=== PATIENT | male | born 1950 | race Caucasian/White ===

== ENCOUNTER 2021-01-17 12:34 | Outpatient (CLI) | payer MEDICARE, SELFPAY ==
--- NOTE | ~2021-01-17 | XR_ITS ---
EXAMINATION: XR chest 2V DATE: 01/17/2021 15:21 INDICATION: Cough. Pneumonia. TECHNIQUE: Frontal and lateral views of the chest were obtained. COMPARISON: Chest 2 views 11/06/2018 FINDINGS: There is mild atelectasis in left lower lung zone. No pleural effusion or pneumothorax. The heart size is normal. There is a right internal jugular port with tip at superior cavoatrial junctio n. There are old healed bilateral rib fractures. IMPRESSION: 1. Mild atelectasis in left lower lung zone. Reviewed, dictated and finalized at location A.
[2021-01-17 13:47] LABS: SARS-CoV-2 RNA PCR Negative (Negative)
[2021-01-17 15:10] LABS: Basophils Absolute Auto 0.02 K/mm3 (0.00-0.10); Basophils Percent Auto 0.2 % (0.0-1.0); Eosinophils Absolute Auto 0.27 K/mm3 (0.02-0.50); Eosinophils Percent Auto 2.5 % (1.0-6.0); Hematocrit 44.2 % (37.0-46.0); Hemoglobin 14.1 g/dL (12.4-15.3); Immature Granulocyte Absolute 0.04 K/mm3 (0.00-0.00); Immature Granulocyte Percent A 0.4 % (0.0-0.0); Lymphocytes Absolute Auto 0.93 K/mm3 (1.10-4.50); Lymphocytes Percent Auto 8.6 % (18.0-42.0); Mean Corpuscular HGB Conc 31.9 g/dL (32.0-36.0); Mean Corpuscular Hemoglobin 31.2 pg (27.0-31.0); Mean Corpuscular Volume 97.8 fL (78.0-102.0); Mean Platelet Volume 8.8 fl (8.7-11.0); Monocytes Absolute Auto 0.67 K/mm3 (0.10-0.90); Monocytes Percent Auto 6.2 % (2.0-11.0); Neutrophils Absolute Auto 8.8 K/mm3 (1.7-7.2); Neutrophils Percent Auto 82.1 % (50.0-70.0); Platelet Count Result 145 K/mm3 (150-420); Red Blood Count 4.52 M/mm3 (4.70-6.10); Red Cell Distribution Width 13.5 % (11.6-14.4); White Blood Count 10.8 K/mm3 (4.8-10.8)
[2021-01-17 15:43] LABS: Alanine Aminotransferase 36 U/L (16-63); Albumin Level 3.9 g/dL (3.4-5.0); Alkaline Phosphatase 62 U/L (46-116); Anion Gap 11 mmol/L (8-16); Aspartate Amino Transferase 12 U/L (15-37); Bilirubin,Total 0.7 mg/dL (0.00-1.00); Blood Urea Nitrogen 29 mg/dL (7-18); Calcium 9.2 mg/dL (8.5-10.1); Carbon Dioxide 31 mmol/L (21-32); Chloride 102 mmol/L (98-108); Estimated Glomerular Filt Rate 43; Glucose 107 mg/dL (70-99); Osmolality Calculated 303 mOsm/kg (285-295); Potassium 3.8 mmol/L (3.5-5.1); Sodium 144 mmol/L (136-145); Total Protein 6.8 g/dL (6.4-8.2)
[2021-01-17 16:25] LABS: Prostate Specific Antigen 4.1 ng/mL (< OR = 4.0)
== END 2021-01-17 12:35 | disposition home or self-care (01) ==
LOC: CHSLAB 12:41 → CHSIMG 14:58
PROVIDERS: PCP Internal Medicine; Visit Provider Internal Medicine
DX: R05 Cough (principal); J06.9 Acute upper respiratory infection, unspecified; Z12.5 Encounter for screening for malignant neoplasm of prostate; Z20.822 Contact with and (suspected) exposure to COVID-19
CPT/HCPCS: 36415; 71046; 80053; 84153; 85025; 87081; 87880; C9803; G0103; U0003; U0005

== ENCOUNTER 2021-02-05 07:02 | Outpatient (CLI) | payer MEDICARE, SELFPAY ==
--- NOTE | ~2021-02-05 | XR_ITS ---
EXAMINATION: XR chest 2V DATE: 02/05/2021 07:26 INDICATION: Cough TECHNIQUE: PA and lateral views of the chest are obtained. COMPARISON: 01/17/2021 FINDINGS: The lungs are free of acute opacities. There is no pleural effusion or pneumothorax. The ca rdiomediastinal silhouette is normal. There is moderate thoracic spondylosis. A right internal jugula r Port-A-Cath ends with its tip at the superior cavoatrial junction. There are healed bilateral rib f ractures. IMPRESSION: 1. No acute cardiopulmonary abnormality. Reviewed, dictated and finalized at location A.
[2021-02-05 07:52] LABS: Anion Gap 6 mmol/L (8-16); Blood Urea Nitrogen 33 mg/dL (7-18); Calcium 9.2 mg/dL (8.5-10.1); Carbon Dioxide 32 mmol/L (21-32); Chloride 105 mmol/L (98-108); Estimated Glomerular Filt Rate 42; Glucose 113 mg/dL (70-99); Osmolality Calculated 304 mOsm/kg (285-295); Potassium 4.2 mmol/L (3.5-5.1); Sodium 143 mmol/L (136-145)
== END 2021-02-05 07:03 | disposition home or self-care (01) ==
LOC: CHSLAB 07:04
PROVIDERS: PCP Internal Medicine; Visit Provider Internal Medicine
DX: R05 Cough (principal); R79.89 Other specified abnormal findings of blood chemistry; J18.9 Pneumonia, unspecified organism; Z09 Encounter for follow-up examination after completed treatment for conditions other than malignant neoplasm
CPT/HCPCS: 36415; 71046; 80048

== ENCOUNTER 2021-07-30 07:12 | Emergency (ER) | payer MEDICARE, SELFPAY ==
--- NOTE | 2021-07-30 07:20 | ED.EYEPROB ---
HPI - Eye Problem General Chief complaint: Eye Problems Stated complaint: left eye infection Time Seen by Provider: 07/30/21 07:21 Source: patient and RN notes reviewed Mode of arrival: ambulatory Limitations: no limitations History of Present Illness chief complaint: eye redness Onset (ago): day(s) (2) Onset description: sudden Duration: constant and progressively worsening Location: left eye Eye Symptoms: burning, redness and discharge (watery) Place: home Severity: mild Associated symptoms: none Treatments Prior to Arrival: none Related Data Home Medications Medication Instructions Recorded Confirmed Adult Aspirin 325 mg PO DAILY 07/30/21 07/30/21 acyclovir 400 mg PO BID 07/30/21 07/30/21 famotidine 20 mg PO BID 07/30/21 07/30/21 hydrocodone-acetaminophen 10 - 325 mg PO Q6-8H PRN 07/30/21 07/30/21 losartan 50 mg PO DAILY 07/30/21 07/30/21 nebivolol [Bystolic] 10 mg PO DAILY 07/30/21 07/30/21 pomalidomide [Pomalyst] 1 mg PO DAILY 07/30/21 07/30/21 potassium chloride 10 meq PO DAILY 07/30/21 07/30/21 triamterene-hydrochlorothiazid 1 tablet PO DAILY 07/30/21 07/30/21 Allergies Allergy/AdvReac Type Severity Reaction Status Date / Time No Known Allergies Allergy Verified 07/30/21 07:24 Review of Systems Review of Systems: All systems reviewed & are unremarkable except as noted in HPI and below PMFSH Past Medical History Medical History (Updated 07/30/21 @ 07:38 by William Villalpando MD) Hypertension Multiple myeloma Surgical History Surgical History (Updated 07/30/21 @ 07:38 by William Villalpando MD) Previous back surgery Social History Social History (Updated 07/30/21 @ 07:38 by William Villalpando MD) Smoking status: Never smoker Alcohol intake: never Substance use: never Exam Const: General: healthy appearing, no acute distress and alert Nutritional Appearance: well nourished and obese centrally obese Orientation/consciousness: patient oriented x3 HENMT: Head: normal to inspection Ears: external ears normal Eyes: Eyelids: eyelids normal Conjunctivae: conjunctival abnormality left conjunctival injection diffuse and discharge other (watery clear) Sclera: scleral abnormality left scleral injection diffuse Neck: Neck: normal visual inspection Resp: Effort & Inspection: normal respiratory effort Auscultation: clear to auscultation bilaterally Cardio: Rate: regular rate Rhythm: regular rhythm GI: GI Palp: Yes Soft to palpation, No Tenderness to palpation present (GI) and No Guarding due to palpation present (GI) Auscultation: normal bowel sounds Back/Spine/Pelvis: Cervical Spine: cervical ROM normal Thoracic/Lumbar Spine: thoraco-lumbar ROM normal Skin: General skin exam: normal color Rashes: no rashes Neuro: General: patient oriented x3, moves all extremities and no focal motor deficits Speech: normal speech Gait exam (Neuro): Normal gait present Extrem: General: normal to inspection and no clubbing, cyanosis or edema Psych: Appearance: grossly normal and well kempt Mental Status: mental status grossly normal Affect: normal affect Attitude: cooperative Thought content: Yes Normal thought content present Course Vital Signs Vital signs: Vital Signs Temperature 35.8 C L 07/30/21 07:25 Pulse Rate 82 07/30/21 07:25 Respiratory Rate 16 07/30/21 07:25 Blood Pressure 166/87 H 07/30/21 07:25 Pulse Oximetry 98 07/30/21 07:25 Temperature 35.8 C L 07/30/21 07:34 Pulse Rate 82 07/30/21 07:34 Respiratory Rate 16 07/30/21 07:34 Blood Pressure 166/87 H 07/30/21 07:34 Pulse Oximetry 98 07/30/21 07:34 Discharge Plan Discharge Clinical Impression: Conjunctivitis Qualifiers: Conjunctivitis type: acute Acute conjunctivitis type: bacterial Laterality: left Qualified Code(s): H10.32 - Unspecified acute conjunctivitis, left eye Patient Disposition: Home, Self-Care Condition: Stable Instructions: Conjunctivitis (ED) Prescriptions: New
[2021-07-30 07:25] VITALS: BP 166/87; PULSE 82; RESP 16; TEMP 35.8; O2SAT 98
[2021-07-30 07:34] VITALS: BP 166/87; PULSE 82; RESP 16; TEMP 35.8; O2SAT 98
== END 2021-07-30 07:44 | disposition home or self-care (01) ==
PROVIDERS: Emergency Provider Emergency Medicine; PCP Internal Medicine
DX: H10.32 Unspecified acute conjunctivitis, left eye (principal)
CPT/HCPCS: 99283

== ENCOUNTER 2021-12-25 13:30 | Outpatient (CLI) | payer MEDICARE, SELFPAY | END 2021-12-25 13:31 | disposition home or self-care (01) | LOC: CHSLAB 13:34 | PROVIDERS: PCP Internal Medicine | DX: C90.00 Multiple myeloma not having achieved remission (principal) | CPT/HCPCS: 87324 ==

== ENCOUNTER 2022-04-26 09:44 | Outpatient (CLI) | payer MEDICARE, SELFPAY | END 2022-04-26 09:45 | disposition home or self-care (01) | LOC: CHSLAB 09:49 | PROVIDERS: PCP Internal Medicine; Visit Provider Internal Medicine | DX: J32.9 Chronic sinusitis, unspecified (principal); R05.3 Chronic cough | CPT/HCPCS: 87070; 87205 ==

== ENCOUNTER 2022-05-06 08:37 | Outpatient (CLI) | payer MEDICARE, SELFPAY ==
--- NOTE | ~2022-05-06 | CT_ITS ---
EXAMINATION: CT sinus wo con DATE: 05/06/2022 09:04 INDICATION: Congestion for 2 months. Greenish sputum. TECHNIQUE: Computed tomography (CT) of the paranasal sinuses was performed without contrast. Iterativ e reconstruction technique was employed. Exam dose: 311.14 mGy-cm total exam DLP. COMPARISON: 10/23/2013 CT abdomen FINDINGS: There is minimal leftward bowing of the very anterior portion of the nasal septum, minimal rightward bowing of the mid nasal septum and more prominent leftward deviation of the posterior aspec t of the nasal septum. Moderate soft tissue swelling of the nasal turbinates. The ostiomeatal units are completely opacified bilaterally. There is severe mucoperiosteal thickening of the frontal sinuses and maxillary sinuses, with minimal residual aeration of these structures. There is severe bilateral opacification of the ethmoid air an ls. Moderate mucoperiosteal thickening of the sphenoid sinuses. The mastoid air cells are normally developed and aerated bilaterally. Middle and inner ear apparatus appear unremarkable bilaterally. IMPRESSION: Complete opacification of the ostiomeatal units and severe mucoperiosteal thickening and near opacification of the frontal and maxillary sinuses, prominent patchy opacification of the ethmo id air cells Mild to moderate mucoperiosteal thickening of the sphenoid sinuses Reviewed, dictated and finalized at [facility]. Reviewed, dictated and finalized at location B. CLOSER IMPRESSION: Complete opacification of the ostiomeatal units and severe mucoper iosteal thickening and near opacification of the frontal and maxillary sinuses, prominent patchy opacification of the ethmoid air cells Mild to moderate mucoperiosteal thickening of the sphenoid sinuses
== END 2022-05-06 08:38 | disposition home or self-care (01) ==
PROVIDERS: PCP Internal Medicine; Visit Provider Internal Medicine
DX: J32.9 Chronic sinusitis, unspecified (principal)
CPT/HCPCS: 70486

== ENCOUNTER 2022-07-11 07:07 | Outpatient (CLI) | payer MEDICARE, SELFPAY ==
--- NOTE | ~2022-07-11 | CT_ITS ---
Clinical Indication: Multiple myeloma CT Scan of the Chest with Contrast: Technique: Contiguous sections were acquired throughout the chest after intravenous administration of 75 cc of Omnipaque 350. Dose reduction technique was used on this scan by utilizing automated exposu re control and iterative reconstruction technique. The dose-length product (DLP) was 587.86 mGy-cm. Findings: There is no evidence of any significant mediastinal, hilar or axillary lymphadenopathy. There is no f illing defect in the pulmonary arterial tree to suggest pulmonary embolus. There is no evidence of ao rtic dissection or aneurysm. There is no evidence of pleural or pericardial effusion. Questionable minimal tree-in-bud opacities at the left lung base. Right lung is clear.. Images through the upper abdomen reveal diffuse fatty infiltration of the liver. There are probable chronic, healed left rib fracture deformities. No lytic lesion evident. Impression: No lytic lesion noted on the current exam. Probable chronic, healed left rib fracture deformities. Questionable minimal tree-in-bud opacities left lung base. Correlate for small airways infection. Reviewed, dictated and finalized at [facility]. TABOUT CREW Impression: No lytic lesion noted on the current exam. Probable chronic, healed left rib fr acture deformities. Questionable minimal tree-in-bud opacities left lung base. Correlate for small airways infection.
[2022-07-11 07:35] LABS: Estimated Glomerular Filt Rate 52
== END 2022-07-11 07:08 | disposition home or self-care (01) ==
PROVIDERS: PCP Internal Medicine
DX: C90.00 Multiple myeloma not having achieved remission (principal); R91.8 Other nonspecific abnormal finding of lung field
CPT/HCPCS: 71260; Q9967

== ENCOUNTER 2023-07-05 11:59 | Emergency (ER) | payer MEDICARE, SELFPAY ==
--- NOTE | ~2023-07-05 | XR_ITS ---
XR forearm LT 2V 07/05/2023 13:04 INDICATION: Left arm pain after fall PROCEDURE: 2 views left forearm COMPARISON: No prior studies for comparison. FINDINGS: Fracture, dislocation or subluxation is not identified. The soft tissues appear within norm al limits. No foreign bodies are identified. IMPRESSION: 1: NO ACUTE BONE OR JOINT ABNORMALITY IDENTIFIED. Reviewed, dictated and finalized at location B. FACTURING ENGINEER ASSEMBLY
--- NOTE | ~2023-07-05 | CT_ITS ---
EXAMINATION: CT BRAIN W/O DATE: 07/05/2023 13:03 INDICATION: Status post fall. Lightheadedness. TECHNIQUE: Computed tomography (CT) of the head was performed without intravenous contrast. The dose- length product was 681.00 mGy-cm. Automated exposure control and iterative reconstruction technique w ere employed. COMPARISON: No prior studies for comparison. FINDINGS: Normal brain parenchymal volume for age. Normal waldron-white differentiation. No acute intrac ranial hemorrhage, infarction, mass or mass effect. No ventriculomegaly or midline shift. Midline sagittal images demonstrate a normal corpus callosum, c raniovertebral junction and sella turcica. Basilar cisterns are patent. There is mucosal thickening of the maxillary, frontal, ethmoid and sphenoid sinuses. Mastoids are pne umatized. IMPRESSION: 1. No acute intracranial abnormality. 2: Pansinusitis. Reviewed, dictated and finalized at location B. HETIC STAPLE EXTRUDER
--- NOTE | ~2023-07-05 | XR_ITS ---
XR hand LT 2V 07/05/2023 13:05 INDICATION: Left hand pain after fall PROCEDURE: 3 views left hand COMPARISON: No prior studies for comparison. FINDINGS: Fracture, dislocation or subluxation is not identified. The soft tissues appear within norm al limits. No foreign bodies are identified. IMPRESSION: 1: NO ACUTE BONE OR JOINT ABNORMALITY IDENTIFIED. Reviewed, dictated and finalized at location B. LIFT MECHANIC
--- NOTE | ~2023-07-05 | CT_ITS ---
EXAMINATION: CT cervical spine wo con DATE: 07/05/2023 13:04 INDICATION: Status post fall. TECHNIQUE: Computed tomography (CT) of the cervical spine was performed without intravenous contrast. The dose-length product was 443 mGy-cm. Automated exposure control and iterative reconstruction tech nique were employed. COMPARISON: None FINDINGS: No fracture, subluxation or dislocation. Craniovertebral junction is normal. Odontoid proce ss is normal. There is disc narrowing and endplate degenerative change at multiple levels most advanc ed at C5-6 and C6-7. No evidence for perched facet. Spinous processes are normal. There is mild multi level uncinate and facet hypertrophy. No paraspinal soft tissue abnormality. IMPRESSION: 1. No acute abnormality of the cervical spine. Reviewed, dictated and finalized at location B. ECTRIC PRESS OPERATOR
--- NOTE | ~2023-07-05 | CT_ITS ---
EXAMINATION: CT lumbar spine wo con DATE: 07/05/2023 13:05 INDICATION: Back pain. Status post fall. TECHNIQUE: Computed tomography (CT) of the was performed without intravenous contrast. The dose-lengt h product was 1201.11 mGy-cm. Automated exposure control and iterative reconstruction technique were employed. COMPARISON: None FINDINGS: There is levoscoliosis. There is disc narrowing at L3-4, L4-5 and L5-S1. Vertebral body hei ghts are maintained. There is multilevel facet hypertrophy. There is grade 1 spondylolisthesis at L4- 5 secondary to degenerative change. There is a left-sided pseudoarticulation at L5-S1. There is a com plex partially calcified mass of the left kidney, suspicious for malignancy. Recommend correlation wi th MRI abdomen. There is a large exophytic right renal cyst, partially visualized. IMPRESSION: 1. No acute abnormality of the abdomen. 2: Complex partially calcified 3 cm left renal mass, suspicious for malignancy. Recommend correlatio n with MRI without and with contrast. 3: Moderate lumbar spondylosis. Reviewed, dictated and finalized at location B. LE TENDER IMPRESSION: 1. No acute abnormality of the abdomen. 2: Complex partially calcified 3 cm left renal mass, suspicious for malignancy . Recommend correlation with MRI without and with contrast. 3: Moderate lumbar spondylosis.
[2023-07-05 12:02] VITALS: BP 159/90; PULSE 76; TEMP 36.8; O2SAT 96
--- NOTE | 2023-07-05 12:46 | ECG_ITS ---
Measurements Intervals Maurice Rate: 75 P: 242 MI: 151 QRS: -46 QRSD: 105 T: -79 QT: 379 QTc: 424 Interpretive Statements SINUS RHYTHM EARLY PRECORDIAL R/S TRANSITION INFERIOR INFARCT, AGE INDETERMINATE BASELINE ARTIFACT- I, II, III, AVR, AVL, AVF, V1 ABNORMAL ECG NO PREVIOUS ECG AVAILABLE FOR COMPARISON Electronically Signed On 07-07-2023 12:01:16 BREAKER OPERATOR by Porfirio Mendoza D.O.
[2023-07-05 13:18] LABS: Hematocrit 41.7 % (37.0-46.0); Hemoglobin 12.2 g/dL (12.4-15.3); Mean Corpuscular HGB Conc 29.3 g/dL (32.0-36.0); Mean Corpuscular Hemoglobin 25.3 pg (27.0-31.0); Mean Corpuscular Volume 86.3 fL (78.0-102.0); Mean Platelet Volume 8.8 fl (8.7-11.0); Platelet Count Result 219 K/mm3 (150-420); Red Blood Count 4.83 M/mm3 (4.70-6.10); Red Cell Distribution Width 17.9 % (11.6-14.4); White Blood Count 8.7 K/mm3 (4.8-10.8)
[2023-07-05 13:35] LABS: Alanine Aminotransferase 26 U/L (16-63); Albumin Level 3.5 g/dL (3.4-5.0); Alkaline Phosphatase 69 U/L (46-116); Anion Gap 7 mmol/L (8-16); Aspartate Amino Transferase 16 U/L (15-37); Bilirubin,Total 0.7 mg/dL (0.00-1.00); Blood Urea Nitrogen 27 mg/dL (7-18); Calcium 8.9 mg/dL (8.5-10.1); Carbon Dioxide 32 mmol/L (21-32); Chloride 103 mmol/L (98-108); Estimated CRCL calculation 59 ml/min; Estimated Glomerular Filt Rate 52; Glucose 112 mg/dL (70-99); Osmolality Calculated 300 mOsm/kg (285-295); Potassium 4.1 mmol/L (3.5-5.1); Sodium 142 mmol/L (136-145); Total Protein 6.5 g/dL (6.4-8.2)
--- NOTE | 2023-07-05 13:42 | ED.FALL ---
HPI - Fall General Chief Complaint: Fall Stated Complaint: fall Time Seen by Provider: 07/05/23 12:02 Source: patient and family Mode of arrival: ambulatory Limitations: no limitations History of Present Illness HPI Narrative: 72 yo M with PMHx of chronic sinusitis, HTN, chronic back pain, presents to ER after falling today. Said since his sinus surgery for persistent chronic sinus disease, he's been having increased coughing. Today was having a coughing fit, after which he became lightheaded and fell to the ground. May have blacked out for a few seconds. hit his head, left hand and left forearm while catching himself on the ground. In ER, he is alert, awake, giving clear history. He denied any headache, chest pain, or shortness of breath. Related Data Home Medications Medication Instructions Recorded Confirmed Adult Aspirin 325 mg PO DAILY 07/30/21 07/05/23 famotidine 20 mg PO BID 07/30/21 07/05/23 hydrocodone-acetaminophen 10 - 325 mg PO Q6-8H PRN Pain 07/30/21 07/05/23 losartan 50 mg PO DAILY 07/30/21 07/05/23 nebivolol 10 mg tablet (Bystolic) 10 mg PO DAILY 07/30/21 07/05/23 potassium chloride 10 mEq 10 meq PO DAILY 07/30/21 07/05/23 tablet,extended release allopurinol 300 mg tablet 300 mg PO DAILY 07/05/23 07/05/23 Allergies Allergy/AdvReac Type Severity Reaction Status Date / Time No Known Allergies Allergy Verified 07/05/23 12:54 Review of Systems Constitutional: Constitutional: Reports as per HPI and Reports no additional constitutional complaints Eyes: Eyes: Reports as per HPI and Reports no additional eye complaints ENT: Reports system reviewed and no additional complaints, except as documented and Reports as per HPI Cardiovascular: Cardiovascular: Reports as per HPI and Reports no additional cardiovascular complaints Respiratory: Respiratory: Reports as per HPI and Reports no additional respiratory complaints Gastrointestinal: Gastrointestinal: Reports as per HPI and Reports no additional gastrointestinal complaints Genitourinary: Genitourinary: Reports as per HPI Musculoskeletal: Musculoskeletal: Reports no additional musculoskeletal complaints and Reports as per HPI Integumentary/Breasts: Skin/Breast: Reports system reviewed and no additional complaints, except as docu and Reports as per HPI Neurologic: Reports system reviewed and no additional complaints, except as documented and Reports as per HPI Psychiatric: Psychiatric: Reports no additional psychiatric complaints and Reports as per HPI Endocrine: Endocrine: Reports no additional endocrine complaints and Reports as per HPI Hematologic/Lymphatic: Hematologic/Lymphatic: Reports no additional hematologic/lymphatic complaints and Reports as per HPI Allergic/Immunologic: Allergic/Immunologic: Reports no additional allergic/immunologic complaints and Reports as per HPI [facility] Past Medical History Medical History (Updated 07/05/23 @ 13:44 by Raji Estrada MD) Hypertension Multiple myeloma Surgical History Surgical History (System 09/04/22 @ 08:12 by Sveta Barrios) Previous back surgery Social History Social History (System 09/04/22 @ 08:12 by Sveta Barrios) Smoking status: Never smoker Alcohol intake: never Substance use: never Exam Const: General: cooperative, healthy appearing, comfortable, no acute distress, well developed, alert, awake, average body habitus and well nourished Nutritional Appearance: obese Orientation/consciousness: oriented to person, oriented to place and oriented to time Limitations: no limitations HENMT: Head: normal to inspection Ears: hearing grossly normal bilaterally, external ears normal and TM's normal bilaterally Face/Nose/Sinus: Normal external nose present, Normal nares present, No nasal polyps present, Normal nasal mucous membranes and turbinates present, Normal septum present, No nasal discharge present, normal facial exam, sinuses nontender and face symmetric Face and sinus: n
[2023-07-05 13:50] VITALS: BP 145/70; PULSE 79; RESP 16; TEMP 36.5; O2SAT 99
== END 2023-07-05 13:52 | disposition home or self-care (01) ==
PROVIDERS: Emergency Provider Emergency Medicine; PCP Internal Medicine
DX: R55 Syncope and collapse (principal); I10 Essential (primary) hypertension; Z79.82 Long term (current) use of aspirin; Z79.891 Long term (current) use of opiate analgesic; Z79.899 Other long term (current) drug therapy; W19.XXXA Unspecified fall, initial encounter
CPT/HCPCS: 36415; 70450; 72125; 72131; 73090; 73120; 80053; 85027; 93005; 99284

== ENCOUNTER 2023-08-06 08:10 | Emergency (ER) | payer MEDICARE, SELFPAY ==
[2023-08-06] VITALS (9 sets, daily range): BP systolic 113–141; BP diastolic 65–79; PULSE 83–105; RESP 16; TEMP 36.7–37.1; O2SAT 94–97
--- NOTE | ~2023-08-06 | XR_ITS ---
EXAMINATION: XR chest 1V portable DATE: 08/06/2023 09:08 INDICATION: Fever, chronic cough and multiple myeloma TECHNIQUE: frontal view of the chest was obtained. COMPARISON: Chest radiograph dated 02/05/2021 FINDINGS: Right internal jugular central venous port catheter with distal tip at the caudal superior vena cava. The lungs remain clear with no focal airspace opacities, pulmonary edema, pleural effusion or pneumo thorax. The cardiomediastinal silhouette is normal. A few bilateral old healed rib fractures. IMPRESSION: 1. No acute cardiopulmonary disease. Reviewed, dictated and finalized at location B. ERCIAL INTERNSHIP
--- NOTE | ~2023-08-06 | CT_ITS ---
EXAMINATION: CT brain wo con DATE: 08/06/2023 09:17 INDICATION: Altered mental status. TECHNIQUE: Computed tomography (CT) of the head was performed without intravenous contrast. The mA wa s adjusted according to patient size. Iterative reconstruction technique was employed. The dose-lengt h product was 605.33 mGy-cm. COMPARISON: Head CT 07/05/2023 FINDINGS: There is no intracranial hemorrhage, acute infarction, or abnormal intracranial mass lesion . The ventricles are normal in size. There is extensive mucosal thickening in the paranasal sinuses w ith thickening of the sinus carrasquillo, consistent with chronic sinusitis. There are changes of ethmoidect omies. There are likely changes of ocular lens replacement surgeries. The mastoid air cells are linda l. IMPRESSION: 1. Normal brain. 2. Chronic sinusitis. Reviewed, dictated and finalized at location A. EATION PROGRAM SPECIALIST
--- NOTE | 2023-08-06 08:42 | ED.AMS ---
HPI - Altered Mental Status General Chief Complaint: Altered Mental Status Stated Complaint: uti Time Seen by Provider: 08/06/23 08:25 Source: patient and family History of Present Illness HPI narrative: 72-year-old male with a history of chronic sinusitis status post sinus surgery, chronic low back pain status post back surgery, CKD, hypertension, prostatitis, multiple myeloma status post stem cell transplant and currently on a research truck got chemotherapy yesterday and presents to the ER with a 1 day history of -- dysuria with increased frequency of micturition -- fever with a T-max of 100.4? this morning -- altered mental status-- patient appears to be staring blankly but is oriented. No focal neuro deficits. MD complaint: altered mental status Onset (ago): day(s) ( Symptoms started yesterday.) Timing confirmed by: spouse Severity: mild Consistency of symptoms: constant Context: history of similar presentation ( History of similar presentation during a prior UTI.) and cancer Associated symptoms: cough and fever Related Data Home Medications Medication Instructions Recorded Confirmed famotidine 20 mg PO BID 07/30/21 08/06/23 hydrocodone-acetaminophen 10 - 325 mg PO Q6-8H PRN Pain 07/30/21 08/06/23 losartan 50 mg PO DAILY 07/30/21 08/06/23 nebivolol 10 mg tablet (Bystolic) 5 mg PO DAILY 07/30/21 08/06/23 potassium chloride 10 mEq 10 meq PO DAILY 07/30/21 08/06/23 tablet,extended release allopurinol 300 mg tablet 300 mg PO DAILY 07/05/23 08/06/23 acyclovir 400 mg tablet 400 mg PO BID 08/06/23 08/06/23 budesonide 0.5 mg/2 mL suspension 0.5 mg inhalation DAILY 08/06/23 08/06/23 for nebulization ferrous sulfate 325 mg (65 mg 325 mg PO BID 08/06/23 08/06/23 iron) tablet triamcinolone acetonide 0.5 % 1 applic topical BID 08/06/23 08/06/23 topical cream triamterene 37.5 1 tablet PO DAILY 08/06/23 08/06/23 mg-hydrochlorothiazide 25 mg tablet Allergies Allergy/AdvReac Type Severity Reaction Status Date / Time No Known Allergies Allergy Verified 08/06/23 08:20 Review of Systems Review of Systems: All systems reviewed & are unremarkable except as noted in HPI and below Constitutional: Constitutional: Reports as per HPI, Reports no additional constitutional complaints and Reports fever(s) Eyes: Eyes: Reports as per HPI and Reports no additional eye complaints ENT: Reports system reviewed and no additional complaints, except as documented and Reports as per HPI Comments: Chronic nasal congestion with postnasal drip. Cardiovascular: Cardiovascular: Reports as per HPI and Reports no additional cardiovascular complaints Respiratory: Respiratory: Reports as per HPI, Reports no additional respiratory complaints and Reports cough Gastrointestinal: Gastrointestinal: Reports as per HPI and Reports no additional gastrointestinal complaints Genitourinary: Genitourinary: Reports no additional male genitourinary complaints, Reports dysuria and Reports urinary frequency Musculoskeletal: Musculoskeletal: Reports no additional musculoskeletal complaints and Reports as per HPI Integumentary/Breasts: Skin/Breast: Reports system reviewed and no additional complaints, except as docu and Reports as per HPI Neurologic: Reports system reviewed and no additional complaints, except as documented, Reports as per HPI and Reports confusion Psychiatric: Psychiatric: Reports no additional psychiatric complaints and Reports as per HPI Endocrine: Endocrine: Reports no additional endocrine complaints and Reports as per HPI Hematologic/Lymphatic: Hematologic/Lymphatic: Reports no additional hematologic/lymphatic complaints and Reports as per HPI Allergic/Immunologic: Allergic/Immunologic: Reports no additional allergic/immunologic complaints and Reports as per HPI [facility] Past Medical History Medical History (Updated 08/06/23 @ 10:39 by Mandeep Cardona MD) Hypertension Multiple myeloma Sinusitis Surgical History S
[2023-08-06 08:58] LABS: Basophils Absolute Auto 0.03 K/mm3 (0.00-0.10); Basophils Percent Auto 0.3 % (0.0-1.0); Eosinophils Absolute Auto 0.02 K/mm3 (0.02-0.50); Eosinophils Percent Auto 0.2 % (1.0-6.0); Hematocrit 39.1 % (37.0-46.0); Hemoglobin 11.9 g/dL (12.4-15.3); Immature Granulocyte Absolute 0.06 K/mm3 (0.00-0.00); Immature Granulocyte Percent A 0.5 % (0.0-0.0); Lymphocytes Absolute Auto 0.44 K/mm3 (1.10-4.50); Lymphocytes Percent Auto 3.9 % (18.0-42.0); Mean Corpuscular HGB Conc 30.4 g/dL (32.0-36.0); Mean Corpuscular Hemoglobin 25.4 pg (27.0-31.0); Mean Corpuscular Volume 83.4 fL (78.0-102.0); Mean Platelet Volume 8.8 fl (8.7-11.0); Neutrophils Absolute Auto 9.8 K/mm3 (1.7-7.2); Neutrophils Percent Auto 87.1 % (50.0-70.0); Platelet Count Result 169 K/mm3 (150-420); Red Blood Count 4.69 M/mm3 (4.70-6.10); Red Cell Distribution Width 16.9 % (11.6-14.4); White Blood Count 11.2 K/mm3 (4.8-10.8)
[2023-08-06 09:10] LABS: Appearance Urine Slightly Cloudy (Clear); Bilirubin Urine Negative (Negative); Color Urine Light Yellow (Yellow); Glucose Urine UA Negative (Negative); Ketones Urine Negative (Negative); Leukocyte Esterase Ur 1+ LEU/UL (Negative); Nitrate Urine Negative (Negative); Protein Urine Trace (Negative); Specific Grav Ur 1.025 (1.010-1.020); Urobilinogen Urine 0.2 mg/dL (0.2-1.0); pH Urine 5.5 (5.0-8.0)
[2023-08-06 09:15] LABS: Add Urine Microscopic? YES; Bacteria Urine 3+ /hpf; Blood Urine Trace-lysed (Negative); RBC Urine 0-2 /hpf (0-2)
[2023-08-06 09:19] LABS: Lactic Acid Reflex 1.1 mmol/L (0.4-2.0)
[2023-08-06 09:23] LABS: Uric Acid 7.6 mg/dL (3.5-7.2)
[2023-08-06 09:24] LABS: Magnesium 1.8 mg/dL (1.8-2.4)
[2023-08-06 09:28] LABS: Alanine Aminotransferase 18 U/L (16-63); Albumin Level 3.2 g/dL (3.4-5.0); Alkaline Phosphatase 59 U/L (46-116); Anion Gap 10 mmol/L (8-16); Aspartate Amino Transferase 14 U/L (15-37); Bilirubin,Total 0.8 mg/dL (0.00-1.00); Blood Urea Nitrogen 21 mg/dL (7-18); Calcium 8.5 mg/dL (8.5-10.1); Carbon Dioxide 29 mmol/L (21-32); Chloride 103 mmol/L (98-108); Estimated CRCL calculation 59 ml/min; Estimated Glomerular Filt Rate 52; Glucose 139 mg/dL (70-99); Lipase 17 U/L (16-77); NT Pro B Type Natriuretic Pept 383 pg/mL (0-125); Osmolality Calculated 299 mOsm/kg (285-295); Potassium 3.2 mmol/L (3.5-5.1); Sodium 142 mmol/L (136-145); Total Protein 6.3 g/dL (6.4-8.2); Troponin I 35.2 ng/L (0.00-60.4)
[2023-08-06] MEDS: LIDOCAINE HCL 1% LOCAL INJ 10 ML VIAL 2 ML INFILTRATE (10:23)
[2023-08-06 10:24] LABS: Influenza A QL RT-PCR Negative (Negative); Influenza B QL RT-PCR Negative (Negative); RSV RNA, RT-PCR Negative (Negative); SARS-CoV-2 RNA PCR Negative (Negative)
[2023-08-06] MEDS: cefTRIAXone 1 GM VIAL IM (10:24)
[2023-08-06 12:11] LABS: Prostate Specific Antigen 23.5 ng/mL (< OR = 4.0)
--- NOTE | 2023-08-08 14:27 | PC.NURSE ---
urine culture reviewed, pt was admitted to floor and on abt. no action needed
== END 2023-08-06 10:47 | disposition home or self-care (01) ==
PROVIDERS: Emergency Provider Internal Medicine Critical Care Medicine; PCP Internal Medicine
DX: N30.00 Acute cystitis without hematuria (principal); M1A.20X0 Drug-induced chronic gout, unspecified site, without tophus (tophi); R41.0 Disorientation, unspecified; C90.00 Multiple myeloma not having achieved remission; I12.9 Hypertensive chronic kidney disease with stage 1 through stage 4 chronic kidney disease, or unspecified chronic kidney disease; N18.31 Chronic kidney disease, stage 3a; Z79.899 Other long term (current) drug therapy; Z79.891 Long term (current) use of opiate analgesic; Z20.822 Contact with and (suspected) exposure to COVID-19; Z79.60 Long term (current) use of unspecified immunomodulators and immunosuppressants
CPT/HCPCS: 36415; 70450; 71045; 80053; 81001; 83605; 83690; 83735; 83880; 84153; 84484; 84550; 85025; 87077; 87086; 87088; 87186; 87637; 96365; 96366; 96367; 96368; 96372; 99284; 99285; A9270; G0378; J0692; J0696; J3370

== ENCOUNTER 2023-08-06 16:03 | Inpatient (IN) | payer MEDICARE, SELFPAY ==
[2023-08-06 16:05] VITALS: BP 129/79; PULSE 94; RESP 16; TEMP 37.2; O2SAT 98
--- NOTE | 2023-08-06 16:16 | ED.MALEGU ---
HPI - Male Genitourinary General Chief complaint: Urogenital-Male Stated complaint: UTI/ admit Time Seen by Provider: 08/06/23 16:14 Source: patient and family Mode of arrival: wheelchair Limitations: no limitations History of Present Illness HPI Narrative: 72-year-old male with a history of hypertension, chronic sinusitis status post surgery, CKD with a baseline crit GFR of 59, chronic low back pain, prostatitis, multiple myeloma status post failed stem cell transplant, failed usual chemotherapy and currently on a research chemotherapeutic medication which he received yesterday presented to the ER this morning with recurrent coughing, altered mental status, dysuria with increased frequency of micturition and fever with a T-max of 100.4?. The patient had a CT of the head which do not show any acute findings. the patient had a chest x-ray which did not show any infiltrates or evidence of CHF. The patient was noted to have urinary tract infection with elevated white cell count, elevated uric acid level of 7.6 and CKD with a BUN/creatinine of 21/1.36. He tested negative for influenza / COVID/RSV. The patient received Rocephin IM x1 and was discharged home on Augmentin. Subsequently the patient went to his primary care physician who contacted his cancer specialist. In view of his immunocompromised state the patient is advised admission and treating with anti staph coverage and coverage for Pseudomonas. the patient has a prior history of prostatitis. He had a PSA level done at his doctor's office which was noted to be more than 20. The patient returns to the ER. He complains of -- dysuria with increased frequency of micturition -- no significant change in his mental status, he continues to be intermittently confused. no focal neuro deficits noted. -- hiccups -- no subsequent fever spikes after his initial spike early this morning of 100.4 MD Complaint: dysuria Onset (ago): day(s) ( Two days) Duration: intermittent Quality: burning Relieving factors: none Exacerbating factors: none Associated symptoms: Reports dysuria and fever Related Data Home Medications Medication Instructions Recorded Confirmed famotidine 20 mg PO BID 07/30/21 08/06/23 hydrocodone-acetaminophen 10 - 325 mg PO Q6-8H PRN Pain 07/30/21 08/06/23 losartan 50 mg PO DAILY 07/30/21 08/06/23 nebivolol 10 mg tablet (Bystolic) 5 mg PO DAILY 07/30/21 08/06/23 potassium chloride 10 mEq 10 meq PO DAILY 07/30/21 08/06/23 tablet,extended release allopurinol 300 mg tablet 300 mg PO DAILY 07/05/23 08/06/23 acyclovir 400 mg tablet 400 mg PO BID 08/06/23 08/06/23 budesonide 0.5 mg/2 mL suspension 0.5 mg inhalation DAILY 08/06/23 08/06/23 for nebulization ferrous sulfate 325 mg (65 mg 325 mg PO BID 08/06/23 08/06/23 iron) tablet triamcinolone acetonide 0.5 % 1 applic topical BID 08/06/23 08/06/23 topical cream triamterene 37.5 1 tablet PO DAILY 08/06/23 08/06/23 mg-hydrochlorothiazide 25 mg tablet Allergies Allergy/AdvReac Type Severity Reaction Status Date / Time No Known Allergies Allergy Verified 08/06/23 16:16 Review of Systems Constitutional: Constitutional: Reports as per HPI, Reports no additional constitutional complaints, Reports fever(s) and Reports weakness Eyes: Eyes: Reports as per HPI and Reports no additional eye complaints ENT: Reports system reviewed and no additional complaints, except as documented and Reports as per HPI Cardiovascular: Cardiovascular: Reports as per HPI and Reports no additional cardiovascular complaints Respiratory: Respiratory: Reports as per HPI and Reports no additional respiratory complaints Gastrointestinal: Gastrointestinal: Reports as per HPI and Reports no additional gastrointestinal complaints Genitourinary: Genitourinary: Reports dysuria and Reports urinary frequency Musculoskeletal: Musculoskeletal: Reports no additional musculoskeletal complaints, Reports as per HPI and Reports back pain Integu
--- NOTE | 2023-08-06 16:43 | PC.NURSE ---
pt's pmd, dr Henson called. blood cultures were drawn today in his office. dr henson states he will monitor those test results and follow pt care accordingly. states he will notify hospitalist if preliminary report comes back positive as well.
--- NOTE | 2023-08-06 17:05 | ADMGEN ---
This patient, Michele Valle Jr., was admitted to 2nd Floor Room 206-1. Patient/family oriented to hospital policies and general routines including ID bracelet, bed and alarms, visiting hours, pain management, procedures, bathroom and other care routines, personal items, smoking policy, room service/diet, and visiting hours. Information on how to activate the Rapid Response Team has been discussed. Patient/Family are encouraged to report perceived risks to care and to ask questions if they do not understand what they are told or what they should do.
[2023-08-06 17:35] VITALS: BMI 39.5
[2023-08-06] MEDS: ACYCLOVIR 200 MG CAPSULE 400 MG BY MOUTH (18:09)
[2023-08-06] MEDS: FAMOTIDINE 20 MG TABLET PO (18:09)
[2023-08-06] MEDS: FERROUS SULFATE 325 MG TABLET DR BY MOUTH (18:10)
[2023-08-06] MEDS: CEFEPIME 2 GM/NS 50 ML 2 GM/50 ML BAG IVPB ×2 (18:14→21:35)
[2023-08-06 20:00] VITALS: BP 127/59; PULSE 96; PULSE 97; RESP 20; TEMP 37; O2SAT 95
[2023-08-06] MEDS: VANCOMYCIN 1,500 MG/NS 500 ML 1,500 MG/500 ML BAG 250 MG IVPB (21:34)
[2023-08-06] MEDS: DIPHENOXYLATE/ATROPINE (*CRX) 2.5 MG TABLET 2 TABLET PO (21:36)
[2023-08-06] MEDS: BUDESONIDE RESPULE NEB 0.5 MG/2 ML AMP INHALATION (21:36)
[2023-08-07] VITALS (10 sets, daily range): BP systolic 103–157; BP diastolic 53–75; PULSE 75–100; RESP 16–20; TEMP 36.6–37.3; O2SAT 89–98
--- NOTE | 2023-08-07 02:15 | PC.NURSE ---
Pt's spO2 for pre-breathing treatment completed at 21:35 at 95% RA w/a respiration rate of 20. Lung sounds diminished bilaterally when auscultating the posterior, lower lobes. Pt has chronic, ineffective cough w/no sputum. 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 Teaching on taking a grimm, deeper breathing completed simultaneously.
--- NOTE | 2023-08-07 02:21 | PC.NURSE ---
Post nebulizing treatment; pt's spO2 at 96% RA w/a respiration rate of 19. Lung sounds continue to be diminished w/no significant improvement on aeration. Cough still persistent, cough subdued for 10 minutes then pt proceeded to cough again.
[2023-08-07 05:18] LABS: Basophils Absolute Auto 0.04 K/mm3 (0.00-0.10); Basophils Percent Auto 0.4 % (0.0-1.0); Eosinophils Absolute Auto 0.11 K/mm3 (0.02-0.50); Eosinophils Percent Auto 1.1 % (1.0-6.0); Hematocrit 36.6 % (37.0-46.0); Hemoglobin 11.1 g/dL (12.4-15.3); Immature Granulocyte Absolute 0.04 K/mm3 (0.00-0.00); Immature Granulocyte Percent A 0.4 % (0.0-0.0); Lymphocytes Absolute Auto 0.87 K/mm3 (1.10-4.50); Lymphocytes Percent Auto 8.9 % (18.0-42.0); Mean Corpuscular HGB Conc 30.3 g/dL (32.0-36.0); Mean Corpuscular Hemoglobin 25.7 pg (27.0-31.0); Mean Corpuscular Volume 84.7 fL (78.0-102.0); Mean Platelet Volume 8.5 fl (8.7-11.0); Monocytes Absolute Auto 1.04 K/mm3 (0.10-0.90); Monocytes Percent Auto 10.7 % (2.0-11.0); Neutrophils Absolute Auto 7.6 K/mm3 (1.7-7.2); Neutrophils Percent Auto 78.5 % (50.0-70.0); Platelet Count Result 142 K/mm3 (150-420); Red Blood Count 4.32 M/mm3 (4.70-6.10); White Blood Count 9.7 K/mm3 (4.8-10.8)
[2023-08-07 05:30] LABS: Anion Gap 6 mmol/L (8-16); Blood Urea Nitrogen 21 mg/dL (7-18); Calcium 8.2 mg/dL (8.5-10.1); Carbon Dioxide 33 mmol/L (21-32); Chloride 102 mmol/L (98-108); Estimated CRCL calculation 56 ml/min; Estimated Glomerular Filt Rate 49; Glucose 126 mg/dL (70-99); Osmolality Calculated 297 mOsm/kg (285-295); Potassium 3.3 mmol/L (3.5-5.1); Sodium 141 mmol/L (136-145)
[2023-08-07 05:40] LABS: Magnesium 1.8 mg/dL (1.8-2.4)
[2023-08-07] MEDS: BUDESONIDE RESPULE NEB 0.5 MG/2 ML AMP INHALATION ×2 (06:02→17:30)
[2023-08-07 06:07] LABS: Toxigenic C. Diff NEGATIVE (NEGATIVE)
--- NOTE | 2023-08-07 06:20 | PCRCNOTE ---
RT gave Pulmicort at 0605. Unable to chart on worklist due to Pre/Post not available. Sp02 89%/94%. HR 89/91. BS clear/diminished. Loose, NPC.
[2023-08-07] MEDS: CEFEPIME 2 GM/NS 50 ML 2 GM/50 ML BAG IVPB ×3 (06:34→22:58)
--- NOTE | 2023-08-07 07:43 | PM.IMHP ---
H&P: HPI History of Present Illness Date/Time: 08/07/23 07:43 Chief Complaint: urinary tract infection, altered mental status Narrative: This is a 72-year-old male patient with a history of multiple myeloma status post bone marrow transplant x2 that have failed currently receiving investigational chemotherapy at [facility] who is admitted to the hospital due to urinary tract infection with altered mental status. Patient reports that he had chemotherapy at [facility] on [address] and patient had urinary frequency urgency and incontinence as well as fatigue. The next morning patient was experiencing symptoms worsening so he to the emergency department where he was evaluated and found to have urinalysis consistent with a urinary tract infection. Received IV ceftriaxone x1 and was discharged with a prescription for Augmentin. He then left the ER and went to see his primary care provider who called oncology and oncology recommended the patient be admitted to the hospital for IV antibiotics to cover MRSA and Pseudomonas until cultures are back. Blood cultures were obtained as well as urine culture in process from original ER visit. Patient reports that he was feeling out of it yesterday and his reports that he was nonsensical at times and sometimes had hard time formulating his thoughts. Patient status seemed to improve overnight but he had hard time sleeping. This morning patient is awake and alert only occasionally stumbling on what to say but speaking with clear vocalization. No focal weakness or stroke symptoms. Patient is ambulatory with a steady gait with standby assist to the restroom. He he did have multiple episodes of diarrhea (known side effect of his chemo) that improved after Lomotil. C diff was negative. Patient is eating and drinking well he is no longer incontinent. Patient denies nausea vomiting abdominal pain shortness a breath or any other concerning symptoms. Review of Systems Review of Systems: All systems reviewed & are unremarkable except as noted in HPI and below [facility] Past Medical History Medical History (Updated 08/07/23 @ 14:29 by Cory Torres APRN) Hypertension Multiple myeloma Sinusitis Surgical History Surgical History H/O sinus surgery Previous back surgery Social History Social History Smoking status: Never smoker Alcohol intake: never Substance use: never Do You Feel Safe in your Home?: Yes Lack of Transportation: No Lack of Food: Never True Current Housing: I Have Housing Concerned About Future Housing: No Difficulty Paying Gas/Electric Bills: No Difficulty Paying for Meds: No Currently Unemployed: No Education: Master's Degree or Higher Difficulty w/ Childcare or Family Care: No Spiritual care concerns: No Meds Home Medications and Allergies Home Medications Medication Instructions Recorded Confirmed Type famotidine 20 mg PO BID 07/30/21 08/06/23 History hydrocodone-acetaminophen 10 - 325 mg PO Q6-8H PRN Pain 07/30/21 08/06/23 History losartan 25 mg PO DAILY 07/30/21 08/07/23 History nebivolol 10 mg tablet (Bystolic) 5 mg PO DAILY 07/30/21 08/06/23 History potassium chloride 10 mEq 10 meq PO DAILY 07/30/21 08/06/23 History tablet,extended release allopurinol 300 mg tablet 300 mg PO DAILY 07/05/23 08/06/23 History acyclovir 400 mg tablet 400 mg PO BID 08/06/23 08/06/23 History amoxicillin 875 mg-potassium 1 tablet PO Q12H #14 tabs 08/06/23 08/06/23 Rx clavulanate 125 mg tablet budesonide 0.5 mg/2 mL suspension 0.5 mg inhalation DAILY 08/06/23 08/06/23 History for nebulization ferrous sulfate 325 mg (65 mg 325 mg PO BID 08/06/23 08/06/23 History iron) tablet triamcinolone acetonide 0.5 % 1 applic topical BID 08/06/23 08/06/23 History topical cream triamterene 37.5 1 tablet PO DAILY 08/06/23 08/06/23 History
[2023-08-07] MEDS: ACYCLOVIR 200 MG CAPSULE 400 MG BY MOUTH ×2 (08:42→17:00)
[2023-08-07] MEDS: FAMOTIDINE 20 MG TABLET PO ×2 (08:42→17:01)
[2023-08-07] MEDS: allopurinoL 300 MG TABLET PO (08:42)
[2023-08-07] MEDS: POTASSIUM CHLORIDE 10 MEQ ER TABLET PO (08:42)
[2023-08-07] MEDS: TRIAMTERENE 37.5 MG/HCTZ 25 MG (MAXZIDE) TABLET 0.5 TAB PO (08:43)
[2023-08-07] MEDS: HEPARIN SODIUM 5,000 UNITS/ML VIAL 5000 UNITS SUB-Q (08:43)
[2023-08-07] MEDS: FERROUS SULFATE 325 MG TABLET DR BY MOUTH ×2 (08:43→17:01)
[2023-08-07] MEDS: KCL 20 MEQ/SW 100 ML 100 ML 50 MEQ IVPB (08:45)
[2023-08-07] MEDS: MAGNESIUM SULF 2 GM/WATER 50ML 2 GM/50 ML BAG IVPB (08:45)
[2023-08-07] MEDS: SODIUM CHLORIDE 0.9% IV 250 ML 50 ML IV CONT (08:46)
[2023-08-07] MEDS: POTASSIUM CHLORIDE 20 MEQ ER TABLET 40 MEQ PO (08:53)
--- NOTE | 2023-08-07 11:31 | PC.NURSE ---
Called Jose RESIDENT SERVICES SUPERVISOR to notify him of resulted urine culture from outside provider. No new orders received.
[2023-08-07] MEDS: VANCOMYCIN 1,500 MG/NS 500 ML 1,500 MG/500 ML BAG 250 MG IVPB (17:53)
[2023-08-07] MEDS: ENOXAPARIN 40 MG/0.4 ML SYRINGE SUB-Q (20:06)
[2023-08-07] MEDS: NEBIVOLOL HCL 5 MG TABLET PO (20:06)
--- NOTE | 2023-08-07 20:43 | PC.NURSE ---
Patient in bed resting. Call light and belongings within reach. Patient able to ambulate to/from bathroom. No c/o offered.
[2023-08-08] VITALS: BP 139/80; PULSE 96; RESP 16; TEMP 36.7; O2SAT 97
[2023-08-08 05:53] LABS: Basophils Absolute Auto 0.02 K/mm3 (0.00-0.10); Basophils Percent Auto 0.4 % (0.0-1.0); Eosinophils Absolute Auto 0.19 K/mm3 (0.02-0.50); Eosinophils Percent Auto 3.9 % (1.0-6.0); Hematocrit 35.3 % (37.0-46.0); Hemoglobin 10.5 g/dL (12.4-15.3); Immature Granulocyte Absolute 0.03 K/mm3 (0.00-0.00); Immature Granulocyte Percent A 0.6 % (0.0-0.0); Lymphocytes Absolute Auto 0.37 K/mm3 (1.10-4.50); Lymphocytes Percent Auto 7.5 % (18.0-42.0); Mean Corpuscular HGB Conc 29.7 g/dL (32.0-36.0); Mean Corpuscular Hemoglobin 25.2 pg (27.0-31.0); Mean Corpuscular Volume 84.9 fL (78.0-102.0); Mean Platelet Volume 8.8 fl (8.7-11.0); Monocytes Absolute Auto 0.63 K/mm3 (0.10-0.90); Monocytes Percent Auto 12.8 % (2.0-11.0); Neutrophils Absolute Auto 3.7 K/mm3 (1.7-7.2); Neutrophils Percent Auto 74.8 % (50.0-70.0); Platelet Count Result 137 K/mm3 (150-420); Red Blood Count 4.16 M/mm3 (4.70-6.10); Red Cell Distribution Width 16.8 % (11.6-14.4); White Blood Count 4.9 K/mm3 (4.8-10.8)
[2023-08-08 06:10] LABS: Alanine Aminotransferase 19 U/L (16-63); Albumin Level 2.5 g/dL (3.4-5.0); Alkaline Phosphatase 56 U/L (46-116); Anion Gap 4 mmol/L (8-16); Aspartate Amino Transferase 22 U/L (15-37); Bilirubin,Total 0.5 mg/dL (0.00-1.00); Blood Urea Nitrogen 23 mg/dL (7-18); Carbon Dioxide 32 mmol/L (21-32); Chloride 104 mmol/L (98-108); Estimated CRCL calculation 55 ml/min; Estimated Glomerular Filt Rate 48; Glucose 114 mg/dL (70-99); Magnesium 2.2 mg/dL (1.8-2.4); Osmolality Calculated 294 mOsm/kg (285-295); Potassium 3.8 mmol/L (3.5-5.1); Sodium 140 mmol/L (136-145); Total Protein 5.5 g/dL (6.4-8.2)
[2023-08-08] MEDS: CEFEPIME 2 GM/NS 50 ML 2 GM/50 ML BAG IVPB ×2 (06:34→13:22)
[2023-08-08] MEDS: BUDESONIDE RESPULE NEB 0.5 MG/2 ML AMP INHALATION (06:59)
[2023-08-08 07:01] VITALS: PULSE 73; RESP 18; O2SAT 93
[2023-08-08 07:12] VITALS: PULSE 73; RESP 18; O2SAT 93
[2023-08-08 08:00] VITALS: BP 124/67; PULSE 75; RESP 16; TEMP 36.4; O2SAT 97
[2023-08-08] MEDS: FAMOTIDINE 20 MG TABLET PO (09:17)
[2023-08-08] MEDS: allopurinoL 300 MG TABLET PO (09:17)
[2023-08-08] MEDS: POTASSIUM CHLORIDE 10 MEQ ER TABLET PO (09:17)
[2023-08-08] MEDS: ACYCLOVIR 200 MG CAPSULE 400 MG BY MOUTH (09:17)
[2023-08-08] MEDS: LOSARTAN POTASSIUM 25 MG TABLET PO (09:17)
[2023-08-08] MEDS: DIPHENOXYLATE/ATROPINE (*CRX) 2.5 MG TABLET 1 TABLET PO (09:18)
--- NOTE | 2023-08-08 14:50 | PC.NURSE ---
Discharge instructions reviewed with patient and his . All questions answered. Pt escorted via wheelchair and assisted into private vehicle.
--- NOTE | 2023-08-11 09:43 | PM.DS ---
DS: Admitting Diagnosis Discharge Date 08/08/23 Admitting Diagnosis Urinary tract infection, altered mental status, multiple myeloma, hypertension DS: Discharge Diagnosis Discharge Diagnosis (1) Urinary tract infection: Code(s): N39.0 - Urinary tract infection, site not specified Status: Acute (2) Altered mental status: Code(s): R41.82 - Altered mental status, unspecified Status: Resolved (3) Multiple myeloma: Code(s): C90.00 - Multiple myeloma not having achieved remission Status: Chronic (4) Hypertension: Code(s): I10 - Essential (primary) hypertension Status: Chronic DS: Summary Hospital Course Reason for hospitalization: Urinary tract infection with immunocompromised state and altered mental status Hospital Course: This is a 72-year-old male patient with history of multiple myeloma status post failed bone marrow transplant x2 currently on investigational chemotherapy at [facility]. Patient began experiencing urinary symptoms then lead to confusion and altered LOC. He initially came to the emergency department was treated with Rocephin and sent home. He followed up with primary care who contacted Oncology who wanted the patient admitted to the hospital for IV antibiotics with coverage for Pseudomonas and MRSA pending urine culture. The urine culture obtained at [facility] came back positive for E coli that was quite sensitive. The antibiotic was deescalated to Augmentin with extended treatment duration to encompass 14 total days of coverage due to complex UTI in the setting immunocompromise and prescription was sent to preferred pharmacy. Patient was ready for discharge had returned back to baseline mental status. Vital signs stable. Status at Discharge Cognitive/behavioral status at discharge: Awake alert oriented and pleasant Functional status at discharge: independent ambulation Overall status at discharge: patient is back to baseline Time Spent with Patient Time attestation: Total time spent providing and/or coordinating discharge services: 35 minutes Time spent: Greater than 30 minutes Exam Narrative: GENERAL: Well-appearing, well-nourished, and in no acute distress. HEAD: Normocephalic, atraumatic. ENT:? Mucous membranes moist. CHEST: Clear to auscultation.? No respiratory distress. HEART: Regular rate and rhythm. ? Normal peripheral pulses. ABDOMEN: Soft, nontender, nondistended. EXTREMITIES: Normal range of motion. No peripheral edema. SKIN: Warm dry normal color NEURO: Alert and oriented x3. PSYCH: Normal mood and affect Discharge Plan Discharge Attending physician on discharge: Vicente Parikh Consulting providers: Cory Torres Discharging Clinician: Cory Torres Anticipated Discharge Date/Time: 08/08/23 15:00 Patient Disposition: Home, Self-Care Activity: as tolerated Diet: heart healthy Discharge Instructions: Augmentin twice daily starting tonight Lomotil as needed for diarrhea Follow up with Primary Care Provider and Oncologist. We will continue to monitor blood cultures and call if you need to return or change medications. Patient Instructions: Antibiotic Form, Diphenoxylate/Atropine (By mouth), Urinary Tract Infection in Men (DC), Fall Prevention for Older Adults (DC), Altered Mental Status (GEN) Stand Alone Forms: General Discharge Information, Work/School Release IP Follow-up/Referrals: Jatin Gamble MD [Primary Care Provider] - Follow Up with Primary Dr (Patient will call to make follow up appointment. Dr. Gamble office will not allow the hospital to make appointment. ) Discharge Medications: New diphenoxylate-atropine 2.5-0.025 mg Tablet 1 tablet PO Q2H PRN (Reason: Diarrhea) Qty: 12 0RF Continued allopurinol 300 mg tablet 300 mg PO DAILY triamcinolone acetonide 0.5 % cream 1 applic TOPICAL BID acyclovir 400 mg Tablet 400 mg PO BID
--- NOTE | 2023-08-12 13:02 | PC.NURSE ---
Spoke with for dc call back, doing ok at home, no questions regarding dc instructions
== END 2023-08-08 14:53 | disposition home or self-care (01) | DRG 690 ==
LOC: CHSED 16:34 → CHS2ND 16:54
PROVIDERS: Nurse Practitioner; Admitting Provider Internal Medicine; Emergency Provider Internal Medicine Critical Care Medicine; PCP Internal Medicine; Visit Provider Internal Medicine
DX: N39.0 Urinary tract infection, site not specified (principal); C90.00 Multiple myeloma not having achieved remission; I10 Essential (primary) hypertension; J32.9 Chronic sinusitis, unspecified
CPT/HCPCS: 36415; 70450; 71045; 80048; 80053; 81001; 83605; 83690; 83735; 83880; 84153; 84484; 84550; 85025; 87077; 87086; 87088; 87186; 87493; 87637; 94640; 96365; 96366; 96367; 96368; 96372; 99284; 99285; A9270; G0378; J0692; J0696; J1644; J1650; J3370; J3475; J3480; J7050

== ENCOUNTER 2024-08-10 08:04 | Outpatient (CLI) | payer MEDICARE, SELFPAY ==
[2024-08-10 09:04] LABS: Alanine Aminotransferase 24 U/L (16-63); Albumin Level 3.8 g/dL (3.4-5.0); Alkaline Phosphatase 77 U/L (46-116); Anion Gap 8 mmol/L (4-12); Aspartate Amino Transferase 12 U/L (15-37); Bilirubin,Total 0.7 mg/dL (0.00-1.00); Blood Urea Nitrogen 57 mg/dL (7-18); Carbon Dioxide 31 mmol/L (21-32); Chloride 107 mmol/L (98-108); Estimated Glomerular Filt Rate 24; Glucose 103 mg/dL (70-99); Osmolality Calculated 317 mOsm/kg (285-295); Potassium 4.1 mmol/L (3.5-5.1); Sodium 146 mmol/L (136-145); Total Protein 5.9 g/dL (6.4-8.2)
[2024-08-10 10:31] LABS: Prostate Specific Antigen 8.7 ng/mL (< OR = 4.0)
== END 2024-08-10 08:05 | disposition home or self-care (01) ==
LOC: CHSLAB 08:07
PROVIDERS: PCP Internal Medicine
DX: R97.20 Elevated prostate specific antigen [PSA] (principal); Z12.5 Encounter for screening for malignant neoplasm of prostate
CPT/HCPCS: 36415; 80053; 84153; G0103

== ENCOUNTER 2024-08-20 07:12 | Outpatient (CLI) | payer MEDICARE, SELFPAY ==
--- OUTSIDE RECORDS SUMMARY | 2024-08-20 07:16 | XMS_ITS | Encounter Summary ---
Author Organization [facility] Address [address] [place] [address] Care Team Providers Care Vertical Roll Operator Name Role Phone Jatin Gamble MD Primary Care Provider Hermelindo Butler MD Unavailable Roberto Rojo MD Unavailable [phone] Jatin Gamble MD Unavailable [phone] Garry Dukes MD Unavailable Lyndsey Fagan NP Unavailable [phone] Erlin Servin MD Unavailable [phone] Julian Valdez MD Unavailable [phone] Encounter Details Date Type Department Care Team (Late st Contact Info) Description 11/22/2021 Documentation [facility] Case Management [address] [place] [address] Forrest Epstein, RN Social History Tobacco Use Types Packs/Day Years Used Date Smoking Tobacco: Never Smokeless Tobacco: Never Alcohol Use Standard Drinks/Week Comments No 0 (1 standard drink = 0.6 oz pur e alcohol) Sex and Gender Information Value Date Recorded Sex Assigned at Not on file 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 Gender Identity Not on file Sexual Orientation Not on file documented as of this encounter Plan of Treatment Not on file documented as of this encounter Visit Diagnoses Not on filedocumented in this encounter Additional Health Concerns Infection Onset Date Last Indicated Resolved Time COVID: Suspected 04/02/2022 04/02/2022 04/02/2022 10:20 AM CDT Rhino/Enterovirus 04/02/2022 04/02/2022 04/09/2022 3:05 AM CDT COVID: Suspected 12/16/2023 12/16/2023 12/16/2023 10:59 AM CDT Rhino/Enterovirus 12/16/2023 12/16/2023 12/23/2023 3:05 AM CDT documented as of this encounter Care Teams Vertical Roll Operator Relationship Specialty Start Date End Date Jatin Gamble MD [address] [place] [address] PCP - General 10/07/16 Hermelindo Butler MD [address] [place] [address] Medical Oncologist/Hematologrust Medical Oncology 12/02/17 Roberto Rojo MD [address] [place] [id number] Medical Oncologist/Hematologrust Hematology and Oncology 12/02/17 Jatin Gamble MD [address] [place] [address] Referring Physician Internal Medicine 12/02/17 Garry Dukes MD [address] [place], [place] [id number] Referring Physician Urology 12/02/17 05/27/23 Lyndsey Fagan NP [address] [place], [place] [id number] Nurse Practitioner Medical Oncology 08/03/20 Erlin Servin MD [address] [place] [address] Consulting Physician Otolaryngology 10/04/22 [place] [address] [place] [address] Consulting Physician Urology 05/28/23 documented as of this encounter
--- OUTSIDE RECORDS SUMMARY | 2024-08-20 07:16 | XMS_ITS | Encounter Summary ---
Author Organization [facility] Address [address] [place] [address] Phone Care Team Providers Care Master Fire Control Technician Name Role Phone Jatin Gamble MD Primary Care Provider [phone] Hermelindo Butler MD Unavailable Roberto Rojo MD Unavailable [phone] Jatin Gamble MD Unavailable [phone] Garry Dukes MD Unavailable [phone] Lyndsey Fagan NP Unavailable Erlin Servin MD Unavailable [phone] Julian Valdez MD Unavailable Encounter Details Date Type Department Care Team (Latest Contact Info) Description 10/16/2017 Orders Only [facility] CONVERSION Scanning, Provider Social History Tobacco Use Types Packs/Day Years Used Date Smoking Tobacco: Never Assessed Sex and Gender Information Value Date Recorded Sex Assigned at Not on file 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 Gender Identity Not on file Sexual Orientation Not on file documented as of this encounter Plan of Treatment Not on file documented as of this encounter Procedures Procedure Name Priority Date/Time Associated Diagnosis Comments PULMONARY FUNCTION TEST (PFT) 10/16/2017 9:19 AM CDT documented in this encounter Results * PULMONARY FUNCTION TEST (PFT) (10/16/2017 9:19 AM CDT) Anatomical Region Laterality Modality PFT us Provider Scanning PFT ORDERABLES Final Result documented in this encounter Visit Diagnoses Not on filedocumented in this encounter Additional Health Concerns Infection Onset Date Last Indicated Resolved Time COVID: Suspected 04/02/2022 04/02/2022 04/02/2022 10:20 AM CDT Rhino/Enterovirus 04/02/2022 04/02/2022 04/09/2022 3:05 AM CDT COVID: Suspected 12/16/2023 12/16/2023 12/16/2023 10:59 AM CDT Rhino/Enterovirus 12/16/2023 12/16/2023 12/23/2023 3:05 AM CDT documented as of this encounter Care Teams Master Fire Control Technician Relationship Specialty Start Date End Date Jatin Gamble MD [address] [place] [address] PCP - General 10/07/16 Hermelindo Butler MD [address] [place] [id number] [facility] 12/02/17 Roberto Rojo MD [address] [place] [address] [facility]cology 12/02/17 Jatin Gamble MD [address] [place] [address] Referring Physician Internal Medicine 12/02/17 Garry Dukes MD [address] [place], [place] [id number] Referring Physician Urology 12/02/17 05/27/23 Lyndsey Fagan NP [address] [place] [address] Nurse Practitioner Medical Oncology 08/03/20 Erlin Servin MD [address] [place] [address] Consulting Physician Otolaryngology 10/04/22 [place] [address] [place] [address] Consulting Physician Urology 05/28/23 documented as of this encounter
--- OUTSIDE RECORDS SUMMARY | 2024-08-20 07:16 | XMS_ITS ---
Author Organization [facility] Address [address] [place] [address] Care Team Providers Care Social Service Technician Name Role Phone Jatin Gamble MD Primary Care Provider Hermelindo Butler MD Unavailable Roberto Rojo MD Unavailable [phone] Jatin Gamble MD Unavailable [phone] Lyndsey Fagan NP Unavailable Erlin Servin MD Unavailable [phone] Julian Valdez MD Unavailable Active Problems Patient Care Coordination No te Formatting of this note is d ifferent from the original. BMT Inpatient Care Coordination Overview Diagnosis MM Floor 9800 Treatment Plan Clinical Trial [id number] [facility] Reason for Admission Study chemo C1D1 Transplant/IEC Planning BMT/IEC Plan HLA typing/IDMs Insurance Approvals/Issues Discharge Planning Anticipated Discharge Date 11/01 Patient Education Completed Issue to be Resolved Before Discharge Discharge Disposition Home Requests Sent to Case Management and/or Medical Assistants Post-Discharge Follow-Up Living Situation/Distance from [place], [place] (45 min) Caregiver Self, Lab/Transfusion Frequency 7CAM study labs weekly per VIS/treatment plan Phone: Fax: Venous Access & Care implanted vascular device Local Oncologist Contact Phone: Fax: Post-Discharge Office Visit (H30) [place] 11/06 Lab per study 11/12 Lab per study 11/20 Lab/ROV/RC Miscellaneous Notes: 10/29 C1D1 Tenebio. CRS over night, UA = UTI, UCx NGTD Problem Noted Date Diagnosed Date Iron deficiency anemia 08/05/2023 Obesity, morbid 07/17/2023 Hypogammaglobulinemia 12/25/2022 Chronic pansinusitis 05/22/2022 Assessment & Plan (04/02/2023 10:25 AM CDT): He continues to have problems with sinusitis. Today he has a mild amount of yellow discharge. There are polypoid changes within the ethmoid cavities on both sides in his maxillary ostia appear edematous also. I talked with him and his quite a bit about where to go from here. I would like to treat him with a steroid shot an antibiotic and also Pulmicort rinses again to see if we can reverse a lot of these polypoid changes. We can accomplish that I would probably recommend doing a follow-up CT scan to see if there are any isolated areas of obstruction. If there is these could probably be surgically addressed. He is not sure how much further he wants to go with this because he spends lot of time with doctor's appointments with his multiple myeloma and immunoglobulin deficiency and other things. I think it would be fine for him to take a break from all this if he wishes he indicated he would like to do so. I did encourage him to call if he has any significant problems or if he wanted to pursue my recommendations at a later date. He indicated he would do so. Assessment & Plan (01/19/2023 2:31 PM CDT): Endoscopically his sinuses do look better. There is a slight amount yellow discharge on each side but they are much more open. I wonder if the IVIG injections have been helping. That would make sense I explained. We will continue to watch. I would like to have him continue with the Pulmicort rinses. He did them for a short while. They may have helped. We are going to reorder that. I also would like to have him follow up in about 2 months. Assessment & Plan (12/05/2022 12:40 PM CDT): He still has some infection and there is polypoid changes within the ethmoid sinuses on both sides. A culture was taken on the right side. I am also going to have him start Pulmicort rinses. He is agreeable with that. When he get a culture back I will probably start him on an antibiotic at that time. I would like to see him back in about 6 weeks. Assessment & Plan (10/30/2022 8:16 AM CDT): He still has infection although it does look a little bit better. He does have some early polyp formation. I talked with him about this. I recommended a steroid shot with a course of Levaquin. I also want him to continue with his gentamicin nasal rinses. He is agreeable with that. He is going to follow-up in a month. Assessment & Plan (10/16/2022 8:47 AM CDT): He seems to be doing okay as far as healing is concerned. He still has purulent discharge in the sinus cavities. They are opened up however. I am suggesting that we start him on gentamicin rinse. We have never been able to culture anything so this is empiric therapy. He understands. He would like to go ahead and do that. I would like to have him follow up in 2 weeks. Assessment & Plan (08/20/2022 10:00 PM CDT): He continues to be symptomatic. A CT scan shows severe bilateral pansinusitis. I talked with him quite a bit about this. I think he would benefit from sinus surgery. I discussed the risk of sinus surgery including the risk of recurrent or persistent disease that may require further revision surgery. There is a risk of orbital injury and [employer] injury which could result in blindness or double vision or brain damage. These risks are quite low. Some risk of permanent anosmia. He indicated that he really needs to think about this. I told him there is really not a whole lot more that I can do. He will get back with me if he has any further questions or if he wants to proceed with this. Assessment & Plan (07/09/2022 7:42 PM HEAD OF SALES PROMOTION): I talked with him quite a bit about his persistent sinusitis. I think he really probably would benefit from endoscopic sinus surgery. He is not sure he wants to pursue that just yet. He would like to try another round of antibiotics and asked about maybe trying 500 mg of Ceftin. I think that that is reasonable but if he continues to have no relief I do not have anything further I can offer. I am ordering Ceftin 500 mg twice a day for 3 weeks. He understands that. The plan is for a follow-up in about 4-6 weeks. Assessment & Plan (05/26/2022 4:16 PM HEAD OF SALES PROMOTION): He does have pretty significant sinusitis and I talked with him and his about that. He is only had a Z-Octavio which I told him is not really like that helped much for a sinus infection. It would be helpful for bronchitis I explained. I think that he needs a more aggressive course of antibiotics and I am placing him on Ceftin for 3 weeks along with a steroid pack. I would like to have him follow up in about 6 weeks. If he continues to have problems he may need to consider surgery and I talked to him about that also. Chronic cough 05/22/2022 Assessment & Plan (04/02/2023 10:21 AM CDT): Unchanged. I really did not have any further recommendations. It could be coming from his sinusitis. Assessment & Plan (01/19/2023 2:34 PM CDT): This persists. I really do not have any new recommendations. Assessment & Plan (12/05/2022 12:41 PM CDT): He is already on Protonix twice a day and I recommended that he continue taking that. I do think that sinusitis is probably playing a large role in the cough as well. Assessment & Plan (10/16/2022 8:47 AM CDT): I am suggesting that we treat him presumptively for reflux again he would like to do that also. Protonix twice a day. Assessment & Plan (05/26/2022 4:17 PM HEAD OF SALES [employer]OTION): It is very possible that his cough could be due to sinusitis also. Hopefully that will continue to improve as we treat. He understands. Immunocompromised 11/13/2021 Multiple myeloma not having achieved remission 0 10/28/2021 Cancer Staging:Clinical stage from 10/16/2021:RISS Stage II(Qdtu-2-pcxxnamvepslx (mg/L): 3.7, Albumin (g/dL): 4.2, ISS: Stage II, High-risk cytogenetics: Absent, LDH: Normal) - Signed by Ginger Hooper MD PhD on 07/17/2023 Assessment & Plan (10/29/2021 6:59 AM CDT): History of relapsed/refractory multiple myeloma s/p multiple lines of therapy, 2 ASCTs (Melphalan autologous stem cell transplant 03/2014 and second autologous transplant 11/2017), was on daratumumab, pomalidomide, and dexamethasone for progressive disease, now refractory to treatment. His last dose of of daratumumab was 09/11/21 and his last dose of pomalidomide was 09/19/21. Bone marrow biopsy 10/16 reporting normocellular marrow with trilineage hematopoiesis and rare atypical plasma cells, consistent with low level involvement by previously diagnosed plasma cell neoplasm with flow cytometry showing minute kappa-restricted monotypic plasma cell population. PET scan revealed anatomic progression of bilateral solid renal lesions and numerous stable lytic lesions including multiple ribs, L mandible, and left iliac bone possibly representing sites of treated disease vs. mildly hyper metabolic active myeloma. - Patient indicated that he got a TTE on 10/19 at [place] however unclear why not currently in the system - May need to repeat TTE prior to treatment if results unavailable - Continue OI ppx with acyclovir 400mg BID - Begin trial [id number], a Bispecific Antibody Targeting BCMA treatment - Followed by Dr. Butler - BMT Oncology following; appreciate recommendations Assessment & Plan (10/28/2021 7:26 PM CDT): History of relapsed/refractory multiple myeloma s/p multiple lines of therapy, 2 ASCTs and now progressed on daratumumab and pomalidomide. His last dose of of daratumumab was 09/11/21 and his last dose of pomalidomide was 09/19/21. Bone marrow biopsy 10/16 reporting normocellular marrow with trilineage hematopoiesis and rare atypical plasma cells, consistent with low level involvement by previously diagnosed plasma cell neoplasm with flow cytometry showing minute kappa-restricted monotypic plasma cell population detected by flow cytometry. PET scan revealed anatomic progression of bilateral solid renal lesions and numerous stable lytic lesions including multiple ribs, L mandible, and left iliac bone possibly representing sites of treated disease vs. mildly hyper metabolic active myeloma. - Patient indicated that he got a TTE on 10/19 at [place] however unclear why not currently in the system - May need to repeat TTE prior to treatment if results unavailable - Continue OI ppx with acyclovir 400mg BID - Begin trial [id number], a Bispecific Antibody Targeting BCMA treatment - BMT Oncology following; appreciate recommendations Bilateral lower extremity edema 10/28/2021 Assessment & Plan (10/28/2021 7:39 PM CDT): Has a history of chronic bilateral lower extremity edema influenced by sodium intake. Wears compression stockings daily and is on a diuretic. - Holding home triameterene-hydrochlorothiazide daily (JOHN) - Compression stockings prn Assessment & Plan (10/28/2021 7:23 PM CDT): Has a history of chronic bilateral lower extremity edema influenced by sodium intake. Wears compression stockings daily and is on a diuretic. - Continue home triameterene-hydrochlorothiazide daily - Compression stockings prn JOHN (acute kidney injury) 10/28/2021 Assessment & Plan (10/28/2021 7:38 PM CDT): Presented with elevated creatinine of 1.7 above baseline of ~ 1.2-1.3. Likely secondary to poor PO intake/dehydration. - Will hold diuretic and ARB until creatinine improves back to baseline - IVF Multiple myeloma in relapse 06/13/2021 Cancer Staging:Clinical stage from 07/22/2017:Stage IIIA- Signed by Ginger Hooper MD PhD on 07/17/2023 GERD (gastroesophageal reflux disease) Assessment & Plan (10/28/2021 7:32 PM CDT): - Continue home pepcid BID Assessment & Plan (10/28/2021 7:19 PM CDT): - Continue home pepcid BID Assessment & Plan (05/31/2021 10:51 AM HEAD OF SALES [employer]OMOTION): Continue home pepcid, asx Renal mass 05/30/2021 Assessment & Plan (05/31/2021 10:51 AM HEAD OF SALES PROMOTION): Admitted for observation after L renal mass biopsy. No post-operative complications, remains pain free - monitored overnight, remains asymptomatic -Hgb stable ~13, no hematuria -discharge today-has Urology & Med-Onc follow up planned -post biopsy restrictions reviewed with the patient. 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 Expected pancytopenia secondary to chemotherapy--Transfuse per BMT protocol --HTN Stopped dilt 11/17 and continue losartan Continue diltiazem, losartan--on hold due to hypotension from sepsis 11/12 Resumed diltiazem and losartan 11/14 Hold HCTZ Lasix PRN --Chronic back pain prn oxy ---on hold 07/11 confusion--resumed now that confusion resolved --Acute confusion New onset, unknown etiology, steroids vs. 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,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 11/20-passing clots, bleeding around cath, will flush q4h, if no improvement, will likely need CBI 11/20-repeat BK virus pending --Platelet transfusion reaction with itching Workup sent 11/18--neg Premed with benadryl and tylenol prior to transfusions --JOHN Likely 2/2 urosepsis IVF, renal dose medications Resolved --Edema in left arm Pt stated left arm often gets edematous, chronic LUE doppler neg Resolving --Tachycardia Likely 2/2 urosepsis Added telemetry (11/12-11/14 ) See above for infection work up Resolved Assessment & Plan (11/22/2017 12:28 PM CDT): Admits for melphalan auto Day 0: 11/12/17-->delayed to 11/13/17 due to likely urosepsis oi ppx: acyclovir gi ppx: famotidine Neupogen to start day +7 until count recovery. Expected pancytopenia secondary to chemotherapy--Transfuse per BMT protocol --HTN Stopped dilt 11/17 and continue losartan Continue diltiazem, losartan--on hold due to hypotension from sepsis 11/12 Resumed diltiazem and losartan 11/14 Hold HCTZ Lasix PRN --Chronic back pain prn oxy ---on hold 2/2 confusion--resumed now that confusion resolved --Acute confusion New onset, unknown etiology, steroids vs. 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,000 copies 11/20-passing clots, bleeding around cath, will flush q4h, if no improvement, will likely need CBI 11/20-repeat BK virus pending --Platelet transfusion reaction with itching Workup sent 11/18--neg Premed with benadryl and tylenol prior to transfusions --JOHN Likely 2/2 urosepsis IVF, renal dose medications Resolved --Edema in left arm Pt stated left arm often gets edematous, chronic LUE doppler neg Resolving --Tachycardia Likely 2/2 urosepsis Added telemetry (11/12-11/14 ) See above for infection work up Resolved Hypertension 11/15/2013 Assessment & Plan (10/28/2021 7:39 PM CDT): On home triamterene-HCTZ daily, losartan 50mg daily, bystolic and clonidine prn (has not needed to use clonidine recently) - Continue bystolic and clonidine prn - Holding triamterene-HCTZ daily and losartan due to JOHN - Is on daily potassium supplementation Assessment & Plan (10/28/2021 7:30 PM CDT): - Continue triamterene-HCTZ daily, losartan 50mg daily, bystolic and clonidine prn (has not needed to use clonidine recently) - Is on daily potassium supplementation Assessment & Plan (05/31/2021 10:51 AM HEAD OF SALES PROMOTION): Stable on home losartan, nebivolol, triamterene-HCTZ 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/23/2013 Current Treatment and Therapy Plans - INPT/OUTPT - [facility] - MM - [id number] - Arm B - Dose Expansion Phase - TNB-383B Monotherapy* Plan Start Date:10/29/2021 Plan Provider:Hermelindo Butler MD Linked Problems Multiple myeloma in relapse (HCC) Treatment Medications Current Day (Day 1 , Cycle 47 - Planned for 08/24/2024) Next Day (Day 1, Cycle 48 - Planned for 09/14/2024) INV-[facility] (/TNB-383B.0001) Etentamig (TNB-383B/ABBV-383) IVPB in 50 mL (ANTI-LAG-3)INV-[facility] Etentamig (TNB-383B/ABBV-383) (/TNB-383B.0001)INV -[facility] sodium chloride 0.9 % INV-[facility] Etentamig (TNB-383B/ABBV-383) (/TNB-383B.0001) 40 mg, IV stabilizer solution for Etentamig (TNB-383B/ABBV-383) (IVSS) 20 mL in sodium chloride 0.9% 210 mL IVPBINV-[facility] sodium chloride 0.9 % flush IVPB 20 mL INV-[facility] Etentamig (TNB-383B/ABBV-383) (IVSS-FREE FORMULATION) (TNB-383B.2024) 40 mg in sodium chloride 0.9% 30 mL IVPBINV-[facility] sodium chloride 0.9 % flush IVPB 20 mL Alteplase (CATHFLO ACTIVASE) - orders for occluded catheters* Plan Start Date: 08/28/2021 Plan Provider:Harriett Juarez MD PhD Linked Problems Multiple myeloma, remission status unspecified (HCC)HypoglobulinemiaMultiple myeloma in relapse (HCC) Treatment Medications No medications scheduled. Hydration Therapy Plan* Plan Start Date:06/29/2019 Plan Provider:Hermelindo Butler MD Linked Problems Multiple myeloma, remission status unspecified (HCC) Treatment Medications No medications scheduled. Immune Globulin (GAMUNEX) - 10% (TORRES PREFERRED)* Plan Start Date:01/03/2023 Plan Provider:Hermelindo Butler MD Linked Problems HypogammaglobulinemiaMultipl e myeloma not having achieved remission (HCC) Treatment Medications No medications scheduled. iron dextran (INFED) infusion* Plan Start Date:08/29/2023 Plan Provider:Hermelindo Butler MD Linked Problems Other iron deficiency anemia Multiple myeloma not having achieved remission (HCC) Treatment Medications No medications scheduled. IV MAINTENANCE THERAPY PLAN* Plan Start Date:10/16/2021 Plan Provider:Мария Doll MD PhD Linked Problems Multiple myeloma in relapse (HCC) Treatment Medications No medications scheduled. Past Treatment and Therapy Plans BMT/ONC IP BLOOD PRODUCTS Plan Name Start Date Discontinue Date Treatment Medications Discontinue Reason Plan Provider BMT - ADULT BLOOD AND PLATELET ADMINISTRATION FOR INPATIENT 11/17/2017 03/03/2018 No medications scheduled. Patient Discharged Hermelindo Mtz MD Blood Products Plan Name Start Date Discontinue Date Treatment Medications Discontinue Reason Plan Provider ADULT PLATELET TRANSFUSION FOR OUTPATIENT 11/24/2017 12/25/2022 No medications scheduled. Therapy Complete Hermelindo Mtz MD Oncology Chemotherapy Treatment Plan Name Start Date Discontinue Date Treatment Medications Discontinue Reason Plan Provider Cycles Daratumumab SUBCUTANEOUS / Pomalidomide / Dexamethasone - 28 Day Cycles - Myeloma 2 10/01/2021 daratumumab-f ihj (DARZALEX FASPRO) (DARZALEX FASPRO)daratu mumab-fij (DARZALEZ FASPRO) (DARZELEX FASPRO)pomali domide (POMALYST) Progressive Disease Hermelindo Ambrocio MD 4 of 12 cycles started Daratumumab (STANDARD DOSE) 28 Day Cycles - Myeloma 8 07/25/2020 daratumumab (DARZALEX) IVPB Patient Preference Hermelindo Ambrocio MD 33 of 40 cycles started INPT - Melphalan - BMT 11/10/2017 02/17/2018 melphalan (EVOMELA) IVPB in 250 mL Therapy Complete Hermelindo Ambrocio MD 1 of 1 cycle completed Oncology Supportive Care Plan Name Start Date Discontinue Date Treatment Medications Discontinue Reason Plan Provider IMMUNE GLOBULIN (GAMUNEX-C/ANILA MAKED) OR (GAMMAGARD) 10% 04/14/2018 10/05/2019 No medications scheduled. Provider Discretion Hermelindo Lee MD Oncology Treatment (2) Plan Name Start Date Discontinue Date Treatment Medications Discontinue Reason Plan Provider Cycles Daratumumab SUBCUTANEOUS Monotherapy 28 Day Cycles - Myeloma 8 06/19/2021 daratumumab-fi hj (DARZALEX FASPRO) (DARZALEX FASPRO)daratum umab-fihj (DARZALEZ FASPRO) (DARZELEX FASPRO) Therapy Complete Hermelindo Mcgee MD 19 of 21 cycles started Specialty Infusion Treatment 2 Plan Name Start Date Discontinue Date Treatment Medications Discontinue Reason Plan Provider Alteplase (CATHFLO ACTIVASE) - orders for occluded catheters 11/14/2020 12/25/2022 No medications scheduled. Therapy Complete Sangita Harvey MD Lifetime Dose Tracking * Chemical Lifetime Dose Automatic Entry Manual Entr y Fluoro Time 0.1 minutes 0.1 minutes 0 minutes Air kerma at the reference point (Ka,r) 15 mGy 1 5 mGy 0 mGy DLP 2,467 mGycm 2,467 mGycm 0 mGycm Resolved Problems Problem Noted Date Diagnosed Date Resolved Date Transfusion reaction 11/23/2017 020 Assessment & Plan (11/23/2017 10:34 AM CDT): With platelets suspected, itching and SOB at end of transfusion, he was pretreated with IV Benadryl/Tylenol - Give Hydrocortisone, send transfusion reaction labs - Check CXR and give Lasix for suspected FOL, has peripheral edema
--- OUTSIDE RECORDS SUMMARY | 2024-08-20 07:16 | XMS_ITS | Continuity of Care Document ---
Author Organization [facility] Address [address] [facility] [address] [place] [address] Phone Care Team Providers Care It Program Engagement Director Name Role Phone Cesar Vora MD, FACS [...] ER 100 mg tablet,extended release - Active [place] 5 mg-325 mg tablet take 1 tablet [...] Copied on Encounter Office/outpa tient Visit, [facility], [address] [place] [address] [employer] [address], [place], [place], [id number], [place] tel:[phone] SEC [place] Eyelid infections (chief complaint) Episcleritis of left eyeOther vitreous opacities, bilateralOth er visual disturbances 2 Vielka Cesar. [address] [employer] [facility], [address], [place], [place], [address], [place]. tel:[phone] Specialist: Hermelindo Lopez MD, [address] [facility] [address], [place], [address]. tel:[phone] Provider: Vicky Ray OD, [address] [facility], [facility], [place], [address]. tel:[phone] [facility], [address], [place], [place], [address], [place] tel:[phone] SEC [place] Professional yag pc OS evaluation (chief complaint) Bilateral artificial lens implantOther secondary cataract, left eyeCyst of right eyelidPVD (posterior vitreous detachment), left eyeBilateral ocular hypertension Oct-1 8 Jose R Franco. [address] [facility], [address], [place], [place], [address], [place]. tel:[phone] Referring Provider: Michele Orellana OD A, [address] [place] [address] [facility] [place], [place], [address]. tel:[phone] [facility], [address] [place], [place] [address], [place], [place], [address], [place] tel:[phone] SEC Steven Sifuentes Yag PC Eval (chief complaint) No Information 7 [place] Cesar. [address] [place], [place] [address], [address], [place], [place], [address], [place]. tel:[phone] Referring Provider: Michele Orellana OD A, [address] [place] [address], [place], [address]. tel:[phone] [employer] [facility], [address] [employer] [address], [place], [place], [address], [place] tel:[phone] SEC [place] Coybienvenidorosalio No Information 7 Vielka Cesar. [facility] [employer], [address], [place], [place], [address], [place]. tel:[phone] [employer] [facility], [facility] [employer] [address], [place], [place], [address], [place] tel:[phone] [facility] No Information 5 Vielka Cesar. [facility] [employer], [address], [place], [place], [address], [place]. tel:[phone] Referring Provider: Michele Orellana OD A, [address] [place] [address], [place], [address]. tel:[phone] [employer] [facility], [address] [place] [address] [address], [place], [place], [address], [place] tel:[phone] SEC Steven N Bear No Information 5 Vielka Guerrero. [address] [employer] [facility], [address], [place], [place], [address], [place]. tel:[phone] Referring Provider: Michele Acevedo, [address] [facility], [facility] [place], [place], [address]. tel:[phone] [facility], [address] [place] [address] [address], [place], [place], [address], [place] tel:[phone] [facility] No Information 5 Vielka Guerrero. [facility] [place] [employer] [facility], [address], [place], [place], [address], [place]. tel:[phone] Referring Provider: Michele Acevedo, [address] [facility], [place], [address]. tel:[phone] [facility], [address] [place] [address] [address], [place], [place], [address], [place] tel:[phone] SEC Steven N Bear Cataract Evaluation (chief complaint) No Information 5 Vielka Guerrero. [address] [place] [address] [employer] [facility], [address], [place], [place], [address], [place]. tel:[phone] Referring Provider: Michele Acevedo, [address] [place], [address]. tel:[phone] Family History Family Member Type Diagnosis Age At Onset Mother Problem (finding) diabetes melli tus in first degree relative Mother Problem (finding) glaucoma Payers Payer name Insurance type Covered constitution party ID Authoriza tion(s) [place] [id number] [employer] Mdcr Supp CI [id number] Social History Type Description Quantity Date Captured [...]
--- OUTSIDE RECORDS SUMMARY | 2024-08-20 07:16 | XMS_ITS | Clinical Summary ---
Author Organization [facility] Address [address] [place] [address] Care Team Providers Care Rescue Instructor Name Role Phone Unavailable Primary Care Provider Unavailabl e Social History Tobacco Use Types Packs/Day Years Used Date Smoking Tobacco: Never Assessed Sex and Gender Information Value Date Recorded Sex Assigned at Not on file Legal Sex Male 10:44 PM CDT Gender Identity Not on file Sexual Orientation Not on file Plan of Treatment Health Maintenance Due Date Last Done Comments Colorectal Cancer Screening Colonoscopy (10 Years) 1950 Hepatitis C 1970 DTaP, Tdap and Td Vaccines ( 1 - Tdap) 12/12/1971 Zoster Vaccines (1 of 2) 2002 Pneumococcal Vaccine: 65+ Ye ars (1 of 1 - PCV) 2017 COVID-19 Vaccine ( - 2023-2 5 season) 2024 Influenza Adult (#1) 2024 RSV Immunization or 60+ Years (1 - 1-dose 75+ series) 12/12/2027 Meningococcal B Vaccine Aged Out No l onger eligible based on patient's age to complete this topic Meningococcal Vaccine Aged Out No edgard karime eligible based on patient's age to complete this topic RSV Immunizations Under 20 Months Aged Out No longer eligible based on patient's age to complete this topic
--- OUTSIDE RECORDS SUMMARY | 2024-08-20 07:17 | XMS_ITS | Clinical Summary ---
Author Organization [facility] Address [address] [place] [address] Care Team Providers Care Manager Integrated Name Role Phone Jatin Gamble MD Primary Care Provider Hermelindo Butler MD Unavailable Roberto Rojo MD Unavailable [phone] Jatin Gamble MD Unavailable [phone] Lyndsey Fagan NP Unavailable Erlin Servin MD Unavailable Julian Valdez MD Unavailable Allergies Active Allergy Reactions Criticality Noted Date Comments Immune Globulin(Hum),Capr( Igg) Hives,Flushing (skin) Medium 01/03/2023 See significant event note 01/03/23 Medications potassium chloride ER (KLOR-CON) 10 mEq CR tabletIndication s:hypokalemia prevention Take 1 tablet/capsule (10 mEq total) by mouth daily Takes with food 4 Active TRIAMTERENE-HYDR OCHLOROTHIAZIDE 37.5-25 mg per tabletIndication s:hypertension 1 tablet/capsule One tablet daily alternating with 1/2 tablet daily 9 Active HYDROcodone-acet aminophen (NORCO) 10-325 mg per tabletIndication s:Pain Take 0.5 tablets by mouth every 8 (eight) hours as needed for pain 120 tablet 1 Active losartan (COZAAR) 50 mg tablet Take 1 tablet (50 mg total) by mouth daily 2 Active triamcinolone (KENALOG) 0.5 % cream Apply topically 2 (two) times a day 15 g 3 Active famotidine (PEPCID) 20 mg tablet Take 1 tablet (20 mg total) by mouth 2 (two) times a day Active nebivoloL (BYSTOLIC) 5 mg tablet 3 Active budesonide (Pulmicort) 0.5 mg/2 mL nebulizer solutionIndicati ons:Chronic pansinusitis Mix one respule with 10 ml of normal saline for the right nostril and also with the left nostril using a bulb syringe 84 mL 3 Active sodium chloride 0.9% 0.9 % irrigationIndica tions:Chronic pansinusitis Use as directed with Pulmicort 1000 mL 3 Active allopurinoL (ZYLOPRIM) 100 mg tablet Take 1 tablet (100 mg total) by mouth daily 30 tablet 6 4 Active clobetasoL (TEMOVATE) 0.05 % creamIndications :Multiple myeloma in remission (HCC) Apply topically 2 (two) times a day 60 g 3 5 025 Active acyclovir (ZOVIRAX) 400 mg tabletIndication s:Multiple myeloma, remission status unspecified (HCC) Take 1 tablet (400 mg total) by mouth 2 (two) times a day 60 tablet 11 5 026 Active cefpodoxime (VANTIN) 200 mg tabletIndication s:Multiple myeloma in remission (HCC) Take 1 tablet (200 mg total) by mouth 2 (two) times a day for 7 days 14 tablet 5 025 Active Problems Patient Care Coordination No te Formatting of this note is d ifferent from the original. BMT Inpatient Care Coordination Overview Diagnosis MM Floor 9800 Treatment Plan Clinical Trial [id number] Tenebio Reason for Admission Study chemo C1D1 Transplant/IEC Planning BMT/IEC Plan HLA typing/IDMs Insurance Approvals/Issues Discharge Planning Anticipated Discharge Date 11/01 Patient Education Completed Issue to be Resolved Before Discharge Discharge Disposition Home Requests Sent to Case Management and/or Medical Assistants Post-Discharge Follow-Up Living Situation/Distance from [place], [place] (45 min) Caregiver Self, Lab/Transfusion Frequency 7CAM study labs weekly per VIS/treatment plan Phone: Fax: Venous Access & Care implanted vascular device Local Oncologist Contact Phone: Fax: Post-Discharge Office Visit (H30) KSG 11/06 Lab per study 11/12 Lab per [...] is a risk of orbital injury and NURSE GYNECOLOGY injury which could result in blindness or [...] this. Assessment & Plan (07/09/2022 7:42 PM COIN TELLER): I talked with him quite a bit [...] weeks. Assessment & Plan (05/26/2022 4:16 PM COIN TELLER): He does have pretty significant sinusitis and [...] day. Assessment & Plan (05/26/2022 4:17 PM COIN TELLER): It is very possible that his cough could be due to sinusitis also. Hopefully that will continue to improve as we treat. He understands. Immunocompromised 11/13/2021 Multiple myeloma not having achieved remission 0 10/28/2021 Cancer Staging:Clinical stage from 10/16/2021:RISS Stage II(Pmcy-0-unnnbkdwekvup (mg/L): 3.7, Albumin (g/dL): 4.2, ISS: Stage [...] he got a TTE on 10/19 at [place] however unclear why not currently in the system - May need to repeat TTE prior to treatment if results unavailable - Continue OI ppx with acyclovir 400mg BID - Begin trial [id number], a Bispecific Antibody Targeting BCMA treatment - [...] he got a TTE on 10/19 at [place] however unclear why not currently in the system - May need to repeat TTE prior to treatment if results unavailable - Continue OI ppx with acyclovir 400mg BID - Begin trial [id number], a Bispecific Antibody Targeting BCMA treatment - [...] BID Assessment & Plan (05/31/2021 10:51 AM COIN TELLER): Continue home pepcid, asx Renal mass 05/30/2021 Assessment & Plan (05/31/2021 10:51 AM COIN TELLER): Admitted for observation after L renal mass [...] 07/17/2023 Assessment & Plan (05/31/2021 10:52 AM COIN TELLER): Follows with oncology on daratumumab monotherapy -counts [...] blood in urine Follow up pathology from evnvxufwv-liq-wfuteviy high-grade papillary urothelial carcinoma (grade 2) --follow [...] blood in urine Follow up pathology from ybovxbbbi-dox-opjabekm high-grade papillary urothelial carcinoma (grade 2) --follow [...] supplementation Assessment & Plan (05/31/2021 10:51 AM COIN TELLER): Stable on home losartan, nebivolol, triamterene-HCTZ 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/23/2013 Resolved Problems Problem Noted Date Diagnosed Date Resolved Date Transfusion reaction 11/23/2017 020 Assessment & Plan (11/23/2017 10:34 AM CDT): With platelets suspected, itching and SOB at end of transfusion, he was pretreated with IV Benadryl/Tylenol - Give Hydrocortisone, send transfusion reaction labs - Check CXR and give Lasix for suspected FOL, has peripheral edema Encounters Date Type Department Care Team Description 08/10/2024 Orders Only [facility] Scanning, Provider 08/06/2024 1:45 PM COIN TELLER Clinical Support [facility] - Lab Collection [facility] [address] [place] [address] 08/06/2024 1:00 PM COIN TELLER - 08/06/2024 11:59 PM COIN TELLER Hospital Encounter [facility] Radiology [address] [place] [address] Multiple myeloma, remission status unspecified (HCC) Discharge Disposition: Discharge to home or self care 08/06/2024 8:00 AM COIN TELLER Infusion [facility] - Infusion [address] [facility] [address] [place] [address] Multiple myeloma not having achieved remission (HCC) (Primary Dx); Hypogammaglobulinem ia 08/06/2024 7:15 AM COIN TELLER Clinical Support [facility] - Lab Collection [address] [facility] [address] [place] [address] Multiple myeloma in relapse (HCC) (Primary Dx); Multiple myeloma, remission status unspecified (HCC); JOHN (acute kidney injury) 08/06/2024 Telephone [facility] Bone Marrow Transplant [facility] Floor [address] [place] [address] Lyndsey Fagan NP 08/06/2024 Orders Only [facility] Bone Marrow Transplant [address] [place] [phone] Lyndsey Fagan NP Multiple myeloma, remission status unspecified (HCC) (Primary Dx) 08/06/2024 Orders Only [facility] Bone Marrow Transplant [address] [place] [phone] Lyndsey Fagan NP JOHN (acute kidney injury) (Primary Dx) 08/06/2024 Orders Only [facility] Bone Marrow Transplant [address] [place] [phone] Hermelindo Hill MD Multiple myeloma, remission status unspecified (HCC) (Primary Dx) 08/03/2024 9:30 AM COIN TELLER Infusion [facility] - Infusion [address] [place] [id number] Multiple myeloma in relapse (HCC) (Primary Dx); Multiple myeloma in remission (HCC) 08/03/2024 8:30 AM COIN TELLER Office Visit [facility] Bone Marrow Transplant [address] [place] [phone] Hermelindo Hill MD Multiple myeloma, remission status unspecified (HCC) (Primary Dx); Multiple myeloma in remission (HCC); Multiple myeloma in relapse (HCC) 08/03/2024 7:30 AM COIN TELLER Clinical Support [facility] - Lab Collection [address] [place] [address] Multiple myeloma in remission (HCC); Multiple myeloma, remission status unspecified (HCC); Multiple myeloma in relapse (HCC) 08/03/2024 Orders Only [facility] Bone Marrow Transplant [address] [place] [phone] Hermelindo Hill MD 08/03/2024 Orders Only [facility] Bone Marrow Transplant [address] [place] [phone] Hermelindo Hill MD 08/03/2024 Orders Only [facility] Bone Marrow Transplant [address] [place] [phone] Hermelindo Hill MD 08/02/2024 Telephone [facility] Bone Marrow Transplant [address] [place] [phone] Lyndsey Fagan NP 07/30/2024 Telephone [facility] Bone Marrow Transplant [address] [place] [phone] Hermelindo Hill MD 07/27/2024 Telephone [facility] Bone Marrow Transplant [address] [place] [phone] Hermelindo Hill MD 07/26/2024 Orders Only [facility] Bone Marrow Transplant [address] [place] [phone] Hermelindo Hill MD 07/26/2024 Orders Only [facility] Bone Marrow Transplant [address] [place] [phone] Hermelindo Hill MD 07/26/2024 Telephone [facility] Bone Marrow Transplant [address] [place] [phone] Margaret Kay RMA Medical Question/Miscellane ous 07/13/2024 10:00 AM COIN TELLER Infusion [facility] - Infusion [address] [place] [address] [address] [place] [address] Multiple myeloma in relapse (HCC) (Primary Dx); Multiple myeloma in remission (HCC) 07/13/2024 9:00 AM COIN TELLER Office Visit [facility] Bone Marrow Transplant [address] [place] [phone] Hermelindo Hill MD Multiple myeloma, remission status unspecified (HCC) (Primary Dx); Multiple myeloma in remission (HCC); Hypogammaglobulinem ia 07/13/2024 8:00 AM COIN TELLER Clinical Support [facility] - Lab Collection [facility] [address] [address] Multiple myeloma in remission (HCC); Multiple myeloma in relapse (HCC); Multiple myeloma, remission status unspecified (HCC) 07/13/2024 Telephone [facility] Bone Marrow Transplant [address] [place] [phone] Fadumo Tobar RN 06/22/2024 8:30 AM COIN TELLER Infusion [facility] - Infusion [address] [place] [address] Multiple myeloma, remission status unspecified (HCC) (Primary Dx); Multiple myeloma in remission (HCC); Multiple myeloma in relapse (HCC) 06/22/2024 8:00 AM COIN TELLER Office Visit [facility] Bone Marrow Transplant [address] [place] [phone] Hermelindo Hill MD Multiple myeloma in relapse (HCC) (Primary Dx); Multiple myeloma, remission status unspecified (HCC); Hypogammaglobulinem ia; Obesity, morbid (HCC) 06/22/2024 7:00 AM COIN TELLER Clinical Support [facility] - Lab Collection [address] [place] [address] Multiple myeloma, remission status unspecified (HCC); Multiple myeloma in relapse (HCC) 06/22/2024 Orders Only [facility] Bone Marrow Transplant [address] [place] [phone] Hermelindo Hill MD 06/22/2024 Orders Only [facility] Bone Marrow Transplant [address] [place] [phone] Hermelindo Hill MD Multiple myeloma in remission (HCC) (Primary Dx); Multiple myeloma in relapse (HCC) 06/14/2024 Telephone [facility] Bone Marrow Transplant [address] [place] [phone] Margaret Kay RMA Reschedule from Last 3 Months Immunizations Immunization Administration Dates Next Due Influenza, Quadrivalent, Mena l Culture-based MDCK, Antibiotic Free, Intramuscular 03/08/2023 Influenza, Quadrivalent, Mena l Culture-based MDCK, Preservative Free, Antibiotic Free, Intramuscular 03/07/2024,02/26/2020 Influenza, Quadrivalent, Spl it, Preservative Free, Intramuscular 02/25/2021,02/28/2020,02/28/2019,02/20 Influenza, Trivalent, IM (MDV) 04/16/2015,2012 Influenza, Unspecified 03/08/2023,03/03/2018 Moderna SARS-CoV-2 Monovalen t Vaccination (12+ YRS) 06/13/2021,07/05/2020,06/07/2020 Pneumococcal Conjugate PCV 13 04/16/2015 Pneumococcal Polysaccharide PPV23 04/15/2021 RSV, Bivalent, Protein Subun it Rsvpref, Diluent (Abrysvo) 01/31/2024 Tdap 06/21/2023,12/09/2011 ZOSTER Recombinant 08/15/2018,05/30/2018, 018 Surgical History Surgery Date Site/Laterality Comments TUNNELED LINE PLACEMENT <5 YEARS 03/14/2014 N/A CENTRAL LINE PLACEMENT > 5 YEARS 10/29/2013 N/A CENTRAL LINE PLACEMENT > 5 YEARS 11/10/2017 N/A BACK SURGERY L4 L5 PORTACATH PLACEMENT 06/09/2017 - 06/08/2018 Right right upper chest port a cath CYSTOSCOPY with bladder bx x 2 yrs ago states pre cancerous lesions COLONOSCOPY approx 10 yrs ago CONTRAST INJECTION EVALUATION CENTRAL VENOUS ACCESS DEVICE 09/08/2023 N/A Medical History Medical History Date Comments Hypertension Multiple myeloma (HCC) GERD (gastroesophageal reflux disease) Sinusitis Lesion of bladder pre cancerous has office cystoscopy for f/u History of radiation therapy 2013 Personal history of chemotherapy has chemo every 21 days at [place] last tx 09/24/22 Cough patient states D r Gareth aware of productive sputum green to white to yellow states Family History Medical History Relation Name Comments Cancer Brother Cancer Father Diabetes Mother Hypertension Mother Cancer Sister Relation Name Status Comments Brother Father Mother Sister Social History Tobacco Use Types Packs/Day Years Used Date Smoking Tobacco: Never Smokeless Tobacco: Never Alcohol Use Standard Drinks/Week Comments No 0 (1 standard drink = 0.6 oz pur e alcohol) AUDIT-C Answer Date Recorded Q1: How often do you have a drink containing alcohol? Never 06/24/2023 Q2: How many drinks containi ng alcohol do you have on a typical day when you are drinking? Patient does not drink Q3: How often do you have si x or more drinks on one occasion? Never 06/24/2023 Personal Safety Answer Date Recorded Have you ever been in or are you currently in a harmful physical or emotional relationship or is someone making you feel afraid or unsafe? Denies 09/08/2023 Sex and Gender Information Value Date Recorded Sex Assigned at Not on file Legal Sex 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 COIN TELLER Gender Identity Not on file Sexual Orientation Not on file Obstetrics History Last Filed Vital Signs Vital Sign Reading Time Taken Comments Blood Pressure 157/83 08/06/2024 8:02 AM COIN TELLER Pulse 63 08/06/2024 8:02 AM COIN TELLER Temperature 37 C (98.6 F) 08/06/2024 8:02 AM COIN TELLER Respiratory Rate 18 08/06/2024 8:02 AM COIN TELLER Oxygen Saturation 99% 08/06/2024 8:02 AM COIN TELLER Inhaled Oxygen Concentration - - Weight 127.4 kg (280 lb 13.9 oz) 08/06/2024 8:02 AM COIN TELLER Height 175.3 cm (5' 9 ) 05/18/2024 8:28 AM COIN TELLER Body Mass Index 41.48 05/18/2024 8:28 AM COIN TELLER Plan of Treatment Health Maintenance Due Date Last Done Comments Colon Cancer Screening-Colonoscopy 1950 Depression Screening 1950 Hepatitis B Screening 1970 Well Visit 65+ 2017 Covid-19 Vaccine (4 - 2023-2 5 season) 2024 06/13/2021, 07/05/2020, 06/07/2020 Fall Risk Assessment 09/07/2024 09/08/2023 DTaP/Tdap/Td Vaccine (3 - Td or Tdap) 06/21/2033 06/21/2023, 12/09/2011 Zoster Vaccine Completed 08/15/2018, 05/10, 02/28/2018 Pneumococcal vaccine 65+ Completed 04/15/2021, 01/2015 Hepatitis C Screening Completed 10/16/2021 Influenza Vaccine Completed 03/07/2024, , 03/08/2023, Additional history exists Prostate Cancer Screening-PSA Discontinued , 09/23/2023, 09/02/2023, Additional history exists Medical Devices Implanted Type Area Oval Or Circular Glass Cutter Device Identifier Shelf Expiration Date Model / Serial / Lot Other - See Comments Other - see comments Right: Chest Wall Description:Upon arrival to IR, not accessed Procedures Procedure Name Priority Date/Time Associated Diagnosis Comments SCAN - LABS 08/10/2024 KIDNEY COMPLETE Schedule Routine, Read Routine (OP Routine) 08/06/2024 2:42 PM COIN TELLER Multiple myeloma, remission status unspecified (HCC) URINALYSIS, MICROSCOPIC ONLY Routine 08/06/2024 9:19 AM COIN TELLER JOHN (acute kidney injury) PROTEIN / CREATININE RATIO, URINE, RANDOM Routine 08/06/2024 9:19 AM COIN TELLER JOHN (acute kidney injury) URINALYSIS AND REFLEX TO MICROSCOPIC Routine 08/06/2024 9:19 AM COIN TELLER JOHN (acute kidney injury) EGFR Routine 08/06/2024 7:43 AM COIN TELLER Multiple myeloma, remission status unspecified (HCC) DIFFERENTIAL AUTO Routine 08/06/2024 7:4 3 AM COIN TELLER Multiple myeloma, remission status unspecified (HCC) LACTATE DEHYDROGENASE Routine 08/06/2024 7:43 AM COIN TELLER Multiple myeloma, remission status unspecified (HCC) CBC WITH AUTO DIFFERENTIAL Routine 08/06/2024 7:43 AM COIN TELLER Multiple myeloma, remission status unspecified (HCC) COMPREHENSIVE METABOLIC PANEL Routine 08/06/2024 7:43 AM COIN TELLER Multiple myeloma, remission status unspecified (HCC) LIPID PANEL Routine 08/06/2024 7:43 AM COIN TELLER Multiple myeloma, remission status unspecified (HCC) PSA DIAGNOSTIC Routine 08/06/2024 7:43 AM COIN TELLER Multiple myeloma, remission status unspecified (HCC) PROTIME-INR STAT 08/03/2024 9:21 AM COIN TELLER Multiple myeloma in relapse (HCC) APTT STAT 08/03/2024 9:21 AM COIN TELLER Multiple myeloma in relapse (HCC) MAGNESIUM STAT 08/03/2024 7:40 AM COIN TELLER Multiple myeloma in relapse (HCC) GAMMA GT STAT 08/03/2024 7:40 AM COIN TELLER Multiple myeloma in relapse (HCC) EGFR Routine 08/03/2024 7:40 AM COIN TELLER Multiple myeloma, remission status unspecified (HCC) DIFFERENTIAL AUTO Routine 08/03/2024 7:4 0 AM COIN TELLER Multiple myeloma, remission status unspecified (HCC) CBC WITH AUTO DIFFERENTIAL Routine 08/03/2024 7:40 AM COIN TELLER Multiple myeloma, remission status unspecified (HCC) COMPREHENSIVE METABOLIC PANEL Routine 08/03/2024 7:40 AM COIN TELLER Multiple myeloma, remission status unspecified (HCC) IGA Routine 08/03/2024 7:40 AM COIN TELLER Multiple myeloma, remission status unspecified (HCC) IGG Routine 08/03/2024 7:40 AM COIN TELLER Multiple myeloma, remission status unspecified (HCC) IGM Routine 08/03/2024 7:40 AM COIN TELLER Multiple myeloma, remission status unspecified (HCC) IMMUNOGLOBULIN FREE LIGHT CHAINS Routine 08/03/2024 7:40 AM COIN TELLER Multiple myeloma, remission status unspecified (HCC) LACTATE DEHYDROGENASE Routine 08/03/2024 7:40 AM COIN TELLER Multiple myeloma, remission status unspecified (HCC) PROTEIN ELECTROPHORESIS, WITH REFLEX, SERUM Routine 08/03/2024 7:40 AM COIN TELLER Multiple myeloma, remission status unspecified (HCC) IMMUNOTYPING Routine 08/03/2024 7:40 AM COIN TELLER Multiple myeloma, remission status unspecified (HCC) HEMOGLOBIN A1C Routine 08/03/2024 7:40 AM COIN TELLER Multiple myeloma, remission status unspecified (HCC) URINALYSIS, MICROSCOPIC ONLY Routine 08/03/2024 7:30 AM COIN TELLER Multiple myeloma, remission status unspecified (HCC) URINE CULTURE Routine 08/03/2024 7:30 AM COIN TELLER URINALYSIS AND REFLEX TO MICROSCOPIC AND CULTURE Routine 08/03/2024 7:30 AM COIN TELLER Multiple myeloma, remission status unspecified (HCC) EGFR STAT 07/13/2024 7:40 AM COIN TELLER Multiple myeloma in relapse (HCC) DIFFERENTIAL AUTO STAT 07/13/2024 7:4 0 AM COIN TELLER Multiple myeloma in relapse (HCC) IGA Routine 07/13/2024 7:40 AM COIN TELLER Multiple myeloma, remission status unspecified (HCC) IGG Routine 07/13/2024 7:40 AM COIN TELLER Multiple myeloma, remission status unspecified (HCC) IGM Routine 07/13/2024 7:40 AM COIN TELLER Multiple myeloma, remission status unspecified (HCC) IMMUNOGLOBULIN FREE LIGHT CHAINS Routine 07/13/2024 7:40 AM COIN TELLER Multiple myeloma, remission status unspecified (HCC) PROTEIN ELECTROPHORESIS, WITH REFLEX, SERUM Routine 07/13/2024 7:40 AM COIN TELLER Multiple myeloma, remission status unspecified (HCC) IMMUNOTYPING Routine 07/13/2024 7:40 AM COIN TELLER Multiple myeloma, remission status unspecified (HCC) LACTATE DEHYDROGENASE Routine 07/13/2024 7:40 AM COIN TELLER Multiple myeloma in relapse (HCC) GAMMA GT STAT 07/13/2024 7:40 AM COIN TELLER Multiple myeloma in relapse (HCC) MAGNESIUM STAT 07/13/2024 7:40 AM COIN TELLER Multiple myeloma in relapse (HCC) COMPREHENSIVE METABOLIC PANEL STAT 07/13/2024 7:40 AM COIN TELLER Multiple myeloma in relapse (HCC) CBC WITH AUTO DIFFERENTIAL STAT 07/13/2024 7:40 AM COIN TELLER Multiple myeloma in relapse (HCC) APTT STAT 07/13/2024 7:24 AM COIN TELLER Multiple myeloma in relapse (HCC) PROTIME-INR STAT 07/13/2024 7:24 AM COIN TELLER Multiple myeloma in relapse (HCC) IMMUNOTYPING Routine 06/22/2024 7:20 AM COIN TELLER Multiple myeloma, remission status unspecified (HCC) EGFR Routine 06/22/2024 7:20 AM COIN TELLER Multiple myeloma, remission status unspecified (HCC) DIFFERENTIAL AUTO Routine 06/22/2024 7:2 0 AM COIN TELLER Multiple myeloma, remission status unspecified (HCC) CBC WITH AUTO DIFFERENTIAL Routine 06/22/2024 7:20 AM COIN TELLER Multiple myeloma, remission status unspecified (HCC) COMPREHENSIVE METABOLIC PANEL Routine 06/22/2024 7:20 AM COIN TELLER Multiple myeloma, remission status unspecified (HCC) IGA Routine 06/22/2024 7:20 AM COIN TELLER Multiple myeloma, remission status unspecified (HCC) IGG Routine 06/22/2024 7:20 AM COIN TELLER Multiple myeloma, remission status unspecified (HCC) IGM Routine 06/22/2024 7:20 AM COIN TELLER Multiple myeloma, remission status unspecified (HCC) IMMUNOGLOBULIN FREE LIGHT CHAINS Routine 06/22/2024 7:20 AM COIN TELLER Multiple myeloma, remission status unspecified (HCC) LACTATE DEHYDROGENASE Routine 06/22/2024 7:20 AM COIN TELLER Multiple myeloma, remission status unspecified (HCC) PROTEIN ELECTROPHORESIS, WITH REFLEX, SERUM Routine 06/22/2024 7:20 AM COIN TELLER Multiple myeloma, remission status unspecified (HCC) MAGNESIUM STAT 06/22/2024 7:20 AM COIN TELLER Multiple myeloma in relapse (HCC) GAMMA GT STAT 06/22/2024 7:20 AM COIN TELLER Multiple myeloma in relapse (HCC) PROTIME-INR STAT 06/22/2024 7:20 AM COIN TELLER Multiple myeloma in relapse (HCC) APTT STAT 06/22/2024 7:20 AM COIN TELLER Multiple myeloma in relapse (HCC) HEPATITIS C ANTIBODY STAT 10/16/2021 9:50 AM CDT Multiple myeloma in relapse (HCC) from Last 3 Months or Most Recently Relevant to Health Maintenance Results * SCAN - LABS (08/10/2024) us Provider Scanning Final Result * US Kidney Complete (08/06/2024 2:42 PM COIN TELLER) Anatomical Region Laterality Modality Kidney N/A Ultrasound 08/06/2024 3:27 PM COIN TELLER Impressions 08/06/2024 3:27 PM COIN TELLER 1. Mild nephromegaly with mild to moderate hydronephrosis bilaterally. 2. Incomplete bladder emptying with post void bladder residual of 397 mL. Electronically signed by: Dylan Tinajero M.D. Narrative 08/06/2024 3:27 PM COIN TELLER EXAMINATION: COMPLETE RENAL SONOGRAM HISTORY: Rising creatinine. COMPARISON: PET/CT 10/19/2021. FINDINGS: Kidneys: The echogenicity of both kidneys is normal. The kidneys are increased in size. The right kidney measures 14.2 cm in length, and the left, 13.6 cm in length. There is mild to moderate hydronephrosis in both kidneys.. There are no renal calculi visualized. There are large bilateral renal cysts. Bladder: The patient voided twice prior to the examination and post void residual measured 397 mL. Procedure Note Dylan Tinajero MD - 08/06/2024 EXAMINATION: COMPLETE RENAL SONOGRAM HISTORY: Rising creatinine. COMPARISON: PET/CT 10/19/2021. FINDINGS: Kidneys: The echogenicity of both kidneys is normal. The kidneys are increased in size. The right kidney measures 14.2 cm in length, and the left, 13.6 cm in length. There is mild to moderate hydronephrosis in both kidneys.. There are no renal calculi visualized. There are large bilateral renal cysts. Bladder: The patient voided twice prior to the examination and post void residual measured 397 mL. IMPRESSION: 1. Mild nephromegaly with mild to moderate hydronephrosis bilaterally. 2. Incomplete bladder emptying with post void bladder residual of 397 mL. Electronically signed by: Dylan Tinajero M.D. Hermelindo Butler [place] [facility] [place]ED[place] Final Result * (ABNORMAL) Urinalysis reflex to microscopic (08/06/2024 9:19 AM COIN TELLER) Color, ur Straw Yellow Clarity, ur Clear Clear [facility] Specific gravity, ur 1.013 1.003 - 1.030 [facility] pH, urine 5.5 [facility] Comment: Interpretive Data U rine pH is affected by diet, medications, systemic acid-base disturbances, and renal tubular function. pH may affect urinary stone formation. For example, urine pH below 6.0 may help reduce the tendency for calcium phosphate stones and pH greater than 6.0 may reduce the tendency for uric acid stone formation. Source: [employer] Current Interpretive Data was last revised on 2017 Protein, ur ql Negative Negative [facility] Glucose, ur ql Negative Negative [facility] Ketones, ur Negative Negative [facility] Bilirubin, ur Negative Negative [facility] Blood, ur 3+(A) Negative [facility] Urobilinogen, ur <2.0 <2.0 mg/dL [facility] Nitrite, ur Negative Negative [facility] Leukocyte esterase, ur Trace(A) [facility] UA reflex comment Reflex to microscopic UA will be performed. [facility] Urine 08/06/2024 9:19 AM COIN TELLER 08/06/2024 9:19 AM COIN TELLER Lyndsey Fagan SPEAR FISHER LAB URINE ORDERABLES [place] l Result Performing Organization Address [facility] Co de Phone Number [facility] [place] [address] * Protein / creatinine ratio, urine, random (08/06/2024 9:19 AM COIN TELLER) Protein, ur, quant 7.9 mg/dL Comment: Interpretive Data No reference range established. Current interpretive data was last revised 2018. Creatinine Ur 77.4 mg/dL [facility] Comment: Interpretive Data No reference range established. Current interpretive data was last revised 2018. Protein/creatinin e ratio 102.1 0.0 - 180.0 mg/g CR [facility] Urine 08/06/2024 9:19 AM COIN TELLER 08/06/2024 9:41 AM COIN TELLER Lyndsey Fagan SPEAR FISHER LAB URINE ORDERABLES Angeles l Result Performing Organization Address [facility] Co de Phone Number [facility] Department [place] [address] * (ABNORMAL) Urinalysis, microscopic only (08/06/2024 9:19 AM COIN TELLER) WBC, ur 6-10(A) 0 - 5 /HPF RBC, ur 21-50(A) 0 - 2 /HPF [facility] Bacteria, ur Trace(A) [facility] Mucous, ur Present(A) [facility] Urine 08/06/2024 9:19 AM COIN TELLER 08/06/2024 9:19 AM COIN TELLER us Lyndsey Fagan NP LAB URINE ORDERABLES [place] l Result Performing Organization Address City/[facility] Co de Phone Number [facility] Department [place] [address] * (ABNORMAL) eGFR (08/06/2024 7:43 AM COIN TELLER) eGFR 31(L) >=60 mL/min/1. 73 m2 Comment: Interpretive Data Reference Interval Normal >/= 90 mL/min/1.73m2 Mildly decreased* 60 - 89 mL/min/1.73m2 Mildly to moderately decreased 45 - 59 mL/min/1.73m2 Moderately to severely decreased 30 - 44 mL/min/1.73m2 Severely decreased 15 - 29 mL/min/1.73m2 Kidney Failure < 15 mL/min/1.73m2 *Relative to young adult level Estimated glomerular filtration rate is determined by the 2020 CKD-EPI equation recommended by the National Kidney Foundation (A Unifying Approach to GFR Estimation: Recommendations of the NKF-ASK Task Force on Reassessing the Inclusion of Race in Diagnosing Kidney Disease, JASN 2020). The CKD-EPI equation should not be used for patients with unstable renal function and has not been validated in children and those over 70. Current interpretive data was last reviewed 2021. Blood 08/06/2024 7:43 AM COIN TELLER 08/06/2024 7:52 AM COIN TELLER us Hermelindo Butler MD LAB BLOOD ORDER ELANA Final Result Performing Organization Address [facility] Co de Phone Number [facility] Department [place] [address] * (ABNORMAL) Differential, auto (08/06/2024 7:43 AM COIN TELLER) Neutrophil abs 5.4 1.5 - 6.5 K/cumm Comment:Testing performed by : [facility], [address] [place] [phone] Lymphocyte abs 0.8 0.8 - 3.3 K/cumm [facility] Comment:Testing performed by : [facility], [address] [place] [phone] Monocyte abs 0.5 0.2 - 0.8 K/cumm [facility] Comment:Testing performed by : [facility], [address] [place] [address] Eosinophil abs 0.7(H) 0.0 - 0.5 K/cumm [facility] Comment:Testing performed by : [facility], [address] [place], [place] [phone] Basophil abs 0.0 0.0 - 0.1 K/cumm [facility] Comment:Testing performed by : [facility], [address] [place] [address] Neutrophil pct 72.4 % [facility] Comment: Interpretive Data Percent cell count reference ranges are not reported, since discordance with absolute values may lead to misinterpretation of CBC data. Current Interpretive Data was last revised on 2017. Testing performed by: [facility], [address] [place] [phone] Lymphocyte pct 10.4 % [facility] Comment: Interpretive Data Percent cell count reference ranges are not reported, since discordance with absolute values may lead to misinterpretation of CBC data. Current Interpretive Data was last revised on 2017. Testing performed by: [facility], [address] [place] [phone] Monocyte pct 7.3 % [facility] Comment: Interpretive Data Percent cell count reference ranges are not reported, since discordance with absolute values may lead to misinterpretation of CBC data. Current Interpretive Data was last revised on 2017. Testing performed by: [facility], [address] [place] [phone] Eosinophil pct 9.4 % [facility] Comment: Interpretive Data Percent cell count reference ranges are not reported, since discordance with absolute values may lead to misinterpretation of CBC data. Current Interpretive Data was last revised on 2017. Testing performed by: [facility], [address] [place] [phone] Basophil pct 0.5 % [facility] Comment: Interpretive Data Percent cell count reference ranges are not reported, since discordance with absolute values may lead to misinterpretation of CBC data. Current Interpretive Data was last revised on 2017. Testing performed by: [facility], [address] [place] [phone] Blood 08/06/2024 7:4 3 AM COIN TELLER 08/06/2024 7:51 AM COIN TELLER Hermelindo Butler MD LAB BLOOD ORDER ELANA Final Result [facility] Department [place] [address] * (ABNORMAL) CBC with auto differential (08/06/2024 7:43 AM COIN TELLER) WBC 7.5 3.8 - 9.9 K/cumm Comment:Testing performed by : [facility], [address] [place] [address] Hgb 13.7 13.0 - 17.5 g/dL MT [facility] Comment:Testing performed by : [facility], [address] [place] [address] Hct 40.6 38.9 - 50.3 % MT [facility] Comment:Testing performed by : [facility], [address] [place] [address] Plt 169 150 - 400 K/cumm MT [facility] Comment:Testing performed by : [facility], [address] [place] [address] MPV 7.5 6.8 - 10.4 fL [facility] Comment:Testing performed by : [facility], [address] [place] [address] RBC 4.37 4.30 - 5.80 M/cumm MT [facility] Comment:Testing performed by : [facility], [address] [place] [address] MCV 92.7 81.3 - 96.4 fL MT [facility] Comment:Testing performed by : [facility], [address] [place] [address] MCH 31.3 27.1 - 33.3 pg MT [facility] Comment:Testing performed by : [facility], [address] [place] [address] MCHC 33.8 32.3 - 35.7 g/dL MT [facility] Comment:Testing performed by : [facility], [address] [place] [address] RDW CV 16.5(H) 11.1 - 14.9 % MT [facility] Comment:Testing performed by : [facility], [address] [place] [address] NRBC abs 0.00 0.00 - 0.01 K/cumm MT [facility] Comment:Testing performed by : [facility], [address] [place] [address] Blood 08/06/2024 7:43 AM COIN TELLER 08/06/2024 7:51 AM COIN TELLER Hermelindo Butler MD LAB BLOOD ORDER ELANA Final Result [facility] Department [place] [address] * (ABNORMAL) PSA diagnostic (08/06/2024 7:43 AM COIN TELLER) PSA-Total 6.28(H) <=6.20 ng/mL Comment: Interpretive Data AGE SEX REFERENCE INTERVAL 0 minutes-150 years Female None 0 minutes-49 years Male None 50-59 years Male 0-3.90 60-69 years Male 0-5.40 70-79 years Male 0-6.20 80-150 years Male 0-6.20 The Scotty PSA Total assay procedure was used. Results from different manufacturers or methods may not be comparable. Serial testing should be performed using the same method. Current interpretive data last revised 21. Blood 08/06/2024 7:43 AM COIN TELLER 08/06/2024 7:52 AM COIN TELLER Hermelindo Butler MD LAB BLOOD ORDER ELANA Final Result Performing Organization Address City/[facility] Co de Phone Number [facility] Department [place] [address] * Lactate dehydrogenase (LD) (08/06/2024 7:43 AM COIN TELLER) Lactate dehydrogenase (LDH) 161 100 - 250 Units/L Blood 08/06/2024 7:43 AM COIN TELLER 08/06/2024 7:52 AM COIN TELLER Hermelindo Butler MD LAB BLOOD ORDER ELANA Final Result Performing Organization Address City/[facility] de Phone Number [facility] Department [place] [address] * (ABNORMAL) Lipid panel (08/06/2024 7:43 AM COIN TELLER) Cholesterol 128 30 - 199 mg/dL Comment: Interpretive Data Ages < or = 19 years Acceptable: <170 mg/dL Borderline high: 170-199 mg/dL High: >or= 200 mg/dL Ages > or = 20 years Desirable: <200 mg/dL Borderline high: 200-239 mg/dL High: >or= 240 mg/dL Literature References: 1. Expert Panel on Integrated Guidelines for Cardiovascular Health and Risk Reduction in Children and Adolescents. Pediatrics 2011;128:S213 2. NCEP Expert Panel. Circulation 2004;110:227 Current Interpretive Data was last revised on 2018. Triglycerides 149 <=149 mg/dL [facility] Comment: Interpretive Data Ages < or = 9 years Acceptable: <75 mg/dL Borderline high: 75-99 mg/dL High: >or= 100 mg/dL Ages 10 to 20 years Acceptable: <90 mg/dL Borderline high: 90-129 mg/dL High: >or= 130 mg/dL Ages > or = 20 years Desirable: <150 mg/dL Borderline high: 150-199 mg/dL High: 200-499 mg/dL Very high: >or= 499 mg/dL Literature References: 1. Expert Panel on Integrated Guidelines for Cardiovascular Health and Risk Reduction in Children and Adolescents. Pediatrics 2011;128:S213 2. NCEP Expert Panel. Circulation 2004;110:227 Current Interpretive Data was last revised on 2018. HDL 38(L) >=40 mg/dL MT [facility] Comment: Interpretive Data Ages < or = 19 years Acceptable: >45 mg/dL Borderline low: 40-45 mg/dL Low: <40 mg/dL Ages > or = 20 years Desirable: >or= 60 mg/dL Low: <40 mg/dL Literature References: 1. Expert Panel on Integrated Guidelines for Cardiovascular Health and Risk Reduction in Children and Adolescents. Pediatrics 2011;128:S213 2. NCEP Expert Panel. Circulation 2004;110:227 Current Interpretive Data was last revised on 2018. LDL, calculated 64 <=129 mg/dL MT [facility] Comment: Interpretive Data Ages < or = 19 years Acceptable: <110 mg/dL Borderline high: 110-129 mg/dL High: >or= 130 mg/dL Ages > or = 20 years Optimal: <100 mg/dL Near optimal: 100-129 mg/dL Borderline high: 130-159 mg/dL High: >160 mg/dL Calculated using the Luis LDL-C estimating equation. This equation was implemented on 2024. Prior to this date LDL-C was estimated using the Friedewald equation. Literature References: 1. Expert Panel on Integrated Guidelines for Cardiovascular Health and Risk Reduction in Children and Adolescents. Pediatrics 2011;128:S213 2. NCEP Expert Panel. Circulation 2004;110:227 3. Luis Cordon. NATALIIA Cardiol. 2020 October 07;5(5):540-548. doi: 10.1001/[email or web address] Current Interpretive Data was last revised on 2024. Non-HDL Cholesterol 90 mg/dL [facility] Comment: Interpretive Data Ages < or = 19 years Acceptable: <120 mg/dL Borderline high: 120-144 mg/dL High: >145 mg/dL Ages > or = 20 years When triglycerides are >200 mg/dL, Non-HDL cholesterol is a secondary target of therapy with treatment goals that are 30 mg/dL greater than the LDL cholesterol target. Literature References: 1. Expert Panel on Integrated Guidelines for Cardiovascular Health and Risk Reduction in Children and Adolescents. Pediatrics 2011;128:S213 2. NCEP Expert Panel. Circulation 2004;110:227 Current Interpretive Data was last revised on 2018. Chol/HDL ratio 3 [facility] Blood 08/06/2024 7:43 AM COIN TELLER 08/06/2024 7:52 AM COIN TELLER us Hermelindo Butler MD LAB BLOOD ORDER ELANA Final Result [facility] Department [place] [address] * (ABNORMAL) Comprehensive metabolic panel (08/06/2024 7:43 AM COIN TELLER) Sodium 145 135 - 145 mmol/L Potassium, pl 4.2 3.3 - 4.9 mmol/L [facility] Chloride 108 97 - 110 mmol/L [facility] CO2 30 22 - 32 mmol/L [facility] Anion gap 7 2 - 15 mmol/L [facility] BUN 51(H) 6 - 25 mg/dL [facility] Creatinine 2.21(H) 0.80 - 1.30 mg/dL [facility] Glucose 113 70 - 199 mg/dL [facility] Comment: Interpretive Data Fasting glucose >/= 126 mg/dl is diagnostic for diabetes. Fasting is defined as no caloric intake for at least 8 hours. Fasting glucose between 100 mg/dl to 125 mg/dl is diagnostic of prediabetes. In a patient with classic symptoms of hyperglycemia or hyperglycemic crisis, a random glucose >/= 200 mg/dl is diagnostic for diabetes. In the absence of unequivocal hyperglycemia, results should be confirmed by repeat testing. The classification and Diagnosis of Diabetes Diabetes Care 202; 46: S19-S40. Current interpretive data was last revised 2022. Calcium 9.2 8.5 - 10.3 mg/dL [facility] Bilirubin, total 0.5 0.1 - 1.2 mg/dL [facility] Protein, pl 6.2(L) 6.5 - 8.5 g/dL [facility] Albumin 4.1 3.5 - 5.0 g/dL [facility] Alk phos 61 40 - 130 Units/L [facility] ALT 15 7 - 55 Units/L [facility] AST 16 10 - 50 Units/L [facility] Blood 08/06/2024 7:43 AM COIN TELLER 08/06/2024 7:52 AM COIN TELLER Hermelindo Butler MD LAB BLOOD ORDER ELANA Final Result Performing Organization Address [facility] Co de Phone Number [facility] [place] [address] * aPTT (08/03/2024 9:21 AM COIN TELLER) aPTT 31 28 - 38 sec Comment: Interpretive Data Heparin therapeutic range: 66.0 - 100.0 seconds. Range based on correlation with therapeutic heparin activity range of 0.3 - 0.7 Units/mL. Current interpretive data was last revised on 2023. Blood 08/03/2024 9:21 AM COIN TELLER 08/03/2024 9:47 AM COIN TELLER Hermelindo Butler MD LAB BLOOD ORDER ELANA Final Result Performing Organization Address City/[facility]/ZIP Co de Phone Number [facility] [place] [address] * Protime-INR (08/03/2024 9:21 AM COIN TELLER) PT 11.5 9.7 - 13.0 sec INR 1.06 0.90 - 1.20 [facility] Comment: Interpretive data Oral anticoagulant therapeutic ranges: Venous thromboembolism prophylaxis or treatment: 2.0-3.0 CARDIOLOGY Standard range: 2.0-3.0 High-intensity range: 2.5-3.5 Refer to indication-specific guidelines for appropriate target ranges for prosthetic heart valve replacement. Current interpretive data was last revised on 2019. Blood 08/03/2024 9:21 AM COIN TELLER 08/03/2024 9:47 AM COIN TELLER Hermelindo Butler MD LAB BLOOD ORDER ELANA Final Result Performing Organization Address [facility] Co de Phone Number [facility] Department [place] [address] * Immunotyping, serum with interpretation (08/03/2024 7:40 AM COIN TELLER) Immunosubtraction Please see comment Comment: NO PARAPROTEIN DETECTED Reviewed and signed by Hermelindo Mcnulty MD 08/04/2024 Blood 08/03/2024 7:40 AM COIN TELLER 08/03/2024 8:24 AM COIN TELLER Hermelindo Butler MD LAB BLOOD ORDER ELANA Final Result Performing Organization Address [facility] Co de Phone Number [facility] Department [place] [address] * (ABNORMAL) eGFR (08/03/2024 7:40 AM COIN TELLER) eGFR 37(L) >=60 mL/min/1. 73 m2 Comment: Interpretive Data Reference Interval Normal >/= 90 mL/min/1.73m2 Mildly decreased* 60 - 89 mL/min/1.73m2 Mildly to moderately decreased 45 - 59 mL/min/1.73m2 Moderately to severely decreased 30 - 44 mL/min/1.73m2 Severely decreased 15 - 29 mL/min/1.73m2 Kidney Failure < 15 mL/min/1.73m2 *Relative to young adult level Estimated glomerular filtration rate is determined by the 2020 CKD-EPI equation recommended by the National Kidney Foundation (A Unifying Approach to GFR Estimation: Recommendations of the NKF-ASK Task Force on Reassessing the Inclusion of Race in Diagnosing Kidney Disease, JASN 2020). The CKD-EPI equation should not be used for patients with unstable renal function and has not been validated in children and those over 70. Current interpretive data was last reviewed 2021. Blood 08/03/2024 7:40 AM COIN TELLER 08/03/2024 7:49 AM COIN TELLER us Hermelindo Butler MD LAB BLOOD ORDER ELANA Final Result [place] [facility] Department [place] [address] * (ABNORMAL) Differential, auto (08/03/2024 7:40 AM COIN TELLER) Neutrophil abs 5.6 1.5 - 6.5 K/cumm Comment:Testing performed by : [facility], [address] [place] [phone] Lymphocyte abs 0.9 0.8 - 3.3 K/cumm [facility] Comment:Testing performed by : [facility], [address] [place] [phone] Monocyte abs 0.6 0.2 - 0.8 K/cumm [facility]ER[facility] Comment:Testing performed by : [facility], [address] [place] [phone] Eosinophil abs 0.8(H) 0.0 - 0.5 K/cumm [facility] Comment:Testing performed by : [facility], [address] [place] [phone] Basophil abs 0.0 0.0 - 0.1 K/cumm [facility]J Comment:Testing performed by : [facility], [address] [place] [phone] Neutrophil pct 70.4 % [facility]ER[facility] SU[facility] Comment: Interpretive Data Percent cell count reference ranges are not reported, since discordance with absolute values may lead to misinterpretation of CBC data. Current Interpretive Data was last revised on 2017. Testing performed by: [facility], [address] [place] [phone] Lymphocyte pct 11.2 % [facility] Comment: Interpretive Data Percent cell count reference ranges are not reported, since discordance with absolute values may lead to misinterpretation of CBC data. Current Interpretive Data was last revised on 2017. Testing performed by: [facility], [address] [place] [phone] Monocyte pct 7.7 % [facility] Comment: Interpretive Data Percent cell count reference ranges are not reported, since discordance with absolute values may lead to misinterpretation of CBC data. Current Interpretive Data was last revised on 2017. Testing performed by: [facility], [address] [place] [phone] Eosinophil pct 10.1 % MT [facility] Comment: Interpretive Data Percent cell count reference ranges are not reported, since discordance with absolute values may lead to misinterpretation of CBC data. Current Interpretive Data was last revised on 2017. Testing performed by: [facility], [address] [place] [phone] Basophil pct 0.6 % CER[facility]ANK [facility] Comment: Interpretive Data Percent cell count reference ranges are not reported, since discordance with absolute values may lead to misinterpretation of CBC data. Current Interpretive Data was last revised on 2017. Testing performed by: [facility], [address] [place] [phone] Blood 08/03/2024 7:40 AM COIN TELLER 08/03/2024 7:47 AM COIN TELLER us Hermelindo Butler MD LAB BLOOD ORDER ELANA Final Result MT [facility] Department [place] [address] * (ABNORMAL) Immunoglobulin free light chains (08/03/2024 7:40 AM COIN TELLER) [facility] [place]/Lambda ratio [facility] See Comment 0.26 - 1.65 Comment: Unable to calculate exact result. Interpretive Data The Binding Site FreeLite assay procedure was used. Results from different manufacturers or methods may not be comparable. Serial testing should be performed using the same methods and instrumentation. Current Interpretive Data was last revised on 2023. [place] free light chain [facility] <0.06(L) 0.33 - 1.94 mg/dL [facility] Comment: Interpretive Data The Binding Site FreeLite assay procedure was used. Results from different manufacturers or methods may not be comparable. Serial testing should be performed using the same methods and instrumentation. Current Interpretive Data was last revised on 2023. Lambda free light chain [facility] <0.13(L) 0.57 - 2.63 mg/dL [facility] Comment: Interpretive Data The Binding Site FreeLite assay procedure was used. Results from different manufacturers or methods may not be comparable. Serial testing should be performed using the same methods and instrumentation. Current Interpretive Data was last revised on 2023. Blood 08/03/2024 7:40 AM COIN TELLER 08/03/2024 8:24 AM COIN TELLER Hermelindo Butler MD LAB BLOOD ORDER ELANA Final Result [facility] Department [place] [address] * (ABNORMAL) CBC with auto differential (08/03/2024 7:40 AM COIN TELLER) [facility] WBC 7.9 3.8 - 9.9 K/cumm Comment:Testing performed by : [facility], [address] [place] [phone] Hgb 13.7 13.0 - 17.5 g/dL MT SUAREZ Comment:Testing performed by : [facility], [address] [place] [phone] Hct 41.5 38.9 - 50.3 % MT SURAEZ Comment:Testing performed by : [facility], [address] [place] [address] Plt 163 150 - 400 K/cumm CERFRANK BJ Comment:Testing performed by : [facility], [address] [place] [address] MPV 7.8 6.8 - 10.4 fL [facility]ER[facility]ANK BJ Comment:Testing performed by : [facility], [address] [place] [address] RBC 4.50 4.30 - 5.80 M/cumm [facility]ER[facility]ANK BJ Comment:Testing performed by : [facility], [address] [place] [address] MCV 92.1 81.3 - 96.4 fL [facility]ER[facility] BJ Comment:Testing performed by : [facility], [address] [place] [address] MCH 30.4 27.1 - 33.3 pg CERFRANK SUAREZ Comment:Testing performed by : [facility], [address] [place] [address] MCHC 33.0 32.3 - 35.7 g/dL [facility]ER[facility] BJ Comment:Testing performed by : [facility], [address] [place] [address] RDW CV 16.6(H) 11.1 - 14.9 % MT BJ Comment:Testing performed by : [facility], [address] [place] [address] NRBC abs 0.00 0.00 - 0.01 K/cumm MT BJ Comment:Testing performed by : [facility], [address] [place] [address] Blood 08/03/2024 7:40 AM COIN TELLER 08/03/2024 7:47 AM COIN TELLER us Hermelindo Butler MD LAB BLOOD ORDER ELANA Final Result MT SUAREZ [facility] Department [place] [address] * (ABNORMAL) Protein electrophoresis with reflex, serum with interpretation (08/03/2024 7:40 AM COIN TELLER) [facility] Protein, sr 5.7(L) 6.2 - 8.2 g/dL Albumin 3.8 3.2 - 5.0 g/dL [facility] Alpha-1 globulin 0.3 0.2 - 0.4 g/dL [facility] Alpha-2 globulin 0.6 0.5 - 1.0 g/dL [facility] Beta-1 globulin 0.4 0.3 - 0.6 g/dL [facility] Beta-2 globulin 0.3 0.2 - 0.6 g/dL [facility] Gamma globulin 0.2(L) 0.5 - 1.7 g/dL [facility] SPEP interp Please see comment [facility] Comment: No apparent monoclonal peak Decreased gamma globulins Electrophoretic pattern appears similar to previous sample 07/14/24 *See immunotyping for further information Reviewed and signed by Hermelindo Mcnulty MD 08/04/2024 Blood 08/03/2024 7:40 AM COIN TELLER 08/03/2024 8:24 AM COIN TELLER Hermelindo Butler MD LAB BLOOD ORDER ELANA Final Result Performing Organization Address City/[facility] Co de Phone Number [facility] [place] [address] * Magnesium (08/03/2024 7:40 AM COIN TELLER) [facility] Magnesium 2.2 1.4 - 2.5 mg/dL Blood 08/03/2024 7:40 AM COIN TELLER 08/03/2024 9:36 AM COIN TELLER Hermelindo Butler MD LAB BLOOD ORDER ELANA Final Result [facility] [place] [address] * Lactate dehydrogenase (LD) (08/03/2024 7:40 AM COIN TELLER) Pathologist [facility] Lactate dehydrogenase (LDH) 172 100 - 250 Units/L Blood 08/03/2024 7:40 AM COIN TELLER 08/03/2024 7:49 AM COIN TELLER Hermelindo Butler MD LAB BLOOD ORDER ELANA Final Result Performing Organization Address [facility] de Phone Number [facility] [place] [address] * (ABNORMAL) Hemoglobin A1c (08/03/2024 7:40 AM COIN TELLER) [facility] Hgb A1C 5.8(H) 4.0 - 5.6 % Estimated Average Glucose 120 mg/dL [facility] Comment: The ADA recommends reporting an estimated Average Glucose (eAG) with all Hemoglobin A1c results using the equation derived from a study of 507 normal and diabetic adults. Minority populations were underrepresented and children were not included. (Diabetes Care 2020; 43(S1): S66-S76). The eAG is not equivalent to a fasting glucose. Blood 08/03/2024 7:40 AM COIN TELLER 08/03/2024 7:49 AM COIN TELLER Lyndsey Fagan NP LAB BLOOD ORDERABLES Angeles l Result Performing Organization Address [facility] de Phone Number [facility] [place] [address] * Gamma GT (08/03/2024 7:40 AM COIN TELLER) [facility] GGT 23 10 - 50 Units/L Blood 08/03/2024 7:40 AM COIN TELLER 08/03/2024 9:36 AM COIN TELLER Hermelindo Butler MD LAB BLOOD ORDER ELANA Final Result Performing Organization Address [facility]/ZIP Co de Phone Number [facility] Department [place] [address] * (ABNORMAL) IgA (08/03/2024 7:40 AM COIN TELLER) Immunoglobulin A <50(L) 70 - 400 mg/dL Blood 08/03/2024 7:40 AM COIN TELLER 08/03/2024 8:09 AM COIN TELLER Hermelindo Butler MD LAB BLOOD ORDER ELANA Final Result Performing Organization Address [facility] [place] [address] * (ABNORMAL) IgM (08/03/2024 7:40 AM COIN TELLER) Immunoglobulin M <25(L) 40 - 230 mg/dL Blood 08/03/2024 7:40 AM COIN TELLER 08/03/2024 8:09 AM COIN TELLER Hermelindo Butler MD LAB BLOOD ORDER ELANA Final Result Performing Organization Address [facility] Co de Phone Number [facility] Department [place] [address] * (ABNORMAL) IgG (08/03/2024 7:40 AM COIN TELLER) Immunoglobulin G <300(L) 700 - 1,600 mg/dL Blood 08/03/2024 7:40 AM COIN TELLER 08/03/2024 8:09 AM COIN TELLER Hermelindo Butler MD LAB BLOOD ORDER ELANA Final Result Performing Organization Address City/[facility] Co de Phone Number [facility] [place] [address] * (ABNORMAL) Comprehensive metabolic panel (08/03/2024 7:40 AM COIN TELLER) Sodium 141 135 - 145 mmol/L Potassium, pl 4.0 3.3 - 4.9 mmol/L [facility] Chloride 104 97 - 110 mmol/L [facility] CO2 30 22 - 32 mmol/L [facility] Anion gap 7 2 - 15 mmol/L [facility] BUN 47(H) 6 - 25 mg/dL [facility] Creatinine 1.92(H) 0.80 - 1.30 mg/dL [facility] Glucose 116 70 - 199 mg/dL [facility] Comment: Interpretive Data Fasting glucose >/= 126 mg/dl is diagnostic for diabetes. Fasting is defined as no caloric intake for at least 8 hours. Fasting glucose between 100 mg/dl to 125 mg/dl is diagnostic of prediabetes. In a patient with classic symptoms of hyperglycemia or hyperglycemic crisis, a random glucose >/= 200 mg/dl is diagnostic for diabetes. In the absence of unequivocal hyperglycemia, results should be confirmed by repeat testing. The classification and Diagnosis of Diabetes Diabetes Care 2021; 46: S19-S40. Current interpretive data was last revised 2022. Calcium 9.2 8.5 - 10.3 mg/dL [facility] Bilirubin, total 0.7 0.1 - 1.2 mg/dL [facility] Protein, pl 6.2(L) 6.5 - 8.5 g/dL [facility] Albumin 3.9 3.5 - 5.0 g/dL [facility] Alk phos 63 40 - 130 Units/L [facility] ALT 15 7 - 55 Units/L [facility] AST 17 10 - 50 Units/L [facility] Blood 08/03/2024 7:40 AM COIN TELLER 08/03/2024 7:49 AM COIN TELLER Hermelindo Butler MD LAB BLOOD ORDER ELANA Final Result [facility] One [facility] Department [place] [address] * (ABNORMAL) Urinalysis reflex to microscopic and culture Urine, clean voided (08/03/2024 7:30 AM COIN TELLER) Color, ur Straw Yellow Clarity, ur Clear Clear [facility] Specific gravity, ur 1.012 1.003 - 1.030 [facility] pH, urine 5.5 [facility] Comment: Interpretive Data U rine pH is affected by diet, medications, systemic acid-base disturbances, and renal tubular function. pH may affect urinary stone formation. For example, urine pH below 6.0 may help reduce the tendency for calcium phosphate stones and pH greater than 6.0 may reduce the tendency for uric acid stone formation. Source: [facility] Current Interpretive Data was last revised on 2017 Protein, ur ql Negative Negative [facility] Glucose, ur ql Negative Negative [facility] Ketones, ur Negative Negative [facility] Bilirubin, ur Negative Negative [facility] Blood, ur 2+(A) Negative [facility] Urobilinogen, ur <2.0 <2.0 mg/dL [facility] Nitrite, ur Negative Negative [facility] Leukocyte esterase, ur Negative [facility] UA reflex comment Reflex to microscopic UA will be performed. [facility] Urine, clean voided 08/03/2024 7:30 AM COIN TELLER 08/03/2024 7:30 AM COIN TELLER Lyndsey Fagan NP LAB MICROBIOLOGY - GENERA L ORDERABLES Final Result [facility] One [facility] Department [place] [address] * (ABNORMAL) Urinalysis, microscopic only (08/03/2024 7:30 AM COIN TELLER) WBC, ur 6-10(A) 0 - 5 /HPF RBC, ur 11-20(A) 0 - 2 /HPF [facility] Epithelial cells, squamous, ur 1-5 0 - 5 /HPF [facility] Bacteria, ur Trace(A) [facility] Culture Reflex Comment Reflex conditions for urine culture (WBC >10) not met. [facility] Urine, clean voided 08/03/2024 7:30 AM COIN TELLER 08/03/2024 7:30 AM COIN TELLER Lyndsey Fagan NP LAB URINE ORDERABLES Angeles l Result Performing Organization Address [facility] Co de Phone Number [facility] Department [place] [address] * Urine culture Urine, clean voided (08/03/2024 7:30 AM COIN TELLER) Pathologist [facility] Report Final Report: No growth Urine, clean voided 08/03/2024 7:30 AM COIN TELLER 08/03/2024 9:59 AM COIN TELLER Narrative [facility] - 08/04/2024 11:14 AM COIN TELLER Testing performed by [facility] ([phone]) Hermelindo Butler MD LAB MICROBIOLOG Y - GENERAL ORDERABLES Final Result Performing Organization Address [facility] Co de Phone Number [facility] Department [place] [address] * Immunotyping, serum with interpretation (07/13/2024 7:40 AM COIN TELLER) Pathologist [facility] Immunosubtraction Please see comment Comment: NO PARAPROTEIN DETECTED Reviewed and signed by Rufino Huff MD, PhD 07/14/2024 Blood 07/13/2024 7:40 AM COIN TELLER 07/13/2024 8:42 AM COIN TELLER Hermelindo Butler MD LAB BLOOD ORDER ELANA Final Result Performing Organization Address [facility] [place] [address] * (ABNORMAL) eGFR (07/13/2024 7:40 AM COIN TELLER) Pathologist [facility] eGFR 57(L) >=60 mL/min/1. 73 m2 Comment: Interpretive Data Reference Interval Normal >/= 90 mL/min/1.73m2 Mildly decreased* 60 - 89 mL/min/1.73m2 Mildly to moderately decreased 45 - 59 mL/min/1.73m2 Moderately to severely decreased 30 - 44 mL/min/1.73m2 Severely decreased 15 - 29 mL/min/1.73m2 Kidney Failure < 15 mL/min/1.73m2 *Relative to young adult level Estimated glomerular filtration rate is determined by the 2020 CKD-EPI equation recommended by the National Kidney Foundation (A Unifying Approach to GFR Estimation: Recommendations of the NKF-ASK Task Force on Reassessing the Inclusion of Race in Diagnosing Kidney Disease, JASN 2020). The CKD-EPI equation should not be used for patients with unstable renal function and has not been validated in children and those over 70. Current interpretive data was last reviewed 2021. Blood 07/13/2024 7:40 AM COIN TELLER 07/13/2024 7:47 AM COIN TELLER Hermelindo Butler MD LAB BLOOD ORDER ELANA Final Result [facility] One [facility] Department [place] [address] * Differential, auto (07/13/2024 7:40 AM COIN TELLER) Neutrophil abs 5.4 1.5 - 6.5 K/cumm Comment:Testing performed by : [facility], [address] [place] [phone] Lymphocyte abs 0.9 0.8 - 3.3 K/cumm MT [facility] Comment:Testing performed by : [facility], [address] [place] [phone] Monocyte abs 0.5 0.2 - 0.8 K/cumm MT SUAREZ Comment:Testing performed by : [facility], [address] [place] [phone] Eosinophil abs 0.5 0.0 - 0.5 K/cumm MT SUAREZ Comment:Testing performed by : [facility], [address] [place] [phone] Basophil abs 0.0 0.0 - 0.1 K/cumm CERFRANK SUAREZ Comment:Testing performed by : [facility], [address] [place] [phone] Neutrophil pct 73.6 % [facility]ER[facility] BJ Comment: Interpretive Data Percent cell count reference ranges are not reported, since discordance with absolute values may lead to misinterpretation of CBC data. Current Interpretive Data was last revised on 2017. Testing performed by: [facility], [address] [place] [phone] Lymphocyte pct 12.0 % [facility]ER[facility] BJ Comment: Interpretive Data Percent cell count reference ranges are not reported, since discordance with absolute values may lead to misinterpretation of CBC data. Current Interpretive Data was last revised on 2017. Testing performed by: [facility], [address] [place] [phone] Monocyte pct 7.4 % [facility]ER[facility]ANK BJ Comment: Interpretive Data Percent cell count reference ranges are not reported, since discordance with absolute values may lead to misinterpretation of CBC data. Current Interpretive Data was last revised on 2017. Testing performed by: [facility], [address] [place] [phone] Eosinophil pct 6.5 % CERNER BJ Comment: Interpretive Data Percent cell count reference ranges are not reported, since discordance with absolute values may lead to misinterpretation of CBC data. Current Interpretive Data was last revised on 2017. Testing performed by: [facility], [address] [place] [phone] Basophil pct 0.5 % CERNER BJ Comment: Interpretive Data Percent cell count reference ranges are not reported, since discordance with absolute values may lead to misinterpretation of CBC data. Current Interpretive Data was last revised on 2017. Testing performed by: [facility], [address] [place] [phone] Blood 07/13/2024 7:40 AM COIN TELLER 07/13/2024 7:46 AM COIN TELLER Hermelindo Butler MD LAB BLOOD ORDER ELANA Final Result MT SUAREZ [facility] Department [place] [address] * (ABNORMAL) Immunoglobulin free light chains (07/13/2024 7:40 AM COIN TELLER) Pathologist [facility] [place]/Lambda ratio [facility] See Comment 0.26 - 1.65 Comment: Unable to calculate exact result. Interpretive Data The Binding Site FreeLite assay procedure was used. Results from different manufacturers or methods may not be comparable. Serial testing should be performed using the same methods and instrumentation. Current Interpretive Data was last revised on 2023. [place] free light chain [facility] <0.06(L) 0.33 - 1.94 mg/dL [facility] Comment: Interpretive Data The Binding Site FreeLite assay procedure was used. Results from different manufacturers or methods may not be comparable. Serial testing should be performed using the same methods and instrumentation. Current Interpretive Data was last revised on 2023. Lambda free light chain [facility] <0.13(L) 0.57 - 2.63 mg/dL [facility] Comment: Interpretive Data The Binding Site FreeLite assay procedure was used. Results from different manufacturers or methods may not be comparable. Serial testing should be performed using the same methods and instrumentation. Current Interpretive Data was last revised on 2023. Blood 07/13/2024 7:40 AM COIN TELLER 07/13/2024 8:42 AM COIN TELLER Hermelindo Butler MD LAB BLOOD ORDER ELANA Final Result MT SUAREZ Man[facility] Department [place] [address] * (ABNORMAL) CBC with auto differential (07/13/2024 7:40 AM COIN TELLER) Pathologist [facility] WBC 7.4 3.8 - 9.9 K/cumm Comment:Testing performed by : [facility], [address] [place] [address] Hgb 14.4 13.0 - 17.5 g/dL CERNER BJ Comment:Testing performed by : [facility], [address] [place] [address] Hct 44.1 38.9 - 50.3 % CERNER BJ Comment:Testing performed by : [facility], [address] [place] [address] Plt 174 150 - 400 K/cumm CERNER BJ Comment:Testing performed by : [facility], [address] [place] [address] MPV 7.5 6.8 - 10.4 fL CERNER BJ Comment:Testing performed by : [facility], [address] [place] [address] RBC 4.75 4.30 - 5.80 M/cumm CERNER BJ Comment:Testing performed by : [facility], [address] [place] [address] MCV 92.8 81.3 - 96.4 fL CERNER BJ Comment:Testing performed by : [facility], [address] [place] [address] MCH 30.2 27.1 - 33.3 pg CERNER BJ Comment:Testing performed by : [facility], [address] [place] [address] MCHC 32.6 32.3 - 35.7 g/dL CERNER BJ Comment:Testing performed by : [facility], [address] [place] [address] RDW CV 16.2(H) 11.1 - 14.9 % CERNER BJ Comment:Testing performed by : [facility], [address] [place] [address] NRBC abs 0.00 0.00 - 0.01 K/cumm CERNER BJ Comment:Testing performed by : [facility], [address] [place] [address] Blood 07/13/2024 7:40 AM COIN TELLER 07/13/2024 7:46 AM COIN TELLER Hermelindo Butler MD LAB BLOOD ORDER ELANA Final Result Performing Organization Address City/[facility] Co de Phone Number [facility] Department [place] [address] * (ABNORMAL) Protein electrophoresis with reflex, serum with interpretation (07/13/2024 7:40 AM COIN TELLER) Pathologist [facility] Protein, sr 5.7(L) 6.2 - 8.2 g/dL Albumin 3.7 3.2 - 5.0 g/dL [facility] Alpha-1 globulin 0.3 0.2 - 0.4 g/dL [facility] Alpha-2 globulin 0.6 0.5 - 1.0 g/dL [facility] Beta-1 globulin 0.4 0.3 - 0.6 g/dL [facility] Beta-2 globulin 0.3 0.2 - 0.6 g/dL [facility] Gamma globulin 0.3(L) 0.5 - 1.7 g/dL [facility] SPEP interp Please see comment [facility] Comment: No apparent monoclonal peak Decreased gamma globulins Electrophoretic pattern appears similar to previous sample 06/23/24 See immunotyping for further information Reviewed and signed by Rufino Huff MD, PhD 07/14/2024 Blood 07/13/2024 7:40 AM COIN TELLER 07/13/2024 8:42 AM COIN TELLER Hermelindo Butler MD LAB BLOOD ORDER ELANA Final Result Performing Organization Address [facility]/ZIP Co de Phone Number [facility] Department [place] [address] * Magnesium (07/13/2024 7:40 AM COIN TELLER) Pathologist [facility] Magnesium 2.2 1.4 - 2.5 mg/dL Blood 07/13/2024 7:40 AM COIN TELLER 07/13/2024 7:47 AM COIN TELLER us Hermelindo Butler MD LAB BLOOD ORDER ELANA Final Result Performing Organization Address [facility] de Phone Number [facility] [place] [address] * Lactate dehydrogenase (LD) (07/13/2024 7:40 AM COIN TELLER) Lactate dehydrogenase (LDH) 152 100 - 250 Units/L Blood 07/13/2024 7:40 AM COIN TELLER 07/13/2024 7:47 AM COIN TELLER us Hermelindo Butler MD LAB BLOOD ORDER ELANA Final Result Performing Organization Address [facility] Phone Number [facility] Department [place] [address] * Gamma GT (07/13/2024 7:40 AM COIN TELLER) GGT 27 10 - 50 Units/L Blood 07/13/2024 7:40 AM COIN TELLER 07/13/2024 7:47 AM COIN TELLER us Hermelindo Butler MD LAB BLOOD ORDER ELANA Final Result Performing Organization Address [facility] de Phone Number [facility] [place] [address] * (ABNORMAL) IgA (07/13/2024 7:40 AM COIN TELLER) Immunoglobulin A <50(L) 70 - 400 mg/dL Blood 07/13/2024 7:40 AM COIN TELLER 07/13/2024 7:59 AM COIN TELLER us Hermelindo Butler MD LAB BLOOD ORDER ELANA Final Result [facility] Department [place] [address] * (ABNORMAL) IgM (07/13/2024 7:40 AM COIN TELLER) [facility] Immunoglobulin M <25(L) 40 - 230 mg/dL Blood 07/13/2024 7:40 AM COIN TELLER 07/13/2024 7:59 AM COIN TELLER Hermelindo Butler MD LAB BLOOD ORDER ELANA Final Result Performing Organization Address [facility] Co de Phone Number [facility] Department [place] [address] * (ABNORMAL) IgG (07/13/2024 7:40 AM COIN TELLER) [facility] Immunoglobulin G <300(L) 700 - 1,600 mg/dL Blood 07/13/2024 7:40 AM COIN TELLER 07/13/2024 7:59 AM COIN TELLER Hermelindo Butler MD LAB BLOOD ORDER ELANA Final Result Performing Organization Address [facility] Co de Phone Number [facility] [place] [address] * (ABNORMAL) Comprehensive metabolic panel (07/13/2024 7:40 AM COIN TELLER) [facility] Sodium 144 135 - 145 mmol/L Potassium, pl 4.2 3.3 - 4.9 mmol/L [facility] Chloride 107 97 - 110 mmol/L [facility] CO2 33(H) 22 - 32 mmol/L [facility] Anion gap 4 2 - 15 mmol/L [facility] BUN 29(H) 6 - 25 mg/dL [facility] Creatinine 1.34(H) 0.80 - 1.30 mg/dL [facility] Glucose 125 70 - 199 mg/dL [facility] Comment: Interpretive Data Fasting glucose >/= 126 mg/dl is diagnostic for diabetes. Fasting is defined as no caloric intake for at least 8 hours. Fasting glucose between 100 mg/dl to 125 mg/dl is diagnostic of prediabetes. In a patient with classic symptoms of hyperglycemia or hyperglycemic crisis, a random glucose >/= 200 mg/dl is diagnostic for diabetes. In the absence of unequivocal hyperglycemia, results should be confirmed by repeat testing. The classification and Diagnosis of Diabetes Diabetes Care 2021; 46: S19-S40. Current interpretive data was last revised 2022. Calcium 9.4 8.5 - 10.3 mg/dL [facility] Bilirubin, total 0.7 0.1 - 1.2 mg/dL [facility] Protein, pl 6.2(L) 6.5 - 8.5 g/dL [facility] Albumin 4.1 3.5 - 5.0 g/dL [facility] Alk phos 65 40 - 130 Units/L [facility] ALT 18 7 - 55 Units/L [facility] AST 16 10 - 50 Units/L [facility] Blood 07/13/2024 7:40 AM COIN TELLER 07/13/2024 7:47 AM COIN TELLER Hermelindo Butler MD LAB BLOOD ORDER ELANA Final Result [facility] Department [place] [address] * aPTT (07/13/2024 7:24 AM COIN TELLER) aPTT 28 28 - 38 sec Comment: Interpretive Data Heparin therapeutic range: 66.0 - 100.0 seconds. Range based on correlation with therapeutic heparin activity range of 0.3 - 0.7 Units/mL. Current interpretive data was last revised on 2023. Blood 07/13/2024 7:24 AM COIN TELLER 07/13/2024 7:59 AM COIN TELLER Hermelindo Butler MD LAB BLOOD ORDER ELANA Final Result Performing Organization Address [facility] [place]/[facility] de Phone Number [facility] Department [place] [address] * Protime-INR (07/13/2024 7:24 AM COIN TELLER) [facility] PT 11.5 9.7 - 13.0 sec INR 1.06 0.90 - 1.20 [facility] Comment: Interpretive data Oral anticoagulant therapeutic ranges: Venous thromboembolism prophylaxis or treatment: 2.0-3.0 CARDIOLOGY Standard range: 2.0-3.0 High-intensity range: 2.5-3.5 Refer to indication-specific guidelines for appropriate target ranges for prosthetic heart valve replacement. Current interpretive data was last revised on 2019. Blood 07/13/2024 7:24 AM COIN TELLER 07/13/2024 7:59 AM COIN TELLER Hermelindo Butler MD LAB BLOOD ORDER ELANA Final Result Performing Organization Address [facility] de Phone Number [facility] Department [place] [place] [address] * Immunotyping, serum (06/22/2024 7:20 AM COIN TELLER) [facility] Immunosubtraction Please see comment Comment: NO PARAPROTEIN DETECTED Reviewed and signed by Fernando Nunez MD, PhD 06/23/2024 Blood 06/22/2024 7:20 AM COIN TELLER 06/22/2024 10:03 AM COIN TELLER Hermelindo Butler MD LAB BLOOD ORDER ELANA Final Result Performing Organization Address [facility] de Phone Number [facility] [place] [place] [address] * eGFR (06/22/2024 7:20 AM COIN TELLER) [facility] eGFR 66 >=60 mL/min/1. 73 m2 Comment: Interpretive Data Reference Interval Normal >/= 90 mL/min/1.73m2 Mildly decreased* 60 - 89 mL/min/1.73m2 Mildly to moderately decreased 45 - 59 mL/min/1.73m2 Moderately to severely decreased 30 - 44 mL/min/1.73m2 Severely decreased 15 - 29 mL/min/1.73m2 Kidney Failure < 15 mL/min/1.73m2 *Relative to young adult level Estimated glomerular filtration rate is determined by the 2020 CKD-EPI equation recommended by the National Kidney Foundation (A Unifying Approach to GFR Estimation: Recommendations of the NKF-ASK Task Force on Reassessing the Inclusion of Race in Diagnosing Kidney Disease, JASN 2020). The CKD-EPI equation should not be used for patients with unstable renal function and has not been validated in children and those over 70. Current interpretive data was last reviewed 2021. Blood 06/22/2024 7:20 AM COIN TELLER 06/22/2024 8:12 AM COIN TELLER Hermelindo Butler MD LAB BLOOD ORDER ELANA Final Result [facility] Department [place] [address] * Differential, auto (06/22/2024 7:20 AM COIN TELLER) Neutrophil abs 5.4 1.5 - 6.5 K/cumm Comment:Testing performed by : [facility], [address] [place] [phone] Lymphocyte abs 0.9 0.8 - 3.3 K/cumm [facility] Comment:Testing performed by : [facility], [address] [place] [phone] Monocyte abs 0.5 0.2 - 0.8 K/cumm [facility] Comment:Testing performed by : [facility], [address] [place] [phone] Eosinophil abs 0.2 0.0 - 0.5 K/cumm [facility] Comment:Testing performed by : [facility], [address] [place] [phone] Basophil abs 0.0 0.0 - 0.1 K/cumm [facility] Comment:Testing performed by : [facility], [address] [place] [phone] Neutrophil pct 75.7 % [facility] Comment: Interpretive Data Percent cell count reference ranges are not reported, since discordance with absolute values may lead to misinterpretation of CBC data. Current Interpretive Data was last revised on 2017. Testing performed by: [facility], [address] [place] [phone] Lymphocyte pct 13.1 % [facility] Comment: Interpretive Data Percent cell count reference ranges are not reported, since discordance with absolute values may lead to misinterpretation of CBC data. Current Interpretive Data was last revised on 2017. Testing performed by: [facility], [address] [place] [phone] Monocyte pct 7.1 % [facility] Comment: Interpretive Data Percent cell count reference ranges are not reported, since discordance with absolute values may lead to misinterpretation of CBC data. Current Interpretive Data was last revised on 2017. Testing performed by: [facility], [address] [place] [phone] Eosinophil pct 3.5 % [facility] Comment: Interpretive Data Percent cell count reference ranges are not reported, since discordance with absolute values may lead to misinterpretation of CBC data. Current Interpretive Data was last revised on 2017. Testing performed by: [facility], [address] [place] [phone] Basophil pct 0.6 % [facility] Comment: Interpretive Data Percent cell count reference ranges are not reported, since discordance with absolute values may lead to misinterpretation of CBC data. Current Interpretive Data was last revised on 2017. Testing performed by: [facility], [address] [place] [phone] Blood 06/22/2024 7:20 AM COIN TELLER 06/22/2024 8:08 AM COIN TELLER Hermelindo Butler MD LAB BLOOD ORDER ELANA Final Result [place] Aranda [facility] Department [place] [address] * (ABNORMAL) Immunoglobulin free light chains (06/22/2024 7:20 AM COIN TELLER) Pathologist [facility] [place]/Lambda ratio [facility] See Comment 0.26 - 1.65 Comment: Unable to calculate exact result. Interpretive Data The Binding Site FreeLite assay procedure was used. Results from different manufacturers or methods may not be comparable. Serial testing should be performed using the same methods and instrumentation. Current Interpretive Data was last revised on 2023. [place] free light chain [facility] <0.06(L) 0.33 - 1.94 mg/dL [facility] Comment: Interpretive Data The Binding Site FreeLite assay procedure was used. Results from different manufacturers or methods may not be comparable. Serial testing should be performed using the same methods and instrumentation. Current Interpretive Data was last revised on 2023. Lambda free light chain [facility] <0.13(L) 0.57 - 2.63 mg/dL [facility] Comment: Interpretive Data The Binding Site FreeLite assay procedure was used. Results from different manufacturers or methods may not be comparable. Serial testing should be performed using the same methods and instrumentation. Current Interpretive Data was last revised on 2023. Blood 06/22/2024 7:20 AM COIN TELLER 06/22/2024 9:53 AM COIN TELLER Hermelindo Butler MD LAB BLOOD ORDER ELANA Final Result [place] Ar[facility] Department [place] [address] * (ABNORMAL) CBC with auto differential (06/22/2024 7:20 AM COIN TELLER) Pathologist [facility] WBC 7.1 3.8 - 9.9 K/cumm Comment:Testing performed by : [facility], [address] [place] [address] Hgb 14.6 13.0 - 17.5 g/dL [facility] Comment:Testing performed by : [facility], [address] [place] [address] Hct 45.6 38.9 - 50.3 % [facility] Comment:Testing performed by : [facility], [address] [place] [address] Plt 196 150 - 400 K/cumm C[facility] Comment:Testing performed by : [facility], [address] [place] [address] MPV 8.3 6.8 - 10.4 fL C[facility] Comment:Testing performed by : [facility], [address] [place] [address] RBC 4.88 4.30 - 5.80 M/cumm C[facility] Comment:Testing performed by : [facility], [address] [place] [address] MCV 93.5 81.3 - 96.4 fL [facility] Comment:Testing performed by : [facility], [address] [place] [address] MCH 29.9 27.1 - 33.3 pg [facility] Comment:Testing performed by : [facility], [address] [place] [address] MCHC 31.9(L) 32.3 - 35.7 g/dL [facility] Comment:Testing performed by : [facility], [address] [place] [address] RDW CV 16.0(H) 11.1 - 14.9 % [facility] Comment:Testing performed by : [facility], [address] [place] [address] NRBC abs 0.20(H) 0.00 - 0.01 K/cumm [facility] Comment:Testing performed by : [facility], [address] [place] [address] Blood 06/22/2024 7:20 AM COIN TELLER 06/22/2024 8:08 AM COIN TELLER us Heremlindo Butler MD LAB BLOOD ORDER ELANA Final Result Performing Organization Address [facility] [place] [address] * aPTT (06/22/2024 7:20 AM COIN TELLER) aPTT 29 28 - 38 sec Comment: Interpretive Data Heparin therapeutic range: 66.0 - 100.0 seconds. Range based on correlation with therapeutic heparin activity range of 0.3 - 0.7 Units/mL. Current interpretive data was last revised on 2023. Blood 06/22/2024 7:20 AM COIN TELLER 06/22/2024 9:50 AM COIN TELLER Hermelindo Butler MD LAB BLOOD ORDER ELANA Final Result Performing Organization Address [facility] [place] [address] * Protime-INR (06/22/2024 7:20 AM COIN TELLER) PT 10.9 9.7 - 13.0 sec INR 1.01 0.90 - 1.20 [facility] Comment: Interpretive data Oral anticoagulant therapeutic ranges: Venous thromboembolism prophylaxis or treatment: 2.0-3.0 CARDIOLOGY Standard range: 2.0-3.0 High-intensity range: 2.5-3.5 Refer to indication-specific guidelines for appropriate target ranges for prosthetic heart valve replacement. Current interpretive data was last revised on 2019. Blood 06/22/2024 7:20 AM COIN TELLER 06/22/2024 9:50 AM COIN TELLER us Hermelindo Butler MD LAB BLOOD ORDER ELANA Final Result Performing Organization Address [facility] de Phone Number [facility] Department [place] [address] * (ABNORMAL) Protein electrophoresis with reflex, serum (06/22/2024 7:20 AM COIN TELLER) Protein, sr 5.9(L) 6.2 - 8.2 g/dL Albumin 3.7 3.2 - 5.0 g/dL [facility] Alpha-1 globulin 0.3 0.2 - 0.4 g/dL [facility] Alpha-2 globulin 0.7 0.5 - 1.0 g/dL [facility] Beta-1 globulin 0.5 0.3 - 0.6 g/dL [facility] Beta-2 globulin 0.3 0.2 - 0.6 g/dL [facility] Gamma globulin 0.4(L) 0.5 - 1.7 g/dL [facility] SPEP interp Please see comment [facility] Comment: No apparent monoclonal peak Decreased gamma globulins Electrophoretic pattern appears similar to previous sample 05-19-24 See immunotyping for further information Reviewed and signed by Fernando Nunez MD, PhD 06/23/2024 Immunotyping See Immunotyping Results [facility] Blood 06/22/2024 7:20 AM COIN TELLER 06/22/2024 9:55 AM COIN TELLER us Hermelindo Butler MD LAB BLOOD ORDER ELANA Final Result Performing Organization Address [facility] de Phone Number MT [facility] Department [place] [address] * Magnesium (06/22/2024 7:20 AM COIN TELLER) Pathologist [facility] Magnesium 2.2 1.4 - 2.5 mg/dL Blood 06/22/2024 7:20 AM COIN TELLER 06/22/2024 8:12 AM COIN TELLER Hermelindo Butler MD LAB BLOOD ORDER ELANA Final Result Performing Organization Address [facility] de Phone Number [facility] [place] [address] * Lactate dehydrogenase (LD) (06/22/2024 7:20 AM COIN TELLER) Lactate dehydrogenase (LDH) 157 100 - 250 Units/L Blood 06/22/2024 7:20 AM COIN TELLER 06/22/2024 8:12 AM COIN TELLER Hermelindo Butler MD LAB BLOOD ORDER ELANA Final Result Performing Organization Address [facility] de Phone Number [facility] [place] [address] * Gamma GT (06/22/2024 7:20 AM COIN TELLER) Pathologist [facility] GGT 30 10 - 50 Units/L Blood 06/22/2024 7:20 AM COIN TELLER 06/22/2024 8:12 AM COIN TELLER Hermelindo Butler MD LAB BLOOD ORDER ELANA Final Result Performing Organization Address [facility] de Phone Number [facility] Department [place] [employer] [place] [address] * (ABNORMAL) IgA (06/22/2024 7:20 AM COIN TELLER) Pathologist [facility] Immunoglobulin A <50(L) 70 - 400 mg/dL Blood 06/22/2024 7:20 AM COIN TELLER 06/22/2024 9:49 AM COIN TELLER Hermelindo Butler MD LAB BLOOD ORDER ELANA Final Result Performing Organization Address City/[facility] de Phone Number [facility] [place] [address] * (ABNORMAL) IgM (06/22/2024 7:20 AM COIN TELLER) [facility] Immunoglobulin M <25(L) 40 - 230 mg/dL Blood 06/22/2024 7:20 AM COIN TELLER 06/22/2024 9:49 AM COIN TELLER Hermelindo Butler MD LAB BLOOD ORDER ELANA Final Result Performing Organization Address City/[facility]/ZIP Co de Phone Number [facility] Department [place] [address] * (ABNORMAL) IgG (06/22/2024 7:20 AM COIN TELLER) [facility] Immunoglobulin G 423(L) 700 - 1,600 mg/dL Blood 06/22/2024 7:20 AM COIN TELLER 06/22/2024 9:49 AM COIN TELLER Hermelindo Butler MD LAB BLOOD ORDER ELANA Final Result Performing Organization Address City/[facility] de Phone Number [facility] Department [place] [address] * (ABNORMAL) Comprehensive metabolic panel (06/22/2024 7:20 AM COIN TELLER) [facility] Sodium 141 135 - 145 mmol/L Potassium, pl 4.1 3.3 - 4.9 mmol/L [facility] Chloride 104 97 - 110 mmol/L [facility] CO2 31 22 - 32 mmol/L [facility] Anion gap 6 2 - 15 mmol/L [facility] BUN 24 6 - 25 mg/dL [facility] Creatinine 1.18 0.80 - 1.30 mg/dL [facility] Glucose 111 70 - 199 mg/dL [facility] Comment: Interpretive Data Fasting glucose >/= 126 mg/dl is diagnostic for diabetes. Fasting is defined as no caloric intake for at least 8 hours. Fasting glucose between 100 mg/dl to 125 mg/dl is diagnostic of prediabetes. In a patient with classic symptoms of hyperglycemia or hyperglycemic crisis, a random glucose >/= 200 mg/dl is diagnostic for diabetes. In the absence of unequivocal hyperglycemia, results should be confirmed by repeat testing. The classification and Diagnosis of Diabetes Diabetes Care 202; 46: S19-S40. Current interpretive data was last revised 2022. Calcium 9.5 8.5 - 10.3 mg/dL [facility] Bilirubin, total 0.7 0.1 - 1.2 mg/dL [facility] Protein, pl 6.3(L) 6.5 - 8.5 g/dL [facility] Albumin 3.8 3.5 - 5.0 g/dL [facility] Alk phos 63 40 - 130 Units/L [facility] ALT 18 7 - 55 Units/L [facility] AST 20 10 - 50 Units/L [facility] Blood 06/22/2024 7:20 AM COIN TELLER 06/22/2024 8:12 AM COIN TELLER Hermelindo Butler MD LAB BLOOD ORDER ELANA Final Result Performing Organization Address [facility] de Phone Number [facility] Department [place] [address] * Hepatitis C antibody (10/16/2021 9:50 AM CDT) Pathologist [facility] Hep C Ab Nonreactive Nonreactive [facility] Comment:Antibodies to HCV no t detected. Does NOT exclude the possibility of recent exposure to HCV. Blood 10/16/2021 9:50 AM CDT 10/16/2021 11:22 AM CDT Hermelindo dupree MD LAB MICROBIOLOGY - GENERAL ORDERABLES Edited Result - Final Performing Organization Address [facility] de Phone Number [facility] Department [place] [employer] [place] [address] from Last 3 Months or Most Recently Relevant to Health Maintenance Insurance MEDICARE [employer] SENIOR SUPPLEMENT MEDICARE AET[employer] SENIOR SUPPLEMENT MEDICARE AET[employer] SENIOR SUPPLEMENT Advance Directives For more information, please contact: [phone] Documents on File Type Date Recorded 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 11/29/2017 11:05 AM FOX R OF SILO ERECTOR ADVANCE DIRECTIVE 11/12/2017 3:59 PM POWER OF SILO ERECTOR * Full Code (Latest Code Status on File) Date Activated Date Inactivated Comments 09/08/2023 8:42 AM 09/09/2023 4:45 AM * Full Code Date Activated Date Inactivated Comments 10/28/2021 5:30 PM 11/01/2021 3:39 PM * Full Code Date Activated Date Inactivated Comments 05/30/2021 2:28 PM 05/31/2021 2:39 PM * Full Code Date Activated Date Inactivated Comments 05/30/2021 9:21 AM 05/30/2021 1:44 PM * Full Code Date Activated Date Inactivated Comments 12/01/2017 12:02 AM 01/06/2018 2:58 PM Care Teams Manager Integrated Relationship Specialty Start Date End Date Jatin Gamble MD [address] [place] [address] PCP - General 10/07/16 Hermelindo Butler MD [address] [place] [address] Medical Oncologist/Hematologi Medical Oncology 12/02/17 Roberto Rojo MD [address] [place] [address] Medical Oncologist/Hematologunm [facility] Hematology and Oncology 12/02/17 Jatin Gamble MD [address] [place] [address] Referring Physician Internal Medicine 12/02/17 Lyndsey Fagan NP [address] [place] [address] Nurse Practitioner Medical Oncology 08/03/20 Erlin Servin MD [address] [place] [address] Consulting Physician Otolaryngology 10/04/22 [place] [address] [place] [address] Consulting Physician Urology 05/28/23
--- OUTSIDE RECORDS SUMMARY | 2024-08-20 07:17 | XMS_ITS | Referral Summary ---
Author Organization [facility] Address [address] [place] [address] Care Team Providers Care Master Machinist Name Role Phone Jatin Gamble MD Primary Care Provider [phone] Hermelindo Butler MD Unavailable Roberto Rojo MD Unavailable [phone] Jatin Gamble MD Unavailable [phone] Lyndsey Fagan NP Unavailable [phone] Erlin Servin MD Unavailable [phone] Julian Valdez MD Unavailable [phone] Encounters Date Type Department Care Team Description 08/10/2024 Orders Only [facility] ONCOLOGY Scanning, Provider 08/06/2024 Telephone [facility] Bone Marrow Transplant [address] [facility] [address] [place] [address] Lyndsey Fagan NP 08/06/2024 Orders Only [facility] Bone [facility]row Transplant [address] [facility] [address] [place] [address] Lyndsey Fagan NP Multiple myeloma, remission status unspecified (HCC) (Primary Dx) 08/06/2024 1:45 PM BARREL COATER Clinical Support [facility] - Lab Collection [address] [facility] [address] [place] [address] 08/06/2024 1:00 PM BARREL COATER - 08/06/2024 11:59 PM BARREL COATER Hospital Encounter [facility] 1 [place] [address] Multiple myeloma, remission status unspecified (HCC) Discharge Disposition: Discharge to home or self care 08/06/2024 Orders Only [facility] Bone Marrow Transplant [address] [facility] Floor 6 [place] [address] Lyndsey Fagan NP JOHN (acute kidney injury) (Primary Dx) 08/06/2024 Orders Only [facility] Bone [facility]row Transplant [address] [facility] Floor 6 [place] [address] Hermelindo Hill MD Multiple myeloma, remission status unspecified (HCC) (Primary Dx) 08/06/2024 7:15 AM BARREL COATER Clinical Support [facility] - Lab Collection [facility] [address] [place] [address] Multiple myeloma in relapse (HCC) (Primary Dx); Multiple myeloma, remission status unspecified (HCC); JOHN (acute kidney injury) 08/06/2024 8:00 AM BARREL COATER Infusion [facility] - Infusion [address] [place] [address] Multiple myeloma not having achieved remission (HCC) (Primary Dx); Hypogammaglobulinem ia 08/03/2024 Orders Only [facility] Bone Marrow Transplant [facility] [address] [address] Hermelindo Hill MD 08/03/2024 Orders Only [facility] Bone Marrow Transplant [address] [address] Hermelindo Hill MD 08/03/2024 Orders Only [facility] Bone Marrow Transplant [facility] [address] [address] Hermelindo Hill MD 08/03/2024 9:30 AM BARREL COATER Infusion [facility] - Infusion [address] Floor [address] [place] [address] Multiple myeloma in relapse (HCC) (Primary Dx); Multiple myeloma in remission (HCC) 08/03/2024 7:30 AM BARREL COATER Clinical Support [facility] - Lab Collection [address] [place] [address] 6 [place] [address] Multiple myeloma in remission (HCC); Multiple myeloma, remission status unspecified (HCC); Multiple myeloma in relapse (HCC) 08/03/2024 8:30 AM BARREL COATER Office Visit [facility] Bone Marrow Transplant [address] [place] [phone] Hermelindo Hill MD Multiple myeloma, remission status unspecified (HCC) (Primary Dx); Multiple myeloma in remission (HCC); Multiple myeloma in relapse (HCC) 08/02/2024 Telephone [facility] Bone Marrow Transplant [address] [place] [address] Lyndsey Fagan NP 07/30/2024 Telephone [facility] Bone Marrow Transplant [address] [place] [phone] Hermelindo Hill MD 07/27/2024 Telephone [facility] Bone Marrow Transplant [address] [place] [phone] Hermelindo Hill MD 07/26/2024 Orders Only [facility] Bone Marrow Transplant [address] [place] [phone] Hermelindo Hill MD 07/26/2024 Orders Only [facility] Bone Marrow Transplant [address] [place] [phone] Hermelindo Hill MD 07/26/2024 Telephone [facility] Bone Marrow Transplant [address] [place] [phone] Margaret Kay RMA Medical Question/Miscellane ous 07/13/2024 Telephone [facility] Bone Marrow Transplant [address] [place] [phone] Fadumo Tobar RN 07/13/2024 10:00 AM BARREL COATER Infusion [facility] - Infusion [address] [place] [address] Multiple myeloma in relapse (HCC) (Primary Dx); Multiple myeloma in remission (HCC) 07/13/2024 8:00 AM BARREL COATER Clinical Support [facility] - Lab Collection [address] Floor 6 [place] [address] Multiple myeloma in remission (HCC); Multiple myeloma in relapse (HCC); Multiple myeloma, remission status unspecified (HCC) 07/13/2024 9:00 AM BARREL COATER Office Visit [facility] Bone Marrow Transplant [facility] [facility] Floor [address] [place] [address] Hermelindo Hill MD Multiple myeloma, remission status unspecified (HCC) (Primary Dx); Multiple myeloma in remission (HCC); Hypogammaglobulinem ia 06/22/2024 Orders Only [facility] Bone Marrow Transplant [address] [facility] Floor 6 [place] [address] Hermelindo Hill MD 06/22/2024 Orders Only [facility] Bone Marrow Transplant [facility] Floor [address] [place] [address] Hermelindo Hill MD Multiple myeloma in remission (HCC) (Primary Dx); Multiple myeloma in relapse (HCC) 06/22/2024 8:30 AM BARREL COATER Infusion [facility] - Infusion [address] [place] [address] Multiple myeloma, remission status unspecified (HCC) (Primary Dx); Multiple myeloma in remission (HCC); Multiple myeloma in relapse (HCC) 06/22/2024 7:00 AM BARREL COATER Clinical Support [facility] - Lab Collection [address] [place] [address] Multiple myeloma, remission status unspecified (HCC); Multiple myeloma in relapse (HCC) 06/22/2024 8:00 AM BARREL COATER Office Visit [facility] Bone Marrow Transplant [facility] Floor [address] [place] [address] Hermelindo Hill MD Multiple myeloma in relapse (HCC) (Primary Dx); Multiple myeloma, remission status unspecified (HCC); Hypogammaglobulinem ia; Obesity, morbid (HCC) 06/14/2024 Telephone [facility] Bone Marrow Transplant [address] [address] Kay ShalondaNAHUN Samayoa Reschedule from Last 3 Months Allergies Active Allergy Reactions Criticality Noted Date [...] MM Floor 9800 Treatment Plan Clinical Trial [id number] Dougebelisha Reason for Admission Study chemo C1D1 Transplant/IEC Planning BMT/IEC Plan HLA typing/IDMs Insurance Approvals/Issues Discharge Planning Anticipated Discharge Date 11/01 Patient Education Completed Issue to be Resolved Before Discharge Discharge Disposition Home Requests Sent to Case Management and/or Medical Assistants Post-Discharge Follow-Up Living Situation/Distance from [place], [place] (45 min) Caregiver Self, Lab/Transfusion Frequency [...] is a risk of orbital injury and HYDRO PLANT SITE MANAGER injury which could result in blindness or [...] this. Assessment & Plan (07/09/2022 7:42 PM BARREL COATER): I talked with him quite a bit [...] weeks. Assessment & Plan (05/26/2022 4:16 PM BARREL COATER): He does have pretty significant sinusitis and [...] day. Assessment & Plan (05/26/2022 4:17 PM BARREL COATER): It is very possible that his cough could be due to sinusitis also. Hopefully that will continue to improve as we treat. He understands. Immunocompromised 11/13/2021 Multiple myeloma not having achieved remission 0 10/28/2021 Cancer Staging:Clinical stage from 10/16/2021:RISS Stage II(Zymj-0-zyoystqzqkepc (mg/L): 3.7, Albumin (g/dL): 4.2, ISS: Stage [...] he got a TTE on 10/19 at [facility] however unclear why not currently in the system - May need to repeat TTE prior to treatment if results unavailable - Continue OI ppx with acyclovir 400mg BID - Begin trial [id number], a Bispecific Antibody Targeting BCMA treatment - [...] he got a TTE on 10/19 at [facility] however unclear why not currently in the system - May need to repeat TTE prior to treatment if results unavailable - Continue OI ppx with acyclovir 400mg BID - Begin trial [id number], a Bispecific Antibody Targeting BCMA treatment - [...] BID Assessment & Plan (05/31/2021 10:51 AM BARREL COATER): Continue home pepcid, asx Renal mass 05/30/2021 Assessment & Plan (05/31/2021 10:51 AM BARREL COATER): Admitted for observation after L renal mass [...] 07/17/2023 Assessment & Plan (05/31/2021 10:52 AM BARREL COATER): Follows with oncology on daratumumab monotherapy -counts [...] blood in urine Follow up pathology from [id number] high-grade papillary urothelial carcinoma (grade 2) --follow [...] --Chronic back pain prn oxy ---on hold 22 confusion--resumed now that confusion resolved --Acute confusion [...] blood in urine Follow up pathology from [id number]-[id number]-zkvxwxtp high-grade papillary urothelial carcinoma (grade 2) --follow [...] supplementation Assessment & Plan (05/31/2021 10:51 AM BARREL COATER): Stable on home losartan, nebivolol, triamterene-HCTZ Secondary [...] Lasix for suspected FOL, has peripheral edema Immunizations Immunization Administration Dates Next Due Influenza, [...] 01/31/2024 Tdap 06/21/2023,12/09/2011 ZOSTER Recombinant 08/15/2018,05/30/2018, 018 Social History Tobacco Use Types Packs/Day Years [...] on file Legal Sex 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 BARREL COATER Gender Identity Not on file Sexual Orientation Not on file Last Filed Vital Signs Vital Sign Reading Time Taken Comments Blood Pressure 157/83 08/06/2024 8:02 AM BARREL COATER Pulse 63 08/06/2024 8:02 AM BARREL COATER Temperature 37 C (98.6 F) 08/06/2024 8:02 AM BARREL COATER Respiratory Rate 18 08/06/2024 8:02 AM BARREL COATER Oxygen Saturation 99% 08/06/2024 8:02 AM BARREL COATER Inhaled Oxygen Concentration - - Weight 127.4 kg (280 lb 13.9 oz) 08/06/2024 8:02 AM BARREL COATER Height 175.3 cm (5' 9 ) 05/18/2024 8:28 AM BARREL COATER Body Mass Index 41.48 05/18/2024 8:28 AM BARREL COATER Plan of Treatment Not on file Medical Devices Implanted Type Area Wardrobe Attendant Device Identifier Shelf Expiration Date Model / Serial / Lot Other - See Comments Other - see comments Right: Chest Wall Description:Upon arrival to IR, not accessed Procedures Procedure Name Priority Date/Time Associated Diagnosis Comments SCAN - LABS 08/10/2024 KIDNEY COMPLETE Schedule Routine, Read Routine (OP Routine) 08/06/2024 2:42 PM BARREL COATER Multiple myeloma, remission status unspecified (HCC) URINALYSIS, MICROSCOPIC ONLY Routine 08/06/2024 9:19 AM BARREL COATER JOHN (acute kidney injury) PROTEIN / CREATININE RATIO, URINE, RANDOM Routine 08/06/2024 9:19 AM BARREL COATER JOHN (acute kidney injury) URINALYSIS AND REFLEX TO MICROSCOPIC Routine 08/06/2024 9:19 AM BARREL COATER JOHN (acute kidney injury) EGFR Routine 08/06/2024 7:43 AM BARREL COATER Multiple myeloma, remission status unspecified (HCC) DIFFERENTIAL AUTO Routine 08/06/2024 7:4 3 AM BARREL COATER Multiple myeloma, remission status unspecified (HCC) LACTATE DEHYDROGENASE Routine 08/06/2024 7:43 AM BARREL COATER Multiple myeloma, remission status unspecified (HCC) CBC WITH AUTO DIFFERENTIAL Routine 08/06/2024 7:43 AM BARREL COATER Multiple myeloma, remission status unspecified (HCC) COMPREHENSIVE METABOLIC PANEL Routine 08/06/2024 7:43 AM BARREL COATER Multiple myeloma, remission status unspecified (HCC) LIPID PANEL Routine 08/06/2024 7:43 AM BARREL COATER Multiple myeloma, remission status unspecified (HCC) PSA DIAGNOSTIC Routine 08/06/2024 7:43 AM BARREL COATER Multiple myeloma, remission status unspecified (HCC) PROTIME-INR STAT 08/03/2024 9:21 AM BARREL COATER Multiple myeloma in relapse (HCC) APTT STAT 08/03/2024 9:21 AM BARREL COATER Multiple myeloma in relapse (HCC) MAGNESIUM STAT 08/03/2024 7:40 AM BARREL COATER Multiple myeloma in relapse (HCC) GAMMA GT STAT 08/03/2024 7:40 AM BARREL COATER Multiple myeloma in relapse (HCC) EGFR Routine 08/03/2024 7:40 AM BARREL COATER Multiple myeloma, remission status unspecified (HCC) DIFFERENTIAL AUTO Routine 08/03/2024 7:4 0 AM BARREL COATER Multiple myeloma, remission status unspecified (HCC) CBC WITH AUTO DIFFERENTIAL Routine 08/03/2024 7:40 AM BARREL COATER Multiple myeloma, remission status unspecified (HCC) COMPREHENSIVE METABOLIC PANEL Routine 08/03/2024 7:40 AM BARREL COATER Multiple myeloma, remission status unspecified (HCC) IGA Routine 08/03/2024 7:40 AM BARREL COATER Multiple myeloma, remission status unspecified (HCC) IGG Routine 08/03/2024 7:40 AM BARREL COATER Multiple myeloma, remission status unspecified (HCC) IGM Routine 08/03/2024 7:40 AM BARREL COATER Multiple myeloma, remission status unspecified (HCC) IMMUNOGLOBULIN FREE LIGHT CHAINS Routine 08/03/2024 7:40 AM BARREL COATER Multiple myeloma, remission status unspecified (HCC) LACTATE DEHYDROGENASE Routine 08/03/2024 7:40 AM BARREL COATER Multiple myeloma, remission status unspecified (HCC) PROTEIN ELECTROPHORESIS, WITH REFLEX, SERUM Routine 08/03/2024 7:40 AM BARREL COATER Multiple myeloma, remission status unspecified (HCC) IMMUNOTYPING Routine 08/03/2024 7:40 AM BARREL COATER Multiple myeloma, remission status unspecified (HCC) HEMOGLOBIN A1C Routine 08/03/2024 7:40 AM BARREL COATER Multiple myeloma, remission status unspecified (HCC) URINALYSIS, MICROSCOPIC ONLY Routine 08/03/2024 7:30 AM BARREL COATER Multiple myeloma, remission status unspecified (HCC) URINE CULTURE Routine 08/03/2024 7:30 AM BARREL COATER URINALYSIS AND REFLEX TO MICROSCOPIC AND CULTURE Routine 08/03/2024 7:30 AM BARREL COATER Multiple myeloma, remission status unspecified (HCC) EGFR STAT 07/13/2024 7:40 AM BARREL COATER Multiple myeloma in relapse (HCC) DIFFERENTIAL AUTO STAT 07/13/2024 7:4 0 AM BARREL COATER Multiple myeloma in relapse (HCC) IGA Routine 07/13/2024 7:40 AM BARREL COATER Multiple myeloma, remission status unspecified (HCC) IGG Routine 07/13/2024 7:40 AM BARREL COATER Multiple myeloma, remission status unspecified (HCC) IGM Routine 07/13/2024 7:40 AM BARREL COATER Multiple myeloma, remission status unspecified (HCC) IMMUNOGLOBULIN FREE LIGHT CHAINS Routine 07/13/2024 7:40 AM BARREL COATER Multiple myeloma, remission status unspecified (HCC) PROTEIN ELECTROPHORESIS, WITH REFLEX, SERUM Routine 07/13/2024 7:40 AM BARREL COATER Multiple myeloma, remission status unspecified (HCC) IMMUNOTYPING Routine 07/13/2024 7:40 AM BARREL COATER Multiple myeloma, remission status unspecified (HCC) LACTATE DEHYDROGENASE Routine 07/13/2024 7:40 AM BARREL COATER Multiple myeloma in relapse (HCC) GAMMA GT STAT 07/13/2024 7:40 AM BARREL COATER Multiple myeloma in relapse (HCC) MAGNESIUM STAT 07/13/2024 7:40 AM BARREL COATER Multiple myeloma in relapse (HCC) COMPREHENSIVE METABOLIC PANEL STAT 07/13/2024 7:40 AM BARREL COATER Multiple myeloma in relapse (HCC) CBC WITH AUTO DIFFERENTIAL STAT 07/13/2024 7:40 AM BARREL COATER Multiple myeloma in relapse (HCC) APTT STAT 07/13/2024 7:24 AM BARREL COATER Multiple myeloma in relapse (HCC) PROTIME-INR STAT 07/13/2024 7:24 AM BARREL COATER Multiple myeloma in relapse (HCC) IMMUNOTYPING Routine 06/22/2024 7:20 AM BARREL COATER Multiple myeloma, remission status unspecified (HCC) EGFR Routine 06/22/2024 7:20 AM BARREL COATER Multiple myeloma, remission status unspecified (HCC) DIFFERENTIAL AUTO Routine 06/22/2024 7:2 0 AM BARREL COATER Multiple myeloma, remission status unspecified (HCC) CBC WITH AUTO DIFFERENTIAL Routine 06/22/2024 7:20 AM BARREL COATER Multiple myeloma, remission status unspecified (HCC) COMPREHENSIVE METABOLIC PANEL Routine 06/22/2024 7:20 AM BARREL COATER Multiple myeloma, remission status unspecified (HCC) IGA Routine 06/22/2024 7:20 AM BARREL COATER Multiple myeloma, remission status unspecified (HCC) IGG Routine 06/22/2024 7:20 AM BARREL COATER Multiple myeloma, remission status unspecified (HCC) IGM Routine 06/22/2024 7:20 AM BARREL COATER Multiple myeloma, remission status unspecified (HCC) IMMUNOGLOBULIN FREE LIGHT CHAINS Routine 06/22/2024 7:20 AM BARREL COATER Multiple myeloma, remission status unspecified (HCC) LACTATE DEHYDROGENASE Routine 06/22/2024 7:20 AM BARREL COATER Multiple myeloma, remission status unspecified (HCC) PROTEIN ELECTROPHORESIS, WITH REFLEX, SERUM Routine 06/22/2024 7:20 AM BARREL COATER Multiple myeloma, remission status unspecified (HCC) MAGNESIUM STAT 06/22/2024 7:20 AM BARREL COATER Multiple myeloma in relapse (HCC) GAMMA GT STAT 06/22/2024 7:20 AM BARREL COATER Multiple myeloma in relapse (HCC) PROTIME-INR STAT 06/22/2024 7:20 AM BARREL COATER Multiple myeloma in relapse (HCC) APTT STAT 06/22/2024 7:20 AM BARREL COATER Multiple myeloma in relapse (HCC) HEPATITIS C ANTIBODY STAT 10/16/2021 9:50 AM CDT Multiple myeloma in relapse (HCC) from Last 3 Months or Most Recently Relevant to Health Maintenance Results * SCAN - LABS (08/10/2024) us Provider Scanning Final Result * US Kidney Complete (08/06/2024 2:42 PM BARREL COATER) Anatomical Region Laterality Modality Kidney N/A Ultrasound 08/06/2024 3:27 PM BARREL COATER Impressions 08/06/2024 3:27 PM BARREL COATER 1. Mild nephromegaly with mild to moderate hydronephrosis bilaterally. 2. Incomplete bladder emptying with post void bladder residual of 397 mL. Electronically signed by: Dylan Tinajero M.D. Narrative 08/06/2024 3:27 PM BARREL COATER EXAMINATION: COMPLETE RENAL SONOGRAM HISTORY: Rising creatinine. [...] by: Dylan Tinajero M.D. Hermelindo Butler MD [facility] PROCEDUR ES Final Result * (ABNORMAL) Urinalysis reflex to microscopic (08/06/2024 9:19 AM BARREL COATER) Color, ur Straw Yellow Clarity, ur Clear Clear [facility] Specific gravity, ur 1.013 1.003 - 1.030 [facility] pH, urine 5.5 [facility] Comment: Interpretive Data U rine pH is affected by diet, medications, systemic acid-base disturbances, and renal tubular function. pH may affect urinary stone formation. For example, urine pH below 6.0 may help reduce the tendency for calcium phosphate stones and pH greater than 6.0 may reduce the tendency for uric acid stone formation. Source: [facility] Current Interpretive Data was last revised on 2017 Protein, ur ql Negative Negative [facility] Glucose, ur ql Negative Negative [facility] Ketones, ur Negative Negative [facility] Bilirubin, ur Negative Negative [facility] Blood, ur 3+(A) Negative [facility] Urobilinogen, ur <2.0 <2.0 mg/dL [facility] Nitrite, ur Negative Negative [facility] Leukocyte esterase, ur Trace(A) [facility] UA reflex comment Reflex to microscopic UA will be performed. [facility] Urine 08/06/2024 9:19 AM BARREL COATER 08/06/2024 9:19 AM BARREL COATER Lyndsey Fagan LAB URINE ORDERABLES Angeles l Result Performing Organization Address [facility] de Phone Number [facility] [place] [address] * Protein / creatinine ratio, urine, random (08/06/2024 9:19 AM BARREL COATER) Protein, ur, quant 7.9 mg/dL Comment: Interpretive Data No reference range established. Current interpretive data was last revised 2018. Creatinine Ur 77.4 mg/dL [facility] Comment: Interpretive Data No reference range established. Current interpretive data was last revised 2018. Protein/creatinin e ratio 102.1 0.0 - 180.0 mg/g CR [facility] Urine 08/06/2024 9:19 AM BARREL COATER 08/06/2024 9:41 AM BARREL COATER Lyndsey Fagan NP LAB URINE ORDERABLES Angeles l Result Performing Organization Address [facility] de Phone Number [facility] [place] [address] * (ABNORMAL) Urinalysis, microscopic only (08/06/2024 9:19 AM BARREL COATER) WBC, ur 6-10(A) 0 - 5 /HPF RBC, ur 21-50(A) 0 - 2 /HPF [facility] Bacteria, ur Trace(A) [facility] Mucous, ur Present(A) [facility] Urine 08/06/2024 9:19 AM BARREL COATER 08/06/2024 9:19 AM BARREL COATER Lyndsey Fagan NP LAB URINE ORDERABLES Angeles l Result [facility] Department [place] [employer] [place] [address] * (ABNORMAL) eGFR (08/06/2024 7:43 AM BARREL COATER) Pathologist [facility] eGFR 31(L) >=60 mL/min/1. 73 m2 Comment: [...] last reviewed 2021. Blood 08/06/2024 7:43 AM BARREL COATER 08/06/2024 7:52 AM BARREL COATER us Hermelindo Butler MD LAB BLOOD ORDER ELANA Final Result Performing Organization Address City/[facility]/ZIP Co de Phone Number [facility] Department [place] [address] * (ABNORMAL) Differential, auto (08/06/2024 7:43 AM BARREL COATER) Neutrophil abs 5.4 1.5 - 6.5 K/cumm Comment:Testing performed by : [facility], [address] [place] [address] Lymphocyte abs 0.8 0.8 - 3.3 K/cumm [facility] Comment:Testing performed by : [facility], [address] [place] [address] Monocyte abs 0.5 0.2 - 0.8 K/cumm [facility] Comment:Testing performed by : [facility], [address] [place] [address] Eosinophil abs 0.7(H) 0.0 - 0.5 K/cumm [facility] Comment:Testing performed by : [facility], [address] [place] [address] Basophil abs 0.0 0.0 - 0.1 K/cumm [facility] Comment:Testing performed by : [facility], [address] [place] [phone] Neutrophil pct 72.4 % [facility] Comment: Interpretive Data Percent cell count reference ranges are not reported, since discordance with absolute values may lead to misinterpretation of CBC data. Current Interpretive Data was last revised on 2017. Testing performed by: [facility], [address] [place] [phone] Lymphocyte pct 10.4 % [facility] Comment: Interpretive Data Percent cell count reference ranges are not reported, since discordance with absolute values may lead to misinterpretation of CBC data. Current Interpretive Data was last revised on 2017. Testing performed by: [facility], [address] [place], [place] [phone] Monocyte pct 7.3 % [facility] Comment: Interpretive Data Percent cell count reference ranges are not reported, since discordance with absolute values may lead to misinterpretation of CBC data. Current Interpretive Data was last revised on 2017. Testing performed by: [facility], [address] [place] [phone] Eosinophil pct 9.4 % [facility] Comment: Interpretive Data Percent cell count reference ranges are not reported, since discordance with absolute values may lead to misinterpretation of CBC data. Current Interpretive Data was last revised on 2017. Testing performed by: [facility], [address] [place] [phone] Basophil pct 0.5 % [facility] Comment: Interpretive Data Percent cell count reference ranges are not reported, since discordance with absolute values may lead to misinterpretation of CBC data. Current Interpretive Data was last revised on 2017. Testing performed by: [facility], [address] [place] [address] Blood 08/06/2024 7:43 AM BARREL COATER 08/06/2024 7:51 AM BARREL COATER Hermelindo Butler MD LAB BLOOD ORDER ELANA Final Result [facility] Department of Laboratories [place], [place] [id number] * (ABNORMAL) CBC with auto differential (08/06/2024 7:43 AM BARREL COATER) WBC 7.5 3.8 - 9.9 K/cumm Comment:Testing performed by : [facility], [address] [place] [address] Hgb 13.7 13.0 - 17.5 g/dL MT [facility] Comment:Testing performed by : [facility], [address] [place] [address] Hct 40.6 38.9 - 50.3 % MT [facility]Z Comment:Testing performed by : [facility], [address] [place] [address] Plt 169 150 - 400 K/cumm MT [facility] Comment:Testing performed by : [facility], [address] [place] [phone] MPV 7.5 6.8 - 10.4 fL MT [facility] Comment:Testing performed by : [facility], [address] [place], [place] [id number] RBC 4.37 4.30 - 5.80 M/cumm MT [facility] Comment:Testing performed by : [facility], [address] [place], [place] [id number] MCV 92.7 81.3 - 96.4 fL MT [facility] Comment:Testing performed by : [facility], [address] [place], [place] [id number] MCH 31.3 27.1 - 33.3 pg MT [facility] Comment:Testing performed by : [facility], [address] [place], [place] [id number] MCHC 33.8 32.3 - 35.7 g/dL MT [facility] Comment:Testing performed by : [facility], [address] [place], [place] [id number] RDW CV 16.5(H) 11.1 - 14.9 % MT [facility] Comment:Testing performed by : [facility], [address] [place] [address] NRBC abs 0.00 0.00 - 0.01 K/cumm MT [facility] Comment:Testing performed by : [facility], [address] [place] [address] Blood 08/06/2024 7:43 AM BARREL COATER 08/06/2024 7:51 AM BARREL COATER us Hermelindo Butler MD LAB BLOOD ORDER ELANA Final Result [facility] Department [place] [address] * (ABNORMAL) PSA diagnostic (08/06/2024 7:43 AM BARREL COATER) PSA-Total 6.28(H) <=6.20 ng/mL Comment: Interpretive Data [...] last revised 21. Blood 08/06/2024 7:43 AM BARREL COATER 08/06/2024 7:52 AM BARREL COATER Hermleindo Butler MD LAB BLOOD ORDER ELANA Final Result Performing Organization Address [facility] Co de Phone Number [facility] Department [place] [address] * Lactate dehydrogenase (LD) (08/06/2024 7:43 AM BARREL COATER) Lactate dehydrogenase (LDH) 161 100 - 250 Units/L Blood 08/06/2024 7:43 AM BARREL COATER 08/06/2024 7:52 AM BARREL COATER Hermelindo Butler MD LAB BLOOD ORDER ELANA Final Result Performing Organization Address City/[facility] de Phone Number [facility] Department [place] [address] * (ABNORMAL) Lipid panel (08/06/2024 7:43 AM BARREL COATER) Cholesterol 128 30 - 199 mg/dL Comment: [...] revised on 2018. Triglycerides 149 <=149 mg/dL [facility] Comment: Interpretive Data [...] revised on 2018. HDL 38(L) >=40 mg/dL [facility] Comment: Interpretive Data [...] on 2018. LDL, calculated 64 <=129 mg/dL [facility] Comment: Interpretive Data [...] 2. NCEP Expert Panel. Circulation 2004;110:227 3. Lius Nielsen et al. NATALIIA Cardiol. 2019October 07;5(5):540548. doi: 10.1001/jamacardio.2020.0013 Current Interpretive Data was last [...] [facility] Blood 08/06/2024 7:43 AM BARREL COATER 08/06/2024 7:52 AM BARREL COATER Hermelindo Butler MD LAB BLOOD ORDER ELANA Final Result [facility] Department [place] [address] * (ABNORMAL) Comprehensive metabolic panel (08/06/2024 7:43 AM BARREL COATER) Sodium 145 135 - 145 mmol/L Potassium, [...] 2022. Calcium 9.2 8.5 - 10.3 mg/dL [facility] Bilirubin, total 0.5 0.1 - 1.2 mg/dL [facility] Protein, pl 6.2(L) 6.5 - 8.5 g/dL [facility] Albumin 4.1 3.5 - 5.0 g/dL [facility] Alk phos 61 40 - 130 Units/L [facility] ALT 15 7 - 55 Units/L [facility] AST 16 10 - 50 Units/L [facility] Blood 08/06/2024 7:43 AM BARREL COATER 08/06/2024 7:52 AM BARREL COATER Hermelindo Butler MD LAB BLOOD ORDER ELANA Final Result Performing Organization Address [facility] Co de Phone Number [facility] [place] [employer] [address] * aPTT (08/03/2024 9:21 AM BARREL COATER) aPTT 31 28 - 38 sec Comment: Interpretive Data Heparin therapeutic range: 66.0 - 100.0 seconds. Range based on correlation with therapeutic heparin activity range of 0.3 - 0.7 Units/mL. Current interpretive data was last revised on 2023. Blood 08/03/2024 9:21 AM BARREL COATER 08/03/2024 9:47 AM BARREL COATER Hermelindo Butler MD LAB BLOOD ORDER ELANA Final Result Performing Organization Address City/[facility] Co de Phone Number [facility] Department [place] [employer] [address] * Protime-INR (08/03/2024 9:21 AM BARREL COATER) Pathologist [facility] PT 11.5 9.7 - 13.0 sec INR 1.06 0.90 - 1.20 [facility] Comment: Interpretive data Oral anticoagulant therapeutic ranges: Venous thromboembolism prophylaxis or treatment: 2.0-3.0 CARDIOLOGY Standard range: 2.0-3.0 High-intensity range: 2.5-3.5 Refer to indication-specific guidelines for appropriate target ranges for prosthetic heart valve replacement. Current interpretive data was last revised on 2019. Blood 08/03/2024 9:21 AM BARREL COATER 08/03/2024 9:47 AM BARREL COATER Hermelindo Butler MD LAB BLOOD ORDER ELANA Final Result Performing Organization Address [facility] Co de Phone Number [facility] Department [place] [address] * Immunotyping, serum with interpretation (08/03/2024 7:40 AM BARREL COATER) Pathologist [facility] Immunosubtraction Please see comment Comment: NO PARAPROTEIN DETECTED Reviewed and signed by Hermelindo Mcnulty MD 08/04/2024 Blood 08/03/2024 7:40 AM BARREL COATER 08/03/2024 8:24 AM BARREL COATER Hermelindo Butler MD LAB BLOOD ORDER ELANA Final Result Performing Organization Address City/[facility] de Phone Number [facility] Department [place] [address] * (ABNORMAL) eGFR (08/03/2024 7:40 AM BARREL COATER) [facility] eGFR 37(L) >=60 mL/min/1. 73 m2 Comment: [...] last reviewed 2021. Blood 08/03/2024 7:40 AM BARREL COATER 08/03/2024 7:49 AM BARREL COATER Hermelindo Butler MD LAB BLOOD ORDER ELANA Final Result [facility] Department [place] [address] * (ABNORMAL) Differential, auto (08/03/2024 7:40 AM BARREL COATER) Neutrophil abs 5.6 1.5 - 6.5 K/cumm Comment:Testing performed by : [facility], [address] [place], [place] [id number] Lymphocyte abs 0.9 0.8 - 3.3 K/cumm [facility] Comment:Testing performed by : [facility], [address] [place], [place] [id number] Monocyte abs 0.6 0.2 - 0.8 K/cumm [facility] Comment:Testing performed by : [facility], [address] [place], [place] [id number] Eosinophil abs 0.8(H) 0.0 - 0.5 K/cumm [facility] Comment:Testing performed by : [facility], [address] [place] [phone] Basophil abs 0.0 0.0 - 0.1 K/cumm [facility] Comment:Testing performed by : [facility], [address] [place] [phone] Neutrophil pct 70.4 % [facility] Comment: Interpretive Data Percent cell count reference ranges are not reported, since discordance with absolute values may lead to misinterpretation of CBC data. Current Interpretive Data was last revised on 2017. Testing performed by: [facility], [address] [place] [phone] Lymphocyte pct 11.2 % [facility] Comment: Interpretive Data Percent cell count reference ranges are not reported, since discordance with absolute values may lead to misinterpretation of CBC data. Current Interpretive Data was last revised on 2017. Testing performed by: [facility], [address] [place] [phone] Monocyte pct 7.7 % [facility] Comment: Interpretive Data Percent cell count reference ranges are not reported, since discordance with absolute values may lead to misinterpretation of CBC data. Current Interpretive Data was last revised on 2017. Testing performed by: [facility], [address] [place] [phone] Eosinophil pct 10.1 % [facility] Comment: Interpretive Data Percent cell count reference ranges are not reported, since discordance with absolute values may lead to misinterpretation of CBC data. Current Interpretive Data was last revised on 2017. Testing performed by: [facility], [address] [place] [phone] Basophil pct 0.6 % [facility] Comment: Interpretive Data Percent cell count reference ranges are not reported, since discordance with absolute values may lead to misinterpretation of CBC data. Current Interpretive Data was last revised on 2017. Testing performed by: [facility], [address] [place] [phone] Blood 08/03/2024 7:40 AM BARREL COATER 08/03/2024 7:47 AM BARREL COATER Hermelindo Butler MD LAB BLOOD ORDER ELANA Final Result MT [facility] Department [place] [address] * (ABNORMAL) Immunoglobulin free light chains (08/03/2024 7:40 AM BARREL COATER) Pathologist [facility] [place]/Lambda ratio [facility] See Comment 0.26 - 1.65 Comment: Unable to calculate exact result. Interpretive Data The Binding Site FreeLite assay procedure was used. Results from different manufacturers or methods may not be comparable. Serial testing should be performed using the same methods and instrumentation. Current Interpretive Data was last revised on 2023. [place] free light chain [facility] <0.06(L) 0.33 - 1.94 mg/dL [facility] Comment: Interpretive Data The Binding Site [...] revised on 2023. Blood 08/03/2024 7:40 AM BARREL COATER 08/03/2024 8:24 AM BARREL COATER Hermelindo Butler MD LAB BLOOD ORDER ELANA Final Result [facility] Department [place] [address] * (ABNORMAL) CBC with auto differential (08/03/2024 7:40 AM BARREL COATER) [facility] WBC 7.9 3.8 - 9.9 K/cumm Comment:Testing performed by : [facility], [address] [place] [phone] Hgb 13.7 13.0 - 17.5 g/dL MT [facility] Comment:Testing performed by : [facility], [address] [place] [address] Hct 41.5 38.9 - 50.3 % [facility] Comment:Testing performed by : [facility], [address] [place], [place] [id number] Plt 163 150 - 400 K/cumm [facility] Comment:Testing performed by : [facility], [address] [place] [address] MPV 7.8 6.8 - 10.4 fL [facility] Comment:Testing performed by : [facility], [address] [place], [place] [id number] RBC 4.50 4.30 - 5.80 M/cumm [facility] Comment:Testing performed by : [facility], [address] [place], [place] [id number] MCV 92.1 81.3 - 96.4 fL [facility] Comment:Testing performed by : [facility], [address] [place], [place] [id number] MCH 30.4 27.1 - 33.3 pg [facility] Comment:Testing performed by : [facility], [address] [place] [address] MCHC 33.0 32.3 - 35.7 g/dL [facility] Comment:Testing performed by : [facility], [address] [place] [address] RDW CV 16.6(H) 11.1 - 14.9 % [facility] Comment:Testing performed by : [facility], [address] [place] [address] NRBC abs 0.00 0.00 - 0.01 K/cumm [facility] Comment:Testing performed by : [facility], [address] [place] [address] Blood 08/03/2024 7:40 AM BARREL COATER 08/03/2024 7:47 AM BARREL COATER Hermelindo Butler MD LAB BLOOD ORDER ELANA Final Result Performing Organization Address City/[facility]/ZIP Co de Phone Number [facility] Department [place] [address] * (ABNORMAL) Protein electrophoresis with reflex, serum with interpretation (08/03/2024 7:40 AM BARREL COATER) [facility] Protein, sr 5.7(L) 6.2 - 8.2 g/dL [...] Mcnulty MD 08/04/2024 Blood 08/03/2024 7:40 AM BARREL COATER 08/03/2024 8:24 AM BARREL COATER Hermelindo Butler MD LAB BLOOD ORDER ELANA Final Result [facility] Department [place] [address] * Magnesium (08/03/2024 7:40 AM BARREL COATER) [facility] Magnesium 2.2 1.4 - 2.5 mg/dL Blood 08/03/2024 7:40 AM BARREL COATER 08/03/2024 9:36 AM BARREL COATER Hermelindo Butler MD LAB BLOOD ORDER ELANA Final Result Performing Organization Address [facility] Co de Phone Number [facility] [place] [employer] [address] * Lactate dehydrogenase (LD) (08/03/2024 7:40 AM BARREL COATER) [facility] Lactate dehydrogenase (LDH) 172 100 - 250 Units/L Blood 08/03/2024 7:40 AM BARREL COATER 08/03/2024 7:49 AM BARREL COATER Hermelindo Butler MD LAB BLOOD ORDER ELANA Final Result Performing Organization Address [facility] [place] [address] * (ABNORMAL) Hemoglobin A1c (08/03/2024 7:40 AM BARREL COATER) [facility] Hgb A1C 5.8(H) 4.0 - 5.6 % [...] a fasting glucose. Blood 08/03/2024 7:40 AM BARREL COATER 08/03/2024 7:49 AM BARREL COATER Lyndsey Fagan NP LAB BLOOD ORDERABLES Angeles l Result Performing Organization Address [facility] Co de Phone Number [facility] [employer] [address] * Gamma GT (08/03/2024 7:40 AM BARREL COATER) [facility] GGT 23 10 - 50 Units/L Blood 08/03/2024 7:40 AM BARREL COATER 08/03/2024 9:36 AM BARREL COATER us Hermelindo Butler MD LAB BLOOD ORDER ELANA Final Result Performing Organization Address [facility] de Phone Number [facility] [place] [address] * (ABNORMAL) IgA (08/03/2024 7:40 AM BARREL COATER) Immunoglobulin A <50(L) 70 - 400 mg/dL Blood 08/03/2024 7:40 AM BARREL COATER 08/03/2024 8:09 AM BARREL COATER us Hermelindo Butler MD LAB BLOOD ORDER ELANA Final Result Performing Organization Address [facility] Phone Number [facility] [place] [address] * (ABNORMAL) IgM (08/03/2024 7:40 AM BARREL COATER) Immunoglobulin M <25(L) 40 - 230 mg/dL Blood 08/03/2024 7:40 AM BARREL COATER 08/03/2024 8:09 AM BARREL COATER us Hermelindo Butler MD LAB BLOOD ORDER ELANA Final Result Performing Organization Address [facility] de Phone Number [facility] Department [place] [address] * (ABNORMAL) IgG (08/03/2024 7:40 AM BARREL COATER) Immunoglobulin G <300(L) 700 - 1,600 mg/dL Blood 08/03/2024 7:40 AM BARREL COATER 08/03/2024 8:09 AM BARREL COATER us Hermelindo Butler MD LAB BLOOD ORDER ELANA Final Result Performing Organization Address City/[facility] de Phone Number MT [facility] Department [place] [address] * (ABNORMAL) Comprehensive metabolic panel (08/03/2024 7:40 AM BARREL COATER) Sodium 141 135 - 145 mmol/L Potassium, [...] [facility] Blood 08/03/2024 7:40 AM BARREL COATER 08/03/2024 7:49 AM BARREL COATER Hermelindo Butler MD LAB BLOOD ORDER ELANA Final Result [facility] [place] [address] * (ABNORMAL) Urinalysis reflex to microscopic and culture Urine, clean voided (08/03/2024 7:30 AM BARREL COATER) Color, ur Straw Yellow Clarity, ur Clear [...] tendency for uric acid stone formation. Source: [facility] Current Interpretive Data was last revised on [...] HOSPITAL Urine, clean voided 08/03/2024 7:30 AM BARREL COATER 08/03/2024 7:30 AM BARREL COATER Lyndsey Fagan LABOR [employer]BIT[employer] LAB MICROBIOLOGY - GENERA L ORDERABLES Final Result MT [facility] [place] [address] * (ABNORMAL) Urinalysis, microscopic only (08/03/2024 7:30 AM BARREL COATER) WBC, ur 6-10(A) 0 - 5 /HPF RBC, ur 11-20(A) 0 - 2 /HPF [facility] Epithelial cells, squamous, ur 1-5 0 - 5 /HPF [facility] Bacteria, ur Trace(A) [facility] Culture Reflex Comment Reflex conditions for urine culture (WBC >10) not met. [facility] Urine, clean voided 08/03/2024 7:30 AM BARREL COATER 08/03/2024 7:30 AM BARREL COATER Lyndsey Fagan NP LAB URINE ORDERABLES Angeles l Result Performing Organization Address [facility] Co de Phone Number [facility] [place] [address] * Urine culture Urine, clean voided (08/03/2024 7:30 AM BARREL COATER) Report Final Report: No growth Urine, clean voided 08/03/2024 7:30 AM BARREL COATER 08/03/2024 9:59 AM BARREL COATER Narrative [facility] - 08/04/2024 11:14 AM BARREL COATER Testing performed by [facility] ([phone]) Hermelindo Butler MD LAB MICROBIOLOG Y - GENERAL ORDERABLES Final Result Performing Organization Address [facility] Co de Phone Number [facility] Department [employer] [address] * Immunotyping, serum with interpretation (07/13/2024 7:40 AM BARREL COATER) Immunosubtraction Please see comment Comment: NO PARAPROTEIN DETECTED Reviewed and signed by Rufino Huff MD, PhD 07/14/2024 Blood 07/13/2024 7:40 AM BARREL COATER 07/13/2024 8:42 AM BARREL COATER Hermelindo Butler MD LAB BLOOD ORDER ELANA Final Result Performing Organization Address [facility] Co de Phone Number [facility] [place] [address] * (ABNORMAL) eGFR (07/13/2024 7:40 AM BARREL COATER) Pathologist [facility] eGFR 57(L) >=60 mL/min/1. 73 m2 Comment: [...] last reviewed 2021. Blood 07/13/2024 7:40 AM BARREL COATER 07/13/2024 7:47 AM BARREL COATER Hermelindo Butler MD LAB BLOOD ORDER ELANA Final Result [facility] [place] [address] * Differential, auto (07/13/2024 7:40 AM BARREL COATER) [facility] Neutrophil abs 5.4 1.5 - 6.5 K/cumm Comment:Testing performed by : [facility], [address] [place] [phone] Lymphocyte abs 0.9 0.8 - 3.3 K/cumm [facility] Comment:Testing performed by : [facility], [address] [place] [phone] Monocyte abs 0.5 0.2 - 0.8 K/cumm [facility] Comment:Testing performed by : [facility], [address] [place] [phone] Eosinophil abs 0.5 0.0 - 0.5 K/cumm [facility] Comment:Testing performed by : [facility], [address] [place] [phone] Basophil abs 0.0 0.0 - 0.1 K/cumm [facility] Comment:Testing performed by : [facility], [address] [place] [phone] Neutrophil pct 73.6 % [facility] Comment: Interpretive Data Percent cell count reference ranges are not reported, since discordance with absolute values may lead to misinterpretation of CBC data. Current Interpretive Data was last revised on 2017. Testing performed by: [facility], [address] [place] [phone] Lymphocyte pct 12.0 % [facility] Comment: Interpretive Data Percent cell count reference ranges are not reported, since discordance with absolute values may lead to misinterpretation of CBC data. Current Interpretive Data was last revised on 2017. Testing performed by: [facility], [address] [place] [phone] Monocyte pct 7.4 % [facility] Comment: Interpretive Data Percent cell count reference ranges are not reported, since discordance with absolute values may lead to misinterpretation of CBC data. Current Interpretive Data was last revised on 2017. Testing performed by: [facility], [address] [place] [phone] Eosinophil pct 6.5 % [facility] Comment: Interpretive Data Percent cell count reference ranges are not reported, since discordance with absolute values may lead to misinterpretation of CBC data. Current Interpretive Data was last revised on 2017. Testing performed by: [facility], [address] [place] [phone] Basophil pct 0.5 % [facility] Comment: Interpretive Data Percent cell count reference ranges are not reported, since discordance with absolute values may lead to misinterpretation of CBC data. Current Interpretive Data was last revised on 2017. Testing performed by: [facility], [facility] [place] [phone] Blood 07/13/2024 7:40 AM BARREL COATER 07/13/2024 7:46 AM BARREL COATER Hermelindo Butler MD LAB BLOOD ORDER ELANA Final Result [facility] [place] [address] * (ABNORMAL) Immunoglobulin free light chains (07/13/2024 7:40 AM BARREL COATER) [facility] Lodge/Lambda ratio [facility] See Comment 0.26 - 1.65 Comment: Unable to calculate exact result. Interpretive Data The Binding Site FreeLite assay procedure was used. Results from different manufacturers or methods may not be comparable. Serial testing should be performed using the same methods and instrumentation. Current Interpretive Data was last revised on 2023. [facility] free light chain [facility] <0.06(L) 0.33 - [...] revised on 2023. Blood 07/13/2024 7:40 AM BARREL COATER 07/13/2024 8:42 AM BARREL COATER Hermelindo Butler MD LAB BLOOD ORDER ELANA Final Result MT ERICK [facility] [place] [address] * (ABNORMAL) CBC with auto differential (07/13/2024 7:40 AM BARREL COATER) WBC 7.4 3.8 - 9.9 K/cumm Comment:Testing performed by : [facility], [address] [place] [address] Hgb 14.4 13.0 - 17.5 g/dL CERNER BJ Comment:Testing performed by : [facility], [address] [place] [address] Hct 44.1 38.9 - 50.3 % CERNER BJ Comment:Testing performed by : [facility], [address] [place] [address] Plt 174 150 - 400 K/cumm CERNER BJ Comment:Testing performed by : [facility], [address] [place] [address] MPV 7.5 6.8 - 10.4 fL CERNER BJ Comment:Testing performed by : [facility], [address] [place] [address] RBC 4.75 4.30 - 5.80 M/cumm CERNER BJ Comment:Testing performed by : [facility], [address] [place] [address] MCV 92.8 81.3 - 96.4 fL CERNER BJ Comment:Testing performed by : [facility], [address] [place] [address] MCH 30.2 27.1 - 33.3 pg CERNER BJ Comment:Testing performed by : [facility], [address] [place] [address] MCHC 32.6 32.3 - 35.7 g/dL CERNER BJ Comment:Testing performed by : [facility], [address] [place] [address] RDW CV 16.2(H) 11.1 - 14.9 % CERNER BJ Comment:Testing performed by : [facility], [address] [place] [phone] NRBC abs 0.00 0.00 - 0.01 K/cumm [facility] Comment:Testing performed by : [facility], [address] [place] [phone] Blood 07/13/2024 7:40 AM BARREL COATER 07/13/2024 7:46 AM BARREL COATER Hermelindo Butler MD LAB BLOOD ORDER ELANA Final Result Performing Organization Address City/[facility]/ZIP Co de Phone Number [facility] Department [place] [employer] [place] [address] * (ABNORMAL) Protein electrophoresis with reflex, serum with interpretation (07/13/2024 7:40 AM BARREL COATER) Pathologist [facility] Protein, sr 5.7(L) 6.2 - 8.2 g/dL [...] MD, PhD 07/14/2024 Blood 07/13/2024 7:40 AM BARREL COATER 07/13/2024 8:42 AM BARREL COATER Hermelindo Butler MD LAB BLOOD ORDER ELANA Final Result [facility] Department [place] [address] * Magnesium (07/13/2024 7:40 AM BARREL COATER) Pathologist [facility] Magnesium 2.2 1.4 - 2.5 mg/dL Blood 07/13/2024 7:40 AM BARREL COATER 07/13/2024 7:47 AM BARREL COATER Hermelindo Butler MD LAB BLOOD ORDER ELANA Final Result Performing Organization Address City/[facility] Co de Phone Number [facility] Department [place] [address] * Lactate dehydrogenase (LD) (07/13/2024 7:40 AM BARREL COATER) [facility] Lactate dehydrogenase (LDH) 152 100 - 250 Units/L Blood 07/13/2024 7:40 AM BARREL COATER 07/13/2024 7:47 AM BARREL COATER Hermelindo Butler MD LAB BLOOD ORDER ELANA Final Result Performing Organization Address [facility] de Phone Number [facility] Department [place] [employer] [address] * Gamma GT (07/13/2024 7:40 AM BARREL COATER) Pathologist [facility] GGT 27 10 - 50 Units/L Blood 07/13/2024 7:40 AM BARREL COATER 07/13/2024 7:47 AM BARREL COATER Hermelindo Butler MD LAB BLOOD ORDER ELANA Final Result Performing Organization Address City/[facility] de Phone Number [facility] [employer] [address] * (ABNORMAL) IgA (07/13/2024 7:40 AM BARREL COATER) Pathologist [facility] Immunoglobulin A <50(L) 70 - 400 mg/dL Blood 07/13/2024 7:40 AM BARREL COATER 07/13/2024 7:59 AM BARREL COATER Hermelindo Butler MD LAB BLOOD ORDER ELANA Final Result Performing Organization Address [facility] de Phone Number [facility] [place] [address] * (ABNORMAL) IgM (07/13/2024 7:40 AM BARREL COATER) [facility] Immunoglobulin M <25(L) 40 - 230 mg/dL Blood 07/13/2024 7:40 AM BARREL COATER 07/13/2024 7:59 AM BARREL COATER Hermelindo Butler MD LAB BLOOD ORDER ELANA Final Result Performing Organization Address [facility] de Phone Number [facility] Department [place] [address] * (ABNORMAL) IgG (07/13/2024 7:40 AM BARREL COATER) [facility] Immunoglobulin G <300(L) 700 - 1,600 mg/dL Blood 07/13/2024 7:40 AM BARREL COATER 07/13/2024 7:59 AM BARREL COATER Hermelindo Butler MD LAB BLOOD ORDER ELANA Final Result Performing Organization Address [facility] de Phone Number [facility] [place] [address] * (ABNORMAL) Comprehensive metabolic panel (07/13/2024 7:40 AM BARREL COATER) [facility] Sodium 144 135 - 145 mmol/L Potassium, [...] 2022. Calcium 9.4 8.5 - 10.3 mg/dL [facility] Bilirubin, total 0.7 0.1 - 1.2 mg/dL [facility] Protein, pl 6.2(L) 6.5 - 8.5 g/dL [facility] Albumin 4.1 3.5 - 5.0 g/dL [facility] Alk phos 65 40 - 130 Units/L [facility] ALT 18 7 - 55 Units/L [facility] AST 16 10 - 50 Units/L [facility] Blood 07/13/2024 7:40 AM BARREL COATER 07/13/2024 7:47 AM BARREL COATER Hermelindo Butler MD LAB BLOOD ORDER ELANA Final Result [facility] Department [place] [address] * aPTT (07/13/2024 7:24 AM BARREL COATER) [facility] Signature aPTT 28 28 - 38 sec Comment: Interpretive Data Heparin therapeutic range: 66.0 - 100.0 seconds. Range based on correlation with therapeutic heparin activity range of 0.3 - 0.7 Units/mL. Current interpretive data was last revised on 2023. Blood 07/13/2024 7:24 AM BARREL COATER 07/13/2024 7:59 AM BARREL COATER Hermelindo Butler MD LAB BLOOD ORDER ELANA Final Result Performing Organization Address City/State/[facility] Co de Phone Number [facility] Department [place] [address] * Protime-INR (07/13/2024 7:24 AM BARREL COATER) Pathologist [facility] PT 11.5 9.7 - 13.0 sec INR 1.06 0.90 - 1.20 [facility] Comment: Interpretive data Oral anticoagulant therapeutic ranges: Venous thromboembolism prophylaxis or treatment: 2.0-3.0 CARDIOLOGY Standard range: 2.0-3.0 High-intensity range: 2.5-3.5 Refer to indication-specific guidelines for appropriate target ranges for prosthetic heart valve replacement. Current interpretive data was last revised on 2019. Blood 07/13/2024 7:24 AM BARREL COATER 07/13/2024 7:59 AM BARREL COATER eHrmelindo Butler MD LAB BLOOD ORDER ELANA Final Result Performing Organization Address [facility] de Phone Number [facility] Department [place] [employer] [place] [address] * Immunotyping, serum (06/22/2024 7:20 AM BARREL COATER) Pathologist [facility] Immunosubtraction Please see comment Comment: NO PARAPROTEIN DETECTED Reviewed and signed by Fernando Nunez MD, PhD 06/23/2024 Blood 06/22/2024 7:20 AM BARREL COATER 06/22/2024 10:03 AM BARREL COATER Hermelindo Butler MD LAB BLOOD ORDER ELANA Final Result Performing Organization Address City/[facility] Co de Phone Number [facility] [place] [address] * eGFR (06/22/2024 7:20 AM BARREL COATER) Pathologist [facility] eGFR 66 >=60 mL/min/1. 73 m2 Comment: [...] last reviewed 2021. Blood 06/22/2024 7:20 AM BARREL COATER 06/22/2024 8:12 AM BARREL COATER Hermelindo Butler MD LAB BLOOD ORDER ELANA Final Result MT SUAREZ [facility] Department [place] [address] * Differential, auto (06/22/2024 7:20 AM BARREL COATER) [facility] Neutrophil abs 5.4 1.5 - 6.5 K/cumm Comment:Testing performed by : [facility], [address] [place] [phone] Lymphocyte abs 0.9 0.8 - 3.3 K/cumm MT [facility] Comment:Testing performed by : [facility], [address] [place] [phone] Monocyte abs 0.5 0.2 - 0.8 K/cumm MT [facility] Comment:Testing performed by : [facility], [address] [place] [phone] Eosinophil abs 0.2 0.0 - 0.5 K/cumm CERNER [facility] Comment:Testing performed by : [facility], [address] [place] [phone] Basophil abs 0.0 0.0 - 0.1 K/cumm CERNER [facility] Comment:Testing performed by : [facility], [address] [place] [phone] Neutrophil pct 75.7 % CERNER [facility] Comment: Interpretive Data Percent cell count reference ranges are not reported, since discordance with absolute values may lead to misinterpretation of CBC data. Current Interpretive Data was last revised on 2017. Testing performed by: [facility], [address] [place] [phone] Lymphocyte pct 13.1 % CERNER [facility] Comment: Interpretive Data Percent cell count reference ranges are not reported, since discordance with absolute values may lead to misinterpretation of CBC data. Current Interpretive Data was last revised on 2017. Testing performed by: [facility], [address] [place] [phone] Monocyte pct 7.1 % CERNER [facility] Comment: Interpretive Data Percent cell count reference ranges are not reported, since discordance with absolute values may lead to misinterpretation of CBC data. Current Interpretive Data was last revised on 2017. Testing performed by: [facility], [address] [place] [phone] Eosinophil pct 3.5 % CERNER [facility] Comment: Interpretive Data Percent cell count reference ranges are not reported, since discordance with absolute values may lead to misinterpretation of CBC data. Current Interpretive Data was last revised on 2017. Testing performed by: [facility], [address] [place] [phone] Basophil pct 0.6 % C[facility]ER [facility] Comment: Interpretive Data Percent cell count reference ranges are not reported, since discordance with absolute values may lead to misinterpretation of CBC data. Current Interpretive Data was last revised on 2017. Testing performed by: [facility], [address] [place] [phone] Blood 06/22/2024 7:20 AM BARREL COATER 06/22/2024 8:08 AM BARREL COATER Hermelindo Butler MD LAB BLOOD ORDER ELANA Final Result [facility] [place] [address] * (ABNORMAL) Immunoglobulin free light chains (06/22/2024 7:20 AM BARREL COATER) [facility]/Lambda ratio [facility] See Comment 0.26 - 1.65 Comment: Unable to calculate exact result. Interpretive Data The Binding Site FreeLite assay procedure was used. Results from different manufacturers or methods may not be comparable. Serial testing should be performed using the same methods and instrumentation. Current Interpretive Data was last revised on 2023. [place] [facility] free light chain [facility] <0.06(L) 0.33 - [...] revised on 2023. Blood 06/22/2024 7:20 AM BARREL COATER 06/22/2024 9:53 AM BARREL COATER Hermelindo Butler MD LAB BLOOD ORDER ELANA Final Result [facility] Department [place] [address] * (ABNORMAL) CBC with auto differential (06/22/2024 7:20 AM BARREL COATER) WBC 7.1 3.8 - 9.9 K/cumm Comment:Testing performed by : [facility], [address] [place] [address] Hgb 14.6 13.0 - 17.5 g/dL CERNER BJ Comment:Testing performed by : [facility], [address] [place] [address] Hct 45.6 38.9 - 50.3 % CERNER BJ Comment:Testing performed by : [facility], [address] [place] [address] Plt 196 150 - 400 K/cumm CERNER BJ Comment:Testing performed by : [facility], [address] [place] [address] MPV 8.3 6.8 - 10.4 fL CERNER BJ Comment:Testing performed by : [facility], [address] [place] [address] RBC 4.88 4.30 - 5.80 M/cumm CERNER BJ Comment:Testing performed by : [facility], [address] [place] [address] MCV 93.5 81.3 - 96.4 fL CERNER BJ Comment:Testing performed by : [facility], [address] [place] [address] MCH 29.9 27.1 - 33.3 pg CERNER BJ Comment:Testing performed by : [facility], [address] [place] [address] MCHC 31.9(L) 32.3 - 35.7 g/dL CERNER BJ Comment:Testing performed by : [facility], [address] [place] [address] RDW CV 16.0(H) 11.1 - 14.9 % CERNER BJ Comment:Testing performed by : [facility], [address] [place] [phone] NRBC abs 0.20(H) 0.00 - 0.01 K/cumm [facility] Comment:Testing performed by : [facility], [address] [place] [phone] Blood 06/22/2024 7:20 AM BARREL COATER 06/22/2024 8:08 AM BARREL COATER Hermelindo Butler MD LAB BLOOD ORDER ELANA Final Result Performing Organization Address [facility] de Phone Number [facility] [place] [address] * aPTT (06/22/2024 7:20 AM BARREL COATER) aPTT 29 28 - 38 sec Comment: Interpretive Data Heparin therapeutic range: 66.0 - 100.0 seconds. Range based on correlation with therapeutic heparin activity range of 0.3 - 0.7 Units/mL. Current interpretive data was last revised on 2023. Blood 06/22/2024 7:20 AM BARREL COATER 06/22/2024 9:50 AM BARREL COATER Hermelindo Butler MD LAB BLOOD ORDER ELANA Final Result Performing Organization Address [facility] de Phone Number [facility] [employer] [place] [address] * Protime-INR (06/22/2024 7:20 AM BARREL COATER) PT 10.9 9.7 - 13.0 sec INR 1.01 0.90 - 1.20 [facility] Comment: Interpretive data Oral anticoagulant therapeutic ranges: Venous thromboembolism prophylaxis or treatment: 2.0-3.0 CARDIOLOGY Standard range: 2.0-3.0 High-intensity range: 2.5-3.5 Refer to indication-specific guidelines for appropriate target ranges for prosthetic heart valve replacement. Current interpretive data was last revised on 2019. Blood 06/22/2024 7:20 AM BARREL COATER 06/22/2024 9:50 AM BARREL COATER Hermelindo Butler MD LAB BLOOD ORDER ELANA Final Result MT [facility] Department [place] [address] * (ABNORMAL) Protein electrophoresis with reflex, serum (06/22/2024 7:20 AM BARREL COATER) Pathologist [facility] Protein, sr 5.9(L) 6.2 - 8.2 g/dL [...] [facility] Blood 06/22/2024 7:20 AM BARREL COATER 06/22/2024 9:55 AM BARREL COATER Hermelindo Butler MD LAB BLOOD ORDER ELANA Final Result [facility] Department [place] [address] * Magnesium (06/22/2024 7:20 AM BARREL COATER) Pathologist [facility] Magnesium 2.2 1.4 - 2.5 mg/dL Blood 06/22/2024 7:20 AM BARREL COATER 06/22/2024 8:12 AM BARREL COATER us Hermelindo Butler MD LAB BLOOD ORDER ELANA Final Result Performing Organization Address [facility] de Phone Number [facility] [place] [address] * Lactate dehydrogenase (LD) (06/22/2024 7:20 AM BARREL COATER) Lactate dehydrogenase (LDH) 157 100 - 250 Units/L Blood 06/22/2024 7:20 AM BARREL COATER 06/22/2024 8:12 AM BARREL COATER us Hermelindo Butler MD LAB BLOOD ORDER ELANA Final Result Performing Organization Address [facility] de Phone Number [facility] [place] [address] * Gamma GT (06/22/2024 7:20 AM BARREL COATER) GGT 30 10 - 50 Units/L Blood 06/22/2024 7:20 AM BARREL COATER 06/22/2024 8:12 AM BARREL COATER us Hermelindo Butler MD LAB BLOOD ORDER ELANA Final Result Performing Organization Address [facility] [place] [address] * (ABNORMAL) IgA (06/22/2024 7:20 AM BARREL COATER) Immunoglobulin A <50(L) 70 - 400 mg/dL Blood 06/22/2024 7:20 AM BARREL COATER 06/22/2024 9:49 AM BARREL COATER us Hermelindo Butler MD LAB BLOOD ORDER ELANA Final Result [facility] Department [place] [address] * (ABNORMAL) IgM (06/22/2024 7:20 AM BARREL COATER) [facility] Immunoglobulin M <25(L) 40 - 230 mg/dL Blood 06/22/2024 7:20 AM BARREL COATER 06/22/2024 9:49 AM BARREL COATER Hermelindo Butler MD LAB BLOOD ORDER ELANA Final Result Performing Organization Address City/[facility] Co de Phone Number [facility] Department [place] [address] * (ABNORMAL) IgG (06/22/2024 7:20 AM BARREL COATER) [facility] Immunoglobulin G 423(L) 700 - 1,600 mg/dL Blood 06/22/2024 7:20 AM BARREL COATER 06/22/2024 9:49 AM BARREL COATER Hermelindo Butler MD LAB BLOOD ORDER ELANA Final Result Performing Organization Address City/[facility] Co de Phone Number [facility] Department [place] [address] * (ABNORMAL) Comprehensive metabolic panel (06/22/2024 7:20 AM BARREL COATER) [facility] Sodium 141 135 - 145 mmol/L Potassium, [...] 2022. Calcium 9.5 8.5 - 10.3 mg/dL [facility] Bilirubin, total 0.7 0.1 - 1.2 mg/dL [facility] Protein, pl 6.3(L) 6.5 - 8.5 g/dL [facility] Albumin 3.8 3.5 - 5.0 g/dL [facility] Alk phos 63 40 - 130 Units/L [facility] ALT 18 7 - 55 Units/L [facility] AST 20 10 - 50 Units/L [facility] Blood 06/22/2024 7:20 AM BARREL COATER 06/22/2024 8:12 AM BARREL COATER us Hermelindo Butler MD LAB BLOOD ORDER ELANA Final Result Performing Organization Address City/[facility]/ZIP Co de Phone Number [facility] Department [place] [employer] [place] [address] * Hepatitis C antibody (10/16/2021 9:50 AM CDT) Pathologist [facility] Hep C Ab Nonreactive Nonreactive [facility] Comment:Antibodies to HCV no t detected. Does NOT exclude the possibility of recent exposure to HCV. Blood 10/16/2021 9:50 AM CDT 10/16/2021 11:22 AM CDT Hermelindo dupree MD LAB MICROBIOLOGY - GENERAL ORDERABLES Edited Result - Final [facility] Department [place] [employer] [address] from Last 3 Months or Most Recently Relevant to Health Maintenance Insurance MEDICARE AET SENIOR SUPPLEMENT MEDICARE AETNA SENIOR SUPPLEMENT MEDICARE AET SENIOR SUPPLEMENT Advance Directives For more information, please contact: [phone] Documents on File Type Date Recorded Patient [employer] ADVANCE DIRECTIVE 11/29/2017 11:05 AM FOX R OF GARAGE MECHANIC ADVANCE DIRECTIVE 11/12/2017 3:59 PM POWER OF GARAGE MECHANIC * Full Code (Latest Code Status on [...] 12:02 AM 01/06/2018 2:58 PM Care Teams Master Machinist Relationship Specialty Start Date End Date Jatin Gamble MD [address] [place] [address] PCP - General 10/07/16 Hermelindo Butler MD [address] [place] [address] Medical Onc[facility] Oncology 12/02/17 Roberto Rojo MD [address] [id number] Medical Oncologist[facility]emat[facility] and Oncology 12/02/17 Jatin Gamble MD [address] [place] [address] Referring Physician Internal Medicine 12/02/17 Lyndsey Fagan NP [address] [id number] Nurse Practitioner Medical Oncology 08/03/20 Erlin Servin MD [address] [place] [address] Consulting Physician Otolaryngology 10/04/22 [place] [address] [place] [address] Consulting Physician Urology 05/28/23
--- OUTSIDE RECORDS SUMMARY | 2024-08-20 07:17 | XMS_ITS | Encounter Summary ---
Author Organization [facility] Healthcare Address [address] [place] [address] Care Team Providers Care Roll Cutter Name Role Phone Jatin Gamble MD Primary Care Provider Hermelindo Butler MD Unavailable Roberto Rojo MD Unavailable [phone] Jatin Gamble MD Unavailable Garry Dukes MD Unavailable [phone] Lyndsey Fagan NP Unavailable Erlin Servin MD Unavailable Julian Valdez MD Unavailable Encounter Details Date Type Department Care Team (Late st Contact Info) Description 04/29/2022 Community Orders [facility] EpicCare Link Jatin Gamble MD [address] [place] [address] Elevated prostate specific antigen (PSA) (Primary Dx) Social History Tobacco Use Types Packs/Day Years Used Date Smoking Tobacco: Never Smokeless Tobacco: Never Alcohol Use Standard Drinks/Week Comments No 0 (1 standard drink = 0.6 oz pur e alcohol) Sex and Gender Information Value Date Recorded Sex Assigned at Not on file Legal 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 Gender Identity Not on file Sexual Orientation Not on file documented as of this encounter Plan of Treatment Not on file documented as of this encounter Visit Diagnoses Diagnosis Elevated prostate specific antigen (PSA)- Primary documented in this encounter Additional Health Concerns Infection Onset Date Last Indicated Resolved Time COVID: Suspected 12/16/2023 12/16/2023 12/16/2023 10:59 AM CDT Rhino/Enterovirus 12/16/2023 12/16/2023 12/23/2023 3:05 AM CDT documented as of this encounter Care Teams Roll Cutter Relationship Specialty Start Date End Date Jatin Gamble MD [address] [place] [address] PCP - General 10/07/16 Hermelindo Butler MD [address] [place] [address] [facility] 12/02/17 Roberto Rojo MD [address] [place] [address] [facility]cology 12/02/17 Jatin Gamble MD [address] [place] [address] Referring Physician Internal Medicine 12/02/17 Garry Dukes MD [address] [place] [address] Referring Physician Urology 12/02/17 05/27/23 Lyndsey Fagan NP [address] [place] [address] Nurse Practitioner Medical Oncology 08/03/20 Erlin Servin MD [address] [place] [address] Consulting Physician Otolaryngology 10/04/22 [place] [address] [place] [address] Consulting Physician Urology 05/28/23 documented as of this encounter
[2024-08-20 08:16] LABS: Anion Gap 11 mmol/L (4-12); Blood Urea Nitrogen 56 mg/dL (7-18); Calcium 8.6 mg/dL (8.5-10.1); Carbon Dioxide 28 mmol/L (21-32); Chloride 109 mmol/L (98-108); Estimated Glomerular Filt Rate 21; Glucose 117 mg/dL (70-99); Osmolality Calculated 322 mOsm/kg (285-295); Potassium 3.7 mmol/L (3.5-5.1); Sodium 148 mmol/L (136-145)
== END 2024-08-20 07:13 | disposition home or self-care (01) ==
LOC: CHSLAB 07:13
PROVIDERS: PCP Internal Medicine; Visit Provider Internal Medicine
DX: E86.0 Dehydration (principal)
CPT/HCPCS: 36415; 80048

== ENCOUNTER 2024-08-23 07:10 | Outpatient (CLI) | payer MEDICARE, SELFPAY ==
--- OUTSIDE RECORDS SUMMARY | 2024-08-23 07:17 | XMS_ITS | Encounter Summary ---
Author Organization [facility] Healthcare Address [address] [place] [address] Care Team Providers Care Aquatic Physiotherapist Name Role Phone Jatin Gamble MD Primary Care Provider Hermelindo Butler MD Unavailable Roberto Rojo MD Unavailable [phone] Jatin Gamble MD Unavailable [phone] Garry Dukes MD Unavailable Lyndsey Fagan NP Unavailable [phone] Erlin Servin MD Unavailable [phone] Julian Valdez MD Unavailable Encounter Details Date Type Department Care Team (Late st Contact Info) Description 11/22/2021 Documentation [facility] Case Management [address] [place] [address] Forrest Epstein, RN Social History Tobacco Use Types Packs/Day Years Used Date Smoking Tobacco: Never Smokeless Tobacco: Never Alcohol Use Standard Drinks/Week Comments No 0 (1 standard drink = 0.6 oz pur e alcohol) Sex and Gender Information Value Date Recorded Sex Assigned at Not on file 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 Gender Identity Not on file Sexual Orientation [...] documented as of this encounter Care Teams Aquatic Physiotherapist Relationship Specialty Start Date End Date Jatin Gamble MD [address] [place] [address] PCP - General 10/07/16 Hermelindo Butler MD [address] [place] [address] [facility] 12/02/17 Roberto Rojo MD [address] [place] [id number] [facility] 12/02/17 Jatin Gamble MD [address] [place] [address] Referring Physician Internal Medicine 12/02/17 Garry Dukes MD [address] [place], [place] [id number] Referring Physician Urology 12/02/17 05/27/23 Lyndsey Fagan NP [address] [place], [place] [id number] Nurse Practitioner Medical Oncology 08/03/20 Erlin Servin MD [address] [place] [address] Consulting Physician Otolaryngology 10/04/22 [place] [address] [place] [address] Consulting Physician Urology 05/28/23 documented as of this encounter
--- OUTSIDE RECORDS SUMMARY | 2024-08-23 07:17 | XMS_ITS | Encounter Summary ---
Author Organization [facility] Address [address] [place] [address] Phone Care Team Providers Care Professional Poker Player Name Role Phone Jatin Gamble MD Primary Care Provider [phone] Hermelindo Butler MD Unavailable Roberto Rojo MD Unavailable Jatin Gamble MD Unavailable Garry Dukes MD Unavailable [phone] Lyndsey Fagan NP Unavailable [phone] Erlin Servin MD Unavailable Julian Valdez MD Unavailable Encounter Details Date Type Department Care Team (Latest Contact Info) Description 10/16/2017 Orders Only [facility] CONVERSION Scanning, Provider Social History Tobacco Use Types Packs/Day Years Used Date Smoking Tobacco: Never Assessed Sex and Gender Information Value Date Recorded Sex Assigned at Not on file 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 Gender Identity Not on file Sexual Orientation [...] documented as of this encounter Care Teams Professional Poker Player Relationship Specialty Start Date End Date Jatin Gamble MD [address] [place] [address] PCP - General 10/07/16 Hermelindo Butler MD [address] [place] [place] [address] [facility] 12/02/17 Roberto Rojo MD [address] [place] [address] [facility] 12/02/17 Jatin Gamble MD [address] [place] [address] Referring Physician Internal Medicine 12/02/17 Garry Dukes MD [address] [place], [place] [id number] Referring Physician Urology 12/02/17 05/27/23 Lyndsey Fagan NP [address] [place] [address] Nurse Practitioner Medical Oncology 08/03/20 Erlin Servin MD [address] [place] [address] Consulting Physician Otolaryngology 10/04/22 [place] [address] [place] [address] Consulting Physician Urology 05/28/23 documented as of this encounter
--- OUTSIDE RECORDS SUMMARY | 2024-08-23 07:17 | XMS_ITS ---
Author Organization [facility] Address [address] [place] [address] Care Team Providers Care Lead Portfolio Manager Name Role Phone Jatin Gamble MD Primary Care Provider [phone] Hermelindo Butler MD Unavailable Roberto Rojo MD Unavailable [phone] Jatin Gamble MD Unavailable [phone] Lyndsey Fagan NP Unavailable Erlin Servin MD Unavailable [phone] Julian Valdez MD Unavailable Active Problems Patient Care Coordination No te Formatting of this note is d ifferent from the original. BMT Inpatient Care Coordination Overview Diagnosis MM [address] Treatment Plan Clinical Trial [id number] [facility] Reason for Admission Study chemo C1D1 Transplant/IEC Planning BMT/IEC Plan HLA typing/IDMs Insurance Approvals/Issues Discharge Planning Anticipated Discharge Date 11/01 Patient Education Completed Issue to be Resolved Before Discharge Discharge Disposition Home Requests Sent to Case Management and/or Medical Assistants Post-Discharge Follow-Up Living Situation/Distance from [place], [place] (45 min) Caregiver Self, Lab/Transfusion Frequency [...] is a risk of orbital injury and FLOW NURSE injury which could result in blindness or [...] this. Assessment & Plan (07/09/2022 7:42 PM COMPUTER SECURITY MANAGER): I talked with him quite a bit [...] weeks. Assessment & Plan (05/26/2022 4:16 PM COMPUTER SECURITY MANAGER): He does have pretty significant sinusitis and [...] day. Assessment & Plan (05/26/2022 4:17 PM COMPUTER SECURITY MANAGER): It is very possible that his cough could be due to sinusitis also. Hopefully that will continue to improve as we treat. He understands. Immunocompromised 11/13/2021 Multiple myeloma not having achieved remission 0 10/28/2021 Cancer Staging:Clinical stage from 10/16/2021:RISS Stage II(Voen-1-latwbwvuitkrj (mg/L): 3.7, Albumin (g/dL): 4.2, ISS: Stage [...] he got a TTE on 10/19 at [facility] however unclear why not currently in the system - May need to repeat TTE prior to treatment if results unavailable - Continue OI ppx with acyclovir 400mg BID - Begin trial [id number], a Bispecific Antibody Targeting BCMA treatment - [...] he got a TTE on 10/19 at [facility] however unclear why not currently in the system - May need to repeat TTE prior to treatment if results unavailable - Continue OI ppx with acyclovir 400mg BID - Begin trial [id number], a Bispecific Antibody Targeting BCMA treatment - [...] BID Assessment & Plan (05/31/2021 10:51 AM COMPUTER SECURITY MANAGER): Continue home pepcid, asx Renal mass 05/30/2021 Assessment & Plan (05/31/2021 10:51 AM COMPUTER SECURITY MANAGER): Admitted for observation after L renal mass [...] 07/17/2023 Assessment & Plan (05/31/2021 10:52 AM COMPUTER SECURITY MANAGER): Follows with oncology on daratumumab monotherapy -counts [...] blood in urine Follow up pathology from [id number]-mcr-vqsfdkms high-grade papillary urothelial carcinoma (grade 2) --follow [...] blood in urine Follow up pathology from [id number]-zam-mgtjqzhb high-grade papillary urothelial carcinoma (grade 2) --follow [...] supplementation Assessment & Plan (05/31/2021 10:51 AM COMPUTER SECURITY MANAGER): Stable on home losartan, nebivolol, triamterene-HCTZ 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/23/2013 Current Treatment and Therapy Plans - INPT/OUTPT - [facility] - MM - [id number] - Arm B - Dose Expansion Phase [...]
--- OUTSIDE RECORDS SUMMARY | 2024-08-23 07:17 | XMS_ITS | Referral Summary ---
Author Organization [facility] Address [address] [place] [address] Care Team Providers Care 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 Name Role Phone Jatin Gamble MD Primary Care Provider [phone] Hermelindo Butler MD Unavailable Roberto Rojo MD Unavailable [phone] Jatin Gamble MD Unavailable [phone] Lyndsey Fagan NP Unavailable [phone] Erlin Servin MD Unavailable [phone] Julian Valdez MD Unavailable [phone] Encounters Date Type Department Care Team Description 08/10/2024 Orders Only [facility] Scanning, Provider 08/06/2024 Telephone [facility] Bone Marrow Transplant [address] [facility] [address] [place] [address] Lyndsey Fagan NP 08/06/2024 Orders Only [facility] Bone Marrow Transplant [address] [facility] [address] [place] [address] Lyndsey Fagan NP Multiple myeloma, remission status unspecified (HCC) (Primary Dx) 08/06/2024 1:45 PM LITHOGRAPH PRINTER Clinical Support [facility] - Lab Collection [address] [facility] [address] [place] [address] 08/06/2024 1:00 PM LITHOGRAPH PRINTER - 08/06/2024 11:59 PM LITHOGRAPH PRINTER Hospital Encounter [facility] Radiology 1 [place] [address] Multiple myeloma, remission status unspecified (HCC) Discharge Disposition: Discharge to home or self care 08/06/2024 Orders Only [facility] Bone Marrow Transplant [address] [facility] Floor 6 [place] [address] Lyndsey Fagan NP JOHN (acute kidney injury) (Primary Dx) 08/06/2024 Orders Only [facility] Bone Marrow Transplant [address] [facility] Floor 6 [place] [address] Hermelindo Hill MD Multiple myeloma, remission status unspecified (HCC) (Primary Dx) 08/06/2024 7:15 AM LITHOGRAPH PRINTER Clinical Support [facility] - Lab Collection [facility] [address] [place] [address] Multiple myeloma in relapse (HCC) (Primary Dx); Multiple myeloma, remission status unspecified (HCC); JOHN (acute kidney injury) 08/06/2024 8:00 AM LITHOGRAPH PRINTER Infusion [facility] - Infusion [address] Floor [address] [place] [address] Multiple myeloma not having achieved remission (HCC) (Primary Dx); Hypogammaglobulinem ia 08/03/2024 Orders Only [facility] Bone Marrow Transplant [facility] [address] [address] Hermelindo Hill MD 08/03/2024 Orders Only [facility] Bone Marrow Transplant [address] [address] Hermelindo Hill MD 08/03/2024 Orders Only [facility] Bone Marrow Transplant [facility] [address] [address] Hermelindo Hill MD 08/03/2024 9:30 AM LITHOGRAPH PRINTER Infusion [facility] - Infusion [address] Floor [address] [place] [address] Multiple myeloma in relapse (HCC) (Primary Dx); Multiple myeloma in remission (HCC) 08/03/2024 7:30 AM LITHOGRAPH PRINTER Clinical Support [facility] - Lab Collection [address] [place] [address] 6 [place] [address] Multiple myeloma in remission (HCC); Multiple myeloma, remission status unspecified (HCC); Multiple myeloma in relapse (HCC) 08/03/2024 8:30 AM LITHOGRAPH PRINTER Office Visit [facility] Bone Marrow Transplant [address] [place] [phone] Hermelindo Hill MD Multiple myeloma, remission status unspecified (HCC) (Primary Dx); Multiple myeloma in remission (HCC); Multiple myeloma in relapse (HCC) 08/02/2024 Telephone [facility] Bone Marrow Transplant [address] [place] [address] Lyndsey Fagan NP 07/30/2024 Telephone [facility] Bone Marrow Transplant [address] [place] [phone] Hermelindo Hill MD 07/27/2024 Telephone [facility] Bone Marrow Transplant [address] [place] [phone] Hermelindo Hill MD 07/26/2024 Orders Only [facility] Bone Marrow Transplant [address] [place] [phone] Hermelindo Hill MD 07/26/2024 Orders Only [facility] Bone Marrow Transplant [address] [place] [phone] Hermelindo Hill MD 07/26/2024 Telephone [facility] Bone Marrow Transplant [address] [place] [phone] Margaret Kay RMA Medical Question/Miscellane ous 07/13/2024 Telephone [facility] Bone Marrow Transplant [address] [place] [phone] Fadumo Tobar RN 07/13/2024 10:00 AM LITHOGRAPH PRINTER Infusion [facility] - Infusion [address] [place] [address] Multiple myeloma in relapse (HCC) (Primary Dx); Multiple myeloma in remission (HCC) 07/13/2024 8:00 AM LITHOGRAPH PRINTER Clinical Support [facility] - Lab Collection [address] [place] [address] Multiple myeloma in remission (HCC); Multiple myeloma in relapse (HCC); Multiple myeloma, remission status unspecified (HCC) 07/13/2024 9:00 AM LITHOGRAPH PRINTER Office Visit [facility] Bone Marrow Transplant [facility] Floor [address] [place] [address] Hermelindo Hill MD Multiple myeloma, remission status unspecified (HCC) (Primary Dx); Multiple myeloma in remission (HCC); Hypogammaglobulinem ia 06/22/2024 Orders Only [facility] Bone Marrow Transplant [address] [facility] Floor [address] [place] [address] Hermelindo Hill MD 06/22/2024 Orders Only [facility] Bone Marrow Transplant [facility] Floor [address] [place] [address] Hermelindo Hill MD Multiple myeloma in remission (HCC) (Primary Dx); Multiple myeloma in relapse (HCC) 06/22/2024 8:30 AM LITHOGRAPH PRINTER Infusion [facility] - Infusion [address] [place] [address] Multiple myeloma, remission status unspecified (HCC) (Primary Dx); Multiple myeloma in remission (HCC); Multiple myeloma in relapse (HCC) 06/22/2024 7:00 AM LITHOGRAPH PRINTER Clinical Support [facility] - Lab Collection [address] [place] [address] Multiple myeloma, remission status unspecified (HCC); Multiple myeloma in relapse (HCC) 06/22/2024 8:00 AM LITHOGRAPH PRINTER Office Visit [facility] Bone Marrow Transplant [facility] Floor [address] [place] [address] Hermelindo Hill MD Multiple myeloma in relapse (HCC) (Primary Dx); Multiple myeloma, remission status unspecified (HCC); Hypogammaglobulinem ia; Obesity, morbid (HCC) 06/14/2024 Telephone [facility] Bone Marrow Transplant [address] [address] Kay ShalondaNAHUN [place] Reschedule from [...] MM Floor 9800 Treatment Plan Clinical Trial [id number] Dougebelisha Reason for Admission Study chemo C1D1 Transplant/IEC Planning BMT/IEC Plan HLA typing/IDMs Insurance Approvals/Issues Discharge Planning Anticipated Discharge Date 11/01 Patient Education Completed Issue to be Resolved Before Discharge Discharge Disposition Home Requests Sent to Case Management and/or Medical Assistants Post-Discharge Follow-Up Living Situation/Distance from [employer], [place] (45 min) Caregiver Self, Lab/Transfusion Frequency [...] is a risk of orbital injury and CLIENT SALES AND SERVICE OFFICER injury which could result in blindness or [...] this. Assessment & Plan (07/09/2022 7:42 PM LITHOGRAPH PRINTER): I talked with him quite a bit [...] weeks. Assessment & Plan (05/26/2022 4:16 PM LITHOGRAPH PRINTER): He does have pretty significant sinusitis and [...] day. Assessment & Plan (05/26/2022 4:17 PM LITHOGRAPH PRINTER): It is very possible that his cough could be due to sinusitis also. Hopefully that will continue to improve as we treat. He understands. Immunocompromised 11/13/2021 Multiple myeloma not having achieved remission 0 10/28/2021 Cancer Staging:Clinical stage from 10/16/2021:RISS Stage II(Dycv-6-thxsdwnfeapkz (mg/L): 3.7, Albumin (g/dL): 4.2, ISS: Stage [...] he got a TTE on 10/19 at [facility] however unclear why not currently in the system - May need to repeat TTE prior to treatment if results unavailable - Continue OI ppx with acyclovir 400mg BID - Begin trial [id number], a Bispecific Antibody Targeting BCMA treatment - [...] he got a TTE on 10/19 at [facility] however unclear why not currently in the system - May need to repeat TTE prior to treatment if results unavailable - Continue OI ppx with acyclovir 400mg BID - Begin trial [id number], a Bispecific Antibody Targeting BCMA treatment - [...] BID Assessment & Plan (05/31/2021 10:51 AM LITHOGRAPH PRINTER): Continue home pepcid, asx Renal mass 05/30/2021 Assessment & Plan (05/31/2021 10:51 AM LITHOGRAPH PRINTER): Admitted for observation after L renal mass [...] 07/17/2023 Assessment & Plan (05/31/2021 10:52 AM LITHOGRAPH PRINTER): Follows with oncology on daratumumab monotherapy -counts [...] blood in urine Follow up pathology from [facility] high-grade papillary urothelial carcinoma (grade 2) --follow [...] blood in urine Follow up pathology from [facility] high-grade papillary urothelial carcinoma (grade 2) --follow [...] supplementation Assessment & Plan (05/31/2021 10:51 AM LITHOGRAPH PRINTER): Stable on home losartan, nebivolol, triamterene-HCTZ Secondary [...] on file Legal Sex 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 LITHOGRAPH PRINTER Gender Identity Not on file Sexual Orientation Not on file Last Filed Vital Signs Vital Sign Reading Time Taken Comments Blood Pressure 157/83 08/06/2024 8:02 AM LITHOGRAPH PRINTER Pulse 63 08/06/2024 8:02 AM LITHOGRAPH PRINTER Temperature 37 C (98.6 F) 08/06/2024 8:02 AM LITHOGRAPH PRINTER Respiratory Rate 18 08/06/2024 8:02 AM LITHOGRAPH PRINTER Oxygen Saturation 99% 08/06/2024 8:02 AM LITHOGRAPH PRINTER Inhaled Oxygen Concentration - - Weight 127.4 kg (280 lb 13.9 oz) 08/06/2024 8:02 AM LITHOGRAPH PRINTER Height 175.3 cm (5' 9 ) 05/18/2024 8:28 AM LITHOGRAPH PRINTER Body Mass Index 41.48 05/18/2024 8:28 AM LITHOGRAPH PRINTER Plan of Treatment Not on file Medical Devices Implanted Type Area Housing Relocation Device Identifier Shelf Expiration Date Model / Serial / Lot Other - See Comments Other - see comments Right: Chest Wall Description:Upon arrival to IR, not accessed Procedures Procedure Name Priority Date/Time Associated Diagnosis Comments SCAN - LABS 08/10/2024 KIDNEY COMPLETE Schedule Routine, Read Routine (OP Routine) 08/06/2024 2:42 PM LITHOGRAPH PRINTER Multiple myeloma, remission status unspecified (HCC) URINALYSIS, MICROSCOPIC ONLY Routine 08/06/2024 9:19 AM LITHOGRAPH PRINTER JOHN (acute kidney injury) PROTEIN / CREATININE RATIO, URINE, RANDOM Routine 08/06/2024 9:19 AM LITHOGRAPH PRINTER JOHN (acute kidney injury) URINALYSIS AND REFLEX TO MICROSCOPIC Routine 08/06/2024 9:19 AM LITHOGRAPH PRINTER JOHN (acute kidney injury) EGFR Routine 08/06/2024 7:43 AM LITHOGRAPH PRINTER Multiple myeloma, remission status unspecified (HCC) DIFFERENTIAL AUTO Routine 08/06/2024 7:4 3 AM LITHOGRAPH PRINTER Multiple myeloma, remission status unspecified (HCC) LACTATE DEHYDROGENASE Routine 08/06/2024 7:43 AM LITHOGRAPH PRINTER Multiple myeloma, remission status unspecified (HCC) CBC WITH AUTO DIFFERENTIAL Routine 08/06/2024 7:43 AM LITHOGRAPH PRINTER Multiple myeloma, remission status unspecified (HCC) COMPREHENSIVE METABOLIC PANEL Routine 08/06/2024 7:43 AM LITHOGRAPH PRINTER Multiple myeloma, remission status unspecified (HCC) LIPID PANEL Routine 08/06/2024 7:43 AM LITHOGRAPH PRINTER Multiple myeloma, remission status unspecified (HCC) PSA DIAGNOSTIC Routine 08/06/2024 7:43 AM LITHOGRAPH PRINTER Multiple myeloma, remission status unspecified (HCC) PROTIME-INR STAT 08/03/2024 9:21 AM LITHOGRAPH PRINTER Multiple myeloma in relapse (HCC) APTT STAT 08/03/2024 9:21 AM LITHOGRAPH PRINTER Multiple myeloma in relapse (HCC) MAGNESIUM STAT 08/03/2024 7:40 AM LITHOGRAPH PRINTER Multiple myeloma in relapse (HCC) GAMMA GT STAT 08/03/2024 7:40 AM LITHOGRAPH PRINTER Multiple myeloma in relapse (HCC) EGFR Routine 08/03/2024 7:40 AM LITHOGRAPH PRINTER Multiple myeloma, remission status unspecified (HCC) DIFFERENTIAL AUTO Routine 08/03/2024 7:4 0 AM LITHOGRAPH PRINTER Multiple myeloma, remission status unspecified (HCC) CBC WITH AUTO DIFFERENTIAL Routine 08/03/2024 7:40 AM LITHOGRAPH PRINTER Multiple myeloma, remission status unspecified (HCC) COMPREHENSIVE METABOLIC PANEL Routine 08/03/2024 7:40 AM LITHOGRAPH PRINTER Multiple myeloma, remission status unspecified (HCC) IGA Routine 08/03/2024 7:40 AM LITHOGRAPH PRINTER Multiple myeloma, remission status unspecified (HCC) IGG Routine 08/03/2024 7:40 AM LITHOGRAPH PRINTER Multiple myeloma, remission status unspecified (HCC) IGM Routine 08/03/2024 7:40 AM LITHOGRAPH PRINTER Multiple myeloma, remission status unspecified (HCC) IMMUNOGLOBULIN FREE LIGHT CHAINS Routine 08/03/2024 7:40 AM LITHOGRAPH PRINTER Multiple myeloma, remission status unspecified (HCC) LACTATE DEHYDROGENASE Routine 08/03/2024 7:40 AM LITHOGRAPH PRINTER Multiple myeloma, remission status unspecified (HCC) PROTEIN ELECTROPHORESIS, WITH REFLEX, SERUM Routine 08/03/2024 7:40 AM LITHOGRAPH PRINTER Multiple myeloma, remission status unspecified (HCC) IMMUNOTYPING Routine 08/03/2024 7:40 AM LITHOGRAPH PRINTER Multiple myeloma, remission status unspecified (HCC) HEMOGLOBIN A1C Routine 08/03/2024 7:40 AM LITHOGRAPH PRINTER Multiple myeloma, remission status unspecified (HCC) URINALYSIS, MICROSCOPIC ONLY Routine 08/03/2024 7:30 AM LITHOGRAPH PRINTER Multiple myeloma, remission status unspecified (HCC) URINE CULTURE Routine 08/03/2024 7:30 AM LITHOGRAPH PRINTER URINALYSIS AND REFLEX TO MICROSCOPIC AND CULTURE Routine 08/03/2024 7:30 AM LITHOGRAPH PRINTER Multiple myeloma, remission status unspecified (HCC) EGFR STAT 07/13/2024 7:40 AM LITHOGRAPH PRINTER Multiple myeloma in relapse (HCC) DIFFERENTIAL AUTO STAT 07/13/2024 7:4 0 AM LITHOGRAPH PRINTER Multiple myeloma in relapse (HCC) IGA Routine 07/13/2024 7:40 AM LITHOGRAPH PRINTER Multiple myeloma, remission status unspecified (HCC) IGG Routine 07/13/2024 7:40 AM LITHOGRAPH PRINTER Multiple myeloma, remission status unspecified (HCC) IGM Routine 07/13/2024 7:40 AM LITHOGRAPH PRINTER Multiple myeloma, remission status unspecified (HCC) IMMUNOGLOBULIN FREE LIGHT CHAINS Routine 07/13/2024 7:40 AM LITHOGRAPH PRINTER Multiple myeloma, remission status unspecified (HCC) PROTEIN ELECTROPHORESIS, WITH REFLEX, SERUM Routine 07/13/2024 7:40 AM LITHOGRAPH PRINTER Multiple myeloma, remission status unspecified (HCC) IMMUNOTYPING Routine 07/13/2024 7:40 AM LITHOGRAPH PRINTER Multiple myeloma, remission status unspecified (HCC) LACTATE DEHYDROGENASE Routine 07/13/2024 7:40 AM LITHOGRAPH PRINTER Multiple myeloma in relapse (HCC) GAMMA GT STAT 07/13/2024 7:40 AM LITHOGRAPH PRINTER Multiple myeloma in relapse (HCC) MAGNESIUM STAT 07/13/2024 7:40 AM LITHOGRAPH PRINTER Multiple myeloma in relapse (HCC) COMPREHENSIVE METABOLIC PANEL STAT 07/13/2024 7:40 AM LITHOGRAPH PRINTER Multiple myeloma in relapse (HCC) CBC WITH AUTO DIFFERENTIAL STAT 07/13/2024 7:40 AM LITHOGRAPH PRINTER Multiple myeloma in relapse (HCC) APTT STAT 07/13/2024 7:24 AM LITHOGRAPH PRINTER Multiple myeloma in relapse (HCC) PROTIME-INR STAT 07/13/2024 7:24 AM LITHOGRAPH PRINTER Multiple myeloma in relapse (HCC) IMMUNOTYPING Routine 06/22/2024 7:20 AM LITHOGRAPH PRINTER Multiple myeloma, remission status unspecified (HCC) EGFR Routine 06/22/2024 7:20 AM LITHOGRAPH PRINTER Multiple myeloma, remission status unspecified (HCC) DIFFERENTIAL AUTO Routine 06/22/2024 7:2 0 AM LITHOGRAPH PRINTER Multiple myeloma, remission status unspecified (HCC) CBC WITH AUTO DIFFERENTIAL Routine 06/22/2024 7:20 AM LITHOGRAPH PRINTER Multiple myeloma, remission status unspecified (HCC) COMPREHENSIVE METABOLIC PANEL Routine 06/22/2024 7:20 AM LITHOGRAPH PRINTER Multiple myeloma, remission status unspecified (HCC) IGA Routine 06/22/2024 7:20 AM LITHOGRAPH PRINTER Multiple myeloma, remission status unspecified (HCC) IGG Routine 06/22/2024 7:20 AM LITHOGRAPH PRINTER Multiple myeloma, remission status unspecified (HCC) IGM Routine 06/22/2024 7:20 AM LITHOGRAPH PRINTER Multiple myeloma, remission status unspecified (HCC) IMMUNOGLOBULIN FREE LIGHT CHAINS Routine 06/22/2024 7:20 AM LITHOGRAPH PRINTER Multiple myeloma, remission status unspecified (HCC) LACTATE DEHYDROGENASE Routine 06/22/2024 7:20 AM LITHOGRAPH PRINTER Multiple myeloma, remission status unspecified (HCC) PROTEIN ELECTROPHORESIS, WITH REFLEX, SERUM Routine 06/22/2024 7:20 AM LITHOGRAPH PRINTER Multiple myeloma, remission status unspecified (HCC) MAGNESIUM STAT 06/22/2024 7:20 AM LITHOGRAPH PRINTER Multiple myeloma in relapse (HCC) GAMMA GT STAT 06/22/2024 7:20 AM LITHOGRAPH PRINTER Multiple myeloma in relapse (HCC) PROTIME-INR STAT 06/22/2024 7:20 AM LITHOGRAPH PRINTER Multiple myeloma in relapse (HCC) APTT STAT 06/22/2024 7:20 AM LITHOGRAPH PRINTER Multiple myeloma in relapse (HCC) HEPATITIS C ANTIBODY STAT 10/16/2021 9:50 AM CDT Multiple myeloma in relapse (HCC) from Last 3 Months or Most Recently Relevant to Health Maintenance Results * SCAN - LABS (08/10/2024) us Provider Scanning Final Result * US Kidney Complete (08/06/2024 2:42 PM LITHOGRAPH PRINTER) Anatomical Region Laterality Modality Kidney N/A Ultrasound 08/06/2024 3:27 PM LITHOGRAPH PRINTER Impressions 08/06/2024 3:27 PM LITHOGRAPH PRINTER 1. Mild nephromegaly with mild to moderate hydronephrosis bilaterally. 2. Incomplete bladder emptying with post void bladder residual of 397 mL. Electronically signed by: Dylan Tinajero M.D. Narrative 08/06/2024 3:27 PM LITHOGRAPH PRINTER EXAMINATION: COMPLETE RENAL SONOGRAM HISTORY: Rising creatinine. [...] by: Dylan Tinajero M.D. Hermelindo Butler MD [facility] PROCEDUR ES Final Result * (ABNORMAL) Urinalysis reflex to microscopic (08/06/2024 9:19 AM LITHOGRAPH PRINTER) Color, ur Straw Yellow Clarity, ur Clear Clear [facility] Specific gravity, ur 1.013 1.003 - 1.030 [facility] pH, urine 5.5 [facility] Comment: Interpretive Data U rine pH is affected by diet, medications, systemic acid-base disturbances, and renal tubular function. pH may affect urinary stone formation. For example, urine pH below 6.0 may help reduce the tendency for calcium phosphate stones and pH greater than 6.0 may reduce the tendency for uric acid stone formation. Source: [facility] Current Interpretive Data was last revised on 2017 Protein, ur ql Negative Negative [facility] Glucose, ur ql Negative Negative [facility] Ketones, ur Negative Negative [facility] Bilirubin, ur Negative Negative [facility] Blood, ur 3+(A) Negative [facility] Urobilinogen, ur <2.0 <2.0 mg/dL [facility] Nitrite, ur Negative Negative [facility] Leukocyte esterase, ur Trace(A) [facility] UA reflex comment Reflex to microscopic UA will be performed. [facility] Urine 08/06/2024 9:19 AM LITHOGRAPH PRINTER 08/06/2024 9:19 AM LITHOGRAPH PRINTER Lyndsey Fagan LAB URINE ORDERABLES [place] l Result Performing Organization Address [facility] [address]/[facility] de Phone Number [facility] [place] [address] * Protein / creatinine ratio, urine, random (08/06/2024 9:19 AM LITHOGRAPH PRINTER) Protein, ur, quant 7.9 mg/dL Comment: Interpretive Data No reference range established. Current interpretive data was last revised 2018. Creatinine Ur 77.4 mg/dL [facility] Comment: Interpretive Data No reference range established. Current interpretive data was last revised 2018. Protein/creatinin e ratio 102.1 0.0 - 180.0 mg/g CR [facility] Urine 08/06/2024 9:19 AM LITHOGRAPH PRINTER 08/06/2024 9:41 AM LITHOGRAPH PRINTER Lyndsey Fagan NP LAB URINE ORDERABLES [place] l Result Performing Organization Address [facility] [address]/[facility] de Phone Number [facility] [place] [address] * (ABNORMAL) Urinalysis, microscopic only (08/06/2024 9:19 AM LITHOGRAPH PRINTER) WBC, ur 6-10(A) 0 - 5 /HPF RBC, ur 21-50(A) 0 - 2 /HPF [facility] Bacteria, ur Trace(A) [facility] Mucous, ur Present(A) [facility] Urine 08/06/2024 9:19 AM LITHOGRAPH PRINTER 08/06/2024 9:19 AM LITHOGRAPH PRINTER Lyndsey Fagan NP LAB URINE ORDERABLES [place] l Result [facility] Department [place] [employer] [place] [address] * (ABNORMAL) eGFR (08/06/2024 7:43 AM LITHOGRAPH PRINTER) Pathologist [facility] eGFR 31(L) >=60 mL/min/1. 73 m2 Comment: [...] last reviewed 2021. Blood 08/06/2024 7:43 AM LITHOGRAPH PRINTER 08/06/2024 7:52 AM LITHOGRAPH PRINTER us Hermelindo Butler MD LAB BLOOD ORDER ELANA Final Result Performing Organization Address City/[facility] [address]/ZIP Co de Phone Number [facility] [place] [address] * (ABNORMAL) Differential, auto (08/06/2024 7:43 AM LITHOGRAPH PRINTER) Neutrophil abs 5.4 1.5 - 6.5 K/cumm Comment:Testing performed by : [facility], [address] [place] [address] Lymphocyte abs 0.8 0.8 - 3.3 K/cumm [facility] Comment:Testing performed by : [facility], [address] [place] [address] Monocyte abs 0.5 0.2 - 0.8 K/cumm [facility] Comment:Testing performed by : [facility], [address] [place] [address] Eosinophil abs 0.7(H) 0.0 - 0.5 K/cumm [facility] Comment:Testing performed by : [facility], [address] [place] [address] Basophil abs 0.0 0.0 - 0.1 K/cumm [facility] Comment:Testing performed by : [facility], [address] [place] [phone] Neutrophil pct 72.4 % [facility] Comment: Interpretive Data Percent cell count reference ranges are not reported, since discordance with absolute values may lead to misinterpretation of CBC data. Current Interpretive Data was last revised on 2017. Testing performed by: [facility], [address] [place] [phone] Lymphocyte pct 10.4 % [facility] Comment: Interpretive Data Percent cell count reference ranges are not reported, since discordance with absolute values may lead to misinterpretation of CBC data. Current Interpretive Data was last revised on 2017. Testing performed by: [facility], [address] [place], [place] [phone] Monocyte pct 7.3 % [facility] Comment: Interpretive Data Percent cell count reference ranges are not reported, since discordance with absolute values may lead to misinterpretation of CBC data. Current Interpretive Data was last revised on 2017. Testing performed by: [facility], [address] [place] [phone] Eosinophil pct 9.4 % [facility] Comment: Interpretive Data Percent cell count reference ranges are not reported, since discordance with absolute values may lead to misinterpretation of CBC data. Current Interpretive Data was last revised on 2017. Testing performed by: [facility], [address] [place] [phone] Basophil pct 0.5 % MT [facility] Comment: Interpretive Data Percent cell count reference ranges are not reported, since discordance with absolute values may lead to misinterpretation of CBC data. Current Interpretive Data was last revised on 2017. Testing performed by: [facility], [address] [place] [address] Blood 08/06/2024 7:43 AM LITHOGRAPH PRINTER 08/06/2024 7:51 AM LITHOGRAPH PRINTER Hermelindo Butler MD LAB BLOOD ORDER ELANA Final Result [facility] Department of Laboratories [place], [place] [id number] * (ABNORMAL) CBC with auto differential (08/06/2024 7:43 AM LITHOGRAPH PRINTER) WBC 7.5 3.8 - 9.9 K/cumm Comment:Testing performed by : [facility], [address] [place] [address] Hgb 13.7 13.0 - 17.5 g/dL MT [facility] Comment:Testing performed by : [facility], [address] [place] [address] Hct 40.6 38.9 - 50.3 % MT SUAREZ Comment:Testing performed by : [facility], [address] [place] [address] Plt 169 150 - 400 K/cumm MT SUAREZ Comment:Testing performed by : [facility], [address] [place] [phone] MPV 7.5 6.8 - 10.4 fL MT [facility] Comment:Testing performed by : [facility], [address] [place], [place] [phone] RBC 4.37 4.30 - 5.80 M/cumm MT SUAREZ Comment:Testing performed by : [facility], [address] [place], [place] [phone] MCV 92.7 81.3 - 96.4 fL MT SUAREZ Comment:Testing performed by : [facility], [address] [place], [place] [phone] MCH 31.3 27.1 - 33.3 pg MT SUAREZ Comment:Testing performed by : [facility], [address] [place], [place] [phone] MCHC 33.8 32.3 - 35.7 g/dL MT [facility]Z Comment:Testing performed by : [facility], [address] [place], [place] [phone] RDW CV 16.5(H) 11.1 - 14.9 % MT SUAREZ Comment:Testing performed by : [facility], [address] [place] [address] NRBC abs 0.00 0.00 - 0.01 K/cumm MT SUAREZ Comment:Testing performed by : [facility], [address] [place] [address] Blood 08/06/2024 7:43 AM LITHOGRAPH PRINTER 08/06/2024 7:51 AM LITHOGRAPH PRINTER us Hermelindo Butler MD LAB BLOOD ORDER ELANA Final Result MT [facility] Department [place] [address] * (ABNORMAL) PSA diagnostic (08/06/2024 7:43 AM LITHOGRAPH PRINTER) PSA-Total 6.28(H) <=6.20 ng/mL Comment: Interpretive Data [...] last revised 21. Blood 08/06/2024 7:43 AM LITHOGRAPH PRINTER 08/06/2024 7:52 AM LITHOGRAPH PRINTER Hermelindo Butler MD LAB BLOOD ORDER ELANA Final Result Performing Organization Address [facility] [employer] de Phone Number [facility] [place] [address] * Lactate dehydrogenase (LD) (08/06/2024 7:43 AM LITHOGRAPH PRINTER) Lactate dehydrogenase (LDH) 161 100 - 250 Units/L Blood 08/06/2024 7:43 AM LITHOGRAPH PRINTER 08/06/2024 7:52 AM LITHOGRAPH PRINTER Hermelindo Butler MD LAB BLOOD ORDER ELANA Final Result Performing Organization Address City/[facility] de Phone Number [facility] [place] [address] * (ABNORMAL) Lipid panel (08/06/2024 7:43 AM LITHOGRAPH PRINTER) Cholesterol 128 30 - 199 mg/dL Comment: [...] revised on 2018. Triglycerides 149 <=149 mg/dL [facility] Comment: Interpretive Data Ages < or = [...] revised on 2018. HDL 38(L) >=40 mg/dL [facility] Comment: Interpretive Data Ages < or = [...] on 2018. LDL, calculated 64 <=129 mg/dL [facility] Comment: Interpretive Data Ages < or = [...] NCEP Expert Panel. Circulation 2004;110:227 3. Luis Nielsen et al. NATALIIA Cardiol. 2019October 07;5(5):540548. doi: 10.1001/jamacardio.2020.0013 Current Interpretive Data was last revised on 2024. Non-HDL Cholesterol 90 mg/dL [facility] Comment: Interpretive Data Ages < or = [...] last revised on 2018. Chol/HDL ratio 3 [facility] Blood 08/06/2024 7:43 AM LITHOGRAPH PRINTER 08/06/2024 7:52 AM LITHOGRAPH PRINTER Hermelindo Butler MD LAB BLOOD ORDER ELANA Final Result [facility] Department [place] [address] * (ABNORMAL) Comprehensive metabolic panel (08/06/2024 7:43 AM LITHOGRAPH PRINTER) Sodium 145 135 - 145 mmol/L Potassium, pl 4.2 3.3 - 4.9 mmol/L [facility] Chloride 108 97 - 110 mmol/L [facility] CO2 30 22 - 32 mmol/L [facility] Anion gap 7 2 - 15 mmol/L [facility] BUN 51(H) 6 - 25 mg/dL [facility] Creatinine 2.21(H) 0.80 - 1.30 mg/dL [facility] Glucose 113 70 - 199 mg/dL [facility] Comment: Interpretive Data Fasting glucose >/= 126 [...] Calcium 9.2 8.5 - 10.3 mg/dL [facility] Bilirubin, total 0.5 0.1 - 1.2 mg/dL [facility] Protein, pl 6.2(L) 6.5 - 8.5 g/dL [facility] Albumin 4.1 3.5 - 5.0 g/dL [facility] Alk phos 61 40 - 130 Units/L [facility] ALT 15 7 - 55 Units/L [facility] AST 16 10 - 50 Units/L [facility] Blood 08/06/2024 7:43 AM LITHOGRAPH PRINTER 08/06/2024 7:52 AM LITHOGRAPH PRINTER Hermelindo Butler MD LAB BLOOD ORDER ELANA Final Result Performing Organization Address [facility] [employer] de Phone Number [facility] [employer] [place] [address] * aPTT (08/03/2024 9:21 AM LITHOGRAPH PRINTER) aPTT 31 28 - 38 sec Comment: Interpretive Data Heparin therapeutic range: 66.0 - 100.0 seconds. Range based on correlation with therapeutic heparin activity range of 0.3 - 0.7 Units/mL. Current interpretive data was last revised on 2023. Blood 08/03/2024 9:21 AM LITHOGRAPH PRINTER 08/03/2024 9:47 AM LITHOGRAPH PRINTER Hermelindo Butler MD LAB BLOOD ORDER ELANA Final Result Performing Organization Address City/[facility] [address]/[facility] [employer] de Phone Number [facility] Department of [employer] [place] [address] * Protime-INR (08/03/2024 9:21 AM LITHOGRAPH PRINTER) Pathologist [facility] PT 11.5 9.7 - 13.0 sec INR 1.06 0.90 - 1.20 [facility] Comment: Interpretive data Oral anticoagulant therapeutic ranges: Venous thromboembolism prophylaxis or treatment: 2.0-3.0 CARDIOLOGY Standard range: 2.0-3.0 High-intensity range: 2.5-3.5 Refer to indication-specific guidelines for appropriate target ranges for prosthetic heart valve replacement. Current interpretive data was last revised on 2019. Blood 08/03/2024 9:21 AM LITHOGRAPH PRINTER 08/03/2024 9:47 AM LITHOGRAPH PRINTER Hermelindo Butler MD LAB BLOOD ORDER ELANA Final Result Performing Organization Address [facility] [employer] de Phone Number [facility] [place] [address] * Immunotyping, serum with interpretation (08/03/2024 7:40 AM LITHOGRAPH PRINTER) Pathologist [facility] Immunosubtraction Please see comment Comment: NO PARAPROTEIN DETECTED Reviewed and signed by Hermelindo Mcnulty MD 08/04/2024 Blood 08/03/2024 7:40 AM LITHOGRAPH PRINTER 08/03/2024 8:24 AM LITHOGRAPH PRINTER Hermelindo Butler MD LAB BLOOD ORDER ELANA Final Result Performing Organization Address City/[facility] de Phone Number [facility] Department [place] [address] * (ABNORMAL) eGFR (08/03/2024 7:40 AM LITHOGRAPH PRINTER) [facility] eGFR 37(L) >=60 mL/min/1. 73 m2 Comment: [...] last reviewed 2021. Blood 08/03/2024 7:40 AM LITHOGRAPH PRINTER 08/03/2024 7:49 AM LITHOGRAPH PRINTER Hermelindo Butler MD LAB BLOOD ORDER ELANA Final Result [facility] [place] [address] * (ABNORMAL) Differential, auto (08/03/2024 7:40 AM LITHOGRAPH PRINTER) Neutrophil abs 5.6 1.5 - 6.5 K/cumm Comment:Testing performed by : [facility], [address] [place], [place] [phone] Lymphocyte abs 0.9 0.8 - 3.3 K/cumm MT [facility] Comment:Testing performed by : [facility], [address] [place], [place] [phone] Monocyte abs 0.6 0.2 - 0.8 K/cumm [facility] Comment:Testing performed by : [facility], [address] [place], [place] [phone] Eosinophil abs 0.8(H) 0.0 - 0.5 K/cumm [facility] Comment:Testing performed by : [facility], [address] [place] [phone] Basophil abs 0.0 0.0 - 0.1 K/cumm [facility] Comment:Testing performed by : [facility], [address] [place] [phone] Neutrophil pct 70.4 % [facility] Comment: Interpretive Data Percent cell count reference ranges are not reported, since discordance with absolute values may lead to misinterpretation of CBC data. Current Interpretive Data was last revised on 2017. Testing performed by: [facility], [address] [place] [phone] Lymphocyte pct 11.2 % [facility] Comment: Interpretive Data Percent cell count reference ranges are not reported, since discordance with absolute values may lead to misinterpretation of CBC data. Current Interpretive Data was last revised on 2017. Testing performed by: [facility], [address] [place] [phone] Monocyte pct 7.7 % [facility] Comment: Interpretive Data Percent cell count reference ranges are not reported, since discordance with absolute values may lead to misinterpretation of CBC data. Current Interpretive Data was last revised on 2017. Testing performed by: [facility], [address] [place] [phone] Eosinophil pct 10.1 % [facility] Comment: Interpretive Data Percent cell count reference ranges are not reported, since discordance with absolute values may lead to misinterpretation of CBC data. Current Interpretive Data was last revised on 2017. Testing performed by: [facility], [address] [place] [phone] Basophil pct 0.6 % [facility] Comment: Interpretive Data Percent cell count reference ranges are not reported, since discordance with absolute values may lead to misinterpretation of CBC data. Current Interpretive Data was last revised on 2017. Testing performed by: [facility], [address] [place] [phone] Blood 08/03/2024 7:40 AM LITHOGRAPH PRINTER 08/03/2024 7:47 AM LITHOGRAPH PRINTER Hermelindo Butler MD LAB BLOOD ORDER ELANA Final Result [facility] [place] [address] * (ABNORMAL) Immunoglobulin free light chains (08/03/2024 7:40 AM LITHOGRAPH PRINTER) Pathologist [facility] Greenbush/Lambda ratio [facility] See Comment 0.26 - 1.65 Comment: Unable to calculate exact result. Interpretive Data The Binding Site FreeLite assay procedure was used. Results from different manufacturers or methods may not be comparable. Serial testing should be performed using the same methods and instrumentation. Current Interpretive Data was last revised on 2023. [place] free light chain [facility] <0.06(L) 0.33 - 1.94 mg/dL [facility] Comment: Interpretive Data The Binding Site FreeLite assay procedure was used. Results from different manufacturers or methods may not be comparable. Serial testing should be performed using the same methods and instrumentation. Current Interpretive Data was last revised on 2023. Lambda free light chain [facility] <0.13(L) 0.57 - 2.63 mg/dL [facility] Comment: Interpretive Data The Binding Site FreeLite assay procedure was used. Results from different manufacturers or methods may not be comparable. Serial testing should be performed using the same methods and instrumentation. Current Interpretive Data was last revised on 2023. Blood 08/03/2024 7:40 AM LITHOGRAPH PRINTER 08/03/2024 8:24 AM LITHOGRAPH PRINTER Hermelindo Butler MD LAB BLOOD ORDER ELANA Final Result [facility] [place] [address] * (ABNORMAL) CBC with auto differential (08/03/2024 7:40 AM LITHOGRAPH PRINTER) [facility] WBC 7.9 3.8 - 9.9 K/cumm Comment:Testing performed by : [facility], [address] [place] [phone] Hgb 13.7 13.0 - 17.5 g/dL MT [facility] Comment:Testing performed by : [facility], [address] [place] [address] Hct 41.5 38.9 - 50.3 % [facility] Comment:Testing performed by : [facility], [address] [place], [place] [phone] Plt 163 150 - 400 K/cumm [facility] Comment:Testing performed by : [facility], [address] [place] [address] MPV 7.8 6.8 - 10.4 fL [facility] Comment:Testing performed by : [facility], [address] [place], [place] [phone] RBC 4.50 4.30 - 5.80 M/cumm [facility] Comment:Testing performed by : [facility], [address] [place], [place] [phone] MCV 92.1 81.3 - 96.4 fL [facility] Comment:Testing performed by : [facility], [address] [place], [place] [phone] MCH 30.4 27.1 - 33.3 pg [facility] Comment:Testing performed by : [facility], [address] [place] [address] MCHC 33.0 32.3 - 35.7 g/dL [facility] Comment:Testing performed by : [facility], [address] [place] [address] RDW CV 16.6(H) 11.1 - 14.9 % [facility] Comment:Testing performed by : [facility], [address] [place] [address] NRBC abs 0.00 0.00 - 0.01 K/cumm [facility] Comment:Testing performed by : [facility], [address] [place] [address] Blood 08/03/2024 7:40 AM LITHOGRAPH PRINTER 08/03/2024 7:47 AM LITHOGRAPH PRINTER Hermelindo Butler MD LAB BLOOD ORDER ELANA Final Result Performing Organization Address City/[facility]/ZIP Co de Phone Number [facility] [place] [address] * (ABNORMAL) Protein electrophoresis with reflex, serum with interpretation (08/03/2024 7:40 AM LITHOGRAPH PRINTER) [facility] Protein, sr 5.7(L) 6.2 - 8.2 g/dL Albumin 3.8 3.2 - 5.0 g/dL [facility] Alpha-1 globulin 0.3 0.2 - 0.4 g/dL [facility] Alpha-2 globulin 0.6 0.5 - 1.0 g/dL [facility] Beta-1 globulin 0.4 0.3 - 0.6 g/dL [facility] Beta-2 globulin 0.3 0.2 - 0.6 g/dL [facility] Gamma globulin 0.2(L) 0.5 - 1.7 g/dL [facility] SPEP interp Please see comment [facility] Comment: No apparent monoclonal peak Decreased gamma globulins Electrophoretic pattern appears similar to previous sample 07/14/24 *See immunotyping for further information Reviewed and signed by Hermelindo Mcnulty MD 08/04/2024 Blood 08/03/2024 7:40 AM LITHOGRAPH PRINTER 08/03/2024 8:24 AM LITHOGRAPH PRINTER Hermelindo Butler MD LAB BLOOD ORDER ELANA Final Result [facility] [place] [address] * Magnesium (08/03/2024 7:40 AM LITHOGRAPH PRINTER) [facility] Magnesium 2.2 1.4 - 2.5 mg/dL Blood 08/03/2024 7:40 AM LITHOGRAPH PRINTER 08/03/2024 9:36 AM LITHOGRAPH PRINTER Hermelindo Butler MD LAB BLOOD ORDER ELANA Final Result Performing Organization Address [facility] [employer] de Phone Number [facility] [employer] [place] [address] * Lactate dehydrogenase (LD) (08/03/2024 7:40 AM LITHOGRAPH PRINTER) [facility] Lactate dehydrogenase (LDH) 172 100 - 250 Units/L Blood 08/03/2024 7:40 AM LITHOGRAPH PRINTER 08/03/2024 7:49 AM LITHOGRAPH PRINTER Hermelindo Butler MD LAB BLOOD ORDER ELANA Final Result Performing Organization Address [facility] [place] [address] * (ABNORMAL) Hemoglobin A1c (08/03/2024 7:40 AM LITHOGRAPH PRINTER) [facility] Hgb A1C 5.8(H) 4.0 - 5.6 % Estimated Average Glucose 120 mg/dL [facility] Comment: The ADA recommends reporting an estimated Average Glucose (eAG) with all Hemoglobin A1c results using the equation derived from a study of 507 normal and diabetic adults. Minority populations were underrepresented and children were not included. (Diabetes Care 2020; 43(S1): S66-S76). The eAG is not equivalent to a fasting glucose. Blood 08/03/2024 7:40 AM LITHOGRAPH PRINTER 08/03/2024 7:49 AM LITHOGRAPH PRINTER Lyndsey Fagan NP LAB BLOOD ORDERABLES Angeles l Result Performing Organization Address [facility] [address] [facility] Co de Phone Number [facility] [employer] [place] [address] * Gamma GT (08/03/2024 7:40 AM LITHOGRAPH PRINTER) [facility] GGT 23 10 - 50 Units/L Blood 08/03/2024 7:40 AM LITHOGRAPH PRINTER 08/03/2024 9:36 AM LITHOGRAPH PRINTER us Hermelindo Butler MD LAB BLOOD ORDER ELANA Final Result Performing Organization Address [facility] de Phone Number [facility] [place] [address] * (ABNORMAL) IgA (08/03/2024 7:40 AM LITHOGRAPH PRINTER) Immunoglobulin A <50(L) 70 - 400 mg/dL Blood 08/03/2024 7:40 AM LITHOGRAPH PRINTER 08/03/2024 8:09 AM LITHOGRAPH PRINTER us Hermelindo Butler MD LAB BLOOD ORDER ELANA Final Result Performing Organization Address [place] Phone Number [facility] [place] [address] * (ABNORMAL) IgM (08/03/2024 7:40 AM LITHOGRAPH PRINTER) Immunoglobulin M <25(L) 40 - 230 mg/dL Blood 08/03/2024 7:40 AM LITHOGRAPH PRINTER 08/03/2024 8:09 AM LITHOGRAPH PRINTER us Hermelindo Butler MD LAB BLOOD ORDER ELANA Final Result Performing Organization Address [facility] de Phone Number [facility] [place] [address] * (ABNORMAL) IgG (08/03/2024 7:40 AM LITHOGRAPH PRINTER) Immunoglobulin G <300(L) 700 - 1,600 mg/dL Blood 08/03/2024 7:40 AM LITHOGRAPH PRINTER 08/03/2024 8:09 AM LITHOGRAPH PRINTER us Hermelindo Butler MD LAB BLOOD ORDER ELANA Final Result Performing Organization Address City/[facility] de Phone Number [facility] [place] [address] * (ABNORMAL) Comprehensive metabolic panel (08/03/2024 7:40 AM LITHOGRAPH PRINTER) Sodium 141 135 - 145 mmol/L Potassium, pl 4.0 3.3 - 4.9 mmol/L [facility] Chloride 104 97 - 110 mmol/L [facility] CO2 30 22 - 32 mmol/L [facility] Anion gap 7 2 - 15 mmol/L [facility] BUN 47(H) 6 - 25 mg/dL [facility] Creatinine 1.92(H) 0.80 - 1.30 mg/dL [facility] Glucose 116 70 - 199 mg/dL [facility] Comment: Interpretive Data Fasting glucose >/= 126 [...] 2022. Calcium 9.2 8.5 - 10.3 mg/dL [facility] Bilirubin, total 0.7 0.1 - 1.2 mg/dL [facility] Protein, pl 6.2(L) 6.5 - 8.5 g/dL [facility] Albumin 3.9 3.5 - 5.0 g/dL [facility] Alk phos 63 40 - 130 Units/L [facility] ALT 15 7 - 55 Units/L [facility] AST 17 10 - 50 Units/L [facility] Blood 08/03/2024 7:40 AM LITHOGRAPH PRINTER 08/03/2024 7:49 AM LITHOGRAPH PRINTER Hermelindo Butler MD LAB BLOOD ORDER ELANA Final Result [facility] [place] [address] * (ABNORMAL) Urinalysis reflex to microscopic and culture Urine, clean voided (08/03/2024 7:30 AM LITHOGRAPH PRINTER) Color, ur Straw Yellow Clarity, ur Clear Clear [facility] Specific gravity, ur 1.012 1.003 - 1.030 [facility] pH, urine 5.5 [facility] Comment: Interpretive Data U rine pH is affected by diet, medications, systemic acid-base disturbances, and renal tubular function. pH may affect urinary stone formation. For example, urine pH below 6.0 may help reduce the tendency for calcium phosphate stones and pH greater than 6.0 may reduce the tendency for uric acid stone formation. Source: [facility] Current Interpretive Data was last revised on 2017 Protein, ur ql Negative Negative [facility] Glucose, ur ql Negative Negative [facility] Ketones, ur Negative Negative [facility] Bilirubin, ur Negative Negative [facility] Blood, ur 2+(A) Negative [facility] Urobilinogen, ur <2.0 <2.0 mg/dL [facility] Nitrite, ur Negative Negative [facility] Leukocyte esterase, ur Negative [facility] UA reflex comment Reflex to microscopic UA will be performed. [facility] Urine, clean voided 08/03/2024 7:30 AM LITHOGRAPH PRINTER 08/03/2024 7:30 AM LITHOGRAPH PRINTER Lyndsey Fagan [facility] LAB MICROBIOLOGY - GENERA L ORDERABLES Final Result [facility] [place] [address] * (ABNORMAL) Urinalysis, microscopic only (08/03/2024 7:30 AM LITHOGRAPH PRINTER) WBC, ur 6-10(A) 0 - 5 /HPF RBC, ur 11-20(A) 0 - 2 /HPF [facility] Epithelial cells, squamous, ur 1-5 0 - 5 /HPF [facility] Bacteria, ur Trace(A) [facility] Culture Reflex Comment Reflex conditions for urine culture (WBC >10) not met. [facility] Urine, clean voided 08/03/2024 7:30 AM LITHOGRAPH PRINTER 08/03/2024 7:30 AM LITHOGRAPH PRINTER Lyndsey Fagan NP LAB URINE ORDERABLES [place] l Result Performing Organization Address [facility] [facility] [address]/[employer] de Phone Number [facility] [place] [address] * Urine culture Urine, clean voided (08/03/2024 7:30 AM LITHOGRAPH PRINTER) Report Final Report: No growth Urine, clean voided 08/03/2024 7:30 AM LITHOGRAPH PRINTER 08/03/2024 9:59 AM LITHOGRAPH PRINTER Narrative [facility] - 08/04/2024 11:14 AM LITHOGRAPH PRINTER Testing performed by [facility] ([phone]) Hermelindo Butler MD LAB MICROBIOLOG Y - GENERAL ORDERABLES Final Result Performing Organization Address [facility] [address]/[employer] de Phone Number [facility] Department [employer] [place] [address] * Immunotyping, serum with interpretation (07/13/2024 7:40 AM LITHOGRAPH PRINTER) Immunosubtraction Please see comment Comment: NO PARAPROTEIN DETECTED Reviewed and signed by Rufino Huff MD, PhD 07/14/2024 Blood 07/13/2024 7:40 AM LITHOGRAPH PRINTER 07/13/2024 8:42 AM LITHOGRAPH PRINTER Hermelindo Butler MD LAB BLOOD ORDER ELANA Final Result Performing Organization Address [facility] [address]/[employer] de Phone Number [facility] [place] [address] * (ABNORMAL) eGFR (07/13/2024 7:40 AM LITHOGRAPH PRINTER) Pathologist [facility] eGFR 57(L) >=60 mL/min/1. 73 m2 Comment: [...] last reviewed 2021. Blood 07/13/2024 7:40 AM LITHOGRAPH PRINTER 07/13/2024 7:47 AM LITHOGRAPH PRINTER Hermelindo Butler MD LAB BLOOD ORDER ELANA Final Result [facility] [place] [address] * Differential, auto (07/13/2024 7:40 AM LITHOGRAPH PRINTER) [facility] Neutrophil abs 5.4 1.5 - 6.5 K/cumm Comment:Testing performed by : [facility], [address] [place] [phone] Lymphocyte abs 0.9 0.8 - 3.3 K/cumm [facility] Comment:Testing performed by : [facility], [address] [place] [phone] Monocyte abs 0.5 0.2 - 0.8 K/cumm [facility] Comment:Testing performed by : [facility], [address] [place] [phone] Eosinophil abs 0.5 0.0 - 0.5 K/cumm [facility] Comment:Testing performed by : [facility], [address] [place] [phone] Basophil abs 0.0 0.0 - 0.1 K/cumm [facility] Comment:Testing performed by : [facility], [address] [place] [phone] Neutrophil pct 73.6 % [facility] Comment: Interpretive Data Percent cell count reference ranges are not reported, since discordance with absolute values may lead to misinterpretation of CBC data. Current Interpretive Data was last revised on 2017. Testing performed by: [facility], [address] [place] [phone] Lymphocyte pct 12.0 % [facility] Comment: Interpretive Data Percent cell count reference ranges are not reported, since discordance with absolute values may lead to misinterpretation of CBC data. Current Interpretive Data was last revised on 2017. Testing performed by: [facility], [address] [place] [phone] Monocyte pct 7.4 % [facility] Comment: Interpretive Data Percent cell count reference ranges are not reported, since discordance with absolute values may lead to misinterpretation of CBC data. Current Interpretive Data was last revised on 2017. Testing performed by: [facility], [address] [place] [phone] Eosinophil pct 6.5 % [facility] Comment: Interpretive Data Percent cell count reference ranges are not reported, since discordance with absolute values may lead to misinterpretation of CBC data. Current Interpretive Data was last revised on 2017. Testing performed by: [facility], [address] [place] [phone] Basophil pct 0.5 % [facility] Comment: Interpretive Data Percent cell count reference ranges are not reported, since discordance with absolute values may lead to misinterpretation of CBC data. Current Interpretive Data was last revised on 2017. Testing performed by: [facility], [facility] [place] [phone] Blood 07/13/2024 7:40 AM LITHOGRAPH PRINTER 07/13/2024 7:46 AM LITHOGRAPH PRINTER Hermelindo Butler MD LAB BLOOD ORDER ELANA Final Result [facility] [place] [address] * (ABNORMAL) Immunoglobulin free light chains (07/13/2024 7:40 AM LITHOGRAPH PRINTER) [place]/Lambda ratio [facility] See Comment 0.26 - 1.65 Comment: Unable to calculate exact result. Interpretive Data The Binding Site FreeLite assay procedure was used. Results from different manufacturers or methods may not be comparable. Serial testing should be performed using the same methods and instrumentation. Current Interpretive Data was last revised on 2023. [place] free light chain [facility] <0.06(L) 0.33 - 1.94 mg/dL [facility] Comment: Interpretive Data The Binding Site FreeLite assay procedure was used. Results from different manufacturers or methods may not be comparable. Serial testing should be performed using the same methods and instrumentation. Current Interpretive Data was last revised on 2023. Lambda free light chain [facility] <0.13(L) 0.57 - 2.63 mg/dL [facility] Comment: Interpretive Data The Binding Site FreeLite assay procedure was used. Results from different manufacturers or methods may not be comparable. Serial testing should be performed using the same methods and instrumentation. Current Interpretive Data was last revised on 2023. Blood 07/13/2024 7:40 AM LITHOGRAPH PRINTER 07/13/2024 8:42 AM LITHOGRAPH PRINTER Hermelindo Butler MD LAB BLOOD ORDER ELANA Final Result [facility] [place] [address] * (ABNORMAL) CBC with auto differential (07/13/2024 7:40 AM LITHOGRAPH PRINTER) WBC 7.4 3.8 - 9.9 K/cumm Comment:Testing performed by : [facility], [address] [place] [address] Hgb 14.4 13.0 - 17.5 g/dL [facility] Comment:Testing performed by : [facility], [address] [place] [address] Hct 44.1 38.9 - 50.3 % [facility] Comment:Testing performed by : [facility], [address] [place] [address] Plt 174 150 - 400 K/cumm [facility] Comment:Testing performed by : [facility], [address] [place] [address] MPV 7.5 6.8 - 10.4 fL [facility] Comment:Testing performed by : [facility], [address] [place] [address] RBC 4.75 4.30 - 5.80 M/cumm [facility] Comment:Testing performed by : [facility], [address] [place] [address] MCV 92.8 81.3 - 96.4 fL [facility] Comment:Testing performed by : [facility], [address] [place] [address] MCH 30.2 27.1 - 33.3 pg [facility] Comment:Testing performed by : [facility], [address] [place] [address] MCHC 32.6 32.3 - 35.7 g/dL [facility] Comment:Testing performed by : [facility], [address] [place] [address] RDW CV 16.2(H) 11.1 - 14.9 % [facility] Comment:Testing performed by : [facility], [address] [place] [phone] NRBC abs 0.00 0.00 - 0.01 K/cumm [facility] Comment:Testing performed by : [facility], [address] [place] [phone] Blood 07/13/2024 7:40 AM LITHOGRAPH PRINTER 07/13/2024 7:46 AM LITHOGRAPH PRINTER Hermelindo Butler MD LAB BLOOD ORDER ELANA Final Result Performing Organization Address City/[facility] [address]/ZIP Co de Phone Number [facility] Department [place] [employer] [place] [address] * (ABNORMAL) Protein electrophoresis with reflex, serum with interpretation (07/13/2024 7:40 AM LITHOGRAPH PRINTER) Pathologist [facility] Protein, sr 5.7(L) 6.2 - 8.2 g/dL Albumin 3.7 3.2 - 5.0 g/dL [facility] Alpha-1 globulin 0.3 0.2 - 0.4 g/dL [facility] Alpha-2 globulin 0.6 0.5 - 1.0 g/dL [facility] Beta-1 globulin 0.4 0.3 - 0.6 g/dL [facility] Beta-2 globulin 0.3 0.2 - 0.6 g/dL [facility] Gamma globulin 0.3(L) 0.5 - 1.7 g/dL [facility] SPEP interp Please see comment [facility] Comment: No apparent monoclonal peak Decreased gamma globulins Electrophoretic pattern appears similar to previous sample 06/23/24 See immunotyping for further information Reviewed and signed by Rufino Huff MD, PhD 07/14/2024 Blood 07/13/2024 7:40 AM LITHOGRAPH PRINTER 07/13/2024 8:42 AM LITHOGRAPH PRINTER Hermelindo Butler MD LAB BLOOD ORDER ELANA Final Result [facility] [place] [address] * Magnesium (07/13/2024 7:40 AM LITHOGRAPH PRINTER) Pathologist [facility] Magnesium 2.2 1.4 - 2.5 mg/dL Blood 07/13/2024 7:40 AM LITHOGRAPH PRINTER 07/13/2024 7:47 AM LITHOGRAPH PRINTER Hermelindo Butler MD LAB BLOOD ORDER ELANA Final Result Performing Organization Address City/[facility] [address]/[employer] de Phone Number [facility] [place] [address] * Lactate dehydrogenase (LD) (07/13/2024 7:40 AM LITHOGRAPH PRINTER) [facility] Lactate dehydrogenase (LDH) 152 100 - 250 Units/L Blood 07/13/2024 7:40 AM LITHOGRAPH PRINTER 07/13/2024 7:47 AM LITHOGRAPH PRINTER Hermelindo Butler MD LAB BLOOD ORDER ELANA Final Result Performing Organization Address [facility] [address]/[facility] de Phone Number [facility] Department [place] [employer] [place] [address] * Gamma GT (07/13/2024 7:40 AM LITHOGRAPH PRINTER) Pathologist [facility] GGT 27 10 - 50 Units/L Blood 07/13/2024 7:40 AM LITHOGRAPH PRINTER 07/13/2024 7:47 AM LITHOGRAPH PRINTER Hermelindo Butler MD LAB BLOOD ORDER ELANA Final Result Performing Organization Address City/[facility] [address]/[facility] de Phone Number [facility] [employer] [place] [address] * (ABNORMAL) IgA (07/13/2024 7:40 AM LITHOGRAPH PRINTER) Pathologist [facility] Immunoglobulin A <50(L) 70 - 400 mg/dL Blood 07/13/2024 7:40 AM LITHOGRAPH PRINTER 07/13/2024 7:59 AM LITHOGRAPH PRINTER Hermelindo Butler MD LAB BLOOD ORDER ELANA Final Result Performing Organization Address [facility] [address]/[facility] de Phone Number [facility] [place] [address] * (ABNORMAL) IgM (07/13/2024 7:40 AM LITHOGRAPH PRINTER) [facility] Immunoglobulin M <25(L) 40 - 230 mg/dL Blood 07/13/2024 7:40 AM LITHOGRAPH PRINTER 07/13/2024 7:59 AM LITHOGRAPH PRINTER Hermelindo Butler MD LAB BLOOD ORDER ELANA Final Result Performing Organization Address [facility] de Phone Number [facility] [place] [address] * (ABNORMAL) IgG (07/13/2024 7:40 AM LITHOGRAPH PRINTER) [facility] Immunoglobulin G <300(L) 700 - 1,600 mg/dL Blood 07/13/2024 7:40 AM LITHOGRAPH PRINTER 07/13/2024 7:59 AM LITHOGRAPH PRINTER Hermelindo Butler MD LAB BLOOD ORDER ELANA Final Result Performing Organization Address [facility] de Phone Number [facility] [place] [address] * (ABNORMAL) Comprehensive metabolic panel (07/13/2024 7:40 AM LITHOGRAPH PRINTER) [facility] Sodium 144 135 - 145 mmol/L Potassium, pl 4.2 3.3 - 4.9 mmol/L [facility] Chloride 107 97 - 110 mmol/L [facility] CO2 33(H) 22 - 32 mmol/L [facility] Anion gap 4 2 - 15 mmol/L [facility] BUN 29(H) 6 - 25 mg/dL [facility] Creatinine 1.34(H) 0.80 - 1.30 mg/dL [facility] Glucose 125 70 - 199 mg/dL [facility] Comment: Interpretive Data Fasting glucose >/= 126 [...] 2022. Calcium 9.4 8.5 - 10.3 mg/dL [facility] Bilirubin, total 0.7 0.1 - 1.2 mg/dL [facility] Protein, pl 6.2(L) 6.5 - 8.5 g/dL [facility] Albumin 4.1 3.5 - 5.0 g/dL [facility] Alk phos 65 40 - 130 Units/L [facility] ALT 18 7 - 55 Units/L [facility] AST 16 10 - 50 Units/L [facility] Blood 07/13/2024 7:40 AM LITHOGRAPH PRINTER 07/13/2024 7:47 AM LITHOGRAPH PRINTER Hermelindo Butler MD LAB BLOOD ORDER ELANA Final Result [facility] [place] [address] * aPTT (07/13/2024 7:24 AM LITHOGRAPH PRINTER) [facility] Signature aPTT 28 28 - 38 sec Comment: Interpretive Data Heparin therapeutic range: 66.0 - 100.0 seconds. Range based on correlation with therapeutic heparin activity range of 0.3 - 0.7 Units/mL. Current interpretive data was last revised on 2023. Blood 07/13/2024 7:24 AM LITHOGRAPH PRINTER 07/13/2024 7:59 AM LITHOGRAPH PRINTER Hermelindo Butler MD LAB BLOOD ORDER ELANA Final Result Performing Organization Address City/State/[employer] de Phone Number [facility] [place] [address] * Protime-INR (07/13/2024 7:24 AM LITHOGRAPH PRINTER) Pathologist [facility] PT 11.5 9.7 - 13.0 sec INR 1.06 0.90 - 1.20 [facility] Comment: Interpretive data Oral anticoagulant therapeutic ranges: Venous thromboembolism prophylaxis or treatment: 2.0-3.0 CARDIOLOGY Standard range: 2.0-3.0 High-intensity range: 2.5-3.5 Refer to indication-specific guidelines for appropriate target ranges for prosthetic heart valve replacement. Current interpretive data was last revised on 2019. Blood 07/13/2024 7:24 AM LITHOGRAPH PRINTER 07/13/2024 7:59 AM LITHOGRAPH PRINTER Hermelindo Butler MD LAB BLOOD ORDER ELANA Final Result Performing Organization Address [facility] [address]/[facility] de Phone Number [facility] Department [place] [employer] [place] [address] * Immunotyping, serum (06/22/2024 7:20 AM LITHOGRAPH PRINTER) Pathologist [facility] Immunosubtraction Please see comment Comment: NO PARAPROTEIN DETECTED Reviewed and signed by Fernando Nunez MD, PhD 06/23/2024 Blood 06/22/2024 7:20 AM LITHOGRAPH PRINTER 06/22/2024 10:03 AM LITHOGRAPH PRINTER Hermelindo Butler MD LAB BLOOD ORDER ELANA Final Result Performing Organization Address City/[facility] [address]/[employer] de Phone Number [facility] [place] [address] * eGFR (06/22/2024 7:20 AM LITHOGRAPH PRINTER) Pathologist [facility] eGFR 66 >=60 mL/min/1. 73 m2 Comment: [...] last reviewed 2021. Blood 06/22/2024 7:20 AM LITHOGRAPH PRINTER 06/22/2024 8:12 AM LITHOGRAPH PRINTER Hermelindo Butler MD LAB BLOOD ORDER ELANA Final Result [facility] [place] [address] * Differential, auto (06/22/2024 7:20 AM LITHOGRAPH PRINTER) [facility] Neutrophil abs 5.4 1.5 - 6.5 K/cumm Comment:Testing performed by : [facility], [address] [place] [phone] Lymphocyte abs 0.9 0.8 - 3.3 K/cumm [facility] Comment:Testing performed by : [facility], [address] [place] [phone] Monocyte abs 0.5 0.2 - 0.8 K/cumm [facility] Comment:Testing performed by : [facility], [address] [place] [phone] Eosinophil abs 0.2 0.0 - 0.5 K/cumm [facility] Comment:Testing performed by : [facility], [address] [place] [phone] Basophil abs 0.0 0.0 - 0.1 K/cumm [facility] Comment:Testing performed by : [facility], [address] [place] [phone] Neutrophil pct 75.7 % [facility] Comment: Interpretive Data Percent cell count reference ranges are not reported, since discordance with absolute values may lead to misinterpretation of CBC data. Current Interpretive Data was last revised on 2017. Testing performed by: [facility], [address] [place] [phone] Lymphocyte pct 13.1 % [facility] Comment: Interpretive Data Percent cell count reference ranges are not reported, since discordance with absolute values may lead to misinterpretation of CBC data. Current Interpretive Data was last revised on 2017. Testing performed by: [facility], [address] [place] [phone] Monocyte pct 7.1 % [facility] Comment: Interpretive Data Percent cell count reference ranges are not reported, since discordance with absolute values may lead to misinterpretation of CBC data. Current Interpretive Data was last revised on 2017. Testing performed by: [facility], [address] [place] [phone] Eosinophil pct 3.5 % [facility] Comment: Interpretive Data Percent cell count reference ranges are not reported, since discordance with absolute values may lead to misinterpretation of CBC data. Current Interpretive Data was last revised on 2017. Testing performed by: [facility], [address] [place] [phone] Basophil pct 0.6 % [facility] Comment: Interpretive Data Percent cell count reference ranges are not reported, since discordance with absolute values may lead to misinterpretation of CBC data. Current Interpretive Data was last revised on 2017. Testing performed by: [facility], [address] [place] [phone] Blood 06/22/2024 7:20 AM LITHOGRAPH PRINTER 06/22/2024 8:08 AM LITHOGRAPH PRINTER Hermelindo Butler MD LAB BLOOD ORDER ELANA Final Result [facility] [place] [address] * (ABNORMAL) Immunoglobulin free light chains (06/22/2024 7:20 AM LITHOGRAPH PRINTER) [place]/Lambda ratio [facility] See Comment 0.26 - 1.65 Comment: Unable to calculate exact result. Interpretive Data The Binding Site FreeLite assay procedure was used. Results from different manufacturers or methods may not be comparable. Serial testing should be performed using the same methods and instrumentation. Current Interpretive Data was last revised on 2023. [place] free light chain [facility] <0.06(L) 0.33 - 1.94 mg/dL [facility] Comment: Interpretive Data The Binding Site FreeLite assay procedure was used. Results from different manufacturers or methods may not be comparable. Serial testing should be performed using the same methods and instrumentation. Current Interpretive Data was last revised on 2023. Lambda free light chain [facility] <0.13(L) 0.57 - 2.63 mg/dL [facility] Comment: Interpretive Data The Binding Site FreeLite assay procedure was used. Results from different manufacturers or methods may not be comparable. Serial testing should be performed using the same methods and instrumentation. Current Interpretive Data was last revised on 2023. Blood 06/22/2024 7:20 AM LITHOGRAPH PRINTER 06/22/2024 9:53 AM LITHOGRAPH PRINTER Hermelindo Butler MD LAB BLOOD ORDER ELANA Final Result [facility] [place] [address] * (ABNORMAL) CBC with auto differential (06/22/2024 7:20 AM LITHOGRAPH PRINTER) WBC 7.1 3.8 - 9.9 K/cumm Comment:Testing performed by : [facility], [address] [place] [address] Hgb 14.6 13.0 - 17.5 g/dL [facility] Comment:Testing performed by : [facility], [address] [place] [address] Hct 45.6 38.9 - 50.3 % [facility] Comment:Testing performed by : [facility], [address] [place] [address] Plt 196 150 - 400 K/cumm [facility] Comment:Testing performed by : [facility], [address] [place] [address] MPV 8.3 6.8 - 10.4 fL [facility] Comment:Testing performed by : [facility], [address] [place] [address] RBC 4.88 4.30 - 5.80 M/cumm [facility] Comment:Testing performed by : [facility], [address] [place] [address] MCV 93.5 81.3 - 96.4 fL [facility] Comment:Testing performed by : [facility], [address] [place] [address] MCH 29.9 27.1 - 33.3 pg [facility] Comment:Testing performed by : [facility], [address] [place] [address] MCHC 31.9(L) 32.3 - 35.7 g/dL [facility] Comment:Testing performed by : [facility], [address] [place] [address] RDW CV 16.0(H) 11.1 - 14.9 % [facility] Comment:Testing performed by : [facility], [address] [place] [phone] NRBC abs 0.20(H) 0.00 - 0.01 K/cumm [facility] Comment:Testing performed by : [facility], [address] [place] [phone] Blood 06/22/2024 7:20 AM LITHOGRAPH PRINTER 06/22/2024 8:08 AM LITHOGRAPH PRINTER Hermelindo Butler MD LAB BLOOD ORDER ELANA Final Result Performing Organization Address [facility] [address]/[facility] de Phone Number [facility] [place] [address] * aPTT (06/22/2024 7:20 AM LITHOGRAPH PRINTER) aPTT 29 28 - 38 sec Comment: Interpretive Data Heparin therapeutic range: 66.0 - 100.0 seconds. Range based on correlation with therapeutic heparin activity range of 0.3 - 0.7 Units/mL. Current interpretive data was last revised on 2023. Blood 06/22/2024 7:20 AM LITHOGRAPH PRINTER 06/22/2024 9:50 AM LITHOGRAPH PRINTER Hermelindo Butler MD LAB BLOOD ORDER ELANA Final Result Performing Organization Address [facility] [address]/[facility] de Phone Number [facility] [employer] [place] [address] * Protime-INR (06/22/2024 7:20 AM LITHOGRAPH PRINTER) PT 10.9 9.7 - 13.0 sec INR 1.01 0.90 - 1.20 [facility] Comment: Interpretive data Oral anticoagulant therapeutic ranges: Venous thromboembolism prophylaxis or treatment: 2.0-3.0 CARDIOLOGY Standard range: 2.0-3.0 High-intensity range: 2.5-3.5 Refer to indication-specific guidelines for appropriate target ranges for prosthetic heart valve replacement. Current interpretive data was last revised on 2019. Blood 06/22/2024 7:20 AM LITHOGRAPH PRINTER 06/22/2024 9:50 AM LITHOGRAPH PRINTER Hermelindo Butler MD LAB BLOOD ORDER ELANA Final Result [facility] [facility] [place] [address] * (ABNORMAL) Protein electrophoresis with reflex, serum (06/22/2024 7:20 AM LITHOGRAPH PRINTER) Pathologist [facility] Protein, sr 5.9(L) 6.2 - 8.2 g/dL Albumin 3.7 3.2 - 5.0 g/dL [facility] Alpha-1 globulin 0.3 0.2 - 0.4 g/dL [facility] Alpha-2 globulin 0.7 0.5 - 1.0 g/dL [facility] Beta-1 globulin 0.5 0.3 - 0.6 g/dL [facility] Beta-2 globulin 0.3 0.2 - 0.6 g/dL [facility] Gamma globulin 0.4(L) 0.5 - 1.7 g/dL [facility] SPEP interp Please see comment [facility] Comment: No apparent monoclonal peak Decreased gamma globulins Electrophoretic pattern appears similar to previous sample 05-19-24 See immunotyping for further information Reviewed and signed by Fernando Nunez MD, PhD 06/23/2024 Immunotyping See Immunotyping Results [facility] Blood 06/22/2024 7:20 AM LITHOGRAPH PRINTER 06/22/2024 9:55 AM LITHOGRAPH PRINTER Hermelindo Butler MD LAB BLOOD ORDER ELANA Final Result [facility] [place] [address] * Magnesium (06/22/2024 7:20 AM LITHOGRAPH PRINTER) Pathologist [facility] Magnesium 2.2 1.4 - 2.5 mg/dL Blood 06/22/2024 7:20 AM LITHOGRAPH PRINTER 06/22/2024 8:12 AM LITHOGRAPH PRINTER us Hermelindo Butler MD LAB BLOOD ORDER ELANA Final Result Performing Organization Address [facility] de Phone Number [facility] [place] [address] * Lactate dehydrogenase (LD) (06/22/2024 7:20 AM LITHOGRAPH PRINTER) Lactate dehydrogenase (LDH) 157 100 - 250 Units/L Blood 06/22/2024 7:20 AM LITHOGRAPH PRINTER 06/22/2024 8:12 AM LITHOGRAPH PRINTER us Hermelindo Butler MD LAB BLOOD ORDER ELANA Final Result Performing Organization Address [facility] de Phone Number [facility] [place] [address] * Gamma GT (06/22/2024 7:20 AM LITHOGRAPH PRINTER) GGT 30 10 - 50 Units/L Blood 06/22/2024 7:20 AM LITHOGRAPH PRINTER 06/22/2024 8:12 AM LITHOGRAPH PRINTER us Hermelindo Butler MD LAB BLOOD ORDER ELANA Final Result Performing Organization Address [facility] [place] [address] * (ABNORMAL) IgA (06/22/2024 7:20 AM LITHOGRAPH PRINTER) Immunoglobulin A <50(L) 70 - 400 mg/dL Blood 06/22/2024 7:20 AM LITHOGRAPH PRINTER 06/22/2024 9:49 AM LITHOGRAPH PRINTER us Hermelindo Butler MD LAB BLOOD ORDER ELANA Final Result [facility] [place] [address] * (ABNORMAL) IgM (06/22/2024 7:20 AM LITHOGRAPH PRINTER) [facility] Immunoglobulin M <25(L) 40 - 230 mg/dL Blood 06/22/2024 7:20 AM LITHOGRAPH PRINTER 06/22/2024 9:49 AM LITHOGRAPH PRINTER Hermelindo Butler MD LAB BLOOD ORDER ELANA Final Result Performing Organization Address City/[facility] [address]/[employer] de Phone Number [facility] [place] [address] * (ABNORMAL) IgG (06/22/2024 7:20 AM LITHOGRAPH PRINTER) [facility] Immunoglobulin G 423(L) 700 - 1,600 mg/dL Blood 06/22/2024 7:20 AM LITHOGRAPH PRINTER 06/22/2024 9:49 AM LITHOGRAPH PRINTER Hermelindo Butler MD LAB BLOOD ORDER ELANA Final Result Performing Organization Address City/[facility] [address]/[facility] de Phone Number [facility] [place] [address] * (ABNORMAL) Comprehensive metabolic panel (06/22/2024 7:20 AM LITHOGRAPH PRINTER) [facility] Sodium 141 135 - 145 mmol/L Potassium, pl 4.1 3.3 - 4.9 mmol/L [facility] Chloride 104 97 - 110 mmol/L [facility] CO2 31 22 - 32 mmol/L [facility] Anion gap 6 2 - 15 mmol/L [facility] BUN 24 6 - 25 mg/dL [facility] Creatinine 1.18 0.80 - 1.30 mg/dL [facility] Glucose 111 70 - 199 mg/dL [facility] Comment: Interpretive Data Fasting glucose >/= 126 [...] 2022. Calcium 9.5 8.5 - 10.3 mg/dL [facility] Bilirubin, total 0.7 0.1 - 1.2 mg/dL [facility] Protein, pl 6.3(L) 6.5 - 8.5 g/dL [facility] Albumin 3.8 3.5 - 5.0 g/dL [facility] Alk phos 63 40 - 130 Units/L [facility] ALT 18 7 - 55 Units/L [facility] AST 20 10 - 50 Units/L [facility] Blood 06/22/2024 7:20 AM LITHOGRAPH PRINTER 06/22/2024 8:12 AM LITHOGRAPH PRINTER us Hermelindo Butler MD LAB BLOOD ORDER ELANA Final Result Performing Organization Address City/[facility] [address]/ZIP Co de Phone Number [facility] Department [place] [employer] [place] [address] * Hepatitis C antibody (10/16/2021 9:50 AM CDT) Pathologist [facility] Hep C Ab Nonreactive Nonreactive [facility] Comment:Antibodies to HCV no t detected. Does NOT exclude the possibility of recent exposure to HCV. Blood 10/16/2021 9:50 AM CDT 10/16/2021 11:22 AM CDT Hermelindo dupree MD LAB MICROBIOLOGY - GENERAL ORDERABLES Edited Result - Final [facility] Department [place] [employer] [place] [address] from Last 3 Months or Most Recently Relevant to Health Maintenance Insurance MEDICARE AET SENIOR SUPPLEMENT MEDICARE AETNA SENIOR SUPPLEMENT MEDICARE AET SENIOR SUPPLEMENT Advance Directives For more information, please contact: [phone] Documents on File Type Date Recorded Patient Psychologist Engineering Expl anation ADVANCE DIRECTIVE 11/29/2017 11:05 AM FOX R OF PROPERTY WORKER ADVANCE DIRECTIVE 11/12/2017 3:59 PM POWER OF PROPERTY WORKER * Full Code (Latest Code Status on [...] 12:02 AM 01/06/2018 2:58 PM Care Teams 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 Relationship Specialty Start Date End Date Jatin Gamble MD [address] [place] [address] PCP - General 10/07/16 Hermelindo Butler MD [address] [place] [address] Medical Onc[facility] Medical Oncology 12/02/17 Roberto Rojo MD [address] [id number] Medical Oncologist[facility] Hematology and Oncology 12/02/17 Jatin Gamble MD [address] [place] [address] Referring Physician Internal Medicine 12/02/17 Lyndsey Fagan NP [address] [id number] Nurse Practitioner Medical Oncology 08/03/20 Erlin Servin MD [address] [place] [address] Consulting Physician Otolaryngology 10/04/22 [place] [address] [place] [address] Consulting Physician Urology 05/28/23
--- OUTSIDE RECORDS SUMMARY | 2024-08-23 07:17 | XMS_ITS | Continuity of Care Document ---
Author Organization [employer] [facility] Address [address] [facility] [address] [place] [address] Phone Care Team Providers Care Knitter Operator Name Role Phone Cesar Vora MD, FACS [...] ER 100 mg tablet,extended release - Active [place] 5 mg-325 mg tablet take 1 tablet [...] Office/outpa tient Visit, [facility], [id number] [place] [address] [address], [place], [place], [address], [place] tel:[phone] SEC [place] Eyelid infections (chief complaint) Episcleritis of left eyeOther vitreous opacities, bilateralOth er visual disturbances 2 Vielka Cesar. [address] [facility], [address], [place], [place], [address], [place]. tel:[phone] Specialist: Hermelindo Lopez MD, [address] [facility] [address], [place], [address]. tel:[phone] Provider: Vicky Ray OD, [address] [facility], [place], [address]. tel:[phone] [facility], [address], [place], [place], [address], [place] tel:[phone] SEC [place] Professional yag pc OS evaluation (chief complaint) Bilateral artificial lens implantOther secondary cataract, left eyeCyst of right eyelidPVD (posterior vitreous detachment), left eyeBilateral ocular hypertension Oct-1 8 Jose R Franco. [address] [facility], [address], [place], [place], [address], [place]. tel:[phone] Referring Provider: Michele Orellana OD A, [address] [place] [address] Eye [facility], [place], [address]. tel:[phone] [facility], [address] [place], [place] [address], [place], [place], [address], [place] tel:[phone] SEC Steven Sifuentes Yag PC Eval (chief complaint) No Information 7 [place] Cesar. [address] [place], [place] [address], [address], [place], [place], [address], [place]. tel:[phone] Referring Provider: Michele Orellana OD A, [address] [place] [address], [place], [address]. tel:[phone] [facility], [address], [place], [place], [address], [place] tel:[phone] SEC [place] Petrona Coybienvenidorosalio No Information 7 Vielka Cesar. [facility] [employer], [address], [place], [place], [address], [place]. tel:[phone] [facility] [facility] Center[facility], [facility] [address] [address], [place], [place], [address], [place] tel:[phone] [facility] No Information 5 Vielka Cesar. [facility] [employer], [address], [place], [place], [address], [place]. tel:[phone] Referring Provider: Michele Orellana OD A, [address] [place] [address], [place], [address]. tel:[phone] [facility], [address] [place] [address] [address], [place], [place], [address], [place] tel:[phone] SEC Steven [address] No Information 5 Vielka Guerrero. [address] [facility], [address], [place], [place], [address], [place]. tel:[phone] Referring Provider: Michele Acevedo, [address] [facility] Eye [facility], [place], [address]. tel:[phone] [facility], [address] [place] [address] [address], [place], [place], [address], [place] tel:[phone] [facility] No Information 5 Vielka Guerrero. [facility] [address] [facility], [address], [place], [place], [address], [place]. tel:[phone] Referring Provider: Michele Acevedo, [address] [facility], [place], [address]. tel:[phone] [facility], [address] [place] [address] [address], [place], [place], [address], [place] tel:[phone] SEC [address] Cataract Evaluation (chief complaint) No Information 5 Vielka Guerrero. [address] [place] [address] [address] [facility], [address], [place], [place], [address], [place]. tel:[phone] Referring Provider: Michele Acevedo, [address] [place], [address]. tel:[phone] Family History Family Member Type Diagnosis Age At Onset Mother Problem (finding) diabetes melli tus in first degree relative Mother Problem (finding) glaucoma Payers Payer name Insurance type Covered libertarian ID Authoriza tion(s) [place] [id number] Aetna Mdcr Supp CI [id number] Social History Type Description Quantity Date Captured [...] No Information Instructions Date Instruction Additional Infor lliy Impression/Plan Impression/Plan Follow up - Follow u [...]
--- OUTSIDE RECORDS SUMMARY | 2024-08-23 07:17 | XMS_ITS | Encounter Summary ---
Author Organization [facility] Healthcare Address [address] [place] [address] Care Team Providers Care Contact Worker Name Role Phone Jatin Gamble MD Primary Care Provider [phone] Hermelindo Butler MD Unavailable Roberto Rojo MD Unavailable [phone] Jatin Gamble MD Unavailable Garry Dukes MD Unavailable [phone] Lyndsey Fagan NP Unavailable Eriln Servin MD Unavailable [phone] Julian Valdez MD Unavailable Encounter Details Date Type Department Care Team (Late st Contact Info) Description 04/29/2022 Community Orders [facility] EpicCare Link Jatin Gamble MD [address] [place] [address] Elevated prostate specific antigen (PSA) (Primary Dx) Social History Tobacco Use Types Packs/Day Years Used Date Smoking Tobacco: Never Smokeless Tobacco: Never Alcohol Use Standard Drinks/Week Comments No 0 (1 standard drink = 0.6 oz pur e alcohol) Sex and Gender Information Value Date Recorded Sex Assigned at Not on file 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 Gender Identity Not on file Sexual Orientation [...] documented as of this encounter Care Teams Contact Worker Relationship Specialty Start Date End Date Jatin Gamble MD [address] [place] [address] PCP - General 10/07/16 Hermelindo Butler MD [address] [place] [address] [facility] Medical Oncology 12/02/17 Roberto Rojo MD [address] [place] [address] [facility] Hematology and Oncology 12/02/17 Jatin Gamble MD [address] [place] [address] Referring Physician Internal Medicine 12/02/17 Grary Dukes MD [address] [place] [address] Referring Physician Urology 12/02/17 05/27/23 Lyndsey Fagan NP [address] [place] [address] Nurse Practitioner Medical Oncology 08/03/20 Erlin Servin MD [address] [place] [address] Consulting Physician Otolaryngology 10/04/22 [place] [address] [place] [address] Consulting Physician Urology 05/28/23 documented as of this encounter
--- OUTSIDE RECORDS SUMMARY | 2024-08-23 07:17 | XMS_ITS | Clinical Summary ---
Author Organization [facility] Address [address] [place] [address] Care Team Providers Care Credit Review Manager Name Role Phone Jatin Gamble MD Primary Care Provider [phone] Hermelindo Butler MD Unavailable Roberto Rojo MD Unavailable [phone] Jatin Gamble MD Unavailable [phone] Lyndsey Fagan NP Unavailable [phone] Erlin Servin MD Unavailable Julian Valdez MD Unavailable [phone] Allergies Active Allergy Reactions Criticality Noted Date [...] MM Floor 9800 Treatment Plan Clinical Trial [id number] Tenebio Reason for Admission Study chemo C1D1 Transplant/IEC Planning BMT/IEC Plan HLA typing/IDMs Insurance Approvals/Issues Discharge Planning Anticipated Discharge Date 11/01 Patient Education Completed Issue to be Resolved Before Discharge Discharge Disposition Home Requests Sent to Case Management and/or Medical Assistants Post-Discharge Follow-Up Living Situation/Distance from [place], [place] (45 min) Caregiver Self, Lab/Transfusion Frequency [...] is a risk of orbital injury and PHYSICIAN UNDERWRITER injury which could result in blindness or [...] this. Assessment & Plan (07/09/2022 7:42 PM CHEMICAL PREPARER): I talked with him quite a bit [...] weeks. Assessment & Plan (05/26/2022 4:16 PM CHEMICAL PREPARER): He does have pretty significant sinusitis and [...] day. Assessment & Plan (05/26/2022 4:17 PM CHEMICAL PREPARER): It is very possible that his cough could be due to sinusitis also. Hopefully that will continue to improve as we treat. He understands. Immunocompromised 11/13/2021 Multiple myeloma not having achieved remission 0 10/28/2021 Cancer Staging:Clinical stage from 10/16/2021:RISS Stage II(Kwat-5-cykfbluhipkzc (mg/L): 3.7, Albumin (g/dL): 4.2, ISS: Stage [...] he got a TTE on 10/19 at [facility] however unclear why not currently in the system - May need to repeat TTE prior to treatment if results unavailable - Continue OI ppx with acyclovir 400mg BID - Begin trial [id number], a Bispecific Antibody Targeting BCMA treatment - [...] he got a TTE on 10/19 at [facility] however unclear why not currently in the system - May need to repeat TTE prior to treatment if results unavailable - Continue OI ppx with acyclovir 400mg BID - Begin trial [id number], a Bispecific Antibody Targeting BCMA treatment - [...] BID Assessment & Plan (05/31/2021 10:51 AM CHEMICAL PREPARER): Continue home pepcid, asx Renal mass 05/30/2021 Assessment & Plan (05/31/2021 10:51 AM CHEMICAL PREPARER): Admitted for observation after L renal mass [...] 07/17/2023 Assessment & Plan (05/31/2021 10:52 AM CHEMICAL PREPARER): Follows with oncology on daratumumab monotherapy -counts [...] blood in urine Follow up pathology from qqfuidaxz-vcs-cdfbpyjl high-grade papillary urothelial carcinoma (grade 2) --follow [...] blood in urine Follow up pathology from toazpeorz-tyb-vcabmetj high-grade papillary urothelial carcinoma (grade 2) --follow [...] supplementation Assessment & Plan (05/31/2021 10:51 AM CHEMICAL PREPARER): Stable on home losartan, nebivolol, triamterene-HCTZ Secondary [...] IM ONCOLOGY Scanning, Provider 08/06/2024 1:45 PM CHEMICAL PREPARER Clinical Support [facility] - Lab [facility] [address] [place] [address] 08/06/2024 1:00 PM CHEMICAL PREPARER - 08/06/2024 11:59 PM CHEMICAL PREPARER Hospital Encounter [facility] Radiology 1 [place] [address] Multiple myeloma, remission status unspecified (HCC) Discharge Disposition: Discharge to home or self care 08/06/2024 8:00 AM CHEMICAL PREPARER Infusion [facility] - Infusion [address] [facility] Floor 6 [place] [address] Multiple myeloma not having achieved remission (HCC) (Primary Dx); Hypogammaglobulinem ia 08/06/2024 7:15 AM CHEMICAL PREPARER Clinical Support [facility] - Lab Collection [address] [facility] Floor [address] [place] [address] Multiple myeloma in relapse (HCC) (Primary Dx); Multiple myeloma, remission status unspecified (HCC); JOHN (acute kidney injury) 08/06/2024 Telephone [facility] Floor [address] [place] [address] Lyndsey Fagan NP 08/06/2024 Orders Only [facility] Transplant [address] [place] [phone] Lyndsey Fagan NP Multiple myeloma, remission status unspecified (HCC) (Primary Dx) 08/06/2024 Orders Only [facility] Transplant [address] [place] [phone] Lyndsey Fagan NP JOHN (acute kidney injury) (Primary Dx) 08/06/2024 Orders Only [facility] Transplant [address] [place] [phone] Hermelindo Hill MD Multiple myeloma, remission status unspecified (HCC) (Primary Dx) 08/03/2024 9:30 AM CHEMICAL PREPARER Infusion [facility] - Infusion [address] [place] [phone] Multiple myeloma in relapse (HCC) (Primary Dx); Multiple myeloma in remission (HCC) 08/03/2024 8:30 AM CHEMICAL PREPARER Office Visit [facility]row Transplant [address] [place] [phone] Hermelindo Hill MD Multiple myeloma, remission status unspecified (HCC) (Primary Dx); Multiple myeloma in remission (HCC); Multiple myeloma in relapse (HCC) 08/03/2024 7:30 AM CHEMICAL PREPARER Clinical Support [facility] - Lab Collection [address] [place] [address] Multiple myeloma in remission (HCC); Multiple myeloma, remission status unspecified (HCC); Multiple myeloma in relapse (HCC) 08/03/2024 Orders Only [facility]row Transplant [address] [place] [phone] Hermelindo Hill MD 08/03/2024 Orders Only [facility] Transplant [address] [place] [phone] Hermelindo Hill MD 08/03/2024 Orders Only [facility] Transplant [address] [place] [phone] Hermelindo Hill MD 08/02/2024 Telephone [facility] Transplant [address] [place] [phone] Lyndsey Fagan NP 07/30/2024 Telephone [facility] Transplant [address] [place] [phone] Hermelindo Hill MD 07/27/2024 Telephone [facility] Transplant [address] [place] [phone] Hermelindo Hill MD 07/26/2024 Orders Only [facility] Transplant [address] [place] [phone] Hermelindo Hill MD 07/26/2024 Orders Only [facility] Transplant [address] [place] [phone] Hermelindo Hill MD 07/26/2024 Telephone [facility] Transplant [address] [place] [phone] Margaret Kay RMA Medical Question/Miscellane ous 07/13/2024 10:00 AM CHEMICAL PREPARER Infusion [facility] - Infusion [address] [place] [address] 6 [place] [address] Multiple myeloma in relapse (HCC) (Primary Dx); Multiple myeloma in remission (HCC) 07/13/2024 9:00 AM CHEMICAL PREPARER Office Visit [facility] Transplant [address] [place] [phone] Hermelindo Hill MD Multiple myeloma, remission status unspecified (HCC) (Primary Dx); Multiple myeloma in remission (HCC); Hypogammaglobulinem ia 07/13/2024 8:00 AM CHEMICAL PREPARER Clinical Support [facility] - [facility] [address] [address] Multiple myeloma in remission (HCC); Multiple myeloma in relapse (HCC); Multiple myeloma, remission status unspecified (HCC) 07/13/2024 Telephone [facility] Transplant [address] [place] [phone] Fadumo Tobar RN 06/22/2024 8:30 AM CHEMICAL PREPARER Infusion [facility] - Infusion [address] [place] [phone] Multiple myeloma, remission status unspecified (HCC) (Primary Dx); Multiple myeloma in remission (HCC); Multiple myeloma in relapse (HCC) 06/22/2024 8:00 AM CHEMICAL PREPARER Office Visit [facility] Transplant [address] [place] [phone] Hermelindo Hill MD Multiple myeloma in relapse (HCC) (Primary Dx); Multiple myeloma, remission status unspecified (HCC); Hypogammaglobulinem ia; Obesity, morbid (HCC) 06/22/2024 7:00 AM CHEMICAL PREPARER Clinical Support [facility] - Lab Collection [address] [place] [address] Multiple myeloma, remission status unspecified (HCC); Multiple myeloma in relapse (HCC) 06/22/2024 Orders Only [facility] Transplant [address] [place] [phone] Hermelindo Hill MD 06/22/2024 Orders Only [facility] Transplant [address] [place] [phone] Hermelindo Hill MD Multiple myeloma in remission (HCC) (Primary Dx); Multiple myeloma in relapse (HCC) 06/14/2024 Telephone [facility] Transplant [address] [place] [address] [phone] Margaret Kay RMA Reschedule from Last 3 [...] chemotherapy has chemo every 21 days at [facility] last tx 09/24/22 Cough patient states D [...] on file Legal Sex 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 CHEMICAL PREPARER Gender Identity Not on file Sexual Orientation Not on file Obstetrics History Last Filed Vital Signs Vital Sign Reading Time Taken Comments Blood Pressure 157/83 08/06/2024 8:02 AM CHEMICAL PREPARER Pulse 63 08/06/2024 8:02 AM CHEMICAL PREPARER Temperature 37 C (98.6 F) 08/06/2024 8:02 AM CHEMICAL PREPARER Respiratory Rate 18 08/06/2024 8:02 AM CHEMICAL PREPARER Oxygen Saturation 99% 08/06/2024 8:02 AM CHEMICAL PREPARER Inhaled Oxygen Concentration - - Weight 127.4 kg (280 lb 13.9 oz) 08/06/2024 8:02 AM CHEMICAL PREPARER Height 175.3 cm (5' 9 ) 05/18/2024 8:28 AM CHEMICAL PREPARER Body Mass Index 41.48 05/18/2024 8:28 AM CHEMICAL PREPARER Plan of Treatment Health Maintenance Due Date [...] history exists Medical Devices Implanted Type Area Head Stock Operator Device Identifier Shelf Expiration Date Model / Serial / Lot Other - See Comments Other - see comments Right: Chest Wall Description:Upon arrival to IR, not accessed Procedures Procedure Name Priority Date/Time Associated Diagnosis Comments SCAN - LABS 08/10/2024 KIDNEY COMPLETE Schedule Routine, Read Routine (OP Routine) 08/06/2024 2:42 PM CHEMICAL PREPARER Multiple myeloma, remission status unspecified (HCC) URINALYSIS, MICROSCOPIC ONLY Routine 08/06/2024 9:19 AM CHEMICAL PREPARER JOHN (acute kidney injury) PROTEIN / CREATININE RATIO, URINE, RANDOM Routine 08/06/2024 9:19 AM CHEMICAL PREPARER JOHN (acute kidney injury) URINALYSIS AND REFLEX TO MICROSCOPIC Routine 08/06/2024 9:19 AM CHEMICAL PREPARER JOHN (acute kidney injury) EGFR Routine 08/06/2024 7:43 AM CHEMICAL PREPARER Multiple myeloma, remission status unspecified (HCC) DIFFERENTIAL AUTO Routine 08/06/2024 7:4 3 AM CHEMICAL PREPARER Multiple myeloma, remission status unspecified (HCC) LACTATE DEHYDROGENASE Routine 08/06/2024 7:43 AM CHEMICAL PREPARER Multiple myeloma, remission status unspecified (HCC) CBC WITH AUTO DIFFERENTIAL Routine 08/06/2024 7:43 AM CHEMICAL PREPARER Multiple myeloma, remission status unspecified (HCC) COMPREHENSIVE METABOLIC PANEL Routine 08/06/2024 7:43 AM CHEMICAL PREPARER Multiple myeloma, remission status unspecified (HCC) LIPID PANEL Routine 08/06/2024 7:43 AM CHEMICAL PREPARER Multiple myeloma, remission status unspecified (HCC) PSA DIAGNOSTIC Routine 08/06/2024 7:43 AM CHEMICAL PREPARER Multiple myeloma, remission status unspecified (HCC) PROTIME-INR STAT 08/03/2024 9:21 AM CHEMICAL PREPARER Multiple myeloma in relapse (HCC) APTT STAT 08/03/2024 9:21 AM CHEMICAL PREPARER Multiple myeloma in relapse (HCC) MAGNESIUM STAT 08/03/2024 7:40 AM CHEMICAL PREPARER Multiple myeloma in relapse (HCC) GAMMA GT STAT 08/03/2024 7:40 AM CHEMICAL PREPARER Multiple myeloma in relapse (HCC) EGFR Routine 08/03/2024 7:40 AM CHEMICAL PREPARER Multiple myeloma, remission status unspecified (HCC) DIFFERENTIAL AUTO Routine 08/03/2024 7:4 0 AM CHEMICAL PREPARER Multiple myeloma, remission status unspecified (HCC) CBC WITH AUTO DIFFERENTIAL Routine 08/03/2024 7:40 AM CHEMICAL PREPARER Multiple myeloma, remission status unspecified (HCC) COMPREHENSIVE METABOLIC PANEL Routine 08/03/2024 7:40 AM CHEMICAL PREPARER Multiple myeloma, remission status unspecified (HCC) IGA Routine 08/03/2024 7:40 AM CHEMICAL PREPARER Multiple myeloma, remission status unspecified (HCC) IGG Routine 08/03/2024 7:40 AM CHEMICAL PREPARER Multiple myeloma, remission status unspecified (HCC) IGM Routine 08/03/2024 7:40 AM CHEMICAL PREPARER Multiple myeloma, remission status unspecified (HCC) IMMUNOGLOBULIN FREE LIGHT CHAINS Routine 08/03/2024 7:40 AM CHEMICAL PREPARER Multiple myeloma, remission status unspecified (HCC) LACTATE DEHYDROGENASE Routine 08/03/2024 7:40 AM CHEMICAL PREPARER Multiple myeloma, remission status unspecified (HCC) PROTEIN ELECTROPHORESIS, WITH REFLEX, SERUM Routine 08/03/2024 7:40 AM CHEMICAL PREPARER Multiple myeloma, remission status unspecified (HCC) IMMUNOTYPING Routine 08/03/2024 7:40 AM CHEMICAL PREPARER Multiple myeloma, remission status unspecified (HCC) HEMOGLOBIN A1C Routine 08/03/2024 7:40 AM CHEMICAL PREPARER Multiple myeloma, remission status unspecified (HCC) URINALYSIS, MICROSCOPIC ONLY Routine 08/03/2024 7:30 AM CHEMICAL PREPARER Multiple myeloma, remission status unspecified (HCC) URINE CULTURE Routine 08/03/2024 7:30 AM CHEMICAL PREPARER URINALYSIS AND REFLEX TO MICROSCOPIC AND CULTURE Routine 08/03/2024 7:30 AM CHEMICAL PREPARER Multiple myeloma, remission status unspecified (HCC) EGFR STAT 07/13/2024 7:40 AM CHEMICAL PREPARER Multiple myeloma in relapse (HCC) DIFFERENTIAL AUTO STAT 07/13/2024 7:4 0 AM CHEMICAL PREPARER Multiple myeloma in relapse (HCC) IGA Routine 07/13/2024 7:40 AM CHEMICAL PREPARER Multiple myeloma, remission status unspecified (HCC) IGG Routine 07/13/2024 7:40 AM CHEMICAL PREPARER Multiple myeloma, remission status unspecified (HCC) IGM Routine 07/13/2024 7:40 AM CHEMICAL PREPARER Multiple myeloma, remission status unspecified (HCC) IMMUNOGLOBULIN FREE LIGHT CHAINS Routine 07/13/2024 7:40 AM CHEMICAL PREPARER Multiple myeloma, remission status unspecified (HCC) PROTEIN ELECTROPHORESIS, WITH REFLEX, SERUM Routine 07/13/2024 7:40 AM CHEMICAL PREPARER Multiple myeloma, remission status unspecified (HCC) IMMUNOTYPING Routine 07/13/2024 7:40 AM CHEMICAL PREPARER Multiple myeloma, remission status unspecified (HCC) LACTATE DEHYDROGENASE Routine 07/13/2024 7:40 AM CHEMICAL PREPARER Multiple myeloma in relapse (HCC) GAMMA GT STAT 07/13/2024 7:40 AM CHEMICAL PREPARER Multiple myeloma in relapse (HCC) MAGNESIUM STAT 07/13/2024 7:40 AM CHEMICAL PREPARER Multiple myeloma in relapse (HCC) COMPREHENSIVE METABOLIC PANEL STAT 07/13/2024 7:40 AM CHEMICAL PREPARER Multiple myeloma in relapse (HCC) CBC WITH AUTO DIFFERENTIAL STAT 07/13/2024 7:40 AM CHEMICAL PREPARER Multiple myeloma in relapse (HCC) APTT STAT 07/13/2024 7:24 AM CHEMICAL PREPARER Multiple myeloma in relapse (HCC) PROTIME-INR STAT 07/13/2024 7:24 AM CHEMICAL PREPARER Multiple myeloma in relapse (HCC) IMMUNOTYPING Routine 06/22/2024 7:20 AM CHEMICAL PREPARER Multiple myeloma, remission status unspecified (HCC) EGFR Routine 06/22/2024 7:20 AM CHEMICAL PREPARER Multiple myeloma, remission status unspecified (HCC) DIFFERENTIAL AUTO Routine 06/22/2024 7:2 0 AM CHEMICAL PREPARER Multiple myeloma, remission status unspecified (HCC) CBC WITH AUTO DIFFERENTIAL Routine 06/22/2024 7:20 AM CHEMICAL PREPARER Multiple myeloma, remission status unspecified (HCC) COMPREHENSIVE METABOLIC PANEL Routine 06/22/2024 7:20 AM CHEMICAL PREPARER Multiple myeloma, remission status unspecified (HCC) IGA Routine 06/22/2024 7:20 AM CHEMICAL PREPARER Multiple myeloma, remission status unspecified (HCC) IGG Routine 06/22/2024 7:20 AM CHEMICAL PREPARER Multiple myeloma, remission status unspecified (HCC) IGM Routine 06/22/2024 7:20 AM CHEMICAL PREPARER Multiple myeloma, remission status unspecified (HCC) IMMUNOGLOBULIN FREE LIGHT CHAINS Routine 06/22/2024 7:20 AM CHEMICAL PREPARER Multiple myeloma, remission status unspecified (HCC) LACTATE DEHYDROGENASE Routine 06/22/2024 7:20 AM CHEMICAL PREPARER Multiple myeloma, remission status unspecified (HCC) PROTEIN ELECTROPHORESIS, WITH REFLEX, SERUM Routine 06/22/2024 7:20 AM CHEMICAL PREPARER Multiple myeloma, remission status unspecified (HCC) MAGNESIUM STAT 06/22/2024 7:20 AM CHEMICAL PREPARER Multiple myeloma in relapse (HCC) GAMMA GT STAT 06/22/2024 7:20 AM CHEMICAL PREPARER Multiple myeloma in relapse (HCC) PROTIME-INR STAT 06/22/2024 7:20 AM CHEMICAL PREPARER Multiple myeloma in relapse (HCC) APTT STAT 06/22/2024 7:20 AM CHEMICAL PREPARER Multiple myeloma in relapse (HCC) HEPATITIS C ANTIBODY STAT 10/16/2021 9:50 AM CDT Multiple myeloma in relapse (HCC) from Last 3 Months or Most Recently Relevant to Health Maintenance Results * SCAN - LABS (08/10/2024) us Provider Scanning Final Result * US Kidney Complete (08/06/2024 2:42 PM CHEMICAL PREPARER) Anatomical Region Laterality Modality Kidney N/A Ultrasound 08/06/2024 3:27 PM CHEMICAL PREPARER Impressions 08/06/2024 3:27 PM CHEMICAL PREPARER 1. Mild nephromegaly with mild to moderate hydronephrosis bilaterally. 2. Incomplete bladder emptying with post void bladder residual of 397 mL. Electronically signed by: Dylan Tinajero M.D. Narrative 08/06/2024 3:27 PM CHEMICAL PREPARER EXAMINATION: COMPLETE RENAL SONOGRAM HISTORY: Rising creatinine. [...] by: Dylan Tinajero M.D. Hermelindo Butler MD [facility] US PROCEDUR ES Final Result * (ABNORMAL) Urinalysis reflex to microscopic (08/06/2024 9:19 AM CHEMICAL PREPARER) Color, ur Straw Yellow Clarity, ur Clear [...] tendency for uric acid stone formation. Source: [employer] Current Interpretive Data was last revised on 2017 Protein, ur ql Negative Negative [facility] Glucose, ur ql Negative Negative [facility] Ketones, ur Negative Negative [facility] Bilirubin, ur Negative Negative [facility] Blood, ur 3+(A) Negative [facility] Urobilinogen, ur <2.0 <2.0 mg/dL [facility] Nitrite, ur Negative Negative [facility] Leukocyte esterase, ur Trace(A) [facility] UA reflex comment Reflex to microscopic UA will be performed. [facility] Urine 08/06/2024 9:19 AM CHEMICAL PREPARER 08/06/2024 9:19 AM CHEMICAL PREPARER Lyndsey Fagan LEGAL SUPPORT ASSISTANT LAB URINE ORDERABLES [place] l Result Performing Organization Address [facility] Co de Phone Number [facility] [place] [address] * Protein / creatinine ratio, urine, random (08/06/2024 9:19 AM CHEMICAL PREPARER) Protein, ur, quant 7.9 mg/dL Comment: Interpretive Data No reference range established. Current interpretive data was last revised 2018. Creatinine Ur 77.4 mg/dL [facility] Comment: Interpretive Data No reference range established. Current interpretive data was last revised 2018. Protein/creatinin e ratio 102.1 0.0 - 180.0 mg/g CR [facility] Urine 08/06/2024 9:19 AM CHEMICAL PREPARER 08/06/2024 9:41 AM CHEMICAL PREPARER Lyndsey Fagan LEGAL SUPPORT ASSISTANT LAB URINE ORDERABLES [place] l Result Performing Organization Address [facility] Co de Phone Number [facility] [place] [address] * (ABNORMAL) Urinalysis, microscopic only (08/06/2024 9:19 AM CHEMICAL PREPARER) WBC, ur 6-10(A) 0 - 5 /HPF RBC, ur 21-50(A) 0 - 2 /HPF [facility] Bacteria, ur Trace(A) [facility] Mucous, ur Present(A) [facility] Urine 08/06/2024 9:19 AM CHEMICAL PREPARER 08/06/2024 9:19 AM CHEMICAL PREPARER us Lyndsey Fagan NP LAB URINE ORDERABLES [place] l Result Performing Organization Address [facility] Co de Phone Number [facility] Department [place] [address] * (ABNORMAL) eGFR (08/06/2024 7:43 AM CHEMICAL PREPARER) eGFR 31(L) >=60 mL/min/1. 73 m2 Comment: [...] last reviewed 2021. Blood 08/06/2024 7:43 AM CHEMICAL PREPARER 08/06/2024 7:52 AM CHEMICAL PREPARER us Hermelindo Butler MD LAB BLOOD ORDER ELANA Final Result Performing Organization Address [facility] Co de Phone Number [facility] [place] [address] * (ABNORMAL) Differential, auto (08/06/2024 7:43 AM CHEMICAL PREPARER) Neutrophil abs 5.4 1.5 - 6.5 K/cumm Comment:Testing performed by : [facility], [address] [place] [phone] Lymphocyte abs 0.8 0.8 - 3.3 K/cumm [facility] Comment:Testing performed by : [facility], [address] [place] [phone] Monocyte abs 0.5 0.2 - 0.8 K/cumm [facility] Comment:Testing performed by : [facility], [address] [place] [address] Eosinophil abs 0.7(H) 0.0 - 0.5 K/cumm [facility] Comment:Testing performed by : [facility], [address] [place], [place] [phone] Basophil abs 0.0 0.0 - 0.1 K/cumm [facility] Comment:Testing performed by : [facility], [address] [place] [address] Neutrophil pct 72.4 % [facility] Comment: Interpretive Data Percent cell count reference ranges are not reported, since discordance with absolute values may lead to misinterpretation of CBC data. Current Interpretive Data was last revised on 2017. Testing performed by: [facility], [address] [place] [phone] Lymphocyte pct 10.4 % [facility] Comment: Interpretive Data Percent cell count reference ranges are not reported, since discordance with absolute values may lead to misinterpretation of CBC data. Current Interpretive Data was last revised on 2017. Testing performed by: [facility], [address] [place] [phone] Monocyte pct 7.3 % [facility] Comment: Interpretive Data Percent cell count reference ranges are not reported, since discordance with absolute values may lead to misinterpretation of CBC data. Current Interpretive Data was last revised on 2017. Testing performed by: [facility], [address] [place] [phone] Eosinophil pct 9.4 % [facility] Comment: Interpretive Data Percent cell count reference ranges are not reported, since discordance with absolute values may lead to misinterpretation of CBC data. Current Interpretive Data was last revised on 2017. Testing performed by: [facility], [address] [place] [phone] Basophil pct 0.5 % MT SUAREZ Comment: Interpretive Data Percent cell count reference ranges are not reported, since discordance with absolute values may lead to misinterpretation of CBC data. Current Interpretive Data was last revised on 2017. Testing performed by: [facility], [address] [place] [phone] Blood 08/06/2024 7:4 3 AM CHEMICAL PREPARER 08/06/2024 7:51 AM CHEMICAL PREPARER Hermelindo Butler MD LAB BLOOD ORDER ELANA Final Result MT SUAREZ [facility] [place] [address] * (ABNORMAL) CBC with auto differential (08/06/2024 7:43 AM CHEMICAL PREPARER) WBC 7.5 3.8 - 9.9 K/cumm Comment:Testing performed by : [facility], [address] [place] [address] Hgb 13.7 13.0 - 17.5 g/dL MT SUAREZ Comment:Testing performed by : [facility], [address] [place] [address] Hct 40.6 38.9 - 50.3 % MT SUAREZ Comment:Testing performed by : [facility], [address] [place] [address] Plt 169 150 - 400 K/cumm MT SUAREZ Comment:Testing performed by : [facility], [address] [place] [address] MPV 7.5 6.8 - 10.4 fL MT SUAREZ Comment:Testing performed by : [facility], [address] [place] [address] RBC 4.37 4.30 - 5.80 M/cumm [facility] Comment:Testing performed by : [facility], [address] [place] [address] MCV 92.7 81.3 - 96.4 fL [facility] Comment:Testing performed by : [facility], [address] [place] [address] MCH 31.3 27.1 - 33.3 pg [facility] Comment:Testing performed by : [facility], [address] [place] [address] MCHC 33.8 32.3 - 35.7 g/dL MT SUAREZ Comment:Testing performed by : [facility], [address] [place] [address] RDW CV 16.5(H) 11.1 - 14.9 % [facility] Comment:Testing performed by : [facility], [address] [place] [address] NRBC abs 0.00 0.00 - 0.01 K/cumm [facility] Comment:Testing performed by : [facility], [address] [place] [address] Blood 08/06/2024 7:43 AM CHEMICAL PREPARER 08/06/2024 7:51 AM CHEMICAL PREPARER Hermelindo Butler MD LAB BLOOD ORDER ELANA Final Result [facility] [place] [address] * (ABNORMAL) PSA diagnostic (08/06/2024 7:43 AM CHEMICAL PREPARER) PSA-Total 6.28(H) <=6.20 ng/mL Comment: Interpretive Data [...] last revised 21. Blood 08/06/2024 7:43 AM CHEMICAL PREPARER 08/06/2024 7:52 AM CHEMICAL PREPARER Hermelindo Butler MD LAB BLOOD ORDER ELANA Final Result Performing Organization Address City/[facility] Co de Phone Number [facility] [place] [address] * Lactate dehydrogenase (LD) (08/06/2024 7:43 AM CHEMICAL PREPARER) Lactate dehydrogenase (LDH) 161 100 - 250 Units/L Blood 08/06/2024 7:43 AM CHEMICAL PREPARER 08/06/2024 7:52 AM CHEMICAL PREPARER Hermelindo Butler MD LAB BLOOD ORDER ELANA Final Result Performing Organization Address City/[facility] de Phone Number [facility] [place] [address] * (ABNORMAL) Lipid panel (08/06/2024 7:43 AM CHEMICAL PREPARER) Cholesterol 128 30 - 199 mg/dL Comment: [...] revised on 2018. Triglycerides 149 <=149 mg/dL [facility] Comment: Interpretive Data Ages < or = [...] on 2018. HDL 38(L) >=40 mg/dL [place] [facility] Comment: Interpretive Data Ages < or = [...] 2018. LDL, calculated 64 <=129 mg/dL [facility] Comment: Interpretive Data Ages < or = [...] revised on 2024. Non-HDL Cholesterol 90 mg/dL [facility] Comment: Interpretive Data Ages < or = [...] last revised on 2018. Chol/HDL ratio 3 [facility] Blood 08/06/2024 7:43 AM CHEMICAL PREPARER 08/06/2024 7:52 AM CHEMICAL PREPARER us Hermelindo Butler MD LAB BLOOD ORDER ELANA Final Result [facility] [place] [address] * (ABNORMAL) Comprehensive metabolic panel (08/06/2024 7:43 AM CHEMICAL PREPARER) Sodium 145 135 - 145 mmol/L Potassium, pl 4.2 3.3 - 4.9 mmol/L [facility] Chloride 108 97 - 110 mmol/L [facility] CO2 30 22 - 32 mmol/L [facility] Anion gap 7 2 - 15 mmol/L [facility] BUN 51(H) 6 - 25 mg/dL [facility] Creatinine 2.21(H) 0.80 - 1.30 mg/dL [facility] Glucose 113 70 - 199 mg/dL [facility] Comment: Interpretive Data Fasting glucose >/= 126 [...] 2022. Calcium 9.2 8.5 - 10.3 mg/dL [facility] Bilirubin, total 0.5 0.1 - 1.2 mg/dL [facility] Protein, pl 6.2(L) 6.5 - 8.5 g/dL [facility] Albumin 4.1 3.5 - 5.0 g/dL [facility] Alk phos 61 40 - 130 Units/L [facility] ALT 15 7 - 55 Units/L [facility] AST 16 10 - 50 Units/L [facility] Blood 08/06/2024 7:43 AM CHEMICAL PREPARER 08/06/2024 7:52 AM CHEMICAL PREPARER Hermelindo Butler MD LAB BLOOD ORDER ELANA Final Result Performing Organization Address [facility] Co de Phone Number [facility] [place] [address] * aPTT (08/03/2024 9:21 AM CHEMICAL PREPARER) aPTT 31 28 - 38 sec Comment: Interpretive Data Heparin therapeutic range: 66.0 - 100.0 seconds. Range based on correlation with therapeutic heparin activity range of 0.3 - 0.7 Units/mL. Current interpretive data was last revised on 2023. Blood 08/03/2024 9:21 AM CHEMICAL PREPARER 08/03/2024 9:47 AM CHEMICAL PREPARER Hermelindo Butler MD LAB BLOOD ORDER ELANA Final Result Performing Organization Address City/[facility]/ZIP Co de Phone Number [facility] [place] [address] * Protime-INR (08/03/2024 9:21 AM CHEMICAL PREPARER) PT 11.5 9.7 - 13.0 sec INR 1.06 0.90 - 1.20 [facility] Comment: Interpretive data Oral anticoagulant therapeutic ranges: Venous thromboembolism prophylaxis or treatment: 2.0-3.0 CARDIOLOGY Standard range: 2.0-3.0 High-intensity range: 2.5-3.5 Refer to indication-specific guidelines for appropriate target ranges for prosthetic heart valve replacement. Current interpretive data was last revised on 2019. Blood 08/03/2024 9:21 AM CHEMICAL PREPARER 08/03/2024 9:47 AM CHEMICAL PREPARER Hermelindo Butler MD LAB BLOOD ORDER ELANA Final Result Performing Organization Address [facility] Co de Phone Number [facility] [place] [address] * Immunotyping, serum with interpretation (08/03/2024 7:40 AM CHEMICAL PREPARER) Immunosubtraction Please see comment Comment: NO PARAPROTEIN DETECTED Reviewed and signed by Hermelindo Mcnulty MD 08/04/2024 Blood 08/03/2024 7:40 AM CHEMICAL PREPARER 08/03/2024 8:24 AM CHEMICAL PREPARER Hermelindo Butler MD LAB BLOOD ORDER ELANA Final Result Performing Organization Address [facility] Co de Phone Number [facility] [place] [address] * (ABNORMAL) eGFR (08/03/2024 7:40 AM CHEMICAL PREPARER) eGFR 37(L) >=60 mL/min/1. 73 m2 Comment: [...] last reviewed 2021. Blood 08/03/2024 7:40 AM CHEMICAL PREPARER 08/03/2024 7:49 AM CHEMICAL PREPARER us Hermelindo Butler MD LAB BLOOD ORDER ELANA Final Result [place] SUARE[facility] [place] [address] * (ABNORMAL) Differential, auto (08/03/2024 7:40 AM CHEMICAL PREPARER) Neutrophil abs 5.6 1.5 - 6.5 K/cumm Comment:Testing performed by : [facility], [address] [place] [phone] Lymphocyte abs 0.9 0.8 - 3.3 K/cumm [facility] SU[facility] Comment:Testing performed by : [facility], [address] [place] [phone] Monocyte abs 0.6 0.2 - 0.8 K/cumm [facility] Comment:Testing performed by : [facility], [address] [place] [phone] Eosinophil abs 0.8(H) 0.0 - 0.5 K/cumm [facility] Comment:Testing performed by : [facility], [address] [place] [phone] Basophil abs 0.0 0.0 - 0.1 K/cumm [facility] Comment:Testing performed by : [facility], [address] [place] [phone] Neutrophil pct 70.4 % [facility] SU[facility] Comment: Interpretive Data Percent cell count reference ranges are not reported, since discordance with absolute values may lead to misinterpretation of CBC data. Current Interpretive Data was last revised on 2017. Testing performed by: [facility], [address] [place] [phone] Lymphocyte pct 11.2 % [facility] Comment: Interpretive Data Percent cell count reference ranges are not reported, since discordance with absolute values may lead to misinterpretation of CBC data. Current Interpretive Data was last revised on 2017. Testing performed by: [facility], [address] [place] [phone] Monocyte pct 7.7 % [facility] Comment: Interpretive Data Percent cell count reference ranges are not reported, since discordance with absolute values may lead to misinterpretation of CBC data. Current Interpretive Data was last revised on 2017. Testing performed by: [facility], [address] [place] [phone] Eosinophil pct 10.1 % [place] [facility] Comment: Interpretive Data Percent cell count reference ranges are not reported, since discordance with absolute values may lead to misinterpretation of CBC data. Current Interpretive Data was last revised on 2017. Testing performed by: [facility], [address] [place] [phone] Basophil pct 0.6 % [facility] Comment: Interpretive Data Percent cell count reference ranges are not reported, since discordance with absolute values may lead to misinterpretation of CBC data. Current Interpretive Data was last revised on 2017. Testing performed by: [facility], [address] [place] [phone] Blood 08/03/2024 7:40 AM CHEMICAL PREPARER 08/03/2024 7:47 AM CHEMICAL PREPARER us Hermelindo Butler MD LAB BLOOD ORDER ELANA Final Result [place] [facility] [place] [address] * (ABNORMAL) Immunoglobulin free light chains (08/03/2024 7:40 AM CHEMICAL PREPARER) [facility] [place]/Lambda ratio [facility] See Comment 0.26 - 1.65 Comment: Unable to calculate exact result. Interpretive Data The Binding Site FreeLite assay procedure was used. Results from different manufacturers or methods may not be comparable. Serial testing should be performed using the same methods and instrumentation. Current Interpretive Data was last revised on 2023. [place] free light chain [facility] <0.06(L) 0.33 - [...] revised on 2023. Blood 08/03/2024 7:40 AM CHEMICAL PREPARER 08/03/2024 8:24 AM CHEMICAL PREPARER Hermelindo Butler MD LAB BLOOD ORDER ELANA Final Result [facility] [place] [address] * (ABNORMAL) CBC with auto differential (08/03/2024 7:40 AM CHEMICAL PREPARER) [facility] WBC 7.9 3.8 - 9.9 K/cumm Comment:Testing performed by : [facility], [address] [place] [phone] Hgb 13.7 13.0 - 17.5 g/dL MT SUAREZ Comment:Testing performed by : [facility], [address] [place] [phone] Hct 41.5 38.9 - 50.3 % MT SUAREZ Comment:Testing performed by : [facility], [address] [place] [address] Plt 163 150 - 400 K/cumm [facility] Comment:Testing performed by : [facility], [address] [place] [address] MPV 7.8 6.8 - 10.4 fL [facility] Comment:Testing performed by : [facility], [address] [place] [address] RBC 4.50 4.30 - 5.80 M/cumm [facility] Comment:Testing performed by : [facility], [address] [place] [address] MCV 92.1 81.3 - 96.4 fL [facility] Comment:Testing performed by : [facility], [address] [place] [address] MCH 30.4 27.1 - 33.3 pg [facility] SU[facility] Comment:Testing performed by : [facility], [address] [place] [address] MCHC 33.0 32.3 - 35.7 g/dL [facility] Comment:Testing performed by : [facility], [address] [place] [address] RDW CV 16.6(H) 11.1 - 14.9 % MT BJ Comment:Testing performed by : [facility], [address] [place] [address] NRBC abs 0.00 0.00 - 0.01 K/cumm MT BJ Comment:Testing performed by : [facility], [address] [place] [address] Blood 08/03/2024 7:40 AM CHEMICAL PREPARER 08/03/2024 7:47 AM CHEMICAL PREPARER us Hermelindo Butler MD LAB BLOOD ORDER ELANA Final Result [place] SUAREZ [facility] [place] [address] * (ABNORMAL) Protein electrophoresis with reflex, serum with interpretation (08/03/2024 7:40 AM CHEMICAL PREPARER) [facility] Protein, sr 5.7(L) 6.2 - 8.2 g/dL Albumin 3.8 3.2 - 5.0 g/dL [facility] Alpha-1 globulin 0.3 0.2 - 0.4 g/dL [facility] Alpha-2 globulin 0.6 0.5 - 1.0 g/dL [facility] Beta-1 globulin 0.4 0.3 - 0.6 g/dL [facility] Beta-2 globulin 0.3 0.2 - 0.6 g/dL [facility] Gamma globulin 0.2(L) 0.5 - 1.7 g/dL [facility] SPEP interp Please see comment [facility] Comment: No apparent monoclonal peak Decreased gamma globulins Electrophoretic pattern appears similar to previous sample 07/14/24 *See immunotyping for further information Reviewed and signed by Hermelindo Mcnulty MD 08/04/2024 Blood 08/03/2024 7:40 AM CHEMICAL PREPARER 08/03/2024 8:24 AM CHEMICAL PREPARER Hermelindo Butler MD LAB BLOOD ORDER ELANA Final Result Performing Organization Address City/[facility] Co de Phone Number [facility] [place] [address] * Magnesium (08/03/2024 7:40 AM CHEMICAL PREPARER) [facility] Magnesium 2.2 1.4 - 2.5 mg/dL Blood 08/03/2024 7:40 AM CHEMICAL PREPARER 08/03/2024 9:36 AM CHEMICAL PREPARER Hermelindo Butler MD LAB BLOOD ORDER ELANA Final Result [facility] [place] [address] * Lactate dehydrogenase (LD) (08/03/2024 7:40 AM CHEMICAL PREPARER) Pathologist [facility] Lactate dehydrogenase (LDH) 172 100 - 250 Units/L Blood 08/03/2024 7:40 AM CHEMICAL PREPARER 08/03/2024 7:49 AM CHEMICAL PREPARER Hermelindo Butler MD LAB BLOOD ORDER ELANA Final Result Performing Organization Address [facility] de Phone Number [facility] [place] [address] * (ABNORMAL) Hemoglobin A1c (08/03/2024 7:40 AM CHEMICAL PREPARER) [facility] Hgb A1C 5.8(H) 4.0 - 5.6 % Estimated Average Glucose 120 mg/dL [facility] Comment: The ADA recommends reporting an estimated Average Glucose (eAG) with all Hemoglobin A1c results using the equation derived from a study of 507 normal and diabetic adults. Minority populations were underrepresented and children were not included. (Diabetes Care 2020; 43(S1): S66-S76). The eAG is not equivalent to a fasting glucose. Blood 08/03/2024 7:40 AM CHEMICAL PREPARER 08/03/2024 7:49 AM CHEMICAL PREPARER Lyndsey Fagan NP LAB BLOOD ORDERABLES Angeles l Result Performing Organization Address [facility] de Phone Number [facility] [place] [address] * Gamma GT (08/03/2024 7:40 AM CHEMICAL PREPARER) [facility] GGT 23 10 - 50 Units/L Blood 08/03/2024 7:40 AM CHEMICAL PREPARER 08/03/2024 9:36 AM CHEMICAL PREPARER Hermelindo Butler MD LAB BLOOD ORDER ELANA Final Result Performing Organization Address [facility]/ZIP Co de Phone Number [facility] [place] [address] * (ABNORMAL) IgA (08/03/2024 7:40 AM CHEMICAL PREPARER) Immunoglobulin A <50(L) 70 - 400 mg/dL Blood 08/03/2024 7:40 AM CHEMICAL PREPARER 08/03/2024 8:09 AM CHEMICAL PREPARER Hermelindo Butler MD LAB BLOOD ORDER ELANA Final Result Performing Organization Address [facility] [place] [address] * (ABNORMAL) IgM (08/03/2024 7:40 AM CHEMICAL PREPARER) Immunoglobulin M <25(L) 40 - 230 mg/dL Blood 08/03/2024 7:40 AM CHEMICAL PREPARER 08/03/2024 8:09 AM CHEMICAL PREPARER Hermelindo Butler MD LAB BLOOD ORDER ELANA Final Result Performing Organization Address [facility] Co de Phone Number [facility] [place] [address] * (ABNORMAL) IgG (08/03/2024 7:40 AM CHEMICAL PREPARER) Immunoglobulin G <300(L) 700 - 1,600 mg/dL Blood 08/03/2024 7:40 AM CHEMICAL PREPARER 08/03/2024 8:09 AM CHEMICAL PREPARER Hermelindo Butler MD LAB BLOOD ORDER ELANA Final Result Performing Organization Address City/[facility] Co de Phone Number [facility] [place] [address] * (ABNORMAL) Comprehensive metabolic panel (08/03/2024 7:40 AM CHEMICAL PREPARER) Sodium 141 135 - 145 mmol/L Potassium, pl 4.0 3.3 - 4.9 mmol/L [facility] Chloride 104 97 - 110 mmol/L [facility] CO2 30 22 - 32 mmol/L [facility] Anion gap 7 2 - 15 mmol/L [facility] BUN 47(H) 6 - 25 mg/dL [facility] Creatinine 1.92(H) 0.80 - 1.30 mg/dL [facility] Glucose 116 70 - 199 mg/dL [facility] Comment: Interpretive Data Fasting glucose >/= 126 [...] 2022. Calcium 9.2 8.5 - 10.3 mg/dL [facility] Bilirubin, total 0.7 0.1 - 1.2 mg/dL [facility] Protein, pl 6.2(L) 6.5 - 8.5 g/dL [facility] Albumin 3.9 3.5 - 5.0 g/dL [facility] Alk phos 63 40 - 130 Units/L [facility] ALT 15 7 - 55 Units/L [facility] AST 17 10 - 50 Units/L [facility] Blood 08/03/2024 7:40 AM CHEMICAL PREPARER 08/03/2024 7:49 AM CHEMICAL PREPARER Hermelindo Butler MD LAB BLOOD ORDER ELANA Final Result [facility] [place] [address] * (ABNORMAL) Urinalysis reflex to microscopic and culture Urine, clean voided (08/03/2024 7:30 AM CHEMICAL PREPARER) Color, ur Straw Yellow Clarity, ur Clear Clear [facility] Specific gravity, ur 1.012 1.003 - 1.030 [facility] pH, urine 5.5 [facility] Comment: Interpretive Data U rine pH is affected by diet, medications, systemic acid-base disturbances, and renal tubular function. pH may affect urinary stone formation. For example, urine pH below 6.0 may help reduce the tendency for calcium phosphate stones and pH greater than 6.0 may reduce the tendency for uric acid stone formation. Source: [facility] Current Interpretive Data was last revised on 2017 Protein, ur ql Negative Negative [facility] Glucose, ur ql Negative Negative [facility] Ketones, ur Negative Negative [facility] Bilirubin, ur Negative Negative [facility] Blood, ur 2+(A) Negative [facility] Urobilinogen, ur <2.0 <2.0 mg/dL [facility] Nitrite, ur Negative Negative [facility] Leukocyte esterase, ur Negative [facility] UA reflex comment Reflex to microscopic UA will be performed. [facility] Urine, clean voided 08/03/2024 7:30 AM CHEMICAL PREPARER 08/03/2024 7:30 AM CHEMICAL PREPARER Lyndsey Fagan NP LAB MICROBIOLOGY - GENERA L ORDERABLES Final Result [facility] [place] [address] * (ABNORMAL) Urinalysis, microscopic only (08/03/2024 7:30 AM CHEMICAL PREPARER) WBC, ur 6-10(A) 0 - 5 /HPF RBC, ur 11-20(A) 0 - 2 /HPF [facility] Epithelial cells, squamous, ur 1-5 0 - 5 /HPF [facility] Bacteria, ur Trace(A) [facility] Culture Reflex Comment Reflex conditions for urine culture (WBC >10) not met. [facility] Urine, clean voided 08/03/2024 7:30 AM CHEMICAL PREPARER 08/03/2024 7:30 AM CHEMICAL PREPARER Lyndsey Fagan NP LAB URINE ORDERABLES Angeles l Result Performing Organization Address [facility] Co de Phone Number [facility] [place] [address] * Urine culture Urine, clean voided (08/03/2024 7:30 AM CHEMICAL PREPARER) Pathologist [facility] Report Final Report: No growth Urine, clean voided 08/03/2024 7:30 AM CHEMICAL PREPARER 08/03/2024 9:59 AM CHEMICAL PREPARER Narrative [facility] - 08/04/2024 11:14 AM CHEMICAL PREPARER Testing performed by [facility] Microbiology Laboratory ([phone]) Hermelindo Butler MD LAB MICROBIOLOG Y - GENERAL ORDERABLES Final Result Performing Organization Address [facility] Co de Phone Number [facility] [place] [address] * Immunotyping, serum with interpretation (07/13/2024 7:40 AM CHEMICAL PREPARER) Pathologist [facility] Immunosubtraction Please see comment Comment: NO PARAPROTEIN DETECTED Reviewed and signed by Rufino Huff MD, PhD 07/14/2024 Blood 07/13/2024 7:40 AM CHEMICAL PREPARER 07/13/2024 8:42 AM CHEMICAL PREPARER Hermelindo Butler MD LAB BLOOD ORDER ELANA Final Result Performing Organization Address [facility] [place] [address] * (ABNORMAL) eGFR (07/13/2024 7:40 AM CHEMICAL PREPARER) Pathologist [facility] eGFR 57(L) >=60 mL/min/1. 73 m2 Comment: [...] last reviewed 2021. Blood 07/13/2024 7:40 AM CHEMICAL PREPARER 07/13/2024 7:47 AM CHEMICAL PREPARER Hermelindo Butler MD LAB BLOOD ORDER ELANA Final Result [facility] [place] [address] * Differential, auto (07/13/2024 7:40 AM CHEMICAL PREPARER) Neutrophil abs 5.4 1.5 - 6.5 K/cumm Comment:Testing performed by : [facility], [address] [place] [phone] Lymphocyte abs 0.9 0.8 - 3.3 K/cumm [facility] Comment:Testing performed by : [facility], [address] [place] [phone] Monocyte abs 0.5 0.2 - 0.8 K/cumm [place] [facility] Comment:Testing performed by : [facility], [address] [place] [phone] Eosinophil abs 0.5 0.0 - 0.5 K/cumm [place] [facility] Comment:Testing performed by : [facility], [address] [place] [phone] Basophil abs 0.0 0.0 - 0.1 K/cumm [facility]ER[facility]ANK [facility] Comment:Testing performed by : [facility], [address] [place] [phone] Neutrophil pct 73.6 % CERFRANK BJ Comment: Interpretive Data Percent cell count reference ranges are not reported, since discordance with absolute values may lead to misinterpretation of CBC data. Current Interpretive Data was last revised on 2017. Testing performed by: [facility], [address] [place] [phone] Lymphocyte pct 12.0 % CER[facility]ANK BJ Comment: Interpretive Data Percent cell count reference ranges are not reported, since discordance with absolute values may lead to misinterpretation of CBC data. Current Interpretive Data was last revised on 2017. Testing performed by: [facility], [address] [place] [phone] Monocyte pct 7.4 % CER[facility]ANK BJ Comment: Interpretive Data Percent cell count reference ranges are not reported, since discordance with absolute values may lead to misinterpretation of CBC data. Current Interpretive Data was last revised on 2017. Testing performed by: [facility], [address] [place] [phone] Eosinophil pct 6.5 % C[facility]ER BJ Comment: Interpretive Data Percent cell count reference ranges are not reported, since discordance with absolute values may lead to misinterpretation of CBC data. Current Interpretive Data was last revised on 2017. Testing performed by: [facility], [address] [place] [phone] Basophil pct 0.5 % CERNER BJ Comment: Interpretive Data Percent cell count reference ranges are not reported, since discordance with absolute values may lead to misinterpretation of CBC data. Current Interpretive Data was last revised on 2017. Testing performed by: [facility], [address] [place] [phone] Blood 07/13/2024 7:40 AM CHEMICAL PREPARER 07/13/2024 7:46 AM CHEMICAL PREPARER Hermelindo Butler MD LAB BLOOD ORDER ELANA Final Result [place] [facility] [place] [address] * (ABNORMAL) Immunoglobulin free light chains (07/13/2024 7:40 AM CHEMICAL PREPARER) Pathologist [facility] [place]/Lambda ratio [facility] See Comment 0.26 - 1.65 Comment: Unable to calculate exact result. Interpretive Data The Binding Site FreeLite assay procedure was used. Results from different manufacturers or methods may not be comparable. Serial testing should be performed using the same methods and instrumentation. Current Interpretive Data was last revised on 2023. [place] free light chain [facility] <0.06(L) 0.33 - 1.94 mg/dL [facility] Comment: Interpretive Data The Binding Site FreeLite assay procedure was used. Results from different manufacturers or methods may not be comparable. Serial testing should be performed using the same methods and instrumentation. Current Interpretive Data was last revised on 2023. Lambda free light chain [facility] <0.13(L) 0.57 - 2.63 mg/dL [facility] Comment: Interpretive Data The Binding Site FreeLite assay procedure was used. Results from different manufacturers or methods may not be comparable. Serial testing should be performed using the same methods and instrumentation. Current Interpretive Data was last revised on 2023. Blood 07/13/2024 7:40 AM CHEMICAL PREPARER 07/13/2024 8:42 AM CHEMICAL PREPARER Hermelindo Butler MD LAB BLOOD ORDER ELANA Final Result [place] [facility] [place] [address] * (ABNORMAL) CBC with auto differential (07/13/2024 7:40 AM CHEMICAL PREPARER) Pathologist [facility] WBC 7.4 3.8 - 9.9 K/cumm Comment:Testing performed by : [facility], [address] [place] [address] Hgb 14.4 13.0 - 17.5 g/dL C[facility]ER BJ Comment:Testing performed by : [facility], [address] [place] [address] Hct 44.1 38.9 - 50.3 % CERNER BJ Comment:Testing performed by : [facility], [address] [place] [address] Plt 174 150 - 400 K/cumm CERNER BJ Comment:Testing performed by : [facility], [address] [place] [address] MPV 7.5 6.8 - 10.4 fL CERNER BJ Comment:Testing performed by : [facility], [address] [place] [address] RBC 4.75 4.30 - 5.80 M/cumm CERNER BJ Comment:Testing performed by : [facility], [address] [place] [address] MCV 92.8 81.3 - 96.4 fL [facility]ER BJ Comment:Testing performed by : [facility], [address] [place] [address] MCH 30.2 27.1 - 33.3 pg C[facility]ER BJ Comment:Testing performed by : [facility], [address] [place] [address] MCHC 32.6 32.3 - 35.7 g/dL C[facility] BJ Comment:Testing performed by : [facility], [address] [place] [address] RDW CV 16.2(H) 11.1 - 14.9 % CERNER BJ Comment:Testing performed by : [facility], [address] [place] [address] NRBC abs 0.00 0.00 - 0.01 K/cumm C[facility]ER BJ Comment:Testing performed by : [facility], [address] [place] [address] Blood 07/13/2024 7:40 AM CHEMICAL PREPARER 07/13/2024 7:46 AM CHEMICAL PREPARER Hermelindo Butler MD LAB BLOOD ORDER ELANA Final Result Performing Organization Address City/[facility] Co de Phone Number [facility] Department [place] [address] * (ABNORMAL) Protein electrophoresis with reflex, serum with interpretation (07/13/2024 7:40 AM CHEMICAL PREPARER) Pathologist [facility] Protein, sr 5.7(L) 6.2 - 8.2 g/dL Albumin 3.7 3.2 - 5.0 g/dL [facility] Alpha-1 globulin 0.3 0.2 - 0.4 g/dL [facility] Alpha-2 globulin 0.6 0.5 - 1.0 g/dL [facility] Beta-1 globulin 0.4 0.3 - 0.6 g/dL [facility] Beta-2 globulin 0.3 0.2 - 0.6 g/dL [facility] Gamma globulin 0.3(L) 0.5 - 1.7 g/dL [facility] SPEP interp Please see comment [facility] Comment: No apparent monoclonal peak Decreased gamma globulins Electrophoretic pattern appears similar to previous sample 06/23/24 See immunotyping for further information Reviewed and signed by Rufino Huff MD, PhD 07/14/2024 Blood 07/13/2024 7:40 AM CHEMICAL PREPARER 07/13/2024 8:42 AM CHEMICAL PREPARER Hermelindo Butler MD LAB BLOOD ORDER ELANA Final Result Performing Organization Address [facility]/ZIP Co de Phone Number [facility] [place] [address] * Magnesium (07/13/2024 7:40 AM CHEMICAL PREPARER) Pathologist [facility] Magnesium 2.2 1.4 - 2.5 mg/dL Blood 07/13/2024 7:40 AM CHEMICAL PREPARER 07/13/2024 7:47 AM CHEMICAL PREPARER us Hermelindo Butler MD LAB BLOOD ORDER ELANA Final Result Performing Organization Address [facility] de Phone Number [facility] [place] [address] * Lactate dehydrogenase (LD) (07/13/2024 7:40 AM CHEMICAL PREPARER) Lactate dehydrogenase (LDH) 152 100 - 250 Units/L Blood 07/13/2024 7:40 AM CHEMICAL PREPARER 07/13/2024 7:47 AM CHEMICAL PREPARER us Hermelindo Butler MD LAB BLOOD ORDER ELANA Final Result Performing Organization Address [facility] Phone Number [facility] [place] [address] * Gamma GT (07/13/2024 7:40 AM CHEMICAL PREPARER) GGT 27 10 - 50 Units/L Blood 07/13/2024 7:40 AM CHEMICAL PREPARER 07/13/2024 7:47 AM CHEMICAL PREPARER us Hermelindo Butler MD LAB BLOOD ORDER ELANA Final Result Performing Organization Address [facility] de Phone Number [facility] [place] [address] * (ABNORMAL) IgA (07/13/2024 7:40 AM CHEMICAL PREPARER) Immunoglobulin A <50(L) 70 - 400 mg/dL Blood 07/13/2024 7:40 AM CHEMICAL PREPARER 07/13/2024 7:59 AM CHEMICAL PREPARER us Hermelindo Butler MD LAB BLOOD ORDER ELANA Final Result [facility] [place] [address] * (ABNORMAL) IgM (07/13/2024 7:40 AM CHEMICAL PREPARER) [facility] Immunoglobulin M <25(L) 40 - 230 mg/dL Blood 07/13/2024 7:40 AM CHEMICAL PREPARER 07/13/2024 7:59 AM CHEMICAL PREPARER Hermelindo Butler MD LAB BLOOD ORDER ELANA Final Result Performing Organization Address [facility] Co de Phone Number [facility] [place] [address] * (ABNORMAL) IgG (07/13/2024 7:40 AM CHEMICAL PREPARER) [facility] Immunoglobulin G <300(L) 700 - 1,600 mg/dL Blood 07/13/2024 7:40 AM CHEMICAL PREPARER 07/13/2024 7:59 AM CHEMICAL PREPARER Hermelindo Butler MD LAB BLOOD ORDER ELANA Final Result Performing Organization Address [facility] Co de Phone Number [facility] [place] [address] * (ABNORMAL) Comprehensive metabolic panel (07/13/2024 7:40 AM CHEMICAL PREPARER) [facility] Sodium 144 135 - 145 mmol/L Potassium, pl 4.2 3.3 - 4.9 mmol/L [facility] Chloride 107 97 - 110 mmol/L [facility] CO2 33(H) 22 - 32 mmol/L [facility] Anion gap 4 2 - 15 mmol/L [facility] BUN 29(H) 6 - 25 mg/dL [facility] Creatinine 1.34(H) 0.80 - 1.30 mg/dL [facility] Glucose 125 70 - 199 mg/dL [facility] Comment: Interpretive Data Fasting glucose >/= 126 [...] Calcium 9.4 8.5 - 10.3 mg/dL [facility] Bilirubin, total 0.7 0.1 - 1.2 mg/dL [facility] Protein, pl 6.2(L) 6.5 - 8.5 g/dL [facility] Albumin 4.1 3.5 - 5.0 g/dL [facility] Alk phos 65 40 - 130 Units/L [facility] ALT 18 7 - 55 Units/L [facility] AST 16 10 - 50 Units/L [facility] Blood 07/13/2024 7:40 AM CHEMICAL PREPARER 07/13/2024 7:47 AM CHEMICAL PREPARER Hermelindo Butler MD LAB BLOOD ORDER ELANA Final Result [facility] [place] [address] * aPTT (07/13/2024 7:24 AM CHEMICAL PREPARER) aPTT 28 28 - 38 sec Comment: Interpretive Data Heparin therapeutic range: 66.0 - 100.0 seconds. Range based on correlation with therapeutic heparin activity range of 0.3 - 0.7 Units/mL. Current interpretive data was last revised on 2023. Blood 07/13/2024 7:24 AM CHEMICAL PREPARER 07/13/2024 7:59 AM CHEMICAL PREPARER Hermelindo Butler MD LAB BLOOD ORDER ELANA Final Result Performing Organization Address [facility] de Phone Number [facility] [place] [address] * Protime-INR (07/13/2024 7:24 AM CHEMICAL PREPARER) [facility] PT 11.5 9.7 - 13.0 sec INR 1.06 0.90 - 1.20 [facility] Comment: Interpretive data Oral anticoagulant therapeutic ranges: Venous thromboembolism prophylaxis or treatment: 2.0-3.0 CARDIOLOGY Standard range: 2.0-3.0 High-intensity range: 2.5-3.5 Refer to indication-specific guidelines for appropriate target ranges for prosthetic heart valve replacement. Current interpretive data was last revised on 2019. Blood 07/13/2024 7:24 AM CHEMICAL PREPARER 07/13/2024 7:59 AM CHEMICAL PREPARER Hermelindo Butler MD LAB BLOOD ORDER ELANA Final Result Performing Organization Address [facility] de Phone Number [facility] [place] [address] * Immunotyping, serum (06/22/2024 7:20 AM CHEMICAL PREPARER) [facility] Immunosubtraction Please see comment Comment: NO PARAPROTEIN DETECTED Reviewed and signed by Fernando Nunez MD, PhD 06/23/2024 Blood 06/22/2024 7:20 AM CHEMICAL PREPARER 06/22/2024 10:03 AM CHEMICAL PREPARER Hermelindo Butler MD LAB BLOOD ORDER ELANA Final Result Performing Organization Address [facility] Co de Phone Number [facility] [place] [address] * eGFR (06/22/2024 7:20 AM CHEMICAL PREPARER) [facility] eGFR 66 >=60 mL/min/1. 73 m2 Comment: [...] last reviewed 2021. Blood 06/22/2024 7:20 AM CHEMICAL PREPARER 06/22/2024 8:12 AM CHEMICAL PREPARER Hermelindo Butler MD LAB BLOOD ORDER ELANA Final Result [facility] [place] [address] * Differential, auto (06/22/2024 7:20 AM CHEMICAL PREPARER) Neutrophil abs 5.4 1.5 - 6.5 K/cumm Comment:Testing performed by : [facility], [address] [place] [phone] Lymphocyte abs 0.9 0.8 - 3.3 K/cumm [facility] Comment:Testing performed by : [facility], [address] [place] [phone] Monocyte abs 0.5 0.2 - 0.8 K/cumm [facility] Comment:Testing performed by : [facility], [address] [place] [phone] Eosinophil abs 0.2 0.0 - 0.5 K/cumm [facility] Comment:Testing performed by : [facility], [address] [place] [phone] Basophil abs 0.0 0.0 - 0.1 K/cumm [facility] Comment:Testing performed by : [facility], [address] [place] [phone] Neutrophil pct 75.7 % [facility] Comment: Interpretive Data Percent cell count reference ranges are not reported, since discordance with absolute values may lead to misinterpretation of CBC data. Current Interpretive Data was last revised on 2017. Testing performed by: [facility], [address] [place] [phone] Lymphocyte pct 13.1 % [facility] Comment: Interpretive Data Percent cell count reference ranges are not reported, since discordance with absolute values may lead to misinterpretation of CBC data. Current Interpretive Data was last revised on 2017. Testing performed by: [facility], [address] [place] [phone] Monocyte pct 7.1 % [facility] Comment: Interpretive Data Percent cell count reference ranges are not reported, since discordance with absolute values may lead to misinterpretation of CBC data. Current Interpretive Data was last revised on 2017. Testing performed by: [facility], [address] [place] [phone] Eosinophil pct 3.5 % [facility] Comment: Interpretive Data Percent cell count reference ranges are not reported, since discordance with absolute values may lead to misinterpretation of CBC data. Current Interpretive Data was last revised on 2017. Testing performed by: [facility], [address] [place] [phone] Basophil pct 0.6 % [facility] Comment: Interpretive Data Percent cell count reference ranges are not reported, since discordance with absolute values may lead to misinterpretation of CBC data. Current Interpretive Data was last revised on 2017. Testing performed by: [facility], [address] [place] [phone] Blood 06/22/2024 7:20 AM CHEMICAL PREPARER 06/22/2024 8:08 AM CHEMICAL PREPARER Hermelindo Butler MD LAB BLOOD ORDER ELANA Final Result [facility] [place] [address] * (ABNORMAL) Immunoglobulin free light chains (06/22/2024 7:20 AM CHEMICAL PREPARER) Pathologist [facility] [place]/Lambda ratio [facility] See Comment 0.26 - 1.65 Comment: Unable to calculate exact result. Interpretive Data The Binding Site FreeLite assay procedure was used. Results from different manufacturers or methods may not be comparable. Serial testing should be performed using the same methods and instrumentation. Current Interpretive Data was last revised on 2023. [place] free light chain [facility] <0.06(L) 0.33 - 1.94 mg/dL [place] [facility] Comment: Interpretive Data The Binding Site FreeLite assay procedure was used. Results from different manufacturers or methods may not be comparable. Serial testing should be performed using the same methods and instrumentation. Current Interpretive Data was last revised on 2023. Lambda free light chain [facility] <0.13(L) 0.57 - 2.63 mg/dL [facility] Comment: Interpretive Data The Binding Site FreeLite assay procedure was used. Results from different manufacturers or methods may not be comparable. Serial testing should be performed using the same methods and instrumentation. Current Interpretive Data was last revised on 2023. Blood 06/22/2024 7:20 AM CHEMICAL PREPARER 06/22/2024 9:53 AM CHEMICAL PREPARER Hermelindo Butler MD LAB BLOOD ORDER ELAAN Final Result [facility] [place] [address] * (ABNORMAL) CBC with auto differential (06/22/2024 7:20 AM CHEMICAL PREPARER) Pathologist [facility] WBC 7.1 3.8 - 9.9 K/cumm Comment:Testing performed by : [facility], [address] [place] [address] Hgb 14.6 13.0 - 17.5 g/dL [facility] Comment:Testing performed by : [facility], [address] [place] [address] Hct 45.6 38.9 - 50.3 % [facility] Comment:Testing performed by : [facility], [address] [place] [address] Plt 196 150 - 400 K/cumm C[facility] Comment:Testing performed by : [facility], [address] [place] [address] MPV 8.3 6.8 - 10.4 fL [facility] Comment:Testing performed by : [facility], [address] [place] [address] RBC 4.88 4.30 - 5.80 M/cumm [facility] Comment:Testing performed by : [facility], [address] [place] [address] MCV 93.5 81.3 - 96.4 fL [facility] Comment:Testing performed by : [facility], [address] [place] [address] MCH 29.9 27.1 - 33.3 pg [facility] Comment:Testing performed by : [facility], [address] [place] [address] MCHC 31.9(L) 32.3 - 35.7 g/dL [facility] Comment:Testing performed by : [facility], [address] [place] [address] RDW CV 16.0(H) 11.1 - 14.9 % [facility] Comment:Testing performed by : [facility], [address] [place] [address] NRBC abs 0.20(H) 0.00 - 0.01 K/cumm C[facility] Comment:Testing performed by : [facility], [address] [place] [address] Blood 06/22/2024 7:20 AM CHEMICAL PREPARER 06/22/2024 8:08 AM CHEMICAL PREPARER us Hermelindo Butler MD LAB BLOOD ORDER ELANA Final Result Performing Organization Address [facility] [place] [address] * aPTT (06/22/2024 7:20 AM CHEMICAL PREPARER) aPTT 29 28 - 38 sec Comment: Interpretive Data Heparin therapeutic range: 66.0 - 100.0 seconds. Range based on correlation with therapeutic heparin activity range of 0.3 - 0.7 Units/mL. Current interpretive data was last revised on 2023. Blood 06/22/2024 7:20 AM CHEMICAL PREPARER 06/22/2024 9:50 AM CHEMICAL PREPARER Hermelindo Butler MD LAB BLOOD ORDER ELANA Final Result Performing Organization Address [facility] [place] [address] * Protime-INR (06/22/2024 7:20 AM CHEMICAL PREPARER) PT 10.9 9.7 - 13.0 sec INR 1.01 0.90 - 1.20 [facility] Comment: Interpretive data Oral anticoagulant therapeutic ranges: Venous thromboembolism prophylaxis or treatment: 2.0-3.0 CARDIOLOGY Standard range: 2.0-3.0 High-intensity range: 2.5-3.5 Refer to indication-specific guidelines for appropriate target ranges for prosthetic heart valve replacement. Current interpretive data was last revised on 2019. Blood 06/22/2024 7:20 AM CHEMICAL PREPARER 06/22/2024 9:50 AM CHEMICAL PREPARER us Hermelindo Butler MD LAB BLOOD ORDER ELANA Final Result Performing Organization Address [facility] de Phone Number [place] [facility] [place] [address] * (ABNORMAL) Protein electrophoresis with reflex, serum (06/22/2024 7:20 AM CHEMICAL PREPARER) Protein, sr 5.9(L) 6.2 - 8.2 g/dL Albumin 3.7 3.2 - 5.0 g/dL [facility] Alpha-1 globulin 0.3 0.2 - 0.4 g/dL [facility] Alpha-2 globulin 0.7 0.5 - 1.0 g/dL [facility] Beta-1 globulin 0.5 0.3 - 0.6 g/dL [facility] Beta-2 globulin 0.3 0.2 - 0.6 g/dL [facility] Gamma globulin 0.4(L) 0.5 - 1.7 g/dL [facility] SPEP interp Please see comment [facility] Comment: No apparent monoclonal peak Decreased gamma globulins Electrophoretic pattern appears similar to previous sample 05-19-24 See immunotyping for further information Reviewed and signed by Fernando Nunez MD, PhD 06/23/2024 Immunotyping See Immunotyping Results [facility] Blood 06/22/2024 7:20 AM CHEMICAL PREPARER 06/22/2024 9:55 AM CHEMICAL PREPARER us Hermelindo Butler MD LAB BLOOD ORDER ELANA Final Result Performing Organization Address [facility] Co de Phone Number [facility] [place] [address] * Magnesium (06/22/2024 7:20 AM CHEMICAL PREPARER) Pathologist [facility] Magnesium 2.2 1.4 - 2.5 mg/dL Blood 06/22/2024 7:20 AM CHEMICAL PREPARER 06/22/2024 8:12 AM CHEMICAL PREPARER Hermelindo Butler MD LAB BLOOD ORDER ELANA Final Result Performing Organization Address [facility] Co de Phone Number [facility] [place] [address] * Lactate dehydrogenase (LD) (06/22/2024 7:20 AM CHEMICAL PREPARER) Lactate dehydrogenase (LDH) 157 100 - 250 Units/L Blood 06/22/2024 7:20 AM CHEMICAL PREPARER 06/22/2024 8:12 AM CHEMICAL PREPARER Hermelindo Butler MD LAB BLOOD ORDER ELANA Final Result Performing Organization Address [facility] de Phone Number [facility] [place] [address] * Gamma GT (06/22/2024 7:20 AM CHEMICAL PREPARER) Pathologist [facility] GGT 30 10 - 50 Units/L Blood 06/22/2024 7:20 AM CHEMICAL PREPARER 06/22/2024 8:12 AM CHEMICAL PREPARER Hermelindo Butler MD LAB BLOOD ORDER ELANA Final Result Performing Organization Address [facility] de Phone Number [facility] [place] [address] * (ABNORMAL) IgA (06/22/2024 7:20 AM CHEMICAL PREPARER) Pathologist [facility] Immunoglobulin A <50(L) 70 - 400 mg/dL Blood 06/22/2024 7:20 AM CHEMICAL PREPARER 06/22/2024 9:49 AM CHEMICAL PREPARER Hermelindo Butler MD LAB BLOOD ORDER ELANA Final Result Performing Organization Address City/[facility] Co de Phone Number [facility] [place] [address] * (ABNORMAL) IgM (06/22/2024 7:20 AM CHEMICAL PREPARER) [facility] Immunoglobulin M <25(L) 40 - 230 mg/dL Blood 06/22/2024 7:20 AM CHEMICAL PREPARER 06/22/2024 9:49 AM CHEMICAL PREPARER Hermelindo Butler MD LAB BLOOD ORDER ELANA Final Result Performing Organization Address City/[facility]/ZIP Co de Phone Number [facility] [place] [address] * (ABNORMAL) IgG (06/22/2024 7:20 AM CHEMICAL PREPARER) [facility] Immunoglobulin G 423(L) 700 - 1,600 mg/dL Blood 06/22/2024 7:20 AM CHEMICAL PREPARER 06/22/2024 9:49 AM CHEMICAL PREPARER Hermelindo Butler MD LAB BLOOD ORDER ELANA Final Result Performing Organization Address City/[facility] de Phone Number [facility] [place] [address] * (ABNORMAL) Comprehensive metabolic panel (06/22/2024 7:20 AM CHEMICAL PREPARER) [facility] Sodium 141 135 - 145 mmol/L Potassium, pl 4.1 3.3 - 4.9 mmol/L [facility] Chloride 104 97 - 110 mmol/L [facility] CO2 31 22 - 32 mmol/L [facility] Anion gap 6 2 - 15 mmol/L [facility] BUN 24 6 - 25 mg/dL [facility] Creatinine 1.18 0.80 - 1.30 mg/dL [facility] Glucose 111 70 - 199 mg/dL [facility] Comment: Interpretive Data Fasting glucose >/= 126 [...] 2022. Calcium 9.5 8.5 - 10.3 mg/dL [facility] Bilirubin, total 0.7 0.1 - 1.2 mg/dL [facility] Protein, pl 6.3(L) 6.5 - 8.5 g/dL [facility] Albumin 3.8 3.5 - 5.0 g/dL [facility] Alk phos 63 40 - 130 Units/L [facility] ALT 18 7 - 55 Units/L [facility] AST 20 10 - 50 Units/L [facility] Blood 06/22/2024 7:20 AM CHEMICAL PREPARER 06/22/2024 8:12 AM CHEMICAL PREPARER Hermelindo Butler MD LAB BLOOD ORDER ELANA Final Result Performing Organization Address [facility] de Phone Number [facility] [place] [address] * Hepatitis C antibody (10/16/2021 9:50 AM CDT) Pathologist [facility] Hep C Ab Nonreactive Nonreactive [facility] Comment:Antibodies to HCV no t detected. Does NOT exclude the possibility of recent exposure to HCV. Blood 10/16/2021 9:50 AM CDT 10/16/2021 11:22 AM CDT Hermelindo dupree MD LAB MICROBIOLOGY - GENERAL ORDERABLES Edited Result - Final Performing Organization Address [facility] Co de Phone Number [facility] [place] [address] from Last 3 Months or Most Recently Relevant to Health Maintenance Insurance MEDICARE AETNA SENIOR SUPPLEMENT MEDICARE AETNA SENIOR SUPPLEMENT MEDICARE AETNA SENIOR SUPPLEMENT Advance Directives For more information, please contact: [phone] Documents on File Type Date Recorded Patient Marriage Performer Expl anation ADVANCE DIRECTIVE 11/29/2017 11:05 AM FOX R OF MANAGER TESTING ADVANCE DIRECTIVE 11/12/2017 3:59 PM POWER OF MANAGER TESTING * Full Code (Latest Code Status on [...] 12:02 AM 01/06/2018 2:58 PM Care Teams Credit Review Manager Relationship Specialty Start Date End Date Jatin Gamble MD [address] [place] [address] PCP - General 10/07/16 Hermelindo Butler MD [address] [place] [address] Medical Oncologist/Hematologi Medical Oncology 12/02/17 Roberto Rojo MD [address] [place] [address] [facility] 12/02/17 Jatin Gamble MD [address] [place] [address] Referring Physician Internal Medicine 12/02/17 Lyndsey Fagan NP [address] [place] [address] Nurse Practitioner Medical Oncology 08/03/20 Erlin Servin MD [address] [place] [address] Consulting Physician Otolaryngology 10/04/22 [place] [address] [place] [address] Consulting Physician Urology 05/28/23
--- OUTSIDE RECORDS SUMMARY | 2024-08-23 07:17 | XMS_ITS | Clinical Summary ---
Author Organization [facility] Address [address] [place] [address] Care Team Providers Care Physical Education Specialist Name Role Phone Unavailable Primary Care Provider [...]
[2024-08-23 08:16] LABS: Anion Gap 8 mmol/L (4-12); Blood Urea Nitrogen 59 mg/dL (7-18); Calcium 8.7 mg/dL (8.5-10.1); Carbon Dioxide 28 mmol/L (21-32); Chloride 109 mmol/L (98-108); Estimated Glomerular Filt Rate 19; Glucose 115 mg/dL (70-99); Osmolality Calculated 317 mOsm/kg (285-295); Potassium 4.3 mmol/L (3.5-5.1); Sodium 145 mmol/L (136-145)
== END 2024-08-23 07:11 | disposition home or self-care (01) ==
LOC: CHSLAB 07:15
PROVIDERS: PCP Internal Medicine; Visit Provider Internal Medicine
DX: N18.4 Chronic kidney disease, stage 4 (severe) (principal)
CPT/HCPCS: 36415; 80048

== ENCOUNTER 2024-08-30 08:08 | Outpatient (CLI) | payer MEDICARE, SELFPAY ==
--- OUTSIDE RECORDS SUMMARY | 2024-08-30 08:24 | XMS_ITS | Continuity of Care Document ---
Author Organization for; to (do) Centers [facility] [facility] Address [address] [facility] [address] [place] [address] Phone Care Team Providers Care Casework Specialist Name Role Phone Cesar Vora MD, FACS [...] ER 100 mg tablet,extended release - Active Jasper 5 mg-325 mg tablet take 1 tablet [...] Copied on Encounter Office/outpa tient Visit, [facility], [address] [place] [address] [address], [place], [place], [id number], [place] tel:[phone] SEC [place] Eyelid infections (chief complaint) Episcleritis of left eyeOther vitreous opacities, bilateralOth er visual disturbances 2 Vielka Cesar. [address] [facility], [address], [place], [place], [address], [place]. tel:[phone] Specialist: Hermelindo Lopez MD, [address] [facility] [address], [place], [address]. tel:[phone] Provider: Vicky Ray OD, [address] [facility], [place], [address]. tel:[phone] [facility], [address], [place], [place], [address], [place] tel:[phone] SEC [place] Professional yag pc OS evaluation (chief complaint) Bilateral artificial lens implantOther secondary cataract, left eyeCyst of right eyelidPVD (posterior vitreous detachment), left eyeBilateral ocular hypertension Oct-1 8 Jose R Franco. [address] [facility], [address], [place], [place], [address], [place]. tel:[phone] Referring Provider: Michele Orellana OD A, [address] [place] [address] [facility], [place], [address]. tel:[phone] [facility], [address] [place], [place] [address]crest [address], [place], [place], [address], [place] tel:[phone] SEC Steven Sifuentes Yag PC Eval (chief complaint) No Information 7 [place] Cesar. [address] [place], [place] [address]SCL, [address], [place], [place], [address], [place]. tel:[phone] Referring Provider: Michele Orellana OD A, [address] [place] [address], [place], [address]. tel:[phone] [employer] [facility], [address] [address] [employer] [address], [place], [place], [address], [place] tel:[phone] SEC Bethelridge Petrona Coybienvenidorosalio No Information [address] [facility] [employer], [address], [place], [place], [address], [place]. tel:[phone] Contractors[employer] [facility], [facility] [employer] [address], [place], [place], [address], [place] tel:[phone] [facility] No Information [address] [facility] [employer], [address], [place], [place], [address], [place]. tel:[phone] Referring Provider: Michele Orellana OD A, [address] [place] [address], [place], [address]. tel:[phone] [employer] [facility], [address] [place] [address] [address], [place], [place], [address], [place] tel:[phone] SEC Steven N Bear No Information 5 Vielka Guerrero. [address] [facility], [address], [place], [place], [address], [place]. tel:[phone] Referring Provider: Michele Acevedo, [address] [facility], [place], [address]. tel:[phone] [facility], [address] [place] [address] [address], [place], [place], [address], [place] tel:[phone] [facility] No Information [address] [facility] [place] [employer] [facility], [address], [place], [place], [address], [place]. tel:[phone] Referring Provider: Michele Acevedo, [address] [facility], [place], [address]. tel:[phone] [facility], [address] [place] [address] [address], [place], [place], [address], [place] tel:[phone] SEC Steven N [address] Cataract Evaluation (chief complaint) No Information 5 Vielka Guerrero. [address] [place] [address] [employer] [facility], [address], [place], [place], [address], [place]. tel:[phone] Referring Provider: Michele Acevedo, [address] [place], [address]. tel:[phone] Family History Family Member Type Diagnosis Age At Onset Mother Problem (finding) diabetes melli tus in first degree relative Mother Problem (finding) glaucoma Payers Payer name Insurance type Covered republican ID Authoriza tion(s) [place] [id number] Aetna Mdcr Supp CI [id number] Social History Type Description Quantity Date Captured [...]
--- OUTSIDE RECORDS SUMMARY | 2024-08-30 08:24 | XMS_ITS | Encounter Summary ---
Author Organization [facility] Address [address] [place] [address] Phone Care Team Providers Care Legal Cashier Name Role Phone Jatin Gamble MD Primary Care Provider [phone] Hermelindo Butler MD Unavailable Roberto Rojo MD Unavailable Jatin Gamble MD Unavailable [phone] Lyndsey Fagan NP Unavailable Erlin Servin MD Unavailable [phone] Julian Valdez MD Unavailable [phone] Reason for Referral * Consultation (Routine) - Authorized Specialty Diagnoses / Procedures Referred By Contfrancia t Referred To Contact Nephrology Diagnoses Multiple myeloma not having achieved remission (HCC) JOHN (acute kidney injury) Hermelindo Butler MD [address] DIV IM BONE MARROW TRANSPLANT, [address] [place] [address] Phone: tel: fax: [facility] (All Locations) Referral ID Status Reason Start Date Expiration Date Visits Requested Visits Authorized [id number] Authorized Specialty Services Required 08/27/2024 09/26/2025 1 1 Question Answer Please select the performing region: [facility] (All Locations) [167] # of visits: 1 Comments Pt presented with JOHN, discharged yesterday. He has appt with you 10/20, but was hoping for something next week. Can you please contact him to set up sooner appt. Thank you Encounter Details Date Type Department Care Team (Late st Contact Info) Description 08/27/2024 Orders Only [facility] Bone Marrow Transplant [address] [facility] [address] [place] [address] Hermelindo Butler MD [address] DIV IM BONE MARROW TRANSPLANT, [address] [place] [address] Multiple myeloma not having achieved remission (HCC) (Primary Dx); JOHN (acute kidney injury) Social History Tobacco Use Types Packs/Day Years [...] making you feel afraid or unsafe? Denies 08/23/2024 Sex and Gender Information Value Date Recorded Sex Assigned at Not on file Legal Sex 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 BUTCHER MEAT Gender Identity Not on file Sexual Orientation Not on file documented as of this encounter Plan of Treatment Scheduled Orders Name Type Priority Associated Diagnoses Orde r Schedule CBC with auto differential Lab STAT Multiple myeloma not having achieved remission (HCC) Expected: 08/31/2024, Expires: 08/27/2025 Comprehensive metabolic panel Lab STAT Multiple myeloma not having achieved remission (HCC) Expected: 08/31/2024, Expires: 08/27/2025 Magnesium Lab STAT Multiple myeloma not having achieved remission (HCC) Expected: 08/31/2024, Expires: 08/27/2025 Type and screen Lab STAT Multiple myeloma not having achieved remission (HCC) Expected: 08/31/2024, Expires: 08/27/2025 Scheduled Referrals Name Type Priority Associated Diagnoses Order Schedule Ambulatory referral to Nephrology Outpatient Referral Routine Multiple myeloma not having achieved remission (HCC) JOHN (acute kidney injury) Expected: 09/03/2024 (Approximate), Expires: 08/27/2025 documented as of this encounter Visit Diagnoses Diagnosis Multiple myeloma not having achieved remission (HCC)- Primary JOHN (acute kidney injury) documented in this encounter Orders Appointment Requests Count Last Ordered Date Fi rst Ordered Date ONCBCN CLINIC APPOINTMENT REQUEST 1 025 ONCBCN LAB APPOINTMENT 1 08/27/2024 documented in this encounter Care Teams Legal Cashier Relationship Specialty Start Date End Date Jatin Gamble MD [address] [place] [address] PCP - General 10/07/16 Hermelindo Butler MD [address] [place] [address] [facility] Medical Oncology 12/02/17 Roberto Rojo MD [address] [place] [address] [facility] Hematology and Oncology 12/02/17 Jatin Gamble MD [address] [place] [address] Referring Physician Internal Medicine 12/02/17 Lyndsey Fagan NP [address] [place] [address] Nurse Practitioner Medical Oncology 08/03/20 Erlin Serivn MD [address] [place] [address] Consulting Physician Otolaryngology 10/04/22 [place] [address] [place] [address] Consulting Physician Urology 05/28/23 documented as of this encounter
--- OUTSIDE RECORDS SUMMARY | 2024-08-30 08:24 | XMS_ITS | Clinical Summary ---
Author Organization [facility] Address [address] [place] [address] Care Team Providers Care Garage Door Installer Name Role Phone Unavailable Primary Care Provider [...] this topic Meningococcal Vaccine Aged Out No degard karime eligible based on patient's age to complete this topic RSV Immunizations Under 20 Months Aged Out No longer eligible based on patient's age to complete this topic
--- OUTSIDE RECORDS SUMMARY | 2024-08-30 08:24 | XMS_ITS | Encounter Summary ---
Author Organization [facility] Address [address] [place] [address] Phone Care Team Providers Care Cow Trimmer Name Role Phone Jatin Gamble MD Primary Care Provider Hermelindo Butler MD Unavailable Roberto Rojo MD Unavailable [phone] Jatin Gamble MD Unavailable Garry Dukes MD Unavailable [phone] Lyndsey Fagan NP Unavailable Erlin Servin MD Unavailable Julian Valdez MD Unavailable Encounter Details Date Type Department Care Team (Latest Contact Info) Description 10/16/2017 Orders Only [facility] CONVERSION Scanning, Provider Social History Tobacco Use Types Packs/Day Years Used Date Smoking Tobacco: Never Assessed Sex and Gender Information Value Date Recorded Sex Assigned at Not on file Legal Sex 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 CLIENT ADVOCATE Gender Identity Not on file Sexual Orientation [...] documented as of this encounter Care Teams Cow Trimmer Relationship Specialty Start Date End Date Jatin Gamble MD [address] [place] [address] PCP - General 10/07/16 Hermelindo Butler MD [address] [place] [address] [facility] Medical Oncology 12/02/17 Roberto Rojo MD [address] [place] [address] [facility] Hematology and Oncology 12/02/17 Jatin Gamble MD [address] [place] [address] Referring Physician Internal Medicine 12/02/17 Garry Dukes MD [address] [place], [place] [id number] Referring Physician Urology 12/02/17 05/27/23 Lyndsey Fagan NP [address] [place] [address] Nurse Practitioner Medical Oncology 08/03/20 Erlin Servin MD [address] [place] [address] Consulting Physician Otolaryngology 10/04/22 [place] [address] [place] [address] Consulting Physician Urology 05/28/23 documented as of this encounter
--- OUTSIDE RECORDS SUMMARY | 2024-08-30 08:24 | XMS_ITS ---
Author Organization [facility] Address [address] [place] [address] Care Team Providers Care Laboratory Geneticist Name Role Phone Jatin Gamble MD Primary Care Provider Hermelindo Butler MD Unavailable Roberto Rojo MD Unavailable [phone] Jatin Gamble MD Unavailable [phone] Lyndsey Fagan NP Unavailable [phone] Erlin Servin MD Unavailable [phone] Julian Valdez MD Unavailable Active Problems Patient Care Coordination No te Formatting of this note is d ifferent from the original. BMT Inpatient Care Coordination [place] [address] Treatment Plan Clinical Trial [id number] [facility] Reason for Admission JOHN Transplant/IEC Planning BMT/IEC Plan HLA typing/IDMs Insurance Approvals/Issues Discharge Planning Anticipated Discharge Date Patient Education Completed 08/27- Called pt and informed of upcoming appt 08/31; also informed that I sent request for nephrology to see him next week vs May Issue to be Resolved Before Discharge Discharge Disposition Home Requests Sent to Case Management and/or Medical Assistants Post-Discharge Follow-Up Living Situation/Distance from [facility] (45 min) Caregiver Self, Lab/Transfusion Frequency Phone: Fax: Venous Access & Care implanted vascular device Local Oncologist Contact Phone: Fax: Post-Discharge Office Visit (H30) [facility] 08/31 Miscellaneous Notes: Problem Noted Date Diagnosed Date Elevated serum creatinine 08/23/2024 Iron deficiency anemia 08/05/2023 Obesity, morbid 07/17/2023 [...] is a risk of orbital injury and LOGGING WORKER injury which could result in blindness or [...] this. Assessment & Plan (07/09/2022 7:42 PM NEEDLE LEADER): I talked with him quite a bit [...] weeks. Assessment & Plan (05/26/2022 4:16 PM NEEDLE LEADER): He does have pretty significant sinusitis and [...] day. Assessment & Plan (05/26/2022 4:17 PM NEEDLE LEADER): It is very possible that his cough could be due to sinusitis also. Hopefully that will continue to improve as we treat. He understands. 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 BMT following while inpatient Assessment & Plan (10/29/2021 6:59 AM CDT): [...] he got a TTE on 10/19 at [facility] however unclear why not currently in the system - May need to repeat TTE prior to treatment if results unavailable - Continue OI ppx with acyclovir 400mg BID - Begin trial [id number], a Bispecific Antibody Targeting BCMA treatment - [...] he got a TTE on 10/19 at [facility] however unclear why not currently in the system - May need to repeat TTE prior to treatment if results unavailable - Continue OI ppx with acyclovir 400mg BID - Begin trial [id number], a Bispecific Antibody Targeting BCMA treatment - [...] (acute kidney injury) 10/28/2021 Assessment & Plan (08/29/2024 10:55 PM CDT): Creatinine baseline 1.1-1.2 Creatinine increased to 3.37 US Kidney 08/23/2024: Mild to moderate right and mild left hydronephrosis Incomplete bladder emptying with postvoid bladder residual of 397 mL States that he followed with his urologist last week with no significant interventions His PCP has held triamterene/HCTZ due to acute kidney injury [address] Abdomen/Pelvis 08/24/2024:Mild bilateral hydroureteronephrosis with a mildly distended bladder and enlarged prostate,findings may represent sequelae of chronic bladder outlet obstruction and vesicoureteral reflux,unchanged multiple bladder stones,peripheral calcifications of the renal cortices bilaterally, which is new from the prior PET/CT, which may represent sequelae of prior plasmacytomas,lytic lesions of the axial skeleton and bilateral femurs. Nephrology consulted for further evaluation Urine sodium 44 on 08/24/2024 Slowly improving after beckham placement Plan Possible differentials including hydronephrosis and possible chronic bladder outlet obstruction, less likely intrinsic or infiltrative given multiple myeloma appears in remission since Beckham placed Continue home medication triamterene/HCTZ and losartan Urology consulted for further evaluation, they are recommending outpatient follow up Follow Is/Os Follow BMP, replace electrolytes as needed Daily weights ideally standing Renally dose medication Bladder scan every 6 hours to check post residuals Follow up SPEP Given creatinine has been improving, plan will be discharge today with beckham and outpatient urology follow up Assessment & Plan (10/28/2021 7:38 PM CDT): [...] BID Assessment & Plan (05/31/2021 10:51 AM NEEDLE LEADER): Continue home pepcid, asx Renal mass 05/30/2021 Assessment & Plan (05/31/2021 10:51 AM NEEDLE LEADER): Admitted for observation after L renal mass [...] 07/17/2023 Assessment & Plan (05/31/2021 10:52 AM NEEDLE LEADER): Follows with oncology on daratumumab monotherapy -counts [...] blood in urine Follow up pathology from bfekjffln-iou-kgsynhrm high-grade papillary urothelial carcinoma (grade 2) --follow [...] blood in urine Follow up pathology from nqxwzppyd-lag-jexdmhzg high-grade papillary urothelial carcinoma (grade 2) --follow [...] up Resolved Hypertension 11/15/2013 Assessment & Plan (08/29/2024 10:53 PM CDT): Continue home medication triamterene/HCTZ and losartan given improving acute kidney injury Continue home medications nebivolol Started on amlodipine while inpatient due to uncontrolled blood pressure Monitor vitals Assessment & Plan (10/28/2021 7:39 PM CDT): [...] supplementation Assessment & Plan (05/31/2021 10:51 AM NEEDLE LEADER): Stable on home losartan, nebivolol, triamterene-HCTZ 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/23/2013 Current Treatment and Therapy Plans - INPT/OUTPT - [facility] - MM - [id number] - Arm B - Dose Expansion Phase - TNB-383B Monotherapy* Plan Start Date:10/29/2021 Plan Provider:Hermelindo Butler MD Linked Problems Multiple myeloma in relapse (HCC) Treatment Medications Current Day (Day 1 , Cycle 47 - Planned for 08/31/2024) Next Day (Day 1, Cycle 48 - Planned for 09/21/2024) INV-[facility] (/TNB-383B.0001) Etentamig (TNB-383B/ABBV-383) IVPB in 50 mL (ANTI-LAG-3)INV-[facility] Etentamig (TNB-383B/ABBV-383) (/TNB-383B.0001)IN V-[facility] sodium chloride 0.9 % INV-[facility] Etentamig (TNB-383B/ABBV-383) (IVSS-FREE FORMULATION) (/TNB-383B.0001) 40 mg in sodium chloride 0.9% 30 mL IVPBINV-[facility] sodium chloride 0.9 % flush IVPB 20 mL INV-[facility] Etentamig (TNB-383B/ABBV-383) (IVSS-FREE FORMULATION) (/TNB-383B.0001) 40 mg in sodium chloride 0.9% 30 mL IVPBINV-[facility] sodium chloride 0.9 % flush IVPB 20 mL Alteplase (CATHFLO ACTIVASE) - orders for occluded catheters* Plan Start Date: 08/28/2021 Plan Provider:Harriett uJarez MD PhD Linked Problems Multiple myeloma, remission [...] 10/01/2021 daratumumab-f ihj (DARZALEX FASPRO) (DARZALEX FASPRO)daratu mumab-fihj (DARZALEZ FASPRO) (DARZELEX FASPRO)pomali domide (POMALYST) Progressive [...] mGy 1 5 mGy 0 mGy DLP 3,692 mGycm 3,692 mGycm 0 mGycm Resolved Problems Problem Noted [...]
--- OUTSIDE RECORDS SUMMARY | 2024-08-30 08:24 | XMS_ITS | Encounter Summary ---
Author Organization [facility] Healthcare Address [address] [place] [address] Care Team Providers Care Pattern Carrier Name Role Phone Jatin Gamble MD Primary Care Provider Hermelindo Butler MD Unavailable Roberto Rojo MD Unavailable [phone] Jatin Gamble MD Unavailable [phone] Garry Dukes MD Unavailable Lyndsey Fagan NP Unavailable Erlin Servin MD Unavailable [phone] Julian Valdez MD Unavailable Encounter Details Date Type Department Care Team (Late st Contact Info) Description 11/22/2021 Documentation [facility] Case Management [address] [place] [address] Forrest Epstein, RN Social History Tobacco Use Types Packs/Day Years Used Date Smoking Tobacco: Never Smokeless Tobacco: Never Alcohol Use Standard Drinks/Week Comments No 0 (1 standard drink = 0.6 oz pur e alcohol) Sex and Gender Information Value Date Recorded Sex Assigned at Not on file Legal Sex 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 DOUBLE CUTTER Gender Identity Not on file Sexual Orientation [...] documented as of this encounter Care Teams Pattern Carrier Relationship Specialty Start Date End Date Jatin Gamble MD [address] [place] [address] PCP - General 10/07/16 Hermelindo Butler MD [address] [place] [address] Medical Oncologist[facility] 12/02/17 Roberto Rojo MD [address] [place] [id number] Medical Oncologist[facility] Hematology and Oncology 12/02/17 Jatin Gamble MD [address] [place] [address] Referring Physician Internal Medicine 12/02/17 Garry Dukes MD [address] [place], [place] [id number] Referring Physician Urology 12/02/17 05/27/23 Lyndsey Fagan NP [address] [place], [place] [id number] Nurse Practitioner Medical Oncology 08/03/20 Erlin Servin MD [address] [place] [address] Consulting Physician Otolaryngology 10/04/22 [place] [address] [place] [address] Consulting Physician Urology 05/28/23 documented as of this encounter
--- OUTSIDE RECORDS SUMMARY | 2024-08-30 08:25 | XMS_ITS | Clinical Summary ---
Author Organization [facility] Address [address] [place] [address] Care Team Providers Care Accounts Clerk Name Role Phone Jatin Gamble MD Primary Care Provider Hermelindo Butler MD Unavailable Roberto Rojo MD Unavailable [phone] Jatin Gamble MD Unavailable [phone] Lyndsey Fagan NP Unavailable [phone] Erlin Servin MD Unavailable Julian Valdez MD Unavailable Allergies Active Allergy Reactions Criticality Noted Date Comments Immune Globulin(Hum),Capr( Igg) Hives,Flushing (skin) Medium 01/03/2023 See significant event note 01/03/23 Medications potassium chloride ER (KLOR-CON) 10 mEq CR tabletIndicatio ns:hypokalemia prevention Take 1 tablet/capsule (10 mEq total) by mouth daily Takes with food 03/01/20 14 Active TRIAMTERENE-HYD ROCHLOROTHIAZID E 37.5-25 mg per tabletIndicatio ns:hypertension 1 tablet/capsule One tablet daily alternating with 1/2 tablet daily 05/16/20 19 Active HYDROcodone-li taminophen (NORCO) 10-325 mg per tabletIndicatio ns:Pain Take 0.5 tablets by mouth every 8 (eight) hours as needed for pain 120 tablet 12/27/19 21 Active losartan (COZAAR) 50 mg tablet Take 1 tablet (50 mg total) by mouth daily 09/02/19 22 Active triamcinolone (KENALOG) 0.5 % cream Apply topically 2 (two) times a day 15 g 01/28/20 23 Active famotidine (PEPCID) 20 mg tablet Take 1 tablet (20 mg total) by mouth 2 (two) times a day Active budesonide (Pulmicort) 0.5 mg/2 mL nebulizer solutionIndicat ions:Chronic pansinusitis Mix one respule with 10 ml of normal saline for the right nostril and also with the left nostril using a bulb syringe 84 mL 06/03/20 23 Active sodium chloride 0.9% 0.9 % irrigationIndic ations:Chronic pansinusitis Use as directed with Pulmicort 1000 mL 06/03/20 23 Active allopurinoL (ZYLOPRIM) 100 mg tablet Take 1 tablet (100 mg total) by mouth daily 30 tablet 6 12/16/19 24 Active clobetasoL (TEMOVATE) 0.05 % creamIndication s:Multiple myeloma in remission (HCC) Apply topically 2 (two) times a day 60 g 3 08/03/19 25 025 Active acyclovir (ZOVIRAX) 400 mg tabletIndicatio ns:Multiple myeloma, remission status unspecified (HCC) Take 1 tablet (400 mg total) by mouth 2 (two) times a day 60 tablet 11 08/03/19 25 026 Active nebivoloL (BYSTOLIC) 5 mg tablet Take 2 tablets (10 mg total) by mouth daily 60 tablet 08/27/19 25 025 Active amLODIPine (NORVASC) 10 mg tablet Take 0.5 tablets (5 mg total) by mouth daily 15 tablet 08/28/19 25 025 Active nebivoloL (BYSTOLIC) 5 mg tablet 02/26/20 23 025 Discontinued cefpodoxime (VANTIN) 200 mg tabletIndicatio ns:Multiple myeloma in remission (HCC) Take 1 tablet (200 mg total) by mouth 2 (two) times a day for 7 days 14 tablet 02 025 Active Problems Patient Care Coordination No te Formatting of this note is d ifferent from the original. BMT Inpatient Care Coordination [place] [address] Treatment Plan Clinical Trial [id number] Ramesh Reason for Admission JOHN Transplant/IEC Planning BMT/IEC [...] Medical Assistants Post-Discharge Follow-Up Living Situation/Distance from [place], [place] (45 min) Caregiver Self, Lab/Transfusion Frequency Phone: Fax: Venous Access & Care implanted vascular device Local Oncologist Contact Phone: Fax: Post-Discharge Office Visit (H30) [place] 08/31 Miscellaneous Notes: Problem Noted Date Diagnosed [...] is a risk of orbital injury and GEOLOGICAL TECHNICAL OFFICER injury which could result in blindness [...] Assessment & Plan (07/09/2022 7:42 PM HEAD PIECE ASSEMBLER): I talked with him quite a bit [...] Assessment & Plan (05/26/2022 4:16 PM HEAD PIECE ASSEMBLER): He does have pretty significant sinusitis and [...] Assessment & Plan (05/26/2022 4:17 PM HEAD PIECE ASSEMBLER): It is very possible that his cough could be due to sinusitis also. Hopefully that will continue to improve as we treat. He understands. Immunocompromised 11/13/2021 Multiple myeloma not having achieved remission 0 10/28/2021 Cancer Staging:Clinical stage from 10/16/2021:RISS Stage II(Cbpq-3-gairmclikwlle (mg/L): 3.7, Albumin (g/dL): 4.2, ISS: Stage [...] and Dexamethasone in June 2021 Clinical trial [id number] initiated on 10/29/21; C46D1 08/03/24. BMT following [...] he got a TTE on 10/19 at [facility] however unclear why not currently in the system - May need to repeat TTE prior to treatment if results unavailable - Continue OI ppx with acyclovir 400mg BID - Begin trial [id number], a Bispecific Antibody Targeting BCMA treatment - [...] he got a TTE on 10/19 at [facility] however unclear why not currently in the system - May need to repeat TTE prior to treatment if results unavailable - Continue OI ppx with acyclovir 400mg BID - Begin trial [id number], a Bispecific Antibody Targeting BCMA treatment - [...] Assessment & Plan (05/31/2021 10:51 AM HEAD PIECE ASSEMBLER): Continue home pepcid, asx Renal mass 05/30/2021 Assessment & Plan (05/31/2021 10:51 AM HEAD PIECE ASSEMBLER): Admitted for observation after L renal mass [...] Assessment & Plan (05/31/2021 10:52 AM HEAD PIECE ASSEMBLER): Follows with oncology on daratumumab monotherapy -counts [...] blood in urine Follow up pathology from [id number] high-grade papillary urothelial carcinoma (grade 2) --follow [...] blood in urine Follow up pathology from [id number] high-grade papillary urothelial carcinoma (grade 2) --follow [...] Assessment & Plan (05/31/2021 10:51 AM HEAD PIECE ASSEMBLER): Stable on home losartan, nebivolol, triamterene-HCTZ Secondary [...] Encounters Date Type Department Care Team Description 08/27/2024 Documentation Nephrology Ani Anne LCSW 08/27/2024 Orders Only [facility] Bone Marrow Transplant [address] [facility] Floor [address] [place] [phone] Hermelindo Hill MD Multiple myeloma not having achieved remission (HCC) (Primary Dx); JOHN (acute kidney injury) 08/25/2024 6:50 AM CDT Ancillary Procedure [facility] Vascular Lab IP [address] [facility] [address] [place] [address] Arrived 08/23/2024 11:13 PM CDT - 08/26/2024 4:50 PM CDT Hospital Encounter [facility] [address] [place] [address] Hermelindo Hill MD [place], Thabet J.M., MD JOHN (acute kidney injury) (Primary Dx) Discharge Disposition: Discharge to home or self care 08/23/2024 7:10 PM CDT - 08/23/2024 11:59 PM CDT Hospital Encounter [facility] Radiology [address] [place] [address] Discharge Disposition: Discharge to home or self care 08/23/2024 5:24 PM CDT - 08/23/2024 11:59 PM CDT Hospital Encounter [facility] Cancer Care Clinic [facility] ([facility] [address] [place] [address] Hermelindo Hill MD Elevated serum creatinine (Primary Dx); Multiple myeloma, remission status unspecified (HCC) Discharge Disposition: Discharge to home or self care 08/23/2024 Orders Only [address] [address] Hermelindo Hill MD 08/23/2024 Orders Only [facility] Bone Marrow Transplant [address] [address] Hermelindo Hill MD Multiple myeloma, remission status unspecified (HCC) (Primary Dx) 08/20/2024 Orders Only [facility] Scanning, Provider 08/10/2024 Orders Only [facility] Scanning, Provider 08/06/2024 1:45 PM HEAD PIECE ASSEMBLER Clinical Support [facility] - Lab Collection [address] [facility] [place] [place] [address] [place] [address] 08/06/2024 1:00 PM HEAD PIECE ASSEMBLER - 08/06/2024 11:59 PM HEAD PIECE ASSEMBLER Hospital Encounter [facility] Radiology [address] [place] [address] Multiple myeloma, remission status unspecified (HCC) Discharge Disposition: Discharge to home or self care 08/06/2024 8:00 AM HEAD PIECE ASSEMBLER Infusion [facility] - Infusion [address] [facility] Floor [address] [place] [address] Multiple myeloma not having achieved remission (HCC) (Primary Dx); Hypogammaglobuline hakeem 08/06/2024 7:15 AM HEAD PIECE ASSEMBLER Clinical Support [facility] - Lab Collection [address] [facility] Floor [address] [place] [address] Multiple myeloma in relapse (HCC) (Primary Dx); Multiple myeloma, remission status unspecified (HCC); JOHN (acute kidney injury) 08/06/2024 Telephone [facility] Bone Marrow Transplant [address] [place] [phone] Lyndsey Fagan NP 08/06/2024 Orders Only [facility] Bone Marrow Transplant [address] [place] [phone] Lyndsey Fagan NP Multiple myeloma, remission status unspecified (HCC) (Primary Dx) 08/06/2024 Orders Only [facility] Bone Marrow Transplant [address] [place] [phone] Lyndsey Fagan NP JOHN (acute kidney injury) (Primary Dx) 08/06/2024 Orders Only [facility] Bone Marrow Transplant [address] [place] [phone] Hermelindo Hill MD Multiple myeloma, remission status unspecified (HCC) (Primary Dx) 08/03/2024 9:30 AM HEAD PIECE ASSEMBLER Infusion [facility] - Infusion [address] [facility] Floor [address] [place] [address] Multiple myeloma in relapse (HCC) (Primary Dx); Multiple myeloma in remission (HCC) 08/03/2024 8:30 AM HEAD PIECE ASSEMBLER Office Visit [facility] Bone Marrow Transplant [address] [place] [phone] Hermelindo Hill MD Multiple myeloma, remission status unspecified (HCC) (Primary Dx); Multiple myeloma in remission (HCC); Multiple myeloma in relapse (HCC) 08/03/2024 7:30 AM HEAD PIECE ASSEMBLER Clinical Support [facility] - Lab Collection [facility] Floor [address] [place] [address] Multiple myeloma in remission (HCC); Multiple myeloma, remission status unspecified (HCC); Multiple myeloma in relapse (HCC) 08/03/2024 Orders Only [facility] Bone Marrow Transplant [address] [place] [address] 6 [place] [address] Hermelindo Hill MD 08/03/2024 Orders Only [facility] Bone Marrow Transplant [address] [place] [address] 6 [place] [address] Hermelindo Hill MD 08/03/2024 Orders Only [facility] Bone Marrow Transplant [address] [place] [phone] Hermelindo Hill MD 08/02/2024 Telephone [facility] Bone Marrow Transplant [address] [place] [address] Lyndsey Fagan NP 07/30/2024 Telephone [facility] Bone Marrow Transplant [address] [place] [phone] Hermelindo Hill MD 07/27/2024 Telephone [facility] Bone Marrow Transplant [address] [place] [phone] Hermelindo Hill MD 07/26/2024 Orders Only [facility] Bone Marrow Transplant [address] [place] [phone] Hermelindo Hill MD 07/26/2024 Orders Only [facility] Bone Marrow Transplant [address] [place] [address] 6 [place] [address] Hermelindo Hill MD 07/26/2024 Telephone [facility] Bone Marrow Transplant [address] [place] [address] 6 [place] [address] Margaret Kay RMA Medical Question/Miscellan eous 07/13/2024 10:00 AM HEAD PIECE ASSEMBLER Infusion [facility] - Infusion [address] [place] [address] Multiple myeloma in relapse (HCC) (Primary Dx); Multiple myeloma in remission (HCC) 07/13/2024 9:00 AM HEAD PIECE ASSEMBLER Office Visit [facility] Bone Marrow Transplant [facility] [address] [place] [address] Hermelindo Hill MD Multiple myeloma, remission status unspecified (HCC) (Primary Dx); Multiple myeloma in remission (HCC); Hypogammaglobuline hakeem 07/13/2024 8:00 AM HEAD PIECE ASSEMBLER Clinical Support [facility] - Lab Collection [facility] Floor [address] [place] [address] Multiple myeloma in remission (HCC); Multiple myeloma in relapse (HCC); Multiple myeloma, remission status unspecified (HCC) 07/13/2024 Telephone [facility] Bone Marrow Transplant [address] [place] [phone] Fadumo Tobar RN 06/22/2024 8:30 AM HEAD PIECE ASSEMBLER Infusion [facility] - Infusion [address] [facility] Floor [address] [place] [address] Multiple myeloma, remission status unspecified (HCC) (Primary Dx); Multiple myeloma in remission (HCC); Multiple myeloma in relapse (HCC) 06/22/2024 8:00 AM HEAD PIECE ASSEMBLER Office Visit [facility] Bone Marrow Transplant [address] [place] [phone] Hermelindo Hill MD Multiple myeloma in relapse (HCC) (Primary Dx); Multiple myeloma, remission status unspecified (HCC); Hypogammaglobuline hakeem; Obesity, morbid (HCC) 06/22/2024 7:00 AM HEAD PIECE ASSEMBLER Clinical Support [facility] - Lab Collection [address] [place], [place] [address] [facility] 6 [place] [address] Multiple myeloma, remission status unspecified (HCC); Multiple myeloma in relapse (HCC) 06/22/2024 Orders Only [facility] Bone Marrow Transplant [address] [place] [phone] Hermelindo Hill MD 06/22/2024 Orders Only [facility] Bone Marrow Transplant [facility] [address] [address] Hermelindo Hill MD Multiple myeloma in remission (HCC) (Primary Dx); Multiple myeloma in relapse (HCC) 06/14/2024 Telephone [facility] Bone Marrow Transplant [facility] [address] [phone] Margaret Kay, [facility] Reschedule from Last 3 Months Immunizations Immunization [...] cystoscopy for f/u History of radiation therapy 2012 Personal history of chemotherapy has chemo every 21 days at [facility] last tx 09/24/22 Cough patient states D [...] on file Legal Sex 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 HEAD PIECE ASSEMBLER Gender Identity Not on file Sexual Orientation Not on file Obstetrics History Last Filed Vital Signs Vital Sign Reading Time Taken Comments Blood Pressure 140/68 08/26/2024 11:10 AM CDT Pulse 70 08/26/2024 8:06 AM CDT Temperature 36.8 C (98.3 F) 08/26/2024 8:06 AM CDT Respiratory Rate 18 08/26/2024 8:06 AM CDT Oxygen Saturation 98% 08/26/2024 11:10 AM CDT Inhaled Oxygen Concentration - - Weight 130.2 kg (287 lb) 08/25/2024 8:05 PM CDT Height 175.3 cm (5' 9.02 ) 08/23/2024 11:15 PM C DT Body Mass Index 42.36 08/23/2024 11:15 PM CDT Plan of Treatment Health Maintenance Due Date Last Done Comments Colon Cancer Screening-Colonoscopy 1950 Depression Screening 1950 Hepatitis B Screening 1970 Well Visit 65+ 2017 Covid-19 Vaccine (4 - 2023-2 5 season) 2024 06/13/2021, 07/05/2020, 06/07/2020 Fall Risk Assessment 08/26/2025 08/26/2024 DTaP/Tdap/Td Vaccine (3 - Td or Tdap) 06/21/2033 06/21/2023, 12/09/2011 Zoster Vaccine Completed 08/15/2018, 05/10, 02/28/2018 Pneumococcal vaccine 65+ Completed 04/15/2021, 1101/2015 Hepatitis C Screening Completed 10/16/2021 Influenza Vaccine Completed 03/07/2024, , 03/08/2023, Additional history exists Prostate Cancer Screening-PSA Discontinued , 09/23/2023, 09/02/2023, Additional history exists Medical Devices Implanted Type Area Home Organizer Device Identifier Shelf Expiration Date Model / Serial / Lot Other - See Comments Other - see comments Right: Chest Wall Description:Upon arrival to IR, not accessed Procedures Procedure Name Priority Date/Time Associated Diagnosis Comments EGFR Routine 08/26/2024 12:25 AM CDT DIFFERENTIAL AUTO Routine 08/26/2024 12: 25 AM CDT PHOSPHORUS Routine 08/26/2024 12:25 AM CDT COMPREHENSIVE METABOLIC PANEL Routine 08/26/2024 12:25 AM CDT MAGNESIUM Routine 08/26/2024 12:25 AM CDT CBC WITH AUTO DIFFERENTIAL Routine 08/26/2024 12:25 AM CDT LACTATE DEHYDROGENASE Routine 08/26/2024 12:25 AM CDT URIC ACID Routine 08/26/2024 12:25 AM CDT TYPE AND SCREEN Timed 08/26/2024 12:25 AM CDT US VEIN DUPLEX LOWER EXTREMITY BILATERAL COMPLETE IP Routine 08/25/2024 9:30 AM CDT EGFR Routine 08/25/2024 12:34 AM CDT DIFFERENTIAL AUTO Routine 08/25/2024 12: 34 AM CDT PHOSPHORUS Routine 08/25/2024 12:34 AM CDT COMPREHENSIVE METABOLIC PANEL Routine 08/25/2024 12:34 AM CDT MAGNESIUM Routine 08/25/2024 12:34 AM CDT CBC WITH AUTO DIFFERENTIAL Routine 08/25/2024 12:34 AM CDT SODIUM, URINE, RANDOM Routine 08/24/2024 5:[address] ABDOMEN PELVIS WO CONTRAST IP Routine 08/24/2024 11:53 AM CDT DIFFERENTIAL AUTO Routine 08/24/2024 2:3 0 AM CDT CBC WITH AUTO DIFFERENTIAL Routine 08/24/2024 2:30 AM CDT EGFR Routine 08/24/2024 1:12 AM CDT PROTIME-INR Routine 08/24/2024 1:12 AM CDT APTT Routine 08/24/2024 1:12 AM CDT LACTATE DEHYDROGENASE Routine 08/24/2024 1:12 AM CDT URIC ACID Routine 08/24/2024 1:12 AM CDT TYPE AND SCREEN Timed 08/24/2024 1:12 AM CDT PHOSPHORUS Routine 08/24/2024 1:12 AM CDT COMPREHENSIVE METABOLIC PANEL Routine 08/24/2024 1:12 AM CDT MAGNESIUM Routine 08/24/2024 1:12 AM CDT US KIDNEY COMPLETE ED Urgent/IP Urgent 08/23/2024 8:12 PM CDT URINALYSIS, MICROSCOPIC ONLY STAT 08/23/2024 7:01 PM CDT URINALYSIS AND REFLEX TO MICROSCOPIC STAT 08/23/2024 7:01 PM CDT PROTEIN / CREATININE RATIO, URINE, RANDOM STAT 08/23/2024 7:01 PM CDT URINE CULTURE STAT 08/23/2024 7:01 PM CDT EGFR Routine 08/23/2024 6:04 PM CDT Multiple myeloma, remission status unspecified (HCC) DIFFERENTIAL AUTO Routine 08/23/2024 6:0 4 PM CDT Multiple myeloma, remission status unspecified (HCC) CBC WITH AUTO DIFFERENTIAL Routine 08/23/2024 6:04 PM CDT Multiple myeloma, remission status unspecified (HCC) COMPREHENSIVE METABOLIC PANEL Routine 08/23/2024 6:04 PM CDT Multiple myeloma, remission status unspecified (HCC) IGA Routine 08/23/2024 6:04 PM CDT Multiple myeloma, remission status unspecified (HCC) IGG Routine 08/23/2024 6:04 PM CDT Multiple myeloma, remission status unspecified (HCC) IGM Routine 08/23/2024 6:04 PM CDT Multiple myeloma, remission status unspecified (HCC) IMMUNOGLOBULIN FREE LIGHT CHAINS Routine 08/23/2024 6:04 PM CDT Multiple myeloma, remission status unspecified (HCC) LACTATE DEHYDROGENASE Routine 08/23/2024 6:04 PM CDT Multiple myeloma, remission status unspecified (HCC) PROTEIN ELECTROPHORESIS, WITH REFLEX, SERUM Routine 08/23/2024 6:04 PM CDT Multiple myeloma, remission status unspecified (HCC) IMMUNOTYPING Routine 08/23/2024 6:04 PM CDT Multiple myeloma, remission status unspecified (HCC) PHOSPHORUS Routine 08/23/2024 6:04 PM CDT Multiple myeloma, remission status unspecified (HCC) MAGNESIUM Routine 08/23/2024 6:04 PM CDT Multiple myeloma, remission status unspecified (HCC) URIC ACID Routine 08/23/2024 6:04 PM CDT Multiple myeloma, remission status unspecified (HCC) SCAN - LABS 08/20/2024 SCAN - LABS 08/10/2024 US KIDNEY COMPLETE Schedule Routine, Read Routine (OP Routine) 08/06/2024 2:42 PM HEAD PIECE ASSEMBLER Multiple myeloma, remission status unspecified (HCC) URINALYSIS, MICROSCOPIC ONLY Routine 08/06/2024 9:19 AM HEAD PIECE ASSEMBLER JONH (acute kidney injury) PROTEIN / CREATININE RATIO, URINE, RANDOM Routine 08/06/2024 9:19 AM HEAD PIECE ASSEMBLER JOHN (acute kidney injury) URINALYSIS AND REFLEX TO MICROSCOPIC Routine 08/06/2024 9:19 AM HEAD PIECE ASSEMBLER JOHN (acute kidney injury) EGFR Routine 08/06/2024 7:43 AM HEAD PIECE ASSEMBLER Multiple myeloma, remission status unspecified (HCC) DIFFERENTIAL AUTO Routine 08/06/2024 7:4 3 AM HEAD PIECE ASSEMBLER Multiple myeloma, remission status unspecified (HCC) LACTATE DEHYDROGENASE Routine 08/06/2024 7:43 AM HEAD PIECE ASSEMBLER Multiple myeloma, remission status unspecified (HCC) CBC WITH AUTO DIFFERENTIAL Routine 08/06/2024 7:43 AM HEAD PIECE ASSEMBLER Multiple myeloma, remission status unspecified (HCC) COMPREHENSIVE METABOLIC PANEL Routine 08/06/2024 7:43 AM HEAD PIECE ASSEMBLER Multiple myeloma, remission status unspecified (HCC) LIPID PANEL Routine 08/06/2024 7:43 AM HEAD PIECE ASSEMBLER Multiple myeloma, remission status unspecified (HCC) PSA DIAGNOSTIC Routine 08/06/2024 7:43 AM HEAD PIECE ASSEMBLER Multiple myeloma, remission status unspecified (HCC) PROTIME-INR STAT 08/03/2024 9:21 AM HEAD PIECE ASSEMBLER Multiple myeloma in relapse (HCC) APTT STAT 08/03/2024 9:21 AM HEAD PIECE ASSEMBLER Multiple myeloma in relapse (HCC) MAGNESIUM STAT 08/03/2024 7:40 AM HEAD PIECE ASSEMBLER Multiple myeloma in relapse (HCC) GAMMA GT STAT 08/03/2024 7:40 AM HEAD PIECE ASSEMBLER Multiple myeloma in relapse (HCC) EGFR Routine 08/03/2024 7:40 AM HEAD PIECE ASSEMBLER Multiple myeloma, remission status unspecified (HCC) DIFFERENTIAL AUTO Routine 08/03/2024 7:4 0 AM HEAD PIECE ASSEMBLER Multiple myeloma, remission status unspecified (HCC) CBC WITH AUTO DIFFERENTIAL Routine 08/03/2024 7:40 AM HEAD PIECE ASSEMBLER Multiple myeloma, remission status unspecified (HCC) COMPREHENSIVE METABOLIC PANEL Routine 08/03/2024 7:40 AM HEAD PIECE ASSEMBLER Multiple myeloma, remission status unspecified (HCC) IGA Routine 08/03/2024 7:40 AM HEAD PIECE ASSEMBLER Multiple myeloma, remission status unspecified (HCC) IGG Routine 08/03/2024 7:40 AM HEAD PIECE ASSEMBLER Multiple myeloma, remission status unspecified (HCC) IGM Routine 08/03/2024 7:40 AM HEAD PIECE ASSEMBLER Multiple myeloma, remission status unspecified (HCC) IMMUNOGLOBULIN FREE LIGHT CHAINS Routine 08/03/2024 7:40 AM HEAD PIECE ASSEMBLER Multiple myeloma, remission status unspecified (HCC) LACTATE DEHYDROGENASE Routine 08/03/2024 7:40 AM HEAD PIECE ASSEMBLER Multiple myeloma, remission status unspecified (HCC) PROTEIN ELECTROPHORESIS, WITH REFLEX, SERUM Routine 08/03/2024 7:40 AM HEAD PIECE ASSEMBLER Multiple myeloma, remission status unspecified (HCC) IMMUNOTYPING Routine 08/03/2024 7:40 AM HEAD PIECE ASSEMBLER Multiple myeloma, remission status unspecified (HCC) HEMOGLOBIN A1C Routine 08/03/2024 7:40 AM HEAD PIECE ASSEMBLER Multiple myeloma, remission status unspecified (HCC) URINALYSIS, MICROSCOPIC ONLY Routine 08/03/2024 7:30 AM HEAD PIECE ASSEMBLER Multiple myeloma, remission status unspecified (HCC) URINE CULTURE Routine 08/03/2024 7:30 AM HEAD PIECE ASSEMBLER URINALYSIS AND REFLEX TO MICROSCOPIC AND CULTURE Routine 08/03/2024 7:30 AM HEAD PIECE ASSEMBLER Multiple myeloma, remission status unspecified (HCC) EGFR STAT 07/13/2024 7:40 AM HEAD PIECE ASSEMBLER Multiple myeloma in relapse (HCC) DIFFERENTIAL AUTO STAT 07/13/2024 7:4 0 AM HEAD PIECE ASSEMBLER Multiple myeloma in relapse (HCC) IGA Routine 07/13/2024 7:40 AM HEAD PIECE ASSEMBLER Multiple myeloma, remission status unspecified (HCC) IGG Routine 07/13/2024 7:40 AM HEAD PIECE ASSEMBLER Multiple myeloma, remission status unspecified (HCC) IGM Routine 07/13/2024 7:40 AM HEAD PIECE ASSEMBLER Multiple myeloma, remission status unspecified (HCC) IMMUNOGLOBULIN FREE LIGHT CHAINS Routine 07/13/2024 7:40 AM HEAD PIECE ASSEMBLER Multiple myeloma, remission status unspecified (HCC) PROTEIN ELECTROPHORESIS, WITH REFLEX, SERUM Routine 07/13/2024 7:40 AM HEAD PIECE ASSEMBLER Multiple myeloma, remission status unspecified (HCC) IMMUNOTYPING Routine 07/13/2024 7:40 AM HEAD PIECE ASSEMBLER Multiple myeloma, remission status unspecified (HCC) LACTATE DEHYDROGENASE Routine 07/13/2024 7:40 AM HEAD PIECE ASSEMBLER Multiple myeloma in relapse (HCC) GAMMA GT STAT 07/13/2024 7:40 AM HEAD PIECE ASSEMBLER Multiple myeloma in relapse (HCC) MAGNESIUM STAT 07/13/2024 7:40 AM HEAD PIECE ASSEMBLER Multiple myeloma in relapse (HCC) COMPREHENSIVE METABOLIC PANEL STAT 07/13/2024 7:40 AM HEAD PIECE ASSEMBLER Multiple myeloma in relapse (HCC) CBC WITH AUTO DIFFERENTIAL STAT 07/13/2024 7:40 AM HEAD PIECE ASSEMBLER Multiple myeloma in relapse (HCC) APTT STAT 07/13/2024 7:24 AM HEAD PIECE ASSEMBLER Multiple myeloma in relapse (HCC) PROTIME-INR STAT 07/13/2024 7:24 AM HEAD PIECE ASSEMBLER Multiple myeloma in relapse (HCC) IMMUNOTYPING Routine 06/22/2024 7:20 AM HEAD PIECE ASSEMBLER Multiple myeloma, remission status unspecified (HCC) EGFR Routine 06/22/2024 7:20 AM HEAD PIECE ASSEMBLER Multiple myeloma, remission status unspecified (HCC) DIFFERENTIAL AUTO Routine 06/22/2024 7:2 0 AM HEAD PIECE ASSEMBLER Multiple myeloma, remission status unspecified (HCC) CBC WITH AUTO DIFFERENTIAL Routine 06/22/2024 7:20 AM HEAD PIECE ASSEMBLER Multiple myeloma, remission status unspecified (HCC) COMPREHENSIVE METABOLIC PANEL Routine 06/22/2024 7:20 AM HEAD PIECE ASSEMBLER Multiple myeloma, remission status unspecified (HCC) IGA Routine 06/22/2024 7:20 AM HEAD PIECE ASSEMBLER Multiple myeloma, remission status unspecified (HCC) IGG Routine 06/22/2024 7:20 AM HEAD PIECE ASSEMBLER Multiple myeloma, remission status unspecified (HCC) IGM Routine 06/22/2024 7:20 AM HEAD PIECE ASSEMBLER Multiple myeloma, remission status unspecified (HCC) IMMUNOGLOBULIN FREE LIGHT CHAINS Routine 06/22/2024 7:20 AM HEAD PIECE ASSEMBLER Multiple myeloma, remission status unspecified (HCC) LACTATE DEHYDROGENASE Routine 06/22/2024 7:20 AM HEAD PIECE ASSEMBLER Multiple myeloma, remission status unspecified (HCC) PROTEIN ELECTROPHORESIS, WITH REFLEX, SERUM Routine 06/22/2024 7:20 AM HEAD PIECE ASSEMBLER Multiple myeloma, remission status unspecified (HCC) MAGNESIUM STAT 06/22/2024 7:20 AM HEAD PIECE ASSEMBLER Multiple myeloma in relapse (HCC) GAMMA GT STAT 06/22/2024 7:20 AM HEAD PIECE ASSEMBLER Multiple myeloma in relapse (HCC) PROTIME-INR STAT 06/22/2024 7:20 AM HEAD PIECE ASSEMBLER Multiple myeloma in relapse (HCC) APTT STAT 06/22/2024 7:20 AM HEAD PIECE ASSEMBLER Multiple myeloma in relapse (HCC) HEPATITIS C ANTIBODY STAT 10/16/2021 9:50 AM CDT Multiple myeloma in relapse (HCC) from Last 3 Months or Most Recently Relevant to Health Maintenance Results * (ABNORMAL) eGFR (08/26/2024 12:25 AM CDT) eGFR 30(L) >=60 mL/min/1. 73 m2 Comment: Interpretive Data [...] interpretive data was last reviewed 2021. Blood 08/26/2024 12:2 5 AM CDT 08/26/2024 12:35 AM CDT Karlos Hargrove MD LAB BLOOD ORDERABLES Final Result [facility] [place] [address] * (ABNORMAL) Differential, auto (08/26/2024 12:25 AM CDT) Pathologist [facility] Neutrophil abs 5.3 1.5 - 6.5 K/cumm Imm gran abs 0.0 0.0 - 0.1 K/cumm [facility] Lymphocyte abs 0.7(L) 0.8 - 3.3 K/cumm [facility] Monocyte abs 0.6 0.2 - 0.8 K/cumm [facility] Eosinophil abs 0.3 0.0 - 0.5 K/cumm [facility] Basophil abs 0.0 0.0 - 0.1 K/cumm [facility] Neutrophil pct 75.7 % [facility] Comment: Interpretive Data Percent cell count reference ranges are not reported, since discordance with absolute values may lead to misinterpretation of CBC data. Current Interpretive Data was last revised on 2017. Imm gran pct 0.4 % [facility] Comment: Interpretive Data Percent cell count reference ranges are not reported, since discordance with absolute values may lead to misinterpretation of CBC data. Current Interpretive Data was last revised on 2017. Lymphocyte pct 10.4 % [facility] Comment: Interpretive Data Percent cell count reference ranges are not reported, since discordance with absolute values may lead to misinterpretation of CBC data. Current Interpretive Data was last revised on 2017. Monocyte pct 9.0 % [facility] Comment: Interpretive Data Percent cell count reference ranges are not reported, since discordance with absolute values may lead to misinterpretation of CBC data. Current Interpretive Data was last revised on 2017. Eosinophil pct 4.4 % [facility] Comment: Interpretive Data Percent cell count reference ranges are not reported, since discordance with absolute values may lead to misinterpretation of CBC data. Current Interpretive Data was last revised on 2017. Basophil pct 0.1 % [facility] Comment: Interpretive Data Percent cell count reference ranges are not reported, since discordance with absolute values may lead to misinterpretation of CBC data. Current Interpretive Data was last revised on 2017. Blood 08/26/2024 12:2 5 AM CDT 08/26/2024 12:35 AM CDT Karlos Hargrove MD LAB BLOOD ORDERABLES Final Result [facility] [place] [address] * (ABNORMAL) CBC with auto differential (08/26/2024 12:25 AM CDT) WBC 7.0 3.8 - 9.9 K/cumm Hgb 11.8(L) 13.0 - 17.5 g/dL [facility] Hct 35.7(L) 38.9 - 50.3 % [facility] Plt 131(L) 150 - 400 K/cumm [facility] MPV 9.2 9.1 - 12.3 fL [facility] RBC 3.83(L) 4.30 - 5.80 M/cumm [facility] MCV 93.2 81.3 - 96.4 fL [facility] MCH 30.8 27.1 - 33.3 pg [facility] MCHC 33.1 32.3 - 35.7 g/dL [facility] RDW CV 15.4(H) 11.1 - 14.9 % [facility] RDW SD 51.7(H) 35.7 - 48.1 fL [facility] NRBC abs 0.00 0.00 - 0.01 K/cumm [facility] Blood 08/26/2024 12:2 5 AM CDT 08/26/2024 12:35 AM CDT Karlos Hargrove MD LAB BLOOD ORDERABLES Final Result Performing Organization Address [facility] Co de Phone Number [facility] [place] [address] * Type and screen (08/26/2024 12:25 AM CDT) Pathologist [facility] Yehuda, indirect Negative Comment:Patient has previous antibody history ABO Rh A Positive [facility] Blood 08/26/2024 12:2 5 AM CDT 08/26/2024 12:38 AM CDT Narrative [facility] - 08/26/2024 2:23 AM CDT Has the patient had Daratumumab or Isatuximab in the past 6 months?->Unknown Karlos Hargrove MD LAB BLOOD BANK TEST ORDERA BLES Final Result Performing Organization Address City/[facility]/ZIP Co de Phone Number [facility] [place] [address] * (ABNORMAL) Uric acid (08/26/2024 12:25 AM CDT) Pathologist [facility] Uric acid 8.6(H) 3.0 - 8.0 mg/dL Blood 08/26/2024 12:2 5 AM CDT 08/26/2024 12:35 AM CDT [facility]ative [facility] - 08/26/2024 1:10 AM CDT Friday and only. Morning draw. . us Karlos Hargrove MD LAB BLOOD ORDERABLES Final Result [facility] [place] [address] * Phosphorus (08/26/2024 12:25 AM CDT) Phosphorus, pl 3.6 2.3 - 4.5 mg/dL Blood 08/26/2024 12:2 5 AM CDT 08/26/2024 12:35 AM CDT us Karlos Hargrove MD LAB BLOOD ORDERABLES Final Result Performing Organization Address [facility] Co de Phone Number [facility] [place] [address] * Magnesium (08/26/2024 12:25 AM CDT) Magnesium 1.7 1.4 - 2.5 mg/dL Blood 08/26/2024 12:2 5 AM CDT 08/26/2024 12:35 AM CDT us Karlos Hargrove MD LAB BLOOD ORDERABLES Final Result Performing Organization Address City/[facility] Co de Phone Number [facility] [place] [address] * Lactate dehydrogenase (LD) (08/26/2024 12:25 AM CDT) Lactate dehydrogenase (LDH) 167 100 - 250 Units/L Blood 08/26/2024 12:2 5 AM CDT 08/26/2024 12:35 AM CDT Narrative [facility] - 08/26/2024 1:10 AM CDT Friday and only. Morning draw. Karlos Hargrove MD LAB BLOOD ORDERABLES Final Result [facility] [place] [address] * (ABNORMAL) Comprehensive metabolic panel (08/26/2024 12:25 AM CDT) [facility] Sodium 148(H) 135 - 145 mmol/L Potassium, pl 3.4 3.3 - 4.9 mmol/L [facility] Chloride 108 97 - 110 mmol/L [facility] CO2 28 22 - 32 mmol/L [facility] Anion gap 12 2 - 15 mmol/L [facility] BUN 35(H) 6 - 25 mg/dL [facility] Creatinine 2.27(H) 0.80 - 1.30 mg/dL [facility] Glucose 107 70 - 199 mg/dL [facility] Comment: Interpretive Data Fasting glucose >/= 126 [...] interpretive data was last revised 2022. Calcium 8.9 8.5 - 10.3 mg/dL [facility] Bilirubin, total 0.6 0.1 - 1.2 mg/dL [facility] Protein, pl 5.9(L) 6.5 - 8.5 g/dL [facility] Albumin 3.7 3.5 - 5.0 g/dL [facility] Alk phos 60 40 - 130 Units/L [facility] ALT 15 7 - 55 Units/L [facility] AST 13 10 - 50 Units/L [facility] Blood 08/26/2024 12:2 5 AM CDT 08/26/2024 12:35 AM CDT Karlos Hargrove MD LAB BLOOD ORDERABLES Final Result [facility] Department of Laboratories [place], [place] [id number] * US Vein Duplex Lower Extremity Bilateral Complete (08/25/2024 9:30 AM CDT) Anatomical Region Laterality Modality Vascular Bilateral Ultrasound 08/25/2024 8:37 AM CDT Narrative 08/27/2024 11:10 AM CDT [facility] - Department of Vascular Surgery, Vascular Laboratory [address] [place] [id number] Lower Extremity Venous Ultrasound Report Patient Name: BUFFY VALLE Carl : 1950 (73y 8m) Study Date: 08/25/2024 8:37:41 AM Gender: M Tech: Location: [id number] Ref Provider: OLGA KEITH Quality: Adequate Order Provider: OLGA KEITH PROCEDURES: Vascular Report: Venous Duplex imaging was performed bilaterally in the lower extremities. The common femoral, femoral, popliteal, posterior tibial, peroneal veins were evaluated for patency, spontaneity and phasicity with Doppler, compression and augmentation maneuvers. Great saphenous vein proximal at the junction was evaluated with compression maneuvers. INDICATIONS: Localized edema. FINDINGS: Performing Substation Designer: Farzana Owens, RVT. Bilateral: Venous Doppler signals in the bilateral lower extremity are within normal limits for spontaneity and phasicity and respond normally to augmentation maneuvers. No evidence of deep vein thrombus by duplex, proximal to the calf. Comments: Unable to fully compress the left mid to distal femoral vein due to patient pain tolerance. Normal spontaneous and phasic flow noted. No evidence of DVT. CONCLUSIONS: 1. There is no evidence of acute deep vein thrombosis in the lower extremities bilaterally. Noninvasive venous studies cannot rule out isolated calf vein obstruction. HISTORY: HTN, Cancer, obesity. PREVIOUS STUDIES: No previous studies for comparison. DISCLAIMER: The study images and the final report will be retained in the patient chart by the Vascular Laboratory for the legally required time period. This chart constitutes the legal record of any testing performed. ATTESTATION: I have reviewed and interpreted the pertinent images and measurements of this study. I attest to the conclusions in the final report that is provided above. Electronically Signed By: Cesar Cabello MD [facility] [phone] 08/27/2024 10:10:26 AM CDT Procedure Note Cesar Cabello MD - 08/27/2024 [facility] - Department of Vascular Surgery,Vascular Laboratory [address] [place] [address] Lower Extremity Venous Ultrasound Report Patient Name: BUFFY VALLECarl : 1950 (73y 8m) Study Date: 08/25/2024 8:37:41 AM Gender: M Tech: Location: [id number] Ref Provider: OLGA KEITH Quality: Adequate Order Provider: OLGA KEITH PROCEDURES: Vascular Report: Venous Duplex imaging was performed bilaterally in the lower extremities.The common femoral, femoral, popliteal, posterior tibial, peroneal veins wereevaluated for patency, spontaneity and phasicity with Doppler, compression and augmentationmaneuvers. Great saphenous vein proximal at the junction was evaluated with compressionmaneuvers. INDICATIONS: Localized edema. FINDINGS: Performing Substation Designer: Farzana Owens RVT. Bilateral: Venous Doppler signals in the bilateral lower extremity are within normallimits for spontaneity and phasicity and respond normally to augmentation maneuvers.No evidence of deep vein thrombus by duplex, proximal to the calf. Comments: Unable to fully compress the left mid to distal femoral vein due topatient pain tolerance. Normal spontaneous and phasic flow noted. No evidence of DVT. CONCLUSIONS: 1. There is no evidence of acute deep vein thrombosis in the lowerextremities bilaterally. Noninvasive venous studies cannot rule out isolated calf veinobstruction. HISTORY: HTN, Cancer, obesity. PREVIOUS STUDIES: No previous studies for comparison. DISCLAIMER: The study images and the final report will be retained in the patientchart by the Vascular Laboratory for the legally required time period. This chartconstitutes the legal record of any testing performed. ATTESTATION: I have reviewed and interpreted the pertinent images and measurements ofthis study. I attest to the conclusions in the final report that is provided above. Electronically Signed By: Cesar Cabello MD [facility] [phone] 08/27/2024 10:10:26 AM CDT us Olga Keith MD IM US PROCEDURES Final Result * (ABNORMAL) eGFR (08/25/2024 12:34 AM CDT) eGFR 24(L) >=60 mL/min/1. 73 m2 Comment: Interpretive Data [...] interpretive data was last reviewed 2021. Blood 08/25/2024 12:3 4 AM CDT 08/25/2024 12:55 AM CDT us Karlos Hargrove MD LAB BLOOD ORDERABLES Final Result [facility] [place] [address] * (ABNORMAL) Differential, auto (08/25/2024 12:34 AM CDT) Neutrophil abs 5.2 1.5 - 6.5 K/cumm Imm gran abs 0.1 0.0 - 0.1 K/cumm [facility] Lymphocyte abs 0.5(L) 0.8 - 3.3 K/cumm [facility] Monocyte abs 0.5 0.2 - 0.8 K/cumm [facility] Eosinophil abs 0.4 0.0 - 0.5 K/cumm [facility] Basophil abs 0.0 0.0 - 0.1 K/cumm [facility] Neutrophil pct 77.6 % [facility] Comment: Interpretive Data Percent cell count reference ranges are not reported, since discordance with absolute values may lead to misinterpretation of CBC data. Current Interpretive Data was last revised on 2017. Imm gran pct 0.7 % [facility] Comment: Interpretive Data Percent cell count reference ranges are not reported, since discordance with absolute values may lead to misinterpretation of CBC data. Current Interpretive Data was last revised on 2017. Lymphocyte pct 7.9 % [facility] Comment: Interpretive Data Percent cell count reference ranges are not reported, since discordance with absolute values may lead to misinterpretation of CBC data. Current Interpretive Data was last revised on 2017. Monocyte pct 7.5 % [facility] Comment: Interpretive Data Percent cell count reference ranges are not reported, since discordance with absolute values may lead to misinterpretation of CBC data. Current Interpretive Data was last revised on 2017. Eosinophil pct 6.0 % [facility] Comment: Interpretive Data Percent cell count reference ranges are not reported, since discordance with absolute values may lead to misinterpretation of CBC data. Current Interpretive Data was last revised on 2017. Basophil pct 0.3 % [facility] Comment: Interpretive Data Percent cell count reference ranges are not reported, since discordance with absolute values may lead to misinterpretation of CBC data. Current Interpretive Data was last revised on 2017. Blood 08/25/2024 12:3 4 AM CDT 08/25/2024 12:57 AM CDT us Karlos Hargrove MD LAB BLOOD ORDERABLES Final Result [facility] [place] [address] * (ABNORMAL) CBC with auto differential (08/25/2024 12:34 AM CDT) WBC 6.7 3.8 - 9.9 K/cumm Hgb 11.2(L) 13.0 - 17.5 g/dL [facility] Hct 33.3(L) 38.9 - 50.3 % [facility] Plt 136(L) 150 - 400 K/cumm [facility] MPV 9.5 9.1 - 12.3 fL [facility] RBC 3.57(L) 4.30 - 5.80 M/cumm [facility] MCV 93.3 81.3 - 96.4 fL [facility] MCH 31.4 27.1 - 33.3 pg [facility] MCHC 33.6 32.3 - 35.7 g/dL [facility] RDW CV 15.3(H) 11.1 - 14.9 % [facility] RDW SD 51.0(H) 35.7 - 48.1 fL [facility] NRBC abs 0.00 0.00 - 0.01 K/cumm [facility] Blood 08/25/2024 12:3 4 AM CDT 08/25/2024 12:57 AM CDT Karlos Hargrove MD LAB BLOOD ORDERABLES Final Result Performing Organization Address [facility] de Phone Number [facility] [place] [address] * Phosphorus (08/25/2024 12:34 AM CDT) [facility] Phosphorus, pl 3.7 2.3 - 4.5 mg/dL Blood 08/25/2024 12:3 4 AM CDT 08/25/2024 12:55 AM CDT Karlos Hargrove MD LAB BLOOD ORDERABLES Final Result Performing Organization Address City/[facility] Co de Phone Number [facility] [place] [address] * Magnesium (08/25/2024 12:34 AM CDT) Magnesium 1.9 1.4 - 2.5 mg/dL Blood 08/25/2024 12:3 4 AM CDT 08/25/2024 12:55 AM CDT Karlos Hargrove MD LAB BLOOD ORDERABLES Final Result [facility] [place] [address] * (ABNORMAL) Comprehensive metabolic panel (08/25/2024 12:34 AM CDT) Pathologist [facility] Sodium 147(H) 135 - 145 mmol/L Potassium, pl 3.2(L) 3.3 - 4.9 mmol/L [facility] Chloride 109 97 - 110 mmol/L [facility] CO2 26 22 - 32 mmol/L [facility] Anion gap 12 2 - 15 mmol/L [facility] BUN 47(H) 6 - 25 mg/dL [facility] Creatinine 2.74(H) 0.80 - 1.30 mg/dL [facility] Glucose 154 70 - 199 mg/dL [facility] Comment: Interpretive Data Fasting glucose >/= 126 [...] interpretive data was last revised 2022. Calcium 8.4(L) 8.5 - 10.3 mg/dL [facility] Bilirubin, total 0.4 0.1 - 1.2 mg/dL [facility] Protein, pl 5.9(L) 6.5 - 8.5 g/dL [facility] Albumin 3.9 3.5 - 5.0 g/dL [facility] Alk phos 61 40 - 130 Units/L [facility] ALT 18 7 - 55 Units/L [facility] AST 17 10 - 50 Units/L [facility] Blood 08/25/2024 12:3 4 AM CDT 08/25/2024 12:55 AM CDT Karlos Hargrove MD LAB BLOOD ORDERABLES Final Result Performing Organization Address [facility] Co de Phone Number [facility] [place] [address] * Sodium, urine, random (08/24/2024 5:16 PM CDT) Sodium, ur 44 mmol/L Comment: Interpretive Data No reference range established. Current interpretive data was last revised 2018. Urine 08/24/2024 5:16 PM CDT 08/24/2024 5:31 PM CDT Olga Keith MD LAB URINE ORDERABLES Final Resul t Performing Organization Address [facility] de Phone Number [facility] [place] [address] * CT Abdomen Pelvis WO Contrast (08/24/2024 11:53 AM CDT) Anatomical Region Laterality Modality Body N/A Computed Tomogra phy 08/24/2024 12:0 5 PM CDT Impressions 08/24/2024 12:12 PM CDT 1. Mild bilateral hydroureteronephrosis with a mildly distended bladder and enlarged prostate. Findings may represent sequelae of chronic bladder outlet obstruction and vesicoureteral reflux. 2. Unchanged multiple bladder stones. No nephrolithiasis. 3. Bilateral renal cysts. 4. Peripheral calcifications of the renal cortices bilaterally, which is new from the prior PET/CT, which may represent sequelae of prior plasmacytomas. 5. Lytic lesions of the axial skeleton and bilateral femurs. Electronically signed by: Randall Braun M.D. Narrative 08/24/2024 12:12 PM CDT EXAMINATION: Computed tomography of the abdomen and pelvis without intravenous contrast HISTORY: Abdominal pain. TECHNIQUE: Transaxial computed tomographic images of the abdomen and pelvis were obtained without intravenous contrast according to the standard protocol. COMPARISON: Abdominal flank pain. History of multiple myeloma with plasmacytomas. FINDINGS: The lung bases are clear of consolidation. Mild atelectasis adjacent to osteophytes. There is mild hepatic steatosis. There is wall calcifications versus cholelithiasis of the gallbladder. No intrahepatic or extra hepatic ductal dilation. The adrenal glands and spleen are unremarkable. There is an atrophic pancreas. There is a right exophytic renal cyst which now measures up to 9.7 cm, previously up to 8.1 cm. The left interpolar renal cyst. There are new calcifications noted within the superior pole of the left kidney, which is likely representing sequelae from previously biopsied plasmocytoma. There is mild bilateral hydroureteronephrosis without evidence of nephrolithiasis. The bladder is mildly distended with multiple bladder stones present, comparable to the PET/CT dated 10/19/2021. There is mild prostatomegaly. There is no bowel obstruction. The appendix is normal. No free fluid. No free air. Multiple lytic lesions of the axial skeleton including the proximal portion of the bilateral femurs. There is a full-thickness lytic lesion of the femoral neck, which is unchanged from 10/04/2016 and may predispose the patient to pathological fractures. No acute or aggressive osseous abnormalities of the imaged skeleton. Procedure Note Randall Braun MD - 08/24/2024 EXAMINATION: Computed tomography of the abdomen and pelvis without intravenous contrast HISTORY: Abdominal pain. TECHNIQUE: Transaxial computed tomographic images of the abdomen and pelvis were obtained without intravenous contrast according to the standard protocol. COMPARISON: Abdominal flank pain. History of multiple myeloma with plasmacytomas. FINDINGS: The lung bases are clear of consolidation. Mild atelectasis adjacent to osteophytes. There is mild hepatic steatosis. There is wall calcifications versus cholelithiasis of the gallbladder. No intrahepatic or extra hepatic ductal dilation. The adrenal glands and spleen are unremarkable. There is an atrophic pancreas. There is a right exophytic renal cyst which now measures up to 9.7 cm, previously up to 8.1 cm. The left interpolar renal cyst. There are new calcifications noted within the superior pole of the left kidney, which is likely representing sequelae from previously biopsied plasmocytoma. There is mild bilateral hydroureteronephrosis without evidence of nephrolithiasis. The bladder is mildly distended with multiple bladder stones present, comparable to the PET/CT dated 10/19/2021. There is mild prostatomegaly. There is no bowel obstruction. The appendix is normal. No free fluid. No free air. Multiple lytic lesions of the axial skeleton including the proximal portion of the bilateral femurs. There is a full-thickness lytic lesion of the femoral neck, which is unchanged from 10/04/2016 and may predispose the patient to pathological fractures. No acute or aggressive osseous abnormalities of the imaged skeleton. IMPRESSION: 1. Mild bilateral hydroureteronephrosis with a mildly distended bladder and enlarged prostate. Findings may represent sequelae of chronic bladder outlet obstruction and vesicoureteral reflux. 2. Unchanged multiple bladder stones. No nephrolithiasis. 3. Bilateral renal cysts. 4. Peripheral calcifications of the renal cortices bilaterally, which is new from the prior PET/CT, which may represent sequelae of prior plasmacytomas. 5. Lytic lesions of the axial skeleton and bilateral femurs. Electronically signed by: Randall Braun M.D. Olga Keith MD [facility] PROCED[place] Final Result * (ABNORMAL) Differential, auto (08/24/2024 2:30 AM CDT) Neutrophil abs 4.9 1.5 - 6.5 K/cumm Imm gran abs 0.0 0.0 - 0.1 K/cumm [facility] Lymphocyte abs 0.7(L) 0.8 - 3.3 K/cumm [facility] Monocyte abs 0.6 0.2 - 0.8 K/cumm [facility] Eosinophil abs 0.5 0.0 - 0.5 K/cumm [facility] Basophil abs 0.0 0.0 - 0.1 K/cumm [facility] Neutrophil pct 73.7 % [facility] Comment: Interpretive Data Percent cell count reference ranges are not reported, since discordance with absolute values may lead to misinterpretation of CBC data. Current Interpretive Data was last revised on 2017. Imm gran pct 0.6 % [facility] Comment: Interpretive Data Percent cell count reference ranges are not reported, since discordance with absolute values may lead to misinterpretation of CBC data. Current Interpretive Data was last revised on 2017. Lymphocyte pct 10.0 % [facility] Comment: Interpretive Data Percent cell count reference ranges are not reported, since discordance with absolute values may lead to misinterpretation of CBC data. Current Interpretive Data was last revised on 2017. Monocyte pct 8.3 % [facility] Comment: Interpretive Data Percent cell count reference ranges are not reported, since discordance with absolute values may lead to misinterpretation of CBC data. Current Interpretive Data was last revised on 2017. Eosinophil pct 7.1 % [facility] Comment: Interpretive Data Percent cell count reference ranges are not reported, since discordance with absolute values may lead to misinterpretation of CBC data. Current Interpretive Data was last revised on 2017. Basophil pct 0.3 % [facility] Comment: Interpretive Data Percent cell count reference ranges are not reported, since discordance with absolute values may lead to misinterpretation of CBC data. Current Interpretive Data was last revised on 2017. Blood 08/24/2024 2:30 AM CDT 08/24/2024 1:28 AM CDT Karlos Hargrove MD LAB BLOOD ORDERABLES Final Result [facility] One [facility] [place] [address] * (ABNORMAL) CBC with auto differential (08/24/2024 2:30 AM CDT) WBC 6.6 3.8 - 9.9 K/cumm Hgb 10.9(L) 13.0 - 17.5 g/dL [facility] Hct 33.1(L) 38.9 - 50.3 % [facility] Plt 130(L) 150 - 400 K/cumm [facility] MPV 10.0 9.1 - 12.3 fL [facility] RBC 3.50(L) 4.30 - 5.80 M/cumm [facility] MCV 94.6 81.3 - 96.4 fL [facility] MCH 31.1 27.1 - 33.3 pg [facility] MCHC 32.9 32.3 - 35.7 g/dL [facility] RDW CV 15.3(H) 11.1 - 14.9 % [facility] RDW SD 51.8(H) 35.7 - 48.1 fL [facility] NRBC abs 0.00 0.00 - 0.01 K/cumm [facility] Blood 08/24/2024 2:30 AM CDT 08/24/2024 1:28 AM CDT Karlos Hargrove MD LAB BLOOD ORDERABLES Final Result [facility] One [facility] [place] [address] * (ABNORMAL) eGFR (08/24/2024 1:12 AM CDT) eGFR 20(L) >=60 mL/min/1. 73 m2 Comment: Interpretive Data [...] interpretive data was last reviewed 2021. Blood 08/24/2024 1:12 AM CDT 08/24/2024 1:35 AM CDT us Karlos Hargrove MD LAB BLOOD ORDERABLES Final Result Performing Organization Address [facility] Co de Phone Number [facility] [place] [address] * aPTT (08/24/2024 1:12 AM CDT) aPTT 32 28 - 38 sec Comment: Interpretive Data Heparin therapeutic range: 66.0 - 100.0 seconds. Range based on correlation with therapeutic heparin activity range of 0.3 - 0.7 Units/mL. Current interpretive data was last revised on 2023. Blood 08/24/2024 1:12 AM CDT 08/24/2024 1:53 AM CDT Result [facility] Karlos Hargrove MD LAB BLOOD ORDERABLES Final Result Performing Organization Address [facility] [place] [address] * Protime-INR (08/24/2024 1:12 AM CDT) PT 11.7 9.7 - 13.0 sec INR 1.08 0.90 - 1.20 [facility] Comment: Interpretive data Oral anticoagulant therapeutic ranges: Venous thromboembolism prophylaxis or treatment: 2.0-3.0 CARDIOLOGY Standard range: 2.0-3.0 High-intensity range: 2.5-3.5 Refer to indication-specific guidelines for appropriate target ranges for prosthetic heart valve replacement. Current interpretive data was last revised on 2019. Blood 08/24/2024 1:12 AM CDT 08/24/2024 1:53 AM CDT Result [facility] us Karlos Hargrove MD LAB BLOOD ORDERABLES Final Result Performing Organization Address [facility] [place] [address] * Type and screen (08/24/2024 1:12 AM CDT) Yehuda, indirect Negative Comment:Patient has previous antibody history ABO Rh A Positive [facility] Blood 08/24/2024 1:12 AM CDT 08/24/2024 1:36 AM CDT Narrative [facility] - 08/24/2024 2:36 AM CDT Has the patient had Daratumumab or Isatuximab in the past 6 months?->Unknown Karlos Hargrove MD LAB BLOOD BANK TEST ORDERA BLES Final Result Performing Organization Address [facility] [place] [address] * (ABNORMAL) Uric acid (08/24/2024 1:12 AM CDT) Pathologist [facility] Uric acid 9.5(H) 3.0 - 8.0 mg/dL Blood 08/24/2024 1:12 AM CDT 08/24/2024 1:35 AM CDT Narrative [facility] - 08/24/2024 2:47 AM CDT Friday and only. Morning draw. . Karlos Hargrove MD LAB BLOOD ORDERABLES Final Result Performing Organization Address [facility] [place] [address] * Phosphorus (08/24/2024 1:12 AM CDT) Phosphorus, pl 4.5 2.3 - 4.5 mg/dL Blood 08/24/2024 1:12 AM CDT 08/24/2024 1:35 AM CDT us Karlos Hargrove MD LAB BLOOD ORDERABLES Final Result Performing Organization Address [facility] de Phone Number [facility] [place] [address] * Magnesium (08/24/2024 1:12 AM CDT) [facility] Magnesium 2.0 1.4 - 2.5 mg/dL Blood 08/24/2024 1:12 AM CDT 08/24/2024 1:35 AM CDT us Karlos Hargrove MD LAB BLOOD ORDERABLES Final Result Performing Organization Address [facility] [place] [address] * Lactate dehydrogenase (LD) (08/24/2024 1:12 AM CDT) [facility] Lactate dehydrogenase (LDH) 226 100 - 250 Units/L Blood 08/24/2024 1:12 AM CDT 08/24/2024 1:35 AM CDT Narrative [facility] - 08/24/2024 2:47 AM CDT Friday and only. Morning draw. us Karlos Hargrove MD LAB BLOOD ORDERABLES Final Result Performing Organization Address [facility] [place] [address] * (ABNORMAL) Comprehensive metabolic panel (08/24/2024 1:12 AM CDT) [facility] Sodium 148(H) 135 - 145 mmol/L Potassium, pl 3.6 3.3 - 4.9 mmol/L [facility] Chloride 111(H) 97 - 110 mmol/L [facility] CO2 25 22 - 32 mmol/L [facility] Anion gap 12 2 - 15 mmol/L [facility] BUN 56(H) 6 - 25 mg/dL [facility] Creatinine 3.16(H) 0.80 - 1.30 mg/dL [facility] Glucose 102 70 - 199 mg/dL [facility] Comment: Interpretive Data Fasting glucose >/= 126 [...] interpretive data was last revised 2022. Calcium 8.5 8.5 - 10.3 mg/dL [facility] Bilirubin, total 0.4 0.1 - 1.2 mg/dL [facility] Protein, pl 5.7(L) 6.5 - 8.5 g/dL [facility] Albumin 3.6 3.5 - 5.0 g/dL [facility] Alk phos 62 40 - 130 Units/L [facility] ALT 16 7 - 55 Units/L [facility] AST 11 10 - 50 Units/L [facility] Blood 08/24/2024 1:12 AM CDT 08/24/2024 1:35 AM CDT Karlos Hargrove MD LAB BLOOD ORDERABLES Final Result [facility] One [facility] Department [place] [address] * US Kidney Complete (08/23/2024 8:12 PM CDT) Anatomical Region Laterality Modality Kidney N/A Ultrasound 08/23/2024 8:24 PM CDT Impressions 08/23/2024 9:09 PM CDT Unchanged mild to moderate right and mild left hydronephrosis. Dictated by: Nnamdi Nair MD The radiology attending physician has personally reviewed this study, and had reviewed and/or edited this written report and agrees with it. Electronically signed by: Qian Barnes M.D. Narrative 08/23/2024 9:09 PM CDT EXAMINATION: COMPLETE RENAL SONOGRAM HISTORY: Elevated creatinine COMPARISON: Renal ultrasound from 07/29/2024 FINDINGS: Kidneys: The echogenicity of both kidneys is normal. The kidneys are borderline large in size. The right kidney measures 13.3 cm in length, and the left, 12.8 cm in length. There is mild bilateral hydronephrosis in either kidney. There are no renal calculi visualized. Unchanged large bilateral renal cysts. Bladder: The urinary bladder is normal Procedure Note Qian Barnes MD - 08/23/2024 EXAMINATION: COMPLETE RENAL SONOGRAM HISTORY: Elevated creatinine COMPARISON: Renal ultrasound from 07/29/2024 FINDINGS: Kidneys: The echogenicity of both kidneys is normal. The kidneys are borderline large in size. The right kidney measures 13.3 cm in length, and the left, 12.8 cm in length. There is mild bilateral hydronephrosis in either kidney. There are no renal calculi visualized. Unchanged large bilateral renal cysts. Bladder: The urinary bladder is normal IMPRESSION: Unchanged mild to moderate right and mild left hydronephrosis. Dictated by: Nnamdi Nair MD The radiology attending physician has personally reviewed this study, and had reviewed and/or edited this written report and agrees with it. Electronically signed by: Qian Barnes M.D. us Kinga Jones INSPECTOR OF [employer]EDGING IMG US PROCEDURES Final R esult * (ABNORMAL) Urinalysis reflex to microscopic (08/23/2024 7:01 PM CDT) Color, ur Straw Yellow Clarity, ur Clear Clear [facility] Specific gravity, ur 1.011 1.003 - 1.030 [facility] pH, urine 5.5 [facility] Comment: Interpretive Data U rine pH is affected by diet, medications, systemic acid-base disturbances, and renal tubular function. pH may affect urinary stone formation. For example, urine pH below 6.0 may help reduce the tendency for calcium phosphate stones and pH greater than 6.0 may reduce the tendency for uric acid stone formation. Source: [facility] Current Interpretive Data was last revised on 2017 Protein, ur ql Negative Negative [facility] Glucose, ur ql Negative Negative [facility]] Ketones, ur Negative Negative [facility] Bilirubin, ur Negative Negative [facility] Blood, ur 2+(A) Negative [facility]] Urobilinogen, ur <2.0 <2.0 mg/dL [facility]] Nitrite, ur Negative Negative [facility] Leukocyte esterase, ur Trace(A) Negative [facility]] UA reflex comment Reflex to microscopic UA will be performed. [facility] Urine 08/23/2024 7:01 PM CDT 08/23/2024 7:15 PM CDT Kinga Jones INSPECTOR [employer]EDGING LAB URINE ORDERABLES [place] l Result Performing Organization Address City/[facility] Co de Phone Number [facility] One [facility] [place] [address] * Protein / creatinine ratio, urine, random (08/23/2024 7:01 PM CDT) Protein, ur, quant 6.4 mg/dL Comment: Interpretive Data No reference range established. Current interpretive data was last revised 2018. Creatinine Ur 74.0 mg/dL [facility] Comment: Interpretive Data No reference range established. Current interpretive data was last revised 2018. Protein/creatinin e ratio 86.5 0.0 - 180.0 mg/g CR [facility] Urine 08/23/2024 7:01 PM CDT 08/23/2024 7:28 PM CDT Kinga Jones INSPECTOR OF [employer]EDGING LAB URINE ORDERABLES [place] l Result Performing Organization Address City/[facility]/ZIP Co de Phone Number [facility] [place] [address] * (ABNORMAL) Urinalysis, microscopic only (08/23/2024 7:01 PM CDT) Pathologist [facility] WBC, ur 0-5 0 - 5 /HPF RBC, ur 6-10(A) 0 - 2 /HPF [facility] Urine 08/23/2024 7:01 PM CDT 08/23/2024 7:15 PM CDT Kinga Jones NP LAB URINE ORDERABLES [place] l Result Performing Organization Address [facility] Co de Phone Number [facility] [place] [address] * Urine culture Urine, clean voided (08/23/2024 7:01 PM CDT) Pathologist [facility] Report Final Report: Less than 100,000 colonies/mL (clinically insignificant growth based on current clinical standards) Organism (CLINICALLY INSIGNIFICANT GROWTH [facility] Urine, clean voided 08/23/2024 7:01 PM CDT 08/23/2024 8:52 PM CDT Narrative [facility] - 08/25/2024 8:02 AM CDT Indications for Culture:->Other (specify) Other Indication:->elevated creatinine Specimen received in a sterile container. Testing performed by [facility] ([phone]) Kinga Jones NP LAB MICROBIOLOGY - GENERA L ORDERABLES Final Result Performing Organization Address [facility] [place] [address] * Immunotyping, serum with interpretation (08/23/2024 6:04 PM CDT) Pathologist [facility] Immunosubtraction Please see comment Comment: NO PARAPROTEIN DETECTED Reviewed and signed by Fernando Nunez MD, PhD 08/24/2024 Blood 08/23/2024 6:04 PM CDT 08/23/2024 6:13 PM CDT Hermelindo Butler MD LAB BLOOD ORDER ELANA Final Result Performing Organization Address City/[facility] Co de Phone Number [facility] [place] [address] * (ABNORMAL) eGFR (08/23/2024 6:04 PM CDT) [facility] eGFR 19(L) >=60 mL/min/1. 73 m2 Comment: Interpretive Data [...] interpretive data was last reviewed 2021. Blood 08/23/2024 6:04 PM CDT 08/23/2024 6:13 PM CDT us Hermelindo Butler MD LAB BLOOD ORDER ELANA Final Result [facility] [place] [address] * (ABNORMAL) Differential, auto (08/23/2024 6:04 PM CDT) Neutrophil abs 6.5 1.5 - 6.5 K/cumm Imm gran abs 0.0 0.0 - 0.1 K/cumm [facility] Lymphocyte abs 0.7(L) 0.8 - 3.3 K/cumm [facility] Monocyte abs 0.6 0.2 - 0.8 K/cumm [facility] Eosinophil abs 0.6(H) 0.0 - 0.5 K/cumm [facility] Basophil abs 0.0 0.0 - 0.1 K/cumm [facility] Neutrophil pct 77.0 % [facility] Comment: Interpretive Data Percent cell count reference ranges are not reported, since discordance with absolute values may lead to misinterpretation of CBC data. Current Interpretive Data was last revised on 2017. Imm gran pct 0.5 % [facility] Comment: Interpretive Data Percent cell count reference ranges are not reported, since discordance with absolute values may lead to misinterpretation of CBC data. Current Interpretive Data was last revised on 2017. Lymphocyte pct 8.3 % [facility] Comment: Interpretive Data Percent cell count reference ranges are not reported, since discordance with absolute values may lead to misinterpretation of CBC data. Current Interpretive Data was last revised on 2017. Monocyte pct 7.3 % [facility] Comment: Interpretive Data Percent cell count reference ranges are not reported, since discordance with absolute values may lead to misinterpretation of CBC data. Current Interpretive Data was last revised on 2017. Eosinophil pct 6.5 % [facility] Comment: Interpretive Data Percent cell count reference ranges are not reported, since discordance with absolute values may lead to misinterpretation of CBC data. Current Interpretive Data was last revised on 2017. Basophil pct 0.4 % [facility] Comment: Interpretive Data Percent cell count reference ranges are not reported, since discordance with absolute values may lead to misinterpretation of CBC data. Current Interpretive Data was last revised on 2017. Blood 08/23/2024 6:04 PM CDT 08/23/2024 6:12 PM CDT Hermelindo Butler MD LAB BLOOD ORDER ELANA Final Result [facility] One [facility] [place] [address] * (ABNORMAL) Immunoglobulin free light chains (08/23/2024 6:04 PM CDT) Pathologist [facility] Kathryn/Lambda ratio [facility] <0.40 0.26 - 1.65 Comment: Interpretive Data The Binding Site FreeLite assay procedure was used. Results from different manufacturers or methods may not be comparable. Serial testing should be performed using the same methods and instrumentation. Current Interpretive Data was last revised on 2023. Kathryn free light chain BJH <0.06(L) 0.33 - 1.94 mg/dL [facility] Comment: Interpretive Data The Binding Site FreeLite assay procedure was used. Results from different manufacturers or methods may not be comparable. Serial testing should be performed using the same methods and instrumentation. Current Interpretive Data was last revised on 2023. Lambda free light chain BJH 0.15(L) 0.57 - 2.63 mg/dL [facility] Comment: Interpretive Data The Binding Site FreeLite assay procedure was used. Results from different manufacturers or methods may not be comparable. Serial testing should be performed using the same methods and instrumentation. Current Interpretive Data was last revised on 2023. Blood 08/23/2024 6:04 PM CDT 08/23/2024 6:12 PM CDT Hermelindo Butler MD LAB BLOOD ORDER ELANA Final Result [facility] One [facility] [place] [address] * (ABNORMAL) CBC with auto differential (08/23/2024 6:04 PM CDT) Pathologist [facility] WBC 8.5 3.8 - 9.9 K/cumm Hgb 11.8(L) 13.0 - 17.5 g/dL [facility] Hct 35.6(L) 38.9 - 50.3 % [facility] Plt 131(L) 150 - 400 K/cumm [facility] MPV 9.8 9.1 - 12.3 fL [facility] RBC 3.78(L) 4.30 - 5.80 M/cumm [facility] MCV 94.2 81.3 - 96.4 fL [facility] MCH 31.2 27.1 - 33.3 pg [facility] MCHC 33.1 32.3 - 35.7 g/dL [facility] RDW CV 15.2(H) 11.1 - 14.9 % [facility] RDW SD 51.2(H) 35.7 - 48.1 fL [facility] NRBC abs 0.00 0.00 - 0.01 K/cumm [facility] Blood 08/23/2024 6:04 PM CDT 08/23/2024 6:12 PM CDT Hermelindo Butler MD LAB BLOOD ORDER ELANA Final Result Performing Organization Address City/[facility]/ZIP Co de Phone Number [facility] [place] [address] * (ABNORMAL) Uric acid (08/23/2024 6:04 PM CDT) Uric acid 9.5(H) 3.0 - 8.0 mg/dL Blood 08/23/2024 6:04 PM CDT 08/23/2024 6:13 PM CDT Hermelindo Butler MD LAB BLOOD ORDER ELANA Final Result [facility] [place] [address] * (ABNORMAL) Protein electrophoresis with reflex, serum with interpretation (08/23/2024 6:04 PM CDT) Protein, sr 5.9(L) 6.2 - 8.2 g/dL Albumin 3.9 3.2 - 5.0 g/dL [facility] Alpha-1 globulin 0.4 0.2 - 0.4 g/dL [facility] Alpha-2 globulin 0.7 0.5 - 1.0 g/dL [facility] Beta-1 globulin 0.4 0.3 - 0.6 g/dL [facility] Beta-2 globulin 0.3 0.2 - 0.6 g/dL [facility] Gamma globulin 0.2(L) 0.5 - 1.7 g/dL [facility] SPEP interp Please see comment [facility] Comment: No apparent monoclonal peak Decreased gamma globulins Electrophoretic pattern appears similar to previous sample 08/04/24 See immunotyping for further information Reviewed and signed by Fernando Nunez MD, PhD 08/24/2024 Blood 08/23/2024 6:04 PM CDT 08/23/2024 6:13 PM CDT Hermelindo Butler MD LAB BLOOD ORDER ELANA Final Result [facility] [place] [address] * (ABNORMAL) Phosphorus (08/23/2024 6:04 PM CDT) Phosphorus, pl 4.7(H) 2.3 - 4.5 mg/dL Blood 08/23/2024 6:04 PM CDT 08/23/2024 6:13 PM CDT Hermelindo Butler MD LAB BLOOD ORDER ELANA Final Result [facility] [place] [address] * Magnesium (08/23/2024 6:04 PM CDT) Magnesium 1.9 1.4 - 2.5 mg/dL Blood 08/23/2024 6:04 PM CDT 08/23/2024 6:13 PM CDT Hermelindo Butler MD LAB BLOOD ORDER ELANA Final Result Performing Organization Address [facility] de Phone Number [facility] [place] [address] * Lactate dehydrogenase (LD) (08/23/2024 6:04 PM CDT) Pathologist [facility] Lactate dehydrogenase (LDH) 198 100 - 250 Units/L Blood 08/23/2024 6:04 PM CDT 08/23/2024 6:13 PM CDT Hermelindo Butler MD LAB BLOOD ORDER ELANA Final Result Performing Organization Address [facility] de Phone Number [facility] [place] [address] * (ABNORMAL) IgA (08/23/2024 6:04 PM CDT) Pathologist [facility] Immunoglobulin A <50(L) 70 - 400 mg/dL Blood 08/23/2024 6:04 PM CDT 08/23/2024 6:13 PM CDT Hermelindo Butler MD LAB BLOOD ORDER ELANA Final Result Performing Organization Address [facility] de Phone Number [facility] [place] [address] * (ABNORMAL) IgM (08/23/2024 6:04 PM CDT) Immunoglobulin M <25(L) 40 - 230 mg/dL Blood 08/23/2024 6:04 PM CDT 08/23/2024 6:13 PM CDT Hermelindo Butler MD LAB BLOOD ORDER ELANA Final Result [facility] [place] [address] * (ABNORMAL) IgG (08/23/2024 6:04 PM CDT) Pathologist [facility] Immunoglobulin G <300(L) 700 - 1,600 mg/dL Blood 08/23/2024 6:04 PM CDT 08/23/2024 6:13 PM CDT Hermelindo Butler MD LAB BLOOD ORDER ELANA Final Result Performing Organization Address [facility] Co de Phone Number [facility] [place] [address] * (ABNORMAL) Comprehensive metabolic panel (08/23/2024 6:04 PM CDT) [facility] Sodium 146(H) 135 - 145 mmol/L Potassium, pl 3.8 3.3 - 4.9 mmol/L [facility] Chloride 107 97 - 110 mmol/L [facility] CO2 26 22 - 32 mmol/L [facility] Anion gap 13 2 - 15 mmol/L [facility] BUN 58(H) 6 - 25 mg/dL [facility] Creatinine 3.37(H) 0.80 - 1.30 mg/dL [facility] Glucose 89 70 - 199 mg/dL [facility] Comment: Interpretive Data Fasting glucose >/= 126 [...] interpretive data was last revised 2022. Calcium 8.9 8.5 - 10.3 mg/dL [facility] Bilirubin, total 0.4 0.1 - 1.2 mg/dL [facility] Protein, pl 6.2(L) 6.5 - 8.5 g/dL [facility] Albumin 4.0 3.5 - 5.0 g/dL [facility] Alk phos 68 40 - 130 Units/L [facility] ALT 16 7 - 55 Units/L [facility] AST 12 10 - 50 Units/L [facility] Blood 08/23/2024 6:04 PM CDT 08/23/2024 6:13 PM CDT Hermelindo Butler MD LAB BLOOD ORDER ELANA Final Result [facility] One [facility] [place] [address] * SCAN - LABS (08/20/2024) us Provider Scanning Final Result * SCAN - LABS (08/10/2024) us Provider Scanning Final Result * US Kidney Complete (08/06/2024 2:42 PM HEAD PIECE ASSEMBLER) Anatomical Region Laterality Modality Kidney N/A Ultrasound 08/06/2024 3:27 PM HEAD PIECE ASSEMBLER Impressions 08/06/2024 3:27 PM HEAD PIECE ASSEMBLER 1. Mild nephromegaly with mild to moderate hydronephrosis bilaterally. 2. Incomplete bladder emptying with post void bladder residual of 397 mL. Electronically signed by: Dylan Tinajero M.D. Narrative 08/06/2024 3:27 PM HEAD PIECE ASSEMBLER EXAMINATION: COMPLETE RENAL SONOGRAM HISTORY: Rising creatinine. [...] mL. Electronically signed by: Dylan Tinajero M.D. Hermelidno Butler MD IMG US PROCEDUR ES Final Result * (ABNORMAL) Urinalysis reflex to microscopic (08/06/2024 9:19 AM HEAD PIECE ASSEMBLER) Color, ur Straw Yellow Clarity, ur Clear Clear [facility] Specific gravity, ur 1.013 1.003 - 1.030 CERNER [facility] pH, urine 5.5 [facility] Comment: Interpretive Data U rine pH is affected by diet, medications, systemic acid-base disturbances, and renal tubular function. pH may affect urinary stone formation. For example, urine pH below 6.0 may help reduce the tendency for calcium phosphate stones and pH greater than 6.0 may reduce the tendency for uric acid stone formation. Source: [facility] Current Interpretive Data was last revised on 2017 Protein, ur ql Negative Negative [facility] Glucose, ur ql Negative Negative [facility] Ketones, ur Negative Negative [facility] Bilirubin, ur Negative Negative [facility] Blood, ur 3+(A) Negative [facility] Urobilinogen, ur <2.0 <2.0 mg/dL [facility] Nitrite, ur Negative Negative [facility] Leukocyte esterase, ur Trace(A) [facility] UA reflex comment Reflex to microscopic UA will be performed. [facility] Urine 08/06/2024 9:19 AM HEAD PIECE ASSEMBLER 08/06/2024 9:19 AM HEAD PIECE ASSEMBLER Lyndsey Fagan LAB URINE ORDERABLES Angeles l Result Performing Organization Address [facility] de Phone Number [facility] [place] [address] * Protein / creatinine ratio, urine, random (08/06/2024 9:19 AM HEAD PIECE ASSEMBLER) Protein, ur, quant 7.9 mg/dL Comment: Interpretive Data No reference range established. Current interpretive data was last revised 2018. Creatinine Ur 77.4 mg/dL [facility] Comment: Interpretive Data No reference range established. Current interpretive data was last revised 2018. Protein/creatinin e ratio 102.1 0.0 - 180.0 mg/g CR [facility] Urine 08/06/2024 9:19 AM HEAD PIECE ASSEMBLER 08/06/2024 9:41 AM HEAD PIECE ASSEMBLER Lyndsey Fagan INSPECTOR OF DREDGING LAB URINE ORDERABLES Angeles l Result Performing Organization Address [facility] de Phone Number [facility] Department [place] [address] * (ABNORMAL) Urinalysis, microscopic only (08/06/2024 9:19 AM HEAD PIECE ASSEMBLER) WBC, ur 6-10(A) 0 - 5 /HPF RBC, ur 21-50(A) 0 - 2 /HPF [facility] Bacteria, ur Trace(A) [facility] Mucous, ur Present(A) [facility] Urine 08/06/2024 9:19 AM HEAD PIECE ASSEMBLER 08/06/2024 9:19 AM HEAD PIECE ASSEMBLER Lyndsey Fagan INSPECTOR OF DREDGING LAB URINE ORDERABLES Angeles l Result Performing Organization Address City/[facility]/ZIP Co de Phone Number [place] [facility] Department [place] [address] * (ABNORMAL) eGFR (08/06/2024 7:43 AM HEAD PIECE ASSEMBLER) Pathologist [facility] eGFR 31(L) >=60 mL/min/1. 73 m2 Comment: [...] last reviewed 2021. Blood 08/06/2024 7:43 AM HEAD PIECE ASSEMBLER 08/06/2024 7:52 AM HEAD PIECE ASSEMBLER us Hermelindo Butler MD LAB BLOOD ORDER ELANA Final Result [facility] [place] [address] * (ABNORMAL) Differential, auto (08/06/2024 7:43 AM HEAD PIECE ASSEMBLER) Neutrophil abs 5.4 1.5 - 6.5 K/cumm Comment:Testing performed by : [facility], [address] [place] [phone] Lymphocyte abs 0.8 0.8 - 3.3 K/cumm [facility] Comment:Testing performed by : [facility], [address] [place] [phone] Monocyte abs 0.5 0.2 - 0.8 K/cumm [facility] Comment:Testing performed by : [facility], [address] [place] [phone] Eosinophil abs 0.7(H) 0.0 - 0.5 K/cumm [facility] Comment:Testing performed by : [facility], [address] [place] [phone] Basophil abs 0.0 0.0 - 0.1 K/cumm [facility] Comment:Testing performed by : [facility], [address] [place] [phone] Neutrophil pct 72.4 % [facility] Comment: Interpretive Data Percent cell count reference ranges are not reported, since discordance with absolute values may lead to misinterpretation of CBC data. Current Interpretive Data was last revised on 2017. Testing performed by: [facility], [address] [place] [phone] Lymphocyte pct 10.4 % [facility] Comment: Interpretive Data Percent cell count reference ranges are not reported, since discordance with absolute values may lead to misinterpretation of CBC data. Current Interpretive Data was last revised on 2017. Testing performed by: [facility], [address] [place] [phone] Monocyte pct 7.3 % [facility] Comment: Interpretive Data Percent cell count reference ranges are not reported, since discordance with absolute values may lead to misinterpretation of CBC data. Current Interpretive Data was last revised on 2017. Testing performed by: [facility], [address] [place] [phone] Eosinophil pct 9.4 % [facility] Comment: Interpretive Data Percent cell count reference ranges are not reported, since discordance with absolute values may lead to misinterpretation of CBC data. Current Interpretive Data was last revised on 2017. Testing performed by: [facility], [address] [place] [phone] Basophil pct 0.5 % [facility] Comment: Interpretive Data Percent cell count reference ranges are not reported, since discordance with absolute values may lead to misinterpretation of CBC data. Current Interpretive Data was last revised on 2017. Testing performed by: [facility], [address] [place] [phone] Blood 08/06/2024 7:43 AM HEAD PIECE ASSEMBLER 08/06/2024 7:51 AM HEAD PIECE ASSEMBLER us Hermelindo Butler MD LAB BLOOD ORDER ELANA Final Result [place] [facility] [place] [address] * (ABNORMAL) CBC with auto differential (08/06/2024 7:43 AM HEAD PIECE ASSEMBLER) WBC 7.5 3.8 - 9.9 K/cumm Comment:Testing performed by : [facility], [address] [place] [address] Hgb 13.7 13.0 - 17.5 g/dL [place] [facility] Comment:Testing performed by : [facility], [address] [place] [address] Hct 40.6 38.9 - 50.3 % [place] [facility] Comment:Testing performed by : [facility], [address] [place] [phone] Plt 169 150 - 400 K/cumm CERFRANK [facility] Comment:Testing performed by : [facility], [address] [place] [address] MPV 7.5 6.8 - 10.4 fL [place] [facility] Comment:Testing performed by : [facility], [address] [place] [address] RBC 4.37 4.30 - 5.80 M/cumm [place] [facility] Comment:Testing performed by : [facility], [address] [place], [place] [phone] MCV 92.7 81.3 - 96.4 fL [facility] Comment:Testing performed by : [facility], [address] [place], [place] [phone] MCH 31.3 27.1 - 33.3 pg [facility] Comment:Testing performed by : [facility], [address] [place], [place] [phone] MCHC 33.8 32.3 - 35.7 g/dL MT [facility] Comment:Testing performed by : [facility], [address] [place], [place] [phone] RDW CV 16.5(H) 11.1 - 14.9 % [facility] Comment:Testing performed by : [facility], [address] [place], [place] [phone] NRBC abs 0.00 0.00 - 0.01 K/cumm [facility] Comment:Testing performed by : [facility], [address] [place], [place] [phone] Blood 08/06/2024 7:43 AM HEAD PIECE ASSEMBLER 08/06/2024 7:51 AM HEAD PIECE ASSEMBLER Hermelindo Butler MD LAB BLOOD ORDER ELANA Final Result [facility] One [facility] [place] [address] * (ABNORMAL) PSA diagnostic (08/06/2024 7:43 AM HEAD PIECE ASSEMBLER) PSA-Total 6.28(H) <=6.20 ng/mL Comment: Interpretive Data [...] last revised 21. Blood 08/06/2024 7:43 AM HEAD PIECE ASSEMBLER 08/06/2024 7:52 AM HEAD PIECE ASSEMBLER Hermelindo Butler MD LAB BLOOD ORDER ELANA Final Result Performing Organization Address City/[facility] Co de Phone Number [facility] [place] [address] * Lactate dehydrogenase (LD) (08/06/2024 7:43 AM HEAD PIECE ASSEMBLER) Lactate dehydrogenase (LDH) 161 100 - 250 Units/L Blood 08/06/2024 7:43 AM HEAD PIECE ASSEMBLER 08/06/2024 7:52 AM HEAD PIECE ASSEMBLER Hermelindo Butler MD LAB BLOOD ORDER ELANA Final Result Performing Organization Address [facility] de Phone Number [facility] [place] [address] * (ABNORMAL) Lipid panel (08/06/2024 7:43 AM HEAD PIECE ASSEMBLER) Cholesterol 128 30 - 199 mg/dL Comment: [...] revised on 2018. Triglycerides 149 <=149 mg/dL [facility] Comment: Interpretive Data Ages < or = [...] revised on 2018. HDL 38(L) >=40 mg/dL [facility] Comment: Interpretive Data Ages < or = [...] on 2018. LDL, calculated 64 <=129 mg/dL [facility] Comment: Interpretive Data Ages < or = [...] 3. Luis Nielsen et al. NATALIIA Cardiol. 2020 October 07;5(5):540-548. doi: 10.1001/jamacardio.2020.0013 Current Interpretive Data was last revised on 2024. Non-HDL Cholesterol 90 mg/dL [facility] Comment: Interpretive Data Ages < or = [...] last revised on 2018. Chol/HDL ratio 3 [facility] Blood 08/06/2024 7:43 AM HEAD PIECE ASSEMBLER 08/06/2024 7:52 AM HEAD PIECE ASSEMBLER us Hermelindo Butler MD LAB BLOOD ORDER ELANA Final Result [facility] One [facility] [place] [address] * (ABNORMAL) Comprehensive metabolic panel (08/06/2024 7:43 AM HEAD PIECE ASSEMBLER) Sodium 145 135 - 145 mmol/L Potassium, pl 4.2 3.3 - 4.9 mmol/L [facility] Chloride 108 97 - 110 mmol/L [facility] CO2 30 22 - 32 mmol/L [facility] Anion gap 7 2 - 15 mmol/L [facility] BUN 51(H) 6 - 25 mg/dL [facility] Creatinine 2.21(H) 0.80 - 1.30 mg/dL [facility] Glucose 113 70 - 199 mg/dL [facility] Comment: Interpretive Data Fasting glucose >/= 126 [...] 2022. Calcium 9.2 8.5 - 10.3 mg/dL [facility] Bilirubin, total 0.5 0.1 - 1.2 mg/dL [facility] Protein, pl 6.2(L) 6.5 - 8.5 g/dL [facility] Albumin 4.1 3.5 - 5.0 g/dL [facility] Alk phos 61 40 - 130 Units/L [facility] ALT 15 7 - 55 Units/L [facility] AST 16 10 - 50 Units/L [facility] Blood 08/06/2024 7:4 3 AM HEAD PIECE ASSEMBLER 08/06/2024 7:52 AM HEAD PIECE ASSEMBLER Hermelindo Butler MD LAB BLOOD ORDER ELANA Final Result Performing Organization Address [facility] de Phone Number [facility] [place] [address] * aPTT (08/03/2024 9:21 AM HEAD PIECE ASSEMBLER) Pathologist [facility] aPTT 31 28 - 38 sec Comment: Interpretive Data Heparin therapeutic range: 66.0 - 100.0 seconds. Range based on correlation with therapeutic heparin activity range of 0.3 - 0.7 Units/mL. Current interpretive data was last revised on 2023. Blood 08/03/2024 9:21 AM HEAD PIECE ASSEMBLER 08/03/2024 9:47 AM HEAD PIECE ASSEMBLER Hermelindo Butler MD LAB BLOOD ORDER ELANA Final Result Performing Organization Address City/[facility] Co de Phone Number [facility] [place] [address] * Protime-INR (08/03/2024 9:21 AM HEAD PIECE ASSEMBLER) Pathologist [facility] PT 11.5 9.7 - 13.0 sec INR 1.06 0.90 - 1.20 [facility] Comment: Interpretive data Oral anticoagulant therapeutic ranges: Venous thromboembolism prophylaxis or treatment: 2.0-3.0 CARDIOLOGY Standard range: 2.0-3.0 High-intensity range: 2.5-3.5 Refer to indication-specific guidelines for appropriate target ranges for prosthetic heart valve replacement. Current interpretive data was last revised on 2019. Blood 08/03/2024 9:21 AM HEAD PIECE ASSEMBLER 08/03/2024 9:47 AM HEAD PIECE ASSEMBLER Hermelindo Butler MD LAB BLOOD ORDER ELANA Final Result Performing Organization Address City/[facility] Co de Phone Number [facility] [place] [address] * Immunotyping, serum with interpretation (08/03/2024 7:40 AM HEAD PIECE ASSEMBLER) Immunosubtraction Please see comment Comment: NO PARAPROTEIN DETECTED Reviewed and signed by Hermelindo Mcnulty MD 08/04/2024 Blood 08/03/2024 7:40 AM HEAD PIECE ASSEMBLER 08/03/2024 8:24 AM HEAD PIECE ASSEMBLER Hermelindo Butler MD LAB BLOOD ORDER ELANA Final Result Performing Organization Address [facility] de Phone Number [facility] [place] [address] * (ABNORMAL) eGFR (08/03/2024 7:40 AM HEAD PIECE ASSEMBLER) eGFR 37(L) >=60 mL/min/1. 73 m2 Comment: [...] last reviewed 2021. Blood 08/03/2024 7:40 AM HEAD PIECE ASSEMBLER 08/03/2024 7:49 AM HEAD PIECE ASSEMBLER Hermelindo Butler MD LAB BLOOD ORDER ELANA Final Result [facility] One [facility] [place] [address] * (ABNORMAL) Differential, auto (08/03/2024 7:40 AM HEAD PIECE ASSEMBLER) Neutrophil abs 5.6 1.5 - 6.5 K/cumm Comment:Testing performed by : [facility], [address] [place] [phone] Lymphocyte abs 0.9 0.8 - 3.3 K/cumm [facility] Comment:Testing performed by : [facility], [address] [place] [phone] Monocyte abs 0.6 0.2 - 0.8 K/cumm [facility] Comment:Testing performed by : [facility], [address] [place] [phone] Eosinophil abs 0.8(H) 0.0 - 0.5 K/cumm [facility] Comment:Testing performed by : [facility], [address] [place] [phone] Basophil abs 0.0 0.0 - 0.1 K/cumm [facility] Comment:Testing performed by : [facility], [address] [place] [phone] Neutrophil pct 70.4 % [facility] Comment: Interpretive Data Percent cell count reference ranges are not reported, since discordance with absolute values may lead to misinterpretation of CBC data. Current Interpretive Data was last revised on 2017. Testing performed by: [facility], [address] [place] [phone] Lymphocyte pct 11.2 % [place] [facility] Comment: Interpretive Data Percent cell count reference ranges are not reported, since discordance with absolute values may lead to misinterpretation of CBC data. Current Interpretive Data was last revised on 2017. Testing performed by: [facility], [address] [place] [phone] Monocyte pct 7.7 % [place] [facility] Comment: Interpretive Data Percent cell count reference ranges are not reported, since discordance with absolute values may lead to misinterpretation of CBC data. Current Interpretive Data was last revised on 2017. Testing performed by: [facility], [address] [place] [phone] Eosinophil pct 10.1 % MT [facility] Comment: Interpretive Data Percent cell count reference ranges are not reported, since discordance with absolute values may lead to misinterpretation of CBC data. Current Interpretive Data was last revised on 2017. Testing performed by: [facility], [address] [place] [phone] Basophil pct 0.6 % [facility] Comment: Interpretive Data Percent cell count reference ranges are not reported, since discordance with absolute values may lead to misinterpretation of CBC data. Current Interpretive Data was last revised on 2017. Testing performed by: [facility], [address] [place] [phone] Blood 08/03/2024 7:40 AM HEAD PIECE ASSEMBLER 08/03/2024 7:47 AM HEAD PIECE ASSEMBLER us Hermelindo Butler MD LAB BLOOD ORDER ELANA Final Result [facility] [place] [address] * (ABNORMAL) Immunoglobulin free light chains (08/03/2024 7:40 AM HEAD PIECE ASSEMBLER) Kathryn/Lambda ratio [facility] See Comment 0.26 - 1.65 Comment: Unable to calculate exact result. Interpretive Data The Binding Site FreeLite assay procedure was used. Results from different manufacturers or methods may not be comparable. Serial testing should be performed using the same methods and instrumentation. Current Interpretive Data was last revised on 2023. Kathryn free light chain [facility] <0.06(L) 0.33 - [...] revised on 2023. Blood 08/03/2024 7:40 AM HEAD PIECE ASSEMBLER 08/03/2024 8:24 AM HEAD PIECE ASSEMBLER Hermelindo Butler MD LAB BLOOD ORDER ELANA Final Result [place] [facility] [place] [address] * (ABNORMAL) CBC with auto differential (08/03/2024 7:40 AM HEAD PIECE ASSEMBLER) WBC 7.9 3.8 - 9.9 K/cumm Comment:Testing performed by : [facility], [address] [place] [phone] Hgb 13.7 13.0 - 17.5 g/dL [place] [facility] Comment:Testing performed by : [facility], [address] [place] [phone] Hct 41.5 38.9 - 50.3 % [facility] Comment:Testing performed by : [facility], [address] [place] [phone] Plt 163 150 - 400 K/cumm [place] [facility] Comment:Testing performed by : [facility], [address] [place] [address] MPV 7.8 6.8 - 10.4 fL CERFRANK SU[facility]Z Comment:Testing performed by : [facility], [address] [place] [address] RBC 4.50 4.30 - 5.80 M/cumm [facility] Comment:Testing performed by : [facility], [address] [place] [address] MCV 92.1 81.3 - 96.4 fL [place] [facility] Comment:Testing performed by : [facility], [address] [place], [place] [phone] MCH 30.4 27.1 - 33.3 pg MT [facility] Comment:Testing performed by : [facility], [address] [place] [address] MCHC 33.0 32.3 - 35.7 g/dL [facility] Comment:Testing performed by : [facility], [address] [place] [address] RDW CV 16.6(H) 11.1 - 14.9 % MT [facility] Comment:Testing performed by : [facility], [address] [place] [address] NRBC abs 0.00 0.00 - 0.01 K/cumm MT [facility] Comment:Testing performed by : [facility], [address] [place] [address] Blood 08/03/2024 7:40 AM HEAD PIECE ASSEMBLER 08/03/2024 7:47 AM HEAD PIECE ASSEMBLER us Hermelindo Butler MD LAB BLOOD ORDER ELANA Final Result [place] [facility] [place] [address] * (ABNORMAL) Protein electrophoresis with reflex, serum with interpretation (08/03/2024 7:40 AM HEAD PIECE ASSEMBLER) [facility] Protein, sr 5.7(L) 6.2 - 8.2 g/dL Albumin 3.8 3.2 - 5.0 g/dL [facility] Alpha-1 globulin 0.3 0.2 - 0.4 g/dL [facility] Alpha-2 globulin 0.6 0.5 - 1.0 g/dL [facility] Beta-1 globulin 0.4 0.3 - 0.6 g/dL [facility] Beta-2 globulin 0.3 0.2 - 0.6 g/dL [facility] Gamma globulin 0.2(L) 0.5 - 1.7 g/dL [facility] SPEP interp Please see comment [facility] Comment: No apparent monoclonal peak Decreased gamma globulins Electrophoretic pattern appears similar to previous sample 07/14/24 *See immunotyping for further information Reviewed and signed by Hermelindo Mcnulty MD 08/04/2024 Blood 08/03/2024 7:40 AM HEAD PIECE ASSEMBLER 08/03/2024 8:24 AM HEAD PIECE ASSEMBLER Hermelindo Butler MD LAB BLOOD ORDER ELANA Final Result Performing Organization Address City/[facility]/ZIP Co de Phone Number [facility] [place] [address] * Magnesium (08/03/2024 7:40 AM HEAD PIECE ASSEMBLER) [facility] Magnesium 2.2 1.4 - 2.5 mg/dL Blood 08/03/2024 7:40 AM HEAD PIECE ASSEMBLER 08/03/2024 9:36 AM HEAD PIECE ASSEMBLER Hermelindo Butler MD LAB BLOOD ORDER ELANA Final Result [facility] [place] [address] * Lactate dehydrogenase (LD) (08/03/2024 7:40 AM HEAD PIECE ASSEMBLER) Lactate dehydrogenase (LDH) 172 100 - 250 Units/L Blood 08/03/2024 7:40 AM HEAD PIECE ASSEMBLER 08/03/2024 7:49 AM HEAD PIECE ASSEMBLER Hermelindo Butler MD LAB BLOOD ORDER ELANA Final Result Performing Organization Address [facility] [place] [address] * (ABNORMAL) Hemoglobin A1c (08/03/2024 7:40 AM HEAD PIECE ASSEMBLER) Pathologist [facility] Hgb A1C 5.8(H) 4.0 - 5.6 % Estimated Average Glucose 120 mg/dL [facility] Comment: The ADA recommends reporting an estimated Average Glucose (eAG) with all Hemoglobin A1c results using the equation derived from a study of 507 normal and diabetic adults. Minority populations were underrepresented and children were not included. (Diabetes Care 2020; 43(S1): S66-S76). The eAG is not equivalent to a fasting glucose. Blood 08/03/2024 7:40 AM HEAD PIECE ASSEMBLER 08/03/2024 7:49 AM HEAD PIECE ASSEMBLER Lyndsey Fagan INSPECTOR OF DREDGING LAB BLOOD ORDERABLES [place] l Result Performing Organization Address [facility] [place] [address] * Gamma GT (08/03/2024 7:40 AM HEAD PIECE ASSEMBLER) [facility] GGT 23 10 - 50 Units/L Blood 08/03/2024 7:40 AM HEAD PIECE ASSEMBLER 08/03/2024 9:36 AM HEAD PIECE ASSEMBLER Hermelindo Butler MD LAB BLOOD ORDER ELANA Final Result Performing Organization Address [facility] de Phone Number [facility] [place] [address] * (ABNORMAL) IgA (08/03/2024 7:40 AM HEAD PIECE ASSEMBLER) Pathologist [facility] Immunoglobulin A <50(L) 70 - 400 mg/dL Blood 08/03/2024 7:40 AM HEAD PIECE ASSEMBLER 08/03/2024 8:09 AM HEAD PIECE ASSEMBLER Hermelindo Butler MD LAB BLOOD ORDER ELANA Final Result Performing Organization Address City/[facility] Co de Phone Number [facility] [place] [address] * (ABNORMAL) IgM (08/03/2024 7:40 AM HEAD PIECE ASSEMBLER) [facility] Immunoglobulin M <25(L) 40 - 230 mg/dL Blood 08/03/2024 7:40 AM HEAD PIECE ASSEMBLER 08/03/2024 8:09 AM HEAD PIECE ASSEMBLER Hermelindo Butler MD LAB BLOOD ORDER ELANA Final Result Performing Organization Address [facility] Co de Phone Number [facility] [place] [address] * (ABNORMAL) IgG (08/03/2024 7:40 AM HEAD PIECE ASSEMBLER) [facility] Immunoglobulin G <300(L) 700 - 1,600 mg/dL Blood 08/03/2024 7:40 AM HEAD PIECE ASSEMBLER 08/03/2024 8:09 AM HEAD PIECE ASSEMBLER Hermelindo Butler MD LAB BLOOD ORDER ELANA Final Result Performing Organization Address City/[facility] Co de Phone Number [facility] [place] [address] * (ABNORMAL) Comprehensive metabolic panel (08/03/2024 7:40 AM HEAD PIECE ASSEMBLER) [facility] Sodium 141 135 - 145 mmol/L Potassium, pl 4.0 3.3 - 4.9 mmol/L [facility] Chloride 104 97 - 110 mmol/L [facility] CO2 30 22 - 32 mmol/L [facility] Anion gap 7 2 - 15 mmol/L [facility] BUN 47(H) 6 - 25 mg/dL [facility] Creatinine 1.92(H) 0.80 - 1.30 mg/dL [facility] Glucose 116 70 - 199 mg/dL [facility] Comment: Interpretive Data Fasting glucose >/= 126 [...] 2022. Calcium 9.2 8.5 - 10.3 mg/dL [facility] Bilirubin, total 0.7 0.1 - 1.2 mg/dL [facility] Protein, pl 6.2(L) 6.5 - 8.5 g/dL [facility] Albumin 3.9 3.5 - 5.0 g/dL [facility] Alk phos 63 40 - 130 Units/L [facility] ALT 15 7 - 55 Units/L [facility] AST 17 10 - 50 Units/L [facility] Blood 08/03/2024 7:40 AM HEAD PIECE ASSEMBLER 08/03/2024 7:49 AM HEAD PIECE ASSEMBLER us Hermelindo Butler MD LAB BLOOD ORDER ELANA Final Result [facility] [place] [address] * (ABNORMAL) Urinalysis reflex to microscopic and culture Urine, clean voided (08/03/2024 7:30 AM HEAD PIECE ASSEMBLER) Color, ur Straw Yellow Clarity, ur Clear Clear [facility] Specific gravity, ur 1.012 1.003 - 1.030 [facility] pH, urine 5.5 [facility] Comment: Interpretive Data U rine pH is affected by diet, medications, systemic acid-base disturbances, and renal tubular function. pH may affect urinary stone formation. For example, urine pH below 6.0 may help reduce the tendency for calcium phosphate stones and pH greater than 6.0 may reduce the tendency for uric acid stone formation. Source: [facility] Current Interpretive Data was last revised on 2017 Protein, ur ql Negative Negative [facility] Glucose, ur ql Negative Negative [facility] Ketones, ur Negative Negative [facility] Bilirubin, ur Negative Negative [facility] Blood, ur 2+(A) Negative [facility] Urobilinogen, ur <2.0 <2.0 mg/dL [facility] Nitrite, ur Negative Negative [facility] Leukocyte esterase, ur Negative [facility] UA reflex comment Reflex to microscopic UA will be performed. [facility] Urine, clean voided 08/03/2024 7:30 AM HEAD PIECE ASSEMBLER 08/03/2024 7:30 AM HEAD PIECE ASSEMBLER us Lyndsey Fagan NP LAB MICROBIOLOGY - GENERA L ORDERABLES Final Result [facility] [place] [address] * (ABNORMAL) Urinalysis, microscopic only (08/03/2024 7:30 AM HEAD PIECE ASSEMBLER) WBC, ur 6-10(A) 0 - 5 /HPF RBC, ur 11-20(A) 0 - 2 /HPF [facility] Epithelial cells, squamous, ur 1-5 0 - 5 /HPF [facility] Bacteria, ur Trace(A) [facility] Culture Reflex Comment Reflex conditions for urine culture (WBC >10) not met. [facility] Urine, clean voided 08/03/2024 7:30 AM HEAD PIECE ASSEMBLER 08/03/2024 7:30 AM HEAD PIECE ASSEMBLER us Lyndsey Fagan NP LAB URINE ORDERABLES [place] l Result Performing Organization Address [facility] Co de Phone Number [facility] [place] [address] * Urine culture Urine, clean voided (08/03/2024 7:30 AM HEAD PIECE ASSEMBLER) Pathologist [facility] Report Final Report: No growth Urine, clean voided 08/03/2024 7:30 AM HEAD PIECE ASSEMBLER 08/03/2024 9:59 AM HEAD PIECE ASSEMBLER Narrative [facility] - 08/04/2024 11:14 AM HEAD PIECE ASSEMBLER Testing performed by [facility] Microbiology Laboratory ([phone]) Hermelindo Butler MD LAB MICROBIOLOG Y - GENERAL ORDERABLES Final Result Performing Organization Address [facility] Co de Phone Number [facility] [place] [address] * Immunotyping, serum with interpretation (07/13/2024 7:40 AM HEAD PIECE ASSEMBLER) Pathologist [facility] Immunosubtraction Please see comment Comment: NO PARAPROTEIN DETECTED Reviewed and signed by Rufino Huff MD, PhD 07/14/2024 Blood 07/13/2024 7:40 AM HEAD PIECE ASSEMBLER 07/13/2024 8:42 AM HEAD PIECE ASSEMBLER Hermelindo Butler MD LAB BLOOD ORDER ELANA Final Result Performing Organization Address City/[facility]/ZIP Co de Phone Number [facility] [place] [address] * (ABNORMAL) eGFR (07/13/2024 7:40 AM HEAD PIECE ASSEMBLER) Pathologist [facility] eGFR 57(L) >=60 mL/min/1. 73 m2 [...] last reviewed 2021. Blood 07/13/2024 7:40 AM HEAD PIECE ASSEMBLER 07/13/2024 7:47 AM HEAD PIECE ASSEMBLER us Hermelindo Butler MD LAB BLOOD ORDER ELANA Final Result [facility] [place] [address] * Differential, auto (07/13/2024 7:40 AM HEAD PIECE ASSEMBLER) Neutrophil abs 5.4 1.5 - 6.5 K/cumm Comment:Testing performed by : [facility], [address] [place] [phone] Lymphocyte abs 0.9 0.8 - 3.3 K/cumm MT [facility] Comment:Testing performed by : [facility], [address] [place] [phone] Monocyte abs 0.5 0.2 - 0.8 K/cumm MT [facility] Comment:Testing performed by : [facility], [address] [place], [place] [phone] Eosinophil abs 0.5 0.0 - 0.5 K/cumm MT [facility] Comment:Testing performed by : [facility], [address] [place] [phone] Basophil abs 0.0 0.0 - 0.1 K/cumm [place] [facility] Comment:Testing performed by : [facility], [address] [place] [phone] Neutrophil pct 73.6 % [facility] Comment: Interpretive Data Percent cell count reference ranges are not reported, since discordance with absolute values may lead to misinterpretation of CBC data. Current Interpretive Data was last revised on 2017. Testing performed by: [facility], [address] [place] [phone] Lymphocyte pct 12.0 % [facility] Comment: Interpretive Data Percent cell count reference ranges are not reported, since discordance with absolute values may lead to misinterpretation of CBC data. Current Interpretive Data was last revised on 2017. Testing performed by: [facility], [address] [place] [phone] Monocyte pct 7.4 % [facility] Comment: Interpretive Data Percent cell count reference ranges are not reported, since discordance with absolute values may lead to misinterpretation of CBC data. Current Interpretive Data was last revised on 2017. Testing performed by: [facility], [address] [place] [phone] Eosinophil pct 6.5 % [facility] Comment: Interpretive Data Percent cell count reference ranges are not reported, since discordance with absolute values may lead to misinterpretation of CBC data. Current Interpretive Data was last revised on 2017. Testing performed by: [facility], [address] [place] [phone] Basophil pct 0.5 % [facility] Comment: Interpretive Data Percent cell count reference ranges are not reported, since discordance with absolute values may lead to misinterpretation of CBC data. Current Interpretive Data was last revised on 2017. Testing performed by: [facility], [address] [place] [phone] Blood 07/13/2024 7:40 AM HEAD PIECE ASSEMBLER 07/13/2024 7:46 AM HEAD PIECE ASSEMBLER Hermelindo Butler MD LAB BLOOD ORDER ELANA Final Result MT [facility] [place] [address] * (ABNORMAL) Immunoglobulin free light chains (07/13/2024 7:40 AM HEAD PIECE ASSEMBLER) Pathologist [facility] Kathryn/Lambda ratio [facility] See Comment 0.26 - 1.65 Comment: Unable to calculate exact result. Interpretive Data The Binding Site FreeLite assay procedure was used. Results from different manufacturers or methods may not be comparable. Serial testing should be performed using the same methods and instrumentation. Current Interpretive Data was last revised on 2023. Kathryn free light chain [facility] <0.06(L) 0.33 - 1.94 mg/dL [facility] Comment: Interpretive Data The Binding Site FreeLite assay procedure was used. Results from different manufacturers or methods may not be comparable. Serial testing should be performed using the same methods and instrumentation. Current Interpretive Data was last revised on 2023. Lambda free light chain [facility] <0.13(L) 0.57 - 2.63 mg/dL [facility] Comment: Interpretive Data The Binding Site FreeLite assay procedure was used. Results from different manufacturers or methods may not be comparable. Serial testing should be performed using the same methods and instrumentation. Current Interpretive Data was last revised on 2023. Blood 07/13/2024 7:40 AM HEAD PIECE ASSEMBLER 07/13/2024 8:42 AM HEAD PIECE ASSEMBLER Hermelindo Butler MD LAB BLOOD ORDER ELANA Final Result MT [facility] [place] [address] * (ABNORMAL) CBC with auto differential (07/13/2024 7:40 AM HEAD PIECE ASSEMBLER) Pathologist [facility] WBC 7.4 3.8 - 9.9 K/cumm Comment:Testing performed by : [facility], [address] [place] [phone] Hgb 14.4 13.0 - 17.5 g/dL [facility] Comment:Testing performed by : [facility], [address] [place] [address] Hct 44.1 38.9 - 50.3 % [facility] Comment:Testing performed by : [facility], [address] [place] [address] Plt 174 150 - 400 K/cumm [facility] Comment:Testing performed by : [facility], [address] [place] [address] MPV 7.5 6.8 - 10.4 fL [facility] Comment:Testing performed by : [facility], [address] [place], [place] [phone] RBC 4.75 4.30 - 5.80 M/cumm [facility] Comment:Testing performed by : [facility], [address] [place] [address] MCV 92.8 81.3 - 96.4 fL [facility] Comment:Testing performed by : [facility], [address] [place] [address] MCH 30.2 27.1 - 33.3 pg [facility] Comment:Testing performed by : [facility], [address] [place] [address] MCHC 32.6 32.3 - 35.7 g/dL [facility] Comment:Testing performed by : [facility], [address] [place] [address] RDW CV 16.2(H) 11.1 - 14.9 % [facility] Comment:Testing performed by : [facility], [address] [place] [address] NRBC abs 0.00 0.00 - 0.01 K/cumm [facility] Comment:Testing performed by : [facility], [address] [place] [address] Blood 07/13/2024 7:40 AM HEAD PIECE ASSEMBLER 07/13/2024 7:46 AM HEAD PIECE ASSEMBLER Hermelindo Butler MD LAB BLOOD ORDER ELANA Final Result Performing Organization Address City/[facility] Co de Phone Number MT [facility] Department [place] [address] * (ABNORMAL) Protein electrophoresis with reflex, serum with interpretation (07/13/2024 7:40 AM HEAD PIECE ASSEMBLER) Pathologist [facility] Protein, sr 5.7(L) 6.2 - 8.2 g/dL Albumin 3.7 3.2 - 5.0 g/dL [facility] Alpha-1 globulin 0.3 0.2 - 0.4 g/dL [facility] Alpha-2 globulin 0.6 0.5 - 1.0 g/dL [facility] Beta-1 globulin 0.4 0.3 - 0.6 g/dL [facility] Beta-2 globulin 0.3 0.2 - 0.6 g/dL [facility] Gamma globulin 0.3(L) 0.5 - 1.7 g/dL [facility] SPEP interp Please see comment [facility] Comment: No apparent monoclonal peak Decreased gamma globulins Electrophoretic pattern appears similar to previous sample 06/23/24 See immunotyping for further information Reviewed and signed by Rufino Huff MD, PhD 07/14/2024 Blood 07/13/2024 7:40 AM HEAD PIECE ASSEMBLER 07/13/2024 8:42 AM HEAD PIECE ASSEMBLER Hermelindo Butler MD LAB BLOOD ORDER ELANA Final Result MT [facility] [place] [address] * Magnesium (07/13/2024 7:40 AM HEAD PIECE ASSEMBLER) Pathologist [facility] Magnesium 2.2 1.4 - 2.5 mg/dL Blood 07/13/2024 7:40 AM HEAD PIECE ASSEMBLER 07/13/2024 7:47 AM HEAD PIECE ASSEMBLER us Hermelindo Butler MD LAB BLOOD ORDER ELANA Final Result Performing Organization Address City/[facility] Co de Phone Number [facility] [place] [address] * Lactate dehydrogenase (LD) (07/13/2024 7:40 AM HEAD PIECE ASSEMBLER) Lactate dehydrogenase (LDH) 152 100 - 250 Units/L Blood 07/13/2024 7:40 AM HEAD PIECE ASSEMBLER 07/13/2024 7:47 AM HEAD PIECE ASSEMBLER Hermelindo Butler MD LAB BLOOD ORDER ELANA Final Result Performing Organization Address [facility] de Phone Number [facility] [place] [address] * Gamma GT (07/13/2024 7:40 AM HEAD PIECE ASSEMBLER) Pathologist [facility] GGT 27 10 - 50 Units/L Blood 07/13/2024 7:40 AM HEAD PIECE ASSEMBLER 07/13/2024 7:47 AM HEAD PIECE ASSEMBLER Hermelindo Butler MD LAB BLOOD ORDER ELANA Final Result Performing Organization Address City/[facility] Co de Phone Number [facility] [place] [address] * (ABNORMAL) IgA (07/13/2024 7:40 AM HEAD PIECE ASSEMBLER) Immunoglobulin A <50(L) 70 - 400 mg/dL Blood 07/13/2024 7:40 AM HEAD PIECE ASSEMBLER 07/13/2024 7:59 AM HEAD PIECE ASSEMBLER us Hermelindo Butler MD LAB BLOOD ORDER ELANA Final Result Performing Organization Address City/[facility] Co de Phone Number [facility] [place] [address] * (ABNORMAL) IgM (07/13/2024 7:40 AM HEAD PIECE ASSEMBLER) Pathologist [facility] Immunoglobulin M <25(L) 40 - 230 mg/dL Blood 07/13/2024 7:40 AM HEAD PIECE ASSEMBLER 07/13/2024 7:59 AM HEAD PIECE ASSEMBLER Hermelindo Butler MD LAB BLOOD ORDER ELANA Final Result Performing Organization Address City/[facility]/ZIP Co de Phone Number [facility] [place] [address] * (ABNORMAL) IgG (07/13/2024 7:40 AM HEAD PIECE ASSEMBLER) [facility] Immunoglobulin G <300(L) 700 - 1,600 mg/dL Blood 07/13/2024 7:40 AM HEAD PIECE ASSEMBLER 07/13/2024 7:59 AM HEAD PIECE ASSEMBLER Hermelindo Butler MD LAB BLOOD ORDER ELANA Final Result Performing Organization Address City/[facility] de Phone Number [facility] [place] [address] * (ABNORMAL) Comprehensive metabolic panel (07/13/2024 7:40 AM HEAD PIECE ASSEMBLER) [facility] Sodium 144 135 - 145 mmol/L Potassium, pl 4.2 3.3 - 4.9 mmol/L [facility] Chloride 107 97 - 110 mmol/L [facility] CO2 33(H) 22 - 32 mmol/L [facility] Anion gap 4 2 - 15 mmol/L [facility] BUN 29(H) 6 - 25 mg/dL [facility] Creatinine 1.34(H) 0.80 - 1.30 mg/dL [facility] Glucose 125 70 - 199 mg/dL [facility] Comment: Interpretive Data Fasting glucose >/= 126 [...] 2022. Calcium 9.4 8.5 - 10.3 mg/dL [facility] Bilirubin, total 0.7 0.1 - 1.2 mg/dL C[facility] Protein, pl 6.2(L) 6.5 - 8.5 g/dL [facility] Albumin 4.1 3.5 - 5.0 g/dL [facility]] Alk phos 65 40 - 130 Units/L [facility]] ALT 18 7 - 55 Units/L [facility]] AST 16 10 - 50 Units/L [facility] Blood 07/13/2024 7:40 AM HEAD PIECE ASSEMBLER 07/13/2024 7:47 AM HEAD PIECE ASSEMBLER Hermelindo Butler MD LAB BLOOD ORDER ELANA Final Result MT [facility] [place] [address] * aPTT (07/13/2024 7:24 AM HEAD PIECE ASSEMBLER) aPTT 28 28 - 38 sec Comment: Interpretive Data Heparin therapeutic range: 66.0 - 100.0 seconds. Range based on correlation with therapeutic heparin activity range of 0.3 - 0.7 Units/mL. Current interpretive data was last revised on 2023. Blood 07/13/2024 7:24 AM HEAD PIECE ASSEMBLER 07/13/2024 7:59 AM HEAD PIECE ASSEMBLER Hermelindo Butler MD LAB BLOOD ORDER ELANA Final Result MT [facility] [place] [address] * Protime-INR (07/13/2024 7:24 AM HEAD PIECE ASSEMBLER) Pathologist [facility] PT 11.5 9.7 - 13.0 sec INR 1.06 0.90 - 1.20 [facility] Comment: Interpretive data Oral anticoagulant therapeutic ranges: Venous thromboembolism prophylaxis or treatment: 2.0-3.0 CARDIOLOGY Standard range: 2.0-3.0 High-intensity range: 2.5-3.5 Refer to indication-specific guidelines for appropriate target ranges for prosthetic heart valve replacement. Current interpretive data was last revised on 2019. Blood 07/13/2024 7:24 AM HEAD PIECE ASSEMBLER 07/13/2024 7:59 AM HEAD PIECE ASSEMBLER Hermelindo Butler MD LAB BLOOD ORDER ELANA Final Result Performing Organization Address City/[facility]/ZIP Co de Phone Number [facility] [place] [address] * Immunotyping, serum (06/22/2024 7:20 AM HEAD PIECE ASSEMBLER) [facility] Immunosubtraction Please see comment Comment: NO PARAPROTEIN DETECTED Reviewed and signed by Fernando Nunez MD, PhD 06/23/2024 Blood 06/22/2024 7:20 AM HEAD PIECE ASSEMBLER 06/22/2024 10:03 AM HEAD PIECE ASSEMBLER Hermelindo Butler MD LAB BLOOD ORDER ELANA Final Result [facility] [place] [address] * eGFR (06/22/2024 7:20 AM HEAD PIECE ASSEMBLER) [facility] eGFR 66 >=60 mL/min/1. 73 m2 Comment: [...] last reviewed 2021. Blood 06/22/2024 7:20 AM HEAD PIECE ASSEMBLER 06/22/2024 8:12 AM HEAD PIECE ASSEMBLER us Hermelindo Butler MD LAB BLOOD ORDER ELANA Final Result [facility] [place] [address] * Differential, auto (06/22/2024 7:20 AM HEAD PIECE ASSEMBLER) Neutrophil abs 5.4 1.5 - 6.5 K/cumm Comment:Testing performed by : [facility], [address] [place] [phone] Lymphocyte abs 0.9 0.8 - 3.3 K/cumm MT [facility] Comment:Testing performed by : [facility], [address] [place], [place] [phone] Monocyte abs 0.5 0.2 - 0.8 K/cumm MT [facility] Comment:Testing performed by : [facility], [address] [place] [phone] Eosinophil abs 0.2 0.0 - 0.5 K/cumm [facility] Comment:Testing performed by : [facility], [address] [place] [phone] Basophil abs 0.0 0.0 - 0.1 K/cumm MT [facility] Comment:Testing performed by : [facility], [address] [place] [phone] Neutrophil pct 75.7 % [facility] Comment: Interpretive Data Percent cell count reference ranges are not reported, since discordance with absolute values may lead to misinterpretation of CBC data. Current Interpretive Data was last revised on 2017. Testing performed by: [facility], [address] [place] [phone] Lymphocyte pct 13.1 % [facility] Comment: Interpretive Data Percent cell count reference ranges are not reported, since discordance with absolute values may lead to misinterpretation of CBC data. Current Interpretive Data was last revised on 2017. Testing performed by: [facility], [address] [place] [phone] Monocyte pct 7.1 % [facility] Comment: Interpretive Data Percent cell count reference ranges are not reported, since discordance with absolute values may lead to misinterpretation of CBC data. Current Interpretive Data was last revised on 2017. Testing performed by: [facility], [address] [place] [phone] Eosinophil pct 3.5 % [facility] Comment: Interpretive Data Percent cell count reference ranges are not reported, since discordance with absolute values may lead to misinterpretation of CBC data. Current Interpretive Data was last revised on 2017. Testing performed by: [facility], [address] [place] [phone] Basophil pct 0.6 % [facility] Comment: Interpretive Data Percent cell count reference ranges are not reported, since discordance with absolute values may lead to misinterpretation of CBC data. Current Interpretive Data was last revised on 2017. Testing performed by: [facility], [address] [place] [phone] Blood 06/22/2024 7:20 AM HEAD PIECE ASSEMBLER 06/22/2024 8:08 AM HEAD PIECE ASSEMBLER Hermelindo Butler MD LAB BLOOD ORDER ELANA Final Result MT [facility] [place] [address] * (ABNORMAL) Immunoglobulin free light chains (06/22/2024 7:20 AM HEAD PIECE ASSEMBLER) Pathologist [facility] Kathryn/Lambda ratio [facility] See Comment 0.26 - 1.65 Comment: Unable to calculate exact result. Interpretive Data The Binding Site FreeLite assay procedure was used. Results from different manufacturers or methods may not be comparable. Serial testing should be performed using the same methods and instrumentation. Current Interpretive Data was last revised on 2023. Kathryn free light chain BJH <0.06(L) 0.33 - 1.94 mg/dL [facility] Comment: Interpretive Data The Binding Site FreeLite assay procedure was used. Results from different manufacturers or methods may not be comparable. Serial testing should be performed using the same methods and instrumentation. Current Interpretive Data was last revised on 2023. Lambda free light chain BJH <0.13(L) 0.57 - 2.63 mg/dL [facility] Comment: Interpretive Data The Binding Site FreeLite assay procedure was used. Results from different manufacturers or methods may not be comparable. Serial testing should be performed using the same methods and instrumentation. Current Interpretive Data was last revised on 2023. Blood 06/22/2024 7:20 AM HEAD PIECE ASSEMBLER 06/22/2024 9:53 AM HEAD PIECE ASSEMBLER Hermelindo Butler MD LAB BLOOD ORDER ELANA Final Result MT SUAREZ [facility] [place] [address] * (ABNORMAL) CBC with auto differential (06/22/2024 7:20 AM HEAD PIECE ASSEMBLER) [facility] WBC 7.1 3.8 - 9.9 K/cumm Comment:Testing performed by : [facility], [address] [place] [id number] Hgb 14.6 13.0 - 17.5 g/dL MT BJ Comment:Testing performed by : [facility], [address] [place] [address] Hct 45.6 38.9 - 50.3 % CERNER BJ Comment:Testing performed by : [facility], [address] [place], [place] [id number] Plt 196 150 - 400 K/cumm CERNER BJ Comment:Testing performed by : [facility], [address] [place] [address] MPV 8.3 6.8 - 10.4 fL CERNER BJ Comment:Testing performed by : [facility], [address] [place], [place] [phone] RBC 4.88 4.30 - 5.80 M/cumm CERNER BJ Comment:Testing performed by : [facility], [address] [place], [place] [phone] MCV 93.5 81.3 - 96.4 fL CERNER BJ Comment:Testing performed by : [facility], [address] [place] [address] MCH 29.9 27.1 - 33.3 pg CERNER BJ Comment:Testing performed by : [facility], [address] [place] [address] MCHC 31.9(L) 32.3 - 35.7 g/dL CERNER BJ Comment:Testing performed by : [facility], [address] [place] [address] RDW CV 16.0(H) 11.1 - 14.9 % CERNER BJ Comment:Testing performed by : [facility], [address] [place] [address] NRBC abs 0.20(H) 0.00 - 0.01 K/cumm CERNER BJ Comment:Testing performed by : [facility], [address] [place] [address] Blood 06/22/2024 7:20 AM HEAD PIECE ASSEMBLER 06/22/2024 8:08 AM HEAD PIECE ASSEMBLER Hermelindo Butler MD LAB BLOOD ORDER ELANA Final Result Performing Organization Address City/[facility] Co de Phone Number MT [facility] [place] [address] * aPTT (06/22/2024 7:20 AM HEAD PIECE ASSEMBLER) aPTT 29 28 - 38 sec Comment: Interpretive Data Heparin therapeutic range: 66.0 - 100.0 seconds. Range based on correlation with therapeutic heparin activity range of 0.3 - 0.7 Units/mL. Current interpretive data was last revised on 2023. Blood 06/22/2024 7:20 AM HEAD PIECE ASSEMBLER 06/22/2024 9:50 AM HEAD PIECE ASSEMBLER Hermelindo Butler MD LAB BLOOD ORDER ELANA Final Result Performing Organization Address [facility] de Phone Number [facility] [place] [address] * Protime-INR (06/22/2024 7:20 AM HEAD PIECE ASSEMBLER) PT 10.9 9.7 - 13.0 sec INR 1.01 0.90 - 1.20 [facility] Comment: Interpretive data Oral anticoagulant therapeutic ranges: Venous thromboembolism prophylaxis or treatment: 2.0-3.0 CARDIOLOGY Standard range: 2.0-3.0 High-intensity range: 2.5-3.5 Refer to indication-specific guidelines for appropriate target ranges for prosthetic heart valve replacement. Current interpretive data was last revised on 2019. Blood 06/22/2024 7:20 AM HEAD PIECE ASSEMBLER 06/22/2024 9:50 AM HEAD PIECE ASSEMBLER Hermelindo Butler MD LAB BLOOD ORDER ELANA Final Result Performing Organization Address [facility] Co de Phone Number [facility] [place] [address] * (ABNORMAL) Protein electrophoresis with reflex, serum (06/22/2024 7:20 AM HEAD PIECE ASSEMBLER) Pathologist [facility] Protein, sr 5.9(L) 6.2 - 8.2 g/dL Albumin 3.7 3.2 - 5.0 g/dL [facility] Alpha-1 globulin 0.3 0.2 - 0.4 g/dL [facility] Alpha-2 globulin 0.7 0.5 - 1.0 g/dL [facility] Beta-1 globulin 0.5 0.3 - 0.6 g/dL [facility] Beta-2 globulin 0.3 0.2 - 0.6 g/dL [facility] Gamma globulin 0.4(L) 0.5 - 1.7 g/dL [facility] SPEP interp Please see comment [facility] Comment: No apparent monoclonal peak Decreased gamma globulins Electrophoretic pattern appears similar to previous sample 05-19-24 See immunotyping for further information Reviewed and signed by Fernando Nunez MD, PhD 06/23/2024 Immunotyping See Immunotyping Results [facility] Blood 06/22/2024 7:20 AM HEAD PIECE ASSEMBLER 06/22/2024 9:55 AM HEAD PIECE ASSEMBLER Hermelindo Butler MD LAB BLOOD ORDER ELANA Final Result Performing Organization Address City/[facility] Co de Phone Number [facility] [place] [address] * Magnesium (06/22/2024 7:20 AM HEAD PIECE ASSEMBLER) [facility] Magnesium 2.2 1.4 - 2.5 mg/dL Blood 06/22/2024 7:20 AM HEAD PIECE ASSEMBLER 06/22/2024 8:12 AM HEAD PIECE ASSEMBLER Hermelindo Butler MD LAB BLOOD ORDER ELANA Final Result Performing Organization Address City/[facility]/ZIP Co de Phone Number [facility] [place] [address] * Lactate dehydrogenase (LD) (06/22/2024 7:20 AM HEAD PIECE ASSEMBLER) Pathologist [facility] Lactate dehydrogenase (LDH) 157 100 - 250 Units/L Blood 06/22/2024 7:20 AM HEAD PIECE ASSEMBLER 06/22/2024 8:12 AM HEAD PIECE ASSEMBLER Hermelindo Butler MD LAB BLOOD ORDER ELANA Final Result Performing Organization Address City/[facility] Co de Phone Number [facility] [place] [address] * Gamma GT (06/22/2024 7:20 AM HEAD PIECE ASSEMBLER) [facility] GGT 30 10 - 50 Units/L Blood 06/22/2024 7:20 AM HEAD PIECE ASSEMBLER 06/22/2024 8:12 AM HEAD PIECE ASSEMBLER Hermelindo Butler MD LAB BLOOD ORDER ELANA Final Result Performing Organization Address [facility] Co de Phone Number [facility] [place] [address] * (ABNORMAL) IgA (06/22/2024 7:20 AM HEAD PIECE ASSEMBLER) Pathologist [facility] Immunoglobulin A <50(L) 70 - 400 mg/dL Blood 06/22/2024 7:20 AM HEAD PIECE ASSEMBLER 06/22/2024 9:49 AM HEAD PIECE ASSEMBLER Hermelindo Butler MD LAB BLOOD ORDER ELANA Final Result Performing Organization Address City/[facility] [place] [address] * (ABNORMAL) IgM (06/22/2024 7:20 AM HEAD PIECE ASSEMBLER) Pathologist [facility] Immunoglobulin M <25(L) 40 - 230 mg/dL Blood 06/22/2024 7:20 AM HEAD PIECE ASSEMBLER 06/22/2024 9:49 AM HEAD PIECE ASSEMBLER Hermelindo Butler MD LAB BLOOD ORDER ELANA Final Result Performing Organization Address City/State/[facility] Co de Phone Number [facility] [place] [address] * (ABNORMAL) IgG (06/22/2024 7:20 AM HEAD PIECE ASSEMBLER) Pathologist [facility] Immunoglobulin G 423(L) 700 - 1,600 mg/dL Blood 06/22/2024 7:20 AM HEAD PIECE ASSEMBLER 06/22/2024 9:49 AM HEAD PIECE ASSEMBLER Hermelindo Butler MD LAB BLOOD ORDER ELANA Final Result Performing Organization Address [facility] de Phone Number [facility] [place] [address] * (ABNORMAL) Comprehensive metabolic panel (06/22/2024 7:20 AM HEAD PIECE ASSEMBLER) [facility] Sodium 141 135 - 145 mmol/L Potassium, pl 4.1 3.3 - 4.9 mmol/L [facility] Chloride 104 97 - 110 mmol/L [facility] CO2 31 22 - 32 mmol/L [facility] Anion gap 6 2 - 15 mmol/L [facility] BUN 24 6 - 25 mg/dL [facility] Creatinine 1.18 0.80 - 1.30 mg/dL [facility] Glucose 111 70 - 199 mg/dL [facility] Comment: Interpretive Data Fasting glucose >/= 126 [...] classification and Diagnosis of Diabetes Diabetes Care 2022; 46: S19-S40. Current interpretive data was last revised 2022. Calcium 9.5 8.5 - 10.3 mg/dL [facility] Bilirubin, total 0.7 0.1 - 1.2 mg/dL [facility] Protein, pl 6.3(L) 6.5 - 8.5 g/dL [facility] Albumin 3.8 3.5 - 5.0 g/dL [facility] Alk phos 63 40 - 130 Units/L [facility] ALT 18 7 - 55 Units/L [facility] AST 20 10 - 50 Units/L [facility] Blood 06/22/2024 7:20 AM HEAD PIECE ASSEMBLER 06/22/2024 8:12 AM HEAD PIECE ASSEMBLER Hermelindo Butler MD LAB BLOOD ORDER ELANA Final Result Performing Organization Address [facility]/ZIP Co de Phone Number [facility] [place] [address] * Hepatitis C antibody (10/16/2021 9:50 AM CDT) Hep C Ab Nonreactive Nonreactive [facility] Comment:Antibodies to HCV no t detected. Does NOT exclude the possibility of recent exposure to HCV. Blood 10/16/2021 9:50 AM CDT 10/16/2021 11:22 AM CDT Hermelindo dupree MD LAB MICROBIOLOGY - GENERAL ORDERABLES Edited Result - Final Performing Organization Address City/[facility]/ZIP Co de Phone Number [facility] Department of [employer] [place], [place] [id number] from Last 3 Months or Most Recently Relevant to Health Maintenance Insurance [employer] [address] MEDICARE [employer] SENIOR SUPPLEMENT MEDICARE [employer] SENIOR SUPPLEMENT Advance Directives For more information, please contact: [phone] Documents on File Type Date Recorded 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 ADVANCE DIRECTIVE 11/29/2017 11:05 AM FOX R OF ELEVATORS INSPECTOR ADVANCE DIRECTIVE 11/12/2017 3:59 PM POWER OF ELEVATORS INSPECTOR * Full Code (Latest Code Status on File) Date Activated Date Inactivated Comments 08/23/2024 11:41 PM 08/26/2024 9:04 PM * Full Code Date Activated Date Inactivated Comments 09/08/2023 8:42 AM 09/09/2023 4:45 AM * Full Code Date Activated Date Inactivated Comments 10/28/2021 5:30 PM 11/01/2021 3:39 PM * Full Code Date Activated Date Inactivated Comments 05/30/2021 2:28 PM 05/31/2021 2:39 PM * Full Code Date Activated Date Inactivated Comments 05/30/2021 9:21 AM 05/30/2021 1:44 PM Care Teams Accounts Clerk Relationship Specialty Start Date End Date Jatin Gamble MD [address] [place] [address] PCP - General 10/07/16 Hermelindo Butler MD [address] [place] [address] Medical Oncologist/Hematologi Medical Oncology 12/02/17 Roberto Rojo MD [address] [place] [address] [facility] 12/02/17 Jatin Gamble MD [address] [place] [address] Referring Physician Internal Medicine 12/02/17 Lyndsey Fagan NP [address] [place] [address] Nurse Practitioner Medical Oncology 08/03/20 Erlin Servin MD [address] [place] [address] Consulting Physician Otolaryngology 10/04/22 [place] [address] [place] [address] Consulting Physician Urology 05/28/23
--- OUTSIDE RECORDS SUMMARY | 2024-08-30 08:25 | XMS_ITS | Encounter Summary ---
Author Organization [facility] Healthcare Address [address] [place] [address] Care Team Providers Care Retail Marketing Manager Name Role Phone Jatin Gamble MD Primary Care Provider [phone] Hermelindo Butler MD Unavailable Roberto Rojo MD Unavailable [phone] Jatin Gamble MD Unavailable Garry Dukes MD Unavailable [phone] Lyndsey Fagan NP Unavailable Erlin Servin MD Unavailable Julian Valdez MD Unavailable [phone] Encounter Details Date Type Department Care Team (Late st Contact Info) Description 04/29/2022 Community Orders [facility] EpicCare Link Jatin Gamble MD [address] [place] [address] Elevated prostate specific antigen (PSA) (Primary Dx) Social History Tobacco Use Types Packs/Day Years Used Date Smoking Tobacco: Never Smokeless Tobacco: Never Alcohol Use Standard Drinks/Week Comments No 0 (1 standard drink = 0.6 oz pur e alcohol) Sex and Gender Information Value Date Recorded Sex Assigned at Not on file 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 Gender Identity Not on file Sexual Orientation [...] documented as of this encounter Care Teams Retail Marketing Manager Relationship Specialty Start Date End Date Jatin Gamble MD [address] [place] [address] PCP - General 10/07/16 Hermelindo Butler MD [address] [place] [address] [facility] 12/02/17 Roberto Rojo MD [address] [place] [address] [facility] 12/02/17 Jatin Gamble MD [address] [place] [address] Referring Physician Internal Medicine 12/02/17 Garry Dukes MD [address] [place] [address] Referring Physician Urology 12/02/17 05/27/23 Lyndsey Fagan NP [address] [place] [address] Nurse Practitioner Medical Oncology 08/03/20 Erlin Servin MD [address] [place] [address] Consulting Physician Otolaryngology 10/04/22 [place] [address] [place] [address] Consulting Physician Urology 05/28/23 documented as of this encounter
--- OUTSIDE RECORDS SUMMARY | 2024-08-30 08:25 | XMS_ITS | Referral Summary ---
Author Organization [facility] Address [address] [place] [address] Care Team Providers Care Mini Shifter Name Role Phone Jatin Gamble MD Primary Care Provider Hermelindo Butler MD Unavailable Roberto Rojo MD Unavailable Jatin Gamble MD Unavailable Lyndsey Fagan NP Unavailable Erlin Servin MD Unavailable Julian Valdez MD Unavailable [phone] Encounters Date Type Department Care Team Description 08/27/2024 Documentation Nephrology Ani Anne LCSW 08/27/2024 Orders Only [facility] Bone Marrow Transplant [address] [phone] Hermelindo Hill MD Multiple myeloma not having achieved remission (HCC) (Primary Dx); JOHN (acute kidney injury) 08/23/2024 11:13 PM CDT - 08/26/2024 4:50 PM CDT Hospital Encounter [address] [phone] Hermelindo Hill MD Qapaja, Thabet J.M., MD JOHN (acute kidney injury) (Primary Dx) Discharge Disposition: Discharge to home or self care 08/25/2024 6:50 AM CDT Ancillary Procedure [facility] Vascular Lab IP 1 [facility] [address] [place] [address] Arrived 08/23/2024 7:10 PM CDT - 08/23/2024 11:59 PM CDT Hospital Encounter [facility] Radiology 1 [facility] [place] [address] Discharge Disposition: Discharge to home or self care 08/23/2024 Orders Only [facility] [address] [place] [phone] Hermelindo Hill MD 08/23/2024 Orders Only [facility] Bone Marrow Transplant [address] [place] [phone] Hermelindo Hill MD Multiple myeloma, remission status unspecified (HCC) (Primary Dx) 08/23/2024 5:24 PM CDT - 08/23/2024 11:59 PM CDT Hospital Encounter [facility] [address] [place] [address] Hermelindo Hill MD Elevated serum creatinine (Primary Dx); Multiple myeloma, remission status unspecified (HCC) Discharge Disposition: Discharge to home or self care 08/20/2024 Orders Only [facility] Scanning, Provider 08/10/2024 Orders Only [facility] Scanning, Provider 08/06/2024 Telephone [facility] Bone Marrow Transplant [address] [place] [phone] Lyndsey Fagan NP 08/06/2024 Orders Only [facility] Bone Marrow Transplant [address] [place] [phone] Lyndsey Fagan NP Multiple myeloma, remission status unspecified (HCC) (Primary Dx) 08/06/2024 1:45 PM COATING LINE WORKER Clinical Support [facility] - Lab Collection [facility] [address] [place] [address] 08/06/2024 1:00 PM COATING LINE WORKER - 08/06/2024 11:59 PM COATING LINE WORKER Hospital Encounter [facility] Radiology 1 [place] [address] Multiple myeloma, remission status unspecified (HCC) Discharge Disposition: Discharge to home or self care 08/06/2024 Orders Only [facility] Bone Marrow Transplant [address] [place] [phone] Lyndsey Fagan NP JOHN (acute kidney injury) (Primary Dx) 08/06/2024 Orders Only [facility] Bone Marrow Transplant [address] [place] [phone] Hermelindo Hill MD Multiple myeloma, remission status unspecified (HCC) (Primary Dx) 08/06/2024 7:15 AM COATING LINE WORKER Clinical Support [facility] - Lab Collection [address] [place] [address] Multiple myeloma in relapse (HCC) (Primary Dx); Multiple myeloma, remission status unspecified (HCC); JOHN (acute kidney injury) 08/06/2024 8:00 AM COATING LINE WORKER Infusion [facility] Infusion [address] [place] [address] Multiple myeloma not having achieved remission (HCC) (Primary Dx); Hypogammaglobuline hakeem 08/03/2024 Orders Only [facility] Bone Marrow Transplant [address] [place] [phone] Hermelindo Hill MD 08/03/2024 Orders Only [facility] Bone Marrow Transplant [address] [place] [phone] Hermelindo Hill MD 08/03/2024 Orders Only [facility] Bone Marrow Transplant [address] [place] [phone] Hermelindo Hill MD 08/03/2024 9:30 AM COATING LINE WORKER Infusion [facility] Infusion [address] [facility] [address] [place] [address] Multiple myeloma in relapse (HCC) (Primary Dx); Multiple myeloma in remission (HCC) 08/03/2024 7:30 AM COATING LINE WORKER Clinical Support [facility] - Lab Collection [address] [place] [address] Multiple myeloma in remission (HCC); Multiple myeloma, remission status unspecified (HCC); Multiple myeloma in relapse (HCC) 08/03/2024 8:30 AM COATING LINE WORKER Office Visit [facility] Bone Marrow Transplant [address] [place] [phone] Hermelindo Hill MD Multiple myeloma, remission status unspecified (HCC) (Primary Dx); Multiple myeloma in remission (HCC); Multiple myeloma in relapse (HCC) 08/02/2024 Telephone [facility] Bone Marrow Transplant [address] [place] [phone] Lyndsey Fagan NP 07/30/2024 Telephone [facility] Bone Marrow Transplant [address] [place] [phone] Hermelindo Hill MD 07/27/2024 Telephone [facility] Bone Marrow Transplant [address] [place] [phone] Hermelindo Hill MD 07/26/2024 Orders Only [facility] Bone Marrow Transplant [address] [place] [phone] Hermelindo Hill MD 07/26/2024 Orders Only [facility] Bone Marrow Transplant [address] [place] [phone] Hermelindo Hill MD 07/26/2024 Telephone [facility] Bone Marrow Transplant [address] [place] [phone] Margaret Kay RMA Medical Question/Miscellan eous 07/13/2024 Telephone [facility] Bone Marrow Transplant [address] [place] [phone] Fadumo Tobar RN 07/13/2024 10:00 AM COATING LINE WORKER Infusion [facility] Infusion [address] [place] [address] Multiple myeloma in relapse (HCC) (Primary Dx); Multiple myeloma in remission (HCC) 07/13/2024 8:00 AM COATING LINE WORKER Clinical Support [facility] - Lab Collection [address] [facility] Floor 6 [place] [address] Multiple myeloma in remission (HCC); Multiple myeloma in relapse (HCC); Multiple myeloma, remission status unspecified (HCC) 07/13/2024 9:00 AM COATING LINE WORKER Office Visit [facility] Bone Marrow Transplant [facility] 6 [place] [phone] Hermelindo Hill MD Multiple myeloma, remission status unspecified (HCC) (Primary Dx); Multiple myeloma in remission (HCC); Hypogammaglobuline hakeem 06/22/2024 Orders Only [facility] Bone Marrow Transplant [facility] [address] [phone] Hermelindo Hill MD 06/22/2024 Orders Only [facility] Bone Marrow Transplant [facility] [address] [phone] Hermelindo Hill MD Multiple myeloma in remission (HCC) (Primary Dx); Multiple myeloma in relapse (HCC) 06/22/2024 8:30 AM COATING LINE WORKER Infusion [facility] [address] [facility] Floor [address] [place] [address] Multiple myeloma, remission status unspecified (HCC) (Primary Dx); Multiple myeloma in remission (HCC); Multiple myeloma in relapse (HCC) 06/22/2024 7:00 AM COATING LINE WORKER Clinical Support [facility] - Lab Collection [facility] Floor [address] [place] [address] Multiple myeloma, remission status unspecified (HCC); Multiple myeloma in relapse (HCC) 06/22/2024 8:00 AM COATING LINE WORKER Office Visit [facility] Bone Marrow Transplant [facility] Floor [address] [place] [phone] Hermelindo Hill MD Multiple myeloma in relapse (HCC) (Primary Dx); Multiple myeloma, remission status unspecified (HCC); Hypogammaglobuline hakeem; Obesity, morbid (HCC) 06/14/2024 Telephone [facility] Bone Marrow Transplant [address] [facility] 6 [place] [phone] Margaret Kay RMA Reschedule from Last 3 Months Allergies Active [...] a day for 7 days 14 tablet 08/03/19 25 025 Active Problems Patient Care Coordination No te Formatting of this note is d ifferent from the original. BMT Inpatient Care Coordination Overview Diagnosis [place] [address] Treatment Plan Clinical Trial [id number] Ramesh Reason for Admission JOHN Transplant/IEC Planning [...] Medical Assistants Post-Discharge Follow-Up Living Situation/Distance from [place], [place] (45 min) Caregiver Self, Lab/Transfusion Frequency Phone: Fax: Venous Access & Care implanted vascular device Local Oncologist Contact Phone: Fax: Post-Discharge Office Visit (H30) [facility] 08/31 Miscellaneous Notes: Problem Noted Date Diagnosed [...] is a risk of orbital injury and MACHINIST CLASS B injury which could result in blindness or [...] this. Assessment & Plan (07/09/2022 7:42 PM COATING LINE WORKER): I talked with him quite a bit [...] weeks. Assessment & Plan (05/26/2022 4:16 PM COATING LINE WORKER): He does have pretty significant sinusitis and [...] day. Assessment & Plan (05/26/2022 4:17 PM COATING LINE WORKER): It is very possible that his cough could be due to sinusitis also. Hopefully that will continue to improve as we treat. He understands. Immunocompromised 11/13/2021 Multiple myeloma not having achieved remission 0 10/28/2021 Cancer Staging:Clinical stage from 10/16/2021:RISS Stage II(Skkk-2-viidkstbkrctn (mg/L): 3.7, Albumin (g/dL): 4.2, ISS: Stage [...] and Dexamethasone in June 2021 Clinical trial [id number] initiated on 10/29/21; C46D1 08/03/24. BMT following [...] he got a TTE on 10/19 at [place] however unclear why not currently in the system - May need to repeat TTE prior to treatment if results unavailable - Continue OI ppx with acyclovir 400mg BID - Begin trial [id number], a Bispecific Antibody Targeting BCMA treatment - [...] he got a TTE on 10/19 at [place] however unclear why not currently in the system - May need to repeat TTE prior to treatment if results unavailable - Continue OI ppx with acyclovir 400mg BID - Begin trial [id number], a Bispecific Antibody Targeting BCMA treatment - [...] BID Assessment & Plan (05/31/2021 10:51 AM COATING LINE WORKER): Continue home pepcid, asx Renal mass 05/30/2021 Assessment & Plan (05/31/2021 10:51 AM COATING LINE WORKER): Admitted for observation after L renal mass [...] 07/17/2023 Assessment & Plan (05/31/2021 10:52 AM COATING LINE WORKER): Follows with oncology on daratumumab monotherapy -counts [...] blood in urine Follow up pathology from [facility] high-grade papillary urothelial carcinoma (grade 2) --follow up with urology after dc Keep plt >30K 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,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,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 11/20-passing clots, bleeding around cath, will flush q4h, if no improvement, will likely need CBI 11/20-repeat BK virus pending --Platelet transfusion reaction with itching Workup sent 11/18--neg Premed with benadryl and tylenol prior to transfusions --JHON Likely 2/2 urosepsis IVF, renal dose medications [...] urology to keep placed x1 week 11/12-Beckham placed-danw blood in urine Follow up pathology from [id number]-bxg-vftmvedm high-grade papillary urothelial carcinoma (grade 2) --follow [...] supplementation Assessment & Plan (05/31/2021 10:51 AM COATING LINE WORKER): Stable on home losartan, nebivolol, triamterene-HCTZ Secondary [...] on file Legal Sex 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 COATING LINE WORKER Gender Identity Not on file Sexual Orientation [...] 08/23/2024 11:15 PM CDT Plan of Treatment Not on file Medical Devices Implanted Type Area Radiator Tester Device Identifier Shelf Expiration Date Model / [...] Read Routine (OP Routine) 08/06/2024 2:42 PM COATING LINE WORKER Multiple myeloma, remission status unspecified (HCC) URINALYSIS, MICROSCOPIC ONLY Routine 08/06/2024 9:19 AM COATING LINE WORKER JOHN (acute kidney injury) PROTEIN / CREATININE RATIO, URINE, RANDOM Routine 08/06/2024 9:19 AM COATING LINE WORKER JOHN (acute kidney injury) URINALYSIS AND REFLEX TO MICROSCOPIC Routine 08/06/2024 9:19 AM COATING LINE WORKER JOHN (acute kidney injury) EGFR Routine 08/06/2024 7:43 AM COATING LINE WORKER Multiple myeloma, remission status unspecified (HCC) DIFFERENTIAL AUTO Routine 08/06/2024 7:4 3 AM COATING LINE WORKER Multiple myeloma, remission status unspecified (HCC) LACTATE DEHYDROGENASE Routine 08/06/2024 7:43 AM COATING LINE WORKER Multiple myeloma, remission status unspecified (HCC) CBC WITH AUTO DIFFERENTIAL Routine 08/06/2024 7:43 AM COATING LINE WORKER Multiple myeloma, remission status unspecified (HCC) COMPREHENSIVE METABOLIC PANEL Routine 08/06/2024 7:43 AM COATING LINE WORKER Multiple myeloma, remission status unspecified (HCC) LIPID PANEL Routine 08/06/2024 7:43 AM COATING LINE WORKER Multiple myeloma, remission status unspecified (HCC) PSA DIAGNOSTIC Routine 08/06/2024 7:43 AM COATING LINE WORKER Multiple myeloma, remission status unspecified (HCC) PROTIME-INR STAT 08/03/2024 9:21 AM COATING LINE WORKER Multiple myeloma in relapse (HCC) APTT STAT 08/03/2024 9:21 AM COATING LINE WORKER Multiple myeloma in relapse (HCC) MAGNESIUM STAT 08/03/2024 7:40 AM COATING LINE WORKER Multiple myeloma in relapse (HCC) GAMMA GT STAT 08/03/2024 7:40 AM COATING LINE WORKER Multiple myeloma in relapse (HCC) EGFR Routine 08/03/2024 7:40 AM COATING LINE WORKER Multiple myeloma, remission status unspecified (HCC) DIFFERENTIAL AUTO Routine 08/03/2024 7:4 0 AM COATING LINE WORKER Multiple myeloma, remission status unspecified (HCC) CBC WITH AUTO DIFFERENTIAL Routine 08/03/2024 7:40 AM COATING LINE WORKER Multiple myeloma, remission status unspecified (HCC) COMPREHENSIVE METABOLIC PANEL Routine 08/03/2024 7:40 AM COATING LINE WORKER Multiple myeloma, remission status unspecified (HCC) IGA Routine 08/03/2024 7:40 AM COATING LINE WORKER Multiple myeloma, remission status unspecified (HCC) IGG Routine 08/03/2024 7:40 AM COATING LINE WORKER Multiple myeloma, remission status unspecified (HCC) IGM Routine 08/03/2024 7:40 AM COATING LINE WORKER Multiple myeloma, remission status unspecified (HCC) IMMUNOGLOBULIN FREE LIGHT CHAINS Routine 08/03/2024 7:40 AM COATING LINE WORKER Multiple myeloma, remission status unspecified (HCC) LACTATE DEHYDROGENASE Routine 08/03/2024 7:40 AM COATING LINE WORKER Multiple myeloma, remission status unspecified (HCC) PROTEIN ELECTROPHORESIS, WITH REFLEX, SERUM Routine 08/03/2024 7:40 AM COATING LINE WORKER Multiple myeloma, remission status unspecified (HCC) IMMUNOTYPING Routine 08/03/2024 7:40 AM COATING LINE WORKER Multiple myeloma, remission status unspecified (HCC) HEMOGLOBIN A1C Routine 08/03/2024 7:40 AM COATING LINE WORKER Multiple myeloma, remission status unspecified (HCC) URINALYSIS, MICROSCOPIC ONLY Routine 08/03/2024 7:30 AM COATING LINE WORKER Multiple myeloma, remission status unspecified (HCC) URINE CULTURE Routine 08/03/2024 7:30 AM COATING LINE WORKER URINALYSIS AND REFLEX TO MICROSCOPIC AND CULTURE Routine 08/03/2024 7:30 AM COATING LINE WORKER Multiple myeloma, remission status unspecified (HCC) EGFR STAT 07/13/2024 7:40 AM COATING LINE WORKER Multiple myeloma in relapse (HCC) DIFFERENTIAL AUTO STAT 07/13/2024 7:4 0 AM COATING LINE WORKER Multiple myeloma in relapse (HCC) IGA Routine 07/13/2024 7:40 AM COATING LINE WORKER Multiple myeloma, remission status unspecified (HCC) IGG Routine 07/13/2024 7:40 AM COATING LINE WORKER Multiple myeloma, remission status unspecified (HCC) IGM Routine 07/13/2024 7:40 AM COATING LINE WORKER Multiple myeloma, remission status unspecified (HCC) IMMUNOGLOBULIN FREE LIGHT CHAINS Routine 07/13/2024 7:40 AM COATING LINE WORKER Multiple myeloma, remission status unspecified (HCC) PROTEIN ELECTROPHORESIS, WITH REFLEX, SERUM Routine 07/13/2024 7:40 AM COATING LINE WORKER Multiple myeloma, remission status unspecified (HCC) IMMUNOTYPING Routine 07/13/2024 7:40 AM COATING LINE WORKER Multiple myeloma, remission status unspecified (HCC) LACTATE DEHYDROGENASE Routine 07/13/2024 7:40 AM COATING LINE WORKER Multiple myeloma in relapse (HCC) GAMMA GT STAT 07/13/2024 7:40 AM COATING LINE WORKER Multiple myeloma in relapse (HCC) MAGNESIUM STAT 07/13/2024 7:40 AM COATING LINE WORKER Multiple myeloma in relapse (HCC) COMPREHENSIVE METABOLIC PANEL STAT 07/13/2024 7:40 AM COATING LINE WORKER Multiple myeloma in relapse (HCC) CBC WITH AUTO DIFFERENTIAL STAT 07/13/2024 7:40 AM COATING LINE WORKER Multiple myeloma in relapse (HCC) APTT STAT 07/13/2024 7:24 AM COATING LINE WORKER Multiple myeloma in relapse (HCC) PROTIME-INR STAT 07/13/2024 7:24 AM COATING LINE WORKER Multiple myeloma in relapse (HCC) IMMUNOTYPING Routine 06/22/2024 7:20 AM COATING LINE WORKER Multiple myeloma, remission status unspecified (HCC) EGFR Routine 06/22/2024 7:20 AM COATING LINE WORKER Multiple myeloma, remission status unspecified (HCC) DIFFERENTIAL AUTO Routine 06/22/2024 7:2 0 AM COATING LINE WORKER Multiple myeloma, remission status unspecified (HCC) CBC WITH AUTO DIFFERENTIAL Routine 06/22/2024 7:20 AM COATING LINE WORKER Multiple myeloma, remission status unspecified (HCC) COMPREHENSIVE METABOLIC PANEL Routine 06/22/2024 7:20 AM COATING LINE WORKER Multiple myeloma, remission status unspecified (HCC) IGA Routine 06/22/2024 7:20 AM COATING LINE WORKER Multiple myeloma, remission status unspecified (HCC) IGG Routine 06/22/2024 7:20 AM COATING LINE WORKER Multiple myeloma, remission status unspecified (HCC) IGM Routine 06/22/2024 7:20 AM COATING LINE WORKER Multiple myeloma, remission status unspecified (HCC) IMMUNOGLOBULIN FREE LIGHT CHAINS Routine 06/22/2024 7:20 AM COATING LINE WORKER Multiple myeloma, remission status unspecified (HCC) LACTATE DEHYDROGENASE Routine 06/22/2024 7:20 AM COATING LINE WORKER Multiple myeloma, remission status unspecified (HCC) PROTEIN ELECTROPHORESIS, WITH REFLEX, SERUM Routine 06/22/2024 7:20 AM COATING LINE WORKER Multiple myeloma, remission status unspecified (HCC) MAGNESIUM STAT 06/22/2024 7:20 AM COATING LINE WORKER Multiple myeloma in relapse (HCC) GAMMA GT STAT 06/22/2024 7:20 AM COATING LINE WORKER Multiple myeloma in relapse (HCC) PROTIME-INR STAT 06/22/2024 7:20 AM COATING LINE WORKER Multiple myeloma in relapse (HCC) APTT STAT 06/22/2024 7:20 AM COATING LINE WORKER Multiple myeloma in relapse (HCC) HEPATITIS C ANTIBODY STAT 10/16/2021 9:50 AM CDT Multiple myeloma in relapse (HCC) from Last 3 Months or Most Recently Relevant to Health Maintenance Results * (ABNORMAL) eGFR (08/26/2024 12:25 AM CDT) Pathologist [facility] eGFR 30(L) >=60 mL/min/1. 73 m2 Comment: [...] Hargrove MD LAB BLOOD ORDERABLES Final Result [facility] Department [place] [address] * (ABNORMAL) Differential, auto (08/26/2024 12:25 AM CDT) Pathologist [facility] Neutrophil abs 5.3 1.5 - 6.5 K/cumm Imm gran abs 0.0 0.0 - 0.1 K/cumm [facility] Lymphocyte abs 0.7(L) 0.8 - 3.3 K/cumm [facility] Monocyte abs 0.6 0.2 - 0.8 K/cumm [facility] Eosinophil abs 0.3 0.0 - 0.5 K/cumm [facility] Basophil abs 0.0 0.0 - 0.1 K/cumm [facility] Neutrophil pct 75.7 % [facility] Comment: Interpretive Data Percent cell count reference ranges are not reported, since discordance with absolute values may lead to misinterpretation of CBC data. Current Interpretive Data was last revised on 2017. Imm gran pct 0.4 % [facility] Comment: Interpretive Data Percent cell count reference ranges are not reported, since discordance with absolute values may lead to misinterpretation of CBC data. Current Interpretive Data was last revised on 2017. Lymphocyte pct 10.4 % [facility] Comment: Interpretive Data Percent cell count reference ranges are not reported, since discordance with absolute values may lead to misinterpretation of CBC data. Current Interpretive Data was last revised on 2017. Monocyte pct 9.0 % [facility] Comment: Interpretive Data Percent cell count reference ranges are not reported, since discordance with absolute values may lead to misinterpretation of CBC data. Current Interpretive Data was last revised on 2017. Eosinophil pct 4.4 % [facility] Comment: Interpretive Data Percent cell count reference ranges are not reported, since discordance with absolute values may lead to misinterpretation of CBC data. Current Interpretive Data was last revised on 2017. Basophil pct 0.1 % [facility] Comment: Interpretive Data Percent cell count reference ranges are not reported, since discordance with absolute values may lead to misinterpretation of CBC data. Current Interpretive Data was last revised on 2017. Blood 08/26/2024 12:2 5 AM CDT 08/26/2024 12:35 AM CDT us Karlos Hargrove MD LAB BLOOD ORDERABLES Final Result [facility] Department [place] [address] * (ABNORMAL) CBC with auto differential (08/26/2024 12:25 AM CDT) WBC 7.0 3.8 - 9.9 K/cumm Hgb 11.8(L) 13.0 - 17.5 g/dL [facility] Hct 35.7(L) 38.9 - 50.3 % [facility] Plt 131(L) 150 - 400 K/cumm [facility] MPV 9.2 9.1 - 12.3 fL [facility] RBC 3.83(L) 4.30 - 5.80 M/cumm [facility] MCV 93.2 81.3 - 96.4 fL [facility] MCH 30.8 27.1 - 33.3 pg [facility] MCHC 33.1 32.3 - 35.7 g/dL [facility] RDW CV 15.4(H) 11.1 - 14.9 % [facility] RDW SD 51.7(H) 35.7 - 48.1 fL [facility] NRBC abs 0.00 0.00 - 0.01 K/cumm [facility] Blood 08/26/2024 12:2 5 AM CDT 08/26/2024 12:35 AM CDT Karlos Hargrove MD LAB BLOOD ORDERABLES Final Result [facility] [place] [address] * Type and screen (08/26/2024 12:25 AM CDT) Yehuda, indirect Negative Comment:Patient has previous antibody history ABO Rh A Positive [facility] Blood 08/26/2024 12:2 5 AM CDT 08/26/2024 12:38 AM CDT Narrative [facility] - 08/26/2024 2:23 AM CDT Has the patient had Daratumumab or Isatuximab in the past 6 months?->Unknown Karlos Hargrove MD LAB BLOOD BANK TEST ORDERA BLES Final Result [facility] Department of [employer] [place] [address] * (ABNORMAL) Uric acid (08/26/2024 12:25 AM CDT) Uric acid 8.6(H) 3.0 - 8.0 mg/dL Blood 08/26/2024 12:2 5 AM CDT 08/26/2024 12:35 AM CDT Narrative [facility] - 08/26/2024 1:10 AM CDT Friday and only. Morning draw. . us Karlos Hargrove MD LAB BLOOD ORDERABLES Final Result Performing Organization Address City/[facility]/ZIP Co de Phone Number [facility] [place] [address] * Phosphorus (08/26/2024 12:25 AM CDT) Pathologist [facility] Phosphorus, pl 3.6 2.3 - 4.5 mg/dL Blood 08/26/2024 12:2 5 AM CDT 08/26/2024 12:35 AM CDT us Karlos Hargrove MD LAB BLOOD ORDERABLES Final Result Performing Organization Address City/[facility] Co de Phone Number [facility] Department [place] [address] * Magnesium (08/26/2024 12:25 AM CDT) Pathologist [facility] Magnesium 1.7 1.4 - 2.5 mg/dL Blood 08/26/2024 12:2 5 AM CDT 08/26/2024 12:35 AM CDT us Karlos Hargrove MD LAB BLOOD ORDERABLES Final Result Performing Organization Address City/[facility]/ZIP Co de Phone Number [facility] Department [place] [address] * Lactate dehydrogenase (LD) (08/26/2024 12:25 AM CDT) Lactate dehydrogenase (LDH) 167 100 - 250 Units/L Blood 08/26/2024 12:2 5 AM CDT 08/26/2024 12:35 AM CDT Narrative [facility] - 08/26/2024 1:10 AM CDT Friday and only. Morning draw. Karlos Hargrove MD LAB BLOOD ORDERABLES Final Result [facility] Department [place] [address] * (ABNORMAL) Comprehensive metabolic panel (08/26/2024 12:25 AM CDT) Pathologist [facility] Sodium 148(H) 135 - 145 mmol/L Potassium, pl 3.4 3.3 - 4.9 mmol/L [facility] Chloride 108 97 - 110 mmol/L [facility] CO2 28 22 - 32 mmol/L [facility] Anion gap 12 2 - 15 mmol/L [facility] BUN 35(H) 6 - 25 mg/dL [facility] Creatinine 2.27(H) 0.80 - 1.30 mg/dL [facility] Glucose 107 70 - 199 mg/dL [facility] Comment: Interpretive Data Fasting glucose >/= 126 [...] 2022. Calcium 8.9 8.5 - 10.3 mg/dL [facility] Bilirubin, total 0.6 0.1 - 1.2 mg/dL [facility] Protein, pl 5.9(L) 6.5 - 8.5 g/dL [facility] Albumin 3.7 3.5 - 5.0 g/dL [facility] Alk phos 60 40 - 130 Units/L [facility] ALT 15 7 - 55 Units/L [facility] AST 13 10 - 50 Units/L [facility] Blood 08/26/2024 12:2 5 AM CDT 08/26/2024 12:35 AM CDT Karlos Hargrove MD LAB BLOOD ORDERABLES Final Result [facility] Department of Laboratories [place] [phone] * US Vein Duplex Lower Extremity Bilateral Complete (08/25/2024 9:30 AM CDT) Anatomical Region Laterality Modality Vascular Bilateral Ultrasound 08/25/2024 8:37 AM CDT Narrative 08/27/2024 11:10 AM CDT [facility] - Department of Vascular Surgery, Vascular Laboratory [address] [place] [id number] Lower Extremity Venous Ultrasound Report Patient Name: BUFFY VALLE B : 1950 (73y 8m) Study Date: 08/25/2024 8:37:41 AM Gender: M Tech: Location: [id number] Ref Provider: OLGA KEITH Quality: Adequate Order Provider: OLGA KEITH PROCEDURES: Vascular Report: Venous Duplex imaging was performed bilaterally in the lower extremities. The common femoral, femoral, popliteal, posterior tibial, peroneal veins were evaluated for patency, spontaneity and phasicity with Doppler, compression and augmentation maneuvers. Great saphenous vein proximal at the junction was evaluated with compression maneuvers. INDICATIONS: Localized edema. FINDINGS: Performing Rn Charge: Farzana Owens RVT. Bilateral: Venous Doppler signals [...] above. Electronically Signed By: Cesar Cabello MD [facility] [phone] 08/27/2024 10:10:26 AM CDT Procedure Note Cesar Cabello MD - 08/27/2024 [facility] - Department of Vascular Surgery,Vascular Laboratory [address] [place] [id number] Lower Extremity Venous Ultrasound Report Patient Name: BUFFY VALLECarl : 1950 (73y 8m) Study Date: 08/25/2024 8:37:41 AM Gender: M Tech: Location: [id number] Ref Provider: OLGA KEITH Quality: Adequate Order Provider: OLGA KEITH PROCEDURES: Vascular Report: Venous Duplex imaging was performed bilaterally in the lower extremities.The common femoral, femoral, popliteal, posterior tibial, peroneal veins wereevaluated for patency, spontaneity and phasicity with Doppler, compression and augmentationmaneuvers. Great saphenous vein proximal at the junction was evaluated with compressionmaneuvers. INDICATIONS: Localized edema. FINDINGS: Performing Rn Charge: Farzana Owens RVT. Bilateral: Venous Doppler signals [...] above. Electronically Signed By: Cesar Cabello MD [facility] [phone] 08/27/2024 10:10:26 AM CDT us Olga Keith MD IMG US PROCEDURES Final Result * (ABNORMAL) eGFR [...] of Race in Diagnosing Kidney Disease, JASN 202). The CKD-EPI equation should not be used for patients with unstable renal function and has not been validated in children and those over 70. Current interpretive data was last reviewed 2021. Blood 08/25/2024 12:3 4 AM CDT 08/25/2024 12:55 AM CDT us Karlos Hargrove MD LAB BLOOD ORDERABLES Final Result [facility] Department [place] [address] * (ABNORMAL) Differential, auto (08/25/2024 12:34 AM CDT) Neutrophil abs 5.2 1.5 - 6.5 K/cumm Imm gran abs 0.1 0.0 - 0.1 K/cumm [facility] Lymphocyte abs 0.5(L) 0.8 - 3.3 K/cumm [facility] Monocyte abs 0.5 0.2 - 0.8 K/cumm [facility] Eosinophil abs 0.4 0.0 - 0.5 K/cumm [facility] Basophil abs 0.0 0.0 - 0.1 K/cumm [facility] Neutrophil pct 77.6 % [facility] Comment: Interpretive Data Percent cell count reference ranges are not reported, since discordance with absolute values may lead to misinterpretation of CBC data. Current Interpretive Data was last revised on 2017. Imm gran pct 0.7 % [facility] Comment: Interpretive Data Percent cell count reference ranges are not reported, since discordance with absolute values may lead to misinterpretation of CBC data. Current Interpretive Data was last revised on 2017. Lymphocyte pct 7.9 % [facility] Comment: Interpretive Data Percent cell count reference ranges are not reported, since discordance with absolute values may lead to misinterpretation of CBC data. Current Interpretive Data was last revised on 2017. Monocyte pct 7.5 % [facility] Comment: Interpretive Data Percent cell count reference ranges are not reported, since discordance with absolute values may lead to misinterpretation of CBC data. Current Interpretive Data was last revised on 2017. Eosinophil pct 6.0 % [facility] Comment: Interpretive Data Percent cell count reference ranges are not reported, since discordance with absolute values may lead to misinterpretation of CBC data. Current Interpretive Data was last revised on 2017. Basophil pct 0.3 % [facility] Comment: Interpretive Data Percent cell count reference ranges are not reported, since discordance with absolute values may lead to misinterpretation of CBC data. Current Interpretive Data was last revised on 2017. Blood 08/25/2024 12:3 4 AM CDT 08/25/2024 12:57 AM CDT Karlos Hargrove MD LAB BLOOD ORDERABLES Final Result [facility] Department [place] [address] * (ABNORMAL) CBC with auto differential (08/25/2024 12:34 AM CDT) [facility] WBC 6.7 3.8 - 9.9 K/cumm Hgb 11.2(L) 13.0 - 17.5 g/dL [facility] Hct 33.3(L) 38.9 - 50.3 % [facility] Plt 136(L) 150 - 400 K/cumm [facility] MPV 9.5 9.1 - 12.3 fL [facility] RBC 3.57(L) 4.30 - 5.80 M/cumm [facility] MCV 93.3 81.3 - 96.4 fL [facility] MCH 31.4 27.1 - 33.3 pg [facility] MCHC 33.6 32.3 - 35.7 g/dL [facility] RDW CV 15.3(H) 11.1 - 14.9 % [facility] RDW SD 51.0(H) 35.7 - 48.1 fL [facility] NRBC abs 0.00 0.00 - 0.01 K/cumm [facility] Blood 08/25/2024 12:3 4 AM CDT 08/25/2024 12:57 AM CDT us Karlos Hargrove MD LAB BLOOD ORDERABLES Final Result Performing Organization Address City/State/[facility] Co de Phone Number [facility] Department [place] [address] * Phosphorus (08/25/2024 12:34 AM CDT) [facility] Phosphorus, pl 3.7 2.3 - 4.5 mg/dL Blood 08/25/2024 12:3 4 AM CDT 08/25/2024 12:55 AM CDT us Karlos Hargrove MD LAB BLOOD ORDERABLES Final Result [facility] Department [place] [address] * Magnesium (08/25/2024 12:34 AM CDT) Pathologist [facility] Magnesium 1.9 1.4 - 2.5 mg/dL Blood 08/25/2024 12:3 4 AM CDT 08/25/2024 12:55 AM CDT Karlos Hargrove MD LAB BLOOD ORDERABLES Final Result Performing Organization Address [facility] Co de Phone Number [facility] Department [place] [address] * (ABNORMAL) Comprehensive metabolic panel (08/25/2024 12:34 AM CDT) Pathologist [facility] Sodium 147(H) 135 - 145 mmol/L Potassium, pl 3.2(L) 3.3 - 4.9 mmol/L [facility] Chloride 109 97 - 110 mmol/L [facility] CO2 26 22 - 32 mmol/L [facility] Anion gap 12 2 - 15 mmol/L [facility] BUN 47(H) 6 - 25 mg/dL [facility] Creatinine 2.74(H) 0.80 - 1.30 mg/dL [facility] Glucose 154 70 - 199 mg/dL [facility] Comment: Interpretive Data Fasting glucose >/= 126 [...] 2022. Calcium 8.4(L) 8.5 - 10.3 mg/dL [facility] Bilirubin, total 0.4 0.1 - 1.2 mg/dL [facility] Protein, pl 5.9(L) 6.5 - 8.5 g/dL [facility] Albumin 3.9 3.5 - 5.0 g/dL [facility] Alk phos 61 40 - 130 Units/L [facility] ALT 18 7 - 55 Units/L [facility] AST 17 10 - 50 Units/L [facility] Blood 08/25/2024 12:3 4 AM CDT 08/25/2024 12:55 AM CDT us Karlos Hargrove MD LAB BLOOD ORDERABLES Final Result Performing Organization Address City/[facility]/ZIP Co de Phone Number [facility] Department [place] [address] * Sodium, urine, random (08/24/2024 5:16 PM CDT) Sodium, ur 44 mmol/L Comment: Interpretive Data No reference range established. Current interpretive data was last revised 2018. Urine 08/24/2024 5:16 PM CDT 08/24/2024 5:31 PM CDT us Olga Keith MD LAB URINE ORDERABLES Final Resul t Performing Organization Address [facility] Co de Phone Number [facility] Department [place] [address] * CT Abdomen Pelvis WO Contrast (08/24/2024 [...] by: Randall Braun M.D. Olga Keith MD [facility] CT PROCEDURES Final Result * (ABNORMAL) Differential, auto (08/24/2024 2:30 AM CDT) Neutrophil abs 4.9 1.5 - 6.5 K/cumm Imm gran abs 0.0 0.0 - 0.1 K/cumm [facility] Lymphocyte abs 0.7(L) 0.8 - 3.3 K/cumm [facility] Monocyte abs 0.6 0.2 - 0.8 K/cumm [facility] Eosinophil abs 0.5 0.0 - 0.5 K/cumm [facility] Basophil abs 0.0 0.0 - 0.1 K/cumm [facility] Neutrophil pct 73.7 % [facility] Comment: Interpretive Data Percent cell count reference ranges are not reported, since discordance with absolute values may lead to misinterpretation of CBC data. Current Interpretive Data was last revised on 2017. Imm gran pct 0.6 % [facility] Comment: Interpretive Data Percent cell count reference ranges are not reported, since discordance with absolute values may lead to misinterpretation of CBC data. Current Interpretive Data was last revised on 2017. Lymphocyte pct 10.0 % [facility] Comment: Interpretive Data Percent cell count reference ranges are not reported, since discordance with absolute values may lead to misinterpretation of CBC data. Current Interpretive Data was last revised on 2017. Monocyte pct 8.3 % [facility] Comment: Interpretive Data Percent cell count reference ranges are not reported, since discordance with absolute values may lead to misinterpretation of CBC data. Current Interpretive Data was last revised on 2017. Eosinophil pct 7.1 % [facility] Comment: Interpretive Data Percent cell count reference ranges are not reported, since discordance with absolute values may lead to misinterpretation of CBC data. Current Interpretive Data was last revised on 2017. Basophil pct 0.3 % [facility] Comment: Interpretive Data Percent cell count reference ranges are not reported, since discordance with absolute values may lead to misinterpretation of CBC data. Current Interpretive Data was last revised on 2017. Blood 08/24/2024 2:30 AM CDT 08/24/2024 1:28 AM CDT us Karlos Hargrove MD LAB BLOOD ORDERABLES Final Result [facility] Department of Laboratories [place], [place] [phone] * (ABNORMAL) CBC with auto differential (08/24/2024 2:30 AM CDT) WBC 6.6 3.8 - 9.9 K/cumm Hgb 10.9(L) 13.0 - 17.5 g/dL [facility] Hct 33.1(L) 38.9 - 50.3 % [facility] Plt 130(L) 150 - 400 K/cumm [facility] MPV 10.0 9.1 - 12.3 fL [facility] RBC 3.50(L) 4.30 - 5.80 M/cumm [facility] MCV 94.6 81.3 - 96.4 fL [facility] MCH 31.1 27.1 - 33.3 pg [facility] MCHC 32.9 32.3 - 35.7 g/dL [facility] RDW CV 15.3(H) 11.1 - 14.9 % [facility] RDW SD 51.8(H) 35.7 - 48.1 fL [facility] NRBC abs 0.00 0.00 - 0.01 K/cumm [facility] Blood 08/24/2024 2:30 AM CDT 08/24/2024 1:28 AM CDT Karlos Hargrove MD LAB BLOOD ORDERABLES Final Result [facility] Department [place] [address] * (ABNORMAL) eGFR (08/24/2024 1:12 AM CDT) [...] Inclusion of Race in Diagnosing Kidney Disease, ANITAN 2020). The CKD-EPI equation should not be used for patients with unstable renal function and has not been validated in children and those over 70. Current interpretive data was last reviewed 2021. Blood 08/24/2024 1:12 AM CDT 08/24/2024 1:35 AM CDT us Karlos Hargrove MD LAB BLOOD ORDERABLES Final Result Performing Organization Address [facility] de Phone Number [facility] [employer] [place] [address] * aPTT (08/24/2024 1:12 AM CDT) aPTT 32 28 - 38 sec Comment: Interpretive Data Heparin therapeutic range: 66.0 - 100.0 seconds. Range based on correlation with therapeutic heparin activity range of 0.3 - 0.7 Units/mL. Current interpretive data was last revised on 2023. Blood 08/24/2024 1:12 AM CDT 08/24/2024 1:53 AM CDT us Karlos Hargrove MD LAB BLOOD ORDERABLES Final Result Performing Organization Address [facility] [place] [address] * Protime-INR (08/24/2024 1:12 AM CDT) PT 11.7 9.7 - 13.0 sec INR 1.08 0.90 - 1.20 [facility] Comment: Interpretive data Oral anticoagulant therapeutic ranges: Venous thromboembolism prophylaxis or treatment: 2.0-3.0 CARDIOLOGY Standard range: 2.0-3.0 High-intensity range: 2.5-3.5 Refer to indication-specific guidelines for appropriate target ranges for prosthetic heart valve replacement. Current interpretive data was last revised on 2019. Blood 08/24/2024 1:12 AM CDT 08/24/2024 1:53 AM CDT us Karlos Hargrove MD LAB BLOOD ORDERABLES Final Result Performing Organization Address [facility] Co de Phone Number [facility] [place] [address] * Type and screen (08/24/2024 1:12 AM CDT) Yehuda, indirect Negative Comment:Patient has previous antibody history ABO Rh A Positive [facility] Blood 08/24/2024 1:12 AM CDT 08/24/2024 1:36 AM CDT Narrative [facility] - 08/24/2024 2:36 AM CDT Has the patient had Daratumumab or Isatuximab in the past 6 months?->Unknown us Karlos Hargrove MD LAB BLOOD BANK TEST ORDERA BLES Final Result Performing Organization Address [facility] [place] [address] * (ABNORMAL) Uric acid (08/24/2024 1:12 AM CDT) Pathologist [facility] Uric acid 9.5(H) 3.0 - 8.0 mg/dL Blood 08/24/2024 1:12 AM CDT 08/24/2024 1:35 AM CDT Narrative [facility] - 08/24/2024 2:47 AM CDT Friday and only. Morning draw. . us Karlos Hargrove MD LAB BLOOD ORDERABLES Final Result Performing Organization Address [facility] Co de Phone Number [facility] [employer] [place] [address] * Phosphorus (08/24/2024 1:12 AM CDT) Phosphorus, pl 4.5 2.3 - 4.5 mg/dL Blood 08/24/2024 1:12 AM CDT 08/24/2024 1:35 AM CDT us Karlos Hargrove MD LAB BLOOD ORDERABLES Final Result Performing Organization Address City/[facility] Co de Phone Number [facility] Department [place] [address] * Magnesium (08/24/2024 1:12 AM CDT) Pathologist [facility] Magnesium 2.0 1.4 - 2.5 mg/dL Blood 08/24/2024 1:12 AM CDT 08/24/2024 1:35 AM CDT us Karlos Hargrove MD LAB BLOOD ORDERABLES Final Result Performing Organization Address [facility] de Phone Number [facility] Department [place] [address] * Lactate dehydrogenase (LD) (08/24/2024 1:12 AM CDT) [facility] Lactate dehydrogenase (LDH) 226 100 - 250 Units/L Blood 08/24/2024 1:12 AM CDT 08/24/2024 1:35 AM CDT Narrative [facility] - 08/24/2024 2:47 AM CDT Friday and only. Morning draw. us Karlos Hargrove MD LAB BLOOD ORDERABLES Final Result Performing Organization Address City/[facility] Co de Phone Number [facility] [place] [address] * (ABNORMAL) Comprehensive metabolic panel (08/24/2024 1:12 AM CDT) Sodium 148(H) 135 - 145 mmol/L Potassium, pl 3.6 3.3 - 4.9 mmol/L [facility] Chloride 111(H) 97 - 110 mmol/L [facility] CO2 25 22 - 32 mmol/L [facility] Anion gap 12 2 - 15 mmol/L [facility] BUN 56(H) 6 - 25 mg/dL [facility] Creatinine 3.16(H) 0.80 - 1.30 mg/dL [facility] Glucose 102 70 - 199 mg/dL [facility] Comment: Interpretive Data Fasting glucose >/= 126 [...] 2022. Calcium 8.5 8.5 - 10.3 mg/dL [facility] Bilirubin, total 0.4 0.1 - 1.2 mg/dL [facility] Protein, pl 5.7(L) 6.5 - 8.5 g/dL [facility] Albumin 3.6 3.5 - 5.0 g/dL [facility] Alk phos 62 40 - 130 Units/L [facility] ALT 16 7 - 55 Units/L [facility] AST 11 10 - 50 Units/L [facility] Blood 08/24/2024 1:12 AM CDT 08/24/2024 1:35 AM CDT us Karlos Hargrove MD LAB BLOOD ORDERABLES Final Result [facility] Department [place] [address] * US Kidney Complete (08/23/2024 8:12 PM [...] by: Qian Barnes M.D. us Kinga Jones NP IMG US PROCEDURES Final R esult * (ABNORMAL) Urinalysis reflex to microscopic (08/23/2024 7:01 PM CDT) Color, ur Straw Yellow Clarity, ur Clear Clear [facility] Specific gravity, ur 1.011 1.003 - 1.030 [facility] pH, urine 5.5 [facility] Comment: Interpretive Data U rine pH is affected by diet, medications, systemic acid-base disturbances, and renal tubular function. pH may affect urinary stone formation. For example, urine pH below 6.0 may help reduce the tendency for calcium phosphate stones and pH greater than 6.0 may reduce the tendency for uric acid stone formation. Source: [facility] Current Interpretive Data was last revised on 2017 Protein, ur ql Negative Negative [facility] Glucose, ur ql Negative Negative [facility] Ketones, ur Negative Negative [facility] Bilirubin, ur Negative Negative [facility] Blood, ur 2+(A) Negative [facility] Urobilinogen, ur <2.0 <2.0 mg/dL [facility] Nitrite, ur Negative Negative [facility] Leukocyte esterase, ur Trace(A) Negative [facility] UA reflex comment Reflex to microscopic UA will be performed. [facility] Urine 08/23/2024 7:01 PM CDT 08/23/2024 7:15 PM CDT Kinga Jones NP LAB URINE ORDERABLES Angeles nicole Result [facility] Department [place] [address] * Protein / creatinine ratio, urine, random (08/23/2024 7:01 PM CDT) Protein, ur, quant 6.4 mg/dL Comment: Interpretive Data No reference range established. Current interpretive data was last revised 2018. Creatinine Ur 74.0 mg/dL [facility] Comment: Interpretive Data No reference range established. Current interpretive data was last revised 2018. Protein/creatinin e ratio 86.5 0.0 - 180.0 mg/g CR [facility] Urine 08/23/2024 7:01 PM CDT 08/23/2024 7:28 PM CDT Kinga Jones NP LAB URINE ORDERABLES Angeles l Result Performing Organization Address [facility] Co de Phone Number [facility] Department [place] [address] * (ABNORMAL) Urinalysis, microscopic only (08/23/2024 7:01 PM CDT) WBC, ur 0-5 0 - 5 /HPF RBC, ur 6-10(A) 0 - 2 /HPF [facility] Urine 08/23/2024 7:01 PM CDT 08/23/2024 7:15 PM CDT Kinga Jones NP LAB URINE ORDERABLES Angeles l Result Performing Organization Address [place]/[facility] de Phone Number [facility] [place] [address] * Urine culture Urine, clean voided (08/23/2024 7:01 PM CDT) Report Final Report: Less than 100,000 colonies/mL (clinically insignificant growth based on current clinical standards) Organism (CLINICALLY INSIGNIFICANT GROWTH [facility] Urine, clean voided 08/23/2024 7:01 PM CDT 08/23/2024 8:52 PM CDT Narrative [facility] - 08/25/2024 8:02 AM CDT Indications for Culture:->Other (specify) Other Indication:->elevated creatinine Specimen received in a sterile container. Testing performed by [facility] ([phone]) Kinga Jones NP LAB MICROBIOLOGY - GENERA L ORDERABLES Final Result Performing Organization Address [facility] Co de Phone Number [facility] [place] [address] * Immunotyping, serum with interpretation (08/23/2024 6:04 PM CDT) Immunosubtraction Please see comment Comment: NO PARAPROTEIN DETECTED Reviewed and signed by Fernando Nunez MD, PhD 08/24/2024 Blood 08/23/2024 6:04 PM CDT 08/23/2024 6:13 PM CDT Hermelindo Butler MD LAB BLOOD ORDER ELANA Final Result [facility] Department [place] [address] * (ABNORMAL) eGFR (08/23/2024 6:04 PM CDT) eGFR 19(L) >=60 mL/min/1. 73 m2 Comment: [...] LAB BLOOD ORDER ELANA Final Result [facility] [place] [address] * (ABNORMAL) Differential, auto (08/23/2024 6:04 PM CDT) Neutrophil abs 6.5 1.5 - 6.5 K/cumm Imm gran abs 0.0 0.0 - 0.1 K/cumm [facility] Lymphocyte abs 0.7(L) 0.8 - 3.3 K/cumm [facility] Monocyte abs 0.6 0.2 - 0.8 K/cumm [facility] Eosinophil abs 0.6(H) 0.0 - 0.5 K/cumm [facility] Basophil abs 0.0 0.0 - 0.1 K/cumm [facility] Neutrophil pct 77.0 % [facility] Comment: Interpretive Data Percent cell count reference ranges are not reported, since discordance with absolute values may lead to misinterpretation of CBC data. Current Interpretive Data was last revised on 2017. Imm gran pct 0.5 % [facility] Comment: Interpretive Data Percent cell count reference ranges are not reported, since discordance with absolute values may lead to misinterpretation of CBC data. Current Interpretive Data was last revised on 2017. Lymphocyte pct 8.3 % [facility] Comment: Interpretive Data Percent cell count reference ranges are not reported, since discordance with absolute values may lead to misinterpretation of CBC data. Current Interpretive Data was last revised on 2017. Monocyte pct 7.3 % [facility] Comment: Interpretive Data Percent cell count reference ranges are not reported, since discordance with absolute values may lead to misinterpretation of CBC data. Current Interpretive Data was last revised on 2017. Eosinophil pct 6.5 % [facility] Comment: Interpretive Data Percent cell count reference ranges are not reported, since discordance with absolute values may lead to misinterpretation of CBC data. Current Interpretive Data was last revised on 2017. Basophil pct 0.4 % [facility] Comment: Interpretive Data Percent cell count reference ranges are not reported, since discordance with absolute values may lead to misinterpretation of CBC data. Current Interpretive Data was last revised on 2017. Blood 08/23/2024 6:04 PM CDT 08/23/2024 6:12 PM CDT Hermelindo Butler MD LAB BLOOD ORDER ELANA Final Result [facility] Department [place] [address] * (ABNORMAL) Immunoglobulin free light chains (08/23/2024 6:04 PM CDT) [place]/Lambda ratio [facility] <0.40 0.26 - 1.65 Comment: Interpretive Data The Binding Site FreeLite assay procedure was used. Results from different manufacturers or methods may not be comparable. Serial testing should be performed using the same methods and instrumentation. Current Interpretive Data was last revised on 2023. [place] free light chain [facility] <0.06(L) 0.33 - 1.94 mg/dL [facility] Comment: Interpretive Data The Binding Site FreeLite assay procedure was used. Results from different manufacturers or methods may not be comparable. Serial testing should be performed using the same methods and instrumentation. Current Interpretive Data was last revised on 2023. Lambda free light chain [facility] 0.15(L) 0.57 - 2.63 mg/dL [facility] Comment: Interpretive Data The Binding Site FreeLite assay procedure was used. Results from different manufacturers or methods may not be comparable. Serial testing should be performed using the same methods and instrumentation. Current Interpretive Data was last revised on 2023. Blood 08/23/2024 6:04 PM CDT 08/23/2024 6:12 PM CDT Hermelindo Butler MD LAB BLOOD ORDER ELANA Final Result [facility] Department [place] [address] * (ABNORMAL) CBC with auto differential (08/23/2024 6:04 PM CDT) [facility] WBC 8.5 3.8 - 9.9 K/cumm Hgb 11.8(L) 13.0 - 17.5 g/dL [facility] Hct 35.6(L) 38.9 - 50.3 % [facility] Plt 131(L) 150 - 400 K/cumm [facility] MPV 9.8 9.1 - 12.3 fL [facility] RBC 3.78(L) 4.30 - 5.80 M/cumm [facility] MCV 94.2 81.3 - 96.4 fL [facility] MCH 31.2 27.1 - 33.3 pg [facility] MCHC 33.1 32.3 - 35.7 g/dL [facility] RDW CV 15.2(H) 11.1 - 14.9 % [facility] RDW SD 51.2(H) 35.7 - 48.1 fL [facility] NRBC abs 0.00 0.00 - 0.01 K/cumm [facility] Blood 08/23/2024 6:04 PM CDT 08/23/2024 6:12 PM CDT Hermelindo Butler MD LAB BLOOD ORDER ELANA Final Result [facility] [employer] [address] * (ABNORMAL) Uric acid (08/23/2024 6:04 PM CDT) [facility] Uric acid 9.5(H) 3.0 - 8.0 mg/dL Blood 08/23/2024 6:04 PM CDT 08/23/2024 6:13 PM CDT Hermelindo Butler MD LAB BLOOD ORDER ELANA Final Result [facility] Department of [employer] [place] [address] * (ABNORMAL) Protein electrophoresis with reflex, serum with interpretation (08/23/2024 6:04 PM CDT) [facility] Protein, sr 5.9(L) 6.2 - 8.2 g/dL Albumin 3.9 3.2 - 5.0 g/dL [facility] Alpha-1 globulin 0.4 0.2 - 0.4 g/dL [facility] Alpha-2 globulin 0.7 0.5 - 1.0 g/dL [facility] Beta-1 globulin 0.4 0.3 - 0.6 g/dL [facility] Beta-2 globulin 0.3 0.2 - 0.6 g/dL [facility] Gamma globulin 0.2(L) 0.5 - 1.7 g/dL [facility] SPEP interp Please see comment [facility] Comment: No apparent monoclonal peak Decreased gamma globulins Electrophoretic pattern appears similar to previous sample 08/04/24 See immunotyping for further information Reviewed and signed by Fernando Nunez MD, PhD 08/24/2024 Blood 08/23/2024 6:04 PM CDT 08/23/2024 6:13 PM CDT Hermelindo Butler MD LAB BLOOD ORDER ELANA Final Result [facility] Department of [employer] [place] [address] * (ABNORMAL) Phosphorus (08/23/2024 6:04 PM CDT) [facility] Phosphorus, pl 4.7(H) 2.3 - 4.5 mg/dL Blood 08/23/2024 6:04 PM CDT 08/23/2024 6:13 PM CDT Hermelindo Butler MD LAB BLOOD ORDER ELANA Final Result [facility] [address] * Magnesium (08/23/2024 6:04 PM CDT) [facility] Magnesium 1.9 1.4 - 2.5 mg/dL Blood 08/23/2024 6:04 PM CDT 08/23/2024 6:13 PM CDT Hermelindo Butler MD LAB BLOOD ORDER ELANA Final Result Performing Organization Address City/State/[facility] [place] [address] * Lactate dehydrogenase (LD) (08/23/2024 6:04 PM CDT) [facility] Lactate dehydrogenase (LDH) 198 100 - 250 Units/L Blood 08/23/2024 6:04 PM CDT 08/23/2024 6:13 PM CDT Hermelindo Butler MD LAB BLOOD ORDER ELANA Final Result Performing Organization Address [facility] [place] [address] * (ABNORMAL) IgA (08/23/2024 6:04 PM CDT) [facility] Immunoglobulin A <50(L) 70 - 400 mg/dL Blood 08/23/2024 6:04 PM CDT 08/23/2024 6:13 PM CDT Hermelindo Butler MD LAB BLOOD ORDER ELANA Final Result Performing Organization Address City/[facility] [place] [address] * (ABNORMAL) IgM (08/23/2024 6:04 PM CDT) [facility] Immunoglobulin M <25(L) 40 - 230 mg/dL Blood 08/23/2024 6:04 PM CDT 08/23/2024 6:13 PM CDT Hermelindo Butler MD LAB BLOOD ORDER ELANA Final Result Performing Organization Address City/[facility]/ZIP Co de Phone Number [facility] Department [place] [address] * (ABNORMAL) IgG (08/23/2024 6:04 PM CDT) [facility] Immunoglobulin G <300(L) 700 - 1,600 mg/dL Blood 08/23/2024 6:04 PM CDT 08/23/2024 6:13 PM CDT Hermelindo Butler MD LAB BLOOD ORDER ELANA Final Result Performing Organization Address [facility] de Phone Number [facility] Department [place] [address] * (ABNORMAL) Comprehensive metabolic panel (08/23/2024 6:04 PM CDT) [facility] Sodium 146(H) 135 - 145 mmol/L Potassium, pl 3.8 3.3 - 4.9 mmol/L [facility] Chloride 107 97 - 110 mmol/L [facility] CO2 26 22 - 32 mmol/L [facility] Anion gap 13 2 - 15 mmol/L [facility] BUN 58(H) 6 - 25 mg/dL [facility] Creatinine 3.37(H) 0.80 - 1.30 mg/dL [facility] Glucose 89 70 - 199 mg/dL [facility] Comment: Interpretive Data Fasting glucose >/= 126 [...] Calcium 8.9 8.5 - 10.3 mg/dL [facility] Bilirubin, total 0.4 0.1 - 1.2 mg/dL [facility] Protein, pl 6.2(L) 6.5 - 8.5 g/dL [facility] Albumin 4.0 3.5 - 5.0 g/dL [facility] Alk phos 68 40 - 130 Units/L [facility] ALT 16 7 - 55 Units/L [facility] AST 12 10 - 50 Units/L [facility] Blood 08/23/2024 6:04 PM CDT 08/23/2024 6:13 PM CDT Hermelindo Butler MD LAB BLOOD ORDER ELANA Final Result [facility] Department [place] [address] * SCAN - LABS (08/20/2024) us Provider Scanning Final Result * SCAN - LABS (08/10/2024) us Provider Scanning Final Result * US Kidney Complete (08/06/2024 2:42 PM COATING LINE WORKER) Anatomical Region Laterality Modality Kidney N/A Ultrasound 08/06/2024 3:27 PM COATING LINE WORKER Impressions 08/06/2024 3:27 PM COATING LINE WORKER 1. Mild nephromegaly with mild to moderate hydronephrosis bilaterally. 2. Incomplete bladder emptying with post void bladder residual of 397 mL. Electronically signed by: Dylan Tinajero M.D. Narrative 08/06/2024 3:27 PM COATING LINE WORKER EXAMINATION: COMPLETE RENAL SONOGRAM HISTORY: Rising creatinine. [...] by: Dylan Tinajero M.D. Hermelindo Butler MD [facility] US PROCEDUR ES Final Result * (ABNORMAL) Urinalysis reflex to microscopic (08/06/2024 9:19 AM COATING LINE WORKER) Color, ur Straw Yellow Clarity, ur Clear Clear [facility] Specific gravity, ur 1.013 1.003 - 1.030 [facility] pH, urine 5.5 [facility] Comment: Interpretive Data U rine pH is affected by diet, medications, systemic acid-base disturbances, and renal tubular function. pH may affect urinary stone formation. For example, urine pH below 6.0 may help reduce the tendency for calcium phosphate stones and pH greater than 6.0 may reduce the tendency for uric acid stone formation. Source: [employer] Current Interpretive Data was last revised on 2017 Protein, ur ql Negative Negative [facility] Glucose, ur ql Negative Negative [facility] Ketones, ur Negative Negative [facility] Bilirubin, ur Negative Negative [facility] Blood, ur 3+(A) Negative [facility] Urobilinogen, ur <2.0 <2.0 mg/dL [facility] Nitrite, ur Negative Negative [facility] Leukocyte esterase, ur Trace(A) [facility] UA reflex comment Reflex to microscopic UA will be performed. [facility] Urine 08/06/2024 9:19 AM COATING LINE WORKER 08/06/2024 9:19 AM COATING LINE WORKER Lyndsey Fagan LAB URINE ORDERABLES Angeles l Result Performing Organization Address [facility] de Phone Number [facility] [place] [address] * Protein / creatinine ratio, urine, random (08/06/2024 9:19 AM COATING LINE WORKER) Protein, ur, quant 7.9 mg/dL Comment: Interpretive Data No reference range established. Current interpretive data was last revised 2018. Creatinine Ur 77.4 mg/dL [facility] Comment: Interpretive Data No reference range established. Current interpretive data was last revised 2018. Protein/creatinin e ratio 102.1 0.0 - 180.0 mg/g CR [facility] Urine 08/06/2024 9:19 AM COATING LINE WORKER 08/06/2024 9:41 AM COATING LINE WORKER Lyndsey Fagan MEDICAL PATHOLOGY TEACHER LAB URINE ORDERABLES Angeles l Result Performing Organization Address [facility] Co de Phone Number [facility] of [employer] [place] [address] * (ABNORMAL) Urinalysis, microscopic only (08/06/2024 9:19 AM COATING LINE WORKER) WBC, ur 6-10(A) 0 - 5 /HPF RBC, ur 21-50(A) 0 - 2 /HPF [facility] Bacteria, ur Trace(A) [facility] Mucous, ur Present(A) [facility] Urine 08/06/2024 9:19 AM COATING LINE WORKER 08/06/2024 9:19 AM COATING LINE WORKER us Lyndsey Fagan NP LAB URINE ORDERABLES Angeles l Result Performing Organization Address City/[facility]/ZIP Co de Phone Number [facility] Department [place] [address] * (ABNORMAL) eGFR (08/06/2024 7:43 AM COATING LINE WORKER) eGFR 31(L) >=60 mL/min/1. 73 m2 Comment: [...] last reviewed 2021. Blood 08/06/2024 7:43 AM COATING LINE WORKER 08/06/2024 7:52 AM COATING LINE WORKER us Hermelindo Butler MD LAB BLOOD ORDER ELANA Final Result Performing Organization Address City/[facility]/ZIP Co de Phone Number [facility] Department [place] [address] * (ABNORMAL) Differential, auto (08/06/2024 7:43 AM COATING LINE WORKER) Neutrophil abs 5.4 1.5 - 6.5 K/cumm Comment:Testing performed by : [facility], [address] [place] [phone] Lymphocyte abs 0.8 0.8 - 3.3 K/cumm [facility] Comment:Testing performed by : [facility], [address] [place] [phone] Monocyte abs 0.5 0.2 - 0.8 K/cumm [facility] Comment:Testing performed by : [facility], [address] [place], [place] [id number] Eosinophil abs 0.7(H) 0.0 - 0.5 K/cumm [facility] Comment:Testing performed by : [facility], [address] [place], [place] [phone] Basophil abs 0.0 0.0 - 0.1 K/cumm [facility] Comment:Testing performed by : [facility], [address] [place], [place] [phone] Neutrophil pct 72.4 % [facility] Comment: Interpretive Data Percent cell count reference ranges are not reported, since discordance with absolute values may lead to misinterpretation of CBC data. Current Interpretive Data was last revised on 2017. Testing performed by: [facility], [address] [place] [phone] Lymphocyte pct 10.4 % [facility] Comment: Interpretive Data Percent cell count reference ranges are not reported, since discordance with absolute values may lead to misinterpretation of CBC data. Current Interpretive Data was last revised on 2017. Testing performed by: [facility], [address] [place] [phone] Monocyte pct 7.3 % [facility] Comment: Interpretive Data Percent cell count reference ranges are not reported, since discordance with absolute values may lead to misinterpretation of CBC data. Current Interpretive Data was last revised on 2017. Testing performed by: [facility], [address] [place] [phone] Eosinophil pct 9.4 % [facility] Comment: Interpretive Data Percent cell count reference ranges are not reported, since discordance with absolute values may lead to misinterpretation of CBC data. Current Interpretive Data was last revised on 2017. Testing performed by: [facility], [address] [place] [phone] Basophil pct 0.5 % [facility] Comment: Interpretive Data Percent cell count reference ranges are not reported, since discordance with absolute values may lead to misinterpretation of CBC data. Current Interpretive Data was last revised on 2017. Testing performed by: [facility], [address] [place] [phone] Blood 08/06/2024 7:4 3 AM COATING LINE WORKER 08/06/2024 7:51 AM COATING LINE WORKER us Hermelindo Butler MD LAB BLOOD ORDER ELANA Final Result [facility] Department [place] [address] * (ABNORMAL) CBC with auto differential (08/06/2024 7:43 AM COATING LINE WORKER) WBC 7.5 3.8 - 9.9 K/cumm Comment:Testing performed by : [facility], [address] [place] [phone] Hgb 13.7 13.0 - 17.5 g/dL [facility] Comment:Testing performed by : [facility], [address] [place] [phone] Hct 40.6 38.9 - 50.3 % [facility] Comment:Testing performed by : [facility], [address] [place] [phone] Plt 169 150 - 400 K/cumm [facility] Comment:Testing performed by : [facility], [address] [place] [phone] MPV 7.5 6.8 - 10.4 fL [facility] Comment:Testing performed by : [facility], [address] [place], [place] [phone] RBC 4.37 4.30 - 5.80 M/cumm [facility] Comment:Testing performed by : [facility], [address] [place], [place] [phone] MCV 92.7 81.3 - 96.4 fL [facility] Comment:Testing performed by : [facility], [address] [place], [place] [phone] MCH 31.3 27.1 - 33.3 pg [facility] Comment:Testing performed by : [facility], [address] [place] [address] MCHC 33.8 32.3 - 35.7 g/dL [facility] Comment:Testing performed by : [facility], [address] [place], [place] [phone] RDW CV 16.5(H) 11.1 - 14.9 % [facility] Comment:Testing performed by : [facility], [address] [place], [place] [phone] NRBC abs 0.00 0.00 - 0.01 K/cumm [facility] Comment:Testing performed by : [facility], [address] [place] [address] Blood 08/06/2024 7:43 AM COATING LINE WORKER 08/06/2024 7:51 AM COATING LINE WORKER Hermelindo Butler MD LAB BLOOD ORDER ELANA Final Result [facility] Department of Laboratories [place], [place] [id number] * (ABNORMAL) PSA diagnostic (08/06/2024 7:43 AM COATING LINE WORKER) PSA-Total 6.28(H) <=6.20 ng/mL Comment: Interpretive Data [...] last revised 21. Blood 08/06/2024 7:43 AM COATING LINE WORKER 08/06/2024 7:52 AM COATING LINE WORKER Hermelindo Butler MD LAB BLOOD ORDER ELANA Final Result Performing Organization Address [facility] Co de Phone Number [facility] Department [place] [address] * Lactate dehydrogenase (LD) (08/06/2024 7:43 AM COATING LINE WORKER) Lactate dehydrogenase (LDH) 161 100 - 250 Units/L Blood 08/06/2024 7:43 AM COATING LINE WORKER 08/06/2024 7:52 AM COATING LINE WORKER Hermelindo Butler MD LAB BLOOD ORDER ELANA Final Result Performing Organization Address [facility] de Phone Number [facility] Department of [employer] [place] [address] * (ABNORMAL) Lipid panel (08/06/2024 7:43 AM COATING LINE WORKER) Cholesterol 128 30 - 199 mg/dL Comment: [...] revised on 2018. Triglycerides 149 <=149 mg/dL [facility] Comment: Interpretive Data Ages < [...] on 2018. HDL 38(L) >=40 mg/dL [facility] Comment: Interpretive Data Ages < or = [...] 2018. LDL, calculated 64 <=129 mg/dL [facility] Comment: Interpretive Data Ages < or = [...] NCEP Expert Panel. Circulation 2004;110:227 3. Luis Argueta al. NATALIIA Cardiol. 2020 October 07;5(5):540-548. doi: 10.1001/jamacardio.2020.0013 Current Interpretive Data was last revised on 2024. Non-HDL Cholesterol 90 mg/dL [facility] Comment: Interpretive Data Ages < or = [...] last revised on 2018. Chol/HDL ratio 3 [facility] Blood 08/06/2024 7:43 AM COATING LINE WORKER 08/06/2024 7:52 AM COATING LINE WORKER Hermelindo Butler MD LAB BLOOD ORDER ELANA Final Result [facility] Department [place] [address] * (ABNORMAL) Comprehensive metabolic panel (08/06/2024 7:43 AM COATING LINE WORKER) Sodium 145 135 - 145 mmol/L Potassium, pl 4.2 3.3 - 4.9 mmol/L [facility] Chloride 108 97 - 110 mmol/L [facility] CO2 30 22 - 32 mmol/L [facility] Anion gap 7 2 - 15 mmol/L [facility] BUN 51(H) 6 - 25 mg/dL [facility] Creatinine 2.21(H) 0.80 - 1.30 mg/dL [facility] Glucose 113 70 - 199 mg/dL [facility] Comment: Interpretive Data Fasting glucose >/= 126 [...] 2022. Calcium 9.2 8.5 - 10.3 mg/dL [facility] Bilirubin, total 0.5 0.1 - 1.2 mg/dL [facility] Protein, pl 6.2(L) 6.5 - 8.5 g/dL [facility] Albumin 4.1 3.5 - 5.0 g/dL [facility] Alk phos 61 40 - 130 Units/L [facility] ALT 15 7 - 55 Units/L [facility] AST 16 10 - 50 Units/L [facility] Blood 08/06/2024 7:43 AM COATING LINE WORKER 08/06/2024 7:52 AM COATING LINE WORKER Hermelindo Butler MD LAB BLOOD ORDER ELANA Final Result Performing Organization Address City/[facility] de Phone Number [facility] Department of [employer] [place] [address] * aPTT (08/03/2024 9:21 AM COATING LINE WORKER) aPTT 31 28 - 38 sec Comment: Interpretive Data Heparin therapeutic range: 66.0 - 100.0 seconds. Range based on correlation with therapeutic heparin activity range of 0.3 - 0.7 Units/mL. Current interpretive data was last revised on 2023. Blood 08/03/2024 9:21 AM COATING LINE WORKER 08/03/2024 9:47 AM COATING LINE WORKER Hermelindo Butler MD LAB BLOOD ORDER ELANA Final Result Performing Organization Address City/[facility] Co de Phone Number [facility] Department [place] [address] * Protime-INR (08/03/2024 9:21 AM COATING LINE WORKER) PT 11.5 9.7 - 13.0 sec INR 1.06 0.90 - 1.20 [facility] Comment: Interpretive data Oral anticoagulant therapeutic ranges: Venous thromboembolism prophylaxis or treatment: 2.0-3.0 CARDIOLOGY Standard range: 2.0-3.0 High-intensity range: 2.5-3.5 Refer to indication-specific guidelines for appropriate target ranges for prosthetic heart valve replacement. Current interpretive data was last revised on 2019. Blood 08/03/2024 9:21 AM COATING LINE WORKER 08/03/2024 9:47 AM COATING LINE WORKER Hermelindo Butler MD LAB BLOOD ORDER ELANA Final Result Performing Organization Address [facility] Co de Phone Number [facility] Department of [employer] [place] [address] * Immunotyping, serum with interpretation (08/03/2024 7:40 AM COATING LINE WORKER) Pathologist [facility] Immunosubtraction Please see comment Comment: NO PARAPROTEIN DETECTED Reviewed and signed by Hermelindo Mcnulty MD 08/04/2024 Blood 08/03/2024 7:40 AM COATING LINE WORKER 08/03/2024 8:24 AM COATING LINE WORKER Hermelindo Butler MD LAB BLOOD ORDER ELANA Final Result Performing Organization Address [facility] Co de Phone Number [facility] Department of [employer] [place] [address] * (ABNORMAL) eGFR (08/03/2024 7:40 AM COATING LINE WORKER) Pathologist [facility] eGFR 37(L) >=60 mL/min/1. 73 m2 Comment: [...] last reviewed 2021. Blood 08/03/2024 7:40 AM COATING LINE WORKER 08/03/2024 7:49 AM COATING LINE WORKER us Hermelindo Butler MD LAB BLOOD ORDER ELANA Final Result [facility] Department [place] [address] * (ABNORMAL) Differential, auto (08/03/2024 7:40 AM COATING LINE WORKER) Neutrophil abs 5.6 1.5 - 6.5 K/cumm Comment:Testing performed by : [facility], [address] [place] [phone] Lymphocyte abs 0.9 0.8 - 3.3 K/cumm [facility] Comment:Testing performed by : [facility], [address] [place] [phone] Monocyte abs 0.6 0.2 - 0.8 K/cumm [facility] Comment:Testing performed by : [facility], [address] [place] [phone] Eosinophil abs 0.8(H) 0.0 - 0.5 K/cumm CERFRANK BJ Comment:Testing performed by : [facility], [address] [place] [phone] Basophil abs 0.0 0.0 - 0.1 K/cumm CERFRANK BJ Comment:Testing performed by : [facility], [address] [place] [phone] Neutrophil pct 70.4 % CERFRANK SUAREZ Comment: Interpretive Data Percent cell count reference ranges are not reported, since discordance with absolute values may lead to misinterpretation of CBC data. Current Interpretive Data was last revised on 2017. Testing performed by: [facility], [address] [place] [phone] Lymphocyte pct 11.2 % MT SUAREZ Comment: Interpretive Data Percent cell count reference ranges are not reported, since discordance with absolute values may lead to misinterpretation of CBC data. Current Interpretive Data was last revised on 2017. Testing performed by: [facility], [address] [place] [phone] Monocyte pct 7.7 % MT SUAREZ Comment: Interpretive Data Percent cell count reference ranges are not reported, since discordance with absolute values may lead to misinterpretation of CBC data. Current Interpretive Data was last revised on 2017. Testing performed by: [facility], [address] [place] [address] Eosinophil pct 10.1 % MT SU[facility]Z Comment: Interpretive Data Percent cell count reference ranges are not reported, since discordance with absolute values may lead to misinterpretation of CBC data. Current Interpretive Data was last revised on 2017. Testing performed by: [facility], [address] [place] [phone] Basophil pct 0.6 % MT SU[facility]Z Comment: Interpretive Data Percent cell count reference ranges are not reported, since discordance with absolute values may lead to misinterpretation of CBC data. Current Interpretive Data was last revised on 2017. Testing performed by: [facility], [address] [place] [phone] Blood 08/03/2024 7:40 AM COATING LINE WORKER 08/03/2024 7:47 AM COATING LINE WORKER us Hermelindo Butler MD LAB BLOOD ORDER ELANA Final Result [facility] Department [place] [address] * (ABNORMAL) Immunoglobulin free light chains (08/03/2024 7:40 AM COATING LINE WORKER) Pathologist [facility] [place]/Lambda ratio [facility] See Comment 0.26 - 1.65 Comment: Unable to calculate exact result. Interpretive Data The Binding Site FreeLite assay procedure was used. Results from different manufacturers or methods may not be comparable. Serial testing should be performed using the same methods and instrumentation. Current Interpretive Data was last revised on 2023. [place] free light chain [facility] <0.06(L) 0.33 - 1.94 mg/dL [facility] Comment: Interpretive Data The Binding Site FreeLite assay procedure was used. Results from different manufacturers or methods may not be comparable. Serial testing should be performed using the same methods and instrumentation. Current Interpretive Data was last revised on 2023. Lambda free light chain [facility] <0.13(L) 0.57 - 2.63 mg/dL [facility] Comment: Interpretive Data The Binding Site FreeLite assay procedure was used. Results from different manufacturers or methods may not be comparable. Serial testing should be performed using the same methods and instrumentation. Current Interpretive Data was last revised on 2023. Blood 08/03/2024 7:40 AM COATING LINE WORKER 08/03/2024 8:24 AM COATING LINE WORKER Hermelindo Butler MD LAB BLOOD ORDER ELANA Final Result [facility] Department of Laboratories [place], [place] [id number] * (ABNORMAL) CBC with auto differential (08/03/2024 7:40 AM COATING LINE WORKER) Pathologist [facility] WBC 7.9 3.8 - 9.9 K/cumm Comment:Testing performed by : [facility], [address] [place] [phone] Hgb 13.7 13.0 - 17.5 g/dL [facility] Comment:Testing performed by : [facility], [address] [place] [phone] Hct 41.5 38.9 - 50.3 % CERNER BJ Comment:Testing performed by : [facility], [address] [place] [address] Plt 163 150 - 400 K/cumm CERFRANK BJ Comment:Testing performed by : [facility], [address] [place] [address] MPV 7.8 6.8 - 10.4 fL CERFRANK BJ Comment:Testing performed by : [facility], [address] [place] [address] RBC 4.50 4.30 - 5.80 M/cumm CERFRANK BJ Comment:Testing performed by : [facility], [address] [place] [address] MCV 92.1 81.3 - 96.4 fL CERFRANK BJ Comment:Testing performed by : [facility], [address] [place] [address] MCH 30.4 27.1 - 33.3 pg CERFRANK BJ Comment:Testing performed by : [facility], [address] [place] [address] MCHC 33.0 32.3 - 35.7 g/dL CERFRANK BJ Comment:Testing performed by : [facility], [address] [place] [address] RDW CV 16.6(H) 11.1 - 14.9 % CERFRANK BJ Comment:Testing performed by : [facility], [address] [place] [address] NRBC abs 0.00 0.00 - 0.01 K/cumm CERFRANK BJ Comment:Testing performed by : [facility], [address] [place] [address] Blood 08/03/2024 7:40 AM COATING LINE WORKER 08/03/2024 7:47 AM COATING LINE WORKER us Hermelindo Butler MD LAB BLOOD ORDER ELANA Final Result [facility] [place] [address] * (ABNORMAL) Protein electrophoresis with reflex, serum with interpretation (08/03/2024 7:40 AM COATING LINE WORKER) [facility] Protein, sr 5.7(L) 6.2 - 8.2 g/dL Albumin 3.8 3.2 - 5.0 g/dL [facility] Alpha-1 globulin 0.3 0.2 - 0.4 g/dL [facility] Alpha-2 globulin 0.6 0.5 - 1.0 g/dL [facility] Beta-1 globulin 0.4 0.3 - 0.6 g/dL [facility] Beta-2 globulin 0.3 0.2 - 0.6 g/dL [facility] Gamma globulin 0.2(L) 0.5 - 1.7 g/dL [facility] SPEP interp Please see comment [facility] Comment: No apparent monoclonal peak Decreased gamma globulins Electrophoretic pattern appears similar to previous sample 07/14/24 *See immunotyping for further information Reviewed and signed by Hermelindo Mcnulty MD 08/04/2024 Blood 08/03/2024 7:40 AM COATING LINE WORKER 08/03/2024 8:24 AM COATING LINE WORKER Hermelindo Butler MD LAB BLOOD ORDER ELANA Final Result Performing Organization Address City/[facility]/ZIP Co de Phone Number [facility] Department [place] [address] * Magnesium (08/03/2024 7:40 AM COATING LINE WORKER) [facility] Magnesium 2.2 1.4 - 2.5 mg/dL Blood 08/03/2024 7:40 AM COATING LINE WORKER 08/03/2024 9:36 AM COATING LINE WORKER Hermelindo Butler MD LAB BLOOD ORDER ELANA Final Result [facility] [place] [address] * Lactate dehydrogenase (LD) (08/03/2024 7:40 AM COATING LINE WORKER) [facility] Lactate dehydrogenase (LDH) 172 100 - 250 Units/L Blood 08/03/2024 7:40 AM COATING LINE WORKER 08/03/2024 7:49 AM COATING LINE WORKER Hermelindo Butler MD LAB BLOOD ORDER ELANA Final Result Performing Organization Address [facility] de Phone Number [facility] [place] [address] * (ABNORMAL) Hemoglobin A1c (08/03/2024 7:40 AM COATING LINE WORKER) [facility] Hgb A1C 5.8(H) 4.0 - 5.6 % Estimated Average Glucose 120 mg/dL [facility] Comment: The ADA recommends reporting an estimated Average Glucose (eAG) with all Hemoglobin A1c results using the equation derived from a study of 507 normal and diabetic adults. Minority populations were underrepresented and children were not included. (Diabetes Care 2020; 43(S1): S66-S76). The eAG is not equivalent to a fasting glucose. Blood 08/03/2024 7:40 AM COATING LINE WORKER 08/03/2024 7:49 AM COATING LINE WORKER Lyndsey Fagan NP LAB BLOOD ORDERABLES Angeles l Result Performing Organization Address [facility] Co de Phone Number [facility] Department [place] [address] * Gamma GT (08/03/2024 7:40 AM COATING LINE WORKER) [facility] GGT 23 10 - 50 Units/L Blood 08/03/2024 7:40 AM COATING LINE WORKER 08/03/2024 9:36 AM COATING LINE WORKER Hermelindo Butler MD LAB BLOOD ORDER ELANA Final Result Performing Organization Address City/State/[facility] Co de Phone Number [facility] [place] [address] * (ABNORMAL) IgA (08/03/2024 7:40 AM COATING LINE WORKER) Pathologist [facility] Immunoglobulin A <50(L) 70 - 400 mg/dL Blood 08/03/2024 7:40 AM COATING LINE WORKER 08/03/2024 8:09 AM COATING LINE WORKER Hermelindo Butler MD LAB BLOOD ORDER ELANA Final Result Performing Organization Address [facility] [place] [address] * (ABNORMAL) IgM (08/03/2024 7:40 AM COATING LINE WORKER) [facility] Immunoglobulin M <25(L) 40 - 230 mg/dL Blood 08/03/2024 7:40 AM COATING LINE WORKER 08/03/2024 8:09 AM COATING LINE WORKER Hermelindo Butler MD LAB BLOOD ORDER ELANA Final Result Performing Organization Address [facility] Co de Phone Number [facility] [employer] [place] [address] * (ABNORMAL) IgG (08/03/2024 7:40 AM COATING LINE WORKER) Pathologist [facility] Immunoglobulin G <300(L) 700 - 1,600 mg/dL Blood 08/03/2024 7:40 AM COATING LINE WORKER 08/03/2024 8:09 AM COATING LINE WORKER Hermelindo Butler MD LAB BLOOD ORDER ELANA Final Result Performing Organization Address City/[facility]/ZIP Co de Phone Number [facility] of Laboratories [place], [place] [id number] * (ABNORMAL) Comprehensive metabolic panel (08/03/2024 7:40 AM COATING LINE WORKER) Sodium 141 135 - 145 mmol/L Potassium, pl 4.0 3.3 - 4.9 mmol/L [facility] Chloride 104 97 - 110 mmol/L [facility] CO2 30 22 - 32 mmol/L [facility] Anion gap 7 2 - 15 mmol/L [facility] BUN 47(H) 6 - 25 mg/dL [facility] Creatinine 1.92(H) 0.80 - 1.30 mg/dL [facility] Glucose 116 70 - 199 mg/dL [facility] Comment: Interpretive Data Fasting glucose >/= 126 [...] 2022. Calcium 9.2 8.5 - 10.3 mg/dL [facility] Bilirubin, total 0.7 0.1 - 1.2 mg/dL [facility] Protein, pl 6.2(L) 6.5 - 8.5 g/dL [facility] Albumin 3.9 3.5 - 5.0 g/dL [facility] Alk phos 63 40 - 130 Units/L [facility] ALT 15 7 - 55 Units/L [facility] AST 17 10 - 50 Units/L [facility] Blood 08/03/2024 7:40 AM COATING LINE WORKER 08/03/2024 7:49 AM COATING LINE WORKER us Hermelindo Butler MD LAB BLOOD ORDER ELANA Final Result [facility] Department [place] [address] * (ABNORMAL) Urinalysis reflex to microscopic and culture Urine, clean voided (08/03/2024 7:30 AM COATING LINE WORKER) Color, ur Straw Yellow Clarity, ur Clear Clear [facility] Specific gravity, ur 1.012 1.003 - 1.030 [facility] pH, urine 5.5 [facility] Comment: Interpretive Data U rine pH is affected by diet, medications, systemic acid-base disturbances, and renal tubular function. pH may affect urinary stone formation. For example, urine pH below 6.0 may help reduce the tendency for calcium phosphate stones and pH greater than 6.0 may reduce the tendency for uric acid stone formation. Source: [facility] [employer] Current Interpretive Data was last revised on 2017 Protein, ur ql Negative Negative [facility] Glucose, ur ql Negative Negative [facility] Ketones, ur Negative Negative [facility] Bilirubin, ur Negative Negative [facility] Blood, ur 2+(A) Negative [facility] Urobilinogen, ur <2.0 <2.0 mg/dL [facility] Nitrite, ur Negative Negative [facility] Leukocyte esterase, ur Negative [facility] UA reflex comment Reflex to microscopic UA will be performed. [facility] Urine, clean voided 08/03/2024 7:30 AM COATING LINE WORKER 08/03/2024 7:30 AM COATING LINE WORKER Lyndsey Fagan NP LAB MICROBIOLOGY - GENERA L ORDERABLES Final Result [facility] Department [place] [address] * (ABNORMAL) Urinalysis, microscopic only (08/03/2024 7:30 AM COATING LINE WORKER) WBC, ur 6-10(A) 0 - 5 /HPF RBC, ur 11-20(A) 0 - 2 /HPF [facility] Epithelial cells, squamous, ur 1-5 0 - 5 /HPF [facility] Bacteria, ur Trace(A) [facility] Culture Reflex Comment Reflex conditions for urine culture (WBC >10) not met. [facility] Urine, clean voided 08/03/2024 7:30 AM COATING LINE WORKER 08/03/2024 7:30 AM COATING LINE WORKER Lyndsey Fagan NP LAB URINE ORDERABLES Angeles l Result Performing Organization Address [facility] Co de Phone Number [facility] Department [place] [address] * Urine culture Urine, clean voided (08/03/2024 7:30 AM COATING LINE WORKER) Report Final Report: No growth Urine, clean voided 08/03/2024 7:30 AM COATING LINE WORKER 08/03/2024 9:59 AM COATING LINE WORKER Narrative [facility] - 08/04/2024 11:14 AM COATING LINE WORKER Testing performed by [facility] ([phone]) Hermelindo Butler MD LAB MICROBIOLOG Y - GENERAL ORDERABLES Final Result Performing Organization Address [place]/[facility] de Phone Number [facility] [place] [address] * Immunotyping, serum with interpretation (07/13/2024 7:40 AM COATING LINE WORKER) Pathologist [facility] Immunosubtraction Please see comment Comment: NO PARAPROTEIN DETECTED Reviewed and signed by Rufino Huff MD, PhD 07/14/2024 Blood 07/13/2024 7:40 AM COATING LINE WORKER 07/13/2024 8:42 AM COATING LINE WORKER Hermelindo Butler MD LAB BLOOD ORDER ELANA Final Result Performing Organization Address City/[facility] Co de Phone Number [facility] [place] [address] * (ABNORMAL) eGFR (07/13/2024 7:40 AM COATING LINE WORKER) eGFR 57(L) >=60 mL/min/1. 73 m2 Comment: [...] last reviewed 2021. Blood 07/13/2024 7:40 AM COATING LINE WORKER 07/13/2024 7:47 AM COATING LINE WORKER Hermelinod Butler MD LAB BLOOD ORDER ELANA Final Result MT [facility] Department [place] [address] * Differential, auto (07/13/2024 7:40 AM COATING LINE WORKER) Pathologist [facility] Neutrophil abs 5.4 1.5 - 6.5 K/cumm Comment:Testing performed by : [facility], [address] [place] [phone] Lymphocyte abs 0.9 0.8 - 3.3 K/cumm MT SUAREZ Comment:Testing performed by : [facility], [address] [place] [phone] Monocyte abs 0.5 0.2 - 0.8 K/cumm MT SUAREZ Comment:Testing performed by : [facility], [address] [place] [phone] Eosinophil abs 0.5 0.0 - 0.5 K/cumm CERNER [facility] Comment:Testing performed by : [facility], [address] [place] [phone] Basophil abs 0.0 0.0 - 0.1 K/cumm CERNER [facility] Comment:Testing performed by : [facility], [address] [place] [phone] Neutrophil pct 73.6 % C[facility]ER [facility] Comment: Interpretive Data Percent cell count reference ranges are not reported, since discordance with absolute values may lead to misinterpretation of CBC data. Current Interpretive Data was last revised on 2017. Testing performed by: [facility], [address] [place] [phone] Lymphocyte pct 12.0 % CERNER [facility] Comment: Interpretive Data Percent cell count reference ranges are not reported, since discordance with absolute values may lead to misinterpretation of CBC data. Current Interpretive Data was last revised on 2017. Testing performed by: [facility], [address] [place] [phone] Monocyte pct 7.4 % C[facility]ER [facility] Comment: Interpretive Data Percent cell count reference ranges are not reported, since discordance with absolute values may lead to misinterpretation of CBC data. Current Interpretive Data was last revised on 2017. Testing performed by: [facility], [address] [place] [phone] Eosinophil pct 6.5 % C[facility]ER [facility] Comment: Interpretive Data Percent cell count reference ranges are not reported, since discordance with absolute values may lead to misinterpretation of CBC data. Current Interpretive Data was last revised on 2017. Testing performed by: [facility], [address] [place] [phone] Basophil pct 0.5 % C[facility]ER [facility] Comment: Interpretive Data Percent cell count reference ranges are not reported, since discordance with absolute values may lead to misinterpretation of CBC data. Current Interpretive Data was last revised on 2017. Testing performed by: [facility], [address] [place] [phone] Blood 07/13/2024 7:40 AM COATING LINE WORKER 07/13/2024 7:46 AM COATING LINE WORKER Hermelindo Butler MD LAB BLOOD ORDER ELANA Final Result [facility] Department [place] [address] * (ABNORMAL) Immunoglobulin free light chains (07/13/2024 7:40 AM COATING LINE WORKER) Pathologist [facility] [place]/Lambda ratio [facility] See Comment 0.26 - 1.65 Comment: Unable to calculate exact result. Interpretive Data The Binding Site FreeLite assay procedure was used. Results from different manufacturers or methods may not be comparable. Serial testing should be performed using the same methods and instrumentation. Current Interpretive Data was last revised on 2023. [place] free light chain [facility] <0.06(L) 0.33 - 1.94 mg/dL [facility] Comment: Interpretive Data The Binding Site FreeLite assay procedure was used. Results from different manufacturers or methods may not be comparable. Serial testing should be performed using the same methods and instrumentation. Current Interpretive Data was last revised on 2023. Lambda free light chain [facility] <0.13(L) 0.57 - 2.63 mg/dL [facility] Comment: Interpretive Data The Binding Site FreeLite assay procedure was used. Results from different manufacturers or methods may not be comparable. Serial testing should be performed using the same methods and instrumentation. Current Interpretive Data was last revised on 2023. Blood 07/13/2024 7:40 AM COATING LINE WORKER 07/13/2024 8:42 AM COATING LINE WORKER Hermelindo Butler MD LAB BLOOD ORDER ELANA Final Result [facility] Department [place] [address] * (ABNORMAL) CBC with auto differential (07/13/2024 7:40 AM COATING LINE WORKER) WBC 7.4 3.8 - 9.9 K/cumm Comment:Testing performed by : [facility], [address] [place] [address] Hgb 14.4 13.0 - 17.5 g/dL CERNER BJ Comment:Testing performed by : [facility], [address] [place] [address] Hct 44.1 38.9 - 50.3 % CERNER BJ Comment:Testing performed by : [facility], [address] [place] [address] Plt 174 150 - 400 K/cumm CERNER BJ Comment:Testing performed by : [facility], [address] [place] [address] MPV 7.5 6.8 - 10.4 fL CERNER BJ Comment:Testing performed by : [facility], [address] [place] [address] RBC 4.75 4.30 - 5.80 M/cumm CERNER BJ Comment:Testing performed by : [facility], [address] [place] [address] MCV 92.8 81.3 - 96.4 fL CERNER BJ Comment:Testing performed by : [facility], [address] [place] [address] MCH 30.2 27.1 - 33.3 pg CERNER BJ Comment:Testing performed by : [facility], [address] [place] [address] MCHC 32.6 32.3 - 35.7 g/dL CERNER BJ Comment:Testing performed by : [facility], [address] [place] [address] RDW CV 16.2(H) 11.1 - 14.9 % CERNER BJ Comment:Testing performed by : [facility], [address] [place] [address] NRBC abs 0.00 0.00 - 0.01 K/cumm CERNER BJ Comment:Testing performed by : [facility], [address] [place] [phone] Blood 07/13/2024 7:40 AM COATING LINE WORKER 07/13/2024 7:46 AM COATING LINE WORKER Hermelindo Butler MD LAB BLOOD ORDER ELANA Final Result Performing Organization Address City/[facility]/ZIP Co de Phone Number [facility] Department [place] [address] * (ABNORMAL) Protein electrophoresis with reflex, serum with interpretation (07/13/2024 7:40 AM COATING LINE WORKER) Pathologist [facility] Protein, sr 5.7(L) 6.2 - 8.2 g/dL Albumin 3.7 3.2 - 5.0 g/dL [facility] Alpha-1 globulin 0.3 0.2 - 0.4 g/dL [facility] Alpha-2 globulin 0.6 0.5 - 1.0 g/dL [facility] Beta-1 globulin 0.4 0.3 - 0.6 g/dL [facility] Beta-2 globulin 0.3 0.2 - 0.6 g/dL [facility] Gamma globulin 0.3(L) 0.5 - 1.7 g/dL [facility] SPEP interp Please see comment [facility] Comment: No apparent monoclonal peak Decreased gamma globulins Electrophoretic pattern appears similar to previous sample 06/23/24 See immunotyping for further information Reviewed and signed by Rufino Huff MD, PhD 07/14/2024 Blood 07/13/2024 7:40 AM COATING LINE WORKER 07/13/2024 8:42 AM COATING LINE WORKER Hermelindo Butler MD LAB BLOOD ORDER ELANA Final Result Performing Organization Address City/[facility]/ZIP Co de Phone Number [facility] [place] [address] * Magnesium (07/13/2024 7:40 AM COATING LINE WORKER) Pathologist [facility] Magnesium 2.2 1.4 - 2.5 mg/dL Blood 07/13/2024 7:40 AM COATING LINE WORKER 07/13/2024 7:47 AM COATING LINE WORKER us Hermelindo Butler MD LAB BLOOD ORDER ELANA Final Result Performing Organization Address [facility] de Phone Number [facility] [place] [address] * Lactate dehydrogenase (LD) (07/13/2024 7:40 AM COATING LINE WORKER) Lactate dehydrogenase (LDH) 152 100 - 250 Units/L Blood 07/13/2024 7:40 AM COATING LINE WORKER 07/13/2024 7:47 AM COATING LINE WORKER us Hermelindo Butler MD LAB BLOOD ORDER ELANA Final Result Performing Organization Address [facility] Phone Number [facility] Department [place] [address] * Gamma GT (07/13/2024 7:40 AM COATING LINE WORKER) Pathologist [facility] GGT 27 10 - 50 Units/L Blood 07/13/2024 7:40 AM COATING LINE WORKER 07/13/2024 7:47 AM COATING LINE WORKER us Hermelindo Butler MD LAB BLOOD ORDER ELANA Final Result Performing Organization Address [facility] de Phone Number [facility] [place] [address] * (ABNORMAL) IgA (07/13/2024 7:40 AM COATING LINE WORKER) Immunoglobulin A <50(L) 70 - 400 mg/dL Blood 07/13/2024 7:40 AM COATING LINE WORKER 07/13/2024 7:59 AM COATING LINE WORKER us Hermelindo Butler MD LAB BLOOD ORDER ELANA Final Result [facility] [employer] [place] [address] * (ABNORMAL) IgM (07/13/2024 7:40 AM COATING LINE WORKER) [facility] Immunoglobulin M <25(L) 40 - 230 mg/dL Blood 07/13/2024 7:40 AM COATING LINE WORKER 07/13/2024 7:59 AM COATING LINE WORKER Hermelindo Butler MD LAB BLOOD ORDER ELANA Final Result Performing Organization Address [facility] Co de Phone Number [facility] [place] [address] * (ABNORMAL) IgG (07/13/2024 7:40 AM COATING LINE WORKER) [facility] Immunoglobulin G <300(L) 700 - 1,600 mg/dL Blood 07/13/2024 7:40 AM COATING LINE WORKER 07/13/2024 7:59 AM COATING LINE WORKER Hermelindo Butler MD LAB BLOOD ORDER ELANA Final Result Performing Organization Address City/[facility] Co de Phone Number [facility] Department [place] [address] * (ABNORMAL) Comprehensive metabolic panel (07/13/2024 7:40 AM COATING LINE WORKER) [facility] Sodium 144 135 - 145 mmol/L Potassium, pl 4.2 3.3 - 4.9 mmol/L [facility] Chloride 107 97 - 110 mmol/L [facility] CO2 33(H) 22 - 32 mmol/L [facility] Anion gap 4 2 - 15 mmol/L [facility] BUN 29(H) 6 - 25 mg/dL [facility] Creatinine 1.34(H) 0.80 - 1.30 mg/dL [facility] Glucose 125 70 - 199 mg/dL [facility] Comment: Interpretive Data Fasting glucose >/= 126 [...] 2022. Calcium 9.4 8.5 - 10.3 mg/dL [facility] Bilirubin, total 0.7 0.1 - 1.2 mg/dL [facility] Protein, pl 6.2(L) 6.5 - 8.5 g/dL [facility] Albumin 4.1 3.5 - 5.0 g/dL [facility] Alk phos 65 40 - 130 Units/L [facility] ALT 18 7 - 55 Units/L [facility] AST 16 10 - 50 Units/L [facility] Blood 07/13/2024 7:40 AM COATING LINE WORKER 07/13/2024 7:47 AM COATING LINE WORKER Hermelindo Butler MD LAB BLOOD ORDER ELANA Final Result [facility] Department [place] [address] * aPTT (07/13/2024 7:24 AM COATING LINE WORKER) aPTT 28 28 - 38 sec Comment: Interpretive Data Heparin therapeutic range: 66.0 - 100.0 seconds. Range based on correlation with therapeutic heparin activity range of 0.3 - 0.7 Units/mL. Current interpretive data was last revised on 2023. Blood 07/13/2024 7:24 AM COATING LINE WORKER 07/13/2024 7:59 AM COATING LINE WORKER us Hermelindo Butler MD LAB BLOOD ORDER ELANA Final Result Performing Organization Address City/[facility] Co de Phone Number [facility] Department of [employer] [place] [address] * Protime-INR (07/13/2024 7:24 AM COATING LINE WORKER) [facility] PT 11.5 9.7 - 13.0 sec INR 1.06 0.90 - 1.20 [facility] Comment: Interpretive data Oral anticoagulant therapeutic ranges: Venous thromboembolism prophylaxis or treatment: 2.0-3.0 CARDIOLOGY Standard range: 2.0-3.0 High-intensity range: 2.5-3.5 Refer to indication-specific guidelines for appropriate target ranges for prosthetic heart valve replacement. Current interpretive data was last revised on 2019. Blood 07/13/2024 7:24 AM COATING LINE WORKER 07/13/2024 7:59 AM COATING LINE WORKER us Hermelindo Butler MD LAB BLOOD ORDER ELANA Final Result Performing Organization Address [facility] Co de Phone Number [facility] Department of [employer] [place] [address] * Immunotyping, serum (06/22/2024 7:20 AM COATING LINE WORKER) [facility] Immunosubtraction Please see comment Comment: NO PARAPROTEIN DETECTED Reviewed and signed by Fernando Nunez MD, PhD 06/23/2024 Blood 06/22/2024 7:20 AM COATING LINE WORKER 06/22/2024 10:03 AM COATING LINE WORKER us Hermelindo Butler MD LAB BLOOD ORDER ELANA Final Result Performing Organization Address City/[facility] [place] [address] * eGFR (06/22/2024 7:20 AM COATING LINE WORKER) [facility] eGFR 66 >=60 mL/min/1. 73 m2 Comment: [...] last reviewed 2021. Blood 06/22/2024 7:20 AM COATING LINE WORKER 06/22/2024 8:12 AM COATING LINE WORKER Hermelindo Butler MD LAB BLOOD ORDER ELANA Final Result [facility] Department of Laboratories [place], [place] [id number] * Differential, auto (06/22/2024 7:20 AM COATING LINE WORKER) Neutrophil abs 5.4 1.5 - 6.5 K/cumm Comment:Testing performed by : [facility], [facility] [place] [address] Lymphocyte abs 0.9 0.8 - 3.3 K/cumm MT SUAREZ Comment:Testing performed by : [facility], [address] [place] [phone] Monocyte abs 0.5 0.2 - 0.8 K/cumm MT SUAREZ Comment:Testing performed by : [facility], [address] [place] [phone] Eosinophil abs 0.2 0.0 - 0.5 K/cumm MT SUAREZ Comment:Testing performed by : [facility], [address] [place] [phone] Basophil abs 0.0 0.0 - 0.1 K/cumm CERFRANK SUAREZ Comment:Testing performed by : [facility], [address] [place] [phone] Neutrophil pct 75.7 % CERFRANK BJ Comment: Interpretive Data Percent cell count reference ranges are not reported, since discordance with absolute values may lead to misinterpretation of CBC data. Current Interpretive Data was last revised on 2017. Testing performed by: [facility], [address] [place] [phone] Lymphocyte pct 13.1 % CERFRANK BJ Comment: Interpretive Data Percent cell count reference ranges are not reported, since discordance with absolute values may lead to misinterpretation of CBC data. Current Interpretive Data was last revised on 2017. Testing performed by: [facility], [address] [place] [phone] Monocyte pct 7.1 % CERFRANK BJ Comment: Interpretive Data Percent cell count reference ranges are not reported, since discordance with absolute values may lead to misinterpretation of CBC data. Current Interpretive Data was last revised on 2017. Testing performed by: [facility], [address] [place] [phone] Eosinophil pct 3.5 % CERFRANK BJ Comment: Interpretive Data Percent cell count reference ranges are not reported, since discordance with absolute values may lead to misinterpretation of CBC data. Current Interpretive Data was last revised on 2017. Testing performed by: [facility], [address] [place] [phone] Basophil pct 0.6 % CERNER BJ Comment: Interpretive Data Percent cell count reference ranges are not reported, since discordance with absolute values may lead to misinterpretation of CBC data. Current Interpretive Data was last revised on 2017. Testing performed by: [facility], [address] [place] [phone] Blood 06/22/2024 7:20 AM COATING LINE WORKER 06/22/2024 8:08 AM COATING LINE WORKER Hermelindo Butler MD LAB BLOOD ORDER ELANA Final Result MT SUAREZ [facility] Department [place] [address] * (ABNORMAL) Immunoglobulin free light chains (06/22/2024 7:20 AM COATING LINE WORKER) Pathologist [facility] [place] See Comment 0.26 - 1.65 Comment: Unable to calculate exact result. Interpretive Data The Binding Site FreeLite assay procedure was used. Results from different manufacturers or methods may not be comparable. Serial testing should be performed using the same methods and instrumentation. Current Interpretive Data was last revised on 2023. [place] free light chain BJH <0.06(L) 0.33 - 1.94 mg/dL [facility] Comment: Interpretive Data The Binding Site FreeLite assay procedure was used. Results from different manufacturers or methods may not be comparable. Serial testing should be performed using the same methods and instrumentation. Current Interpretive Data was last revised on 2023. Lambda free light chain BJH <0.13(L) 0.57 - 2.63 mg/dL [facility] Comment: Interpretive Data The Binding Site FreeLite assay procedure was used. Results from different manufacturers or methods may not be comparable. Serial testing should be performed using the same methods and instrumentation. Current Interpretive Data was last revised on 2023. Blood 06/22/2024 7:20 AM COATING LINE WORKER 06/22/2024 9:53 AM COATING LINE WORKER Hermelindo Butler MD LAB BLOOD ORDER ELANA Final Result [facility] Department [place] [address] * (ABNORMAL) CBC with auto differential (06/22/2024 7:20 AM COATING LINE WORKER) [facility] WBC 7.1 3.8 - 9.9 K/cumm Comment:Testing performed by : [facility], [address] [place] [address] Hgb 14.6 13.0 - 17.5 g/dL CERNER BJ Comment:Testing performed by : [facility], [address] [place] [address] Hct 45.6 38.9 - 50.3 % CERNER BJ Comment:Testing performed by : [facility], [address] [place] [address] Plt 196 150 - 400 K/cumm CERNER BJ Comment:Testing performed by : [facility], [address] [place] [address] MPV 8.3 6.8 - 10.4 fL CERNER BJ Comment:Testing performed by : [facility], [address] [place], [place] [phone] RBC 4.88 4.30 - 5.80 M/cumm CERNER BJ Comment:Testing performed by : [facility], [address] [place] [address] MCV 93.5 81.3 - 96.4 fL CERNER BJ Comment:Testing performed by : [facility], [address] [place], [place] [phone] MCH 29.9 27.1 - 33.3 pg CERNER BJ Comment:Testing performed by : [facility], [address] [place] [address] MCHC 31.9(L) 32.3 - 35.7 g/dL CERNER BJ Comment:Testing performed by : [facility], [address] [place] [address] RDW CV 16.0(H) 11.1 - 14.9 % CERNER BJ Comment:Testing performed by : [facility], [address] [place] [address] NRBC abs 0.20(H) 0.00 - 0.01 K/cumm CERNER BJ Comment:Testing performed by : [facility], [address] [place] [address] [place] [phone] Blood 06/22/2024 7:20 AM COATING LINE WORKER 06/22/2024 8:08 AM COATING LINE WORKER us Hermelindo Butler MD LAB BLOOD ORDER ELANA Final Result Performing Organization Address [facility] [place] [address] * aPTT (06/22/2024 7:20 AM COATING LINE WORKER) aPTT 29 28 - 38 sec Comment: Interpretive Data Heparin therapeutic range: 66.0 - 100.0 seconds. Range based on correlation with therapeutic heparin activity range of 0.3 - 0.7 Units/mL. Current interpretive data was last revised on 2023. Blood 06/22/2024 7:20 AM COATING LINE WORKER 06/22/2024 9:50 AM COATING LINE WORKER us Hermelindo Butler MD LAB BLOOD ORDER ELANA Final Result Performing Organization Address [facility] [place] [address] * Protime-INR (06/22/2024 7:20 AM COATING LINE WORKER) PT 10.9 9.7 - 13.0 sec INR 1.01 0.90 - 1.20 [facility] Comment: Interpretive data Oral anticoagulant therapeutic ranges: Venous thromboembolism prophylaxis or treatment: 2.0-3.0 CARDIOLOGY Standard range: 2.0-3.0 High-intensity range: 2.5-3.5 Refer to indication-specific guidelines for appropriate target ranges for prosthetic heart valve replacement. Current interpretive data was last revised on 2019. Blood 06/22/2024 7:20 AM COATING LINE WORKER 06/22/2024 9:50 AM COATING LINE WORKER us Hermelindo Butler MD LAB BLOOD ORDER ELANA Final Result Performing Organization Address [facility] de Phone Number [facility] Department [place] [address] * (ABNORMAL) Protein electrophoresis with reflex, serum (06/22/2024 7:20 AM COATING LINE WORKER) Pathologist [facility] Protein, sr 5.9(L) 6.2 - 8.2 g/dL Albumin 3.7 3.2 - 5.0 g/dL [facility] Alpha-1 globulin 0.3 0.2 - 0.4 g/dL [facility] Alpha-2 globulin 0.7 0.5 - 1.0 g/dL [facility] Beta-1 globulin 0.5 0.3 - 0.6 g/dL [facility] Beta-2 globulin 0.3 0.2 - 0.6 g/dL [facility] Gamma globulin 0.4(L) 0.5 - 1.7 g/dL [facility] SPEP interp Please see comment [facility] Comment: No apparent monoclonal peak Decreased gamma globulins Electrophoretic pattern appears similar to previous sample 05-19-24 See immunotyping for further information Reviewed and signed by Fernando Nunez MD, PhD 06/23/2024 Immunotyping See Immunotyping Results [facility] Blood 06/22/2024 7:20 AM COATING LINE WORKER 06/22/2024 9:55 AM COATING LINE WORKER Hermelindo Butler MD LAB BLOOD ORDER ELANA Final Result Performing Organization Address [facility] Co de Phone Number [facility] Department [place] [address] * Magnesium (06/22/2024 7:20 AM COATING LINE WORKER) Pathologist [facility] Magnesium 2.2 1.4 - 2.5 mg/dL Blood 06/22/2024 7:20 AM COATING LINE WORKER 06/22/2024 8:12 AM COATING LINE WORKER Hermelindo Butler MD LAB BLOOD ORDER ELANA Final Result Performing Organization Address [facility] Co de Phone Number [facility] [employer] [place] [address] * Lactate dehydrogenase (LD) (06/22/2024 7:20 AM COATING LINE WORKER) Lactate dehydrogenase (LDH) 157 100 - 250 Units/L Blood 06/22/2024 7:20 AM COATING LINE WORKER 06/22/2024 8:12 AM COATING LINE WORKER Hermelindo Butler MD LAB BLOOD ORDER ELANA Final Result Performing Organization Address [facility] [place] [address] * Gamma GT (06/22/2024 7:20 AM COATING LINE WORKER) GGT 30 10 - 50 Units/L Blood 06/22/2024 7:20 AM COATING LINE WORKER 06/22/2024 8:12 AM COATING LINE WORKER Hermelindo Butler MD LAB BLOOD ORDER ELANA Final Result Performing Organization Address [facility] Co de Phone Number [facility] [place] [address] * (ABNORMAL) IgA (06/22/2024 7:20 AM COATING LINE WORKER) Immunoglobulin A <50(L) 70 - 400 mg/dL Blood 06/22/2024 7:20 AM COATING LINE WORKER 06/22/2024 9:49 AM COATING LINE WORKER Hermelindo Butler MD LAB BLOOD ORDER ELANA Final Result Performing Organization Address City/[facility]/ZIP Co de Phone Number [facility] [place] [address] * (ABNORMAL) IgM (06/22/2024 7:20 AM COATING LINE WORKER) [facility] Immunoglobulin M <25(L) 40 - 230 mg/dL Blood 06/22/2024 7:20 AM COATING LINE WORKER 06/22/2024 9:49 AM COATING LINE WORKER Hermelindo Butler MD LAB BLOOD ORDER ELANA Final Result [facility] Department [place] [address] * (ABNORMAL) IgG (06/22/2024 7:20 AM COATING LINE WORKER) [facility] Immunoglobulin G 423(L) 700 - 1,600 mg/dL Blood 06/22/2024 7:20 AM COATING LINE WORKER 06/22/2024 9:49 AM COATING LINE WORKER Hermelindo Butler MD LAB BLOOD ORDER ELANA Final Result Performing Organization Address [facility] de Phone Number [facility] Department [place] [address] * (ABNORMAL) Comprehensive metabolic panel (06/22/2024 7:20 AM COATING LINE WORKER) [facility] Sodium 141 135 - 145 mmol/L Potassium, pl 4.1 3.3 - 4.9 mmol/L [facility] Chloride 104 97 - 110 mmol/L [facility] CO2 31 22 - 32 mmol/L [facility] Anion gap 6 2 - 15 mmol/L [facility] BUN 24 6 - 25 mg/dL [facility] Creatinine 1.18 0.80 - 1.30 mg/dL [facility] Glucose 111 70 - 199 mg/dL [facility] Comment: Interpretive Data Fasting glucose >/= 126 [...] 2022. Calcium 9.5 8.5 - 10.3 mg/dL [facility] Bilirubin, total 0.7 0.1 - 1.2 mg/dL [facility] Protein, pl 6.3(L) 6.5 - 8.5 g/dL [facility] Albumin 3.8 3.5 - 5.0 g/dL [facility] Alk phos 63 40 - 130 Units/L [facility] ALT 18 7 - 55 Units/L [facility] AST 20 10 - 50 Units/L [facility] Blood 06/22/2024 7:20 AM COATING LINE WORKER 06/22/2024 8:12 AM COATING LINE WORKER Hermelindo Butler MD LAB BLOOD ORDER ELANA Final Result Performing Organization Address [facility]/ZIP Co de Phone Number [facility] Department of [employer] [place] [address] * Hepatitis C antibody (10/16/2021 9:50 AM CDT) Hep C Ab Nonreactive Nonreactive [facility] Comment:Antibodies to HCV no t detected. Does NOT exclude the possibility of recent exposure to HCV. Blood 10/16/2021 9:50 AM CDT 10/16/2021 11:22 AM CDT Hermelindo dupree MD LAB MICROBIOLOGY - GENERAL ORDERABLES Edited Result - Final Performing Organization Address City/[facility]/ZIP Co de Phone Number [facility] Department [place] [address] from Last 3 Months or Most Recently Relevant to Health Maintenance Insurance MEDICARE [employer] SENIOR SUPPLEMENT MEDICARE [employer] SENIOR SUPPLEMENT MEDICARE [facility] Address: [address] [place] [phone] [employer]MENT Advance Directives For more information, please contact: [phone] Documents on File Type Date Recorded Patient Supervisor Stave Finishing Expl anation ADVANCE DIRECTIVE 11/29/2017 11:05 AM FOX R OF HIDE MILL WORKER ADVANCE DIRECTIVE 11/12/2017 3:59 PM POWER OF HIDE MILL WORKER * Full Code (Latest Code Status [...] 9:21 AM 05/30/2021 1:44 PM Care Teams Mini Shifter Relationship Specialty Start Date End Date Jatin Gamble MD [address] [place] [address] PCP - General 10/07/16 Hermelindo Butler MD [address] [place] [address] Medical Oncologist/Hematologi Medical Oncology 12/02/17 Roberto Rojo MD [address] [place] [address] [facility] 12/02/17 Jatin Gamble MD [address] [place] [address] Referring Physician Internal Medicine 12/02/17 Lyndsey Fagan NP [address] [place] [address] Nurse Practitioner Medical Oncology 08/03/20 Erlin Servin MD [address] [address] Consulting Physician Otolaryngology 10/04/22 [place] [address] [place] [address] Consulting Physician Urology 05/28/23
[2024-08-30 09:40] LABS: Anion Gap 9 mmol/L (4-12); Blood Urea Nitrogen 36 mg/dL (7-18); Carbon Dioxide 34 mmol/L (21-32); Chloride 102 mmol/L (98-108); Estimated Glomerular Filt Rate 33; Glucose 118 mg/dL (70-99); Osmolality Calculated 309 mOsm/kg (285-295); Potassium 3.9 mmol/L (3.5-5.1); Sodium 145 mmol/L (136-145)
== END 2024-08-30 08:09 | disposition home or self-care (01) ==
LOC: CHSLAB 08:11
DX: N17.9 Acute kidney failure, unspecified (principal)
CPT/HCPCS: 36415; 80048

== ENCOUNTER 2024-09-09 16:55 | Emergency (ER) | payer MEDICARE, SELFPAY ==
[2024-09-09] VITALS (18 sets, daily range): BP systolic 111–139; BP diastolic 60–93; PULSE 70–110; RESP 16–30; TEMP 37.3–38.8; O2SAT 93–97
--- NOTE | ~2024-09-09 | CT_ITS ---
EXAMINATION: CT abdomen pelvis wo con DATE: 09/09/2024 19:23 INDICATION: dysuria with abdominal pain TECHNIQUE: Computed tomography (CT) of the abdomen and pelvis was performed without intravenous contr ast. Automated exposure control and iterative reconstruction technique were employed. The dose-length product was 1606.20 mGy-cm. COMPARISON: Bone survey 09/17/2013; x-ray lumbar spine 07/05/2023. FINDINGS: Lower thorax: Coronary artery calcification Liver: Mildly enlarged. Diffusely low-density parenchyma Biliary/Gallbladder: Cholelithiasis. No inflammatory changes No bile duct dilation. Pancreas: Mild fatty atrophy. Spleen: Enlarged. Adrenals:No mass. Kidneys: No suspicious mass. Mild bilateral hydronephrosis, worse on the left. Dystrophic calcificati on adjacent to the left upper pole, presumably posttraumatic or post therapeutic. Large bilateral maricruz al cysts measuring up to 9.3 cm on the right GI tract: No small or large bowel dilation. Normal appendix. Mesentery/Peritoneum: No ascites, mass, or free air. Retroperitoneum: No mass. Pelvis: The urinary bladder is drained by a Arriaza catheter. 1.8 cm, 2.8 cm, and 2.9 cm bladder stones . Mild inflammatory change surrounding the gallbladder wall. Prostatomegaly. Soft Tissues: Soft tissues and body wall unremarkable. Bones: No acute osseous finding. Scattered lytic lesions in the pelvis and bilateral femurs. IMPRESSION: Mild hepatosplenomegaly. Hepatic steatosis. Cholelithiasis, without inflammatory changes. Multiple bladder calculi, causing likely cystitis and bilateral mild hydronephrosis. Lytic osseous lesions, consistent with the patient's history of multiple myeloma. Reviewed, dictated and finalized at location K. IMPRESSION: Mild hepatosplenomegaly. Hepatic steatosis. Cholelithiasis, without inflammatory changes. Multiple bladder calculi, causing likely cystitis and bilateral mild hydronephr osis. Lytic osseous lesions, consistent with the patient's history of multiple myelom a.
--- NOTE | ~2024-09-09 | CT_ITS ---
EXAMINATION: CT brain wo con DATE: 09/09/2024 19:22 INDICATION: altered mental status . TECHNIQUE: Computed tomography (CT) of the head was performed without intravenous contrast. The mA wa s adjusted according to patient size. Iterative reconstruction technique was employed. The dose-lengt h product was 605.33 mGy-cm. COMPARISON: 07/29/2023. FINDINGS: No acute intracranial hemorrhage or extra-axial fluid collection. No hydrocephalus, mass, or herniation. No acute ischemic infarct. Unremarkable dural venous sinus attenuation. No acute osseous abnormality. Status post bilateral ethmoidectomy, mild ethmoid mucosal thickening, the remaining aerated spaces ar e clear. Mild atrophy and chronic white matter change. Atherosclerotic intracranial calcification. Bilateral l ens replacements. IMPRESSION: No acute intracranial process. Reviewed, dictated and finalized at location K.
--- NOTE | ~2024-09-09 | XR_ITS ---
EXAMINATION: XR chest 2V Exam Date/Time: 09/09/2024 18:50 CDT HISTORY: fever, weakness Comparison: 08/06/2023. RESULT: Lines, tubes, and devices: Right chest implanted port terminating at the cavoatrial junction. Lungs and pleura: Low volumes, otherwise clear. Cardiomediastinal silhouette: Stable. Other: No acute osseous or upper abdominal finding. IMPRESSION: No acute cardiopulmonary process. Reviewed, dictated and finalized at location K.
--- OUTSIDE RECORDS SUMMARY | 2024-09-09 17:10 | XMS_ITS | Encounter Summary ---
Author Organization [facility] Address [address] [place] [address] Phone Care Team Providers Care Fire Protection Equipment Technician Name Role Phone Jatin Gamble MD Primary Care Provider [phone] Hermelindo Butler MD Unavailable Roberto Rojo MD Unavailable [phone] Jatin Gamble MD Unavailable [phone] Lyndsey Fagan NP Unavailable [phone] Erlin Servin MD Unavailable Julian Valdez MD Unavailable Encounter Details Date Type Department Care Team (Late st Contact Info) Description 09/06/2024 Orders Only [facility] [facility] Bone Marrow Transplant [address] [place] [address] Lyndsey Fagan NP [address] DIV BONE MARROW TRANSPLANT, [address] [place], [place] [id number] Social History Tobacco Use Types Packs/Day Years [...] on file 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 Gender Identity Not on file Sexual Orientation Not on file documented as of this encounter Plan of Treatment Not on file documented as of this encounter Visit Diagnoses Not on filedocumented in this encounter Care Teams Fire Protection Equipment Technician Relationship Specialty Start Date End Date Jatin Gamble MD [address] [place] [address] PCP - General 10/07/16 Hermelindo Butler MD [address] [place] [address] [facility] 12/02/17 Roberto Rojo MD [address] [place] [address] [facility]cology 12/02/17 Jatin Gamble MD [address] [place] [address] Referring Physician Internal Medicine 12/02/17 Lyndsey Fagan NP [address] [place] [address] Nurse Practitioner Medical Oncology 08/03/20 Erlin Servin MD [address] [place] [address] Consulting Physician Otolaryngology 10/04/22 [place] [address] [place] [address] Consulting Physician Urology 05/28/23 documented as of this encounter
--- OUTSIDE RECORDS SUMMARY | 2024-09-09 17:10 | XMS_ITS | Encounter Summary ---
Author Organization [facility] Healthcare Address [address] [place] [address] Care Team Providers Care Target Man Name Role Phone Jatin Gamble MD Primary Care Provider Hermeilndo Butler MD Unavailable Roberto Rojo MD Unavailable [phone] Jatin Gamble MD Unavailable [phone] Garry Dukes MD Unavailable Lyndsey Fagan NP Unavailable Erlin Servin MD Unavailable [phone] Julian Valdez MD Unavailable Encounter Details Date Type Department Care Team (Late st Contact Info) Description 11/22/2021 Documentation [facility] Case Management [address] [place] [address] Forrest Epstein, RN Social History Tobacco Use Types Packs/Day Years Used Date Smoking Tobacco: Never Smokeless Tobacco: Never Alcohol Use Standard Drinks/Week Comments No 0 (1 standard drink = 0.6 oz pur e alcohol) Sex and Gender Information Value Date Recorded Sex Assigned at Not on file 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 Gender Identity Not on file Sexual Orientation [...] documented as of this encounter Care Teams Target Man Relationship Specialty Start Date End Date Jatin Gamble MD [address] [place] [address] PCP - General 10/07/16 Hermelindo Butler MD [address] [place] [address] [facility] Oncology 12/02/17 Roberto Rojo MD [address] [place] [id number] [facility] Hematology and Oncology 12/02/17 Jatin Gamble MD [address] [place] [address] Referring Physician Internal Medicine 12/02/17 Garry Dukes MD [address] [place], [place] [id number] Referring Physician Urology 12/02/17 05/27/23 Lyndsey Fagan NP [address] [place], [place] [id number] Nurse Practitioner Medical Oncology 08/03/20 Erlin Servin MD [address] [place] [address] Consulting Physician Otolaryngology 10/04/22 [place] [address] [place] [address] Consulting Physician Urology 05/28/23 documented as of this encounter
--- OUTSIDE RECORDS SUMMARY | 2024-09-09 17:10 | XMS_ITS | Encounter Summary ---
Author Organization [facility] Address [address] [place] [address] Phone Care Team Providers Care Shell Trim Tool Setter Name Role Phone Jatin Gamble MD Primary Care Provider Hermelindo Bulter MD Unavailable Roberto Rojo MD Unavailable Jatin Gamble MD Unavailable Lyndsey Fagan NP Unavailable Erlin Servin MD Unavailable Julian Valdez MD Unavailable Encounter Details Date Type Department Care Team (Late st Contact Info) Description 09/07/2024 Orders Only [facility] [address] [facility] [address] [place] [address] Hermelindo Butler MD [address] DIV IM BONE MARROW TRANSPLANT, [address] [place] [address] Social History Tobacco Use Types Packs/Day Years [...] on file 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 Gender Identity Not on file Sexual Orientation Not on file documented as of this encounter Plan of Treatment Not on file documented as of this encounter Visit Diagnoses Not on filedocumented in this encounter Care Teams Shell Trim Tool Setter Relationship Specialty Start Date End Date Jatin Gamble MD [address] [place] [address] PCP - General 10/07/16 Hermelindo Butler MD [address] [place] [address] [facility] 12/02/17 Roberto Rojo MD [address] [place] [address] [facility] H[facility] and Oncology 12/02/17 Jatin Gamble MD [address] [place] [address] Referring Physician Internal Medicine 12/02/17 Lyndsey Fagan NP [address] [place] [address] Nurse Practitioner Medical Oncology 08/03/20 Erlin Servin MD [address] [place] [address] Consulting Physician Otolaryngology 10/04/22 [place] [address] [place] [address] Consulting Physician Urology 05/28/23 documented as of this encounter
--- OUTSIDE RECORDS SUMMARY | 2024-09-09 17:10 | XMS_ITS | Continuity of Care Document ---
Author Organization [facility] [employer] [facility] Address [address] [facility] [address] [place] [address] Phone Care Team Providers Care Pipe Layer Name Role Phone Cesar Vora MD, FACS [...] ER 100 mg tablet,extended release - Active [place] 5 mg-325 mg tablet take 1 tablet [...] Copied on Encounter Office/outpa tient Visit, [facility] [place], [address] [place] [address] [address], [place], [place], [address], [place] tel:[phone] SEC [place] Eyelid infections (chief complaint) Episcleritis of left eyeOther vitreous opacities, bilateralOth er visual disturbances 2 Vielka Cesar. [address] [facility], [address], [place], [place], [address], [place]. tel:[phone] Specialist: Hermelindo Lopez MD, [address] [facility] [address], [place], [address]. tel:[phone] Provider: Vicky Ray OD, [address] [facility], [place], [address]. tel:[phone] [facility] [place], [address], [place], [place], [address], [place] tel:[phone] SEC [place] Professional yag pc OS evaluation (chief complaint) Bilateral artificial lens implantOther secondary cataract, left eyeCyst of right eyelidPVD (posterior vitreous detachment), left eyeBilateral ocular hypertension Oct-1 8 Jose R Franco. [address] [facility], [address], [place], [place], [address], [place]. tel:[phone] Referring Provider: Michele Orellana OD A, [address] [place] [address] Eye [facility], [place], [address]. tel:[phone] [facility] Eye [facility], [address] [place], [place] [address]cre[address], [place], [place], [address], [place] tel:[phone] SEC Steven Sifuentes Yag PC Eval (chief complaint) No Information 7 Vielka Cesar. [address] [place], [place] [address]Dr. TATTOFF, [address], [place], [place], [address], [place]. tel:[phone] Referring Provider: Michele Orellana OD A, [address] [place] [address], [place], [address]. tel:[phone] [facility] [employer] [facility], [address] [employer] [address], [place], [place], [address], [place] tel:[phone] SEC [place] Petrona Coybienvenidorosalio No Information 7 [place] Cesar. [facility] [employer], [address], [place], [place], [address], [place]. tel:[phone] [facility], [facility] [employer] [address], [place], [place], [address], [place] tel:[phone] [facility] No Information 5 Vielka Cesar. [facility] [employer], [address], [place], [place], [address], [place]. tel:[phone] Referring Provider: Michele Orellana OD A, [address] [place] [address], [place], [address]. tel:[phone] [facility] [employer] [facility], [address] [place] [address] [address], [place], [place], [address], [place] tel:[phone] SEC Steven N Bear No Information 5 Vielka Guerrero. [address] [address] [facility], [address], [place], [place], [address], [place]. tel:[phone] Referring Provider: Michele Acevedo, [address] [facility] Eye [facility], [place], [address]. tel:[phone] [facility] [place], [address] [place] [address] [address], [place], [place], [address], [place] tel:[phone] [facility] No Information 5 Vielka Guerrero. [facility] [employer] [facility], [address], [place], [place], [address], [place]. tel:[phone] Referring Provider: Michele Acevedo, [address] [facility], [place], [address]. tel:[phone] [facility] [place], [address] [place] [address] [address], [place], [place], [address], [place] tel:[phone] SEC [place] N Bear Cataract Evaluation (chief complaint) No Information 5 Vielka Guerrero. [address] [place] [address] [facility], [address], [place], [place], [address], [place]. tel:[phone] Referring Provider: Michele Acevedo, [address] [place], [address]. tel:[phone] Family History Family Member Type Diagnosis Age At Onset Mother Problem (finding) diabetes melli tus in first degree relative Mother Problem (finding) glaucoma Payers Payer name Insurance type Covered green party ID Authoriza tion(s) [place] [id number] [employer] Mdcr Supp CI [id number] Social History Type Description Quantity Date Captured [...]
--- OUTSIDE RECORDS SUMMARY | 2024-09-09 17:10 | XMS_ITS | Encounter Summary ---
Author Organization [facility] Address [address] [place] [address] Phone Care Team Providers Care Garland Machine Operator Name Role Phone Jatin Gamble MD Primary Care Provider [phone] Hermelindo Butler MD Unavailable Roberto Rojo MD Unavailable Jatin Gamble MD Unavailable Garry Dukes MD Unavailable [phone] Lyndsey Fagan NP Unavailable [phone] Erlin Servin MD Unavailable Julian Valdez MD Unavailable [phone] Encounter Details Date Type Department Care Team (Latest Contact Info) Description 10/16/2017 Orders Only [facility] CONVERSION Scanning, Provider Social History Tobacco Use Types Packs/Day Years Used Date Smoking Tobacco: Never Assessed Sex and Gender Information Value Date Recorded Sex Assigned at Not on file 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 Medical Oncology 12/02/17 Roberto Rojo MD [address] [place] [address] Medical Oncologist/H[facility]ologchristus [facility] Hematology and Oncology 12/02/17 Jatin Gamble MD [address] [place] [address] Referring Physician Internal Medicine 12/02/17 Garry Dukes MD [address] [place], [place] [id number] Referring Physician Urology 12/02/17 05/27/23 Lyndsey Fagan NP [address] [place] [address] Nurse Practitioner Medical Oncology 08/03/20 Erlin Servin MD [address] [place] [address] Consulting Physician Otolaryngology 10/04/22 [place] [address] [place] [address] Consulting Physician Urology 05/28/23 documented as of this encounter
--- OUTSIDE RECORDS SUMMARY | 2024-09-09 17:11 | XMS_ITS | Referral Summary ---
Author Organization [facility] Address [address] [place] [address] Care Team Providers Care Zinc Plate Grainer Name Role Phone Jatin Gamble MD Primary Care Provider Hremelindo Butler MD Unavailable Roberto Rojo MD Unavailable [phone] Jatin Gamble MD Unavailable [phone] Lyndsey Fagan NP Unavailable Erlin Servin MD Unavailable [phone] Julian Valdez MD Unavailable Encounters Date Type Department Care Team Description 09/07/[address] [facility] [address] [phone] Hermelindo Hill MD 09/06/[address] [facility] Transplant [address] [place] [phone] Lyndsey Fagan NP 08/31/2024 8:45 AM CDT Clinical Support [facility] - Lab Collection [facility] [address] [place] [address] Multiple myeloma in relapse (HCC); Multiple myeloma not having achieved remission (HCC); Multiple myeloma, remission status unspecified (HCC) 08/31/2024 10:00 AM CDT Infusion [facility] - Infusion [address] [facility] Floor [address] [place] [address] Multiple myeloma in relapse (HCC) (Primary Dx); Multiple myeloma in remission (HCC) 08/31/2024 9:00 AM CDT Office Visit [facility] 6 [place] [address] Hermelindo Hill MD Multiple myeloma in relapse (HCC) (Primary Dx); Multiple myeloma in remission (HCC) 08/31/2024 8:15 AM CDT Clinical Support [facility] Oncology Lab [facility] [address] [place] [address] Multiple myeloma not having achieved remission (HCC); Multiple myeloma in remission (HCC) 08/30/2024 Orders Only [facility] Scanning, Provider 08/27/2024 Documentation Nephrology Ani Anne LCSW 08/27/[address] [facility] Transplant [address] [place] [address] 6 [place] [address] Hermelindo Hill MD Multiple myeloma not having achieved remission (HCC) (Primary Dx); JOHN (acute kidney injury) 08/23/2024 11:13 PM CDT - 08/26/2024 4:50 PM CDT Hospital Encounter [address] [phone] Hermelindo Hill MD [place], Thabet J.M., MD JOHN (acute kidney injury) (Primary Dx) Discharge Disposition: Discharge to home or self care 08/25/2024 6:50 AM CDT Ancillary Procedure [facility] Vascular Lab IP [address] [facility] [address] [place] [address] 08/23/2024 7:10 PM CDT - 08/23/2024 11:59 PM CDT Hospital Encounter [facility] Radiology [address] [place] [address] Discharge Disposition: Discharge to home or self care 08/23/2024 Orders Only [address] [phone] Hermelindo Hill MD 08/23/[address] [facility] Transplant [address] [place] [phone] Hermelindo Hill MD Multiple myeloma, remission status unspecified (HCC) (Primary Dx) 08/23/2024 5:24 PM CDT - 08/23/2024 11:59 PM CDT Hospital Encounter [facility] [address] [place] [phone] Hermelindo Hill MD Elevated serum creatinine (Primary Dx); Multiple myeloma, remission status unspecified (HCC) Discharge Disposition: Discharge to home or self care 08/20/2024 Orders Only [facility] Scanning, Provider 08/10/2024 Orders Only [facility] Scanning, Provider 08/06/[address] [facility] Transplant [address] [place] [phone] Lyndsey Fagan NP 08/06/[address] [facility] Transplant [address] [place] [phone] Lyndsey Fagan NP Multiple myeloma, remission status unspecified (HCC) (Primary Dx) 08/06/2024 1:45 PM WASTE DISPOSAL LEAKAGE TESTER Clinical Support [facility] - Lab Collection [address] [place] [address] 08/06/2024 1:00 PM WASTE DISPOSAL LEAKAGE TESTER - 08/06/2024 11:59 PM WASTE DISPOSAL LEAKAGE TESTER Hospital Encounter [facility] Radiology [address] [place] [address] Multiple myeloma, remission status unspecified (HCC) Discharge Disposition: Discharge to home or self care 08/06/[address] [facility] Marrow Transplant [address] [place] [phone] Lyndsey Fagan NP JOHN (acute kidney injury) (Primary Dx) 08/06/[address] [facility] Bone Marrow Transplant [address] [facility] Floor 6 [place] [address] Hermelindo Hill MD Multiple myeloma, remission status unspecified (HCC) (Primary Dx) 08/06/2024 7:15 AM WASTE DISPOSAL LEAKAGE TESTER Clinical Support [facility] - Lab Collection [address] [place] [address] Multiple myeloma in relapse (HCC) (Primary Dx); Multiple myeloma, remission status unspecified (HCC); JOHN (acute kidney injury) 08/06/2024 8:00 AM WASTE DISPOSAL LEAKAGE TESTER Infusion [facility] - Infusion [address] [place] [address] Multiple myeloma not having achieved remission (HCC) (Primary Dx); Hypogammaglobuline hakeem 08/03/[address] [facility] [address] [phone] Hermelindo Hill MD 08/03/[address] [facility] Marrow Transplant [address] [place] [phone] Hermelindo Hill MD 08/03/[address] [facility]row Transplant [address] [place] [phone] Hermelindo Hill MD 08/03/2024 9:30 AM WASTE DISPOSAL LEAKAGE TESTER Infusion [facility] - Infusion [address] [place] [address] Multiple myeloma in relapse (HCC) (Primary Dx); Multiple myeloma in remission (HCC) 08/03/2024 7:30 AM WASTE DISPOSAL LEAKAGE TESTER Clinical Support [facility] - Lab Collection [facility] [address] [place] [address] Multiple myeloma in remission (HCC); Multiple myeloma, remission status unspecified (HCC); Multiple myeloma in relapse (HCC) 08/03/2024 8:30 AM WASTE DISPOSAL LEAKAGE TESTER Office Visit [facility] Bone Marrow Transplant [address] [place] [address] 6 [place] [address] Hermelindo Hill MD Multiple myeloma, remission status unspecified (HCC) (Primary Dx); Multiple myeloma in remission (HCC); Multiple myeloma in relapse (HCC) 08/02/[address] [facility] Marrow Transplant [address] [place] [phone] Lyndsey Fagan NP 07/30/[address] [facility] Marrow Transplant [address] [place] [phone] Hermelindo Hill MD 07/27/[address] [facility] Marrow Transplant [address] [place] [phone] Hermelindo Hill MD 07/26/[address] [facility]row Transplant [address] [place] [phone] Hermelindo Hill MD 07/26/[address] [facility]row Transplant [address] [place] [phone] Hermelindo Hill MD 07/26/[address] [facility]row Transplant [address] [place] [phone] Margaret Kay RMA Medical Question/Miscellan eous 07/13/[address] [facility] Marrow Transplant [address] [place] [phone] Fadumo Tobar RN 07/13/2024 10:00 AM WASTE DISPOSAL LEAKAGE TESTER Infusion [facility] - Infusion [address] [facility] Floor [address] [place] [address] Multiple myeloma in relapse (HCC) (Primary Dx); Multiple myeloma in remission (HCC) 07/13/2024 8:00 AM WASTE DISPOSAL LEAKAGE TESTER Clinical Support [facility] - Lab Collection [address] [facility] [address] [place] [address] Multiple myeloma in remission (HCC); Multiple myeloma in relapse (HCC); Multiple myeloma, remission status unspecified (HCC) 07/13/2024 9:00 AM WASTE DISPOSAL LEAKAGE TESTER Office Visit [facility] Bone Marrow Transplant [address] [place] [phone] Hermelindo Hill MD Multiple myeloma, remission status unspecified (HCC) (Primary Dx); Multiple myeloma in remission (HCC); Hypogammaglobuline hakeem 06/22/[address] [facility] Bone Marrow Transplant [address] [place] [phone] Hermelindo Hill MD 06/22/[address] [facility] Bone Marrow Transplant [address] [place] [phone] Hermelindo Hill MD Multiple myeloma in remission (HCC) (Primary Dx); Multiple myeloma in relapse (HCC) 06/22/2024 8:30 AM WASTE DISPOSAL LEAKAGE TESTER Infusion [facility] - Infusion [address] [place] [address] Multiple myeloma, remission status unspecified (HCC) (Primary Dx); Multiple myeloma in remission (HCC); Multiple myeloma in relapse (HCC) 06/22/2024 7:00 AM WASTE DISPOSAL LEAKAGE TESTER Clinical Support [facility] - Lab Collection [address] [place] [address] Multiple myeloma, remission status unspecified (HCC); Multiple myeloma in relapse (HCC) 06/22/2024 8:00 AM WASTE DISPOSAL LEAKAGE TESTER Office Visit [facility] Bone Marrow Transplant [address] [place] [phone] Hermelindo Hill MD Multiple myeloma in relapse (HCC) (Primary Dx); Multiple myeloma, remission status unspecified (HCC); Hypogammaglobuline hakeem; Obesity, morbid (HCC) 06/14/[address] [facility] Bone Marrow Transplant [address] [place] [phone] Margaret Kay, NAHUN Reschedule from Last 3 Months Allergies Active [...] daily 30 tablet 6 12/16/19 24 Active acyclovir (ZOVIRAX) 400 mg tabletIndicatio ns:Multiple [...] 5 mg tablet 02/26/20 23 025 Discontinued clobetasoL (TEMOVATE) 0.05 % creamIndication s:Multiple myeloma in remission (HCC) Apply topically 2 (two) times a day 60 g 3 08/03/19 25 025 cefpodoxime (VANTIN) 200 mg tabletIndicatio ns:Multiple myeloma in remission (HCC) Take 1 tablet (200 mg total) by mouth 2 (two) times a day for 7 days 14 tablet 08/03/19 25 025 Active Problems Patient Care Coordination No te Formatting of this note is d ifferent from the original. BMT Inpatient Care Coordination Overview Diagnosis [place] [address] Treatment Plan Clinical Trial [id number] [facility] Reason for Admission JOHN [...] Medical Assistants Post-Discharge Follow-Up Living Situation/Distance from [place], [place] (45 min) Caregiver Self, Lab/Transfusion Frequency Phone: Fax: Venous Access & Care implanted vascular device Local Oncologist Contact Phone: Fax: Post-Discharge Office Visit (H30) [facility] 08/31 Miscellaneous Notes: Problem Noted Date Diagnosed [...] is a risk of orbital injury and PEER SPECIALIST injury which could result in blindness or [...] this. Assessment & Plan (07/09/2022 7:42 PM WASTE DISPOSAL LEAKAGE TESTER): I talked with him quite a bit [...] weeks. Assessment & Plan (05/26/2022 4:16 PM WASTE DISPOSAL LEAKAGE TESTER): He does have pretty significant sinusitis and [...] day. Assessment & Plan (05/26/2022 4:17 PM WASTE DISPOSAL LEAKAGE TESTER): It is very possible that his cough could be due to sinusitis also. Hopefully that will continue to improve as we treat. He understands. Immunocompromised 11/13/2021 Multiple myeloma not having achieved remission 0 10/28/2021 Cancer Staging:Clinical stage from 10/16/2021:RISS Stage II([id number]-6-yviuzkpufnpkc (mg/L): 3.7, Albumin (g/dL): 4.2, ISS: Stage [...] and Dexamethasone in June 2021 Clinical trial [id number] initiated on 10/29/21; C46D1 08/03/24. BMT following [...] he got a TTE on 10/19 at [facility] however unclear why not currently in the system - May need to repeat TTE prior to treatment if results unavailable - Continue OI ppx with acyclovir 400mg BID - Begin trial [id number], a Bispecific Antibody Targeting BCMA treatment - Followed by Dr. Btuler - BMT Oncology following; appreciate recommendations Assessment [...] he got a TTE on 10/19 at [facility] however unclear why not currently in the system - May need to repeat TTE prior to treatment if results unavailable - Continue OI ppx with acyclovir 400mg BID - Begin trial [id number], a Bispecific Antibody Targeting BCMA treatment - [...] BID Assessment & Plan (05/31/2021 10:51 AM WASTE DISPOSAL LEAKAGE TESTER): Continue home pepcid, asx Renal mass 05/30/2021 Assessment & Plan (05/31/2021 10:51 AM WASTE DISPOSAL LEAKAGE TESTER): Admitted for observation after L renal mass [...] 07/17/2023 Assessment & Plan (05/31/2021 10:52 AM WASTE DISPOSAL LEAKAGE TESTER): Follows with oncology on daratumumab monotherapy -counts [...] blood in urine Follow up pathology from zacidoiae-jde-vrjehwyd high-grade papillary urothelial carcinoma (grade 2) --follow [...] blood in urine Follow up pathology from wrkvlvbxr-bbt-uojlmxxf high-grade papillary urothelial carcinoma (grade 2) --follow [...] supplementation Assessment & Plan (05/31/2021 10:51 AM WASTE DISPOSAL LEAKAGE TESTER): Stable on home losartan, nebivolol, triamterene-HCTZ Secondary [...] on file Legal Sex 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 WASTE DISPOSAL LEAKAGE TESTER Gender Identity Not on file Sexual Orientation Not on file Last Filed Vital Signs Vital Sign Reading Time Taken Comments Blood Pressure 120/79 08/31/2024 8:26 AM CDT Pulse 70 08/31/2024 8:26 AM CDT Temperature 36.6 C (97.9 F) 08/31/2024 8:26 AM CDT Respiratory Rate 18 08/31/2024 8:26 AM CDT Oxygen Saturation 99% 08/31/2024 8:26 AM CDT Inhaled Oxygen Concentration - - Weight 124.7 kg (275 lb) 08/31/2024 8:26 AM CDT Height 175.3 cm (5' 9.02 ) 08/23/2024 11:15 PM C DT Body Mass Index 40.59 08/23/2024 11:15 PM CDT Plan of Treatment Not on file Medical Devices Implanted Type Area Community Arts Worker Device Identifier Shelf Expiration Date Model / Serial / Lot Other - See Comments Other - see comments Right: Chest Wall Description:Upon arrival to IR, not accessed Procedures Procedure Name Priority Date/Time Associated Diagnosis Comments DIFFERENTIAL AUTO STAT 08/31/2024 8:1 2 AM CDT Multiple myeloma in relapse (HCC) TYPE AND SCREEN STAT 08/31/2024 8:12 AM CDT Multiple myeloma not having achieved remission (HCC) CBC WITH AUTO DIFFERENTIAL STAT 08/31/2024 8:12 AM CDT Multiple myeloma in relapse (HCC) EGFR STAT 08/31/2024 8:12 AM CDT Multiple myeloma in relapse (HCC) IGA Routine 08/31/2024 8:12 AM CDT Multiple myeloma, remission status unspecified (HCC) IGG Routine 08/31/2024 8:12 AM CDT Multiple myeloma, remission status unspecified (HCC) IGM Routine 08/31/2024 8:12 AM CDT Multiple myeloma, remission status unspecified (HCC) IMMUNOGLOBULIN FREE LIGHT CHAINS Routine 08/31/2024 8:12 AM CDT Multiple myeloma, remission status unspecified (HCC) PROTEIN ELECTROPHORESIS, WITH REFLEX, SERUM Routine 08/31/2024 8:12 AM CDT Multiple myeloma, remission status unspecified (HCC) IMMUNOTYPING Routine 08/31/2024 8:12 AM CDT Multiple myeloma, remission status unspecified (HCC) COMPREHENSIVE METABOLIC PANEL STAT 08/31/2024 8:12 AM CDT Multiple myeloma in relapse (HCC) MAGNESIUM STAT 08/31/2024 8:12 AM CDT Multiple myeloma in relapse (HCC) GAMMA GT STAT 08/31/2024 8:12 AM CDT Multiple myeloma in relapse (HCC) PROTIME-INR STAT 08/31/2024 8:12 AM CDT Multiple myeloma in relapse (HCC) APTT STAT 08/31/2024 8:12 AM CDT Multiple myeloma in relapse (HCC) LACTATE DEHYDROGENASE Routine 08/31/2024 8:12 AM CDT Multiple myeloma in relapse (HCC) SCAN - LABS 08/30/2024 EGFR Routine 08/26/2024 12:25 AM CDT DIFFERENTIAL [...] Read Routine (OP Routine) 08/06/2024 2:42 PM WASTE DISPOSAL LEAKAGE TESTER Multiple myeloma, remission status unspecified (HCC) URINALYSIS, MICROSCOPIC ONLY Routine 08/06/2024 9:19 AM WASTE DISPOSAL LEAKAGE TESTER JOHN (acute kidney injury) PROTEIN / CREATININE RATIO, URINE, RANDOM Routine 08/06/2024 9:19 AM WASTE DISPOSAL LEAKAGE TESTER JOHN (acute kidney injury) URINALYSIS AND REFLEX TO MICROSCOPIC Routine 08/06/2024 9:19 AM WASTE DISPOSAL LEAKAGE TESTER JOHN (acute kidney injury) EGFR Routine 08/06/2024 7:43 AM WASTE DISPOSAL LEAKAGE TESTER Multiple myeloma, remission status unspecified (HCC) DIFFERENTIAL AUTO Routine 08/06/2024 7:4 3 AM WASTE DISPOSAL LEAKAGE TESTER Multiple myeloma, remission status unspecified (HCC) LACTATE DEHYDROGENASE Routine 08/06/2024 7:43 AM WASTE DISPOSAL LEAKAGE TESTER Multiple myeloma, remission status unspecified (HCC) CBC WITH AUTO DIFFERENTIAL Routine 08/06/2024 7:43 AM WASTE DISPOSAL LEAKAGE TESTER Multiple myeloma, remission status unspecified (HCC) COMPREHENSIVE METABOLIC PANEL Routine 08/06/2024 7:43 AM WASTE DISPOSAL LEAKAGE TESTER Multiple myeloma, remission status unspecified (HCC) LIPID PANEL Routine 08/06/2024 7:43 AM WASTE DISPOSAL LEAKAGE TESTER Multiple myeloma, remission status unspecified (HCC) PSA DIAGNOSTIC Routine 08/06/2024 7:43 AM WASTE DISPOSAL LEAKAGE TESTER Multiple myeloma, remission status unspecified (HCC) PROTIME-INR STAT 08/03/2024 9:21 AM WASTE DISPOSAL LEAKAGE TESTER Multiple myeloma in relapse (HCC) APTT STAT 08/03/2024 9:21 AM WASTE DISPOSAL LEAKAGE TESTER Multiple myeloma in relapse (HCC) MAGNESIUM STAT 08/03/2024 7:40 AM WASTE DISPOSAL LEAKAGE TESTER Multiple myeloma in relapse (HCC) GAMMA GT STAT 08/03/2024 7:40 AM WASTE DISPOSAL LEAKAGE TESTER Multiple myeloma in relapse (HCC) EGFR Routine 08/03/2024 7:40 AM WASTE DISPOSAL LEAKAGE TESTER Multiple myeloma, remission status unspecified (HCC) DIFFERENTIAL AUTO Routine 08/03/2024 7:4 0 AM WASTE DISPOSAL LEAKAGE TESTER Multiple myeloma, remission status unspecified (HCC) CBC WITH AUTO DIFFERENTIAL Routine 08/03/2024 7:40 AM WASTE DISPOSAL LEAKAGE TESTER Multiple myeloma, remission status unspecified (HCC) COMPREHENSIVE METABOLIC PANEL Routine 08/03/2024 7:40 AM WASTE DISPOSAL LEAKAGE TESTER Multiple myeloma, remission status unspecified (HCC) IGA Routine 08/03/2024 7:40 AM WASTE DISPOSAL LEAKAGE TESTER Multiple myeloma, remission status unspecified (HCC) IGG Routine 08/03/2024 7:40 AM WASTE DISPOSAL LEAKAGE TESTER Multiple myeloma, remission status unspecified (HCC) IGM Routine 08/03/2024 7:40 AM WASTE DISPOSAL LEAKAGE TESTER Multiple myeloma, remission status unspecified (HCC) IMMUNOGLOBULIN FREE LIGHT CHAINS Routine 08/03/2024 7:40 AM WASTE DISPOSAL LEAKAGE TESTER Multiple myeloma, remission status unspecified (HCC) LACTATE DEHYDROGENASE Routine 08/03/2024 7:40 AM WASTE DISPOSAL LEAKAGE TESTER Multiple myeloma, remission status unspecified (HCC) PROTEIN ELECTROPHORESIS, WITH REFLEX, SERUM Routine 08/03/2024 7:40 AM WASTE DISPOSAL LEAKAGE TESTER Multiple myeloma, remission status unspecified (HCC) IMMUNOTYPING Routine 08/03/2024 7:40 AM WASTE DISPOSAL LEAKAGE TESTER Multiple myeloma, remission status unspecified (HCC) HEMOGLOBIN A1C Routine 08/03/2024 7:40 AM WASTE DISPOSAL LEAKAGE TESTER Multiple myeloma, remission status unspecified (HCC) URINALYSIS, MICROSCOPIC ONLY Routine 08/03/2024 7:30 AM WASTE DISPOSAL LEAKAGE TESTER Multiple myeloma, remission status unspecified (HCC) URINE CULTURE Routine 08/03/2024 7:30 AM WASTE DISPOSAL LEAKAGE TESTER URINALYSIS AND REFLEX TO MICROSCOPIC AND CULTURE Routine 08/03/2024 7:30 AM WASTE DISPOSAL LEAKAGE TESTER Multiple myeloma, remission status unspecified (HCC) EGFR STAT 07/13/2024 7:40 AM WASTE DISPOSAL LEAKAGE TESTER Multiple myeloma in relapse (HCC) DIFFERENTIAL AUTO STAT 07/13/2024 7:4 0 AM WASTE DISPOSAL LEAKAGE TESTER Multiple myeloma in relapse (HCC) IGA Routine 07/13/2024 7:40 AM WASTE DISPOSAL LEAKAGE TESTER Multiple myeloma, remission status unspecified (HCC) IGG Routine 07/13/2024 7:40 AM WASTE DISPOSAL LEAKAGE TESTER Multiple myeloma, remission status unspecified (HCC) IGM Routine 07/13/2024 7:40 AM WASTE DISPOSAL LEAKAGE TESTER Multiple myeloma, remission status unspecified (HCC) IMMUNOGLOBULIN FREE LIGHT CHAINS Routine 07/13/2024 7:40 AM WASTE DISPOSAL LEAKAGE TESTER Multiple myeloma, remission status unspecified (HCC) PROTEIN ELECTROPHORESIS, WITH REFLEX, SERUM Routine 07/13/2024 7:40 AM WASTE DISPOSAL LEAKAGE TESTER Multiple myeloma, remission status unspecified (HCC) IMMUNOTYPING Routine 07/13/2024 7:40 AM WASTE DISPOSAL LEAKAGE TESTER Multiple myeloma, remission status unspecified (HCC) LACTATE DEHYDROGENASE Routine 07/13/2024 7:40 AM WASTE DISPOSAL LEAKAGE TESTER Multiple myeloma in relapse (HCC) GAMMA GT STAT 07/13/2024 7:40 AM WASTE DISPOSAL LEAKAGE TESTER Multiple myeloma in relapse (HCC) MAGNESIUM STAT 07/13/2024 7:40 AM WASTE DISPOSAL LEAKAGE TESTER Multiple myeloma in relapse (HCC) COMPREHENSIVE METABOLIC PANEL STAT 07/13/2024 7:40 AM WASTE DISPOSAL LEAKAGE TESTER Multiple myeloma in relapse (HCC) CBC WITH AUTO DIFFERENTIAL STAT 07/13/2024 7:40 AM WASTE DISPOSAL LEAKAGE TESTER Multiple myeloma in relapse (HCC) APTT STAT 07/13/2024 7:24 AM WASTE DISPOSAL LEAKAGE TESTER Multiple myeloma in relapse (HCC) PROTIME-INR STAT 07/13/2024 7:24 AM WASTE DISPOSAL LEAKAGE TESTER Multiple myeloma in relapse (HCC) IMMUNOTYPING Routine 06/22/2024 7:20 AM WASTE DISPOSAL LEAKAGE TESTER Multiple myeloma, remission status unspecified (HCC) EGFR Routine 06/22/2024 7:20 AM WASTE DISPOSAL LEAKAGE TESTER Multiple myeloma, remission status unspecified (HCC) DIFFERENTIAL AUTO Routine 06/22/2024 7:2 0 AM WASTE DISPOSAL LEAKAGE TESTER Multiple myeloma, remission status unspecified (HCC) CBC WITH AUTO DIFFERENTIAL Routine 06/22/2024 7:20 AM WASTE DISPOSAL LEAKAGE TESTER Multiple myeloma, remission status unspecified (HCC) COMPREHENSIVE METABOLIC PANEL Routine 06/22/2024 7:20 AM WASTE DISPOSAL LEAKAGE TESTER Multiple myeloma, remission status unspecified (HCC) IGA Routine 06/22/2024 7:20 AM WASTE DISPOSAL LEAKAGE TESTER Multiple myeloma, remission status unspecified (HCC) IGG Routine 06/22/2024 7:20 AM WASTE DISPOSAL LEAKAGE TESTER Multiple myeloma, remission status unspecified (HCC) IGM Routine 06/22/2024 7:20 AM WASTE DISPOSAL LEAKAGE TESTER Multiple myeloma, remission status unspecified (HCC) IMMUNOGLOBULIN FREE LIGHT CHAINS Routine 06/22/2024 7:20 AM WASTE DISPOSAL LEAKAGE TESTER Multiple myeloma, remission status unspecified (HCC) LACTATE DEHYDROGENASE Routine 06/22/2024 7:20 AM WASTE DISPOSAL LEAKAGE TESTER Multiple myeloma, remission status unspecified (HCC) PROTEIN ELECTROPHORESIS, WITH REFLEX, SERUM Routine 06/22/2024 7:20 AM WASTE DISPOSAL LEAKAGE TESTER Multiple myeloma, remission status unspecified (HCC) MAGNESIUM STAT 06/22/2024 7:20 AM WASTE DISPOSAL LEAKAGE TESTER Multiple myeloma in relapse (HCC) GAMMA GT STAT 06/22/2024 7:20 AM WASTE DISPOSAL LEAKAGE TESTER Multiple myeloma in relapse (HCC) PROTIME-INR STAT 06/22/2024 7:20 AM WASTE DISPOSAL LEAKAGE TESTER Multiple myeloma in relapse (HCC) APTT STAT 06/22/2024 7:20 AM WASTE DISPOSAL LEAKAGE TESTER Multiple myeloma in relapse (HCC) HEPATITIS C ANTIBODY STAT 10/16/2021 9:50 AM CDT Multiple myeloma in relapse (HCC) from Last 3 Months or Most Recently Relevant to Health Maintenance Results * Differential, auto (08/31/2024 8:12 AM CDT) Neutrophil abs 6.0 1.5 - 6.5 K/cumm Comment:Testing performed by : [facility], [address] [place] [phone] Lymphocyte abs 1.0 0.8 - 3.3 K/cumm [facility] Comment:Testing performed by : [facility], [address] [place] [phone] Monocyte abs 0.6 0.2 - 0.8 K/cumm [facility] Comment:Testing performed by : [facility], [address] [place] [phone] Eosinophil abs 0.3 0.0 - 0.5 K/cumm [facility] Comment:Testing performed by : [facility], [address] [place] [phone] Basophil abs 0.1 0.0 - 0.1 K/cumm [facility] Comment:Testing performed by : [facility], [address] [place] [phone] Neutrophil pct 75.2 % [facility] Comment: Interpretive Data Percent cell count reference ranges are not reported, since discordance with absolute values may lead to misinterpretation of CBC data. Current Interpretive Data was last revised on 2017. Testing performed by: [facility], [address] [place] [phone] Lymphocyte pct 12.4 % [facility] Comment: Interpretive Data Percent cell count reference ranges are not reported, since discordance with absolute values may lead to misinterpretation of CBC data. Current Interpretive Data was last revised on 2017. Testing performed by: [facility], [address] [place] [phone] Monocyte pct 7.9 % [facility] Comment: Interpretive Data Percent cell count reference ranges are not reported, since discordance with absolute values may lead to misinterpretation of CBC data. Current Interpretive Data was last revised on 2017. Testing performed by: [facility], [address] [place] [phone] Eosinophil pct 3.9 % [facility] Comment: Interpretive Data Percent cell count reference ranges are not reported, since discordance with absolute values may lead to misinterpretation of CBC data. Current Interpretive Data was last revised on 2017. Testing performed by: [facility], [address] [place] [address] Basophil pct 0.6 % MT SUAREZ Comment: Interpretive Data Percent cell count reference ranges are not reported, since discordance with absolute values may lead to misinterpretation of CBC data. Current Interpretive Data was last revised on 2017. Testing performed by: [facility], [address] [place] [address] Blood 08/31/2024 8:12 AM CDT 08/31/2024 8:16 AM CDT Hermelindo Butler MD LAB BLOOD ORDER ELANA Final Result MT SUAREZ [facility] Department [place] [address] * (ABNORMAL) CBC with auto differential (08/31/2024 8:12 AM CDT) WBC 8.0 3.8 - 9.9 K/cumm Comment:Testing performed by : [facility], [address] [place] [address] Hgb 12.7(L) 13.0 - 17.5 g/dL MT SUAREZ Comment:Testing performed by : [facility], [address] [place] [address] Hct 37.8(L) 38.9 - 50.3 % MT SUAREZ Comment:Testing performed by : [facility], [address] [place] [address] Plt 176 150 - 400 K/cumm MT SUAREZ Comment:Testing performed by : [facility], [address] [place] [address] MPV 7.7 6.8 - 10.4 fL MT SUAREZ Comment:Testing performed by : [facility], [address] [place] [address] RBC 4.07(L) 4.30 - 5.80 M/cumm MT SUAREZ Comment:Testing performed by : [facility], [address] [place] [phone] MCV 92.8 81.3 - 96.4 fL MT SUAREZ Comment:Testing performed by : [facility], [address] [place], [place] [phone] MCH 31.2 27.1 - 33.3 pg MT SUAREZ Comment:Testing performed by : [facility], [address] [place], [place] [phone] MCHC 33.6 32.3 - 35.7 g/dL MT SUAREZ Comment:Testing performed by : [facility], [address] [place], [place] [phone] RDW CV 16.1(H) 11.1 - 14.9 % MT SUAREZ Comment:Testing performed by : [facility], [address] [place], [place] [phone] NRBC abs 0.00 0.00 - 0.01 K/cumm MT SUAREZ Comment:Testing performed by : [facility], [address] [place], [place] [phone] Blood 08/31/2024 8:12 AM CDT 08/31/2024 8:16 AM CDT Hermelindo Butler MD LAB BLOOD ORDER ELANA Final Result MT SUAREZ [facility] Department [place] [address] * Type and screen (08/31/2024 8:12 AM CDT) ABO Rh A Positive Yehuda, indirect Negative MT SUAREZ Comment:Patient has previous antibody history Blood 08/31/2024 8:12 AM CDT 08/31/2024 8:25 AM CDT Narrative MT SUAREZ - 08/31/2024 9:28 AM CDT Has the patient had Daratumumab or Isatuximab in the past 6 months?->Unknown Hermelindo Butler MD LAB BLOOD BANK TEST ORDERABLES Final Result Performing Organization Address City/[facility] Co de Phone Number [facility] [place] [address] * Immunotyping, serum with interpretation (08/31/2024 8:12 AM CDT) Immunosubtraction Please see comment Comment: NO PARAPROTEIN DETECTED Reviewed and signed by Ivan Sims MD, PhD 09/01/2024 Blood 08/31/2024 8:12 AM CDT 08/31/2024 9:34 AM CDT Hermelindo Butler MD LAB BLOOD ORDER ELANA Final Result Performing Organization Address [facility] de Phone Number [facility] Department [place] [address] * (ABNORMAL) eGFR (08/31/2024 8:12 AM CDT) Pathologist [facility] eGFR 45(L) >=60 mL/min/1. 73 m2 Comment: Interpretive Data [...] interpretive data was last reviewed 2021. Blood 08/31/2024 8:12 AM CDT 08/31/2024 8:20 AM CDT Hermelindo Butler MD LAB BLOOD ORDER ELANA Final Result Performing Organization Address City/[facility] Co de Phone Number [facility] Department [place] [address] * (ABNORMAL) Immunoglobulin free light chains (08/31/2024 8:12 AM CDT) [place]/Lambda ratio [facility] See Comment 0.26 - 1.65 Comment: Unable to calculate exact result. Interpretive Data The Binding Site FreeLite assay procedure was used. Results from different manufacturers or methods may not be comparable. Serial testing should be performed using the same methods and instrumentation. Current Interpretive Data was last revised on 2023. [place] free light chain [facility] <0.06(L) 0.33 - 1.94 mg/dL [facility] Comment: Interpretive Data The Binding Site FreeLite assay procedure was used. Results from different manufacturers or methods may not be comparable. Serial testing should be performed using the same methods and instrumentation. Current Interpretive Data was last revised on 2023. [place] free light chain [facility] <0.14(L) 0.57 - 2.63 mg/dL [facility] Comment: Interpretive Data The Binding Site FreeLite assay procedure was used. Results from different manufacturers or methods may not be comparable. Serial testing should be performed using the same methods and instrumentation. Current Interpretive Data was last revised on 2023. Blood 08/31/2024 8:12 AM CDT 08/31/2024 9:34 AM CDT Hermelindo Butler MD LAB BLOOD ORDER ELANA Final Result Performing Organization Address City/[facility]/ZIP Co de Phone Number [facility] Department [place] [address] * (ABNORMAL) aPTT (08/31/2024 8:12 AM CDT) aPTT 50(H) 28 - 38 sec Comment: Interpretive Data Heparin therapeutic range: 66.0 - 100.0 seconds. Range based on correlation with therapeutic heparin activity range of 0.3 - 0.7 Units/mL. Current interpretive data was last revised on 2023. Blood 08/31/2024 8:12 AM CDT 08/31/2024 8:41 AM CDT Hermelindo Butler MD LAB BLOOD ORDER ELANA Final Result Performing Organization Address [facility] Co de Phone Number MT [facility] [employer] [place], [place] [id number] * Protime-INR (08/31/2024 8:12 AM CDT) Pathologist [facility] PT 11.4 9.7 - 13.0 sec INR 1.05 0.90 - 1.20 [facility] Comment: Interpretive data Oral anticoagulant therapeutic ranges: Venous thromboembolism prophylaxis or treatment: 2.0-3.0 CARDIOLOGY Standard range: 2.0-3.0 High-intensity range: 2.5-3.5 Refer to indication-specific guidelines for appropriate target ranges for prosthetic heart valve replacement. Current interpretive data was last revised on 2019. Blood 08/31/2024 8:12 AM CDT 08/31/2024 8:41 AM CDT Hermelindo Butler MD LAB BLOOD ORDER ELANA Final Result Performing Organization Address [facility] de Phone Number [facility] [place] [address] * (ABNORMAL) Protein electrophoresis with reflex, serum with interpretation (08/31/2024 8:12 AM CDT) Pathologist [facility] Protein, sr 6.0(L) 6.2 - 8.2 g/dL Albumin 3.9 3.2 - 5.0 g/dL [facility] Alpha-1 globulin 0.4 0.2 - 0.4 g/dL [facility] [...] Electrophoretic pattern appears similar to previous sample 08/24/2024 See immunotyping for further information Reviewed and signed by Ivan Sims MD, PhD 09/01/2024 Blood 08/31/2024 8:12 AM CDT 08/31/2024 9:34 AM CDT Hermelindo Butler MD LAB BLOOD ORDER ELANA Final Result [facility] Department [place] [employer] [place] [address] * Magnesium (08/31/2024 8:12 AM CDT) Pathologist [facility] Magnesium 1.8 1.4 - 2.5 mg/dL Blood 08/31/2024 8:12 AM CDT 08/31/2024 8:20 AM CDT Hermelindo Butler MD LAB BLOOD ORDER ELANA Final Result [facility] Department [place] [place] [address] * Lactate dehydrogenase (LD) (08/31/2024 8:12 AM CDT) Lactate dehydrogenase (LDH) 155 100 - 250 Units/L Blood 08/31/2024 8:12 AM CDT 08/31/2024 8:20 AM CDT us Hermelindo Butler MD LAB BLOOD ORDER ELANA Final Result Performing Organization Address [facility] de Phone Number [facility] [place] [address] * Gamma GT (08/31/2024 8:12 AM CDT) Pathologist [facility] GGT 27 10 - 50 Units/L Blood 08/31/2024 8:12 AM CDT 08/31/2024 8:20 AM CDT us Hermelindo Butler MD LAB BLOOD ORDER ELANA Final Result Performing Organization Address [facility] de Phone Number [facility] [place] [address] * (ABNORMAL) IgA (08/31/2024 8:12 AM CDT) [facility] Immunoglobulin A <50(L) 70 - 400 mg/dL Blood 08/31/2024 8:12 AM CDT 08/31/2024 8:38 AM CDT Hermelindo Butler MD LAB BLOOD ORDER ELANA Final Result Performing Organization Address [facility] de Phone Number [facility] [place] [address] * (ABNORMAL) IgM (08/31/2024 8:12 AM CDT) Pathologist [facility] Immunoglobulin M <25(L) 40 - 230 mg/dL Blood 08/31/2024 8:12 AM CDT 08/31/2024 8:38 AM CDT us Hermelindo Butler MD LAB BLOOD ORDER ELANA Final Result [facility] Department [place] [address] * (ABNORMAL) IgG (08/31/2024 8:12 AM CDT) [facility] Immunoglobulin G <300(L) 700 - 1,600 mg/dL Blood 08/31/2024 8:12 AM CDT 08/31/2024 8:38 AM CDT Hermelindo Butler MD LAB BLOOD ORDER ELANA Final Result Performing Organization Address [facility] Co de Phone Number [facility] Department [place] [address] * (ABNORMAL) Comprehensive metabolic panel (08/31/2024 8:12 AM CDT) [facility] Sodium 141 135 - 145 mmol/L Potassium, pl 4.0 3.3 - 4.9 mmol/L [facility] Chloride 103 97 - 110 mmol/L [facility] CO2 29 22 - 32 mmol/L [facility] Anion gap 9 2 - 15 mmol/L [facility] BUN 31(H) 6 - 25 mg/dL [facility] Creatinine 1.61(H) 0.80 - 1.30 mg/dL [facility] Glucose 114 70 - 199 mg/dL [facility] [...] 10.3 mg/dL [facility] Bilirubin, total 0.4 0.1 - 1.2 mg/dL [facility] Protein, pl 6.5 6.5 - 8.5 g/dL [facility] Albumin 4.1 3.5 - 5.0 g/dL [facility] Alk phos 65 40 - 130 Units/L [facility] ALT 16 7 - 55 Units/L [facility] AST 15 10 - 50 Units/L [facility] Blood 08/31/2024 8:12 AM CDT 08/31/2024 8:20 AM CDT Hermelindo Butler MD LAB BLOOD ORDER ELANA Final Result [facility] Department [place] [address] * SCAN - LABS (08/30/2024) us Provider Scanning Final Result * (ABNORMAL) eGFR (08/26/2024 12:25 AM CDT) [...] Hargrove MD LAB BLOOD ORDERABLES Final Result [facility] Department [place] [address] * (ABNORMAL) Differential, auto (08/26/2024 12:25 AM CDT) Neutrophil abs 5.3 1.5 - 6.5 K/cumm Imm gran abs 0.0 0.0 - 0.1 K/cumm [facility] Lymphocyte abs 0.7(L) 0.8 - 3.3 K/cumm [facility] Monocyte abs 0.6 0.2 - 0.8 K/cumm [facility] Eosinophil abs 0.3 0.0 - 0.5 K/cumm [facility] Basophil abs 0.0 0.0 - 0.1 K/cumm [facility] Neutrophil pct 75.7 % [facility] Comment: Interpretive Data Percent cell count reference ranges are not reported, since discordance with absolute values may lead to misinterpretation of CBC data. Current Interpretive Data was last revised on 2017. Imm gran pct 0.4 % [facility] Comment: Interpretive Data Percent cell count reference ranges are not reported, since discordance with absolute values may lead to misinterpretation of CBC data. Current Interpretive Data was last revised on 2017. Lymphocyte pct 10.4 % [facility] Comment: Interpretive Data Percent cell count reference ranges are not reported, since discordance with absolute values may lead to misinterpretation of CBC data. Current Interpretive Data was last revised on 2017. Monocyte pct 9.0 % [facility] Comment: Interpretive Data Percent cell count reference ranges are not reported, since discordance with absolute values may lead to misinterpretation of CBC data. Current Interpretive Data was last revised on 2017. Eosinophil pct 4.4 % [facility] Comment: Interpretive Data Percent cell count reference ranges are not reported, since discordance with absolute values may lead to misinterpretation of CBC data. Current Interpretive Data was last revised on 2017. Basophil pct 0.1 % [facility] Comment: Interpretive Data Percent cell count reference ranges are not reported, since discordance with absolute values may lead to misinterpretation of CBC data. Current Interpretive Data was last revised on 2017. Blood 08/26/2024 12:2 5 AM CDT 08/26/2024 12:35 AM CDT Karlos Hargrove MD LAB BLOOD ORDERABLES Final Result Performing Organization Address City/[facility]/ZIP Co de Phone Number [facility] Department [place] [address] * (ABNORMAL) CBC with auto differential (08/26/2024 12:25 AM CDT) WBC 7.0 3.8 - 9.9 K/cumm Hgb 11.8(L) 13.0 - 17.5 g/dL [facility] Hct 35.7(L) 38.9 - 50.3 % [facility] Plt 131(L) 150 - 400 K/cumm [facility] MPV 9.2 9.1 - 12.3 fL [facility] RBC 3.83(L) 4.30 - 5.80 M/cumm [facility] MCV 93.2 81.3 - 96.4 fL [facility] MCH 30.8 27.1 - 33.3 pg [facility] MCHC 33.1 32.3 - 35.7 g/dL [facility] RDW CV 15.4(H) 11.1 - 14.9 % [facility] RDW SD 51.7(H) 35.7 - 48.1 fL [facility] NRBC abs 0.00 0.00 - 0.01 K/cumm [facility] Blood 08/26/2024 12:2 5 AM CDT 08/26/2024 12:35 AM CDT Karlos Hargrove MD LAB BLOOD ORDERABLES Final Result [facility] [place] [address] * Type and screen (08/26/2024 12:25 AM CDT) Yehuda, indirect Negative Comment:Patient has previous antibody history ABO Rh A Positive [facility] Blood 08/26/2024 12:2 5 AM CDT 08/26/2024 12:38 AM CDT Narrative [facility] - 08/26/2024 2:23 AM CDT Has the patient had Daratumumab or Isatuximab in the past 6 months?->Unknown Karlos Hargrove MD LAB BLOOD BANK TEST ORDERA BLES Final Result Performing Organization Address [facility] [place] [address] * (ABNORMAL) Uric acid (08/26/2024 12:25 AM CDT) Pathologist [facility] Uric acid 8.6(H) 3.0 - 8.0 mg/dL Blood 08/26/2024 12:2 5 AM CDT 08/26/2024 12:35 AM CDT Narrative [facility] - 08/26/2024 1:10 AM CDT Friday and only. Morning draw. . Karlos Hargrove MD LAB BLOOD ORDERABLES Final Result Performing Organization Address [facility] [place] [address] * Phosphorus (08/26/2024 12:25 AM CDT) Phosphorus, pl 3.6 2.3 - 4.5 mg/dL Blood 08/26/2024 12:2 5 AM CDT 08/26/2024 12:35 AM CDT Karlos Hargrove MD LAB BLOOD ORDERABLES Final Result Performing Organization Address [facility] Co de Phone Number [facility] [place] [place] [address] * Magnesium (08/26/2024 12:25 AM CDT) [facility] Magnesium 1.7 1.4 - 2.5 mg/dL Blood 08/26/2024 12:2 5 AM CDT 08/26/2024 12:35 AM CDT Karlos Hargrove MD LAB BLOOD ORDERABLES Final Result Performing Organization Address [facility] [place] [address] * Lactate dehydrogenase (LD) (08/26/2024 12:25 AM CDT) [facility] Lactate dehydrogenase (LDH) 167 100 - 250 Units/L Blood 08/26/2024 12:2 5 AM CDT 08/26/2024 12:35 AM CDT Narrative [facility] - 08/26/2024 1:10 AM CDT Friday and only. Morning draw. Karlos Hargrove MD LAB BLOOD ORDERABLES Final Result Performing Organization Address [facility] Co de Phone Number [facility] [place] [address] * (ABNORMAL) Comprehensive metabolic panel (08/26/2024 12:25 AM CDT) [facility] Sodium 148(H) 135 - 145 mmol/L Potassium, pl 3.4 3.3 - 4.9 mmol/L [facility] Chloride 108 97 - 110 mmol/L [facility] CO2 28 22 - 32 mmol/L [facility] Anion gap 12 2 - 15 mmol/L [facility] BUN 35(H) 6 - 25 mg/dL [facility] Creatinine 2.27(H) 0.80 - 1.30 mg/dL [facility] Glucose 107 70 - 199 mg/dL [facility] [...] 2022. Calcium 8.9 8.5 - 10.3 mg/dL [facility] Bilirubin, total 0.6 0.1 - 1.2 mg/dL [facility] Protein, pl 5.9(L) 6.5 - 8.5 g/dL [facility] Albumin 3.7 3.5 - 5.0 g/dL [facility] Alk phos 60 40 - 130 Units/L [facility] ALT 15 7 - 55 Units/L [facility] AST 13 10 - 50 Units/L [facility] Blood 08/26/2024 12:2 5 AM CDT 08/26/2024 12:35 AM CDT Karlos Hargrove MD LAB BLOOD ORDERABLES Final Result [facility] Department [place] [address] * US Vein Duplex Lower Extremity Bilateral Complete (08/25/2024 9:30 AM CDT) Anatomical Region Laterality Modality Vascular Bilateral Ultrasound 08/25/2024 8:37 AM CDT Narrative 08/27/2024 11:[address] [facility] - Department of Vascular Surgery, Vascular Laboratory [address] [place] [address] Lower Extremity Venous Ultrasound Report Patient Name: BUFFY VALLE B : 1950 (73y 8m) Study Date: 08/25/2024 8:37:41 AM Gender: M Tech: Location: [id number] Ref Provider: OLGA KEITH Quality: Adequate Order Provider: OLGA KEITH PROCEDURES: Vascular Report: Venous Duplex imaging was performed bilaterally in the lower extremities. The common femoral, femoral, popliteal, posterior tibial, peroneal veins were evaluated for patency, spontaneity and phasicity with Doppler, compression and augmentation maneuvers. Great saphenous vein proximal at the junction was evaluated with compression maneuvers. INDICATIONS: Localized edema. FINDINGS: Performing Commercial Technician: Farzana Owens RVT. Bilateral: Venous Doppler signals [...] above. Electronically Signed By: Cesar Cabello MD [facility] [phone] 08/27/2024 10:10:26 AM CDT Procedure Note Cesar Cabello MD - 08/27/2024 [facility] - Department of Vascular Surgery,Vascular Laboratory [address] [place] [address] Lower Extremity Venous Ultrasound Report Patient Name: BUFFY VALLE B : 1950 (73y 8m) Study Date: 08/25/2024 8:37:41 AM Gender: M Tech: Location: [id number] Ref Provider: OLGA KEITH Quality: Adequate Order Provider: OLGA KEITH PROCEDURES: Vascular Report: Venous Duplex imaging was performed bilaterally in the lower extremities.The common femoral, femoral, popliteal, posterior tibial, peroneal veins wereevaluated for patency, spontaneity and phasicity with Doppler, compression and augmentationmaneuvers. Great saphenous vein proximal at the junction was evaluated with compressionmaneuvers. INDICATIONS: Localized edema. FINDINGS: Performing Commercial Technician: Farzana Owens RVT. Bilateral: Venous Doppler signals [...] above. Electronically Signed By: Cesar Cabello MD [facility] [phone] 08/27/2024 10:10:26 AM CDT us Olga Keith [...] Hargrove MD LAB BLOOD ORDERABLES Final Result [facility] Department [place] [address] * (ABNORMAL) Differential, auto (08/25/2024 12:34 AM CDT) Neutrophil abs 5.2 1.5 - 6.5 K/cumm Imm gran abs 0.1 0.0 - 0.1 K/cumm [facility] Lymphocyte abs 0.5(L) 0.8 - 3.3 K/cumm [facility] Monocyte abs 0.5 0.2 - 0.8 K/cumm [facility] Eosinophil abs 0.4 0.0 - 0.5 K/cumm [facility] Basophil abs 0.0 0.0 - 0.1 K/cumm [facility] Neutrophil pct 77.6 % [facility] Comment: Interpretive Data Percent cell count reference ranges are not reported, since discordance with absolute values may lead to misinterpretation of CBC data. Current Interpretive Data was last revised on 2017. Imm gran pct 0.7 % [facility] Comment: Interpretive Data Percent cell count reference ranges are not reported, since discordance with absolute values may lead to misinterpretation of CBC data. Current Interpretive Data was last revised on 2017. Lymphocyte pct 7.9 % [facility] Comment: Interpretive Data Percent cell count reference ranges are not reported, since discordance with absolute values may lead to misinterpretation of CBC data. Current Interpretive Data was last revised on 2017. Monocyte pct 7.5 % [facility] Comment: Interpretive Data Percent cell count reference ranges are not reported, since discordance with absolute values may lead to misinterpretation of CBC data. Current Interpretive Data was last revised on 2017. Eosinophil pct 6.0 % [facility] Comment: Interpretive Data Percent cell count reference ranges are not reported, since discordance with absolute values may lead to misinterpretation of CBC data. Current Interpretive Data was last revised on 2017. Basophil pct 0.3 % [facility] Comment: Interpretive Data Percent cell count reference ranges are not reported, since discordance with absolute values may lead to misinterpretation of CBC data. Current Interpretive Data was last revised on 2017. Blood 08/25/2024 12:3 4 AM CDT 08/25/2024 12:57 AM CDT Karlos Hargrove MD LAB BLOOD ORDERABLES Final Result [facility] Department [place] [address] * (ABNORMAL) CBC with auto differential (08/25/2024 12:34 AM CDT) WBC 6.7 3.8 - 9.9 K/cumm Hgb 11.2(L) 13.0 - 17.5 g/dL [facility] Hct 33.3(L) 38.9 - 50.3 % [facility] Plt 136(L) 150 - 400 K/cumm [facility] MPV 9.5 9.1 - 12.3 fL [facility] RBC 3.57(L) 4.30 - 5.80 M/cumm [facility] MCV 93.3 81.3 - 96.4 fL [facility] MCH 31.4 27.1 - 33.3 pg [facility] MCHC 33.6 32.3 - 35.7 g/dL [facility] RDW CV 15.3(H) 11.1 - 14.9 % [facility] RDW SD 51.0(H) 35.7 - 48.1 fL [facility] NRBC abs 0.00 0.00 - 0.01 K/cumm [facility] Blood 08/25/2024 12:3 4 AM CDT 08/25/2024 12:57 AM CDT Karlos Hargrove MD LAB BLOOD ORDERABLES Final Result Performing Organization Address City/[facility] Co de Phone Number [facility] [place] [place] [address] * Phosphorus (08/25/2024 12:34 AM CDT) Pathologist [facility] Phosphorus, pl 3.7 2.3 - 4.5 mg/dL Blood 08/25/2024 12:3 4 AM CDT 08/25/2024 12:55 AM CDT Karlos Hargrove MD LAB BLOOD ORDERABLES Final Result Performing Organization Address [facility] Co de Phone Number [facility] [place] [address] * Magnesium (08/25/2024 12:34 AM CDT) [facility] Magnesium 1.9 1.4 - 2.5 mg/dL Blood 08/25/2024 12:3 4 AM CDT 08/25/2024 12:55 AM CDT Karlos Hargrove MD LAB BLOOD ORDERABLES Final Result Performing Organization Address [facility] [place] [address] * (ABNORMAL) Comprehensive metabolic panel (08/25/2024 12:34 AM CDT) Pathologist [facility] Sodium 147(H) 135 - 145 mmol/L Potassium, pl 3.2(L) 3.3 - 4.9 mmol/L [facility] Chloride 109 97 - 110 mmol/L [facility] CO2 26 22 - 32 mmol/L [facility] Anion gap 12 2 - 15 mmol/L [facility] BUN 47(H) 6 - 25 mg/dL [facility] Creatinine 2.74(H) 0.80 - 1.30 mg/dL [facility] Glucose 154 70 - 199 mg/dL [facility] [...] 2022. Calcium 8.4(L) 8.5 - 10.3 mg/dL [facility] Bilirubin, total 0.4 0.1 - 1.2 mg/dL [facility] Protein, pl 5.9(L) 6.5 - 8.5 g/dL [facility] Albumin 3.9 3.5 - 5.0 g/dL [facility] Alk phos 61 40 - 130 Units/L [facility] ALT 18 7 - 55 Units/L [facility] AST 17 10 - 50 Units/L [facility] Blood 08/25/2024 12:3 4 AM CDT 08/25/2024 12:55 AM CDT Karlos Hargrove MD LAB BLOOD ORDERABLES Final Result [facility] Department of Laboratories [place], [place] [id number] * Sodium, urine, random (08/24/2024 5:16 PM CDT) Sodium, ur 44 mmol/L Comment: Interpretive Data No reference range established. Current interpretive data was last revised 2018. Urine 08/24/2024 5:16 PM CDT 08/24/2024 5:31 PM CDT us Olga Keith MD LAB URINE ORDERABLES Final Resul t [facility] Department [place] [address] * CT Abdomen Pelvis WO Contrast (08/24/2024 [...] by: Randall Braun M.D. Olga Keith MD [facility] CT PROCEDURES Final Result * (ABNORMAL) Differential, auto (08/24/2024 2:30 AM CDT) Neutrophil abs 4.9 1.5 - 6.5 K/cumm Imm gran abs 0.0 0.0 - 0.1 K/cumm [facility] Lymphocyte abs 0.7(L) 0.8 - 3.3 K/cumm [facility] Monocyte abs 0.6 0.2 - 0.8 K/cumm [facility] Eosinophil abs 0.5 0.0 - 0.5 K/cumm [facility] Basophil abs 0.0 0.0 - 0.1 K/cumm [facility] Neutrophil pct 73.7 % [facility] Comment: Interpretive Data Percent cell count reference ranges are not reported, since discordance with absolute values may lead to misinterpretation of CBC data. Current Interpretive Data was last revised on 2017. Imm gran pct 0.6 % [facility] Comment: Interpretive Data Percent cell count reference ranges are not reported, since discordance with absolute values may lead to misinterpretation of CBC data. Current Interpretive Data was last revised on 2017. Lymphocyte pct 10.0 % [facility] Comment: Interpretive Data Percent cell count reference ranges are not reported, since discordance with absolute values may lead to misinterpretation of CBC data. Current Interpretive Data was last revised on 2017. Monocyte pct 8.3 % [facility] Comment: Interpretive Data Percent cell count reference ranges are not reported, since discordance with absolute values may lead to misinterpretation of CBC data. Current Interpretive Data was last revised on 2017. Eosinophil pct 7.1 % [facility] Comment: Interpretive Data Percent cell count reference ranges are not reported, since discordance with absolute values may lead to misinterpretation of CBC data. Current Interpretive Data was last revised on 2017. Basophil pct 0.3 % [facility] Comment: Interpretive Data Percent cell count reference ranges are not reported, since discordance with absolute values may lead to misinterpretation of CBC data. Current Interpretive Data was last revised on 2017. Blood 08/24/2024 2:30 AM CDT 08/24/2024 1:28 AM CDT Karlos Hargrove MD LAB BLOOD ORDERABLES Final Result [facility] Department [place] [address] * (ABNORMAL) CBC with auto differential (08/24/2024 2:30 AM CDT) WBC 6.6 3.8 - 9.9 K/cumm Hgb 10.9(L) 13.0 - 17.5 g/dL [facility] Hct 33.1(L) 38.9 - 50.3 % [facility] Plt 130(L) 150 - 400 K/cumm [facility] MPV 10.0 9.1 - 12.3 fL [facility] RBC 3.50(L) 4.30 - 5.80 M/cumm [facility] MCV 94.6 81.3 - 96.4 fL [facility] MCH 31.1 27.1 - 33.3 pg [facility] MCHC 32.9 32.3 - 35.7 g/dL [facility] RDW CV 15.3(H) 11.1 - 14.9 % [facility] RDW SD 51.8(H) 35.7 - 48.1 fL [facility] NRBC abs 0.00 0.00 - 0.01 K/cumm [facility] Blood 08/24/2024 2:30 AM CDT 08/24/2024 1:28 AM CDT Karlos Hargrove MD LAB BLOOD ORDERABLES Final Result Performing Organization Address [facility] Co de Phone Number [facility] Department [place] [address] * (ABNORMAL) eGFR (08/24/2024 1:12 AM CDT) [...] BLOOD ORDERABLES Final Result Performing Organization Address [facility] Co de Phone Number [facility] [place] [address] * aPTT (08/24/2024 1:12 AM CDT) aPTT 32 28 - 38 sec Comment: Interpretive Data Heparin therapeutic range: 66.0 - 100.0 seconds. Range based on correlation with therapeutic heparin activity range of 0.3 - 0.7 Units/mL. Current interpretive data was last revised on 2023. Blood 08/24/2024 1:12 AM CDT 08/24/2024 1:53 AM CDT Karlos Hargrove MD LAB BLOOD ORDERABLES Final Result Performing Organization Address [facility] de Phone Number [facility] Department [place] [address] * Protime-INR (08/24/2024 1:12 AM CDT) PT 11.7 9.7 - 13.0 sec INR 1.08 0.90 - 1.20 [facility] Comment: Interpretive data Oral anticoagulant therapeutic ranges: Venous thromboembolism prophylaxis or treatment: 2.0-3.0 CARDIOLOGY Standard range: 2.0-3.0 High-intensity range: 2.5-3.5 Refer to indication-specific guidelines for appropriate target ranges for prosthetic heart valve replacement. Current interpretive data was last revised on 2019. Blood 08/24/2024 1:12 AM CDT 08/24/2024 1:53 AM CDT Karlos Hargrove MD LAB BLOOD ORDERABLES Final Result Performing Organization Address [facility] de Phone Number [facility] Department [place] [address] * Type and screen (08/24/2024 1:12 AM CDT) Yehuda, indirect Negative Comment:Patient has previous antibody history ABO Rh A Positive [facility] Blood 08/24/2024 1:12 AM CDT 08/24/2024 1:36 AM CDT Narrative [facility] - 08/24/2024 2:36 AM CDT Has the patient had Daratumumab or Isatuximab in the past 6 months?->Unknown us Karlos Hargrove MD LAB BLOOD BANK TEST ORDERA BLES Final Result Performing Organization Address City/[facility]/ZIP Co de Phone Number [facility] Department [place] [address] * (ABNORMAL) Uric acid (08/24/2024 1:12 AM CDT) Uric acid 9.5(H) 3.0 - 8.0 mg/dL Blood 08/24/2024 1:12 AM CDT 08/24/2024 1:35 AM CDT Narrative [facility] - 08/24/2024 2:47 AM CDT Friday and only. Morning draw. . us Karlos Hargrove MD LAB BLOOD ORDERABLES Final Result Performing Organization Address [facility] Co de Phone Number [facility] Department [place] [address] * Phosphorus (08/24/2024 1:12 AM CDT) Pathologist [facility] Phosphorus, pl 4.5 2.3 - 4.5 mg/dL Blood 08/24/2024 1:12 AM CDT 08/24/2024 1:35 AM CDT us Karlos Hargrove MD LAB BLOOD ORDERABLES Final Result Performing Organization Address [facility] Co de Phone Number [facility] Department [place] [address] * Magnesium (08/24/2024 1:12 AM CDT) Magnesium 2.0 1.4 - 2.5 mg/dL Blood 08/24/2024 1:12 AM CDT 08/24/2024 1:35 AM CDT us Karlos Hargrove MD LAB BLOOD ORDERABLES Final Result Performing Organization Address City/[facility] Co de Phone Number [facility] Department [place] [address] * Lactate dehydrogenase (LD) (08/24/2024 1:12 AM CDT) [facility] Lactate dehydrogenase (LDH) 226 100 - 250 Units/L Blood 08/24/2024 1:12 AM CDT 08/24/2024 1:35 AM CDT Narrative [facility] - 08/24/2024 2:47 AM CDT Friday and only. Morning draw. Kalros Hargrove MD LAB BLOOD ORDERABLES Final Result [facility] Department [place] [address] * (ABNORMAL) Comprehensive metabolic panel (08/24/2024 1:12 AM CDT) [facility] Sodium 148(H) 135 - 145 mmol/L Potassium, pl 3.6 3.3 - 4.9 mmol/L [facility] Chloride 111(H) 97 - 110 mmol/L [facility] CO2 25 22 - 32 mmol/L [facility] Anion gap 12 2 - 15 mmol/L [facility] BUN 56(H) 6 - 25 mg/dL [facility] Creatinine 3.16(H) 0.80 - 1.30 mg/dL [facility] Glucose 102 70 - 199 mg/dL [facility] [...] 2022. Calcium 8.5 8.5 - 10.3 mg/dL [facility] Bilirubin, total 0.4 0.1 - 1.2 mg/dL [facility] Protein, pl 5.7(L) 6.5 - 8.5 g/dL [facility] Albumin 3.6 3.5 - 5.0 g/dL [facility] Alk phos 62 40 - 130 Units/L [facility] ALT 16 7 - 55 Units/L [facility] AST 11 10 - 50 Units/L [facility] Blood 08/24/2024 1:12 AM CDT 08/24/2024 1:35 AM CDT Karlos Hargrove MD LAB BLOOD ORDERABLES Final Result [facility] Department [place] [address] * US Kidney Complete (08/23/2024 8:12 PM [...] by: Qian Barnes M.D. us Kinga Jones MECHANIC GENERAL OPERATIONAL TEST IMG US PROCEDURES Final R esult * (ABNORMAL) Urinalysis reflex to microscopic (08/23/2024 7:01 PM CDT) Color, ur Straw Yellow Clarity, ur Clear Clear [facility] Specific gravity, ur 1.011 1.003 - 1.030 [facility] pH, urine 5.5 [facility] Comment: Interpretive Data U rine pH is affected by diet, medications, systemic acid-base disturbances, and renal tubular function. pH may affect urinary stone formation. For example, urine pH below 6.0 may help reduce the tendency for calcium phosphate stones and pH greater than 6.0 may reduce the tendency for uric acid stone formation. Source: [place] [employer] Current Interpretive Data was last revised on 2017 Protein, ur ql Negative Negative [facility] Glucose, ur ql Negative Negative [facility] Ketones, ur Negative Negative [facility] Bilirubin, ur Negative Negative [facility] Blood, ur 2+(A) Negative [facility] Urobilinogen, ur <2.0 <2.0 mg/dL [facility] Nitrite, ur Negative Negative [facility] Leukocyte esterase, ur Trace(A) Negative [facility] UA reflex comment Reflex to microscopic [facility]A will be performed. [facility] Urine 08/23/2024 7:01 PM CDT 08/23/2024 7:15 PM CDT Kinga Jones NP LAB URINE ORDERABLES [place] l Result Performing Organization Address City/[facility]/ZIP Co de Phone Number [facility] [place] [address] * Protein / creatinine ratio, urine, random (08/23/2024 7:01 PM CDT) Protein, ur, quant 6.4 mg/dL Comment: Interpretive Data No reference range established. Current interpretive data was last revised 2018. Creatinine Ur 74.0 mg/dL [facility] Comment: Interpretive Data No reference range established. Current interpretive data was last revised 2018. Protein/creatinin e ratio 86.5 0.0 - 180.0 mg/g CR [facility] Urine 08/23/2024 7:01 PM CDT 08/23/2024 7:28 PM CDT Kinga Jones MECHANIC GENERAL OPERATIONAL TEST LAB URINE ORDERABLES [place] l Result Performing Organization Address [facility] Co de Phone Number [facility] [place] [address] * (ABNORMAL) Urinalysis, microscopic only (08/23/2024 7:01 PM CDT) WBC, ur 0-5 0 - 5 /HPF RBC, ur 6-10(A) 0 - 2 /HPF [facility] Urine 08/23/2024 7:01 PM CDT 08/23/2024 7:15 PM CDT Kinga Jones MECHANIC GENERAL OPERATIONAL TEST LAB URINE ORDERABLES Angeles l Result [facility] [place] [address] * Urine culture Urine, clean voided (08/23/2024 7:01 PM CDT) [facility] Report Final Report: Less than 100,000 colonies/mL (clinically insignificant growth based on current clinical standards) Organism (CLINICALLY INSIGNIFICANT GROWTH [facility] Urine, clean voided 08/23/2024 7:01 PM CDT 08/23/2024 8:52 PM CDT Narrative [facility] - 08/25/2024 8:02 AM CDT Indications for Culture:->Other (specify) Other Indication:->elevated creatinine Specimen received in a sterile container. Testing performed by [facility] Microbiology [facility] ([phone]) Kinga Jones NP LAB MICROBIOLOGY - GENERA L ORDERABLES Final Result Performing Organization Address City/[facility]/ZIP Co de Phone Number [facility] Department [place] [address] * Immunotyping, serum with interpretation (08/23/2024 6:04 PM CDT) [facility] Immunosubtraction Please see comment Comment: NO PARAPROTEIN DETECTED Reviewed and signed by Fernando Nunez MD, PhD 08/24/2024 Blood 08/23/2024 6:04 PM CDT 08/23/2024 6:13 PM CDT us Hermelindo Butler MD LAB BLOOD ORDER ELANA Final Result Performing Organization Address City/[facility]/ZIP Co de Phone Number [facility] Department [place] [address] * (ABNORMAL) eGFR (08/23/2024 6:04 PM CDT) [facility] eGFR 19(L) >=60 mL/min/1. 73 m2 Comment: [...] ELANA Final Result [facility] Department [place] [address] * (ABNORMAL) Differential, auto (08/23/2024 6:04 PM CDT) Pathologist [facility] Neutrophil abs 6.5 1.5 - 6.5 K/cumm Imm gran abs 0.0 0.0 - 0.1 K/cumm [facility] Lymphocyte abs 0.7(L) 0.8 - 3.3 K/cumm [facility] Monocyte abs 0.6 0.2 - 0.8 K/cumm [facility] Eosinophil abs 0.6(H) 0.0 - 0.5 K/cumm [facility] Basophil abs 0.0 0.0 - 0.1 K/cumm [facility] Neutrophil pct 77.0 % [facility] Comment: Interpretive Data Percent cell count reference ranges are not reported, since discordance with absolute values may lead to misinterpretation of CBC data. Current Interpretive Data was last revised on 2017. Imm gran pct 0.5 % [facility] Comment: Interpretive Data Percent cell count reference ranges are not reported, since discordance with absolute values may lead to misinterpretation of CBC data. Current Interpretive Data was last revised on 2017. Lymphocyte pct 8.3 % [facility] Comment: Interpretive Data Percent cell count reference ranges are not reported, since discordance with absolute values may lead to misinterpretation of CBC data. Current Interpretive Data was last revised on 2017. Monocyte pct 7.3 % [facility] Comment: Interpretive Data Percent cell count reference ranges are not reported, since discordance with absolute values may lead to misinterpretation of CBC data. Current Interpretive Data was last revised on 2017. Eosinophil pct 6.5 % [facility] Comment: Interpretive Data Percent cell count reference ranges are not reported, since discordance with absolute values may lead to misinterpretation of CBC data. Current Interpretive Data was last revised on 2017. Basophil pct 0.4 % [facility] Comment: Interpretive Data Percent cell count reference ranges are not reported, since discordance with absolute values may lead to misinterpretation of CBC data. Current Interpretive Data was last revised on 2017. Blood 08/23/2024 6:04 PM CDT 08/23/2024 6:12 PM CDT us Hermelindo Butler MD LAB BLOOD ORDER ELANA Final Result [facility] Department [place] [address] * (ABNORMAL) Immunoglobulin free light chains (08/23/2024 6:04 PM CDT) [place]/Lambda ratio [facility] <0.40 0.26 - 1.65 Comment: Interpretive Data The Binding Site FreeLite assay procedure was used. Results from different manufacturers or methods may not be comparable. Serial testing should be performed using the same methods and instrumentation. Current Interpretive Data was last revised on 2023. [place] free light chain [facility] <0.06(L) 0.33 - 1.94 mg/dL MT [facility] Comment: Interpretive Data The Binding Site FreeLite assay procedure was used. Results from different manufacturers or methods may not be comparable. Serial testing should be performed using the same methods and instrumentation. Current Interpretive Data was last revised on 2023. Lambda free light chain [facility] 0.15(L) 0.57 - 2.63 mg/dL [facility] Comment: Interpretive Data The Binding Site FreeLite assay procedure was used. Results from different manufacturers or methods may not be comparable. Serial testing should be performed using the same methods and instrumentation. Current Interpretive Data was last revised on 2023. Blood 08/23/2024 6:04 PM CDT 08/23/2024 6:12 PM CDT us Hermelindo Butler MD LAB BLOOD ORDER ELANA Final Result [facility] Department [place] [address] * (ABNORMAL) CBC with auto differential (08/23/2024 6:04 PM CDT) Pathologist [facility] WBC 8.5 3.8 - 9.9 K/cumm Hgb 11.8(L) 13.0 - 17.5 g/dL [facility] Hct 35.6(L) 38.9 - 50.3 % [facility] Plt 131(L) 150 - 400 K/cumm [facility] MPV 9.8 9.1 - 12.3 fL [facility] RBC 3.78(L) 4.30 - 5.80 M/cumm [facility] MCV 94.2 81.3 - 96.4 fL [facility] MCH 31.2 27.1 - 33.3 pg [facility] MCHC 33.1 32.3 - 35.7 g/dL [facility] RDW CV 15.2(H) 11.1 - 14.9 % [facility] RDW SD 51.2(H) 35.7 - 48.1 fL [facility] NRBC abs 0.00 0.00 - 0.01 K/cumm [facility] Blood 08/23/2024 6:04 PM CDT 08/23/2024 6:12 PM CDT Hermelindo Butler MD LAB BLOOD ORDER ELANA Final Result [facility] Department [place] [address] * (ABNORMAL) Uric acid (08/23/2024 6:04 PM CDT) Pathologist [facility] Uric acid 9.5(H) 3.0 - 8.0 mg/dL Blood 08/23/2024 6:04 PM CDT 08/23/2024 6:13 PM CDT Hermelindo Butler MD LAB BLOOD ORDER ELANA Final Result Performing Organization Address [facility] de Phone Number [facility] Department [place] [address] * (ABNORMAL) Protein electrophoresis with reflex, serum with interpretation (08/23/2024 6:04 PM CDT) Pathologist [facility] Protein, sr 5.9(L) 6.2 - 8.2 g/dL Albumin 3.9 3.2 - 5.0 g/dL [facility] Alpha-1 globulin 0.4 0.2 - 0.4 g/dL [facility] [...] ORDER ELANA Final Result Performing Organization Address [facility] de Phone Number [facility] [place] [address] * (ABNORMAL) Phosphorus (08/23/2024 6:04 PM CDT) Pathologist [facility] Phosphorus, pl 4.7(H) 2.3 - 4.5 mg/dL Blood 08/23/2024 6:04 PM CDT 08/23/2024 6:13 PM CDT us Hermelindo Butler MD LAB BLOOD ORDER ELANA Final Result Performing Organization Address [facility] de Phone Number [facility] [place] [address] * Magnesium (08/23/2024 6:04 PM CDT) [facility] Magnesium 1.9 1.4 - 2.5 mg/dL Blood 08/23/2024 6:04 PM CDT 08/23/2024 6:13 PM CDT us Hermelindo Butler MD LAB BLOOD ORDER ELANA Final Result Performing Organization Address [facility] de Phone Number [facility] [place] [address] * Lactate dehydrogenase (LD) (08/23/2024 6:04 PM CDT) Pathologist [facility] Lactate dehydrogenase (LDH) 198 100 - 250 Units/L Blood 08/23/2024 6:04 PM CDT 08/23/2024 6:13 PM CDT Hermelindo Butler MD LAB BLOOD ORDER ELANA Final Result [facility] [place] [address] * (ABNORMAL) IgA (08/23/2024 6:04 PM CDT) Immunoglobulin A <50(L) 70 - 400 mg/dL Blood 08/23/2024 6:04 PM CDT 08/23/2024 6:13 PM CDT Hermelindo Butler MD LAB BLOOD ORDER ELANA Final Result Performing Organization Address [facility] Co de Phone Number [facility] [employer] [place] [address] * (ABNORMAL) IgM (08/23/2024 6:04 PM CDT) Immunoglobulin M <25(L) 40 - 230 mg/dL Blood 08/23/2024 6:0 4 PM CDT 08/23/2024 6:13 PM CDT Hermelindo Butler MD LAB BLOOD ORDER ELANA Final Result Performing Organization Address City/[facility] Co de Phone Number [facility] [place] [employer] [place] [address] * (ABNORMAL) IgG (08/23/2024 6:04 PM CDT) Immunoglobulin G <300(L) 700 - 1,600 mg/dL Blood 08/23/2024 6:04 PM CDT 08/23/2024 6:13 PM CDT Hermelindo Butler MD LAB BLOOD ORDER ELANA Final Result Performing Organization Address City/[facility]/ZIP Co de Phone Number [facility] Department [place] [address] * (ABNORMAL) Comprehensive metabolic panel (08/23/2024 6:04 PM CDT) Sodium 146(H) 135 - 145 mmol/L Potassium, pl 3.8 3.3 - 4.9 mmol/L [facility] Chloride 107 97 - 110 mmol/L [facility] CO2 26 22 - 32 mmol/L [facility] Anion gap 13 2 - 15 mmol/L [facility] BUN 58(H) 6 - 25 mg/dL [facility] Creatinine 3.37(H) 0.80 - 1.30 mg/dL [facility] Glucose 89 70 - 199 mg/dL [facility] [...] 2022. Calcium 8.9 8.5 - 10.3 mg/dL [facility] Bilirubin, total 0.4 0.1 - 1.2 mg/dL [facility] Protein, pl 6.2(L) 6.5 - 8.5 g/dL [facility] Albumin 4.0 3.5 - 5.0 g/dL [facility] Alk phos 68 40 - 130 Units/L [facility] ALT 16 7 - 55 Units/L [facility] AST 12 10 - 50 Units/L [facility] Blood 08/23/2024 6:04 PM CDT 08/23/2024 6:13 PM CDT us Hermelindo Butler MD LAB BLOOD ORDER ELANA Final Result [facility] Department [place] [address] * SCAN - LABS (08/20/2024) us Provider Scanning Final Result * SCAN - LABS (08/10/2024) us Provider Scanning Final Result * US Kidney Complete (08/06/2024 2:42 PM WASTE DISPOSAL LEAKAGE TESTER) Anatomical Region Laterality Modality Kidney N/A Ultrasound 08/06/2024 3:27 PM WASTE DISPOSAL LEAKAGE TESTER Impressions 08/06/2024 3:27 PM WASTE DISPOSAL LEAKAGE TESTER 1. Mild nephromegaly with mild to moderate hydronephrosis bilaterally. 2. Incomplete bladder emptying with post void bladder residual of 397 mL. Electronically signed by: Dylan Tinajero M.D. Narrative 08/06/2024 3:27 PM WASTE DISPOSAL LEAKAGE TESTER EXAMINATION: COMPLETE RENAL SONOGRAM HISTORY: Rising creatinine. [...] by: Dylan Tinajero M.D. Hermelindo Butler MD [facility] PROCEDUR ES Final Result * (ABNORMAL) Urinalysis reflex to microscopic (08/06/2024 9:19 AM WASTE DISPOSAL LEAKAGE TESTER) Color, ur Straw Yellow Clarity, ur Clear Clear [facility] Specific gravity, ur 1.013 1.003 - 1.030 [facility] pH, urine 5.5 [facility] Comment: Interpretive Data U rine pH is affected by diet, medications, systemic acid-base disturbances, and renal tubular function. pH may affect urinary stone formation. For example, urine pH below 6.0 may help reduce the tendency for calcium phosphate stones and pH greater than 6.0 may reduce the tendency for uric acid stone formation. Source: [facility] [employer] Current Interpretive Data was last revised on [...] [facility] Urine 08/06/2024 9:19 AM WASTE DISPOSAL LEAKAGE TESTER 08/06/2024 9:19 AM WASTE DISPOSAL LEAKAGE TESTER Lyndsey Fagan NP LAB URINE ORDERABLES [place] l Result [facility] Department [place] [address] * Protein / creatinine ratio, urine, random (08/06/2024 9:19 AM WASTE DISPOSAL LEAKAGE TESTER) Protein, ur, quant 7.9 mg/dL Comment: Interpretive Data No reference range established. Current interpretive data was last revised 2018. Creatinine Ur 77.4 mg/dL [facility] Comment: Interpretive Data No reference range established. Current interpretive data was last revised 2018. Protein/creatinin e ratio 102.1 0.0 - 180.0 mg/g CR [facility] Urine 08/06/2024 9:19 AM WASTE DISPOSAL LEAKAGE TESTER 08/06/2024 9:41 AM WASTE DISPOSAL LEAKAGE TESTER Lyndsey Fagan [employer]ATIONAL TEST LAB URINE ORDERABLES [place] l Result Performing Organization Address [facility] de Phone Number [facility] [place] [address] * (ABNORMAL) Urinalysis, microscopic only (08/06/2024 9:19 AM WASTE DISPOSAL LEAKAGE TESTER) WBC, ur 6-10(A) 0 - 5 /HPF RBC, ur 21-50(A) 0 - 2 /HPF [facility] Bacteria, ur Trace(A) [facility] Mucous, ur Present(A) [facility] Urine 08/06/2024 9:19 AM WASTE DISPOSAL LEAKAGE TESTER 08/06/2024 9:19 AM WASTE DISPOSAL LEAKAGE TESTER Lyndsey Fagan LAB URINE ORDERABLES [place] l Result Performing Organization Address [facility] de Phone Number [facility] [place] [address] * (ABNORMAL) eGFR (08/06/2024 7:43 AM WASTE DISPOSAL LEAKAGE TESTER) eGFR 31(L) >=60 mL/min/1. 73 m2 Comment: [...] last reviewed 2021. Blood 08/06/2024 7:43 AM WASTE DISPOSAL LEAKAGE TESTER 08/06/2024 7:52 AM WASTE DISPOSAL LEAKAGE TESTER us Hermelindo Butler MD LAB BLOOD ORDER ELANA Final Result [facility] Department [place] [address] * (ABNORMAL) Differential, auto (08/06/2024 7:43 AM WASTE DISPOSAL LEAKAGE TESTER) Neutrophil abs 5.4 1.5 - 6.5 K/cumm Comment:Testing performed by : [facility], [address] [place] [phone] Lymphocyte abs 0.8 0.8 - 3.3 K/cumm [facility] BJ Comment:Testing performed by : [facility], [address] [place] [phone] Monocyte abs 0.5 0.2 - 0.8 K/cumm MT SUAREZ Comment:Testing performed by : [facility], [address] [place] [phone] Eosinophil abs 0.7(H) 0.0 - 0.5 K/cumm [facility] BJ Comment:Testing performed by : [facility], [address] [place] [phone] Basophil abs 0.0 0.0 - 0.1 K/cumm [facility] BJ Comment:Testing performed by : [facility], [address] [place] [phone] Neutrophil pct 72.4 % [facility] Comment: Interpretive Data Percent cell count reference ranges are not reported, since discordance with absolute values may lead to misinterpretation of CBC data. Current Interpretive Data was last revised on 2017. Testing performed by: [facility], [address] [place] [phone] Lymphocyte pct 10.4 % [facility] Comment: Interpretive Data Percent cell count reference ranges are not reported, since discordance with absolute values may lead to misinterpretation of CBC data. Current Interpretive Data was last revised on 2017. Testing performed by: [facility], [address] [place] [phone] Monocyte pct 7.3 % [facility] BJ Comment: Interpretive Data Percent cell count reference ranges are not reported, since discordance with absolute values may lead to misinterpretation of CBC data. Current Interpretive Data was last revised on 2017. Testing performed by: [facility], [address] [place] [address] Eosinophil pct 9.4 % [facility] Comment: Interpretive Data Percent cell count reference ranges are not reported, since discordance with absolute values may lead to misinterpretation of CBC data. Current Interpretive Data was last revised on 2017. Testing performed by: [facility], [address] [place] [phone] Basophil pct 0.5 % [facility] BJ Comment: Interpretive Data Percent cell count reference ranges are not reported, since discordance with absolute values may lead to misinterpretation of CBC data. Current Interpretive Data was last revised on 2017. Testing performed by: [facility], [address] [place] [phone] Blood 08/06/2024 7:43 AM WASTE DISPOSAL LEAKAGE TESTER 08/06/2024 7:51 AM WASTE DISPOSAL LEAKAGE TESTER us Hermelindo Butler MD LAB BLOOD ORDER ELANA Final Result [facility] Department [place] [address] * (ABNORMAL) CBC with auto differential (08/06/2024 7:43 AM WASTE DISPOSAL LEAKAGE TESTER) WBC 7.5 3.8 - 9.9 K/cumm Comment:Testing performed by : [facility], [address] [place] [address] Hgb 13.7 13.0 - 17.5 g/dL [facility] BJ Comment:Testing performed by : [facility], [address] [place] [address] Hct 40.6 38.9 - 50.3 % [facility] BJ Comment:Testing performed by : [facility], [address] [place] [address] Plt 169 150 - 400 K/cumm [facility] BJ Comment:Testing performed by : [facility], [address] [place] [address] MPV 7.5 6.8 - 10.4 fL [facility] BJ Comment:Testing performed by : [facility], [address] [place] [address] RBC 4.37 4.30 - 5.80 M/cumm [facility] BJ Comment:Testing performed by : [facility], [address] [place] [address] MCV 92.7 81.3 - 96.4 fL [facility] BJ Comment:Testing performed by : [facility], [address] [place] [address] MCH 31.3 27.1 - 33.3 pg [facility] BJ Comment:Testing performed by : [facility], [address] [place] [address] MCHC 33.8 32.3 - 35.7 g/dL [facility] BJ Comment:Testing performed by : [facility], [address] [place] [address] RDW CV 16.5(H) 11.1 - 14.9 % [facility] BJ Comment:Testing performed by : [facility], [address] [place] [address] NRBC abs 0.00 0.00 - 0.01 K/cumm [facility] Comment:Testing performed by : [facility], [address] [place] [phone] Blood 08/06/2024 7:43 AM WASTE DISPOSAL LEAKAGE TESTER 08/06/2024 7:51 AM WASTE DISPOSAL LEAKAGE TESTER Hermelindo Butler MD LAB BLOOD ORDER ELANA Final Result Performing Organization Address [facility] Co de Phone Number [facility] Department [place] [address] * (ABNORMAL) PSA diagnostic (08/06/2024 7:43 AM WASTE DISPOSAL LEAKAGE TESTER) PSA-Total 6.28(H) <=6.20 ng/mL Comment: Interpretive Data [...] last revised 21. Blood 08/06/2024 7:43 AM WASTE DISPOSAL LEAKAGE TESTER 08/06/2024 7:52 AM WASTE DISPOSAL LEAKAGE TESTER Hermelindo Butler MD LAB BLOOD ORDER ELANA Final Result Performing Organization Address City/[facility] Co de Phone Number [facility] Department [place] [address] * Lactate dehydrogenase (LD) (08/06/2024 7:43 AM WASTE DISPOSAL LEAKAGE TESTER) Lactate dehydrogenase (LDH) 161 100 - 250 Units/L Blood 08/06/2024 7:43 AM WASTE DISPOSAL LEAKAGE TESTER 08/06/2024 7:52 AM WASTE DISPOSAL LEAKAGE TESTER Hermelindo Butler MD LAB BLOOD ORDER ELAAN Final Result [place] [facility] Department [place] [address] * (ABNORMAL) Lipid panel (08/06/2024 7:43 AM WASTE DISPOSAL LEAKAGE TESTER) Cholesterol 128 30 - 199 mg/dL Comment: [...] on 2018. Triglycerides 149 <=149 mg/dL [facility] Comment: Interpretive Data Ages < or [...] on 2018. HDL 38(L) >=40 mg/dL MT [facility] Comment: Interpretive Data Ages < or [...] Luis Nielsen et al. NATALIIA Cardiol. 2019October 07;5(5):540-548. doi: [email or web address] Current Interpretive Data was [...] [facility] Blood 08/06/2024 7:43 AM WASTE DISPOSAL LEAKAGE TESTER 08/06/2024 7:52 AM WASTE DISPOSAL LEAKAGE TESTER us Hermelindo Butler MD LAB BLOOD ORDER ELANA Final Result [facility] Department [place] [address] * (ABNORMAL) Comprehensive metabolic panel (08/06/2024 7:43 AM WASTE DISPOSAL LEAKAGE TESTER) Sodium 145 135 - 145 mmol/L Potassium, [...] [facility] Blood 08/06/2024 7:43 AM WASTE DISPOSAL LEAKAGE TESTER 08/06/2024 7:52 AM WASTE DISPOSAL LEAKAGE TESTER us Hermelindo Butler MD LAB BLOOD ORDER ELANA Final Result [facility] Department [place] [address] * aPTT (08/03/2024 9:21 AM WASTE DISPOSAL LEAKAGE TESTER) Pathologist [facility] aPTT 31 28 - 38 sec Comment: Interpretive Data Heparin therapeutic range: 66.0 - 100.0 seconds. Range based on correlation with therapeutic heparin activity range of 0.3 - 0.7 Units/mL. Current interpretive data was last revised on 2023. Blood 08/03/2024 9:21 AM WASTE DISPOSAL LEAKAGE TESTER 08/03/2024 9:47 AM WASTE DISPOSAL LEAKAGE TESTER Hermelindo Butler MD LAB BLOOD ORDER ELANA Final Result Performing Organization Address City/[facility] Co de Phone Number [facility] [place] [employer] [place] [address] * Protime-INR (08/03/2024 9:21 AM WASTE DISPOSAL LEAKAGE TESTER) Pathologist [facility] PT 11.5 9.7 - 13.0 sec INR 1.06 0.90 - 1.20 [facility] Comment: Interpretive data Oral anticoagulant therapeutic ranges: Venous thromboembolism prophylaxis or treatment: 2.0-3.0 CARDIOLOGY Standard range: 2.0-3.0 High-intensity range: 2.5-3.5 Refer to indication-specific guidelines for appropriate target ranges for prosthetic heart valve replacement. Current interpretive data was last revised on 2019. Blood 08/03/2024 9:21 AM WASTE DISPOSAL LEAKAGE TESTER 08/03/2024 9:47 AM WASTE DISPOSAL LEAKAGE TESTER Hermelindo Butler MD LAB BLOOD ORDER ELANA Final Result Performing Organization Address City/[facility] Co de Phone Number [facility] [place] [address] * Immunotyping, serum with interpretation (08/03/2024 7:40 AM WASTE DISPOSAL LEAKAGE TESTER) Pathologist [facility] Immunosubtraction Please see comment Comment: NO PARAPROTEIN DETECTED Reviewed and signed by Hermelindo Mcnulty MD 08/04/2024 Blood 08/03/2024 7:40 AM WASTE DISPOSAL LEAKAGE TESTER 08/03/2024 8:24 AM WASTE DISPOSAL LEAKAGE TESTER Hermelindo Butler MD LAB BLOOD ORDER ELANA Final Result [facility] Department [place] [address] * (ABNORMAL) eGFR (08/03/2024 7:40 AM WASTE DISPOSAL LEAKAGE TESTER) Pathologist [facility] eGFR 37(L) >=60 mL/min/1. 73 m2 Comment: [...] last reviewed 2021. Blood 08/03/2024 7:40 AM WASTE DISPOSAL LEAKAGE TESTER 08/03/2024 7:49 AM WASTE DISPOSAL LEAKAGE TESTER Hermelindo Butler MD LAB BLOOD ORDER ELANA Final Result [facility] [place] [address] * (ABNORMAL) Differential, auto (08/03/2024 7:40 AM WASTE DISPOSAL LEAKAGE TESTER) Neutrophil abs 5.6 1.5 - 6.5 K/cumm Comment:Testing performed by : [facility], [address] [place] [phone] Lymphocyte abs 0.9 0.8 - 3.3 K/cumm [facility] Comment:Testing performed by : [facility], [address] [place] [phone] Monocyte abs 0.6 0.2 - 0.8 K/cumm [facility] Comment:Testing performed by : [facility], [address] [place] [address] Eosinophil abs 0.8(H) 0.0 - 0.5 K/cumm [facility] Comment:Testing performed by : [facility], [address] [place] [phone] Basophil abs 0.0 0.0 - 0.1 K/cumm [facility] Comment:Testing performed by : [facility], [address] [place] [address] Neutrophil pct 70.4 % [facility] Comment: Interpretive Data Percent cell count reference ranges are not reported, since discordance with absolute values may lead to misinterpretation of CBC data. Current Interpretive Data was last revised on 2017. Testing performed by: [facility], [address] [place] [phone] Lymphocyte pct 11.2 % [facility] Comment: Interpretive Data Percent cell count reference ranges are not reported, since discordance with absolute values may lead to misinterpretation of CBC data. Current Interpretive Data was last revised on 2017. Testing performed by: [facility], [address] [place] [phone] Monocyte pct 7.7 % [facility] Comment: Interpretive Data Percent cell count reference ranges are not reported, since discordance with absolute values may lead to misinterpretation of CBC data. Current Interpretive Data was last revised on 2017. Testing performed by: [facility], [address] [place] [phone] Eosinophil pct 10.1 % [facility] Comment: Interpretive Data Percent cell count reference ranges are not reported, since discordance with absolute values may lead to misinterpretation of CBC data. Current Interpretive Data was last revised on 2017. Testing performed by: [facility], [address] [place] [phone] Basophil pct 0.6 % MT [facility] Comment: Interpretive Data Percent cell count reference ranges are not reported, since discordance with absolute values may lead to misinterpretation of CBC data. Current Interpretive Data was last revised on 2017. Testing performed by: [facility], [address] [place] [phone] Blood 08/03/2024 7:40 AM WASTE DISPOSAL LEAKAGE TESTER 08/03/2024 7:47 AM WASTE DISPOSAL LEAKAGE TESTER Hermelindo Butler MD LAB BLOOD ORDER ELANA Final Result [facility] Department [place] [address] * (ABNORMAL) Immunoglobulin free light chains (08/03/2024 7:40 AM WASTE DISPOSAL LEAKAGE TESTER) [place]/Lambda ratio [facility] See Comment 0.26 - 1.65 Comment: Unable to calculate exact result. Interpretive Data The Binding Site FreeLite assay procedure was used. Results from different manufacturers or methods may not be comparable. Serial testing should be performed using the same methods and instrumentation. Current Interpretive Data was last revised on 2023. [place] free light chain [facility] <0.06(L) 0.33 - [...] revised on 2023. Blood 08/03/2024 7:40 AM WASTE DISPOSAL LEAKAGE TESTER 08/03/2024 8:24 AM WASTE DISPOSAL LEAKAGE TESTER Hermelindo Butler MD LAB BLOOD ORDER ELANA Final Result [facility] Department [place] [address] * (ABNORMAL) CBC with auto differential (08/03/2024 7:40 AM WASTE DISPOSAL LEAKAGE TESTER) WBC 7.9 3.8 - 9.9 K/cumm Comment:Testing performed by : [facility], [address] [place] [address] Hgb 13.7 13.0 - 17.5 g/dL [facility] SU[facility] Comment:Testing performed by : [facility], [address] [place] [address] Hct 41.5 38.9 - 50.3 % [facility] Comment:Testing performed by : [facility], [address] [place] [address] Plt 163 150 - 400 K/cumm [facility] Comment:Testing performed by : [facility], [address] [place] [address] MPV 7.8 6.8 - 10.4 fL [facility] Comment:Testing performed by : [facility], [address] [place] [address] RBC 4.50 4.30 - 5.80 M/cumm [facility] Comment:Testing performed by : [facility], [address] [place] [address] MCV 92.1 81.3 - 96.4 fL [facility] Comment:Testing performed by : [facility], [address] [place] [address] MCH 30.4 27.1 - 33.3 pg [facility] Comment:Testing performed by : [facility], [address] [place] [address] MCHC 33.0 32.3 - 35.7 g/dL [facility] Comment:Testing performed by : [facility], [address] [place] [phone] RDW CV 16.6(H) 11.1 - 14.9 % MT [facility] Comment:Testing performed by : [facility], [address] [place] [phone] NRBC abs 0.00 0.00 - 0.01 K/cumm MT [facility] Comment:Testing performed by : [facility], [address] [place] [phone] Blood 08/03/2024 7:40 AM WASTE DISPOSAL LEAKAGE TESTER 08/03/2024 7:47 AM WASTE DISPOSAL LEAKAGE TESTER us Hermelindo Butler MD LAB BLOOD ORDER ELANA Final Result [facility] Department [place] [address] * (ABNORMAL) Protein electrophoresis with reflex, serum with interpretation (08/03/2024 7:40 AM WASTE DISPOSAL LEAKAGE TESTER) Protein, sr 5.7(L) 6.2 - 8.2 g/dL [...] [facility] interp Please see comment [facility] Comment: No apparent monoclonal peak Decreased gamma globulins Electrophoretic pattern appears similar to previous sample 07/14/24 *See immunotyping for further information Reviewed and signed by Hermelindo Mcnulty MD 08/04/2024 Blood 08/03/2024 7:40 AM WASTE DISPOSAL LEAKAGE TESTER 08/03/2024 8:24 AM WASTE DISPOSAL LEAKAGE TESTER Hermelindo Butler MD LAB BLOOD ORDER ELANA Final Result Performing Organization Address City/[facility] de Phone Number [facility] [place] [address] * Magnesium (08/03/2024 7:40 AM WASTE DISPOSAL LEAKAGE TESTER) [facility] Magnesium 2.2 1.4 - 2.5 mg/dL Blood 08/03/2024 7:40 AM WASTE DISPOSAL LEAKAGE TESTER 08/03/2024 9:36 AM WASTE DISPOSAL LEAKAGE TESTER Hermelindo Butler MD LAB BLOOD ORDER ELANA Final Result Performing Organization Address [facility] de Phone Number [facility] [place] [address] * Lactate dehydrogenase (LD) (08/03/2024 7:40 AM WASTE DISPOSAL LEAKAGE TESTER) [facility] Lactate dehydrogenase (LDH) 172 100 - 250 Units/L Blood 08/03/2024 7:40 AM WASTE DISPOSAL LEAKAGE TESTER 08/03/2024 7:49 AM WASTE DISPOSAL LEAKAGE TESTER Hermelindo Butler MD LAB BLOOD ORDER ELANA Final Result Performing Organization Address [facility] [place] [address] * (ABNORMAL) Hemoglobin A1c (08/03/2024 7:40 AM WASTE DISPOSAL LEAKAGE TESTER) [facility] Hgb A1C 5.8(H) 4.0 - 5.6 % [...] a fasting glucose. Blood 08/03/2024 7:40 AM WASTE DISPOSAL LEAKAGE TESTER 08/03/2024 7:49 AM WASTE DISPOSAL LEAKAGE TESTER Lyndsey Fagan MECHANIC GENERAL OPERATIONAL TEST LAB BLOOD ORDERABLES Angeles l Result Performing Organization Address City/[facility] Co de Phone Number [facility] Department [place] [employer] [place] [address] * Gamma GT (08/03/2024 7:40 AM WASTE DISPOSAL LEAKAGE TESTER) Pathologist [facility] GGT 23 10 - 50 Units/L Blood 08/03/2024 7:40 AM WASTE DISPOSAL LEAKAGE TESTER 08/03/2024 9:36 AM WASTE DISPOSAL LEAKAGE TESTER Hermelindo Butler MD LAB BLOOD ORDER ELANA Final Result Performing Organization Address [facility] de Phone Number [facility] [place] [employer] [place] [address] * (ABNORMAL) IgA (08/03/2024 7:40 AM WASTE DISPOSAL LEAKAGE TESTER) [facility] Immunoglobulin A <50(L) 70 - 400 mg/dL Blood 08/03/2024 7:40 AM WASTE DISPOSAL LEAKAGE TESTER 08/03/2024 8:09 AM WASTE DISPOSAL LEAKAGE TESTER Hermelindo Butler MD LAB BLOOD ORDER ELANA Final Result Performing Organization Address [facility] de Phone Number [facility] [employer] [place] [address] * (ABNORMAL) IgM (08/03/2024 7:40 AM WASTE DISPOSAL LEAKAGE TESTER) Immunoglobulin M <25(L) 40 - 230 mg/dL Blood 08/03/2024 7:40 AM WASTE DISPOSAL LEAKAGE TESTER 08/03/2024 8:09 AM WASTE DISPOSAL LEAKAGE TESTER Hermelnido Butler MD LAB BLOOD ORDER ELANA Final Result Performing Organization Address City/[facility]/ZIP Co de Phone Number [facility] Department [place] [address] * (ABNORMAL) IgG (08/03/2024 7:40 AM WASTE DISPOSAL LEAKAGE TESTER) Pathologist [facility] Immunoglobulin G <300(L) 700 - 1,600 mg/dL Blood 08/03/2024 7:40 AM WASTE DISPOSAL LEAKAGE TESTER 08/03/2024 8:09 AM WASTE DISPOSAL LEAKAGE TESTER Hermelindo Butler MD LAB BLOOD ORDER ELANA Final Result Performing Organization Address [facility] de Phone Number [facility] [place] [address] * (ABNORMAL) Comprehensive metabolic panel (08/03/2024 7:40 AM WASTE DISPOSAL LEAKAGE TESTER) [facility] Sodium 141 135 - 145 mmol/L Potassium, [...] [facility] Blood 08/03/2024 7:40 AM WASTE DISPOSAL LEAKAGE TESTER 08/03/2024 7:49 AM WASTE DISPOSAL LEAKAGE TESTER us Hermelindo Butler MD LAB BLOOD ORDER ELANA Final Result [facility] Department [place] [address] * (ABNORMAL) Urinalysis reflex to microscopic and culture Urine, clean voided (08/03/2024 7:30 AM WASTE DISPOSAL LEAKAGE TESTER) Color, ur Straw Yellow Clarity, ur Clear [...] tendency for uric acid stone formation. Source: [facility] [employer] Current Interpretive Data was last revised on [...] HOSPITAL Urine, clean voided 08/03/2024 7:30 AM WASTE DISPOSAL LEAKAGE TESTER 08/03/2024 7:30 AM WASTE DISPOSAL LEAKAGE TESTER Lyndsey Fagan NP LAB MICROBIOLOGY - GENERA L ORDERABLES Final Result Performing Organization Address [facility] de Phone Number [facility] [place] [address] * (ABNORMAL) Urinalysis, microscopic only (08/03/2024 7:30 AM WASTE DISPOSAL LEAKAGE TESTER) WBC, ur 6-10(A) 0 - 5 /HPF RBC, ur 11-20(A) 0 - 2 /HPF [facility] Epithelial cells, squamous, ur 1-5 0 - 5 /HPF [facility] Bacteria, ur Trace(A) [facility] Culture Reflex Comment Reflex conditions for urine culture (WBC >10) not met. [facility] Urine, clean voided 08/03/2024 7:30 AM WASTE DISPOSAL LEAKAGE TESTER 08/03/2024 7:30 AM WASTE DISPOSAL LEAKAGE TESTER Lyndsey Fagan NP LAB URINE ORDERABLES Angeles l Result Performing Organization Address [facility] de Phone Number [facility] [place] [address] * Urine culture Urine, clean voided (08/03/2024 7:30 AM WASTE DISPOSAL LEAKAGE TESTER) Report Final Report: No growth Urine, clean voided 08/03/2024 7:30 AM WASTE DISPOSAL LEAKAGE TESTER 08/03/2024 9:59 AM WASTE DISPOSAL LEAKAGE TESTER Narrative [facility] - 08/04/2024 11:14 AM WASTE DISPOSAL LEAKAGE TESTER Testing performed by [facility] Microbiology Laboratory ([phone]) Hermelindo Butler MD LAB MICROBIOLOG Y - GENERAL ORDERABLES Final Result [facility] Department [place] [address] * Immunotyping, serum with interpretation (07/13/2024 7:40 AM WASTE DISPOSAL LEAKAGE TESTER) Pathologist [facility] Immunosubtraction Please see comment Comment: NO PARAPROTEIN DETECTED Reviewed and signed by Rufino Huff MD, PhD 07/14/2024 Blood 07/13/2024 7:40 AM WASTE DISPOSAL LEAKAGE TESTER 07/13/2024 8:42 AM WASTE DISPOSAL LEAKAGE TESTER Hermelindo Butler MD LAB BLOOD ORDER ELANA Final Result [facility] [place] [address] * (ABNORMAL) eGFR (07/13/2024 7:40 AM WASTE DISPOSAL LEAKAGE TESTER) Pathologist [facility] eGFR 57(L) >=60 mL/min/1. [...] last reviewed 2021. Blood 07/13/2024 7:40 AM WASTE DISPOSAL LEAKAGE TESTER 07/13/2024 7:47 AM WASTE DISPOSAL LEAKAGE TESTER Hermelindo Butler MD LAB BLOOD ORDER ELANA Final Result [facility] Department [place] [address] * Differential, auto (07/13/2024 7:40 AM WASTE DISPOSAL LEAKAGE TESTER) Neutrophil abs 5.4 1.5 - 6.5 K/cumm Comment:Testing performed by : [facility], [address] [place] [phone] Lymphocyte abs 0.9 0.8 - 3.3 K/cumm CERNER BJ Comment:Testing performed by : [facility], [address] [place] [phone] Monocyte abs 0.5 0.2 - 0.8 K/cumm CERNER BJ Comment:Testing performed by : [facility], [address] [place] [phone] Eosinophil abs 0.5 0.0 - 0.5 K/cumm CERNER BJ Comment:Testing performed by : [facility], [address] [place] [phone] Basophil abs 0.0 0.0 - 0.1 K/cumm CERNER BJ Comment:Testing performed by : [facility], [address] [place] [phone] Neutrophil pct 73.6 % CERNER BJ Comment: Interpretive Data Percent cell count reference ranges are not reported, since discordance with absolute values may lead to misinterpretation of CBC data. Current Interpretive Data was last revised on 2017. Testing performed by: [facility], [address] [place] [phone] Lymphocyte pct 12.0 % CERNER BJ Comment: Interpretive Data Percent cell count reference ranges are not reported, since discordance with absolute values may lead to misinterpretation of CBC data. Current Interpretive Data was last revised on 2017. Testing performed by: [facility], [address] [place] [phone] Monocyte pct 7.4 % CERNER BJ Comment: Interpretive Data Percent cell count reference ranges are not reported, since discordance with absolute values may lead to misinterpretation of CBC data. Current Interpretive Data was last revised on 2017. Testing performed by: [facility], [address] [place] [phone] Eosinophil pct 6.5 % MT SUAREZ Comment: Interpretive Data Percent cell count reference ranges are not reported, since discordance with absolute values may lead to misinterpretation of CBC data. Current Interpretive Data was last revised on 2017. Testing performed by: [facility], [address] [place] [phone] Basophil pct 0.5 % MT SUAREZ Comment: Interpretive Data Percent cell count reference ranges are not reported, since discordance with absolute values may lead to misinterpretation of CBC data. Current Interpretive Data was last revised on 2017. Testing performed by: [facility], [address] [place] [phone] Blood 07/13/2024 7:40 AM WASTE DISPOSAL LEAKAGE TESTER 07/13/2024 7:46 AM WASTE DISPOSAL LEAKAGE TESTER Hermelindo Butler MD LAB BLOOD ORDER ELANA Final Result MT [facility] Department [place] [address] * (ABNORMAL) Immunoglobulin free light chains (07/13/2024 7:40 AM WASTE DISPOSAL LEAKAGE TESTER) [place]/Lambda ratio [facility] See Comment 0.26 - 1.65 Comment: Unable to calculate exact result. Interpretive Data The Binding Site FreeLite assay procedure was used. Results from different manufacturers or methods may not be comparable. Serial testing should be performed using the same methods and instrumentation. Current Interpretive Data was last revised on 2023. [place] free light chain [facility] <0.06(L) 0.33 - 1.94 mg/dL MT SUAREZ Comment: Interpretive Data The Binding Site FreeLite assay procedure was used. Results from different manufacturers or methods may not be comparable. Serial testing should be performed using the same methods and instrumentation. Current Interpretive Data was last revised on 2023. L[place] free light chain BJ <0.13(L) 0.57 - 2.63 mg/dL MT SUAREZ Comment: Interpretive Data The Binding Site FreeLite assay procedure was used. Results from different manufacturers or methods may not be comparable. Serial testing should be performed using the same methods and instrumentation. Current Interpretive Data was last revised on 2023. Blood 07/13/2024 7:40 AM WASTE DISPOSAL LEAKAGE TESTER 07/13/2024 8:42 AM WASTE DISPOSAL LEAKAGE TESTER us Hermelindo Butler MD LAB BLOOD ORDER ELANA Final Result MT [facility] Department [place] [address] * (ABNORMAL) CBC with auto differential (07/13/2024 7:40 AM WASTE DISPOSAL LEAKAGE TESTER) WBC 7.4 3.8 - 9.9 K/cumm Comment:Testing performed by : [facility], [address] [place] [address] Hgb 14.4 13.0 - 17.5 g/dL MT SUAREZ Comment:Testing performed by : [facility], [address] [place] [address] Hct 44.1 38.9 - 50.3 % CERFRANK SUAREZ Comment:Testing performed by : [facility], [address] [place] [address] Plt 174 150 - 400 K/cumm CERFRANK BJ Comment:Testing performed by : [facility], [address] [place] [address] MPV 7.5 6.8 - 10.4 fL CERFRANK BJ Comment:Testing performed by : [facility], [address] [place] [address] RBC 4.75 4.30 - 5.80 M/cumm MT BJ Comment:Testing performed by : [facility], [address] [place] [phone] MCV 92.8 81.3 - 96.4 fL [facility] Comment:Testing performed by : [facility], [address] [place], [place] [phone] MCH 30.2 27.1 - 33.3 pg MT SUAREZ Comment:Testing performed by : [facility], [address] [place], [place] [phone] MCHC 32.6 32.3 - 35.7 g/dL MT [facility] Comment:Testing performed by : [facility], [address] [place], [place] [phone] RDW CV 16.2(H) 11.1 - 14.9 % MT [facility] Comment:Testing performed by : [facility], [address] [place], [place] [phone] NRBC abs 0.00 0.00 - 0.01 K/cumm MT [facility] Comment:Testing performed by : [facility], [address] [place] [address] Blood 07/13/2024 7:40 AM WASTE DISPOSAL LEAKAGE TESTER 07/13/2024 7:46 AM WASTE DISPOSAL LEAKAGE TESTER Hermelindo Butler MD LAB BLOOD ORDER ELANA Final Result [facility] Department [place] [address] * (ABNORMAL) Protein electrophoresis with reflex, serum with interpretation (07/13/2024 7:40 AM WASTE DISPOSAL LEAKAGE TESTER) Protein, sr 5.7(L) 6.2 - 8.2 g/dL [...] MD, PhD 07/14/2024 Blood 07/13/2024 7:40 AM WASTE DISPOSAL LEAKAGE TESTER 07/13/2024 8:42 AM WASTE DISPOSAL LEAKAGE TESTER Hermelindo Butler MD LAB BLOOD ORDER ELANA Final Result Performing Organization Address City/[facility] Co de Phone Number [facility] [employer] [place] [address] * Magnesium (07/13/2024 7:40 AM WASTE DISPOSAL LEAKAGE TESTER) Pathologist [facility] Magnesium 2.2 1.4 - 2.5 mg/dL Blood 07/13/2024 7:40 AM WASTE DISPOSAL LEAKAGE TESTER 07/13/2024 7:47 AM WASTE DISPOSAL LEAKAGE TESTER Hermelindo Butler MD LAB BLOOD ORDER ELANA Final Result Performing Organization Address [facility] de Phone Number [facility] [place] [employer] [place] [address] * Lactate dehydrogenase (LD) (07/13/2024 7:40 AM WASTE DISPOSAL LEAKAGE TESTER) Lactate dehydrogenase (LDH) 152 100 - 250 Units/L Blood 07/13/2024 7:40 AM WASTE DISPOSAL LEAKAGE TESTER 07/13/2024 7:47 AM WASTE DISPOSAL LEAKAGE TESTER Hermelindo Butler MD LAB BLOOD ORDER ELANA Final Result Performing Organization Address [facility] Co de Phone Number [facility] [place] [address] * Gamma GT (07/13/2024 7:40 AM WASTE DISPOSAL LEAKAGE TESTER) GGT 27 10 - 50 Units/L Blood 07/13/2024 7:40 AM WASTE DISPOSAL LEAKAGE TESTER 07/13/2024 7:47 AM WASTE DISPOSAL LEAKAGE TESTER Hermelindo Butler MD LAB BLOOD ORDER ELANA Final Result Performing Organization Address City/[facility]/ZIP Co de Phone Number [facility] Department [place] [address] * (ABNORMAL) IgA (07/13/2024 7:40 AM WASTE DISPOSAL LEAKAGE TESTER) Pathologist [facility] Immunoglobulin A <50(L) 70 - 400 mg/dL Blood 07/13/2024 7:40 AM WASTE DISPOSAL LEAKAGE TESTER 07/13/2024 7:59 AM WASTE DISPOSAL LEAKAGE TESTER Hermelindo Butler MD LAB BLOOD ORDER ELANA Final Result Performing Organization Address [facility] Co de Phone Number [facility] Department [place] [address] * (ABNORMAL) IgM (07/13/2024 7:40 AM WASTE DISPOSAL LEAKAGE TESTER) Pathologist [facility] Immunoglobulin M <25(L) 40 - 230 mg/dL Blood 07/13/2024 7:40 AM WASTE DISPOSAL LEAKAGE TESTER 07/13/2024 7:59 AM WASTE DISPOSAL LEAKAGE TESTER Hermelindo Butler MD LAB BLOOD ORDER ELANA Final Result Performing Organization Address City/[facility] Co de Phone Number [facility] [place] [place] [address] * (ABNORMAL) IgG (07/13/2024 7:40 AM WASTE DISPOSAL LEAKAGE TESTER) Immunoglobulin G <300(L) 700 - 1,600 mg/dL Blood 07/13/2024 7:40 AM WASTE DISPOSAL LEAKAGE TESTER 07/13/2024 7:59 AM WASTE DISPOSAL LEAKAGE TESTER us Hermelindo Butler MD LAB BLOOD ORDER ELANA Final Result [facility] Department [place] [address] * (ABNORMAL) Comprehensive metabolic panel (07/13/2024 7:40 AM WASTE DISPOSAL LEAKAGE TESTER) Sodium 144 135 - 145 mmol/L Potassium, pl 4.2 3.3 - 4.9 mmol/L CERNER [facility] Chloride 107 97 - 110 mmol/L CERNER [facility] CO2 33(H) 22 - 32 mmol/L CERNER [facility] Anion gap 4 2 - 15 mmol/L CERNER [facility] BUN 29(H) 6 - 25 mg/dL [facility] Creatinine 1.34(H) 0.80 - 1.30 mg/dL CERNER [facility] Glucose 125 70 - 199 mg/dL [...] Calcium 9.4 8.5 - 10.3 mg/dL CERNER [facility] Bilirubin, total 0.7 0.1 - 1.2 mg/dL CERNER [facility] Protein, pl 6.2(L) 6.5 - 8.5 g/dL CERNER BJ Albumin 4.1 3.5 - 5.0 g/dL CERNER [facility] Alk phos 65 40 - 130 Units/L CERNER BJ ALT 18 7 - 55 Units/L CERNER BJ AST 16 10 - 50 Units/L [facility] Blood 07/13/2024 7:40 AM WASTE DISPOSAL LEAKAGE TESTER 07/13/2024 7:47 AM WASTE DISPOSAL LEAKAGE TESTER Hermelindo Butler MD LAB BLOOD ORDER ELANA Final Result Performing Organization Address [facility] de Phone Number [facility] [place] [address] * aPTT (07/13/2024 7:24 AM WASTE DISPOSAL LEAKAGE TESTER) aPTT 28 28 - 38 sec Comment: Interpretive Data Heparin therapeutic range: 66.0 - 100.0 seconds. Range based on correlation with therapeutic heparin activity range of 0.3 - 0.7 Units/mL. Current interpretive data was last revised on 2023. Blood 07/13/2024 7:24 AM WASTE DISPOSAL LEAKAGE TESTER 07/13/2024 7:59 AM WASTE DISPOSAL LEAKAGE TESTER Hermelindo Butler MD LAB BLOOD ORDER ELANA Final Result Performing Organization Address [facility] de Phone Number [facility] [place] [address] * Protime-INR (07/13/2024 7:24 AM WASTE DISPOSAL LEAKAGE TESTER) PT 11.5 9.7 - 13.0 sec INR 1.06 0.90 - 1.20 [facility] Comment: Interpretive data Oral anticoagulant therapeutic ranges: Venous thromboembolism prophylaxis or treatment: 2.0-3.0 CARDIOLOGY Standard range: 2.0-3.0 High-intensity range: 2.5-3.5 Refer to indication-specific guidelines for appropriate target ranges for prosthetic heart valve replacement. Current interpretive data was last revised on 2019. Blood 07/13/2024 7:24 AM WASTE DISPOSAL LEAKAGE TESTER 07/13/2024 7:59 AM WASTE DISPOSAL LEAKAGE TESTER us Hermelindo Butler MD LAB BLOOD ORDER ELANA Final Result Performing Organization Address [facility]/ZIP Co de Phone Number [facility] Department [place] [address] * Immunotyping, serum (06/22/2024 7:20 AM WASTE DISPOSAL LEAKAGE TESTER) Pathologist [facility] Immunosubtraction Please see comment Comment: NO PARAPROTEIN DETECTED Reviewed and signed by Fernando Nunez MD, PhD 06/23/2024 Blood 06/22/2024 7:20 AM WASTE DISPOSAL LEAKAGE TESTER 06/22/2024 10:03 AM WASTE DISPOSAL LEAKAGE TESTER us Hermelindo Butler MD LAB BLOOD ORDER ELANA Final Result MT [facility] Department [place] [address] * eGFR (06/22/2024 7:20 AM WASTE DISPOSAL LEAKAGE TESTER) [facility] eGFR 66 >=60 mL/min/1. 73 m2 Comment: [...] last reviewed 2021. Blood 06/22/2024 7:20 AM WASTE DISPOSAL LEAKAGE TESTER 06/22/2024 8:12 AM WASTE DISPOSAL LEAKAGE TESTER Hermelindo Butler MD LAB BLOOD ORDER ELANA Final Result MT [facility] Department [place] [address] * Differential, auto (06/22/2024 7:20 AM WASTE DISPOSAL LEAKAGE TESTER) Neutrophil abs 5.4 1.5 - 6.5 K/cumm Comment:Testing performed by : [facility], [address] [place] [phone] Lymphocyte abs 0.9 0.8 - 3.3 K/cumm CERNER [facility] Comment:Testing performed by : [facility], [address] [place] [phone] Monocyte abs 0.5 0.2 - 0.8 K/cumm CERNER BJ Comment:Testing performed by : [facility], [address] [place] [phone] Eosinophil abs 0.2 0.0 - 0.5 K/cumm CERNER [facility] Comment:Testing performed by : [facility], [address] [place] [phone] Basophil abs 0.0 0.0 - 0.1 K/cumm CERNER [facility] Comment:Testing performed by : [facility], [address] [place] [phone] Neutrophil pct 75.7 % CERNER BJ Comment: Interpretive Data Percent cell count reference ranges are not reported, since discordance with absolute values may lead to misinterpretation of CBC data. Current Interpretive Data was last revised on 2017. Testing performed by: [facility], [address] [place] [phone] Lymphocyte pct 13.1 % CERNER BJ Comment: Interpretive Data Percent cell count reference ranges are not reported, since discordance with absolute values may lead to misinterpretation of CBC data. Current Interpretive Data was last revised on 2017. Testing performed by: [facility], [address] [place] [phone] Monocyte pct 7.1 % CERNER BJ Comment: Interpretive Data Percent cell count reference ranges are not reported, since discordance with absolute values may lead to misinterpretation of CBC data. Current Interpretive Data was last revised on 2017. Testing performed by: [facility], [address] [place] [phone] Eosinophil pct 3.5 % MT SUAREZ Comment: Interpretive Data Percent cell count reference ranges are not reported, since discordance with absolute values may lead to misinterpretation of CBC data. Current Interpretive Data was last revised on 2017. Testing performed by: [facility], [address] [place] [phone] Basophil pct 0.6 % MT SUAREZ Comment: Interpretive Data Percent cell count reference ranges are not reported, since discordance with absolute values may lead to misinterpretation of CBC data. Current Interpretive Data was last revised on 2017. Testing performed by: [facility], [address] [place] [phone] Blood 06/22/2024 7:20 AM WASTE DISPOSAL LEAKAGE TESTER 06/22/2024 8:08 AM WASTE DISPOSAL LEAKAGE TESTER Hermelindo Butler MD LAB BLOOD ORDER ELANA Final Result MT SU[facility] Department [place] [address] * (ABNORMAL) Immunoglobulin free light chains (06/22/2024 7:20 AM WASTE DISPOSAL LEAKAGE TESTER) [place]/Lambda ratio [facility] See Comment 0.26 - 1.65 Comment: Unable to calculate exact result. Interpretive Data The Binding Site FreeLite assay procedure was used. Results from different manufacturers or methods may not be comparable. Serial testing should be performed using the same methods and instrumentation. Current Interpretive Data was last revised on 2023. [place] [facility] <0.06(L) 0.33 - 1.94 mg/dL MT SUAREZ [...] revised on 2023. Blood 06/22/2024 7:20 AM WASTE DISPOSAL LEAKAGE TESTER 06/22/2024 9:53 AM WASTE DISPOSAL LEAKAGE TESTER us Hermelindo Butler MD LAB BLOOD ORDER ELANA Final Result MT [facility] Department [place] [address] * (ABNORMAL) CBC with auto differential (06/22/2024 7:20 AM WASTE DISPOSAL LEAKAGE TESTER) WBC 7.1 3.8 - 9.9 K/cumm Comment:Testing performed by : [facility], [address] [place] [address] Hgb 14.6 13.0 - 17.5 g/dL CER[facility]ANK BJ Comment:Testing performed by : [facility], [address] [place] [address] Hct 45.6 38.9 - 50.3 % CER[facility]ANK BJ Comment:Testing performed by : [facility], [address] [place] [address] Plt 196 150 - 400 K/cumm [facility]ER[facility] BJ Comment:Testing performed by : [facility], [address] [place] [address] MPV 8.3 6.8 - 10.4 fL [facility]ER[facility] BJ Comment:Testing performed by : [facility], [address] [place] [address] RBC 4.88 4.30 - 5.80 M/cumm [facility]ER[facility] BJ Comment:Testing performed by : [facility], [address] [place] [address] MCV 93.5 81.3 - 96.4 fL [facility] Comment:Testing performed by : [facility], [address] [place], [place] [id number] MCH 29.9 27.1 - 33.3 pg MT [facility] Comment:Testing performed by : [facility], [address] [place] [address] MCHC 31.9(L) 32.3 - 35.7 g/dL MT [facility] Comment:Testing performed by : [facility], [address] [place] [address] RDW CV 16.0(H) 11.1 - 14.9 % MT [facility] Comment:Testing performed by : [facility], [address] [place] [address] NRBC abs 0.20(H) 0.00 - 0.01 K/cumm MT [facility] Comment:Testing performed by : [facility], [address] [place] [address] Blood 06/22/2024 7:2 0 AM WASTE DISPOSAL LEAKAGE TESTER 06/22/2024 8:08 AM WASTE DISPOSAL LEAKAGE TESTER Hermelindo Butler MD LAB BLOOD ORDER ELANA Final Result [facility] Department [place] [address] * aPTT (06/22/2024 7:20 AM WASTE DISPOSAL LEAKAGE TESTER) aPTT 29 28 - 38 sec Comment: Interpretive Data Heparin therapeutic range: 66.0 - 100.0 seconds. Range based on correlation with therapeutic heparin activity range of 0.3 - 0.7 Units/mL. Current interpretive data was last revised on 2023. Blood 06/22/2024 7:20 AM WASTE DISPOSAL LEAKAGE TESTER 06/22/2024 9:50 AM WASTE DISPOSAL LEAKAGE TESTER Hermelindo Butler MD LAB BLOOD ORDER ELANA Final Result Performing Organization Address [facility] de Phone Number [facility] Department [place] [address] * Protime-INR (06/22/2024 7:20 AM WASTE DISPOSAL LEAKAGE TESTER) Pathologist [facility] PT 10.9 9.7 - 13.0 sec INR 1.01 0.90 - 1.20 [facility] Comment: Interpretive data Oral anticoagulant therapeutic ranges: Venous thromboembolism prophylaxis or treatment: 2.0-3.0 CARDIOLOGY Standard range: 2.0-3.0 High-intensity range: 2.5-3.5 Refer to indication-specific guidelines for appropriate target ranges for prosthetic heart valve replacement. Current interpretive data was last revised on 2019. Blood 06/22/2024 7:20 AM WASTE DISPOSAL LEAKAGE TESTER 06/22/2024 9:50 AM WASTE DISPOSAL LEAKAGE TESTER Hermelindo Butler MD LAB BLOOD ORDER ELANA Final Result Performing Organization Address [facility] de Phone Number [facility] Department [place] [address] * (ABNORMAL) Protein electrophoresis with reflex, serum (06/22/2024 7:20 AM WASTE DISPOSAL LEAKAGE TESTER) Pathologist [facility] Protein, sr 5.9(L) 6.2 [...] [facility] interp Please see comment [facility] Comment: No apparent monoclonal peak Decreased gamma globulins Electrophoretic pattern appears similar to previous sample 05-19-24 See immunotyping for further information Reviewed and signed by Fernando Nunez MD, PhD 06/23/2024 Immunotyping See Immunotyping Results [facility] Blood 06/22/2024 7:20 AM WASTE DISPOSAL LEAKAGE TESTER 06/22/2024 9:55 AM WASTE DISPOSAL LEAKAGE TESTER Hermelindo Butler MD LAB BLOOD ORDER ELANA Final Result Performing Organization Address City/State/[facility] Co de Phone Number [facility] Department [place] [employer] [place] [address] * Magnesium (06/22/2024 7:20 AM WASTE DISPOSAL LEAKAGE TESTER) Magnesium 2.2 1.4 - 2.5 mg/dL Blood 06/22/2024 7:20 AM WASTE DISPOSAL LEAKAGE TESTER 06/22/2024 8:12 AM WASTE DISPOSAL LEAKAGE TESTER Hermelindo Butler MD LAB BLOOD ORDER ELANA Final Result Performing Organization Address City/[facility] de Phone Number [facility] [place] [address] * Lactate dehydrogenase (LD) (06/22/2024 7:20 AM WASTE DISPOSAL LEAKAGE TESTER) Lactate dehydrogenase (LDH) 157 100 - 250 Units/L Blood 06/22/2024 7:20 AM WASTE DISPOSAL LEAKAGE TESTER 06/22/2024 8:12 AM WASTE DISPOSAL LEAKAGE TESTER Hermelindo Butler MD LAB BLOOD ORDER ELANA Final Result Performing Organization Address City/[facility] de Phone Number [facility] [place] [address] * Gamma GT (06/22/2024 7:20 AM WASTE DISPOSAL LEAKAGE TESTER) GGT 30 10 - 50 Units/L Blood 06/22/2024 7:20 AM WASTE DISPOSAL LEAKAGE TESTER 06/22/2024 8:12 AM WASTE DISPOSAL LEAKAGE TESTER us Hermelindo Butler MD LAB BLOOD ORDER ELANA Final Result Performing Organization Address [facility] de Phone Number [facility] [place] [address] * (ABNORMAL) IgA (06/22/2024 7:20 AM WASTE DISPOSAL LEAKAGE TESTER) Immunoglobulin A <50(L) 70 - 400 mg/dL Blood 06/22/2024 7:20 AM WASTE DISPOSAL LEAKAGE TESTER 06/22/2024 9:49 AM WASTE DISPOSAL LEAKAGE TESTER us Hermelindo Butler MD LAB BLOOD ORDER ELANA Final Result Performing Organization Address [facility] de Phone Number [facility] Department [place] [address] * (ABNORMAL) IgM (06/22/2024 7:20 AM WASTE DISPOSAL LEAKAGE TESTER) Immunoglobulin M <25(L) 40 - 230 mg/dL Blood 06/22/2024 7:20 AM WASTE DISPOSAL LEAKAGE TESTER 06/22/2024 9:49 AM WASTE DISPOSAL LEAKAGE TESTER us Hermelindo Butler MD LAB BLOOD ORDER ELANA Final Result Performing Organization Address [facility] de Phone Number [facility] Department [place] [address] * (ABNORMAL) IgG (06/22/2024 7:20 AM WASTE DISPOSAL LEAKAGE TESTER) Immunoglobulin G 423(L) 700 - 1,600 mg/dL Blood 06/22/2024 7:20 AM WASTE DISPOSAL LEAKAGE TESTER 06/22/2024 9:49 AM WASTE DISPOSAL LEAKAGE TESTER us Hermelindo Butler MD LAB BLOOD ORDER ELANA Final Result MT [facility] Department [place] [address] * (ABNORMAL) Comprehensive metabolic panel (06/22/2024 7:20 AM WASTE DISPOSAL LEAKAGE TESTER) Sodium 141 135 - 145 mmol/L Potassium, pl 4.1 3.3 - 4.9 mmol/L [facility] Chloride 104 97 - 110 mmol/L [facility] CO2 31 22 - 32 mmol/L [facility] Anion gap 6 2 - 15 mmol/L [facility] BUN 24 6 - 25 mg/dL [facility] Creatinine 1.18 0.80 - 1.30 mg/dL [facility] Glucose 111 70 - 199 mg/dL [...] 2022. Calcium 9.5 8.5 - 10.3 mg/dL [facility] Bilirubin, total 0.7 0.1 - 1.2 mg/dL [facility] Protein, pl 6.3(L) 6.5 - 8.5 g/dL [facility] Albumin 3.8 3.5 - 5.0 g/dL [facility] Alk phos 63 40 - 130 Units/L [facility] ALT 18 7 - 55 Units/L [facility] AST 20 10 - 50 Units/L [facility] Blood 06/22/2024 7:20 AM WASTE DISPOSAL LEAKAGE TESTER 06/22/2024 8:12 AM WASTE DISPOSAL LEAKAGE TESTER us Hermelindo Butler MD LAB BLOOD ORDER ELANA Final Result Performing Organization Address City/[facility]/ZIP Co de Phone Number [facility] Department [place] [address] * Hepatitis C antibody (10/16/2021 9:50 AM CDT) Hep C Ab Nonreactive Nonreactive MT [facility] Comment:Antibodies to HCV no t detected. Does NOT exclude the possibility of recent exposure to HCV. Blood 10/16/2021 9:50 AM CDT 10/16/2021 11:22 AM CDT Hermelindo dupree MD LAB MICROBIOLOGY - GENERAL ORDERABLES Edited Result - Final MT [facility] [place] [address] from Last 3 Months or Most Recently Relevant to Health Maintenance Insurance MEDICARE [employer] SENIOR SUPPLEMENT MEDICARE [employer] SENIOR SUPPLEMENT MEDICARE [employer] SENIOR SUPPLEMENT Advance Directives For more information, please contact: [phone] Documents on File Type Date Recorded Patient Appeals Analyst Expl anation ADVANCE DIRECTIVE 11/29/2017 11:05 AM 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 ADVANCE DIRECTIVE 11/12/2017 3:59 PM POWER OF BOILER REPAIR SUPERVISOR * Full Code (Latest Code Status on [...] 9:21 AM 05/30/2021 1:44 PM Care Teams Zinc Plate Grainer Relationship Specialty Start Date End Date Jatin Gamble MD [address] [place] [address] PCP - General 10/07/16 Hermelindo Butler MD [address] [place] [address] Medical Oncologist/Hematologi Medical Oncology 12/02/17 Roberto Rojo MD [address] [place] [address] Medical Oncologist/Hematologi Hematology and Oncology 12/02/17 Jatin Gamble MD [address] [place] [address] Referring Physician Internal Medicine 12/02/17 Lyndsey Fagan NP [address] [place] [address] Nurse Practitioner Medical Oncology 08/03/20 Erlin Servin MD [address] [place] [address] Consulting Physician Otolaryngology 10/04/22 [place] [address] [place] [address] Consulting Physician Urology 05/28/23
--- OUTSIDE RECORDS SUMMARY | 2024-09-09 17:11 | XMS_ITS | Encounter Summary ---
Author Organization [facility] Healthcare Address [address] [place] [address] Care Team Providers Care Warehouse Manager Name Role Phone Jatin Gamble MD Primary Care Provider Hermelindo Butler MD Unavailable Roberto Rojo MD Unavailable [phone] Jatin Gamble MD Unavailable [phone] Garry Dukes MD Unavailable [phone] Lyndsey Fagan NP Unavailable Erlin Servin MD Unavailable [phone] Julian Valdez MD Unavailable Encounter Details Date Type Department Care Team (Late st Contact Info) Description 04/29/2022 Community Orders [facility] EpicCare Link Jatin Gamble MD [address] [place] [address] Elevated prostate specific antigen (PSA) (Primary Dx) Social History Tobacco Use Types Packs/Day Years Used Date Smoking Tobacco: Never Smokeless Tobacco: Never Alcohol Use Standard Drinks/Week Comments No 0 (1 standard drink = 0.6 oz pur e alcohol) Sex and Gender Information Value Date Recorded Sex Assigned at Not on file 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 Medical Oncology 12/02/17 Roberto Rojo MD [address] [place] [address] Medical Oncologist/[facility] Hematology and Oncology 12/02/17 Jatin Gamble MD [address] [place] [address] Referring Physician Internal Medicine 12/02/17 Garry Dukes MD [address] [place] [address] Referring Physician Urology 12/02/17 05/27/23 Lyndsey Fagan NP [address] [place] [address] Nurse Practitioner Medical Oncology 08/03/20 Erlin Servin MD [address] [place] [address] Consulting Physician Otolaryngology 10/04/22 [place] [address] [place] [address] Consulting Physician Urology 05/28/23 documented as of this encounter
--- OUTSIDE RECORDS SUMMARY | 2024-09-09 17:11 | XMS_ITS | Clinical Summary ---
Author Organization [facility] Address [address] [place] [address] Care Team Providers Care Shear Setter Name Role Phone Unavailable Primary Care Provider [...]
--- OUTSIDE RECORDS SUMMARY | 2024-09-09 17:11 | XMS_ITS | Clinical Summary ---
Author Organization [facility] Address [address] [place] [address] Care Team Providers Care Income Tax Manager Name Role Phone Jatin Gamble MD Primary Care Provider [phone] Hermelindo Butler MD Unavailable Roberto Rojo MD Unavailable [phone] Jatin Gamble MD Unavailable [phone] Lyndsey Fagan NP Unavailable Erlin Servin MD Unavailable [phone] Julian Valdez MD Unavailable Allergies Active Allergy [...] day for 7 days 14 tablet 08/03/19 025 Active Problems Patient Care Coordination No te Formatting of this note is d ifferent from the original. 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 Assessment & Plan (07/09/2022 7:42 PM TELEGRAPH REPEATER TECHNICIAN): I talked with him quite a bit [...] weeks. Assessment & Plan (05/26/2022 4:16 PM TELEGRAPH REPEATER TECHNICIAN): He does have pretty significant sinusitis and [...] day. Assessment & Plan (05/26/2022 4:17 PM TELEGRAPH REPEATER TECHNICIAN): It is very possible that his cough could be due to sinusitis also. Hopefully that will continue to improve as we treat. He understands. Immunocompromised 11/13/2021 Multiple myeloma not having achieved remission 0 10/28/2021 Cancer Staging:Clinical stage from 10/16/2021:RISS Stage II(Gagp-0-ecpptikxfipwn (mg/L): 3.7, Albumin (g/dL): 4.2, ISS: Stage [...] and Dexamethasone in June 2021 Clinical trial [id number] initiated on 10/29/21; C46D1 08/03/24. BMT following [...] he got a TTE on 10/19 at [place] however unclear why not currently in the system - May need to repeat TTE prior to treatment if results unavailable - Continue OI ppx with acyclovir 400mg BID - Begin trial [id number], a Bispecific Antibody Targeting BCMA treatment - [...] he got a TTE on 10/19 at [place] however unclear why not currently in the system - May need to repeat TTE prior to treatment if results unavailable - Continue OI ppx with acyclovir 400mg BID - Begin trial [id number], a Bispecific Antibody Targeting BCMA treatment - [...] BID Assessment & Plan (05/31/2021 10:51 AM TELEGRAPH REPEATER TECHNICIAN): Continue home pepcid, asx Renal mass 05/30/2021 Assessment & Plan (05/31/2021 10:51 AM TELEGRAPH REPEATER TECHNICIAN): Admitted for observation after L renal mass [...] 07/17/2023 Assessment & Plan (05/31/2021 10:52 AM TELEGRAPH REPEATER TECHNICIAN): Follows with oncology on daratumumab monotherapy -counts [...] blood in urine Follow up pathology from [facility] high-grade papillary urothelial carcinoma (grade 2) --follow [...] blood in urine Follow up pathology from befgewpih-thd-snveqttm high-grade papillary urothelial carcinoma (grade 2) --follow [...] supplementation Assessment & Plan (05/31/2021 10:51 AM TELEGRAPH REPEATER TECHNICIAN): Stable on home losartan, nebivolol, triamterene-HCTZ Secondary [...] Department Care Team Description 09/07/2024 Orders Only [facility] 6 [place] [address] Hermelindo Hill MD 09/06/2024 Orders Only [facility] [address] [place] [phone] Lyndsey Fagan NP 08/31/2024 10:00 AM CDT Infusion [facility] - Infusion [address] [facility] Floor 6 [place] [address] Multiple myeloma in relapse (HCC) (Primary Dx); Multiple myeloma in remission (HCC) 08/31/2024 9:00 AM CDT Office Visit [facility] [address] [place] [phone] Hermelindo Hill MD Multiple myeloma in relapse (HCC) (Primary Dx); Multiple myeloma in remission (HCC) 08/31/2024 8:45 AM CDT Clinical Support [facility] - Lab Collection [facility] [address] [address] Multiple myeloma in relapse (HCC); Multiple myeloma not having achieved remission (HCC); Multiple myeloma, remission status unspecified (HCC) 08/31/2024 8:15 AM CDT Clinical Support [facility] [address] [place] [phone] Multiple myeloma not having achieved remission (HCC); Multiple myeloma in remission (HCC) 08/30/2024 Orders Only [facility] Scanning, Provider 08/27/2024 Documentation Nephrology Ani Anne LCSW 08/27/2024 Orders Only [facility] [address] [place] [phone] Hermelindo Hill MD Multiple myeloma not having achieved remission (HCC) (Primary Dx); JOHN (acute kidney injury) 08/25/2024 6:50 AM CDT Ancillary Procedure [facility] IP [address] [address] 08/23/2024 11:13 PM CDT - 08/26/2024 4:50 PM CDT Hospital Encounter [address] [phone] Hermelindo Hill MD [place], Thabet J.M., MD JOHN (acute kidney injury) (Primary Dx) Discharge Disposition: Discharge to home or self care 08/23/2024 7:10 PM CDT - 08/23/2024 11:59 PM CDT Hospital Encounter [facility] 1 [place] [address] Discharge Disposition: Discharge to home or self care 08/23/2024 5:24 PM CDT - 08/23/2024 11:59 PM CDT Hospital Encounter [facility] [address] [place] [address] Hermelindo Hill MD Elevated serum creatinine (Primary Dx); Multiple myeloma, remission status unspecified (HCC) Discharge Disposition: Discharge to home or self care 08/23/2024 Orders Only [address] [phone] Hermelindo Hill MD 08/23/2024 Orders Only [facility] [address] [place] [phone] Hermelindo Hill MD Multiple myeloma, remission status unspecified (HCC) (Primary Dx) 08/20/2024 Orders Only [facility] Scanning, Provider 08/10/2024 Orders Only [facility] Scanning, Provider 08/06/2024 1:45 PM TELEGRAPH REPEATER TECHNICIAN Clinical Support [facility] - Lab Collection [address] [facility] Floor 6 [place] [address] 08/06/2024 1:00 PM TELEGRAPH REPEATER TECHNICIAN - 08/06/2024 11:59 PM TELEGRAPH REPEATER TECHNICIAN Hospital Encounter [facility] 1 [place] [address] Multiple myeloma, remission status unspecified (HCC) Discharge Disposition: Discharge to home or self care 08/06/2024 8:00 AM TELEGRAPH REPEATER TECHNICIAN Infusion [facility] - Infusion [address] Floor [address] [place] [address] Multiple myeloma not having achieved remission (HCC) (Primary Dx); Hypogammaglobuline hakeem 08/06/2024 7:15 AM TELEGRAPH REPEATER TECHNICIAN Clinical Support [facility] - Lab Collection [address] [facility] Floor [address] [place] [address] Multiple myeloma in relapse (HCC) (Primary Dx); Multiple myeloma, remission status unspecified (HCC); JOHN (acute kidney injury) 08/06/2024 Telephone [facility] [address] [phone] Lyndsey Fagan NP 08/06/2024 Orders Only [facility] [address] [place] [phone] Lyndsey Fagan NP Multiple myeloma, remission status unspecified (HCC) (Primary Dx) 08/06/2024 Orders Only [facility] [address] [place] [phone] Lyndsey Fagan NP JOHN (acute kidney injury) (Primary Dx) 08/06/2024 Orders Only [facility] [address] [place] [phone] Hermelindo Hill MD Multiple myeloma, remission status unspecified (HCC) (Primary Dx) 08/03/2024 9:30 AM TELEGRAPH REPEATER TECHNICIAN Infusion [facility] - Infusion [address] [place] [address] Multiple myeloma in relapse (HCC) (Primary Dx); Multiple myeloma in remission (HCC) 08/03/2024 8:30 AM TELEGRAPH REPEATER TECHNICIAN Office Visit [facility] [address] [place] [phone] Hermelindo Hill MD Multiple myeloma, remission status unspecified (HCC) (Primary Dx); Multiple myeloma in remission (HCC); Multiple myeloma in relapse (HCC) 08/03/2024 7:30 AM TELEGRAPH REPEATER TECHNICIAN Clinical Support [facility] - Lab Collection [address] [place] [address] Multiple myeloma in remission (HCC); Multiple myeloma, remission status unspecified (HCC); Multiple myeloma in relapse (HCC) 08/03/2024 Orders Only [facility] [address] [place] [phone] Hermelindo Hill MD 08/03/2024 Orders Only [facility] [address] [place] [phone] Hermelindo Hill MD 08/03/2024 Orders Only [facility] [address] [place] [phone] Hermelindo Hill MD 08/02/2024 Telephone [facility] [address] [place] [phone] Lyndsey Fagan NP 07/30/2024 Telephone [facility] [address] [place] [phone] Hermelindo Hill MD 07/27/2024 Telephone [facility] [address] [place] [phone] Hermelindo Hill MD 07/26/2024 Orders Only [facility] [address] [place] [phone] Hermelindo Hill MD 07/26/2024 Orders Only [facility] [address] [place] [phone] Hermelindo Hill MD 07/26/2024 Telephone [facility] [address] [place] [phone] Margaret Kay, NAHUN Medical Question/Miscellan eous 07/13/2024 10:00 AM TELEGRAPH REPEATER TECHNICIAN Infusion [facility]fusion [address] [place] [address] Floor [address] [place] [address] Multiple myeloma in relapse (HCC) (Primary Dx); Multiple myeloma in remission (HCC) 07/13/2024 9:00 AM TELEGRAPH REPEATER TECHNICIAN Office Visit [facility] [address] [place] [phone] Hermelindo Hill MD Multiple myeloma, remission status unspecified (HCC) (Primary Dx); Multiple myeloma in remission (HCC); Hypogammaglobuline hakeem 07/13/2024 8:00 AM TELEGRAPH REPEATER TECHNICIAN Clinical Support [facility] - Lab Collection [address] [facility] Floor [address] [place] [address] Multiple myeloma in remission (HCC); Multiple myeloma in relapse (HCC); Multiple myeloma, remission status unspecified (HCC) 07/13/2024 Telephone [facility] [address] [place] [phone] Fadumo Tobar RN 06/22/2024 8:30 AM TELEGRAPH REPEATER TECHNICIAN Infusion [facility] - Infusion [address] [facility] Floor [address] [place] [address] Multiple myeloma, remission status unspecified (HCC) (Primary Dx); Multiple myeloma in remission (HCC); Multiple myeloma in relapse (HCC) 06/22/2024 8:00 AM TELEGRAPH REPEATER TECHNICIAN Office Visit [facility] [address] [place] [phone] Hermelindo Hill MD Multiple myeloma in relapse (HCC) (Primary Dx); Multiple myeloma, remission status unspecified (HCC); Hypogammaglobuline hakeem; Obesity, morbid (HCC) 06/22/2024 7:00 AM TELEGRAPH REPEATER TECHNICIAN Clinical Support [facility] - Lab Collection [address] [place] [address] Multiple myeloma, remission status unspecified (HCC); Multiple myeloma in relapse (HCC) 06/22/2024 Orders Only [facility] [address] [place] [phone] Hermelindo Hill MD 06/22/2024 Orders Only [facility] [address] [place] [phone] Hermelindo Hill MD Multiple myeloma in remission (HCC) (Primary Dx); Multiple myeloma in relapse (HCC) 06/14/2024 Telephone [facility] [address] [place] [phone] Margaret Kay RMA Reschedule from Last 3 [...] chemotherapy has chemo every 21 days at [place] last tx 09/24/22 Cough patient states D moises Servin aware of productive sputum green to white [...] on file Legal Sex 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 TELEGRAPH REPEATER TECHNICIAN Gender Identity Not on file Sexual Orientation [...] 1968 Well Visit 65+ 2017 Covid-19 Vaccine (2023-2 5 season) 2024 06/13/2021, 07/05/2020, 06/07/2020 Fall Risk Assessment 08/26/2025 08/26/2024 DTaP/Tdap/Td Vaccine (3 - Td or Tdap) 06/21/2033 06/21/2023, 12/09/2011 Zoster Vaccine Completed 08/15/2018, 05/10, 02/28/2018 Pneumococcal vaccine 65+ Completed 04/15/2021, 01/2015 Hepatitis C Screening Completed 10/16/2021 Influenza Vaccine Completed 03/07/2024, , 03/08/2023, Additional history exists Prostate Cancer Screening-PSA Discontinued , 09/23/2023, 09/02/2023, Additional history exists Medical Devices Implanted Type Area Project Management Director Device Identifier Shelf Expiration Date Model / [...] - LABS 08/20/2024 SCAN - LABS 08/10/2024 KIDNEY COMPLETE Schedule Routine, Read Routine (OP Routine) 08/06/2024 2:42 PM TELEGRAPH REPEATER TECHNICIAN Multiple myeloma, remission status unspecified (HCC) URINALYSIS, MICROSCOPIC ONLY Routine 08/06/2024 9:19 AM TELEGRAPH REPEATER TECHNICIAN JOHN (acute kidney injury) PROTEIN / CREATININE RATIO, URINE, RANDOM Routine 08/06/2024 9:19 AM TELEGRAPH REPEATER TECHNICIAN JOHN (acute kidney injury) URINALYSIS AND REFLEX TO MICROSCOPIC Routine 08/06/2024 9:19 AM TELEGRAPH REPEATER TECHNICIAN JOHN (acute kidney injury) EGFR Routine 08/06/2024 7:43 AM TELEGRAPH REPEATER TECHNICIAN Multiple myeloma, remission status unspecified (HCC) DIFFERENTIAL AUTO Routine 08/06/2024 7:4 3 AM TELEGRAPH REPEATER TECHNICIAN Multiple myeloma, remission status unspecified (HCC) LACTATE DEHYDROGENASE Routine 08/06/2024 7:43 AM TELEGRAPH REPEATER TECHNICIAN Multiple myeloma, remission status unspecified (HCC) CBC WITH AUTO DIFFERENTIAL Routine 08/06/2024 7:43 AM TELEGRAPH REPEATER TECHNICIAN Multiple myeloma, remission status unspecified (HCC) COMPREHENSIVE METABOLIC PANEL Routine 08/06/2024 7:43 AM TELEGRAPH REPEATER TECHNICIAN Multiple myeloma, remission status unspecified (HCC) LIPID PANEL Routine 08/06/2024 7:43 AM TELEGRAPH REPEATER TECHNICIAN Multiple myeloma, remission status unspecified (HCC) PSA DIAGNOSTIC Routine 08/06/2024 7:43 AM TELEGRAPH REPEATER TECHNICIAN Multiple myeloma, remission status unspecified (HCC) PROTIME-INR STAT 08/03/2024 9:21 AM TELEGRAPH REPEATER TECHNICIAN Multiple myeloma in relapse (HCC) APTT STAT 08/03/2024 9:21 AM TELEGRAPH REPEATER TECHNICIAN Multiple myeloma in relapse (HCC) MAGNESIUM STAT 08/03/2024 7:40 AM TELEGRAPH REPEATER TECHNICIAN Multiple myeloma in relapse (HCC) GAMMA GT STAT 08/03/2024 7:40 AM TELEGRAPH REPEATER TECHNICIAN Multiple myeloma in relapse (HCC) EGFR Routine 08/03/2024 7:40 AM TELEGRAPH REPEATER TECHNICIAN Multiple myeloma, remission status unspecified (HCC) DIFFERENTIAL AUTO Routine 08/03/2024 7:4 0 AM TELEGRAPH REPEATER TECHNICIAN Multiple myeloma, remission status unspecified (HCC) CBC WITH AUTO DIFFERENTIAL Routine 08/03/2024 7:40 AM TELEGRAPH REPEATER TECHNICIAN Multiple myeloma, remission status unspecified (HCC) COMPREHENSIVE METABOLIC PANEL Routine 08/03/2024 7:40 AM TELEGRAPH REPEATER TECHNICIAN Multiple myeloma, remission status unspecified (HCC) IGA Routine 08/03/2024 7:40 AM TELEGRAPH REPEATER TECHNICIAN Multiple myeloma, remission status unspecified (HCC) IGG Routine 08/03/2024 7:40 AM TELEGRAPH REPEATER TECHNICIAN Multiple myeloma, remission status unspecified (HCC) IGM Routine 08/03/2024 7:40 AM TELEGRAPH REPEATER TECHNICIAN Multiple myeloma, remission status unspecified (HCC) IMMUNOGLOBULIN FREE LIGHT CHAINS Routine 08/03/2024 7:40 AM TELEGRAPH REPEATER TECHNICIAN Multiple myeloma, remission status unspecified (HCC) LACTATE DEHYDROGENASE Routine 08/03/2024 7:40 AM TELEGRAPH REPEATER TECHNICIAN Multiple myeloma, remission status unspecified (HCC) PROTEIN ELECTROPHORESIS, WITH REFLEX, SERUM Routine 08/03/2024 7:40 AM TELEGRAPH REPEATER TECHNICIAN Multiple myeloma, remission status unspecified (HCC) IMMUNOTYPING Routine 08/03/2024 7:40 AM TELEGRAPH REPEATER TECHNICIAN Multiple myeloma, remission status unspecified (HCC) HEMOGLOBIN A1C Routine 08/03/2024 7:40 AM TELEGRAPH REPEATER TECHNICIAN Multiple myeloma, remission status unspecified (HCC) URINALYSIS, MICROSCOPIC ONLY Routine 08/03/2024 7:30 AM TELEGRAPH REPEATER TECHNICIAN Multiple myeloma, remission status unspecified (HCC) URINE CULTURE Routine 08/03/2024 7:30 AM TELEGRAPH REPEATER TECHNICIAN URINALYSIS AND REFLEX TO MICROSCOPIC AND CULTURE Routine 08/03/2024 7:30 AM TELEGRAPH REPEATER TECHNICIAN Multiple myeloma, remission status unspecified (HCC) EGFR STAT 07/13/2024 7:40 AM TELEGRAPH REPEATER TECHNICIAN Multiple myeloma in relapse (HCC) DIFFERENTIAL AUTO STAT 07/13/2024 7:4 0 AM TELEGRAPH REPEATER TECHNICIAN Multiple myeloma in relapse (HCC) IGA Routine 07/13/2024 7:40 AM TELEGRAPH REPEATER TECHNICIAN Multiple myeloma, remission status unspecified (HCC) IGG Routine 07/13/2024 7:40 AM TELEGRAPH REPEATER TECHNICIAN Multiple myeloma, remission status unspecified (HCC) IGM Routine 07/13/2024 7:40 AM TELEGRAPH REPEATER TECHNICIAN Multiple myeloma, remission status unspecified (HCC) IMMUNOGLOBULIN FREE LIGHT CHAINS Routine 07/13/2024 7:40 AM TELEGRAPH REPEATER TECHNICIAN Multiple myeloma, remission status unspecified (HCC) PROTEIN ELECTROPHORESIS, WITH REFLEX, SERUM Routine 07/13/2024 7:40 AM TELEGRAPH REPEATER TECHNICIAN Multiple myeloma, remission status unspecified (HCC) IMMUNOTYPING Routine 07/13/2024 7:40 AM TELEGRAPH REPEATER TECHNICIAN Multiple myeloma, remission status unspecified (HCC) LACTATE DEHYDROGENASE Routine 07/13/2024 7:40 AM TELEGRAPH REPEATER TECHNICIAN Multiple myeloma in relapse (HCC) GAMMA GT STAT 07/13/2024 7:40 AM TELEGRAPH REPEATER TECHNICIAN Multiple myeloma in relapse (HCC) MAGNESIUM STAT 07/13/2024 7:40 AM TELEGRAPH REPEATER TECHNICIAN Multiple myeloma in relapse (HCC) COMPREHENSIVE METABOLIC PANEL STAT 07/13/2024 7:40 AM TELEGRAPH REPEATER TECHNICIAN Multiple myeloma in relapse (HCC) CBC WITH AUTO DIFFERENTIAL STAT 07/13/2024 7:40 AM TELEGRAPH REPEATER TECHNICIAN Multiple myeloma in relapse (HCC) APTT STAT 07/13/2024 7:24 AM TELEGRAPH REPEATER TECHNICIAN Multiple myeloma in relapse (HCC) PROTIME-INR STAT 07/13/2024 7:24 AM TELEGRAPH REPEATER TECHNICIAN Multiple myeloma in relapse (HCC) IMMUNOTYPING Routine 06/22/2024 7:20 AM TELEGRAPH REPEATER TECHNICIAN Multiple myeloma, remission status unspecified (HCC) EGFR Routine 06/22/2024 7:20 AM TELEGRAPH REPEATER TECHNICIAN Multiple myeloma, remission status unspecified (HCC) DIFFERENTIAL AUTO Routine 06/22/2024 7:2 0 AM TELEGRAPH REPEATER TECHNICIAN Multiple myeloma, remission status unspecified (HCC) CBC WITH AUTO DIFFERENTIAL Routine 06/22/2024 7:20 AM TELEGRAPH REPEATER TECHNICIAN Multiple myeloma, remission status unspecified (HCC) COMPREHENSIVE METABOLIC PANEL Routine 06/22/2024 7:20 AM TELEGRAPH REPEATER TECHNICIAN Multiple myeloma, remission status unspecified (HCC) IGA Routine 06/22/2024 7:20 AM TELEGRAPH REPEATER TECHNICIAN Multiple myeloma, remission status unspecified (HCC) IGG Routine 06/22/2024 7:20 AM TELEGRAPH REPEATER TECHNICIAN Multiple myeloma, remission status unspecified (HCC) IGM Routine 06/22/2024 7:20 AM TELEGRAPH REPEATER TECHNICIAN Multiple myeloma, remission status unspecified (HCC) IMMUNOGLOBULIN FREE LIGHT CHAINS Routine 06/22/2024 7:20 AM TELEGRAPH REPEATER TECHNICIAN Multiple myeloma, remission status unspecified (HCC) LACTATE DEHYDROGENASE Routine 06/22/2024 7:20 AM TELEGRAPH REPEATER TECHNICIAN Multiple myeloma, remission status unspecified (HCC) PROTEIN ELECTROPHORESIS, WITH REFLEX, SERUM Routine 06/22/2024 7:20 AM TELEGRAPH REPEATER TECHNICIAN Multiple myeloma, remission status unspecified (HCC) MAGNESIUM STAT 06/22/2024 7:20 AM TELEGRAPH REPEATER TECHNICIAN Multiple myeloma in relapse (HCC) GAMMA GT STAT 06/22/2024 7:20 AM TELEGRAPH REPEATER TECHNICIAN Multiple myeloma in relapse (HCC) PROTIME-INR STAT 06/22/2024 7:20 AM TELEGRAPH REPEATER TECHNICIAN Multiple myeloma in relapse (HCC) APTT STAT 06/22/2024 7:20 AM TELEGRAPH REPEATER TECHNICIAN Multiple myeloma in relapse (HCC) HEPATITIS C ANTIBODY STAT 10/16/2021 9:50 AM CDT Multiple myeloma in relapse (HCC) from Last 3 Months or Most Recently Relevant to Health Maintenance Results * Differential, auto (08/31/2024 8:12 AM CDT) Neutrophil abs 6.0 1.5 - 6.5 K/cumm Comment:Testing performed by : [facility], [address] [place] [phone] Lymphocyte abs 1.0 0.8 - 3.3 K/cumm MT SUAREZ Comment:Testing performed by : [facility], [facility] [place] [address] Monocyte abs 0.6 0.2 - 0.8 K/cumm [facility] Comment:Testing performed by : [facility], [address] [place] [phone] Eosinophil abs 0.3 0.0 - 0.5 K/cumm [facility] Comment:Testing performed by : [facility], [address] [place] [phone] Basophil abs 0.1 0.0 - 0.1 K/cumm [facility] Comment:Testing performed by : [facility], [address] [place] [phone] Neutrophil pct 75.2 % [facility] Comment: Interpretive Data Percent cell count reference ranges are not reported, since discordance with absolute values may lead to misinterpretation of CBC data. Current Interpretive Data was last revised on 2017. Testing performed by: [facility], [address] [place] [phone] Lymphocyte pct 12.4 % [facility] Comment: Interpretive Data Percent cell count reference ranges are not reported, since discordance with absolute values may lead to misinterpretation of CBC data. Current Interpretive Data was last revised on 2017. Testing performed by: [facility], [address] [place] [phone] Monocyte pct 7.9 % [facility] Comment: Interpretive Data Percent cell count reference ranges are not reported, since discordance with absolute values may lead to misinterpretation of CBC data. Current Interpretive Data was last revised on 2017. Testing performed by: [facility], [address] [place] [phone] Eosinophil pct 3.9 % [facility] Comment: Interpretive Data Percent cell count reference ranges are not reported, since discordance with absolute values may lead to misinterpretation of CBC data. Current Interpretive Data was last revised on 2017. Testing performed by: [facility], [address] [place] [phone] Basophil pct 0.6 % [facility] Comment: Interpretive Data Percent cell count reference ranges are not reported, since discordance with absolute values may lead to misinterpretation of CBC data. Current Interpretive Data was last revised on 2017. Testing performed by: [facility], [address] [place] [address] Blood 08/31/2024 8:12 AM CDT 08/31/2024 8:16 AM CDT Hermelindo Butler MD LAB BLOOD ORDER ELANA Final Result [facility] Department [place] [address] * (ABNORMAL) CBC with auto differential (08/31/2024 8:12 AM CDT) WBC 8.0 3.8 - 9.9 K/cumm Comment:Testing performed by : [facility], [address] [place] [address] Hgb 12.7(L) 13.0 - 17.5 g/dL MT SUAREZ Comment:Testing performed by : [facility], [address] [place] [address] Hct 37.8(L) 38.9 - 50.3 % MT SUAREZ Comment:Testing performed by : [facility], [address] [place] [address] Plt 176 150 - 400 K/cumm MT SUAREZ Comment:Testing performed by : [facility], [address] [place] [address] MPV 7.7 6.8 - 10.4 fL MT SUAREZ Comment:Testing performed by : [facility], [address] [place] [address] RBC 4.07(L) 4.30 - 5.80 M/cumm MT SUAREZ Comment:Testing performed by : [facility], [address] [place] [address] MCV 92.8 81.3 - 96.4 fL MT SUAREZ Comment:Testing performed by : [facility], [address] [place], [place] [id number] MCH 31.2 27.1 - 33.3 pg MT SUAREZ Comment:Testing performed by : [facility], [address] [place], [place] [id number] MCHC 33.6 32.3 - 35.7 g/dL MT SUAREZ Comment:Testing performed by : [facility], [address] [place] [phone] RDW CV 16.1(H) 11.1 - 14.9 % MT [facility] Comment:Testing performed by : [facility], [address] [place] [phone] NRBC abs 0.00 0.00 - 0.01 K/cumm MT [facility] Comment:Testing performed by : [facility], [address] [place], [place] [id number] Blood 08/31/2024 8:12 AM CDT 08/31/2024 8:16 AM CDT Hermelindo Butler MD LAB BLOOD ORDER ELANA Final Result Performing Organization Address City/[facility] de Phone Number MT [facility] Department [place] [address] * Type and screen (08/31/2024 8:12 AM [...] TEST ORDERABLES Final Result Performing Organization Address City/State/[facility] Co de Phone Number [facility] Department [place] [address] * Immunotyping, serum with interpretation (08/31/2024 8:12 AM CDT) Immunosubtraction Please see comment Comment: NO PARAPROTEIN DETECTED Reviewed and signed by Ivan Sims MD, PhD 09/01/2024 Blood 08/31/2024 8:12 AM CDT 08/31/2024 9:34 AM CDT Hermelindo Butler MD LAB BLOOD ORDER ELANA Final Result Performing Organization Address [facility] Co de Phone Number MT [facility] Department [place] [address] * (ABNORMAL) eGFR (08/31/2024 8:12 AM CDT) eGFR 45(L) >=60 mL/min/1. 73 m2 Comment: [...] ELANA Final Result MT DUARTE [facility] [place] [address] * (ABNORMAL) Immunoglobulin free light chains (08/31/2024 8:12 AM CDT) [facility]/Lambda ratio [facility] See Comment 0.26 - 1.65 Comment: Unable to calculate exact result. Interpretive Data The Binding Site FreeLite assay procedure was used. Results from different manufacturers or methods may not be comparable. Serial testing should be performed using the same methods and instrumentation. Current Interpretive Data was last revised on 2023. [place] free light chain [facility] <0.06(L) 0.33 - 1.94 mg/dL MT [facility] Comment: Interpretive Data The Binding Site FreeLite assay procedure was used. Results from different manufacturers or methods may not be comparable. Serial testing should be performed using the same methods and instrumentation. Current Interpretive Data was last revised on 2023. Lambda free light chain [facility] <0.14(L) 0.57 - 2.63 mg/dL [facility] Comment: Interpretive Data The Binding Site FreeLite assay procedure was used. Results from different manufacturers or methods may not be comparable. Serial testing should be performed using the same methods and instrumentation. Current Interpretive Data was last revised on 2023. Blood 08/31/2024 8:12 AM CDT 08/31/2024 9:34 AM CDT Hermelindo Butler MD LAB BLOOD ORDER ELANA Final Result MT [facility]ARTE [facility] Department [place] [address] * (ABNORMAL) aPTT (08/31/2024 8:12 AM CDT) [...] ORDER ELANA Final Result Performing Organization Address [facility] Co de Phone Number [facility] Department [place] [address] * Protime-INR (08/31/2024 8:12 AM CDT) Pathologist [facility] PT 11.4 9.7 - 13.0 sec INR 1.05 0.90 - 1.20 [facility] Comment: Interpretive data Oral anticoagulant therapeutic ranges: Venous thromboembolism prophylaxis or treatment: 2.0-3.0 CARDIOLOGY Standard range: 2.0-3.0 High-intensity range: 2.5-3.5 Refer to indication-specific guidelines for appropriate target ranges for prosthetic heart valve replacement. Current interpretive data was last revised on 2019. Blood 08/31/2024 8:12 AM CDT 08/31/2024 8:41 AM CDT Hermelindo uBtler MD LAB BLOOD ORDER ELANA Final Result Performing Organization Address [facility] Co de Phone Number [facility] Department [place] [address] * (ABNORMAL) Protein electrophoresis with reflex, serum with interpretation (08/31/2024 8:12 AM CDT) Pathologist [facility] Protein, sr 6.0(L) 6.2 - 8.2 g/dL Albumin 3.9 3.2 - 5.0 g/dL [facility] Alpha-1 globulin 0.4 0.2 - 0.4 g/dL [facility] Alpha-2 globulin 0.7 0.5 - 1.0 g/dL [facility] Beta-1 globulin 0.5 0.3 - 0.6 g/dL [facility] Beta-2 globulin 0.3 0.2 - 0.6 g/dL [facility] Gamma globulin 0.2(L) 0.5 - 1.7 g/dL [facility] SPEP interp Please see comment [facility] Comment: No apparent monoclonal peak Decreased gamma globulins Electrophoretic pattern appears similar to previous sample 08/24/2024 See immunotyping for further information Reviewed and signed by Ivan Sims MD, PhD 09/01/2024 Blood 08/31/2024 8:12 AM CDT 08/31/2024 9:34 AM CDT Hermelindo Butler MD LAB BLOOD ORDER ELANA Final Result Performing Organization Address City/[facility]/ZIP Co de Phone Number [facility] Department [place] [address] * Magnesium (08/31/2024 8:12 AM CDT) Magnesium 1.8 1.4 - 2.5 mg/dL Blood 08/31/2024 8:12 AM CDT 08/31/2024 8:20 AM CDT Hermelindo Butler MD LAB BLOOD ORDER ELANA Final Result [facility] Department [place] [address] * Lactate dehydrogenase (LD) (08/31/2024 8:12 AM CDT) Lactate dehydrogenase (LDH) 155 100 - 250 Units/L Blood 08/31/2024 8:12 AM CDT 08/31/2024 8:20 AM CDT Hermelindo Butler MD LAB BLOOD ORDER ELANA Final Result [facility] [place] [address] * Gamma GT (08/31/2024 8:12 AM CDT) Pathologist [facility] GGT 27 10 - 50 Units/L Blood 08/31/2024 8:12 AM CDT 08/31/2024 8:20 AM CDT Hermelindo Butler MD LAB BLOOD ORDER ELANA Final Result Performing Organization Address [facility] [place] [address] * (ABNORMAL) IgA (08/31/2024 8:12 AM CDT) [facility] Immunoglobulin A <50(L) 70 - 400 mg/dL Blood 08/31/2024 8:12 AM CDT 08/31/2024 8:38 AM CDT Hermelindo Butler MD LAB BLOOD ORDER ELANA Final Result Performing Organization Address [facility] Co de Phone Number [facility] [place] [address] * (ABNORMAL) IgM (08/31/2024 8:12 AM CDT) [facility] Immunoglobulin M <25(L) 40 - 230 mg/dL Blood 08/31/2024 8:12 AM CDT 08/31/2024 8:38 AM CDT Hermelindo Butler MD LAB BLOOD ORDER ELANA Final Result Performing Organization Address City/[facility]/ZIP Co de Phone Number [facility] [place] [address] * (ABNORMAL) IgG (08/31/2024 8:12 AM CDT) Immunoglobulin G <300(L) 700 - 1,600 mg/dL Blood 08/31/2024 8:12 AM CDT 08/31/2024 8:38 AM CDT Hermelindo Butler MD LAB BLOOD ORDER ELANA Final Result [facility] Department [place] [address] * (ABNORMAL) Comprehensive metabolic panel (08/31/2024 8:12 AM CDT) Pathologist [facility] Sodium 141 135 - 145 mmol/L Potassium, pl 4.0 3.3 - 4.9 mmol/L [facility] Chloride 103 97 - 110 mmol/L [facility] CO2 29 22 - 32 mmol/L [facility] Anion gap 9 2 - 15 mmol/L [facility] BUN 31(H) 6 - 25 mg/dL [facility] Creatinine 1.61(H) 0.80 - 1.30 mg/dL [facility] Glucose 114 70 - 199 mg/dL [facility] Comment: Interpretive Data Fasting glucose [...] 2022. Calcium 9.4 8.5 - 10.3 mg/dL [facility] Bilirubin, total 0.4 0.1 - 1.2 mg/dL [facility] Protein, pl 6.5 6.5 - 8.5 g/dL [facility] Albumin 4.1 3.5 - 5.0 g/dL [facility] Alk phos 65 40 - 130 Units/L [facility] ALT 16 7 - 55 Units/L [facility] AST 15 10 - 50 Units/L [facility] Blood 08/31/2024 8:12 AM CDT 08/31/2024 8:20 AM CDT us Hermelindo Butler MD LAB BLOOD ORDER ELANA Final Result [facility] [place] [address] * SCAN - LABS (08/30/2024) us Provider [...] CDT 08/26/2024 12:35 AM CDT us Karlos aHrgrove MD LAB BLOOD ORDERABLES Final Result MT SUAREZ [facility] [place] [address] * (ABNORMAL) Differential, auto (08/26/2024 12:25 AM CDT) Neutrophil abs 5.3 1.5 - 6.5 K/cumm Imm gran abs 0.0 0.0 - 0.1 K/cumm [facility]ER [facility] Lymphocyte abs 0.7(L) 0.8 - 3.3 K/cumm [facility] Monocyte abs 0.6 0.2 - 0.8 K/cumm [facility] Eosinophil abs 0.3 0.0 - 0.5 K/cumm CERNER [facility] Basophil abs 0.0 0.0 - 0.1 K/cumm [facility] Neutrophil pct 75.7 % [facility] Comment: Interpretive Data Percent cell count reference ranges are not reported, since discordance with absolute values may lead to misinterpretation of CBC data. Current Interpretive Data was last revised on 2017. Imm gran pct 0.4 % [facility] Comment: Interpretive Data Percent cell count reference ranges are not reported, since discordance with absolute values may lead to misinterpretation of CBC data. Current Interpretive Data was last revised on 2017. Lymphocyte pct 10.4 % [facility] Comment: Interpretive Data Percent cell count reference ranges are not reported, since discordance with absolute values may lead to misinterpretation of CBC data. Current Interpretive Data was last revised on 2017. Monocyte pct 9.0 % [facility] Comment: Interpretive Data Percent cell count reference ranges are not reported, since discordance with absolute values may lead to misinterpretation of CBC data. Current Interpretive Data was last revised on 2017. Eosinophil pct 4.4 % [facility] Comment: Interpretive Data Percent cell count reference ranges are not reported, since discordance with absolute values may lead to misinterpretation of CBC data. Current Interpretive Data was last revised on 2017. Basophil pct 0.1 % [facility] Comment: Interpretive Data Percent cell count reference ranges are not reported, since discordance with absolute values may lead to misinterpretation of CBC data. Current Interpretive Data was last revised on 2017. Blood 08/26/2024 12:2 5 AM CDT 08/26/2024 12:35 AM CDT Karlos Hargrove MD LAB BLOOD ORDERABLES Final Result Performing Organization Address [facility] Co de Phone Number [facility] [place] [address] * (ABNORMAL) CBC with auto differential (08/26/2024 12:25 AM CDT) WBC 7.0 3.8 - 9.9 K/cumm Hgb 11.8(L) 13.0 - 17.5 g/dL [facility] Hct 35.7(L) 38.9 - 50.3 % [facility] Plt 131(L) 150 - 400 K/cumm [facility] MPV 9.2 9.1 - 12.3 fL [facility] RBC 3.83(L) 4.30 - 5.80 M/cumm [facility] MCV 93.2 81.3 - 96.4 fL [facility] MCH 30.8 27.1 - 33.3 pg [facility] MCHC 33.1 32.3 - 35.7 g/dL [facility] RDW CV 15.4(H) 11.1 - 14.9 % [facility] RDW SD 51.7(H) 35.7 - 48.1 fL [facility] NRBC abs 0.00 0.00 - 0.01 K/cumm [facility] Blood 08/26/2024 12:2 5 AM CDT 08/26/2024 12:35 AM CDT Karlos Hargrove MD LAB BLOOD ORDERABLES Final Result Performing Organization Address City/[facility]/ZIP Co de Phone Number [facility] [place] [address] * Type and screen (08/26/2024 12:25 AM CDT) Yehuda, indirect Negative Comment:Patient has previous antibody history ABO Rh A Positive [facility] Blood 08/26/2024 12:2 5 AM CDT 08/26/2024 12:38 AM CDT Narrative [facility] - 08/26/2024 2:23 AM CDT Has the patient had Daratumumab or Isatuximab in the past 6 months?->Unknown Karlos Hargrove MD LAB BLOOD BANK TEST ORDERA BLES Final Result Performing Organization Address City/[facility] Co de Phone Number [facility] [place] [address] * (ABNORMAL) Uric acid (08/26/2024 12:25 AM CDT) Uric acid 8.6(H) 3.0 - 8.0 mg/dL Blood 08/26/2024 12:2 5 AM CDT 08/26/2024 12:35 AM CDT Narrative [facility] - 08/26/2024 1:10 AM CDT Friday and only. Morning draw. . us Karlos Hargrove MD LAB BLOOD ORDERABLES Final Result Performing Organization Address City/[facility] Co de Phone Number [facility] Department [place] [address] * Phosphorus (08/26/2024 12:25 AM CDT) Phosphorus, pl 3.6 2.3 - 4.5 mg/dL Blood 08/26/2024 12:2 5 AM CDT 08/26/2024 12:35 AM CDT us Karlos Hargrove MD LAB BLOOD ORDERABLES Final Result [facility] [place] [address] * Magnesium (08/26/2024 12:25 AM CDT) [facility] Magnesium 1.7 1.4 - 2.5 mg/dL Blood 08/26/2024 12:2 5 AM CDT 08/26/2024 12:35 AM CDT Karlos Hargrove MD LAB BLOOD ORDERABLES Final Result Performing Organization Address City/State/[facility] [place] [address] * Lactate dehydrogenase (LD) (08/26/2024 12:25 AM CDT) [facility] Lactate dehydrogenase (LDH) 167 100 - 250 Units/L Blood 08/26/2024 12:2 5 AM CDT 08/26/2024 12:35 AM CDT Narrative [facility] - 08/26/2024 1:10 AM CDT Friday and only. Morning draw. Karlos Hargrove MD LAB BLOOD ORDERABLES Final Result Performing Organization Address City/State/[facility] Co de Phone Number [facility] Department [place] [address] * (ABNORMAL) Comprehensive metabolic panel (08/26/2024 12:25 AM CDT) [facility] Sodium 148(H) 135 - 145 mmol/L Potassium, pl 3.4 3.3 - 4.9 mmol/L [facility] Chloride 108 97 - 110 mmol/L [facility] CO2 28 22 - 32 mmol/L [facility] Anion gap 12 2 - 15 mmol/L [facility] BUN 35(H) 6 - 25 mg/dL [facility] Creatinine 2.27(H) 0.80 - 1.30 mg/dL [facility] Glucose 107 70 - 199 mg/dL [facility] Comment: Interpretive Data Fasting glucose [...] 2022. Calcium 8.9 8.5 - 10.3 mg/dL [facility] Bilirubin, total 0.6 0.1 - 1.2 mg/dL [facility] Protein, pl 5.9(L) 6.5 - 8.5 g/dL [facility] Albumin 3.7 3.5 - 5.0 g/dL [facility] Alk phos 60 40 - 130 Units/L [facility] ALT 15 7 - 55 Units/L [facility] AST 13 10 - 50 Units/L [facility] Blood 08/26/2024 12:2 5 AM CDT 08/26/2024 12:35 AM CDT Karlos Hargrove MD LAB BLOOD ORDERABLES Final Result [facility] Department of Laboratories [place] [id number] * US Vein Duplex Lower Extremity Bilateral Complete (08/25/2024 9:30 AM CDT) Anatomical Region Laterality Modality Vascular Bilateral Ultrasound 08/25/2024 8:37 AM CDT Narrative 08/27/2024 11:10 AM CDT [facility] - Department of Vascular Surgery, Vascular Laboratory [address] [place] [address] Lower Extremity Venous Ultrasound Report Patient Name: MAYRASHASHANKBUFFY B : 1950 (73y 8m) Study Date: 08/25/2024 8:37:41 AM Gender: M Tech: Location: [id number] Ref Provider: OLGA KEITH Quality: Adequate Order Provider: OLGA KEITH PROCEDURES: Vascular Report: Venous Duplex imaging was performed bilaterally in the lower extremities. The common femoral, femoral, popliteal, posterior tibial, peroneal veins were evaluated for patency, spontaneity and phasicity with Doppler, compression and augmentation maneuvers. Great saphenous vein proximal at the junction was evaluated with compression maneuvers. INDICATIONS: Localized edema. FINDINGS: Performing Chair Car Attendant: Farzana Owens RVT. Bilateral: Venous Doppler signals [...] above. Electronically Signed By: Cesar Cabello MD [facility] [phone] 08/27/2024 10:10:26 AM CDT Procedure Note Cesar Cabello MD - 08/27/2024 [facility] - Department of Vascular Surgery,Vascular Laboratory [address] [place] [address] Lower Extremity Venous Ultrasound Report Patient Name: BUFFY VALLECarl : 1950 (73y 8m) Study Date: 08/25/2024 8:37:41 AM Gender: M Tech: Location: [id number] Ref Provider: OLGA KEITH Quality: Adequate Order Provider: OLGA KEITH PROCEDURES: Vascular Report: Venous Duplex imaging was performed bilaterally in the lower extremities.The common femoral, femoral, popliteal, posterior tibial, peroneal veins wereevaluated for patency, spontaneity and phasicity with Doppler, compression and augmentationmaneuvers. Great saphenous vein proximal at the junction was evaluated with compressionmaneuvers. INDICATIONS: Localized edema. FINDINGS: Performing Chair Car Attendant: Farzana Owens RVT. Bilateral: Venous Doppler signals [...] above. Electronically Signed By: Cesar Cabello MD [facility] [phone] 08/27/2024 10:10:26 AM CDT Olga Keith MD [facility] [place] PROCEDURES Final Result * (ABNORMAL) eGFR [...] Hargrove MD LAB BLOOD ORDERABLES Final Result [facility] [place] [address] * (ABNORMAL) Differential, auto (08/25/2024 12:34 AM CDT) Neutrophil abs 5.2 1.5 - 6.5 K/cumm Imm gran abs 0.1 0.0 - 0.1 K/cumm C[facility] Lymphocyte abs 0.5(L) 0.8 - 3.3 K/cumm [facility] Monocyte abs 0.5 0.2 - 0.8 K/cumm C[facility]ER [facility] Eosinophil abs 0.4 0.0 - 0.5 K/cumm [facility]ER [facility] Basophil abs 0.0 0.0 - 0.1 K/cumm [facility] Neutrophil pct 77.6 % [facility] Comment: Interpretive Data Percent cell count reference ranges are not reported, since discordance with absolute values may lead to misinterpretation of CBC data. Current Interpretive Data was last revised on 2017. Imm gran pct 0.7 % [facility] Comment: Interpretive Data Percent cell count reference ranges are not reported, since discordance with absolute values may lead to misinterpretation of CBC data. Current Interpretive Data was last revised on 2017. Lymphocyte pct 7.9 % [facility] Comment: Interpretive Data Percent cell count reference ranges are not reported, since discordance with absolute values may lead to misinterpretation of CBC data. Current Interpretive Data was last revised on 2017. Monocyte pct 7.5 % [facility] Comment: Interpretive Data Percent cell count reference ranges are not reported, since discordance with absolute values may lead to misinterpretation of CBC data. Current Interpretive Data was last revised on 2017. Eosinophil pct 6.0 % [facility] Comment: Interpretive Data Percent cell count reference ranges are not reported, since discordance with absolute values may lead to misinterpretation of CBC data. Current Interpretive Data was last revised on 2017. Basophil pct 0.3 % [facility] Comment: Interpretive Data Percent cell count reference ranges are not reported, since discordance with absolute values may lead to misinterpretation of CBC data. Current Interpretive Data was last revised on 2017. Blood 08/25/2024 12:3 4 AM CDT 08/25/2024 12:57 AM CDT Karlos Hargrove MD LAB BLOOD ORDERABLES Final Result [facility] [place] [address] * (ABNORMAL) CBC with auto differential (08/25/2024 12:34 AM CDT) WBC 6.7 3.8 - 9.9 K/cumm Hgb 11.2(L) 13.0 - 17.5 g/dL [facility] Hct 33.3(L) 38.9 - 50.3 % [facility] Plt 136(L) 150 - 400 K/cumm [facility] MPV 9.5 9.1 - 12.3 fL [facility] RBC 3.57(L) 4.30 - 5.80 M/cumm [facility] MCV 93.3 81.3 - 96.4 fL [facility] MCH 31.4 27.1 - 33.3 pg [facility] MCHC 33.6 32.3 - 35.7 g/dL [facility] RDW CV 15.3(H) 11.1 - 14.9 % [facility] RDW SD 51.0(H) 35.7 - 48.1 fL [facility] NRBC abs 0.00 0.00 - 0.01 K/cumm [facility] Blood 08/25/2024 12:3 4 AM CDT 08/25/2024 12:57 AM CDT us Karlos Hargrove MD LAB BLOOD ORDERABLES Final Result Performing Organization Address City/[facility]/ZIP Co de Phone Number [facility] [place] [address] * Phosphorus (08/25/2024 12:34 AM CDT) Pathologist [facility] Phosphorus, pl 3.7 2.3 - 4.5 mg/dL Blood 08/25/2024 12:3 4 AM CDT 08/25/2024 12:55 AM CDT Karlos Hargrove MD LAB BLOOD ORDERABLES Final Result Performing Organization Address [facility] Co de Phone Number [facility] [place] [address] * Magnesium (08/25/2024 12:34 AM CDT) [facility] Magnesium 1.9 1.4 - 2.5 mg/dL Blood 08/25/2024 12:3 4 AM CDT 08/25/2024 12:55 AM CDT Karlos Hargrove MD LAB BLOOD ORDERABLES Final Result Performing Organization Address [facility] Co de Phone Number [facility] [place] [address] * (ABNORMAL) Comprehensive metabolic panel (08/25/2024 12:34 AM CDT) Pathologist [facility] [facility] Sodium 147(H) 135 - 145 mmol/L Potassium, pl 3.2(L) 3.3 - 4.9 mmol/L [facility] Chloride 109 97 - 110 mmol/L [facility] CO2 26 22 - 32 mmol/L [facility] Anion gap 12 2 - 15 mmol/L [facility] BUN 47(H) 6 - 25 mg/dL [facility] Creatinine 2.74(H) 0.80 - 1.30 mg/dL [facility] Glucose 154 70 - 199 mg/dL [facility] Comment: Interpretive Data Fasting glucose [...] 2022. Calcium 8.4(L) 8.5 - 10.3 mg/dL [facility] Bilirubin, total 0.4 0.1 - 1.2 mg/dL [facility] Protein, pl 5.9(L) 6.5 - 8.5 g/dL [facility] Albumin 3.9 3.5 - 5.0 g/dL [facility] Alk phos 61 40 - 130 Units/L [facility] ALT 18 7 - 55 Units/L [facility] AST 17 10 - 50 Units/L [facility] Blood 08/25/2024 12:3 4 AM CDT 08/25/2024 12:55 AM CDT Karlos Hargrove MD LAB BLOOD ORDERABLES Final Result [facility] [place] [address] * Sodium, urine, random (08/24/2024 5:16 PM CDT) Sodium, ur 44 mmol/L Comment: Interpretive Data No reference range established. Current interpretive data was last revised 2018. Urine 08/24/2024 5:16 PM CDT 08/24/2024 5:31 PM CDT Olga Keith MD LAB URINE ORDERABLES Final Resul t [facility] [place] [address] * CT Abdomen Pelvis WO Contrast (08/24/2024 [...] by: Randall Braun M.D. Olga Keith MD IM CT PROCEDURES Final Result * (ABNORMAL) Differential, auto (08/24/2024 2:30 AM CDT) Neutrophil abs 4.9 1.5 - 6.5 K/cumm Imm gran abs 0.0 0.0 - 0.1 K/cumm [facility] Lymphocyte abs 0.7(L) 0.8 - 3.3 K/cumm [facility] Monocyte abs 0.6 0.2 - 0.8 K/cumm [facility] Eosinophil abs 0.5 0.0 - 0.5 K/cumm [facility] Basophil abs 0.0 0.0 - 0.1 K/cumm [facility] Neutrophil pct 73.7 % [facility] Comment: Interpretive Data Percent cell count reference ranges are not reported, since discordance with absolute values may lead to misinterpretation of CBC data. Current Interpretive Data was last revised on 2017. Imm gran pct 0.6 % [facility] Comment: Interpretive Data Percent cell count reference ranges are not reported, since discordance with absolute values may lead to misinterpretation of CBC data. Current Interpretive Data was last revised on 2017. Lymphocyte pct 10.0 % [facility] Comment: Interpretive Data Percent cell count reference ranges are not reported, since discordance with absolute values may lead to misinterpretation of CBC data. Current Interpretive Data was last revised on 2017. Monocyte pct 8.3 % [facility] Comment: Interpretive Data Percent cell count reference ranges are not reported, since discordance with absolute values may lead to misinterpretation of CBC data. Current Interpretive Data was last revised on 2017. Eosinophil pct 7.1 % [facility] Comment: Interpretive Data Percent cell count reference ranges are not reported, since discordance with absolute values may lead to misinterpretation of CBC data. Current Interpretive Data was last revised on 2017. Basophil pct 0.3 % [facility] Comment: Interpretive Data Percent cell count reference ranges are not reported, since discordance with absolute values may lead to misinterpretation of CBC data. Current Interpretive Data was last revised on 2017. Blood 08/24/2024 2:30 AM CDT 08/24/2024 1:28 AM CDT Karlos Hargrove MD LAB BLOOD ORDERABLES Final Result Performing Organization Address [facility] Co de Phone Number [facility] [place] [address] * (ABNORMAL) CBC with auto differential (08/24/2024 2:30 AM CDT) Pathologist [facility] WBC 6.6 3.8 - 9.9 K/cumm Hgb 10.9(L) 13.0 - 17.5 g/dL [facility] Hct 33.1(L) 38.9 - 50.3 % [facility] Plt 130(L) 150 - 400 K/cumm [facility] MPV 10.0 9.1 - 12.3 fL [facility] RBC 3.50(L) 4.30 - 5.80 M/cumm [facility] MCV 94.6 81.3 - 96.4 fL [facility] MCH 31.1 27.1 - 33.3 pg [facility] MCHC 32.9 32.3 - 35.7 g/dL [facility] RDW CV 15.3(H) 11.1 - 14.9 % [facility] RDW SD 51.8(H) 35.7 - 48.1 fL [facility] NRBC abs 0.00 0.00 - 0.01 K/cumm [facility] Blood 08/24/2024 2:30 AM CDT 08/24/2024 1:28 AM CDT Karlos Hargrove MD LAB BLOOD ORDERABLES Final Result Performing Organization Address City/[facility]/ZIP Co de Phone Number [facility] [place] [address] * (ABNORMAL) eGFR (08/24/2024 1:12 AM CDT) [...] BLOOD ORDERABLES Final Result Performing Organization Address City/State/[facility] Co de Phone Number [place] [facility] [place] [address] * aPTT (08/24/2024 1:12 AM CDT) aPTT [...] BLOOD ORDERABLES Final Result Performing Organization Address City/[facility] Co de Phone Number [facility] [place] [address] * Protime-INR (08/24/2024 1:12 AM CDT) PT 11.7 9.7 - 13.0 sec INR 1.08 0.90 - 1.20 [facility] Comment: Interpretive data Oral anticoagulant therapeutic ranges: Venous thromboembolism prophylaxis or treatment: 2.0-3.0 CARDIOLOGY Standard range: 2.0-3.0 High-intensity range: 2.5-3.5 Refer to indication-specific guidelines for appropriate target ranges for prosthetic heart valve replacement. Current interpretive data was last revised on 2019. Blood 08/24/2024 1:12 AM CDT 08/24/2024 1:53 AM CDT Karlos Hargrove MD LAB BLOOD ORDERABLES Final Result Performing Organization Address [facility] Co de Phone Number [facility] [place] [address] * Type and screen (08/24/2024 1:12 AM CDT) Yehuda, indirect Negative Comment:Patient has previous antibody history ABO Rh A Positive [facility] Blood 08/24/2024 1:12 AM CDT 08/24/2024 1:36 AM CDT Narrative [facility] - 08/24/2024 2:36 AM CDT Has the patient had Daratumumab or Isatuximab in the past 6 months?->Unknown Karlos Hargrove MD LAB BLOOD BANK TEST ORDERA BLES Final Result Performing Organization Address [facility] Co de Phone Number [facility] [place] [address] * (ABNORMAL) Uric acid (08/24/2024 1:12 AM CDT) [facility] Uric acid 9.5(H) 3.0 - 8.0 mg/dL Blood 08/24/2024 1:12 AM CDT 08/24/2024 1:35 AM CDT Narrative [facility] - 08/24/2024 2:47 AM CDT Friday and only. Morning draw. . us Karlos Hargrove MD LAB BLOOD ORDERABLES Final Result [facility] [place] [address] * Phosphorus (08/24/2024 1:12 AM CDT) [facility] Phosphorus, pl 4.5 2.3 - 4.5 mg/dL Blood 08/24/2024 1:12 AM CDT 08/24/2024 1:35 AM CDT us Karlos Hargrove MD LAB BLOOD ORDERABLES Final Result Performing Organization Address City/[facility]/ZIP Co de Phone Number [facility] Department [place] [address] * Magnesium (08/24/2024 1:12 AM CDT) [facility] Magnesium 2.0 1.4 - 2.5 mg/dL Blood 08/24/2024 1:12 AM CDT 08/24/2024 1:35 AM CDT us Karlos Hargrove MD LAB BLOOD ORDERABLES Final Result [facility] [place] [address] * Lactate dehydrogenase (LD) (08/24/2024 1:12 AM CDT) [facility] Lactate dehydrogenase (LDH) 226 100 - 250 Units/L Blood 08/24/2024 1:12 AM CDT 08/24/2024 1:35 AM CDT Narrative [facility] - 08/24/2024 2:47 AM CDT Friday and only. Morning draw. Karlos Hargrove MD LAB BLOOD ORDERABLES Final Result [facility] Department [place] [address] * (ABNORMAL) Comprehensive metabolic panel (08/24/2024 1:12 AM CDT) [facility] Sodium 148(H) 135 - 145 mmol/L Potassium, pl 3.6 3.3 - 4.9 mmol/L [facility] Chloride 111(H) 97 - 110 mmol/L [facility] CO2 25 22 - 32 mmol/L [facility] Anion gap 12 2 - 15 mmol/L [facility] BUN 56(H) 6 - 25 mg/dL [facility] Creatinine 3.16(H) 0.80 - 1.30 mg/dL [facility] Glucose 102 70 - 199 mg/dL [facility] Comment: Interpretive Data Fasting glucose [...] 2022. Calcium 8.5 8.5 - 10.3 mg/dL [facility] Bilirubin, total 0.4 0.1 - 1.2 mg/dL [facility] Protein, pl 5.7(L) 6.5 - 8.5 g/dL [facility] Albumin 3.6 3.5 - 5.0 g/dL [facility] Alk phos 62 40 - 130 Units/L [facility] ALT 16 7 - 55 Units/L [facility] AST 11 10 - 50 Units/L [facility] Blood 08/24/2024 1:12 AM CDT 08/24/2024 1:35 AM CDT Karlos Hargrove MD LAB BLOOD ORDERABLES Final Result [facility] Department [place] [address] * US Kidney Complete (08/23/2024 8:12 PM [...] ur Straw Yellow Clarity, ur Clear Clear [facility] Specific gravity, ur 1.011 1.003 - 1.030 [facility] pH, urine 5.5 [facility] Comment: Interpretive Data U rine pH is affected by diet, medications, systemic acid-base disturbances, and renal tubular function. pH may affect urinary stone formation. For example, urine pH below 6.0 may help reduce the tendency for calcium phosphate stones and pH greater than 6.0 may reduce the tendency for uric acid stone formation. Source: [facility] Current Interpretive Data was last revised on 2017 Protein, ur ql Negative Negative [facility] Glucose, ur ql Negative Negative [facility] Ketones, ur Negative Negative [facility] Bilirubin, ur Negative Negative [facility] Blood, ur 2+(A) Negative [facility] Urobilinogen, ur <2.0 <2.0 mg/dL [facility] Nitrite, ur Negative Negative [facility] Leukocyte esterase, ur Trace(A) Negative [facility] UA reflex comment Reflex to microscopic UA will be performed. [facility] Urine 08/23/2024 7:01 PM CDT 08/23/2024 7:15 PM CDT Kinga Jones NP LAB URINE ORDERABLES Angeles nicole Result [facility] [place] [address] * Protein / creatinine ratio, urine, random (08/23/2024 7:01 PM CDT) Pathologist [facility] Protein, ur, quant 6.4 mg/dL Comment: Interpretive Data No reference range established. Current interpretive data was last revised 2018. Creatinine Ur 74.0 mg/dL [facility] Comment: Interpretive Data No reference range established. Current interpretive data was last revised 2018. Protein/creatinin e ratio 86.5 0.0 - 180.0 mg/g CR [facility] Urine 08/23/2024 7:01 PM CDT 08/23/2024 7:28 PM CDT Kinga Jones [employer] LAB URINE ORDERABLES Angeles l Result Performing Organization Address City/[facility]/ZIP Co de Phone Number [facility] [place] [address] * (ABNORMAL) Urinalysis, microscopic only (08/23/2024 7:01 PM CDT) Pathologist [facility] WBC, ur 0-5 0 - 5 /HPF RBC, ur 6-10(A) 0 - 2 /HPF [facility] Urine 08/23/2024 7:01 PM CDT 08/23/2024 7:15 PM CDT Kinga Jones [employer] LAB URINE [place] [address] * Urine culture Urine, clean voided (08/23/2024 7:01 PM CDT) Pathologist [facility] Report Final Report: Less than 100,000 colonies/mL (clinically insignificant growth based on current clinical standards) Organism (CLINICALLY INSIGNIFICANT GROWTH [facility] Urine, clean voided 08/23/2024 7:01 PM CDT 08/23/2024 8:52 PM CDT Narrative [facility] - 08/25/2024 8:02 AM CDT Indications for Culture:->Other (specify) Other Indication:->elevated creatinine Specimen received in a sterile container. Testing performed by [facility] ([phone]) us Kinga Jones NP LAB MICROBIOLOGY - GENERA L ORDERABLES Final Result Performing Organization Address [facility]/ZIP Co de Phone Number [facility] Department [place] [address] * Immunotyping, serum with interpretation (08/23/2024 6:04 PM CDT) Immunosubtraction Please see comment Comment: NO PARAPROTEIN DETECTED Reviewed and signed by Fernando Nunez MD, PhD 08/24/2024 Blood 08/23/2024 6:04 PM CDT 08/23/2024 6:13 PM CDT us Hermelindo Butler MD LAB BLOOD ORDER ELANA Final Result Performing Organization Address [facility] Co de Phone Number [facility] Department [place] [address] * (ABNORMAL) eGFR (08/23/2024 6:04 PM CDT) [...] MD LAB BLOOD ORDER ELANA Final Result [facility] [place] [address] * (ABNORMAL) Differential, auto (08/23/2024 6:04 PM CDT) Neutrophil abs 6.5 1.5 - 6.5 K/cumm Imm gran abs 0.0 0.0 - 0.1 K/cumm [facility] Lymphocyte abs 0.7(L) 0.8 - 3.3 K/cumm [facility] Monocyte abs 0.6 0.2 - 0.8 K/cumm [facility] Eosinophil abs 0.6(H) 0.0 - 0.5 K/cumm [facility] Basophil abs 0.0 0.0 - 0.1 K/cumm [facility] Neutrophil pct 77.0 % [facility] Comment: Interpretive Data Percent cell count reference ranges are not reported, since discordance with absolute values may lead to misinterpretation of CBC data. Current Interpretive Data was last revised on 2017. Imm gran pct 0.5 % [facility] Comment: Interpretive Data Percent cell count reference ranges are not reported, since discordance with absolute values may lead to misinterpretation of CBC data. Current Interpretive Data was last revised on 2017. Lymphocyte pct 8.3 % [facility] Comment: Interpretive Data Percent cell count reference ranges are not reported, since discordance with absolute values may lead to misinterpretation of CBC data. Current Interpretive Data was last revised on 2017. Monocyte pct 7.3 % [facility] Comment: Interpretive Data Percent cell count reference ranges are not reported, since discordance with absolute values may lead to misinterpretation of CBC data. Current Interpretive Data was last revised on 2017. Eosinophil pct 6.5 % [facility] Comment: Interpretive Data Percent cell count reference ranges are not reported, since discordance with absolute values may lead to misinterpretation of CBC data. Current Interpretive Data was last revised on 2017. Basophil pct 0.4 % [facility] Comment: Interpretive Data Percent cell count reference ranges are not reported, since discordance with absolute values may lead to misinterpretation of CBC data. Current Interpretive Data was last revised on 2017. Blood 08/23/2024 6:04 PM CDT 08/23/2024 6:12 PM CDT Hermelindo Butler MD LAB BLOOD ORDER ELANA Final Result [facility] [place] [address] * (ABNORMAL) Immunoglobulin free light chains (08/23/2024 6:04 PM CDT) [facility]/Lambda ratio [facility] <0.40 0.26 - 1.65 Comment: Interpretive Data The Binding Site FreeLite assay procedure was used. Results from different manufacturers or methods may not be comparable. Serial testing should be performed using the same methods and instrumentation. Current Interpretive Data was last revised on 2023. [facility] [facility] free light chain [facility] <0.06(L) 0.33 - 1.94 mg/dL [facility] Comment: Interpretive Data The Binding Site FreeLite assay procedure was used. Results from different manufacturers or methods may not be comparable. Serial testing should be performed using the same methods and instrumentation. Current Interpretive Data was last revised on 2023. Lambda free light chain [facility] 0.15(L) 0.57 - 2.63 mg/dL [facility] Comment: Interpretive Data The Binding Site FreeLite assay procedure was used. Results from different manufacturers or methods may not be comparable. Serial testing should be performed using the same methods and instrumentation. Current Interpretive Data was last revised on 2023. Blood 08/23/2024 6:04 PM CDT 08/23/2024 6:12 PM CDT Hermelindo Butler MD LAB BLOOD ORDER ELANA Final Result Performing Organization Address City/[facility]/ZIP Co de Phone Number [facility] Department [place] [address] * (ABNORMAL) CBC with auto differential (08/23/2024 6:04 PM CDT) Pathologist [facility] WBC 8.5 3.8 - 9.9 K/cumm Hgb 11.8(L) 13.0 - 17.5 g/dL [facility] Hct 35.6(L) 38.9 - 50.3 % [facility] Plt 131(L) 150 - 400 K/cumm [facility] MPV 9.8 9.1 - 12.3 fL [facility] RBC 3.78(L) 4.30 - 5.80 M/cumm [facility] MCV 94.2 81.3 - 96.4 fL [facility] MCH 31.2 27.1 - 33.3 pg [facility] MCHC 33.1 32.3 - 35.7 g/dL [facility] RDW CV 15.2(H) 11.1 - 14.9 % [facility] RDW SD 51.2(H) 35.7 - 48.1 fL [facility] NRBC abs 0.00 0.00 - 0.01 K/cumm [facility] Blood 08/23/2024 6:04 PM CDT 08/23/2024 6:12 PM CDT Hermelindo Butler MD LAB BLOOD ORDER ELANA Final Result Performing Organization Address City/[facility]/ZIP Co de Phone Number [facility] Department [place] [address] * (ABNORMAL) Uric acid (08/23/2024 6:04 PM CDT) [facility] Uric acid 9.5(H) 3.0 - 8.0 mg/dL Blood 08/23/2024 6:04 PM CDT 08/23/2024 6:13 PM CDT Hermelindo Butler MD LAB BLOOD ORDER ELANA Final Result [facility] [place] [address] * (ABNORMAL) Protein electrophoresis with reflex, serum with interpretation (08/23/2024 6:04 PM CDT) [facility] Protein, sr 5.9(L) 6.2 - 8.2 g/dL Albumin 3.9 3.2 - 5.0 g/dL [facility] Alpha-1 globulin 0.4 0.2 - 0.4 g/dL [facility] Alpha-2 globulin 0.7 0.5 - 1.0 g/dL [facility] Beta-1 globulin 0.4 0.3 - 0.6 g/dL [facility] Beta-2 globulin 0.3 0.2 - 0.6 g/dL [facility] Gamma globulin 0.2(L) 0.5 - 1.7 g/dL [facility] SPEP interp Please see comment [facility] Comment: No apparent monoclonal peak Decreased gamma globulins Electrophoretic pattern appears similar to previous sample 08/04/24 See immunotyping for further information Reviewed and signed by Fernando Nunez MD, PhD 08/24/2024 Blood 08/23/2024 6:04 PM CDT 08/23/2024 6:13 PM CDT Hermelindo Butler MD LAB BLOOD ORDER ELANA Final Result [facility] [place] [address] * (ABNORMAL) Phosphorus (08/23/2024 6:04 PM CDT) Pathologist [facility] Phosphorus, pl 4.7(H) 2.3 - 4.5 mg/dL Blood 08/23/2024 6:04 PM CDT 08/23/2024 6:13 PM CDT Hermelindo Butler MD LAB BLOOD ORDER ELANA Final Result Performing Organization Address [facility] [place] [address] * Magnesium (08/23/2024 6:04 PM CDT) [facility] Magnesium 1.9 1.4 - 2.5 mg/dL Blood 08/23/2024 6:04 PM CDT 08/23/2024 6:13 PM CDT Hermelindo Butler MD LAB BLOOD ORDER ELANA Final Result Performing Organization Address [facility] Co de Phone Number [facility] [place] [address] * Lactate dehydrogenase (LD) (08/23/2024 6:04 PM CDT) [facility] Lactate dehydrogenase (LDH) 198 100 - 250 Units/L Blood 08/23/2024 6:04 PM CDT 08/23/2024 6:13 PM CDT Hermelindo Butler MD LAB BLOOD ORDER ELANA Final Result Performing Organization Address City/[facility] Co de Phone Number [facility] [place] [address] * (ABNORMAL) IgA (08/23/2024 6:04 PM CDT) Pathologist [facility] Immunoglobulin A <50(L) 70 - 400 mg/dL Blood 08/23/2024 6:04 PM CDT 08/23/2024 6:13 PM CDT Hermelindo Butler MD LAB BLOOD ORDER ELANA Final Result Performing Organization Address City/[facility] Co de Phone Number [facility] Department [place] [address] * (ABNORMAL) IgM (08/23/2024 6:04 PM CDT) [facility] Immunoglobulin M <25(L) 40 - 230 mg/dL Blood 08/23/2024 6:04 PM CDT 08/23/2024 6:13 PM CDT Hermelindo Butler MD LAB BLOOD ORDER ELANA Final Result Performing Organization Address [facility] de Phone Number [facility] [place] [address] * (ABNORMAL) IgG (08/23/2024 6:04 PM CDT) [facility] Immunoglobulin G <300(L) 700 - 1,600 mg/dL Blood 08/23/2024 6:04 PM CDT 08/23/2024 6:13 PM CDT Hermelindo Butler MD LAB BLOOD ORDER ELANA Final Result Performing Organization Address [facility] de Phone Number [facility] [place] [address] * (ABNORMAL) Comprehensive metabolic panel (08/23/2024 6:04 PM CDT) [facility] Sodium 146(H) 135 - 145 mmol/L Potassium, pl 3.8 3.3 - 4.9 mmol/L [facility] Chloride 107 97 - 110 mmol/L [facility] CO2 26 22 - 32 mmol/L [facility] Anion gap 13 2 - 15 mmol/L [facility] BUN 58(H) 6 - 25 mg/dL [facility] Creatinine 3.37(H) 0.80 - 1.30 mg/dL [facility] Glucose 89 70 - 199 mg/dL [facility] Comment: Interpretive Data Fasting glucose [...] 2022. Calcium 8.9 8.5 - 10.3 mg/dL [facility] Bilirubin, total 0.4 0.1 - 1.2 mg/dL [facility] Protein, pl 6.2(L) 6.5 - 8.5 g/dL [facility] Albumin 4.0 3.5 - 5.0 g/dL [facility] Alk phos 68 40 - 130 Units/L [facility] [facility] ALT 16 7 - 55 Units/L [facility] AST 12 10 - 50 Units/L [facility] Blood 08/23/2024 6:04 PM CDT 08/23/2024 6:13 PM CDT us Hermelindo Butler MD LAB BLOOD ORDER ELANA Final Result [facility] Department [place] [address] * SCAN - LABS (08/20/2024) us Provider Scanning Final Result * SCAN - LABS (08/10/2024) us Provider Scanning Final Result * US Kidney Complete (08/06/2024 2:42 PM TELEGRAPH REPEATER TECHNICIAN) Anatomical Region Laterality Modality Kidney N/A Ultrasound 08/06/2024 3:27 PM TELEGRAPH REPEATER TECHNICIAN Impressions 08/06/2024 3:27 PM TELEGRAPH REPEATER TECHNICIAN 1. Mild nephromegaly with mild to moderate hydronephrosis bilaterally. 2. Incomplete bladder emptying with post void bladder residual of 397 mL. Electronically signed by: Dylan Tinajero M.D. Narrative 08/06/2024 3:27 PM TELEGRAPH REPEATER TECHNICIAN EXAMINATION: COMPLETE RENAL SONOGRAM HISTORY: Rising creatinine. [...] Urinalysis reflex to microscopic (08/06/2024 9:19 AM TELEGRAPH REPEATER TECHNICIAN) Color, ur Straw Yellow Clarity, ur Clear Clear [facility] Specific gravity, ur 1.013 1.003 - 1.030 [facility] pH, urine 5.5 [facility] Comment: Interpretive Data U rine pH is affected by diet, medications, systemic acid-base disturbances, and renal tubular function. pH may affect urinary stone formation. For example, urine pH below 6.0 may help reduce the tendency for calcium phosphate stones and pH greater than 6.0 may reduce the tendency for uric acid stone formation. Source: [facility] Current Interpretive Data was last revised on 2017 Protein, ur ql Negative Negative [facility] Glucose, ur ql Negative Negative [facility] Ketones, ur Negative Negative [facility] Bilirubin, ur Negative Negative [facility] Blood, ur 3+(A) Negative [facility] Urobilinogen, ur <2.0 <2.0 mg/dL [facility] Nitrite, ur Negative Negative [facility] Leukocyte esterase, ur Trace(A) [facility] UA reflex comment Reflex to microscopic UA will be performed. [facility] Urine 08/06/2024 9:19 AM TELEGRAPH REPEATER TECHNICIAN 08/06/2024 9:19 AM TELEGRAPH REPEATER TECHNICIAN Lyndsey Fagan TANK BUILDER HELPER LAB URINE ORDERABLES [place] l Result Performing Organization Address City/State/[facility] Co de Phone Number [facility] Department [place] [address] * Protein / creatinine ratio, urine, random (08/06/2024 9:19 AM TELEGRAPH REPEATER TECHNICIAN) Pathologist [facility] Protein, ur, quant 7.9 mg/dL Comment: Interpretive Data No reference range established. Current interpretive data was last revised 2018. Creatinine Ur 77.4 mg/dL [facility] Comment: Interpretive Data No reference range established. Current interpretive data was last revised 2018. Protein/creatinin e ratio 102.1 0.0 - 180.0 mg/g CR [facility] Urine 08/06/2024 9:19 AM TELEGRAPH REPEATER TECHNICIAN 08/06/2024 9:41 AM TELEGRAPH REPEATER TECHNICIAN Lyndsey Fagan TANK BUILDER HELPER LAB URINE ORDERABLES [place] l Result Performing Organization Address [facility] Co de Phone Number [facility] [place] [address] * (ABNORMAL) Urinalysis, microscopic only (08/06/2024 9:19 AM TELEGRAPH REPEATER TECHNICIAN) WBC, ur 6-10(A) 0 - 5 /HPF RBC, ur 21-50(A) 0 - 2 /HPF [facility] Bacteria, ur Trace(A) [facility] Mucous, ur Present(A) [facility] Urine 08/06/2024 9:19 AM TELEGRAPH REPEATER TECHNICIAN 08/06/2024 9:19 AM TELEGRAPH REPEATER TECHNICIAN Lyndsey Fagan TANK BUILDER HELPER LAB URINE ORDERABLES [place] l Result Performing Organization Address [facility] de Phone Number [facility] [place] [address] * (ABNORMAL) eGFR (08/06/2024 7:43 AM TELEGRAPH REPEATER TECHNICIAN) eGFR 31(L) >=60 mL/min/1. 73 m2 Comment: [...] Inclusion of Race in Diagnosing Kidney Disease, MIGUEL 2020). The CKD-EPI equation should not be used for patients with unstable renal function and has not been validated in children and those over 70. Current interpretive data was last reviewed 2021. Blood 08/06/2024 7:43 AM TELEGRAPH REPEATER TECHNICIAN 08/06/2024 7:52 AM TELEGRAPH REPEATER TECHNICIAN Hermelindo Butler MD LAB BLOOD ORDER ELANA Final Result [facility] Department [place] [address] * (ABNORMAL) Differential, auto (08/06/2024 7:43 AM TELEGRAPH REPEATER TECHNICIAN) Neutrophil abs 5.4 1.5 - 6.5 K/cumm Comment:Testing performed by : [facility], [address] [place] [phone] Lymphocyte abs 0.8 0.8 - 3.3 K/cumm CERNER BJ Comment:Testing performed by : [facility], [address] [place] [phone] Monocyte abs 0.5 0.2 - 0.8 K/cumm CERNER BJ Comment:Testing performed by : [facility], [address] [place] [phone] Eosinophil abs 0.7(H) 0.0 - 0.5 K/cumm CERNER BJ Comment:Testing performed by : [facility], [address] [place] [phone] Basophil abs 0.0 0.0 - 0.1 K/cumm CERNER BJ Comment:Testing performed by : [facility], [address] [place] [phone] Neutrophil pct 72.4 % CERNER BJ Comment: Interpretive Data Percent cell count reference ranges are not reported, since discordance with absolute values may lead to misinterpretation of CBC data. Current Interpretive Data was last revised on 2017. Testing performed by: [facility], [address] [place] [phone] Lymphocyte pct 10.4 % [facility]ER[facility] Comment: Interpretive Data Percent cell count reference ranges are not reported, since discordance with absolute values may lead to misinterpretation of CBC data. Current Interpretive Data was last revised on 2017. Testing performed by: [facility], [address] [place] [phone] Monocyte pct 7.3 % MT [facility] Comment: Interpretive Data Percent cell count reference ranges are not reported, since discordance with absolute values may lead to misinterpretation of CBC data. Current Interpretive Data was last revised on 2017. Testing performed by: [facility], [address] [place] [phone] Eosinophil pct 9.4 % [facility] Comment: Interpretive Data Percent cell count reference ranges are not reported, since discordance with absolute values may lead to misinterpretation of CBC data. Current Interpretive Data was last revised on 2017. Testing performed by: [facility], [address] [place] [phone] Basophil pct 0.5 % [facility] Comment: Interpretive Data Percent cell count reference ranges are not reported, since discordance with absolute values may lead to misinterpretation of CBC data. Current Interpretive Data was last revised on 2017. Testing performed by: [facility], [address] [place] [phone] Blood 08/06/2024 7:43 AM TELEGRAPH REPEATER TECHNICIAN 08/06/2024 7:51 AM TELEGRAPH REPEATER TECHNICIAN us Hermelindo Butler MD LAB BLOOD ORDER ELANA Final Result [facility] Department [place] [address] * (ABNORMAL) CBC with auto differential (08/06/2024 7:43 AM TELEGRAPH REPEATER TECHNICIAN) WBC 7.5 3.8 - 9.9 K/cumm Comment:Testing performed by : [facility], [address] [place] [address] Hgb 13.7 13.0 - 17.5 g/dL CERNER BJ Comment:Testing performed by : [facility], [address] [place] [address] Hct 40.6 38.9 - 50.3 % CERNER BJ Comment:Testing performed by : [facility], [address] [place], [place] [phone] Plt 169 150 - 400 K/cumm CERNER BJ Comment:Testing performed by : [facility], [address] [place] [address] MPV 7.5 6.8 - 10.4 fL CERNER BJ Comment:Testing performed by : [facility], [address] [place], [place] [phone] RBC 4.37 4.30 - 5.80 M/cumm CERNER BJ Comment:Testing performed by : [facility], [address] [place] [address] MCV 92.7 81.3 - 96.4 fL CERNER BJ Comment:Testing performed by : [facility], [address] [place] [address] MCH 31.3 27.1 - 33.3 pg CERNER BJ Comment:Testing performed by : [facility], [address] [place] [address] MCHC 33.8 32.3 - 35.7 g/dL CERNER BJ Comment:Testing performed by : [facility], [address] [place] [address] RDW CV 16.5(H) 11.1 - 14.9 % CERNER BJ Comment:Testing performed by : [facility], [address] [place] [address] NRBC abs 0.00 0.00 - 0.01 K/cumm CERNER BJ Comment:Testing performed by : [facility], [address] [place] [address] Blood 08/06/2024 7:43 AM TELEGRAPH REPEATER TECHNICIAN 08/06/2024 7:51 AM TELEGRAPH REPEATER TECHNICIAN Hermelindo Butler MD LAB BLOOD ORDER ELANA Final Result Performing Organization Address City/[facility] Co de Phone Number [facility] [place] [address] * (ABNORMAL) PSA diagnostic (08/06/2024 7:43 AM TELEGRAPH REPEATER TECHNICIAN) PSA-Total 6.28(H) <=6.20 ng/mL Comment: Interpretive Data [...] last revised 21. Blood 08/06/2024 7:43 AM TELEGRAPH REPEATER TECHNICIAN 08/06/2024 7:52 AM TELEGRAPH REPEATER TECHNICIAN Hermelindo Butler MD LAB BLOOD ORDER ELANA Final Result Performing Organization Address [facility] de Phone Number [facility] [place] [address] * Lactate dehydrogenase (LD) (08/06/2024 7:43 AM TELEGRAPH REPEATER TECHNICIAN) Lactate dehydrogenase (LDH) 161 100 - 250 Units/L Blood 08/06/2024 7:43 AM TELEGRAPH REPEATER TECHNICIAN 08/06/2024 7:52 AM TELEGRAPH REPEATER TECHNICIAN Hermelindo Butler MD LAB BLOOD ORDER ELANA Final Result Performing Organization Address City/[facility] Co de Phone Number [facility] [place] [address] * (ABNORMAL) Lipid panel (08/06/2024 7:43 AM TELEGRAPH REPEATER TECHNICIAN) Cholesterol 128 30 - 199 mg/dL Comment: [...] revised on 2018. Triglycerides 149 <=149 mg/dL [facility] Comment: Interpretive Data Ages < or = [...] on 2018. HDL 38(L) >=40 mg/dL MT [facility] Comment: Interpretive Data Ages < or = [...] 2018. LDL, calculated 64 <=129 mg/dL MT [facility] Comment: Interpretive Data Ages < or = [...] revised on 2024. Non-HDL Cholesterol 90 mg/dL [facility] Comment: Interpretive Data Ages < or = [...] last revised on 2018. Chol/HDL ratio 3 [facility] Blood 08/06/2024 7:43 AM TELEGRAPH REPEATER TECHNICIAN 08/06/2024 7:52 AM TELEGRAPH REPEATER TECHNICIAN us Hermelindo Butler MD LAB BLOOD ORDER ELANA Final Result [facility] Department [place] [address] * (ABNORMAL) Comprehensive metabolic panel (08/06/2024 7:43 AM TELEGRAPH REPEATER TECHNICIAN) Sodium 145 135 - 145 mmol/L Potassium, pl 4.2 3.3 - 4.9 mmol/L [facility] Chloride 108 97 - 110 mmol/L [facility] CO2 30 22 - 32 mmol/L [facility] Anion gap 7 2 - 15 mmol/L [facility] BUN 51(H) 6 - 25 mg/dL [facility] Creatinine 2.21(H) 0.80 - 1.30 mg/dL [facility] Glucose 113 70 - 199 mg/dL [facility] Comment: Interpretive Data Fasting glucose [...] 2022. Calcium 9.2 8.5 - 10.3 mg/dL [facility] Bilirubin, total 0.5 0.1 - 1.2 mg/dL [facility] Protein, pl 6.2(L) 6.5 - 8.5 g/dL [facility] Albumin 4.1 3.5 - 5.0 g/dL [facility] Alk phos 61 40 - 130 Units/L [facility] ALT 15 7 - 55 Units/L [facility] AST 16 10 - 50 Units/L [facility] Blood 08/06/2024 7:43 AM TELEGRAPH REPEATER TECHNICIAN 08/06/2024 7:52 AM TELEGRAPH REPEATER TECHNICIAN us Hermelindo Butler MD LAB BLOOD ORDER ELANA Final Result [facility] Department [place] [address] * aPTT (08/03/2024 9:21 AM TELEGRAPH REPEATER TECHNICIAN) aPTT 31 28 - 38 sec Comment: Interpretive Data Heparin therapeutic range: 66.0 - 100.0 seconds. Range based on correlation with therapeutic heparin activity range of 0.3 - 0.7 Units/mL. Current interpretive data was last revised on 2023. Blood 08/03/2024 9:21 AM TELEGRAPH REPEATER TECHNICIAN 08/03/2024 9:47 AM TELEGRAPH REPEATER TECHNICIAN Hermelindo Butler MD LAB BLOOD ORDER ELANA Final Result Performing Organization Address [facility] de Phone Number [facility] [place] [address] * Protime-INR (08/03/2024 9:21 AM TELEGRAPH REPEATER TECHNICIAN) PT 11.5 9.7 - 13.0 sec INR 1.06 0.90 - 1.20 [facility] Comment: Interpretive data Oral anticoagulant therapeutic ranges: Venous thromboembolism prophylaxis or treatment: 2.0-3.0 CARDIOLOGY Standard range: 2.0-3.0 High-intensity range: 2.5-3.5 Refer to indication-specific guidelines for appropriate target ranges for prosthetic heart valve replacement. Current interpretive data was last revised on 2019. Blood 08/03/2024 9:21 AM TELEGRAPH REPEATER TECHNICIAN 08/03/2024 9:47 AM TELEGRAPH REPEATER TECHNICIAN Hermelindo Butler MD LAB BLOOD ORDER ELANA Final Result Performing Organization Address [facility] de Phone Number [facility] [place] [address] * Immunotyping, serum with interpretation (08/03/2024 7:40 AM TELEGRAPH REPEATER TECHNICIAN) Immunosubtraction Please see comment Comment: NO PARAPROTEIN DETECTED Reviewed and signed by Hermelindo Mcnulty MD 08/04/2024 Blood 08/03/2024 7:40 AM TELEGRAPH REPEATER TECHNICIAN 08/03/2024 8:24 AM TELEGRAPH REPEATER TECHNICIAN Hermelindo Butler MD LAB BLOOD ORDER ELANA Final Result Performing Organization Address [facility] de Phone Number [facility] Department [place] [address] * (ABNORMAL) eGFR (08/03/2024 7:40 AM TELEGRAPH REPEATER TECHNICIAN) eGFR 37(L) >=60 mL/min/1. 73 m2 Comment: [...] last reviewed 2021. Blood 08/03/2024 7:40 AM TELEGRAPH REPEATER TECHNICIAN 08/03/2024 7:49 AM TELEGRAPH REPEATER TECHNICIAN Hermelindo Butler MD LAB BLOOD ORDER ELANA Final Result Performing Organization Address [facility] Co de Phone Number [facility] Department [place] [address] * (ABNORMAL) Differential, auto (08/03/2024 7:40 AM TELEGRAPH REPEATER TECHNICIAN) Neutrophil abs 5.6 1.5 - 6.5 K/cumm Comment:Testing performed by : [facility], [address] [place] [phone] Lymphocyte abs 0.9 0.8 - 3.3 K/cumm MT [facility] Comment:Testing performed by : [facility], [address] [place] [phone] Monocyte abs 0.6 0.2 - 0.8 K/cumm [facility] Comment:Testing performed by : [facility], [address] [place] [phone] Eosinophil abs 0.8(H) 0.0 - 0.5 K/cumm [facility] Comment:Testing performed by : [facility], [address] [place] [phone] Basophil abs 0.0 0.0 - 0.1 K/cumm [facility] Comment:Testing performed by : [facility], [address] [place] [phone] Neutrophil pct 70.4 % [facility] Comment: Interpretive Data Percent cell count reference ranges are not reported, since discordance with absolute values may lead to misinterpretation of CBC data. Current Interpretive Data was last revised on 2017. Testing performed by: [facility], [address] [place] [phone] Lymphocyte pct 11.2 % [facility] Comment: Interpretive Data Percent cell count reference ranges are not reported, since discordance with absolute values may lead to misinterpretation of CBC data. Current Interpretive Data was last revised on 2017. Testing performed by: [facility], [address] [place] [phone] Monocyte pct 7.7 % [facility] Comment: Interpretive Data Percent cell count reference ranges are not reported, since discordance with absolute values may lead to misinterpretation of CBC data. Current Interpretive Data was last revised on 2017. Testing performed by: [facility], [address] [place] [phone] Eosinophil pct 10.1 % [facility] Comment: Interpretive Data Percent cell count reference ranges are not reported, since discordance with absolute values may lead to misinterpretation of CBC data. Current Interpretive Data was last revised on 2017. Testing performed by: [facility], [address] [place] [phone] Basophil pct 0.6 % [facility] Comment: Interpretive Data Percent cell count reference ranges are not reported, since discordance with absolute values may lead to misinterpretation of CBC data. Current Interpretive Data was last revised on 2017. Testing performed by: [facility], [address] [place] [phone] Blood 08/03/2024 7:40 AM TELEGRAPH REPEATER TECHNICIAN 08/03/2024 7:47 AM TELEGRAPH REPEATER TECHNICIAN Hermelindo Butler MD LAB BLOOD ORDER ELANA Final Result [facility] Department [place] [address] * (ABNORMAL) Immunoglobulin free light chains (08/03/2024 7:40 AM TELEGRAPH REPEATER TECHNICIAN) [place]/Lambda ratio [facility] See Comment 0.26 - 1.65 Comment: Unable to calculate exact result. Interpretive Data The Binding Site FreeLite assay procedure was used. Results from different manufacturers or methods may not be comparable. Serial testing should be performed using the same methods and instrumentation. Current Interpretive Data was last revised on 2023. [place] free light chain [facility] <0.06(L) 0.33 - 1.94 mg/dL [facility] Comment: Interpretive Data The Binding Site FreeLite assay procedure was used. Results from different manufacturers or methods may not be comparable. Serial testing should be performed using the same methods and instrumentation. Current Interpretive Data was last revised on 2023. Lambda free light chain [facility] <0.13(L) 0.57 - 2.63 mg/dL [facility] Comment: Interpretive Data The Binding Site FreeLite assay procedure was used. Results from different manufacturers or methods may not be comparable. Serial testing should be performed using the same methods and instrumentation. Current Interpretive Data was last revised on 2023. Blood 08/03/2024 7:40 AM TELEGRAPH REPEATER TECHNICIAN 08/03/2024 8:24 AM TELEGRAPH REPEATER TECHNICIAN Hermelindo Butler MD LAB BLOOD ORDER ELANA Final Result [facility] Department [place] [address] * (ABNORMAL) CBC with auto differential (08/03/2024 7:40 AM TELEGRAPH REPEATER TECHNICIAN) WBC 7.9 3.8 - 9.9 K/cumm Comment:Testing performed by : [facility], [address] [place] [address] Hgb 13.7 13.0 - 17.5 g/dL [facility] Comment:Testing performed by : [facility], [address] [place] [address] Hct 41.5 38.9 - 50.3 % [facility]ER[facility]ANK SU[facility] Comment:Testing performed by : [facility], [address] [place] [address] Plt 163 150 - 400 K/cumm [facility]ER[facility]ANK BJ Comment:Testing performed by : [facility], [address] [place] [address] MPV 7.8 6.8 - 10.4 fL [facility]ER[facility]ANK [facility]J Comment:Testing performed by : [facility], [address] [place] [address] RBC 4.50 4.30 - 5.80 M/cumm [facility]ER[facility]ANK [facility] Comment:Testing performed by : [facility], [address] [place] [address] MCV 92.1 81.3 - 96.4 fL [facility]ER[facility] Comment:Testing performed by : [facility], [address] [place] [address] MCH 30.4 27.1 - 33.3 pg [facility]ER[facility]ANK [facility] Comment:Testing performed by : [facility], [address] [place] [address] MCHC 33.0 32.3 - 35.7 g/dL [facility] Comment:Testing performed by : [facility], [address] [place] [address] RDW CV 16.6(H) 11.1 - 14.9 % [facility] Comment:Testing performed by : [facility], [facility] [place] [address] NRBC abs 0.00 0.00 - 0.01 K/cumm [facility] Comment:Testing performed by : [facility], [facility] [place] [address] Blood 08/03/2024 7:40 AM TELEGRAPH REPEATER TECHNICIAN 08/03/2024 7:47 AM TELEGRAPH REPEATER TECHNICIAN Hermelindo Butler MD LAB BLOOD ORDER ELANA Final Result [facility] [place] [address] * (ABNORMAL) Protein electrophoresis with reflex, serum with interpretation (08/03/2024 7:40 AM TELEGRAPH REPEATER TECHNICIAN) Pathologist [facility] Protein, sr 5.7(L) 6.2 - 8.2 g/dL Albumin 3.8 3.2 - 5.0 g/dL [facility] Alpha-1 globulin 0.3 0.2 - 0.4 g/dL [facility] Alpha-2 globulin 0.6 0.5 - 1.0 g/dL [facility] Beta-1 globulin 0.4 0.3 - 0.6 g/dL [facility] Beta-2 globulin 0.3 0.2 - 0.6 g/dL [facility] Gamma globulin 0.2(L) 0.5 - 1.7 g/dL [facility] SPEP interp Please see comment [facility] Comment: No apparent monoclonal peak Decreased gamma globulins Electrophoretic pattern appears similar to previous sample 07/14/24 *See immunotyping for further information Reviewed and signed by Hermelindo Mcnulty MD 08/04/2024 Blood 08/03/2024 7:40 AM TELEGRAPH REPEATER TECHNICIAN 08/03/2024 8:24 AM TELEGRAPH REPEATER TECHNICIAN Hermelindo Butler MD LAB BLOOD ORDER ELANA Final Result Performing Organization Address [facility] de Phone Number [facility] [place] [id number] * Magnesium (08/03/2024 7:40 AM TELEGRAPH REPEATER TECHNICIAN) [facility] Magnesium 2.2 1.4 - 2.5 mg/dL Blood 08/03/2024 7:40 AM TELEGRAPH REPEATER TECHNICIAN 08/03/2024 9:36 AM TELEGRAPH REPEATER TECHNICIAN Hermelindo Butler MD LAB BLOOD ORDER ELANA Final Result Performing Organization Address [facility] de Phone Number [facility] [place] [address] * Lactate dehydrogenase (LD) (08/03/2024 7:40 AM TELEGRAPH REPEATER TECHNICIAN) [facility] Lactate dehydrogenase (LDH) 172 100 - 250 Units/L Blood 08/03/2024 7:40 AM TELEGRAPH REPEATER TECHNICIAN 08/03/2024 7:49 AM TELEGRAPH REPEATER TECHNICIAN Hermelindo Butler MD LAB BLOOD ORDER ELANA Final Result Performing Organization Address [facility] de Phone Number [facility] [place] [address] * (ABNORMAL) Hemoglobin A1c (08/03/2024 7:40 AM TELEGRAPH REPEATER TECHNICIAN) [facility] Hgb A1C 5.8(H) 4.0 - 5.6 % Estimated Average Glucose 120 mg/dL [facility] Comment: The ADA recommends reporting an estimated Average Glucose (eAG) with all Hemoglobin A1c results using the equation derived from a study of 507 normal and diabetic adults. Minority populations were underrepresented and children were not included. (Diabetes Care 2020; 43(S1): S66-S76). The eAG is not equivalent to a fasting glucose. Blood 08/03/2024 7:40 AM TELEGRAPH REPEATER TECHNICIAN 08/03/2024 7:49 AM TELEGRAPH REPEATER TECHNICIAN Lyndsey Fagan NP LAB BLOOD ORDERABLES Angeles l Result Performing Organization Address [facility] de Phone Number [facility] [place] [address] * Gamma GT (08/03/2024 7:40 AM TELEGRAPH REPEATER TECHNICIAN) GGT 23 10 - 50 Units/L Blood 08/03/2024 7:40 AM TELEGRAPH REPEATER TECHNICIAN 08/03/2024 9:36 AM TELEGRAPH REPEATER TECHNICIAN Hermelindo Butler MD LAB BLOOD ORDER ELANA Final Result Performing Organization Address [facility] de Phone Number [facility] [place] [address] * (ABNORMAL) IgA (08/03/2024 7:40 AM TELEGRAPH REPEATER TECHNICIAN) Immunoglobulin A <50(L) 70 - 400 mg/dL Blood 08/03/2024 7:40 AM TELEGRAPH REPEATER TECHNICIAN 08/03/2024 8:09 AM TELEGRAPH REPEATER TECHNICIAN Hermelindo Butler MD LAB BLOOD ORDER ELANA Final Result Performing Organization Address [facility] de Phone Number [facility] Department [place] [address] * (ABNORMAL) IgM (08/03/2024 7:40 AM TELEGRAPH REPEATER TECHNICIAN) Immunoglobulin M <25(L) 40 - 230 mg/dL Blood 08/03/2024 7:40 AM TELEGRAPH REPEATER TECHNICIAN 08/03/2024 8:09 AM TELEGRAPH REPEATER TECHNICIAN Hermelindo Butler MD LAB BLOOD ORDER ELANA Final Result Performing Organization Address [facility]/ZIP Co de Phone Number [facility] Department [place] [address] * (ABNORMAL) IgG (08/03/2024 7:40 AM TELEGRAPH REPEATER TECHNICIAN) Pathologist [facility] Immunoglobulin G <300(L) 700 - 1,600 mg/dL Blood 08/03/2024 7:40 AM TELEGRAPH REPEATER TECHNICIAN 08/03/2024 8:09 AM TELEGRAPH REPEATER TECHNICIAN Hermelindo Butler MD LAB BLOOD ORDER ELANA Final Result MT [facility] Department [place] [address] * (ABNORMAL) Comprehensive metabolic panel (08/03/2024 7:40 AM TELEGRAPH REPEATER TECHNICIAN) [facility] Sodium 141 135 - 145 mmol/L Potassium, pl 4.0 3.3 - 4.9 mmol/L [facility] Chloride 104 97 - 110 mmol/L [facility] CO2 30 22 - 32 mmol/L [facility] Anion gap 7 2 - 15 mmol/L [facility] BUN 47(H) 6 - 25 mg/dL [facility] Creatinine 1.92(H) 0.80 - 1.30 mg/dL [facility] Glucose 116 70 - 199 mg/dL [facility] Comment: Interpretive Data Fasting glucose [...] 2022. Calcium 9.2 8.5 - 10.3 mg/dL [facility] Bilirubin, total 0.7 0.1 - 1.2 mg/dL [facility] Protein, pl 6.2(L) 6.5 - 8.5 g/dL [facility] Albumin 3.9 3.5 - 5.0 g/dL [facility] Alk phos 63 40 - 130 Units/L [facility] ALT 15 7 - 55 Units/L [facility] AST 17 10 - 50 Units/L [facility] Blood 08/03/2024 7:40 AM TELEGRAPH REPEATER TECHNICIAN 08/03/2024 7:49 AM TELEGRAPH REPEATER TECHNICIAN Hermelindo Butler MD LAB BLOOD ORDER ELANA Final Result [facility] Department [place] [address] * (ABNORMAL) Urinalysis reflex to microscopic and culture Urine, clean voided (08/03/2024 7:30 AM TELEGRAPH REPEATER TECHNICIAN) Color, ur Straw Yellow Clarity, ur Clear Clear [facility] Specific gravity, ur 1.012 1.003 - 1.030 [facility] pH, urine 5.5 [facility] Comment: Interpretive Data U rine pH is affected by diet, medications, systemic acid-base disturbances, and renal tubular function. pH may affect urinary stone formation. For example, urine pH below 6.0 may help reduce the tendency for calcium phosphate stones and pH greater than 6.0 may reduce the tendency for uric acid stone formation. Source: [facility] Current Interpretive Data was last revised on 2017 Protein, ur ql Negative Negative [facility] Glucose, ur ql Negative Negative [facility] Ketones, ur Negative Negative [facility] Bilirubin, ur Negative Negative [facility] Blood, ur 2+(A) Negative [facility] Urobilinogen, ur <2.0 <2.0 mg/dL [facility] Nitrite, ur Negative Negative [facility] Leukocyte esterase, ur Negative [facility] UA reflex comment Reflex to microscopic UA will be performed. [facility] Urine, clean voided 08/03/2024 7:30 AM TELEGRAPH REPEATER TECHNICIAN 08/03/2024 7:30 AM TELEGRAPH REPEATER TECHNICIAN us Lyndsey Fagan TANK BUILDER HELPER LAB MICROBIOLOGY - GENERA L ORDERABLES Final Result [facility] [place] [address] * (ABNORMAL) Urinalysis, microscopic only (08/03/2024 7:30 AM TELEGRAPH REPEATER TECHNICIAN) WBC, ur 6-10(A) 0 - 5 /HPF RBC, ur 11-20(A) 0 - 2 /HPF [facility] Epithelial cells, squamous, ur 1-5 0 - 5 /HPF [facility] Bacteria, ur Trace(A) [facility] Culture Reflex Comment Reflex conditions for urine culture (WBC >10) not met. [facility] Urine, clean voided 08/03/2024 7:30 AM TELEGRAPH REPEATER TECHNICIAN 08/03/2024 7:30 AM TELEGRAPH REPEATER TECHNICIAN Lyndsey Fagan NP LAB URINE ORDERABLES Angeles l Result Performing Organization Address City/[facility]/ZIP Co de Phone Number [facility] [place] [address] * Urine culture Urine, clean voided (08/03/2024 7:30 AM TELEGRAPH REPEATER TECHNICIAN) Report Final Report: No growth Urine, clean voided 08/03/2024 7:30 AM TELEGRAPH REPEATER TECHNICIAN 08/03/2024 9:59 AM TELEGRAPH REPEATER TECHNICIAN Narrative [facility] - 08/04/2024 11:14 AM TELEGRAPH REPEATER TECHNICIAN Testing performed by [facility] ([phone]) Hermelindo Butler MD LAB MICROBIOLOG Y - GENERAL ORDERABLES Final Result [facility] [place] [address] * Immunotyping, serum with interpretation (07/13/2024 7:40 AM TELEGRAPH REPEATER TECHNICIAN) Pathologist [facility] Immunosubtraction Please see comment Comment: NO PARAPROTEIN DETECTED Reviewed and signed by Rufino Huff MD, PhD 07/14/2024 Blood 07/13/2024 7:40 AM TELEGRAPH REPEATER TECHNICIAN 07/13/2024 8:42 AM TELEGRAPH REPEATER TECHNICIAN Hermelindo Butler MD LAB BLOOD ORDER ELANA Final Result Performing Organization Address City/[facility] Co de Phone Number MT [facility] [place] [address] * (ABNORMAL) eGFR (07/13/2024 7:40 AM TELEGRAPH REPEATER TECHNICIAN) Pathologist [facility] [...] last reviewed 2021. Blood 07/13/2024 7:40 AM TELEGRAPH REPEATER TECHNICIAN 07/13/2024 7:47 AM TELEGRAPH REPEATER TECHNICIAN Hermelindo Butler MD LAB BLOOD ORDER ELANA Final Result Performing Organization Address City/[facility]/ZIP Co de Phone Number [facility] [place] [address] * Differential, auto (07/13/2024 7:40 AM TELEGRAPH REPEATER TECHNICIAN) Neutrophil abs 5.4 1.5 - 6.5 K/cumm Comment:Testing performed by : [facility], [address] [place] [phone] Lymphocyte abs 0.9 0.8 - 3.3 K/cumm [facility] Comment:Testing performed by : [facility], [address] [place] [phone] Monocyte abs 0.5 0.2 - 0.8 K/cumm [facility] Comment:Testing performed by : [facility], [address] [place] [phone] Eosinophil abs 0.5 0.0 - 0.5 K/cumm [facility] Comment:Testing performed by : [facility], [address] [place], [place] [phone] Basophil abs 0.0 0.0 - 0.1 K/cumm [facility] Comment:Testing performed by : [facility], [address] [place] [phone] Neutrophil pct 73.6 % [facility] Comment: Interpretive Data Percent cell count reference ranges are not reported, since discordance with absolute values may lead to misinterpretation of CBC data. Current Interpretive Data was last revised on 2017. Testing performed by: [facility], [address] [place] [phone] Lymphocyte pct 12.0 % [facility] Comment: Interpretive Data Percent cell count reference ranges are not reported, since discordance with absolute values may lead to misinterpretation of CBC data. Current Interpretive Data was last revised on 2017. Testing performed by: [facility], [address] [place] [phone] Monocyte pct 7.4 % [facility] Comment: Interpretive Data Percent cell count reference ranges are not reported, since discordance with absolute values may lead to misinterpretation of CBC data. Current Interpretive Data was last revised on 2017. Testing performed by: [facility], [address] [place], [place] [phone] Eosinophil pct 6.5 % [facility] Comment: Interpretive Data Percent cell count reference ranges are not reported, since discordance with absolute values may lead to misinterpretation of CBC data. Current Interpretive Data was last revised on 2017. Testing performed by: [facility], [address] [place] [phone] Basophil pct 0.5 % [facility] Comment: Interpretive Data Percent cell count reference ranges are not reported, since discordance with absolute values may lead to misinterpretation of CBC data. Current Interpretive Data was last revised on 2017. Testing performed by: [facility], [address] [place] [phone] Blood 07/13/2024 7:40 AM TELEGRAPH REPEATER TECHNICIAN 07/13/2024 7:46 AM TELEGRAPH REPEATER TECHNICIAN Hermelindo Butler MD LAB BLOOD ORDER ELANA Final Result [facility] [place] [address] * (ABNORMAL) Immunoglobulin free light chains (07/13/2024 7:40 AM TELEGRAPH REPEATER TECHNICIAN) [facility] [facility]/Lambda ratio [facility] See Comment 0.26 - 1.65 Comment: Unable to calculate exact result. Interpretive Data The Binding Site FreeLite assay procedure was used. Results from different manufacturers or methods may not be comparable. Serial testing should be performed using the same methods and instrumentation. Current Interpretive Data was last revised on 2023. [facility] [facility] free light chain [facility] <0.06(L) 0.33 - [...] revised on 2023. Blood 07/13/2024 7:40 AM TELEGRAPH REPEATER TECHNICIAN 07/13/2024 8:42 AM TELEGRAPH REPEATER TECHNICIAN Hermelindo Butler MD LAB BLOOD ORDER ELANA Final Result [facility] [place] [address] * (ABNORMAL) CBC with auto differential (07/13/2024 7:40 AM TELEGRAPH REPEATER TECHNICIAN) WBC 7.4 3.8 - 9.9 K/cumm Comment:Testing performed by : [facility], [address] [place] [address] Hgb 14.4 13.0 - 17.5 g/dL [facility] Comment:Testing performed by : [facility], [address] [place] [address] Hct 44.1 38.9 - 50.3 % [facility] Comment:Testing performed by : [facility], [address] [place] [address] Plt 174 150 - 400 K/cumm [facility] Comment:Testing performed by : [facility], [address] [place] [address] MPV 7.5 6.8 - 10.4 fL [facility] Comment:Testing performed by : [facility], [address] [place] [address] RBC 4.75 4.30 - 5.80 M/cumm [facility] Comment:Testing performed by : [facility], [address] [place] [address] MCV 92.8 81.3 - 96.4 fL [facility] Comment:Testing performed by : [facility], [address] [place] [address] MCH 30.2 27.1 - 33.3 pg MT [facility] Comment:Testing performed by : [facility], [address] [place] [address] MCHC 32.6 32.3 - 35.7 g/dL MT [facility] Comment:Testing performed by : [facility], [address] [place] [address] RDW CV 16.2(H) 11.1 - 14.9 % MT [facility] Comment:Testing performed by : [facility], [address] [place] [address] NRBC abs 0.00 0.00 - 0.01 K/cumm MT [facility] Comment:Testing performed by : [facility], [address] [place] [address] Blood 07/13/2024 7:40 AM TELEGRAPH REPEATER TECHNICIAN 07/13/2024 7:46 AM TELEGRAPH REPEATER TECHNICIAN Hermelindo Butler MD LAB BLOOD ORDER ELANA Final Result [facility] Department of Laboratories [place], [place] [id number] * (ABNORMAL) Protein electrophoresis with reflex, serum with interpretation (07/13/2024 7:40 AM TELEGRAPH REPEATER TECHNICIAN) Protein, sr 5.7(L) 6.2 - 8.2 g/dL Albumin 3.7 3.2 - 5.0 g/dL [facility] Alpha-1 globulin 0.3 0.2 - 0.4 g/dL [facility] Alpha-2 globulin 0.6 0.5 - 1.0 g/dL [facility] Beta-1 globulin 0.4 0.3 - 0.6 g/dL [facility] Beta-2 globulin 0.3 0.2 - 0.6 g/dL [facility] Gamma globulin 0.3(L) 0.5 - 1.7 g/dL [facility] SPEP interp Please see comment [facility] Comment: No apparent monoclonal peak Decreased gamma globulins Electrophoretic pattern appears similar to previous sample 06/23/24 See immunotyping for further information Reviewed and signed by Rufino Huff MD, PhD 07/14/2024 Blood 07/13/2024 7:40 AM TELEGRAPH REPEATER TECHNICIAN 07/13/2024 8:42 AM TELEGRAPH REPEATER TECHNICIAN Hermelindo Butler MD LAB BLOOD ORDER ELANA Final Result Performing Organization Address City/[facility] de Phone Number [facility] [place] [address] * Magnesium (07/13/2024 7:40 AM TELEGRAPH REPEATER TECHNICIAN) Magnesium 2.2 1.4 - 2.5 mg/dL Blood 07/13/2024 7:40 AM TELEGRAPH REPEATER TECHNICIAN 07/13/2024 7:47 AM TELEGRAPH REPEATER TECHNICIAN Hermelindo Butler MD LAB BLOOD ORDER ELANA Final Result Performing Organization Address [facility] de Phone Number [facility] [place] [address] * Lactate dehydrogenase (LD) (07/13/2024 7:40 AM TELEGRAPH REPEATER TECHNICIAN) Lactate dehydrogenase (LDH) 152 100 - 250 Units/L Blood 07/13/2024 7:40 AM TELEGRAPH REPEATER TECHNICIAN 07/13/2024 7:47 AM TELEGRAPH REPEATER TECHNICIAN Hermelindo Butler MD LAB BLOOD ORDER ELANA Final Result Performing Organization Address [facility] de Phone Number [facility] [place] [address] * Gamma GT (07/13/2024 7:40 AM TELEGRAPH REPEATER TECHNICIAN) GGT 27 10 - 50 Units/L Blood 07/13/2024 7:40 AM TELEGRAPH REPEATER TECHNICIAN 07/13/2024 7:47 AM TELEGRAPH REPEATER TECHNICIAN us Hermelindo Butler MD LAB BLOOD ORDER ELANA Final Result Performing Organization Address [facility] de Phone Number [facility] [place] [address] * (ABNORMAL) IgA (07/13/2024 7:40 AM TELEGRAPH REPEATER TECHNICIAN) Immunoglobulin A <50(L) 70 - 400 mg/dL Blood 07/13/2024 7:40 AM TELEGRAPH REPEATER TECHNICIAN 07/13/2024 7:59 AM TELEGRAPH REPEATER TECHNICIAN us Hermelindo Butler MD LAB BLOOD ORDER ELANA Final Result Performing Organization Address [facility] de Phone Number [facility] Department [place] [address] * (ABNORMAL) IgM (07/13/2024 7:40 AM TELEGRAPH REPEATER TECHNICIAN) Immunoglobulin M <25(L) 40 - 230 mg/dL Blood 07/13/2024 7:40 AM TELEGRAPH REPEATER TECHNICIAN 07/13/2024 7:59 AM TELEGRAPH REPEATER TECHNICIAN us Hermelindo Butler MD LAB BLOOD ORDER ELANA Final Result Performing Organization Address [facility] de Phone Number [facility] [place] [address] * (ABNORMAL) IgG (07/13/2024 7:40 AM TELEGRAPH REPEATER TECHNICIAN) Immunoglobulin G <300(L) 700 - 1,600 mg/dL Blood 07/13/2024 7:40 AM TELEGRAPH REPEATER TECHNICIAN 07/13/2024 7:59 AM TELEGRAPH REPEATER TECHNICIAN us Hermelindo Butler MD LAB BLOOD ORDER ELANA Final Result [facility] [place] [address] * (ABNORMAL) Comprehensive metabolic panel (07/13/2024 7:40 AM TELEGRAPH REPEATER TECHNICIAN) Sodium 144 135 - 145 mmol/L Potassium, pl 4.2 3.3 - 4.9 mmol/L [facility] Chloride 107 97 - 110 mmol/L [facility] CO2 33(H) 22 - 32 mmol/L [facility] Anion gap 4 2 - 15 mmol/L [facility] BUN 29(H) 6 - 25 mg/dL [facility] Creatinine 1.34(H) 0.80 - 1.30 mg/dL [facility] Glucose 125 70 - 199 mg/dL [facility] Comment: Interpretive Data Fasting glucose [...] Calcium 9.4 8.5 - 10.3 mg/dL [facility] Bilirubin, total 0.7 0.1 - 1.2 mg/dL [facility] Protein, pl 6.2(L) 6.5 - 8.5 g/dL [facility] Albumin 4.1 3.5 - 5.0 g/dL [facility] Alk phos 65 40 - 130 Units/L [facility] ALT 18 7 - 55 Units/L [facility] AST 16 10 - 50 Units/L [facility] Blood 07/13/2024 7:40 AM TELEGRAPH REPEATER TECHNICIAN 07/13/2024 7:47 AM TELEGRAPH REPEATER TECHNICIAN Hermelindo Butler MD LAB BLOOD ORDER ELANA Final Result Performing Organization Address City/[facility] de Phone Number [facility] [place] [address] * aPTT (07/13/2024 7:24 AM TELEGRAPH REPEATER TECHNICIAN) aPTT 28 28 - 38 sec Comment: Interpretive Data Heparin therapeutic range: 66.0 - 100.0 seconds. Range based on correlation with therapeutic heparin activity range of 0.3 - 0.7 Units/mL. Current interpretive data was last revised on 2023. Blood 07/13/2024 7:24 AM TELEGRAPH REPEATER TECHNICIAN 07/13/2024 7:59 AM TELEGRAPH REPEATER TECHNICIAN Hermelindo Butler MD LAB BLOOD ORDER ELANA Final Result Performing Organization Address [facility] [place] [address] * Protime-INR (07/13/2024 7:24 AM TELEGRAPH REPEATER TECHNICIAN) PT 11.5 9.7 - 13.0 sec INR 1.06 0.90 - 1.20 [facility] Comment: Interpretive data Oral anticoagulant therapeutic ranges: Venous thromboembolism prophylaxis or treatment: 2.0-3.0 CARDIOLOGY Standard range: 2.0-3.0 High-intensity range: 2.5-3.5 Refer to indication-specific guidelines for appropriate target ranges for prosthetic heart valve replacement. Current interpretive data was last revised on 2019. Blood 07/13/2024 7:24 AM TELEGRAPH REPEATER TECHNICIAN 07/13/2024 7:59 AM TELEGRAPH REPEATER TECHNICIAN Hermelindo Butler MD LAB BLOOD ORDER ELANA Final Result Performing Organization Address [facility] de Phone Number MT [facility] [place] [address] * Immunotyping, serum (06/22/2024 7:20 AM TELEGRAPH REPEATER TECHNICIAN) Immunosubtraction Please see comment Comment: NO PARAPROTEIN DETECTED Reviewed and signed by Fernando Nunez MD, PhD 06/23/2024 Blood 06/22/2024 7:20 AM TELEGRAPH REPEATER TECHNICIAN 06/22/2024 10:03 AM TELEGRAPH REPEATER TECHNICIAN Hermelindo Butler MD LAB BLOOD ORDER ELNAA Final Result Performing Organization Address City/[facility] Co de Phone Number [facility] [place] [address] * eGFR (06/22/2024 7:20 AM TELEGRAPH REPEATER TECHNICIAN) Pathologist [facility] [...] last reviewed 2021. Blood 06/22/2024 7:20 AM TELEGRAPH REPEATER TECHNICIAN 06/22/2024 8:12 AM TELEGRAPH REPEATER TECHNICIAN Hermelindo Butler MD LAB BLOOD ORDER ELANA Final Result Performing Organization Address City/[facility]/ZIP Co de Phone Number [facility] Department [place] [address] * Differential, auto (06/22/2024 7:20 AM TELEGRAPH REPEATER TECHNICIAN) Pathologist [facility] Neutrophil abs 5.4 1.5 - 6.5 K/cumm Comment:Testing performed by : [facility], [address] [place] [phone] Lymphocyte abs 0.9 0.8 - 3.3 K/cumm [facility] Comment:Testing performed by : [facility], [address] [place] [phone] Monocyte abs 0.5 0.2 - 0.8 K/cumm [facility] Comment:Testing performed by : [facility], [address] [place] [phone] Eosinophil abs 0.2 0.0 - 0.5 K/cumm [facility] Comment:Testing performed by : [facility], [address] [place] [phone] Basophil abs 0.0 0.0 - 0.1 K/cumm [facility] Comment:Testing performed by : [facility], [address] [place] [phone] Neutrophil pct 75.7 % [facility] Comment: Interpretive Data Percent cell count reference ranges are not reported, since discordance with absolute values may lead to misinterpretation of CBC data. Current Interpretive Data was last revised on 2017. Testing performed by: [facility], [address] [place] [phone] Lymphocyte pct 13.1 % C[facility]ER [facility] Comment: Interpretive Data Percent cell count reference ranges are not reported, since discordance with absolute values may lead to misinterpretation of CBC data. Current Interpretive Data was last revised on 2017. Testing performed by: [facility], [address] [place] [phone] Monocyte pct 7.1 % [facility] Comment: Interpretive Data Percent cell count reference ranges are not reported, since discordance with absolute values may lead to misinterpretation of CBC data. Current Interpretive Data was last revised on 2017. Testing performed by: [facility], [address] [place] [phone] Eosinophil pct 3.5 % MT SUAREZ Comment: Interpretive Data Percent cell count reference ranges are not reported, since discordance with absolute values may lead to misinterpretation of CBC data. Current Interpretive Data was last revised on 2017. Testing performed by: [facility], [address] [place] [phone] Basophil pct 0.6 % MT SUAREZ Comment: Interpretive Data Percent cell count reference ranges are not reported, since discordance with absolute values may lead to misinterpretation of CBC data. Current Interpretive Data was last revised on 2017. Testing performed by: [facility], [address] [place] [phone] Blood 06/22/2024 7:20 AM TELEGRAPH REPEATER TECHNICIAN 06/22/2024 8:08 AM TELEGRAPH REPEATER TECHNICIAN Hermelindo Butler MD LAB BLOOD ORDER ELANA Final Result [facility] [place] [address] * (ABNORMAL) Immunoglobulin free light chains (06/22/2024 7:20 AM TELEGRAPH REPEATER TECHNICIAN) [place]/Lambda ratio [facility] See Comment 0.26 - 1.65 Comment: Unable to calculate exact result. Interpretive Data The Binding Site FreeLite assay procedure was used. Results from different manufacturers or methods may not be comparable. Serial testing should be performed using the same methods and instrumentation. Current Interpretive Data was last revised on 2023. [place] free light chain [facility] <0.06(L) 0.33 - 1.94 mg/dL MT [facility] Comment: Interpretive Data The Binding Site FreeLite assay procedure was used. Results from different manufacturers or methods may not be comparable. Serial testing should be performed using the same methods and instrumentation. Current Interpretive Data was last revised on 2023. Lambda free light chain [facility] <0.13(L) 0.57 - 2.63 mg/dL MT [facility] Comment: Interpretive Data The Binding Site FreeLite assay procedure was used. Results from different manufacturers or methods may not be comparable. Serial testing should be performed using the same methods and instrumentation. Current Interpretive Data was last revised on 2023. Blood 06/22/2024 7:20 AM TELEGRAPH REPEATER TECHNICIAN 06/22/2024 9:53 AM TELEGRAPH REPEATER TECHNICIAN Hermelindo Butler MD LAB BLOOD ORDER ELANA Final Result [facility] Department [place] [address] * (ABNORMAL) CBC with auto differential (06/22/2024 7:20 AM TELEGRAPH REPEATER TECHNICIAN) WBC 7.1 3.8 - 9.9 K/cumm Comment:Testing performed by : [facility], [address] [place] [address] Hgb 14.6 13.0 - 17.5 g/dL CERNER [facility] Comment:Testing performed by : [facility], [address] [place] [address] Hct 45.6 38.9 - 50.3 % CERNER [facility] Comment:Testing performed by : [facility], [address] [place] [address] Plt 196 150 - 400 K/cumm CERFRANK [facility] Comment:Testing performed by : [facility], [address] [place] [address] MPV 8.3 6.8 - 10.4 fL CERNER [facility] Comment:Testing performed by : [facility], [address] [place] [address] RBC 4.88 4.30 - 5.80 M/cumm CERFRANK BJ Comment:Testing performed by : [facility], [address] [place] [address] MCV 93.5 81.3 - 96.4 fL CERNER BJ Comment:Testing performed by : [facility], [address] [place] [address] MCH 29.9 27.1 - 33.3 pg MT [facility] Comment:Testing performed by : [facility], [address] [place] [phone] MCHC 31.9(L) 32.3 - 35.7 g/dL MT [facility] Comment:Testing performed by : [facility], [address] [place] [phone] RDW CV 16.0(H) 11.1 - 14.9 % MT [facility] Comment:Testing performed by : [facility], [address] [place] [phone] NRBC abs 0.20(H) 0.00 - 0.01 K/cumm MT [facility] Comment:Testing performed by : [facility], [address] [place] [phone] Blood 06/22/2024 7:20 AM TELEGRAPH REPEATER TECHNICIAN 06/22/2024 8:08 AM TELEGRAPH REPEATER TECHNICIAN Hermelindo Butler MD LAB BLOOD ORDER ELANA Final Result Performing Organization Address City/[facility] Co de Phone Number [facility] [place] [address] * aPTT (06/22/2024 7:20 AM TELEGRAPH REPEATER TECHNICIAN) aPTT 29 28 - 38 sec Comment: Interpretive Data Heparin therapeutic range: 66.0 - 100.0 seconds. Range based on correlation with therapeutic heparin activity range of 0.3 - 0.7 Units/mL. Current interpretive data was last revised on 2023. Blood 06/22/2024 7:20 AM TELEGRAPH REPEATER TECHNICIAN 06/22/2024 9:50 AM TELEGRAPH REPEATER TECHNICIAN Hermelindo Butler MD LAB BLOOD ORDER ELANA Final Result Performing Organization Address City/[facility] Co de Phone Number [facility] [place] [address] * Protime-INR (06/22/2024 7:20 AM TELEGRAPH REPEATER TECHNICIAN) PT 10.9 9.7 - 13.0 sec INR 1.01 0.90 - 1.20 [facility] Comment: Interpretive data Oral anticoagulant therapeutic ranges: Venous thromboembolism prophylaxis or treatment: 2.0-3.0 CARDIOLOGY Standard range: 2.0-3.0 High-intensity range: 2.5-3.5 Refer to indication-specific guidelines for appropriate target ranges for prosthetic heart valve replacement. Current interpretive data was last revised on 2019. Blood 06/22/2024 7:20 AM TELEGRAPH REPEATER TECHNICIAN 06/22/2024 9:50 AM TELEGRAPH REPEATER TECHNICIAN Hermelindo Butler MD LAB BLOOD ORDER ELANA Final Result [facility] Department [place] [address] * (ABNORMAL) Protein electrophoresis with reflex, serum (06/22/2024 7:20 AM TELEGRAPH REPEATER TECHNICIAN) Protein, sr 5.9(L) 6.2 - 8.2 g/dL Albumin 3.7 3.2 - 5.0 g/dL [facility] Alpha-1 globulin 0.3 0.2 - 0.4 g/dL [facility] Alpha-2 globulin 0.7 0.5 - 1.0 g/dL [facility] Beta-1 globulin 0.5 0.3 - 0.6 g/dL [facility] Beta-2 globulin 0.3 0.2 - 0.6 g/dL [facility] Gamma globulin 0.4(L) 0.5 - 1.7 g/dL [facility] SPEP interp Please see comment [facility] Comment: No apparent monoclonal peak Decreased gamma globulins Electrophoretic pattern appears similar to previous sample 05-19-24 See immunotyping for further information Reviewed and signed by Fernando Nunez MD, PhD 06/23/2024 Immunotyping See Immunotyping Results [facility] Blood 06/22/2024 7:20 AM TELEGRAPH REPEATER TECHNICIAN 06/22/2024 9:55 AM TELEGRAPH REPEATER TECHNICIAN us Hermelindo Butler MD LAB BLOOD ORDER ELANA Final Result Performing Organization Address [facility] de Phone Number [facility] [place] [address] * Magnesium (06/22/2024 7:20 AM TELEGRAPH REPEATER TECHNICIAN) Magnesium 2.2 1.4 - 2.5 mg/dL Blood 06/22/2024 7:20 AM TELEGRAPH REPEATER TECHNICIAN 06/22/2024 8:12 AM TELEGRAPH REPEATER TECHNICIAN us Hermelindo Butler MD LAB BLOOD ORDER ELANA Final Result Performing Organization Address [facility] de Phone Number [facility] Department [place] [address] * Lactate dehydrogenase (LD) (06/22/2024 7:20 AM TELEGRAPH REPEATER TECHNICIAN) Lactate dehydrogenase (LDH) 157 100 - 250 Units/L Blood 06/22/2024 7:20 AM TELEGRAPH REPEATER TECHNICIAN 06/22/2024 8:12 AM TELEGRAPH REPEATER TECHNICIAN Hermelindo Butler MD LAB BLOOD ORDER ELANA Final Result Performing Organization Address [facility] de Phone Number [facility] Department [place] [address] * Gamma GT (06/22/2024 7:20 AM TELEGRAPH REPEATER TECHNICIAN) GGT 30 10 - 50 Units/L Blood 06/22/2024 7:20 AM TELEGRAPH REPEATER TECHNICIAN 06/22/2024 8:12 AM TELEGRAPH REPEATER TECHNICIAN Hermelindo Butler MD LAB BLOOD ORDER ELANA Final Result Performing Organization Address City/[facility]/ZIP Co de Phone Number [facility] Department [place] [address] * (ABNORMAL) IgA (06/22/2024 7:20 AM TELEGRAPH REPEATER TECHNICIAN) Immunoglobulin A <50(L) 70 - 400 mg/dL Blood 06/22/2024 7:20 AM TELEGRAPH REPEATER TECHNICIAN 06/22/2024 9:49 AM TELEGRAPH REPEATER TECHNICIAN Hermelindo Butler MD LAB BLOOD ORDER ELANA Final Result Performing Organization Address [facility] Co de Phone Number [facility] [place] [address] * (ABNORMAL) IgM (06/22/2024 7:20 AM TELEGRAPH REPEATER TECHNICIAN) Pathologist [facility] Immunoglobulin M <25(L) 40 - 230 mg/dL Blood 06/22/2024 7:20 AM TELEGRAPH REPEATER TECHNICIAN 06/22/2024 9:49 AM TELEGRAPH REPEATER TECHNICIAN Hermelindo Butler MD LAB BLOOD ORDER ELANA Final Result Performing Organization Address [facility] Co de Phone Number [facility] Department [place] [address] * (ABNORMAL) IgG (06/22/2024 7:20 AM TELEGRAPH REPEATER TECHNICIAN) Pathologist [facility] Immunoglobulin G 423(L) 700 - 1,600 mg/dL Blood 06/22/2024 7:20 AM TELEGRAPH REPEATER TECHNICIAN 06/22/2024 9:49 AM TELEGRAPH REPEATER TECHNICIAN Hermelindo Butler MD LAB BLOOD ORDER ELANA Final Result Performing Organization Address [facility] Co de Phone Number [facility] Department [place] [address] * (ABNORMAL) Comprehensive metabolic panel (06/22/2024 7:20 AM TELEGRAPH REPEATER TECHNICIAN) Sodium 141 135 - 145 mmol/L Potassium, pl 4.1 3.3 - 4.9 mmol/L [facility] Chloride 104 97 - 110 mmol/L [facility] CO2 31 22 - 32 mmol/L [facility] Anion gap 6 2 - 15 mmol/L [facility] BUN 24 6 - 25 mg/dL [facility] Creatinine 1.18 0.80 - 1.30 mg/dL [facility] Glucose 111 70 - 199 mg/dL [facility] Comment: Interpretive Data Fasting glucose [...] 2022. Calcium 9.5 8.5 - 10.3 mg/dL [facility] Bilirubin, total 0.7 0.1 - 1.2 mg/dL [facility] Protein, pl 6.3(L) 6.5 - 8.5 g/dL [facility] Albumin 3.8 3.5 - 5.0 g/dL [facility] Alk phos 63 40 - 130 Units/L [facility] ALT 18 7 - 55 Units/L [facility] AST 20 10 - 50 Units/L [facility] Blood 06/22/2024 7:20 AM TELEGRAPH REPEATER TECHNICIAN 06/22/2024 8:12 AM TELEGRAPH REPEATER TECHNICIAN Hermelindo Butler MD LAB BLOOD ORDER ELANA Final Result [facility] [place] [address] * Hepatitis C antibody (10/16/2021 9:50 AM CDT) Hep C Ab Nonreactive Nonreactive MT [facility] Comment:Antibodies to HCV no t detected. Does NOT exclude the possibility of recent exposure to HCV. Blood 10/16/2021 9:50 AM CDT 10/16/2021 11:22 AM CDT Hermelindo dupree MD LAB MICROBIOLOGY - GENERAL ORDERABLES Edited Result - Final [facility] [place] [address] from Last 3 Months or Most Recently Relevant to Health Maintenance Insurance MEDICARE [facility] Address: [facility] [address] [place] [address] [employer] SENIOR SUPPLEMENT MEDICARE A[employer] [place] [address] MEDICARE [employer] SENIOR SUPPLEMENT Advance Directives For more information, please contact: [phone] Documents on File Type Date Recorded Patient Inspector And Hand Packager Expl anation ADVANCE DIRECTIVE 11/29/2017 11:05 AM [employer] SECRETARY ADVANCE DIRECTIVE 11/12/2017 3:59 PM POWER OF COMPANY SECRETARY * Full Code (Latest Code Status on [...] 9:21 AM 05/30/2021 1:44 PM Care Teams Income Tax Manager Relationship Specialty Start Date End Date Jatin Gamble MD [address] [place] [address] PCP - General 10/07/16 Hermelindo Butler MD [address] [place] [address] Medical Oncologist/Hematologi Medical Oncology 12/02/17 Roberto Rojo MD [facility] [address] [place] [address] Medical Oncologist/Hematologi Hematology and Oncology 12/02/17 Jatin Gamble MD [address] [place] [address] Referring Physician Internal Medicine 12/02/17 Lyndsey Fagan NP [address] [place] [address] Nurse Practitioner Medical Oncology 08/03/20 Erlin Servin MD [address] [place] [address] Consulting Physician Otolaryngology 10/04/22 [place] [address] [place] [address] Consulting Physician Urology 05/28/23
--- OUTSIDE RECORDS SUMMARY | 2024-09-09 17:11 | XMS_ITS ---
Author Organization [facility] Address [address] [place] [address] Care Team Providers Care Desktop Administrator Name Role Phone Jatin Gamble MD Primary Care Provider [phone] Hermelindo Butler MD Unavailable Roberto Rojo MD Unavailable [phone] Jatin Gamble MD Unavailable [phone] Lyndsey Fagan NP Unavailable [phone] Erlin Servin MD Unavailable [phone] Julian Valdez MD Unavailable Active Problems Patient Care Coordination No te Formatting of this note is d ifferent from the original. BMT Inpatient Care Coordination Overview Diagnosis [place] Floor [address] Treatment Plan Clinical Trial [id number] [facility] Reason for Admission JOHN Transplant/IEC Planning BMT/IEC [...] Medical Assistants Post-Discharge Follow-Up Living Situation/Distance from [facility] (45 min) Caregiver Self, Lab/Transfusion Frequency Phone: Fax: Venous Access & Care implanted vascular device Local Oncologist Contact Phone: Fax: Post-Discharge Office Visit (H30) [facility] [place] Miscellaneous Notes: Problem Noted Date Diagnosed [...] is a risk of orbital injury and FACULTY PHYSICIAN injury which could result in blindness or [...] this. Assessment & Plan (07/09/2022 7:42 PM LAND SURVEYING SURVEY WORKER): I talked with him quite a [...] weeks. Assessment & Plan (05/26/2022 4:16 PM LAND SURVEYING SURVEY WORKER): He does have pretty significant sinusitis [...] day. Assessment & Plan (05/26/2022 4:17 PM LAND SURVEYING SURVEY WORKER): It is very possible that his cough could be due to sinusitis also. Hopefully that will continue to improve as we treat. He understands. Immunocompromised 11/13/2021 Multiple myeloma not having achieved remission 0 10/28/2021 Cancer Staging:Clinical stage from 10/16/2021:RISS Stage II(Jdim-1-qwnlrpjgjjcwl (mg/L): 3.7, Albumin (g/dL): 4.2, ISS: Stage [...] and Dexamethasone in June 2021 Clinical trial [id number] initiated on 10/29/21; C46D1 08/03/24. BMT following [...] he got a TTE on 10/19 at [place] however unclear why not currently in the system - May need to repeat TTE prior to treatment if results unavailable - Continue OI ppx with acyclovir 400mg BID - Begin trial [id number], a Bispecific Antibody Targeting BCMA treatment - [...] he got a TTE on 10/19 at [place] however unclear why not currently in the system - May need to repeat TTE prior to treatment if results unavailable - Continue OI ppx with acyclovir 400mg BID - Begin trial [id number], a Bispecific Antibody Targeting BCMA treatment - [...] BID Assessment & Plan (05/31/2021 10:51 AM LAND SURVEYING SURVEY WORKER): Continue home pepcid, asx Renal mass 05/30/2021 Assessment & Plan (05/31/2021 10:51 AM LAND SURVEYING SURVEY WORKER): Admitted for observation after L renal [...] 07/17/2023 Assessment & Plan (05/31/2021 10:52 AM LAND SURVEYING SURVEY WORKER): Follows with oncology on daratumumab monotherapy [...] blood in urine Follow up pathology from otbelcpmd-pvi-kxanhkva high-grade papillary urothelial carcinoma (grade 2) --follow [...] blood in urine Follow up pathology from auxoobnss-ipn-iouhnomi high-grade papillary urothelial carcinoma (grade 2) --follow [...] supplementation Assessment & Plan (05/31/2021 10:51 AM LAND SURVEYING SURVEY WORKER): Stable on home losartan, nebivolol, triamterene-HCTZ 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/23/2013 Current Treatment and Therapy Plans - INPT/OUTPT - [facility] - MM - [id number] - Arm B - Dose Expansion Phase - TNB-383B Monotherapy* Plan Start Date:10/29/2021 Plan Provider:Hermelindo Butler MD Linked Problems Multiple myeloma in relapse (HCC) Treatment Medications Current Day (Day 1 , Cycle 48 - Planned for 09/21/2024) Next Day (Day 1, Cycle 49 - Planned for 10/12/2024) INV-[facility] (/TNB-383B.0001) Etentamig (TNB-383B/ABBV-383) IVPB in 50 mL (ANTI-LAG-3)INV-[facility] Etentamig (TNB-383B/ABBV-383) (/TNB-383B.2024)INV -[facility] sodium chloride 0.9 % INV-[facility] Etentamig (TNB-383B/ABBV-383) (IVSS-FREE FORMULATION) (/TNB-383B.2024) 40 mg in sodium chloride 0.9% 30 mL IVPBINV-[facility]M_[facility] sodium chloride 0.9 % flush IVPB 20 mL INV-[facility] Etentamig (TNB-383B/ABBV-383) (IVSS-FREE FORMULATION) (/TNB-383B.2024) 40 mg in sodium chloride 0.9% 30 [...] 10% (TORRES PREFERRED)* Plan Start Date:01/03/2023 Plan Provider:Hemrelindo Butler MD Linked Problems HypogammaglobulinemiaMultipl e myeloma [...]
--- OUTSIDE RECORDS SUMMARY | 2024-09-09 17:21 | XMS_ITS | Continuity of Care Document ---
Author Organization [facility] [facility] Address [address] [facility] [address] [place] [address] Phone Care Team Providers Care Tablet Tester Name Role Phone Cesar Vora MD, FACS [...] ER 100 mg tablet,extended release - Active [place] 5 mg-325 mg tablet [...] Copied on Encounter Office/outpa tient Visit, [facility], [address] [place] [address] [address], [place], [place], [id number], [place] tel:[phone] SEC [place] Eyelid infections (chief complaint) Episcleritis of left eyeOther vitreous opacities, bilateralOth er visual disturbances 2 Vielka Cesar. [address] [facility], [address], [place], [place], [id number], [place]. tel:[phone] Specialist: Hermelindo Lopez MD, [address] [facility] [address], [place], [address]. tel:[phone] Provider: Vicky Ray OD, [address] [facility], [place], [address]. tel:[phone] [facility], [address], [place], [place], [address], [place] tel:[phone] SEC [place] Professional yag pc OS evaluation (chief complaint) Bilateral artificial lens implantOther secondary cataract, left eyeCyst of right eyelidPVD (posterior vitreous detachment), left eyeBilateral ocular hypertension Oct-1 8 Jose R Franco. [address] [facility], [address], [place], [place], [address], [place]. tel:[phone] Referring Provider: Michele Orellana OD A, [address] [place] [address] [facility], [place], [address]. tel:[phone] [facility] HospitalComputer Software Innovations [facility] HospitalQ[facility], [address] [place], [place] [address], [place], [place], [address], [place] tel:[phone] SEC Steven Sifuentes Yag PC Eval (chief complaint) No Information 7 Vielka Cesar. [address] [place], [place] [address]ACE, [address], [place], [place], [address], [place]. tel:[phone] Referring Provider: Michele Orellana OD A, [address] [place] [address], [place], [address]. tel:[phone] [employer] [facility] HospitalStudent Designed [facility], [address], [place], [place], [address], [place] tel:[phone] SEC Bryson Petrona Coybienvenidorosalio No Information 7 Buford Cesar. [facility] [address], [address], [place], [place], [address], [place]. tel:[phone] [employer] [facility], [facility] [address], [place], [place], [address], [place] tel:[phone] [facility] No Information 5 Vielka Cesar. [facility] [address], [address], [place], [place], [address], [place]. tel:[phone] Referring Provider: Michele Orellana OD A, [address] [place] [address], [place], [address]. tel:[phone] [facility] [facility] HospitalStudent Designed [facility], [address] [place] [address] [address], [place], [place], [address], [place] tel:[phone] SEC Steven N Bear No Information 5 Vielka Guerrero. [address] [facility], [address], [place], [place], [address], [place]. tel:[phone] Referring Provider: Michele Acevedo, [address] [facility], [place], [address]. tel:[phone] [facility], [address] [place] [address] [address], [place], [place], [address], [place] tel:[phone] [facility] No Information 5 Vielka Guerrero. [facility] [address] [employer] [facility], [address], [place], [place], [address], [place]. tel:[phone] Referring Provider: Michele Acevedo, [address] [facility], [place], [address]. tel:[phone] [facility], [address] [place] [address] [address], [place], [place], [address], [place] tel:[phone] SEC Bryson N Bear Cataract Evaluation (chief complaint) No Information 5 Vielka Guerrero. [address] [place] [address] [address] [facility], [address], [place], [place], [address], [place]. tel:[phone] Referring Provider: Michele Acevedo, [address] [place], [address]. tel:[phone] Family History Family Member Type Diagnosis Age At Onset Mother Problem (finding) diabetes melli tus in first degree relative Mother Problem (finding) glaucoma Payers Payer name Insurance type Covered democrat ID Authoriza tion(s) [place] MB [id number] Aetna Mdcr Supp CI [id number] Social History Type Description Quantity Date Captured [...]
--- NOTE | 2024-09-09 17:31 | ECG_ITS ---
Test Date: 2024-09-09 17:52:34 Measurements Intervals [place] Rate: 104 P: 39 LA: 149 QRS: -22 QRSD: 106 T: 29 QT: 323 QTc: 425 Interpretive Statements SINUS TACHYCARDIA INCOMPLETE RIGHT BUNDLE BRANCH BLOCK BORDERLINE ECG No previous ECG available for comparison Electronically Signed On 09-09-2024 19:10:54 CDT by Porfirio Mendoza D.O.
[2024-09-09 17:57] LABS: Basophils Absolute Auto 0.02 K/mm3 (0.00-0.10); Basophils Percent Auto 0.2 % (0.0-1.0); Eosinophils Absolute Auto 0.04 K/mm3 (0.02-0.50); Eosinophils Percent Auto 0.3 % (1.0-6.0); Hematocrit 39.2 % (37.0-46.0); Hemoglobin 12.8 g/dL (12.4-15.3); Immature Granulocyte Absolute 0.06 K/mm3 (0.00-0.00); Immature Granulocyte Percent A 0.5 % (0.0-0.0); Lymphocytes Absolute Auto 0.34 K/mm3 (1.10-4.50); Lymphocytes Percent Auto 2.7 % (18.0-42.0); Mean Corpuscular HGB Conc 32.7 g/dL (32-36); Mean Corpuscular Hemoglobin 31.3 pg (27.0-31.0); Mean Corpuscular Volume 95.8 fL (78.0-102.0); Mean Platelet Volume 8.9 fl (8.7-11.0); Monocytes Percent Auto 7.3 % (2.0-11.0); Neutrophils Absolute Auto 11.04 K/mm3 (1.70-7.20); Platelet Count Result 164 K/mm3 (150-420); Red Blood Count 4.09 M/mm3 (4.70-6.10); Red Cell Distribution Width 15.7 % (11.6-14.4); White Blood Count 12.4 K/mm3 (4.8-10.8)
[2024-09-09 18:09] LABS: Lactic Acid Reflex 1.3 mmol/L (0.4-2.0); Partial Thromboplastin Time 26.5 Sec (23.9-30.70); Prothrombin Time 10.9 Seconds (9.50-12.1)
[2024-09-09 18:13] LABS: Alanine Aminotransferase 25 U/L (16-63); Albumin Level 3.8 g/dL (3.4-5.0); Alkaline Phosphatase 82 U/L (46-116); Anion Gap 11 mmol/L (4-12); Aspartate Amino Transferase 11 U/L (15-37); Blood Urea Nitrogen 52 mg/dL (7-18); Calcium 9.4 mg/dL (8.5-10.1); Carbon Dioxide 28 mmol/L (21-32); Chloride 104 mmol/L (98-108); Estimated CRCL calculation 33 ml/min; Estimated Glomerular Filt Rate 26; Glucose 134 mg/dL (70-99); Lipase 15 U/L (16-77); NT Pro B Type Natriuretic Pept 742 pg/mL (0-125); Osmolality Calculated 312 mOsm/kg (285-295); Potassium 4.1 mmol/L (3.5-5.1); Sodium 143 mmol/L (136-145); Total Protein 6.6 g/dL (6.4-8.2)
[2024-09-09] MEDS: ACETAMINOPHEN 500 MG TABLET 1000 MG PO (18:23)
[2024-09-09] MEDS: SODIUM CHLORIDE 0.9% IV 1,000 ML 999 ML IV CONT (18:23)
[2024-09-09 18:30] LABS: Influenza A QL RT-PCR Negative (Negative); Influenza B QL RT-PCR Negative (Negative); RSV RNA, RT-PCR Negative (Negative); SARS-CoV-2 RNA PCR Negative (Negative)
[2024-09-09 18:33] LABS: Add Urine Microscopic? NO; Appearance Urine Clear (Clear); Bilirubin Urine Negative (Negative); Blood Urine Trace-intact (Negative); Color Urine Light Yellow (Yellow); Glucose Urine UA Negative (Negative); Ketones Urine Negative (Negative); Leukocyte Esterase Ur Negative LEU/UL (Negative); Nitrate Urine Negative (Negative); Protein Urine Negative (Negative); Urobilinogen Urine 0.2 mg/dL (0.2-1.0); pH Urine 5.5 (5.0-8.0)
--- NOTE | 2024-09-09 19:04 | PC.NURSE ---
On 09/09/24, the student, [TRISTAN TONG ], provided care and completed [facility] documentation on this patient. I have reviewed the student's documentation and agree with the findings.
--- NOTE | 2024-09-09 19:53 | ED.FEVER ---
HPI - Fever General Chief Complaint: Fever Stated Complaint: altered mental status and fever Source: patient and family Mode of arrival: wheelchair Limitations: altered mental status History of Present Illness HPI Narrative: this is a 73-year-old male with a history of bladder stones and BPH presents with some fever and altered mental status according to his . Patient has no hematuria no chest pain no shortness of breath no nausea vomiting no abdominal pain no diarrhea or constipation. Patient has a history of multiple myeloma and follows at the [facility], also sees Urology Dr. Neena griffin at [facility]. Onset (ago): day(s) Measured temperature: 100.8 C Exacerbating factors: nothing Relieving factors: nothing Associated symptoms: chills Related Data Home Medications ?Medication ?Instructions ?Recorded ?Confirmed ?Last Taken ?Type famotidine 20 mg PO BID 07/30/21 08/06/23 Unknown History hydrocodone-acetaminophen 10 - 325 mg PO Q6-8H PRN Pain 07/30/21 08/06/23 Unknown History losartan 25 mg PO DAILY 07/30/21 08/07/23 Unknown History nebivolol 10 mg tablet (Bystolic) 5 mg PO DAILY 07/30/21 08/06/23 Unknown History potassium chloride 10 mEq 10 meq PO DAILY 07/30/21 08/06/23 Unknown History tablet,extended release allopurinol 300 mg tablet 300 mg PO DAILY 07/05/23 08/06/23 Unknown History acyclovir 400 mg tablet 400 mg PO BID 08/06/23 08/06/23 Unknown History budesonide 0.5 mg/2 mL suspension 0.5 mg inhalation DAILY 08/06/23 08/06/23 Unknown History for nebulization ferrous sulfate 325 mg (65 mg 325 mg PO BID 08/06/23 08/06/23 Unknown History iron) tablet triamcinolone acetonide 0.5 % 1 applic topical BID 08/06/23 08/06/23 Unknown History topical cream triamterene 37.5 1 tablet PO DAILY 08/06/23 08/06/23 Unknown History mg-hydrochlorothiazide 25 mg tablet Allergies Allergy/AdvReac Type Severity Reaction Status Date / Time No Known Allergies Allergy Verified 08/06/23 16:16 Review of Systems Review of Systems: All systems reviewed & are unremarkable except as noted in HPI and below PMFSH Past Medical History Medical History Sinusitis Multiple myeloma Hypertension Surgical History Surgical History H/O sinus surgery Previous back surgery Social History Social History Smoking status: Never smoker Alcohol intake: never Substance use: never Do You Feel Safe in your Home?: Yes Lack of Transportation: No Lack of Food: Never True Current Housing: I Have Housing Concerned About Future Housing: No Difficulty Paying Gas/Electric Bills: No Difficulty Paying for Meds: No Currently Unemployed: No Education: Master's Degree or Higher Difficulty w/ Childcare or Family Care: No Spiritual care concerns: No Exam Const: General: no acute distress Nutritional Appearance: obese Orientation/consciousness: confusion Limitations: no limitations Eyes: Conjunctivae: conjunctivae normal Neck: Neck: normal visual inspection and no lymphadenopathy Chest: Chest palpation & inspection: normal inspection of the chest Resp: Effort & Inspection: normal respiratory effort Auscultation: clear to auscultation bilaterally Cardio: Rate: regular rate Rhythm: regular rhythm GI: GI Palp: Yes Soft to palpation Auscultation: normal bowel sounds : General: Yes bladder normal to palpation Urinary Catheter: Urinary Catheter: patent and draining Back/Spine/Pelvis: Back: no CVA tenderness Skin: General skin exam: normal color Neuro: General: patient oriented x3, moves all extremities, no meningeal signs and no focal motor deficits Extrem: General: normal to inspection, no clubbing, cyanosis or edema and no pedal edema Course CELL BIOLOGIST/PA Physician Supervision Patient had blood work reviewed and has a white count of 12.4 with urinalysis that shows just trace blood BNP of 742, lactic acid is 1.[address] scan of the brain which showed no acute abnormalities chest x-ray shows no acute cardiopulmonary abnormalities. Patient received Tylenol p.o. for a fever of 100.8, IV Levaquin and IV fluids. Patient had a CT scan of the abdomen and pelvis showed multiple bladder stones causing a cystitis with mild hydronephrosis. After speaking to the patient about transfer to see his urologist at [facility], patient wants to sign out against medical advice. mental status is back to his baseline according to his . I did clear that I have personally explained to the patient the risks and consequences valved in leaving this facility at this time. The benefits of continued treatment and our hospitalization. And the alternatives, if any. To continue treatment and our hospitalization. If applicable I have not identified any psychosis drugs mental illness are medical illness that alters decision-making capacity or reasoning ability. Patient Vital Signs Vital signs: Vital Signs Temperature 38.8 C H 09/09/24 16:55 Pulse Rate 110 H 09/09/24 16:55 Respiratory Rate 22 H 09/09/24 16:55 Blood Pressure 139/93 H 09/09/24 16:55 Pulse Oximetry 96 09/09/24 16:55 Oxygen Delivery Room Air 09/09/24 16:55 Temperature 37.6 C H 09/09/24 19:17 Pulse Rate 110 H 09/09/24 16:55 Respiratory Rate 22 H 09/09/24 16:55 Blood Pressure 139/93 H 09/09/24 16:55 Pulse Oximetry 96 09/09/24 16:55 Oxygen Delivery Room Air 09/09/24 16:55 MDM - Fever Lab Data 09/09/24 17:44 09/09/24 17:44 Labs: Lab Results 09/09/24 09/09/24 Range/Units 17:44 18:28 WBC 12.4 H (4.8-10.8) K/mm3 RBC 4.09 L (4.70-6.10) M/mm3 Hgb 12.8 (12.4-15.3) g/dL Hct 39.2 (37.0-46.0) % MCV 95.8 (78.0-102.0) fL MCH 31.3 H (27.0-31.0) pg MCHC 32.7 (32-36) g/dL RDW 15.7 H (11.6-14.4) % Plt Count 164 (150-420) K/mm3 MPV 8.9 (8.7-11.0) fl Immature Gran % (Auto) 0.5 H (0.0-0.0) % Neut % (Auto) 89.0 H (50.0-70.0) % Lymph % (Auto) 2.7 L (18.0-42.0) % Brooke % (Auto) 7.3 (2.0-11.0) % Eos % (Auto) 0.3 L (1.0-6.0) % Baso % (Auto) 0.2 (0.0-1.0) % Lymph # (Auto) 0.34 L (1.10-4.50) K/mm3 Brooke # (Auto) 0.90 (0.10-0.90) K/mm3 Eos # (Auto) 0.04 (0.02-0.50) K/mm3 Baso # (Auto) 0.02 (0.00-0.10) K/mm3 Abs Immat Gran (auto) 0.06 H (0.00-0.00) K/mm3 Absolute Neuts (auto) 11.04 H (1.70-7.20) K/mm3 Absolute Nucleated RBC 0.00 (0.00-0.00) K/mm3 Nucleated RBC % 0.0 (0-0.0) % PT 10.9 (9.50-12.1) Seconds INR 1.0 APTT 26.5 (23.9-30.70) Sec Sodium 143 (136-145) mmol/L Potassium 4.1 (3.5-5.1) mmol/L Chloride 104 (98-108) mmol/L Carbon Dioxide 28 (21-32) mmol/L Anion Gap 11 (4-12) mmol/L BUN 52 H (7-18) mg/dL Creatinine 2.50 H (0.70-1.30) mg/dL Estim Creat Clear Calc 33 ml/min Estimated GFR 26 L (59 - ) Glucose 134 H (70-99) mg/dL Calculated Osmolality 312 H (285-295) mOsm/kg Lactic Acid 1.3 (0.4-2.0) mmol/L Calcium 9.4 (8.5-10.1) mg/dL Total Bilirubin 1.0 (0.00-1.00) mg/dL AST 11 L (15-37) U/L ALT 25 (16-63) U/L Alkaline Phosphatase 82 (46-116) U/L NT-Pro-B Natriuret Pep 742 H (0-125) pg/mL Total Protein 6.6 (6.4-8.2) g/dL Albumin 3.8 (3.4-5.0) g/dL Lipase 15 L (16-77) U/L Urine Color Light yellow (Yellow) Urine Appearance Clear (Clear) Urine pH 5.5 (5.0-8.0) Ur Specific [place] 1.010 (1.010-1.020) Urine Protein Negative (Negative) Urine Glucose (UA) Negative (Negative) Urine Ketones Negative (Negative) Ur Blood (Man) Trace-intact H (Negative) Urine Nitrate Negative (Negative) Urine Bilirubin Negative (Negative) Urine Urobilinogen 0.2 (0.2-1.0) mg/dL Leukocyte Esterase Rfl Negative (Negative) SIDRA/UL Influenza A (RT-PCR) Negative (Negative) Influenza B (RT-PCR) Negative (Negative) RSV (RT-PCR) Negative (Negative) SARS-CoV-2 RNA (RT-PCR) Negative (Negative) Critical Care Time Critical Care Time Critical Care Time: No Discharge Plan Discharge Clinical Impression: Bladder calculi Multiple myeloma Qualifiers: Multiple myeloma remission status: unspecified Qualified Code(s): C90.00 - Multiple myeloma not having achieved remission Urinary tract infection Qualifiers: Urinary tract infection type: acute cystitis Hematuria presence: without hematuria Qualified Code(s): N30.00 - Acute cystitis without hematuria Chronic kidney disease (CKD) Qualifiers: Chronic kidney disease stage: unspecified stage Qualified Code(s): N18.9 - Chronic kidney disease, unspecified Patient Disposition: Left Against Medical Advice Condition: Stable Instructions: Chronic Kidney Disease (ED), Fever in Adults (ED), Urinary Tract Infection in Older Adults (ED) Additional Instructions: continue Arriaza catheter, follow with urologist within the next 2 to 3 days further evaluation and treatment take medication as prescribed. Patient Language: Danish Prescriptions: New levofloxacin 500 mg tablet 500 mg PO DAILY Qty: 7 0RF No Action allopurinol 300 mg tablet 300 mg PO DAILY triamcinolone acetonide 0.5 % cream 1 applic TOPICAL BID acyclovir 400 mg Tablet 400 mg PO BID ferrous sulfate 325 mg (65 mg iron) Tablet 325 mg PO BID triamterene-hydrochlorothiazid 37.5-25 mg tablet 1 tablet PO DAILY Rx Instructions: 1 tab daily alternating with 1/2 tab daily budesonide 0.5 mg/2 mL Suspension For Nebulization 0.5 mg INHALATION DAILY diphenoxylate-atropine 2.5-0.025 mg Tablet 1 tablet PO Q2H PRN (Reason: Diarrhea) Qty: 12 0RF amoxicillin-pot clavulanate 875-125 mg tablet 1 tablet PO Q12H Qty: 14 0RF potassium chloride 10 mEq tablet extended release 10 meq PO DAILY nebivolol [Bystolic] 10 mg tablet 5 mg PO DAILY famotidine 20 mg PO BID hydrocodone-acetaminophen 10 - 325 mg PO Q6-8H PRN (Reason: Pain) Rx Instructions: 1/2 tablet losartan 25 mg PO DAILY Follow-up/Referrals: Jatin Gamble MD [Primary Care Provider] -
[2024-09-09] MEDS: levoFLOXacin 500 MG/D5W 100 ML 500 MG/100 ML BAG 100 MG IVPB (20:12)
--- NOTE | 2024-09-09 21:35 | PC.NURSE ---
Pt requesting to leave AMA. Per ERP, catheter will be left in place and patient has been instructed to follow up with his urologist tomorrow morning.
--- NOTE | 2024-09-10 19:07 | PC.NURSE ---
Preliminary blood cultures show gram positive cocci in pairs. PER ERP patient needs to return to hospital. RN spoke with and patient who understands need to return to hospital
== END 2024-09-09 21:55 | disposition left against medical advice (07) ==
PROVIDERS: Emergency Provider Emergency Medicine; PCP Internal Medicine
DX: C90.00 Multiple myeloma not having achieved remission (principal); N30.00 Acute cystitis without hematuria; I12.9 Hypertensive chronic kidney disease with stage 1 through stage 4 chronic kidney disease, or unspecified chronic kidney disease; N18.9 Chronic kidney disease, unspecified; N21.0 Calculus in bladder; I10 Essential (primary) hypertension; Z20.822 Contact with and (suspected) exposure to COVID-19
CPT/HCPCS: 36415; 70450; 71046; 74176; 80053; 81003; 83605; 83690; 83880; 85025; 85610; 85730; 87040; 87181; 87637; 93005; 96361; 96365; 99284; A9270; J1642; J1956; J7030

== ENCOUNTER 2024-09-10 19:51 | Emergency (ER) | payer MEDICARE, SELFPAY ==
--- NOTE | ~2024-09-10 | XR_ITS ---
CHEST RADIOGRAPH CLINICAL HISTORY: sepsis. UNWELL FEELING X 3-4 DAYS. . COMPARISON: 09/09/2024 TECHNIQUE: Single portable view of the chest. FINDINGS Right internal jugular central venous port catheter identified with its tip projecting over the cavoa trial junction. The remainder of the cardiomediastinal silhouette is otherwise unremarkable. The lungs are clear. IMPRESSION: No focal infiltrate or effusion. Reviewed, dictated and finalized at location A.
--- NOTE | ~2024-09-10 | CT_ITS ---
CLINICAL INDICATION: Personal history of multiple myeloma presents following positive blood cultures performed 09/09/2024 and leukocytosis COMPARISON: 09/09/2024 and dating back to 07/11/2022. TECHNIQUE: Multiple contiguous axial images of the abdomen and pelvis were performed without the admi nistration of intravenous contrast The dose-length product (DLP) was 1487.75 mGy-cm. Automated exposure control and iterative reconstruction technique were employed. FINDINGS/OBSERVATIONS: Visualized lower thorax: The bilateral lung bases are clear. The heart is of normal size, with a small pericardial effusion (an interval change from previous days examination). Small hiatal hernia is present. Liver: The liver demonstrates homogeneously decreased attenuation and is not enlarged. Gallbladder and biliary system: The gallbladder is only minimally distended, and demonstrates innumerable calcifications, unchanged f rom prior. Pancreas: Limited evaluation of the pancreas secondary to the lack of intravenous contrast. Spleen: The spleen demonstrates homogeneous attenuation and is enlarged measuring 15 cm in longitudinal dimen nhung. Kidneys: Redemonstration of large well-circumscribed rounded areas of decreased attenuation within the bilater al kidneys. The largest on the right measures 9.5 x 8.8 x 8.4 cm (anterior to posterior x medial to lateral x aircraft power plant assembler nial to caudal dimension). The largest on the left measures 5.9 x 5.7 x 4.9 cm (anterior to posterior x medial to lateral x cran ial to caudal dimension). Interval development of mild bilateral hydroureteronephrosis, likely secondary to obstruction from bl adder calculi. Adrenal glands: 18 x 12 mm fat-containing right adrenal mass, unchanged dating back to 07/11/2022 The left adrenal gland is unremarkable. Gastrointestinal tract: Trace colonic diverticulosis without surrounding inflammatory change. Appendix: The air-filled appendix is of normal caliber (axial series, images 114 through 120) Vasculature: Trace calcified atherosclerotic disease without aneurysmal dilatation Lymph nodes: Limited evaluation without intravenous contrast. Pelvic structures: Redemonstration of multiple stones within the bladder, both are likely obstructing. Within the right UVJ is a 18 x 24 x 27 mm calculus. Within the left ureterovesicular junction, there are 2 calculi, the largest measuring 17 x 24 x 25 mm . The wall of the bladder is thickened. The prostate gland is minimally enlarged and contains multiple calcifications. Body wall and musculoskeletal: Redemonstration of multiple areas of decreased attenuation within the bilateral femurs and pelvis, co nsistent with patient's primary malignancy. IMPRESSION: Interval development of a small pericardial effusion. Redemonstration of multiple stones within the bladder with bilateral hydroureteronephrosis increased from previous examination. Cholelithiasis without evidence of cholecystitis. Multiple osseous lesions within the pelvis consistent with patient's history. Splenomegaly. Fatty infiltration of the liver. Reviewed, dictated and finalized at location A. IMPRESSION: Interval development of a small pericardial effusion. Redemonstration of multiple stones within the bladder with bilateral hydrourete ronephrosis increased from previous examination. Cholelithiasis without evidence of cholecystitis. Multiple osseous lesions within the pelvis consistent with patient's history. Splenomegaly. Fatty infiltration of the liver.
--- OUTSIDE RECORDS SUMMARY | 2024-09-10 19:54 | XMS_ITS | Encounter Summary ---
Author Organization [facility] Healthcare Address [address] [place] [address] Care Team Providers Care Operator Vacuum Name Role Phone Jatin Gamble MD Primary Care Provider Hermelindo Butler MD Unavailable Roberto Rojo MD Unavailable [phone] Jatin Gamble MD Unavailable [phone] Garry Dukes MD Unavailable Lyndsey Fagan NP Unavailable Erlin Servin MD Unavailable [phone] Julian Valdez MD Unavailable Encounter Details Date Type Department Care Team (Late st Contact Info) Description 11/22/2021 Documentation [facility] Case Management [address] [place] [address] Forrest Epstein, RN Social History Tobacco Use Types Packs/Day Years Used Date Smoking Tobacco: Never Smokeless Tobacco: Never Alcohol Use Standard Drinks/Week Comments No 0 (1 standard drink = 0.6 oz pur e alcohol) Sex and Gender Information Value Date Recorded Sex Assigned at Not on file 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 Gender Identity Not on file Sexual Orientation [...] documented as of this encounter Care Teams Operator Vacuum Relationship Specialty Start Date End Date Jatin Gamble MD [address] [place] [address] PCP - General 10/07/16 Hermelindo Butler MD [address] [place] [address] [facility] 12/02/17 Roberto Rojo MD [address] [place] [id number] [facility]cology 12/02/17 Jatin Gamble MD [address] [place] [address] Referring Physician Internal Medicine 12/02/17 Garry Dukes MD [address] [place], [place] [id number] Referring Physician Urology 12/02/17 05/27/23 Lyndsey Fagan NP [address] [place], [place] [id number] Nurse Practitioner Medical Oncology 08/03/20 Erlin Servin MD [address] [place] [address] Consulting Physician Otolaryngology 10/04/22 [place] [address] [place] [address] Consulting Physician Urology 05/28/23 documented as of this encounter
--- OUTSIDE RECORDS SUMMARY | 2024-09-10 19:54 | XMS_ITS ---
Author Organization [facility] Address [address] [place] [address] Care Team Providers Care Associate Teacher Name Role Phone Jatin Gamble MD Primary Care Provider [phone] Hermelindo Butler MD Unavailable Roberto Rojo MD Unavailable [phone] Jatin Gamble MD Unavailable [phone] Lyndsey Fagan NP Unavailable [phone] Erlin Servin MD Unavailable [phone] Julian Valdez MD Unavailable Active Problems Patient Care Coordination No te Formatting of this note is d ifferent from the original. BMT Inpatient Care Coordination Overview Diagnosis [place] Floor [address] Treatment Plan Clinical Trial [id number] [facility] Reason for Admission JOHN Transplant/IEC Planning BMT/IEC [...] Medical Assistants Post-Discharge Follow-Up Living Situation/Distance from [facility] (45 min) Caregiver Self, Lab/Transfusion Frequency Phone: Fax: Venous Access & Care implanted vascular device Local Oncologist Contact Phone: Fax: Post-Discharge Office Visit (H30) [facility] 08/31 Miscellaneous Notes: Problem Noted Date Diagnosed [...] is a risk of orbital injury and RUG DYER HELPER injury which could result in blindness or [...] this. Assessment & Plan (07/09/2022 7:42 PM BLOCKER AND SEWER): I talked with him quite a bit [...] weeks. Assessment & Plan (05/26/2022 4:16 PM BLOCKER AND SEWER): He does have pretty significant sinusitis and [...] day. Assessment & Plan (05/26/2022 4:17 PM BLOCKER AND SEWER): It is very possible that his cough could be due to sinusitis also. Hopefully that will continue to improve as we treat. He understands. Immunocompromised 11/13/2021 Multiple myeloma not having achieved remission 0 10/28/2021 Cancer Staging:Clinical stage from 10/16/2021:RISS Stage II(Opya-6-cpopbaoxgyowq (mg/L): 3.7, Albumin (g/dL): 4.2, ISS: Stage [...] and Dexamethasone in June 2021 Clinical trial [id number] initiated on 10/29/21; C46D1 08/03/24. BMT following [...] he got a TTE on 10/19 at [facility] however unclear why not currently in the system - May need to repeat TTE prior to treatment if results unavailable - Continue OI ppx with acyclovir 400mg BID - Begin trial [id number], a Bispecific Antibody Targeting BCMA treatment - [...] he got a TTE on 10/19 at [facility] however unclear why not currently in the system - May need to repeat TTE prior to treatment if results unavailable - Continue OI ppx with acyclovir 400mg BID - Begin trial [id number], a Bispecific Antibody Targeting BCMA treatment - [...] BID Assessment & Plan (05/31/2021 10:51 AM BLOCKER AND SEWER): Continue home pepcid, asx Renal mass 05/30/2021 Assessment & Plan (05/31/2021 10:51 AM BLOCKER AND SEWER): Admitted for observation after L renal mass [...] 07/17/2023 Assessment & Plan (05/31/2021 10:52 AM BLOCKER AND SEWER): Follows with oncology on daratumumab monotherapy -counts [...] blood in urine Follow up pathology from [id number] high-grade papillary urothelial carcinoma (grade 2) --follow [...] blood in urine Follow up pathology from [id number]-[id number] high-grade papillary urothelial carcinoma (grade 2) --follow [...] supplementation Assessment & Plan (05/31/2021 10:51 AM BLOCKER AND SEWER): Stable on home losartan, nebivolol, triamterene-HCTZ 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
--- OUTSIDE RECORDS SUMMARY | 2024-09-10 19:54 | XMS_ITS | Clinical Summary ---
Author Organization [facility] Address [address] [place] [address] Care Team Providers Care Outside Sales Representative Insurance Name Role Phone Unavailable Primary Care Provider [...] Vaccine ( - 2023-2 5 season) 2024 RSV Immunization or 60+ Years (1 [...]
--- OUTSIDE RECORDS SUMMARY | 2024-09-10 19:54 | XMS_ITS | Encounter Summary ---
Author Organization [facility] Address [address] [place] [address] Phone Care Team Providers Care Building Serviceman Name Role Phone Jatin Gamble MD Primary Care Provider [phone] Hermelindo Butler MD Unavailable Roberto Rojo MD Unavailable Jatin Gamble MD Unavailable [phone] Lyndsey Fagan NP Unavailable [phone] Erlin Servin MD Unavailable Julian Valdez MD Unavailable Encounter Details Date Type Department Care Team (Late st Contact Info) Description 09/06/2024 Orders Only [facility] Bone Marrow Transplant [address] [place] [address] Lyndsey Fagan NP [address] DIV BONE MARROW TRANSPLANT, [address] [place], [place] [id number] Social History Tobacco Use Types Packs/Day Years [...] on file 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 Gender Identity Not on file Sexual Orientation Not on file documented as of this encounter Plan of Treatment Not on file documented as of this encounter Visit Diagnoses Not on filedocumented in this encounter Care Teams Building Serviceman Relationship Specialty Start Date End Date Jatin Gamble MD [address] [place] [address] PCP - General 10/07/16 Hermelindo Butler MD [address] [place] [address] [facility] 12/02/17 Roberto Rojo MD [address] [place] [address] [facility]cology 12/02/17 Jatin Gmable MD [address] [place] [address] Referring Physician Internal Medicine 12/02/17 Lyndsey Fagan NP [address] [place] [address] Nurse Practitioner Medical Oncology 08/03/20 Erlin Servin MD [address] [place] [address] Consulting Physician Otolaryngology 10/04/22 [place] [address] [place] [address] Consulting Physician Urology 05/28/23 documented as of this encounter
--- OUTSIDE RECORDS SUMMARY | 2024-09-10 19:54 | XMS_ITS | Encounter Summary ---
Author Organization [facility] Healthcare Address [address] [place] [address] Care Team Providers Care Pig Handler Name Role Phone Jatin Gamble MD Primary Care Provider Hermelindo Butler MD Unavailable Roberto Rojo MD Unavailable [phone] Jatin Gamble MD Unavailable [phone] Lyndsey Fagan NP Unavailable [phone] Erlin Servin MD Unavailable [phone] Julian Valdez MD Unavailable Encounter Details Date Type Department Care Team (Late st Contact Info) Description 09/10/2024 [place] [address] [place] [address] Elevated prostate specific antigen (PSA) (Primary Dx) [...] on file 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 Gender Identity Not on file Sexual Orientation Not on file documented as of this encounter Plan of Treatment Not on file documented as of this encounter Visit Diagnoses Diagnosis Elevated prostate specific antigen (PSA)- Primary documented in this encounter Care Teams Pig Handler Relationship Specialty Start Date End Date Jatin Gamble MD [address] [place] [address] PCP - General 10/07/16 Hermelindo Butler MD [address] [place] [address] [facility] 12/02/17 Roberto Rojo MD [address] [place] [address] [facility] 12/02/17 Jatin Gamble MD [address] [place] [address] Referring Physician Internal Medicine 12/02/17 Lyndsey Fagan NP [address] [place] [address] Nurse Practitioner Medical Oncology 08/03/20 Erlin Servin MD [address] [place] [address] Consulting Physician Otolaryngology 10/04/22 [place] [address] [place] [address] Consulting Physician Urology 05/28/23 documented as of this encounter
--- OUTSIDE RECORDS SUMMARY | 2024-09-10 19:54 | XMS_ITS | Encounter Summary ---
Author Organization [facility] Address [address] [place] [address] Phone Care Team Providers Care Square Cutter Name Role Phone Jatin Gamble MD Primary Care Provider Hermelindo Butler MD Unavailable Roberto Rojo MD Unavailable [phone] Jatin Gamble MD Unavailable Lyndsey Fagan NP Unavailable Erlin Servin MD Unavailable [phone] Julian Valdez MD Unavailable [phone] Encounter Details Date Type Department Care Team (Late st Contact Info) Description 09/07/2024 Orders Only 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 Gender Identity Not on file Sexual Orientation Not on file documented as of this encounter Plan of Treatment Not on file documented as of this encounter Visit Diagnoses Not on filedocumented in this encounter Care Teams Square Cutter Relationship Specialty Start Date End Date Jatin Gamble MD [address] [place] [address] PCP - General 10/07/16 Hermelindo Butler MD [address] [place] [address] Medical On[facility] Medical Oncology 12/02/17 Roberto Rojo MD [address] [place] [address] Medical Oncologist/[facility] Hematology and Oncology 12/02/17 Jatin Gamble MD [address] [place] [address] Referring Physician Internal Medicine 12/02/17 Lyndsey Fagan NP [address] [place] [address] Nurse Practitioner Medical Oncology 08/03/20 Erlin Servin MD [address] [place] [address] Consulting Physician Otolaryngology 10/04/22 [place] [address] [place] [address] Consulting Physician Urology 05/28/23 documented as of this encounter
--- OUTSIDE RECORDS SUMMARY | 2024-09-10 19:54 | XMS_ITS | Continuity of Care Document ---
Author Organization [employer] Address [address] [facility] [address] [place] [address] Phone Care Team Providers Care Railroad Hand Name Role Phone Cesar Vora MD, FACS [...] ER 100 mg tablet,extended release - Active [place] 5 mg-325 mg tablet take 1 tablet [...] on Encounter Office/outpa tient Visit, New [facility], [address] [place] [address] [address], [place], [place], [id number], [place] tel:[phone] SEC Reader [place] Eyelid infections (chief complaint) Episcleritis of left eyeOther vitreous opacities, bilateralOth er visual disturbances 2 Vielka Cesar. [address] [facility], [address], [place], [place], [address], [place]. tel:[phone] Specialist: Hermelindo Lopez MD, [address] [facility] [address], [place], [address]. tel:[phone] Provider: Vicky Ray OD, [address] [facility], [place], [address]. tel:[phone] [facility], [address], [place], [place], [address], [place] tel:[phone] SEC Cornel[place] Professional yag pc OS evaluation (chief complaint) Bilateral artificial lens implantOther secondary cataract, left eyeCyst of right eyelidPVD (posterior vitreous detachment), left eyeBilateral ocular hypertension Oct-1 8 Jose R Franco. [address] [facility], [address], [place], [place], [address], [place]. tel:[phone] Referring Provider: Michele Orellana OD A, [address] [place] [address] [facility], [place], [address]. tel:[phone] [facility], [address] [place], [place] [address], [place], [place], [address], [place] tel:[phone] SEC Steven Sifuentes Yag PC Eval (chief complaint) No Information 7 Vielka Cesar. [address] [place], [place] [address], [address], [place], [place], [address], [place]. tel:[phone] Referring Provider: Michele Orellana OD A, [address] [place] [address], [place], [address]. tel:[phone] [facility], [address], [place], [place], [address], [place] tel:[phone] SEC [place] Petrona Coybienvenidorosalio No Information 7 [place] Cesar. [facility] [employer], [address], [place], [place], [address], [place]. tel:[phone] [facility], [facility] pMediaNetwork [address], [place], [place], [address], [place] tel:[phone] [facility] No Information 5 Vielka Cesar. [facility] [employer], [address], [place], [place], [address], [place]. tel:[phone] Referring Provider: Michele Orellana OD A, [address] [place] [address], [place], [address]. tel:[phone] [facility], [address] [place] [address] [address], [place], [place], [address], [place] tel:[phone] SEC Steven N Bear No Information 5 Vielka Guerrero. [address] [facility], [address], [place], [place], [address], [place]. tel:[phone] Referring Provider: Michele Acevedo, [address] [facility], [place], [address]. tel:[phone] [facility], [address] [place] [address] [address], [place], [place], [address], [place] tel:[phone] [facility] No Information 5 Vielka Guerrero. [facility] [address] [facility], [address], [place], [place], [address], [place]. tel:[phone] Referring Provider: Michele Acevedo, [address] [facility], [place], [address]. tel:[phone] [facility], [address] [place] [address] [address], [place], [place], [address], [place] tel:[phone] SEC [place] [address] Cataract Evaluation (chief complaint) No Information 5 Vielka Guerrero. [address] [place] [address] [address] [facility], [address], [place], [place], [address], [place]. tel:[phone] Referring Provider: Michele Acevedo, [address] [place], [address]. tel:[phone] Family History Family Member Type Diagnosis Age At Onset Mother Problem (finding) diabetes melli tus in first degree relative Mother Problem (finding) glaucoma Payers Payer name Insurance type Covered democrat ID Authoriza tion(s) [place] [id number] [employer] Mdcr Supp CI [id number] Social History Type Description Quantity Date Captured [...]
--- OUTSIDE RECORDS SUMMARY | 2024-09-10 19:54 | XMS_ITS | Encounter Summary ---
Author Organization [facility] Address [address] [place] [address] Phone Care Team Providers Care Social Economist Name Role Phone Jatin Gamble MD Primary Care Provider [phone] Hermelindo Butler MD Unavailable Roberto Rojo MD Unavailable Jatin Gamble MD Unavailable Garry Dukes MD Unavailable [phone] Lyndsey Fagan NP Unavailable [phone] Erlin Servin MD Unavailable Julian Valdez MD Unavailable Encounter Details Date Type Department Care Team (Latest Contact Info) Description 10/16/2017 Orders Only [facility] CONVERSION Scanning, Provider Social History Tobacco Use Types Packs/Day Years Used Date Smoking Tobacco: Never Assessed Sex and Gender Information Value Date Recorded Sex Assigned at Not on file Legal 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 Gender Identity Not on file Sexual Orientation [...] documented as of this encounter Care Teams Social Economist Relationship Specialty Start Date End Date Jatin Gamble MD [address] [place] [address] PCP - General 10/07/16 Hermelindo Butler MD [address] [place] [address] [facility] 12/02/17 Roberto Rojo MD [address] [place] [address] [facility] Hemat[facility] and Oncology 12/02/17 Jatin Gamble MD [address] [place] [address] Referring Physician Internal Medicine 12/02/17 Garry Dukes MD [address] [place], [place] [id number] Referring Physician Urology 12/02/17 05/27/23 Lyndsey Fagan NP [address] [place] [address] Nurse Practitioner Medical Oncology 08/03/20 Erlin Servin MD [address] [place] [address] Consulting Physician Otolaryngology 10/04/22 [place] [address] [place] [address] Consulting Physician Urology 05/28/23 documented as of this encounter
--- OUTSIDE RECORDS SUMMARY | 2024-09-10 19:55 | XMS_ITS | Clinical Summary ---
Author Organization [facility] Address [address] [place] [address] Care Team Providers Care Advanced Practice Provider Name Role Phone Jatin Gamble MD Primary Care Provider [phone] Hermelindo Butler MD Unavailable Roberto Rojo MD Unavailable Jatin Gamble MD Unavailable Lyndsey Fagan NP Unavailable [phone] Erlin Servin MD Unavailable Julian Valdez MD [...] 60 g 3 08/03/19 25 025 Active Problems Patient Care Coordination No te Formatting of this note is d ifferent from the original. BMT Inpatient Care Coordination Overview Diagnosis [place] Floor [address] Treatment Plan Clinical Trial [id number] Ramesh Reason for Admission JOHN Transplant/IEC Planning [...] Medical Assistants Post-Discharge Follow-Up Living Situation/Distance from [place], [place] (45 min) Caregiver Self, Lab/Transfusion Frequency Phone: Fax: Venous Access & Care implanted vascular device Local Oncologist Contact Phone: Fax: Post-Discharge Office Visit (H30) [facility] 08/31 Miscellaneous Notes: [...] is a risk of orbital injury and LAMINATION BUILDER injury which could result in blindness or [...] this. Assessment & Plan (07/09/2022 7:42 PM ASSOCIATE [employer]): I talked with him quite a bit [...] weeks. Assessment & Plan (05/26/2022 4:16 PM ASSOCIATE [employer]): He does have pretty significant sinusitis and [...] day. Assessment & Plan (05/26/2022 4:17 PM ASSOCIATE [employer]): It is very possible that his cough could be due to sinusitis also. Hopefully that will continue to improve as we treat. He understands. Immunocompromised 11/13/2021 Multiple myeloma not having achieved remission 0 10/28/2021 Cancer Staging:Clinical stage from 10/16/2021:RISS Stage II(Mies-4-bdjgdshnokirl (mg/L): 3.7, Albumin (g/dL): 4.2, ISS: Stage [...] and Dexamethasone in June 2021 Clinical trial [id number] initiated on 10/29/21; C46D1 08/03/24. BMT following [...] he got a TTE on 10/19 at [place] however unclear why not currently in the system - May need to repeat TTE prior to treatment if results unavailable - Continue OI ppx with acyclovir 400mg BID - Begin trial [id number], a Bispecific Antibody Targeting BCMA treatment - [...] he got a TTE on 10/19 at [place] however unclear why not currently in the system - May need to repeat TTE prior to treatment if results unavailable - Continue OI ppx with acyclovir 400mg BID - Begin trial [id number], a Bispecific Antibody Targeting BCMA treatment - [...] BID Assessment & Plan (05/31/2021 10:51 AM ASSOCIATE [employer]): Continue home pepcid, asx Renal mass 05/30/2021 Assessment & Plan (05/31/2021 10:51 AM ASSOCIATE PROF[employer]): Admitted for observation after L renal mass [...] 07/17/2023 Assessment & Plan (05/31/2021 10:52 AM ASSOCIATE PROF[employer]): Follows with oncology on daratumumab monotherapy -counts [...] blood in urine Follow up pathology from rwckmquyf-yrv-iwvgjmwj high-grade papillary urothelial carcinoma (grade 2) --follow [...] blood in urine Follow up pathology from jettkzcmj-gla-shmmrysu high-grade papillary urothelial carcinoma (grade 2) --follow [...] supplementation Assessment & Plan (05/31/2021 10:51 AM ASSOCIATE PROF[employer]): Stable on home losartan, nebivolol, triamterene-HCTZ Secondary [...] Encounters Date Type Department Care Team Description 09/10/2024 Orders Only Urology Yesika Capone PA Elevated prostate specific antigen (PSA) (Primary Dx) 09/07/2024 Orders Only [facility] [address] [place] [phone] Hermelindo Hill MD 09/06/2024 Orders Only [facility] [address] [place] [address] Lyndsey Fagan NP 08/31/2024 10:[address] [facility] [place] - Infusion [address] [facility] 6 [place] [address] Multiple myeloma in relapse (HCC) (Primary Dx); Multiple myeloma in remission (HCC) 08/31/2024 9:00 AM CDT Office Visit [facility] [address] [place] [phone] Hermelindo Hill MD Multiple myeloma in relapse (HCC) (Primary Dx); Multiple myeloma in remission (HCC) 08/31/2024 8:45 AM CDT Clinical Support [facility] - Lab Collection [address] [facility] 6 [place] [address] Multiple myeloma in relapse (HCC); Multiple myeloma not having achieved remission (HCC); Multiple myeloma, remission status unspecified (HCC) 08/31/2024 8:15 AM CDT Clinical Support [facility] [address] [place] [address] Multiple myeloma not having achieved remission (HCC); Multiple myeloma in remission (HCC) 08/30/2024 Orders Only [facility] Scanning, Provider 08/27/2024 Documentation Nephrology Ani Anne LCSW 08/27/2024 Orders Only [facility] [address] [place] [address] Hermelindo Hill MD Multiple myeloma not having achieved remission (HCC) (Primary Dx); JOHN (acute kidney injury) 08/25/2024 6:50 AM CDT Ancillary Procedure [facility] IP 1 [facility] [address] [place] [address] 08/23/2024 11:13 PM CDT - 08/26/2024 4:50 PM CDT Hospital Encounter [address] [phone] Hermelindo Hill MD [place], Thabet J.M., MD JOHN (acute kidney injury) (Primary Dx) Discharge Disposition: Discharge to home or self care 08/23/2024 7:10 PM CDT - 08/23/2024 11:59 PM CDT Hospital Encounter [facility] [address] [place] [address] Discharge Disposition: Discharge to home or self care 08/23/2024 5:24 PM CDT - 08/23/2024 11:59 PM CDT Hospital Encounter [facility] [address] [place] [address] Hermelindo Hill MD Elevated serum creatinine (Primary Dx); Multiple myeloma, remission status unspecified (HCC) Discharge Disposition: Discharge to home or self care 08/23/2024 Orders Only [address] [phone] Hermelindo Hill MD 08/23/2024 Orders Only [facility] [address] [phone] Hermelindo Hill MD Multiple myeloma, remission status unspecified (HCC) (Primary Dx) 08/20/2024 Orders Only [facility] Scanning, Provider 08/10/2024 Orders Only [facility] Scanning, Provider 08/06/2024 1:45 PM [employer]OCIATE [employer] Clinical Support [facility] - Lab Collection [address] [address] 08/06/2024 1:00 PM [employer]IATE [employer] - 08/06/2024 11:59 PM [employer]IATE [employer] Hospital Encounter [facility] 1 [place] [address] Multiple myeloma, remission status unspecified (HCC) Discharge Disposition: Discharge to home or self care 08/06/2024 8:00 AM ASSOCIATE [employer] Infusion [facility] [place] - Infusion [address] [facility] Floor [address] [place] [address] Multiple myeloma not having achieved remission (HCC) (Primary Dx); Hypogammaglobuline hakeem 08/06/2024 7:15 AM ASSOCIATE [employer] Clinical Support [facility] - Lab Collection [address] [facility] Floor [address] [place] [address] Multiple myeloma in relapse (HCC) (Primary Dx); Multiple myeloma, remission status unspecified (HCC); JOHN (acute kidney injury) 08/06/2024 Telephone [facility] [address] [phone] Lyndsey Fagan NP 08/06/2024 Orders Only [facility] [address] [facility] 6 [place] [phone] Lyndsey Fagan NP Multiple myeloma, remission status unspecified (HCC) (Primary Dx) 08/06/2024 Orders Only [facility] [address] [place] [phone] Lyndsey Fagan NP JOHN (acute kidney injury) (Primary Dx) 08/06/2024 Orders Only [facility] [address] [place] [phone] Hermelindo Hill MD Multiple myeloma, remission status unspecified (HCC) (Primary Dx) 08/03/2024 9:30 AM ASSOCIATE [employer] Infusion [facility] - Infusion [address] [place] [address] 6 [place] [address] Multiple myeloma in relapse (HCC) (Primary Dx); Multiple myeloma in remission (HCC) 08/03/2024 8:30 AM ASSOCIATE [employer] Office Visit [facility] [address] [place] [phone] Hermelindo Hill MD Multiple myeloma, remission status unspecified (HCC) (Primary Dx); Multiple myeloma in remission (HCC); Multiple myeloma in relapse (HCC) 08/03/2024 7:30 AM ASSOCIATE [employer] Clinical Support [facility] - Lab Collection [address] [place] [address] Multiple myeloma in remission (HCC); Multiple myeloma, remission status unspecified (HCC); Multiple myeloma in relapse (HCC) 08/03/2024 Orders Only [facility] [address] [place] [phone] Hermelindo Hill MD 08/03/2024 Orders Only [facility] [address] [place] [phone] Hermelindo Hill MD 08/03/2024 Orders Only [facility] [address] [place] [phone] Hermelindo Hill MD 08/02/2024 Telephone [facility] [address] [place] [address] Lyndsey Fagan NP 07/30/2024 Telephone [facility] [address] [place] [phone] Hermelindo Hill MD 07/27/2024 Telephone [facility] [address] [place] [phone] Hermelindo Hill MD 07/26/2024 Orders Only [facility] [address] [place] [phone] Hermelindo Hill MD 07/26/2024 Orders Only [facility] [address] [place] [phone] Hermelindo Hill MD 07/26/2024 Telephone [facility] [address] [place] [phone] Margaret Kay RMA Medical Question/Miscellan eous 07/13/2024 10:00 AM ASSOCIATE [employer] Infusion [facility] - Infusion [address] [place] [address] Multiple myeloma in relapse (HCC) (Primary Dx); Multiple myeloma in remission (HCC) 07/13/2024 9:00 AM ASSOCIATE [employer] Office Visit [facility] [address] [place] [phone] Hermelindo Hill MD Multiple myeloma, remission status unspecified (HCC) (Primary Dx); Multiple myeloma in remission (HCC); Hypogammaglobuline hakeem 07/13/2024 8:00 AM ASSOCIATE [employer] Clinical Support [facility] - Lab Collection [address] [place] [address] 6 [place] [address] Multiple myeloma in remission (HCC); Multiple myeloma in relapse (HCC); Multiple myeloma, remission status unspecified (HCC) 07/13/2024 Telephone [facility] [address] [place] [phone] Fadumo Tobar RN 06/22/2024 8:30 AM ASSOCIATE [employer] Infusion [facility] - Infusion [address] [place] [address] Multiple myeloma, remission status unspecified (HCC) (Primary Dx); Multiple myeloma in remission (HCC); Multiple myeloma in relapse (HCC) 06/22/2024 8:00 AM ASSOCIATE [employer] Office Visit [facility] [address] [place] [phone] Hermelindo Hill MD Multiple myeloma in relapse (HCC) (Primary Dx); Multiple myeloma, remission status unspecified (HCC); Hypogammaglobuline hakeem; Obesity, morbid (HCC) 06/22/2024 7:00 AM ASSOCIATE [employer] Clinical Support [facility] - Lab Collection [address] [place] [address] Multiple myeloma, remission status unspecified (HCC); Multiple myeloma in relapse (HCC) 06/22/2024 Orders Only [facility] [address] [place] [phone] Hermelindo Hill MD 06/22/2024 Orders Only [facility] [address] [place] [phone] Hermelindo Hill MD Multiple myeloma in remission (HCC) (Primary Dx); Multiple myeloma in relapse (HCC) 06/14/2024 Telephone [facility] [address] [place] [phone] Margaret Kay RMA Reschedule from Last [...] chemotherapy has chemo every [address] [facility] tx 09/24/22 Cough patient states D r [...] on file Legal Sex 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 ASSOCIATE [employer] Gender Identity Not on file Sexual Orientation [...] history exists Medical Devices Implanted Type Area Online Marketing Specialist Device Identifier Shelf Expiration Date Model / [...] Read Routine (OP Routine) 08/06/2024 2:42 PM [employer]OCIATE [employer] Multiple myeloma, remission status unspecified (HCC) URINALYSIS, MICROSCOPIC ONLY Routine 08/06/2024 9:19 AM ASSOCIATE [employer] JOHN (acute kidney injury) PROTEIN / CREATININE RATIO, URINE, RANDOM Routine 08/06/2024 9:19 AM ASSOCIATE [employer] JOHN (acute kidney injury) URINALYSIS AND REFLEX TO MICROSCOPIC Routine 08/06/2024 9:19 AM ASSOCIATE [employer] JOHN (acute kidney injury) EGFR Routine 08/06/2024 7:43 AM ASSOCIATE [employer] Multiple myeloma, remission status unspecified (HCC) DIFFERENTIAL AUTO Routine 08/06/2024 7:4 3 AM ASSOCIATE [employer] Multiple myeloma, remission status unspecified (HCC) LACTATE DEHYDROGENASE Routine 08/06/2024 7:43 AM ASSOCIATE [employer] Multiple myeloma, remission status unspecified (HCC) CBC WITH AUTO DIFFERENTIAL Routine 08/06/2024 7:43 AM ASSOCIATE [employer] Multiple myeloma, remission status unspecified (HCC) COMPREHENSIVE METABOLIC PANEL Routine 08/06/2024 7:43 AM ASSOCIATE [employer] Multiple myeloma, remission status unspecified (HCC) LIPID PANEL Routine 08/06/2024 7:43 AM ASSOCIATE [employer] Multiple myeloma, remission status unspecified (HCC) PSA DIAGNOSTIC Routine 08/06/2024 7:43 AM ASSOCIATE [employer] Multiple myeloma, remission status unspecified (HCC) PROTIME-INR STAT 08/03/2024 9:21 AM ASSOCIATE [employer] Multiple myeloma in relapse (HCC) APTT STAT 08/03/2024 9:21 AM ASSOCIATE [employer] Multiple myeloma in relapse (HCC) MAGNESIUM STAT 08/03/2024 7:40 AM ASSOCIATE [employer] Multiple myeloma in relapse (HCC) GAMMA GT STAT 08/03/2024 7:40 AM ASSOCIATE [employer] Multiple myeloma in relapse (HCC) EGFR Routine 08/03/2024 7:40 AM ASSOCIATE [employer] Multiple myeloma, remission status unspecified (HCC) DIFFERENTIAL AUTO Routine 08/03/2024 7:4 0 AM ASSOCIATE [employer] Multiple myeloma, remission status unspecified (HCC) CBC WITH AUTO DIFFERENTIAL Routine 08/03/2024 7:40 AM ASSOCIATE [employer] Multiple myeloma, remission status unspecified (HCC) COMPREHENSIVE METABOLIC PANEL Routine 08/03/2024 7:40 AM ASSOCIATE [employer] Multiple myeloma, remission status unspecified (HCC) IGA Routine 08/03/2024 7:40 AM ASSOCIATE [employer] Multiple myeloma, remission status unspecified (HCC) IGG Routine 08/03/2024 7:40 AM ASSOCIATE [employer] Multiple myeloma, remission status unspecified (HCC) IGM Routine 08/03/2024 7:40 AM ASSOCIATE [employer] Multiple myeloma, remission status unspecified (HCC) IMMUNOGLOBULIN FREE LIGHT CHAINS Routine 08/03/2024 7:40 AM ASSOCIATE [employer] Multiple myeloma, remission status unspecified (HCC) LACTATE DEHYDROGENASE Routine 08/03/2024 7:40 AM ASSOCIATE [employer] Multiple myeloma, remission status unspecified (HCC) PROTEIN ELECTROPHORESIS, WITH REFLEX, SERUM Routine 08/03/2024 7:40 AM ASSOCIATE [employer] Multiple myeloma, remission status unspecified (HCC) IMMUNOTYPING Routine 08/03/2024 7:40 AM ASSOCIATE [employer] Multiple myeloma, remission status unspecified (HCC) HEMOGLOBIN A1C Routine 08/03/2024 7:40 AM ASSOCIATE [employer] Multiple myeloma, remission status unspecified (HCC) URINALYSIS, MICROSCOPIC ONLY Routine 08/03/2024 7:30 AM ASSOCIATE [employer] Multiple myeloma, remission status unspecified (HCC) URINE CULTURE Routine 08/03/2024 7:30 AM ASSOCIATE PROF[employer] URINALYSIS AND REFLEX TO MICROSCOPIC AND CULTURE Routine 08/03/2024 7:30 AM ASSOCIATE [employer] Multiple myeloma, remission status unspecified (HCC) EGFR STAT 07/13/2024 7:40 AM ASSOCIATE [employer] Multiple myeloma in relapse (HCC) DIFFERENTIAL AUTO STAT 07/13/2024 7:4 0 AM ASSOCIATE [employer] Multiple myeloma in relapse (HCC) IGA Routine 07/13/2024 7:40 AM ASSOCIATE [employer] Multiple myeloma, remission status unspecified (HCC) IGG Routine 07/13/2024 7:40 AM ASSOCIATE [employer] Multiple myeloma, remission status unspecified (HCC) IGM Routine 07/13/2024 7:40 AM ASSOCIATE [employer] Multiple myeloma, remission status unspecified (HCC) IMMUNOGLOBULIN FREE LIGHT CHAINS Routine 07/13/2024 7:40 AM ASSOCIATE [employer] Multiple myeloma, remission status unspecified (HCC) PROTEIN ELECTROPHORESIS, WITH REFLEX, SERUM Routine 07/13/2024 7:40 AM ASSOCIATE [employer] Multiple myeloma, remission status unspecified (HCC) IMMUNOTYPING Routine 07/13/2024 7:40 AM ASSOCIATE PROF[employer] Multiple myeloma, remission status unspecified (HCC) LACTATE DEHYDROGENASE Routine 07/13/2024 7:40 AM ASSOCIATE PROF[employer] Multiple myeloma in relapse (HCC) GAMMA GT STAT 07/13/2024 7:40 AM ASSOCIATE [employer] Multiple myeloma in relapse (HCC) MAGNESIUM STAT 07/13/2024 7:40 AM ASSOCIATE [employer] Multiple myeloma in relapse (HCC) COMPREHENSIVE METABOLIC PANEL STAT 07/13/2024 7:40 AM ASSOCIATE [employer] Multiple myeloma in relapse (HCC) CBC WITH AUTO DIFFERENTIAL STAT 07/13/2024 7:40 AM ASSOCIATE [employer] Multiple myeloma in relapse (HCC) APTT STAT 07/13/2024 7:24 AM ASSOCIATE PROF[employer] Multiple myeloma in relapse (HCC) PROTIME-INR STAT 07/13/2024 7:24 AM ASSOCIATE [employer] Multiple myeloma in relapse (HCC) IMMUNOTYPING Routine 06/22/2024 7:20 AM ASSOCIATE [employer] Multiple myeloma, remission status unspecified (HCC) EGFR Routine 06/22/2024 7:20 AM ASSOCIATE PROF[employer] Multiple myeloma, remission status unspecified (HCC) DIFFERENTIAL AUTO Routine 06/22/2024 7:2 0 AM ASSOCIATE [employer] Multiple myeloma, remission status unspecified (HCC) CBC WITH AUTO DIFFERENTIAL Routine 06/22/2024 7:20 AM ASSOCIATE [employer] Multiple myeloma, remission status unspecified (HCC) COMPREHENSIVE METABOLIC PANEL Routine 06/22/2024 7:20 AM ASSOCIATE [employer] Multiple myeloma, remission status unspecified (HCC) IGA Routine 06/22/2024 7:20 AM ASSOCIATE PROF[employer]OR [employer] Multiple myeloma, remission status unspecified (HCC) IGG Routine 06/22/2024 7:20 AM ASSOCIATE [employer] Multiple myeloma, remission status unspecified (HCC) IGM Routine 06/22/2024 7:20 AM ASSOCIATE PROF[employer] Multiple myeloma, remission status unspecified (HCC) IMMUNOGLOBULIN FREE LIGHT CHAINS Routine 06/22/2024 7:20 AM ASSOCIATE PROF[employer] Multiple myeloma, remission status unspecified (HCC) LACTATE DEHYDROGENASE Routine 06/22/2024 7:20 AM ASSOCIATE PROF[employer] Multiple myeloma, remission status unspecified (HCC) PROTEIN ELECTROPHORESIS, WITH REFLEX, SERUM Routine 06/22/2024 7:20 AM ASSOCIATE PROF[employer] Multiple myeloma, remission status unspecified (HCC) MAGNESIUM STAT 06/22/2024 7:20 AM ASSOCIATE [employer] Multiple myeloma in relapse (HCC) GAMMA GT STAT 06/22/2024 7:20 AM ASSOCIATE [employer] Multiple myeloma in relapse (HCC) PROTIME-INR STAT 06/22/2024 7:20 AM ASSOCIATE [employer] Multiple myeloma in relapse (HCC) APTT STAT 06/22/2024 7:20 AM ASSOCIATE [employer] Multiple myeloma in relapse (HCC) HEPATITIS C ANTIBODY STAT 10/16/2021 9:50 AM CDT Multiple myeloma in relapse (HCC) from Last 3 Months or Most Recently Relevant to Health Maintenance Results * Differential, auto (08/31/2024 8:12 AM CDT) Neutrophil abs 6.0 1.5 - 6.5 K/cumm Comment:Testing performed by : [facility], [address] [place] [phone] Lymphocyte abs 1.0 0.8 - 3.3 K/cumm [facility] Comment:Testing performed by : [facility], [address] [place] [phone] Monocyte abs 0.6 0.2 - 0.8 K/cumm [facility] Comment:Testing performed by : [facility], [address] [place] [phone] Eosinophil abs 0.3 0.0 - 0.5 K/cumm [facility] Comment:Testing performed by : [facility], [address] [place] [phone] Basophil abs 0.1 0.0 - 0.1 K/cumm [facility] Comment:Testing performed by : [facility], [address] [place] [phone] Neutrophil pct 75.2 % [facility] Comment: Interpretive Data Percent cell count reference ranges are not reported, since discordance with absolute values may lead to misinterpretation of CBC data. Current Interpretive Data was last revised on 2017. Testing performed by: [facility], [address] [place] [phone] Lymphocyte pct 12.4 % [facility] Comment: Interpretive Data Percent cell count reference ranges are not reported, since discordance with absolute values may lead to misinterpretation of CBC data. Current Interpretive Data was last revised on 2017. Testing performed by: [facility], [address] [place] [phone] Monocyte pct 7.9 % [facility] Comment: Interpretive Data Percent cell count reference ranges are not reported, since discordance with absolute values may lead to misinterpretation of CBC data. Current Interpretive Data was last revised on 2017. Testing performed by: [facility], [address] [place] [phone] Eosinophil pct 3.9 % [facility] Comment: Interpretive Data Percent cell count reference ranges are not reported, since discordance with absolute values may lead to misinterpretation of CBC data. Current Interpretive Data was last revised on 2017. Testing performed by: [facility], [address] [place] [phone] Basophil pct 0.6 % [facility] Comment: Interpretive Data Percent cell count reference ranges are not reported, since discordance with absolute values may lead to misinterpretation of CBC data. Current Interpretive Data was last revised on 2017. Testing performed by: [facility], [address] [place] [phone] Blood 08/31/2024 8:12 AM CDT 08/31/2024 8:16 AM CDT Hermelindo Butler MD LAB BLOOD ORDER ELANA Final Result [facility] [place] [address] * (ABNORMAL) CBC with auto differential (08/31/2024 8:12 AM CDT) WBC 8.0 3.8 - 9.9 K/cumm Comment:Testing performed by : [facility], [address] [place] [address] Hgb 12.7(L) 13.0 - 17.5 g/dL [facility] Comment:Testing performed by : [facility], [address] [place] [address] Hct 37.8(L) 38.9 - 50.3 % [facility] Comment:Testing performed by : [facility], [address] [place] [address] Plt 176 150 - 400 K/cumm [facility] Comment:Testing performed by : [facility], [address] [place] [address] MPV 7.7 6.8 - 10.4 fL [facility] Comment:Testing performed by : [facility], [address] [place] [address] RBC 4.07(L) 4.30 - 5.80 M/cumm [facility]J Comment:Testing performed by : [facility], [address] [place] [address] MCV 92.8 81.3 - 96.4 fL [facility]ER[facility] BJ Comment:Testing performed by : [facility], [address] [place], [place] [id number] MCH 31.2 27.1 - 33.3 pg MT [facility] Comment:Testing performed by : [facility], [address] [place], [place] [id number] MCHC 33.6 32.3 - 35.7 g/dL MT SUAREZ Comment:Testing performed by : [facility], [address] [place], [place] [id number] RDW CV 16.1(H) 11.1 - 14.9 % [facility] Comment:Testing performed by : [facility], [address] [place], [place] [id number] NRBC abs 0.00 0.00 - 0.01 K/cumm [facility] Comment:Testing performed by : [facility], [address] [place], [place] [id number] Blood 08/31/2024 8:12 AM CDT 08/31/2024 8:16 AM CDT Hermelindo Butler MD LAB BLOOD ORDER ELANA Final Result Performing Organization Address City/[facility]/ZIP Co de Phone Number [facility] Department of SubC Control [place] [phone] * Type and screen (08/31/2024 8:12 AM CDT) ABO Rh A Positive Yehuda, indirect Negative [facility] Comment:Patient has previous antibody history Blood 08/31/2024 8:12 AM CDT 08/31/2024 8:25 AM CDT Narrative MT SUAREZ - 08/31/2024 9:28 AM CDT Has the patient had Daratumumab or Isatuximab in the past 6 months?->Unknown Hermelindo Butler MD LAB BLOOD BANK TEST ORDERABLES Final Result MT [facility] One [facility] [place] [address] * Immunotyping, serum with interpretation (08/31/2024 8:12 AM CDT) Immunosubtraction Please see comment Comment: NO PARAPROTEIN DETECTED Reviewed and signed by Ivan Sims MD, PhD 09/01/2024 Blood 08/31/2024 8:12 AM CDT 08/31/2024 9:34 AM CDT us Hermelindo Butler MD LAB BLOOD ORDER ELANA Final Result MT SUAREZ One [facility] [place] [address] * (ABNORMAL) eGFR (08/31/2024 8:12 AM CDT) Pathologist [facility] eGFR 45(L) >=60 mL/min/1. 73 m2 Comment: [...] Final Result MT SUAREZ One [facility] [place] [address] * (ABNORMAL) Immunoglobulin free light chains (08/31/2024 8:12 AM CDT) Pathologist [facility] [place]/Lambda ratio [facility] See Comment 0.26 - 1.65 Comment: Unable to calculate exact result. Interpretive Data The Binding Site FreeLite assay procedure was used. Results from different manufacturers or methods may not be comparable. Serial testing should be performed using the same methods and instrumentation. Current Interpretive Data was last revised on 2023. [place] free light chain [facility] <0.06(L) 0.33 - 1.94 mg/dL [facility] Comment: Interpretive Data The Binding Site FreeLite assay procedure was used. Results from different manufacturers or methods may not be comparable. Serial testing should be performed using the same methods and instrumentation. Current Interpretive Data was last revised on 2023. [place] free light chain [facility] <0.14(L) 0.57 - 2.63 mg/dL [facility] Comment: Interpretive Data The Binding Site FreeLite assay procedure was used. Results from different manufacturers or methods may not be comparable. Serial testing should be performed using the same methods and instrumentation. Current Interpretive Data was last revised on 2023. Blood 08/31/2024 8:12 AM CDT 08/31/2024 9:34 AM CDT Hermelindo Butler MD LAB BLOOD ORDER ELANA Final Result Performing Organization Address City/[facility] Co de Phone Number MT SUAREZ One [facility] Department [place] [address] * (ABNORMAL) aPTT (08/31/2024 8:12 AM CDT) Pathologist [facility] aPTT 50(H) 28 - 38 sec Comment: Interpretive Data Heparin therapeutic range: 66.0 - 100.0 seconds. Range based on correlation with therapeutic heparin activity range of 0.3 - 0.7 Units/mL. Current interpretive data was last revised on 2023. Blood 08/31/2024 8:12 AM CDT 08/31/2024 8:41 AM CDT Hermelindo Butler MD LAB BLOOD ORDER ELANA Final Result Performing Organization Address [facility] de Phone Number [facility] [place] [address] * Protime-INR (08/31/2024 8:12 AM CDT) Pathologist [facility] PT 11.4 9.7 - 13.0 sec INR 1.05 0.90 - 1.20 [facility] Comment: Interpretive data Oral anticoagulant therapeutic ranges: Venous thromboembolism prophylaxis or treatment: 2.0-3.0 CARDIOLOGY Standard range: 2.0-3.0 High-intensity range: 2.5-3.5 Refer to indication-specific guidelines for appropriate target ranges for prosthetic heart valve replacement. Current interpretive data was last revised on 2019. Blood 08/31/2024 8:12 AM CDT 08/31/2024 8:41 AM CDT Hermelindo Butler MD LAB BLOOD ORDER ELANA Final Result Performing Organization Address [facility] de Phone Number [facility] [place] [address] * (ABNORMAL) Protein electrophoresis with reflex, serum with interpretation (08/31/2024 8:12 AM CDT) Pathologist [facility] Protein, sr 6.0(L) 6.2 - 8.2 g/dL Albumin 3.9 3.2 - 5.0 g/dL [facility] Alpha-1 globulin 0.4 0.2 - 0.4 g/dL [facility] Alpha-2 globulin 0.7 0.5 - 1.0 g/dL [facility] Beta-1 globulin 0.5 0.3 - 0.6 g/dL [facility] Beta-2 globulin 0.3 0.2 - 0.6 g/dL [facility] Gamma globulin 0.2(L) 0.5 - 1.7 g/dL [facility] SPEP interp Please see comment [facility] Comment: No apparent monoclonal peak Decreased gamma globulins Electrophoretic pattern appears similar to previous sample 08/24/2024 See immunotyping for further information Reviewed and signed by Ivan Sims MD, PhD 09/01/2024 Blood 08/31/2024 8:12 AM CDT 08/31/2024 9:34 AM CDT Hermelindo Butler MD LAB BLOOD ORDER ELANA Final Result Performing Organization Address City/[facility] Co de Phone Number [facility] Department [place] [address] * Magnesium (08/31/2024 8:12 AM CDT) Magnesium 1.8 1.4 - 2.5 mg/dL Blood 08/31/2024 8:12 AM CDT 08/31/2024 8:20 AM CDT Hermelindo Butler MD LAB BLOOD ORDER ELANA Final Result Performing Organization Address City/[facility] Co de Phone Number [facility] Department [place] [address] * Lactate dehydrogenase (LD) (08/31/2024 8:12 AM CDT) Lactate dehydrogenase (LDH) 155 100 - 250 Units/L Blood 08/31/2024 8:12 AM CDT 08/31/2024 8:20 AM CDT Hermelindo Butler MD LAB BLOOD ORDER ELANA Final Result Performing Organization Address City/[facility]/ZIP Co de Phone Number [facility] Department [place] [address] * Gamma GT (08/31/2024 8:12 AM CDT) Pathologist [facility] GGT 27 10 - 50 Units/L Blood 08/31/2024 8:12 AM CDT 08/31/2024 8:20 AM CDT Hermelindo Butler MD LAB BLOOD ORDER ELANA Final Result [facility] [place] [address] * (ABNORMAL) IgA (08/31/2024 8:12 AM CDT) [facility] Immunoglobulin A <50(L) 70 - 400 mg/dL Blood 08/31/2024 8:12 AM CDT 08/31/2024 8:38 AM CDT Hermelindo Butler MD LAB BLOOD ORDER ELANA Final Result Performing Organization Address City/[facility] Co de Phone Number [facility] Department [place] [address] * (ABNORMAL) IgM (08/31/2024 8:12 AM CDT) [facility] Immunoglobulin M <25(L) 40 - 230 mg/dL Blood 08/31/2024 8:12 AM CDT 08/31/2024 8:38 AM CDT Hermelindo Butler MD LAB BLOOD ORDER ELANA Final Result Performing Organization Address City/[facility] Co de Phone Number [facility] [place] [address] * (ABNORMAL) IgG (08/31/2024 8:12 AM CDT) Immunoglobulin G <300(L) 700 - 1,600 mg/dL Blood 08/31/2024 8:12 AM CDT 08/31/2024 8:38 AM CDT Hermelindo Butler MD LAB BLOOD ORDER ELANA Final Result [facility] One [facility] Department [place] [address] * (ABNORMAL) Comprehensive metabolic panel (08/31/2024 8:12 AM CDT) Pathologist [facility] Sodium 141 135 - 145 mmol/L Potassium, pl 4.0 3.3 - 4.9 mmol/L [facility] Chloride 103 97 - 110 mmol/L [facility] CO2 29 22 - 32 mmol/L [facility] Anion gap 9 2 - 15 mmol/L [facility] BUN 31(H) 6 - 25 mg/dL [facility] Creatinine 1.61(H) 0.80 - 1.30 mg/dL [facility] Glucose 114 70 - 199 mg/dL [facility] Comment: Interpretive Data Fasting glucose >/= [...] 2022. Calcium 9.4 8.5 - 10.3 mg/dL [facility] Bilirubin, total 0.4 0.1 - 1.2 mg/dL [facility] Protein, pl 6.5 6.5 - 8.5 g/dL [facility] Albumin 4.1 3.5 - 5.0 g/dL [facility] Alk phos 65 40 - 130 Units/L [facility] ALT 16 7 - 55 Units/L [facility] AST 15 10 - 50 Units/L [facility] Blood 08/31/2024 8:12 AM CDT 08/31/2024 8:20 AM CDT us Hermelindo Butler MD LAB BLOOD ORDER ELANA Final Result [facility] [place] [address] * SCAN - LABS (08/30/2024) us Provider [...] Hargrove MD LAB BLOOD ORDERABLES Final Result [facility] Department [place] [address] * (ABNORMAL) Differential, auto (08/26/2024 12:25 AM CDT) Neutrophil abs 5.3 1.5 - 6.5 K/cumm Imm gran abs 0.0 0.0 - 0.1 K/cumm [facility] Lymphocyte abs 0.7(L) 0.8 - 3.3 K/cumm [facility] Monocyte abs 0.6 0.2 - 0.8 K/cumm [facility] Eosinophil abs 0.3 0.0 - 0.5 K/cumm [facility]ANN[facility]ER [facility] Basophil abs 0.0 0.0 - 0.1 K/cumm [facility] Neutrophil pct 75.7 % CERNER [facility] Comment: Interpretive Data Percent cell count reference ranges are not reported, since discordance with absolute values may lead to misinterpretation of CBC data. Current Interpretive Data was last revised on 2017. Imm gran pct 0.4 % [facility] Comment: Interpretive Data Percent cell count reference ranges are not reported, since discordance with absolute values may lead to misinterpretation of CBC data. Current Interpretive Data was last revised on 2017. Lymphocyte pct 10.4 % [facility] Comment: Interpretive Data Percent cell count reference ranges are not reported, since discordance with absolute values may lead to misinterpretation of CBC data. Current Interpretive Data was last revised on 2017. Monocyte pct 9.0 % [facility] Comment: Interpretive Data Percent cell count reference ranges are not reported, since discordance with absolute values may lead to misinterpretation of CBC data. Current Interpretive Data was last revised on 2017. Eosinophil pct 4.4 % [facility] Comment: Interpretive Data Percent cell count reference ranges are not reported, since discordance with absolute values may lead to misinterpretation of CBC data. Current Interpretive Data was last revised on 2017. Basophil pct 0.1 % [facility] Comment: Interpretive Data Percent cell count reference ranges are not reported, since discordance with absolute values may lead to misinterpretation of CBC data. Current Interpretive Data was last revised on 2017. Blood 08/26/2024 12:2 5 AM CDT 08/26/2024 12:35 AM CDT Karlos Hargrove MD LAB BLOOD ORDERABLES Final Result Performing Organization Address [facility] Co de Phone Number [facility] Department [place] [address] * (ABNORMAL) CBC with auto differential (08/26/2024 12:25 AM CDT) [facility] WBC 7.0 3.8 - 9.9 K/cumm Hgb 11.8(L) 13.0 - 17.5 g/dL [facility] Hct 35.7(L) 38.9 - 50.3 % [facility] Plt 131(L) 150 - 400 K/cumm [facility] MPV 9.2 9.1 - 12.3 fL [facility] RBC 3.83(L) 4.30 - 5.80 M/cumm [facility] MCV 93.2 81.3 - 96.4 fL [facility] MCH 30.8 27.1 - 33.3 pg [facility] MCHC 33.1 32.3 - 35.7 g/dL [facility] RDW CV 15.4(H) 11.1 - 14.9 % [facility] RDW SD 51.7(H) 35.7 - 48.1 fL [facility] NRBC abs 0.00 0.00 - 0.01 K/cumm [facility] Blood 08/26/2024 12:2 5 AM CDT 08/26/2024 12:35 AM CDT Karlos Hargrove MD LAB BLOOD ORDERABLES Final Result Performing Organization Address City/[facility]/ZIP Co de Phone Number [facility] Department [place] [address] * Type and screen (08/26/2024 12:25 AM CDT) [facility] Yehuda, indirect Negative Comment:Patient has previous antibody history ABO Rh A Positive [facility] Blood 08/26/2024 12:2 5 AM CDT 08/26/2024 12:38 AM CDT Narrative [facility] - 08/26/2024 2:23 AM CDT Has the patient had Daratumumab or Isatuximab in the past 6 months?->Unknown Karlos Hargrove MD LAB BLOOD BANK TEST ORDERA BLES Final Result Performing Organization Address [facility] Co de Phone Number [facility] [place] [address] * (ABNORMAL) Uric acid (08/26/2024 12:25 AM CDT) Pathologist [facility] Uric acid 8.6(H) 3.0 - 8.0 mg/dL Blood 08/26/2024 12:2 5 AM CDT 08/26/2024 12:35 AM CDT Narrative [facility] - 08/26/2024 1:10 AM CDT Friday and only. Morning draw. . Karlos Hargrove MD LAB BLOOD ORDERABLES Final Result Performing Organization Address [facility] Co de Phone Number [facility] [place] [address] * Phosphorus (08/26/2024 12:25 AM CDT) Pathologist [facility] Phosphorus, pl 3.6 2.3 - 4.5 mg/dL Blood 08/26/2024 12:2 5 AM CDT 08/26/2024 12:35 AM CDT Karlos Hargrove MD LAB BLOOD ORDERABLES Final Result Performing Organization Address [facility] Co de Phone Number [facility] [place] [address] * Magnesium (08/26/2024 12:25 AM CDT) [facility] Magnesium 1.7 1.4 - 2.5 mg/dL Blood 08/26/2024 12:2 5 AM CDT 08/26/2024 12:35 AM CDT Karlos Hargrove MD LAB BLOOD ORDERABLES Final Result Performing Organization Address City/[facility] Co de Phone Number [facility] [place] [address] * Lactate dehydrogenase (LD) (08/26/2024 12:25 AM CDT) [facility] Lactate dehydrogenase (LDH) 167 100 - 250 Units/L Blood 08/26/2024 12:2 5 AM CDT 08/26/2024 12:35 AM CDT Narrative [facility] - 08/26/2024 1:10 AM CDT Friday and only. Morning draw. Karlos Hargrove MD LAB BLOOD ORDERABLES Final Result Performing Organization Address [facility] Co de Phone Number [facility] [place] [address] * (ABNORMAL) Comprehensive metabolic panel (08/26/2024 12:25 AM CDT) [facility] Sodium 148(H) 135 - 145 mmol/L Potassium, pl 3.4 3.3 - 4.9 mmol/L [facility] Chloride 108 97 - 110 mmol/L [facility] CO2 28 22 - 32 mmol/L [facility] Anion gap 12 2 - 15 mmol/L [facility] BUN 35(H) 6 - 25 mg/dL [facility] Creatinine 2.27(H) 0.80 - 1.30 mg/dL [facility] Glucose 107 70 - 199 mg/dL [facility] Comment: Interpretive Data Fasting glucose >/= [...] Calcium 8.9 8.5 - 10.3 mg/dL [facility] Bilirubin, total 0.6 0.1 - 1.2 mg/dL [facility] Protein, pl 5.9(L) 6.5 - 8.5 g/dL [facility] Albumin 3.7 3.5 - 5.0 g/dL [facility]ER [facility] Alk phos 60 40 - 130 Units/L [facility] ALT 15 7 - 55 Units/L [facility] AST 13 10 - 50 Units/L [facility] Blood 08/26/2024 12:2 5 AM CDT 08/26/2024 12:35 AM CDT Karlos Hargrove MD LAB BLOOD ORDERABLES Final Result Performing Organization Address City/State/[facility] Co de Phone Number MT SUAREZ One [facility] [place] [address] * US Vein Duplex Lower Extremity Bilateral Complete (08/25/2024 9:30 AM CDT) Anatomical Region Laterality Modality Vascular Bilateral Ultrasound 08/25/2024 8:37 AM CDT Narrative 08/27/2024 11:10 AM CDT [employer] - Department of Vascular Surgery, Vascular Laboratory [address] [place] [address] Lower Extremity Venous Ultrasound Report Patient Name: BUFFY VALLECarl : 1950 (73y 8m) Study Date: 08/25/2024 8:37:41 AM Gender: M Tech: Location: [id number] Ref Provider: OLGA KEITH Quality: Adequate Order Provider: OLGA KEITH PROCEDURES: Vascular Report: Venous Duplex imaging was performed bilaterally in the lower extremities. The common femoral, femoral, popliteal, posterior tibial, peroneal veins were evaluated for patency, spontaneity and phasicity with Doppler, compression and augmentation maneuvers. Great saphenous vein proximal at the junction was evaluated with compression maneuvers. INDICATIONS: Localized edema. FINDINGS: Performing Associate Merchandiser: Farzana Owens RVT. Bilateral: Venous Doppler signals [...] Electronically Signed By: Cesar Cabello MD [facility] [phone] 08/27/2024 10:10:26 AM CDT Procedure Note Cesar Cabello MD - 08/27/2024 [facility] - Department of Vascular Surgery,Vascular Laboratory [address] [place] [address] Lower Extremity Venous Ultrasound Report Patient Name: BUFFY VALLE B : 1950 (73y 8m) Study Date: 08/25/2024 8:37:41 AM Gender: M Tech: Location: [id number] Ref Provider: OLGA KEITH Quality: Adequate Order Provider: OLGA KEITH PROCEDURES: Vascular Report: Venous Duplex imaging was performed bilaterally in the lower extremities.The common femoral, femoral, popliteal, posterior tibial, peroneal veins wereevaluated for patency, spontaneity and phasicity with Doppler, compression and augmentationmaneuvers. Great saphenous vein proximal at the junction was evaluated with compressionmaneuvers. INDICATIONS: Localized edema. FINDINGS: Performing Associate Merchandiser: Farzana Owens RVT. Bilateral: Venous Doppler signals [...] Electronically Signed By: Cesar Cabello MD [facility] [phone] 08/27/2024 10:10:26 AM CDT Olga Keith MD [facility] [place] PROCEDURES Final [...] Hargrove MD LAB BLOOD ORDERABLES Final Result [facility] One [facility] [place] [address] * (ABNORMAL) Differential, auto (08/25/2024 12:34 AM CDT) Neutrophil abs 5.2 1.5 - 6.5 K/cumm Imm gran abs 0.1 0.0 - 0.1 K/cumm [facility] Lymphocyte abs 0.5(L) 0.8 - 3.3 K/cumm [facility] Monocyte abs 0.5 0.2 - 0.8 K/cumm [facility] Eosinophil abs 0.4 0.0 - 0.5 K/cumm [facility] Basophil abs 0.0 0.0 - 0.1 K/cumm [facility] Neutrophil pct 77.6 % [facility] Comment: Interpretive Data Percent cell count reference ranges are not reported, since discordance with absolute values may lead to misinterpretation of CBC data. Current Interpretive Data was last revised on 2017. Imm gran pct 0.7 % [facility] Comment: Interpretive Data Percent cell count reference ranges are not reported, since discordance with absolute values may lead to misinterpretation of CBC data. Current Interpretive Data was last revised on 2017. Lymphocyte pct 7.9 % [facility] Comment: Interpretive Data Percent cell count reference ranges are not reported, since discordance with absolute values may lead to misinterpretation of CBC data. Current Interpretive Data was last revised on 2017. Monocyte pct 7.5 % [facility] Comment: Interpretive Data Percent cell count reference ranges are not reported, since discordance with absolute values may lead to misinterpretation of CBC data. Current Interpretive Data was last revised on 2017. Eosinophil pct 6.0 % [facility] Comment: Interpretive Data Percent cell count reference ranges are not reported, since discordance with absolute values may lead to misinterpretation of CBC data. Current Interpretive Data was last revised on 2017. Basophil pct 0.3 % [facility] Comment: Interpretive Data Percent cell count reference ranges are not reported, since discordance with absolute values may lead to misinterpretation of CBC data. Current Interpretive Data was last revised on 2017. Blood 08/25/2024 12:3 4 AM CDT 08/25/2024 12:57 AM CDT Karlos Hargrove MD LAB BLOOD ORDERABLES Final Result [facility] One [facility] [place] [address] * (ABNORMAL) CBC with auto differential (08/25/2024 12:34 AM CDT) WBC 6.7 3.8 - 9.9 K/cumm Hgb 11.2(L) 13.0 - 17.5 g/dL [facility] Hct 33.3(L) 38.9 - 50.3 % [facility] Plt 136(L) 150 - 400 K/cumm [facility] MPV 9.5 9.1 - 12.3 fL [facility] RBC 3.57(L) 4.30 - 5.80 M/cumm [facility] MCV 93.3 81.3 - 96.4 fL [facility] MCH 31.4 27.1 - 33.3 pg [facility] MCHC 33.6 32.3 - 35.7 g/dL [facility] RDW CV 15.3(H) 11.1 - 14.9 % [facility] RDW SD 51.0(H) 35.7 - 48.1 fL [facility] NRBC abs 0.00 0.00 - 0.01 K/cumm [facility] Blood 08/25/2024 12:3 4 AM CDT 08/25/2024 12:57 AM CDT Karlos Hargrove MD LAB BLOOD ORDERABLES Final Result Performing Organization Address City/[facility] Co de Phone Number [facility] [place] [address] * Phosphorus (08/25/2024 12:34 AM CDT) [facility] Phosphorus, pl 3.7 2.3 - 4.5 mg/dL Blood 08/25/2024 12:3 4 AM CDT 08/25/2024 12:55 AM CDT Karlos Hargrove MD LAB BLOOD ORDERABLES Final Result Performing Organization Address [facility] Co de Phone Number [facility] [place] [address] * Magnesium (08/25/2024 12:34 AM CDT) [facility] Magnesium 1.9 1.4 - 2.5 mg/dL Blood 08/25/2024 12:3 4 AM CDT 08/25/2024 12:55 AM CDT Karlos Hargrove MD LAB BLOOD ORDERABLES Final Result Performing Organization Address [facility] Co de Phone Number [facility] [place] [address] * (ABNORMAL) Comprehensive metabolic panel (08/25/2024 12:34 AM CDT) [facility] Sodium 147(H) 135 - 145 mmol/L Potassium, pl 3.2(L) 3.3 - 4.9 mmol/L [facility] Chloride 109 97 - 110 mmol/L [facility] CO2 26 22 - 32 mmol/L [facility] Anion gap 12 2 - 15 mmol/L [facility] BUN 47(H) 6 - 25 mg/dL [facility] Creatinine 2.74(H) 0.80 - 1.30 mg/dL [facility] Glucose 154 70 - 199 mg/dL [facility] Comment: Interpretive Data Fasting glucose >/= [...] 2022. Calcium 8.4(L) 8.5 - 10.3 mg/dL [facility] Bilirubin, total 0.4 0.1 - 1.2 mg/dL [facility] Protein, pl 5.9(L) 6.5 - 8.5 g/dL [facility] Albumin 3.9 3.5 - 5.0 g/dL [facility] Alk phos 61 40 - 130 Units/L [facility] ALT 18 7 - 55 Units/L [facility] AST 17 10 - 50 Units/L [facility] Blood 08/25/2024 12:3 4 AM CDT 08/25/2024 12:55 AM CDT us Karlos Hargrove MD LAB BLOOD ORDERABLES Final Result Performing Organization Address City/[facility]/ZIP Co de Phone Number [facility] [place] [address] * Sodium, urine, random (08/24/2024 5:16 PM CDT) Sodium, ur 44 mmol/L Comment: Interpretive Data No reference range established. Current interpretive data was last revised 2018. Urine 08/24/2024 5:16 PM CDT 08/24/2024 5:31 PM CDT us Olga Keith MD LAB URINE ORDERABLES Final Resul t [facility] [place] [address] * CT Abdomen Pelvis WO Contrast (08/24/2024 [...] by: Randall Braun M.D. Olga Keith MD IMG CT PROCEDURES Final Result * (ABNORMAL) Differential, auto (08/24/2024 2:30 AM CDT) Neutrophil abs 4.9 1.5 - 6.5 K/cumm Imm gran abs 0.0 0.0 - 0.1 K/cumm [facility] Lymphocyte abs 0.7(L) 0.8 - 3.3 K/cumm [facility] Monocyte abs 0.6 0.2 - 0.8 K/cumm [facility] Eosinophil abs 0.5 0.0 - 0.5 K/cumm [facility] Basophil abs 0.0 0.0 - 0.1 K/cumm [facility] Neutrophil pct 73.7 % [facility] Comment: Interpretive Data Percent cell count reference ranges are not reported, since discordance with absolute values may lead to misinterpretation of CBC data. Current Interpretive Data was last revised on 2017. Imm gran pct 0.6 % [facility] Comment: Interpretive Data Percent cell count reference ranges are not reported, since discordance with absolute values may lead to misinterpretation of CBC data. Current Interpretive Data was last revised on 2017. Lymphocyte pct 10.0 % [facility] Comment: Interpretive Data Percent cell count reference ranges are not reported, since discordance with absolute values may lead to misinterpretation of CBC data. Current Interpretive Data was last revised on 2017. Monocyte pct 8.3 % [facility] Comment: Interpretive Data Percent cell count reference ranges are not reported, since discordance with absolute values may lead to misinterpretation of CBC data. Current Interpretive Data was last revised on 2017. Eosinophil pct 7.1 % [facility] Comment: Interpretive Data Percent cell count reference ranges are not reported, since discordance with absolute values may lead to misinterpretation of CBC data. Current Interpretive Data was last revised on 2017. Basophil pct 0.3 % [facility] Comment: Interpretive Data Percent cell count reference ranges are not reported, since discordance with absolute values may lead to misinterpretation of CBC data. Current Interpretive Data was last revised on 2017. Blood 08/24/2024 2:30 AM CDT 08/24/2024 1:28 AM CDT Karlos Hargrove MD LAB BLOOD ORDERABLES Final Result Performing Organization Address [facility] Co de Phone Number [facility] [place] [address] * (ABNORMAL) CBC with auto differential (08/24/2024 2:30 AM CDT) Pathologist [facility] WBC 6.6 3.8 - 9.9 K/cumm Hgb 10.9(L) 13.0 - 17.5 g/dL [facility] Hct 33.1(L) 38.9 - 50.3 % [facility] Plt 130(L) 150 - 400 K/cumm [facility] MPV 10.0 9.1 - 12.3 fL [facility] RBC 3.50(L) 4.30 - 5.80 M/cumm [facility] MCV 94.6 81.3 - 96.4 fL [facility] MCH 31.1 27.1 - 33.3 pg [facility] MCHC 32.9 32.3 - 35.7 g/dL [facility] RDW CV 15.3(H) 11.1 - 14.9 % [facility] RDW SD 51.8(H) 35.7 - 48.1 fL [facility] NRBC abs 0.00 0.00 - 0.01 K/cumm [facility] Blood 08/24/2024 2:30 AM CDT 08/24/2024 1:28 AM CDT Karlos Hargrove MD LAB BLOOD ORDERABLES Final Result Performing Organization Address City/[facility]/ZIP Co de Phone Number [facility] [place] [address] * (ABNORMAL) eGFR (08/24/2024 1:12 AM CDT) Pathologist [facility] eGFR 20(L) >=60 mL/min/1. 73 m2 Comment: [...] BLOOD ORDERABLES Final Result Performing Organization Address City/[facility] Co de Phone Number [facility] [place] [address] * aPTT (08/24/2024 1:12 AM CDT) aPTT [...] BLOOD ORDERABLES Final Result Performing Organization Address City/[facility]/ZIP Co de Phone Number [facility] [place] [address] * Protime-INR (08/24/2024 1:12 AM CDT) Pathologist [facility] PT 11.7 9.7 - 13.0 sec INR 1.08 0.90 - 1.20 [facility] Comment: Interpretive data Oral anticoagulant therapeutic ranges: Venous thromboembolism prophylaxis or treatment: 2.0-3.0 CARDIOLOGY Standard range: 2.0-3.0 High-intensity range: 2.5-3.5 Refer to indication-specific guidelines for appropriate target ranges for prosthetic heart valve replacement. Current interpretive data was last revised on 2019. Blood 08/24/2024 1:12 AM CDT 08/24/2024 1:53 AM CDT Karlos Hargrove MD LAB BLOOD ORDERABLES Final Result Performing Organization Address City/[facility] Co de Phone Number [facility] [place] [address] * Type and screen (08/24/2024 1:12 AM CDT) Pathologist [facility] Yehuda, indirect Negative Comment:Patient has previous antibody history ABO Rh A Positive [facility] Blood 08/24/2024 1:12 AM CDT 08/24/2024 1:36 AM CDT Narrative [facility] - 08/24/2024 2:36 AM CDT Has the patient had Daratumumab or Isatuximab in the past 6 months?->Unknown Karlos Hargrove MD LAB BLOOD BANK [place] [address] * (ABNORMAL) Uric acid (08/24/2024 1:12 AM CDT) Pathologist [facility] Uric acid 9.5(H) 3.0 - 8.0 mg/dL Blood 08/24/2024 1:12 AM CDT 08/24/2024 1:35 AM CDT Narrative [facility] - 08/24/2024 2:47 AM CDT Friday and only. Morning draw. . us Karlos Hargrove MD LAB BLOOD ORDERABLES Final Result Performing Organization Address City/[facility] Co de Phone Number [facility] [place] [address] * Phosphorus (08/24/2024 1:12 AM CDT) Phosphorus, pl 4.5 2.3 - 4.5 mg/dL Blood 08/24/2024 1:12 AM CDT 08/24/2024 1:35 AM CDT us Karlos Hargrove MD LAB BLOOD ORDERABLES Final Result Performing Organization Address City/[facility] Co de Phone Number [facility] [place] [address] * Magnesium (08/24/2024 1:12 AM CDT) Magnesium 2.0 1.4 - 2.5 mg/dL Blood 08/24/2024 1:12 AM CDT 08/24/2024 1:35 AM CDT us Karlos Hargrove MD LAB BLOOD ORDERABLES Final Result Performing Organization Address City/[facility] [place] [place] [address] * Lactate dehydrogenase (LD) (08/24/2024 1:12 AM CDT) Lactate dehydrogenase (LDH) 226 100 - 250 Units/L Blood 08/24/2024 1:12 AM CDT 08/24/2024 1:35 AM CDT Narrative [facility] - 08/24/2024 2:47 AM CDT Friday and only. Morning draw. Karlos Hargrove MD LAB BLOOD ORDERABLES Final Result [facility] [place] [address] * (ABNORMAL) Comprehensive metabolic panel (08/24/2024 1:12 AM CDT) Sodium 148(H) 135 - 145 mmol/L Potassium, pl 3.6 3.3 - 4.9 mmol/L [facility] Chloride 111(H) 97 - 110 mmol/L [facility] CO2 25 22 - 32 mmol/L [facility] Anion gap 12 2 - 15 mmol/L [facility] BUN 56(H) 6 - 25 mg/dL [facility] Creatinine 3.16(H) 0.80 - 1.30 mg/dL [facility] Glucose 102 70 - 199 mg/dL [facility] Comment: Interpretive Data Fasting glucose >/= [...] 2022. Calcium 8.5 8.5 - 10.3 mg/dL [facility] Bilirubin, total 0.4 0.1 - 1.2 mg/dL [facility] Protein, pl 5.7(L) 6.5 - 8.5 g/dL [facility] Albumin 3.6 3.5 - 5.0 g/dL [facility] Alk phos 62 40 - 130 Units/L [facility] ALT 16 7 - 55 Units/L [facility] AST 11 10 - 50 Units/L [facility] Blood 08/24/2024 1:12 AM CDT 08/24/2024 1:35 AM CDT Karlos Hargrove MD LAB BLOOD ORDERABLES Final Result [facility] [place] [address] * US Kidney Complete (08/23/2024 8:12 PM [...] it. Electronically signed by: Qian Barnes M.D. Kinga Jones NP IMG US PROCEDURES Final R esult * (ABNORMAL) Urinalysis reflex to microscopic (08/23/2024 7:01 PM CDT) Color, ur Straw Yellow Clarity, ur Clear Clear [facility] Specific gravity, ur 1.011 1.003 - 1.030 [facility] pH, urine 5.5 [facility] Comment: Interpretive Data U rine pH is affected by diet, medications, systemic acid-base disturbances, and renal tubular function. pH may affect urinary stone formation. For example, urine pH below 6.0 may help reduce the tendency for calcium phosphate stones and pH greater than 6.0 may reduce the tendency for uric acid stone formation. Source: [facility] Current Interpretive Data was last revised on 2017 Protein, ur ql Negative Negative [facility] Glucose, ur ql Negative Negative [facility] Ketones, ur Negative Negative [facility] Bilirubin, ur Negative Negative [facility] Blood, ur 2+(A) Negative [facility] Urobilinogen, ur <2.0 <2.0 mg/dL [facility] Nitrite, ur Negative Negative [facility] Leukocyte esterase, ur Trace(A) Negative [facility] UA reflex comment Reflex to microscopic UA will be performed. [facility] Urine 08/23/2024 7:01 PM CDT 08/23/2024 7:15 PM CDT Kinga Jones NP LAB URINE ORDERABLES [place] nicole Result [facility] [place] [address] * Protein / creatinine ratio, urine, random (08/23/2024 7:01 PM CDT) Protein, ur, quant 6.4 mg/dL Comment: Interpretive Data No reference range established. Current interpretive data was last revised 2018. Creatinine Ur 74.0 mg/dL [facility] Comment: Interpretive Data No reference range established. Current interpretive data was last revised 2018. Protein/creatinin e ratio 86.5 0.0 - 180.0 mg/g CR [facility] Urine 08/23/2024 7:01 PM CDT 08/23/2024 7:28 PM CDT Kinga Jones [employer] LAB URINE ORDERABLES [place] l Result Performing Organization Address [facility] Co de Phone Number [facility] [place] [address] * (ABNORMAL) Urinalysis, microscopic only (08/23/2024 7:01 PM CDT) Pathologist [facility] WBC, ur 0-5 0 - 5 /HPF RBC, ur 6-10(A) 0 - 2 /HPF [facility] Urine 08/23/2024 7:01 PM CDT 08/23/2024 7:15 PM CDT Kinga Jones [employer] LAB URINE ORDERABLES [place] l Result Performing Organization Address City/[facility]/ZIP Co de Phone Number [facility] [place] [address] * Urine culture Urine, clean voided (08/23/2024 7:01 PM CDT) Pathologist [facility] Report Final Report: Less than 100,000 colonies/mL (clinically insignificant growth based on current clinical standards) Organism (CLINICALLY INSIGNIFICANT GROWTH [facility] Urine, clean voided 08/23/2024 7:01 PM CDT 08/23/2024 8:52 PM CDT Narrative [facility] - 08/25/2024 8:02 AM CDT Indications for Culture:->Other (specify) Other Indication:->elevated creatinine Specimen received in a sterile container. Testing performed by [facility] ([phone]) Kinga Jones NP LAB MICROBIOLOGY - GENERA L ORDERABLES Final Result Performing Organization Address City/[facility]/ZIP Co de Phone Number [facility] [place] [address] * Immunotyping, serum with interpretation (08/23/2024 6:04 PM CDT) Pathologist [facility] Immunosubtraction Please see comment Comment: NO PARAPROTEIN DETECTED Reviewed and signed by Fernando Nunez MD, PhD 08/24/2024 Blood 08/23/2024 6:04 PM CDT 08/23/2024 6:13 PM CDT Hermelindo Butler MD LAB BLOOD ORDER ELANA Final Result Performing Organization Address [facility] Co de Phone Number [facility] [place] [address] * (ABNORMAL) eGFR (08/23/2024 6:04 PM CDT) Pathologist [facility] eGFR 19(L) >=60 mL/min/1. 73 m2 Comment: [...] MD LAB BLOOD ORDER ELANA Final Result [facility] [place] [address] * (ABNORMAL) Differential, auto (08/23/2024 6:04 PM CDT) Neutrophil abs 6.5 1.5 - 6.5 K/cumm Imm gran abs 0.0 0.0 - 0.1 K/cumm [facility] Lymphocyte abs 0.7(L) 0.8 - 3.3 K/cumm [facility] Monocyte abs 0.6 0.2 - 0.8 K/cumm [facility] Eosinophil abs 0.6(H) 0.0 - 0.5 K/cumm [facility] Basophil abs 0.0 0.0 - 0.1 K/cumm [facility] Neutrophil pct 77.0 % [facility] Comment: Interpretive Data Percent cell count reference ranges are not reported, since discordance with absolute values may lead to misinterpretation of CBC data. Current Interpretive Data was last revised on 2017. Imm gran pct 0.5 % [facility] Comment: Interpretive Data Percent cell count reference ranges are not reported, since discordance with absolute values may lead to misinterpretation of CBC data. Current Interpretive Data was last revised on 2017. Lymphocyte pct 8.3 % [facility] Comment: Interpretive Data Percent cell count reference ranges are not reported, since discordance with absolute values may lead to misinterpretation of CBC data. Current Interpretive Data was last revised on 2017. Monocyte pct 7.3 % [facility] Comment: Interpretive Data Percent cell count reference ranges are not reported, since discordance with absolute values may lead to misinterpretation of CBC data. Current Interpretive Data was last revised on 2017. Eosinophil pct 6.5 % [facility] Comment: Interpretive Data Percent cell count reference ranges are not reported, since discordance with absolute values may lead to misinterpretation of CBC data. Current Interpretive Data was last revised on 2017. Basophil pct 0.4 % [facility] Comment: Interpretive Data Percent cell count reference ranges are not reported, since discordance with absolute values may lead to misinterpretation of CBC data. Current Interpretive Data was last revised on 2017. Blood 08/23/2024 6:04 PM CDT 08/23/2024 6:12 PM CDT us Hermelindo Butler MD LAB BLOOD ORDER ELANA Final Result [facility] [place] [address] * (ABNORMAL) Immunoglobulin free light chains (08/23/2024 6:04 PM CDT) [place]/Lambda ratio [facility] <0.40 0.26 - 1.65 Comment: Interpretive Data The Binding Site FreeLite assay procedure was used. Results from different manufacturers or methods may not be comparable. Serial testing should be performed using the same methods and instrumentation. Current Interpretive Data was last revised on 2023. [place] free light chain [facility] <0.06(L) 0.33 - 1.94 mg/dL [facility] Comment: Interpretive Data The Binding Site FreeLite assay procedure was used. Results from different manufacturers or methods may not be comparable. Serial testing should be performed using the same methods and instrumentation. Current Interpretive Data was last revised on 2023. Lambda free light chain [facility] 0.15(L) 0.57 - 2.63 mg/dL [facility] [...] ORDER ELANA Final Result Performing Organization Address City/[facility] Co de Phone Number [facility] [place] [address] * (ABNORMAL) CBC with auto differential (08/23/2024 6:04 PM CDT) WBC 8.5 3.8 - 9.9 K/cumm Hgb 11.8(L) 13.0 - 17.5 g/dL [facility] Hct 35.6(L) 38.9 - 50.3 % [facility] Plt 131(L) 150 - 400 K/cumm [facility] MPV 9.8 9.1 - 12.3 fL [facility] RBC 3.78(L) 4.30 - 5.80 M/cumm [facility] MCV 94.2 81.3 - 96.4 fL [facility] MCH 31.2 27.1 - 33.3 pg [facility] MCHC 33.1 32.3 - 35.7 g/dL [facility] RDW CV 15.2(H) 11.1 - 14.9 % [facility] RDW SD 51.2(H) 35.7 - 48.1 fL [facility] NRBC abs 0.00 0.00 - 0.01 K/cumm [facility] Blood 08/23/2024 6:04 PM CDT 08/23/2024 6:12 PM CDT Hermelindo Butler MD LAB BLOOD ORDER ELANA Final Result Performing Organization Address City/[facility]/ZIP Co de Phone Number [facility] [place] [address] * (ABNORMAL) Uric acid (08/23/2024 6:04 PM CDT) Pathologist [facility] Uric acid 9.5(H) 3.0 - 8.0 mg/dL Blood 08/23/2024 6:04 PM CDT 08/23/2024 6:13 PM CDT Hermelindo Butler MD LAB BLOOD ORDER ELANA Final Result [facility] [place] [address] * (ABNORMAL) Protein electrophoresis with reflex, serum with interpretation (08/23/2024 6:04 PM CDT) [facility] Protein, sr 5.9(L) 6.2 - 8.2 g/dL Albumin 3.9 3.2 - 5.0 g/dL [facility] Alpha-1 globulin 0.4 0.2 - 0.4 g/dL [facility] Alpha-2 globulin 0.7 0.5 - 1.0 g/dL [facility] Beta-1 globulin 0.4 0.3 - 0.6 g/dL [facility] Beta-2 globulin 0.3 0.2 - 0.6 g/dL [facility] Gamma globulin 0.2(L) 0.5 - 1.7 g/dL [facility] SPEP interp Please see comment [facility] Comment: No apparent monoclonal peak Decreased gamma globulins Electrophoretic pattern appears similar to previous sample 08/04/24 See immunotyping for further information Reviewed and signed by Fernando Nunez MD, PhD 08/24/2024 Blood 08/23/2024 6:04 PM CDT 08/23/2024 6:13 PM CDT Hermelindo Butler MD LAB BLOOD ORDER ELANA Final Result [facility] [place] [address] * (ABNORMAL) Phosphorus (08/23/2024 6:04 PM CDT) [facility] Phosphorus, pl 4.7(H) 2.3 - 4.5 mg/dL Blood 08/23/2024 6:04 PM CDT 08/23/2024 6:13 PM CDT Hermelindo Butler MD LAB BLOOD ORDER ELANA Final Result [facility] [place] [address] * Magnesium (08/23/2024 6:04 PM CDT) [facility] Magnesium 1.9 1.4 - 2.5 mg/dL Blood 08/23/2024 6:04 PM CDT 08/23/2024 6:13 PM CDT Hermelindo Butler MD LAB BLOOD ORDER ELANA Final Result Performing Organization Address City/[facility] Co de Phone Number [facility] [place] [address] * Lactate dehydrogenase (LD) (08/23/2024 6:04 PM CDT) [facility] Lactate dehydrogenase (LDH) 198 100 - 250 Units/L Blood 08/23/2024 6:04 PM CDT 08/23/2024 6:13 PM CDT Hermelindo Butler MD LAB BLOOD ORDER ELANA Final Result Performing Organization Address City/[facility] Co de Phone Number [facility] [place] [address] * (ABNORMAL) IgA (08/23/2024 6:04 PM CDT) [facility] Immunoglobulin A <50(L) 70 - 400 mg/dL Blood 08/23/2024 6:04 PM CDT 08/23/2024 6:13 PM CDT Hermelindo Butler MD LAB BLOOD ORDER ELANA Final Result Performing Organization Address [facility] Co de Phone Number [facility] [place] [address] * (ABNORMAL) IgM (08/23/2024 6:04 PM CDT) [facility] Immunoglobulin M <25(L) 40 - 230 mg/dL Blood 08/23/2024 6:04 PM CDT 08/23/2024 6:13 PM CDT Hermelindo Butler MD LAB BLOOD ORDER ELANA Final Result Performing Organization Address [facility] de Phone Number [facility] [place] [address] * (ABNORMAL) IgG (08/23/2024 6:04 PM CDT) [facility] Immunoglobulin G <300(L) 700 - 1,600 mg/dL Blood 08/23/2024 6:04 PM CDT 08/23/2024 6:13 PM CDT Hermelindo Butler MD LAB BLOOD ORDER ELANA Final Result Performing Organization Address [facility] [place] [address] * (ABNORMAL) Comprehensive metabolic panel (08/23/2024 6:04 PM CDT) [facility] Sodium 146(H) 135 - 145 mmol/L Potassium, pl 3.8 3.3 - 4.9 mmol/L [facility] Chloride 107 97 - 110 mmol/L [facility] CO2 26 22 - 32 mmol/L [facility] Anion gap 13 2 - 15 mmol/L [facility] BUN 58(H) 6 - 25 mg/dL [facility] Creatinine 3.37(H) 0.80 - 1.30 mg/dL [facility] Glucose 89 70 - 199 mg/dL [facility] Comment: Interpretive Data Fasting glucose >/= [...] 2022. Calcium 8.9 8.5 - 10.3 mg/dL [facility] Bilirubin, total 0.4 0.1 - 1.2 mg/dL [facility] Protein, pl 6.2(L) 6.5 - 8.5 g/dL [facility] Albumin 4.0 3.5 - 5.0 g/dL [facility] Alk phos 68 40 - 130 Units/L [facility] ALT 16 7 - 55 Units/L [facility] AST 12 10 - 50 Units/L [facility] Blood 08/23/2024 6:04 PM CDT 08/23/2024 6:13 PM CDT Hermelindo Butler MD LAB BLOOD ORDER ELANA Final Result [facility] [place] [address] * SCAN - LABS (08/20/2024) us Provider Scanning Final Result * SCAN - LABS (08/10/2024) us Provider Scanning Final Result * US Kidney Complete (08/06/2024 2:42 PM [employer]) Anatomical Region Laterality Modality Kidney N/A Ultrasound 08/06/2024 3:27 PM [employer] Impressions 08/06/2024 3:27 PM ASSOCIATE PROFESSOR OF [employer] 1. Mild nephromegaly with mild to moderate hydronephrosis bilaterally. 2. Incomplete bladder emptying with post void bladder residual of 397 mL. Electronically signed by: Dylan Tinajero M.D. Narrative 08/06/2024 3:27 PM ASSOCIATE PROFESSOR [employer] EXAMINATION: COMPLETE RENAL SONOGRAM HISTORY: Rising creatinine. [...] by: Dylan Tinajero M.D. Hermelindo Butler MD [facility] US PROCEDUR ES Final Result * (ABNORMAL) Urinalysis reflex to microscopic (08/06/2024 9:19 AM ASSOCIATE PROFESSOR [employer]) Color, ur Straw Yellow Clarity, ur Clear Clear [facility] Specific gravity, ur 1.013 1.003 - 1.030 [facility] pH, urine 5.5 [facility] Comment: Interpretive Data U rine pH is affected by diet, medications, systemic acid-base disturbances, and renal tubular function. pH may affect urinary stone formation. For example, urine pH below 6.0 may help reduce the tendency for calcium phosphate stones and pH greater than 6.0 may reduce the tendency for uric acid stone formation. Source: [facility] Current Interpretive Data was last revised on 2017 Protein, ur ql Negative Negative [facility] Glucose, ur ql Negative Negative [facility] Ketones, ur Negative Negative [facility] Bilirubin, ur Negative Negative [facility] Blood, ur 3+(A) Negative [facility] Urobilinogen, ur <2.0 <2.0 mg/dL [facility] Nitrite, ur Negative Negative [facility] Leukocyte esterase, ur Trace(A) [facility] UA reflex comment Reflex to microscopic UA will be performed. [facility] Urine 08/06/2024 9:19 AM ASSOCIATE PROFESSOR [employer] 08/06/2024 9:19 AM ASSOCIATE PROF[employer]OR [employer] Lyndsey Fagan NP LAB URINE ORDERABLES [place] nicole Result [facility] [place] [address] * Protein / creatinine ratio, urine, random (08/06/2024 9:19 AM ASSOCIATE PROFESSOR [employer]) Pathologist [facility] Protein, ur, quant 7.9 mg/dL Comment: Interpretive Data No reference range established. Current interpretive data was last revised 2018. Creatinine Ur 77.4 mg/dL [facility] Comment: Interpretive Data No reference range established. Current interpretive data was last revised 2018. Protein/creatinin e ratio 102.1 0.0 - 180.0 mg/g CR [facility] Urine 08/06/2024 9:19 AM ASSOCIATE PROFESSOR [employer] 08/06/2024 9:41 AM ASSOCIATE PROFESSOR [employer] Lyndsey Fagan SODA DIALYZER LAB URINE ORDERABLES Angeles l Result Performing Organization Address [facility] Co de Phone Number [facility] [place] [address] * (ABNORMAL) Urinalysis, microscopic only (08/06/2024 9:19 AM ASSOCIATE PROFESSOR [employer]) WBC, ur 6-10(A) 0 - 5 /HPF RBC, ur 21-50(A) 0 - 2 /HPF [facility] Bacteria, ur Trace(A) [facility] Mucous, ur Present(A) [facility] Urine 08/06/2024 9:19 AM ASSOCIATE PROF[employer]OR [employer] 08/06/2024 9:19 AM ASSOCIATE PROF[employer]OR [employer] Lyndsey Fagan LAB URINE ORDERABLES [place] l Result Performing Organization Address [facility] de Phone Number [facility] Department [place] [address] * (ABNORMAL) eGFR (08/06/2024 7:43 AM ASSOCIATE PROFESSOR [employer]) Pathologist [facility] [...] last reviewed 2021. Blood 08/06/2024 7:43 AM ASSOCIATE PROF[employer]OR [employer] 08/06/2024 7:52 AM ASSOCIATE PROF[employer]OR [employer] Hermelindo Butler MD LAB BLOOD ORDER ELANA Final Result [facility] One [facility] [place] [address] * (ABNORMAL) Differential, auto (08/06/2024 7:43 AM ASSOCIATE PROFESSOR [employer]) Neutrophil abs 5.4 1.5 - 6.5 K/cumm Comment:Testing performed by : [facility], [address] [place] [phone] Lymphocyte abs 0.8 0.8 - 3.3 K/cumm [facility] Comment:Testing performed by : [facility], [address] [place] [phone] Monocyte abs 0.5 0.2 - 0.8 K/cumm CERNER BJ Comment:Testing performed by : [facility], [address] [place] [phone] Eosinophil abs 0.7(H) 0.0 - 0.5 K/cumm CERNER BJ Comment:Testing performed by : [facility], [address] [place] [phone] Basophil abs 0.0 0.0 - 0.1 K/cumm CERNER BJ Comment:Testing performed by : [facility], [address] [place] [phone] Neutrophil pct 72.4 % [facility]ER [facility] Comment: Interpretive Data Percent cell count reference ranges are not reported, since discordance with absolute values may lead to misinterpretation of CBC data. Current Interpretive Data was last revised on 2017. Testing performed by: [facility], [address] [place] [phone] Lymphocyte pct 10.4 % [facility]ER [facility] Comment: Interpretive Data Percent cell count reference ranges are not reported, since discordance with absolute values may lead to misinterpretation of CBC data. Current Interpretive Data was last revised on 2017. Testing performed by: [facility], [address] [place] [phone] Monocyte pct 7.3 % [facility] Comment: Interpretive Data Percent cell count reference ranges are not reported, since discordance with absolute values may lead to misinterpretation of CBC data. Current Interpretive Data was last revised on 2017. Testing performed by: [facility], [address] [place] [phone] Eosinophil pct 9.4 % [facility] Comment: Interpretive Data Percent cell count reference ranges are not reported, since discordance with absolute values may lead to misinterpretation of CBC data. Current Interpretive Data was last revised on 2017. Testing performed by: [facility], [address] [place] [phone] Basophil pct 0.5 % [facility] Comment: Interpretive Data Percent cell count reference ranges are not reported, since discordance with absolute values may lead to misinterpretation of CBC data. Current Interpretive Data was last revised on 2017. Testing performed by: [facility], [address] [place] [phone] Blood 08/06/2024 7:43 AM ASSOCIATE PROFESSOR [employer] 08/06/2024 7:51 AM ASSOCIATE PROFESSOR [employer] Hermelindo Butler MD LAB BLOOD ORDER ELANA Final Result [facility] [place] [address] * (ABNORMAL) CBC with auto differential (08/06/2024 7:43 AM ASSOCIATE PROFESSOR [employer]) WBC 7.5 3.8 - 9.9 K/cumm Comment:Testing performed by : [facility], [address] [place] [phone] Hgb 13.7 13.0 - 17.5 g/dL MT [facility]TE Comment:Testing performed by : [facility], [address] [place] [address] Hct 40.6 38.9 - 50.3 % C[facility]ER [facility]J Comment:Testing performed by : [facility], [address] [place], [place] [phone] Plt 169 150 - 400 K/cumm [facility]ER BJ Comment:Testing performed by : [facility], [address] [place], [place] [phone] MPV 7.5 6.8 - 10.4 fL [facility]ER BJ Comment:Testing performed by : [facility], [address] [place], [place] [phone] RBC 4.37 4.30 - 5.80 M/cumm [facility]ER BJ Comment:Testing performed by : [facility], [address] [place], [place] [phone] MCV 92.7 81.3 - 96.4 fL [facility]ER BJ Comment:Testing performed by : [facility], [address] [place], [place] [phone] MCH 31.3 27.1 - 33.3 pg [facility]ER BJ Comment:Testing performed by : [facility], [address] [place] [address] MCHC 33.8 32.3 - 35.7 g/dL [facility] Comment:Testing performed by : [facility], [address] [place] [address] RDW CV 16.5(H) 11.1 - 14.9 % [facility] Comment:Testing performed by : [facility], [address] [place] [address] NRBC abs 0.00 0.00 - 0.01 K/cumm [facility]ER BJ Comment:Testing performed by : [facility], [address] [place], [place] [phone] Blood 08/06/2024 7:43 AM ASSOCIATE PROFESSOR [employer] 08/06/2024 7:51 AM ASSOCIATE PROF[employer]OR [employer] Hermelindo Butler MD LAB BLOOD ORDER ELANA Final Result Performing Organization Address City/[facility] Co de Phone Number [facility] [place] [address] * (ABNORMAL) PSA diagnostic (08/06/2024 7:43 AM ASSOCIATE PROFESSOR [employer]) Pathologist [facility] PSA-Total 6.28(H) <=6.20 ng/mL Comment: Interpretive Data [...] last revised 21. Blood 08/06/2024 7:43 AM ASSOCIATE PROFESSOR [employer] 08/06/2024 7:52 AM ASSOCIATE PROFESSOR [employer] Hermelindo Butler MD LAB BLOOD ORDER ELANA Final Result Performing Organization Address [facility] Co de Phone Number [facility] [place] [address] * Lactate dehydrogenase (LD) (08/06/2024 7:43 AM ASSOCIATE PROFESSOR [employer]) [facility] Lactate dehydrogenase (LDH) 161 100 - 250 Units/L Blood 08/06/2024 7:43 AM ASSOCIATE PROFESSOR [employer] 08/06/2024 7:52 AM ASSOCIATE PROFESSOR [employer] Hermelindo Butler MD LAB BLOOD ORDER ELANA Final Result Performing Organization Address City/[facility] Co de Phone Number [facility] [place] [address] * (ABNORMAL) Lipid panel (08/06/2024 7:43 AM ASSOCIATE PROFESSOR [employer]) Cholesterol 128 30 - 199 mg/dL Comment: [...] revised on 2018. Triglycerides 149 <=149 mg/dL [facility] Comment: Interpretive Data Ages < or [...] revised on 2018. HDL 38(L) >=40 mg/dL [facility] Comment: Interpretive Data Ages < or [...] on 2018. LDL, calculated 64 <=129 mg/dL [facility] Comment: Interpretive Data Ages < or [...] revised on 2024. Non-HDL Cholesterol 90 mg/dL [facility] Comment: Interpretive Data Ages < or [...] last revised on 2018. Chol/HDL ratio 3 [facility] Blood 08/06/2024 7:43 AM ASSOCIATE PROFESSOR [employer] 08/06/2024 7:52 AM ASSOCIATE PROFESSOR [employer] Hermelindo Butler MD LAB BLOOD ORDER ELANA Final Result [facility] [place] [address] * (ABNORMAL) Comprehensive metabolic panel (08/06/2024 7:43 AM ASSOCIATE PROFESSOR [employer]) Sodium 145 135 - 145 mmol/L Potassium, pl 4.2 3.3 - 4.9 mmol/L [facility] Chloride 108 97 - 110 mmol/L [facility] CO2 30 22 - 32 mmol/L [facility] Anion gap 7 2 - 15 mmol/L [facility] BUN 51(H) 6 - 25 mg/dL [facility] Creatinine 2.21(H) 0.80 - 1.30 mg/dL [facility] Glucose 113 70 - 199 mg/dL [facility] Comment: Interpretive Data Fasting glucose >/= [...] 2022. Calcium 9.2 8.5 - 10.3 mg/dL [facility] Bilirubin, total 0.5 0.1 - 1.2 mg/dL [facility] Protein, pl 6.2(L) 6.5 - 8.5 g/dL [facility] Albumin 4.1 3.5 - 5.0 g/dL [facility] Alk phos 61 40 - 130 Units/L [facility] ALT 15 7 - 55 Units/L [facility] AST 16 10 - 50 Units/L [facility] Blood 08/06/2024 7:43 AM ASSOCIATE PROFESSOR [employer] 08/06/2024 7:52 AM ASSOCIATE PROFESSOR [employer] Hermelindo Butler MD LAB BLOOD ORDER ELANA Final Result [facility] [place] [address] * aPTT (08/03/2024 9:21 AM ASSOCIATE PROFESSOR [employer]) aPTT 31 28 - 38 sec Comment: Interpretive Data Heparin therapeutic range: 66.0 - 100.0 seconds. Range based on correlation with therapeutic heparin activity range of 0.3 - 0.7 Units/mL. Current interpretive data was last revised on 2023. Blood 08/03/2024 9:21 AM ASSOCIATE PROFESSOR [employer] 08/03/2024 9:47 AM ASSOCIATE PROFESSOR [employer] Hermelindo Butler MD LAB BLOOD ORDER ELANA Final Result Performing Organization Address City/[facility] Co de Phone Number [facility] [place] [address] * Protime-INR (08/03/2024 9:21 AM ASSOCIATE PROFESSOR [employer]) PT 11.5 9.7 - 13.0 sec INR 1.06 0.90 - 1.20 [facility] Comment: Interpretive data Oral anticoagulant therapeutic ranges: Venous thromboembolism prophylaxis or treatment: 2.0-3.0 CARDIOLOGY Standard range: 2.0-3.0 High-intensity range: 2.5-3.5 Refer to indication-specific guidelines for appropriate target ranges for prosthetic heart valve replacement. Current interpretive data was last revised on 2019. Blood 08/03/2024 9:21 AM ASSOCIATE PROFESSOR [employer] 08/03/2024 9:47 AM ASSOCIATE PROFESSOR [employer] Hermelindo Butler MD LAB BLOOD ORDER ELANA Final Result Performing Organization Address [facility] de Phone Number [facility] [place] [address] * Immunotyping, serum with interpretation (08/03/2024 7:40 AM ASSOCIATE PROFESSOR [employer]) Pathologist [facility] Immunosubtraction Please see comment Comment: NO PARAPROTEIN DETECTED Reviewed and signed by Hermelindo Mcnulty MD 08/04/2024 Blood 08/03/2024 7:40 AM ASSOCIATE PROFESSOR [employer] 08/03/2024 8:24 AM ASSOCIATE PROFESSOR [employer] Hermelindo Butler MD LAB BLOOD ORDER ELANA Final Result Performing Organization Address City/[facility] Co de Phone Number [facility] [place] [address] * (ABNORMAL) eGFR (08/03/2024 7:40 AM ASSOCIATE PROFESSOR [employer]) Pathologist [facility] eGFR 37(L) >=60 mL/min/1. 73 m2 Comment: [...] last reviewed 2021. Blood 08/03/2024 7:40 AM ASSOCIATE PROFESSOR [employer] 08/03/2024 7:49 AM ASSOCIATE PROFESSOR [employer] Hermelindo Butler MD LAB BLOOD ORDER ELANA Final Result [facility] [place] [address] * (ABNORMAL) Differential, auto (08/03/2024 7:40 AM ASSOCIATE PROFESSOR [employer]) [facility] Neutrophil abs 5.6 1.5 - 6.5 K/cumm Comment:Testing performed by : [facility], [address] [place] [phone] Lymphocyte abs 0.9 0.8 - 3.3 K/cumm [facility]ARTE Comment:Testing performed by : [facility], [address] [place] [phone] Monocyte abs 0.6 0.2 - 0.8 K/cumm [facility] Comment:Testing performed by : [facility], [address] [place] [phone] Eosinophil abs 0.8(H) 0.0 - 0.5 K/cumm [facility] Comment:Testing performed by : [facility], [address] [place] [phone] Basophil abs 0.0 0.0 - 0.1 K/cumm [facility] Comment:Testing performed by : [facility], [address] [place] [phone] Neutrophil pct 70.4 % [facility] Comment: Interpretive Data Percent cell count reference ranges are not reported, since discordance with absolute values may lead to misinterpretation of CBC data. Current Interpretive Data was last revised on 2017. Testing performed by: [facility], [address] [place] [phone] Lymphocyte pct 11.2 % [facility] Comment: Interpretive Data Percent cell count reference ranges are not reported, since discordance with absolute values may lead to misinterpretation of CBC data. Current Interpretive Data was last revised on 2017. Testing performed by: [facility], [address] [place] [phone] Monocyte pct 7.7 % [facility] Comment: Interpretive Data Percent cell count reference ranges are not reported, since discordance with absolute values may lead to misinterpretation of CBC data. Current Interpretive Data was last revised on 2017. Testing performed by: [facility], [address] [place] [phone] Eosinophil pct 10.1 % [facility] Comment: Interpretive Data Percent cell count reference ranges are not reported, since discordance with absolute values may lead to misinterpretation of CBC data. Current Interpretive Data was last revised on 2017. Testing performed by: [facility], [address] [place] [phone] Basophil pct 0.6 % [facility] Comment: Interpretive Data Percent cell count reference ranges are not reported, since discordance with absolute values may lead to misinterpretation of CBC data. Current Interpretive Data was last revised on 2017. Testing performed by: [facility], [address] [place] [phone] Blood 08/03/2024 7:40 AM ASSOCIATE PROFESSOR [employer] 08/03/2024 7:47 AM ASSOCIATE PROFESSOR [employer] Hermelindo Butler MD LAB BLOOD ORDER ELANA Final Result [facility] [place] [address] * (ABNORMAL) Immunoglobulin free light chains (08/03/2024 7:40 AM ASSOCIATE PROFESSOR [employer]) [place]/Lambda ratio [facility] See Comment 0.26 - 1.65 Comment: Unable to calculate exact result. Interpretive Data The Binding Site FreeLite assay procedure was used. Results from different manufacturers or methods may not be comparable. Serial testing should be performed using the same methods and instrumentation. Current Interpretive Data was last revised on 2023. [place] free light chain [facility] <0.06(L) 0.33 - 1.94 mg/dL [facility] Comment: Interpretive Data The Binding Site FreeLite assay procedure was used. Results from different manufacturers or methods may not be comparable. Serial testing should be performed using the same methods and instrumentation. Current Interpretive Data was last revised on 2023. Lambda free light chain [facility] <0.13(L) 0.57 - 2.63 mg/dL [facility] Comment: Interpretive Data The Binding Site FreeLite assay procedure was used. Results from different manufacturers or methods may not be comparable. Serial testing should be performed using the same methods and instrumentation. Current Interpretive Data was last revised on 2023. Blood 08/03/2024 7:40 AM ASSOCIATE PROFESSOR [employer] 08/03/2024 8:24 AM ASSOCIATE PROFESSOR [employer] Hermelindo Butler MD LAB BLOOD ORDER ELANA Final Result [facility] [place] [address] * (ABNORMAL) CBC with auto differential (08/03/2024 7:40 AM ASSOCIATE PROFESSOR [employer]) WBC 7.9 3.8 - 9.9 K/cumm Comment:Testing performed by : [facility], [address] [place] [address] Hgb 13.7 13.0 - 17.5 g/dL [facility] Comment:Testing performed by : [facility], [address] [place] [address] Hct 41.5 38.9 - 50.3 % [facility] Comment:Testing performed by : [facility], [address] [place] [address] Plt 163 150 - 400 K/cumm [facility] Comment:Testing performed by : [facility], [address] [place] [address] MPV 7.8 6.8 - 10.4 fL [facility] Comment:Testing performed by : [facility], [address] [place] [address] RBC 4.50 4.30 - 5.80 M/cumm [facility] Comment:Testing performed by : [facility], [address] [place] [address] MCV 92.1 81.3 - 96.4 fL [facility] Comment:Testing performed by : [facility], [address] [place] [address] MCH 30.4 27.1 - 33.3 pg [facility] Comment:Testing performed by : [facility], [address] [place] [address] MCHC 33.0 32.3 - 35.7 g/dL [facility] Comment:Testing performed by : [facility], [address] [place] [address] RDW CV 16.6(H) 11.1 - 14.9 % [facility] Comment:Testing performed by : [facility], [address] [place] [phone] NRBC abs 0.00 0.00 - 0.01 K/cumm [facility] Comment:Testing performed by : [facility], [address] [place] [phone] Blood 08/03/2024 7:40 AM ASSOCIATE PROFESSOR [employer] 08/03/2024 7:47 AM ASSOCIATE PROFESSOR [employer] Hermelindo Butler MD LAB BLOOD ORDER ELANA Final Result [facility] [place] [address] * (ABNORMAL) Protein electrophoresis with reflex, serum with interpretation (08/03/2024 7:40 AM ASSOCIATE PROFESSOR [employer]) Protein, sr 5.7(L) 6.2 - 8.2 g/dL Albumin 3.8 3.2 - 5.0 g/dL [facility] Alpha-1 globulin 0.3 0.2 - 0.4 g/dL [facility] Alpha-2 globulin 0.6 0.5 - 1.0 g/dL [facility] Beta-1 globulin 0.4 0.3 - 0.6 g/dL [facility] Beta-2 globulin 0.3 0.2 - 0.6 g/dL [facility] Gamma globulin 0.2(L) 0.5 - 1.7 g/dL [facility] SPEP interp Please see comment [facility] Comment: No apparent monoclonal peak Decreased gamma globulins Electrophoretic pattern appears similar to previous sample 07/14/24 *See immunotyping for further information Reviewed and signed by Hermelindo Mcnulty MD 08/04/2024 Blood 08/03/2024 7:40 AM ASSOCIATE PROFESSOR [employer] 08/03/2024 8:24 AM ASSOCIATE PROFESSOR [employer] Hermelindo Butlre MD LAB BLOOD ORDER ELANA Final Result [facility] [place] [address] * Magnesium (08/03/2024 7:40 AM ASSOCIATE PROFESSOR [employer]) Pathologist [facility] Magnesium 2.2 1.4 - 2.5 mg/dL Blood 08/03/2024 7:40 AM ASSOCIATE PROFESSOR [employer] 08/03/2024 9:36 AM ASSOCIATE PROFESSOR [employer] Hermelindo Butler MD LAB BLOOD ORDER ELANA Final Result Performing Organization Address City/[facility] [place] [address] * Lactate dehydrogenase (LD) (08/03/2024 7:40 AM ASSOCIATE PROFESSOR [employer]) [facility] Lactate dehydrogenase (LDH) 172 100 - 250 Units/L Blood 08/03/2024 7:40 AM ASSOCIATE PROFESSOR [employer] 08/03/2024 7:49 AM ASSOCIATE PROFESSOR [employer] Result [facility] Hermelindo Butler MD LAB BLOOD ORDER ELANA Final Result Performing Organization Address City/[facility] [place] [address] * (ABNORMAL) Hemoglobin A1c (08/03/2024 7:40 AM ASSOCIATE PROFESSOR [employer]) [facility] Hgb A1C 5.8(H) 4.0 - 5.6 % Estimated Average Glucose 120 mg/dL [facility] Comment: The ADA recommends reporting an estimated Average Glucose (eAG) with all Hemoglobin A1c results using the equation derived from a study of 507 normal and diabetic adults. Minority populations were underrepresented and children were not included. (Diabetes Care 2020; 43(S1): S66-S76). The eAG is not equivalent to a fasting glucose. Blood 08/03/2024 7:40 AM ASSOCIATE PROFESSOR [employer] 08/03/2024 7:49 AM ASSOCIATE PROFESSOR [employer] Lyndsey M. Rylan SODA DIALYZER LAB BLOOD ORDERABLES Angeles l Result [facility] [place] [address] * Gamma GT (08/03/2024 7:40 AM ASSOCIATE [employer]) [facility] GGT 23 10 - 50 Units/L Blood 08/03/2024 7:40 AM ASSOCIATE [employer] 08/03/2024 9:36 AM ASSOCIATE [employer] Hermelindo Butler MD LAB BLOOD ORDER ELANA Final Result Performing Organization Address [facility] Co de Phone Number [facility] [place] [address] * (ABNORMAL) IgA (08/03/2024 7:40 AM ASSOCIATE PROFESS[employer]) [facility] Immunoglobulin A <50(L) 70 - 400 mg/dL Blood 08/03/2024 7:40 AM ASSOCIATE [employer] 08/03/2024 8:09 AM ASSOCIATE [employer] Hermelindo Butler MD LAB BLOOD ORDER ELANA Final Result Performing Organization Address [facility] Co de Phone Number [facility] [place] [address] * (ABNORMAL) IgM (08/03/2024 7:40 AM ASSOCIATE PROF[employer]) [facility] Immunoglobulin M <25(L) 40 - 230 mg/dL Blood 08/03/2024 7:40 AM ASSOCIATE [employer] 08/03/2024 8:09 AM ASSOCIATE [employer] Hermelindo Butler MD LAB BLOOD ORDER ELANA Final Result Performing Organization Address City/[facility] Co de Phone Number [facility] [place] [address] * (ABNORMAL) IgG (08/03/2024 7:40 AM ASSOCIATE PROF[employer]) Pathologist [facility] Immunoglobulin G <300(L) 700 - 1,600 mg/dL Blood 08/03/2024 7:40 AM ASSOCIATE [employer] 08/03/2024 8:09 AM ASSOCIATE [employer] Hermelindo Butler MD LAB BLOOD ORDER ELANA Final Result [facility] [place] [address] * (ABNORMAL) Comprehensive metabolic panel (08/03/2024 7:40 AM ASSOCIATE PROF[employer]) Pathologist [facility] Sodium 141 135 - 145 mmol/L Potassium, pl 4.0 3.3 - 4.9 mmol/L [facility] Chloride 104 97 - 110 mmol/L [facility] CO2 30 22 - 32 mmol/L [facility] Anion gap 7 2 - 15 mmol/L [facility] BUN 47(H) 6 - 25 mg/dL [facility] Creatinine 1.92(H) 0.80 - 1.30 mg/dL [facility] Glucose 116 70 - 199 mg/dL [facility] Comment: Interpretive Data Fasting glucose >/= [...] 2022. Calcium 9.2 8.5 - 10.3 mg/dL [facility] Bilirubin, total 0.7 0.1 - 1.2 mg/dL [facility] Protein, pl 6.2(L) 6.5 - 8.5 g/dL [facility] Albumin 3.9 3.5 - 5.0 g/dL [facility] Alk phos 63 40 - 130 Units/L [facility] ALT 15 7 - 55 Units/L [facility] AST 17 10 - 50 Units/L [facility] Blood 08/03/2024 7:40 AM ASSOCIATE [employer] 08/03/2024 7:49 AM ASSOCIATE PROF[employer] Hermelindo Butler MD LAB BLOOD ORDER ELANA Final Result Performing Organization Address [facility] Co de Phone Number [facility] [place] [address] * (ABNORMAL) Urinalysis reflex to microscopic and culture Urine, clean voided (08/03/2024 7:30 AM ASSOCIATE PROF[employer]) Color, ur Straw Yellow Clarity, ur Clear Clear [facility] Specific gravity, ur 1.012 1.003 - 1.030 [facility] pH, urine 5.5 [facility] Comment: Interpretive Data U rine pH is affected by diet, medications, systemic acid-base disturbances, and renal tubular function. pH may affect urinary stone formation. For example, urine pH below 6.0 may help reduce the tendency for calcium phosphate stones and pH greater than 6.0 may reduce the tendency for uric acid stone formation. Source: [facility] Current Interpretive Data was last revised on 2017 Protein, ur ql Negative Negative [facility] Glucose, ur ql Negative Negative [facility] Ketones, ur Negative Negative [facility] Bilirubin, ur Negative Negative [facility] Blood, ur 2+(A) Negative [facility] Urobilinogen, ur <2.0 <2.0 mg/dL [facility] Nitrite, ur Negative Negative [facility] Leukocyte esterase, ur Negative [facility] UA reflex comment Reflex to microscopic UA will be performed. [facility] Urine, clean voided 08/03/2024 7:30 AM ASSOCIATE [employer] 08/03/2024 7:30 AM ASSOCIATE [employer] Lyndsey Fagan NP LAB MICROBIOLOGY - GENERA L ORDERABLES Final Result Performing Organization Address City/[facility]/ZIP Co de Phone Number [facility] [place] [address] * (ABNORMAL) Urinalysis, microscopic only (08/03/2024 7:30 AM ASSOCIATE PROF[employer]) WBC, ur 6-10(A) 0 - 5 /HPF RBC, ur 11-20(A) 0 - 2 /HPF [facility] Epithelial cells, squamous, ur 1-5 0 - 5 /HPF [facility] Bacteria, ur Trace(A) [facility] Culture Reflex Comment Reflex conditions for urine culture (WBC >10) not met. [facility] Urine, clean voided 08/03/2024 7:30 AM ASSOCIATE [employer] 08/03/2024 7:30 AM ASSOCIATE PROF[employer] Lyndsey Fagan NP LAB URINE ORDERABLES Angeles l Result Performing Organization Address [facility] Co de Phone Number [facility] Department [place] [address] * Urine culture Urine, clean voided (08/03/2024 7:30 AM ASSOCIATE PROFESS[employer]) Pathologist [facility] Report Final Report: No growth Urine, clean voided 08/03/2024 7:30 AM ASSOCIATE PROF[employer] 08/03/2024 9:59 AM ASSOCIATE PROF[employer] Narrative [facility] - 08/04/2024 11:14 AM ASSOCIATE [employer] Testing performed by [facility] ([phone]) us Hermelindo Butler MD LAB MICROBIOLOG Y - GENERAL ORDERABLES Final Result Performing Organization Address [facility] [place] [address] * Immunotyping, serum with interpretation (07/13/2024 7:40 AM ASSOCIATE PROF[employer]) Pathologist [facility] Immunosubtraction Please see comment Comment: NO PARAPROTEIN DETECTED Reviewed and signed by Rufino Huff MD, PhD 07/14/2024 Blood 07/13/2024 7:40 AM ASSOCIATE [employer] 07/13/2024 8:42 AM ASSOCIATE [employer] Hermelindo Butler MD LAB BLOOD ORDER ELANA Final Result Performing Organization Address City/[facility]/ZIP Co de Phone Number [facility] [place] [address] * (ABNORMAL) eGFR (07/13/2024 7:40 AM ASSOCIATE PROF[employer]) eGFR 57(L) >=60 mL/min/1. 73 m2 Comment: [...] last reviewed 2021. Blood 07/13/2024 7:40 AM ASSOCIATE [employer] 07/13/2024 7:47 AM ASSOCIATE [employer] Hermelindo Butler MD LAB BLOOD ORDER ELANA Final Result Performing Organization Address City/[facility]/ZIP Co de Phone Number [facility] [place] [address] * Differential, auto (07/13/2024 7:40 AM ASSOCIATE PROF[employer]) Neutrophil abs 5.4 1.5 - 6.5 K/cumm Comment:Testing performed by : [facility], [address] [place], [place] [phone] Lymphocyte abs 0.9 0.8 - 3.3 K/cumm [facility] Comment:Testing performed by : [facility], [address] [place] [phone] Monocyte abs 0.5 0.2 - 0.8 K/cumm [facility] Comment:Testing performed by : [facility], [address] [place], [place] [phone] Eosinophil abs 0.5 0.0 - 0.5 K/cumm [facility] Comment:Testing performed by : [facility], [address] [place], [place] [phone] Basophil abs 0.0 0.0 - 0.1 K/cumm [facility] Comment:Testing performed by : [facility], [address] [place] [address] Neutrophil pct 73.6 % [facility] Comment: Interpretive Data Percent cell count reference ranges are not reported, since discordance with absolute values may lead to misinterpretation of CBC data. Current Interpretive Data was last revised on 2017. Testing performed by: [facility], [address] [place] [phone] Lymphocyte pct 12.0 % [facility] Comment: Interpretive Data Percent cell count reference ranges are not reported, since discordance with absolute values may lead to misinterpretation of CBC data. Current Interpretive Data was last revised on 2017. Testing performed by: [facility], [address] [place] [phone] Monocyte pct 7.4 % [facility] Comment: Interpretive Data Percent cell count reference ranges are not reported, since discordance with absolute values may lead to misinterpretation of CBC data. Current Interpretive Data was last revised on 2017. Testing performed by: [facility], [address] [place] [phone] Eosinophil pct 6.5 % [facility] Comment: Interpretive Data Percent cell count reference ranges are not reported, since discordance with absolute values may lead to misinterpretation of CBC data. Current Interpretive Data was last revised on 2017. Testing performed by: [facility], [address] [place] [phone] Basophil pct 0.5 % [facility] Comment: Interpretive Data Percent cell count reference ranges are not reported, since discordance with absolute values may lead to misinterpretation of CBC data. Current Interpretive Data was last revised on 2017. Testing performed by: [facility], [address] [place] [phone] Blood 07/13/2024 7:40 AM ASSOCIATE [employer] 07/13/2024 7:46 AM ASSOCIATE PROF[employer] Hermelindo Butler MD LAB BLOOD ORDER ELANA Final Result [facility] [place] [address] * (ABNORMAL) Immunoglobulin free light chains (07/13/2024 7:40 AM ASSOCIATE PROFESS[employer]) [place]/Lambda ratio [facility] See Comment 0.26 - 1.65 Comment: Unable to calculate exact result. Interpretive Data The Binding Site FreeLite assay procedure was used. Results from different manufacturers or methods may not be comparable. Serial testing should be performed using the same methods and instrumentation. Current Interpretive Data was last revised on 2023. [place] free light chain [facility] <0.06(L) 0.33 - [...] revised on 2023. Blood 07/13/2024 7:40 AM ASSOCIATE [employer] 07/13/2024 8:42 AM ASSOCIATE PROF[employer] us Hermelindo Butler MD LAB BLOOD ORDER ELANA Final Result [facility] [place] [address] * (ABNORMAL) CBC with auto differential (07/13/2024 7:40 AM ASSOCIATE PROF[employer]) WBC 7.4 3.8 - 9.9 K/cumm Comment:Testing performed by : [facility], [address] [place] [address] Hgb 14.4 13.0 - 17.5 g/dL [facility] Comment:Testing performed by : [facility], [address] [place] [address] Hct 44.1 38.9 - 50.3 % [facility] Comment:Testing performed by : [facility], [address] [place] [address] Plt 174 150 - 400 K/cumm MT [facility] Comment:Testing performed by : [facility], [address] [place] [address] MPV 7.5 6.8 - 10.4 fL MT [facility] Comment:Testing performed by : [facility], [address] [place] [address] RBC 4.75 4.30 - 5.80 M/cumm [facility] Comment:Testing performed by : [facility], [address] [place] [address] MCV 92.8 81.3 - 96.4 fL [facility] Comment:Testing performed by : [facility], [address] [place] [address] MCH 30.2 27.1 - 33.3 pg [facility] Comment:Testing performed by : [facility], [address] [place] [phone] MCHC 32.6 32.3 - 35.7 g/dL MT [facility] Comment:Testing performed by : [facility], [address] [place] [phone] RDW CV 16.2(H) 11.1 - 14.9 % [facility]ANK [facility] Comment:Testing performed by : [facility], [address] [place] [phone] NRBC abs 0.00 0.00 - 0.01 K/cumm MT [facility] Comment:Testing performed by : [facility], [address] [place] [phone] Blood 07/13/2024 7:40 AM ASSOCIATE PROF[employer] 07/13/2024 7:46 AM ASSOCIATE PROF[employer] Hermelindo Butler MD LAB BLOOD ORDER ELANA Final Result [facility] [place] [address] * (ABNORMAL) Protein electrophoresis with reflex, serum with interpretation (07/13/2024 7:40 AM ASSOCIATE PROF[employer]) Protein, sr 5.7(L) 6.2 - 8.2 g/dL Albumin 3.7 3.2 - 5.0 g/dL [facility] Alpha-1 globulin 0.3 0.2 - 0.4 g/dL [facility] Alpha-2 globulin 0.6 0.5 - 1.0 g/dL [facility] Beta-1 globulin 0.4 0.3 - 0.6 g/dL [facility] Beta-2 globulin 0.3 0.2 - 0.6 g/dL [facility] Gamma globulin 0.3(L) 0.5 - 1.7 g/dL [facility] SPEP interp Please see comment MT [facility] Comment: No apparent monoclonal peak Decreased gamma globulins Electrophoretic pattern appears similar to previous sample 06/23/24 See immunotyping for further information Reviewed and signed by Rufino Huff MD, PhD 07/14/2024 Blood 07/13/2024 7:40 AM ASSOCIATE PROF[employer] 07/13/2024 8:42 AM ASSOCIATE PROF[employer] Hermelindo Butler MD LAB BLOOD ORDER ELANA Final Result Performing Organization Address [facility] de Phone Number [facility] [place] [address] * Magnesium (07/13/2024 7:40 AM ASSOCIATE PROF[employer]) Magnesium 2.2 1.4 - 2.5 mg/dL Blood 07/13/2024 7:40 AM ASSOCIATE [employer] 07/13/2024 7:47 AM ASSOCIATE PROF[employer] Hermelindo Butler MD LAB BLOOD ORDER ELANA Final Result Performing Organization Address [facility] de Phone Number [facility] [place] [address] * Lactate dehydrogenase (LD) (07/13/2024 7:40 AM ASSOCIATE PROF[employer]) Lactate dehydrogenase (LDH) 152 100 - 250 Units/L Blood 07/13/2024 7:40 AM ASSOCIATE [employer] 07/13/2024 7:47 AM ASSOCIATE PROF[employer] Hermelindo Butler MD LAB BLOOD ORDER ELANA Final Result Performing Organization Address City/[facility] de Phone Number [facility] [place] [address] * Gamma GT (07/13/2024 7:40 AM ASSOCIATE PROFESS[employer]) GGT 27 10 - 50 Units/L Blood 07/13/2024 7:40 AM ASSOCIATE PROF[employer] 07/13/2024 7:47 AM ASSOCIATE PROF[employer] Hermelindo Butler MD LAB BLOOD ORDER ELANA Final Result Performing Organization Address City/[facility]/ZIP Co de Phone Number [facility] [place] [address] * (ABNORMAL) IgA (07/13/2024 7:40 AM ASSOCIATE PROFESS[employer]) Immunoglobulin A <50(L) 70 - 400 mg/dL Blood 07/13/2024 7:40 AM ASSOCIATE PROF[employer] 07/13/2024 7:59 AM ASSOCIATE PROF[employer] us Hermelindo Butler MD LAB BLOOD ORDER ELANA Final Result Performing Organization Address [facility] [place] [address] * (ABNORMAL) IgM (07/13/2024 7:40 AM ASSOCIATE PROF[employer]) Immunoglobulin M <25(L) 40 - 230 mg/dL Blood 07/13/2024 7:40 AM ASSOCIATE PROF[employer] 07/13/2024 7:59 AM ASSOCIATE PROF[employer] Hermelindo Butler MD LAB BLOOD ORDER ELANA Final Result Performing Organization Address City/[facility] Co de Phone Number [facility] [place] [address] * (ABNORMAL) IgG (07/13/2024 7:40 AM ASSOCIATE PROFESS[employer]) Immunoglobulin G <300(L) 700 - 1,600 mg/dL Blood 07/13/2024 7:40 AM ASSOCIATE PROF[employer] 07/13/2024 7:59 AM ASSOCIATE PROF[employer] us Hermelindo Butler MD LAB BLOOD ORDER ELANA Final Result Performing Organization Address City/[facility]/ZIP Co de Phone Number [facility] [place] [address] * (ABNORMAL) Comprehensive metabolic panel (07/13/2024 7:40 AM ASSOCIATE PROF[employer]) Sodium 144 135 - 145 mmol/L Potassium, pl 4.2 3.3 - 4.9 mmol/L [facility] Chloride 107 97 - 110 mmol/L [facility] CO2 33(H) 22 - 32 mmol/L [facility] Anion gap 4 2 - 15 mmol/L [facility] BUN 29(H) 6 - 25 mg/dL [facility] Creatinine 1.34(H) 0.80 - 1.30 mg/dL [facility] Glucose 125 70 - 199 mg/dL [facility] Comment: Interpretive Data Fasting glucose >/= [...] 2022. Calcium 9.4 8.5 - 10.3 mg/dL [facility] Bilirubin, total 0.7 0.1 - 1.2 mg/dL [facility] Protein, pl 6.2(L) 6.5 - 8.5 g/dL [facility] Albumin 4.1 3.5 - 5.0 g/dL [facility] Alk phos 65 40 - 130 Units/L [facility] ALT 18 7 - 55 Units/L [facility] AST 16 10 - 50 Units/L [facility] Blood 07/13/2024 7:40 AM ASSOCIATE [employer] 07/13/2024 7:47 AM ASSOCIATE PROF[employer] us Hermelindo Butler MD LAB BLOOD ORDER ELANA Final Result [facility] [place] [address] * aPTT (07/13/2024 7:24 AM ASSOCIATE PROFESS[employer]) Pathologist [facility] aPTT 28 28 - 38 sec Comment: Interpretive Data Heparin therapeutic range: 66.0 - 100.0 seconds. Range based on correlation with therapeutic heparin activity range of 0.3 - 0.7 Units/mL. Current interpretive data was last revised on 2023. Blood 07/13/2024 7:24 AM ASSOCIATE [employer] 07/13/2024 7:59 AM ASSOCIATE PROF[employer] Hermelindo Butler MD LAB BLOOD ORDER ELANA Final Result Performing Organization Address [facility] Co de Phone Number MT [facility] [place] [address] * Protime-INR (07/13/2024 7:24 AM ASSOCIATE PROFESSOR [employer]) Pathologist [facility] PT 11.5 9.7 - 13.0 sec INR 1.06 0.90 - 1.20 [facility] Comment: Interpretive data Oral anticoagulant therapeutic ranges: Venous thromboembolism prophylaxis or treatment: 2.0-3.0 CARDIOLOGY Standard range: 2.0-3.0 High-intensity range: 2.5-3.5 Refer to indication-specific guidelines for appropriate target ranges for prosthetic heart valve replacement. Current interpretive data was last revised on 2019. Blood 07/13/2024 7:24 AM ASSOCIATE PROF[employer] 07/13/2024 7:59 AM ASSOCIATE PROF[employer] Hermelindo Butler MD LAB BLOOD ORDER ELANA Final Result Performing Organization Address City/[facility]/[place] [address] * Immunotyping, serum (06/22/2024 7:20 AM ASSOCIATE PROFESS[employer]) Pathologist [facility] Immunosubtraction Please see comment Comment: NO PARAPROTEIN DETECTED Reviewed and signed by Fernando Nunez MD, PhD 06/23/2024 Blood 06/22/2024 7:20 AM ASSOCIATE [employer] 06/22/2024 10:03 AM ASSOCIATE PROF[employer] Hermelindo Butler MD LAB BLOOD ORDER ELANA Final Result Performing Organization Address City/[facility] Co de Phone Number [facility] [place] [address] * eGFR (06/22/2024 7:20 AM ASSOCIATE PROF[employer]) eGFR 66 >=60 mL/min/1. 73 m2 Comment: [...] last reviewed 2021. Blood 06/22/2024 7:20 AM ASSOCIATE [employer] 06/22/2024 8:12 AM ASSOCIATE PROF[employer] Hermelindo Butler MD LAB BLOOD ORDER ELANA Final Result Performing Organization Address City/[facility]/ZIP Co de Phone Number [facility] [place] [address] * Differential, auto (06/22/2024 7:20 AM ASSOCIATE PROF[employer]) Neutrophil abs 5.4 1.5 - 6.5 K/cumm Comment:Testing performed by : [facility], [address] [place] [phone] Lymphocyte abs 0.9 0.8 - 3.3 K/cumm [facility] Comment:Testing performed by : [facility], [address] [place] [phone] Monocyte abs 0.5 0.2 - 0.8 K/cumm [facility] Comment:Testing performed by : [facility], [address] [place], [place] [phone] Eosinophil abs 0.2 0.0 - 0.5 K/cumm [facility] Comment:Testing performed by : [facility], [address] [place] [phone] Basophil abs 0.0 0.0 - 0.1 K/cumm [facility] Comment:Testing performed by : [facility], [address] [place] [address] Neutrophil pct 75.7 % [facility] Comment: Interpretive Data Percent cell count reference ranges are not reported, since discordance with absolute values may lead to misinterpretation of CBC data. Current Interpretive Data was last revised on 2017. Testing performed by: [facility], [address] [place] [phone] Lymphocyte pct 13.1 % [facility] Comment: Interpretive Data Percent cell count reference ranges are not reported, since discordance with absolute values may lead to misinterpretation of CBC data. Current Interpretive Data was last revised on 2017. Testing performed by: [facility], [address] [place] [phone] Monocyte pct 7.1 % [facility] Comment: Interpretive Data Percent cell count reference ranges are not reported, since discordance with absolute values may lead to misinterpretation of CBC data. Current Interpretive Data was last revised on 2017. Testing performed by: [facility], [address] [place] [phone] Eosinophil pct 3.5 % [facility] Comment: Interpretive Data Percent cell count reference ranges are not reported, since discordance with absolute values may lead to misinterpretation of CBC data. Current Interpretive Data was last revised on 2017. Testing performed by: [facility], [facility] [place] [phone] Basophil pct 0.6 % [facility] Comment: Interpretive Data Percent cell count reference ranges are not reported, since discordance with absolute values may lead to misinterpretation of CBC data. Current Interpretive Data was last revised on 2017. Testing performed by: [facility], [facility] [place] [phone] Blood 06/22/2024 7:20 AM ASSOCIATE [employer] 06/22/2024 8:08 AM ASSOCIATE [employer] Hermelindo Butler MD LAB BLOOD ORDER ELANA Final Result [facility] Department of Laboratories [place] [address] * (ABNORMAL) Immunoglobulin free light chains (06/22/2024 7:20 AM ASSOCIATE PROFESSOR OF [employer]) [place]/Lambda ratio [facility] See Comment 0.26 - 1.65 Comment: Unable to calculate exact result. Interpretive Data The Binding Site FreeLite assay procedure was used. Results from different manufacturers or methods may not be comparable. Serial testing should be performed using the same methods and instrumentation. Current Interpretive Data was last revised on 2023. [place] free light chain [facility] <0.06(L) 0.33 - [...] revised on 2023. Blood 06/22/2024 7:20 AM ASSOCIATE PROFESSOR [employer] 06/22/2024 9:53 AM ASSOCIATE PROFESSOR [employer] us Hermelindo Butler MD LAB BLOOD ORDER ELANA Final Result [facility] [place] [address] * (ABNORMAL) CBC with auto differential (06/22/2024 7:20 AM ASSOCIATE PROFESSOR [employer]) WBC 7.1 3.8 - 9.9 K/cumm Comment:Testing performed by : [facility], [address] [place] [address] Hgb 14.6 13.0 - 17.5 g/dL [facility] Comment:Testing performed by : [facility], [address] [place] [address] Hct 45.6 38.9 - 50.3 % [facility]J Comment:Testing performed by : [facility], [address] [place] [address] Plt 196 150 - 400 K/cumm [facility]J Comment:Testing performed by : [facility], [address] [place] [address] MPV 8.3 6.8 - 10.4 fL [facility]J Comment:Testing performed by : [facility], [address] [place] [address] RBC 4.88 4.30 - 5.80 M/cumm [facility]J Comment:Testing performed by : [facility], [address] [place] [address] MCV 93.5 81.3 - 96.4 fL [facility]J Comment:Testing performed by : [facility], [address] [place] [address] MCH 29.9 27.1 - 33.3 pg [facility] BJ Comment:Testing performed by : [facility], [address] [place], [place] [id number] MCHC 31.9(L) 32.3 - 35.7 g/dL [facility] Comment:Testing performed by : [facility], [address] [place], [place] [id number] RDW CV 16.0(H) 11.1 - 14.9 % [facility] Comment:Testing performed by : [facility], [address] [place] [address] NRBC abs 0.20(H) 0.00 - 0.01 K/cumm [facility] Comment:Testing performed by : [facility], [address] [place] [id number] Blood 06/22/2024 7:20 AM ASSOCIATE PROFESS[employer] 06/22/2024 8:08 AM ASSOCIATE PROFESSOR [employer] Hermelindo Butler MD LAB BLOOD ORDER ELANA Final Result Performing Organization Address City/[facility] Co de Phone Number [facility] [place] [address] * aPTT (06/22/2024 7:20 AM ASSOCIATE PROFESSOR [employer]) Pathologist [facility] aPTT 29 28 - 38 sec Comment: Interpretive Data Heparin therapeutic range: 66.0 - 100.0 seconds. Range based on correlation with therapeutic heparin activity range of 0.3 - 0.7 Units/mL. Current interpretive data was last revised on 2023. Blood 06/22/2024 7:20 AM ASSOCIATE PROFESS[employer] 06/22/2024 9:50 AM ASSOCIATE PROFESSOR [employer] Hermelindo Butler MD LAB BLOOD ORDER ELANA Final Result Performing Organization Address City/[facility] Co de Phone Number [facility] [place] [address] * Protime-INR (06/22/2024 7:20 AM ASSOCIATE PROFESSOR [employer]) PT 10.9 9.7 - 13.0 sec INR 1.01 0.90 - 1.20 [facility] Comment: Interpretive data Oral anticoagulant therapeutic ranges: Venous thromboembolism prophylaxis or treatment: 2.0-3.0 CARDIOLOGY Standard range: 2.0-3.0 High-intensity range: 2.5-3.5 Refer to indication-specific guidelines for appropriate target ranges for prosthetic heart valve replacement. Current interpretive data was last revised on 2019. Blood 06/22/2024 7:20 AM ASSOCIATE PROF[employer] 06/22/2024 9:50 AM ASSOCIATE PROFESSOR [employer] Hermelindo Butler MD LAB BLOOD ORDER ELANA Final Result [facility] [place] [address] * (ABNORMAL) Protein electrophoresis with reflex, serum (06/22/2024 7:20 AM ASSOCIATE PROFESS[employer]) Pathologist [facility] Protein, sr 5.9(L) 6.2 - 8.2 g/dL Albumin 3.7 3.2 - 5.0 g/dL [facility] Alpha-1 globulin 0.3 0.2 - 0.4 g/dL [facility] Alpha-2 globulin 0.7 0.5 - 1.0 g/dL [facility] Beta-1 globulin 0.5 0.3 - 0.6 g/dL [facility] Beta-2 globulin 0.3 0.2 - 0.6 g/dL [facility] Gamma globulin 0.4(L) 0.5 - 1.7 g/dL [facility] SPEP interp Please see comment [facility] Comment: No apparent monoclonal peak Decreased gamma globulins Electrophoretic pattern appears similar to previous sample 05-19-24 See immunotyping for further information Reviewed and signed by Fernando Nunez MD, PhD 06/23/2024 Immunotyping See Immunotyping Results [facility] Blood 06/22/2024 7:20 AM ASSOCIATE PROF[employer]OR [employer] 06/22/2024 9:55 AM ASSOCIATE PROFESS[employer] us Hermelindo Butler MD LAB BLOOD ORDER ELANA Final Result [facility] [place] [address] * Magnesium (06/22/2024 7:20 AM ASSOCIATE PROFESSOR [employer]) Magnesium 2.2 1.4 - 2.5 mg/dL Blood 06/22/2024 7:20 AM ASSOCIATE PROFESSOR [employer] 06/22/2024 8:12 AM ASSOCIATE PROFESSOR [employer] Hermelindo Butler MD LAB BLOOD ORDER ELANA Final Result Performing Organization Address [facility] de Phone Number [facility] [place] [address] * Lactate dehydrogenase (LD) (06/22/2024 7:20 AM ASSOCIATE PROFESSOR [employer]) Lactate dehydrogenase (LDH) 157 100 - 250 Units/L Blood 06/22/2024 7:20 AM ASSOCIATE PROF[employer] 06/22/2024 8:12 AM ASSOCIATE PROFESS[employer] Hermelindo Butler MD LAB BLOOD ORDER ELANA Final Result Performing Organization Address City/[facility] Co de Phone Number [facility] [place] [address] * Gamma GT (06/22/2024 7:20 AM ASSOCIATE PROFESSOR [employer]) GGT 30 10 - 50 Units/L Blood 06/22/2024 7:20 AM ASSOCIATE PROF[employer] 06/22/2024 8:12 AM ASSOCIATE PROFESS[employer] Hermelindo Butler MD LAB BLOOD ORDER ELANA Final Result [facility] [place] [address] * (ABNORMAL) IgA (06/22/2024 7:20 AM ASSOCIATE PROFESSOR [employer]) Immunoglobulin A <50(L) 70 - 400 mg/dL Blood 06/22/2024 7:20 AM ASSOCIATE PROFESSOR [employer] 06/22/2024 9:49 AM ASSOCIATE PROFESSOR [employer] Hermelindo Butler MD LAB BLOOD ORDER ELANA Final Result Performing Organization Address City/[facility] Co de Phone Number [facility] [place] [address] * (ABNORMAL) IgM (06/22/2024 7:20 AM ASSOCIATE PROFESSOR [employer]) Pathologist [facility] Immunoglobulin M <25(L) 40 - 230 mg/dL Blood 06/22/2024 7:20 AM ASSOCIATE PROFESSOR [employer] 06/22/2024 9:49 AM ASSOCIATE PROFESSOR [employer] Hermelindo Butler MD LAB BLOOD ORDER ELANA Final Result Performing Organization Address [facility] de Phone Number [facility] [place] [address] * (ABNORMAL) IgG (06/22/2024 7:20 AM ASSOCIATE PROFESSOR [employer]) Pathologist [facility] Immunoglobulin G 423(L) 700 - 1,600 mg/dL Blood 06/22/2024 7:20 AM ASSOCIATE PROFESSOR [employer] 06/22/2024 9:49 AM ASSOCIATE PROFESSOR [employer] Hermelindo Butler MD LAB BLOOD ORDER ELANA Final Result Performing Organization Address City/[facility] Co de Phone Number [facility] [place] [address] * (ABNORMAL) Comprehensive metabolic panel (06/22/2024 7:20 AM ASSOCIATE PROFESSOR [employer]) [facility] Sodium 141 135 - 145 mmol/L Potassium, pl 4.1 3.3 - 4.9 mmol/L [facility] Chloride 104 97 - 110 mmol/L [facility] CO2 31 22 - 32 mmol/L [facility] Anion gap 6 2 - 15 mmol/L [facility] BUN 24 6 - 25 mg/dL [facility] Creatinine 1.18 0.80 - 1.30 mg/dL [facility] Glucose 111 70 - 199 mg/dL [facility] Comment: Interpretive Data Fasting glucose >/= [...] 2022. Calcium 9.5 8.5 - 10.3 mg/dL [facility] Bilirubin, total 0.7 0.1 - 1.2 mg/dL [facility] Protein, pl 6.3(L) 6.5 - 8.5 g/dL [facility] Albumin 3.8 3.5 - 5.0 g/dL [facility] Alk phos 63 40 - 130 Units/L [facility] ALT 18 7 - 55 Units/L [facility] AST 20 10 - 50 Units/L [facility] Blood 06/22/2024 7:20 AM ASSOCIATE PROFESSOR [employer] 06/22/2024 8:12 AM ASSOCIATE PROFESSOR [employer] us Hermelindo Butler MD LAB BLOOD ORDER ELANA Final Result [facility] [place] [address] * Hepatitis C antibody (10/16/2021 9:50 AM CDT) Hep C Ab Nonreactive Nonreactive [facility] Comment:Antibodies to HCV no t detected. Does NOT exclude the possibility of recent exposure to HCV. Blood 10/16/2021 9:50 AM CDT 10/16/2021 11:22 AM CDT Hermelindo dupree MD LAB MICROBIOLOGY - GENERAL ORDERABLES Edited Result - Final [facility] [place] [address] from Last 3 Months or Most Recently Relevant to Health Maintenance [facility] MEDICARE [employer] SENIOR SUPPLEMENT MEDICARE [employer] SENIOR SUPPLEMENT Advance Directives For more information, please contact: [phone] Documents on File Type Date Recorded Patient Engineering Teacher Expl anation ADVANCE DIRECTIVE 11/29/2017 11:05 AM FOX R OF BIOLOGICAL LAB TECHNICIAN ADVANCE DIRECTIVE 11/12/2017 3:59 PM POWER OF BIOLOGICAL LAB TECHNICIAN * Full Code (Latest Code Status on [...] 9:21 AM 05/30/2021 1:44 PM Care Teams Advanced Practice Provider Relationship Specialty Start Date End Date Jatin Gamble MD [address] [place] [address] PCP - General 10/07/16 Hermelindo Butler MD [address], [place] [id number] [facility] 12/02/17 Roberto Rojo MD [facility] [address] [place] [address] [facility] 12/02/17 Jatin Gamble MD [address] [place] [address] Referring Physician Internal Medicine 12/02/17 Lyndsey Fagan NP [address] [place] [address] Nurse Practitioner Medical Oncology 08/03/20 Erlin Servin MD [address] [place] [address] Consulting Physician Otolaryngology 10/04/22 [place] [address] [place] [address] Consulting Physician Urology 05/28/23
--- OUTSIDE RECORDS SUMMARY | 2024-09-10 19:55 | XMS_ITS | Referral Summary ---
Author Organization [facility] Address [address] [place] [address] Care Team Providers Care Prosthetic Lab Technician Name Role Phone Jatin Gamble MD Primary Care Provider [phone] Hermelindo Butler MD Unavailable Roberto Rojo MD Unavailable [phone] Jatin Gamble MD Unavailable [phone] Lyndsey Fagan NP Unavailable [phone] Erlin Servin MD Unavailable [phone] Julian Valdez MD Unavailable Encounters Date Type Department Care Team Description 09/10/2024 Orders Only Urology Yesika Capone PA Elevated prostate specific antigen (PSA) (Primary Dx) 09/07/2024 Orders Only [facility] Bone Marrow Transplant [address] [phone] Hermelindo Hill MD 09/06/2024 Orders Only [facility] Bone Marrow Transplant [address] [place] [phone] Lyndsey Fagan NP 08/31/2024 8:45 AM CDT Clinical Support [facility] - Lab Collection [address] [facility] [address] [place] [address] Multiple myeloma in relapse (HCC); Multiple myeloma not having achieved remission (HCC); Multiple myeloma, remission status unspecified (HCC) 08/31/2024 10:00 AM CDT Infusion [facility] Infusion [address] [facility] [address] [place] [address] Multiple myeloma in relapse (HCC) (Primary Dx); Multiple myeloma in remission (HCC) 08/31/2024 9:00 AM CDT Office Visit [facility] Bone Marrow Transplant [address] [place] [phone] Hermelindo Hill MD Multiple myeloma in relapse (HCC) (Primary Dx); Multiple myeloma in remission (HCC) 08/31/2024 8:15 AM CDT Clinical Support [facility] Oncology Lab [address] [place] [phone] Multiple myeloma not having achieved remission (HCC); Multiple myeloma in remission (HCC) 08/30/2024 Orders Only [facility] Scanning, Provider 08/27/2024 Documentation Nephrology Ani Anne LCSW 08/27/2024 Orders Only [facility] Bone Marrow Transplant [address] [place] [phone] Hermelindo Hill MD Multiple myeloma not having achieved remission (HCC) (Primary Dx); JOHN (acute kidney injury) 08/23/2024 11:13 PM CDT - 08/26/2024 4:50 PM CDT Hospital Encounter [address] [phone] Hermelindo Hill MD [place], Thabet J.M., MD JOHN (acute kidney injury) (Primary Dx) Discharge Disposition: Discharge to home or self care 08/25/2024 6:50 AM CDT Ancillary Procedure [facility] Vascular Lab IP 1 [facility] [address] [place] [address] 08/23/2024 7:10 PM CDT - 08/23/2024 11:59 PM CDT Hospital Encounter [facility] Radiology 1 [facility] [place] [address] Discharge Disposition: Discharge to home or self care 08/23/2024 Orders Only [address] [phone] Hermelindo Hill MD 08/23/2024 Orders Only [facility] Bone Marrow Transplant [address] [place] [phone] Hermelindo Hill MD Multiple myeloma, remission status unspecified (HCC) (Primary Dx) 08/23/2024 5:24 PM CDT - 08/23/2024 11:59 PM CDT Hospital Encounter [facility] Cancer [facility] [address] [place] [phone] Hermelindo Hill MD Elevated serum creatinine (Primary Dx); Multiple myeloma, remission status unspecified (HCC) Discharge Disposition: Discharge to home or self care 08/20/2024 Orders Only [facility] Scanning, Provider 08/10/2024 Orders Only [facility] Scanning, Provider 08/06/2024 Telephone [facility] Bone Marrow Transplant [address] [place] [phone] Lyndsey Fagan NP 08/06/2024 Orders Only [facility] Bone Marrow Transplant [address] [place] [phone] Lyndsey Fagan NP Multiple myeloma, remission status unspecified (HCC) (Primary Dx) 08/06/2024 1:45 PM PIPE OR STEAM FITTER FURNACE INSTALLER Clinical Support [facility] - Lab Collection [facility] [address] [address] 08/06/2024 1:00 PM PIPE OR STEAM FITTER FURNACE INSTALLER - 08/06/2024 11:59 PM PIPE OR STEAM FITTER FURNACE INSTALLER Hospital Encounter [facility] Radiology 1 [place] [address] Multiple myeloma, remission status unspecified (HCC) Discharge Disposition: Discharge to home or self care 08/06/2024 Orders Only [facility] Bone Marrow Transplant [address] [place] [phone] Lyndsey Fagan NP JOHN (acute kidney injury) (Primary Dx) 08/06/2024 Orders Only [facility] Bone Marrow Trans[facility] [address] [phone] Hermelindo Hill MD Multiple myeloma, remission status unspecified (HCC) (Primary Dx) 08/06/2024 7:15 AM PIPE OR STEAM FITTER FURNACE INSTALLER Clinical Support [facility] - Lab Collection [facility] Floor 6 [place] [address] Multiple myeloma in relapse (HCC) (Primary Dx); Multiple myeloma, remission status unspecified (HCC); JOHN (acute kidney injury) 08/06/2024 8:00 AM PIPE OR STEAM FITTER FURNACE INSTALLER Infusion [facility] - Infusion [address] [facility] [address] [address] Multiple myeloma not having achieved remission (HCC) (Primary Dx); Hypogammaglobuline hakeem 08/03/2024 Orders Only [facility] Bone Marrow Trans[facility] [address] [phone] Hermelindo Hill MD 08/03/2024 Orders Only [facility] Bone Marrow Transplant [address] [place] [phone] Hermelindo Hill MD 08/03/2024 Orders Only [facility] Bone Marrow Transplant [address] [place] [phone] Hermelindo Hill MD 08/03/2024 9:30 AM PIPE OR STEAM FITTER FURNACE INSTALLER Infusion [facility] - Infusion [address] [facility] Floor 6 [place] [address] Multiple myeloma in relapse (HCC) (Primary Dx); Multiple myeloma in remission (HCC) 08/03/2024 7:30 AM PIPE OR STEAM FITTER FURNACE INSTALLER Clinical Support [facility] - Lab Collection [address] [place], [place] [address]e Floor 6 [place] [address] Multiple myeloma in remission (HCC); Multiple myeloma, remission status unspecified (HCC); Multiple myeloma in relapse (HCC) 08/03/2024 8:30 AM PIPE OR STEAM FITTER FURNACE INSTALLER Office Visit [facility] Bone Marrow Transplant [address] [place] [phone] Hermelindo Hill MD Multiple myeloma, remission status unspecified (HCC) (Primary Dx); Multiple myeloma in remission (HCC); Multiple myeloma in relapse (HCC) 08/02/2024 Telephone [facility] Bone Marrow Transplant [address] [place] [address] Lyndsey Fagan NP 07/30/2024 Telephone [facility] Bone Marrow Transplant [address] [place] [phone] Hermelindo Hill MD 07/27/2024 Telephone [facility] Bone Marrow Transplant [address] [place] [phone] Hermelindo Hill MD 07/26/2024 Orders Only [facility] Bone Marrow Transplant [address] [place] [phone] Hermelindo Hill MD 07/26/2024 Orders Only [facility] Bone Marrow Transplant [address] [place] [phone] Hermelindo Hill MD 07/26/2024 Telephone [facility] Bone Marrow Transplant [address] [place] [phone] Margaret Kay RMA Medical Question/Miscellan eous 07/13/2024 Telephone [facility] Bone Marrow Transplant [address] [place] [phone] Fadumo Tobar RN 07/13/2024 10:00 AM PIPE OR STEAM FITTER FURNACE INSTALLER Infusion [facility] - Infusion [address] [place] [address] Multiple myeloma in relapse (HCC) (Primary Dx); Multiple myeloma in remission (HCC) 07/13/2024 8:00 AM PIPE OR STEAM FITTER FURNACE INSTALLER Clinical Support [facility] - Lab Collection [address] [place] [address], [place] [address] Multiple myeloma in remission (HCC); Multiple myeloma in relapse (HCC); Multiple myeloma, remission status unspecified (HCC) 07/13/2024 9:00 AM PIPE OR STEAM FITTER FURNACE INSTALLER Office Visit [facility] Bone Marrow Transplant [address] [place] [phone] Hermelindo Hill MD Multiple myeloma, remission status unspecified (HCC) (Primary Dx); Multiple myeloma in remission (HCC); Hypogammaglobuline hakeem 06/22/2024 Orders Only [facility] Bone Marrow Transplant [address] [place] [phone] Hermelindo Hill MD 06/22/2024 Orders Only [facility] Bone Marrow Transplant [address] [place] [phone] Hermelindo Hill MD Multiple myeloma in remission (HCC) (Primary Dx); Multiple myeloma in relapse (HCC) 06/22/2024 8:30 AM PIPE OR STEAM FITTER FURNACE INSTALLER Infusion [facility] - Infusion [address] [facility] Floor 6 [place] [address] Multiple myeloma, remission status unspecified (HCC) (Primary Dx); Multiple myeloma in remission (HCC); Multiple myeloma in relapse (HCC) 06/22/2024 7:00 AM PIPE OR STEAM FITTER FURNACE INSTALLER Clinical Support [facility] - Lab Collection [facility] [address] [place] [address] Multiple myeloma, remission status unspecified (HCC); Multiple myeloma in relapse (HCC) 06/22/2024 8:00 AM PIPE OR STEAM FITTER FURNACE INSTALLER Office Visit [facility] Bone Marrow Transplant [address] [place] [phone] Hermelindo Hill MD Multiple myeloma in relapse (HCC) (Primary Dx); Multiple myeloma, remission status unspecified (HCC); Hypogammaglobuline hakeem; Obesity, morbid (HCC) 06/14/2024 Telephone [facility] Bone Marrow Transplant [address] [place] [phone] Margaret Kay RMA Reschedule from Last [...] Inpatient Care Coordination Overview Diagnosis [place] Floor [address] Treatment Plan Clinical Trial [id number] Ramesh Reason for Admission JOHN Transplant/IEC Planning [...] Medical Assistants Post-Discharge Follow-Up Living Situation/Distance from [place], [place] (45 min) Caregiver Self, Lab/Transfusion Frequency Phone: Fax: Venous Access & Care implanted vascular device Local Oncologist Contact Phone: Fax: Post-Discharge Office Visit (H30) [facility] 08/31 Miscellaneous Notes: Problem Noted Date Diagnosed [...] is a risk of orbital injury and AUTOMOTIVE PARTS SPECIALIST injury which could result in blindness [...] this. Assessment & Plan (07/09/2022 7:42 PM PIPE OR STEAM FITTER FURNACE INSTALLER): I talked with him quite a bit [...] weeks. Assessment & Plan (05/26/2022 4:16 PM PIPE OR STEAM FITTER FURNACE INSTALLER): He does have pretty significant sinusitis and [...] day. Assessment & Plan (05/26/2022 4:17 PM PIPE OR STEAM FITTER FURNACE INSTALLER): It is very possible that his cough could be due to sinusitis also. Hopefully that will continue to improve as we treat. He understands. Immunocompromised 11/13/2021 Multiple myeloma not having achieved remission 0 10/28/2021 Cancer Staging:Clinical stage from 10/16/2021:RISS Stage II(Repq-7-wzefpgxutpfxo (mg/L): 3.7, Albumin (g/dL): 4.2, ISS: Stage [...] and Dexamethasone in June 2021 Clinical trial [id number] initiated on 10/29/21; C46D1 08/03/24. BMT following [...] he got a TTE on 10/19 at [facility] however unclear why not currently in the system - May need to repeat TTE prior to treatment if results unavailable - Continue OI ppx with acyclovir 400mg BID - Begin trial [id number], a Bispecific Antibody Targeting BCMA treatment - [...] he got a TTE on 10/19 at [facility] however unclear why not currently in the system - May need to repeat TTE prior to treatment if results unavailable - Continue OI ppx with acyclovir 400mg BID - Begin trial [id number], a Bispecific Antibody Targeting BCMA treatment - [...] BID Assessment & Plan (05/31/2021 10:51 AM PIPE OR STEAM FITTER FURNACE INSTALLER): Continue home pepcid, asx Renal mass 05/30/2021 Assessment & Plan (05/31/2021 10:51 AM PIPE OR STEAM FITTER FURNACE INSTALLER): Admitted for observation after L renal mass [...] 07/17/2023 Assessment & Plan (05/31/2021 10:52 AM PIPE OR STEAM FITTER FURNACE INSTALLER): Follows with oncology on daratumumab monotherapy -counts [...] blood in urine Follow up pathology from [facility] high-grade papillary urothelial carcinoma (grade 2) --follow [...] blood in urine Follow up pathology from luhgkwvxn-peh-gcknafrx high-grade papillary urothelial carcinoma (grade 2) --follow [...] supplementation Assessment & Plan (05/31/2021 10:51 AM PIPE OR STEAM FITTER FURNACE INSTALLER): Stable on home losartan, nebivolol, triamterene-HCTZ Secondary [...] on file Legal Sex 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 PIPE OR STEAM FITTER FURNACE INSTALLER Gender Identity Not on file Sexual [...] on file Medical Devices Implanted Type Area Psychiatric Nursing Assistant Device Identifier Shelf Expiration Date Model / [...] Read Routine (OP Routine) 08/06/2024 2:42 PM PIPE OR STEAM FITTER FURNACE INSTALLER Multiple myeloma, remission status unspecified (HCC) URINALYSIS, MICROSCOPIC ONLY Routine 08/06/2024 9:19 AM PIPE OR STEAM FITTER FURNACE INSTALLER JOHN (acute kidney injury) PROTEIN / CREATININE RATIO, URINE, RANDOM Routine 08/06/2024 9:19 AM PIPE OR STEAM FITTER FURNACE INSTALLER JOHN (acute kidney injury) URINALYSIS AND REFLEX TO MICROSCOPIC Routine 08/06/2024 9:19 AM PIPE OR STEAM FITTER FURNACE INSTALLER JOHN (acute kidney injury) EGFR Routine 08/06/2024 7:43 AM PIPE OR STEAM FITTER FURNACE INSTALLER Multiple myeloma, remission status unspecified (HCC) DIFFERENTIAL AUTO Routine 08/06/2024 7:4 3 AM PIPE OR STEAM FITTER FURNACE INSTALLER Multiple myeloma, remission status unspecified (HCC) LACTATE DEHYDROGENASE Routine 08/06/2024 7:43 AM PIPE OR STEAM FITTER FURNACE INSTALLER Multiple myeloma, remission status unspecified (HCC) CBC WITH AUTO DIFFERENTIAL Routine 08/06/2024 7:43 AM PIPE OR STEAM FITTER FURNACE INSTALLER Multiple myeloma, remission status unspecified (HCC) COMPREHENSIVE METABOLIC PANEL Routine 08/06/2024 7:43 AM PIPE OR STEAM FITTER FURNACE INSTALLER Multiple myeloma, remission status unspecified (HCC) LIPID PANEL Routine 08/06/2024 7:43 AM PIPE OR STEAM FITTER FURNACE INSTALLER Multiple myeloma, remission status unspecified (HCC) PSA DIAGNOSTIC Routine 08/06/2024 7:43 AM PIPE OR STEAM FITTER FURNACE INSTALLER Multiple myeloma, remission status unspecified (HCC) PROTIME-INR STAT 08/03/2024 9:21 AM PIPE OR STEAM FITTER FURNACE INSTALLER Multiple myeloma in relapse (HCC) APTT STAT 08/03/2024 9:21 AM PIPE OR STEAM FITTER FURNACE INSTALLER Multiple myeloma in relapse (HCC) MAGNESIUM STAT 08/03/2024 7:40 AM PIPE OR STEAM FITTER FURNACE INSTALLER Multiple myeloma in relapse (HCC) GAMMA GT STAT 08/03/2024 7:40 AM PIPE OR STEAM FITTER FURNACE INSTALLER Multiple myeloma in relapse (HCC) EGFR Routine 08/03/2024 7:40 AM PIPE OR STEAM FITTER FURNACE INSTALLER Multiple myeloma, remission status unspecified (HCC) DIFFERENTIAL AUTO Routine 08/03/2024 7:4 0 AM PIPE OR STEAM FITTER FURNACE INSTALLER Multiple myeloma, remission status unspecified (HCC) CBC WITH AUTO DIFFERENTIAL Routine 08/03/2024 7:40 AM PIPE OR STEAM FITTER FURNACE INSTALLER Multiple myeloma, remission status unspecified (HCC) COMPREHENSIVE METABOLIC PANEL Routine 08/03/2024 7:40 AM PIPE OR STEAM FITTER FURNACE INSTALLER Multiple myeloma, remission status unspecified (HCC) IGA Routine 08/03/2024 7:40 AM PIPE OR STEAM FITTER FURNACE INSTALLER Multiple myeloma, remission status unspecified (HCC) IGG Routine 08/03/2024 7:40 AM PIPE OR STEAM FITTER FURNACE INSTALLER Multiple myeloma, remission status unspecified (HCC) IGM Routine 08/03/2024 7:40 AM PIPE OR STEAM FITTER FURNACE INSTALLER Multiple myeloma, remission status unspecified (HCC) IMMUNOGLOBULIN FREE LIGHT CHAINS Routine 08/03/2024 7:40 AM PIPE OR STEAM FITTER FURNACE INSTALLER Multiple myeloma, remission status unspecified (HCC) LACTATE DEHYDROGENASE Routine 08/03/2024 7:40 AM PIPE OR STEAM FITTER FURNACE INSTALLER Multiple myeloma, remission status unspecified (HCC) PROTEIN ELECTROPHORESIS, WITH REFLEX, SERUM Routine 08/03/2024 7:40 AM PIPE OR STEAM FITTER FURNACE INSTALLER Multiple myeloma, remission status unspecified (HCC) IMMUNOTYPING Routine 08/03/2024 7:40 AM PIPE OR STEAM FITTER FURNACE INSTALLER Multiple myeloma, remission status unspecified (HCC) HEMOGLOBIN A1C Routine 08/03/2024 7:40 AM PIPE OR STEAM FITTER FURNACE INSTALLER Multiple myeloma, remission status unspecified (HCC) URINALYSIS, MICROSCOPIC ONLY Routine 08/03/2024 7:30 AM PIPE OR STEAM FITTER FURNACE INSTALLER Multiple myeloma, remission status unspecified (HCC) URINE CULTURE Routine 08/03/2024 7:30 AM PIPE OR STEAM FITTER FURNACE INSTALLER URINALYSIS AND REFLEX TO MICROSCOPIC AND CULTURE Routine 08/03/2024 7:30 AM PIPE OR STEAM FITTER FURNACE INSTALLER Multiple myeloma, remission status unspecified (HCC) EGFR STAT 07/13/2024 7:40 AM PIPE OR STEAM FITTER FURNACE INSTALLER Multiple myeloma in relapse (HCC) DIFFERENTIAL AUTO STAT 07/13/2024 7:4 0 AM PIPE OR STEAM FITTER FURNACE INSTALLER Multiple myeloma in relapse (HCC) IGA Routine 07/13/2024 7:40 AM PIPE OR STEAM FITTER FURNACE INSTALLER Multiple myeloma, remission status unspecified (HCC) IGG Routine 07/13/2024 7:40 AM PIPE OR STEAM FITTER FURNACE INSTALLER Multiple myeloma, remission status unspecified (HCC) IGM Routine 07/13/2024 7:40 AM PIPE OR STEAM FITTER FURNACE INSTALLER Multiple myeloma, remission status unspecified (HCC) IMMUNOGLOBULIN FREE LIGHT CHAINS Routine 07/13/2024 7:40 AM PIPE OR STEAM FITTER FURNACE INSTALLER Multiple myeloma, remission status unspecified (HCC) PROTEIN ELECTROPHORESIS, WITH REFLEX, SERUM Routine 07/13/2024 7:40 AM PIPE OR STEAM FITTER FURNACE INSTALLER Multiple myeloma, remission status unspecified (HCC) IMMUNOTYPING Routine 07/13/2024 7:40 AM PIPE OR STEAM FITTER FURNACE INSTALLER Multiple myeloma, remission status unspecified (HCC) LACTATE DEHYDROGENASE Routine 07/13/2024 7:40 AM PIPE OR STEAM FITTER FURNACE INSTALLER Multiple myeloma in relapse (HCC) GAMMA GT STAT 07/13/2024 7:40 AM PIPE OR STEAM FITTER FURNACE INSTALLER Multiple myeloma in relapse (HCC) MAGNESIUM STAT 07/13/2024 7:40 AM PIPE OR STEAM FITTER FURNACE INSTALLER Multiple myeloma in relapse (HCC) COMPREHENSIVE METABOLIC PANEL STAT 07/13/2024 7:40 AM PIPE OR STEAM FITTER FURNACE INSTALLER Multiple myeloma in relapse (HCC) CBC WITH AUTO DIFFERENTIAL STAT 07/13/2024 7:40 AM PIPE OR STEAM FITTER FURNACE INSTALLER Multiple myeloma in relapse (HCC) APTT STAT 07/13/2024 7:24 AM PIPE OR STEAM FITTER FURNACE INSTALLER Multiple myeloma in relapse (HCC) PROTIME-INR STAT 07/13/2024 7:24 AM PIPE OR STEAM FITTER FURNACE INSTALLER Multiple myeloma in relapse (HCC) IMMUNOTYPING Routine 06/22/2024 7:20 AM PIPE OR STEAM FITTER FURNACE INSTALLER Multiple myeloma, remission status unspecified (HCC) EGFR Routine 06/22/2024 7:20 AM PIPE OR STEAM FITTER FURNACE INSTALLER Multiple myeloma, remission status unspecified (HCC) DIFFERENTIAL AUTO Routine 06/22/2024 7:2 0 AM PIPE OR STEAM FITTER FURNACE INSTALLER Multiple myeloma, remission status unspecified (HCC) CBC WITH AUTO DIFFERENTIAL Routine 06/22/2024 7:20 AM PIPE OR STEAM FITTER FURNACE INSTALLER Multiple myeloma, remission status unspecified (HCC) COMPREHENSIVE METABOLIC PANEL Routine 06/22/2024 7:20 AM PIPE OR STEAM FITTER FURNACE INSTALLER Multiple myeloma, remission status unspecified (HCC) IGA Routine 06/22/2024 7:20 AM PIPE OR STEAM FITTER FURNACE INSTALLER Multiple myeloma, remission status unspecified (HCC) IGG Routine 06/22/2024 7:20 AM PIPE OR STEAM FITTER FURNACE INSTALLER Multiple myeloma, remission status unspecified (HCC) IGM Routine 06/22/2024 7:20 AM PIPE OR STEAM FITTER FURNACE INSTALLER Multiple myeloma, remission status unspecified (HCC) IMMUNOGLOBULIN FREE LIGHT CHAINS Routine 06/22/2024 7:20 AM PIPE OR STEAM FITTER FURNACE INSTALLER Multiple myeloma, remission status unspecified (HCC) LACTATE DEHYDROGENASE Routine 06/22/2024 7:20 AM PIPE OR STEAM FITTER FURNACE INSTALLER Multiple myeloma, remission status unspecified (HCC) PROTEIN ELECTROPHORESIS, WITH REFLEX, SERUM Routine 06/22/2024 7:20 AM PIPE OR STEAM FITTER FURNACE INSTALLER Multiple myeloma, remission status unspecified (HCC) MAGNESIUM STAT 06/22/2024 7:20 AM PIPE OR STEAM FITTER FURNACE INSTALLER Multiple myeloma in relapse (HCC) GAMMA GT STAT 06/22/2024 7:20 AM PIPE OR STEAM FITTER FURNACE INSTALLER Multiple myeloma in relapse (HCC) PROTIME-INR STAT 06/22/2024 7:20 AM PIPE OR STEAM FITTER FURNACE INSTALLER Multiple myeloma in relapse (HCC) APTT STAT 06/22/2024 7:20 AM PIPE OR STEAM FITTER FURNACE INSTALLER Multiple myeloma in relapse (HCC) HEPATITIS C ANTIBODY STAT 10/16/2021 9:50 AM CDT Multiple myeloma in relapse (HCC) from Last 3 Months or Most Recently Relevant to Health Maintenance Results * Differential, auto (08/31/2024 8:12 AM CDT) Neutrophil abs 6.0 1.5 - 6.5 K/cumm Comment:Testing performed by : [facility], [address] [place] [phone] Lymphocyte abs 1.0 0.8 - 3.3 K/cumm [facility] Comment:Testing performed by : [facility], [address] [place] [phone] Monocyte abs 0.6 0.2 - 0.8 K/cumm [facility] Comment:Testing performed by : [facility], [address] [place] [phone] Eosinophil abs 0.3 0.0 - 0.5 K/cumm [facility] Comment:Testing performed by : [facility], [address] [place] [phone] Basophil abs 0.1 0.0 - 0.1 K/cumm [facility] Comment:Testing performed by : [facility], [address] [place], [place] [phone] Neutrophil pct 75.2 % [facility] Comment: Interpretive Data Percent cell count reference ranges are not reported, since discordance with absolute values may lead to misinterpretation of CBC data. Current Interpretive Data was last revised on 2017. Testing performed by: [facility], [address] [place] [phone] Lymphocyte pct 12.4 % [facility] Comment: Interpretive Data Percent cell count reference ranges are not reported, since discordance with absolute values may lead to misinterpretation of CBC data. Current Interpretive Data was last revised on 2017. Testing performed by: [facility], [address] [place] [phone] Monocyte pct 7.9 % [facility] Comment: Interpretive Data Percent cell count reference ranges are not reported, since discordance with absolute values may lead to misinterpretation of CBC data. Current Interpretive Data was last revised on 2017. Testing performed by: [facility], [address] [place] [phone] Eosinophil pct 3.9 % [facility] Comment: Interpretive Data Percent cell count reference ranges are not reported, since discordance with absolute values may lead to misinterpretation of CBC data. Current Interpretive Data was last revised on 2017. Testing performed by: [facility], [address] [place], [place] [phone] Basophil pct 0.6 % MT SUAREZ Comment: Interpretive Data Percent cell count reference ranges are not reported, since discordance with absolute values may lead to misinterpretation of CBC data. Current Interpretive Data was last revised on 2017. Testing performed by: [facility], [address] [place] [phone] Blood 08/31/2024 8:12 AM CDT 08/31/2024 8:16 AM CDT us Hermelindo Butler MD LAB BLOOD ORDER ELANA Final Result MT SUAREZ [facility] [place] [address] * (ABNORMAL) CBC with auto differential (08/31/2024 8:12 AM CDT) WBC 8.0 3.8 - 9.9 K/cumm Comment:Testing performed by : [facility], [address] [place] [address] Hgb 12.7(L) 13.0 - 17.5 g/dL MT SUAREZ Comment:Testing performed by : [facility], [address] [place] [address] Hct 37.8(L) 38.9 - 50.3 % MT SUAREZ Comment:Testing performed by : [facility], [address] [place] [address] Plt 176 150 - 400 K/cumm MT SUAREZ Comment:Testing performed by : [facility], [address] [place] [address] MPV 7.7 6.8 - 10.4 fL MT SUAREZ Comment:Testing performed by : [facility], [address] [place] [address] RBC 4.07(L) 4.30 - 5.80 M/cumm MT SUAREZ Comment:Testing performed by : [facility], [address] [place], [place] [phone] MCV 92.8 81.3 - 96.4 fL MT SUAREZ Comment:Testing performed by : [facility], [address] [place], [place] [phone] MCH 31.2 27.1 - 33.3 pg MT SUAREZ Comment:Testing performed by : [facility], [address] [place], [place] [phone] MCHC 33.6 32.3 - 35.7 g/dL MT SUAREZ Comment:Testing performed by : [facility], [address] [place], [place] [phone] RDW CV 16.1(H) 11.1 - 14.9 % MT SUAREZ Comment:Testing performed by : [facility], [address] [place], [place] [phone] NRBC abs 0.00 0.00 - 0.01 K/cumm MT SUAREZ Comment:Testing performed by : [facility], [address] [place], [place] [phone] Blood 08/31/2024 8:12 AM CDT 08/31/2024 8:16 AM CDT Hermelindo Butler MD LAB BLOOD ORDER ELANA Final Result MT [facility] [place] [address] * Type and screen (08/31/2024 8:12 AM [...] TEST ORDERABLES Final Result Performing Organization Address [facility]/ZIP Co de Phone Number MT SUAREZ [facility] [place] [employer] [place] [address] * Immunotyping, serum with interpretation (08/31/2024 8:12 AM CDT) Immunosubtraction Please see comment Comment: NO PARAPROTEIN DETECTED Reviewed and signed by Ivan Sims MD, PhD 09/01/2024 Blood 08/31/2024 8:12 AM CDT 08/31/2024 9:34 AM CDT Hermelindo Butler MD LAB BLOOD ORDER ELANA Final Result Performing Organization Address [facility] de Phone Number MT [facility] [place] [address] * (ABNORMAL) eGFR (08/31/2024 8:12 AM CDT) [...] [facility] [place] [address] * (ABNORMAL) Immunoglobulin free light chains (08/31/2024 8:12 AM CDT) Pathologist [facility] Pinhook/Lambda ratio [facility] See Comment 0.26 - 1.65 Comment: Unable to calculate exact result. Interpretive Data The Binding Site FreeLite assay procedure was used. Results from different manufacturers or methods may not be comparable. Serial testing should be performed using the same methods and instrumentation. Current Interpretive Data was last revised on 2023. Pinhook free light chain [facility] <0.06(L) 0.33 - 1.94 mg/dL [facility] Comment: Interpretive Data The Binding Site FreeLite assay procedure was used. Results from different manufacturers or methods may not be comparable. Serial testing should be performed using the same methods and instrumentation. Current Interpretive Data was last revised on 2023. Lambda free light chain [facility] <0.14(L) 0.57 - 2.63 mg/dL [facility] Comment: Interpretive Data The Binding [...] [facility] [place] [address] * (ABNORMAL) aPTT (08/31/2024 8:12 AM CDT) [...] ORDER ELANA Final Result Performing Organization Address [facility] de Phone Number [facility] [place] [address] * Protime-INR (08/31/2024 8:12 AM CDT) Pathologist [facility] PT 11.4 9.7 - 13.0 sec INR 1.05 0.90 - 1.20 [facility] Comment: Interpretive data Oral [...] ORDER ELANA Final Result Performing Organization Address [facility] Co de Phone Number [facility] [place] [address] * (ABNORMAL) Protein electrophoresis with reflex, serum with interpretation (08/31/2024 8:12 AM CDT) Pathologist [facility] Protein, sr 6.0(L) 6.2 - 8.2 g/dL Albumin 3.9 3.2 - 5.0 g/dL [facility] Alpha-1 globulin 0.4 0.2 - 0.4 g/dL [facility] Alpha-2 globulin 0.7 0.5 - 1.0 g/dL [facility] Beta-1 globulin 0.5 0.3 - 0.6 g/dL [facility] Beta-2 globulin 0.3 0.2 - 0.6 g/dL [facility] Gamma globulin 0.2(L) 0.5 - 1.7 g/dL [facility] SPEP interp Please see comment [facility] Comment: No apparent monoclonal peak Decreased gamma globulins Electrophoretic pattern appears similar to previous sample 08/24/2024 See immunotyping for further information Reviewed and signed by Ivan Sims MD, PhD 09/01/2024 Blood 08/31/2024 8:12 AM CDT 08/31/2024 9:34 AM CDT Hermelindo Butler MD LAB BLOOD ORDER ELANA Final Result [facility] [place] [address] * Magnesium (08/31/2024 8:12 AM CDT) Pathologist [facility] Magnesium 1.8 1.4 - 2.5 mg/dL Blood 08/31/2024 8:12 AM CDT 08/31/2024 8:20 AM CDT Hermelindo Butler MD LAB BLOOD ORDER ELANA Final Result [facility] [place] [address] * Lactate dehydrogenase (LD) (08/31/2024 8:12 AM CDT) Lactate dehydrogenase (LDH) 155 100 - 250 Units/L Blood 08/31/2024 8:12 AM CDT 08/31/2024 8:20 AM CDT Hermelindo Butler MD LAB BLOOD ORDER ELANA Final Result Performing Organization Address [facility] Co de Phone Number [facility] [place] [address] * Gamma GT (08/31/2024 8:12 AM CDT) GGT 27 10 - 50 Units/L Blood 08/31/2024 8:12 AM CDT 08/31/2024 8:20 AM CDT Hermelindo Butler MD LAB BLOOD ORDER ELANA Final Result Performing Organization Address [facility] de Phone Number [facility] [place] [address] * (ABNORMAL) IgA (08/31/2024 8:12 AM CDT) [facility] Immunoglobulin A <50(L) 70 - 400 mg/dL Blood 08/31/2024 8:12 AM CDT 08/31/2024 8:38 AM CDT us Hermelindo Butler MD LAB BLOOD ORDER ELANA Final Result Performing Organization Address [facility] de Phone Number [facility] [place] [address] * (ABNORMAL) IgM (08/31/2024 8:12 AM CDT) Immunoglobulin M <25(L) 40 - 230 mg/dL Blood 08/31/2024 8:12 AM CDT 08/31/2024 8:38 AM CDT Hermelindo Butler MD LAB BLOOD ORDER ELANA Final Result Performing Organization Address [facility] Co de Phone Number [facility] [place] [address] * (ABNORMAL) IgG (08/31/2024 8:12 AM CDT) Pathologist [facility] Immunoglobulin G <300(L) 700 - 1,600 mg/dL Blood 08/31/2024 8:12 AM CDT 08/31/2024 8:38 AM CDT Hermelindo Butler MD LAB BLOOD ORDER ELANA Final Result [facility] [place] [address] * (ABNORMAL) Comprehensive metabolic panel (08/31/2024 8:12 AM CDT) [facility] Sodium 141 135 - 145 mmol/L Potassium, pl 4.0 3.3 - 4.9 mmol/L [facility] Chloride 103 97 - 110 mmol/L [facility] CO2 29 22 - 32 mmol/L [facility] Anion gap 9 2 - 15 mmol/L [facility] BUN 31(H) 6 - 25 mg/dL [facility] Creatinine 1.61(H) 0.80 - 1.30 mg/dL [facility] Glucose 114 70 - 199 mg/dL [facility] Comment: Interpretive Data Fasting [...] 2022. Calcium 9.4 8.5 - 10.3 mg/dL [facility] Bilirubin, total 0.4 0.1 - 1.2 mg/dL [facility] Protein, pl 6.5 6.5 - 8.5 g/dL [facility] Albumin 4.1 3.5 - 5.0 g/dL [facility] Alk phos 65 40 - 130 Units/L [facility] ALT 16 7 - 55 Units/L [facility] AST 15 10 - 50 Units/L [facility] Blood 08/31/2024 8:12 AM CDT 08/31/2024 8:20 AM CDT us Hermelindo Butler MD LAB BLOOD ORDER ELANA Final Result [facility] [place] [address] * SCAN - LABS (08/30/2024) us Provider [...] Hargrove MD LAB BLOOD ORDERABLES Final Result [facility] [place] [address] * (ABNORMAL) Differential, auto (08/26/2024 12:25 AM CDT) Neutrophil abs 5.3 1.5 - 6.5 K/cumm Imm gran abs 0.0 0.0 - 0.1 K/cumm [facility] Lymphocyte abs 0.7(L) 0.8 - 3.3 K/cumm [facility] Monocyte abs 0.6 0.2 - 0.8 K/cumm [facility] Eosinophil abs 0.3 0.0 - 0.5 K/cumm [facility] Basophil abs 0.0 0.0 - 0.1 K/cumm [facility] Neutrophil pct 75.7 % [facility] Comment: Interpretive Data Percent cell count reference ranges are not reported, since discordance with absolute values may lead to misinterpretation of CBC data. Current Interpretive Data was last revised on 2017. Imm gran pct 0.4 % [facility] Comment: Interpretive Data Percent cell count reference ranges are not reported, since discordance with absolute values may lead to misinterpretation of CBC data. Current Interpretive Data was last revised on 2017. Lymphocyte pct 10.4 % [facility] Comment: Interpretive Data Percent cell count reference ranges are not reported, since discordance with absolute values may lead to misinterpretation of CBC data. Current Interpretive Data was last revised on 2017. Monocyte pct 9.0 % [facility] Comment: Interpretive Data Percent cell count reference ranges are not reported, since discordance with absolute values may lead to misinterpretation of CBC data. Current Interpretive Data was last revised on 2017. Eosinophil pct 4.4 % [facility] Comment: Interpretive Data Percent cell count reference ranges are not reported, since discordance with absolute values may lead to misinterpretation of CBC data. Current Interpretive Data was last revised on 2017. Basophil pct 0.1 % [facility] Comment: Interpretive Data Percent cell count reference ranges are not reported, since discordance with absolute values may lead to misinterpretation of CBC data. Current Interpretive Data was last revised on 2017. Blood 08/26/2024 12:2 5 AM CDT 08/26/2024 12:35 AM CDT Karlos Hargrove MD LAB BLOOD ORDERABLES Final Result Performing Organization Address [facility] Co de Phone Number [facility] [place] [employer] [place] [address] * (ABNORMAL) CBC with auto differential (08/26/2024 12:25 AM CDT) WBC 7.0 3.8 - 9.9 K/cumm Hgb 11.8(L) 13.0 - 17.5 g/dL [facility] Hct 35.7(L) 38.9 - 50.3 % [facility] Plt 131(L) 150 - 400 K/cumm [facility] MPV 9.2 9.1 - 12.3 fL [facility] RBC 3.83(L) 4.30 - 5.80 M/cumm [facility] MCV 93.2 81.3 - 96.4 fL [facility] MCH 30.8 27.1 - 33.3 pg [facility] MCHC 33.1 32.3 - 35.7 g/dL [facility] RDW CV 15.4(H) 11.1 - 14.9 % [facility] RDW SD 51.7(H) 35.7 - 48.1 fL [facility] NRBC abs 0.00 0.00 - 0.01 K/cumm [facility] Blood 08/26/2024 12:2 5 AM CDT 08/26/2024 12:35 AM CDT Karlos Hargrove MD LAB BLOOD ORDERABLES Final Result Performing Organization Address [facility]/ZIP Co de Phone Number [facility] [place] [address] * Type and screen (08/26/2024 12:25 AM CDT) Yehuda, indirect Negative Comment:Patient has previous antibody history ABO Rh A Positive [facility] Blood 08/26/2024 12:2 5 AM CDT 08/26/2024 12:38 AM CDT Narrative [facility] - 08/26/2024 2:23 AM CDT Has the patient had Daratumumab or Isatuximab in the past 6 months?->Unknown us Karlos Hargrove MD LAB BLOOD BANK TEST ORDERA BLES Final Result Performing Organization Address [facility]/ZIP Co de Phone Number [facility] [place] [address] * (ABNORMAL) Uric acid (08/26/2024 12:25 AM CDT) Pathologist [facility] Uric acid 8.6(H) 3.0 - 8.0 mg/dL Blood 08/26/2024 12:2 5 AM CDT 08/26/2024 12:35 AM CDT Narrative [facility] - 08/26/2024 1:10 AM CDT Friday and only. Morning draw. . us Karlos Hargrove MD LAB BLOOD ORDERABLES Final Result [facility] [place] [address] * Phosphorus (08/26/2024 12:25 AM CDT) Phosphorus, pl 3.6 2.3 - 4.5 mg/dL Blood 08/26/2024 12:2 5 AM CDT 08/26/2024 12:35 AM CDT us Karlos Hargrove MD LAB BLOOD ORDERABLES Final Result Performing Organization Address [facility] Co de Phone Number [facility] [place] [address] * Magnesium (08/26/2024 12:25 AM CDT) [facility] Magnesium 1.7 1.4 - 2.5 mg/dL Blood 08/26/2024 12:2 5 AM CDT 08/26/2024 12:35 AM CDT Karlos Hargrove MD LAB BLOOD ORDERABLES Final Result Performing Organization Address [facility] de Phone Number [facility] [place] [address] * Lactate dehydrogenase (LD) (08/26/2024 12:25 AM CDT) [facility] Lactate dehydrogenase (LDH) 167 100 - 250 Units/L Blood 08/26/2024 12:2 5 AM CDT 08/26/2024 12:35 AM CDT Narrative [facility] - 08/26/2024 1:10 AM CDT Friday and only. Morning draw. Karlos Hargrove MD LAB BLOOD ORDERABLES Final Result Performing Organization Address [facility] Co de Phone Number [facility] [place] [address] * (ABNORMAL) Comprehensive metabolic panel (08/26/2024 12:25 AM CDT) [facility] Sodium 148(H) 135 - 145 mmol/L Potassium, pl 3.4 3.3 - 4.9 mmol/L [facility] Chloride 108 97 - 110 mmol/L [facility] CO2 28 22 - 32 mmol/L [facility] Anion gap 12 2 - 15 mmol/L [facility] BUN 35(H) 6 - 25 mg/dL [facility] Creatinine 2.27(H) 0.80 - 1.30 mg/dL [facility] Glucose 107 70 - 199 mg/dL [facility] Comment: Interpretive Data Fasting [...] 2022. Calcium 8.9 8.5 - 10.3 mg/dL [facility] Bilirubin, total 0.6 0.1 - 1.2 mg/dL [facility] Protein, pl 5.9(L) 6.5 - 8.5 g/dL [facility] Albumin 3.7 3.5 - 5.0 g/dL [facility] Alk phos 60 40 - 130 Units/L [facility] ALT 15 7 - 55 Units/L [facility] AST 13 10 - 50 Units/L [facility] Blood 08/26/2024 12:2 5 AM CDT 08/26/2024 12:35 AM CDT Karlos Hargrove MD LAB BLOOD ORDERABLES Final Result Performing Organization Address City/State/[facility] Co de Phone Number [facility] [place] [address] * US Vein Duplex Lower Extremity Bilateral Complete (08/25/2024 9:30 AM CDT) Anatomical Region Laterality Modality Vascular Bilateral Ultrasound 08/25/2024 8:37 AM CDT Narrative 08/27/2024 11:10 AM CDT [facility] - Department of Vascular Surgery, Vascular Laboratory [address] [place] [id number] Lower Extremity Venous Ultrasound Report Patient Name: BUFFY VALLE B : 1950 (73y 8m) Study Date: 08/25/2024 8:37:41 AM Gender: M Tech: JOSE Location: [id number] Ref Provider: OLGA KEITH Quality: Adequate Order Provider: OLGA KEITH PROCEDURES: Vascular Report: Venous Duplex imaging was performed bilaterally in the lower extremities. The common femoral, femoral, popliteal, posterior tibial, peroneal veins were evaluated for patency, spontaneity and phasicity with Doppler, compression and augmentation maneuvers. Great saphenous vein proximal at the junction was evaluated with compression maneuvers. INDICATIONS: Localized edema. FINDINGS: Performing Pipe Fittings Molder: Farzana Owens RVT. Bilateral: Venous Doppler signals [...] above. Electronically Signed By: Cesar Cabello MD [facility] [phone] 08/27/2024 10:10:26 AM CDT Procedure Note Cesar Cabello MD - 08/27/2024 [facility] - Department of Vascular Surgery,Vascular Laboratory [address] [place] [id number] Lower Extremity Venous Ultrasound Report Patient Name: BUFFY VALLE B : 1950 (73y 8m) Study Date: 08/25/2024 8:37:41 AM Gender: M Tech: Location: [id number] Ref Provider: OLGA KEITH Quality: Adequate Order Provider: OLGA KEITH PROCEDURES: Vascular Report: Venous Duplex imaging was performed bilaterally in the lower extremities.The common femoral, femoral, popliteal, posterior tibial, peroneal veins wereevaluated for patency, spontaneity and phasicity with Doppler, compression and augmentationmaneuvers. Great saphenous vein proximal at the junction was evaluated with compressionmaneuvers. INDICATIONS: Localized edema. FINDINGS: Performing Pipe Fittings Molder: Farzana Owens RVT. Bilateral: Venous Doppler signals [...] above. Electronically Signed By: Cesar Cabello MD [facility] [phone] 08/27/2024 10:10:26 AM CDT Olga Keith MD [facility] US PROCEDURES Final Result * (ABNORMAL) eGFR [...] Hargrove MD LAB BLOOD ORDERABLES Final Result [facility] [place] [address] * (ABNORMAL) Differential, auto (08/25/2024 12:34 AM CDT) Neutrophil abs 5.2 1.5 - 6.5 K/cumm Imm gran abs 0.1 0.0 - 0.1 K/cumm [facility] Lymphocyte abs 0.5(L) 0.8 - 3.3 K/cumm [facility] Monocyte abs 0.5 0.2 - 0.8 K/cumm [facility] Eosinophil abs 0.4 0.0 - 0.5 K/cumm [facility] Basophil abs 0.0 0.0 - 0.1 K/cumm [facility] Neutrophil pct 77.6 % [facility] Comment: Interpretive Data Percent cell count reference ranges are not reported, since discordance with absolute values may lead to misinterpretation of CBC data. Current Interpretive Data was last revised on 2017. Imm gran pct 0.7 % [facility] Comment: Interpretive Data Percent cell count reference ranges are not reported, since discordance with absolute values may lead to misinterpretation of CBC data. Current Interpretive Data was last revised on 2017. Lymphocyte pct 7.9 % [facility] Comment: Interpretive Data Percent cell count reference ranges are not reported, since discordance with absolute values may lead to misinterpretation of CBC data. Current Interpretive Data was last revised on 2017. Monocyte pct 7.5 % [facility] Comment: Interpretive Data Percent cell count reference ranges are not reported, since discordance with absolute values may lead to misinterpretation of CBC data. Current Interpretive Data was last revised on 2017. Eosinophil pct 6.0 % [facility] Comment: Interpretive Data Percent cell count reference ranges are not reported, since discordance with absolute values may lead to misinterpretation of CBC data. Current Interpretive Data was last revised on 2017. Basophil pct 0.3 % [facility] Comment: Interpretive Data Percent cell count reference ranges are not reported, since discordance with absolute values may lead to misinterpretation of CBC data. Current Interpretive Data was last revised on 2017. Blood 08/25/2024 12:3 4 AM CDT 08/25/2024 12:57 AM CDT Karlos Hargrove MD LAB BLOOD ORDERABLES Final Result [facility] [place] [address] * (ABNORMAL) CBC with auto differential (08/25/2024 12:34 AM CDT) WBC 6.7 3.8 - 9.9 K/cumm Hgb 11.2(L) 13.0 - 17.5 g/dL [facility] Hct 33.3(L) 38.9 - 50.3 % [facility] Plt 136(L) 150 - 400 K/cumm [facility] MPV 9.5 9.1 - 12.3 fL [facility] RBC 3.57(L) 4.30 - 5.80 M/cumm [facility] MCV 93.3 81.3 - 96.4 fL [facility] MCH 31.4 27.1 - 33.3 pg [facility] MCHC 33.6 32.3 - 35.7 g/dL [facility] RDW CV 15.3(H) 11.1 - 14.9 % [facility] RDW SD 51.0(H) 35.7 - 48.1 fL [facility] NRBC abs 0.00 0.00 - 0.01 K/cumm [facility] Blood 08/25/2024 12:3 4 AM CDT 08/25/2024 12:57 AM CDT us Karlos Hargrove MD LAB BLOOD ORDERABLES Final Result Performing Organization Address [facility] Co de Phone Number [facility] [place] [address] * Phosphorus (08/25/2024 12:34 AM CDT) [facility] Phosphorus, pl 3.7 2.3 - 4.5 mg/dL Blood 08/25/2024 12:3 4 AM CDT 08/25/2024 12:55 AM CDT us Karlos Hargrove MD LAB BLOOD ORDERABLES Final Result Performing Organization Address [facility] Co de Phone Number [facility] [place] [address] * Magnesium (08/25/2024 12:34 AM CDT) [facility] Magnesium 1.9 1.4 - 2.5 mg/dL Blood 08/25/2024 12:3 4 AM CDT 08/25/2024 12:55 AM CDT us Karlos Hargrove MD LAB BLOOD ORDERABLES Final Result Performing Organization Address [facility] de Phone Number [facility] [place] [address] * (ABNORMAL) Comprehensive metabolic panel (08/25/2024 12:34 AM CDT) [facility] Sodium 147(H) 135 - 145 mmol/L Potassium, pl 3.2(L) 3.3 - 4.9 mmol/L [facility] Chloride 109 97 - 110 mmol/L [facility] CO2 26 22 - 32 mmol/L [facility] Anion gap 12 2 - 15 mmol/L [facility] BUN 47(H) 6 - 25 mg/dL [facility] Creatinine 2.74(H) 0.80 - 1.30 mg/dL [facility] Glucose 154 70 - 199 mg/dL [facility] Comment: Interpretive Data Fasting [...] 2022. Calcium 8.4(L) 8.5 - 10.3 mg/dL [facility] Bilirubin, total 0.4 0.1 - 1.2 mg/dL [facility] Protein, pl 5.9(L) 6.5 - 8.5 g/dL [facility] Albumin 3.9 3.5 - 5.0 g/dL [facility] Alk phos 61 40 - 130 Units/L [facility] ALT 18 7 - 55 Units/L [facility] AST 17 10 - 50 Units/L [facility] Blood 08/25/2024 12:3 4 AM CDT 08/25/2024 12:55 AM CDT Karlos Hargrove MD LAB BLOOD ORDERABLES Final Result [facility] Department [place] [address] * Sodium, urine, random (08/24/2024 5:16 PM CDT) Sodium, ur 44 mmol/L Comment: Interpretive Data No reference range established. Current interpretive data was last revised 2018. Urine 08/24/2024 5:16 PM CDT 08/24/2024 5:31 PM CDT us Olga Keith MD LAB URINE ORDERABLES Final Resul t [facility] [place] [address] * CT Abdomen Pelvis WO Contrast (08/24/2024 [...] [facility] Neutrophil pct 73.7 % [facility] Comment: Interpretive Data Percent cell count reference ranges are not reported, since discordance with absolute values may lead to misinterpretation of CBC data. Current Interpretive Data was last revised on 2017. Imm gran pct 0.6 % [facility] Comment: Interpretive Data Percent cell count reference ranges are not reported, since discordance with absolute values may lead to misinterpretation of CBC data. Current Interpretive Data was last revised on 2017. Lymphocyte pct 10.0 % [facility] Comment: Interpretive Data Percent cell count reference ranges are not reported, since discordance with absolute values may lead to misinterpretation of CBC data. Current Interpretive Data was last revised on 2017. Monocyte pct 8.3 % [facility] Comment: Interpretive Data Percent cell count reference ranges are not reported, since discordance with absolute values may lead to misinterpretation of CBC data. Current Interpretive Data was last revised on 2017. Eosinophil pct 7.1 % [facility] Comment: Interpretive Data Percent cell count reference ranges are not reported, since discordance with absolute values may lead to misinterpretation of CBC data. Current Interpretive Data was last revised on 2017. Basophil pct 0.3 % [facility] Comment: Interpretive Data Percent cell count reference ranges are not reported, since discordance with absolute values may lead to misinterpretation of CBC data. Current Interpretive Data was last revised on 2017. Blood 08/24/2024 2:30 AM CDT 08/24/2024 1:28 AM CDT Karlos Hargrove MD LAB BLOOD ORDERABLES Final Result Performing Organization Address [facility]/ZIP Co de Phone Number [facility] [place] [address] * (ABNORMAL) CBC with auto differential (08/24/2024 2:30 AM CDT) WBC 6.6 3.8 - 9.9 K/cumm Hgb 10.9(L) 13.0 - 17.5 g/dL [facility] Hct 33.1(L) 38.9 - 50.3 % [facility] Plt 130(L) 150 - 400 K/cumm [facility] MPV 10.0 9.1 - 12.3 fL [facility] RBC 3.50(L) 4.30 - 5.80 M/cumm [facility] MCV 94.6 81.3 - 96.4 fL [facility] MCH 31.1 27.1 - 33.3 pg [facility] MCHC 32.9 32.3 - 35.7 g/dL [facility] RDW CV 15.3(H) 11.1 - 14.9 % [facility] RDW SD 51.8(H) 35.7 - 48.1 fL [facility] NRBC abs 0.00 0.00 - 0.01 K/cumm [facility] Blood 08/24/2024 2:30 AM CDT 08/24/2024 1:28 AM CDT Karlos Hargrove MD LAB BLOOD ORDERABLES Final Result Performing Organization Address [facility]/ZIP Co de Phone Number [facility] [place] [address] * (ABNORMAL) eGFR (08/24/2024 1:12 AM CDT) [...] Hargrove MD LAB BLOOD ORDERABLES Final Result [facility] [place] [address] * aPTT (08/24/2024 1:12 AM CDT) aPTT [...] BLOOD ORDERABLES Final Result Performing Organization Address [facility] Co de Phone Number [facility] [place] [employer] [place] [address] * Protime-INR (08/24/2024 1:12 AM CDT) PT 11.7 9.7 - 13.0 sec INR 1.08 0.90 - 1.20 [facility] Comment: Interpretive data Oral [...] BLOOD ORDERABLES Final Result Performing Organization Address [facility] Co [place] [address] * Type and screen (08/24/2024 1:12 AM CDT) Yehuda, indirect Negative Comment:Patient has previous antibody history ABO Rh A Positive [facility] Blood 08/24/2024 1:12 AM CDT 08/24/2024 1:36 AM CDT Narrative [facility] - 08/24/2024 2:36 AM CDT Has the patient had Daratumumab or Isatuximab in the past 6 months?->Unknown Karlos Hargrove MD LAB BLOOD BANK TEST ORDERA BLES Final Result Performing Organization Address [facility] Co de Phone Number [facility] [place] [employer] [place] [address] * (ABNORMAL) Uric acid (08/24/2024 1:12 AM CDT) Pathologist [facility] Uric acid 9.5(H) 3.0 - 8.0 mg/dL Blood 08/24/2024 1:12 AM CDT 08/24/2024 1:35 AM CDT Narrative [facility] - 08/24/2024 2:47 AM CDT Friday and only. Morning draw. . us Karlos Hargrove MD LAB BLOOD ORDERABLES Final Result Performing Organization Address [facility] Co de Phone Number [facility] [place] [employer] [place] [address] * Phosphorus (08/24/2024 1:12 AM CDT) [facility] Phosphorus, pl 4.5 2.3 - 4.5 mg/dL Blood 08/24/2024 1:12 AM CDT 08/24/2024 1:35 AM CDT us Karlos Hargrove MD LAB BLOOD ORDERABLES Final Result Performing Organization Address [facility] Co de Phone Number [facility] [place] [address] * Magnesium (08/24/2024 1:12 AM CDT) [facility] Magnesium 2.0 1.4 - 2.5 mg/dL Blood 08/24/2024 1:12 AM CDT 08/24/2024 1:35 AM CDT us Karlos Hargrove MD LAB BLOOD ORDERABLES Final Result Performing Organization Address [facility] Co de Phone Number [facility] [place] [address] * Lactate dehydrogenase (LD) (08/24/2024 1:12 AM CDT) Lactate dehydrogenase (LDH) 226 100 - 250 Units/L Blood 08/24/2024 1:12 AM CDT 08/24/2024 1:35 AM CDT Narrative [facility] - 08/24/2024 2:47 AM CDT Friday and only. Morning draw. Karlos Hargrove MD LAB BLOOD ORDERABLES Final Result [facility] [place] [address] * (ABNORMAL) Comprehensive metabolic panel (08/24/2024 1:12 AM CDT) Pathologist [facility] Sodium 148(H) 135 - 145 mmol/L Potassium, pl 3.6 3.3 - 4.9 mmol/L [facility] Chloride 111(H) 97 - 110 mmol/L [facility] CO2 25 22 - 32 mmol/L [facility] Anion gap 12 2 - 15 mmol/L [facility] BUN 56(H) 6 - 25 mg/dL [facility] Creatinine 3.16(H) 0.80 - 1.30 mg/dL [facility] Glucose 102 70 - 199 mg/dL [facility] Comment: Interpretive Data Fasting [...] 2022. Calcium 8.5 8.5 - 10.3 mg/dL [facility] Bilirubin, total 0.4 0.1 - 1.2 mg/dL [facility] Protein, pl 5.7(L) 6.5 - 8.5 g/dL [facility] Albumin 3.6 3.5 - 5.0 g/dL [facility] Alk phos 62 40 - 130 Units/L [facility] ALT 16 7 - 55 Units/L [facility] AST 11 10 - 50 Units/L [facility] Blood 08/24/2024 1:12 AM CDT 08/24/2024 1:35 AM CDT Karlos Hargrove MD LAB BLOOD ORDERABLES Final Result [facility] [place] [address] * US Kidney Complete (08/23/2024 8:12 PM [...] Straw Yellow Clarity, ur Clear Clear [facility] Specific gravity, ur 1.011 1.003 - 1.030 [facility] pH, urine 5.5 [facility] Comment: Interpretive Data U rine pH is affected by diet, medications, systemic acid-base disturbances, and renal tubular function. pH may affect urinary stone formation. For example, urine pH below 6.0 may help reduce the tendency for calcium phosphate stones and pH greater than 6.0 may reduce the tendency for uric acid stone formation. Source: [facility] [employer] Current Interpretive Data was last revised on 2017 Protein, ur ql Negative Negative [facility] Glucose, ur ql Negative Negative [facility] Ketones, ur Negative Negative [facility] Bilirubin, ur Negative Negative [facility] Blood, ur 2+(A) Negative [facility] Urobilinogen, ur <2.0 <2.0 mg/dL [facility] Nitrite, ur Negative Negative [facility] Leukocyte esterase, ur Trace(A) Negative [facility] UA reflex comment Reflex to microscopic UA will be performed. [facility] Urine 08/23/2024 7:01 PM CDT 08/23/2024 7:15 PM CDT us Kinga J. Erckmann OPERATIONS RESEARCH MANAGER LAB URINE ORDERABLES Angeles l Result Performing Organization Address [facility] Co de Phone Number [facility] [place] [address] * Protein / creatinine ratio, urine, random (08/23/2024 7:01 PM CDT) Protein, ur, quant 6.4 mg/dL Comment: Interpretive Data No reference range established. Current interpretive data was last revised 2018. Creatinine Ur 74.0 mg/dL [facility] Comment: Interpretive Data No reference range established. Current interpretive data was last revised 2018. Protein/creatinin e ratio 86.5 0.0 - 180.0 mg/g CR [facility] Urine 08/23/2024 7:01 PM CDT 08/23/2024 7:28 PM CDT Kinga Jones OPERATIONS RESEARCH MANAGER LAB URINE ORDERABLES Angeles l Result Performing Organization Address [facility] Co de Phone Number [facility] [place] [address] * (ABNORMAL) Urinalysis, microscopic only (08/23/2024 7:01 PM CDT) Pathologist [facility] WBC, ur 0-5 0 - 5 /HPF RBC, ur 6-10(A) 0 - 2 /HPF [facility] Urine 08/23/2024 7:01 PM CDT 08/23/2024 7:15 PM CDT Kinga Jones OPERATIONS RESEARCH MANAGER LAB URINE ORDERABLES Angeles l Result Performing Organization Address [facility] Co de Phone Number [facility] [place] [address] * Urine culture Urine, clean voided (08/23/2024 7:01 PM CDT) Pathologist [facility] Report Final Report: Less than 100,000 colonies/mL (clinically insignificant growth based on current clinical standards) Organism (CLINICALLY INSIGNIFICANT GROWTH [facility] Urine, clean voided 08/23/2024 7:01 PM CDT 08/23/2024 8:52 PM CDT Narrative [facility] - 08/25/2024 8:02 AM CDT Indications for Culture:->Other (specify) Other Indication:->elevated creatinine Specimen received in a sterile container. Testing performed by [facility] ([phone]) us Kinga Jones NP LAB MICROBIOLOGY - GENERA L ORDERABLES Final Result Performing Organization Address [facility]/ZIP Co de Phone Number [facility] [place] [address] * Immunotyping, serum with interpretation (08/23/2024 6:04 PM CDT) Immunosubtraction Please see comment Comment: NO PARAPROTEIN DETECTED Reviewed and signed by Fernando Nunez MD, PhD 08/24/2024 Blood 08/23/2024 6:04 PM CDT 08/23/2024 6:13 PM CDT us Hermelindo Butler MD LAB BLOOD ORDER ELANA Final Result Performing Organization Address [facility]/ZIP Co de Phone Number [facility] [place] [address] * (ABNORMAL) eGFR (08/23/2024 6:04 PM CDT) [...] MD LAB BLOOD ORDER ELANA Final Result [facility] [place] [address] * (ABNORMAL) Differential, auto (08/23/2024 6:04 PM CDT) Pathologist [facility] Neutrophil abs 6.5 1.5 - 6.5 K/cumm Imm gran abs 0.0 0.0 - 0.1 K/cumm [facility] Lymphocyte abs 0.7(L) 0.8 - 3.3 K/cumm [facility] Monocyte abs 0.6 0.2 - 0.8 K/cumm [facility] Eosinophil abs 0.6(H) 0.0 - 0.5 K/cumm [facility] Basophil abs 0.0 0.0 - 0.1 K/cumm [facility] Neutrophil pct 77.0 % [facility] Comment: Interpretive Data Percent cell count reference ranges are not reported, since discordance with absolute values may lead to misinterpretation of CBC data. Current Interpretive Data was last revised on 2017. Imm gran pct 0.5 % [facility] Comment: Interpretive Data Percent cell count reference ranges are not reported, since discordance with absolute values may lead to misinterpretation of CBC data. Current Interpretive Data was last revised on 2017. Lymphocyte pct 8.3 % [facility] Comment: Interpretive Data Percent cell count reference ranges are not reported, since discordance with absolute values may lead to misinterpretation of CBC data. Current Interpretive Data was last revised on 2017. Monocyte pct 7.3 % [facility] Comment: [...] MD LAB BLOOD ORDER ELANA Final Result [facility] [place] [address] * (ABNORMAL) Immunoglobulin free light chains (08/23/2024 6:04 PM CDT) Pinhook/Lambda ratio [facility] <0.40 0.26 - 1.65 Comment: Interpretive Data The Binding Site FreeLite assay procedure was used. Results from different manufacturers or methods may not be comparable. Serial testing should be performed using the same methods and instrumentation. Current Interpretive Data was last revised on 2023. Pinhook free light chain [facility] <0.06(L) 0.33 - 1.94 mg/dL [facility] Comment: Interpretive Data The Binding Site FreeLite assay procedure was used. Results from different manufacturers or methods may not be comparable. Serial testing should be performed using the same methods and instrumentation. Current Interpretive Data was last revised on 2023. Lambda free light chain [facility] 0.15(L) 0.57 - 2.63 mg/dL [facility] Comment: Interpretive Data The Binding Site FreeLite assay procedure was used. Results from different manufacturers or methods may not be comparable. Serial testing should be performed using the same methods and instrumentation. Current Interpretive Data was last revised on 2023. Blood 08/23/2024 6:04 PM CDT 08/23/2024 6:12 PM CDT Hermelindo Butler MD LAB BLOOD ORDER ELANA Final Result [facility] [place] [address] * (ABNORMAL) CBC with auto differential (08/23/2024 6:04 PM CDT) WBC 8.5 3.8 - 9.9 K/cumm Hgb 11.8(L) 13.0 - 17.5 g/dL [facility] Hct 35.6(L) 38.9 - 50.3 % [facility] Plt 131(L) 150 - 400 K/cumm [facility] MPV 9.8 9.1 - 12.3 fL [facility] RBC 3.78(L) 4.30 - 5.80 M/cumm [facility] MCV 94.2 81.3 - 96.4 fL [facility] MCH 31.2 27.1 - 33.3 pg [facility] MCHC 33.1 32.3 - 35.7 g/dL [facility] RDW CV 15.2(H) 11.1 - 14.9 % [facility] RDW SD 51.2(H) 35.7 - 48.1 fL [facility] NRBC abs 0.00 0.00 - 0.01 K/cumm [facility] Blood 08/23/2024 6:04 PM CDT 08/23/2024 6:12 PM CDT Hermelindo Butler MD LAB BLOOD ORDER ELANA Final Result Performing Organization Address [facility]/ZIP Co de Phone Number [facility] [place] [address] * (ABNORMAL) Uric acid (08/23/2024 6:04 PM CDT) Pathologist [facility] Uric acid 9.5(H) 3.0 - 8.0 mg/dL Blood 08/23/2024 6:04 PM CDT 08/23/2024 6:13 PM CDT Hermelindo Butler MD LAB BLOOD ORDER ELANA Final Result Performing Organization Address [facility] Co de Phone Number MT [facility] [place] [address] * (ABNORMAL) Protein electrophoresis with reflex, serum with interpretation (08/23/2024 6:04 PM CDT) [facility] Protein, sr 5.9(L) 6.2 - 8.2 g/dL Albumin 3.9 3.2 - 5.0 g/dL [facility] Alpha-1 globulin 0.4 0.2 - 0.4 g/dL [facility] Alpha-2 globulin 0.7 0.5 - 1.0 g/dL [facility] Beta-1 globulin 0.4 0.3 - 0.6 g/dL [facility] Beta-2 globulin 0.3 0.2 - 0.6 g/dL [facility] Gamma globulin 0.2(L) 0.5 - 1.7 g/dL [facility] SPEP interp Please see comment [facility] Comment: No apparent monoclonal peak Decreased gamma globulins Electrophoretic pattern appears similar to previous sample 08/04/24 See immunotyping for further information Reviewed and signed by Fernando Nunez MD, PhD 08/24/2024 Blood 08/23/2024 6:04 PM CDT 08/23/2024 6:13 PM CDT us Hermelindo Butler MD LAB BLOOD ORDER ELANA Final Result [facility] [place] [address] * (ABNORMAL) Phosphorus (08/23/2024 6:04 PM CDT) Pathologist [facility] Phosphorus, pl 4.7(H) 2.3 - 4.5 mg/dL Blood 08/23/2024 6:04 PM CDT 08/23/2024 6:13 PM CDT Hermelindo Butler MD LAB BLOOD ORDER ELANA Final Result Performing Organization Address [facility] Co de Phone Number [facility] [place] [address] * Magnesium (08/23/2024 6:04 PM CDT) [facility] Magnesium 1.9 1.4 - 2.5 mg/dL Blood 08/23/2024 6:04 PM CDT 08/23/2024 6:13 PM CDT Hermelindo Butler MD LAB BLOOD ORDER ELANA Final Result Performing Organization Address [facility] Co de Phone Number [facility] [place] [address] * Lactate dehydrogenase (LD) (08/23/2024 6:04 PM CDT) Pathologist [facility] Lactate dehydrogenase (LDH) 198 100 - 250 Units/L Blood 08/23/2024 6:04 PM CDT 08/23/2024 6:13 PM CDT Hermelindo Butler MD LAB BLOOD ORDER ELANA Final Result Performing Organization Address [facility]/ZIP Co de Phone Number [facility] [place] [address] * (ABNORMAL) IgA (08/23/2024 6:04 PM CDT) Immunoglobulin A <50(L) 70 - 400 mg/dL Blood 08/23/2024 6:04 PM CDT 08/23/2024 6:13 PM CDT Hermelindo Butler MD LAB BLOOD ORDER ELANA [place] [address] * (ABNORMAL) IgM (08/23/2024 6:04 PM CDT) Pathologist [facility] Immunoglobulin M <25(L) 40 - 230 mg/dL Blood 08/23/2024 6:04 PM CDT 08/23/2024 6:13 PM CDT Hermelindo Butler MD LAB BLOOD ORDER ELANA Final Result Performing Organization Address [facility] Co [place] [address] * (ABNORMAL) IgG (08/23/2024 6:04 PM CDT) [facility] Immunoglobulin G <300(L) 700 - 1,600 mg/dL Blood 08/23/2024 6:04 PM CDT 08/23/2024 6:13 PM CDT Hermelindo Butler MD LAB BLOOD ORDER ELANA Final Result [facility] [place] [address] * (ABNORMAL) Comprehensive metabolic panel (08/23/2024 6:04 PM CDT) Sodium 146(H) 135 - 145 mmol/L Potassium, pl 3.8 3.3 - 4.9 mmol/L [facility] Chloride 107 97 - 110 mmol/L [facility] CO2 26 22 - 32 mmol/L [facility] Anion gap 13 2 - 15 mmol/L [facility] BUN 58(H) 6 - 25 mg/dL [facility] Creatinine 3.37(H) 0.80 - 1.30 mg/dL [facility] Glucose 89 70 - 199 mg/dL [facility] Comment: Interpretive Data Fasting [...] 2022. Calcium 8.9 8.5 - 10.3 mg/dL [facility] Bilirubin, total 0.4 0.1 - 1.2 mg/dL [facility] Protein, pl 6.2(L) 6.5 - 8.5 g/dL [facility] Albumin 4.0 3.5 - 5.0 g/dL [facility] Alk phos 68 40 - 130 Units/L [facility] ALT 16 7 - 55 Units/L [facility] AST 12 10 - 50 Units/L [facility] Blood 08/23/2024 6:04 PM CDT 08/23/2024 6:13 PM CDT Hermelindo Butler MD LAB BLOOD ORDER ELANA Final Result [facility] [place] [address] * SCAN - LABS (08/20/2024) us Provider Scanning Final Result * SCAN - LABS (08/10/2024) us Provider Scanning Final Result * US Kidney Complete (08/06/2024 2:42 PM PIPE OR STEAM FITTER FURNACE INSTALLER) Anatomical Region Laterality Modality Kidney N/A Ultrasound 08/06/2024 3:27 PM PIPE OR STEAM FITTER FURNACE INSTALLER Impressions 08/06/2024 3:27 PM PIPE OR STEAM FITTER FURNACE INSTALLER 1. Mild nephromegaly with mild to moderate hydronephrosis bilaterally. 2. Incomplete bladder emptying with post void bladder residual of 397 mL. Electronically signed by: Dylan Tinajero M.D. Narrative 08/06/2024 3:27 PM PIPE OR STEAM FITTER FURNACE INSTALLER EXAMINATION: COMPLETE RENAL SONOGRAM HISTORY: Rising creatinine. [...] by: Dylan Tinajero M.D. Hermelindo Butler MD IMG US PROCEDUR ES Final Result * (ABNORMAL) Urinalysis reflex to microscopic (08/06/2024 9:19 AM PIPE OR STEAM FITTER FURNACE INSTALLER) Pathologist [facility] Color, ur Straw Yellow Clarity, ur Clear Clear [facility] Specific gravity, ur 1.013 1.003 - 1.030 [facility] pH, urine 5.5 [facility] Comment: Interpretive Data U rine pH is affected by diet, medications, systemic acid-base disturbances, and renal tubular function. pH may affect urinary stone formation. For example, urine pH below 6.0 may help reduce the tendency for calcium phosphate stones and pH greater than 6.0 may reduce the tendency for uric acid stone formation. Source: [facility] [employer] Current Interpretive Data was last revised on 2017 Protein, ur ql Negative Negative [facility] Glucose, ur ql Negative Negative [facility] Ketones, ur Negative Negative [facility] Bilirubin, ur Negative Negative [facility] Blood, ur 3+(A) Negative [facility] Urobilinogen, ur <2.0 <2.0 mg/dL [facility] Nitrite, ur Negative Negative [facility] Leukocyte esterase, ur Trace(A) [facility] UA reflex comment Reflex to microscopic UA will be performed. [facility] Urine 08/06/2024 9:19 AM PIPE OR STEAM FITTER FURNACE INSTALLER 08/06/2024 9:19 AM PIPE OR STEAM FITTER FURNACE INSTALLER Lyndsey Fagan NP LAB URINE ORDERABLES Angeles nicole Result [facility] [place] [address] * Protein / creatinine ratio, urine, random (08/06/2024 9:19 AM PIPE OR STEAM FITTER FURNACE INSTALLER) Pathologist [facility] Protein, ur, quant 7.9 mg/dL Comment: Interpretive Data No reference range established. Current interpretive data was last revised 2018. Creatinine Ur 77.4 mg/dL [facility] Comment: Interpretive Data No reference range established. Current interpretive data was last revised 2018. Protein/creatinin e ratio 102.1 0.0 - 180.0 mg/g CR [facility] Urine 08/06/2024 9:19 AM PIPE OR STEAM FITTER FURNACE INSTALLER 08/06/2024 9:41 AM PIPE OR STEAM FITTER FURNACE INSTALLER Lyndsey Fagan NP LAB URINE ORDERABLES Angeles l Result Performing Organization Address [facility] de Phone Number [facility] [place] [address] * (ABNORMAL) Urinalysis, microscopic only (08/06/2024 9:19 AM PIPE OR STEAM FITTER FURNACE INSTALLER) WBC, ur 6-10(A) 0 - 5 /HPF RBC, ur 21-50(A) 0 - 2 /HPF [facility] Bacteria, ur Trace(A) [facility] Mucous, ur Present(A) [facility] Urine 08/06/2024 9:19 AM PIPE OR STEAM FITTER FURNACE INSTALLER 08/06/2024 9:19 AM PIPE OR STEAM FITTER FURNACE INSTALLER Lyndsey Fagan NP LAB URINE ORDERABLES Angeles l Result Performing Organization Address [facility] de Phone Number [facility] [place] [address] * (ABNORMAL) eGFR (08/06/2024 7:43 AM PIPE OR STEAM FITTER FURNACE INSTALLER) eGFR 31(L) >=60 mL/min/1. 73 m2 Comment: [...] last reviewed 2021. Blood 08/06/2024 7:43 AM PIPE OR STEAM FITTER FURNACE INSTALLER 08/06/2024 7:52 AM PIPE OR STEAM FITTER FURNACE INSTALLER us Hermelindo Butler MD LAB BLOOD ORDER ELANA Final Result [facility] [place] [address] * (ABNORMAL) Differential, auto (08/06/2024 7:43 AM PIPE OR STEAM FITTER FURNACE INSTALLER) Neutrophil abs 5.4 1.5 - 6.5 K/cumm Comment:Testing performed by : [facility], [address] [place], [place] [phone] Lymphocyte abs 0.8 0.8 - 3.3 K/cumm CERNER BJ Comment:Testing performed by : [facility], [address] [place] [phone] Monocyte abs 0.5 0.2 - 0.8 K/cumm CERNER BJ Comment:Testing performed by : [facility], [address] [place] [phone] Eosinophil abs 0.7(H) 0.0 - 0.5 K/cumm CERNER BJ Comment:Testing performed by : [facility], [address] [place] [phone] Basophil abs 0.0 0.0 - 0.1 K/cumm CERNER BJ Comment:Testing performed by : [facility], [address] [place], [place] [phone] Neutrophil pct 72.4 % CERNER BJ Comment: Interpretive Data Percent cell count reference ranges are not reported, since discordance with absolute values may lead to misinterpretation of CBC data. Current Interpretive Data was last revised on 2017. Testing performed by: [facility], [address] [place] [phone] Lymphocyte pct 10.4 % [facility] Comment: Interpretive Data Percent cell count reference ranges are not reported, since discordance with absolute values may lead to misinterpretation of CBC data. Current Interpretive Data was last revised on 2017. Testing performed by: [facility], [address] [place] [phone] Monocyte pct 7.3 % MT DUARTE Comment: Interpretive Data Percent cell count reference ranges are not reported, since discordance with absolute values may lead to misinterpretation of CBC data. Current Interpretive Data was last revised on 2017. Testing performed by: [facility], [address] [place] [phone] Eosinophil pct 9.4 % MT SU[facility] Comment: Interpretive Data Percent cell count reference ranges are not reported, since discordance with absolute values may lead to misinterpretation of CBC data. Current Interpretive Data was last revised on 2017. Testing performed by: [facility], [address] [place] [phone] Basophil pct 0.5 % MT SU[facility] Comment: Interpretive Data Percent cell count reference ranges are not reported, since discordance with absolute values may lead to misinterpretation of CBC data. Current Interpretive Data was last revised on 2017. Testing performed by: [facility], [address] [place] [phone] Blood 08/06/2024 7:43 AM PIPE OR STEAM FITTER FURNACE INSTALLER 08/06/2024 7:51 AM PIPE OR STEAM FITTER FURNACE INSTALLER us Hermelindo Butler MD LAB BLOOD ORDER ELANA Final Result [facility] [place] [address] * (ABNORMAL) CBC with auto differential (08/06/2024 7:43 AM PIPE OR STEAM FITTER FURNACE INSTALLER) WBC 7.5 3.8 - 9.9 K/cumm Comment:Testing performed by : [facility], [address] [place] [address] Hgb 13.7 13.0 - 17.5 g/dL CERNER BJ Comment:Testing performed by : [facility], [address] [place] [address] Hct 40.6 38.9 - 50.3 % CERNER BJ Comment:Testing performed by : [facility], [address] [place] [address] Plt 169 150 - 400 K/cumm CERNER BJ Comment:Testing performed by : [facility], [address] [place] [address] MPV 7.5 6.8 - 10.4 fL CERNER BJ Comment:Testing performed by : [facility], [address] [place], [place] [phone] RBC 4.37 4.30 - 5.80 M/cumm CERNER BJ Comment:Testing performed by : [facility], [address] [place] [address] MCV 92.7 81.3 - 96.4 fL CERNER BJ Comment:Testing performed by : [facility], [address] [place] [address] MCH 31.3 27.1 - 33.3 pg CERNER BJ Comment:Testing performed by : [facility], [address] [place] [address] MCHC 33.8 32.3 - 35.7 g/dL CERNER BJ Comment:Testing performed by : [facility], [address] [place] [address] RDW CV 16.5(H) 11.1 - 14.9 % CERNER BJ Comment:Testing performed by : [facility], [address] [place] [address] NRBC abs 0.00 0.00 - 0.01 K/cumm CERNER BJ Comment:Testing performed by : [facility], [address] [place] [address] Blood 08/06/2024 7:43 AM PIPE OR STEAM FITTER FURNACE INSTALLER 08/06/2024 7:51 AM PIPE OR STEAM FITTER FURNACE INSTALLER Hermelindo Butler MD LAB BLOOD ORDER ELANA Final Result Performing Organization Address [facility] Co de Phone Number [facility] [place] [address] * (ABNORMAL) PSA diagnostic (08/06/2024 7:43 AM PIPE OR STEAM FITTER FURNACE INSTALLER) PSA-Total 6.28(H) <=6.20 ng/mL Comment: Interpretive Data [...] last revised 21. Blood 08/06/2024 7:43 AM PIPE OR STEAM FITTER FURNACE INSTALLER 08/06/2024 7:52 AM PIPE OR STEAM FITTER FURNACE INSTALLER us Hermelindo Butler MD LAB BLOOD ORDER ELANA Final Result Performing Organization Address [facility] de Phone Number [facility] [place] [address] * Lactate dehydrogenase (LD) (08/06/2024 7:43 AM PIPE OR STEAM FITTER FURNACE INSTALLER) Lactate dehydrogenase (LDH) 161 100 - 250 Units/L Blood 08/06/2024 7:43 AM PIPE OR STEAM FITTER FURNACE INSTALLER 08/06/2024 7:52 AM PIPE OR STEAM FITTER FURNACE INSTALLER us Hermelindo Butler MD LAB BLOOD ORDER ELANA Final Result Performing Organization Address [facility] de Phone Number [facility] [place] [address] * (ABNORMAL) Lipid panel (08/06/2024 7:43 AM PIPE OR STEAM FITTER FURNACE INSTALLER) Cholesterol 128 30 - 199 mg/dL Comment: [...] revised on 2018. Triglycerides 149 <=149 mg/dL [facility] Comment: Interpretive Data Ages [...] revised on 2018. HDL 38(L) >=40 mg/dL [facility] Comment: Interpretive Data Ages [...] 2018. LDL, calculated 64 <=129 mg/dL MT [facility] Comment: Interpretive Data Ages [...] revised on 2024. Non-HDL Cholesterol 90 mg/dL [facility] Comment: Interpretive Data Ages < [...] last revised on 2018. Chol/HDL ratio 3 [facility] Blood 08/06/2024 7:43 AM PIPE OR STEAM FITTER FURNACE INSTALLER 08/06/2024 7:52 AM PIPE OR STEAM FITTER FURNACE INSTALLER us Hermelindo Butler MD LAB BLOOD ORDER ELANA Final Result [facility] Department [place] [address] * (ABNORMAL) Comprehensive metabolic panel (08/06/2024 7:43 AM PIPE OR STEAM FITTER FURNACE INSTALLER) Sodium 145 135 - 145 mmol/L Potassium, pl 4.2 3.3 - 4.9 mmol/L [facility] Chloride 108 97 - 110 mmol/L [facility] CO2 30 22 - 32 mmol/L [facility] Anion gap 7 2 - 15 mmol/L [facility] BUN 51(H) 6 - 25 mg/dL [facility] Creatinine 2.21(H) 0.80 - 1.30 mg/dL [facility] Glucose 113 70 - 199 mg/dL [facility] Comment: Interpretive Data Fasting [...] 2022. Calcium 9.2 8.5 - 10.3 mg/dL [facility] Bilirubin, total 0.5 0.1 - 1.2 mg/dL [facility] Protein, pl 6.2(L) 6.5 - 8.5 g/dL [facility] Albumin 4.1 3.5 - 5.0 g/dL [facility] Alk phos 61 40 - 130 Units/L [facility] ALT 15 7 - 55 Units/L [facility] AST 16 10 - 50 Units/L [facility] Blood 08/06/2024 7:43 AM PIPE OR STEAM FITTER FURNACE INSTALLER 08/06/2024 7:52 AM PIPE OR STEAM FITTER FURNACE INSTALLER us Hermelindo Butler MD LAB BLOOD ORDER ELANA Final Result [facility] Department [place] [address] * aPTT (08/03/2024 9:21 AM PIPE OR STEAM FITTER FURNACE INSTALLER) aPTT 31 28 - 38 sec Comment: Interpretive Data Heparin therapeutic range: 66.0 - 100.0 seconds. Range based on correlation with therapeutic heparin activity range of 0.3 - 0.7 Units/mL. Current interpretive data was last revised on 2023. Blood 08/03/2024 9:21 AM PIPE OR STEAM FITTER FURNACE INSTALLER 08/03/2024 9:47 AM PIPE OR STEAM FITTER FURNACE INSTALLER Hermelindo Butler MD LAB BLOOD ORDER ELANA Final Result Performing Organization Address [facility] de Phone Number [facility] [place] [address] * Protime-INR (08/03/2024 9:21 AM PIPE OR STEAM FITTER FURNACE INSTALLER) PT 11.5 9.7 - 13.0 sec INR 1.06 0.90 - 1.20 [facility] Comment: Interpretive data Oral anticoagulant therapeutic ranges: Venous thromboembolism prophylaxis or treatment: 2.0-3.0 CARDIOLOGY Standard range: 2.0-3.0 High-intensity range: 2.5-3.5 Refer to indication-specific guidelines for appropriate target ranges for prosthetic heart valve replacement. Current interpretive data was last revised on 2019. Blood 08/03/2024 9:21 AM PIPE OR STEAM FITTER FURNACE INSTALLER 08/03/2024 9:47 AM PIPE OR STEAM FITTER FURNACE INSTALLER Hermelindo Butler MD LAB BLOOD ORDER ELANA Final Result Performing Organization Address [facility] de Phone Number [facility] [place] [employer] [place] [address] * Immunotyping, serum with interpretation (08/03/2024 7:40 AM PIPE OR STEAM FITTER FURNACE INSTALLER) Immunosubtraction Please see comment Comment: NO PARAPROTEIN DETECTED Reviewed and signed by Hermelindo Mcnulty MD 08/04/2024 Blood 08/03/2024 7:40 AM PIPE OR STEAM FITTER FURNACE INSTALLER 08/03/2024 8:24 AM PIPE OR STEAM FITTER FURNACE INSTALLER Hermelindo Butler MD LAB BLOOD ORDER ELANA Final Result Performing Organization Address [facility] Co de Phone Number [facility] [place] [address] * (ABNORMAL) eGFR (08/03/2024 7:40 AM PIPE OR STEAM FITTER FURNACE INSTALLER) Pathologist [facility] eGFR 37(L) >=60 mL/min/1. [...] last reviewed 2021. Blood 08/03/2024 7:40 AM PIPE OR STEAM FITTER FURNACE INSTALLER 08/03/2024 7:49 AM PIPE OR STEAM FITTER FURNACE INSTALLER Hermelindo Butler MD LAB BLOOD ORDER ELANA Final Result [facility] [place] [address] * (ABNORMAL) Differential, auto (08/03/2024 7:40 AM PIPE OR STEAM FITTER FURNACE INSTALLER) Neutrophil abs 5.6 1.5 - 6.5 K/cumm Comment:Testing performed by : [facility], [address] [place] [phone] Lymphocyte abs 0.9 0.8 - 3.3 K/cumm [facility] Comment:Testing performed by : [facility], [address] [place] [phone] Monocyte abs 0.6 0.2 - 0.8 K/cumm [facility] Comment:Testing performed by : [facility], [address] [place] [phone] Eosinophil abs 0.8(H) 0.0 - 0.5 K/cumm C[facility]ER [facility] Comment:Testing performed by : [facility], [address] [place] [phone] Basophil abs 0.0 0.0 - 0.1 K/cumm C[facility] Comment:Testing performed by : [facility][Note 3] [facility], [address] [place], [place] [phone] Neutrophil pct 70.4 % [facility] Comment: Interpretive Data Percent cell count reference ranges are not reported, since discordance with absolute values may lead to misinterpretation of CBC data. Current Interpretive Data was last revised on 2017. Testing performed by: [facility], [address] [place] [phone] Lymphocyte pct 11.2 % [facility] Comment: Interpretive Data Percent cell count reference ranges are not reported, since discordance with absolute values may lead to misinterpretation of CBC data. Current Interpretive Data was last revised on 2017. Testing performed by: [facility][Note 3] Lab, [address] [place] [phone] Monocyte pct 7.7 % [facility] Comment: Interpretive Data Percent cell count reference ranges are not reported, since discordance with absolute values may lead to misinterpretation of CBC data. Current Interpretive Data was last revised on 2017. Testing performed by: [facility][Note 3] Lab, [address] [place] [phone] Eosinophil pct 10.1 % [facility] Comment: Interpretive Data Percent cell count reference ranges are not reported, since discordance with absolute values may lead to misinterpretation of CBC data. Current Interpretive Data was last revised on 2017. Testing performed by: [facility], [address] [place], [place] [phone] Basophil pct 0.6 % MT SUAREZ Comment: Interpretive Data Percent cell count reference ranges are not reported, since discordance with absolute values may lead to misinterpretation of CBC data. Current Interpretive Data was last revised on 2017. Testing performed by: [facility], [address] [place] [phone] Blood 08/03/2024 7:40 AM PIPE OR STEAM FITTER FURNACE INSTALLER 08/03/2024 7:47 AM PIPE OR STEAM FITTER FURNACE INSTALLER us Hermelindo Butler MD LAB BLOOD ORDER ELANA Final Result [facility] [place] [address] * (ABNORMAL) Immunoglobulin free light chains (08/03/2024 7:40 AM PIPE OR STEAM FITTER FURNACE INSTALLER) Pinhook/Lambda ratio [facility] See Comment 0.26 - 1.65 Comment: Unable to calculate exact result. Interpretive Data The Binding Site FreeLite assay procedure was used. Results from different manufacturers or methods may not be comparable. Serial testing should be performed using the same methods and instrumentation. Current Interpretive Data was last revised on 2023. Pinhook free light chain [facility] <0.06(L) 0.33 - [...] revised on 2023. Blood 08/03/2024 7:40 AM PIPE OR STEAM FITTER FURNACE INSTALLER 08/03/2024 8:24 AM PIPE OR STEAM FITTER FURNACE INSTALLER us Hermelindo Butler MD LAB BLOOD ORDER ELANA Final Result [facility] [place] [address] * (ABNORMAL) CBC with auto differential (08/03/2024 7:40 AM PIPE OR STEAM FITTER FURNACE INSTALLER) WBC 7.9 3.8 - 9.9 K/cumm Comment:Testing performed by : [facility], [address] [place] [address] Hgb 13.7 13.0 - 17.5 g/dL MT SUAREZ Comment:Testing performed by : [facility], [address] [place] [address] Hct 41.5 38.9 - 50.3 % CERFRANK SUAREZ Comment:Testing performed by : [facility], [address] [place] [address] Plt 163 150 - 400 K/cumm CERFRANK SUAREZ Comment:Testing performed by : [facility], [address] [place] [address] MPV 7.8 6.8 - 10.4 fL CERFRANK BJ Comment:Testing performed by : [facility], [address] [place] [address] RBC 4.50 4.30 - 5.80 M/cumm CERFRANK BJ Comment:Testing performed by : [facility], [address] [place] [address] MCV 92.1 81.3 - 96.4 fL CERFRANK BJ Comment:Testing performed by : [facility], [address] [place] [address] MCH 30.4 27.1 - 33.3 pg CERFRANK BJ Comment:Testing performed by : [facility], [address] [place] [address] MCHC 33.0 32.3 - 35.7 g/dL CERFRANK [facility] Comment:Testing performed by : [facility], [address] [place] [phone] RDW CV 16.6(H) 11.1 - 14.9 % [facility] Comment:Testing performed by : [facility], [address] [place] [phone] NRBC abs 0.00 0.00 - 0.01 K/cumm [facility] Comment:Testing performed by : [facility], [address] [place] [phone] Blood 08/03/2024 7:40 AM PIPE OR STEAM FITTER FURNACE INSTALLER 08/03/2024 7:47 AM PIPE OR STEAM FITTER FURNACE INSTALLER Hermelindo Butler MD LAB BLOOD ORDER ELANA Final Result [facility] [place] [address] * (ABNORMAL) Protein electrophoresis with reflex, serum with interpretation (08/03/2024 7:40 AM PIPE OR STEAM FITTER FURNACE INSTALLER) Protein, sr 5.7(L) 6.2 - 8.2 g/dL Albumin 3.8 3.2 - 5.0 g/dL [facility] Alpha-1 globulin 0.3 0.2 - 0.4 g/dL [facility] Alpha-2 globulin 0.6 0.5 - 1.0 g/dL [facility] Beta-1 globulin 0.4 0.3 - 0.6 g/dL [facility] Beta-2 globulin 0.3 0.2 - 0.6 g/dL [facility] Gamma globulin 0.2(L) 0.5 - 1.7 g/dL [facility] SPEP interp Please see comment [facility] Comment: No apparent monoclonal peak Decreased gamma globulins Electrophoretic pattern appears similar to previous sample 07/14/24 *See immunotyping for further information Reviewed and signed by Hermelindo Mcnulty MD 08/04/2024 Blood 08/03/2024 7:40 AM PIPE OR STEAM FITTER FURNACE INSTALLER 08/03/2024 8:24 AM PIPE OR STEAM FITTER FURNACE INSTALLER Hermelindo Butler MD LAB BLOOD ORDER ELANA Final Result Performing Organization Address [facility] Co de Phone Number [facility] [place] [employer] [place] [address] * Magnesium (08/03/2024 7:40 AM PIPE OR STEAM FITTER FURNACE INSTALLER) Pathologist [facility] Magnesium 2.2 1.4 - 2.5 mg/dL Blood 08/03/2024 7:40 AM PIPE OR STEAM FITTER FURNACE INSTALLER 08/03/2024 9:36 AM PIPE OR STEAM FITTER FURNACE INSTALLER Hermelindo Butler MD LAB BLOOD ORDER ELANA Final Result Performing Organization Address [facility] de Phone Number [facility] [place] [employer] [place] [address] * Lactate dehydrogenase (LD) (08/03/2024 7:40 AM PIPE OR STEAM FITTER FURNACE INSTALLER) [facility] Lactate dehydrogenase (LDH) 172 100 - 250 Units/L Blood 08/03/2024 7:40 AM PIPE OR STEAM FITTER FURNACE INSTALLER 08/03/2024 7:49 AM PIPE OR STEAM FITTER FURNACE INSTALLER Hermelindo Butler MD LAB BLOOD ORDER ELANA Final Result Performing Organization Address [facility] de Phone Number [facility] [place] [employer] [place] [address] * (ABNORMAL) Hemoglobin A1c (08/03/2024 7:40 AM PIPE OR STEAM FITTER FURNACE INSTALLER) Pathologist [facility] Hgb A1C 5.8(H) 4.0 - 5.6 % Estimated Average Glucose 120 mg/dL [facility] Comment: The ADA recommends reporting an estimated Average Glucose (eAG) with all Hemoglobin A1c results using the equation derived from a study of 507 normal and diabetic adults. Minority populations were underrepresented and children were not included. (Diabetes Care 2020; 43(S1): S66-S76). The eAG is not equivalent to a fasting glucose. Blood 08/03/2024 7:40 AM PIPE OR STEAM FITTER FURNACE INSTALLER 08/03/2024 7:49 AM PIPE OR STEAM FITTER FURNACE INSTALLER us Lyndsey Fagan NP LAB BLOOD ORDERABLES Angeles l Result Performing Organization Address [facility] Co de Phone Number [facility] [place] [address] * Gamma GT (08/03/2024 7:40 AM PIPE OR STEAM FITTER FURNACE INSTALLER) GGT 23 10 - 50 Units/L Blood 08/03/2024 7:40 AM PIPE OR STEAM FITTER FURNACE INSTALLER 08/03/2024 9:36 AM PIPE OR STEAM FITTER FURNACE INSTALLER us Hermelindo Butler MD LAB BLOOD ORDER ELANA Final Result Performing Organization Address [facility] de Phone Number [facility] [place] [address] * (ABNORMAL) IgA (08/03/2024 7:40 AM PIPE OR STEAM FITTER FURNACE INSTALLER) Immunoglobulin A <50(L) 70 - 400 mg/dL Blood 08/03/2024 7:40 AM PIPE OR STEAM FITTER FURNACE INSTALLER 08/03/2024 8:09 AM PIPE OR STEAM FITTER FURNACE INSTALLER Hermelindo Butler MD LAB BLOOD ORDER ELANA Final Result Performing Organization Address [facility] de Phone Number [facility] [place] [address] * (ABNORMAL) IgM (08/03/2024 7:40 AM PIPE OR STEAM FITTER FURNACE INSTALLER) Immunoglobulin M <25(L) 40 - 230 mg/dL Blood 08/03/2024 7:40 AM PIPE OR STEAM FITTER FURNACE INSTALLER 08/03/2024 8:09 AM PIPE OR STEAM FITTER FURNACE INSTALLER Hermelindo Butler MD LAB BLOOD ORDER ELANA Final Result Performing Organization Address City[facility]/ZIP Co de Phone Number [facility] [place] [address] * (ABNORMAL) IgG (08/03/2024 7:40 AM PIPE OR STEAM FITTER FURNACE INSTALLER) [facility] Immunoglobulin G <300(L) 700 - 1,600 mg/dL Blood 08/03/2024 7:40 AM PIPE OR STEAM FITTER FURNACE INSTALLER 08/03/2024 8:09 AM PIPE OR STEAM FITTER FURNACE INSTALLER Hermelindo Butler MD LAB BLOOD ORDER ELANA Final Result Performing Organization Address [facility] de Phone Number [facility] [place] [address] * (ABNORMAL) Comprehensive metabolic panel (08/03/2024 7:40 AM PIPE OR STEAM FITTER FURNACE INSTALLER) [facility] Sodium 141 135 - 145 mmol/L Potassium, pl 4.0 3.3 - 4.9 mmol/L [facility] Chloride 104 97 - 110 mmol/L [facility] CO2 30 22 - 32 mmol/L [facility] Anion gap 7 2 - 15 mmol/L [facility] BUN 47(H) 6 - 25 mg/dL [facility] Creatinine 1.92(H) 0.80 - 1.30 mg/dL [facility] Glucose 116 70 - 199 mg/dL [facility] Comment: Interpretive Data Fasting [...] 2022. Calcium 9.2 8.5 - 10.3 mg/dL [facility] Bilirubin, total 0.7 0.1 - 1.2 mg/dL [facility] Protein, pl 6.2(L) 6.5 - 8.5 g/dL [facility] Albumin 3.9 3.5 - 5.0 g/dL [facility] Alk phos 63 40 - 130 Units/L [facility] ALT 15 7 - 55 Units/L [facility] AST 17 10 - 50 Units/L [facility] Blood 08/03/2024 7:40 AM PIPE OR STEAM FITTER FURNACE INSTALLER 08/03/2024 7:49 AM PIPE OR STEAM FITTER FURNACE INSTALLER us Hermelindo Butler MD LAB BLOOD ORDER ELANA Final Result [facility] [place] [address] * (ABNORMAL) Urinalysis reflex to microscopic and culture Urine, clean voided (08/03/2024 7:30 AM PIPE OR STEAM FITTER FURNACE INSTALLER) Color, ur Straw Yellow Clarity, ur Clear Clear [facility] Specific gravity, ur 1.012 1.003 - 1.030 [facility] pH, urine 5.5 [facility] Comment: Interpretive Data U rine pH is affected by diet, medications, systemic acid-base disturbances, and renal tubular function. pH may affect urinary stone formation. For example, urine pH below 6.0 may help reduce the tendency for calcium phosphate stones and pH greater than 6.0 may reduce the tendency for uric acid stone formation. Source: [facility] [employer] Current Interpretive Data was last revised on 2017 Protein, ur ql Negative Negative [facility] Glucose, ur ql Negative Negative [facility] Ketones, ur Negative Negative [facility] Bilirubin, ur Negative Negative [facility] Blood, ur 2+(A) Negative [facility] Urobilinogen, ur <2.0 <2.0 mg/dL [facility] Nitrite, ur Negative Negative [facility] Leukocyte esterase, ur Negative [facility] UA reflex comment Reflex to microscopic UA will be performed. [facility] Urine, clean voided 08/03/2024 7:30 AM PIPE OR STEAM FITTER FURNACE INSTALLER 08/03/2024 7:30 AM PIPE OR STEAM FITTER FURNACE INSTALLER Lyndsey Fagan NP LAB MICROBIOLOGY - GENERA L ORDERABLES Final Result Performing Organization Address [facility]/ZIP [place] [address] * (ABNORMAL) Urinalysis, microscopic only (08/03/2024 7:30 AM PIPE OR STEAM FITTER FURNACE INSTALLER) WBC, ur 6-10(A) 0 - 5 /HPF RBC, ur 11-20(A) 0 - 2 /HPF [facility] Epithelial cells, squamous, ur 1-5 0 - 5 /HPF [facility] Bacteria, ur Trace(A) [facility] Culture Reflex Comment Reflex conditions for urine culture (WBC >10) not met. [facility] Urine, clean voided 08/03/2024 7:30 AM PIPE OR STEAM FITTER FURNACE INSTALLER 08/03/2024 7:30 AM PIPE OR STEAM FITTER FURNACE INSTALLER Lyndsey Fagan NP LAB URINE ORDERABLES [place] l Result Performing Organization Address [facility] [place] [address] * Urine culture Urine, clean voided (08/03/2024 7:30 AM PIPE OR STEAM FITTER FURNACE INSTALLER) Report Final Report: No growth Urine, clean voided 08/03/2024 7:30 AM PIPE OR STEAM FITTER FURNACE INSTALLER 08/03/2024 9:59 AM PIPE OR STEAM FITTER FURNACE INSTALLER Narrative [facility] - 08/04/2024 11:14 AM PIPE OR STEAM FITTER FURNACE INSTALLER Testing performed by [facility] ([phone]) Hermelindo Butler MD LAB MICROBIOLOG Y - GENERAL ORDERABLES Final Result Performing Organization Address [facility]/ZIP [place] [address] * Immunotyping, serum with interpretation (07/13/2024 7:40 AM PIPE OR STEAM FITTER FURNACE INSTALLER) Immunosubtraction Please see comment Comment: NO PARAPROTEIN DETECTED Reviewed and signed by Rufino Huff MD, PhD 07/14/2024 Blood 07/13/2024 7:40 AM PIPE OR STEAM FITTER FURNACE INSTALLER 07/13/2024 8:42 AM PIPE OR STEAM FITTER FURNACE INSTALLER Hermelindo Butler MD LAB BLOOD ORDER ELANA Final Result Performing Organization Address [facility]/ZIP Co de Phone Number [facility] [place] [address] * (ABNORMAL) eGFR (07/13/2024 7:40 AM PIPE OR STEAM FITTER FURNACE INSTALLER) Pathologist [facility] eGFR 57(L) >=60 mL/min/1. [...] last reviewed 2021. Blood 07/13/2024 7:40 AM PIPE OR STEAM FITTER FURNACE INSTALLER 07/13/2024 7:47 AM PIPE OR STEAM FITTER FURNACE INSTALLER Hermelindo Butler MD LAB BLOOD ORDER ELANA Final Result [facility] [place] [address] * Differential, auto (07/13/2024 7:40 AM PIPE OR STEAM FITTER FURNACE INSTALLER) Neutrophil abs 5.4 1.5 - 6.5 K/cumm Comment:Testing performed by : [facility], [address] [place] [phone] Lymphocyte abs 0.9 0.8 - 3.3 K/cumm [facility] Comment:Testing performed by : [facility], [address] [place] [address] Monocyte abs 0.5 0.2 - 0.8 K/cumm [facility] Comment:Testing performed by : [facility], [address] [place] [address] Eosinophil abs 0.5 0.0 - 0.5 K/cumm [facility] Comment:Testing performed by : [facility][Note 3] Lab, [address] [place] [address] Basophil abs 0.0 0.0 - 0.1 K/cumm [facility] Comment:Testing performed by : [facility][Note 3] Lab, [address] [place] [phone] Neutrophil pct 73.6 % [facility] Comment: Interpretive Data Percent cell count reference ranges are not reported, since discordance with absolute values may lead to misinterpretation of CBC data. Current Interpretive Data was last revised on 2017. Testing performed by: [facility][Note 3] Lab, [address] [place] [phone] Lymphocyte pct 12.0 % [facility] Comment: Interpretive Data Percent cell count reference ranges are not reported, since discordance with absolute values may lead to misinterpretation of CBC data. Current Interpretive Data was last revised on 2017. Testing performed by: [facility][Note 3] Lab, [address] [place], [place] [phone] Monocyte pct 7.4 % [facility] Comment: Interpretive Data Percent cell count reference ranges are not reported, since discordance with absolute values may lead to misinterpretation of CBC data. Current Interpretive Data was last revised on 2017. Testing performed by: [facility], [facility] [place] [address] Eosinophil pct 6.5 % [facility] Comment: Interpretive Data Percent cell count reference ranges are not reported, since discordance with absolute values may lead to misinterpretation of CBC data. Current Interpretive Data was last revised on 2017. Testing performed by: [facility], [address] [place] [phone] Basophil pct 0.5 % [facility] Comment: Interpretive Data Percent cell count reference ranges are not reported, since discordance with absolute values may lead to misinterpretation of CBC data. Current Interpretive Data was last revised on 2017. Testing performed by: [facility], [address] [place] [phone] Blood 07/13/2024 7:40 AM PIPE OR STEAM FITTER FURNACE INSTALLER 07/13/2024 7:46 AM PIPE OR STEAM FITTER FURNACE INSTALLER Hermelindo Butler MD LAB BLOOD ORDER ELANA Final Result [facility] [place] [address] * (ABNORMAL) Immunoglobulin free light chains (07/13/2024 7:40 AM PIPE OR STEAM FITTER FURNACE INSTALLER) Pinhook/Lambda ratio [facility] See Comment 0.26 - 1.65 Comment: Unable to calculate exact result. Interpretive Data The Binding Site FreeLite assay procedure was used. Results from different manufacturers or methods may not be comparable. Serial testing should be performed using the same methods and instrumentation. Current Interpretive Data was last revised on 2023. Pinhook free light chain [facility] <0.06(L) 0.33 - 1.94 mg/dL [facility] Comment: Interpretive Data The Binding Site FreeLite assay procedure was used. Results from different manufacturers or methods may not be comparable. Serial testing should be performed using the same methods and instrumentation. Current Interpretive Data was last revised on 2023. Lambda free light chain [facility] <0.13(L) 0.57 - 2.63 mg/dL [facility] Comment: Interpretive Data The Binding Site FreeLite assay procedure was used. Results from different manufacturers or methods may not be comparable. Serial testing should be performed using the same methods and instrumentation. Current Interpretive Data was last revised on 2023. Blood 07/13/2024 7:40 AM PIPE OR STEAM FITTER FURNACE INSTALLER 07/13/2024 8:42 AM PIPE OR STEAM FITTER FURNACE INSTALLER Hermelindo Butler MD LAB BLOOD ORDER ELANA Final Result [facility] [place] [address] * (ABNORMAL) CBC with auto differential (07/13/2024 7:40 AM PIPE OR STEAM FITTER FURNACE INSTALLER) WBC 7.4 3.8 - 9.9 K/cumm Comment:Testing performed by : [facility], [address] [place] [address] Hgb 14.4 13.0 - 17.5 g/dL [facility] Comment:Testing performed by : [facility], [address] [place] [address] Hct 44.1 38.9 - 50.3 % [facility] Comment:Testing performed by : [facility], [address] [place] [address] Plt 174 150 - 400 K/cumm [facility] Comment:Testing performed by : [facility], [address] [place] [address] MPV 7.5 6.8 - 10.4 fL [facility] Comment:Testing performed by : [facility], [address] [place] [address] RBC 4.75 4.30 - 5.80 M/cumm [facility] Comment:Testing performed by : [facility], [address] [place] [address] MCV 92.8 81.3 - 96.4 fL [facility] Comment:Testing performed by : [facility], [address] [place], [place] [phone] MCH 30.2 27.1 - 33.3 pg [facility] Comment:Testing performed by : [facility], [address] [place], [place] [phone] MCHC 32.6 32.3 - 35.7 g/dL [facility] Comment:Testing performed by : [facility], [address] [place], [place] [phone] RDW CV 16.2(H) 11.1 - 14.9 % [facility] Comment:Testing performed by : [facility], [address] [place], [place] [phone] NRBC abs 0.00 0.00 - 0.01 K/cumm [facility] Comment:Testing performed by : [facility], [address] [place], [place] [phone] Blood 07/13/2024 7:40 AM PIPE OR STEAM FITTER FURNACE INSTALLER 07/13/2024 7:46 AM PIPE OR STEAM FITTER FURNACE INSTALLER Hermelindo Butler MD LAB BLOOD ORDER ELANA Final Result [facility] [place] [address] * (ABNORMAL) Protein electrophoresis with reflex, serum with interpretation (07/13/2024 7:40 AM PIPE OR STEAM FITTER FURNACE INSTALLER) Protein, sr 5.7(L) 6.2 - 8.2 g/dL Albumin 3.7 3.2 - 5.0 g/dL [facility] Alpha-1 globulin 0.3 0.2 - 0.4 g/dL [facility] Alpha-2 globulin 0.6 0.5 - 1.0 g/dL [facility] Beta-1 globulin 0.4 0.3 - 0.6 g/dL [facility] Beta-2 globulin 0.3 0.2 - 0.6 g/dL [facility] Gamma globulin 0.3(L) 0.5 - 1.7 g/dL [facility] SPEP interp Please see comment [facility] Comment: No apparent monoclonal peak Decreased gamma globulins Electrophoretic pattern appears similar to previous sample 06/23/24 See immunotyping for further information Reviewed and signed by Rufino Huff MD, PhD 07/14/2024 Blood 07/13/2024 7:40 AM PIPE OR STEAM FITTER FURNACE INSTALLER 07/13/2024 8:42 AM PIPE OR STEAM FITTER FURNACE INSTALLER Hermelindo Butler MD LAB BLOOD ORDER ELANA Final Result Performing Organization Address [facility] Co de Phone Number [facility] [place] [address] * Magnesium (07/13/2024 7:40 AM PIPE OR STEAM FITTER FURNACE INSTALLER) Pathologist [facility] Magnesium 2.2 1.4 - 2.5 mg/dL Blood 07/13/2024 7:40 AM PIPE OR STEAM FITTER FURNACE INSTALLER 07/13/2024 7:47 AM PIPE OR STEAM FITTER FURNACE INSTALLER Hermelindo Butler MD LAB BLOOD ORDER ELANA Final Result Performing Organization Address [facility] de Phone Number [facility] [place] [employer] [place] [address] * Lactate dehydrogenase (LD) (07/13/2024 7:40 AM PIPE OR STEAM FITTER FURNACE INSTALLER) Pathologist [facility] Lactate dehydrogenase (LDH) 152 100 - 250 Units/L Blood 07/13/2024 7:40 AM PIPE OR STEAM FITTER FURNACE INSTALLER 07/13/2024 7:47 AM PIPE OR STEAM FITTER FURNACE INSTALLER Hermelindo Butler MD LAB BLOOD ORDER ELANA Final Result Performing Organization Address City[facility] [place] [address] * Gamma GT (07/13/2024 7:40 AM PIPE OR STEAM FITTER FURNACE INSTALLER) GGT 27 10 - 50 Units/L Blood 07/13/2024 7:40 AM PIPE OR STEAM FITTER FURNACE INSTALLER 07/13/2024 7:47 AM PIPE OR STEAM FITTER FURNACE INSTALLER us Hermelindo Butler MD LAB BLOOD ORDER ELANA Final Result Performing Organization Address [facility] de Phone Number [facility] [place] [address] * (ABNORMAL) IgA (07/13/2024 7:40 AM PIPE OR STEAM FITTER FURNACE INSTALLER) Immunoglobulin A <50(L) 70 - 400 mg/dL Blood 07/13/2024 7:40 AM PIPE OR STEAM FITTER FURNACE INSTALLER 07/13/2024 7:59 AM PIPE OR STEAM FITTER FURNACE INSTALLER us Hermelindo Butler MD LAB BLOOD ORDER ELANA Final Result Performing Organization Address [facility] de Phone Number [facility] [place] [address] * (ABNORMAL) IgM (07/13/2024 7:40 AM PIPE OR STEAM FITTER FURNACE INSTALLER) Immunoglobulin M <25(L) 40 - 230 mg/dL Blood 07/13/2024 7:40 AM PIPE OR STEAM FITTER FURNACE INSTALLER 07/13/2024 7:59 AM PIPE OR STEAM FITTER FURNACE INSTALLER us Hermelindo Butler MD LAB BLOOD ORDER ELANA Final Result Performing Organization Address [facility] de Phone Number [facility] [place] [employer] [place] [address] * (ABNORMAL) IgG (07/13/2024 7:40 AM PIPE OR STEAM FITTER FURNACE INSTALLER) Immunoglobulin G <300(L) 700 - 1,600 mg/dL Blood 07/13/2024 7:40 AM PIPE OR STEAM FITTER FURNACE INSTALLER 07/13/2024 7:59 AM PIPE OR STEAM FITTER FURNACE INSTALLER us Hermelindo Butler MD LAB BLOOD ORDER ELANA Final Result [facility] [place] [address] * (ABNORMAL) Comprehensive metabolic panel (07/13/2024 7:40 AM PIPE OR STEAM FITTER FURNACE INSTALLER) Sodium 144 135 - 145 mmol/L Potassium, pl 4.2 3.3 - 4.9 mmol/L [facility] Chloride 107 97 - 110 mmol/L [facility] CO2 33(H) 22 - 32 mmol/L [facility] Anion gap 4 2 - 15 mmol/L [facility] BUN 29(H) 6 - 25 mg/dL [facility] Creatinine 1.34(H) 0.80 - 1.30 mg/dL [facility] Glucose 125 70 - 199 mg/dL [facility] Comment: Interpretive Data Fasting [...] 2022. Calcium 9.4 8.5 - 10.3 mg/dL [facility] Bilirubin, total 0.7 0.1 - 1.2 mg/dL [facility] Protein, pl 6.2(L) 6.5 - 8.5 g/dL [facility] Albumin 4.1 3.5 - 5.0 g/dL [facility] Alk phos 65 40 - 130 Units/L [facility] ALT 18 7 - 55 Units/L [facility] AST 16 10 - 50 Units/L [facility] Blood 07/13/2024 7:40 AM PIPE OR STEAM FITTER FURNACE INSTALLER 07/13/2024 7:47 AM PIPE OR STEAM FITTER FURNACE INSTALLER Hermelindo Butler MD LAB BLOOD ORDER ELANA Final Result Performing Organization Address [facility] Co de Phone Number [facility] [place] [employer] [place] [address] * aPTT (07/13/2024 7:24 AM PIPE OR STEAM FITTER FURNACE INSTALLER) aPTT 28 28 - 38 sec Comment: Interpretive Data Heparin therapeutic range: 66.0 - 100.0 seconds. Range based on correlation with therapeutic heparin activity range of 0.3 - 0.7 Units/mL. Current interpretive data was last revised on 2023. Blood 07/13/2024 7:24 AM PIPE OR STEAM FITTER FURNACE INSTALLER 07/13/2024 7:59 AM PIPE OR STEAM FITTER FURNACE INSTALLER Hermelindo Butler MD LAB BLOOD ORDER ELANA Final Result Performing Organization Address [facility] [place] [address] * Protime-INR (07/13/2024 7:24 AM PIPE OR STEAM FITTER FURNACE INSTALLER) PT 11.5 9.7 - 13.0 sec INR 1.06 0.90 - 1.20 [facility] Comment: Interpretive data Oral anticoagulant therapeutic ranges: Venous thromboembolism prophylaxis or treatment: 2.0-3.0 CARDIOLOGY Standard range: 2.0-3.0 High-intensity range: 2.5-3.5 Refer to indication-specific guidelines for appropriate target ranges for prosthetic heart valve replacement. Current interpretive data was last revised on 2019. Blood 07/13/2024 7:24 AM PIPE OR STEAM FITTER FURNACE INSTALLER 07/13/2024 7:59 AM PIPE OR STEAM FITTER FURNACE INSTALLER Hermelindo Butler MD LAB BLOOD ORDER ELANA Final Result Performing Organization Address [facility] [place] [address] * Immunotyping, serum (06/22/2024 7:20 AM PIPE OR STEAM FITTER FURNACE INSTALLER) Immunosubtraction Please see comment Comment: NO PARAPROTEIN DETECTED Reviewed and signed by Fernando Nunez MD, PhD 06/23/2024 Blood 06/22/2024 7:20 AM PIPE OR STEAM FITTER FURNACE INSTALLER 06/22/2024 10:03 AM PIPE OR STEAM FITTER FURNACE INSTALLER Hermelindo Butler MD LAB BLOOD ORDER ELANA Final Result [facility] [place] [address] * eGFR (06/22/2024 7:20 AM PIPE OR STEAM FITTER FURNACE INSTALLER) eGFR 66 >=60 mL/min/1. 73 m2 Comment: [...] last reviewed 2021. Blood 06/22/2024 7:20 AM PIPE OR STEAM FITTER FURNACE INSTALLER 06/22/2024 8:12 AM PIPE OR STEAM FITTER FURNACE INSTALLER Hermelindo Butler MD LAB BLOOD ORDER ELANA Final Result [facility] [place] [address] * Differential, auto (06/22/2024 7:20 AM PIPE OR STEAM FITTER FURNACE INSTALLER) Neutrophil abs 5.4 1.5 - 6.5 K/cumm Comment:Testing performed by : [facility], [address] [place] [phone] Lymphocyte abs 0.9 0.8 - 3.3 K/cumm [facility] Comment:Testing performed by : [facility], [address] [place] [phone] Monocyte abs 0.5 0.2 - 0.8 K/cumm [facility] Comment:Testing performed by : [facility], [address] [place] [phone] Eosinophil abs 0.2 0.0 - 0.5 K/cumm [facility] Comment:Testing performed by : [facility][Note 3] Lab, [address] [place] [phone] Basophil abs 0.0 0.0 - 0.1 K/cumm [facility] Comment:Testing performed by : [facility], [address] [place] [phone] Neutrophil pct 75.7 % [facility] Comment: Interpretive Data Percent cell count reference ranges are not reported, since discordance with absolute values may lead to misinterpretation of CBC data. Current Interpretive Data was last revised on 2017. Testing performed by: [facility][Note 3] Lab, [address] [place] [phone] Lymphocyte pct 13.1 % [facility] Comment: Interpretive Data Percent cell count reference ranges are not reported, since discordance with absolute values may lead to misinterpretation of CBC data. Current Interpretive Data was last revised on 2017. Testing performed by: [facility], [address] [place] [phone] Monocyte pct 7.1 % [facility] Comment: Interpretive Data Percent cell count reference ranges are not reported, since discordance with absolute values may lead to misinterpretation of CBC data. Current Interpretive Data was last revised on 2017. Testing performed by: [facility], [address] [place] [phone] Eosinophil pct 3.5 % [facility] Comment: Interpretive Data Percent cell count reference ranges are not reported, since discordance with absolute values may lead to misinterpretation of CBC data. Current Interpretive Data was last revised on 2017. Testing performed by: [facility], [address] [place] [phone] Basophil pct 0.6 % [facility] Comment: Interpretive Data Percent cell count reference ranges are not reported, since discordance with absolute values may lead to misinterpretation of CBC data. Current Interpretive Data was last revised on 2017. Testing performed by: [facility], [address] [place] [phone] Blood 06/22/2024 7:20 AM PIPE OR STEAM FITTER FURNACE INSTALLER 06/22/2024 8:08 AM PIPE OR STEAM FITTER FURNACE INSTALLER Hermelindo Butler MD LAB BLOOD ORDER ELANA Final Result [facility] [facility] [place] [address] * (ABNORMAL) Immunoglobulin free light chains (06/22/2024 7:20 AM PIPE OR STEAM FITTER FURNACE INSTALLER) Pinhook/Lambda ratio BJ See Comment 0.26 - 1.65 Comment: Unable to calculate exact result. Interpretive Data The Binding Site FreeLite assay procedure was used. Results from different manufacturers or methods may not be comparable. Serial testing should be performed using the same methods and instrumentation. Current Interpretive Data was last revised on 2023. Pinhook free light chain BJH <0.06(L) 0.33 - [...] revised on 2023. Blood 06/22/2024 7:20 AM PIPE OR STEAM FITTER FURNACE INSTALLER 06/22/2024 9:53 AM PIPE OR STEAM FITTER FURNACE INSTALLER Hermelindo Butler MD LAB BLOOD ORDER ELANA Final Result [facility] [place] [address] * (ABNORMAL) CBC with auto differential (06/22/2024 7:20 AM PIPE OR STEAM FITTER FURNACE INSTALLER) WBC 7.1 3.8 - 9.9 K/cumm Comment:Testing performed by : [facility], [address] [place] [address] Hgb 14.6 13.0 - 17.5 g/dL [facility] Comment:Testing performed by : [facility], [address] [place] [address] Hct 45.6 38.9 - 50.3 % [facility] Comment:Testing performed by : [facility], [address] [place] [address] Plt 196 150 - 400 K/cumm [facility] Comment:Testing performed by : [facility], [address] [place] [address] MPV 8.3 6.8 - 10.4 fL CERNER BJ Comment:Testing performed by : [facility], [address] [place] [address] RBC 4.88 4.30 - 5.80 M/cumm [facility] BJ Comment:Testing performed by : [facility], [address] [place] [address] MCV 93.5 81.3 - 96.4 fL CERNER BJ Comment:Testing performed by : [facility], [address] [place], [place] [phone] MCH 29.9 27.1 - 33.3 pg [facility] Comment:Testing performed by : [facility], [address] [place], [place] [phone] MCHC 31.9(L) 32.3 - 35.7 g/dL [facility] Comment:Testing performed by : [facility], [address] [place], [place] [phone] RDW CV 16.0(H) 11.1 - 14.9 % [facility] Comment:Testing performed by : [facility], [address] [place], [place] [phone] NRBC abs 0.20(H) 0.00 - 0.01 K/cumm [facility] Comment:Testing performed by : [facility], [address] [place], [place] [phone] Blood 06/22/2024 7:20 AM PIPE OR STEAM FITTER FURNACE INSTALLER 06/22/2024 8:08 AM PIPE OR STEAM FITTER FURNACE INSTALLER Hermelindo Butler MD LAB BLOOD ORDER ELANA Final Result Performing Organization Address [facility] Co de Phone Number [facility] [place] [address] * aPTT (06/22/2024 7:20 AM PIPE OR STEAM FITTER FURNACE INSTALLER) aPTT 29 28 - 38 sec Comment: Interpretive Data Heparin therapeutic range: 66.0 - 100.0 seconds. Range based on correlation with therapeutic heparin activity range of 0.3 - 0.7 Units/mL. Current interpretive data was last revised on 2023. Blood 06/22/2024 7:20 AM PIPE OR STEAM FITTER FURNACE INSTALLER 06/22/2024 9:50 AM PIPE OR STEAM FITTER FURNACE INSTALLER Hermelindo Butler MD LAB BLOOD ORDER ELANA Final Result Performing Organization Address [facility] Co de Phone Number [facility] [place] [address] * Protime-INR (06/22/2024 7:20 AM PIPE OR STEAM FITTER FURNACE INSTALLER) PT 10.9 9.7 - 13.0 sec INR 1.01 0.90 - 1.20 [facility] Comment: Interpretive data Oral anticoagulant therapeutic ranges: Venous thromboembolism prophylaxis or treatment: 2.0-3.0 CARDIOLOGY Standard range: 2.0-3.0 High-intensity range: 2.5-3.5 Refer to indication-specific guidelines for appropriate target ranges for prosthetic heart valve replacement. Current interpretive data was last revised on 2019. Blood 06/22/2024 7:20 AM PIPE OR STEAM FITTER FURNACE INSTALLER 06/22/2024 9:50 AM PIPE OR STEAM FITTER FURNACE INSTALLER us Hermelindo Butler MD LAB BLOOD ORDER ELANA Final Result [facility] [place] [address] * (ABNORMAL) Protein electrophoresis with reflex, serum (06/22/2024 7:20 AM PIPE OR STEAM FITTER FURNACE INSTALLER) Protein, sr 5.9(L) 6.2 - 8.2 g/dL Albumin 3.7 3.2 - 5.0 g/dL [facility] Alpha-1 globulin 0.3 0.2 - 0.4 g/dL [facility] Alpha-2 globulin 0.7 0.5 - 1.0 g/dL [facility] Beta-1 globulin 0.5 0.3 - 0.6 g/dL [facility] Beta-2 globulin 0.3 0.2 - 0.6 g/dL [facility] Gamma globulin 0.4(L) 0.5 - 1.7 g/dL [facility] SPEP interp Please see comment [facility] Comment: No apparent monoclonal peak Decreased gamma globulins Electrophoretic pattern appears similar to previous sample 05-19-24 See immunotyping for further information Reviewed and signed by Fernando Nunez MD, PhD 06/23/2024 Immunotyping See Immunotyping Results [facility] Blood 06/22/2024 7:20 AM PIPE OR STEAM FITTER FURNACE INSTALLER 06/22/2024 9:55 AM PIPE OR STEAM FITTER FURNACE INSTALLER us Hermelindo Butler MD LAB BLOOD ORDER ELANA Final Result Performing Organization Address [facility] de Phone Number [facility] [place] [address] * Magnesium (06/22/2024 7:20 AM PIPE OR STEAM FITTER FURNACE INSTALLER) Magnesium 2.2 1.4 - 2.5 mg/dL Blood 06/22/2024 7:20 AM PIPE OR STEAM FITTER FURNACE INSTALLER 06/22/2024 8:12 AM PIPE OR STEAM FITTER FURNACE INSTALLER us Hermelindo Butler MD LAB BLOOD ORDER ELANA Final Result Performing Organization Address [facility] de Phone Number [facility] [place] [employer] [place] [address] * Lactate dehydrogenase (LD) (06/22/2024 7:20 AM PIPE OR STEAM FITTER FURNACE INSTALLER) Lactate dehydrogenase (LDH) 157 100 - 250 Units/L Blood 06/22/2024 7:20 AM PIPE OR STEAM FITTER FURNACE INSTALLER 06/22/2024 8:12 AM PIPE OR STEAM FITTER FURNACE INSTALLER us Hermelindo Butler MD LAB BLOOD ORDER ELANA Final Result Performing Organization Address [facility] de Phone Number [facility] [place] [employer] [place] [address] * Gamma GT (06/22/2024 7:20 AM PIPE OR STEAM FITTER FURNACE INSTALLER) GGT 30 10 - 50 Units/L Blood 06/22/2024 7:20 AM PIPE OR STEAM FITTER FURNACE INSTALLER 06/22/2024 8:12 AM PIPE OR STEAM FITTER FURNACE INSTALLER us Hermelindo Butler MD LAB BLOOD ORDER ELANA Final Result [facility] [place] [address] * (ABNORMAL) IgA (06/22/2024 7:20 AM PIPE OR STEAM FITTER FURNACE INSTALLER) Immunoglobulin A <50(L) 70 - 400 mg/dL Blood 06/22/2024 7:20 AM PIPE OR STEAM FITTER FURNACE INSTALLER 06/22/2024 9:49 AM PIPE OR STEAM FITTER FURNACE INSTALLER Hermelindo Butler MD LAB BLOOD ORDER ELANA Final Result Performing Organization Address [facility] Co [place] [address] * (ABNORMAL) IgM (06/22/2024 7:20 AM PIPE OR STEAM FITTER FURNACE INSTALLER) Immunoglobulin M <25(L) 40 - 230 mg/dL Blood 06/22/2024 7:20 AM PIPE OR STEAM FITTER FURNACE INSTALLER 06/22/2024 9:49 AM PIPE OR STEAM FITTER FURNACE INSTALLER us Hermelindo Butler MD LAB BLOOD ORDER ELANA Final Result Performing Organization Address [facility] Co de Phone Number [facility] [place] [employer] [place] [address] * (ABNORMAL) IgG (06/22/2024 7:20 AM PIPE OR STEAM FITTER FURNACE INSTALLER) Immunoglobulin G 423(L) 700 - 1,600 mg/dL Blood 06/22/2024 7:20 AM PIPE OR STEAM FITTER FURNACE INSTALLER 06/22/2024 9:49 AM PIPE OR STEAM FITTER FURNACE INSTALLER us Hermelindo Butler MD LAB BLOOD ORDER ELANA Final Result [facility] [place] [address] * (ABNORMAL) Comprehensive metabolic panel (06/22/2024 7:20 AM PIPE OR STEAM FITTER FURNACE INSTALLER) Sodium 141 135 - 145 mmol/L Potassium, pl 4.1 3.3 - 4.9 mmol/L [facility] Chloride 104 97 - 110 mmol/L [facility] CO2 31 22 - 32 mmol/L [facility] Anion gap 6 2 - 15 mmol/L [facility] BUN 24 6 - 25 mg/dL [facility] Creatinine 1.18 0.80 - 1.30 mg/dL [facility] Glucose 111 70 - 199 mg/dL [facility] Comment: Interpretive Data Fasting [...] 2022. Calcium 9.5 8.5 - 10.3 mg/dL [facility] Bilirubin, total 0.7 0.1 - 1.2 mg/dL [facility] Protein, pl 6.3(L) 6.5 - 8.5 g/dL [facility] Albumin 3.8 3.5 - 5.0 g/dL [facility] Alk phos 63 40 - 130 Units/L [facility] ALT 18 7 - 55 Units/L [facility] AST 20 10 - 50 Units/L [facility] Blood 06/22/2024 7:20 AM PIPE OR STEAM FITTER FURNACE INSTALLER 06/22/2024 8:12 AM PIPE OR STEAM FITTER FURNACE INSTALLER us Hermelindo Butler MD LAB BLOOD ORDER ELANA Final Result [facility] [place] [address] * Hepatitis C antibody (10/16/2021 9:50 AM CDT) Hep C Ab Nonreactive Nonreactive [facility] Comment:Antibodies to HCV no t detected. Does NOT exclude the possibility of recent exposure to HCV. Blood 10/16/2021 9:50 AM CDT 10/16/2021 11:22 AM CDT Hermelindo dupree MD LAB MICROBIOLOGY - GENERAL ORDERABLES Edited Result - Final [facility] [place] [address] from Last 3 Months or Most Recently Relevant to Health Maintenance Insurance MEDICARE [employer] SENIOR SUPPLEMENT MEDICARE AET[employer] SENIOR SUPPLEMENT MEDICARE AET[employer] SENIOR SUPPLEMENT Advance Directives For more information, please contact: [phone] Documents on File Type Date Recorded Patient Tire Adjuster Expl anation ADVANCE DIRECTIVE 11/29/2017 11:05 AM FOX R OF FORMS ANALYSIS MANAGER ADVANCE DIRECTIVE 11/12/2017 3:59 PM POWER OF FORMS ANALYSIS MANAGER * Full Code (Latest Code Status on [...] 9:21 AM 05/30/2021 1:44 PM Care Teams Prosthetic Lab Technician Relationship Specialty Start Date End Date Jatin Gamble MD [address] [place] [address] PCP - General 10/07/16 Hermelindo Butler MD [address] [place] [address] [facility] 12/02/17 Roberto Rojo MD [address] [place] [address] [facility] Oncology 12/02/17 Jatin Gamble MD [address] [place] [address] Referring Physician Internal Medicine 12/02/17 Lyndsey Fagan NP [address] [place] [address] Nurse Practitioner Medical Oncology 08/03/20 Erlin Servin MD [address] [place] [address] Consulting Physician Otolaryngology 10/04/22 [place] [address] [place] [address] Consulting Physician Urology 05/28/23
--- OUTSIDE RECORDS SUMMARY | 2024-09-10 19:55 | XMS_ITS | Encounter Summary ---
Author Organization [facility] Healthcare Address [address] [place] [address] Care Team Providers Care Film Color Tester Name Role Phone Jatin Gamble MD Primary Care Provider Hermelindo Butler MD Unavailable Roberto Rojo MD Unavailable [phone] Jatin Gamble MD Unavailable Garry Dukes MD Unavailable [phone] Lyndsey Fagan NP Unavailable Erlin Servin MD Unavailable [phone] Jluian Valdez MD Unavailable Encounter Details Date Type Department Care Team (Late st Contact Info) Description 04/29/2022 Community Orders [facility] EpicCare Link Jatin Gamble MD [address] [place] [address] Elevated prostate specific antigen (PSA) (Primary Dx) Social History Tobacco Use Types Packs/Day Years Used Date Smoking Tobacco: Never Smokeless Tobacco: Never Alcohol Use Standard Drinks/Week Comments No 0 (1 standard drink = 0.6 oz pur e alcohol) Sex and Gender Information Value Date Recorded Sex Assigned at Not on file Legal Sex 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 MINERAL ENGINEER Gender Identity Not on file Sexual Orientation [...] documented as of this encounter Care Teams Film Color Tester Relationship Specialty Start Date End Date Jatin Gamble MD [address] [place] [address] PCP - General 10/07/16 Hermelindo Butler MD [address] [place] [address] [facility] 12/02/17 Roberto Rojo MD [address] [place] [address] [facility] 12/02/17 Jatin Gamble MD [address] [place] [address] Referring Physician Internal Medicine 12/02/17 Garry Dukes MD [address] [place] [address] Referring Physician Urology 12/02/17 05/27/23 Lyndsey Fagan NP [address] [place] [address] Nurse Practitioner Medical Oncology 08/03/20 Erlin Servin MD [address] [place] [address] Consulting Physician Otolaryngology 10/04/22 [place] [address] [place] [address] Consulting Physician Urology 05/28/23 documented as of this encounter
[2024-09-10 20:00] VITALS: BP 122/60; PULSE 92; RESP 16; TEMP 37.1; O2SAT 98
--- NOTE | 2024-09-10 20:15 | ECG_ITS ---
Test Date: 2024-09-10 21:31:17 Measurements Intervals [place] Rate: 88 P: 64 IN: 160 QRS: -4 QRSD: 111 T: 39 QT: 353 QTc: 428 Interpretive Statements SINUS RHYTHM INCOMPLETE RIGHT BUNDLE BRANCH BLOCK BORDERLINE ECG Compared to ECG 09/09/2024 17:52:34 HEART RATE HAS DECREASED Electronically Signed On 09-11-2024 07:28:06 CDT by Porfirio Mendoza D.O.
--- NOTE | 2024-09-10 20:26 | ED_ITS ---
HPI - Male Genitourinary General Chief complaint: Recheck/Abnormal Lab/Rx Stated complaint: Irregular Blood Cultures Time Seen by Provider: 09/10/24 19:54 Source: patient and family Mode of arrival: ambulatory Limitations: no limitations History of Present Illness HPI Narrative: patient is a 73-year-old male with known prostate enlargement and urinary issues over the past month. He has been having a Arriaza versus a self catheter. He was seen last night in the emergency room here and he left AMA. Patient was called back to the emergency room this evening due to 2 positive blood cultures with Gram-positive cocci. Patient is having all oligouria. Patient has been having fever. Patient has been having altered mental status. No pain. his creatinine has increased slowly over the past month per the . Patient has multiple myeloma. He has urologist with [facility]. Complaint: other ( Low urinary output and poor oral intake of water) Onset (ago): week(s) ( One) Duration: constant Location: abdomen ( no pain) Radiation: abdomen ( no pain) Severity: similar to previous episodes ( no pain) Severity scale (1-10): 1 ( 0) Quality: other ( no pain) Relieving factors: none Exacerbating factors: none Context: recent surgery ( patient gets frequent cystoscopies by urology) and indwelling catheter ( patient had a Arriaza catheter in from the ER last night but he removed today) Associated symptoms: Reports fever and other ( low urinary output) Related Data Home Medications ?Medication ?Instructions ?Recorded ?Confirmed ?Last Taken ?Type famotidine 20 mg PO BID 07/30/21 08/06/23 Unknown History hydrocodone-acetaminophen 10 - 325 mg PO Q6-8H PRN Pain 07/30/21 08/06/23 Unknown History losartan 25 mg PO DAILY 07/30/21 08/07/23 Unknown History nebivolol 10 mg tablet (Bystolic) 5 mg PO DAILY 07/30/21 08/06/23 Unknown History potassium chloride 10 mEq 10 meq PO DAILY 07/30/21 08/06/23 Unknown History tablet,extended release allopurinol 300 mg tablet 300 mg PO DAILY 07/05/23 08/06/23 Unknown History acyclovir 400 mg tablet 400 mg PO BID 08/06/23 08/06/23 Unknown History budesonide 0.5 mg/2 mL suspension 0.5 mg inhalation DAILY 08/06/23 08/06/23 Unknown History for nebulization ferrous sulfate 325 mg (65 mg 325 mg PO BID 08/06/23 08/06/23 Unknown History iron) tablet triamcinolone acetonide 0.5 % 1 applic topical BID 08/06/23 08/06/23 Unknown History topical cream triamterene 37.5 1 tablet PO DAILY 08/06/23 08/06/23 Unknown History mg-hydrochlorothiazide 25 mg tablet Allergies Allergy/AdvReac Type Severity Reaction Status Date / Time No Known Allergies Allergy Verified 08/06/23 16:16 Review of Systems 2 Review of Systems: All systems reviewed & are unremarkable except as noted in HPI and below Constitutional: Constitutional: Reports no additional constitutional complaints Eyes: Eyes: Reports no additional eye complaints ENT: Reports system reviewed and no additional complaints, except as documented Cardiovascular: Cardiovascular: Reports no additional cardiovascular complaints Respiratory: Respiratory: Reports no additional respiratory complaints Gastrointestinal: Gastrointestinal: Reports no additional gastrointestinal complaints Genitourinary: Genitourinary: Reports no additional male genitourinary complaints Musculoskeletal: Musculoskeletal: Reports no additional musculoskeletal complaints Integumentary/Breasts: Skin/Breast: Reports system reviewed and no additional complaints, except as docu Neurologic: Reports system reviewed and no additional complaints, except as documented Psychiatric: Psychiatric: Reports no additional psychiatric complaints Endocrine: Endocrine: Reports no additional endocrine complaints Hematologic/Lymphatic: Hematologic/Lymphatic: Reports no additional hematologic/lymphatic complaints Allergic/Immunologic: Allergic/Immunologic: Reports no additional allergic/immunologic complaints PMFSH Past Medical History Medical History Sinusitis Multiple myeloma Hypertension Surgical History Surgical History H/O sinus surgery Previous back surgery Social History Social History Smoking status: Never smoker Alcohol intake: never Substance use: never Do You Feel Safe in your Home?: Yes Lack of Transportation: No Lack of Food: Never True Current Housing: I Have Housing Concerned About Future Housing: No Difficulty Paying Gas/Electric Bills: No Difficulty Paying for Meds: No Currently Unemployed: No Education: Master's Degree or Higher Difficulty w/ Childcare or Family Care: No Spiritual care concerns: No Exam 2 Const: General: confusion and ill appearing Nutritional Appearance: well nourished Limitations: altered mental status HENMT: Head: normal to inspection Ears: TM's normal bilaterally F li/Nose/Sinus: Normal external nose present Eyes: Conjunctivae: conjunctivae normal Pupils: Equal, round and reactive pupils present EOM: EOMs intact bilaterally Neck: Neck: normal visual inspection Chest: Chest palpation & inspection: normal inspection of the chest Resp: Effort & Inspection: normal respiratory effort and not labored A uscultation: clear to auscultation bilaterally and no crackles Cardio: Rate: regular rate Rhythm: regular rhythm Heart sounds: no murmurs GI: Inspection: non-distended GI Palp: Yes Soft to palpation and No Tenderness to palpation present (GI) Auscultation: normal bowel sounds : General: Yes bladder normal to palpation Back/Spine/Pelvis: Back: no CVA tenderness Skin: General skin exam: normal color Rashes: no rashes Wounds: no wounds Neuro: General: moves all extremities, no meningeal signs and no focal motor deficits Cranial nerves: Yes CN's II-XII intact bilaterally Speech: normal speech Gait exam (Neuro): Normal gait present Extrem: General: normal to inspection Psych: Mental Status: mental status grossly normal Affect: normal affect Attitude: cooperative Course Vital Signs Vital signs: Vital Signs Temperature 37.1 C 09/10/24 20:00 Pulse Rate 92 09/10/24 20:00 Respiratory Rate 16 09/10/24 20:00 Blood Pressure 122/60 09/10/24 20:00 Pulse Oximetry 98 09/10/24 20:00 Oxygen Delivery Room Air 09/10/24 20:00 Temperature 37.1 C 09/10/24 20:00 Pulse Rate 87 09/10/24 21:52 Respiratory Rate 20 09/10/24 21:52 Blood Pressure 132/62 09/10/24 21:52 Pulse Oximetry 97 09/10/24 21:52 Oxygen Delivery Room Air 09/10/24 21:52 MDM - Male Genitourinary MDM Narrative Medical decision making narrative: Patient is a 73-year-old male with low urinary output and fever over the past week. He had blood cultures positive last night and left AMA from the ER. We will do a sepsis workup at this time. Patient has bacteremia and sepsis situation where he will need emergent stents placed in his ureters as this is bilateral calculi in the ureters. I discussed the case with on-call Urology at [facility] and they accepted the patient and will be doing procedure this evening. Family wishes to go to [facility] over [facility] at this time as they will get to the procedure immediately. Lab Data Attestation: I reviewed the patient's lab results. 09/10/24 21:18 09/10/24 21:18 Labs: Lab Results 09/10/24 Range/Units 21:18 WBC 14.2 H (4.8-10.8) K/mm3 RBC 3.55 L (4.70-6.10) M/mm3 Hgb 11.2 L (12.4-15.3) g/dL Hct 34.8 L (37.0-46.0) % MCV 98.0 (78.0-102.0) fL MCH 31.5 H (27.0-31.0) pg MCHC 32.2 (32-36) g/dL RDW 15.9 H (11.6-14.4) % Plt Count 165 (150-420) K/mm3 MPV 10.0 (8.7-11.0) fl Immature Gran % (Auto) 0.8 H (0.0-0.0) % Neut % (Auto) 89.2 H (50.0-70.0) % Lymph % (Auto) 4.0 L (18.0-42.0) % Kenedy % (Auto) 5.9 (2.0-11.0) % Eos % (Auto) 0.0 L (1.0-6.0) % Baso % (Auto) 0.1 (0.0-1.0) % Lymph # (Auto) 0.57 L (1.10-4.50) K/mm3 [place]enedy # (Auto) 0.83 (0.10-0.90) K/mm3 Eos # (Auto) 0.00 L (0.02-0.50) K/mm3 Baso # (Auto) 0.02 (0.00-0.10) K/mm3 Abs Immat Gran (auto) 0.11 H (0.00-0.00) K/mm3 Absolute Neuts (auto) 12.64 H (1.70-7.20) K/mm3 Absolute Nucleated RBC 0.00 (0.00-0.00) K/mm3 Nucleated RBC % 0.0 (0-0.0) % % Immature Plt Fraction 1.0 (1.0-7.0) % Sodium 137 (136-145) mmol/L Potassium 3.5 (3.5-5.1) mmol/L Chloride 101 (98-108) mmol/L Carbon Dioxide 26 (21-32) mmol/L Anion Gap 10 (4-12) mmol/L BUN 44 H (7-18) mg/dL Creatinine 2.69 H (0.70-1.30) mg/dL Estim Creat Clear Calc 30 ml/min Estimated GFR 24 L (59 - ) Glucose 182 H (70-99) mg/dL Calculated Osmolality 300 H (285-295) mOsm/kg Lactic Acid 1.4 (0.4-2.0) mmol/L Calcium 8.9 (8.5-10.1) mg/dL Total Bilirubin 1.2 H (0.00-1.00) mg/dL AST 14 L (15-37) U/L ALT 15 L (16-63) U/L Alkaline Phosphatase 75 (46-116) U/L Troponin I 19.0 (0.00-60.4) ng/L Total Protein 6.3 L (6.4-8.2) g/dL Albumin 3.3 L (3.4-5.0) g/dL Urine Color Light yellow (Yellow) Urine Appearance Clear (Clear) Urine pH 5.5 (5.0-8.0) Ur Specific Trilla 1.015 (1.010-1.020) Urine Protein 1+ H (Negative) Urine Glucose (UA) Negative (Negative) Urine Ketones Negative (Negative) Ur Blood (Man) 2+ H (Negative) Urine Nitrate Negative (Negative) Urine Bilirubin Negative (Negative) Urine Urobilinogen 0.2 (0.2-1.0) mg/dL Leukocyte Esterase Rfl 1+ H (Negative) SIDRA/UL Urine RBC 11-20 H (0-2) /hpf Urine WBC 21-30 H (0-3) /hpf Ur Squamous Epith Cells None seen (Few) /hpf Urine Bacteria 1+ H (None) /hpf Imaging Data Attestation: I personally reviewed and interpreted this imaging study as follows: Radiologist's impression: CT scan of the abdomen and pelvis without contrast shows Redemonstration of multiple stones within the bladder, both are likely obstructing. Within the right UVJ is a 18 x 24 x 27 mm calculus. Within the left ureterovesicular junction, there are 2 calculi, the largest measuring 17 x 24 x 25 mm. The wall of the bladder is thickened. The prostate gland is minimally enlarged and contains multiple calcifications. IMPRESSION: Interval development of a small pericardial effusion. Redemonstration of multiple stones within the bladder with bilateral hydroureteronephrosis increased from previous examination. Cholelithiasis without evidence of cholecystitis. Multiple osseous lesions within the pelvis consistent with patient's history. Splenomegaly. Fatty infiltration of the liver. chest x-ray shows negative for acute process ECG Data EKG #1: Attestation: I personally reviewed and interpreted this ECG as follows: ECG completion date: 09/10/24 ECG completion time: 22:06 EKG Interpretation: normal rate, sinus rhythm, no ectopy, non-specific ST changes, normal QRS, normal QT and NL axis Discharge Plan Discharge Clinical Impression: Bilateral ureteral calculi, Acute UTI, Bacteremia, Bladder calculi, OJHN (acute kidney injury) Sepsis Qualifiers: Sepsis type: sepsis due to unspecified organism Sepsis acute organ dysfunction status: with acute organ dysfunction Severe sepsis acute organ dysfunction type: unspecified Severe sepsis shock status: without septic shock Qualified Code(s): A41.9 - Sepsis, unspecified organism; R65.20 - Severe sepsis without septic shock Patient Disposition: Acute Care Hospital Condition: Serious Patient Language: Bengali Prescriptions: No Action allopurinol 300 mg tablet 300 mg PO DAILY triamcinolone acetonide 0.5 % cream 1 applic TOPICAL BID acyclovir 400 mg Tablet 400 mg PO BID ferrous sulfate 325 mg (65 mg iron) Tablet 325 mg PO BID triamterene-hydrochlorothiazid 37.5-25 mg tablet 1 tablet PO DAILY Rx Instructions: 1 tab daily alternating with 1/2 tab daily budesonide 0.5 mg/2 mL Suspension For Nebulization 0.5 mg INHALATION DAILY diphenoxylate-atropine 2.5-0.025 mg Tablet 1 tablet PO Q2H PRN (Reason: Diarrhea) Qty: 12 0RF amoxicillin-pot clavulanate 875-125 mg tablet 1 tablet PO Q12H Qty: 14 0RF potassium chloride 10 mEq tablet extended release 10 meq PO DAILY nebivolol [Bystolic] 10 mg tablet 5 mg PO DAILY famotidine 20 mg PO BID hydrocodone-acetaminophen 10 - 325 mg PO Q6-8H PRN (Reason: Pain) Rx Instructions: 1/2 tablet losartan 25 mg PO DAILY levofloxacin 500 mg tablet 500 mg PO DAILY Qty: 7 0RF Follow-up/Referrals: Jatin Gamble MD [Primary Care Provider] - Time of Disposition: 21:56
--- OUTSIDE RECORDS SUMMARY | 2024-09-10 20:37 | XMS_ITS ---
Author Organization [facility] Address [address] [place] [address] Care Team Providers Care Supervisor Lending Activities Name Role Phone Jatin Gamble MD Primary Care Provider Hermelindo Butler MD Unavailable Roberto Rojo MD Unavailable [phone] Jatin Gamble MD Unavailable [phone] Lyndsey Fagan NP Unavailable [phone] Erlin Servin MD Unavailable [phone] Julian Valdez MD Unavailable Active Problems Patient Care Coordination No te Formatting of this note is d ifferent from the original. BMT Inpatient Care Coordination Overview Diagnosis MM Floor [address] Treatment Plan Clinical Trial [id number] [facility] Reason for Admission JOHN Transplant/IEC Planning BMT/IEC [...] Medical Assistants Post-Discharge Follow-Up Living Situation/Distance from [facility] (45 min) Caregiver Self, Lab/Transfusion Frequency Phone: Fax: Venous Access & Care implanted vascular device Local Oncologist Contact Phone: Fax: Post-Discharge Office Visit (H30) [facility] 08/31 Miscellaneous Notes: Problem Noted Date Diagnosed [...] is a risk of orbital injury and PRIMARY CARE NURSE injury which could result in blindness [...] this. Assessment & Plan (07/09/2022 7:42 PM ENGINEER SERGEANT): I talked with him quite a bit [...] weeks. Assessment & Plan (05/26/2022 4:16 PM ENGINEER SERGEANT): He does have pretty significant sinusitis and [...] day. Assessment & Plan (05/26/2022 4:17 PM ENGINEER SERGEANT): It is very possible that his cough could be due to sinusitis also. Hopefully that will continue to improve as we treat. He understands. Immunocompromised 11/13/2021 Multiple myeloma not having achieved remission 0 10/28/2021 Cancer Staging:Clinical stage from 10/16/2021:RISS Stage II(Egdv-8-bosfpwtdffjks (mg/L): 3.7, Albumin (g/dL): 4.2, ISS: Stage [...] and Dexamethasone in June 2021 Clinical trial [id number] initiated on 10/29/21; C46D1 08/03/24. BMT following [...] he got a TTE on 10/19 at [facility] however unclear why not currently in the system - May need to repeat TTE prior to treatment if results unavailable - Continue OI ppx with acyclovir 400mg BID - Begin trial [id number], a Bispecific Antibody Targeting BCMA treatment - [...] he got a TTE on 10/19 at [place] however unclear why not currently in the system - May need to repeat TTE prior to treatment if results unavailable - Continue OI ppx with acyclovir 400mg BID - Begin trial [id number], a Bispecific Antibody Targeting BCMA treatment - [...] BID Assessment & Plan (05/31/2021 10:51 AM ENGINEER SERGEANT): Continue home pepcid, asx Renal mass 05/30/2021 Assessment & Plan (05/31/2021 10:51 AM ENGINEER SERGEANT): Admitted for observation after L renal mass [...] 07/17/2023 Assessment & Plan (05/31/2021 10:52 AM ENGINEER SERGEANT): Follows with oncology on daratumumab monotherapy -counts [...] blood in urine Follow up pathology from [facility] high-grade papillary urothelial carcinoma (grade 2) --follow [...] blood in urine Follow up pathology from [facility] high-grade papillary urothelial carcinoma (grade 2) --follow [...] supplementation Assessment & Plan (05/31/2021 10:51 AM ENGINEER SERGEANT): Stable on home losartan, nebivolol, triamterene-HCTZ 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/23/2013 Current Treatment and Therapy Plans - INPT/OUTPT - [facility] - MM - [id number] - Arm B - Dose Expansion Phase [...]
--- OUTSIDE RECORDS SUMMARY | 2024-09-10 20:37 | XMS_ITS | Encounter Summary ---
Author Organization [facility] Address [address] [place] [address] Phone Care Team Providers Care Looping Machine Operator Name Role Phone Jatin Gamble MD Primary Care Provider [phone] Hermelindo Butler MD Unavailable Roberto Rojo MD Unavailable [phone] Jatin Gamble MD Unavailable [phone] Garry Dukes MD Unavailable [phone] Lyndsey Fagan NP Unavailable Erlin Servin MD Unavailable [phone] Julian Valdez MD Unavailable [phone] Encounter Details Date Type Department Care Team (Latest Contact Info) Description 10/16/2017 Orders Only WU CONVERSION Scanning, Provider Social History Tobacco Use Types Packs/Day Years Used Date Smoking Tobacco: Never Assessed Sex and Gender Information Value Date Recorded Sex Assigned at Not on file 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 Gender Identity Not on file Sexual Orientation [...] documented as of this encounter Care Teams Looping Machine Operator Relationship Specialty Start Date End Date Jatin Gamble MD [address] [place] [address] PCP - General 10/07/16 Hermelindo Butler MD [address] [place] [address] [facility] 12/02/17 Roberto Rojo MD [address] [place] [address] [facility] 12/02/17 Jatin Gamble MD [address] [place] [address] Referring Physician Internal Medicine 12/02/17 Garry Dukes MD [address] [place], [place] [id number] Referring Physician Urology 12/02/17 05/27/23 Lyndsey Fagan NP [address] [place] [address] Nurse Practitioner Medical Oncology 08/03/20 Erlin Servin MD [address] [place] [address] Consulting Physician Otolaryngology 10/04/22 [place] [address] [place] [address] Consulting Physician Urology 05/28/23 documented as of this encounter
--- OUTSIDE RECORDS SUMMARY | 2024-09-10 20:37 | XMS_ITS | Clinical Summary ---
Author Organization [facility] Address [address] [place] [address] Care Team Providers Care Forklift Material Handler Name Role Phone Unavailable Primary Care Provider [...]
--- OUTSIDE RECORDS SUMMARY | 2024-09-10 20:37 | XMS_ITS | Continuity of Care Document ---
Author Organization [email or web address] [address] [facility] Address [address] [facility] [address] [place] [address] Phone Care Team Providers Care Ammunition Specialist Name Role Phone Cesar Vora MD, [...] ER 100 mg tablet,extended release - Active Clancy 5 mg-325 mg tablet take 1 tablet [...] Copied on Encounter Office/outpa tient Visit, [facility], [id number] [place] [address] [address], [place], [place], [address], [place] tel:[phone] SEC [place] Eyelid infections (chief complaint) Episcleritis of left eyeOther vitreous opacities, bilateralOth er visual disturbances 2 Vielka Cesar. [address] [facility], [address], [place], [place], [address], [place]. tel:[phone] Specialist: Hermelindo Lopez MD, [address] [facility] [address], [place], [address]. tel:[phone] Provider: Vicky Ray OD, [address] [facility], [place], [address]. tel:[phone] [facility], [address], [place], [place], [address], [place] tel:[phone] SEC [place] Professional yag pc OS evaluation (chief complaint) Bilateral artificial lens implantOther secondary cataract, left eyeCyst of right eyelidPVD (posterior vitreous detachment), left eyeBilateral ocular hypertension Oct-1 8 Jose R Franco. [address] [facility], [address], [place], [place], [address], [place]. tel:[phone] Referring Provider: Michele Orellana OD A, [address] [place] [address] [facility], [place], [address]. tel:[phone] [facility] Hospital[facility] Eye [facility] CenterSocial Strategy [address] [facility], [address] [place], [place] [address], [place], [place], [address], [place] tel:[phone] SEC Steven Sifuentes Yag PC Eval (chief complaint) No Information 7 Vielka Cesar. [address] [place], [place] [address], [address], [place], [place], [address], [place]. tel:[phone] Referring Provider: Michele Orellana OD A, [address] [place] [address], [place], [address]. tel:[phone] [employer] [facility] Hospital[facility], [address], [place], [place], [address], [place] tel:[phone] SEC [place] Petrona Coybienvenidorosalio No Information 7 Lynn Cesar. [facility] [employer], [address], [place], [place], [address], [place]. tel:[phone] Gift Card [employer] [facility] HospitalSocial Strategy [address] [facility], [facility] [address], [place], [place], [address], [place] tel:[phone] [employer] [facility] No Information 5 Vielka Cesar. [facility] [employer], [address], [place], [place], [address], [place]. tel:[phone] Referring Provider: Michele Orellana OD A, [address] [place] [address], [place], [address]. tel:[phone] [employer] [facility] Hospital[facility], [id number] [place] [address] [address], [place], [place], [address], [place] tel:[phone] SEC Steven N [address] No Information 5 Vielka Guerrero. [address] [facility], [address], [place], [place], [address], [place]. tel:[phone] Referring Provider: Michele Acevedo, [address] [facility], [place], [address]. tel:[phone] [facility], [address] [place] [address] [address], [place], [place], [address], [place] tel:[phone] [facility] No Information 5 Vielka Guerrero. [facility] [address] [facility], [address], [place], [place], [address], [place]. tel:[phone] Referring Provider: Michele Acevedo, [address] [facility], [place], [address]. tel:[phone] [facility], [address] [place] [address] [address], [place], [place], [address], [place] tel:[phone] SEC [place] [address] Cataract Evaluation (chief complaint) No Information 5 Vielka Guerrero. [address] [place] [address] [facility], [address], [place], [place], [address], [place]. tel:[phone] Referring Provider: Michele Acevedo, [address] [place], [address]. tel:[phone] Family History Family Member Type Diagnosis Age At Onset Mother Problem (finding) diabetes melli tus in first degree relative Mother Problem (finding) glaucoma Payers Payer name Insurance type Covered republican ID Authoriza tion(s) [place] [id number] [employer] Mdcr Supp CI [id number] Social History Type Description Quantity Date Captured [...]
--- OUTSIDE RECORDS SUMMARY | 2024-09-10 20:37 | XMS_ITS | Encounter Summary ---
Author Organization [facility] Address [address] [place] [address] Phone Care Team Providers Care Inspector Fibrous Wallboard Name Role Phone Jatin Gamble MD Primary Care Provider Hermelindo Butler MD Unavailable Roberto Rojo MD Unavailable [phone] Jatin Gamble MD Unavailable [phone] Lyndsey Fagan NP Unavailable [phone] Erlin Servin MD Unavailable Julian Valdez MD Unavailable Encounter Details Date Type Department Care Team (Late st Contact Info) Description 09/07/2024 Orders Only [facility] Bone Marrow Transplant [address] [facility] Floor [address] [place] [address] Hermelindo Butler MD [address] DIV IM BONE MARROW TRANSPLANT, [address] [place] [address] Social History Tobacco Use Types [...] on file 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 Gender Identity Not on file Sexual Orientation Not on file documented as of this encounter Plan of Treatment Not on file documented as of this encounter Visit Diagnoses Not on filedocumented in this encounter Care Teams Inspector Fibrous Wallboard Relationship Specialty Start Date End Date Jatin Gamble MD [address] [place] [address] PCP - General 10/07/16 Hermelindo Butler MD [address] [place] [address] [facility] 12/02/17 Roberto Rojo MD [address] [place] [address] [facility] and Oncology 12/02/17 Jatin Gamble MD [address] [place] [address] Referring Physician Internal Medicine 12/02/17 Lyndsey Fagan NP [address] [place] [address] Nurse Practitioner Medical Oncology 08/03/20 Erlin Servin MD [address] [place] [address] Consulting Physician Otolaryngology 10/04/22 [place] [address] [place] [address] Consulting Physician Urology 05/28/23 documented as of this encounter
--- OUTSIDE RECORDS SUMMARY | 2024-09-10 20:37 | XMS_ITS | Encounter Summary ---
Author Organization [facility] Address [address] [place] [address] Phone Care Team Providers Care Engraver Automatic Name Role Phone Jatin Gamble MD Primary Care Provider Hermelindo Butler MD Unavailable Roberto Rojo MD Unavailable Jatin Gamble MD Unavailable [phone] Lyndsey Fagan NP Unavailable [phone] Erlin Servin MD Unavailable Julian Valdez MD Unavailable Encounter Details Date Type Department Care Team (Late st Contact Info) Description 09/06/2024 Orders Only [facility] Bone Marrow Transplant [address] [place] [address] Lyndsey Fagan NP [address] DIV BONE MARROW TRANSPLANT, [address] [place], [place] [id number] Social History Tobacco Use Types Packs/Day Years [...] on file 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 Gender Identity Not on file Sexual Orientation Not on file documented as of this encounter Plan of Treatment Not on file documented as of this encounter Visit Diagnoses Not on filedocumented in this encounter Care Teams Engraver Automatic Relationship Specialty Start Date End Date Jatin Gamble MD [address] [place] [address] PCP - General 10/07/16 Hermelindo Butler MD [address] [place] [address] [facility] 12/02/17 Roberto Rojo MD [address] [place] [address] [facility]cology 12/02/17 Jatin Gamble MD [address] [place] [address] Referring Physician Internal Medicine 12/02/17 Lyndsey Fagan NP [address] [place] [address] Nurse Practitioner Medical Oncology 08/03/20 Erlin Servin MD [address] [place] [address] Consulting Physician Otolaryngology 10/04/22 [place] [address] [place] [address] Consulting Physician Urology 05/28/23 documented as of this encounter
--- OUTSIDE RECORDS SUMMARY | 2024-09-10 20:37 | XMS_ITS | Encounter Summary ---
Author Organization [facility] Healthcare Address [address] [place] [address] Care Team Providers Care Contract Designer Name Role Phone Jatin Gamble MD Primary Care Provider Hermelindo Butler MD Unavailable Roberto Rojo MD Unavailable [phone] Jatin Gamble MD Unavailable [phone] Lyndsey Fagan NP Unavailable [phone] Erlin Srevin MD Unavailable [phone] Julian Valdez MD Unavailable Encounter Details Date Type Department Care Team (Late st Contact Info) Description 09/10/2024 [place] [address] [place] [address] Elevated prostate specific antigen (PSA) (Primary Dx) [...] on file 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 Gender Identity Not on file Sexual Orientation Not on file documented as of this encounter Plan of Treatment Not on file documented as of this encounter Visit Diagnoses Diagnosis Elevated prostate specific antigen (PSA)- Primary documented in this encounter Care Teams Contract Designer Relationship Specialty Start Date End Date Jatin Gamble MD [address] [place] [address] PCP - General 10/07/16 Hermelindo Butler MD [address] [place] [address] Medical Oncologist/Hematologrust Medical Oncology 12/02/17 Roberto Rojo MD [address] [place] [address] Medical Oncologist/Hematologrust Hematology and Oncology 12/02/17 Jatin Gamble MD [address] [place] [address] Referring Physician Internal Medicine 12/02/17 Lyndsey Fagan NP [address] [place] [address] Nurse Practitioner Medical Oncology 08/03/20 Erlin Servin MD [address] [place] [address] Consulting Physician Otolaryngology 10/04/22 [place] [address] [place] [address] Consulting Physician Urology 05/28/23 documented as of this encounter
--- OUTSIDE RECORDS SUMMARY | 2024-09-10 20:37 | XMS_ITS | Encounter Summary ---
Author Organization [facility] Healthcare Address [address] [place] [address] Care Team Providers Care Beater Head Name Role Phone Jatin Gamble MD Primary Care Provider [phone] Hermelindo Butler MD Unavailable Roberto Rojo MD Unavailable [phone] Jatin Gamble MD Unavailable [phone] Garry Dukes MD Unavailable Lyndsey Fagan NP Unavailable Erlin Servin MD Unavailable [phone] Julian Valdez MD Unavailable Encounter Details Date Type Department Care Team (Late st Contact Info) Description 11/22/2021 Documentation [facility] Case Management [address] [place] [address] Forrest Epstein, RN Social History Tobacco Use Types Packs/Day Years Used Date Smoking Tobacco: Never Smokeless Tobacco: Never Alcohol Use Standard Drinks/Week Comments No 0 (1 standard drink = 0.6 oz pur e alcohol) Sex and Gender Information Value Date Recorded Sex Assigned at Not on file 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 Gender Identity Not on file Sexual Orientation [...] documented as of this encounter Care Teams Beater Head Relationship Specialty Start Date End Date Jatin Gamble MD [address] [place] [address] PCP - General 10/07/16 Hermelindo Butler MD [address] [place] [address] [facility] 12/02/17 Roberto Rojo MD [address] [place] [id number] [facility] H[facility] Oncology 12/02/17 Jatin Gamble MD [address] [place] [address] Referring Physician Internal Medicine 12/02/17 Garry Dukes MD [address] [place], [place] [id number] Referring Physician Urology 12/02/17 05/27/23 Lyndsey Fagan NP [address] [place], [place] [id number] Nurse Practitioner Medical Oncology 08/03/20 Erlin Servin MD [address] [place] [address] Consulting Physician Otolaryngology 10/04/22 [place] [address] [place] [address] Consulting Physician Urology 05/28/23 documented as of this encounter
--- OUTSIDE RECORDS SUMMARY | 2024-09-10 20:38 | XMS_ITS | Clinical Summary ---
Author Organization [facility] Address [address] [place] [address] Care Team Providers Care Comb Tender Name Role Phone Jatin Gamble MD Primary Care Provider [phone] Hermelindo Butler MD Unavailable Roberto Rojo MD Unavailable Jatin Gamble MD Unavailable [phone] Lyndsey Fagan NP Unavailable Erlin Servin MD [...] Inpatient Care Coordination Overview Diagnosis MM Floor [address] Treatment Plan Clinical Trial [id number] Ramesh Reason for Admission JOHN Transplant/IEC Planning [...] Medical Assistants Post-Discharge Follow-Up Living Situation/Distance from [place], [place] (45 min) Caregiver Self, Lab/Transfusion Frequency Phone: Fax: Venous Access & Care implanted vascular device Local Oncologist Contact Phone: Fax: Post-Discharge Office Visit (H30) [facility] [place], [place] 08/31 Miscellaneous Notes: Problem Noted Date Diagnosed [...] is a risk of orbital injury and VASCULAR TECHNOLOGIST injury which could result in blindness or [...] this. Assessment & Plan (07/09/2022 7:42 PM SECRETARY OFFICE CLERK): I talked with him quite a bit [...] weeks. Assessment & Plan (05/26/2022 4:16 PM SECRETARY OFFICE CLERK): He does have pretty significant sinusitis and [...] day. Assessment & Plan (05/26/2022 4:17 PM SECRETARY OFFICE CLERK): It is very possible that his cough could be due to sinusitis also. Hopefully that will continue to improve as we treat. He understands. Immunocompromised 11/13/2021 Multiple myeloma not having achieved remission 0 10/28/2021 Cancer Staging:Clinical stage from 10/16/2021:RISS Stage II(Edjl-0-jfslvzkvzditz (mg/L): 3.7, Albumin (g/dL): 4.2, ISS: Stage [...] and Dexamethasone in June 2021 Clinical trial [id number] initiated on 10/29/21; C46D1 08/03/24. BMT following [...] he got a TTE on 10/19 at [place] however unclear why not currently in the system - May need to repeat TTE prior to treatment if results unavailable - Continue OI ppx with acyclovir 400mg BID - Begin trial [id number], a Bispecific Antibody Targeting BCMA treatment - [...] he got a TTE on 10/19 at [place] however unclear why not currently in the system - May need to repeat TTE prior to treatment if results unavailable - Continue OI ppx with acyclovir 400mg BID - Begin trial [id number], a Bispecific Antibody Targeting BCMA treatment - [...] BID Assessment & Plan (05/31/2021 10:51 AM SECRETARY OFFICE CLERK): Continue home pepcid, asx Renal mass 05/30/2021 Assessment & Plan (05/31/2021 10:51 AM SECRETARY OFFICE CLERK): Admitted for observation after L renal mass [...] 07/17/2023 Assessment & Plan (05/31/2021 10:52 AM SECRETARY OFFICE CLERK): Follows with oncology on daratumumab monotherapy -counts [...] blood in urine Follow up pathology from beobtisoa-fju-flxtitsr high-grade papillary urothelial carcinoma (grade 2) --follow [...] blood in urine Follow up pathology from rjpkwuvsy-pxv-egzsjoot high-grade papillary urothelial carcinoma (grade 2) --follow [...] supplementation Assessment & Plan (05/31/2021 10:51 AM SECRETARY OFFICE CLERK): Stable on home losartan, nebivolol, triamterene-HCTZ Secondary [...] antigen (PSA) (Primary Dx) 09/07/2024 Orders Only [facility] Bone Marrow Transplant [address] [place] [phone] Hermelindo Hill MD 09/06/2024 Orders Only [facility] Bone Marrow Transplant [address] [place] [phone] Lyndsey Fagan NP 08/31/2024 10:00 AM CDT Infusion [facility] [place] - Infusion [address] [facility] 6 [place] [address] Multiple myeloma in relapse (HCC) (Primary Dx); Multiple myeloma in remission (HCC) 08/31/2024 9:00 AM CDT Office Visit [facility] Bone Marrow Transplant [address] [place] [phone] Hermelindo Hill MD Multiple myeloma in relapse (HCC) (Primary Dx); Multiple myeloma in remission (HCC) 08/31/2024 8:45 AM CDT Clinical Support [facility] - Lab Collection [address] [facility] 6 [place] [address] Multiple myeloma in relapse (HCC); Multiple myeloma not having achieved remission (HCC); Multiple myeloma, remission status unspecified (HCC) 08/31/2024 8:15 AM CDT Clinical Support [facility] Oncology Lab [facility] [address] [place] [address] Multiple myeloma not having achieved remission (HCC); Multiple myeloma in remission (HCC) 08/30/2024 Orders Only [facility] Scanning, Provider 08/27/2024 Documentation Nephrology Ani Anne LCSW 08/27/2024 Orders Only [facility] Bone Marrow Transplant [facility] [address] [place] [address] Hermelindo Hill MD Multiple myeloma not having achieved remission (HCC) (Primary Dx); JOHN (acute kidney injury) 08/25/2024 6:50 AM CDT Ancillary Procedure [facility] Vascular Lab IP 1 [facility] [address] [place] [address] 08/23/2024 11:13 PM CDT - 08/26/2024 4:50 PM CDT Hospital Encounter [address] [phone] Hermelindo Hill MD Qapaja, Thabet J.M., MD JOHN (acute kidney injury) (Primary Dx) Discharge Disposition: Discharge to home or self care 08/23/2024 7:10 PM CDT - 08/23/2024 11:59 PM CDT Hospital Encounter [facility] Radiology [address] [place] [address] Discharge Disposition: Discharge to home or self care 08/23/2024 5:24 PM CDT - 08/23/2024 11:59 PM CDT Hospital Encounter [facility] [address] [place] [address] Hermelindo Hill MD Elevated serum creatinine (Primary Dx); Multiple myeloma, remission status unspecified (HCC) Discharge Disposition: Discharge to home or self care 08/23/2024 Orders Only [address] [phone] Hermelindo Hill MD 08/23/2024 Orders Only [facility] Bone Marrow Transplant [address] [phone] Hermelindo Hill MD Multiple myeloma, remission status unspecified (HCC) (Primary Dx) 08/20/2024 Orders Only [facility] Scanning, Provider 08/10/2024 Orders Only [facility] Scanning, Provider 08/06/2024 1:45 PM SECRETARY OFFICE CLERK Clinical Support [facility] - Lab Collection [address] [address] 08/06/2024 1:00 PM SECRETARY OFFICE CLERK - 08/06/2024 11:59 PM SECRETARY OFFICE CLERK Hospital Encounter [facility] 1 [place] [address] Multiple myeloma, remission status unspecified (HCC) Discharge Disposition: Discharge to home or self care 08/06/2024 8:00 AM SECRETARY OFFICE CLERK Infusion [facility] [place] - Infusion [address] [facility] Floor 6 [place] [address] Multiple myeloma not having achieved remission (HCC) (Primary Dx); Hypogammaglobuline hakeem 08/06/2024 7:15 AM SECRETARY OFFICE CLERK Clinical Support [facility] - Lab Collection [address] [facility] Floor [address] [place] [address] Multiple myeloma in relapse (HCC) (Primary Dx); Multiple myeloma, remission status unspecified (HCC); JOHN (acute kidney injury) 08/06/2024 Telephone [facility] Bone Marrow Transplant [address] [phone] Lyndsey Fagan NP 08/06/2024 Orders Only [facility] Bone Marrow Transplant [address] [facility] 6 [place] [phone] Lyndsey Fagan NP Multiple myeloma, remission status unspecified (HCC) (Primary Dx) 08/06/2024 Orders Only [facility] Bone Marrow Transplant [address] [place] [phone] Lyndsey Fagan NP JOHN (acute kidney injury) (Primary Dx) 08/06/2024 Orders Only [facility] Bone Marrow Transplant [address] [place] [phone] Hermelindo Hill MD Multiple myeloma, remission status unspecified (HCC) (Primary Dx) 08/03/2024 9:30 AM SECRETARY OFFICE CLERK Infusion [facility] - Infusion [address] [place] [address] 6 [place] [address] Multiple myeloma in relapse (HCC) (Primary Dx); Multiple myeloma in remission (HCC) 08/03/2024 8:30 AM SECRETARY OFFICE CLERK Office Visit [facility] Bone Marrow Transplant [address] [place] [phone] Hermelindo Hill MD Multiple myeloma, remission status unspecified (HCC) (Primary Dx); Multiple myeloma in remission (HCC); Multiple myeloma in relapse (HCC) 08/03/2024 7:30 AM SECRETARY OFFICE CLERK Clinical Support [facility] - Lab Collection [address] [place] [address] Multiple myeloma in remission (HCC); Multiple myeloma, remission status unspecified (HCC); Multiple myeloma in relapse (HCC) 08/03/2024 Orders Only [facility] Bone Marrow Transplant [address] [place] [phone] Hermelindo Hill MD 08/03/2024 Orders Only [facility] Bone Marrow Transplant [address] [place] [phone] Hermelindo Hill MD 08/03/2024 Orders Only [facility] Bone Marrow Transplant [address] [place] [phone] Hermelindo Hill MD 08/02/2024 Telephone [facility] Bone Marrow Transplant [address] [place] [address] Lyndsey Fagan NP 07/30/2024 Telephone [facility] Bone Marrow Transplant [address] [place] [phone] Hermelindo Hill MD 07/27/2024 Telephone [facility] Bone Marrow Transplant [address] [place] [phone] Hermelindo Hill MD 07/26/2024 Orders Only [facility] Bone Marrow Transplant [address] [place] [phone] Hermelindo Hill MD 07/26/2024 Orders Only [facility] Bone Marrow Transplant [address] [place] [phone] Hermelindo Hill MD 07/26/2024 Telephone [facility] Bone Marrow Transplant [address] [place] [phone] Margaret Kay RMA Medical Question/Miscellan eous 07/13/2024 10:00 AM SECRETARY OFFICE CLERK Infusion [facility] - Infusion [address] [place] [address] Multiple myeloma in relapse (HCC) (Primary Dx); Multiple myeloma in remission (HCC) 07/13/2024 9:00 AM SECRETARY OFFICE CLERK Office Visit [facility] Bone Marrow Transplant [address] [place] [phone] Hermelindo Hill MD Multiple myeloma, remission status unspecified (HCC) (Primary Dx); Multiple myeloma in remission (HCC); Hypogammaglobuline hakeem 07/13/2024 8:00 AM SECRETARY OFFICE CLERK Clinical Support [facility] - Lab Collection [address] [place] [address] 6 [place] [address] Multiple myeloma in remission (HCC); Multiple myeloma in relapse (HCC); Multiple myeloma, remission status unspecified (HCC) 07/13/2024 Telephone [facility] Bone Marrow Transplant [address] [place] [phone] Fadumo Tobar RN 06/22/2024 8:30 AM SECRETARY OFFICE CLERK Infusion [facility] - Infusion [address] [place] [address] Multiple myeloma, remission status unspecified (HCC) (Primary Dx); Multiple myeloma in remission (HCC); Multiple myeloma in relapse (HCC) 06/22/2024 8:00 AM SECRETARY OFFICE CLERK Office Visit [facility] Bone Marrow Transplant [address] [place] [phone] Hermelindo Hill MD Multiple myeloma in relapse (HCC) (Primary Dx); Multiple myeloma, remission status unspecified (HCC); Hypogammaglobuline hakeem; Obesity, morbid (HCC) 06/22/2024 7:00 AM SECRETARY OFFICE CLERK Clinical Support [facility] - Lab Collection [address] [place] [address] Multiple myeloma, remission status unspecified (HCC); Multiple myeloma in relapse (HCC) 06/22/2024 Orders Only [facility] Bone Marrow Transplant [address] [place] [phone] Hermelindo Hill MD 06/22/2024 Orders Only [facility] Bone Marrow Transplant [address] [place] [phone] Hermelindo Hill MD Multiple myeloma in remission (HCC) (Primary Dx); Multiple myeloma in relapse (HCC) 06/14/2024 Telephone [facility] Bone Marrow Transplant [address] [place] [phone] Margaret Kay RMA Reschedule from Last [...] chemotherapy has chemo every 21 days at [facility] tx 09/24/22 Cough patient states D r [...] on file Legal Sex 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 SECRETARY OFFICE CLERK Gender Identity Not on file Sexual [...] history exists Medical Devices Implanted Type Area Linesperson Device Identifier Shelf Expiration Date Model / [...] Read Routine (OP Routine) 08/06/2024 2:42 PM SECRETARY OFFICE CLERK Multiple myeloma, remission status unspecified (HCC) URINALYSIS, MICROSCOPIC ONLY Routine 08/06/2024 9:19 AM SECRETARY OFFICE CLERK JOHN (acute kidney injury) PROTEIN / CREATININE RATIO, URINE, RANDOM Routine 08/06/2024 9:19 AM SECRETARY OFFICE CLERK JOHN (acute kidney injury) URINALYSIS AND REFLEX TO MICROSCOPIC Routine 08/06/2024 9:19 AM SECRETARY OFFICE CLERK JOHN (acute kidney injury) EGFR Routine 08/06/2024 7:43 AM SECRETARY OFFICE CLERK Multiple myeloma, remission status unspecified (HCC) DIFFERENTIAL AUTO Routine 08/06/2024 7:4 3 AM SECRETARY OFFICE CLERK Multiple myeloma, remission status unspecified (HCC) LACTATE DEHYDROGENASE Routine 08/06/2024 7:43 AM SECRETARY OFFICE CLERK Multiple myeloma, remission status unspecified (HCC) CBC WITH AUTO DIFFERENTIAL Routine 08/06/2024 7:43 AM SECRETARY OFFICE CLERK Multiple myeloma, remission status unspecified (HCC) COMPREHENSIVE METABOLIC PANEL Routine 08/06/2024 7:43 AM SECRETARY OFFICE CLERK Multiple myeloma, remission status unspecified (HCC) LIPID PANEL Routine 08/06/2024 7:43 AM SECRETARY OFFICE CLERK Multiple myeloma, remission status unspecified (HCC) PSA DIAGNOSTIC Routine 08/06/2024 7:43 AM SECRETARY OFFICE CLERK Multiple myeloma, remission status unspecified (HCC) PROTIME-INR STAT 08/03/2024 9:21 AM SECRETARY OFFICE CLERK Multiple myeloma in relapse (HCC) APTT STAT 08/03/2024 9:21 AM SECRETARY OFFICE CLERK Multiple myeloma in relapse (HCC) MAGNESIUM STAT 08/03/2024 7:40 AM SECRETARY OFFICE CLERK Multiple myeloma in relapse (HCC) GAMMA GT STAT 08/03/2024 7:40 AM SECRETARY OFFICE CLERK Multiple myeloma in relapse (HCC) EGFR Routine 08/03/2024 7:40 AM SECRETARY OFFICE CLERK Multiple myeloma, remission status unspecified (HCC) DIFFERENTIAL AUTO Routine 08/03/2024 7:4 0 AM SECRETARY OFFICE CLERK Multiple myeloma, remission status unspecified (HCC) CBC WITH AUTO DIFFERENTIAL Routine 08/03/2024 7:40 AM SECRETARY OFFICE CLERK Multiple myeloma, remission status unspecified (HCC) COMPREHENSIVE METABOLIC PANEL Routine 08/03/2024 7:40 AM SECRETARY OFFICE CLERK Multiple myeloma, remission status unspecified (HCC) IGA Routine 08/03/2024 7:40 AM SECRETARY OFFICE CLERK Multiple myeloma, remission status unspecified (HCC) IGG Routine 08/03/2024 7:40 AM SECRETARY OFFICE CLERK Multiple myeloma, remission status unspecified (HCC) IGM Routine 08/03/2024 7:40 AM SECRETARY OFFICE CLERK Multiple myeloma, remission status unspecified (HCC) IMMUNOGLOBULIN FREE LIGHT CHAINS Routine 08/03/2024 7:40 AM SECRETARY OFFICE CLERK Multiple myeloma, remission status unspecified (HCC) LACTATE DEHYDROGENASE Routine 08/03/2024 7:40 AM SECRETARY OFFICE CLERK Multiple myeloma, remission status unspecified (HCC) PROTEIN ELECTROPHORESIS, WITH REFLEX, SERUM Routine 08/03/2024 7:40 AM SECRETARY OFFICE CLERK Multiple myeloma, remission status unspecified (HCC) IMMUNOTYPING Routine 08/03/2024 7:40 AM SECRETARY OFFICE CLERK Multiple myeloma, remission status unspecified (HCC) HEMOGLOBIN A1C Routine 08/03/2024 7:40 AM SECRETARY OFFICE CLERK Multiple myeloma, remission status unspecified (HCC) URINALYSIS, MICROSCOPIC ONLY Routine 08/03/2024 7:30 AM SECRETARY OFFICE CLERK Multiple myeloma, remission status unspecified (HCC) URINE CULTURE Routine 08/03/2024 7:30 AM SECRETARY OFFICE CLERK URINALYSIS AND REFLEX TO MICROSCOPIC AND CULTURE Routine 08/03/2024 7:30 AM SECRETARY OFFICE CLERK Multiple myeloma, remission status unspecified (HCC) EGFR STAT 07/13/2024 7:40 AM SECRETARY OFFICE CLERK Multiple myeloma in relapse (HCC) DIFFERENTIAL AUTO STAT 07/13/2024 7:4 0 AM SECRETARY OFFICE CLERK Multiple myeloma in relapse (HCC) IGA Routine 07/13/2024 7:40 AM SECRETARY OFFICE CLERK Multiple myeloma, remission status unspecified (HCC) IGG Routine 07/13/2024 7:40 AM SECRETARY OFFICE CLERK Multiple myeloma, remission status unspecified (HCC) IGM Routine 07/13/2024 7:40 AM SECRETARY OFFICE CLERK Multiple myeloma, remission status unspecified (HCC) IMMUNOGLOBULIN FREE LIGHT CHAINS Routine 07/13/2024 7:40 AM SECRETARY OFFICE CLERK Multiple myeloma, remission status unspecified (HCC) PROTEIN ELECTROPHORESIS, WITH REFLEX, SERUM Routine 07/13/2024 7:40 AM SECRETARY OFFICE CLERK Multiple myeloma, remission status unspecified (HCC) IMMUNOTYPING Routine 07/13/2024 7:40 AM SECRETARY OFFICE CLERK Multiple myeloma, remission status unspecified (HCC) LACTATE DEHYDROGENASE Routine 07/13/2024 7:40 AM SECRETARY OFFICE CLERK Multiple myeloma in relapse (HCC) GAMMA GT STAT 07/13/2024 7:40 AM SECRETARY OFFICE CLERK Multiple myeloma in relapse (HCC) MAGNESIUM STAT 07/13/2024 7:40 AM SECRETARY OFFICE CLERK Multiple myeloma in relapse (HCC) COMPREHENSIVE METABOLIC PANEL STAT 07/13/2024 7:40 AM SECRETARY OFFICE CLERK Multiple myeloma in relapse (HCC) CBC WITH AUTO DIFFERENTIAL STAT 07/13/2024 7:40 AM SECRETARY OFFICE CLERK Multiple myeloma in relapse (HCC) APTT STAT 07/13/2024 7:24 AM SECRETARY OFFICE CLERK Multiple myeloma in relapse (HCC) PROTIME-INR STAT 07/13/2024 7:24 AM SECRETARY OFFICE CLERK Multiple myeloma in relapse (HCC) IMMUNOTYPING Routine 06/22/2024 7:20 AM SECRETARY OFFICE CLERK Multiple myeloma, remission status unspecified (HCC) EGFR Routine 06/22/2024 7:20 AM SECRETARY OFFICE CLERK Multiple myeloma, remission status unspecified (HCC) DIFFERENTIAL AUTO Routine 06/22/2024 7:2 0 AM SECRETARY OFFICE CLERK Multiple myeloma, remission status unspecified (HCC) CBC WITH AUTO DIFFERENTIAL Routine 06/22/2024 7:20 AM SECRETARY OFFICE CLERK Multiple myeloma, remission status unspecified (HCC) COMPREHENSIVE METABOLIC PANEL Routine 06/22/2024 7:20 AM SECRETARY OFFICE CLERK Multiple myeloma, remission status unspecified (HCC) IGA Routine 06/22/2024 7:20 AM SECRETARY OFFICE CLERK Multiple myeloma, remission status unspecified (HCC) IGG Routine 06/22/2024 7:20 AM SECRETARY OFFICE CLERK Multiple myeloma, remission status unspecified (HCC) IGM Routine 06/22/2024 7:20 AM SECRETARY OFFICE CLERK Multiple myeloma, remission status unspecified (HCC) IMMUNOGLOBULIN FREE LIGHT CHAINS Routine 06/22/2024 7:20 AM SECRETARY OFFICE CLERK Multiple myeloma, remission status unspecified (HCC) LACTATE DEHYDROGENASE Routine 06/22/2024 7:20 AM SECRETARY OFFICE CLERK Multiple myeloma, remission status unspecified (HCC) PROTEIN ELECTROPHORESIS, WITH REFLEX, SERUM Routine 06/22/2024 7:20 AM SECRETARY OFFICE CLERK Multiple myeloma, remission status unspecified (HCC) MAGNESIUM STAT 06/22/2024 7:20 AM SECRETARY OFFICE CLERK Multiple myeloma in relapse (HCC) GAMMA GT STAT 06/22/2024 7:20 AM SECRETARY OFFICE CLERK Multiple myeloma in relapse (HCC) PROTIME-INR STAT 06/22/2024 7:20 AM SECRETARY OFFICE CLERK Multiple myeloma in relapse (HCC) APTT STAT 06/22/2024 7:20 AM SECRETARY OFFICE CLERK Multiple myeloma in relapse (HCC) HEPATITIS C ANTIBODY STAT 10/16/2021 9:50 AM CDT Multiple myeloma in relapse (HCC) from Last 3 Months or Most Recently Relevant to Health Maintenance Results * Differential, auto (08/31/2024 8:12 AM CDT) Neutrophil abs 6.0 1.5 - 6.5 K/cumm Comment:Testing performed by : [facility], [address] [place] [phone] Lymphocyte abs 1.0 0.8 - 3.3 K/cumm [facility] Comment:Testing performed by : [facility], [address] [place] [phone] Monocyte abs 0.6 0.2 - 0.8 K/cumm [facility] Comment:Testing performed by : [facility], [address] [place] [phone] Eosinophil abs 0.3 0.0 - 0.5 K/cumm [facility] Comment:Testing performed by : [facility], [address] [place] [phone] Basophil abs 0.1 0.0 - 0.1 K/cumm [facility] Comment:Testing performed by : [facility], [address] [place] [phone] Neutrophil pct 75.2 % [facility] Comment: Interpretive Data Percent cell count reference ranges are not reported, since discordance with absolute values may lead to misinterpretation of CBC data. Current Interpretive Data was last revised on 2017. Testing performed by: [facility], [address] [place] [phone] Lymphocyte pct 12.4 % [facility] Comment: Interpretive Data Percent cell count reference ranges are not reported, since discordance with absolute values may lead to misinterpretation of CBC data. Current Interpretive Data was last revised on 2017. Testing performed by: [facility], [address] [place] [phone] Monocyte pct 7.9 % [facility] Comment: Interpretive Data Percent cell count reference ranges are not reported, since discordance with absolute values may lead to misinterpretation of CBC data. Current Interpretive Data was last revised on 2017. Testing performed by: [facility], [address] [place] [phone] Eosinophil pct 3.9 % [facility] Comment: Interpretive Data Percent cell count reference ranges are not reported, since discordance with absolute values may lead to misinterpretation of CBC data. Current Interpretive Data was last revised on 2017. Testing performed by: [facility], [address] [place] [phone] Basophil pct 0.6 % [facility] Comment: Interpretive Data Percent cell count reference ranges are not reported, since discordance with absolute values may lead to misinterpretation of CBC data. Current Interpretive Data was last revised on 2017. Testing performed by: [facility], [address] [place] [phone] Blood 08/31/2024 8:12 AM CDT 08/31/2024 8:16 AM CDT Hermelindo Butler MD LAB BLOOD ORDER ELANA Final [facility] Department [place] [address] * (ABNORMAL) CBC with auto differential (08/31/2024 8:12 AM CDT) WBC 8.0 3.8 - 9.9 K/cumm Comment:Testing performed by : [facility], [address] [place] [address] Hgb 12.7(L) 13.0 - 17.5 g/dL [facility] Comment:Testing performed by : [facility], [address] [place] [address] Hct 37.8(L) 38.9 - 50.3 % [facility] Comment:Testing performed by : [facility], [address] [place] [address] Plt 176 150 - 400 K/cumm [facility] Comment:Testing performed by : [facility], [address] [place] [address] MPV 7.7 6.8 - 10.4 fL [facility] Comment:Testing performed by : [facility], [address] [place] [address] RBC 4.07(L) 4.30 - 5.80 M/cumm [facility] Comment:Testing performed by : [facility], [address] [place] [address] MCV 92.8 81.3 - 96.4 fL [facility] Comment:Testing performed by : [facility], [address] [place], [place] [phone] MCH 31.2 27.1 - 33.3 pg [facility] Comment:Testing performed by : [facility], [address] [place], [place] [id number] MCHC 33.6 32.3 - 35.7 g/dL MT SUAREZ Comment:Testing performed by : [facility], [address] [place], [place] [phone] RDW CV 16.1(H) 11.1 - 14.9 % MT [facility] Comment:Testing performed by : [facility], [address] [place], [place] [phone] NRBC abs 0.00 0.00 - 0.01 K/cumm MT [facility] Comment:Testing performed by : [facility], [address] [place], [place] [id number] Blood 08/31/2024 8:12 AM CDT 08/31/2024 8:16 AM CDT Hermelindo Butler MD LAB BLOOD ORDER ELANA Final Result Performing Organization Address City/[facility]/ZIP Co de Phone Number [facility] Department of [facility] [place] [phone] * Type and screen (08/31/2024 8:12 AM CDT) ABO Rh A Positive Yehuda, indirect Negative MT [facility] Comment:Patient has previous antibody history Blood 08/31/2024 8:12 AM CDT 08/31/2024 8:25 AM CDT Narrative MT SUAREZ - 08/31/2024 9:28 AM CDT Has the patient had Daratumumab or Isatuximab in the past 6 months?->Unknown Hermelindo Butler MD LAB BLOOD BANK TEST ORDERABLES Final Result MT [facility] One [facility] [place] [address] * Immunotyping, serum with interpretation (08/31/2024 8:12 AM CDT) Immunosubtraction Please see comment Comment: NO PARAPROTEIN DETECTED Reviewed and signed by Ivan Sims MD, PhD 09/01/2024 Blood 08/31/2024 8:12 AM CDT 08/31/2024 9:34 AM CDT us Hermelindo Butler MD LAB BLOOD ORDER ELANA Final Result MT SUAREZ [facility] Department [place] [address] * (ABNORMAL) eGFR (08/31/2024 8:12 AM CDT) Pathologist [facility] eGFR 45(L) >=60 mL/min/1. 73 m2 Comment: [...] ORDER ELANA Final Result MT SUAREZ [facility] Department [place] [address] * (ABNORMAL) Immunoglobulin free light chains (08/31/2024 8:12 AM CDT) Pathologist [facility] [place] Sapulpa/Lambda ratio [facility] See Comment 0.26 - 1.65 Comment: Unable to calculate exact result. Interpretive Data The Binding Site FreeLite assay procedure was used. Results from different manufacturers or methods may not be comparable. Serial testing should be performed using the same methods and instrumentation. Current Interpretive Data was last revised on 2023. Sapulpa free light chain [facility] <0.06(L) 0.33 - 1.94 mg/dL [facility] Comment: Interpretive Data The Binding Site FreeLite assay procedure was used. Results from different manufacturers or methods may not be comparable. Serial testing should be performed using the same methods and instrumentation. Current Interpretive Data was last revised on 2023. Lambda free light chain [facility] <0.14(L) 0.57 - 2.63 mg/dL [facility] Comment: Interpretive Data The Binding Site FreeLite assay procedure was used. Results from different manufacturers or methods may not be comparable. Serial testing should be performed using the same methods and instrumentation. Current Interpretive Data was last revised on 2023. Blood 08/31/2024 8:12 AM CDT 08/31/2024 9:34 AM CDT Hermelindo Butler MD LAB BLOOD ORDER ELANA Final Result Performing Organization Address City/[facility] Co de Phone Number MT SUAREZ [facility] Department [place] [address] * (ABNORMAL) aPTT (08/31/2024 8:12 AM CDT) Pathologist [facility] [place] aPTT 50(H) 28 - 38 sec Comment: Interpretive Data Heparin therapeutic range: 66.0 - 100.0 seconds. Range based on correlation with therapeutic heparin activity range of 0.3 - 0.7 Units/mL. Current interpretive data was last revised on 2023. Blood 08/31/2024 8:12 AM CDT 08/31/2024 8:41 AM CDT Hermelindo Butler MD LAB BLOOD ORDER ELANA Final Result Performing Organization Address [facility] de Phone Number [facility] [place] [address] * Protime-INR (08/31/2024 8:12 AM CDT) Pathologist [facility] [place] PT 11.4 9.7 - 13.0 sec INR 1.05 0.90 - 1.20 [facility] Comment: Interpretive data Oral anticoagulant therapeutic ranges: Venous thromboembolism prophylaxis or treatment: 2.0-3.0 CARDIOLOGY Standard range: 2.0-3.0 High-intensity range: 2.5-3.5 Refer to indication-specific guidelines for appropriate target ranges for prosthetic heart valve replacement. Current interpretive data was last revised on 2019. Blood 08/31/2024 8:12 AM CDT 08/31/2024 8:41 AM CDT Hermleindo Butler MD LAB BLOOD ORDER ELANA Final Result Performing Organization Address [facility] de Phone Number [facility] [place] [address] * (ABNORMAL) Protein electrophoresis with reflex, serum with interpretation (08/31/2024 8:12 AM CDT) Pathologist [facility] [place] Protein, sr 6.0(L) 6.2 - 8.2 g/dL Albumin 3.9 3.2 - 5.0 g/dL [facility] Alpha-1 globulin 0.4 0.2 - 0.4 g/dL [facility] Alpha-2 globulin 0.7 0.5 - 1.0 g/dL [facility] Beta-1 globulin 0.5 0.3 - 0.6 g/dL [facility] Beta-2 globulin 0.3 0.2 - 0.6 g/dL [facility] Gamma globulin 0.2(L) 0.5 - 1.7 g/dL [facility] SPEP interp Please see comment [facility] Comment: No apparent monoclonal peak Decreased gamma globulins Electrophoretic pattern appears similar to previous sample 08/24/2024 See immunotyping for further information Reviewed and signed by Ivan Sims MD, PhD 09/01/2024 Blood 08/31/2024 8:12 AM CDT 08/31/2024 9:34 AM CDT Hermelindo Butler MD LAB BLOOD ORDER ELANA Final Result Performing Organization Address City/[facility] Co de Phone Number [facility] Department [place] [address] * Magnesium (08/31/2024 8:12 AM CDT) Magnesium 1.8 1.4 - 2.5 mg/dL Blood 08/31/2024 8:12 AM CDT 08/31/2024 8:20 AM CDT Hermelindo Butler MD LAB BLOOD ORDER ELANA Final Result Performing Organization Address City/[facility] Co de Phone Number [facility] Department [place] [address] * Lactate dehydrogenase (LD) (08/31/2024 8:12 AM CDT) Lactate dehydrogenase (LDH) 155 100 - 250 Units/L Blood 08/31/2024 8:12 AM CDT 08/31/2024 8:20 AM CDT Hermelindo Butler MD LAB BLOOD ORDER ELANA Final Result Performing Organization Address City/[facility]/ZIP Co de Phone Number [facility] Department [place] [address] * Gamma GT (08/31/2024 8:12 AM CDT) Pathologist [facility] [place] GGT 27 10 - 50 Units/L Blood 08/31/2024 8:12 AM CDT 08/31/2024 8:20 AM CDT Hermelindo Butler MD LAB BLOOD ORDER ELANA Final Result [facility] [place] [address] * (ABNORMAL) IgA (08/31/2024 8:12 AM CDT) [facility] Immunoglobulin A <50(L) 70 - 400 mg/dL Blood 08/31/2024 8:12 AM CDT 08/31/2024 8:38 AM CDT Hermelindo Butler MD LAB BLOOD ORDER ELANA Final Result Performing Organization Address City/[facility] Co de Phone Number [facility] Department [place] [address] * (ABNORMAL) IgM (08/31/2024 8:12 AM CDT) [facility] Immunoglobulin M <25(L) 40 - 230 mg/dL Blood 08/31/2024 8:12 AM CDT 08/31/2024 8:38 AM CDT Hermelindo Butler MD LAB BLOOD ORDER ELANA Final Result Performing Organization Address City/[facility] Co de Phone Number [facility] [place] [address] * (ABNORMAL) IgG (08/31/2024 8:12 AM CDT) Immunoglobulin G <300(L) 700 - 1,600 mg/dL Blood 08/31/2024 8:12 AM CDT 08/31/2024 8:38 AM CDT Hermelindo Butler MD LAB BLOOD ORDER ELANA Final Result [facility] One [facility] Department [place] [address] * (ABNORMAL) Comprehensive metabolic panel (08/31/2024 8:12 AM CDT) Pathologist [facility] [place] Sodium 141 135 - 145 mmol/L Potassium, pl 4.0 3.3 - 4.9 mmol/L [facility] Chloride 103 97 - 110 mmol/L [facility] CO2 29 22 - 32 mmol/L [facility] Anion gap 9 2 - 15 mmol/L [facility] BUN 31(H) 6 - 25 mg/dL [facility] Creatinine 1.61(H) 0.80 - 1.30 mg/dL [facility] Glucose 114 70 - 199 mg/dL [facility] Comment: Interpretive Data Fasting glucose >/= 126 [...] 2022. Calcium 9.4 8.5 - 10.3 mg/dL [facility] Bilirubin, total 0.4 0.1 - 1.2 mg/dL [facility] Protein, pl 6.5 6.5 - 8.5 g/dL [facility] Albumin 4.1 3.5 - 5.0 g/dL [facility] Alk phos 65 40 - 130 Units/L [facility] ALT 16 7 - 55 Units/L [facility] AST 15 10 - 50 Units/L [facility] Blood 08/31/2024 8:12 AM CDT 08/31/2024 8:20 AM CDT us Hermelindo Butler MD LAB BLOOD ORDER ELANA Final Result [facility] [place] [address] * SCAN - LABS (08/30/2024) us Provider [...] Hargrove MD LAB BLOOD ORDERABLES Final Result [facility] Department [place] [address] * (ABNORMAL) Differential, auto (08/26/2024 12:25 AM CDT) Neutrophil abs 5.3 1.5 - 6.5 K/cumm Imm gran abs 0.0 0.0 - 0.1 K/cumm [facility] Lymphocyte abs 0.7(L) 0.8 - 3.3 K/cumm [facility] Monocyte abs 0.6 0.2 - 0.8 K/cumm [facility] Eosinophil abs 0.3 0.0 - 0.5 K/cumm [facility] Basophil abs 0.0 0.0 - 0.1 K/cumm [facility] Neutrophil pct 75.7 % [facility] Comment: Interpretive Data Percent cell count reference ranges are not reported, since discordance with absolute values may lead to misinterpretation of CBC data. Current Interpretive Data was last revised on 2017. Imm gran pct 0.4 % [facility] Comment: Interpretive Data Percent cell count reference ranges are not reported, since discordance with absolute values may lead to misinterpretation of CBC data. Current Interpretive Data was last revised on 2017. Lymphocyte pct 10.4 % [facility] Comment: Interpretive Data Percent cell count reference ranges are not reported, since discordance with absolute values may lead to misinterpretation of CBC data. Current Interpretive Data was last revised on 2017. Monocyte pct 9.0 % [facility] Comment: Interpretive Data Percent cell count reference ranges are not reported, since discordance with absolute values may lead to misinterpretation of CBC data. Current Interpretive Data was last revised on 2017. Eosinophil pct 4.4 % [facility] Comment: Interpretive Data Percent cell count reference ranges are not reported, since discordance with absolute values may lead to misinterpretation of CBC data. Current Interpretive Data was last revised on 2017. Basophil pct 0.1 % [facility] Comment: Interpretive Data Percent cell count reference ranges are not reported, since discordance with absolute values may lead to misinterpretation of CBC data. Current Interpretive Data was last revised on 2017. Blood 08/26/2024 12:2 5 AM CDT 08/26/2024 12:35 AM CDT Karlos Hargrove MD LAB BLOOD ORDERABLES Final Result Performing Organization Address [facility] Co de Phone Number [facility] Department [place] [address] * (ABNORMAL) CBC with auto differential (08/26/2024 12:25 AM CDT) [facility] WBC 7.0 3.8 - 9.9 K/cumm Hgb 11.8(L) 13.0 - 17.5 g/dL [facility] Hct 35.7(L) 38.9 - 50.3 % [facility] Plt 131(L) 150 - 400 K/cumm [facility] MPV 9.2 9.1 - 12.3 fL [facility] RBC 3.83(L) 4.30 - 5.80 M/cumm [facility] MCV 93.2 81.3 - 96.4 fL [facility] MCH 30.8 27.1 - 33.3 pg [facility] MCHC 33.1 32.3 - 35.7 g/dL [facility] RDW CV 15.4(H) 11.1 - 14.9 % [facility] RDW SD 51.7(H) 35.7 - 48.1 fL [facility] NRBC abs 0.00 0.00 - 0.01 K/cumm [facility] Blood 08/26/2024 12:2 5 AM CDT 08/26/2024 12:35 AM CDT Karlos Hargrove MD LAB BLOOD ORDERABLES Final Result Performing Organization Address City/[facility]/ZIP Co de Phone Number [facility] Department [place] [address] * Type and screen (08/26/2024 12:25 AM CDT) [facility] Yehuda, indirect Negative Comment:Patient has previous antibody history ABO Rh A Positive [facility] Blood 08/26/2024 12:2 5 AM CDT 08/26/2024 12:38 AM CDT Narrative [facility] - 08/26/2024 2:23 AM CDT Has the patient had Daratumumab or Isatuximab in the past 6 months?->Unknown Karlos Hargrove MD LAB BLOOD BANK TEST ORDERA BLES Final Result Performing Organization Address [facility] Co de Phone Number [facility] [place] [address] * (ABNORMAL) Uric acid (08/26/2024 12:25 AM CDT) Pathologist [facility] [place] Uric acid 8.6(H) 3.0 - 8.0 mg/dL Blood 08/26/2024 12:2 5 AM CDT 08/26/2024 12:35 AM CDT Narrative [facility] - 08/26/2024 1:10 AM CDT Friday and only. Morning draw. . Karlos Hargrove MD LAB BLOOD ORDERABLES Final Result Performing Organization Address [facility] Co de Phone Number [facility] [place] [address] * Phosphorus (08/26/2024 12:25 AM CDT) Pathologist [facility] Phosphorus, pl 3.6 2.3 - 4.5 mg/dL Blood 08/26/2024 12:2 5 AM CDT 08/26/2024 12:35 AM CDT Karlos Hargrove MD LAB BLOOD ORDERABLES Final Result Performing Organization Address [facility] Co de Phone Number [facility] [place] [address] * Magnesium (08/26/2024 12:25 AM CDT) [facility] Magnesium 1.7 1.4 - 2.5 mg/dL Blood 08/26/2024 12:2 5 AM CDT 08/26/2024 12:35 AM CDT Karlos Hargrove MD LAB BLOOD ORDERABLES Final Result Performing Organization Address City/[facility] Co de Phone Number [facility] Department [place] [address] * Lactate dehydrogenase (LD) (08/26/2024 12:25 AM CDT) [facility] Lactate dehydrogenase (LDH) 167 100 - 250 Units/L Blood 08/26/2024 12:2 5 AM CDT 08/26/2024 12:35 AM CDT Narrative [facility] - 08/26/2024 1:10 AM CDT Friday and only. Morning draw. Karlos Hargrove MD LAB BLOOD ORDERABLES Final Result Performing Organization Address [facility] Co de Phone Number [facility] [place] [address] * (ABNORMAL) Comprehensive metabolic panel (08/26/2024 12:25 AM CDT) [facility] Sodium 148(H) 135 - 145 mmol/L Potassium, pl 3.4 3.3 - 4.9 mmol/L [facility] Chloride 108 97 - 110 mmol/L [facility] CO2 28 22 - 32 mmol/L [facility] Anion gap 12 2 - 15 mmol/L [facility] BUN 35(H) 6 - 25 mg/dL [facility] Creatinine 2.27(H) 0.80 - 1.30 mg/dL [facility] Glucose 107 70 - 199 mg/dL [facility] Comment: Interpretive Data Fasting glucose >/= 126 [...] Calcium 8.9 8.5 - 10.3 mg/dL [facility] Bilirubin, total 0.6 0.1 - 1.2 mg/dL [facility] Protein, pl 5.9(L) 6.5 - 8.5 g/dL [facility] Albumin 3.7 3.5 - 5.0 g/dL [facility] Alk phos 60 40 - 130 Units/L [facility] ALT 15 7 - 55 Units/L [facility] AST 13 10 - 50 Units/L [facility] Blood 08/26/2024 12:2 5 AM CDT 08/26/2024 12:35 AM CDT Karlos Hargrove MD LAB BLOOD ORDERABLES Final Result Performing Organization Address City/State/[facility] Co de Phone Number MT SUAREZ [facility] Department [place] [address] * US Vein Duplex Lower Extremity Bilateral Complete (08/25/2024 9:30 AM CDT) Anatomical Region Laterality Modality Vascular Bilateral Ultrasound 08/25/2024 8:37 AM CDT Narrative 08/27/2024 11:10 AM CDT [employer] - Department of Vascular Surgery, Vascular Laboratory [address] [place] [id number] Lower Extremity Venous Ultrasound Report Patient Name: BUFFY VALLECarl : 1950 (73y 8m) Study Date: 08/25/2024 8:37:41 AM Gender: M Tech: Location: [id number] Ref Provider: OLGA KEITH Quality: Adequate Order Provider: OLGA KEITH PROCEDURES: Vascular Report: Venous Duplex imaging was performed bilaterally in the lower extremities. The common femoral, femoral, popliteal, posterior tibial, peroneal veins were evaluated for patency, spontaneity and phasicity with Doppler, compression and augmentation maneuvers. Great saphenous vein proximal at the junction was evaluated with compression maneuvers. INDICATIONS: Localized edema. FINDINGS: Performing Video Intern: Farzana Owens RVT. Bilateral: Venous Doppler signals [...] above. Electronically Signed By: Cesar Cabello MD [facility] [phone] 08/27/2024 10:10:26 AM CDT Procedure Note Cesar Cabello MD - 08/27/2024 [facility] - Department of Vascular Surgery,Vascular Laboratory [address] [place] [address] Lower Extremity Venous Ultrasound Report Patient Name: BUFFY VALLE B : 1950 (73y 8m) Study Date: 08/25/2024 8:37:41 AM Gender: M Tech: Location: [id number] Ref Provider: OLGA KEITH Quality: Adequate Order Provider: OLGA KEITH PROCEDURES: Vascular Report: Venous Duplex imaging was performed bilaterally in the lower extremities.The common femoral, femoral, popliteal, posterior tibial, peroneal veins wereevaluated for patency, spontaneity and phasicity with Doppler, compression and augmentationmaneuvers. Great saphenous vein proximal at the junction was evaluated with compressionmaneuvers. INDICATIONS: Localized edema. FINDINGS: Performing Video Intern: Farzana Owens RVT. Bilateral: Venous Doppler signals [...] above. Electronically Signed By: Cesar Cabello MD [facility] [phone] 08/27/2024 10:10:26 AM CDT Olga Keith MD [facility] US PROCEDURES Final Result * (ABNORMAL) eGFR [...] Hargrove MD LAB BLOOD ORDERABLES Final Result [facility] Department [place] [address] * (ABNORMAL) Differential, auto (08/25/2024 12:34 AM CDT) Neutrophil abs 5.2 1.5 - 6.5 K/cumm Imm gran abs 0.1 0.0 - 0.1 K/cumm [facility] Lymphocyte abs 0.5(L) 0.8 - 3.3 K/cumm [facility] Monocyte abs 0.5 0.2 - 0.8 K/cumm [facility] Eosinophil abs 0.4 0.0 - 0.5 K/cumm [facility] Basophil abs 0.0 0.0 - 0.1 K/cumm [facility] Neutrophil pct 77.6 % [facility] Comment: Interpretive Data Percent cell count reference ranges are not reported, since discordance with absolute values may lead to misinterpretation of CBC data. Current Interpretive Data was last revised on 2017. Imm gran pct 0.7 % [facility] Comment: Interpretive Data Percent cell count reference ranges are not reported, since discordance with absolute values may lead to misinterpretation of CBC data. Current Interpretive Data was last revised on 2017. Lymphocyte pct 7.9 % [facility] Comment: Interpretive Data Percent cell count reference ranges are not reported, since discordance with absolute values may lead to misinterpretation of CBC data. Current Interpretive Data was last revised on 2017. Monocyte pct 7.5 % [facility] Comment: Interpretive Data Percent cell count reference ranges are not reported, since discordance with absolute values may lead to misinterpretation of CBC data. Current Interpretive Data was last revised on 2017. Eosinophil pct 6.0 % [facility] Comment: Interpretive Data Percent cell count reference ranges are not reported, since discordance with absolute values may lead to misinterpretation of CBC data. Current Interpretive Data was last revised on 2017. Basophil pct 0.3 % [facility] Comment: Interpretive Data Percent cell count reference ranges are not reported, since discordance with absolute values may lead to misinterpretation of CBC data. Current Interpretive Data was last revised on 2017. Blood 08/25/2024 12:3 4 AM CDT 08/25/2024 12:57 AM CDT Karlos Hargrove MD LAB BLOOD ORDERABLES Final Result [facility] [place] [address] * (ABNORMAL) CBC with auto differential (08/25/2024 12:34 AM CDT) WBC 6.7 3.8 - 9.9 K/cumm Hgb 11.2(L) 13.0 - 17.5 g/dL [facility] Hct 33.3(L) 38.9 - 50.3 % [facility] Plt 136(L) 150 - 400 K/cumm [facility] MPV 9.5 9.1 - 12.3 fL [facility] RBC 3.57(L) 4.30 - 5.80 M/cumm [facility] MCV 93.3 81.3 - 96.4 fL [facility] MCH 31.4 27.1 - 33.3 pg [facility] MCHC 33.6 32.3 - 35.7 g/dL [facility] RDW CV 15.3(H) 11.1 - 14.9 % [facility] RDW SD 51.0(H) 35.7 - 48.1 fL [facility] NRBC abs 0.00 0.00 - 0.01 K/cumm [facility] Blood 08/25/2024 12:3 4 AM CDT 08/25/2024 12:57 AM CDT Karlos Hargrove MD LAB BLOOD ORDERABLES Final Result Performing Organization Address City/[facility] Co de Phone Number [facility] [place] [address] * Phosphorus (08/25/2024 12:34 AM CDT) [facility] Phosphorus, pl 3.7 2.3 - 4.5 mg/dL Blood 08/25/2024 12:3 4 AM CDT 08/25/2024 12:55 AM CDT Karols Hargrove MD LAB BLOOD ORDERABLES Final Result Performing Organization Address [facility] Co de Phone Number [facility] [place] [address] * Magnesium (08/25/2024 12:34 AM CDT) [facility] Magnesium 1.9 1.4 - 2.5 mg/dL Blood 08/25/2024 12:3 4 AM CDT 08/25/2024 12:55 AM CDT Karlos Hargrove MD LAB BLOOD ORDERABLES Final Result Performing Organization Address [facility] Co de Phone Number [facility] [place] [address] * (ABNORMAL) Comprehensive metabolic panel (08/25/2024 12:34 AM CDT) [facility] Sodium 147(H) 135 - 145 mmol/L Potassium, pl 3.2(L) 3.3 - 4.9 mmol/L [facility] Chloride 109 97 - 110 mmol/L [facility] CO2 26 22 - 32 mmol/L [facility] Anion gap 12 2 - 15 mmol/L [facility] BUN 47(H) 6 - 25 mg/dL [facility] Creatinine 2.74(H) 0.80 - 1.30 mg/dL [facility] Glucose 154 70 - 199 mg/dL [facility] Comment: Interpretive Data Fasting glucose >/= 126 [...] 2022. Calcium 8.4(L) 8.5 - 10.3 mg/dL [facility] Bilirubin, total 0.4 0.1 - 1.2 mg/dL [facility] Protein, pl 5.9(L) 6.5 - 8.5 g/dL [facility] Albumin 3.9 3.5 - 5.0 g/dL [facility] Alk phos 61 40 - 130 Units/L [facility] ALT 18 7 - 55 Units/L [facility] AST 17 10 - 50 Units/L [facility] Blood 08/25/2024 12:3 4 AM CDT 08/25/2024 12:55 AM CDT us Karlos Hargrove MD LAB BLOOD ORDERABLES Final Result Performing Organization Address City/[facility]/ZIP Co de Phone Number [facility] Department [place] [address] * Sodium, urine, random (08/24/2024 5:16 PM CDT) Sodium, ur 44 mmol/L Comment: Interpretive Data No reference range established. Current interpretive data was last revised 2018. Urine 08/24/2024 5:16 PM CDT 08/24/2024 5:31 PM CDT us Olga Keith MD LAB URINE ORDERABLES Final Resul t [facility] [place] [address] * CT Abdomen Pelvis WO Contrast (08/24/2024 [...] Basophil abs 0.0 0.0 - 0.1 K/cumm [facility] B[facility] Neutrophil pct 73.7 % [facility] Comment: Interpretive Data Percent cell count reference ranges are not reported, since discordance with absolute values may lead to misinterpretation of CBC data. Current Interpretive Data was last revised on 2017. Imm gran pct 0.6 % [facility] Comment: Interpretive Data Percent cell count reference ranges are not reported, since discordance with absolute values may lead to misinterpretation of CBC data. Current Interpretive Data was last revised on 2017. Lymphocyte pct 10.0 % [facility] Comment: Interpretive Data Percent cell count reference ranges are not reported, since discordance with absolute values may lead to misinterpretation of CBC data. Current Interpretive Data was last revised on 2017. Monocyte pct 8.3 % [facility] Comment: Interpretive Data Percent cell count reference ranges are not reported, since discordance with absolute values may lead to misinterpretation of CBC data. Current Interpretive Data was last revised on 2017. Eosinophil pct 7.1 % [facility] Comment: Interpretive Data Percent cell count reference ranges are not reported, since discordance with absolute values may lead to misinterpretation of CBC data. Current Interpretive Data was last revised on 2017. Basophil pct 0.3 % [facility] Comment: Interpretive Data Percent cell count reference ranges are not reported, since discordance with absolute values may lead to misinterpretation of CBC data. Current Interpretive Data was last revised on 2017. Blood 08/24/2024 2:30 AM CDT 08/24/2024 1:28 AM CDT Karlos Hargrove MD LAB BLOOD ORDERABLES Final Result Performing Organization Address [facility] Co de Phone Number [facility] Department [place] [address] * (ABNORMAL) CBC with auto differential (08/24/2024 2:30 AM CDT) Pathologist [facility] [place] WBC 6.6 3.8 - 9.9 K/cumm Hgb 10.9(L) 13.0 - 17.5 g/dL [facility] Hct 33.1(L) 38.9 - 50.3 % [facility] Plt 130(L) 150 - 400 K/cumm [facility] MPV 10.0 9.1 - 12.3 fL [facility] RBC 3.50(L) 4.30 - 5.80 M/cumm [facility] MCV 94.6 81.3 - 96.4 fL [facility] MCH 31.1 27.1 - 33.3 pg [facility] MCHC 32.9 32.3 - 35.7 g/dL [facility] RDW CV 15.3(H) 11.1 - 14.9 % [facility] RDW SD 51.8(H) 35.7 - 48.1 fL [facility] NRBC abs 0.00 0.00 - 0.01 K/cumm [facility] Blood 08/24/2024 2:30 AM CDT 08/24/2024 1:28 AM CDT Karlos Hargrove MD LAB BLOOD ORDERABLES Final Result Performing Organization Address City/[facility]/ZIP Co de Phone Number [facility] Department [place] [address] * (ABNORMAL) eGFR (08/24/2024 1:12 AM CDT) Pathologist [facility] [place] eGFR 20(L) >=60 mL/min/1. 73 m2 Comment: [...] BLOOD ORDERABLES Final Result Performing Organization Address City/[facility] Co de Phone Number MT [facility] [place] [address] * aPTT (08/24/2024 1:12 AM CDT) aPTT [...] BLOOD ORDERABLES Final Result Performing Organization Address City/[facility]/ZIP Co de Phone Number [facility] [place] [address] * Protime-INR (08/24/2024 1:12 AM CDT) Pathologist [facility] [place] PT 11.7 9.7 - 13.0 sec INR 1.08 0.90 - 1.20 [facility] Comment: Interpretive data Oral anticoagulant therapeutic ranges: Venous thromboembolism prophylaxis or treatment: 2.0-3.0 CARDIOLOGY Standard range: 2.0-3.0 High-intensity range: 2.5-3.5 Refer to indication-specific guidelines for appropriate target ranges for prosthetic heart valve replacement. Current interpretive data was last revised on 2019. Blood 08/24/2024 1:12 AM CDT 08/24/2024 1:53 AM CDT Karlos Hargrove MD LAB BLOOD ORDERABLES Final Result Performing Organization Address City/[facility] Co de Phone Number [facility] [place] [address] * Type and screen (08/24/2024 1:12 AM CDT) Pathologist [facility] [place] Yehuda, indirect Negative Comment:Patient has previous antibody history ABO Rh A Positive [facility] Blood 08/24/2024 1:12 AM CDT 08/24/2024 1:36 AM CDT Narrative [facility] - 08/24/2024 2:36 AM CDT Has the patient had Daratumumab or Isatuximab in the past 6 months?->Unknown Karlos Hargrove MD LAB BLOOD BANK TEST [place] [address] * (ABNORMAL) Uric acid (08/24/2024 1:12 AM CDT) Pathologist [facility] [place] Uric acid 9.5(H) 3.0 - 8.0 mg/dL Blood 08/24/2024 1:12 AM CDT 08/24/2024 1:35 AM CDT Narrative [facility] - 08/24/2024 2:47 AM CDT Friday and only. Morning draw. . us Karlos Hargrove MD LAB BLOOD ORDERABLES Final Result Performing Organization Address City/[facility] Co de Phone Number [facility] [place] [address] * Phosphorus (08/24/2024 1:12 AM CDT) Phosphorus, pl 4.5 2.3 - 4.5 mg/dL Blood 08/24/2024 1:12 AM CDT 08/24/2024 1:35 AM CDT us Karlos Hargrove MD LAB BLOOD ORDERABLES Final Result Performing Organization Address City/[facility] Co de Phone Number [facility] [place] [address] * Magnesium (08/24/2024 1:12 AM CDT) Magnesium 2.0 1.4 - 2.5 mg/dL Blood 08/24/2024 1:12 AM CDT 08/24/2024 1:35 AM CDT us Karlos Hargrove MD LAB BLOOD ORDERABLES Final Result Performing Organization Address City/[facility] [place] [address] * Lactate dehydrogenase (LD) (08/24/2024 1:12 AM CDT) Lactate dehydrogenase (LDH) 226 100 - 250 Units/L Blood 08/24/2024 1:12 AM CDT 08/24/2024 1:35 AM CDT Narrative [facility] - 08/24/2024 2:47 AM CDT Friday and only. Morning draw. Karlos Hargrove MD LAB BLOOD ORDERABLES Final Result [facility] Department [place] [address] * (ABNORMAL) Comprehensive metabolic panel (08/24/2024 1:12 AM CDT) Sodium 148(H) 135 - 145 mmol/L Potassium, pl 3.6 3.3 - 4.9 mmol/L [facility] Chloride 111(H) 97 - 110 mmol/L [facility] CO2 25 22 - 32 mmol/L [facility] Anion gap 12 2 - 15 mmol/L [facility] BUN 56(H) 6 - 25 mg/dL [facility] Creatinine 3.16(H) 0.80 - 1.30 mg/dL [facility] Glucose 102 70 - 199 mg/dL [facility] Comment: Interpretive Data Fasting glucose >/= 126 [...] 2022. Calcium 8.5 8.5 - 10.3 mg/dL [facility] Bilirubin, total 0.4 0.1 - 1.2 mg/dL [facility] Protein, pl 5.7(L) 6.5 - 8.5 g/dL [facility] Albumin 3.6 3.5 - 5.0 g/dL [facility] Alk phos 62 40 - 130 Units/L [facility] ALT 16 7 - 55 Units/L [facility] AST 11 10 - 50 Units/L [facility] Blood 08/24/2024 1:12 AM CDT 08/24/2024 1:35 AM CDT Karlos Hargrove MD LAB BLOOD ORDERABLES Final Result [facility] Department [place] [address] * US Kidney Complete (08/23/2024 8:12 PM [...] Straw Yellow Clarity, ur Clear Clear [facility] Specific gravity, ur 1.011 1.003 - 1.030 [facility] pH, urine 5.5 [facility] Comment: Interpretive Data U rine pH is affected by diet, medications, systemic acid-base disturbances, and renal tubular function. pH may affect urinary stone formation. For example, urine pH below 6.0 may help reduce the tendency for calcium phosphate stones and pH greater than 6.0 may reduce the tendency for uric acid stone formation. Source: [facility] Current Interpretive Data was last revised on 2017 Protein, ur ql Negative Negative [facility] Glucose, ur ql Negative Negative [facility] Ketones, ur Negative Negative [facility] Bilirubin, ur Negative Negative [facility] Blood, ur 2+(A) Negative [facility] Urobilinogen, ur <2.0 <2.0 mg/dL [facility] Nitrite, ur Negative Negative [facility] Leukocyte esterase, ur Trace(A) Negative [facility] UA reflex comment Reflex to microscopic UA will be performed. [facility] Urine 08/23/2024 7:01 PM CDT 08/23/2024 7:15 PM CDT Kinga Jones NP LAB URINE ORDERABLES Angeles nicole Result [facility] Department [place] [address] * Protein / creatinine ratio, urine, random (08/23/2024 7:01 PM CDT) Protein, ur, quant 6.4 mg/dL Comment: Interpretive Data No reference range established. Current interpretive data was last revised 2018. Creatinine Ur 74.0 mg/dL [facility] Comment: Interpretive Data No reference range established. Current interpretive data was last revised 2018. Protein/creatinin e ratio 86.5 0.0 - 180.0 mg/g CR [facility] Urine 08/23/2024 7:01 PM CDT 08/23/2024 7:28 PM CDT Kinga Jones DRYWALLER LAB URINE ORDERABLES Angeles l Result Performing Organization Address [facility] Co de Phone Number [facility] Department [place] [address] * (ABNORMAL) Urinalysis, microscopic only (08/23/2024 7:01 PM CDT) Pathologist [facility] [place] WBC, ur 0-5 0 - 5 /HPF RBC, ur 6-10(A) 0 - 2 /HPF [facility] Urine 08/23/2024 7:01 PM CDT 08/23/2024 7:15 PM CDT Kinga Jones DRYWALLER LAB URINE ORDERABLES Angeles l Result Performing Organization Address City/[facility]/ZIP Co de Phone Number [facility] Department [place] [address] * Urine culture Urine, clean voided (08/23/2024 7:01 PM CDT) Pathologist [facility] [place] Report Final Report: Less than 100,000 colonies/mL (clinically insignificant growth based on current clinical standards) Organism (CLINICALLY INSIGNIFICANT GROWTH [facility] Urine, clean voided 08/23/2024 7:01 PM CDT 08/23/2024 8:52 PM CDT Narrative [facility] - 08/25/2024 8:02 AM CDT Indications for Culture:->Other (specify) Other Indication:->elevated creatinine Specimen received in a sterile container. Testing performed by [facility] ([phone]) Kinga Jones NP LAB MICROBIOLOGY - GENERA L ORDERABLES Final Result Performing Organization Address City/[facility]/ZIP Co de Phone Number [facility] Department [place] [address] * Immunotyping, serum with interpretation (08/23/2024 6:04 PM CDT) Pathologist [facility] [place] Immunosubtraction Please see comment Comment: NO PARAPROTEIN DETECTED Reviewed and signed by Fernando Nunez MD, PhD 08/24/2024 Blood 08/23/2024 6:04 PM CDT 08/23/2024 6:13 PM CDT Hermelindo Butler MD LAB BLOOD ORDER ELANA Final Result Performing Organization Address [facility] Co de Phone Number [facility] Department [place] [address] * (ABNORMAL) eGFR (08/23/2024 6:04 PM CDT) Pathologist [facility] [place] eGFR 19(L) >=60 mL/min/1. 73 m2 Comment: [...] MD LAB BLOOD ORDER ELANA Final Result [facility] Department [place] [address] * (ABNORMAL) Differential, auto (08/23/2024 6:04 PM [...] K/cumm [facility] BJ Neutrophil pct 77.0 % [facility] Comment: Interpretive Data Percent cell count reference ranges are not reported, since discordance with absolute values may lead to misinterpretation of CBC data. Current Interpretive Data was last revised on 2017. Imm gran pct 0.5 % [facility] Comment: Interpretive Data Percent cell count reference ranges are not reported, since discordance with absolute values may lead to misinterpretation of CBC data. Current Interpretive Data was last revised on 2017. Lymphocyte pct 8.3 % [facility] Comment: Interpretive Data Percent cell count reference ranges are not reported, since discordance with absolute values may lead to misinterpretation of CBC data. Current Interpretive Data was last revised on 2017. Monocyte pct 7.3 % [facility] Comment: Interpretive Data Percent cell count reference [...] MD LAB BLOOD ORDER ELANA Final Result [facility] Department [place] [address] * (ABNORMAL) Immunoglobulin free light chains (08/23/2024 6:04 PM CDT) [place]/Lambda ratio [facility] <0.40 0.26 - 1.65 Comment: Interpretive Data The Binding Site FreeLite assay procedure was used. Results from different manufacturers or methods may not be comparable. Serial testing should be performed using the same methods and instrumentation. Current Interpretive Data was last revised on 2023. [place] free light chain BJ[facility] <0.06(L) 0.33 - 1.94 mg/dL [place] [facility] Comment: Interpretive Data The Binding Site FreeLite assay procedure was used. Results from different manufacturers or methods may not be comparable. Serial testing should be performed using the same methods and instrumentation. Current Interpretive Data was last revised on 2023. Lambda free light chain BJ[facility] 0.15(L) 0.57 - 2.63 mg/dL [facility] Comment: Interpretive Data The Binding Site FreeLite assay procedure was used. Results from different manufacturers or methods may not be comparable. Serial testing should be performed using the same methods and instrumentation. Current Interpretive Data was last revised on 2023. Blood 08/23/2024 6:04 PM CDT 08/23/2024 6:12 PM CDT Hermelindo Butler MD LAB BLOOD ORDER ELANA Final Result Performing Organization Address City/[facility] Co de Phone Number [facility] Department [place] [address] * (ABNORMAL) CBC with auto differential (08/23/2024 6:04 PM CDT) WBC 8.5 3.8 - 9.9 K/cumm Hgb 11.8(L) 13.0 - 17.5 g/dL [facility] Hct 35.6(L) 38.9 - 50.3 % [facility] Plt 131(L) 150 - 400 K/cumm [facility] MPV 9.8 9.1 - 12.3 fL [facility] RBC 3.78(L) 4.30 - 5.80 M/cumm [facility] MCV 94.2 81.3 - 96.4 fL [facility] MCH 31.2 27.1 - 33.3 pg [facility] MCHC 33.1 32.3 - 35.7 g/dL [facility] RDW CV 15.2(H) 11.1 - 14.9 % [facility] RDW SD 51.2(H) 35.7 - 48.1 fL [facility] NRBC abs 0.00 0.00 - 0.01 K/cumm [facility] Blood 08/23/2024 6:04 PM CDT 08/23/2024 6:12 PM CDT Hermelindo Butler MD LAB BLOOD ORDER ELANA Final Result Performing Organization Address City/[facility]/ZIP Co de Phone Number [facility] Department [place] [address] * (ABNORMAL) Uric acid (08/23/2024 6:04 PM CDT) Pathologist [facility] [place] Uric acid 9.5(H) 3.0 - 8.0 mg/dL Blood 08/23/2024 6:04 PM CDT 08/23/2024 6:13 PM CDT Hermelindo Butler MD LAB BLOOD ORDER ELANA Final Result [facility] Department [place] [address] * (ABNORMAL) Protein electrophoresis with reflex, serum with interpretation (08/23/2024 6:04 PM CDT) [facility] Protein, sr 5.9(L) 6.2 - 8.2 g/dL Albumin 3.9 3.2 - 5.0 g/dL [facility] Alpha-1 globulin 0.4 0.2 - 0.4 g/dL [facility] Alpha-2 globulin 0.7 0.5 - 1.0 g/dL [facility] Beta-1 globulin 0.4 0.3 - 0.6 g/dL [facility] Beta-2 globulin 0.3 0.2 - 0.6 g/dL [facility] Gamma globulin 0.2(L) 0.5 - 1.7 g/dL [facility] SPEP interp Please see comment [facility] Comment: No apparent monoclonal peak Decreased gamma globulins Electrophoretic pattern appears similar to previous sample 08/04/24 See immunotyping for further information Reviewed and signed by Fernando Nunez MD, PhD 08/24/2024 Blood 08/23/2024 6:04 PM CDT 08/23/2024 6:13 PM CDT Hermelindo Butler MD LAB BLOOD ORDER ELANA Final Result [facility] Department [place] [address] * (ABNORMAL) Phosphorus (08/23/2024 6:04 PM CDT) [facility] Phosphorus, pl 4.7(H) 2.3 - 4.5 mg/dL Blood 08/23/2024 6:04 PM CDT 08/23/2024 6:13 PM CDT Hermelindo Butler MD LAB BLOOD ORDER ELANA Final Result [facility] [place] [address] * Magnesium (08/23/2024 6:04 PM CDT) [facility] Magnesium 1.9 1.4 - 2.5 mg/dL Blood 08/23/2024 6:04 PM CDT 08/23/2024 6:13 PM CDT Hermelindo Butler MD LAB BLOOD ORDER ELANA Final Result Performing Organization Address City/[facility] Co de Phone Number [facility] Department [place] [address] * Lactate dehydrogenase (LD) (08/23/2024 6:04 PM CDT) [facility] Lactate dehydrogenase (LDH) 198 100 - 250 Units/L Blood 08/23/2024 6:04 PM CDT 08/23/2024 6:13 PM CDT Hermelindo Butler MD LAB BLOOD ORDER ELANA Final Result Performing Organization Address City/[facility] Co de Phone Number [facility] [place] [address] * (ABNORMAL) IgA (08/23/2024 6:04 PM CDT) [facility] Immunoglobulin A <50(L) 70 - 400 mg/dL Blood 08/23/2024 6:04 PM CDT 08/23/2024 6:13 PM CDT Hermelindo Butler MD LAB BLOOD ORDER ELANA Final Result Performing Organization Address [facility] Co de Phone Number [facility] [place] [address] * (ABNORMAL) IgM (08/23/2024 6:04 PM CDT) [facility] Immunoglobulin M <25(L) 40 - 230 mg/dL Blood 08/23/2024 6:04 PM CDT 08/23/2024 6:13 PM CDT Hermelindo Butler MD LAB BLOOD ORDER ELANA Final Result Performing Organization Address [facility] de Phone Number [facility] [place] [address] * (ABNORMAL) IgG (08/23/2024 6:04 PM CDT) [facility] Immunoglobulin G <300(L) 700 - 1,600 mg/dL Blood 08/23/2024 6:04 PM CDT 08/23/2024 6:13 PM CDT Hermelindo Butler MD LAB BLOOD ORDER ELANA Final Result Performing Organization Address [facility] [place] [address] * (ABNORMAL) Comprehensive metabolic panel (08/23/2024 6:04 PM CDT) [facility] Sodium 146(H) 135 - 145 mmol/L Potassium, pl 3.8 3.3 - 4.9 mmol/L [facility] Chloride 107 97 - 110 mmol/L [facility] CO2 26 22 - 32 mmol/L [facility] Anion gap 13 2 - 15 mmol/L [facility] BUN 58(H) 6 - 25 mg/dL [facility] Creatinine 3.37(H) 0.80 - 1.30 mg/dL [facility] Glucose 89 70 - 199 mg/dL [facility] Comment: Interpretive Data Fasting glucose >/= 126 [...] 2022. Calcium 8.9 8.5 - 10.3 mg/dL [facility] Bilirubin, total 0.4 0.1 - 1.2 mg/dL [facility] Protein, pl 6.2(L) 6.5 - 8.5 g/dL [facility] Albumin 4.0 3.5 - 5.0 g/dL [facility] Alk phos 68 40 - 130 Units/L [facility] ALT 16 7 - 55 Units/L [facility] AST 12 10 - 50 Units/L [facility] Blood 08/23/2024 6:04 PM CDT 08/23/2024 6:13 PM CDT Hermelindo Butler MD LAB BLOOD ORDER ELANA Final Result [facility] [place] [address] * SCAN - LABS (08/20/2024) us Provider Scanning Final Result * SCAN - LABS (08/10/2024) us Provider Scanning Final Result * US Kidney Complete (08/06/2024 2:42 PM SECRETARY OFFICE CLERK) Anatomical Region Laterality Modality Kidney N/A Ultrasound 08/06/2024 3:27 PM SECRETARY OFFICE CLERK Impressions 08/06/2024 3:27 PM SECRETARY OFFICE CLERK 1. Mild nephromegaly with mild to moderate hydronephrosis bilaterally. 2. Incomplete bladder emptying with post void bladder residual of 397 mL. Electronically signed by: Dylan Tinajero M.D. Narrative 08/06/2024 3:27 PM SECRETARY OFFICE CLERK EXAMINATION: COMPLETE RENAL SONOGRAM HISTORY: Rising creatinine. [...] by: Dylan Tinajero M.D. Hermelindo Butler MD [facility] US PROCEDUR ES Final Result * (ABNORMAL) Urinalysis reflex to microscopic (08/06/2024 9:19 AM SECRETARY OFFICE CLERK) Color, ur Straw Yellow Clarity, ur Clear Clear [facility] Specific gravity, ur 1.013 1.003 - 1.030 [facility] pH, urine 5.5 [facility] Comment: Interpretive Data U rine pH is affected by diet, medications, systemic acid-base disturbances, and renal tubular function. pH may affect urinary stone formation. For example, urine pH below 6.0 may help reduce the tendency for calcium phosphate stones and pH greater than 6.0 may reduce the tendency for uric acid stone formation. Source: [facility] Current Interpretive Data was last revised on 2017 Protein, ur ql Negative Negative [facility] Glucose, ur ql Negative Negative [facility] Ketones, ur Negative Negative [facility] Bilirubin, ur Negative Negative [facility] Blood, ur 3+(A) Negative [facility] Urobilinogen, ur <2.0 <2.0 mg/dL [facility] Nitrite, ur Negative Negative [facility] Leukocyte esterase, ur Trace(A) [facility] UA reflex comment Reflex to microscopic UA will be performed. [facility] Urine 08/06/2024 9:19 AM SECRETARY OFFICE CLERK 08/06/2024 9:19 AM SECRETARY OFFICE CLERK Lyndsey Fagan NP LAB URINE ORDERABLES Angeles nicole Result [facility] [place] [address] * Protein / creatinine ratio, urine, random (08/06/2024 9:19 AM SECRETARY OFFICE CLERK) Pathologist [facility] [place] Protein, ur, quant 7.9 mg/dL Comment: Interpretive Data No reference range established. Current interpretive data was last revised 2018. Creatinine Ur 77.4 mg/dL [facility] Comment: Interpretive Data No reference range established. Current interpretive data was last revised 2018. Protein/creatinin e ratio 102.1 0.0 - 180.0 mg/g CR [facility] Urine 08/06/2024 9:19 AM SECRETARY OFFICE CLERK 08/06/2024 9:41 AM SECRETARY OFFICE CLERK Lyndsey Fagan DRYWALLER LAB URINE ORDERABLES Angeles l Result Performing Organization Address [facility] Co de Phone Number [facility] [place] [address] * (ABNORMAL) Urinalysis, microscopic only (08/06/2024 9:19 AM SECRETARY OFFICE CLERK) WBC, ur 6-10(A) 0 - 5 /HPF RBC, ur 21-50(A) 0 - 2 /HPF [facility] Bacteria, ur Trace(A) [facility] Mucous, ur Present(A) [facility] Urine 08/06/2024 9:19 AM SECRETARY OFFICE CLERK 08/06/2024 9:19 AM SECRETARY OFFICE CLERK Lyndsey Fagan LAB URINE ORDERABLES Angeles l Result Performing Organization Address [facility] de Phone Number [facility] Department [place] [address] * (ABNORMAL) eGFR (08/06/2024 7:43 AM SECRETARY OFFICE CLERK) Pathologist [facility] [place] eGFR 31(L) >=60 mL/min/1. 73 m2 Comment: [...] last reviewed 2021. Blood 08/06/2024 7:43 AM SECRETARY OFFICE CLERK 08/06/2024 7:52 AM SECRETARY OFFICE CLERK Hermelindo Butler MD LAB BLOOD ORDER ELANA Final Result [facility] Department [place] [address] * (ABNORMAL) Differential, auto (08/06/2024 7:43 AM SECRETARY OFFICE CLERK) Neutrophil abs 5.4 1.5 - 6.5 K/cumm Comment:Testing performed by : [facility], [address] [place] [phone] Lymphocyte abs 0.8 0.8 - 3.3 K/cumm CERNER [facility] Comment:Testing performed by : [facility], [address] [place] [phone] Monocyte abs 0.5 0.2 - 0.8 K/cumm CERNER BJ Comment:Testing performed by : [facility], [address] [place] [phone] Eosinophil abs 0.7(H) 0.0 - 0.5 K/cumm CERNER BJ Comment:Testing performed by : [facility], [address] [place] [phone] Basophil abs 0.0 0.0 - 0.1 K/cumm CERNER BJ Comment:Testing performed by : [facility], [address] [place] [phone] Neutrophil pct 72.4 % CERNER BJ Comment: Interpretive Data Percent cell count reference ranges are not reported, since discordance with absolute values may lead to misinterpretation of CBC data. Current Interpretive Data was last revised on 2017. Testing performed by: [facility], [address] [place] [phone] Lymphocyte pct 10.4 % CERNER BJ Comment: Interpretive Data Percent cell count reference ranges are not reported, since discordance with absolute values may lead to misinterpretation of CBC data. Current Interpretive Data was last revised on 2017. Testing performed by: [facility], [address] [place] [phone] Monocyte pct 7.3 % [facility] Comment: Interpretive Data Percent cell count reference ranges are not reported, since discordance with absolute values may lead to misinterpretation of CBC data. Current Interpretive Data was last revised on 2017. Testing performed by: [facility], [address] [place] [phone] Eosinophil pct 9.4 % [facility] Comment: Interpretive Data Percent cell count reference ranges are not reported, since discordance with absolute values may lead to misinterpretation of CBC data. Current Interpretive Data was last revised on 2017. Testing performed by: [facility], [address] [place] [phone] Basophil pct 0.5 % [facility] Comment: Interpretive Data Percent cell count reference ranges are not reported, since discordance with absolute values may lead to misinterpretation of CBC data. Current Interpretive Data was last revised on 2017. Testing performed by: [facility], [address] [place] [phone] Blood 08/06/2024 7:43 AM SECRETARY OFFICE CLERK 08/06/2024 7:51 AM SECRETARY OFFICE CLERK Hermelindo Butler MD LAB BLOOD ORDER ELANA Final Result [facility] Department [place] [address] * (ABNORMAL) CBC with auto differential (08/06/2024 7:43 AM SECRETARY OFFICE CLERK) WBC 7.5 3.8 - 9.9 K/cumm Comment:Testing performed by : [facility], [address] [place] [phone] Hgb 13.7 13.0 - 17.5 g/dL [facility] Comment:Testing performed by : [facility], [address] [place] [address] Hct 40.6 38.9 - 50.3 % CERNER BJ Comment:Testing performed by : [facility], [address] [place], [place] [phone] Plt 169 150 - 400 K/cumm CERNER BJ Comment:Testing performed by : [facility], [address] [place], [place] [phone] MPV 7.5 6.8 - 10.4 fL CERNER BJ Comment:Testing performed by : [facility], [address] [place], [place] [phone] RBC 4.37 4.30 - 5.80 M/cumm CERNER BJ Comment:Testing performed by : [facility], [address] [place], [place] [phone] MCV 92.7 81.3 - 96.4 fL CERNER BJ Comment:Testing performed by : [facility], [address] [place], [place] [phone] MCH 31.3 27.1 - 33.3 pg CERNER BJ Comment:Testing performed by : [facility], [address] [place] [address] MCHC 33.8 32.3 - 35.7 g/dL C[facility]ER BJ Comment:Testing performed by : [facility], [address] [place] [address] RDW CV 16.5(H) 11.1 - 14.9 % CERNER BJ Comment:Testing performed by : [facility], [address] [place] [address] NRBC abs 0.00 0.00 - 0.01 K/cumm CERNER BJ Comment:Testing performed by : [facility], [address] [place], [place] [phone] Blood 08/06/2024 7:43 AM SECRETARY OFFICE CLERK 08/06/2024 7:51 AM SECRETARY OFFICE CLERK Hermelindo Butler MD LAB BLOOD ORDER ELANA Final Result Performing Organization Address City/[facility] Co de Phone Number [facility] [place] [address] * (ABNORMAL) PSA diagnostic (08/06/2024 7:43 AM SECRETARY OFFICE CLERK) Pathologist [facility] [place] PSA-Total 6.28(H) <=6.20 ng/mL Comment: Interpretive Data [...] last revised 21. Blood 08/06/2024 7:43 AM SECRETARY OFFICE CLERK 08/06/2024 7:52 AM SECRETARY OFFICE CLERK Hermelindo Butler MD LAB BLOOD ORDER ELANA Final Result Performing Organization Address [facility] Co de Phone Number [facility] [place] [address] * Lactate dehydrogenase (LD) (08/06/2024 7:43 AM SECRETARY OFFICE CLERK) [facility] Lactate dehydrogenase (LDH) 161 100 - 250 Units/L Blood 08/06/2024 7:43 AM SECRETARY OFFICE CLERK 08/06/2024 7:52 AM SECRETARY OFFICE CLERK Hermelindo Butler MD LAB BLOOD ORDER ELANA Final Result Performing Organization Address City/[facility] Co de Phone Number [facility] [place] [address] * (ABNORMAL) Lipid panel (08/06/2024 7:43 AM SECRETARY OFFICE CLERK) Cholesterol 128 30 - 199 mg/dL Comment: [...] revised on 2018. Triglycerides 149 <=149 mg/dL [facility] Comment: Interpretive Data Ages < or = [...] revised on 2018. HDL 38(L) >=40 mg/dL [facility] Comment: Interpretive Data Ages < or = [...] on 2018. LDL, calculated 64 <=129 mg/dL [facility] Comment: Interpretive Data Ages < or = [...] revised on 2024. Non-HDL Cholesterol 90 mg/dL [facility] Comment: Interpretive Data Ages < or = [...] last revised on 2018. Chol/HDL ratio 3 [facility] Blood 08/06/2024 7:43 AM SECRETARY OFFICE CLERK 08/06/2024 7:52 AM SECRETARY OFFICE CLERK Hermelindo Butler MD LAB BLOOD ORDER ELANA Final Result [facility] Department [place] [address] * (ABNORMAL) Comprehensive metabolic panel (08/06/2024 7:43 AM SECRETARY OFFICE CLERK) Sodium 145 135 - 145 mmol/L Potassium, pl 4.2 3.3 - 4.9 mmol/L [facility] Chloride 108 97 - 110 mmol/L [facility] CO2 30 22 - 32 mmol/L [facility] Anion gap 7 2 - 15 mmol/L [facility] BUN 51(H) 6 - 25 mg/dL [facility] Creatinine 2.21(H) 0.80 - 1.30 mg/dL [facility] Glucose 113 70 - 199 mg/dL [facility] Comment: Interpretive Data Fasting glucose >/= 126 [...] 2022. Calcium 9.2 8.5 - 10.3 mg/dL [facility] Bilirubin, total 0.5 0.1 - 1.2 mg/dL [facility] Protein, pl 6.2(L) 6.5 - 8.5 g/dL [facility] Albumin 4.1 3.5 - 5.0 g/dL [facility] Alk phos 61 40 - 130 Units/L [facility] ALT 15 7 - 55 Units/L [facility] AST 16 10 - 50 Units/L [facility] Blood 08/06/2024 7:43 AM SECRETARY OFFICE CLERK 08/06/2024 7:52 AM SECRETARY OFFICE CLERK Hermelindo Butler MD LAB BLOOD ORDER ELANA Final Result [facility] Department [place] [address] * aPTT (08/03/2024 9:21 AM SECRETARY OFFICE CLERK) aPTT 31 28 - 38 sec Comment: Interpretive Data Heparin therapeutic range: 66.0 - 100.0 seconds. Range based on correlation with therapeutic heparin activity range of 0.3 - 0.7 Units/mL. Current interpretive data was last revised on 2023. Blood 08/03/2024 9:21 AM SECRETARY OFFICE CLERK 08/03/2024 9:47 AM SECRETARY OFFICE CLERK Hermelindo Butler MD LAB BLOOD ORDER ELANA Final Result Performing Organization Address City/[facility] Co de Phone Number [facility] [place] [address] * Protime-INR (08/03/2024 9:21 AM SECRETARY OFFICE CLERK) PT 11.5 9.7 - 13.0 sec INR 1.06 0.90 - 1.20 [facility] Comment: Interpretive data Oral anticoagulant therapeutic ranges: Venous thromboembolism prophylaxis or treatment: 2.0-3.0 CARDIOLOGY Standard range: 2.0-3.0 High-intensity range: 2.5-3.5 Refer to indication-specific guidelines for appropriate target ranges for prosthetic heart valve replacement. Current interpretive data was last revised on 2019. Blood 08/03/2024 9:21 AM SECRETARY OFFICE CLERK 08/03/2024 9:47 AM SECRETARY OFFICE CLERK Hermelindo Butler MD LAB BLOOD ORDER ELANA Final Result Performing Organization Address [facility] de Phone Number [facility] [place] [address] * Immunotyping, serum with interpretation (08/03/2024 7:40 AM SECRETARY OFFICE CLERK) Pathologist [facility] [place] Immunosubtraction Please see comment Comment: NO PARAPROTEIN DETECTED Reviewed and signed by Hermelindo Mcnulty MD 08/04/2024 Blood 08/03/2024 7:40 AM SECRETARY OFFICE CLERK 08/03/2024 8:24 AM SECRETARY OFFICE CLERK Hermelindo Butler MD LAB BLOOD ORDER ELANA Final Result Performing Organization Address City/[facility] Co de Phone Number [facility] [place] [address] * (ABNORMAL) eGFR (08/03/2024 7:40 AM SECRETARY OFFICE CLERK) Pathologist [facility] [place] eGFR 37(L) >=60 mL/min/1. 73 m2 Comment: [...] last reviewed 2021. Blood 08/03/2024 7:40 AM SECRETARY OFFICE CLERK 08/03/2024 7:49 AM SECRETARY OFFICE CLERK Hermelindo Butler MD LAB BLOOD ORDER ELANA Final Result [facility] Department [place] [address] * (ABNORMAL) Differential, auto (08/03/2024 7:40 AM SECRETARY OFFICE CLERK) [facility] Neutrophil abs 5.6 1.5 - 6.5 K/cumm Comment:Testing performed by : [facility], [address] [place] [phone] Lymphocyte abs 0.9 0.8 - 3.3 K/cumm [facility] DUARTE Comment:Testing performed by : [facility], [address] [place] [phone] Monocyte abs 0.6 0.2 - 0.8 K/cumm [facility] Comment:Testing performed by : [facility], [address] [place] [phone] Eosinophil abs 0.8(H) 0.0 - 0.5 K/cumm [facility] Comment:Testing performed by : [facility], [address] [place] [phone] Basophil abs 0.0 0.0 - 0.1 K/cumm C[facility] Comment:Testing performed by : [facility], [address] [place] [phone] Neutrophil pct 70.4 % [facility] Comment: Interpretive Data Percent cell count reference ranges are not reported, since discordance with absolute values may lead to misinterpretation of CBC data. Current Interpretive Data was last revised on 2017. Testing performed by: [facility], [address] [place] [phone] Lymphocyte pct 11.2 % [facility] Comment: Interpretive Data Percent cell count reference ranges are not reported, since discordance with absolute values may lead to misinterpretation of CBC data. Current Interpretive Data was last revised on 2017. Testing performed by: [facility], [address] [place] [phone] Monocyte pct 7.7 % [facility] Comment: Interpretive Data Percent cell count reference ranges are not reported, since discordance with absolute values may lead to misinterpretation of CBC data. Current Interpretive Data was last revised on 2017. Testing performed by: [facility], [address] [place] [phone] Eosinophil pct 10.1 % [facility] Comment: Interpretive Data Percent cell count reference ranges are not reported, since discordance with absolute values may lead to misinterpretation of CBC data. Current Interpretive Data was last revised on 2017. Testing performed by: [facility], [address] [place] [phone] Basophil pct 0.6 % [facility] Comment: Interpretive Data Percent cell count reference ranges are not reported, since discordance with absolute values may lead to misinterpretation of CBC data. Current Interpretive Data was last revised on 2017. Testing performed by: [facility], [address] [place] [phone] Blood 08/03/2024 7:40 AM SECRETARY OFFICE CLERK 08/03/2024 7:47 AM SECRETARY OFFICE CLERK Hermelindo Butler MD LAB BLOOD ORDER ELANA Final Result [facility] Department [place] [address] * (ABNORMAL) Immunoglobulin free light chains (08/03/2024 7:40 AM SECRETARY OFFICE CLERK) [place]/Lambda ratio [facility] See Comment 0.26 - 1.65 Comment: Unable to calculate exact result. Interpretive Data The Binding Site FreeLite assay procedure was used. Results from different manufacturers or methods may not be comparable. Serial testing should be performed using the same methods and instrumentation. Current Interpretive Data was last revised on 2023. [place] free light chain [facility] <0.06(L) 0.33 - 1.94 mg/dL [facility] Comment: Interpretive Data The Binding Site FreeLite assay procedure was used. Results from different manufacturers or methods may not be comparable. Serial testing should be performed using the same methods and instrumentation. Current Interpretive Data was last revised on 2023. Lambda free light chain [facility] <0.13(L) 0.57 - 2.63 mg/dL [facility] Comment: Interpretive Data The Binding Site FreeLite assay procedure was used. Results from different manufacturers or methods may not be comparable. Serial testing should be performed using the same methods and instrumentation. Current Interpretive Data was last revised on 2023. Blood 08/03/2024 7:40 AM SECRETARY OFFICE CLERK 08/03/2024 8:24 AM SECRETARY OFFICE CLERK Hermelindo Butler MD LAB BLOOD ORDER ELANA Final Result [facility] Department [place] [address] * (ABNORMAL) CBC with auto differential (08/03/2024 7:40 AM SECRETARY OFFICE CLERK) WBC 7.9 3.8 - 9.9 K/cumm Comment:Testing performed by : [facility], [address] [place] [address] Hgb 13.7 13.0 - 17.5 g/dL [facility]ER[facility] Comment:Testing performed by : [facility], [address] [place] [address] Hct 41.5 38.9 - 50.3 % [facility]ER[facility] Comment:Testing performed by : [facility], [address] [place] [address] Plt 163 150 - 400 K/cumm [facility] Comment:Testing performed by : [facility], [address] [place] [address] MPV 7.8 6.8 - 10.4 fL [facility] Comment:Testing performed by : [facility], [address] [place] [address] RBC 4.50 4.30 - 5.80 M/cumm [facility]ER[facility] Comment:Testing performed by : [facility], [address] [place] [address] MCV 92.1 81.3 - 96.4 fL [facility] Comment:Testing performed by : [facility], [address] [place] [address] MCH 30.4 27.1 - 33.3 pg [facility] Comment:Testing performed by : [facility], [address] [place] [address] MCHC 33.0 32.3 - 35.7 g/dL [facility] Comment:Testing performed by : [facility], [address] [place] [address] RDW CV 16.6(H) 11.1 - 14.9 % [facility] Comment:Testing performed by : [facility], [address] [place] [phone] NRBC abs 0.00 0.00 - 0.01 K/cumm [facility] Comment:Testing performed by : [facility], [address] [place] [phone] Blood 08/03/2024 7:40 AM SECRETARY OFFICE CLERK 08/03/2024 7:47 AM SECRETARY OFFICE CLERK Hermelindo Butler MD LAB BLOOD ORDER ELANA Final Result [facility] Department [place] [address] * (ABNORMAL) Protein electrophoresis with reflex, serum with interpretation (08/03/2024 7:40 AM SECRETARY OFFICE CLERK) Protein, sr 5.7(L) 6.2 - 8.2 g/dL Albumin 3.8 3.2 - 5.0 g/dL [facility] Alpha-1 globulin 0.3 0.2 - 0.4 g/dL [facility] Alpha-2 globulin 0.6 0.5 - 1.0 g/dL [facility] Beta-1 globulin 0.4 0.3 - 0.6 g/dL [facility] Beta-2 globulin 0.3 0.2 - 0.6 g/dL [facility] Gamma globulin 0.2(L) 0.5 - 1.7 g/dL [facility] SPEP interp Please see comment [facility] Comment: No apparent monoclonal peak Decreased gamma globulins Electrophoretic pattern appears similar to previous sample 07/14/24 *See immunotyping for further information Reviewed and signed by Hermelindo Mcnulty MD 08/04/2024 Blood 08/03/2024 7:40 AM SECRETARY OFFICE CLERK 08/03/2024 8:24 AM SECRETARY OFFICE CLERK Hermelindo Butler MD LAB BLOOD ORDER ELANA Final Result [facility] [place] [address] * Magnesium (08/03/2024 7:40 AM SECRETARY OFFICE CLERK) Pathologist [facility] [place] Magnesium 2.2 1.4 - 2.5 mg/dL Blood 08/03/2024 7:40 AM SECRETARY OFFICE CLERK 08/03/2024 9:36 AM SECRETARY OFFICE CLERK Hermelindo Butler MD LAB BLOOD ORDER ELANA Final Result Performing Organization Address City/[facility] [place] [address] * Lactate dehydrogenase (LD) (08/03/2024 7:40 AM SECRETARY OFFICE CLERK) [facility] Lactate dehydrogenase (LDH) 172 100 - 250 Units/L Blood 08/03/2024 7:40 AM SECRETARY OFFICE CLERK 08/03/2024 7:49 AM SECRETARY OFFICE CLERK Result [facility] Hermelindo Butler MD LAB BLOOD ORDER ELANA Final Result Performing Organization Address City/[facility] [place] [address] * (ABNORMAL) Hemoglobin A1c (08/03/2024 7:40 AM SECRETARY OFFICE CLERK) [facility] Hgb A1C 5.8(H) 4.0 - 5.6 % Estimated Average Glucose 120 mg/dL [facility] Comment: The ADA recommends reporting an estimated Average Glucose (eAG) with all Hemoglobin A1c results using the equation derived from a study of 507 normal and diabetic adults. Minority populations were underrepresented and children were not included. (Diabetes Care 2020; 43(S1): S66-S76). The eAG is not equivalent to a fasting glucose. Blood 08/03/2024 7:40 AM SECRETARY OFFICE CLERK 08/03/2024 7:49 AM SECRETARY OFFICE CLERK Lyndsey M. Rylan DRYWALLER LAB BLOOD ORDERABLES Angeles l Result [facility] [place] [address] * Gamma GT (08/03/2024 7:40 AM SECRETARY OFFICE CLERK) [facility] GGT 23 10 - 50 Units/L Blood 08/03/2024 7:40 AM SECRETARY OFFICE CLERK 08/03/2024 9:36 AM SECRETARY OFFICE CLERK Hermelindo Butler MD LAB BLOOD ORDER ELANA Final Result Performing Organization Address [facility] Co de Phone Number [facility] [address] * (ABNORMAL) IgA (08/03/2024 7:40 AM SECRETARY OFFICE CLERK) [facility] Immunoglobulin A <50(L) 70 - 400 mg/dL Blood 08/03/2024 7:40 AM SECRETARY OFFICE CLERK 08/03/2024 8:09 AM SECRETARY OFFICE CLERK Hermelindo Butler MD LAB BLOOD ORDER ELANA Final Result Performing Organization Address [facility] Co de Phone Number [facility] [place] [address] * (ABNORMAL) IgM (08/03/2024 7:40 AM SECRETARY OFFICE CLERK) [facility] Immunoglobulin M <25(L) 40 - 230 mg/dL Blood 08/03/2024 7:40 AM SECRETARY OFFICE CLERK 08/03/2024 8:09 AM SECRETARY OFFICE CLERK Hermelindo Butler MD LAB BLOOD ORDER ELANA Final Result Performing Organization Address City/[facility] Co de Phone Number [facility] [place] [address] * (ABNORMAL) IgG (08/03/2024 7:40 AM SECRETARY OFFICE CLERK) Pathologist [facility] [place] Immunoglobulin G <300(L) 700 - 1,600 mg/dL Blood 08/03/2024 7:40 AM SECRETARY OFFICE CLERK 08/03/2024 8:09 AM SECRETARY OFFICE CLERK Hermelindo Butler MD LAB BLOOD ORDER ELANA Final Result [facility] [place] [address] * (ABNORMAL) Comprehensive metabolic panel (08/03/2024 7:40 AM SECRETARY OFFICE CLERK) Pathologist [facility] [place] Sodium 141 135 - 145 mmol/L Potassium, pl 4.0 3.3 - 4.9 mmol/L [facility] Chloride 104 97 - 110 mmol/L [facility] CO2 30 22 - 32 mmol/L [facility] Anion gap 7 2 - 15 mmol/L [facility] BUN 47(H) 6 - 25 mg/dL [facility] Creatinine 1.92(H) 0.80 - 1.30 mg/dL [facility] Glucose 116 70 - 199 mg/dL [facility] Comment: Interpretive Data Fasting glucose >/= 126 [...] 2022. Calcium 9.2 8.5 - 10.3 mg/dL [facility] Bilirubin, total 0.7 0.1 - 1.2 mg/dL [facility] Protein, pl 6.2(L) 6.5 - 8.5 g/dL [facility] Albumin 3.9 3.5 - 5.0 g/dL [facility] Alk phos 63 40 - 130 Units/L [facility] ALT 15 7 - 55 Units/L [facility] AST 17 10 - 50 Units/L [facility] Blood 08/03/2024 7:40 AM SECRETARY OFFICE CLERK 08/03/2024 7:49 AM SECRETARY OFFICE CLERK Hermelindo Butler MD LAB BLOOD ORDER ELANA Final Result Performing Organization Address [facility] Co de Phone Number [facility] Department [place] [address] * (ABNORMAL) Urinalysis reflex to microscopic and culture Urine, clean voided (08/03/2024 7:30 AM SECRETARY OFFICE CLERK) Color, ur Straw Yellow Clarity, ur Clear Clear [facility] Specific gravity, ur 1.012 1.003 - 1.030 [facility] pH, urine 5.5 [facility] Comment: Interpretive Data U rine pH is affected by diet, medications, systemic acid-base disturbances, and renal tubular function. pH may affect urinary stone formation. For example, urine pH below 6.0 may help reduce the tendency for calcium phosphate stones and pH greater than 6.0 may reduce the tendency for uric acid stone formation. Source: [facility] Current Interpretive Data was last revised on 2017 Protein, ur ql Negative Negative [facility] Glucose, ur ql Negative Negative [facility] Ketones, ur Negative Negative [facility] Bilirubin, ur Negative Negative [facility] Blood, ur 2+(A) Negative [facility] Urobilinogen, ur <2.0 <2.0 mg/dL [facility] Nitrite, ur Negative Negative [facility] Leukocyte esterase, ur Negative [facility] UA reflex comment Reflex to microscopic UA will be performed. [facility] Urine, clean voided 08/03/2024 7:30 AM SECRETARY OFFICE CLERK 08/03/2024 7:30 AM SECRETARY OFFICE CLERK Lyndsey Fagan NP LAB MICROBIOLOGY - GENERA L ORDERABLES Final Result Performing Organization Address City/[facility]/ZIP Co de Phone Number [facility] Department [place] [address] * (ABNORMAL) Urinalysis, microscopic only (08/03/2024 7:30 AM SECRETARY OFFICE CLERK) WBC, ur 6-10(A) 0 - 5 /HPF RBC, ur 11-20(A) 0 - 2 /HPF [facility] Epithelial cells, squamous, ur 1-5 0 - 5 /HPF [facility] Bacteria, ur Trace(A) [facility] Culture Reflex Comment Reflex conditions for urine culture (WBC >10) not met. [facility] Urine, clean voided 08/03/2024 7:30 AM SECRETARY OFFICE CLERK 08/03/2024 7:30 AM SECRETARY OFFICE CLERK Lyndsey Fagan NP LAB URINE ORDERABLES [place] l Result Performing Organization Address [facility] Co de Phone Number [facility] Department [place] [address] * Urine culture Urine, clean voided (08/03/2024 7:30 AM SECRETARY OFFICE CLERK) Pathologist [facility] [place] Report Final Report: No growth Urine, clean voided 08/03/2024 7:30 AM SECRETARY OFFICE CLERK 08/03/2024 9:59 AM SECRETARY OFFICE CLERK Narrative [facility] - 08/04/2024 11:14 AM SECRETARY OFFICE CLERK Testing performed by [facility] ([phone]) us Hermelindo Butler MD LAB MICROBIOLOG Y - GENERAL ORDERABLES Final Result Performing Organization Address [facility] [place] [address] * Immunotyping, serum with interpretation (07/13/2024 7:40 AM SECRETARY OFFICE CLERK) Pathologist [facility] [place] Immunosubtraction Please see comment Comment: NO PARAPROTEIN DETECTED Reviewed and signed by Rufino Huff MD, PhD 07/14/2024 Blood 07/13/2024 7:40 AM SECRETARY OFFICE CLERK 07/13/2024 8:42 AM SECRETARY OFFICE CLERK Hermelindo Butler MD LAB BLOOD ORDER ELANA Final Result Performing Organization Address City/[facility]/ZIP Co de Phone Number [facility] [place] [address] * (ABNORMAL) eGFR (07/13/2024 7:40 AM SECRETARY OFFICE CLERK) eGFR 57(L) >=60 mL/min/1. 73 m2 Comment: [...] last reviewed 2021. Blood 07/13/2024 7:40 AM SECRETARY OFFICE CLERK 07/13/2024 7:47 AM SECRETARY OFFICE CLERK Hermelindo Butler MD LAB BLOOD ORDER ELANA Final Result Performing Organization Address City/[facility]/ZIP Co de Phone Number MT [facility] Department [place] [address] * Differential, auto (07/13/2024 7:40 AM SECRETARY OFFICE CLERK) Neutrophil abs 5.4 1.5 - 6.5 K/cumm Comment:Testing performed by : [facility], [address] [place], [place] [phone] Lymphocyte abs 0.9 0.8 - 3.3 K/cumm [facility] Comment:Testing performed by : [facility], [address] [place] [phone] Monocyte abs 0.5 0.2 - 0.8 K/cumm [facility] Comment:Testing performed by : [facility], [address] [place], [place] [phone] Eosinophil abs 0.5 0.0 - 0.5 K/cumm [facility] Comment:Testing performed by : [facility], [address] [place], [place] [phone] Basophil abs 0.0 0.0 - 0.1 K/cumm [facility] Comment:Testing performed by : [facility], [address] [place] [phone] Neutrophil pct 73.6 % [facility] Comment: Interpretive Data Percent cell count reference ranges are not reported, since discordance with absolute values may lead to misinterpretation of CBC data. Current Interpretive Data was last revised on 2017. Testing performed by: [facility], [address] [place] [phone] Lymphocyte pct 12.0 % [facility] Comment: Interpretive Data Percent cell count reference ranges are not reported, since discordance with absolute values may lead to misinterpretation of CBC data. Current Interpretive Data was last revised on 2017. Testing performed by: [facility], [address] [place] [phone] Monocyte pct 7.4 % [facility] Comment: Interpretive Data Percent cell count reference ranges are not reported, since discordance with absolute values may lead to misinterpretation of CBC data. Current Interpretive Data was last revised on 2017. Testing performed by: [facility], [address] [place] [phone] Eosinophil pct 6.5 % [facility] Comment: Interpretive Data Percent cell count reference ranges are not reported, since discordance with absolute values may lead to misinterpretation of CBC data. Current Interpretive Data was last revised on 2017. Testing performed by: [facility], [address] [place] [phone] Basophil pct 0.5 % [facility] Comment: Interpretive Data Percent cell count reference ranges are not reported, since discordance with absolute values may lead to misinterpretation of CBC data. Current Interpretive Data was last revised on 2017. Testing performed by: [facility], [address] [place] [phone] Blood 07/13/2024 7:40 AM SECRETARY OFFICE CLERK 07/13/2024 7:46 AM SECRETARY OFFICE CLERK Hermelindo Butler MD LAB BLOOD ORDER ELANA Final Result [facility] Department [place] [address] * (ABNORMAL) Immunoglobulin free light chains (07/13/2024 7:40 AM SECRETARY OFFICE CLERK) Sapulpa/Lambda ratio [facility] See Comment 0.26 - 1.65 Comment: Unable to calculate exact result. Interpretive Data The Binding Site FreeLite assay procedure was used. Results from different manufacturers or methods may not be comparable. Serial testing should be performed using the same methods and instrumentation. Current Interpretive Data was last revised on 2023. S[place]ulpa free light chain [facility] <0.06(L) 0.33 - [...] revised on 2023. Blood 07/13/2024 7:40 AM SECRETARY OFFICE CLERK 07/13/2024 8:42 AM SECRETARY OFFICE CLERK us Hermelindo Butler MD LAB BLOOD ORDER ELANA Final Result [facility] Department [place] [address] * (ABNORMAL) CBC with auto differential (07/13/2024 7:40 AM SECRETARY OFFICE CLERK) WBC 7.4 3.8 - 9.9 K/cumm Comment:Testing performed by : [facility], [address] [place] [address] Hgb 14.4 13.0 - 17.5 g/dL [facility] Comment:Testing performed by : [facility], [address] [place] [address] Hct 44.1 38.9 - 50.3 % [facility] Comment:Testing performed by : [facility], [address] [place] [address] Plt 174 150 - 400 K/cumm MT [facility] Comment:Testing performed by : [facility], [address] [place] [address] MPV 7.5 6.8 - 10.4 fL MT [facility] Comment:Testing performed by : [facility], [address] [place] [address] RBC 4.75 4.30 - 5.80 M/cumm [facility] Comment:Testing performed by : [facility], [address] [place] [address] MCV 92.8 81.3 - 96.4 fL [facility] Comment:Testing performed by : [facility], [address] [place] [address] MCH 30.2 27.1 - 33.3 pg [facility] Comment:Testing performed by : [facility], [address] [place] [phone] MCHC 32.6 32.3 - 35.7 g/dL MT [facility] Comment:Testing performed by : [facility], [address] [place] [phone] RDW CV 16.2(H) 11.1 - 14.9 % [facility] Comment:Testing performed by : [facility], [address] [place] [phone] NRBC abs 0.00 0.00 - 0.01 K/cumm MT [facility] Comment:Testing performed by : [facility], [address] [place] [phone] Blood 07/13/2024 7:40 AM SECRETARY OFFICE CLERK 07/13/2024 7:46 AM SECRETARY OFFICE CLERK Hermelindo Butler MD LAB BLOOD ORDER ELANA Final Result [facility] Department [place] [address] * (ABNORMAL) Protein electrophoresis with reflex, serum with interpretation (07/13/2024 7:40 AM SECRETARY OFFICE CLERK) Protein, sr 5.7(L) 6.2 - 8.2 g/dL Albumin 3.7 3.2 - 5.0 g/dL [facility] Alpha-1 globulin 0.3 0.2 - 0.4 g/dL [facility] Alpha-2 globulin 0.6 0.5 - 1.0 g/dL [facility] Beta-1 globulin 0.4 0.3 - 0.6 g/dL [facility] Beta-2 globulin 0.3 0.2 - 0.6 g/dL [facility] Gamma globulin 0.3(L) 0.5 - 1.7 g/dL [facility] SPEP interp Please see comment MT [facility] Comment: No apparent monoclonal peak Decreased gamma globulins Electrophoretic pattern appears similar to previous sample 06/23/24 See immunotyping for further information Reviewed and signed by Rufino Huff MD, PhD 07/14/2024 Blood 07/13/2024 7:40 AM SECRETARY OFFICE CLERK 07/13/2024 8:42 AM SECRETARY OFFICE CLERK Hermelindo Butler MD LAB BLOOD ORDER ELANA Final Result Performing Organization Address [facility] de Phone Number [facility] [place] [address] * Magnesium (07/13/2024 7:40 AM SECRETARY OFFICE CLERK) Magnesium 2.2 1.4 - 2.5 mg/dL Blood 07/13/2024 7:40 AM SECRETARY OFFICE CLERK 07/13/2024 7:47 AM SECRETARY OFFICE CLERK Hermelindo Butler MD LAB BLOOD ORDER ELANA Final Result Performing Organization Address [facility] de Phone Number [facility] [place] [address] * Lactate dehydrogenase (LD) (07/13/2024 7:40 AM SECRETARY OFFICE CLERK) Lactate dehydrogenase (LDH) 152 100 - 250 Units/L Blood 07/13/2024 7:40 AM SECRETARY OFFICE CLERK 07/13/2024 7:47 AM SECRETARY OFFICE CLERK Hermelindo Butler MD LAB BLOOD ORDER ELANA Final Result Performing Organization Address City/[facility] de Phone Number [facility] [place] [address] * Gamma GT (07/13/2024 7:40 AM SECRETARY OFFICE CLERK) GGT 27 10 - 50 Units/L Blood 07/13/2024 7:40 AM SECRETARY OFFICE CLERK 07/13/2024 7:47 AM SECRETARY OFFICE CLERK Hermelindo Butler MD LAB BLOOD ORDER ELANA Final Result Performing Organization Address City/[facility]/ZIP Co de Phone Number [facility] [place] [address] * (ABNORMAL) IgA (07/13/2024 7:40 AM SECRETARY OFFICE CLERK) Immunoglobulin A <50(L) 70 - 400 mg/dL Blood 07/13/2024 7:40 AM SECRETARY OFFICE CLERK 07/13/2024 7:59 AM SECRETARY OFFICE CLERK us Hermelindo Butler MD LAB BLOOD ORDER ELANA Final Result Performing Organization Address [facility] [place] [address] * (ABNORMAL) IgM (07/13/2024 7:40 AM SECRETARY OFFICE CLERK) Immunoglobulin M <25(L) 40 - 230 mg/dL Blood 07/13/2024 7:40 AM SECRETARY OFFICE CLERK 07/13/2024 7:59 AM SECRETARY OFFICE CLERK Hermelindo Butler MD LAB BLOOD ORDER ELANA Final Result Performing Organization Address City/[facility] Co de Phone Number [facility] [place] [address] * (ABNORMAL) IgG (07/13/2024 7:40 AM SECRETARY OFFICE CLERK) Immunoglobulin G <300(L) 700 - 1,600 mg/dL Blood 07/13/2024 7:40 AM SECRETARY OFFICE CLERK 07/13/2024 7:59 AM SECRETARY OFFICE CLERK us Hermelindo Butler MD LAB BLOOD ORDER ELANA Final Result Performing Organization Address City/[facility]/ZIP Co de Phone Number [facility] Department [place] [address] * (ABNORMAL) Comprehensive metabolic panel (07/13/2024 7:40 AM SECRETARY OFFICE CLERK) Sodium 144 135 - 145 mmol/L Potassium, pl 4.2 3.3 - 4.9 mmol/L [facility] Chloride 107 97 - 110 mmol/L [facility] CO2 33(H) 22 - 32 mmol/L [facility] Anion gap 4 2 - 15 mmol/L [facility] BUN 29(H) 6 - 25 mg/dL [facility] Creatinine 1.34(H) 0.80 - 1.30 mg/dL [facility] Glucose 125 70 - 199 mg/dL [facility] Comment: Interpretive Data Fasting glucose >/= 126 [...] 2022. Calcium 9.4 8.5 - 10.3 mg/dL [facility] Bilirubin, total 0.7 0.1 - 1.2 mg/dL [facility] Protein, pl 6.2(L) 6.5 - 8.5 g/dL [facility] Albumin 4.1 3.5 - 5.0 g/dL [facility] Alk phos 65 40 - 130 Units/L [facility] ALT 18 7 - 55 Units/L [facility] AST 16 10 - 50 Units/L [facility] Blood 07/13/2024 7:40 AM SECRETARY OFFICE CLERK 07/13/2024 7:47 AM SECRETARY OFFICE CLERK us Hermelindo Butler MD LAB BLOOD ORDER ELANA Final Result [facility] Department [place] [address] * aPTT (07/13/2024 7:24 AM SECRETARY OFFICE CLERK) Pathologist [facility] [place] aPTT 28 28 - 38 sec Comment: Interpretive Data Heparin therapeutic range: 66.0 - 100.0 seconds. Range based on correlation with therapeutic heparin activity range of 0.3 - 0.7 Units/mL. Current interpretive data was last revised on 2023. Blood 07/13/2024 7:24 AM SECRETARY OFFICE CLERK 07/13/2024 7:59 AM SECRETARY OFFICE CLERK Hermelindo Butler MD LAB BLOOD ORDER ELANA Final Result Performing Organization Address [facility] Co de Phone Number MT [facility] [place] [address] * Protime-INR (07/13/2024 7:24 AM SECRETARY OFFICE CLERK) Pathologist [facility] [place] PT 11.5 9.7 - 13.0 sec INR 1.06 0.90 - 1.20 [facility] Comment: Interpretive data Oral anticoagulant therapeutic ranges: Venous thromboembolism prophylaxis or treatment: 2.0-3.0 CARDIOLOGY Standard range: 2.0-3.0 High-intensity range: 2.5-3.5 Refer to indication-specific guidelines for appropriate target ranges for prosthetic heart valve replacement. Current interpretive data was last revised on 2019. Blood 07/13/2024 7:24 AM SECRETARY OFFICE CLERK 07/13/2024 7:59 AM SECRETARY OFFICE CLERK Hermelindo Butler MD LAB BLOOD ORDER ELANA Final Result Performing Organization Address City/[facility]/[place] [address] * Immunotyping, serum (06/22/2024 7:20 AM SECRETARY OFFICE CLERK) Pathologist [facility] [place] Immunosubtraction Please see comment Comment: NO PARAPROTEIN DETECTED Reviewed and signed by Fernanod Nunez MD, PhD 06/23/2024 Blood 06/22/2024 7:20 AM SECRETARY OFFICE CLERK 06/22/2024 10:03 AM SECRETARY OFFICE CLERK Hermelindo Butler MD LAB BLOOD ORDER ELANA Final Result Performing Organization Address City/[facility] Co de Phone Number MT [facility] [place] [address] * eGFR (06/22/2024 7:20 AM SECRETARY OFFICE CLERK) eGFR 66 >=60 mL/min/1. 73 m2 Comment: [...] last reviewed 2021. Blood 06/22/2024 7:20 AM SECRETARY OFFICE CLERK 06/22/2024 8:12 AM SECRETARY OFFICE CLERK Hermelindo Butler MD LAB BLOOD ORDER ELANA Final Result Performing Organization Address City/[facility]/ZIP Co de Phone Number [facility] [place] [address] * Differential, auto (06/22/2024 7:20 AM SECRETARY OFFICE CLERK) Neutrophil abs 5.4 1.5 - 6.5 K/cumm Comment:Testing performed by : [facility], [address] [place] [phone] Lymphocyte abs 0.9 0.8 - 3.3 K/cumm [facility] Comment:Testing performed by : [facility], [address] [place] [phone] Monocyte abs 0.5 0.2 - 0.8 K/cumm [facility] Comment:Testing performed by : [facility], [address] [place], [place] [phone] Eosinophil abs 0.2 0.0 - 0.5 K/cumm [facility] Comment:Testing performed by : [facility], [address] [place] [phone] Basophil abs 0.0 0.0 - 0.1 K/cumm [facility] Comment:Testing performed by : [facility], [address] [place] [phone] Neutrophil pct 75.7 % [facility] Comment: Interpretive Data Percent cell count reference ranges are not reported, since discordance with absolute values may lead to misinterpretation of CBC data. Current Interpretive Data was last revised on 2017. Testing performed by: [facility], [address] [place] [phone] Lymphocyte pct 13.1 % [facility] Comment: Interpretive Data Percent cell count reference ranges are not reported, since discordance with absolute values may lead to misinterpretation of CBC data. Current Interpretive Data was last revised on 2017. Testing performed by: [facility], [address] [place] [phone] Monocyte pct 7.1 % [facility] Comment: Interpretive Data Percent cell count reference ranges are not reported, since discordance with absolute values may lead to misinterpretation of CBC data. Current Interpretive Data was last revised on 2017. Testing performed by: [facility], [address] [place] [phone] Eosinophil pct 3.5 % [facility] Comment: Interpretive Data Percent cell count reference ranges are not reported, since discordance with absolute values may lead to misinterpretation of CBC data. Current Interpretive Data was last revised on 2017. Testing performed by: [facility], [facility] [place] [phone] Basophil pct 0.6 % [facility] Comment: Interpretive Data Percent cell count reference ranges are not reported, since discordance with absolute values may lead to misinterpretation of CBC data. Current Interpretive Data was last revised on 2017. Testing performed by: [facility], [facility] [place] [phone] Blood 06/22/2024 7:20 AM SECRETARY OFFICE CLERK 06/22/2024 8:08 AM SECRETARY OFFICE CLERK Hermelindo Butler MD LAB BLOOD ORDER ELANA Final Result [facility] [place] [address] * (ABNORMAL) Immunoglobulin free light chains (06/22/2024 7:20 AM SECRETARY OFFICE CLERK) S[place]ul[place]/Lambda ratio [facility] See Comment 0.26 - 1.65 Comment: Unable to calculate exact result. Interpretive Data The Binding Site FreeLite assay procedure was used. Results from different manufacturers or methods may not be comparable. Serial testing should be performed using the same methods and instrumentation. Current Interpretive Data was last revised on 2023. S[place]ulpa free light chain [facility] <0.06(L) 0.33 - [...] revised on 2023. Blood 06/22/2024 7:20 AM SECRETARY OFFICE CLERK 06/22/2024 9:53 AM SECRETARY OFFICE CLERK us Hermelindo Butler MD LAB BLOOD ORDER ELANA Final Result [facility] [place] [address] * (ABNORMAL) CBC with auto differential (06/22/2024 7:20 AM SECRETARY OFFICE CLERK) WBC 7.1 3.8 - 9.9 K/cumm Comment:Testing performed by : [facility], [address] [place] [address] Hgb 14.6 13.0 - 17.5 g/dL [facility] Comment:Testing performed by : [facility], [address] [place] [address] Hct 45.6 38.9 - 50.3 % [facility] Comment:Testing performed by : [facility], [address] [place] [address] Plt 196 150 - 400 K/cumm [facility] Comment:Testing performed by : [facility], [address] [place] [address] MPV 8.3 6.8 - 10.4 fL [facility] Comment:Testing performed by : [facility], [address] [place] [address] RBC 4.88 4.30 - 5.80 M/cumm [facility] Comment:Testing performed by : [facility], [address] [place] [address] MCV 93.5 81.3 - 96.4 fL [facility] Comment:Testing performed by : [facility], [address] [place] [address] MCH 29.9 27.1 - 33.3 pg [facility] Comment:Testing performed by : [facility], [address] [place], [place] [phone] MCHC 31.9(L) 32.3 - 35.7 g/dL [facility] Comment:Testing performed by : [facility], [address] [place], [place] [phone] RDW CV 16.0(H) 11.1 - 14.9 % [facility] Comment:Testing performed by : [facility], [address] [place] [address] NRBC abs 0.20(H) 0.00 - 0.01 K/cumm [facility] Comment:Testing performed by : [facility], [address] [place] [phone] Blood 06/22/2024 7:20 AM SECRETARY OFFICE CLERK 06/22/2024 8:08 AM SECRETARY OFFICE CLERK Hermelindo Butler MD LAB BLOOD ORDER ELANA Final Result Performing Organization Address City/[facility] Co de Phone Number [facility] Department [place] [address] * aPTT (06/22/2024 7:20 AM SECRETARY OFFICE CLERK) Pathologist [facility] [place] aPTT 29 28 - 38 sec Comment: Interpretive Data Heparin therapeutic range: 66.0 - 100.0 seconds. Range based on correlation with therapeutic heparin activity range of 0.3 - 0.7 Units/mL. Current interpretive data was last revised on 2023. Blood 06/22/2024 7:20 AM SECRETARY OFFICE CLERK 06/22/2024 9:50 AM SECRETARY OFFICE CLERK Hermelindo Butler MD LAB BLOOD ORDER ELANA Final Result Performing Organization Address City/[facility] Co de Phone Number [facility] [place] [address] * Protime-INR (06/22/2024 7:20 AM SECRETARY OFFICE CLERK) PT 10.9 9.7 - 13.0 sec INR 1.01 0.90 - 1.20 [facility] Comment: Interpretive data Oral anticoagulant therapeutic ranges: Venous thromboembolism prophylaxis or treatment: 2.0-3.0 CARDIOLOGY Standard range: 2.0-3.0 High-intensity range: 2.5-3.5 Refer to indication-specific guidelines for appropriate target ranges for prosthetic heart valve replacement. Current interpretive data was last revised on 2019. Blood 06/22/2024 7:20 AM SECRETARY OFFICE CLERK 06/22/2024 9:50 AM SECRETARY OFFICE CLERK Hermelindo Butler MD LAB BLOOD ORDER ELANA Final Result [facility] Department [place] [address] * (ABNORMAL) Protein electrophoresis with reflex, serum (06/22/2024 7:20 AM SECRETARY OFFICE CLERK) Pathologist [facility] [place] Protein, sr 5.9(L) 6.2 - 8.2 g/dL Albumin 3.7 3.2 - 5.0 g/dL [facility] Alpha-1 globulin 0.3 0.2 - 0.4 g/dL [facility] Alpha-2 globulin 0.7 0.5 - 1.0 g/dL [facility] Beta-1 globulin 0.5 0.3 - 0.6 g/dL [facility] Beta-2 globulin 0.3 0.2 - 0.6 g/dL [facility] Gamma globulin 0.4(L) 0.5 - 1.7 g/dL [facility] SPEP interp Please see comment [facility] Comment: No apparent monoclonal peak Decreased gamma globulins Electrophoretic pattern appears similar to previous sample 05-19-24 See immunotyping for further information Reviewed and signed by Fernando Nunez MD, PhD 06/23/2024 Immunotyping See Immunotyping Results [facility] Blood 06/22/2024 7:20 AM SECRETARY OFFICE CLERK 06/22/2024 9:55 AM SECRETARY OFFICE CLERK us Hermelindo Butler MD LAB BLOOD ORDER ELANA Final Result [facility] [place] [address] * Magnesium (06/22/2024 7:20 AM SECRETARY OFFICE CLERK) Magnesium 2.2 1.4 - 2.5 mg/dL Blood 06/22/2024 7:20 AM SECRETARY OFFICE CLERK 06/22/2024 8:12 AM SECRETARY OFFICE CLERK Hermelindo Butler MD LAB BLOOD ORDER ELANA Final Result Performing Organization Address [facility] de Phone Number [facility] [place] [address] * Lactate dehydrogenase (LD) (06/22/2024 7:20 AM SECRETARY OFFICE CLERK) Lactate dehydrogenase (LDH) 157 100 - 250 Units/L Blood 06/22/2024 7:20 AM SECRETARY OFFICE CLERK 06/22/2024 8:12 AM SECRETARY OFFICE CLERK Hermelindo Butler MD LAB BLOOD ORDER ELANA Final Result Performing Organization Address City/[facility] Co de Phone Number [facility] [place] [address] * Gamma GT (06/22/2024 7:20 AM SECRETARY OFFICE CLERK) GGT 30 10 - 50 Units/L Blood 06/22/2024 7:20 AM SECRETARY OFFICE CLERK 06/22/2024 8:12 AM SECRETARY OFFICE CLERK Hermelindo Butler MD LAB BLOOD ORDER ELANA Final Result [facility] [place] [address] * (ABNORMAL) IgA (06/22/2024 7:20 AM SECRETARY OFFICE CLERK) Immunoglobulin A <50(L) 70 - 400 mg/dL Blood 06/22/2024 7:20 AM SECRETARY OFFICE CLERK 06/22/2024 9:49 AM SECRETARY OFFICE CLERK Hermelindo Butler MD LAB BLOOD ORDER ELANA Final Result Performing Organization Address City/[facility] Co de Phone Number [facility] [place] [address] * (ABNORMAL) IgM (06/22/2024 7:20 AM SECRETARY OFFICE CLERK) Pathologist [facility] [place] Immunoglobulin M <25(L) 40 - 230 mg/dL Blood 06/22/2024 7:20 AM SECRETARY OFFICE CLERK 06/22/2024 9:49 AM SECRETARY OFFICE CLERK Hermelindo Butler MD LAB BLOOD ORDER ELANA Final Result Performing Organization Address [facility] de Phone Number [facility] [place] [address] * (ABNORMAL) IgG (06/22/2024 7:20 AM SECRETARY OFFICE CLERK) Pathologist [facility] [place] Immunoglobulin G 423(L) 700 - 1,600 mg/dL Blood 06/22/2024 7:20 AM SECRETARY OFFICE CLERK 06/22/2024 9:49 AM SECRETARY OFFICE CLERK Hermelindo Butler MD LAB BLOOD ORDER ELANA Final Result Performing Organization Address City/[facility] Co de Phone Number [facility] [place] [address] * (ABNORMAL) Comprehensive metabolic panel (06/22/2024 7:20 AM SECRETARY OFFICE CLERK) [facility] Sodium 141 135 - 145 mmol/L Potassium, pl 4.1 3.3 - 4.9 mmol/L [facility] Chloride 104 97 - 110 mmol/L [facility] CO2 31 22 - 32 mmol/L [facility] Anion gap 6 2 - 15 mmol/L [facility] BUN 24 6 - 25 mg/dL [facility] Creatinine 1.18 0.80 - 1.30 mg/dL [facility] Glucose 111 70 - 199 mg/dL [facility] Comment: Interpretive Data Fasting glucose >/= 126 [...] 2022. Calcium 9.5 8.5 - 10.3 mg/dL [facility] Bilirubin, total 0.7 0.1 - 1.2 mg/dL [facility] Protein, pl 6.3(L) 6.5 - 8.5 g/dL [facility] Albumin 3.8 3.5 - 5.0 g/dL [facility] Alk phos 63 40 - 130 Units/L [facility] ALT 18 7 - 55 Units/L [facility] AST 20 10 - 50 Units/L [facility] Blood 06/22/2024 7:20 AM SECRETARY OFFICE CLERK 06/22/2024 8:12 AM SECRETARY OFFICE CLERK us Hermelindo Butler MD LAB BLOOD ORDER ELANA Final Result [facility] Department [place] [address] * Hepatitis C antibody (10/16/2021 9:50 AM CDT) Hep C Ab Nonreactive Nonreactive [facility] Comment:Antibodies to HCV no t detected. Does NOT exclude the possibility of recent exposure to HCV. Blood 10/16/2021 9:50 AM CDT 10/16/2021 11:22 AM CDT Hermelindo dupree MD LAB MICROBIOLOGY - GENERAL ORDERABLES Edited Result - Final 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 ADVANCE DIRECTIVE 11/29/2017 11:05 AM FOX R OF APPRENTICE ARCHITECT ADVANCE DIRECTIVE 11/12/2017 3:59 PM POWER OF APPRENTICE ARCHITECT * Full Code (Latest Code Status on [...] 9:21 AM 05/30/2021 1:44 PM Care Teams Comb Tender Relationship Specialty Start Date End Date Jatin Gamble MD [address] [place] [address] PCP - General 10/07/16 Hermelindo Butler MD [address] [place], [place] [id number] [facility] 12/02/17 Roberto Rojo MD [facility] [address] [place] [address] [facility] 12/02/17 Jatin Gamble MD [address] [place] [address] Referring Physician Internal Medicine 12/02/17 Lyndsey Fagan NP [address] [place] [address] Nurse Practitioner Medical Oncology 08/03/20 Erlin Servin MD [address] [place] [address] Consulting Physician Otolaryngology 10/04/22 [place] [address] [place] [address] Consulting Physician Urology 05/28/23
--- OUTSIDE RECORDS SUMMARY | 2024-09-10 20:39 | XMS_ITS | Encounter Summary ---
Author Organization [facility] Healthcare Address [address] [place] [address] Care Team Providers Care Funeral Home Director Name Role Phone Jatin Gamble MD Primary Care Provider Hermelindo Butler MD Unavailable Roberto Rojo MD Unavailable [phone] Jatin Gamble MD Unavailable [phone] Garry Dukes MD Unavailable [phone] Lyndsey Fagan NP Unavailable [phone] Erlin Servin MD Unavailable Julian Valdez MD Unavailable Encounter Details Date Type Department Care Team (Late st Contact Info) Description 04/29/2022 Community Orders [facility] EpicCare Link Jatin Gamble MD [address] [place] [address] Elevated prostate specific antigen (PSA) (Primary Dx) Social History Tobacco Use Types Packs/Day Years Used Date Smoking Tobacco: Never Smokeless Tobacco: Never Alcohol Use Standard Drinks/Week Comments No 0 (1 standard drink = 0.6 oz pur e alcohol) Sex and Gender Information Value Date Recorded Sex Assigned at Not on file Legal Sex 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 FLUME TENDER Gender Identity Not on file Sexual Orientation [...] documented as of this encounter Care Teams Funeral Home Director Relationship Specialty Start Date End Date Jatin Gamble MD [address] [place] [address] PCP - General 10/07/16 Hermelindo Butler MD [address] [place] [address] [facility] 12/02/17 Roberto Rojo MD [address] [place] [address] [facility] H[facility] Oncology 12/02/17 Jatin Gamble MD [address] [place] [address] Referring Physician Internal Medicine 12/02/17 Garry Dukes MD [address] [place] [address] Referring Physician Urology 12/02/17 05/27/23 Lyndsey Fagan NP [address] [place] [address] Nurse Practitioner Medical Oncology 08/03/20 Erlin Servin MD [address] [place] [address] Consulting Physician Otolaryngology 10/04/22 [place] [address] [place] [address] Consulting Physician Urology 05/28/23 documented as of this encounter
--- OUTSIDE RECORDS SUMMARY | 2024-09-10 20:39 | XMS_ITS | Referral Summary ---
Author Organization [facility] Address [address] [place] [address] Care Team Providers Care Defective Cigarette Slitter Name Role Phone Jatin Gamble MD Primary Care Provider [phone] Hermelindo Butler MD Unavailable Roberto Rojo MD Unavailable [phone] Jatin Gamble MD Unavailable [phone] Lyndsey Fagan NP Unavailable [phone] Erlin Servin MD Unavailable [phone] Julian Valdez MD Unavailable Encounters Date Type Department Care Team Description 09/10/2024 Orders Only Urology Yesika Capone PA Elevated prostate specific antigen (PSA) (Primary Dx) 09/07/2024 Orders Only [facility] Transplant [address] [phone] Hermelindo Hill MD 09/06/2024 Orders Only [facility]plant [address] [place] [phone] Lyndsey Fagan NP 08/31/2024 8:45 AM CDT Clinical Support [facility] - Lab Collection [address] [facility] [address] [place] [address] Multiple myeloma in relapse (HCC); Multiple myeloma not having achieved remission (HCC); Multiple myeloma, remission status unspecified (HCC) 08/31/2024 10:00 AM CDT Infusion [facility] - Infusion [address] [facility] [address] [place] [address] Multiple myeloma in relapse (HCC) (Primary Dx); Multiple myeloma in remission (HCC) 08/31/2024 9:00 AM CDT Office Visit [facility] Transplant [address] [place] [phone] Hermelindo Hill MD Multiple myeloma in relapse (HCC) (Primary Dx); Multiple myeloma in remission (HCC) 08/31/2024 8:15 AM CDT Clinical Support [facility] Oncology Lab [address] [place] [phone] Multiple myeloma not having achieved remission (HCC); Multiple myeloma in remission (HCC) 08/30/2024 Orders Only [facility] ON[facility] Scanning, Provider 08/27/2024 Documentation Nephrology Ani Anne LCSW 08/27/2024 Orders Only [facility] Transplant [address] [place] [phone] Hermelindo Hill MD Multiple myeloma not having achieved remission (HCC) (Primary Dx); JOHN (acute kidney injury) 08/23/2024 11:13 PM CDT - 08/26/2024 4:50 PM CDT Hospital Encounter [address] [phone] Hermelindo Hill MD [place], Thabet J.M., MD JOHN (acute kidney injury) (Primary Dx) Discharge Disposition: Discharge to home or self care 08/25/2024 6:50 AM CDT Ancillary Procedure [facility] Vascular Lab IP 1 [facility] [address] [place] [address] 08/23/2024 7:10 PM CDT - 08/23/2024 11:59 PM CDT Hospital Encounter [facility] Radiology 1 [facility] [place] [address] Discharge Disposition: Discharge to home or self care 08/23/2024 Orders Only [address] [phone] Hermelindo Hill MD 08/23/2024 Orders Only [facility] Transplant [address] [place] [phone] Hermelindo Hill MD Multiple myeloma, remission status unspecified (HCC) (Primary Dx) 08/23/2024 5:24 PM CDT - 08/23/2024 11:59 PM CDT Hospital Encounter [facility] [address] [place] [phone] Hermelindo Hill MD Elevated serum creatinine (Primary Dx); Multiple myeloma, remission status unspecified (HCC) Discharge Disposition: Discharge to home or self care 08/20/2024 Orders Only [facility] Scanning, Provider 08/10/2024 Orders Only [facility] Scanning, Provider 08/06/2024 Telephone [facility] Transplant [address] [place] [phone] Lyndsey Fagan NP 08/06/2024 Orders Only [facility]plant [address] [place] [phone] Lyndsey Fagan NP Multiple myeloma, remission status unspecified (HCC) (Primary Dx) 08/06/2024 1:45 PM SHIPPER AND RECEIVING Clinical Support [facility] - Lab Collection [facility] [address] [address] 08/06/2024 1:00 PM SHIPPER AND RECEIVING - 08/06/2024 11:59 PM SHIPPER AND RECEIVING Hospital Encounter [facility] Radiology 1 [place] [address] Multiple myeloma, remission status unspecified (HCC) Discharge Disposition: Discharge to home or self care 08/06/2024 Orders Only [facility] Transplant [address] [place] [phone] Lyndsey Fagan NP JOHN (acute kidney injury) (Primary Dx) 08/06/2024 Orders Only [facility] Transplant [facility] [address] [phone] Hermelindo Hill MD Multiple myeloma, remission status unspecified (HCC) (Primary Dx) 08/06/2024 7:15 AM SHIPPER AND RECEIVING Clinical Support [facility] - Lab Collection [facility] Floor 6 [place] [address] Multiple myeloma in relapse (HCC) (Primary Dx); Multiple myeloma, remission status unspecified (HCC); JOHN (acute kidney injury) 08/06/2024 8:00 AM SHIPPER AND RECEIVING Infusion [facility] - Infusion [address] [facility] [address] [address] Multiple myeloma not having achieved remission (HCC) (Primary Dx); Hypogammaglobuline hakeem 08/03/2024 Orders Only [facility] Transplant [facility] [address] [phone] Hermelindo Hill MD 08/03/2024 Orders Only [facility] Transplant [address] [place] [phone] Hermelindo Hill MD 08/03/2024 Orders Only [facility]plant [address] [place] [phone] Hermelindo Hill MD 08/03/2024 9:30 AM SHIPPER AND RECEIVING Infusion [facility] - Infusion [address] [facility] Floor 6 [place] [address] Multiple myeloma in relapse (HCC) (Primary Dx); Multiple myeloma in remission (HCC) 08/03/2024 7:30 AM SHIPPER AND RECEIVING Clinical Support [facility] - Lab Collection [address] [place], [place] [address]e Floor 6 [place] [address] Multiple myeloma in remission (HCC); Multiple myeloma, remission status unspecified (HCC); Multiple myeloma in relapse (HCC) 08/03/2024 8:30 AM SHIPPER AND RECEIVING Office Visit [facility]row Transplant [address] [place] [phone] Hermelindo Hill MD Multiple myeloma, remission status unspecified (HCC) (Primary Dx); Multiple myeloma in remission (HCC); Multiple myeloma in relapse (HCC) 08/02/2024 Telephone [facility] Transplant [address] [place] [phone] Lyndsey Fagan NP 07/30/2024 Telephone [facility] Transplant [address] [place] [phone] Hermelindo Hill MD 07/27/2024 Telephone [facility] Transplant [address] [place] [phone] Hermelindo Hill MD 07/26/2024 Orders Only [facility] Transplant [address] [place] [phone] Hermelindo Hill MD 07/26/2024 Orders Only [facility] Transplant [address] [place] [phone] Hermelindo Hill MD 07/26/2024 Telephone [facility]plant [address] [place] [phone] Margaret Kay RMA Medical Question/Miscellan eous 07/13/2024 Telephone [facility]plant [address] [place] [phone] Fadumo Tobar RN 07/13/2024 10:00 AM SHIPPER AND RECEIVING Infusion [facility] - Infusion [address] [place] [phone] Multiple myeloma in relapse (HCC) (Primary Dx); Multiple myeloma in remission (HCC) 07/13/2024 8:00 AM SHIPPER AND RECEIVING Clinical Support [facility] - Lab Collection [address] [place] [address], [place] [address] Multiple myeloma in remission (HCC); Multiple myeloma in relapse (HCC); Multiple myeloma, remission status unspecified (HCC) 07/13/2024 9:00 AM SHIPPER AND RECEIVING Office Visit [facility] Transplant [address] [place] [phone] Hermelindo Hill MD Multiple myeloma, remission status unspecified (HCC) (Primary Dx); Multiple myeloma in remission (HCC); Hypogammaglobuline hakeem 06/22/2024 Orders Only [facility] Transplant [address] [place] [phone] Hermelindo Hill MD 06/22/2024 Orders Only [facility] Transplant [address] [place] [phone] Hermelindo Hill MD Multiple myeloma in remission (HCC) (Primary Dx); Multiple myeloma in relapse (HCC) 06/22/2024 8:30 AM SHIPPER AND RECEIVING Infusion [facility] - Infusion 45[address] [facility] Floor 6 [place] [address] Multiple myeloma, remission status unspecified (HCC) (Primary Dx); Multiple myeloma in remission (HCC); Multiple myeloma in relapse (HCC) 06/22/2024 7:00 AM SHIPPER AND RECEIVING Clinical Support [facility] - Lab Collection [facility] [address] [place] [address] Multiple myeloma, remission status unspecified (HCC); Multiple myeloma in relapse (HCC) 06/22/2024 8:00 AM SHIPPER AND RECEIVING Office Visit [facility]row Transplant [address] [place] [phone] Hermelindo Hill MD Multiple myeloma in relapse (HCC) (Primary Dx); Multiple myeloma, remission status unspecified (HCC); Hypogammaglobuline hakeem; Obesity, morbid (HCC) 06/14/2024 Telephone [facility] Transplant [address] [place] [phone] Margaret Kay RMA Reschedule from Last [...] Inpatient Care Coordination Overview Diagnosis [place] Floor [address] Treatment Plan Clinical Trial [id number] Ramesh Reason for Admission JOHN Transplant/IEC Planning [...] Medical Assistants Post-Discharge Follow-Up Living Situation/Distance from [place], [place] (45 min) Caregiver Self, Lab/Transfusion Frequency Phone: Fax: Venous Access & Care implanted vascular device Local Oncologist Contact Phone: Fax: Post-Discharge Office [place] (H30[place] [facility] [place] Miscellaneous Notes: Problem [...] is a risk of orbital injury and GLASS [employer] MEMBER injury which could result in blindness or [...] this. Assessment & Plan (07/09/2022 7:42 PM SHIPPER AND RECEIVING): I talked with him quite a bit [...] weeks. Assessment & Plan (05/26/2022 4:16 PM SHIPPER AND RECEIVING): He does have pretty significant sinusitis and [...] day. Assessment & Plan (05/26/2022 4:17 PM SHIPPER AND RECEIVING): It is very possible that his cough could be due to sinusitis also. Hopefully that will continue to improve as we treat. He understands. Immunocompromised 11/13/2021 Multiple myeloma not having achieved remission 0 10/28/2021 Cancer Staging:Clinical stage from 10/16/2021:RISS Stage II([id number] (mg/L): 3.7, Albumin (g/dL): 4.2, ISS: Stage [...] and Dexamethasone in June 2021 Clinical trial [id number] initiated on 10/29/21; C46D1 08/03/24. BMT following [...] he got a TTE on 10/19 at [facility] however unclear why not currently in the system - May need to repeat TTE prior to treatment if results unavailable - Continue OI ppx with acyclovir 400mg BID - Begin trial [id number], a Bispecific Antibody Targeting BCMA treatment - [...] he got a TTE on 10/19 at [facility] however unclear why not currently in the system - May need to repeat TTE prior to treatment if results unavailable - Continue OI ppx with acyclovir 400mg BID - Begin trial [id number], a Bispecific Antibody Targeting BCMA treatment - [...] BID Assessment & Plan (05/31/2021 10:51 AM SHIPPER AND RECEIVING): Continue home pepcid, asx Renal mass 05/30/2021 Assessment & Plan (05/31/2021 10:51 AM SHIPPER AND RECEIVING): Admitted for observation after L renal mass [...] 07/17/2023 Assessment & Plan (05/31/2021 10:52 AM SHIPPER AND RECEIVING): Follows with oncology on daratumumab monotherapy -counts [...] blood in urine Follow up pathology from pod[facility]zomc[facility] high-grade papillary urothelial carcinoma (grade 2) --follow [...] blood in urine Follow up pathology from qpbcbutxn-lkc-xesahbwo high-grade papillary urothelial carcinoma (grade 2) --follow [...] supplementation Assessment & Plan (05/31/2021 10:51 AM SHIPPER AND RECEIVING): Stable on home losartan, nebivolol, triamterene-HCTZ Secondary [...] on file Legal Sex 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 SHIPPER AND RECEIVING Gender Identity Not on file Sexual Orientation [...] on file Medical Devices Implanted Type Area Web Applications Architect Device Identifier Shelf Expiration Date Model / [...] Read Routine (OP Routine) 08/06/2024 2:42 PM SHIPPER AND RECEIVING Multiple myeloma, remission status unspecified (HCC) URINALYSIS, MICROSCOPIC ONLY Routine 08/06/2024 9:19 AM SHIPPER AND RECEIVING JOHN (acute kidney injury) PROTEIN / CREATININE RATIO, URINE, RANDOM Routine 08/06/2024 9:19 AM SHIPPER AND RECEIVING JOHN (acute kidney injury) URINALYSIS AND REFLEX TO MICROSCOPIC Routine 08/06/2024 9:19 AM SHIPPER AND RECEIVING JOHN (acute kidney injury) EGFR Routine 08/06/2024 7:43 AM SHIPPER AND RECEIVING Multiple myeloma, remission status unspecified (HCC) DIFFERENTIAL AUTO Routine 08/06/2024 7:4 3 AM SHIPPER AND RECEIVING Multiple myeloma, remission status unspecified (HCC) LACTATE DEHYDROGENASE Routine 08/06/2024 7:43 AM SHIPPER AND RECEIVING Multiple myeloma, remission status unspecified (HCC) CBC WITH AUTO DIFFERENTIAL Routine 08/06/2024 7:43 AM SHIPPER AND RECEIVING Multiple myeloma, remission status unspecified (HCC) COMPREHENSIVE METABOLIC PANEL Routine 08/06/2024 7:43 AM SHIPPER AND RECEIVING Multiple myeloma, remission status unspecified (HCC) LIPID PANEL Routine 08/06/2024 7:43 AM SHIPPER AND RECEIVING Multiple myeloma, remission status unspecified (HCC) PSA DIAGNOSTIC Routine 08/06/2024 7:43 AM SHIPPER AND RECEIVING Multiple myeloma, remission status unspecified (HCC) PROTIME-INR STAT 08/03/2024 9:21 AM SHIPPER AND RECEIVING Multiple myeloma in relapse (HCC) APTT STAT 08/03/2024 9:21 AM SHIPPER AND RECEIVING Multiple myeloma in relapse (HCC) MAGNESIUM STAT 08/03/2024 7:40 AM SHIPPER AND RECEIVING Multiple myeloma in relapse (HCC) GAMMA GT STAT 08/03/2024 7:40 AM SHIPPER AND RECEIVING Multiple myeloma in relapse (HCC) EGFR Routine 08/03/2024 7:40 AM SHIPPER AND RECEIVING Multiple myeloma, remission status unspecified (HCC) DIFFERENTIAL AUTO Routine 08/03/2024 7:4 0 AM SHIPPER AND RECEIVING Multiple myeloma, remission status unspecified (HCC) CBC WITH AUTO DIFFERENTIAL Routine 08/03/2024 7:40 AM SHIPPER AND RECEIVING Multiple myeloma, remission status unspecified (HCC) COMPREHENSIVE METABOLIC PANEL Routine 08/03/2024 7:40 AM SHIPPER AND RECEIVING Multiple myeloma, remission status unspecified (HCC) IGA Routine 08/03/2024 7:40 AM SHIPPER AND RECEIVING Multiple myeloma, remission status unspecified (HCC) IGG Routine 08/03/2024 7:40 AM SHIPPER AND RECEIVING Multiple myeloma, remission status unspecified (HCC) IGM Routine 08/03/2024 7:40 AM SHIPPER AND RECEIVING Multiple myeloma, remission status unspecified (HCC) IMMUNOGLOBULIN FREE LIGHT CHAINS Routine 08/03/2024 7:40 AM SHIPPER AND RECEIVING Multiple myeloma, remission status unspecified (HCC) LACTATE DEHYDROGENASE Routine 08/03/2024 7:40 AM SHIPPER AND RECEIVING Multiple myeloma, remission status unspecified (HCC) PROTEIN ELECTROPHORESIS, WITH REFLEX, SERUM Routine 08/03/2024 7:40 AM SHIPPER AND RECEIVING Multiple myeloma, remission status unspecified (HCC) IMMUNOTYPING Routine 08/03/2024 7:40 AM SHIPPER AND RECEIVING Multiple myeloma, remission status unspecified (HCC) HEMOGLOBIN A1C Routine 08/03/2024 7:40 AM SHIPPER AND RECEIVING Multiple myeloma, remission status unspecified (HCC) URINALYSIS, MICROSCOPIC ONLY Routine 08/03/2024 7:30 AM SHIPPER AND RECEIVING Multiple myeloma, remission status unspecified (HCC) URINE CULTURE Routine 08/03/2024 7:30 AM SHIPPER AND RECEIVING URINALYSIS AND REFLEX TO MICROSCOPIC AND CULTURE Routine 08/03/2024 7:30 AM SHIPPER AND RECEIVING Multiple myeloma, remission status unspecified (HCC) EGFR STAT 07/13/2024 7:40 AM SHIPPER AND RECEIVING Multiple myeloma in relapse (HCC) DIFFERENTIAL AUTO STAT 07/13/2024 7:4 0 AM SHIPPER AND RECEIVING Multiple myeloma in relapse (HCC) IGA Routine 07/13/2024 7:40 AM SHIPPER AND RECEIVING Multiple myeloma, remission status unspecified (HCC) IGG Routine 07/13/2024 7:40 AM SHIPPER AND RECEIVING Multiple myeloma, remission status unspecified (HCC) IGM Routine 07/13/2024 7:40 AM SHIPPER AND RECEIVING Multiple myeloma, remission status unspecified (HCC) IMMUNOGLOBULIN FREE LIGHT CHAINS Routine 07/13/2024 7:40 AM SHIPPER AND RECEIVING Multiple myeloma, remission status unspecified (HCC) PROTEIN ELECTROPHORESIS, WITH REFLEX, SERUM Routine 07/13/2024 7:40 AM SHIPPER AND RECEIVING Multiple myeloma, remission status unspecified (HCC) IMMUNOTYPING Routine 07/13/2024 7:40 AM SHIPPER AND RECEIVING Multiple myeloma, remission status unspecified (HCC) LACTATE DEHYDROGENASE Routine 07/13/2024 7:40 AM SHIPPER AND RECEIVING Multiple myeloma in relapse (HCC) GAMMA GT STAT 07/13/2024 7:40 AM SHIPPER AND RECEIVING Multiple myeloma in relapse (HCC) MAGNESIUM STAT 07/13/2024 7:40 AM SHIPPER AND RECEIVING Multiple myeloma in relapse (HCC) COMPREHENSIVE METABOLIC PANEL STAT 07/13/2024 7:40 AM SHIPPER AND RECEIVING Multiple myeloma in relapse (HCC) CBC WITH AUTO DIFFERENTIAL STAT 07/13/2024 7:40 AM SHIPPER AND RECEIVING Multiple myeloma in relapse (HCC) APTT STAT 07/13/2024 7:24 AM SHIPPER AND RECEIVING Multiple myeloma in relapse (HCC) PROTIME-INR STAT 07/13/2024 7:24 AM SHIPPER AND RECEIVING Multiple myeloma in relapse (HCC) IMMUNOTYPING Routine 06/22/2024 7:20 AM SHIPPER AND RECEIVING Multiple myeloma, remission status unspecified (HCC) EGFR Routine 06/22/2024 7:20 AM SHIPPER AND RECEIVING Multiple myeloma, remission status unspecified (HCC) DIFFERENTIAL AUTO Routine 06/22/2024 7:2 0 AM SHIPPER AND RECEIVING Multiple myeloma, remission status unspecified (HCC) CBC WITH AUTO DIFFERENTIAL Routine 06/22/2024 7:20 AM SHIPPER AND RECEIVING Multiple myeloma, remission status unspecified (HCC) COMPREHENSIVE METABOLIC PANEL Routine 06/22/2024 7:20 AM SHIPPER AND RECEIVING Multiple myeloma, remission status unspecified (HCC) IGA Routine 06/22/2024 7:20 AM SHIPPER AND RECEIVING Multiple myeloma, remission status unspecified (HCC) IGG Routine 06/22/2024 7:20 AM SHIPPER AND RECEIVING Multiple myeloma, remission status unspecified (HCC) IGM Routine 06/22/2024 7:20 AM SHIPPER AND RECEIVING Multiple myeloma, remission status unspecified (HCC) IMMUNOGLOBULIN FREE LIGHT CHAINS Routine 06/22/2024 7:20 AM SHIPPER AND RECEIVING Multiple myeloma, remission status unspecified (HCC) LACTATE DEHYDROGENASE Routine 06/22/2024 7:20 AM SHIPPER AND RECEIVING Multiple myeloma, remission status unspecified (HCC) PROTEIN ELECTROPHORESIS, WITH REFLEX, SERUM Routine 06/22/2024 7:20 AM SHIPPER AND RECEIVING Multiple myeloma, remission status unspecified (HCC) MAGNESIUM STAT 06/22/2024 7:20 AM SHIPPER AND RECEIVING Multiple myeloma in relapse (HCC) GAMMA GT STAT 06/22/2024 7:20 AM SHIPPER AND RECEIVING Multiple myeloma in relapse (HCC) PROTIME-INR STAT 06/22/2024 7:20 AM SHIPPER AND RECEIVING Multiple myeloma in relapse (HCC) APTT STAT 06/22/2024 7:20 AM SHIPPER AND RECEIVING Multiple myeloma in relapse (HCC) HEPATITIS C ANTIBODY STAT 10/16/2021 9:50 AM CDT Multiple myeloma in relapse (HCC) from Last 3 Months or Most Recently Relevant to Health Maintenance Results * Differential, auto (08/31/2024 8:12 AM CDT) Neutrophil abs 6.0 1.5 - 6.5 K/cumm Comment:Testing performed by : [facility], [address] [place] [phone] Lymphocyte abs 1.0 0.8 - 3.3 K/cumm [facility] Comment:Testing performed by : [facility], [address] [place] [phone] Monocyte abs 0.6 0.2 - 0.8 K/cumm [facility] Comment:Testing performed by : [facility], [address] [place] [phone] Eosinophil abs 0.3 0.0 - 0.5 K/cumm [facility] Comment:Testing performed by : [facility], [address] [place] [phone] Basophil abs 0.1 0.0 - 0.1 K/cumm [facility] Comment:Testing performed by : [facility], [address] [place], [place] [phone] Neutrophil pct 75.2 % [facility] Comment: Interpretive Data Percent cell count reference ranges are not reported, since discordance with absolute values may lead to misinterpretation of CBC data. Current Interpretive Data was last revised on 2017. Testing performed by: [facility], [address] [place] [phone] Lymphocyte pct 12.4 % [facility] Comment: Interpretive Data Percent cell count reference ranges are not reported, since discordance with absolute values may lead to misinterpretation of CBC data. Current Interpretive Data was last revised on 2017. Testing performed by: [facility], [address] [place] [phone] Monocyte pct 7.9 % [facility] Comment: Interpretive Data Percent cell count reference ranges are not reported, since discordance with absolute values may lead to misinterpretation of CBC data. Current Interpretive Data was last revised on 2017. Testing performed by: [facility], [address] [place] [phone] Eosinophil pct 3.9 % [facility] Comment: Interpretive Data Percent cell count reference ranges are not reported, since discordance with absolute values may lead to misinterpretation of CBC data. Current Interpretive Data was last revised on 2017. Testing performed by: [facility], [address] [place], [place] [phone] Basophil pct 0.6 % MT SUAREZ Comment: Interpretive Data Percent cell count reference ranges are not reported, since discordance with absolute values may lead to misinterpretation of CBC data. Current Interpretive Data was last revised on 2017. Testing performed by: [facility], [address] [place] [phone] Blood 08/31/2024 8:12 AM CDT 08/31/2024 8:16 AM CDT us Hermelindo Butler MD LAB BLOOD ORDER ELANA Final Result MT SU[facility] Department [place] [address] * (ABNORMAL) CBC with auto differential (08/31/2024 8:12 AM CDT) WBC 8.0 3.8 - 9.9 K/cumm Comment:Testing performed by : [facility], [address] [place] [address] Hgb 12.7(L) 13.0 - 17.5 g/dL MT SUAREZ Comment:Testing performed by : [facility], [address] [place] [address] Hct 37.8(L) 38.9 - 50.3 % MT SUAREZ Comment:Testing performed by : [facility], [address] [place] [address] Plt 176 150 - 400 K/cumm MT SUAREZ Comment:Testing performed by : [facility], [address] [place] [address] MPV 7.7 6.8 - 10.4 fL MT SUAREZ Comment:Testing performed by : [facility], [address] [place] [address] RBC 4.07(L) 4.30 - 5.80 M/cumm MT SUAREZ Comment:Testing performed by : [facility], [address] [place], [place] [phone] MCV 92.8 81.3 - 96.4 fL MT SU[facility]Z Comment:Testing performed by : [facility] [facility], [address] [place], [place] [id number] MCH 31.2 27.1 - 33.3 pg MT SUAREZ Comment:Testing performed by : [facility], [address] [place], [place] [id number] MCHC 33.6 32.3 - 35.7 g/dL MT SUAREZ Comment:Testing performed by : [facility], [address] [place], [place] [id number] RDW CV 16.1(H) 11.1 - 14.9 % MT SUAREZ Comment:Testing performed by : [facility], [address] [place], [place] [id number] NRBC abs 0.00 0.00 - 0.01 K/cumm MT SUAREZ Comment:Testing performed by : [facility], [address] [place], [place] [id number] Blood 08/31/2024 8:12 AM CDT 08/31/2024 8:16 AM CDT Hermelindo Butler MD LAB BLOOD ORDER ELANA Final Result [facility] Department [place] [address] * Type and screen (08/31/2024 8:12 AM CDT) ABO Rh A Positive Yehuda, indirect Negative MT SUAREZ Comment:Patient has previous antibody history Blood 08/31/2024 8:12 AM CDT 08/31/2024 8:25 AM CDT Narrative MT SAUREZ - 08/31/2024 9:28 AM CDT Has the patient had Daratumumab or Isatuximab in the past 6 months?->Unknown Hermelindo Butler MD LAB BLOOD BANK TEST ORDERABLES Final Result Performing Organization Address City/[facility]/ZIP Co de Phone Number MT SUAREZ Manoj [facility] [place] [address] * Immunotyping, serum with interpretation (08/31/2024 8:12 AM CDT) Immunosubtraction Please see comment Comment: NO PARAPROTEIN DETECTED Reviewed and signed by Ivan Sims MD, PhD 09/01/2024 Blood 08/31/2024 8:12 AM CDT 08/31/2024 9:34 AM CDT Hermelindo Butler MD LAB BLOOD ORDER ELANA Final Result Performing Organization Address [facility] de Phone Number [facility] Manoj [facility] [place] [address] * (ABNORMAL) eGFR (08/31/2024 8:12 AM CDT) [...] ORDER ELANA Final Result MT SUAREZ One [facility] Department [place] [address] * (ABNORMAL) Immunoglobulin free light chains (08/31/2024 8:12 AM CDT) Pathologist [facility]/Lambda ratio [facility] See Comment 0.26 - 1.65 Comment: Unable to calculate exact result. Interpretive Data The Binding Site FreeLite assay procedure was used. Results from different manufacturers or methods may not be comparable. Serial testing should be performed using the same methods and instrumentation. Current Interpretive Data was last revised on 2023. [facility] free light chain [facility] <0.06(L) 0.33 - 1.94 mg/dL [facility] Comment: Interpretive Data The Binding Site FreeLite assay procedure was used. Results from different manufacturers or methods may not be comparable. Serial testing should be performed using the same methods and instrumentation. Current Interpretive Data was last revised on 2023. Lambda free light chain [facility] <0.14(L) 0.57 - 2.63 mg/dL [facility] Comment: Interpretive Data The Binding Site FreeLite assay procedure was used. Results from different manufacturers or methods may not be comparable. Serial testing should be performed using the same methods and instrumentation. Current Interpretive Data was last revised on 2023. Blood 08/31/2024 8:12 AM CDT 08/31/2024 9:34 AM CDT us Hermelindo Butler MD LAB BLOOD ORDER ELANA Final Result MT SUAREZ One [facility] Department [place] [address] * (ABNORMAL) aPTT (08/31/2024 8:12 AM CDT) [...] Final Result Performing Organization Address [facility] de Phone Number [facility] [place] [address] * Protime-INR (08/31/2024 8:12 AM CDT) Pathologist [facility] PT 11.4 9.7 - 13.0 sec INR 1.05 0.90 - 1.20 [facility] Comment: Interpretive data Oral anticoagulant therapeutic ranges: [...] Final Result Performing Organization Address [facility] Co de Phone Number [facility] [place] [address] * (ABNORMAL) Protein electrophoresis with reflex, serum with interpretation (08/31/2024 8:12 AM CDT) Pathologist [facility] Protein, sr 6.0(L) 6.2 - 8.2 g/dL Albumin 3.9 3.2 - 5.0 g/dL [facility] Alpha-1 globulin 0.4 0.2 - 0.4 g/dL [facility] Alpha-2 globulin 0.7 0.5 - 1.0 g/dL [facility] Beta-1 globulin 0.5 0.3 - 0.6 g/dL [facility] Beta-2 globulin 0.3 0.2 - 0.6 g/dL [facility] Gamma globulin 0.2(L) 0.5 - 1.7 g/dL [facility] SPEP interp Please see comment [facility] Comment: No apparent monoclonal peak Decreased gamma globulins Electrophoretic pattern appears similar to previous sample 08/24/2024 See immunotyping for further information Reviewed and signed by Ivan Sims MD, PhD 09/01/2024 Blood 08/31/2024 8:12 AM CDT 08/31/2024 9:34 AM CDT Hermelindo Butler MD LAB BLOOD ORDER ELANA Final Result [facility] Department [place] [address] * Magnesium (08/31/2024 8:12 AM CDT) Pathologist [facility] Magnesium 1.8 1.4 - 2.5 mg/dL Blood 08/31/2024 8:12 AM CDT 08/31/2024 8:20 AM CDT Hermelindo Butler MD LAB BLOOD ORDER ELANA Final Result [facility] Department [place] [address] * Lactate dehydrogenase (LD) (08/31/2024 8:12 AM CDT) Lactate dehydrogenase (LDH) 155 100 - 250 Units/L Blood 08/31/2024 8:12 AM CDT 08/31/2024 8:20 AM CDT Hermelindo Butler MD LAB BLOOD ORDER ELANA Final Result Performing Organization Address City/[facility] Co de Phone Number [facility] Department [place] [address] * Gamma GT (08/31/2024 8:12 AM CDT) GGT 27 10 - 50 Units/L Blood 08/31/2024 8:12 AM CDT 08/31/2024 8:20 AM CDT Hermelindo Butler MD LAB BLOOD ORDER ELANA Final Result Performing Organization Address [facility] de Phone Number [facility] Department [place] [address] * (ABNORMAL) IgA (08/31/2024 8:12 AM CDT) [facility] Immunoglobulin A <50(L) 70 - 400 mg/dL Blood 08/31/2024 8:12 AM CDT 08/31/2024 8:38 AM CDT us Hermelindo Butler MD LAB BLOOD ORDER ELANA Final Result Performing Organization Address [facility] de Phone Number [facility] Department [place] [address] * (ABNORMAL) IgM (08/31/2024 8:12 AM CDT) Immunoglobulin M <25(L) 40 - 230 mg/dL Blood 08/31/2024 8:12 AM CDT 08/31/2024 8:38 AM CDT Hermelindo Butler MD LAB BLOOD ORDER ELANA Final Result Performing Organization Address City/[facility] Co de Phone Number [facility] [place] [address] * (ABNORMAL) IgG (08/31/2024 8:12 AM CDT) Pathologist [facility] Immunoglobulin G <300(L) 700 - 1,600 mg/dL Blood 08/31/2024 8:12 AM CDT 08/31/2024 8:38 AM CDT Hermelindo Butler MD LAB BLOOD ORDER ELANA Final Result [facility] One [facility] Department [place] [address] * (ABNORMAL) Comprehensive metabolic panel (08/31/2024 8:12 AM CDT) [facility] Sodium 141 135 - 145 mmol/L Potassium, pl 4.0 3.3 - 4.9 mmol/L [facility] Chloride 103 97 - 110 mmol/L [facility] CO2 29 22 - 32 mmol/L [facility] Anion gap 9 2 - 15 mmol/L [facility] BUN 31(H) 6 - 25 mg/dL [facility] Creatinine 1.61(H) 0.80 - 1.30 mg/dL [facility] Glucose 114 70 - 199 mg/dL [facility] Comment: Interpretive Data Fasting glucose >/= 126 [...] 2022. Calcium 9.4 8.5 - 10.3 mg/dL [facility] Bilirubin, total 0.4 0.1 - 1.2 mg/dL [facility] Protein, pl 6.5 6.5 - 8.5 g/dL [facility] Albumin 4.1 3.5 - 5.0 g/dL [facility] Alk phos 65 40 - 130 Units/L [facility] ALT 16 7 - 55 Units/L [facility] AST 15 10 - 50 Units/L [facility] Blood 08/31/2024 8:12 AM CDT 08/31/2024 8:20 AM CDT us Hermelindo Butler MD LAB BLOOD ORDER ELANA Final Result [facility] One [facility] Department [place] [address] * SCAN - LABS (08/30/2024) us Provider [...] Hargrove MD LAB BLOOD ORDERABLES Final Result [facility] One [facility] [place] [address] * (ABNORMAL) Differential, auto (08/26/2024 12:25 AM CDT) Neutrophil abs 5.3 1.5 - 6.5 K/cumm Imm gran abs 0.0 0.0 - 0.1 K/cumm [facility] Lymphocyte abs 0.7(L) 0.8 - 3.3 K/cumm [facility] Monocyte abs 0.6 0.2 - 0.8 K/cumm [facility] Eosinophil abs 0.3 0.0 - 0.5 K/cumm [facility] Basophil abs 0.0 0.0 - 0.1 K/cumm [facility] Neutrophil pct 75.7 % [facility] Comment: Interpretive Data Percent cell count reference ranges are not reported, since discordance with absolute values may lead to misinterpretation of CBC data. Current Interpretive Data was last revised on 2017. Imm gran pct 0.4 % [facility] Comment: Interpretive Data Percent cell count reference ranges are not reported, since discordance with absolute values may lead to misinterpretation of CBC data. Current Interpretive Data was last revised on 2017. Lymphocyte pct 10.4 % [facility] Comment: Interpretive Data Percent cell count reference ranges are not reported, since discordance with absolute values may lead to misinterpretation of CBC data. Current Interpretive Data was last revised on 2017. Monocyte pct 9.0 % [facility] Comment: Interpretive Data Percent cell count reference ranges are not reported, since discordance with absolute values may lead to misinterpretation of CBC data. Current Interpretive Data was last revised on 2017. Eosinophil pct 4.4 % [facility] Comment: Interpretive Data Percent cell count reference ranges are not reported, since discordance with absolute values may lead to misinterpretation of CBC data. Current Interpretive Data was last revised on 2017. Basophil pct 0.1 % [facility] Comment: Interpretive Data Percent cell count reference ranges are not reported, since discordance with absolute values may lead to misinterpretation of CBC data. Current Interpretive Data was last revised on 2017. Blood 08/26/2024 12:2 5 AM CDT 08/26/2024 12:35 AM CDT Karlos Hargrove MD LAB BLOOD ORDERABLES Final Result Performing Organization Address City/[facility] Co de Phone Number [facility] [place] [address] * (ABNORMAL) CBC with auto differential (08/26/2024 12:25 AM CDT) WBC 7.0 3.8 - 9.9 K/cumm Hgb 11.8(L) 13.0 - 17.5 g/dL [facility] Hct 35.7(L) 38.9 - 50.3 % [facility] Plt 131(L) 150 - 400 K/cumm [facility] MPV 9.2 9.1 - 12.3 fL [facility] RBC 3.83(L) 4.30 - 5.80 M/cumm [facility] MCV 93.2 81.3 - 96.4 fL [facility] MCH 30.8 27.1 - 33.3 pg [facility] MCHC 33.1 32.3 - 35.7 g/dL [facility] RDW CV 15.4(H) 11.1 - 14.9 % [facility] RDW SD 51.7(H) 35.7 - 48.1 fL [facility] NRBC abs 0.00 0.00 - 0.01 K/cumm [facility] Blood 08/26/2024 12:2 5 AM CDT 08/26/2024 12:35 AM CDT Karlos Hargrove MD LAB BLOOD ORDERABLES Final Result Performing Organization Address City/[facility]/ZIP Co de Phone Number [facility] [place] [address] * Type and screen (08/26/2024 12:25 AM CDT) Yehuda, indirect Negative Comment:Patient has previous antibody history ABO Rh A Positive [facility] Blood 08/26/2024 12:2 5 AM CDT 08/26/2024 12:38 AM CDT Narrative [facility] - 08/26/2024 2:23 AM CDT Has the patient had Daratumumab or Isatuximab in the past 6 months?->Unknown us Karlos Hargrove MD LAB BLOOD BANK TEST ORDERA BLES Final Result Performing Organization Address City/[facility]/ZIP Co de Phone Number [facility] Department [place] [address] * (ABNORMAL) Uric acid (08/26/2024 12:25 AM CDT) Pathologist [facility] Uric acid 8.6(H) 3.0 - 8.0 mg/dL Blood 08/26/2024 12:2 5 AM CDT 08/26/2024 12:35 AM CDT Narrative [facility] - 08/26/2024 1:10 AM CDT Friday and only. Morning draw. . us Karlos Hargrove MD LAB BLOOD ORDERABLES Final Result [facility] Department [place] [address] * Phosphorus (08/26/2024 12:25 AM CDT) Phosphorus, pl 3.6 2.3 - 4.5 mg/dL Blood 08/26/2024 12:2 5 AM CDT 08/26/2024 12:35 AM CDT us Karlos Hargrove MD LAB BLOOD ORDERABLES Final Result Performing Organization Address [facility] Co de Phone Number [facility] [place] [address] * Magnesium (08/26/2024 12:25 AM CDT) [facility] Magnesium 1.7 1.4 - 2.5 mg/dL Blood 08/26/2024 12:2 5 AM CDT 08/26/2024 12:35 AM CDT Karlos Hargrove MD LAB BLOOD ORDERABLES Final Result Performing Organization Address [facility] de Phone Number [facility] [place] [address] * Lactate dehydrogenase (LD) (08/26/2024 12:25 AM CDT) [facility] Lactate dehydrogenase (LDH) 167 100 - 250 Units/L Blood 08/26/2024 12:2 5 AM CDT 08/26/2024 12:35 AM CDT Narrative [facility] - 08/26/2024 1:10 AM CDT Friday and only. Morning draw. Karlos Hargrove MD LAB BLOOD ORDERABLES Final Result Performing Organization Address [facility] Co de Phone Number [facility] Department [place] [address] * (ABNORMAL) Comprehensive metabolic panel (08/26/2024 12:25 AM CDT) [facility] Sodium 148(H) 135 - 145 mmol/L Potassium, pl 3.4 3.3 - 4.9 mmol/L [facility] Chloride 108 97 - 110 mmol/L [facility] CO2 28 22 - 32 mmol/L [facility] Anion gap 12 2 - 15 mmol/L [facility] BUN 35(H) 6 - 25 mg/dL [facility] Creatinine 2.27(H) 0.80 - 1.30 mg/dL [facility] Glucose 107 70 - 199 mg/dL [facility] Comment: Interpretive Data Fasting glucose >/= 126 [...] 2022. Calcium 8.9 8.5 - 10.3 mg/dL [facility] Bilirubin, total 0.6 0.1 - 1.2 mg/dL [facility] Protein, pl 5.9(L) 6.5 - 8.5 g/dL [facility] Albumin 3.7 3.5 - 5.0 g/dL [facility] Alk phos 60 40 - 130 Units/L [facility] ALT 15 7 - 55 Units/L [facility] AST 13 10 - 50 Units/L [facility] Blood 08/26/2024 12:2 5 AM CDT 08/26/2024 12:35 AM CDT Karlos Hargrove MD LAB BLOOD ORDERABLES Final Result Performing Organization Address City/State/[facility] Co de Phone Number [facility] One [facility] Department [place] [address] * US Vein Duplex Lower Extremity Bilateral Complete (08/25/2024 9:30 AM CDT) Anatomical Region Laterality Modality Vascular Bilateral Ultrasound 08/25/2024 8:37 AM CDT Narrative 08/27/2024 11:10 AM CDT [facility] - Department of Vascular Surgery, Vascular Laboratory [address] [place] [address] Lower Extremity Venous Ultrasound Report Patient Name: BUFFY VALLE B : 1950 (73y 8m) Study Date: 08/25/2024 8:37:41 AM Gender: M Tech: JOSE Location: [id number] Ref Provider: OLGA KEITH Quality: Adequate Order Provider: OLGA KEITH PROCEDURES: Vascular Report: Venous Duplex imaging was performed bilaterally in the lower extremities. The common femoral, femoral, popliteal, posterior tibial, peroneal veins were evaluated for patency, spontaneity and phasicity with Doppler, compression and augmentation maneuvers. Great saphenous vein proximal at the junction was evaluated with compression maneuvers. INDICATIONS: Localized edema. FINDINGS: Performing Technical Specialist: Farzana Owens RVT. Bilateral: Venous Doppler signals [...] above. Electronically Signed By: Cesar Cabello MD [facility] [phone] 08/27/2024 10:10:26 AM CDT Procedure Note Cesar Cabello MD - 08/27/2024 [facility] - Department of Vascular Surgery,Vascular Laboratory [address] [place] [id number] Lower Extremity Venous Ultrasound Report Patient Name: BUFFY VALLE B : 1950 (73y 8m) Study Date: 08/25/2024 8:37:41 AM Gender: M Tech: Location: [id number] Ref Provider: OLGA KEITH Quality: Adequate Order Provider: OLGA KEITH PROCEDURES: Vascular Report: Venous Duplex imaging was performed bilaterally in the lower extremities.The common femoral, femoral, popliteal, posterior tibial, peroneal veins wereevaluated for patency, spontaneity and phasicity with Doppler, compression and augmentationmaneuvers. Great saphenous vein proximal at the junction was evaluated with compressionmaneuvers. INDICATIONS: Localized edema. FINDINGS: Performing Technical Specialist: Farzana Owens RVT. Bilateral: Venous Doppler signals [...] above. Electronically Signed By: Cesar Cabello MD [facility] [phone] 08/27/2024 10:10:26 AM CDT Olga Keith MD [facility] US PROCEDURES Final [...] Hargrove MD LAB BLOOD ORDERABLES Final Result [facility] One [facility] Department [place] [address] * (ABNORMAL) Differential, auto (08/25/2024 12:34 AM CDT) Neutrophil abs 5.2 1.5 - 6.5 K/cumm Imm gran abs 0.1 0.0 - 0.1 K[facility] Lymphocyte abs 0.5(L) 0.8 - 3.3 K/cumm [facility] Monocyte abs 0.5 0.2 - 0.8 K/cumm [facility] Eosinophil abs 0.4 0.0 - 0.5 K/cumm [facility] Basophil abs 0.0 0.0 - 0.1 K/cumm [facility] Neutrophil pct 77.6 % [facility] Comment: Interpretive Data Percent cell count reference ranges are not reported, since discordance with absolute values may lead to misinterpretation of CBC data. Current Interpretive Data was last revised on 2017. Imm gran pct 0.7 % [facility] Comment: Interpretive Data Percent cell count reference ranges are not reported, since discordance with absolute values may lead to misinterpretation of CBC data. Current Interpretive Data was last revised on 2017. Lymphocyte pct 7.9 % [facility] Comment: Interpretive Data Percent cell count reference ranges are not reported, since discordance with absolute values may lead to misinterpretation of CBC data. Current Interpretive Data was last revised on 2017. Monocyte pct 7.5 % [facility] Comment: Interpretive Data Percent cell count reference ranges are not reported, since discordance with absolute values may lead to misinterpretation of CBC data. Current Interpretive Data was last revised on 2017. Eosinophil pct 6.0 % [facility] Comment: Interpretive Data Percent cell count reference ranges are not reported, since discordance with absolute values may lead to misinterpretation of CBC data. Current Interpretive Data was last revised on 2017. Basophil pct 0.3 % [facility] Comment: Interpretive Data Percent cell count reference ranges are not reported, since discordance with absolute values may lead to misinterpretation of CBC data. Current Interpretive Data was last revised on 2017. Blood 08/25/2024 12:3 4 AM CDT 08/25/2024 12:57 AM CDT Karlos Hargrove MD LAB BLOOD ORDERABLES Final Result [facility] One [facility] Department [place] [address] * (ABNORMAL) CBC with auto differential (08/25/2024 12:34 AM CDT) WBC 6.7 3.8 - 9.9 K/cumm Hgb 11.2(L) 13.0 - 17.5 g/dL [facility] Hct 33.3(L) 38.9 - 50.3 % [facility] Plt 136(L) 150 - 400 K/cumm [facility] MPV 9.5 9.1 - 12.3 fL [facility] RBC 3.57(L) 4.30 - 5.80 M/cumm [facility] MCV 93.3 81.3 - 96.4 fL [facility] MCH 31.4 27.1 - 33.3 pg [facility] MCHC 33.6 32.3 - 35.7 g/dL [facility] RDW CV 15.3(H) 11.1 - 14.9 % [facility] RDW SD 51.0(H) 35.7 - 48.1 fL [facility] NRBC abs 0.00 0.00 - 0.01 K/cumm [facility] Blood 08/25/2024 12:3 4 AM CDT 08/25/2024 12:57 AM CDT us Karlos Hargrove MD LAB BLOOD ORDERABLES Final Result Performing Organization Address City/[facility] Co de Phone Number [facility] [place] [address] * Phosphorus (08/25/2024 12:34 AM CDT) [facility] Phosphorus, pl 3.7 2.3 - 4.5 mg/dL Blood 08/25/2024 12:3 4 AM CDT 08/25/2024 12:55 AM CDT us Karlos Hargrove MD LAB BLOOD ORDERABLES Final Result Performing Organization Address [facility] Co de Phone Number [facility] [place] [address] * Magnesium (08/25/2024 12:34 AM CDT) [facility] Magnesium 1.9 1.4 - 2.5 mg/dL Blood 08/25/2024 12:3 4 AM CDT 08/25/2024 12:55 AM CDT us Karlos Hargrove MD LAB BLOOD ORDERABLES Final Result Performing Organization Address [facility] de Phone Number [facility] [place] [address] * (ABNORMAL) Comprehensive metabolic panel (08/25/2024 12:34 AM CDT) [facility] Sodium 147(H) 135 - 145 mmol/L Potassium, pl 3.2(L) 3.3 - 4.9 mmol/L [facility] Chloride 109 97 - 110 mmol/L [facility] CO2 26 22 - 32 mmol/L [facility] Anion gap 12 2 - 15 mmol/L [facility] BUN 47(H) 6 - 25 mg/dL [facility] Creatinine 2.74(H) 0.80 - 1.30 mg/dL [facility] Glucose 154 70 - 199 mg/dL [facility] Comment: Interpretive Data Fasting glucose >/= 126 [...] 2022. Calcium 8.4(L) 8.5 - 10.3 mg/dL [facility] Bilirubin, total 0.4 0.1 - 1.2 mg/dL [facility] Protein, pl 5.9(L) 6.5 - 8.5 g/dL [facility] Albumin 3.9 3.5 - 5.0 g/dL [facility] Alk phos 61 40 - 130 Units/L [facility] ALT 18 7 - 55 Units/L [facility] AST 17 10 - 50 Units/L [facility] Blood 08/25/2024 12:3 4 AM CDT 08/25/2024 12:55 AM CDT Karlos Hargrove MD LAB BLOOD ORDERABLES Final Result [facility] One [facility] [place] [address] * Sodium, urine, random (08/24/2024 5:16 PM CDT) Sodium, ur 44 mmol/L Comment: Interpretive Data No reference range established. Current interpretive data was last revised 2018. Urine 08/24/2024 5:16 PM CDT 08/24/2024 5:31 PM CDT us Olga Keith MD LAB URINE ORDERABLES Final Resul t MT Aranda [facility] [place] [address] * CT Abdomen Pelvis WO Contrast (08/24/2024 [...] [facility] Neutrophil pct 73.7 % [facility] Comment: Interpretive Data Percent cell count reference ranges are not reported, since discordance with absolute values may lead to misinterpretation of CBC data. Current Interpretive Data was last revised on 2017. Imm gran pct 0.6 % [facility] Comment: Interpretive Data Percent cell count reference ranges are not reported, since discordance with absolute values may lead to misinterpretation of CBC data. Current Interpretive Data was last revised on 2017. Lymphocyte pct 10.0 % [facility] Comment: Interpretive Data Percent cell count reference ranges are not reported, since discordance with absolute values may lead to misinterpretation of CBC data. Current Interpretive Data was last revised on 2017. Monocyte pct 8.3 % [facility] Comment: Interpretive Data Percent cell [...] BLOOD ORDERABLES Final Result Performing Organization Address City/[facility]/ZIP Co de Phone Number [facility] Department [place] [address] * (ABNORMAL) CBC with auto differential (08/24/2024 2:30 AM CDT) WBC 6.6 3.8 - 9.9 K/cumm Hgb 10.9(L) 13.0 - 17.5 g/dL [facility] Hct 33.1(L) 38.9 - 50.3 % [facility] Plt 130(L) 150 - 400 K/cumm [facility] MPV 10.0 9.1 - 12.3 fL [facility] RBC 3.50(L) 4.30 - 5.80 M/cumm [facility] MCV 94.6 81.3 - 96.4 fL [facility] MCH 31.1 27.1 - 33.3 pg [facility] MCHC 32.9 32.3 - 35.7 g/dL [facility] RDW CV 15.3(H) 11.1 - 14.9 % [facility] RDW SD 51.8(H) 35.7 - 48.1 fL [facility] NRBC abs 0.00 0.00 - 0.01 K/cumm [facility] Blood 08/24/2024 2:30 AM CDT 08/24/2024 1:28 AM CDT Karlos Hargrove MD LAB BLOOD ORDERABLES Final Result Performing Organization Address City/[facility]/ZIP Co de Phone Number [facility] Department [place] [address] * (ABNORMAL) eGFR (08/24/2024 1:12 AM CDT) [...] Hargrove MD LAB BLOOD ORDERABLES Final Result [facility] [place] [address] * aPTT (08/24/2024 1:12 AM CDT) aPTT [...] BLOOD ORDERABLES Final Result Performing Organization Address [facility] Co de Phone Number [facility] [place] [address] * Protime-INR (08/24/2024 1:12 AM CDT) PT 11.7 9.7 - 13.0 sec INR 1.08 0.90 - 1.20 [facility] Comment: Interpretive data Oral anticoagulant therapeutic ranges: Venous thromboembolism prophylaxis or treatment: 2.0-3.0 CARDIOLOGY Standard range: 2.0-3.0 High-intensity range: 2.5-3.5 Refer to indication-specific guidelines for appropriate target ranges for prosthetic heart valve replacement. Current interpretive data was last revised on 2019. Blood 08/24/2024 1:12 AM CDT 08/24/2024 1:53 AM CDT Karlos Hargrove MD LAB BLOOD ORDERABLES Final Result Performing Organization Address [facility] [place] [address] * Type and screen (08/24/2024 1:12 AM CDT) Yehuda, indirect Negative Comment:Patient has previous antibody history ABO Rh A Positive [facility] Blood 08/24/2024 1:12 AM CDT 08/24/2024 1:36 AM CDT Narrative [facility] - 08/24/2024 2:36 AM CDT Has the patient had Daratumumab or Isatuximab in the past 6 months?->Unknown Karlos Hargrove MD LAB BLOOD BANK TEST ORDERA BLES Final Result Performing Organization Address City/[facility] Co de Phone Number [facility] [place] [address] * (ABNORMAL) Uric acid (08/24/2024 1:12 AM CDT) Pathologist [facility] Uric acid 9.5(H) 3.0 - 8.0 mg/dL Blood 08/24/2024 1:12 AM CDT 08/24/2024 1:35 AM CDT Narrative [facility] - 08/24/2024 2:47 AM CDT Friday and only. Morning draw. . us Karlos Hargrove MD LAB BLOOD ORDERABLES Final Result Performing Organization Address City/[facility] Co de Phone Number [facility] [place] [address] * Phosphorus (08/24/2024 1:12 AM CDT) [facility] Phosphorus, pl 4.5 2.3 - 4.5 mg/dL Blood 08/24/2024 1:12 AM CDT 08/24/2024 1:35 AM CDT us Karlos Hargrove MD LAB BLOOD ORDERABLES Final Result Performing Organization Address City/[facility] Co de Phone Number [facility] Department [place] [address] * Magnesium (08/24/2024 1:12 AM CDT) [facility] Magnesium 2.0 1.4 - 2.5 mg/dL Blood 08/24/2024 1:12 AM CDT 08/24/2024 1:35 AM CDT us Karlos Hargrove MD LAB BLOOD ORDERABLES Final Result Performing Organization Address City/[facility] Co de Phone Number [facility] [place] [address] * Lactate dehydrogenase (LD) (08/24/2024 1:12 AM CDT) Lactate dehydrogenase (LDH) 226 100 - 250 Units/L Blood 08/24/2024 1:12 AM CDT 08/24/2024 1:35 AM CDT Narrative [facility] - 08/24/2024 2:47 AM CDT Friday and only. Morning draw. Karlos Hargrove MD LAB BLOOD ORDERABLES Final Result [facility] One [facility] Department [place] [address] * (ABNORMAL) Comprehensive metabolic panel (08/24/2024 1:12 AM CDT) Pathologist [facility] Sodium 148(H) 135 - 145 mmol/L Potassium, pl 3.6 3.3 - 4.9 mmol/L [facility] Chloride 111(H) 97 - 110 mmol/L [facility] CO2 25 22 - 32 mmol/L [facility] Anion gap 12 2 - 15 mmol/L [facility] BUN 56(H) 6 - 25 mg/dL [facility] Creatinine 3.16(H) 0.80 - 1.30 mg/dL [facility] Glucose 102 70 - 199 mg/dL [facility] Comment: Interpretive Data Fasting glucose >/= 126 [...] 2022. Calcium 8.5 8.5 - 10.3 mg/dL [facility] Bilirubin, total 0.4 0.1 - 1.2 mg/dL [facility] Protein, pl 5.7(L) 6.5 - 8.5 g/dL [facility] Albumin 3.6 3.5 - 5.0 g/dL [facility] Alk phos 62 40 - 130 Units/L [facility] ALT 16 7 - 55 Units/L [facility] AST 11 10 - 50 Units/L [facility] Blood 08/24/2024 1:12 AM CDT 08/24/2024 1:35 AM CDT Karlos Hargrove MD LAB BLOOD ORDERABLES Final Result [facility] One [facility] Department [place] [address] * US Kidney Complete (08/23/2024 8:12 PM [...] Straw Yellow Clarity, ur Clear Clear [facility] Specific gravity, ur 1.011 1.003 - 1.030 [facility] pH, urine 5.5 [facility] Comment: Interpretive Data U rine pH is affected by diet, medications, systemic acid-base disturbances, and renal tubular function. pH may affect urinary stone formation. For example, urine pH below 6.0 may help reduce the tendency for calcium phosphate stones and pH greater than 6.0 may reduce the tendency for uric acid stone formation. Source: [facility] Current Interpretive Data was last revised on 2017 Protein, ur ql Negative Negative [facility] Glucose, ur ql Negative Negative [facility] Ketones, ur Negative Negative [facility] Bilirubin, ur Negative Negative [facility] Blood, ur 2+(A) Negative [facility] Urobilinogen, ur <2.0 <2.0 mg/dL [facility] Nitrite, ur Negative Negative [facility] Leukocyte esterase, ur Trace(A) Negative [facility] UA reflex comment Reflex to microscopic UA will be performed. [facility] Urine 08/23/2024 7:01 PM CDT 08/23/2024 7:15 PM CDT us Kinga J. Erckmann DEVELOPMENT COACH LAB URINE ORDERABLES Angeles l Result Performing Organization Address [facility] Co de Phone Number [facility] [place] [address] * Protein / creatinine ratio, urine, random (08/23/2024 7:01 PM CDT) Protein, ur, quant 6.4 mg/dL Comment: Interpretive Data No reference range established. Current interpretive data was last revised 2018. Creatinine Ur 74.0 mg/dL [facility] Comment: Interpretive Data No reference range established. Current interpretive data was last revised 2018. Protein/creatinin e ratio 86.5 0.0 - 180.0 mg/g CR [facility] Urine 08/23/2024 7:01 PM CDT 08/23/2024 7:28 PM CDT Kinga Jones DEVELOPMENT COACH LAB URINE ORDERABLES Angeles l Result Performing Organization Address [facility] Co de Phone Number [facility] Department [place] [address] * (ABNORMAL) Urinalysis, microscopic only (08/23/2024 7:01 PM CDT) Pathologist [facility] WBC, ur 0-5 0 - 5 /HPF RBC, ur 6-10(A) 0 - 2 /HPF [facility] Urine 08/23/2024 7:01 PM CDT 08/23/2024 7:15 PM CDT Kinga Jones DEVELOPMENT COACH LAB URINE ORDERABLES Angeles l Result Performing Organization Address [facility] Co de Phone Number [facility] [place] [address] * Urine culture Urine, clean voided (08/23/2024 7:01 PM CDT) Pathologist [facility] Report Final Report: Less than 100,000 colonies/mL (clinically insignificant growth based on current clinical standards) Organism (CLINICALLY INSIGNIFICANT GROWTH [facility] Urine, clean voided 08/23/2024 7:01 PM CDT 08/23/2024 8:52 PM CDT Narrative [facility] - 08/25/2024 8:02 AM CDT Indications for Culture:->Other (specify) Other Indication:->elevated creatinine Specimen received in a sterile container. Testing performed by [facility] ([phone]) us Kinga Jones NP LAB MICROBIOLOGY - GENERA L ORDERABLES Final Result Performing Organization Address City/[facility]/ZIP Co de Phone Number [facility] Department [place] [address] * Immunotyping, serum with interpretation (08/23/2024 6:04 PM CDT) Immunosubtraction Please see comment Comment: NO PARAPROTEIN DETECTED Reviewed and signed by Fernando Nunez MD, PhD 08/24/2024 Blood 08/23/2024 6:04 PM CDT 08/23/2024 6:13 PM CDT us Hermelindo Butler MD LAB BLOOD ORDER ELANA Final Result Performing Organization Address [facility]/ZIP Co de Phone Number [facility] Department [place] [address] * (ABNORMAL) eGFR (08/23/2024 6:04 PM CDT) [...] MD LAB BLOOD ORDER ELANA Final Result [facility] One [facility] Department [place] [address] * (ABNORMAL) Differential, auto (08/23/2024 6:04 PM CDT) Pathologist [facility] Neutrophil abs 6.5 1.5 - 6.5 K/cumm Imm gran abs 0.0 0.0 - 0.1 K/cumm [facility] Lymphocyte abs 0.7(L) 0.8 - 3.3 K/cumm [facility] Monocyte abs 0.6 0.2 - 0.8 K/cumm [facility] Eosinophil abs 0.6(H) 0.0 - 0.5 K/cumm [facility] Basophil abs 0.0 0.0 - 0.1 K/cumm [facility] Neutrophil pct 77.0 % [facility] Comment: Interpretive Data Percent cell count reference ranges are not reported, since discordance with absolute values may lead to misinterpretation of CBC data. Current Interpretive Data was last revised on 2017. Imm gran pct 0.5 % [facility] Comment: Interpretive Data Percent cell count reference ranges are not reported, since discordance with absolute values may lead to misinterpretation of CBC data. Current Interpretive Data was last revised on 2017. Lymphocyte pct 8.3 % [facility] Comment: Interpretive Data Percent cell count reference [...] MD LAB BLOOD ORDER ELANA Final Result [facility] Department [place] [address] * (ABNORMAL) Immunoglobulin free light chains (08/23/2024 6:04 PM CDT) [facility]/Lambda ratio [facility] <0.40 0.26 - 1.65 Comment: Interpretive Data The Binding Site FreeLite assay procedure was used. Results from different manufacturers or methods may not be comparable. Serial testing should be performed using the same methods and instrumentation. Current Interpretive Data was last revised on 2023. [facility] free light chain [facility] <0.06(L) 0.33 - 1.94 mg/dL [facility] Comment: Interpretive Data The Binding Site FreeLite assay procedure was used. Results from different manufacturers or methods may not be comparable. Serial testing should be performed using the same methods and instrumentation. Current Interpretive Data was last revised on 2023. Lambda free light chain [facility] 0.15(L) 0.57 - 2.63 mg/dL [facility] Comment: Interpretive Data The Binding Site FreeLite assay procedure was used. Results from different manufacturers or methods may not be comparable. Serial testing should be performed using the same methods and instrumentation. Current Interpretive Data was last revised on 2023. Blood 08/23/2024 6:04 PM CDT 08/23/2024 6:12 PM CDT Hermelindo Butler MD LAB BLOOD ORDER ELANA Final Result [facility] One [facility] Department [place] [address] * (ABNORMAL) CBC with auto differential (08/23/2024 6:04 PM CDT) WBC 8.5 3.8 - 9.9 K/cumm Hgb 11.8(L) 13.0 - 17.5 g/dL [facility] Hct 35.6(L) 38.9 - 50.3 % [facility] Plt 131(L) 150 - 400 K/cumm [facility] MPV 9.8 9.1 - 12.3 fL [facility] RBC 3.78(L) 4.30 - 5.80 M/cumm [facility] MCV 94.2 81.3 - 96.4 fL [facility] MCH 31.2 27.1 - 33.3 pg [facility] MCHC 33.1 32.3 - 35.7 g/dL [facility] RDW CV 15.2(H) 11.1 - 14.9 % [facility] RDW SD 51.2(H) 35.7 - 48.1 fL [facility] NRBC abs 0.00 0.00 - 0.01 K/cumm [facility] Blood 08/23/2024 6:04 PM CDT 08/23/2024 6:12 PM CDT Hermelindo Butler MD LAB BLOOD ORDER ELANA Final Result Performing Organization Address City/[facility]/ZIP Co de Phone Number [facility] Department [place] [address] * (ABNORMAL) Uric acid (08/23/2024 6:04 PM CDT) Pathologist [facility] Uric acid 9.5(H) 3.0 - 8.0 mg/dL Blood 08/23/2024 6:04 PM CDT 08/23/2024 6:13 PM CDT Hermelindo Butler MD LAB BLOOD ORDER ELANA Final Result Performing Organization Address [facility] Co de Phone Number [facility] [place] [address] * (ABNORMAL) Protein electrophoresis with reflex, serum with interpretation (08/23/2024 6:04 PM CDT) [facility] Protein, sr 5.9(L) 6.2 - 8.2 g/dL Albumin 3.9 3.2 - 5.0 g/dL [facility] Alpha-1 globulin 0.4 0.2 - 0.4 g/dL [facility] Alpha-2 globulin 0.7 0.5 - 1.0 g/dL [facility] Beta-1 globulin 0.4 0.3 - 0.6 g/dL [facility] Beta-2 globulin 0.3 0.2 - 0.6 g/dL [facility] Gamma globulin 0.2(L) 0.5 - 1.7 g/dL [facility] SPEP interp Please see comment [facility] Comment: No apparent monoclonal peak Decreased gamma globulins Electrophoretic pattern appears similar to previous sample 08/04/24 See immunotyping for further information Reviewed and signed by Fernando Nunez MD, PhD 08/24/2024 Blood 08/23/2024 6:04 PM CDT 08/23/2024 6:13 PM CDT us Hermelindo Butler MD LAB BLOOD ORDER ELANA Final Result [facility] Department [place] [address] * (ABNORMAL) Phosphorus (08/23/2024 6:04 PM CDT) Pathologist [facility] Phosphorus, pl 4.7(H) 2.3 - 4.5 mg/dL Blood 08/23/2024 6:04 PM CDT 08/23/2024 6:13 PM CDT Hermelindo Butler MD LAB BLOOD ORDER ELANA Final Result Performing Organization Address [facility] Co de Phone Number [facility] Department [place] [address] * Magnesium (08/23/2024 6:04 PM CDT) [facility] Magnesium 1.9 1.4 - 2.5 mg/dL Blood 08/23/2024 6:04 PM CDT 08/23/2024 6:13 PM CDT Hermelindo Butler MD LAB BLOOD ORDER ELANA Final Result Performing Organization Address City/[facility] Co de Phone Number [facility] Department [place] [address] * Lactate dehydrogenase (LD) (08/23/2024 6:04 PM CDT) Pathologist [facility] Lactate dehydrogenase (LDH) 198 100 - 250 Units/L Blood 08/23/2024 6:04 PM CDT 08/23/2024 6:13 PM CDT Hermelindo Butler MD LAB BLOOD ORDER ELANA Final Result Performing Organization Address City/[facility]/ZIP Co de Phone Number [facility] Department [place] [address] * (ABNORMAL) IgA (08/23/2024 6:04 PM CDT) Immunoglobulin A <50(L) 70 - 400 mg/dL Blood 08/23/2024 6:04 PM CDT 08/23/2024 6:13 PM CDT Hermelindo Butler MD LAB BLOOD ORDER [place] [address] * (ABNORMAL) IgM (08/23/2024 6:04 PM CDT) Pathologist [facility] Immunoglobulin M <25(L) 40 - 230 mg/dL Blood 08/23/2024 6:04 PM CDT 08/23/2024 6:13 PM CDT Hermelindo Butler MD LAB BLOOD ORDER ELANA Final Result Performing Organization Address City/[facility] [place] [address] * (ABNORMAL) IgG (08/23/2024 6:04 PM CDT) [facility] Immunoglobulin G <300(L) 700 - 1,600 mg/dL Blood 08/23/2024 6:04 PM CDT 08/23/2024 6:13 PM CDT Hermelindo Butler MD LAB BLOOD ORDER ELANA Final Result [facility] [place] [address] * (ABNORMAL) Comprehensive metabolic panel (08/23/2024 6:04 PM CDT) Sodium 146(H) 135 - 145 mmol/L Potassium, pl 3.8 3.3 - 4.9 mmol/L [facility] Chloride 107 97 - 110 mmol/L [facility] CO2 26 22 - 32 mmol/L [facility] Anion gap 13 2 - 15 mmol/L [facility] BUN 58(H) 6 - 25 mg/dL [facility] Creatinine 3.37(H) 0.80 - 1.30 mg/dL [facility] Glucose 89 70 - 199 mg/dL [facility] Comment: Interpretive Data Fasting glucose >/= 126 [...] 2022. Calcium 8.9 8.5 - 10.3 mg/dL [facility] Bilirubin, total 0.4 0.1 - 1.2 mg/dL [facility] Protein, pl 6.2(L) 6.5 - 8.5 g/dL [facility] Albumin 4.0 3.5 - 5.0 g/dL [facility] Alk phos 68 40 - 130 Units/L [facility] ALT 16 7 - 55 Units/L [facility] AST 12 10 - 50 Units/L [facility] Blood 08/23/2024 6:04 PM CDT 08/23/2024 6:13 PM CDT Hermelindo Butler MD LAB BLOOD ORDER ELANA Final Result [facility] One [facility] Department [place] [address] * SCAN - LABS (08/20/2024) us Provider Scanning Final Result * SCAN - LABS (08/10/2024) us Provider Scanning Final Result * US Kidney Complete (08/06/2024 2:42 PM [employer]PER [employer] RECEIVING) Anatomical Region Laterality Modality Kidney N/A Ultrasound 08/06/2024 3:27 PM [employer] RECEIVING Impressions 08/06/2024 3:27 PM [employer] RECEIVING 1. Mild nephromegaly with mild to moderate hydronephrosis bilaterally. 2. Incomplete bladder emptying with post void bladder residual of 397 mL. Electronically signed by: Dylan Tinajero M.D. Narrative 08/06/2024 3:27 PM [employer] RECEIVING EXAMINATION: COMPLETE RENAL SONOGRAM HISTORY: Rising creatinine. [...] Urinalysis reflex to microscopic (08/06/2024 9:19 AM [employer]IPPER [employer] RECEIVING) Pathologist [facility] Color, ur Straw Yellow Clarity, ur Clear Clear [facility] Specific gravity, ur 1.013 1.003 - 1.030 [facility] pH, urine 5.5 [facility] Comment: Interpretive Data U rine pH is affected by diet, medications, systemic acid-base disturbances, and renal tubular function. pH may affect urinary stone formation. For example, urine pH below 6.0 may help reduce the tendency for calcium phosphate stones and pH greater than 6.0 may reduce the tendency for uric acid stone formation. Source: [facility] Current Interpretive Data was last revised on 2017 Protein, ur ql Negative Negative [facility] Glucose, ur ql Negative Negative [facility] Ketones, ur Negative Negative [facility] Bilirubin, ur Negative Negative [facility] Blood, ur 3+(A) Negative [facility] Urobilinogen, ur <2.0 <2.0 mg/dL [facility] Nitrite, ur Negative Negative [facility] Leukocyte esterase, ur Trace(A) [facility] UA reflex comment Reflex to microscopic UA will be performed. [facility] Urine 08/06/2024 9:19 AM [employer] RECEIVING 08/06/2024 9:19 AM [employer] RECEIVING Lyndsey Fagan NP LAB URINE ORDERABLES Angeles nicole Result [facility] One [facility] Department [place] [address] * Protein / creatinine ratio, urine, random (08/06/2024 9:19 AM [employer] RECEIVING) Pathologist [facility] Protein, ur, quant 7.9 mg/dL Comment: Interpretive Data No reference range established. Current interpretive data was last revised 2018. Creatinine Ur 77.4 mg/dL [facility] Comment: Interpretive Data No reference range established. Current interpretive data was last revised 2018. Protein/creatinin e ratio 102.1 0.0 - 180.0 mg/g CR [facility] Urine 08/06/2024 9:19 AM [employer] RECEIVING 08/06/2024 9:41 AM [employer] RECEIVING Lyndsey Fagan NP LAB URINE ORDERABLES Angeles l Result Performing Organization Address [facility] de Phone Number [facility] [place] [address] * (ABNORMAL) Urinalysis, microscopic only (08/06/2024 9:19 AM [employer]PER AND RECEIVING) WBC, ur 6-10(A) 0 - 5 /HPF RBC, ur 21-50(A) 0 - 2 /HPF [facility] Bacteria, ur Trace(A) [facility] Mucous, ur Present(A) [facility] Urine 08/06/2024 9:19 AM [employer] RECEIVING 08/06/2024 9:19 AM [employer] RECEIVING Lyndsey Fagan NP LAB URINE ORDERABLES Angeles l Result Performing Organization Address [facility] de Phone Number [facility] [place] [address] * (ABNORMAL) eGFR (08/06/2024 7:43 AM [employer]PER AND RECEIVING) eGFR 31(L) >=60 mL/min/1. 73 m2 Comment: [...] last reviewed 2021. Blood 08/06/2024 7:43 AM [employer] RECEIVING 08/06/2024 7:52 AM [employer] AND RECEIVING us Hermelindo Butler MD LAB BLOOD ORDER ELANA Final Result [facility] One [facility] Department [place] [address] * (ABNORMAL) Differential, auto (08/06/2024 7:43 AM [employer]PER [employer] RECEIVING) Neutrophil abs 5.4 1.5 - 6.5 K/cumm Comment:Testing performed by : [facility], [address] [place], [place] [phone] Lymphocyte abs 0.8 0.8 - 3.3 K/cumm [facility] Comment:Testing performed by : [facility], [address] [place] [phone] Monocyte abs 0.5 0.2 - 0.8 K/cumm [facility] Comment:Testing performed by : [facility], [address] [place] [phone] Eosinophil abs 0.7(H) 0.0 - 0.5 K/cumm [facility] Comment:Testing performed by : [facility], [address] [place] [phone] Basophil abs 0.0 0.0 - 0.1 K/cumm [facility] Comment:Testing performed by : [facility], [address] [place], [place] [phone] Neutrophil pct 72.4 % [facility] Comment: Interpretive Data Percent cell count reference ranges are not reported, since discordance with absolute values may lead to misinterpretation of CBC data. Current Interpretive Data was last revised on 2017. Testing performed by: [facility], [address] [place] [phone] Lymphocyte pct 10.4 % [facility] Comment: Interpretive Data Percent cell count reference ranges are not reported, since discordance with absolute values may lead to misinterpretation of CBC data. Current Interpretive Data was last revised on 2017. Testing performed by: [facility], [address] [place] [phone] Monocyte pct 7.3 % MT DUARTE Comment: Interpretive Data Percent cell count reference ranges are not reported, since discordance with absolute values may lead to misinterpretation of CBC data. Current Interpretive Data was last revised on 2017. Testing performed by: [facility], [address] [place] [phone] Eosinophil pct 9.4 % MT SUAREZ Comment: Interpretive Data Percent cell count reference ranges are not reported, since discordance with absolute values may lead to misinterpretation of CBC data. Current Interpretive Data was last revised on 2017. Testing performed by: [facility], [address] [place] [phone] Basophil pct 0.5 % MT SUAREZ Comment: Interpretive Data Percent cell count reference ranges are not reported, since discordance with absolute values may lead to misinterpretation of CBC data. Current Interpretive Data was last revised on 2017. Testing performed by: [facility], [address] [place] [phone] Blood 08/06/2024 7:43 AM SHIPPER AND RECEIVING 08/06/2024 7:51 AM SHIPPER AND RECEIVING us Hermelindo Butler MD LAB BLOOD ORDER ELANA Final Result MT DUARTE [facility] Department [place] [address] * (ABNORMAL) CBC with auto differential (08/06/2024 7:43 AM SHIPPER AND RECEIVING) WBC 7.5 3.8 - 9.9 K/cumm Comment:Testing performed by : [facility], [address] [place] [address] Hgb 13.7 13.0 - 17.5 g/dL CERNER BJ Comment:Testing performed by : [facility], [address] [place] [address] Hct 40.6 38.9 - 50.3 % CERNER BJ Comment:Testing performed by : [facility], [address] [place] [address] Plt 169 150 - 400 K/cumm CERNER BJ Comment:Testing performed by : [facility], [address] [place] [address] MPV 7.5 6.8 - 10.4 fL CERNER BJ Comment:Testing performed by : [facility], [address] [place], [place] [phone] RBC 4.37 4.30 - 5.80 M/cumm CERNER BJ Comment:Testing performed by : [facility], [address] [place] [address] MCV 92.7 81.3 - 96.4 fL CERNER BJ Comment:Testing performed by : [facility], [address] [place] [address] MCH 31.3 27.1 - 33.3 pg CERNER BJ Comment:Testing performed by : [facility], [address] [place] [address] MCHC 33.8 32.3 - 35.7 g/dL CERNER BJ Comment:Testing performed by : [facility], [address] [place] [address] RDW CV 16.5(H) 11.1 - 14.9 % CERNER BJ Comment:Testing performed by : [facility], [address] [place] [address] NRBC abs 0.00 0.00 - 0.01 K/cumm CERNER BJ Comment:Testing performed by : [facility], [address] [place] [address] Blood 08/06/2024 7:43 AM SHIPPER AND RECEIVING 08/06/2024 7:51 AM SHIPPER AND RECEIVING Hermelindo Butler MD LAB BLOOD ORDER ELANA Final Result Performing Organization Address City/[facility] Co de Phone Number [facility] Department [place] [address] * (ABNORMAL) PSA diagnostic (08/06/2024 7:43 AM SHIPPER AND RECEIVING) PSA-Total 6.28(H) <=6.20 ng/mL Comment: Interpretive Data [...] last revised 21. Blood 08/06/2024 7:43 AM SHIPPER AND RECEIVING 08/06/2024 7:52 AM SHIPPER AND RECEIVING us Hermelindo Butler MD LAB BLOOD ORDER ELANA Final Result Performing Organization Address [facility] de Phone Number [facility] Department [place] [address] * Lactate dehydrogenase (LD) (08/06/2024 7:43 AM SHIPPER AND RECEIVING) Lactate dehydrogenase (LDH) 161 100 - 250 Units/L Blood 08/06/2024 7:43 AM SHIPPER AND RECEIVING 08/06/2024 7:52 AM SHIPPER AND RECEIVING us Hermelindo Butler MD LAB BLOOD ORDER ELANA Final Result Performing Organization Address City/[facility] de Phone Number [facility] [place] [address] * (ABNORMAL) Lipid panel (08/06/2024 7:43 AM SHIPPER AND RECEIVING) Cholesterol 128 30 - 199 mg/dL Comment: [...] revised on 2018. Triglycerides 149 <=149 mg/dL [facility] Comment: Interpretive Data Ages < [...] revised on 2018. HDL 38(L) >=40 mg/dL [facility] Comment: Interpretive Data Ages < [...] 2018. LDL, calculated 64 <=129 mg/dL MT [facility] Comment: Interpretive Data Ages < [...] revised on 2024. Non-HDL Cholesterol 90 mg/dL [facility] Comment: Interpretive Data Ages < or = [...] last revised on 2018. Chol/HDL ratio 3 [facility] Blood 08/06/2024 7:43 AM SHIPPER AND RECEIVING 08/06/2024 7:52 AM SHIPPER AND RECEIVING us Hermelindo Butler MD LAB BLOOD ORDER ELANA Final Result [facility] One [facility] Department [place] [address] * (ABNORMAL) Comprehensive metabolic panel (08/06/2024 7:43 AM SHIPPER AND RECEIVING) Sodium 145 135 - 145 mmol/L Potassium, pl 4.2 3.3 - 4.9 mmol/L [facility] Chloride 108 97 - 110 mmol/L [facility] CO2 30 22 - 32 mmol/L [facility] Anion gap 7 2 - 15 mmol/L [facility] BUN 51(H) 6 - 25 mg/dL [facility] Creatinine 2.21(H) 0.80 - 1.30 mg/dL [facility] Glucose 113 70 - 199 mg/dL [facility] Comment: Interpretive Data Fasting glucose >/= 126 [...] 2022. Calcium 9.2 8.5 - 10.3 mg/dL [facility] Bilirubin, total 0.5 0.1 - 1.2 mg/dL [facility] Protein, pl 6.2(L) 6.5 - 8.5 g/dL [facility] Albumin 4.1 3.5 - 5.0 g/dL [facility] Alk phos 61 40 - 130 Units/L [facility] ALT 15 7 - 55 Units/L [facility] AST 16 10 - 50 Units/L [facility] Blood 08/06/2024 7:43 AM SHIPPER AND RECEIVING 08/06/2024 7:52 AM SHIPPER AND RECEIVING us Hermelindo Butler MD LAB BLOOD ORDER ELANA Final Result [facility] One [facility] Department [place] [address] * aPTT (08/03/2024 9:21 AM SHIPPER AND RECEIVING) aPTT 31 28 - 38 sec Comment: Interpretive Data Heparin therapeutic range: 66.0 - 100.0 seconds. Range based on correlation with therapeutic heparin activity range of 0.3 - 0.7 Units/mL. Current interpretive data was last revised on 2023. Blood 08/03/2024 9:21 AM SHIPPER AND RECEIVING 08/03/2024 9:47 AM SHIPPER AND RECEIVING Hermelindo Butler MD LAB BLOOD ORDER ELANA Final Result Performing Organization Address [facility] de Phone Number [facility] [place] [address] * Protime-INR (08/03/2024 9:21 AM SHIPPER AND RECEIVING) PT 11.5 9.7 - 13.0 sec INR 1.06 0.90 - 1.20 [facility] Comment: Interpretive data Oral anticoagulant therapeutic ranges: Venous thromboembolism prophylaxis or treatment: 2.0-3.0 CARDIOLOGY Standard range: 2.0-3.0 High-intensity range: 2.5-3.5 Refer to indication-specific guidelines for appropriate target ranges for prosthetic heart valve replacement. Current interpretive data was last revised on 2019. Blood 08/03/2024 9:21 AM SHIPPER AND RECEIVING 08/03/2024 9:47 AM SHIPPER AND RECEIVING Hermelindo Butler MD LAB BLOOD ORDER ELANA Final Result Performing Organization Address [facility] de Phone Number [facility] [place] [address] * Immunotyping, serum with interpretation (08/03/2024 7:40 AM SHIPPER AND RECEIVING) Immunosubtraction Please see comment Comment: NO PARAPROTEIN DETECTED Reviewed and signed by Hermelindo Mcnulty MD 08/04/2024 Blood 08/03/2024 7:40 AM SHIPPER AND RECEIVING 08/03/2024 8:24 AM SHIPPER AND RECEIVING Hermelindo Butler MD LAB BLOOD ORDER ELANA Final Result Performing Organization Address City/[facility] Co de Phone Number [facility] [place] [address] * (ABNORMAL) eGFR (08/03/2024 7:40 AM SHIPPER AND RECEIVING) Pathologist [facility] eGFR 37(L) >=60 mL/min/1. 73 m2 Comment: [...] last reviewed 2021. Blood 08/03/2024 7:40 AM SHIPPER AND RECEIVING 08/03/2024 7:49 AM SHIPPER AND RECEIVING Hermelindo Butler MD LAB BLOOD ORDER ELANA Final Result MT Aranda [facility] Department [place] [address] * (ABNORMAL) Differential, auto (08/03/2024 7:40 AM SHIPPER AND RECEIVING) Neutrophil abs 5.6 1.5 - 6.5 K/cumm Comment:Testing performed by : [facility] Cancer [facility], [address] [place] [phone] Lymphocyte abs 0.9 0.8 - 3.3 K/cumm [facility] Comment:Testing performed by : [facility], [address] [place] [phone] Monocyte abs 0.6 0.2 - 0.8 K/cumm [facility] Comment:Testing performed by : [facility], [address] [place] [phone] Eosinophil abs 0.8(H) 0.0 - 0.5 K/cumm [facility] Comment:Testing performed by : [facility], [address] [place] [phone] Basophil abs 0.0 0.0 - 0.1 K/cumm [facility] Comment:Testing performed by : [facility], [address] [place], [place] [phone] Neutrophil pct 70.4 % [facility] Comment: Interpretive Data Percent cell count reference ranges are not reported, since discordance with absolute values may lead to misinterpretation of CBC data. Current Interpretive Data was last revised on 2017. Testing performed by: [facility], [address] [place] [phone] Lymphocyte pct 11.2 % [facility] Comment: Interpretive Data Percent cell count reference ranges are not reported, since discordance with absolute values may lead to misinterpretation of CBC data. Current Interpretive Data was last revised on 2017. Testing performed by: [facility], [address] [place] [phone] Monocyte pct 7.7 % [facility] Comment: Interpretive Data Percent cell count reference ranges are not reported, since discordance with absolute values may lead to misinterpretation of CBC data. Current Interpretive Data was last revised on 2017. Testing performed by: [facility], [address] [place] [phone] Eosinophil pct 10.1 % [facility] Comment: Interpretive Data Percent cell count reference ranges are not reported, since discordance with absolute values may lead to misinterpretation of CBC data. Current Interpretive Data was last revised on 2017. Testing performed by: [facility], [address] [place], [place] [phone] Basophil pct 0.6 % MT SUAREZ Comment: Interpretive Data Percent cell count reference ranges are not reported, since discordance with absolute values may lead to misinterpretation of CBC data. Current Interpretive Data was last revised on 2017. Testing performed by: [facility] Cancer [facility], [address] [place] [phone] Blood 08/03/2024 7:40 AM SHIPPER AND RECEIVING 08/03/2024 7:47 AM SHIPPER AND RECEIVING us Hermelindo Butler MD LAB BLOOD ORDER ELANA Final Result MT SUAREZ [facility] Department [place] [address] * (ABNORMAL) Immunoglobulin free light chains (08/03/2024 7:40 AM SHIPPER AND RECEIVING) [facility]/Lambda ratio [facility] See Comment 0.26 - 1.65 Comment: Unable to calculate exact result. Interpretive Data The Binding Site FreeLite assay procedure was used. Results from different manufacturers or methods may not be comparable. Serial testing should be performed using the same methods and instrumentation. Current Interpretive Data was last revised on 2023. [facility] free light chain [facility] <0.06(L) 0.33 - [...] revised on 2023. Blood 08/03/2024 7:40 AM SHIPPER AND RECEIVING 08/03/2024 8:24 AM SHIPPER AND RECEIVING us Hermelindo Butler MD LAB BLOOD ORDER ELANA Final Result MT SUAREZ [facility] Department [place] [address] * (ABNORMAL) CBC with auto differential (08/03/2024 7:40 AM SHIPPER AND RECEIVING) WBC 7.9 3.8 - 9.9 K/cumm Comment:Testing performed by : [facility], [address] [place] [address] Hgb 13.7 13.0 - 17.5 g/dL MT SUAREZ Comment:Testing performed by : [facility], [address] [place] [address] Hct 41.5 38.9 - 50.3 % CERFRANK SUAREZ Comment:Testing performed by : [facility], [address] [place] [address] Plt 163 150 - 400 K/cumm CERFRANK SUAREZ Comment:Testing performed by : [facility], [address] [place] [address] MPV 7.8 6.8 - 10.4 fL CERFRANK BJ Comment:Testing performed by : [facility], [address] [place] [address] RBC 4.50 4.30 - 5.80 M/cumm CERFRANK BJ Comment:Testing performed by : [facility], [address] [place] [address] MCV 92.1 81.3 - 96.4 fL CERFRANK BJ Comment:Testing performed by : [facility], [address] [place] [address] MCH 30.4 27.1 - 33.3 pg CERFRANK BJ Comment:Testing performed by : [facility], [address] [place] [address] MCHC 33.0 32.3 - 35.7 g/dL CERFRANK BJ Comment:Testing performed by : [facility], [address] [place] [phone] RDW CV 16.6(H) 11.1 - 14.9 % [facility] Comment:Testing performed by : [facility], [address] [place] [phone] NRBC abs 0.00 0.00 - 0.01 K/cumm MT [facility] Comment:Testing performed by : [facility], [address] [place] [phone] Blood 08/03/2024 7:40 AM SHIPPER AND RECEIVING 08/03/2024 7:47 AM SHIPPER AND RECEIVING Hermelindo Butler MD LAB BLOOD ORDER ELANA Final Result [facility] One [facility] Department [place] [address] * (ABNORMAL) Protein electrophoresis with reflex, serum with interpretation (08/03/2024 7:40 AM SHIPPER AND RECEIVING) Protein, sr 5.7(L) 6.2 - 8.2 g/dL Albumin 3.8 3.2 - 5.0 g/dL [facility] Alpha-1 globulin 0.3 0.2 - 0.4 g/dL [facility] Alpha-2 globulin 0.6 0.5 - 1.0 g/dL [facility] Beta-1 globulin 0.4 0.3 - 0.6 g/dL [facility] Beta-2 globulin 0.3 0.2 - 0.6 g/dL [facility] Gamma globulin 0.2(L) 0.5 - 1.7 g/dL [facility] SPEP interp Please see comment [facility] Comment: No apparent monoclonal peak Decreased gamma globulins Electrophoretic pattern appears similar to previous sample 07/14/24 *See immunotyping for further information Reviewed and signed by Hermelindo Mcnulty MD 08/04/2024 Blood 08/03/2024 7:40 AM SHIPPER AND RECEIVING 08/03/2024 8:24 AM SHIPPER AND RECEIVING Hermelindo Butler MD LAB BLOOD ORDER ELANA Final Result Performing Organization Address City/[facility] Co de Phone Number [facility] [place] [address] * Magnesium (08/03/2024 7:40 AM SHIPPER AND RECEIVING) Pathologist [facility] Magnesium 2.2 1.4 - 2.5 mg/dL Blood 08/03/2024 7:40 AM SHIPPER AND RECEIVING 08/03/2024 9:36 AM SHIPPER AND RECEIVING Hermelindo Butler MD LAB BLOOD ORDER ELANA Final Result Performing Organization Address [facility] de Phone Number [facility] [place] [address] * Lactate dehydrogenase (LD) (08/03/2024 7:40 AM SHIPPER AND RECEIVING) [facility] Lactate dehydrogenase (LDH) 172 100 - 250 Units/L Blood 08/03/2024 7:40 AM SHIPPER AND RECEIVING 08/03/2024 7:49 AM SHIPPER AND RECEIVING Hermelindo Butler MD LAB BLOOD ORDER ELANA Final Result Performing Organization Address [facility] de Phone Number [facility] [place] [address] * (ABNORMAL) Hemoglobin A1c (08/03/2024 7:40 AM SHIPPER AND RECEIVING) Pathologist [facility] Hgb A1C 5.8(H) 4.0 - 5.6 % Estimated Average Glucose 120 mg/dL [facility] Comment: The ADA recommends reporting an estimated Average Glucose (eAG) with all Hemoglobin A1c results using the equation derived from a study of 507 normal and diabetic adults. Minority populations were underrepresented and children were not included. (Diabetes Care 2020; 43(S1): S66-S76). The eAG is not equivalent to a fasting glucose. Blood 08/03/2024 7:40 AM SHIPPER AND RECEIVING 08/03/2024 7:49 AM SHIPPER AND RECEIVING us Lyndsey Fagan NP LAB BLOOD ORDERABLES [place] l Result Performing Organization Address [facility] Co de Phone Number [facility] [place] [address] * Gamma GT (08/03/2024 7:40 AM SHIPPER AND RECEIVING) GGT 23 10 - 50 Units/L Blood 08/03/2024 7:40 AM SHIPPER AND RECEIVING 08/03/2024 9:36 AM SHIPPER AND RECEIVING us Hermelindo Butler MD LAB BLOOD ORDER ELANA Final Result Performing Organization Address [facility] de Phone Number [facility] Department [place] [address] * (ABNORMAL) IgA (08/03/2024 7:40 AM SHIPPER AND RECEIVING) Immunoglobulin A <50(L) 70 - 400 mg/dL Blood 08/03/2024 7:40 AM SHIPPER AND RECEIVING 08/03/2024 8:09 AM SHIPPER AND RECEIVING Hermelindo Butler MD LAB BLOOD ORDER ELANA Final Result Performing Organization Address [facility] de Phone Number [facility] [place] [address] * (ABNORMAL) IgM (08/03/2024 7:40 AM SHIPPER AND RECEIVING) Immunoglobulin M <25(L) 40 - 230 mg/dL Blood 08/03/2024 7:40 AM SHIPPER AND RECEIVING 08/03/2024 8:09 AM SHIPPER AND RECEIVING Hermelindo Butler MD LAB BLOOD ORDER ELANA Final Result Performing Organization Address City/[facility]/ZIP Co de Phone Number [facility] One [facility] [place] [address] * (ABNORMAL) IgG (08/03/2024 7:40 AM SHIPPER AND RECEIVING) [facility] Immunoglobulin G <300(L) 700 - 1,600 mg/dL Blood 08/03/2024 7:40 AM SHIPPER AND RECEIVING 08/03/2024 8:09 AM SHIPPER AND RECEIVING Hermelindo Butler MD LAB BLOOD ORDER ELANA Final Result Performing Organization Address [facility] de Phone Number [facility] One [facility] Department [place] [address] * (ABNORMAL) Comprehensive metabolic panel (08/03/2024 7:40 AM SHIPPER AND RECEIVING) [facility] Sodium 141 135 - 145 mmol/L Potassium, pl 4.0 3.3 - 4.9 mmol/L [facility] Chloride 104 97 - 110 mmol/L [facility] CO2 30 22 - 32 mmol/L [facility] Anion gap 7 2 - 15 mmol/L [facility] BUN 47(H) 6 - 25 mg/dL [facility] Creatinine 1.92(H) 0.80 - 1.30 mg/dL [facility] Glucose 116 70 - 199 mg/dL [facility] Comment: Interpretive Data Fasting glucose >/= 126 [...] 2022. Calcium 9.2 8.5 - 10.3 mg/dL [facility] Bilirubin, total 0.7 0.1 - 1.2 mg/dL [facility] Protein, pl 6.2(L) 6.5 - 8.5 g/dL [facility] Albumin 3.9 3.5 - 5.0 g/dL [facility] Alk phos 63 40 - 130 Units/L [facility] ALT 15 7 - 55 Units/L [facility] AST 17 10 - 50 Units/L [facility] Blood 08/03/2024 7:40 AM SHIPPER AND RECEIVING 08/03/2024 7:49 AM SHIPPER AND RECEIVING us Hermelindo Butler MD LAB BLOOD ORDER ELANA Final Result [facility] One [facility] Department [place] [address] * (ABNORMAL) Urinalysis reflex to microscopic and culture Urine, clean voided (08/03/2024 7:30 AM SHIPPER AND RECEIVING) Color, ur Straw Yellow Clarity, ur Clear Clear [facility] Specific gravity, ur 1.012 1.003 - 1.030 [facility] pH, urine 5.5 [facility] Comment: Interpretive Data U rine pH is affected by diet, medications, systemic acid-base disturbances, and renal tubular function. pH may affect urinary stone formation. For example, urine pH below 6.0 may help reduce the tendency for calcium phosphate stones and pH greater than 6.0 may reduce the tendency for uric acid stone formation. Source: [facility] Current Interpretive Data was last revised on 2017 Protein, ur ql Negative Negative [facility] Glucose, ur ql Negative Negative [facility] Ketones, ur Negative Negative [facility] Bilirubin, ur Negative Negative [facility] Blood, ur 2+(A) Negative [facility] Urobilinogen, ur <2.0 <2.0 mg/dL [facility] Nitrite, ur Negative Negative [facility] Leukocyte esterase, ur Negative [facility] UA reflex comment Reflex to microscopic UA will be performed. [facility] Urine, clean voided 08/03/2024 7:30 AM SHIPPER AND RECEIVING 08/03/2024 7:30 AM SHIPPER AND RECEIVING Lyndsey Fagan NP LAB MICROBIOLOGY - GENERA L ORDERABLES Final Result Performing Organization Address City/[facility]/[place] [address] * (ABNORMAL) Urinalysis, microscopic only (08/03/2024 7:30 AM SHIPPER AND RECEIVING) WBC, ur 6-10(A) 0 - 5 /HPF RBC, ur 11-20(A) 0 - 2 /HPF [facility] Epithelial cells, squamous, ur 1-5 0 - 5 /HPF [facility] Bacteria, ur Trace(A) [facility] Culture Reflex Comment Reflex conditions for urine culture (WBC >10) not met. [facility] Urine, clean voided 08/03/2024 7:30 AM SHIPPER AND RECEIVING 08/03/2024 7:30 AM SHIPPER AND RECEIVING Lyndsey Fagan NP LAB URINE ORDERABLES Angeles l Result Performing Organization Address [facility] [place] [address] * Urine culture Urine, clean voided (08/03/2024 7:30 AM SHIPPER AND RECEIVING) Report Final Report: No growth Urine, clean voided 08/03/2024 7:30 AM SHIPPER AND RECEIVING 08/03/2024 9:59 AM SHIPPER AND RECEIVING Narrative [facility] - 08/04/2024 11:14 AM SHIPPER AND RECEIVING Testing performed by [facility] Microbiology Laboratory ([phone]) Hermelindo Butler MD LAB MICROBIOLOG Y - GENERAL ORDERABLES Final Result Performing Organization Address City/[facility]/[place] [address] * Immunotyping, serum with interpretation (07/13/2024 7:40 AM SHIPPER AND RECEIVING) Immunosubtraction Please see comment Comment: NO PARAPROTEIN DETECTED Reviewed and signed by Rufino Huff MD, PhD 07/14/2024 Blood 07/13/2024 7:40 AM SHIPPER AND RECEIVING 07/13/2024 8:42 AM SHIPPER AND RECEIVING Hermelindo Butler MD LAB BLOOD ORDER ELANA Final Result Performing Organization Address City/[facility]/ZIP Co de Phone Number [facility] Department [place] [address] * (ABNORMAL) eGFR (07/13/2024 7:40 AM SHIPPER AND RECEIVING) Pathologist [facility] eGFR 57(L) >=60 [...] last reviewed 2021. Blood 07/13/2024 7:40 AM SHIPPER AND RECEIVING 07/13/2024 7:47 AM SHIPPER AND RECEIVING Hermelindo Butler MD LAB BLOOD ORDER ELANA Final Result [facility] Department [place] [address] * Differential, auto (07/13/2024 7:40 AM SHIPPER AND RECEIVING) Neutrophil abs 5.4 1.5 - 6.5 K/cumm Comment:Testing performed by : [facility], [address] [place] [phone] Lymphocyte abs 0.9 0.8 - 3.3 K/cumm [facility] Comment:Testing performed by : [facility], [address] [place] [address] Monocyte abs 0.5 0.2 - 0.8 K/cumm [facility] Comment:Testing performed by : [facility], [address] [place] [phone] Eosinophil abs 0.5 0.0 - 0.5 K/cumm [facility] Comment:Testing performed by : [facility], [address] [place] [address] Basophil abs 0.0 0.0 - 0.1 K/cumm [facility] Comment:Testing performed by : [facility], [address] [place] [phone] Neutrophil pct 73.6 % [facility] Comment: Interpretive Data Percent cell count reference ranges are not reported, since discordance with absolute values may lead to misinterpretation of CBC data. Current Interpretive Data was last revised on 2017. Testing performed by: [facility], [address] [place] [phone] Lymphocyte pct 12.0 % [facility] Comment: Interpretive Data Percent cell count reference ranges are not reported, since discordance with absolute values may lead to misinterpretation of CBC data. Current Interpretive Data was last revised on 2017. Testing performed by: [facility], [address] [place], [place] [phone] Monocyte pct 7.4 % [facility] Comment: Interpretive Data Percent cell count reference ranges are not reported, since discordance with absolute values may lead to misinterpretation of CBC data. Current Interpretive Data was last revised on 2017. Testing performed by: [facility], [facility] [place] [phone] Eosinophil pct 6.5 % MT [facility] Comment: Interpretive Data Percent cell count reference ranges are not reported, since discordance with absolute values may lead to misinterpretation of CBC data. Current Interpretive Data was last revised on 2017. Testing performed by: [facility], [address] [place] [phone] Basophil pct 0.5 % MT [facility] Comment: Interpretive Data Percent cell count reference ranges are not reported, since discordance with absolute values may lead to misinterpretation of CBC data. Current Interpretive Data was last revised on 2017. Testing performed by: [facility], [address] [place] [phone] Blood 07/13/2024 7:40 AM SHIPPER AND RECEIVING 07/13/2024 7:46 AM SHIPPER AND RECEIVING Hermelindo Butler MD LAB BLOOD ORDER ELANA Final Result [facility] Department [place] [address] * (ABNORMAL) Immunoglobulin free light chains (07/13/2024 7:40 AM SHIPPER AND RECEIVING) [facility]/Lambda ratio BJ See Comment 0.26 - 1.65 Comment: Unable to calculate exact result. Interpretive Data The Binding Site FreeLite assay procedure was used. Results from different manufacturers or methods may not be comparable. Serial testing should be performed using the same methods and instrumentation. Current Interpretive Data was last revised on 2023. [facility] free light chain [facility] <0.06(L) 0.33 - [...] revised on 2023. Blood 07/13/2024 7:40 AM SHIPPER AND RECEIVING 07/13/2024 8:42 AM SHIPPER AND RECEIVING Hermelindo Butler MD LAB BLOOD ORDER ELANA Final Result [facility] Department [place] [address] * (ABNORMAL) CBC with auto differential (07/13/2024 7:40 AM SHIPPER AND RECEIVING) WBC 7.4 3.8 - 9.9 K/cumm Comment:Testing performed by : [facility], [address] [place] [address] Hgb 14.4 13.0 - 17.5 g/dL [facility] Comment:Testing performed by : [facility], [address] [place] [address] Hct 44.1 38.9 - 50.3 % [facility] Comment:Testing performed by : [facility], [address] [place] [address] Plt 174 150 - 400 K/cumm [facility] Comment:Testing performed by : [facility], [address] [place] [address] MPV 7.5 6.8 - 10.4 fL [facility]J Comment:Testing performed by : [facility], [address] [place] [address] RBC 4.75 4.30 - 5.80 M/cumm [facility] Comment:Testing performed by : [facility], [address] [place] [address] MCV 92.8 81.3 - 96.4 fL [facility] Comment:Testing performed by : [facility], [address] [place], [place] [phone] MCH 30.2 27.1 - 33.3 pg MT [facility] Comment:Testing performed by : [facility], [address] [place], [place] [phone] MCHC 32.6 32.3 - 35.7 g/dL MT [facility] Comment:Testing performed by : [facility], [address] [place], [place] [phone] RDW CV 16.2(H) 11.1 - 14.9 % MT [facility] Comment:Testing performed by : [facility], [address] [place], [place] [phone] NRBC abs 0.00 0.00 - 0.01 K/cumm MT [facility] Comment:Testing performed by : [facility], [address] [place], [place] [phone] Blood 07/13/2024 7:40 AM SHIPPER AND RECEIVING 07/13/2024 7:46 AM SHIPPER AND RECEIVING Hermelindo Butler MD LAB BLOOD ORDER ELANA Final Result MT [facility] Department [place] [address] * (ABNORMAL) Protein electrophoresis with reflex, serum with interpretation (07/13/2024 7:40 AM SHIPPER AND RECEIVING) Protein, sr 5.7(L) 6.2 - 8.2 g/dL Albumin 3.7 3.2 - 5.0 g/dL [facility] Alpha-1 globulin 0.3 0.2 - 0.4 g/dL [facility] Alpha-2 globulin 0.6 0.5 - 1.0 g/dL [facility] Beta-1 globulin 0.4 0.3 - 0.6 g/dL [facility] Beta-2 globulin 0.3 0.2 - 0.6 g/dL [facility] Gamma globulin 0.3(L) 0.5 - 1.7 g/dL [facility] SPEP interp Please see comment [facility] Comment: No apparent monoclonal peak Decreased gamma globulins Electrophoretic pattern appears similar to previous sample 06/23/24 See immunotyping for further information Reviewed and signed by Rufino Huff MD, PhD 07/14/2024 Blood 07/13/2024 7:40 AM SHIPPER AND RECEIVING 07/13/2024 8:42 AM SHIPPER AND RECEIVING Hermelindo Butler MD LAB BLOOD ORDER ELANA Final Result Performing Organization Address [facility] Co de Phone Number [facility] [place] [address] * Magnesium (07/13/2024 7:40 AM SHIPPER AND RECEIVING) Pathologist [facility] Magnesium 2.2 1.4 - 2.5 mg/dL Blood 07/13/2024 7:40 AM SHIPPER AND RECEIVING 07/13/2024 7:47 AM SHIPPER AND RECEIVING Hermelindo Butler MD LAB BLOOD ORDER ELANA Final Result Performing Organization Address [facility] de Phone Number [facility] [place] [address] * Lactate dehydrogenase (LD) (07/13/2024 7:40 AM SHIPPER AND RECEIVING) Pathologist [facility] Lactate dehydrogenase (LDH) 152 100 - 250 Units/L Blood 07/13/2024 7:40 AM SHIPPER AND RECEIVING 07/13/2024 7:47 AM SHIPPER AND RECEIVING Hermelindo Butler MD LAB BLOOD ORDER ELANA Final Result Performing Organization Address City/[facility] [place] [address] * Gamma GT (07/13/2024 7:40 AM SHIPPER AND RECEIVING) GGT 27 10 - 50 Units/L Blood 07/13/2024 7:40 AM SHIPPER AND RECEIVING 07/13/2024 7:47 AM SHIPPER AND RECEIVING us Hermelindo Butler MD LAB BLOOD ORDER ELANA Final Result Performing Organization Address [facility] de Phone Number [facility] [place] [address] * (ABNORMAL) IgA (07/13/2024 7:40 AM SHIPPER AND RECEIVING) Immunoglobulin A <50(L) 70 - 400 mg/dL Blood 07/13/2024 7:40 AM SHIPPER AND RECEIVING 07/13/2024 7:59 AM SHIPPER AND RECEIVING us Hermelindo Butler MD LAB BLOOD ORDER ELANA Final Result Performing Organization Address [facility] de Phone Number [facility] Department [place] [address] * (ABNORMAL) IgM (07/13/2024 7:40 AM SHIPPER AND RECEIVING) Immunoglobulin M <25(L) 40 - 230 mg/dL Blood 07/13/2024 7:40 AM SHIPPER AND RECEIVING 07/13/2024 7:59 AM SHIPPER AND RECEIVING us Hermelindo Butler MD LAB BLOOD ORDER ELANA Final Result Performing Organization Address [facility] de Phone Number [facility] [place] [address] * (ABNORMAL) IgG (07/13/2024 7:40 AM SHIPPER AND RECEIVING) Immunoglobulin G <300(L) 700 - 1,600 mg/dL Blood 07/13/2024 7:40 AM SHIPPER AND RECEIVING 07/13/2024 7:59 AM SHIPPER AND RECEIVING us Hermelindo Butler MD LAB BLOOD ORDER ELANA Final Result [facility] Department [place] [address] * (ABNORMAL) Comprehensive metabolic panel (07/13/2024 7:40 AM SHIPPER AND RECEIVING) Sodium 144 135 - 145 mmol/L Potassium, pl 4.2 3.3 - 4.9 mmol/L [facility] Chloride 107 97 - 110 mmol/L [facility] CO2 33(H) 22 - 32 mmol/L [facility] Anion gap 4 2 - 15 mmol/L [facility] BUN 29(H) 6 - 25 mg/dL [facility] Creatinine 1.34(H) 0.80 - 1.30 mg/dL [facility] Glucose 125 70 - 199 mg/dL [facility] Comment: Interpretive Data Fasting glucose >/= 126 [...] 2022. Calcium 9.4 8.5 - 10.3 mg/dL [facility] Bilirubin, total 0.7 0.1 - 1.2 mg/dL [facility] Protein, pl 6.2(L) 6.5 - 8.5 g/dL [facility] Albumin 4.1 3.5 - 5.0 g/dL [facility] Alk phos 65 40 - 130 Units/L [facility] ALT 18 7 - 55 Units/L [facility] AST 16 10 - 50 Units/L [facility] Blood 07/13/2024 7:40 AM SHIPPER AND RECEIVING 07/13/2024 7:47 AM SHIPPER AND RECEIVING Hermelindo Butler MD LAB BLOOD ORDER ELANA Final Result Performing Organization Address [facility] Co de Phone Number [facility] [place] [address] * aPTT (07/13/2024 7:24 AM SHIPPER AND RECEIVING) aPTT 28 28 - 38 sec Comment: Interpretive Data Heparin therapeutic range: 66.0 - 100.0 seconds. Range based on correlation with therapeutic heparin activity range of 0.3 - 0.7 Units/mL. Current interpretive data was last revised on 2023. Blood 07/13/2024 7:24 AM SHIPPER AND RECEIVING 07/13/2024 7:59 AM SHIPPER AND RECEIVING Hermelindo Butler MD LAB BLOOD ORDER ELANA Final Result Performing Organization Address [facility] [place] [address] * Protime-INR (07/13/2024 7:24 AM SHIPPER AND RECEIVING) PT 11.5 9.7 - 13.0 sec INR 1.06 0.90 - 1.20 [facility] Comment: Interpretive data Oral anticoagulant therapeutic ranges: Venous thromboembolism prophylaxis or treatment: 2.0-3.0 CARDIOLOGY Standard range: 2.0-3.0 High-intensity range: 2.5-3.5 Refer to indication-specific guidelines for appropriate target ranges for prosthetic heart valve replacement. Current interpretive data was last revised on 2019. Blood 07/13/2024 7:24 AM SHIPPER AND RECEIVING 07/13/2024 7:59 AM SHIPPER AND RECEIVING Hermelindo Butler MD LAB BLOOD ORDER ELANA Final Result Performing Organization Address [facility] [place] [address] * Immunotyping, serum (06/22/2024 7:20 AM SHIPPER AND RECEIVING) Immunosubtraction Please see comment Comment: NO PARAPROTEIN DETECTED Reviewed and signed by Fernando Nunez MD, PhD 06/23/2024 Blood 06/22/2024 7:20 AM SHIPPER AND RECEIVING 06/22/2024 10:03 AM SHIPPER AND RECEIVING Hermelindo Butler MD LAB BLOOD ORDER ELANA Final Result [facility] [place] [address] * eGFR (06/22/2024 7:20 AM SHIPPER AND RECEIVING) eGFR 66 >=60 mL/min/1. 73 m2 Comment: [...] last reviewed 2021. Blood 06/22/2024 7:20 AM SHIPPER AND RECEIVING 06/22/2024 8:12 AM SHIPPER AND RECEIVING Hermelindo Butler MD LAB BLOOD ORDER ELANA Final Result [facility] [place] [address] * Differential, auto (06/22/2024 7:20 AM SHIPPER AND RECEIVING) Neutrophil abs 5.4 1.5 - 6.5 K/cumm Comment:Testing performed by : [facility], [address] [place] [phone] Lymphocyte abs 0.9 0.8 - 3.3 K/cumm [facility] Comment:Testing performed by : [facility], [address] [place] [phone] Monocyte abs 0.5 0.2 - 0.8 K/cumm [facility] Comment:Testing performed by : [facility], [address] [place] [phone] Eosinophil abs 0.2 0.0 - 0.5 K/cumm [facility] Comment:Testing performed by : [facility], [address] [place] [phone] Basophil abs 0.0 0.0 - 0.1 K/cumm [facility] Comment:Testing performed by : [facility], [address] [place] [phone] Neutrophil pct 75.7 % [facility] Comment: Interpretive Data Percent cell count reference ranges are not reported, since discordance with absolute values may lead to misinterpretation of CBC data. Current Interpretive Data was last revised on 2017. Testing performed by: [facility], [address] [place] [phone] Lymphocyte pct 13.1 % [facility] Comment: Interpretive Data Percent cell count reference ranges are not reported, since discordance with absolute values may lead to misinterpretation of CBC data. Current Interpretive Data was last revised on 2017. Testing performed by: [facility], [address] [place] [phone] Monocyte pct 7.1 % [facility] Comment: Interpretive Data Percent cell count reference ranges are not reported, since discordance with absolute values may lead to misinterpretation of CBC data. Current Interpretive Data was last revised on 2017. Testing performed by: [facility], [address] [place] [phone] Eosinophil pct 3.5 % MT [facility] Comment: Interpretive Data Percent cell count reference ranges are not reported, since discordance with absolute values may lead to misinterpretation of CBC data. Current Interpretive Data was last revised on 2017. Testing performed by: [facility], [address] [place] [phone] Basophil pct 0.6 % MT [facility] Comment: Interpretive Data Percent cell count reference ranges are not reported, since discordance with absolute values may lead to misinterpretation of CBC data. Current Interpretive Data was last revised on 2017. Testing performed by: [facility], [address] [place] [phone] Blood 06/22/2024 7:20 AM SHIPPER AND RECEIVING 06/22/2024 8:08 AM SHIPPER AND RECEIVING Hermelindo Butler MD LAB BLOOD ORDER ELANA Final Result [facility] Department [place] [address] * (ABNORMAL) Immunoglobulin free light chains (06/22/2024 7:20 AM SHIPPER AND RECEIVING) [facility]/Lambda ratio BJ See Comment 0.26 - 1.65 Comment: Unable to calculate exact result. Interpretive Data The Binding Site FreeLite assay procedure was used. Results from different manufacturers or methods may not be comparable. Serial testing should be performed using the same methods and instrumentation. Current Interpretive Data was last revised on 2023. [facility] free light chain [facility] <0.06(L) 0.33 - [...] revised on 2023. Blood 06/22/2024 7:20 AM SHIPPER AND RECEIVING 06/22/2024 9:53 AM SHIPPER AND RECEIVING Hermelindo Butler MD LAB BLOOD ORDER ELANA Final Result [facility] Department [place] [address] * (ABNORMAL) CBC with auto differential (06/22/2024 7:20 AM SHIPPER AND RECEIVING) WBC 7.1 3.8 - 9.9 K/cumm Comment:Testing performed by : [facility], [address] [place] [address] Hgb 14.6 13.0 - 17.5 g/dL [facility] Comment:Testing performed by : [facility], [address] [place] [address] Hct 45.6 38.9 - 50.3 % [facility] Comment:Testing performed by : [facility], [address] [place] [address] Plt 196 150 - 400 K/cumm [facility] Comment:Testing performed by : [facility], [address] [place] [address] MPV 8.3 6.8 - 10.4 fL [facility] Comment:Testing performed by : [facility], [address] [place] [address] RBC 4.88 4.30 - 5.80 M/cumm [facility] Comment:Testing performed by : [facility], [address] [place] [address] MCV 93.5 81.3 - 96.4 fL [facility] Comment:Testing performed by : [facility], [address] [place], [place] [phone] MCH 29.9 27.1 - 33.3 pg [facility] Comment:Testing performed by : [facility], [address] [place], [place] [phone] MCHC 31.9(L) 32.3 - 35.7 g/dL [facility] Comment:Testing performed by : [facility], [address] [place], [place] [phone] RDW CV 16.0(H) 11.1 - 14.9 % [facility] Comment:Testing performed by : [facility], [address] [place], [place] [phone] NRBC abs 0.20(H) 0.00 - 0.01 K/cumm [facility] Comment:Testing performed by : [facility], [address] [place], [place] [phone] Blood 06/22/2024 7:20 AM SHIPPER AND RECEIVING 06/22/2024 8:08 AM SHIPPER AND RECEIVING Hermelindo Butler MD LAB BLOOD ORDER ELANA Final Result Performing Organization Address City/[facility] Co de Phone Number [facility] Department [place] [address] * aPTT (06/22/2024 7:20 AM SHIPPER AND RECEIVING) aPTT 29 28 - 38 sec Comment: Interpretive Data Heparin therapeutic range: 66.0 - 100.0 seconds. Range based on correlation with therapeutic heparin activity range of 0.3 - 0.7 Units/mL. Current interpretive data was last revised on 2023. Blood 06/22/2024 7:20 AM SHIPPER AND RECEIVING 06/22/2024 9:50 AM SHIPPER AND RECEIVING Hermelindo Butler MD LAB BLOOD ORDER ELANA Final Result Performing Organization Address City/[facility] Co de Phone Number [facility] Department [place] [address] * Protime-INR (06/22/2024 7:20 AM SHIPPER AND RECEIVING) PT 10.9 9.7 - 13.0 sec INR 1.01 0.90 - 1.20 [facility] Comment: Interpretive data Oral anticoagulant therapeutic ranges: Venous thromboembolism prophylaxis or treatment: 2.0-3.0 CARDIOLOGY Standard range: 2.0-3.0 High-intensity range: 2.5-3.5 Refer to indication-specific guidelines for appropriate target ranges for prosthetic heart valve replacement. Current interpretive data was last revised on 2019. Blood 06/22/2024 7:20 AM SHIPPER AND RECEIVING 06/22/2024 9:50 AM SHIPPER AND RECEIVING us Hermelindo Butler MD LAB BLOOD ORDER ELANA Final Result [facility] Department [place] [address] * (ABNORMAL) Protein electrophoresis with reflex, serum (06/22/2024 7:20 AM SHIPPER AND RECEIVING) Protein, sr 5.9(L) 6.2 - 8.2 g/dL Albumin 3.7 3.2 - 5.0 g/dL [facility] Alpha-1 globulin 0.3 0.2 - 0.4 g/dL [facility] Alpha-2 globulin 0.7 0.5 - 1.0 g/dL [facility] Beta-1 globulin 0.5 0.3 - 0.6 g/dL [facility] Beta-2 globulin 0.3 0.2 - 0.6 g/dL [facility] Gamma globulin 0.4(L) 0.5 - 1.7 g/dL [facility] SPEP interp Please see comment [facility] Comment: No apparent monoclonal peak Decreased gamma globulins Electrophoretic pattern appears similar to previous sample 05-19-24 See immunotyping for further information Reviewed and signed by Fernando Nunez MD, PhD 06/23/2024 Immunotyping See Immunotyping Results [facility] Blood 06/22/2024 7:20 AM SHIPPER AND RECEIVING 06/22/2024 9:55 AM SHIPPER AND RECEIVING us Hermelindo Butler MD LAB BLOOD ORDER ELANA Final Result Performing Organization Address [facility] de Phone Number [facility] [place] [address] * Magnesium (06/22/2024 7:20 AM SHIPPER AND RECEIVING) Magnesium 2.2 1.4 - 2.5 mg/dL Blood 06/22/2024 7:20 AM SHIPPER AND RECEIVING 06/22/2024 8:12 AM SHIPPER AND RECEIVING us Hermelindo Butler MD LAB BLOOD ORDER ELANA Final Result Performing Organization Address [facility] de Phone Number [facility] [place] [address] * Lactate dehydrogenase (LD) (06/22/2024 7:20 AM SHIPPER AND RECEIVING) Lactate dehydrogenase (LDH) 157 100 - 250 Units/L Blood 06/22/2024 7:20 AM SHIPPER AND RECEIVING 06/22/2024 8:12 AM SHIPPER AND RECEIVING us Hermelindo Butler MD LAB BLOOD ORDER ELANA Final Result Performing Organization Address City/[facility] de Phone Number [facility] [place] [address] * Gamma GT (06/22/2024 7:20 AM SHIPPER AND RECEIVING) GGT 30 10 - 50 Units/L Blood 06/22/2024 7:20 AM SHIPPER AND RECEIVING 06/22/2024 8:12 AM SHIPPER AND RECEIVING us Hermelindo Butler MD LAB BLOOD ORDER ELANA Final Result [facility] [place] [address] * (ABNORMAL) IgA (06/22/2024 7:20 AM SHIPPER AND RECEIVING) Immunoglobulin A <50(L) 70 - 400 mg/dL Blood 06/22/2024 7:20 AM SHIPPER AND RECEIVING 06/22/2024 9:49 AM SHIPPER AND RECEIVING Hermelindo Butler MD LAB BLOOD ORDER ELANA Final Result Performing Organization Address [facility] [place] [address] * (ABNORMAL) IgM (06/22/2024 7:20 AM SHIPPER AND RECEIVING) Immunoglobulin M <25(L) 40 - 230 mg/dL Blood 06/22/2024 7:20 AM SHIPPER AND RECEIVING 06/22/2024 9:49 AM SHIPPER AND RECEIVING us Hermelindo Butler MD LAB BLOOD ORDER ELANA Final Result Performing Organization Address City/[facility] Co de Phone Number [facility] [place] [id number] * (ABNORMAL) IgG (06/22/2024 7:20 AM SHIPPER AND RECEIVING) Immunoglobulin G 423(L) 700 - 1,600 mg/dL Blood 06/22/2024 7:20 AM SHIPPER AND RECEIVING 06/22/2024 9:49 AM SHIPPER AND RECEIVING us Hermelindo Butler MD LAB BLOOD ORDER ELANA Final Result [facility] [place] [address] * (ABNORMAL) Comprehensive metabolic panel (06/22/2024 7:20 AM SHIPPER AND RECEIVING) Sodium 141 135 - 145 mmol/L Potassium, pl 4.1 3.3 - 4.9 mmol/L [facility] Chloride 104 97 - 110 mmol/L [facility] CO2 31 22 - 32 mmol/L [facility] Anion gap 6 2 - 15 mmol/L [facility] BUN 24 6 - 25 mg/dL [facility] Creatinine 1.18 0.80 - 1.30 mg/dL [facility] Glucose 111 70 - 199 mg/dL [facility] Comment: Interpretive Data Fasting glucose >/= 126 [...] 2022. Calcium 9.5 8.5 - 10.3 mg/dL [facility] Bilirubin, total 0.7 0.1 - 1.2 mg/dL [facility] Protein, pl 6.3(L) 6.5 - 8.5 g/dL [facility] Albumin 3.8 3.5 - 5.0 g/dL [facility] Alk phos 63 40 - 130 Units/L [facility] ALT 18 7 - 55 Units/L [facility] AST 20 10 - 50 Units/L [facility] Blood 06/22/2024 7:20 AM SHIPPER AND RECEIVING 06/22/2024 8:12 AM SHIPPER AND RECEIVING us Hermelindo Butler MD LAB BLOOD ORDER ELANA Final Result [facility] Department [place] [address] * Hepatitis C antibody (10/16/2021 9:50 AM CDT) Hep C Ab Nonreactive Nonreactive [facility] Comment:Antibodies to HCV no t detected. Does NOT exclude the possibility of recent exposure to HCV. Blood 10/16/2021 9:50 AM CDT 10/16/2021 11:22 AM CDT Hermelindo dupree MD LAB MICROBIOLOGY - GENERAL ORDERABLES Edited Result - Final [facility] [place] [address] from Last 3 Months or Most Recently Relevant to Health Maintenance Insurance MEDICARE AETNA SENIOR SUPPLEMENT MEDICARE AETNA SENIOR SUPPLEMENT MEDICARE AETNA SENIOR SUPPLEMENT Advance Directives For more information, please contact: [phone] Documents on File Type Date Recorded Patient Scarf Gluer Expl anation ADVANCE DIRECTIVE 11/29/2017 11:05 AM FOX R OF [place]OL[place] REPAIRER ADVANCE DIRECTIVE 11/12/2017 3:59 PM POWER OF CUPOLA REPAIRER * Full Code (Latest Code Status on [...] 9:21 AM 05/30/2021 1:44 PM Care Teams Defective Cigarette Slitter Relationship Specialty Start Date End Date Jatin Gamble MD [address] [place] [address] PCP - General 10/07/16 Hermelindo Butler MD [address] [place] [address] [facility] 12/02/17 Roberto Rojo MD [address] [place] [address] [facility] 12/02/17 Jatin Gamble MD [address] [place] [address] Referring Physician Internal Medicine 12/02/17 Lyndsey Fagan NP [address] [place] [address] Nurse Practitioner Medical Oncology 08/03/20 Erlin Servin MD [address] [place] [address] Consulting Physician Otolaryngology 10/04/22 [place] [address] [place] [address] Consulting Physician Urology 05/28/23
--- NOTE | 2024-09-10 21:10 | PC.NURSE ---
BLOOD CULTURES DRAWN FROM RIGHT CHEST INFUSAPORT AND GIVEN TO LAB.
[2024-09-10] MEDS: SODIUM CHLORIDE 0.9% IV 1,000 ML 999 ML IV CONT (21:14)
[2024-09-10] MEDS: PIPERACILLN/TAZ 3.375GM/NS50ML 3.375 GM/50 ML BAG IVPB (21:17)
[2024-09-10 21:23] LABS: Add Urine Microscopic? YES; Appearance Urine Clear (Clear); Basophils Absolute Auto 0.02 K/mm3 (0.00-0.10); Basophils Percent Auto 0.1 % (0.0-1.0); Bilirubin Urine Negative (Negative); Blood Urine 2+ (Negative); Color Urine Light Yellow (Yellow); Glucose Urine UA Negative (Negative); Hematocrit 34.8 % (37.0-46.0); Hemoglobin 11.2 g/dL (12.4-15.3); Immature Granulocyte Absolute 0.11 K/mm3 (0.00-0.00); Immature Granulocyte Percent A 0.8 % (0.0-0.0); Ketones Urine Negative (Negative); Leukocyte Esterase Ur 1+ LEU/UL (Negative); Lymphocytes Absolute Auto 0.57 K/mm3 (1.10-4.50); Mean Corpuscular HGB Conc 32.2 g/dL (32-36); Mean Corpuscular Hemoglobin 31.5 pg (27.0-31.0); Monocytes Absolute Auto 0.83 K/mm3 (0.10-0.90); Monocytes Percent Auto 5.9 % (2.0-11.0); Neutrophils Absolute Auto 12.64 K/mm3 (1.70-7.20); Neutrophils Percent Auto 89.2 % (50.0-70.0); Nitrate Urine Negative (Negative); Platelet Count Result 165 K/mm3 (150-420); Protein Urine 1+ (Negative); Red Blood Count 3.55 M/mm3 (4.70-6.10); Red Cell Distribution Width 15.9 % (11.6-14.4); Specific Grav Ur 1.015 (1.010-1.020); Urobilinogen Urine 0.2 mg/dL (0.2-1.0); White Blood Count 14.2 K/mm3 (4.8-10.8); pH Urine 5.5 (5.0-8.0)
--- NOTE | 2024-09-10 21:23 | PC.NURSE ---
Pt resting w/ at bedside, IVF infusing per order, awaiting lab results and POC discussed w/ pt and his .
[2024-09-10 21:30] LABS: Bacteria Urine 1+ /hpf; Squamous Epithelial Cell Urine None seen /hpf (Few); WBC Urine 21-30 /hpf (0-3)
[2024-09-10 21:40] LABS: Alanine Aminotransferase 15 U/L (16-63); Albumin Level 3.3 g/dL (3.4-5.0); Alkaline Phosphatase 75 U/L (46-116); Anion Gap 10 mmol/L (4-12); Aspartate Amino Transferase 14 U/L (15-37); Bilirubin,Total 1.2 mg/dL (0.00-1.00); Blood Urea Nitrogen 44 mg/dL (7-18); Calcium 8.9 mg/dL (8.5-10.1); Carbon Dioxide 26 mmol/L (21-32); Chloride 101 mmol/L (98-108); Estimated CRCL calculation 30 ml/min; Estimated Glomerular Filt Rate 24; Glucose 182 mg/dL (70-99); Osmolality Calculated 300 mOsm/kg (285-295); Potassium 3.5 mmol/L (3.5-5.1); Sodium 137 mmol/L (136-145); Total Protein 6.3 g/dL (6.4-8.2)
[2024-09-10 21:43] LABS: Lactic Acid Reflex 1.4 mmol/L (0.4-2.0)
[2024-09-10 21:52] VITALS: BP 132/62; PULSE 87; RESP 20; O2SAT 97
--- NOTE | 2024-09-10 21:55 | PC.NURSE ---
Discussed POC for tranfer to urology w/ pt and . Pt has urologist Dr Julian Valdez at [facility], will try to call for transfer to [facility].
--- NOTE | 2024-09-10 22:34 | PC.NURSE ---
Pt will transfer to [facility] to have procedure done tonight, [facility] has bed available for pt. Pt and agreeable to transfer to [facility].
--- NOTE | 2024-09-10 22:56 | PC.NURSE ---
Call back from Snehal at [facility], updated report given and will send for bed priority to SOFIE Norris. Will call back when a bed opens. Pt and updated on POC.
--- NOTE | 2024-09-10 23:35 | PC.NURSE ---
Call back from [facility] w/ bed assignment at [facility] and number given to call report. Pt updated on Rm info.
[2024-09-10 23:37] VITALS: BP 126/75; PULSE 81; RESP 16; TEMP 36.9; O2SAT 97
--- NOTE | 2024-09-10 23:40 | PC.NURSE ---
Report called to Snehal at [facility], pt will go to Rm 2601 Bed A.
[2024-09-11 00:30] VITALS: BP 139/84; PULSE 82; RESP 18; TEMP 36.8; O2SAT 100
--- NOTE | 2024-09-13 14:00 | PC.NURSE ---
PRELIMINARY BLOOD CULTURE NO GROWTH TO DATE
--- NOTE | 2024-09-13 14:01 | PC.NURSE ---
PRELIMINARY URINE CLEAN CATCH CULTURE IN PROGRESS
== END 2024-09-11 00:33 | disposition short-term general hospital (02) ==
PROVIDERS: Emergency Provider Emergency Medicine; PCP Internal Medicine
DX: N39.0 Urinary tract infection, site not specified (principal); N20.1 Calculus of ureter; N17.9 Acute kidney failure, unspecified; N21.0 Calculus in bladder; R78.81 Bacteremia; I10 Essential (primary) hypertension
CPT/HCPCS: 36415; 71045; 74176; 80053; 81001; 83605; 84484; 85025; 85055; 87040; 87086; 93005; 96365; 99285; J2543; J7030

== ENCOUNTER 2024-09-20 13:02 | Outpatient (NON) | payer MEDICARE, SELFPAY ==
[2024-09-20 13:12] LABS: Basophils Absolute Auto 0.04 K/mm3 (0.00-0.10); Basophils Percent Auto 0.6 % (0.0-1.0); Eosinophils Percent Auto 1.4 % (1.0-6.0); Hematocrit 33.5 % (37.0-46.0); Hemoglobin 10.7 g/dL (12.4-15.3); Immature Granulocyte Absolute 0.08 K/mm3 (0.00-0.00); Immature Granulocyte Percent A 1.1 % (0.0-0.0); Lymphocytes Absolute Auto 0.73 K/mm3 (1.10-4.50); Lymphocytes Percent Auto 10.2 % (18.0-42.0); Mean Corpuscular HGB Conc 31.9 g/dL (32-36); Mean Corpuscular Hemoglobin 31.3 pg (27.0-31.0); Mean Platelet Volume 9.8 fl (8.7-11.0); Monocytes Absolute Auto 0.45 K/mm3 (0.10-0.90); Monocytes Percent Auto 6.3 % (2.0-11.0); Neutrophils Absolute Auto 5.76 K/mm3 (1.70-7.20); Neutrophils Percent Auto 80.4 % (50.0-70.0); Platelet Count Result 219 K/mm3 (150-420); Red Blood Count 3.42 M/mm3 (4.70-6.10); Red Cell Distribution Width 14.2 % (11.6-14.4); White Blood Count 7.2 K/mm3 (4.8-10.8)
[2024-09-20 14:15] LABS: Alanine Aminotransferase 17 U/L (16-63); Albumin Level 2.9 g/dL (3.4-5.0); Alkaline Phosphatase 66 U/L (46-116); Anion Gap 6 mmol/L (4-12); Aspartate Amino Transferase 11 U/L (15-37); Bilirubin,Total 0.3 mg/dL (0.00-1.00); Blood Urea Nitrogen 30 mg/dL (7-18); Calcium 8.6 mg/dL (8.5-10.1); Carbon Dioxide 34 mmol/L (21-32); Chloride 105 mmol/L (98-108); Estimated Glomerular Filt Rate 39; Glucose 95 mg/dL (70-99); Osmolality Calculated 306 mOsm/kg (285-295); Potassium 4.2 mmol/L (3.5-5.1); Sodium 145 mmol/L (136-145); Total Protein 5.3 g/dL (6.4-8.2)
--- OUTSIDE RECORDS SUMMARY | 2024-09-20 14:19 | XMS_ITS ---
Author Organization [facility] Address [address] [place] [address] Care Team Providers Care Ammunition Storage Superintendent Name Role Phone Jatin Gamble MD Primary Care Provider Hermelindo Butler MD Unavailable Roberto Rojo MD Unavailable [phone] Jatin Gamble MD Unavailable [phone] Lyndsey Fagan NP Unavailable Erlin Servin MD Unavailable Julian Valdez MD Unavailable Salvador Norris MD Unavailable Miscellaneous, Not In File Unavailable Unava ilable Active Problems Patient Care Coordination No te Formatting of this note is d ifferent from the original. BMT Inpatient Care Coordination Overview Diagnosis [place] [address] Treatment Plan Clinical Trial [id number] Rahel Reason for Admission JOHN Transplant/IEC Planning BMT/IEC [...] Medical Assistants Post-Discharge Follow-Up Living Situation/Distance from [facility] Hopper (45 min) Caregiver Self, Lab/Transfusion Frequency Phone: Fax: Venous Access & Care implanted vascular device Local Oncologist Contact Phone: Fax: Post-Discharge Office Visit (H30) HIRAM 08/31 Miscellaneous Notes: Problem Noted Date Diagnosed Date Bacteremia due to Enterococcus 09/15/2024 Ureteral stone 09/11/2024 Oliguria 09/11/2024 Elevated serum creatinine 08/23/2024 Iron deficiency anemia [...] is a risk of orbital injury and TELEVISION TECHNICIAN injury which could result in blindness or [...] this. Assessment & Plan (07/09/2022 7:42 PM CRIMP SETTER): I talked with him quite a bit [...] weeks. Assessment & Plan (05/26/2022 4:16 PM CRIMP SETTER): He does have pretty significant sinusitis and [...] day. Assessment & Plan (05/26/2022 4:17 PM CRIMP SETTER): It is very possible that his cough could be due to sinusitis also. Hopefully that will continue to improve as we treat. He understands. Immunocompromised 11/13/2021 Multiple myeloma not having achieved remission 0 10/28/2021 Cancer Staging:Clinical stage from 10/16/2021:RISS Stage II(Fnaj-5-xgrssqgrdoztw (mg/L): 3.7, Albumin (g/dL): 4.2, ISS: Stage [...] and Dexamethasone in June 2021 Clinical trial [id number] initiated on 10/29/21; C46D1 08/03/24. BMT following [...] he got a TTE on 10/19 at [place] however unclear why not currently in the system - May need to repeat TTE prior to treatment if results unavailable - Continue OI ppx with acyclovir 400mg BID - Begin trial [id number], a Bispecific Antibody Targeting BCMA treatment - [...] he got a TTE on 10/19 at [place] however unclear why not currently in the system - May need to repeat TTE prior to treatment if results unavailable - Continue OI ppx with acyclovir 400mg BID - Begin trial [id number], a Bispecific Antibody Targeting BCMA treatment - [...] BID Assessment & Plan (05/31/2021 10:51 AM CRIMP SETTER): Continue home pepcid, asx Renal mass 05/30/2021 Assessment & Plan (05/31/2021 10:51 AM CRIMP SETTER): Admitted for observation after L renal mass [...] 07/17/2023 Assessment & Plan (05/31/2021 10:52 AM CRIMP SETTER): Follows with oncology on daratumumab monotherapy -counts [...] blood in urine Follow up pathology from hekebqhtp-npz-fbujhlhf high-grade papillary urothelial carcinoma (grade 2) --follow [...] blood in urine Follow up pathology from xckrbfqtj-uyp-ijhjknen high-grade papillary urothelial carcinoma (grade 2) --follow [...] supplementation Assessment & Plan (05/31/2021 10:51 AM CRIMP SETTER): Stable on home losartan, nebivolol, triamterene-HCTZ 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/23/2013 Current Treatment and Therapy Plans - INPT/OUTPT - [facility] - MM - [id number] - Arm B - Dose Expansion Phase - TNB-383B Monotherapy* Plan Start Date:10/29/2021 Plan Provider:Hermelindo Butler MD Linked Problems Multiple myeloma in relapse (HCC) Treatment Medications Current Day (Day 1 , Cycle 48 - Planned for 09/28/2024) Next Day (Day 1, Cycle 49 - Planned for 10/19/2024) INV-WU_[facility] (/TNB-383B.2024) Etentamig (TNB-383B/ABBV-383) IVPB in 50 mL (ANTI-LAG-3)INV-WU_[facility] Etentamig (TNB-383B/ABBV-383) (TNB-383B.2024)IN V-WUSM_[facility] sodium chloride 0.9 % INV-[facility] Etentamig (TNB-383B/ABBV-383) (IVSS-FREE FORMULATION) (TNB-383B.2024) 40 mg in sodium chloride 0.9% 30 mL IVPBINV-WUSM_[facility]J sodium chloride 0.9 % flush IVPB 20 mL INV-WU_[facility]J Etentamig (TNB-383B/ABBV-383) (IVSS-FREE FORMULATION) (TNB-383B.2024) 40 mg in sodium chloride 0.9% 30 mL IVPBINV-WU_BJ sodium chloride 0.9 % flush IVPB 20 [...]
--- OUTSIDE RECORDS SUMMARY | 2024-09-20 14:19 | XMS_ITS | Encounter Summary ---
Author Organization [facility] Healthcare Address [address] [place] [address] Care Team Providers Care Corporate Sales Representative Name Role Phone Jatin Gamble MD Primary Care Provider Hermelindo Butler MD Unavailable Roberto Rojo MD Unavailable [phone] Jatin Gamble MD Unavailable [phone] Lyndsey Fagan NP Unavailable [phone] Erlin Servin MD Unavailable [phone] Julian Valdez MD Unavailable [phone] Salvador Norris MD Unavailable Miscellaneous, Not In File Unavailable Unava ilable Encounter Details Date Type Department Care Team (Late st Contact Info) Description 09/15/2024 Orders Only [facility] [address] [place] [address] Preeti Wayne rosalio Social History Tobacco Use Types Packs/Day Years Used Date Smoking Tobacco: Never Smokeless Tobacco: Never Alcohol Use Standard Drinks/Week Comments No 0 (1 standard drink = 0.6 oz pur e alcohol) [facility] Utilities Answer Date Recorded In the past 12 months has e electric, gas, oil, or water company threatened to shut off services in your home? No 09/13/2024 Social Connection and Isolat ion Panel [NHANES] Answer Date Recorded In a typical week, how many times do you talk on the phone with family, friends, or neighbors? More than three times a week 09/13/2024 How often do you get togethe r with friends or relatives? More than three times a week 09/13/2024 How often do you attend chur ch or alevism services? More than 4 times per year 09/13/2024 Do you belong to any clubs o r organizations such as mandaen groups, unions, fraternal or athletic groups, or school groups? No 09/13/2024 How often do you attend meet ings of the clubs or organizations you belong to? Never 09/13/2024 Are you , , di vorced, , never , or living with a partner? 09/13/2024 AUDIT-C Answer Date Recorded Q1: How often do you have a drink containing alcohol? Never 06/24/2023 Q2: How many drinks containi ng alcohol do you have on a typical day when you are drinking? Patient does not drink Q3: How often do you have si x or more drinks on one occasion? Never 06/24/2023 Overall Financial Resource Strain (CARDIA) Answe r Date Recorded How hard is it for you to pa y for the very basics like food, housing, medical care, and heating? Not very hard 09/13/2024 Hunger Vital Sign Answer Date Recorded Within the past 12 months, y ou worried that your food would run out before you got the money to buy more. Never true 09/14/19 25 Within the past 12 months, t he food you bought just didn't last and you didn't have money to get more. Never true 09/13/2024 PRAPARE - Transportation Answer Date Re corded In the past 12 months, has l ack of transportation kept you from medical appointments or from getting medications? No 12/2024 In the past 12 months, has l ack of transportation kept you from meetings, work, or from getting things needed for daily living? No 09/13/2024 Housing Stability Vital Sign Answer Patricio e Recorded In the last 12 months, was t here a time when you were not able to pay the mortgage or rent on time? No 09/13/2024 In the past 12 months, how m any times have you moved where you were living? 0 09/13/2024 At any time in the past 12 m [facility], were you homeless or living in a chcf (including now)? No 09/13/2024 Personal Safety Answer Date Recorded Have you ever been in or are you currently in a harmful physical or emotional relationship or is someone making you feel afraid or unsafe? 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 OPERATIONS Gender Identity Not on file Sexual Orientation Not on file documented as of this encounter Plan of Treatment Not on file documented as of this encounter Visit Diagnoses Not on filedocumented in this encounter Care Teams Corporate Sales Representative Relationship Specialty Start Date End Date Jatin Gamble MD [address] [place] [address] PCP - General 10/07/16 Hermelindo Butler MD [address] [place] [address] [facility] 12/02/17 Roberto Rojo MD [address] [address] [facility] and Oncology 12/02/17 Jatin Gamble MD [address] [place] [address] Referring Physician Internal Medicine 12/02/17 Lyndsey Fagan NP [address] [place] [address] Nurse Practitioner Medical Oncology 08/03/20 [place] [address] Consulting Physician Otolaryngology 10/04/22 [place] [address] [place] [address] Consulting Physician Urology 05/28/23 Salvador Norris MD [address] [place] [address] Consulting Physician Infectious Diseases 09/15/24 Miscellaneous, Not In File 09/15/24 documented as of this encounter
--- OUTSIDE RECORDS SUMMARY | 2024-09-20 14:19 | XMS_ITS | Continuity of Care Document ---
Author Organization [email or web address] [facility] Address [address] [facility] [address] [place] [address] Phone Care Team Providers Care Byproduct Engineer Name Role Phone Cesar Vora MD, FACS [...] ER 100 mg tablet,extended release - Active [place] 5 mg-325 mg tablet take 1 tablet [...] Copied on Encounter Office/outpa tient Visit, [facility], [address] [place] [address] [address], [place], [place], [id number], [place] tel:[phone] SEC [place] Eyelid infections (chief complaint) Episcleritis of left eyeOther vitreous opacities, bilateralOth er visual disturbances 2 Vielka Cesar. [address] [facility], [address], [place], [place], [address], [place]. tel:[phone] Specialist: Hermelindo Lopez MD, [address] [facility] [address], [place], [address]. tel:[phone] Provider: Vicky Ray OD, [address] [facility], [place], [address]. tel:[phone] [facility], [address], [place], [place], [address], [place] tel:[phone] SEC [place] Professional yag pc OS evaluation (chief complaint) Bilateral artificial lens implantOther secondary cataract, left eyeCyst of right eyelidPVD (posterior vitreous detachment), left eyeBilateral ocular hypertension Oct-1 8 Jose R Franco. [address] [facility], [address], [place], [place], [address], [place]. tel:[phone] Referring Provider: Michele Orellana OD A, [address] [place] [address] Eye [facility], [place], [address]. tel:[phone] [facility], [address] [place], [place] [address], [place], [place], [address], [place] tel:[phone] SEC Steven Sifuentes Yag PC Eval (chief complaint) No Information 7 Lyman Cesar. [address] [place], [place] [address], [address], [place], [place], [address], [place]. tel:[phone] Referring Provider: Michele Orellana OD A, [address] [place] [address], [place], [address]. tel:[phone] [facility]Control [facility], [address], [place], [place], [address], [place] tel:[phone] SEC [place] Petrona Coybienvenidorosalio No Information 7 Vielka Cesar. Formerly named [facility] [address], [address], [place], [place], [address], [place]. tel:[phone] uControl [facility], Formerly named [facility] [address], [place], [place], [address], [place] tel:[phone] [facility] No Information 5 Vielka Cesar. Formerly named [facility] [address], [address], [place], [place], [address], [place]. tel:[phone] Referring Provider: Michele Orellana OD A, [address] [place] [address], [place], [address]. tel:[phone] [facility] [facility], [address] [place] [address] [address], [place], [place], [address], [place] tel:[phone] SEC Steven N Bear No Information 5 Vielka Guerrero. [address] [facility], [address], [place], [place], [address], [place]. tel:[phone] Referring Provider: Michele Acevedo, [address] [facility] Eye [facility], [place], [address]. tel:[phone] [facility], [address] [place] [address] [address], [place], [place], [address], [place] tel:[phone] [facility] No Information 5 Vielka Guerrero. Formerly named [facility] [address] [facility], [address], [place], [place], [address], [place]. tel:[phone] Referring Provider: Michele Acevedo, [address] [facility], [place], [address]. tel:[phone] [facility], [address] [place] [address] [address], [place], [place], [address], [place] tel:[phone] SEC Steven N eBar Cataract Evaluation (chief complaint) No Information 5 Vielka Guerrero. [address] [place] [address] [address] [facility], [address], [place], [place], [address], [place]. tel:[phone] Referring Provider: Michele Acevedo, [address] [place], [address]. tel:[phone] Family History Family Member Type Diagnosis Age At Onset Mother Problem (finding) diabetes melli tus in first degree relative Mother Problem (finding) glaucoma Payers Payer name Insurance type Covered republican ID Authoriza tion(s) [place] [id number] Aetna Mdcr Supp CI [id number] Social History Type Description Quantity Date Captured [...]
--- OUTSIDE RECORDS SUMMARY | 2024-09-20 14:19 | XMS_ITS | Encounter Summary ---
Author Organization [facility] Healthcare Address [address] [place] [address] Care Team Providers Care Freight Flagman Name Role Phone Jatin Gamble MD Primary Care Provider Hermelindo Butler MD Unavailable Roberto Rojo MD Unavailable Jatin Gamble MD Unavailable [phone] Garry Dukes MD Unavailable [phone] Lyndsey Fagan NP Unavailable Erlin Servin MD Unavailable Julian Valdez MD Unavailable Salvador Norris MD Unavailable Miscellaneous, Not In File Unavailable Unava ilable Encounter Details Date Type Department Care Team (Late st Contact Info) Description 11/22/2021 Documentation [facility] Case Management [address] [place] [address] Forrest Epstein RN Social History Tobacco Use Types Packs/Day Years Used Date Smoking Tobacco: Never Smokeless Tobacco: Never Alcohol Use Standard Drinks/Week Comments No 0 (1 standard drink = 0.6 oz pur e alcohol) Sex and Gender Information Value Date Recorded Sex Assigned at Not on file 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 Gender Identity Not on file Sexual Orientation [...] documented as of this encounter Care Teams Freight Flagman Relationship Specialty Start Date End Date Jatin Gamble MD [address] [place] [address] PCP - General 10/07/16 Hermelindo Butler MD [address] [place] [address] [facility] 12/02/17 Roberto Rojo MD [address] [place] [address] [facility] and Oncology 12/02/17 Jatin Gamble MD [address] [place] [address] Referring Physician Internal Medicine 12/02/17 Garry Dukes MD [address] [place] [address] Referring Physician Urology 12/02/17 05/27/23 Lyndsey Fagan NP [address] [place] [address] Nurse Practitioner Medical Oncology 08/03/20 Erlin Servin MD [address] [place] [address] Consulting Physician Otolaryngology 10/04/22 [place] [address] [place] [address] Consulting Physician Urology 05/28/23 Salvador Norris MD [address] [place] [address] Consulting Physician Infectious Diseases 09/15/24 Miscellaneous, Not In File 09/15/24 documented as of this encounter
--- OUTSIDE RECORDS SUMMARY | 2024-09-20 14:19 | XMS_ITS | Clinical Summary ---
Author Organization [facility] Address [address] [place] [address] Care Team Providers Care Mitigation Supervisor Name Role Phone Unavailable Primary Care Provider [...] Vaccines (1 of 2) 2002 Pneumococcal Vaccine: 50+ Ye ars (1 of 1 - PCV) [...]
--- OUTSIDE RECORDS SUMMARY | 2024-09-20 14:19 | XMS_ITS | Encounter Summary ---
Author Organization [facility] Address [address] [place] [address] Phone Care Team Providers Care Customer Service Dispatcher Name Role Phone Jatin Gamlbe MD Primary Care Provider Hermelindo Butler MD Unavailable Roberto Rojo MD Unavailable Jatin Gamble MD Unavailable Garry Dukes MD Unavailable [phone] Lyndsey Fagan NP Unavailable Erlin Servin MD Unavailable [phone] Julian Valdez MD Unavailable Salvador Norris MD Unavailable Miscellaneous, Not In File Unavailable Unava ilable Encounter Details Date Type Department Care Team (Latest Contact Info) Description 10/16/2017 Orders Only [facility] CONVERSION Scanning, Provider Social History Tobacco Use Types Packs/Day Years Used Date Smoking Tobacco: Never Assessed Sex and Gender Information Value Date Recorded Sex Assigned at Not on file 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 Gender Identity Not on file Sexual [...] documented as of this encounter Care Teams Customer Service Dispatcher Relationship Specialty Start Date End Date Jatin Gamble MD [address] [place] [address] PCP - General 10/07/16 Hermelindo Butler MD [address] [place] [address] [facility] 12/02/17 Roberto Rojo MD [facility] [address] [place] [address] [facility] 12/02/17 Jatin Gamble MD [address] [place] [address] Referring Physician Internal Medicine 12/02/17 Garry Dukes MD [address] [place] [address] Referring Physician Urology 12/02/17 05/27/23 Lyndsey Fagan NP [address] [place] [address] Nurse Practitioner Medical Oncology 08/03/20 Erlin Servin MD [address] [place] [address] Consulting Physician Otolaryngology 10/04/22 [place] [address] [place] [address] Consulting Physician Urology 05/28/23 Salvador Norris MD [id number] [place] [address] Consulting Physician Infectious Diseases 09/15/24 Miscellaneous, Not In File 09/15/24 documented as of this encounter
--- OUTSIDE RECORDS SUMMARY | 2024-09-20 14:20 | XMS_ITS | Referral Summary ---
Author Organization [facility] Address [address] [place] [address] Care Team Providers Care Sweater Designer Name Role Phone Jatin Gamble MD Primary Care Provider Hermelindo Butler MD Unavailable Roberto Rojo MD Unavailable [phone] Jatin Gamble MD Unavailable [phone] Lyndsey Fagan NP Unavailable [phone] Erlin Servin MD Unavailable [phone] Julian Valdez MD Unavailable Salvador Norris MD Unavailable Miscellaneous, Not In File Unavailable Unava ilable Encounters Date Type Department Care Team Description 09/15/2024 Orders Only [facility] [address] [place] [address] Preeti Wayne RPh 09/11/2024 1:43 AM CDT - 09/15/2024 5:22 PM CDT Hospital Encounter [facility] [address] [place] [address] Emory Santana MD [place], MD Bonifacio Carrillo, Choco Murcia, DO Oliguria (Primary Dx); Bacteremia Discharge Disposition: Discharge to home, home health skilled care 09/10/2024 Orders Only Urology Yesika Capone PA Elevated prostate specific antigen (PSA) (Primary Dx) 09/07/2024 Orders Only [facility] Bone Marrow Transplant [facility] [address] [phone] Hermelindo Hill MD 09/06/2024 Orders Only [facility]row Trans[facility] [address] [facility] [place] [address] Lyndsey Fagan NP 08/31/2024 8:45 AM CDT Clinical Support [facility] - Lab Collection [facility] [address] [place] [address] Multiple myeloma in relapse (HCC); Multiple myeloma not having achieved remission (HCC); Multiple myeloma, remission status unspecified (HCC) 08/31/2024 10:00 AM CDT Infusion [facility] - Infusion [address] [place] [address] Multiple myeloma in relapse (HCC) (Primary Dx); Multiple myeloma in remission (HCC) 08/31/2024 9:00 AM CDT Office Visit [facility] Bone Marrow Transplant [address] [place] [phone] Hermelindo Hill MD Multiple myeloma in relapse (HCC) (Primary Dx); Multiple myeloma in remission (HCC) 08/31/2024 8:15 AM CDT Clinical Support [facility] Oncology Lab [address] [place] [phone] Multiple myeloma not having achieved remission (HCC); Multiple myeloma in remission (HCC) 08/30/[address] [facility] Scanning, Provider 08/27/2024 Documentation Nephrology Ani Anne LCSW 08/27/2024 Orders Only [facility] Bone Marrow Transplant [address] [place] [phone] Hermelindo Hill MD Multiple myeloma not having achieved remission (HCC) (Primary Dx); JOHN (acute kidney injury) 08/23/2024 11:13 PM CDT - 08/26/2024 4:50 PM CDT Hospital Encounter [facility] [address] [place] [address] Hermelindo Hill MD [place], Thabet J.M., MD JOHN (acute kidney injury) (Primary Dx) Discharge Disposition: Discharge to home or self care 08/25/2024 6:50 AM CDT Ancillary Procedure [facility] Vascular Lab IP 1 [facility] [address] [place] [address] 08/23/2024 7:10 PM CDT - 08/23/2024 11:59 PM CDT Hospital Encounter [facility] Radiology 1 [facility] [place] [address] Discharge Disposition: Discharge to home or self care 08/23/2024 Orders Only [address] [phone] Hermelindo Hill MD 08/23/2024 Orders Only [facility] Bone Marrow Transplant [address] [place] [phone] Hermelindo Hill MD Multiple myeloma, remission status unspecified (HCC) (Primary Dx) 08/23/2024 5:24 PM CDT - 08/23/2024 11:59 PM CDT Hospital Encounter [facility] ([facility]) [address] [place] [address] Hermelindo Hill MD Elevated serum creatinine (Primary Dx); Multiple myeloma, remission status unspecified (HCC) Discharge Disposition: Discharge to home or self care 08/20/2024 Orders Only [facility] Scanning, Provider 08/10/2024 Orders Only [facility] Scanning, Provider 08/06/2024 Telephone [facility] Bone Marrow Transplant [address] [place] [phone] Lyndsey Fagan NP 08/06/2024 Orders Only [facility] Bone Marrow Transplant [address] [place] [phone] Lyndsey Fagan NP Multiple myeloma, remission status unspecified (HCC) (Primary Dx) 08/06/2024 1:45 PM NETWORK SUPPORT SPECIALIST Clinical Support [facility] - Lab Collection [facility] [address] [address] 08/06/2024 1:00 PM NETWORK SUPPORT SPECIALIST - 08/06/2024 11:59 PM NETWORK SUPPORT SPECIALIST Hospital Encounter [facility] 1 [place] [address] Multiple myeloma, remission status unspecified (HCC) Discharge Disposition: Discharge to home or self care 08/06/2024 Orders Only [facility] Bone Marrow Transplant [address] [place] [phone] Lyndsey Fagan NP JOHN (acute kidney injury) (Primary Dx) 08/06/2024 Orders Only [facility] Bone Marrow Transplant [address] [place] [phone] Hermelindo Hill MD Multiple myeloma, remission status unspecified (HCC) (Primary Dx) 08/06/2024 7:15 AM NETWORK SUPPORT SPECIALIST Clinical Support [facility] - Lab Collection [facility] [address] [address] Multiple myeloma in relapse (HCC) (Primary Dx); Multiple myeloma, remission status unspecified (HCC); JOHN (acute kidney injury) 08/06/2024 8:00 AM NETWORK SUPPORT SPECIALIST Infusion [facility] - Infusion [address] [facility] Floor [address] [place] [address] Multiple myeloma not having achieved remission (HCC) (Primary Dx); Hypogammaglobuline hakeem 08/03/2024 Orders Only [facility] Bone Marrow Transplant [facility] [address] [phone] Hermelindo Hill MD 08/03/2024 Orders Only [facility] Bone Marrow Transplant [address] [place] [phone] Hermelindo Hill MD 08/03/2024 Orders Only [facility] Bone Marrow Transplant [address] [place] [address] 6 [place] [phone] Hermelindo Hill MD 08/03/2024 9:30 AM NETWORK SUPPORT SPECIALIST Infusion [facility] - Infusion [address] [facility] Floor 6 [place] [address] Multiple myeloma in relapse (HCC) (Primary Dx); Multiple myeloma in remission (HCC) 08/03/2024 7:30 AM NETWORK SUPPORT SPECIALIST Clinical Support [facility] - Lab Collection [facility] Floor [address] [place] [address] Multiple myeloma in remission (HCC); Multiple myeloma, remission status unspecified (HCC); Multiple myeloma in relapse (HCC) 08/03/2024 8:30 AM NETWORK SUPPORT SPECIALIST Office Visit [facility] Bone Marrow Transplant [address] [place] [phone] Hermelindo Hill MD Multiple myeloma, remission status unspecified (HCC) (Primary Dx); Multiple myeloma in remission (HCC); Multiple myeloma in relapse (HCC) 08/02/2024 Telephone [facility] Bone Marrow Transplant [address] [place] [address] Lyndsey Fagan NP 07/30/2024 Telephone [facility] Bone Marrow Transplant [address] [place] [phone] Hermelindo Hill MD 07/27/2024 Telephone [facility] Bone Marrow Transplant [address] [place] [phone] Hermelindo Hill MD 07/26/2024 Orders Only [facility] Bone Marrow Transplant [address] [place] [phone] Hermelindo Hill MD 07/26/2024 Orders Only [facility] Bone Marrow Transplant [address] [place] [phone] Hermelindo Hill MD 07/26/2024 Telephone [facility] Bone Marrow Transplant [address] [place] [phone] Margaret Kay RMA Medical Question/Miscellan eous 07/13/2024 Telephone [facility] Bone Marrow Transplant [address] [place] [phone] Fadumo Tobar RN 07/13/2024 10:00 AM NETWORK SUPPORT SPECIALIST Infusion [facility] - Infusion [address] [place] [address] Floor [address] [place] [address] Multiple myeloma in relapse (HCC) (Primary Dx); Multiple myeloma in remission (HCC) 07/13/2024 8:00 AM NETWORK SUPPORT SPECIALIST Clinical Support [facility] - Lab Collection [address] [place] [address] Multiple myeloma in remission (HCC); Multiple myeloma in relapse (HCC); Multiple myeloma, remission status unspecified (HCC) 07/13/2024 9:00 AM NETWORK SUPPORT SPECIALIST Office Visit [facility] Bone Marrow Transplant [address] [place] [phone] Hermelindo Hill MD Multiple myeloma, remission status unspecified (HCC) (Primary Dx); Multiple myeloma in remission (HCC); Hypogammaglobuline hakeem 06/22/2024 Orders Only [facility] Bone Marrow Transplant [address] [place] [phone] Hermelindo Hill MD 06/22/2024 Orders Only [facility] Bone Marrow Transplant [address] [place] [phone] Hermelindo Hill MD Multiple myeloma in remission (HCC) (Primary Dx); Multiple myeloma in relapse (HCC) 06/22/2024 8:30 AM NETWORK SUPPORT SPECIALIST Infusion [facility] - Infusion [address] [place] [address] Multiple myeloma, remission status unspecified (HCC) (Primary Dx); Multiple myeloma in remission (HCC); Multiple myeloma in relapse (HCC) 06/22/2024 7:00 AM NETWORK SUPPORT SPECIALIST Clinical Support [facility] - Lab Collection [address] [facility] Floor [address] [place] [address] Multiple myeloma, remission status unspecified (HCC); Multiple myeloma in relapse (HCC) 06/22/2024 8:00 AM NETWORK SUPPORT SPECIALIST Office Visit [facility] Bone Marrow Transplant [address] [facility] 6 [place] [phone] Hermelindo Hill MD Multiple myeloma in relapse (HCC) (Primary Dx); Multiple myeloma, remission status unspecified (HCC); Hypogammaglobuline hakeem; Obesity, morbid (HCC) from Last 3 Months Allergies Active Allergy [...] a day 15 g 01/28/20 23 Active Additional Information Patient not taking.Reported on 09/11/2024 famotidine (PEPCID) 20 mg tablet Take 1 tablet (20 mg total) by mouth 2 (two) times a day Active allopurinoL (ZYLOPRIM) 100 mg tablet Take [...] daily 60 tablet 08/27/19 25 025 Active ampicillin 2,000 mg in sodium chloride 0.9% 100 mL IVPBIndications :Blood Stream/Endovasc ular Infection Infuse 2,000 mg into a venous catheter every 6 (six) hours for 30 minutes for 10 days at 200 mL/hr 09/16/19 25 025 Active nebivoloL (BYSTOLIC) 5 mg tablet 02/26/20 23 025 Discontinued budesonide (Pulmicort) 0.5 mg/2 mL nebulizer solutionIndicat ions:Chronic pansinusitis Mix one respule with 10 ml of normal saline for the right nostril and also with the left nostril using a bulb syringe 84 mL 06/03/20 23 025 Discontinued sodium chloride 0.9% 0.9 % irrigationIndic ations:Chronic pansinusitis Use as directed with Pulmicort 1000 mL 06/03/20 23 025 Discontinued clobetasoL (TEMOVATE) 0.05 % creamIndication s:Multiple myeloma in remission (HCC) Apply topically 2 (two) times a day 60 g 3 08/03/19 25 025 amLODIPine (NORVASC) 10 mg tablet Take 0.5 tablets (5 mg total) by mouth daily 15 tablet 08/28/19 25 025 Discontinued Active Problems Patient Care Coordination No te Formatting of this note is d ifferent from the original. BMT Inpatient Care Coordination Overview Diagnosis [place] Floor [id number] Treatment Plan Clinical Trial [id number] Ramesh Reason for Admission JOHN Transplant/IEC Planning [...] Medical Assistants Post-Discharge Follow-Up Living Situation/Distance from [place], [place] (45 min) Caregiver Self, Lab/Transfusion Frequency [...] is a risk of orbital injury and STOCK BROKER injury which could result in blindness or [...] this. Assessment & Plan (07/09/2022 7:42 PM NETWORK SUPPORT SPECIALIST): I talked with him quite a bit [...] weeks. Assessment & Plan (05/26/2022 4:16 PM NETWORK SUPPORT SPECIALIST): He does have pretty significant sinusitis and [...] day. Assessment & Plan (05/26/2022 4:17 PM NETWORK SUPPORT SPECIALIST): It is very possible that his cough could be due to sinusitis also. Hopefully that will continue to improve as we treat. He understands. Immunocompromised 11/13/2021 Multiple myeloma not having achieved remission 0 10/28/2021 Cancer Staging:Clinical stage from 10/16/2021:RISS Stage II(Bwpc-[id number]-[id number] (mg/L): 3.7, Albumin (g/dL): 4.2, ISS: Stage [...] and Dexamethasone in June 2021 Clinical trial [id number] initiated on 10/29/21; C46D1 08/03/24. BMT following [...] he got a TTE on 10/19 at [facility] however unclear why not currently in the system - May need to repeat TTE prior to treatment if results unavailable - Continue OI ppx with acyclovir 400mg BID - Begin trial [id number], a Bispecific Antibody Targeting BCMA treatment - [...] he got a TTE on 10/19 at [facility] however unclear why not currently in the system - May need to repeat TTE prior to treatment if results unavailable - Continue OI ppx with acyclovir 400mg BID - Begin trial [id number], a Bispecific Antibody Targeting BCMA treatment - [...] BID Assessment & Plan (05/31/2021 10:51 AM NETWORK SUPPORT SPECIALIST): Continue home pepcid, asx Renal mass 05/30/2021 Assessment & Plan (05/31/2021 10:51 AM NETWORK SUPPORT SPECIALIST): Admitted for observation after L renal mass [...] 07/17/2023 Assessment & Plan (05/31/2021 10:52 AM NETWORK SUPPORT SPECIALIST): Follows with oncology on daratumumab monotherapy -counts [...] blood in urine Follow up pathology from gtttczoes-ckl-tsqlskgu high-grade papillary urothelial carcinoma (grade 2) --follow [...] blood in urine Follow up pathology from luoabrcch-yxw-naxjbhmm high-grade papillary urothelial carcinoma (grade 2) --follow [...] supplementation Assessment & Plan (05/31/2021 10:51 AM NETWORK SUPPORT SPECIALIST): Stable on home losartan, nebivolol, triamterene-HCTZ Secondary [...] drink = 0.6 oz pur e alcohol) [facility] Utilities Answer Date Recorded In the past 12 months has th e electric, gas, oil, or water company [...] often do you attend chur ch or jainism services? More than 4 times per year 09/13/2024 Do you belong to any clubs o r organizations such as congregational groups, unions, fraternal or athletic groups, or [...] any time in the past 12 m [facility], were you homeless or living in a alf (including now)? No 09/13/2024 Personal Safety Answer Date Recorded Have you ever been in or are you currently in a harmful physical or emotional relationship or is someone making you feel afraid or unsafe? Denies 09/11/2024 Sex and Gender Information Value Date Recorded Sex Assigned at Not on file Legal Sex 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 NETWORK SUPPORT SPECIALIST Gender Identity Not on file Sexual Orientation Not on file Last Filed Vital Signs Vital Sign Reading Time Taken Comments Blood Pressure 150/81 09/15/2024 11:50 AM CDT Pulse 97 09/15/2024 11:50 AM CDT Temperature 36.5 C (97.7 F) 09/15/2024 11:50 AM CDT Respiratory Rate 18 09/15/2024 11:50 AM CDT Oxygen Saturation 100% 09/15/2024 11:50 AM CDT Inhaled Oxygen Concentration - - Weight 124.7 kg (275 lb) 09/11/2024 1:49 AM CDT Height 175.3 cm (5' 9.02 ) 08/23/2024 11:15 PM C DT Body Mass Index 40.59 08/23/2024 11:15 PM CDT Plan of Treatment Not on file Medical Devices Implanted Type Area Commodity Supervisor Device Identifier Shelf Expiration Date Model / Serial / Lot Other - See Comments Other - see comments Right: Chest Wall Description:Upon arrival to IR, not accessed Procedures Procedure Name Priority Date/Time Associated Diagnosis Comments ME INSJ NON-TUNNELED CENTRAL VENOUS CATH AGE 7 YR/> Routine 09/15/2024 1:20 PM CDT Bacteremia EGFR Routine 09/15/2024 3:52 AM CDT CBC WITHOUT DIFFERENTIAL Routine 09/15/2024 3:52 AM CDT BASIC METABOLIC PANEL Routine 09/15/2024 3:52 AM CDT EGFR Routine 09/14/2024 2:25 AM CDT CBC WITHOUT DIFFERENTIAL Routine 09/14/2024 2:25 AM CDT BASIC METABOLIC PANEL Routine 09/14/2024 2:25 AM CDT EGFR Routine 09/13/2024 3:21 AM CDT CBC WITHOUT DIFFERENTIAL Routine 09/13/2024 3:21 AM CDT BASIC METABOLIC PANEL Routine 09/13/2024 3:21 AM CDT TRANSTHORACIC ECHO (TTE) COMPLETE W DOPPLER/CF WO CONTRAST Routine 09/12/2024 2:39 PM CDT EGFR Routine 09/12/2024 3:14 AM CDT CBC WITHOUT DIFFERENTIAL Routine 09/12/2024 3:14 AM CDT BASIC METABOLIC PANEL Routine 09/12/2024 3:14 AM CDT EGFR Routine 09/11/2024 4:59 AM CDT CBC WITHOUT DIFFERENTIAL Routine 09/11/2024 4:59 AM CDT BASIC METABOLIC PANEL Routine 09/11/2024 4:59 AM CDT BLOOD CULTURE Routine 09/11/2024 4:59 AM CDT BLOOD CULTURE STAT 09/11/2024 4:59 AM CDT URINALYSIS, MICROSCOPIC ONLY Routine 09/11/2024 4:07 AM CDT URINE CULTURE Routine 09/11/2024 4:07 AM CDT URINALYSIS AND REFLEX TO MICROSCOPIC AND CULTURE Routine 09/11/2024 4:07 AM CDT VANCOMYCIN LEVEL RANDOM STAT 09/11/2024 2:32 AM CDT EGFR STAT 09/11/2024 2:32 AM CDT DIFFERENTIAL AUTO STAT 09/11/2024 2:3 2 AM CDT APTT STAT 09/11/2024 2:32 AM CDT PROTIME-INR STAT 09/11/2024 2:32 AM CDT CBC WITH AUTO DIFFERENTIAL STAT 09/11/2024 2:32 AM CDT COMPREHENSIVE METABOLIC PANEL STAT 09/11/2024 2:32 AM CDT DIFFERENTIAL AUTO STAT 08/31/2024 8:1 2 AM [...] Read Routine (OP Routine) 08/06/2024 2:42 PM NETWORK SUPPORT SPECIALIST Multiple myeloma, remission status unspecified (HCC) URINALYSIS, MICROSCOPIC ONLY Routine 08/06/2024 9:19 AM NETWORK SUPPORT SPECIALIST JOHN (acute kidney injury) PROTEIN / CREATININE RATIO, URINE, RANDOM Routine 08/06/2024 9:19 AM NETWORK SUPPORT SPECIALIST JOHN (acute kidney injury) URINALYSIS AND REFLEX TO MICROSCOPIC Routine 08/06/2024 9:19 AM NETWORK SUPPORT SPECIALIST JOHN (acute kidney injury) EGFR Routine 08/06/2024 7:43 AM NETWORK SUPPORT SPECIALIST Multiple myeloma, remission status unspecified (HCC) DIFFERENTIAL AUTO Routine 08/06/2024 7:4 3 AM NETWORK SUPPORT SPECIALIST Multiple myeloma, remission status unspecified (HCC) LACTATE DEHYDROGENASE Routine 08/06/2024 7:43 AM NETWORK SUPPORT SPECIALIST Multiple myeloma, remission status unspecified (HCC) CBC WITH AUTO DIFFERENTIAL Routine 08/06/2024 7:43 AM NETWORK SUPPORT SPECIALIST Multiple myeloma, remission status unspecified (HCC) COMPREHENSIVE METABOLIC PANEL Routine 08/06/2024 7:43 AM NETWORK SUPPORT SPECIALIST Multiple myeloma, remission status unspecified (HCC) LIPID PANEL Routine 08/06/2024 7:43 AM NETWORK SUPPORT SPECIALIST Multiple myeloma, remission status unspecified (HCC) PSA DIAGNOSTIC Routine 08/06/2024 7:43 AM NETWORK SUPPORT SPECIALIST Multiple myeloma, remission status unspecified (HCC) PROTIME-INR STAT 08/03/2024 9:21 AM NETWORK SUPPORT SPECIALIST Multiple myeloma in relapse (HCC) APTT STAT 08/03/2024 9:21 AM NETWORK SUPPORT SPECIALIST Multiple myeloma in relapse (HCC) MAGNESIUM STAT 08/03/2024 7:40 AM NETWORK SUPPORT SPECIALIST Multiple myeloma in relapse (HCC) GAMMA GT STAT 08/03/2024 7:40 AM NETWORK SUPPORT SPECIALIST Multiple myeloma in relapse (HCC) EGFR Routine 08/03/2024 7:40 AM NETWORK SUPPORT SPECIALIST Multiple myeloma, remission status unspecified (HCC) DIFFERENTIAL AUTO Routine 08/03/2024 7:4 0 AM NETWORK SUPPORT SPECIALIST Multiple myeloma, remission status unspecified (HCC) CBC WITH AUTO DIFFERENTIAL Routine 08/03/2024 7:40 AM NETWORK SUPPORT SPECIALIST Multiple myeloma, remission status unspecified (HCC) COMPREHENSIVE METABOLIC PANEL Routine 08/03/2024 7:40 AM NETWORK SUPPORT SPECIALIST Multiple myeloma, remission status unspecified (HCC) IGA Routine 08/03/2024 7:40 AM NETWORK SUPPORT SPECIALIST Multiple myeloma, remission status unspecified (HCC) IGG Routine 08/03/2024 7:40 AM NETWORK SUPPORT SPECIALIST Multiple myeloma, remission status unspecified (HCC) IGM Routine 08/03/2024 7:40 AM NETWORK SUPPORT SPECIALIST Multiple myeloma, remission status unspecified (HCC) IMMUNOGLOBULIN FREE LIGHT CHAINS Routine 08/03/2024 7:40 AM NETWORK SUPPORT SPECIALIST Multiple myeloma, remission status unspecified (HCC) LACTATE DEHYDROGENASE Routine 08/03/2024 7:40 AM NETWORK SUPPORT SPECIALIST Multiple myeloma, remission status unspecified (HCC) PROTEIN ELECTROPHORESIS, WITH REFLEX, SERUM Routine 08/03/2024 7:40 AM NETWORK SUPPORT SPECIALIST Multiple myeloma, remission status unspecified (HCC) IMMUNOTYPING Routine 08/03/2024 7:40 AM NETWORK SUPPORT SPECIALIST Multiple myeloma, remission status unspecified (HCC) HEMOGLOBIN A1C Routine 08/03/2024 7:40 AM NETWORK SUPPORT SPECIALIST Multiple myeloma, remission status unspecified (HCC) URINALYSIS, MICROSCOPIC ONLY Routine 08/03/2024 7:30 AM NETWORK SUPPORT SPECIALIST Multiple myeloma, remission status unspecified (HCC) URINE CULTURE Routine 08/03/2024 7:30 AM NETWORK SUPPORT SPECIALIST URINALYSIS AND REFLEX TO MICROSCOPIC AND CULTURE Routine 08/03/2024 7:30 AM NETWORK SUPPORT SPECIALIST Multiple myeloma, remission status unspecified (HCC) EGFR STAT 07/13/2024 7:40 AM NETWORK SUPPORT SPECIALIST Multiple myeloma in relapse (HCC) DIFFERENTIAL AUTO STAT 07/13/2024 7:4 0 AM NETWORK SUPPORT SPECIALIST Multiple myeloma in relapse (HCC) IGA Routine 07/13/2024 7:40 AM NETWORK SUPPORT SPECIALIST Multiple myeloma, remission status unspecified (HCC) IGG Routine 07/13/2024 7:40 AM NETWORK SUPPORT SPECIALIST Multiple myeloma, remission status unspecified (HCC) IGM Routine 07/13/2024 7:40 AM NETWORK SUPPORT SPECIALIST Multiple myeloma, remission status unspecified (HCC) IMMUNOGLOBULIN FREE LIGHT CHAINS Routine 07/13/2024 7:40 AM NETWORK SUPPORT SPECIALIST Multiple myeloma, remission status unspecified (HCC) PROTEIN ELECTROPHORESIS, WITH REFLEX, SERUM Routine 07/13/2024 7:40 AM NETWORK SUPPORT SPECIALIST Multiple myeloma, remission status unspecified (HCC) IMMUNOTYPING Routine 07/13/2024 7:40 AM NETWORK SUPPORT SPECIALIST Multiple myeloma, remission status unspecified (HCC) LACTATE DEHYDROGENASE Routine 07/13/2024 7:40 AM NETWORK SUPPORT SPECIALIST Multiple myeloma in relapse (HCC) GAMMA GT STAT 07/13/2024 7:40 AM NETWORK SUPPORT SPECIALIST Multiple myeloma in relapse (HCC) MAGNESIUM STAT 07/13/2024 7:40 AM NETWORK SUPPORT SPECIALIST Multiple myeloma in relapse (HCC) COMPREHENSIVE METABOLIC PANEL STAT 07/13/2024 7:40 AM NETWORK SUPPORT SPECIALIST Multiple myeloma in relapse (HCC) CBC WITH AUTO DIFFERENTIAL STAT 07/13/2024 7:40 AM NETWORK SUPPORT SPECIALIST Multiple myeloma in relapse (HCC) APTT STAT 07/13/2024 7:24 AM NETWORK SUPPORT SPECIALIST Multiple myeloma in relapse (HCC) PROTIME-INR STAT 07/13/2024 7:24 AM NETWORK SUPPORT SPECIALIST Multiple myeloma in relapse (HCC) IMMUNOTYPING Routine 06/22/2024 7:20 AM NETWORK SUPPORT SPECIALIST Multiple myeloma, remission status unspecified (HCC) EGFR Routine 06/22/2024 7:20 AM NETWORK SUPPORT SPECIALIST Multiple myeloma, remission status unspecified (HCC) DIFFERENTIAL AUTO Routine 06/22/2024 7:2 0 AM NETWORK SUPPORT SPECIALIST Multiple myeloma, remission status unspecified (HCC) CBC WITH AUTO DIFFERENTIAL Routine 06/22/2024 7:20 AM NETWORK SUPPORT SPECIALIST Multiple myeloma, remission status unspecified (HCC) COMPREHENSIVE METABOLIC PANEL Routine 06/22/2024 7:20 AM NETWORK SUPPORT SPECIALIST Multiple myeloma, remission status unspecified (HCC) IGA Routine 06/22/2024 7:20 AM NETWORK SUPPORT SPECIALIST Multiple myeloma, remission status unspecified (HCC) IGG Routine 06/22/2024 7:20 AM NETWORK SUPPORT SPECIALIST Multiple myeloma, remission status unspecified (HCC) IGM Routine 06/22/2024 7:20 AM NETWORK SUPPORT SPECIALIST Multiple myeloma, remission status unspecified (HCC) IMMUNOGLOBULIN FREE LIGHT CHAINS Routine 06/22/2024 7:20 AM NETWORK SUPPORT SPECIALIST Multiple myeloma, remission status unspecified (HCC) LACTATE DEHYDROGENASE Routine 06/22/2024 7:20 AM NETWORK SUPPORT SPECIALIST Multiple myeloma, remission status unspecified (HCC) PROTEIN ELECTROPHORESIS, WITH REFLEX, SERUM Routine 06/22/2024 7:20 AM NETWORK SUPPORT SPECIALIST Multiple myeloma, remission status unspecified (HCC) MAGNESIUM STAT 06/22/2024 7:20 AM NETWORK SUPPORT SPECIALIST Multiple myeloma in relapse (HCC) GAMMA GT STAT 06/22/2024 7:20 AM NETWORK SUPPORT SPECIALIST Multiple myeloma in relapse (HCC) PROTIME-INR STAT 06/22/2024 7:20 AM NETWORK SUPPORT SPECIALIST Multiple myeloma in relapse (HCC) APTT STAT 06/22/2024 7:20 AM NETWORK SUPPORT SPECIALIST Multiple myeloma in relapse (HCC) HEPATITIS C ANTIBODY STAT 10/16/2021 9:50 AM CDT Multiple myeloma in relapse (HCC) from Last 3 Months or Most Recently Relevant to Health Maintenance Results * ME INSJ NON-TUNNELED CENTRAL VENOUS CATH AGE 7 YR/> (09/15/2024 1:20 PM CDT) Narrative Lianna Denny PA - 09/15/2024 1:20 PM CDT Lianna Denny PA 09/15/2024 1:40 PM Midline Insertion Date/Time: 09/15/2024 1:20 PM Performed by: Lianna Denny PA Authorized by: Lianna Denny PA [place] Protocol: RN Notified of Procedure: yes Informed consent: Risks, benefits, alternatives discussed and patient/development representative/guardian agrees and accepts Patient's stated name/ matches armband: Yes Allergies confirmed: yes Consent form signed, dated, timed; matches correct patient, intended procedure and site: Yes Imaging: Pertinent imaging reviewed, correctly oriented and match to patient identifiers Supplies, devices and special equipment are available: yes Site/side marked: yes Immediately prior to the procedure a time out was called: a verbal verification by the procedure participants confirmed correct patient identity, correct site/side marked and visible (if applicable); agreement on procedure to be done; and correct patient positioning Indications: Vascular access (dx: enterococcus faecalis bacteremia) Anesthesia (see MAR for exact dosage) Anesthesia method: Local infiltration Local anesthetic: Lidocaine 1% Patient position: Flat Skin preparation: Skin prepped with 2% chlorhexidine Provider preparation: Cap, partial body drape, mask, handwashing, gown and gloves Location: LUE basilic vein. Ultrasound guidance: Sterile probe cover used, pre-procedure diagnostic and real-time needle guidance Assessment: Blood return through all ports and free fluid flow Catheter type: Single lumen Catheter placed through introducer: Transvenous (yes) Catheter size: 3 Fr Needle inserted, vein idenitified then guidewire inserted easily into vein: Yes Number of attempts: 1 Successful placement: Yes Catheter secured at (cm): 0 Catheter length (cm): 20 Line securement: Securement device and dressing applied Patient tolerance: Patient tolerated the procedure well with no immediate complications Post Procedure Debrief: All guidewires, needles, sponges or other items are accounted for: yes us Lianna NEUMANN IN CLINIC/BEDSIDE OR DERABLES Final Result * (ABNORMAL) eGFR (09/15/2024 3:52 AM CDT) eGFR 52(L) >=60 mL/min/1. 73 m2 Comment: Interpretive Data [...] interpretive data was last reviewed 2021. Blood 09/15/2024 3:52 AM CDT 09/15/2024 4:02 AM CDT us Emory Santana MD LAB BLOOD ORDERABLES Final Result [facility] [address] Department [place] [address] * (ABNORMAL) CBC without differential (09/15/2024 3:52 AM CDT) Pathologist [facility] WBC 6.46 3.80 - 9.90 K/cumm Hgb 10.1(L) 13.0 - 17.5 g/dL [facility] Hct 31.4(L) 38.9 - 50.3 % [facility] Plt 149(L) 150 - 400 K/cumm [facility] MPV 9.2 9.1 - 12.3 fL [facility] RBC 3.20(L) 4.30 - 5.80 M/cumm [facility] MCV 98.1(H) 81.3 - 96.4 fL [facility] MCH 31.6 27.1 - 33.3 pg [facility] MCHC 32.2(L) 32.3 - 35.7 g/dL [facility] RDW CV 14.9 11.1 - 14.9 % [facility] RDW SD 54.3(H) 35.7 - 48.1 fL [facility] NRBC abs 0.00 0.00 - 0.01 K/cumm [facility] Blood 09/15/2024 3:52 AM CDT 09/15/2024 4:02 AM CDT us Emory Santana MD LAB BLOOD ORDERABLES Final Result [facility] [address] Department [place] [address] * (ABNORMAL) Basic metabolic panel (09/15/2024 3:52 AM CDT) Sodium 143 135 - 145 mmol/L Potassium, pl 3.2(L) 3.3 - 4.9 mmol/L [facility] Chloride 105 97 - 110 mmol/L [facility] CO2 28 22 - 32 mmol/L [facility] Anion gap 10 2 - 15 mmol/L [facility] BUN 12 6 - 25 mg/dL [facility] Creatinine 1.45(H) 0.80 - 1.30 mg/dL [facility] Glucose 110 70 - 199 mg/dL [facility] Comment: Interpretive Data Fasting glucose >/= [...] interpretive data was last revised 2022. Calcium 8.2(L) 8.5 - 10.3 mg/dL [facility] Blood 09/15/2024 3:52 AM CDT 09/15/2024 4:02 AM CDT us Emory Santana MD LAB BLOOD ORDERABLES Final Result Performing Organization Address City/[facility]/ZIP Co de Phone Number [facility] [address] Department [employer] [place] [address] * (ABNORMAL) eGFR (09/14/2024 2:25 AM CDT) eGFR 48(L) >=60 mL/min/1. 73 m2 Comment: Interpretive Data [...] interpretive data was last reviewed 2021. Blood 09/14/2024 2:25 AM CDT 09/14/2024 2:44 AM CDT us Emory Santana MD LAB BLOOD ORDERABLES Final Result [facility] [address] Department of [employer] [place] [address] * (ABNORMAL) CBC without differential (09/14/2024 2:25 AM CDT) WBC 5.62 3.80 - 9.90 K/cumm Hgb 10.0(L) 13.0 - 17.5 g/dL [facility] Hct 31.1(L) 38.9 - 50.3 % [facility] Plt 163 150 - 400 K/cumm [facility] MPV 9.3 9.1 - 12.3 fL [facility] RBC 3.15(L) 4.30 - 5.80 M/cumm [facility] MCV 98.7(H) 81.3 - 96.4 fL [facility] MCH 31.7 27.1 - 33.3 pg [facility] MCHC 32.2(L) 32.3 - 35.7 g/dL [facility] RDW CV 15.4(H) 11.1 - 14.9 % [facility] RDW SD 55.6(H) 35.7 - 48.1 fL [facility] NRBC abs 0.00 0.00 - 0.01 K/cumm [facility] Blood 09/14/2024 2:25 AM CDT 09/14/2024 2:44 AM CDT us Emory Santana MD LAB BLOOD ORDERABLES Final Result [facility] [address] Department [place] [address] * (ABNORMAL) Basic metabolic panel (09/14/2024 2:25 AM CDT) [facility] Sodium 146(H) 135 - 145 mmol/L Potassium, pl 3.3 3.3 - 4.9 mmol/L [facility] Chloride 108 97 - 110 mmol/L [facility] CO2 27 22 - 32 mmol/L [facility] Anion gap 11 2 - 15 mmol/L [facility] BUN 18 6 - 25 mg/dL [facility] Creatinine 1.53(H) 0.80 - 1.30 mg/dL [facility] Glucose 116 70 - 199 mg/dL [facility] Comment: Interpretive Data Fasting glucose >/= [...] interpretive data was last revised 2022. Calcium 8.1(L) 8.5 - 10.3 mg/dL [facility] Blood 09/14/2024 2:25 AM CDT 09/14/2024 2:44 AM CDT us Emoyr Santana MD LAB BLOOD ORDERABLES Final Result [facility] [address] Department [place] [address] * (ABNORMAL) eGFR (09/13/2024 3:21 AM CDT) eGFR 48(L) >=60 mL/min/1. 73 m2 Comment: Interpretive Data [...] interpretive data was last reviewed 2021. Blood 09/13/2024 3:21 AM CDT 09/13/2024 3:48 AM CDT Emory Santana MD LAB BLOOD ORDERABLES Final Result Performing Organization Address [facility]/ZIP Co de Phone Number [facility] [address] [employer] [place] [address] * (ABNORMAL) CBC without differential (09/13/2024 3:21 AM CDT) [facility] WBC 5.46 3.80 - 9.90 K/cumm Hgb 10.1(L) 13.0 - 17.5 g/dL [facility] Hct 30.8(L) 38.9 - 50.3 % [facility] Plt 160 150 - 400 K/cumm [facility] MPV 9.7 9.1 - 12.3 fL [facility] RBC 3.15(L) 4.30 - 5.80 M/cumm [facility] MCV 97.8(H) 81.3 - 96.4 fL [facility] MCH 32.1 27.1 - 33.3 pg [facility] MCHC 32.8 32.3 - 35.7 g/dL [facility] RDW CV 15.7(H) 11.1 - 14.9 % [facility] RDW SD 56.4(H) 35.7 - 48.1 fL [facility] NRBC abs 0.00 0.00 - 0.01 K/cumm [facility] Blood 09/13/2024 3:21 AM CDT 09/13/2024 3:48 AM CDT us Emory Santana MD LAB BLOOD ORDERABLES Final Result Performing Organization Address City/[facility]/ZIP Co de Phone Number [facility] [address] Department [employer] [place], [place] [id number] * (ABNORMAL) Basic metabolic panel (09/13/2024 3:21 AM CDT) [facility] Sodium 141 135 - 145 mmol/L Potassium, pl 3.3 3.3 - 4.9 mmol/L [facility] Chloride 105 97 - 110 mmol/L [facility] CO2 24 22 - 32 mmol/L [facility] Anion gap 12 2 - 15 mmol/L [facility] BUN 24 6 - 25 mg/dL [facility] Creatinine 1.55(H) 0.80 - 1.30 mg/dL [facility] Glucose 115 70 - 199 mg/dL [facility] Comment: Interpretive Data Fasting glucose >/= [...] interpretive data was last revised 2022. Calcium 8.1(L) 8.5 - 10.3 mg/dL [facility] Blood 09/13/2024 3:21 AM CDT 09/13/2024 3:48 AM CDT us Emory Santana MD LAB BLOOD ORDERABLES Final Result [facility] [address] Department [place] [address] * TRANSTHORACIC ECHO (TTE) COMPLETE W DOPPLER/CF WO CONTRAST (09/12/2024 2:39 PM CDT) LV EF 55-60 % CONS SCIMAGE Anatomical Region Laterality Modality Ultrasound 09/12/2024 12:1 1 PM CDT Narrative 09/12/2024 2:42 PM CDT [facility] [address] [address] ECHOCARDIOGRAM Patient Name: BUFFY VALLE B : 1950 (73y 9m) Gender: M Study Date: 09/12/2024 12:11:05 PM Ht(Inch): 69 Wt(Lb): 275.57 BSA: 2.47 Stonemason Supervisor: JIM Location: [id number] Order Provider: ANUP SIN BMI: 40.69 BP: 128/72 Ref Provider: ANUP SIN - PROCEDURES: Echocardiographic Report: Transthoracic Echocardiogram with complete 2D, M-Mode, Spectral and Color Flow Doppler examination. INDICATIONS: Dyspnea. MEASUREMENTS: 2D/MM Value Range Doppler Value Range IVSd 2D 0.99 cm [ 0.60 - 1.00 ] AV Peak Ermias 1.40 m/s [ 1.00 - 1.70 ] LVIDd 2D 5.61 cm [ 4.20 - 5.80 ] AV Peak PG 7.8 mmHg LVIDs 2D 4.17 cm [ 2.50 - 4.00 ] AV Mean PG 4.3 mmHg LVPWd 2D 1.07 cm [ 0.60 - 1.00 ] AV VTI 30.0 cm Estimated EF 55-60 % LUZ VTI 3.8 cm2 LA Dimension 2D 3.93 cm [ 3.00 - 4.00 ] LVOT Peak Ermias 1.18 m/s [ 0.70 - 1.10 ] AoR Diam 2D 3.54 cm [ 3.10 - 3.70 ] LVOT Diam 2.4 cm AoR Diam 2D Index 1.43 LVOT Peak PG 5.5 mmHg TAPSE 2.20 cm [ 1.71 - 5.00 ] LVOT VTI 26.1 cm MV Peak PG 4.1 mmHg MV Mean PG 1.1 mmHg MV E Peak Ermias 0.6 m/s [ 0.6 - 1.3 ] MV A Peak Ermias 0.9 m/s [ 1.0 - 1.2 ] MV PHT 69.3 ms [ 20.0 - 100.0 ] MV Decel Time 197.1 ms [ 104.0 - 258.0 ] MVA PHT 3.2 ms MV E/A Ratio 0.7 PV Peak Ermias 0.8 m/s [ 0.4 - 0.8 ] PV Peak PG 2.3 mmHg Lat E` Ermias 0.12 m/s [ 0.10 - 0.15 ] Sept E' Ermias 0.05 m/s [ 0.08 - 0.15 ] E/E` 5.00 RV S' 0.14 m/s 2D/MM Value Range Doppler Value Range - FINDINGS: BP: Blood pressure: 100/80 mmHg. Left Ventricle: Normal global and regional left ventricular systolic function. Ejection Fraction is estimated at 55-60 %. Diastolic indices overall most consistent with Grade I diastolic dysfunction (impaired myocardial relaxation without elevated filling pressures). Normal left ventricular cavity size. LV wall thickness is within normal limits. Right Ventricle: Normal right ventricular systolic function. Normal right ventricular size. Left Atrium: The left atrium is normal in size. Right Atrium: The right atrium is normal in size. Atrial Septum: Normal appearing atrial septum. Mitral Valve: Normal mitral valve appearance and function. Aortic Valve: Normal aortic valve appearance and function. Tricuspid Valve: Normal tricuspid valve appearance and function. Pulmonic Valve: Normal appearance and function of the pulmonic valve. Pericardium: Normal appearing pericardial thickness. No significant pericardial effusion. Aortic Root and Aorta: The sinuses of Valsalva are normal. Normal caliber aortic root. Normal sized ascending aorta. Normal sized descending aorta. Aortic Arch: Normal caliber aortic arch. IVC: Normal appearance of the inferior vena cava. CONCLUSIONS: 1. Normal global and regional left ventricular systolic function. Ejection Fraction is estimated at 55-60 %. Diastolic indices overall most consistent with Grade I diastolic dysfunction (impaired myocardial relaxation without elevated filling pressures). Normal left ventricular cavity size. LV wall thickness is within normal limits. 2. Normal right ventricular systolic function. Normal right ventricular size. 3. Normal appearance of the inferior vena cava. Electronically Signed By: Choco Thomas MD 09/12/2024 2:41:52 PM CDT Procedure Note Choco Thomas MD - 09/12/2024 [facility] [address] [place] [address] ECHOCARDIOGRAM Patient Name: BUFFY VALLE B : 1950 (73y 9m) Gender: M Study Date: 09/12/2024 12:11:05 PM Ht(Inch): 69 Wt(Lb): 275.57 BSA: 2.47 Stonemason Supervisor: JIM Location: [address] Order Provider: ANUP SIN BMI: 40.69 BP: 128/72 Ref Provider: ANUP SIN - PROCEDURES: Echocardiographic Report: Transthoracic Echocardiogram with complete 2D,M-Mode, Spectral and Color Flow Doppler examination. INDICATIONS: Dyspnea. MEASUREMENTS: 2D/MM Value Range Doppler ValueRange IVSd 2D 0.99 cm [ 0.60 - 1.00 ] AV Peak Ermias 1.40m/s [ 1.00 - 1.70 ] LVIDd 2D 5.61 cm [ 4.20 - 5.80 ] AV Peak PG 7.8mmHg LVIDs 2D 4.17 cm [ 2.50 - 4.00 ] AV Mean PG 4.3mmHg LVPWd 2D 1.07 cm [ 0.60 - 1.00 ] AV VTI 30.0cm Estimated EF 55-60 % LUZ VTI 3.8cm2 LA Dimension 2D 3.93 cm [ 3.00 - 4.00 ] LVOT Peak Ermias 1.18m/s [ 0.70 - 1.10 ] AoR Diam 2D 3.54 cm [ 3.10 - 3.70 ] LVOT Diam 2.4cm AoR Diam 2D Index 1.43 LVOT Peak PG 5.5mmHg TAPSE 2.20 cm [ 1.71 - 5.00 ] LVOT VTI 26.1cm MV Peak PG 4.1 mmHg MV Mean PG 1.1 mmHg MV E Peak Ermias 0.6 m/s [ 0.6 - 1.3 ] MV A Peak Ermias 0.9 m/s [ 1.0 - 1.2 ] MV PHT 69.3 ms [ 20.0 - 100.0 ] MV Decel Time 197.1 ms [ 104.0 - 258.0 ] MVA PHT 3.2 ms MV E/A Ratio 0.7 PV Peak Ermias 0.8 m/s [ 0.4 - 0.8 ] PV Peak PG 2.3 mmHg Lat E` Ermias 0.12 m/s [ 0.10 - 0.15 ] Sept E' Ermias 0.05 m/s [ 0.08 - 0.15 ] E/E` 5.00 RV S' 0.14 m/s 2D/MM Value Range Doppler ValueRange - FINDINGS: BP: Blood pressure: 100/80 mmHg. Left Ventricle: Normal global and regional left ventricular systolicfunction. Ejection Fraction is estimated at 55-60 %. Diastolic indices overall mostconsistent with Grade I diastolic dysfunction (impaired myocardial relaxation without elevatedfilling pressures). Normal left ventricular cavity size. LV wall thickness iswithin normal limits. Right Ventricle: Normal right ventricular systolic function. Normal rightventricular size. Left Atrium: The left atrium is normal in size. Right Atrium: The right atrium is normal in size. Atrial Septum: Normal appearing atrial septum. Mitral Valve: Normal mitral valve appearance and function. Aortic Valve: Normal aortic valve appearance and function. Tricuspid Valve: Normal tricuspid valve appearance and function. Pulmonic Valve: Normal appearance and function of the pulmonic valve. Pericardium: Normal appearing pericardial thickness. No significantpericardial effusion. Aortic Root and Aorta: The sinuses of Valsalva are normal. Normal caliberaortic root. Normal sized ascending aorta. Normal sized descending aorta. Aortic Arch: Normal caliber aortic arch. IVC: Normal appearance of the inferior vena cava. CONCLUSIONS: 1. Normal global and regional left ventricular systolic function. EjectionFraction is estimated at 55-60 %. Diastolic indices overall most consistent with GradeI diastolic dysfunction (impaired myocardial relaxation without elevated fillingpressures). Normal left ventricular cavity size. LV wall thickness is within normal limits. 2. Normal right ventricular systolic function. Normal right ventricularsize. 3. Normal appearance of the inferior vena cava. Electronically Signed By: Choco Thomas MD 09/12/2024 2:41:52 PM CDT us Anup Sin MD CV ECHO PROCEDURES Fi nal Result * (ABNORMAL) eGFR (09/12/2024 3:14 AM CDT) eGFR 36(L) >=60 mL/min/1. 73 m2 Comment: Interpretive Data [...] interpretive data was last reviewed 2021. Blood 09/12/2024 3:14 AM CDT 09/12/2024 3:34 AM CDT us Emory Santana MD LAB BLOOD ORDERABLES Final Result [facility] [address] Department of Laboratories [place], [place] [id number] * (ABNORMAL) CBC without differential (09/12/2024 3:14 AM CDT) Pathologist [facility] WBC 7.12 3.80 - 9.90 K/cumm Hgb 10.3(L) 13.0 - 17.5 g/dL [facility] Hct 31.8(L) 38.9 - 50.3 % [facility] Plt 150 150 - 400 K/cumm [facility] MPV 9.5 9.1 - 12.3 fL [facility] RBC 3.23(L) 4.30 - 5.80 M/cumm [facility] MCV 98.5(H) 81.3 - 96.4 fL [facility] MCH 31.9 27.1 - 33.3 pg [facility] MCHC 32.4 32.3 - 35.7 g/dL [facility] RDW CV 15.9(H) 11.1 - 14.9 % [facility] RDW SD 57.1(H) 35.7 - 48.1 fL [facility] NRBC abs 0.00 0.00 - 0.01 K/cumm [facility] Blood 09/12/2024 3:14 AM CDT 09/12/2024 3:35 AM CDT us Emory Santana MD LAB BLOOD ORDERABLES Final Result [facility] [address] Department [place] [address] * (ABNORMAL) Basic metabolic panel (09/12/2024 3:14 AM CDT) Sodium 139 135 - 145 mmol/L Potassium, pl 3.3 3.3 - 4.9 mmol/L [facility] Chloride 101 97 - 110 mmol/L [facility] CO2 23 22 - 32 mmol/L [facility] Anion gap 15 2 - 15 mmol/L [facility] BUN 31(H) 6 - 25 mg/dL [facility] Creatinine 1.96(H) 0.80 - 1.30 mg/dL [facility] Glucose 114 70 - 199 mg/dL [facility] Comment: Interpretive Data Fasting glucose >/= [...] 2022. Calcium 8.4(L) 8.5 - 10.3 mg/dL [facility] Blood 09/12/2024 3:14 AM CDT 09/12/2024 3:34 AM CDT us Emory Santana MD LAB BLOOD ORDERABLES Final Result [facility] [address] [place] [address] * (ABNORMAL) eGFR (09/11/2024 4:59 AM CDT) eGFR 27(L) >=60 mL/min/1. 73 m2 Comment: Interpretive Data [...] interpretive data was last reviewed 2021. Blood 09/11/2024 4:59 AM CDT 09/11/2024 5:07 AM CDT us Emory Santana MD LAB BLOOD ORDERABLES Final Result Performing Organization Address City/[facility]/ZIP Co de Phone Number [facility] [address] Department [employer] [place], [place] [phone] * Blood culture Blood (09/11/2024 4:59 AM CDT) Report Final Report: No growth Blood 09/11/2024 4:59 AM CDT 09/11/2024 5:09 AM CDT Narrative [facility] - 09/16/2024 7:01 AM CDT From a different site than #1. Collection->Peripheral Interpretive Data 1. Blood cultures are incubated and monitored continuously for 5 days (120 hours). The first negative report is issued within 24 hours of receipt in the laboratory. 2. All positive cultures are resulted and called to physicians/care providers as soon as they are detected. 3. A rapid molecular test for organism identification may be performed using the [employer] Blood Culture Identification panel. This assay detects microbial DNA in a blood culture broth. This assay has been cleared by the [place] Food and Drug Administration and its performance characteristics have been verified by the [facility]. Interpretive data was last revised on July 11, 2022. us Emory Santana MD LAB MICROBIOLOGY - GENERAL ORDERABLES Final Result [facility] [address] Department [place] [address] * Blood culture Blood (09/11/2024 4:59 AM CDT) Report Final Report: No growth Blood 09/11/2024 4:59 AM CDT 09/11/2024 5:09 AM CDT Narrative [facility] - 09/16/2024 7:01 AM CDT Collection->Peripheral Interpretive Data 1. Blood cultures are incubated and monitored continuously for 5 days (120 hours). The first negative report is issued within 24 hours of receipt in the laboratory. 2. All positive cultures are resulted and called to physicians/care providers as soon as they are detected. 3. A rapid molecular test for organism identification may be performed using the [employer] Blood Culture Identification panel. This assay detects microbial DNA in a blood culture broth. This assay has been cleared by the [place] Food and Drug Administration and its performance characteristics have been verified by the [facility]. Interpretive data was last revised on July 11, 2022. us Emory Santana MD LAB MICROBIOLOGY - GENERAL ORDERABLES Final Result Performing Organization Address [facility] Co de Phone Number [facility] [address] Department [employer] [place] [address] * (ABNORMAL) CBC without differential (09/11/2024 4:59 AM CDT) [facility] WBC 11.33(H) 3.80 - 9.90 K/cumm Hgb 10.8(L) 13.0 - 17.5 g/dL [facility] Hct 33.2(L) 38.9 - 50.3 % [facility] Plt 138(L) 150 - 400 K/cumm [facility] MPV 9.5 9.1 - 12.3 fL [facility] RBC 3.37(L) 4.30 - 5.80 M/cumm [facility] MCV 98.5(H) 81.3 - 96.4 fL [facility] MCH 32.0 27.1 - 33.3 pg [facility] MCHC 32.5 32.3 - 35.7 g/dL [facility] RDW CV 15.9(H) 11.1 - 14.9 % [facility] RDW SD 57.7(H) 35.7 - 48.1 fL [facility] NRBC abs 0.00 0.00 - 0.01 K/cumm [facility] Blood 09/11/2024 4:59 AM CDT 09/11/2024 5:08 AM CDT us Emory Santana MD LAB BLOOD ORDERABLES Final Result Performing Organization Address [facility]/ZIP Co de Phone Number [facility] [address] Department [employer] [place] [address] * (ABNORMAL) Basic metabolic panel (09/11/2024 4:59 AM CDT) Sodium 139 135 - 145 mmol/L Potassium, pl 3.7 3.3 - 4.9 mmol/L [facility] Chloride 102 97 - 110 mmol/L [facility] CO2 23 22 - 32 mmol/L [facility] Anion gap 14 2 - 15 mmol/L [facility] BUN 39(H) 6 - 25 mg/dL [facility] Creatinine 2.45(H) 0.80 - 1.30 mg/dL [facility] Glucose 131 70 - 199 mg/dL [facility] Comment: Interpretive Data Fasting glucose >/= [...] interpretive data was last revised 2022. Calcium 8.8 8.5 - 10.3 mg/dL [facility] Blood 09/11/2024 4:59 AM CDT 09/11/2024 5:07 AM CDT us Emory Santana MD LAB BLOOD ORDERABLES Final Result [facility] [address] Department [place] [address] * (ABNORMAL) Urinalysis reflex to microscopic and culture Urine, indwelling catheter (09/11/2024 4:07AM CDT) Pathologist [facility] Color, ur Yellow Yellow Clarity, ur Clear Clear [facility] Specific gravity, ur 1.013 1.003 - 1.030 [facility] pH, urine 5.5 [facility] Comment: Interpretive Data U rine pH is affected by diet, medications, systemic acid-base disturbances, and renal tubular function. pH may affect urinary stone formation. For example, urine pH below 6.0 may help reduce the tendency for calcium phosphate stones and pH greater than 6.0 may reduce the tendency for uric acid stone formation. Source: [facility] Current Interpretive Data was last revised on 2017 Protein, ur ql Trace Negative [facility] Glucose, ur ql Negative Negative [facility] Ketones, ur Negative Negative [facility] Bilirubin, ur Negative Negative [facility] Blood, ur 1+(A) Negative [facility] Urobilinogen, ur <2.0 <2.0 mg/dL [facility] Nitrite, ur Negative Negative [facility] Leukocyte esterase, ur 2+(A) Negative [facility] UA reflex comment Reflex to microscopic UA will be performed. [facility] Urine, indwelling catheter 09/11/2024 4:07 AM CDT 09/11/2024 4:07 AM CDT Emory Santana MD LAB MICROBIOLOGY - GENERAL ORDERABLES Final Result Performing Organization Address [facility] Co de Phone Number [facility] [address] Department of [employer] [place], [place] [phone] * (ABNORMAL) Urinalysis, microscopic only (09/11/2024 4:07 AM CDT) WBC, ur 11-20(A) 0 - 5 /HPF RBC, ur 3-5(A) 0 - 2 /HPF [facility] Culture Reflex Comment Reflex to urine culture will be performed. [facility] Urine, indwelling catheter 09/11/2024 4:07 AM CDT 09/11/2024 4:14 AM CDT us Emory Santana MD LAB URINE ORDERABLES Final Result Performing Organization Address [facility] Co de Phone Number [facility] [address] Department of [employer] [place], [place] [phone] * (ABNORMAL) Urine culture Urine, indwelling catheter (09/11/2024 4:07 AM CDT) Report Final Report: Less than 10,000 colonies/ml of Gram Positive Organism No further workup. (.) Organism GRAM POSITIVE ORGANISM [facility] Urine, indwelling catheter 09/11/2024 4:07 AM CDT 09/11/2024 6:47 AM CDT Narrative [facility] - 09/13/2024 7:16 AM CDT Urine culture reflexed based upon urinalysis results. us Emory Santana MD LAB MICROBIOLOGY - GENERAL ORDERABLES Final Result Performing Organization Address [facility]/ZIP Co de Phone Number [facility] [address] Department [employer] [place] [address] * (ABNORMAL) eGFR (09/11/2024 2:32 AM CDT) eGFR 29(L) >=60 mL/min/1. 73 m2 Comment: Interpretive Data [...] interpretive data was last reviewed 2021. Blood 09/11/2024 2:32 AM CDT 09/11/2024 2:46 AM CDT us Emory Santana MD LAB BLOOD ORDERABLES Final Result Performing Organization Address City/[facility]/ZIP Co de Phone Number [facility] [address] Department [place] [address] * (ABNORMAL) Differential, auto (09/11/2024 2:32 AM CDT) Neutrophil abs 12.22(H) 1.50 - 6.50 K/cumm Imm gran abs 0.10 0.00 - 0.10 K/cumm [facility] Lymphocyte abs 0.79(L) 0.80 - 3.30 K/cumm [facility] Monocyte abs 1.12(H) 0.20 - 0.80 K/cumm [facility] Eosinophil abs 0.00 0.00 - 0.50 K/cumm [facility] Basophil abs 0.03 0.00 - 0.10 K/cumm [facility] Neutrophil pct 85.7 % [facility] Comment: Interpretive Data Percent cell count reference ranges are not reported, since discordance with absolute values may lead to misinterpretation of CBC data. Current Interpretive Data was last revised on 2017. Imm gran pct 0.7 % [facility] Comment: Interpretive Data Percent cell count reference ranges are not reported, since discordance with absolute values may lead to misinterpretation of CBC data. Current Interpretive Data was last revised on 2017. Lymphocyte pct 5.5 % [facility] Comment: Interpretive Data Percent cell count reference ranges are not reported, since discordance with absolute values may lead to misinterpretation of CBC data. Current Interpretive Data was last revised on 2017. Monocyte pct 7.9 % [facility] Comment: Interpretive Data Percent cell count reference ranges are not reported, since discordance with absolute values may lead to misinterpretation of CBC data. Current Interpretive Data was last revised on 2017. Eosinophil pct 0.0 % [facility] Comment: Interpretive Data Percent cell count reference ranges are not reported, since discordance with absolute values may lead to misinterpretation of CBC data. Current Interpretive Data was last revised on 2017. Basophil pct 0.2 % [facility] Comment: Interpretive Data Percent cell count reference ranges are not reported, since discordance with absolute values may lead to misinterpretation of CBC data. Current Interpretive Data was last revised on 2017. Blood 09/11/2024 2:32 AM CDT 09/11/2024 2:46 AM CDT us Emory Santana MD LAB BLOOD ORDERABLES Final Result Performing Organization Address [facility] Co de Phone Number [facility] [address] [facility] of [employer] [place], [place] [phone] * (ABNORMAL) CBC with auto differential (09/11/2024 2:32 AM CDT) Pathologist [facility] WBC 14.26(H) 3.80 - 9.90 K/cumm Hgb 11.6(L) 13.0 - 17.5 g/dL [facility] Hct 34.8(L) 38.9 - 50.3 % [facility] Plt 171 150 - 400 K/cumm [facility] MPV 9.8 9.1 - 12.3 fL [facility] RBC 3.59(L) 4.30 - 5.80 M/cumm [facility] MCV 96.9(H) 81.3 - 96.4 fL [facility] MCH 32.3 27.1 - 33.3 pg [facility] MCHC 33.3 32.3 - 35.7 g/dL [facility] RDW CV 16.1(H) 11.1 - 14.9 % [facility] RDW SD 57.1(H) 35.7 - 48.1 fL [facility] NRBC abs 0.00 0.00 - 0.01 K/cumm [facility] Blood 09/11/2024 2:32 AM CDT 09/11/2024 2:46 AM CDT us Emory Santana MD LAB BLOOD ORDERABLES Final Result Performing Organization Address [facility]/ZIP Co de Phone Number [facility] [address] [facility] [employer] [place], [place] [phone] * aPTT (09/11/2024 2:32 AM CDT) Pathologist [facility] aPTT 32 28 - 38 sec Comment: Interpretive Data Heparin therapeutic range: 66.0 - 100.0 seconds. Range based on correlation with therapeutic heparin activity range of 0.3 - 0.7 Units/mL. Current interpretive data was last revised on 2023. Blood 09/11/2024 2:32 AM CDT 09/11/2024 2:46 AM CDT Emory Santana MD LAB BLOOD ORDERABLES Final Result Performing Organization Address [facility] de Phone Number [facility] [address] Department of [employer] [place] [address] * (ABNORMAL) Protime-INR (09/11/2024 2:32 AM CDT) PT 16.4(H) 9.7 - 13.0 sec INR 1.51(H) 0.90 - 1.20 [facility] Comment: Interpretive data Oral anticoagulant therapeutic ranges: Venous thromboembolism prophylaxis or treatment: 2.0-3.0 CARDIOLOGY Standard range: 2.0-3.0 High-intensity range: 2.5-3.5 Refer to indication-specific guidelines for appropriate target ranges for prosthetic heart valve replacement. Current interpretive data was last revised on 2019. Blood 09/11/2024 2:32 AM CDT 09/11/2024 2:46 AM CDT Emory Santana MD LAB BLOOD ORDERABLES Final Result Performing Organization Address [facility] Co de Phone Number [facility] [address] Department of [employer] [place] [address] * Vancomycin level random (09/11/2024 2:32 AM CDT) Vancomycin random <4.0 mcg/mL Comment: Interpretive Data No reference ranges have been established for random drug levels. Current Interpretive Data was last revised on 2020. Blood 09/11/2024 2:32 AM CDT 09/11/2024 2:46 AM CDT us Emory Santana MD LAB BLOOD ORDERABLES Final Result [facility] [address] Department [place] [address] * (ABNORMAL) Comprehensive metabolic panel (09/11/2024 2:32 AM CDT) Sodium 140 135 - 145 mmol/L Potassium, pl 3.7 3.3 - 4.9 mmol/L [facility] Chloride 103 97 - 110 mmol/L [facility] CO2 22 22 - 32 mmol/L [facility] Anion gap 15 2 - 15 mmol/L [facility] BUN 35(H) 6 - 25 mg/dL [facility] Creatinine 2.36(H) 0.80 - 1.30 mg/dL [facility] Glucose 128 70 - 199 mg/dL [facility] Comment: Interpretive Data Fasting glucose >/= [...] interpretive data was last revised 2022. Calcium 8.7 8.5 - 10.3 mg/dL [facility] Bilirubin, total 1.0 0.1 - 1.2 mg/dL [facility] Protein, pl 6.2(L) 6.5 - 8.5 g/dL [facility] Albumin 3.8 3.5 - 5.0 g/dL [facility] Alk phos 63 40 - 130 Units/L [facility] ALT 13 7 - 55 Units/L [facility] AST 15 10 - 50 Units/L [facility] Blood 09/11/2024 2:32 AM CDT 09/11/2024 2:46 AM CDT us Emory Santana MD LAB BLOOD ORDERABLES Final Result [facility] [address] Department of Laboratories [place], [place] [phone] * Differential, auto (08/31/2024 8:12 AM CDT) Neutrophil abs 6.0 1.5 - 6.5 K/cumm Comment:Testing performed by : [facility], [address] [place], [place] [phone] Lymphocyte abs 1.0 0.8 - 3.3 K/cumm [facility] Comment:Testing performed by : [facility], [address] [place] [address] Monocyte abs 0.6 0.2 - 0.8 K/cumm [facility] Comment:Testing performed by : [facility], [address] [place] [phone] Eosinophil abs 0.3 0.0 - 0.5 K/cumm [facility] Comment:Testing performed by : [facility], [address] [place] [phone] Basophil abs 0.1 0.0 - 0.1 K/cumm [facility] Comment:Testing performed by : [facility], [address] [place] [phone] Neutrophil pct 75.2 % [facility] Comment: Interpretive Data Percent cell count reference ranges are not reported, since discordance with absolute values may lead to misinterpretation of CBC data. Current Interpretive Data was last revised on 2017. Testing performed by: [facility], [address] [place] [phone] Lymphocyte pct 12.4 % [facility] Comment: Interpretive Data Percent cell count reference ranges are not reported, since discordance with absolute values may lead to misinterpretation of CBC data. Current Interpretive Data was last revised on 2017. Testing performed by: [facility], [address] [place] [address] Monocyte pct 7.9 % [facility] Comment: Interpretive Data Percent cell count reference ranges are not reported, since discordance with absolute values may lead to misinterpretation of CBC data. Current Interpretive Data was last revised on 2017. Testing performed by: [facility], [address] [place] [phone] Eosinophil pct 3.9 % [facility] Comment: Interpretive Data Percent cell count reference ranges are not reported, since discordance with absolute values may lead to misinterpretation of CBC data. Current Interpretive Data was last revised on 2017. Testing performed by: [facility], [address] [place] [phone] Basophil pct 0.6 % [facility] Comment: Interpretive Data Percent cell count reference ranges are not reported, since discordance with absolute values may lead to misinterpretation of CBC data. Current Interpretive Data was last revised on 2017. Testing performed by: [facility], [address] [place] [address] Blood 08/31/2024 8:12 AM CDT 08/31/2024 8:16 AM CDT Hermelindo Butler MD LAB BLOOD ORDER ELANA Final Result [facility] Department [place] [address] * (ABNORMAL) CBC with auto differential (08/31/2024 8:12 AM CDT) WBC 8.0 3.8 - 9.9 K/cumm Comment:Testing performed by : [facility], [address] [place] [phone] Hgb 12.7(L) 13.0 - 17.5 g/dL [facility] Comment:Testing performed by : [facility], [address] [place] [address] Hct 37.8(L) 38.9 - 50.3 % [facility] Comment:Testing performed by : [facility], [address] [place] [address] Plt 176 150 - 400 K/cumm [facility] Comment:Testing performed by : [facility], [address] [place] [address] MPV 7.7 6.8 - 10.4 fL [facility] Comment:Testing performed by : [facility], [address] [place], [place] [phone] RBC 4.07(L) 4.30 - 5.80 M/cumm [facility] Comment:Testing performed by : [facility], [address] [place], [place] [phone] MCV 92.8 81.3 - 96.4 fL [facility] Comment:Testing performed by : [facility], [address] [place], [place] [phone] MCH 31.2 27.1 - 33.3 pg [facility] Comment:Testing performed by : [facility], [address] [place] [address] MCHC 33.6 32.3 - 35.7 g/dL [facility] Comment:Testing performed by : [facility], [address] [place] [address] RDW CV 16.1(H) 11.1 - 14.9 % [facility] Comment:Testing performed by : [facility], [address] [place] [address] NRBC abs 0.00 0.00 - 0.01 K/cumm [facility] Comment:Testing performed by : [facility], [address] [place] [address] Blood 08/31/2024 8:12 AM CDT 08/31/2024 8:16 AM CDT us Hermelindo Butler MD LAB BLOOD ORDER ELANA Final Result [facility] [place] [address] * Type and screen (08/31/2024 8:12 AM CDT) [facility] ABO Rh A Positive Yehuda, indirect Negative [facility] Comment:Patient has previous antibody history Blood 08/31/2024 8:12 AM CDT 08/31/2024 8:25 AM CDT Narrative [facility] - 08/31/2024 9:28 AM CDT Has the patient had Daratumumab or Isatuximab in the past 6 months?->Unknown Hermelindo Butler MD LAB BLOOD BANK TEST ORDERABLES Final Result Performing Organization Address City/[facility] Co de Phone Number [facility] [place] [address] * Immunotyping, serum with interpretation (08/31/2024 8:12 AM CDT) [facility] Immunosubtraction Please see comment Comment: NO PARAPROTEIN DETECTED Reviewed and signed by Ivan Sims MD, PhD 09/01/2024 Blood 08/31/2024 8:12 AM CDT 08/31/2024 9:34 AM CDT Hermelindo Butler MD LAB BLOOD ORDER ELANA Final Result Performing Organization Address City/[facility] [place] [address] * (ABNORMAL) eGFR (08/31/2024 8:12 AM CDT) [facility] eGFR 45(L) >=60 mL/min/1. 73 m2 Comment: [...] MD LAB BLOOD ORDER ELANA Final Result [facility] Department [place] [address] * (ABNORMAL) Immunoglobulin free light chains (08/31/2024 8:12 AM CDT) [place]/Lambda ratio [facility] See Comment 0.26 - 1.65 Comment: Unable to calculate exact result. Interpretive Data The Binding Site FreeLite assay procedure was used. Results from different manufacturers or methods may not be comparable. Serial testing should be performed using the same methods and instrumentation. Current Interpretive Data was last revised on 2023. [place] free light chain [facility] <0.06(L) 0.33 - 1.94 mg/dL [facility] Comment: Interpretive Data The Binding Site FreeLite assay procedure was used. Results from different manufacturers or methods may not be comparable. Serial testing should be performed using the same methods and instrumentation. Current Interpretive Data was last revised on 2023. Lambda free light chain [facility] <0.14(L) 0.57 - 2.63 mg/dL [facility] Comment: Interpretive Data The [...] ELANA Final Result Performing Organization Address [facility] de Phone Number [facility] [employer] [place] [address] * (ABNORMAL) aPTT (08/31/2024 8:12 AM CDT) [...] ELANA Final Result Performing Organization Address [facility] [place] [address] * Protime-INR (08/31/2024 8:12 AM CDT) PT 11.4 9.7 - 13.0 sec INR 1.05 0.90 - 1.20 [facility] Comment: Interpretive data Oral anticoagulant therapeutic ranges: Venous thromboembolism prophylaxis or treatment: 2.0-3.0 CARDIOLOGY Standard range: 2.0-3.0 High-intensity range: 2.5-3.5 Refer to indication-specific guidelines for appropriate target ranges for prosthetic heart valve replacement. Current interpretive data was last revised on 2019. Blood 08/31/2024 8:12 AM CDT 08/31/2024 8:41 AM CDT Hermelindo Butler MD LAB BLOOD ORDER ELANA Final Result [facility] Department [place] [address] * (ABNORMAL) Protein electrophoresis with reflex, serum with interpretation (08/31/2024 8:12 AM CDT) Pathologist [facility] Protein, sr 6.0(L) 6.2 - 8.2 g/dL Albumin 3.9 3.2 - 5.0 g/dL [facility] Alpha-1 globulin 0.4 0.2 - 0.4 g/dL [facility] Alpha-2 globulin 0.7 0.5 - 1.0 g/dL [facility] Beta-1 globulin 0.5 0.3 - 0.6 g/dL [facility] Beta-2 globulin 0.3 0.2 - 0.6 g/dL [facility] Gamma globulin 0.2(L) 0.5 - 1.7 g/dL [facility] SPEP interp Please see comment [facility] Comment: No apparent monoclonal peak Decreased gamma globulins Electrophoretic pattern appears similar to previous sample 08/24/2024 See immunotyping for further information Reviewed and signed by Ivan Sims MD, PhD 09/01/2024 Blood 08/31/2024 8:12 AM CDT 08/31/2024 9:34 AM CDT Hermelindo Butler MD LAB BLOOD ORDER ELANA Final Result [facility] Department [place] [address] * Magnesium (08/31/2024 8:12 AM CDT) Magnesium 1.8 1.4 - 2.5 mg/dL Blood 08/31/2024 8:12 AM CDT 08/31/2024 8:20 AM CDT us Hermelindo Butler MD LAB BLOOD ORDER ELANA Final Result Performing Organization Address City/[facility] Co de Phone Number [facility] [place] [address] * Lactate dehydrogenase (LD) (08/31/2024 8:12 AM CDT) Lactate dehydrogenase (LDH) 155 100 - 250 Units/L Blood 08/31/2024 8:12 AM CDT 08/31/2024 8:20 AM CDT Hermelindo Butler MD LAB BLOOD ORDER ELANA Final Result Performing Organization Address [facility] de Phone Number [facility] Department [place] [address] * Gamma GT (08/31/2024 8:12 AM CDT) GGT 27 10 - 50 Units/L Blood 08/31/2024 8:12 AM CDT 08/31/2024 8:20 AM CDT us Hermelindo Butler MD LAB BLOOD ORDER ELANA Final Result Performing Organization Address [facility] Co de Phone Number [facility] Department [place] [address] * (ABNORMAL) IgA (08/31/2024 8:12 AM CDT) Immunoglobulin A <50(L) 70 - 400 mg/dL Blood 08/31/2024 8:12 AM CDT 08/31/2024 8:38 AM CDT Hermelindo Butler MD LAB BLOOD ORDER ELANA Final Result Performing Organization Address City/[facility] Co de Phone Number [facility] Department [place] [address] * (ABNORMAL) IgM (08/31/2024 8:12 AM CDT) [facility] Immunoglobulin M <25(L) 40 - 230 mg/dL Blood 08/31/2024 8:12 AM CDT 08/31/2024 8:38 AM CDT Hermelindo Butler MD LAB BLOOD ORDER ELANA Final Result [facility] [place] [address] * (ABNORMAL) IgG (08/31/2024 8:12 AM CDT) [facility] Immunoglobulin G <300(L) 700 - 1,600 mg/dL Blood 08/31/2024 8:12 AM CDT 08/31/2024 8:38 AM CDT Hermelindo Butler MD LAB BLOOD ORDER ELANA Final Result Performing Organization Address City/[facility] [place] [address] * (ABNORMAL) Comprehensive metabolic panel (08/31/2024 8:12 AM CDT) [facility] Sodium 141 135 - 145 mmol/L Potassium, pl 4.0 3.3 - 4.9 mmol/L [facility] Chloride 103 97 - 110 mmol/L [facility] CO2 29 22 - 32 mmol/L [facility] Anion gap 9 2 - 15 mmol/L [facility] BUN 31(H) 6 - 25 mg/dL [facility] Creatinine 1.61(H) 0.80 - 1.30 mg/dL [facility] Glucose 114 70 - 199 mg/dL [facility] Comment: Interpretive Data Fasting glucose [...] Calcium 9.4 8.5 - 10.3 mg/dL [facility] Bilirubin, total 0.4 0.1 - 1.2 mg/dL [facility] Protein, pl 6.5 6.5 - 8.5 g/dL [facility] Albumin 4.1 3.5 - 5.0 g/dL [facility] Alk phos 65 40 - 130 Units/L [facility] ALT 16 7 - 55 Units/L [facility] AST 15 10 - 50 Units/L [facility] Blood 08/31/2024 8:12 AM CDT 08/31/2024 8:20 AM CDT Hermelindo Butler MD LAB BLOOD ORDER ELANA Final Result [facility] Department [place] [address] * SCAN - LABS (08/30/2024) us Provider [...] Hargrove MD LAB BLOOD ORDERABLES Final Result [facility] Department [place] [address] * (ABNORMAL) Differential, auto (08/26/2024 12:25 AM CDT) Neutrophil abs 5.3 1.5 - 6.5 K/cumm Imm gran abs 0.0 0.0 - 0.1 K/cumm [facility] Lymphocyte abs 0.7(L) 0.8 - 3.3 K/cumm [facility] Monocyte abs 0.6 0.2 - 0.8 K/cumm [facility] Eosinophil abs 0.3 0.0 - 0.5 K/cumm [facility] Basophil abs 0.0 0.0 - 0.1 K/cumm [facility] Neutrophil pct 75.7 % [facility] Comment: Interpretive Data Percent cell count reference ranges are not reported, since discordance with absolute values may lead to misinterpretation of CBC data. Current Interpretive Data was last revised on 2017. Imm gran pct 0.4 % [facility] Comment: Interpretive Data Percent cell count reference ranges are not reported, since discordance with absolute values may lead to misinterpretation of CBC data. Current Interpretive Data was last revised on 2017. Lymphocyte pct 10.4 % [facility] Comment: Interpretive Data Percent cell count reference ranges are not reported, since discordance with absolute values may lead to misinterpretation of CBC data. Current Interpretive Data was last revised on 2017. Monocyte pct 9.0 % [facility] Comment: Interpretive Data Percent cell count reference ranges are not reported, since discordance with absolute values may lead to misinterpretation of CBC data. Current Interpretive Data was last revised on 2017. Eosinophil pct 4.4 % [facility] Comment: Interpretive Data Percent cell count reference ranges are not reported, since discordance with absolute values may lead to misinterpretation of CBC data. Current Interpretive Data was last revised on 2017. Basophil pct 0.1 % [facility] Comment: Interpretive Data Percent cell count reference ranges are not reported, since discordance with absolute values may lead to misinterpretation of CBC data. Current Interpretive Data was last revised on 2017. Blood 08/26/2024 12:2 5 AM CDT 08/26/2024 12:35 AM CDT Karlos Hargrove MD LAB BLOOD ORDERABLES Final Result [facility] Department [place] [address] * (ABNORMAL) CBC with auto differential (08/26/2024 12:25 AM CDT) WBC 7.0 3.8 - 9.9 K/cumm Hgb 11.8(L) 13.0 - 17.5 g/dL [facility] Hct 35.7(L) 38.9 - 50.3 % [facility] Plt 131(L) 150 - 400 K/cumm [facility] MPV 9.2 9.1 - 12.3 fL [facility] RBC 3.83(L) 4.30 - 5.80 M/cumm [facility] MCV 93.2 81.3 - 96.4 fL [facility] MCH 30.8 27.1 - 33.3 pg [facility] MCHC 33.1 32.3 - 35.7 g/dL [facility] RDW CV 15.4(H) 11.1 - 14.9 % [facility] RDW SD 51.7(H) 35.7 - 48.1 fL [facility] NRBC abs 0.00 0.00 - 0.01 K/cumm [facility] Blood 08/26/2024 12:2 5 AM CDT 08/26/2024 12:35 AM CDT us Karlos Hargrove MD LAB BLOOD ORDERABLES Final Result Performing Organization Address [facility] Co de Phone Number [facility] Department [place] [address] * Type and screen (08/26/2024 12:25 AM CDT) Yehuda, indirect Negative Comment:Patient has previous antibody history ABO Rh A Positive [facility] Blood 08/26/2024 12:2 5 AM CDT 08/26/2024 12:38 AM CDT Narrative [facility] - 08/26/2024 2:23 AM CDT Has the patient had Daratumumab or Isatuximab in the past 6 months?->Unknown us Karlos Hargrove MD LAB BLOOD BANK TEST ORDERA BLES Final Result Performing Organization Address [facility] de Phone Number [facility] Department [place] [address] * (ABNORMAL) Uric acid (08/26/2024 12:25 AM CDT) Uric acid 8.6(H) 3.0 - 8.0 mg/dL Blood 08/26/2024 12:2 5 AM CDT 08/26/2024 12:35 AM CDT Narrative [facility] - 08/26/2024 1:10 AM CDT Friday and only. Morning draw. . us Karlos Hargrove MD LAB BLOOD ORDERABLES Final Result Performing Organization Address [facility] Co de Phone Number [facility] [place] [address] * Phosphorus (08/26/2024 12:25 AM CDT) Phosphorus, pl 3.6 2.3 - 4.5 mg/dL Blood 08/26/2024 12:2 5 AM CDT 08/26/2024 12:35 AM CDT us Karlos Hargrove MD LAB BLOOD ORDERABLES Final Result Performing Organization Address [facility] de Phone Number [facility] [place] [address] * Magnesium (08/26/2024 12:25 AM CDT) Pathologist [facility] Magnesium 1.7 1.4 - 2.5 mg/dL Blood 08/26/2024 12:2 5 AM CDT 08/26/2024 12:35 AM CDT us Karlos Hargrove MD LAB BLOOD ORDERABLES Final Result Performing Organization Address [facility] de Phone Number [facility] [place] [address] * Lactate dehydrogenase (LD) (08/26/2024 12:25 AM CDT) Lactate dehydrogenase (LDH) 167 100 - 250 Units/L Blood 08/26/2024 12:2 5 AM CDT 08/26/2024 12:35 AM CDT Narrative [facility] - 08/26/2024 1:10 AM CDT Friday and only. Morning draw. us Karlos Hargrove MD LAB BLOOD ORDERABLES Final Result Performing Organization Address City/[facility] Co de Phone Number [facility] Department [place] [address] * (ABNORMAL) Comprehensive metabolic panel (08/26/2024 12:25 AM CDT) Sodium 148(H) 135 - 145 mmol/L Potassium, pl 3.4 3.3 - 4.9 mmol/L [facility] Chloride 108 97 - 110 mmol/L [facility] CO2 28 22 - 32 mmol/L [facility] Anion gap 12 2 - 15 mmol/L [facility] BUN 35(H) 6 - 25 mg/dL [facility] Creatinine 2.27(H) 0.80 - 1.30 mg/dL [facility] Glucose 107 70 - 199 mg/dL [facility] Comment: Interpretive Data Fasting glucose [...] 2022. Calcium 8.9 8.5 - 10.3 mg/dL [facility] Bilirubin, total 0.6 0.1 - 1.2 mg/dL [facility] Protein, pl 5.9(L) 6.5 - 8.5 g/dL [facility] Albumin 3.7 3.5 - 5.0 g/dL [facility] Alk phos 60 40 - 130 Units/L [facility] ALT 15 7 - 55 Units/L [facility] AST 13 10 - 50 Units/L [facility] Blood 08/26/2024 12:2 5 AM CDT 08/26/2024 12:35 AM CDT Karlos Hargrove MD LAB BLOOD ORDERABLES Final Result [facility] Department [place] [address] * US Vein Duplex Lower Extremity Bilateral Complete (08/25/2024 9:30 AM CDT) Anatomical Region Laterality Modality Vascular Bilateral Ultrasound 08/25/2024 8:37 AM CDT Narrative 08/27/2024 11:10 AM CDT [facility] - Department of Vascular Surgery, Vascular Laboratory [address] [place] [id number] Lower Extremity Venous Ultrasound Report Patient Name: BUFFY VALLE B : 1950 (73y 8m) Study Date: 08/25/2024 8:37:41 AM Gender: M Tech: Location: [id number] Ref Provider: OLGA KEITH Quality: Adequate Order Provider: OLGA KEITH PROCEDURES: Vascular Report: Venous Duplex imaging was performed bilaterally in the lower extremities. The common femoral, femoral, popliteal, posterior tibial, peroneal veins were evaluated for patency, spontaneity and phasicity with Doppler, compression and augmentation maneuvers. Great saphenous vein proximal at the junction was evaluated with compression maneuvers. INDICATIONS: Localized edema. FINDINGS: Performing Stonemason Supervisor: Farzana Owens RVT. Bilateral: Venous Doppler signals [...] Signed By: Cesar Cabello MD [facility] [phone] 08/27/2024 10:10:26 AM CDT Procedure Note Cesar Cabello MD - 08/27/2024 [facility] - Department of Vascular Surgery,Vascular Laboratory [address] [place] [address] Lower Extremity Venous Ultrasound Report Patient Name: BUFFY VALLE B : 1950 (73y 8m) Study Date: 08/25/2024 8:37:41 AM Gender: M Tech: Location: [id number] Ref Provider: OLGA KEITH Quality: Adequate Order Provider: OLGA KEITH PROCEDURES: Vascular Report: Venous Duplex imaging was performed bilaterally in the lower extremities.The common femoral, femoral, popliteal, posterior tibial, peroneal veins wereevaluated for patency, spontaneity and phasicity with Doppler, compression and augmentationmaneuvers. Great saphenous vein proximal at the junction was evaluated with compressionmaneuvers. INDICATIONS: Localized edema. FINDINGS: Performing Stonemason Supervisor: Farzana Owens RVT. Bilateral: Venous Doppler signals [...] Signed By: Cesar Cabello MD [facility] [phone] 08/27/2024 10:10:26 AM CDT Olga Keith MD [facility] US PROCEDURES Final Result * [...] Hargrove MD LAB BLOOD ORDERABLES Final Result [facility] Department [place] [address] * (ABNORMAL) Differential, auto (08/25/2024 12:34 AM CDT) Neutrophil abs 5.2 1.5 - 6.5 K/cumm Imm gran abs 0.1 0.0 - 0.1 K/cumm [facility] Lymphocyte abs 0.5(L) 0.8 - 3.3 K/cumm [facility] Monocyte abs 0.5 0.2 - 0.8 K/cumm [facility] Eosinophil abs 0.4 0.0 - 0.5 K/cumm [facility] Basophil abs 0.0 0.0 - 0.1 K/cumm [facility] Neutrophil pct 77.6 % [facility] Comment: Interpretive Data Percent cell count reference ranges are not reported, since discordance with absolute values may lead to misinterpretation of CBC data. Current Interpretive Data was last revised on 2017. Imm gran pct 0.7 % [facility] Comment: Interpretive Data Percent cell count reference ranges are not reported, since discordance with absolute values may lead to misinterpretation of CBC data. Current Interpretive Data was last revised on 2017. Lymphocyte pct 7.9 % [facility] Comment: Interpretive Data Percent cell count reference ranges are not reported, since discordance with absolute values may lead to misinterpretation of CBC data. Current Interpretive Data was last revised on 2017. Monocyte pct 7.5 % [facility] Comment: Interpretive Data Percent cell count reference ranges are not reported, since discordance with absolute values may lead to misinterpretation of CBC data. Current Interpretive Data was last revised on 2017. Eosinophil pct 6.0 % [facility] Comment: Interpretive Data Percent cell count reference ranges are not reported, since discordance with absolute values may lead to misinterpretation of CBC data. Current Interpretive Data was last revised on 2017. Basophil pct 0.3 % [facility] Comment: Interpretive Data Percent cell count reference ranges are not reported, since discordance with absolute values may lead to misinterpretation of CBC data. Current Interpretive Data was last revised on 2017. Blood 08/25/2024 12:3 4 AM CDT 08/25/2024 12:57 AM CDT us Karlos Hargrove MD LAB BLOOD ORDERABLES Final Result [facility] Department [place] [address] * (ABNORMAL) CBC with auto differential (08/25/2024 12:34 AM CDT) WBC 6.7 3.8 - 9.9 K/cumm Hgb 11.2(L) 13.0 - 17.5 g/dL [facility] Hct 33.3(L) 38.9 - 50.3 % [facility] Plt 136(L) 150 - 400 K/cumm [facility] MPV 9.5 9.1 - 12.3 fL [facility] RBC 3.57(L) 4.30 - 5.80 M/cumm [facility] MCV 93.3 81.3 - 96.4 fL [facility] MCH 31.4 27.1 - 33.3 pg [facility] MCHC 33.6 32.3 - 35.7 g/dL [facility] RDW CV 15.3(H) 11.1 - 14.9 % [facility] RDW SD 51.0(H) 35.7 - 48.1 fL [facility] NRBC abs 0.00 0.00 - 0.01 K/cumm [facility] Blood 08/25/2024 12:3 4 AM CDT 08/25/2024 12:57 AM CDT us Karlos Hargrove MD LAB BLOOD ORDERABLES Final Result Performing Organization Address City/[facility] Co de Phone Number [facility] Department [place] [address] * Phosphorus (08/25/2024 12:34 AM CDT) Phosphorus, pl 3.7 2.3 - 4.5 mg/dL Blood 08/25/2024 12:3 4 AM CDT 08/25/2024 12:55 AM CDT us Karlos Hargrove MD LAB BLOOD ORDERABLES Final Result [facility] Department [place] [address] * Magnesium (08/25/2024 12:34 AM CDT) Magnesium 1.9 1.4 - 2.5 mg/dL Blood 08/25/2024 12:3 4 AM CDT 08/25/2024 12:55 AM CDT us Karlos Hargrove MD LAB BLOOD ORDERABLES Final Result [facility] Department [place] [address] * (ABNORMAL) Comprehensive metabolic panel (08/25/2024 12:34 AM CDT) Sodium 147(H) 135 - 145 mmol/L Potassium, pl 3.2(L) 3.3 - 4.9 mmol/L [facility] Chloride 109 97 - 110 mmol/L [facility] CO2 26 22 - 32 mmol/L [facility] Anion gap 12 2 - 15 mmol/L [facility] BUN 47(H) 6 - 25 mg/dL [facility] Creatinine 2.74(H) 0.80 - 1.30 mg/dL [facility] Glucose 154 70 - 199 mg/dL [facility] Comment: Interpretive Data Fasting glucose [...] 2022. Calcium 8.4(L) 8.5 - 10.3 mg/dL [facility] Bilirubin, total 0.4 0.1 - 1.2 mg/dL [facility] Protein, pl 5.9(L) 6.5 - 8.5 g/dL [facility] Albumin 3.9 3.5 - 5.0 g/dL [facility] Alk phos 61 40 - 130 Units/L [facility] ALT 18 7 - 55 Units/L [facility] AST 17 10 - 50 Units/L [facility] Blood 08/25/2024 12:3 4 AM CDT 08/25/2024 12:55 AM CDT Karlos Hargrove MD LAB BLOOD ORDERABLES Final Result [facility] [place] [address] * Sodium, urine, random (08/24/2024 5:16 PM CDT) Sodium, ur 44 mmol/L Comment: Interpretive Data No reference range established. Current interpretive data was last revised 2018. Urine 08/24/2024 5:16 PM CDT 08/24/2024 5:31 PM CDT Olga Keith MD LAB URINE ORDERABLES Final Resul t Performing Organization Address [facility] Co de Phone Number [facility] Department [place] [address] * CT Abdomen Pelvis WO Contrast (08/24/2024 [...] gran abs 0.0 0.0 - 0.1 K/cumm [facility] Lymphocyte abs 0.7(L) 0.8 - 3.3 K/cumm [facility] Monocyte abs 0.6 0.2 - 0.8 K/cumm [facility] Eosinophil abs 0.5 0.0 - 0.5 K/cumm [facility] Basophil abs 0.0 0.0 - 0.1 K/cumm [facility] Neutrophil pct 73.7 % [facility] Comment: Interpretive Data Percent cell count reference ranges are not reported, since discordance with absolute values may lead to misinterpretation of CBC data. Current Interpretive Data was last revised on 2017. Imm gran pct 0.6 % [facility] Comment: Interpretive Data Percent cell count reference ranges are not reported, since discordance with absolute values may lead to misinterpretation of CBC data. Current Interpretive Data was last revised on 2017. Lymphocyte pct 10.0 % [facility] Comment: Interpretive Data Percent cell count reference ranges are not reported, since discordance with absolute values may lead to misinterpretation of CBC data. Current Interpretive Data was last revised on 2017. Monocyte pct 8.3 % [facility] Comment: Interpretive Data Percent cell count reference ranges are not reported, since discordance with absolute values may lead to misinterpretation of CBC data. Current Interpretive Data was last revised on 2017. Eosinophil pct 7.1 % [facility] Comment: Interpretive Data Percent cell count reference ranges are not reported, since discordance with absolute values may lead to misinterpretation of CBC data. Current Interpretive Data was last revised on 2017. Basophil pct 0.3 % [facility] Comment: Interpretive Data Percent cell count reference ranges are not reported, since discordance with absolute values may lead to misinterpretation of CBC data. Current Interpretive Data was last revised on 2017. Blood 08/24/2024 2:30 AM CDT 08/24/2024 1:28 AM CDT Karlos Hargrove MD LAB BLOOD ORDERABLES Final Result [facility] Department [place] [address] * (ABNORMAL) CBC with auto differential (08/24/2024 2:30 AM CDT) WBC 6.6 3.8 - 9.9 K/cumm Hgb 10.9(L) 13.0 - 17.5 g/dL [facility] Hct 33.1(L) 38.9 - 50.3 % [facility] Plt 130(L) 150 - 400 K/cumm [facility] MPV 10.0 9.1 - 12.3 fL [facility] RBC 3.50(L) 4.30 - 5.80 M/cumm [facility] MCV 94.6 81.3 - 96.4 fL [facility] MCH 31.1 27.1 - 33.3 pg [facility] MCHC 32.9 32.3 - 35.7 g/dL [facility] RDW CV 15.3(H) 11.1 - 14.9 % [facility] RDW SD 51.8(H) 35.7 - 48.1 fL [facility] NRBC abs 0.00 0.00 - 0.01 K/cumm [facility] Blood 08/24/2024 2:30 AM CDT 08/24/2024 1:28 AM CDT Karlos Hargrove MD LAB BLOOD ORDERABLES Final Result Performing Organization Address City/[facility]/ZIP Co de Phone Number [facility] Department [place] [address] * (ABNORMAL) eGFR (08/24/2024 1:12 AM CDT) [...] BLOOD ORDERABLES Final Result Performing Organization Address City/[facility]/ZIP Co de Phone Number [facility] Department [place] [address] * aPTT (08/24/2024 1:12 AM CDT) aPTT [...] BLOOD ORDERABLES Final Result Performing Organization Address [facility] [place] [address] * Protime-INR (08/24/2024 1:12 AM CDT) Pathologist [facility] PT 11.7 9.7 - 13.0 sec INR 1.08 0.90 - 1.20 [facility] Comment: Interpretive data Oral [...] BLOOD ORDERABLES Final Result Performing Organization Address City/[facility] Co de Phone Number [facility] [place] [address] * Type and screen (08/24/2024 1:12 AM CDT) Yehuda, indirect Negative Comment:Patient has previous antibody history ABO Rh A Positive [facility] Blood 08/24/2024 1:12 AM CDT 08/24/2024 1:36 AM CDT Narrative [facility] - 08/24/2024 2:36 AM CDT Has the patient had Daratumumab or Isatuximab in the past 6 months?->Unknown us Karlos Hargrove MD LAB BLOOD BANK TEST ORDERA BLES Final Result Performing Organization Address [facility] Co de Phone Number [facility] [employer] [place] [address] * (ABNORMAL) Uric acid (08/24/2024 1:12 AM CDT) Pathologist [facility] Uric acid 9.5(H) 3.0 - 8.0 mg/dL Blood 08/24/2024 1:12 AM CDT 08/24/2024 1:35 AM CDT Narrative [facility] - 08/24/2024 2:47 AM CDT Friday and only. Morning draw. . us Karlos Hargrove MD LAB BLOOD ORDERABLES Final Result Performing Organization Address [facility] de Phone Number [facility] Department of [employer] [place] [address] * Phosphorus (08/24/2024 1:12 AM CDT) Pathologist [facility] Phosphorus, pl 4.5 2.3 - 4.5 mg/dL Blood 08/24/2024 1:12 AM CDT 08/24/2024 1:35 AM CDT us Karlos Hargrove MD LAB BLOOD ORDERABLES Final Result Performing Organization Address [facility] Co de Phone Number [facility] [place] [address] * Magnesium (08/24/2024 1:12 AM CDT) [facility] Magnesium 2.0 1.4 - 2.5 mg/dL Blood 08/24/2024 1:12 AM CDT 08/24/2024 1:35 AM CDT Karlos Hargrove MD LAB BLOOD ORDERABLES Final Result Performing Organization Address City/[facility] Co de Phone Number [facility] Department [place] [address] * Lactate dehydrogenase (LD) (08/24/2024 1:12 AM CDT) [facility] Lactate dehydrogenase (LDH) 226 100 - 250 Units/L Blood 08/24/2024 1:12 AM CDT 08/24/2024 1:35 AM CDT Narrative [facility] - 08/24/2024 2:47 AM CDT Friday and only. Morning draw. Karlos Hargrove MD LAB BLOOD ORDERABLES Final Result Performing Organization Address [facility] de Phone Number [facility] Department [place] [address] * (ABNORMAL) Comprehensive metabolic panel (08/24/2024 1:12 AM CDT) [facility] Sodium 148(H) 135 - 145 mmol/L Potassium, pl 3.6 3.3 - 4.9 mmol/L [facility] Chloride 111(H) 97 - 110 mmol/L [facility] CO2 25 22 - 32 mmol/L [facility] Anion gap 12 2 - 15 mmol/L [facility] BUN 56(H) 6 - 25 mg/dL [facility] Creatinine 3.16(H) 0.80 - 1.30 mg/dL [facility] Glucose 102 70 - 199 mg/dL [facility] Comment: Interpretive Data Fasting glucose [...] 2022. Calcium 8.5 8.5 - 10.3 mg/dL [facility] Bilirubin, total 0.4 0.1 - 1.2 mg/dL [facility] Protein, pl 5.7(L) 6.5 - 8.5 g/dL [facility] Albumin 3.6 3.5 - 5.0 g/dL [facility] Alk phos 62 40 - 130 Units/L [facility] ALT 16 7 - 55 Units/L [facility] AST 11 10 - 50 Units/L [facility] Blood 08/24/2024 1:12 AM CDT 08/24/2024 1:35 AM CDT us Karlos Hargrove MD LAB BLOOD ORDERABLES Final Result [facility] Department [place] [address] * US Kidney Complete (08/23/2024 8:12 PM CDT) Anatomical Region Laterality Modality Kidney N/A Ultrasound 08/23/2024 8:24 PM CDT Impressions 08/23/2024 9:09 PM CDT Unchanged mild to moderate right and mild left hydronephrosis. Dictated by: Nnamdi Nair MD The radiology attending physician has personally reviewed this study, and had reviewed and/or edited this written report and agrees with it. Electronically signed by: Qian Barnse M.D. Narrative 08/23/2024 9:09 PM CDT EXAMINATION: [...] gravity, ur 1.011 1.003 - 1.030 [facility] pH, urine 5.5 [facility] Comment: Interpretive Data U rine pH is affected by diet, medications, systemic acid-base disturbances, and renal tubular function. pH may affect urinary stone formation. For example, urine pH below 6.0 may help reduce the tendency for calcium phosphate stones and pH greater than 6.0 may reduce the tendency for uric acid stone formation. Source: [employer] Current Interpretive Data was last revised on 2017 Protein, ur ql Negative Negative [facility] Glucose, ur ql Negative Negative [facility] Ketones, ur Negative Negative [facility] Bilirubin, ur Negative Negative [facility] Blood, ur 2+(A) Negative [facility] Urobilinogen, ur <2.0 <2.0 mg/dL [facility] Nitrite, ur Negative Negative [facility] Leukocyte esterase, ur Trace(A) Negative [facility] UA reflex comment Reflex to microscopic UA will be performed. [facility] Urine 08/23/2024 7:01 PM CDT 08/23/2024 7:15 PM CDT Kinga Jones [employer] LAB URINE ORDERABLES [place] l Result Performing Organization Address [facility] Co de Phone Number [facility] [facility] [employer] [place] [address] * Protein / creatinine ratio, urine, random (08/23/2024 7:01 PM CDT) Protein, ur, quant 6.4 mg/dL Comment: Interpretive Data No reference range established. Current interpretive data was last revised 2018. Creatinine Ur 74.0 mg/dL [facility] Comment: Interpretive Data No reference range established. Current interpretive data was last revised 2018. Protein/creatinin e ratio 86.5 0.0 - 180.0 mg/g CR [facility] Urine 08/23/2024 7:01 PM CDT 08/23/2024 7:28 PM CDT Kinga Jones PLANNER CHIEF LAB URINE ORDERABLES Angeles l Result Performing Organization Address [facility] Co de Phone Number [facility] [employer] [place] [address] * (ABNORMAL) Urinalysis, microscopic only (08/23/2024 7:01 PM CDT) WBC, ur 0-5 0 - 5 /HPF RBC, ur 6-10(A) 0 - 2 /HPF [facility] Urine 08/23/2024 7:01 PM CDT 08/23/2024 7:15 PM CDT Kinga Jones NP LAB URINE ORDERABLES Angeles l Result Performing Organization Address [facility] Co de Phone Number [facility] Department [place] [address] * Urine culture Urine, clean voided (08/23/2024 7:01 PM CDT) Report Final Report: Less than 100,000 colonies/mL (clinically insignificant growth based on current clinical standards) Organism (CLINICALLY INSIGNIFICANT GROWTH [facility] Urine, clean voided 08/23/2024 7:01 PM CDT 08/23/2024 8:52 PM CDT Narrative [facility] - 08/25/2024 8:02 AM CDT Indications for Culture:->Other (specify) Other Indication:->elevated creatinine Specimen received in a sterile container. Testing performed by [facility] ([phone]) Kinga Jones NP LAB MICROBIOLOGY - GENERA L ORDERABLES Final Result Performing Organization Address [facility] de Phone Number [facility] Department [place] [address] * Immunotyping, serum with interpretation (08/23/2024 6:04 PM CDT) Immunosubtraction Please see comment Comment: NO PARAPROTEIN DETECTED Reviewed and signed by Fernando Nunez MD, PhD 08/24/2024 Blood 08/23/2024 6:04 PM CDT 08/23/2024 6:13 PM CDT Hermelindo Butler MD LAB BLOOD ORDER ELANA Final Result Performing Organization Address City/[facility] Co de Phone Number [facility] Department [place] [address] * (ABNORMAL) eGFR (08/23/2024 6:04 PM CDT) Pathologist [facility] eGFR 19(L) >=60 mL/min/1. 73 m2 Comment: [...] MD LAB BLOOD ORDER ELANA Final Result [facility] Department [place] [address] * (ABNORMAL) Differential, auto (08/23/2024 6:04 PM CDT) Pathologist [facility] Neutrophil abs 6.5 1.5 - 6.5 K/cumm Imm gran abs 0.0 0.0 - 0.1 K/cumm [facility] Lymphocyte abs 0.7(L) 0.8 - 3.3 K/cumm [facility] Monocyte abs 0.6 0.2 - 0.8 K/cumm [facility] Eosinophil abs 0.6(H) 0.0 - 0.5 K/cumm [facility] Basophil abs 0.0 0.0 - 0.1 K/cumm [facility] Neutrophil pct 77.0 % [facility] Comment: Interpretive Data Percent cell count reference ranges are not reported, since discordance with absolute values may lead to misinterpretation of CBC data. Current Interpretive Data was last revised on 2017. Imm gran pct 0.5 % [facility] Comment: Interpretive Data Percent cell count reference ranges are not reported, since discordance with absolute values may lead to misinterpretation of CBC data. Current Interpretive Data was last revised on 2017. Lymphocyte pct 8.3 % [facility] Comment: Interpretive Data Percent cell count reference ranges are not reported, since discordance with absolute values may lead to misinterpretation of CBC data. Current Interpretive Data was last revised on 2017. Monocyte pct 7.3 % [facility] Comment: Interpretive Data Percent cell count reference ranges are not reported, since discordance with absolute values may lead to misinterpretation of CBC data. Current Interpretive Data was last revised on 2017. Eosinophil pct 6.5 % [facility] Comment: Interpretive Data Percent cell count reference ranges are not reported, since discordance with absolute values may lead to misinterpretation of CBC data. Current Interpretive Data was last revised on 2017. Basophil pct 0.4 % [facility] Comment: Interpretive Data Percent cell count reference ranges are not reported, since discordance with absolute values may lead to misinterpretation of CBC data. Current Interpretive Data was last revised on 2017. Blood 08/23/2024 6:04 PM CDT 08/23/2024 6:12 PM CDT us Hermelindo Butler MD LAB BLOOD ORDER ELANA Final Result [facility] Department [place] [address] * (ABNORMAL) Immunoglobulin free light chains (08/23/2024 6:04 PM CDT) [place]/Lambda ratio [facility] <0.40 0.26 - 1.65 Comment: Interpretive Data The Binding Site FreeLite assay procedure was used. Results from different manufacturers or methods may not be comparable. Serial testing should be performed using the same methods and instrumentation. Current Interpretive Data was last revised on 2023. [place] free light chain [facility] <0.06(L) 0.33 - 1.94 mg/dL [facility] Comment: Interpretive Data The Binding Site FreeLite assay procedure was used. Results from different manufacturers or methods may not be comparable. Serial testing should be performed using the same methods and instrumentation. Current Interpretive Data was last revised on 2023. Lambda free light chain [facility] 0.15(L) 0.57 - 2.63 mg/dL [facility] Comment: Interpretive Data The Binding Site FreeLite assay procedure was used. Results from different manufacturers or methods may not be comparable. Serial testing should be performed using the same methods and instrumentation. Current Interpretive Data was last revised on 2023. Blood 08/23/2024 6:04 PM CDT 08/23/2024 6:12 PM CDT Hermelindo Butler MD LAB BLOOD ORDER ELANA Final Result [facility] Department [place] [address] * (ABNORMAL) CBC with auto differential (08/23/2024 6:04 PM CDT) WBC 8.5 3.8 - 9.9 K/cumm Hgb 11.8(L) 13.0 - 17.5 g/dL [facility] Hct 35.6(L) 38.9 - 50.3 % [facility] Plt 131(L) 150 - 400 K/cumm [facility] MPV 9.8 9.1 - 12.3 fL [facility] RBC 3.78(L) 4.30 - 5.80 M/cumm [facility] MCV 94.2 81.3 - 96.4 fL [facility] MCH 31.2 27.1 - 33.3 pg [facility] MCHC 33.1 32.3 - 35.7 g/dL [facility] RDW CV 15.2(H) 11.1 - 14.9 % [facility] RDW SD 51.2(H) 35.7 - 48.1 fL [facility] NRBC abs 0.00 0.00 - 0.01 K/cumm [facility] Blood 08/23/2024 6:04 PM CDT 08/23/2024 6:12 PM CDT Hermelindo Butler MD LAB BLOOD ORDER ELANA Final Result [facility] Department [place] [address] * (ABNORMAL) Uric acid (08/23/2024 6:04 PM CDT) [facility] Uric acid 9.5(H) 3.0 - 8.0 mg/dL Blood 08/23/2024 6:04 PM CDT 08/23/2024 6:13 PM CDT Hermelindo Butler MD LAB BLOOD ORDER ELANA Final Result Performing Organization Address City/[facility]/ZIP Co de Phone Number [facility] Department [place] [address] * (ABNORMAL) Protein electrophoresis with reflex, serum with interpretation (08/23/2024 6:04 PM CDT) Protein, sr 5.9(L) 6.2 - 8.2 g/dL Albumin 3.9 3.2 - 5.0 g/dL [facility] Alpha-1 globulin 0.4 0.2 - 0.4 g/dL [facility] Alpha-2 globulin 0.7 0.5 - 1.0 g/dL [facility] Beta-1 globulin 0.4 0.3 - 0.6 g/dL [facility] Beta-2 globulin 0.3 0.2 - 0.6 g/dL [facility] Gamma globulin 0.2(L) 0.5 - 1.7 g/dL [facility] SPEP interp Please see comment [facility] Comment: No apparent monoclonal peak Decreased gamma globulins Electrophoretic pattern appears similar to previous sample 08/04/24 See immunotyping for further information Reviewed and signed by Fernando Nunez MD, PhD 08/24/2024 Blood 08/23/2024 6:04 PM CDT 08/23/2024 6:13 PM CDT Hermelindo Butler MD LAB BLOOD ORDER ELANA Final Result Performing Organization Address City/[facility] Co de Phone Number [facility] Department [place] [address] * (ABNORMAL) Phosphorus (08/23/2024 6:04 PM CDT) Phosphorus, pl 4.7(H) 2.3 - 4.5 mg/dL Blood 08/23/2024 6:04 PM CDT 08/23/2024 6:13 PM CDT Hermelindo Butler MD LAB BLOOD ORDER ELANA Final Result Performing Organization Address City/[facility]/ZIP Co de Phone Number [facility] Department [place] [address] * Magnesium (08/23/2024 6:04 PM CDT) Magnesium 1.9 1.4 - 2.5 mg/dL Blood 08/23/2024 6:04 PM CDT 08/23/2024 6:13 PM CDT Hermelindo Butler MD LAB BLOOD ORDER ELANA Final Result Performing Organization Address City/[facility]/ZIP Co de Phone Number [facility] Department [place] [address] * Lactate dehydrogenase (LD) (08/23/2024 6:04 PM CDT) Lactate dehydrogenase (LDH) 198 100 - 250 Units/L Blood 08/23/2024 6:04 PM CDT 08/23/2024 6:13 PM CDT Hermelindo Butler MD LAB BLOOD ORDER [place] [address] * (ABNORMAL) IgA (08/23/2024 6:04 PM CDT) Immunoglobulin A <50(L) 70 - 400 mg/dL Blood 08/23/2024 6:04 PM CDT 08/23/2024 6:13 PM CDT Hermelindo Butler MD LAB BLOOD ORDER ELANA Final Result Performing Organization Address City/[facility] Co de Phone Number [facility] Department [place] [address] * (ABNORMAL) IgM (08/23/2024 6:04 PM CDT) Immunoglobulin M <25(L) 40 - 230 mg/dL Blood 08/23/2024 6:04 PM CDT 08/23/2024 6:13 PM CDT Hermelindo Butler MD LAB BLOOD ORDER ELANA Final Result Performing Organization Address City/[facility] Co de Phone Number [facility] [place] [address] * (ABNORMAL) IgG (08/23/2024 6:04 PM CDT) Pathologist [facility] Immunoglobulin G <300(L) 700 - 1,600 mg/dL Blood 08/23/2024 6:04 PM CDT 08/23/2024 6:13 PM CDT Hermelindo Butler MD LAB BLOOD ORDER ELANA Final Result [facility] Department [place] [address] * (ABNORMAL) Comprehensive metabolic panel (08/23/2024 6:04 PM CDT) Pathologist [facility] Sodium 146(H) 135 - 145 mmol/L Potassium, pl 3.8 3.3 - 4.9 mmol/L [facility] Chloride 107 97 - 110 mmol/L [facility] CO2 26 22 - 32 mmol/L [facility] Anion gap 13 2 - 15 mmol/L [facility] BUN 58(H) 6 - 25 mg/dL [facility] Creatinine 3.37(H) 0.80 - 1.30 mg/dL [facility] Glucose 89 70 - 199 mg/dL [facility] Comment: Interpretive Data Fasting glucose [...] 2022. Calcium 8.9 8.5 - 10.3 mg/dL [facility] Bilirubin, total 0.4 0.1 - 1.2 mg/dL [facility] Protein, pl 6.2(L) 6.5 - 8.5 g/dL [facility] Albumin 4.0 3.5 - 5.0 g/dL [facility] Alk phos 68 40 - 130 Units/L [facility] ALT 16 7 - 55 Units/L [facility] AST 12 10 - 50 Units/L [facility] Blood 08/23/2024 6:04 PM CDT 08/23/2024 6:13 PM CDT Hermelindo Butler MD LAB BLOOD ORDER ELANA Final Result [facility] Department [place] [address] * SCAN - LABS (08/20/2024) us Provider Scanning Final Result * SCAN - LABS (08/10/2024) us Provider Scanning Final Result * US Kidney Complete (08/06/2024 2:42 PM NETWORK SUPPORT SPECIALIST) Anatomical Region Laterality Modality Kidney N/A Ultrasound 08/06/2024 3:27 PM NETWORK SUPPORT SPECIALIST Impressions 08/06/2024 3:27 PM NETWORK SUPPORT SPECIALIST 1. Mild nephromegaly with mild to moderate hydronephrosis bilaterally. 2. Incomplete bladder emptying with post void bladder residual of 397 mL. Electronically signed by: Dylan Tinajero M.D. Narrative 08/06/2024 3:27 PM NETWORK SUPPORT SPECIALIST EXAMINATION: COMPLETE RENAL SONOGRAM HISTORY: Rising creatinine. [...] by: Dylan Tinajero M.D. Hermelindo Butler MD [facility] PROCEDUR ES Final Result * (ABNORMAL) Urinalysis reflex to microscopic (08/06/2024 9:19 AM NETWORK SUPPORT SPECIALIST) Color, ur Straw Yellow Clarity, ur Clear Clear [facility] Specific gravity, ur 1.013 1.003 - 1.[address] [facility] [facility] pH, urine 5.5 [facility] Comment: Interpretive Data U rine pH is affected by diet, medications, systemic acid-base disturbances, and renal tubular function. pH may affect urinary stone formation. For example, urine pH below 6.0 may help reduce the tendency for calcium phosphate stones and pH greater than 6.0 may reduce the tendency for uric acid stone formation. Source: [facility] [employer] Current Interpretive Data was last revised on 2017 Protein, ur ql Negative Negative [facility] Glucose, ur ql Negative Negative [facility] Ketones, ur Negative Negative [facility] Bilirubin, ur Negative Negative [facility] Blood, ur 3+(A) Negative [facility] Urobilinogen, ur <2.0 <2.0 mg/dL [facility] Nitrite, ur Negative Negative [facility] Leukocyte esterase, ur Trace(A) [facility] UA reflex comment Reflex to microscopic UA will be performed. [facility] Urine 08/06/2024 9:19 AM NETWORK SUPPORT SPECIALIST 08/06/2024 9:19 AM NETWORK SUPPORT SPECIALIST Lyndsey Fagan PLANNER CHIEF LAB URINE ORDERABLES Angeles l Result Performing Organization Address [facility] [place] [address] * Protein / creatinine ratio, urine, random (08/06/2024 9:19 AM NETWORK SUPPORT SPECIALIST) Protein, ur, quant 7.9 mg/dL Comment: Interpretive Data No reference range established. Current interpretive data was last revised 2018. Creatinine Ur 77.4 mg/dL [facility] Comment: Interpretive Data No reference range established. Current interpretive data was last revised 2018. Protein/creatinin e ratio 102.1 0.0 - 180.0 mg/g CR [facility] Urine 08/06/2024 9:19 AM NETWORK SUPPORT SPECIALIST 08/06/2024 9:41 AM NETWORK SUPPORT SPECIALIST Lyndsey Fagan PLANNER CHIEF LAB URINE ORDERABLES Angeles l Result Performing Organization Address [facility] Co de Phone Number [facility] [place] [address] * (ABNORMAL) Urinalysis, microscopic only (08/06/2024 9:19 AM NETWORK SUPPORT SPECIALIST) Pathologist [facility] WBC, ur 6-10(A) 0 - 5 /HPF RBC, ur 21-50(A) 0 - 2 /HPF [facility] Bacteria, ur Trace(A) [facility] Mucous, ur Present(A) [facility] Urine 08/06/2024 9:19 AM NETWORK SUPPORT SPECIALIST 08/06/2024 9:19 AM NETWORK SUPPORT SPECIALIST Lyndsey Fagan PLANNER CHIEF LAB URINE ORDERABLES Angeles l Result Performing Organization Address [facility] [place] [address] * (ABNORMAL) eGFR (08/06/2024 7:43 AM NETWORK SUPPORT SPECIALIST) Pathologist [facility] eGFR 31(L) >=60 mL/min/1. 73 m2 Comment: [...] last reviewed 2021. Blood 08/06/2024 7:43 AM NETWORK SUPPORT SPECIALIST 08/06/2024 7:52 AM NETWORK SUPPORT SPECIALIST Hermelindo Butler MD LAB BLOOD ORDER ELANA Final Result [facility] Department [place] [address] * (ABNORMAL) Differential, auto (08/06/2024 7:43 AM NETWORK SUPPORT SPECIALIST) [facility] Neutrophil abs 5.4 1.5 - 6.5 K/cumm Comment:Testing performed by : [facility], [address] [place] [phone] Lymphocyte abs 0.8 0.8 - 3.3 K/cumm [facility] Comment:Testing performed by : [facility], [address] [place] [phone] Monocyte abs 0.5 0.2 - 0.8 K/cumm [facility] Comment:Testing performed by : [facility], [address] [place] [phone] Eosinophil abs 0.7(H) 0.0 - 0.5 K/cumm [facility] Comment:Testing performed by : [facility], [address] [place] [phone] Basophil abs 0.0 0.0 - 0.1 K/cumm [facility] Comment:Testing performed by : [facility], [address] [place], [place] [id number] Neutrophil pct 72.4 % [facility] Comment: Interpretive Data Percent cell count reference ranges are not reported, since discordance with absolute values may lead to misinterpretation of CBC data. Current Interpretive Data was last revised on 2017. Testing performed by: [facility], [address] [place], [place] [id number] Lymphocyte pct 10.4 % [facility] Comment: Interpretive Data Percent cell count reference ranges are not reported, since discordance with absolute values may lead to misinterpretation of CBC data. Current Interpretive Data was last revised on 2017. Testing performed by: [facility], [address] [place], [place] [id number] Monocyte pct 7.3 % [facility] Comment: Interpretive Data Percent cell count reference ranges are not reported, since discordance with absolute values may lead to misinterpretation of CBC data. Current Interpretive Data was last revised on 2017. Testing performed by: [facility], [address] [place] [phone] Eosinophil pct 9.4 % [facility] Comment: Interpretive Data Percent cell count reference ranges are not reported, since discordance with absolute values may lead to misinterpretation of CBC data. Current Interpretive Data was last revised on 2017. Testing performed by: [facility], [address] [place] [phone] Basophil pct 0.5 % [facility] Comment: Interpretive Data Percent cell count reference ranges are not reported, since discordance with absolute values may lead to misinterpretation of CBC data. Current Interpretive Data was last revised on 2017. Testing performed by: [facility], [address] [place] [phone] Blood 08/06/2024 7:43 AM NETWORK SUPPORT SPECIALIST 08/06/2024 7:51 AM NETWORK SUPPORT SPECIALIST Hermelindo Butler MD LAB BLOOD ORDER ELANA Final Result [facility] Department [place] [address] * (ABNORMAL) CBC with auto differential (08/06/2024 7:43 AM NETWORK SUPPORT SPECIALIST) WBC 7.5 3.8 - 9.9 K/cumm Comment:Testing performed by : [facility], [address] [place] [address] Hgb 13.7 13.0 - 17.5 g/dL [facility] Comment:Testing performed by : [facility], [address] [place] [address] Hct 40.6 38.9 - 50.3 % [facility] Comment:Testing performed by : [facility], [address] [place] [address] Plt 169 150 - 400 K/cumm [facility] Comment:Testing performed by : [facility], [address] [place] [address] MPV 7.5 6.8 - 10.4 fL [facility] Comment:Testing performed by : [facility], [address] [place] [address] RBC 4.37 4.30 - 5.80 M/cumm [facility] Comment:Testing performed by : [facility], [address] [place] [address] MCV 92.7 81.3 - 96.4 fL [facility] Comment:Testing performed by : [facility], [address] [place] [address] MCH 31.3 27.1 - 33.3 pg [facility] Comment:Testing performed by : [facility], [address] [place], [place] [phone] MCHC 33.8 32.3 - 35.7 g/dL [facility] Comment:Testing performed by : [facility], [address] [place], [place] [phone] RDW CV 16.5(H) 11.1 - 14.9 % [facility] Comment:Testing performed by : [facility], [address] [place], [place] [phone] NRBC abs 0.00 0.00 - 0.01 K/cumm [facility] Comment:Testing performed by : [facility], [address] [place], [place] [phone] Blood 08/06/2024 7:43 AM NETWORK SUPPORT SPECIALIST 08/06/2024 7:51 AM NETWORK SUPPORT SPECIALIST Hermelindo Butler MD LAB BLOOD ORDER ELANA Final Result Performing Organization Address [facility] de Phone Number [facility] Department [place] [address] * (ABNORMAL) PSA diagnostic (08/06/2024 7:43 AM NETWORK SUPPORT SPECIALIST) PSA-Total 6.28(H) <=6.20 ng/mL Comment: Interpretive Data [...] last revised 21. Blood 08/06/2024 7:43 AM NETWORK SUPPORT SPECIALIST 08/06/2024 7:52 AM NETWORK SUPPORT SPECIALIST Hermelindo Butler MD LAB BLOOD ORDER ELANA Final Result Performing Organization Address [facility] Co de Phone Number [facility] Department [place] [address] * Lactate dehydrogenase (LD) (08/06/2024 7:43 AM NETWORK SUPPORT SPECIALIST) Lactate dehydrogenase (LDH) 161 100 - 250 Units/L Blood 08/06/2024 7:43 AM NETWORK SUPPORT SPECIALIST 08/06/2024 7:52 AM NETWORK SUPPORT SPECIALIST Hermelindo Butler MD LAB BLOOD ORDER ELANA Final Result [facility] Department [place] [address] * (ABNORMAL) Lipid panel (08/06/2024 7:43 AM NETWORK SUPPORT SPECIALIST) Cholesterol 128 30 - 199 mg/dL Comment: [...] revised on 2018. Triglycerides 149 <=149 mg/dL [facility] Comment: Interpretive Data Ages [...] revised on 2018. HDL 38(L) >=40 mg/dL [facility] Comment: Interpretive Data Ages [...] 2018. LDL, calculated 64 <=129 mg/dL [facility] Comment: Interpretive Data Ages < or [...] revised on 2024. Non-HDL Cholesterol 90 mg/dL [facility] Comment: Interpretive Data Ages [...] last revised on 2018. Chol/HDL ratio 3 [facility] Blood 08/06/2024 7:43 AM NETWORK SUPPORT SPECIALIST 08/06/2024 7:52 AM NETWORK SUPPORT SPECIALIST Hermelindo Butler MD LAB BLOOD ORDER ELANA Final Result [facility] Department [place] [address] * (ABNORMAL) Comprehensive metabolic panel (08/06/2024 7:43 AM NETWORK SUPPORT SPECIALIST) Sodium 145 135 - 145 mmol/L Potassium, pl 4.2 3.3 - 4.9 mmol/L [facility] Chloride 108 97 - 110 mmol/L [facility] CO2 30 22 - 32 mmol/L [facility] Anion gap 7 2 - 15 mmol/L [facility] BUN 51(H) 6 - 25 mg/dL [facility] Creatinine 2.21(H) 0.80 - 1.30 mg/dL [facility] Glucose 113 70 - 199 mg/dL [facility] Comment: Interpretive Data Fasting glucose [...] 2022. Calcium 9.2 8.5 - 10.3 mg/dL [facility] Bilirubin, total 0.5 0.1 - 1.2 mg/dL [facility] [facility] Protein, pl 6.2(L) 6.5 - 8.5 g/dL [facility] Albumin 4.1 3.5 - 5.0 g/dL [facility] Alk phos 61 40 - 130 Units/L [facility] ALT 15 7 - 55 Units/L [facility] AST 16 10 - 50 Units/L [facility] Blood 08/06/2024 7:43 AM NETWORK SUPPORT SPECIALIST 08/06/2024 7:52 AM NETWORK SUPPORT SPECIALIST us Hermelindo Butler MD LAB BLOOD ORDER ELANA Final Result Performing Organization Address [facility] de Phone Number [facility] [employer] [place] [address] * aPTT (08/03/2024 9:21 AM NETWORK SUPPORT SPECIALIST) aPTT 31 28 - 38 sec Comment: Interpretive Data Heparin therapeutic range: 66.0 - 100.0 seconds. Range based on correlation with therapeutic heparin activity range of 0.3 - 0.7 Units/mL. Current interpretive data was last revised on 2023. Blood 08/03/2024 9:21 AM NETWORK SUPPORT SPECIALIST 08/03/2024 9:47 AM NETWORK SUPPORT SPECIALIST Hermelindo Butler MD LAB BLOOD ORDER ELANA Final Result Performing Organization Address [facility] [place] [address] * Protime-INR (08/03/2024 9:21 AM NETWORK SUPPORT SPECIALIST) PT 11.5 9.7 - 13.0 sec INR 1.06 0.90 - 1.20 [facility] Comment: Interpretive data Oral anticoagulant therapeutic ranges: Venous thromboembolism prophylaxis or treatment: 2.0-3.0 CARDIOLOGY Standard range: 2.0-3.0 High-intensity range: 2.5-3.5 Refer to indication-specific guidelines for appropriate target ranges for prosthetic heart valve replacement. Current interpretive data was last revised on 2019. Blood 08/03/2024 9:21 AM NETWORK SUPPORT SPECIALIST 08/03/2024 9:47 AM NETWORK SUPPORT SPECIALIST us Hermelindo Butler MD LAB BLOOD ORDER ELANA Final Result Performing Organization Address City/[facility] Co de Phone Number [facility] [place] [address] * Immunotyping, serum with interpretation (08/03/2024 7:40 AM NETWORK SUPPORT SPECIALIST) Pathologist [facility] Immunosubtraction Please see comment Comment: NO PARAPROTEIN DETECTED Reviewed and signed by Hermelindo Mcnulty MD 08/04/2024 Blood 08/03/2024 7:40 AM NETWORK SUPPORT SPECIALIST 08/03/2024 8:24 AM NETWORK SUPPORT SPECIALIST Hermelindo Butler MD LAB BLOOD ORDER ELANA Final Result Performing Organization Address [facility] Co de Phone Number CERNER BJ [facility] Department [place] [address] * (ABNORMAL) eGFR (08/03/2024 7:40 AM NETWORK SUPPORT SPECIALIST) [facility] eGFR 37(L) >=60 mL/min/1. 73 m2 [...] last reviewed 2021. Blood 08/03/2024 7:40 AM NETWORK SUPPORT SPECIALIST 08/03/2024 7:49 AM NETWORK SUPPORT SPECIALIST us Hermelindo Butler MD LAB BLOOD ORDER ELANA Final Result [facility] Department [place] [address] * (ABNORMAL) Differential, auto (08/03/2024 7:40 AM NETWORK SUPPORT SPECIALIST) Neutrophil abs 5.6 1.5 - 6.5 K/cumm Comment:Testing performed by : [facility], [address] [place] [phone] Lymphocyte abs 0.9 0.8 - 3.3 K/cumm CERNER BJ Comment:Testing performed by : [facility], [address] [place], [place] [phone] Monocyte abs 0.6 0.2 - 0.8 K/cumm CERNER BJ Comment:Testing performed by : [facility], [address] [place], [place] [phone] Eosinophil abs 0.8(H) 0.0 - 0.5 K/cumm CERFRANK BJ Comment:Testing performed by : [facility], [address] [place] [phone] Basophil abs 0.0 0.0 - 0.1 K/cumm CERNER BJ Comment:Testing performed by : [facility], [address] [place] [phone] Neutrophil pct 70.4 % CERNER BJ Comment: Interpretive Data Percent cell count reference ranges are not reported, since discordance with absolute values may lead to misinterpretation of CBC data. Current Interpretive Data was last revised on 2017. Testing performed by: [facility], [address] [place] [phone] Lymphocyte pct 11.2 % CERNER BJ Comment: Interpretive Data Percent cell count reference ranges are not reported, since discordance with absolute values may lead to misinterpretation of CBC data. Current Interpretive Data was last revised on 2017. Testing performed by: [facility], [address] [place] [phone] Monocyte pct 7.7 % [facility] Comment: Interpretive Data Percent cell count reference ranges are not reported, since discordance with absolute values may lead to misinterpretation of CBC data. Current Interpretive Data was last revised on 2017. Testing performed by: [facility], [address] [place] [phone] Eosinophil pct 10.1 % [facility] Comment: Interpretive Data Percent cell count reference ranges are not reported, since discordance with absolute values may lead to misinterpretation of CBC data. Current Interpretive Data was last revised on 2017. Testing performed by: [facility], [address] [place] [phone] Basophil pct 0.6 % [facility] Comment: Interpretive Data Percent cell count reference ranges are not reported, since discordance with absolute values may lead to misinterpretation of CBC data. Current Interpretive Data was last revised on 2017. Testing performed by: [facility], [address] [place] [phone] Blood 08/03/2024 7:40 AM NETWORK SUPPORT SPECIALIST 08/03/2024 7:47 AM NETWORK SUPPORT SPECIALIST Hermelindo Butler MD LAB BLOOD ORDER ELANA Final Result [facility] Department [place] [address] * (ABNORMAL) Immunoglobulin free light chains (08/03/2024 7:40 AM NETWORK SUPPORT SPECIALIST) [employer]/Lambda ratio [facility] See Comment 0.26 - 1.65 Comment: Unable to calculate exact result. Interpretive Data The Binding Site FreeLite assay procedure was used. Results from different manufacturers or methods may not be comparable. Serial testing should be performed using the same methods and instrumentation. Current Interpretive Data was last revised on 2023. [place] free light chain [facility] <0.06(L) 0.33 - 1.94 mg/dL MT [...] revised on 2023. Blood 08/03/2024 7:40 AM NETWORK SUPPORT SPECIALIST 08/03/2024 8:24 AM NETWORK SUPPORT SPECIALIST Hermelindo Butler MD LAB BLOOD ORDER ELANA Final Result [facility] Department [place] [address] * (ABNORMAL) CBC with auto differential (08/03/2024 7:40 AM NETWORK SUPPORT SPECIALIST) WBC 7.9 3.8 - 9.9 K/cumm Comment:Testing performed by : [facility], [address] [place] [address] Hgb 13.7 13.0 - 17.5 g/dL MT BJ Comment:Testing performed by : [facility], [address] [place] [address] Hct 41.5 38.9 - 50.3 % CERFRANK BJ Comment:Testing performed by : [facility], [address] [place] [address] Plt 163 150 - 400 K/cumm CERFRANK BJ Comment:Testing performed by : [facility], [address] [place] [address] MPV 7.8 6.8 - 10.4 fL CERFRANK BJ Comment:Testing performed by : [facility], [address] [place] [address] RBC 4.50 4.30 - 5.80 M/cumm CERFRANK BJ Comment:Testing performed by : [facility], [address] [place], [place] [phone] MCV 92.1 81.3 - 96.4 fL [facility] Comment:Testing performed by : [facility], [address] [place], [place] [phone] MCH 30.4 27.1 - 33.3 pg [facility] Comment:Testing performed by : [facility], [address] [place], [place] [phone] MCHC 33.0 32.3 - 35.7 g/dL [facility] Comment:Testing performed by : [facility], [address] [place], [place] [phone] RDW CV 16.6(H) 11.1 - 14.9 % [facility] Comment:Testing performed by : [facility], [address] [place], [place] [phone] NRBC abs 0.00 0.00 - 0.01 K/cumm [facility] Comment:Testing performed by : [facility], [address] [place], [place] [phone] Blood 08/03/2024 7:40 AM NETWORK SUPPORT SPECIALIST 08/03/2024 7:47 AM NETWORK SUPPORT SPECIALIST Hermelindo Butler MD LAB BLOOD ORDER ELANA Final Result [facility] Department [place] [address] * (ABNORMAL) Protein electrophoresis with reflex, serum with interpretation (08/03/2024 7:40 AM NETWORK SUPPORT SPECIALIST) Protein, sr 5.7(L) 6.2 - 8.2 g/dL Albumin 3.8 3.2 - 5.0 g/dL [facility] Alpha-1 globulin 0.3 0.2 - 0.4 g/dL [facility] Alpha-2 globulin 0.6 0.5 - 1.0 g/dL [facility] Beta-1 globulin 0.4 0.3 - 0.6 g/dL [facility] Beta-2 globulin 0.3 0.2 - 0.6 g/dL [facility] Gamma globulin 0.2(L) 0.5 - 1.7 g/dL [facility] SPEP interp Please see comment [facility] Comment: No apparent monoclonal peak Decreased gamma globulins Electrophoretic pattern appears similar to previous sample 07/14/24 *See immunotyping for further information Reviewed and signed by Hermelindo Mcnulty MD 08/04/2024 Blood 08/03/2024 7:40 AM NETWORK SUPPORT SPECIALIST 08/03/2024 8:24 AM NETWORK SUPPORT SPECIALIST Hermelindo Butler MD LAB BLOOD ORDER ELANA Final Result Performing Organization Address City/[facility] Co de Phone Number [facility] Department [place] [address] * Magnesium (08/03/2024 7:40 AM NETWORK SUPPORT SPECIALIST) Pathologist [facility] Magnesium 2.2 1.4 - 2.5 mg/dL Blood 08/03/2024 7:40 AM NETWORK SUPPORT SPECIALIST 08/03/2024 9:36 AM NETWORK SUPPORT SPECIALIST Hermelindo Butler MD LAB BLOOD ORDER ELANA Final Result Performing Organization Address City/[facility] Co de Phone Number [facility] Department [place] [address] * Lactate dehydrogenase (LD) (08/03/2024 7:40 AM NETWORK SUPPORT SPECIALIST) Lactate dehydrogenase (LDH) 172 100 - 250 Units/L Blood 08/03/2024 7:40 AM NETWORK SUPPORT SPECIALIST 08/03/2024 7:49 AM NETWORK SUPPORT SPECIALIST Hermelindo Butler MD LAB BLOOD ORDER ELANA Final Result Performing Organization Address City/[facility] Co de Phone Number [facility] [place] [address] * (ABNORMAL) Hemoglobin A1c (08/03/2024 7:40 AM NETWORK SUPPORT SPECIALIST) [facility] Hgb A1C 5.8(H) 4.0 - 5.6 % Estimated Average Glucose 120 mg/dL [facility] Comment: The ADA recommends reporting an estimated Average Glucose (eAG) with all Hemoglobin A1c results using the equation derived from a study of 507 normal and diabetic adults. Minority populations were underrepresented and children were not included. (Diabetes Care 2020; 43(S1): S66-S76). The eAG is not equivalent to a fasting glucose. Blood 08/03/2024 7:40 AM NETWORK SUPPORT SPECIALIST 08/03/2024 7:49 AM NETWORK SUPPORT SPECIALIST Lyndsey Fagan NP LAB BLOOD ORDERABLES Angeles l Result Performing Organization Address City/[facility]/ZIP Co de Phone Number [facility] [place] [address] * Gamma GT (08/03/2024 7:40 AM NETWORK SUPPORT SPECIALIST) [facility] GGT 23 10 - 50 Units/L Blood 08/03/2024 7:40 AM NETWORK SUPPORT SPECIALIST 08/03/2024 9:36 AM NETWORK SUPPORT SPECIALIST Hermelindo Butler MD LAB BLOOD ORDER ELANA Final Result [facility] Department [place] [address] * (ABNORMAL) IgA (08/03/2024 7:40 AM NETWORK SUPPORT SPECIALIST) [facility] Immunoglobulin A <50(L) 70 - 400 mg/dL Blood 08/03/2024 7:40 AM NETWORK SUPPORT SPECIALIST 08/03/2024 8:09 AM NETWORK SUPPORT SPECIALIST Hermelindo Butler MD LAB BLOOD ORDER ELANA Final Result [facility] [place] [address] * (ABNORMAL) IgM (08/03/2024 7:40 AM NETWORK SUPPORT SPECIALIST) [facility] Immunoglobulin M <25(L) 40 - 230 mg/dL Blood 08/03/2024 7:40 AM NETWORK SUPPORT SPECIALIST 08/03/2024 8:09 AM NETWORK SUPPORT SPECIALIST Hermelindo Butler MD LAB BLOOD ORDER ELANA Final Result Performing Organization Address [facility] Co de Phone Number [facility] Department [place] [address] * (ABNORMAL) IgG (08/03/2024 7:40 AM NETWORK SUPPORT SPECIALIST) [facility] Immunoglobulin G <300(L) 700 - 1,600 mg/dL Blood 08/03/2024 7:40 AM NETWORK SUPPORT SPECIALIST 08/03/2024 8:09 AM NETWORK SUPPORT SPECIALIST Hermelindo Butler MD LAB BLOOD ORDER ELANA Final Result Performing Organization Address City/[facility] Co de Phone Number [facility] [place] [address] * (ABNORMAL) Comprehensive metabolic panel (08/03/2024 7:40 AM NETWORK SUPPORT SPECIALIST) [facility] Sodium 141 135 - 145 mmol/L Potassium, pl 4.0 3.3 - 4.9 mmol/L [facility] Chloride 104 97 - 110 mmol/L [facility] CO2 30 22 - 32 mmol/L [facility] Anion gap 7 2 - 15 mmol/L [facility] BUN 47(H) 6 - 25 mg/dL [facility] Creatinine 1.92(H) 0.80 - 1.30 mg/dL [facility] Glucose 116 70 - 199 mg/dL [facility] Comment: Interpretive Data Fasting glucose [...] 2022. Calcium 9.2 8.5 - 10.3 mg/dL [facility] Bilirubin, total 0.7 0.1 - 1.2 mg/dL [facility] Protein, pl 6.2(L) 6.5 - 8.5 g/dL [facility] Albumin 3.9 3.5 - 5.0 g/dL [facility] Alk phos 63 40 - 130 Units/L [facility] ALT 15 7 - 55 Units/L [facility] AST 17 10 - 50 Units/L [facility] Blood 08/03/2024 7:40 AM NETWORK SUPPORT SPECIALIST 08/03/2024 7:49 AM NETWORK SUPPORT SPECIALIST Hermelindo Butler MD LAB BLOOD ORDER ELANA Final Result [facility] Department [place] [address] * (ABNORMAL) Urinalysis reflex to microscopic and culture Urine, clean voided (08/03/2024 7:30 AM NETWORK SUPPORT SPECIALIST) Color, ur Straw Yellow Clarity, ur Clear Clear [facility] Specific gravity, ur 1.012 1.003 - 1.030 [facility] pH, urine 5.5 [facility] Comment: Interpretive Data U rine pH is affected by diet, medications, systemic acid-base disturbances, and renal tubular function. pH may affect urinary stone formation. For example, urine pH below 6.0 may help reduce the tendency for calcium phosphate stones and pH greater than 6.0 may reduce the tendency for uric acid stone formation. Source: [facility] Current Interpretive Data was last revised on 2017 Protein, ur ql Negative Negative [facility] Glucose, ur ql Negative Negative [facility] Ketones, ur Negative Negative [facility] Bilirubin, ur Negative Negative [facility] Blood, ur 2+(A) Negative [facility] Urobilinogen, ur <2.0 <2.0 mg/dL [facility] Nitrite, ur Negative Negative [facility] Leukocyte esterase, ur Negative [facility] UA reflex comment Reflex to microscopic UA will be performed. [facility] Urine, clean voided 08/03/2024 7:30 AM NETWORK SUPPORT SPECIALIST 08/03/2024 7:30 AM NETWORK SUPPORT SPECIALIST Lyndsey Fagan NP LAB MICROBIOLOGY - GENERA L ORDERABLES Final Result Performing Organization Address [facility] Co de Phone Number [facility] of [employer] [place] [address] * (ABNORMAL) Urinalysis, microscopic only (08/03/2024 7:30 AM NETWORK SUPPORT SPECIALIST) WBC, ur 6-10(A) 0 - 5 /HPF RBC, ur 11-20(A) 0 - 2 /HPF [facility] Epithelial cells, squamous, ur 1-5 0 - 5 /HPF [facility] Bacteria, ur Trace(A) [facility] Culture Reflex Comment Reflex conditions for urine culture (WBC >10) not met. [facility] Urine, clean voided 08/03/2024 7:30 AM NETWORK SUPPORT SPECIALIST 08/03/2024 7:30 AM NETWORK SUPPORT SPECIALIST Lyndsey Fagan NP LAB URINE ORDERABLES Angeles l Result Performing Organization Address City/[facility]/ZIP Co de Phone Number [facility] [employer] [place] [address] * Urine culture Urine, clean voided (08/03/2024 7:30 AM NETWORK SUPPORT SPECIALIST) Report Final Report: No growth Urine, clean voided 08/03/2024 7:30 AM NETWORK SUPPORT SPECIALIST 08/03/2024 9:59 AM NETWORK SUPPORT SPECIALIST Narrative [facility] 08/04/2024 11:14 AM NETWORK SUPPORT SPECIALIST Testing performed by [facility] ([phone]) Hermelindo Butler MD LAB MICROBIOLOG Y - GENERAL ORDERABLES Final Result Performing Organization Address City/[facility] Co de Phone Number [facility] Department [place] [address] * Immunotyping, serum with interpretation (07/13/2024 7:40 AM NETWORK SUPPORT SPECIALIST) [facility] Immunosubtraction Please see comment Comment: NO PARAPROTEIN DETECTED Reviewed and signed by Rufino Huff MD, PhD 07/14/2024 Blood 07/13/2024 7:40 AM NETWORK SUPPORT SPECIALIST 07/13/2024 8:42 AM NETWORK SUPPORT SPECIALIST Hermelindo Butler MD LAB BLOOD ORDER ELANA Final Result Performing Organization Address [facility] de Phone Number [facility] Department [place] [address] * (ABNORMAL) eGFR (07/13/2024 7:40 AM NETWORK SUPPORT SPECIALIST) [facility] eGFR 57(L) >=60 mL/min/1. 73 m2 Comment: [...] last reviewed 2021. Blood 07/13/2024 7:40 AM NETWORK SUPPORT SPECIALIST 07/13/2024 7:47 AM NETWORK SUPPORT SPECIALIST Hermelindo Butler MD LAB BLOOD ORDER ELANA Final Result [facility] Department [place] [address] * Differential, auto (07/13/2024 7:40 AM NETWORK SUPPORT SPECIALIST) Neutrophil abs 5.4 1.5 - 6.5 K/cumm Comment:Testing performed by : [facility], [address] [place], [place] [phone] Lymphocyte abs 0.9 0.8 - 3.3 K/cumm CERNER BJ Comment:Testing performed by : [facility], [address] [place], [place] [phone] Monocyte abs 0.5 0.2 - 0.8 K/cumm CERNER BJ Comment:Testing performed by : [facility], [address] [place] [phone] Eosinophil abs 0.5 0.0 - 0.5 K/cumm CERNER BJ Comment:Testing performed by : [facility], [address] [place] [phone] Basophil abs 0.0 0.0 - 0.1 K/cumm CERNER BJ Comment:Testing performed by : [facility], [address] [place] [phone] Neutrophil pct 73.6 % [facility] Comment: Interpretive Data Percent cell count reference ranges are not reported, since discordance with absolute values may lead to misinterpretation of CBC data. Current Interpretive Data was last revised on 2017. Testing performed by: [facility], [address] [place] [phone] Lymphocyte pct 12.0 % [facility]ER[facility] Comment: Interpretive Data Percent cell count reference ranges are not reported, since discordance with absolute values may lead to misinterpretation of CBC data. Current Interpretive Data was last revised on 2017. Testing performed by: [facility], [address] [place] [phone] Monocyte pct 7.4 % [facility] Comment: Interpretive Data Percent cell count reference ranges are not reported, since discordance with absolute values may lead to misinterpretation of CBC data. Current Interpretive Data was last revised on 2017. Testing performed by: [facility], [address] [place] [phone] Eosinophil pct 6.5 % [facility]ERFRANK [facility] Comment: Interpretive Data Percent cell count reference ranges are not reported, since discordance with absolute values may lead to misinterpretation of CBC data. Current Interpretive Data was last revised on 2017. Testing performed by: [facility], [address] [place] [phone] Basophil pct 0.5 % [facility] Comment: Interpretive Data Percent cell count reference ranges are not reported, since discordance with absolute values may lead to misinterpretation of CBC data. Current Interpretive Data was last revised on 2017. Testing performed by: [facility], [address] [place] [phone] Blood 07/13/2024 7:40 AM NETWORK SUPPORT SPECIALIST 07/13/2024 7:46 AM NETWORK SUPPORT SPECIALIST us Hermelindo Butler MD LAB BLOOD ORDER ELANA Final Result [facility] Department [place] [address] * (ABNORMAL) Immunoglobulin free light chains (07/13/2024 7:40 AM NETWORK SUPPORT SPECIALIST) [employer]/Lambda ratio [facility] See Comment 0.26 - 1.65 Comment: Unable to calculate exact result. Interpretive Data The Binding Site FreeLite assay procedure was used. Results from different manufacturers or methods may not be comparable. Serial testing should be performed using the same methods and instrumentation. Current Interpretive Data was last revised on 2023. [employer] free light chain [facility] <0.06(L) 0.33 - 1.94 mg/dL [facility] Comment: Interpretive Data The Binding Site FreeLite [...] revised on 2023. Blood 07/13/2024 7:40 AM NETWORK SUPPORT SPECIALIST 07/13/2024 8:42 AM NETWORK SUPPORT SPECIALIST Hermelindo Butler MD LAB BLOOD ORDER ELANA Final Result [facility] Department [place] [address] * (ABNORMAL) CBC with auto differential (07/13/2024 7:40 AM NETWORK SUPPORT SPECIALIST) WBC 7.4 3.8 - 9.9 K/cumm Comment:Testing performed by : [facility], [address] [place] [phone] Hgb 14.4 13.0 - 17.5 g/dL [facility] Comment:Testing performed by : [facility], [address] [place] [phone] Hct 44.1 38.9 - 50.3 % [facility] Comment:Testing performed by : [facility], [address] [place] [phone] Plt 174 150 - 400 K/cumm CERFRANK [facility] Comment:Testing performed by : [facility], [address] [place] [address] MPV 7.5 6.8 - 10.4 fL [facility] Comment:Testing performed by : [facility], [address] [place] [address] RBC 4.75 4.30 - 5.80 M/cumm [facility] Comment:Testing performed by : [facility], [address] [place] [address] MCV 92.8 81.3 - 96.4 fL [facility] Comment:Testing performed by : [facility], [address] [place], [place] [phone] MCH 30.2 27.1 - 33.3 pg [facility] Comment:Testing performed by : [facility], [address] [place] [address] MCHC 32.6 32.3 - 35.7 g/dL [facility] Comment:Testing performed by : [facility], [address] [place] [address] RDW CV 16.2(H) 11.1 - 14.9 % [facility] Comment:Testing performed by : [facility] Lab, [address] [place] [address] NRBC abs 0.00 0.00 - 0.01 K/cumm [facility] Comment:Testing performed by : [facility], [address] [place] [address] Blood 07/13/2024 7:40 AM NETWORK SUPPORT SPECIALIST 07/13/2024 7:46 AM NETWORK SUPPORT SPECIALIST Hermelindo Butler MD LAB BLOOD ORDER ELANA Final Result [facility] Department [place] [address] * (ABNORMAL) Protein electrophoresis with reflex, serum with interpretation (07/13/2024 7:40 AM NETWORK SUPPORT SPECIALIST) [facility] Protein, sr 5.7(L) 6.2 - 8.2 g/dL Albumin 3.7 3.2 - 5.0 g/dL [facility] Alpha-1 globulin 0.3 0.2 - 0.4 g/dL [facility] Alpha-2 globulin 0.6 0.5 - 1.0 g/dL [facility] Beta-1 globulin 0.4 0.3 - 0.6 g/dL [facility] Beta-2 globulin 0.3 0.2 - 0.6 g/dL [facility] Gamma globulin 0.3(L) 0.5 - 1.7 g/dL [facility] SPEP interp Please see comment [facility] Comment: No apparent monoclonal peak Decreased gamma globulins Electrophoretic pattern appears similar to previous sample 06/23/24 See immunotyping for further information Reviewed and signed by Rufino Huff MD, PhD 07/14/2024 Blood 07/13/2024 7:40 AM NETWORK SUPPORT SPECIALIST 07/13/2024 8:42 AM NETWORK SUPPORT SPECIALIST Hermelindo Butler MD LAB BLOOD ORDER ELANA Final Result Performing Organization Address City/[facility] Co de Phone Number [facility] Department of [employer] [place] [address] * Magnesium (07/13/2024 7:40 AM NETWORK SUPPORT SPECIALIST) [facility] Magnesium 2.2 1.4 - 2.5 mg/dL Blood 07/13/2024 7:40 AM NETWORK SUPPORT SPECIALIST 07/13/2024 7:47 AM NETWORK SUPPORT SPECIALIST Hermelindo Butler MD LAB BLOOD ORDER ELANA Final Result Performing Organization Address City/[facility] Co de Phone Number [facility] Department [place] [address] * Lactate dehydrogenase (LD) (07/13/2024 7:40 AM NETWORK SUPPORT SPECIALIST) [facility] Lactate dehydrogenase (LDH) 152 100 - 250 Units/L Blood 07/13/2024 7:40 AM NETWORK SUPPORT SPECIALIST 07/13/2024 7:47 AM NETWORK SUPPORT SPECIALIST us Hermelindo Butler MD LAB BLOOD ORDER ELANA Final Result Performing Organization Address [facility] de Phone Number [facility] [place] [address] * Gamma GT (07/13/2024 7:40 AM NETWORK SUPPORT SPECIALIST) [facility] GGT 27 10 - 50 Units/L Blood 07/13/2024 7:40 AM NETWORK SUPPORT SPECIALIST 07/13/2024 7:47 AM NETWORK SUPPORT SPECIALIST us Hermelindo Butler MD LAB BLOOD ORDER ELANA Final Result Performing Organization Address [facility] Phone Number [facility] [employer] [place] [address] * (ABNORMAL) IgA (07/13/2024 7:40 AM NETWORK SUPPORT SPECIALIST) [facility] Immunoglobulin A <50(L) 70 - 400 mg/dL Blood 07/13/2024 7:40 AM NETWORK SUPPORT SPECIALIST 07/13/2024 7:59 AM NETWORK SUPPORT SPECIALIST us Hermelindo Butler MD LAB BLOOD ORDER ELANA Final Result Performing Organization Address [facility] de Phone Number [facility] [employer] [place] [address] * (ABNORMAL) IgM (07/13/2024 7:40 AM NETWORK SUPPORT SPECIALIST) Pathologist [facility] Immunoglobulin M <25(L) 40 - 230 mg/dL Blood 07/13/2024 7:40 AM NETWORK SUPPORT SPECIALIST 07/13/2024 7:59 AM NETWORK SUPPORT SPECIALIST us Hermelindo Butler MD LAB BLOOD ORDER ELANA Final Result [facility] Department [place] [address] * (ABNORMAL) IgG (07/13/2024 7:40 AM NETWORK SUPPORT SPECIALIST) [facility] Immunoglobulin G <300(L) 700 - 1,600 mg/dL Blood 07/13/2024 7:40 AM NETWORK SUPPORT SPECIALIST 07/13/2024 7:59 AM NETWORK SUPPORT SPECIALIST Hermelindo Butler MD LAB BLOOD ORDER ELANA Final Result Performing Organization Address [facility] Co de Phone Number [facility] Department [place] [address] * (ABNORMAL) Comprehensive metabolic panel (07/13/2024 7:40 AM NETWORK SUPPORT SPECIALIST) [facility] Sodium 144 135 - 145 mmol/L Potassium, pl 4.2 3.3 - 4.9 mmol/L [facility] Chloride 107 97 - 110 mmol/L [facility] CO2 33(H) 22 - 32 mmol/L [facility] Anion gap 4 2 - 15 mmol/L [facility] BUN 29(H) 6 - 25 mg/dL [facility] Creatinine 1.34(H) 0.80 - 1.30 mg/dL [facility] Glucose 125 70 - 199 mg/dL [facility] Comment: Interpretive Data Fasting glucose [...] Calcium 9.4 8.5 - 10.3 mg/dL [facility] Bilirubin, total 0.7 0.1 - 1.2 mg/dL [facility] Protein, pl 6.2(L) 6.5 - 8.5 g/dL [facility] Albumin 4.1 3.5 - 5.0 g/dL [facility] Alk phos 65 40 - 130 Units/L [facility] ALT 18 7 - 55 Units/L [facility] AST 16 10 - 50 Units/L [facility] Blood 07/13/2024 7:40 AM NETWORK SUPPORT SPECIALIST 07/13/2024 7:47 AM NETWORK SUPPORT SPECIALIST Hermelindo Butler MD LAB BLOOD ORDER ELANA Final Result Performing Organization Address [facility] de Phone Number [facility] of [employer] [place] [address] * aPTT (07/13/2024 7:24 AM NETWORK SUPPORT SPECIALIST) Pathologist [facility] aPTT 28 28 - 38 sec Comment: Interpretive Data Heparin therapeutic range: 66.0 - 100.0 seconds. Range based on correlation with therapeutic heparin activity range of 0.3 - 0.7 Units/mL. Current interpretive data was last revised on 2023. Blood 07/13/2024 7:24 AM NETWORK SUPPORT SPECIALIST 07/13/2024 7:59 AM NETWORK SUPPORT SPECIALIST Hermelindo Butler MD LAB BLOOD ORDER ELANA Final Result Performing Organization Address City/[facility] Co de Phone Number [facility] of [employer] [place] [address] * Protime-INR (07/13/2024 7:24 AM NETWORK SUPPORT SPECIALIST) Pathologist [facility] PT 11.5 9.7 - 13.0 sec INR 1.06 0.90 - 1.20 [facility] Comment: Interpretive data Oral anticoagulant therapeutic ranges: Venous thromboembolism prophylaxis or treatment: 2.0-3.0 CARDIOLOGY Standard range: 2.0-3.0 High-intensity range: 2.5-3.5 Refer to indication-specific guidelines for appropriate target ranges for prosthetic heart valve replacement. Current interpretive data was last revised on 2019. Blood 07/13/2024 7:24 AM NETWORK SUPPORT SPECIALIST 07/13/2024 7:59 AM NETWORK SUPPORT SPECIALIST Hermelindo Butler MD LAB BLOOD ORDER ELANA Final Result Performing Organization Address City/[facility] Co de Phone Number [facility] Department [place] [address] * Immunotyping, serum (06/22/2024 7:20 AM NETWORK SUPPORT SPECIALIST) Immunosubtraction Please see comment Comment: NO PARAPROTEIN DETECTED Reviewed and signed by Fernando Nunez MD, PhD 06/23/2024 Blood 06/22/2024 7:20 AM NETWORK SUPPORT SPECIALIST 06/22/2024 10:03 AM NETWORK SUPPORT SPECIALIST Hermelindo Butler MD LAB BLOOD ORDER ELANA Final Result Performing Organization Address [facility] de Phone Number [facility] Department [facility] [employer] [place] [address] * eGFR (06/22/2024 7:20 AM NETWORK SUPPORT SPECIALIST) eGFR 66 >=60 mL/min/1. 73 m2 Comment: [...] last reviewed 2021. Blood 06/22/2024 7:20 AM NETWORK SUPPORT SPECIALIST 06/22/2024 8:12 AM NETWORK SUPPORT SPECIALIST Hermelindo Butler MD LAB BLOOD ORDER ELANA Final Result [facility] Department [place] [address] * Differential, auto (06/22/2024 7:20 AM NETWORK SUPPORT SPECIALIST) Neutrophil abs 5.4 1.5 - 6.5 K/cumm Comment:Testing performed by : [facility], [address] [place], [place] [phone] Lymphocyte abs 0.9 0.8 - 3.3 K/cumm [facility] Comment:Testing performed by : [facility], [address] [place] [phone] Monocyte abs 0.5 0.2 - 0.8 K/cumm [facility] Comment:Testing performed by : [facility], [address] [place] [phone] Eosinophil abs 0.2 0.0 - 0.5 K/cumm [facility] Comment:Testing performed by : [facility], [address] [place] [phone] Basophil abs 0.0 0.0 - 0.1 K/cumm [facility] Comment:Testing performed by : [facility], [address] [place] [address] Neutrophil pct 75.7 % [facility] Comment: Interpretive Data Percent cell count reference ranges are not reported, since discordance with absolute values may lead to misinterpretation of CBC data. Current Interpretive Data was last revised on 2017. Testing performed by: [facility], [address] [place] [phone] Lymphocyte pct 13.1 % [facility] Comment: Interpretive Data Percent cell count reference ranges are not reported, since discordance with absolute values may lead to misinterpretation of CBC data. Current Interpretive Data was last revised on 2017. Testing performed by: [facility], [address] [place] [phone] Monocyte pct 7.1 % [facility] Comment: Interpretive Data Percent cell count reference ranges are not reported, since discordance with absolute values may lead to misinterpretation of CBC data. Current Interpretive Data was last revised on 2017. Testing performed by: [facility], [address] [place] [phone] Eosinophil pct 3.5 % [facility] Comment: Interpretive Data Percent cell count reference ranges are not reported, since discordance with absolute values may lead to misinterpretation of CBC data. Current Interpretive Data was last revised on 2017. Testing performed by: [facility], [address] [place] [phone] Basophil pct 0.6 % [facility] Comment: Interpretive Data Percent cell count reference ranges are not reported, since discordance with absolute values may lead to misinterpretation of CBC data. Current Interpretive Data was last revised on 2017. Testing performed by: [facility], [address] [place] [phone] Blood 06/22/2024 7:20 AM NETWORK SUPPORT SPECIALIST 06/22/2024 8:08 AM NETWORK SUPPORT SPECIALIST us Hermelindo Butler MD LAB BLOOD ORDER ELANA Final Result [facility] Department [place] [address] * (ABNORMAL) Immunoglobulin free light chains (06/22/2024 7:20 AM NETWORK SUPPORT SPECIALIST) [employer]/Lambda ratio [facility] See Comment 0.26 - 1.65 Comment: Unable to calculate exact result. Interpretive Data The Binding Site FreeLite assay procedure was used. Results from different manufacturers or methods may not be comparable. Serial testing should be performed using the same methods and instrumentation. Current Interpretive Data was last revised on 2023. [place] free light chain [facility] <0.06(L) 0.33 - [...] revised on 2023. Blood 06/22/2024 7:20 AM NETWORK SUPPORT SPECIALIST 06/22/2024 9:53 AM NETWORK SUPPORT SPECIALIST us Hermelindo Butler MD LAB BLOOD ORDER ELANA Final Result [facility] Department [place] [address] * (ABNORMAL) CBC with auto differential (06/22/2024 7:20 AM NETWORK SUPPORT SPECIALIST) WBC 7.1 3.8 - 9.9 K/cumm Comment:Testing performed by : [facility], [address] [place] [phone] Hgb 14.6 13.0 - 17.5 g/dL [facility] Comment:Testing performed by : [facility], [address] [place] [phone] Hct 45.6 38.9 - 50.3 % [facility] Comment:Testing performed by : [facility], [address] [place] [phone] Plt 196 150 - 400 K/cumm [facility] Comment:Testing performed by : [facility], [address] [place] [address] MPV 8.3 6.8 - 10.4 fL [facility] Comment:Testing performed by : [facility], [address] [place] [address] RBC 4.88 4.30 - 5.80 M/cumm [facility] Comment:Testing performed by : [facility], [address] [place] [address] MCV 93.5 81.3 - 96.4 fL [facility] Comment:Testing performed by : [facility], [address] [place], [place] [phone] MCH 29.9 27.1 - 33.3 pg [facility] Comment:Testing performed by : [facility], [address] [place] [address] MCHC 31.9(L) 32.3 - 35.7 g/dL [facility] Comment:Testing performed by : [facility], [address] [place] [address] RDW CV 16.0(H) 11.1 - 14.9 % [facility] Comment:Testing performed by : [facility], [address] [place] [address] NRBC abs 0.20(H) 0.00 - 0.01 K/cumm [facility] Comment:Testing performed by : [facility], [address] [place] [address] Blood 06/22/2024 7:20 AM NETWORK SUPPORT SPECIALIST 06/22/2024 8:08 AM NETWORK SUPPORT SPECIALIST Hermelindo Butler MD LAB BLOOD ORDER ELANA Final Result [facility] Department [place] [address] * aPTT (06/22/2024 7:20 AM NETWORK SUPPORT SPECIALIST) aPTT 29 28 - 38 sec Comment: Interpretive Data Heparin therapeutic range: 66.0 - 100.0 seconds. Range based on correlation with therapeutic heparin activity range of 0.3 - 0.7 Units/mL. Current interpretive data was last revised on 2023. Blood 06/22/2024 7:20 AM NETWORK SUPPORT SPECIALIST 06/22/2024 9:50 AM NETWORK SUPPORT SPECIALIST Hermelindo Butler MD LAB BLOOD ORDER ELANA Final Result Performing Organization Address [facility] de Phone Number [facility] [employer] [place] [address] * Protime-INR (06/22/2024 7:20 AM NETWORK SUPPORT SPECIALIST) [facility] PT 10.9 9.7 - 13.0 sec INR 1.01 0.90 - 1.20 [facility] Comment: Interpretive data Oral anticoagulant therapeutic ranges: Venous thromboembolism prophylaxis or treatment: 2.0-3.0 CARDIOLOGY Standard range: 2.0-3.0 High-intensity range: 2.5-3.5 Refer to indication-specific guidelines for appropriate target ranges for prosthetic heart valve replacement. Current interpretive data was last revised on 2019. Blood 06/22/2024 7:20 AM NETWORK SUPPORT SPECIALIST 06/22/2024 9:50 AM NETWORK SUPPORT SPECIALIST Hermelindo Butler MD LAB BLOOD ORDER ELANA Final Result Performing Organization Address [facility] de Phone Number [facility] [employer] [place] [address] * (ABNORMAL) Protein electrophoresis with reflex, serum (06/22/2024 7:20 AM NETWORK SUPPORT SPECIALIST) Pathologist [facility] Protein, sr 5.9(L) 6.2 - 8.2 g/dL Albumin 3.7 3.2 - 5.0 g/dL [facility] Alpha-1 globulin 0.3 0.2 - 0.4 g/dL [facility] Alpha-2 globulin 0.7 0.5 - 1.0 g/dL [facility] Beta-1 globulin 0.5 0.3 - 0.6 g/dL [facility] Beta-2 globulin 0.3 0.2 - 0.6 g/dL [facility] Gamma globulin 0.4(L) 0.5 - 1.7 g/dL [facility] SPEP interp Please see comment [facility] Comment: No apparent monoclonal peak Decreased gamma globulins Electrophoretic pattern appears similar to previous sample 05-19-24 See immunotyping for further information Reviewed and signed by Fernando Nunez MD, PhD 06/23/2024 Immunotyping See Immunotyping Results [facility] Blood 06/22/2024 7:20 AM NETWORK SUPPORT SPECIALIST 06/22/2024 9:55 AM NETWORK SUPPORT SPECIALIST Hermelindo Butler MD LAB BLOOD ORDER ELANA Final Result Performing Organization Address City/[facility]/ZIP Co de Phone Number [facility] Department [place] [address] * Magnesium (06/22/2024 7:20 AM NETWORK SUPPORT SPECIALIST) Pathologist [facility] Magnesium 2.2 1.4 - 2.5 mg/dL Blood 06/22/2024 7:20 AM NETWORK SUPPORT SPECIALIST 06/22/2024 8:12 AM NETWORK SUPPORT SPECIALIST Hermelindo Butler MD LAB BLOOD ORDER ELANA Final Result [facility] of [employer] [place] [address] * Lactate dehydrogenase (LD) (06/22/2024 7:20 AM NETWORK SUPPORT SPECIALIST) Pathologist [facility] Lactate dehydrogenase (LDH) 157 100 - 250 Units/L Blood 06/22/2024 7:20 AM NETWORK SUPPORT SPECIALIST 06/22/2024 8:12 AM NETWORK SUPPORT SPECIALIST Hermelindo Butler MD LAB BLOOD ORDER ELANA Final Result [facility] [place] [address] * Gamma GT (06/22/2024 7:20 AM NETWORK SUPPORT SPECIALIST) GGT 30 10 - 50 Units/L Blood 06/22/2024 7:20 AM NETWORK SUPPORT SPECIALIST 06/22/2024 8:12 AM NETWORK SUPPORT SPECIALIST Hermelindo Butler MD LAB BLOOD ORDER ELANA Final Result Performing Organization Address [facility] de Phone Number [facility] [place] [address] * (ABNORMAL) IgA (06/22/2024 7:20 AM NETWORK SUPPORT SPECIALIST) Pathologist [facility] Immunoglobulin A <50(L) 70 - 400 mg/dL Blood 06/22/2024 7:20 AM NETWORK SUPPORT SPECIALIST 06/22/2024 9:49 AM NETWORK SUPPORT SPECIALIST Hermelindo Butler MD LAB BLOOD ORDER ELANA Final Result Performing Organization Address City/[facility] Co de Phone Number [facility] Department [place] [address] * (ABNORMAL) IgM (06/22/2024 7:20 AM NETWORK SUPPORT SPECIALIST) Immunoglobulin M <25(L) 40 - 230 mg/dL Blood 06/22/2024 7:20 AM NETWORK SUPPORT SPECIALIST 06/22/2024 9:49 AM NETWORK SUPPORT SPECIALIST us Hermelindo Butler MD LAB BLOOD ORDER ELANA Final Result [facility] [place] [address] * (ABNORMAL) IgG (06/22/2024 7:20 AM NETWORK SUPPORT SPECIALIST) Immunoglobulin G 423(L) 700 - 1,600 mg/dL Blood 06/22/2024 7:20 AM NETWORK SUPPORT SPECIALIST 06/22/2024 9:49 AM NETWORK SUPPORT SPECIALIST Hermelindo Butler MD LAB BLOOD ORDER ELANA Final Result [facility] Department [place] [address] * (ABNORMAL) Comprehensive metabolic panel (06/22/2024 7:20 AM NETWORK SUPPORT SPECIALIST) Pathologist [facility] Sodium 141 135 - 145 mmol/L Potassium, pl 4.1 3.3 - 4.9 mmol/L [facility] Chloride 104 97 - 110 mmol/L [facility] CO2 31 22 - 32 mmol/L [facility] Anion gap 6 2 - 15 mmol/L [facility] BUN 24 6 - 25 mg/dL [facility] Creatinine 1.18 0.80 - 1.30 mg/dL [facility] Glucose 111 70 - 199 mg/dL [facility] Comment: Interpretive Data Fasting glucose [...] 2022. Calcium 9.5 8.5 - 10.3 mg/dL [facility] Bilirubin, total 0.7 0.1 - 1.2 mg/dL [facility] Protein, pl 6.3(L) 6.5 - 8.5 g/dL [facility] Albumin 3.8 3.5 - 5.0 g/dL [facility] Alk phos 63 40 - 130 Units/L [facility] ALT 18 7 - 55 Units/L [facility] AST 20 10 - 50 Units/L [facility] Blood 06/22/2024 7:20 AM NETWORK SUPPORT SPECIALIST 06/22/2024 8:12 AM NETWORK SUPPORT SPECIALIST Hermelindo Butler MD LAB BLOOD ORDER ELANA Final Result Performing Organization Address [facility] Co de Phone Number [facility] Department [place] [address] * Hepatitis C antibody (10/16/2021 9:50 AM CDT) Hep C Ab Nonreactive Nonreactive [facility] Comment:Antibodies to HCV no t detected. Does NOT exclude the possibility of recent exposure to HCV. Blood 10/16/2021 9:50 AM CDT 10/16/2021 11:22 AM CDT Hermelindo dupree MD LAB MICROBIOLOGY - GENERAL ORDERABLES Edited Result - Final Performing Organization Address [facility] de Phone Number [facility] Department [place] [address] from Last 3 Months or Most Recently Relevant to Health Maintenance Insurance MEDICARE T SENIOR SUPPLEMENT MEDICARE [employer] SENIOR SUPPLEMENT MEDICARE [employer] [address] Advance Directives For more information, please contact: [phone] Documents on File Type Date Recorded 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 Expl 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 ADVANCE DIRECTIVE 11/29/2017 11:05 AM FOX R OF TYPING CHECKER ADVANCE DIRECTIVE 11/12/2017 3:59 PM POWER OF TYPING CHECKER * Full Code (Latest Code Status on File) Date Activated Date Inactivated Comments 09/11/2024 1:51 AM 09/15/2024 9:22 PM * Full Code Date Activated Date Inactivated Comments 08/23/2024 11:41 PM 08/26/2024 9:04 PM * Full Code Date Activated Date Inactivated Comments 09/08/2023 8:42 AM 09/09/2023 4:45 AM * Full Code Date Activated Date Inactivated Comments 10/28/2021 5:30 PM 11/01/2021 3:39 PM * Full Code Date Activated Date Inactivated Comments 05/30/2021 2:28 PM 05/31/2021 2:39 PM Care Teams Sweater Designer Relationship Specialty Start Date End Date Jatin Gamble MD [address] [place] [address] PCP - General 10/07/16 Hermelindo Butler MD [address], [place] [id number] [facility] 12/02/17 Roberto Rojo MD [address] [place] [address] Medical Oncologist[facility] and Oncology 12/02/17 Jatin Gamble MD [address] [place] [address] Referring Physician Internal Medicine 12/02/17 Lyndsey Fagan NP [address] [place] [address] Nurse Practitioner Medical Oncology 08/03/20 Erlin Servin MD [address] [place] [address] [place] [address] Consulting Physician Otolaryngology 10/04/22 [place] [address] [place] [address] Consulting Physician Urology 05/28/23 Salvador Norris MD [id number] [place] [address] Consulting Physician Infectious Diseases 09/15/24 Miscellaneous, Not In File 09/15/24
--- OUTSIDE RECORDS SUMMARY | 2024-09-20 14:20 | XMS_ITS | Encounter Summary ---
Author Organization [facility] Address [address] [place] [id number] Care Team Providers Care Panel Laminator Name Role Phone Jatin Gamble MD Primary Care Provider [phone] Hermelindo Butler MD Unavailable Roberto Rojo MD Unavailable Jatin Gamble MD Unavailable [phone] Garry Dukes MD Unavailable [phone] Lyndsey Fagan NP Unavailable Erlin Servin MD Unavailable Julian Valdez MD Unavailable Salvador Norris MD Unavailable Miscellaneous, Not In File Unavailable Unava ilable Encounter Details Date Type Department Care Team (Late st Contact Info) Description 04/29/2022 Community Orders [facility] Link Jatin Gamble MD [address] [place] [address] Elevated prostate specific antigen (PSA) (Primary Dx) Social History Tobacco Use Types Packs/Day Years Used Date Smoking Tobacco: Never Smokeless Tobacco: Never Alcohol Use Standard Drinks/Week Comments No 0 (1 standard drink = 0.6 oz pur e alcohol) Sex and Gender Information Value Date Recorded Sex Assigned at Not on file 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 Gender Identity Not on file Sexual [...] documented as of this encounter Care Teams Panel Laminator Relationship Specialty Start Date End Date Jatin Gamble MD [address] [place] [address] PCP - General 10/07/16 Hermelindo Butler MD [address] [place] [id number] [facility] 12/02/17 Roberto Rojo MD [address] [place] [id number] [facility] Hematology and Oncology 12/02/17 Jatin Gamble MD [address] [place] [address] Referring Physician Internal Medicine 12/02/17 Garry Dukes MD [address] [place], [place] [id number] Referring Physician Urology 12/02/17 05/27/23 Lyndsey Fagan NP [address] [place] [address] Nurse Practitioner Medical Oncology 08/03/20 Erlin Servin MD [address] [place] [address] Consulting Physician Otolaryngology 10/04/22 [place] [address] [place] [address] Consulting Physician Urology 05/28/23 Salvador Norris MD [address] [place] [address] Consulting Physician Infectious Diseases 09/15/24 Miscellaneous, Not In File 09/15/24 documented as of this encounter
--- OUTSIDE RECORDS SUMMARY | 2024-09-20 14:20 | XMS_ITS | Clinical Summary ---
Author Organization [facility] Address [address] [place] [address] Care Team Providers Care Singing Messenger Name Role Phone Jatin Gamble MD Primary Care Provider Hermelindo Butler MD Unavailable Roberto Rojo MD Unavailable Jatin Gamble MD Unavailable [phone] Lyndsey Fagan NP Unavailable Erlin Servin MD Unavailable Julian Valdez MD Unavailable Salvador Norris MD Unavailable Miscellaneous, Not In File Unavailable Unava ilable Allergies Active Allergy Reactions Criticality Noted Date [...] Inpatient Care Coordination Overview Diagnosis [place] Floor [address] Treatment Plan Clinical Trial [id number] Ramesh Reason for Admission JOHN Transplant/IEC Planning [...] Medical Assistants Post-Discharge Follow-Up Living Situation/Distance from [place], [place] (45 min) Caregiver Self, Lab/Transfusion Frequency Phone: Fax: Venous Access & Care implanted vascular device Local Oncologist Contact Phone: Fax: [place]-Discharge Office [place] (H30) [facility] [place] Miscellaneous Notes: Problem Noted Date Diagnosed [...] is a risk of orbital injury and NUCLEAR TECHNICIAN injury which could result in blindness [...] this. Assessment & Plan (07/09/2022 7:42 PM LUNCH COOK): I talked with him quite a bit [...] weeks. Assessment & Plan (05/26/2022 4:16 PM LUNCH COOK): He does have pretty significant sinusitis and [...] day. Assessment & Plan (05/26/2022 4:17 PM LUNCH COOK): It is very possible that his cough could be due to sinusitis also. Hopefully that will continue to improve as we treat. He understands. Immunocompromised 11/13/2021 Multiple myeloma not having achieved remission 0 10/28/2021 Cancer Staging:Clinical stage from 10/16/2021:RISS Stage II(Mggw-4-qiigqrvghxlwo (mg/L): 3.7, Albumin (g/dL): 4.2, ISS: Stage [...] and Dexamethasone in June 2021 Clinical trial [id number] initiated on 10/29/21; C46D1 08/03/24. BMT following [...] he got a TTE on 10/19 at [facility] however unclear why not currently in the system - May need to repeat TTE prior to treatment if results unavailable - Continue OI ppx with acyclovir 400mg BID - Begin trial [id number], a Bispecific Antibody Targeting BCMA treatment - [...] he got a TTE on 10/19 at [place] however unclear why not currently in the system - May need to repeat TTE prior to treatment if results unavailable - Continue OI ppx with acyclovir 400mg BID - Begin trial [id number], a Bispecific Antibody Targeting BCMA treatment - [...] BID Assessment & Plan (05/31/2021 10:51 AM LUNCH COOK): Continue home pepcid, asx Renal mass 05/30/2021 Assessment & Plan (05/31/2021 10:51 AM LUNCH COOK): Admitted for observation after L renal mass [...] 07/17/2023 Assessment & Plan (05/31/2021 10:52 AM LUNCH COOK): Follows with oncology on daratumumab monotherapy -counts [...] blood in urine Follow up pathology from sdjjwnlwh-chx-ataqwlui high-grade papillary urothelial carcinoma (grade 2) --follow [...] blood in urine Follow up pathology from vwjtxmegs-vwy-voxyecjy high-grade papillary urothelial carcinoma (grade 2) --follow [...] supplementation Assessment & Plan (05/31/2021 10:51 AM LUNCH COOK): Stable on home losartan, nebivolol, triamterene-HCTZ Secondary [...] Department Care Team Description 09/15/2024 Orders Only [facility] [address] [place] [address] Preeti Wayne RPh 09/11/2024 1:43 AM CDT - 09/15/2024 5:22 PM CDT Hospital Encounter [facility] [address] [place] [address] Emory Santana MD McMinn, Harrison Charles, MD Madej, Adam Benjamin, DO Oliguria (Primary Dx); Bacteremia Discharge Disposition: Discharge to home, home health skilled care 09/10/2024 Orders Only Urology Yesika Capone PA Elevated prostate specific antigen (PSA) (Primary Dx) 09/07/2024 Orders Only [facility] [address] [place] [phone] Hermelindo Hill MD 09/06/2024 Orders Only [facility] [address] [place] [phone] Lyndsey Fagan NP 08/31/2024 10:00 AM CDT Infusion [facility] - Infusion [address] [place] [address] Floor 6 [place] [address] Multiple myeloma in relapse (HCC) (Primary Dx); Multiple myeloma in remission (HCC) 08/31/2024 9:00 AM CDT Office Visit [facility] [address] [place] [address] 6 [place] [phone] Hermelindo Hill MD Multiple myeloma in relapse (HCC) (Primary Dx); Multiple myeloma in remission (HCC) 08/31/2024 8:45 AM CDT Clinical Support [facility] - Lab Collection [facility] [address] [place] [address] Multiple myeloma in relapse (HCC); Multiple myeloma not having achieved remission (HCC); Multiple myeloma, remission status unspecified (HCC) 08/31/2024 8:15 AM CDT Clinical Support [facility] Oncology Lab [address] [place] [address] 6 [place] [address] Multiple myeloma not having achieved remission (HCC); Multiple myeloma in remission (HCC) 08/30/2024 Orders Only [facility] Scanning, Provider 08/27/2024 Documentation Nephrology Ani Anne LCSW 08/27/2024 Orders Only [facility]plant [address] [facility] 6 [place] [phone] Hermelindo Hill MD Multiple myeloma not having achieved remission (HCC) (Primary Dx); JOHN (acute kidney injury) 08/25/2024 6:50 AM CDT Ancillary Procedure [facility] Vascular Lab IP 1 [facility] [address] [place] [address] 08/23/2024 11:13 PM CDT - 08/26/2024 4:50 PM CDT Hospital Encounter [address] [phone] Hermelindo Hill MD Qapaja, Thabet J.M., MD JOHN (acute kidney injury) (Primary Dx) Discharge Disposition: Discharge to home or self care 08/23/2024 7:10 PM CDT - 08/23/2024 11:59 PM CDT Hospital Encounter [facility] 1 [facility] [place] [address] Discharge Disposition: Discharge to home or self care 08/23/2024 5:24 PM CDT - 08/23/2024 11:59 PM CDT Hospital Encounter [facility] [address] [place] [address] Hermelindo Hill MD Elevated serum creatinine (Primary Dx); Multiple myeloma, remission status unspecified (HCC) Discharge Disposition: Discharge to home or self care 08/23/2024 Orders Only [address] [phone] Hermelindo Hill MD 08/23/2024 Orders Only [facility] [address] [facility] 6 [place] [phone] Hermelindo Hill MD Multiple myeloma, remission status unspecified (HCC) (Primary Dx) 08/20/2024 Orders Only [facility] Scanning, Provider 08/10/2024 Orders Only [facility] Scanning, Provider 08/06/2024 1:45 PM LUNCH COOK Clinical Support [facility] - Lab Collection [address] Floor [address] [place] [address] 08/06/2024 1:00 PM LUNCH COOK - 08/06/2024 11:59 PM LUNCH COOK Hospital Encounter [facility] 1 [facility] [place] [address] Multiple myeloma, remission status unspecified (HCC) Discharge Disposition: Discharge to home or self care 08/06/2024 8:00 AM LUNCH COOK Infusion [facility] Infusion [address] [place] [address] Multiple myeloma not having achieved remission (HCC) (Primary Dx); Hypogammaglobuline hakeem 08/06/2024 7:15 AM LUNCH COOK Clinical Support [facility] - Lab Collection [address] [facility] Floor [address] [place] [address] Multiple myeloma in relapse (HCC) (Primary Dx); Multiple myeloma, remission status unspecified (HCC); JOHN (acute kidney injury) 08/06/2024 Telephone [facility] [address] [phone] Lyndsey Fagan NP 08/06/2024 Orders Only [facility] [address] [place] [phone] Lyndsey Fagan NP Multiple myeloma, remission status unspecified (HCC) (Primary Dx) 08/06/2024 Orders Only [facility] [address] [address] Lyndsey Fagan NP JOHN (acute kidney injury) (Primary Dx) 08/06/2024 Orders Only [facility] [address] [place] [phone] Hermelindo Hill MD Multiple myeloma, remission status unspecified (HCC) (Primary Dx) 08/03/2024 9:30 AM LUNCH COOK Infusion [facility] Infusion [address] [facility] Floor [address] [place] [address] Multiple myeloma in relapse (HCC) (Primary Dx); Multiple myeloma in remission (HCC) 08/03/2024 8:30 AM LUNCH COOK Office Visit [facility] [address] [place] [phone] Hermelindo Hill MD Multiple myeloma, remission status unspecified (HCC) (Primary Dx); Multiple myeloma in remission (HCC); Multiple myeloma in relapse (HCC) 08/03/2024 7:30 AM LUNCH COOK Clinical Support [facility] - Lab Collection [address] [place] [address] 6 [place] [address] Multiple myeloma in remission (HCC); Multiple myeloma, remission status unspecified (HCC); Multiple myeloma in relapse (HCC) 08/03/2024 Orders Only [facility] [address] [place] [phone] Hermelindo Hill MD 08/03/2024 Orders Only [facility] [address] [place] [phone] Hermelindo Hill MD 08/03/2024 Orders Only [facility] [address] [place] [phone] Hermelindo Hill MD 08/02/2024 Telephone [facility] [address] [place] [phone] Lyndsey Fagan NP 07/30/2024 Telephone [facility] [address] [place] [phone] Hermelindo Hill MD 07/27/2024 Telephone [facility] [address] [place] [phone] Hermelindo Hill MD 07/26/2024 Orders Only [facility] [address] [place] [phone] Hermelindo Hill MD 07/26/2024 Orders Only [facility] [address] [place] [phone] Hermelindo Hill MD 07/26/2024 Telephone [facility] [address] [place] [phone] Margaret Kay Curtis Medical Question/Miscellan eous 07/13/2024 10:00 AM LUNCH COOK Infusion [facility] - Infusion [address] [facility] Floor 6 [place] [address] Multiple myeloma in relapse (HCC) (Primary Dx); Multiple myeloma in remission (HCC) 07/13/2024 9:00 AM LUNCH COOK Office Visit [facility] [address] [place] [phone] Hermelindo Hill MD Multiple myeloma, remission status unspecified (HCC) (Primary Dx); Multiple myeloma in remission (HCC); Hypogammaglobuline hakeem 07/13/2024 8:00 AM LUNCH COOK Clinical Support [facility] - Lab Collection [address] [place] [address] 6 [place] [address] Multiple myeloma in remission (HCC); Multiple myeloma in relapse (HCC); Multiple myeloma, remission status unspecified (HCC) 07/13/2024 Telephone [facility] [address] [place] [phone] Fadumo Tobar RN 06/22/2024 8:30 AM LUNCH COOK Infusion [facility] - Infusion [address] [facility] Floor [address] [place] [address] Multiple myeloma, remission status unspecified (HCC) (Primary Dx); Multiple myeloma in remission (HCC); Multiple myeloma in relapse (HCC) 06/22/2024 8:00 AM LUNCH COOK Office Visit [facility] [address] [place] [phone] Hermelindo Hill MD Multiple myeloma in relapse (HCC) (Primary Dx); Multiple myeloma, remission status unspecified (HCC); Hypogammaglobuline hakeem; Obesity, morbid (HCC) 06/22/2024 7:00 AM LUNCH COOK Clinical Support [facility] - Lab Collection [address] [facility] Floor [address] [place] [address] Multiple myeloma, remission status unspecified (HCC); Multiple myeloma in relapse (HCC) 06/22/2024 Orders Only [facility]plant [address] [facility] 6 [place] [phone] Hermelindo Hill MD 06/22/2024 Orders Only [facility] [address] [facility] 6 [place] [address] Hermelindo Hill MD Multiple myeloma in remission (HCC) (Primary Dx); Multiple myeloma in relapse (HCC) from Last 3 Months Immunizations Immunization Administration [...] chemotherapy has chemo every 21 days at [facility] tx 09/24/22 Cough patient states D r [...] drink = 0.6 oz pur e alcohol) [employer] Answer Date Recorded In the past 12 months has [employer], gas, oil, or water [employer] threatened to shut off services in your [...] 09/13/2024 How often do you attend chur or druze services? More than 4 times per year 09/13/2024 Do you belong to any clubs o r organizations such as synagogue groups, unions, fraternal or athletic groups, or [...] any time in the past 12 m [facility], were you homeless or living in a alf (including now)? No 09/13/2024 Personal Safety Answer Date Recorded Have you ever been in or are you currently in a harmful physical or emotional relationship or is someone making you feel afraid or unsafe? Denies 09/11/2024 Sex and Gender Information Value Date Recorded Sex Assigned at Not on file Legal Sex 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 LUNCH COOK Gender Identity Not on file Sexual Orientation [...] 2024 06/13/2021, 07/05/2020, 06/07/2020 Fall Risk Assessment 09/15/2025 09/15/2024 DTaP/Tdap/Td Vaccine (3 - Td or Tdap) 06/21/2033 06/21/2023, 12/09/2011 Zoster Vaccine Completed 08/15/2018, 05/10, 02/28/2018 Pneumococcal vaccine 65+ Completed 04/15/2021, 01/2015 Hepatitis C Screening Completed 10/16/2021 Influenza Vaccine Completed 03/07/2024, , 03/08/2023, Additional history exists Prostate Cancer Screening-PSA Discontinued , 09/23/2023, 09/02/2023, Additional history exists Medical Devices Implanted Type Area Die Repairer Stamping Device Identifier Shelf Expiration Date Model / Serial / Lot Other - See Comments Other - see comments Right: Chest Wall Description:Upon arrival to IR, not accessed Procedures Procedure Name Priority Date/Time Associated Diagnosis Comments UT INSJ NON-TUNNELED CENTRAL VENOUS CATH AGE 5 [...] Read Routine (OP Routine) 08/06/2024 2:42 PM LUNCH COOK Multiple myeloma, remission status unspecified (HCC) URINALYSIS, MICROSCOPIC ONLY Routine 08/06/2024 9:19 AM LUNCH COOK JOHN (acute kidney injury) PROTEIN / CREATININE RATIO, URINE, RANDOM Routine 08/06/2024 9:19 AM LUNCH COOK JOHN (acute kidney injury) URINALYSIS AND REFLEX TO MICROSCOPIC Routine 08/06/2024 9:19 AM LUNCH COOK JOHN (acute kidney injury) EGFR Routine 08/06/2024 7:43 AM LUNCH COOK Multiple myeloma, remission status unspecified (HCC) DIFFERENTIAL AUTO Routine 08/06/2024 7:4 3 AM LUNCH COOK Multiple myeloma, remission status unspecified (HCC) LACTATE DEHYDROGENASE Routine 08/06/2024 7:43 AM LUNCH COOK Multiple myeloma, remission status unspecified (HCC) CBC WITH AUTO DIFFERENTIAL Routine 08/06/2024 7:43 AM LUNCH COOK Multiple myeloma, remission status unspecified (HCC) COMPREHENSIVE METABOLIC PANEL Routine 08/06/2024 7:43 AM LUNCH COOK Multiple myeloma, remission status unspecified (HCC) LIPID PANEL Routine 08/06/2024 7:43 AM LUNCH COOK Multiple myeloma, remission status unspecified (HCC) PSA DIAGNOSTIC Routine 08/06/2024 7:43 AM LUNCH COOK Multiple myeloma, remission status unspecified (HCC) PROTIME-INR STAT 08/03/2024 9:21 AM LUNCH COOK Multiple myeloma in relapse (HCC) APTT STAT 08/03/2024 9:21 AM LUNCH COOK Multiple myeloma in relapse (HCC) MAGNESIUM STAT 08/03/2024 7:40 AM LUNCH COOK Multiple myeloma in relapse (HCC) GAMMA GT STAT 08/03/2024 7:40 AM LUNCH COOK Multiple myeloma in relapse (HCC) EGFR Routine 08/03/2024 7:40 AM LUNCH COOK Multiple myeloma, remission status unspecified (HCC) DIFFERENTIAL AUTO Routine 08/03/2024 7:4 0 AM LUNCH COOK Multiple myeloma, remission status unspecified (HCC) CBC WITH AUTO DIFFERENTIAL Routine 08/03/2024 7:40 AM LUNCH COOK Multiple myeloma, remission status unspecified (HCC) COMPREHENSIVE METABOLIC PANEL Routine 08/03/2024 7:40 AM LUNCH COOK Multiple myeloma, remission status unspecified (HCC) IGA Routine 08/03/2024 7:40 AM LUNCH COOK Multiple myeloma, remission status unspecified (HCC) IGG Routine 08/03/2024 7:40 AM LUNCH COOK Multiple myeloma, remission status unspecified (HCC) IGM Routine 08/03/2024 7:40 AM LUNCH COOK Multiple myeloma, remission status unspecified (HCC) IMMUNOGLOBULIN FREE LIGHT CHAINS Routine 08/03/2024 7:40 AM LUNCH COOK Multiple myeloma, remission status unspecified (HCC) LACTATE DEHYDROGENASE Routine 08/03/2024 7:40 AM LUNCH COOK Multiple myeloma, remission status unspecified (HCC) PROTEIN ELECTROPHORESIS, WITH REFLEX, SERUM Routine 08/03/2024 7:40 AM LUNCH COOK Multiple myeloma, remission status unspecified (HCC) IMMUNOTYPING Routine 08/03/2024 7:40 AM LUNCH COOK Multiple myeloma, remission status unspecified (HCC) HEMOGLOBIN A1C Routine 08/03/2024 7:40 AM LUNCH COOK Multiple myeloma, remission status unspecified (HCC) URINALYSIS, MICROSCOPIC ONLY Routine 08/03/2024 7:30 AM LUNCH COOK Multiple myeloma, remission status unspecified (HCC) URINE CULTURE Routine 08/03/2024 7:30 AM LUNCH COOK URINALYSIS AND REFLEX TO MICROSCOPIC AND CULTURE Routine 08/03/2024 7:30 AM LUNCH COOK Multiple myeloma, remission status unspecified (HCC) EGFR STAT 07/13/2024 7:40 AM LUNCH COOK Multiple myeloma in relapse (HCC) DIFFERENTIAL AUTO STAT 07/13/2024 7:4 0 AM LUNCH COOK Multiple myeloma in relapse (HCC) IGA Routine 07/13/2024 7:40 AM LUNCH COOK Multiple myeloma, remission status unspecified (HCC) IGG Routine 07/13/2024 7:40 AM LUNCH COOK Multiple myeloma, remission status unspecified (HCC) IGM Routine 07/13/2024 7:40 AM LUNCH COOK Multiple myeloma, remission status unspecified (HCC) IMMUNOGLOBULIN FREE LIGHT CHAINS Routine 07/13/2024 7:40 AM LUNCH COOK Multiple myeloma, remission status unspecified (HCC) PROTEIN ELECTROPHORESIS, WITH REFLEX, SERUM Routine 07/13/2024 7:40 AM LUNCH COOK Multiple myeloma, remission status unspecified (HCC) IMMUNOTYPING Routine 07/13/2024 7:40 AM LUNCH COOK Multiple myeloma, remission status unspecified (HCC) LACTATE DEHYDROGENASE Routine 07/13/2024 7:40 AM LUNCH COOK Multiple myeloma in relapse (HCC) GAMMA GT STAT 07/13/2024 7:40 AM LUNCH COOK Multiple myeloma in relapse (HCC) MAGNESIUM STAT 07/13/2024 7:40 AM LUNCH COOK Multiple myeloma in relapse (HCC) COMPREHENSIVE METABOLIC PANEL STAT 07/13/2024 7:40 AM LUNCH COOK Multiple myeloma in relapse (HCC) CBC WITH AUTO DIFFERENTIAL STAT 07/13/2024 7:40 AM LUNCH COOK Multiple myeloma in relapse (HCC) APTT STAT 07/13/2024 7:24 AM LUNCH COOK Multiple myeloma in relapse (HCC) PROTIME-INR STAT 07/13/2024 7:24 AM LUNCH COOK Multiple myeloma in relapse (HCC) IMMUNOTYPING Routine 06/22/2024 7:20 AM LUNCH COOK Multiple myeloma, remission status unspecified (HCC) EGFR Routine 06/22/2024 7:20 AM LUNCH COOK Multiple myeloma, remission status unspecified (HCC) DIFFERENTIAL AUTO Routine 06/22/2024 7:2 0 AM LUNCH COOK Multiple myeloma, remission status unspecified (HCC) CBC WITH AUTO DIFFERENTIAL Routine 06/22/2024 7:20 AM LUNCH COOK Multiple myeloma, remission status unspecified (HCC) COMPREHENSIVE METABOLIC PANEL Routine 06/22/2024 7:20 AM LUNCH COOK Multiple myeloma, remission status unspecified (HCC) IGA Routine 06/22/2024 7:20 AM LUNCH COOK Multiple myeloma, remission status unspecified (HCC) IGG Routine 06/22/2024 7:20 AM LUNCH COOK Multiple myeloma, remission status unspecified (HCC) IGM Routine 06/22/2024 7:20 AM LUNCH COOK Multiple myeloma, remission status unspecified (HCC) IMMUNOGLOBULIN FREE LIGHT CHAINS Routine 06/22/2024 7:20 AM LUNCH COOK Multiple myeloma, remission status unspecified (HCC) LACTATE DEHYDROGENASE Routine 06/22/2024 7:20 AM LUNCH COOK Multiple myeloma, remission status unspecified (HCC) PROTEIN ELECTROPHORESIS, WITH REFLEX, SERUM Routine 06/22/2024 7:20 AM LUNCH COOK Multiple myeloma, remission status unspecified (HCC) MAGNESIUM STAT 06/22/2024 7:20 AM LUNCH COOK Multiple myeloma in relapse (HCC) GAMMA GT STAT 06/22/2024 7:20 AM LUNCH COOK Multiple myeloma in relapse (HCC) PROTIME-INR STAT 06/22/2024 7:20 AM LUNCH COOK Multiple myeloma in relapse (HCC) APTT STAT 06/22/2024 7:20 AM LUNCH COOK Multiple myeloma in relapse (HCC) HEPATITIS C ANTIBODY STAT 10/16/2021 9:50 AM CDT Multiple myeloma in relapse (HCC) from Last 3 Months or Most Recently Relevant to Health Maintenance Results * UT INSJ NON-TUNNELED CENTRAL VENOUS CATH AGE 5 YR/> (09/15/2024 1:20 PM CDT) Narrative Lianna Denny PA - 09/15/2024 1:20 PM CDT Lianna Denny PA 09/15/2024 1:40 PM Midline Insertion Date/Time: 09/15/2024 1:20 PM Performed by: Lianna Denny PA Authorized by: Lianna Denny PA [place] Protocol: RN Notified of Procedure: yes Informed consent: Risks, benefits, alternatives discussed and patient/environmental marketing representative/guardian agrees and accepts Patient's stated name/ [...] or other items are accounted for: yes Lianna NEUMANN IN CLINIC/BEDSIDE OR DERABLES Final [...] Santana MD LAB BLOOD ORDERABLES Final Result [facility] [address] Department [place] [address] * (ABNORMAL) CBC without differential (09/15/2024 3:52 AM CDT) [facility] WBC 6.46 3.80 - 9.90 K/cumm Hgb 10.1(L) 13.0 - 17.5 g/dL [facility] Hct 31.4(L) 38.9 - 50.3 % [facility] Plt 149(L) 150 - 400 K/cumm [facility] MPV 9.2 9.1 - 12.[address] [facility] RBC 3.20(L) 4.30 - 5.80 M/cumm [facility] MCV 98.1(H) 81.3 - 96.[address] f[address] [facility] MCH 31.6 27.1 - 33.[address] [facility] MCHC 32.2(L) 32.3 - 35.7 g/dL [facility] RDW CV 14.9 11.1 - 14.9 % [facility] RDW SD 54.3(H) 35.7 - 48.[address] [facility] NRBC abs 0.00 0.00 - 0.01 K/cumm [facility] Blood 09/15/2024 3:52 AM CDT 09/15/2024 4:02 AM CDT us Emory Santana MD LAB BLOOD ORDERABLES Final Result [facility] [address] Department [place] [address] * (ABNORMAL) Basic metabolic panel (09/15/2024 3:52 AM CDT) Sodium 143 135 - 145 mmol/L Potassium, pl 3.2(L) 3.3 - 4.9 mmol/L [facility] Chloride 105 97 - 110 mmol/L [facility] CO2 28 22 - 32 mmol/L [facility] Anion gap 10 2 - 15 mmol/L [facility] BUN 12 6 - 25 mg/dL [facility] Creatinine 1.45(H) 0.80 - 1.30 mg/dL [facility] Glucose 110 70 - 199 mg/dL [facility] Comment: Interpretive Data Fasting glucose >/= [...] 2022. Calcium 8.2(L) 8.5 - 10.3 mg/dL [facility] Blood 09/15/2024 3:52 AM CDT 09/15/2024 4:02 AM CDT Emory Santana MD LAB BLOOD ORDERABLES Final Result Performing Organization Address [facility] Co de Phone Number [facility] [address] Department of [employer] [place], [place] [id number] * (ABNORMAL) eGFR (09/14/2024 2:25 AM CDT) Pathologist [facility] eGFR 48(L) >=60 mL/min/1. 73 m2 Comment: [...] City/[facility]/ZIP Co de Phone Number [facility] [address] Department of Laboratories [place], [place] [id number] * (ABNORMAL) CBC without differential (09/14/2024 2:25 AM CDT) Pathologist [facility] WBC 5.62 3.80 - 9.90 K/cumm Hgb 10.0(L) 13.0 - 17.5 g/dL [facility] Hct 31.1(L) 38.9 - 50.3 % [facility] Plt 163 150 - 400 K/cumm [facility] MPV 9.3 9.1 - 12.[address] [facility] RBC 3.15(L) 4.30 - 5.80 M/cumm [facility] MCV 98.7(H) 81.3 - 96.[address] [facility] MCH 31.7 27.1 - 33.[address] [facility] MCHC 32.2(L) 32.3 - 35.7 g/dL [facility] RDW CV 15.4(H) 11.1 - 14.9 % [facility] RDW SD 55.6(H) 35.7 - 48.[address] [facility] NRBC abs 0.00 0.00 - 0.01 K/cumm [facility] Blood 09/14/2024 2:25 AM CDT 09/14/2024 2:44 AM CDT Emory Santana MD LAB BLOOD ORDERABLES Final Result [facility] [address] Department [place] [address] * (ABNORMAL) Basic metabolic panel (09/14/2024 2:25 AM CDT) Sodium 146(H) 135 - 145 mmol/L Potassium, pl 3.3 3.3 - 4.9 mmol/L [facility] Chloride 108 97 - 110 mmol/L [facility] CO2 27 22 - 32 mmol/L [facility] Anion gap 11 2 - 15 mmol/L [facility] BUN 18 6 - 25 mg/dL [facility] Creatinine 1.53(H) 0.80 - 1.30 mg/dL [facility] Glucose 116 70 - 199 mg/dL [facility] Comment: Interpretive Data Fasting glucose >/= [...] 2022. Calcium 8.1(L) 8.5 - 10.3 mg/dL [facility] Blood 09/14/2024 2:25 AM CDT 09/14/2024 2:44 AM CDT us Emory Santana MD LAB BLOOD ORDERABLES Final Result [facility] [address] Department [place] [address] * (ABNORMAL) eGFR (09/13/2024 3:21 AM CDT) [...] Santana MD LAB BLOOD ORDERABLES Final Result [facility] [address] Department [place] [address] * (ABNORMAL) CBC without differential (09/13/2024 3:21 AM CDT) [facility] WBC 5.46 3.80 - 9.90 K/cumm Hgb 10.1(L) 13.0 - 17.5 g/dL [facility] Hct 30.8(L) 38.9 - 50.3 % [facility] Plt 160 150 - 400 K/cumm [facility] MPV 9.7 9.1 - 12.[address] [facility] RBC 3.15(L) 4.30 - 5.80 M/cumm [facility] MCV 97.8(H) 81.3 - 96.[address] [facility] MCH 32.1 27.1 - 33.[address] [facility] MCHC 32.8 32.3 - 35.7 g/dL [facility] RDW CV 15.7(H) 11.1 - 14.9 % [facility] RDW SD 56.4(H) 35.7 - 48.[address] [facility] NRBC abs 0.00 0.00 - 0.01 K/cumm [facility] Blood 09/13/2024 3:21 AM CDT 09/13/2024 3:48 AM CDT us Emory Santana MD LAB BLOOD ORDERABLES Final Result [facility] [address] Department [place] [address] * (ABNORMAL) Basic metabolic panel (09/13/2024 3:21 AM CDT) [facility] Sodium 141 135 - 145 mmol/L Potassium, pl 3.3 3.3 - 4.9 mmol/L [facility] Chloride 105 97 - 110 mmol/L [facility] CO2 24 22 - 32 mmol/L [facility] Anion gap 12 2 - 15 mmol/L [facility] BUN 24 6 - 25 mg/dL [facility] Creatinine 1.55(H) 0.80 - 1.30 mg/dL [facility] Glucose 115 70 - 199 mg/dL [facility] Comment: Interpretive Data Fasting glucose >/= [...] 2022. Calcium 8.1(L) 8.5 - 10.3 mg/dL [facility] Blood 09/13/2024 3:21 AM CDT 09/13/2024 3:48 AM CDT us Emory Santana MD LAB BLOOD ORDERABLES Final Result [facility] [address] Department [place] [address] * TRANSTHORACIC ECHO (TTE) COMPLETE W DOPPLER/CF WO CONTRAST (09/12/2024 2:39 PM CDT) LV EF 55-60 % CONS SCIMAGE Anatomical Region Laterality Modality Ultrasound 09/12/2024 12:1 1 PM CDT Narrative 09/12/2024 2:42 PM CDT [facility] [address] [address] ECHOCARDIOGRAM Patient Name: TORI BUFFYCarl : 1950 (73y 9m) Gender: M Study Date: 09/12/2024 12:11:05 PM Ht(Inch): 69 Wt(Lb): 275.57 BSA: 2.47 Plant Buyer: JIM Location: [id number] Order Provider: MENDYBAILEYON BMI: 40.69 BP: 128/72 Ref Provider: NAUP SIN - PROCEDURES: Echocardiographic Report: Transthoracic Echocardiogram [...] the inferior vena cava. Electronically Signed By: hCoco Thomas MD 09/12/2024 2:41:52 PM CDT Procedure Note Choco Thomas MD - 09/12/2024 [id number] [place] [address] ECHOCARDIOGRAM Patient Name: ROBSONGRICELDACRISTOBALSHASHANKBUFFY B : 1950 (73y 9m) Gender: M Study Date: 09/12/2024 12:11:05 PM Ht(Inch): 69 Wt(Lb): 275.57 BSA: 2.47 Plant Buyer: JIM Location: [id number] Order Provider: ANUP SIN BMI: 40.69 BP: [...] Choco Thomas MD 09/12/2024 2:41:52 PM CDT Anup Sin MD CV ECHO PROCEDURES Fi nal Result * (ABNORMAL) eGFR (09/12/2024 3:14 AM CDT) [facility] eGFR 36(L) >=60 mL/min/1. 73 m2 Comment: [...] Santana MD LAB BLOOD ORDERABLES Final Result [facility] [address] Department of Laboratories [place], [place] [id number] * (ABNORMAL) CBC without differential (09/12/2024 3:14 AM CDT) [facility] WBC 7.12 3.80 - 9.90 K/cumm Hgb 10.3(L) 13.0 - 17.5 g/dL [facility] Hct 31.8(L) 38.9 - 50.3 % [facility] Plt 150 150 - 400 K/cumm [facility] MPV 9.5 9.1 - 12.[address] [facility] RBC 3.23(L) 4.30 - 5.80 M/cumm [facility] MCV 98.5(H) 81.3 - 96.[address] [facility] MCH 31.9 27.1 - 33.[address] [facility] MCHC 32.4 32.3 - 35.7 g/dL [facility] RDW CV 15.9(H) 11.1 - 14.9 % [facility] RDW SD 57.1(H) 35.7 - 48.[address] [facility] NRBC abs 0.00 0.00 - 0.01 K/cumm [facility] Blood 09/12/2024 3:14 AM CDT 09/12/2024 3:35 AM CDT us Emory Santana MD LAB BLOOD ORDERABLES Final Result [facility] [address] Department [place] [address] * (ABNORMAL) Basic metabolic panel (09/12/2024 3:14 AM CDT) Sodium 139 135 - 145 mmol/L Potassium, pl 3.3 3.3 - 4.9 mmol/L [facility] Chloride 101 97 - 110 mmol/L [facility] CO2 23 22 - 32 mmol/L [facility] Anion gap 15 2 - 15 mmol/L [facility] BUN 31(H) 6 - 25 mg/dL [facility] Creatinine 1.96(H) 0.80 - 1.30 mg/dL [facility] Glucose 114 70 - 199 mg/dL [facility] Comment: Interpretive Data Fasting glucose >/= [...] 2022. Calcium 8.4(L) 8.5 - 10.3 mg/dL [facility] Blood 09/12/2024 3:14 AM CDT 09/12/2024 3:34 AM CDT us Emory Santana MD LAB BLOOD ORDERABLES Final Result Performing Organization Address [facility]/ZIP Co de Phone Number [facility] [address] [place] [address] * (ABNORMAL) eGFR (09/11/2024 4:59 AM CDT) [...] Santana MD LAB BLOOD ORDERABLES Final Result [facility] [address] Department of [employer] [place], [place] [id number] * Blood culture Blood (09/11/2024 4:59 AM CDT) Report Final Report: No growth Blood 09/11/2024 4:59 AM CDT 09/11/2024 5:09 AM CDT [facility]ative [facility] - 09/16/2024 7:01 AM CDT [...] organism identification may be performed using the Job1001 Blood Culture Identification panel. This assay detects microbial DNA in a blood culture broth. This assay has been cleared by the [place] Food and Drug Administration and its performance characteristics have been verified by the [facility]. Interpretive data was last revised on July 11, 2022. Emory Santana MD LAB MICROBIOLOGY - GENERAL ORDERABLES Final Result [facility] [address] Department [place] [address] * Blood culture Blood (09/11/2024 4:59 AM CDT) Report Final Report: No growth Blood 09/11/2024 4:59 AM CDT 09/11/2024 5:09 AM CDT Narrative [facility] - 09/16/2024 7:01 AM CDT [...] organism identification may be performed using the Job1001 Blood Culture Identification panel. This assay detects microbial DNA in a blood culture broth. This assay has been cleared by the [place] Food and Drug Administration and its performance characteristics have been verified by the [facility]. Interpretive data was last revised on July 11, 2022. Emory Santana MD LAB MICROBIOLOGY - GENERAL ORDERABLES Final Result Performing Organization Address [facility]/ZIP Co de Phone Number [facility] [address] [place] [address] * (ABNORMAL) CBC without differential (09/11/2024 4:59 AM CDT) WBC 11.33(H) 3.80 - 9.90 K/cumm Hgb 10.8(L) 13.0 - 17.5 g/dL [facility] Hct 33.2(L) 38.9 - 50.3 % [facility] Plt 138(L) 150 - 400 K/cumm [facility] MPV 9.5 9.1 - 12.[address] [facility] RBC 3.37(L) 4.30 - 5.80 M/cumm [facility] MCV 98.5(H) 81.3 - 96.[address] [facility] MCH 32.0 27.1 - 33.[address] [facility] MCHC 32.5 32.3 - 35.7 g/dL [facility] RDW CV 15.9(H) 11.1 - 14.9 % [facility] RDW SD 57.7(H) 35.7 - 48.[address] [facility] NRBC abs 0.00 0.00 - 0.01 K/cumm [facility] Blood 09/11/2024 4:59 AM CDT 09/11/2024 5:08 AM CDT Emory Santana MD LAB BLOOD ORDERABLES Final Result Performing Organization Address City/[facility]/ZIP Co de Phone Number [facility] [address] Department [employer] [place], [place] [phone] * (ABNORMAL) Basic metabolic panel (09/11/2024 4:59 AM CDT) Sodium 139 135 - 145 mmol/L Potassium, pl 3.7 3.3 - 4.9 mmol/L [facility] Chloride 102 97 - 110 mmol/L [facility] CO2 23 22 - 32 mmol/L [facility] Anion gap 14 2 - 15 mmol/L [facility] BUN 39(H) 6 - 25 mg/dL [facility] Creatinine 2.45(H) 0.80 - 1.30 mg/dL [facility] Glucose 131 70 - 199 mg/dL [facility] Comment: Interpretive Data Fasting glucose >/= [...] 2022. Calcium 8.8 8.5 - 10.3 mg/dL [facility] Blood 09/11/2024 4:59 AM CDT 09/11/2024 5:07 AM CDT us Emory Santana MD LAB BLOOD ORDERABLES Final Result [facility] [address] Department [place] [address] * (ABNORMAL) Urinalysis reflex to microscopic and culture Urine, indwelling catheter (09/11/2024 4:07AM CDT) Color, ur Yellow Yellow Clarity, ur Clear Clear [facility] Specific gravity, ur 1.013 1.003 - 1.030 [facility] pH, urine 5.5 [facility] Comment: Interpretive Data U rine pH is affected by diet, medications, systemic acid-base disturbances, and renal tubular function. pH may affect urinary stone formation. For example, urine pH below 6.0 may help reduce the tendency for calcium phosphate stones and pH greater than 6.0 may reduce the tendency for uric acid stone formation. Source: [facility] [employer] Current Interpretive Data was last revised on 2017 Protein, ur ql Trace Negative [facility] Glucose, ur ql Negative Negative [facility] Ketones, ur Negative Negative [facility] Bilirubin, ur Negative Negative [facility] Blood, ur 1+(A) Negative [facility] Urobilinogen, ur <2.0 <2.0 mg/dL [facility] Nitrite, ur Negative Negative [facility] Leukocyte esterase, ur 2+(A) Negative [facility] UA reflex comment Reflex to microscopic UA will be performed. [facility] Urine, indwelling catheter 09/11/2024 4:07 AM CDT 09/11/2024 4:07 AM CDT Emory Santana MD LAB MICROBIOLOGY - GENERAL ORDERABLES Final Result Performing Organization Address [facility] Co de Phone Number [facility] [address] Department [employer] [place], [place] [phone] * (ABNORMAL) Urinalysis, microscopic only (09/11/2024 4:07 AM CDT) WBC, ur 11-20(A) 0 - 5 /HPF RBC, ur 3-5(A) 0 - 2 /HPF [facility] Culture Reflex Comment Reflex to urine culture will be performed. [facility] Urine, indwelling catheter 09/11/2024 4:07 AM CDT 09/11/2024 4:14 AM CDT us Emory Santana MD LAB URINE ORDERABLES Final Result Performing Organization Address [facility]/ZIP Co de Phone Number [facility] [address] Department [employer] [place], [place] [phone] * (ABNORMAL) Urine culture Urine, indwelling catheter (09/11/2024 4:07 AM CDT) Report Final Report: Less than 10,000 colonies/ml of Gram Positive Organism No further workup. (.) Organism GRAM POSITIVE ORGANISM [facility] Urine, indwelling catheter 09/11/2024 4:07 AM CDT 09/11/2024 6:47 AM CDT Narrative [facility] - 09/13/2024 7:16 AM CDT Urine culture reflexed based upon urinalysis results. us Emory Santana MD LAB MICROBIOLOGY - GENERAL ORDERABLES Final Result Performing Organization Address [facility]/ZIP Co de Phone Number [facility] [address] Department of [employer] [place], [place] [phone] * (ABNORMAL) eGFR (09/11/2024 2:32 AM CDT) [...] [facility]/ZIP Co de Phone Number [facility] [address] Department of [employer] [place], [place] [phone] * (ABNORMAL) Differential, auto (09/11/2024 2:32 AM CDT) Neutrophil abs 12.22(H) 1.50 - 6.50 K/cumm Imm gran abs 0.10 0.00 - 0.10 K/cumm [facility] Lymphocyte abs 0.79(L) 0.80 - 3.30 K/cumm [facility] Monocyte abs 1.12(H) 0.20 - 0.80 K/cumm [facility] Eosinophil abs 0.00 0.00 - 0.50 K/cumm [facility] Basophil abs 0.03 0.00 - 0.10 K/cumm [facility] Neutrophil pct 85.7 % [facility] Comment: Interpretive Data Percent cell count reference ranges are not reported, since discordance with absolute values may lead to misinterpretation of CBC data. Current Interpretive Data was last revised on 2017. Imm gran pct 0.7 % [facility] Comment: Interpretive Data Percent cell count reference ranges are not reported, since discordance with absolute values may lead to misinterpretation of CBC data. Current Interpretive Data was last revised on 2017. Lymphocyte pct 5.5 % [facility] Comment: Interpretive Data Percent cell count reference ranges are not reported, since discordance with absolute values may lead to misinterpretation of CBC data. Current Interpretive Data was last revised on 2017. Monocyte pct 7.9 % [facility] Comment: Interpretive Data Percent cell count reference ranges are not reported, since discordance with absolute values may lead to misinterpretation of CBC data. Current Interpretive Data was last revised on 2017. Eosinophil pct 0.0 % [facility] Comment: Interpretive Data Percent cell count reference ranges are not reported, since discordance with absolute values may lead to misinterpretation of CBC data. Current Interpretive Data was last revised on 2017. Basophil pct 0.2 % [facility] Comment: Interpretive Data Percent cell count reference ranges are not reported, since discordance with absolute values may lead to misinterpretation of CBC data. Current Interpretive Data was last revised on 2017. Blood 09/11/2024 2:32 AM CDT 09/11/2024 2:46 AM CDT us Emory Santana MD LAB BLOOD ORDERABLES Final Result Performing Organization Address [facility] Co de Phone Number [facility] [address] Department [place] [address] * (ABNORMAL) CBC with auto differential (09/11/2024 2:32 AM CDT) [facility] WBC 14.26(H) 3.80 - 9.90 K/cumm Hgb 11.6(L) 13.0 - 17.5 g/dL [facility] Hct 34.8(L) 38.9 - 50.3 % [facility] Plt 171 150 - 400 K/cumm [facility] MPV 9.8 9.1 - 12.[address] [facility] RBC 3.59(L) 4.30 - 5.80 M/cumm [facility] MCV 96.9(H) 81.3 - 96.[address] [facility] MCH 32.3 27.1 - 33.[address] [facility] MCHC 33.3 32.3 - 35.7 g/dL [facility] RDW CV 16.1(H) 11.1 - 14.9 % [facility] RDW SD 57.1(H) 35.7 - 48.[address] [facility] NRBC abs 0.00 0.00 - 0.01 K/cumm [facility] Blood 09/11/2024 2:32 AM CDT 09/11/2024 2:46 AM CDT us Emory Santana MD LAB BLOOD ORDERABLES Final Result Performing Organization Address [facility]/ZIP Co de Phone Number [facility] [address] Department [place] [address] * aPTT (09/11/2024 2:32 AM CDT) [facility] aPTT 32 28 - 38 sec Comment: Interpretive Data Heparin therapeutic range: 66.0 - 100.0 seconds. Range based on correlation with therapeutic heparin activity range of 0.3 - 0.7 Units/mL. Current interpretive data was last revised on 2023. Blood 09/11/2024 2:32 AM CDT 09/11/2024 2:46 AM CDT us Emory Santana MD LAB BLOOD ORDERABLES Final Result Performing Organization Address [facility] Co de Phone Number [facility] [address] Department [place] [address] * (ABNORMAL) Protime-INR (09/11/2024 2:32 AM CDT) PT 16.4(H) 9.7 - 13.0 sec INR 1.51(H) 0.90 - 1.20 [facility] Comment: Interpretive data Oral anticoagulant therapeutic ranges: Venous thromboembolism prophylaxis or treatment: 2.0-3.0 CARDIOLOGY Standard range: 2.0-3.0 High-intensity range: 2.5-3.5 Refer to indication-specific guidelines for appropriate target ranges for prosthetic heart valve replacement. Current interpretive data was last revised on 2019. Blood 09/11/2024 2:32 AM CDT 09/11/2024 2:46 AM CDT Result Matt Santana MD LAB BLOOD ORDERABLES Final Result Performing Organization Address [facility] Co de Phone Number [facility] [address] Department [place] [address] * Vancomycin level random (09/11/2024 2:32 AM CDT) Vancomycin random <4.0 mcg/mL Comment: Interpretive Data No reference ranges have been established for random drug levels. Current Interpretive Data was last revised on 2020. Blood 09/11/2024 2:32 AM CDT 09/11/2024 2:46 AM CDT us Emory Santana MD LAB BLOOD ORDERABLES Final Result Performing Organization Address [facility]/ZIP Co de Phone Number [facility] [address] Department [place] [address] * (ABNORMAL) Comprehensive metabolic panel (09/11/2024 2:32 AM CDT) Sodium 140 135 - 145 mmol/L Potassium, pl 3.7 3.3 - 4.9 mmol/L [facility] Chloride 103 97 - 110 mmol/L [facility] CO2 22 22 - 32 mmol/L [facility] Anion gap 15 2 - 15 mmol/L [facility] BUN 35(H) 6 - 25 mg/dL [facility] Creatinine 2.36(H) 0.80 - 1.30 mg/dL [facility] Glucose 128 70 - 199 mg/dL [facility] Comment: Interpretive Data Fasting glucose >/= [...] 2022. Calcium 8.7 8.5 - 10.3 mg/dL [facility] Bilirubin, total 1.0 0.1 - 1.2 mg/dL [facility] Protein, pl 6.2(L) 6.5 - 8.5 g/dL [facility] Albumin 3.8 3.5 - 5.0 g/dL [facility] Alk phos 63 40 - 130 Units/L [facility] ALT 13 7 - 55 Units/L [facility] AST 15 10 - 50 Units/L [facility] Blood 09/11/2024 2:32 AM CDT 09/11/2024 2:46 AM CDT us Emory Santana MD LAB BLOOD ORDERABLES Final Result [facility] [address] Department [place] [address] * Differential, auto (08/31/2024 8:12 AM CDT) Neutrophil abs 6.0 1.5 - 6.5 K/cumm Comment:Testing performed by : [facility], [address] [place] [address] Lymphocyte abs 1.0 0.8 - 3.3 K/cumm [facility] Comment:Testing performed by : [facility], [address] [place] [address] Monocyte abs 0.6 0.2 - 0.8 K/cumm [facility] Comment:Testing performed by : [facility], [address] [place], [place] [id number] Eosinophil abs 0.3 0.0 - 0.5 K/cumm [facility] Comment:Testing performed by : [facility], [address] [place] [address] Basophil abs 0.1 0.0 - 0.1 K/cumm [facility] Comment:Testing performed by : [facility], [address] [place] [address] Neutrophil pct 75.2 % [facility] Comment: Interpretive Data Percent cell count reference ranges are not reported, since discordance with absolute values may lead to misinterpretation of CBC data. Current Interpretive Data was last revised on 2017. Testing performed by: [facility], [address] [place] [address] Lymphocyte pct 12.4 % [facility] Comment: Interpretive Data Percent cell count reference ranges are not reported, since discordance with absolute values may lead to misinterpretation of CBC data. Current Interpretive Data was last revised on 2017. Testing performed by: [facility], [address] [place] [address] Monocyte pct 7.9 % [facility] Comment: Interpretive Data Percent cell count reference ranges are not reported, since discordance with absolute values may lead to misinterpretation of CBC data. Current Interpretive Data was last revised on 2017. Testing performed by: [facility], [address] [place] [phone] Eosinophil pct 3.9 % [facility] Comment: Interpretive Data Percent cell count reference ranges are not reported, since discordance with absolute values may lead to misinterpretation of CBC data. Current Interpretive Data was last revised on 2017. Testing performed by: [facility], [address] [place] [phone] Basophil pct 0.6 % [facility] Comment: Interpretive Data Percent cell count reference ranges are not reported, since discordance with absolute values may lead to misinterpretation of CBC data. Current Interpretive Data was last revised on 2017. Testing performed by: [facility], [address] [place] [phone] Blood 08/31/2024 8:12 AM CDT 08/31/2024 8:16 AM CDT Hermelindo Butler MD LAB BLOOD ORDER ELANA Final Result [facility] Department of Laboratories [place], [place] [id number] * (ABNORMAL) CBC with auto differential (08/31/2024 8:12 AM CDT) WBC 8.0 3.8 - 9.9 K/cumm Comment:Testing performed by : [facility], [address] [place] [address] Hgb 12.7(L) 13.0 - 17.5 g/dL [facility] Comment:Testing performed by : [facility], [address] [place] [address] Hct 37.8(L) 38.9 - 50.3 % MT SUAREZ Comment:Testing performed by : [facility], [address] [place] [address] Plt 176 150 - 400 K/cumm MT SUAREZ Comment:Testing performed by : [facility], [address] [place] [address] MPV 7.7 6.8 - 10.4 fL MT SUAREZ Comment:Testing performed by : [facility], [address] [place] [address] RBC 4.07(L) 4.30 - 5.80 M/cumm MT SUAREZ Comment:Testing performed by : [facility], [address] [place], [place] [id number] MCV 92.8 81.3 - 96.4 fL MT SUAREZ Comment:Testing performed by : [facility], [address] [place], [place] [id number] MCH 31.2 27.1 - 33.3 pg MT SUAREZ Comment:Testing performed by : [facility], [address] [place] [address] MCHC 33.6 32.3 - 35.7 g/dL MT SUAREZ Comment:Testing performed by : [facility], [address] [place] [address] RDW CV 16.1(H) 11.1 - 14.9 % MT SUAREZ Comment:Testing performed by : [facility], [address] [place] [address] NRBC abs 0.00 0.00 - 0.01 K/cumm MT [facility] Comment:Testing performed by : [facility], [address] [place] [address] Blood 08/31/2024 8:12 AM CDT 08/31/2024 8:16 AM CDT us Hermelindo Butler MD LAB BLOOD ORDER ELANA Final Result MT SUAREZ [facility] Department [place] [address] * Type and screen (08/31/2024 8:12 AM CDT) ABO Rh A Positive Yehuda, indirect Negative [facility] Comment:Patient has previous antibody history Blood 08/31/2024 8:12 AM CDT 08/31/2024 8:25 AM CDT N[facility]ative [facility] - 08/31/2024 9:28 AM CDT Has the patient had Daratumumab or Isatuximab in the past 6 months?->Unknown Hermelindo Butler MD LAB BLOOD BANK TEST ORDERABLES Final Result Performing Organization Address City/[facility] Co de Phone Number [facility] Department [place] [address] * Immunotyping, serum with interpretation (08/31/2024 8:12 AM CDT) Pathologist [facility] Immunosubtraction Please see comment Comment: NO PARAPROTEIN DETECTED Reviewed and signed by Ivan Sims MD, PhD 09/01/2024 Blood 08/31/2024 8:12 AM CDT 08/31/2024 9:34 AM CDT Hermelindo Butler MD LAB BLOOD ORDER ELANA Final Result Performing Organization Address [facility] Co de Phone Number [facility] Department [place] [address] * (ABNORMAL) eGFR (08/31/2024 8:12 AM CDT) Pathologist [facility] eGFR 45(L) >=60 mL/min/1. 73 m2 Comment: [...] MD LAB BLOOD ORDER ELANA Final Result [facility] Department [place] [address] * (ABNORMAL) Immunoglobulin free light chains (08/31/2024 8:12 AM CDT) Braddock/Lambda ratio [facility] See Comment 0.26 - 1.65 Comment: Unable to calculate exact result. Interpretive Data The Binding Site FreeLite assay procedure was used. Results from different manufacturers or methods may not be comparable. Serial testing should be performed using the same methods and instrumentation. Current Interpretive Data was last revised on 2023. Braddock free light chain [facility] <0.06(L) 0.33 - 1.94 mg/dL MT [facility] Comment: Interpretive Data The Binding Site FreeLite assay procedure was used. Results from different manufacturers or methods may not be comparable. Serial testing should be performed using the same methods and instrumentation. Current Interpretive Data was last revised on 2023. Lambda free light chain [facility] <0.14(L) 0.57 - 2.63 mg/dL MT [facility] Comment: Interpretive Data The Binding Site FreeLite assay procedure was used. Results from different manufacturers or methods may not be comparable. Serial testing should be performed using the same methods and instrumentation. Current Interpretive Data was last revised on 2023. Blood 08/31/2024 8:12 AM CDT 08/31/2024 9:34 AM CDT Hermelindo Butler MD LAB BLOOD ORDER ELANA Final Result Performing Organization Address [facility] de Phone Number MT [facility] [place] [address] * (ABNORMAL) aPTT (08/31/2024 8:12 AM CDT) [...] ORDER ELANA Final Result Performing Organization Address [facility] de Phone Number [facility] [place] [address] * Protime-INR (08/31/2024 8:12 AM CDT) PT 11.4 9.7 - 13.0 sec INR 1.05 0.90 - 1.20 [facility] Comment: Interpretive data Oral [...] ORDER ELANA Final Result Performing Organization Address [facility] de Phone Number MT [facility] Department [place] [address] * (ABNORMAL) Protein electrophoresis with reflex, serum with interpretation (08/31/2024 8:12 AM CDT) [facility] Protein, sr 6.0(L) 6.2 - 8.2 g/dL Albumin 3.9 3.2 - 5.0 g/dL [facility] Alpha-1 globulin 0.4 0.2 - 0.4 g/dL [facility] Alpha-2 globulin 0.7 0.5 - 1.0 g/dL [facility] Beta-1 globulin 0.5 0.3 - 0.6 g/dL [facility] Beta-2 globulin 0.3 0.2 - 0.6 g/dL [facility] Gamma globulin 0.2(L) 0.5 - 1.7 g/dL [facility] SPEP interp Please see comment [facility] Comment: No apparent monoclonal peak Decreased gamma globulins Electrophoretic pattern appears similar to previous sample 08/24/2024 See immunotyping for further information Reviewed and signed by Ivan Sims MD, PhD 09/01/2024 Blood 08/31/2024 8:12 AM CDT 08/31/2024 9:34 AM CDT Hermelindo Butler MD LAB BLOOD ORDER ELANA Final Result [facility] Department [place] [address] * Magnesium (08/31/2024 8:12 AM CDT) [facility] Magnesium 1.8 1.4 - 2.5 mg/dL Blood 08/31/2024 8:12 AM CDT 08/31/2024 8:20 AM CDT Hermelindo Butler MD LAB BLOOD ORDER ELANA Final Result [facility] Department [place] [address] * Lactate dehydrogenase (LD) (08/31/2024 8:12 AM CDT) Pathologist [facility] Lactate dehydrogenase (LDH) 155 100 - 250 Units/L Blood 08/31/2024 8:12 AM CDT 08/31/2024 8:20 AM CDT Hermelindo Butler MD LAB BLOOD ORDER ELANA Final Result [facility] [place] [address] * Gamma GT (08/31/2024 8:12 AM CDT) Pathologist [facility] GGT 27 10 - 50 Units/L Blood 08/31/2024 8:12 AM CDT 08/31/2024 8:20 AM CDT Hermelindo Butler MD LAB BLOOD ORDER ELANA Final Result Performing Organization Address City/[facility] Co de Phone Number [facility] Department [place] [address] * (ABNORMAL) IgA (08/31/2024 8:12 AM CDT) Pathologist [facility] Immunoglobulin A <50(L) 70 - 400 mg/dL Blood 08/31/2024 8:12 AM CDT 08/31/2024 8:38 AM CDT Hermelindo Butler MD LAB BLOOD ORDER ELANA Final Result Performing Organization Address City/[facility] Co de Phone Number [facility] Department [place] [address] * (ABNORMAL) IgM (08/31/2024 8:12 AM CDT) Pathologist [facility] Immunoglobulin M <25(L) 40 - 230 mg/dL Blood 08/31/2024 8:12 AM CDT 08/31/2024 8:38 AM CDT Hermelindo Butler MD LAB BLOOD ORDER ELANA Final Result Performing Organization Address City/[facility] Co de Phone Number [facility] Department [place] [address] * (ABNORMAL) IgG (08/31/2024 8:12 AM CDT) Pathologist [facility] Immunoglobulin G <300(L) 700 - 1,600 mg/dL Blood 08/31/2024 8:12 AM CDT 08/31/2024 8:38 AM CDT Hermelindo Butler MD LAB BLOOD ORDER ELANA Final Result Performing Organization Address [facility] de Phone Number [facility] [place] [address] * (ABNORMAL) Comprehensive metabolic panel (08/31/2024 8:12 AM CDT) [facility] Sodium 141 135 - 145 mmol/L Potassium, pl 4.0 3.3 - 4.9 mmol/L [facility] Chloride 103 97 - 110 mmol/L [facility] CO2 29 22 - 32 mmol/L [facility] Anion gap 9 2 - 15 mmol/L [facility] BUN 31(H) 6 - 25 mg/dL [facility] Creatinine 1.61(H) 0.80 - 1.30 mg/dL [facility] Glucose 114 70 - 199 mg/dL [facility] Comment: Interpretive Data Fasting [...] Calcium 9.4 8.5 - 10.3 mg/dL [facility] Bilirubin, total 0.4 0.1 - 1.2 mg/dL [facility] Protein, pl 6.5 6.5 - 8.5 g/dL [facility] Albumin 4.1 3.5 - 5.0 g/dL [facility] Alk phos 65 40 - 130 Units/L [facility] ALT 16 7 - 55 Units/L [facility] AST 15 10 - 50 Units/L [facility] Blood 08/31/2024 8:12 AM CDT 08/31/2024 8:20 AM CDT Hermelindo Butler MD LAB BLOOD ORDER ELANA Final Result [facility] Department [place] [address] * SCAN - LABS (08/30/2024) us Provider [...] Inclusion of Race in Diagnosing Kidney Disease, MALIASN 2020). The CKD-EPI equation should not be used for patients with unstable renal function and has not been validated in children and those over 70. Current interpretive data was last reviewed 2021. Blood 08/26/2024 12:2 5 AM CDT 08/26/2024 12:35 AM CDT Karlos Hargrove MD LAB BLOOD ORDERABLES Final Result [facility] Department [place] [address] * (ABNORMAL) Differential, auto (08/26/2024 12:25 AM CDT) Neutrophil abs 5.3 1.5 - 6.5 K/cumm Imm gran abs 0.0 0.0 - 0.1 K/cumm [facility] Lymphocyte abs 0.7(L) 0.8 - 3.3 K/cumm [facility] Monocyte abs 0.6 0.2 - 0.8 K/cumm [facility] Eosinophil abs 0.3 0.0 - 0.5 K/cumm [facility] Basophil abs 0.0 0.0 - 0.1 K/cumm [facility] Neutrophil pct 75.7 % [facility] Comment: Interpretive Data Percent cell count reference ranges are not reported, since discordance with absolute values may lead to misinterpretation of CBC data. Current Interpretive Data was last revised on 2017. Imm gran pct 0.4 % [facility] Comment: Interpretive Data Percent cell count reference ranges are not reported, since discordance with absolute values may lead to misinterpretation of CBC data. Current Interpretive Data was last revised on 2017. Lymphocyte pct 10.4 % [facility] Comment: Interpretive Data Percent cell count reference ranges are not reported, since discordance with absolute values may lead to misinterpretation of CBC data. Current Interpretive Data was last revised on 2017. Monocyte pct 9.0 % [facility] Comment: Interpretive Data Percent cell count reference ranges are not reported, since discordance with absolute values may lead to misinterpretation of CBC data. Current Interpretive Data was last revised on 2017. Eosinophil pct 4.4 % [facility] Comment: Interpretive Data Percent cell count reference ranges are not reported, since discordance with absolute values may lead to misinterpretation of CBC data. Current Interpretive Data was last revised on 2017. Basophil pct 0.1 % [facility] Comment: Interpretive Data Percent cell count reference ranges are not reported, since discordance with absolute values may lead to misinterpretation of CBC data. Current Interpretive Data was last revised on 2017. Blood 08/26/2024 12:2 5 AM CDT 08/26/2024 12:35 AM CDT Karlos Hargrove MD LAB BLOOD ORDERABLES Final Result [facility] Department [place] [address] * (ABNORMAL) CBC with auto differential (08/26/2024 12:25 AM CDT) WBC 7.0 3.8 - 9.9 K/cumm Hgb 11.8(L) 13.0 - 17.5 g/dL [facility] Hct 35.7(L) 38.9 - 50.3 % [facility] Plt 131(L) 150 - 400 K/cumm [facility] MPV 9.2 9.1 - 12.3 fL [facility] RBC 3.83(L) 4.30 - 5.80 M/cumm [facility] MCV 93.2 81.3 - 96.4 fL [facility] MCH 30.8 27.1 - 33.3 pg [facility] MCHC 33.1 32.3 - 35.7 g/dL [facility] RDW CV 15.4(H) 11.1 - 14.9 % [facility] RDW SD 51.7(H) 35.7 - 48.1 fL [facility] NRBC abs 0.00 0.00 - 0.01 K/cumm [facility] Blood 08/26/2024 12:2 5 AM CDT 08/26/2024 12:35 AM CDT us Karlos Hargrove MD LAB BLOOD ORDERABLES Final Result Performing Organization Address [facility] Co de Phone Number [facility] [place] [address] * Type and screen (08/26/2024 12:25 AM CDT) Yehuda, indirect Negative Comment:Patient has previous antibody history ABO Rh A Positive [facility] Blood 08/26/2024 12:2 5 AM CDT 08/26/2024 12:38 AM CDT Narrative [facility] - 08/26/2024 2:23 AM CDT Has the patient had Daratumumab or Isatuximab in the past 6 months?->Unknown Karlos Hargrove MD LAB BLOOD BANK TEST ORDERA BLES Final Result Performing Organization Address [facility] Co de Phone Number [facility] [place] [address] * (ABNORMAL) Uric acid (08/26/2024 12:25 AM CDT) Uric acid 8.6(H) 3.0 - 8.0 mg/dL Blood 08/26/2024 12:2 5 AM CDT 08/26/2024 12:35 AM CDT Narrative [facility] - 08/26/2024 1:10 AM CDT Friday and only. Morning draw. . us Karlos Hargrove MD LAB BLOOD ORDERABLES Final Result Performing Organization Address City/[facility] Co de Phone Number [facility] [place] [address] * Phosphorus (08/26/2024 12:25 AM CDT) Phosphorus, pl 3.6 2.3 - 4.5 mg/dL Blood 08/26/2024 12:2 5 AM CDT 08/26/2024 12:35 AM CDT us Karlos Hargrove MD LAB BLOOD ORDERABLES Final Result Performing Organization Address City/[facility]/ZIP Co de Phone Number [facility] [place] [address] * Magnesium (08/26/2024 12:25 AM CDT) [facility] Magnesium 1.7 1.4 - 2.5 mg/dL Blood 08/26/2024 12:2 5 AM CDT 08/26/2024 12:35 AM CDT us Karlos Hargrove MD LAB BLOOD ORDERABLES Final Result Performing Organization Address [facility] Co de Phone Number [facility] [place] [address] * Lactate dehydrogenase (LD) (08/26/2024 12:25 AM CDT) [facility] Lactate dehydrogenase (LDH) 167 100 - 250 Units/L Blood 08/26/2024 12:2 5 AM CDT 08/26/2024 12:35 AM CDT Narrative [facility] - 08/26/2024 1:10 AM CDT Friday and only. Morning draw. us Karlos Hargrove MD LAB BLOOD ORDERABLES Final Result Performing Organization Address City/[facility] Co de Phone Number [facility] [place] [address] * (ABNORMAL) Comprehensive metabolic panel (08/26/2024 12:25 AM CDT) Sodium 148(H) 135 - 145 mmol/L Potassium, pl 3.4 3.3 - 4.9 mmol/L [facility] Chloride 108 97 - 110 mmol/L [facility] CO2 28 22 - 32 mmol/L [facility] Anion gap 12 2 - 15 mmol/L [facility] BUN 35(H) 6 - 25 mg/dL [facility] Creatinine 2.27(H) 0.80 - 1.30 mg/dL [facility] Glucose 107 70 - 199 mg/dL [facility] Comment: Interpretive Data Fasting [...] 2022. Calcium 8.9 8.5 - 10.3 mg/dL [facility] Bilirubin, total 0.6 0.1 - 1.2 mg/dL [facility] Protein, pl 5.9(L) 6.5 - 8.5 g/dL [facility] Albumin 3.7 3.5 - 5.0 g/dL [facility] Alk phos 60 40 - 130 Units/L [facility] ALT 15 7 - 55 Units/L [facility] AST 13 10 - 50 Units/L [facility] Blood 08/26/2024 12:2 5 AM CDT 08/26/2024 12:35 AM CDT Karlos Hargrove MD LAB BLOOD ORDERABLES Final Result [facility] [place] [address] * US Vein Duplex Lower Extremity Bilateral Complete (08/25/2024 9:30 AM CDT) Anatomical Region Laterality Modality Vascular Bilateral Ultrasound 08/25/2024 8:37 AM CDT Narrative 08/27/2024 11:10 AM CDT [facility] - Department of Vascular Surgery, Vascular Laboratory [address] [place] [id number] Lower Extremity Venous Ultrasound Report Patient Name: BUFFY VALLE B : 1950 (73y 8m) Study Date: 08/25/2024 8:37:41 AM Gender: M Tech: Location: [id number] Ref Provider: OLGA KEITH Quality: Adequate Order Provider: OLGA KEITH PROCEDURES: Vascular Report: Venous Duplex imaging was performed bilaterally in the lower extremities. The common femoral, femoral, popliteal, posterior tibial, peroneal veins were evaluated for patency, spontaneity and phasicity with Doppler, compression and augmentation maneuvers. Great saphenous vein proximal at the junction was evaluated with compression maneuvers. INDICATIONS: Localized edema. FINDINGS: Performing Plant Buyer: Farzana Owens RVT. Bilateral: Venous Doppler signals [...] above. Electronically Signed By: Cesar Cabello MD [facility] [phone] 08/27/2024 10:10:26 AM CDT Procedure Note Cesar Cabello MD - 08/27/2024 [facility] - Department of Vascular Surgery,Vascular Laboratory [address] [place] [address] Lower Extremity Venous Ultrasound Report Patient Name: BUFFY VALLECarl : 1950 (73y 8m) Study Date: 08/25/2024 8:37:41 AM Gender: M Tech: Location: [id number] Ref Provider: OLGA KEITH Quality: Adequate Order Provider: OLGA KEITH PROCEDURES: Vascular Report: Venous Duplex imaging was performed bilaterally in the lower extremities.The common femoral, femoral, popliteal, posterior tibial, peroneal veins wereevaluated for patency, spontaneity and phasicity with Doppler, compression and augmentationmaneuvers. Great saphenous vein proximal at the junction was evaluated with compressionmaneuvers. INDICATIONS: Localized edema. FINDINGS: Performing Plant Buyer: Farzana Owens RVT. Bilateral: Venous Doppler signals [...] above. Electronically Signed By: Cesar Cabello MD [facility] [phone] 08/27/2024 10:10:26 AM CDT us Olga Keith MD [facility] [place] PROCEDURES Final Result [...] Hargrove MD LAB BLOOD ORDERABLES Final Result [facility] Department [place] [address] * (ABNORMAL) Differential, auto (08/25/2024 12:34 AM CDT) Pathologist [facility] Neutrophil abs 5.2 1.5 - 6.5 K/cumm Imm gran abs 0.1 0.0 - 0.1 K/cumm [facility] Lymphocyte abs 0.5(L) 0.8 - 3.3 K/cumm [facility] Monocyte abs 0.5 0.2 - 0.8 K/cumm [facility] Eosinophil abs 0.4 0.0 - 0.5 K/cumm [facility] Basophil abs 0.0 0.0 - 0.1 K/cumm [facility] Neutrophil pct 77.6 % [facility] Comment: Interpretive Data Percent cell count reference ranges are not reported, since discordance with absolute values may lead to misinterpretation of CBC data. Current Interpretive Data was last revised on 2017. Imm gran pct 0.7 % [facility] Comment: Interpretive Data Percent cell count reference ranges are not reported, since discordance with absolute values may lead to misinterpretation of CBC data. Current Interpretive Data was last revised on 2017. Lymphocyte pct 7.9 % [facility] Comment: Interpretive Data Percent cell count reference ranges are not reported, since discordance with absolute values may lead to misinterpretation of CBC data. Current Interpretive Data was last revised on 2017. Monocyte pct 7.5 % [facility] Comment: Interpretive Data Percent cell count reference ranges are not reported, since discordance with absolute values may lead to misinterpretation of CBC data. Current Interpretive Data was last revised on 2017. Eosinophil pct 6.0 % [facility] Comment: Interpretive Data Percent cell count reference ranges are not reported, since discordance with absolute values may lead to misinterpretation of CBC data. Current Interpretive Data was last revised on 2017. Basophil pct 0.3 % [facility] Comment: Interpretive Data Percent cell count reference ranges are not reported, since discordance with absolute values may lead to misinterpretation of CBC data. Current Interpretive Data was last revised on 2017. Blood 08/25/2024 12:3 4 AM CDT 08/25/2024 12:57 AM CDT us Karlos Hargrove MD LAB BLOOD ORDERABLES Final Result [facility] Department [place] [address] * (ABNORMAL) CBC with auto differential (08/25/2024 12:34 AM CDT) WBC 6.7 3.8 - 9.9 K/cumm Hgb 11.2(L) 13.0 - 17.5 g/dL [facility] Hct 33.3(L) 38.9 - 50.3 % [facility] Plt 136(L) 150 - 400 K/cumm [facility] MPV 9.5 9.1 - 12.3 fL [facility] RBC 3.57(L) 4.30 - 5.80 M/cumm [facility] MCV 93.3 81.3 - 96.4 fL [facility] MCH 31.4 27.1 - 33.3 pg [facility] MCHC 33.6 32.3 - 35.7 g/dL [facility] RDW CV 15.3(H) 11.1 - 14.9 % [facility] RDW SD 51.0(H) 35.7 - 48.1 fL [facility] NRBC abs 0.00 0.00 - 0.01 K/cumm [facility] Blood 08/25/2024 12:3 4 AM CDT 08/25/2024 12:57 AM CDT us Karlos Hargrove MD LAB BLOOD ORDERABLES Final Result [facility] [place] [address] * Phosphorus (08/25/2024 12:34 AM CDT) Phosphorus, pl 3.7 2.3 - 4.5 mg/dL Blood 08/25/2024 12:3 4 AM CDT 08/25/2024 12:55 AM CDT us Karlos Hargrove MD LAB BLOOD ORDERABLES Final Result Performing Organization Address City/[facility] Co de Phone Number [facility] Department [place] [address] * Magnesium (08/25/2024 12:34 AM CDT) Magnesium 1.9 1.4 - 2.5 mg/dL Blood 08/25/2024 12:3 4 AM CDT 08/25/2024 12:55 AM CDT us Karlos Hargrove MD LAB BLOOD ORDERABLES Final Result [facility] Department [place] [address] * (ABNORMAL) Comprehensive metabolic panel (08/25/2024 12:34 AM CDT) Sodium 147(H) 135 - 145 mmol/L Potassium, pl 3.2(L) 3.3 - 4.9 mmol/L [facility] Chloride 109 97 - 110 mmol/L [facility] CO2 26 22 - 32 mmol/L [facility] Anion gap 12 2 - 15 mmol/L [facility] BUN 47(H) 6 - 25 mg/dL [facility] Creatinine 2.74(H) 0.80 - 1.30 mg/dL [facility] Glucose 154 70 - 199 mg/dL [facility] Comment: Interpretive Data Fasting [...] 2022. Calcium 8.4(L) 8.5 - 10.3 mg/dL [facility] Bilirubin, total 0.4 0.1 - 1.2 mg/dL [facility] Protein, pl 5.9(L) 6.5 - 8.5 g/dL [facility] Albumin 3.9 3.5 - 5.0 g/dL [facility] Alk phos 61 40 - 130 Units/L [facility] ALT 18 7 - 55 Units/L [facility] AST 17 10 - 50 Units/L [facility] Blood 08/25/2024 12:3 4 AM CDT 08/25/2024 12:55 AM CDT Karlos Hargrove MD LAB BLOOD ORDERABLES Final Result [facility] Department [place] [address] * Sodium, urine, random (08/24/2024 5:16 PM CDT) Sodium, ur 44 mmol/L Comment: Interpretive Data No reference range established. Current interpretive data was last revised 2018. Urine 08/24/2024 5:16 PM CDT 08/24/2024 5:31 PM CDT us Olga Keith MD LAB URINE ORDERABLES Final Resul t MT [facility] Department [place] [address] * CT Abdomen Pelvis WO Contrast (08/24/2024 [...] K/cumm [facility] Neutrophil pct 73.7 % [facility] Comment: Interpretive Data Percent cell count reference ranges are not reported, since discordance with absolute values may lead to misinterpretation of CBC data. Current Interpretive Data was last revised on 2017. Imm gran pct 0.6 % [facility] Comment: Interpretive Data Percent cell count reference ranges are not reported, since discordance with absolute values may lead to misinterpretation of CBC data. Current Interpretive Data was last revised on 2017. Lymphocyte pct 10.0 % [facility] Comment: Interpretive Data Percent cell count reference ranges are not reported, since discordance with absolute values may lead to misinterpretation of CBC data. Current Interpretive Data was last revised on 2017. Monocyte pct 8.3 % [facility] Comment: Interpretive Data Percent cell count reference ranges are not reported, since discordance with absolute values may lead to misinterpretation of CBC data. Current Interpretive Data was last revised on 2017. Eosinophil pct 7.1 % [facility] Comment: Interpretive Data Percent cell count reference ranges are not reported, since discordance with absolute values may lead to misinterpretation of CBC data. Current Interpretive Data was last revised on 2017. Basophil pct 0.3 % [facility] Comment: Interpretive Data Percent cell count reference ranges are not reported, since discordance with absolute values may lead to misinterpretation of CBC data. Current Interpretive Data was last revised on 2017. Blood 08/24/2024 2:30 AM CDT 08/24/2024 1:28 AM CDT Karlos Hargrove MD LAB BLOOD ORDERABLES Final Result [facility] Department [place] [address] * (ABNORMAL) CBC with auto differential (08/24/2024 2:30 AM CDT) WBC 6.6 3.8 - 9.9 K/cumm Hgb 10.9(L) 13.0 - 17.5 g/dL [facility] Hct 33.1(L) 38.9 - 50.3 % [facility] Plt 130(L) 150 - 400 K/cumm [facility] MPV 10.0 9.1 - 12.3 fL [facility] RBC 3.50(L) 4.30 - 5.80 M/cumm [facility] MCV 94.6 81.3 - 96.4 fL [facility] MCH 31.1 27.1 - 33.3 pg [facility] MCHC 32.9 32.3 - 35.7 g/dL [facility] RDW CV 15.3(H) 11.1 - 14.9 % [facility] RDW SD 51.8(H) 35.7 - 48.1 fL [facility] NRBC abs 0.00 0.00 - 0.01 K/cumm [facility] Blood 08/24/2024 2:30 AM CDT 08/24/2024 1:28 AM CDT Karlos Hargrove MD LAB BLOOD ORDERABLES Final Result Performing Organization Address City/[facility] Co de Phone Number [facility] [place] [address] * (ABNORMAL) eGFR (08/24/2024 1:12 AM CDT) [...] City/[facility]/ZIP Co de Phone Number [facility] [place] [address] * aPTT (08/24/2024 1:12 AM CDT) aPTT [...] BLOOD ORDERABLES Final Result Performing Organization Address [facility] de Phone Number [facility] [place] [address] * Protime-INR (08/24/2024 1:12 AM CDT) PT 11.7 9.7 - 13.0 sec INR 1.08 0.90 - 1.20 [facility] Comment: Interpretive data Oral anticoagulant therapeutic ranges: Venous thromboembolism prophylaxis or treatment: 2.0-3.0 CARDIOLOGY Standard range: 2.0-3.0 High-intensity range: 2.5-3.5 Refer to indication-specific guidelines for appropriate target ranges for prosthetic heart valve replacement. Current interpretive data was last revised on 2019. Blood 08/24/2024 1:12 AM CDT 08/24/2024 1:53 AM CDT Result [facility] Karlos Hargrove MD LAB BLOOD ORDERABLES Final Result Performing Organization Address [facility] Co de Phone Number [facility] [place] [address] * Type and screen (08/24/2024 1:12 AM CDT) Yehuda, indirect Negative Comment:Patient has previous antibody history ABO Rh A Positive [facility] Blood 08/24/2024 1:12 AM CDT 08/24/2024 1:36 AM CDT Narrative [facility] - 08/24/2024 2:36 AM CDT Has the patient had Daratumumab or Isatuximab in the past 6 months?->Unknown us Karlos Hargrove MD LAB BLOOD BANK TEST ORDERA BLES Final Result Performing Organization Address City/[facility]/ZIP Co de Phone Number [facility] [place] [address] * (ABNORMAL) Uric acid (08/24/2024 1:12 AM CDT) Uric acid 9.5(H) 3.0 - 8.0 mg/dL Blood 08/24/2024 1:12 AM CDT 08/24/2024 1:35 AM CDT Narrative [facility] - 08/24/2024 2:47 AM CDT Friday and only. Morning draw. . us Karlos Hargrove MD LAB BLOOD ORDERABLES Final Result Performing Organization Address [facility] Co de [place] [address] * Phosphorus (08/24/2024 1:12 AM CDT) Phosphorus, pl 4.5 2.3 - 4.5 mg/dL Blood 08/24/2024 1:12 AM CDT 08/24/2024 1:35 AM CDT us Karlos Hargrove MD LAB BLOOD ORDERABLES Final Result Performing Organization Address City/[facility] Co de Phone [place] [address] * Magnesium (08/24/2024 1:12 AM CDT) Magnesium 2.0 1.4 - 2.5 mg/dL Blood 08/24/2024 1:12 AM CDT 08/24/2024 1:35 AM CDT Karlos Hargrove MD LAB BLOOD ORDERABLES Final Result Performing Organization Address City/[facility] Co de Phone Number [facility] Department [place] [address] * Lactate dehydrogenase (LD) (08/24/2024 1:12 AM CDT) [facility] Lactate dehydrogenase (LDH) 226 100 - 250 Units/L Blood 08/24/2024 1:12 AM CDT 08/24/2024 1:35 AM CDT Narrative [facility] - 08/24/2024 2:47 AM CDT Friday and only. Morning draw. Karlos Hargrove MD LAB BLOOD ORDERABLES Final Result Performing Organization Address [facility]/[place] de Phone Number [facility] Department [place] [address] * (ABNORMAL) Comprehensive metabolic panel (08/24/2024 1:12 AM CDT) [facility] Sodium 148(H) 135 - 145 mmol/L Potassium, pl 3.6 3.3 - 4.9 mmol/L [facility] Chloride 111(H) 97 - 110 mmol/L [facility] CO2 25 22 - 32 mmol/L [facility] Anion gap 12 2 - 15 mmol/L [facility] BUN 56(H) 6 - 25 mg/dL [facility] Creatinine 3.16(H) 0.80 - 1.30 mg/dL [facility] Glucose 102 70 - 199 mg/dL [facility] Comment: Interpretive Data Fasting [...] Calcium 8.5 8.5 - 10.3 mg/dL [facility] Bilirubin, total 0.4 0.1 - 1.2 mg/dL [facility] Protein, pl 5.7(L) 6.5 - 8.5 g/dL [facility] Albumin 3.6 3.5 - 5.0 g/dL [facility] Alk phos 62 40 - 130 Units/L [facility] ALT 16 7 - 55 Units/L [facility] AST 11 10 - 50 Units/L [facility] Blood 08/24/2024 1:12 AM CDT 08/24/2024 1:35 AM CDT us Karlos Hargrove MD LAB BLOOD ORDERABLES Final Result [facility] Department [place] [address] * US Kidney Complete (08/23/2024 8:12 PM [...] gravity, ur 1.011 1.003 - 1.030 [facility] pH, urine 5.5 [facility] Comment: Interpretive Data U rine pH is affected by diet, medications, systemic acid-base disturbances, and renal tubular function. pH may affect urinary stone formation. For example, urine pH below 6.0 may help reduce the tendency for calcium phosphate stones and pH greater than 6.0 may reduce the tendency for uric acid stone formation. Source: [facility] [facility] Current Interpretive Data was last revised on 2017 Protein, ur ql Negative Negative [facility] Glucose, ur ql Negative Negative [facility] Ketones, ur Negative Negative [facility] Bilirubin, ur Negative Negative [facility] Blood, ur 2+(A) Negative [facility] Urobilinogen, ur <2.0 <2.0 mg/dL [facility] Nitrite, ur Negative Negative [facility] Leukocyte esterase, ur Trace(A) Negative [facility] UA reflex comment Reflex to microscopic UA will be performed. [facility] Urine 08/23/2024 7:01 PM CDT 08/23/2024 7:15 PM CDT Kinga Jones [employer] LAB URINE ORDERABLES Angeles l Result Performing Organization Address [facility] de Phone Number [facility] [place] [address] * Protein / creatinine ratio, urine, random (08/23/2024 7:01 PM CDT) Protein, ur, quant 6.4 mg/dL Comment: Interpretive Data No reference range established. Current interpretive data was last revised 2018. Creatinine Ur 74.0 mg/dL [facility] Comment: Interpretive Data No reference range established. Current interpretive data was last revised 2018. Protein/creatinin e ratio 86.5 0.0 - 180.0 mg/g CR [facility] Urine 08/23/2024 7:01 PM CDT 08/23/2024 7:28 PM CDT Kinga Jones [employer] LAB URINE ORDERABLES [place] l Result Performing Organization Address [facility] de Phone Number [facility] Department [place] [address] * (ABNORMAL) Urinalysis, microscopic only (08/23/2024 7:01 PM CDT) WBC, ur 0-5 0 - 5 /HPF RBC, ur 6-10(A) 0 - 2 /HPF [facility] Urine 08/23/2024 7:01 PM CDT 08/23/2024 7:15 PM CDT us Kinga Jones NP LAB URINE ORDERABLES [place] l Result Performing Organization Address [facility] Co de Phone Number [facility] [place] [address] * Urine culture Urine, clean voided (08/23/2024 7:01 PM CDT) Pathologist [facility] Report Final Report: Less than 100,000 colonies/mL (clinically insignificant growth based on current clinical standards) Organism (CLINICALLY INSIGNIFICANT GROWTH [facility] Urine, clean voided 08/23/2024 7:01 PM CDT 08/23/2024 8:52 PM CDT Narrative [facility] - 08/25/2024 8:02 AM CDT Indications for Culture:->Other (specify) Other Indication:->elevated creatinine Specimen received in a sterile container. Testing performed by [facility] ([phone]) Kinga Jones NP LAB MICROBIOLOGY - GENERA L ORDERABLES Final Result Performing Organization Address [facility] Co de Phone Number [facility] [place] [address] * Immunotyping, serum with interpretation (08/23/2024 6:04 PM CDT) [facility] Immunosubtraction Please see comment Comment: NO PARAPROTEIN DETECTED Reviewed and signed by Fernando Nunez MD, PhD 08/24/2024 Blood 08/23/2024 6:04 PM CDT 08/23/2024 6:13 PM CDT Hermelindo Butler MD LAB BLOOD ORDER ELANA Final Result Performing Organization Address City/[facility] Co de Phone Number [facility] [place] [address] * (ABNORMAL) eGFR (08/23/2024 6:04 PM CDT) [facility] eGFR 19(L) >=60 mL/min/1. 73 m2 Comment: [...] MD LAB BLOOD ORDER ELANA Final Result [facility] Department [place] [address] * (ABNORMAL) Differential, auto (08/23/2024 6:04 PM CDT) [facility] Neutrophil abs 6.5 1.5 - 6.5 K/cumm Imm gran abs 0.0 0.0 - 0.1 K/cumm [facility] Lymphocyte abs 0.7(L) 0.8 - 3.3 K/cumm [facility] Monocyte abs 0.6 0.2 - 0.8 K/cumm [facility] Eosinophil abs 0.6(H) 0.0 - 0.5 K/cumm [facility] Basophil abs 0.0 0.0 - 0.1 K/cumm [facility] Neutrophil pct 77.0 % [facility] Comment: Interpretive Data Percent cell count reference ranges are not reported, since discordance with absolute values may lead to misinterpretation of CBC data. Current Interpretive Data was last revised on 2017. Imm gran pct 0.5 % [facility] Comment: Interpretive Data Percent cell count reference ranges are not reported, since discordance with absolute values may lead to misinterpretation of CBC data. Current Interpretive Data was last revised on 2017. Lymphocyte pct 8.3 % [facility] Comment: Interpretive Data Percent cell count reference ranges are not reported, since discordance with absolute values may lead to misinterpretation of CBC data. Current Interpretive Data was last revised on 2017. Monocyte pct 7.3 % [facility] Comment: Interpretive Data Percent cell count reference ranges are not reported, since discordance with absolute values may lead to misinterpretation of CBC data. Current Interpretive Data was last revised on 2017. Eosinophil pct 6.5 % [facility] Comment: Interpretive Data Percent cell count reference ranges are not reported, since discordance with absolute values may lead to misinterpretation of CBC data. Current Interpretive Data was last revised on 2017. Basophil pct 0.4 % [facility] Comment: Interpretive Data Percent cell count reference ranges are not reported, since discordance with absolute values may lead to misinterpretation of CBC data. Current Interpretive Data was last revised on 2017. Blood 08/23/2024 6:0 4 PM CDT 08/23/2024 6:12 PM CDT Hermelindo Butler MD LAB BLOOD ORDER ELANA Final Result [facility] Department [place] [address] * (ABNORMAL) Immunoglobulin free light chains (08/23/2024 6:04 PM CDT) Braddock/Lambda ratio [facility] <0.40 0.26 - 1.65 Comment: Interpretive Data The Binding Site FreeLite assay procedure was used. Results from different manufacturers or methods may not be comparable. Serial testing should be performed using the same methods and instrumentation. Current Interpretive Data was last revised on 2023. Braddock free light chain [facility] <0.06(L) 0.33 - 1.94 mg/dL [facility] Comment: Interpretive Data The Binding Site FreeLite assay procedure was used. Results from different manufacturers or methods may not be comparable. Serial testing should be performed using the same methods and instrumentation. Current Interpretive Data was last revised on 2023. Lambda free light chain [facility] 0.15(L) 0.57 - 2.63 mg/dL [facility] Comment: Interpretive Data The Binding Site FreeLite assay procedure was used. Results from different manufacturers or methods may not be comparable. Serial testing should be performed using the same methods and instrumentation. Current Interpretive Data was last revised on 2023. Blood 08/23/2024 6:04 PM CDT 08/23/2024 6:12 PM CDT Hermelindo Butler MD LAB BLOOD ORDER ELANA Final Result [facility] Department [place] [address] * (ABNORMAL) CBC with auto differential (08/23/2024 6:04 PM CDT) WBC 8.5 3.8 - 9.9 K/cumm Hgb 11.8(L) 13.0 - 17.5 g/dL [facility] Hct 35.6(L) 38.9 - 50.3 % [facility] Plt 131(L) 150 - 400 K/cumm [facility] MPV 9.8 9.1 - 12.3 fL [facility] RBC 3.78(L) 4.30 - 5.80 M/cumm [facility] MCV 94.2 81.3 - 96.4 fL [facility] MCH 31.2 27.1 - 33.3 pg [facility] MCHC 33.1 32.3 - 35.7 g/dL [facility] RDW CV 15.2(H) 11.1 - 14.9 % [facility] RDW SD 51.2(H) 35.7 - 48.1 fL [facility] NRBC abs 0.00 0.00 - 0.01 K/cumm [facility] Blood 08/23/2024 6:04 PM CDT 08/23/2024 6:12 PM CDT Hermelindo Butler MD LAB BLOOD ORDER ELANA Final Result [facility] Department [place] [address] * (ABNORMAL) Uric acid (08/23/2024 6:04 PM CDT) [facility] Uric acid 9.5(H) 3.0 - 8.0 mg/dL Blood 08/23/2024 6:04 PM CDT 08/23/2024 6:13 PM CDT Hermelindo Butler MD LAB BLOOD ORDER ELANA Final Result Performing Organization Address City/[facility] Co de Phone Number [facility] Department [place] [address] * (ABNORMAL) Protein electrophoresis with reflex, serum with interpretation (08/23/2024 6:04 PM CDT) Pathologist [facility] Protein, sr 5.9(L) 6.2 - 8.2 g/dL Albumin 3.9 3.2 - 5.0 g/dL [facility] Alpha-1 globulin 0.4 0.2 - 0.4 g/dL [facility] Alpha-2 globulin 0.7 0.5 - 1.0 g/dL [facility] Beta-1 globulin 0.4 0.3 - 0.6 g/dL [facility] Beta-2 globulin 0.3 0.2 - 0.6 g/dL [facility] Gamma globulin 0.2(L) 0.5 - 1.7 g/dL [facility] SPEP interp Please see comment [facility] Comment: No apparent monoclonal peak Decreased gamma globulins Electrophoretic pattern appears similar to previous sample 08/04/24 See immunotyping for further information Reviewed and signed by Fernando Nunez MD, PhD 08/24/2024 Blood 08/23/2024 6:04 PM CDT 08/23/2024 6:13 PM CDT Hermelindo Butler MD LAB BLOOD ORDER ELANA Final Result Performing Organization Address City/[facility] Co de Phone Number [facility] Department [place] [address] * (ABNORMAL) Phosphorus (08/23/2024 6:04 PM CDT) [facility] Phosphorus, pl 4.7(H) 2.3 - 4.5 mg/dL Blood 08/23/2024 6:04 PM CDT 08/23/2024 6:13 PM CDT Hermelindo Butler MD LAB BLOOD ORDER ELANA Final Result Performing Organization Address City/[facility]/[place] de Phone Number [facility] Department [place] [address] * Magnesium (08/23/2024 6:04 PM CDT) [facility] Magnesium 1.9 1.4 - 2.5 mg/dL Blood 08/23/2024 6:04 PM CDT 08/23/2024 6:13 PM CDT Hermelindo Butler MD LAB BLOOD ORDER ELANA Final Result Performing Organization Address City/[facility] Co de Phone Number [facility] [place] [address] * Lactate dehydrogenase (LD) (08/23/2024 6:04 PM CDT) [facility] Lactate dehydrogenase (LDH) 198 100 - 250 Units/L Blood 08/23/2024 6:04 PM CDT 08/23/2024 6:13 PM CDT Hermelindo Butler MD LAB BLOOD ORDER ELANA Final Result Performing Organization Address City/[facility] Co de Phone Number [facility] [place] [address] * (ABNORMAL) IgA (08/23/2024 6:04 PM CDT) Pathologist [facility] Immunoglobulin A <50(L) 70 - 400 mg/dL Blood 08/23/2024 6:04 PM CDT 08/23/2024 6:13 PM CDT Hermelindo Butler MD LAB BLOOD ORDER ELANA Final Result Performing Organization Address [facility]/[place] de Phone Number [facility] [place] [address] * (ABNORMAL) IgM (08/23/2024 6:04 PM CDT) [facility] Immunoglobulin M <25(L) 40 - 230 mg/dL Blood 08/23/2024 6:04 PM CDT 08/23/2024 6:13 PM CDT Hermelindo Butler MD LAB BLOOD ORDER ELANA Final Result Performing Organization Address City/[facility]/[place] de Phone Number [facility] [place] [address] * (ABNORMAL) IgG (08/23/2024 6:04 PM CDT) Pathologist [facility] Immunoglobulin G <300(L) 700 - 1,600 mg/dL Blood 08/23/2024 6:04 PM CDT 08/23/2024 6:13 PM CDT us Hermelindo Butler MD LAB BLOOD ORDER ELANA Final Result [facility] Department [place] [address] * (ABNORMAL) Comprehensive metabolic panel (08/23/2024 6:04 PM CDT) Sodium 146(H) 135 - 145 mmol/L Potassium, pl 3.8 3.3 - 4.9 mmol/L [facility] Chloride 107 97 - 110 mmol/L [facility] CO2 26 22 - 32 mmol/L [facility] Anion gap 13 2 - 15 mmol/L [facility] BUN 58(H) 6 - 25 mg/dL [facility] Creatinine 3.37(H) 0.80 - 1.30 mg/dL [facility] Glucose 89 70 - 199 mg/dL [facility] Comment: Interpretive Data Fasting [...] Calcium 8.9 8.5 - 10.3 mg/dL [facility] Bilirubin, total 0.4 0.1 - 1.2 mg/dL [facility] Protein, pl 6.2(L) 6.5 - 8.5 g/dL [facility] Albumin 4.0 3.5 - 5.0 g/dL [facility] Alk phos 68 40 - 130 Units/L [facility] ALT 16 7 - 55 Units/L [facility] AST 12 10 - 50 Units/L [facility] Blood 08/23/2024 6:04 PM CDT 08/23/2024 6:13 PM CDT us Hermelindo Butler MD LAB BLOOD ORDER ELANA Final Result [facility] Department [place] [address] * SCAN - LABS (08/20/2024) us Provider Scanning Final Result * SCAN - LABS (08/10/2024) us Provider Scanning Final Result * US Kidney Complete (08/06/2024 2:42 PM LUNCH COOK) Anatomical Region Laterality Modality Kidney N/A Ultrasound 08/06/2024 3:27 PM LUNCH COOK Impressions 08/06/2024 3:27 PM LUNCH COOK 1. Mild nephromegaly with mild to moderate hydronephrosis bilaterally. 2. Incomplete bladder emptying with post void bladder residual of 397 mL. Electronically signed by: Dylan Tinajero M.D. Narrative 08/06/2024 3:27 PM LUNCH COOK EXAMINATION: COMPLETE RENAL SONOGRAM HISTORY: Rising creatinine. [...] Urinalysis reflex to microscopic (08/06/2024 9:19 AM LUNCH COOK) Color, ur Straw Yellow Clarity, ur Clear Clear [facility] Specific gravity, ur 1.013 1.003 - 1.030 [facility] pH, urine 5.5 [facility] Comment: Interpretive Data U rine pH is affected by diet, medications, systemic acid-base disturbances, and renal tubular function. pH may affect urinary stone formation. For example, urine pH below 6.0 may help reduce the tendency for calcium phosphate stones and pH greater than 6.0 may reduce the tendency for uric acid stone formation. Source: [facility] Current Interpretive Data was last revised on 2017 Protein, ur ql Negative Negative [facility] Glucose, ur ql Negative Negative [facility] Ketones, ur Negative Negative [facility] Bilirubin, ur Negative Negative [facility] Blood, ur 3+(A) Negative [facility] Urobilinogen, ur <2.0 <2.0 mg/dL [facility] Nitrite, ur Negative Negative [facility] Leukocyte esterase, ur Trace(A) [facility] UA reflex comment Reflex to microscopic UA will be performed. [facility] Urine 08/06/2024 9:19 AM LUNCH COOK 08/06/2024 9:19 AM LUNCH COOK Lyndsey Fagan NP LAB URINE ORDERABLES Angeles nicole Result [facility] Department [place] [address] * Protein / creatinine ratio, urine, random (08/06/2024 9:19 AM LUNCH COOK) Pathologist [facility] Protein, ur, quant 7.9 mg/dL Comment: Interpretive Data No reference range established. Current interpretive data was last revised 2018. Creatinine Ur 77.4 mg/dL [facility] Comment: Interpretive Data No reference range established. Current interpretive data was last revised 2018. Protein/creatinin e ratio 102.1 0.0 - 180.0 mg/g CR [facility] Urine 08/06/2024 9:19 AM LUNCH COOK 08/06/2024 9:41 AM LUNCH COOK Lyndsey Fagan LAB URINE ORDERABLES Angeles l Result Performing Organization Address [facility] Co de Phone Number [facility] [place] [address] * (ABNORMAL) Urinalysis, microscopic only (08/06/2024 9:19 AM LUNCH COOK) Pathologist [facility] WBC, ur 6-10(A) 0 - 5 /HPF RBC, ur 21-50(A) 0 - 2 /HPF [facility] Bacteria, ur Trace(A) [facility] Mucous, ur Present(A) [facility] Urine 08/06/2024 9:19 AM LUNCH COOK 08/06/2024 9:19 AM LUNCH COOK Lyndsey Fagan [employer] LAB URINE ORDERABLES Angeles l Result Performing Organization Address City/[facility] Co de Phone Number [facility] [place] [address] * (ABNORMAL) eGFR (08/06/2024 7:43 AM LUNCH COOK) Pathologist [facility] eGFR 31(L) >=60 mL/min/1. 73 m2 Comment: [...] last reviewed 2021. Blood 08/06/2024 7:43 AM LUNCH COOK 08/06/2024 7:52 AM LUNCH COOK Hermelindo Butler MD LAB BLOOD ORDER ELANA Final Result [facility] Department [place] [address] * (ABNORMAL) Differential, auto (08/06/2024 7:43 AM LUNCH COOK) Neutrophil abs 5.4 1.5 - 6.5 K/cumm Comment:Testing performed by : [facility], [address] [place] [phone] Lymphocyte abs 0.8 0.8 - 3.3 K/cumm [facility] Comment:Testing performed by : [facility], [address] [place] [phone] Monocyte abs 0.5 0.2 - 0.8 K/cumm [facility] Comment:Testing performed by : [facility], [address] [place] [phone] Eosinophil abs 0.7(H) 0.0 - 0.5 K/cumm [facility] Comment:Testing performed by : [facility], [address] [place] [phone] Basophil abs 0.0 0.0 - 0.1 K/cumm [facility] Comment:Testing performed by : [facility], [address] [place] [address] Neutrophil pct 72.4 % [facility] Comment: Interpretive Data Percent cell count reference ranges are not reported, since discordance with absolute values may lead to misinterpretation of CBC data. Current Interpretive Data was last revised on 2017. Testing performed by: [facility], [address] [place] [address] Lymphocyte pct 10.4 % [facility] Comment: Interpretive Data Percent cell count reference ranges are not reported, since discordance with absolute values may lead to misinterpretation of CBC data. Current Interpretive Data was last revised on 2017. Testing performed by: [facility], [address] [place] [address] Monocyte pct 7.3 % [facility] Comment: Interpretive Data Percent cell count reference ranges are not reported, since discordance with absolute values may lead to misinterpretation of CBC data. Current Interpretive Data was last revised on 2017. Testing performed by: [facility], [address] [place], [place] [id number] Eosinophil pct 9.4 % [facility] Comment: Interpretive Data Percent cell count reference ranges are not reported, since discordance with absolute values may lead to misinterpretation of CBC data. Current Interpretive Data was last revised on 2017. Testing performed by: [facility], [address] [place] [phone] Basophil pct 0.5 % [facility] Comment: Interpretive Data Percent cell count reference ranges are not reported, since discordance with absolute values may lead to misinterpretation of CBC data. Current Interpretive Data was last revised on 2017. Testing performed by: [facility], [address] [place] [phone] Blood 08/06/2024 7:43 AM LUNCH COOK 08/06/2024 7:51 AM LUNCH COOK us Hermelindo Butler MD LAB BLOOD ORDER ELANA Final Result [facility] Department [place] [address] * (ABNORMAL) CBC with auto differential (08/06/2024 7:43 AM LUNCH COOK) WBC 7.5 3.8 - 9.9 K/cumm Comment:Testing performed by : [facility], [address] [place] [address] Hgb 13.7 13.0 - 17.5 g/dL [facility] Comment:Testing performed by : [facility], [address] [place] [address] Hct 40.6 38.9 - 50.3 % [facility] Comment:Testing performed by : [facility], [address] [place] [address] Plt 169 150 - 400 K/cumm [facility] Comment:Testing performed by : [facility], [address] [place] [address] MPV 7.5 6.8 - 10.4 fL [facility] Comment:Testing performed by : [facility], [address] [place] [address] RBC 4.37 4.30 - 5.80 M/cumm [facility] Comment:Testing performed by : [facility], [address] [place] [address] MCV 92.7 81.3 - 96.4 fL [facility] Comment:Testing performed by : [facility], [address] [place] [address] MCH 31.3 27.1 - 33.3 pg [facility] Comment:Testing performed by : [facility], [address] [place] [address] MCHC 33.8 32.3 - 35.7 g/dL [facility] Comment:Testing performed by : [facility], [address] [place] [phone] RDW CV 16.5(H) 11.1 - 14.9 % [facility] Comment:Testing performed by : [facility], [address] [place] [phone] NRBC abs 0.00 0.00 - 0.01 K/cumm [facility] Comment:Testing performed by : [facility], [address] [place] [phone] Blood 08/06/2024 7:43 AM LUNCH COOK 08/06/2024 7:51 AM LUNCH COOK Hermelindo Butler MD LAB BLOOD ORDER ELANA Final Result Performing Organization Address City/[facility] Co de Phone Number [facility] Department [place] [address] * (ABNORMAL) PSA diagnostic (08/06/2024 7:43 AM LUNCH COOK) PSA-Total 6.28(H) <=6.20 ng/mL Comment: Interpretive Data [...] last revised 21. Blood 08/06/2024 7:43 AM LUNCH COOK 08/06/2024 7:52 AM LUNCH COOK Hermelindo Butler MD LAB BLOOD ORDER ELANA Final Result Performing Organization Address City/[facility] Co de Phone Number [facility] [place] [address] * Lactate dehydrogenase (LD) (08/06/2024 7:43 AM LUNCH COOK) Lactate dehydrogenase (LDH) 161 100 - 250 Units/L Blood 08/06/2024 7:43 AM LUNCH COOK 08/06/2024 7:52 AM LUNCH COOK us Hermelindo Butler MD LAB BLOOD ORDER ELANA Final Result [facility] Department [place] [address] * (ABNORMAL) Lipid panel (08/06/2024 7:43 AM LUNCH COOK) Cholesterol 128 30 - 199 mg/dL Comment: [...] revised on 2018. Triglycerides 149 <=149 mg/dL [facility] Comment: Interpretive Data Ages < [...] on 2018. HDL 38(L) >=40 mg/dL [facility] Comment: Interpretive Data Ages < [...] 2018. LDL, calculated 64 <=129 mg/dL [facility] Comment: Interpretive Data Ages < [...] revised on 2024. Non-HDL Cholesterol 90 mg/dL [facility] Comment: Interpretive Data Ages < [...] last revised on 2018. Chol/HDL ratio 3 [facility] Blood 08/06/2024 7:43 AM LUNCH COOK 08/06/2024 7:52 AM LUNCH COOK Hermelindo Butler MD LAB BLOOD ORDER ELANA Final Result [facility] Department [place] [address] * (ABNORMAL) Comprehensive metabolic panel (08/06/2024 7:43 AM LUNCH COOK) Sodium 145 135 - 145 mmol/L Potassium, pl 4.2 3.3 - 4.9 mmol/L [facility] Chloride 108 97 - 110 mmol/L [facility] CO2 30 22 - 32 mmol/L [facility] Anion gap 7 2 - 15 mmol/L [facility] BUN 51(H) 6 - 25 mg/dL [facility] Creatinine 2.21(H) 0.80 - 1.30 mg/dL [facility] Glucose 113 70 - 199 mg/dL [facility] Comment: Interpretive Data Fasting [...] 2022. Calcium 9.2 8.5 - 10.3 mg/dL [facility] Bilirubin, total 0.5 0.1 - 1.2 mg/dL [facility] Protein, pl 6.2(L) 6.5 - 8.5 g/dL [facility] Albumin 4.1 3.5 - 5.0 g/dL [facility] Alk phos 61 40 - 130 Units/L [facility] ALT 15 7 - 55 Units/L [facility] AST 16 10 - 50 Units/L [facility] Blood 08/06/2024 7:43 AM LUNCH COOK 08/06/2024 7:52 AM LUNCH COOK us Hermelindo Butler MD LAB BLOOD ORDER ELANA Final Result Performing Organization Address City/[facility] Co de Phone Number [facility] [place] [address] * aPTT (08/03/2024 9:21 AM LUNCH COOK) aPTT 31 28 - 38 sec Comment: Interpretive Data Heparin therapeutic range: 66.0 - 100.0 seconds. Range based on correlation with therapeutic heparin activity range of 0.3 - 0.7 Units/mL. Current interpretive data was last revised on 2023. Blood 08/03/2024 9:21 AM LUNCH COOK 08/03/2024 9:47 AM LUNCH COOK Hermelindo Butler MD LAB BLOOD ORDER ELANA Final Result Performing Organization Address [facility] de Phone Number [facility] [place] [address] * Protime-INR (08/03/2024 9:21 AM LUNCH COOK) PT 11.5 9.7 - 13.0 sec INR 1.06 0.90 - 1.20 [facility] Comment: Interpretive data Oral anticoagulant therapeutic ranges: Venous thromboembolism prophylaxis or treatment: 2.0-3.0 CARDIOLOGY Standard range: 2.0-3.0 High-intensity range: 2.5-3.5 Refer to indication-specific guidelines for appropriate target ranges for prosthetic heart valve replacement. Current interpretive data was last revised on 2019. Blood 08/03/2024 9:21 AM LUNCH COOK 08/03/2024 9:47 AM LUNCH COOK Hermelindo Butler MD LAB BLOOD ORDER ELANA Final Result Performing Organization Address [facility] de Phone Number [facility] [place] [address] * Immunotyping, serum with interpretation (08/03/2024 7:40 AM LUNCH COOK) Immunosubtraction Please see comment Comment: NO PARAPROTEIN DETECTED Reviewed and signed by Hermelindo Mcnulty MD 08/04/2024 Blood 08/03/2024 7:40 AM LUNCH COOK 08/03/2024 8:24 AM LUNCH COOK Hermelindo Butler MD LAB BLOOD ORDER ELANA Final Result Performing Organization Address City/[facility]/ZIP Co de Phone Number [facility] Department [place] [address] * (ABNORMAL) eGFR (08/03/2024 7:40 AM LUNCH COOK) Pathologist [facility] eGFR 37(L) >=60 mL/min/1. 73 m2 Comment: [...] last reviewed 2021. Blood 08/03/2024 7:40 AM LUNCH COOK 08/03/2024 7:49 AM LUNCH COOK Hermelindo Butler MD LAB BLOOD ORDER ELANA Final Result [facility] Department [place] [address] * (ABNORMAL) Differential, auto (08/03/2024 7:40 AM LUNCH COOK) Neutrophil abs 5.6 1.5 - 6.5 K/cumm Comment:Testing performed by : [facility], [address] [place] [phone] Lymphocyte abs 0.9 0.8 - 3.3 K/cumm [facility] Comment:Testing performed by : [facility], [address] [place] [phone] Monocyte abs 0.6 0.2 - 0.8 K/cumm [facility] Comment:Testing performed by : [facility], [address] [place], [place] [phone] Eosinophil abs 0.8(H) 0.0 - 0.5 K/cumm [facility] Comment:Testing performed by : [facility], [address] [place] [phone] Basophil abs 0.0 0.0 - 0.1 K/cumm [facility] Comment:Testing performed by : [facility], [address] [place] [phone] Neutrophil pct 70.4 % [facility] Comment: Interpretive Data Percent cell count reference ranges are not reported, since discordance with absolute values may lead to misinterpretation of CBC data. Current Interpretive Data was last revised on 2017. Testing performed by: [facility], [address] [place] [phone] Lymphocyte pct 11.2 % [facility] Comment: Interpretive Data Percent cell count reference ranges are not reported, since discordance with absolute values may lead to misinterpretation of CBC data. Current Interpretive Data was last revised on 2017. Testing performed by: [facility], [address] [place] [phone] Monocyte pct 7.7 % [facility] Comment: Interpretive Data Percent cell count reference ranges are not reported, since discordance with absolute values may lead to misinterpretation of CBC data. Current Interpretive Data was last revised on 2017. Testing performed by: [facility], [address] [place] [phone] Eosinophil pct 10.1 % [facility] Comment: Interpretive Data Percent cell count reference ranges are not reported, since discordance with absolute values may lead to misinterpretation of CBC data. Current Interpretive Data was last revised on 2017. Testing performed by: [facility], [address] [place] [phone] Basophil pct 0.6 % [facility] Comment: Interpretive Data Percent cell count reference ranges are not reported, since discordance with absolute values may lead to misinterpretation of CBC data. Current Interpretive Data was last revised on 2017. Testing performed by: [facility], [address] [place] [phone] Blood 08/03/2024 7:40 AM LUNCH COOK 08/03/2024 7:47 AM LUNCH COOK Hermelindo Butler MD LAB BLOOD ORDER ELANA Final Result [facility] Department [place] [address] * (ABNORMAL) Immunoglobulin free light chains (08/03/2024 7:40 AM LUNCH COOK) Braddock/Lambda ratio BJ See Comment 0.26 - 1.65 Comment: Unable to calculate exact result. Interpretive Data The Binding Site FreeLite assay procedure was used. Results from different manufacturers or methods may not be comparable. Serial testing should be performed using the same methods and instrumentation. Current Interpretive Data was last revised on 2023. Braddock free light chain [facility] <0.06(L) 0.33 - [...] revised on 2023. Blood 08/03/2024 7:40 AM LUNCH COOK 08/03/2024 8:24 AM LUNCH COOK Hermelindo Butler MD LAB BLOOD ORDER ELANA Final Result [facility] Department [place] [address] * (ABNORMAL) CBC with auto differential (08/03/2024 7:40 AM LUNCH COOK) WBC 7.9 3.8 - 9.9 K/cumm Comment:Testing performed by : [facility], [address] [place] [address] Hgb 13.7 13.0 - 17.5 g/dL [facility] Comment:Testing performed by : [facility], [address] [place] [address] Hct 41.5 38.9 - 50.3 % [facility] Comment:Testing performed by : [facility], [address] [place] [address] Plt 163 150 - 400 K/cumm [facility] Comment:Testing performed by : [facility], [address] [place] [address] MPV 7.8 6.8 - 10.4 fL [facility] Comment:Testing performed by : [facility], [address] [place] [address] RBC 4.50 4.30 - 5.80 M/cumm [facility] Comment:Testing performed by : [facility], [address] [place] [address] MCV 92.1 81.3 - 96.4 fL [facility] Comment:Testing performed by : [facility], [address] [place] [phone] MCH 30.4 27.1 - 33.3 pg [facility] Comment:Testing performed by : [facility], [address] [place], [place] [phone] MCHC 33.0 32.3 - 35.7 g/dL [facility] Comment:Testing performed by : [facility], [address] [place], [place] [phone] RDW CV 16.6(H) 11.1 - 14.9 % [facility] Comment:Testing performed by : [facility], [address] [place], [place] [phone] NRBC abs 0.00 0.00 - 0.01 K/cumm [facility] Comment:Testing performed by : [facility], [address] [place] [phone] Blood 08/03/2024 7:40 AM LUNCH COOK 08/03/2024 7:47 AM LUNCH COOK Hermelindo Butler MD LAB BLOOD ORDER ELANA Final Result [facility] Department [place] [address] * (ABNORMAL) Protein electrophoresis with reflex, serum with interpretation (08/03/2024 7:40 AM LUNCH COOK) Protein, sr 5.7(L) 6.2 - 8.2 g/dL Albumin 3.8 3.2 - 5.0 g/dL [facility] Alpha-1 globulin 0.3 0.2 - 0.4 g/dL [facility] Alpha-2 globulin 0.6 0.5 - 1.0 g/dL [facility] Beta-1 globulin 0.4 0.3 - 0.6 g/dL [facility] Beta-2 globulin 0.3 0.2 - 0.6 g/dL [facility] Gamma globulin 0.2(L) 0.5 - 1.7 g/dL [facility] SPEP interp Please see comment [facility] Comment: No apparent monoclonal peak Decreased gamma globulins Electrophoretic pattern appears similar to previous sample 07/14/24 *See immunotyping for further information Reviewed and signed by Hermelindo Mcnulty MD 08/04/2024 Blood 08/03/2024 7:40 AM LUNCH COOK 08/03/2024 8:24 AM LUNCH COOK Hermelindo Butler MD LAB BLOOD ORDER ELANA Final Result Performing Organization Address City/[facility] Co de [place] [address] * Magnesium (08/03/2024 7:40 AM LUNCH COOK) [facility] Magnesium 2.2 1.4 - 2.5 mg/dL Blood 08/03/2024 7:40 AM LUNCH COOK 08/03/2024 9:36 AM LUNCH COOK Hermelindo Butler MD LAB BLOOD ORDER ELANA Final Result Performing Organization Address [facility] de Phone Number [facility] [place] [address] * Lactate dehydrogenase (LD) (08/03/2024 7:40 AM LUNCH COOK) [facility] Lactate dehydrogenase (LDH) 172 100 - 250 Units/L Blood 08/03/2024 7:40 AM LUNCH COOK 08/03/2024 7:49 AM LUNCH COOK Hermelindo Butler MD LAB BLOOD ORDER ELANA Final Result Performing Organization Address [facility] de Phone Number [facility] [place] [address] * (ABNORMAL) Hemoglobin A1c (08/03/2024 7:40 AM LUNCH COOK) [facility] Hgb A1C 5.8(H) 4.0 - 5.6 % Estimated Average Glucose 120 mg/dL [facility] Comment: The ADA recommends reporting an estimated Average Glucose (eAG) with all Hemoglobin A1c results using the equation derived from a study of 507 normal and diabetic adults. Minority populations were underrepresented and children were not included. (Diabetes Care 2020; 43(S1): S66-S76). The eAG is not equivalent to a fasting glucose. Blood 08/03/2024 7:40 AM LUNCH COOK 08/03/2024 7:49 AM LUNCH COOK Lyndsey Fagan NP LAB BLOOD ORDERABLES Angeles l Result Performing Organization Address City/[facility] Co de Phone Number [facility] [place] [address] * Gamma GT (08/03/2024 7:40 AM LUNCH COOK) [facility] GGT 23 10 - 50 Units/L Blood 08/03/2024 7:40 AM LUNCH COOK 08/03/2024 9:36 AM LUNCH COOK Hermelindo Butler MD LAB BLOOD ORDER ELANA Final Result Performing Organization Address [facility] Co de Phone Number [facility] [place] [address] * (ABNORMAL) IgA (08/03/2024 7:40 AM LUNCH COOK) [facility] Immunoglobulin A <50(L) 70 - 400 mg/dL Blood 08/03/2024 7:40 AM LUNCH COOK 08/03/2024 8:09 AM LUNCH COOK Hermelindo Butler MD LAB BLOOD ORDER ELANA Final Result Performing Organization Address City/[facility] Co de Phone Number [facility] [place] [address] * (ABNORMAL) IgM (08/03/2024 7:40 AM LUNCH COOK) [facility] Immunoglobulin M <25(L) 40 - 230 mg/dL Blood 08/03/2024 7:40 AM LUNCH COOK 08/03/2024 8:09 AM LUNCH COOK Hermelindo Butler MD LAB BLOOD ORDER ELANA Final Result Performing Organization Address City/[facility]/ZIP Co de Phone Number [facility] Department [place] [address] * (ABNORMAL) IgG (08/03/2024 7:40 AM LUNCH COOK) [facility] Immunoglobulin G <300(L) 700 - 1,600 mg/dL Blood 08/03/2024 7:40 AM LUNCH COOK 08/03/2024 8:09 AM LUNCH COOK Hermelindo Butler MD LAB BLOOD ORDER ELANA Final Result Performing Organization Address City/[facility] de Phone Number [facility] Department [place] [address] * (ABNORMAL) Comprehensive metabolic panel (08/03/2024 7:40 AM LUNCH COOK) [facility] Sodium 141 135 - 145 mmol/L Potassium, pl 4.0 3.3 - 4.9 mmol/L [facility] Chloride 104 97 - 110 mmol/L [facility] CO2 30 22 - 32 mmol/L [facility] Anion gap 7 2 - 15 mmol/L [facility] BUN 47(H) 6 - 25 mg/dL [facility] Creatinine 1.92(H) 0.80 - 1.30 mg/dL [facility] Glucose 116 70 - 199 mg/dL [facility] Comment: Interpretive Data Fasting [...] Calcium 9.2 8.5 - 10.3 mg/dL [facility] Bilirubin, total 0.7 0.1 - 1.2 mg/dL [facility] Protein, pl 6.2(L) 6.5 - 8.5 g/dL [facility] Albumin 3.9 3.5 - 5.0 g/dL [facility] Alk phos 63 40 - 130 Units/L [facility] ALT 15 7 - 55 Units/L [facility] AST 17 10 - 50 Units/L [facility] Blood 08/03/2024 7:40 AM LUNCH COOK 08/03/2024 7:49 AM LUNCH COOK Hermelindo Butler MD LAB BLOOD ORDER ELANA Final Result [facility] Department [place] [address] * (ABNORMAL) Urinalysis reflex to microscopic and culture Urine, clean voided (08/03/2024 7:30 AM LUNCH COOK) Color, ur Straw Yellow Clarity, ur Clear Clear [facility] Specific gravity, ur 1.012 1.003 - 1.030 [facility] pH, urine 5.5 [facility] Comment: Interpretive Data U rine pH is affected by diet, medications, systemic acid-base disturbances, and renal tubular function. pH may affect urinary stone formation. For example, urine pH below 6.0 may help reduce the tendency for calcium phosphate stones and pH greater than 6.0 may reduce the tendency for uric acid stone formation. Source: [facility] Current Interpretive Data was last revised on 2017 Protein, ur ql Negative Negative [facility] Glucose, ur ql Negative Negative [facility] Ketones, ur Negative Negative [facility] Bilirubin, ur Negative Negative [facility] Blood, ur 2+(A) Negative [facility] Urobilinogen, ur <2.0 <2.0 mg/dL [facility] Nitrite, ur Negative Negative [facility] Leukocyte esterase, ur Negative [facility] UA reflex comment Reflex to microscopic UA will be performed. [facility] Urine, clean voided 08/03/2024 7:30 AM LUNCH COOK 08/03/2024 7:30 AM LUNCH COOK Lyndsey Fagan [employer] LAB MICROBIOLOGY - GENERA L ORDERABLES Final Result Performing Organization Address [facility] Co de Phone Number [facility] [place] [address] * (ABNORMAL) Urinalysis, microscopic only (08/03/2024 7:30 AM LUNCH COOK) WBC, ur 6-10(A) 0 - 5 /HPF RBC, ur 11-20(A) 0 - 2 /HPF [facility] Epithelial cells, squamous, ur 1-5 0 - 5 /HPF [facility] Bacteria, ur Trace(A) [facility] Culture Reflex Comment Reflex conditions for urine culture (WBC >10) not met. [facility] Urine, clean voided 08/03/2024 7:30 AM LUNCH COOK 08/03/2024 7:30 AM LUNCH COOK Lyndsey Fagan INSPECTOR AND UNLOADER LAB URINE ORDERABLES [place] l Result Performing Organization Address [facility] Co de Phone Number [facility] [place] [address] * Urine culture Urine, clean voided (08/03/2024 7:30 AM LUNCH COOK) Report Final Report: No growth Urine, clean voided 08/03/2024 7:30 AM LUNCH COOK 08/03/2024 9:59 AM LUNCH COOK Narrative [facility] - 08/04/2024 11:14 AM LUNCH COOK Testing performed by [facility] ([phone]) Hermelindo Butler MD LAB MICROBIOLOG Y - GENERAL ORDERABLES Final Result Performing Organization Address City/[facility] Co de Phone Number [facility] Department [place] [address] * Immunotyping, serum with interpretation (07/13/2024 7:40 AM LUNCH COOK) Immunosubtraction Please see comment Comment: NO PARAPROTEIN DETECTED Reviewed and signed by Rufino Huff MD, PhD 07/14/2024 Blood 07/13/2024 7:4 0 AM LUNCH COOK 07/13/2024 8:42 AM LUNCH COOK Hermelindo Butler MD LAB BLOOD ORDER ELANA Final Result Performing Organization Address [facility] Co de Phone Number [facility] Department [place] [address] * (ABNORMAL) eGFR (07/13/2024 7:40 AM LUNCH COOK) [facility] eGFR 57(L) >=60 mL/min/1. 73 m2 Comment: [...] last reviewed 2021. Blood 07/13/2024 7:40 AM LUNCH COOK 07/13/2024 7:47 AM LUNCH COOK Hermelindo Butler MD LAB BLOOD ORDER ELANA Final Result [facility] Department [place] [address] * Differential, auto (07/13/2024 7:40 AM LUNCH COOK) Neutrophil abs 5.4 1.5 - 6.5 K/cumm Comment:Testing performed by : [facility], [address] [place] [phone] Lymphocyte abs 0.9 0.8 - 3.3 K/cumm [facility] Comment:Testing performed by : [facility], [address] [place] [phone] Monocyte abs 0.5 0.2 - 0.8 K/cumm [facility] Comment:Testing performed by : [facility], [address] [place] [phone] Eosinophil abs 0.5 0.0 - 0.5 K/cumm [facility] Comment:Testing performed by : [facility], [address] [place] [phone] Basophil abs 0.0 0.0 - 0.1 K/cumm [facility] Comment:Testing performed by : [facility], [address] [place] [phone] Neutrophil pct 73.6 % [facility] Comment: Interpretive Data Percent cell count reference ranges are not reported, since discordance with absolute values may lead to misinterpretation of CBC data. Current Interpretive Data was last revised on 2017. Testing performed by: [facility], [address] [place] [phone] Lymphocyte pct 12.0 % [facility] Comment: Interpretive Data Percent cell count reference ranges are not reported, since discordance with absolute values may lead to misinterpretation of CBC data. Current Interpretive Data was last revised on 2017. Testing performed by: [facility], [address] [place] [phone] Monocyte pct 7.4 % [facility] Comment: Interpretive Data Percent cell count reference ranges are not reported, since discordance with absolute values may lead to misinterpretation of CBC data. Current Interpretive Data was last revised on 2017. Testing performed by: [facility], [address] [place] [phone] Eosinophil pct 6.5 % MT [facility] Comment: Interpretive Data Percent cell count reference ranges are not reported, since discordance with absolute values may lead to misinterpretation of CBC data. Current Interpretive Data was last revised on 2017. Testing performed by: [facility], [address] [place] [phone] Basophil pct 0.5 % MT [facility] Comment: Interpretive Data Percent cell count reference ranges are not reported, since discordance with absolute values may lead to misinterpretation of CBC data. Current Interpretive Data was last revised on 2017. Testing performed by: [facility], [address] [place] [phone] Blood 07/13/2024 7:40 AM LUNCH COOK 07/13/2024 7:46 AM LUNCH COOK Hermelindo Butler MD LAB BLOOD ORDER ELANA Final Result [facility] Department [place] [address] * (ABNORMAL) Immunoglobulin free light chains (07/13/2024 7:40 AM LUNCH COOK) Braddock/Lambda ratio [facility] See Comment 0.26 - 1.65 Comment: Unable to calculate exact result. Interpretive Data The Binding Site FreeLite assay procedure was used. Results from different manufacturers or methods may not be comparable. Serial testing should be performed using the same methods and instrumentation. Current Interpretive Data was last revised on 2023. Braddock free light chain [facility] <0.06(L) 0.33 - [...] revised on 2023. Blood 07/13/2024 7:40 AM LUNCH COOK 07/13/2024 8:42 AM LUNCH COOK Hermelindo Butler MD LAB BLOOD ORDER ELANA Final Result [facility] Department [place] [address] * (ABNORMAL) CBC with auto differential (07/13/2024 7:40 AM LUNCH COOK) WBC 7.4 3.8 - 9.9 K/cumm Comment:Testing performed by : [facility], [address] [place] [address] Hgb 14.4 13.0 - 17.5 g/dL [facility] Comment:Testing performed by : [facility], [address] [place] [address] Hct 44.1 38.9 - 50.3 % [facility] Comment:Testing performed by : [facility], [address] [place] [address] Plt 174 150 - 400 K/cumm [facility] Comment:Testing performed by : [facility], [address] [place] [address] MPV 7.5 6.8 - 10.4 fL [facility] Comment:Testing performed by : [facility], [address] [place], [place] [phone] RBC 4.75 4.30 - 5.80 M/cumm [facility] Comment:Testing performed by : [facility], [address] [place], [place] [phone] MCV 92.8 81.3 - 96.4 fL [facility] Comment:Testing performed by : [facility], [address] [place], [place] [phone] MCH 30.2 27.1 - 33.3 pg [facility] Comment:Testing performed by : [facility], [address] [place], [place] [phone] MCHC 32.6 32.3 - 35.7 g/dL [facility] Comment:Testing performed by : [facility], [address] [place], [place] [phone] RDW CV 16.2(H) 11.1 - 14.9 % [facility] Comment:Testing performed by : [facility], [address] [place], [place] [phone] NRBC abs 0.00 0.00 - 0.01 K/cumm MT [facility] Comment:Testing performed by : [facility], [address] [place], [place] [phone] Blood 07/13/2024 7:40 AM LUNCH COOK 07/13/2024 7:46 AM LUNCH COOK Hermelindo Butler MD LAB BLOOD ORDER ELANA Final Result [facility] Department [place] [address] * (ABNORMAL) Protein electrophoresis with reflex, serum with interpretation (07/13/2024 7:40 AM LUNCH COOK) Protein, sr 5.7(L) 6.2 - 8.2 g/dL Albumin 3.7 3.2 - 5.0 g/dL [facility] Alpha-1 globulin 0.3 0.2 - 0.4 g/dL [facility] Alpha-2 globulin 0.6 0.5 - 1.0 g/dL [facility] Beta-1 globulin 0.4 0.3 - 0.6 g/dL [facility] Beta-2 globulin 0.3 0.2 - 0.6 g/dL [facility] Gamma globulin 0.3(L) 0.5 - 1.7 g/dL [facility] SPEP interp Please see comment [facility] Comment: No apparent monoclonal peak Decreased gamma globulins Electrophoretic pattern appears similar to previous sample 06/23/24 See immunotyping for further information Reviewed and signed by Rufino Huff MD, PhD 07/14/2024 Blood 07/13/2024 7:40 AM LUNCH COOK 07/13/2024 8:42 AM LUNCH COOK Hermelindo Butler MD LAB BLOOD ORDER ELANA Final Result [facility] Department [place] [address] * Magnesium (07/13/2024 7:40 AM LUNCH COOK) Pathologist [facility] Magnesium 2.2 1.4 - 2.5 mg/dL Blood 07/13/2024 7:40 AM LUNCH COOK 07/13/2024 7:47 AM LUNCH COOK Hermelindo Butler MD LAB BLOOD ORDER ELANA Final Result [facility] Department [place] [address] * Lactate dehydrogenase (LD) (07/13/2024 7:40 AM LUNCH COOK) Lactate dehydrogenase (LDH) 152 100 - 250 Units/L Blood 07/13/2024 7:40 AM LUNCH COOK 07/13/2024 7:47 AM LUNCH COOK us Hermelindo Butler MD LAB BLOOD ORDER LEANA Final Result Performing Organization Address [facility] de Phone Number [facility] [place] [address] * Gamma GT (07/13/2024 7:40 AM LUNCH COOK) GGT 27 10 - 50 Units/L Blood 07/13/2024 7:40 AM LUNCH COOK 07/13/2024 7:47 AM LUNCH COOK us Hermelindo Butler MD LAB BLOOD ORDER ELANA Final Result Performing Organization Address [facility] Phone Number [facility] [place] [address] * (ABNORMAL) IgA (07/13/2024 7:40 AM LUNCH COOK) Pathologist [facility] Immunoglobulin A <50(L) 70 - 400 mg/dL Blood 07/13/2024 7:40 AM LUNCH COOK 07/13/2024 7:59 AM LUNCH COOK us Hermelindo Butler MD LAB BLOOD ORDER ELANA Final Result Performing Organization Address [facility] de Phone Number [facility] [place] [address] * (ABNORMAL) IgM (07/13/2024 7:40 AM LUNCH COOK) Immunoglobulin M <25(L) 40 - 230 mg/dL Blood 07/13/2024 7:40 AM LUNCH COOK 07/13/2024 7:59 AM LUNCH COOK Hermelindo Butler MD LAB BLOOD ORDER ELANA Final Result Performing Organization Address City/[facility]/[place] de Phone Number [facility] Department [place] [address] * (ABNORMAL) IgG (07/13/2024 7:40 AM LUNCH COOK) Pathologist [facility] Immunoglobulin G <300(L) 700 - 1,600 mg/dL Blood 07/13/2024 7:40 AM LUNCH COOK 07/13/2024 7:59 AM LUNCH COOK Hermelindo Butler MD LAB BLOOD ORDER ELANA Final Result [facility] Department [place] [address] * (ABNORMAL) Comprehensive metabolic panel (07/13/2024 7:40 AM LUNCH COOK) Pathologist [facility] Sodium 144 135 - 145 mmol/L Potassium, pl 4.2 3.3 - 4.9 mmol/L [facility] Chloride 107 97 - 110 mmol/L [facility] CO2 33(H) 22 - 32 mmol/L [facility] Anion gap 4 2 - 15 mmol/L [facility] BUN 29(H) 6 - 25 mg/dL [facility] Creatinine 1.34(H) 0.80 - 1.30 mg/dL [facility] Glucose 125 70 - 199 mg/dL [facility] Comment: Interpretive Data Fasting [...] Calcium 9.4 8.5 - 10.3 mg/dL [facility] Bilirubin, total 0.7 0.1 - 1.2 mg/dL [facility] Protein, pl 6.2(L) 6.5 - 8.5 g/dL [facility] Albumin 4.1 3.5 - 5.0 g/dL [facility] Alk phos 65 40 - 130 Units/L [facility] ALT 18 7 - 55 Units/L [facility] AST 16 10 - 50 Units/L [facility] Blood 07/13/2024 7:40 AM LUNCH COOK 07/13/2024 7:47 AM LUNCH COOK Hermelindo Butler MD LAB BLOOD ORDER ELANA Final Result Performing Organization Address [facility] de Phone Number [facility] [place] [address] * aPTT (07/13/2024 7:24 AM LUNCH COOK) aPTT 28 28 - 38 sec Comment: Interpretive Data Heparin therapeutic range: 66.0 - 100.0 seconds. Range based on correlation with therapeutic heparin activity range of 0.3 - 0.7 Units/mL. Current interpretive data was last revised on 2023. Blood 07/13/2024 7:24 AM LUNCH COOK 07/13/2024 7:59 AM LUNCH COOK Hermelindo Butler MD LAB BLOOD ORDER ELANA Final Result Performing Organization Address [facility] de Phone Number [facility] [place] [address] * Protime-INR (07/13/2024 7:24 AM LUNCH COOK) PT 11.5 9.7 - 13.0 sec INR 1.06 0.90 - 1.20 [facility] Comment: Interpretive data Oral anticoagulant therapeutic ranges: Venous thromboembolism prophylaxis or treatment: 2.0-3.0 CARDIOLOGY Standard range: 2.0-3.0 High-intensity range: 2.5-3.5 Refer to indication-specific guidelines for appropriate target ranges for prosthetic heart valve replacement. Current interpretive data was last revised on 2019. Blood 07/13/2024 7:24 AM LUNCH COOK 07/13/2024 7:59 AM LUNCH COOK Hermelindo Butler MD LAB BLOOD ORDER ELANA Final Result Performing Organization Address City/State/[facility] Co de Phone Number [facility] Department [place] [address] * Immunotyping, serum (06/22/2024 7:20 AM LUNCH COOK) Immunosubtraction Please see comment Comment: NO PARAPROTEIN DETECTED Reviewed and signed by Fernando Nunez MD, PhD 06/23/2024 Blood 06/22/2024 7:20 AM LUNCH COOK 06/22/2024 10:03 AM LUNCH COOK Hermelindo Butler MD LAB BLOOD ORDER ELANA Final Result Performing Organization Address City/[facility] Co de Phone Number [facility] Department [place] [address] * eGFR (06/22/2024 7:20 AM LUNCH COOK) eGFR 66 >=60 mL/min/1. 73 m2 Comment: [...] last reviewed 2021. Blood 06/22/2024 7:20 AM LUNCH COOK 06/22/2024 8:12 AM LUNCH COOK Hermelindo Butler MD LAB BLOOD ORDER ELANA Final Result [facility] Department [place] [address] * Differential, auto (06/22/2024 7:20 AM LUNCH COOK) Neutrophil abs 5.4 1.5 - 6.5 K/cumm Comment:Testing performed by : [facility], [address] [place] [phone] Lymphocyte abs 0.9 0.8 - 3.3 K/cumm [facility] Comment:Testing performed by : [facility], [address] [place] [phone] Monocyte abs 0.5 0.2 - 0.8 K/cumm [facility] Comment:Testing performed by : [facility], [address] [place] [phone] Eosinophil abs 0.2 0.0 - 0.5 K/cumm [facility] Comment:Testing performed by : [facility], [address] [place] [phone] Basophil abs 0.0 0.0 - 0.1 K/cumm [facility] Comment:Testing performed by : [facility], [address] [place] [phone] Neutrophil pct 75.7 % [facility] Comment: Interpretive Data Percent cell count reference ranges are not reported, since discordance with absolute values may lead to misinterpretation of CBC data. Current Interpretive Data was last revised on 2017. Testing performed by: [facility], [address] [place] [phone] Lymphocyte pct 13.1 % [facility] Comment: Interpretive Data Percent cell count reference ranges are not reported, since discordance with absolute values may lead to misinterpretation of CBC data. Current Interpretive Data was last revised on 2017. Testing performed by: [facility], [address] [place] [phone] Monocyte pct 7.1 % [facility] Comment: Interpretive Data Percent cell count reference ranges are not reported, since discordance with absolute values may lead to misinterpretation of CBC data. Current Interpretive Data was last revised on 2017. Testing performed by: [facility], [address] [place] [phone] Eosinophil pct 3.5 % [facility] Comment: Interpretive Data Percent cell count reference ranges are not reported, since discordance with absolute values may lead to misinterpretation of CBC data. Current Interpretive Data was last revised on 2017. Testing performed by: [facility], [address] [place] [phone] Basophil pct 0.6 % [facility] Comment: Interpretive Data Percent cell count reference ranges are not reported, since discordance with absolute values may lead to misinterpretation of CBC data. Current Interpretive Data was last revised on 2017. Testing performed by: [facility], [address] [place] [phone] Blood 06/22/2024 7:20 AM LUNCH COOK 06/22/2024 8:08 AM LUNCH COOK Hermelindo Butler MD LAB BLOOD ORDER ELANA Final Result MT [facility] Department [place] [address] * (ABNORMAL) Immunoglobulin free light chains (06/22/2024 7:20 AM LUNCH COOK) Braddock/Lambda ratio [facility] See Comment 0.26 - 1.65 Comment: Unable to calculate exact result. Interpretive Data The Binding Site FreeLite assay procedure was used. Results from different manufacturers or methods may not be comparable. Serial testing should be performed using the same methods and instrumentation. Current Interpretive Data was last revised on 2023. Braddock free light chain [facility] <0.06(L) 0.33 - [...] revised on 2023. Blood 06/22/2024 7:20 AM LUNCH COOK 06/22/2024 9:53 AM LUNCH COOK Hermelindo Butler MD LAB BLOOD ORDER ELANA Final Result MT SUAREZ [facility] Department [place] [address] * (ABNORMAL) CBC with auto differential (06/22/2024 7:20 AM LUNCH COOK) WBC 7.1 3.8 - 9.9 K/cumm Comment:Testing performed by : [facility], [address] [place] [address] Hgb 14.6 13.0 - 17.5 g/dL MT SUAREZ Comment:Testing performed by : [facility], [address] [place] [address] Hct 45.6 38.9 - 50.3 % MT SUAREZ Comment:Testing performed by : [facility], [address] [place] [address] Plt 196 150 - 400 K/cumm MT SUAREZ Comment:Testing performed by : [facility], [address] [place] [address] MPV 8.3 6.8 - 10.4 fL MT SUAREZ Comment:Testing performed by : [facility], [address] [place] [address] RBC 4.88 4.30 - 5.80 M/cumm [facility] Comment:Testing performed by : [facility], [address] [place] [address] MCV 93.5 81.3 - 96.4 fL MT [facility] Comment:Testing performed by : [facility], [address] [place], [place] [id number] MCH 29.9 27.1 - 33.3 pg MT [facility] Comment:Testing performed by : [facility], [address] [place] [address] MCHC 31.9(L) 32.3 - 35.7 g/dL MT [facility] Comment:Testing performed by : [facility], [address] [place] [address] RDW CV 16.0(H) 11.1 - 14.9 % MT [facility] Comment:Testing performed by : [facility], [address] [place] [address] NRBC abs 0.20(H) 0.00 - 0.01 K/cumm MT [facility] Comment:Testing performed by : [facility], [address] [place] [address] Blood 06/22/2024 7:20 AM LUNCH COOK 06/22/2024 8:08 AM LUNCH COOK Hermelindo Butler MD LAB BLOOD ORDER ELANA Final Result [facility] Department [place] [address] * aPTT (06/22/2024 7:20 AM LUNCH COOK) [facility] aPTT 29 28 - 38 sec Comment: Interpretive Data Heparin therapeutic range: 66.0 - 100.0 seconds. Range based on correlation with therapeutic heparin activity range of 0.3 - 0.7 Units/mL. Current interpretive data was last revised on 2023. Blood 06/22/2024 7:20 AM LUNCH COOK 06/22/2024 9:50 AM LUNCH COOK Hermelindo Butler MD LAB BLOOD ORDER ELANA Final Result Performing Organization Address [facility] de Phone Number [facility] [place] [address] * Protime-INR (06/22/2024 7:20 AM LUNCH COOK) Pathologist [facility] PT 10.9 9.7 - 13.0 sec INR 1.01 0.90 - 1.20 [facility] Comment: Interpretive data Oral anticoagulant therapeutic ranges: Venous thromboembolism prophylaxis or treatment: 2.0-3.0 CARDIOLOGY Standard range: 2.0-3.0 High-intensity range: 2.5-3.5 Refer to indication-specific guidelines for appropriate target ranges for prosthetic heart valve replacement. Current interpretive data was last revised on 2019. Blood 06/22/2024 7:20 AM LUNCH COOK 06/22/2024 9:50 AM LUNCH COOK Hermelindo Butler MD LAB BLOOD ORDER ELANA Final Result Performing Organization Address [facility] de [place] [address] * (ABNORMAL) Protein electrophoresis with reflex, serum (06/22/2024 7:20 AM LUNCH COOK) Protein, sr 5.9(L) 6.2 - 8.2 g/dL Albumin 3.7 3.2 - 5.0 g/dL [facility] Alpha-1 globulin 0.3 0.2 - 0.4 g/dL [facility] Alpha-2 globulin 0.7 0.5 - 1.0 g/dL [facility] Beta-1 globulin 0.5 0.3 - 0.6 g/dL [facility] Beta-2 globulin 0.3 0.2 - 0.6 g/dL [facility] Gamma globulin 0.4(L) 0.5 - 1.7 g/dL [facility] SPEP interp Please see comment [facility] Comment: No apparent monoclonal peak Decreased gamma globulins Electrophoretic pattern appears similar to previous sample 05-19-24 See immunotyping for further information Reviewed and signed by Fernando Nunez MD, PhD 06/23/2024 Immunotyping See Immunotyping Results [facility] Blood 06/22/2024 7:20 AM LUNCH COOK 06/22/2024 9:55 AM LUNCH COOK Hermelindo Butler MD LAB BLOOD ORDER ELANA Final Result Performing Organization Address [facility] Co de Phone Number [facility] Department [place] [address] * Magnesium (06/22/2024 7:20 AM LUNCH COOK) Pathologist [facility] Magnesium 2.2 1.4 - 2.5 mg/dL Blood 06/22/2024 7:20 AM LUNCH COOK 06/22/2024 8:12 AM LUNCH COOK Hermelindo Butler MD LAB BLOOD ORDER ELANA Final Result Performing Organization Address [facility] Co de Phone Number [facility] Department [place] [address] * Lactate dehydrogenase (LD) (06/22/2024 7:20 AM LUNCH COOK) Lactate dehydrogenase (LDH) 157 100 - 250 Units/L Blood 06/22/2024 7:20 AM LUNCH COOK 06/22/2024 8:12 AM LUNCH COOK Hermelindo Butler MD LAB BLOOD ORDER ELANA Final Result Performing Organization Address [facility] Co de Phone Number [facility] Department [place] [address] * Gamma GT (06/22/2024 7:20 AM LUNCH COOK) GGT 30 10 - 50 Units/L Blood 06/22/2024 7:20 AM LUNCH COOK 06/22/2024 8:12 AM LUNCH COOK Hermelindo Butler MD LAB BLOOD ORDER ELANA Final Result Performing Organization Address [facility] Co de Phone Number [facility] [place] [address] * (ABNORMAL) IgA (06/22/2024 7:20 AM LUNCH COOK) [facility] Immunoglobulin A <50(L) 70 - 400 mg/dL Blood 06/22/2024 7:20 AM LUNCH COOK 06/22/2024 9:49 AM LUNCH COOK Hermelindo Butler MD LAB BLOOD ORDER ELANA Final Result Performing Organization Address [facility] Co de Phone Number [facility] Department [place] [address] * (ABNORMAL) IgM (06/22/2024 7:20 AM LUNCH COOK) [facility] Immunoglobulin M <25(L) 40 - 230 mg/dL Blood 06/22/2024 7:20 AM LUNCH COOK 06/22/2024 9:49 AM LUNCH COOK Hermelindo Butler MD LAB BLOOD ORDER ELANA Final Result Performing Organization Address [facility] Co de Phone [place] [address] * (ABNORMAL) IgG (06/22/2024 7:20 AM LUNCH COOK) Immunoglobulin G 423(L) 700 - 1,600 mg/dL Blood 06/22/2024 7:20 AM LUNCH COOK 06/22/2024 9:49 AM LUNCH COOK Hermelindo Butler MD LAB BLOOD ORDER ELANA Final Result [facility] Department [place] [address] * (ABNORMAL) Comprehensive metabolic panel (06/22/2024 7:20 AM LUNCH COOK) Pathologist [facility] Sodium 141 135 - 145 mmol/L Potassium, pl 4.1 3.3 - 4.9 mmol/L [facility] Chloride 104 97 - 110 mmol/L [facility] CO2 31 22 - 32 mmol/L [facility] Anion gap 6 2 - 15 mmol/L [facility] BUN 24 6 - 25 mg/dL [facility] Creatinine 1.18 0.80 - 1.30 mg/dL [facility] Glucose 111 70 - 199 mg/dL [facility] Comment: Interpretive Data Fasting [...] 2022. Calcium 9.5 8.5 - 10.3 mg/dL [facility] Bilirubin, total 0.7 0.1 - 1.2 mg/dL [facility] Protein, pl 6.3(L) 6.5 - 8.5 g/dL [facility] Albumin 3.8 3.5 - 5.0 g/dL [facility] Alk phos 63 40 - 130 Units/L [facility] ALT 18 7 - 55 Units/L [facility] AST 20 10 - 50 Units/L [facility] Blood 06/22/2024 7:20 AM LUNCH COOK 06/22/2024 8:12 AM LUNCH COOK Hermelindo Butler MD LAB BLOOD ORDER ELANA Final Result Performing Organization Address [facility] Co de Phone Number [facility] Department [place] [address] * Hepatitis C antibody (10/16/2021 9:50 AM CDT) Hep C Ab Nonreactive Nonreactive [facility] Comment:Antibodies to HCV no t detected. Does NOT exclude the possibility of recent exposure to HCV. Blood 10/16/2021 9:50 AM CDT 10/16/2021 11:22 AM CDT Hermelindo dupree MD LAB MICROBIOLOGY - GENERAL ORDERABLES Edited Result - Final Performing Organization Address [facility] de Phone Number [facility] Department [place] [address] from Last 3 Months or Most Recently Relevant to Health Maintenance Insurance MEDICARE [employer] SENIOR SUPPLEMENT MEDICARE [facility] MEDICARE [employer] SENIOR SUPPLEMENT Advance Directives For more information, please contact: [phone] Documents on File Type Date Recorded Patient Stave Cutting Supervisor Expl anation ADVANCE DIRECTIVE 11/29/2017 11:05 AM FOX R OF DISPLAYER ADVANCE DIRECTIVE 11/12/2017 3:59 PM POWER OF DISPLAYER * Full Code (Latest Code Status on [...] 2:28 PM 05/31/2021 2:39 PM Care Teams Singing Messenger Relationship Specialty Start Date End Date Jatin Gamble MD [address] [place], [place] [id number] PCP - General 10/07/16 Hermelindo Butler MD [address], [place] [id number] Medical Oncologist/Hematologi Medical Oncology 12/02/17 Roberto Rojo MD [address] [place] [address] [facility] 12/02/17 Jatin Gamble MD [address] [place] [address] Referring Physician Internal Medicine 12/02/17 Lyndsey Fagan NP [address] [place] [address] Nurse Practitioner Medical Oncology 08/03/20 Erlin Servin MD [address] [place] [address] Consulting Physician Otolaryngology 10/04/22 [place] [address] [place] [address] Consulting Physician Urology 05/28/23 Salvador Norris MD [facility] [address] [place] [address] Consulting Physician Infectious Diseases 09/15/24 Miscellaneous, Not In File 09/15/24
== END 2024-09-20 13:03 | disposition home or self-care (01) ==
LOC: CHSLAB 13:05
PROVIDERS: PCP Internal Medicine; Visit Provider Internal Medicine Infectious Disease
DX: N20.0 Calculus of kidney (principal)
CPT/HCPCS: 36415; 80053; 85025

== ENCOUNTER 2024-10-05 11:36 | Outpatient (CLI) | payer MEDICARE, SELFPAY ==
--- NOTE | ~2024-10-05 | XR_ITS ---
XR chest 2V Ordering provider: Jatin Gamble MD History: 73 years Male with . cough/fever/wheezing,X1WK . Comparison: September 10, 2024 FINDINGS: MEDIASTINUM: The cardiac silhouette is not enlarged. Right Port-A-Cath with the tip overlying the sup erior vena cava. LUNGS: No infiltrates, effusions or pneumothorax. OTHER: No free air under the diaphragm. Degenerative changes of the spine.. The fracture in the left fifth rib. IMPRESSION: No acute cardiopulmonary pathology. Reviewed, dictated and finalized at location A.
[2024-10-05 12:18] LABS: Hematocrit 38.8 % (37.0-46.0); Hemoglobin 12.2 g/dL (12.4-15.3); Mean Corpuscular HGB Conc 31.4 g/dL (32-36); Mean Corpuscular Hemoglobin 31.3 pg (27.0-31.0); Mean Corpuscular Volume 99.5 fL (78.0-102.0); Mean Platelet Volume 9.5 fl (8.7-11.0); Platelet Count Result 177 K/mm3 (150-420); Red Cell Distribution Width 15.2 % (11.6-14.4); White Blood Count 9.1 K/mm3 (4.8-10.8)
[2024-10-05 12:39] LABS: Alanine Aminotransferase 21 U/L (16-63); Albumin Level 3.8 g/dL (3.4-5.0); Alkaline Phosphatase 76 U/L (46-116); Anion Gap 11 mmol/L (4-12); Aspartate Amino Transferase 11 U/L (15-37); Blood Urea Nitrogen 52 mg/dL (7-18); Calcium 9.3 mg/dL (8.5-10.1); Carbon Dioxide 30 mmol/L (21-32); Chloride 102 mmol/L (98-108); Estimated Glomerular Filt Rate 25; Glucose 107 mg/dL (70-99); Osmolality Calculated 310 mOsm/kg (285-295); Potassium 3.9 mmol/L (3.5-5.1); Sodium 143 mmol/L (136-145); Total Protein 7.1 g/dL (6.4-8.2)
[2024-10-05 12:45] LABS: Strep Group A RT-PCR NOT DETECTED (Negative)
[2024-10-05 12:55] LABS: Influenza A QL RT-PCR Negative (Negative); Influenza B QL RT-PCR Negative (Negative); RSV RNA, RT-PCR Positive (Negative); SARS-CoV-2 RNA PCR Negative (Negative)
--- OUTSIDE RECORDS SUMMARY | 2024-10-05 13:01 | XMS_ITS | Encounter Summary ---
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 Gender Identity Not on file Sexual Orientation [...] documented as of this encounter Care Teams Fruit Picker Relationship Specialty Start Date End Date Jatin Gamble MD [address] [place] [address] PCP - General 10/07/16 Hermelindo Butler MD [address] [place] [address] [facility] 12/02/17 Roberto Rojo MD [facility] [address] [place] [address] [facility] 12/02/17 Jatin Gamble MD [address] [place] [address] Referring Physician Internal Medicine 12/02/17 Garry Dueks MD [address] [place] [address] Referring Physician Urology 12/02/17 05/27/23 Lyndsey Fagan NP [address] [place] [address] Nurse Practitioner Medical Oncology 08/03/20 Erlin Servin MD [address] [place] [address] Consulting Physician Otolaryngology 10/04/22 [place] [address] [place] [address] Consulting Physician Urology 05/28/23 Salvador Norris MD [address] [place] [address] Consulting Physician Infectious Diseases 09/15/24 Miscellaneous, Not In File 09/15/24 documented as of this encounter
--- OUTSIDE RECORDS SUMMARY | 2024-10-05 13:01 | XMS_ITS ---
Author Organization [facility] Address [address] [place] [address] Care Team Providers Care Workers Compensation Attorney Name Role Phone Jatin Gamble MD Primary Care Provider Hermelindo Butler MD Unavailable Roberto Rojo MD Unavailable [phone] Jatin Gamble MD Unavailable [phone] Lyndsey Fagan NP Unavailable Erlin Servin MD Unavailable Julian Valdez MD Unavailable Salvador Norris MD Unavailable Miscellaneous, Not In File Unavailable Unava ilable Active Problems Patient Care Coordination No te Formatting of this note is d ifferent from the original. BMT Inpatient Care Coordination Overview Diagnosis [place] Floor [address] Treatment Plan Clinical Trial [id number] Rahel Reason for Admission JOHN Transplant/IEC Planning [...] Medical Assistants Post-Discharge Follow-Up Living Situation/Distance from [facility] (45 min) Caregiver Self, Lab/Transfusion [...] a risk of orbital injury and CLIENT CUSTOMER MANAGER injury which could result in blindness [...] this. Assessment & Plan (07/09/2022 7:42 PM RIGGING UP WORKER): I talked with him quite a [...] weeks. Assessment & Plan (05/26/2022 4:16 PM RIGGING UP WORKER): He does have pretty significant sinusitis [...] day. Assessment & Plan (05/26/2022 4:17 PM RIGGING UP WORKER): It is very possible that his cough could be due to sinusitis also. Hopefully that will continue to improve as we treat. He understands. Immunocompromised 11/13/2021 Multiple myeloma not having achieved remission 0 10/28/2021 Cancer Staging:Clinical stage from 10/16/2021:RISS Stage II(Jhbv-0-vuaamoeexerit (mg/L): 3.7, Albumin (g/dL): 4.2, ISS: Stage [...] and Dexamethasone in June 2021 Clinical trial [id number] initiated on 10/29/21; C46D1 08/03/24. BMT following [...] he got a TTE on 10/19 at [facility] however unclear why not currently in the system - May need to repeat TTE prior to treatment if results unavailable - Continue OI ppx with acyclovir 400mg BID - Begin trial [id number], a Bispecific Antibody Targeting BCMA treatment - [...] he got a TTE on 10/19 at [facility] however unclear why not currently in the system - May need to repeat TTE prior to treatment if results unavailable - Continue OI ppx with acyclovir 400mg BID - Begin trial [id number], a Bispecific Antibody Targeting BCMA treatment - [...] BID Assessment & Plan (05/31/2021 10:51 AM RIGGING UP WORKER): Continue home pepcid, asx Renal mass 05/30/2021 Assessment & Plan (05/31/2021 10:51 AM RIGGING UP WORKER): Admitted for observation after L renal [...] 07/17/2023 Assessment & Plan (05/31/2021 10:52 AM RIGGING UP WORKER): Follows with oncology on daratumumab monotherapy [...] blood in urine Follow up pathology from kslhittai-giw-azofdvpu high-grade papillary urothelial carcinoma (grade 2) --follow [...] blood in urine Follow up pathology from pefvapfbm-npr-nclsnuyy high-grade papillary urothelial carcinoma (grade 2) --follow [...] supplementation Assessment & Plan (05/31/2021 10:51 AM RIGGING UP WORKER): Stable on home losartan, nebivolol, triamterene-HCTZ 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/23/2013 Current Treatment and Therapy Plans - INPT/OUTPT - [facility] - MM - [id number] - Arm B - Dose Expansion Phase - TNB-383B Monotherapy* Plan Start Date:10/29/2021 Plan Provider:Hermelindo Butler MD Linked Problems Multiple myeloma in relapse (HCC) Treatment Medications Current Day (Day 1 , Cycle 49 - Planned for 10/19/2024) INV-[facility] (/TN B-383B.0001) Etentamig (TNB-383B/ABBV-383) IVPB in 50 mL (ANTI-LAG-3)INV-[facility] Etentamig (TNB-383B/ABBV-383) (/TNB-383B.0001)INV-[facility] sodium chloride 0.9 % INV-[facility] Etentamig (TNB-383B/ABBV-383) (IVSS-FREE FORMULATION) (/TNB-383B.2024) 40 mg in sodium chloride 0.9% 30 mL IVPBINV-[facility] sodium chloride 0.9 % flush IVPB 20 [...]
--- OUTSIDE RECORDS SUMMARY | 2024-10-05 13:01 | XMS_ITS | Encounter Summary ---
Author Organization [facility] Healthcare Address [address] [place] [address] Care Team Providers Care Netbackup Administrator Name Role Phone Jatin Gamble MD Primary Care Provider [phone] Hermelindo Butler MD Unavailable Roberto Rojo MD Unavailable Jatin Gamble MD Unavailable [phone] Garry Dukes MD Unavailable [phone] Lyndsey Fagan NP Unavailable Erlin Servin MD Unavailable [phone] Julian Valdez MD Unavailable Salvador Norris MD Unavailable Miscellaneous, Not In File Unavailable Unava ilable Encounter Details Date Type Department Care Team (Late st Contact Info) Description 11/22/2021 Documentation [facility] [address] [place] [address] Forrest Epstein RN Social History Tobacco Use Types Packs/Day Years Used Date Smoking Tobacco: Never Smokeless Tobacco: Never Alcohol Use Standard Drinks/Week Comments No 0 (1 standard drink = 0.6 oz pur e alcohol) Sex and Gender Information Value Date Recorded Sex Assigned at Not on file 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 Gender Identity Not on file Sexual [...] documented as of this encounter Care Teams Netbackup Administrator Relationship Specialty Start Date End Date Jatin Gamble MD [address] [place] [address] PCP - General 10/07/16 Hermelindo Butler MD [address] [place] [address] [facility] 12/02/17 Roberto Rojo MD [address] [place] [address] [facility] Oncology 12/02/17 Jatin Gamble MD [address] [place] [address] Referring Physician Internal Medicine 12/02/17 Garry Dukes MD [address] [place] [address] Referring Physician Urology 12/02/17 05/27/23 Lyndsey Fagan NP [address] [place] [address] Nurse Practitioner Medical Oncology 08/03/20 Erlin Servin MD [address] [place] [address] Consulting Physician Otolaryngology 10/04/22 [place] [address] [place] [address] Consulting Physician Urology 05/28/23 Salvador Norris MD [address] [place] [address] Consulting Physician Infectious Diseases 09/15/24 Miscellaneous, Not In File 09/15/24 documented as of this encounter
--- OUTSIDE RECORDS SUMMARY | 2024-10-05 13:01 | XMS_ITS | Clinical Summary ---
Author Organization [facility] Address [address] [place] [address] Care Team Providers Care Bottle Filler Name Role Phone Unavailable Primary Care Provider [...] Td Vaccines ( 1 - Tdap) 12/12/1969 Pneumococcal Vaccine: 50+ Ye ars (1 of 1 - PCV) 2002 Zoster Vaccines (1 of 2) 2002 COVID-19 Vaccine ( - 2023-2 5 season) [...]
--- OUTSIDE RECORDS SUMMARY | 2024-10-05 13:02 | XMS_ITS ---
[...] last reviewed 2021. Blood 08/06/2024 7:43 AM EMBLEM MAKER 08/06/2024 7:52 AM EMBLEM MAKER us Hermelindo Butler MD LAB BLOOD ORDER ELANA Final Result [facility] Department of Laboratories [place] [id number] * (ABNORMAL) Differential, auto (08/06/2024 7:43 AM EMBLEM MAKER) Neutrophil abs 5.4 1.5 - 6.5 K/cumm Comment:Testing performed by : [facility], [address] [place], [place] [phone] Lymphocyte abs 0.8 0.8 - 3.3 K/cumm CERNER [facility] Comment:Testing performed by : [facility], [address] [place], [place] [phone] Monocyte abs 0.5 0.2 - 0.8 K/cumm CERNER [facility] Comment:Testing performed by : [facility], [address] [place] [phone] Eosinophil abs 0.7(H) 0.0 - 0.5 K/cumm CERNER BJ Comment:Testing performed by : [facility], [address] [place] [phone] Basophil abs 0.0 0.0 - 0.1 K/cumm CERFRANK [facility] Comment:Testing performed by : [facility], [address] [place] [phone] Neutrophil pct 72.4 % CERNER BJ Comment: Interpretive Data Percent cell count reference ranges are not reported, since discordance with absolute values may lead to misinterpretation of CBC data. Current Interpretive Data was last revised on 2017. Testing performed by: [facility], [address] [place] [phone] Lymphocyte pct 10.4 % CERNER BJ Comment: Interpretive Data Percent cell count reference ranges are not reported, since discordance with absolute values may lead to misinterpretation of CBC data. Current Interpretive Data was last revised on 2017. Testing performed by: [facility], [address] [place] [phone] Monocyte pct 7.3 % CERNER BJ Comment: Interpretive Data Percent cell count reference ranges are not reported, since discordance with absolute values may lead to misinterpretation of CBC data. Current Interpretive Data was last revised on 2017. Testing performed by: [facility], [address] [place] [phone] Eosinophil pct 9.4 % CERNER BJ Comment: Interpretive Data Percent cell count reference ranges are not reported, since discordance with absolute values may lead to misinterpretation of CBC data. Current Interpretive Data was last revised on 2017. Testing performed by: [facility], [address] [place] [phone] Basophil pct 0.5 % CERNER BJ Comment: Interpretive Data Percent cell count reference ranges are not reported, since discordance with absolute values may lead to misinterpretation of CBC data. Current Interpretive Data was last revised on 2017. Testing performed by: [facility], [address] [place] [phone] Blood 08/06/2024 7:43 AM EMBLEM MAKER 08/06/2024 7:51 AM EMBLEM MAKER us Hermelindo Butler MD LAB BLOOD ORDER ELANA Final Result MT [facility] [place] [address] * (ABNORMAL) CBC with auto differential (08/06/2024 7:43 AM EMBLEM MAKER) WBC 7.5 3.8 - 9.9 K/cumm Comment:Testing performed by : [facility], [address] [place] [address] Hgb 13.7 13.0 - 17.5 g/dL CERNER BJ Comment:Testing performed by : [facility], [address] [place] [address] Hct 40.6 38.9 - 50.3 % CERNER BJ Comment:Testing performed by : [facility], [address] [place] [address] Plt 169 150 - 400 K/cumm CERNER BJ Comment:Testing performed by : [facility], [address] [place] [address] MPV 7.5 6.8 - 10.4 fL CERNER BJ Comment:Testing performed by : [facility], [address] [place] [address] RBC 4.37 4.30 - 5.80 M/cumm CERNER BJ Comment:Testing performed by : [facility], [address] [place] [address] MCV 92.7 81.3 - 96.4 fL CERNER BJ Comment:Testing performed by : [facility], [address] [place] [address] MCH 31.3 27.1 - 33.3 pg CERNER BJ Comment:Testing performed by : [facility], [address] [place] [address] MCHC 33.8 32.3 - 35.7 g/dL CERNER BJ Comment:Testing performed by : [facility], [address] [place] [address] RDW CV 16.5(H) 11.1 - 14.9 % CERNER BJ Comment:Testing performed by : [facility], [address] [place] [phone] NR abs 0.00 0.00 - 0.01 K/cumm MT [facility] Comment:Testing performed by : [facility], [address] [place] [phone] Blood 08/06/2024 7:43 AM EMBLEM MAKER 08/06/2024 7:51 AM EMBLEM MAKER Hermelindo Butler MD LAB BLOOD ORDER ELANA Final Result Performing Organization Address [facility] Co de Phone Number [facility] Department [place] [address] * (ABNORMAL) PSA diagnostic (08/06/2024 7:43 AM EMBLEM MAKER) PSA-Total 6.28(H) <=6.20 ng/mL Comment: Interpretive Data [...] last revised 21. Blood 08/06/2024 7:43 AM EMBLEM MAKER 08/06/2024 7:52 AM EMBLEM MAKER Hermelindo Butler MD LAB BLOOD ORDER ELANA Final Result Performing Organization Address [facility] de Phone Number [facility] Department [place] [address] * Lactate dehydrogenase (LD) (08/06/2024 7:43 AM EMBLEM MAKER) Lactate dehydrogenase (LDH) 161 100 - 250 Units/L Blood 08/06/2024 7:43 AM EMBLEM MAKER 08/06/2024 7:52 AM EMBLEM MAKER us Hermelindo Butler MD LAB BLOOD ORDER ELANA Final Result MT SU[facility] Department [place] [address] * (ABNORMAL) Lipid panel (08/06/2024 7:43 AM EMBLEM MAKER) Cholesterol 128 30 - 199 mg/dL Comment: [...] on 2018. Triglycerides 149 <=149 mg/dL MT [facility] Comment: Interpretive Data Ages < or = [...] on 2018. HDL 38(L) >=40 mg/dL MT SUAREZ Comment: Interpretive Data Ages < or = [...] 64 <=129 mg/dL MT [facility] Comment: Interpretive Data Ages < or = [...] revised on 2024. Non-HDL Cholesterol 90 mg/dL [facility] Comment: Interpretive Data Ages [...] last revised on 2018. Chol/HDL ratio 3 [facility] Blood 08/06/2024 7:43 AM EMBLEM MAKER 08/06/2024 7:52 AM EMBLEM MAKER us Hermelindo Butler MD LAB BLOOD ORDER ELANA Final Result MT [facility] [place] [address] * (ABNORMAL) Comprehensive metabolic panel (08/06/2024 7:43 AM EMBLEM MAKER) Sodium 145 135 - 145 mmol/L Potassium, pl 4.2 3.3 - 4.9 mmol/L CERNER [facility] Chloride 108 97 - 110 mmol/L CERNER [facility] CO2 30 22 - 32 mmol/L CERNER [facility] Anion gap 7 2 - 15 mmol/L [facility] BUN 51(H) 6 - 25 mg/dL CERNER [facility] Creatinine 2.21(H) 0.80 - 1.30 mg/dL CERNER [facility] Glucose 113 70 - 199 mg/dL [facility] [...] Protein, pl 6.2(L) 6.5 - 8.5 g/dL [facility] Albumin 4.1 3.5 - 5.0 g/dL [facility] Alk phos 61 40 - 130 Units/L [facility] ALT 15 7 - 55 Units/L [facility] AST 16 10 - 50 Units/L [facility] Blood 08/06/2024 7:43 AM EMBLEM MAKER 08/06/2024 7:52 AM EMBLEM MAKER us Hermelindo Butler MD LAB BLOOD ORDER ELANA Final Result [facility] Department [place] [address] * aPTT (08/03/2024 9:21 AM EMBLEM MAKER) Pathologist [facility] aPTT 31 28 - 38 sec Comment: Interpretive Data Heparin therapeutic range: 66.0 - 100.0 seconds. Range based on correlation with therapeutic heparin activity range of 0.3 - 0.7 Units/mL. Current interpretive data was last revised on 2023. Blood 08/03/2024 9:21 AM EMBLEM MAKER 08/03/2024 9:47 AM EMBLEM MAKER Hermelindo Butler MD LAB BLOOD ORDER ELANA Final Result Performing Organization Address [facility] [place] [address] * Protime-INR (08/03/2024 9:21 AM EMBLEM MAKER) Pathologist [facility] PT 11.5 9.7 - [...] revised on 2019. Blood 08/03/2024 9:21 AM EMBLEM MAKER 08/03/2024 9:47 AM EMBLEM MAKER Hermelindo Butler MD LAB BLOOD ORDER ELANA Final Result Performing Organization Address [facility] [place] [address] * Immunotyping, serum with interpretation (08/03/2024 7:40 AM EMBLEM MAKER) Pathologist [facility] Immunosubtraction Please see comment Comment: NO PARAPROTEIN DETECTED Reviewed and signed by Hermelindo Mcnulty MD 08/04/2024 Blood 08/03/2024 7:40 AM EMBLEM MAKER 08/03/2024 8:24 AM EMBLEM MAKER Hermelindo Butler MD LAB BLOOD ORDER ELANA Final Result Performing Organization Address City/[facility] Co de Phone Number [facility] [place] [address] * (ABNORMAL) eGFR (08/03/2024 7:40 AM EMBLEM MAKER) eGFR 37(L) >=60 mL/min/1. 73 m2 Comment: [...] last reviewed 2021. Blood 08/03/2024 7:40 AM EMBLEM MAKER 08/03/2024 7:49 AM EMBLEM MAKER Hermelindo Butler MD LAB BLOOD ORDER ELANA Final Result Performing Organization Address City/[facility]/ZIP Co de Phone Number MT [facility] Department [place] [address] * (ABNORMAL) Differential, auto (08/03/2024 7:40 AM EMBLEM MAKER) Neutrophil abs 5.6 1.5 - 6.5 K/cumm Comment:Testing performed by : [facility], [address] [place] [phone] Lymphocyte abs 0.9 0.8 - 3.3 K/cumm C[facility]ER [facility] Comment:Testing performed by : [facility], [address] [place] [phone] Monocyte abs 0.6 0.2 - 0.8 K/cumm C[facility]ER [facility] Comment:Testing performed by : [facility], [address] [place], [place] [phone] Eosinophil abs 0.8(H) 0.0 - 0.5 K/cumm CERNER [facility] Comment:Testing performed by : [facility], [address] [place] [phone] Basophil abs 0.0 0.0 - 0.1 K/cumm CERNER [facility] Comment:Testing performed by : [facility], [address] [place] [phone] Neutrophil pct 70.4 % C[facility] Comment: Interpretive Data Percent cell count reference ranges are not reported, since discordance with absolute values may lead to misinterpretation of CBC data. Current Interpretive Data was last revised on 2017. Testing performed by: [facility], [address] [place] [phone] Lymphocyte pct 11.2 % C[facility]ER [facility] Comment: Interpretive Data Percent cell count reference ranges are not reported, since discordance with absolute values may lead to misinterpretation of CBC data. Current Interpretive Data was last revised on 2017. Testing performed by: [facility], [address] [place] [phone] Monocyte pct 7.7 % C[facility] Comment: Interpretive Data Percent cell count reference ranges are not reported, since discordance with absolute values may lead to misinterpretation of CBC data. Current Interpretive Data was last revised on 2017. Testing performed by: [facility], [address] [place] [phone] Eosinophil pct 10.1 % C[facility]ER [facility] Comment: Interpretive Data Percent cell count reference ranges are not reported, since discordance with absolute values may lead to misinterpretation of CBC data. Current Interpretive Data was last revised on 2017. Testing performed by: [facility], [address] [place] [phone] Basophil pct 0.6 % MT DUARTE Comment: Interpretive Data Percent cell count reference ranges are not reported, since discordance with absolute values may lead to misinterpretation of CBC data. Current Interpretive Data was last revised on 2017. Testing performed by: [facility], [address] [place] [phone] Blood 08/03/2024 7:40 AM EMBLEM MAKER 08/03/2024 7:47 AM EMBLEM MAKER Hermelindo Butler MD LAB BLOOD ORDER ELANA Final Result MT [facility] Department [place] [address] * (ABNORMAL) Immunoglobulin free light chains (08/03/2024 7:40 AM EMBLEM MAKER) Bunch/Lambda ratio [facility] See Comment 0.26 - 1.65 Comment: Unable to calculate exact result. Interpretive Data The Binding Site FreeLite assay procedure was used. Results from different manufacturers or methods may not be comparable. Serial testing should be performed using the same methods and instrumentation. Current Interpretive Data was last revised on 2023. Bunch free light chain [facility] <0.06(L) 0.33 - [...] revised on 2023. Blood 08/03/2024 7:40 AM EMBLEM MAKER 08/03/2024 8:24 AM EMBLEM MAKER Hermelindo Butler MD LAB BLOOD ORDER ELANA Final Result [facility] Department [place] [address] * (ABNORMAL) CBC with auto differential (08/03/2024 7:40 AM EMBLEM MAKER) WBC 7.9 3.8 - 9.9 K/cumm Comment:Testing performed by : [facility], [address] [place] [address] Hgb 13.7 13.0 - 17.5 g/dL MT SUAREZ Comment:Testing performed by : [facility], [address] [place] [address] Hct 41.5 38.9 - 50.3 % CERFRANK BJ Comment:Testing performed by : [facility], [address] [place] [address] Plt 163 150 - 400 K/cumm MT SUAREZ Comment:Testing performed by : [facility], [address] [place] [address] MPV 7.8 6.8 - 10.4 fL MT BJ Comment:Testing performed by : [facility], [address] [place] [address] RBC 4.50 4.30 - 5.80 M/cumm CERFRANK BJ Comment:Testing performed by : [facility], [address] [place] [address] MCV 92.1 81.3 - 96.4 fL CERFRANK BJ Comment:Testing performed by : [facility], [address] [place] [address] MCH 30.4 27.1 - 33.3 pg CERFRANK BJ Comment:Testing performed by : [facility], [address] [place] [phone] MCHC 33.0 32.3 - 35.7 g/dL MT [facility] Comment:Testing performed by : [facility], [address] [place] [phone] RDW CV 16.6(H) 11.1 - 14.9 % MT [facility] Comment:Testing performed by : [facility], [address] [place] [phone] NRBC abs 0.00 0.00 - 0.01 K/cumm MT [facility] Comment:Testing performed by : [facility], [address] [place] [phone] Blood 08/03/2024 7:40 AM EMBLEM MAKER 08/03/2024 7:47 AM EMBLEM MAKER Hermelindo Butler MD LAB BLOOD ORDER ELANA Final Result [facility] Department [place] [address] * (ABNORMAL) Protein electrophoresis with reflex, serum with interpretation (08/03/2024 7:40 AM EMBLEM MAKER) Protein, sr 5.7(L) 6.2 - 8.2 g/dL Albumin 3.8 3.2 - 5.0 g/dL [facility] SPEP interp Please see comment MT [facility] Comment: No apparent monoclonal peak Decreased gamma globulins Electrophoretic pattern appears similar to previous sample 07/14/24 *See immunotyping for further information Reviewed and signed by Hermelindo Mcnulty MD 08/04/2024 Blood 08/03/2024 7:40 AM EMBLEM MAKER 08/03/2024 8:24 AM EMBLEM MAKER Hermelindo Butler MD LAB BLOOD ORDER ELANA Final Result Performing Organization Address City/[facility] Co de Phone Number [facility] [place] [address] * Magnesium (08/03/2024 7:40 AM EMBLEM MAKER) [facility] Magnesium 2.2 1.4 - 2.5 mg/dL Blood 08/03/2024 7:40 AM EMBLEM MAKER 08/03/2024 9:36 AM EMBLEM MAKER Hermelindo Butler MD LAB BLOOD ORDER ELANA Final Result Performing Organization Address [facility] [place] [address] * Lactate dehydrogenase (LD) (08/03/2024 7:40 AM EMBLEM MAKER) [facility] Lactate dehydrogenase (LDH) 172 100 - 250 Units/L Blood 08/03/2024 7:40 AM EMBLEM MAKER 08/03/2024 7:49 AM EMBLEM MAKER Hermelindo Butler MD LAB BLOOD ORDER ELANA Final Result Performing Organization Address City/[facility] [place] [address] * (ABNORMAL) Hemoglobin A1c (08/03/2024 7:40 AM EMBLEM MAKER) [facility] Hgb A1C 5.8(H) 4.0 - 5.6 [...] a fasting glucose. Blood 08/03/2024 7:40 AM EMBLEM MAKER 08/03/2024 7:49 AM EMBLEM MAKER Lyndsey Fagan NP LAB BLOOD ORDERABLES [place] l Result Performing Organization Address City/[facility] Co de Phone Number [facility] [place] [address] * Gamma GT (08/03/2024 7:40 AM EMBLEM MAKER) Pathologist [facility] GGT 23 10 - 50 Units/L Blood 08/03/2024 7:40 AM EMBLEM MAKER 08/03/2024 9:36 AM EMBLEM MAKER Hermelindo Butler MD LAB BLOOD ORDER ELANA Final Result Performing Organization Address [facility] de Phone Number [facility] [place] [address] * (ABNORMAL) IgA (08/03/2024 7:40 AM EMBLEM MAKER) Pathologist [facility] Immunoglobulin A <50(L) 70 - 400 mg/dL Blood 08/03/2024 7:40 AM EMBLEM MAKER 08/03/2024 8:09 AM EMBLEM MAKER Hermelindo Butler MD LAB BLOOD ORDER ELANA Final Result Performing Organization Address [facility] de Phone Number [facility] [place] [address] * (ABNORMAL) IgM (08/03/2024 7:40 AM EMBLEM MAKER) Immunoglobulin M <25(L) 40 - 230 mg/dL Blood 08/03/2024 7:40 AM EMBLEM MAKER 08/03/2024 8:09 AM EMBLEM MAKER Hermelindo Butler MD LAB BLOOD ORDER ELANA Final Result Performing Organization Address City/State/[facility] Co de Phone Number [facility] Department [place] [address] * (ABNORMAL) IgG (08/03/2024 7:40 AM EMBLEM MAKER) [facility] Immunoglobulin G <300(L) 700 - 1,600 mg/dL Blood 08/03/2024 7:40 AM EMBLEM MAKER 08/03/2024 8:09 AM EMBLEM MAKER Hermelindo Butler MD LAB BLOOD ORDER ELANA Final Result Performing Organization Address [facility] de Phone Number [facility] Department [place] [address] * (ABNORMAL) Comprehensive metabolic panel (08/03/2024 7:40 AM EMBLEM MAKER) [facility] Sodium 141 135 - 145 mmol/L [...] [facility] Bilirubin, total 0.7 0.1 - 1.2 mg/dL [facility] Protein, pl 6.2(L) 6.5 - 8.5 g/dL [facility] Albumin 3.9 3.5 - 5.0 g/dL [facility] Alk phos 63 40 - 130 Units/L CERNER [facility] ALT 15 7 - 55 Units/L [facility] AST 17 10 - 50 Units/L [facility] Blood 08/03/2024 7:40 AM EMBLEM MAKER 08/03/2024 7:49 AM EMBLEM MAKER us Hermelindo Butler MD LAB BLOOD ORDER ELANA Final Result [facility] [place] [address] * (ABNORMAL) Urinalysis reflex to microscopic and culture Urine, clean voided (08/03/2024 7:30 AM EMBLEM MAKER) Color, ur Straw Yellow Clarity, ur Clear Clear [facility] Specific gravity, ur 1.012 1.003 - 1.030 [facility] pH, urine 5.5 [facility] [...] tendency for uric acid stone formation. Source: [facility] [place] Current Interpretive Data was last revised on 2017 Protein, ur ql Negative Negative [facility] Glucose, ur ql Negative Negative [facility] Ketones, ur Negative Negative [facility] Bilirubin, ur Negative Negative [facility] [...] CENTER Urine, clean voided 08/03/2024 7:30 AM EMBLEM MAKER 08/03/2024 7:30 AM EMBLEM MAKER Lyndsey Fagan NP LAB MICROBIOLOGY - GENERA L ORDERABLES Final Result Performing Organization Address [facility] de Phone Number [facility] [place] [address] * (ABNORMAL) Urinalysis, microscopic only (08/03/2024 7:30 AM EMBLEM MAKER) WBC, ur 6-10(A) 0 - 5 /HPF [...] CENTER Urine, clean voided 08/03/2024 7:30 AM EMBLEM MAKER 08/03/2024 7:30 AM EMBLEM MAKER Lyndsey Fagan NP LAB URINE ORDERABLES [place] l Result Performing Organization Address [facility] de Phone Number [facility] [place] [address] * Urine culture Urine, clean voided (08/03/2024 7:30 AM EMBLEM MAKER) Report Final Report: No growth Urine, clean voided 08/03/2024 7:30 AM EMBLEM MAKER 08/03/2024 9:59 AM EMBLEM MAKER Narrative [facility] - 08/04/2024 11:14 AM EMBLEM MAKER Testing performed by [facility] Microbiology Laboratory ([phone]) Hermelindo Butler MD LAB MICROBIOLOG Y - GENERAL ORDERABLES Final Result MT SUAREZ [facility] Department [place] [address] * Immunotyping, serum with interpretation (07/13/2024 7:40 AM EMBLEM MAKER) Immunosubtraction Please see comment Comment: NO PARAPROTEIN DETECTED Reviewed and signed by Rufino Huff MD, PhD 07/14/2024 Blood 07/13/2024 7:40 AM EMBLEM MAKER 07/13/2024 8:42 AM EMBLEM MAKER Hermelindo Butler MD LAB BLOOD ORDER ELANA Final Result Performing Organization Address City/[facility] Co de Phone Number MT SU[facility]Z [facility] Department [place] [address] * (ABNORMAL) eGFR (07/13/2024 7:40 AM EMBLEM MAKER) eGFR 57(L) >=60 mL/min/1. 73 m2 Comment: [...] last reviewed 2021. Blood 07/13/2024 7:40 AM EMBLEM MAKER 07/13/2024 7:47 AM EMBLEM MAKER Hermelindo Butler MD LAB BLOOD ORDER ELANA Final Result MT [facility] [place] [address] * Differential, auto (07/13/2024 7:40 AM EMBLEM MAKER) Neutrophil abs 5.4 1.5 - 6.5 K/cumm Comment:Testing performed by : [facility], [address] [place] [phone] Lymphocyte abs 0.9 0.8 - 3.3 K/cumm CERNER [facility] Comment:Testing performed by : [facility], [address] [place], [place] [phone] Monocyte abs 0.5 0.2 - 0.8 K/cumm CERNER BJ Comment:Testing performed by : [facility], [address] [place], [place] [phone] Eosinophil abs 0.5 0.0 - 0.5 K/cumm CERNER BJ Comment:Testing performed by : [facility], [address] [place] [phone] Basophil abs 0.0 0.0 - 0.1 K/cumm CERNER BJ Comment:Testing performed by : [facility], [address] [place] [phone] Neutrophil pct 73.6 % CERNER BJ Comment: Interpretive Data Percent cell count reference ranges are not reported, since discordance with absolute values may lead to misinterpretation of CBC data. Current Interpretive Data was last revised on 2017. Testing performed by: [facility], [address] [place] [phone] Lymphocyte pct 12.0 % CERNER BJ Comment: Interpretive Data Percent cell count reference ranges are not reported, since discordance with absolute values may lead to misinterpretation of CBC data. Current Interpretive Data was last revised on 2017. Testing performed by: [facility], [address] [place] [phone] Monocyte pct 7.4 % MT SUAREZ Comment: Interpretive Data Percent cell count reference ranges are not reported, since discordance with absolute values may lead to misinterpretation of CBC data. Current Interpretive Data was last revised on 2017. Testing performed by: [facility], [address] [place] [phone] Eosinophil pct 6.5 % MT SUAREZ Comment: Interpretive Data Percent cell count reference ranges are not reported, since discordance with absolute values may lead to misinterpretation of CBC data. Current Interpretive Data was last revised on 2017. Testing performed by: [facility], [address] [place] [phone] Basophil pct 0.5 % MT SUAREZ Comment: Interpretive Data Percent cell count reference ranges are not reported, since discordance with absolute values may lead to misinterpretation of CBC data. Current Interpretive Data was last revised on 2017. Testing performed by: [facility], [address] [place] [phone] Blood 07/13/2024 7:40 AM EMBLEM MAKER 07/13/2024 7:46 AM EMBLEM MAKER Hermelindo Butler MD LAB BLOOD ORDER ELANA Final Result [facility] Department [place] [address] * (ABNORMAL) Immunoglobulin free light chains (07/13/2024 7:40 AM EMBLEM MAKER) Bunch/Lambda ratio [facility] See Comment 0.26 - 1.65 Comment: Unable to calculate exact result. Interpretive Data The Binding Site FreeLite assay procedure was used. Results from different manufacturers or methods may not be comparable. Serial testing should be performed using the same methods and instrumentation. Current Interpretive Data was last revised on 2023. Bunch free light chain [facility] <0.06(L) 0.33 - 1.94 mg/dL MT SUAREZ [...] revised on 2023. Blood 07/13/2024 7:40 AM EMBLEM MAKER 07/13/2024 8:42 AM EMBLEM MAKER Hermelindo Butler MD LAB BLOOD ORDER ELANA Final Result MT [facility] Department [place] [address] * (ABNORMAL) CBC with auto differential (07/13/2024 7:40 AM EMBLEM MAKER) WBC 7.4 3.8 - 9.9 K/cumm Comment:Testing performed by : [facility], [address] [place] [address] Hgb 14.4 13.0 - 17.5 g/dL CERFRANK BJ Comment:Testing performed by : [facility], [address] [place] [address] Hct 44.1 38.9 - 50.3 % CERFRANK BJ Comment:Testing performed by : [facility], [address] [place] [address] Plt 174 150 - 400 K/cumm CERFRANK BJ Comment:Testing performed by : [facility], [address] [place] [address] MPV 7.5 6.8 - 10.4 fL CERFRANK BJ Comment:Testing performed by : [facility], [address] [place] [address] RBC 4.75 4.30 - 5.80 M/cumm CERFRANK BJ Comment:Testing performed by : [facility], [address] [place], [place] [phone] MCV 92.8 81.3 - 96.4 fL MT SUAREZ Comment:Testing performed by : [facility], [address] [place], [place] [phone] MCH 30.2 27.1 - 33.3 pg MT SUAREZ Comment:Testing performed by : [facility], [address] [place], [place] [phone] MCHC 32.6 32.3 - 35.7 g/dL MT SUAREZ Comment:Testing performed by : [facility], [address] [place], [place] [phone] RDW CV 16.2(H) 11.1 - 14.9 % MT SUAREZ Comment:Testing performed by : [facility], [address] [place], [place] [phone] NRBC abs 0.00 0.00 - 0.01 K/cumm MT SUAREZ Comment:Testing performed by : [facility], [address] [place], [place] [phone] Blood 07/13/2024 7:40 AM EMBLEM MAKER 07/13/2024 7:46 AM EMBLEM MAKER Hermelindo Butler MD LAB BLOOD ORDER ELANA Final Result MT SUAREZ [facility] Department [place] [address] * (ABNORMAL) Protein electrophoresis with reflex, serum with interpretation (07/13/2024 7:40 AM EMBLEM MAKER) Protein, sr 5.7(L) 6.2 - 8.2 g/dL Albumin 3.7 3.2 - 5.0 g/dL MT [facility] Alpha-1 globulin 0.3 0.2 - 0.4 g/dL MT [facility] Alpha-2 globulin 0.6 0.5 - 1.0 g/dL MT [facility] Beta-1 globulin 0.4 0.3 - 0.6 g/dL [...] MD, PhD 07/14/2024 Blood 07/13/2024 7:40 AM EMBLEM MAKER 07/13/2024 8:42 AM EMBLEM MAKER Hermelindo Butler MD LAB BLOOD ORDER ELANA Final Result Performing Organization Address City/[facility] Co de Phone Number [facility] Department [place] [address] * Magnesium (07/13/2024 7:40 AM EMBLEM MAKER) Pathologist [facility] Magnesium 2.2 1.4 - 2.5 mg/dL Blood 07/13/2024 7:40 AM EMBLEM MAKER 07/13/2024 7:47 AM EMBLEM MAKER Hermelindo Butler MD LAB BLOOD ORDER ELANA Final Result Performing Organization Address City/[facility] Co de Phone Number [facility] Department [place] [address] * Lactate dehydrogenase (LD) (07/13/2024 7:40 AM EMBLEM MAKER) Lactate dehydrogenase (LDH) 152 100 - 250 Units/L Blood 07/13/2024 7:40 AM EMBLEM MAKER 07/13/2024 7:47 AM EMBLEM MAKER Hermelindo Butler MD LAB BLOOD ORDER ELANA Final Result Performing Organization Address City/[facility] Co de Phone Number [facility] [place] [address] * Gamma GT (07/13/2024 7:40 AM EMBLEM MAKER) Pathologist [facility] GGT 27 10 - 50 Units/L Blood 07/13/2024 7:40 AM EMBLEM MAKER 07/13/2024 7:47 AM EMBLEM MAKER Hermelindo Butler MD LAB [place] [address] * (ABNORMAL) IgA (07/13/2024 7:40 AM EMBLEM MAKER) [facility] Immunoglobulin A <50(L) 70 - 400 mg/dL Blood 07/13/2024 7:40 AM EMBLEM MAKER 07/13/2024 7:59 AM EMBLEM MAKER Hermelindo Butler MD LAB BLOOD ORDER ELANA Final Result Performing Organization Address City/[facility]/[place] [address] * (ABNORMAL) IgM (07/13/2024 7:40 AM EMBLEM MAKER) [facility] Immunoglobulin M <25(L) 40 - 230 mg/dL Blood 07/13/2024 7:40 AM EMBLEM MAKER 07/13/2024 7:59 AM EMBLEM MAKER Hermelindo Butler MD LAB BLOOD ORDER ELANA Final Result Performing Organization Address City/[facility]/[place] [address] * (ABNORMAL) IgG (07/13/2024 7:40 AM EMBLEM MAKER) [facility] Immunoglobulin G <300(L) 700 - 1,600 mg/dL Blood 07/13/2024 7:40 AM EMBLEM MAKER 07/13/2024 7:59 AM EMBLEM MAKER Hermelindo Butler MD LAB BLOOD ORDER ELANA Final Result [facility] Department [place] [address] * (ABNORMAL) Comprehensive metabolic panel (07/13/2024 7:40 AM EMBLEM MAKER) Sodium 144 135 - 145 mmol/L Potassium, [...] CENTER Creatinine 1.34(H) 0.80 - 1.30 mg/dL [facility] Glucose 125 70 - 199 mg/dL [facility] [...] CERNER [facility] Bilirubin, total 0.7 0.1 - 1.2 mg/dL [facility] Protein, pl 6.2(L) 6.5 - 8.5 g/dL [facility] Albumin 4.1 3.5 - 5.0 g/dL [facility] Alk phos 65 40 - 130 Units/L [facility] ALT 18 7 - 55 Units/L [facility] AST 16 10 - 50 Units/L CERNER [facility] Blood 07/13/2024 7:40 AM EMBLEM MAKER 07/13/2024 7:47 AM EMBLEM MAKER us Hermelindo Butler MD LAB BLOOD ORDER ELANA Final Result Performing Organization Address [facility] [place] [address] * aPTT (07/13/2024 7:24 AM EMBLEM MAKER) aPTT 28 28 - 38 sec Comment: Interpretive Data Heparin therapeutic range: 66.0 - 100.0 seconds. Range based on correlation with therapeutic heparin activity range of 0.3 - 0.7 Units/mL. Current interpretive data was last revised on 2023. Blood 07/13/2024 7:24 AM EMBLEM MAKER 07/13/2024 7:59 AM EMBLEM MAKER Hermelindo Butler MD LAB BLOOD ORDER ELANA Final Result Performing Organization Address [facility] de Phone Number [facility] [place] [address] * Protime-INR (07/13/2024 7:24 AM EMBLEM MAKER) PT 11.5 9.7 - 13.0 sec INR 1.06 0.90 - 1.20 [facility] Comment: Interpretive data Oral anticoagulant therapeutic ranges: Venous thromboembolism prophylaxis or treatment: 2.0-3.0 CARDIOLOGY Standard range: 2.0-3.0 High-intensity range: 2.5-3.5 Refer to indication-specific guidelines for appropriate target ranges for prosthetic heart valve replacement. Current interpretive data was last revised on 2019. Blood 07/13/2024 7:24 AM EMBLEM MAKER 07/13/2024 7:59 AM EMBLEM MAKER us Hermelindo Butler MD LAB BLOOD ORDER ELANA Final Result Performing Organization Address [facility] Co de Phone Number [facility] Department [place] [address] * Hepatitis C antibody (10/16/2021 9:50 AM CDT) Hep C Ab Nonreactive Nonreactive [facility] Comment:Antibodies to HCV no t detected. Does NOT exclude the possibility of recent exposure to HCV. Blood 10/16/2021 9:50 AM CDT 10/16/2021 11:22 AM CDT Hermelindo dupree MD LAB MICROBIOLOGY - GENERAL ORDERABLES Edited Result - Final Performing Organization Address [facility] Co de Phone Number [facility] Department [place] [address] from Last 3 Months or Most Recently Relevant to Health [place] [address] MEDICARE [employer] SENIOR SUPPLEMENT MEDICARE T SENIOR SUPPLEMENT MEDICARE [place] [address] Advance Directives For more information, please contact: [phone] Documents on File Type Date Recorded Patient Oracle Sql Developer Expl anation ADVANCE DIRECTIVE 11/29/2017 11:05 AM FOX R OF TRUST ADVISOR ADVANCE DIRECTIVE 11/12/2017 3:59 PM POWER OF TRUST ADVISOR * Full Code (Latest Code Status on [...] 2:28 PM 05/31/2021 2:39 PM Care Teams Sawyer [employer] Relationship Specialty Start Date End Date Jatin Gamble MD [address] [place] [address] PCP - General 10/07/16 Hermelindo Butler MD [address] [place], [place] [id number] Medical Oncologist/Hematologi Medical Oncology 12/02/17 Roberto Rojo MD [address] [place] [address] Medical Oncologist/Hematologi Hematology and Oncology 12/02/17 Jatin Gamble MD [address] [place] [address] Referring Physician Internal Medicine 12/02/17 Lyndsey Fagan NP [address] [place] [address] Nurse Practitioner Medical Oncology 08/03/20 Erlin Servin MD [address] [place] [address] [place] [address] Consulting Physician Otolaryngology 10/04/22 [place] [address] [address] Consulting Physician Urology 05/28/23 Salvador Norris MD [facility] [id number] [place] [address] Consulting Physician Infectious Diseases 09/15/24 Miscellaneous, Not In File 09/15/24
--- OUTSIDE RECORDS SUMMARY | 2024-10-05 13:03 | XMS_ITS | Referral Summary ---
Author Organization [facility] Address [address] [place] [address] Care Team Providers Care Manager Statistical Name Role Phone Jatin Gamble MD Primary Care Provider Hermelindo Butler MD Unavailable Roberto Rojo MD Unavailable [phone] Jatin Gamble MD Unavailable [phone] Lyndsey Fagan NP Unavailable Erlin Servin MD Unavailable [phone] Julian Valdez MD Unavailable [phone] Salvador Norris MD Unavailable Miscellaneous, Not In File Unavailable Unava ilable Encounters Date Type Department Care Team Description 09/28/2024 9:30 AM CDT Infusion [facility] - Infusion [address] [facility] Floor 6 [place] [address] Multiple myeloma in relapse (HCC) (Primary Dx); Multiple myeloma in remission (HCC) 09/28/2024 7:30 AM CDT Clinical Support [facility] - Lab Collection [address] [facility] Floor 6 [place] [address] Multiple myeloma in remission (HCC); Multiple myeloma in relapse (HCC); Multiple myeloma, remission status unspecified (HCC) 09/28/2024 8:30 AM CDT Office Visit [facility] Transplant [address] [place] [phone] Lyndsey Fagan NP Multiple myeloma, remission status unspecified (HCC) (Primary Dx); Multiple myeloma in remission (HCC); Multiple myeloma in relapse (HCC) 09/15/[address] [facility] [address] [place] [address] Preeti Wayne RPh 09/11/2024 1:43 AM CDT - 09/15/2024 5:22 PM CDT Hospital Encounter [place] [id number] [place] [address] Emory Santana MD [place], MD Bonifacio Carrillo, Choco Murcia, DO Oliguria (Primary Dx); Bacteremia Discharge Disposition: Discharge to home, home health skilled care 09/10/2024 Orders Only Urology Yesika Capone PA Elevated prostate specific antigen (PSA) (Primary Dx) 09/07/2024 Orders Only [facility]plant [address] [place] [phone] Hermelindo Hill MD 09/06/2024 Orders Only [facility]plant [address] [place] [address] Lyndsey Fagan NP 08/31/2024 8:45 AM CDT Clinical Support [facility] - Lab Collection [address] [place] [address] 6 [place] [address] Multiple myeloma in relapse (HCC); Multiple myeloma not having achieved remission (HCC); Multiple myeloma, remission status unspecified (HCC) 08/31/2024 10:00 AM CDT Infusion [facility] - Infusion [address] [facility] Floor 6 [place] [address] Multiple myeloma in relapse (HCC) (Primary Dx); Multiple myeloma in remission (HCC) 08/31/2024 9:00 AM CDT Office Visit [facility] Transplant [address] [place] [phone] Hermelindo Hill MD Multiple myeloma in relapse (HCC) (Primary Dx); Multiple myeloma in remission (HCC) 08/31/2024 8:15 AM CDT Clinical Support [facility] Oncology Lab [facility] [address] [address] Multiple myeloma not having achieved remission (HCC); Multiple myeloma in remission (HCC) 08/30/2024 Orders Only [facility] Scanning, Provider 08/27/2024 Documentation Nephrology Ani Anne LCSW 08/27/2024 Orders Only [facility] [address] [place] [phone] Hermelindo Hill MD Multiple myeloma not having achieved remission (HCC) (Primary Dx); JOHN (acute kidney injury) 08/23/2024 11:13 PM CDT - 08/26/2024 4:50 PM CDT Hospital Encounter [address] [phone] Hermelindo Hill MD [place], Thabet J.M., MD JOHN (acute kidney injury) (Primary Dx) Discharge Disposition: Discharge to home or self care 08/25/2024 6:50 AM CDT Ancillary Procedure [facility] Vascular Lab IP [address] [facility] [address] [place] [address] 08/23/2024 7:10 PM CDT - 08/23/2024 11:59 PM CDT Hospital Encounter [facility] 1 [place] [address] Discharge Disposition: Discharge to home or self care 08/23/2024 Orders Only [address] [phone] Hermelindo Hill MD 08/23/2024 Orders Only [facility] [address] [place] [phone] Hermelindo Hill MD Multiple myeloma, remission status unspecified (HCC) (Primary Dx) 08/23/2024 5:24 PM CDT - 08/23/2024 11:59 PM CDT Hospital Encounter [facility] ([facility]) [address] [place] [phone] Hermelindo Hill MD Elevated serum creatinine (Primary Dx); Multiple myeloma, remission status unspecified (HCC) Discharge Disposition: Discharge to home or self care 08/20/2024 Orders Only [facility] Scanning, Provider 08/10/2024 Orders Only [facility] Scanning, Provider 08/06/2024 Telephone [facility]plant [address] [place] [phone] Lyndsey Fagan NP 08/06/2024 Orders Only [facility] [address] [place] [phone] Lyndsey Fagan NP Multiple myeloma, remission status unspecified (HCC) (Primary Dx) 08/06/2024 1:45 PM CHARTER DRIVER Clinical Support [facility] - Lab Collection [address] [place] [address] 08/06/2024 1:00 PM CHARTER DRIVER - 08/06/2024 11:59 PM CHARTER DRIVER Hospital Encounter [facility] 1 [place] [address] Multiple myeloma, remission status unspecified (HCC) Discharge Disposition: Discharge to home or self care 08/06/2024 Orders Only [facility] [address] [place] [phone] Lyndsey Fagan NP JONH (acute kidney injury) (Primary Dx) 08/06/2024 Orders Only [facility] [address] [place] [phone] Hermelindo Hill MD Multiple myeloma, remission status unspecified (HCC) (Primary Dx) 08/06/2024 7:15 AM CHARTER DRIVER Clinical Support [facility] - Lab Collection [address] [place] [address] Multiple myeloma in relapse (HCC) (Primary Dx); Multiple myeloma, remission status unspecified (HCC); JOHN (acute kidney injury) 08/06/2024 8:00 AM CHARTER DRIVER Infusion [facility] - Infusion [address] 6 [place] [address] Multiple myeloma not having achieved remission (HCC) (Primary Dx); Hypogammaglobuline hakeem 08/03/2024 Orders Only [facility] Transplant [address] [facility] 6 [place] [address] Hermelindo Hill MD 08/03/2024 Orders Only [facility] [address] [phone] Hermelindo Hill MD 08/03/2024 Orders Only [facility] [address] [place] [phone] Hermelindo Hill MD 08/03/2024 9:30 AM CHARTER DRIVER Infusion [facility] Infusion [address] [facility] 6 [place] [address] Multiple myeloma in relapse (HCC) (Primary Dx); Multiple myeloma in remission (HCC) 08/03/2024 7:30 AM CHARTER DRIVER Clinical Support [facility] - Lab Collection [facility] Floor 6 [place] [address] Multiple myeloma in remission (HCC); Multiple myeloma, remission status unspecified (HCC); Multiple myeloma in relapse (HCC) 08/03/2024 8:30 AM CHARTER DRIVER Office Visit [facility] [address] [phone] Hermelindo Hill MD Multiple myeloma, remission status unspecified (HCC) (Primary Dx); Multiple myeloma in remission (HCC); Multiple myeloma in relapse (HCC) 08/02/2024 Telephone [facility]plant [address] [place] [address] Lyndsey Fagan NP 07/30/2024 Telephone [facility] [address] [place] [phone] Hermelindo Hill MD 07/27/2024 Telephone [facility] [address] [place] [phone] Hermelindo Hill MD 07/26/2024 Orders Only [facility] [address] [place] [phone] Hermelindo Hill MD 07/26/2024 Orders Only [facility] [address] [place] [phone] Hermelindo Hill MD 07/26/2024 Telephone [facility] [address] [place] [phone] Margaret Kay, Curtis Medical Question/Miscellan eous 07/13/2024 Telephone [facility] [address] [place] [phone] Fadumo Tobar RN 07/13/2024 10:00 AM CHARTER DRIVER Infusion [facility] - Infusion [address] [place] [address] Multiple myeloma in relapse (HCC) (Primary Dx); Multiple myeloma in remission (HCC) 07/13/2024 8:00 AM CHARTER DRIVER Clinical Support [facility] - Lab Collection [address] [place] [address] Multiple myeloma in remission (HCC); Multiple myeloma in relapse (HCC); Multiple myeloma, remission status unspecified (HCC) 07/13/2024 9:00 AM CHARTER DRIVER Office Visit [facility] Transplant [address] [place] [phone] Hermelindo Hill MD Multiple myeloma, remission status unspecified (HCC) (Primary Dx); Multiple myeloma in remission (HCC); Hypogammaglobuline hakeem from Last 3 Months Allergies Active Allergy [...] by mouth daily 60 tablet 08/27/19 25 Active budesonide (Pulmicort) 0.5 mg/2 mL nebulizer solutionIndicat ions:Chronic pansinusitis Mix one respule with 10 ml of normal saline for the right nostril and also with the left nostril using a bulb syringe 84 mL 12/26 025 Discontinued sodium chloride 0.9% 0.9 % irrigationIndic ations:Chronic pansinusitis Use as directed with Pulmicort 1000 mL 06/03/20 025 Discontinued amLODIPine (NORVASC) 10 mg tablet Take 0.5 tablets (5 mg total) by mouth daily 15 tablet 08/28/19 025 Discontinued ampicillin 2,000 mg in sodium chloride 0.9% 100 mL IVPBIndications :Blood Stream/Endovasc ular Infection Infuse 2,000 mg into a venous catheter every 6 (six) hours for 30 minutes for 10 days at 200 mL/hr 09/16/19 025 Active Problems Patient Care Coordination No te Formatting of this note is d ifferent from the original. BMT Inpatient Care Coordination Overview Diagnosis [place] Floor [address] Treatment Plan Clinical Trial [id number] Ramesh Reason for Admission JOHN Transplant/IEC Planning [...] Medical Assistants Post-Discharge Follow-Up Living Situation/Distance from [place], [place] (45 min) Caregiver Self, Lab/Transfusion Frequency Phone: Fax: Venous Access & Care implanted vascular device Local Oncologist Contact Phone: Fax: Post-Discharge Office Visit (H30) [facility] Miscellaneous Notes: Problem Noted Date Diagnosed [...] is a risk of orbital injury and LIQUID COMPOUNDER injury which could result in blindness or [...] this. Assessment & Plan (07/09/2022 7:42 PM CHARTER DRIVER): I talked with him quite a bit [...] weeks. Assessment & Plan (05/26/2022 4:16 PM CHARTER DRIVER): He does have pretty significant sinusitis and [...] day. Assessment & Plan (05/26/2022 4:17 PM CHARTER DRIVER): It is very possible that his cough could be due to sinusitis also. Hopefully that will continue to improve as we treat. He understands. Immunocompromised 11/13/2021 Multiple myeloma not having achieved remission 0 10/28/2021 Cancer Staging:Clinical stage from 10/16/2021:RISS Stage II([id number]-9-[id number] (mg/L): 3.7, Albumin (g/dL): 4.2, ISS: Stage [...] and Dexamethasone in June 2021 Clinical trial [id number] initiated on 10/29/21; C46D1 08/03/24. BMT following [...] he got a TTE on 10/19 at [facility] however unclear why not currently in the system - May need to repeat TTE prior to treatment if results unavailable - Continue OI ppx with acyclovir 400mg BID - Begin trial [id number], a Bispecific Antibody Targeting BCMA treatment - [...] he got a TTE on 10/19 at [facility] however unclear why not currently in the system - May need to repeat TTE prior to treatment if results unavailable - Continue OI ppx with acyclovir 400mg BID - Begin trial [id number], a Bispecific Antibody Targeting BCMA treatment - [...] BID Assessment & Plan (05/31/2021 10:51 AM CHARTER DRIVER): Continue home pepcid, asx Renal mass 05/30/2021 Assessment & Plan (05/31/2021 10:51 AM CHARTER DRIVER): Admitted for observation after L renal mass [...] 07/17/2023 Assessment & Plan (05/31/2021 10:52 AM CHARTER DRIVER): Follows with oncology on daratumumab monotherapy -counts [...] blood in urine Follow up pathology from srqww[facility] high-grade papillary urothelial carcinoma (grade 2) --follow [...] blood in urine Follow up pathology from xwaffa[facility]-[id number] high-grade papillary urothelial carcinoma (grade 2) --follow [...] supplementation Assessment & Plan (05/31/2021 10:51 AM CHARTER DRIVER): Stable on home losartan, nebivolol, triamterene-HCTZ Secondary [...] Immunization Administration Dates Next Due Influenza, Quadrivalent, Mean l Culture-based MDCK, Antibiotic Free, Intramuscular 03/08/2023 [...] drink = 0.6 oz pur e alcohol) [facility] Utilities Answer Date Recorded In the past 12 months has [employer], gas, oil, or water [employer] threatened to shut off services in your [...] How often do you attend chur or latter day services? More than 4 times per year 09/13/2024 Do you belong to any clubs o r organizations such as jew groups, unions, fraternal or athletic groups, or [...] any time in the past 12 m [facility], were you homeless or living in a correction (including now)? No 09/13/2024 Personal Safety Answer Date Recorded Have you ever been in or are you currently in a harmful physical or emotional relationship or is someone making you feel afraid or unsafe? Denies 09/11/2024 Sex and Gender Information Value Date Recorded Sex Assigned at Not on file Legal Sex 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 CHARTER DRIVER Gender Identity Not on file Sexual Orientation Not on file Last Filed Vital Signs Vital Sign Reading Time Taken Comments Blood Pressure 152/82 09/28/2024 9:54 AM CDT Pulse 59 09/28/2024 8:11 AM CDT Temperature 36.7 C (98.1 F) 09/28/2024 8:11 AM CDT Respiratory Rate 18 09/28/2024 8:14 AM CDT Oxygen Saturation 98% 09/28/2024 8:11 AM CDT Inhaled Oxygen Concentration - - Weight 126.6 kg (279 lb) 09/28/2024 8:10 AM CDT Height 175.3 cm (5' 9.02 ) 08/23/2024 11:15 PM C DT Body Mass Index 41.18 08/23/2024 11:15 PM CDT Plan of Treatment Not on file Medical Devices Implanted Type Area Rubble Placer Device Identifier Shelf Expiration Date Model / Serial / Lot Other - See Comments Other - see comments Right: Chest Wall Description:Upon arrival to IR, not accessed Procedures Procedure Name Priority Date/Time Associated Diagnosis Comments EGFR STAT 09/28/2024 7:43 AM CDT Multiple myeloma in relapse (HCC) EGFR Routine 09/28/2024 7:43 AM CDT Multiple myeloma, remission status unspecified (HCC) DIFFERENTIAL AUTO STAT 09/28/2024 7:4 3 AM CDT Multiple myeloma in relapse (HCC) COMPREHENSIVE METABOLIC PANEL Routine 09/28/2024 7:43 AM CDT Multiple myeloma, remission status unspecified (HCC) IGA Routine 09/28/2024 7:43 AM CDT Multiple myeloma, remission status unspecified (HCC) IGG Routine 09/28/2024 7:43 AM CDT Multiple myeloma, remission status unspecified (HCC) IGM Routine 09/28/2024 7:43 AM CDT Multiple myeloma, remission status unspecified (HCC) IMMUNOGLOBULIN FREE LIGHT CHAINS Routine 09/28/2024 7:43 AM CDT Multiple myeloma, remission status unspecified (HCC) PROTEIN ELECTROPHORESIS, WITH REFLEX, SERUM Routine 09/28/2024 7:43 AM CDT Multiple myeloma, remission status unspecified (HCC) IMMUNOTYPING Routine 09/28/2024 7:43 AM CDT Multiple myeloma, remission status unspecified (HCC) CBC WITH AUTO DIFFERENTIAL STAT 09/28/2024 7:43 AM CDT Multiple myeloma in relapse (HCC) COMPREHENSIVE METABOLIC PANEL STAT 09/28/2024 7:43 AM CDT Multiple myeloma in relapse (HCC) MAGNESIUM STAT 09/28/2024 7:43 AM CDT Multiple myeloma in relapse (HCC) GAMMA GT STAT 09/28/2024 7:43 AM CDT Multiple myeloma in relapse (HCC) PROTIME-INR STAT 09/28/2024 7:43 AM CDT Multiple myeloma in relapse (HCC) APTT STAT 09/28/2024 7:43 AM CDT Multiple myeloma in relapse (HCC) LACTATE DEHYDROGENASE Routine 09/28/2024 7:43 AM CDT Multiple myeloma in relapse (HCC) CO INSJ NON-TUNNELED CENTRAL VENOUS CATH AGE 7 [...] Read Routine (OP Routine) 08/06/2024 2:42 PM CHARTER DRIVER Multiple myeloma, remission status unspecified (HCC) URINALYSIS, MICROSCOPIC ONLY Routine 08/06/2024 9:19 AM CHARTER DRIVER JOHN (acute kidney injury) PROTEIN / CREATININE RATIO, URINE, RANDOM Routine 08/06/2024 9:19 AM CHARTER DRIVER JOHN (acute kidney injury) URINALYSIS AND REFLEX TO MICROSCOPIC Routine 08/06/2024 9:19 AM CHARTER DRIVER JOHN (acute kidney injury) EGFR Routine 08/06/2024 7:43 AM CHARTER DRIVER Multiple myeloma, remission status unspecified (HCC) DIFFERENTIAL AUTO Routine 08/06/2024 7:4 3 AM CHARTER DRIVER Multiple myeloma, remission status unspecified (HCC) LACTATE DEHYDROGENASE Routine 08/06/2024 7:43 AM CHARTER DRIVER Multiple myeloma, remission status unspecified (HCC) CBC WITH AUTO DIFFERENTIAL Routine 08/06/2024 7:43 AM CHARTER DRIVER Multiple myeloma, remission status unspecified (HCC) COMPREHENSIVE METABOLIC PANEL Routine 08/06/2024 7:43 AM CHARTER DRIVER Multiple myeloma, remission status unspecified (HCC) LIPID PANEL Routine 08/06/2024 7:43 AM CHARTER DRIVER Multiple myeloma, remission status unspecified (HCC) PSA DIAGNOSTIC Routine 08/06/2024 7:43 AM CHARTER DRIVER Multiple myeloma, remission status unspecified (HCC) PROTIME-INR STAT 08/03/2024 9:21 AM CHARTER DRIVER Multiple myeloma in relapse (HCC) APTT STAT 08/03/2024 9:21 AM CHARTER DRIVER Multiple myeloma in relapse (HCC) MAGNESIUM STAT 08/03/2024 7:40 AM CHARTER DRIVER Multiple myeloma in relapse (HCC) GAMMA GT STAT 08/03/2024 7:40 AM CHARTER DRIVER Multiple myeloma in relapse (HCC) EGFR Routine 08/03/2024 7:40 AM CHARTER DRIVER Multiple myeloma, remission status unspecified (HCC) DIFFERENTIAL AUTO Routine 08/03/2024 7:4 0 AM CHARTER DRIVER Multiple myeloma, remission status unspecified (HCC) CBC WITH AUTO DIFFERENTIAL Routine 08/03/2024 7:40 AM CHARTER DRIVER Multiple myeloma, remission status unspecified (HCC) COMPREHENSIVE METABOLIC PANEL Routine 08/03/2024 7:40 AM CHARTER DRIVER Multiple myeloma, remission status unspecified (HCC) IGA Routine 08/03/2024 7:40 AM CHARTER DRIVER Multiple myeloma, remission status unspecified (HCC) IGG Routine 08/03/2024 7:40 AM CHARTER DRIVER Multiple myeloma, remission status unspecified (HCC) IGM Routine 08/03/2024 7:40 AM CHARTER DRIVER Multiple myeloma, remission status unspecified (HCC) IMMUNOGLOBULIN FREE LIGHT CHAINS Routine 08/03/2024 7:40 AM CHARTER DRIVER Multiple myeloma, remission status unspecified (HCC) LACTATE DEHYDROGENASE Routine 08/03/2024 7:40 AM CHARTER DRIVER Multiple myeloma, remission status unspecified (HCC) PROTEIN ELECTROPHORESIS, WITH REFLEX, SERUM Routine 08/03/2024 7:40 AM CHARTER DRIVER Multiple myeloma, remission status unspecified (HCC) IMMUNOTYPING Routine 08/03/2024 7:40 AM CHARTER DRIVER Multiple myeloma, remission status unspecified (HCC) HEMOGLOBIN A1C Routine 08/03/2024 7:40 AM CHARTER DRIVER Multiple myeloma, remission status unspecified (HCC) URINALYSIS, MICROSCOPIC ONLY Routine 08/03/2024 7:30 AM CHARTER DRIVER Multiple myeloma, remission status unspecified (HCC) URINE CULTURE Routine 08/03/2024 7:30 AM CHARTER DRIVER URINALYSIS AND REFLEX TO MICROSCOPIC AND CULTURE Routine 08/03/2024 7:30 AM CHARTER DRIVER Multiple myeloma, remission status unspecified (HCC) EGFR STAT 07/13/2024 7:40 AM CHARTER DRIVER Multiple myeloma in relapse (HCC) DIFFERENTIAL AUTO STAT 07/13/2024 7:4 0 AM CHARTER DRIVER Multiple myeloma in relapse (HCC) IGA Routine 07/13/2024 7:40 AM CHARTER DRIVER Multiple myeloma, remission status unspecified (HCC) IGG Routine 07/13/2024 7:40 AM CHARTER DRIVER Multiple myeloma, remission status unspecified (HCC) IGM Routine 07/13/2024 7:40 AM CHARTER DRIVER Multiple myeloma, remission status unspecified (HCC) IMMUNOGLOBULIN FREE LIGHT CHAINS Routine 07/13/2024 7:40 AM CHARTER DRIVER Multiple myeloma, remission status unspecified (HCC) PROTEIN ELECTROPHORESIS, WITH REFLEX, SERUM Routine 07/13/2024 7:40 AM CHARTER DRIVER Multiple myeloma, remission status unspecified (HCC) IMMUNOTYPING Routine 07/13/2024 7:40 AM CHARTER DRIVER Multiple myeloma, remission status unspecified (HCC) LACTATE DEHYDROGENASE Routine 07/13/2024 7:40 AM CHARTER DRIVER Multiple myeloma in relapse (HCC) GAMMA GT STAT 07/13/2024 7:40 AM CHARTER DRIVER Multiple myeloma in relapse (HCC) MAGNESIUM STAT 07/13/2024 7:40 AM CHARTER DRIVER Multiple myeloma in relapse (HCC) COMPREHENSIVE METABOLIC PANEL STAT 07/13/2024 7:40 AM CHARTER DRIVER Multiple myeloma in relapse (HCC) CBC WITH AUTO DIFFERENTIAL STAT 07/13/2024 7:40 AM CHARTER DRIVER Multiple myeloma in relapse (HCC) APTT STAT 07/13/2024 7:24 AM CHARTER DRIVER Multiple myeloma in relapse (HCC) PROTIME-INR STAT 07/13/2024 7:24 AM CHARTER DRIVER Multiple myeloma in relapse (HCC) HEPATITIS C ANTIBODY STAT 10/16/2021 9:50 AM CDT Multiple myeloma in relapse (HCC) from Last 3 Months or Most Recently Relevant to Health Maintenance Results * Immunotyping, serum with interpretation (09/28/2024 7:43 AM CDT) Immunosubtraction Please see comment Comment: NO PARAPROTEIN DETECTED Reviewed and signed by Ivan Sims MD, PhD 09/29/2024 Blood 09/28/2024 7:43 AM CDT 09/28/2024 9:50 AM CDT Hermelindo Butler MD LAB BLOOD ORDER ELANA Final Result Performing Organization Address City/[facility] Co de Phone Number [facility] [place] [address] * (ABNORMAL) eGFR (09/28/2024 7:43 AM CDT) eGFR 40(L) >=60 mL/min/1. 73 m2 Comment: Interpretive Data [...] interpretive data was last reviewed 2021. Blood 09/28/2024 7:43 AM CDT 09/28/2024 8:03 AM CDT Hermelindo Butler MD LAB BLOOD ORDER ELANA Final Result Performing Organization Address City/[facility]/ZIP Co de Phone Number MT Aranda [facility] [place] [employer] [place] [address] * (ABNORMAL) eGFR (09/28/2024 7:43 AM CDT) eGFR 40(L) >=60 mL/min/1. 73 m2 Comment: Interpretive Data [...] interpretive data was last reviewed 2021. Blood 09/28/2024 7:43 AM CDT 09/28/2024 8:02 AM CDT Hermelindo Butler MD LAB BLOOD ORDER ELANA Final Result [facility] [place] [address] * (ABNORMAL) Differential, auto (09/28/2024 7:43 AM CDT) Neutrophil abs 5.12 1.50 - 6.50 K/cumm Comment:Testing performed by : [facility], [address] [place], [place] [phone] Lymphocyte abs 0.72(L) 0.80 - 3.30 K/cumm [facility] Comment:Testing performed by : [facility], [address] [place] [address] Monocyte abs 0.50 0.20 - 0.80 K/cumm [facility] Comment:Testing performed by : [facility], [address] [place], [place] [phone] Eosinophil abs 0.15 0.00 - 0.50 K/cumm [facility] Comment:Testing performed by : [facility], [address] [place] [phone] Basophil abs 0.04 0.00 - 0.10 K/cumm CERNER BJ Comment:Testing performed by : [facility], [address] [place] [phone] Neutrophil pct 78.4 % CERNER [facility] Comment: Interpretive Data Percent cell count reference ranges are not reported, since discordance with absolute values may lead to misinterpretation of CBC data. Current Interpretive Data was last revised on 2017. Testing performed by: [facility], [address] [place] [phone] Lymphocyte pct 11.0 % CERNER [facility]J Comment: Interpretive Data Percent cell count reference ranges are not reported, since discordance with absolute values may lead to misinterpretation of CBC data. Current Interpretive Data was last revised on 2017. Testing performed by: [facility], [address] [place] [id number] Monocyte pct 7.7 % CERNER BJ Comment: Interpretive Data Percent cell count reference ranges are not reported, since discordance with absolute values may lead to misinterpretation of CBC data. Current Interpretive Data was last revised on 2017. Testing performed by: [facility], [address] [place] [phone] Eosinophil pct 2.3 % CERNER BJ Comment: Interpretive Data Percent cell count reference ranges are not reported, since discordance with absolute values may lead to misinterpretation of CBC data. Current Interpretive Data was last revised on 2017. Testing performed by: [facility], [address] [place] [phone] Basophil pct 0.7 % CERNER BJ Comment: Interpretive Data Percent cell count reference ranges are not reported, since discordance with absolute values may lead to misinterpretation of CBC data. Current Interpretive Data was last revised on 2017. Testing performed by: [facility], [address] [place] [phone] Blood 09/28/2024 7:43 AM CDT 09/28/2024 8:00 AM CDT Hermelindo Butler MD LAB BLOOD ORDER ELANA Final Result [facility] [place] [address] * (ABNORMAL) Immunoglobulin free light chains (09/28/2024 7:43 AM CDT) Pathologist [facility] [place]/Lambda ratio [facility] See Comment 0.26 - 1.65 Comment: Unable to calculate exact result. Interpretive Data The Binding Site FreeLite assay procedure was used. Results from different manufacturers or methods may not be comparable. Serial testing should be performed using the same methods and instrumentation. Current Interpretive Data was last revised on 2023. [place] free light chain [facility] <0.06(L) 0.33 - 1.94 mg/dL [facility] Comment: Interpretive Data The Binding Site FreeLite assay procedure was used. Results from different manufacturers or methods may not be comparable. Serial testing should be performed using the same methods and instrumentation. Current Interpretive Data was last revised on 2023. Lambda free light chain [facility] <0.14(L) 0.57 - 2.63 mg/dL [facility] Comment: Interpretive Data The Binding Site FreeLite assay procedure was used. Results from different manufacturers or methods may not be comparable. Serial testing should be performed using the same methods and instrumentation. Current Interpretive Data was last revised on 2023. Blood 09/28/2024 7:43 AM CDT 09/28/2024 9:50 AM CDT Hermelindo Butler MD LAB BLOOD ORDER ELANA Final Result [facility] Department [place] [address] * (ABNORMAL) CBC with auto differential (09/28/2024 7:43 AM CDT) Pathologist [facility] WBC 6.53 3.80 - 9.90 K/cumm Comment:Testing performed by : [facility], [address] [place] [address] Hgb 11.5(L) 13.0 - 17.5 g/dL CERNER BJ Comment:Testing performed by : [facility], [address] [place], [place] [phone] Hct 34.4(L) 38.9 - 50.3 % CERNER BJ Comment:Testing performed by : [facility], [address] [place], [place] [phone] Plt 229 150 - 400 K/cumm CERNER BJ Comment:Testing performed by : [facility], [address] [place] [address] MPV 7.0 6.8 - 10.4 fL C[facility]ER BJ Comment:Testing performed by : [facility], [address] [place], [place] [phone] RBC 3.61(L) 4.30 - 5.80 M/cumm CERNER BJ Comment:Testing performed by : [facility], [address] [place] [address] MCV 95.2 81.3 - 96.4 fL [facility]J Comment:Testing performed by : [facility], [address] [place] [address] MCH 31.7 27.1 - 33.3 pg C[facility]ER [facility]J Comment:Testing performed by : [facility], [address] [place] [address] MCHC 33.3 32.3 - 35.7 g/dL [facility] Comment:Testing performed by : [facility], [address] [place] [address] RDW CV 15.6(H) 11.1 - 14.9 % C[facility]ER [facility]J Comment:Testing performed by : [facility], [address] [place] [address] NRBC abs 0.00 0.00 - 0.01 K/cumm CERNER BJ Comment:Testing performed by : [facility], [address] [place] [address] Blood 09/28/2024 7:43 AM CDT 09/28/2024 8:00 AM CDT Hermelindo Butler MD LAB BLOOD ORDER ELANA Final Result Performing Organization Address [facility] de Phone Number [facility] [place] [address] * aPTT (09/28/2024 7:43 AM CDT) aPTT 33 28 - 38 sec Comment: Interpretive Data Heparin therapeutic range: 66.0 - 100.0 seconds. Range based on correlation with therapeutic heparin activity range of 0.3 - 0.7 Units/mL. Current interpretive data was last revised on 2023. Blood 09/28/2024 7:43 AM CDT 09/28/2024 8:16 AM CDT Hermelindo Butler MD LAB BLOOD ORDER ELANA Final Result Performing Organization Address [facility] de Phone Number [facility] [place] [address] * Protime-INR (09/28/2024 7:43 AM CDT) PT 11.9 9.7 - 13.0 sec INR 1.10 0.90 - 1.20 [facility] Comment: Interpretive data Oral anticoagulant therapeutic ranges: Venous thromboembolism prophylaxis or treatment: 2.0-3.0 CARDIOLOGY Standard range: 2.0-3.0 High-intensity range: 2.5-3.5 Refer to indication-specific guidelines for appropriate target ranges for prosthetic heart valve replacement. Current interpretive data was last revised on 2019. Blood 09/28/2024 7:43 AM CDT 09/28/2024 8:16 AM CDT Hermelindo Butler MD LAB BLOOD ORDER ELANA Final Result Performing Organization Address City/[facility]/ZIP Co de Phone Number [facility] Department [place] [address] * (ABNORMAL) Protein electrophoresis with reflex, serum with interpretation (09/28/2024 7:43 AM CDT) Pathologist [facility] Protein, sr 5.6(L) 6.2 - 8.2 g/dL Albumin 3.7 3.2 - 5.0 g/dL [facility] Alpha-1 globulin 0.4 0.2 - 0.4 g/dL [facility] Alpha-2 globulin 0.8 0.5 - 1.0 g/dL [facility] Beta-1 globulin 0.4 0.3 - 0.6 g/dL [facility] Beta-2 globulin 0.2 0.2 - 0.6 g/dL [facility] Gamma globulin 0.1(L) 0.5 - 1.7 g/dL [facility] SPEP interp Please see comment [facility] Comment: No apparent monoclonal peak Decreased gamma globulins Electrophoretic pattern appears similar to previous sample 09-01-24 See immunotyping for further information Reviewed and signed by Ivan Sims MD, PhD 09/29/2024 Blood 09/28/2024 7:43 AM CDT 09/28/2024 9:50 AM CDT Hermelindo Butler MD LAB BLOOD ORDER ELANA Final Result Performing Organization Address [facility] Co de Phone Number [facility] [place] [address] * Magnesium (09/28/2024 7:43 AM CDT) [facility] Magnesium 2.2 1.4 - 2.5 mg/dL Blood 09/28/2024 7:43 AM CDT 09/28/2024 8:03 AM CDT Hermelindo Butler MD LAB BLOOD ORDER ELANA Final Result Performing Organization Address City/[facility]/ZIP Co de Phone Number [facility] [place] [address] * Lactate dehydrogenase (LD) (09/28/2024 7:43 AM CDT) Pathologist [facility] Lactate dehydrogenase (LDH) 132 100 - 250 Units/L Blood 09/28/2024 7:43 AM CDT 09/28/2024 8:03 AM CDT Hermelindo Butler MD LAB BLOOD ORDER ELANA Final Result Performing Organization Address City/[facility] [place] [address] * Gamma GT (09/28/2024 7:43 AM CDT) Pathologist [facility] GGT 28 10 - 50 Units/L Blood 09/28/2024 7:43 AM CDT 09/28/2024 8:03 AM CDT Hermelindo Butler MD LAB BLOOD ORDER ELANA Final Result Performing Organization Address [facility] Co de Phone Number [facility] Department [place] [address] * (ABNORMAL) IgA (09/28/2024 7:43 AM CDT) Pathologist [facility] Immunoglobulin A <50(L) 70 - 400 mg/dL Blood 09/28/2024 7:43 AM CDT 09/28/2024 8:24 AM CDT Hermelindo Butler MD LAB BLOOD ORDER ELANA Final Result Performing Organization Address City/[facility]/ZIP Co de Phone Number [facility] [place] [address] * (ABNORMAL) IgM (09/28/2024 7:43 AM CDT) Pathologist [facility] Immunoglobulin M <25(L) 40 - 230 mg/dL Blood 09/28/2024 7:43 AM CDT 09/28/2024 8:24 AM CDT Hermelindo Butler MD LAB BLOOD ORDER ELANA Final Result Performing Organization Address City/[facility] Co de Phone Number [facility] Department [place] [address] * (ABNORMAL) IgG (09/28/2024 7:43 AM CDT) Pathologist [facility] Immunoglobulin G <300(L) 700 - 1,600 mg/dL Blood 09/28/2024 7:43 AM CDT 09/28/2024 8:24 AM CDT Hermelindo Butler MD LAB BLOOD ORDER ELANA Final Result Performing Organization Address [facility] de Phone Number [facility] [place] [address] * (ABNORMAL) Comprehensive metabolic panel (09/28/2024 7:43 AM CDT) [facility] Sodium 143 135 - 145 mmol/L Potassium, pl 4.1 3.3 - 4.9 mmol/L [facility] Chloride 106 97 - 110 mmol/L [facility] CO2 27 22 - 32 mmol/L [facility] Anion gap 10 2 - 15 mmol/L [facility] BUN 30(H) 6 - 25 mg/dL [facility] Creatinine 1.80(H) 0.80 - 1.30 mg/dL [facility] Glucose 106 70 - 199 mg/dL [facility] Comment: Interpretive Data Fasting glucose [...] interpretive data was last revised 2022. Calcium 9.6 8.5 - 10.3 mg/dL [facility] Bilirubin, total 0.5 0.1 - 1.2 mg/dL [facility] Protein, pl 6.2(L) 6.5 - 8.5 g/dL [facility] Albumin 3.9 3.5 - 5.0 g/dL [facility] Alk phos 62 40 - 130 Units/L [facility] ALT 12 7 - 55 Units/L [facility] AST 13 10 - 50 Units/L [facility] Blood 09/28/2024 7:43 AM CDT 09/28/2024 8:02 AM CDT Hermelindo Butler MD LAB BLOOD ORDER ELANA Final Result [facility] Department [place] [address] * (ABNORMAL) Comprehensive metabolic panel (09/28/2024 7:43 AM CDT) Sodium 143 135 - 145 mmol/L Potassium, pl 4.1 3.3 - 4.9 mmol/L [facility] Chloride 106 97 - 110 mmol/L [facility] CO2 27 22 - 32 mmol/L [facility] Anion gap 10 2 - 15 mmol/L [facility] BUN 31(H) 6 - 25 mg/dL [facility] Creatinine 1.80(H) 0.80 - 1.30 mg/dL [facility] Glucose 105 70 - 199 mg/dL [facility] Comment: Interpretive Data Fasting glucose [...] interpretive data was last revised 2022. Calcium 9.6 8.5 - 10.3 mg/dL [facility] Bilirubin, total 0.5 0.1 - 1.2 mg/dL [facility] Protein, pl 6.1(L) 6.5 - 8.5 g/dL [facility] Albumin 4.0 3.5 - 5.0 g/dL [facility] Alk phos 61 40 - 130 Units/L [facility] ALT 13 7 - 55 Units/L [facility] AST 13 10 - 50 Units/L [facility] Blood 09/28/2024 7:43 AM CDT 09/28/2024 8:03 AM CDT Hermelindo Butler MD LAB BLOOD ORDER ELANA Final Result [facility] [place] [address] * CO INSJ NON-TUNNELED CENTRAL VENOUS CATH AGE 5 YR/> (09/15/2024 1:20 PM CDT) Narrative Lianna Denny PA - 09/15/2024 1:20 PM CDT Lianna Denny PA 09/15/2024 1:40 PM Midline Insertion Date/Time: 09/15/2024 1:20 PM Performed by: Lianna Denny PA Authorized by: Lianna Denny PA [place] Protocol: RN Notified of Procedure: yes Informed [...] BLOOD ORDERABLES Final Result Performing Organization Address [facility] Co de Phone Number [facility] [address] [place] [address] * (ABNORMAL) CBC without differential (09/15/2024 3:52 AM CDT) WBC 6.46 3.80 - 9.90 K/cumm Hgb 10.1(L) 13.0 - 17.5 g/dL [facility] Hct 31.4(L) 38.9 - 50.3 % [facility] Plt 149(L) 150 - 400 K/cumm [facility] MPV 9.2 9.1 - 12.3 fL [facility] RBC 3.20(L) 4.30 - 5.80 M/cumm [facility] MCV 98.1(H) 81.3 - 96.4 fL [facility] MCH 31.6 27.1 - 33.3 pg [facility] MCHC 32.2(L) 32.3 - 35.7 g/dL [facility] RDW CV 14.9 11.1 - 14.9 % [facility] RDW SD 54.3(H) 35.7 - 48.1 fL [facility] NRBC abs 0.00 0.00 - 0.01 K/cumm [facility] Blood 09/15/2024 3:52 AM CDT 09/15/2024 4:02 AM CDT us Emory Santana MD LAB BLOOD ORDERABLES Final Result Performing Organization Address [facility]/ZIP Co de Phone Number [facility] [address] [facility] [place] [address] * (ABNORMAL) Basic metabolic panel (09/15/2024 3:52 AM CDT) [facility] Sodium 143 135 - 145 mmol/L Potassium, pl 3.2(L) 3.3 - 4.9 mmol/L [facility] Chloride 105 97 - 110 mmol/L [facility] CO2 28 22 - 32 mmol/L [facility] Anion gap 10 2 - 15 mmol/L [facility] BUN 12 6 - 25 mg/dL [facility] Creatinine 1.45(H) 0.80 - 1.30 mg/dL [facility] Glucose 110 70 - 199 mg/dL [facility] Comment: Interpretive Data Fasting glucose >/= [...] 2022. Calcium 8.2(L) 8.5 - 10.3 mg/dL [facility] Blood 09/15/2024 3:52 AM CDT 09/15/2024 4:02 AM CDT us Emory Santana MD LAB BLOOD ORDERABLES Final Result [facility] [address] Department [place] [address] * (ABNORMAL) eGFR (09/14/2024 2:25 AM CDT) [facility] eGFR 48(L) >=60 mL/min/1. 73 m2 Comment: [...] Santana MD LAB BLOOD ORDERABLES Final Result [facility] [address] Department [place] [address] * (ABNORMAL) CBC without differential (09/14/2024 2:25 AM CDT) WBC 5.62 3.80 - 9.90 K/cumm Hgb 10.0(L) 13.0 - 17.5 g/dL [facility] Hct 31.1(L) 38.9 - 50.3 % [facility] Plt 163 150 - 400 K/cumm [facility] MPV 9.3 9.1 - 12.3 fL [facility] RBC 3.15(L) 4.30 - 5.80 M/cumm [facility] MCV 98.7(H) 81.3 - 96.4 fL [facility] MCH 31.7 27.1 - 33.3 pg [facility] MCHC 32.2(L) 32.3 - 35.7 g/dL [facility] RDW CV 15.4(H) 11.1 - 14.9 % [facility] RDW SD 55.6(H) 35.7 - 48.1 fL [facility] NRBC abs 0.00 0.00 - 0.01 K/cumm [facility] Blood 09/14/2024 2:25 AM CDT 09/14/2024 2:44 AM CDT us Emory Santana MD LAB BLOOD ORDERABLES Final Result Performing Organization Address City/[facility]/ZIP Co de Phone Number [facility] [address] [place] [address] * (ABNORMAL) Basic metabolic panel (09/14/2024 2:25 AM CDT) Sodium 146(H) 135 - 145 mmol/L Potassium, pl 3.3 3.3 - 4.9 mmol/L [facility] Chloride 108 97 - 110 mmol/L [facility] CO2 27 22 - 32 mmol/L [facility] Anion gap 11 2 - 15 mmol/L [facility] BUN 18 6 - 25 mg/dL [facility] Creatinine 1.53(H) 0.80 - 1.30 mg/dL [facility] Glucose 116 70 - 199 mg/dL [facility] Comment: Interpretive Data Fasting glucose >/= [...] 2022. Calcium 8.1(L) 8.5 - 10.3 mg/dL [facility] Blood 09/14/2024 2:25 AM CDT 09/14/2024 2:44 AM CDT us Emory Santana MD LAB BLOOD ORDERABLES Final Result Performing Organization Address [facility]/ZIP Co de Phone Number [facility] [address] [place] [address] * (ABNORMAL) eGFR (09/13/2024 3:21 AM CDT) Pathologist [facility] eGFR 48(L) >=60 mL/min/1. 73 m2 Comment: [...] Santana MD LAB BLOOD ORDERABLES Final Result [facility] [address] [place] [address] * (ABNORMAL) CBC without differential (09/13/2024 3:21 AM CDT) [facility] WBC 5.46 3.80 - 9.90 K/cumm Hgb 10.1(L) 13.0 - 17.5 g/dL [facility] Hct 30.8(L) 38.9 - 50.3 % [facility] Plt 160 150 - 400 K/cumm [facility] MPV 9.7 9.1 - 12.3 fL [facility] RBC 3.15(L) 4.30 - 5.80 M/cumm [facility] MCV 97.8(H) 81.3 - 96.4 fL [facility] MCH 32.1 27.1 - 33.3 pg [facility] MCHC 32.8 32.3 - 35.7 g/dL [facility] RDW CV 15.7(H) 11.1 - 14.9 % [facility] RDW SD 56.4(H) 35.7 - 48.1 fL [facility] NRBC abs 0.00 0.00 - 0.01 K/cumm [facility] Blood 09/13/2024 3:21 AM CDT 09/13/2024 3:48 AM CDT us Emory Santana MD LAB BLOOD ORDERABLES Final Result [facility] [address] [place] [address] * (ABNORMAL) Basic metabolic panel (09/13/2024 3:21 AM CDT) Sodium 141 135 - 145 mmol/L Potassium, pl 3.3 3.3 - 4.9 mmol/L [facility] Chloride 105 97 - 110 mmol/L [facility] CO2 24 22 - 32 mmol/L [facility] Anion gap 12 2 - 15 mmol/L [facility] BUN 24 6 - 25 mg/dL [facility] Creatinine 1.55(H) 0.80 - 1.30 mg/dL [facility] Glucose 115 70 - 199 mg/dL [facility] Comment: Interpretive Data Fasting glucose >/= [...] 2022. Calcium 8.1(L) 8.5 - 10.3 mg/dL [facility] Blood 09/13/2024 3:21 AM CDT 09/13/2024 3:48 AM CDT us Emory Santana MD LAB BLOOD ORDERABLES Final Result [facility] [address] [place] [address] * TRANSTHORACIC ECHO (TTE) COMPLETE W DOPPLER/CF WO CONTRAST (09/12/2024 2:39 PM CDT) LV EF 55-60 % CONS SCIMAGE Anatomical Region Laterality Modality Ultrasound 09/12/2024 12:1 1 PM CDT Narrative 09/12/2024 2:42 PM CDT [facility] [address] [address] ECHOCARDIOGRAM Patient Name: BUFFY VALLECarl : 1950 (73y 9m) Gender: M Study Date: 09/12/2024 12:11:05 PM Ht(Inch): 69 Wt(Lb): 275.57 BSA: 2.47 Scrap Baller: JIM Location: [id number] Order Provider: ANUP SIN BMI: 40.69 BP: [...] Procedure Note Choco Thomas MD - 09/12/2024 [place] [address] [place] [address] ECHOCARDIOGRAM Patient Name: BUFFY VALLE Carl : 1950 (73y 9m) Gender: M Study Date: 09/12/2024 12:11:05 PM Ht(Inch): 69 Wt(Lb): 275.57 BSA: 2.47 Scrap Baller: JIM Location: [id number] Order Provider: ANUP SIN BMI: 40.69 BP: [...] [ 0.10 - 0.15 ] Sept E' Emrias 0.05 m/s [ 0.08 - 0.15 ] [...] 3:14 AM CDT 09/12/2024 3:34 AM CDT Emory Santana MD LAB BLOOD ORDERABLES Final Result Performing Organization Address City/[facility] Co de Phone Number [facility] [address] [place] [address] * (ABNORMAL) CBC without differential (09/12/2024 3:14 AM CDT) WBC 7.12 3.80 - 9.90 K/cumm Hgb 10.3(L) 13.0 - 17.5 g/dL [facility] Hct 31.8(L) 38.9 - 50.3 % [facility] Plt 150 150 - 400 K/cumm [facility] MPV 9.5 9.1 - 12.3 fL [facility] RBC 3.23(L) 4.30 - 5.80 M/cumm [facility] MCV 98.5(H) 81.3 - 96.4 fL [facility] MCH 31.9 27.1 - 33.3 pg [facility] MCHC 32.4 32.3 - 35.7 g/dL [facility] RDW CV 15.9(H) 11.1 - 14.9 % [facility] RDW SD 57.1(H) 35.7 - 48.1 fL [facility] NRBC abs 0.00 0.00 - 0.01 K/cumm [facility] Blood 09/12/2024 3:14 AM CDT 09/12/2024 3:35 AM CDT Emory Santana MD LAB BLOOD ORDERABLES Final Result Performing Organization Address City/[facility]/ZIP Co de Phone Number [facility] [address] [place] [address] * (ABNORMAL) Basic metabolic panel (09/12/2024 3:14 AM CDT) Pathologist [facility] Sodium 139 135 - 145 mmol/L Potassium, pl 3.3 3.3 - 4.9 mmol/L [facility] Chloride 101 97 - 110 mmol/L [facility] CO2 23 22 - 32 mmol/L [facility] Anion gap 15 2 - 15 mmol/L [facility] BUN 31(H) 6 - 25 mg/dL [facility] Creatinine 1.96(H) 0.80 - 1.30 mg/dL [facility] Glucose 114 70 - 199 mg/dL [facility] Comment: Interpretive Data Fasting glucose >/= [...] 2022. Calcium 8.4(L) 8.5 - 10.3 mg/dL [facility] Blood 09/12/2024 3:14 AM CDT 09/12/2024 3:34 AM CDT us Emory Santana MD LAB BLOOD ORDERABLES Final Result Performing Organization Address City/[facility]/ZIP Co de Phone Number [facility] [address] Department [place] [address] * (ABNORMAL) eGFR (09/11/2024 4:59 AM CDT) [facility] eGFR 27(L) >=60 mL/min/1. 73 m2 Comment: [...] 4:59 AM CDT 09/11/2024 5:07 AM CDT Emory Santana MD LAB BLOOD ORDERABLES Final Result [facility] [address] [place] [address] * Blood culture Blood (09/11/2024 4:59 AM CDT) Report Final Report: No growth Blood 09/11/2024 4:59 AM CDT 09/11/2024 5:09 AM CDT Narrative [facility] - 09/16/2024 7:01 AM CDT From a [...] organism identification may be performed using the TEEspy Blood Culture Identification panel. This assay detects microbial DNA in a blood culture broth. This assay has been cleared by the [place] Food and Drug Administration and its performance characteristics have been verified by the [facility]. Interpretive data was last revised on July 11, 2022. us Emory Santana MD LAB MICROBIOLOGY - GENERAL ORDERABLES Final Result Performing Organization Address [facility] de Phone Number [facility] [address] [place] [address] * Blood culture Blood (09/11/2024 4:59 AM CDT) Report Final Report: No growth Blood 09/11/2024 4:59 AM CDT 09/11/2024 5:09 AM CDT Narrative [facility] - 09/16/2024 7:01 AM CDT Collection->Peripheral Interpretive [...] organism identification may be performed using the SETVIArray Blood Culture Identification panel. This assay detects microbial DNA in a blood culture broth. This assay has been cleared by the [place] Food and Drug Administration and its performance characteristics have been verified by the [facility]. Interpretive data was last revised on July 11, 2022. us Emory Santana MD LAB MICROBIOLOGY - GENERAL ORDERABLES Final Result Performing Organization Address [facility] de Phone Number [facility] [address] [place] [address] * (ABNORMAL) CBC without differential (09/11/2024 4:59 AM CDT) WBC 11.33(H) 3.80 - 9.90 K/cumm Hgb 10.8(L) 13.0 - 17.5 g/dL [facility] Hct 33.2(L) 38.9 - 50.3 % [facility] Plt 138(L) 150 - 400 K/cumm [facility] MPV 9.5 9.1 - 12.3 fL [facility] RBC 3.37(L) 4.30 - 5.80 M/cumm [facility] MCV 98.5(H) 81.3 - 96.4 fL [facility] MCH 32.0 27.1 - 33.3 pg [facility] MCHC 32.5 32.3 - 35.7 g/dL [facility] RDW CV 15.9(H) 11.1 - 14.9 % [facility] RDW SD 57.7(H) 35.7 - 48.1 fL [facility] NRBC abs 0.00 0.00 - 0.01 K/cumm [facility] Blood 09/11/2024 4:59 AM CDT 09/11/2024 5:08 AM CDT us Emory Santana MD LAB BLOOD ORDERABLES Final Result [facility] [address] [place] [address] * (ABNORMAL) Basic metabolic panel (09/11/2024 4:59 AM CDT) Sodium 139 135 - 145 mmol/L Potassium, pl 3.7 3.3 - 4.9 mmol/L [facility] Chloride 102 97 - 110 mmol/L [facility] CO2 23 22 - 32 mmol/L [facility] Anion gap 14 2 - 15 mmol/L [facility] BUN 39(H) 6 - 25 mg/dL [facility] Creatinine 2.45(H) 0.80 - 1.30 mg/dL [facility] Glucose 131 70 - 199 mg/dL [facility] Comment: Interpretive Data Fasting glucose >/= [...] 2022. Calcium 8.8 8.5 - 10.3 mg/dL [facility] Blood 09/11/2024 4:59 AM CDT 09/11/2024 5:07 AM CDT Emory Santana MD LAB BLOOD ORDERABLES Final Result [facility] [address] [place] [address] * (ABNORMAL) Urinalysis reflex to microscopic and culture Urine, indwelling catheter (09/11/2024 4:07AM CDT) Color, ur Yellow Yellow Clarity, ur Clear Clear [facility] Specific gravity, ur 1.013 1.003 - 1.030 [facility] pH, urine 5.5 [facility] Comment: Interpretive Data U rine pH is affected by diet, medications, systemic acid-base disturbances, and renal tubular function. pH may affect urinary stone formation. For example, urine pH below 6.0 may help reduce the tendency for calcium phosphate stones and pH greater than 6.0 may reduce the tendency for uric acid stone formation. Source: [facility] Current Interpretive Data was last revised on 2017 Protein, ur ql Trace Negative [facility] Glucose, ur ql Negative Negative [facility] Ketones, ur Negative Negative [facility] Bilirubin, ur Negative Negative [facility] Blood, ur 1+(A) Negative [facility] Urobilinogen, ur <2.0 <2.0 mg/dL [facility] Nitrite, ur Negative Negative [facility] Leukocyte esterase, ur 2+(A) Negative [facility] UA reflex comment Reflex to microscopic UA will be performed. [facility] Urine, indwelling catheter 09/11/2024 4:07 AM CDT 09/11/2024 4:07 AM CDT Emory Santana MD LAB MICROBIOLOGY - GENERAL ORDERABLES Final Result Performing Organization Address [facility] Co de Phone Number [facility] [address] Department [place], [place] [id number] * (ABNORMAL) Urinalysis, microscopic only (09/11/2024 4:07 AM CDT) WBC, ur 11-20(A) 0 - 5 /HPF RBC, ur 3-5(A) 0 - 2 /HPF [facility] Culture Reflex Comment Reflex to urine culture will be performed. [facility] Urine, indwelling catheter 09/11/2024 4:07 AM CDT 09/11/2024 4:14 AM CDT us Emory Santana MD LAB URINE ORDERABLES Final Result Performing Organization Address [facility] de Phone Number [facility] [address] [place] [address] * (ABNORMAL) Urine culture Urine, indwelling catheter (09/11/2024 4:07 AM CDT) Report Final Report: Less than 10,000 colonies/ml of Gram Positive Organism No further workup. (.) Organism GRAM POSITIVE ORGANISM [facility] Urine, indwelling catheter 09/11/2024 4:07 AM CDT 09/11/2024 6:47 AM CDT Narrative [facility] - 09/13/2024 7:16 AM CDT Urine culture reflexed based upon urinalysis results. us Emory Santana MD LAB MICROBIOLOGY - GENERAL ORDERABLES Final Result Performing Organization Address [facility] Co de Phone Number [facility] [address] [place], [place] [id number] * (ABNORMAL) eGFR (09/11/2024 2:32 AM CDT) [...] Santana MD LAB BLOOD ORDERABLES Final Result [facility] [address] Department of Laboratories [place], [place] [id number] * (ABNORMAL) Differential, auto (09/11/2024 2:32 AM CDT) Neutrophil abs 12.22(H) 1.50 - 6.50 K/cumm Imm gran abs 0.10 0.00 - 0.10 K/cumm [facility] Lymphocyte abs 0.79(L) 0.80 - 3.30 K/cumm [facility] Monocyte abs 1.12(H) 0.20 - 0.80 K/cumm [facility] Eosinophil abs 0.00 0.00 - 0.50 K/cumm [facility] Basophil abs 0.03 0.00 - 0.10 K/cumm [facility] Neutrophil pct 85.7 % [facility] Comment: Interpretive Data Percent cell count reference ranges are not reported, since discordance with absolute values may lead to misinterpretation of CBC data. Current Interpretive Data was last revised on 2017. Imm gran pct 0.7 % [facility] Comment: Interpretive Data Percent cell count reference ranges are not reported, since discordance with absolute values may lead to misinterpretation of CBC data. Current Interpretive Data was last revised on 2017. Lymphocyte pct 5.5 % [facility] Comment: Interpretive Data Percent cell count reference ranges are not reported, since discordance with absolute values may lead to misinterpretation of CBC data. Current Interpretive Data was last revised on 2017. Monocyte pct 7.9 % [facility] Comment: Interpretive Data Percent cell count reference ranges are not reported, since discordance with absolute values may lead to misinterpretation of CBC data. Current Interpretive Data was last revised on 2017. Eosinophil pct 0.0 % [facility] Comment: Interpretive Data Percent cell count reference ranges are not reported, since discordance with absolute values may lead to misinterpretation of CBC data. Current Interpretive Data was last revised on 2017. Basophil pct 0.2 % [facility] Comment: Interpretive Data Percent cell count reference ranges are not reported, since discordance with absolute values may lead to misinterpretation of CBC data. Current Interpretive Data was last revised on 2017. Blood 09/11/2024 2:32 AM CDT 09/11/2024 2:46 AM CDT us Emory Santana MD LAB BLOOD ORDERABLES Final Result [facility] [address] Department of Laboratories [place], [place] [id number] * (ABNORMAL) CBC with auto differential (09/11/2024 2:32 AM CDT) WBC 14.26(H) 3.80 - 9.90 K/cumm Hgb 11.6(L) 13.0 - 17.5 g/dL [facility] Hct 34.8(L) 38.9 - 50.3 % [facility] Plt 171 150 - 400 K/cumm [facility] MPV 9.8 9.1 - 12.3 fL [facility] RBC 3.59(L) 4.30 - 5.80 M/cumm [facility] MCV 96.9(H) 81.3 - 96.4 fL [facility] MCH 32.3 27.1 - 33.3 pg [facility] MCHC 33.3 32.3 - 35.7 g/dL [facility] RDW CV 16.1(H) 11.1 - 14.9 % [facility] RDW SD 57.1(H) 35.7 - 48.1 fL [facility] NRBC abs 0.00 0.00 - 0.01 K/cumm [facility] Blood 09/11/2024 2:32 AM CDT 09/11/2024 2:46 AM CDT Emory Santana MD LAB BLOOD ORDERABLES Final Result Performing Organization Address [facility] Co de Phone Number [facility] [address] [place] [address] * aPTT (09/11/2024 2:32 AM CDT) aPTT 32 28 - 38 sec Comment: Interpretive Data Heparin therapeutic range: 66.0 - 100.0 seconds. Range based on correlation with therapeutic heparin activity range of 0.3 - 0.7 Units/mL. Current interpretive data was last revised on 2023. Blood 09/11/2024 2:32 AM CDT 09/11/2024 2:46 AM CDT Emory Santana MD LAB BLOOD ORDERABLES Final Result Performing Organization Address City/[facility]/ZIP Co de Phone Number [facility] [address] [facility] [employer] [place], [place] [phone] * (ABNORMAL) Protime-INR (09/11/2024 2:32 AM CDT) PT 16.4(H) 9.7 - 13.0 sec INR 1.51(H) 0.90 - 1.20 [facility] Comment: Interpretive data Oral anticoagulant therapeutic ranges: Venous thromboembolism prophylaxis or treatment: 2.0-3.0 CARDIOLOGY Standard range: 2.0-3.0 High-intensity range: 2.5-3.5 Refer to indication-specific guidelines for appropriate target ranges for prosthetic heart valve replacement. Current interpretive data was last revised on 2019. Blood 09/11/2024 2:32 AM CDT 09/11/2024 2:46 AM CDT us Emory Santana MD LAB BLOOD ORDERABLES Final Result Performing Organization Address [facility] Co de Phone Number [facility] [address] [facility] [employer] [place], [place] [phone] * Vancomycin level random (09/11/2024 2:32 AM CDT) Pathologist [facility] Vancomycin random <4.0 mcg/mL Comment: Interpretive Data No reference ranges have been established for random drug levels. Current Interpretive Data was last revised on 2020. Blood 09/11/2024 2:32 AM CDT 09/11/2024 2:46 AM CDT us Emory Santana MD LAB BLOOD ORDERABLES Final Result Performing Organization Address [facility] Co de Phone Number [facility] [address] [facility] [place] [address] * (ABNORMAL) Comprehensive metabolic panel (09/11/2024 2:32 AM CDT) Sodium 140 135 - 145 mmol/L Potassium, pl 3.7 3.3 - 4.9 mmol/L [facility] Chloride 103 97 - 110 mmol/L [facility] CO2 22 22 - 32 mmol/L [facility] Anion gap 15 2 - 15 mmol/L [facility] BUN 35(H) 6 - 25 mg/dL [facility] Creatinine 2.36(H) 0.80 - 1.30 mg/dL [facility] Glucose 128 70 - 199 mg/dL [facility] Comment: Interpretive Data Fasting glucose >/= [...] 2022. Calcium 8.7 8.5 - 10.3 mg/dL [facility] Bilirubin, total 1.0 0.1 - 1.2 mg/dL [facility] Protein, pl 6.2(L) 6.5 - 8.5 g/dL [facility] Albumin 3.8 3.5 - 5.0 g/dL [facility] Alk phos 63 40 - 130 Units/L [facility] ALT 13 7 - 55 Units/L [facility] AST 15 10 - 50 Units/L [facility] Blood 09/11/2024 2:32 AM CDT 09/11/2024 2:46 AM CDT us Emory Santana MD LAB BLOOD ORDERABLES Final Result [facility] [address] [place] [address] * Differential, auto (08/31/2024 8:12 AM CDT) Neutrophil abs 6.0 1.5 - 6.5 K/cumm Comment:Testing performed by : [facility], [address] [place] [phone] Lymphocyte abs 1.0 0.8 - 3.3 K/cumm [facility] Comment:Testing performed by : [facility], [address] [place] [phone] Monocyte abs 0.6 0.2 - 0.8 K/cumm [facility] Comment:Testing performed by : [facility], [address] [place] [phone] Eosinophil abs 0.3 0.0 - 0.5 K/cumm [facility] Comment:Testing performed by : [facility], [address] [place] [phone] Basophil abs 0.1 0.0 - 0.1 K/cumm [facility] Comment:Testing performed by : [facility], [address] [place] [phone] Neutrophil pct 75.2 % [facility] Comment: Interpretive Data Percent cell count reference ranges are not reported, since discordance with absolute values may lead to misinterpretation of CBC data. Current Interpretive Data was last revised on 2017. Testing performed by: [facility], [address] [place] [phone] Lymphocyte pct 12.4 % [facility] Comment: Interpretive Data Percent cell count reference ranges are not reported, since discordance with absolute values may lead to misinterpretation of CBC data. Current Interpretive Data was last revised on 2017. Testing performed by: [facility], [address] [place] [phone] Monocyte pct 7.9 % [facility] Comment: Interpretive Data Percent cell count reference ranges are not reported, since discordance with absolute values may lead to misinterpretation of CBC data. Current Interpretive Data was last revised on 2017. Testing performed by: [facility], [address] [place] [phone] Eosinophil pct 3.9 % [facility] Comment: Interpretive Data Percent cell count reference ranges are not reported, since discordance with absolute values may lead to misinterpretation of CBC data. Current Interpretive Data was last revised on 2017. Testing performed by: [facility], [address] [place] [phone] Basophil pct 0.6 % [facility] Comment: Interpretive Data Percent cell count reference ranges are not reported, since discordance with absolute values may lead to misinterpretation of CBC data. Current Interpretive Data was last revised on 2017. Testing performed by: [facility], [address] [place] [address] Blood 08/31/2024 8:12 AM CDT 08/31/2024 8:16 AM CDT us Hermelindo Butler MD LAB BLOOD ORDER ELANA Final Result [facility] [place] [address] * (ABNORMAL) CBC with auto differential (08/31/2024 8:12 AM CDT) WBC 8.0 3.8 - 9.9 K/cumm Comment:Testing performed by : [facility], [address] [place] [address] Hgb 12.7(L) 13.0 - 17.5 g/dL [facility] Comment:Testing performed by : [facility], [address] [place] [address] Hct 37.8(L) 38.9 - 50.3 % [facility] Comment:Testing performed by : [facility], [address] [place] [address] Plt 176 150 - 400 K/cumm [facility] Comment:Testing performed by : [facility], [address] [place] [address] MPV 7.7 6.8 - 10.4 fL [facility] Comment:Testing performed by : [facility], [address] [place] [address] RBC 4.07(L) 4.30 - 5.80 M/cumm [facility] Comment:Testing performed by : [facility], [address] [place] [address] MCV 92.8 81.3 - 96.4 fL [facility] Comment:Testing performed by : [facility], [address] [place] [address] MCH 31.2 27.1 - 33.3 pg [facility] Comment:Testing performed by : [facility], [address] [place] [phone] MCHC 33.6 32.3 - 35.7 g/dL [facility] Comment:Testing performed by : [facility], [address] [place], [place] [phone] RDW CV 16.1(H) 11.1 - 14.9 % [facility] Comment:Testing performed by : [facility], [address] [place] [phone] NRBC abs 0.00 0.00 - 0.01 K/cumm [facility] Comment:Testing performed by : [facility], [address] [place] [phone] Blood 08/31/2024 8:12 AM CDT 08/31/2024 8:16 AM CDT Hermelindo Butler MD LAB BLOOD ORDER ELANA Final Result Performing Organization Address [facility] Co de Phone Number [facility] [place] [address] * Type and screen (08/31/2024 8:12 AM CDT) ABO Rh A Positive Yehuda, indirect Negative [facility] Comment:Patient has previous antibody history Blood 08/31/2024 8:12 AM CDT 08/31/2024 8:25 AM CDT Narrative [facility] - 08/31/2024 9:28 AM CDT Has the patient had Daratumumab or Isatuximab in the past 6 months?->Unknown Hermelindo Butler MD LAB BLOOD BANK TEST ORDERABLES Final Result Performing Organization Address City/[facility]/ZIP Co de Phone Number [facility] [place] [address] * Immunotyping, serum with interpretation (08/31/2024 8:12 AM CDT) Immunosubtraction Please see comment Comment: NO PARAPROTEIN DETECTED Reviewed and signed by Ivan Sims MD, PhD 09/01/2024 Blood 08/31/2024 8:12 AM CDT 08/31/2024 9:34 AM CDT Hermelindo Butler MD LAB BLOOD ORDER ELANA Final Result [facility] [place] [address] * (ABNORMAL) eGFR (08/31/2024 8:12 AM CDT) [...] LAB BLOOD ORDER ELANA Final Result [facility] [place] [address] * (ABNORMAL) Immunoglobulin free light chains (08/31/2024 8:12 AM CDT) Pathologist [facility]/Lambda ratio [facility] See Comment 0.26 - 1.65 Comment: Unable to calculate exact result. Interpretive Data The Binding Site FreeLite assay procedure was used. Results from different manufacturers or methods may not be comparable. Serial testing should be performed using the same methods and instrumentation. Current Interpretive Data was last revised on 2023. [place] free light chain [facility] <0.06(L) 0.33 - 1.94 mg/dL [facility] Comment: Interpretive Data The Binding Site FreeLite assay procedure was used. Results from different manufacturers or methods may not be comparable. Serial testing should be performed using the same methods and instrumentation. Current Interpretive Data was last revised on 2023. Lambda free light chain [facility] <0.14(L) 0.57 - 2.63 mg/dL [facility] Comment: Interpretive Data The Binding Site FreeLite assay procedure was used. Results from different manufacturers or methods may not be comparable. Serial testing should be performed using the same methods and instrumentation. Current Interpretive Data was last revised on 2023. Blood 08/31/2024 8:12 AM CDT 08/31/2024 9:34 AM CDT Hermelindo Butler MD LAB BLOOD ORDER ELANA Final Result [facility] [place] [address] * (ABNORMAL) aPTT (08/31/2024 8:12 AM CDT) Pathologist [facility] aPTT 50(H) 28 - 38 sec Comment: Interpretive Data Heparin therapeutic range: 66.0 - 100.0 seconds. Range based on correlation with therapeutic heparin activity range of 0.3 - 0.7 Units/mL. Current interpretive data was last revised on 2023. Blood 08/31/2024 8:12 AM CDT 08/31/2024 8:41 AM CDT Hermelindo Butler MD LAB BLOOD ORDER ELANA Final Result Performing Organization Address [facility] de Phone Number [facility] [place] [address] * Protime-INR (08/31/2024 8:12 AM CDT) Pathologist [facility] PT 11.4 9.7 - 13.0 sec INR 1.05 0.90 - 1.20 [facility] Comment: Interpretive data Oral anticoagulant [...] ORDER ELANA Final Result Performing Organization Address [facility] de Phone Number [facility] [place] [address] * (ABNORMAL) Protein electrophoresis with reflex, serum with interpretation (08/31/2024 8:12 AM CDT) Pathologist [facility] Protein, sr 6.0(L) 6.2 - 8.2 g/dL Albumin 3.9 3.2 - 5.0 g/dL [facility] Alpha-1 globulin 0.4 0.2 - 0.4 g/dL [facility] Alpha-2 globulin 0.7 0.5 - 1.0 g/dL [facility] Beta-1 globulin 0.5 0.3 - 0.6 g/dL [facility] Beta-2 globulin 0.3 0.2 - 0.6 g/dL [facility] Gamma globulin 0.2(L) 0.5 - 1.7 g/dL [facility] SPEP interp Please see comment [facility] Comment: No apparent monoclonal peak Decreased gamma globulins Electrophoretic pattern appears similar to previous sample 08/24/2024 See immunotyping for further information Reviewed and signed by Ivan Sims MD, PhD 09/01/2024 Blood 08/31/2024 8:12 AM CDT 08/31/2024 9:34 AM CDT Hermelindo Butler MD LAB BLOOD ORDER ELANA Final Result Performing Organization Address City/[facility]/ZIP Co de Phone Number [facility] [place] [employer] [place] [address] * Magnesium (08/31/2024 8:12 AM CDT) Magnesium 1.8 1.4 - 2.5 mg/dL Blood 08/31/2024 8:12 AM CDT 08/31/2024 8:20 AM CDT Hermelindo Butler MD LAB BLOOD ORDER ELANA Final Result Performing Organization Address City/[facility] Co de Phone Number [facility] [place] [employer] [place] [address] * Lactate dehydrogenase (LD) (08/31/2024 8:12 AM CDT) Lactate dehydrogenase (LDH) 155 100 - 250 Units/L Blood 08/31/2024 8:12 AM CDT 08/31/2024 8:20 AM CDT Hermelindo Butler MD LAB BLOOD ORDER ELANA Final Result Performing Organization Address City/[facility]/ZIP Co de Phone Number [facility] [place] [address] * Gamma GT (08/31/2024 8:12 AM CDT) GGT 27 10 - 50 Units/L Blood 08/31/2024 8:12 AM CDT 08/31/2024 8:20 AM CDT Hermelindo Butler MD LAB BLOOD ORDER ELANA Final Result Performing Organization Address City/[facility] Co de Phone Number [facility] [place] [address] * (ABNORMAL) IgA (08/31/2024 8:12 AM CDT) [facility] Immunoglobulin A <50(L) 70 - 400 mg/dL Blood 08/31/2024 8:12 AM CDT 08/31/2024 8:38 AM CDT Hermelindo Butler MD LAB BLOOD ORDER ELANA Final Result Performing Organization Address [facility] Hospital/[facility] de Phone Number [facility] [place] [address] * (ABNORMAL) IgM (08/31/2024 8:12 AM CDT) Pathologist [facility] [place] Immunoglobulin M <25(L) 40 - 230 mg/dL Blood 08/31/2024 8:12 AM CDT 08/31/2024 8:38 AM CDT Hermelindo Butler MD LAB BLOOD ORDER ELANA Final Result Performing Organization Address City/[facility] de Phone Number [facility] [place] [address] * (ABNORMAL) IgG (08/31/2024 8:12 AM CDT) Pathologist [facility] [place] Immunoglobulin G <300(L) 700 - 1,600 mg/dL Blood 08/31/2024 8:12 AM CDT 08/31/2024 8:38 AM CDT Hermelindo Butler MD LAB BLOOD ORDER ELANA Final Result [facility] [place] [address] * (ABNORMAL) Comprehensive metabolic panel (08/31/2024 8:12 AM CDT) [facility] Sodium 141 135 - 145 mmol/L Potassium, pl 4.0 3.3 - 4.9 mmol/L [facility] Chloride 103 97 - 110 mmol/L [facility] CO2 29 22 - 32 mmol/L [facility] Anion gap 9 2 - 15 mmol/L [facility] BUN 31(H) 6 - 25 mg/dL [facility] Creatinine 1.61(H) 0.80 - 1.30 mg/dL [facility] Glucose 114 70 - 199 mg/dL [facility] Comment: Interpretive Data Fasting glucose [...] Calcium 9.4 8.5 - 10.3 mg/dL [facility] Bilirubin, total 0.4 0.1 - 1.2 mg/dL [facility] Protein, pl 6.5 6.5 - 8.5 g/dL [facility] Albumin 4.1 3.5 - 5.0 g/dL [facility] Alk phos 65 40 - 130 Units/L [facility] ALT 16 7 - 55 Units/L [facility] AST 15 10 - 50 Units/L [facility] Blood 08/31/2024 8:12 AM CDT 08/31/2024 8:20 AM CDT us Hermelindo Butler MD LAB BLOOD ORDER ELANA Final Result Performing Organization Address [facility] Co de Phone Number [facility] Department [place] [address] * SCAN - LABS (08/30/2024) us Provider [...] BLOOD ORDERABLES Final Result Performing Organization Address [facility]/ZIP Co de Phone Number [facility] [place] [address] * (ABNORMAL) Differential, auto (08/26/2024 12:25 AM CDT) Pathologist [facility] [place] Neutrophil abs 5.3 1.5 - 6.5 K/cumm Imm gran abs 0.0 0.0 - 0.1 K/cumm [facility] Lymphocyte abs 0.7(L) 0.8 - 3.3 K/cumm [facility] Monocyte abs 0.6 0.2 - 0.8 K/cumm [facility] Eosinophil abs 0.3 0.0 - 0.5 K/cumm [facility] Basophil abs 0.0 0.0 - 0.1 K/cumm [facility] Neutrophil pct 75.7 % [facility] Comment: Interpretive Data Percent cell count reference ranges are not reported, since discordance with absolute values may lead to misinterpretation of CBC data. Current Interpretive Data was last revised on 2017. Imm gran pct 0.4 % [facility] Comment: Interpretive Data Percent cell count reference ranges are not reported, since discordance with absolute values may lead to misinterpretation of CBC data. Current Interpretive Data was last revised on 2017. Lymphocyte pct 10.4 % [facility] Comment: Interpretive Data Percent cell count reference ranges are not reported, since discordance with absolute values may lead to misinterpretation of CBC data. Current Interpretive Data was last revised on 2017. Monocyte pct 9.0 % [facility] Comment: Interpretive Data Percent cell count reference ranges are not reported, since discordance with absolute values may lead to misinterpretation of CBC data. Current Interpretive Data was last revised on 2017. Eosinophil pct 4.4 % [facility] Comment: Interpretive Data Percent cell count reference ranges are not reported, since discordance with absolute values may lead to misinterpretation of CBC data. Current Interpretive Data was last revised on 2017. Basophil pct 0.1 % [facility] Comment: Interpretive Data Percent cell count reference ranges are not reported, since discordance with absolute values may lead to misinterpretation of CBC data. Current Interpretive Data was last revised on 2017. Blood 08/26/2024 12:2 5 AM CDT 08/26/2024 12:35 AM CDT Karlos Hargrove MD LAB BLOOD ORDERABLES Final Result Performing Organization Address City/[facility]/ZIP Co de Phone Number [facility] [place] [address] * (ABNORMAL) CBC with auto differential (08/26/2024 12:25 AM CDT) Pathologist [facility] [place] WBC 7.0 3.8 - 9.9 K/cumm Hgb 11.8(L) 13.0 - 17.5 g/dL [facility] Hct 35.7(L) 38.9 - 50.3 % [facility] Plt 131(L) 150 - 400 K/cumm [facility] MPV 9.2 9.1 - 12.3 fL [facility] RBC 3.83(L) 4.30 - 5.80 M/cumm [facility] MCV 93.2 81.3 - 96.4 fL [facility] MCH 30.8 27.1 - 33.3 pg [facility] MCHC 33.1 32.3 - 35.7 g/dL [facility] RDW CV 15.4(H) 11.1 - 14.9 % [facility] RDW SD 51.7(H) 35.7 - 48.1 fL [facility] NRBC abs 0.00 0.00 - 0.01 K/cumm [facility] Blood 08/26/2024 12:2 5 AM CDT 08/26/2024 12:35 AM CDT Karlos Hargrove MD LAB BLOOD ORDERABLES Final Result [place] [address] * Type and screen (08/26/2024 12:25 AM CDT) Pathologist [facility] [place] Yehuda, indirect Negative Comment:Patient has previous antibody history ABO Rh A Positive [facility] Blood 08/26/2024 12:2 5 AM CDT 08/26/2024 12:38 AM CDT Narrative [facility] - 08/26/2024 2:23 AM CDT Has the patient had Daratumumab or Isatuximab in the past 6 months?->Unknown Karlos Hargrove MD LAB BLOOD BANK TEST ORDERA BLES Final Result Performing Organization Address [facility] Co de Phone Number [facility] [place] [employer] [place] [address] * (ABNORMAL) Uric acid (08/26/2024 12:25 AM CDT) Pathologist [facility] [place] Uric acid 8.6(H) 3.0 - 8.0 mg/dL Blood 08/26/2024 12:2 5 AM CDT 08/26/2024 12:35 AM CDT Narrative [facility] 08/26/2024 1:10 AM CDT Friday and only. Morning draw. . Karlos Hargrove MD LAB BLOOD ORDERABLES Final Result Performing Organization Address [facility] Co de Phone Number [facility] [place] [place] [address] * Phosphorus (08/26/2024 12:25 AM CDT) Pathologist [facility] [place] Phosphorus, pl 3.6 2.3 - 4.5 mg/dL Blood 08/26/2024 12:2 5 AM CDT 08/26/2024 12:35 AM CDT Karlos Hargrove MD LAB BLOOD ORDERABLES Final Result Performing Organization Address [facility] Co de Phone Number [facility] [address] * Magnesium (08/26/2024 12:25 AM CDT) Pathologist [facility] [place] Magnesium 1.7 1.4 - 2.5 mg/dL Blood 08/26/2024 12:2 5 AM CDT 08/26/2024 12:35 AM CDT Karlos Hargrove MD LAB BLOOD ORDERABLES Final Result Performing Organization Address City/[facility]/ZIP Co de Phone Number [facility] [place] [address] * Lactate dehydrogenase (LD) (08/26/2024 12:25 AM CDT) [facility] Lactate dehydrogenase (LDH) 167 100 - 250 Units/L Blood 08/26/2024 12:2 5 AM CDT 08/26/2024 12:35 AM CDT Narrative [facility] - 08/26/2024 1:10 AM CDT Friday and only. Morning draw. Karlos Hargrove MD LAB BLOOD ORDERABLES Final Result Performing Organization Address City/[facility] [place] [address] * (ABNORMAL) Comprehensive metabolic panel (08/26/2024 12:25 AM CDT) [facility] Sodium 148(H) 135 - 145 mmol/L Potassium, pl 3.4 3.3 - 4.9 mmol/L [facility] Chloride 108 97 - 110 mmol/L [facility] CO2 28 22 - 32 mmol/L [facility] Anion gap 12 2 - 15 mmol/L [facility] BUN 35(H) 6 - 25 mg/dL [facility] Creatinine 2.27(H) 0.80 - 1.30 mg/dL [facility] Glucose 107 70 - 199 mg/dL [facility] Comment: Interpretive Data Fasting glucose [...] Calcium 8.9 8.5 - 10.3 mg/dL [facility] Bilirubin, total 0.6 0.1 - 1.2 mg/dL [facility] Protein, pl 5.9(L) 6.5 - 8.5 g/dL [facility] Albumin 3.7 3.5 - 5.0 g/dL [facility] Alk phos 60 40 - 130 Units/L [facility] ALT 15 7 - 55 Units/L [facility] AST 13 10 - 50 Units/L [facility] Blood 08/26/2024 12:2 5 AM CDT 08/26/2024 12:35 AM CDT us Karlos Hargrove MD LAB BLOOD ORDERABLES Final Result [facility] Department [place] [address] * US Vein Duplex Lower Extremity Bilateral Complete (08/25/2024 9:30 AM CDT) Anatomical Region Laterality Modality Vascular Bilateral Ultrasound 08/25/2024 8:37 AM CDT Narrative 08/27/2024 11:10 AM CDT [facility] - Department of Vascular Surgery, Vascular Laboratory [address] [place] [id number] Lower Extremity Venous Ultrasound Report Patient Name: BUFFY VALLECarl : 1950 (73y 8m) Study Date: 08/25/2024 8:37:41 AM Gender: M Tech: Location: [id number] Ref Provider: OLGA KEITH Quality: Adequate Order Provider: OLGA KEITH PROCEDURES: Vascular Report: Venous Duplex imaging was performed bilaterally in the lower extremities. The common femoral, femoral, popliteal, posterior tibial, peroneal veins were evaluated for patency, spontaneity and phasicity with Doppler, compression and augmentation maneuvers. Great saphenous vein proximal at the junction was evaluated with compression maneuvers. INDICATIONS: Localized edema. FINDINGS: Performing Scrap Baller: Farzana Owens RVT. Bilateral: Venous Doppler signals [...] above. Electronically Signed By: Cesar Cabello MD [facility] [phone] 08/27/2024 10:10:26 AM CDT Procedure Note Cesar Cabello MD - 08/27/2024 [facility] - Department of Vascular Surgery,Vascular Laboratory [address] [place] [id number] Lower Extremity Venous Ultrasound Report Patient Name: BUFFY VALLE B : 1950 (73y 8m) Study Date: 08/25/2024 8:37:41 AM Gender: M Tech: Location: [id number] Ref Provider: OLGA KEITH Quality: Adequate Order Provider: OLGA KEITH PROCEDURES: Vascular Report: Venous Duplex imaging was performed bilaterally in the lower extremities.The common femoral, femoral, popliteal, posterior tibial, peroneal veins wereevaluated for patency, spontaneity and phasicity with Doppler, compression and augmentationmaneuvers. Great saphenous vein proximal at the junction was evaluated with compressionmaneuvers. INDICATIONS: Localized edema. FINDINGS: Performing Scrap Baller: Farzana Owens RVT. Bilateral: Venous Doppler signals [...] above. Electronically Signed By: Cesar Cabello MD [facility] [phone] 08/27/2024 10:10:26 AM CDT Olga Keith MD [facility] [place] PROCEDURES Final Result [...] of Race in Diagnosing Kidney Disease, JASN 2021). The CKD-EPI equation should not be used for patients with unstable renal function and has not been validated in children and those over 70. Current interpretive data was last reviewed 2021. Blood 08/25/2024 12:3 4 AM CDT 08/25/2024 12:55 AM CDT us Karlos Hargrove MD LAB BLOOD ORDERABLES Final Result [facility] [place] [address] * (ABNORMAL) Differential, auto (08/25/2024 12:34 AM CDT) Neutrophil abs 5.2 1.5 - 6.5 K/cumm Imm gran abs 0.1 0.0 - 0.1 K/cumm [facility] Lymphocyte abs 0.5(L) 0.8 - 3.3 K/cumm [facility] Monocyte abs 0.5 0.2 - 0.8 K/cumm [facility] Eosinophil abs 0.4 0.0 - 0.5 K/cumm [facility] Basophil abs 0.0 0.0 - 0.1 K/cumm [facility] Neutrophil pct 77.6 % [facility] Comment: Interpretive Data Percent cell count reference ranges are not reported, since discordance with absolute values may lead to misinterpretation of CBC data. Current Interpretive Data was last revised on 2017. Imm gran pct 0.7 % [facility] Comment: Interpretive Data Percent cell count reference ranges are not reported, since discordance with absolute values may lead to misinterpretation of CBC data. Current Interpretive Data was last revised on 2017. Lymphocyte pct 7.9 % [facility] Comment: Interpretive Data Percent cell count reference ranges are not reported, since discordance with absolute values may lead to misinterpretation of CBC data. Current Interpretive Data was last revised on 2017. Monocyte pct 7.5 % [facility] Comment: Interpretive Data Percent cell count reference ranges are not reported, since discordance with absolute values may lead to misinterpretation of CBC data. Current Interpretive Data was last revised on 2017. Eosinophil pct 6.0 % [facility] Comment: Interpretive Data Percent cell count reference ranges are not reported, since discordance with absolute values may lead to misinterpretation of CBC data. Current Interpretive Data was last revised on 2017. Basophil pct 0.3 % [facility] Comment: Interpretive Data Percent cell count reference ranges are not reported, since discordance with absolute values may lead to misinterpretation of CBC data. Current Interpretive Data was last revised on 2017. Blood 08/25/2024 12:3 4 AM CDT 08/25/2024 12:57 AM CDT Karlos Hargrove MD LAB BLOOD ORDERABLES Final Result Performing Organization Address City/[facility]/ZIP Co de Phone Number [facility] [place] [address] * (ABNORMAL) CBC with auto differential (08/25/2024 12:34 AM CDT) WBC 6.7 3.8 - 9.9 K/cumm Hgb 11.2(L) 13.0 - 17.5 g/dL [facility] Hct 33.3(L) 38.9 - 50.3 % [facility] Plt 136(L) 150 - 400 K/cumm [facility] MPV 9.5 9.1 - 12.3 fL [facility] RBC 3.57(L) 4.30 - 5.80 M/cumm [facility] MCV 93.3 81.3 - 96.4 fL [facility] MCH 31.4 27.1 - 33.3 pg [facility] MCHC 33.6 32.3 - 35.7 g/dL [facility] RDW CV 15.3(H) 11.1 - 14.9 % [facility] RDW SD 51.0(H) 35.7 - 48.1 fL [facility] NRBC abs 0.00 0.00 - 0.01 K/cumm [facility] Blood 08/25/2024 12:3 4 AM CDT 08/25/2024 12:57 AM CDT Karlos Hargrove MD LAB BLOOD ORDERABLES Final Result Performing Organization Address [facility]/ZIP Co de Phone Number [facility] [place] [address] * Phosphorus (08/25/2024 12:34 AM CDT) [facility] Phosphorus, pl 3.7 2.3 - 4.5 mg/dL Blood 08/25/2024 12:3 4 AM CDT 08/25/2024 12:55 AM CDT Karlos Hargrove MD LAB BLOOD [place] [address] * Magnesium (08/25/2024 12:34 AM CDT) [facility] Magnesium 1.9 1.4 - 2.5 mg/dL Blood 08/25/2024 12:3 4 AM CDT 08/25/2024 12:55 AM CDT Karlos Hargrove MD LAB BLOOD ORDERABLES Final Result [facility] [place] [address] * (ABNORMAL) Comprehensive metabolic panel (08/25/2024 12:34 AM CDT) [facility] Sodium 147(H) 135 - 145 mmol/L Potassium, pl 3.2(L) 3.3 - 4.9 mmol/L [facility] Chloride 109 97 - 110 mmol/L [facility] CO2 26 22 - 32 mmol/L [facility] Anion gap 12 2 - 15 mmol/L [facility] BUN 47(H) 6 - 25 mg/dL [facility] Creatinine 2.74(H) 0.80 - 1.30 mg/dL [facility] Glucose 154 70 - 199 mg/dL [facility] Comment: Interpretive Data Fasting glucose [...] 2022. Calcium 8.4(L) 8.5 - 10.3 mg/dL [facility] Bilirubin, total 0.4 0.1 - 1.2 mg/dL [facility] Protein, pl 5.9(L) 6.5 - 8.5 g/dL [facility] Albumin 3.9 3.5 - 5.0 g/dL [facility] Alk phos 61 40 - 130 Units/L [facility] ALT 18 7 - 55 Units/L [facility] AST 17 10 - 50 Units/L [facility] Blood 08/25/2024 12:3 4 AM CDT 08/25/2024 12:55 AM CDT us Karlos Hargrove MD LAB BLOOD ORDERABLES Final Result Performing Organization Address City/[facility]/ZIP Co de Phone Number [facility] [place] [employer] [place] [address] * Sodium, urine, random (08/24/2024 5:16 PM CDT) Sodium, ur 44 mmol/L Comment: Interpretive Data No reference range established. Current interpretive data was last revised 2018. Urine 08/24/2024 5:16 PM CDT 08/24/2024 5:31 PM CDT us Olga Keith MD LAB URINE ORDERABLES Final Resul t [facility] [place] [address] * CT Abdomen Pelvis WO Contrast (08/24/2024 [...] gran abs 0.0 0.0 - 0.1 K/cumm [facility] Lymphocyte abs 0.7(L) 0.8 - 3.3 K/cumm [facility] Monocyte abs 0.6 0.2 - 0.8 K/cumm [facility] Eosinophil abs 0.5 0.0 - 0.5 K/cumm [facility] Basophil abs 0.0 0.0 - 0.1 K/cumm [facility] Neutrophil pct 73.7 % [facility] Comment: Interpretive Data Percent cell count reference ranges are not reported, since discordance with absolute values may lead to misinterpretation of CBC data. Current Interpretive Data was last revised on 2017. Imm gran pct 0.6 % [facility] Comment: Interpretive Data Percent cell count reference ranges are not reported, since discordance with absolute values may lead to misinterpretation of CBC data. Current Interpretive Data was last revised on 2017. Lymphocyte pct 10.0 % [facility] Comment: Interpretive Data Percent cell count reference ranges are not reported, since discordance with absolute values may lead to misinterpretation of CBC data. Current Interpretive Data was last revised on 2017. Monocyte pct 8.3 % [facility] Comment: Interpretive Data Percent cell count reference ranges are not reported, since discordance with absolute values may lead to misinterpretation of CBC data. Current Interpretive Data was last revised on 2017. Eosinophil pct 7.1 % [facility] Comment: Interpretive Data Percent cell count reference ranges are not reported, since discordance with absolute values may lead to misinterpretation of CBC data. Current Interpretive Data was last revised on 2017. Basophil pct 0.3 % [facility] Comment: Interpretive Data Percent cell count reference ranges are not reported, since discordance with absolute values may lead to misinterpretation of CBC data. Current Interpretive Data was last revised on 2017. Blood 08/24/2024 2:30 AM CDT 08/24/2024 1:28 AM CDT Karlos Hargrove MD LAB BLOOD ORDERABLES Final Result Performing Organization Address City/[facility]/ZIP Co de Phone Number [facility] [place] [address] * (ABNORMAL) CBC with auto differential (08/24/2024 2:30 AM CDT) [facility] WBC 6.6 3.8 - 9.9 K/cumm Hgb 10.9(L) 13.0 - 17.5 g/dL [facility] Hct 33.1(L) 38.9 - 50.3 % [facility] Plt 130(L) 150 - 400 K/cumm [facility] MPV 10.0 9.1 - 12.3 fL [facility] RBC 3.50(L) 4.30 - 5.80 M/cumm [facility] MCV 94.6 81.3 - 96.4 fL [facility] MCH 31.1 27.1 - 33.3 pg [facility] MCHC 32.9 32.3 - 35.7 g/dL [facility] RDW CV 15.3(H) 11.1 - 14.9 % [facility] RDW SD 51.8(H) 35.7 - 48.1 fL [facility] NRBC abs 0.00 0.00 - 0.01 K/cumm [facility] Blood 08/24/2024 2:30 AM CDT 08/24/2024 1:28 AM CDT Karlos Hargrove MD LAB BLOOD ORDERABLES Final Result [facility] [place] [address] * (ABNORMAL) eGFR (08/24/2024 1:12 AM CDT) Pathologist [facility] eGFR 20(L) >=60 mL/min/1. 73 m2 Comment: [...] BLOOD ORDERABLES Final Result Performing Organization Address City/[facility] Co de Phone Number [facility] [place] [place] [address] * aPTT (08/24/2024 1:12 AM CDT) aPTT [...] BLOOD ORDERABLES Final Result Performing Organization Address City/[facility]/ZIP Co de Phone Number [facility] [place] [place] [address] * Protime-INR (08/24/2024 1:12 AM CDT) PT 11.7 9.7 - 13.0 sec INR 1.08 0.90 - 1.20 [facility] Comment: Interpretive data Oral anticoagulant therapeutic ranges: Venous thromboembolism prophylaxis or treatment: 2.0-3.0 CARDIOLOGY Standard range: 2.0-3.0 High-intensity range: 2.5-3.5 Refer to indication-specific guidelines for appropriate target ranges for prosthetic heart valve replacement. Current interpretive data was last revised on 2019. Blood 08/24/2024 1:12 AM CDT 08/24/2024 1:53 AM CDT Karlos Hargrove MD LAB BLOOD ORDERABLES Final Result Performing Organization Address [facility]/ZIP Co de Phone Number [facility] [place] [address] * Type and screen (08/24/2024 1:12 AM CDT) Yehuda, indirect Negative Comment:Patient has previous antibody history ABO Rh A Positive [facility] Blood 08/24/2024 1:12 AM CDT 08/24/2024 1:36 AM CDT Narrative [facility] - 08/24/2024 2:36 AM CDT Has the patient had Daratumumab or Isatuximab in the past 6 months?->Unknown Karlos Hargrove MD LAB BLOOD BANK TEST ORDERA BLES Final Result Performing Organization Address City/[facility]/ZIP Co de Phone Number [facility] [place] [place] [address] * (ABNORMAL) Uric acid (08/24/2024 1:12 AM CDT) Uric acid 9.5(H) 3.0 - 8.0 mg/dL Blood 08/24/2024 1:12 AM CDT 08/24/2024 1:35 AM CDT Narrative [facility] - 08/24/2024 2:47 AM CDT Friday and only. Morning draw. . us Karlos Hargrove MD LAB BLOOD ORDERABLES Final Result Performing Organization Address [facility] de Phone Number [place] [address] * Phosphorus (08/24/2024 1:12 AM CDT) Phosphorus, pl 4.5 2.3 - 4.5 mg/dL Blood 08/24/2024 1:12 AM CDT 08/24/2024 1:35 AM CDT us Karlos Hargrove MD LAB BLOOD ORDERABLES Final Result Performing Organization Address [facility] Co de Phone Number [place] [address] * Magnesium (08/24/2024 1:12 AM CDT) Magnesium 2.0 1.4 - 2.5 mg/dL Blood 08/24/2024 1:12 AM CDT 08/24/2024 1:35 AM CDT us Karlos Hargrove MD LAB BLOOD ORDERABLES Final Result Performing Organization Address [facility] [place] [address] * Lactate dehydrogenase (LD) (08/24/2024 1:12 AM CDT) Lactate dehydrogenase (LDH) 226 100 - 250 Units/L Blood 08/24/2024 1:12 AM CDT 08/24/2024 1:35 AM CDT Narrative [facility] - 08/24/2024 2:47 AM CDT Friday and only. Morning draw. Karlos Hargrove MD LAB BLOOD ORDERABLES Final Result [facility] [place] [address] * (ABNORMAL) Comprehensive metabolic panel (08/24/2024 1:12 AM CDT) Sodium 148(H) 135 - 145 mmol/L Potassium, pl 3.6 3.3 - 4.9 mmol/L [facility] Chloride 111(H) 97 - 110 mmol/L [facility] CO2 25 22 - 32 mmol/L [facility] Anion gap 12 2 - 15 mmol/L [facility] BUN 56(H) 6 - 25 mg/dL [facility] Creatinine 3.16(H) 0.80 - 1.30 mg/dL [facility] Glucose 102 70 - 199 mg/dL [facility] Comment: Interpretive Data Fasting glucose [...] 2022. Calcium 8.5 8.5 - 10.3 mg/dL [facility] Bilirubin, total 0.4 0.1 - 1.2 mg/dL [facility] Protein, pl 5.7(L) 6.5 - 8.5 g/dL [facility] Albumin 3.6 3.5 - 5.0 g/dL [facility] Alk phos 62 40 - 130 Units/L [facility] ALT 16 7 - 55 Units/L [facility] AST 11 10 - 50 Units/L [facility] Blood 08/24/2024 1:12 AM CDT 08/24/2024 1:35 AM CDT us Karlos Hargrove MD LAB BLOOD ORDERABLES Final Result [facility] [place] [address] * US Kidney Complete (08/23/2024 8:12 PM [...] ur Straw Yellow Clarity, ur Clear Clear [facility] Specific gravity, ur 1.011 1.003 - 1.030 [facility] pH, urine 5.5 [facility] Comment: Interpretive Data U rine pH is affected by diet, medications, systemic acid-base disturbances, and renal tubular function. pH may affect urinary stone formation. For example, urine pH below 6.0 may help reduce the tendency for calcium phosphate stones and pH greater than 6.0 may reduce the tendency for uric acid stone formation. Source: [facility] [employer] Current Interpretive Data was last revised on 2017 Protein, ur ql Negative Negative [facility] Glucose, ur ql Negative Negative [facility] Ketones, ur Negative Negative [facility] Bilirubin, ur Negative Negative [facility] Blood, ur 2+(A) Negative [facility] Urobilinogen, ur <2.0 <2.0 mg/dL [facility] Nitrite, ur Negative Negative [facility] Leukocyte esterase, ur Trace(A) Negative [facility] UA reflex comment Reflex to microscopic UA will be performed. [facility] Urine 08/23/2024 7:01 PM CDT 08/23/2024 7:15 PM CDT Kinga Jones NP LAB URINE ORDERABLES Angeles nicole Result [facility] [place] [address] * Protein / creatinine ratio, urine, random (08/23/2024 7:01 PM CDT) Pathologist [facility] [place] Protein, ur, quant 6.4 mg/dL Comment: Interpretive Data No reference range established. Current interpretive data was last revised 2018. Creatinine Ur 74.0 mg/dL [facility] Comment: Interpretive Data No reference range established. Current interpretive data was last revised 2018. Protein/creatinin e ratio 86.5 0.0 - 180.0 mg/g CR [facility] Urine 08/23/2024 7:01 PM CDT 08/23/2024 7:28 PM CDT Kinga Jones [employer] LAB URINE ORDERABLES Angeles l Result Performing Organization Address City/[facility] Co de Phone Number [facility] [place] [address] * (ABNORMAL) Urinalysis, microscopic only (08/23/2024 7:01 PM CDT) [facility] WBC, ur 0-5 0 - 5 /HPF RBC, ur 6-10(A) 0 - 2 /HPF [facility] Urine 08/23/2024 7:01 PM CDT 08/23/2024 7:15 PM CDT Kinga Jones [employer] LAB URINE ORDERABLES Angeles l Result Performing Organization Address City/[facility]/ZIP Co de Phone Number [facility] [place] [address] * Urine culture Urine, clean voided (08/23/2024 7:01 PM CDT) [facility] Report Final Report: Less than 100,000 colonies/mL (clinically insignificant growth based on current clinical standards) Organism (CLINICALLY INSIGNIFICANT GROWTH [facility] Urine, clean voided 08/23/2024 7:01 PM CDT 08/23/2024 8:52 PM CDT Narrative [facility] - 08/25/2024 8:02 AM CDT Indications for Culture:->Other (specify) Other Indication:->elevated creatinine Specimen received in a sterile container. Testing performed by [facility] ([phone]) Kinga Jones NP LAB MICROBIOLOGY - GENERA L ORDERABLES Final Result Performing Organization Address City/[facility]/ZIP Co de Phone Number [facility] [place] [address] * Immunotyping, serum with interpretation (08/23/2024 6:04 PM CDT) Immunosubtraction Please see comment Comment: NO PARAPROTEIN DETECTED Reviewed and signed by Fernando Nunez MD, PhD 08/24/2024 Blood 08/23/2024 6:04 PM CDT 08/23/2024 6:13 PM CDT Hermelindo Butler MD LAB BLOOD ORDER ELANA Final Result Performing Organization Address [facility] Co de Phone Number [facility] Department [place] [address] * (ABNORMAL) eGFR (08/23/2024 6:04 PM CDT) [...] MD LAB BLOOD ORDER ELANA Final Result [facility] [place] [address] * (ABNORMAL) Differential, auto (08/23/2024 6:04 PM CDT) Neutrophil abs 6.5 1.5 - 6.5 K/cumm Imm gran abs 0.0 0.0 - 0.1 K/cumm [facility] Lymphocyte abs 0.7(L) 0.8 - 3.3 K/cumm [facility] Monocyte abs 0.6 0.2 - 0.8 K/cumm [facility] Eosinophil abs 0.6(H) 0.0 - 0.5 K/cumm [facility] Basophil abs 0.0 0.0 - 0.1 K/cumm [facility] Neutrophil pct 77.0 % [facility] Comment: Interpretive Data Percent cell count reference ranges are not reported, since discordance with absolute values may lead to misinterpretation of CBC data. Current Interpretive Data was last revised on 2017. Imm gran pct 0.5 % [facility] Comment: Interpretive Data Percent cell count reference ranges are not reported, since discordance with absolute values may lead to misinterpretation of CBC data. Current Interpretive Data was last revised on 2017. Lymphocyte pct 8.3 % [facility] Comment: Interpretive Data Percent cell count reference ranges are not reported, since discordance with absolute values may lead to misinterpretation of CBC data. Current Interpretive Data was last revised on 2017. Monocyte pct 7.3 % [facility] Comment: Interpretive Data Percent cell count reference ranges are not reported, since discordance with absolute values may lead to misinterpretation of CBC data. Current Interpretive Data was last revised on 2017. Eosinophil pct 6.5 % [facility] Comment: Interpretive Data Percent cell count reference ranges are not reported, since discordance with absolute values may lead to misinterpretation of CBC data. Current Interpretive Data was last revised on 2017. Basophil pct 0.4 % [facility] Comment: Interpretive Data Percent cell count reference ranges are not reported, since discordance with absolute values may lead to misinterpretation of CBC data. Current Interpretive Data was last revised on 2017. Blood 08/23/2024 6:04 PM CDT 08/23/2024 6:12 PM CDT us Hermelindo Butler MD LAB BLOOD ORDER ELANA Final Result [facility] [place] [address] * (ABNORMAL) Immunoglobulin free light chains (08/23/2024 6:04 PM CDT) [place]/Lambda ratio [facility] <0.40 0.26 - 1.65 Comment: Interpretive Data The Binding Site FreeLite assay procedure was used. Results from different manufacturers or methods may not be comparable. Serial testing should be performed using the same methods and instrumentation. Current Interpretive Data was last revised on 2023. [place] free light chain [facility] <0.06(L) 0.33 - 1.94 mg/dL [facility] Comment: Interpretive Data The Binding Site FreeLite assay procedure was used. Results from different manufacturers or methods may not be comparable. Serial testing should be performed using the same methods and instrumentation. Current Interpretive Data was last revised on 2023. Lambda free light chain [facility] 0.15(L) 0.57 - 2.63 mg/dL [facility] Comment: Interpretive Data The Binding Site FreeLite assay procedure was used. Results from different manufacturers or methods may not be comparable. Serial testing should be performed using the same methods and instrumentation. Current Interpretive Data was last revised on 2023. Blood 08/23/2024 6:04 PM CDT 08/23/2024 6:12 PM CDT us Hermelindo Butler MD LAB BLOOD ORDER ELANA Final Result Performing Organization Address [facility]/ZIP Co de Phone Number [facility] [place] [address] * (ABNORMAL) CBC with auto differential (08/23/2024 6:04 PM CDT) [facility] WBC 8.5 3.8 - 9.9 K/cumm Hgb 11.8(L) 13.0 - 17.5 g/dL [facility] Hct 35.6(L) 38.9 - 50.3 % [facility] Plt 131(L) 150 - 400 K/cumm [facility] MPV 9.8 9.1 - 12.3 fL [facility] RBC 3.78(L) 4.30 - 5.80 M/cumm [facility] MCV 94.2 81.3 - 96.4 fL [facility] MCH 31.2 27.1 - 33.3 pg [facility] MCHC 33.1 32.3 - 35.7 g/dL [facility] RDW CV 15.2(H) 11.1 - 14.9 % [facility] RDW SD 51.2(H) 35.7 - 48.1 fL [facility] NRBC abs 0.00 0.00 - 0.01 K/cumm [facility] Blood 08/23/2024 6:04 PM CDT 08/23/2024 6:12 PM CDT Hermelindo Butler MD LAB BLOOD ORDER ELANA Final Result [facility] [place] [address] * (ABNORMAL) Uric acid (08/23/2024 6:04 PM CDT) [facility] Uric acid 9.5(H) 3.0 - 8.0 mg/dL Blood 08/23/2024 6:04 PM CDT 08/23/2024 6:13 PM CDT Hermelindo Butler MD LAB BLOOD ORDER ELANA Final Result Performing Organization Address City/[facility]/ZIP Co de Phone Number [facility] [place] [employer] [place] [address] * (ABNORMAL) Protein electrophoresis with reflex, serum with interpretation (08/23/2024 6:04 PM CDT) [facility] Protein, sr 5.9(L) 6.2 - 8.2 g/dL Albumin 3.9 3.2 - 5.0 g/dL [facility] Alpha-1 globulin 0.4 0.2 - 0.4 g/dL [facility] Alpha-2 globulin 0.7 0.5 - 1.0 g/dL [facility] Beta-1 globulin 0.4 0.3 - 0.6 g/dL [facility] Beta-2 globulin 0.3 0.2 - 0.6 g/dL [facility] Gamma globulin 0.2(L) 0.5 - 1.7 g/dL [facility] SPEP interp Please see comment [facility] Comment: No apparent monoclonal peak Decreased gamma globulins Electrophoretic pattern appears similar to previous sample 08/04/24 See immunotyping for further information Reviewed and signed by Fernando Nunez MD, PhD 08/24/2024 Blood 08/23/2024 6:04 PM CDT 08/23/2024 6:13 PM CDT Hermelindo Butler MD LAB BLOOD ORDER ELANA Final Result [facility] [place] [address] * (ABNORMAL) Phosphorus (08/23/2024 6:04 PM CDT) Pathologist [facility] [place] Phosphorus, pl 4.7(H) 2.3 - 4.5 mg/dL Blood 08/23/2024 6:04 PM CDT 08/23/2024 6:13 PM CDT Hermelindo Butler MD LAB BLOOD ORDER ELANA Final Result [facility] Department [place] [address] * Magnesium (08/23/2024 6:04 PM CDT) [facility] Magnesium 1.9 1.4 - 2.5 mg/dL Blood 08/23/2024 6:04 PM CDT 08/23/2024 6:13 PM CDT Hermelindo Butler MD LAB BLOOD ORDER ELANA Final Result Performing Organization Address City/[facility] Co de Phone Number [facility] [place] [address] * Lactate dehydrogenase (LD) (08/23/2024 6:04 PM CDT) [facility] Lactate dehydrogenase (LDH) 198 100 - 250 Units/L Blood 08/23/2024 6:04 PM CDT 08/23/2024 6:13 PM CDT Hermelindo Butler MD LAB BLOOD ORDER ELANA Final Result Performing Organization Address City/[facility] Co de Phone Number [facility] Department [place] [address] * (ABNORMAL) IgA (08/23/2024 6:04 PM CDT) Pathologist [facility] [place] Immunoglobulin A <50(L) 70 - 400 mg/dL Blood 08/23/2024 6:04 PM CDT 08/23/2024 6:13 PM CDT Hermelindo Butler MD LAB BLOOD ORDER ELANA Final Result Performing Organization Address City/[facility] Co de Phone Number [facility] [place] [address] * (ABNORMAL) IgM (08/23/2024 6:04 PM CDT) [facility] Immunoglobulin M <25(L) 40 - 230 mg/dL Blood 08/23/2024 6:04 PM CDT 08/23/2024 6:13 PM CDT Hermelindo Butler MD LAB BLOOD ORDER ELANA Final Result Performing Organization Address [facility] Co de Phone Number [facility] Department [place] [address] * (ABNORMAL) IgG (08/23/2024 6:04 PM CDT) [facility] Immunoglobulin G <300(L) 700 - 1,600 mg/dL Blood 08/23/2024 6:04 PM CDT 08/23/2024 6:13 PM CDT Hermelindo Butler MD LAB BLOOD ORDER ELANA Final Result Performing Organization Address City/[facility] Co de Phone Number [facility] [place] [address] * (ABNORMAL) Comprehensive metabolic panel (08/23/2024 6:04 PM CDT) [facility] Sodium 146(H) 135 - 145 mmol/L Potassium, pl 3.8 3.3 - 4.9 mmol/L [facility] Chloride 107 97 - 110 mmol/L [facility] CO2 26 22 - 32 mmol/L [facility] Anion gap 13 2 - 15 mmol/L [facility] BUN 58(H) 6 - 25 mg/dL [facility] Creatinine 3.37(H) 0.80 - 1.30 mg/dL [facility] Glucose 89 70 - 199 mg/dL [facility] Comment: Interpretive Data Fasting glucose [...] 2022. Calcium 8.9 8.5 - 10.3 mg/dL [facility] Bilirubin, total 0.4 0.1 - 1.2 mg/dL [facility] Protein, pl 6.2(L) 6.5 - 8.5 g/dL [facility] Albumin 4.0 3.5 - 5.0 g/dL [facility] Alk phos 68 40 - 130 Units/L [facility] ALT 16 7 - 55 Units/L [facility] AST 12 10 - 50 Units/L [facility] Blood 08/23/2024 6:04 PM CDT 08/23/2024 6:13 PM CDT Hermelindo Butler MD LAB BLOOD ORDER ELANA Final Result [facility] [place] [address] * SCAN - LABS (08/20/2024) us Provider Scanning Final Result * SCAN - LABS (08/10/2024) us Provider Scanning Final Result * US Kidney Complete (08/06/2024 2:42 PM CHARTER DRIVER) Anatomical Region Laterality Modality Kidney N/A Ultrasound 08/06/2024 3:27 PM CHARTER DRIVER Impressions 08/06/2024 3:27 PM CHARTER DRIVER 1. Mild nephromegaly with mild to moderate hydronephrosis bilaterally. 2. Incomplete bladder emptying with post void bladder residual of 397 mL. Electronically signed by: Dylan Tinajero M.D. Narrative 08/06/2024 3:27 PM CHARTER DRIVER EXAMINATION: COMPLETE RENAL SONOGRAM HISTORY: Rising creatinine. [...] by: Dylan Tinajero M.D. Hermelindo Butler MD [facility] PROCEDUR ES Final Result * (ABNORMAL) Urinalysis reflex to microscopic (08/06/2024 9:19 AM CHARTER DRIVER) Color, ur Straw Yellow Clarity, ur Clear Clear [facility] Specific gravity, ur 1.013 1.003 - 1.030 [facility] pH, urine 5.5 [facility] Comment: Interpretive Data U rine pH is affected by diet, medications, systemic acid-base disturbances, and renal tubular function. pH may affect urinary stone formation. For example, urine pH below 6.0 may help reduce the tendency for calcium phosphate stones and pH greater than 6.0 may reduce the tendency for uric acid stone formation. Source: [facility] Current Interpretive Data was last revised on 2017 Protein, ur ql Negative Negative [facility] Glucose, ur ql Negative Negative [facility] Ketones, ur Negative Negative [facility] Bilirubin, ur Negative Negative [facility] Blood, ur 3+(A) Negative [facility] Urobilinogen, ur <2.0 <2.0 mg/dL [facility] Nitrite, ur Negative Negative [facility] Leukocyte esterase, ur Trace(A) [facility] UA reflex comment Reflex to microscopic UA will be performed. [facility] Urine 08/06/2024 9:19 AM CHARTER DRIVER 08/06/2024 9:19 AM CHARTER DRIVER us Lyndsey Fagan NP LAB URINE ORDERABLES Angeles nicole Result [facility] [place] [address] * Protein / creatinine ratio, urine, random (08/06/2024 9:19 AM CHARTER DRIVER) Protein, ur, quant 7.9 mg/dL Comment: Interpretive Data No reference range established. Current interpretive data was last revised 2018. Creatinine Ur 77.4 mg/dL [facility] Comment: Interpretive Data No reference range established. Current interpretive data was last revised 2018. Protein/creatinin e ratio 102.1 0.0 - 180.0 mg/g CR [facility] Urine 08/06/2024 9:19 AM CHARTER DRIVER 08/06/2024 9:41 AM CHARTER DRIVER us Lyndsey Fagan LAB URINE ORDERABLES Angeles l Result Performing Organization Address City/[facility] Co de Phone Number [facility] [place] [address] * (ABNORMAL) Urinalysis, microscopic only (08/06/2024 9:19 AM CHARTER DRIVER) WBC, ur 6-10(A) 0 - 5 /HPF RBC, ur 21-50(A) 0 - 2 /HPF [facility] Bacteria, ur Trace(A) [facility] Mucous, ur Present(A) [facility] Urine 08/06/2024 9:19 AM CHARTER DRIVER 08/06/2024 9:19 AM CHARTER DRIVER Lyndsey Fagan LAB URINE ORDERABLES Angeles l Result Performing Organization Address [facility] de Phone Number [facility] [place] [address] * (ABNORMAL) eGFR (08/06/2024 7:43 AM CHARTER DRIVER) eGFR 31(L) >=60 mL/min/1. 73 m2 Comment: [...] last reviewed 2021. Blood 08/06/2024 7:43 AM CHARTER DRIVER 08/06/2024 7:52 AM CHARTER DRIVER Hermelindo Butler MD LAB BLOOD ORDER ELANA Final Result [facility] Department [place] [address] * (ABNORMAL) Differential, auto (08/06/2024 7:43 AM CHARTER DRIVER) Neutrophil abs 5.4 1.5 - 6.5 K/cumm Comment:Testing performed by : [facility], [address] [place], [place] [phone] Lymphocyte abs 0.8 0.8 - 3.3 K/cumm [facility] Comment:Testing performed by : [facility], [address] [place], [place] [phone] Monocyte abs 0.5 0.2 - 0.8 K/cumm [facility] Comment:Testing performed by : [facility], [address] [place], [place] [phone] Eosinophil abs 0.7(H) 0.0 - 0.5 K/cumm [facility] Comment:Testing performed by : [facility], [address] [place] [phone] Basophil abs 0.0 0.0 - 0.1 K/cumm [facility] Comment:Testing performed by : [facility], [address] [place] [phone] Neutrophil pct 72.4 % [facility] Comment: Interpretive Data Percent cell count reference ranges are not reported, since discordance with absolute values may lead to misinterpretation of CBC data. Current Interpretive Data was last revised on 2017. Testing performed by: [facility], [address] [place] [phone] Lymphocyte pct 10.4 % [facility] Comment: Interpretive Data Percent cell count reference ranges are not reported, since discordance with absolute values may lead to misinterpretation of CBC data. Current Interpretive Data was last revised on 2017. Testing performed by: [facility], [address] [place] [phone] Monocyte pct 7.3 % [facility] Comment: Interpretive Data Percent cell count reference ranges are not reported, since discordance with absolute values may lead to misinterpretation of CBC data. Current Interpretive Data was last revised on 2017. Testing performed by: [facility], [address] [place] [phone] Eosinophil pct 9.4 % [facility] Comment: Interpretive Data Percent cell count reference ranges are not reported, since discordance with absolute values may lead to misinterpretation of CBC data. Current Interpretive Data was last revised on 2017. Testing performed by: [facility], [address] [place] [phone] Basophil pct 0.5 % [facility] Comment: Interpretive Data Percent cell count reference ranges are not reported, since discordance with absolute values may lead to misinterpretation of CBC data. Current Interpretive Data was last revised on 2017. Testing performed by: [facility], [address] [place] [phone] Blood 08/06/2024 7:43 AM CHARTER DRIVER 08/06/2024 7:51 AM CHARTER DRIVER Hermelindo Butler MD LAB BLOOD ORDER ELANA Final Result [facility] [place] [address] * (ABNORMAL) CBC with auto differential (08/06/2024 7:43 AM CHARTER DRIVER) WBC 7.5 3.8 - 9.9 K/cumm Comment:Testing performed by : [facility], [address] [place] [phone] Hgb 13.7 13.0 - 17.5 g/dL [facility] Comment:Testing performed by : [facility], [address] [place] [address] Hct 40.6 38.9 - 50.3 % [facility] Comment:Testing performed by : [facility], [address] [place], [place] [phone] Plt 169 150 - 400 K/cumm [facility] Comment:Testing performed by : [facility], [address] [place] [address] MPV 7.5 6.8 - 10.4 fL [facility] Comment:Testing performed by : [facility], [address] [place] [address] RBC 4.37 4.30 - 5.80 M/cumm [facility] Comment:Testing performed by : [facility], [address] [place] [address] MCV 92.7 81.3 - 96.4 fL [facility] Comment:Testing performed by : [facility], [address] [place] [address] MCH 31.3 27.1 - 33.3 pg [facility] Comment:Testing performed by : [facility], [address] [place] [address] MCHC 33.8 32.3 - 35.7 g/dL [facility] Comment:Testing performed by : [facility], [address] [place] [address] RDW CV 16.5(H) 11.1 - 14.9 % [facility] Comment:Testing performed by : [facility], [address] [place] [address] NRBC abs 0.00 0.00 - 0.01 K/cumm [facility] Comment:Testing performed by : [facility], [address] [place] [address] Blood 08/06/2024 7:4 3 AM CHARTER DRIVER 08/06/2024 7:51 AM CHARTER DRIVER Hermelindo Butler MD LAB BLOOD ORDER ELANA Final Result Performing Organization Address City/State/[facility] Co de Phone Number [facility] [place] [place] [address] * (ABNORMAL) PSA diagnostic (08/06/2024 7:43 AM CHARTER DRIVER) PSA-Total 6.28(H) <=6.20 ng/mL Comment: Interpretive Data [...] last revised 21. Blood 08/06/2024 7:43 AM CHARTER DRIVER 08/06/2024 7:52 AM CHARTER DRIVER Hermelindo Butler MD LAB BLOOD ORDER ELANA Final Result Performing Organization Address [facility] Co de Phone Number [facility] [place] [employer] [place] [address] * Lactate dehydrogenase (LD) (08/06/2024 7:43 AM CHARTER DRIVER) Lactate dehydrogenase (LDH) 161 100 - 250 Units/L Blood 08/06/2024 7:43 AM CHARTER DRIVER 08/06/2024 7:52 AM CHARTER DRIVER Hermelindo Butler MD LAB BLOOD ORDER ELANA Final Result Performing Organization Address City/[facility] Co de Phone Number [facility] [place] [address] * (ABNORMAL) Lipid panel (08/06/2024 7:43 AM CHARTER DRIVER) Cholesterol 128 30 - 199 mg/dL Comment: [...] revised on 2018. Triglycerides 149 <=149 mg/dL [facility] Comment: Interpretive Data Ages < [...] revised on 2018. HDL 38(L) >=40 mg/dL [facility] Comment: Interpretive Data Ages < [...] on 2018. LDL, calculated 64 <=129 mg/dL [facility] Comment: Interpretive Data Ages < or = 19 years Acceptable: <110 mg/dL Borderline high: 110-129 mg/dL High: >or= 130 mg/dL Ages > or = 20 years Optimal: <100 mg/dL Near optimal: 100-129 mg/dL Borderline high: 130-159 mg/dL High: >160 mg/dL Calculated using the Smith LDL-C estimating equation. This equation was implemented [...] revised on 2024. Non-HDL Cholesterol 90 mg/dL [facility] Comment: Interpretive Data Ages < [...] last revised on 2018. Chol/HDL ratio 3 [facility] Blood 08/06/2024 7:43 AM CHARTER DRIVER 08/06/2024 7:52 AM CHARTER DRIVER Hermelindo Butler MD LAB BLOOD ORDER ELANA Final Result [facility] [place] [address] * (ABNORMAL) Comprehensive metabolic panel (08/06/2024 7:43 AM CHARTER DRIVER) Sodium 145 135 - 145 mmol/L Potassium, pl 4.2 3.3 - 4.9 mmol/L [facility] Chloride 108 97 - 110 mmol/L [facility] CO2 30 22 - 32 mmol/L [facility] Anion gap 7 2 - 15 mmol/L [facility] BUN 51(H) 6 - 25 mg/dL [facility] Creatinine 2.21(H) 0.80 - 1.30 mg/dL [facility] Glucose 113 70 - 199 mg/dL [facility] Comment: Interpretive Data Fasting glucose [...] 2022. Calcium 9.2 8.5 - 10.3 mg/dL [facility] Bilirubin, total 0.5 0.1 - 1.2 mg/dL [facility] Protein, pl 6.2(L) 6.5 - 8.5 g/dL [facility] Albumin 4.1 3.5 - 5.0 g/dL [facility] Alk phos 61 40 - 130 Units/L [facility] ALT 15 7 - 55 Units/L [facility] AST 16 10 - 50 Units/L [facility] Blood 08/06/2024 7:43 AM CHARTER DRIVER 08/06/2024 7:52 AM CHARTER DRIVER Hermelindo Butler MD LAB BLOOD ORDER ELANA Final Result [facility] [place] [address] * aPTT (08/03/2024 9:21 AM CHARTER DRIVER) [facility] aPTT 31 28 - 38 sec Comment: Interpretive Data Heparin therapeutic range: 66.0 - 100.0 seconds. Range based on correlation with therapeutic heparin activity range of 0.3 - 0.7 Units/mL. Current interpretive data was last revised on 2023. Blood 08/03/2024 9:21 AM CHARTER DRIVER 08/03/2024 9:47 AM CHARTER DRIVER Hermelindo Butler MD LAB BLOOD ORDER ELANA Final Result Performing Organization Address City/[facility] Co de Phone Number [facility] [place] [employer] [place] [address] * Protime-INR (08/03/2024 9:21 AM CHARTER DRIVER) Pathologist [facility] PT 11.5 9.7 - 13.0 sec INR 1.06 0.90 - 1.20 [facility] Comment: Interpretive data Oral anticoagulant therapeutic ranges: Venous thromboembolism prophylaxis or treatment: 2.0-3.0 CARDIOLOGY Standard range: 2.0-3.0 High-intensity range: 2.5-3.5 Refer to indication-specific guidelines for appropriate target ranges for prosthetic heart valve replacement. Current interpretive data was last revised on 2019. Blood 08/03/2024 9:21 AM CHARTER DRIVER 08/03/2024 9:47 AM CHARTER DRIVER Hermelindo Butler MD LAB BLOOD ORDER ELANA Final Result Performing Organization Address [facility] de Phone Number [facility] [place] [employer] [place] [address] * Immunotyping, serum with interpretation (08/03/2024 7:40 AM CHARTER DRIVER) Pathologist [facility] Immunosubtraction Please see comment Comment: NO PARAPROTEIN DETECTED Reviewed and signed by Hermelindo Mcnulty MD 08/04/2024 Blood 08/03/2024 7:40 AM CHARTER DRIVER 08/03/2024 8:24 AM CHARTER DRIVER Hermelindo Butler MD LAB BLOOD ORDER ELANA Final Result Performing Organization Address City/[facility] Co de Phone Number [facility] [place] [employer] [place] [address] * (ABNORMAL) eGFR (08/03/2024 7:40 AM CHARTER DRIVER) Pathologist [facility] eGFR 37(L) >=60 mL/min/1. 73 m2 Comment: [...] last reviewed 2021. Blood 08/03/2024 7:40 AM CHARTER DRIVER 08/03/2024 7:49 AM CHARTER DRIVER Hermelindo Butler MD LAB BLOOD ORDER ELANA Final Result [facility] [place] [address] * (ABNORMAL) Differential, auto (08/03/2024 7:40 AM CHARTER DRIVER) [facility] Neutrophil abs 5.6 1.5 - 6.5 K/cumm Comment:Testing performed by : [facility], [address] [place] [phone] Lymphocyte abs 0.9 0.8 - 3.3 K/cumm MT SUAREZ Comment:Testing performed by : [facility], [address] [place] [phone] Monocyte abs 0.6 0.2 - 0.8 K/cumm MT SUAREZ Comment:Testing performed by : [facility], [address] [place] [phone] Eosinophil abs 0.8(H) 0.0 - 0.5 K/cumm [facility] Comment:Testing performed by : [facility], [address] [place] [phone] Basophil abs 0.0 0.0 - 0.1 K/cumm [facility] Comment:Testing performed by : [facility], [address] [place] [phone] Neutrophil pct 70.4 % [facility] Comment: Interpretive Data Percent cell count reference ranges are not reported, since discordance with absolute values may lead to misinterpretation of CBC data. Current Interpretive Data was last revised on 2017. Testing performed by: [facility], [address] [place] [phone] Lymphocyte pct 11.2 % [facility] Comment: Interpretive Data Percent cell count reference ranges are not reported, since discordance with absolute values may lead to misinterpretation of CBC data. Current Interpretive Data was last revised on 2017. Testing performed by: [facility], [address] [place] [phone] Monocyte pct 7.7 % [facility] Comment: Interpretive Data Percent cell count reference ranges are not reported, since discordance with absolute values may lead to misinterpretation of CBC data. Current Interpretive Data was last revised on 2017. Testing performed by: [facility], [address] [place] [phone] Eosinophil pct 10.1 % [facility] Comment: Interpretive Data Percent cell count reference ranges are not reported, since discordance with absolute values may lead to misinterpretation of CBC data. Current Interpretive Data was last revised on 2017. Testing performed by: [facility], [address] [place] [phone] Basophil pct 0.6 % [facility] Comment: Interpretive Data Percent cell count reference ranges are not reported, since discordance with absolute values may lead to misinterpretation of CBC data. Current Interpretive Data was last revised on 2017. Testing performed by: [facility], [address] [place] [phone] Blood 08/03/2024 7:40 AM CHARTER DRIVER 08/03/2024 7:47 AM CHARTER DRIVER Hermelindo Butler MD LAB BLOOD ORDER ELANA Final Result [facility] [place] [address] * (ABNORMAL) Immunoglobulin free light chains (08/03/2024 7:40 AM CHARTER DRIVER) [place]/Lambda ratio [facility] See Comment 0.26 - 1.65 Comment: Unable to calculate exact result. Interpretive Data The Binding Site FreeLite assay procedure was used. Results from different manufacturers or methods may not be comparable. Serial testing should be performed using the same methods and instrumentation. Current Interpretive Data was last revised on 2023. [place] free light chain [facility] <0.06(L) 0.33 - 1.94 mg/dL [facility] Comment: Interpretive Data The Binding Site FreeLite assay procedure was used. Results from different manufacturers or methods may not be comparable. Serial testing should be performed using the same methods and instrumentation. Current Interpretive Data was last revised on 2023. Lambda free light chain [facility] <0.13(L) 0.57 - 2.63 mg/dL [facility] Comment: Interpretive Data The Binding Site FreeLite assay procedure was used. Results from different manufacturers or methods may not be comparable. Serial testing should be performed using the same methods and instrumentation. Current Interpretive Data was last revised on 2023. Blood 08/03/2024 7:40 AM CHARTER DRIVER 08/03/2024 8:24 AM CHARTER DRIVER Hermelindo Butler MD LAB BLOOD ORDER ELANA Final Result MT [facility] [place] [address] * (ABNORMAL) CBC with auto differential (08/03/2024 7:40 AM CHARTER DRIVER) WBC 7.9 3.8 - 9.9 K/cumm Comment:Testing performed by : [facility], [address] [place] [address] Hgb 13.7 13.0 - 17.5 g/dL [facility] Comment:Testing performed by : [facility], [address] [place] [address] Hct 41.5 38.9 - 50.3 % [facility] Comment:Testing performed by : [facility], [address] [place] [address] Plt 163 150 - 400 K/cumm [facility] Comment:Testing performed by : [facility], [address] [place] [address] MPV 7.8 6.8 - 10.4 fL [facility] Comment:Testing performed by : [facility], [address] [place] [address] RBC 4.50 4.30 - 5.80 M/cumm [facility] Comment:Testing performed by : [facility], [address] [place] [address] MCV 92.1 81.3 - 96.4 fL [facility] Comment:Testing performed by : [facility], [address] [place] [address] MCH 30.4 27.1 - 33.3 pg [facility] Comment:Testing performed by : [facility], [address] [place] [address] MCHC 33.0 32.3 - 35.7 g/dL [facility] Comment:Testing performed by : [facility], [address] [place] [address] RDW CV 16.6(H) 11.1 - 14.9 % [facility] Comment:Testing performed by : [facility], [address] [place] [phone] NRBC abs 0.00 0.00 - 0.01 K/cumm [facility] Comment:Testing performed by : [facility], [address] [place] [phone] Blood 08/03/2024 7:40 AM CHARTER DRIVER 08/03/2024 7:47 AM CHARTER DRIVER Hermelindo Butler MD LAB BLOOD ORDER ELANA Final Result Performing Organization Address City/[facility]/ZIP Co de Phone Number [facility] [place] [address] * (ABNORMAL) Protein electrophoresis with reflex, serum with interpretation (08/03/2024 7:40 AM CHARTER DRIVER) Pathologist [facility] Protein, sr 5.7(L) 6.2 - 8.2 g/dL Albumin 3.8 3.2 - 5.0 g/dL [facility] Alpha-1 globulin 0.3 0.2 - 0.4 g/dL [facility] Alpha-2 globulin 0.6 0.5 - 1.0 g/dL [facility] Beta-1 globulin 0.4 0.3 - 0.6 g/dL [facility] Beta-2 globulin 0.3 0.2 - 0.6 g/dL [facility] Gamma globulin 0.2(L) 0.5 - 1.7 g/dL [facility] SPEP interp Please see comment [facility] Comment: No apparent monoclonal peak Decreased gamma globulins Electrophoretic pattern appears similar to previous sample 07/14/24 *See immunotyping for further information Reviewed and signed by Hermelindo Mcnulty MD 08/04/2024 Blood 08/03/2024 7:40 AM CHARTER DRIVER 08/03/2024 8:24 AM CHARTER DRIVER Hermelindo Butler MD LAB BLOOD ORDER ELANA Final Result Performing Organization Address City/[facility]/ZIP Co de Phone Number [facility] [place] [address] * Magnesium (08/03/2024 7:40 AM CHARTER DRIVER) Pathologist [facility] Magnesium 2.2 1.4 - 2.5 mg/dL Blood 08/03/2024 7:40 AM CHARTER DRIVER 08/03/2024 9:36 AM CHARTER DRIVER Hermelindo Butler MD LAB BLOOD ORDER ELANA Final Result Performing Organization Address [facility] de Phone Number [facility] [place] [address] * Lactate dehydrogenase (LD) (08/03/2024 7:40 AM CHARTER DRIVER) [facility] Lactate dehydrogenase (LDH) 172 100 - 250 Units/L Blood 08/03/2024 7:40 AM CHARTER DRIVER 08/03/2024 7:49 AM CHARTER DRIVER Hermelindo Butler MD LAB BLOOD ORDER ELANA Final Result Performing Organization Address [facility] Phone Number [facility] [place] [address] * (ABNORMAL) Hemoglobin A1c (08/03/2024 7:40 AM CHARTER DRIVER) [facility] Hgb A1C 5.8(H) 4.0 - 5.6 % Estimated Average Glucose 120 mg/dL [facility] Comment: The ADA recommends reporting an estimated Average Glucose (eAG) with all Hemoglobin A1c results using the equation derived from a study of 507 normal and diabetic adults. Minority populations were underrepresented and children were not included. (Diabetes Care 2020; 43(S1): S66-S76). The eAG is not equivalent to a fasting glucose. Blood 08/03/2024 7:40 AM CHARTER DRIVER 08/03/2024 7:49 AM CHARTER DRIVER Lyndsey Fagan NP LAB BLOOD ORDERABLES Angeles l Result Performing Organization Address City/[facility]/ZIP Co de Phone Number [facility] [place] [address] * Gamma GT (08/03/2024 7:40 AM CHARTER DRIVER) [facility] GGT 23 10 - 50 Units/L Blood 08/03/2024 7:40 AM CHARTER DRIVER 08/03/2024 9:36 AM CHARTER DRIVER Hermelindo Butler MD LAB BLOOD ORDER ELANA Final Result Performing Organization Address [facility] de Phone Number [facility] [place] [address] * (ABNORMAL) IgA (08/03/2024 7:40 AM CHARTER DRIVER) [facility] Immunoglobulin A <50(L) 70 - 400 mg/dL Blood 08/03/2024 7:40 AM CHARTER DRIVER 08/03/2024 8:09 AM CHARTER DRIVER Hermelindo Butler MD LAB BLOOD ORDER ELANA Final Result Performing Organization Address [facility] de Phone Number [facility] [place] [address] * (ABNORMAL) IgM (08/03/2024 7:40 AM CHARTER DRIVER) [facility] Immunoglobulin M <25(L) 40 - 230 mg/dL Blood 08/03/2024 7:40 AM CHARTER DRIVER 08/03/2024 8:09 AM CHARTER DRIVER Hermelindo Butler MD LAB BLOOD ORDER ELANA Final Result Performing Organization Address [facility] Co de Phone Number [facility] [place] [address] * (ABNORMAL) IgG (08/03/2024 7:40 AM CHARTER DRIVER) [facility] Immunoglobulin G <300(L) 700 - 1,600 mg/dL Blood 08/03/2024 7:40 AM CHARTER DRIVER 08/03/2024 8:09 AM CHARTER DRIVER Hermelindo Butler MD LAB BLOOD ORDER ELANA Final Result [facility] [place] [address] * (ABNORMAL) Comprehensive metabolic panel (08/03/2024 7:40 AM CHARTER DRIVER) Pathologist [facility] Sodium 141 135 - 145 mmol/L Potassium, pl 4.0 3.3 - 4.9 mmol/L [facility] Chloride 104 97 - 110 mmol/L [facility] CO2 30 22 - 32 mmol/L [facility] Anion gap 7 2 - 15 mmol/L [facility] BUN 47(H) 6 - 25 mg/dL [facility] Creatinine 1.92(H) 0.80 - 1.30 mg/dL [facility] Glucose 116 70 - 199 mg/dL [facility] Comment: Interpretive Data Fasting glucose [...] 2022. Calcium 9.2 8.5 - 10.3 mg/dL [facility] Bilirubin, total 0.7 0.1 - 1.2 mg/dL [facility] Protein, pl 6.2(L) 6.5 - 8.5 g/dL [facility] Albumin 3.9 3.5 - 5.0 g/dL [facility] Alk phos 63 40 - 130 Units/L [facility] ALT 15 7 - 55 Units/L [facility] AST 17 10 - 50 Units/L [facility] Blood 08/03/2024 7:40 AM CHARTER DRIVER 08/03/2024 7:49 AM CHARTER DRIVER Hermelindo Butler MD LAB BLOOD ORDER ELANA Final Result Performing Organization Address City/[facility]/ZIP Co de Phone Number [facility] [place] [address] * (ABNORMAL) Urinalysis reflex to microscopic and culture Urine, clean voided (08/03/2024 7:30 AM CHARTER DRIVER) Color, ur Straw Yellow Clarity, ur Clear Clear [facility] Specific gravity, ur 1.012 1.003 - 1.030 [facility] pH, urine 5.5 [facility] Comment: Interpretive Data U rine pH is affected by diet, medications, systemic acid-base disturbances, and renal tubular function. pH may affect urinary stone formation. For example, urine pH below 6.0 may help reduce the tendency for calcium phosphate stones and pH greater than 6.0 may reduce the tendency for uric acid stone formation. Source: [facility] Current Interpretive Data was last revised on 2017 Protein, ur ql Negative Negative [facility] Glucose, ur ql Negative Negative [facility] Ketones, ur Negative Negative [facility] Bilirubin, ur Negative Negative [facility] Blood, ur 2+(A) Negative [facility] Urobilinogen, ur <2.0 <2.0 mg/dL [facility] Nitrite, ur Negative Negative [facility] Leukocyte esterase, ur Negative [facility] UA reflex comment Reflex to microscopic UA will be performed. [facility] Urine, clean voided 08/03/2024 7:30 AM CHARTER DRIVER 08/03/2024 7:30 AM CHARTER DRIVER Lyndsey Fagan NP LAB MICROBIOLOGY - GENERA L ORDERABLES Final Result Performing Organization Address [facility]/ZIP Co de Phone Number [facility] [place] [address] * (ABNORMAL) Urinalysis, microscopic only (08/03/2024 7:30 AM CHARTER DRIVER) WBC, ur 6-10(A) 0 - 5 /HPF RBC, ur 11-20(A) 0 - 2 /HPF [facility] Epithelial cells, squamous, ur 1-5 0 - 5 /HPF [facility] Bacteria, ur Trace(A) [facility] Culture Reflex Comment Reflex conditions for urine culture (WBC >10) not met. [facility] Urine, clean voided 08/03/2024 7:30 AM CHARTER DRIVER 08/03/2024 7:30 AM CHARTER DRIVER Lyndsey Fagan NP LAB URINE ORDERABLES Angeles l Result Performing Organization Address City/[facility]/[place] [address] * Urine culture Urine, clean voided (08/03/2024 7:30 AM CHARTER DRIVER) Report Final Report: No growth Urine, clean voided 08/03/2024 7:30 AM CHARTER DRIVER 08/03/2024 9:59 AM CHARTER DRIVER Narrative [facility] - 08/04/2024 11:14 AM CHARTER DRIVER Testing performed by [facility] ([phone]) Hermelindo Butler MD LAB MICROBIOLOG Y - GENERAL ORDERABLES Final Result Performing Organization Address City/[facility]/[place] [address] * Immunotyping, serum with interpretation (07/13/2024 7:40 AM CHARTER DRIVER) Immunosubtraction Please see comment Comment: NO PARAPROTEIN DETECTED Reviewed and signed by Rufino Huff MD, PhD 07/14/2024 Blood 07/13/2024 7:40 AM CHARTER DRIVER 07/13/2024 8:42 AM CHARTER DRIVER Hermelindo Butler MD LAB BLOOD ORDER ELANA Final Result Performing Organization Address City/[facility] Co de Phone Number MT [facility] [place] [address] * (ABNORMAL) eGFR (07/13/2024 7:40 AM CHARTER DRIVER) Pathologist [facility] eGFR 57(L) >=60 mL/min/1. 73 m2 Comment: [...] last reviewed 2021. Blood 07/13/2024 7:40 AM CHARTER DRIVER 07/13/2024 7:47 AM CHARTER DRIVER Hermelindo Butler MD LAB BLOOD ORDER ELANA Final Result [facility] [place] [address] * Differential, auto (07/13/2024 7:40 AM CHARTER DRIVER) Neutrophil abs 5.4 1.5 - 6.5 K/cumm Comment:Testing performed by : [facility], [address] [place] [phone] Lymphocyte abs 0.9 0.8 - 3.3 K/cumm [facility] Comment:Testing performed by : [facility], [address] [place] [phone] Monocyte abs 0.5 0.2 - 0.8 K/cumm [facility] Comment:Testing performed by : [facility], [address] [place] [phone] Eosinophil abs 0.5 0.0 - 0.5 K/cumm [facility] Comment:Testing performed by : [facility], [address] [place] [phone] Basophil abs 0.0 0.0 - 0.1 K/cumm [facility] Comment:Testing performed by : [facility], [address] [place] [address] Neutrophil pct 73.6 % [facility] Comment: Interpretive Data Percent cell count reference ranges are not reported, since discordance with absolute values may lead to misinterpretation of CBC data. Current Interpretive Data was last revised on 2017. Testing performed by: [facility], [address] [place] [phone] Lymphocyte pct 12.0 % [facility] Comment: Interpretive Data Percent cell count reference ranges are not reported, since discordance with absolute values may lead to misinterpretation of CBC data. Current Interpretive Data was last revised on 2017. Testing performed by: [facility], [address] [place] [phone] Monocyte pct 7.4 % [facility] Comment: Interpretive Data Percent cell count reference ranges are not reported, since discordance with absolute values may lead to misinterpretation of CBC data. Current Interpretive Data was last revised on 2017. Testing performed by: [facility], [address] [place] [phone] Eosinophil pct 6.5 % [facility] Comment: Interpretive Data Percent cell count reference ranges are not reported, since discordance with absolute values may lead to misinterpretation of CBC data. Current Interpretive Data was last revised on 2017. Testing performed by: [facility], [address] [place] [address] Basophil pct 0.5 % [facility] Comment: Interpretive Data Percent cell count reference ranges are not reported, since discordance with absolute values may lead to misinterpretation of CBC data. Current Interpretive Data was last revised on 2017. Testing performed by: [facility], [address] [place] [phone] Blood 07/13/2024 7:40 AM CHARTER DRIVER 07/13/2024 7:46 AM CHARTER DRIVER Hermelindo Butler MD LAB BLOOD ORDER ELANA Final Result MT SUAREZ [facility] [place] [address] * (ABNORMAL) Immunoglobulin free light chains (07/13/2024 7:40 AM CHARTER DRIVER) [place]/Lambda ratio [facility] See Comment 0.26 - 1.65 Comment: Unable to calculate exact result. Interpretive Data The Binding Site FreeLite assay procedure was used. Results from different manufacturers or methods may not be comparable. Serial testing should be performed using the same methods and instrumentation. Current Interpretive Data was last revised on 2023. [place] free light chain [facility] <0.06(L) 0.33 - [...] revised on 2023. Blood 07/13/2024 7:40 AM CHARTER DRIVER 07/13/2024 8:42 AM CHARTER DRIVER Hermelindo Butler MD LAB BLOOD ORDER ELANA Final Result MT SUAREZ [facility] [place] [address] * (ABNORMAL) CBC with auto differential (07/13/2024 7:40 AM CHARTER DRIVER) WBC 7.4 3.8 - 9.9 K/cumm Comment:Testing performed by : [facility], [address] [place] [address] Hgb 14.4 13.0 - 17.5 g/dL MT SUAREZ Comment:Testing performed by : [facility], [address] [place] [address] Hct 44.1 38.9 - 50.3 % MT SUAREZ Comment:Testing performed by : [facility], [address] [place] [address] Plt 174 150 - 400 K/cumm MT SUAREZ Comment:Testing performed by : [facility], [address] [place] [address] MPV 7.5 6.8 - 10.4 fL MT SUAREZ Comment:Testing performed by : [facility], [address] [place] [address] RBC 4.75 4.30 - 5.80 M/cumm MT SUAREZ Comment:Testing performed by : [facility], [address] [place] [address] MCV 92.8 81.3 - 96.4 fL CERFRANK BJ Comment:Testing performed by : [facility], [address] [place] [address] MCH 30.2 27.1 - 33.3 pg CERFRANK BJ Comment:Testing performed by : [facility], [address] [place] [address] MCHC 32.6 32.3 - 35.7 g/dL MT [facility] Comment:Testing performed by : [facility], [address] [place] [id number] RDW CV 16.2(H) 11.1 - 14.9 % [facility] Comment:Testing performed by : [facility], [address] [place] [id number] NRBC abs 0.00 0.00 - 0.01 K/cumm MT [facility] Comment:Testing performed by : [facility], [address] [place] [phone] Blood 07/13/2024 7:40 AM CHARTER DRIVER 07/13/2024 7:46 AM CHARTER DRIVER Hermelindo Butler MD LAB BLOOD ORDER ELANA Final Result [facility] [place] [address] * (ABNORMAL) Protein electrophoresis with reflex, serum with interpretation (07/13/2024 7:40 AM CHARTER DRIVER) Protein, sr 5.7(L) 6.2 - 8.2 g/dL Albumin 3.7 3.2 - 5.0 g/dL [facility] Alpha-1 globulin 0.3 0.2 - 0.4 g/dL [facility] Alpha-2 globulin 0.6 0.5 - 1.0 g/dL [facility] Beta-1 globulin 0.4 0.3 - 0.6 g/dL [facility] Beta-2 globulin 0.3 0.2 - 0.6 g/dL [facility] Gamma globulin 0.3(L) 0.5 - 1.7 g/dL [facility] SPEP interp Please see comment [facility] Comment: No apparent monoclonal peak Decreased gamma globulins Electrophoretic pattern appears similar to previous sample 06/23/24 See immunotyping for further information Reviewed and signed by Rufino Huff MD, PhD 07/14/2024 Blood 07/13/2024 7:40 AM CHARTER DRIVER 07/13/2024 8:42 AM CHARTER DRIVER us Hermelindo Butler MD LAB BLOOD ORDER ELANA Final Result Performing Organization Address [facility] de Phone Number [facility] [place] [address] * Magnesium (07/13/2024 7:40 AM CHARTER DRIVER) Magnesium 2.2 1.4 - 2.5 mg/dL Blood 07/13/2024 7:40 AM CHARTER DRIVER 07/13/2024 7:47 AM CHARTER DRIVER us Hermelindo Butler MD LAB BLOOD ORDER ELANA Final Result Performing Organization Address [facility] de Phone Number [facility] [place] [address] * Lactate dehydrogenase (LD) (07/13/2024 7:40 AM CHARTER DRIVER) Lactate dehydrogenase (LDH) 152 100 - 250 Units/L Blood 07/13/2024 7:40 AM CHARTER DRIVER 07/13/2024 7:47 AM CHARTER DRIVER us Hermelindo Butler MD LAB BLOOD ORDER ELANA Final Result Performing Organization Address [facility] de Phone Number [facility] [place] [address] * Gamma GT (07/13/2024 7:40 AM CHARTER DRIVER) GGT 27 10 - 50 Units/L Blood 07/13/2024 7:40 AM CHARTER DRIVER 07/13/2024 7:47 AM CHARTER DRIVER us Hermelindo Butler MD LAB BLOOD ORDER ELANA Final Result Performing Organization Address [facility] Co de Phone Number [facility] [place] [address] * (ABNORMAL) IgA (07/13/2024 7:40 AM CHARTER DRIVER) Pathologist [facility] Immunoglobulin A <50(L) 70 - 400 mg/dL Blood 07/13/2024 7:40 AM CHARTER DRIVER 07/13/2024 7:59 AM CHARTER DRIVER Hermelindo Butler MD LAB BLOOD ORDER ELANA Final Result Performing Organization Address [facility] Co de Phone Number [facility] [place] [address] * (ABNORMAL) IgM (07/13/2024 7:40 AM CHARTER DRIVER) Pathologist [facility] Immunoglobulin M <25(L) 40 - 230 mg/dL Blood 07/13/2024 7:40 AM CHARTER DRIVER 07/13/2024 7:59 AM CHARTER DRIVER Hermelindo Butler MD LAB BLOOD ORDER ELANA Final Result Performing Organization Address [facility] Co de Phone Number [facility] [place] [address] * (ABNORMAL) IgG (07/13/2024 7:40 AM CHARTER DRIVER) Pathologist [facility] Immunoglobulin G <300(L) 700 - 1,600 mg/dL Blood 07/13/2024 7:40 AM CHARTER DRIVER 07/13/2024 7:59 AM CHARTER DRIVER Hermelindo Butler MD LAB BLOOD ORDER ELANA Final Result Performing Organization Address [facility] Co de Phone Number [facility] [place] [address] * (ABNORMAL) Comprehensive metabolic panel (07/13/2024 7:40 AM CHARTER DRIVER) Sodium 144 135 - 145 mmol/L Potassium, pl 4.2 3.3 - 4.9 mmol/L [facility] Chloride 107 97 - 110 mmol/L [facility] CO2 33(H) 22 - 32 mmol/L [facility] Anion gap 4 2 - 15 mmol/L [facility] BUN 29(H) 6 - 25 mg/dL [facility] Creatinine 1.34(H) 0.80 - 1.30 mg/dL [facility] Glucose 125 70 - 199 mg/dL [facility] Comment: Interpretive Data Fasting glucose [...] 2022. Calcium 9.4 8.5 - 10.3 mg/dL [facility] Bilirubin, total 0.7 0.1 - 1.2 mg/dL [facility] Protein, pl 6.2(L) 6.5 - 8.5 g/dL [facility] Albumin 4.1 3.5 - 5.0 g/dL [facility] Alk phos 65 40 - 130 Units/L [facility] ALT 18 7 - 55 Units/L [facility] AST 16 10 - 50 Units/L [facility] Blood 07/13/2024 7:40 AM CHARTER DRIVER 07/13/2024 7:47 AM CHARTER DRIVER Hermelindo Butler MD LAB BLOOD ORDER ELANA Final Result [facility] [place] [address] * aPTT (07/13/2024 7:24 AM CHARTER DRIVER) Pathologist [facility] aPTT 28 28 - 38 sec Comment: Interpretive Data Heparin therapeutic range: 66.0 - 100.0 seconds. Range based on correlation with therapeutic heparin activity range of 0.3 - 0.7 Units/mL. Current interpretive data was last revised on 2023. Blood 07/13/2024 7:24 AM CHARTER DRIVER 07/13/2024 7:59 AM CHARTER DRIVER Hermelindo Butler MD LAB BLOOD ORDER ELANA Final Result Performing Organization Address [facility] de Phone Number [facility] [place] [address] * Protime-INR (07/13/2024 7:24 AM CHARTER DRIVER) [facility] PT 11.5 9.7 - 13.0 sec INR 1.06 0.90 - 1.20 [facility] Comment: Interpretive data Oral anticoagulant therapeutic ranges: Venous thromboembolism prophylaxis or treatment: 2.0-3.0 CARDIOLOGY Standard range: 2.0-3.0 High-intensity range: 2.5-3.5 Refer to indication-specific guidelines for appropriate target ranges for prosthetic heart valve replacement. Current interpretive data was last revised on 2019. Blood 07/13/2024 7:24 AM CHARTER DRIVER 07/13/2024 7:59 AM CHARTER DRIVER Hermelindo Butler MD LAB BLOOD ORDER ELANA Final Result Performing Organization Address [facility] de Phone Number [facility] [place] [place] [address] * Hepatitis C antibody (10/16/2021 9:50 AM CDT) Pathologist [facility] Hep C Ab Nonreactive Nonreactive [facility] Comment:Antibodies to HCV no t detected. Does NOT exclude the possibility of recent exposure to HCV. Blood 10/16/2021 9:50 AM CDT 10/16/2021 11:22 AM CDT Hermelindo dupree MD LAB MICROBIOLOGY - GENERAL ORDERABLES Edited Result - Final MT [facility] [place] [address] from Last 3 Months or Most Recently Relevant to Health Maintenance Insurance [facility]ICARE [facility] Address: [address] [address] [place] [address] [facility] SENIOR SUPPLEMENT MEDICARE AET SENIOR SUPPLEMENT MEDICARE AET SENIOR SUPPLEMENT Advance Directives For more information, please contact: [phone] Documents on File Type Date Recorded Patient Filter Tank Tender Expl anation ADVANCE DIRECTIVE 11/29/2017 11:05 AM FOX R OF AGRICULTURAL TECHNICIAN ADVANCE DIRECTIVE 11/12/2017 3:59 PM POWER OF AGRICULTURAL TECHNICIAN * Full Code (Latest Code Status [...] 2:28 PM 05/31/2021 2:39 PM Care Teams Manager Statistical Relationship Specialty Start Date End Date Jatin Gamble MD [address] [place] [address] PCP - General 10/07/16 Hermelindo Butler MD [address] [place] [address] [facility] 12/02/17 Roberto Rojo MD [facility] [address] [place] [address] [facility] Hemat[facility] and Oncology 12/02/17 Jatin Gamble MD [address] [place] [address] Referring Physician Internal Medicine 12/02/17 Lyndsey Fagan WAREHOUSE FOREMAN [address] [place] [address] Nurse Practitioner Medical Oncology 08/03/20 Erlin Servin MD [address] [place] [address] Consulting Physician Otolaryngology 10/04/22 [place] [address] [place] [address] Consulting Physician Urology 05/28/23 Salvador Norris MD [address] [place] [address] Consulting Physician Infectious Diseases 09/15/24 Miscellaneous, Not In File 09/15/24
--- OUTSIDE RECORDS SUMMARY | 2024-10-05 13:03 | XMS_ITS | Encounter Summary ---
Author Organization [facility] Healthcare Address [address] [place] [address] Care Team Providers Care Event Manager Name Role Phone Jatin Gamble MD Primary Care Provider [phone] Hermelindo Butler MD Unavailable Roberto Rojo MD Unavailable Jatin Gamble MD Unavailable Garry Dukes MD Unavailable [phone] Lyndsey Fagan NP Unavailable Erlin Servin MD Unavailable Julian Valdez MD Unavailable Salvador Norris MD Unavailable Miscellaneous, Not In File Unavailable Unava ilable Encounter Details Date Type Department Care Team (Late st Contact Info) Description 04/29/2022 Community Orders [facility] EpicCare Link Jatin Gamble MD [address] [place] [address] Elevated prostate specific antigen (PSA) (Primary Dx) Social History Tobacco Use Types Packs/Day Years Used Date Smoking Tobacco: Never Smokeless Tobacco: Never Alcohol Use Standard Drinks/Week Comments No 0 (1 standard drink = 0.6 oz pur e alcohol) Sex and Gender Information Value Date Recorded Sex Assigned at Not on file Legal Sex 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 AIRSET MOLDER Gender Identity Not on file Sexual Orientation [...] documented as of this encounter Care Teams Event Manager Relationship Specialty Start Date End Date Jatin Gamble MD [address] [place] [address] PCP - General 10/07/16 Hermelindo Butler MD [address] [place] [address] [facility] 12/02/17 Roberto Rojo MD [address] [place] [address] [facility] Hematology and Oncology 12/02/17 Jatin Gamble MD [address] [place] [address] Referring Physician Internal Medicine 12/02/17 Garry Dukes MD [address] [place], [place] [id number] Referring Physician Urology 12/02/17 05/27/23 Lyndsey Fagan NP [address] [place] [address] Nurse Practitioner Medical Oncology 08/03/20 Erlin Servin MD [address] [place] [address] Consulting Physician Otolaryngology 10/04/22 [place] [address] [place] [address] Consulting Physician Urology 05/28/23 Salvador Norris MD [address] [place] [address] Consulting Physician Infectious Diseases 09/15/24 Miscellaneous, Not In File 09/15/24 documented as of this encounter
== END 2024-10-05 11:37 | disposition home or self-care (01) ==
LOC: CHSLAB 11:40
PROVIDERS: PCP Internal Medicine; Visit Provider Internal Medicine
DX: R05.9 Cough, unspecified (principal); R50.9 Fever, unspecified; R06.2 Wheezing
CPT/HCPCS: 36415; 71046; 80053; 85027; 87040; 87637; 87651

== ENCOUNTER 2024-10-08 08:15 | Outpatient (CLI) | payer MEDICARE, SELFPAY ==
[2024-10-08 12:50] LABS: Alanine Aminotransferase 22 U/L (16-63); Albumin Level 3.7 g/dL (3.4-5.0); Alkaline Phosphatase 76 U/L (46-116); Anion Gap 8 mmol/L (4-12); Aspartate Amino Transferase 19 U/L (15-37); Bilirubin,Total 0.7 mg/dL (0.00-1.00); Blood Urea Nitrogen 50 mg/dL (7-18); Calcium 8.7 mg/dL (8.5-10.1); Carbon Dioxide 30 mmol/L (21-32); Chloride 105 mmol/L (98-108); Estimated Glomerular Filt Rate 34; Glucose 116 mg/dL (70-99); Osmolality Calculated 310 mOsm/kg (285-295); Potassium 4.2 mmol/L (3.5-5.1); Sodium 143 mmol/L (136-145); Total Protein 6.2 g/dL (6.4-8.2)
--- OUTSIDE RECORDS SUMMARY | 2024-10-09 13:09 | XMS_ITS | Continuity of Care Document ---
Author Organization [employer] [facility] Address [address] [facility] [address] [place] [address] Phone Care Team Providers Care Key Punch Operator Name Role Phone Cesar Vora MD, [...] ER 100 mg tablet,extended release - Active Marion 5 mg-325 mg tablet take 1 tablet [...] Copied on Encounter Office/outpa tient Visit, [facility], [id number] [place] [address] [employer] [address], [place], [place], [id number], [place] tel:[phone] SEC [place] Eyelid infections (chief complaint) Episcleritis of left eyeOther vitreous opacities, bilateralOth er visual disturbances 2 Vielka Cesar. [address] [employer] [facility], [address], [place], [place], [address], [place]. tel:[phone] Specialist: Hermelindo Lopez MD, [address] [facility] [address], [place], [address]. tel:[phone] Provider: Vicky Ray OD, [address] [facility], [place], [address]. tel:[phone] [facility], [address], [place], [place], [id number], [place] tel:[phone] SEC [place] Professional yag pc OS evaluation (chief complaint) Bilateral artificial lens implantOther secondary cataract, left eyeCyst of right eyelidPVD (posterior vitreous detachment), left eyeBilateral ocular hypertension Oct-1 8 Jose R Franco. [address] [facility], [address], [place], [place], [address], [place]. tel:[phone] Referring Provider: Michele Orellana OD A, [address] [place] [address] [facility], [place], [address]. tel:[phone] [facility], [address] [place], [place] [address], [place], [place], [address], [place] tel:[phone] SEC Steven Sifuentes Yag PC Eval (chief complaint) No Information 7 Jellico Cesar. [address] [place], [place] [address], [address], [place], [place], [address], [place]. tel:[phone] Referring Provider: Michele Orellana OD A, [address] [place] [address], [place], [address]. tel:[phone] [employer] [facility], [address], [place], [place], [address], [place] tel:[phone] SEC [place] Petrona Coybienvenidorosalio No Information 7 Vielka Cesar. [facility] [employer], [address], [place], [place], [address], [place]. tel:[phone] [employer] [facility], [facility] [address], [place], [place], [address], [place] tel:[phone] [facility] No Information 5 Vielka Cesar. [facility] [employer], [address], [place], [place], [address], [place]. tel:[phone] Referring Provider: Michele Orellana OD A, [address] [place] [address], [place], [address]. tel:[phone] [employer] [facility], [address] [place] [address] [address], [place], [place], [address], [place] tel:[phone] SEC Steven [address] No Information 5 Vielka Guerrero. [address] [employer] [facility], [address], [place], [place], [address], [place]. tel:[phone] Referring Provider: Michele Acevedo, [address] [facility], [place], [address]. tel:[phone] [facility], [address] [place] [address] [address], [place], [place], [address], [place] tel:[phone] [facility] No Information 5 Vielka Guerrero. [facility] [address] [employer] [facility], [address], [place], [place], [address], [place]. tel:[phone] Referring Provider: Michele Acevedo, [address] [facility], [place], [address]. tel:[phone] [facility], [address] [place] [address] [address], [place], [place], [address], [place] tel:[phone] SEC [address] Cataract Evaluation (chief complaint) No Information 5 Vielka Guerrero. [address] [place] [address] [employer] [facility], [address], [place], [place], [address], [place]. tel:[phone] Referring Provider: Michele Acevedo, [address] [place], [address]. tel:[phone] Family History Family Member Type Diagnosis Age At Onset Mother Problem (finding) diabetes melli tus in first degree relative Mother Problem (finding) glaucoma Payers Payer name Insurance type Covered republican ID Authoriza tion(s) [place] [id number] Aetna Mdcr Supp CI [id number] Social History Type Description Quantity Date Captured [...]
--- OUTSIDE RECORDS SUMMARY | 2024-10-09 13:09 | XMS_ITS | Clinical Summary ---
Author Organization [facility] Address [address] [place] [address] Care Team Providers Care Resident Services Director Name Role Phone Unavailable Primary Care Provider [...]
--- OUTSIDE RECORDS SUMMARY | 2024-10-09 13:09 | XMS_ITS | Encounter Summary ---
Author Organization [facility] Healthcare Address [address] [place] [address] Care Team Providers Care Fuel Buyer Name Role Phone Jatin Gamble MD Primary Care Provider Hermelindo Butler MD Unavailable Roberto Rojo MD Unavailable Jatin Gamble MD Unavailable [phone] Garry Dukes MD Unavailable [phone] Lyndsey Fagan NP Unavailable Erlin Servin MD Unavailable Julian Valdez MD Unavailable Salvador Norris MD Unavailable Miscellaneous, Not In File Unavailable Unava ilable Encounter Details Date Type Department Care Team (Late st Contact Info) Description 11/22/2021 Documentation [facility] Case Management [address] [place] [address] Forrest Epstein RN Social History Tobacco Use Types Packs/Day Years Used Date Smoking Tobacco: Never Smokeless Tobacco: Never Alcohol Use Standard Drinks/Week Comments No 0 (1 standard drink = 0.6 oz pur e alcohol) Sex and Gender Information Value Date Recorded Sex Assigned at Not on file Legal Sex 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 MANIFOLD OPERATOR Gender Identity Not on file Sexual [...] documented as of this encounter Care Teams Fuel Buyer Relationship Specialty Start Date End Date Jatin Gamble MD [address] [place] [address] PCP - General 10/07/16 Hermelindo Butler MD [address] [place] [address] [facility] On[facility] 12/02/17 Roberto Rojo MD [address] [place] [address] [facility] Hemat[facility] and Oncology 12/02/17 Jatin Gamble MD [address] [place] [address] Referring Physician Internal Medicine 12/02/17 Garry Dukes MD [address] [place] [address] Referring Physician Urology 12/02/17 05/27/23 Lyndsey Fagan NP [address] [place] [address] Nurse Practitioner Medical Oncology 08/03/20 Erlin Servin MD [address] [place] [address] Consulting Physician Otolaryngology 10/04/22 [place] [address] [place] [address] Consulting Physician Urology 05/28/23 Salvador Norris MD [address] [place] [address] Consulting Physician Infectious Diseases 09/15/24 Miscellaneous, Not In File 09/15/24 documented as of this encounter
--- OUTSIDE RECORDS SUMMARY | 2024-10-09 13:09 | XMS_ITS | Encounter Summary ---
Author Organization [facility] Address [address] [place] [address] Phone Care Team Providers Care Assault Amphibious Vehicle Officer Name Role Phone Jatin Gamble MD Primary Care Provider Hermelindo Butler MD Unavailable Roberto Rojo MD Unavailable [phone] Jatin Gamble MD Unavailable Garry Dukes MD Unavailable [phone] Lyndsey Fagan NP Unavailable Erlin Servin MD Unavailable [phone] Julian Valdez MD Unavailable Salvador Norris MD [...] on file Legal Sex 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 MATERIAL DISPATCHER Gender Identity Not on file Sexual Orientation [...] documented as of this encounter Care Teams Assault Amphibious Vehicle Officer Relationship Specialty Start Date End Date Jatin Gamble MD [address] [place] [address] PCP - General 10/07/16 Hermelindo Butler MD [address] [place] [address] Medical Oncologist/[facility] Medical Oncology 12/02/17 Roberto Rojo MD [facility] [address] [place] [address] Medical Oncologist/[facility] Hematology and Oncology 12/02/17 Jatin Gamble MD [address] [place] [address] Referring Physician Internal Medicine 12/02/17 Garry Dukes MD [address] [place] [address] Referring Physician Urology 12/02/17 05/27/23 Lyndsey Fagan NP [address] [place] [address] Nurse Practitioner Medical Oncology 08/03/20 Erlin Servin MD [address] [place] [address] Consulting Physician Otolaryngology 10/04/22 [place] [address] [place] [address] Consulting Physician Urology 05/28/23 Salvador Norris MD [address] [place] [address] Consulting Physician Infectious Diseases 09/15/24 Miscellaneous, Not In File 09/15/24 documented as of this encounter
--- OUTSIDE RECORDS SUMMARY | 2024-10-09 13:09 | XMS_ITS ---
Author Organization [facility] Address [address] [place] [address] Care Team Providers Care Dye Reel Operator Helper Name Role Phone Jatin Gamble MD Primary Care Provider Hermelindo Butler MD Unavailable Roberto Rojo MD Unavailable [phone] Jatin Gamble MD Unavailable [phone] Lyndsey Fagan NP Unavailable Erlin Servin MD Unavailable [phone] Julian Valdez MD Unavailable Salvador Norris MD Unavailable Miscellaneous, Not In File Unavailable Unava ilable Active Problems Patient Care Coordination No te Formatting of this note is d ifferent from the original. BMT Inpatient Care Coordination Overview Diagnosis [place] Floor [address] Treatment Plan Clinical Trial [id number] Rahel Reason for Admission JOHN Transplant/IEC Planning [...] Medical Assistants Post-Discharge Follow-Up Living Situation/Distance from [facility] (45 min) Caregiver [...] is a risk of orbital injury and OPHTHALMIC DISPENSER injury which could result in blindness or [...] this. Assessment & Plan (07/09/2022 7:42 PM GAS ENGINE OPERATOR COMPRESSORS): I talked with him quite a bit [...] weeks. Assessment & Plan (05/26/2022 4:16 PM GAS ENGINE OPERATOR COMPRESSORS): He does have pretty significant sinusitis and [...] day. Assessment & Plan (05/26/2022 4:17 PM GAS ENGINE OPERATOR COMPRESSORS): It is very possible that his cough could be due to sinusitis also. Hopefully that will continue to improve as we treat. He understands. Immunocompromised 11/13/2021 Multiple myeloma not having achieved remission 0 10/28/2021 Cancer Staging:Clinical stage from 10/16/2021:RISS Stage II(Rzut-7-qavkpxmzisarq (mg/L): 3.7, Albumin (g/dL): 4.2, ISS: Stage [...] and Dexamethasone in June 2021 Clinical trial [id number] initiated on 10/29/21; C46D1 08/03/24. BMT following [...] he got a TTE on 10/19 at [place] however unclear why not currently in the system - May need to repeat TTE prior to treatment if results unavailable - Continue OI ppx with acyclovir 400mg BID - Begin trial [id number], a Bispecific Antibody Targeting BCMA treatment - [...] he got a TTE on 10/19 at [place] however unclear why not currently in the system - May need to repeat TTE prior to treatment if results unavailable - Continue OI ppx with acyclovir 400mg BID - Begin trial [id number], a Bispecific Antibody Targeting BCMA treatment - [...] BID Assessment & Plan (05/31/2021 10:51 AM GAS ENGINE OPERATOR COMPRESSORS): Continue home pepcid, asx Renal mass 05/30/2021 Assessment & Plan (05/31/2021 10:51 AM GAS ENGINE OPERATOR COMPRESSORS): Admitted for observation after L renal mass [...] 07/17/2023 Assessment & Plan (05/31/2021 10:52 AM GAS ENGINE OPERATOR COMPRESSORS): Follows with oncology on daratumumab monotherapy -counts [...] blood in urine Follow up pathology from [id number] high-grade papillary urothelial carcinoma (grade 2) --follow [...] blood in urine Follow up pathology from [id number]-gjd-gvxqkazn high-grade papillary urothelial carcinoma (grade 2) --follow [...] supplementation Assessment & Plan (05/31/2021 10:51 AM GAS ENGINE OPERATOR COMPRESSORS): Stable on home losartan, nebivolol, triamterene-HCTZ 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/23/2013 Current Treatment and Therapy Plans - INPT/OUTPT - [facility] - MM - [id number].[id number] - Arm B - Dose Expansion Phase - TNB-383B Monotherapy* Plan Start Date:10/29/2021 Plan Provider:Hermelindo Butler MD Linked Problems Multiple myeloma in relapse (HCC) Treatment Medications Current Day (Day 1 , Cycle 49 - Planned for 10/19/2024) INV-[facility] (/TN B-383B.0001) Etentamig (TNB-383B/ABBV-383) IVPB in 50 mL (ANTI-LAG-3)INV-[facility] Etentamig (TNB-383B/ABBV-383) (/TNB-383B.0001)INV-[facility] sodium chloride 0.9 % INV-[facility] Etentamig (TNB-383B/ABBV-383) (IVSS-FREE FORMULATION) (/TNB-383B.2024) 40 mg in sodium chloride 0.9% 30 mL IVPBINV-[facility] sodium chloride 0.9 % flush IVPB 20 [...]
--- OUTSIDE RECORDS SUMMARY | 2024-10-09 13:10 | XMS_ITS | Clinical Summary ---
Author Organization [facility] Address [address] [place] [address] Care Team Providers Care Residential Mental Health Worker Name Role Phone Jatin Gamble MD Primary Care Provider Hermelindo Butler MD Unavailable Roberto Rojo MD Unavailable [phone] Jatin Gamble MD Unavailable [phone] Lyndsey Fagan NP Unavailable Erlin Servin MD Unavailable Julian Valdez MD Unavailable [phone] Salvador Norris MD Unavailable Miscellaneous, Not In [...] Pulmicort 1000 mL 06/03/20 23 025 Discontinued amLODIPine (NORVASC) 10 mg tablet Take 0.5 tablets (5 mg total) by mouth daily 15 tablet 08/28/19 25 025 Discontinued ampicillin 2,000 mg in sodium chloride 0.9% 100 mL IVPBIndications :Blood Stream/Endovasc ular Infection Infuse 2,000 mg into a venous catheter every 6 (six) hours for 30 minutes for 10 days at 200 mL/hr 09/16/19 25 025 Active Problems Patient Care Coordination No te Formatting of this note is d ifferent from the original. BMT Inpatient Care Coordination Overview Diagnosis MM Floor [id number] Treatment Plan Clinical Trial [id number] Ramesh Reason for Admission JOHN Transplant/IEC Planning [...] Medical Assistants Post-Discharge Follow-Up Living Situation/Distance from [place], [place] (45 min) Caregiver Self, Lab/Transfusion Frequency [...] is a risk of orbital injury and LOGISTICS ASSOCIATE injury which could result in blindness or [...] this. Assessment & Plan (07/09/2022 7:42 PM ENVIRONMENTAL ENGINEERING MANAGER): I talked with him quite a [...] weeks. Assessment & Plan (05/26/2022 4:16 PM ENVIRONMENTAL ENGINEERING MANAGER): He does have pretty significant sinusitis [...] day. Assessment & Plan (05/26/2022 4:17 PM ENVIRONMENTAL ENGINEERING MANAGER): It is very possible that his cough could be due to sinusitis also. Hopefully that will continue to improve as we treat. He understands. Immunocompromised 11/13/2021 Multiple myeloma not having achieved remission 0 10/28/2021 Cancer Staging:Clinical stage from 10/16/2021:RISS Stage II(Ywmr-1-jmppyaptcepcw (mg/L): 3.7, Albumin (g/dL): 4.2, ISS: Stage [...] and Dexamethasone in June 2021 Clinical trial [id number] initiated on 10/29/21; C46D1 08/03/24. BMT following [...] he got a TTE on 10/19 at [facility] however unclear why not currently in the system - May need to repeat TTE prior to treatment if results unavailable - Continue OI ppx with acyclovir 400mg BID - Begin trial [id number], a Bispecific Antibody Targeting BCMA treatment - [...] he got a TTE on 10/19 at [facility] however unclear why not currently in the system - May need to repeat TTE prior to treatment if results unavailable - Continue OI ppx with acyclovir 400mg BID - Begin trial [id number], a Bispecific Antibody Targeting BCMA treatment - [...] BID Assessment & Plan (05/31/2021 10:51 AM ENVIRONMENTAL ENGINEERING MANAGER): Continue home pepcid, asx Renal mass 05/30/2021 Assessment & Plan (05/31/2021 10:51 AM ENVIRONMENTAL ENGINEERING MANAGER): Admitted for observation after L renal [...] 07/17/2023 Assessment & Plan (05/31/2021 10:52 AM ENVIRONMENTAL ENGINEERING MANAGER): Follows with oncology on daratumumab monotherapy [...] blood in urine Follow up pathology from bdhkohwex-pax-lhzbclpq high-grade papillary urothelial carcinoma (grade 2) --follow [...] blood in urine Follow up pathology from tykboizox-ckz-ikgzvxvu high-grade papillary urothelial carcinoma (grade 2) --follow [...] supplementation Assessment & Plan (05/31/2021 10:51 AM ENVIRONMENTAL ENGINEERING MANAGER): Stable on home losartan, nebivolol, triamterene-HCTZ [...] Encounters Date Type Department Care Team Description 10/07/2024 Orders Only [facility] Bone Marrow Transplant [address] [place] [address] 6 [place] [phone] Hermelindo Hill MD 10/05/2024 Orders Only [facility] Scanning, Provider 10/05/2024 Orders Only [facility] Bone Marrow Transplant [address] [place] [address] 6 [place] [phone] Hermelindo Hill MD Multiple myeloma, remission status unspecified (HCC) (Primary Dx) 09/28/2024 9:30 AM CDT Infusion [facility] - Infusion [address] Floor 6 [place] [address] Multiple myeloma in relapse (HCC) (Primary Dx); Multiple myeloma in remission (HCC) 09/28/2024 8:30 AM CDT Office Visit [facility] Bone Marrow Transplant [facility] [address] [place] [address] Lyndsey Fagan NP Multiple myeloma, remission status unspecified (HCC) (Primary Dx); Multiple myeloma in remission (HCC); Multiple myeloma in relapse (HCC) 09/28/2024 7:30 AM CDT Clinical Support [facility] - Lab Collection [address] [place] [address] 6 [place] [address] Multiple myeloma in remission (HCC); Multiple myeloma in relapse (HCC); Multiple myeloma, remission status unspecified (HCC) 09/15/2024 Orders Only [facility] 1 [place] [address] Preeti Wayne RPh 09/11/2024 1:43 AM CDT - 09/15/2024 5:22 PM CDT [facility] [place] [address] [place] [address] Emory Santana MD [place], MD Bonifacio Carrillo, Choco Murcia, DO Oliguria (Primary Dx); Bacteremia Discharge Disposition: Discharge to home, home health skilled care 09/10/2024 Orders Only Urology Yesika Capone PA Elevated prostate specific antigen (PSA) (Primary Dx) 09/07/2024 Orders Only [facility] Bone Marrow Transplant [address] [place] [phone] Hermelindo Hill MD 09/06/2024 Orders Only [facility] Bone Marrow Transplant [address] [place] [phone] Lyndsey Fagan NP 08/31/2024 10:00 AM CDT Infusion [facility] Infusion [address] [facility] Floor 6 [place] [address] Multiple myeloma in relapse (HCC) (Primary Dx); Multiple myeloma in remission (HCC) 08/31/2024 9:00 AM CDT Office Visit [facility] Bone Marrow Transplant [facility] [address] [phone] Hermelindo Hill MD Multiple myeloma in relapse (HCC) (Primary Dx); Multiple myeloma in remission (HCC) 08/31/2024 8:45 AM CDT Clinical Support [facility] - Lab Collection [address] [facility] 6 [place] [address] Multiple myeloma in relapse (HCC); Multiple myeloma not having achieved remission (HCC); Multiple myeloma, remission status unspecified (HCC) 08/31/2024 8:15 AM CDT Clinical Support [facility] Oncology Lab [facility] [address] [address] Multiple myeloma not having achieved remission (HCC); Multiple myeloma in remission (HCC) 08/30/2024 Orders Only [facility] Scanning, Provider 08/27/2024 Documentation Nephrology Ani Anne LCSW 08/27/2024 Orders Only [facility] Bone Marrow Transplant [address] [place] [phone] Hermelindo Hill MD Multiple myeloma not having achieved remission (HCC) (Primary Dx); JOHN (acute kidney injury) 08/25/2024 6:50 AM CDT Ancillary Procedure [facility] Vascular Lab IP [facility] [address] [place] [address] 08/23/2024 11:13 PM CDT - 08/26/2024 4:50 PM CDT Hospital Encounter [address] [phone] Hermelindo Hill MD [place], Thabet J.M., MD JOHN (acute kidney injury) (Primary Dx) Discharge Disposition: Discharge to home or self care 08/23/2024 7:10 PM CDT - 08/23/2024 11:59 PM CDT Hospital Encounter [facility] [address] [place] [address] Discharge Disposition: Discharge to home or self care 08/23/2024 5:24 PM CDT - 08/23/2024 11:59 PM CDT Hospital Encounter [facility] [address] [place] [address] Hermelindo Hill MD Elevated serum creatinine (Primary Dx); Multiple myeloma, remission status unspecified (HCC) Discharge Disposition: Discharge to home or self care 08/23/2024 Orders Only [address] [phone] Hermelindo Hill MD 08/23/2024 Orders Only [facility] Bone Marrow Transplant [address] [facility] Floor 6 [place] [address] Hermelindo Hill MD Multiple myeloma, remission status unspecified (HCC) (Primary Dx) 08/20/2024 Orders Only [facility] Scanning, Provider 08/10/2024 Orders Only [facility] Scanning, Provider 08/06/2024 1:45 PM ENVIRONMENTAL ENGINEERING MANAGER Clinical Support [facility] - Lab Collection [address] [facility] Floor 6 [place] [address] 08/06/2024 1:00 PM ENVIRONMENTAL ENGINEERING MANAGER - 08/06/2024 11:59 PM ENVIRONMENTAL ENGINEERING MANAGER Hospital Encounter [facility] [address] [place] [address] Multiple myeloma, remission status unspecified (HCC) Discharge Disposition: Discharge to home or self care 08/06/2024 8:00 AM ENVIRONMENTAL ENGINEERING MANAGER Infusion [facility] Infusion [address] [place] [address] Multiple myeloma not having achieved remission (HCC) (Primary Dx); Hypogammaglobuline hakeem 08/06/2024 7:15 AM ENVIRONMENTAL ENGINEERING MANAGER Clinical Support [facility] Lab Collection [address] [place] [address] Multiple myeloma in relapse (HCC) (Primary Dx); Multiple myeloma, remission status unspecified (HCC); JOHN (acute kidney injury) 08/06/2024 Telephone [facility] Bone Marrow Transplant [address] [place] [phone] Lyndsey Fagan NP 08/06/2024 Orders Only [facility] Bone Marrow Transplant [address] [place] [phone] Lyndsey Fagan NP Multiple myeloma, remission status unspecified (HCC) (Primary Dx) 08/06/2024 Orders Only [facility] Bone Marrow Transplant [address] [place] [phone] Lyndsey Fagan NP JOHN (acute kidney injury) (Primary Dx) 08/06/2024 Orders Only [facility] Bone Marrow Transplant [address] [place] [phone] Hermelindo Hill MD Multiple myeloma, remission status unspecified (HCC) (Primary Dx) 08/03/2024 9:30 AM ENVIRONMENTAL ENGINEERING MANAGER Infusion [facility] [address] [place] [address] 6 [place] [address] Multiple myeloma in relapse (HCC) (Primary Dx); Multiple myeloma in remission (HCC) 08/03/2024 8:30 AM ENVIRONMENTAL ENGINEERING MANAGER Office Visit [facility] Bone Marrow Transplant [address] [place] [phone] Hermelindo Hill MD Multiple myeloma, remission status unspecified (HCC) (Primary Dx); Multiple myeloma in remission (HCC); Multiple myeloma in relapse (HCC) 08/03/2024 7:30 AM ENVIRONMENTAL ENGINEERING MANAGER Clinical Support [facility] [place] - Lab Collection [address] [place] [address] 6 [place] [address] Multiple myeloma in remission (HCC); Multiple myeloma, remission status unspecified (HCC); Multiple myeloma in relapse (HCC) 08/03/2024 Orders Only [facility] Bone Marrow Transplant [address] [place] [phone] Hermelindo Hill MD 08/03/2024 Orders Only [facility] Bone Marrow Transplant [address] [place] [address] 6 [place] [address] Hermelindo Hill MD 08/03/2024 Orders Only [facility] Bone Marrow Transplant [address] [place] [phone] Hermelindo Hill MD 08/02/2024 Telephone [facility] Bone Marrow Transplant [address] [facility] [place] [address] Lyndsey Fagan NP 07/30/2024 Telephone [facility] Bone Marrow Transplant [address] [place] [phone] Hermelindo Hill MD 07/27/2024 Telephone [facility] Bone Marrow Transplant [address] [place] [phone] Hermelindo Hill MD 07/26/2024 Orders Only [facility] Bone Marrow Transplant [address] [place] [phone] Hermelindo Hill MD 07/26/2024 Orders Only [facility] Bone Marrow Transplant [address] [place] [phone] Hermelindo Hill MD 07/26/2024 Telephone [facility] Bone Marrow Transplant [address] [place] [phone] Margaret Kay, NAHUN Medical Question/Miscellan eous 07/13/2024 10:00 AM ENVIRONMENTAL ENGINEERING MANAGER Infusion [facility] Infusion [address] [place] [address] Multiple myeloma in relapse (HCC) (Primary Dx); Multiple myeloma in remission (HCC) 07/13/2024 9:00 AM ENVIRONMENTAL ENGINEERING MANAGER Office Visit [facility] Bone Marrow Transplant [address] [place] [phone] Hermelindo Hill MD Multiple myeloma, remission status unspecified (HCC) (Primary Dx); Multiple myeloma in remission (HCC); Hypogammaglobuline hakeem 07/13/2024 8:00 AM ENVIRONMENTAL ENGINEERING MANAGER Clinical Support [facility] Lab Collection [address] [facility] 6 [place] [address] Multiple myeloma in remission (HCC); Multiple myeloma in relapse (HCC); Multiple myeloma, remission status unspecified (HCC) 07/13/2024 Telephone [facility] Bone Marrow Transplant [address] [facility] 6 [place] [address] Fadumo Tobar RN from Last 3 Months Immunizations Immunization Administration [...] chemotherapy has chemo every 21 days at [facility] last tx 09/24/22 Cough patient states D [...] drink = 0.6 oz pur e alcohol) [facility] Utilities Answer Date Recorded In [...] often do you attend chur ch or lutheran services? More than 4 times per year 09/13/2024 Do you belong to any clubs o r organizations such as latter day groups, unions, fraternal or athletic groups, or [...] any time in the past 12 m [facility], were you homeless or living in a retirement (including now)? No 09/13/2024 Personal Safety Answer Date Recorded Have you ever been in or are you currently in a harmful physical or emotional relationship or is someone making you feel afraid or unsafe? Denies 09/11/2024 Sex and Gender Information Value Date Recorded Sex Assigned at Not on file Legal Sex 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 ENVIRONMENTAL ENGINEERING MANAGER Gender Identity Not on file Sexual Orientation [...] history exists Medical Devices Implanted Type Area Comic Book Writer Device Identifier Shelf Expiration Date Model / Serial / Lot Other - See Comments Other - see comments Right: Chest Wall Description:Upon arrival to IR, not accessed Procedures Procedure Name Priority Date/Time Associated Diagnosis Comments SCAN - LABS 10/05/2024 EGFR STAT 09/28/2024 7:43 AM CDT Multiple [...] AM CDT Multiple myeloma in relapse (HCC) TN INSJ NON-TUNNELED CENTRAL VENOUS CATH AGE 7 [...] Read Routine (OP Routine) 08/06/2024 2:42 PM ENVIRONMENTAL ENGINEERING MANAGER Multiple myeloma, remission status unspecified (HCC) URINALYSIS, MICROSCOPIC ONLY Routine 08/06/2024 9:19 AM ENVIRONMENTAL ENGINEERING MANAGER JOHN (acute kidney injury) PROTEIN / CREATININE RATIO, URINE, RANDOM Routine 08/06/2024 9:19 AM ENVIRONMENTAL ENGINEERING MANAGER JOHN (acute kidney injury) URINALYSIS AND REFLEX TO MICROSCOPIC Routine 08/06/2024 9:19 AM ENVIRONMENTAL ENGINEERING MANAGER JOHN (acute kidney injury) EGFR Routine 08/06/2024 7:43 AM ENVIRONMENTAL ENGINEERING MANAGER Multiple myeloma, remission status unspecified (HCC) DIFFERENTIAL AUTO Routine 08/06/2024 7:4 3 AM ENVIRONMENTAL ENGINEERING MANAGER Multiple myeloma, remission status unspecified (HCC) LACTATE DEHYDROGENASE Routine 08/06/2024 7:43 AM ENVIRONMENTAL ENGINEERING MANAGER Multiple myeloma, remission status unspecified (HCC) CBC WITH AUTO DIFFERENTIAL Routine 08/06/2024 7:43 AM ENVIRONMENTAL ENGINEERING MANAGER Multiple myeloma, remission status unspecified (HCC) COMPREHENSIVE METABOLIC PANEL Routine 08/06/2024 7:43 AM ENVIRONMENTAL ENGINEERING MANAGER Multiple myeloma, remission status unspecified (HCC) LIPID PANEL Routine 08/06/2024 7:43 AM ENVIRONMENTAL ENGINEERING MANAGER Multiple myeloma, remission status unspecified (HCC) PSA DIAGNOSTIC Routine 08/06/2024 7:43 AM ENVIRONMENTAL ENGINEERING MANAGER Multiple myeloma, remission status unspecified (HCC) PROTIME-INR STAT 08/03/2024 9:21 AM ENVIRONMENTAL ENGINEERING MANAGER Multiple myeloma in relapse (HCC) APTT STAT 08/03/2024 9:21 AM ENVIRONMENTAL ENGINEERING MANAGER Multiple myeloma in relapse (HCC) MAGNESIUM STAT 08/03/2024 7:40 AM ENVIRONMENTAL ENGINEERING MANAGER Multiple myeloma in relapse (HCC) GAMMA GT STAT 08/03/2024 7:40 AM ENVIRONMENTAL ENGINEERING MANAGER Multiple myeloma in relapse (HCC) EGFR Routine 08/03/2024 7:40 AM ENVIRONMENTAL ENGINEERING MANAGER Multiple myeloma, remission status unspecified (HCC) DIFFERENTIAL AUTO Routine 08/03/2024 7:4 0 AM ENVIRONMENTAL ENGINEERING MANAGER Multiple myeloma, remission status unspecified (HCC) CBC WITH AUTO DIFFERENTIAL Routine 08/03/2024 7:40 AM ENVIRONMENTAL ENGINEERING MANAGER Multiple myeloma, remission status unspecified (HCC) COMPREHENSIVE METABOLIC PANEL Routine 08/03/2024 7:40 AM ENVIRONMENTAL ENGINEERING MANAGER Multiple myeloma, remission status unspecified (HCC) IGA Routine 08/03/2024 7:40 AM ENVIRONMENTAL ENGINEERING MANAGER Multiple myeloma, remission status unspecified (HCC) IGG Routine 08/03/2024 7:40 AM ENVIRONMENTAL ENGINEERING MANAGER Multiple myeloma, remission status unspecified (HCC) IGM Routine 08/03/2024 7:40 AM ENVIRONMENTAL ENGINEERING MANAGER Multiple myeloma, remission status unspecified (HCC) IMMUNOGLOBULIN FREE LIGHT CHAINS Routine 08/03/2024 7:40 AM ENVIRONMENTAL ENGINEERING MANAGER Multiple myeloma, remission status unspecified (HCC) LACTATE DEHYDROGENASE Routine 08/03/2024 7:40 AM ENVIRONMENTAL ENGINEERING MANAGER Multiple myeloma, remission status unspecified (HCC) PROTEIN ELECTROPHORESIS, WITH REFLEX, SERUM Routine 08/03/2024 7:40 AM ENVIRONMENTAL ENGINEERING MANAGER Multiple myeloma, remission status unspecified (HCC) IMMUNOTYPING Routine 08/03/2024 7:40 AM ENVIRONMENTAL ENGINEERING MANAGER Multiple myeloma, remission status unspecified (HCC) HEMOGLOBIN A1C Routine 08/03/2024 7:40 AM ENVIRONMENTAL ENGINEERING MANAGER Multiple myeloma, remission status unspecified (HCC) URINALYSIS, MICROSCOPIC ONLY Routine 08/03/2024 7:30 AM ENVIRONMENTAL ENGINEERING MANAGER Multiple myeloma, remission status unspecified (HCC) URINE CULTURE Routine 08/03/2024 7:30 AM ENVIRONMENTAL ENGINEERING MANAGER URINALYSIS AND REFLEX TO MICROSCOPIC AND CULTURE Routine 08/03/2024 7:30 AM ENVIRONMENTAL ENGINEERING MANAGER Multiple myeloma, remission status unspecified (HCC) EGFR STAT 07/13/2024 7:40 AM ENVIRONMENTAL ENGINEERING MANAGER Multiple myeloma in relapse (HCC) DIFFERENTIAL AUTO STAT 07/13/2024 7:4 0 AM ENVIRONMENTAL ENGINEERING MANAGER Multiple myeloma in relapse (HCC) IGA Routine 07/13/2024 7:40 AM ENVIRONMENTAL ENGINEERING MANAGER Multiple myeloma, remission status unspecified (HCC) IGG Routine 07/13/2024 7:40 AM ENVIRONMENTAL ENGINEERING MANAGER Multiple myeloma, remission status unspecified (HCC) IGM Routine 07/13/2024 7:40 AM ENVIRONMENTAL ENGINEERING MANAGER Multiple myeloma, remission status unspecified (HCC) IMMUNOGLOBULIN FREE LIGHT CHAINS Routine 07/13/2024 7:40 AM ENVIRONMENTAL ENGINEERING MANAGER Multiple myeloma, remission status unspecified (HCC) PROTEIN ELECTROPHORESIS, WITH REFLEX, SERUM Routine 07/13/2024 7:40 AM ENVIRONMENTAL ENGINEERING MANAGER Multiple myeloma, remission status unspecified (HCC) IMMUNOTYPING Routine 07/13/2024 7:40 AM ENVIRONMENTAL ENGINEERING MANAGER Multiple myeloma, remission status unspecified (HCC) LACTATE DEHYDROGENASE Routine 07/13/2024 7:40 AM ENVIRONMENTAL ENGINEERING MANAGER Multiple myeloma in relapse (HCC) GAMMA GT STAT 07/13/2024 7:40 AM ENVIRONMENTAL ENGINEERING MANAGER Multiple myeloma in relapse (HCC) MAGNESIUM STAT 07/13/2024 7:40 AM ENVIRONMENTAL ENGINEERING MANAGER Multiple myeloma in relapse (HCC) COMPREHENSIVE METABOLIC PANEL STAT 07/13/2024 7:40 AM ENVIRONMENTAL ENGINEERING MANAGER Multiple myeloma in relapse (HCC) CBC WITH AUTO DIFFERENTIAL STAT 07/13/2024 7:40 AM ENVIRONMENTAL ENGINEERING MANAGER Multiple myeloma in relapse (HCC) APTT STAT 07/13/2024 7:24 AM ENVIRONMENTAL ENGINEERING MANAGER Multiple myeloma in relapse (HCC) PROTIME-INR STAT 07/13/2024 7:24 AM ENVIRONMENTAL ENGINEERING MANAGER Multiple myeloma in relapse (HCC) HEPATITIS C ANTIBODY STAT 10/16/2021 9:50 AM CDT Multiple myeloma in relapse (HCC) from Last 3 Months or Most Recently Relevant to Health Maintenance Results * SCAN - LABS (10/05/2024) us Provider Scanning Final Result * Immunotyping, serum with interpretation (09/28/2024 7:43 AM CDT) Immunosubtraction Please see comment Comment: NO PARAPROTEIN DETECTED Reviewed and signed by Ivan Sims MD, PhD 09/29/2024 Blood 09/28/2024 7:43 AM CDT 09/28/2024 9:50 AM CDT us Hermelindo Butler MD LAB BLOOD ORDER ELANA Final Result [facility] Department [place] [address] * (ABNORMAL) eGFR (09/28/2024 7:43 AM CDT) [...] 7:43 AM CDT 09/28/2024 8:03 AM CDT us Hermelindo Butler MD LAB BLOOD ORDER ELANA Final Result [facility] Department [place] [address] * (ABNORMAL) eGFR (09/28/2024 7:43 AM CDT) Pathologist [facility] [place] eGFR 40(L) >=60 mL/min/1. 73 m2 Comment: [...] ORDER ELANA Final Result [facility] Department [place] [address] * (ABNORMAL) Differential, auto (09/28/2024 7:43 AM CDT) [facility] Neutrophil abs 5.12 1.50 - 6.50 K/cumm Comment:Testing performed by : [facility], [address] [place] [phone] Lymphocyte abs 0.72(L) 0.80 - 3.30 K/cumm MT [facility] Comment:Testing performed by : [facility], [address] [place] [phone] Monocyte abs 0.50 0.20 - 0.80 K/cumm [facility] Comment:Testing performed by : [facility], [address] [place] [phone] Eosinophil abs 0.15 0.00 - 0.50 K/cumm [facility] Comment:Testing performed by : [facility], [address] [place] [phone] Basophil abs 0.04 0.00 - 0.10 K/cumm [facility] Comment:Testing performed by : [facility], [address] [place] [phone] Neutrophil pct 78.4 % [facility] Comment: Interpretive Data Percent cell count reference ranges are not reported, since discordance with absolute values may lead to misinterpretation of CBC data. Current Interpretive Data was last revised on 2017. Testing performed by: [facility], [address] [place] [phone] Lymphocyte pct 11.0 % [facility] Comment: Interpretive Data Percent cell count reference ranges are not reported, since discordance with absolute values may lead to misinterpretation of CBC data. Current Interpretive Data was last revised on 2017. Testing performed by: [facility], [address] [place] [phone] Monocyte pct 7.7 % [facility] Comment: Interpretive Data Percent cell count reference ranges are not reported, since discordance with absolute values may lead to misinterpretation of CBC data. Current Interpretive Data was last revised on 2017. Testing performed by: [facility], [address] [place] [phone] Eosinophil pct 2.3 % [facility] Comment: Interpretive Data Percent cell count reference ranges are not reported, since discordance with absolute values may lead to misinterpretation of CBC data. Current Interpretive Data was last revised on 2017. Testing performed by: [facility], [address] [place] [phone] Basophil pct 0.7 % [facility] Comment: Interpretive Data Percent cell count reference ranges are not reported, since discordance with absolute values may lead to misinterpretation of CBC data. Current Interpretive Data was last revised on 2017. Testing performed by: [facility], [address] [place] [phone] Blood 09/28/2024 7:43 AM CDT 09/28/2024 8:00 AM CDT Hermelindo Butler MD LAB BLOOD ORDER ELANA Final Result [facility] Department [place] [address] * (ABNORMAL) Immunoglobulin free light chains (09/28/2024 7:43 AM CDT) Needmore/Lambda ratio [facility] See Comment 0.26 - 1.65 Comment: Unable to calculate exact result. Interpretive Data The Binding Site FreeLite assay procedure was used. Results from different manufacturers or methods may not be comparable. Serial testing should be performed using the same methods and instrumentation. Current Interpretive Data was last revised on 2023. [place]more free light chain [facility] <0.06(L) 0.33 - 1.94 mg/dL [facility] Comment: Interpretive Data The Binding Site FreeLite assay procedure was used. Results from different manufacturers or methods may not be comparable. Serial testing should be performed using the same methods and instrumentation. Current Interpretive Data was last revised on 2023. Lambda free light chain [facility] <0.14(L) 0.57 - 2.63 mg/dL [facility] Comment: Interpretive Data The Binding Site FreeLite assay procedure was used. Results from different manufacturers or methods may not be comparable. Serial testing should be performed using the same methods and instrumentation. Current Interpretive Data was last revised on 2023. Blood 09/28/2024 7:43 AM CDT 09/28/2024 9:50 AM CDT Hermelindo Butler MD LAB BLOOD ORDER ELANA Final Result [facility] Department [place] [address] * (ABNORMAL) CBC with auto differential (09/28/2024 7:43 AM CDT) WBC 6.53 3.80 - 9.90 K/cumm Comment:Testing performed by : [facility], [address] [place] [address] Hgb 11.5(L) 13.0 - 17.5 g/dL CERNER [facility] Comment:Testing performed by : [facility], [address] [place] [address] Hct 34.4(L) 38.9 - 50.3 % CERNER BJ Comment:Testing performed by : [facility], [address] [place] [address] Plt 229 150 - 400 K/cumm CERNER BJ Comment:Testing performed by : [facility], [address] [place] [address] MPV 7.0 6.8 - 10.4 fL CERNER BJ Comment:Testing performed by : [facility], [address] [place] [address] RBC 3.61(L) 4.30 - 5.80 M/cumm CERNER BJ Comment:Testing performed by : [facility], [address] [place] [address] MCV 95.2 81.3 - 96.4 fL CERNER BJ Comment:Testing performed by : [facility], [address] [place] [address] MCH 31.7 27.1 - 33.3 pg CERNER BJ Comment:Testing performed by : [facility], [address] [place] [address] MCHC 33.3 32.3 - 35.7 g/dL CERNER BJ Comment:Testing performed by : [facility], [address] [place] [address] RDW CV 15.6(H) 11.1 - 14.9 % [facility] Comment:Testing performed by : [facility], [address] [place] [phone] NRBC abs 0.00 0.00 - 0.01 K/cumm [facility] Comment:Testing performed by : [facility], [address] [place] [phone] Blood 09/28/2024 7:43 AM CDT 09/28/2024 8:00 AM CDT Hermleindo Butler MD LAB BLOOD ORDER ELANA Final Result Performing Organization Address [facility] de Phone Number [facility] [place] [address] * aPTT (09/28/2024 7:43 AM CDT) aPTT [...] ORDER ELANA Final Result Performing Organization Address [facility] de Phone Number [facility] Department [place] [address] * Protime-INR (09/28/2024 7:43 AM CDT) PT 11.9 9.7 - 13.0 sec INR 1.10 0.90 - 1.20 [facility] Comment: Interpretive data Oral anticoagulant therapeutic [...] Organization Address City/[facility]/ZIP Co de Phone Number [facility] [place] [address] * (ABNORMAL) Protein electrophoresis with reflex, serum with interpretation (09/28/2024 7:43 AM CDT) Pathologist [facility] Protein, sr 5.6(L) 6.2 - 8.2 g/dL Albumin 3.7 3.2 - 5.0 g/dL [facility] Alpha-1 globulin 0.4 0.2 - 0.4 g/dL [facility] Alpha-2 globulin 0.8 0.5 - 1.0 g/dL [facility] Beta-1 globulin 0.4 0.3 - 0.6 g/dL [facility] Beta-2 globulin 0.2 0.2 - 0.6 g/dL [facility] Gamma globulin 0.1(L) 0.5 - 1.7 g/dL [facility] SPEP interp Please see comment [facility] Comment: No apparent monoclonal peak Decreased gamma globulins Electrophoretic pattern appears similar to previous sample 09-01-24 See immunotyping for further information Reviewed and signed by Ivan Sims MD, PhD 09/29/2024 Blood 09/28/2024 7:43 AM CDT 09/28/2024 9:50 AM CDT Hermelindo Butler MD LAB BLOOD ORDER ELANA Final Result Performing Organization Address City/[facility]/ZIP Co de Phone Number [facility] [place] [address] * Magnesium (09/28/2024 7:43 AM CDT) Pathologist [facility] Magnesium 2.2 1.4 - 2.5 mg/dL Blood 09/28/2024 7:43 AM CDT 09/28/2024 8:03 AM CDT Hermelindo Butler MD LAB BLOOD ORDER ELANA Final Result Performing Organization Address City/[facility] Co de Phone Number [facility] [place] [address] * Lactate dehydrogenase (LD) (09/28/2024 7:43 AM CDT) [facility] Lactate dehydrogenase (LDH) 132 100 - 250 Units/L Blood 09/28/2024 7:43 AM CDT 09/28/2024 8:03 AM CDT Hermelindo Butler MD LAB BLOOD ORDER ELANA Final Result Performing Organization Address [facility] de Phone Number [facility] [place] [address] * Gamma GT (09/28/2024 7:43 AM CDT) Pathologist [facility] GGT 28 10 - 50 Units/L Blood 09/28/2024 7:43 AM CDT 09/28/2024 8:03 AM CDT Hermelindo Butler MD LAB BLOOD ORDER ELANA Final Result Performing Organization Address [facility] de Phone Number [facility] [place] [address] * (ABNORMAL) IgA (09/28/2024 7:43 AM CDT) Pathologist [facility] Immunoglobulin A <50(L) 70 - 400 mg/dL Blood 09/28/2024 7:43 AM CDT 09/28/2024 8:24 AM CDT Hermelindo Butler MD LAB BLOOD ORDER ELANA Final Result Performing Organization Address [facility] Co de Phone Number [facility] [place] [address] * (ABNORMAL) IgM (09/28/2024 7:43 AM CDT) [facility] Immunoglobulin M <25(L) 40 - 230 mg/dL Blood 09/28/2024 7:43 AM CDT 09/28/2024 8:24 AM CDT Hermelindo Butler MD LAB BLOOD ORDER ELANA Final Result Performing Organization Address [facility] de Phone Number [facility] Department [place] [address] * (ABNORMAL) IgG (09/28/2024 7:43 AM CDT) [facility] Immunoglobulin G <300(L) 700 - 1,600 mg/dL Blood 09/28/2024 7:43 AM CDT 09/28/2024 8:24 AM CDT Hermelindo Butler MD LAB BLOOD ORDER ELANA Final Result Performing Organization Address [facility] [place] [address] * (ABNORMAL) Comprehensive metabolic panel (09/28/2024 7:43 AM CDT) [facility] Sodium 143 135 - 145 mmol/L Potassium, pl 4.1 3.3 - 4.9 mmol/L [facility] Chloride 106 97 - 110 mmol/L [facility] CO2 27 22 - 32 mmol/L [facility] Anion gap 10 2 - 15 mmol/L [facility] BUN 30(H) 6 - 25 mg/dL [facility] Creatinine 1.80(H) 0.80 - 1.30 mg/dL [facility] Glucose 106 70 - 199 mg/dL [facility] Comment: Interpretive Data Fasting glucose >/= [...] 2022. Calcium 9.6 8.5 - 10.3 mg/dL [facility] Bilirubin, total 0.5 0.1 - 1.2 mg/dL [facility] Protein, pl 6.2(L) 6.5 - 8.5 g/dL [facility] Albumin 3.9 3.5 - 5.0 g/dL [facility] Alk phos 62 40 - 130 Units/L [facility] ALT 12 7 - 55 Units/L [facility] AST 13 10 - 50 Units/L [facility] Blood 09/28/2024 7:43 AM CDT 09/28/2024 8:02 AM CDT Hermelindo Butler MD LAB BLOOD ORDER ELANA Final Result [facility] Department [place] [address] * (ABNORMAL) Comprehensive metabolic panel (09/28/2024 7:43 AM CDT) Sodium 143 135 - 145 mmol/L Potassium, pl 4.1 3.3 - 4.9 mmol/L [facility] Chloride 106 97 - 110 mmol/L [facility] CO2 27 22 - 32 mmol/L [facility] Anion gap 10 2 - 15 mmol/L [facility] BUN 31(H) 6 - 25 mg/dL [facility] Creatinine 1.80(H) 0.80 - 1.30 mg/dL [facility] Glucose 105 70 - 199 mg/dL [facility] Comment: Interpretive Data Fasting glucose >/= [...] 2022. Calcium 9.6 8.5 - 10.3 mg/dL [facility] Bilirubin, total 0.5 0.1 - 1.2 mg/dL [facility] Protein, pl 6.1(L) 6.5 - 8.5 g/dL [facility] Albumin 4.0 3.5 - 5.0 g/dL [facility] Alk phos 61 40 - 130 Units/L [facility] ALT 13 7 - 55 Units/L [facility] AST 13 10 - 50 Units/L [facility] Blood 09/28/2024 7:43 AM CDT 09/28/2024 8:03 AM CDT Hermelindo Butler MD LAB BLOOD ORDER ELANA Final Result 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 agrees and accepts Patient's stated name/ [...] Santana MD LAB BLOOD ORDERABLES Final Result [facility] [address] Department [place] [address] * (ABNORMAL) CBC without differential (09/15/2024 3:52 AM CDT) WBC 6.46 3.80 - 9.90 K/cumm Hgb 10.1(L) 13.0 - 17.5 g/dL [facility] Hct 31.4(L) 38.9 - 50.3 % [facility] Plt 149(L) 150 - 400 K/cumm [facility] MPV 9.2 9.1 - 12.3 fL [facility] RBC 3.20(L) 4.30 - 5.80 M/cumm [facility] MCV 98.1(H) 81.3 - 96.4 fL [facility] MCH 31.6 27.1 - 33.3 pg [facility] MCHC 32.2(L) 32.3 - 35.7 g/dL [facility] RDW CV 14.9 11.1 - 14.9 % [facility] RDW SD 54.3(H) 35.7 - 48.1 fL [facility] NRBC abs 0.00 0.00 - 0.01 K/cumm [facility] Blood 09/15/2024 3:52 AM CDT 09/15/2024 4:02 AM CDT us Emory Santana MD LAB BLOOD ORDERABLES Final Result [facility] [address] Department [place] [address] * (ABNORMAL) Basic metabolic panel (09/15/2024 3:52 AM CDT) Sodium 143 135 - 145 mmol/L Potassium, pl 3.2(L) 3.3 - 4.9 mmol/L [facility] Chloride 105 97 - 110 mmol/L [facility] CO2 28 22 - 32 mmol/L [facility] Anion gap 10 2 - 15 mmol/L [facility] BUN 12 6 - 25 mg/dL [facility] Creatinine 1.45(H) 0.80 - 1.30 mg/dL [facility] Glucose 110 70 - 199 mg/dL [facility] Comment: Interpretive Data Fasting glucose >/= [...] 2022. Calcium 8.2(L) 8.5 - 10.3 mg/dL [facility] Blood 09/15/2024 3:52 AM CDT 09/15/2024 4:02 AM CDT us Emory Santana MD LAB BLOOD ORDERABLES Final Result Performing Organization Address City/[facility]/ZIP Co de Phone Number [facility] [address] Department [place] [address] * (ABNORMAL) eGFR (09/14/2024 2:25 AM CDT) [facility] eGFR 48(L) >=60 mL/min/1. 73 m2 Comment: [...] Santana MD LAB BLOOD ORDERABLES Final Result [facility] [address] Department [place] [address] * (ABNORMAL) CBC without differential (09/14/2024 2:25 AM CDT) [facility] WBC 5.62 3.80 - 9.90 K/cumm Hgb 10.0(L) 13.0 - 17.5 g/dL [facility] Hct 31.1(L) 38.9 - 50.3 % [facility] Plt 163 150 - 400 K/cumm [facility] MPV 9.3 9.1 - 12.3 fL [facility] RBC 3.15(L) 4.30 - 5.80 M/cumm [facility] MCV 98.7(H) 81.3 - 96.4 fL [facility] MCH 31.7 27.1 - 33.3 pg [facility] MCHC 32.2(L) 32.3 - 35.7 g/dL [facility] RDW CV 15.4(H) 11.1 - 14.9 % [facility] RDW SD 55.6(H) 35.7 - 48.1 fL [facility] NRBC abs 0.00 0.00 - 0.01 K/cumm [facility] Blood 09/14/2024 2:25 AM CDT 09/14/2024 2:44 AM CDT us Emory Santana MD LAB BLOOD ORDERABLES Final Result [facility] [address] Department [place] [address] * (ABNORMAL) Basic metabolic panel (09/14/2024 2:25 AM CDT) Sodium 146(H) 135 - 145 mmol/L Potassium, pl 3.3 3.3 - 4.9 mmol/L [facility] Chloride 108 97 - 110 mmol/L [facility] CO2 27 22 - 32 mmol/L [facility] Anion gap 11 2 - 15 mmol/L [facility] BUN 18 6 - 25 mg/dL [facility] Creatinine 1.53(H) 0.80 - 1.30 mg/dL [facility] Glucose 116 70 - 199 mg/dL [facility] Comment: Interpretive Data Fasting glucose >/= [...] Calcium 8.1(L) 8.5 - 10.3 mg/dL [facility] Blood 09/14/2024 2:25 AM CDT 09/14/2024 2:44 AM CDT us Emory Santana MD LAB BLOOD ORDERABLES Final Result Performing Organization Address City/[facility]/ZIP Co de Phone Number [facility] [address] [employer] [place] [address] * (ABNORMAL) eGFR (09/13/2024 3:21 AM CDT) [...] BLOOD ORDERABLES Final Result Performing Organization Address City/[facility]/ZIP Co de Phone Number [facility] [address] Department [employer] [place], [place] [id number] * (ABNORMAL) CBC without differential (09/13/2024 3:21 AM CDT) [facility] WBC 5.46 3.80 - 9.90 K/cumm Hgb 10.1(L) 13.0 - 17.5 g/dL [facility] Hct 30.8(L) 38.9 - 50.3 % [facility] Plt 160 150 - 400 K/cumm [facility] MPV 9.7 9.1 - 12.3 fL [facility] RBC 3.15(L) 4.30 - 5.80 M/cumm [facility] MCV 97.8(H) 81.3 - 96.4 fL [facility] MCH 32.1 27.1 - 33.3 pg [facility] MCHC 32.8 32.3 - 35.7 g/dL [facility] RDW CV 15.7(H) 11.1 - 14.9 % [facility] RDW SD 56.4(H) 35.7 - 48.1 fL [facility] NRBC abs 0.00 0.00 - 0.01 K/cumm [facility] Blood 09/13/2024 3:21 AM CDT 09/13/2024 3:48 AM CDT us Emory Santana MD LAB BLOOD ORDERABLES Final Result [facility] [address] Department [place] [address] * (ABNORMAL) Basic metabolic panel (09/13/2024 3:21 AM CDT) [facility] Sodium 141 135 - 145 mmol/L Potassium, pl 3.3 3.3 - 4.9 mmol/L [facility] Chloride 105 97 - 110 mmol/L [facility] CO2 24 22 - 32 mmol/L [facility] Anion gap 12 2 - 15 mmol/L [facility] BUN 24 6 - 25 mg/dL [facility] Creatinine 1.55(H) 0.80 - 1.30 mg/dL [facility] Glucose 115 70 - 199 mg/dL [facility] Comment: Interpretive Data Fasting glucose >/= [...] 2022. Calcium 8.1(L) 8.5 - 10.3 mg/dL [facility] Blood 09/13/2024 3:21 AM CDT 09/13/2024 3:48 AM CDT us Emory Santana MD LAB BLOOD ORDERABLES Final Result [facility] [address] Department [place] [address] * TRANSTHORACIC ECHO (TTE) COMPLETE W DOPPLER/CF WO CONTRAST (09/12/2024 2:39 PM CDT) LV EF 55-60 % CONS SCIMAGE Anatomical Region Laterality Modality Ultrasound 09/12/2024 12:1 1 PM CDT Narrative 09/12/2024 2:[address] [facility] [address] [address] ECHOCARDIOGRAM Patient Name: BUFFY VALLE Carl : 1950 (73y 9m) Gender: M Study Date: 09/12/2024 12:11:05 PM Ht(Inch): 69 Wt(Lb): 275.57 BSA: 2.47 Historiography Professor: JIM Location: [id number] Order Provider: ANUP SIN BMI: 40.69 BP: [...] Procedure Note Choco Thomas MD - 09/12/2024 [place] [id number] [place] [address] ECHOCARDIOGRAM Patient Name: BUFFY VALLECarl : 1950 (73y 9m) Gender: M Study Date: 09/12/2024 12:11:05 PM Ht(Inch): 69 Wt(Lb): 275.57 BSA: 2.47 Historiography Professor: TC Location: [id number] Order Provider: ANUP SIN BMI: 40.69 BP: [...] Santana MD LAB BLOOD ORDERABLES Final Result [facility] [address] Department [place] [address] * (ABNORMAL) CBC without differential (09/12/2024 3:14 AM CDT) WBC 7.12 3.80 - 9.90 K/cumm Hgb 10.3(L) 13.0 - 17.5 g/dL [facility] Hct 31.8(L) 38.9 - 50.3 % [facility] Plt 150 150 - 400 K/cumm [facility] MPV 9.5 9.1 - 12.3 fL [facility] RBC 3.23(L) 4.30 - 5.80 M/cumm [facility] MCV 98.5(H) 81.3 - 96.4 fL [facility] MCH 31.9 27.1 - 33.3 pg [facility] MCHC 32.4 32.3 - 35.7 g/dL [facility] RDW CV 15.9(H) 11.1 - 14.9 % [facility] RDW SD 57.1(H) 35.7 - 48.1 fL [facility] NRBC abs 0.00 0.00 - 0.01 K/cumm [facility] Blood 09/12/2024 3:14 AM CDT 09/12/2024 3:35 AM CDT Emory Santana MD LAB BLOOD ORDERABLES Final Result [facility] [address] Department [place] [address] * (ABNORMAL) Basic metabolic panel (09/12/2024 3:14 AM CDT) Sodium 139 135 - 145 mmol/L Potassium, pl 3.3 3.3 - 4.9 mmol/L [facility] Chloride 101 97 - 110 mmol/L [facility] CO2 23 22 - 32 mmol/L [facility] Anion gap 15 2 - 15 mmol/L [facility] BUN 31(H) 6 - 25 mg/dL [facility] Creatinine 1.96(H) 0.80 - 1.30 mg/dL [facility] Glucose 114 70 - 199 mg/dL [facility] Comment: Interpretive Data Fasting glucose >/= [...] 2022. Calcium 8.4(L) 8.5 - 10.3 mg/dL [facility] Blood 09/12/2024 3:14 AM CDT 09/12/2024 3:34 AM CDT Emory Santana MD LAB BLOOD ORDERABLES Final Result Performing Organization Address City/[facility]/ZIP Co de Phone Number [facility] [address] [facility] [place] [address] * (ABNORMAL) eGFR (09/11/2024 4:59 [...] MD LAB BLOOD ORDERABLES Final Result [facility] [address] [place] [place] [address] * Blood culture Blood (09/11/2024 4:59 AM CDT) Report Final Report: No growth Blood 09/11/2024 4:59 AM CDT 09/11/2024 5:09 AM CDT Narrative [facility] - 09/16/2024 7:01 AM CDT From a [...] organism identification may be performed using the [employer] Blood Culture Identification panel. This assay detects microbial DNA in a blood culture broth. This assay has been cleared by the [facility] Food and Drug Administration and its performance characteristics have been verified by the [facility]. Interpretive data was last revised on July 11, 2022. us Emory Santana MD LAB MICROBIOLOGY - GENERAL ORDERABLES Final Result Performing Organization Address City/[facility]/ZIP Co de Phone Number [facility] [address] [employer] [place] [address] * Blood culture Blood (09/11/2024 4:59 AM CDT) Report Final Report: No growth Blood 09/11/2024 4:59 AM CDT 09/11/2024 5:09 AM CDT [facility]ative [facility] - 09/16/2024 7:01 AM CDT Collection->Peripheral Interpretive [...] organism identification may be performed using the [employer] Blood Culture Identification panel. This assay detects microbial DNA in a blood culture broth. This assay has been cleared by the [place] Food and Drug Administration and its performance characteristics have been verified by the [facility] Microbiology Laboratory. Interpretive data was last revised on July 11, 2022. us Emory Santana MD LAB MICROBIOLOGY - GENERAL ORDERABLES Final Result Performing Organization Address City/[facility]/ZIP Co de Phone Number [facility] [address] Department [place] [address] * (ABNORMAL) CBC without differential (09/11/2024 4:59 AM CDT) [facility] WBC 11.33(H) 3.80 - 9.90 K/cumm Hgb 10.8(L) 13.0 - 17.5 g/dL [facility] Hct 33.2(L) 38.9 - 50.3 % [facility] Plt 138(L) 150 - 400 K/cumm [facility] MPV 9.5 9.1 - 12.3 fL [facility] RBC 3.37(L) 4.30 - 5.80 M/cumm [facility] MCV 98.5(H) 81.3 - 96.4 fL [facility] MCH 32.0 27.1 - 33.3 pg [facility] MCHC 32.5 32.3 - 35.7 g/dL [facility] RDW CV 15.9(H) 11.1 - 14.9 % [facility] RDW SD 57.7(H) 35.7 - 48.1 fL [facility] NRBC abs 0.00 0.00 - 0.01 K/cumm [facility] Blood 09/11/2024 4:5 9 AM CDT 09/11/2024 5:08 AM CDT us Emory Santana MD LAB BLOOD ORDERABLES Final Result [facility] [address] Department [place] [address] * (ABNORMAL) Basic metabolic panel (09/11/2024 4:59 AM CDT) [facility] Sodium 139 135 - 145 mmol/L Potassium, pl 3.7 3.3 - 4.9 mmol/L [facility] Chloride 102 97 - 110 mmol/L [facility] CO2 23 22 - 32 mmol/L [facility] Anion gap 14 2 - 15 mmol/L [facility] BUN 39(H) 6 - 25 mg/dL [facility] Creatinine 2.45(H) 0.80 - 1.30 mg/dL [facility] Glucose 131 70 - 199 mg/dL [facility] Comment: Interpretive Data Fasting glucose >/= [...] 2022. Calcium 8.8 8.5 - 10.3 mg/dL [facility] Blood 09/11/2024 4:59 AM CDT 09/11/2024 5:07 AM CDT Emory Santana MD LAB BLOOD ORDERABLES Final Result [facility] [address] Department [place] [address] * (ABNORMAL) Urinalysis reflex to microscopic and culture Urine, indwelling catheter (09/11/2024 4:07AM CDT) Color, ur Yellow Yellow Clarity, ur Clear Clear [facility] Specific gravity, ur 1.013 1.003 - 1.030 [facility] pH, urine 5.5 [facility] Comment: Interpretive Data U rine pH is affected by diet, medications, systemic acid-base disturbances, and renal tubular function. pH may affect urinary stone formation. For example, urine pH below 6.0 may help reduce the tendency for calcium phosphate stones and pH greater than 6.0 may reduce the tendency for uric acid stone formation. Source: [facility] [employer] Current Interpretive Data was last revised on 2017 Protein, ur ql Trace Negative [facility] Glucose, ur ql Negative Negative [facility] Ketones, ur Negative Negative [facility] Bilirubin, ur Negative Negative [facility] Blood, ur 1+(A) Negative [facility] Urobilinogen, ur <2.0 <2.0 mg/dL [facility] Nitrite, ur Negative Negative [facility] Leukocyte esterase, ur 2+(A) Negative [facility] UA reflex comment Reflex to microscopic UA will be performed. [facility] Urine, indwelling catheter 09/11/2024 4:07 AM CDT 09/11/2024 4:07 AM CDT us Emory Santana MD LAB MICROBIOLOGY - GENERAL ORDERABLES Final Result Performing Organization Address [facility] Co de Phone Number [facility] [address] Department [place] [address] * (ABNORMAL) Urinalysis, microscopic only (09/11/2024 4:07 AM CDT) WBC, ur 11-20(A) 0 - 5 /HPF RBC, ur 3-5(A) 0 - 2 /HPF [facility] Culture Reflex Comment Reflex to urine culture will be performed. [facility] Urine, indwelling catheter 09/11/2024 4:07 AM CDT 09/11/2024 4:14 AM CDT us Emory Santana MD LAB URINE ORDERABLES Final Result Performing Organization Address [facility] de Phone Number [facility] [address] Department [place] [address] * (ABNORMAL) Urine culture Urine, indwelling catheter (09/11/2024 4:07 AM CDT) Report Final Report: Less than 10,000 colonies/ml of Gram Positive Organism No further workup. (.) Organism GRAM POSITIVE ORGANISM [facility] Urine, indwelling catheter 09/11/2024 4:07 AM CDT 09/11/2024 6:47 AM CDT Narrative [facility] - 09/13/2024 7:16 AM CDT Urine culture reflexed based upon urinalysis results. Emory Santana MD LAB MICROBIOLOGY - GENERAL ORDERABLES Final Result Performing Organization Address [facility] Co de Phone Number [facility] [address] Department of Laboratories [place], [place] [id number] * (ABNORMAL) eGFR (09/11/2024 2:32 AM CDT) [...] Organization Address [facility]/ZIP Co de Phone Number [facility] [address] Department of Laboratories [place], [place] [id number] * (ABNORMAL) Differential, auto (09/11/2024 2:32 AM CDT) Pathologist [facility] Neutrophil abs 12.22(H) 1.50 - 6.50 K/cumm Imm gran abs 0.10 0.00 - 0.10 K/cumm [facility] Lymphocyte abs 0.79(L) 0.80 - 3.30 K/cumm [facility] Monocyte abs 1.12(H) 0.20 - 0.80 K/cumm [facility] Eosinophil abs 0.00 0.00 - 0.50 K/cumm [facility] Basophil abs 0.03 0.00 - 0.10 K/cumm [facility] Neutrophil pct 85.7 % [facility] Comment: Interpretive Data Percent cell count reference ranges are not reported, since discordance with absolute values may lead to misinterpretation of CBC data. Current Interpretive Data was last revised on 2017. Imm gran pct 0.7 % [facility] Comment: Interpretive Data Percent cell count reference ranges are not reported, since discordance with absolute values may lead to misinterpretation of CBC data. Current Interpretive Data was last revised on 2017. Lymphocyte pct 5.5 % [facility] Comment: Interpretive Data Percent cell count reference ranges are not reported, since discordance with absolute values may lead to misinterpretation of CBC data. Current Interpretive Data was last revised on 2017. Monocyte pct 7.9 % [facility] Comment: Interpretive Data Percent cell count reference ranges are not reported, since discordance with absolute values may lead to misinterpretation of CBC data. Current Interpretive Data was last revised on 2017. Eosinophil pct 0.0 % [facility] Comment: Interpretive Data Percent cell count reference ranges are not reported, since discordance with absolute values may lead to misinterpretation of CBC data. Current Interpretive Data was last revised on 2017. Basophil pct 0.2 % [facility] Comment: Interpretive Data Percent cell count reference ranges are not reported, since discordance with absolute values may lead to misinterpretation of CBC data. Current Interpretive Data was last revised on 2017. Blood 09/11/2024 2:32 AM CDT 09/11/2024 2:46 AM CDT us Emory Santana MD LAB BLOOD ORDERABLES Final Result [facility] [address] Department [place] [address] * (ABNORMAL) CBC with auto differential (09/11/2024 2:32 AM CDT) [facility] WBC 14.26(H) 3.80 - 9.90 K/cumm Hgb 11.6(L) 13.0 - 17.5 g/dL [facility] Hct 34.8(L) 38.9 - 50.3 % [facility] Plt 171 150 - 400 K/cumm [facility] MPV 9.8 9.1 - 12.3 fL [facility] RBC 3.59(L) 4.30 - 5.80 M/cumm [facility] MCV 96.9(H) 81.3 - 96.4 fL [facility] MCH 32.3 27.1 - 33.3 pg [facility] MCHC 33.3 32.3 - 35.7 g/dL [facility] RDW CV 16.1(H) 11.1 - 14.9 % [facility] RDW SD 57.1(H) 35.7 - 48.1 fL [facility] NRBC abs 0.00 0.00 - 0.01 K/cumm [facility] Blood 09/11/2024 2:32 AM CDT 09/11/2024 2:46 AM CDT us Emory Santana MD LAB BLOOD ORDERABLES Final Result [facility] [address] Department [place] [address] * aPTT (09/11/2024 2:32 AM CDT) [facility] aPTT 32 28 - 38 sec Comment: [...] Organization Address [facility] Co de Phone Number [facility] [address] [facility] [employer] [place], [place] [phone] * (ABNORMAL) Protime-INR (09/11/2024 2:32 AM CDT) PT 16.4(H) 9.7 - 13.0 sec INR 1.51(H) 0.90 - 1.20 [facility] Comment: Interpretive data Oral anticoagulant therapeutic ranges: [...] Organization Address [facility] Co de Phone Number [facility] [address] [facility] [employer] [place], [place] [id number] * Vancomycin level random (09/11/2024 2:32 AM CDT) Vancomycin random <4.0 mcg/mL Comment: Interpretive Data No reference ranges have been established for random drug levels. Current Interpretive Data was last revised on 2020. Blood 09/11/2024 2:32 AM CDT 09/11/2024 2:46 AM CDT us Emory Santana MD LAB BLOOD ORDERABLES Final Result Performing Organization Address City/[facility] Co de Phone Number [facility] [address] [place] [address] * (ABNORMAL) Comprehensive metabolic panel (09/11/2024 2:32 AM CDT) [facility] Sodium 140 135 - 145 mmol/L Potassium, pl 3.7 3.3 - 4.9 mmol/L [facility] Chloride 103 97 - 110 mmol/L [facility] CO2 22 22 - 32 mmol/L [facility] Anion gap 15 2 - 15 mmol/L [facility] BUN 35(H) 6 - 25 mg/dL [facility] Creatinine 2.36(H) 0.80 - 1.30 mg/dL [facility] Glucose 128 70 - 199 mg/dL [facility] Comment: Interpretive Data Fasting glucose >/= [...] 2022. Calcium 8.7 8.5 - 10.3 mg/dL [facility] Bilirubin, total 1.0 0.1 - 1.2 mg/dL [facility] Protein, pl 6.2(L) 6.5 - 8.5 g/dL [facility] Albumin 3.8 3.5 - 5.0 g/dL [facility] Alk phos 63 40 - 130 Units/L [facility] ALT 13 7 - 55 Units/L [facility] AST 15 10 - 50 Units/L [facility] Blood 09/11/2024 2:32 AM CDT 09/11/2024 2:46 AM CDT us Emory Santana MD LAB BLOOD ORDERABLES Final Result [facility] [address] Department [place] [address] * Differential, auto (08/31/2024 8:12 AM CDT) Neutrophil abs 6.0 1.5 - 6.5 K/cumm Comment:Testing performed by : [facility], [address] [place] [phone] Lymphocyte abs 1.0 0.8 - 3.3 K/cumm [facility] Comment:Testing performed by : [facility], [address] [place] [phone] Monocyte abs 0.6 0.2 - 0.8 K/cumm [facility] Comment:Testing performed by : [facility], [address] [place], [place] [id number] Eosinophil abs 0.3 0.0 - 0.5 K/cumm [facility] Comment:Testing performed by : [facility], [address] [place], [place] [id number] Basophil abs 0.1 0.0 - 0.1 K/cumm [facility] Comment:Testing performed by : [facility], [address] [place] [address] Neutrophil pct 75.2 % [facility] Comment: Interpretive Data Percent cell count reference ranges are not reported, since discordance with absolute values may lead to misinterpretation of CBC data. Current Interpretive Data was last revised on 2017. Testing performed by: [facility], [address] [place] [phone] Lymphocyte pct 12.4 % [facility] Comment: Interpretive Data Percent cell count reference ranges are not reported, since discordance with absolute values may lead to misinterpretation of CBC data. Current Interpretive Data was last revised on 2017. Testing performed by: [facility], [address] [place] [phone] Monocyte pct 7.9 % [facility] Comment: Interpretive Data Percent cell count reference ranges are not reported, since discordance with absolute values may lead to misinterpretation of CBC data. Current Interpretive Data was last revised on 2017. Testing performed by: [facility], [address] [place] [phone] Eosinophil pct 3.9 % [facility] Comment: Interpretive Data Percent cell count reference ranges are not reported, since discordance with absolute values may lead to misinterpretation of CBC data. Current Interpretive Data was last revised on 2017. Testing performed by: [facility], [address] [place] [phone] Basophil pct 0.6 % [facility] Comment: Interpretive Data Percent cell count reference ranges are not reported, since discordance with absolute values may lead to misinterpretation of CBC data. Current Interpretive Data was last revised on 2017. Testing performed by: [facility], [address] [place] [address] Blood 08/31/2024 8:12 AM CDT 08/31/2024 8:16 AM CDT Hermelindo Butler MD LAB BLOOD ORDER ELANA Final Result [facility] Department [place] [address] * (ABNORMAL) CBC with auto differential (08/31/2024 8:12 AM CDT) WBC 8.0 3.8 - 9.9 K/cumm Comment:Testing performed by : [facility], [address] [place] [address] Hgb 12.7(L) 13.0 - 17.5 g/dL [facility] Comment:Testing performed by : [facility], [address] [place] [address] Hct 37.8(L) 38.9 - 50.3 % [facility] Comment:Testing performed by : [facility], [address] [place] [address] Plt 176 150 - 400 K/cumm [facility] Comment:Testing performed by : [facility], [address] [place] [address] MPV 7.7 6.8 - 10.4 fL [facility] Comment:Testing performed by : [facility], [address] [place], [place] [phone] RBC 4.07(L) 4.30 - 5.80 M/cumm [facility] Comment:Testing performed by : [facility], [address] [place], [place] [phone] MCV 92.8 81.3 - 96.4 fL [facility] Comment:Testing performed by : [facility], [address] [place], [place] [phone] MCH 31.2 27.1 - 33.3 pg [facility] Comment:Testing performed by : [facility], [address] [place] [address] MCHC 33.6 32.3 - 35.7 g/dL [facility] Comment:Testing performed by : [facility], [address] [place], [place] [phone] RDW CV 16.1(H) 11.1 - 14.9 % [facility] Comment:Testing performed by : [facility], [address] [place] [address] NRBC abs 0.00 0.00 - 0.01 K/cumm [facility] Comment:Testing performed by : [facility], [address] [place] [address] Blood 08/31/2024 8:12 AM CDT 08/31/2024 8:16 AM CDT Hermelindo Butler MD LAB BLOOD ORDER ELANA Final Result [facility] Department [place] [address] * Type and screen (08/31/2024 8:12 AM CDT) ABO Rh A Positive Yehuda, indirect Negative [facility] Comment:Patient has previous antibody history Blood 08/31/2024 8:12 AM CDT 08/31/2024 8:25 AM CDT Narrative [facility] - 08/31/2024 9:28 AM CDT Has the patient had Daratumumab or Isatuximab in the past 6 months?->Unknown Hermelindo Butler MD LAB BLOOD BANK TEST ORDERABLES Final Result Performing Organization Address [facility] Co de Phone Number [facility] [place] [address] * Immunotyping, serum with interpretation (08/31/2024 8:12 AM CDT) Immunosubtraction Please see comment Comment: NO PARAPROTEIN DETECTED Reviewed and signed by Ivan Sims MD, PhD 09/01/2024 Blood 08/31/2024 8:12 AM CDT 08/31/2024 9:34 AM CDT Hermelindo Butler MD LAB BLOOD ORDER ELANA Final Result Performing Organization Address [facility] Co de Phone Number [facility] Department [place] [address] * (ABNORMAL) eGFR (08/31/2024 8:12 AM CDT) [...] Organization Address City/[facility]/ZIP Co de Phone Number [facility] Department [place] [address] * (ABNORMAL) Immunoglobulin free light chains (08/31/2024 8:12 AM CDT) [place]/Lambda ratio [facility] See Comment 0.26 - 1.65 Comment: Unable to calculate exact result. Interpretive Data The Binding Site FreeLite assay procedure was used. Results from different manufacturers or methods may not be comparable. Serial testing should be performed using the same methods and instrumentation. Current Interpretive Data was last revised on 2023. [place] free light chain [facility] <0.06(L) 0.33 - 1.94 mg/dL [facility] Comment: Interpretive Data The Binding Site FreeLite assay procedure was used. Results from different manufacturers or methods may not be comparable. Serial testing should be performed using the same methods and instrumentation. Current Interpretive Data was last revised on 2023. Lambda free light chain [facility] <0.14(L) 0.57 - 2.63 mg/dL [facility] Comment: Interpretive Data The Binding Site FreeLite assay procedure was used. Results from different manufacturers or methods may not be comparable. Serial testing should be performed using the same methods and instrumentation. Current Interpretive Data was last revised on 2023. Blood 08/31/2024 8:12 AM CDT 08/31/2024 9:34 AM CDT us Hermelindo Butler MD LAB BLOOD ORDER ELANA Final Result [facility] Department [place] [address] * (ABNORMAL) aPTT (08/31/2024 8:12 AM CDT) [facility] aPTT 50(H) 28 - 38 sec Comment: Interpretive Data Heparin therapeutic range: 66.0 - 100.0 seconds. Range based on correlation with therapeutic heparin activity range of 0.3 - 0.7 Units/mL. Current interpretive data was last revised on 2023. Blood 08/31/2024 8:12 AM CDT 08/31/2024 8:41 AM CDT Hermelindo Butler MD LAB BLOOD ORDER ELANA Final Result Performing Organization Address [facility] [place] [address] * Protime-INR (08/31/2024 8:12 AM CDT) [facility] PT 11.4 9.7 - 13.0 sec INR 1.05 0.90 - 1.20 [facility] Comment: Interpretive data Oral anticoagulant therapeutic [...] Organization Address City/[facility] Co de Phone Number [facility] [place] [address] * (ABNORMAL) Protein electrophoresis with reflex, serum with interpretation (08/31/2024 8:12 AM CDT) Pathologist [facility] Protein, sr 6.0(L) 6.2 - 8.2 g/dL Albumin 3.9 3.2 - 5.0 g/dL [facility] Alpha-1 globulin 0.4 0.2 - 0.4 g/dL [facility] Alpha-2 globulin 0.7 0.5 - 1.0 g/dL [facility] Beta-1 globulin 0.5 0.3 - 0.6 g/dL [facility] Beta-2 globulin 0.3 0.2 - 0.6 g/dL [facility] Gamma globulin 0.2(L) 0.5 - 1.7 g/dL [facility] SPEP interp Please see comment [facility] Comment: No apparent monoclonal peak Decreased gamma globulins Electrophoretic pattern appears similar to previous sample 08/24/2024 See immunotyping for further information Reviewed and signed by Iavn Sims MD, PhD 09/01/2024 Blood 08/31/2024 8:12 AM CDT 08/31/2024 9:34 AM CDT Hermelindo Butler MD LAB BLOOD ORDER ELANA Final Result [facility] [place] [place] [address] * Magnesium (08/31/2024 8:12 AM CDT) [facility] Magnesium 1.8 1.4 - 2.5 mg/dL Blood 08/31/2024 8:12 AM CDT 08/31/2024 8:20 AM CDT Hermelindo Butler MD LAB BLOOD ORDER ELANA Final Result [facility] [place] [address] * Lactate dehydrogenase (LD) (08/31/2024 8:12 AM CDT) [facility] Lactate dehydrogenase (LDH) 155 100 - 250 Units/L Blood 08/31/2024 8:12 AM CDT 08/31/2024 8:20 AM CDT us Hermelindo Butler MD LAB BLOOD ORDER ELANA Final Result Performing Organization Address [facility] de Phone Number [facility] [place] [address] * Gamma GT (08/31/2024 8:12 AM CDT) [facility] GGT 27 10 - 50 Units/L Blood 08/31/2024 8:12 AM CDT 08/31/2024 8:20 AM CDT us Hermelindo Butler MD LAB BLOOD ORDER ELANA Final Result Performing Organization Address [facility] de Phone Number [facility] Department [place] [address] * (ABNORMAL) IgA (08/31/2024 8:12 AM CDT) [facility] Immunoglobulin A <50(L) 70 - 400 mg/dL Blood 08/31/2024 8:12 AM CDT 08/31/2024 8:38 AM CDT us Hermelindo Butler MD LAB BLOOD ORDER ELANA Final Result Performing Organization Address [facility] de Phone Number [facility] [place] [address] * (ABNORMAL) IgM (08/31/2024 8:12 AM CDT) [facility] Immunoglobulin M <25(L) 40 - 230 mg/dL Blood 08/31/2024 8:12 AM CDT 08/31/2024 8:38 AM CDT Hermelindo Butler MD LAB BLOOD ORDER ELANA Final Result [facility] [facility] Department [place] [address] * (ABNORMAL) IgG (08/31/2024 8:12 AM CDT) [facility] Immunoglobulin G <300(L) 700 - 1,600 mg/dL Blood 08/31/2024 8:12 AM CDT 08/31/2024 8:38 AM CDT Hermelindo Butler MD LAB BLOOD ORDER ELANA Final Result Performing Organization Address [facility] Co de Phone Number [facility] Department [place] [address] * (ABNORMAL) Comprehensive metabolic panel (08/31/2024 8:12 AM CDT) [facility] Sodium 141 135 - 145 mmol/L Potassium, pl 4.0 3.3 - 4.9 mmol/L [facility] Chloride 103 97 - 110 mmol/L [facility] CO2 29 22 - 32 mmol/L [facility] Anion gap 9 2 - 15 mmol/L [facility] BUN 31(H) 6 - 25 mg/dL [facility] Creatinine 1.61(H) 0.80 - 1.30 mg/dL [facility] Glucose 114 70 - 199 mg/dL [facility] Comment: Interpretive Data Fasting glucose >/= [...] Calcium 9.4 8.5 - 10.3 mg/dL [facility] Bilirubin, total 0.4 0.1 - 1.2 mg/dL [facility] Protein, pl 6.5 6.5 - 8.5 g/dL [facility] Albumin 4.1 3.5 - 5.0 g/dL [facility] Alk phos 65 40 - 130 Units/L [facility] ALT 16 7 - 55 Units/L [facility] AST 15 10 - 50 Units/L [facility] Blood 08/31/2024 8:12 AM CDT 08/31/2024 8:20 AM CDT Hermelindo Butler MD LAB BLOOD ORDER ELANA Final Result [facility] Department [place] [address] * SCAN - LABS (08/30/2024) us Provider [...] MD LAB BLOOD ORDERABLES Final Result [facility] Department [place] [address] * (ABNORMAL) Differential, auto (08/26/2024 12:25 AM CDT) Neutrophil abs 5.3 1.5 - 6.5 K/cumm Imm gran abs 0.0 0.0 - 0.1 K/cumm [facility] Lymphocyte abs 0.7(L) 0.8 - 3.3 K/cumm [facility] Monocyte abs 0.6 0.2 - 0.8 K/cumm [facility] Eosinophil abs 0.3 0.0 - 0.5 K/cumm [facility] Basophil abs 0.0 0.0 - 0.1 K/cumm [facility] Neutrophil pct 75.7 % [facility] Comment: Interpretive Data Percent cell count reference ranges are not reported, since discordance with absolute values may lead to misinterpretation of CBC data. Current Interpretive Data was last revised on 2017. Imm gran pct 0.4 % [facility] Comment: Interpretive Data Percent cell count reference ranges are not reported, since discordance with absolute values may lead to misinterpretation of CBC data. Current Interpretive Data was last revised on 2017. Lymphocyte pct 10.4 % [facility] Comment: Interpretive Data Percent cell count reference ranges are not reported, since discordance with absolute values may lead to misinterpretation of CBC data. Current Interpretive Data was last revised on 2017. Monocyte pct 9.0 % [facility] Comment: Interpretive Data Percent cell count reference ranges are not reported, since discordance with absolute values may lead to misinterpretation of CBC data. Current Interpretive Data was last revised on 2017. Eosinophil pct 4.4 % [facility] Comment: Interpretive Data Percent cell count reference ranges are not reported, since discordance with absolute values may lead to misinterpretation of CBC data. Current Interpretive Data was last revised on 2017. Basophil pct 0.1 % [facility] Comment: Interpretive Data Percent cell count reference ranges are not reported, since discordance with absolute values may lead to misinterpretation of CBC data. Current Interpretive Data was last revised on 2017. Blood 08/26/2024 12:2 5 AM CDT 08/26/2024 12:35 AM CDT Karlos Hargrove MD LAB BLOOD ORDERABLES Final Result [facility] Department [place] [address] * (ABNORMAL) CBC with auto differential (08/26/2024 12:25 AM CDT) WBC 7.0 3.8 - 9.9 K/cumm Hgb 11.8(L) 13.0 - 17.5 g/dL [facility] Hct 35.7(L) 38.9 - 50.3 % [facility] Plt 131(L) 150 - 400 K/cumm [facility] MPV 9.2 9.1 - 12.3 fL [facility] RBC 3.83(L) 4.30 - 5.80 M/cumm [facility] MCV 93.2 81.3 - 96.4 fL [facility] MCH 30.8 27.1 - 33.3 pg [facility] MCHC 33.1 32.3 - 35.7 g/dL [facility] RDW CV 15.4(H) 11.1 - 14.9 % [facility] RDW SD 51.7(H) 35.7 - 48.1 fL [facility] NRBC abs 0.00 0.00 - 0.01 K/cumm [facility] Blood 08/26/2024 12:2 5 AM CDT 08/26/2024 12:35 AM CDT Karlos Hargrove MD LAB BLOOD ORDERABLES Final Result Performing Organization Address [facility] [place] [address] * Type and screen (08/26/2024 12:25 AM CDT) Yehuda, indirect Negative Comment:Patient has previous antibody history ABO Rh A Positive [facility] Blood 08/26/2024 12:2 5 AM CDT 08/26/2024 12:38 AM CDT Narrative [facility] - 08/26/2024 2:23 AM CDT Has the patient had Daratumumab or Isatuximab in the past 6 months?->Unknown Karlos Hargrove MD LAB BLOOD BANK TEST ORDERA BLES Final Result Performing Organization Address [facility] de Phone Number [facility] [place] [address] * (ABNORMAL) Uric acid (08/26/2024 12:25 AM CDT) [facility] Uric acid 8.6(H) 3.0 - 8.0 mg/dL Blood 08/26/2024 12:2 5 AM CDT 08/26/2024 12:35 AM CDT Narrative [facility] - 08/26/2024 1:10 AM CDT Friday and only. Morning draw. . Karlos Hargrove MD LAB BLOOD ORDERABLES Final Result Performing Organization Address [facility] [place] [address] * Phosphorus (08/26/2024 12:25 AM CDT) Phosphorus, pl 3.6 2.3 - 4.5 mg/dL Blood 08/26/2024 12:2 5 AM CDT 08/26/2024 12:35 AM CDT Karlos Hargrove MD LAB BLOOD ORDERABLES Final Result Performing Organization Address City/[facility]/ZIP Co de Phone Number [facility] [place] [address] * Magnesium (08/26/2024 12:25 AM CDT) Pathologist [facility] Magnesium 1.7 1.4 - 2.5 mg/dL Blood 08/26/2024 12:2 5 AM CDT 08/26/2024 12:35 AM CDT Karlos Hargrove MD LAB BLOOD ORDERABLES Final Result Performing Organization Address [facility] de Phone Number [facility] [place] [address] * Lactate dehydrogenase (LD) (08/26/2024 12:25 AM CDT) [facility] Lactate dehydrogenase (LDH) 167 100 - 250 Units/L Blood 08/26/2024 12:2 5 AM CDT 08/26/2024 12:35 AM CDT Narrative [facility] - 08/26/2024 1:10 AM CDT Friday and only. Morning draw. Karlos Hargrove MD LAB BLOOD ORDERABLES Final Result Performing Organization Address [facility] [place] [address] * (ABNORMAL) Comprehensive metabolic panel (08/26/2024 12:25 AM CDT) Pathologist [facility] Sodium 148(H) 135 - 145 mmol/L Potassium, pl 3.4 3.3 - 4.9 mmol/L [facility] Chloride 108 97 - 110 mmol/L [facility] CO2 28 22 - 32 mmol/L [facility] Anion gap 12 2 - 15 mmol/L [facility] BUN 35(H) 6 - 25 mg/dL [facility] Creatinine 2.27(H) 0.80 - 1.30 mg/dL [facility] Glucose 107 70 - 199 mg/dL [facility] Comment: Interpretive Data Fasting glucose >/= [...] Calcium 8.9 8.5 - 10.3 mg/dL [facility] Bilirubin, total 0.6 0.1 - 1.2 mg/dL [facility] Protein, pl 5.9(L) 6.5 - 8.5 g/dL [facility] Albumin 3.7 3.5 - 5.0 g/dL [facility] Alk phos 60 40 - 130 Units/L [facility] ALT 15 7 - 55 Units/L [facility] AST 13 10 - 50 Units/L [facility] Blood 08/26/2024 12:2 5 AM CDT 08/26/2024 12:35 AM CDT us Karlos Hargrove MD LAB BLOOD ORDERABLES Final Result [facility] Department [place] [address] * US Vein Duplex Lower Extremity Bilateral Complete (08/25/2024 9:30 AM CDT) Anatomical Region Laterality Modality Vascular Bilateral Ultrasound 08/25/2024 8:37 AM CDT Narrative 08/27/2024 11:10 AM CDT [facility] - Department of Vascular Surgery, Vascular Laboratory [address] [place] [id number] Lower Extremity Venous Ultrasound Report Patient Name: BUFFY VALLE B : 1950 (73y 8m) Study Date: 08/25/2024 8:37:41 AM Gender: M Tech: Location: [id number] Ref Provider: OLGA KEITH Quality: Adequate Order Provider: OLGA KEITH PROCEDURES: Vascular Report: Venous Duplex imaging was performed bilaterally in the lower extremities. The common femoral, femoral, popliteal, posterior tibial, peroneal veins were evaluated for patency, spontaneity and phasicity with Doppler, compression and augmentation maneuvers. Great saphenous vein proximal at the junction was evaluated with compression maneuvers. INDICATIONS: Localized edema. FINDINGS: Performing Historiography Professor: Farzana Owens RVT. Bilateral: Venous Doppler signals [...] above. Electronically Signed By: Cesar Cabello MD [facility] [phone] 08/27/2024 10:10:26 AM CDT Procedure Note Cesar Cabello MD - 08/27/2024 [facility] - Department of Vascular Surgery,Vascular Laboratory [address] [place] [address] Lower Extremity Venous Ultrasound Report Patient Name: BUFFY VALLE B : 1950 (73y 8m) Study Date: 08/25/2024 8:37:41 AM Gender: M Tech: Location: [id number] Ref Provider: OLGA KEITH Quality: Adequate Order Provider: OLGA KEITH PROCEDURES: Vascular Report: Venous Duplex imaging was performed bilaterally in the lower extremities.The common femoral, femoral, popliteal, posterior tibial, peroneal veins wereevaluated for patency, spontaneity and phasicity with Doppler, compression and augmentationmaneuvers. Great saphenous vein proximal at the junction was evaluated with compressionmaneuvers. INDICATIONS: Localized edema. FINDINGS: Performing Historiography Professor: Farzana Owens RVT. Bilateral: Venous Doppler signals [...] above. Electronically Signed By: Cesar Cabello MD [facility] [phone] 08/27/2024 10:10:26 AM CDT Olga Keith MD [...] glomerular filtration rate is determined by the 2021 CKD-EPI equation recommended by the National Kidney [...] MD LAB BLOOD ORDERABLES Final Result [facility] Department [place] [address] * (ABNORMAL) Differential, auto (08/25/2024 12:34 AM CDT) Neutrophil abs 5.2 1.5 - 6.5 K/cumm Imm gran abs 0.1 0.0 - 0.1 K/cumm [facility] Lymphocyte abs 0.5(L) 0.8 - 3.3 K/cumm [facility] Monocyte abs 0.5 0.2 - 0.8 K/cumm [facility] Eosinophil abs 0.4 0.0 - 0.5 K/cumm [facility] Basophil abs 0.0 0.0 - 0.1 K/cumm [facility] Neutrophil pct 77.6 % [facility] Comment: Interpretive Data Percent cell count reference ranges are not reported, since discordance with absolute values may lead to misinterpretation of CBC data. Current Interpretive Data was last revised on 2017. Imm gran pct 0.7 % [facility] Comment: Interpretive Data Percent cell count reference ranges are not reported, since discordance with absolute values may lead to misinterpretation of CBC data. Current Interpretive Data was last revised on 2017. Lymphocyte pct 7.9 % [facility] Comment: Interpretive Data Percent cell count reference ranges are not reported, since discordance with absolute values may lead to misinterpretation of CBC data. Current Interpretive Data was last revised on 2017. Monocyte pct 7.5 % [facility] Comment: Interpretive Data Percent cell count reference ranges are not reported, since discordance with absolute values may lead to misinterpretation of CBC data. Current Interpretive Data was last revised on 2017. Eosinophil pct 6.0 % [facility] Comment: Interpretive Data Percent cell count reference ranges are not reported, since discordance with absolute values may lead to misinterpretation of CBC data. Current Interpretive Data was last revised on 2017. Basophil pct 0.3 % [facility] Comment: Interpretive Data Percent cell count reference ranges are not reported, since discordance with absolute values may lead to misinterpretation of CBC data. Current Interpretive Data was last revised on 2017. Blood 08/25/2024 12:3 4 AM CDT 08/25/2024 12:57 AM CDT Karlos Hargrove MD LAB BLOOD ORDERABLES Final Result [facility] Department [place] [address] * (ABNORMAL) CBC with auto differential (08/25/2024 12:34 AM CDT) WBC 6.7 3.8 - 9.9 K/cumm Hgb 11.2(L) 13.0 - 17.5 g/dL [facility] Hct 33.3(L) 38.9 - 50.3 % [facility] Plt 136(L) 150 - 400 K/cumm [facility] MPV 9.5 9.1 - 12.3 fL [facility] RBC 3.57(L) 4.30 - 5.80 M/cumm [facility] MCV 93.3 81.3 - 96.4 fL [facility] MCH 31.4 27.1 - 33.3 pg [facility] MCHC 33.6 32.3 - 35.7 g/dL [facility] RDW CV 15.3(H) 11.1 - 14.9 % [facility] RDW SD 51.0(H) 35.7 - 48.1 fL [facility] NRBC abs 0.00 0.00 - 0.01 K/cumm [facility] Blood 08/25/2024 12:3 4 AM CDT 08/25/2024 12:57 AM CDT us Karlos Hargrove MD LAB BLOOD ORDERABLES Final Result Performing Organization Address City/[facility] Co de Phone Number [facility] [place] [place] [address] * Phosphorus (08/25/2024 12:34 AM CDT) Pathologist [facility] Phosphorus, pl 3.7 2.3 - 4.5 mg/dL Blood 08/25/2024 12:3 4 AM CDT 08/25/2024 12:55 AM CDT us Karlos Hargrove MD LAB BLOOD ORDERABLES Final Result Performing Organization Address [facility] de Phone Number [facility] [place] [place] [address] * Magnesium (08/25/2024 12:34 AM CDT) Magnesium 1.9 1.4 - 2.5 mg/dL Blood 08/25/2024 12:3 4 AM CDT 08/25/2024 12:55 AM CDT us Karlos Hargrove MD LAB BLOOD ORDERABLES Final Result Performing Organization Address City/[facility] [place] [address] * (ABNORMAL) Comprehensive metabolic panel (08/25/2024 12:34 AM CDT) Sodium 147(H) 135 - 145 mmol/L Potassium, pl 3.2(L) 3.3 - 4.9 mmol/L [facility] Chloride 109 97 - 110 mmol/L [facility] CO2 26 22 - 32 mmol/L [facility] Anion gap 12 2 - 15 mmol/L [facility] BUN 47(H) 6 - 25 mg/dL [facility] Creatinine 2.74(H) 0.80 - 1.30 mg/dL [facility] Glucose 154 70 - 199 mg/dL [facility] Comment: Interpretive Data Fasting glucose >/= [...] Calcium 8.4(L) 8.5 - 10.3 mg/dL [facility] Bilirubin, total 0.4 0.1 - 1.2 mg/dL [facility] Protein, pl 5.9(L) 6.5 - 8.5 g/dL [facility] Albumin 3.9 3.5 - 5.0 g/dL [facility] Alk phos 61 40 - 130 Units/L [facility] ALT 18 7 - 55 Units/L [facility] AST 17 10 - 50 Units/L [facility] Blood 08/25/2024 12:3 4 AM CDT 08/25/2024 12:55 AM CDT us Karlos Hargrove MD LAB BLOOD ORDERABLES Final Result [facility] Department [place] [address] * Sodium, urine, random (08/24/2024 5:16 PM CDT) Pathologist [facility] Sodium, ur 44 mmol/L Comment: Interpretive Data No reference range established. Current interpretive data was last revised 2018. Urine 08/24/2024 5:16 PM CDT 08/24/2024 5:31 PM CDT us Olga Keith MD LAB URINE ORDERABLES Final Resul t [facility] [place] [address] * CT Abdomen Pelvis WO Contrast (08/24/2024 [...] [facility] Neutrophil pct 73.7 % [facility] Comment: Interpretive Data Percent cell count reference ranges are not reported, since discordance with absolute values may lead to misinterpretation of CBC data. Current Interpretive Data was last revised on 2017. Imm gran pct 0.6 % [facility] Comment: Interpretive Data Percent cell count reference ranges are not reported, since discordance with absolute values may lead to misinterpretation of CBC data. Current Interpretive Data was last revised on 2017. Lymphocyte pct 10.0 % [facility] Comment: Interpretive Data Percent cell count reference ranges are not reported, since discordance with absolute values may lead to misinterpretation of CBC data. Current Interpretive Data was last revised on 2017. Monocyte pct 8.3 % [facility] Comment: Interpretive Data Percent cell count reference ranges are not reported, since discordance with absolute values may lead to misinterpretation of CBC data. Current Interpretive Data was last revised on 2017. Eosinophil pct 7.1 % [facility] Comment: Interpretive Data Percent cell count reference ranges are not reported, since discordance with absolute values may lead to misinterpretation of CBC data. Current Interpretive Data was last revised on 2017. Basophil pct 0.3 % [facility] Comment: Interpretive Data Percent cell count reference ranges are not reported, since discordance with absolute values may lead to misinterpretation of CBC data. Current Interpretive Data was last revised on 2017. Blood 08/24/2024 2:30 AM CDT 08/24/2024 1:28 AM CDT Karlos Hargrove MD LAB BLOOD ORDERABLES Final Result [facility] [place] [address] * (ABNORMAL) CBC with auto differential (08/24/2024 2:30 AM CDT) WBC 6.6 3.8 - 9.9 K/cumm Hgb 10.9(L) 13.0 - 17.5 g/dL [facility] Hct 33.1(L) 38.9 - 50.3 % [facility] Plt 130(L) 150 - 400 K/cumm [facility] MPV 10.0 9.1 - 12.3 fL [facility] RBC 3.50(L) 4.30 - 5.80 M/cumm [facility] MCV 94.6 81.3 - 96.4 fL [facility] MCH 31.1 27.1 - 33.3 pg [facility] MCHC 32.9 32.3 - 35.7 g/dL [facility] RDW CV 15.3(H) 11.1 - 14.9 % [facility] RDW SD 51.8(H) 35.7 - 48.1 fL [facility] NRBC abs 0.00 0.00 - 0.01 K/cumm [facility] Blood 08/24/2024 2:30 AM CDT 08/24/2024 1:28 AM CDT us Karlos Hargrove MD LAB BLOOD ORDERABLES Final Result Performing Organization Address City/[facility] Co de Phone Number [facility] [place] [address] * (ABNORMAL) eGFR (08/24/2024 1:12 AM CDT) [...] Organization Address [facility] Co de Phone Number [facility] Department [place] [address] * aPTT (08/24/2024 1:12 AM CDT) aPTT [...] Organization Address [facility] de Phone Number [facility] [place] [address] * Protime-INR (08/24/2024 1:12 AM CDT) PT 11.7 9.7 - 13.0 sec INR 1.08 0.90 - 1.20 [facility] Comment: Interpretive data Oral anticoagulant therapeutic ranges: Venous thromboembolism prophylaxis or treatment: 2.0-3.0 CARDIOLOGY Standard range: 2.0-3.0 High-intensity range: 2.5-3.5 Refer to indication-specific guidelines for appropriate target ranges for prosthetic heart valve replacement. Current interpretive data was last revised on 2019. Blood 08/24/2024 1:1 2 AM CDT 08/24/2024 1:53 AM CDT Result [facility] Karlos Hargrove MD LAB BLOOD ORDERABLES Final Result Performing Organization Address [facility] de Phone Number [facility] [place] [address] * Type and screen (08/24/2024 1:12 AM CDT) Yehuda, indirect Negative Comment:Patient has previous antibody history ABO Rh A Positive [facility] Blood 08/24/2024 1:12 AM CDT 08/24/2024 1:36 AM CDT N[facility]ative [facility] - 08/24/2024 2:36 AM CDT Has the patient had Daratumumab or Isatuximab in the past 6 months?->Unknown us Karlos Hargrove MD LAB BLOOD BANK TEST ORDERA BLES Final Result Performing Organization Address [facility] [place] [address] * (ABNORMAL) Uric acid (08/24/2024 1:12 AM CDT) Uric acid 9.5(H) 3.0 - 8.0 mg/dL Blood 08/24/2024 1:12 AM CDT 08/24/2024 1:35 AM CDT Narrative [facility] - 08/24/2024 2:47 AM CDT Friday and only. Morning draw. . us Karlos Hargrove MD LAB BLOOD ORDERABLES Final Result Performing Organization Address [facility] CENTER Co de Phone Number [facility] [place] [address] * Phosphorus (08/24/2024 1:12 AM CDT) Phosphorus, pl 4.5 2.3 - 4.5 mg/dL Blood 08/24/2024 1:12 AM CDT 08/24/2024 1:35 AM CDT us Karlos Hargrove MD LAB BLOOD ORDERABLES Final Result Performing Organization Address [facility] Co de Phone Number [facility] [place] [address] * Magnesium (08/24/2024 1:12 AM CDT) Magnesium 2.0 1.4 - 2.5 mg/dL Blood 08/24/2024 1:12 AM CDT 08/24/2024 1:35 AM CDT us Karlos Hargrove MD LAB BLOOD ORDERABLES Final Result Performing Organization Address [facility] Co de Phone Number [facility] Department [place] [address] * Lactate dehydrogenase (LD) (08/24/2024 1:12 AM CDT) [facility] Lactate dehydrogenase (LDH) 226 100 - 250 Units/L Blood 08/24/2024 1:12 AM CDT 08/24/2024 1:35 AM CDT Narrative [facility] - 08/24/2024 2:47 AM CDT Friday and only. Morning draw. Karlos Hargrove MD LAB BLOOD ORDERABLES Final Result Performing Organization Address [facility] de Phone Number [facility] [place] [address] * (ABNORMAL) Comprehensive metabolic panel (08/24/2024 1:12 AM CDT) [facility] Sodium 148(H) 135 - 145 mmol/L Potassium, pl 3.6 3.3 - 4.9 mmol/L [facility] Chloride 111(H) 97 - 110 mmol/L [facility] CO2 25 22 - 32 mmol/L [facility] Anion gap 12 2 - 15 mmol/L [facility] BUN 56(H) 6 - 25 mg/dL [facility] Creatinine 3.16(H) 0.80 - 1.30 mg/dL [facility] Glucose 102 70 - 199 mg/dL [facility] Comment: Interpretive Data Fasting glucose >/= [...] Calcium 8.5 8.5 - 10.3 mg/dL [facility] Bilirubin, total 0.4 0.1 - 1.2 mg/dL [facility] Protein, pl 5.7(L) 6.5 - 8.5 g/dL [facility] Albumin 3.6 3.5 - 5.0 g/dL [facility] Alk phos 62 40 - 130 Units/L [facility] ALT 16 7 - 55 Units/L [facility] AST 11 10 - 50 Units/L [facility] Blood 08/24/2024 1:12 AM CDT 08/24/2024 1:35 AM CDT Karlos Hargrove MD LAB BLOOD ORDERABLES Final Result [facility] Department [place] [address] * US Kidney Complete (08/23/2024 8:12 PM [...] by: Qian Barnes M.D. us Kinga Jones MOTOR VEHICLE REPRESENTATIVE IMG US PROCEDURES Final R esult * (ABNORMAL) Urinalysis reflex to microscopic (08/23/2024 7:01 PM CDT) Color, ur Straw Yellow Clarity, ur Clear Clear [facility] Specific gravity, ur 1.011 1.003 - 1.030 [facility] pH, urine 5.5 [facility] Comment: Interpretive Data U rine pH is affected by diet, medications, systemic acid-base disturbances, and renal tubular function. pH may affect urinary stone formation. For example, urine pH below 6.0 may help reduce the tendency for calcium phosphate stones and pH greater than 6.0 may reduce the tendency for uric acid stone formation. Source: [employer] Current Interpretive Data was last revised on 2017 Protein, ur ql Negative Negative [facility] Glucose, ur ql Negative Negative [facility] Ketones, ur Negative Negative [facility] Bilirubin, ur Negative Negative [facility] Blood, ur 2+(A) Negative [facility] Urobilinogen, ur <2.0 <2.0 mg/dL [facility] Nitrite, ur Negative Negative [facility] Leukocyte esterase, ur Trace(A) Negative [facility] UA reflex comment Reflex to microscopic UA will be performed. [facility] Urine 08/23/2024 7:01 PM CDT 08/23/2024 7:15 PM CDT Kinga Jones NP LAB URINE ORDERABLES [place] l Result Performing Organization Address [facility] Co de Phone Number [facility] [place] [address] * Protein / creatinine ratio, urine, random (08/23/2024 7:01 PM CDT) Protein, ur, quant 6.4 mg/dL Comment: Interpretive Data No reference range established. Current interpretive data was last revised 2018. Creatinine Ur 74.0 mg/dL [facility] Comment: Interpretive Data No reference range established. Current interpretive data was last revised 2018. Protein/creatinin e ratio 86.5 0.0 - 180.0 mg/g CR [facility] Urine 08/23/2024 7:01 PM CDT 08/23/2024 7:28 PM CDT Kinga Jones NP LAB URINE ORDERABLES [place] l Result Performing Organization Address [facility] de Phone Number [facility] [place] [address] * (ABNORMAL) Urinalysis, microscopic only (08/23/2024 7:01 PM CDT) Pathologist [facility] [place] WBC, ur 0-5 0 - 5 /HPF RBC, ur 6-10(A) 0 - 2 /HPF [facility] Urine 08/23/2024 7:01 PM CDT 08/23/2024 7:15 PM CDT Kinga Jones NP LAB URINE ORDERABLES [place] l Result Performing Organization Address City/[facility]/ZIP Co de Phone Number [facility] [place] [address] * Urine culture Urine, clean voided (08/23/2024 7:01 PM CDT) Pathologist [facility] [place] Report Final Report: Less than 100,000 colonies/mL (clinically insignificant growth based on current clinical standards) Organism (CLINICALLY INSIGNIFICANT GROWTH [facility] Urine, clean voided 08/23/2024 7:01 PM CDT 08/23/2024 8:52 PM CDT Narrative [facility] - 08/25/2024 8:02 AM CDT Indications for Culture:->Other (specify) Other Indication:->elevated creatinine Specimen received in a sterile container. Testing performed by [facility] ([phone]) Kinga Jones NP LAB MICROBIOLOGY - GENERA L ORDERABLES Final Result Performing Organization Address City/[facility]/ZIP Co de Phone Number [facility] Department [place] [address] * Immunotyping, serum with interpretation (08/23/2024 6:04 PM CDT) [facility] Immunosubtraction Please see comment Comment: NO PARAPROTEIN DETECTED Reviewed and signed by Fernando Nunez MD, PhD 08/24/2024 Blood 08/23/2024 6:04 PM CDT 08/23/2024 6:13 PM CDT us Hermelindo Butler MD LAB BLOOD ORDER ELANA Final Result [facility] [place] [address] * (ABNORMAL) eGFR (08/23/2024 6:04 PM CDT) [facility] eGFR 19(L) >=60 mL/min/1. 73 m2 Comment: [...] LAB BLOOD ORDER ELANA Final Result [facility] Department [place] [address] * (ABNORMAL) Differential, auto (08/23/2024 6:04 PM CDT) Neutrophil abs 6.5 1.5 - 6.5 K/cumm Imm gran abs 0.0 0.0 - 0.1 K/cumm [facility] Lymphocyte abs 0.7(L) 0.8 - 3.3 K/cumm [facility] Monocyte abs 0.6 0.2 - 0.8 K/cumm [facility] Eosinophil abs 0.6(H) 0.0 - 0.5 K/cumm [facility] Basophil abs 0.0 0.0 - 0.1 K/cumm [facility] Neutrophil pct 77.0 % [facility] Comment: Interpretive Data Percent cell count reference ranges are not reported, since discordance with absolute values may lead to misinterpretation of CBC data. Current Interpretive Data was last revised on 2017. Imm gran pct 0.5 % [facility] Comment: Interpretive Data Percent cell count reference ranges are not reported, since discordance with absolute values may lead to misinterpretation of CBC data. Current Interpretive Data was last revised on 2017. Lymphocyte pct 8.3 % [facility] Comment: Interpretive Data Percent cell count reference ranges are not reported, since discordance with absolute values may lead to misinterpretation of CBC data. Current Interpretive Data was last revised on 2017. Monocyte pct 7.3 % [facility] Comment: Interpretive Data Percent cell count reference ranges are not reported, since discordance with absolute values may lead to misinterpretation of CBC data. Current Interpretive Data was last revised on 2017. Eosinophil pct 6.5 % [facility] Comment: Interpretive Data Percent cell count reference ranges are not reported, since discordance with absolute values may lead to misinterpretation of CBC data. Current Interpretive Data was last revised on 2017. Basophil pct 0.4 % [facility] Comment: Interpretive Data Percent cell count reference ranges are not reported, since discordance with absolute values may lead to misinterpretation of CBC data. Current Interpretive Data was last revised on 2017. Blood 08/23/2024 6:04 PM CDT 08/23/2024 6:12 PM CDT Hermelindo Butler MD LAB BLOOD ORDER ELANA Final Result [facility] Department [place] [address] * (ABNORMAL) Immunoglobulin free light chains (08/23/2024 6:04 PM CDT) Needmore/Lambda ratio [facility] <0.40 0.26 - 1.65 Comment: Interpretive Data The Binding Site FreeLite assay procedure was used. Results from different manufacturers or methods may not be comparable. Serial testing should be performed using the same methods and instrumentation. Current Interpretive Data was last revised on 2023. [place]more free light chain [facility] <0.06(L) 0.33 - 1.94 mg/dL [facility] Comment: Interpretive Data The Binding Site FreeLite assay procedure was used. Results from different manufacturers or methods may not be comparable. Serial testing should be performed using the same methods and instrumentation. Current Interpretive Data was last revised on 2023. Lambda free light chain [facility] 0.15(L) 0.57 - 2.63 mg/dL [facility] Comment: Interpretive Data The Binding Site FreeLite assay procedure was used. Results from different manufacturers or methods may not be comparable. Serial testing should be performed using the same methods and instrumentation. Current Interpretive Data was last revised on 2023. Blood 08/23/2024 6:04 PM CDT 08/23/2024 6:12 PM CDT Hermelindo Butler MD LAB BLOOD ORDER ELANA Final Result [facility] Department [place] [address] * (ABNORMAL) CBC with auto differential (08/23/2024 6:04 PM CDT) WBC 8.5 3.8 - 9.9 K/cumm Hgb 11.8(L) 13.0 - 17.5 g/dL [facility] Hct 35.6(L) 38.9 - 50.3 % [facility] Plt 131(L) 150 - 400 K/cumm [facility] MPV 9.8 9.1 - 12.3 fL [facility] RBC 3.78(L) 4.30 - 5.80 M/cumm [facility] MCV 94.2 81.3 - 96.4 fL [facility] MCH 31.2 27.1 - 33.3 pg [facility] MCHC 33.1 32.3 - 35.7 g/dL [facility] RDW CV 15.2(H) 11.1 - 14.9 % [facility] RDW SD 51.2(H) 35.7 - 48.1 fL [facility] NRBC abs 0.00 0.00 - 0.01 K/cumm [facility] Blood 08/23/2024 6:04 PM CDT 08/23/2024 6:12 PM CDT Hermelindo Butler MD LAB BLOOD ORDER ELANA Final Result [facility] Department [place] [address] * (ABNORMAL) Uric acid (08/23/2024 6:04 PM CDT) Pathologist [facility] [place] Uric acid 9.5(H) 3.0 - 8.0 mg/dL Blood 08/23/2024 6:04 PM CDT 08/23/2024 6:13 PM CDT Hermelindo Butler MD LAB BLOOD ORDER ELANA Final Result Performing Organization Address [facility] de Phone Number [facility] Department [place] [address] * (ABNORMAL) Protein electrophoresis with reflex, serum with interpretation (08/23/2024 6:04 PM CDT) Pathologist [facility] [place] Protein, sr 5.9(L) 6.2 - 8.2 g/dL Albumin 3.9 3.2 - 5.0 g/dL [facility] Alpha-1 globulin 0.4 0.2 - 0.4 g/dL [facility] Alpha-2 globulin 0.7 0.5 - 1.0 g/dL [facility] Beta-1 globulin 0.4 0.3 - 0.6 g/dL [facility] Beta-2 globulin 0.3 0.2 - 0.6 g/dL [facility] Gamma globulin 0.2(L) 0.5 - 1.7 g/dL [facility] SPEP interp Please see comment [facility] Comment: No apparent monoclonal peak Decreased gamma globulins Electrophoretic pattern appears similar to previous sample 08/04/24 See immunotyping for further information Reviewed and signed by Fernando Nunez MD, PhD 08/24/2024 Blood 08/23/2024 6:04 PM CDT 08/23/2024 6:13 PM CDT Hermelindo Butler MD LAB BLOOD ORDER ELANA Final Result Performing Organization Address [facility] Co de Phone Number [facility] [place] [address] * (ABNORMAL) Phosphorus (08/23/2024 6:04 PM CDT) Phosphorus, pl 4.7(H) 2.3 - 4.5 mg/dL Blood 08/23/2024 6:04 PM CDT 08/23/2024 6:13 PM CDT Hermelindo Butler MD LAB BLOOD ORDER ELANA Final Result Performing Organization Address [facility] de Phone Number [facility] Department [place] [address] * Magnesium (08/23/2024 6:04 PM CDT) Pathologist [facility] [place] Magnesium 1.9 1.4 - 2.5 mg/dL Blood 08/23/2024 6:04 PM CDT 08/23/2024 6:13 PM CDT Hermelindo Butler MD LAB BLOOD ORDER ELANA Final Result Performing Organization Address City/[facility] de Phone Number [facility] [place] [address] * Lactate dehydrogenase (LD) (08/23/2024 6:04 PM CDT) Lactate dehydrogenase (LDH) 198 100 - 250 Units/L Blood 08/23/2024 6:04 PM CDT 08/23/2024 6:13 PM CDT Hermelindo Butler MD LAB BLOOD ORDER ELANA Final Result Performing Organization Address City/[facility] de Phone Number [facility] Department [place] [address] * (ABNORMAL) IgA (08/23/2024 6:04 PM CDT) Immunoglobulin A <50(L) 70 - 400 mg/dL Blood 08/23/2024 6:04 PM CDT 08/23/2024 6:13 PM CDT Hermelindo Butler MD LAB BLOOD ORDER ELANA Final Result Performing Organization Address [facility] de Phone Number [facility] [place] [address] * (ABNORMAL) IgM (08/23/2024 6:04 PM CDT) Immunoglobulin M <25(L) 40 - 230 mg/dL Blood 08/23/2024 6:04 PM CDT 08/23/2024 6:13 PM CDT us Hermelindo Butler MD LAB BLOOD ORDER ELANA Final Result Performing Organization Address [facility] de Phone Number [facility] Department [place] [address] * (ABNORMAL) IgG (08/23/2024 6:04 PM CDT) Immunoglobulin G <300(L) 700 - 1,600 mg/dL Blood 08/23/2024 6:04 PM CDT 08/23/2024 6:13 PM CDT Hermelindo Butler MD LAB BLOOD ORDER ELANA Final Result [facility] Department [place] [address] * (ABNORMAL) Comprehensive metabolic panel (08/23/2024 6:04 PM CDT) Sodium 146(H) 135 - 145 mmol/L Potassium, pl 3.8 3.3 - 4.9 mmol/L [facility] Chloride 107 97 - 110 mmol/L [facility] CO2 26 22 - 32 mmol/L [facility] Anion gap 13 2 - 15 mmol/L [facility] BUN 58(H) 6 - 25 mg/dL [facility] Creatinine 3.37(H) 0.80 - 1.30 mg/dL [facility] Glucose 89 70 - 199 mg/dL [facility] Comment: Interpretive Data Fasting glucose >/= [...] Calcium 8.9 8.5 - 10.3 mg/dL [facility] Bilirubin, total 0.4 0.1 - 1.2 mg/dL [facility] Protein, pl 6.2(L) 6.5 - 8.5 g/dL [facility] Albumin 4.0 3.5 - 5.0 g/dL [facility] Alk phos 68 40 - 130 Units/L [facility] ALT 16 7 - 55 Units/L [facility] AST 12 10 - 50 Units/L [facility] Blood 08/23/2024 6:04 PM CDT 08/23/2024 6:13 PM CDT us Hermelindo Butler MD LAB BLOOD ORDER ELANA Final Result [facility] Department [place] [address] * SCAN - LABS (08/20/2024) us Provider Scanning Final Result * SCAN - LABS (08/10/2024) us Provider Scanning Final Result * US Kidney Complete (08/06/2024 2:42 PM ENVIRONMENTAL ENGINEERING MANAGER) Anatomical Region Laterality Modality Kidney N/A Ultrasound 08/06/2024 3:27 PM ENVIRONMENTAL ENGINEERING MANAGER Impressions 08/06/2024 3:27 PM ENVIRONMENTAL ENGINEERING MANAGER 1. Mild nephromegaly with mild to moderate hydronephrosis bilaterally. 2. Incomplete bladder emptying with post void bladder residual of 397 mL. Electronically signed by: Dylan Tinajero M.D. Narrative 08/06/2024 3:27 PM ENVIRONMENTAL ENGINEERING MANAGER EXAMINATION: COMPLETE RENAL SONOGRAM HISTORY: Rising creatinine. [...] by: Dylan Tinajero M.D. Hermelindo Butler MD [facility] PROCEDUR ES Final Result * (ABNORMAL) Urinalysis reflex to microscopic (08/06/2024 9:19 AM ENVIRONMENTAL ENGINEERING MANAGER) Color, ur Straw Yellow Clarity, ur Clear Clear [facility] Specific gravity, ur 1.013 1.003 - 1.030 [facility] pH, urine 5.5 [facility] Comment: Interpretive Data U rine pH is affected by diet, medications, systemic acid-base disturbances, and renal tubular function. pH may affect urinary stone formation. For example, urine pH below 6.0 may help reduce the tendency for calcium phosphate stones and pH greater than 6.0 may reduce the tendency for uric acid stone formation. Source: [facility] Current Interpretive Data was last revised on 2017 Protein, ur ql Negative Negative [facility] Glucose, ur ql Negative Negative [facility] Ketones, ur Negative Negative [facility] Bilirubin, ur Negative Negative [facility] Blood, ur 3+(A) Negative [facility] Urobilinogen, ur <2.0 <2.0 mg/dL [facility] Nitrite, ur Negative Negative [facility] Leukocyte esterase, ur Trace(A) [facility] UA reflex comment Reflex to microscopic UA will be performed. [facility] Urine 08/06/2024 9:19 AM ENVIRONMENTAL ENGINEERING MANAGER 08/06/2024 9:19 AM ENVIRONMENTAL ENGINEERING MANAGER Lyndsey Fagan MOTOR VEHICLE REPRESENTATIVE LAB URINE ORDERABLES [place] nicole Result [facility] [place] [address] * Protein / creatinine ratio, urine, random (08/06/2024 9:19 AM ENVIRONMENTAL ENGINEERING MANAGER) Protein, ur, quant 7.9 mg/dL Comment: Interpretive Data No reference range established. Current interpretive data was last revised 2018. Creatinine Ur 77.4 mg/dL [facility] Comment: Interpretive Data No reference range established. Current interpretive data was last revised 2018. Protein/creatinin e ratio 102.1 0.0 - 180.0 mg/g CR [facility] Urine 08/06/2024 9:19 AM ENVIRONMENTAL ENGINEERING MANAGER 08/06/2024 9:41 AM ENVIRONMENTAL ENGINEERING MANAGER Lyndsey Fagan LAB URINE ORDERABLES [place] l Result Performing Organization Address [facility] Co de Phone Number [facility] [place] [address] * (ABNORMAL) Urinalysis, microscopic only (08/06/2024 9:19 AM ENVIRONMENTAL ENGINEERING MANAGER) WBC, ur 6-10(A) 0 - 5 /HPF RBC, ur 21-50(A) 0 - 2 /HPF [facility] Bacteria, ur Trace(A) [facility] Mucous, ur Present(A) [facility] Urine 08/06/2024 9:19 AM ENVIRONMENTAL ENGINEERING MANAGER 08/06/2024 9:19 AM ENVIRONMENTAL ENGINEERING MANAGER Lyndsey Fagan MOTOR VEHICLE REPRESENTATIVE LAB URINE ORDERABLES [place] l Result Performing Organization Address [facility] Co de Phone Number [facility] [place] [address] * (ABNORMAL) eGFR (08/06/2024 7:43 AM ENVIRONMENTAL ENGINEERING MANAGER) eGFR 31(L) >=60 mL/min/1. 73 m2 Comment: [...] last reviewed 2021. Blood 08/06/2024 7:43 AM ENVIRONMENTAL ENGINEERING MANAGER 08/06/2024 7:52 AM ENVIRONMENTAL ENGINEERING MANAGER us Hermelindo Butler MD LAB BLOOD ORDER ELANA Final Result [facility] Department [place] [address] * (ABNORMAL) Differential, auto (08/06/2024 7:43 AM ENVIRONMENTAL ENGINEERING MANAGER) Neutrophil abs 5.4 1.5 - 6.5 K/cumm Comment:Testing performed by : [facility], [address] [place], [place] [phone] Lymphocyte abs 0.8 0.8 - 3.3 K/cumm [facility] Comment:Testing performed by : [facility], [address] [place], [place] [phone] Monocyte abs 0.5 0.2 - 0.8 K/cumm [facility] Comment:Testing performed by : [facility], [address] [place] [phone] Eosinophil abs 0.7(H) 0.0 - 0.5 K/cumm [facility] Comment:Testing performed by : [facility], [address] [place] [address] Basophil abs 0.0 0.0 - 0.1 K/cumm [facility] Comment:Testing performed by : [facility], [address] [place] [phone] Neutrophil pct 72.4 % CERNER BJ Comment: Interpretive Data Percent cell count reference ranges are not reported, since discordance with absolute values may lead to misinterpretation of CBC data. Current Interpretive Data was last revised on 2017. Testing performed by: [facility], [address] [place] [phone] Lymphocyte pct 10.4 % CERNER BJ Comment: Interpretive Data Percent cell count reference ranges are not reported, since discordance with absolute values may lead to misinterpretation of CBC data. Current Interpretive Data was last revised on 2017. Testing performed by: [facility], [address] [place] [phone] Monocyte pct 7.3 % CERNER BJ Comment: Interpretive Data Percent cell count reference ranges are not reported, since discordance with absolute values may lead to misinterpretation of CBC data. Current Interpretive Data was last revised on 2017. Testing performed by: [facility], [address] [place] [phone] Eosinophil pct 9.4 % CERNER BJ Comment: Interpretive Data Percent cell count reference ranges are not reported, since discordance with absolute values may lead to misinterpretation of CBC data. Current Interpretive Data was last revised on 2017. Testing performed by: [facility], [address] [place] [phone] Basophil pct 0.5 % CERNER BJ Comment: Interpretive Data Percent cell count reference ranges are not reported, since discordance with absolute values may lead to misinterpretation of CBC data. Current Interpretive Data was last revised on 2017. Testing performed by: [facility], [address] [place] [phone] Blood 08/06/2024 7:43 AM ENVIRONMENTAL ENGINEERING MANAGER 08/06/2024 7:51 AM ENVIRONMENTAL ENGINEERING MANAGER us Hermelindo Butler MD LAB BLOOD ORDER ELANA Final Result [place] [facility] Department [place] [address] * (ABNORMAL) CBC with auto differential (08/06/2024 7:43 AM ENVIRONMENTAL ENGINEERING MANAGER) WBC 7.5 3.8 - 9.9 K/cumm Comment:Testing performed by : [facility], [address] [place] [address] Hgb 13.7 13.0 - 17.5 g/dL CERNER BJ Comment:Testing performed by : [facility], [address] [place] [address] Hct 40.6 38.9 - 50.3 % CERNER BJ Comment:Testing performed by : [facility], [address] [place] [address] Plt 169 150 - 400 K/cumm CERNER BJ Comment:Testing performed by : [facility], [address] [place] [address] MPV 7.5 6.8 - 10.4 fL CERNER BJ Comment:Testing performed by : [facility], [address] [place] [address] RBC 4.37 4.30 - 5.80 M/cumm CERNER BJ Comment:Testing performed by : [facility], [address] [place] [address] MCV 92.7 81.3 - 96.4 fL CERNER BJ Comment:Testing performed by : [facility], [address] [place] [address] MCH 31.3 27.1 - 33.3 pg CERNER BJ Comment:Testing performed by : [facility], [address] [place] [address] MCHC 33.8 32.3 - 35.7 g/dL CERNER BJ Comment:Testing performed by : [facility], [address] [place] [address] RDW CV 16.5(H) 11.1 - 14.9 % CERNER BJ Comment:Testing performed by : [facility], [address] [place] [phone] NRBC abs 0.00 0.00 - 0.01 K/cumm [facility] Comment:Testing performed by : [facility], [address] [place] [phone] Blood 08/06/2024 7:43 AM ENVIRONMENTAL ENGINEERING MANAGER 08/06/2024 7:51 AM ENVIRONMENTAL ENGINEERING MANAGER Hermelindo Butler MD LAB BLOOD ORDER ELANA Final Result Performing Organization Address [facility] Co de Phone Number [facility] Department [place] [address] * (ABNORMAL) PSA diagnostic (08/06/2024 7:43 AM ENVIRONMENTAL ENGINEERING MANAGER) PSA-Total 6.28(H) <=6.20 ng/mL Comment: Interpretive Data [...] last revised 21. Blood 08/06/2024 7:43 AM ENVIRONMENTAL ENGINEERING MANAGER 08/06/2024 7:52 AM ENVIRONMENTAL ENGINEERING MANAGER Hermelindo Butler MD LAB BLOOD ORDER ELANA Final Result Performing Organization Address [facility] Co de Phone Number [facility] Department [place] [address] * Lactate dehydrogenase (LD) (08/06/2024 7:43 AM ENVIRONMENTAL ENGINEERING MANAGER) Lactate dehydrogenase (LDH) 161 100 - 250 Units/L Blood 08/06/2024 7:43 AM ENVIRONMENTAL ENGINEERING MANAGER 08/06/2024 7:52 AM ENVIRONMENTAL ENGINEERING MANAGER us Hermelindo Butler MD LAB BLOOD ORDER ELANA Final Result [place] [facility] Department [place] [address] * (ABNORMAL) Lipid panel (08/06/2024 7:43 AM ENVIRONMENTAL ENGINEERING MANAGER) Cholesterol 128 30 - 199 mg/dL Comment: [...] on 2018. Triglycerides 149 <=149 mg/dL [place] [facility] Comment: Interpretive Data Ages [...] 2018. LDL, calculated 64 <=129 mg/dL [place] [facility] Comment: Interpretive Data Ages < or [...] on 2024. Non-HDL Cholesterol 90 mg/dL [facility] Comment: Interpretive Data Ages < or [...] last revised on 2018. Chol/HDL ratio 3 [facility] Blood 08/06/2024 7:43 AM ENVIRONMENTAL ENGINEERING MANAGER 08/06/2024 7:52 AM ENVIRONMENTAL ENGINEERING MANAGER us Hermelindo Butler MD LAB BLOOD ORDER ELANA Final Result [facility] Department [place] [address] * (ABNORMAL) Comprehensive metabolic panel (08/06/2024 7:43 AM ENVIRONMENTAL ENGINEERING MANAGER) Sodium 145 135 - 145 mmol/L Potassium, pl 4.2 3.3 - 4.9 mmol/L [facility] Chloride 108 97 - 110 mmol/L [facility] CO2 30 22 - 32 mmol/L [facility] Anion gap 7 2 - 15 mmol/L [facility] BUN 51(H) 6 - 25 mg/dL [facility] Creatinine 2.21(H) 0.80 - 1.30 mg/dL [facility] Glucose 113 70 - 199 mg/dL [facility] Comment: Interpretive Data Fasting glucose >/= [...] Calcium 9.2 8.5 - 10.3 mg/dL [facility] Bilirubin, total 0.5 0.1 - 1.2 mg/dL [facility] Protein, pl 6.2(L) 6.5 - 8.5 g/dL [facility] Albumin 4.1 3.5 - 5.0 g/dL [facility] Alk phos 61 40 - 130 Units/L [facility] ALT 15 7 - 55 Units/L [facility] AST 16 10 - 50 Units/L [facility] Blood 08/06/2024 7:43 AM ENVIRONMENTAL ENGINEERING MANAGER 08/06/2024 7:52 AM ENVIRONMENTAL ENGINEERING MANAGER us Hermelindo Butler MD LAB BLOOD ORDER ELANA Final Result [facility] Department [place] [address] * aPTT (08/03/2024 9:21 AM ENVIRONMENTAL ENGINEERING MANAGER) Pathologist [facility] aPTT 31 28 - 38 sec Comment: Interpretive Data Heparin therapeutic range: 66.0 - 100.0 seconds. Range based on correlation with therapeutic heparin activity range of 0.3 - 0.7 Units/mL. Current interpretive data was last revised on 2023. Blood 08/03/2024 9:21 AM ENVIRONMENTAL ENGINEERING MANAGER 08/03/2024 9:47 AM ENVIRONMENTAL ENGINEERING MANAGER Hermelindo Butler MD LAB BLOOD ORDER ELANA Final Result Performing Organization Address [facility] [place] [place] [address] * Protime-INR (08/03/2024 9:21 AM ENVIRONMENTAL ENGINEERING MANAGER) Pathologist [facility] [place] PT 11.5 9.7 - 13.0 sec INR 1.06 0.90 - 1.20 [facility] Comment: Interpretive data Oral anticoagulant therapeutic ranges: Venous thromboembolism prophylaxis or treatment: 2.0-3.0 CARDIOLOGY Standard range: 2.0-3.0 High-intensity range: 2.5-3.5 Refer to indication-specific guidelines for appropriate target ranges for prosthetic heart valve replacement. Current interpretive data was last revised on 2019. Blood 08/03/2024 9:21 AM ENVIRONMENTAL ENGINEERING MANAGER 08/03/2024 9:47 AM ENVIRONMENTAL ENGINEERING MANAGER Hermelindo Butler MD LAB BLOOD ORDER ELANA Final Result Performing Organization Address City/[facility]/[place] [address] * Immunotyping, serum with interpretation (08/03/2024 7:40 AM ENVIRONMENTAL ENGINEERING MANAGER) Pathologist [facility] [place] Immunosubtraction Please see comment Comment: NO PARAPROTEIN DETECTED Reviewed and signed by Hermelindo Mcnulty MD 08/04/2024 Blood 08/03/2024 7:40 AM ENVIRONMENTAL ENGINEERING MANAGER 08/03/2024 8:24 AM ENVIRONMENTAL ENGINEERING MANAGER Hermelindo Butler MD LAB BLOOD ORDER ELANA Final Result Performing Organization Address City/[facility] Co de Phone Number [facility] [place] [address] * (ABNORMAL) eGFR (08/03/2024 7:40 AM ENVIRONMENTAL ENGINEERING MANAGER) eGFR 37(L) >=60 mL/min/1. 73 m2 Comment: [...] last reviewed 2021. Blood 08/03/2024 7:40 AM ENVIRONMENTAL ENGINEERING MANAGER 08/03/2024 7:49 AM ENVIRONMENTAL ENGINEERING MANAGER us Hermelindo Butler MD LAB BLOOD ORDER ELANA Final Result Performing Organization Address City/[facility]/ZIP Co de Phone Number [facility] Department [place] [address] * (ABNORMAL) Differential, auto (08/03/2024 7:40 AM ENVIRONMENTAL ENGINEERING MANAGER) Neutrophil abs 5.6 1.5 - 6.5 K/cumm Comment:Testing performed by : [facility], [address] [place] [phone] Lymphocyte abs 0.9 0.8 - 3.3 K/cumm CERNER BJH Comment:Testing performed by : [facility], [address] [place] [phone] Monocyte abs 0.6 0.2 - 0.8 K/cumm CERNER [facility] Comment:Testing performed by : [facility], [address] [place], [place] [id number] Eosinophil abs 0.8(H) 0.0 - 0.5 K/cumm CERNER [facility] Comment:Testing performed by : [facility], [address] [place], [place] [phone] Basophil abs 0.0 0.0 - 0.1 K/cumm CERNER [facility]JH Comment:Testing performed by : [facility], [address] [place], [place] [phone] Neutrophil pct 70.4 % CERNER [facility] Comment: Interpretive Data Percent cell count reference ranges are not reported, since discordance with absolute values may lead to misinterpretation of CBC data. Current Interpretive Data was last revised on 2017. Testing performed by: [facility], [address] [place] [phone] Lymphocyte pct 11.2 % CERNER [facility] Comment: Interpretive Data Percent cell count reference ranges are not reported, since discordance with absolute values may lead to misinterpretation of CBC data. Current Interpretive Data was last revised on 2017. Testing performed by: [facility], [address] [place] [phone] Monocyte pct 7.7 % CERNER [facility] Comment: Interpretive Data Percent cell count reference ranges are not reported, since discordance with absolute values may lead to misinterpretation of CBC data. Current Interpretive Data was last revised on 2017. Testing performed by: [facility], [address] [place] [phone] Eosinophil pct 10.1 % CERNER [facility] Comment: Interpretive Data Percent cell count reference ranges are not reported, since discordance with absolute values may lead to misinterpretation of CBC data. Current Interpretive Data was last revised on 2017. Testing performed by: [facility], [address] [place] [phone] Basophil pct 0.6 % [place] [facility] Comment: Interpretive Data Percent cell count reference ranges are not reported, since discordance with absolute values may lead to misinterpretation of CBC data. Current Interpretive Data was last revised on 2017. Testing performed by: [facility], [address] [place] [phone] Blood 08/03/2024 7:40 AM ENVIRONMENTAL ENGINEERING MANAGER 08/03/2024 7:47 AM ENVIRONMENTAL ENGINEERING MANAGER Hermelindo Butler MD LAB BLOOD ORDER ELANA Final Result [place] [facility] Department [place] [address] * (ABNORMAL) Immunoglobulin free light chains (08/03/2024 7:40 AM ENVIRONMENTAL ENGINEERING MANAGER) Needmore/Lambda ratio [facility] See Comment 0.26 - 1.65 Comment: Unable to calculate exact result. Interpretive Data The Binding Site FreeLite assay procedure was used. Results from different manufacturers or methods may not be comparable. Serial testing should be performed using the same methods and instrumentation. Current Interpretive Data was last revised on 2023. [place]more free light chain [facility] <0.06(L) 0.33 - [...] revised on 2023. Blood 08/03/2024 7:40 AM ENVIRONMENTAL ENGINEERING MANAGER 08/03/2024 8:24 AM ENVIRONMENTAL ENGINEERING MANAGER us Hermelindo Butler MD LAB BLOOD ORDER ELANA Final Result [facility] Department [place] [address] * (ABNORMAL) CBC with auto differential (08/03/2024 7:40 AM ENVIRONMENTAL ENGINEERING MANAGER) WBC 7.9 3.8 - 9.9 K/cumm Comment:Testing performed by : [facility], [address] [place] [address] Hgb 13.7 13.0 - 17.5 g/dL [place] [facility] Comment:Testing performed by : [facility], [address] [place] [address] Hct 41.5 38.9 - 50.3 % CERFRANK SUAREZ Comment:Testing performed by : [facility], [address] [place] [address] Plt 163 150 - 400 K/cumm [place] [facility] Comment:Testing performed by : [facility], [address] [place] [address] MPV 7.8 6.8 - 10.4 fL CERFRANK BJ Comment:Testing performed by : [facility], [address] [place] [address] RBC 4.50 4.30 - 5.80 M/cumm CERFRANK BJ Comment:Testing performed by : [facility], [address] [place] [address] MCV 92.1 81.3 - 96.4 fL CERFRANK SUAREZ Comment:Testing performed by : [facility], [address] [place] [address] MCH 30.4 27.1 - 33.3 pg CERFRANK BJ Comment:Testing performed by : [facility], [address] [place] [phone] MCHC 33.0 32.3 - 35.7 g/dL MT [facility] Comment:Testing performed by : [facility], [address] [place] [phone] RDW CV 16.6(H) 11.1 - 14.9 % MT [facility] Comment:Testing performed by : [facility], [address] [place] [phone] NRBC abs 0.00 0.00 - 0.01 K/cumm MT [facility] Comment:Testing performed by : [facility], [address] [place] [phone] Blood 08/03/2024 7:40 AM ENVIRONMENTAL ENGINEERING MANAGER 08/03/2024 7:47 AM ENVIRONMENTAL ENGINEERING MANAGER Hermelindo Butler MD LAB BLOOD ORDER ELANA Final Result [facility] Department [place] [address] * (ABNORMAL) Protein electrophoresis with reflex, serum with interpretation (08/03/2024 7:40 AM ENVIRONMENTAL ENGINEERING MANAGER) Protein, sr 5.7(L) 6.2 - 8.2 g/dL Albumin 3.8 3.2 - 5.0 g/dL [facility] Alpha-1 globulin 0.3 0.2 - 0.4 g/dL [facility] Alpha-2 globulin 0.6 0.5 - 1.0 g/dL [facility] Beta-1 globulin 0.4 0.3 - 0.6 g/dL [facility] Beta-2 globulin 0.3 0.2 - 0.6 g/dL [facility] Gamma globulin 0.2(L) 0.5 - 1.7 g/dL [facility] SPEP interp Please see comment [facility] Comment: No apparent monoclonal peak Decreased gamma globulins Electrophoretic pattern appears similar to previous sample 07/14/24 *See immunotyping for further information Reviewed and signed by Hermelindo Mcnulty MD 08/04/2024 Blood 08/03/2024 7:40 AM ENVIRONMENTAL ENGINEERING MANAGER 08/03/2024 8:24 AM ENVIRONMENTAL ENGINEERING MANAGER Hermelindo Butler MD LAB BLOOD ORDER ELANA Final Result Performing Organization Address [facility] Co de Phone Number [facility] [place] [place] [address] * Magnesium (08/03/2024 7:40 AM ENVIRONMENTAL ENGINEERING MANAGER) Pathologist [facility] [place] Magnesium 2.2 1.4 - 2.5 mg/dL Blood 08/03/2024 7:40 AM ENVIRONMENTAL ENGINEERING MANAGER 08/03/2024 9:36 AM ENVIRONMENTAL ENGINEERING MANAGER Hermelindo Butler MD LAB BLOOD ORDER ELANA Final Result Performing Organization Address [facility] de Phone Number [facility] [place] [place] [address] * Lactate dehydrogenase (LD) (08/03/2024 7:40 AM ENVIRONMENTAL ENGINEERING MANAGER) [facility] Lactate dehydrogenase (LDH) 172 100 - 250 Units/L Blood 08/03/2024 7:40 AM ENVIRONMENTAL ENGINEERING MANAGER 08/03/2024 7:49 AM ENVIRONMENTAL ENGINEERING MANAGER Hermelindo Butler MD LAB BLOOD ORDER ELANA Final Result Performing Organization Address [facility] [place] [address] * (ABNORMAL) Hemoglobin A1c (08/03/2024 7:40 AM ENVIRONMENTAL ENGINEERING MANAGER) Hgb A1C 5.8(H) 4.0 - 5.6 % Estimated Average Glucose 120 mg/dL [facility] Comment: The ADA recommends reporting an estimated Average Glucose (eAG) with all Hemoglobin A1c results using the equation derived from a study of 507 normal and diabetic adults. Minority populations were underrepresented and children were not included. (Diabetes Care 2020; 43(S1): S66-S76). The eAG is not equivalent to a fasting glucose. Blood 08/03/2024 7:40 AM ENVIRONMENTAL ENGINEERING MANAGER 08/03/2024 7:49 AM ENVIRONMENTAL ENGINEERING MANAGER Lyndsey Fagan NP LAB BLOOD ORDERABLES [place] l Result Performing Organization Address City/[facility] Co de Phone Number [facility] Department [place] [address] * Gamma GT (08/03/2024 7:40 AM ENVIRONMENTAL ENGINEERING MANAGER) Pathologist [facility] [place] GGT 23 10 - 50 Units/L Blood 08/03/2024 7:40 AM ENVIRONMENTAL ENGINEERING MANAGER 08/03/2024 9:36 AM ENVIRONMENTAL ENGINEERING MANAGER Hermelindo Butler MD LAB BLOOD ORDER ELANA Final Result Performing Organization Address [facility] de Phone Number [facility] [place] [address] * (ABNORMAL) IgA (08/03/2024 7:40 AM ENVIRONMENTAL ENGINEERING MANAGER) Pathologist [facility] [place] Immunoglobulin A <50(L) 70 - 400 mg/dL Blood 08/03/2024 7:40 AM ENVIRONMENTAL ENGINEERING MANAGER 08/03/2024 8:09 AM ENVIRONMENTAL ENGINEERING MANAGER Hermelindo Butler MD LAB BLOOD ORDER ELANA Final Result Performing Organization Address [facility] de Phone Number [facility] [place] [place] [address] * (ABNORMAL) IgM (08/03/2024 7:40 AM ENVIRONMENTAL ENGINEERING MANAGER) Immunoglobulin M <25(L) 40 - 230 mg/dL Blood 08/03/2024 7:40 AM ENVIRONMENTAL ENGINEERING MANAGER 08/03/2024 8:09 AM ENVIRONMENTAL ENGINEERING MANAGER Hermelindo Butler MD LAB BLOOD ORDER ELANA Final Result [facility] Department [place] [address] * (ABNORMAL) IgG (08/03/2024 7:40 AM ENVIRONMENTAL ENGINEERING MANAGER) [facility] Immunoglobulin G <300(L) 700 - 1,600 mg/dL Blood 08/03/2024 7:40 AM ENVIRONMENTAL ENGINEERING MANAGER 08/03/2024 8:09 AM ENVIRONMENTAL ENGINEERING MANAGER Hermelindo Butler MD LAB BLOOD ORDER ELANA Final Result Performing Organization Address [facility] de Phone Number [facility] Department [place] [address] * (ABNORMAL) Comprehensive metabolic panel (08/03/2024 7:40 AM ENVIRONMENTAL ENGINEERING MANAGER) [facility] Sodium 141 135 - 145 mmol/L Potassium, pl 4.0 3.3 - 4.9 mmol/L [facility] Chloride 104 97 - 110 mmol/L [facility] CO2 30 22 - 32 mmol/L [facility] Anion gap 7 2 - 15 mmol/L [facility] BUN 47(H) 6 - 25 mg/dL [facility] Creatinine 1.92(H) 0.80 - 1.30 mg/dL [facility] Glucose 116 70 - 199 mg/dL [facility] Comment: Interpretive Data Fasting glucose >/= [...] Calcium 9.2 8.5 - 10.3 mg/dL [facility] Bilirubin, total 0.7 0.1 - 1.2 mg/dL [facility] Protein, pl 6.2(L) 6.5 - 8.5 g/dL CERNER [facility] Albumin 3.9 3.5 - 5.0 g/dL [facility] Alk phos 63 40 - 130 Units/L CERNER [facility] ALT 15 7 - 55 Units/L CERNER [facility] AST 17 10 - 50 Units/L [facility] Blood 08/03/2024 7:40 AM ENVIRONMENTAL ENGINEERING MANAGER 08/03/2024 7:49 AM ENVIRONMENTAL ENGINEERING MANAGER us Hermelindo Butler MD LAB BLOOD ORDER ELANA Final Result [facility] Department [place] [address] * (ABNORMAL) Urinalysis reflex to microscopic and culture Urine, clean voided (08/03/2024 7:30 AM ENVIRONMENTAL ENGINEERING MANAGER) Color, ur Straw Yellow Clarity, ur Clear Clear [facility] Specific gravity, ur 1.012 1.003 - 1.030 [facility] [facility] pH, urine 5.5 [facility] Comment: Interpretive Data U rine pH is affected by diet, medications, systemic acid-base disturbances, and renal tubular function. pH may affect urinary stone formation. For example, urine pH below 6.0 may help reduce the tendency for calcium phosphate stones and pH greater than 6.0 may reduce the tendency for uric acid stone formation. Source: [facility] Ziptr Current Interpretive Data was last revised on 2017 Protein, ur ql Negative Negative [facility] Glucose, ur ql Negative Negative [facility] Ketones, ur Negative Negative [facility] Bilirubin, ur Negative Negative [facility] Blood, ur 2+(A) Negative [facility] Urobilinogen, ur <2.0 <2.0 mg/dL [facility] Nitrite, ur Negative Negative [facility] Leukocyte esterase, ur Negative [facility] UA reflex comment Reflex to microscopic UA will be performed. [facility] Urine, clean voided 08/03/2024 7:30 AM ENVIRONMENTAL ENGINEERING MANAGER 08/03/2024 7:30 AM ENVIRONMENTAL ENGINEERING MANAGER Lyndsey Fagan NP LAB MICROBIOLOGY - GENERA L ORDERABLES Final Result Performing Organization Address [facility] de Phone Number [facility] [place] [address] * (ABNORMAL) Urinalysis, microscopic only (08/03/2024 7:30 AM ENVIRONMENTAL ENGINEERING MANAGER) WBC, ur 6-10(A) 0 - 5 /HPF RBC, ur 11-20(A) 0 - 2 /HPF [facility] Epithelial cells, squamous, ur 1-5 0 - 5 /HPF [facility] Bacteria, ur Trace(A) [facility] Culture Reflex Comment Reflex conditions for urine culture (WBC >10) not met. [facility] Urine, clean voided 08/03/2024 7:30 AM ENVIRONMENTAL ENGINEERING MANAGER 08/03/2024 7:30 AM ENVIRONMENTAL ENGINEERING MANAGER Lyndsey Fagan NP LAB URINE ORDERABLES [place] l Result Performing Organization Address [facility] de Phone Number [facility] [place] [address] * Urine culture Urine, clean voided (08/03/2024 7:30 AM ENVIRONMENTAL ENGINEERING MANAGER) Report Final Report: No growth Urine, clean voided 08/03/2024 7:30 AM ENVIRONMENTAL ENGINEERING MANAGER 08/03/2024 9:59 AM ENVIRONMENTAL ENGINEERING MANAGER Narrative [facility] - 08/04/2024 11:14 AM ENVIRONMENTAL ENGINEERING MANAGER Testing performed by [facility] ([phone]) Hermelindo Butler MD LAB MICROBIOLOG Y - GENERAL ORDERABLES Final Result Performing Organization Address City/[facility]/ZIP Co de Phone Number [facility] [place] [address] * Immunotyping, serum with interpretation (07/13/2024 7:40 AM ENVIRONMENTAL ENGINEERING MANAGER) Pathologist [facility] [place] Immunosubtraction Please see comment Comment: NO PARAPROTEIN DETECTED Reviewed and signed by Rufino Huff MD, PhD 07/14/2024 Blood 07/13/2024 7:40 AM ENVIRONMENTAL ENGINEERING MANAGER 07/13/2024 8:42 AM ENVIRONMENTAL ENGINEERING MANAGER Hermelindo Butler MD LAB BLOOD ORDER ELANA Final Result Performing Organization Address [facility] Co de Phone Number [facility] Department [place] [address] * (ABNORMAL) eGFR (07/13/2024 7:40 AM ENVIRONMENTAL ENGINEERING MANAGER) Pathologist [facility] [place] eGFR 57(L) >=60 mL/min/1. 73 m2 Comment: [...] last reviewed 2021. Blood 07/13/2024 7:40 AM ENVIRONMENTAL ENGINEERING MANAGER 07/13/2024 7:47 AM ENVIRONMENTAL ENGINEERING MANAGER Hermelindo Butler MD LAB BLOOD ORDER ELANA Final Result [facility] Department [place] [address] * Differential, auto (07/13/2024 7:40 AM ENVIRONMENTAL ENGINEERING MANAGER) Neutrophil abs 5.4 1.5 - 6.5 K/cumm Comment:Testing performed by : [facility], [address] [place] [phone] Lymphocyte abs 0.9 0.8 - 3.3 K/cumm CERNER BJ Comment:Testing performed by : [facility], [address] [place], [place] [id number] Monocyte abs 0.5 0.2 - 0.8 K/cumm CERNER BJ Comment:Testing performed by : [facility], [address] [place], [place] [phone] Eosinophil abs 0.5 0.0 - 0.5 K/cumm CERNER BJ Comment:Testing performed by : [facility], [address] [place] [phone] Basophil abs 0.0 0.0 - 0.1 K/cumm CERNER BJ Comment:Testing performed by : [facility], [address] [place] [phone] Neutrophil pct 73.6 % CERNER BJ Comment: Interpretive Data Percent cell count reference ranges are not reported, since discordance with absolute values may lead to misinterpretation of CBC data. Current Interpretive Data was last revised on 2017. Testing performed by: [facility], [address] [place] [phone] Lymphocyte pct 12.0 % CERNER BJ Comment: Interpretive Data Percent cell count reference ranges are not reported, since discordance with absolute values may lead to misinterpretation of CBC data. Current Interpretive Data was last revised on 2017. Testing performed by: [facility], [address] [place], [place] [phone] Monocyte pct 7.4 % [facility] Comment: Interpretive Data Percent cell count reference ranges are not reported, since discordance with absolute values may lead to misinterpretation of CBC data. Current Interpretive Data was last revised on 2017. Testing performed by: [facility], [address] [place] [phone] Eosinophil pct 6.5 % [facility] Comment: Interpretive Data Percent cell count reference ranges are not reported, since discordance with absolute values may lead to misinterpretation of CBC data. Current Interpretive Data was last revised on 2017. Testing performed by: [facility], [address] [place] [phone] Basophil pct 0.5 % [facility] Comment: Interpretive Data Percent cell count reference ranges are not reported, since discordance with absolute values may lead to misinterpretation of CBC data. Current Interpretive Data was last revised on 2017. Testing performed by: [facility], [address] [place] [phone] Blood 07/13/2024 7:40 AM ENVIRONMENTAL ENGINEERING MANAGER 07/13/2024 7:46 AM ENVIRONMENTAL ENGINEERING MANAGER Hermelindo Butler MD LAB BLOOD ORDER ELANA Final Result MT [facility] Department [place] [address] * (ABNORMAL) Immunoglobulin free light chains (07/13/2024 7:40 AM ENVIRONMENTAL ENGINEERING MANAGER) Needmore/Lambda ratio [facility] See Comment 0.26 - 1.65 Comment: Unable to calculate exact result. Interpretive Data The Binding Site FreeLite assay procedure was used. Results from different manufacturers or methods may not be comparable. Serial testing should be performed using the same methods and instrumentation. Current Interpretive Data was last revised on 2023. [place]more free light chain [facility] <0.06(L) 0.33 - 1.94 mg/dL [facility] [...] revised on 2023. Blood 07/13/2024 7:40 AM ENVIRONMENTAL ENGINEERING MANAGER 07/13/2024 8:42 AM ENVIRONMENTAL ENGINEERING MANAGER Hermelindo Butler MD LAB BLOOD ORDER ELANA Final Result MT [facility] Department [place] [address] * (ABNORMAL) CBC with auto differential (07/13/2024 7:40 AM ENVIRONMENTAL ENGINEERING MANAGER) WBC 7.4 3.8 - 9.9 K/cumm Comment:Testing performed by : [facility], [address] [place] [address] Hgb 14.4 13.0 - 17.5 g/dL CERNER BJ Comment:Testing performed by : [facility], [address] [place] [address] Hct 44.1 38.9 - 50.3 % CERFRANK BJ Comment:Testing performed by : [facility], [address] [place] [address] Plt 174 150 - 400 K/cumm CERFRANK BJ Comment:Testing performed by : [facility], [address] [place] [address] MPV 7.5 6.8 - 10.4 fL CERFRANK BJ Comment:Testing performed by : [facility], [address] [place] [address] RBC 4.75 4.30 - 5.80 M/cumm CERFRANK BJ Comment:Testing performed by : [facility], [address] [place], [place] [phone] MCV 92.8 81.3 - 96.4 fL MT [facility] Comment:Testing performed by : [facility], [address] [place], [place] [phone] MCH 30.2 27.1 - 33.3 pg MT [facility] Comment:Testing performed by : [facility], [address] [place], [place] [phone] MCHC 32.6 32.3 - 35.7 g/dL MT [facility] Comment:Testing performed by : [facility], [address] [place], [place] [phone] RDW CV 16.2(H) 11.1 - 14.9 % MT [facility] Comment:Testing performed by : [facility], [address] [place], [place] [phone] NRBC abs 0.00 0.00 - 0.01 K/cumm MT [facility] Comment:Testing performed by : [facility], [address] [place], [place] [phone] Blood 07/13/2024 7:40 AM ENVIRONMENTAL ENGINEERING MANAGER 07/13/2024 7:46 AM ENVIRONMENTAL ENGINEERING MANAGER Hermelindo Butler MD LAB BLOOD ORDER ELANA Final Result [facility] Department [place] [address] * (ABNORMAL) Protein electrophoresis with reflex, serum with interpretation (07/13/2024 7:40 AM ENVIRONMENTAL ENGINEERING MANAGER) Protein, sr 5.7(L) 6.2 - 8.2 g/dL Albumin 3.7 3.2 - 5.0 g/dL MT [facility] Alpha-1 globulin 0.3 0.2 - 0.4 g/dL MT [facility] Alpha-2 globulin 0.6 0.5 - 1.0 g/dL MT [facility] Beta-1 globulin 0.4 0.3 - 0.6 g/dL [facility] Beta-2 globulin 0.3 0.2 - 0.6 g/dL [facility] Gamma globulin 0.3(L) 0.5 - 1.7 g/dL [facility] SPEP interp Please see comment [facility] Comment: No apparent monoclonal peak Decreased gamma globulins Electrophoretic pattern appears similar to previous sample 06/23/24 See immunotyping for further information Reviewed and signed by Rufino Huff MD, PhD 07/14/2024 Blood 07/13/2024 7:40 AM ENVIRONMENTAL ENGINEERING MANAGER 07/13/2024 8:42 AM ENVIRONMENTAL ENGINEERING MANAGER Hermelindo Butler MD LAB BLOOD ORDER ELANA Final Result Performing Organization Address City/[facility] Co de Phone Number [facility] Department [place] [address] * Magnesium (07/13/2024 7:40 AM ENVIRONMENTAL ENGINEERING MANAGER) Pathologist [facility] [place] Magnesium 2.2 1.4 - 2.5 mg/dL Blood 07/13/2024 7:40 AM ENVIRONMENTAL ENGINEERING MANAGER 07/13/2024 7:47 AM ENVIRONMENTAL ENGINEERING MANAGER Hermelindo Butler MD LAB BLOOD ORDER ELANA Final Result Performing Organization Address [facility] de Phone Number [facility] Department [place] [address] * Lactate dehydrogenase (LD) (07/13/2024 7:40 AM ENVIRONMENTAL ENGINEERING MANAGER) Lactate dehydrogenase (LDH) 152 100 - 250 Units/L Blood 07/13/2024 7:40 AM ENVIRONMENTAL ENGINEERING MANAGER 07/13/2024 7:47 AM ENVIRONMENTAL ENGINEERING MANAGER Hermelindo Butler MD LAB BLOOD ORDER ELANA Final Result Performing Organization Address City/[facility] Co de Phone Number [facility] Department [place] [address] * Gamma GT (07/13/2024 7:40 AM ENVIRONMENTAL ENGINEERING MANAGER) GGT 27 10 - 50 Units/L Blood 07/13/2024 7:40 AM ENVIRONMENTAL ENGINEERING MANAGER 07/13/2024 7:47 AM ENVIRONMENTAL ENGINEERING MANAGER Hermelindo Butler MD LAB BLOOD ORDER ELANA Final Result Performing Organization Address City/State/[facility] Co de Phone Number [facility] [place] [address] * (ABNORMAL) IgA (07/13/2024 7:40 AM ENVIRONMENTAL ENGINEERING MANAGER) [facility] Immunoglobulin A <50(L) 70 - 400 mg/dL Blood 07/13/2024 7:40 AM ENVIRONMENTAL ENGINEERING MANAGER 07/13/2024 7:59 AM ENVIRONMENTAL ENGINEERING MANAGER Hermelindo Butler MD LAB BLOOD ORDER ELANA Final Result Performing Organization Address City/[facility] Co de Phone Number [facility] Department [place] [address] * (ABNORMAL) IgM (07/13/2024 7:40 AM ENVIRONMENTAL ENGINEERING MANAGER) [facility] Immunoglobulin M <25(L) 40 - 230 mg/dL Blood 07/13/2024 7:40 AM ENVIRONMENTAL ENGINEERING MANAGER 07/13/2024 7:59 AM ENVIRONMENTAL ENGINEERING MANAGER Hermelindo Butler MD LAB BLOOD ORDER ELANA Final Result Performing Organization Address City/[facility] [place] [address] * (ABNORMAL) IgG (07/13/2024 7:40 AM ENVIRONMENTAL ENGINEERING MANAGER) Pathologist [facility] [place] Immunoglobulin G <300(L) 700 - 1,600 mg/dL Blood 07/13/2024 7:40 AM ENVIRONMENTAL ENGINEERING MANAGER 07/13/2024 7:59 AM ENVIRONMENTAL ENGINEERING MANAGER Hermelindo Butler MD LAB BLOOD ORDER ELANA Final Result [facility] Department [place] [address] * (ABNORMAL) Comprehensive metabolic panel (07/13/2024 7:40 AM ENVIRONMENTAL ENGINEERING MANAGER) Pathologist [facility] [place] Sodium 144 135 - 145 mmol/L Potassium, pl 4.2 3.3 - 4.9 mmol/L [facility] Chloride 107 97 - 110 mmol/L [facility] CO2 33(H) 22 - 32 mmol/L [facility] Anion gap 4 2 - 15 mmol/L [facility] BUN 29(H) 6 - 25 mg/dL [facility] Creatinine 1.34(H) 0.80 - 1.30 mg/dL [facility] Glucose 125 70 - 199 mg/dL [facility] Comment: Interpretive Data Fasting glucose >/= [...] Calcium 9.4 8.5 - 10.3 mg/dL CERNER [facility] Bilirubin, total 0.7 0.1 - 1.2 mg/dL [facility] Protein, pl 6.2(L) 6.5 - 8.5 g/dL [facility] Albumin 4.1 3.5 - 5.0 g/dL [facility] Alk phos 65 40 - 130 Units/L [facility] ALT 18 7 - 55 Units/L [facility] AST 16 10 - 50 Units/L [facility] Blood 07/13/2024 7:40 AM ENVIRONMENTAL ENGINEERING MANAGER 07/13/2024 7:47 AM ENVIRONMENTAL ENGINEERING MANAGER us Hermelindo Butler MD LAB BLOOD ORDER ELANA Final Result Performing Organization Address [facility] de Phone Number [facility] [place] [address] * aPTT (07/13/2024 7:24 AM ENVIRONMENTAL ENGINEERING MANAGER) aPTT 28 28 - 38 sec Comment: Interpretive Data Heparin therapeutic range: 66.0 - 100.0 seconds. Range based on correlation with therapeutic heparin activity range of 0.3 - 0.7 Units/mL. Current interpretive data was last revised on 2023. Blood 07/13/2024 7:24 AM ENVIRONMENTAL ENGINEERING MANAGER 07/13/2024 7:59 AM ENVIRONMENTAL ENGINEERING MANAGER Result [facility] Hermelindo Butler MD LAB BLOOD ORDER ELANA Final Result Performing Organization Address [facility] [place] [address] * Protime-INR (07/13/2024 7:24 AM ENVIRONMENTAL ENGINEERING MANAGER) PT 11.5 9.7 - 13.0 sec INR 1.06 0.90 - 1.20 [facility] Comment: Interpretive data Oral anticoagulant therapeutic ranges: Venous thromboembolism prophylaxis or treatment: 2.0-3.0 CARDIOLOGY Standard range: 2.0-3.0 High-intensity range: 2.5-3.5 Refer to indication-specific guidelines for appropriate target ranges for prosthetic heart valve replacement. Current interpretive data was last revised on 2019. Blood 07/13/2024 7:24 AM ENVIRONMENTAL ENGINEERING MANAGER 07/13/2024 7:59 AM ENVIRONMENTAL ENGINEERING MANAGER us Hermelindo Butler MD LAB BLOOD ORDER ELANA Final Result Performing Organization Address City/[facility]/ZIP Co de Phone Number [facility] [place] [address] * Hepatitis C antibody (10/16/2021 9:50 AM CDT) Hep C Ab Nonreactive Nonreactive [facility] Comment:Antibodies to HCV no t detected. Does NOT exclude the possibility of recent exposure to HCV. Blood 10/16/2021 9:50 AM CDT 10/16/2021 11:22 AM CDT Hermelindo dupree MD LAB MICROBIOLOGY - GENERAL ORDERABLES Edited Result - Final Performing Organization Address [facility] Co de Phone Number [facility] [place] [address] from Last 3 Months or Most Recently Relevant to Health Maintenance Insurance MEDICARE [employer] SENIOR SUPPLEMENT MEDICARE [facility] SENIOR SUPPLEMENT MEDICARE [employer] SENIOR SUPPLEMENT Advance Directives For more information, please contact: [phone] Documents on File Type Date Recorded Patient Public Health Nutritionist Expl anation ADVANCE DIRECTIVE 11/29/2017 11:05 AM FOX R OF BARTENDER HELPER ADVANCE DIRECTIVE 11/12/2017 3:59 PM POWER OF BARTENDER HELPER * Full Code (Latest Code Status on [...] 2:28 PM 05/31/2021 2:39 PM Care Teams Residential Mental Health Worker Relationship Specialty Start Date End Date Jatin Gamble MD [address] [place] [address] PCP - General 10/07/16 Hermelindo Butler MD [address] [place], [place] [id number] Medical Oncologist/Hematologi Medical Oncology 12/02/17 Roberto Rojo MD [address] [place] [address] Medical Oncologist/Hematologi Hematology and Oncology 12/02/17 Jatin Gamble MD [address] [place] [address] Referring Physician Internal Medicine 12/02/17 Lyndsey Fagan NP [address] [place] [address] Nurse Practitioner Medical Oncology 08/03/20 Erlin Servin MD [address] [place] [address] Consulting Physician Otolaryngology 10/04/22 [place] [address] [place] [address] Consulting Physician Urology 05/28/23 Salvador Norris MD [facility] [id number] [place] [address] Consulting Physician Infectious Diseases 09/15/24 Miscellaneous, Not In File 09/15/24
--- OUTSIDE RECORDS SUMMARY | 2024-10-09 13:11 | XMS_ITS | Encounter Summary ---
Author Organization [facility] Healthcare Address [address] [place] [address] Care Team Providers Care Vp Corporate Development Name Role Phone Jatin Gamble MD Primary Care Provider Hermelindo Butler MD Unavailable Roberto Rojo MD Unavailable Jatin Gamble MD Unavailable Garry Dukes MD Unavailable [phone] Lyndsey Fagan NP Unavailable Erlin Servin MD Unavailable Julian Valdez MD Unavailable Salvador Norris MD Unavailable Miscellaneous, Not In File Unavailable Unava ilable Encounter Details Date Type Department Care Team (Late st Contact Info) Description 04/29/2022 Community Orders [facility] EpicCare Link Jatin Gamble MD [address] [place] [address] Elevated prostate specific antigen (PSA) (Primary Dx) Social History Tobacco Use Types Packs/Day Years Used Date Smoking Tobacco: Never Smokeless Tobacco: Never Alcohol Use Standard Drinks/Week Comments No 0 (1 standard drink = 0.6 oz pur e alcohol) Sex and Gender Information Value Date Recorded Sex Assigned at Not on file Legal Sex 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 FULFILLMENT ASSOCIATE Gender Identity Not on file Sexual Orientation [...] documented as of this encounter Care Teams Vp Corporate Development Relationship Specialty Start Date End Date Jatin Gamble MD [address] [place] [address] PCP - General 10/07/16 Hermelindo Butler MD [address] [place] [address] Medical Oncologist/[facility]olog[facility]m [facility] Medical Oncology 12/02/17 Roberto Rojo MD [address] [place] [id number] Medical Oncologist/Hematologunm [facility] Hematology and Oncology 12/02/17 Jatin Gamble MD [address] [place] [address] Referring Physician Internal Medicine 12/02/17 Garry Dukes MD [address] [place], [place] [phone] Referring Physician Urology 12/02/17 05/27/23 Lyndsey Fagan NP [address] [place] [address] Nurse Practitioner Medical Oncology 08/03/20 Erlin Servin MD [address] [place] [address] Consulting Physician Otolaryngology 10/04/22 [place] [address] [place] [address] Consulting Physician Urology 05/28/23 Salvador Norris MD [address] [place] [address] Consulting Physician Infectious Diseases 09/15/24 Miscellaneous, Not In File 09/15/24 documented as of this encounter
--- OUTSIDE RECORDS SUMMARY | 2024-10-09 13:11 | XMS_ITS | Encounter Summary ---
Author Organization [facility] Address [address] [place] [address] Phone Care Team Providers Care Horologist Name Role Phone Jatin Gamble MD Primary Care Provider Hermelindo Butler MD Unavailable Roberto Rojo MD Unavailable Jatin Gamble MD Unavailable Lyndsey Fagan NP Unavailable Erlin Servin MD Unavailable [phone] Julian Valdez MD Unavailable Salvador Norris MD Unavailable Miscellaneous, Not In File Unavailable Unava ilable Encounter Details Date Type Department Care Team (Late st Contact Info) Description 10/07/2024 Orders Only [facility] Bone Marrow Transplant [address] [facility] Floor [address] [place] [address] Hermelindo Butler MD [address] DIV IM BONE MARROW TRANSPLANT, [address] [place] [address] Social History Tobacco Use Types Packs/Day Years Used Date Smoking Tobacco: Never Smokeless Tobacco: Never Alcohol Use Standard Drinks/Week Comments No 0 (1 standard drink = 0.6 oz pur e alcohol) [facility] Utilities Answer Date Recorded In the past [...] often do you attend chur ch or adventism services? More than 4 times per year 09/13/2024 Do you belong to any clubs o r organizations such as denominational groups, unions, fraternal or athletic groups, or [...] any time in the past 12 m [place], were you homeless or living in a assisted (including now)? No 09/13/2024 Personal Safety Answer Date Recorded Have you ever been in or are you currently in a harmful physical or emotional relationship or is someone making you feel afraid or unsafe? Denies 09/11/2024 Sex and Gender Information Value Date Recorded Sex Assigned at Not on file Legal Sex 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 MANAGER [employer] Gender Identity Not on file Sexual Orientation Not on file documented as of this encounter Plan of Treatment Not on file documented as of this encounter Visit Diagnoses Not on filedocumented in this encounter Care Teams Horologist Relationship Specialty Start Date End Date Jatin Gamble MD [address] [place] [address] PCP - General 10/07/16 Hermelindo Butler MD [address] [place] [id number] [facility] 12/02/17 Roberto Rojo MD [address] [facility] [place] [address] [facility] Oncology 12/02/17 Jatin Gamble MD [address] [place] [address] Referring Physician Internal Medicine 12/02/17 Lyndsey Fagan NP [address] [place] [address] Nurse Practitioner Medical Oncology 08/03/20 Erlin Servin MD [address] [place] [address] [place] [address] Consulting Physician Otolaryngology 10/04/22 [place] [address] [place] [address] Consulting Physician Urology 05/28/23 Salvador Norris MD [id number] [place] [address] Consulting Physician Infectious Diseases 09/15/24 Miscellaneous, Not In File 09/15/24 documented as of this encounter
--- OUTSIDE RECORDS SUMMARY | 2024-10-09 13:11 | XMS_ITS | Encounter Summary ---
Author Organization [facility] Address [address] [place] [address] Phone Care Team Providers Care Vice President Diversity Name Role Phone Jatin Gamble MD Primary Care Provider [phone] Hermelindo Butler MD Unavailable Roberto Rojo MD Unavailable Jatin Gamble MD Unavailable [phone] Lyndsey Fagan NP Unavailable Erlin Servin MD Unavailable Julian Valdez MD Unavailable Salvador Norris MD Unavailable Miscellaneous, Not In File Unavailable Unava ilable Encounter Details Date Type Department Care Team (Latest Contact Info) Description 10/05/2024 Orders Only [facility] Scanning, Provider Social History Tobacco Use Types Packs/Day Years Used Date Smoking Tobacco: Never Smokeless Tobacco: Never Alcohol Use Standard Drinks/Week Comments No 0 (1 standard drink = 0.6 oz pur e alcohol) [facility] Utilities Answer Date Recorded In the [...] How often do you attend chur or jain services? More than 4 times per year 09/13/2024 Do you belong to any clubs o r organizations such as restoration groups, unions, fraternal or athletic groups, or [...] any time in the past 12 m [facility], were you homeless or living in a penitentiary (including now)? No 09/13/2024 Personal Safety Answer Date Recorded Have you ever been in or are you currently in a harmful physical or emotional relationship or is someone making you feel afraid or unsafe? Denies 09/11/2024 Sex and Gender Information Value Date Recorded Sex Assigned at Not on file Legal Sex 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 WRAPPING CHECKER Gender Identity Not on file Sexual Orientation Not on file documented as of this encounter Plan of Treatment Not on file documented as of this encounter Procedures Procedure Name Priority Date/Time Associated Diagnosis Comments SCAN - LABS 10/05/2024 documented in this encounter Results * SCAN - LABS (10/05/2024) us Provider Scanning Final Result documented in this encounter Visit Diagnoses Not on filedocumented in this encounter Care Teams Vice President Diversity Relationship Specialty Start Date End Date Jatin Gamble MD [address] [place] [address] PCP - General 10/07/16 Hermelindo Bulter MD [address] [place] [address] [facility] 12/02/17 Roberto Rojo MD [address] [place] [address] [facility] 12/02/17 Jatin Gamble MD [address] [place] [address] Referring Physician Internal Medicine 12/02/17 Lyndsey Fagan NP [address] [place] [address] Nurse Practitioner Medical Oncology 08/03/20 Erlin Servin MD [address] [place] [address] Consulting Physician Otolaryngology 10/04/22 [place] [address] [place] [address] Consulting Physician Urology 05/28/23 Salvador Norris MD [id number] [place] [address] Consulting Physician Infectious Diseases 09/15/24 Miscellaneous, Not In File 09/15/24 documented as of this encounter
--- OUTSIDE RECORDS SUMMARY | 2024-10-09 13:11 | XMS_ITS | Referral Summary ---
Author Organization [facility] Address [address] [place] [address] Care Team Providers Care Bladder Blower Name Role Phone Jatin Gamble MD Primary Care Provider Hermelindo Butler MD Unavailable Roberto Rojo MD Unavailable [phone] Jatin Gamble MD Unavailable [phone] Lyndsey Fagan NP Unavailable Eriln Servin MD Unavailable [phone] Julian Valdez MD Unavailable Salvador Norris MD Unavailable Miscellaneous, Not In File Unavailable Unava ilable Encounters Date Type Department Care Team Description 10/07/2024 Orders Only [facility] Bone Marrow Transplant [address] [place] [phone] Hermelindo Hill MD 10/05/2024 Orders Only [facility] Scanning, Provider 10/05/2024 Orders Only [facility] Bone Marrow Transplant [address] [place] [phone] Hermelindo Hill MD Multiple myeloma, remission status unspecified (HCC) (Primary Dx) 09/28/2024 9:30 AM CDT Infusion [facility] - [facility]fusion [address] [facility] [address] [place] [address] Multiple myeloma in relapse (HCC) (Primary Dx); Multiple myeloma in remission (HCC) 09/28/2024 7:30 AM CDT Clinical Support [facility] - Lab Collection [address] [facility] 6 [place] [address] Multiple myeloma in remission (HCC); Multiple myeloma in relapse (HCC); Multiple myeloma, remission status unspecified (HCC) 09/28/2024 8:30 AM CDT Office Visit [facility] Bone Marrow Transplant [facility] Floor 6 [place] [address] Lyndsey Fagan NP Multiple myeloma, remission status unspecified (HCC) (Primary Dx); Multiple myeloma in remission (HCC); Multiple myeloma in relapse (HCC) 09/15/2024 Orders Only [facility] 1 [place] [address] Preeti Wayne RPh 09/11/2024 1:43 AM CDT - 09/15/2024 5:22 PM CDT [id number] [place] [address] Emory Santana MD [place], MD Bonifacio Carrillo, Choco Murcia, DO Oliguria (Primary Dx); Bacteremia Discharge Disposition: Discharge to home, home health skilled care 09/10/2024 Orders Only Urology Yesika Capone PA Elevated prostate specific antigen (PSA) (Primary Dx) 09/07/2024 Orders Only [facility] Bone Marrow Transplant [address] [facility] 6 [place] [address] Hermelindo Hill MD 09/06/2024 Orders Only [facility] Bone Marrow Transplant [address] [place] [phone] Lyndsey Fagan NP 08/31/2024 8:45 AM CDT Clinical Support [facility] - Lab Collection [address] [facility] 6 [place] [address] Multiple myeloma in relapse (HCC); Multiple myeloma not having achieved remission (HCC); Multiple myeloma, remission status unspecified (HCC) 08/31/2024 10:00 AM CDT Infusion [facility] - Infusion [address] [facility] [place] [address] Multiple myeloma in relapse (HCC) (Primary Dx); Multiple myeloma in remission (HCC) 08/31/2024 9:00 AM CDT Office Visit [facility] Bone Marrow Transplant [address] [place] [phone] Hermelindo Hill MD Multiple myeloma in relapse (HCC) (Primary Dx); Multiple myeloma in remission (HCC) 08/31/2024 8:15 AM CDT Clinical Support [facility] Oncology Lab [address] [place] [phone] Multiple myeloma not having achieved remission (HCC); Multiple myeloma in remission (HCC) 08/30/2024 Orders Only [facility] Scanning, Provider 08/27/2024 Documentation Nephrology Ani Anne LCSW 08/27/2024 Orders Only [facility] Bone Marrow Transplant [address] [place] [phone] Hermelindo Hill MD Multiple myeloma not having achieved remission (HCC) (Primary Dx); JOHN (acute kidney injury) 08/23/2024 11:13 PM CDT - 08/26/2024 4:50 PM CDT Hospital Encounter [address] [phone] Hermelindo Hill MD [place], Thabet J.M., MD JOHN (acute kidney injury) (Primary Dx) Discharge Disposition: Discharge to home or self care 08/25/2024 6:50 AM CDT Ancillary Procedure [facility] Vascular Lab IP 1 [facility] [address] [place] [address] 08/23/2024 7:10 PM CDT - 08/23/2024 11:59 PM CDT Hospital Encounter [facility] 1 [facility] [place] [address] Discharge Disposition: Discharge to home or self care 08/23/2024 Orders Only [facility] 1 [place] [address] Hermelindo Hill MD 08/23/2024 Orders Only [facility] Bone Marrow Transplant [address] [phone] Hermelindo Hill MD Multiple myeloma, remission status unspecified (HCC) (Primary Dx) 08/23/2024 5:24 PM CDT - 08/23/2024 11:59 PM CDT Hospital Encounter [facility] [address] [place] [phone] Hermelindo Hill MD Elevated serum creatinine (Primary Dx); Multiple myeloma, remission status unspecified (HCC) Discharge Disposition: Discharge to home or self care 08/20/2024 Orders Only [facility] Scanning, Provider 08/10/2024 Orders Only [facility] Scanning, Provider 08/06/2024 Telephone [facility]row Trans[facility] [address] [phone] Lyndsey Fagan NP 08/06/2024 Orders Only [facility] Bone Marrow Transplant [address] [place] [phone] Lyndsey Fagan NP Multiple myeloma, remission status unspecified (HCC) (Primary Dx) 08/06/2024 1:45 PM MARKETING STRATEGY MANAGER Clinical Support [facility] - Lab Collection [address] [facility] [address] [place] [address] 08/06/2024 1:00 PM MARKETING STRATEGY MANAGER - 08/06/2024 11:59 PM MARKETING STRATEGY MANAGER Hospital Encounter [facility] 1 [place] [address] Multiple myeloma, remission status unspecified (HCC) Discharge Disposition: Discharge to home or self care 08/06/2024 Orders Only [facility] Marrow Transplant [facility] [address] [phone] Lyndsey Fagan NP JOHN (acute kidney injury) (Primary Dx) 08/06/2024 Orders Only [facility]row Transplant [facility] [address] [phone] Hermelindo Hill MD Multiple myeloma, remission status unspecified (HCC) (Primary Dx) 08/06/2024 7:15 AM MARKETING STRATEGY MANAGER Clinical Support [facility] - Lab Collection [address] [place] [address] Multiple myeloma in relapse (HCC) (Primary Dx); Multiple myeloma, remission status unspecified (HCC); JOHN (acute kidney injury) 08/06/2024 8:00 AM MARKETING STRATEGY MANAGER Infusion [facility] - Infusion [address] 6 [place] [address] Multiple myeloma not having achieved remission (HCC) (Primary Dx); Hypogammaglobuline hakeem 08/03/2024 Orders Only [facility] Bone Marrow Transplant [address] [phone] Hermelindo Hill MD 08/03/2024 Orders Only [facility]row Transplant [facility] [address] [phone] Hermelindo Hill MD 08/03/2024 Orders Only [facility] Bone Marrow Transplant [address] [place] [phone] Hermelindo Hill MD 08/03/2024 9:30 AM MARKETING STRATEGY MANAGER Infusion [facility] - Infusion [address] [place] [address] Multiple myeloma in relapse (HCC) (Primary Dx); Multiple myeloma in remission (HCC) 08/03/2024 7:30 AM MARKETING STRATEGY MANAGER Clinical Support [facility] - Lab Collection [address] [place] [address] Multiple myeloma in remission (HCC); Multiple myeloma, remission status unspecified (HCC); Multiple myeloma in relapse (HCC) 08/03/2024 8:30 AM MARKETING STRATEGY MANAGER Office Visit [facility] Bone Marrow Transplant [address] [place] [phone] Hermelindo Hill MD Multiple myeloma, remission status unspecified (HCC) (Primary Dx); Multiple myeloma in remission (HCC); Multiple myeloma in relapse (HCC) 08/02/2024 Telephone [facility] Bone Marrow Transplant [address] [place] [address] Lyndsey Fagan NP 07/30/2024 Telephone [facility] Bone Marrow Transplant [address] [place] [phone] Hermelindo Hill MD 07/27/2024 Telephone [facility] Bone Marrow Transplant [address] [place] [phone] Hermelindo Hill MD 07/26/2024 Orders Only [facility] Bone Marrow Transplant [address] [place] [phone] Hermelindo Hill MD 07/26/2024 Orders Only [facility] Bone Marrow Transplant [address] [place] [phone] Hermelindo Hill MD 07/26/2024 Telephone [facility] Bone Marrow Transplant [address] [place] [phone] Margaret Kay, NAHUN Medical Question/Miscellan eous 07/13/2024 Telephone [facility] Bone Marrow Transplant [address] [place] [phone] Fadumo Tobar RN 07/13/2024 10:00 AM MARKETING STRATEGY MANAGER Infusion [facility] - Infusion [address] [place] [address] Floor 6 [place] [address] Multiple myeloma in relapse (HCC) (Primary Dx); Multiple myeloma in remission (HCC) 07/13/2024 8:00 AM MARKETING STRATEGY MANAGER Clinical Support [facility] - Lab Collection [address] [facility] [address] [place] [address] Multiple myeloma in remission (HCC); Multiple myeloma in relapse (HCC); Multiple myeloma, remission status unspecified (HCC) 07/13/2024 9:00 AM MARKETING STRATEGY MANAGER Office Visit [facility] Bone Marrow Transplant [address] [facility] 6 [place] [address] Hermelindo Hill MD Multiple myeloma, remission status [...] Inpatient Care Coordination Overview Diagnosis MM Floor 10[address] Treatment Plan Clinical Trial [id number] Rahel Reason for Admission JOHN Transplant/IEC Planning [...] Medical Assistants Post-Discharge Follow-Up Living Situation/Distance from [place], [place] (45 min) Caregiver Self, Lab/Transfusion Frequency [...] is a risk of orbital injury and CABINET MAKER injury which could result in blindness or [...] this. Assessment & Plan (07/09/2022 7:42 PM MARKETING STRATEGY MANAGER): I talked with him quite a [...] weeks. Assessment & Plan (05/26/2022 4:16 PM MARKETING STRATEGY MANAGER): He does have pretty significant sinusitis [...] day. Assessment & Plan (05/26/2022 4:17 PM MARKETING STRATEGY MANAGER): It is very possible that his cough could be due to sinusitis also. Hopefully that will continue to improve as we treat. He understands. Immunocompromised 11/13/2021 Multiple myeloma not having achieved remission 0 10/28/2021 Cancer Staging:Clinical stage from 10/16/2021:RISS Stage II(Tqnn-1-zuyztaiwwjnty (mg/L): 3.7, Albumin (g/dL): 4.2, ISS: Stage [...] and Dexamethasone in June 2021 Clinical trial [id number] initiated on 10/29/21; C46D1 08/03/24. BMT following [...] he got a TTE on 10/19 at [place] however unclear why not currently in the system - May need to repeat TTE prior to treatment if results unavailable - Continue OI ppx with acyclovir 400mg BID - Begin trial [id number], a Bispecific Antibody Targeting BCMA treatment - [...] he got a TTE on 10/19 at [place] however unclear why not currently in the system - May need to repeat TTE prior to treatment if results unavailable - Continue OI ppx with acyclovir 400mg BID - Begin trial [id number], a Bispecific Antibody Targeting BCMA treatment - [...] BID Assessment & Plan (05/31/2021 10:51 AM MARKETING STRATEGY MANAGER): Continue home pepcid, asx Renal mass 05/30/2021 Assessment & Plan (05/31/2021 10:51 AM MARKETING STRATEGY MANAGER): Admitted for observation after L renal [...] 07/17/2023 Assessment & Plan (05/31/2021 10:52 AM MARKETING STRATEGY MANAGER): Follows with oncology on daratumumab monotherapy [...] blood in urine Follow up pathology from ikodbejpp-cye-xvqlcxox high-grade papillary urothelial carcinoma (grade 2) --follow [...] from urology to keep placed x1 week 11/12-Bekcham placed-dawn blood in urine Follow up pathology from liehpblke-jbi-yjsrcyop high-grade papillary urothelial carcinoma (grade 2) --follow [...] supplementation Assessment & Plan (05/31/2021 10:51 AM MARKETING STRATEGY MANAGER): Stable on home losartan, nebivolol, triamterene-HCTZ [...] drink = 0.6 oz pur e alcohol) [facility] Utilities Answer Date Recorded In the past 12 months has e [employer], gas, oil, or water company threatened to [...] How often do you attend chur or episcopalian services? More than 4 times per year 09/13/2024 Do you belong to any clubs o r organizations such as mormon groups, unions, fraternal or athletic groups, or [...] any time in the past 12 m [facility], were you homeless or living in a intermediate (including now)? No 09/13/2024 Personal Safety Answer Date Recorded Have you ever been in or are you currently in a harmful physical or emotional relationship or is someone making you feel afraid or unsafe? Denies 09/11/2024 Sex and Gender Information Value Date Recorded Sex Assigned at Not on file Legal Sex 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 MARKETING STRATEGY MANAGER Gender Identity Not on file Sexual [...] on file Medical Devices Implanted Type Area Herbologist Device Identifier Shelf Expiration Date Model / [...] AM CDT Multiple myeloma in relapse (HCC) [place] INSJ NON-TUNNELED CENTRAL VENOUS CATH AGE 7 [...] Read Routine (OP Routine) 08/06/2024 2:42 PM MARKETING STRATEGY MANAGER Multiple myeloma, remission status unspecified (HCC) URINALYSIS, MICROSCOPIC ONLY Routine 08/06/2024 9:19 AM MARKETING STRATEGY MANAGER JOHN (acute kidney injury) PROTEIN / CREATININE RATIO, URINE, RANDOM Routine 08/06/2024 9:19 AM MARKETING STRATEGY MANAGER JOHN (acute kidney injury) URINALYSIS AND REFLEX TO MICROSCOPIC Routine 08/06/2024 9:19 AM MARKETING STRATEGY MANAGER JOHN (acute kidney injury) EGFR Routine 08/06/2024 7:43 AM MARKETING STRATEGY MANAGER Multiple myeloma, remission status unspecified (HCC) DIFFERENTIAL AUTO Routine 08/06/2024 7:4 3 AM MARKETING STRATEGY MANAGER Multiple myeloma, remission status unspecified (HCC) LACTATE DEHYDROGENASE Routine 08/06/2024 7:43 AM MARKETING STRATEGY MANAGER Multiple myeloma, remission status unspecified (HCC) CBC WITH AUTO DIFFERENTIAL Routine 08/06/2024 7:43 AM MARKETING STRATEGY MANAGER Multiple myeloma, remission status unspecified (HCC) COMPREHENSIVE METABOLIC PANEL Routine 08/06/2024 7:43 AM MARKETING STRATEGY MANAGER Multiple myeloma, remission status unspecified (HCC) LIPID PANEL Routine 08/06/2024 7:43 AM MARKETING STRATEGY MANAGER Multiple myeloma, remission status unspecified (HCC) PSA DIAGNOSTIC Routine 08/06/2024 7:43 AM MARKETING STRATEGY MANAGER Multiple myeloma, remission status unspecified (HCC) PROTIME-INR STAT 08/03/2024 9:21 AM MARKETING STRATEGY MANAGER Multiple myeloma in relapse (HCC) APTT STAT 08/03/2024 9:21 AM MARKETING STRATEGY MANAGER Multiple myeloma in relapse (HCC) MAGNESIUM STAT 08/03/2024 7:40 AM MARKETING STRATEGY MANAGER Multiple myeloma in relapse (HCC) GAMMA GT STAT 08/03/2024 7:40 AM MARKETING STRATEGY MANAGER Multiple myeloma in relapse (HCC) EGFR Routine 08/03/2024 7:40 AM MARKETING STRATEGY MANAGER Multiple myeloma, remission status unspecified (HCC) DIFFERENTIAL AUTO Routine 08/03/2024 7:4 0 AM MARKETING STRATEGY MANAGER Multiple myeloma, remission status unspecified (HCC) CBC WITH AUTO DIFFERENTIAL Routine 08/03/2024 7:40 AM MARKETING STRATEGY MANAGER Multiple myeloma, remission status unspecified (HCC) COMPREHENSIVE METABOLIC PANEL Routine 08/03/2024 7:40 AM MARKETING STRATEGY MANAGER Multiple myeloma, remission status unspecified (HCC) IGA Routine 08/03/2024 7:40 AM MARKETING STRATEGY MANAGER Multiple myeloma, remission status unspecified (HCC) IGG Routine 08/03/2024 7:40 AM MARKETING STRATEGY MANAGER Multiple myeloma, remission status unspecified (HCC) IGM Routine 08/03/2024 7:40 AM MARKETING STRATEGY MANAGER Multiple myeloma, remission status unspecified (HCC) IMMUNOGLOBULIN FREE LIGHT CHAINS Routine 08/03/2024 7:40 AM MARKETING STRATEGY MANAGER Multiple myeloma, remission status unspecified (HCC) LACTATE DEHYDROGENASE Routine 08/03/2024 7:40 AM MARKETING STRATEGY MANAGER Multiple myeloma, remission status unspecified (HCC) PROTEIN ELECTROPHORESIS, WITH REFLEX, SERUM Routine 08/03/2024 7:40 AM MARKETING STRATEGY MANAGER Multiple myeloma, remission status unspecified (HCC) IMMUNOTYPING Routine 08/03/2024 7:40 AM MARKETING STRATEGY MANAGER Multiple myeloma, remission status unspecified (HCC) HEMOGLOBIN A1C Routine 08/03/2024 7:40 AM MARKETING STRATEGY MANAGER Multiple myeloma, remission status unspecified (HCC) URINALYSIS, MICROSCOPIC ONLY Routine 08/03/2024 7:30 AM MARKETING STRATEGY MANAGER Multiple myeloma, remission status unspecified (HCC) URINE CULTURE Routine 08/03/2024 7:30 AM MARKETING STRATEGY MANAGER URINALYSIS AND REFLEX TO MICROSCOPIC AND CULTURE Routine 08/03/2024 7:30 AM MARKETING STRATEGY MANAGER Multiple myeloma, remission status unspecified (HCC) EGFR STAT 07/13/2024 7:40 AM MARKETING STRATEGY MANAGER Multiple myeloma in relapse (HCC) DIFFERENTIAL AUTO STAT 07/13/2024 7:4 0 AM MARKETING STRATEGY MANAGER Multiple myeloma in relapse (HCC) IGA Routine 07/13/2024 7:40 AM MARKETING STRATEGY MANAGER Multiple myeloma, remission status unspecified (HCC) IGG Routine 07/13/2024 7:40 AM MARKETING STRATEGY MANAGER Multiple myeloma, remission status unspecified (HCC) IGM Routine 07/13/2024 7:40 AM MARKETING STRATEGY MANAGER Multiple myeloma, remission status unspecified (HCC) IMMUNOGLOBULIN FREE LIGHT CHAINS Routine 07/13/2024 7:40 AM MARKETING STRATEGY MANAGER Multiple myeloma, remission status unspecified (HCC) PROTEIN ELECTROPHORESIS, WITH REFLEX, SERUM Routine 07/13/2024 7:40 AM MARKETING STRATEGY MANAGER Multiple myeloma, remission status unspecified (HCC) IMMUNOTYPING Routine 07/13/2024 7:40 AM MARKETING STRATEGY MANAGER Multiple myeloma, remission status unspecified (HCC) LACTATE DEHYDROGENASE Routine 07/13/2024 7:40 AM MARKETING STRATEGY MANAGER Multiple myeloma in relapse (HCC) GAMMA GT STAT 07/13/2024 7:40 AM MARKETING STRATEGY MANAGER Multiple myeloma in relapse (HCC) MAGNESIUM STAT 07/13/2024 7:40 AM MARKETING STRATEGY MANAGER Multiple myeloma in relapse (HCC) COMPREHENSIVE METABOLIC PANEL STAT 07/13/2024 7:40 AM MARKETING STRATEGY MANAGER Multiple myeloma in relapse (HCC) CBC WITH AUTO DIFFERENTIAL STAT 07/13/2024 7:40 AM MARKETING STRATEGY MANAGER Multiple myeloma in relapse (HCC) APTT STAT 07/13/2024 7:24 AM MARKETING STRATEGY MANAGER Multiple myeloma in relapse (HCC) PROTIME-INR STAT 07/13/2024 7:24 AM MARKETING STRATEGY MANAGER Multiple myeloma in relapse (HCC) HEPATITIS [...] MD LAB BLOOD ORDER ELANA Final Result [facility] Department [place] [address] * (ABNORMAL) eGFR (09/28/2024 7:43 AM CDT) [...] BLOOD ORDER ELANA Final Result MT DUARTE [facility] Department [place] [address] * (ABNORMAL) eGFR (09/28/2024 7:43 AM CDT) [...] BLOOD ORDER ELANA Final Result MT Aranda [facility] Department [place] [address] * (ABNORMAL) Differential, auto (09/28/2024 7:43 AM CDT) Neutrophil abs 5.12 1.50 - 6.50 K/cumm Comment:Testing performed by : [facility]e [facility], [address] [place] [id number] Lymphocyte abs 0.72(L) 0.80 - 3.30 K/cumm [facility] Comment:Testing performed by : [facility], [address] [place], [place] [id number] Monocyte abs 0.50 0.20 - 0.80 K/cumm [facility] Comment:Testing performed by : [facility], [address] [place], [place] [id number] Eosinophil abs 0.15 0.00 - 0.50 K/cumm [facility] Comment:Testing performed by : [facility], [address] [place], [place] [id number] Basophil abs 0.04 0.00 - 0.10 K/cumm [facility] Comment:Testing performed by : [facility], [address] [place], [place] [id number] Neutrophil pct 78.4 % [facility] Comment: Interpretive Data Percent cell count reference ranges are not reported, since discordance with absolute values may lead to misinterpretation of CBC data. Current Interpretive Data was last revised on 2017. Testing performed by: [facility], [address] [place] [address] Lymphocyte pct 11.0 % [facility] Comment: Interpretive Data Percent cell count reference ranges are not reported, since discordance with absolute values may lead to misinterpretation of CBC data. Current Interpretive Data was last revised on 2017. Testing performed by: [facility] Heme [facility], [address] [place] [address] Monocyte pct 7.7 % [facility] Comment: Interpretive Data Percent cell count reference ranges are not reported, since discordance with absolute values may lead to misinterpretation of CBC data. Current Interpretive Data was last revised on 2017. Testing performed by: [facility] Heme [facility], [address] [place], [place] [phone] Eosinophil pct 2.3 % [facility] Comment: Interpretive Data Percent cell count reference ranges are not reported, since discordance with absolute values may lead to misinterpretation of CBC data. Current Interpretive Data was last revised on 2017. Testing performed by: [facility] Heme [facility], [address] [place] [address] Basophil pct 0.7 % MT SUAREZ Comment: Interpretive Data Percent cell count reference ranges are not reported, since discordance with absolute values may lead to misinterpretation of CBC data. Current Interpretive Data was last revised on 2017. Testing performed by: [facility] Heme Lab, [address] [place] [address] Blood 09/28/2024 7:43 AM CDT 09/28/2024 8:00 AM CDT Hermelindo Butler MD LAB BLOOD ORDER ELANA Final Result MT SUAREZ [facility] Department [place] [address] * (ABNORMAL) Immunoglobulin free light chains (09/28/2024 7:43 AM CDT) [place]/Lambda ratio [facility] See Comment 0.26 - 1.65 Comment: Unable to calculate exact result. Interpretive Data The Binding Site FreeLite assay procedure was used. Results from different manufacturers or methods may not be comparable. Serial testing should be performed using the same methods and instrumentation. Current Interpretive Data was last revised on 2023. [place] free light chain [facility] <0.06(L) 0.33 - 1.94 mg/dL MT DUARTE Comment: Interpretive Data The Binding Site FreeLite assay procedure was used. Results from different manufacturers or methods may not be comparable. Serial testing should be performed using the same methods and instrumentation. Current Interpretive Data was last revised on 2023. Lambda free light chain [facility] <0.14(L) 0.57 - 2.63 mg/dL MT DUARTE Comment: Interpretive Data The [...] ELANA Final Result MT SUAREZ [facility] Department [place] [address] * (ABNORMAL) CBC with auto differential (09/28/2024 7:43 AM CDT) WBC 6.53 3.80 - 9.90 K/cumm Comment:Testing performed by : [facility] [facility], [address] [place] [address] Hgb 11.5(L) 13.0 - 17.5 g/dL CERFRANK SUAREZ Comment:Testing performed by : [facility], [address] [place] [address] Hct 34.4(L) 38.9 - 50.3 % CERFRANK SUAREZ Comment:Testing performed by : [facility], [address] [place] [address] Plt 229 150 - 400 K/cumm CERFRANK SUAREZ Comment:Testing performed by : [facility], [address] [place] [address] MPV 7.0 6.8 - 10.4 fL CERFRANK BJ Comment:Testing performed by : [facility], [address] [place] [address] RBC 3.61(L) 4.30 - 5.80 M/cumm CERFRANK BJ Comment:Testing performed by : [facility], [address] [place] [address] MCV 95.2 81.3 - 96.4 fL CERFRANK BJ Comment:Testing performed by : [facility], [address] [place] [address] MCH 31.7 27.1 - 33.3 pg CERFRANK BJ Comment:Testing performed by : [facility], [address] [place] [id number] MCHC 33.3 32.3 - 35.7 g/dL [facility] Comment:Testing performed by : [facility], [address] [place], [place] [id number] RDW CV 15.6(H) 11.1 - 14.9 % [facility] Comment:Testing performed by : [facility], [address] [place], [place] [id number] NRBC abs 0.00 0.00 - 0.01 K/cumm [facility] Comment:Testing performed by : [facility], [address] [place], [place] [id number] Blood 09/28/2024 7:43 AM CDT 09/28/2024 8:00 AM CDT Hermelindo Butler MD LAB BLOOD ORDER ELANA Final Result Performing Organization Address [facility] Co de Phone Number [facility] [place] [address] * aPTT (09/28/2024 7:43 AM CDT) Pathologist [facility] aPTT 33 28 - 38 sec Comment: Interpretive Data Heparin therapeutic range: 66.0 - 100.0 seconds. Range based on correlation with therapeutic heparin activity range of 0.3 - 0.7 Units/mL. Current interpretive data was last revised on 2023. Blood 09/28/2024 7:43 AM CDT 09/28/2024 8:16 AM CDT Hermelindo Butler MD LAB BLOOD ORDER ELANA Final Result Performing Organization Address City/[facility] Co de Phone Number [facility] [place] [address] * Protime-INR (09/28/2024 7:43 AM CDT) Pathologist [facility] PT 11.9 9.7 - 13.0 sec INR 1.10 0.90 - 1.20 [facility] Department [place] [address] * (ABNORMAL) Protein electrophoresis with reflex, serum with interpretation (09/28/2024 7:43 AM CDT) Pathologist [facility] Protein, sr 5.6(L) 6.2 - 8.2 g/dL [...] MD LAB BLOOD ORDER ELANA Final Result [facility] [place] [address] * Magnesium (09/28/2024 7:43 AM CDT) [facility] Magnesium 2.2 1.4 - 2.5 mg/dL Blood 09/28/2024 7:43 AM CDT 09/28/2024 8:03 AM CDT Hermelindo Butler MD LAB BLOOD ORDER ELANA Final Result Performing Organization Address [facility] de Phone Number [facility] [place] [address] * Lactate dehydrogenase (LD) (09/28/2024 7:43 AM CDT) [facility] Lactate dehydrogenase (LDH) 132 100 - 250 Units/L Blood 09/28/2024 7:43 AM CDT 09/28/2024 8:03 AM CDT Hermelindo Butler MD LAB BLOOD ORDER ELANA Final Result Performing Organization Address City/[facility] Co de Phone Number [facility] Department [place] [address] * Gamma GT (09/28/2024 7:43 AM CDT) [facility] GGT 28 10 - 50 Units/L Blood 09/28/2024 7:43 AM CDT 09/28/2024 8:03 AM CDT Hermelindo Butler MD LAB BLOOD ORDER ELANA Final Result [facility] [place] [address] * (ABNORMAL) IgA (09/28/2024 7:43 AM CDT) Pathologist [facility] Immunoglobulin A <50(L) 70 - 400 mg/dL Blood 09/28/2024 7:43 AM CDT 09/28/2024 8:24 AM CDT Hermelindo Butler MD LAB BLOOD ORDER ELANA Final Result Performing Organization Address City/[facility] Co de Phone Number [facility] Department [place] [address] * (ABNORMAL) IgM (09/28/2024 7:43 AM CDT) Pathologist [facility] Immunoglobulin M <25(L) 40 - 230 mg/dL Blood 09/28/2024 7:43 AM CDT 09/28/2024 8:24 AM CDT Hermelindo Butler MD LAB BLOOD ORDER ELANA Final Result Performing Organization Address City/[facility] Co de Phone Number [facility] Department [place] [address] * (ABNORMAL) IgG (09/28/2024 7:43 AM CDT) [facility] Immunoglobulin G <300(L) 700 - 1,600 mg/dL Blood 09/28/2024 7:43 AM CDT 09/28/2024 8:24 AM CDT Hermelindo Butler MD LAB BLOOD ORDER ELANA Final Result Performing Organization Address City/[facility] Co de Phone Number [facility] [place] [address] * (ABNORMAL) Comprehensive metabolic panel (09/28/2024 7:43 [...] 7:43 AM CDT 09/28/2024 8:02 AM CDT us Hermelindo Butler MD LAB BLOOD ORDER ELANA Final Result [facility] Department [place] [address] * (ABNORMAL) Comprehensive metabolic panel (09/28/2024 7:43 AM CDT) Pathologist [facility] Sodium 143 135 - 145 mmol/L Potassium, pl 4.1 3.3 - 4.9 mmol/L [facility] Chloride 106 97 - 110 mmol/L [facility] CO2 27 22 - 32 mmol/L [facility] Anion gap 10 2 - 15 mmol/L [facility] BUN 31(H) 6 - 25 mg/dL [facility] Creatinine 1.80(H) 0.80 - 1.30 mg/dL [facility] Glucose 105 70 - 199 mg/dL [facility] [...] Protein, pl 6.1(L) 6.5 - 8.5 g/dL [facility] Albumin 4.0 3.5 - 5.0 g/dL [facility] Alk phos 61 40 - 130 Units/L [facility] ALT 13 7 - 55 Units/L [facility] AST 13 10 - 50 Units/L [facility] Blood 09/28/2024 7:43 AM CDT 09/28/2024 8:03 AM CDT us Hermelindo Butler MD LAB BLOOD ORDER ELANA Final Result [facility] Department [place] [address] * [place] INSJ NON-TUNNELED CENTRAL VENOUS CATH AGE 5 YR/> (09/15/2024 1:20 PM CDT) Narrative Lianna Denny PA - 09/15/2024 1:20 PM CDT Lianna Denny PA 09/15/2024 1:40 PM Midline Insertion Date/Time: 09/15/2024 1:20 PM Performed by: Lianna Denny PA Authorized by: Lianna Denny PA Rueter Protocol: RN Notified of Procedure: yes Informed consent: Risks, benefits, alternatives discussed and patient/credit resolution representative/guardian agrees and accepts Patient's stated name/ [...] * (ABNORMAL) eGFR (09/15/2024 3:52 AM CDT) [facility] eGFR 52(L) >=60 mL/min/1. 73 m2 Comment: [...] Santana MD LAB BLOOD ORDERABLES Final Result [facility] [address] Department [place] [address] * (ABNORMAL) CBC without differential (09/15/2024 3:52 AM CDT) WBC 6.46 3.80 - 9.90 K/cumm Hgb 10.1(L) 13.0 - 17.5 g/dL [facility] Hct 31.4(L) 38.9 - 50.3 % [facility] Plt 149(L) 150 - 400 K/cumm [facility] MPV 9.2 9.1 - 12.3 fL [facility] RBC 3.20(L) 4.30 - 5.80 M/cumm [facility] MCV 98.1(H) 81.3 - 96.4 fL [facility] MCH 31.6 27.1 - 33.3 pg [facility] MCHC 32.2(L) 32.3 - 35.7 g/dL [facility] RDW CV 14.9 11.1 - 14.9 % [facility] RDW SD 54.3(H) 35.7 - 48.1 fL [facility] NRBC abs 0.00 0.00 - 0.01 K/cumm [facility] Blood 09/15/2024 3:52 AM CDT 09/15/2024 4:02 AM CDT us Emory Santana MD LAB BLOOD ORDERABLES Final Result [facility] [address] Department [place] [address] * (ABNORMAL) Basic metabolic panel (09/15/2024 3:52 AM CDT) Sodium 143 135 - 145 mmol/L Potassium, pl 3.2(L) 3.3 - 4.9 mmol/L [facility] Chloride 105 97 - 110 mmol/L [facility] CO2 28 22 - 32 mmol/L [facility] Anion gap 10 2 - 15 mmol/L [facility] BUN 12 6 - 25 mg/dL [facility] Creatinine 1.45(H) 0.80 - 1.30 mg/dL [facility] Glucose 110 70 - 199 mg/dL [facility] Comment: Interpretive Data Fasting glucose >/= [...] 2022. Calcium 8.2(L) 8.5 - 10.3 mg/dL [facility] Blood 09/15/2024 3:52 AM CDT 09/15/2024 4:02 AM CDT Emory Santana MD LAB BLOOD ORDERABLES Final Result Performing Organization Address [facility] Co de Phone Number [facility] [address] Department [place] [employer] [place] [address] * (ABNORMAL) eGFR (09/14/2024 2:25 AM CDT) Pathologist [facility] eGFR 48(L) >=60 mL/min/1. 73 m2 Comment: [...] BLOOD ORDERABLES Final Result Performing Organization Address City/[facility]/ZIP Co de Phone Number [facility] [address] Department of Laboratories [place], [place] [id number] * (ABNORMAL) CBC without differential (09/14/2024 2:25 AM CDT) Pathologist [facility] WBC 5.62 3.80 - 9.90 K/cumm Hgb 10.0(L) 13.0 - 17.5 g/dL [facility] Hct 31.1(L) 38.9 - 50.3 % [facility] Plt 163 150 - 400 K/cumm [facility] MPV 9.3 9.1 - 12.3 fL [facility] RBC 3.15(L) 4.30 - 5.80 M/cumm [facility] MCV 98.7(H) 81.3 - 96.4 fL [facility] MCH 31.7 27.1 - 33.3 pg [facility] MCHC 32.2(L) 32.3 - 35.7 g/dL [facility] RDW CV 15.4(H) 11.1 - 14.9 % [facility] RDW SD 55.6(H) 35.7 - 48.1 fL [facility] NRBC abs 0.00 0.00 - 0.01 K/cumm [facility] Blood 09/14/2024 2:25 AM CDT 09/14/2024 2:44 AM CDT us Emory Santana MD LAB BLOOD ORDERABLES Final Result [facility] [address] Department [place] [address] * (ABNORMAL) Basic metabolic panel (09/14/2024 2:25 AM CDT) Sodium 146(H) 135 - 145 mmol/L Potassium, pl 3.3 3.3 - 4.9 mmol/L [facility] Chloride 108 97 - 110 mmol/L [facility] CO2 27 22 - 32 mmol/L [facility] Anion gap 11 2 - 15 mmol/L [facility] BUN 18 6 - 25 mg/dL [facility] Creatinine 1.53(H) 0.80 - 1.30 mg/dL [facility] Glucose 116 70 - 199 mg/dL [facility] Comment: Interpretive Data Fasting glucose >/= [...] Calcium 8.1(L) 8.5 - 10.3 mg/dL [facility] Blood 09/14/2024 2:25 AM CDT 09/14/2024 2:44 AM CDT us Emory Santana MD LAB BLOOD ORDERABLES Final Result [facility] [address] Department [place] [address] * (ABNORMAL) eGFR (09/13/2024 3:21 AM CDT) [...] Santana MD LAB BLOOD ORDERABLES Final Result [facility] [address] Department [place] [address] * (ABNORMAL) CBC without differential (09/13/2024 3:21 AM CDT) [facility] WBC 5.46 3.80 - 9.90 K/cumm Hgb 10.1(L) 13.0 - 17.5 g/dL [facility] Hct 30.8(L) 38.9 - 50.3 % [facility] Plt 160 150 - 400 K/cumm [facility] MPV 9.7 9.1 - 12.3 fL [facility] RBC 3.15(L) 4.30 - 5.80 M/cumm [facility] MCV 97.8(H) 81.3 - 96.4 fL [facility] MCH 32.1 27.1 - 33.3 pg [facility] MCHC 32.8 32.3 - 35.7 g/dL [facility] RDW CV 15.7(H) 11.1 - 14.9 % [facility] RDW SD 56.4(H) 35.7 - 48.1 fL [facility] NRBC abs 0.00 0.00 - 0.01 K/cumm [facility] Blood 09/13/2024 3:21 AM CDT 09/13/2024 3:48 AM CDT us Emory Santana MD LAB BLOOD ORDERABLES Final Result [facility] [address] Department [place] [address] * (ABNORMAL) Basic metabolic panel (09/13/2024 3:21 AM CDT) [facility] Sodium 141 135 - 145 mmol/L Potassium, pl 3.3 3.3 - 4.9 mmol/L [facility] Chloride 105 97 - 110 mmol/L [facility] CO2 24 22 - 32 mmol/L [facility] Anion gap 12 2 - 15 mmol/L [facility] BUN 24 6 - 25 mg/dL [facility] Creatinine 1.55(H) 0.80 - 1.30 mg/dL [facility] Glucose 115 70 - 199 mg/dL [facility] Comment: Interpretive Data Fasting glucose >/= [...] 2022. Calcium 8.1(L) 8.5 - 10.3 mg/dL [facility] Blood 09/13/2024 3:21 AM CDT 09/13/2024 3:48 AM CDT us Emory Santana MD LAB BLOOD ORDERABLES Final Result [facility] [address] Department [place] [address] * TRANSTHORACIC ECHO (TTE) COMPLETE W DOPPLER/CF WO CONTRAST (09/12/2024 2:39 PM CDT) LV EF 55-60 % CONS SCIMAGE Anatomical Region Laterality Modality Ultrasound 09/12/2024 12:1 1 PM CDT Narrative 09/12/2024 2:42 PM CDT [facility] [address] [address] ECHOCARDIOGRAM Patient Name: BUFFY VALLECarl : 1950 (73y 9m) Gender: M Study Date: 09/12/2024 12:11:05 PM Ht(Inch): 69 Wt(Lb): 275.57 BSA: 2.47 Supervisor [place]: TC Location: [id number] Order Provider: ANUP SIN BMI: 40.69 BP: [...] Procedure Note Choco Thomas MD - 09/12/2024 [facility] [address] [place] [address] ECHOCARDIOGRAM Patient Name: TORIBUFFY B : 1950 (73y 9m) Gender: M Study Date: 09/12/2024 12:11:05 PM Ht(Inch): 69 Wt(Lb): 275.57 BSA: 2.47 Supervisor [place]: JIM Location: [id number] Order Provider: ANUP SIN BMI: 40.69 BP: [...] * (ABNORMAL) eGFR (09/12/2024 3:14 AM CDT) [facility] eGFR 36(L) >=60 mL/min/1. 73 m2 Comment: [...] Santana MD LAB BLOOD ORDERABLES Final Result [facility] [address] Department [place] [address] * (ABNORMAL) CBC without differential (09/12/2024 3:14 AM CDT) [facility] WBC 7.12 3.80 - 9.90 K/cumm Hgb 10.3(L) 13.0 - 17.5 g/dL [facility] Hct 31.8(L) 38.9 - 50.3 % [facility] Plt 150 150 - 400 K/cumm [facility] MPV 9.5 9.1 - 12.3 fL [facility] RBC 3.23(L) 4.30 - 5.80 M/cumm [facility] MCV 98.5(H) 81.3 - 96.4 fL [facility] MCH 31.9 27.1 - 33.3 pg [facility] MCHC 32.4 32.3 - 35.7 g/dL [facility] RDW CV 15.9(H) 11.1 - 14.9 % [facility] RDW SD 57.1(H) 35.7 - 48.1 fL [facility] NRBC abs 0.00 0.00 - 0.01 K/cumm [facility] Blood 09/12/2024 3:14 AM CDT 09/12/2024 3:35 AM CDT us Emory Santana MD LAB BLOOD ORDERABLES Final Result [facility] [address] Department [place] [address] * (ABNORMAL) Basic metabolic panel (09/12/2024 3:14 AM CDT) Sodium 139 135 - 145 mmol/L Potassium, pl 3.3 3.3 - 4.9 mmol/L [facility] Chloride 101 97 - 110 mmol/L [facility] CO2 23 22 - 32 mmol/L [facility] Anion gap 15 2 - 15 mmol/L [facility] BUN 31(H) 6 - 25 mg/dL [facility] Creatinine 1.96(H) 0.80 - 1.30 mg/dL [facility] Glucose 114 70 - 199 mg/dL [facility] Comment: Interpretive Data Fasting glucose >/= [...] 2022. Calcium 8.4(L) 8.5 - 10.3 mg/dL [facility] Blood 09/12/2024 3:14 AM CDT 09/12/2024 3:34 AM CDT us Emory Santana MD LAB BLOOD ORDERABLES Final Result Performing Organization Address [facility]/ZIP Co de Phone Number [facility] [address] Department [place] [address] * (ABNORMAL) eGFR (09/11/2024 4:59 AM CDT) [...] BLOOD ORDERABLES Final Result Performing Organization Address City/[facility]/ZIP Co de Phone Number [facility] [address] Department [place] [place] [address] * Blood culture Blood (09/11/2024 4:59 AM CDT) Report Final Report: No growth Blood 09/11/2024 4:59 AM CDT 09/11/2024 5:09 AM CDT Narrative [facility] - 09/16/2024 7:01 AM CDT From [...] organism identification may be performed using the [employer] Blood Culture Identification panel. This assay detects microbial DNA in a blood culture broth. This assay has been cleared by the [place] Food and Drug Administration and its performance characteristics have been verified by the [facility]. Interpretive data was last revised on July 11, 2022. Emory Santana MD LAB MICROBIOLOGY - GENERAL ORDERABLES Final Result [facility] [address] Department [place] [address] * Blood culture Blood (09/11/2024 4:59 AM CDT) Report Final Report: No growth Blood 09/11/2024 4:59 AM CDT 09/11/2024 5:09 AM CDT Narrative [facility] - 09/16/2024 7:01 AM CDT Collection->Peripheral [...] organism identification may be performed using the [employer] Blood Culture Identification panel. This assay detects microbial DNA in a blood culture broth. This assay has been cleared by the [place] Food and Drug Administration and its performance characteristics have been verified by the [facility]biology [facility]. Interpretive data was last revised on July 11, 2022. Emory Santana MD LAB MICROBIOLOGY - GENERAL ORDERABLES Final Result Performing Organization Address [facility]/ZIP Co de Phone Number [facility] [address] [employer] [place] [address] * (ABNORMAL) CBC without differential (09/11/2024 4:59 AM CDT) WBC 11.33(H) 3.80 - 9.90 K/cumm Hgb 10.8(L) 13.0 - 17.5 g/dL [facility] Hct 33.2(L) 38.9 - 50.3 % [facility] Plt 138(L) 150 - 400 K/cumm [facility] MPV 9.5 9.1 - 12.3 fL [facility] RBC 3.37(L) 4.30 - 5.80 M/cumm [facility] MCV 98.5(H) 81.3 - 96.4 fL [facility] MCH 32.0 27.1 - 33.3 pg [facility] MCHC 32.5 32.3 - 35.7 g/dL [facility] RDW CV 15.9(H) 11.1 - 14.9 % [facility] RDW SD 57.7(H) 35.7 - 48.1 fL [facility] NRBC abs 0.00 0.00 - 0.01 K/cumm [facility] Blood 09/11/2024 4:59 AM CDT 09/11/2024 5:08 AM CDT Emory Santana MD LAB BLOOD ORDERABLES Final Result [facility] [address] Department [place] [address] * (ABNORMAL) Basic metabolic panel (09/11/2024 4:59 AM CDT) Pathologist [facility] Sodium 139 135 - 145 mmol/L Potassium, pl 3.7 3.3 - 4.9 mmol/L [facility] Chloride 102 97 - 110 mmol/L [facility] CO2 23 22 - 32 mmol/L [facility] Anion gap 14 2 - 15 mmol/L [facility] BUN 39(H) 6 - 25 mg/dL [facility] Creatinine 2.45(H) 0.80 - 1.30 mg/dL [facility] Glucose 131 70 - 199 mg/dL [facility] Comment: Interpretive Data Fasting glucose >/= [...] 2022. Calcium 8.8 8.5 - 10.3 mg/dL [facility] Blood 09/11/2024 4:59 AM CDT 09/11/2024 5:07 AM CDT us Emory Santana MD LAB BLOOD ORDERABLES Final Result [facility] [address] Department [place] [address] * (ABNORMAL) Urinalysis reflex to microscopic and culture Urine, indwelling catheter (09/11/2024 4:07AM CDT) Color, ur Yellow Yellow Clarity, ur Clear Clear [facility] Specific gravity, ur 1.013 1.003 - 1.030 [facility] pH, urine 5.5 [facility] Comment: Interpretive Data U rine pH is affected by diet, medications, systemic acid-base disturbances, and renal tubular function. pH may affect urinary stone formation. For example, urine pH below 6.0 may help reduce the tendency for calcium phosphate stones and pH greater than 6.0 may reduce the tendency for uric acid stone formation. Source: [facility] [employer] Current Interpretive Data was last revised on 2017 Protein, ur ql Trace Negative [facility] Glucose, ur ql Negative Negative [facility] Ketones, ur Negative Negative [facility] Bilirubin, ur Negative Negative [facility] Blood, ur 1+(A) Negative [facility] Urobilinogen, ur <2.0 <2.0 mg/dL [facility] Nitrite, ur Negative Negative [facility] Leukocyte esterase, ur 2+(A) Negative [facility] UA reflex comment Reflex to microscopic UA will be performed. [facility] Urine, indwelling catheter 09/11/2024 4:07 AM CDT 09/11/2024 4:07 AM CDT Emory Santana MD LAB MICROBIOLOGY - GENERAL ORDERABLES Final Result Performing Organization Address [facility] Co de Phone Number [facility] [address] Department [place] [address] * (ABNORMAL) Urinalysis, microscopic only (09/11/2024 4:07 AM CDT) WBC, ur 11-20(A) 0 - 5 /HPF RBC, ur 3-5(A) 0 - 2 /HPF [facility] Culture Reflex Comment Reflex to urine culture will be performed. [facility] Urine, indwelling catheter 09/11/2024 4:07 AM CDT 09/11/2024 4:14 AM CDT us Emory Santana MD LAB URINE ORDERABLES Final Result Performing Organization Address [facility] Co de Phone Number [facility] [address] Department [place] [address] * (ABNORMAL) Urine culture Urine, indwelling catheter (09/11/2024 4:07 AM CDT) Report Final Report: Less than 10,000 colonies/ml of Gram Positive Organism No further workup. (.) Organism GRAM POSITIVE ORGANISM [facility] Urine, indwelling catheter 09/11/2024 4:07 AM CDT 09/11/2024 6:47 AM CDT Narrative [facility] - 09/13/2024 7:16 AM CDT Urine culture reflexed based upon urinalysis results. us Emory Santana MD LAB MICROBIOLOGY - GENERAL ORDERABLES Final Result Performing Organization Address [facility] Co de Phone Number [facility] [address] Department of Laboratories [place], [place] [phone] * (ABNORMAL) eGFR (09/11/2024 2:32 AM CDT) [...] ORDERABLES Final Result Performing Organization Address [facility] Co de Phone Number [facility] [address] Department of [employer] [place], [place] [phone] * (ABNORMAL) Differential, auto (09/11/2024 2:32 AM CDT) Neutrophil abs 12.22(H) 1.50 - 6.50 K/cumm Imm gran abs 0.10 0.00 - 0.10 K/cumm [facility] Lymphocyte abs 0.79(L) 0.80 - 3.30 K/cumm [facility] Monocyte abs 1.12(H) 0.20 - 0.80 K/cumm [facility] Eosinophil abs 0.00 0.00 - 0.50 K/cumm [facility] Basophil abs 0.03 0.00 - 0.10 K/cumm [facility] Neutrophil pct 85.7 % [facility] Comment: Interpretive Data Percent cell count reference ranges are not reported, since discordance with absolute values may lead to misinterpretation of CBC data. Current Interpretive Data was last revised on 2017. Imm gran pct 0.7 % [facility] Comment: Interpretive Data Percent cell count reference ranges are not reported, since discordance with absolute values may lead to misinterpretation of CBC data. Current Interpretive Data was last revised on 2017. Lymphocyte pct 5.5 % [facility] Comment: Interpretive Data Percent cell count reference ranges are not reported, since discordance with absolute values may lead to misinterpretation of CBC data. Current Interpretive Data was last revised on 2017. Monocyte pct 7.9 % [facility] Comment: Interpretive Data Percent cell count reference ranges are not reported, since discordance with absolute values may lead to misinterpretation of CBC data. Current Interpretive Data was last revised on 2017. Eosinophil pct 0.0 % [facility] Comment: Interpretive Data Percent cell count reference ranges are not reported, since discordance with absolute values may lead to misinterpretation of CBC data. Current Interpretive Data was last revised on 2017. Basophil pct 0.2 % [facility] Comment: Interpretive Data Percent cell count reference ranges are not reported, since discordance with absolute values may lead to misinterpretation of CBC data. Current Interpretive Data was last revised on 2017. Blood 09/11/2024 2:32 AM CDT 09/11/2024 2:46 AM CDT Emory Santana MD LAB BLOOD ORDERABLES Final Result Performing Organization Address [facility] Co de Phone Number [facility] [address] Department [place] [address] * (ABNORMAL) CBC with auto differential (09/11/2024 2:32 AM CDT) [facility] WBC 14.26(H) 3.80 - 9.90 K/cumm Hgb 11.6(L) 13.0 - 17.5 g/dL [facility] Hct 34.8(L) 38.9 - 50.3 % [facility] Plt 171 150 - 400 K/cumm [facility] MPV 9.8 9.1 - 12.3 fL [facility] RBC 3.59(L) 4.30 - 5.80 M/cumm [facility] MCV 96.9(H) 81.3 - 96.4 fL [facility] MCH 32.3 27.1 - 33.3 pg [facility] MCHC 33.3 32.3 - 35.7 g/dL [facility] RDW CV 16.1(H) 11.1 - 14.9 % [facility] RDW SD 57.1(H) 35.7 - 48.1 fL [facility] NRBC abs 0.00 0.00 - 0.01 K/cumm [facility] Blood 09/11/2024 2:32 AM CDT 09/11/2024 2:46 AM CDT Emory Santana MD LAB BLOOD ORDERABLES Final Result Performing Organization Address [facility] Co de Phone Number [facility] [address] Department [place] [place] [address] * aPTT (09/11/2024 2:32 AM CDT) [facility] aPTT 32 28 - 38 sec Comment: Interpretive Data Heparin therapeutic range: 66.0 - 100.0 seconds. Range based on correlation with therapeutic heparin activity range of 0.3 - 0.7 Units/mL. Current interpretive data was last revised on 2023. Blood 09/11/2024 2:32 AM CDT 09/11/2024 2:46 AM CDT us Emory Santana MD LAB BLOOD ORDERABLES Final Result Performing Organization Address [facility]/ZIP Co de Phone Number [facility] [address] Department [place] [address] * (ABNORMAL) Protime-INR (09/11/2024 2:32 AM CDT) PT 16.4(H) 9.7 - 13.0 sec INR 1.51(H) 0.90 - 1.20 [facility] Comment: Interpretive data Oral anticoagulant therapeutic [...] ORDERABLES Final Result Performing Organization Address [facility] Co de Phone Number [facility] [address] Department [place] [address] * Vancomycin level random (09/11/2024 2:32 AM CDT) Vancomycin random <4.0 mcg/mL Comment: Interpretive Data No reference ranges have been established for random drug levels. Current Interpretive Data was last revised on 2020. Blood 09/11/2024 2:32 AM CDT 09/11/2024 2:46 AM CDT us Emory Santana MD LAB BLOOD ORDERABLES Final Result Performing Organization Address City/[facility] Co de Phone Number [facility] [address] Department [place] [address] * (ABNORMAL) Comprehensive metabolic panel (09/11/2024 2:32 AM CDT) Sodium 140 135 - 145 mmol/L Potassium, pl 3.7 3.3 - 4.9 mmol/L [facility] Chloride 103 97 - 110 mmol/L [facility] CO2 22 22 - 32 mmol/L [facility] Anion gap 15 2 - 15 mmol/L [facility] BUN 35(H) 6 - 25 mg/dL [facility] Creatinine 2.36(H) 0.80 - 1.30 mg/dL [facility] Glucose 128 70 - 199 mg/dL [facility] Comment: Interpretive Data Fasting glucose >/= [...] 2022. Calcium 8.7 8.5 - 10.3 mg/dL [facility] Bilirubin, total 1.0 0.1 - 1.2 mg/dL [facility] Protein, pl 6.2(L) 6.5 - 8.5 g/dL [facility] Albumin 3.8 3.5 - 5.0 g/dL [facility] Alk phos 63 40 - 130 Units/L [facility] ALT 13 7 - 55 Units/L [facility] AST 15 10 - 50 Units/L [facility] Blood 09/11/2024 2:32 AM CDT 09/11/2024 2:46 AM CDT us Emory Santana MD LAB BLOOD ORDERABLES Final Result [facility] [address] Department [place] [address] * Differential, auto (08/31/2024 8:12 AM CDT) Neutrophil abs 6.0 1.5 - 6.5 K/cumm Comment:Testing performed by : [facility], [address] [place], [place] [id number] Lymphocyte abs 1.0 0.8 - 3.3 K/cumm [facility] Comment:Testing performed by : [facility], [address] [place] [phone] Monocyte abs 0.6 0.2 - 0.8 K/cumm [facility] Comment:Testing performed by : [facility], [address] [place], [place] [id number] Eosinophil abs 0.3 0.0 - 0.5 K/cumm [facility] Comment:Testing performed by : [facility], [address] [place] [phone] Basophil abs 0.1 0.0 - 0.1 K/cumm [facility] Comment:Testing performed by : [facility], [address] [place] [phone] Neutrophil pct 75.2 % [facility] Comment: Interpretive Data Percent cell count reference ranges are not reported, since discordance with absolute values may lead to misinterpretation of CBC data. Current Interpretive Data was last revised on 2017. Testing performed by: [facility], [address] [place] [phone] Lymphocyte pct 12.4 % [facility] Comment: Interpretive Data Percent cell count reference ranges are not reported, since discordance with absolute values may lead to misinterpretation of CBC data. Current Interpretive Data was last revised on 2017. Testing performed by: [facility], [address] [place], [place] [phone] Monocyte pct 7.9 % [facility] Comment: Interpretive Data Percent cell count reference ranges are not reported, since discordance with absolute values may lead to misinterpretation of CBC data. Current Interpretive Data was last revised on 2017. Testing performed by: [facility], [address] [place] [phone] Eosinophil pct 3.9 % [facility] Comment: Interpretive Data Percent cell count reference ranges are not reported, since discordance with absolute values may lead to misinterpretation of CBC data. Current Interpretive Data was last revised on 2017. Testing performed by: [facility], [address] [place], [place] [phone] Basophil pct 0.6 % [facility] Comment: Interpretive Data Percent cell count reference ranges are not reported, since discordance with absolute values may lead to misinterpretation of CBC data. Current Interpretive Data was last revised on 2017. Testing performed by: [facility], [address] [place], [place] [phone] Blood 08/31/2024 8:12 AM CDT 08/31/2024 8:16 AM CDT Hermelindo Butler MD LAB BLOOD ORDER ELANA Final Result [facility] Department [place] [address] * (ABNORMAL) CBC with auto differential (08/31/2024 8:12 AM CDT) WBC 8.0 3.8 - 9.9 K/cumm Comment:Testing performed by : [facility], [address] [place] [phone] Hgb 12.7(L) 13.0 - 17.5 g/dL [facility] Comment:Testing performed by : [facility], [address] [place] [address] Hct 37.8(L) 38.9 - 50.3 % [facility] Comment:Testing performed by : [facility], [address] [place] [address] Plt 176 150 - 400 K/cumm [facility] Comment:Testing performed by : [facility], [address] [place] [address] MPV 7.7 6.8 - 10.4 fL [facility] Comment:Testing performed by : [facility], [address] [place] [address] RBC 4.07(L) 4.30 - 5.80 M/cumm [facility] Comment:Testing performed by : [facility], [address] [place] [address] MCV 92.8 81.3 - 96.4 fL [facility] Comment:Testing performed by : [facility], [address] [place] [address] MCH 31.2 27.1 - 33.3 pg [facility] Comment:Testing performed by : [facility], [address] [place] [address] MCHC 33.6 32.3 - 35.7 g/dL [facility] Comment:Testing performed by : [facility], [address] [place] [address] RDW CV 16.1(H) 11.1 - 14.9 % [facility] Comment:Testing performed by : [facility], [address] [place] [address] NRBC abs 0.00 0.00 - 0.01 K/cumm [facility] Comment:Testing performed by : [facility], [address] [place] [address] Blood 08/31/2024 8:12 AM CDT 08/31/2024 8:16 AM CDT us Hermelindo Butler MD LAB BLOOD ORDER ELANA Final Result [facility] Department [place] [address] * Type and screen (08/31/2024 8:12 AM CDT) ABO Rh A Positive Yehuda, indirect Negative [facility] Comment:Patient has previous antibody history Blood 08/31/2024 8:12 AM CDT 08/31/2024 8:25 AM CDT Narrative [facility] - 08/31/2024 9:28 AM CDT Has the patient had Daratumumab or Isatuximab in the past 6 months?->Unknown Hermelindo Butler MD LAB BLOOD BANK TEST ORDERABLES Final Result Performing Organization Address City/[facility] Co de Phone Number [facility] Department [place] [address] * Immunotyping, serum with interpretation (08/31/2024 8:12 AM CDT) Immunosubtraction Please see comment Comment: NO PARAPROTEIN DETECTED Reviewed and signed by Ivan Sims MD, PhD 09/01/2024 Blood 08/31/2024 8:12 AM CDT 08/31/2024 9:34 AM CDT Hermelindo Butler MD LAB BLOOD ORDER ELANA Final Result Performing Organization Address [facility] de Phone Number [facility] Department [place] [address] * (ABNORMAL) eGFR (08/31/2024 8:12 AM CDT) [...] CDT Hermelindo Butler MD LAB BLOOD ORDER LEANA Final Result [facility] Department [place] [address] * (ABNORMAL) Immunoglobulin free light chains (08/31/2024 8:12 AM CDT) [place]/Lambda ratio [facility] See Comment 0.26 - 1.65 Comment: Unable to calculate exact result. Interpretive Data The Binding Site FreeLite assay procedure was used. Results from different manufacturers or methods may not be comparable. Serial testing should be performed using the same methods and instrumentation. Current Interpretive Data was last revised on 2023. [place] free light chain [facility] <0.06(L) 0.33 - [...] chain [facility] <0.14(L) 0.57 - 2.63 mg/dL [facility] Comment: Interpretive Data The Binding Site FreeLite assay procedure was used. Results from different manufacturers or methods may not be comparable. Serial testing should be performed using the same methods and instrumentation. Current Interpretive Data was last revised on 2023. Blood 08/31/2024 8:12 AM CDT 08/31/2024 9:34 AM CDT Hermelindo Butler MD LAB BLOOD ORDER ELANA Final Result Performing Organization Address City/[facility] Co de Phone Number [facility] [place] [address] * (ABNORMAL) aPTT (08/31/2024 8:12 AM CDT) [...] ELANA Final Result Performing Organization Address [facility] de Phone Number [facility] [place] [address] * Protime-INR (08/31/2024 8:12 AM CDT) PT [...] ORDER ELANA Final Result Performing Organization Address City/[facility] Co de Phone Number [facility] Department [place] [address] * (ABNORMAL) Protein electrophoresis with reflex, serum with interpretation (08/31/2024 8:12 AM CDT) [facility] Protein, sr 6.0(L) 6.2 - 8.2 g/dL [...] ORDER ELANA Final Result Performing Organization Address City/[facility] Co de Phone Number [facility] Department [place] [address] * Magnesium (08/31/2024 8:12 AM CDT) [facility] Magnesium 1.8 1.4 - 2.5 mg/dL Blood 08/31/2024 8:12 AM CDT 08/31/2024 8:20 AM CDT Hermelindo Butler MD LAB BLOOD ORDER ELANA Final Result [facility] Department [place] [address] * Lactate dehydrogenase (LD) (08/31/2024 8:12 AM CDT) [facility] Lactate dehydrogenase (LDH) 155 100 - 250 Units/L Blood 08/31/2024 8:12 AM CDT 08/31/2024 8:20 AM CDT Hermelindo Butler MD LAB BLOOD ORDER ELANA Final Result [facility] [place] [address] * Gamma GT (08/31/2024 8:12 AM CDT) [facility] GGT 27 10 - 50 Units/L Blood 08/31/2024 8:12 AM CDT 08/31/2024 8:20 AM CDT Hermelindo Butler MD LAB BLOOD ORDER ELANA Final Result [facility] [place] [address] * (ABNORMAL) IgA (08/31/2024 8:12 AM CDT) [facility] Immunoglobulin A <50(L) 70 - 400 mg/dL Blood 08/31/2024 8:12 AM CDT 08/31/2024 8:38 AM CDT Hermelindo Butler MD LAB BLOOD ORDER ELANA Final Result [facility] [place] [address] * (ABNORMAL) IgM (08/31/2024 8:12 AM CDT) [facility] Immunoglobulin M <25(L) 40 - 230 mg/dL Blood 08/31/2024 8:12 AM CDT 08/31/2024 8:38 AM CDT Hermelindo Butler MD LAB BLOOD ORDER ELANA Final Result Performing Organization Address City/[facility] Co de Phone Number [facility] Department [place] [address] * (ABNORMAL) IgG (08/31/2024 8:12 AM CDT) [facility] Immunoglobulin G <300(L) 700 - 1,600 mg/dL Blood 08/31/2024 8:12 AM CDT 08/31/2024 8:38 AM CDT Hermelindo Butler MD LAB BLOOD ORDER ELANA Final Result Performing Organization Address [facility] de Phone Number [facility] Department [place] [address] * (ABNORMAL) Comprehensive metabolic panel (08/31/2024 8:12 AM CDT) [facility] Sodium 141 135 - 145 mmol/L [...] Calcium 9.4 8.5 - 10.3 mg/dL [facility] Bilirubin, total 0.4 0.1 - 1.2 mg/dL [facility] Protein, pl 6.5 6.5 - 8.5 g/dL [facility] Albumin 4.1 3.5 - 5.0 g/dL [facility] Alk phos 65 40 - 130 Units/L [facility] ALT 16 7 - 55 Units/L [facility] AST 15 10 - 50 Units/L [facility] Blood 08/31/2024 8:12 AM CDT 08/31/2024 8:20 AM CDT Hermelindo Butler MD LAB BLOOD ORDER ELANA Final Result [facility] Department [place] [address] * SCAN - LABS (08/30/2024) us Provider [...] [facility] Department [place] [address] * (ABNORMAL) Differential, auto (08/26/2024 12:25 AM CDT) Neutrophil abs 5.3 1.5 - 6.5 K/cumm Imm gran abs 0.0 0.0 - 0.1 K/cumm [facility] Lymphocyte abs 0.7(L) 0.8 - 3.3 K/cumm [facility] Monocyte abs 0.6 0.2 - 0.8 K/cumm [facility] Eosinophil abs 0.3 0.0 - 0.5 [...] revised on 2017. Lymphocyte pct 10.4 % [facility] Comment: Interpretive Data Percent cell count [...] [facility] Department [place] [address] * (ABNORMAL) CBC with auto differential (08/26/2024 [...] ORDERABLES Final Result Performing Organization Address [facility] Co de Phone Number [facility] [place] [address] * Type and screen (08/26/2024 12:25 AM [...] ORDERA BLES Final Result Performing Organization Address [facility] [place] [address] * (ABNORMAL) Uric acid (08/26/2024 12:25 AM CDT) Uric acid 8.6(H) 3.0 - 8.0 mg/dL Blood 08/26/2024 12:2 5 AM CDT 08/26/2024 12:35 AM CDT Narrative [facility] - 08/26/2024 1:10 AM CDT Friday and only. Morning draw. . us Karlos Hargrove MD LAB BLOOD ORDERABLES Final Result Performing Organization Address [facility] Co de Phone Number [facility] [place] [address] * Phosphorus (08/26/2024 12:25 AM CDT) Phosphorus, pl 3.6 2.3 - 4.5 mg/dL Blood 08/26/2024 12:2 5 AM CDT 08/26/2024 12:35 AM CDT us Karlos Hargrove MD LAB BLOOD ORDERABLES Final Result Performing Organization Address City/[facility] Co de Phone Number [facility] [place] [place] [address] * Magnesium (08/26/2024 12:25 AM CDT) [facility] Magnesium 1.7 1.4 - 2.5 mg/dL Blood 08/26/2024 12:2 5 AM CDT 08/26/2024 12:35 AM CDT us Karlos Hargrove MD LAB BLOOD ORDERABLES Final Result Performing Organization Address [facility] de Phone Number [facility] [place] [address] * Lactate dehydrogenase (LD) (08/26/2024 12:25 AM CDT) [facility] Lactate dehydrogenase (LDH) 167 100 - 250 Units/L Blood 08/26/2024 12:2 5 AM CDT 08/26/2024 12:35 AM CDT Narrative [facility] - 08/26/2024 1:10 AM CDT Friday and only. Morning draw. us Karlos Hargrove MD LAB BLOOD ORDERABLES Final Result Performing Organization Address City/[facility] Co de Phone Number [facility] [place] [address] * (ABNORMAL) Comprehensive metabolic panel (08/26/2024 12:25 [...] [facility] Department [place] [address] * US Vein Duplex Lower Extremity Bilateral Complete (08/25/2024 9:30 AM CDT) Anatomical Region Laterality Modality Vascular Bilateral Ultrasound 08/25/2024 8:37 AM CDT Narrative 08/27/2024 11:10 AM CDT [facility] - Department of Vascular Surgery, Vascular Laboratory [address] [place] [address] Lower Extremity Venous Ultrasound Report Patient Name: BUFFY VALLE B : 1950 (73y 8m) Study Date: 08/25/2024 8:37:41 AM Gender: M Tech: Location: [id number] Ref Provider: OLGA KEITH Quality: Adequate Order Provider: OLGA KEITH PROCEDURES: Vascular Report: Venous Duplex imaging was performed bilaterally in the lower extremities. The common femoral, femoral, popliteal, posterior tibial, peroneal veins were evaluated for patency, spontaneity and phasicity with Doppler, compression and augmentation maneuvers. Great saphenous vein proximal at the junction was evaluated with compression maneuvers. INDICATIONS: Localized edema. FINDINGS: Performing Supervisor [place]: Farzana Owens RVT. Bilateral: Venous Doppler signals [...] above. Electronically Signed By: Cesar Cabello MD [facility] [phone] 08/27/2024 10:10:26 AM CDT Procedure Note Cesar Cabello MD - 08/27/2024 [facility] [employer] [facility] - Department of Vascular Surgery,Vascular Laboratory [address] [place] [address] Lower Extremity Venous Ultrasound Report Patient Name: BUFFY VALLECarl : 1950 (73y 8m) Study Date: 08/25/2024 8:37:41 AM Gender: M Tech: Location: [id number] Ref Provider: OLGA KEITH Quality: Adequate Order Provider: OLGA KEITH PROCEDURES: Vascular Report: Venous Duplex imaging was performed bilaterally in the lower extremities.The common femoral, femoral, popliteal, posterior tibial, peroneal veins wereevaluated for patency, spontaneity and phasicity with Doppler, compression and augmentationmaneuvers. Great saphenous vein proximal at the junction was evaluated with compressionmaneuvers. INDICATIONS: Localized edema. FINDINGS: Performing Supervisor [place]: Farzana Owens RVT. Bilateral: Venous Doppler signals [...] above. Electronically Signed By: Cesar Cabello MD [facility] [phone] 08/27/2024 10:10:26 AM CDT us Olga Keith [...] [facility] Department [place] [address] * (ABNORMAL) Differential, auto (08/25/2024 12:34 AM CDT) Pathologist [facility] Neutrophil abs 5.2 1.5 - 6.5 K/cumm [...] [facility] Department [place] [address] * (ABNORMAL) CBC with auto differential (08/25/2024 [...] BLOOD ORDERABLES Final Result Performing Organization Address City/[facility]/ZIP Co de Phone Number [facility] [place] [address] * Phosphorus (08/25/2024 12:34 AM CDT) Phosphorus, pl 3.7 2.3 - 4.5 mg/dL Blood 08/25/2024 12:3 4 AM CDT 08/25/2024 12:55 AM CDT Karlos Hargrove MD LAB BLOOD ORDERABLES Final Result Performing Organization Address City/[facility] Co de Phone Number [facility] [place] [address] * Magnesium (08/25/2024 12:34 AM CDT) Magnesium 1.9 1.4 - 2.5 mg/dL Blood 08/25/2024 12:3 4 AM CDT 08/25/2024 12:55 AM CDT us Karlos Hargrove MD LAB BLOOD ORDERABLES Final Result [facility] [place] [address] * (ABNORMAL) Comprehensive metabolic panel (08/25/2024 12:34 AM CDT) Sodium 147(H) 135 - 145 mmol/L Potassium, pl 3.2(L) 3.3 - 4.9 mmol/L [facility] Chloride 109 97 - 110 mmol/L [facility] CO2 26 22 - 32 mmol/L [facility] Anion gap 12 2 - 15 mmol/L [facility] BUN 47(H) 6 - 25 mg/dL [facility] Creatinine 2.74(H) 0.80 - 1.30 mg/dL [facility] Glucose 154 70 - 199 mg/dL [facility] [...] [facility] Department [place] [address] * Sodium, urine, random (08/24/2024 5:16 PM CDT) Sodium, ur 44 mmol/L Comment: Interpretive Data No reference range established. Current interpretive data was last revised 2018. Urine 08/24/2024 5:16 PM CDT 08/24/2024 5:31 PM CDT us Olga Keith MD LAB URINE ORDERABLES Final Resul t MT [facility] One [facility] Department [place] [address] * CT Abdomen Pelvis WO Contrast (08/24/2024 [...] [facility] Neutrophil pct 73.7 % [facility] Comment: Interpretive Data Percent cell count reference ranges are not reported, since discordance with absolute values may lead to misinterpretation of CBC data. Current Interpretive Data was last revised on 2017. Imm gran pct 0.6 % [facility] Comment: Interpretive Data Percent cell count reference ranges are not reported, since discordance with absolute values may lead to misinterpretation of CBC data. Current Interpretive Data was last revised on 2017. Lymphocyte pct 10.0 % [facility] Comment: Interpretive Data Percent cell count reference ranges are not reported, since discordance with absolute values may lead to misinterpretation of CBC data. Current Interpretive Data was last revised on 2017. Monocyte pct 8.3 % [facility] Comment: Interpretive Data Percent cell count reference ranges are not reported, since discordance with absolute values may lead to misinterpretation of CBC data. Current Interpretive Data was last revised on 2017. Eosinophil pct 7.1 % [facility] [...] [facility] One [facility] Department [place] [address] * (ABNORMAL) CBC with auto differential (08/24/2024 [...] ORDERABLES Final Result Performing Organization Address [facility] Co de Phone Number [facility] [place] [address] * (ABNORMAL) eGFR (08/24/2024 1:12 AM CDT) [...] BLOOD ORDERABLES Final Result Performing Organization Address City/[facility]/ZIP Co de Phone Number [facility] Department [place] [address] * aPTT (08/24/2024 1:12 AM CDT) aPTT [...] ORDERABLES Final Result Performing Organization Address [facility] de Phone Number [facility] [place] [employer] [place] [address] * Protime-INR (08/24/2024 1:12 AM CDT) PT [...] ORDERABLES Final Result Performing Organization Address [facility] de Phone Number [facility] [place] [address] * Type and screen (08/24/2024 1:12 AM CDT) Yehuda, indirect Negative Comment:Patient has previous antibody history ABO Rh A Positive [facility] Blood 08/24/2024 1:12 AM CDT 08/24/2024 1:36 AM CDT Narrative [facility] - 08/24/2024 2:36 AM CDT Has the patient had Daratumumab or Isatuximab in the past 6 months?->Unknown us Karlos Hargrove MD LAB BLOOD BANK TEST ORDERA BLES Final Result [facility] [employer] [place] [address] * (ABNORMAL) Uric acid (08/24/2024 1:12 AM CDT) Uric acid 9.5(H) 3.0 - 8.0 mg/dL Blood 08/24/2024 1:12 AM CDT 08/24/2024 1:35 AM CDT Narrative [facility] 08/24/2024 2:47 AM CDT Friday and only. Morning draw. . Karlos Hargrove MD LAB BLOOD ORDERABLES Final Result Performing Organization Address City/[facility]/[place] [address] * Phosphorus (08/24/2024 1:12 AM CDT) Phosphorus, pl 4.5 2.3 - 4.5 mg/dL Blood 08/24/2024 1:12 AM CDT 08/24/2024 1:35 AM CDT Karlos Hargrove MD LAB BLOOD [place] [address] * Magnesium (08/24/2024 1:12 AM CDT) Magnesium 2.0 1.4 - 2.5 mg/dL Blood 08/24/2024 1:12 AM CDT 08/24/2024 1:35 AM CDT Karlos Hargrove MD LAB BLOOD ORDERABLES Final Result Performing Organization Address City/[facility] Co de Phone Number [facility] Department [place] [address] * Lactate dehydrogenase (LD) (08/24/2024 1:12 AM CDT) [facility] Lactate dehydrogenase (LDH) 226 100 - 250 Units/L Blood 08/24/2024 1:12 AM CDT 08/24/2024 1:35 AM CDT Narrative [facility] - 08/24/2024 2:47 AM CDT Friday and only. Morning draw. Karlos Hargrove MD LAB BLOOD ORDERABLES Final Result Performing Organization Address [facility] de Phone Number [facility] Department [place] [address] * (ABNORMAL) Comprehensive metabolic panel (08/24/2024 1:12 AM CDT) [facility] Sodium 148(H) 135 - 145 mmol/L [...] Albumin 3.6 3.5 - 5.0 g/dL [facility] Alk phos 62 40 - 130 Units/L [facility] ALT 16 7 - 55 Units/L [facility] AST 11 10 - 50 Units/L [facility] Blood 08/24/2024 1:12 AM CDT 08/24/2024 1:35 AM CDT Karlos Hargrove MD LAB BLOOD ORDERABLES Final Result [facility] One [facility] Department [place] [address] * US Kidney Complete (08/23/2024 8:12 PM [...] - 1.030 [facility] pH, urine 5.5 [facility] Comment: Interpretive Data U rine pH is affected by diet, medications, systemic acid-base disturbances, and renal tubular function. pH may affect urinary stone formation. For example, urine pH below 6.0 may help reduce the tendency for calcium phosphate stones and pH greater than 6.0 may reduce the tendency for uric acid stone formation. Source: [employer] Current Interpretive Data was last revised on 2017 Protein, ur ql Negative Negative [facility] Glucose, ur ql Negative Negative [facility] Ketones, ur Negative Negative [facility] Bilirubin, ur Negative Negative [facility] Blood, ur 2+(A) Negative [facility] Urobilinogen, ur <2.0 <2.0 mg/dL [facility] Nitrite, ur Negative Negative [facility] Leukocyte esterase, ur Trace(A) Negative [facility] UA reflex comment Reflex to microscopic UA will be performed. [facility] Urine 08/23/2024 7:01 PM CDT 08/23/2024 7:15 PM CDT Kinga Jones NP LAB URINE ORDERABLES [place] l Result Performing Organization Address [facility] de Phone Number [facility] [place] [address] * Protein / creatinine ratio, urine, random [...] [place] l Result Performing Organization Address [facility] de Phone Number [facility] [place] [address] * (ABNORMAL) Urinalysis, microscopic only (08/23/2024 7:01 PM CDT) WBC, ur 0-5 0 - 5 /HPF RBC, ur 6-10(A) 0 - 2 /HPF [facility] Urine 08/23/2024 7:01 PM CDT 08/23/2024 7:15 PM CDT Kinga Jones NP LAB URINE ORDERABLES [place] l Result Performing Organization Address [facility] Co de Phone Number [facility] Department [place] [address] * Urine culture Urine, clean voided (08/23/2024 7:01 PM CDT) [facility] Report Final Report: Less than 100,000 colonies/mL [...] in a sterile container. Testing performed by [facility] ([phone]) Kinga Jones NP LAB MICROBIOLOGY - GENERA L ORDERABLES Final Result Performing Organization Address [facility] Co de Phone Number [facility] Department [place] [address] * Immunotyping, serum with interpretation (08/23/2024 6:04 PM CDT) [facility] Immunosubtraction Please see comment Comment: NO PARAPROTEIN DETECTED Reviewed and signed by Fernando Nunez MD, PhD 08/24/2024 Blood 08/23/2024 6:04 PM CDT 08/23/2024 6:13 PM CDT Hermelindo Butler MD LAB BLOOD ORDER ELANA Final Result Performing Organization Address [facility] Co de Phone Number [facility] [place] [address] * (ABNORMAL) eGFR (08/23/2024 6:04 PM CDT) [facility] eGFR 19(L) >=60 mL/min/1. 73 m2 [...] [facility] One [facility] Department [place] [address] * (ABNORMAL) Differential, auto (08/23/2024 6:04 PM CDT) [facility] Neutrophil abs 6.5 1.5 - 6.5 K/cumm [...] 2017. Imm gran pct 0.5 % [facility] Comment: Interpretive Data Percent cell count reference ranges are not reported, since discordance with absolute values may lead to misinterpretation of CBC data. Current Interpretive Data was last revised on 2017. Lymphocyte pct 8.3 % [facility] Comment: Interpretive Data Percent cell count reference ranges are not reported, since discordance with absolute values may lead to misinterpretation of CBC data. Current Interpretive Data was last revised on 2017. Monocyte pct 7.3 % [facility] Comment: Interpretive Data Percent cell count reference ranges are not reported, since discordance with absolute values may lead to misinterpretation of CBC data. Current Interpretive Data was last revised on 2017. Eosinophil pct 6.5 % [facility] Comment: Interpretive Data Percent cell count reference ranges are not reported, since discordance with absolute values may lead to misinterpretation of CBC data. Current Interpretive Data was last revised on 2017. Basophil pct 0.4 % [facility] Comment: Interpretive Data Percent cell count reference ranges are not reported, since discordance with absolute values may lead to misinterpretation of CBC data. Current Interpretive Data was last revised on 2017. Blood 08/23/2024 6:04 PM CDT 08/23/2024 6:12 PM CDT Hermelindo Butler MD LAB BLOOD ORDER ELANA Final Result [facility] One [facility] Department [place] [address] * (ABNORMAL) Immunoglobulin free light chains (08/23/2024 6:04 PM CDT) [place]/Lambda ratio [facility] <0.40 0.26 - 1.65 Comment: Interpretive Data The Binding Site FreeLite assay procedure was used. Results from different manufacturers or methods may not be comparable. Serial testing should be performed using the same methods and instrumentation. Current Interpretive Data was last revised on 2023. [place] free light chain [facility] <0.06(L) 0.33 - [...] [facility] 0.15(L) 0.57 - 2.63 mg/dL [facility] Department [place] [address] * (ABNORMAL) CBC with auto differential (08/23/2024 [...] MD LAB BLOOD ORDER ELANA Final Result [facility] Department [place] [address] * (ABNORMAL) Uric acid (08/23/2024 6:04 PM CDT) [facility] Uric acid 9.5(H) 3.0 - 8.0 mg/dL Blood 08/23/2024 6:04 PM CDT 08/23/2024 6:13 PM CDT Hermelindo Butler MD LAB BLOOD ORDER ELANA Final Result Performing Organization Address City/[facility] Co de Phone Number [facility] [place] [address] * (ABNORMAL) Protein electrophoresis with reflex, serum with interpretation (08/23/2024 6:04 PM CDT) [facility] Protein, sr 5.9(L) 6.2 - 8.2 [...] ELANA Final Result Performing Organization Address City/State/[facility] Co de Phone Number [facility] Department [place] [address] * (ABNORMAL) Phosphorus (08/23/2024 6:04 PM CDT) [facility] Phosphorus, pl 4.7(H) 2.3 - 4.5 mg/dL Blood 08/23/2024 6:04 PM CDT 08/23/2024 6:13 PM CDT Hermelindo Butler MD LAB BLOOD ORDER ELANA Final Result Performing Organization Address City/[facility] Co de Phone Number [facility] Department [place] [address] * Magnesium (08/23/2024 6:04 PM CDT) [facility] Magnesium 1.9 1.4 - 2.5 mg/dL Blood 08/23/2024 6:04 PM CDT 08/23/2024 6:13 PM CDT Hermelindo Butler MD LAB BLOOD ORDER ELANA Final Result Performing Organization Address City/[facility] Co de Phone Number [facility] [place] [address] * Lactate dehydrogenase (LD) (08/23/2024 6:04 PM CDT) Lactate dehydrogenase (LDH) 198 100 - 250 Units/L Blood 08/23/2024 6:04 PM CDT 08/23/2024 6:13 PM CDT Hermelindo Butler MD LAB BLOOD ORDER ELANA Final Result Performing Organization Address [facility] Co de Phone Number [facility] [place] [address] * (ABNORMAL) IgA (08/23/2024 6:04 PM CDT) Pathologist [facility] Immunoglobulin A <50(L) 70 - 400 mg/dL Blood 08/23/2024 6:04 PM CDT 08/23/2024 6:13 PM CDT Hermelindo Butler MD LAB BLOOD ORDER ELANA Final Result Performing Organization Address [facility] de Phone Number [facility] [place] [address] * (ABNORMAL) IgM (08/23/2024 6:04 PM CDT) Pathologist [facility] Immunoglobulin M <25(L) 40 - 230 mg/dL Blood 08/23/2024 6:04 PM CDT 08/23/2024 6:13 PM CDT Hermelindo Butler MD LAB BLOOD ORDER ELANA Final Result Performing Organization Address City/[facility] de Phone Number [facility] [place] [address] * (ABNORMAL) IgG (08/23/2024 6:04 PM CDT) Pathologist [facility] Immunoglobulin G <300(L) 700 - 1,600 mg/dL Blood 08/23/2024 6:04 PM CDT 08/23/2024 6:13 PM CDT us Hermelindo Butler MD LAB BLOOD ORDER ELANA Final Result [facility] One [facility] Department [place] [address] * (ABNORMAL) Comprehensive metabolic panel (08/23/2024 6:04 PM CDT) Sodium 146(H) 135 - 145 mmol/L Potassium, pl 3.8 3.3 - 4.9 mmol/L [facility] Chloride 107 97 - 110 mmol/L [facility] CO2 26 22 - 32 mmol/L [facility] Anion gap 13 2 - 15 mmol/L [facility] BUN 58(H) 6 - 25 mg/dL [facility] Creatinine 3.37(H) 0.80 - 1.30 mg/dL [facility] Glucose 89 70 - 199 mg/dL [facility] [...] Calcium 8.9 8.5 - 10.3 mg/dL [facility] Bilirubin, total 0.4 0.1 - 1.2 mg/dL [facility] Protein, pl 6.2(L) 6.5 - 8.5 g/dL [facility] Albumin 4.0 3.5 - 5.0 g/dL [facility] Alk phos 68 40 - 130 Units/L [facility] ALT 16 7 - 55 Units/L [facility] AST 12 10 - 50 Units/L [facility] Blood 08/23/2024 6:04 PM CDT 08/23/2024 6:13 PM CDT us Hermelindo Butler MD LAB BLOOD ORDER ELANA Final Result [facility] [facility] Department [place] [address] * SCAN - LABS (08/20/2024) us Provider Scanning Final Result * SCAN - LABS (08/10/2024) us Provider Scanning Final Result * US Kidney Complete (08/06/2024 2:42 PM MARKETING STRATEGY MANAGER) Anatomical Region Laterality Modality Kidney N/A Ultrasound 08/06/2024 3:27 PM MARKETING STRATEGY MANAGER Impressions 08/06/2024 3:27 PM MARKETING STRATEGY MANAGER 1. Mild nephromegaly with mild to moderate hydronephrosis bilaterally. 2. Incomplete bladder emptying with post void bladder residual of 397 mL. Electronically signed by: Dylan Tinajero M.D. Narrative 08/06/2024 3:27 PM MARKETING STRATEGY MANAGER EXAMINATION: COMPLETE RENAL SONOGRAM HISTORY: Rising [...] by: Dylan Tinajero M.D. Hermelindo Butler MD [facility] PROCEDUR ES Final Result * (ABNORMAL) Urinalysis reflex to microscopic (08/06/2024 9:19 AM MARKETING STRATEGY MANAGER) Color, ur Straw Yellow Clarity, ur Clear Clear [facility] Specific gravity, ur 1.013 1.003 - 1.030 [facility] [...] tendency for uric acid stone formation. Source: [facility] [employer] Current Interpretive Data was last revised on 2017 Protein, ur ql Negative Negative [facility] Glucose, ur ql Negative Negative [facility] Ketones, ur Negative Negative [facility] Bilirubin, ur Negative Negative [facility] Blood, ur 3+(A) Negative [facility] Urobilinogen, ur <2.0 <2.0 mg/dL [facility] Nitrite, ur Negative Negative [facility] Leukocyte esterase, ur Trace(A) [facility] UA reflex comment Reflex to microscopic UA will be performed. [facility] Urine 08/06/2024 9:19 AM MARKETING STRATEGY MANAGER 08/06/2024 9:19 AM MARKETING STRATEGY MANAGER Lyndsey Fagan NP LAB URINE ORDERABLES [place] nicole Result [facility] Department [place] [address] * Protein / creatinine ratio, urine, random (08/06/2024 9:19 AM MARKETING STRATEGY MANAGER) Pathologist [facility] Protein, ur, quant 7.9 mg/dL Comment: Interpretive Data No reference range established. Current interpretive data was last revised 2018. Creatinine Ur 77.4 mg/dL [facility] Comment: Interpretive Data No reference range established. Current interpretive data was last revised 2018. Protein/creatinin e ratio 102.1 0.0 - 180.0 mg/g CR [facility] Urine 08/06/2024 9:19 AM MARKETING STRATEGY MANAGER 08/06/2024 9:41 AM MARKETING STRATEGY MANAGER Lyndsey Fagan LAB URINE ORDERABLES [place] l Result Performing Organization Address [facility] Co de Phone Number [facility] Department [place] [address] * (ABNORMAL) Urinalysis, microscopic only (08/06/2024 9:19 AM MARKETING STRATEGY MANAGER) [facility] WBC, ur 6-10(A) 0 - 5 /HPF RBC, ur 21-50(A) 0 - 2 /HPF [facility] Bacteria, ur Trace(A) [facility] Mucous, ur Present(A) [facility] Urine 08/06/2024 9:19 AM MARKETING STRATEGY MANAGER 08/06/2024 9:19 AM MARKETING STRATEGY MANAGER Lyndsey Fagan HEMSTITCHING MACHINE OPERATOR LAB URINE ORDERABLES [place] l Result Performing Organization Address [facility] Co de Phone Number [facility] [place] [address] * (ABNORMAL) eGFR (08/06/2024 7:43 AM MARKETING STRATEGY MANAGER) [facility] eGFR 31(L) >=60 mL/min/1. 73 m2 Comment: [...] last reviewed 2021. Blood 08/06/2024 7:43 AM MARKETING STRATEGY MANAGER 08/06/2024 7:52 AM MARKETING STRATEGY MANAGER Hermelindo Butler MD LAB BLOOD ORDER ELANA Final Result [facility] Department [place] [address] * (ABNORMAL) Differential, auto (08/06/2024 7:43 AM MARKETING STRATEGY MANAGER) Neutrophil abs 5.4 1.5 - 6.5 K/cumm Comment:Testing performed by : [facility], [address] [place] [phone] Lymphocyte abs 0.8 0.8 - 3.3 K/cumm [facility] Comment:Testing performed by : [facility], [address] [place] [phone] Monocyte abs 0.5 0.2 - 0.8 K/cumm [facility] Comment:Testing performed by : [facility], [address] [place] [phone] Eosinophil abs 0.7(H) 0.0 - 0.5 K/cumm [facility] Comment:Testing performed by : [facility], [address] [place] [phone] Basophil abs 0.0 0.0 - 0.1 K/cumm [facility] Comment:Testing performed by : [facility], [address] [place], [place] [id number] Neutrophil pct 72.4 % [facility] Comment: Interpretive Data Percent cell count reference ranges are not reported, since discordance with absolute values may lead to misinterpretation of CBC data. Current Interpretive Data was last revised on 2017. Testing performed by: [facility], [address] [place], [place] [id number] Lymphocyte pct 10.4 % [facility] Comment: Interpretive Data Percent cell count reference ranges are not reported, since discordance with absolute values may lead to misinterpretation of CBC data. Current Interpretive Data was last revised on 2017. Testing performed by: [facility], [address] [place] [phone] Monocyte pct 7.3 % [facility] Comment: Interpretive Data Percent cell count reference ranges are not reported, since discordance with absolute values may lead to misinterpretation of CBC data. Current Interpretive Data was last revised on 2017. Testing performed by: [facility], [address] [place], [place] [id number] Eosinophil pct 9.4 % [facility] Comment: Interpretive Data Percent cell count reference ranges are not reported, since discordance with absolute values may lead to misinterpretation of CBC data. Current Interpretive Data was last revised on 2017. Testing performed by: [facility], [address] [place] [phone] Basophil pct 0.5 % CERNER BJ Comment: Interpretive Data Percent cell count reference ranges are not reported, since discordance with absolute values may lead to misinterpretation of CBC data. Current Interpretive Data was last revised on 2017. Testing performed by: [facility], [address] [place] [address] Blood 08/06/2024 7:43 AM MARKETING STRATEGY MANAGER 08/06/2024 7:51 AM MARKETING STRATEGY MANAGER us Hermelindo Butler MD LAB BLOOD ORDER ELANA Final Result MT SU[facility] Department [place] [address] * (ABNORMAL) CBC with auto differential (08/06/2024 7:43 AM MARKETING STRATEGY MANAGER) WBC 7.5 3.8 - 9.9 K/cumm Comment:Testing performed by : [facility], [address] [place] [address] Hgb 13.7 13.0 - 17.5 g/dL CERNER BJ Comment:Testing performed by : [facility], [address] [place] [address] Hct 40.6 38.9 - 50.3 % CERNER BJ Comment:Testing performed by : [facility], [address] [place] [address] Plt 169 150 - 400 K/cumm CERFRANK BJ Comment:Testing performed by : [facility], [address] [place] [address] MPV 7.5 6.8 - 10.4 fL CERNER BJ Comment:Testing performed by : [facility], [address] [place] [address] RBC 4.37 4.30 - 5.80 M/cumm CERNER BJ Comment:Testing performed by : [facility], [address] [place] [address] MCV 92.7 81.3 - 96.4 fL CERNER BJ Comment:Testing performed by : [facility], [address] [place] [address] MCH 31.3 27.1 - 33.3 pg CERNER BJ Comment:Testing performed by : [facility], [address] [place] [address] MCHC 33.8 32.3 - 35.7 g/dL CERNER BJ Comment:Testing performed by : [facility], [address] [place] [address] RDW CV 16.5(H) 11.1 - 14.9 % [facility] Comment:Testing performed by : [facility], [address] [place] [phone] NRBC abs 0.00 0.00 - 0.01 K/cumm [facility] Comment:Testing performed by : [facility], [address] [place] [phone] Blood 08/06/2024 7:4 3 AM MARKETING STRATEGY MANAGER 08/06/2024 7:51 AM MARKETING STRATEGY MANAGER Hermelindo Butler MD LAB BLOOD ORDER ELANA Final Result Performing Organization Address [facility] de Phone Number [facility] Department [place] [address] * (ABNORMAL) PSA diagnostic (08/06/2024 7:43 AM MARKETING STRATEGY MANAGER) [facility] PSA-Total 6.28(H) <=6.20 ng/mL Comment: Interpretive Data [...] last revised 21. Blood 08/06/2024 7:43 AM MARKETING STRATEGY MANAGER 08/06/2024 7:52 AM MARKETING STRATEGY MANAGER Hermelindo Butler MD LAB BLOOD ORDER ELANA Final Result Performing Organization Address [facility] de Phone Number [facility] Department [place] [address] * Lactate dehydrogenase (LD) (08/06/2024 7:43 AM MARKETING STRATEGY MANAGER) Lactate dehydrogenase (LDH) 161 100 - 250 Units/L Blood 08/06/2024 7:43 AM MARKETING STRATEGY MANAGER 08/06/2024 7:52 AM MARKETING STRATEGY MANAGER us Hermelindo Butler MD LAB BLOOD ORDER ELANA Final Result [facility] Department [place] [address] * (ABNORMAL) Lipid panel (08/06/2024 7:43 AM MARKETING STRATEGY MANAGER) Cholesterol 128 30 - 199 mg/dL [...] revised on 2018. Triglycerides 149 <=149 mg/dL [facility] [...] on 2018. HDL 38(L) >=40 mg/dL [facility] Comment: Interpretive Data Ages < or = [...] 2018. LDL, calculated 64 <=129 mg/dL [facility] Comment: Interpretive Data Ages < or = [...] 2004;110:227 3. Luis Argueta al. NATALIIA Cardiol. 2019October 07;5(5):540-548. doi: [email or web address] [...] revised on 2018. Chol/HDL ratio 3 [facility] Blood 08/06/2024 7:43 AM MARKETING STRATEGY MANAGER 08/06/2024 7:52 AM MARKETING STRATEGY MANAGER us Hermelindo Butler MD LAB BLOOD ORDER ELANA Final Result [facility] Department [place] [address] * (ABNORMAL) Comprehensive metabolic panel (08/06/2024 7:43 AM MARKETING STRATEGY MANAGER) Sodium 145 135 - 145 mmol/L Potassium, pl 4.2 3.3 - 4.9 mmol/L [facility] Chloride 108 97 - 110 mmol/L [facility] CO2 30 22 - 32 mmol/L [facility] Anion gap 7 2 - 15 mmol/L [facility] BUN 51(H) 6 - 25 mg/dL [facility] Creatinine 2.21(H) 0.80 - 1.30 mg/dL [facility] Glucose 113 70 - 199 mg/dL [facility] [...] Calcium 9.2 8.5 - 10.3 mg/dL [facility] Bilirubin, total 0.5 0.1 - 1.2 mg/dL [facility] Protein, pl 6.2(L) 6.5 - 8.5 g/dL [facility] Albumin 4.1 3.5 - 5.0 g/dL [facility] Alk phos 61 40 - 130 Units/L CERNER BJ ALT 15 7 - 55 Units/L [facility] AST 16 10 - 50 Units/L [facility] Blood 08/06/2024 7:43 AM MARKETING STRATEGY MANAGER 08/06/2024 7:52 AM MARKETING STRATEGY MANAGER Hermelindo Butler MD LAB BLOOD ORDER ELANA Final Result Performing Organization Address [facility] Co de Phone Number [facility] [place] [place] [address] * aPTT (08/03/2024 9:21 AM MARKETING STRATEGY MANAGER) aPTT 31 28 - 38 sec Comment: Interpretive Data Heparin therapeutic range: 66.0 - 100.0 seconds. Range based on correlation with therapeutic heparin activity range of 0.3 - 0.7 Units/mL. Current interpretive data was last revised on 2023. Blood 08/03/2024 9:21 AM MARKETING STRATEGY MANAGER 08/03/2024 9:47 AM MARKETING STRATEGY MANAGER Hermelindo Butler MD LAB BLOOD ORDER ELANA Final Result Performing Organization Address [facility] de Phone Number [facility] [place] [place] [address] * Protime-INR (08/03/2024 9:21 AM MARKETING STRATEGY MANAGER) PT 11.5 9.7 - 13.0 sec INR 1.06 0.90 - 1.20 [facility] Comment: Interpretive data Oral anticoagulant therapeutic ranges: Venous thromboembolism prophylaxis or treatment: 2.0-3.0 CARDIOLOGY Standard range: 2.0-3.0 High-intensity range: 2.5-3.5 Refer to indication-specific guidelines for appropriate target ranges for prosthetic heart valve replacement. Current interpretive data was last revised on 2019. Blood 08/03/2024 9:21 AM MARKETING STRATEGY MANAGER 08/03/2024 9:47 AM MARKETING STRATEGY MANAGER Hermelindo Butler MD LAB BLOOD ORDER ELANA Final Result Performing Organization Address [facility] de Phone Number [facility] [employer] [address] * Immunotyping, serum with interpretation (08/03/2024 7:40 AM MARKETING STRATEGY MANAGER) Immunosubtraction Please see comment Comment: NO PARAPROTEIN DETECTED Reviewed and signed by Hermelindo Mcnulty MD 08/04/2024 Blood 08/03/2024 7:40 AM MARKETING STRATEGY MANAGER 08/03/2024 8:24 AM MARKETING STRATEGY MANAGER Hermelindo Butler MD LAB BLOOD ORDER ELANA Final Result [facility] Department [place] [address] * (ABNORMAL) eGFR (08/03/2024 7:40 AM MARKETING STRATEGY MANAGER) eGFR 37(L) >=60 mL/min/1. 73 m2 [...] last reviewed 2021. Blood 08/03/2024 7:40 AM MARKETING STRATEGY MANAGER 08/03/2024 7:49 AM MARKETING STRATEGY MANAGER Hermelindo Butler MD LAB BLOOD ORDER ELANA Final Result [facility] Department [place] [address] * (ABNORMAL) Differential, auto (08/03/2024 7:40 AM MARKETING STRATEGY MANAGER) Neutrophil abs 5.6 1.5 - 6.5 K/cumm Comment:Testing performed by : [facility], [address] [place] [phone] Lymphocyte abs 0.9 0.8 - 3.3 K/cumm CERNER [facility]H Comment:Testing performed by : [facility], [address] [place] [phone] Monocyte abs 0.6 0.2 - 0.8 K/cumm [facility] Comment:Testing performed by : [facility], [address] [place] [phone] Eosinophil abs 0.8(H) 0.0 - 0.5 K/cumm [facility] Comment:Testing performed by : [facility], [address] [place] [phone] Basophil abs 0.0 0.0 - 0.1 K/cumm C[facility]ER [facility] Comment:Testing performed by : [facility], [address] [place] [phone] Neutrophil pct 70.4 % [facility] Comment: Interpretive Data Percent cell count reference ranges are not reported, since discordance with absolute values may lead to misinterpretation of CBC data. Current Interpretive Data was last revised on 2017. Testing performed by: [facility], [address] [place] [phone] Lymphocyte pct 11.2 % [facility] Comment: Interpretive Data Percent cell count reference ranges are not reported, since discordance with absolute values may lead to misinterpretation of CBC data. Current Interpretive Data was last revised on 2017. Testing performed by: [facility], [address] [place], [place] [phone] Monocyte pct 7.7 % [facility] Comment: Interpretive Data Percent cell count reference ranges are not reported, since discordance with absolute values may lead to misinterpretation of CBC data. Current Interpretive Data was last revised on 2017. Testing performed by: [facility], [facility] [place] [address] Eosinophil pct 10.1 % MT SUAREZ Comment: Interpretive Data Percent cell count reference ranges are not reported, since discordance with absolute values may lead to misinterpretation of CBC data. Current Interpretive Data was last revised on 2017. Testing performed by: [facility], [address] [place] [phone] Basophil pct 0.6 % MT SU[facility] Comment: Interpretive Data Percent cell count reference ranges are not reported, since discordance with absolute values may lead to misinterpretation of CBC data. Current Interpretive Data was last revised on 2017. Testing performed by: [facility], [address] [place] [phone] Blood 08/03/2024 7:40 AM MARKETING STRATEGY MANAGER 08/03/2024 7:47 AM MARKETING STRATEGY MANAGER Hermelindo Butler MD LAB BLOOD ORDER ELANA Final Result [facility] One [facility] Department [place] [address] * (ABNORMAL) Immunoglobulin free light chains (08/03/2024 7:40 AM MARKETING STRATEGY MANAGER) [place]/Lambda ratio BJ See Comment 0.26 - 1.65 Comment: Unable to calculate exact result. Interpretive Data The Binding Site FreeLite assay procedure was used. Results from different manufacturers or methods may not be comparable. Serial testing should be performed using the same methods and instrumentation. Current Interpretive Data was last revised on 2023. [place] free light chain [facility] <0.06(L) 0.33 - [...] revised on 2023. Blood 08/03/2024 7:40 AM MARKETING STRATEGY MANAGER 08/03/2024 8:24 AM MARKETING STRATEGY MANAGER Hermelindo Butler MD LAB BLOOD ORDER ELANA Final Result [facility] Department [place] [address] * (ABNORMAL) CBC with auto differential (08/03/2024 7:40 AM MARKETING STRATEGY MANAGER) WBC 7.9 3.8 - 9.9 K/cumm Comment:Testing performed by : [facility], [address] [place] [address] Hgb 13.7 13.0 - 17.5 g/dL CERNER BJ Comment:Testing performed by : [facility], [address] [place] [address] Hct 41.5 38.9 - 50.3 % CERNER BJ Comment:Testing performed by : [facility], [address] [place] [address] Plt 163 150 - 400 K/cumm CERFRANK BJ Comment:Testing performed by : [facility], [address] [place] [address] MPV 7.8 6.8 - 10.4 fL CERNER BJ Comment:Testing performed by : [facility], [address] [place] [address] RBC 4.50 4.30 - 5.80 M/cumm CERFRANK BJ Comment:Testing performed by : [facility], [address] [place] [address] MCV 92.1 81.3 - 96.4 fL CERNER BJ Comment:Testing performed by : [facility], [address] [place], [place] [phone] MCH 30.4 27.1 - 33.3 pg MT SUAREZ Comment:Testing performed by : [facility], [address] [place], [place] [phone] MCHC 33.0 32.3 - 35.7 g/dL MT SU[facility]Z Comment:Testing performed by : [facility], [address] [place], [place] [phone] RDW CV 16.6(H) 11.1 - 14.9 % MT SU[facility]Z Comment:Testing performed by : [facility], [address] [place], [place] [phone] NRBC abs 0.00 0.00 - 0.01 K/cumm MT SU[facility] Comment:Testing performed by : [facility], [address] [place], [place] [phone] Blood 08/03/2024 7:40 AM MARKETING STRATEGY MANAGER 08/03/2024 7:47 AM MARKETING STRATEGY MANAGER Hermelindo Butler MD LAB BLOOD ORDER ELANA Final Result [facility] One [facility] Department [place] [address] * (ABNORMAL) Protein electrophoresis with reflex, serum with interpretation (08/03/2024 7:40 AM MARKETING STRATEGY MANAGER) Protein, sr 5.7(L) 6.2 - 8.2 g/dL Albumin 3.8 3.2 - 5.0 g/dL [facility] Alpha-1 globulin 0.3 0.2 - 0.4 [...] Mcnulty MD 08/04/2024 Blood 08/03/2024 7:40 AM MARKETING STRATEGY MANAGER 08/03/2024 8:24 AM MARKETING STRATEGY MANAGER Hermelindo Butler MD LAB BLOOD ORDER ELANA Final Result Performing Organization Address City/[facility] Co de Phone Number [facility] [employer] [place] [address] * Magnesium (08/03/2024 7:40 AM MARKETING STRATEGY MANAGER) [facility] Magnesium 2.2 1.4 - 2.5 mg/dL Blood 08/03/2024 7:40 AM MARKETING STRATEGY MANAGER 08/03/2024 9:36 AM MARKETING STRATEGY MANAGER Hermelindo Butler MD LAB BLOOD ORDER ELANA Final Result Performing Organization Address [facility] de Phone Number [facility] Department [place] [address] * Lactate dehydrogenase (LD) (08/03/2024 7:40 AM MARKETING STRATEGY MANAGER) [facility] Lactate dehydrogenase (LDH) 172 100 - 250 Units/L Blood 08/03/2024 7:40 AM MARKETING STRATEGY MANAGER 08/03/2024 7:49 AM MARKETING STRATEGY MANAGER Hermelindo Butler MD LAB BLOOD ORDER ELANA Final Result Performing Organization Address [facility] de Phone Number [facility] [place] [address] * (ABNORMAL) Hemoglobin A1c (08/03/2024 7:40 AM MARKETING STRATEGY MANAGER) [facility] Hgb A1C 5.8(H) 4.0 - 5.6 [...] a fasting glucose. Blood 08/03/2024 7:40 AM MARKETING STRATEGY MANAGER 08/03/2024 7:49 AM MARKETING STRATEGY MANAGER Lyndsey Fagan NP LAB BLOOD ORDERABLES Angeles l Result Performing Organization Address City/[facility] Co de Phone Number [facility] Department [place] [address] * Gamma GT (08/03/2024 7:40 AM MARKETING STRATEGY MANAGER) [facility] GGT 23 10 - 50 Units/L Blood 08/03/2024 7:40 AM MARKETING STRATEGY MANAGER 08/03/2024 9:36 AM MARKETING STRATEGY MANAGER Hermelindo Butler MD LAB BLOOD ORDER ELANA Final Result Performing Organization Address [facility] de Phone Number [facility] Department [place] [address] * (ABNORMAL) IgA (08/03/2024 7:40 AM MARKETING STRATEGY MANAGER) [facility] Immunoglobulin A <50(L) 70 - 400 mg/dL Blood 08/03/2024 7:40 AM MARKETING STRATEGY MANAGER 08/03/2024 8:09 AM MARKETING STRATEGY MANAGER Hermelindo Butler MD LAB BLOOD ORDER ELANA Final Result Performing Organization Address [facility] Co de Phone Number [facility] [place] [address] * (ABNORMAL) IgM (08/03/2024 7:40 AM MARKETING STRATEGY MANAGER) [facility] Immunoglobulin M <25(L) 40 - 230 mg/dL Blood 08/03/2024 7:40 AM MARKETING STRATEGY MANAGER 08/03/2024 8:09 AM MARKETING STRATEGY MANAGER Hermelindo Butler MD LAB BLOOD ORDER ELANA Final Result Performing Organization Address City/[facility]/ZIP Co de Phone Number [facility] Department [place] [address] * (ABNORMAL) IgG (08/03/2024 7:40 AM MARKETING STRATEGY MANAGER) [facility] Immunoglobulin G <300(L) 700 - 1,600 mg/dL Blood 08/03/2024 7:40 AM MARKETING STRATEGY MANAGER 08/03/2024 8:09 AM MARKETING STRATEGY MANAGER Hermelindo Butler MD LAB BLOOD ORDER ELANA Final Result Performing Organization Address City/[facility] de Phone Number [facility] Department [place] [address] * (ABNORMAL) Comprehensive metabolic panel (08/03/2024 7:40 AM MARKETING STRATEGY MANAGER) [facility] Sodium 141 135 - 145 mmol/L [...] Calcium 9.2 8.5 - 10.3 mg/dL [facility] Bilirubin, total 0.7 0.1 - 1.2 mg/dL CERNER [facility]J Protein, pl 6.2(L) 6.5 - 8.5 g/dL C[facility]ER [facility] Albumin 3.9 3.5 - 5.0 g/dL CERNER [facility] Alk phos 63 40 - 130 Units/L [facility] ALT 15 7 - 55 Units/L [facility] AST 17 10 - 50 Units/L CERNER [facility]J Blood 08/03/2024 7:40 AM MARKETING STRATEGY MANAGER 08/03/2024 7:49 AM MARKETING STRATEGY MANAGER Hermelindo Butler MD LAB BLOOD ORDER ELANA Final Result [facility] One [facility] Department [place] [address] * (ABNORMAL) Urinalysis reflex to microscopic and culture Urine, clean voided (08/03/2024 7:30 AM MARKETING STRATEGY MANAGER) Color, ur Straw Yellow Clarity, ur Clear Clear [facility] Specific gravity, ur 1.012 1.003 - 1.030 [facility] pH, urine 5.5 [facility] Comment: Interpretive Data U rine pH is affected by diet, medications, systemic acid-base disturbances, and renal tubular function. pH may affect urinary stone formation. For example, urine pH below 6.0 may help reduce the tendency for calcium phosphate stones and pH greater than 6.0 may reduce the tendency for uric acid stone formation. Source: [facility] [employer] Current Interpretive Data was last revised on 2017 Protein, ur ql Negative Negative CERNER [facility] Glucose, ur ql Negative Negative [facility]ER [facility] Ketones, ur Negative Negative [facility] Bilirubin, ur Negative Negative [facility] Blood, ur 2+(A) Negative [facility] Urobilinogen, ur <2.0 <2.0 mg/dL [facility] Nitrite, ur Negative Negative [facility] Leukocyte esterase, ur Negative [facility] UA reflex comment Reflex to microscopic UA will be performed. [facility] Urine, clean voided 08/03/2024 7:30 AM MARKETING STRATEGY MANAGER 08/03/2024 7:30 AM MARKETING STRATEGY MANAGER Lyndsey Fagan HEMSTITCHING MACHINE OPERATOR LAB MICROBIOLOGY - GENERA L ORDERABLES Final Result Performing Organization Address City/[facility] Co de Phone Number [facility] [place] [address] * (ABNORMAL) Urinalysis, microscopic only (08/03/2024 7:30 AM MARKETING STRATEGY MANAGER) WBC, ur 6-10(A) 0 - 5 [...] HOSPITAL Urine, clean voided 08/03/2024 7:30 AM MARKETING STRATEGY MANAGER 08/03/2024 7:30 AM MARKETING STRATEGY MANAGER Lyndsey Fagan HEMSTITCHING MACHINE OPERATOR LAB URINE ORDERABLES Angeles l Result [facility] Department [place] [address] * Urine culture Urine, clean voided (08/03/2024 7:30 AM MARKETING STRATEGY MANAGER) Report Final Report: No growth Urine, clean voided 08/03/2024 7:30 AM MARKETING STRATEGY MANAGER 08/03/2024 9:59 AM MARKETING STRATEGY MANAGER Narrative [facility] - 08/04/2024 11:14 AM MARKETING STRATEGY MANAGER Testing performed by [facility] ([phone]) Hermelindo Butler MD LAB MICROBIOLOG Y - GENERAL ORDERABLES Final Result Performing Organization Address City/[facility] Co de Phone Number [facility] Department [place] [address] * Immunotyping, serum with interpretation (07/13/2024 7:40 AM MARKETING STRATEGY MANAGER) Immunosubtraction Please see comment Comment: NO PARAPROTEIN DETECTED Reviewed and signed by Rufino Huff MD, PhD 07/14/2024 Blood 07/13/2024 7:40 AM MARKETING STRATEGY MANAGER 07/13/2024 8:42 AM MARKETING STRATEGY MANAGER Hermelindo Butler MD LAB BLOOD ORDER ELANA Final Result Performing Organization Address City/[facility] Co de Phone Number [facility] Department [place] [address] * (ABNORMAL) eGFR (07/13/2024 7:40 AM MARKETING STRATEGY MANAGER) [facility] eGFR 57(L) >=60 mL/min/1. 73 m2 [...] last reviewed 2021. Blood 07/13/2024 7:40 AM MARKETING STRATEGY MANAGER 07/13/2024 7:47 AM MARKETING STRATEGY MANAGER Hermelindo Butler MD LAB BLOOD ORDER ELANA Final Result [facility] Department [place] [address] * Differential, auto (07/13/2024 7:40 AM MARKETING STRATEGY MANAGER) Neutrophil abs 5.4 1.5 - 6.5 K/cumm Comment:Testing performed by : [facility], [address] [place] [phone] Lymphocyte abs 0.9 0.8 - 3.3 K/cumm CERNER BJ Comment:Testing performed by : [facility], [address] [place] [phone] Monocyte abs 0.5 0.2 - 0.8 K/cumm CERNER BJ Comment:Testing performed by : [facility], [address] [place] [phone] Eosinophil abs 0.5 0.0 - 0.5 K/cumm CERNER BJ Comment:Testing performed by : [facility], [address] [place] [phone] Basophil abs 0.0 0.0 - 0.1 K/cumm CERNER BJ Comment:Testing performed by : [facility], [address] [place] [phone] Neutrophil pct 73.6 % CERNER BJ Comment: Interpretive Data Percent cell count reference ranges are not reported, since discordance with absolute values may lead to misinterpretation of CBC data. Current Interpretive Data was last revised on 2017. Testing performed by: [facility], [address] [place] [phone] Lymphocyte pct 12.0 % CERNER BJ Comment: Interpretive Data Percent cell count reference ranges are not reported, since discordance with absolute values may lead to misinterpretation of CBC data. Current Interpretive Data was last revised on 2017. Testing performed by: [facility], [address] [place] [phone] Monocyte pct 7.4 % [facility] Comment: Interpretive Data Percent cell count reference ranges are not reported, since discordance with absolute values may lead to misinterpretation of CBC data. Current Interpretive Data was last revised on 2017. Testing performed by: [facility], [address] [place] [phone] Eosinophil pct 6.5 % MT [facility] Comment: Interpretive Data Percent cell count reference ranges are not reported, since discordance with absolute values may lead to misinterpretation of CBC data. Current Interpretive Data was last revised on 2017. Testing performed by: [facility], [address] [place] [phone] Basophil pct 0.5 % MT [facility] Comment: Interpretive Data Percent cell count reference ranges are not reported, since discordance with absolute values may lead to misinterpretation of CBC data. Current Interpretive Data was last revised on 2017. Testing performed by: [facility], [address] [place] [phone] Blood 07/13/2024 7:40 AM MARKETING STRATEGY MANAGER 07/13/2024 7:46 AM MARKETING STRATEGY MANAGER Hermelindo Butler MD LAB BLOOD ORDER ELANA Final Result [facility] Department [place] [address] * (ABNORMAL) Immunoglobulin free light chains (07/13/2024 7:40 AM MARKETING STRATEGY MANAGER) [place]/Lambda ratio [facility] See Comment 0.26 - 1.65 Comment: Unable to calculate exact result. Interpretive Data The Binding Site FreeLite assay procedure was used. Results from different manufacturers or methods may not be comparable. Serial testing should be performed using the same methods and instrumentation. Current Interpretive Data was last revised on 2023. [place] free light chain [facility] <0.06(L) 0.33 - [...] revised on 2023. Blood 07/13/2024 7:40 AM MARKETING STRATEGY MANAGER 07/13/2024 8:42 AM MARKETING STRATEGY MANAGER Hermelindo Butler MD LAB BLOOD ORDER ELANA Final Result [facility] Department [place] [address] * (ABNORMAL) CBC with auto differential (07/13/2024 7:40 AM MARKETING STRATEGY MANAGER) WBC 7.4 3.8 - 9.9 K/cumm Comment:Testing performed by : [facility], [address] [place] [address] Hgb 14.4 13.0 - 17.5 g/dL MT [facility] Comment:Testing performed by : [facility], [address] [place] [address] Hct 44.1 38.9 - 50.3 % MT SU[facility]Z Comment:Testing performed by : [facility], [address] [place] [address] Plt 174 150 - 400 K/cumm TM SUAREZ Comment:Testing performed by : [facility], [address] [place] [address] MPV 7.5 6.8 - 10.4 fL MT [facility] Comment:Testing performed by : [facility], [address] [place], [place] [id number] RBC 4.75 4.30 - 5.80 M/cumm MT [facility] Comment:Testing performed by : [facility], [address] [place], [place] [id number] MCV 92.8 81.3 - 96.4 fL MT [facility] Comment:Testing performed by : [facility], [address] [place], [place] [id number] MCH 30.2 27.1 - 33.3 pg MT [facility] Comment:Testing performed by : [facility], [address] [place], [place] [id number] MCHC 32.6 32.3 - 35.7 g/dL MT [facility] Comment:Testing performed by : [facility], [address] [place], [place] [id number] RDW CV 16.2(H) 11.1 - 14.9 % MT SU[facility] Comment:Testing performed by : [facility], [address] [place], [place] [id number] NRBC abs 0.00 0.00 - 0.01 K/cumm [facility] Comment:Testing performed by : [facility], [address] [place], [place] [id number] Blood 07/13/2024 7:40 AM MARKETING STRATEGY MANAGER 07/13/2024 7:46 AM MARKETING STRATEGY MANAGER Hermelindo Butler MD LAB BLOOD ORDER ELANA Final Result [facility] Department of Laboratories [place], [place] [id number] * (ABNORMAL) Protein electrophoresis with reflex, serum with interpretation (07/13/2024 7:40 AM MARKETING STRATEGY MANAGER) Protein, sr 5.7(L) 6.2 - 8.2 g/dL Albumin 3.7 3.2 - 5.0 g/dL MT [facility] Alpha-1 globulin 0.3 0.2 - 0.4 g/dL [...] MD, PhD 07/14/2024 Blood 07/13/2024 7:40 AM MARKETING STRATEGY MANAGER 07/13/2024 8:42 AM MARKETING STRATEGY MANAGER Hermelindo Butler MD LAB BLOOD ORDER EALNA Final Result Performing Organization Address City/[facility]/ZIP Co de Phone Number [facility] Department [place] [address] * Magnesium (07/13/2024 7:40 AM MARKETING STRATEGY MANAGER) Pathologist [facility] Magnesium 2.2 1.4 - 2.5 mg/dL Blood 07/13/2024 7:40 AM MARKETING STRATEGY MANAGER 07/13/2024 7:47 AM MARKETING STRATEGY MANAGER Hermelindo Butler MD LAB BLOOD ORDER ELANA Final Result [facility] Department [place] [address] * Lactate dehydrogenase (LD) (07/13/2024 7:40 AM MARKETING STRATEGY MANAGER) Lactate dehydrogenase (LDH) 152 100 - 250 Units/L Blood 07/13/2024 7:40 AM MARKETING STRATEGY MANAGER 07/13/2024 7:47 AM MARKETING STRATEGY MANAGER Hermelindo Butler MD LAB BLOOD ORDER ELANA Final Result [facility] [place] [address] * Gamma GT (07/13/2024 7:40 AM MARKETING STRATEGY MANAGER) GGT 27 10 - 50 Units/L Blood 07/13/2024 7:40 AM MARKETING STRATEGY MANAGER 07/13/2024 7:47 AM MARKETING STRATEGY MANAGER Hermelindo Butler MD LAB BLOOD ORDER ELANA Final Result Performing Organization Address [facility] de Phone Number [facility] [place] [address] * (ABNORMAL) IgA (07/13/2024 7:40 AM MARKETING STRATEGY MANAGER) [facility] Immunoglobulin A <50(L) 70 - 400 mg/dL Blood 07/13/2024 7:40 AM MARKETING STRATEGY MANAGER 07/13/2024 7:59 AM MARKETING STRATEGY MANAGER Hermelindo Butler MD LAB BLOOD ORDER ELANA Final Result Performing Organization Address City/[facility] Co de Phone Number [facility] Department [place] [address] * (ABNORMAL) IgM (07/13/2024 7:40 AM MARKETING STRATEGY MANAGER) Immunoglobulin M <25(L) 40 - 230 mg/dL Blood 07/13/2024 7:40 AM MARKETING STRATEGY MANAGER 07/13/2024 7:59 AM MARKETING STRATEGY MANAGER Hermelindo Butler MD LAB BLOOD ORDER ELANA Final Result Performing Organization Address City/[facility] Co de Phone Number [facility] Department [place] [address] * (ABNORMAL) IgG (07/13/2024 7:40 AM MARKETING STRATEGY MANAGER) Pathologist [facility] Immunoglobulin G <300(L) 700 - 1,600 mg/dL Blood 07/13/2024 7:40 AM MARKETING STRATEGY MANAGER 07/13/2024 7:59 AM MARKETING STRATEGY MANAGER Hermelindo Butler MD LAB BLOOD ORDER ELANA Final Result [facility] Department [place] [address] * (ABNORMAL) Comprehensive metabolic panel (07/13/2024 7:40 AM MARKETING STRATEGY MANAGER) Pathologist [facility] Sodium 144 135 - 145 mmol/L Potassium, [...] Calcium 9.4 8.5 - 10.3 mg/dL [facility] Bilirubin, total 0.7 0.1 - 1.2 mg/dL [facility] Protein, pl 6.2(L) 6.5 - 8.5 g/dL [facility] Albumin 4.1 3.5 - 5.0 g/dL [facility] Alk phos 65 40 - 130 Units/L [facility] ALT 18 7 - 55 Units/L [facility] AST 16 10 - 50 Units/L [facility] Blood 07/13/2024 7:40 AM MARKETING STRATEGY MANAGER 07/13/2024 7:47 AM MARKETING STRATEGY MANAGER Hermelindo Butler MD LAB BLOOD ORDER ELANA Final Result Performing Organization Address [facility] de Phone Number [facility] [place] [address] * aPTT (07/13/2024 7:24 AM MARKETING STRATEGY MANAGER) aPTT 28 28 - 38 sec Comment: Interpretive Data Heparin therapeutic range: 66.0 - 100.0 seconds. Range based on correlation with therapeutic heparin activity range of 0.3 - 0.7 Units/mL. Current interpretive data was last revised on 2023. Blood 07/13/2024 7:24 AM MARKETING STRATEGY MANAGER 07/13/2024 7:59 AM MARKETING STRATEGY MANAGER Hermelindo Butler MD LAB BLOOD ORDER ELANA Final Result Performing Organization Address [facility] de Phone Number [facility] [place] [place] [address] * Protime-INR (07/13/2024 7:24 AM MARKETING STRATEGY MANAGER) PT 11.5 9.7 - 13.0 sec INR 1.06 0.90 - 1.20 [facility] Comment: Interpretive data Oral anticoagulant therapeutic ranges: Venous thromboembolism prophylaxis or treatment: 2.0-3.0 CARDIOLOGY Standard range: 2.0-3.0 High-intensity range: 2.5-3.5 Refer to indication-specific guidelines for appropriate target ranges for prosthetic heart valve replacement. Current interpretive data was last revised on 2019. Blood 07/13/2024 7:24 AM MARKETING STRATEGY MANAGER 07/13/2024 7:59 AM MARKETING STRATEGY MANAGER Hermelindo Butler MD LAB BLOOD ORDER ELANA Final Result Performing Organization Address [facility] Co de Phone Number [facility] Department [place] [address] * Hepatitis C antibody (10/16/2021 9:50 AM CDT) Hep C Ab Nonreactive Nonreactive [facility] Comment:Antibodies to HCV no t detected. Does NOT exclude the possibility of recent exposure to HCV. Blood 10/16/2021 9:50 AM CDT 10/16/2021 11:22 AM CDT Hermelindo dupree MD LAB MICROBIOLOGY - GENERAL ORDERABLES Edited Result - Final Performing Organization Address [facility] de Phone Number [facility] Department [place] [address] from Last 3 Months or Most Recently Relevant to Health Maintenance [place] [address] MEDICARE [employer] SENIOR SUPPLEMENT MEDICARE [facility] MEDICARE AETNA SENIOR SUPPLEMENT Advance Directives For more information, please contact: [phone] Documents on File Type Date Recorded Patient Consulting It Architect Expl anation ADVANCE DIRECTIVE 11/29/2017 11:05 AM FOX R OF CASINO DEALER ADVANCE DIRECTIVE 11/12/2017 3:59 PM POWER OF CASINO DEALER * Full Code (Latest Code Status on [...] 2:28 PM 05/31/2021 2:39 PM Care Teams Bladder Blower Relationship Specialty Start Date End Date Jatin Gamble MD [address] [place] [address] PCP - General 10/07/16 Hermelindo Butler MD [address] [place] [address] [facility] Oncology 12/02/17 Roberto Rojo MD [address] [place] [address] Medical [facility] Hematology and Oncology 12/02/17 Jatin Gamble MD [address] [place] [address] Referring Physician Internal Medicine 12/02/17 Lyndsey Fagan NP [address] [place] [address] Nurse Practitioner Medical Oncology 08/03/20 Erlin Servin MD [address] [place] [address] [place] [address] Consulting Physician Otolaryngology 10/04/22 [place] [address] [address] Consulting Physician Urology 05/28/23 Salvador Norris MD [facility] [address] [place] [address] Consulting Physician Infectious Diseases 09/15/24 Miscellaneous, Not In File 09/15/24
== END 2024-10-08 08:16 | disposition home or self-care (01) ==
LOC: CHSLAB 12:26
PROVIDERS: PCP Internal Medicine
DX: C90.00 Multiple myeloma not having achieved remission (principal)
CPT/HCPCS: 36415; 80053

== ENCOUNTER 2024-10-12 15:36 | Outpatient (CLI) | payer MEDICARE, SELFPAY ==
--- OUTSIDE RECORDS SUMMARY | 2024-10-12 15:39 | XMS_ITS | Continuity of Care Document ---
Author Organization [facility] Address [address] [facility] [address] [place] [address] Phone Care Team Providers Care Beveler Name Role Phone Cesar Vora MD, FACS [...] ER 100 mg tablet,extended release - Active Elgin 5 mg-325 mg tablet take 1 tablet [...] Visit, New [facility], [address] [place] [address] [employer] [address], [place], [place], [id number], [place] tel:[phone] SEC [place] Eyelid infections (chief complaint) Episcleritis of left eyeOther vitreous opacities, bilateralOth er visual disturbances 2 Vielka Cesar. [address] [employer] [facility], [address], [place], [place], [id number], [place]. tel:[phone] Specialist: Hermelindo Lopez MD, [address] [facility] [address], [place], [address]. tel:[phone] Provider: Vicky Ray OD, [address] [facility], [place], [address]. tel:[phone] [facility], [address], [place], [place], [id number], [place] tel:[phone] SEC [place] Professional yag pc OS evaluation (chief complaint) Bilateral artificial lens implantOther secondary cataract, left eyeCyst of right eyelidPVD (posterior vitreous detachment), left eyeBilateral ocular hypertension Oct-1 8 Jose R Franco. [address] [facility], [address], [place], [place], [address], [place]. tel:[phone] Referring Provider: Michele Orellana OD A, [address] [place] [address] Eye [facility], [place], [address]. tel:[phone] [facility], [address] [place], [place] [address]crest [address], [place], [place], [id number], [place] tel:[phone] SEC Steven Sifuentes Yag PC Eval (chief complaint) No Information 7 Le Roy Cesar. [address] [place], [place] [address] [employer], [address], [place], [place], [address], [place]. tel:[phone] Referring Provider: Michele Orellana OD A, [address] [place] [address], [place], [address]. tel:[phone] [facility], [address], [place], [place], [address], [place] tel:[phone] SEC [place] Petrona Coybienvenidorosalio No Information [address] [facility] [employer], [place], [place], [address], [place]. tel:[phone] [facility], [facility] [employer] [address], [place], [place], [address], [place] tel:[phone] [facility] No Information [address] [facility] [employer], [place], [place], [address], [place]. tel:[phone] Referring Provider: Michele Orellana OD A, [address] [place] [address], [place], [address]. tel:[phone] [facility]ender [facility], [address] [place] [address] [address], [place], [place], [address], [place] tel:[phone] SEC Steven [address] No Information 5 Vielka Guerrero. [address] [employer] [facility], [address], [place], [place], [address], [place]. tel:[phone] Referring Provider: Michele Acevedo, [address] [facility], [place], [address]. tel:[phone] [facility], [address] [place] [address] [address], [place], [place], [address], [place] tel:[phone] [facility] No Information 5 Viel[address] [facility] [address] [employer] [facility], [address], [place], [place], [address], [place]. tel:[phone] Referring Provider: Michele Acevedo, [address] [facility], [place], [address]. tel:[phone] [facility], [address] [place] [address] [address], [place], [place], [address], [place] tel:[phone] SEC Steven [address] Cataract Evaluation (chief complaint) No Information 5 Vielka Guerrero. [address] [place] [address] [employer] [facility], [address], [place], [place], [address], [place]. tel:[phone] Referring Provider: Michele Acevedo, [address] [place], [address]. tel:[phone] Family History Family Member Type Diagnosis Age At Onset Mother Problem (finding) diabetes melli tus in first degree relative Mother Problem (finding) glaucoma Payers Payer name Insurance type Covered alliance party ID Authoriza tion(s) [place] [id number] Aetna Mdcr Supp CI [id number] Social History Type Description Quantity Date Captured [...]
--- OUTSIDE RECORDS SUMMARY | 2024-10-12 15:39 | XMS_ITS | Encounter Summary ---
Author Organization [facility] Healthcare Address [address] [place] [address] Care Team Providers Care Roller Die Cutting Machine Operator Name Role Phone Jatin Gamble MD Primary Care Provider Hermelindo Butler MD Unavailable Roberto Rojo MD Unavailable Jatin Gamble MD Unavailable [phone] Garry Dukes MD Unavailable [phone] Lyndsey Fagan NP Unavailable Erlin Servin MD Unavailable Julian Valdez MD Unavailable [phone] Salvador Norris MD Unavailable Miscellaneous, Not In File Unavailable Unava ilable Encounter Details Date Type Department Care Team (Late st Contact Info) Description 11/22/2021 Documentation [facility] Case Management [address] [place] [address] Forrest Epstein RN Social History Tobacco Use Types Packs/Day Years Used Date Smoking Tobacco: Never Smokeless Tobacco: Never Alcohol Use Standard Drinks/Week Comments No 0 (1 standard drink = 0.6 oz pur e alcohol) Sex and Gender Information Value Date Recorded Sex Assigned at Not on file Legal Sex 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 DELIVERY TECHNICIAN Gender Identity Not on file Sexual [...] documented as of this encounter Care Teams Roller Die Cutting Machine Operator Relationship Specialty Start Date End Date Jatin Gamble MD [address] [place] [address] PCP - General 10/07/16 Hermelindo Butler MD [address] [place] [address] [facility] Medical Oncology 12/02/17 Roberto Rojo MD [address] [place] [address] Medical [facility] Hematology and Oncology 12/02/17 Jatin Gamble MD [address] [place] [address] Referring Physician Internal Medicine 12/02/17 Garry Dukes MD [address] [place] [address] Referring Physician Urology 12/02/17 05/27/23 Lyndsey Fagan NP [address] [place] [address] Nurse Practitioner Medical Oncology 08/03/20 Erlin Servin MD [address] [place] [address] Consulting Physician Otolaryngology 10/04/22 [place] [address] [place] [address] Consulting Physician Urology 05/28/23 Salvador Norris MD [address] [place] [address] Consulting Physician Infectious Diseases 09/15/24 Miscellaneous, Not In File 09/15/24 documented as of this encounter
--- OUTSIDE RECORDS SUMMARY | 2024-10-12 15:39 | XMS_ITS | Encounter Summary ---
Author Organization [facility] Address [address] [place] [address] Phone Care Team Providers Care Finished Hardware Erector Name Role Phone Jatin Gamble MD Primary Care Provider Hermelindo Butler MD Unavailable Roberto Rojo MD Unavailable [phone] Jatin Gamble MD Unavailable [phone] Garry Dukes MD Unavailable [phone] Lyndsey Fagan NP Unavailable [phone] Erlin Servin MD Unavailable [phone] Julian Valdez MD Unavailable Salvador Norris MD [...] on file Legal Sex 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 TEASELER Gender Identity Not on file Sexual Orientation [...] documented as of this encounter Care Teams Finished Hardware Erector Relationship Specialty Start Date End Date Jatin Gamble MD [address] [place] [address] PCP - General 10/07/16 Hermelindo Butler MD [address] [place] [address] [facility] Medical Oncology 12/02/17 Roberto Rojo MD [facility] [address] [place] [address] Medical [facility] Hematology and Oncology 12/02/17 Jatin Gamble MD [address] [place] [address] Referring Physician Internal Medicine 12/02/17 Garry Dukes MD [address] [place] [address] Referring Physician Urology 12/02/17 05/27/23 Lyndsey Fagan NP [address] [place] [address] Nurse Practitioner Medical Oncology 08/03/20 Erlin Servin MD [address] [place] [address] Consulting Physician Otolaryngology 10/04/22 [place] [address] [place] [address] Consulting Physician Urology 05/28/23 Salvador Norris MD [address] [place] [address] Consulting Physician Infectious Diseases 09/15/24 Miscellaneous, Not In File 09/15/24 documented as of this encounter
--- OUTSIDE RECORDS SUMMARY | 2024-10-12 15:40 | XMS_ITS | Clinical Summary ---
Author Organization [facility] Address [address] [place] [id number] Care Team Providers Care Marine Steam Fitter Name Role Phone Unavailable Primary Care Provider [...]
--- OUTSIDE RECORDS SUMMARY | 2024-10-12 15:40 | XMS_ITS ---
Author Organization [facility] Address [address] [place] [address] Care Team Providers Care Meat Stringer Name Role Phone Jatin Gamble MD Primary Care Provider [phone] Hermelindo Butler MD Unavailable Roberto Rojo MD Unavailable [phone] Jatin Gamble MD Unavailable [phone] Lyndsey Fagan NP Unavailable [phone] Erlin Servin MD Unavailable Julian Valdez MD Unavailable [phone] Salvador Norris MD Unavailable Miscellaneous, Not In File Unavailable Unava ilable Active Problems Patient Care Coordination No te Formatting of this note is d ifferent from the original. BMT Inpatient Care Coordination Overview Diagnosis MM Floor [id number] Treatment Plan Clinical Trial [id number] Rahel Reason for Admission JOHN Transplant/IEC Planning [...] Medical Assistants Post-Discharge Follow-Up Living Situation/Distance from [facility] (45 min) Caregiver Self, Lab/Transfusion [...] is a risk of orbital injury and COIN MACHINE SERVICE REPAIRER injury which could result in blindness or [...] this. Assessment & Plan (07/09/2022 7:42 PM CUSTOMER ACCOUNT MANAGER): I talked with him quite a [...] weeks. Assessment & Plan (05/26/2022 4:16 PM CUSTOMER ACCOUNT MANAGER): He does have pretty significant sinusitis [...] day. Assessment & Plan (05/26/2022 4:17 PM CUSTOMER ACCOUNT MANAGER): It is very possible that his cough could be due to sinusitis also. Hopefully that will continue to improve as we treat. He understands. Immunocompromised 11/13/2021 Multiple myeloma not having achieved remission 0 10/28/2021 Cancer Staging:Clinical stage from 10/16/2021:RISS Stage II(Xwpx-5-wjqbcgwpufssv (mg/L): 3.7, Albumin (g/dL): 4.2, ISS: Stage [...] and Dexamethasone in June 2021 Clinical trial [id number] initiated on 10/29/21; C46D1 08/03/24. BMT following [...] he got a TTE on 10/19 at [facility] however unclear why not currently in the system - May need to repeat TTE prior to treatment if results unavailable - Continue OI ppx with acyclovir 400mg BID - Begin trial [id number], a Bispecific Antibody Targeting BCMA treatment - [...] he got a TTE on 10/19 at [facility] however unclear why not currently in the system - May need to repeat TTE prior to treatment if results unavailable - Continue OI ppx with acyclovir 400mg BID - Begin trial [id number], a Bispecific Antibody Targeting BCMA treatment - [...] BID Assessment & Plan (05/31/2021 10:51 AM CUSTOMER ACCOUNT MANAGER): Continue home pepcid, asx Renal mass 05/30/2021 Assessment & Plan (05/31/2021 10:51 AM CUSTOMER ACCOUNT MANAGER): Admitted for observation after L renal [...] 07/17/2023 Assessment & Plan (05/31/2021 10:52 AM CUSTOMER ACCOUNT MANAGER): Follows with oncology on daratumumab monotherapy [...] blood in urine Follow up pathology from frwpqdzlq-kql-ennuhdeu high-grade papillary urothelial carcinoma (grade 2) --follow [...] blood in urine Follow up pathology from jwbwrxdfv-yot-wfmhyjyw high-grade papillary urothelial carcinoma (grade 2) --follow [...] supplementation Assessment & Plan (05/31/2021 10:51 AM CUSTOMER ACCOUNT MANAGER): Stable on home losartan, nebivolol, triamterene-HCTZ 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/23/2013 Current Treatment and Therapy Plans - INPT/OUTPT - [facility] - MM - [id number].0001 - Arm B - Dose Expansion Phase - TNB-383B Monotherapy* Plan Start Date:10/29/2021 Plan Provider:Hermelindo Butler MD Linked Problems Multiple myeloma in relapse (HCC) Treatment Medications Current Day (Day 1 , Cycle 49 - Planned for 10/19/2024) INV-[facility] (/TN B-383B.0001) Etentamig (TNB-383B/ABBV-383) IVPB in 50 mL (ANTI-LAG-3)INV-[facility] Etentamig (TNB-383B/ABBV-383) (/TNB-383B.0001)INV-[facility] sodium chloride 0.9 % INV-[facility] Etentamig (TNB-383B/ABBV-383) (IVSS-FREE FORMULATION) (/TNB-383B.2024) 40 mg in sodium chloride 0.9% 30 mL IVPBINV-[facility] sodium chloride 0.9 % flush IVPB 20 [...]
--- OUTSIDE RECORDS SUMMARY | 2024-10-12 15:40 | XMS_ITS | Encounter Summary ---
Author Organization [facility] Healthcare Address [address] [place] [address] Care Team Providers Care Transmission Mechanic Name Role Phone Jatin Gamble MD Primary Care Provider Hermelindo Butler MD Unavailable Roberto Rojo MD Unavailable [phone] Jatin Gamble MD Unavailable Lyndsey Fagan NP Unavailable Erlin Servin MD Unavailable Julian aVldez MD Unavailable Salvador Norris MD Unavailable Miscellaneous, Not In File Unavailable Unava ilable Reason for Visit * MRI/CAT/PET Scan (Routine) - Pending Review Specialty Diagnoses / Procedures Referred By Contac t Referred To Contact Radiology Diagnoses Elevated prostate specific antigen (PSA) Procedures MRI Pelvis WO Contrast MRI Pelvis [place] [address] [place] [address] Phone: tel: fax: [facility] Referral ID Status Reason Start Date Expiration Date V isits Requested Visits Authorized [id number] Pending Review 09/16/2024 10/16/2025 1 1 Encounter Details Date Type Department Care Team (Latest Contact Info) Description 10/10/2024 6:31 AM CDT - 10/10/2024 11:59 PM CDT Hospital Encounter [facility] [address] [place] [address] Elevated prostate specific antigen (PSA) Discharge Disposition: Discharge to home or self care Social History Tobacco Use Types Packs/Day Years Used Date Smoking Tobacco: Never Smokeless Tobacco: Never Alcohol Use Standard Drinks/Week Comments No 0 (1 standard drink = 0.6 oz pur e alcohol) [facility] Utilities Answer Date Recorded In the past 12 months has th e [employer], gas, oil, or water [employer] threatened to shut off services in your [...] week 09/13/2024 How often do you attend caro center or religion services? More than 4 times per year 09/13/2024 Do you belong to any clubs o r organizations such as taoism groups, unions, fraternal or athletic groups, or [...] any time in the past 12 m [facility], were you homeless or living in a long term (including now)? No 09/13/2024 Personal Safety Answer Date Recorded Have you ever been in or are you currently in a harmful physical or emotional relationship or is someone making you feel afraid or unsafe? 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 Gender Identity Not on file Sexual Orientation Not on file documented as of this encounter Medications at Time of Discharge acyclovir (ZOVIRAX) 400 mg tabletIndications :Multiple myeloma, remission status unspecified (HCC) Take 1 tablet (400 mg total) by mouth 2 (two) times a day 60 tablet 11 08/03/2024 allopurinoL (ZYLOPRIM) 100 mg tablet Take 1 tablet (100 mg total) by mouth daily 30 tablet 6 12/16/2023 famotidine (PEPCID) 20 mg tablet Take 1 tablet (20 mg total) by mouth 2 (two) times a day HYDROcodone-aceta minophen (NORCO) 10-325 mg per tabletIndications :Pain Take 0.5 tablets by mouth every 8 (eight) hours as needed for pain 120 tablet 12/26/2020 losartan (COZAAR) 50 mg tablet Take 1 tablet (50 mg total) by mouth daily 09/01/2021 potassium chloride ER (KLOR-CON) 10 mEq CR tabletIndications :hypokalemia prevention Take 1 tablet/capsule (10 mEq total) by mouth daily Takes with food 03/01/2014 triamcinolone (KENALOG) 0.5 % cream Apply topically 2 (two) times a day 15 g 01/27/2023 TRIAMTERENE-HYDRO CHLOROTHIAZIDE 37.5-25 mg per tabletIndications :hypertension 1 tablet/capsule One tablet daily alternating with 1/2 tablet daily 05/16/2019 documented as of this encounter Discharge Disposition Disposition Code Departure Means Destination Discharge to home or self care documented in this encounter Plan of Treatment Not on file documented as of this encounter Procedures Procedure Name Priority Date/Time Associated Diagnosis Comments MRI PELVIS WO CONTRAST Schedule Routine, Read Routine (OP Routine) 10/10/2024 8:14 AM CDT Elevated prostate specific antigen (PSA) documented in this encounter Results * MRI Pelvis WO Contrast (10/10/2024 8:14 AM CDT) Anatomical Region Laterality Modality Pelvis N/A Magnetic Resonan ce 10/11/2024 10:3 5 AM CDT Impressions 10/11/2024 10:35 AM CDT 1. No suspicious prostate lesions per the PI-RADS version 2.1 scoring system. 2. Sequela of chronic bladder outlet obstruction from prostatomegaly, including a trabeculated thick-walled urinary bladder, bladder stones, and bilateral hydroureter, right greater than left, not substantially changed from the recent CT. Electronically signed by: Tremaine Ceballos M.D. Narrative 10/11/2024 10:35 AM CDT EXAMINATION: MAGNETIC RESONANCE IMAGING OF THE PELVIS WITHOUT CONTRAST HISTORY: Elevated prostate-specific antigen level of 6.3 TECHNIQUE: MR imaging of the prostate gland was performed with a torso phased array coil at 3T without administration of intravenous gadolinium. The examination was terminated prematurely at patient's request. Protocol: Prostate 3T COMPARISON: CT 08/24/2024 FINDINGS: Prostate volume: 102 cc The prostate transition zone is enlarged with benign prostatic hyperplasia. The prostate was assessed using the PI-RADS version 2.1 scoring system. There are no suspicious lesions in the prostate (PI-RADS 3 or greater) Staging Information: No enlarged lymph nodes are identified. No suspicious osseous lesions are identified. Other findings: There are numerous large stones within a trabeculated, thick-walled urinary bladder consistent with chronic bladder outlet obstruction. There is moderate right hydroureteronephrosis and mild left hydroureter, not substantially changed from the recent CT. Bilateral renal cysts are partially imaged. The imaged bowel is normal caliber. No ascites. Procedure Note Tremaine Ceballos MD - 10/11/2024 EXAMINATION: MAGNETIC RESONANCE IMAGING OF THE PELVIS WITHOUT CONTRAST HISTORY: Elevated prostate-specific antigen level of 6.3 TECHNIQUE: MR imaging of the prostate gland was performed with a torso phased array coil at 3T without administration of intravenous gadolinium. The examination was terminated prematurely at patient's request. Protocol: Prostate 3T COMPARISON: CT 08/24/2024 FINDINGS: Prostate volume: 102 cc The prostate transition zone is enlarged with benign prostatic hyperplasia. The prostate was assessed using the PI-RADS version 2.1 scoring system. There are no suspicious lesions in the prostate (PI-RADS 3 or greater) Staging Information: No enlarged lymph nodes are identified. No suspicious osseous lesions are identified. Other findings: There are numerous large stones within a trabeculated, thick-walled urinary bladder consistent with chronic bladder outlet obstruction. There is moderate right hydroureteronephrosis and mild left hydroureter, not substantially changed from the recent CT. Bilateral renal cysts are partially imaged. The imaged bowel is normal caliber. No ascites. IMPRESSION: 1. No suspicious prostate lesions per the PI-RADS version 2.1 scoring system. 2. Sequela of chronic bladder outlet obstruction from prostatomegaly, including a trabeculated thick-walled urinary bladder, bladder stones, and bilateral hydroureter, right greater than left, not substantially changed from the recent CT. Electronically signed by: Tremaine Ceballos M.D. Yesika NEUMANN IM MRI PROCEDURES [place] l Result documented in this encounter Visit Diagnoses Diagnosis Elevated prostate specific antigen (PSA) documented in this encounter Care Teams Transmission Mechanic Relationship Specialty Start Date End Date Jatin Gamble MD [address] [place] [address] PCP - General 10/07/16 Hermelindo Butler MD [address] [place], [place] [id number] Medical Oncologist/H[facility]ologunm cancer center Medical Oncology 12/02/17 Roberto Rojo MD [address] [place] [address] Medical Oncologist/Hematologunm cancer center Hematology and Oncology 12/02/17 Jatin Gamble MD [address] [place] [address] Referring Physician Internal Medicine 12/02/17 Lyndsey Fagan NP [address] [place] [address] Nurse Practitioner Medical Oncology 08/03/20 Erlin Servin MD [address] [place] [address] [place] [address] Consulting Physician Otolaryngology 10/04/22 [place] [address] [place] [address] Consulting Physician Urology 05/28/23 Salvador Norris MD [facility] [id number] [place] [address] Consulting Physician Infectious Diseases 09/15/24 Miscellaneous, Not In File 09/15/24 documented as of this encounter
--- OUTSIDE RECORDS SUMMARY | 2024-10-12 15:41 | XMS_ITS | Clinical Summary ---
Author Organization [facility] Address [address] [place] [address] Care Team Providers Care Artisan Plasterer Name Role Phone Jatin Gamble MD Primary Care Provider Hermelindo Butler MD Unavailable Roberto Rojo MD Unavailable Jatin Gamble MD Unavailable Lyndsey Fagan NP Unavailable [phone] Erlin Servin MD Unavailable Julian Valdez MD [...] mouth daily Takes with food 4 Active TRIAMTERENE-HYD ROCHLOROTHIAZID E 37.5-25 mg per tabletIndicatio ns:hypertension 1 tablet/capsule One tablet daily alternating with 1/2 tablet daily 9 Active HYDROcodone-li taminophen (NORCO) 10-325 mg per tabletIndicatio ns:Pain Take 0.5 tablets by mouth every 8 (eight) hours as needed for pain 120 tablet 1 Active losartan (COZAAR) 50 mg tablet Take 1 tablet (50 mg total) by mouth daily 2 Active triamcinolone (KENALOG) 0.5 % cream Apply topically 2 (two) times a day 15 g 3 Active Additional Information Patient not taking.Reported on 09/11/2024 famotidine (PEPCID) 20 mg tablet Take 1 tablet (20 mg total) by mouth 2 (two) times a day Active allopurinoL (ZYLOPRIM) 100 mg tablet Take 1 tablet (100 mg total) by mouth daily 30 tablet 6 4 Active acyclovir (ZOVIRAX) 400 mg tabletIndicatio ns:Multiple myeloma, remission status unspecified (HCC) Take 1 tablet (400 mg total) by mouth 2 (two) times a day 60 tablet 11 5 08/03/19 26 Active nebivoloL (BYSTOLIC) 5 mg tablet Take 2 tablets (10 mg total) by mouth daily 60 tablet 5 Active ampicillin 2,000 mg in sodium chloride 0.9% 100 mL IVPBIndications :Blood Stream/Endovasc ular Infection Infuse 2,000 mg into a venous catheter every 6 (six) hours for 30 minutes for 10 days at 200 mL/hr 5 09/26/19 25 Active Problems Patient Care Coordination No te Formatting of this note is d ifferent from the original. BMT Inpatient Care Coordination [place] [address] Treatment Plan Clinical Trial [id number] Ramesh Reason for Admission JOHN Transplant/IEC Planning [...] Medical Assistants Post-Discharge Follow-Up Living Situation/Distance from [place], [place] (45 min) Caregiver Self, Lab/Transfusion Frequency [...] is a risk of orbital injury and PLAN NURSE injury which could result in blindness [...] this. Assessment & Plan (07/09/2022 7:42 PM LABORATORY TECHNICAL SPECIALIST): I talked with him quite a [...] weeks. Assessment & Plan (05/26/2022 4:16 PM LABORATORY TECHNICAL SPECIALIST): He does have pretty significant sinusitis [...] day. Assessment & Plan (05/26/2022 4:17 PM LABORATORY TECHNICAL SPECIALIST): It is very possible that his cough could be due to sinusitis also. Hopefully that will continue to improve as we treat. He understands. Immunocompromised 11/13/2021 Multiple myeloma not having achieved remission 0 10/28/2021 Cancer Staging:Clinical stage from 10/16/2021:RISS Stage II(Qarl-1-sknihctahpjeg (mg/L): 3.7, Albumin (g/dL): 4.2, ISS: Stage [...] and Dexamethasone in June 2021 Clinical trial [id number] initiated on 10/29/21; C46D1 08/03/24. BMT following [...] he got a TTE on 10/19 at [facility] however unclear why not currently in the system - May need to repeat TTE prior to treatment if results unavailable - Continue OI ppx with acyclovir 400mg BID - Begin trial [id number], a Bispecific Antibody Targeting BCMA treatment - [...] he got a TTE on 10/19 at [facility] however unclear why not currently in the system - May need to repeat TTE prior to treatment if results unavailable - Continue OI ppx with acyclovir 400mg BID - Begin trial [id number], a Bispecific Antibody Targeting BCMA treatment - [...] BID Assessment & Plan (05/31/2021 10:51 AM LABORATORY TECHNICAL SPECIALIST): Continue home pepcid, asx Renal mass 05/30/2021 Assessment & Plan (05/31/2021 10:51 AM LABORATORY TECHNICAL SPECIALIST): Admitted for observation after L renal [...] 07/17/2023 Assessment & Plan (05/31/2021 10:52 AM LABORATORY TECHNICAL SPECIALIST): Follows with oncology on daratumumab monotherapy [...] blood in urine Follow up pathology from mhsjudneg-zcx-aurmgrsx high-grade papillary urothelial carcinoma (grade 2) --follow [...] blood in urine Follow up pathology from aowhwiqme-lcx-wmdiqouj high-grade papillary urothelial carcinoma (grade 2) --follow [...] supplementation Assessment & Plan (05/31/2021 10:51 AM LABORATORY TECHNICAL SPECIALIST): Stable on home losartan, nebivolol, triamterene-HCTZ [...] Encounters Date Type Department Care Team Description 10/10/2024 6:31 AM CDT - 10/10/2024 11:59 PM CDT Hospital Encounter [facility] [address] [place] [id number] Elevated prostate specific antigen (PSA) Discharge Disposition: Discharge to home or self care 10/07/2024 Orders Only [facility] Transplant [address] [place] [phone] Hermelindo Packer MD 10/05/2024 Orders Only [facility] Scanning, Provider 10/05/2024 Orders Only [facility] Transplant [address] [place] [phone] Hermelindo Packer MD Multiple myeloma, remission status unspecified (HCC) (Primary Dx) 09/28/2024 9:30 AM CDT Infusion [facility] - Infusion [facility] [address] [address] Multiple myeloma in relapse (HCC) (Primary Dx); Multiple myeloma in remission (HCC) 09/28/2024 8:30 AM CDT Office Visit [facility] Transplant [address] [place] [phone] Lyndsey Fagan NP Multiple myeloma, remission status unspecified (HCC) (Primary Dx); Multiple myeloma in remission (HCC); Multiple myeloma in relapse (HCC) 09/28/2024 7:30 AM CDT Clinical Support [facility] - Lab Collection [facility] [address] [place] [address] Multiple myeloma in remission (HCC); Multiple myeloma in relapse (HCC); Multiple myeloma, remission status unspecified (HCC) 09/15/2024 Orders Only [facility] [address] [place] [address] Preeti Wayne [facility] 09/11/2024 1:43 AM CDT - 09/15/2024 5:22 PM CDT Hospital [place] [address] [place] [address] Emory Santana MD [place], MD Bonifacio Carrillo, Choco Murcia, DO Oliguria (Primary Dx); Bacteremia Discharge Disposition: Discharge to home, home health skilled care 09/10/2024 Orders Only Urology Yesika Capone PA Elevated prostate specific antigen (PSA) (Primary Dx) 09/07/2024 Orders Only [facility] Transplant [address] [place] [phone] Hermelindo Packer MD 09/06/2024 Orders Only [facility] Transplant [address] [place] [address] Lyndsey Fagan NP 08/31/2024 10:00 AM CDT Infusion [facility] - Infusion [address] [facility] Floor [address] [place] [address] Multiple myeloma in relapse (HCC) (Primary Dx); Multiple myeloma in remission (HCC) 08/31/2024 9:00 AM CDT Office Visit [facility] Transplant [address] [place] [phone] Hermelindo Packer MD Multiple myeloma in relapse (HCC) (Primary Dx); Multiple myeloma in remission (HCC) 08/31/2024 8:45 AM CDT Clinical Support [facility] - Lab Collection [address] [facility] [address] [place] [address] Multiple myeloma in relapse (HCC); Multiple myeloma not having achieved remission (HCC); Multiple myeloma, remission status unspecified (HCC) 08/31/2024 8:15 AM CDT Clinical Support [facility] On[facility] Lab [address] [address] Multiple myeloma not having achieved remission (HCC); Multiple myeloma in remission (HCC) 08/30/2024 Orders Only [facility] Scanning, Provider 08/27/2024 Documentation Nephrology Ani Anne LCSW 08/27/2024 Orders Only [facility] [address] [phone] Hermelindo Packer MD Multiple myeloma not having achieved remission (HCC) (Primary Dx); JOHN (acute kidney injury) 08/25/2024 6:50 AM CDT Ancillary Procedure [facility] Vascular Lab IP 1 [facility] [address] [place] [address] 08/23/2024 11:13 PM CDT - 08/26/2024 4:50 PM CDT Hospital Encounter [address] [phone] Hermelindo Packer MD [place], Thabet J.M., MD JOHN (acute kidney injury) (Primary Dx) Discharge Disposition: Discharge to home or self care 08/23/2024 7:10 PM CDT - 08/23/2024 11:59 PM CDT Hospital Encounter [facility] Radiology [address] [place] [address] Discharge Disposition: Discharge to home or self care 08/23/2024 5:24 PM CDT - 08/23/2024 11:59 PM CDT Hospital Encounter [facility] ([facility]) [facility] [place] [address] Hermelindo Packer MD Elevated serum creatinine (Primary Dx); Multiple myeloma, remission status unspecified (HCC) Discharge Disposition: Discharge to home or self care 08/23/2024 Orders Only [address] [phone] Hermelindo Packer MD 08/23/2024 Orders Only [facility] Transplant [address] [place] [phone] Hermelindo Packer MD Multiple myeloma, remission status unspecified (HCC) (Primary Dx) 08/20/2024 Orders Only [facility] Scanning, Provider 08/10/2024 Orders Only [facility] Scanning, Provider 08/06/2024 1:45 PM LABORATORY TECHNICAL SPECIALIST Clinical Support [facility] - Lab Collection [facility] [address] [place] [address] 08/06/2024 1:00 PM LABORATORY TECHNICAL SPECIALIST - 08/06/2024 11:59 PM LABORATORY TECHNICAL SPECIALIST Hospital Encounter [facility] Radiology [address] [place] [address] Multiple myeloma, remission status unspecified (HCC) Discharge Disposition: Discharge to home or self care 08/06/2024 8:00 AM LABORATORY TECHNICAL SPECIALIST Infusion [facility] - [facility]fusion [address] [facility] [address] [place] [address] Multiple myeloma not having achieved remission (HCC) (Primary Dx); Hypogammaglobulinem ia 08/06/2024 7:15 AM LABORATORY TECHNICAL SPECIALIST Clinical Support [facility] Lab Collection [facility] [address] [place] [address] Multiple myeloma in relapse (HCC) (Primary Dx); Multiple myeloma, remission status unspecified (HCC); JOHN (acute kidney injury) 08/06/2024 Telephone [facility] [address] [place] [phone] Lyndsey Fagan NP 08/06/2024 Orders Only [facility] [address] [place] [phone] Lyndsey Fagan NP Multiple myeloma, remission status unspecified (HCC) (Primary Dx) 08/06/2024 Orders Only [facility] [address] [place] [phone] Lyndsey Fagan NP JOHN (acute kidney injury) (Primary Dx) 08/06/2024 Orders Only [facility] [address] [place] [phone] Charles-Morganstkandi inHermelindo MD Multiple myeloma, remission status unspecified (HCC) (Primary Dx) 08/03/2024 9:30 AM LABORATORY TECHNICAL SPECIALIST Infusion [facility] - Infusion [address] [place] [address] Multiple myeloma in relapse (HCC) (Primary Dx); Multiple myeloma in remission (HCC) 08/03/2024 8:30 AM LABORATORY TECHNICAL SPECIALIST Office Visit [facility] [address] [place] [phone] Charles-Nivia inHermelindo MD Multiple myeloma, remission status unspecified (HCC) (Primary Dx); Multiple myeloma in remission (HCC); Multiple myeloma in relapse (HCC) 08/03/2024 7:30 AM LABORATORY TECHNICAL SPECIALIST Clinical Support [facility] - Lab Collection [address] [place] [address] Multiple myeloma in remission (HCC); Multiple myeloma, remission status unspecified (HCC); Multiple myeloma in relapse (HCC) 08/03/2024 Orders Only [facility] Transplant [address] [place] [phone] Ligia inHermelindo MD 08/03/2024 Orders Only [facility] [address] [place] [phone] Charles-Morganstkandi inHermelindo MD 08/03/2024 Orders Only [facility] [address] [place] [phone] Gabrielerl-Morganste in, Hermelindo Stone MD 08/02/2024 Telephone [facility] [address] [facility] [address] Lyndsey Fagan NP 07/30/2024 Telephone [facility] [address] [phone] Charles-Morganstkandi in, Hermelindo Stone MD 07/27/2024 Telephone [facility] [address] [phone] Charles-Morganstkandi in, Hermelindo Stone MD 07/26/2024 Orders Only [facility] [address] [place] [phone] Charles-Morganstkandi in, Hermelindo Stone MD 07/26/2024 Orders Only [facility] [address] [place] [phone] Ariellastkandi in, Hermelindo Stone MD 07/26/2024 Telephone [facility] [address] [place] [phone] Margaret Kay RMA Medical Question/Miscellane ous from Last 3 Months Immunizations Immunization Administration [...] chemotherapy has chemo every 21 days at [facility] tx 09/24/22 Cough patient states D [...] drink = 0.6 oz pur e alcohol) [facility] Utilities Answer Date Recorded In the past 12 months has [employer], gas, oil, or water [employer] threatened to shut off services in your [...] often do you attend chur ch or confucianism services? More than 4 times per year 09/13/2024 Do you belong to any clubs o r organizations such as caodaism groups, unions, fraternal or athletic groups, or [...] any time in the past 12 m [facility], were you homeless or living [...] on file Legal Sex 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 LABORATORY TECHNICAL SPECIALIST Gender Identity Not on file Sexual [...] CDT Inhaled Oxygen Concentration - - Weight 123.4 kg (272 lb) 10/10/2024 6:44 AM CDT Height 175.3 cm (5' 9 ) 10/10/2024 6:44 AM CDT Body Mass Index 40.17 10/10/2024 6:44 AM CDT Plan of Treatment Health Maintenance Due [...] history exists Medical Devices Implanted Type Area Pharmacy Resource Tech Device Identifier Shelf Expiration Date Model / Serial / Lot Port Other - see comments Right: Chest Wall Description:Upon arrival to IR, not accessed Procedures Procedure Name Priority Date/Time Associated Diagnosis Comments MRI PELVIS WO CONTRAST Schedule Routine, Read Routine (OP Routine) 10/10/2024 8:14 AM CDT Elevated prostate specific antigen (PSA) SCAN - LABS 10/05/2024 EGFR STAT 09/28/2024 [...] AM CDT Multiple myeloma in relapse (HCC) MI INSJ NON-TUNNELED CENTRAL VENOUS CATH AGE 7 [...] Read Routine (OP Routine) 08/06/2024 2:42 PM LABORATORY TECHNICAL SPECIALIST Multiple myeloma, remission status unspecified (HCC) URINALYSIS, MICROSCOPIC ONLY Routine 08/06/2024 9:19 AM LABORATORY TECHNICAL SPECIALIST JOHN (acute kidney injury) PROTEIN / CREATININE RATIO, URINE, RANDOM Routine 08/06/2024 9:19 AM LABORATORY TECHNICAL SPECIALIST JOHN (acute kidney injury) URINALYSIS AND REFLEX TO MICROSCOPIC Routine 08/06/2024 9:19 AM LABORATORY TECHNICAL SPECIALIST JOHN (acute kidney injury) EGFR Routine 08/06/2024 7:43 AM LABORATORY TECHNICAL SPECIALIST Multiple myeloma, remission status unspecified (HCC) DIFFERENTIAL AUTO Routine 08/06/2024 7:4 3 AM LABORATORY TECHNICAL SPECIALIST Multiple myeloma, remission status unspecified (HCC) LACTATE DEHYDROGENASE Routine 08/06/2024 7:43 AM LABORATORY TECHNICAL SPECIALIST Multiple myeloma, remission status unspecified (HCC) CBC WITH AUTO DIFFERENTIAL Routine 08/06/2024 7:43 AM LABORATORY TECHNICAL SPECIALIST Multiple myeloma, remission status unspecified (HCC) COMPREHENSIVE METABOLIC PANEL Routine 08/06/2024 7:43 AM LABORATORY TECHNICAL SPECIALIST Multiple myeloma, remission status unspecified (HCC) LIPID PANEL Routine 08/06/2024 7:43 AM LABORATORY TECHNICAL SPECIALIST Multiple myeloma, remission status unspecified (HCC) PSA DIAGNOSTIC Routine 08/06/2024 7:43 AM LABORATORY TECHNICAL SPECIALIST Multiple myeloma, remission status unspecified (HCC) PROTIME-INR STAT 08/03/2024 9:21 AM LABORATORY TECHNICAL SPECIALIST Multiple myeloma in relapse (HCC) APTT STAT 08/03/2024 9:21 AM LABORATORY TECHNICAL SPECIALIST Multiple myeloma in relapse (HCC) MAGNESIUM STAT 08/03/2024 7:40 AM LABORATORY TECHNICAL SPECIALIST Multiple myeloma in relapse (HCC) GAMMA GT STAT 08/03/2024 7:40 AM LABORATORY TECHNICAL SPECIALIST Multiple myeloma in relapse (HCC) EGFR Routine 08/03/2024 7:40 AM LABORATORY TECHNICAL SPECIALIST Multiple myeloma, remission status unspecified (HCC) DIFFERENTIAL AUTO Routine 08/03/2024 7:4 0 AM LABORATORY TECHNICAL SPECIALIST Multiple myeloma, remission status unspecified (HCC) CBC WITH AUTO DIFFERENTIAL Routine 08/03/2024 7:40 AM LABORATORY TECHNICAL SPECIALIST Multiple myeloma, remission status unspecified (HCC) COMPREHENSIVE METABOLIC PANEL Routine 08/03/2024 7:40 AM LABORATORY TECHNICAL SPECIALIST Multiple myeloma, remission status unspecified (HCC) IGA Routine 08/03/2024 7:40 AM LABORATORY TECHNICAL SPECIALIST Multiple myeloma, remission status unspecified (HCC) IGG Routine 08/03/2024 7:40 AM LABORATORY TECHNICAL SPECIALIST Multiple myeloma, remission status unspecified (HCC) IGM Routine 08/03/2024 7:40 AM LABORATORY TECHNICAL SPECIALIST Multiple myeloma, remission status unspecified (HCC) IMMUNOGLOBULIN FREE LIGHT CHAINS Routine 08/03/2024 7:40 AM LABORATORY TECHNICAL SPECIALIST Multiple myeloma, remission status unspecified (HCC) LACTATE DEHYDROGENASE Routine 08/03/2024 7:40 AM LABORATORY TECHNICAL SPECIALIST Multiple myeloma, remission status unspecified (HCC) PROTEIN ELECTROPHORESIS, WITH REFLEX, SERUM Routine 08/03/2024 7:40 AM LABORATORY TECHNICAL SPECIALIST Multiple myeloma, remission status unspecified (HCC) IMMUNOTYPING Routine 08/03/2024 7:40 AM LABORATORY TECHNICAL SPECIALIST Multiple myeloma, remission status unspecified (HCC) HEMOGLOBIN A1C Routine 08/03/2024 7:40 AM LABORATORY TECHNICAL SPECIALIST Multiple myeloma, remission status unspecified (HCC) URINALYSIS, MICROSCOPIC ONLY Routine 08/03/2024 7:30 AM LABORATORY TECHNICAL SPECIALIST Multiple myeloma, remission status unspecified (HCC) URINE CULTURE Routine 08/03/2024 7:30 AM LABORATORY TECHNICAL SPECIALIST URINALYSIS AND REFLEX TO MICROSCOPIC AND CULTURE Routine 08/03/2024 7:30 AM LABORATORY TECHNICAL SPECIALIST Multiple myeloma, remission status unspecified (HCC) HEPATITIS C ANTIBODY STAT 10/16/2021 9:50 AM CDT Multiple myeloma in relapse (HCC) from Last 3 Months or Most Recently Relevant to Health Maintenance Results * MRI Pelvis WO Contrast (10/10/2024 [...] from the recent CT. Electronically signed by: Sanjay Levy 10/11/2024 10:35 AM CDT EXAMINATION: MAGNETIC RESONANCE [...] signed by: Tremaine Ceballos M.D. Yesika NEUMANN IMG MRI PROCEDURES [place] l Result * SCAN - LABS (10/05/2024) us Provider Scanning Final Result * Immunotyping, serum with interpretation (09/28/2024 7:43 AM CDT) Immunosubtraction Please see comment Comment: NO PARAPROTEIN DETECTED Reviewed and signed by Ivan Sims MD, PhD 09/29/2024 Blood 09/28/2024 7:43 AM CDT 09/28/2024 9:50 AM CDT Hermelindo Butler MD LAB BLOOD ORDER ELANA Final Result Performing Organization Address City/[facility] Co de Phone Number MT [facility] [place] [address] * (ABNORMAL) eGFR (09/28/2024 7:43 AM CDT) [...] LAB BLOOD ORDER ELANA Final Result [facility] [place] [address] * (ABNORMAL) eGFR (09/28/2024 7:43 AM CDT) [...] LAB BLOOD ORDER ELANA Final Result [facility] Department [place] [address] * (ABNORMAL) Differential, auto (09/28/2024 7:43 AM CDT) Neutrophil abs 5.12 1.50 - 6.50 K/cumm Comment:Testing performed by : [facility], [address] [place] [phone] Lymphocyte abs 0.72(L) 0.80 - 3.30 K/cumm MT SUAREZ Comment:Testing performed by : [facility], [address] [place] [phone] Monocyte abs 0.50 0.20 - 0.80 K/cumm MT SUAREZ Comment:Testing performed by : [facility], [address] [place] [phone] Eosinophil abs 0.15 0.00 - 0.50 K/cumm C[facility]ER [facility] Comment:Testing performed by : [facility], [address] [place] [phone] Basophil abs 0.04 0.00 - 0.10 K/cumm [facility] Comment:Testing performed by : [facility], [address] [place] [phone] Neutrophil pct 78.4 % [facility] Comment: Interpretive Data Percent cell count reference ranges are not reported, since discordance with absolute values may lead to misinterpretation of CBC data. Current Interpretive Data was last revised on 2017. Testing performed by: [facility], [address] [place] [phone] Lymphocyte pct 11.0 % CERNER [facility] Comment: Interpretive Data Percent cell count reference ranges are not reported, since discordance with absolute values may lead to misinterpretation of CBC data. Current Interpretive Data was last revised on 2017. Testing performed by: [facility], [address] [place] [phone] Monocyte pct 7.7 % CERNER [facility] Comment: Interpretive Data Percent cell count reference ranges are not reported, since discordance with absolute values may lead to misinterpretation of CBC data. Current Interpretive Data was last revised on 2017. Testing performed by: [facility], [address] [place] [phone] Eosinophil pct 2.3 % [facility] Comment: Interpretive Data Percent cell count reference ranges are not reported, since discordance with absolute values may lead to misinterpretation of CBC data. Current Interpretive Data was last revised on 2017. Testing performed by: [facility], [address] [place] [phone] Basophil pct 0.7 % C[facility]ER [facility] Comment: Interpretive Data Percent cell count reference ranges are not reported, since discordance with absolute values may lead to misinterpretation of CBC data. Current Interpretive Data was last revised on 2017. Testing performed by: [facility], [address] [place] [phone] Blood 09/28/2024 7:43 AM CDT 09/28/2024 8:00 AM CDT Hermelindo Butler MD LAB BLOOD ORDER ELANA Final Result MT [facility] Department [place] [address] * (ABNORMAL) Immunoglobulin free light chains (09/28/2024 7:43 AM CDT) Pathologist [facility] Caraway/Lambda ratio [facility] See Comment 0.26 - 1.65 Comment: Unable to calculate exact result. Interpretive Data The Binding Site FreeLite assay procedure was used. Results from different manufacturers or methods may not be comparable. Serial testing should be performed using the same methods and instrumentation. Current Interpretive Data was last revised on 2023. Caraway free light chain [facility] <0.06(L) 0.33 - 1.94 mg/dL [facility] Comment: Interpretive Data The Binding Site FreeLite assay procedure was used. Results from different manufacturers or methods may not be comparable. Serial testing should be performed using the same methods and instrumentation. Current Interpretive Data was last revised on 2023. Lambda free light chain BJH <0.14(L) 0.57 - 2.63 mg/dL [facility] Comment: Interpretive Data The Binding Site FreeLite assay procedure was used. Results from different manufacturers or methods may not be comparable. Serial testing should be performed using the same methods and instrumentation. Current Interpretive Data was last revised on 2023. Blood 09/28/2024 7:43 AM CDT 09/28/2024 9:50 AM CDT us Hermelindo Butler MD LAB BLOOD ORDER ELNAA Final Result [facility] Department [place] [address] * (ABNORMAL) CBC with auto differential (09/28/2024 7:43 AM CDT) [facility] WBC 6.53 3.80 - 9.90 K/cumm Comment:Testing performed by : [facility], [address] [place], [place] [id number] Hgb 11.5(L) 13.0 - 17.5 g/dL [facility] Comment:Testing performed by : [facility], [address] [place], [place] [id number] Hct 34.4(L) 38.9 - 50.3 % [facility] Comment:Testing performed by : [facility], [address] [place], [place] [id number] Plt 229 150 - 400 K/cumm [facility] Comment:Testing performed by : [facility], [address] [place], [place] [id number] MPV 7.0 6.8 - 10.4 fL [facility] Comment:Testing performed by : [facility], [address] [place], [place] [id number] RBC 3.61(L) 4.30 - 5.80 M/cumm [facility] Comment:Testing performed by : [facility], [address] [place], [place] [id number] MCV 95.2 81.3 - 96.4 fL [facility] Comment:Testing performed by : [facility], [address] [place], [place] [id number] MCH 31.7 27.1 - 33.3 pg [facility] Comment:Testing performed by : [facility], [address] [place] [address] MCHC 33.3 32.3 - 35.7 g/dL [facility] Comment:Testing performed by : [facility], [address] [place], [place] [id number] RDW CV 15.6(H) 11.1 - 14.9 % [facility] Comment:Testing performed by : [facility], [address] [place] [address] NRBC abs 0.00 0.00 - 0.01 K/cumm [facility] Comment:Testing performed by : [facility], [address] [place] [id number] Blood 09/28/2024 7:43 AM CDT 09/28/2024 8:00 AM CDT Hermelindo Butler MD LAB BLOOD ORDER ELANA Final Result Performing Organization Address [facility] de Phone Number [facility] Department [place] [address] * aPTT (09/28/2024 7:43 AM CDT) aPTT [...] Final Result Performing Organization Address [facility] de Phone Number [facility] [place] [address] * Protime-INR (09/28/2024 7:43 AM CDT) PT 11.9 9.7 - 13.0 sec INR 1.10 0.90 - 1.20 [facility] Comment: Interpretive data Oral anticoagulant therapeutic ranges: Venous thromboembolism prophylaxis or treatment: 2.0-3.0 CARDIOLOGY Standard range: 2.0-3.0 High-intensity range: 2.5-3.5 Refer to indication-specific guidelines for appropriate target ranges for prosthetic heart valve replacement. Current interpretive data was last revised on 2019. Blood 09/28/2024 7:43 AM CDT 09/28/2024 8:16 AM CDT Hermelindo Butler MD LAB BLOOD ORDER ELANA Final Result [facility] Department [place] [address] * (ABNORMAL) Protein electrophoresis with reflex, serum with interpretation (09/28/2024 7:43 AM CDT) Pathologist [facility] Protein, sr 5.6(L) 6.2 - 8.2 g/dL Albumin 3.7 3.2 - 5.0 g/dL [facility] Alpha-1 globulin 0.4 0.2 - 0.4 g/dL [facility] Alpha-2 globulin 0.8 0.5 - 1.0 g/dL [facility] Beta-1 globulin 0.4 0.3 - 0.6 g/dL [facility] Beta-2 globulin 0.2 0.2 - 0.6 g/dL [facility] Gamma globulin 0.1(L) 0.5 - 1.7 g/dL [facility] SPEP interp Please see comment [facility] Comment: No apparent monoclonal peak Decreased gamma globulins Electrophoretic pattern appears similar to previous sample 09-01-24 See immunotyping for further information Reviewed and signed by Ivan Sims MD, PhD 09/29/2024 Blood 09/28/2024 7:43 AM CDT 09/28/2024 9:50 AM CDT Hermelindo Butler MD LAB BLOOD ORDER ELANA Final Result Performing Organization Address City/[facility]/ZIP Co de Phone Number [facility] Department [place] [address] * Magnesium (09/28/2024 7:43 AM CDT) Pathologist [facility] Magnesium 2.2 1.4 - 2.5 mg/dL Blood 09/28/2024 7:43 AM CDT 09/28/2024 8:03 AM CDT Hermelindo Butler MD LAB BLOOD ORDER ELANA Final Result Performing Organization Address [facility] de Phone Number [facility] [place] [address] * Lactate dehydrogenase (LD) (09/28/2024 7:43 AM CDT) Lactate dehydrogenase (LDH) 132 100 - 250 Units/L Blood 09/28/2024 7:43 AM CDT 09/28/2024 8:03 AM CDT us Hermelindo Butler MD LAB BLOOD ORDER ELANA Final Result Performing Organization Address [facility] Phone Number [facility] [place] [address] * Gamma GT (09/28/2024 7:43 AM CDT) GGT 28 10 - 50 Units/L Blood 09/28/2024 7:43 AM CDT 09/28/2024 8:03 AM CDT us Hermelindo Butler MD LAB BLOOD ORDER ELANA Final Result Performing Organization Address [facility] de Phone Number [facility] [place] [address] * (ABNORMAL) IgA (09/28/2024 7:43 AM CDT) Immunoglobulin A <50(L) 70 - 400 mg/dL Blood 09/28/2024 7:43 AM CDT 09/28/2024 8:24 AM CDT Hermelindo Butler MD LAB BLOOD ORDER ELANA Final Result Performing Organization Address City/[facility]/ZIP Co de Phone Number [facility] Department [place] [address] * (ABNORMAL) IgM (09/28/2024 7:43 AM CDT) [facility] Immunoglobulin M <25(L) 40 - 230 mg/dL Blood 09/28/2024 7:43 AM CDT 09/28/2024 8:24 AM CDT Hermelindo Butler MD LAB BLOOD ORDER ELANA Final Result Performing Organization Address City/[facility]/ZIP Co de Phone Number [facility] Department [place] [address] * (ABNORMAL) IgG (09/28/2024 7:43 AM CDT) [facility] Immunoglobulin G <300(L) 700 - 1,600 mg/dL Blood 09/28/2024 7:43 AM CDT 09/28/2024 8:24 AM CDT Hermelindo Butler MD LAB BLOOD ORDER ELANA Final Result Performing Organization Address City/[facility] Co de Phone Number [facility] Department [place] [address] * (ABNORMAL) Comprehensive metabolic panel (09/28/2024 7:43 AM CDT) [facility] Sodium 143 135 - 145 mmol/L Potassium, pl 4.1 3.3 - 4.9 mmol/L [facility] Chloride 106 97 - 110 mmol/L [facility] CO2 27 22 - 32 mmol/L [facility] Anion gap 10 2 - 15 mmol/L [facility] BUN 30(H) 6 - 25 mg/dL [facility] Creatinine 1.80(H) 0.80 - 1.30 mg/dL [facility] Glucose 106 70 - 199 mg/dL [facility] Comment: Interpretive Data Fasting glucose [...] 2022. Calcium 9.6 8.5 - 10.3 mg/dL [facility] Bilirubin, total 0.5 0.1 - 1.2 mg/dL [facility] Protein, pl 6.2(L) 6.5 - 8.5 g/dL [facility] Albumin 3.9 3.5 - 5.0 g/dL [facility] Alk phos 62 40 - 130 Units/L [facility] ALT 12 7 - 55 Units/L [facility] AST 13 10 - 50 Units/L [facility] Blood 09/28/2024 7:43 AM CDT 09/28/2024 8:02 AM CDT Hermelindo Butler MD LAB BLOOD ORDER ELANA Final Result [facility] Department [place] [address] * (ABNORMAL) Comprehensive metabolic panel (09/28/2024 7:43 AM CDT) [facility] Sodium 143 135 - 145 mmol/L Potassium, pl 4.1 3.3 - 4.9 mmol/L [facility] Chloride 106 97 - 110 mmol/L [facility] CO2 27 22 - 32 mmol/L [facility] Anion gap 10 2 - 15 mmol/L [facility] BUN 31(H) 6 - 25 mg/dL [facility] Creatinine 1.80(H) 0.80 - 1.30 mg/dL [facility] Glucose 105 70 - 199 mg/dL [facility] Comment: Interpretive Data Fasting glucose [...] Calcium 9.6 8.5 - 10.3 mg/dL [facility] Bilirubin, total 0.5 0.1 - 1.2 mg/dL [facility] Protein, pl 6.1(L) 6.5 - 8.5 g/dL [facility] Albumin 4.0 3.5 - 5.0 g/dL [facility] Alk phos 61 40 - 130 Units/L [facility] ALT 13 7 - 55 Units/L [facility] AST 13 10 - 50 Units/L [facility] Blood 09/28/2024 7:43 AM CDT 09/28/2024 8:03 AM CDT Hermelindo Butler MD LAB BLOOD ORDER ELANA Final Result [facility] Department [place] [address] * MI INSJ NON-TUNNELED CENTRAL VENOUS CATH AGE 7 YR/> (09/15/2024 1:20 PM CDT) Narrative Lianna Denny PA - 09/15/2024 1:20 PM CDT Lianna Denny PA 09/15/2024 1:40 PM Midline Insertion Date/Time: 09/15/2024 1:20 PM Performed by: Lianna Denny PA Authorized by: Lianna Denny PA [place] Protocol: RN Notified of Procedure: yes Informed consent: Risks, benefits, alternatives discussed and patient/rental representative/guardian agrees and accepts Patient's stated name/ [...] Santana MD LAB BLOOD ORDERABLES Final Result [facility] [address] Department [place] [address] * (ABNORMAL) CBC without differential (09/15/2024 3:52 AM CDT) WBC 6.46 3.80 - 9.90 K/cumm Hgb 10.1(L) 13.0 - 17.5 g/dL [facility] Hct 31.4(L) 38.9 - 50.3 % [facility] Plt 149(L) 150 - 400 K/cumm [facility] MPV 9.2 9.1 - 12.3 fL [facility] RBC 3.20(L) 4.30 - 5.80 M/cumm [facility] MCV 98.1(H) 81.3 - 96.4 fL [facility] MCH 31.6 27.1 - 33.3 pg [facility] MCHC 32.2(L) 32.3 - 35.7 g/dL [facility] RDW CV 14.9 11.1 - 14.9 % [facility] RDW SD 54.3(H) 35.7 - 48.1 fL [facility] NRBC abs 0.00 0.00 - 0.01 K/cumm [facility] Blood 09/15/2024 3:52 AM CDT 09/15/2024 4:02 AM CDT Emory Santana MD LAB BLOOD ORDERABLES Final Result [facility] [address] Department [place] [address] * (ABNORMAL) Basic metabolic panel (09/15/2024 3:52 AM CDT) Pathologist [facility] Sodium 143 135 - 145 mmol/L Potassium, pl 3.2(L) 3.3 - 4.9 mmol/L [facility] Chloride 105 97 - 110 mmol/L [facility] CO2 28 22 - 32 mmol/L [facility] Anion gap 10 2 - 15 mmol/L [facility] BUN 12 6 - 25 mg/dL [facility] Creatinine 1.45(H) 0.80 - 1.30 mg/dL [facility] Glucose 110 70 - 199 mg/dL [facility] Comment: Interpretive Data Fasting glucose >/= [...] 2022. Calcium 8.2(L) 8.5 - 10.3 mg/dL [facility] Blood 09/15/2024 3:52 AM CDT 09/15/2024 4:02 AM CDT us Emory Santana MD LAB BLOOD ORDERABLES Final Result Performing Organization Address City/[facility]/ZIP Co de Phone Number [facility] [address] Department [place] [address] * (ABNORMAL) eGFR (09/14/2024 2:25 AM CDT) [facility] eGFR 48(L) >=60 mL/min/1. 73 [...] Santana MD LAB BLOOD ORDERABLES Final Result [facility] [address] Department [place] [address] * (ABNORMAL) CBC without differential (09/14/2024 2:25 AM CDT) WBC 5.62 3.80 - 9.90 K/cumm Hgb 10.0(L) 13.0 - 17.5 g/dL [facility] Hct 31.1(L) 38.9 - 50.3 % [facility] Plt 163 150 - 400 K/cumm [facility] MPV 9.3 9.1 - 12.3 fL [facility] RBC 3.15(L) 4.30 - 5.80 M/cumm [facility] MCV 98.7(H) 81.3 - 96.4 fL [facility] MCH 31.7 27.1 - 33.3 pg [facility] MCHC 32.2(L) 32.3 - 35.7 g/dL [facility] RDW CV 15.4(H) 11.1 - 14.9 % [facility] RDW SD 55.6(H) 35.7 - 48.1 fL [facility] NRBC abs 0.00 0.00 - 0.01 K/cumm [facility] Blood 09/14/2024 2:25 AM CDT 09/14/2024 2:44 AM CDT us Emory Santana MD LAB BLOOD ORDERABLES Final Result [facility] [address] Department [place] [address] * (ABNORMAL) Basic metabolic panel (09/14/2024 2:25 AM CDT) Sodium 146(H) 135 - 145 mmol/L Potassium, pl 3.3 3.3 - 4.9 mmol/L [facility] Chloride 108 97 - 110 mmol/L [facility] CO2 27 22 - 32 mmol/L [facility] Anion gap 11 2 - 15 mmol/L [facility] BUN 18 6 - 25 mg/dL [facility] Creatinine 1.53(H) 0.80 - 1.30 mg/dL [facility] Glucose 116 70 - 199 mg/dL [facility] Comment: Interpretive Data Fasting glucose >/= [...] 2022. Calcium 8.1(L) 8.5 - 10.3 mg/dL [facility] Blood 09/14/2024 2:25 AM CDT 09/14/2024 2:44 AM CDT us Emory Santana MD LAB BLOOD ORDERABLES Final Result Performing Organization Address [facility] Co de Phone Number [facility] [address] Department [employer] [place], [place] [id number] * (ABNORMAL) eGFR (09/13/2024 3:21 AM CDT) Pathologist [facility] eGFR 48(L) >=60 mL/min/1. 73 m2 Comment: [...] BLOOD ORDERABLES Final Result Performing Organization Address [facility]/ZIP Co de Phone Number [facility] [address] Department [place] [address] * (ABNORMAL) CBC without differential (09/13/2024 3:21 AM CDT) [facility] WBC 5.46 3.80 - 9.90 K/cumm Hgb 10.1(L) 13.0 - 17.5 g/dL [facility] Hct 30.8(L) 38.9 - 50.3 % [facility] Plt 160 150 - 400 K/cumm [facility] MPV 9.7 9.1 - 12.3 fL [facility] RBC 3.15(L) 4.30 - 5.80 M/cumm [facility] MCV 97.8(H) 81.3 - 96.4 fL [facility] MCH 32.1 27.1 - 33.3 pg [facility] MCHC 32.8 32.3 - 35.7 g/dL [facility] RDW CV 15.7(H) 11.1 - 14.9 % [facility] RDW SD 56.4(H) 35.7 - 48.1 fL [facility] NRBC abs 0.00 0.00 - 0.01 K/cumm [facility] Blood 09/13/2024 3:21 AM CDT 09/13/2024 3:48 AM CDT us Emory Santana MD LAB BLOOD ORDERABLES Final Result [facility] [address] Department [place] [address] * (ABNORMAL) Basic metabolic panel (09/13/2024 3:21 AM CDT) Sodium 141 135 - 145 mmol/L Potassium, pl 3.3 3.3 - 4.9 mmol/L [facility] Chloride 105 97 - 110 mmol/L [facility] CO2 24 22 - 32 mmol/L [facility] Anion gap 12 2 - 15 mmol/L [facility] BUN 24 6 - 25 mg/dL [facility] Creatinine 1.55(H) 0.80 - 1.30 mg/dL [facility] Glucose 115 70 - 199 mg/dL [facility] Comment: Interpretive Data Fasting glucose >/= [...] 2022. Calcium 8.1(L) 8.5 - 10.3 mg/dL [facility] Blood 09/13/2024 3:21 AM CDT 09/13/2024 3:48 AM CDT us Emory Santana MD LAB BLOOD ORDERABLES Final Result [facility] [address] Department [place] [address] * TRANSTHORACIC ECHO (TTE) COMPLETE W DOPPLER/CF WO CONTRAST (09/12/2024 2:39 PM CDT) LV EF 55-60 % CONS SCIMAGE Anatomical Region Laterality Modality Ultrasound 09/12/2024 12:1 1 PM CDT Narrative 09/12/2024 2:42 PM CDT [facility] [address] [place] [address] ECHOCARDIOGRAM Patient Name: BUFFY VALLECarl : 1950 (73y 9m) Gender: M Study Date: 09/12/2024 12:11:05 PM Ht(Inch): 69 Wt(Lb): 275.57 BSA: 2.47 Cab Driver: JIM Location: [id number] Order Provider: ANUP SIN BMI: 40.69 BP: [...] Procedure Note Choco Thomas MD - 09/12/2024 [address] [place] [address] ECHOCARDIOGRAM Patient Name: BUFFY VALLECarl : 1950 (73y 9m) Gender: M Study Date: 09/12/2024 12:11:05 PM Ht(Inch): 69 Wt(Lb): 275.57 BSA: 2.47 Cab Driver: JIM Location: [id number] Order Provider: ANUP SIN BMI: 40.69 BP: [...] Choco Thomas MD 09/12/2024 2:41:52 PM CDT [facility] Hermelindo Sin MD CV ECHO PROCEDURES Fi nal [...] Santana MD LAB BLOOD ORDERABLES Final Result [facility] [address] Department of Laboratories [place], [place] [id number] * (ABNORMAL) CBC without differential (09/12/2024 3:14 AM CDT) WBC 7.12 3.80 - 9.90 K/cumm Hgb 10.3(L) 13.0 - 17.5 g/dL [facility] Hct 31.8(L) 38.9 - 50.3 % [facility] Plt 150 150 - 400 K/cumm [facility] MPV 9.5 9.1 - 12.3 fL [facility] RBC 3.23(L) 4.30 - 5.80 M/cumm [facility] MCV 98.5(H) 81.3 - 96.4 fL [facility] MCH 31.9 27.1 - 33.3 pg [facility] MCHC 32.4 32.3 - 35.7 g/dL [facility] RDW CV 15.9(H) 11.1 - 14.9 % [facility] RDW SD 57.1(H) 35.7 - 48.1 fL [facility] NRBC abs 0.00 0.00 - 0.01 K/cumm [facility] Blood 09/12/2024 3:14 AM CDT 09/12/2024 3:35 AM CDT Emory Santana MD LAB BLOOD ORDERABLES Final Result [facility] [address] [place] [address] * (ABNORMAL) Basic metabolic panel (09/12/2024 3:14 AM CDT) [facility] Sodium 139 135 - 145 mmol/L Potassium, pl 3.3 3.3 - 4.9 mmol/L [facility] Chloride 101 97 - 110 mmol/L [facility] CO2 23 22 - 32 mmol/L [facility] Anion gap 15 2 - 15 mmol/L [facility] BUN 31(H) 6 - 25 mg/dL [facility] Creatinine 1.96(H) 0.80 - 1.30 mg/dL [facility] Glucose 114 70 - 199 mg/dL [facility] Comment: Interpretive Data Fasting glucose >/= [...] 2022. Calcium 8.4(L) 8.5 - 10.3 mg/dL [facility] Blood 09/12/2024 3:14 AM CDT 09/12/2024 3:34 AM CDT us Emory Santana MD LAB BLOOD ORDERABLES Final Result Performing Organization Address [facility]/ZIP Co de Phone Number [facility] [address] [place] [address] * (ABNORMAL) eGFR (09/11/2024 4:59 AM CDT) [...] [address] Department [place] [address] * Blood culture Blood (09/11/2024 4:59 AM CDT) Report Final Report: No growth Blood 09/11/2024 4:59 AM CDT 09/11/2024 5:09 AM CDT Narrative MT BALDERAS - 09/16/2024 7:01 AM CDT From a [...] organism identification may be performed using the [employer] Quote[employer] Blood Culture Identification panel. This assay detects microbial DNA in a blood culture broth. This assay has been cleared by the [facility] Food and Drug Administration and its performance characteristics have been verified by the [facility]. Interpretive data was last revised on July 11, 2022. Emory Santana MD LAB MICROBIOLOGY - GENERAL ORDERABLES Final Result Performing Organization Address [facility] Co de Phone Number [facility] [address] [place] [address] * Blood culture Blood (09/11/2024 4:59 AM CDT) Report Final Report: No growth Blood 09/11/2024 4:59 AM CDT 09/11/2024 5:09 AM CDT Narrative [facility] - 09/16/2024 7:01 [...] organism identification may be performed using the [employer] Blood Culture Identification panel. This assay detects microbial DNA in a blood culture broth. This assay has been cleared by the [place] Food and Drug Administration and its performance characteristics have been verified by the [facility]. Interpretive data was last revised on July 11, 2022. Emory Santana MD LAB MICROBIOLOGY - GENERAL ORDERABLES Final Result Performing Organization Address City/[facility] Co de Phone Number [facility] [address] Department [employer] [place], [place] [id number] * (ABNORMAL) CBC without differential (09/11/2024 4:59 AM CDT) WBC 11.33(H) 3.80 - 9.90 K/cumm Hgb 10.8(L) 13.0 - 17.5 g/dL [facility] Hct 33.2(L) 38.9 - 50.3 % [facility] [facility] Plt 138(L) 150 - 400 K/cumm [facility] MPV 9.5 9.1 - 12.3 fL [facility] RBC 3.37(L) 4.30 - 5.80 M/cumm [facility] MCV 98.5(H) 81.3 - 96.4 fL [facility] MCH 32.0 27.1 - 33.3 pg [facility] MCHC 32.5 32.3 - 35.7 g/dL [facility] RDW CV 15.9(H) 11.1 - 14.9 % [facility] RDW SD 57.7(H) 35.7 - 48.1 fL [facility] NRBC abs 0.00 0.00 - 0.01 K/cumm [facility] Blood 09/11/2024 4:59 AM CDT 09/11/2024 5:08 AM CDT us Emory Santana MD LAB BLOOD ORDERABLES Final Result [facility] [address] Department [place] [address] * (ABNORMAL) Basic metabolic panel (09/11/2024 4:59 AM CDT) Sodium 139 135 - 145 mmol/L Potassium, pl 3.7 3.3 - 4.9 mmol/L [facility] Chloride 102 97 - 110 mmol/L [facility] CO2 23 22 - 32 mmol/L [facility] Anion gap 14 2 - 15 mmol/L [facility] BUN 39(H) 6 - 25 mg/dL [facility] Creatinine 2.45(H) 0.80 - 1.30 mg/dL [facility] Glucose 131 70 - 199 mg/dL [facility] Comment: Interpretive Data Fasting glucose >/= [...] 2022. Calcium 8.8 8.5 - 10.3 mg/dL [facility] Blood 09/11/2024 4:59 AM CDT 09/11/2024 5:07 AM CDT us Emory Santana MD LAB BLOOD ORDERABLES Final Result [facility] [address] Department [place] [address] * (ABNORMAL) Urinalysis reflex to microscopic and culture Urine, indwelling catheter (09/11/2024 4:07AM CDT) Color, ur Yellow Yellow Clarity, ur Clear Clear [facility] Specific gravity, ur 1.013 1.003 - 1.030 [facility] pH, urine 5.5 [facility] Comment: Interpretive Data U rine pH is affected by diet, medications, systemic acid-base disturbances, and renal tubular function. pH may affect urinary stone formation. For example, urine pH below 6.0 may help reduce the tendency for calcium phosphate stones and pH greater than 6.0 may reduce the tendency for uric acid stone formation. Source: [facility] Current Interpretive Data was last revised on 2017 Protein, ur ql Trace Negative [facility] Glucose, ur ql Negative Negative [facility] Ketones, ur Negative Negative [facility] Bilirubin, ur Negative Negative [facility] Blood, ur 1+(A) Negative [facility] Urobilinogen, ur <2.0 <2.0 mg/dL [facility] Nitrite, ur Negative Negative [facility] Leukocyte esterase, ur 2+(A) Negative [facility] UA reflex comment Reflex to microscopic UA will be performed. [facility] Urine, indwelling catheter 09/11/2024 4:07 AM CDT 09/11/2024 4:07 AM CDT us Emory Santana MD LAB MICROBIOLOGY - GENERAL ORDERABLES Final Result Performing Organization Address [facility] Co de Phone Number [facility] [address] [place] [address] * (ABNORMAL) Urinalysis, microscopic only (09/11/2024 4:07 AM CDT) WBC, ur 11-20(A) 0 - 5 /HPF RBC, ur 3-5(A) 0 - 2 /HPF [facility] Culture Reflex Comment Reflex to urine culture will be performed. [facility] Urine, indwelling catheter 09/11/2024 4:07 AM CDT 09/11/2024 4:14 AM CDT us Emory Santana MD LAB URINE ORDERABLES Final Result Performing Organization Address [facility] de Phone Number [facility] [address] [place] [address] * (ABNORMAL) Urine culture Urine, indwelling catheter (09/11/2024 4:07 AM CDT) Report Final Report: Less than 10,000 colonies/ml of Gram Positive Organism No further workup. (.) Organism GRAM POSITIVE ORGANISM [facility] Urine, indwelling catheter 09/11/2024 4:07 AM CDT 09/11/2024 6:47 AM CDT Narrative [facility] - 09/13/2024 7:16 AM CDT Urine culture reflexed based upon urinalysis results. us Emory Santana MD LAB MICROBIOLOGY - GENERAL ORDERABLES Final Result Performing Organization Address [facility] Co de Phone Number [facility] [address] [place] [address] * (ABNORMAL) eGFR (09/11/2024 2:32 AM CDT) Pathologist [facility] eGFR 29(L) >=60 mL/min/1. 73 m2 Comment: [...] Santana MD LAB BLOOD ORDERABLES Final Result [facility] [address] Department [place] [address] * (ABNORMAL) Differential, auto (09/11/2024 2:32 AM CDT) [facility] Neutrophil abs 12.22(H) 1.50 - 6.50 K/cumm Imm gran abs 0.10 0.00 - 0.10 K/cumm [facility] Lymphocyte abs 0.79(L) 0.80 - 3.30 K/cumm [facility] Monocyte abs 1.12(H) 0.20 - 0.80 K/cumm [facility] Eosinophil abs 0.00 0.00 - 0.50 K/cumm [facility] Basophil abs 0.03 0.00 - 0.10 K/cumm [facility] Neutrophil pct 85.7 % [facility] Comment: Interpretive Data Percent cell count reference ranges are not reported, since discordance with absolute values may lead to misinterpretation of CBC data. Current Interpretive Data was last revised on 2017. Imm gran pct 0.7 % [facility] Comment: Interpretive Data Percent cell count reference ranges are not reported, since discordance with absolute values may lead to misinterpretation of CBC data. Current Interpretive Data was last revised on 2017. Lymphocyte pct 5.5 % [facility] Comment: Interpretive Data Percent cell count reference ranges are not reported, since discordance with absolute values may lead to misinterpretation of CBC data. Current Interpretive Data was last revised on 2017. Monocyte pct 7.9 % [facility] Comment: Interpretive Data Percent cell count reference ranges are not reported, since discordance with absolute values may lead to misinterpretation of CBC data. Current Interpretive Data was last revised on 2017. Eosinophil pct 0.0 % [facility] Comment: Interpretive Data Percent cell count reference ranges are not reported, since discordance with absolute values may lead to misinterpretation of CBC data. Current Interpretive Data was last revised on 2017. Basophil pct 0.2 % [facility] Comment: Interpretive Data Percent cell count reference ranges are not reported, since discordance with absolute values may lead to misinterpretation of CBC data. Current Interpretive Data was last revised on 2017. Blood 09/11/2024 2:32 AM CDT 09/11/2024 2:46 AM CDT us Emory Santana MD LAB BLOOD ORDERABLES Final Result [facility] [address] Department [place] [address] * (ABNORMAL) CBC with auto differential (09/11/2024 2:32 AM CDT) WBC 14.26(H) 3.80 - 9.90 K/cumm Hgb 11.6(L) 13.0 - 17.5 g/dL [facility] Hct 34.8(L) 38.9 - 50.3 % [facility] Plt 171 150 - 400 K/cumm [facility] MPV 9.8 9.1 - 12.3 fL [facility] RBC 3.59(L) 4.30 - 5.80 M/cumm [facility] MCV 96.9(H) 81.3 - 96.4 fL [facility] MCH 32.3 27.1 - 33.3 pg [facility] MCHC 33.3 32.3 - 35.7 g/dL [facility] RDW CV 16.1(H) 11.1 - 14.9 % [facility] RDW SD 57.1(H) 35.7 - 48.1 fL [facility] NRBC abs 0.00 0.00 - 0.01 K/cumm [facility] Blood 09/11/2024 2:32 AM CDT 09/11/2024 2:46 AM CDT Emory Santana MD LAB BLOOD ORDERABLES Final Result Performing Organization Address [facility] Co de Phone Number [facility] [address] [place] [address] * aPTT (09/11/2024 2:32 AM CDT) [facility] aPTT 32 28 - 38 sec Comment: Interpretive Data Heparin therapeutic range: 66.0 - 100.0 seconds. Range based on correlation with therapeutic heparin activity range of 0.3 - 0.7 Units/mL. Current interpretive data was last revised on 2023. Blood 09/11/2024 2:32 AM CDT 09/11/2024 2:46 AM CDT Emory Santana MD LAB BLOOD ORDERABLES Final Result Performing Organization Address [facility] Co de Phone Number [facility] [address] Department [place] [address] * (ABNORMAL) Protime-INR (09/11/2024 2:32 AM CDT) [facility] PT 16.4(H) 9.7 - 13.0 sec INR 1.51(H) 0.90 - 1.20 [facility] Comment: Interpretive data Oral anticoagulant therapeutic ranges: Venous thromboembolism prophylaxis or treatment: 2.0-3.0 CARDIOLOGY Standard range: 2.0-3.0 High-intensity range: 2.5-3.5 Refer to indication-specific guidelines for appropriate target ranges for prosthetic heart valve replacement. Current interpretive data was last revised on 2019. Blood 09/11/2024 2:32 AM CDT 09/11/2024 2:46 AM CDT us Emory Santana MD LAB BLOOD ORDERABLES Final Result Performing Organization Address [facility] Co de Phone Number [facility] [address] [place] [address] * Vancomycin level random (09/11/2024 2:32 AM CDT) [facility] Vancomycin random <4.0 mcg/mL Comment: Interpretive Data No reference ranges have been established for random drug levels. Current Interpretive Data was last revised on 2020. Blood 09/11/2024 2:32 AM CDT 09/11/2024 2:46 AM CDT us Emory Santana MD LAB BLOOD ORDERABLES Final Result Performing Organization Address City/[facility]/ZIP Co de Phone Number [facility] [address] [employer] [place], [place] [id number] * (ABNORMAL) Comprehensive metabolic panel (09/11/2024 2:32 AM CDT) [facility] Sodium 140 135 - 145 mmol/L Potassium, pl 3.7 3.3 - 4.9 mmol/L [facility] Chloride 103 97 - 110 mmol/L [facility] CO2 22 22 - 32 mmol/L [facility] Anion gap 15 2 - 15 mmol/L [facility] BUN 35(H) 6 - 25 mg/dL [facility] Creatinine 2.36(H) 0.80 - 1.30 mg/dL [facility] Glucose 128 70 - 199 mg/dL [facility] Comment: Interpretive Data Fasting glucose >/= [...] 2022. Calcium 8.7 8.5 - 10.3 mg/dL [facility] Bilirubin, total 1.0 0.1 - 1.2 mg/dL [facility] Protein, pl 6.2(L) 6.5 - 8.5 g/dL [facility] Albumin 3.8 3.5 - 5.0 g/dL [facility] Alk phos 63 40 - 130 Units/L [facility] ALT 13 7 - 55 Units/L [facility] AST 15 10 - 50 Units/L [facility] Blood 09/11/2024 2:32 AM CDT 09/11/2024 2:46 AM CDT us Emory Santana MD LAB BLOOD ORDERABLES Final Result [facility] [address] Department [place] [address] * Differential, auto (08/31/2024 8:12 AM CDT) Neutrophil abs 6.0 1.5 - 6.5 K/cumm Comment:Testing performed by : [facility], [address] [place] [phone] Lymphocyte abs 1.0 0.8 - 3.3 K/cumm [facility] Comment:Testing performed by : [facility], [address] [place] [phone] Monocyte abs 0.6 0.2 - 0.8 K/cumm [facility] Comment:Testing performed by : [facility], [address] [place] [phone] Eosinophil abs 0.3 0.0 - 0.5 K/cumm [facility] Comment:Testing performed by : [facility], [address] [place] [phone] Basophil abs 0.1 0.0 - 0.1 K/cumm [facility] Comment:Testing performed by : [facility], [address] [place] [phone] Neutrophil pct 75.2 % [facility] Comment: Interpretive Data Percent cell count reference ranges are not reported, since discordance with absolute values may lead to misinterpretation of CBC data. Current Interpretive Data was last revised on 2017. Testing performed by: [facility], [address] [place] [phone] Lymphocyte pct 12.4 % [facility] Comment: Interpretive Data Percent cell count reference ranges are not reported, since discordance with absolute values may lead to misinterpretation of CBC data. Current Interpretive Data was last revised on 2017. Testing performed by: [facility], [address] [place] [phone] Monocyte pct 7.9 % [facility] Comment: Interpretive Data Percent cell count reference ranges are not reported, since discordance with absolute values may lead to misinterpretation of CBC data. Current Interpretive Data was last revised on 2017. Testing performed by: [facility], [address] [place] [phone] Eosinophil pct 3.9 % [facility] Comment: Interpretive Data Percent cell count reference ranges are not reported, since discordance with absolute values may lead to misinterpretation of CBC data. Current Interpretive Data was last revised on 2017. Testing performed by: [facility], [address] [place] [phone] Basophil pct 0.6 % [facility] Comment: Interpretive Data Percent cell count reference ranges are not reported, since discordance with absolute values may lead to misinterpretation of CBC data. Current Interpretive Data was last revised on 2017. Testing performed by: [facility], [address] [place] [address] Blood 08/31/2024 8:12 AM CDT 08/31/2024 8:16 AM CDT Hermelindo Butler MD LAB BLOOD ORDER ELANA Final Result [facility] Department [place] [address] * (ABNORMAL) CBC with auto differential (08/31/2024 8:12 AM CDT) WBC 8.0 3.8 - 9.9 K/cumm Comment:Testing performed by : [facility], [address] [place] [address] Hgb 12.7(L) 13.0 - 17.5 g/dL [facility] Comment:Testing performed by : [facility], [address] [place] [address] Hct 37.8(L) 38.9 - 50.3 % [facility] Comment:Testing performed by : [facility], [address] [place] [address] Plt 176 150 - 400 K/cumm [facility] Comment:Testing performed by : [facility], [address] [place] [address] MPV 7.7 6.8 - 10.4 fL [facility] Comment:Testing performed by : [facility], [address] [place] [address] RBC 4.07(L) 4.30 - 5.80 M/cumm [facility] Comment:Testing performed by : [facility], [address] [place] [address] MCV 92.8 81.3 - 96.4 fL [facility] Comment:Testing performed by : [facility], [address] [place], [place] [phone] MCH 31.2 27.1 - 33.3 pg [facility] Comment:Testing performed by : [facility], [address] [place] [phone] MCHC 33.6 32.3 - 35.7 g/dL [facility] Comment:Testing performed by : [facility], [address] [place], [place] [phone] RDW CV 16.1(H) 11.1 - 14.9 % [facility] Comment:Testing performed by : [facility], [address] [place], [place] [phone] NRBC abs 0.00 0.00 - 0.01 K/cumm [facility] Comment:Testing performed by : [facility], [address] [place], [place] [phone] Blood 08/31/2024 8:12 AM CDT 08/31/2024 8:16 AM CDT Hermelindo Butler MD LAB BLOOD ORDER ELANA Final Result Performing Organization Address City/[facility] Co de Phone Number [facility] Department [place] [address] * Type and screen (08/31/2024 8:12 AM CDT) ABO Rh A Positive Yehuda, indirect Negative [facility] Comment:Patient has previous antibody history Blood 08/31/2024 8:12 AM CDT 08/31/2024 8:25 AM CDT Narrative [facility] - 08/31/2024 9:28 AM CDT Has the patient had Daratumumab or Isatuximab in the past 6 months?->Unknown us Hermelindo Butler MD LAB BLOOD BANK TEST ORDERABLES Final Result Performing Organization Address City/State/[facility] Co de Phone Number [facility] Department [place] [address] * Immunotyping, serum with interpretation (08/31/2024 8:12 AM CDT) Pathologist [facility] Immunosubtraction Please see comment Comment: NO PARAPROTEIN DETECTED Reviewed and signed by Ivan Sims MD, PhD 09/01/2024 Blood 08/31/2024 8:12 AM CDT 08/31/2024 9:34 AM CDT Hermelindo Butler MD LAB BLOOD ORDER ELANA Final Result [facility] Department [place] [address] * (ABNORMAL) eGFR (08/31/2024 8:12 AM CDT) Pathologist [facility] eGFR 45(L) >=60 mL/min/1. 73 m2 Comment: [...] ORDER ELANA Final Result [facility] Department [place] [address] * (ABNORMAL) Immunoglobulin free light chains (08/31/2024 8:12 AM CDT) Caraway/Lambda ratio [facility] See Comment 0.26 - 1.65 Comment: Unable to calculate exact result. Interpretive Data The Binding Site FreeLite assay procedure was used. Results from different manufacturers or methods may not be comparable. Serial testing should be performed using the same methods and instrumentation. Current Interpretive Data was last revised on 2023. Caraway free light chain [facility] <0.06(L) 0.33 - 1.94 mg/dL [facility] Comment: Interpretive Data The Binding Site FreeLite assay procedure was used. Results from different manufacturers or methods may not be comparable. Serial testing should be performed using the same methods and instrumentation. Current Interpretive Data was last revised on 2023. Lambda free light chain [facility] <0.14(L) 0.57 - 2.63 mg/dL [facility] Comment: Interpretive Data The Binding Site FreeLite assay procedure was used. Results from different manufacturers or methods may not be comparable. Serial testing should be performed using the same methods and instrumentation. Current Interpretive Data was last revised on 2023. Blood 08/31/2024 8:12 AM CDT 08/31/2024 9:34 AM CDT Hermelindo Butler MD LAB BLOOD ORDER ELANA Final Result [facility] Department [place] [address] * (ABNORMAL) aPTT (08/31/2024 8:12 AM CDT) [...] Final Result Performing Organization Address [facility] de Phone Number [facility] Department [place] [address] * Protime-INR (08/31/2024 8:12 AM CDT) Pathologist [facility] PT 11.4 9.7 - 13.0 sec INR 1.05 0.90 - 1.20 [facility] Comment: Interpretive data Oral anticoagulant [...] Final Result Performing Organization Address [facility] de Phone Number [facility] Department [place] [address] * (ABNORMAL) Protein electrophoresis with reflex, serum with interpretation (08/31/2024 8:12 AM CDT) Pathologist [facility] Protein, sr 6.0(L) 6.2 - 8.2 g/dL Albumin 3.9 3.2 - 5.0 g/dL [facility] Alpha-1 globulin 0.4 0.2 - 0.4 g/dL [facility] Alpha-2 globulin 0.7 0.5 - 1.0 g/dL [facility] Beta-1 globulin 0.5 0.3 - 0.6 g/dL [facility] Beta-2 globulin 0.3 0.2 - 0.6 g/dL [facility] Gamma globulin 0.2(L) 0.5 - 1.7 g/dL [facility] SPEP interp Please see comment [facility] Comment: No apparent monoclonal peak Decreased gamma globulins Electrophoretic pattern appears similar to previous sample 08/24/2024 See immunotyping for further information Reviewed and signed by Ivan Sims MD, PhD 09/01/2024 Blood 08/31/2024 8:12 AM CDT 08/31/2024 9:34 AM CDT Hermelindo Butler MD LAB BLOOD ORDER ELANA Final Result Performing Organization Address [facility] de Phone Number [facility] Department [place] [address] * Magnesium (08/31/2024 8:12 AM CDT) Magnesium 1.8 1.4 - 2.5 mg/dL Blood 08/31/2024 8:12 AM CDT 08/31/2024 8:20 AM CDT Hermelindo Butler MD LAB BLOOD ORDER ELANA Final Result Performing Organization Address City/[facility] Co de Phone Number [facility] [place] [address] * Lactate dehydrogenase (LD) (08/31/2024 8:12 AM CDT) Lactate dehydrogenase (LDH) 155 100 - 250 Units/L Blood 08/31/2024 8:12 AM CDT 08/31/2024 8:20 AM CDT Hermelindo Butler MD LAB BLOOD ORDER ELANA Final Result Performing Organization Address City/[facility] Co de Phone Number [facility] [place] [address] * Gamma GT (08/31/2024 8:12 AM CDT) [facility] GGT 27 10 - 50 Units/L Blood 08/31/2024 8:12 AM CDT 08/31/2024 8:20 AM CDT Hermelindo Butler MD LAB BLOOD ORDER ELANA Final Result Performing Organization Address [facility] [place] [address] * (ABNORMAL) IgA (08/31/2024 8:12 AM CDT) [facility] Immunoglobulin A <50(L) 70 - 400 mg/dL Blood 08/31/2024 8:12 AM CDT 08/31/2024 8:38 AM CDT Hermelindo Butler MD LAB BLOOD ORDER ELANA Final Result Performing Organization Address [facility] Co de Phone Number [facility] [place] [address] * (ABNORMAL) IgM (08/31/2024 8:12 AM CDT) [facility] Immunoglobulin M <25(L) 40 - 230 mg/dL Blood 08/31/2024 8:12 AM CDT 08/31/2024 8:38 AM CDT Hermelindo Butler MD LAB BLOOD ORDER ELANA Final Result Performing Organization Address City/[facility] Co de Phone Number [facility] [place] [address] * (ABNORMAL) IgG (08/31/2024 8:12 AM CDT) Pathologist [facility] Immunoglobulin G <300(L) 700 - 1,600 mg/dL Blood 08/31/2024 8:12 AM CDT 08/31/2024 8:38 AM CDT Hermelindo Butler MD LAB BLOOD ORDER ELANA Final Result [facility] Department [place] [address] * (ABNORMAL) Comprehensive metabolic panel (08/31/2024 8:12 AM CDT) Pathologist [facility] Sodium 141 135 - 145 mmol/L Potassium, pl 4.0 3.3 - 4.9 mmol/L [facility] Chloride 103 97 - 110 mmol/L [facility] CO2 29 22 - 32 mmol/L [facility] Anion gap 9 2 - 15 mmol/L [facility] BUN 31(H) 6 - 25 mg/dL [facility] Creatinine 1.61(H) 0.80 - 1.30 mg/dL [facility] Glucose 114 70 - 199 mg/dL [facility] Comment: Interpretive Data Fasting glucose [...] 2022. Calcium 9.4 8.5 - 10.3 mg/dL [facility] Bilirubin, total 0.4 0.1 - 1.2 mg/dL [facility] Protein, pl 6.5 6.5 - 8.5 g/dL [facility] Albumin 4.1 3.5 - 5.0 g/dL [facility] Alk phos 65 40 - 130 Units/L [facility] ALT 16 7 - 55 Units/L [facility] AST 15 10 - 50 Units/L [facility] Blood 08/31/2024 8:12 AM CDT 08/31/2024 8:20 AM CDT us Hermelindo Butler MD LAB BLOOD ORDER ELANA Final Result [facility] Department [place] [address] * SCAN - LABS (08/30/2024) us Provider [...] MD LAB BLOOD ORDERABLES Final Result [facility] [place] [address] * (ABNORMAL) Differential, auto (08/26/2024 12:25 AM CDT) Neutrophil abs 5.3 1.5 - 6.5 K/cumm Imm gran abs 0.0 0.0 - 0.1 K/cumm [facility] Lymphocyte abs 0.7(L) 0.8 - 3.3 K/cumm [facility] Monocyte abs 0.6 0.2 - 0.8 K/cumm [facility] Eosinophil abs 0.3 0.0 - 0.5 K/cumm [facility] Basophil abs 0.0 0.0 - 0.1 K/cumm [facility] Neutrophil pct 75.7 % [facility] Comment: Interpretive Data Percent cell count reference ranges are not reported, since discordance with absolute values may lead to misinterpretation of CBC data. Current Interpretive Data was last revised on 2017. Imm gran pct 0.4 % [facility] Comment: Interpretive Data Percent cell count reference ranges are not reported, since discordance with absolute values may lead to misinterpretation of CBC data. Current Interpretive Data was last revised on 2017. Lymphocyte pct 10.4 % [facility] Comment: Interpretive Data Percent cell count reference ranges are not reported, since discordance with absolute values may lead to misinterpretation of CBC data. Current Interpretive Data was last revised on 2017. Monocyte pct 9.0 % [facility] Comment: Interpretive Data Percent cell count reference ranges are not reported, since discordance with absolute values may lead to misinterpretation of CBC data. Current Interpretive Data was last revised on 2017. Eosinophil pct 4.4 % [facility] Comment: Interpretive Data Percent cell count reference ranges are not reported, since discordance with absolute values may lead to misinterpretation of CBC data. Current Interpretive Data was last revised on 2017. Basophil pct 0.1 % [facility] Comment: Interpretive Data Percent cell count reference ranges are not reported, since discordance with absolute values may lead to misinterpretation of CBC data. Current Interpretive Data was last revised on 2017. Blood 08/26/2024 12:2 5 AM CDT 08/26/2024 12:35 AM CDT Karlos Hargrove MD LAB BLOOD ORDERABLES Final Result Performing Organization Address [facility] Co de Phone Number [facility] [place] [address] * (ABNORMAL) CBC with auto differential (08/26/2024 12:25 AM CDT) Pathologist [facility] WBC 7.0 3.8 - 9.9 K/cumm Hgb 11.8(L) 13.0 - 17.5 g/dL [facility] Hct 35.7(L) 38.9 - 50.3 % [facility] Plt 131(L) 150 - 400 K/cumm [facility] MPV 9.2 9.1 - 12.3 fL [facility] RBC 3.83(L) 4.30 - 5.80 M/cumm [facility] MCV 93.2 81.3 - 96.4 fL [facility] MCH 30.8 27.1 - 33.3 pg [facility] MCHC 33.1 32.3 - 35.7 g/dL [facility] RDW CV 15.4(H) 11.1 - 14.9 % [facility] RDW SD 51.7(H) 35.7 - 48.1 fL [facility] NRBC abs 0.00 0.00 - 0.01 K/cumm [facility] Blood 08/26/2024 12:2 5 AM CDT 08/26/2024 12:35 AM CDT Karlos Hargrove MD LAB BLOOD ORDERABLES Final Result Performing Organization Address City/[facility]/ZIP Co de Phone Number [facility] [place] [address] * Type and screen (08/26/2024 12:25 AM CDT) Yehuda, indirect Negative Comment:Patient has previous antibody history ABO Rh A Positive [facility] Blood 08/26/2024 12:2 5 AM CDT 08/26/2024 12:38 AM CDT Narrative [facility] - 08/26/2024 2:23 AM CDT Has the patient had Daratumumab or Isatuximab in the past 6 months?->Unknown us Karlos Hargrove MD LAB BLOOD BANK TEST ORDERA BLES Final Result Performing Organization Address City/[facility] Co de Phone Number [facility] [employer] [place] [place] [address] * (ABNORMAL) Uric acid (08/26/2024 12:25 AM CDT) [facility] Uric acid 8.6(H) 3.0 - 8.0 mg/dL Blood 08/26/2024 12:2 5 AM CDT 08/26/2024 12:35 AM CDT Narrative [facility] - 08/26/2024 1:10 AM CDT Friday and only. Morning draw. . us Karlos Hargrove MD LAB BLOOD ORDERABLES Final Result Performing Organization Address City/[facility] Co de Phone Number [facility] Department [place] [address] * Phosphorus (08/26/2024 12:25 AM CDT) Pathologist [facility] Phosphorus, pl 3.6 2.3 - 4.5 mg/dL Blood 08/26/2024 12:2 5 AM CDT 08/26/2024 12:35 AM CDT us Karlos Hargrove MD LAB BLOOD ORDERABLES Final Result Performing Organization Address City/[facility]/ZIP Co de Phone Number [facility] [place] [address] * Magnesium (08/26/2024 12:25 AM CDT) [facility] Magnesium 1.7 1.4 - 2.5 mg/dL Blood 08/26/2024 12:2 5 AM CDT 08/26/2024 12:35 AM CDT Karlos Hargrove MD LAB BLOOD ORDERABLES Final Result Performing Organization Address City/[facility]/ZIP Co de Phone Number [facility] [place] [address] * Lactate dehydrogenase (LD) (08/26/2024 12:25 AM CDT) [facility] Lactate dehydrogenase (LDH) 167 100 - 250 Units/L Blood 08/26/2024 12:2 5 AM CDT 08/26/2024 12:35 AM CDT Narrative [facility] - 08/26/2024 1:10 AM CDT Friday and only. Morning draw. Karlos Hargrove MD LAB BLOOD ORDERABLES Final Result Performing Organization Address [facility] Co de Phone Number [facility] Department [place] [address] * (ABNORMAL) Comprehensive metabolic panel (08/26/2024 12:25 AM CDT) [facility] Sodium 148(H) 135 - 145 mmol/L Potassium, pl 3.4 3.3 - 4.9 mmol/L [facility] Chloride 108 97 - 110 mmol/L [facility] CO2 28 22 - 32 mmol/L [facility] Anion gap 12 2 - 15 mmol/L [facility] BUN 35(H) 6 - 25 mg/dL [facility] Creatinine 2.27(H) 0.80 - 1.30 mg/dL [facility] Glucose 107 70 - 199 mg/dL [facility] Comment: Interpretive Data Fasting glucose [...] 2022. Calcium 8.9 8.5 - 10.3 mg/dL [facility] Bilirubin, total 0.6 0.1 - 1.2 mg/dL [facility] Protein, pl 5.9(L) 6.5 - 8.5 g/dL [facility] Albumin 3.7 3.5 - 5.0 g/dL [facility] Alk phos 60 40 - 130 Units/L [facility] ALT 15 7 - 55 Units/L [facility] AST 13 10 - 50 Units/L [facility] Blood 08/26/2024 12:2 5 AM CDT 08/26/2024 12:35 AM CDT Karlos Hargrove MD LAB BLOOD ORDERABLES Final Result [facility] Department [place] [address] * US Vein Duplex Lower Extremity Bilateral Complete (08/25/2024 9:30 AM CDT) Anatomical Region Laterality Modality Vascular Bilateral Ultrasound 08/25/2024 8:37 AM CDT Narrative 08/27/2024 11:10 AM CDT [facility] - Department of Vascular Surgery, Vascular Laboratory [address] [place] [id number] Lower Extremity Venous Ultrasound Report Patient Name: MAYRASHASHANKBUFFY B : 1950 (73y 8m) Study Date: 08/25/2024 8:37:41 AM Gender: M Tech: Location: [id number] Ref Provider: OLGA KEITH Quality: Adequate Order Provider: OLGA KEITH PROCEDURES: Vascular Report: Venous Duplex imaging was performed bilaterally in the lower extremities. The common femoral, femoral, popliteal, posterior tibial, peroneal veins were evaluated for patency, spontaneity and phasicity with Doppler, compression and augmentation maneuvers. Great saphenous vein proximal at the junction was evaluated with compression maneuvers. INDICATIONS: Localized edema. FINDINGS: Performing Cab Driver: Farzana Owens RVT. Bilateral: Venous Doppler signals [...] above. Electronically Signed By: Cesar Cabello MD [facility] [phone] 08/27/2024 10:10:26 AM CDT Procedure Note Cesar Cabello MD - 08/27/2024 [facility] - Department of Vascular Surgery,Vascular Laboratory [address] [place] [address] Lower Extremity Venous Ultrasound Report Patient Name: BUFFY VALLE B : 1950 (73y 8m) Study Date: 08/25/2024 8:37:41 AM Gender: M Tech: Location: [id number] Ref Provider: OLGA KEITH Quality: Adequate Order Provider: OLGA KEITH PROCEDURES: Vascular Report: Venous Duplex imaging was performed bilaterally in the lower extremities.The common femoral, femoral, popliteal, posterior tibial, peroneal veins wereevaluated for patency, spontaneity and phasicity with Doppler, compression and augmentationmaneuvers. Great saphenous vein proximal at the junction was evaluated with compressionmaneuvers. INDICATIONS: Localized edema. FINDINGS: Performing Cab Driver: Farzana Owens RVT. Bilateral: Venous Doppler signals [...] above. Electronically Signed By: Cesar Cabello MD [facility] [phone] 08/27/2024 10:10:26 AM CDT us Olga Keith [...] MD LAB BLOOD ORDERABLES Final Result [facility] Department [place] [address] * (ABNORMAL) Differential, auto (08/25/2024 12:34 AM CDT) Neutrophil abs 5.2 1.5 - 6.5 K/cumm Imm gran abs 0.1 0.0 - 0.1 K/cumm [facility] Lymphocyte abs 0.5(L) 0.8 - 3.3 K/cumm [facility] Monocyte abs 0.5 0.2 - 0.8 K/cumm [facility] Eosinophil abs 0.4 0.0 - 0.5 K/cumm [facility] Basophil abs 0.0 0.0 - 0.1 K/cumm [facility] Neutrophil pct 77.6 % [facility] Comment: Interpretive Data Percent cell count reference ranges are not reported, since discordance with absolute values may lead to misinterpretation of CBC data. Current Interpretive Data was last revised on 2017. Imm gran pct 0.7 % [facility] Comment: Interpretive Data Percent cell count reference ranges are not reported, since discordance with absolute values may lead to misinterpretation of CBC data. Current Interpretive Data was last revised on 2017. Lymphocyte pct 7.9 % [facility] Comment: Interpretive Data Percent cell count reference ranges are not reported, since discordance with absolute values may lead to misinterpretation of CBC data. Current Interpretive Data was last revised on 2017. Monocyte pct 7.5 % [facility] Comment: Interpretive Data Percent cell count reference ranges are not reported, since discordance with absolute values may lead to misinterpretation of CBC data. Current Interpretive Data was last revised on 2017. Eosinophil pct 6.0 % [facility] Comment: Interpretive Data Percent cell count reference ranges are not reported, since discordance with absolute values may lead to misinterpretation of CBC data. Current Interpretive Data was last revised on 2017. Basophil pct 0.3 % [facility] Comment: Interpretive Data Percent cell count reference ranges are not reported, since discordance with absolute values may lead to misinterpretation of CBC data. Current Interpretive Data was last revised on 2017. Blood 08/25/2024 12:3 4 AM CDT 08/25/2024 12:57 AM CDT Karlos Hargrove MD LAB BLOOD ORDERABLES Final Result [facility] Department [place] [address] * (ABNORMAL) CBC with auto differential (08/25/2024 12:34 AM CDT) WBC 6.7 3.8 - 9.9 K/cumm Hgb 11.2(L) 13.0 - 17.5 g/dL [facility] Hct 33.3(L) 38.9 - 50.3 % [facility] Plt 136(L) 150 - 400 K/cumm [facility] MPV 9.5 9.1 - 12.3 fL [facility] RBC 3.57(L) 4.30 - 5.80 M/cumm [facility] MCV 93.3 81.3 - 96.4 fL [facility] MCH 31.4 27.1 - 33.3 pg [facility] MCHC 33.6 32.3 - 35.7 g/dL [facility] RDW CV 15.3(H) 11.1 - 14.9 % [facility] RDW SD 51.0(H) 35.7 - 48.1 fL [facility] NRBC abs 0.00 0.00 - 0.01 K/cumm [facility] Blood 08/25/2024 12:3 4 AM CDT 08/25/2024 12:57 AM CDT us Karlos Hargrove MD LAB BLOOD ORDERABLES Final Result Performing Organization Address City/[facility] Co de Phone Number [facility] [place] [address] * Phosphorus (08/25/2024 12:34 AM CDT) Pathologist [facility] Phosphorus, pl 3.7 2.3 - 4.5 mg/dL Blood 08/25/2024 12:3 4 AM CDT 08/25/2024 12:55 AM CDT Karlos Hargrove MD LAB BLOOD ORDERABLES Final Result Performing Organization Address [facility] Co de Phone Number [facility] [place] [address] * Magnesium (08/25/2024 12:34 AM CDT) [facility] Magnesium 1.9 1.4 - 2.5 mg/dL Blood 08/25/2024 12:3 4 AM CDT 08/25/2024 12:55 AM CDT Karlos Hargrove MD LAB BLOOD ORDERABLES Final Result Performing Organization Address [facility] Co de Phone Number [facility] [place] [address] * (ABNORMAL) Comprehensive metabolic panel (08/25/2024 12:34 AM CDT) Sodium 147(H) 135 - 145 mmol/L Potassium, pl 3.2(L) 3.3 - 4.9 mmol/L [facility] Chloride 109 97 - 110 mmol/L [facility] CO2 26 22 - 32 mmol/L [facility] Anion gap 12 2 - 15 mmol/L [facility] BUN 47(H) 6 - 25 mg/dL [facility] Creatinine 2.74(H) 0.80 - 1.30 mg/dL [facility] Glucose 154 70 - 199 mg/dL [facility] Comment: Interpretive Data Fasting glucose [...] Calcium 8.4(L) 8.5 - 10.3 mg/dL [facility] Bilirubin, total 0.4 0.1 - 1.2 mg/dL [facility] Protein, pl 5.9(L) 6.5 - 8.5 g/dL [facility] Albumin 3.9 3.5 - 5.0 g/dL [facility] Alk phos 61 40 - 130 Units/L [facility] ALT 18 7 - 55 Units/L [facility] AST 17 10 - 50 Units/L [facility] Blood 08/25/2024 12:3 4 AM CDT 08/25/2024 12:55 AM CDT us Karlos Hargrove MD LAB BLOOD ORDERABLES Final Result [facility] Department [place] [address] * Sodium, urine, random (08/24/2024 5:16 PM CDT) Sodium, ur 44 mmol/L Comment: Interpretive Data No reference range established. Current interpretive data was last revised 2018. Urine 08/24/2024 5:16 PM CDT 08/24/2024 5:31 PM CDT us Olga Keith MD LAB URINE ORDERABLES Final Resul t [facility] [place] [address] * CT Abdomen Pelvis WO Contrast (08/24/2024 [...] [facility] Neutrophil pct 73.7 % [facility] Comment: Interpretive Data Percent cell count reference ranges are not reported, since discordance with absolute values may lead to misinterpretation of CBC data. Current Interpretive Data was last revised on 2017. Imm gran pct 0.6 % [facility] Comment: Interpretive Data Percent cell count reference ranges are not reported, since discordance with absolute values may lead to misinterpretation of CBC data. Current Interpretive Data was last revised on 2017. Lymphocyte pct 10.0 % [facility] Comment: Interpretive Data Percent cell count reference ranges are not reported, since discordance with absolute values may lead to misinterpretation of CBC data. Current Interpretive Data was last revised on 2017. Monocyte pct 8.3 % [facility] Comment: Interpretive Data Percent cell count reference ranges are not reported, since discordance with absolute values may lead to misinterpretation of CBC data. Current Interpretive Data was last revised on 2017. Eosinophil pct 7.1 % [facility] Comment: Interpretive Data Percent cell count reference ranges are not reported, since discordance with absolute values may lead to misinterpretation of CBC data. Current Interpretive Data was last revised on 2017. Basophil pct 0.3 % [facility] Comment: Interpretive Data Percent cell count reference ranges are not reported, since discordance with absolute values may lead to misinterpretation of CBC data. Current Interpretive Data was last revised on 2017. Blood 08/24/2024 2:30 AM CDT 08/24/2024 1:28 AM CDT Karlos Hargrove MD LAB BLOOD ORDERABLES Final Result Performing Organization Address [facility] de Phone Number [facility] [place] [place] [address] * (ABNORMAL) CBC with auto differential (08/24/2024 2:30 AM CDT) WBC 6.6 3.8 - 9.9 K/cumm Hgb 10.9(L) 13.0 - 17.5 g/dL [facility] Hct 33.1(L) 38.9 - 50.3 % [facility] Plt 130(L) 150 - 400 K/cumm [facility] MPV 10.0 9.1 - 12.3 fL [facility] RBC 3.50(L) 4.30 - 5.80 M/cumm [facility] MCV 94.6 81.3 - 96.4 fL [facility] MCH 31.1 27.1 - 33.3 pg [facility] MCHC 32.9 32.3 - 35.7 g/dL [facility] RDW CV 15.3(H) 11.1 - 14.9 % [facility] RDW SD 51.8(H) 35.7 - 48.1 fL [facility] NRBC abs 0.00 0.00 - 0.01 K/cumm [facility] Blood 08/24/2024 2:30 AM CDT 08/24/2024 1:28 AM CDT Karlos Hargrove MD LAB BLOOD ORDERABLES Final Result Performing Organization Address [facility] Co de Phone Number [facility] [place] [employer] [place] [address] * (ABNORMAL) eGFR (08/24/2024 1:12 AM CDT) [...] BLOOD ORDERABLES Final Result Performing Organization Address City/State/[facility] Co de Phone Number [facility] [place] [address] * aPTT (08/24/2024 1:12 AM CDT) aPTT 32 28 - 38 sec Comment: Interpretive Data Heparin therapeutic range: 66.0 - 100.0 seconds. Range based on correlation with therapeutic heparin activity range of 0.3 - 0.7 Units/mL. Current interpretive data was last revised on 2023. Blood 08/24/2024 1:12 AM CDT 08/24/2024 1:53 AM CDT Karlos Hargrove MD LAB BLOOD ORDERABLES Final Result [facility] [place] [address] * Protime-INR (08/24/2024 1:12 AM CDT) [facility] PT 11.7 9.7 - 13.0 sec INR 1.08 0.90 - 1.20 [facility] Comment: Interpretive data Oral anticoagulant therapeutic ranges: Venous thromboembolism prophylaxis or treatment: 2.0-3.0 CARDIOLOGY Standard range: 2.0-3.0 High-intensity range: 2.5-3.5 Refer to indication-specific guidelines for appropriate target ranges for prosthetic heart valve replacement. Current interpretive data was last revised on 2019. Blood 08/24/2024 1:12 AM CDT 08/24/2024 1:53 AM CDT Karlos Hargrove MD LAB BLOOD ORDERABLES Final Result Performing Organization Address City/[facility] Co de Phone Number [facility] Department [place] [address] * Type and screen (08/24/2024 1:12 AM CDT) [facility] Yehuda, indirect Negative Comment:Patient has previous antibody history ABO Rh A Positive [facility] Blood 08/24/2024 1:12 AM CDT 08/24/2024 1:36 AM CDT Narrative [facility] - 08/24/2024 2:36 AM CDT Has the patient had Daratumumab or Isatuximab in the past 6 months?->Unknown Karlos Hargrove MD LAB BLOOD BANK TEST ORDERA BLES Final Result [facility] Department [place] [address] * (ABNORMAL) Uric acid (08/24/2024 1:12 AM CDT) [facility] Uric acid 9.5(H) 3.0 - 8.0 mg/dL Blood 08/24/2024 1:12 AM CDT 08/24/2024 1:35 AM CDT Narrative [facility] - 08/24/2024 2:47 AM CDT Friday and only. Morning draw. . us Karlos Hargrove MD LAB BLOOD ORDERABLES Final Result [facility] Department [place] [address] * Phosphorus (08/24/2024 1:12 AM CDT) [facility] Phosphorus, pl 4.5 2.3 - 4.5 mg/dL Blood 08/24/2024 1:12 AM CDT 08/24/2024 1:35 AM CDT us Karlos Hargrove MD LAB BLOOD ORDERABLES Final Result Performing Organization Address City/[facility] Co de Phone Number [facility] Department [place] [address] * Magnesium (08/24/2024 1:12 AM CDT) [facility] Magnesium 2.0 1.4 - 2.5 mg/dL Blood 08/24/2024 1:12 AM CDT 08/24/2024 1:35 AM CDT us Karlos Hargrove MD LAB BLOOD ORDERABLES Final Result Performing Organization Address City/[facility] Co de Phone Number [facility] [place] [address] * Lactate dehydrogenase (LD) (08/24/2024 1:12 AM CDT) [facility] Lactate dehydrogenase (LDH) 226 100 - 250 Units/L Blood 08/24/2024 1:12 AM CDT 08/24/2024 1:35 AM CDT Narrative [facility] - 08/24/2024 2:47 AM CDT Friday and only. Morning draw. Karlos Hargrove MD LAB BLOOD ORDERABLES Final Result [facility] Department [place] [address] * (ABNORMAL) Comprehensive metabolic panel (08/24/2024 1:12 AM CDT) Sodium 148(H) 135 - 145 mmol/L Potassium, pl 3.6 3.3 - 4.9 mmol/L [facility] Chloride 111(H) 97 - 110 mmol/L [facility] CO2 25 22 - 32 mmol/L [facility] Anion gap 12 2 - 15 mmol/L [facility] BUN 56(H) 6 - 25 mg/dL [facility] Creatinine 3.16(H) 0.80 - 1.30 mg/dL [facility] Glucose 102 70 - 199 mg/dL [facility] Comment: Interpretive Data Fasting glucose [...] 2022. Calcium 8.5 8.5 - 10.3 mg/dL [facility] Bilirubin, total 0.4 0.1 - 1.2 mg/dL [facility] Protein, pl 5.7(L) 6.5 - 8.5 g/dL [facility] Albumin 3.6 3.5 - 5.0 g/dL [facility] Alk phos 62 40 - 130 Units/L [facility] ALT 16 7 - 55 Units/L [facility] AST 11 10 - 50 Units/L [facility] Blood 08/24/2024 1:12 AM CDT 08/24/2024 1:35 AM CDT Karlos Hargrove MD LAB BLOOD ORDERABLES Final Result [facility] [place] [address] * US Kidney Complete (08/23/2024 8:12 PM [...] signed by: Qian Barnes M.D. Kinga Jones STATEMENT PROCESSOR IMG US PROCEDURES Final R esult * (ABNORMAL) Urinalysis reflex to microscopic (08/23/2024 7:01 PM CDT) Color, ur Straw Yellow Clarity, ur Clear Clear [facility] Specific gravity, ur 1.011 1.003 - 1.030 [facility] pH, urine 5.5 [facility] Comment: Interpretive Data U rine pH is affected by diet, medications, systemic acid-base disturbances, and renal tubular function. pH may affect urinary stone formation. For example, urine pH below 6.0 may help reduce the tendency for calcium phosphate stones and pH greater than 6.0 may reduce the tendency for uric acid stone formation. Source: [facility] [employer] Current Interpretive Data was last revised on 2017 Protein, ur ql Negative Negative [facility] Glucose, ur ql Negative Negative [facility] Ketones, ur Negative Negative [facility] Bilirubin, ur Negative Negative [facility] Blood, ur 2+(A) Negative [facility] Urobilinogen, ur <2.0 <2.0 mg/dL [facility] Nitrite, ur Negative Negative [facility] Leukocyte esterase, ur Trace(A) Negative [facility] UA reflex comment Reflex to microscopic UA will be performed. [facility] Urine 08/23/2024 7:01 PM CDT 08/23/2024 7:15 PM CDT Kinga Jones NP LAB URINE ORDERABLES Angeles nicole Result [facility] Department [place] [address] * Protein / creatinine ratio, urine, random (08/23/2024 7:01 PM CDT) Pathologist [facility] Protein, ur, quant 6.4 mg/dL Comment: Interpretive Data No reference range established. Current interpretive data was last revised 2018. Creatinine Ur 74.0 mg/dL [facility] Comment: Interpretive Data No reference range established. Current interpretive data was last revised 2018. Protein/creatinin e ratio 86.5 0.0 - 180.0 mg/g CR [facility] Urine 08/23/2024 7:01 PM CDT 08/23/2024 7:28 PM CDT Kinga Jones STATEMENT PROCESSOR LAB URINE ORDERABLES Angeles l Result Performing Organization Address City/[facility]/ZIP Co de Phone Number [facility] Department [place] [address] * (ABNORMAL) Urinalysis, microscopic only (08/23/2024 7:01 PM CDT) Pathologist [facility] WBC, ur 0-5 0 - 5 /HPF RBC, ur 6-10(A) 0 - 2 /HPF [facility] Urine 08/23/2024 7:01 PM CDT 08/23/2024 7:15 PM CDT Kinga Jones STATEMENT PROCESSOR LAB URINE ORDERABLES Angeles l Result [facility] [place] [address] * Urine culture Urine, clean voided (08/23/2024 7:01 PM CDT) Pathologist [facility] Report Final Report: Less than 100,000 colonies/mL (clinically insignificant growth based on current clinical standards) Organism (CLINICALLY INSIGNIFICANT GROWTH [facility] Urine, clean voided 08/23/2024 7:01 PM CDT 08/23/2024 8:52 PM CDT Narrative [facility] - 08/25/2024 8:02 AM CDT Indications for Culture:->Other (specify) Other Indication:->elevated creatinine Specimen received in a sterile container. Testing performed by [facility] ([phone]) Kinga Jones NP LAB MICROBIOLOGY - GENERA L ORDERABLES Final Result Performing Organization Address City/[facility] Co de Phone Number [facility] Department [place] [address] * Immunotyping, serum with interpretation (08/23/2024 6:04 PM CDT) Immunosubtraction Please see comment Comment: NO PARAPROTEIN DETECTED Reviewed and signed by Fernando Nunez MD, PhD 08/24/2024 Blood 08/23/2024 6:04 PM CDT 08/23/2024 6:13 PM CDT us Hermelindo Butler MD LAB BLOOD ORDER ELANA Final Result Performing Organization Address [facility] Co de Phone Number [facility] Department [place] [address] * (ABNORMAL) eGFR (08/23/2024 6:04 PM CDT) [...] LAB BLOOD ORDER ELANA Final Result [facility] [place] [address] * (ABNORMAL) Differential, auto (08/23/2024 6:04 PM CDT) Neutrophil abs 6.5 1.5 - 6.5 K/cumm Imm gran abs 0.0 0.0 - 0.1 K/cumm [facility] Lymphocyte abs 0.7(L) 0.8 - 3.3 K/cumm [facility] Monocyte abs 0.6 0.2 - 0.8 K/cumm [facility] Eosinophil abs 0.6(H) 0.0 - 0.5 K/cumm [facility] Basophil abs 0.0 0.0 - 0.1 K/cumm [facility] Neutrophil pct 77.0 % [facility] Comment: Interpretive Data Percent cell count reference ranges are not reported, since discordance with absolute values may lead to misinterpretation of CBC data. Current Interpretive Data was last revised on 2017. Imm gran pct 0.5 % [facility] Comment: Interpretive Data Percent cell count reference ranges are not reported, since discordance with absolute values may lead to misinterpretation of CBC data. Current Interpretive Data was last revised on 2017. Lymphocyte pct 8.3 % [facility] Comment: Interpretive Data Percent cell count reference ranges are not reported, since discordance with absolute values may lead to misinterpretation of CBC data. Current Interpretive Data was last revised on 2017. Monocyte pct 7.3 % [facility] Comment: Interpretive Data Percent cell count reference ranges are not reported, since discordance with absolute values may lead to misinterpretation of CBC data. Current Interpretive Data was last revised on 2017. Eosinophil pct 6.5 % [facility] Comment: Interpretive Data Percent cell count reference ranges are not reported, since discordance with absolute values may lead to misinterpretation of CBC data. Current Interpretive Data was last revised on 2017. Basophil pct 0.4 % [facility] Comment: Interpretive Data Percent cell count reference ranges are not reported, since discordance with absolute values may lead to misinterpretation of CBC data. Current Interpretive Data was last revised on 2017. Blood 08/23/2024 6:04 PM CDT 08/23/2024 6:12 PM CDT Hermelindo Butler MD LAB BLOOD ORDER ELANA Final Result [facility] Department [place] [address] * (ABNORMAL) Immunoglobulin free light chains (08/23/2024 6:04 PM CDT) Caraway/Lambda ratio [facility] <0.40 0.26 - 1.65 Comment: Interpretive Data The Binding Site FreeLite assay procedure was used. Results from different manufacturers or methods may not be comparable. Serial testing should be performed using the same methods and instrumentation. Current Interpretive Data was last revised on 2023. Caraway free light chain [facility] <0.06(L) 0.33 - 1.94 mg/dL [facility] Comment: Interpretive Data The Binding Site FreeLite assay procedure was used. Results from different manufacturers or methods may not be comparable. Serial testing should be performed using the same methods and instrumentation. Current Interpretive Data was last revised on 2023. Lambda free light chain [facility] 0.15(L) 0.57 - 2.63 mg/dL [facility] Comment: Interpretive Data The [...] ORDER ELANA Final Result Performing Organization Address City/[facility]/ZIP Co de Phone Number [facility] Department [place] [address] * (ABNORMAL) CBC with auto differential (08/23/2024 6:04 PM CDT) WBC 8.5 3.8 - 9.9 K/cumm Hgb 11.8(L) 13.0 - 17.5 g/dL [facility] Hct 35.6(L) 38.9 - 50.3 % [facility] Plt 131(L) 150 - 400 K/cumm [facility] MPV 9.8 9.1 - 12.3 fL [facility] RBC 3.78(L) 4.30 - 5.80 M/cumm [facility] MCV 94.2 81.3 - 96.4 fL [facility] MCH 31.2 27.1 - 33.3 pg [facility] MCHC 33.1 32.3 - 35.7 g/dL [facility] RDW CV 15.2(H) 11.1 - 14.9 % [facility] RDW SD 51.2(H) 35.7 - 48.1 fL [facility] NRBC abs 0.00 0.00 - 0.01 K/cumm [facility] Blood 08/23/2024 6:04 PM CDT 08/23/2024 6:12 PM CDT Hermelindo Butler MD LAB BLOOD ORDER ELANA Final Result Performing Organization Address City/[facility]/ZIP Co de Phone Number [facility] Department [place] [address] * (ABNORMAL) Uric acid (08/23/2024 6:04 PM CDT) Pathologist [facility] Uric acid 9.5(H) 3.0 - 8.0 mg/dL Blood 08/23/2024 6:04 PM CDT 08/23/2024 6:13 PM CDT Hermelindo Butler MD LAB BLOOD ORDER ELANA Final Result [facility] [place] [address] * (ABNORMAL) Protein electrophoresis with reflex, serum with interpretation (08/23/2024 6:04 PM CDT) [facility] Protein, sr 5.9(L) 6.2 - 8.2 g/dL Albumin 3.9 3.2 - 5.0 g/dL [facility] Alpha-1 globulin 0.4 0.2 - 0.4 g/dL [facility] Alpha-2 globulin 0.7 0.5 - 1.0 g/dL [facility] Beta-1 globulin 0.4 0.3 - 0.6 g/dL [facility] Beta-2 globulin 0.3 0.2 - 0.6 g/dL [facility] Gamma globulin 0.2(L) 0.5 - 1.7 g/dL [facility] SPEP interp Please see comment [facility] Comment: No apparent monoclonal peak Decreased gamma globulins Electrophoretic pattern appears similar to previous sample 08/04/24 See immunotyping for further information Reviewed and signed by Fernando Nunez MD, PhD 08/24/2024 Blood 08/23/2024 6:04 PM CDT 08/23/2024 6:13 PM CDT Hermelindo Butler MD LAB BLOOD ORDER ELANA Final Result [facility] [place] [address] * (ABNORMAL) Phosphorus (08/23/2024 6:04 PM CDT) Pathologist [facility] Phosphorus, pl 4.7(H) 2.3 - 4.5 mg/dL Blood 08/23/2024 6:04 PM CDT 08/23/2024 6:13 PM CDT Hermelindo Butler MD LAB BLOOD [place] [address] * Magnesium (08/23/2024 6:04 PM CDT) [facility] Magnesium 1.9 1.4 - 2.5 mg/dL Blood 08/23/2024 6:04 PM CDT 08/23/2024 6:13 PM CDT Hermelindo Butler MD LAB BLOOD ORDER ELANA Final Result [facility] [place] [address] * Lactate dehydrogenase (LD) (08/23/2024 6:04 PM CDT) [facility] Lactate dehydrogenase (LDH) 198 100 - 250 Units/L Blood 08/23/2024 6:04 PM CDT 08/23/2024 6:13 PM CDT Hermelindo Butler MD LAB BLOOD ORDER ELANA Final Result [facility] [place] [address] * (ABNORMAL) IgA (08/23/2024 6:04 PM CDT) Pathologist [facility] Immunoglobulin A <50(L) 70 - 400 mg/dL Blood 08/23/2024 6:04 PM CDT 08/23/2024 6:13 PM CDT Hermelindo Butler MD LAB BLOOD ORDER ELANA Final Result Performing Organization Address [facility] de Phone Number [facility] Department [place] [address] * (ABNORMAL) IgM (08/23/2024 6:04 PM CDT) Pathologist [facility] Immunoglobulin M <25(L) 40 - 230 mg/dL Blood 08/23/2024 6:04 PM CDT 08/23/2024 6:13 PM CDT Hermelindo Butler MD LAB BLOOD ORDER ELANA Final Result Performing Organization Address [facility] de Phone Number [facility] [place] [employer] [place] [address] * (ABNORMAL) IgG (08/23/2024 6:04 PM CDT) [facility] Immunoglobulin G <300(L) 700 - 1,600 mg/dL Blood 08/23/2024 6:04 PM CDT 08/23/2024 6:13 PM CDT Hermelindo Butler MD LAB BLOOD ORDER ELANA Final Result Performing Organization Address [facility] de Phone Number [facility] [employer] [place] [place] [address] * (ABNORMAL) Comprehensive metabolic panel (08/23/2024 6:04 PM CDT) [facility] Sodium 146(H) 135 - 145 mmol/L Potassium, pl 3.8 3.3 - 4.9 mmol/L [facility] Chloride 107 97 - 110 mmol/L [facility] CO2 26 22 - 32 mmol/L [facility] Anion gap 13 2 - 15 mmol/L [facility] BUN 58(H) 6 - 25 mg/dL [facility] Creatinine 3.37(H) 0.80 - 1.30 mg/dL [facility] Glucose 89 70 - 199 mg/dL [facility] Comment: Interpretive Data Fasting glucose [...] Calcium 8.9 8.5 - 10.3 mg/dL [facility] Bilirubin, total 0.4 0.1 - 1.2 mg/dL [facility] Protein, pl 6.2(L) 6.5 - 8.5 g/dL [facility] Albumin 4.0 3.5 - 5.0 g/dL [facility] Alk phos 68 40 - 130 Units/L [facility] ALT 16 7 - 55 Units/L [facility] AST 12 10 - 50 Units/L [facility] Blood 08/23/2024 6:04 PM CDT 08/23/2024 6:13 PM CDT us Hermelindo Butler MD LAB BLOOD ORDER ELANA Final Result [facility] [place] [address] * SCAN - LABS (08/20/2024) us Provider Scanning Final Result * SCAN - LABS (08/10/2024) us Provider Scanning Final Result * US Kidney Complete (08/06/2024 2:42 PM LABORATORY TECHNICAL SPECIALIST) Anatomical Region Laterality Modality Kidney N/A Ultrasound 08/06/2024 3:27 PM LABORATORY TECHNICAL SPECIALIST Impressions 08/06/2024 3:27 PM LABORATORY TECHNICAL SPECIALIST 1. Mild nephromegaly with mild to moderate hydronephrosis bilaterally. 2. Incomplete bladder emptying with post void bladder residual of 397 mL. Electronically signed by: Dylan Tinajero M.D. Narrative 08/06/2024 3:27 PM LABORATORY TECHNICAL SPECIALIST EXAMINATION: COMPLETE RENAL SONOGRAM HISTORY: Rising [...] by: Dylan Tinajero M.D. Hermelindo Butler MD [facility] PROCEDUR ES Final Result * (ABNORMAL) Urinalysis reflex to microscopic (08/06/2024 9:19 AM LABORATORY TECHNICAL SPECIALIST) Color, ur Straw Yellow Clarity, ur Clear Clear [facility] Specific gravity, ur 1.013 1.003 - 1.030 [facility] pH, urine 5.5 [facility] Comment: Interpretive Data U rine pH is affected by diet, medications, systemic acid-base disturbances, and renal tubular function. pH may affect urinary stone formation. For example, urine pH below 6.0 may help reduce the tendency for calcium phosphate stones and pH greater than 6.0 may reduce the tendency for uric acid stone formation. Source: [facility] Current Interpretive Data was last revised on 2017 Protein, ur ql Negative Negative [facility] Glucose, ur ql Negative Negative [facility] Ketones, ur Negative Negative [facility] Bilirubin, ur Negative Negative [facility] Blood, ur 3+(A) Negative [facility] Urobilinogen, ur <2.0 <2.0 mg/dL [facility] Nitrite, ur Negative Negative [facility] Leukocyte esterase, ur Trace(A) [facility] UA reflex comment Reflex to microscopic UA will be performed. [facility] Urine 08/06/2024 9:19 AM LABORATORY TECHNICAL SPECIALIST 08/06/2024 9:19 AM LABORATORY TECHNICAL SPECIALIST Lyndsey Fagan NP LAB URINE ORDERABLES Angeles nicole Result [facility] Department [place] [address] * Protein / creatinine ratio, urine, random (08/06/2024 9:19 AM LABORATORY TECHNICAL SPECIALIST) Protein, ur, quant 7.9 mg/dL Comment: Interpretive Data No reference range established. Current interpretive data was last revised 2018. Creatinine Ur 77.4 mg/dL [facility] Comment: Interpretive Data No reference range established. Current interpretive data was last revised 2018. Protein/creatinin e ratio 102.1 0.0 - 180.0 mg/g CR [facility] Urine 08/06/2024 9:19 AM LABORATORY TECHNICAL SPECIALIST 08/06/2024 9:41 AM LABORATORY TECHNICAL SPECIALIST Lyndsey Fagan NP LAB URINE ORDERABLES Angeles l Result Performing Organization Address [facility] Co de Phone Number [facility] [place] [address] * (ABNORMAL) Urinalysis, microscopic only (08/06/2024 9:19 AM LABORATORY TECHNICAL SPECIALIST) WBC, ur 6-10(A) 0 - 5 /HPF RBC, ur 21-50(A) 0 - 2 /HPF [facility] Bacteria, ur Trace(A) [facility] Mucous, ur Present(A) [facility] Urine 08/06/2024 9:19 AM LABORATORY TECHNICAL SPECIALIST 08/06/2024 9:19 AM LABORATORY TECHNICAL SPECIALIST Lyndsey Fagan NP LAB URINE ORDERABLES Angeles l Result Performing Organization Address [facility] Co de Phone Number [facility] [place] [address] * (ABNORMAL) eGFR (08/06/2024 7:43 AM LABORATORY TECHNICAL SPECIALIST) eGFR 31(L) >=60 mL/min/1. 73 m2 Comment: [...] last reviewed 2021. Blood 08/06/2024 7:43 AM LABORATORY TECHNICAL SPECIALIST 08/06/2024 7:52 AM LABORATORY TECHNICAL SPECIALIST us Hermelindo Butler MD LAB BLOOD ORDER ELANA Final Result [facility] Department [place] [address] * (ABNORMAL) Differential, auto (08/06/2024 7:43 AM LABORATORY TECHNICAL SPECIALIST) Neutrophil abs 5.4 1.5 - 6.5 K/cumm Comment:Testing performed by : [facility], [address] [place], [place] [id number] Lymphocyte abs 0.8 0.8 - 3.3 K/cumm [facility] Comment:Testing performed by : [facility], [address] [place] [phone] Monocyte abs 0.5 0.2 - 0.8 K/cumm [facility] Comment:Testing performed by : [facility], [address] [place] [phone] Eosinophil abs 0.7(H) 0.0 - 0.5 K/cumm [facility] Comment:Testing performed by : [facility], [address] [place] [phone] Basophil abs 0.0 0.0 - 0.1 K/cumm [facility] Comment:Testing performed by : [facility], [address] [place] [phone] Neutrophil pct 72.4 % [facility] Comment: Interpretive Data Percent cell count reference ranges are not reported, since discordance with absolute values may lead to misinterpretation of CBC data. Current Interpretive Data was last revised on 2017. Testing performed by: [facility], [address] [place] [address] Lymphocyte pct 10.4 % [facility] Comment: Interpretive Data Percent cell count reference ranges are not reported, since discordance with absolute values may lead to misinterpretation of CBC data. Current Interpretive Data was last revised on 2017. Testing performed by: [facility], [address] [place] [phone] Monocyte pct 7.3 % [facility] Comment: Interpretive Data Percent cell count reference ranges are not reported, since discordance with absolute values may lead to misinterpretation of CBC data. Current Interpretive Data was last revised on 2017. Testing performed by: [facility], [address] [place] [phone] Eosinophil pct 9.4 % [facility] Comment: Interpretive Data Percent cell count reference ranges are not reported, since discordance with absolute values may lead to misinterpretation of CBC data. Current Interpretive Data was last revised on 2017. Testing performed by: [facility], [address] [place] [phone] Basophil pct 0.5 % [facility] Comment: Interpretive Data Percent cell count reference ranges are not reported, since discordance with absolute values may lead to misinterpretation of CBC data. Current Interpretive Data was last revised on 2017. Testing performed by: [facility], [address] [place] [phone] Blood 08/06/2024 7:43 AM LABORATORY TECHNICAL SPECIALIST 08/06/2024 7:51 AM LABORATORY TECHNICAL SPECIALIST Hermelindo Butler MD LAB BLOOD ORDER ELANA Final Result [facility] Department [place] [address] * (ABNORMAL) CBC with auto differential (08/06/2024 7:43 AM LABORATORY TECHNICAL SPECIALIST) WBC 7.5 3.8 - 9.9 K/cumm Comment:Testing performed by : [facility], [address] [place] [address] Hgb 13.7 13.0 - 17.5 g/dL [facility] Comment:Testing performed by : [facility], [address] [place] [address] Hct 40.6 38.9 - 50.3 % [facility] Comment:Testing performed by : [facility], [address] [place], [place] [phone] Plt 169 150 - 400 K/cumm [facility] Comment:Testing performed by : [facility], [address] [place] [address] MPV 7.5 6.8 - 10.4 fL [facility] Comment:Testing performed by : [facility], [address] [place], [place] [phone] RBC 4.37 4.30 - 5.80 M/cumm [facility] Comment:Testing performed by : [facility], [address] [place] [address] MCV 92.7 81.3 - 96.4 fL [facility] Comment:Testing performed by : [facility], [address] [place] [address] MCH 31.3 27.1 - 33.3 pg [facility] Comment:Testing performed by : [facility], [address] [place] [address] MCHC 33.8 32.3 - 35.7 g/dL [facility] Comment:Testing performed by : [facility], [address] [place] [address] RDW CV 16.5(H) 11.1 - 14.9 % [facility] Comment:Testing performed by : [facility], [address] [place] [address] NRBC abs 0.00 0.00 - 0.01 K/cumm [facility] Comment:Testing performed by : [facility], [address] [place] [address] Blood 08/06/2024 7:43 AM LABORATORY TECHNICAL SPECIALIST 08/06/2024 7:51 AM LABORATORY TECHNICAL SPECIALIST Hermelindo Butler MD LAB BLOOD ORDER ELANA Final Result Performing Organization Address [facility] Co de Phone Number [facility] [place] [employer] [place] [address] * (ABNORMAL) PSA diagnostic (08/06/2024 7:43 AM LABORATORY TECHNICAL SPECIALIST) PSA-Total 6.28(H) <=6.20 ng/mL Comment: Interpretive [...] last revised 21. Blood 08/06/2024 7:43 AM LABORATORY TECHNICAL SPECIALIST 08/06/2024 7:52 AM LABORATORY TECHNICAL SPECIALIST Hermelindo Butler MD LAB BLOOD ORDER ELANA Final Result Performing Organization Address [facility] de Phone Number [facility] [place] [place] [address] * Lactate dehydrogenase (LD) (08/06/2024 7:43 AM LABORATORY TECHNICAL SPECIALIST) Lactate dehydrogenase (LDH) 161 100 - 250 Units/L Blood 08/06/2024 7:43 AM LABORATORY TECHNICAL SPECIALIST 08/06/2024 7:52 AM LABORATORY TECHNICAL SPECIALIST Hermelindo Butler MD LAB BLOOD ORDER ELANA Final Result Performing Organization Address City/[facility] Co de Phone Number [facility] [place] [address] * (ABNORMAL) Lipid panel (08/06/2024 7:43 AM LABORATORY TECHNICAL SPECIALIST) Cholesterol 128 30 - 199 mg/dL [...] on 2018. Triglycerides 149 <=149 mg/dL [facility] Comment: Interpretive Data Ages < or [...] Pediatrics 2011;128:S213 2. NCEP Expert Panel. Circulation 2003;110:227 Current Interpretive Data was last revised on 2018. HDL 38(L) >=40 mg/dL [facility] Comment: Interpretive Data Ages < or [...] 2018. LDL, calculated 64 <=129 mg/dL [facility] Comment: Interpretive Data Ages [...] revised on 2024. Non-HDL Cholesterol 90 mg/dL [facility] Comment: Interpretive Data Ages < or [...] last revised on 2018. Chol/HDL ratio 3 [facility] Blood 08/06/2024 7:43 AM LABORATORY TECHNICAL SPECIALIST 08/06/2024 7:52 AM LABORATORY TECHNICAL SPECIALIST us Hermelindo Butler MD LAB BLOOD ORDER ELANA Final Result [facility] Department [place] [address] * (ABNORMAL) Comprehensive metabolic panel (08/06/2024 7:43 AM LABORATORY TECHNICAL SPECIALIST) Sodium 145 135 - 145 mmol/L Potassium, pl 4.2 3.3 - 4.9 mmol/L [facility] Chloride 108 97 - 110 mmol/L [facility] CO2 30 22 - 32 mmol/L [facility] Anion gap 7 2 - 15 mmol/L [facility] BUN 51(H) 6 - 25 mg/dL [facility] Creatinine 2.21(H) 0.80 - 1.30 mg/dL [facility] Glucose 113 70 - 199 mg/dL [facility] Comment: Interpretive Data Fasting glucose [...] Calcium 9.2 8.5 - 10.3 mg/dL [facility] Bilirubin, total 0.5 0.1 - 1.2 mg/dL [facility] Protein, pl 6.2(L) 6.5 - 8.5 g/dL [facility] Albumin 4.1 3.5 - 5.0 g/dL [facility] Alk phos 61 40 - 130 Units/L [facility] ALT 15 7 - 55 Units/L [facility] AST 16 10 - 50 Units/L [facility] Blood 08/06/2024 7:43 AM LABORATORY TECHNICAL SPECIALIST 08/06/2024 7:52 AM LABORATORY TECHNICAL SPECIALIST Hermelindo Butler MD LAB BLOOD ORDER ELANA Final Result [facility] [place] [address] * aPTT (08/03/2024 9:21 AM LABORATORY TECHNICAL SPECIALIST) Pathologist [facility] aPTT 31 28 - 38 sec Comment: Interpretive Data Heparin therapeutic range: 66.0 - 100.0 seconds. Range based on correlation with therapeutic heparin activity range of 0.3 - 0.7 Units/mL. Current interpretive data was last revised on 2023. Blood 08/03/2024 9:21 AM LABORATORY TECHNICAL SPECIALIST 08/03/2024 9:47 AM LABORATORY TECHNICAL SPECIALIST Hermelindo Butler MD LAB BLOOD ORDER ELANA Final Result Performing Organization Address [facility] Co de Phone Number [facility] [place] [address] * Protime-INR (08/03/2024 9:21 AM LABORATORY TECHNICAL SPECIALIST) PT 11.5 9.7 - 13.0 sec INR 1.06 0.90 - 1.20 [facility] Comment: Interpretive data Oral anticoagulant therapeutic ranges: Venous thromboembolism prophylaxis or treatment: 2.0-3.0 CARDIOLOGY Standard range: 2.0-3.0 High-intensity range: 2.5-3.5 Refer to indication-specific guidelines for appropriate target ranges for prosthetic heart valve replacement. Current interpretive data was last revised on 2019. Blood 08/03/2024 9:21 AM LABORATORY TECHNICAL SPECIALIST 08/03/2024 9:47 AM LABORATORY TECHNICAL SPECIALIST Hermelindo Butler MD LAB BLOOD ORDER ELANA Final Result Performing Organization Address [facility] de Phone Number [facility] [place] [place] [address] * Immunotyping, serum with interpretation (08/03/2024 7:40 AM LABORATORY TECHNICAL SPECIALIST) Immunosubtraction Please see comment Comment: NO PARAPROTEIN DETECTED Reviewed and signed by Hermelindo Mcnulty MD 08/04/2024 Blood 08/03/2024 7:40 AM LABORATORY TECHNICAL SPECIALIST 08/03/2024 8:24 AM LABORATORY TECHNICAL SPECIALIST Hermelindo Butler MD LAB BLOOD ORDER ELANA Final Result Performing Organization Address City/[facility] Co de Phone Number [facility] Department [place] [address] * (ABNORMAL) eGFR (08/03/2024 7:40 AM LABORATORY TECHNICAL SPECIALIST) Pathologist [facility] eGFR 37(L) >=60 [...] last reviewed 2021. Blood 08/03/2024 7:40 AM LABORATORY TECHNICAL SPECIALIST 08/03/2024 7:49 AM LABORATORY TECHNICAL SPECIALIST Hermelindo Butler MD LAB BLOOD ORDER ELANA Final Result Performing Organization Address [facility] Co de Phone Number [facility] Department [place] [address] * (ABNORMAL) Differential, auto (08/03/2024 7:40 AM LABORATORY TECHNICAL SPECIALIST) Pathologist [facility] Neutrophil abs 5.6 1.5 - 6.5 K/cumm Comment:Testing performed by : [facility], [address] [place] [phone] Lymphocyte abs 0.9 0.8 - 3.3 K/cumm [facility] Comment:Testing performed by : [facility], [address] [place] [address] [place] [phone] Monocyte abs 0.6 0.2 - 0.8 K/cumm [facility] Comment:Testing performed by : [facility], [address] [place] [phone] Eosinophil abs 0.8(H) 0.0 - 0.5 K/cumm [facility] Comment:Testing performed by : [facility], [address] [place] [phone] Basophil abs 0.0 0.0 - 0.1 K/cumm [facility] Comment:Testing performed by : [facility], [address] [place] [phone] Neutrophil pct 70.4 % [facility] Comment: Interpretive Data Percent cell count reference ranges are not reported, since discordance with absolute values may lead to misinterpretation of CBC data. Current Interpretive Data was last revised on 2017. Testing performed by: [facility], [address] [place] [phone] Lymphocyte pct 11.2 % [facility] Comment: Interpretive Data Percent cell count reference ranges are not reported, since discordance with absolute values may lead to misinterpretation of CBC data. Current Interpretive Data was last revised on 2017. Testing performed by: [facility], [address] [place] [phone] Monocyte pct 7.7 % [facility] Comment: Interpretive Data Percent cell count reference ranges are not reported, since discordance with absolute values may lead to misinterpretation of CBC data. Current Interpretive Data was last revised on 2017. Testing performed by: [facility], [address] [place] [phone] Eosinophil pct 10.1 % [facility] Comment: Interpretive Data Percent cell count reference ranges are not reported, since discordance with absolute values may lead to misinterpretation of CBC data. Current Interpretive Data was last revised on 2017. Testing performed by: [facility], [address] [place] [phone] Basophil pct 0.6 % [facility] Comment: Interpretive Data Percent cell count reference ranges are not reported, since discordance with absolute values may lead to misinterpretation of CBC data. Current Interpretive Data was last revised on 2017. Testing performed by: [facility], [address] [place] [phone] Blood 08/03/2024 7:40 AM LABORATORY TECHNICAL SPECIALIST 08/03/2024 7:47 AM LABORATORY TECHNICAL SPECIALIST Hermelindo Butler MD LAB BLOOD ORDER ELANA Final Result [facility] Department [place] [address] * (ABNORMAL) Immunoglobulin free light chains (08/03/2024 7:40 AM LABORATORY TECHNICAL SPECIALIST) Caraway/Lambda ratio [facility] See Comment 0.26 - 1.65 Comment: Unable to calculate exact result. Interpretive Data The Binding Site FreeLite assay procedure was used. Results from different manufacturers or methods may not be comparable. Serial testing should be performed using the same methods and instrumentation. Current Interpretive Data was last revised on 2023. Caraway free light chain [facility] <0.06(L) 0.33 - 1.94 mg/dL [facility] Comment: Interpretive Data The Binding Site FreeLite assay procedure was used. Results from different manufacturers or methods may not be comparable. Serial testing should be performed using the same methods and instrumentation. Current Interpretive Data was last revised on 2023. Lambda free light chain [facility] <0.13(L) 0.57 - 2.63 mg/dL [facility] Comment: Interpretive Data The Binding Site FreeLite assay procedure was used. Results from different manufacturers or methods may not be comparable. Serial testing should be performed using the same methods and instrumentation. Current Interpretive Data was last revised on 2023. Blood 08/03/2024 7:40 AM LABORATORY TECHNICAL SPECIALIST 08/03/2024 8:24 AM LABORATORY TECHNICAL SPECIALIST Hermelindo Butler MD LAB BLOOD ORDER ELANA Final Result [facility] Department [place] [address] * (ABNORMAL) CBC with auto differential (08/03/2024 7:40 AM LABORATORY TECHNICAL SPECIALIST) WBC 7.9 3.8 - 9.9 K/cumm Comment:Testing performed by : [facility], [address] [place] [address] Hgb 13.7 13.0 - 17.5 g/dL [facility] Comment:Testing performed by : [facility], [address] [place] [address] Hct 41.5 38.9 - 50.3 % [facility] Comment:Testing performed by : [facility], [address] [place] [address] Plt 163 150 - 400 K/cumm [facility] Comment:Testing performed by : [facility], [address] [place] [address] MPV 7.8 6.8 - 10.4 fL [facility] Comment:Testing performed by : [facility], [address] [place] [address] RBC 4.50 4.30 - 5.80 M/cumm [facility] Comment:Testing performed by : [facility], [address] [place] [address] MCV 92.1 81.3 - 96.4 fL [facility] Comment:Testing performed by : [facility], [address] [place] [address] MCH 30.4 27.1 - 33.3 pg [facility] Comment:Testing performed by : [facility], [address] [place] [address] MCHC 33.0 32.3 - 35.7 g/dL [facility] Comment:Testing performed by : [facility], [address] [place] [address] RDW CV 16.6(H) 11.1 - 14.9 % [facility] Comment:Testing performed by : [facility], [address] [place] [phone] NRBC abs 0.00 0.00 - 0.01 K/cumm [facility] Comment:Testing performed by : [facility], [address] [place] [phone] Blood 08/03/2024 7:40 AM LABORATORY TECHNICAL SPECIALIST 08/03/2024 7:47 AM LABORATORY TECHNICAL SPECIALIST Hermelindo Butler MD LAB BLOOD ORDER ELANA Final Result [facility] Department [place] [address] * (ABNORMAL) Protein electrophoresis with reflex, serum with interpretation (08/03/2024 7:40 AM LABORATORY TECHNICAL SPECIALIST) Protein, sr 5.7(L) 6.2 - 8.2 g/dL Albumin 3.8 3.2 - 5.0 g/dL [facility] Alpha-1 globulin 0.3 0.2 - 0.4 g/dL [facility] Alpha-2 globulin 0.6 0.5 - 1.0 g/dL [facility] Beta-1 globulin 0.4 0.3 - 0.6 g/dL [facility] Beta-2 globulin 0.3 0.2 - 0.6 g/dL [facility] Gamma globulin 0.2(L) 0.5 - 1.7 g/dL [facility] SPEP interp Please see comment [facility] Comment: No apparent monoclonal peak Decreased gamma globulins Electrophoretic pattern appears similar to previous sample 07/14/24 *See immunotyping for further information Reviewed and signed by Heremlindo Mcnulty MD 08/04/2024 Blood 08/03/2024 7:40 AM LABORATORY TECHNICAL SPECIALIST 08/03/2024 8:24 AM LABORATORY TECHNICAL SPECIALIST Hermelindo Butler MD LAB BLOOD ORDER ELANA Final Result Performing Organization Address City/[facility] de Phone Number [facility] [place] [address] * Magnesium (08/03/2024 7:40 AM LABORATORY TECHNICAL SPECIALIST) [facility] Magnesium 2.2 1.4 - 2.5 mg/dL Blood 08/03/2024 7:40 AM LABORATORY TECHNICAL SPECIALIST 08/03/2024 9:36 AM LABORATORY TECHNICAL SPECIALIST Hermelindo Butler MD LAB BLOOD ORDER ELANA Final Result Performing Organization Address [facility] de Phone Number [facility] [place] [address] * Lactate dehydrogenase (LD) (08/03/2024 7:40 AM LABORATORY TECHNICAL SPECIALIST) [facility] Lactate dehydrogenase (LDH) 172 100 - 250 Units/L Blood 08/03/2024 7:40 AM LABORATORY TECHNICAL SPECIALIST 08/03/2024 7:49 AM LABORATORY TECHNICAL SPECIALIST Hermelindo Butler MD LAB BLOOD ORDER ELANA Final Result Performing Organization Address [facility] de Phone Number [facility] [place] [address] * (ABNORMAL) Hemoglobin A1c (08/03/2024 7:40 AM LABORATORY TECHNICAL SPECIALIST) [facility] Hgb A1C 5.8(H) 4.0 - 5.6 % Estimated Average Glucose 120 mg/dL [facility] Comment: The ADA recommends reporting an estimated Average Glucose (eAG) with all Hemoglobin A1c results using the equation derived from a study of 507 normal and diabetic adults. Minority populations were underrepresented and children were not included. (Diabetes Care 2020; 43(S1): S66-S76). The eAG is not equivalent to a fasting glucose. Blood 08/03/2024 7:40 AM LABORATORY TECHNICAL SPECIALIST 08/03/2024 7:49 AM LABORATORY TECHNICAL SPECIALIST Lyndsey Fagan NP LAB BLOOD ORDERABLES Angeles l Result Performing Organization Address [facility] Co de Phone Number [facility] [place] [address] * Gamma GT (08/03/2024 7:40 AM LABORATORY TECHNICAL SPECIALIST) GGT 23 10 - 50 Units/L Blood 08/03/2024 7:40 AM LABORATORY TECHNICAL SPECIALIST 08/03/2024 9:36 AM LABORATORY TECHNICAL SPECIALIST Hermelindo Butler MD LAB BLOOD ORDER ELANA Final Result Performing Organization Address [facility] Phone Number [facility] [place] [place] [address] * (ABNORMAL) IgA (08/03/2024 7:40 AM LABORATORY TECHNICAL SPECIALIST) Immunoglobulin A <50(L) 70 - 400 mg/dL Blood 08/03/2024 7:40 AM LABORATORY TECHNICAL SPECIALIST 08/03/2024 8:09 AM LABORATORY TECHNICAL SPECIALIST Hermelindo Butler MD LAB BLOOD ORDER ELANA Final Result Performing Organization Address [facility] de Phone Number [facility] Department [place] [address] * (ABNORMAL) IgM (08/03/2024 7:40 AM LABORATORY TECHNICAL SPECIALIST) Immunoglobulin M <25(L) 40 - 230 mg/dL Blood 08/03/2024 7:40 AM LABORATORY TECHNICAL SPECIALIST 08/03/2024 8:09 AM LABORATORY TECHNICAL SPECIALIST Hermelindo Butler MD LAB BLOOD ORDER ELANA Final Result Performing Organization Address [facility] Co de Phone Number [facility] Department [place] [address] * (ABNORMAL) IgG (08/03/2024 7:40 AM LABORATORY TECHNICAL SPECIALIST) [facility] Immunoglobulin G <300(L) 700 - 1,600 mg/dL Blood 08/03/2024 7:40 AM LABORATORY TECHNICAL SPECIALIST 08/03/2024 8:09 AM LABORATORY TECHNICAL SPECIALIST Hermelindo Butler MD LAB BLOOD ORDER ELANA Final Result [facility] [place] [address] * (ABNORMAL) Comprehensive metabolic panel (08/03/2024 7:40 AM LABORATORY TECHNICAL SPECIALIST) [facility] Sodium 141 135 - 145 mmol/L Potassium, pl 4.0 3.3 - 4.9 mmol/L [facility] Chloride 104 97 - 110 mmol/L [facility] CO2 30 22 - 32 mmol/L [facility] Anion gap 7 2 - 15 mmol/L [facility] BUN 47(H) 6 - 25 mg/dL [facility] Creatinine 1.92(H) 0.80 - 1.30 mg/dL [facility] Glucose 116 70 - 199 mg/dL [facility] Comment: Interpretive Data Fasting glucose [...] Calcium 9.2 8.5 - 10.3 mg/dL [facility] Bilirubin, total 0.7 0.1 - 1.2 mg/dL [facility] Protein, pl 6.2(L) 6.5 - 8.5 g/dL [facility] Albumin 3.9 3.5 - 5.0 g/dL [facility] Alk phos 63 40 - 130 Units/L [facility] ALT 15 7 - 55 Units/L [facility] AST 17 10 - 50 Units/L [facility] Blood 08/03/2024 7:40 AM LABORATORY TECHNICAL SPECIALIST 08/03/2024 7:49 AM LABORATORY TECHNICAL SPECIALIST Hermelindo Butler MD LAB BLOOD ORDER ELANA Final Result [facility] [place] [address] * (ABNORMAL) Urinalysis reflex to microscopic and culture Urine, clean voided (08/03/2024 7:30 AM LABORATORY TECHNICAL SPECIALIST) Color, ur Straw Yellow Clarity, ur Clear Clear [facility] Specific gravity, ur 1.012 1.003 - 1.030 [facility] pH, urine 5.5 [facility] Comment: Interpretive Data U rine pH is affected by diet, medications, systemic acid-base disturbances, and renal tubular function. pH may affect urinary stone formation. For example, urine pH below 6.0 may help reduce the tendency for calcium phosphate stones and pH greater than 6.0 may reduce the tendency for uric acid stone formation. Source: [facility] Current Interpretive Data was last revised on 2017 Protein, ur ql Negative Negative [facility] Glucose, ur ql Negative Negative [facility] Ketones, ur Negative Negative [facility] Bilirubin, ur Negative Negative [facility] Blood, ur 2+(A) Negative [facility] Urobilinogen, ur <2.0 <2.0 mg/dL [facility] Nitrite, ur Negative Negative [facility] Leukocyte esterase, ur Negative [facility] UA reflex comment Reflex to microscopic UA will be performed. [facility] Urine, clean voided 08/03/2024 7:30 AM LABORATORY TECHNICAL SPECIALIST 08/03/2024 7:30 AM LABORATORY TECHNICAL SPECIALIST Lyndsey Fagan NP LAB MICROBIOLOGY - GENERA L ORDERABLES Final Result Performing Organization Address City/[facility]/ZIP Co de Phone Number [facility] [place] [address] * (ABNORMAL) Urinalysis, microscopic only (08/03/2024 7:30 AM LABORATORY TECHNICAL SPECIALIST) WBC, ur 6-10(A) 0 - 5 /HPF RBC, ur 11-20(A) 0 - 2 /HPF [facility] Epithelial cells, squamous, ur 1-5 0 - 5 /HPF [facility] Bacteria, ur Trace(A) [facility] Culture Reflex Comment Reflex conditions for urine culture (WBC >10) not met. [facility] Urine, clean voided 08/03/2024 7:30 AM LABORATORY TECHNICAL SPECIALIST 08/03/2024 7:30 AM LABORATORY TECHNICAL SPECIALIST Lyndsey Fagan NP LAB URINE ORDERABLES Angeles l Result Performing Organization Address City/[facility] Co de Phone Number [facility] Department [place] [address] * Urine culture Urine, clean voided (08/03/2024 7:30 AM LABORATORY TECHNICAL SPECIALIST) Pathologist [facility] Report Final Report: No growth Urine, clean voided 08/03/2024 7:30 AM LABORATORY TECHNICAL SPECIALIST 08/03/2024 9:59 AM LABORATORY TECHNICAL SPECIALIST Narrative [facility] - 08/04/2024 11:14 AM LABORATORY TECHNICAL SPECIALIST Testing performed by [facility] Microbiology Laboratory ([phone]) Hermelindo Butler MD LAB MICROBIOLOG Y - GENERAL ORDERABLES Final Result Performing Organization Address City/[facility]/ZIP Co de Phone Number [facility] [place] [address] * Hepatitis C antibody (10/16/2021 9:50 AM CDT) Hep C Ab Nonreactive Nonreactive [facility] Comment:Antibodies to HCV no t detected. Does NOT exclude the possibility of recent exposure to HCV. Blood 10/16/2021 9:50 AM CDT 10/16/2021 11:22 AM CDT Hermelindo dupree MD LAB MICROBIOLOGY - GENERAL ORDERABLES Edited Result - Final [facility] [place] [address] from Last 3 Months or Most Recently Relevant to Health Maintenance Insurance MEDICARE [facility] Address: [facility] [address] [place] [address] [employer] SENIOR SUPPLEMENT MEDICARE [employer] [place]IOR [place] [address] MEDICARE [employer] SENIOR SUPPLEMENT Advance Directives For more information, please contact: [phone] Documents on File Type Date Recorded Patient Testing Director Expl anation ADVANCE DIRECTIVE 11/29/2017 11:05 AM FOX R OF HEAD OF TALENT MANAGEMENT ADVANCE DIRECTIVE 11/12/2017 3:59 PM POWER OF HEAD OF TALENT MANAGEMENT * Full Code (Latest Code Status on [...] 2:28 PM 05/31/2021 2:39 PM 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 Relationship Specialty Start Date End Date Jatin Gamble MD [address] [place] [address] PCP - General 10/07/16 Hermelindo Butler MD [address] [place] [address] Medical Oncologist[facility] Oncology 12/02/17 Roberto Rojo MD [facility] [address] [place] [address] Medical Oncologist[facility] Hematology and Oncology 12/02/17 Jatin Gamble MD [address] [place] [address] Referring Physician Internal Medicine 12/02/17 Lyndsey Fagan NP [address] [place] [address] Nurse Practitioner Medical Oncology 08/03/20 Erlin Servin MD [address] [place] [address] Consulting Physician Otolaryngology 10/04/22 [place] [address] [place] [address] Consulting Physician Urology 05/28/23 Salvador Norris MD [id number] [place] [address] Consulting Physician Infectious Diseases 09/15/24 Miscellaneous, Not In File 09/15/24
--- OUTSIDE RECORDS SUMMARY | 2024-10-12 15:41 | XMS_ITS | Referral Summary ---
Author Organization [facility] Address [address] [place] [address] Care Team Providers Care Blasting Worker Name Role Phone Jatin Gamble MD Primary Care Provider [phone] Hermelindo Butler MD Unavailable Roberto Rojo MD Unavailable [phone] Jatin Gamble MD Unavailable [phone] Lyndsey Fagan NP Unavailable Erlin Servin MD Unavailable Julian Valdez MD Unavailable Salvador Norris MD Unavailable Miscellaneous, Not In File Unavailable Unava ilable Encounters Date Type Department Care Team Description 10/10/2024 6:31 AM CDT - 10/10/2024 11:59 PM CDT Hospital Encounter [facility] [address] [place] [id number] Elevated prostate specific antigen (PSA) Discharge Disposition: Discharge to home or self care 10/07/2024 Orders Only [facility] Bone Marrow Transplant [address] [facility] [address] [place] [address] Hermelindo Packer MD 10/05/2024 Orders Only [facility] Scanning, Provider 10/05/2024 Orders Only [facility] Bone [facility]row Transplant [address] [facility] [address] [place] [address] Hermelindo Packer MD Multiple myeloma, remission status unspecified (HCC) (Primary Dx) 09/28/2024 9:30 AM CDT Infusion [facility] [address] [facility] Floor 6 [place] [address] Multiple myeloma in relapse (HCC) (Primary Dx); Multiple myeloma in remission (HCC) 09/28/2024 7:30 AM CDT Clinical Support [facility] Lab Collection [facility] Floor [address] [place] [address] Multiple myeloma in remission (HCC); Multiple myeloma in relapse (HCC); Multiple myeloma, remission status unspecified (HCC) 09/28/2024 8:30 AM CDT Office Visit [facility] Marrow Transplant [address] [place] [phone] Lyndsey Fagan NP Multiple myeloma, remission status unspecified (HCC) (Primary Dx); Multiple myeloma in remission (HCC); Multiple myeloma in relapse (HCC) 09/15/2024 Orders Only [facility] 1 [place] [address] Preeti Wayne RPh 09/11/2024 1:43 AM CDT - 09/15/2024 5:22 PM CDT Hospital [address] [phone] Emory Santana MD McMinn, Harrison Charles, MD Madej, Adam Benjamin, DO Oliguria (Primary Dx); Bacteremia Discharge Disposition: Discharge to home, home health skilled care 09/10/2024 Orders Only Urology Yesika Capone PA Elevated prostate specific antigen (PSA) (Primary Dx) 09/07/2024 Orders Only [facility] Transplant [address] [place] [phone] Hermelindo Packer MD 09/06/2024 Orders Only [facility] Transplant [address] [place] [address] Lyndsey Fagan NP 08/31/2024 8:45 AM CDT Clinical Support [facility] [address] [facility] [address] [place] [address] Multiple myeloma in relapse (HCC); Multiple myeloma not having achieved remission (HCC); Multiple myeloma, remission status unspecified (HCC) 08/31/2024 10:00 AM CDT Infusion [facility] [address] [facility] Floor 6 [place] [address] Multiple myeloma in relapse (HCC) (Primary Dx); Multiple myeloma in remission (HCC) 08/31/2024 9:00 AM CDT Office Visit [facility]row Transplant [address] [place] [phone] Hermelindo Packer MD Multiple myeloma in relapse (HCC) (Primary Dx); Multiple myeloma in remission (HCC) 08/31/2024 8:15 AM CDT Clinical Support [facility] Oncology Lab [facility] [address] [address] Multiple myeloma not having achieved remission (HCC); Multiple myeloma in remission (HCC) 08/30/2024 Orders Only [facility] Scanning, Provider 08/27/2024 Documentation Nephrology Ani Anne LCSW 08/27/2024 Orders Only [facility] Transplant [address] [place] [phone] Hermelindo Packer MD Multiple myeloma not having achieved remission (HCC) (Primary Dx); JOHN (acute kidney injury) 08/23/2024 11:13 PM CDT - 08/26/2024 4:50 PM CDT Hospital Encounter [address] [phone] Hermelindo Packer MD [place], Thabet J.M., MD JOHN (acute kidney injury) (Primary Dx) Discharge Disposition: Discharge to home or self care 08/25/2024 6:50 AM CDT Ancillary Procedure [facility] Vascular Lab IP [address] [facility] [address] [place] [address] 08/23/2024 7:10 PM CDT - 08/23/2024 11:59 PM CDT Hospital Encounter [facility] Radiology 1 [facility] [place] [address] Discharge Disposition: Discharge to home or self care 08/23/2024 Orders Only [address] [phone] Hermelindo Packer MD 08/23/2024 Orders Only [facility] Bone Marrow Transplant [address] [place] [phone] Hermelindo Packer MD Multiple myeloma, remission status unspecified (HCC) (Primary Dx) 08/23/2024 5:24 PM CDT - 08/23/2024 11:59 PM CDT Hospital Encounter [facility] [address] [place] [address] Hermelindo Packer MD Elevated serum creatinine (Primary Dx); Multiple myeloma, remission status unspecified (HCC) Discharge Disposition: Discharge to home or self care 08/20/2024 Orders Only [facility] Scanning, Provider 08/10/2024 Orders Only [facility] Scanning, Provider 08/06/2024 Telephone [facility] Transplant [address] [place] [phone] Lyndsey Fagan NP 08/06/2024 Orders Only [facility]row Transplant [address] [place] [phone] Lyndsey Fagan NP Multiple myeloma, remission status unspecified (HCC) (Primary Dx) 08/06/2024 1:45 PM MACHINE BRUSHER Clinical Support [facility] Lab Collection [address] [facility] [address] [place] [address] 08/06/2024 1:00 PM MACHINE BRUSHER - 08/06/2024 11:59 PM MACHINE BRUSHER Hospital Encounter [facility] Radiology 1 [facility] [place] [address] Multiple myeloma, remission status unspecified (HCC) Discharge Disposition: Discharge to home or self care 08/06/2024 Orders Only [facility] Bone Marrow Transplant [address] [facility] Floor 6 [place] [address] Lyndsey Fagan NP JOHN (acute kidney injury) (Primary Dx) 08/06/2024 Orders Only [facility]row Transplant [address] [facility] Floor [address] [place] [address] Ligia inHermelindo MD Multiple myeloma, remission status unspecified (HCC) (Primary Dx) 08/06/2024 7:15 AM MACHINE BRUSHER Clinical Support [facility] [address] [facility] Floor [address] [place] [address] Multiple myeloma in relapse (HCC) (Primary Dx); Multiple myeloma, remission status unspecified (HCC); JOHN (acute kidney injury) 08/06/2024 8:00 AM MACHINE BRUSHER Infusion [facility] [address] [place] [address] Multiple myeloma not having achieved remission (HCC) (Primary Dx); Hypogammaglobulinem ia 08/03/2024 Orders Only [facility]row Transplant [address] [facility] Floor [address] [place] [address] Ligia inHermelindo MD 08/03/2024 Orders Only [facility]row Transplant [address] [phone] Ligia inHermelindo MD 08/03/2024 Orders Only [facility]row Transplant [address] [facility] Floor 6 [place] [address] Ligia inHermelindo MD 08/03/2024 9:30 AM MACHINE BRUSHER Infusion [facility] [address] [place] [address] Multiple myeloma in relapse (HCC) (Primary Dx); Multiple myeloma in remission (HCC) 08/03/2024 7:30 AM MACHINE BRUSHER Clinical Support [facility] - Lab Collection [facility]0 [facility] [address] [place] [address] Multiple myeloma in remission (HCC); Multiple myeloma, remission status unspecified (HCC); Multiple myeloma in relapse (HCC) 08/03/2024 8:30 AM MACHINE BRUSHER Office Visit [facility]row Transplant [address] [place] [phone] Hermelindo Packer MD Multiple myeloma, remission status unspecified (HCC) (Primary Dx); Multiple myeloma in remission (HCC); Multiple myeloma in relapse (HCC) 08/02/2024 Telephone [facility] Transplant [address] [place] [address] Lyndsey Fagan NP 07/30/2024 Telephone [facility] Transplant [address] [place] [phone] Hermelindo Packer MD 07/27/2024 Telephone [facility] Transplant [address] [place] [phone] Hermelindo Packer MD 07/26/2024 Orders Only [facility] Transplant [address] [place] [phone] Hermelindo Packer MD 07/26/2024 Orders Only [facility] Transplant [address] [place] [phone] Hermelindo Packer MD 07/26/2024 Telephone [facility]plant [address] [place] [phone] Margaret Kay RMA Medical Question/Miscellane ous from Last 3 Months Allergies Active Allergy [...] Inpatient Care Coordination Overview Diagnosis [place] Floor [address] Treatment Plan Clinical Trial [id number] Tenebio Reason for Admission JOHN Transplant/IEC Planning BMT/IEC [...] Medical Assistants Post-Discharge Follow-Up Living Situation/Distance from [place], [place] (45 min) Caregiver Self, Lab/Transfusion Frequency [...] is a risk of orbital injury and TECHNOLOGY ADOPTION MANAGER injury which could result in blindness [...] this. Assessment & Plan (07/09/2022 7:42 PM MACHINE BRUSHER): I talked with him quite a bit [...] weeks. Assessment & Plan (05/26/2022 4:16 PM MACHINE BRUSHER): He does have pretty significant sinusitis and [...] day. Assessment & Plan (05/26/2022 4:17 PM MACHINE BRUSHER): It is very possible that his cough could be due to sinusitis also. Hopefully that will continue to improve as we treat. He understands. Immunocompromised 11/13/2021 Multiple myeloma not having achieved remission 0 10/28/2021 Cancer Staging:Clinical stage from 10/16/2021:RISS Stage II(Fatj-3-murfadttvanbm (mg/L): 3.7, Albumin (g/dL): 4.2, ISS: Stage [...] and Dexamethasone in June 2021 Clinical trial [id number] initiated on 10/29/21; C46D1 08/03/24. BMT following [...] he got a TTE on 10/19 at [place] however unclear why not currently in the system - May need to repeat TTE prior to treatment if results unavailable - Continue OI ppx with acyclovir 400mg BID - Begin trial [id number], a Bispecific Antibody Targeting BCMA treatment - [...] he got a TTE on 10/19 at [place] however unclear why not currently in the system - May need to repeat TTE prior to treatment if results unavailable - Continue OI ppx with acyclovir 400mg BID - Begin trial [id number], a Bispecific Antibody Targeting BCMA treatment - [...] BID Assessment & Plan (05/31/2021 10:51 AM MACHINE BRUSHER): Continue home pepcid, asx Renal mass 05/30/2021 Assessment & Plan (05/31/2021 10:51 AM MACHINE BRUSHER): Admitted for observation after L renal mass [...] 07/17/2023 Assessment & Plan (05/31/2021 10:52 AM MACHINE BRUSHER): Follows with oncology on daratumumab monotherapy -counts [...] blood in urine Follow up pathology from lnfygalxa-deo-ojdbpwhl high-grade papillary urothelial carcinoma (grade 2) --follow [...] blood in urine Follow up pathology from chociugte-zwg-yzzuvtmn high-grade papillary urothelial carcinoma (grade 2) --follow [...] supplementation Assessment & Plan (05/31/2021 10:51 AM MACHINE BRUSHER): Stable on home losartan, nebivolol, triamterene-HCTZ Secondary [...] drink = 0.6 oz pur e alcohol) [facility] Utilities Answer Date Recorded In the past 12 months has th e [employer], gas, oil, or water [employer] threatened to shut off services in your [...] week 09/13/2024 How often do you attend [facility] or mormonism services? More than 4 times per year 09/13/2024 Do you belong to any clubs o r organizations such as roman catholic groups, unions, fraternal or athletic groups, or [...] any time in the past 12 m [facility], were you homeless or living in a care home (including now)? No 09/13/2024 Personal Safety Answer Date Recorded Have you ever been in or are you currently in a harmful physical or emotional relationship or is someone making you feel afraid or unsafe? Denies 09/11/2024 Sex and Gender Information Value Date Recorded Sex Assigned at Not on file Legal Sex 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 MACHINE BRUSHER Gender Identity Not on file Sexual Orientation [...] 10/10/2024 6:44 AM CDT Plan of Treatment Not on file Medical Devices Implanted Type Area Wood Heel Finisher Device Identifier Shelf Expiration Date Model / [...] AM CDT Multiple myeloma in relapse (HCC) SD INSJ NON-TUNNELED CENTRAL VENOUS CATH AGE 7 [...] Read Routine (OP Routine) 08/06/2024 2:42 PM MACHINE BRUSHER Multiple myeloma, remission status unspecified (HCC) URINALYSIS, MICROSCOPIC ONLY Routine 08/06/2024 9:19 AM MACHINE BRUSHER JOHN (acute kidney injury) PROTEIN / CREATININE RATIO, URINE, RANDOM Routine 08/06/2024 9:19 AM MACHINE BRUSHER JOHN (acute kidney injury) URINALYSIS AND REFLEX TO MICROSCOPIC Routine 08/06/2024 9:19 AM MACHINE BRUSHER JOHN (acute kidney injury) EGFR Routine 08/06/2024 7:43 AM MACHINE BRUSHER Multiple myeloma, remission status unspecified (HCC) DIFFERENTIAL AUTO Routine 08/06/2024 7:4 3 AM MACHINE BRUSHER Multiple myeloma, remission status unspecified (HCC) LACTATE DEHYDROGENASE Routine 08/06/2024 7:43 AM MACHINE BRUSHER Multiple myeloma, remission status unspecified (HCC) CBC WITH AUTO DIFFERENTIAL Routine 08/06/2024 7:43 AM MACHINE BRUSHER Multiple myeloma, remission status unspecified (HCC) COMPREHENSIVE METABOLIC PANEL Routine 08/06/2024 7:43 AM MACHINE BRUSHER Multiple myeloma, remission status unspecified (HCC) LIPID PANEL Routine 08/06/2024 7:43 AM MACHINE BRUSHER Multiple myeloma, remission status unspecified (HCC) PSA DIAGNOSTIC Routine 08/06/2024 7:43 AM MACHINE BRUSHER Multiple myeloma, remission status unspecified (HCC) PROTIME-INR STAT 08/03/2024 9:21 AM MACHINE BRUSHER Multiple myeloma in relapse (HCC) APTT STAT 08/03/2024 9:21 AM MACHINE BRUSHER Multiple myeloma in relapse (HCC) MAGNESIUM STAT 08/03/2024 7:40 AM MACHINE BRUSHER Multiple myeloma in relapse (HCC) GAMMA GT STAT 08/03/2024 7:40 AM MACHINE BRUSHER Multiple myeloma in relapse (HCC) EGFR Routine 08/03/2024 7:40 AM MACHINE BRUSHER Multiple myeloma, remission status unspecified (HCC) DIFFERENTIAL AUTO Routine 08/03/2024 7:4 0 AM MACHINE BRUSHER Multiple myeloma, remission status unspecified (HCC) CBC WITH AUTO DIFFERENTIAL Routine 08/03/2024 7:40 AM MACHINE BRUSHER Multiple myeloma, remission status unspecified (HCC) COMPREHENSIVE METABOLIC PANEL Routine 08/03/2024 7:40 AM MACHINE BRUSHER Multiple myeloma, remission status unspecified (HCC) IGA Routine 08/03/2024 7:40 AM MACHINE BRUSHER Multiple myeloma, remission status unspecified (HCC) IGG Routine 08/03/2024 7:40 AM MACHINE BRUSHER Multiple myeloma, remission status unspecified (HCC) IGM Routine 08/03/2024 7:40 AM MACHINE BRUSHER Multiple myeloma, remission status unspecified (HCC) IMMUNOGLOBULIN FREE LIGHT CHAINS Routine 08/03/2024 7:40 AM MACHINE BRUSHER Multiple myeloma, remission status unspecified (HCC) LACTATE DEHYDROGENASE Routine 08/03/2024 7:40 AM MACHINE BRUSHER Multiple myeloma, remission status unspecified (HCC) PROTEIN ELECTROPHORESIS, WITH REFLEX, SERUM Routine 08/03/2024 7:40 AM MACHINE BRUSHER Multiple myeloma, remission status unspecified (HCC) IMMUNOTYPING Routine 08/03/2024 7:40 AM MACHINE BRUSHER Multiple myeloma, remission status unspecified (HCC) HEMOGLOBIN A1C Routine 08/03/2024 7:40 AM MACHINE BRUSHER Multiple myeloma, remission status unspecified (HCC) URINALYSIS, MICROSCOPIC ONLY Routine 08/03/2024 7:30 AM MACHINE BRUSHER Multiple myeloma, remission status unspecified (HCC) URINE CULTURE Routine 08/03/2024 7:30 AM MACHINE BRUSHER URINALYSIS AND REFLEX TO MICROSCOPIC AND CULTURE Routine 08/03/2024 7:30 AM MACHINE BRUSHER Multiple myeloma, remission status unspecified (HCC) HEPATITIS [...] Organization Address City/[facility] Co de Phone Number [facility] Department [place] [address] * (ABNORMAL) eGFR (09/28/2024 7:43 AM CDT) Pathologist [facility] eGFR 40(L) >=60 mL/min/1. 73 m2 Comment: [...] [facility]/ZIP Co de Phone Number [facility] [place] [address] * (ABNORMAL) eGFR (09/28/2024 7:43 AM CDT) Pathologist [facility] eGFR 40(L) >=60 mL/min/1. 73 m2 Comment: [...] LAB BLOOD ORDER ELANA Final Result [facility] Department [place] [address] * (ABNORMAL) Differential, auto (09/28/2024 7:43 AM CDT) [facility] Neutrophil abs 5.12 1.50 - 6.50 K/cumm Comment:Testing performed by : [facility] Heme Lab, [address] [place] [phone] Lymphocyte abs 0.72(L) 0.80 - 3.30 K/cumm MT SUAREZ Comment:Testing performed by : [facility] Heme Lab, [address] [place] [phone] Monocyte abs 0.50 0.20 - 0.80 K/cumm C[facility]ER [facility] Comment:Testing performed by : [facility] Heme Lab, [address] [place] [phone] Eosinophil abs 0.15 0.00 - 0.50 K/cumm [facility] Comment:Testing performed by : [facility] Heme Lab, [address] [place] [phone] Basophil abs 0.04 0.00 - 0.10 K/cumm [facility] Comment:Testing performed by : [facility] Heme Lab, [address] [place] [phone] Neutrophil pct 78.4 % [facility] Comment: Interpretive Data Percent cell count reference ranges are not reported, since discordance with absolute values may lead to misinterpretation of CBC data. Current Interpretive Data was last revised on 2017. Testing performed by: [facility], [address] [place] [phone] Lymphocyte pct 11.0 % [facility] Comment: Interpretive Data Percent cell count reference ranges are not reported, since discordance with absolute values may lead to misinterpretation of CBC data. Current Interpretive Data was last revised on 2017. Testing performed by: [facility], [address] [place] [phone] Monocyte pct 7.7 % [facility] Comment: Interpretive Data Percent cell count reference ranges are not reported, since discordance with absolute values may lead to misinterpretation of CBC data. Current Interpretive Data was last revised on 2017. Testing performed by: [facility] Heme Lab, [address] [place] [phone] Eosinophil pct 2.3 % [facility] Comment: Interpretive Data Percent cell count reference ranges are not reported, since discordance with absolute values may lead to misinterpretation of CBC data. Current Interpretive Data was last revised on 2017. Testing performed by: [facility] Heme Lab, [address] [place] [phone] Basophil pct 0.7 % [facility] Comment: Interpretive Data Percent cell count reference ranges are not reported, since discordance with absolute values may lead to misinterpretation of CBC data. Current Interpretive Data was last revised on 2017. Testing performed by: [facility] Heme Lab, [facility] [place] [address] Blood 09/28/2024 7:43 AM CDT 09/28/2024 8:00 AM CDT Hermelindo Butler MD LAB BLOOD ORDER ELANA Final Result [facility] Department [place] [address] * (ABNORMAL) Immunoglobulin free light chains (09/28/2024 7:43 AM CDT) Leshara/Lambda ratio [facility] See Comment 0.26 - 1.65 Comment: Unable to calculate exact result. Interpretive Data The Binding Site FreeLite assay procedure was used. Results from different manufacturers or methods may not be comparable. Serial testing should be performed using the same methods and instrumentation. Current Interpretive Data was last revised on 2023. Leshara free light chain [facility] <0.06(L) 0.33 - 1.94 mg/dL [facility] Comment: Interpretive Data The Binding Site FreeLite assay procedure was used. Results from different manufacturers or methods may not be comparable. Serial testing should be performed using the same methods and instrumentation. Current Interpretive Data was last revised on 2023. Lambda free light chain [facility] <0.14(L) 0.57 - 2.63 mg/dL [facility] Comment: Interpretive Data The Binding Site FreeLite assay procedure was used. Results from different manufacturers or methods may not be comparable. Serial testing should be performed using the same methods and instrumentation. Current Interpretive Data was last revised on 2023. Blood 09/28/2024 7:43 AM CDT 09/28/2024 9:50 AM CDT Hermelindo Butler MD LAB BLOOD ORDER ELNAA Final Result [facility] Department [place] [address] * (ABNORMAL) CBC with auto differential (09/28/2024 7:43 AM CDT) WBC 6.53 3.80 - 9.90 K/cumm Comment:Testing performed by : [facility] Heme Lab, [address] [place] [address] Hgb 11.5(L) 13.0 - 17.5 g/dL CERNER [facility] Comment:Testing performed by : [facility] Heme Lab, [address] [place] [address] Hct 34.4(L) 38.9 - 50.3 % CERNER [facility]J Comment:Testing performed by : [facility] Heme Lab, [address] [place] [address] Plt 229 150 - 400 K/cumm CERNER [facility]J Comment:Testing performed by : [facility] Heme Lab, [address] [place] [address] MPV 7.0 6.8 - 10.4 fL CERNER [facility] Comment:Testing performed by : [facility] Heme Lab, [address] [place] [address] RBC 3.61(L) 4.30 - 5.80 M/cumm CERNER [facility]J Comment:Testing performed by : [facility] Heme Lab, [address] [place] [address] MCV 95.2 81.3 - 96.4 fL CERNER [facility]J Comment:Testing performed by : [facility] Heme Lab, [address] [place] [address] MCH 31.7 27.1 - 33.3 pg CERNER [facility] Comment:Testing performed by : [facility] Heme Lab, [address] [place] [address] MCHC 33.3 32.3 - 35.7 g/dL CERNER [facility]J Comment:Testing performed by : [facility] Heme Lab, [address] [place] [address] RDW CV 15.6(H) 11.1 - 14.9 % CERNER [facility]J Comment:Testing performed by : [facility] Heme [facility], [address] [place] [id number] NRBC abs 0.00 0.00 - 0.01 K/cumm [facility] Comment:Testing performed by : [facility], [address] [place] [phone] Blood 09/28/2024 7:43 AM CDT 09/28/2024 8:00 AM CDT Hermelindo Butler MD LAB BLOOD ORDER ELANA Final Result Performing Organization Address [facility] Co de Phone Number [facility] [place] [employer] [address] * aPTT (09/28/2024 7:43 AM CDT) aPTT [...] ORDER ELANA Final Result Performing Organization Address [facility] de Phone Number [facility] [place] [employer] [address] * Protime-INR (09/28/2024 7:43 AM CDT) PT 11.9 9.7 - 13.0 sec INR 1.10 0.90 - 1.20 [facility] Comment: Interpretive data Oral anticoagulant therapeutic ranges: [...] [facility]/ZIP Co de Phone Number MT [facility] Department [place] [address] * (ABNORMAL) Protein electrophoresis with reflex, serum with interpretation (09/28/2024 7:43 AM CDT) [facility] Protein, sr 5.6(L) 6.2 - 8.2 g/dL Albumin 3.7 3.2 - 5.0 g/dL [facility] Alpha-1 globulin 0.4 0.2 - 0.4 g/dL [facility] Alpha-2 globulin 0.8 0.5 - 1.0 g/dL [facility] Beta-1 globulin 0.4 0.3 - 0.6 g/dL [facility] Beta-2 globulin 0.2 0.2 - 0.6 g/dL [facility] Gamma globulin 0.1(L) 0.5 - 1.7 g/dL [facility] SPEP interp Please see comment [facility] Comment: No apparent monoclonal peak Decreased gamma globulins Electrophoretic pattern appears similar to previous sample 09-01-24 See immunotyping for further information Reviewed and signed by Ivan Sims MD, PhD 09/29/2024 Blood 09/28/2024 7:43 AM CDT 09/28/2024 9:50 AM CDT Hermelindo Butler MD LAB BLOOD ORDER ELANA Final Result Performing Organization Address City/[facility]/ZIP Co de Phone Number MT [facility] Department [place] [address] * Magnesium (09/28/2024 7:43 AM CDT) [facility] Magnesium 2.2 1.4 - 2.5 mg/dL Blood 09/28/2024 7:43 AM CDT 09/28/2024 8:03 AM CDT Hermelindo Butler MD LAB BLOOD ORDER ELANA Final Result Performing Organization Address City/[facility] Co de Phone Number [facility] [place] [address] * Lactate dehydrogenase (LD) (09/28/2024 7:43 AM CDT) [facility] Lactate dehydrogenase (LDH) 132 100 - 250 Units/L Blood 09/28/2024 7:43 AM CDT 09/28/2024 8:03 AM CDT Hermelindo Butler MD LAB BLOOD ORDER ELANA Final Result Performing Organization Address [facility] de Phone Number [facility] [place] [employer] [address] * Gamma GT (09/28/2024 7:43 AM CDT) [facility] GGT 28 10 - 50 Units/L Blood 09/28/2024 7:43 AM CDT 09/28/2024 8:03 AM CDT Hermelindo Butler MD LAB BLOOD ORDER ELANA Final Result Performing Organization Address City/[facility] de Phone Number [facility] [place] [address] * (ABNORMAL) IgA (09/28/2024 7:43 AM CDT) [facility] Immunoglobulin A <50(L) 70 - 400 mg/dL Blood 09/28/2024 7:43 AM CDT 09/28/2024 8:24 AM CDT Hermelindo Butler MD LAB BLOOD ORDER ELANA Final Result Performing Organization Address City/[facility] Co de Phone Number [facility] [place] [address] * (ABNORMAL) IgM (09/28/2024 7:43 AM CDT) [facility] Immunoglobulin M <25(L) 40 - 230 mg/dL Blood 09/28/2024 7:43 AM CDT 09/28/2024 8:24 AM CDT Hermelindo Butler MD LAB BLOOD ORDER ELANA Final Result Performing Organization Address [facility] de Phone Number [facility] [place] [address] * (ABNORMAL) IgG (09/28/2024 7:43 AM CDT) [facility] Immunoglobulin G <300(L) 700 - 1,600 mg/dL Blood 09/28/2024 7:43 AM CDT 09/28/2024 8:24 AM CDT Hermelindo Butler MD LAB BLOOD ORDER ELANA Final Result Performing Organization Address [facility] [place] [address] * (ABNORMAL) Comprehensive metabolic panel (09/28/2024 7:43 AM CDT) [facility] Sodium 143 135 - 145 mmol/L Potassium, pl 4.1 3.3 - 4.9 mmol/L [facility] Chloride 106 97 - 110 mmol/L [facility] CO2 27 22 - 32 mmol/L [facility] Anion gap 10 2 - 15 mmol/L [facility] BUN 30(H) 6 - 25 mg/dL [facility] Creatinine 1.80(H) 0.80 - 1.30 mg/dL [facility] Glucose 106 70 - 199 mg/dL [facility] Comment: Interpretive Data Fasting glucose >/= 126 [...] 2022. Calcium 9.6 8.5 - 10.3 mg/dL [facility] Bilirubin, total 0.5 0.1 - 1.2 mg/dL [facility] Protein, pl 6.2(L) 6.5 - 8.5 g/dL [facility] Albumin 3.9 3.5 - 5.0 g/dL [facility] Alk phos 62 40 - 130 Units/L [facility] ALT 12 7 - 55 Units/L [facility] AST 13 10 - 50 Units/L [facility] Blood 09/28/2024 7:43 AM CDT 09/28/2024 8:02 AM CDT Hermelindo Butler MD LAB BLOOD ORDER ELANA Final Result [facility] Department [place] [address] * (ABNORMAL) Comprehensive metabolic panel (09/28/2024 7:43 AM CDT) Sodium 143 135 - 145 mmol/L Potassium, pl 4.1 3.3 - 4.9 mmol/L [facility] Chloride 106 97 - 110 mmol/L [facility] CO2 27 22 - 32 mmol/L [facility] Anion gap 10 2 - 15 mmol/L [facility] BUN 31(H) 6 - 25 mg/dL [facility] Creatinine 1.80(H) 0.80 - 1.30 mg/dL [facility] Glucose 105 70 - 199 mg/dL [facility] Comment: Interpretive Data Fasting glucose >/= 126 [...] 2022. Calcium 9.6 8.5 - 10.3 mg/dL [facility] Bilirubin, total 0.5 0.1 - 1.2 mg/dL [facility] Protein, pl 6.1(L) 6.5 - 8.5 g/dL [facility] Albumin 4.0 3.5 - 5.0 g/dL [facility] Alk phos 61 40 - 130 Units/L [facility] ALT 13 7 - 55 Units/L [facility] AST 13 10 - 50 Units/L [facility] Blood 09/28/2024 7:43 AM CDT 09/28/2024 8:03 AM CDT Hermelindo Butler MD LAB BLOOD ORDER ELANA Final Result [facility] Department [place] [address] * SD INSJ NON-TUNNELED CENTRAL VENOUS CATH AGE 5 YR/> (09/15/2024 1:20 PM CDT) Narrative Lianna Denny PA - 09/15/2024 1:20 PM CDT Lianna Denny PA 09/15/2024 1:40 PM Midline Insertion Date/Time: 09/15/2024 1:20 PM Performed by: Lianna Denny PA Authorized by: Lianna Denny PA [place] Protocol: RN Notified of Procedure: yes Informed consent: Risks, benefits, alternatives discussed and patient/solar 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 representative/guardian agrees and accepts Patient's stated [...] Santana MD LAB BLOOD ORDERABLES Final Result [facility] [address] Department [place] [address] * (ABNORMAL) CBC without differential (09/15/2024 3:52 AM CDT) WBC 6.46 3.80 - 9.90 K/cumm Hgb 10.1(L) 13.0 - 17.5 g/dL [facility] Hct 31.4(L) 38.9 - 50.3 % [facility] Plt 149(L) 150 - 400 K/cumm [facility] MPV 9.2 9.1 - 12.3 fL [facility] RBC 3.20(L) 4.30 - 5.80 M/cumm [facility] MCV 98.1(H) 81.3 - 96.4 fL [facility] MCH 31.6 27.1 - 33.3 pg [facility] MCHC 32.2(L) 32.3 - 35.7 g/dL [facility] RDW CV 14.9 11.1 - 14.9 % [facility] RDW SD 54.3(H) 35.7 - 48.1 fL [facility] NRBC abs 0.00 0.00 - 0.01 K/cumm [facility] Blood 09/15/2024 3:52 AM CDT 09/15/2024 4:02 AM CDT us Emory Santana MD LAB BLOOD ORDERABLES Final Result Performing Organization Address City/[facility]/ZIP Co de Phone Number [facility] [address] Department [employer] [place] [place] [address] * (ABNORMAL) Basic metabolic panel (09/15/2024 3:52 AM CDT) [facility] Sodium 143 135 - 145 mmol/L Potassium, pl 3.2(L) 3.3 - 4.9 mmol/L [facility] Chloride 105 97 - 110 mmol/L [facility] CO2 28 22 - 32 mmol/L [facility] Anion gap 10 2 - 15 mmol/L [facility] BUN 12 6 - 25 mg/dL [facility] Creatinine 1.45(H) 0.80 - 1.30 mg/dL [facility] Glucose 110 70 - 199 mg/dL [facility] Comment: Interpretive Data Fasting glucose [...] 2022. Calcium 8.2(L) 8.5 - 10.3 mg/dL [facility] Blood 09/15/2024 3:52 AM CDT 09/15/2024 4:02 AM CDT us Emory Santana MD LAB BLOOD ORDERABLES Final Result Performing Organization Address [facility]/ZIP Co de Phone Number [facility] [address] [place] [address] * (ABNORMAL) eGFR (09/14/2024 2:25 AM CDT) [facility] eGFR 48(L) >=60 mL/min/1. 73 m2 [...] Santana MD LAB BLOOD ORDERABLES Final Result [facility] [address] Department of Laboratories [place], [place] [id number] * (ABNORMAL) CBC without differential (09/14/2024 2:25 AM CDT) [facility] WBC 5.62 3.80 - 9.90 K/cumm Hgb 10.0(L) 13.0 - 17.5 g/dL [facility] Hct 31.1(L) 38.9 - 50.3 % [facility] Plt 163 150 - 400 K/cumm [facility] MPV 9.3 9.1 - 12.3 fL [facility] RBC 3.15(L) 4.30 - 5.80 M/cumm [facility] MCV 98.7(H) 81.3 - 96.4 fL [facility] MCH 31.7 27.1 - 33.3 pg [facility] MCHC 32.2(L) 32.3 - 35.7 g/dL [facility] RDW CV 15.4(H) 11.1 - 14.9 % [facility] RDW SD 55.6(H) 35.7 - 48.1 fL [facility] NRBC abs 0.00 0.00 - 0.01 K/cumm [facility] Blood 09/14/2024 2:25 AM CDT 09/14/2024 2:44 AM CDT us Emory Santana MD LAB BLOOD ORDERABLES Final Result [facility] [address] Department [place] [address] * (ABNORMAL) Basic metabolic panel (09/14/2024 2:25 AM CDT) Sodium 146(H) 135 - 145 mmol/L Potassium, pl 3.3 3.3 - 4.9 mmol/L [facility] Chloride 108 97 - 110 mmol/L [facility] CO2 27 22 - 32 mmol/L [facility] Anion gap 11 2 - 15 mmol/L [facility] BUN 18 6 - 25 mg/dL [facility] Creatinine 1.53(H) 0.80 - 1.30 mg/dL [facility] Glucose 116 70 - 199 mg/dL [facility] Comment: Interpretive Data Fasting glucose [...] 2022. Calcium 8.1(L) 8.5 - 10.3 mg/dL [facility] Blood 09/14/2024 2:25 AM CDT 09/14/2024 2:44 AM CDT us Emory Santana MD LAB BLOOD ORDERABLES Final Result Performing Organization Address [facility] Co de Phone Number [facility] [address] Department [place] [employer] [address] * (ABNORMAL) eGFR (09/13/2024 3:21 AM CDT) [...] [facility]/ZIP Co de Phone Number [facility] [address] [place] [address] * (ABNORMAL) CBC without differential (09/13/2024 3:21 AM CDT) WBC 5.46 3.80 - 9.90 K/cumm Hgb 10.1(L) 13.0 - 17.5 g/dL [facility] Hct 30.8(L) 38.9 - 50.3 % [facility] Plt 160 150 - 400 K/cumm [facility] MPV 9.7 9.1 - 12.3 fL [facility] RBC 3.15(L) 4.30 - 5.80 M/cumm [facility] MCV 97.8(H) 81.3 - 96.4 fL [facility] MCH 32.1 27.1 - 33.3 pg [facility] MCHC 32.8 32.3 - 35.7 g/dL [facility] RDW CV 15.7(H) 11.1 - 14.9 % [facility] RDW SD 56.4(H) 35.7 - 48.1 fL [facility] NRBC abs 0.00 0.00 - 0.01 K/cumm [facility] Blood 09/13/2024 3:21 AM CDT 09/13/2024 3:48 AM CDT us Emory Santana MD LAB BLOOD ORDERABLES Final Result [facility] [address] Department [place] [address] * (ABNORMAL) Basic metabolic panel (09/13/2024 3:21 AM CDT) Sodium 141 135 - 145 mmol/L Potassium, pl 3.3 3.3 - 4.9 mmol/L [facility] Chloride 105 97 - 110 mmol/L [facility] CO2 24 22 - 32 mmol/L [facility] Anion gap 12 2 - 15 mmol/L [facility] BUN 24 6 - 25 mg/dL [facility] Creatinine 1.55(H) 0.80 - 1.30 mg/dL [facility] Glucose 115 70 - 199 mg/dL [facility] Comment: Interpretive Data Fasting glucose [...] 2022. Calcium 8.1(L) 8.5 - 10.3 mg/dL [facility] Blood 09/13/2024 3:21 AM CDT 09/13/2024 3:48 AM CDT us Emory Santana MD LAB BLOOD ORDERABLES Final Result [facility] [address] Department [place] [address] * TRANSTHORACIC ECHO (TTE) COMPLETE W DOPPLER/CF WO CONTRAST (09/12/2024 2:39 PM CDT) LV EF 55-60 % CONS SCIMAGE Anatomical Region Laterality Modality Ultrasound 09/12/2024 12:1 1 PM CDT Narrative 09/12/2024 2:42 PM CDT [facility] [address] [place] [address] ECHOCARDIOGRAM Patient Name: BUFFY VALLECarl : 1950 (73y 9m) Gender: M Study Date: 09/12/2024 12:11:05 PM Ht(Inch): 69 Wt(Lb): 275.57 BSA: 2.47 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: TC Location: [id number] Order Provider: ANUP SIN BMI: 40.69 BP: [...] Choco Thomas MD - 09/12/2024 [place] [address] [place] [address] ECHOCARDIOGRAM Patient Name: BUFFY VALLECarl : 1950 (73y 9m) Gender: M Study Date: 09/12/2024 12:11:05 PM Ht(Inch): 69 Wt(Lb): 275.57 BSA: 2.47 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: TC Location: [address] Order Provider: ANUP SIN BMI: 40.69 BP: 128/72 Ref Provider: MENDYANUP Dupree - PROCEDURES: Echocardiographic Report: Transthoracic Echocardiogram with [...] Santana MD LAB BLOOD ORDERABLES Final Result [facility] [address] Department [place] [address] * (ABNORMAL) CBC without differential (09/12/2024 3:14 AM CDT) WBC 7.12 3.80 - 9.90 K/cumm Hgb 10.3(L) 13.0 - 17.5 g/dL [facility] Hct 31.8(L) 38.9 - 50.3 % [facility] Plt 150 150 - 400 K/cumm [facility] MPV 9.5 9.1 - 12.3 fL [facility] RBC 3.23(L) 4.30 - 5.80 M/cumm [facility] MCV 98.5(H) 81.3 - 96.4 fL [facility] MCH 31.9 27.1 - 33.3 pg [facility] MCHC 32.4 32.3 - 35.7 g/dL [facility] RDW CV 15.9(H) 11.1 - 14.9 % [facility] RDW SD 57.1(H) 35.7 - 48.1 fL [facility] NRBC abs 0.00 0.00 - 0.01 K/cumm [facility] Blood 09/12/2024 3:14 AM CDT 09/12/2024 3:35 AM CDT us Emory Santana MD LAB BLOOD ORDERABLES Final Result Performing Organization Address City/[facility]/ZIP Co de Phone Number [facility] [address] Department [place] [address] * (ABNORMAL) Basic metabolic panel (09/12/2024 3:14 AM CDT) Sodium 139 135 - 145 mmol/L Potassium, pl 3.3 3.3 - 4.9 mmol/L [facility] Chloride 101 97 - 110 mmol/L [facility] CO2 23 22 - 32 mmol/L [facility] Anion gap 15 2 - 15 mmol/L [facility] BUN 31(H) 6 - 25 mg/dL [facility] Creatinine 1.96(H) 0.80 - 1.30 mg/dL [facility] Glucose 114 70 - 199 mg/dL [facility] Comment: Interpretive Data Fasting glucose [...] 2022. Calcium 8.4(L) 8.5 - 10.3 mg/dL [facility] Blood 09/12/2024 3:14 AM CDT 09/12/2024 3:34 AM CDT us Emory Santana MD LAB BLOOD ORDERABLES Final Result Performing Organization Address [facility]/State/ZIP Co de Phone Number [facility] [address] Department [place] [address] * (ABNORMAL) eGFR (09/11/2024 4:59 AM CDT) [...] Santana MD LAB BLOOD ORDERABLES Final Result [facility] [address] Department [place] [address] * Blood culture Blood (09/11/2024 4:59 AM CDT) Report Final Report: No growth Blood 09/11/2024 4:59 AM CDT 09/11/2024 5:09 AM CDT Narrative [facility] - 09/16/2024 7:01 AM CDT From a [...] organism identification may be performed using the [employer] Blood Culture Identification panel. This assay detects microbial DNA in a blood culture broth. This assay has been cleared by the [facility] Food and Drug Administration and its performance characteristics have been verified by the [facility]. Interpretive data was last revised on July 11, 2022. Emory Santana MD LAB MICROBIOLOGY - GENERAL ORDERABLES Final Result Performing Organization Address [facility]/ZIP Co de Phone Number [place] [facility] [address] [place] [address] * Blood culture Blood (09/11/2024 4:59 AM CDT) Report Final Report: No growth Blood 09/11/2024 4:59 AM CDT 09/11/2024 5:09 AM CDT Narrative [facility] - 09/16/2024 7:01 AM CDT Collection->Peripheral [...] organism identification may be performed using the [employer] Blood Culture Identification panel. This assay detects microbial DNA in a blood culture broth. This assay has been cleared by the [place] Food and Drug Administration and its performance characteristics have been verified by the [facility]. Interpretive data was last revised on July 11, 2022. us Emory Santana MD LAB MICROBIOLOGY - GENERAL ORDERABLES Final Result Performing Organization Address City/[facility]/ZIP Co de Phone Number [facility] [address] Department [employer] [place], [place] [id number] * (ABNORMAL) CBC without differential (09/11/2024 4:59 AM CDT) [facility] WBC 11.33(H) 3.80 - 9.90 K/cumm Hgb 10.8(L) 13.0 - 17.5 g/dL [facility] Hct 33.2(L) 38.9 - 50.3 % [facility] Plt 138(L) 150 - 400 K/cumm [facility] MPV 9.5 9.1 - 12.3 fL [facility] RBC 3.37(L) 4.30 - 5.80 M/cumm [facility] MCV 98.5(H) 81.3 - 96.4 fL [facility] MCH 32.0 27.1 - 33.3 pg [facility] MCHC 32.5 32.3 - 35.7 g/dL [facility] RDW CV 15.9(H) 11.1 - 14.9 % [facility] RDW SD 57.7(H) 35.7 - 48.1 fL [facility] NRBC abs 0.00 0.00 - 0.01 K/cumm [facility] Blood 09/11/2024 4:59 AM CDT 09/11/2024 5:08 AM CDT us Emory Santana MD LAB BLOOD ORDERABLES Final Result [facility] [address] Department [place] [address] * (ABNORMAL) Basic metabolic panel (09/11/2024 4:59 AM CDT) [facility] Sodium 139 135 - 145 mmol/L Potassium, pl 3.7 3.3 - 4.9 mmol/L [facility] Chloride 102 97 - 110 mmol/L [facility] CO2 23 22 - 32 mmol/L [facility] Anion gap 14 2 - 15 mmol/L [facility] BUN 39(H) 6 - 25 mg/dL [facility] Creatinine 2.45(H) 0.80 - 1.30 mg/dL [facility] Glucose 131 70 - 199 mg/dL [facility] Comment: Interpretive Data Fasting glucose [...] 2022. Calcium 8.8 8.5 - 10.3 mg/dL [facility] Blood 09/11/2024 4:59 AM CDT 09/11/2024 5:07 AM CDT us Emory Santana MD LAB BLOOD ORDERABLES Final Result [facility] [address] Department [place] [address] * (ABNORMAL) Urinalysis reflex to microscopic and culture Urine, indwelling catheter (09/11/2024 4:07AM CDT) Color, ur Yellow Yellow Clarity, ur Clear Clear [facility] Specific gravity, ur 1.013 1.003 - 1.030 [facility] pH, urine 5.5 [facility] Comment: Interpretive Data U rine pH is affected by diet, medications, systemic acid-base disturbances, and renal tubular function. pH may affect urinary stone formation. For example, urine pH below 6.0 may help reduce the tendency for calcium phosphate stones and pH greater than 6.0 may reduce the tendency for uric acid stone formation. Source: [facility] [employer] Current Interpretive Data was last revised on 2017 Protein, ur ql Trace Negative [facility] Glucose, ur ql Negative Negative [facility] Ketones, ur Negative Negative [facility] Bilirubin, ur Negative Negative [facility] Blood, ur 1+(A) Negative [facility] Urobilinogen, ur <2.0 <2.0 mg/dL [facility] Nitrite, ur Negative Negative [facility] Leukocyte esterase, ur 2+(A) Negative [facility] UA reflex comment Reflex to microscopic UA will be performed. [facility] Urine, indwelling catheter 09/11/2024 4:07 AM CDT 09/11/2024 4:07 AM CDT us Emory Santana MD LAB MICROBIOLOGY - GENERAL ORDERABLES Final Result Performing Organization Address [facility] de Phone Number [facility] [address] [facility] [place] [address] * (ABNORMAL) Urinalysis, microscopic only (09/11/2024 4:07 AM CDT) WBC, ur 11-20(A) 0 - 5 /HPF RBC, ur 3-5(A) 0 - 2 /HPF [facility] Culture Reflex Comment Reflex to urine culture will be performed. [facility] Urine, indwelling catheter 09/11/2024 4:07 AM CDT 09/11/2024 4:14 AM CDT us Emory Santana MD LAB URINE ORDERABLES Final Result Performing Organization Address [facility] de Phone Number [facility] [address] [address] * (ABNORMAL) Urine culture Urine, indwelling catheter (09/11/2024 4:07 AM CDT) Report Final Report: Less than 10,000 colonies/ml of Gram Positive Organism No further workup. (.) Organism GRAM POSITIVE ORGANISM [facility] Urine, indwelling catheter 09/11/2024 4:07 AM CDT 09/11/2024 6:47 AM CDT Narrative [facility] - 09/13/2024 7:16 AM CDT Urine culture reflexed based upon urinalysis results. us Emory Santana MD LAB MICROBIOLOGY - GENERAL ORDERABLES Final Result Performing Organization Address [facility] de Phone Number [facility] [address] Department [place] [address] * (ABNORMAL) eGFR (09/11/2024 2:32 AM CDT) [...] BLOOD ORDERABLES Final Result Performing Organization Address [facility] Co de Phone Number [facility] [address] Department [place] [address] * (ABNORMAL) Differential, auto (09/11/2024 2:32 AM CDT) Pathologist [facility] Neutrophil abs 12.22(H) 1.50 - 6.50 K/cumm Imm gran abs 0.10 0.00 - 0.10 K/cumm [facility] Lymphocyte abs 0.79(L) 0.80 - 3.30 K/cumm [facility] Monocyte abs 1.12(H) 0.20 - 0.80 K/cumm [facility] Eosinophil abs 0.00 0.00 - 0.50 K/cumm [facility] Basophil abs 0.03 0.00 - 0.10 K/cumm [facility] Neutrophil pct 85.7 % [facility] Comment: Interpretive Data Percent cell count reference ranges are not reported, since discordance with absolute values may lead to misinterpretation of CBC data. Current Interpretive Data was last revised on 2017. Imm gran pct 0.7 % [facility] Comment: Interpretive Data Percent cell count reference ranges are not reported, since discordance with absolute values may lead to misinterpretation of CBC data. Current Interpretive Data was last revised on 2017. Lymphocyte pct 5.5 % [facility] Comment: Interpretive Data Percent cell count reference ranges are not reported, since discordance with absolute values may lead to misinterpretation of CBC data. Current Interpretive Data was last revised on 2017. Monocyte pct 7.9 % [facility] Comment: Interpretive Data Percent cell count reference ranges are not reported, since discordance with absolute values may lead to misinterpretation of CBC data. Current Interpretive Data was last revised on 2017. Eosinophil pct 0.0 % [facility] Comment: Interpretive Data Percent cell count reference ranges are not reported, since discordance with absolute values may lead to misinterpretation of CBC data. Current Interpretive Data was last revised on 2017. Basophil pct 0.2 % [facility] Comment: Interpretive Data Percent cell count reference ranges are not reported, since discordance with absolute values may lead to misinterpretation of CBC data. Current Interpretive Data was last revised on 2017. Blood 09/11/2024 2:32 AM CDT 09/11/2024 2:46 AM CDT us Emory Santana MD LAB BLOOD ORDERABLES Final Result [facility] [address] Department [place] [address] * (ABNORMAL) CBC with auto differential (09/11/2024 2:32 AM CDT) WBC 14.26(H) 3.80 - 9.90 K/cumm Hgb 11.6(L) 13.0 - 17.5 g/dL [facility] Hct 34.8(L) 38.9 - 50.3 % [facility] Plt 171 150 - 400 K/cumm [facility] MPV 9.8 9.1 - 12.3 fL [facility] RBC 3.59(L) 4.30 - 5.80 M/cumm [facility] MCV 96.9(H) 81.3 - 96.4 fL [facility] MCH 32.3 27.1 - 33.3 pg [facility] MCHC 33.3 32.3 - 35.7 g/dL [facility] RDW CV 16.1(H) 11.1 - 14.9 % [facility] RDW SD 57.1(H) 35.7 - 48.1 fL [facility] NRBC abs 0.00 0.00 - 0.01 K/cumm [facility] Blood 09/11/2024 2:32 AM CDT 09/11/2024 2:46 AM CDT Emory Santana MD LAB BLOOD ORDERABLES Final Result Performing Organization Address [facility] Co de Phone Number [facility] [address] Department [place] [address] * aPTT (09/11/2024 2:32 AM CDT) [facility] aPTT 32 28 - 38 sec Comment: Interpretive Data Heparin therapeutic range: 66.0 - 100.0 seconds. Range based on correlation with therapeutic heparin activity range of 0.3 - 0.7 Units/mL. Current interpretive data was last revised on 2023. Blood 09/11/2024 2:32 AM CDT 09/11/2024 2:46 AM CDT Emory Santana MD LAB BLOOD ORDERABLES Final Result Performing Organization Address [facility] Co de Phone Number [facility] [address] [place] [address] * (ABNORMAL) Protime-INR (09/11/2024 2:32 AM CDT) [facility] PT 16.4(H) 9.7 - 13.0 sec INR 1.51(H) 0.90 - 1.20 [facility] Comment: Interpretive data Oral anticoagulant [...] [facility]/ZIP Co de Phone Number [facility] [address] [place] [address] * Vancomycin level random (09/11/2024 2:32 AM CDT) [facility] Vancomycin random <4.0 mcg/mL Comment: Interpretive Data No reference ranges have been established for random drug levels. Current Interpretive Data was last revised on 2020. Blood 09/11/2024 2:32 AM CDT 09/11/2024 2:46 AM CDT us Emory Santana MD LAB BLOOD ORDERABLES Final Result Performing Organization Address City/[facility]/ZIP Co de Phone Number [facility] [address] [facility] [place] [address] * (ABNORMAL) Comprehensive metabolic panel (09/11/2024 2:32 AM CDT) [facility] Sodium 140 135 - 145 mmol/L Potassium, pl 3.7 3.3 - 4.9 mmol/L [facility] Chloride 103 97 - 110 mmol/L [facility] CO2 22 22 - 32 mmol/L [facility] Anion gap 15 2 - 15 mmol/L [facility] BUN 35(H) 6 - 25 mg/dL [facility] Creatinine 2.36(H) 0.80 - 1.30 mg/dL [facility] Glucose 128 70 - 199 mg/dL [facility] Comment: Interpretive Data Fasting glucose [...] 2022. Calcium 8.7 8.5 - 10.3 mg/dL [facility] Bilirubin, total 1.0 0.1 - 1.2 mg/dL [facility] Protein, pl 6.2(L) 6.5 - 8.5 g/dL [facility] Albumin 3.8 3.5 - 5.0 g/dL [facility] Alk phos 63 40 - 130 Units/L [facility] ALT 13 7 - 55 Units/L [facility] AST 15 10 - 50 Units/L [facility] Blood 09/11/2024 2:32 AM CDT 09/11/2024 2:46 AM CDT us Emory Santana MD LAB BLOOD ORDERABLES Final Result [facility] [address] Department [place] [address] * Differential, auto (08/31/2024 8:12 AM CDT) Neutrophil abs 6.0 1.5 - 6.5 K/cumm Comment:Testing performed by : [facility], [address] [place] [phone] Lymphocyte abs 1.0 0.8 - 3.3 K/cumm [facility] Comment:Testing performed by : [facility], [address] [place] [phone] Monocyte abs 0.6 0.2 - 0.8 K/cumm [facility] Comment:Testing performed by : [facility], [address] [place], [place] [phone] Eosinophil abs 0.3 0.0 - 0.5 K/cumm [facility] Comment:Testing performed by : [facility], [address] [place] [phone] Basophil abs 0.1 0.0 - 0.1 K/cumm [facility] Comment:Testing performed by : [facility], [address] [place] [phone] Neutrophil pct 75.2 % [facility] Comment: Interpretive Data Percent cell count reference ranges are not reported, since discordance with absolute values may lead to misinterpretation of CBC data. Current Interpretive Data was last revised on 2017. Testing performed by: [facility], [address] [place] [phone] Lymphocyte pct 12.4 % [facility] Comment: Interpretive Data Percent cell count reference ranges are not reported, since discordance with absolute values may lead to misinterpretation of CBC data. Current Interpretive Data was last revised on 2017. Testing performed by: [facility], [address] [place] [phone] Monocyte pct 7.9 % [facility] Comment: Interpretive Data Percent cell count reference ranges are not reported, since discordance with absolute values may lead to misinterpretation of CBC data. Current Interpretive Data was last revised on 2017. Testing performed by: [facility], [address] [place] [phone] Eosinophil pct 3.9 % [facility] Comment: Interpretive Data Percent cell count reference ranges are not reported, since discordance with absolute values may lead to misinterpretation of CBC data. Current Interpretive Data was last revised on 2017. Testing performed by: [facility], [address] [place] [address] Basophil pct 0.6 % [facility] Comment: Interpretive Data Percent cell count reference ranges are not reported, since discordance with absolute values may lead to misinterpretation of CBC data. Current Interpretive Data was last revised on 2017. Testing performed by: [facility], [address] [place] [address] Blood 08/31/2024 8:12 AM CDT 08/31/2024 8:16 AM CDT Hermelindo Butler MD LAB BLOOD ORDER ELANA Final Result [facility] Department [place] [address] * (ABNORMAL) CBC with auto differential (08/31/2024 8:12 AM CDT) WBC 8.0 3.8 - 9.9 K/cumm Comment:Testing performed by : [facility], [address] [place] [address] Hgb 12.7(L) 13.0 - 17.5 g/dL [facility] Comment:Testing performed by : [facility], [address] [place] [address] Hct 37.8(L) 38.9 - 50.3 % [facility] Comment:Testing performed by : [facility], [address] [place] [address] Plt 176 150 - 400 K/cumm [facility] Comment:Testing performed by : [facility], [address] [place] [address] MPV 7.7 6.8 - 10.4 fL [facility] Comment:Testing performed by : [facility], [address] [place] [address] RBC 4.07(L) 4.30 - 5.80 M/cumm [facility] Comment:Testing performed by : [facility], [address] [place] [phone] MCV 92.8 81.3 - 96.4 fL [facility] Comment:Testing performed by : [facility], [address] [place], [place] [phone] MCH 31.2 27.1 - 33.3 pg [facility] Comment:Testing performed by : [facility], [address] [place], [place] [phone] MCHC 33.6 32.3 - 35.7 g/dL [facility] Comment:Testing performed by : [facility], [address] [place] [phone] RDW CV 16.1(H) 11.1 - 14.9 % [facility] Comment:Testing performed by : [facility], [address] [place], [place] [phone] NRBC abs 0.00 0.00 - 0.01 K/cumm [facility] Comment:Testing performed by : [facility], [address] [place] [phone] Blood 08/31/2024 8:12 AM CDT 08/31/2024 8:16 AM CDT Hermelindo Butler MD LAB BLOOD ORDER ELANA Final Result [facility] Department [place] [address] * Type and screen (08/31/2024 8:12 AM CDT) ABO Rh A Positive Yehuda, indirect Negative [facility] Comment:Patient has previous antibody history Blood 08/31/2024 8:12 AM CDT 08/31/2024 8:25 AM CDT Narrative [facility] - 08/31/2024 9:28 AM CDT Has the patient had Daratumumab or Isatuximab in the past 6 months?->Unknown Hermelindo Butler MD LAB BLOOD BANK TEST ORDERABLES Final Result Performing Organization Address City/[facility]/ZIP Co de Phone Number [facility] [place] [employer] [place] [address] * Immunotyping, serum with interpretation (08/31/2024 8:12 AM CDT) Immunosubtraction Please see comment Comment: NO PARAPROTEIN DETECTED Reviewed and signed by Ivan Sims MD, PhD 09/01/2024 Blood 08/31/2024 8:12 AM CDT 08/31/2024 9:34 AM CDT Hermelindo Butler MD LAB BLOOD ORDER ELANA Final Result Performing Organization Address [facility] de Phone Number [facility] [place] [address] * (ABNORMAL) eGFR (08/31/2024 8:12 AM CDT) [facility] eGFR 45(L) >=60 mL/min/1. 73 m2 [...] LAB BLOOD ORDER ELANA Final Result [facility] Department [place] [address] * (ABNORMAL) Immunoglobulin free light chains (08/31/2024 8:12 AM CDT) Leshara/Lambda ratio [facility] See Comment 0.26 - 1.65 Comment: Unable to calculate exact result. Interpretive Data The Binding Site FreeLite assay procedure was used. Results from different manufacturers or methods may not be comparable. Serial testing should be performed using the same methods and instrumentation. Current Interpretive Data was last revised on 2023. Leshara free light chain [facility] <0.06(L) 0.33 - 1.94 mg/dL [facility] Comment: Interpretive Data The Binding Site FreeLite assay procedure was used. Results from different manufacturers or methods may not be comparable. Serial testing should be performed using the same methods and instrumentation. Current Interpretive Data was last revised on 2023. Lambda free light chain [facility] <0.14(L) 0.57 - 2.63 mg/dL [facility] Comment: Interpretive Data The Binding Site FreeLite assay procedure was used. Results from different manufacturers or methods may not be comparable. Serial testing should be performed using the same methods and instrumentation. Current Interpretive Data was last revised on 2023. Blood 08/31/2024 8:12 AM CDT 08/31/2024 9:34 AM CDT Hermelindo Butler MD LAB BLOOD ORDER ELANA Final Result [facility] Department [place] [address] * (ABNORMAL) aPTT (08/31/2024 8:12 AM CDT) Pathologist [facility] aPTT 50(H) 28 - 38 sec Comment: Interpretive Data Heparin therapeutic range: 66.0 - 100.0 seconds. Range based on correlation with therapeutic heparin activity range of 0.3 - 0.7 Units/mL. Current interpretive data was last revised on 2023. Blood 08/31/2024 8:12 AM CDT 08/31/2024 8:41 AM CDT Hermelindo Butler MD LAB BLOOD ORDER ELANA Final Result Performing Organization Address [facility] Co de Phone Number [facility] [place] [address] * Protime-INR (08/31/2024 8:12 AM CDT) [facility] PT 11.4 9.7 - 13.0 sec INR 1.05 0.90 - 1.20 [facility] Comment: Interpretive data Oral anticoagulant therapeutic ranges: Venous thromboembolism prophylaxis or treatment: 2.0-3.0 CARDIOLOGY Standard range: 2.0-3.0 High-intensity range: 2.5-3.5 Refer to indication-specific guidelines for appropriate target ranges for prosthetic heart valve replacement. Current interpretive data was last revised on 2019. Blood 08/31/2024 8:12 AM CDT 08/31/2024 8:41 AM CDT Hermelindo Butler MD LAB BLOOD ORDER ELANA Final Result Performing Organization Address [facility] Co de Phone Number [facility] [employer] [place] [place] [address] * (ABNORMAL) Protein electrophoresis with reflex, serum with interpretation (08/31/2024 8:12 AM CDT) Pathologist [facility] Protein, sr 6.0(L) 6.2 - 8.2 g/dL Albumin 3.9 3.2 - 5.0 g/dL [facility] Alpha-1 globulin 0.4 0.2 - 0.4 g/dL [facility] Alpha-2 globulin 0.7 0.5 - 1.0 g/dL [facility] Beta-1 globulin 0.5 0.3 - 0.6 g/dL [facility] Beta-2 globulin 0.3 0.2 - 0.6 g/dL [facility] Gamma globulin 0.2(L) 0.5 - 1.7 g/dL [facility] SPEP interp Please see comment [facility] Comment: No apparent monoclonal peak Decreased gamma globulins Electrophoretic pattern appears similar to previous sample 08/24/2024 See immunotyping for further information Reviewed and signed by Ivan Sims MD, PhD 09/01/2024 Blood 08/31/2024 8:12 AM CDT 08/31/2024 9:34 AM CDT Hermelindo Butler MD LAB BLOOD ORDER ELANA Final Result [facility] [place] [employer] [address] * Magnesium (08/31/2024 8:12 AM CDT) Pathologist [facility] Magnesium 1.8 1.4 - 2.5 mg/dL Blood 08/31/2024 8:12 AM CDT 08/31/2024 8:20 AM CDT Hermelindo Butler MD LAB BLOOD ORDER ELANA Final Result [facility] [place] [address] * Lactate dehydrogenase (LD) (08/31/2024 8:12 AM CDT) Lactate dehydrogenase (LDH) 155 100 - 250 Units/L Blood 08/31/2024 8:12 AM CDT 08/31/2024 8:20 AM CDT us Hermelindo Butler MD LAB BLOOD ORDER ELANA Final Result Performing Organization Address [facility] de Phone Number [facility] [place] [address] * Gamma GT (08/31/2024 8:12 AM CDT) Pathologist [facility] GGT 27 10 - 50 Units/L Blood 08/31/2024 8:12 AM CDT 08/31/2024 8:20 AM CDT us Hermelindo Butler MD LAB BLOOD ORDER ELANA Final Result Performing Organization Address [facility] de Phone Number [facility] Department [place] [address] * (ABNORMAL) IgA (08/31/2024 8:12 AM CDT) [facility] Immunoglobulin A <50(L) 70 - 400 mg/dL Blood 08/31/2024 8:12 AM CDT 08/31/2024 8:38 AM CDT us Hermelindo Butler MD LAB BLOOD ORDER ELANA Final Result Performing Organization Address [facility] de Phone Number [facility] [place] [address] * (ABNORMAL) IgM (08/31/2024 8:12 AM CDT) Pathologist [facility] Immunoglobulin M <25(L) 40 - 230 mg/dL Blood 08/31/2024 8:12 AM CDT 08/31/2024 8:38 AM CDT us Hermelindo Butler MD LAB BLOOD ORDER ELANA Final Result Performing Organization Address City/[facility]/ZIP Co de Phone Number [facility] Department [place] [address] * (ABNORMAL) IgG (08/31/2024 8:12 AM CDT) [facility] Immunoglobulin G <300(L) 700 - 1,600 mg/dL Blood 08/31/2024 8:12 AM CDT 08/31/2024 8:38 AM CDT Hermelindo Butler MD LAB BLOOD ORDER ELANA Final Result Performing Organization Address [facility] de Phone Number [facility] Department [place] [address] * (ABNORMAL) Comprehensive metabolic panel (08/31/2024 8:12 AM CDT) [facility] Sodium 141 135 - 145 mmol/L Potassium, pl 4.0 3.3 - 4.9 mmol/L [facility] Chloride 103 97 - 110 mmol/L [facility] CO2 29 22 - 32 mmol/L [facility] Anion gap 9 2 - 15 mmol/L [facility] BUN 31(H) 6 - 25 mg/dL [facility] Creatinine 1.61(H) 0.80 - 1.30 mg/dL [facility] Glucose 114 70 - 199 mg/dL [facility] Comment: Interpretive Data Fasting glucose >/= 126 [...] Calcium 9.4 8.5 - 10.3 mg/dL [facility] Bilirubin, total 0.4 0.1 - 1.2 mg/dL [facility] Protein, pl 6.5 6.5 - 8.5 g/dL [facility] Albumin 4.1 3.5 - 5.0 g/dL [facility] Alk phos 65 40 - 130 Units/L [facility] ALT 16 7 - 55 Units/L [facility] AST 15 10 - 50 Units/L [facility] Blood 08/31/2024 8:12 AM CDT 08/31/2024 8:20 AM CDT Hermelindo Butler MD LAB BLOOD ORDER ELANA Final Result [facility] Department [place] [address] * SCAN - LABS (08/30/2024) us Provider [...] MD LAB BLOOD ORDERABLES Final Result [facility] Department [place] [address] * (ABNORMAL) Differential, auto (08/26/2024 12:25 AM CDT) Neutrophil abs 5.3 1.5 - 6.5 K/cumm Imm gran abs 0.0 0.0 - 0.1 K/cumm [facility] Lymphocyte abs 0.7(L) 0.8 - 3.3 K/cumm [facility] Monocyte abs 0.6 0.2 - 0.8 K/cumm [facility] Eosinophil abs 0.3 0.0 - 0.5 K/cumm [facility] Basophil abs 0.0 0.0 - 0.1 K/cumm [facility] Neutrophil pct 75.7 % [facility] Comment: Interpretive Data Percent cell count reference ranges are not reported, since discordance with absolute values may lead to misinterpretation of CBC data. Current Interpretive Data was last revised on 2017. Imm gran pct 0.4 % [facility] Comment: Interpretive Data Percent cell count reference ranges are not reported, since discordance with absolute values may lead to misinterpretation of CBC data. Current Interpretive Data was last revised on 2017. Lymphocyte pct 10.4 % [facility] Comment: Interpretive Data Percent cell count reference ranges are not reported, since discordance with absolute values may lead to misinterpretation of CBC data. Current Interpretive Data was last revised on 2017. Monocyte pct 9.0 % [facility] Comment: Interpretive Data Percent cell count reference ranges are not reported, since discordance with absolute values may lead to misinterpretation of CBC data. Current Interpretive Data was last revised on 2017. Eosinophil pct 4.4 % [facility] Comment: Interpretive Data Percent cell count reference ranges are not reported, since discordance with absolute values may lead to misinterpretation of CBC data. Current Interpretive Data was last revised on 2017. Basophil pct 0.1 % [facility] Comment: Interpretive Data Percent [...] [facility]ZIP Co de Phone Number [facility] Department [place] [address] * (ABNORMAL) CBC with auto differential (08/26/2024 12:25 AM CDT) WBC 7.0 3.8 - 9.9 K/cumm Hgb 11.8(L) 13.0 - 17.5 g/dL [facility] Hct 35.7(L) 38.9 - 50.3 % [facility] Plt 131(L) 150 - 400 K/cumm [facility] MPV 9.2 9.1 - 12.3 fL [facility] RBC 3.83(L) 4.30 - 5.80 M/cumm [facility] MCV 93.2 81.3 - 96.4 fL [facility] MCH 30.8 27.1 - 33.3 pg [facility] MCHC 33.1 32.3 - 35.7 g/dL [facility] RDW CV 15.4(H) 11.1 - 14.9 % [facility] RDW SD 51.7(H) 35.7 - 48.1 fL [facility] NRBC abs 0.00 0.00 - 0.01 K/cumm [facility] Blood 08/26/2024 12:2 5 AM CDT 08/26/2024 12:35 AM CDT Karlos Hargrove MD LAB BLOOD ORDERABLES Final Result Performing Organization Address City/[facility]/[place] [address] * Type and screen (08/26/2024 12:25 AM CDT) Yehuda, indirect Negative Comment:Patient has previous antibody history ABO Rh A Positive [facility] Blood 08/26/2024 12:2 5 AM CDT 08/26/2024 12:38 AM CDT Narrative [facility] - 08/26/2024 2:23 AM CDT Has the patient had Daratumumab or Isatuximab in the past 6 months?->Unknown us Karlos Hargrove MD LAB BLOOD BANK TEST ORDERA BLES Final Result Performing Organization Address City/State/[facility] [place] [address] * (ABNORMAL) Uric acid (08/26/2024 12:25 AM CDT) Pathologist [facility] Uric acid 8.6(H) 3.0 - 8.0 mg/dL Blood 08/26/2024 12:2 5 AM CDT 08/26/2024 12:35 AM CDT Narrative [facility] - 08/26/2024 1:10 AM CDT Friday and only. Morning draw. . Karlos Hargrove MD LAB [place] [address] * Phosphorus (08/26/2024 12:25 AM CDT) Pathologist [facility] Phosphorus, pl 3.6 2.3 - 4.5 mg/dL Blood 08/26/2024 12:2 5 AM CDT 08/26/2024 12:35 AM CDT us Karlos Hargrove MD LAB BLOOD ORDERABLES Final Result Performing Organization Address City/[facility] Co de Phone Number [facility] [place] [address] * Magnesium (08/26/2024 12:25 AM CDT) [facility] Magnesium 1.7 1.4 - 2.5 mg/dL Blood 08/26/2024 12:2 5 AM CDT 08/26/2024 12:35 AM CDT us Karlos Hargrove MD LAB BLOOD ORDERABLES Final Result Performing Organization Address [facility] de Phone Number [facility] [place] [address] * Lactate dehydrogenase (LD) (08/26/2024 12:25 AM CDT) [facility] Lactate dehydrogenase (LDH) 167 100 - 250 Units/L Blood 08/26/2024 12:2 5 AM CDT 08/26/2024 12:35 AM CDT Narrative [facility] - 08/26/2024 1:10 AM CDT Friday and only. Morning draw. us Karlos Hargrove MD LAB BLOOD ORDERABLES Final Result Performing Organization Address [facility] Co de Phone Number [facility] [place] [address] * (ABNORMAL) Comprehensive metabolic panel (08/26/2024 12:25 AM CDT) [facility] Sodium 148(H) 135 - 145 mmol/L Potassium, pl 3.4 3.3 - 4.9 mmol/L [facility] Chloride 108 97 - 110 mmol/L [facility] CO2 28 22 - 32 mmol/L [facility] Anion gap 12 2 - 15 mmol/L [facility] BUN 35(H) 6 - 25 mg/dL [facility] Creatinine 2.27(H) 0.80 - 1.30 mg/dL [facility] Glucose 107 70 - 199 mg/dL [facility] Comment: Interpretive Data Fasting glucose >/= 126 [...] Calcium 8.9 8.5 - 10.3 mg/dL [facility] Bilirubin, total 0.6 0.1 - 1.2 mg/dL [facility] Protein, pl 5.9(L) 6.5 - 8.5 g/dL [facility] Albumin 3.7 3.5 - 5.0 g/dL [facility] Alk phos 60 40 - 130 Units/L [facility] ALT 15 7 - 55 Units/L [facility] AST 13 10 - 50 Units/L [facility] Blood 08/26/2024 12:2 5 AM CDT 08/26/2024 12:35 AM CDT Karlos Hargrove MD LAB BLOOD ORDERABLES Final Result [facility] Department [place] [address] * US Vein Duplex Lower Extremity Bilateral Complete (08/25/2024 9:30 AM CDT) Anatomical Region Laterality Modality Vascular Bilateral Ultrasound 08/25/2024 8:37 AM CDT Narrative 08/27/2024 11:10 AM CDT [facility] - Department of Vascular Surgery, Vascular Laboratory [address] [place] [address] Lower Extremity Venous Ultrasound Report Patient Name: BUFFY VALLE B : 1950 (73y 8m) Study Date: 08/25/2024 8:37:41 AM Gender: M Tech: Location: [id number] Ref Provider: OLGA KEITH Quality: Adequate Order Provider: OLGA KEITH PROCEDURES: Vascular Report: Venous Duplex imaging was performed bilaterally in the lower extremities. The common femoral, femoral, popliteal, posterior tibial, peroneal veins were evaluated for patency, spontaneity and phasicity with Doppler, compression and augmentation maneuvers. Great saphenous vein proximal at the junction was evaluated with compression maneuvers. INDICATIONS: Localized edema. FINDINGS: Performing 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: Farzana Owens RVT. Bilateral: Venous Doppler signals [...] above. Electronically Signed By: Cesar Cabello MD [facility] [phone] 08/27/2024 10:10:26 AM CDT Procedure Note Cesar Cabello MD - 08/27/2024 [facility] - Department of Vascular Surgery,Vascular Laboratory [address] [place] [address] Lower Extremity Venous Ultrasound Report Patient Name: BUFFY VALLE B : 1950 (73y 8m) Study Date: 08/25/2024 8:37:41 AM Gender: M Tech: Location: [id number] Ref Provider: OLGA KEITH Quality: Adequate Order Provider: OLGA KEITH PROCEDURES: Vascular Report: Venous Duplex imaging was performed bilaterally in the lower extremities.The common femoral, femoral, popliteal, posterior tibial, peroneal veins wereevaluated for patency, spontaneity and phasicity with Doppler, compression and augmentationmaneuvers. Great saphenous vein proximal at the junction was evaluated with compressionmaneuvers. INDICATIONS: Localized edema. FINDINGS: Performing 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: Farzana Owens RVT. Bilateral: Venous Doppler signals [...] above. Electronically Signed By: Cesar Cabello MD [facility] [phone] 08/27/2024 10:10:26 AM CDT Olga Keith MD IM US PROCEDURES Final [...] MD LAB BLOOD ORDERABLES Final Result [facility] Department [place] [address] * (ABNORMAL) Differential, auto (08/25/2024 12:34 AM CDT) Neutrophil abs 5.2 1.5 - 6.5 K/cumm Imm gran abs 0.1 0.0 - 0.1 K/cumm [facility] Lymphocyte abs 0.5(L) 0.8 - 3.3 K/cumm [facility] Monocyte abs 0.5 0.2 - 0.8 K/cumm [facility] Eosinophil abs 0.4 0.0 - 0.5 K/cumm [facility] Basophil abs 0.0 0.0 - 0.1 K/cumm [facility] Neutrophil pct 77.6 % [facility] Comment: Interpretive Data Percent cell count reference ranges are not reported, since discordance with absolute values may lead to misinterpretation of CBC data. Current Interpretive Data was last revised on 2017. Imm gran pct 0.7 % [facility] Comment: Interpretive Data Percent cell count reference ranges are not reported, since discordance with absolute values may lead to misinterpretation of CBC data. Current Interpretive Data was last revised on 2017. Lymphocyte pct 7.9 % [facility] Comment: Interpretive Data Percent cell count reference ranges are not reported, since discordance with absolute values may lead to misinterpretation of CBC data. Current Interpretive Data was last revised on 2017. Monocyte pct 7.5 % [facility] Comment: Interpretive Data Percent cell count reference ranges are not reported, since discordance with absolute values may lead to misinterpretation of CBC data. Current Interpretive Data was last revised on 2017. Eosinophil pct 6.0 % [facility] Comment: Interpretive Data Percent cell count reference ranges are not reported, since discordance with absolute values may lead to misinterpretation of CBC data. Current Interpretive Data was last revised on 2017. Basophil pct 0.3 % [facility] Comment: Interpretive Data Percent cell count reference ranges are not reported, since discordance with absolute values may lead to misinterpretation of CBC data. Current Interpretive Data was last revised on 2017. Blood 08/25/2024 12:3 4 AM CDT 08/25/2024 12:57 AM CDT Karlos Hargrove MD LAB BLOOD ORDERABLES Final Result [facility] Department [place] [address] * (ABNORMAL) CBC with auto differential (08/25/2024 12:34 AM CDT) WBC 6.7 3.8 - 9.9 K/cumm Hgb 11.2(L) 13.0 - 17.5 g/dL [facility] Hct 33.3(L) 38.9 - 50.3 % [facility] Plt 136(L) 150 - 400 K/cumm [facility] MPV 9.5 9.1 - 12.3 fL [facility] RBC 3.57(L) 4.30 - 5.80 M/cumm [facility] MCV 93.3 81.3 - 96.4 fL [facility] MCH 31.4 27.1 - 33.3 pg [facility] MCHC 33.6 32.3 - 35.7 g/dL [facility] RDW CV 15.3(H) 11.1 - 14.9 % [facility] RDW SD 51.0(H) 35.7 - 48.1 fL [facility] NRBC abs 0.00 0.00 - 0.01 K/cumm [facility] Blood 08/25/2024 12:3 4 AM CDT 08/25/2024 12:57 AM CDT us Karlos Hargrove MD LAB BLOOD ORDERABLES Final Result Performing Organization Address [facility] Co de Phone Number [facility] [place] [address] * Phosphorus (08/25/2024 12:34 AM CDT) Pathologist [facility] Phosphorus, pl 3.7 2.3 - 4.5 mg/dL Blood 08/25/2024 12:3 4 AM CDT 08/25/2024 12:55 AM CDT us Karlos Hargrove MD LAB BLOOD ORDERABLES Final Result Performing Organization Address [facility] de Phone Number [facility] [place] [employer] [address] * Magnesium (08/25/2024 12:34 AM CDT) [facility] Magnesium 1.9 1.4 - 2.5 mg/dL Blood 08/25/2024 12:3 4 AM CDT 08/25/2024 12:55 AM CDT us Karlos Hargrove MD LAB BLOOD ORDERABLES Final Result Performing Organization Address [facility] [place] [address] * (ABNORMAL) Comprehensive metabolic panel (08/25/2024 12:34 AM CDT) Pathologist [facility] Sodium 147(H) 135 - 145 mmol/L Potassium, pl 3.2(L) 3.3 - 4.9 mmol/L [facility] Chloride 109 97 - 110 mmol/L [facility] CO2 26 22 - 32 mmol/L [facility] Anion gap 12 2 - 15 mmol/L [facility] BUN 47(H) 6 - 25 mg/dL [facility] Creatinine 2.74(H) 0.80 - 1.30 mg/dL [facility] Glucose 154 70 - 199 mg/dL [facility] Comment: Interpretive Data Fasting glucose >/= 126 [...] Calcium 8.4(L) 8.5 - 10.3 mg/dL [facility] Bilirubin, total 0.4 0.1 - 1.2 mg/dL [facility] Protein, pl 5.9(L) 6.5 - 8.5 g/dL [facility] Albumin 3.9 3.5 - 5.0 g/dL [facility] Alk phos 61 40 - 130 Units/L [facility] ALT 18 7 - 55 Units/L [facility] AST 17 10 - 50 Units/L [facility] Blood 08/25/2024 12:3 4 AM CDT 08/25/2024 12:55 AM CDT Karlos Hargrove MD LAB BLOOD ORDERABLES Final Result [facility] Department [place] [address] * Sodium, urine, random (08/24/2024 5:16 PM CDT) Sodium, ur 44 mmol/L Comment: Interpretive Data No reference range established. Current interpretive data was last revised 2018. Urine 08/24/2024 5:16 PM CDT 08/24/2024 5:31 PM CDT us Olga Keith MD LAB URINE ORDERABLES Final Resul t [facility] Department [place] [address] * CT Abdomen Pelvis WO Contrast (08/24/2024 [...] 0.0 0.0 - 0.1 K/cumm [facility] Neutrophil pct 73.7 % [facility] Comment: Interpretive Data Percent cell count reference ranges are not reported, since discordance with absolute values may lead to misinterpretation of CBC data. Current Interpretive Data was last revised on 2017. Imm gran pct 0.6 % [facility] Comment: Interpretive Data Percent cell count reference ranges are not reported, since discordance with absolute values may lead to misinterpretation of CBC data. Current Interpretive Data was last revised on 2017. Lymphocyte pct 10.0 % [facility] Comment: Interpretive Data Percent cell count reference ranges are not reported, since discordance with absolute values may lead to misinterpretation of CBC data. Current Interpretive Data was last revised on 2017. Monocyte pct 8.3 % [facility] Comment: Interpretive Data Percent [...] on 2017. Basophil pct 0.3 % [facility] Comment: Interpretive Data Percent cell count reference ranges are not reported, since discordance with absolute values may lead to misinterpretation of CBC data. Current Interpretive Data was last revised on 2017. Blood 08/24/2024 2:30 AM CDT 08/24/2024 1:28 AM CDT Karlos Hargrove MD LAB BLOOD ORDERABLES Final Result Performing Organization Address City/[facility]/ZIP Co de Phone Number [facility] Department [place] [address] * (ABNORMAL) CBC with auto differential (08/24/2024 2:30 AM CDT) WBC 6.6 3.8 - 9.9 K/cumm Hgb 10.9(L) 13.0 - 17.5 g/dL [facility] Hct 33.1(L) 38.9 - 50.3 % [facility] Plt 130(L) 150 - 400 K/cumm [facility] MPV 10.0 9.1 - 12.3 fL [facility] RBC 3.50(L) 4.30 - 5.80 M/cumm [facility] MCV 94.6 81.3 - 96.4 fL [facility] MCH 31.1 27.1 - 33.3 pg [facility] MCHC 32.9 32.3 - 35.7 g/dL [facility] RDW CV 15.3(H) 11.1 - 14.9 % [facility] RDW SD 51.8(H) 35.7 - 48.1 fL [facility] NRBC abs 0.00 0.00 - 0.01 K/cumm [facility] Blood 08/24/2024 2:30 AM CDT 08/24/2024 1:28 AM CDT Karlos Hargrove MD LAB BLOOD ORDERABLES Final Result [facility] [place] [address] * (ABNORMAL) eGFR (08/24/2024 1:12 AM CDT) [...] Organization Address City/[facility] Co de Phone Number [facility] [place] [address] * aPTT (08/24/2024 1:12 AM CDT) aPTT [...] BLOOD ORDERABLES Final Result Performing Organization Address [facility] Co de Phone Number [facility] Department [place] [address] * Protime-INR (08/24/2024 1:12 AM CDT) PT 11.7 9.7 - 13.0 sec INR 1.08 0.90 - 1.20 [facility] Comment: Interpretive data Oral anticoagulant therapeutic ranges: Venous thromboembolism prophylaxis or treatment: 2.0-3.0 CARDIOLOGY Standard range: 2.0-3.0 High-intensity range: 2.5-3.5 Refer to indication-specific guidelines for appropriate target ranges for prosthetic heart valve replacement. Current interpretive data was last revised on 2019. Blood 08/24/2024 1:12 AM CDT 08/24/2024 1:53 AM CDT Karlos Hargrove MD LAB BLOOD ORDERABLES Final Result Performing Organization Address [facility] de Phone Number [facility] Department [place] [address] * Type and screen (08/24/2024 1:12 AM CDT) Yehuda, indirect Negative Comment:Patient has previous antibody history ABO Rh A Positive [facility] Blood 08/24/2024 1:12 AM CDT 08/24/2024 1:36 AM CDT Narrative [facility] - 08/24/2024 2:36 AM CDT Has the patient had Daratumumab or Isatuximab in the past 6 months?->Unknown Karlos Hargrove MD LAB BLOOD BANK TEST ORDERA BLES Final Result Performing Organization Address City/[facility] de Phone Number [facility] Department [place] [address] * (ABNORMAL) Uric acid (08/24/2024 1:12 AM CDT) Pathologist [facility] Uric acid 9.5(H) 3.0 - 8.0 mg/dL Blood 08/24/2024 1:12 AM CDT 08/24/2024 1:35 AM CDT Narrative [facility] - 08/24/2024 2:47 AM CDT Friday and only. Morning draw. . us Karlos Hargrove MD LAB BLOOD ORDERABLES Final Result [facility] [place] [address] * Phosphorus (08/24/2024 1:12 AM CDT) [facility] Phosphorus, pl 4.5 2.3 - 4.5 mg/dL Blood 08/24/2024 1:12 AM CDT 08/24/2024 1:35 AM CDT us Karlos Hargrove MD LAB BLOOD ORDERABLES Final Result Performing Organization Address City/[facility]/ZIP Co de Phone Number [facility] Department [place] [address] * Magnesium (08/24/2024 1:12 AM CDT) [facility] Magnesium 2.0 1.4 - 2.5 mg/dL Blood 08/24/2024 1:12 AM CDT 08/24/2024 1:35 AM CDT us Karlos Hargrove MD LAB BLOOD ORDERABLES Final Result [facility] Department [place] [address] * Lactate dehydrogenase (LD) (08/24/2024 1:12 AM CDT) Pathologist [facility] Lactate dehydrogenase (LDH) 226 100 - 250 Units/L Blood 08/24/2024 1:12 AM CDT 08/24/2024 1:35 AM CDT Narrative [facility] - 08/24/2024 2:47 AM CDT Friday and only. Morning draw. Karlos Hargrove MD LAB BLOOD ORDERABLES Final Result [facility] [place] [address] * (ABNORMAL) Comprehensive metabolic panel (08/24/2024 1:12 AM CDT) Pathologist [facility] Sodium 148(H) 135 - 145 mmol/L Potassium, pl 3.6 3.3 - 4.9 mmol/L [facility] Chloride 111(H) 97 - 110 mmol/L [facility] CO2 25 22 - 32 mmol/L [facility] Anion gap 12 2 - 15 mmol/L [facility] BUN 56(H) 6 - 25 mg/dL [facility] Creatinine 3.16(H) 0.80 - 1.30 mg/dL [facility] Glucose 102 70 - 199 mg/dL [facility] Comment: Interpretive Data Fasting glucose >/= 126 [...] Calcium 8.5 8.5 - 10.3 mg/dL [facility] Bilirubin, total 0.4 0.1 - 1.2 mg/dL [facility] Protein, pl 5.7(L) 6.5 - 8.5 g/dL [facility] Albumin 3.6 3.5 - 5.0 g/dL [facility] Alk phos 62 40 - 130 Units/L [facility] ALT 16 7 - 55 Units/L [facility] AST 11 10 - 50 Units/L [facility] Blood 08/24/2024 1:12 AM CDT 08/24/2024 1:35 AM CDT Karlos Hargrove MD LAB BLOOD ORDERABLES Final Result [facility] Department [place] [address] * US Kidney Complete (08/23/2024 8:12 PM [...] Straw Yellow Clarity, ur Clear Clear [facility] Specific gravity, ur 1.011 1.003 - 1.030 [facility] pH, urine 5.5 [facility] Comment: Interpretive Data U rine pH is affected by diet, medications, systemic acid-base disturbances, and renal tubular function. pH may affect urinary stone formation. For example, urine pH below 6.0 may help reduce the tendency for calcium phosphate stones and pH greater than 6.0 may reduce the tendency for uric acid stone formation. Source: [facility] [employer] Current Interpretive Data was last revised on [...] Reflex to microscopic UA will be performed. [facility] Urine 08/23/2024 7:01 PM CDT 08/23/2024 7:15 PM CDT Kinga Jones NP LAB URINE ORDERABLES Angeles l Result Performing Organization Address City/[facility]/ZIP Co de Phone Number [facility] [place] [address] * Protein / creatinine ratio, urine, random (08/23/2024 7:01 PM CDT) Protein, ur, quant 6.4 mg/dL Comment: Interpretive Data No reference range established. Current interpretive data was last revised 2018. Creatinine Ur 74.0 mg/dL [facility] Comment: Interpretive Data No reference range established. Current interpretive data was last revised 2018. Protein/creatinin e ratio 86.5 0.0 - 180.0 mg/g CR [facility] Urine 08/23/2024 7:01 PM CDT 08/23/2024 7:28 PM CDT Kinga Jones NP LAB URINE ORDERABLES Angeles l Result Performing Organization Address [facility] Co de Phone Number [facility] [place] [address] * (ABNORMAL) Urinalysis, microscopic only (08/23/2024 7:01 PM CDT) WBC, ur 0-5 0 - 5 /HPF RBC, ur 6-10(A) 0 - 2 /HPF [facility] Urine 08/23/2024 7:01 PM CDT 08/23/2024 7:15 PM CDT Kinga Jones NP LAB URINE ORDERABLES Angeels l Result Performing Organization Address City/[facility]/ZIP Co de Phone Number [facility] [place] [address] * Urine culture Urine, clean voided (08/23/2024 7:01 PM CDT) Pathologist [facility] Report Final Report: Less than 100,000 colonies/mL (clinically insignificant growth based on current clinical standards) Organism (CLINICALLY INSIGNIFICANT GROWTH [facility] Urine, clean voided 08/23/2024 7:01 PM CDT 08/23/2024 8:52 PM CDT Narrative [facility] - 08/25/2024 8:02 AM CDT Indications for Culture:->Other (specify) Other Indication:->elevated creatinine Specimen received in a sterile container. Testing performed by [facility] ([phone]) us Kinga Jones NP LAB MICROBIOLOGY - GENERA L ORDERABLES Final Result Performing Organization Address City/[facility]/ZIP Co de Phone Number [facility] Department [place] [address] * Immunotyping, serum with interpretation (08/23/2024 6:04 PM CDT) [facility] Immunosubtraction Please see comment Comment: NO PARAPROTEIN DETECTED Reviewed and signed by Fernando Nunez MD, PhD 08/24/2024 Blood 08/23/2024 6:04 PM CDT 08/23/2024 6:13 PM CDT us Hermelindo Butler MD LAB BLOOD ORDER ELANA Final Result Performing Organization Address City/[facility] Co de Phone Number [facility] [place] [employer] [address] * (ABNORMAL) eGFR (08/23/2024 6:04 PM CDT) [facility] eGFR 19(L) >=60 mL/min/1. 73 m2 Comment: [...] LAB BLOOD ORDER ELANA Final Result [facility] Department [place] [address] * (ABNORMAL) Differential, auto (08/23/2024 6:04 PM CDT) Neutrophil abs 6.5 1.5 - 6.5 K/cumm Imm gran abs 0.0 0.0 - 0.1 K/cumm [facility] Lymphocyte abs 0.7(L) 0.8 - 3.3 K/cumm [facility] Monocyte abs 0.6 0.2 - 0.8 K/cumm [facility] Eosinophil abs 0.6(H) 0.0 - 0.5 K/cumm [facility] Basophil abs 0.0 0.0 - 0.1 K/cumm [facility] Neutrophil pct 77.0 % [facility] Comment: Interpretive Data Percent cell count reference ranges are not reported, since discordance with absolute values may lead to misinterpretation of CBC data. Current Interpretive Data was last revised on 2017. Imm gran pct 0.5 % [facility] Comment: Interpretive Data Percent cell count reference ranges are not reported, since discordance with absolute values may lead to misinterpretation of CBC data. Current Interpretive Data was last revised on 2017. Lymphocyte pct 8.3 % [facility] Comment: Interpretive Data Percent cell count reference ranges are not reported, since discordance with absolute values may lead to misinterpretation of CBC data. Current Interpretive Data was last revised on 2017. Monocyte pct 7.3 % [facility] Comment: Interpretive Data Percent cell count [...] on 2017. Basophil pct 0.4 % [facility] Comment: Interpretive Data Percent cell count reference ranges are not reported, since discordance with absolute values may lead to misinterpretation of CBC data. Current Interpretive Data was last revised on 2017. Blood 08/23/2024 6:04 PM CDT 08/23/2024 6:12 PM CDT us Hermelindo Butler MD LAB BLOOD ORDER ELANA Final Result [facility] [facility] Department [place] [address] * (ABNORMAL) Immunoglobulin free light chains (08/23/2024 6:04 PM CDT) Leshara/Lambda ratio [facility] <0.40 0.26 - 1.65 Comment: Interpretive Data The Binding Site FreeLite assay procedure was used. Results from different manufacturers or methods may not be comparable. Serial testing should be performed using the same methods and instrumentation. Current Interpretive Data was last revised on 2023. Leshara free light chain [facility] <0.06(L) 0.33 - 1.94 mg/dL MT [facility] Comment: Interpretive Data The Binding Site FreeLite assay procedure was used. Results from different manufacturers or methods may not be comparable. Serial testing should be performed using the same methods and instrumentation. Current Interpretive Data was last revised on 2023. Lambda free light chain [facility] 0.15(L) 0.57 - 2.63 mg/dL [facility] Comment: Interpretive Data The Binding Site FreeLite assay procedure was used. Results from different manufacturers or methods may not be comparable. Serial testing should be performed using the same methods and instrumentation. Current Interpretive Data was last revised on 2023. Blood 08/23/2024 6:04 PM CDT 08/23/2024 6:12 PM CDT us Hermelindo Butler MD LAB BLOOD ORDER ELANA Final Result [facility] Department [place] [address] * (ABNORMAL) CBC with auto differential (08/23/2024 6:04 PM CDT) WBC 8.5 3.8 - 9.9 K/cumm Hgb 11.8(L) 13.0 - 17.5 g/dL [facility] Hct 35.6(L) 38.9 - 50.3 % [facility] Plt 131(L) 150 - 400 K/cumm [facility] MPV 9.8 9.1 - 12.3 fL [facility] RBC 3.78(L) 4.30 - 5.80 M/cumm [facility] MCV 94.2 81.3 - 96.4 fL [facility] MCH 31.2 27.1 - 33.3 pg [facility] MCHC 33.1 32.3 - 35.7 g/dL [facility] RDW CV 15.2(H) 11.1 - 14.9 % [facility] RDW SD 51.2(H) 35.7 - 48.1 fL [facility] NRBC abs 0.00 0.00 - 0.01 K/cumm [facility] Blood 08/23/2024 6:04 PM CDT 08/23/2024 6:12 PM CDT Hermelindo Butler MD LAB BLOOD ORDER ELANA Final Result MT [facility] Department [place] [address] * (ABNORMAL) Uric acid (08/23/2024 6:04 PM CDT) Uric acid 9.5(H) 3.0 - 8.0 mg/dL Blood 08/23/2024 6:04 PM CDT 08/23/2024 6:13 PM CDT Hermelindo Butler MD LAB BLOOD ORDER ELANA Final Result Performing Organization Address [facility] Co de Phone Number MT [facility] Department [place] [address] * (ABNORMAL) Protein electrophoresis with reflex, serum with interpretation (08/23/2024 6:04 PM CDT) Protein, sr 5.9(L) 6.2 - 8.2 g/dL Albumin 3.9 3.2 - 5.0 g/dL [facility] Alpha-1 globulin 0.4 0.2 - 0.4 g/dL [facility] Alpha-2 globulin 0.7 0.5 - 1.0 g/dL [facility] Beta-1 globulin 0.4 0.3 - 0.6 g/dL [facility] Beta-2 globulin 0.3 0.2 - 0.6 g/dL [facility] Gamma globulin 0.2(L) 0.5 - 1.7 g/dL [facility] SPEP interp Please see comment [facility] Comment: No apparent monoclonal peak Decreased gamma globulins Electrophoretic pattern appears similar to previous sample 08/04/24 See immunotyping for further information Reviewed and signed by Fernando Nunez MD, PhD 08/24/2024 Blood 08/23/2024 6:04 PM CDT 08/23/2024 6:13 PM CDT Hermelindo Butler MD LAB BLOOD ORDER ELANA Final Result Performing Organization Address [facility] de Phone Number [facility] [place] [address] * (ABNORMAL) Phosphorus (08/23/2024 6:04 PM CDT) Phosphorus, pl 4.7(H) 2.3 - 4.5 mg/dL Blood 08/23/2024 6:04 PM CDT 08/23/2024 6:13 PM CDT Hermelindo Butler MD LAB BLOOD ORDER ELANA Final Result Performing Organization Address [facility] de Phone Number [facility] [place] [address] * Magnesium (08/23/2024 6:04 PM CDT) Pathologist [facility] Magnesium 1.9 1.4 - 2.5 mg/dL Blood 08/23/2024 6:04 PM CDT 08/23/2024 6:13 PM CDT Hermelindo Butler MD LAB BLOOD ORDER ELANA Final Result Performing Organization Address [facility] de Phone Number [facility] [place] [address] * Lactate dehydrogenase (LD) (08/23/2024 6:04 PM CDT) Lactate dehydrogenase (LDH) 198 100 - 250 Units/L Blood 08/23/2024 6:04 PM CDT 08/23/2024 6:13 PM CDT Hermelindo Butler MD LAB BLOOD ORDER ELANA Final Result Performing Organization Address [facility] Co de Phone Number [facility] [place] [employer] [place] [address] * (ABNORMAL) IgA (08/23/2024 6:04 PM CDT) Immunoglobulin A <50(L) 70 - 400 mg/dL Blood 08/23/2024 6:04 PM CDT 08/23/2024 6:13 PM CDT Hermelindo Butler MD LAB BLOOD ORDER ELANA Final Result Performing Organization Address [facility] [place] [address] * (ABNORMAL) IgM (08/23/2024 6:04 PM CDT) Pathologist [facility] Immunoglobulin M <25(L) 40 - 230 mg/dL Blood 08/23/2024 6:04 PM CDT 08/23/2024 6:13 PM CDT Hermelindo Butler MD LAB BLOOD ORDER ELANA Final Result Performing Organization Address [facility] Co de Phone Number [facility] [place] [address] * (ABNORMAL) IgG (08/23/2024 6:04 PM CDT) Pathologist [facility] Immunoglobulin G <300(L) 700 - 1,600 mg/dL Blood 08/23/2024 6:04 PM CDT 08/23/2024 6:13 PM CDT Hermelindo Butler MD LAB BLOOD ORDER ELANA Final Result [facility] [place] [address] * (ABNORMAL) Comprehensive metabolic panel (08/23/2024 6:04 PM CDT) Sodium 146(H) 135 - 145 mmol/L Potassium, pl 3.8 3.3 - 4.9 mmol/L [facility] Chloride 107 97 - 110 mmol/L [facility] CO2 26 22 - 32 mmol/L [facility] Anion gap 13 2 - 15 mmol/L [facility] BUN 58(H) 6 - 25 mg/dL [facility] Creatinine 3.37(H) 0.80 - 1.30 mg/dL [facility] Glucose 89 70 - 199 mg/dL [facility] Comment: Interpretive Data Fasting glucose >/= 126 [...] Calcium 8.9 8.5 - 10.3 mg/dL [facility] Bilirubin, total 0.4 0.1 - 1.2 mg/dL [facility] Protein, pl 6.2(L) 6.5 - 8.5 g/dL [facility] Albumin 4.0 3.5 - 5.0 g/dL [facility] Alk phos 68 40 - 130 Units/L [facility] ALT 16 7 - 55 Units/L [facility] AST 12 10 - 50 Units/L [facility] Blood 08/23/2024 6:04 PM CDT 08/23/2024 6:13 PM CDT us Hermelindo Butler MD LAB BLOOD ORDER ELANA Final Result [facility] Department [place] [address] * SCAN - LABS (08/20/2024) us Provider Scanning Final Result * SCAN - LABS (08/10/2024) us Provider Scanning Final Result * US Kidney Complete (08/06/2024 2:42 PM MACHINE BRUSHER) Anatomical Region Laterality Modality Kidney N/A Ultrasound 08/06/2024 3:27 PM MACHINE BRUSHER Impressions 08/06/2024 3:27 PM MACHINE BRUSHER 1. Mild nephromegaly with mild to moderate hydronephrosis bilaterally. 2. Incomplete bladder emptying with post void bladder residual of 397 mL. Electronically signed by: Dylan Tinajero M.D. Narrative 08/06/2024 3:27 PM MACHINE BRUSHER EXAMINATION: COMPLETE RENAL SONOGRAM HISTORY: Rising creatinine. [...] by: Dylan Tinajero M.D. Hermelindo Butler MD [facility] PROCEDUR ES Final Result * (ABNORMAL) Urinalysis reflex to microscopic (08/06/2024 9:19 AM MACHINE BRUSHER) Color, ur Straw Yellow Clarity, ur Clear Clear [facility] Specific gravity, ur 1.013 1.003 - 1.030 [facility] pH, urine 5.5 [facility] Comment: Interpretive Data U rine pH is affected by diet, medications, systemic acid-base disturbances, and renal tubular function. pH may affect urinary stone formation. For example, urine pH below 6.0 may help reduce the tendency for calcium phosphate stones and pH greater than 6.0 may reduce the tendency for uric acid stone formation. Source: [facility] [employer] Current Interpretive Data was last revised on 2017 Protein, ur ql Negative Negative [facility] Glucose, ur ql Negative Negative [facility] Ketones, ur Negative Negative [facility] Bilirubin, ur Negative Negative [facility] Blood, ur 3+(A) Negative [facility] Urobilinogen, ur <2.0 <2.0 mg/dL [facility] Nitrite, ur Negative Negative [facility] Leukocyte esterase, ur Trace(A) [facility] UA reflex comment Reflex to microscopic UA will be performed. [facility] Urine 08/06/2024 9:19 AM MACHINE BRUSHER 08/06/2024 9:19 AM MACHINE BRUSHER Lyndsey Fagan [employer] LAB URINE ORDERABLES Angeles nicole Result [facility] Department [place] [address] * Protein / creatinine ratio, urine, random (08/06/2024 9:19 AM MACHINE BRUSHER) Protein, ur, quant 7.9 mg/dL Comment: Interpretive Data No reference range established. Current interpretive data was last revised 2018. Creatinine Ur 77.4 mg/dL [facility] Comment: Interpretive Data No reference range established. Current interpretive data was last revised 2018. Protein/creatinin e ratio 102.1 0.0 - 180.0 mg/g CR [facility] Urine 08/06/2024 9:19 AM MACHINE BRUSHER 08/06/2024 9:41 AM MACHINE BRUSHER Lyndsey Fagan NP LAB URINE ORDERABLES Angeles l Result Performing Organization Address [facility] de Phone Number [facility] [place] [address] * (ABNORMAL) Urinalysis, microscopic only (08/06/2024 9:19 AM MACHINE BRUSHER) WBC, ur 6-10(A) 0 - 5 /HPF RBC, ur 21-50(A) 0 - 2 /HPF [facility] Bacteria, ur Trace(A) [facility] Mucous, ur Present(A) [facility] Urine 08/06/2024 9:19 AM MACHINE BRUSHER 08/06/2024 9:19 AM MACHINE BRUSHER Lyndsey Fagan NP LAB URINE ORDERABLES Angeles l Result Performing Organization Address [facility] de Phone Number [facility] Department [place] [address] * (ABNORMAL) eGFR (08/06/2024 7:43 AM MACHINE BRUSHER) eGFR 31(L) >=60 mL/min/1. 73 m2 Comment: [...] last reviewed 2021. Blood 08/06/2024 7:43 AM MACHINE BRUSHER 08/06/2024 7:52 AM MACHINE BRUSHER us Hermelindo Butler MD LAB BLOOD ORDER ELANA Final Result MT [facility] Department [place] [address] * (ABNORMAL) Differential, auto (08/06/2024 7:43 AM MACHINE BRUSHER) Neutrophil abs 5.4 1.5 - 6.5 K/cumm Comment:Testing performed by : [facility], [address] [place] [phone] Lymphocyte abs 0.8 0.8 - 3.3 K/cumm [facility] Comment:Testing performed by : [facility], [address] [place] [phone] Monocyte abs 0.5 0.2 - 0.8 K/cumm [facility] Comment:Testing performed by : [facility], [address] [place] [phone] Eosinophil abs 0.7(H) 0.0 - 0.5 K/cumm [facility] Comment:Testing performed by : [facility], [address] [place] [phone] Basophil abs 0.0 0.0 - 0.1 K/cumm [facility] Comment:Testing performed by : [facility], [address] [place] [phone] Neutrophil pct 72.4 % [facility] Comment: Interpretive Data Percent cell count reference ranges are not reported, since discordance with absolute values may lead to misinterpretation of CBC data. Current Interpretive Data was last revised on 2017. Testing performed by: [facility], [address] [place] [phone] Lymphocyte pct 10.4 % [facility] Comment: Interpretive Data Percent cell count reference ranges are not reported, since discordance with absolute values may lead to misinterpretation of CBC data. Current Interpretive Data was last revised on 2017. Testing performed by: [facility], [address] [place] [phone] Monocyte pct 7.3 % [facility] Comment: Interpretive Data Percent cell count reference ranges are not reported, since discordance with absolute values may lead to misinterpretation of CBC data. Current Interpretive Data was last revised on 2017. Testing performed by: [facility], [address] [place] [address] Eosinophil pct 9.4 % MT [facility] Comment: Interpretive Data Percent cell count reference ranges are not reported, since discordance with absolute values may lead to misinterpretation of CBC data. Current Interpretive Data was last revised on 2017. Testing performed by: [facility], [address] [place] [phone] Basophil pct 0.5 % [facility] Comment: Interpretive Data Percent cell count reference ranges are not reported, since discordance with absolute values may lead to misinterpretation of CBC data. Current Interpretive Data was last revised on 2017. Testing performed by: [facility], [address] [place] [phone] Blood 08/06/2024 7:43 AM MACHINE BRUSHER 08/06/2024 7:51 AM MACHINE BRUSHER us Hermelindo Butler MD LAB BLOOD ORDER ELANA Final Result MT [facility] Department [place] [address] * (ABNORMAL) CBC with auto differential (08/06/2024 7:43 AM MACHINE BRUSHER) WBC 7.5 3.8 - 9.9 K/cumm Comment:Testing performed by : [facility], [address] [place], [place] [phone] Hgb 13.7 13.0 - 17.5 g/dL [facility] Comment:Testing performed by : [facility], [address] [place], [place] [phone] Hct 40.6 38.9 - 50.3 % [facility] Comment:Testing performed by : [facility], [address] [place], [place] [phone] Plt 169 150 - 400 K/cumm [facility] Comment:Testing performed by : [facility], [address] [place], [place] [phone] MPV 7.5 6.8 - 10.4 fL [facility] Comment:Testing performed by : [facility], [address] [place], [place] [phone] RBC 4.37 4.30 - 5.80 M/cumm [facility] Comment:Testing performed by : [facility], [address] [place], [place] [phone] MCV 92.7 81.3 - 96.4 fL [facility] Comment:Testing performed by : [facility], [address] [place], [place] [phone] MCH 31.3 27.1 - 33.3 pg [facility] Comment:Testing performed by : [facility], [address] [place] [address] MCHC 33.8 32.3 - 35.7 g/dL [facility] Comment:Testing performed by : [facility], [address] [place] [address] RDW CV 16.5(H) 11.1 - 14.9 % [facility] Comment:Testing performed by : [facility], [address] [place] [address] NRBC abs 0.00 0.00 - 0.01 K/cumm [facility] Comment:Testing performed by : [facility], [address] [place] [phone] Blood 08/06/2024 7:43 AM MACHINE BRUSHER 08/06/2024 7:51 AM MACHINE BRUSHER Hermelindo Butler MD LAB BLOOD ORDER ELANA Final Result Performing Organization Address [facility] de Phone Number [facility] Department [place] [address] * (ABNORMAL) PSA diagnostic (08/06/2024 7:43 AM MACHINE BRUSHER) PSA-Total 6.28(H) <=6.20 ng/mL Comment: Interpretive Data [...] last revised 21. Blood 08/06/2024 7:43 AM MACHINE BRUSHER 08/06/2024 7:52 AM MACHINE BRUSHER Hermelindo Butler MD LAB BLOOD ORDER ELANA Final Result Performing Organization Address [facility] de Phone Number MT [facility] Department [place] [address] * Lactate dehydrogenase (LD) (08/06/2024 7:43 AM MACHINE BRUSHER) Lactate dehydrogenase (LDH) 161 100 - 250 Units/L Blood 08/06/2024 7:43 AM MACHINE BRUSHER 08/06/2024 7:52 AM MACHINE BRUSHER Hermelindo Butler MD LAB BLOOD ORDER ELANA Final Result MT [facility] Department [place] [address] * (ABNORMAL) Lipid panel (08/06/2024 7:43 AM MACHINE BRUSHER) Cholesterol 128 30 - 199 mg/dL Comment: [...] on 2018. Triglycerides 149 <=149 mg/dL MT [facility] Comment: Interpretive Data Ages < or [...] revised on 2018. HDL 38(L) >=40 mg/dL [facility] Comment: Interpretive Data Ages < or [...] on 2018. LDL, calculated 64 <=129 mg/dL [facility] Comment: Interpretive Data Ages < or = [...] on 2024. Non-HDL Cholesterol 90 mg/dL [facility] Comment: Interpretive Data Ages < or = [...] revised on 2018. Chol/HDL ratio 3 [facility] Blood 08/06/2024 7:43 AM MACHINE BRUSHER 08/06/2024 7:52 AM MACHINE BRUSHER us Hermelindo Butler MD LAB BLOOD ORDER ELANA Final Result [facility] Department [place] [address] * (ABNORMAL) Comprehensive metabolic panel (08/06/2024 7:43 AM MACHINE BRUSHER) Sodium 145 135 - 145 mmol/L Potassium, pl 4.2 3.3 - 4.9 mmol/L [facility] Chloride 108 97 - 110 mmol/L [facility] CO2 30 22 - 32 mmol/L [facility] Anion gap 7 2 - 15 mmol/L [facility] BUN 51(H) 6 - 25 mg/dL [facility] Creatinine 2.21(H) 0.80 - 1.30 mg/dL [facility] Glucose 113 70 - 199 mg/dL [facility] Comment: Interpretive Data Fasting glucose >/= 126 [...] Calcium 9.2 8.5 - 10.3 mg/dL [facility] Bilirubin, total 0.5 0.1 - 1.2 mg/dL [facility] Protein, pl 6.2(L) 6.5 - 8.5 g/dL [facility] Albumin 4.1 3.5 - 5.0 g/dL [facility] Alk phos 61 40 - 130 Units/L [facility] ALT 15 7 - 55 Units/L [facility] AST 16 10 - 50 Units/L [facility] Blood 08/06/2024 7:43 AM MACHINE BRUSHER 08/06/2024 7:52 AM MACHINE BRUSHER us Hermelindo Butler MD LAB BLOOD ORDER ELANA Final Result [facility] Department [place] [address] * aPTT (08/03/2024 9:21 AM MACHINE BRUSHER) Pathologist [facility] aPTT 31 28 - 38 sec Comment: Interpretive Data Heparin therapeutic range: 66.0 - 100.0 seconds. Range based on correlation with therapeutic heparin activity range of 0.3 - 0.7 Units/mL. Current interpretive data was last revised on 2023. Blood 08/03/2024 9:21 AM MACHINE BRUSHER 08/03/2024 9:47 AM MACHINE BRUSHER Hermelindo Butler MD LAB BLOOD ORDER ELANA Final Result Performing Organization Address [facility] de Phone Number [facility] [employer] [place] [place] [address] * Protime-INR (08/03/2024 9:21 AM MACHINE BRUSHER) [facility] PT 11.5 9.7 - 13.0 sec INR 1.06 0.90 - 1.20 [facility] Comment: Interpretive data Oral anticoagulant therapeutic ranges: Venous thromboembolism prophylaxis or treatment: 2.0-3.0 CARDIOLOGY Standard range: 2.0-3.0 High-intensity range: 2.5-3.5 Refer to indication-specific guidelines for appropriate target ranges for prosthetic heart valve replacement. Current interpretive data was last revised on 2019. Blood 08/03/2024 9:21 AM MACHINE BRUSHER 08/03/2024 9:47 AM MACHINE BRUSHER Hermelindo Butler MD LAB BLOOD ORDER ELANA Final Result Performing Organization Address [facility] de Phone Number [facility] [employer] [place] [place] [address] * Immunotyping, serum with interpretation (08/03/2024 7:40 AM MACHINE BRUSHER) Pathologist [facility] Immunosubtraction Please see comment Comment: NO PARAPROTEIN DETECTED Reviewed and signed by Hermelindo Mcnulty MD 08/04/2024 Blood 08/03/2024 7:40 AM MACHINE BRUSHER 08/03/2024 8:24 AM MACHINE BRUSHER Hermelindo Butler MD LAB BLOOD ORDER ELANA Final Result MT [facility] Department [place] [address] * (ABNORMAL) eGFR (08/03/2024 7:40 AM MACHINE BRUSHER) Pathologist [facility] eGFR 37(L) >=60 mL/min/1. 73 m2 [...] last reviewed 2021. Blood 08/03/2024 7:40 AM MACHINE BRUSHER 08/03/2024 7:49 AM MACHINE BRUSHER Hermelindo Butler MD LAB BLOOD ORDER ELANA Final Result MT [facility] Department [place] [address] * (ABNORMAL) Differential, auto (08/03/2024 7:40 AM MACHINE BRUSHER) Neutrophil abs 5.6 1.5 - 6.5 K/cumm Comment:Testing performed by : [facility], [address] [place] [phone] Lymphocyte abs 0.9 0.8 - 3.3 K/cumm [facility] Comment:Testing performed by : [facility], [address] [place] [phone] Monocyte abs 0.6 0.2 - 0.8 K/cumm [facility] Comment:Testing performed by : [facility], [address] [place], [place] [phone] Eosinophil abs 0.8(H) 0.0 - 0.5 K/cumm [facility] Comment:Testing performed by : [facility], [address] [place] [phone] Basophil abs 0.0 0.0 - 0.1 K/cumm [facility] Comment:Testing performed by : [facility], [address] [place] [phone] Neutrophil pct 70.4 % [facility] Comment: Interpretive Data Percent cell count reference ranges are not reported, since discordance with absolute values may lead to misinterpretation of CBC data. Current Interpretive Data was last revised on 2017. Testing performed by: [facility], [address] [place] [phone] Lymphocyte pct 11.2 % [facility] Comment: Interpretive Data Percent cell count reference ranges are not reported, since discordance with absolute values may lead to misinterpretation of CBC data. Current Interpretive Data was last revised on 2017. Testing performed by: [facility], [address] [place] [phone] Monocyte pct 7.7 % [facility] Comment: Interpretive Data Percent cell count reference ranges are not reported, since discordance with absolute values may lead to misinterpretation of CBC data. Current Interpretive Data was last revised on 2017. Testing performed by: [facility], [address] [place] [phone] Eosinophil pct 10.1 % [facility] Comment: Interpretive Data Percent cell count reference ranges are not reported, since discordance with absolute values may lead to misinterpretation of CBC data. Current Interpretive Data was last revised on 2017. Testing performed by: [facility], [address] [place] [address] Basophil pct 0.6 % MT [facility] Comment: Interpretive Data Percent cell count reference ranges are not reported, since discordance with absolute values may lead to misinterpretation of CBC data. Current Interpretive Data was last revised on 2017. Testing performed by: [facility], [facility] [place] [address] Blood 08/03/2024 7:40 AM MACHINE BRUSHER 08/03/2024 7:47 AM MACHINE BRUSHER Hermelindo Butler MD LAB BLOOD ORDER ELANA Final Result MT SU[facility]Z [facility] Department [place] [address] * (ABNORMAL) Immunoglobulin free light chains (08/03/2024 7:40 AM MACHINE BRUSHER) Leshara/Lambda ratio [facility] See Comment 0.26 - 1.65 Comment: Unable to calculate exact result. Interpretive Data The Binding Site FreeLite assay procedure was used. Results from different manufacturers or methods may not be comparable. Serial testing should be performed using the same methods and instrumentation. Current Interpretive Data was last revised on 2023. Leshara free light chain [facility] <0.06(L) 0.33 - [...] revised on 2023. Blood 08/03/2024 7:40 AM MACHINE BRUSHER 08/03/2024 8:24 AM MACHINE BRUSHER us Hermelindo Butler MD LAB BLOOD ORDER ELANA Final Result MT [facility] Department [place] [address] * (ABNORMAL) CBC with auto differential (08/03/2024 7:40 AM MACHINE BRUSHER) WBC 7.9 3.8 - 9.9 K/cumm Comment:Testing performed by : [facility], [address] [place] [address] Hgb 13.7 13.0 - 17.5 g/dL MT SU[facility] Comment:Testing performed by : [facility], [address] [place] [address] Hct 41.5 38.9 - 50.3 % MT SUAREZ Comment:Testing performed by : [facility], [address] [place] [address] Plt 163 150 - 400 K/cumm [facility]ERFRANK SUAREZ Comment:Testing performed by : [facility], [address] [place] [address] MPV 7.8 6.8 - 10.4 fL [facility] Comment:Testing performed by : [facility], [address] [place] [address] RBC 4.50 4.30 - 5.80 M/cumm [facility] Comment:Testing performed by : [facility], [address] [place] [address] MCV 92.1 81.3 - 96.4 fL [facility] Comment:Testing performed by : [facility], [address] [place] [address] MCH 30.4 27.1 - 33.3 pg [facility] Comment:Testing performed by : [facility], [address] [place] [address] MCHC 33.0 32.3 - 35.7 g/dL MT [facility] Comment:Testing performed by : [facility], [address] [place] [phone] RDW CV 16.6(H) 11.1 - 14.9 % [facility] Comment:Testing performed by : [facility], [address] [place] [phone] NRBC abs 0.00 0.00 - 0.01 K/cumm MT [facility] Comment:Testing performed by : [facility], [address] [place] [phone] Blood 08/03/2024 7:40 AM MACHINE BRUSHER 08/03/2024 7:47 AM MACHINE BRUSHER Hermelindo Butler MD LAB BLOOD ORDER ELANA Final Result [facility] Department [place] [address] * (ABNORMAL) Protein electrophoresis with reflex, serum with interpretation (08/03/2024 7:40 AM MACHINE BRUSHER) Protein, sr 5.7(L) 6.2 - 8.2 g/dL Albumin 3.8 3.2 - 5.0 g/dL [facility] Alpha-1 globulin 0.3 0.2 - 0.4 g/dL [facility] Alpha-2 globulin 0.6 0.5 - 1.0 g/dL [facility] Beta-1 globulin 0.4 0.3 - 0.6 g/dL [facility] Beta-2 globulin 0.3 0.2 - 0.6 g/dL [facility] Gamma globulin 0.2(L) 0.5 - 1.7 g/dL [facility] SPEP interp Please see comment [facility] Comment: No apparent monoclonal peak Decreased gamma globulins Electrophoretic pattern appears similar to previous sample 07/14/24 *See immunotyping for further information Reviewed and signed by Hermelindo Mcnulty MD 08/04/2024 Blood 08/03/2024 7:40 AM MACHINE BRUSHER 08/03/2024 8:24 AM MACHINE BRUSHER Hermelindo Butler MD LAB BLOOD ORDER ELANA Final Result Performing Organization Address [facility] de Phone Number [facility] [place] [address] * Magnesium (08/03/2024 7:40 AM MACHINE BRUSHER) Pathologist [facility] Magnesium 2.2 1.4 - 2.5 mg/dL Blood 08/03/2024 7:40 AM MACHINE BRUSHER 08/03/2024 9:36 AM MACHINE BRUSHER Hermelindo Butler MD LAB BLOOD ORDER ELANA Final Result Performing Organization Address [facility] Phone Number [facility] [place] [address] * Lactate dehydrogenase (LD) (08/03/2024 7:40 AM MACHINE BRUSHER) [facility] Lactate dehydrogenase (LDH) 172 100 - 250 Units/L Blood 08/03/2024 7:40 AM MACHINE BRUSHER 08/03/2024 7:49 AM MACHINE BRUSHER Hermelindo Butler MD LAB BLOOD ORDER ELANA Final Result Performing Organization Address [facility] [place] [address] * (ABNORMAL) Hemoglobin A1c (08/03/2024 7:40 AM MACHINE BRUSHER) [facility] Hgb A1C 5.8(H) 4.0 - 5.6 % Estimated Average Glucose 120 mg/dL [facility] Comment: The ADA recommends reporting an estimated Average Glucose (eAG) with all Hemoglobin A1c results using the equation derived from a study of 507 normal and diabetic adults. Minority populations were underrepresented and children were not included. (Diabetes Care 2020; 43(S1): J86-S76). The eAG is not equivalent to a fasting glucose. Blood 08/03/2024 7:40 AM MACHINE BRUSHER 08/03/2024 7:49 AM MACHINE BRUSHER Lyndsey Fagan SPINNING MULE OPERATOR LAB BLOOD ORDERABLES Angeles l Result Performing Organization Address City/[facility] Co de Phone Number [facility] [place] [address] * Gamma GT (08/03/2024 7:40 AM MACHINE BRUSHER) GGT 23 10 - 50 Units/L Blood 08/03/2024 7:40 AM MACHINE BRUSHER 08/03/2024 9:36 AM MACHINE BRUSHER Hermelindo Butler MD LAB BLOOD ORDER ELANA Final Result Performing Organization Address [facility] de Phone Number [facility] [place] [employer] [place] [address] * (ABNORMAL) IgA (08/03/2024 7:40 AM MACHINE BRUSHER) Pathologist [facility] Immunoglobulin A <50(L) 70 - 400 mg/dL Blood 08/03/2024 7:40 AM MACHINE BRUSHER 08/03/2024 8:09 AM MACHINE BRUSHER Hermelindo Butler MD LAB BLOOD ORDER ELANA Final Result Performing Organization Address [facility] Co de Phone Number [facility] [place] [employer] [address] * (ABNORMAL) IgM (08/03/2024 7:40 AM MACHINE BRUSHER) Immunoglobulin M <25(L) 40 - 230 mg/dL Blood 08/03/2024 7:40 AM MACHINE BRUSHER 08/03/2024 8:09 AM MACHINE BRUSHER Hermelindo Butler MD LAB BLOOD ORDER ELANA Final Result [facility] Department [place] [address] * (ABNORMAL) IgG (08/03/2024 7:40 AM MACHINE BRUSHER) Pathologist [facility] Immunoglobulin G <300(L) 700 - 1,600 mg/dL Blood 08/03/2024 7:40 AM MACHINE BRUSHER 08/03/2024 8:09 AM MACHINE BRUSHER Hermelindo Butler MD LAB BLOOD ORDER ELANA Final Result Performing Organization Address [facility] de Phone Number [facility] Department [place] [address] * (ABNORMAL) Comprehensive metabolic panel (08/03/2024 7:40 AM MACHINE BRUSHER) [facility] Sodium 141 135 - 145 mmol/L Potassium, pl 4.0 3.3 - 4.9 mmol/L [facility] Chloride 104 97 - 110 mmol/L [facility] CO2 30 22 - 32 mmol/L [facility] Anion gap 7 2 - 15 mmol/L [facility] BUN 47(H) 6 - 25 mg/dL [facility] Creatinine 1.92(H) 0.80 - 1.30 mg/dL [facility] Glucose 116 70 - 199 mg/dL [facility] Comment: Interpretive Data Fasting glucose >/= 126 [...] Calcium 9.2 8.5 - 10.3 mg/dL [facility] Bilirubin, total 0.7 0.1 - 1.2 mg/dL [facility] Protein, pl 6.2(L) 6.5 - 8.5 g/dL [facility] Albumin 3.9 3.5 - 5.0 g/dL [facility] Alk phos 63 40 - 130 Units/L [facility] ALT 15 7 - 55 Units/L [facility] AST 17 10 - 50 Units/L [facility] Blood 08/03/2024 7:40 AM MACHINE BRUSHER 08/03/2024 7:49 AM MACHINE BRUSHER us Hermelindo Butler MD LAB BLOOD ORDER ELANA Final Result [facility] Department [place] [address] * (ABNORMAL) Urinalysis reflex to microscopic and culture Urine, clean voided (08/03/2024 7:30 AM MACHINE BRUSHER) Color, ur Straw Yellow Clarity, ur Clear Clear [facility] Specific gravity, ur 1.012 1.003 - 1.030 [facility] pH, urine 5.5 [facility] Comment: Interpretive Data U rine pH is affected by diet, medications, systemic acid-base disturbances, and renal tubular function. pH may affect urinary stone formation. For example, urine pH below 6.0 may help reduce the tendency for calcium phosphate stones and pH greater than 6.0 may reduce the tendency for uric acid stone formation. Source: [facility] [employer] Current Interpretive Data was last revised on 2017 Protein, ur ql Negative Negative [facility] Glucose, ur ql Negative Negative [facility] Ketones, ur Negative Negative [facility] Bilirubin, ur Negative Negative [facility] Blood, ur 2+(A) Negative [facility] Urobilinogen, ur <2.0 <2.0 mg/dL [facility] Nitrite, ur Negative Negative [facility] Leukocyte esterase, ur Negative [facility] UA reflex comment Reflex to microscopic UA will be performed. [facility] Urine, clean voided 08/03/2024 7:30 AM MACHINE BRUSHER 08/03/2024 7:30 AM MACHINE BRUSHER Lyndsey Fagan NP LAB MICROBIOLOGY - GENERA L ORDERABLES Final Result Performing Organization Address [facility] Co de Phone Number [facility] [place] [address] * (ABNORMAL) Urinalysis, microscopic only (08/03/2024 7:30 AM MACHINE BRUSHER) WBC, ur 6-10(A) 0 - 5 /HPF RBC, ur 11-20(A) 0 - 2 /HPF [facility] Epithelial cells, squamous, ur 1-5 0 - 5 /HPF [facility] Bacteria, ur Trace(A) [facility] Culture Reflex Comment Reflex conditions for urine culture (WBC >10) not met. [facility] Urine, clean voided 08/03/2024 7:30 AM MACHINE BRUSHER 08/03/2024 7:30 AM MACHINE BRUSHER Lyndsey Fagan NP LAB URINE ORDERABLES Angeles l Result Performing Organization Address [facility] de Phone Number [facility] Department [place] [address] * Urine culture Urine, clean voided (08/03/2024 7:30 AM MACHINE BRUSHER) Report Final Report: No growth Urine, clean voided 08/03/2024 7:30 AM MACHINE BRUSHER 08/03/2024 9:59 AM MACHINE BRUSHER Narrative [facility] - 08/04/2024 11:14 AM MACHINE BRUSHER Testing performed by [facility] Micro[facility] Laboratory ([phone]) Hermelindo Butler MD LAB MICROBIOLOG Y - GENERAL ORDERABLES Final Result Performing Organization Address City/[facility] Co de Phone Number [facility] Department [place] [address] * Hepatitis C antibody (10/16/2021 9:50 AM CDT) Hep C Ab Nonreactive Nonreactive MT [facility] Comment:Antibodies to HCV no t detected. Does NOT exclude the possibility of recent exposure to HCV. Blood 10/16/2021 9:50 AM CDT 10/16/2021 11:22 AM CDT Hermelindo dupree MD LAB MICROBIOLOGY - GENERAL ORDERABLES Edited Result - Final MT [facility] Department [place] [address] from Last 3 Months or Most Recently Relevant to Health Maintenance Insurance MEDICARE AETNA SENIOR SUPPLEMENT MEDICARE AET SENIOR SUPPLEMENT MEDICARE AETNA SENIOR SUPPLEMENT Advance Directives For more information, please contact: [phone] Documents on File Type Date Recorded Patient Pigment Furnace Tender Expl anation ADVANCE DIRECTIVE 11/29/2017 11:05 AM FOX R OF WASTEWATER MANAGER ADVANCE DIRECTIVE 11/12/2017 3:59 PM POWER OF WASTEWATER MANAGER * Full Code (Latest Code Status [...] 2:28 PM 05/31/2021 2:39 PM Care Teams Blasting Worker Relationship Specialty Start Date End Date Jatin Gamble MD [address] [place] [address] PCP - General 10/07/16 Hermelindo Butler MD [address] [place] [address] Medical Oncologist/Hematologi Medical Oncology 12/02/17 Roberto Rojo MD [address] [place] [address] Medical Oncologist/Hematologi Hematology and Oncology 12/02/17 Jatin Gamble MD [address] [place] [address] Referring Physician Internal Medicine 12/02/17 Lyndsey Fagan NP [address] [place] [address] Nurse Practitioner Medical Oncology 08/03/20 Erlin Servin MD [address] [place] [address] Consulting Physician Otolaryngology 10/04/22 [place] [address] [place] [address] Consulting Physician Urology 05/28/23 Salvador Norris MD [facility] [address] [place] [address] Consulting Physician Infectious Diseases 09/15/24 Miscellaneous, Not In File 09/15/24
--- OUTSIDE RECORDS SUMMARY | 2024-10-12 15:41 | XMS_ITS | Encounter Summary ---
Author Organization [facility] Healthcare Address [address] [place] [address] Care Team Providers Care Supervisor Painting Department Name Role Phone Jatin Gamble MD Primary Care Provider Hermelindo Butler MD Unavailable Roberto Rojo MD Unavailable Jatin Gamble MD Unavailable [phone] Garry Dukes MD Unavailable [phone] Lyndsey Fagan NP Unavailable Erlin Servin MD Unavailable Julian Valdez MD Unavailable Salvador Norris MD Unavailable Miscellaneous, Not In File Unavailable Unava ilable Encounter Details Date Type Department Care Team (Late st Contact Info) Description 04/29/2022 Community Orders [facility] EpicCare Link Jatin Gamble MD [address] [place] [address] Elevated prostate specific antigen (PSA) (Primary Dx) Social History Tobacco Use Types Packs/Day Years Used Date Smoking Tobacco: Never Smokeless Tobacco: Never Alcohol Use Standard Drinks/Week Comments No 0 (1 standard drink = 0.6 oz pur e alcohol) Sex and Gender Information Value Date Recorded Sex Assigned at Not on file Legal Sex 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 MANAGER CONSUMER INSIGHTS Gender Identity Not on file Sexual Orientation [...] documented as of this encounter Care Teams Supervisor Painting Department Relationship Specialty Start Date End Date Jatin Gamble MD [address] [place] [address] PCP - General 10/07/16 Hermelindo Butler MD [address] [place] [address] [facility] 12/02/17 Roberto Rojo MD [address] [place] [id number] [facility] 12/02/17 Jatin Gamble MD [address] [place] [address] Referring Physician Internal Medicine 12/02/17 Garry Dukes MD [address] [place], [place] [id number] Referring Physician Urology 12/02/17 05/27/23 Lyndsey Fagan NP [address] [place] [address] Nurse Practitioner Medical Oncology 08/03/20 Erlin Servin MD [address] [place] [address] Consulting Physician Otolaryngology 10/04/22 [place] [address] [place] [address] Consulting Physician Urology 05/28/23 Salvador Norris MD [address] [place] [address] Consulting Physician Infectious Diseases 09/15/24 Miscellaneous, Not In File 09/15/24 documented as of this encounter
[2024-10-12 15:50] LABS: Add Urine Microscopic? YES; Appearance Urine Cloudy (Clear); Basophils Absolute Auto 0.05 K/mm3 (0.00-0.10); Basophils Percent Auto 0.6 % (0.0-1.0); Bilirubin Urine Negative (Negative); Blood Urine 1+ (Negative); Color Urine Light Yellow (Yellow); Eosinophils Absolute Auto 0.12 K/mm3 (0.02-0.50); Eosinophils Percent Auto 1.5 % (1.0-6.0); Glucose Urine UA Negative (Negative); Hematocrit 35.6 % (37.0-46.0); Hemoglobin 11.2 g/dL (12.4-15.3); Immature Granulocyte Absolute 0.08 K/mm3 (0.00-0.00); Ketones Urine Negative (Negative); Leukocyte Esterase Ur 3+ (Negative); Lymphocytes Absolute Auto 0.66 K/mm3 (1.10-4.50); Lymphocytes Percent Auto 8.4 % (18.0-42.0); Mean Corpuscular HGB Conc 31.5 g/dL (32-36); Mean Corpuscular Hemoglobin 30.9 pg (27.0-31.0); Mean Corpuscular Volume 98.3 fL (78.0-102.0); Mean Platelet Volume 9.4 fl (8.7-11.0); Monocytes Percent Auto 7.6 % (2.0-11.0); Neutrophils Absolute Auto 6.35 K/mm3 (1.70-7.20); Neutrophils Percent Auto 80.9 % (50.0-70.0); Nitrate Urine Negative (Negative); Platelet Count Result 201 K/mm3 (150-420); Protein Urine 1+ (Negative); Red Blood Count 3.62 M/mm3 (4.70-6.10); Red Cell Distribution Width 14.5 % (11.6-14.4); Specific Grav Ur 1.015 (1.010-1.020); Urobilinogen Urine 0.2 mg/dL (0.2-1.0); White Blood Count 7.9 K/mm3 (4.8-10.8)
[2024-10-12 16:10] LABS: Anion Gap 10 mmol/L (4-12); Blood Urea Nitrogen 39 mg/dL (7-18); Calcium 8.9 mg/dL (8.5-10.1); Carbon Dioxide 29 mmol/L (21-32); Chloride 99 mmol/L (98-108); Estimated Glomerular Filt Rate 30; Glucose 120 mg/dL (70-99); Osmolality Calculated 296 mOsm/kg (285-295); Potassium 3.5 mmol/L (3.5-5.1); Sodium 138 mmol/L (136-145)
[2024-10-12 16:39] LABS: Bacteria Urine 1+ /hpf; Squamous Epithelial Cell Urine Few /hpf (Few); WBC Urine >75 /hpf (0-3)
== END 2024-10-12 15:37 | disposition home or self-care (01) ==
PROVIDERS: PCP Internal Medicine; Visit Provider Internal Medicine
DX: N39.0 Urinary tract infection, site not specified (principal); N18.32 Chronic kidney disease, stage 3b
CPT/HCPCS: 36415; 80048; 81001; 85025; 87077; 87086; 87088; 87186

== ENCOUNTER 2024-10-21 08:57 | Outpatient (CLI) | payer MEDICARE, SELFPAY ==
--- OUTSIDE RECORDS SUMMARY | 2024-10-21 09:02 | XMS_ITS | Clinical Summary ---
Author Organization [facility] Address [address] [place] [address] Care Team Providers Care First Coat Operator Name Role Phone Unavailable Primary Care Provider [...]
--- OUTSIDE RECORDS SUMMARY | 2024-10-21 09:02 | XMS_ITS | Encounter Summary ---
Author Organization [facility] Address [address] [place] [address] Phone Care Team Providers Care Neonatal Nurse Name Role Phone Jatin Gamble MD Primary Care Provider [phone] Hermelindo Butler MD Unavailable Roberto Rojo MD Unavailable Jatin Gamble MD Unavailable Garry Dukes MD Unavailable [phone] Lyndsey Fagan NP Unavailable Erlin Servin MD Unavailable [phone] Julian Valdez MD Unavailable Salvador Norris MD [...] on file Legal Sex 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 CERTIFIED PHYSICIAN'S ASSISTANT Gender Identity Not on file Sexual Orientation [...] documented as of this encounter Care Teams Neonatal Nurse Relationship Specialty Start Date End Date Jatin Gamble MD [address] [place] [address] PCP - General 10/07/16 Hermelindo Butler MD [address] [place] [address] [facility] 12/02/17 Roberto Rojo MD [facility] [address] [place] [address] [facility] 12/02/17 Jatin Gamble MD [address] [place] [address] Referring Physician Internal Medicine 12/02/17 Garry Dukes MD [address] [place] [address] Referring Physician Urology 12/02/17 05/27/23 Lyndsey Fagan NP [address] [place] [address] Nurse Practitioner Medical Oncology 08/03/20 Erlin Servin MD [address] [place] [address] Consulting Physician Otolaryngology 10/04/22 [place] [address] [place] [address] Consulting Physician Urology 05/28/23 Salvador Norris MD [address] [place] [address] Consulting Physician Infectious Diseases 09/15/24 Miscellaneous, Not In File 09/15/24 documented as of this encounter
--- OUTSIDE RECORDS SUMMARY | 2024-10-21 09:02 | XMS_ITS ---
Author Organization [facility] Address [address] [place] [address] Care Team Providers Care Bridal Stylist Sales Consultant Name Role Phone Jatin Gamble MD Primary Care Provider Hermelindo Butler MD Unavailable Roberto Rojo MD Unavailable [phone] Jatin Gamble MD Unavailable [phone] Lyndsey Fagan NP Unavailable [phone] Erlin Servin MD Unavailable Julian Valdez MD Unavailable Salvador Norris MD Unavailable Miscellaneous, Not In File Unavailable Unava ilable Active Problems Patient Care Coordination No te Formatting of this note is d ifferent from the original. BMT Inpatient Care Coordination Overview Diagnosis [place] Floor [address] Treatment Plan Clinical Trial [id number] Rahel Reason for Admission JOHN Transplant/IEC Planning [...] Medical Assistants Post-Discharge Follow-Up Living Situation/Distance from [facility] (45 min) Caregiver Self, Lab/Transfusion [...] is a risk of orbital injury and SENIOR SOLUTIONS ENGINEER injury which could result in blindness or [...] this. Assessment & Plan (07/09/2022 7:42 PM LABEL FOLDER): I talked with him quite a bit [...] weeks. Assessment & Plan (05/26/2022 4:16 PM LABEL FOLDER): He does have pretty significant sinusitis and [...] day. Assessment & Plan (05/26/2022 4:17 PM LABEL FOLDER): It is very possible that his cough could be due to sinusitis also. Hopefully that will continue to improve as we treat. He understands. Immunocompromised 11/13/2021 Multiple myeloma not having achieved remission 0 10/28/2021 Cancer Staging:Clinical stage from 10/16/2021:RISS Stage II(Sjje-7-gaayjaxbdvgto (mg/L): 3.7, Albumin (g/dL): 4.2, ISS: Stage [...] and Dexamethasone in June 2021 Clinical trial [id number] initiated on 10/29/21; C46D1 08/03/24. BMT following [...] he got a TTE on 10/19 at [place] however unclear why not currently in the system - May need to repeat TTE prior to treatment if results unavailable - Continue OI ppx with acyclovir 400mg BID - Begin trial [id number], a Bispecific Antibody Targeting BCMA treatment - [...] he got a TTE on 10/19 at [place] however unclear why not currently in the system - May need to repeat TTE prior to treatment if results unavailable - Continue OI ppx with acyclovir 400mg BID - Begin trial [id number], a Bispecific Antibody Targeting BCMA treatment - [...] BID Assessment & Plan (05/31/2021 10:51 AM LABEL FOLDER): Continue home pepcid, asx Renal mass 05/30/2021 Assessment & Plan (05/31/2021 10:51 AM LABEL FOLDER): Admitted for observation after L renal mass [...] 07/17/2023 Assessment & Plan (05/31/2021 10:52 AM LABEL FOLDER): Follows with oncology on daratumumab monotherapy -counts [...] blood in urine Follow up pathology from savrhpplu-bti-bkjkspqi high-grade papillary urothelial carcinoma (grade 2) --follow [...] blood in urine Follow up pathology from rqdbcarhs-ycw-czgwevjf high-grade papillary urothelial carcinoma (grade 2) --follow [...] supplementation Assessment & Plan (05/31/2021 10:51 AM LABEL FOLDER): Stable on home losartan, nebivolol, triamterene-HCTZ 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/23/2013 Current Treatment and Therapy Plans - INPT/OUTPT - [facility] - MM - [id number] - Arm B - Dose Expansion Phase - TNB-383B Monotherapy* Plan Start Date:10/29/2021 Plan Provider:Hermelindo Butler MD Linked Problems Multiple myeloma in relapse (HCC) Treatment Medications Current Day (Day 1 , Cycle 49 - Planned for 10/26/2024) Next Day (Day 1, Cycle 50 - Planned for 11/16/2024) INV-[facility] (/TNB-383B.2024) Etentamig (TNB-383B/ABBV-383) IVPB in 50 mL (ANTI-LAG-3)INV-[facility] Etentamig (TNB-383B/ABBV-383) (TNB-383B.2024)IN V-[facility] sodium chloride 0.9 % INV-[facility] [place] Etentamig (TNB-383B/ABBV-383) (IVSS-FREE FORMULATION) (TNB-383B.2024) 40 mg [...]
--- OUTSIDE RECORDS SUMMARY | 2024-10-21 09:02 | XMS_ITS | Encounter Summary ---
Author Organization [facility] Address [address] [place] [address] Phone Care Team Providers Care Senior Information Security Engineer Name Role Phone Jatin Gamble MD Primary Care Provider Hermelindo Butler MD Unavailable Roberto Rojo MD Unavailable [phone] Jatni Gamble MD Unavailable Lyndsey Fagan NP Unavailable [phone] Erlin Servin MD Unavailable [phone] Julian Valdez MD Unavailable Salvador Norris MD Unavailable Miscellaneous, Not In File Unavailable Unava ilable Reason for Visit * Consultation (Routine) - Authorized Specialty Diagnoses / Procedures Referred By Contac t Referred To Contact Nephrology Diagnoses Multiple myeloma not having achieved remission (HCC) JOHN (acute kidney injury) Hermelindo Butler MD [address] DIV IM [employer]ARROW TRANSPL[employer] [place] [address] Phone: tel: fax: [facility] (All Locations) Referral ID Status Reason Start Date Expiration Date Visits Requested Visits Authorized [id number] Authorized Specialty Services Required 08/27/2024 09/26/2025 12 12 Encounter Details Date Type Department Care Team (Late st Contact Info) Description 10/20/2024 10:10 AM CDT Office Visit [facility] Nephrology [address] [facility] 5th [place] [address] [place] [id number] Multiple myeloma not having achieved remission (HCC); JOHN (acute kidney injury) Social History Tobacco Use Types Packs/Day Years Used Date Smoking Tobacco: Never Smokeless Tobacco: Never Tobacco Cessation:Counseling Given: Not Answered Alcohol Use Standard Drinks/Week Comments No 0 (1 standard drink = 0.6 oz pur e alcohol) [facility] Utilities Answer Date Recorded In the [...] often do you attend chur ch or church services? More than 4 times per year 09/13/2024 Do you belong to any clubs o r organizations such as mu-ism groups, unions, fraternal or athletic groups, or [...] any time in the past [address] [facility], were you homeless or living in a residential (including now)? No 09/13/2024 Personal Safety Answer Date Recorded Have you ever been in or are you currently in a harmful physical or emotional relationship or is someone making you feel afraid or unsafe? 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 Gender Identity Not on file Sexual Orientation Not on file documented as of this encounter Last Filed Vital Signs Vital Sign Reading Time Taken Comments Blood Pressure 125/80 10/20/2024 10:15 AM CDT Pulse 69 10/20/2024 10:15 AM CDT Temperature 36.6 C (97.9 F) 10/20/2024 10:15 AM CDT Respiratory Rate - - Oxygen Saturation - - Inhaled Oxygen Concentration - - Weight 121 kg (266 lb 12.8 oz) 10/20/2024 10:15 AM CDT Height 175.3 cm (5' 9 ) 10/20/2024 10:15 AM CDT Body Mass Index 39.4 10/20/2024 10:15 AM CDT documented in this encounter Plan of Treatment Not on file documented as of this encounter Visit Diagnoses Diagnosis Multiple myeloma not having achieved remission (HCC) JOHN (acute kidney injury) documented in this encounter Orders Outpatient Referral Count Last Ordered Date st Ordered Date AMB REFERRAL TO NEPHROLOGY 1 10/20/2024 documented in this encounter Care Teams Senior Information Security Engineer Relationship Specialty Start Date End Date Jatin Gamble MD [address] [place] [address] PCP - General 10/07/16 Hermelindo Butler MD [address] [place] [address] [facility] 12/02/17 Roberto Rojo MD [address] [address] [facility] 12/02/17 Jatin Gamble MD [address] [place] [address] Referring Physician Internal Medicine 12/02/17 Lyndsey Fagan NP [address] [address] Nurse Practitioner Medical Oncology 08/03/20 Erlin Servin MD [address] [place] [address] Consulting Physician Otolaryngology 10/04/22 [place] [address] [place] [address] Consulting Physician Urology 05/28/23 Salvador Norris MD [id number] [place] [address] Consulting Physician Infectious Diseases 09/15/24 Miscellaneous, Not In File 09/15/24 documented as of this encounter
--- OUTSIDE RECORDS SUMMARY | 2024-10-21 09:03 | XMS_ITS | Clinical Summary ---
Author Organization [facility] Address [address] [place] [address] Care Team Providers Care Applications Programmer Name Role Phone Jatin Gamble MD Primary Care Provider Hermelindo Butler MD Unavailable Roberto Rojo MD Unavailable [phone] Jatin Gamble MD Unavailable Lyndsey Fagan NP Unavailable Erlin Servin MD Unavailable Julian Valdez MD Unavailable [phone] Salvador Norris MD Unavailable Miscellaneous, Not In File Unavailable Unava ilable Allergies Active Allergy Reactions Criticality Noted Date Comments Immune Globulin(Hum),Capr( Igg) Hives,Flushing (skin) Medium 01/03/2023 See significant event note 01/03/23 Hives developed during IVIG infusion on 10/19/24 Medications potassium chloride ER (KLOR-CON) 10 mEq [...] Active Additional Information Patient not taking.Reported on 10/20/2024 famotidine (PEPCID) 20 mg tablet Take 1 [...] Inpatient Care Coordination Overview Diagnosis MM Floor [address] Treatment Plan Clinical Trial [id number] Ramesh Reason for Admission JOHN Transplant/IEC Planning [...] Medical Assistants Post-Discharge Follow-Up Living Situation/Distance from [place], [place] (45 min) Caregiver Self, Lab/Transfusion Frequency [...] is a risk of orbital injury and APPLICATIONS PROGRAMMER injury which could result in blindness or [...] this. Assessment & Plan (07/09/2022 7:42 PM LOAD DROPPER): I talked with him quite a bit [...] weeks. Assessment & Plan (05/26/2022 4:16 PM LOAD DROPPER): He does have pretty significant sinusitis and [...] day. Assessment & Plan (05/26/2022 4:17 PM LOAD DROPPER): It is very possible that his cough could be due to sinusitis also. Hopefully that will continue to improve as we treat. He understands. Immunocompromised 11/13/2021 Multiple myeloma not having achieved remission 0 10/28/2021 Cancer Staging:Clinical stage from 10/16/2021:RISS Stage II(Rnkj-4-zzgcqrdtmtfap (mg/L): 3.7, Albumin (g/dL): 4.2, ISS: Stage [...] and Dexamethasone in June 2021 Clinical trial [id number] initiated on 10/29/21; C46D1 08/03/24. BMT following [...] he got a TTE on 10/19 at [place] however unclear why not currently in the system - May need to repeat TTE prior to treatment if results unavailable - Continue OI ppx with acyclovir 400mg BID - Begin trial [id number], a Bispecific Antibody Targeting BCMA treatment - [...] he got a TTE on 10/19 at [place] however unclear why not currently in the system - May need to repeat TTE prior to treatment if results unavailable - Continue OI ppx with acyclovir 400mg BID - Begin trial [id number], a Bispecific Antibody Targeting BCMA treatment - [...] BID Assessment & Plan (05/31/2021 10:51 AM LOAD DROPPER): Continue home pepcid, asx Renal mass 05/30/2021 Assessment & Plan (05/31/2021 10:51 AM LOAD DROPPER): Admitted for observation after L renal mass [...] 07/17/2023 Assessment & Plan (05/31/2021 10:52 AM LOAD DROPPER): Follows with oncology on daratumumab monotherapy -counts [...] blood in urine Follow up pathology from gorqhxlwv-vpp-llqtucco high-grade papillary urothelial carcinoma (grade 2) --follow [...] blood in urine Follow up pathology from glfehzxxh-eva-gxyydrxt high-grade papillary urothelial carcinoma (grade 2) --follow [...] supplementation Assessment & Plan (05/31/2021 10:51 AM LOAD DROPPER): Stable on home losartan, nebivolol, triamterene-HCTZ Secondary [...] Encounters Date Type Department Care Team Description 10/20/2024 10:10 AM CDT Office Visit [facility] Nephrology [address] [place] [address] Advanced Medicine 5th [place] [address] [place] [address] Multiple myeloma not having achieved remission (HCC); JOHN (acute kidney injury) 10/19/2024 7:30 AM CDT Infusion [facility] - Infusion [address] [facility] Floor 5 [place] [address] Hypogammaglobulinemia (Primary Dx); Multiple myeloma, remission status unspecified (HCC); Multiple myeloma not having achieved remission (HCC) 10/19/2024 6:30 AM CDT Clinical Support [facility] Floor 5 [place] [address] Multiple myeloma, remission status unspecified (HCC) 10/14/2024 Orders Only [facility] Mar[facility] Floor 6 [place] [address] Hermelindo Rich MD Multiple myeloma, remission status unspecified (HCC) (Primary Dx) 10/10/2024 6:31 AM CDT - 10/10/2024 11:59 PM CDT Hospital Encounter [facility] [address] [place] [address] Elevated prostate specific antigen (PSA) Discharge Disposition: Discharge to home or self care 10/07/2024 Orders Only [facility] Bone Marrow Transplant [address] [place] [phone] Hermelindo Rich MD 10/05/2024 Orders Only [facility] Scanning, Provider 10/05/2024 Orders Only [facility] Bone Marrow Transplant [address] [place] [phone] Hermelindo Rich MD Multiple myeloma, remission status unspecified (HCC) (Primary Dx) 09/28/2024 9:30 AM CDT Infusion [facility] - Infusion [address] [place] [address] Multiple myeloma in relapse (HCC) (Primary Dx); Multiple myeloma in remission (HCC) 09/28/2024 8:30 AM CDT Office Visit [facility] Bone Marrow Transplant [address] [place] [phone] Lyndsey Fagan NP Multiple myeloma, remission status unspecified (HCC) (Primary Dx); Multiple myeloma in remission (HCC); Multiple myeloma in relapse (HCC) 09/28/2024 7:30 AM CDT Clinical Support [facility] - Lab Collection [address] [place] [address] Multiple myeloma in remission (HCC); Multiple myeloma in relapse (HCC); Multiple myeloma, remission status unspecified (HCC) 09/15/2024 Orders Only [facility] [address] [place] [address] Preeti Wayne RPh 09/11/2024 1:43 AM CDT - 09/15/2024 5:22 PM CDT Hospital Encounter [place] [address] [place] [phone] Emory Santana MD [place], MD Bonifacio CarrilloChoco DO Oliguria (Primary Dx); Bacteremia Discharge Disposition: Discharge to home, home health skilled care 09/10/2024 Orders Only Urology Yesika Capone PA Elevated prostate specific antigen (PSA) (Primary Dx) 09/07/2024 Orders Only [facility] [address] [phone] Hermelindo Rich MD 09/06/2024 Orders Only [facility] Bone Marrow Transplant [address] [place] [address] Lyndsey Fagan NP 08/31/2024 10:00 AM CDT Infusion [facility] - Infusion [address] [address] Multiple myeloma in relapse (HCC) (Primary Dx); Multiple myeloma in remission (HCC) 08/31/2024 9:00 AM CDT Office Visit [facility] Bone Marrow Transplant [address] [place] [phone] Hermelindo Rich MD Multiple myeloma in relapse (HCC) (Primary Dx); Multiple myeloma in remission (HCC) 08/31/2024 8:45 AM CDT Clinical Support [facility] [address] [address] Multiple myeloma in relapse (HCC); Multiple myeloma not having achieved remission (HCC); Multiple myeloma, remission status unspecified (HCC) 08/31/2024 8:15 AM CDT Clinical Support [facility] Oncology [facility] [address] [address] Multiple myeloma not having achieved remission (HCC); Multiple myeloma in remission (HCC) 08/30/2024 Orders Only [facility] Scanning, Provider 08/27/2024 Documentation Nephrology Ani Anne LCSW 08/27/2024 Orders Only [facility] Bone Marrow Transplant [address] [place] [phone] Hermelindo Rich MD Multiple myeloma not having achieved remission (HCC) (Primary Dx); JOHN (acute kidney injury) 08/25/2024 6:50 AM CDT Ancillary Procedure [facility] Vascular Lab IP 1 [facility] [address] [place] [address] 08/23/2024 11:13 PM CDT - 08/26/2024 4:50 PM CDT Hospital Encounter [facility] [address] [place] [address] Hermelindo Rich MD Qapaja, Thabet J.M., MD JOHN (acute kidney injury) (Primary Dx) Discharge Disposition: Discharge to home or self care 08/23/2024 7:10 PM CDT - 08/23/2024 11:59 PM CDT Hospital Encounter [facility] Radiology [address] [place] [address] Discharge Disposition: Discharge to home or self care 08/23/2024 5:24 PM CDT - 08/23/2024 11:59 PM CDT Hospital Encounter [facility] ([facility]) 1st Floor [address] [place] [address] Hermelindo Rich MD Elevated serum creatinine (Primary Dx); Multiple myeloma, remission status unspecified (HCC) Discharge Disposition: Discharge to home or self care 08/23/2024 Orders Only [address] [phone] Hermelindo Rich MD 08/23/2024 Orders Only [facility] Bone Marrow Transplant [address] [facility] Floor 6 [place] [address] Hermelindo Rich MD Multiple myeloma, remission status unspecified (HCC) (Primary Dx) 08/20/2024 Orders Only [facility] Scanning, Provider 08/10/2024 Orders Only [facility] Scanning, Provider 08/06/2024 1:45 PM LOAD DROPPER Clinical Support [facility] - Lab Collection [address] [facility] Floor 6 [place] [address] 08/06/2024 1:00 PM LOAD DROPPER - 08/06/2024 11:59 PM LOAD DROPPER Hospital Encounter [facility] Radiology [address] [place] [address] Multiple myeloma, remission status unspecified (HCC) Discharge Disposition: Discharge to home or self care 08/06/2024 8:00 AM LOAD DROPPER Infusion [facility] - [facility]fusion [address] [facility] Floor 6 [place] [address] Multiple myeloma not having achieved remission (HCC) (Primary Dx); Hypogammaglobulinemia 08/06/2024 7:15 AM LOAD DROPPER Clinical Support [facility] Lab Collection [address] [facility] Floor 6 [place] [address] Multiple myeloma in relapse (HCC) (Primary Dx); Multiple myeloma, remission status unspecified (HCC); JOHN (acute kidney injury) 08/06/2024 Telephone [facility] Bone Marrow Transplant [address] [place] [phone] Lyndsey Fagan NP 08/06/2024 Orders Only [facility] Bone Marrow Transplant [address] [place] [phone] Lyndsey Fagan NP Multiple myeloma, remission status unspecified (HCC) (Primary Dx) 08/06/2024 Orders Only [facility] Bone Marrow Transplant [address] [place] [phone] Lyndsey Fagan NP JOHN (acute kidney injury) (Primary Dx) 08/06/2024 Orders Only [facility] Bone Marrow Transplant [address] [place] [phone] Hermelindo Rich MD Multiple myeloma, remission status unspecified (HCC) (Primary Dx) 08/03/2024 9:30 AM LOAD DROPPER Infusion [facility]fusion [address] [facility] Floor 6 [place] [address] Multiple myeloma in relapse (HCC) (Primary Dx); Multiple myeloma in remission (HCC) 08/03/2024 8:30 AM LOAD DROPPER Office Visit [facility] Bone Marrow Transplant [address] [place] [address] [phone] Hermelindo Rich MD Multiple myeloma, remission status unspecified (HCC) (Primary Dx); Multiple myeloma in remission (HCC); Multiple myeloma in relapse (HCC) 08/03/2024 7:30 AM LOAD DROPPER Clinical Support [facility] [address] [place] [address] Multiple myeloma in remission (HCC); Multiple myeloma, remission status unspecified (HCC); Multiple myeloma in relapse (HCC) 08/03/2024 Orders Only [facility] [address] [place] [address] Hermelindo Rich MD 08/03/2024 Orders Only [facility] Bone Marrow Transplant [address] [place] [phone] Hermelindo Rich MD 08/03/2024 Orders Only [facility] Bone Marrow Transplant [address] [place] [phone] Hermelindo Rich MD 08/02/2024 Telephone [facility] Bone Marrow Transplant [address] [place] [address] Lyndsey Fagan NP 07/30/2024 Telephone [facility] Bone Marrow Transplant [address] [place] [phone] Hermelindo Rich MD 07/27/2024 Telephone [facility] Bone Marrow Transplant [address] [place] [phone] Hermelindo Rich MD 07/26/2024 Orders Only [facility] Bone Marrow Transplant [address] [place] [phone] Hermelindo Rich MD 07/26/2024 Orders Only [facility] Bone Marrow Transplant [address] [place] [phone] Hermelindo Rich MD 07/26/2024 Telephone [facility] [address] [place] [address] Margaret Kay [facility] Medical Question/Miscellaneous from Last 3 Months Immunizations Immunization Administration Dates Next Due Influenza, Quadrivalent, Mena l Culture-based MDCK, Antibiotic Free, Intramuscular 03/08/2023 Influenza, Quadrivalent, Mnea l Culture-based MDCK, Preservative Free, Antibiotic Free, [...] chemotherapy has chemo every 21 days at [place] last tx 09/24/22 Cough patient states Lena Servin aware of productive sputum green to [...] drink = 0.6 oz pur e alcohol) [facility] Utilities Answer Date Recorded In the [...] time in the past 12 m [facility], were you homeless or living in a usp (including now)? No 09/13/2024 Personal Safety Answer Date Recorded Have you ever been in or are you currently in a harmful physical or emotional relationship or is someone making you feel afraid or unsafe? Denies 09/11/2024 Sex and Gender Information Value Date Recorded Sex Assigned a [id number]|2024-10-21 09:03:00|2024-10-21 09:02:00|XMS_ITS|BKG DAEMON|External Medical Summaries|[id number]|" Referral Summary Created on: October 21, 2024 Michele Valle : 1950 Sex: Male Author Organization [facility] Address [address] [place] [address] Care Team Providers Care Applications Programmer Name Role Phone Jatin Gamble MD Primary Care Provider [phone] Hermelindo Butler MD Unavailable Roberto Rojo MD Unavailable [phone] Jatin Gamble MD Unavailable Lyndsey Fagan NP Unavailable Erlin Servin MD Unavailable [phone] Julian Valdez MD Unavailable [phone] Salvador Norris MD Unavailable Miscellaneous, Not In File Unavailable Unava ilable Encounters Date Type Department Care Team Description 10/20/2024 10:10 AM CDT Office Visit [facility] Nephrology [facility] 5th [place] [address] [place] [address] Multiple myeloma not having achieved remission (HCC); JOHN (acute kidney injury) 10/19/2024 6:30 AM CDT Clinical Support [facility] - Lab Collection [address] [facility] Floor 5 [place] [address] Multiple myeloma, remission status unspecified (HCC) 10/19/2024 7:30 AM CDT Infusion [facility] - Infusion [address] [facility] Floor 5 [place] [address] Hypogammaglobulinemia (Primary Dx); Multiple myeloma, remission status unspecified (HCC); Multiple myeloma not having achieved remission (HCC) 10/14/2024 Orders Only [facility] Bone Marrow Transplant [address] [facility] Floor 6 [place] [address] Hermelindo Rich MD Multiple myeloma, remission status unspecified (HCC) (Primary Dx) 10/10/2024 6:31 AM CDT - 10/10/2024 11:59 PM CDT Hospital Encounter [facility] Radiology [facility] ([facility]) [address] [place] [address] Elevated prostate specific antigen (PSA) Discharge Disposition: Discharge to home or self care 10/07/2024 Orders Only [facility] Bone Marrow Transplant [address] [facility] Floor 6 [place] [address] Hermelindo Rich MD 10/05/2024 Orders Only [facility] Scanning, Provider 10/05/2024 Orders Only [facility] Bone Marrow Transplant [address] [place] [phone] Hermelindo Rich MD Multiple myeloma, remission status unspecified (HCC) (Primary Dx) 09/28/2024 9:30 AM CDT Infusion [facility] - Infusion [address] [facility] Floor [address] [place] [address] Multiple myeloma in relapse (HCC) (Primary Dx); Multiple myeloma in remission (HCC) 09/28/2024 7:30 AM CDT Clinical Support [facility] - Lab Collection [address] [place] [address] Multiple myeloma in remission (HCC); Multiple myeloma in relapse (HCC); Multiple myeloma, remission status unspecified (HCC) 09/28/2024 8:30 AM CDT Office Visit [facility] Bone Marrow Transplant [address] [place] [phone] Lyndsey Fagan NP Multiple myeloma, remission status unspecified (HCC) (Primary Dx); Multiple myeloma in remission (HCC); Multiple myeloma in relapse (HCC) 09/15/2024 Orders Only [facility] [address] [place] [address] Preeti Wayne RPh 09/11/2024 1:43 AM CDT - 09/15/2024 5:22 PM CDT Hospital Encounter [place] [address] [place] [phone] Emory Santana MD [place], MD Bonifacio Carrillo Adam Benjamin, DO Oliguria (Primary Dx); Bacteremia Discharge Disposition: Discharge to home, home health skilled care 09/10/2024 Orders Only Urology Yesika Capone PA Elevated prostate specific antigen (PSA) (Primary Dx) 09/07/2024 Orders Only [facility] Bone Marrow Transplant [address] [place] [phone] Hermelindo Rich MD 09/06/2024 Orders Only [facility] Bone Marrow Transplant [address] [place] [address] Lyndsey Fagan NP 08/31/2024 8:45 AM CDT Clinical Support [facility] - Lab Collection [address] [place] [address] Multiple myeloma in relapse (HCC); Multiple myeloma not having achieved remission (HCC); Multiple myeloma, remission status unspecified (HCC) 08/31/2024 10:00 AM CDT Infusion [facility] - Infusion [address] [place] [address] Multiple myeloma in relapse (HCC) (Primary Dx); Multiple myeloma in remission (HCC) 08/31/2024 9:00 AM CDT Office Visit [facility] Bone Marrow Transplant [address] [place] [phone] Hermelindo Rich MD Multiple myeloma in relapse (HCC) (Primary Dx); Multiple myeloma in remission (HCC) 08/31/2024 8:15 AM CDT Clinical Support [facility] Oncology Lab [address] [place] [phone] Multiple myeloma not having achieved remission (HCC); Multiple myeloma in remission (HCC) 08/30/2024 Orders Only [facility] Scanning, Provider 08/27/2024 Documentation Nephrology Ani Anne LCSW 08/27/2024 Orders Only [facility] Bone Marrow Transplant [address] [place] [phone] Hermelindo Rich MD Multiple myeloma not having achieved remission (HCC) (Primary Dx); JOHN (acute kidney injury) 08/23/2024 11:13 PM CDT - 08/26/2024 4:50 PM CDT Hospital [address] [phone] Hermelindo Rich MD Qapaja, Thabet J.M., MD JOHN (acute kidney injury) (Primary Dx) Discharge Disposition: Discharge to home or self care 08/25/2024 6:50 AM CDT Ancillary Procedure [facility] Vascular Lab IP 1 [facility] [address] [place] [address] 08/23/2024 7:10 PM CDT - 08/23/2024 11:59 PM CDT Hospital Encounter [facility] Radiology 1 [facility] [place] [address] Discharge Disposition: Discharge to home or self care 08/23/2024 Orders Only [address] [phone] Hermelindo Rich MD 08/23/2024 Orders Only [facility] Bone Marrow Transplant [address] [place] [phone] Hermelindo Rich MD Multiple myeloma, remission status unspecified (HCC) (Primary Dx) 08/23/2024 5:24 PM CDT - 08/23/2024 11:59 PM CDT Hospital Encounter [facility] 1st Floor [address] [place] [address] Hermelindo Rich MD Elevated serum creatinine (Primary Dx); Multiple myeloma, remission status unspecified (HCC) Discharge Disposition: Discharge to home or self care 08/20/2024 Orders Only [facility] Scanning, Provider 08/10/2024 Orders Only [facility] Scanning, Provider 08/06/2024 Telephone [facility] Bone Marrow Transplant [address] [place] [phone] Lyndsey Fagan NP 08/06/2024 Orders Only [facility] Bone Marrow Transplant [address] [place] [phone] Lyndsey Fagan NP Multiple myeloma, remission status unspecified (HCC) (Primary Dx) 08/06/2024 1:45 PM LOAD DROPPER Clinical Support [facility] [address] [place] [address] 08/06/2024 1:00 PM LOAD DROPPER - 08/06/2024 11:59 PM LOAD DROPPER Hospital Encounter [facility] Radiology [address] [place] [address] Multiple myeloma, remission status unspecified (HCC) Discharge Disposition: Discharge to home or self care 08/06/2024 Orders Only [facility] Bone Marrow Transplant [address] [place] [phone] Lyndsey Fagan NP JOHN (acute kidney injury) (Primary Dx) 08/06/2024 Orders Only [facility] Bone Marrow Transplant [address] [place] [phone] Hermelindo Rich MD Multiple myeloma, remission status unspecified (HCC) (Primary Dx) 08/06/2024 7:15 AM LOAD DROPPER Clinical Support [facility] Collection [address] [place] [address] Multiple myeloma in relapse (HCC) (Primary Dx); Multiple myeloma, remission status unspecified (HCC); JOHN (acute kidney injury) 08/06/2024 8:00 AM LOAD DROPPER Infusion [facility] - Infusion [address] [place] [address] Multiple myeloma not having achieved remission (HCC) (Primary Dx); Hypogammaglobulinemia 08/03/2024 Orders Only [facility] Bone Marrow Transplant [address] [place] [phone] Hermelindo Rich MD 08/03/2024 Orders Only [facility] Bone Marrow Transplant [address] [place] [phone] Hermelindo Rich MD 08/03/2024 Orders Only [facility] Bone Marrow Transplant [address] [place] [phone] Hermelidno Rich MD 08/03/2024 9:30 AM LOAD DROPPER Infusion [facility] - Infusion [address] [place] [address] Multiple myeloma in relapse (HCC) (Primary Dx); Multiple myeloma in remission (HCC) 08/03/2024 7:30 AM LOAD DROPPER Clinical Support [facility] - Lab Collection [address] [facility] Floor [address] [place] [address] Multiple myeloma in remission (HCC); Multiple myeloma, remission status unspecified (HCC); Multiple myeloma in relapse (HCC) 08/03/2024 8:30 AM LOAD DROPPER Office Visit [facility] Bone Marrow Transplant [address] [place] [address] [address] [place] [address] Hermelindo Rich MD Multiple myeloma, remission status unspecified (HCC) (Primary Dx); Multiple myeloma in remission (HCC); Multiple myeloma in relapse (HCC) 08/02/2024 Telephone [facility] [address] [place] [address] Lyndsey Fagan NP 07/30/2024 Telephone [facility] [address] [place] [phone] Hermelindo Rich MD 07/27/2024 Telephone [facility] [address] [place] [phone] Hermelindo Rich MD 07/26/2024 Orders Only [facility] [address] [place] [phone] Hermelindo Rich MD 07/26/2024 Orders Only [facility] [address] [place] [phone] Hermelindo Rich MD 07/26/2024 Telephone [facility] [address] [place] [phone] Margaret Kay RMA Medical Question/Miscellaneous from Last 3 Months Allergies Active Allergy Reactions Criticality Noted Date Comments Immune Globulin(Hum),Capr( Igg) Hives,Flushing (skin) Medium 01/03/2023 See significant event note 01/03/23 Hives developed during IVIG infusion on 10/19/24 Medications potassium chloride ER (KLOR-CON) 10 mEq [...] Active Additional Information Patient not taking.Reported on 10/20/2024 famotidine (PEPCID) 20 mg tablet Take 1 [...] minutes for 10 days at 200 mL/hr 04/0909/26/19 Active Problems Patient Care Coordination No te Formatting of this note is d ifferent from the original. BMT Inpatient Care Coordination Overview Diagnosis [place] Floor [address] Treatment Plan Clinical Trial [id number] Ramesh Reason for Admission JOHN Transplant/IEC Planning [...] Medical Assistants Post-Discharge Follow-Up Living Situation/Distance from [place], [place] (45 min) Caregiver Self, Lab/Transfusion Frequency Phone: Fax: Venous Access & Care implanted vascular device Local Oncologist Contact Phone: Fax: Post-Discharge Office Visit (H30) [facility] 08/[place] Miscellaneous Notes: Problem Noted Date Diagnosed [...] is a risk of orbital injury and APPLICATIONS PROGRAMMER injury which could result in blindness or [...] this. Assessment & Plan (07/09/2022 7:42 PM LOAD DROPPER): I talked with him quite a bit [...] weeks. Assessment & Plan (05/26/2022 4:16 PM LOAD DROPPER): He does have pretty significant sinusitis and [...] day. Assessment & Plan (05/26/2022 4:17 PM LOAD DROPPER): It is very possible that his cough could be due to sinusitis also. Hopefully that will continue to improve as we treat. He understands. Immunocompromised 11/13/2021 Multiple myeloma not having achieved remission 0 10/28/2021 Cancer Staging:Clinical stage from 10/16/2021:RISS Stage II(Dpyz-8-kusqohdgrdyxu (mg/L): 3.7, Albumin (g/dL): 4.2, ISS: Stage [...] and Dexamethasone in June 2021 Clinical trial [id number] initiated on 10/29/21; C46D1 08/03/24. BMT following [...] he got a TTE on 10/19 at [place] however unclear why not currently in the system - May need to repeat TTE prior to treatment if results unavailable - Continue OI ppx with acyclovir 400mg BID - Begin trial [id number], a Bispecific Antibody Targeting BCMA treatment - [...] he got a TTE on 10/19 at [place] however unclear why not currently in the system - May need to repeat TTE prior to treatment if results unavailable - Continue OI ppx with acyclovir 400mg BID - Begin trial [id number], a Bispecific Antibody Targeting BCMA treatment - [...] BID Assessment & Plan (05/31/2021 10:51 AM LOAD DROPPER): Continue home pepcid, asx Renal mass 05/30/2021 Assessment & Plan (05/31/2021 10:51 AM LOAD DROPPER): Admitted for observation after L renal mass [...] 07/17/2023 Assessment & Plan (05/31/2021 10:52 AM LOAD DROPPER): Follows with oncology on daratumumab monotherapy -counts [...] blood in urine Follow up pathology from denflcytp-oib-nujuslbb high-grade papillary urothelial carcinoma (grade 2) --follow [...] blood in urine Follow up pathology from jczxnwxns-wap-xpklrmmh high-grade papillary urothelial carcinoma (grade 2) --follow [...] supplementation Assessment & Plan (05/31/2021 10:51 AM LOAD DROPPER): Stable on home losartan, nebivolol, triamterene-HCTZ Secondary [...] drink = 0.6 oz pur e alcohol) [facility] Utilities Answer Date Recorded In the past 12 months has e [employer], gas, oil, or water company threatened to [...] time in the past 12 m [facility], were you homeless or living in a usp (including now)? No 09/13/2024 Personal Safety Answer Date Recorded Have you ever been in or are you currently in a harmful physical or emotional relationship or is someone making you feel afraid or unsafe? 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 Gender Identity Not on file Sexual Orientation Not on file Last Filed Vital Signs Vital Sign Reading Time Taken Comments Blood Pressure 125/80 10/20/2024 10:15 AM CDT Pulse 69 10/20/2024 10:15 AM CDT Temperature 36.6 C (97.9 F) 10/20/2024 10:15 AM CDT Respiratory Rate 18 10/19/2024 11:51 AM CDT Oxygen Saturation 96% 10/19/2024 11:51 AM CDT Inhaled Oxygen Concentration - - Weight 121 kg (266 lb 12.8 oz) 10/20/2024 10:15 AM CDT Height 175.3 cm (5' 9 ) 10/20/2024 10:15 AM CDT Body Mass Index 39.4 10/20/2024 10:15 AM CDT Plan of Treatment Not on file Medical Devices Implanted Type Area Scenery Builder Device Identifier Shelf Expiration Date Model / Serial / Lot Port Other - see comments Right: Chest Wall Description:Upon arrival to IR, not accessed Procedures Procedure Name Priority Date/Time Associated Diagnosis Comments EGFR Routine 10/19/2024 7:50 AM CDT Multiple myeloma, remission status unspecified (HCC) DIFFERENTIAL AUTO Routine 10/19/2024 7:5 0 AM CDT Multiple myeloma, remission status unspecified (HCC) CBC WITH AUTO DIFFERENTIAL Routine 10/19/2024 7:50 AM CDT Multiple myeloma, remission status unspecified (HCC) COMPREHENSIVE METABOLIC PANE
--- OUTSIDE RECORDS SUMMARY | 2024-10-21 09:04 | XMS_ITS | Encounter Summary ---
Author Organization [facility] Healthcare Address [address] [place] [address] Care Team Providers Care Food Production Associate Name Role Phone Jatin Gamble MD Primary Care Provider Hermelindo Butler MD Unavailable Roberto Rojo MD Unavailable Jatin Gamble MD Unavailable Garry Dukes MD Unavailable [phone] Lyndsey Fagan NP Unavailable Erlin Servin MD Unavailable [phone] Julian Valdez MD Unavailable Salvador Norris MD Unavailable Miscellaneous, Not In File Unavailable Unava ilable Encounter Details Date Type Department Care Team (Late st Contact Info) Description 04/29/2022 Community Orders [facility] EpicCare Link Jatin Gamble MD [address] [place] [address] Elevated prostate specific antigen (PSA) (Primary Dx) Social History Tobacco Use Types Packs/Day Years Used Date Smoking Tobacco: Never Smokeless Tobacco: Never Alcohol Use Standard Drinks/Week Comments No 0 (1 standard drink = 0.6 oz pur e alcohol) Sex and Gender Information Value Date Recorded Sex Assigned at Not on file 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 Gender Identity Not on file Sexual Orientation [...] documented as of this encounter Care Teams Food Production Associate Relationship Specialty Start Date End Date Jatin Gamble MD [address] [place] [address] PCP - General 10/07/16 Hermelindo Butler MD [address] [place] [address] [facility] 12/02/17 Roberto Rojo MD [address] [place] [id number] [facility] Oncology 12/02/17 Jatin Gamble MD [address] [place] [address] Referring Physician Internal Medicine 12/02/17 Garry Dukes MD [address] [place], [place] [id number] Referring Physician Urology 12/02/17 05/27/23 Lyndsey Fagan NP [address] [place] [address] Nurse Practitioner Medical Oncology 08/03/20 Erlin Servin MD [address] [place] [address] Consulting Physician Otolaryngology 10/04/22 [place] [address] [place] [address] Consulting Physician Urology 05/28/23 Salvador Norris MD [address] [place] [address] Consulting Physician Infectious Diseases 09/15/24 Miscellaneous, Not In File 09/15/24 documented as of this encounter
--- OUTSIDE RECORDS SUMMARY | 2024-10-21 09:04 | XMS_ITS | Continuity of Care Document ---
Author Organization [employer] [facility] Address [address] [facility] [address] [place] [address] Phone Care Team Providers Care Operating Engineer Apprentice Name Role Phone Cesar Vora MD, FACS [...] ER 100 mg tablet,extended release - Active [place] 5 mg-325 mg tablet take 1 tablet [...] Encounter Office/outpa tient Visit, [facility], [address] [place] [address] [address], [place], [place], [address], [place] tel:[phone] SEC [place] Eyelid infections (chief complaint) Episcleritis of left eyeOther vitreous opacities, bilateralOth er visual disturbances 2 Vielka Cesar. [address] [facility], [address], [place], [place], [address], [place]. tel:[phone] Specialist: Hermelindo Lopez MD, [address] [facility] [address], [place], [address]. tel:[phone] Provider: Vicky Ray OD, [address] [facility], [place], [address]. tel:[phone] [facility], [address], [place], [place], [address], [place] tel:[phone] SEC [place] Professional yag pc OS evaluation (chief complaint) Bilateral artificial lens implantOther secondary cataract, left eyeCyst of right eyelidPVD (posterior vitreous detachment), left eyeBilateral ocular hypertension Oct-1 8 Jose R Franco. [address] [facility], [address], [place], [place], [address], [place]. tel:[phone] Referring Provider: Michele Orellana OD A, [address] [place] [address] Eye [facility], [place], [address]. tel:[phone] [facility] Medicine[facility] Buzz Network Eye [facility], [address] [place], [place] [address], [place], [place], [address], [place] tel:[phone] SEC Steven Sifuentes Yag PC Eval (chief complaint) No Information 7 Paris Cesar. [address] [place], [place] [address]BUILD, [address], [place], [place], [address], [place]. tel:[phone] Referring Provider: Michele Orellana OD A, [address] [place] [address], [place], [address]. tel:[phone] Dom[employer] Safety [facility], [address], [place], [place], [address], [place] tel:[phone] SEC Steven Petrona Coybienvenidorosalio No Information 7 Vielka Cesar. [facility] [employer], [address], [place], [place], [address], [place]. tel:[phone] Dom[employer] Safety [facility], [facility] [address], [place], [place], [address], [place] tel:[phone] [facility] No Information 5 Vielka Cesar. [facility] [employer], [address], [place], [place], [address], [place]. tel:[phone] Referring Provider: Michele Orellana OD A, [address] [place] [address], [place], [address]. tel:[phone] [employer] [facility], [address] [place] [address] [address], [place], [place], [address], [place] tel:[phone] SEC Steven N Bear No Information 5 Vielka Guerrero. [address] [facility], [address], [place], [place], [address], [place]. tel:[phone] Referring Provider: Michele Acevedo, [address] [facility] Eye [facility], [place], [address]. tel:[phone] [facility], [address] [place] [address] [address], [place], [place], [address], [place] tel:[phone] [facility] No Information 5 Vielka Guerrero. [facility] [address] [facility], [address], [place], [place], [address], [place]. tel:[phone] Referring Provider: Michele Acevedo, [address] [facility], [place], [address]. tel:[phone] [facility], [address] [place] [address] [address], [place], [place], [address], [place] tel:[phone] SEC [place] N Bear Cataract Evaluation (chief complaint) No Information 5 Vielka Guerrero. [address] [place] [address] [facility], [address], [place], [place], [address], [place]. tel:[phone] Referring Provider: Michele Acevedo, [address] [place], [address]. tel:[phone] Family History Family Member Type Diagnosis Age At Onset Mother Problem (finding) diabetes melli tus in first degree relative Mother Problem (finding) glaucoma Payers Payer name Insurance type Covered constitution party ID Authoriza tion(s) [place] [id number] Aetna Mdcr Supp CI [id number] Social History Type Description Quantity Date Captured [...]
[2024-10-21 09:08] LABS: Add Urine Microscopic? YES; Appearance Urine Clear (Clear); Bilirubin Urine Negative (Negative); Blood Urine Trace-intact (Negative); Color Urine Light Yellow (Yellow); Glucose Urine UA Negative (Negative); Ketones Urine Negative (Negative); Leukocyte Esterase Ur 2+ (Negative); Nitrate Urine Positive (Negative); Protein Urine Negative (Negative); Specific Grav Ur 1.015 (1.010-1.020); Urobilinogen Urine 0.2 mg/dL (0.2-1.0)
[2024-10-21 09:27] LABS: RBC Urine 0-2 /hpf (0-2)
[2024-10-21 09:28] LABS: Bacteria Urine Trace /hpf; Squamous Epithelial Cell Urine Few /hpf (Few)
== END 2024-10-21 08:58 | disposition home or self-care (01) ==
LOC: CHSLAB 08:59
PROVIDERS: PCP Internal Medicine; Visit Provider Internal Medicine
DX: N39.0 Urinary tract infection, site not specified (principal)
CPT/HCPCS: 81001; 87077; 87086; 87088; 87186

== ENCOUNTER 2024-10-30 07:31 | Outpatient (CLI) | payer MEDICARE, SELFPAY ==
--- OUTSIDE RECORDS SUMMARY | 2024-10-30 07:34 | XMS_ITS | Encounter Summary ---
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 Operating Room [facility] [place] [phone] [place] [address] [place] [address] 12/16/2024 10:15 AM CDT - 12/16/2024 12:15 PM CDT Surgery [facility] Operating Room [address] [place] [phone] [place] [address] [place] [address] Cystoscopy, Bilateral Retrograde Pyelograms Scheduled Procedures Name Priority Associated Diagnoses Date/Ti me CYSTOSCOPY RETROGRADE PYELOGRAM - INSERTION URETERAL STENT Enlarged prostate with urinary obstruction Bladder stone 12/16/2024 10:15 AM CDT CYSTOSCOPY HOLMIUM LASER LITHOTRIPSY BLADDER STONE Enlarged prostate with urinary obstruction Bladder stone 12/16/2024 10:15 AM CDT CYSTOSCOPY/TRANSURETHRAL RESECTION OF PROSTATE Enlarged prostate with urinary obstruction Bladder stone 12/16/2024 10:15 AM CDT documented as of this encounter Procedures Procedure [...] as of this encounter Care Teams Supervisor Intermediates Relationship Specialty Start Date End Date Jatin Gamble MD [address] [place] [address] PCP - General 10/07/16 Hermelindo Butler MD [address] [place] [address] Medical Oncologist/Hematologi Medical Oncology 12/02/17 Roberto Rojo MD [address] [place] [address] Medical Oncologist/Hematologi Hematology and Oncology 12/02/17 Jatin Gamble MD [address] [place] [address] Referring Physician Internal Medicine 12/02/17 Garry Dukes MD [address] [place] [address] Referring Physician Urology 12/02/17 05/27/23 Lyndsey Fagan NP [address] [place] [address] Nurse Practitioner Medical Oncology 08/03/20 Erlin Servin MD [place] [address] Consulting Physician Otolaryngology 10/04/22 [place] [address] [place] [address] Consulting Physician Urology 05/28/23 Salvador Norris MD [address] [place] [address] Consulting Physician Infectious Diseases 09/15/24 Miscellaneous, Not In File 09/15/24 documented as of this encounter
--- OUTSIDE RECORDS SUMMARY | 2024-10-30 07:34 | XMS_ITS | Continuity of Care Document ---
Author Organization [employer]ake Creek[employer] [facility] Address [address] [facility] [address] [place] [address] Phone Care Team Providers Care Nuclear Worker Technician Name Role Phone Cesar Vora MD, FACS [...] ER 100 mg tablet,extended release - Active [place] 5 mg-325 mg tablet take 1 tablet [...] Copied on Encounter Office/outpa tient Visit, [facility], [address] [place] [address] [address], [place], [place], [address], [place] tel:[phone] SEC [place] Eyelid infections (chief complaint) Episcleritis of left eyeOther vitreous opacities, bilateralOth er visual disturbances 2 Vielka Cesar. [address] [facility], [address], [place], [place], [address], [place]. tel:[phone] Specialist: Hermelindo Lopez MD, [address] [facility] [address], [place], [address]. tel:[phone] Provider: Vicky Ray OD, [address] [facility], [place], [address]. tel:[phone] [facility], [address], [place], [place], [address], [place] tel:[phone] SEC [place] Professional yag pc OS evaluation (chief complaint) Bilateral artificial lens implantOther secondary cataract, left eyeCyst of right eyelidPVD (posterior vitreous detachment), left eyeBilateral ocular hypertension Oct-1 8 Jose R Franco. [address] [facility], [address], [place], [place], [address], [place]. tel:[phone] Referring Provider: Michele Orellana OD A, [address] [place] [address] [facility], [place], [address]. tel:[phone] [facility] WestDinetouch [facility], [address] [place], [place] [address], [place], [place], [address], [place] tel:[phone] SEC Steven Sifuentes Yag PC Eval (chief complaint) No Information 7 Earp Cesar. [address] [place], [place] [address], [address], [place], [place], [address], [place]. tel:[phone] Referring Provider: Michele Orellana OD A, [address] [place] [address], [place], [address]. tel:[phone] [facility] Hospital[facility] [employer] [facility], [address], [place], [place], [address], [place] tel:[phone] Steven Petrona Coybienvenidorosalio No Information 7 Vielka Cesar. [facility] [employer], [address], [place], [place], [address], [place]. tel:[phone] [facility] JoseDinetouch [facility], [facility] [address], [place], [place], [address], [place] tel:[phone] [facility] No Information 5 Vielka Cesar. [facility] [employer], [address], [place], [place], [address], [place]. tel:[phone] Referring Provider: Michele Orellana OD A, [address] [place] [address], [place], [address]. tel:[phone] [facility] Hospital[facility], [address] [place] [address] [address], [place], [place], [address], [place] tel:[phone] SEC Steven N Bear No Information 5 Vielka Guerrero. [address] [facility], [address], [place], [place], [address], [place]. tel:[phone] Referring Provider: Michele Acevedo, [address] [facility], [place], [address]. tel:[phone] [facility], [address] [place] [address] [address], [place], [place], [address], [place] tel:[phone] [facility] No Information 5 Vielka Guerrero. [facility] [place] [employer] [facility], [address], [place], [place], [address], [place]. tel:[phone] Referring Provider: Michele Acevedo, [address] [facility], [place], [address]. tel:[phone] [facility], [address] [place] [address] [address], [place], [place], [address], [place] tel:[phone] SEC [place] [address] Cataract Evaluation (chief complaint) No Information 5 Vielka Guerrero. [address] [place] [address] [address] [facility], [address], [place], [place], [address], [place]. tel:[phone] Referring Provider: Michele Acevedo, [address] [place], [address]. tel:[phone] Family History Family Member Type Diagnosis Age At Onset Mother Problem (finding) diabetes melli tus in first degree relative Mother Problem (finding) glaucoma Payers Payer name Insurance type Covered republican ID Authoriza tion(s) [place] MB [id number] Aetna Mdcr Supp CI [id number] Social History Type Description Quantity Date Captured [...]
--- OUTSIDE RECORDS SUMMARY | 2024-10-30 07:34 | XMS_ITS | Encounter Summary ---
Author Organization [facility] Address [address] [place] [address] Phone Care Team Providers Care [employer]ocket [employer] Plant Supervisor Name Role Phone Jatin Gamble MD Primary Care Provider Hermelindo Butler MD Unavailable Roberto Rojo MD Unavailable Jatin Gamble MD Unavailable Lyndsey Fagan NP Unavailable Erlin Servin MD Unavailable Julian Valdez MD Unavailable Salvador Norris MD Unavailable Miscellaneous, Not In File Unavailable Unava ilable Encounter Details Date Type Department Care Team (Late st Contact Info) Description 10/25/2024 Orders Only [facility] Bone Marrow Transplant [address] [facility] Floor [address] [place] [address] Lyndsey Fagan NP [address] DIV IM BONE MARROW TRANSPLANT, [address] [place] [address] Social History Tobacco Use Types Packs/Day Years Used Date Smoking Tobacco: Never Smokeless Tobacco: Never Alcohol Use Standard Drinks/Week Comments No 0 (1 standard drink = 0.6 oz pur e alcohol) [facility] Utilities Answer Date Recorded In the [...] often do you attend chur ch or presybeterian services? More than 4 times per year [...] were you homeless or living in a custodial (including now)? No 09/13/2024 Personal Safety Answer Date Recorded Have you ever been in or are you currently in a harmful physical or emotional relationship or is someone making you feel afraid or unsafe? 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 Gender Identity Not on file Sexual Orientation Not on file documented as of this encounter Plan of Treatment Upcoming Encounters Date Type Department Care Team (Latest Contact Info) Description 12/16/2024 10:15 AM CDT Hospital Encounter [facility] Operating Room [address] [place] [phone] [place] [address] [place] [address] 12/16/2024 10:15 AM CDT - 12/16/2024 12:15 PM CDT Surgery [facility] Operating Room [address] [place] [phone] [place] [address] [place] [address] Cystoscopy, Bilateral Retrograde Pyelograms Scheduled Procedures Name Priority Associated Diagnoses Date/Ti nv CYSTOSCOPY RETROGRADE PYELOGRAM - INSERTION URETERAL STENT Enlarged prostate with urinary obstruction Bladder stone 12/16/2024 10:15 AM CDT CYSTOSCOPY HOLMIUM LASER LITHOTRIPSY BLADDER STONE Enlarged prostate with urinary obstruction Bladder stone 12/16/2024 10:15 AM CDT CYSTOSCOPY/TRANSURETHRAL RESECTION OF PROSTATE Enlarged prostate with urinary obstruction Bladder stone 12/16/2024 10:15 AM CDT documented as of this encounter Visit Diagnoses Not on filedocumented in this encounter Care Teams R[employer]ellant Plant Supervisor Relationship Specialty Start Date End Date Jatin Gamble MD [address] [place] [address] PCP - General 10/07/16 Hermelindo Butler MD [address] [place] [address] [facility] 12/02/17 Roberto Rojo MD [address] [address] [facility] 12/02/17 Jatin Gamble MD [address] [place] [address] Referring Physician Internal Medicine 12/02/17 Lyndsey Fagan NP [address] [address] Nurse Practitioner Medical Oncology 08/03/20 Erlin Servin MD [address] [facility] [place] [address] Consulting Physician Otolaryngology 10/04/22 [place] [address] [place] [address] Consulting Physician Urology 05/28/23 Salvador Norris MD [facility] [id number] [place], [place] [id number] Consulting Physician Infectious Diseases 09/15/24 Miscellaneous, Not In File 09/15/24 documented as of this encounter
--- OUTSIDE RECORDS SUMMARY | 2024-10-30 07:34 | XMS_ITS | Encounter Summary ---
Author Organization [facility] Address [address] [place] [address] Care Team Providers Care [employer] Name Role Phone Jatin Gamble MD Primary Care Provider Hermelindo Butler MD Unavailable Roberto Rojo MD Unavailable [phone] Jatin Gamble MD Unavailable [phone] Garry Dukes MD Unavailable [phone] Lyndsey Fagan NP Unavailable Erlin Servni MD Unavailable Julian Valdez MD Unavailable Salvador Norris MD Unavailable Miscellaneous, Not In File Unavailable Unava ilable Encounter Details Date Type Department Care Team (Late st Contact Info) Description 11/22/2021 Documentation [facility] Case Management [address] [place] [address] Forrest Epstein RN Social History Tobacco Use Types Packs/Day Years Used Date Smoking Tobacco: Never Smokeless Tobacco: Never Alcohol Use Standard Drinks/Week Comments No 0 (1 standard drink = 0.6 oz pur e alcohol) Sex and Gender Information Value Date Recorded Sex Assigned at Not on file 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 Gender Identity Not on file Sexual Orientation Not on file documented as of this encounter Plan of Treatment Upcoming Encounters Date Type Department Care Team (Latest Contact Info) Description 12/16/2024 10:15 AM CDT Hospital Encounter [facility] Operating Room [address] [place] [phone] [place] [address] [place] [phone] 12/16/2024 10:15 AM CDT - 12/16/2024 12:15 PM CDT Surgery [facility] Operating Room [address] [place] [phone] [place] [address] [place] [phone] Cystoscopy, Bilateral Retrograde Pyelograms Scheduled Procedures Name Priority Associated Diagnoses Date/Ti ga CYSTOSCOPY RETROGRADE PYELOGRAM - INSERTION URETERAL STENT [...] documented as of this encounter Care Teams [employer] Relationship Specialty Start Date End Date Jatin Gamble MD [address] [place] [address] PCP - General 10/07/16 Hermelindo Butelr MD [address] [place], [place] [phone] Medical Oncologist/Hematologi Medical Oncology 12/02/17 Roberto Rojo MD [address] [place] [address] Medical Oncologist/Hematologi Hematology and Oncology 12/02/17 Jatin Gamble MD [address] [place], [place] [phone] Referring Physician Internal Medicine 12/02/17 Garry Dukes MD [address] [place] [address] Referring Physician Urology 12/02/17 05/27/23 Lyndsey Fagan NP [address] [place] [address] Nurse Practitioner Medical Oncology 08/03/20 Erlin Servin MD [address] [place] [address] [place] [address] Consulting Physician Otolaryngology 10/04/22 [place] [address] [place] [address] Consulting Physician Urology 05/28/23 Salvador Norris MD [address] [place] [address] Consulting Physician Infectious Diseases 09/15/24 Miscellaneous, Not In File 09/15/24 documented as of this encounter
--- OUTSIDE RECORDS SUMMARY | 2024-10-30 07:34 | XMS_ITS ---
Author Organization [facility] Address [address] [place] [address] Care Team Providers Care Parole Agent Name Role Phone Jatin Gamble MD Primary Care Provider [phone] Hermelindo Butler MD Unavailable Roberto Rojo MD Unavailable [phone] Jatin Gamble MD Unavailable [phone] Lyndsey Fagan NP Unavailable Erlin Servin MD Unavailable [phone] Julian Valdez MD Unavailable Salvador Norris MD Unavailable Miscellaneous, Not In File Unavailable Unava ilable Active Problems Patient Care Coordination No te Formatting of this note is d ifferent from the original. BMT Inpatient Care Coordination Overview Diagnosis [place] Floor [address] Treatment Plan Clinical Trial [id number] Rahel Reason for Admission JOHN Transplant/IEC Planning [...] Medical Assistants Post-Discharge Follow-Up Living Situation/Distance from [facility] [place] (45 min) Caregiver Self, Lab/Transfusion Frequency Phone: Fax: Venous Access & Care implanted vascular device Local Oncologist Contact Phone: Fax: Post-Discharge Office Visit (H30) HIRAM 08/31 Miscellaneous Notes: Problem Noted Date Diagnosed Date Enlarged prostate with urinary obstruction 10/27 Bladder stone 10/27/2024 Bacteremia due to Enterococcus 09/15/2024 Ureteral stone [...] is a risk of orbital injury and FRONT CLERK injury which could result in blindness or [...] this. 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 Assessment & Plan (05/26/2022 4:16 PM HEAVY TRUCK MECHANIC): He does have pretty significant sinusitis and [...] day. Assessment & Plan (05/26/2022 4:17 PM HEAVY TRUCK MECHANIC): It is very possible that his cough could be due to sinusitis also. Hopefully that will continue to improve as we treat. He understands. Immunocompromised 11/13/2021 Multiple myeloma not having achieved remission 0 10/28/2021 Cancer Staging:Clinical stage from 10/16/2021:RISS Stage II(Iops-0-wohtfkwrfebaw (mg/L): 3.7, Albumin (g/dL): 4.2, ISS: Stage [...] and Dexamethasone in June 2021 Clinical trial [id number] initiated on 10/29/21; C46D1 08/03/24. BMT following [...] he got a TTE on 10/19 at [place] however unclear why not currently in the system - May need to repeat TTE prior to treatment if results unavailable - Continue OI ppx with acyclovir 400mg BID - Begin trial [id number], a Bispecific Antibody Targeting BCMA treatment - [...] he got a TTE on 10/19 at [place] however unclear why not currently in the system - May need to repeat TTE prior to treatment if results unavailable - Continue OI ppx with acyclovir 400mg BID - Begin trial [id number], a Bispecific Antibody Targeting BCMA treatment - [...] BID Assessment & Plan (05/31/2021 10:51 AM HEAVY TRUCK MECHANIC): Continue home pepcid, asx Renal mass 05/30/2021 Assessment & Plan (05/31/2021 10:51 AM HEAVY TRUCK MECHANIC): Admitted for observation after L renal mass [...] 07/17/2023 Assessment & Plan (05/31/2021 10:52 AM HEAVY TRUCK MECHANIC): Follows with oncology on daratumumab monotherapy -counts [...] blood in urine Follow up pathology from xtrddnniw-qjn-zkubgltw high-grade papillary urothelial carcinoma (grade 2) --follow [...] blood in urine Follow up pathology from lzwdykyvb-zko-xudxfahr high-grade papillary urothelial carcinoma (grade 2) --follow [...] supplementation Assessment & Plan (05/31/2021 10:51 AM HEAVY TRUCK MECHANIC): Stable on home losartan, nebivolol, triamterene-HCTZ 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/23/2013 Current Treatment and Therapy Plans - INPT/OUTPT - [facility] - MM - [id number] - Arm B - Dose Expansion Phase - TNB-383B Monotherapy* Plan Start Date:10/29/2021 Plan Provider:Hermelindo Butler MD Linked Problems Multiple myeloma in relapse (HCC) Treatment Medications Current Day (Day 1 , Cycle 49 - Planned for 11/02/2024) Next Day (Day 1, Cycle 50 - Planned for 11/23/2024) INV-[facility] (/TNB-383B.0001) Etentamig (TNB-383B/ABBV-383) IVPB in 50 mL (ANTI-LAG-3)INV-[facility] Etentamig (TNB-383B/ABBV-383) (/TNB-383B.0001)IN V-[facility] sodium chloride 0.9 % INV-[facility] Etentamig (TNB-383B/ABBV-383) (IVSS-FREE FORMULATION) (/TNB-383B.0001) 40 mg in sodium chloride 0.9% 30 mL IVPBINV-[facility] sodium chloride 0.9 % flush IVPB 20 mL INV-[facility] Etentamig (TNB-383B/ABBV-383) (IVSS-FREE FORMULATION) (/TNB-383B.0001) 40 mg [...] FASPRO) (DARZELEX FASPRO)pomali domide (POMALYST) Progressive Disease StockHermelindo Cruz MD 4 of 12 cycles started Daratumumab (STANDARD DOSE) 28 Day Cycles - Myeloma 8 07/25/2020 daratumumab (DARZALEX) IVPB Patient Preference Hermelindo Ambrocio MD 33 of 40 cycles started INPT - Melphalan - BMT 11/10/2017 02/17/2018 melphalan (EVOMELA) IVPB in 250 mL Therapy Complete Hermelindo Ambrocio MD 1 of 1 cycle completed Oncology Supportive Care Therapy Plan Plan Name Start Date Discontinue Date Treatment [...]
--- OUTSIDE RECORDS SUMMARY | 2024-10-30 07:35 | XMS_ITS | Referral Summary ---
Author Organization [facility] Address [address] [place] [address] Care Team Providers Care Log Raft Worker Name Role Phone Jatin Gamble MD Primary Care Provider [phone] Hermelindo Butler MD Unavailable Roberto Rojo MD Unavailable [phone] Jatin Gamble MD Unavailable [phone] Lyndsey Fagan NP Unavailable Erlin Servin MD Unavailable [phone] Julian Valdez MD Unavailable Salvador Norris MD Unavailable Miscellaneous, Not In File Unavailable Unava ilable Encounters Date Type Department Care Team Description 10/25/2024 Telephone [facility] Bone Marrow Transplant [facility] Floor 6 [place] [address] Lyndsey Fagan NP 10/25/2024 Orders Only [facility] Bone Marrow Transplant [address] [facility] Floor 6 [place] [address] Lyndsey Fagan NP 10/20/2024 10:10 AM CDT Office Visit [facility] Nephrology [facility] 5th [place] [address] [place] [address] JOHN (acute kidney injury) (Primary Dx); Multiple myeloma not having achieved remission (HCC); Primary hypertension; Obstructive uropathy; Stage 3 chronic kidney disease, unspecified whether stage 3a or 3b CKD (HCC) 10/19/2024 6:30 AM CDT Clinical Support [facility] - Lab Collection [facility]0 [facility] Floor 5 [place] [address] Multiple myeloma, remission status unspecified (HCC) 10/19/2024 7:30 AM CDT Infusion [facility] - Infusion [address] [facility] Floor 5 [place] [address] Hypogammaglobulinemia (Primary Dx); Multiple myeloma, remission status unspecified (HCC); Multiple myeloma not having achieved remission (HCC) 10/14/2024 Orders Only [facility] Bone Marrow Transplant [facility]0 [facility] 6 [place] [phone] Hermelindo Rich MD Multiple myeloma, remission status unspecified (HCC) (Primary Dx) 10/10/2024 6:31 AM CDT - 10/10/2024 11:59 PM CDT Hospital [facility] [address] [place] [address] Elevated prostate specific antigen (PSA) Discharge Disposition: Discharge to home or self care 10/07/2024 Orders Only [facility] Bone Marrow Transplant [facility]0 [facility] 6 [place] [phone] Hermelindo Rich MD 10/05/2024 Orders Only [facility] Scanning, Provider 10/05/2024 Orders Only [facility] Bone Marrow Transplant [facility] Floor 6 [place] [phone] Hermelindo Rich MD Multiple myeloma, remission status unspecified (HCC) (Primary Dx) 09/28/2024 9:30 AM CDT Infusion [facility] - Infusion [address] [facility] Floor 6 [place] [address] Multiple myeloma in relapse (HCC) (Primary Dx); Multiple myeloma in remission (HCC) 09/28/2024 7:30 AM CDT Clinical Support [facility] - Lab Collection [facility]0 [facility] Floor 6 [place] [address] Multiple myeloma in remission (HCC); Multiple myeloma in relapse (HCC); Multiple myeloma, remission status unspecified (HCC) 09/28/2024 8:30 AM CDT Office Visit [facility] Bone Marrow Transplant [address] [place] [phone] Lyndsey Fagan NP Multiple myeloma, remission status unspecified (HCC) (Primary Dx); Multiple myeloma in remission (HCC); Multiple myeloma in relapse (HCC) 09/15/2024 Orders Only [facility] 1 [place] [address] Preeti Wayne RPh 09/11/2024 1:43 AM CDT - 09/15/2024 5:22 PM CDT Hospital [place] [address] [place] [address] Emory Santana MD [place]Minn, MD Bonifacio Carrillo, Choco Murcia, DO Oliguria (Primary Dx); Bacteremia Discharge Disposition: Discharge to home, home health skilled care 09/10/2024 Orders Only Urology Yesika Capone PA Elevated prostate specific antigen (PSA) (Primary Dx) 09/07/2024 Orders Only [facility] Bone Marrow Transplant [address] [place] [phone] Hermelindo Rich MD 09/06/2024 Orders Only [facility] Bone Marrow Transplant [address] [place] [phone] Lyndsey Fagan NP 08/31/2024 8:45 AM CDT Clinical Support [facility] - Lab Collection [facility]0 [address] [address] Multiple myeloma in relapse (HCC); Multiple myeloma not having achieved remission (HCC); Multiple myeloma, remission status unspecified (HCC) 08/31/2024 10:00 AM CDT Infusion [facility] [place] - Infusion [address]00 [facility] 6 [place] [address] Multiple myeloma in relapse (HCC) (Primary Dx); Multiple myeloma in remission (HCC) 08/31/2024 9:00 AM CDT Office Visit [facility] Bone Marrow Transplant [address] [place] [phone] Hermelindo Rich MD Multiple myeloma in relapse (HCC) (Primary Dx); Multiple myeloma in remission (HCC) 08/31/2024 8:15 AM CDT Clinical Support [facility] Oncology Lab [address] [place] [phone] Multiple myeloma not having achieved remission (HCC); Multiple myeloma in remission (HCC) 08/30/2024 Orders Only [facility] Scanning, Provider 08/27/2024 Documentation Nephrology Ani Anne LCSW 08/27/2024 Orders Only [facility] Bone Marrow Transplant [address] [place] [phone] Hermelindo Rich MD Multiple myeloma not having achieved remission (HCC) (Primary Dx); JOHN (acute kidney injury) 08/23/2024 11:13 PM CDT - 08/26/2024 4:50 PM CDT Hospital Encounter [address] [phone] Hermelindo Rich MD [place], Thabet J.M., MD JOHN (acute kidney injury) (Primary Dx) Discharge Disposition: Discharge to home or self care 08/25/2024 6:50 AM CDT Ancillary Procedure [facility] Vascular Lab IP 1 [facility] [address] [place] [address] 08/23/2024 7:10 PM CDT - 08/23/2024 11:59 PM CDT Hospital Encounter [facility] 1 [place] [address] Discharge Disposition: Discharge to home or self care 08/23/2024 Orders Only [address] [phone] Hermelindo Rich MD 08/23/2024 Orders Only [facility] Bone Marrow Transplant [facility]0 [address] [phone] Hermelindo Rich MD Multiple myeloma, remission status unspecified (HCC) (Primary Dx) 08/23/2024 5:24 PM CDT - 08/23/2024 11:59 PM CDT Hospital Encounter [facility] ([facility]) [address] [place] [address] Hermelindo Rich MD Elevated serum creatinine (Primary Dx); Multiple myeloma, remission status unspecified (HCC) Discharge Disposition: Discharge to home or self care 08/20/2024 Orders Only [facility] Scanning, Provider 08/10/2024 Orders Only [facility] Scanning, Provider 08/06/2024 Telephone [facility] Bone Marrow Transplant [address] [place] [phone] Lyndsey Fagan NP 08/06/2024 Orders Only [facility] Bone Marrow Transplant [address] [place] [phone] Lyndsey Fagan NP Multiple myeloma, remission status unspecified (HCC) (Primary Dx) 08/06/2024 1:45 PM SULKY DRIVER Clinical Support [facility] - Lab Collection [address] [place] [address] 08/06/2024 1:00 PM SULKY DRIVER - 08/06/2024 11:59 PM SULKY DRIVER Hospital Encounter [facility] 1 [place] [address] Multiple myeloma, remission status unspecified (HCC) Discharge Disposition: Discharge to home or self care 08/06/2024 Orders Only [facility] Bone Marrow Transplant [address] [place] [phone] Lyndsey Fagan NP JOHN (acute kidney injury) (Primary Dx) 08/06/2024 Orders Only [facility] Bone Marrow Transplant [address] [place] [phone] Hermelindo Rich MD Multiple myeloma, remission status unspecified (HCC) (Primary Dx) 08/06/2024 7:15 AM SULKY DRIVER Clinical Support [facility] - Lab Collection [address] Floor 6 [place] [address] Multiple myeloma in relapse (HCC) (Primary Dx); Multiple myeloma, remission status unspecified (HCC); JOHN (acute kidney injury) 08/06/2024 8:00 AM SULKY DRIVER Infusion [facility] - Infusion [address] Floor 6 [place] [address] Multiple myeloma not having achieved remission (HCC) (Primary Dx); Hypogammaglobulinemia 08/03/2024 Orders Only [facility] Bone Marrow Transplant [address] Floor 6 [place] [address] Hermelindo Rich MD 08/03/2024 Orders Only [facility] Bone Marrow Transplant [address] [facility] Floor 6 [place] [address] Hermelindo Rich MD 08/03/2024 Orders Only [facility] Bone Marrow Transplant [address] [facility] Floor 6 [place] [address] Hermelindo Rich MD 08/03/2024 9:30 AM SULKY DRIVER Infusion [facility] - [facility]fusion [address] Floor 6 [place] [address] Multiple myeloma in relapse (HCC) (Primary Dx); Multiple myeloma in remission (HCC) 08/03/2024 7:30 AM SULKY DRIVER Clinical Support [facility] - Lab Collection [address] Floor 6 [place] [address] Multiple myeloma in remission (HCC); Multiple myeloma, remission status unspecified (HCC); Multiple myeloma in relapse (HCC) 08/03/2024 8:30 AM SULKY DRIVER Office Visit [facility] Bone Marrow Transplant [address] [facility] Floor 6 [place] [address] Hermelindo Rich MD Multiple myeloma, remission status unspecified (HCC) (Primary Dx); Multiple myeloma in remission (HCC); Multiple myeloma in relapse (HCC) 08/02/2024 Telephone [facility] Bone Marrow Transplant [address] [place] [address] Lyndsey Fagan NP from Last 3 Months Allergies Active Allergy [...] 6 4 Active acyclovir (ZOVIRAX) 400 mg tabletIndication s:Multiple myeloma, remission status unspecified (HCC) Take 1 tablet (400 mg total) by mouth 2 (two) times a day 60 tablet 11 5 08/03/19 26 Active nebivoloL (BYSTOLIC) 5 mg tablet Take 2 tablets (10 mg total) by mouth daily 60 tablet 5 Active Active Problems Patient Care Coordination No te Formatting of this note is d ifferent from the original. BMT Inpatient Care Coordination Overview Diagnosis [place] Floor [address] Treatment Plan Clinical Trial [id number] Ramesh Reason for Admission JOHN Transplant/IEC Planning [...] Medical Assistants Post-Discharge Follow-Up Living Situation/Distance from [place], [place] (45 min) Caregiver Self, Lab/Transfusion Frequency Phone: Fax: Venous Access & Care implanted vascular device Local Oncologist Contact Phone: Fax: Post-Discharge Office Visit (H30) [facility] 08/31 Miscellaneous Notes: Problem Noted Date Diagnosed [...] is a risk of orbital injury and ASSISTANT CLINICAL DIRECTOR injury which could result in blindness or [...] this. Assessment & Plan (07/09/2022 7:42 PM SULKY DRIVER): I talked with him quite a [...] weeks. Assessment & Plan (05/26/2022 4:16 PM SULKY DRIVER): He does have pretty significant sinusitis [...] day. Assessment & Plan (05/26/2022 4:17 PM SULKY DRIVER): It is very possible that his cough could be due to sinusitis also. Hopefully that will continue to improve as we treat. He understands. Immunocompromised 11/13/2021 Multiple myeloma not having achieved remission 0 10/28/2021 Cancer Staging:Clinical stage from 10/16/2021:RISS Stage II(Cedf-6-vphjebuejswvd (mg/L): 3.7, Albumin (g/dL): 4.2, ISS: Stage [...] and Dexamethasone in June 2021 Clinical trial [id number] initiated on 10/29/21; C46D1 08/03/24. BMT following [...] he got a TTE on 10/19 at [place] however unclear why not currently in the system - May need to repeat TTE prior to treatment if results unavailable - Continue OI ppx with acyclovir 400mg BID - Begin trial [id number], a Bispecific Antibody Targeting BCMA treatment - [...] he got a TTE on 10/19 at [place] however unclear why not currently in the system - May need to repeat TTE prior to treatment if results unavailable - Continue OI ppx with acyclovir 400mg BID - Begin trial [id number], a Bispecific Antibody Targeting BCMA treatment - [...] BID Assessment & Plan (05/31/2021 10:51 AM SULKY DRIVER): Continue home pepcid, asx Renal mass 05/30/2021 Assessment & Plan (05/31/2021 10:51 AM SULKY DRIVER): Admitted for observation after L renal [...] 07/17/2023 Assessment & Plan (05/31/2021 10:52 AM SULKY DRIVER): Follows with oncology on daratumumab monotherapy [...] blood in urine Follow up pathology from [id number] high-grade papillary urothelial carcinoma (grade 2) --follow [...] blood in urine Follow up pathology from [id number] high-grade papillary urothelial carcinoma (grade 2) --follow [...] supplementation Assessment & Plan (05/31/2021 10:51 AM SULKY DRIVER): Stable on home losartan, nebivolol, triamterene-HCTZ [...] drink = 0.6 oz pur e alcohol) [facility] [employer] Answer Date Recorded In the past 12 months has th e [employer], gas, oil, or water company threatened to [...] often do you attend chur ch or caodaism services? More than 4 times per year 09/13/2024 Do you belong to any clubs o r organizations such as scientologist groups, unions, fraternal or athletic groups, or [...] any time in the past 12 m [facility], were you homeless or living in a jail (including now)? No 09/13/2024 Personal Safety Answer Date Recorded Have you ever been in or are you currently in a harmful physical or emotional relationship or is someone making you feel afraid or unsafe? Denies 09/11/2024 Sex and Gender Information Value Date Recorded Sex Assigned at Not on file Legal Sex 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 SULKY DRIVER Gender Identity Not on file Sexual [...] 10:15 AM CDT Height 175.3 cm (5' 9) 10/20/2024 10:15 AM CDT Body Mass Index 39.4 10/20/2024 10:15 AM CDT Plan of Treatment Upcoming Encounters Date Type Department Care Team (Latest Contact Info) Description 12/16/2024 10:15 AM CDT Hospital Encounter [facility] [address] [place] [phone] [place] [address] [place] [phone] 12/16/2024 10:15 AM CDT - 12/16/2024 12:15 PM CDT Surgery [facility] [address] [place] [phone] [place] [address] [place] [phone] Cystoscopy, Bilateral Retrograde Pyelograms Scheduled Procedures Name Priority Associated Diagnoses Date/Ti me CYSTOSCOPY RETROGRADE PYELOGRAM - INSERTION URETERAL STENT Enlarged prostate with urinary obstruction Bladder stone 12/16/2024 10:15 AM CDT CYSTOSCOPY HOLMIUM LASER LITHOTRIPSY BLADDER STONE Enlarged prostate with urinary obstruction Bladder stone 12/16/2024 10:15 AM CDT CYSTOSCOPY/TRANSURETHRAL RESECTION OF PROSTATE Enlarged prostate with urinary obstruction Bladder stone 12/16/2024 10:15 AM CDT Medical Devices Implanted Type Area Personal Assistant Device Identifier Shelf Expiration Date Model / Serial / Lot Port Other - see comments Right: Chest Wall Description:Upon arrival to , not accessed Procedures Procedure Name Priority Date/Time Associated Diagnosis Comments EGFR Routine 10/19/2024 7:50 AM CDT Multiple myeloma, remission status unspecified (HCC) DIFFERENTIAL AUTO Routine 10/19/2024 7:5 0 AM CDT Multiple myeloma, remission status unspecified (HCC) CBC WITH AUTO DIFFERENTIAL Routine 10/19/2024 7:50 AM CDT Multiple myeloma, remission status unspecified (HCC) COMPREHENSIVE METABOLIC PANEL Routine 10/19/2024 7:50 AM CDT Multiple myeloma, remission status unspecified (HCC) IGA Routine 10/19/2024 7:50 AM CDT Multiple myeloma, remission status unspecified (HCC) IGG Routine 10/19/2024 7:50 AM CDT Multiple myeloma, remission status unspecified (HCC) IGM Routine 10/19/2024 7:50 AM CDT Multiple myeloma, remission status unspecified (HCC) IMMUNOGLOBULIN FREE LIGHT CHAINS Routine 10/19/2024 7:50 AM CDT Multiple myeloma, remission status unspecified (HCC) LACTATE DEHYDROGENASE Routine 10/19/2024 7:50 AM CDT Multiple myeloma, remission status unspecified (HCC) PROTEIN ELECTROPHORESIS, WITH REFLEX, SERUM Routine 10/19/2024 7:50 AM CDT Multiple myeloma, remission status unspecified (HCC) IMMUNOTYPING Routine 10/19/2024 7:50 AM CDT Multiple myeloma, remission status unspecified (HCC) MRI PELVIS WO CONTRAST Schedule Routine, Read [...] AM CDT Multiple myeloma in relapse (HCC) TX INSJ NON-TUNNELED CENTRAL VENOUS CATH AGE 7 [...] Read Routine (OP Routine) 08/06/2024 2:42 PM SULKY DRIVER Multiple myeloma, remission status unspecified (HCC) URINALYSIS, MICROSCOPIC ONLY Routine 08/06/2024 9:19 AM SULKY DRIVER JOHN (acute kidney injury) PROTEIN / CREATININE RATIO, URINE, RANDOM Routine 08/06/2024 9:19 AM SULKY DRIVER JOHN (acute kidney injury) URINALYSIS AND REFLEX TO MICROSCOPIC Routine 08/06/2024 9:19 AM SULKY DRIVER JOHN (acute kidney injury) EGFR Routine 08/06/2024 7:43 AM SULKY DRIVER Multiple myeloma, remission status unspecified (HCC) DIFFERENTIAL AUTO Routine 08/06/2024 7:4 3 AM SULKY DRIVER Multiple myeloma, remission status unspecified (HCC) LACTATE DEHYDROGENASE Routine 08/06/2024 7:43 AM SULKY DRIVER Multiple myeloma, remission status unspecified (HCC) CBC WITH AUTO DIFFERENTIAL Routine 08/06/2024 7:43 AM SULKY DRIVER Multiple myeloma, remission status unspecified (HCC) COMPREHENSIVE METABOLIC PANEL Routine 08/06/2024 7:43 AM SULKY DRIVER Multiple myeloma, remission status unspecified (HCC) LIPID PANEL Routine 08/06/2024 7:43 AM SULKY DRIVER Multiple myeloma, remission status unspecified (HCC) PSA DIAGNOSTIC Routine 08/06/2024 7:43 AM SULKY DRIVER Multiple myeloma, remission status unspecified (HCC) PROTIME-INR STAT 08/03/2024 9:21 AM SULKY DRIVER Multiple myeloma in relapse (HCC) APTT STAT 08/03/2024 9:21 AM SULKY DRIVER Multiple myeloma in relapse (HCC) MAGNESIUM STAT 08/03/2024 7:40 AM SULKY DRIVER Multiple myeloma in relapse (HCC) GAMMA GT STAT 08/03/2024 7:40 AM SULKY DRIVER Multiple myeloma in relapse (HCC) EGFR Routine 08/03/2024 7:40 AM SULKY DRIVER Multiple myeloma, remission status unspecified (HCC) DIFFERENTIAL AUTO Routine 08/03/2024 7:4 0 AM SULKY DRIVER Multiple myeloma, remission status unspecified (HCC) CBC WITH AUTO DIFFERENTIAL Routine 08/03/2024 7:40 AM SULKY DRIVER Multiple myeloma, remission status unspecified (HCC) COMPREHENSIVE METABOLIC PANEL Routine 08/03/2024 7:40 AM SULKY DRIVER Multiple myeloma, remission status unspecified (HCC) IGA Routine 08/03/2024 7:40 AM SULKY DRIVER Multiple myeloma, remission status unspecified (HCC) IGG Routine 08/03/2024 7:40 AM SULKY DRIVER Multiple myeloma, remission status unspecified (HCC) IGM Routine 08/03/2024 7:40 AM SULKY DRIVER Multiple myeloma, remission status unspecified (HCC) IMMUNOGLOBULIN FREE LIGHT CHAINS Routine 08/03/2024 7:40 AM SULKY DRIVER Multiple myeloma, remission status unspecified (HCC) LACTATE DEHYDROGENASE Routine 08/03/2024 7:40 AM SULKY DRIVER Multiple myeloma, remission status unspecified (HCC) PROTEIN ELECTROPHORESIS, WITH REFLEX, SERUM Routine 08/03/2024 7:40 AM SULKY DRIVER Multiple myeloma, remission status unspecified (HCC) IMMUNOTYPING Routine 08/03/2024 7:40 AM SULKY DRIVER Multiple myeloma, remission status unspecified (HCC) HEMOGLOBIN A1C Routine 08/03/2024 7:40 AM SULKY DRIVER Multiple myeloma, remission status unspecified (HCC) URINALYSIS, MICROSCOPIC ONLY Routine 08/03/2024 7:30 AM SULKY DRIVER Multiple myeloma, remission status unspecified (HCC) URINE CULTURE Routine 08/03/2024 7:30 AM SULKY DRIVER URINALYSIS AND REFLEX TO MICROSCOPIC AND CULTURE Routine 08/03/2024 7:30 AM SULKY DRIVER Multiple myeloma, remission status unspecified (HCC) HEPATITIS C ANTIBODY STAT 10/16/2021 9:50 AM CDT Multiple myeloma in relapse (HCC) from Last 3 Months or Most Recently Relevant to Health Maintenance Results * Immunotyping, serum with interpretation (10/19/2024 7:50 AM CDT) Immunosubtraction Please see comment Comment: NO PARAPROTEIN DETECTED Reviewed and signed by Rufino Huff MD, PhD 10/20/2024 Blood 10/19/2024 7:50 AM CDT 10/19/2024 8:54 AM CDT us Hermelindo Butler MD LAB BLOOD ORDER ELANA Final Result MT ERICK [facility] [place] [address] * (ABNORMAL) eGFR (10/19/2024 7:50 AM CDT) eGFR 42(L) >=60 mL/min/1. 73 m2 Comment: Interpretive Data [...] interpretive data was last reviewed 2021. Blood 10/19/2024 7:50 AM CDT 10/19/2024 7:57 AM CDT us Hermelindo Butler MD LAB BLOOD ORDER ELANA Final Result MT SUAREZ [facility] [place] [address] * Differential, auto (10/19/2024 7:50 AM CDT) Neutrophil abs 5.71 1.50 - 6.50 K/cumm Comment:Testing performed by : [facility], [address] [place] [address] Lymphocyte abs 0.94 0.80 - 3.30 K/cumm CERNER BJ Comment:Testing performed by : [facility], [address] [place] [address] Monocyte abs 0.44 0.20 - 0.80 K/cumm CERNER BJ Comment:Testing performed by : [facility], [address] [place] [address] Eosinophil abs 0.35 0.00 - 0.50 K/cumm CERNER BJ Comment:Testing performed by : [facility], [address] [place] [phone] Basophil abs 0.06 0.00 - 0.10 K/cumm CERNER BJ Comment:Testing performed by : [facility], [address] [place] [phone] Neutrophil pct 76.2 % CERNER BJ Comment: Interpretive Data Percent cell count reference ranges are not reported, since discordance with absolute values may lead to misinterpretation of CBC data. Current Interpretive Data was last revised on 2017. Testing performed by: [facility], [address] [place] [phone] Lymphocyte pct 12.6 % CERNER BJ Comment: Interpretive Data Percent cell count reference ranges are not reported, since discordance with absolute values may lead to misinterpretation of CBC data. Current Interpretive Data was last revised on 2017. Testing performed by: [facility], [address] [place] [phone] Monocyte pct 5.9 % CERNER BJH Comment: Interpretive Data Percent cell count reference ranges are not reported, since discordance with absolute values may lead to misinterpretation of CBC data. Current Interpretive Data was last revised on 2017. Testing performed by: [facility], [address] [place] [phone] Eosinophil pct 4.6 % MT SUAREZ Comment: Interpretive Data Percent cell count reference ranges are not reported, since discordance with absolute values may lead to misinterpretation of CBC data. Current Interpretive Data was last revised on 2017. Testing performed by: [facility], [address] [place] [phone] Basophil pct 0.8 % MT SUAREZ Comment: Interpretive Data Percent cell count reference ranges are not reported, since discordance with absolute values may lead to misinterpretation of CBC data. Current Interpretive Data was last revised on 2017. Testing performed by: [facility], [address] [place] [phone] Blood 10/19/2024 7:50 AM CDT 10/19/2024 7:57 AM CDT Hermelindo Butler MD LAB BLOOD ORDER ELANA Final Result MT SUAREZ [facility] [place] [address] * (ABNORMAL) Immunoglobulin free light chains (10/19/2024 7:50 AM CDT) [place]/Lambda ratio [place] [facility] See Comment 0.26 - 1.65 Comment: Unable to calculate exact result. Interpretive Data The Binding Site FreeLite assay procedure was used. Results from different manufacturers or methods may not be comparable. Serial testing should be performed using the same methods and instrumentation. Current Interpretive Data was last revised on 2023. [place] free light chain [facility] <0.06(L) 0.33 - 1.94 mg/dL MT SUAREZ Comment: Interpretive Data The Binding Site FreeLite assay procedure was used. Results from different manufacturers or methods may not be comparable. Serial testing should be performed using the same methods and instrumentation. Current Interpretive Data was last revised on 2023. L[place] free light chain BJ <0.14(L) 0.57 - 2.63 mg/dL MT SUAREZ Comment: Interpretive Data The Binding Site FreeLite assay procedure was used. Results from different manufacturers or methods may not be comparable. Serial testing should be performed using the same methods and instrumentation. Current Interpretive Data was last revised on 2023. Blood 10/19/2024 7:50 AM CDT 10/19/2024 8:54 AM CDT us Hermelindo Butler MD LAB BLOOD ORDER ELANA Final Result MT SUAREZ [facility] [place] [address] * (ABNORMAL) CBC with auto differential (10/19/2024 7:50 AM CDT) WBC 7.49 3.80 - 9.90 K/cumm Comment:Testing performed by : [facility], [address] [place] [address] Hgb 12.1(L) 13.0 - 17.5 g/dL CERNER BJ Comment:Testing performed by : [facility], [address] [place] [address] Hct 34.9(L) 38.9 - 50.3 % CERFRANK BJ Comment:Testing performed by : [facility], [address] [place] [address] Plt 263 150 - 400 K/cumm CERFRANK BJ Comment:Testing performed by : [facility], [address] [place] [address] MPV 7.0 6.8 - 10.4 fL CERFRANK BJ Comment:Testing performed by : [facility], [address] [place] [address] RBC 3.76(L) 4.30 - 5.80 M/cumm CERFRANK BJ Comment:Testing performed by : [facility], [address] [place] [phone] MCV 92.8 81.3 - 96.4 fL MT [facility] Comment:Testing performed by : [facility], [address] [place], [place] [phone] MCH 32.0 27.1 - 33.3 pg MT SUAREZ Comment:Testing performed by : [facility], [address] [place], [place] [phone] MCHC 34.5 32.3 - 35.7 g/dL MT SUAREZ Comment:Testing performed by : [facility], [address] [place] [address] RDW CV 15.2(H) 11.1 - 14.9 % MT [facility] Comment:Testing performed by : [facility], [address] [place], [place] [phone] NRBC abs 0.00 0.00 - 0.01 K/cumm MT [facility] Comment:Testing performed by : [facility], [address] [place] [address] Blood 10/19/2024 7:50 AM CDT 10/19/2024 7:57 AM CDT Hermelindo Butler MD LAB BLOOD ORDER ELANA Final Result [facility] [place] [address] * (ABNORMAL) Protein electrophoresis with reflex, serum with interpretation (10/19/2024 7:50 AM CDT) Protein, sr 5.9(L) 6.2 - 8.2 g/dL Albumin 3.8 3.2 - 5.0 g/dL [facility] Alpha-1 globulin 0.4 0.2 - 0.4 g/dL [facility] Alpha-2 globulin 0.8 0.5 - 1.0 g/dL [facility] Beta-1 globulin 0.5 0.3 - 0.6 g/dL [facility] Beta-2 globulin 0.3 0.2 - 0.6 g/dL [facility] Gamma globulin 0.1(L) 0.5 - 1.7 g/dL [facility] SPEP interp Please see comment [facility] Comment: No apparent monoclonal peak Decreased gamma globulins Electrophoretic pattern appears similar to previous sample 09-29-24 See immunotyping for further information Reviewed and signed by Rufino Huff MD, PhD 10/20/2024 Blood 10/19/2024 7:50 AM CDT 10/19/2024 8:54 AM CDT Hermelindo Butler MD LAB BLOOD ORDER ELANA Final Result Performing Organization Address City/[facility] Co de Phone Number [facility] [address] * Lactate dehydrogenase (LD) (10/19/2024 7:50 AM CDT) Lactate dehydrogenase (LDH) 145 100 - 250 Units/L Blood 10/19/2024 7:50 AM CDT 10/19/2024 7:57 AM CDT Hermelindo Butler MD LAB BLOOD ORDER ELANA Final Result Performing Organization Address City/[facility] Co de Phone Number [facility] [place] [employer] [place] [address] * (ABNORMAL) IgA (10/19/2024 7:50 AM CDT) Immunoglobulin A <50(L) 70 - 400 mg/dL Blood 10/19/2024 7:50 AM CDT 10/19/2024 9:00 AM CDT Hermelindo Butler MD LAB BLOOD ORDER ELANA Final Result Performing Organization Address City/[facility]/ZIP Co de Phone Number [facility] [place] [address] * (ABNORMAL) IgM (10/19/2024 7:50 AM CDT) Pathologist [facility] Immunoglobulin M <25(L) 40 - 230 mg/dL Blood 10/19/2024 7:50 AM CDT 10/19/2024 9:00 AM CDT Hermelindo Butler MD LAB BLOOD ORDER ELANA Final Result Performing Organization Address City/[facility] Co de Phone Number [facility] Department [place] [address] * (ABNORMAL) IgG (10/19/2024 7:50 AM CDT) Pathologist [facility] Immunoglobulin G <300(L) 700 - 1,600 mg/dL Blood 10/19/2024 7:50 AM CDT 10/19/2024 9:00 AM CDT Hermelindo Butler MD LAB BLOOD ORDER ELANA Final Result Performing Organization Address [facility] de Phone Number [facility] Department [place] [address] * (ABNORMAL) Comprehensive metabolic panel (10/19/2024 7:50 AM CDT) [facility] Sodium 142 135 - 145 mmol/L Potassium, pl 4.4 3.3 - 4.9 mmol/L [facility] Chloride 106 97 - 110 mmol/L [facility] CO2 26 22 - 32 mmol/L [facility] Anion gap 10 2 - 15 mmol/L [facility] BUN 42(H) 6 - 25 mg/dL [facility] Creatinine 1.73(H) 0.80 - 1.30 mg/dL [facility] Glucose 109 70 - 199 mg/dL [facility] Comment: Interpretive Data Fasting glucose >/= [...] Calcium 9.5 8.5 - 10.3 mg/dL CERNER [facility] Bilirubin, total 0.4 0.1 - 1.2 mg/dL CERNER [facility] Protein, pl 6.3(L) 6.5 - 8.5 g/dL CERNER [facility] Albumin 4.0 3.5 - 5.0 g/dL CERNER [facility] Alk phos 71 40 - 130 Units/L C[facility]ER [facility] ALT 16 7 - 55 Units/L CERNER [facility] AST 15 10 - 50 Units/L [facility] Blood 10/19/2024 7:50 AM CDT 10/19/2024 7:57 AM CDT us Hermelindo Butler MD LAB BLOOD ORDER ELANA Final Result [facility] [place] [address] * MRI Pelvis WO Contrast (10/10/2024 8:14 [...] CT. Electronically signed by: Tremaine Ceballos M.D. us Yesika NEUMANN IMG MRI PROCEDURES [place] l Result * SCAN - LABS (10/05/2024) us Provider Scanning Edited Result - Final * Immunotyping, serum with interpretation (09/28/2024 7:43 AM CDT) Pathologist [facility] Immunosubtraction Please see comment Comment: NO PARAPROTEIN DETECTED Reviewed and signed by Ivan Sims MD, PhD 09/29/2024 Blood 09/28/2024 7:43 AM CDT 09/28/2024 9:50 AM CDT Hermelindo Butler MD LAB BLOOD ORDER ELANA Final Result Performing Organization Address City/State/ZIP Co in Phone Number [facility] [place] [address] * (ABNORMAL) eGFR (09/28/2024 7:43 AM CDT) [...] ORDER ELANA Final Result Performing Organization Address City/[facility]/ZIP Co de Phone Number MT [facility] [place] [address] * (ABNORMAL) eGFR (09/28/2024 7:43 AM CDT) [...] ORDER ELANA Final Result Performing Organization Address City/[facility]/ZIP Co de Phone Number [facility] [place] [address] * (ABNORMAL) Differential, auto (09/28/2024 7:43 AM CDT) Neutrophil abs 5.12 1.50 - 6.50 K/cumm Comment:Testing performed by : [facility], [address] [place], [place] [phone] Lymphocyte abs 0.72(L) 0.80 - 3.30 K/cumm [facility] Comment:Testing performed by : [facility], [address] [place], [place] [phone] Monocyte abs 0.50 0.20 - 0.80 K/cumm [facility] Comment:Testing performed by : [facility], [address] [place], [place] [phone] Eosinophil abs 0.15 0.00 - 0.50 K/cumm [facility] Comment:Testing performed by : [facility], [address] [place] [address] Basophil abs 0.04 0.00 - 0.10 K/cumm [facility] Comment:Testing performed by : [facility], [address] [place], [place] [phone] Neutrophil pct 78.4 % [facility] Comment: Interpretive Data Percent cell count reference ranges are not reported, since discordance with absolute values may lead to misinterpretation of CBC data. Current Interpretive Data was last revised on 2017. Testing performed by: [facility], [address] [place], [place] [phone] Lymphocyte pct 11.0 % [facility] Comment: Interpretive Data Percent cell count reference ranges are not reported, since discordance with absolute values may lead to misinterpretation of CBC data. Current Interpretive Data was last revised on 2017. Testing performed by: [facility], [address] [place] [phone] Monocyte pct 7.7 % [facility] Comment: Interpretive Data Percent cell count reference ranges are not reported, since discordance with absolute values may lead to misinterpretation of CBC data. Current Interpretive Data was last revised on 2017. Testing performed by: [facility], [address] [place] [phone] Eosinophil pct 2.3 % [facility] Comment: Interpretive Data Percent cell count reference ranges are not reported, since discordance with absolute values may lead to misinterpretation of CBC data. Current Interpretive Data was last revised on 2017. Testing performed by: [facility], [address] [place] [phone] Basophil pct 0.7 % MT SUAREZ Comment: Interpretive Data Percent cell count reference ranges are not reported, since discordance with absolute values may lead to misinterpretation of CBC data. Current Interpretive Data was last revised on 2017. Testing performed by: [facility], [address] [place] [phone] Blood 09/28/2024 7:43 AM CDT 09/28/2024 8:00 AM CDT Hermelindo Butler MD LAB BLOOD ORDER ELANA Final Result MT SUARE[facility] [place] [address] * (ABNORMAL) Immunoglobulin free light chains (09/28/2024 7:43 AM CDT) [place]/Lambda ratio [facility] See Comment 0.26 - 1.65 Comment: Unable to calculate exact result. Interpretive Data The Binding Site FreeLite assay procedure was used. Results from different manufacturers or methods may not be comparable. Serial testing should be performed using the same methods and instrumentation. Current Interpretive Data was last revised on 2023. [place] free light chain [facility] <0.06(L) 0.33 - 1.94 mg/dL MT SUAREZ Comment: Interpretive Data The Binding Site FreeLite assay procedure was used. Results from different manufacturers or methods may not be comparable. Serial testing should be performed using the same methods and instrumentation. Current Interpretive Data was last revised on 2023. [place] free light chain [facility] <0.14(L) 0.57 - 2.63 mg/dL MT SUAREZ Comment: [...] LAB BLOOD ORDER ELANA Final Result [facility] [place] [address] * (ABNORMAL) CBC with auto differential (09/28/2024 7:43 AM CDT) WBC 6.53 3.80 - 9.90 K/cumm Comment:Testing performed by : [facility], [address] [place] [address] Hgb 11.5(L) 13.0 - 17.5 g/dL CERFRANK SUAREZ Comment:Testing performed by : [facility], [address] [place] [address] Hct 34.4(L) 38.9 - 50.3 % CERFRANK BJ Comment:Testing performed by : [facility], [address] [place] [address] Plt 229 150 - 400 K/cumm MT SUAREZ Comment:Testing performed by : [facility], [address] [place] [address] MPV 7.0 6.8 - 10.4 fL CERFRANK BJ Comment:Testing performed by : [facility], [address] [place] [address] RBC 3.61(L) 4.30 - 5.80 M/cumm CERFRANK BJ Comment:Testing performed by : [facility], [address] [place] [address] MCV 95.2 81.3 - 96.4 fL CERFRANK BJ Comment:Testing performed by : [facility], [address] [place] [address] MCH 31.7 27.1 - 33.3 pg CERFRANK SUAREZH Comment:Testing performed by : [facility], [address] [place] [phone] MCHC 33.3 32.3 - 35.7 g/dL MT SUAREZ Comment:Testing performed by : [facility], [address] [place], [place] [phone] RDW CV 15.6(H) 11.1 - 14.9 % MT [facility] Comment:Testing performed by : [facility], [address] [place] [phone] NRBC abs 0.00 0.00 - 0.01 K/cumm MT [facility] Comment:Testing performed by : [facility], [address] [place] [phone] Blood 09/28/2024 7:43 AM CDT 09/28/2024 8:00 AM CDT Hermelindo Butler MD LAB BLOOD ORDER ELANA Final Result Performing Organization Address [facility] de Phone Number [facility] [place] [address] * aPTT (09/28/2024 7:43 AM CDT) aPTT [...] ORDER ELANA Final Result Performing Organization Address City/[facility] Co de Phone Number [facility] [place] [address] * Protime-INR (09/28/2024 7:43 AM CDT) PT 11.9 9.7 - 13.0 sec INR 1.10 0.90 - 1.20 [facility] Comment: Interpretive data Oral anticoagulant therapeutic ranges: Venous thromboembolism prophylaxis or treatment: 2.0-3.0 CARDIOLOGY Standard range: 2.0-3.0 High-intensity range: 2.5-3.5 Refer to indication-specific guidelines for appropriate target ranges for prosthetic heart valve replacement. Current interpretive data was last revised on 2019. Blood 09/28/2024 7:43 AM CDT 09/28/2024 8:16 AM CDT Hermelindo Butler MD LAB BLOOD ORDER ELANA Final Result [facility] [place] [address] * (ABNORMAL) Protein electrophoresis with reflex, serum with interpretation (09/28/2024 7:43 AM CDT) Protein, sr 5.6(L) 6.2 - 8.2 g/dL Albumin 3.7 3.2 - 5.0 g/dL [facility] Alpha-1 globulin 0.4 0.2 - 0.4 g/dL [facility] Alpha-2 globulin 0.8 0.5 - 1.0 g/dL [facility] Beta-1 globulin 0.4 0.3 - 0.6 g/dL [facility] Beta-2 globulin 0.2 0.2 - 0.6 g/dL [facility] Gamma globulin 0.1(L) 0.5 - 1.7 g/dL [facility] SPEP interp Please see comment [facility] Comment: No apparent monoclonal peak Decreased gamma globulins Electrophoretic pattern appears similar to previous sample 09-01-24 See immunotyping for further information Reviewed and signed by Ivan Sims MD, PhD 09/29/2024 Blood 09/28/2024 7:43 AM CDT 09/28/2024 9:50 AM CDT Hermelindo Butler MD LAB BLOOD ORDER ELANA Final Result Performing Organization Address City/[facility] de Phone Number [facility] [address] * Magnesium (09/28/2024 7:43 AM CDT) Magnesium 2.2 1.4 - 2.5 mg/dL Blood 09/28/2024 7:43 AM CDT 09/28/2024 8:03 AM CDT us Hermelindo Butler MD LAB BLOOD ORDER ELANA Final Result Performing Organization Address [facility] de Phone Number [facility] [place] [address] * Lactate dehydrogenase (LD) (09/28/2024 7:43 AM CDT) Lactate dehydrogenase (LDH) 132 100 - 250 Units/L Blood 09/28/2024 7:43 AM CDT 09/28/2024 8:03 AM CDT us Hermelindo Butler MD LAB BLOOD ORDER ELANA Final Result Performing Organization Address [facility] de Phone Number [facility] [address] * Gamma GT (09/28/2024 7:43 AM CDT) GGT 28 10 - 50 Units/L Blood 09/28/2024 7:43 AM CDT 09/28/2024 8:03 AM CDT Hermelindo Butler MD LAB BLOOD ORDER ELANA Final Result Performing Organization Address City/[facility]/ZIP Co de Phone Number [facility] [address] * (ABNORMAL) IgA (09/28/2024 7:43 AM CDT) Immunoglobulin A <50(L) 70 - 400 mg/dL Blood 09/28/2024 7:4 3 AM CDT 09/28/2024 8:24 AM CDT Hermelindo Butler MD LAB BLOOD ORDER ELANA Final Result Performing Organization Address [facility] [place] [address] * (ABNORMAL) IgM (09/28/2024 7:43 AM CDT) Pathologist [facility] Immunoglobulin M <25(L) 40 - 230 mg/dL Blood 09/28/2024 7:43 AM CDT 09/28/2024 8:24 AM CDT Hermelindo Butler MD LAB BLOOD ORDER ELANA Final Result Performing Organization Address [facility] de Phone Number [facility] [place] [address] * (ABNORMAL) IgG (09/28/2024 7:43 AM CDT) [facility] Immunoglobulin G <300(L) 700 - 1,600 mg/dL Blood 09/28/2024 7:43 AM CDT 09/28/2024 8:24 AM CDT us Hermelindo Butler MD LAB BLOOD ORDER ELANA Final Result Performing Organization Address [facility] Co de Phone Number [facility] [place] [address] * (ABNORMAL) Comprehensive metabolic panel (09/28/2024 7:43 AM CDT) Sodium 143 135 - 145 mmol/L Potassium, pl 4.1 3.3 - 4.9 mmol/L [facility] Chloride 106 97 - 110 mmol/L [facility] CO2 27 22 - 32 mmol/L [facility] Anion gap 10 2 - 15 mmol/L [facility] BUN 30(H) 6 - 25 mg/dL BANNERNER [facility] Creatinine 1.80(H) 0.80 - 1.30 mg/dL BANNERNER [facility] Glucose 106 70 - 199 mg/dL [facility] Comment: Interpretive Data Fasting glucose >/= [...] Calcium 9.6 8.5 - 10.3 mg/dL [facility] Bilirubin, total 0.5 0.1 - 1.2 mg/dL [facility] Protein, pl 6.2(L) 6.5 - 8.5 g/dL [facility] Albumin 3.9 3.5 - 5.0 g/dL [facility] Alk phos 62 40 - 130 Units/L [facility] ALT 12 7 - 55 Units/L [facility] AST 13 10 - 50 Units/L [facility] Blood 09/28/2024 7:43 AM CDT 09/28/2024 8:02 AM CDT us Hermelindo Butler MD LAB BLOOD ORDER ELANA Final Result [facility] [place] [address] * (ABNORMAL) Comprehensive metabolic panel (09/28/2024 7:43 AM CDT) Sodium 143 135 - 145 mmol/L Potassium, pl 4.1 3.3 - 4.9 mmol/L [facility] Chloride 106 97 - 110 mmol/L [facility] CO2 27 22 - 32 mmol/L [facility] Anion gap 10 2 - 15 mmol/L [facility] BUN 31(H) 6 - 25 mg/dL [facility] Creatinine 1.80(H) 0.80 - 1.30 mg/dL [facility] Glucose 105 70 - 199 mg/dL [facility] Comment: Interpretive Data Fasting glucose >/= [...] Calcium 9.6 8.5 - 10.3 mg/dL [facility] Bilirubin, total 0.5 0.1 - 1.2 mg/dL [facility] Protein, pl 6.1(L) 6.5 - 8.5 g/dL [facility] Albumin 4.0 3.5 - 5.0 g/dL [facility] Alk phos 61 40 - 130 Units/L [facility] ALT 13 7 - 55 Units/L [facility] AST 13 10 - 50 Units/L [facility] Blood 09/28/2024 7:43 AM CDT 09/28/2024 8:03 AM CDT us Hermelindo Butler MD LAB BLOOD ORDER ELANA Final Result [facility] [place] [address] * [place] INSJ NON-TUNNELED CENTRAL VENOUS CATH AGE 7 YR/> (09/15/2024 1:20 PM CDT) Narrative Lianna Denny PA - 09/15/2024 1:20 PM CDT Lianna Denny PA 09/15/2024 1:40 PM Midline Insertion Date/Time: 09/15/2024 1:20 PM Performed by: Lianna Denny PA Authorized by: Lianna Denny PA Holiday Protocol: RN Notified of Procedure: yes Informed consent: Risks, benefits, alternatives discussed and patient/student services representative/guardian agrees and accepts Patient's stated name/ [...] * (ABNORMAL) eGFR (09/15/2024 3:52 AM CDT) [facility] eGFR 52(L) >=60 mL/min/1. 73 m2 [...] Santana MD LAB BLOOD ORDERABLES Final Result [facility] [address] [place] [address] * (ABNORMAL) CBC without differential (09/15/2024 3:52 AM CDT) [facility] WBC 6.46 3.80 - 9.90 K/cumm Hgb 10.1(L) 13.0 - 17.5 g/dL [facility] Hct 31.4(L) 38.9 - 50.3 % [facility] Plt 149(L) 150 - 400 K/cumm [facility] MPV 9.2 9.1 - 12.3 fL [facility] RBC 3.20(L) 4.30 - 5.80 M/cumm [facility] MCV 98.1(H) 81.3 - 96.4 fL [facility] MCH 31.6 27.1 - 33.3 pg [facility] MCHC 32.2(L) 32.3 - 35.7 g/dL [facility] RDW CV 14.9 11.1 - 14.9 % [facility] RDW SD 54.3(H) 35.7 - 48.1 fL [facility] NRBC abs 0.00 0.00 - 0.01 K/cumm [facility] Blood 09/15/2024 3:52 AM CDT 09/15/2024 4:02 AM CDT us Emory Santana MD LAB BLOOD ORDERABLES Final Result [facility] [address] [place] [address] * (ABNORMAL) Basic metabolic panel (09/15/2024 3:52 AM CDT) Sodium 143 135 - 145 mmol/L Potassium, pl 3.2(L) 3.3 - 4.9 mmol/L [facility] Chloride 105 97 - 110 mmol/L [facility] CO2 28 22 - 32 mmol/L [facility] Anion gap 10 2 - 15 mmol/L [facility] BUN 12 6 - 25 mg/dL [facility] Creatinine 1.45(H) 0.80 - 1.30 mg/dL [facility] Glucose 110 70 - 199 mg/dL [facility] Comment: Interpretive Data Fasting glucose >/= 126 [...] 2022. Calcium 8.2(L) 8.5 - 10.3 mg/dL [facility] Blood 09/15/2024 3:52 AM CDT 09/15/2024 4:02 AM CDT us Emory Santana MD LAB BLOOD ORDERABLES Final Result Performing Organization Address [facility] Co de Phone Number [facility] Alyse Jag [address] Department [employer] [place], [place] [id number] * (ABNORMAL) eGFR (09/14/2024 2:25 AM CDT) [...] BLOOD ORDERABLES Final Result Performing Organization Address City/[facility]/ZIP Co de Phone Number [facility] [address] Department [employer] [place], [place] [id number] * (ABNORMAL) CBC without differential (09/14/2024 2:25 AM CDT) WBC 5.62 3.80 - 9.90 K/cumm Hgb 10.0(L) 13.0 - 17.5 g/dL [facility] Hct 31.1(L) 38.9 - 50.3 % [facility] Plt 163 150 - 400 K/cumm [facility] MPV 9.3 9.1 - 12.3 fL [facility] RBC 3.15(L) 4.30 - 5.80 M/cumm [facility] MCV 98.7(H) 81.3 - 96.4 fL [facility] MCH 31.7 27.1 - 33.3 pg [facility] MCHC 32.2(L) 32.3 - 35.7 g/dL [facility] RDW CV 15.4(H) 11.1 - 14.9 % [facility] RDW SD 55.6(H) 35.7 - 48.1 fL [facility] NRBC abs 0.00 0.00 - 0.01 K/cumm [facility] Blood 09/14/2024 2:25 AM CDT 09/14/2024 2:44 AM CDT us Emory Santana MD LAB BLOOD ORDERABLES Final Result [facility] [address] [place] [address] * (ABNORMAL) Basic metabolic panel (09/14/2024 2:25 AM CDT) Sodium 146(H) 135 - 145 mmol/L Potassium, pl 3.3 3.3 - 4.9 mmol/L [facility] Chloride 108 97 - 110 mmol/L [facility] CO2 27 22 - 32 mmol/L [facility] Anion gap 11 2 - 15 mmol/L [facility] BUN 18 6 - 25 mg/dL [facility] Creatinine 1.53(H) 0.80 - 1.30 mg/dL [facility] Glucose 116 70 - 199 mg/dL [facility] Comment: Interpretive Data Fasting glucose >/= 126 [...] 2022. Calcium 8.1(L) 8.5 - 10.3 mg/dL [facility] Blood 09/14/2024 2:25 AM CDT 09/14/2024 2:44 AM CDT us Emory Santana MD LAB BLOOD ORDERABLES Final Result [facility] [address] [place] [address] * (ABNORMAL) eGFR (09/13/2024 3:21 AM CDT) [...] Organization Address [facility]/ZIP Co de Phone Number [facility] [address] [employer] [place], [place] [id number] * (ABNORMAL) CBC without differential (09/13/2024 3:21 AM CDT) Pathologist [facility] WBC 5.46 3.80 - 9.90 K/cumm Hgb 10.1(L) 13.0 - 17.5 g/dL [facility] Hct 30.8(L) 38.9 - 50.3 % [facility] Plt 160 150 - 400 K/cumm [facility] MPV 9.7 9.1 - 12.3 fL [facility] RBC 3.15(L) 4.30 - 5.80 M/cumm [facility] MCV 97.8(H) 81.3 - 96.4 fL [facility] MCH 32.1 27.1 - 33.3 pg [facility] MCHC 32.8 32.3 - 35.7 g/dL [facility] RDW CV 15.7(H) 11.1 - 14.9 % [facility] RDW SD 56.4(H) 35.7 - 48.1 fL [facility] NRBC abs 0.00 0.00 - 0.01 K/cumm [facility] Blood 09/13/2024 3:21 AM CDT 09/13/2024 3:48 AM CDT Emory Santana MD LAB BLOOD ORDERABLES Final Result Performing Organization Address City/[facility]/ZIP Co de Phone Number [facility] [address] Department [employer] [place], [place] [id number] * (ABNORMAL) Basic metabolic panel (09/13/2024 3:21 AM CDT) Pathologist [facility] Sodium 141 135 - 145 mmol/L Potassium, pl 3.3 3.3 - 4.9 mmol/L [facility] Chloride 105 97 - 110 mmol/L [facility] CO2 24 22 - 32 mmol/L [facility] Anion gap 12 2 - 15 mmol/L [facility] BUN 24 6 - 25 mg/dL [facility] Creatinine 1.55(H) 0.80 - 1.30 mg/dL [facility] Glucose 115 70 - 199 mg/dL [facility] Comment: Interpretive Data Fasting glucose >/= 126 [...] 2022. Calcium 8.1(L) 8.5 - 10.3 mg/dL [facility] Blood 09/13/2024 3:21 AM CDT 09/13/2024 3:48 AM CDT us Emory Santana MD LAB BLOOD ORDERABLES Final Result [facility] [address] [place] [address] * TRANSTHORACIC ECHO (TTE) COMPLETE W DOPPLER/CF WO CONTRAST (09/12/2024 2:39 PM CDT) LV EF 55-60 % CONS SCIMAGE Anatomical Region Laterality Modality Ultrasound 09/12/2024 12:1 1 PM CDT Narrative 09/12/2024 2:42 PM CDT [facility] [address] [place] [address] ECHOCARDIOGRAM Patient Name: BUFFY VALLECarl : 1950 (73y 9m) Gender: M Study Date: 09/12/2024 12:11:05 PM Ht(Inch): 69 Wt(Lb): 275.57 BSA: 2.47 Multi Sensor Operator: TC Location: [id number] Order Provider: MENDY ANUP BMI: 40.69 BP: 128/72 Ref Provider: ANUP [...] Procedure Note Choco Thomas MD - 09/12/2024 [place] [id number] [place] [address] ECHOCARDIOGRAM Patient Name: BUFFY VALLE B : 1950 (73y 9m) Gender: M Study Date: 09/12/2024 12:11:05 PM Ht(Inch): 69 Wt(Lb): 275.57 BSA: 2.47 Multi Sensor Operator: JIM Location: [address] Order Provider: ANUP SIN BMI: 40.69 [...] * (ABNORMAL) eGFR (09/12/2024 3:14 AM CDT) Pathologist [facility] eGFR 36(L) >=60 mL/min/1. 73 m2 Comment: [...] Santana MD LAB BLOOD ORDERABLES Final Result [facility] [address] Department [place] [address] * (ABNORMAL) CBC without differential (09/12/2024 3:14 AM CDT) [facility] WBC 7.12 3.80 - 9.90 K/cumm Hgb 10.3(L) 13.0 - 17.5 g/dL [facility] Hct 31.8(L) 38.9 - 50.3 % [facility] Plt 150 150 - 400 K/cumm [facility] MPV 9.5 9.1 - 12.3 fL [facility] RBC 3.23(L) 4.30 - 5.80 M/cumm [facility] MCV 98.5(H) 81.3 - 96.4 fL [facility] MCH 31.9 27.1 - 33.3 pg [facility] MCHC 32.4 32.3 - 35.7 g/dL [facility] RDW CV 15.9(H) 11.1 - 14.9 % [facility] RDW SD 57.1(H) 35.7 - 48.1 fL [facility] NRBC abs 0.00 0.00 - 0.01 K/cumm [facility] Blood 09/12/2024 3:14 AM CDT 09/12/2024 3:35 AM CDT us Emory Santana MD LAB BLOOD ORDERABLES Final Result [facility] [address] Department [place] [address] * (ABNORMAL) Basic metabolic panel (09/12/2024 3:14 AM CDT) Sodium 139 135 - 145 mmol/L Potassium, pl 3.3 3.3 - 4.9 mmol/L [facility] Chloride 101 97 - 110 mmol/L [facility] CO2 23 22 - 32 mmol/L [facility] Anion gap 15 2 - 15 mmol/L [facility] BUN 31(H) 6 - 25 mg/dL [facility] Creatinine 1.96(H) 0.80 - 1.30 mg/dL [facility] Glucose 114 70 - 199 mg/dL [facility] Comment: Interpretive Data Fasting glucose >/= 126 [...] Calcium 8.4(L) 8.5 - 10.3 mg/dL [facility] Blood 09/12/2024 3:14 AM CDT 09/12/2024 3:34 AM CDT us Emory Santana MD LAB BLOOD ORDERABLES Final Result Performing Organization Address [facility]/ZIP Co de Phone Number [facility] [address] [place] [address] * (ABNORMAL) eGFR (09/11/2024 4:59 AM CDT) [...] Organization Address [facility]/ZIP Co de Phone Number [facility] [address] Department [employer] [place], [place] [id number] * Blood culture Blood (09/11/2024 4:59 AM CDT) Report Final Report: No growth Blood 09/11/2024 4:59 AM CDT 09/11/2024 5:09 AM CDT Narrative [facility] - 09/16/2024 7:01 AM CDT From [...] organism identification may be performed using the [employer] Blood Culture Identification panel. This assay detects microbial DNA in a blood culture broth. This assay has been cleared by the [place] Food and Drug Administration and its performance characteristics have been verified by the [facility]. Interpretive data was last revised on July 11, 2022. Emory Santana MD LAB MICROBIOLOGY - GENERAL ORDERABLES Final Result [facility] [address] Department [place] [address] * Blood culture Blood (09/11/2024 4:59 AM CDT) Report Final Report: No growth Blood 09/11/2024 4:59 AM CDT 09/11/2024 5:09 AM CDT Narrative [facility] - 09/16/2024 7:01 AM CDT Collection->Peripheral [...] organism identification may be performed using the [employer] Blood Culture Identification panel. This assay detects microbial DNA in a blood culture broth. This assay has been cleared by the [place] Food and Drug Administration and its performance characteristics have been verified by the [facility]. Interpretive data was last revised on July 11, 2022. Emory Santana MD LAB MICROBIOLOGY - GENERAL ORDERABLES Final Result Performing Organization Address [facility] Co de Phone Number [facility] [address] [place] [address] * (ABNORMAL) CBC without differential (09/11/2024 4:59 AM CDT) Pathologist [facility] WBC 11.33(H) 3.80 - 9.90 K/cumm Hgb 10.8(L) 13.0 - 17.5 g/dL [facility] Hct 33.2(L) 38.9 - 50.3 % [facility] Plt 138(L) 150 - 400 K/cumm [facility] MPV 9.5 9.1 - 12.3 fL [facility] RBC 3.37(L) 4.30 - 5.80 M/cumm [facility] MCV 98.5(H) 81.3 - 96.4 fL [facility] MCH 32.0 27.1 - 33.3 pg [facility] MCHC 32.5 32.3 - 35.7 g/dL [facility] RDW CV 15.9(H) 11.1 - 14.9 % [facility] RDW SD 57.7(H) 35.7 - 48.1 fL [facility] NRBC abs 0.00 0.00 - 0.01 K/cumm [facility] Blood 09/11/2024 4:59 AM CDT 09/11/2024 5:08 AM CDT Emory Santana MD LAB BLOOD ORDERABLES Final Result Performing Organization Address [facility]/ZIP Co de Phone Number [facility] [address] Department [place] [address] * (ABNORMAL) Basic metabolic panel (09/11/2024 4:59 AM CDT) Pathologist [facility] Sodium 139 135 - 145 mmol/L Potassium, pl 3.7 3.3 - 4.9 mmol/L [facility] Chloride 102 97 - 110 mmol/L [facility] CO2 23 22 - 32 mmol/L [facility] Anion gap 14 2 - 15 mmol/L [facility] BUN 39(H) 6 - 25 mg/dL [facility] Creatinine 2.45(H) 0.80 - 1.30 mg/dL [facility] Glucose 131 70 - 199 mg/dL [facility] Comment: Interpretive Data Fasting glucose >/= 126 [...] 2022. Calcium 8.8 8.5 - 10.3 mg/dL [facility] Blood 09/11/2024 4:59 AM CDT 09/11/2024 5:07 AM CDT us Emory Santana MD LAB BLOOD ORDERABLES Final Result [facility] [address] [place] [address] * (ABNORMAL) Urinalysis reflex to microscopic and culture Urine, indwelling catheter (09/11/2024 4:07AM CDT) Color, ur Yellow Yellow Clarity, ur Clear Clear [facility] Specific gravity, ur 1.013 1.003 - 1.030 [facility] pH, urine 5.5 [facility] Comment: Interpretive Data U rine pH is affected by diet, medications, systemic acid-base disturbances, and renal tubular function. pH may affect urinary stone formation. For example, urine pH below 6.0 may help reduce the tendency for calcium phosphate stones and pH greater than 6.0 may reduce the tendency for uric acid stone formation. Source: [facility] Current Interpretive Data was last revised on 2017 Protein, ur ql Trace Negative [facility] Glucose, ur ql Negative Negative [facility] Ketones, ur Negative Negative [facility] Bilirubin, ur Negative Negative [facility] Blood, ur 1+(A) Negative [facility] Urobilinogen, ur <2.0 <2.0 mg/dL [facility] Nitrite, ur Negative Negative [facility] Leukocyte esterase, ur 2+(A) Negative [facility] UA reflex comment Reflex to microscopic UA will be performed. [facility] Urine, indwelling catheter 09/11/2024 4:07 AM CDT 09/11/2024 4:07 AM CDT us Emory Santana MD LAB MICROBIOLOGY - GENERAL ORDERABLES Final Result Performing Organization Address City/[facility] Co de Phone Number [facility] [address] Department [employer] [place], [place] [id number] * (ABNORMAL) Urinalysis, microscopic only (09/11/2024 4:07 AM CDT) WBC, ur 11-20(A) 0 - 5 /HPF RBC, ur 3-5(A) 0 - 2 /HPF [facility] Culture Reflex Comment Reflex to urine culture will be performed. [facility] Urine, indwelling catheter 09/11/2024 4:07 AM CDT 09/11/2024 4:14 AM CDT us Emory Santana MD LAB URINE ORDERABLES Final Result Performing Organization Address City/[facility]/ZIP Co de Phone Number [facility] [address] Department [employer] [place], [place] [id number] * (ABNORMAL) Urine culture Urine, indwelling catheter (09/11/2024 4:07 AM CDT) Report Final Report: Less than 10,000 colonies/ml of Gram Positive Organism No further workup. (.) Organism GRAM POSITIVE ORGANISM [facility] Urine, indwelling catheter 09/11/2024 4:07 AM CDT 09/11/2024 6:47 AM CDT Narrative [facility] - 09/13/2024 7:16 AM CDT Urine culture reflexed based upon urinalysis results. us Emory Santana MD LAB MICROBIOLOGY - GENERAL ORDERABLES Final Result Performing Organization Address [facility]/ZIP Co de Phone Number [facility] [address] Department [employer] [place], [place] [id number] * (ABNORMAL) eGFR (09/11/2024 2:32 AM CDT) [...] Organization Address [facility]/ZIP Co de Phone Number [facility] [address] Department of [employer] [place], [place] [id number] * (ABNORMAL) Differential, auto (09/11/2024 2:32 AM CDT) Neutrophil abs 12.22(H) 1.50 - 6.50 K/cumm Imm gran abs 0.10 0.00 - 0.10 K/cumm [facility] Lymphocyte abs 0.79(L) 0.80 - 3.30 K/cumm [facility] Monocyte abs 1.12(H) 0.20 - 0.80 K/cumm [facility] Eosinophil abs 0.00 0.00 - 0.50 K/cumm [facility] Basophil abs 0.03 0.00 - 0.10 K/cumm [facility] Neutrophil pct 85.7 % [facility] Comment: Interpretive Data Percent cell count reference ranges are not reported, since discordance with absolute values may lead to misinterpretation of CBC data. Current Interpretive Data was last revised on 2017. Imm gran pct 0.7 % [facility] Comment: Interpretive Data Percent cell count reference ranges are not reported, since discordance with absolute values may lead to misinterpretation of CBC data. Current Interpretive Data was last revised on 2017. Lymphocyte pct 5.5 % [facility] Comment: Interpretive Data Percent cell count reference ranges are not reported, since discordance with absolute values may lead to misinterpretation of CBC data. Current Interpretive Data was last revised on 2017. Monocyte pct 7.9 % [facility] Comment: Interpretive Data Percent cell count reference ranges are not reported, since discordance with absolute values may lead to misinterpretation of CBC data. Current Interpretive Data was last revised on 2017. Eosinophil pct 0.0 % [facility] Comment: Interpretive Data Percent cell count reference ranges are not reported, since discordance with absolute values may lead to misinterpretation of CBC data. Current Interpretive Data was last revised on 2017. Basophil pct 0.2 % [facility] Comment: Interpretive Data Percent cell count reference ranges are not reported, since discordance with absolute values may lead to misinterpretation of CBC data. Current Interpretive Data was last revised on 2017. Blood 09/11/2024 2:32 AM CDT 09/11/2024 2:46 AM CDT Emory Santana MD LAB BLOOD ORDERABLES Final Result Performing Organization Address [facility]/ZIP Co de Phone Number [facility] [address] [employer] [place] [place] [address] * (ABNORMAL) CBC with auto differential (09/11/2024 2:32 AM CDT) [facility] WBC 14.26(H) 3.80 - 9.90 K/cumm Hgb 11.6(L) 13.0 - 17.5 g/dL [facility] Hct 34.8(L) 38.9 - 50.3 % [facility] Plt 171 150 - 400 K/cumm [facility] MPV 9.8 9.1 - 12.3 fL [facility] RBC 3.59(L) 4.30 - 5.80 M/cumm [facility] MCV 96.9(H) 81.3 - 96.4 fL [facility] MCH 32.3 27.1 - 33.3 pg [facility] MCHC 33.3 32.3 - 35.7 g/dL [facility] RDW CV 16.1(H) 11.1 - 14.9 % [facility] RDW SD 57.1(H) 35.7 - 48.1 fL [facility] NRBC abs 0.00 0.00 - 0.01 K/cumm [facility] Blood 09/11/2024 2:32 AM CDT 09/11/2024 2:46 AM CDT Emory Santana MD LAB BLOOD ORDERABLES Final Result Performing Organization Address City/[facility]/ZIP Co de Phone Number [facility] [address] [place] [address] * aPTT (09/11/2024 2:32 AM CDT) Pathologist [facility] aPTT [phone] [...] Organization Address [facility] de Phone Number [facility] [address] [place] [address] * (ABNORMAL) Protime-INR (09/11/2024 2:32 AM CDT) PT 16.4(H) 9.7 - 13.0 sec INR 1.51(H) 0.90 - 1.20 [facility] Comment: Interpretive data Oral anticoagulant therapeutic ranges: Venous thromboembolism prophylaxis or treatment: 2.0-3.0 CARDIOLOGY Standard range: 2.0-3.0 High-intensity range: 2.5-3.5 Refer to indication-specific guidelines for appropriate target ranges for prosthetic heart valve replacement. Current interpretive data was last revised on 2019. Blood 09/11/2024 2:32 AM CDT 09/11/2024 2:46 AM CDT us Emory Santana MD LAB BLOOD ORDERABLES Final Result Performing Organization Address [facility] de Phone Number [facility] [address] Department [place] [place] [address] * Vancomycin level random (09/11/2024 2:32 AM CDT) Vancomycin random <4.0 mcg/mL Comment: Interpretive Data No reference ranges have been established for random drug levels. Current Interpretive Data was last revised on 2020. Blood 09/11/2024 2:32 AM CDT 09/11/2024 2:46 AM CDT us Emory Santana MD LAB BLOOD ORDERABLES Final Result [facility] [address] Department [place] [address] * (ABNORMAL) Comprehensive metabolic panel (09/11/2024 2:32 AM CDT) Sodium 140 135 - 145 mmol/L Potassium, pl 3.7 3.3 - 4.9 mmol/L [facility] Chloride 103 97 - 110 mmol/L [facility] CO2 22 22 - 32 mmol/L [facility] Anion gap 15 2 - 15 mmol/L [facility] BUN 35(H) 6 - 25 mg/dL [facility] Creatinine 2.36(H) 0.80 - 1.30 mg/dL [facility] Glucose 128 70 - 199 mg/dL [facility] Comment: Interpretive Data Fasting glucose >/= 126 [...] 2022. Calcium 8.7 8.5 - 10.3 mg/dL [facility] Bilirubin, total 1.0 0.1 - 1.2 mg/dL [facility] Protein, pl 6.2(L) 6.5 - 8.5 g/dL [facility] Albumin 3.8 3.5 - 5.0 g/dL [facility] Alk phos 63 40 - 130 Units/L [facility] ALT 13 7 - 55 Units/L [facility] AST 15 10 - 50 Units/L [facility] Blood 09/11/2024 2:32 AM CDT 09/11/2024 2:46 AM CDT Emory Santana MD LAB BLOOD ORDERABLES Final Result [facility] [address] Department of Laboratories [place] [phone] * Differential, auto (08/31/2024 8:12 AM CDT) Neutrophil abs 6.0 1.5 - 6.5 K/cumm Comment:Testing performed by : [facility], [address] [place] [phone] Lymphocyte abs 1.0 0.8 - 3.3 K/cumm [facility] Comment:Testing performed by : [facility], [address] [place], [place] [phone] Monocyte abs 0.6 0.2 - 0.8 K/cumm [facility] Comment:Testing performed by : [facility], [address] [place], [place] [id number] Eosinophil abs 0.3 0.0 - 0.5 K/cumm [facility] Comment:Testing performed by : [facility], [address] [place] [phone] Basophil abs 0.1 0.0 - 0.1 K/cumm [facility] Comment:Testing performed by : [facility], [address] [place] [phone] Neutrophil pct 75.2 % [facility] Comment: Interpretive Data Percent cell count reference ranges are not reported, since discordance with absolute values may lead to misinterpretation of CBC data. Current Interpretive Data was last revised on 2017. Testing performed by: [facility], [address] [place] [phone] Lymphocyte pct 12.4 % [facility] Comment: Interpretive Data Percent cell count reference ranges are not reported, since discordance with absolute values may lead to misinterpretation of CBC data. Current Interpretive Data was last revised on 2017. Testing performed by: [facility], [address] [place] [phone] Monocyte pct 7.9 % [facility] Comment: Interpretive Data Percent cell count reference ranges are not reported, since discordance with absolute values may lead to misinterpretation of CBC data. Current Interpretive Data was last revised on 2017. Testing performed by: [facility], [address] [place] [phone] Eosinophil pct 3.9 % [facility] Comment: Interpretive Data Percent cell count reference ranges are not reported, since discordance with absolute values may lead to misinterpretation of CBC data. Current Interpretive Data was last revised on 2017. Testing performed by: [facility], [address] [place] [phone] Basophil pct 0.6 % [facility] Comment: Interpretive Data Percent cell count reference ranges are not reported, since discordance with absolute values may lead to misinterpretation of CBC data. Current Interpretive Data was last revised on 2017. Testing performed by: [facility], [address] [place] [phone] Blood 08/31/2024 8:12 AM CDT 08/31/2024 8:16 AM CDT Hermelindo Butler MD LAB BLOOD ORDER ELANA Final Result MT [facility] [place] [address] * (ABNORMAL) CBC with auto differential (08/31/2024 8:12 AM CDT) WBC 8.0 3.8 - 9.9 K/cumm Comment:Testing performed by : [facility], [address] [place] [phone] Hgb 12.7(L) 13.0 - 17.5 g/dL [place] [facility]TE Comment:Testing performed by : [facility], [address] [place] [phone] Hct 37.8(L) 38.9 - 50.3 % MT [facility]TE Comment:Testing performed by : [facility], [address] [place] [address] Plt 176 150 - 400 K/cumm [facility] Comment:Testing performed by : [facility], [address] [place] [address] MPV 7.7 6.8 - 10.4 fL [facility] Comment:Testing performed by : [facility], [address] [place] [address] RBC 4.07(L) 4.30 - 5.80 M/cumm [facility] Comment:Testing performed by : [facility], [address] [place] [address] MCV 92.8 81.3 - 96.4 fL [facility] Comment:Testing performed by : [facility], [address] [place] [address] MCH 31.2 27.1 - 33.3 pg [facility] Comment:Testing performed by : [facility], [address] [place] [address] MCHC 33.6 32.3 - 35.7 g/dL [facility] Comment:Testing performed by : [facility], [address] [place] [address] RDW CV 16.1(H) 11.1 - 14.9 % [facility] Comment:Testing performed by : [facility], [address] [place] [address] NRBC abs 0.00 0.00 - 0.01 K/cumm [facility] Comment:Testing performed by : [facility], [address] [place] [address] Blood 08/31/2024 8:12 AM CDT 08/31/2024 8:16 AM CDT us Hermelindo Butler MD LAB BLOOD ORDER ELANA Final Result [facility] [place] [address] * Type and screen (08/31/2024 8:12 AM CDT) Pathologist [facility] ABO Rh A Positive Yehuda, indirect Negative [facility] Comment:Patient has previous antibody history Blood 08/31/2024 8:12 AM CDT 08/31/2024 8:25 AM CDT Narrative [facility] - 08/31/2024 9:28 AM CDT Has the patient had Daratumumab or Isatuximab in the past 6 months?->Unknown Hermelindo Butler MD LAB BLOOD BANK TEST ORDERABLES Final Result [facility] [place] [employer] [place] [address] * Immunotyping, serum with interpretation (08/31/2024 8:12 AM CDT) [facility] Immunosubtraction Please see comment Comment: NO PARAPROTEIN DETECTED Reviewed and signed by Ivan Sims MD, PhD 09/01/2024 Blood 08/31/2024 8:12 AM CDT 08/31/2024 9:34 AM CDT Hermelindo Butler MD LAB BLOOD ORDER ELANA Final Result Performing Organization Address City/[facility]/ZIP Co de Phone Number [facility] Department [place] [address] * (ABNORMAL) eGFR (08/31/2024 8:12 AM CDT) [facility] eGFR 45(L) >=60 mL/min/1. 73 m2 [...] ORDER ELANA Final Result MT [facility] [place] [address] * (ABNORMAL) Immunoglobulin free light chains (08/31/2024 8:12 AM CDT) [place]/Lambda ratio [facility] See Comment 0.26 - 1.65 Comment: Unable to calculate exact result. Interpretive Data The Binding Site FreeLite assay procedure was used. Results from different manufacturers or methods may not be comparable. Serial testing should be performed using the same methods and instrumentation. Current Interpretive Data was last revised on 2023. [place] free light chain [facility] <0.06(L) 0.33 - 1.94 mg/dL MT SU[facility]Z Comment: Interpretive Data The Binding Site FreeLite assay procedure was used. Results from different manufacturers or methods may not be comparable. Serial testing should be performed using the same methods and instrumentation. Current Interpretive Data was last revised on 2023. Lambda free light chain [facility] <0.14(L) 0.57 - 2.63 mg/dL MT [facility] Comment: [...] Organization Address [facility] de Phone Number MT [facility] [place] [address] * (ABNORMAL) aPTT (08/31/2024 8:12 AM CDT) [...] Organization Address [facility] de Phone Number [facility] [place] [address] * Protime-INR (08/31/2024 8:12 AM CDT) PT 11.4 9.7 - 13.0 sec INR 1.05 0.90 - 1.20 [facility] Comment: Interpretive data Oral anticoagulant therapeutic [...] Organization Address [facility] de Phone Number [facility] Department [place] [address] * (ABNORMAL) Protein electrophoresis with reflex, serum with interpretation (08/31/2024 8:12 AM CDT) Pathologist [facility] Protein, sr 6.0(L) 6.2 - 8.2 g/dL Albumin 3.9 3.2 - 5.0 g/dL [facility] Alpha-1 globulin 0.4 0.2 - 0.4 g/dL [facility] Alpha-2 globulin 0.7 0.5 - 1.0 g/dL [facility] Beta-1 globulin 0.5 0.3 - 0.6 g/dL [facility] Beta-2 globulin 0.3 0.2 - 0.6 g/dL [facility] Gamma globulin 0.2(L) 0.5 - 1.7 g/dL [facility] SPEP interp Please see comment [facility] Comment: No apparent monoclonal peak Decreased gamma globulins Electrophoretic pattern appears similar to previous sample 08/24/2024 See immunotyping for further information Reviewed and signed by Ivan Sims MD, PhD 09/01/2024 Blood 08/31/2024 8:12 AM CDT 08/31/2024 9:34 AM CDT Hermelindo Butler MD LAB BLOOD ORDER ELANA Final Result Performing Organization Address [facility] Co de Phone Number MT [facility] Department [place] [address] * Magnesium (08/31/2024 8:12 AM CDT) [facility] Magnesium 1.8 1.4 - 2.5 mg/dL Blood 08/31/2024 8:12 AM CDT 08/31/2024 8:20 AM CDT Hermelindo Butler MD LAB BLOOD ORDER ELANA Final Result Performing Organization Address City/[facility] Co de Phone Number [facility] [address] * Lactate dehydrogenase (LD) (08/31/2024 8:12 AM CDT) Lactate dehydrogenase (LDH) 155 100 - 250 Units/L Blood 08/31/2024 8:12 AM CDT 08/31/2024 8:20 AM CDT Hermelindo Butler MD LAB BLOOD ORDER ELANA Final Result Performing Organization Address [facility] de Phone Number [facility] [address] * Gamma GT (08/31/2024 8:12 AM CDT) Pathologist [facility] GGT 27 10 - 50 Units/L Blood 08/31/2024 8:12 AM CDT 08/31/2024 8:20 AM CDT Hermelindo Butler MD LAB BLOOD ORDER ELANA Final Result Performing Organization Address [facility] Co de Phone Number [facility] [place] [employer] [place] [address] * (ABNORMAL) IgA (08/31/2024 8:12 AM CDT) Immunoglobulin A <50(L) 70 - 400 mg/dL Blood 08/31/2024 8:12 AM CDT 08/31/2024 8:38 AM CDT Hermelindo Butler MD LAB BLOOD ORDER ELANA Final Result Performing Organization Address City/[facility]/ZIP Co de Phone Number [facility] [address] * (ABNORMAL) IgM (08/31/2024 8:12 AM CDT) Pathologist [facility] Immunoglobulin M <25(L) 40 - 230 mg/dL Blood 08/31/2024 8:12 AM CDT 08/31/2024 8:38 AM CDT Hermelindo Butler MD LAB BLOOD ORDER ELANA Final Result Performing Organization Address City/[facility]/ZIP Co de Phone Number [facility] Department [place] [address] * (ABNORMAL) IgG (08/31/2024 8:12 AM CDT) [facility] Immunoglobulin G <300(L) 700 - 1,600 mg/dL Blood 08/31/2024 8:12 AM CDT 08/31/2024 8:38 AM CDT Hermelindo Butler MD LAB BLOOD ORDER ELANA Final Result Performing Organization Address City/[facility] de Phone Number [facility] [place] [address] * (ABNORMAL) Comprehensive metabolic panel (08/31/2024 8:12 AM CDT) [facility] Sodium 141 135 - 145 mmol/L Potassium, pl 4.0 3.3 - 4.9 mmol/L [facility] Chloride 103 97 - 110 mmol/L [facility] CO2 29 22 - 32 mmol/L [facility] Anion gap 9 2 - 15 mmol/L [facility] BUN 31(H) 6 - 25 mg/dL [facility] Creatinine 1.61(H) 0.80 - 1.30 mg/dL [facility] Glucose 114 70 - 199 mg/dL [facility] Comment: Interpretive Data Fasting glucose >/= [...] Calcium 9.4 8.5 - 10.3 mg/dL [facility] Bilirubin, total 0.4 0.1 - 1.2 mg/dL [facility] Protein, pl 6.5 6.5 - 8.5 g/dL [facility] Albumin 4.1 3.5 - 5.0 g/dL [facility] Alk phos 65 40 - 130 Units/L [facility] ALT 16 7 - 55 Units/L [facility] AST 15 10 - 50 Units/L [facility] Blood 08/31/2024 8:12 AM CDT 08/31/2024 8:20 AM CDT Hermelindo Butler MD LAB BLOOD ORDER ELANA Final Result [facility] [place] [address] * SCAN - LABS (08/30/2024) us Provider [...] MD LAB BLOOD ORDERABLES Final Result [facility] [place] [address] * (ABNORMAL) Differential, auto (08/26/2024 12:25 AM CDT) Neutrophil abs 5.3 1.5 - 6.5 K/cumm Imm gran abs 0.0 0.0 - 0.1 K/cumm [facility] Lymphocyte abs 0.7(L) 0.8 - 3.3 K/cumm [facility] Monocyte abs 0.6 0.2 - 0.8 K/cumm [facility] Eosinophil abs 0.3 0.0 - 0.5 K/cumm [facility] Basophil abs 0.0 0.0 - 0.1 K/cumm [facility] Neutrophil pct 75.7 % [facility] Comment: Interpretive Data Percent cell count reference ranges are not reported, since discordance with absolute values may lead to misinterpretation of CBC data. Current Interpretive Data was last revised on 2017. Imm gran pct 0.4 % [facility] Comment: Interpretive Data Percent cell count reference ranges are not reported, since discordance with absolute values may lead to misinterpretation of CBC data. Current Interpretive Data was last revised on 2017. Lymphocyte pct 10.4 % [facility] Comment: Interpretive Data Percent cell count reference ranges are not reported, since discordance with absolute values may lead to misinterpretation of CBC data. Current Interpretive Data was last revised on 2017. Monocyte pct 9.0 % [facility] Comment: Interpretive Data Percent cell count reference ranges are not reported, since discordance with absolute values may lead to misinterpretation of CBC data. Current Interpretive Data was last revised on 2017. Eosinophil pct 4.4 % [facility] Comment: Interpretive Data Percent cell count reference ranges are not reported, since discordance with absolute values may lead to misinterpretation of CBC data. Current Interpretive Data was last revised on 2017. Basophil pct 0.1 % [facility] Comment: Interpretive Data Percent cell count reference ranges are not reported, since discordance with absolute values may lead to misinterpretation of CBC data. Current Interpretive Data was last revised on 2017. Blood 08/26/2024 12:2 5 AM CDT 08/26/2024 12:35 AM CDT Karlos Hargrove MD LAB BLOOD ORDERABLES Final Result [facility] [place] [address] * (ABNORMAL) CBC with auto differential (08/26/2024 12:25 AM CDT) WBC 7.0 3.8 - 9.9 K/cumm Hgb 11.8(L) 13.0 - 17.5 g/dL [facility] Hct 35.7(L) 38.9 - 50.3 % [facility] Plt 131(L) 150 - 400 K/cumm [facility] MPV 9.2 9.1 - 12.3 fL [facility] RBC 3.83(L) 4.30 - 5.80 M/cumm [facility] MCV 93.2 81.3 - 96.4 fL [facility] MCH 30.8 27.1 - 33.3 pg [facility] MCHC 33.1 32.3 - 35.7 g/dL [facility] RDW CV 15.4(H) 11.1 - 14.9 % [facility] RDW SD 51.7(H) 35.7 - 48.1 fL [facility] NRBC abs 0.00 0.00 - 0.01 K/cumm [facility] Blood 08/26/2024 12:2 5 AM CDT 08/26/2024 12:35 AM CDT us Karlos Hargrove MD LAB BLOOD ORDERABLES Final Result Performing Organization Address [facility] Co de Phone Number [facility] Department [place] [address] * Type and screen (08/26/2024 12:25 AM CDT) Pathologist [facility] Yehuda, indirect Negative Comment:Patient has previous antibody history ABO Rh A Positive [facility] Blood 08/26/2024 12:2 5 AM CDT 08/26/2024 12:38 AM CDT Narrative [facility] - 08/26/2024 2:23 AM CDT Has the patient had Daratumumab or Isatuximab in the past 6 months?->Unknown us Karlos Hargrove MD LAB BLOOD BANK TEST ORDERA BLES Final Result Performing Organization Address [facility] de Phone Number [facility] [place] [address] * (ABNORMAL) Uric acid (08/26/2024 12:25 AM CDT) Pathologist [facility] Uric acid 8.6(H) 3.0 - 8.0 mg/dL Blood 08/26/2024 12:2 5 AM CDT 08/26/2024 12:35 AM CDT Narrative [facility] - 08/26/2024 1:10 AM CDT Friday and only. Morning draw. . us Karlos Hargrove MD LAB BLOOD ORDERABLES Final Result Performing Organization Address [facility] [place] [address] * Phosphorus (08/26/2024 12:25 AM CDT) Phosphorus, pl 3.6 2.3 - 4.5 mg/dL Blood 08/26/2024 12:2 5 AM CDT 08/26/2024 12:35 AM CDT us Karlos Hargrove MD LAB [place] [address] * Magnesium (08/26/2024 12:25 AM CDT) [facility] Magnesium 1.7 1.4 - 2.5 mg/dL Blood 08/26/2024 12:2 5 AM CDT 08/26/2024 12:35 AM CDT us Karlos Hargrove MD LAB BLOOD ORDERABLES Final Result Performing Organization Address City/[facility]/[place] [address] * Lactate dehydrogenase (LD) (08/26/2024 12:25 AM CDT) [facility] Lactate dehydrogenase (LDH) 167 100 - 250 Units/L Blood 08/26/2024 12:2 5 AM CDT 08/26/2024 12:35 AM CDT Narrative [facility] - 08/26/2024 1:10 AM CDT Friday and only. Morning draw. us Karlos Hargrove MD LAB [place] [address] * (ABNORMAL) Comprehensive metabolic panel (08/26/2024 12:25 AM CDT) Sodium 148(H) 135 - 145 mmol/L Potassium, pl 3.4 3.3 - 4.9 mmol/L [facility] Chloride 108 97 - 110 mmol/L [facility] CO2 28 22 - 32 mmol/L [facility] Anion gap 12 2 - 15 mmol/L [facility] BUN 35(H) 6 - 25 mg/dL [facility] Creatinine 2.27(H) 0.80 - 1.30 mg/dL [facility] Glucose 107 70 - 199 mg/dL [facility] Comment: Interpretive Data Fasting glucose >/= [...] Calcium 8.9 8.5 - 10.3 mg/dL [facility] Bilirubin, total 0.6 0.1 - 1.2 mg/dL [facility] Protein, pl 5.9(L) 6.5 - 8.5 g/dL [facility] Albumin 3.7 3.5 - 5.0 g/dL [facility] Alk phos 60 40 - 130 Units/L [facility] ALT 15 7 - 55 Units/L [facility] AST 13 10 - 50 Units/L [facility] Blood 08/26/2024 12:2 5 AM CDT 08/26/2024 12:35 AM CDT us Karlos Hargrove MD LAB BLOOD ORDERABLES Final Result [facility] [place] [address] * US Vein Duplex Lower Extremity Bilateral Complete (08/25/2024 9:30 AM CDT) Anatomical Region Laterality Modality Vascular Bilateral Ultrasound 08/25/2024 8:37 AM CDT Narrative 08/27/2024 11:10 AM CDT [facility] - Department of Vascular Surgery, Vascular Laboratory [address] [place] [address] Lower Extremity Venous Ultrasound Report Patient Name: BUFFY VALLE B : 1950 (73y 8m) Study Date: 08/25/2024 8:37:41 AM Gender: M Tech: Location: [id number] Ref Provider: OLGA KEITH Quality: Adequate Order Provider: OLGA KEITH PROCEDURES: Vascular Report: Venous Duplex imaging was performed bilaterally in the lower extremities. The common femoral, femoral, popliteal, posterior tibial, peroneal veins were evaluated for patency, spontaneity and phasicity with Doppler, compression and augmentation maneuvers. Great saphenous vein proximal at the junction was evaluated with compression maneuvers. INDICATIONS: Localized edema. FINDINGS: Performing Multi Sensor Operator: Farzana Owens RVT. Bilateral: Venous Doppler signals [...] above. Electronically Signed By: Cesar Cabello MD [facility] [phone] 08/27/2024 10:10:26 AM CDT Procedure Note Cesar Cabello MD - 08/27/2024 [facility] - Department of Vascular Surgery,Vascular Laboratory [address] [place] [address] Lower Extremity Venous Ultrasound Report Patient Name: BUFFY VALLE B : 1950 (73y 8m) Study Date: 08/25/2024 8:37:41 AM Gender: M Tech: Location: [id number] Ref Provider: OLGA KEITH Quality: Adequate Order Provider: OLGA KEITH PROCEDURES: Vascular Report: Venous Duplex imaging was performed bilaterally in the lower extremities.The common femoral, femoral, popliteal, posterior tibial, peroneal veins wereevaluated for patency, spontaneity and phasicity with Doppler, compression and augmentationmaneuvers. Great saphenous vein proximal at the junction was evaluated with compressionmaneuvers. INDICATIONS: Localized edema. FINDINGS: Performing Multi Sensor Operator: Farzana Owens RVT. Bilateral: Venous Doppler signals [...] above. Electronically Signed By: Cesar Cabello MD [facility] [phone] 08/27/2024 10:10:26 AM CDT Olga Keith MD [facility] [place] PROCEDURES Final Result * (ABNORMAL) eGFR (08/25/2024 12:34 AM CDT) [facility] eGFR 24(L) >=60 mL/min/1. 73 m2 Comment: [...] MD LAB BLOOD ORDERABLES Final Result [facility] [place] [address] * (ABNORMAL) Differential, auto (08/25/2024 12:34 AM CDT) Neutrophil abs 5.2 1.5 - 6.5 K/cumm Imm gran abs 0.1 0.0 - 0.1 K/cumm [facility] Lymphocyte abs 0.5(L) 0.8 - 3.3 K/cumm [facility] Monocyte abs 0.5 0.2 - 0.8 K/cumm [facility] Eosinophil abs 0.4 0.0 - 0.5 K/cumm [facility] Basophil abs 0.0 0.0 - 0.1 K/cumm [facility] Neutrophil pct 77.6 % [facility] Comment: Interpretive Data Percent cell count reference ranges are not reported, since discordance with absolute values may lead to misinterpretation of CBC data. Current Interpretive Data was last revised on 2017. Imm gran pct 0.7 % [facility] Comment: Interpretive Data Percent cell count reference ranges are not reported, since discordance with absolute values may lead to misinterpretation of CBC data. Current Interpretive Data was last revised on 2017. Lymphocyte pct 7.9 % [facility] Comment: Interpretive Data Percent cell count reference ranges are not reported, since discordance with absolute values may lead to misinterpretation of CBC data. Current Interpretive Data was last revised on 2017. [facility]ocyte pct 7.5 % [facility] Comment: Interpretive Data Percent cell count reference ranges are not reported, since discordance with absolute values may lead to misinterpretation of CBC data. Current Interpretive Data was last revised on 2017. Eosinophil pct 6.0 % [facility] Comment: Interpretive Data Percent cell count reference ranges are not reported, since discordance with absolute values may lead to misinterpretation of CBC data. Current Interpretive Data was last revised on 2017. Basophil pct 0.3 % [facility] Comment: Interpretive Data Percent cell count reference ranges are not reported, since discordance with absolute values may lead to misinterpretation of CBC data. Current Interpretive Data was last revised on 2017. Blood 08/25/2024 12:3 4 AM CDT 08/25/2024 12:57 AM CDT Karlos Hargrove MD LAB BLOOD ORDERABLES Final Result [facility] [place] [address] * (ABNORMAL) CBC with auto differential (08/25/2024 12:34 AM CDT) WBC 6.7 3.8 - 9.9 K/cumm Hgb 11.2(L) 13.0 - 17.5 g/dL [facility] Hct 33.3(L) 38.9 - 50.3 % [facility] Plt 136(L) 150 - 400 K/cumm [facility] MPV 9.5 9.1 - 12.3 fL [facility] RBC 3.57(L) 4.30 - 5.80 M/cumm [facility] MCV 93.3 81.3 - 96.4 fL [facility] MCH 31.4 27.1 - 33.3 pg [facility] MCHC 33.6 32.3 - 35.7 g/dL [facility] RDW CV 15.3(H) 11.1 - 14.9 % [facility] RDW SD 51.0(H) 35.7 - 48.1 fL [facility] NRBC abs 0.00 0.00 - 0.01 K/cumm [facility] Blood 08/25/2024 12:3 4 AM CDT 08/25/2024 12:57 AM CDT us Karlos Hargrove MD LAB BLOOD ORDERABLES Final Result Performing Organization Address City/[facility] Co de Phone Number [facility] [place] [address] * Phosphorus (08/25/2024 12:34 AM CDT) Phosphorus, pl 3.7 2.3 - 4.5 mg/dL Blood 08/25/2024 12:3 4 AM CDT 08/25/2024 12:55 AM CDT us Karlos Hargrove MD LAB BLOOD ORDERABLES Final Result Performing Organization Address City/[facility] Co de Phone Number [facility] [place] [address] * Magnesium (08/25/2024 12:34 AM CDT) Magnesium 1.9 1.4 - 2.5 mg/dL Blood 08/25/2024 12:3 4 AM CDT 08/25/2024 12:55 AM CDT us Karlos Hargrove MD LAB BLOOD ORDERABLES Final Result Performing Organization Address City/[facility] Co de Phone Number [facility] [place] [address] * (ABNORMAL) Comprehensive metabolic panel (08/25/2024 12:34 AM CDT) Sodium 147(H) 135 - 145 mmol/L Potassium, pl 3.2(L) 3.3 - 4.9 mmol/L [facility] Chloride 109 97 - 110 mmol/L [facility] CO2 26 22 - 32 mmol/L [facility] Anion gap 12 2 - 15 mmol/L [facility] BUN 47(H) 6 - 25 mg/dL [facility] Creatinine 2.74(H) 0.80 - 1.30 mg/dL [facility] Glucose 154 70 - 199 mg/dL [facility] Comment: Interpretive Data Fasting glucose >/= [...] Calcium 8.4(L) 8.5 - 10.3 mg/dL [facility] Bilirubin, total 0.4 0.1 - 1.2 mg/dL [facility] Protein, pl 5.9(L) 6.5 - 8.5 g/dL [facility] Albumin 3.9 3.5 - 5.0 g/dL [facility] Alk phos 61 40 - 130 Units/L [facility] ALT 18 7 - 55 Units/L [facility] AST 17 10 - 50 Units/L [facility] Blood 08/25/2024 12:3 4 AM CDT 08/25/2024 12:55 AM CDT Karlos Hargrove MD LAB BLOOD ORDERABLES Final Result [facility] [place] [address] * Sodium, urine, random (08/24/2024 5:16 PM CDT) Sodium, ur 44 mmol/L Comment: Interpretive Data No reference range established. Current interpretive data was last revised 2018. Urine 08/24/2024 5:16 PM CDT 08/24/2024 5:31 PM CDT Olga Keith MD LAB URINE ORDERABLES Final Resul t Performing Organization Address [facility] de Phone Number [facility] [place] [address] * CT Abdomen Pelvis WO Contrast (08/24/2024 [...] and bilateral femurs. Electronically signed by: Randall rBaun M.D. Olga Keith MD IMG CT PROCEDURES Final Result * (ABNORMAL) Differential, auto (08/24/2024 2:30 AM CDT) Neutrophil abs 4.9 1.5 - 6.5 K/cumm Imm gran abs 0.0 0.0 - 0.1 K/cumm [facility] Lymphocyte abs 0.7(L) 0.8 - 3.3 K/cumm [facility] Monocyte abs 0.6 0.2 - 0.8 K/cumm [facility] Eosinophil abs 0.5 0.0 - 0.5 K/cumm [facility] Basophil abs 0.0 0.0 - 0.1 K/cumm [facility] Neutrophil pct 73.7 % [facility] Comment: Interpretive Data Percent cell count reference ranges are not reported, since discordance with absolute values may lead to misinterpretation of CBC data. Current Interpretive Data was last revised on 2017. Imm gran pct 0.6 % [facility] Comment: Interpretive Data Percent cell count reference ranges are not reported, since discordance with absolute values may lead to misinterpretation of CBC data. Current Interpretive Data was last revised on 2017. Lymphocyte pct 10.0 % [facility] Comment: Interpretive Data Percent cell count reference ranges are not reported, since discordance with absolute values may lead to misinterpretation of CBC data. Current Interpretive Data was last revised on 2017. Monocyte pct 8.3 % [facility] Comment: Interpretive Data Percent cell count reference ranges are not reported, since discordance with absolute values may lead to misinterpretation of CBC data. Current Interpretive Data was last revised on 2017. Eosinophil pct 7.1 % [facility] Comment: Interpretive Data Percent cell count reference ranges are not reported, since discordance with absolute values may lead to misinterpretation of CBC data. Current Interpretive Data was last revised on 2017. Basophil pct 0.3 % [facility] Comment: Interpretive Data Percent cell count reference ranges are not reported, since discordance with absolute values may lead to misinterpretation of CBC data. Current Interpretive Data was last revised on 2017. Blood 08/24/2024 2:30 AM CDT 08/24/2024 1:28 AM CDT Karlos Hargrove MD LAB BLOOD ORDERABLES Final Result [facility] [place] [address] * (ABNORMAL) CBC with auto differential (08/24/2024 2:30 AM CDT) WBC 6.6 3.8 - 9.9 K/cumm Hgb 10.9(L) 13.0 - 17.5 g/dL [facility] Hct 33.1(L) 38.9 - 50.3 % [facility] Plt 130(L) 150 - 400 K/cumm [facility] MPV 10.0 9.1 - 12.3 fL [facility] RBC 3.50(L) 4.30 - 5.80 M/cumm [facility] MCV 94.6 81.3 - 96.4 fL [facility] MCH 31.1 27.1 - 33.3 pg [facility] MCHC 32.9 32.3 - 35.7 g/dL [facility] RDW CV 15.3(H) 11.1 - 14.9 % [facility] RDW SD 51.8(H) 35.7 - 48.1 fL [facility] NRBC abs 0.00 0.00 - 0.01 K/cumm [facility] Blood 08/24/2024 2:30 AM CDT 08/24/2024 1:28 AM CDT Karlos Hargrove MD LAB BLOOD ORDERABLES Final Result Performing Organization Address City/[facility]/ZIP Co de Phone Number [facility] [place] [place] [address] * (ABNORMAL) eGFR (08/24/2024 1:12 AM CDT) [...] BLOOD ORDERABLES Final Result Performing Organization Address City/[facility]/ZIP Co de Phone Number [facility] [place] [address] * aPTT (08/24/2024 1:12 AM CDT) aPTT [...] Organization Address [facility] Co de Phone Number [facility] [place] [place] [address] * Protime-INR (08/24/2024 1:12 AM CDT) PT 11.7 9.7 - 13.0 sec INR 1.08 0.90 - 1.20 [facility] Comment: Interpretive data Oral anticoagulant therapeutic ranges: Venous thromboembolism prophylaxis or treatment: 2.0-3.0 CARDIOLOGY Standard range: 2.0-3.0 High-intensity range: 2.5-3.5 Refer to indication-specific guidelines for appropriate target ranges for prosthetic heart valve replacement. Current interpretive data was last revised on 2019. Blood 08/24/2024 1:12 AM CDT 08/24/2024 1:53 AM CDT Karlos Hargrove MD LAB BLOOD ORDERABLES Final Result Performing Organization Address City/[facility] Co de Phone Number [facility] [place] [address] * Type and screen (08/24/2024 1:12 AM CDT) Yehuda, indirect Negative Comment:Patient has previous antibody history ABO Rh A Positive [facility] Blood 08/24/2024 1:12 AM CDT 08/24/2024 1:36 AM CDT Narrative [facility] - 08/24/2024 2:36 AM CDT Has the patient had Daratumumab or Isatuximab in the past 6 months?->Unknown us Karlos Hargrove MD LAB BLOOD BANK TEST ORDERA BLES Final Result Performing Organization Address City/[facility] Co de Phone Number [facility] [place] [employer] [place] [address] * (ABNORMAL) Uric acid (08/24/2024 1:12 AM CDT) Uric acid 9.5(H) 3.0 - 8.0 mg/dL Blood 08/24/2024 1:12 AM CDT 08/24/2024 1:35 AM CDT Narrative [facility] 08/24/2024 2:47 AM CDT Friday and only. Morning draw. . Karlos Hargrove MD LAB BLOOD ORDERABLES Final Result Performing Organization Address [facility] de Phone Number [facility] [place] [address] * Phosphorus (08/24/2024 1:12 AM CDT) Phosphorus, pl 4.5 2.3 - 4.5 mg/dL Blood 08/24/2024 1:12 AM CDT 08/24/2024 1:35 AM CDT us Karlos Hargrove MD LAB BLOOD ORDERABLES Final Result Performing Organization Address [facility] Co de Phone Number [facility] [place] [address] * Magnesium (08/24/2024 1:12 AM CDT) Magnesium 2.0 1.4 - 2.5 mg/dL Blood 08/24/2024 1:12 AM CDT 08/24/2024 1:35 AM CDT Karlos Hargrove MD LAB BLOOD ORDERABLES Final Result Performing Organization Address City/[facility]/ZIP Co de Phone Number [facility] [place] [address] * Lactate dehydrogenase (LD) (08/24/2024 1:12 AM CDT) [facility] Lactate dehydrogenase (LDH) 226 100 - 250 Units/L Blood 08/24/2024 1:12 AM CDT 08/24/2024 1:35 AM CDT Narrative [facility] - 08/24/2024 2:47 AM CDT Friday and only. Morning draw. Karlos Hargrove MD LAB BLOOD ORDERABLES Final Result Performing Organization Address City/[facility] de Phone Number [facility] [place] [address] * (ABNORMAL) Comprehensive metabolic panel (08/24/2024 1:12 AM CDT) [facility] Sodium 148(H) 135 - 145 mmol/L Potassium, pl 3.6 3.3 - 4.9 mmol/L [facility] Chloride 111(H) 97 - 110 mmol/L [facility] CO2 25 22 - 32 mmol/L [facility] Anion gap 12 2 - 15 mmol/L [facility] BUN 56(H) 6 - 25 mg/dL [facility] Creatinine 3.16(H) 0.80 - 1.30 mg/dL [facility] Glucose 102 70 - 199 mg/dL [facility] Comment: Interpretive Data Fasting glucose >/= [...] Calcium 8.5 8.5 - 10.3 mg/dL [facility] Bilirubin, total 0.4 0.1 - 1.2 mg/dL [facility] Protein, pl 5.7(L) 6.5 - 8.5 g/dL [facility] Albumin 3.6 3.5 - 5.0 g/dL [facility] Alk phos 62 40 - 130 Units/L [facility] ALT 16 7 - 55 Units/L [facility] AST 11 10 - 50 Units/L [facility] Blood 08/24/2024 1:12 AM CDT 08/24/2024 1:35 AM CDT us Karlos Hargrove MD LAB BLOOD ORDERABLES Final Result [facility] [place] [address] * US Kidney Complete (08/23/2024 8:12 PM [...] by: Qian Barnes M.D. us Kinga Jones MECHANICAL SYSTEMS ENGINEER IMG US PROCEDURES Final R esult * (ABNORMAL) Urinalysis reflex to microscopic (08/23/2024 7:01 PM CDT) Color, ur Straw Yellow Clarity, ur Clear Clear [facility] Specific gravity, ur 1.011 1.003 - 1.030 [...] tendency for uric acid stone formation. Source: [employer] Current Interpretive Data was last revised on 2017 Protein, ur ql Negative Negative [facility] Glucose, ur ql Negative Negative [facility] Ketones, ur Negative Negative [facility] Bilirubin, ur Negative Negative [facility] Blood, ur 2+(A) Negative [facility] Urobilinogen, ur <2.0 <2.0 mg/dL [facility] Nitrite, ur Negative Negative [facility] Leukocyte esterase, ur Trace(A) Negative [facility] UA reflex comment Reflex to microscopic UA will be performed. [facility] Urine 08/23/2024 7:0 1 PM CDT 08/23/2024 7:15 PM CDT Kinga Jones MECHANICAL SYSTEMS ENGINEER LAB URINE ORDERABLES Angeles l Result Performing Organization Address [facility] Co de Phone Number [facility] [place] [address] * Protein / creatinine ratio, urine, random (08/23/2024 7:01 PM CDT) Protein, ur, quant 6.4 mg/dL Comment: Interpretive Data No reference range established. Current interpretive data was last revised 2018. Creatinine Ur 74.0 mg/dL [facility] Comment: Interpretive Data No reference range established. Current interpretive data was last revised 2018. Protein/creatinin e ratio 86.5 0.0 - 180.0 mg/g CR [facility] Urine 08/23/2024 7:01 PM CDT 08/23/2024 7:28 PM CDT Kinga Jones MECHANICAL SYSTEMS ENGINEER LAB URINE ORDERABLES [place] l Result Performing Organization Address City/[facility] Co de Phone Number [facility] Department [place] [address] * (ABNORMAL) Urinalysis, microscopic only (08/23/2024 7:01 PM CDT) WBC, ur 0-5 0 - 5 /HPF RBC, ur 6-10(A) 0 - 2 /HPF [facility] Urine 08/23/2024 7:01 PM CDT 08/23/2024 7:15 PM CDT Kinga Jnoes NP LAB URINE ORDERABLES [place] l Result Performing Organization Address [facility] Co de Phone Number [facility] Department [place] [address] * Urine culture Urine, clean voided (08/23/2024 7:01 PM CDT) Report Final Report: Less than 100,000 colonies/mL (clinically insignificant growth based on current clinical standards) Organism (CLINICALLY INSIGNIFICANT GROWTH [facility] Urine, clean voided 08/23/2024 7:01 PM CDT 08/23/2024 8:52 PM CDT Narrative [facility] - 08/25/2024 8:02 AM CDT Indications for Culture:->Other (specify) Other Indication:->elevated creatinine Specimen received in a sterile container. Testing performed by [facility] ([phone]) Kinga Jones NP LAB MICROBIOLOGY - GENERA L ORDERABLES Final Result Performing Organization Address [facility] Co de Phone Number [facility] Department [place] [address] * Immunotyping, serum with interpretation (08/23/2024 6:04 PM CDT) Immunosubtraction Please see comment Comment: NO PARAPROTEIN DETECTED Reviewed and signed by Fernando Nunez MD, PhD 08/24/2024 Blood 08/23/2024 6:04 PM CDT 08/23/2024 6:13 PM CDT Hermelindo Butler MD LAB BLOOD ORDER ELANA Final Result Performing Organization Address [facility] Co de Phone Number [facility] [place] [address] * (ABNORMAL) eGFR (08/23/2024 6:04 PM CDT) Pathologist [facility] eGFR 19(L) >=60 mL/min/1. 73 [...] LAB BLOOD ORDER ELANA Final Result [facility] [place] [address] * (ABNORMAL) Differential, auto (08/23/2024 6:04 PM CDT) Pathologist [facility] Neutrophil abs 6.5 1.5 - 6.5 K/cumm Imm gran abs 0.0 0.0 - 0.1 K/cumm [facility] Lymphocyte abs 0.7(L) 0.8 - 3.3 K/cumm [facility] Monocyte abs 0.6 0.2 - 0.8 K/cumm [facility] Eosinophil abs 0.6(H) 0.0 - 0.5 K/cumm [facility] Basophil abs 0.0 0.0 - 0.1 K/cumm [facility] Neutrophil pct 77.0 % [facility] Comment: Interpretive Data Percent cell count reference ranges are not reported, since discordance with absolute values may lead to misinterpretation of CBC data. Current Interpretive Data was last revised on 2017. Imm gran pct 0.5 % [facility] Comment: Interpretive Data Percent cell count reference ranges are not reported, since discordance with absolute values may lead to misinterpretation of CBC data. Current Interpretive Data was last revised on 2017. Lymphocyte pct 8.3 % [facility] Comment: Interpretive Data Percent cell count reference ranges are not reported, since discordance with absolute values may lead to misinterpretation of CBC data. Current Interpretive Data was last revised on 2017. Monocyte pct 7.3 % [facility] Comment: Interpretive Data Percent cell count reference ranges are not reported, since discordance with absolute values may lead to misinterpretation of CBC data. Current Interpretive Data was last revised on 2017. Eosinophil pct 6.5 % [facility] Comment: Interpretive Data Percent cell count reference ranges are not reported, since discordance with absolute values may lead to misinterpretation of CBC data. Current Interpretive Data was last revised on 2017. Basophil pct 0.4 % [facility] Comment: Interpretive Data Percent cell count reference ranges are not reported, since discordance with absolute values may lead to misinterpretation of CBC data. Current Interpretive Data was last revised on 2017. Blood 08/23/2024 6:04 PM CDT 08/23/2024 6:12 PM CDT us Hermelindo Butler MD LAB BLOOD ORDER ELANA Final Result [facility] [place] [address] * (ABNORMAL) Immunoglobulin free light chains (08/23/2024 6:04 PM CDT) [place]/Lambda ratio [facility] <0.40 0.26 - 1.65 Comment: Interpretive Data The Binding Site FreeLite assay procedure was used. Results from different manufacturers or methods may not be comparable. Serial testing should be performed using the same methods and instrumentation. Current Interpretive Data was last revised on 2023. [place] free light chain [facility] <0.06(L) 0.33 - 1.94 mg/dL [facility] Comment: Interpretive Data The Binding Site FreeLite assay procedure was used. Results from different manufacturers or methods may not be comparable. Serial testing should be performed using the same methods and instrumentation. Current Interpretive Data was last revised on 2023. Lambda free light chain [facility] 0.15(L) 0.57 - 2.63 mg/dL [facility] Comment: Interpretive Data The Binding Site FreeLite assay procedure was used. Results from different manufacturers or methods may not be comparable. Serial testing should be performed using the same methods and instrumentation. Current Interpretive Data was last revised on 2023. Blood 08/23/2024 6:04 PM CDT 08/23/2024 6:12 PM CDT Hermelindo Butler MD LAB BLOOD ORDER ELANA Final Result [facility] [place] [address] * (ABNORMAL) CBC with auto differential (08/23/2024 6:04 PM CDT) Pathologist [facility] WBC 8.5 3.8 - 9.9 K/cumm Hgb 11.8(L) 13.0 - 17.5 g/dL [facility] Hct 35.6(L) 38.9 - 50.3 % [facility] Plt 131(L) 150 - 400 K/cumm [facility] MPV 9.8 9.1 - 12.3 fL [facility] RBC 3.78(L) 4.30 - 5.80 M/cumm [facility] MCV 94.2 81.3 - 96.4 fL [facility] MCH 31.2 27.1 - 33.3 pg [facility] MCHC 33.1 32.3 - 35.7 g/dL [facility] RDW CV 15.2(H) 11.1 - 14.9 % [facility] RDW SD 51.2(H) 35.7 - 48.1 fL [facility] NRBC abs 0.00 0.00 - 0.01 K/cumm [facility] Blood 08/23/2024 6:04 PM CDT 08/23/2024 6:12 PM CDT Hermelindo Butler MD LAB BLOOD ORDER ELANA Final Result [facility] Department [place] [address] * (ABNORMAL) Uric acid (08/23/2024 6:04 PM CDT) [facility] Uric acid 9.5(H) 3.0 - 8.0 mg/dL Blood 08/23/2024 6:04 PM CDT 08/23/2024 6:13 PM CDT Hermelindo Butler MD LAB BLOOD ORDER ELANA Final Result Performing Organization Address City/[facility] Co de Phone Number [facility] Department [place] [address] * (ABNORMAL) Protein electrophoresis with reflex, serum with interpretation (08/23/2024 6:04 PM CDT) Protein, sr 5.9(L) 6.2 - 8.2 g/dL Albumin 3.9 3.2 - 5.0 g/dL [facility] Alpha-1 globulin 0.4 0.2 - 0.4 g/dL [facility] Alpha-2 globulin 0.7 0.5 - 1.0 g/dL [facility] Beta-1 globulin 0.4 0.3 - 0.6 g/dL [facility] Beta-2 globulin 0.3 0.2 - 0.6 g/dL [facility] Gamma globulin 0.2(L) 0.5 - 1.7 g/dL [facility] SPEP interp Please see comment [facility] Comment: No apparent monoclonal peak Decreased gamma globulins Electrophoretic pattern appears similar to previous sample 08/04/24 See immunotyping for further information Reviewed and signed by Fernando Nunez MD, PhD 08/24/2024 Blood 08/23/2024 6:04 PM CDT 08/23/2024 6:13 PM CDT Hermelindo Butler MD LAB BLOOD ORDER ELANA Final Result [facility] [address] * (ABNORMAL) Phosphorus (08/23/2024 6:04 PM CDT) Phosphorus, pl 4.7(H) 2.3 - 4.5 mg/dL Blood 08/23/2024 6:04 PM CDT 08/23/2024 6:13 PM CDT Hermelindo Butler MD LAB BLOOD ORDER ELANA Final Result Performing Organization Address City/[facility] Co de Phone Number [facility] [place] [address] * Magnesium (08/23/2024 6:04 PM CDT) Magnesium 1.9 1.4 - 2.5 mg/dL Blood 08/23/2024 6:04 PM CDT 08/23/2024 6:13 PM CDT Hermelindo Butler MD LAB BLOOD ORDER ELANA Final Result Performing Organization Address City/[facility]/ZIP Co de Phone Number [facility] [place] [address] * Lactate dehydrogenase (LD) (08/23/2024 6:04 PM CDT) Pathologist [facility] Lactate dehydrogenase (LDH) 198 100 - 250 Units/L Blood 08/23/2024 6:04 PM CDT 08/23/2024 6:13 PM CDT Hermelindo Butler MD LAB BLOOD ORDER ELANA Final Result Performing Organization Address City/[facility] Co de Phone Number [facility] Department [place] [address] * (ABNORMAL) IgA (08/23/2024 6:04 PM CDT) Pathologist [facility] Immunoglobulin A <50(L) 70 - 400 mg/dL Blood 08/23/2024 6:04 PM CDT 08/23/2024 6:13 PM CDT Hermelindo Butler MD LAB BLOOD ORDER ELANA Final Result Performing Organization Address [facility] de Phone Number [facility] Department [place] [address] * (ABNORMAL) IgM (08/23/2024 6:04 PM CDT) Pathologist [facility] Immunoglobulin M <25(L) 40 - 230 mg/dL Blood 08/23/2024 6:04 PM CDT 08/23/2024 6:13 PM CDT Hermelindo Butler MD LAB BLOOD ORDER ELANA Final Result Performing Organization Address [facility] Co de Phone Number [facility] [address] * (ABNORMAL) IgG (08/23/2024 6:04 PM CDT) Pathologist [facility] Immunoglobulin G <300(L) 700 - 1,600 mg/dL Blood 08/23/2024 6:04 PM CDT 08/23/2024 6:13 PM CDT Hermelindo Butler MD LAB BLOOD ORDER ELANA Final Result [facility] [place] [address] * (ABNORMAL) Comprehensive metabolic panel (08/23/2024 6:04 PM CDT) Sodium 146(H) 135 - 145 mmol/L Potassium, pl 3.8 3.3 - 4.9 mmol/L [facility] Chloride 107 97 - 110 mmol/L [facility] CO2 26 22 - 32 mmol/L [facility] Anion gap 13 2 - 15 mmol/L [facility] BUN 58(H) 6 - 25 mg/dL [facility] Creatinine 3.37(H) 0.80 - 1.30 mg/dL [facility] Glucose 89 70 - 199 mg/dL [facility] Comment: Interpretive Data Fasting glucose >/= [...] Calcium 8.9 8.5 - 10.3 mg/dL [facility] Bilirubin, total 0.4 0.1 - 1.2 mg/dL [facility] Protein, pl 6.2(L) 6.5 - 8.5 g/dL [facility] Albumin 4.0 3.5 - 5.0 g/dL [facility] Alk phos 68 40 - 130 Units/L [facility] ALT 16 7 - 55 Units/L [facility] AST 12 10 - 50 Units/L [facility] Blood 08/23/2024 6:04 PM CDT 08/23/2024 6:13 PM CDT us Hermelindo Butler MD LAB BLOOD ORDER ELANA Final Result [facility] [place] [address] * SCAN - LABS (08/20/2024) us Provider Scanning Final Result * SCAN - LABS (08/10/2024) us Provider Scanning Final Result * US Kidney Complete (08/06/2024 2:42 PM SULKY DRIVER) Anatomical Region Laterality Modality Kidney N/A Ultrasound 08/06/2024 3:27 PM SULKY DRIVER Impressions 08/06/2024 3:27 PM SULKY DRIVER 1. Mild nephromegaly with mild to moderate hydronephrosis bilaterally. 2. Incomplete bladder emptying with post void bladder residual of 397 mL. Electronically signed by: Dylan Tinajero M.D. Narrative 08/06/2024 3:27 PM SULKY DRIVER EXAMINATION: COMPLETE RENAL SONOGRAM HISTORY: Rising [...] by: Dylan Tinajero M.D. Hermelindo Butler MD G US PROCEDUR ES Final Result * (ABNORMAL) Urinalysis reflex to microscopic (08/06/2024 9:19 AM SULKY DRIVER) Color, ur Straw Yellow Clarity, ur Clear Clear [facility] Specific gravity, ur 1.013 1.003 - 1.030 [facility] pH, urine 5.5 [facility] Comment: Interpretive Data U rine pH is affected by diet, medications, systemic acid-base disturbances, and renal tubular function. pH may affect urinary stone formation. For example, urine pH below 6.0 may help reduce the tendency for calcium phosphate stones and pH greater than 6.0 may reduce the tendency for uric acid stone formation. Source: [facility] Current Interpretive Data was last revised on 2017 Protein, ur ql Negative Negative [facility] Glucose, ur ql Negative Negative [facility] Ketones, ur Negative Negative [facility] Bilirubin, ur Negative Negative [facility] Blood, ur 3+(A) Negative [facility] Urobilinogen, ur <2.0 <2.0 mg/dL [facility] Nitrite, ur Negative Negative [facility] Leukocyte esterase, ur Trace(A) [facility] UA reflex comment Reflex to microscopic UA will be performed. [facility] Urine 08/06/2024 9:19 AM SULKY DRIVER 08/06/2024 9:19 AM SULKY DRIVER Lyndsey Fagan NP LAB URINE ORDERABLES Angeles nicole Result [facility] Department [place] [address] * Protein / creatinine ratio, urine, random (08/06/2024 9:19 AM SULKY DRIVER) Pathologist [facility] Protein, ur, quant 7.9 mg/dL Comment: Interpretive Data No reference range established. Current interpretive data was last revised 2018. Creatinine Ur 77.4 mg/dL [facility] Comment: Interpretive Data No reference range established. Current interpretive data was last revised 2018. Protein/creatinin e ratio 102.1 0.0 - 180.0 mg/g CR [facility] Urine 08/06/2024 9:19 AM SULKY DRIVER 08/06/2024 9:41 AM SULKY DRIVER Lyndsey Fagan NP LAB URINE ORDERABLES Angeles l Result Performing Organization Address [facility] Co de Phone Number [facility] [place] [address] * (ABNORMAL) Urinalysis, microscopic only (08/06/2024 9:19 AM SULKY DRIVER) [facility] WBC, ur 6-10(A) 0 - 5 /HPF RBC, ur 21-50(A) 0 - 2 /HPF [facility] Bacteria, ur Trace(A) [facility] Mucous, ur Present(A) [facility] Urine 08/06/2024 9:19 AM SULKY DRIVER 08/06/2024 9:19 AM SULKY DRIVER Lyndsey Fagan NP LAB URINE ORDERABLES Angeles l Result Performing Organization Address City/[facility] Co de Phone Number [facility] [place] [address] * (ABNORMAL) eGFR (08/06/2024 7:43 AM SULKY DRIVER) [facility] eGFR 31(L) >=60 mL/min/1. 73 m2 [...] last reviewed 2021. Blood 08/06/2024 7:43 AM SULKY DRIVER 08/06/2024 7:52 AM SULKY DRIVER Hermelindo Butler MD LAB BLOOD ORDER ELANA Final Result [facility] [place] [address] * (ABNORMAL) Differential, auto (08/06/2024 7:43 AM SULKY DRIVER) Neutrophil abs 5.4 1.5 - 6.5 K/cumm Comment:Testing performed by : [facility], [address] [place] [phone] Lymphocyte abs 0.8 0.8 - 3.3 K/cumm [facility] Comment:Testing performed by : [facility], [address] [place] [phone] Monocyte abs 0.5 0.2 - 0.8 K/cumm MT [facility] Comment:Testing performed by : [facility], [address] [place] [phone] Eosinophil abs 0.7(H) 0.0 - 0.5 K/cumm [facility] Comment:Testing performed by : [facility], [address] [place] [phone] Basophil abs 0.0 0.0 - 0.1 K/cumm [facility] Comment:Testing performed by : [facility], [address] [place] [phone] Neutrophil pct 72.4 % [facility] Comment: Interpretive Data Percent cell count reference ranges are not reported, since discordance with absolute values may lead to misinterpretation of CBC data. Current Interpretive Data was last revised on 2017. Testing performed by: [facility], [address] [place] [phone] Lymphocyte pct 10.4 % [facility] Comment: Interpretive Data Percent cell count reference ranges are not reported, since discordance with absolute values may lead to misinterpretation of CBC data. Current Interpretive Data was last revised on 2017. Testing performed by: [facility], [address] [place] [phone] Monocyte pct 7.3 % [facility] Comment: Interpretive Data Percent cell count reference ranges are not reported, since discordance with absolute values may lead to misinterpretation of CBC data. Current Interpretive Data was last revised on 2017. Testing performed by: [facility], [address] [place] [phone] Eosinophil pct 9.4 % [facility] Comment: Interpretive Data Percent cell count reference ranges are not reported, since discordance with absolute values may lead to misinterpretation of CBC data. Current Interpretive Data was last revised on 2017. Testing performed by: [facility], [address] [place] [phone] Basophil pct 0.5 % [facility] Comment: Interpretive Data Percent cell count reference ranges are not reported, since discordance with absolute values may lead to misinterpretation of CBC data. Current Interpretive Data was last revised on 2017. Testing performed by: [facility], [address] [place] [phone] Blood 08/06/2024 7:43 AM SULKY DRIVER 08/06/2024 7:51 AM SULKY DRIVER us Hermelindo Butler MD LAB BLOOD ORDER ELANA Final Result [facility] [place] [address] * (ABNORMAL) CBC with auto differential (08/06/2024 7:43 AM SULKY DRIVER) WBC 7.5 3.8 - 9.9 K/cumm Comment:Testing performed by : [facility], [address] [place] [address] Hgb 13.7 13.0 - 17.5 g/dL [facility] Comment:Testing performed by : [facility], [address] [place] [address] Hct 40.6 38.9 - 50.3 % [facility] Comment:Testing performed by : [facility], [address] [place] [address] Plt 169 150 - 400 K/cumm MT [facility] Comment:Testing performed by : [facility], [address] [place] [address] MPV 7.5 6.8 - 10.4 fL [facility] Comment:Testing performed by : [facility], [address] [place] [address] RBC 4.37 4.30 - 5.80 M/cumm MT [facility] Comment:Testing performed by : [facility], [address] [place] [address] MCV 92.7 81.3 - 96.4 fL [facility] Comment:Testing performed by : [facility], [address] [place] [address] MCH 31.3 27.1 - 33.3 pg [facility] Comment:Testing performed by : [facility], [address] [place] [address] MCHC 33.8 32.3 - 35.7 g/dL [facility] Comment:Testing performed by : [facility], [address] [place] [phone] RDW CV 16.5(H) 11.1 - 14.9 % [facility] Comment:Testing performed by : [facility], [address] [place] [phone] NRBC abs 0.00 0.00 - 0.01 K/cumm [facility] Comment:Testing performed by : [facility], [address] [place] [phone] Blood 08/06/2024 7:43 AM SULKY DRIVER 08/06/2024 7:51 AM SULKY DRIVER Hermelindo Butler MD LAB BLOOD ORDER ELANA Final Result Performing Organization Address [facility] de Phone Number [facility] Department [place] [address] * (ABNORMAL) PSA diagnostic (08/06/2024 7:43 AM SULKY DRIVER) PSA-Total 6.28(H) <=6.20 ng/mL Comment: Interpretive [...] last revised 21. Blood 08/06/2024 7:43 AM SULKY DRIVER 08/06/2024 7:52 AM SULKY DRIVER Hermelindo Butler MD LAB BLOOD ORDER ELANA Final Result Performing Organization Address [facility] Co de Phone Number [facility] Department [place] [address] * Lactate dehydrogenase (LD) (08/06/2024 7:43 AM SULKY DRIVER) Lactate dehydrogenase (LDH) 161 100 - 250 Units/L Blood 08/06/2024 7:43 AM SULKY DRIVER 08/06/2024 7:52 AM SULKY DRIVER Hermelindo Butler MD LAB BLOOD ORDER ELANA Final Result [facility] Department [place] [address] * (ABNORMAL) Lipid panel (08/06/2024 7:43 AM SULKY DRIVER) Cholesterol 128 30 - 199 mg/dL [...] revised on 2018. Triglycerides 149 <=149 mg/dL [facility] Comment: Interpretive Data Ages < or [...] revised on 2018. HDL 38(L) >=40 mg/dL [facility] Comment: Interpretive Data Ages < or [...] on 2018. LDL, calculated 64 <=129 mg/dL [facility] Comment: Interpretive Data Ages < or [...] on 2024. Non-HDL Cholesterol 90 mg/dL [facility] Comment: Interpretive Data Ages < or [...] revised on 2018. Chol/HDL ratio 3 [facility] Blood 08/06/2024 7:43 AM SULKY DRIVER 08/06/2024 7:52 AM SULKY DRIVER us Hermelindo Butler MD LAB BLOOD ORDER ELANA Final Result [facility] Department [place] [address] * (ABNORMAL) Comprehensive metabolic panel (08/06/2024 7:43 AM SULKY DRIVER) Sodium 145 135 - 145 mmol/L Potassium, pl 4.2 3.3 - 4.9 mmol/L [facility] Chloride 108 97 - 110 mmol/L [facility] CO2 30 22 - 32 mmol/L [facility] Anion gap 7 2 - 15 mmol/L [facility] BUN 51(H) 6 - 25 mg/dL [facility] Creatinine 2.21(H) 0.80 - 1.30 mg/dL [facility] Glucose 113 70 - 199 mg/dL [facility] Comment: Interpretive Data Fasting glucose >/= [...] Calcium 9.2 8.5 - 10.3 mg/dL [facility] Bilirubin, total 0.5 0.1 - 1.2 mg/dL [facility] Protein, pl 6.2(L) 6.5 - 8.5 g/dL [facility] Albumin 4.1 3.5 - 5.0 g/dL [facility] Alk phos 61 40 - 130 Units/L [facility] ALT 15 7 - 55 Units/L [facility] AST 16 10 - 50 Units/L [facility] Blood 08/06/2024 7:43 AM SULKY DRIVER 08/06/2024 7:52 AM SULKY DRIVER Hermelindo Butler MD LAB BLOOD ORDER ELANA Final Result Performing Organization Address [facility] de Phone Number [facility] [place] [address] * aPTT (08/03/2024 9:21 AM SULKY DRIVER) aPTT 31 28 - 38 sec Comment: Interpretive Data Heparin therapeutic range: 66.0 - 100.0 seconds. Range based on correlation with therapeutic heparin activity range of 0.3 - 0.7 Units/mL. Current interpretive data was last revised on 2023. Blood 08/03/2024 9:21 AM SULKY DRIVER 08/03/2024 9:47 AM SULKY DRIVER Hermelindo Butler MD LAB BLOOD ORDER ELANA Final Result Performing Organization Address [facility] de Phone Number [facility] [place] [address] * Protime-INR (08/03/2024 9:21 AM SULKY DRIVER) PT 11.5 9.7 - 13.0 sec INR 1.06 0.90 - 1.20 [facility] Comment: Interpretive data Oral anticoagulant therapeutic ranges: Venous thromboembolism prophylaxis or treatment: 2.0-3.0 CARDIOLOGY Standard range: 2.0-3.0 High-intensity range: 2.5-3.5 Refer to indication-specific guidelines for appropriate target ranges for prosthetic heart valve replacement. Current interpretive data was last revised on 2019. Blood 08/03/2024 9:21 AM SULKY DRIVER 08/03/2024 9:47 AM SULKY DRIVER us Hermelindo Butler MD LAB BLOOD ORDER ELANA Final Result Performing Organization Address [facility] de Phone Number [facility] [place] [address] * Immunotyping, serum with interpretation (08/03/2024 7:40 AM SULKY DRIVER) Pathologist [facility] Immunosubtraction Please see comment Comment: NO PARAPROTEIN DETECTED Reviewed and signed by Hermelindo Mcnulty MD 08/04/2024 Blood 08/03/2024 7:40 AM SULKY DRIVER 08/03/2024 8:24 AM SULKY DRIVER us Hermelindo Butler MD LAB BLOOD ORDER ELANA Final Result [facility] [place] [address] * (ABNORMAL) eGFR (08/03/2024 7:40 AM SULKY DRIVER) [facility] eGFR 37(L) >=60 mL/min/1. 73 m2 [...] last reviewed 2021. Blood 08/03/2024 7:40 AM SULKY DRIVER 08/03/2024 7:49 AM SULKY DRIVER Hermelindo Butler MD LAB BLOOD ORDER ELANA Final Result MT [facility] Department [place] [address] * (ABNORMAL) Differential, auto (08/03/2024 7:40 AM SULKY DRIVER) Neutrophil abs 5.6 1.5 - 6.5 K/cumm Comment:Testing performed by : [facility], [address] [place] [phone] Lymphocyte abs 0.9 0.8 - 3.3 K/cumm [facility] Comment:Testing performed by : [facility], [address] [place] [phone] Monocyte abs 0.6 0.2 - 0.8 K/cumm [facility] Comment:Testing performed by : [facility], [address] [place] [phone] Eosinophil abs 0.8(H) 0.0 - 0.5 K/cumm [facility] Comment:Testing performed by : [facility], [address] [place] [phone] Basophil abs 0.0 0.0 - 0.1 K/cumm [facility] Comment:Testing performed by : [facility], [address] [place] [phone] Neutrophil pct 70.4 % [facility] Comment: Interpretive Data Percent cell count reference ranges are not reported, since discordance with absolute values may lead to misinterpretation of CBC data. Current Interpretive Data was last revised on 2017. Testing performed by: [facility], [address] [place] [phone] Lymphocyte pct 11.2 % [facility] Comment: Interpretive Data Percent cell count reference ranges are not reported, since discordance with absolute values may lead to misinterpretation of CBC data. Current Interpretive Data was last revised on 2017. Testing performed by: [facility], [address] [place] [phone] Monocyte pct 7.7 % [facility] Comment: Interpretive Data Percent cell count reference ranges are not reported, since discordance with absolute values may lead to misinterpretation of CBC data. Current Interpretive Data was last revised on 2017. Testing performed by: [facility], [address] [place] [phone] Eosinophil pct 10.1 % [facility] Comment: Interpretive Data Percent cell count reference ranges are not reported, since discordance with absolute values may lead to misinterpretation of CBC data. Current Interpretive Data was last revised on 2017. Testing performed by: [facility], [address] [place] [phone] Basophil pct 0.6 % [facility] Comment: Interpretive Data Percent cell count reference ranges are not reported, since discordance with absolute values may lead to misinterpretation of CBC data. Current Interpretive Data was last revised on 2017. Testing performed by: [facility], [address] [place] [phone] Blood 08/03/2024 7:40 AM SULKY DRIVER 08/03/2024 7:47 AM SULKY DRIVER Hermelindo Butler MD LAB BLOOD ORDER ELANA Final Result [facility] [place] [address] * (ABNORMAL) Immunoglobulin free light chains (08/03/2024 7:40 AM SULKY DRIVER) [place]/Lambda ratio [facility] See Comment 0.26 - 1.65 Comment: Unable to calculate exact result. Interpretive Data The Binding Site FreeLite assay procedure was used. Results from different manufacturers or methods may not be comparable. Serial testing should be performed using the same methods and instrumentation. Current Interpretive Data was last revised on 2023. [place] free light chain [facility] <0.06(L) 0.33 - 1.94 mg/dL MT [...] revised on 2023. Blood 08/03/2024 7:40 AM SULKY DRIVER 08/03/2024 8:24 AM SULKY DRIVER us Hermelindo Butler MD LAB BLOOD ORDER ELANA Final Result [facility] [place] [address] * (ABNORMAL) CBC with auto differential (08/03/2024 7:40 AM SULKY DRIVER) WBC 7.9 3.8 - 9.9 K/cumm Comment:Testing performed by : [facility], [address] [place] [address] Hgb 13.7 13.0 - 17.5 g/dL [facility] Comment:Testing performed by : [facility], [address] [place] [address] Hct 41.5 38.9 - 50.3 % [facility] Comment:Testing performed by : [facility], [address] [place] [address] Plt 163 150 - 400 K/cumm [facility] Comment:Testing performed by : [facility], [address] [place] [address] MPV 7.8 6.8 - 10.4 fL [facility] Comment:Testing performed by : [facility], [address] [place] [address] RBC 4.50 4.30 - 5.80 M/cumm [facility] Comment:Testing performed by : [facility], [address] [place] [phone] MCV 92.1 81.3 - 96.4 fL [facility] Comment:Testing performed by : [facility], [address] [place], [place] [phone] MCH 30.4 27.1 - 33.3 pg [facility] Comment:Testing performed by : [facility], [address] [place], [place] [phone] MCHC 33.0 32.3 - 35.7 g/dL MT [facility] Comment:Testing performed by : [facility], [address] [place], [place] [phone] RDW CV 16.6(H) 11.1 - 14.9 % [facility] Comment:Testing performed by : [facility], [address] [place], [place] [phone] NRBC abs 0.00 0.00 - 0.01 K/cumm MT [facility] Comment:Testing performed by : [facility], [address] [place] [address] Blood 08/03/2024 7:40 AM SULKY DRIVER 08/03/2024 7:47 AM SULKY DRIVER Hermelindo Butler MD LAB BLOOD ORDER ELANA Final Result [facility] [place] [address] * (ABNORMAL) Protein electrophoresis with reflex, serum with interpretation (08/03/2024 7:40 AM SULKY DRIVER) Protein, sr 5.7(L) 6.2 - 8.2 g/dL Albumin 3.8 3.2 - 5.0 g/dL [facility] Alpha-1 globulin 0.3 0.2 - 0.4 g/dL [facility] Alpha-2 globulin 0.6 0.5 - 1.0 g/dL [facility] Beta-1 globulin 0.4 0.3 - 0.6 g/dL [facility] Beta-2 globulin 0.3 0.2 - 0.6 g/dL [facility] Gamma globulin 0.2(L) 0.5 - 1.7 g/dL [facility] SPEP interp Please see comment [facility] Comment: No apparent monoclonal peak Decreased gamma globulins Electrophoretic pattern appears similar to previous sample 07/14/24 *See immunotyping for further information Reviewed and signed by Hermelindo Mcnulty MD 08/04/2024 Blood 08/03/2024 7:40 AM SULKY DRIVER 08/03/2024 8:24 AM SULKY DRIVER Hermelindo Butler MD LAB BLOOD ORDER ELANA Final Result Performing Organization Address City/[facility] Co de Phone Number [facility] [address] * Magnesium (08/03/2024 7:40 AM SULKY DRIVER) Pathologist [facility] Magnesium 2.2 1.4 - 2.5 mg/dL Blood 08/03/2024 7:40 AM SULKY DRIVER 08/03/2024 9:36 AM SULKY DRIVER Hermelindo Butler MD LAB BLOOD ORDER ELANA Final Result Performing Organization Address [facility] Co de Phone Number [facility] [place] [employer] [place] [address] * Lactate dehydrogenase (LD) (08/03/2024 7:40 AM SULKY DRIVER) Lactate dehydrogenase (LDH) 172 100 - 250 Units/L Blood 08/03/2024 7:40 AM SULKY DRIVER 08/03/2024 7:49 AM SULKY DRIVER us Hermelindo Butler MD LAB BLOOD ORDER ELANA Final Result Performing Organization Address [facility] Co de Phone Number [facility] [address] * (ABNORMAL) Hemoglobin A1c (08/03/2024 7:40 AM SULKY DRIVER) Hgb A1C 5.8(H) 4.0 - 5.6 % Estimated Average Glucose 120 mg/dL [facility] Comment: The ADA recommends reporting an estimated Average Glucose (eAG) with all Hemoglobin A1c results using the equation derived from a study of 507 normal and diabetic adults. Minority populations were underrepresented and children were not included. (Diabetes Care 2020; 43(S1): S66-S76). The eAG is not equivalent to a fasting glucose. Blood 08/03/2024 7:40 AM SULKY DRIVER 08/03/2024 7:49 AM SULKY DRIVER Lyndsey Fagan NP LAB BLOOD ORDERABLES Angeles l Result Performing Organization Address [facility] de Phone Number [facility] [place] [address] * Gamma GT (08/03/2024 7:40 AM SULKY DRIVER) Pathologist [facility] GGT 23 10 - 50 Units/L Blood 08/03/2024 7:40 AM SULKY DRIVER 08/03/2024 9:36 AM SULKY DRIVER Hermelindo Butler MD LAB BLOOD ORDER ELANA Final Result Performing Organization Address [facility] de Phone Number [facility] [place] [address] * (ABNORMAL) IgA (08/03/2024 7:40 AM SULKY DRIVER) Immunoglobulin A <50(L) 70 - 400 mg/dL Blood 08/03/2024 7:40 AM SULKY DRIVER 08/03/2024 8:09 AM SULKY DRIVER Hermelindo Butler MD LAB BLOOD ORDER ELANA Final Result Performing Organization Address [facility]/ZIP Co de Phone Number [facility] [place] [address] * (ABNORMAL) IgM (08/03/2024 7:40 AM SULKY DRIVER) [facility] Immunoglobulin M <25(L) 40 - 230 mg/dL Blood 08/03/2024 7:40 AM SULKY DRIVER 08/03/2024 8:09 AM SULKY DRIVER Hermelindo Butler MD LAB BLOOD ORDER ELANA Final Result Performing Organization Address City/State/[facility] Co de Phone Number [facility] [address] * (ABNORMAL) IgG (08/03/2024 7:40 AM SULKY DRIVER) [facility] Immunoglobulin G <300(L) 700 - 1,600 mg/dL Blood 08/03/2024 7:40 AM SULKY DRIVER 08/03/2024 8:09 AM SULKY DRIVER Hermelindo Butler MD LAB BLOOD ORDER ELANA Final Result Performing Organization Address City/State/[facility] Co de Phone Number [facility] [place] [address] * (ABNORMAL) Comprehensive metabolic panel (08/03/2024 7:40 AM SULKY DRIVER) [facility] Sodium 141 135 - 145 mmol/L Potassium, pl 4.0 3.3 - 4.9 mmol/L [facility] Chloride 104 97 - 110 mmol/L [facility] CO2 30 22 - 32 mmol/L [facility] Anion gap 7 2 - 15 mmol/L [facility] BUN 47(H) 6 - 25 mg/dL [facility] Creatinine 1.92(H) 0.80 - 1.30 mg/dL [facility] Glucose 116 70 - 199 mg/dL [facility] Comment: Interpretive Data Fasting glucose >/= [...] Calcium 9.2 8.5 - 10.3 mg/dL [facility] Bilirubin, total 0.7 0.1 - 1.2 mg/dL [facility] Protein, pl 6.2(L) 6.5 - 8.5 g/dL [facility] Albumin 3.9 3.5 - 5.0 g/dL [facility] Alk phos 63 40 - 130 Units/L [facility] ALT 15 7 - 55 Units/L [facility] AST 17 10 - 50 Units/L [facility] Blood 08/03/2024 7:40 AM SULKY DRIVER 08/03/2024 7:49 AM SULKY DRIVER Hermelindo Butler MD LAB BLOOD ORDER ELANA Final Result [facility] [place] [address] * (ABNORMAL) Urinalysis reflex to microscopic and culture Urine, clean voided (08/03/2024 7:30 AM SULKY DRIVER) Color, ur Straw Yellow Clarity, ur Clear Clear [facility] Specific gravity, ur 1.012 1.003 - 1.030 [facility] pH, urine 5.5 [facility] Comment: Interpretive Data U rine pH is affected by diet, medications, systemic acid-base disturbances, and renal tubular function. pH may affect urinary stone formation. For example, urine pH below 6.0 may help reduce the tendency for calcium phosphate stones and pH greater than 6.0 may reduce the tendency for uric acid stone formation. Source: [facility] [employer] Current Interpretive Data was last revised on 2017 Protein, ur ql Negative Negative [facility] Glucose, ur ql Negative Negative [facility] Ketones, ur Negative Negative [facility] Bilirubin, ur Negative Negative [facility] Blood, ur 2+(A) Negative [facility] Urobilinogen, ur <2.0 <2.0 mg/dL [facility] Nitrite, ur Negative Negative [facility] Leukocyte esterase, ur Negative [facility] UA reflex comment Reflex to microscopic UA will be performed. [facility] Urine, clean voided 08/03/2024 7:30 AM SULKY DRIVER 08/03/2024 7:30 AM SULKY DRIVER Lyndsey Fagan NP LAB MICROBIOLOGY - GENERA L ORDERABLES Final Result Performing Organization Address [facility] Co de Phone Number [facility] [place] [address] * (ABNORMAL) Urinalysis, microscopic only (08/03/2024 7:30 AM SULKY DRIVER) WBC, ur 6-10(A) 0 - 5 /HPF RBC, ur 11-20(A) 0 - 2 /HPF [facility] Epithelial cells, squamous, ur 1-5 0 - 5 /HPF [facility] Bacteria, ur Trace(A) [facility] Culture Reflex Comment Reflex conditions for urine culture (WBC >10) not met. [facility] Urine, clean voided 08/03/2024 7:30 AM SULKY DRIVER 08/03/2024 7:30 AM SULKY DRIVER Lyndsey Fagan NP LAB URINE ORDERABLES [place] l Result Performing Organization Address [facility] Co de Phone Number [facility] [place] [address] * Urine culture Urine, clean voided (08/03/2024 7:30 AM SULKY DRIVER) Report Final Report: No growth Urine, clean voided 08/03/2024 7:30 AM SULKY DRIVER 08/03/2024 9:59 AM SULKY DRIVER Narrative [facility] - 08/04/2024 11:14 AM SULKY DRIVER Testing performed by [facility] ([phone]) Hermelindo Butler MD LAB MICROBIOLOG Y - GENERAL ORDERABLES Final Result [facility] [place] [address] * Hepatitis C antibody (10/16/2021 9:50 AM CDT) Hep C Ab Nonreactive Nonreactive [facility] Comment:Antibodies to HCV no t detected. Does NOT exclude the possibility of recent exposure to HCV. Blood 10/16/2021 9:50 AM CDT 10/16/2021 11:22 AM CDT Hermelindo dupree MD LAB MICROBIOLOGY - GENERAL ORDERABLES Edited Result - Final Performing Organization Address City/[facility] [place] [address] from Last 3 Months or Most Recently Relevant to Health Maintenance Insurance MEDICARE [facility] Address: [address] [phone] [employer] MEDICARE [facility] Address: [address] [place] [phone] AET SENIOR SUPPLEMENT MEDICARE [employer] Advance Directives For more information, please contact: [phone] Documents on File Type Date Recorded Patient Noc Engineer Expl anation ADVANCE DIRECTIVE 11/29/2017 11:05 AM FOX R OF OB/GYN NURSE ADVANCE DIRECTIVE 11/12/2017 3:59 PM POWER OF OB/GYN NURSE * Full Code (Latest Code Status on [...] 2:28 PM 05/31/2021 2:39 PM Care Teams Log Raft Worker Relationship Specialty Start Date End Date Jatin Gamble MD [address] [place] [address] PCP - General 10/07/16 Hermelindo Butler MD [address] [place] [address] Medical Oncologist/Hematologi Medical Oncology 12/02/17 Roberto Rojo MD [address] [place] [address] [facility] 12/02/17 Jatin Gamble MD [address] [place] [address] Referring Physician Internal Medicine 12/02/17 Lyndsey Fagan NP [address] [place] [address] Nurse Practitioner Medical Oncology 08/03/20 Erlin Servin MD [address] [place] [address] Consulting Physician Otolaryngology 10/04/22 [place] [address] [place] [address] Consulting Physician Urology 05/28/23 Salvador Norris MD [id number] [place] [address] Consulting Physician Infectious Diseases 09/15/24 Miscellaneous, Not In File 09/15/24
--- OUTSIDE RECORDS SUMMARY | 2024-10-30 07:35 | XMS_ITS | Clinical Summary ---
Author Organization [facility] Address [address] [place] [address] Care Team Providers Care Seasoning Sprayer Name Role Phone Jatin Gamble MD Primary Care Provider [phone] Hermelindo Butler MD Unavailable Roberto Rojo MD Unavailable Jatin Gamble MD Unavailable Lyndsey Fagan NP Unavailable Erlin Servin MD Unavailable [phone] Julian Valdez MD Unavailable Salvador Norris MD [...] Inpatient Care Coordination Overview Diagnosis MM Floor [address] Treatment Plan Clinical Trial [id number] [facility] Reason for Admission JOHN Transplant/IEC Planning BMT/IEC [...] Medical Assistants Post-Discharge Follow-Up Living Situation/Distance from [place], [place] (45 min) Caregiver Self, Lab/Transfusion Frequency Phone: Fax: Venous Access & Care implanted vascular device Local Oncologist Contact Phone: Fax: Post-Discharge Office Visit (H30) [facility] 08/31 Miscellaneous Notes: Problem Noted Date Diagnosed [...] is a risk of orbital injury and SUTURE WINDER HAND injury which could result in blindness or [...] this. Assessment & Plan (07/09/2022 7:42 PM [employer]OPE[employer]ER [employer] MECH[employer]IC): I talked with him quite a [...] weeks. Assessment & Plan (05/26/2022 4:16 PM [employer] MECH[employer]IC): He does have pretty significant sinusitis [...] day. Assessment & Plan (05/26/2022 4:17 PM [employer]OPE[employer] MECH[employer]IC): It is very possible that his cough could be due to sinusitis also. Hopefully that will continue to improve as we treat. He understands. Immunocompromised 11/13/2021 Multiple myeloma not having achieved remission 0 10/28/2021 Cancer Staging:Clinical stage from 10/16/2021:RISS Stage II(Vpwd-8-vwgxsjikooyas (mg/L): 3.7, Albumin (g/dL): 4.2, ISS: Stage [...] and Dexamethasone in June 2021 Clinical trial [id number] initiated on 10/29/21; C46D1 08/03/24. BMT following [...] he got a TTE on 10/19 at [place] however unclear why not currently in the system - May need to repeat TTE prior to treatment if results unavailable - Continue OI ppx with acyclovir 400mg BID - Begin trial [id number], a Bispecific Antibody Targeting BCMA treatment - [...] he got a TTE on 10/19 at [place] however unclear why not currently in the system - May need to repeat TTE prior to treatment if results unavailable - Continue OI ppx with acyclovir 400mg BID - Begin trial [id number], a Bispecific Antibody Targeting BCMA treatment - [...] BID Assessment & Plan (05/31/2021 10:51 AM [employer]OPELLER [employer] MECH[employer]IC): Continue home pepcid, asx Renal mass 05/30/2021 Assessment & Plan (05/31/2021 10:51 AM [employer]OPE[employer] MECH[employer]IC): Admitted for observation after L renal [...] 07/17/2023 Assessment & Plan (05/31/2021 10:52 AM [employer]OPELLER [employer] MECH[employer]IC): Follows with oncology on daratumumab monotherapy [...] blood in urine Follow up pathology from xlcdiccib-xqw-imynvyvl high-grade papillary urothelial carcinoma (grade 2) --follow [...] blood in urine Follow up pathology from asyhpldmp-yeh-ohjbtqxy high-grade papillary urothelial carcinoma (grade 2) --follow [...] supplementation Assessment & Plan (05/31/2021 10:51 AM [employer]OPELLER [employer] MECH[employer]IC): Stable on home losartan, nebivolol, triamterene-HCTZ [...] Type Department Care Team Description 10/25/2024 Telephone [facility]row Transplant [address] [place] [address] 6 [place] [address] Lyndsey Fagan NP 10/25/2024 Orders Only [facility] Transplant [address] [place] [address] Floor 6 [place] [address] Lyndsey Fagan NP 10/20/2024 10:10 AM CDT Office Visit [facility] Nephrology [address] [facility] 5th [place] [address] [place] [address] JOHN (acute kidney injury) (Primary Dx); Multiple myeloma not having achieved remission (HCC); Primary hypertension; Obstructive uropathy; Stage 3 chronic kidney disease, unspecified whether stage 3a or 3b CKD (HCC) 10/19/2024 7:30 AM CDT Infusion [facility] - Infusion [address] [facility] Floor 5 [place] [address] Hypogammaglobulinemia (Primary Dx); Multiple myeloma, remission status unspecified (HCC); Multiple myeloma not having achieved remission (HCC) 10/19/2024 6:30 AM CDT Clinical Support [facility] - Lab Collection [facility] Floor 5 [place] [address] Multiple myeloma, remission status unspecified (HCC) 10/14/2024 Orders Only [facility] Transplant [address] [place] [address] Floor 6 [place] [address] Hermelindo Rich MD Multiple myeloma, remission status unspecified (HCC) (Primary Dx) 10/10/2024 6:31 AM CDT - 10/10/2024 11:59 PM CDT Hospital Encounter [facility] [place] [address] Elevated prostate specific antigen (PSA) Discharge Disposition: Discharge to home or self care 10/07/2024 Orders Only [facility]row Transplant [facility] Floor 6 [place] [phone] Hermelindo Rich MD 10/05/2024 Orders Only [facility] ON[facility] Scanning, Provider 10/05/2024 Orders Only [facility] Transplant [address] [facility] Floor 6 [place] [phone] Hermelindo Rich MD Multiple myeloma, remission status unspecified (HCC) (Primary Dx) 09/28/2024 9:30 AM CDT Infusion [facility] - Infusion [address] [facility] Floor 6 [place] [address] Multiple myeloma in relapse (HCC) (Primary Dx); Multiple myeloma in remission (HCC) 09/28/2024 8:30 AM CDT Office Visit [facility] Transplant [facility] 6 [place] [phone] Lyndsey Fagan NP Multiple myeloma, remission status unspecified (HCC) (Primary Dx); Multiple myeloma in remission (HCC); Multiple myeloma in relapse (HCC) 09/28/2024 7:30 AM CDT Clinical Support [facility] - Lab Collection [address] [facility] Floor 6 [place] [address] Multiple myeloma in remission (HCC); Multiple myeloma in relapse (HCC); Multiple myeloma, remission status unspecified (HCC) 09/15/2024 Orders Only [facility] 1 [place] [address] Preeti Wayne RPh 09/11/2024 1:43 AM CDT - 09/15/2024 5:22 PM CDT Hospital Encounter [facility] [address] [place] [phone] Emory Santana MD McMinn, Harrison Charles, MD Madej, Adam Benjamin, DO Oliguria (Primary Dx); Bacteremia Discharge Disposition: Discharge to home, home health skilled care 09/10/2024 Orders Only Urology Yesika Capone PA Elevated prostate specific antigen (PSA) (Primary Dx) 09/07/2024 Orders Only [facility]row Transplant [facility] 6 [place] [address] Hermelindo Rich MD 09/06/2024 Orders Only [facility] Transplant [address] [place] [address] Lyndsey Fagan NP 08/31/2024 10:00 AM CDT Infusion [facility] - Infusion [address] [facility] Floor 6 [place] [address] Multiple myeloma in relapse (HCC) (Primary Dx); Multiple myeloma in remission (HCC) 08/31/2024 9:00 AM CDT Office Visit [facility] Transplant [address] [place] [address] 6 [place] [phone] Hermelindo Rich MD Multiple myeloma in relapse (HCC) (Primary Dx); Multiple myeloma in remission (HCC) 08/31/2024 8:45 AM CDT Clinical Support [facility] - Lab Collection [facility] 6 [place] [address] Multiple myeloma in relapse (HCC); Multiple myeloma not having achieved remission (HCC); Multiple myeloma, remission status unspecified (HCC) 08/31/2024 8:15 AM CDT Clinical Support [facility] Oncology Lab [facility] 6 [place] [address] Multiple myeloma not having achieved remission (HCC); Multiple myeloma in remission (HCC) 08/30/2024 Orders Only [facility] Scanning, Provider 08/27/2024 Documentation Nephrology Ani Anne LCSW 08/27/2024 Orders Only [facility] Transplant [address] [facility] 6 [place] [phone] Hermelindo Rich MD Multiple myeloma not having achieved remission (HCC) (Primary Dx); JOHN (acute kidney injury) 08/25/2024 6:50 AM CDT Ancillary Procedure [facility] Vascular Lab IP 1 [facility] [address] [place] [address] 08/23/2024 11:13 PM CDT - 08/26/2024 4:50 PM CDT Hospital Encounter [address] [address] Hermelindo Rich MD Qapaja, Thabet J.M., MD JOHN (acute kidney injury) (Primary Dx) Discharge Disposition: Discharge to home or self care 08/23/2024 7:10 PM CDT - 08/23/2024 11:59 PM CDT Hospital Encounter [facility] Radiology 1 [place] [address] Discharge Disposition: Discharge to home or self care 08/23/2024 5:24 PM CDT - 08/23/2024 11:59 PM CDT Hospital Encounter [facility] ([facility]) [address] [place] [address] Hermelindo Rich MD Elevated serum creatinine (Primary Dx); Multiple myeloma, remission status unspecified (HCC) Discharge Disposition: Discharge to home or self care 08/23/2024 Orders Only [address] [address] Hermelindo Rich MD 08/23/2024 Orders Only [facility] Transplant [address] [phone] Hermelindo Rich MD Multiple myeloma, remission status unspecified (HCC) (Primary Dx) 08/20/2024 Orders Only [facility] Scanning, Provider 08/10/2024 Orders Only [facility] Scanning, Provider 08/06/2024 1:45 PM [employer]CH[employer]IC Clinical Support [facility] - Lab Collection [address] Floor 6 [place] [address] 08/06/2024 1:00 PM [employer]CH[employer]IC - 08/06/2024 11:59 PM [employer]OPELLER [employer]CH[employer]IC Hospital Encounter [facility] Radiology [address] [facility] [place] [address] Multiple myeloma, remission status unspecified (HCC) Discharge Disposition: Discharge to home or self care 08/06/2024 8:00 AM [employer]OPE[employer]ER [employer] MECH[employer]IC Infusion [facility] - Infusion [address] Floor 6 [place] [address] Multiple myeloma not having achieved remission (HCC) (Primary Dx); Hypogammaglobulinemia 08/06/2024 7:15 AM [employer]OPELLER [employer] MECH[employer]IC Clinical Support [facility] - Lab Collection [address] [facility] Floor 6 [place] [address] Multiple myeloma in relapse (HCC) (Primary Dx); Multiple myeloma, remission status unspecified (HCC); JOHN (acute kidney injury) 08/06/2024 Telephone [facility] Transplant [facility] [address] [address] Lyndsey Fagan NP 08/06/2024 Orders Only [facility]row Transplant [address] [place] [phone] Lyndsey Fagan NP Multiple myeloma, remission status unspecified (HCC) (Primary Dx) 08/06/2024 Orders Only [facility] Transplant [address] [place] [phone] Lyndsey Fagan NP JOHN (acute kidney injury) (Primary Dx) 08/06/2024 Orders Only [facility] Bone Marrow Transplant [address] [place] [phone] Hermelindo Rich MD Multiple myeloma, remission status unspecified (HCC) (Primary Dx) 08/03/2024 9:30 AM [employer]OPELLER [employer] MECH[employer]IC Infusion [facility] - Infusion [address] [facility] Floor 6 [place] [address] Multiple myeloma in relapse (HCC) (Primary Dx); Multiple myeloma in remission (HCC) 08/03/2024 8:30 AM [employer]OPELLER [employer]CH[employer]IC Office Visit [facility] Bone Marrow Transplant [facility] [address] [phone] Hermelindo Rich MD Multiple myeloma, remission status unspecified (HCC) (Primary Dx); Multiple myeloma in remission (HCC); Multiple myeloma in relapse (HCC) 08/03/2024 7:30 AM [employer]OPELLER [employer] MECHANIC Clinical Support [facility] - Lab Collection [address] [facility] 6 [place] [address] Multiple myeloma in remission (HCC); Multiple myeloma, remission status unspecified (HCC); Multiple myeloma in relapse (HCC) 08/03/2024 Orders Only [facility]row Transplant [address] [place] [phone] Hermelindo Rich MD 08/03/2024 Orders Only [facility]row Transplant [address] [place] [phone] Hermelindo Rich MD 08/03/2024 Orders Only [facility]row Transplant [address] [place] [phone] Hemrelindo Rich MD 08/02/2024 Telephone [facility] Bone Marrow Transplant [address] [place] [address] Lyndsey Fagan NP from Last 3 Months Immunizations Immunization Administration [...] chemotherapy has chemo every 21 days at [facility] tx 09/24/22 Cough patient states D [...] drink = 0.6 oz pur e alcohol) [facility] Utilities Answer Date Recorded In the past 12 months has [employer], gas, oil, or water company threatened [...] often do you attend chur ch or yazidism services? More than 4 times per year [...] any time in the past 12 [facility], were you homeless or living in a senior living (including now)? No 09/13/2024 Personal Safety Answer Date Recorded Have you ever been in or are you currently in a harmful physical or emotional relationship or is someone making you feel afraid or unsafe? Denies 09/11/2024 Sex and Gender Information Value Date Recorded Sex Assigned at Not on file Legal Sex 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 [employer]CH[employer] Gender Identity Not on file Sexual [...] Description 12/16/2024 10:15 AM CDT Hospital Encounter [facility] Operating Room [address] [place] [phone] [place] [address]JIVAR [address] [place] [address] 12/16/2024 10:15 AM CDT - 12/16/2024 12:15 PM CDT Surgery [facility] Operating Room [address] [place] [phone] [place] [address] [place] [address] Cystoscopy, Bilateral Retrograde Pyelograms Scheduled Procedures Name Priority Associated Diagnoses Date/Ti in CYSTOSCOPY RETROGRADE PYELOGRAM - INSERTION URETERAL STENT Enlarged prostate with urinary obstruction Bladder stone 12/16/2024 10:15 AM CDT CYSTOSCOPY HOLMIUM LASER LITHOTRIPSY BLADDER STONE Enlarged prostate with urinary obstruction Bladder stone 12/16/2024 10:15 AM CDT CYSTOSCOPY/TRANSURETHRAL RESECTION OF PROSTATE Enlarged prostate with urinary obstruction Bladder stone 12/16/2024 10:15 AM CDT Health Maintenance Due Date Last Done Comments [...] history exists Medical Devices Implanted Type Area Radiator Core Tester Device Identifier Shelf Expiration Date Model [...] AM CDT Multiple myeloma in relapse (HCC) DC INSJ NON-TUNNELED CENTRAL VENOUS CATH AGE 7 [...] Read Routine (OP Routine) 08/06/2024 2:42 PM [employer]CH[employer]IC Multiple myeloma, remission status unspecified (HCC) URINALYSIS, MICROSCOPIC ONLY Routine 08/06/2024 9:19 AM [employer]OPELLER [employer]CH[employer]IC JOHN (acute kidney injury) PROTEIN / CREATININE RATIO, URINE, RANDOM Routine 08/06/2024 9:19 AM [employer]CH[employer]IC JOHN (acute kidney injury) URINALYSIS AND REFLEX TO MICROSCOPIC Routine 08/06/2024 9:19 AM [employer]OPE[employer]ER [employer]CH[employer]IC JOHN (acute kidney injury) EGFR Routine 08/06/2024 7:43 AM [employer]OPELLER [employer] MECH[employer]IC Multiple myeloma, remission status unspecified (HCC) DIFFERENTIAL AUTO Routine 08/06/2024 7:4 3 AM [employer]OPE[employer]CH[employer]IC Multiple myeloma, remission status unspecified (HCC) LACTATE DEHYDROGENASE Routine 08/06/2024 7:43 AM [employer]OPELLER [employer] MECH[employer]IC Multiple myeloma, remission status unspecified (HCC) CBC WITH AUTO DIFFERENTIAL Routine 08/06/2024 7:43 AM [employer]OPE[employer]ER [employer] MECH[employer]IC Multiple myeloma, remission status unspecified (HCC) COMPREHENSIVE METABOLIC PANEL Routine 08/06/2024 7:43 AM [employer]OPE[employer]ER [employer]CH[employer]IC Multiple myeloma, remission status unspecified (HCC) LIPID PANEL Routine 08/06/2024 7:43 AM [employer]OPELLER [employer]CH[employer]IC Multiple myeloma, remission status unspecified (HCC) PSA DIAGNOSTIC Routine 08/06/2024 7:43 AM [employer]OPELLER [employer] MECH[employer]IC Multiple myeloma, remission status unspecified (HCC) PROTIME-INR STAT 08/03/2024 9:21 AM [employer]OPE[employer]ER [employer] MECH[employer]IC Multiple myeloma in relapse (HCC) APTT STAT 08/03/2024 9:21 AM [employer]OPELLER [employer] MECH[employer]IC Multiple myeloma in relapse (HCC) MAGNESIUM STAT 08/03/2024 7:40 AM [employer]OPELLER [employer] MECH[employer]IC Multiple myeloma in relapse (HCC) GAMMA GT STAT 08/03/2024 7:40 AM [employer]OPELLER [employer] MECH[employer]IC Multiple myeloma in relapse (HCC) EGFR Routine 08/03/2024 7:40 AM [employer]OPELLER [employer]CH[employer]IC Multiple myeloma, remission status unspecified (HCC) DIFFERENTIAL AUTO Routine 08/03/2024 7:4 0 AM [employer]ER [employer] MECH[employer]IC Multiple myeloma, remission status unspecified (HCC) CBC WITH AUTO DIFFERENTIAL Routine 08/03/2024 7:40 AM [employer]OPELLER [employer] MECH[employer]IC Multiple myeloma, remission status unspecified (HCC) COMPREHENSIVE METABOLIC PANEL Routine 08/03/2024 7:40 AM [employer]OPELLER [employer] MECH[employer]IC Multiple myeloma, remission status unspecified (HCC) IGA Routine 08/03/2024 7:40 AM [employer]OPELLER [employer] MECH[employer]IC Multiple myeloma, remission status unspecified (HCC) IGG Routine 08/03/2024 7:40 AM [employer]OPELLER [employer] MECH[employer]IC Multiple myeloma, remission status unspecified (HCC) IGM Routine 08/03/2024 7:40 AM [employer]OPELLER [employer] MECH[employer]IC Multiple myeloma, remission status unspecified (HCC) IMMUNOGLOBULIN FREE LIGHT CHAINS Routine 08/03/2024 7:40 AM [employer]OPELLER [employer]CH[employer]IC Multiple myeloma, remission status unspecified (HCC) LACTATE DEHYDROGENASE Routine 08/03/2024 7:40 AM [employer]OPELLER [employer] MECH[employer]IC Multiple myeloma, remission status unspecified (HCC) PROTEIN ELECTROPHORESIS, WITH REFLEX, SERUM Routine 08/03/2024 7:40 AM [employer]OPELLER [employer] MECH[employer]IC Multiple myeloma, remission status unspecified (HCC) IMMUNOTYPING Routine 08/03/2024 7:40 AM [employer]OPELLER [employer] MECHANIC Multiple myeloma, remission status unspecified (HCC) HEMOGLOBIN A1C Routine 08/03/2024 7:40 AM [employer]OPELLER [employer] MECH[employer]IC Multiple myeloma, remission status unspecified (HCC) URINALYSIS, MICROSCOPIC ONLY Routine 08/03/2024 7:30 AM [employer]OPELLER [employer]CH[employer]IC Multiple myeloma, remission status unspecified (HCC) URINE CULTURE Routine 08/03/2024 7:30 AM [employer]OPELLER [employer] MECHANIC URINALYSIS AND REFLEX TO MICROSCOPIC AND CULTURE Routine 08/03/2024 7:30 AM [employer]OPELLER [employer] MECH[employer]IC Multiple myeloma, remission status unspecified (HCC) HEPATITIS [...] ORDER ELANA Final Result Performing Organization Address City/[facility] Co de Phone Number MT [facility] Department [place] [address] * (ABNORMAL) eGFR (10/19/2024 7:50 AM CDT) [...] ORDER ELANA Final Result Performing Organization Address City/[facility]/ZIP Co de Phone Number [facility] [place] [address] * Differential, auto (10/19/2024 7:50 AM CDT) Neutrophil abs 5.71 1.50 - 6.50 K/cumm Comment:Testing performed by : [facility], [address] [place], [place] [id number] Lymphocyte abs 0.94 0.80 - 3.30 K/cumm [facility] Comment:Testing performed by : [facility], [address] [place], [place] [id number] Monocyte abs 0.44 0.20 - 0.80 K/cumm [facility] Comment:Testing performed by : [facility], [address] [place] [address] Eosinophil abs 0.35 0.00 - 0.50 K/cumm [facility] Comment:Testing performed by : [facility], [address] [place], [place] [id number] Basophil abs 0.06 0.00 - 0.10 K/cumm [facility] Comment:Testing performed by : [facility], [address] [place], [place] [id number] Neutrophil pct 76.2 % [facility] Comment: Interpretive Data Percent cell count reference ranges are not reported, since discordance with absolute values may lead to misinterpretation of CBC data. Current Interpretive Data was last revised on 2017. Testing performed by: [facility], [address] [place] [address] Lymphocyte pct 12.6 % [facility] Comment: Interpretive Data Percent cell count reference ranges are not reported, since discordance with absolute values may lead to misinterpretation of CBC data. Current Interpretive Data was last revised on 2017. Testing performed by: [facility], [address] [place] [address] Monocyte pct 5.9 % [facility] Comment: Interpretive Data Percent cell count reference ranges are not reported, since discordance with absolute values may lead to misinterpretation of CBC data. Current Interpretive Data was last revised on 2017. Testing performed by: [facility], [address] [place] [address] Eosinophil pct 4.6 % [facility] Comment: Interpretive Data Percent cell count reference ranges are not reported, since discordance with absolute values may lead to misinterpretation of CBC data. Current Interpretive Data was last revised on 2017. Testing performed by: [facility], [address] [place] [phone] Basophil pct 0.8 % MT SUAREZ Comment: Interpretive Data Percent cell count reference ranges are not reported, since discordance with absolute values may lead to misinterpretation of CBC data. Current Interpretive Data was last revised on 2017. Testing performed by: [facility], [address] [place] [phone] Blood 10/19/2024 7:50 AM CDT 10/19/2024 7:57 AM CDT Hermelindo Butler MD LAB BLOOD ORDER ELANA Final Result MT SU[facility] Department [place] [address] * (ABNORMAL) Immunoglobulin free light chains (10/19/2024 7:50 AM CDT) Rock/Lambda ratio [facility] See Comment 0.26 - 1.65 Comment: Unable to calculate exact result. Interpretive Data The Binding Site FreeLite assay procedure was used. Results from different manufacturers or methods may not be comparable. Serial testing should be performed using the same methods and instrumentation. Current Interpretive Data was last revised on 2023. Rock free light chain [facility] <0.06(L) 0.33 - [...] MD LAB BLOOD ORDER ELANA Final Result [facility] Department [place] [address] * (ABNORMAL) CBC with auto differential (10/19/2024 7:50 AM CDT) WBC 7.49 3.80 - 9.90 K/cumm Comment:Testing performed by : [facility], [address] [place] [address] Hgb 12.1(L) 13.0 - 17.5 g/dL [facility] Comment:Testing performed by : [facility], [address] [place] [address] Hct 34.9(L) 38.9 - 50.3 % [facility] Comment:Testing performed by : [facility], [address] [place] [address] Plt 263 150 - 400 K/cumm [facility] Comment:Testing performed by : [facility], [address] [place] [address] MPV 7.0 6.8 - 10.4 fL [facility]ERNER [facility] Comment:Testing performed by : [facility], [address] [place] [address] RBC 3.76(L) 4.30 - 5.80 M/cumm CERNER [facility]J Comment:Testing performed by : [facility], [address] [place] [address] MCV 92.8 81.3 - 96.4 fL CERNER [facility]J Comment:Testing performed by : [facility], [address] [place] [address] MCH 32.0 27.1 - 33.3 pg MT SUAREZ Comment:Testing performed by : [facility], [address] [place] [address] MCHC 34.5 32.3 - 35.7 g/dL MT SUAREZ Comment:Testing performed by : [facility], [address] [place] [address] RDW CV 15.2(H) 11.1 - 14.9 % MT SUAREZ Comment:Testing performed by : [facility], [address] [place] [address] NRBC abs 0.00 0.00 - 0.01 K/cumm MT SUAREZ Comment:Testing performed by : [facility], [address] [place], [place] [id number] Blood 10/19/2024 7:50 AM CDT 10/19/2024 7:57 AM CDT Hermelindo Butler MD LAB BLOOD ORDER ELANA Final Result [facility] [place] [address] * (ABNORMAL) Protein electrophoresis with reflex, serum with interpretation (10/19/2024 7:50 AM CDT) Protein, sr 5.9(L) 6.2 - 8.2 g/dL Albumin 3.8 3.2 - 5.0 g/dL [facility] Alpha-1 globulin 0.4 0.2 - 0.4 g/dL [facility] Alpha-2 globulin 0.8 0.5 - 1.0 g/dL [facility] Beta-1 globulin 0.5 0.3 - 0.6 g/dL [facility] Beta-2 globulin 0.3 0.2 - 0.6 g/dL [facility] Gamma globulin 0.1(L) 0.5 - 1.7 g/dL [facility] SPEP interp Please see comment [facility] Comment: No apparent monoclonal peak Decreased gamma globulins Electrophoretic pattern appears similar to previous sample 09-29-24 See immunotyping for further information Reviewed and signed by Rufino Huff MD, PhD 10/20/2024 Blood 10/19/2024 7:50 AM CDT 10/19/2024 8:54 AM CDT Hermelindo Butler MD LAB BLOOD ORDER ELANA Final Result Performing Organization Address City/[facility] Co de Phone Number [facility] [place] [address] * Lactate dehydrogenase (LD) (10/19/2024 7:50 AM CDT) Pathologist [facility] Lactate dehydrogenase (LDH) 145 100 - 250 Units/L Blood 10/19/2024 7:50 AM CDT 10/19/2024 7:57 AM CDT Hermelindo Butler MD LAB BLOOD ORDER ELANA Final Result Performing Organization Address [facility] de Phone Number [facility] [place] [address] * (ABNORMAL) IgA (10/19/2024 7:50 AM CDT) Pathologist [facility] Immunoglobulin A <50(L) 70 - 400 mg/dL Blood 10/19/2024 7:50 AM CDT 10/19/2024 9:00 AM CDT Hermelindo Butler MD LAB BLOOD ORDER ELANA Final Result Performing Organization Address City/[facility] de Phone Number [facility] [place] [address] * (ABNORMAL) IgM (10/19/2024 7:50 AM CDT) Immunoglobulin M <25(L) 40 - 230 mg/dL Blood 10/19/2024 7:50 AM CDT 10/19/2024 9:00 AM CDT Hermelindo Butler MD LAB BLOOD ORDER ELANA Final Result Performing Organization Address City/[facility] Co de Phone Number [facility] [place] [address] * (ABNORMAL) IgG (10/19/2024 7:50 AM CDT) [facility] Immunoglobulin G <300(L) 700 - 1,600 mg/dL Blood 10/19/2024 7:50 AM CDT 10/19/2024 9:00 AM CDT Hermelindo Butler MD LAB BLOOD ORDER ELANA Final Result Performing Organization Address [facility] de Phone Number [facility] [place] [address] * (ABNORMAL) Comprehensive metabolic panel (10/19/2024 7:50 AM CDT) [facility] Sodium 142 135 - 145 mmol/L Potassium, pl 4.4 3.3 - 4.9 mmol/L [facility] Chloride 106 97 - 110 mmol/L [facility] CO2 26 22 - 32 mmol/L [facility] Anion gap 10 2 - 15 mmol/L [facility] BUN 42(H) 6 - 25 mg/dL [facility] Creatinine 1.73(H) 0.80 - 1.30 mg/dL [facility] Glucose 109 70 - 199 mg/dL [facility] Comment: Interpretive Data Fasting glucose >/= [...] Calcium 9.5 8.5 - 10.3 mg/dL [facility] Bilirubin, total 0.4 0.1 - 1.2 mg/dL [facility] Protein, pl 6.3(L) 6.5 - 8.5 g/dL [facility] Albumin 4.0 3.5 - 5.0 g/dL [facility] Alk phos 71 40 - 130 Units/L [facility] ALT 16 7 - 55 Units/L [facility] AST 15 10 - 50 Units/L [facility] Blood 10/19/2024 7:50 AM CDT 10/19/2024 7:57 AM CDT us Hermelindo Butler MD LAB BLOOD ORDER ELANA Final Result [facility] Department [place] [address] * MRI Pelvis WO Contrast (10/10/2024 8:14 [...] normal caliber. No ascites. Procedure Note Tremaine Cebalols MD - 10/11/2024 EXAMINATION: MAGNETIC RESONANCE IMAGING [...] MD LAB BLOOD ORDER ELANA Final Result [facility] Department [place] [address] * (ABNORMAL) eGFR (09/28/2024 7:43 AM CDT) [...] ORDER ELANA Final Result Performing Organization Address City/[facility] Co de Phone Number [facility] Department [place] [address] * (ABNORMAL) eGFR (09/28/2024 7:43 AM CDT) [...] BLOOD ORDER ELANA Final Result [facility] Department [place] [address] * (ABNORMAL) Differential, auto (09/28/2024 7:43 AM CDT) Neutrophil abs 5.12 1.50 - 6.50 K/cumm Comment:Testing performed by : [facility], [address] [place] [phone] Lymphocyte abs 0.72(L) 0.80 - 3.30 K/cumm [facility] Comment:Testing performed by : [facility], [address] [place] [address] Monocyte abs 0.50 0.20 - 0.80 K/cumm [facility] Comment:Testing performed by : [facility], [address] [place] [address] Eosinophil abs 0.15 0.00 - 0.50 K/cumm [facility] Comment:Testing performed by : [facility], [address] [place] [address] Basophil abs 0.04 0.00 - 0.10 K/cumm [facility] Comment:Testing performed by : [facility], [address] [place], [place] [id number] Neutrophil pct 78.4 % [facility] Comment: Interpretive Data Percent cell count reference ranges are not reported, since discordance with absolute values may lead to misinterpretation of CBC data. Current Interpretive Data was last revised on 2017. Testing performed by: [facility], [address] [place] [phone] Lymphocyte pct 11.0 % [facility] Comment: Interpretive Data Percent cell count reference ranges are not reported, since discordance with absolute values may lead to misinterpretation of CBC data. Current Interpretive Data was last revised on 2017. Testing performed by: [facility], [address] [place] [phone] Monocyte pct 7.7 % [facility] Comment: Interpretive Data Percent cell count reference ranges are not reported, since discordance with absolute values may lead to misinterpretation of CBC data. Current Interpretive Data was last revised on 2017. Testing performed by: [facility], [address] [place] [phone] Eosinophil pct 2.3 % [facility] Comment: Interpretive Data Percent cell count reference ranges are not reported, since discordance with absolute values may lead to misinterpretation of CBC data. Current Interpretive Data was last revised on 2017. Testing performed by: [facility], [address] [place] [address] Basophil pct 0.7 % MT SUAREZ Comment: Interpretive Data Percent cell count reference ranges are not reported, since discordance with absolute values may lead to misinterpretation of CBC data. Current Interpretive Data was last revised on 2017. Testing performed by: [facility], [facility] [place] [address] Blood 09/28/2024 7:43 AM CDT 09/28/2024 8:00 AM CDT Hermelindo Butler MD LAB BLOOD ORDER ELANA Final Result MT SU[facility] Department [place] [address] * (ABNORMAL) Immunoglobulin free light chains (09/28/2024 7:43 AM CDT) Rock/Lambda ratio [facility] See Comment 0.26 - 1.65 Comment: Unable to calculate exact result. Interpretive Data The Binding Site FreeLite assay procedure was used. Results from different manufacturers or methods may not be comparable. Serial testing should be performed using the same methods and instrumentation. Current Interpretive Data was last revised on 2023. Rock free light chain [facility] <0.06(L) 0.33 - 1.94 mg/dL MT [facility] Comment: Interpretive Data The Binding Site FreeLite assay procedure was used. Results from different manufacturers or methods may not be comparable. Serial testing should be performed using the same methods and instrumentation. Current Interpretive Data was last revised on 2023. Lambda free light chain [facility] <0.14(L) 0.57 - 2.63 mg/dL MT [facility] Comment: Interpretive Data The Binding [...] SUAREZ [facility] Department [place] [address] * (ABNORMAL) CBC with auto differential (09/28/2024 7:43 AM CDT) WBC 6.53 3.80 - 9.90 K/cumm Comment:Testing performed by : [facility], [address] [place] [address] Hgb 11.5(L) 13.0 - 17.5 g/dL MT SU[facility] Comment:Testing performed by : [facility], [address] [place] [address] Hct 34.4(L) 38.9 - 50.3 % MT [facility] Comment:Testing performed by : [facility], [address] [place] [address] Plt 229 150 - 400 K/cumm MT SUAREZ Comment:Testing performed by : [facility], [address] [place] [address] MPV 7.0 6.8 - 10.4 fL MT [facility] Comment:Testing performed by : [facility], [address] [place] [address] RBC 3.61(L) 4.30 - 5.80 M/cumm MT SUAREZ Comment:Testing performed by : [facility], [address] [place] [address] MCV 95.2 81.3 - 96.4 fL CERFRANK SUAREZ Comment:Testing performed by : [facility], [address] [place] [address] MCH 31.7 27.1 - 33.3 pg CERFRANK SUAREZ Comment:Testing performed by : [facility], [address] [place] [address] MCHC 33.3 32.3 - 35.7 g/dL MT [facility] Comment:Testing performed by : [facility], [address] [place] [phone] RDW CV 15.6(H) 11.1 - 14.9 % [facility] Comment:Testing performed by : [facility], [address] [place] [phone] NRBC abs 0.00 0.00 - 0.01 K/cumm MT [facility] Comment:Testing performed by : [facility], [address] [place] [phone] Blood 09/28/2024 7:43 AM CDT 09/28/2024 8:00 AM CDT Hermelindo Butler MD LAB BLOOD ORDER ELANA Final Result Performing Organization Address [facility] de Phone Number [facility] [place] [address] * aPTT (09/28/2024 7:43 AM CDT) aPTT [...] ORDER ELANA Final Result Performing Organization Address [facility] Co de Phone Number [facility] [place] [address] * Protime-INR (09/28/2024 7:43 AM CDT) PT 11.9 9.7 - 13.0 sec INR 1.10 0.90 - 1.20 [facility] Comment: Interpretive data Oral anticoagulant therapeutic ranges: Venous thromboembolism prophylaxis or treatment: 2.0-3.0 CARDIOLOGY Standard range: 2.0-3.0 High-intensity range: 2.5-3.5 Refer to indication-specific guidelines for appropriate target ranges for prosthetic heart valve replacement. Current interpretive data was last revised on 2019. Blood 09/28/2024 7:43 AM CDT 09/28/2024 8:16 AM CDT Hermelindo Butler MD LAB BLOOD ORDER ELANA Final Result [facility] Department [place] [address] * (ABNORMAL) Protein electrophoresis with reflex, serum with interpretation (09/28/2024 7:43 AM CDT) Protein, sr 5.6(L) 6.2 - 8.2 g/dL Albumin 3.7 3.2 - 5.0 g/dL [facility] Alpha-1 globulin 0.4 0.2 - 0.4 g/dL [facility] Alpha-2 globulin 0.8 0.5 - 1.0 g/dL [facility] Beta-1 globulin 0.4 0.3 - 0.6 g/dL [facility] Beta-2 globulin 0.2 0.2 - 0.6 g/dL [facility] Gamma globulin 0.1(L) 0.5 - 1.7 g/dL [facility] SPEP interp Please see comment [facility] Comment: No apparent monoclonal peak Decreased gamma globulins Electrophoretic pattern appears similar to previous sample 09-01-24 See immunotyping for further information Reviewed and signed by Ivan Sims MD, PhD 09/29/2024 Blood 09/28/2024 7:43 AM CDT 09/28/2024 9:50 AM CDT Hermelindo Butler MD LAB BLOOD ORDER ELANA Final Result [facility] [place] [address] * Magnesium (09/28/2024 7:43 AM CDT) [facility] Magnesium 2.2 1.4 - 2.5 mg/dL Blood 09/28/2024 7:43 AM CDT 09/28/2024 8:03 AM CDT Hermelindo Butler MD LAB BLOOD ORDER ELANA Final Result Performing Organization Address [facility] [place] [address] * Lactate dehydrogenase (LD) (09/28/2024 7:43 AM CDT) [facility] Lactate dehydrogenase (LDH) 132 100 - 250 Units/L Blood 09/28/2024 7:43 AM CDT 09/28/2024 8:03 AM CDT Hermelindo Butler MD LAB BLOOD ORDER ELANA Final Result Performing Organization Address [facility] de Phone Number [facility] Department [place] [address] * Gamma GT (09/28/2024 7:43 AM CDT) [facility] GGT 28 10 - 50 Units/L Blood 09/28/2024 7:43 AM CDT 09/28/2024 8:03 AM CDT Hermelindo Butler MD LAB BLOOD ORDER ELANA Final Result Performing Organization Address [facility] Co de Phone Number [facility] [place] [address] * (ABNORMAL) IgA (09/28/2024 7:43 AM CDT) Pathologist [facility] Immunoglobulin A <50(L) 70 - 400 mg/dL Blood 09/28/2024 7:43 AM CDT 09/28/2024 8:24 AM CDT Hermelindo Butler MD LAB BLOOD ORDER ELANA Final Result Performing Organization Address City/[facility] de Phone Number [facility] [place] [address] * (ABNORMAL) IgM (09/28/2024 7:43 AM CDT) [facility] Immunoglobulin M <25(L) 40 - 230 mg/dL Blood 09/28/2024 7:43 AM CDT 09/28/2024 8:24 AM CDT Hermelindo Butler MD LAB BLOOD ORDER ELANA Final Result Performing Organization Address [facility] de Phone Number [facility] [place] [address] * (ABNORMAL) IgG (09/28/2024 7:43 AM CDT) [facility] Immunoglobulin G <300(L) 700 - 1,600 mg/dL Blood 09/28/2024 7:43 AM CDT 09/28/2024 8:24 AM CDT Hermelindo Butler MD LAB BLOOD ORDER ELANA Final Result Performing Organization Address [facility] de Phone Number [facility] [place] [address] * (ABNORMAL) Comprehensive metabolic panel (09/28/2024 7:43 AM CDT) [facility] Sodium 143 135 - 145 mmol/L Potassium, pl 4.1 3.3 - 4.9 mmol/L [facility] Chloride 106 97 - 110 mmol/L [facility] CO2 27 22 - 32 mmol/L [facility] Anion gap 10 2 - 15 mmol/L [facility] BUN 30(H) 6 - 25 mg/dL [facility] Creatinine 1.80(H) 0.80 - 1.30 mg/dL [facility] Glucose 106 70 - 199 mg/dL [facility] Comment: Interpretive Data Fasting glucose >/= [...] 2022. Calcium 9.6 8.5 - 10.3 mg/dL [facility] Bilirubin, total 0.5 0.1 - 1.2 mg/dL [facility] Protein, pl 6.2(L) 6.5 - 8.5 g/dL [facility] Albumin 3.9 3.5 - 5.0 g/dL [facility] Alk phos 62 40 - 130 Units/L [facility] ALT 12 7 - 55 Units/L [facility] AST 13 10 - 50 Units/L [facility] Blood 09/28/2024 7:43 AM CDT 09/28/2024 8:02 AM CDT us Hermelindo Butler MD LAB BLOOD ORDER ELANA Final Result [facility] [place] [address] * (ABNORMAL) Comprehensive metabolic panel (09/28/2024 7:43 AM CDT) Sodium 143 135 - 145 mmol/L Potassium, pl 4.1 3.3 - 4.9 mmol/L [facility] Chloride 106 97 - 110 mmol/L [facility] CO2 27 22 - 32 mmol/L [facility] Anion gap 10 2 - 15 mmol/L [facility] BUN 31(H) 6 - 25 mg/dL [facility] Creatinine 1.80(H) 0.80 - 1.30 mg/dL [facility] Glucose 105 70 - 199 mg/dL [facility] Comment: Interpretive Data Fasting glucose >/= [...] 2022. Calcium 9.6 8.5 - 10.3 mg/dL [facility] Bilirubin, total 0.5 0.1 - 1.2 mg/dL [facility] Protein, pl 6.1(L) 6.5 - 8.5 g/dL [facility] Albumin 4.0 3.5 - 5.0 g/dL [facility] Alk phos 61 40 - 130 Units/L [facility] ALT 13 7 - 55 Units/L [facility] AST 13 10 - 50 Units/L [facility] Blood 09/28/2024 7:43 AM CDT 09/28/2024 8:03 AM CDT us Hermelindo Butler MD LAB BLOOD ORDER ELANA Final Result [facility] [place] [address] * DC INSJ NON-TUNNELED CENTRAL VENOUS CATH AGE 7 YR/> (09/15/2024 1:20 PM CDT) Narrative Lianna Denny PA - 09/15/2024 1:20 PM CDT Lianna Denny PA 09/15/2024 1:40 PM Midline Insertion Date/Time: 09/15/2024 1:20 PM Performed by: Lianna Denny PA Authorized by: Lianna Denny PA [place] Protocol: RN Notified of Procedure: yes Informed consent: Risks, benefits, alternatives discussed and patient/product support sales representative/guardian agrees and accepts Patient's stated [...] Santana MD LAB BLOOD ORDERABLES Final Result [facility]3] [address] Department of Laboratories [place], [place] [id number] * (ABNORMAL) CBC without differential (09/15/2024 3:52 AM CDT) WBC 6.46 3.80 - 9.90 K/cumm Hgb 10.1(L) 13.0 - 17.5 g/dL [facility]3] Hct 31.4(L) 38.9 - 50.3 % [facility]3] Plt 149(L) 150 - 400 K/cumm [facility]3] MPV 9.2 9.1 - 12.3 fL [facility]3] RBC 3.20(L) 4.30 - 5.80 M/cumm [facility]3] MCV 98.1(H) 81.3 - 96.4 fL [facility]3] MCH 31.6 27.1 - 33.3 pg [facility]3] MCHC 32.2(L) 32.3 - 35.7 g/dL [facility]3] RDW CV 14.9 11.1 - 14.9 % [facility]3] RDW SD 54.3(H) 35.7 - 48.1 fL [facility]3] NRBC abs 0.00 0.00 - 0.01 K/cumm [facility]3] Blood 09/15/2024 3:52 AM CDT 09/15/2024 4:02 AM CDT us Emory Santana MD LAB BLOOD ORDERABLES Final Result [facility]3] [address] Department [place] [address] * (ABNORMAL) Basic metabolic panel (09/15/2024 3:52 AM CDT) Sodium 143 135 - 145 mmol/L Potassium, pl 3.2(L) 3.3 - 4.9 mmol/L [facility]3] Chloride 105 97 - 110 mmol/L [facility]3] CO2 28 22 - 32 mmol/L [facility]3] Anion gap 10 2 - 15 mmol/L [facility]3] BUN 12 6 - 25 mg/dL [facility]3] Creatinine 1.45(H) 0.80 - 1.30 mg/dL [facility]3] Glucose 110 70 - 199 mg/dL [facility]3] Comment: Interpretive Data Fasting glucose >/= 126 [...] 2022. Calcium 8.2(L) 8.5 - 10.3 mg/dL [facility]3] Blood 09/15/2024 3:52 AM CDT 09/15/2024 4:02 AM CDT us Emory Santana MD LAB BLOOD ORDERABLES Final Result Performing Organization Address [facility]/ZIP Co de Phone Number [facility] [address] Department [employer] [place], [place] [id number] * (ABNORMAL) eGFR (09/14/2024 2:25 AM CDT) [...] BLOOD ORDERABLES Final Result Performing Organization Address [facility]/ZIP Co de Phone Number [facility] [address] Department [place] [address] * (ABNORMAL) CBC without differential (09/14/2024 2:25 AM CDT) [facility] WBC 5.62 3.80 - 9.90 K/cumm Hgb 10.0(L) 13.0 - 17.5 g/dL [facility]3] Hct 31.1(L) 38.9 - 50.3 % [facility]3] Plt 163 150 - 400 K/cumm [facility]3] MPV 9.3 9.1 - 12.3 fL [facility]3] RBC 3.15(L) 4.30 - 5.80 M/cumm [facility]3] MCV 98.7(H) 81.3 - 96.4 fL [facility]3] MCH 31.7 27.1 - 33.3 pg [facility] [facility]3] MCHC 32.2(L) 32.3 - 35.7 g/dL [facility]3] RDW CV 15.4(H) 11.1 - 14.9 % [facility]3] RDW SD 55.6(H) 35.7 - 48.1 fL [facility]3] NRBC abs 0.00 0.00 - 0.01 K/cumm [facility]3] Blood 09/14/2024 2:25 AM CDT 09/14/2024 2:44 AM CDT us Emory Santana MD LAB BLOOD ORDERABLES Final Result [facility]3] [address] Department [place] [address] * (ABNORMAL) Basic metabolic panel (09/14/2024 2:25 AM CDT) Sodium 146(H) 135 - 145 mmol/L Potassium, pl 3.3 3.3 - 4.9 mmol/L [facility]3] Chloride 108 97 - 110 mmol/L [facility]3] CO2 27 22 - 32 mmol/L [facility]3] Anion gap 11 2 - 15 mmol/L [facility]3] BUN 18 6 - 25 mg/dL [facility]3] Creatinine 1.53(H) 0.80 - 1.30 mg/dL [facility]3] Glucose 116 70 - 199 mg/dL [facility]3] Comment: Interpretive Data Fasting glucose >/= 126 [...] Calcium 8.1(L) 8.5 - 10.3 mg/dL [facility] Blood 09/14/2024 2:25 AM CDT 09/14/2024 2:44 AM CDT us Emory Santana MD LAB BLOOD ORDERABLES Final Result [facility] [address] [place] [address] * (ABNORMAL) eGFR (09/13/2024 3:21 AM CDT) [...] BLOOD ORDERABLES Final Result Performing Organization Address City/[facility]/ZIP Co de Phone Number [facility] [address] [employer] [place] [address] * (ABNORMAL) CBC without differential (09/13/2024 3:21 AM CDT) [facility] WBC 5.46 3.80 - 9.90 K/cumm Hgb 10.1(L) 13.0 - 17.5 g/dL [facility]3] Hct 30.8(L) 38.9 - 50.3 % [facility]3] Plt 160 150 - 400 K/cumm [facility]3] MPV 9.7 9.1 - 12.3 fL [facility]3] RBC 3.15(L) 4.30 - 5.80 M/cumm [facility]3] MCV 97.8(H) 81.3 - 96.4 fL [facility]3] MCH 32.1 27.1 - 33.3 pg [facility]3] MCHC 32.8 32.3 - 35.7 g/dL [facility]3] RDW CV 15.7(H) 11.1 - 14.9 % [facility]3] RDW SD 56.4(H) 35.7 - 48.1 fL [facility]3] NRBC abs 0.00 0.00 - 0.01 K/cumm [facility]3] Blood 09/13/2024 3:21 AM CDT 09/13/2024 3:48 AM CDT us Emory Santana MD LAB BLOOD ORDERABLES Final Result [facility]3] [address] Department [place] [address] * (ABNORMAL) Basic metabolic panel (09/13/2024 3:21 AM CDT) [facility] Sodium 141 135 - 145 mmol/L Potassium, pl 3.3 3.3 - 4.9 mmol/L [facility]3] Chloride 105 97 - 110 mmol/L [facility]3] CO2 24 22 - 32 mmol/L [facility]3] Anion gap 12 2 - 15 mmol/L [facility]3] BUN 24 6 - 25 mg/dL [facility]3] Creatinine 1.55(H) 0.80 - 1.30 mg/dL [facility]3] Glucose 115 70 - 199 mg/dL [facility]3] Comment: Interpretive Data Fasting glucose >/= 126 [...] 2022. Calcium 8.1(L) 8.5 - 10.3 mg/dL [facility]3] Blood 09/13/2024 3:21 AM CDT 09/13/2024 3:48 AM CDT us Emory Santana MD LAB BLOOD ORDERABLES Final Result [facility]3] [address] Department [place] [address] * TRANSTHORACIC ECHO (TTE) COMPLETE W DOPPLER/CF WO CONTRAST (09/12/2024 2:39 PM CDT) LV EF 55-60 % CONS SCIMAGE Anatomical Region Laterality Modality Ultrasound 09/12/2024 12:1 1 PM CDT Narrative 09/12/2024 2:42 PM CDT [facility] [address] [address] ECHOCARDIOGRAM Patient Name: TORI BUFFYCarl : 1950 (73y 9m) Gender: M Study Date: 09/12/2024 12:11:05 PM Ht(Inch): 69 Wt(Lb): 275.57 BSA: 2.47 Morgue Technician: TC Location: [id number] Order Provider: ANUP SIN BMI: 40.69 BP: [...] Procedure Note Choco Thomas MD - 09/12/2024 [facility] [address] [place] [address] ECHOCARDIOGRAM Patient Name: BUFFY VALLECarl : 1950 (73y 9m) Gender: M Study Date: 09/12/2024 12:11:05 PM Ht(Inch): 69 Wt(Lb): 275.57 BSA: 2.47 Morgue Technician: JIM Location: [id number] Order Provider: ANUP SIN BMI: 40.69 BP: 128/72 Ref Provider: MENDY, ANUP - PROCEDURES: Echocardiographic Report: Transthoracic Echocardiogram with [...] * (ABNORMAL) eGFR (09/12/2024 3:14 AM CDT) [facility] eGFR 36(L) >=60 mL/min/1. 73 m2 Comment: [...] Santana MD LAB BLOOD ORDERABLES Final Result [facility]3] [address] Department [place] [address] * (ABNORMAL) CBC without differential (09/12/2024 3:14 AM CDT) [facility] WBC 7.12 3.80 - 9.90 K/cumm Hgb 10.3(L) 13.0 - 17.5 g/dL [facility]3] Hct 31.8(L) 38.9 - 50.3 % [facility]3] Plt 150 150 - 400 K/cumm [facility]3] MPV 9.5 9.1 - 12.3 fL [facility]3] RBC 3.23(L) 4.30 - 5.80 M/cumm [facility]3] MCV 98.5(H) 81.3 - 96.4 fL [facility]3] MCH 31.9 27.1 - 33.3 pg [facility]3] MCHC 32.4 32.3 - 35.7 g/dL [facility]3] RDW CV 15.9(H) 11.1 - 14.9 % [facility]3] RDW SD 57.1(H) 35.7 - 48.1 fL [facility]3] NRBC abs 0.00 0.00 - 0.01 K/cumm [facility]3] Blood 09/12/2024 3:14 AM CDT 09/12/2024 3:35 AM CDT us Emory Santana MD LAB BLOOD ORDERABLES Final Result [facility]3] [address] Department [place] [address] * (ABNORMAL) Basic metabolic panel (09/12/2024 3:14 AM CDT) Sodium 139 135 - 145 mmol/L Potassium, pl 3.3 3.3 - 4.9 mmol/L [facility]3] Chloride 101 97 - 110 mmol/L [facility]3] CO2 23 22 - 32 mmol/L [facility]3] Anion gap 15 2 - 15 mmol/L [facility]3] BUN 31(H) 6 - 25 mg/dL [facility]3] Creatinine 1.96(H) 0.80 - 1.30 mg/dL [facility]3] Glucose 114 70 - 199 mg/dL [facility]3] Comment: Interpretive Data Fasting glucose >/= 126 [...] 2022. Calcium 8.4(L) 8.5 - 10.3 mg/dL [facility]3] Blood 09/12/2024 3:14 AM CDT 09/12/2024 3:34 AM CDT us Emory Santana MD LAB BLOOD ORDERABLES Final Result Performing Organization Address City/[facility] Co de Phone Number [facility] [address] [place] [address] * (ABNORMAL) eGFR (09/11/2024 4:59 AM CDT) [...] MD LAB BLOOD ORDERABLES Final Result [facility] [address] Department [employer] [place], [place] [id number] * Blood culture Blood (09/11/2024 4:59 AM CDT) Report Final Report: No growth Blood 09/11/2024 4:59 AM CDT 09/11/2024 5:09 AM CDT [facility]ative [facility] - 09/16/2024 7:01 AM CDT From [...] organism identification may be performed using the [employer] Blood Culture Identification panel. This assay detects microbial DNA in a blood culture broth. This assay has been cleared by the [place] Food and Drug Administration and its performance characteristics have been verified by the [facility]. Interpretive data was last revised on July 11, 2022. us Emory Santana MD LAB MICROBIOLOGY - GENERAL ORDERABLES Final Result [facility]3] [address] Department [place] [address] * Blood culture Blood (09/11/2024 4:59 AM CDT) Report Final Report: No growth Blood 09/11/2024 4:59 AM CDT 09/11/2024 5:09 AM CDT Narrative [facility] - 09/16/2024 7:01 AM CDT Collection->Peripheral [...] organism identification may be performed using the [employer] Blood Culture Identification panel. This assay detects microbial DNA in a blood culture broth. This assay has been cleared by the [place] Food and Drug Administration and its performance characteristics have been verified by the [facility]. Interpretive data was last revised on July 11, 2022. us Emory Santana MD LAB MICROBIOLOGY - GENERAL ORDERABLES Final Result Performing Organization Address [facility]/ZIP Co de Phone Number [facility]3] [address] Department [place] [address] * (ABNORMAL) CBC without differential (09/11/2024 4:59 AM CDT) [facility] WBC 11.33(H) 3.80 - 9.90 K/cumm Hgb 10.8(L) 13.0 - 17.5 g/dL [facility]3] Hct 33.2(L) 38.9 - 50.3 % [facility]3] Plt 138(L) 150 - 400 K/cumm [facility]3] MPV 9.5 9.1 - 12.3 fL [facility]3] RBC 3.37(L) 4.30 - 5.80 M/cumm [facility]3] MCV 98.5(H) 81.3 - 96.4 fL [facility]3] MCH 32.0 27.1 - 33.3 pg [facility]3] MCHC 32.5 32.3 - 35.7 g/dL [facility]3] RDW CV 15.9(H) 11.1 - 14.9 % [facility]3] RDW SD 57.7(H) 35.7 - 48.1 fL [facility]3] NRBC abs 0.00 0.00 - 0.01 K/cumm [facility]3] Blood 09/11/2024 4:59 AM CDT 09/11/2024 5:08 AM CDT us Emory Santana MD LAB BLOOD ORDERABLES Final Result Performing Organization Address [facility]/ZIP Co de Phone Number [facility]3] [address] Department [place] [address] * (ABNORMAL) Basic metabolic panel (09/11/2024 4:59 AM CDT) [facility] Sodium 139 135 - 145 mmol/L Potassium, pl 3.7 3.3 - 4.9 mmol/L [facility]3] Chloride 102 97 - 110 mmol/L [facility]3] CO2 23 22 - 32 mmol/L [facility]3] Anion gap 14 2 - 15 mmol/L [facility]3] BUN 39(H) 6 - 25 mg/dL [facility]3] Creatinine 2.45(H) 0.80 - 1.30 mg/dL [facility]3] Glucose 131 70 - 199 mg/dL [facility]3] Comment: Interpretive Data Fasting glucose >/= 126 [...] 2022. Calcium 8.8 8.5 - 10.3 mg/dL [facility]3] Blood 09/11/2024 4:59 AM CDT 09/11/2024 5:07 AM CDT us Emory Santana MD LAB BLOOD ORDERABLES Final Result [facility]3] [address] Department [place] [address] * (ABNORMAL) Urinalysis reflex to microscopic and culture Urine, indwelling catheter (09/11/2024 4:07AM CDT) Color, ur Yellow Yellow Clarity, ur Clear Clear [facility]3] Specific gravity, ur 1.013 1.003 - 1.030 [facility]3] pH, urine 5.5 [facility]3] Comment: Interpretive Data U rine pH is affected by diet, medications, systemic acid-base disturbances, and renal tubular function. pH may affect urinary stone formation. For example, urine pH below 6.0 may help reduce the tendency for calcium phosphate stones and pH greater than 6.0 may reduce the tendency for uric acid stone formation. Source: [facility] [employer] Current Interpretive Data was last revised on 2017 Protein, ur ql Trace Negative [facility]3] Glucose, ur ql Negative Negative [facility]3] Ketones, ur Negative Negative [facility]3] Bilirubin, ur Negative Negative [facility]3] Blood, ur 1+(A) Negative [facility]3] Urobilinogen, ur <2.0 <2.0 mg/dL [facility]3] Nitrite, ur Negative Negative [facility]3] Leukocyte esterase, ur 2+(A) Negative [facility]3] UA reflex comment Reflex to microscopic UA will be performed. [facility]3] Urine, indwelling catheter 09/11/2024 4:07 AM CDT 09/11/2024 4:07 AM CDT us Emory Santana MD LAB MICROBIOLOGY - GENERAL ORDERABLES Final Result Performing Organization Address [facility] Co de Phone Number [facility]3] [facility] [place] [address] * (ABNORMAL) Urinalysis, microscopic only (09/11/2024 4:07 AM CDT) WBC, ur 11-20(A) 0 - 5 /HPF RBC, ur 3-5(A) 0 - 2 /HPF [facility]3] Culture Reflex Comment Reflex to urine culture will be performed. [facility]3] Urine, indwelling catheter 09/11/2024 4:07 AM CDT 09/11/2024 4:14 AM CDT us Emory Santana MD LAB URINE ORDERABLES Final Result Performing Organization Address [facility] Co de Phone Number [facility]3] [address] [place] [address] * (ABNORMAL) Urine culture Urine, indwelling catheter (09/11/2024 4:07 AM CDT) Report Final Report: Less than 10,000 colonies/ml of Gram Positive Organism No further workup. (.) Organism GRAM POSITIVE ORGANISM [facility]3] Urine, indwelling catheter 09/11/2024 4:07 AM CDT 09/11/2024 6:47 AM CDT Narrative [facility] - 09/13/2024 7:16 AM CDT Urine culture reflexed based upon urinalysis results. us Emory Santana MD LAB MICROBIOLOGY - GENERAL ORDERABLES Final Result Performing Organization Address [facility] Co de Phone Number [facility] [address] Department of Laboratories [place], [place] [id number] * (ABNORMAL) eGFR (09/11/2024 2:32 AM CDT) [...] BLOOD ORDERABLES Final Result Performing Organization Address City/[facility]/ZIP Co de Phone Number [facility] [address] Department of Laboratories [place], [place] [id number] * (ABNORMAL) Differential, auto (09/11/2024 2:32 AM CDT) Neutrophil abs 12.22(H) 1.50 - 6.50 K/cumm Imm gran abs 0.10 0.00 - 0.10 K/cumm [facility]3] Lymphocyte abs 0.79(L) 0.80 - 3.30 K/cumm [facility]3] Monocyte abs 1.12(H) 0.20 - 0.80 K/cumm [facility]3] Eosinophil abs 0.00 0.00 - 0.50 K/cumm [facility]3] Basophil abs 0.03 0.00 - 0.10 K/cumm [facility]3] Neutrophil pct 85.7 % [facility]3] Comment: Interpretive Data Percent cell count reference ranges are not reported, since discordance with absolute values may lead to misinterpretation of CBC data. Current Interpretive Data was last revised on 2017. Imm gran pct 0.7 % [facility]3] Comment: Interpretive Data Percent cell count reference ranges are not reported, since discordance with absolute values may lead to misinterpretation of CBC data. Current Interpretive Data was last revised on 2017. Lymphocyte pct 5.5 % [facility]3] Comment: Interpretive Data Percent cell count reference ranges are not reported, since discordance with absolute values may lead to misinterpretation of CBC data. Current Interpretive Data was last revised on 2017. Monocyte pct 7.9 % [facility]3] Comment: Interpretive Data Percent cell count reference ranges are not reported, since discordance with absolute values may lead to misinterpretation of CBC data. Current Interpretive Data was last revised on 2017. Eosinophil pct 0.0 % [facility]3] Comment: Interpretive Data Percent cell count reference ranges are not reported, since discordance with absolute values may lead to misinterpretation of CBC data. Current Interpretive Data was last revised on 2017. Basophil pct 0.2 % [facility]3] Comment: Interpretive Data Percent cell count reference ranges are not reported, since discordance with absolute values may lead to misinterpretation of CBC data. Current Interpretive Data was last revised on 2017. Blood 09/11/2024 2:32 AM CDT 09/11/2024 2:46 AM CDT us Emory Santana MD LAB BLOOD ORDERABLES Final Result [facility]3] [address] Department [place] [address] * (ABNORMAL) CBC with auto differential (09/11/2024 2:32 AM CDT) [facility] WBC 14.26(H) 3.80 - 9.90 K/cumm Hgb 11.6(L) 13.0 - 17.5 g/dL [facility]3] Hct 34.8(L) 38.9 - 50.3 % [facility]3] Plt 171 150 - 400 K/cumm [facility]3] MPV 9.8 9.1 - 12.3 fL [facility]3] RBC 3.59(L) 4.30 - 5.80 M/cumm [facility]3] MCV 96.9(H) 81.3 - 96.4 fL [facility]3] MCH 32.3 27.1 - 33.3 pg [facility]3] MCHC 33.3 32.3 - 35.7 g/dL [facility]3] RDW CV 16.1(H) 11.1 - 14.9 % [facility]3] RDW SD 57.1(H) 35.7 - 48.1 fL [facility]3] NRBC abs 0.00 0.00 - 0.01 K/cumm [facility]3] Blood 09/11/2024 2:32 AM CDT 09/11/2024 2:46 AM CDT us Emory Santana MD LAB BLOOD ORDERABLES Final Result [facility] [address] Department [place] [address] * aPTT (09/11/2024 2:32 AM CDT) [facility] aPTT 32 28 - 38 sec Comment: Interpretive Data Heparin therapeutic range: 66.0 - 100.0 seconds. Range based on correlation with therapeutic heparin activity range of 0.3 - 0.7 Units/mL. Current interpretive data was last revised on 2023. Blood 09/11/2024 2:32 AM CDT 09/11/2024 2:46 AM CDT us Emory Santana MD LAB BLOOD ORDERABLES Final Result [facility]3] [address] [facility] [place] [address] * (ABNORMAL) Protime-INR (09/11/2024 2:32 AM CDT) PT 16.4(H) 9.7 - 13.0 sec INR 1.51(H) 0.90 - 1.20 [facility] Comment: Interpretive data Oral anticoagulant therapeutic ranges: Venous thromboembolism prophylaxis or treatment: 2.0-3.0 CARDIOLOGY Standard range: 2.0-3.0 High-intensity range: 2.5-3.5 Refer to indication-specific guidelines for appropriate target ranges for prosthetic heart valve replacement. Current interpretive data was last revised on 2019. Blood 09/11/2024 2:32 AM CDT 09/11/2024 2:46 AM CDT us Emory Santana MD LAB BLOOD ORDERABLES Final Result Performing Organization Address [facility] Co de Phone Number [facility]3] [address] [facility] [place] [address] * Vancomycin level random (09/11/2024 2:32 AM CDT) Pathologist [facility] Vancomycin random <4.0 mcg/mL Comment: Interpretive Data No reference ranges have been established for random drug levels. Current Interpretive Data was last revised on 2020. Blood 09/11/2024 2:32 AM CDT 09/11/2024 2:46 AM CDT us Emory Santana MD LAB BLOOD ORDERABLES Final Result [facility]3] [address] [facility] [place] [address] * (ABNORMAL) Comprehensive metabolic panel (09/11/2024 2:32 AM CDT) Sodium 140 135 - 145 mmol/L Potassium, pl 3.7 3.3 - 4.9 mmol/L [facility]3] Chloride 103 97 - 110 mmol/L [facility]3] CO2 22 22 - 32 mmol/L [facility]3] Anion gap 15 2 - 15 mmol/L [facility]3] BUN 35(H) 6 - 25 mg/dL [facility]3] Creatinine 2.36(H) 0.80 - 1.30 mg/dL [facility]3] Glucose 128 70 - 199 mg/dL [facility]3] Comment: Interpretive Data Fasting glucose >/= 126 [...] 2022. Calcium 8.7 8.5 - 10.3 mg/dL [facility]3] Bilirubin, total 1.0 0.1 - 1.2 mg/dL [facility]3] Protein, pl 6.2(L) 6.5 - 8.5 g/dL [facility]3] Albumin 3.8 3.5 - 5.0 g/dL [facility]3] Alk phos 63 40 - 130 Units/L [facility]3] ALT 13 7 - 55 Units/L [facility]3] AST 15 10 - 50 Units/L [facility]3] Blood 09/11/2024 2:32 AM CDT 09/11/2024 2:46 AM CDT us Emory Santana MD LAB BLOOD ORDERABLES Final Result [facility]3] [address] Department [place] [address] * Differential, auto (08/31/2024 8:12 AM CDT) Neutrophil abs 6.0 1.5 - 6.5 K/cumm Comment:Testing performed by : [facility], [address] [place] [phone] Lymphocyte abs 1.0 0.8 - 3.3 K/cumm [facility] Comment:Testing performed by : [facility], [address] [place] [phone] Monocyte abs 0.6 0.2 - 0.8 K/cumm [facility] Comment:Testing performed by : [facility], [address] [place] [id number] Eosinophil abs 0.3 0.0 - 0.5 K/cumm [facility] Comment:Testing performed by : [facility], [address] [place] [phone] Basophil abs 0.1 0.0 - 0.1 K/cumm [facility] Comment:Testing performed by : [facility], [address] [place] [phone] Neutrophil pct 75.2 % [facility] Comment: Interpretive Data Percent cell count reference ranges are not reported, since discordance with absolute values may lead to misinterpretation of CBC data. Current Interpretive Data was last revised on 2017. Testing performed by: [facility], [address] [place] [phone] Lymphocyte pct 12.4 % [facility] Comment: Interpretive Data Percent cell count reference ranges are not reported, since discordance with absolute values may lead to misinterpretation of CBC data. Current Interpretive Data was last revised on 2017. Testing performed by: [facility], [address] [place] [phone] Monocyte pct 7.9 % [facility] Comment: Interpretive Data Percent cell count reference ranges are not reported, since discordance with absolute values may lead to misinterpretation of CBC data. Current Interpretive Data was last revised on 2017. Testing performed by: [facility], [address] [place] [phone] Eosinophil pct 3.9 % [facility] Comment: Interpretive Data Percent cell count reference ranges are not reported, since discordance with absolute values may lead to misinterpretation of CBC data. Current Interpretive Data was last revised on 2017. Testing performed by: [facility], [address] [place] [phone] Basophil pct 0.6 % [facility] Comment: Interpretive Data Percent cell count reference ranges are not reported, since discordance with absolute values may lead to misinterpretation of CBC data. Current Interpretive Data was last revised on 2017. Testing performed by: [facility], [address] [place] [phone] Blood 08/31/2024 8:12 AM CDT 08/31/2024 8:16 AM CDT Hermelindo Butler MD LAB BLOOD ORDER ELANA Final Result [facility] [place] [address] * (ABNORMAL) CBC with auto differential (08/31/2024 8:12 AM CDT) WBC 8.0 3.8 - 9.9 K/cumm Comment:Testing performed by : [facility], [address] [place] [address] Hgb 12.7(L) 13.0 - 17.5 g/dL [facility] Comment:Testing performed by : [facility], [address] [place] [address] Hct 37.8(L) 38.9 - 50.3 % [facility] Comment:Testing performed by : [facility], [address] [place] [address] Plt 176 150 - 400 K/cumm [facility] Comment:Testing performed by : [facility], [address] [place] [address] MPV 7.7 6.8 - 10.4 fL [facility] Comment:Testing performed by : [facility], [address] [place] [address] RBC 4.07(L) 4.30 - 5.80 M/cumm [facility] Comment:Testing performed by : [facility], [address] [place] [address] MCV 92.8 81.3 - 96.4 fL [facility] Comment:Testing performed by : [facility], [address] [place] [address] MCH 31.2 27.1 - 33.3 pg [facility] Comment:Testing performed by : [facility], [address] [place] [address] MCHC 33.6 32.3 - 35.7 g/dL [facility] Comment:Testing performed by : [facility], [address] [place] [address] RDW CV 16.1(H) 11.1 - 14.9 % [facility] Comment:Testing performed by : [facility], [address] [place] [address] NRBC abs 0.00 0.00 - 0.01 K/cumm [facility] Comment:Testing performed by : [facility], [address] [place] [address] Blood 08/31/2024 8:12 AM CDT 08/31/2024 8:16 AM CDT us Hermelindo Butler MD LAB BLOOD ORDER ELANA Final Result [facility] Department [place] [address] * Type and screen (08/31/2024 8:12 AM CDT) ABO Rh A Positive Yehuda, indirect Negative [facility] Comment:Patient has previous antibody history Blood 08/31/2024 8:12 AM CDT 08/31/2024 8:25 AM CDT Narrative [facility] - 08/31/2024 9:28 AM CDT Has the patient had Daratumumab or Isatuximab in the past 6 months?->Unknown Hermelindo Butler MD LAB BLOOD BANK TEST ORDERABLES Final Result Performing Organization Address City/[facility]/ZIP Co de Phone Number [facility] Department [place] [address] * Immunotyping, serum with interpretation (08/31/2024 8:12 AM CDT) Immunosubtraction Please see comment Comment: NO PARAPROTEIN DETECTED Reviewed and signed by Ivan Sims MD, PhD 09/01/2024 Blood 08/31/2024 8:12 AM CDT 08/31/2024 9:34 AM CDT Hermelindo Butler MD LAB BLOOD ORDER ELANA Final Result Performing Organization Address City/[facility] Co de Phone Number [facility] Department [place] [address] * (ABNORMAL) eGFR (08/31/2024 8:12 AM CDT) [...] MD LAB BLOOD ORDER ELANA Final Result [facility] Department [place] [address] * (ABNORMAL) Immunoglobulin free light chains (08/31/2024 8:12 AM CDT) Rock/Lambda ratio [facility] See Comment 0.26 - 1.65 Comment: Unable to calculate exact result. Interpretive Data The Binding Site FreeLite assay procedure was used. Results from different manufacturers or methods may not be comparable. Serial testing should be performed using the same methods and instrumentation. Current Interpretive Data was last revised on 2023. Rock free light chain [facility] <0.06(L) 0.33 - 1.94 mg/dL [facility] Comment: Interpretive Data The Binding Site FreeLite assay procedure was used. Results from different manufacturers or methods may not be comparable. Serial testing should be performed using the same methods and instrumentation. Current Interpretive Data was last revised on 2023. Lambda free light chain [facility] <0.14(L) 0.57 - 2.63 mg/dL [facility] Comment: Interpretive Data The Binding Site FreeLite assay procedure was used. Results from different manufacturers or methods may not be comparable. Serial testing should be performed using the same methods and instrumentation. Current Interpretive Data was last revised on 2023. Blood 08/31/2024 8:12 AM CDT 08/31/2024 9:34 AM CDT Hermelindo Butler MD LAB BLOOD ORDER ELANA Final Result Performing Organization Address [facility] de Phone Number [facility] [place] [address] * (ABNORMAL) aPTT (08/31/2024 8:12 AM CDT) [...] ORDER ELANA Final Result Performing Organization Address [facility] de Phone Number [facility] [place] [address] * Protime-INR (08/31/2024 8:12 AM CDT) PT 11.4 9.7 - 13.0 sec INR 1.05 0.90 - 1.20 [facility] Comment: Interpretive data Oral anticoagulant therapeutic ranges: Venous thromboembolism prophylaxis or treatment: 2.0-3.0 CARDIOLOGY Standard range: 2.0-3.0 High-intensity range: 2.5-3.5 Refer to indication-specific guidelines for appropriate target ranges for prosthetic heart valve replacement. Current interpretive data was last revised on 2019. Blood 08/31/2024 8:12 AM CDT 08/31/2024 8:41 AM CDT Hermelindo Butler MD LAB BLOOD ORDER ELANA Final Result Performing Organization Address [facility] de Phone Number [facility] [place] [address] * (ABNORMAL) Protein electrophoresis with reflex, serum with interpretation (08/31/2024 8:12 AM CDT) [facility] Protein, sr 6.0(L) 6.2 - 8.2 g/dL Albumin 3.9 3.2 - 5.0 g/dL [facility] Alpha-1 globulin 0.4 0.2 - 0.4 g/dL [facility] Alpha-2 globulin 0.7 0.5 - 1.0 g/dL [facility] Beta-1 globulin 0.5 0.3 - 0.6 g/dL [facility] Beta-2 globulin 0.3 0.2 - 0.6 g/dL [facility] Gamma globulin 0.2(L) 0.5 - 1.7 g/dL [facility] SPEP interp Please see comment [facility] Comment: No apparent monoclonal peak Decreased gamma globulins Electrophoretic pattern appears similar to previous sample 08/24/2024 See immunotyping for further information Reviewed and signed by Ivan Sims MD, PhD 09/01/2024 Blood 08/31/2024 8:12 AM CDT 08/31/2024 9:34 AM CDT Hermelindo Butler MD LAB BLOOD ORDER ELANA Final Result Performing Organization Address City/[facility] Co de Phone Number [facility] [place] [address] * Magnesium (08/31/2024 8:12 AM CDT) [facility] Magnesium 1.8 1.4 - 2.5 mg/dL Blood 08/31/2024 8:12 AM CDT 08/31/2024 8:20 AM CDT Hermelindo Butler MD LAB BLOOD ORDER ELANA Final Result Performing Organization Address City/[facility] Co de Phone Number [facility] [place] [address] * Lactate dehydrogenase (LD) (08/31/2024 8:12 AM CDT) Pathologist [facility] Lactate dehydrogenase (LDH) 155 100 - 250 Units/L Blood 08/31/2024 8:12 AM CDT 08/31/2024 8:20 AM CDT Hermelindo Butler MD LAB BLOOD ORDER ELANA Final Result Performing Organization Address City/[facility] Co de Phone Number [facility] Department [place] [address] * Gamma GT (08/31/2024 8:12 AM CDT) [facility] GGT 27 10 - 50 Units/L Blood 08/31/2024 8:12 AM CDT 08/31/2024 8:20 AM CDT Hermelindo Butler MD LAB BLOOD ORDER ELANA Final Result Performing Organization Address [facility] de Phone Number [facility] Department [place] [address] * (ABNORMAL) IgA (08/31/2024 8:12 AM CDT) Pathologist [facility] Immunoglobulin A <50(L) 70 - 400 mg/dL Blood 08/31/2024 8:12 AM CDT 08/31/2024 8:38 AM CDT Hermelindo Butler MD LAB BLOOD ORDER ELANA Final Result Performing Organization Address City/[facility] de Phone Number [facility] Department [place] [address] * (ABNORMAL) IgM (08/31/2024 8:12 AM CDT) Pathologist [facility] Immunoglobulin M <25(L) 40 - 230 mg/dL Blood 08/31/2024 8:12 AM CDT 08/31/2024 8:38 AM CDT Hermelindo Butler MD LAB BLOOD ORDER ELANA Final Result Performing Organization Address City/[facility] Co de Phone Number [facility] Department [place] [address] * (ABNORMAL) IgG (08/31/2024 8:12 AM CDT) Pathologist [facility] Immunoglobulin G <300(L) 700 - 1,600 mg/dL Blood 08/31/2024 8:12 AM CDT 08/31/2024 8:38 AM CDT Hermelindo Butler MD LAB BLOOD ORDER ELANA Final Result Performing Organization Address [facility] de Phone Number [facility] Department [place] [address] * (ABNORMAL) Comprehensive metabolic panel (08/31/2024 8:12 AM CDT) [facility] Sodium 141 135 - 145 mmol/L Potassium, pl 4.0 3.3 - 4.9 mmol/L [facility] Chloride 103 97 - 110 mmol/L [facility] CO2 29 22 - 32 mmol/L [facility] Anion gap 9 2 - 15 mmol/L [facility] BUN 31(H) 6 - 25 mg/dL [facility] Creatinine 1.61(H) 0.80 - 1.30 mg/dL [facility] Glucose 114 70 - 199 mg/dL [facility] Comment: Interpretive Data Fasting glucose >/= [...] Calcium 9.4 8.5 - 10.3 mg/dL [facility] Bilirubin, total 0.4 0.1 - 1.2 mg/dL [facility] Protein, pl 6.5 6.5 - 8.5 g/dL [facility] Albumin 4.1 3.5 - 5.0 g/dL [facility] Alk phos 65 40 - 130 Units/L [facility] ALT 16 7 - 55 Units/L [facility] AST 15 10 - 50 Units/L [facility] Blood 08/31/2024 8:12 AM CDT 08/31/2024 8:20 AM CDT Hermelindo Butler MD LAB BLOOD ORDER ELANA Final Result [facility] Department [place] [address] * SCAN - LABS (08/30/2024) us Provider [...] Hargrove MD LAB BLOOD ORDERABLES Final Result [facility] [place] [address] * (ABNORMAL) Differential, auto (08/26/2024 12:25 AM CDT) Neutrophil abs 5.3 1.5 - 6.5 K/cumm Imm gran abs 0.0 0.0 - 0.1 K/cumm [facility] Lymphocyte abs 0.7(L) 0.8 - 3.3 K/cumm [facility] Monocyte abs 0.6 0.2 - 0.8 K/cumm [facility] Eosinophil abs 0.3 0.0 - 0.5 K/cumm [facility] Basophil abs 0.0 0.0 - 0.1 K/cumm [facility] Neutrophil pct 75.7 % [facility] Comment: Interpretive Data Percent cell count reference ranges are not reported, since discordance with absolute values may lead to misinterpretation of CBC data. Current Interpretive Data was last revised on 2017. Imm gran pct 0.4 % [facility] Comment: Interpretive Data Percent cell count reference ranges are not reported, since discordance with absolute values may lead to misinterpretation of CBC data. Current Interpretive Data was last revised on 2017. Lymphocyte pct 10.4 % [facility] Comment: Interpretive Data Percent cell count reference ranges are not reported, since discordance with absolute values may lead to misinterpretation of CBC data. Current Interpretive Data was last revised on 2017. Monocyte pct 9.0 % [facility] Comment: Interpretive Data Percent cell count reference ranges are not reported, since discordance with absolute values may lead to misinterpretation of CBC data. Current Interpretive Data was last revised on 2017. Eosinophil pct 4.4 % [facility] Comment: Interpretive Data Percent cell count reference ranges are not reported, since discordance with absolute values may lead to misinterpretation of CBC data. Current Interpretive Data was last revised on 2017. Basophil pct 0.1 % [facility] Comment: Interpretive Data Percent cell count reference ranges are not reported, since discordance with absolute values may lead to misinterpretation of CBC data. Current Interpretive Data was last revised on 2017. Blood 08/26/2024 12:2 5 AM CDT 08/26/2024 12:35 AM CDT Karlos Hargrove MD LAB BLOOD ORDERABLES Final Result [facility] [place] [address] * (ABNORMAL) CBC with auto differential (08/26/2024 12:25 AM CDT) WBC 7.0 3.8 - 9.9 K/cumm Hgb 11.8(L) 13.0 - 17.5 g/dL [facility] Hct 35.7(L) 38.9 - 50.3 % [facility] Plt 131(L) 150 - 400 K/cumm [facility] MPV 9.2 9.1 - 12.3 fL [facility] RBC 3.83(L) 4.30 - 5.80 M/cumm [facility] MCV 93.2 81.3 - 96.4 fL [facility] MCH 30.8 27.1 - 33.3 pg [facility] MCHC 33.1 32.3 - 35.7 g/dL [facility] RDW CV 15.4(H) 11.1 - 14.9 % [facility] RDW SD 51.7(H) 35.7 - 48.1 fL [facility] NRBC abs 0.00 0.00 - 0.01 K/cumm [facility] Blood 08/26/2024 12:2 5 AM CDT 08/26/2024 12:35 AM CDT us Karlos Hargrove MD LAB BLOOD ORDERABLES Final Result Performing Organization Address [facility] Co de Phone Number [facility] [place] [address] * Type and screen (08/26/2024 12:25 AM CDT) [facility] Yehuda, indirect Negative Comment:Patient has previous antibody history ABO Rh A Positive [facility] Blood 08/26/2024 12:2 5 AM CDT 08/26/2024 12:38 AM CDT Narrative [facility] - 08/26/2024 2:23 AM CDT Has the patient had Daratumumab or Isatuximab in the past 6 months?->Unknown Karlos Hargrove MD LAB BLOOD BANK TEST ORDERA BLES Final Result Performing Organization Address [facility] Co de Phone Number [facility] [place] [address] * (ABNORMAL) Uric acid (08/26/2024 12:25 AM CDT) [facility] Uric acid 8.6(H) 3.0 - 8.0 mg/dL Blood 08/26/2024 12:2 5 AM CDT 08/26/2024 12:35 AM CDT Narrative [facility] - 08/26/2024 1:10 AM CDT Friday and only. Morning draw. . us Karlos Hargrove MD LAB BLOOD ORDERABLES Final Result Performing Organization Address [facility] Co de Phone Number [facility] [place] [address] * Phosphorus (08/26/2024 12:25 AM CDT) [facility] Phosphorus, pl 3.6 2.3 - 4.5 mg/dL Blood 08/26/2024 12:2 5 AM CDT 08/26/2024 12:35 AM CDT us Karlos Hargrove MD LAB BLOOD ORDERABLES Final Result Performing Organization Address [facility] Co de Phone Number [facility] [place] [address] * Magnesium (08/26/2024 12:25 AM CDT) [facility] Magnesium 1.7 1.4 - 2.5 mg/dL Blood 08/26/2024 12:2 5 AM CDT 08/26/2024 12:35 AM CDT us Karlos Hargrove MD LAB BLOOD ORDERABLES Final Result Performing Organization Address [facility] de Phone Number [facility] [place] [address] * Lactate dehydrogenase (LD) (08/26/2024 12:25 AM CDT) [facility] Lactate dehydrogenase (LDH) 167 100 - 250 Units/L Blood 08/26/2024 12:2 5 AM CDT 08/26/2024 12:35 AM CDT Narrative [facility] - 08/26/2024 1:10 AM CDT Friday and only. Morning draw. us Karlos Hargrove MD LAB BLOOD ORDERABLES Final Result Performing Organization Address [facility] [place] [address] * (ABNORMAL) Comprehensive metabolic panel (08/26/2024 12:25 AM CDT) [facility] Sodium 148(H) 135 - 145 mmol/L Potassium, pl 3.4 3.3 - 4.9 mmol/L [facility] Chloride 108 97 - 110 mmol/L [facility] CO2 28 22 - 32 mmol/L [facility] Anion gap 12 2 - 15 mmol/L [facility] BUN 35(H) 6 - 25 mg/dL [facility] Creatinine 2.27(H) 0.80 - 1.30 mg/dL [facility] Glucose 107 70 - 199 mg/dL [facility] Comment: Interpretive Data Fasting glucose >/= [...] 2022. Calcium 8.9 8.5 - 10.3 mg/dL [facility] Bilirubin, total 0.6 0.1 - 1.2 mg/dL [facility] Protein, pl 5.9(L) 6.5 - 8.5 g/dL [facility] Albumin 3.7 3.5 - 5.0 g/dL [facility] Alk phos 60 40 - 130 Units/L [facility] ALT 15 7 - 55 Units/L [facility] AST 13 10 - 50 Units/L [facility] Blood 08/26/2024 12:2 5 AM CDT 08/26/2024 12:35 AM CDT us Karlos Hargrove MD LAB BLOOD ORDERABLES Final Result [facility] [place] [address] * US Vein Duplex Lower Extremity Bilateral Complete (08/25/2024 9:30 AM CDT) Anatomical Region Laterality Modality Vascular Bilateral Ultrasound 08/25/2024 8:37 AM CDT Narrative 08/27/2024 11:10 AM CDT [facility] - Department of Vascular Surgery, Vascular Laboratory [address] [place], [place] [id number] Lower Extremity Venous Ultrasound Report Patient Name: BUFFY VALLE B : 1950 (73y 8m) Study Date: 08/25/2024 8:37:41 AM Gender: M Tech: Location: [id number] Ref Provider: OLGA KEITH Quality: Adequate Order Provider: OLGA KEITH PROCEDURES: Vascular Report: Venous Duplex imaging was performed bilaterally in the lower extremities. The common femoral, femoral, popliteal, posterior tibial, peroneal veins were evaluated for patency, spontaneity and phasicity with Doppler, compression and augmentation maneuvers. Great saphenous vein proximal at the junction was evaluated with compression maneuvers. INDICATIONS: Localized edema. FINDINGS: Performing Morgue Technician: Farzana Owens RVT. Bilateral: Venous Doppler [...] above. Electronically Signed By: Cesar Cabello MD [facility] [phone] 08/27/2024 10:10:26 AM CDT Procedure Note Cesar Cabello MD - 08/27/2024 [facility] - Department of Vascular Surgery,Vascular Laboratory [address] [place] [address] Lower Extremity Venous Ultrasound Report Patient Name: BUFFY VALLE Carl : 1950 (73y 8m) Study Date: 08/25/2024 8:37:41 AM Gender: M Tech: Location: [id number] Ref Provider: OLGA KEITH Quality: Adequate Order Provider: OLGA KEITH PROCEDURES: Vascular Report: Venous Duplex imaging was performed bilaterally in the lower extremities.The common femoral, femoral, popliteal, posterior tibial, peroneal veins wereevaluated for patency, spontaneity and phasicity with Doppler, compression and augmentationmaneuvers. Great saphenous vein proximal at the junction was evaluated with compressionmaneuvers. INDICATIONS: Localized edema. FINDINGS: Performing Morgue Technician: Farzana Owens RVT. Bilateral: Venous Doppler [...] above. Electronically Signed By: Cesar Cabello MD [facility] [phone] 08/27/2024 10:10:26 AM CDT Olga Keith MD [facility] US PROCEDURES Final Result * (ABNORMAL) eGFR [...] Hargrove MD LAB BLOOD ORDERABLES Final Result [facility] [place] [address] * (ABNORMAL) Differential, auto (08/25/2024 12:34 AM CDT) Pathologist [facility] Neutrophil abs 5.2 1.5 - 6.5 K/cumm Imm gran abs 0.1 0.0 - 0.1 K/cumm [facility] Lymphocyte abs 0.5(L) 0.8 - 3.3 K/cumm [facility] Monocyte abs 0.5 0.2 - 0.8 K/cumm [facility] Eosinophil abs 0.4 0.0 - 0.5 K/cumm [facility] Basophil abs 0.0 0.0 - 0.1 K/cumm [facility] Neutrophil pct 77.6 % [facility] Comment: Interpretive Data Percent cell count reference ranges are not reported, since discordance with absolute values may lead to misinterpretation of CBC data. Current Interpretive Data was last revised on 2017. Imm gran pct 0.7 % [facility] Comment: Interpretive Data Percent cell count reference ranges are not reported, since discordance with absolute values may lead to misinterpretation of CBC data. Current Interpretive Data was last revised on 2017. Lymphocyte pct 7.9 % [facility] Comment: Interpretive Data Percent cell count reference ranges are not reported, since discordance with absolute values may lead to misinterpretation of CBC data. Current Interpretive Data was last revised on 2017. Monocyte pct 7.5 % [facility] Comment: Interpretive Data Percent cell count reference ranges are not reported, since discordance with absolute values may lead to misinterpretation of CBC data. Current Interpretive Data was last revised on 2017. Eosinophil pct 6.0 % [facility] Comment: Interpretive Data Percent cell count reference ranges are not reported, since discordance with absolute values may lead to misinterpretation of CBC data. Current Interpretive Data was last revised on 2017. Basophil pct 0.3 % [facility] Comment: Interpretive Data Percent cell count reference ranges are not reported, since discordance with absolute values may lead to misinterpretation of CBC data. Current Interpretive Data was last revised on 2017. Blood 08/25/2024 12:3 4 AM CDT 08/25/2024 12:57 AM CDT Karlos Hargrove MD LAB BLOOD ORDERABLES Final Result [facility] [place] [address] * (ABNORMAL) CBC with auto differential (08/25/2024 12:34 AM CDT) WBC 6.7 3.8 - 9.9 K/cumm Hgb 11.2(L) 13.0 - 17.5 g/dL [facility] Hct 33.3(L) 38.9 - 50.3 % [facility] Plt 136(L) 150 - 400 K/cumm [facility] MPV 9.5 9.1 - 12.3 fL [facility] RBC 3.57(L) 4.30 - 5.80 M/cumm [facility] MCV 93.3 81.3 - 96.4 fL [facility] MCH 31.4 27.1 - 33.3 pg [facility] MCHC 33.6 32.3 - 35.7 g/dL [facility] RDW CV 15.3(H) 11.1 - 14.9 % [facility] RDW SD 51.0(H) 35.7 - 48.1 fL [facility] NRBC abs 0.00 0.00 - 0.01 K/cumm [facility] Blood 08/25/2024 12:3 4 AM CDT 08/25/2024 12:57 AM CDT us Karlos Hargrove MD LAB BLOOD ORDERABLES Final Result Performing Organization Address City/[facility]/ZIP Co de Phone Number [facility] [place] [address] * Phosphorus (08/25/2024 12:34 AM CDT) Phosphorus, pl 3.7 2.3 - 4.5 mg/dL Blood 08/25/2024 12:3 4 AM CDT 08/25/2024 12:55 AM CDT us Karlos Hargrove MD LAB BLOOD ORDERABLES Final Result Performing Organization Address City/[facility] Co de Phone Number [facility] [place] [place] [address] * Magnesium (08/25/2024 12:34 AM CDT) Magnesium 1.9 1.4 - 2.5 mg/dL Blood 08/25/2024 12:3 4 AM CDT 08/25/2024 12:55 AM CDT us Karlos Hargrove MD LAB BLOOD ORDERABLES Final Result Performing Organization Address City/[facility] Co de Phone Number [facility] Department [place] [address] * (ABNORMAL) Comprehensive metabolic panel (08/25/2024 12:34 AM CDT) Sodium 147(H) 135 - 145 mmol/L Potassium, pl 3.2(L) 3.3 - 4.9 mmol/L [facility] Chloride 109 97 - 110 mmol/L [facility] CO2 26 22 - 32 mmol/L [facility] Anion gap 12 2 - 15 mmol/L [facility] BUN 47(H) 6 - 25 mg/dL [facility] Creatinine 2.74(H) 0.80 - 1.30 mg/dL [facility] Glucose 154 70 - 199 mg/dL [facility] Comment: Interpretive Data Fasting glucose >/= [...] 2022. Calcium 8.4(L) 8.5 - 10.3 mg/dL [facility] Bilirubin, total 0.4 0.1 - 1.2 mg/dL [facility] Protein, pl 5.9(L) 6.5 - 8.5 g/dL [facility] Albumin 3.9 3.5 - 5.0 g/dL [facility] Alk phos 61 40 - 130 Units/L [facility] ALT 18 7 - 55 Units/L [facility] AST 17 10 - 50 Units/L [facility] Blood 08/25/2024 12:3 4 AM CDT 08/25/2024 12:55 AM CDT Karlos Hargrove MD LAB BLOOD ORDERABLES Final Result [facility] Department [place] [address] * Sodium, urine, random (08/24/2024 5:16 PM CDT) Sodium, ur 44 mmol/L Comment: Interpretive Data No reference range established. Current interpretive data was last revised 2018. Urine 08/24/2024 5:16 PM CDT 08/24/2024 5:31 PM CDT us Olga Keith MD LAB URINE ORDERABLES Final Resul t [facility] [place] [address] * CT Abdomen Pelvis WO Contrast (08/24/2024 [...] abnormalities of the imaged skeleton. Procedure Note Ranadll Braun MD - 08/24/2024 EXAMINATION: Computed tomography [...] [facility] Neutrophil pct 73.7 % [facility] Comment: Interpretive Data Percent cell count reference ranges are not reported, since discordance with absolute values may lead to misinterpretation of CBC data. Current Interpretive Data was last revised on 2017. Imm gran pct 0.6 % [facility] Comment: Interpretive Data Percent cell count reference ranges are not reported, since discordance with absolute values may lead to misinterpretation of CBC data. Current Interpretive Data was last revised on 2017. Lymphocyte pct 10.0 % [facility] Comment: Interpretive Data Percent cell count reference ranges are not reported, since discordance with absolute values may lead to misinterpretation of CBC data. Current Interpretive Data was last revised on 2017. Monocyte pct 8.3 % [facility] Comment: Interpretive Data Percent cell count reference ranges are not reported, since discordance with absolute values may lead to misinterpretation of CBC data. Current Interpretive Data was last revised on 2017. Eosinophil pct 7.1 % [facility] Comment: Interpretive Data Percent cell count reference ranges are not reported, since discordance with absolute values may lead to misinterpretation of CBC data. Current Interpretive Data was last revised on 2017. Basophil pct 0.3 % [facility] Comment: Interpretive Data Percent cell count reference ranges are not reported, since discordance with absolute values may lead to misinterpretation of CBC data. Current Interpretive Data was last revised on 2017. Blood 08/24/2024 2:30 AM CDT 08/24/2024 1:28 AM CDT Karlos Hargrove MD LAB BLOOD ORDERABLES Final Result [facility] [place] [address] * (ABNORMAL) CBC with auto differential (08/24/2024 2:30 AM CDT) WBC 6.6 3.8 - 9.9 K/cumm Hgb 10.9(L) 13.0 - 17.5 g/dL [facility] Hct 33.1(L) 38.9 - 50.3 % [facility] Plt 130(L) 150 - 400 K/cumm [facility] MPV 10.0 9.1 - 12.3 fL [facility] RBC 3.50(L) 4.30 - 5.80 M/cumm [facility] MCV 94.6 81.3 - 96.4 fL [facility] MCH 31.1 27.1 - 33.3 pg [facility] MCHC 32.9 32.3 - 35.7 g/dL [facility] RDW CV 15.3(H) 11.1 - 14.9 % [facility] RDW SD 51.8(H) 35.7 - 48.1 fL [facility] NRBC abs 0.00 0.00 - 0.01 K/cumm [facility] Blood 08/24/2024 2:30 AM CDT 08/24/2024 1:28 AM CDT Karlos Hargrove MD LAB BLOOD ORDERABLES Final Result Performing Organization Address City/[facility]/ZIP Co de Phone Number [facility] Department [place] [address] * (ABNORMAL) eGFR (08/24/2024 1:12 AM CDT) [...] MD LAB BLOOD ORDERABLES Final Result [facility] Department [place] [address] * aPTT (08/24/2024 1:12 AM CDT) aPTT [...] BLOOD ORDERABLES Final Result Performing Organization Address City/[facility] Co de Phone Number [facility] Department [place] [address] * Protime-INR (08/24/2024 1:12 AM CDT) PT 11.7 9.7 - 13.0 sec INR 1.08 0.90 - 1.20 [facility] Comment: Interpretive data Oral anticoagulant therapeutic ranges: Venous thromboembolism prophylaxis or treatment: 2.0-3.0 CARDIOLOGY Standard range: 2.0-3.0 High-intensity range: 2.5-3.5 Refer to indication-specific guidelines for appropriate target ranges for prosthetic heart valve replacement. Current interpretive data was last revised on 2019. Blood 08/24/2024 1:12 AM CDT 08/24/2024 1:53 AM CDT Karlos Hargrove MD LAB BLOOD ORDERABLES Final Result Performing Organization Address City/[facility] Co de Phone Number [facility] Department [place] [address] * Type and screen (08/24/2024 1:12 AM CDT) Yehuda, indirect Negative Comment:Patient has previous antibody history ABO Rh A Positive [facility] Blood 08/24/2024 1:12 AM CDT 08/24/2024 1:36 AM CDT Narrative [facility] - 08/24/2024 2:36 AM CDT Has the patient had Daratumumab or Isatuximab in the past 6 months?->Unknown Karlos Hargrove MD LAB BLOOD BANK TEST ORDERA BLES Final Result Performing Organization Address City/[facility] Co de Phone Number [facility] [place] [address] * (ABNORMAL) Uric acid (08/24/2024 1:12 AM CDT) Uric acid 9.5(H) 3.0 - 8.0 mg/dL Blood 08/24/2024 1:12 AM CDT 08/24/2024 1:35 AM CDT Narrative [facility] - 08/24/2024 2:47 AM CDT Friday and only. Morning draw. . Karlos Hargrove MD LAB BLOOD ORDERABLES Final Result Performing Organization Address [facility] Co de Phone Number [facility] [place] [address] * Phosphorus (08/24/2024 1:12 AM CDT) Phosphorus, pl 4.5 2.3 - 4.5 mg/dL Blood 08/24/2024 1:12 AM CDT 08/24/2024 1:35 AM CDT Karlos Hargrove MD LAB BLOOD ORDERABLES Final Result Performing Organization Address City/[facility] Co de Phone Number [facility] [place] [address] * Magnesium (08/24/2024 1:12 AM CDT) Magnesium 2.0 1.4 - 2.5 mg/dL Blood 08/24/2024 1:12 AM CDT 08/24/2024 1:35 AM CDT Karlos Hargrove MD LAB BLOOD ORDERABLES Final Result Performing Organization Address City/[facility] Co de Phone Number [facility] [place] [address] * Lactate dehydrogenase (LD) (08/24/2024 1:12 AM CDT) [facility] Lactate dehydrogenase (LDH) 226 100 - 250 Units/L Blood 08/24/2024 1:12 AM CDT 08/24/2024 1:35 AM CDT Narrative [facility] - 08/24/2024 2:47 AM CDT Friday and only. Morning draw. Karlos Hargrove MD LAB BLOOD ORDERABLES Final Result Performing Organization Address [facility] de Phone Number [facility] [place] [address] * (ABNORMAL) Comprehensive metabolic panel (08/24/2024 1:12 AM CDT) [facility] Sodium 148(H) 135 - 145 mmol/L Potassium, pl 3.6 3.3 - 4.9 mmol/L [facility] Chloride 111(H) 97 - 110 mmol/L [facility] CO2 25 22 - 32 mmol/L [facility] Anion gap 12 2 - 15 mmol/L [facility] BUN 56(H) 6 - 25 mg/dL [facility] Creatinine 3.16(H) 0.80 - 1.30 mg/dL [facility] Glucose 102 70 - 199 mg/dL [facility] Comment: Interpretive Data Fasting glucose >/= [...] Calcium 8.5 8.5 - 10.3 mg/dL [facility] Bilirubin, total 0.4 0.1 - 1.2 mg/dL [facility] Protein, pl 5.7(L) 6.5 - 8.5 g/dL [facility] Albumin 3.6 3.5 - 5.0 g/dL [facility] Alk phos 62 40 - 130 Units/L [facility] ALT 16 7 - 55 Units/L [facility] AST 11 10 - 50 Units/L [facility] Blood 08/24/2024 1:12 AM CDT 08/24/2024 1:35 AM CDT Karlos Hargrove MD LAB BLOOD ORDERABLES Final Result [facility] Department [place] [address] * US Kidney Complete (08/23/2024 8:12 PM [...] by: Qian Barnes M.D. us Kinga Jones SYSTEM SUPPORT DEVELOPER IMG US PROCEDURES Final R esult * (ABNORMAL) Urinalysis reflex to microscopic (08/23/2024 7:01 PM CDT) Color, ur Straw Yellow Clarity, ur Clear Clear [facility] Specific gravity, ur 1.011 1.003 - 1.030 [facility] pH, urine 5.5 [facility] Comment: Interpretive Data U rine pH is affected by diet, medications, systemic acid-base disturbances, and renal tubular function. pH may affect urinary stone formation. For example, urine pH below 6.0 may help reduce the tendency for calcium phosphate stones and pH greater than 6.0 may reduce the tendency for uric acid stone formation. Source: [employer] Current Interpretive Data was last revised on [...] Reflex to microscopic UA will be performed. [facility] Urine 08/23/2024 7:01 PM CDT 08/23/2024 7:15 PM CDT Kinga Jones NP LAB URINE ORDERABLES [place] l Result Performing Organization Address [facility] Co de Phone Number [facility] Department [place] [address] * Protein / creatinine ratio, urine, random (08/23/2024 7:01 PM CDT) Protein, ur, quant 6.4 mg/dL Comment: Interpretive Data No reference range established. Current interpretive data was last revised 2018. Creatinine Ur 74.0 mg/dL [facility] Comment: Interpretive Data No reference range established. Current interpretive data was last revised 2018. Protein/creatinin e ratio 86.5 0.0 - 180.0 mg/g CR [facility] Urine 08/23/2024 7:01 PM CDT 08/23/2024 7:28 PM CDT Kinga Jones NP LAB URINE ORDERABLES [place] l Result Performing Organization Address [facility] Co de Phone Number [facility] Department [place] [address] * (ABNORMAL) Urinalysis, microscopic only (08/23/2024 7:01 PM CDT) WBC, ur 0-5 0 - 5 /HPF RBC, ur 6-10(A) 0 - 2 /HPF [facility] Urine 08/23/2024 7:01 PM CDT 08/23/2024 7:15 PM CDT Kinga Jones NP LAB URINE ORDERABLES [place] l Result Performing Organization Address City/[facility] Co de Phone Number [facility] Department [place] [address] * Urine culture Urine, clean voided (08/23/2024 7:01 PM CDT) [facility] Report Final Report: Less than 100,000 colonies/mL (clinically insignificant growth based on current clinical standards) Organism (CLINICALLY INSIGNIFICANT GROWTH [facility] Urine, clean voided 08/23/2024 7:01 PM CDT 08/23/2024 8:52 PM CDT Narrative [facility] - 08/25/2024 8:02 AM CDT Indications for Culture:->Other (specify) Other Indication:->elevated creatinine Specimen received in a sterile container. Testing performed by [facility] ([phone]) us Kinga Jones NP LAB MICROBIOLOGY - GENERA L ORDERABLES Final Result Performing Organization Address [facility] de Phone Number [facility] Department [place] [address] * Immunotyping, serum with interpretation (08/23/2024 6:04 PM CDT) [facility] Immunosubtraction Please see comment Comment: NO PARAPROTEIN DETECTED Reviewed and signed by Fernando Nunez MD, PhD 08/24/2024 Blood 08/23/2024 6:04 PM CDT 08/23/2024 6:13 PM CDT us Hermelindo Butler MD LAB BLOOD ORDER ELANA Final Result Performing Organization Address [facility] [place] [address] * (ABNORMAL) eGFR (08/23/2024 6:04 PM CDT) [facility] eGFR 19(L) >=60 mL/min/1. 73 m2 Comment: [...] MD LAB BLOOD ORDER ELANA Final Result [facility] [place] [address] * (ABNORMAL) Differential, auto (08/23/2024 6:04 PM CDT) Neutrophil abs 6.5 1.5 - 6.5 K/cumm Imm gran abs 0.0 0.0 - 0.1 K/cumm [facility] Lymphocyte abs 0.7(L) 0.8 - 3.3 K/cumm [facility] Monocyte abs 0.6 0.2 - 0.8 K/cumm [facility] Eosinophil abs 0.6(H) 0.0 - 0.5 K/cumm [facility] Basophil abs 0.0 0.0 - 0.1 K/cumm [facility] Neutrophil pct 77.0 % [facility] Comment: Interpretive Data Percent cell count reference ranges are not reported, since discordance with absolute values may lead to misinterpretation of CBC data. Current Interpretive Data was last revised on 2017. Imm gran pct 0.5 % [facility] Comment: Interpretive Data Percent cell count reference ranges are not reported, since discordance with absolute values may lead to misinterpretation of CBC data. Current Interpretive Data was last revised on 2017. Lymphocyte pct 8.3 % [facility] Comment: Interpretive Data Percent cell count reference ranges are not reported, since discordance with absolute values may lead to misinterpretation of CBC data. Current Interpretive Data was last revised on 2017. Monocyte pct 7.3 % [facility] Comment: Interpretive Data Percent cell count reference ranges are not reported, since discordance with absolute values may lead to misinterpretation of CBC data. Current Interpretive Data was last revised on 2017. Eosinophil pct 6.5 % [facility] Comment: Interpretive Data Percent cell count reference ranges are not reported, since discordance with absolute values may lead to misinterpretation of CBC data. Current Interpretive Data was last revised on 2017. Basophil pct 0.4 % [facility] Comment: Interpretive Data Percent cell count reference ranges are not reported, since discordance with absolute values may lead to misinterpretation of CBC data. Current Interpretive Data was last revised on 2017. Blood 08/23/2024 6:04 PM CDT 08/23/2024 6:12 PM CDT Hermelindo Butler MD LAB BLOOD ORDER ELANA Final Result [facility] [place] [address] * (ABNORMAL) Immunoglobulin free light chains (08/23/2024 6:04 PM CDT) Rock/Lambda ratio [facility] <0.40 0.26 - 1.65 Comment: Interpretive Data The Binding Site FreeLite assay procedure was used. Results from different manufacturers or methods may not be comparable. Serial testing should be performed using the same methods and instrumentation. Current Interpretive Data was last revised on 2023. Rock free light chain [facility] <0.06(L) 0.33 - 1.94 mg/dL [facility] Comment: Interpretive Data The Binding Site FreeLite assay procedure was used. Results from different manufacturers or methods may not be comparable. Serial testing should be performed using the same methods and instrumentation. Current Interpretive Data was last revised on 2023. Lambda free light chain [facility] 0.15(L) 0.57 - 2.63 mg/dL [facility] Comment: Interpretive Data The Binding Site FreeLite assay procedure was used. Results from different manufacturers or methods may not be comparable. Serial testing should be performed using the same methods and instrumentation. Current Interpretive Data was last revised on 2023. Blood 08/23/2024 6:04 PM CDT 08/23/2024 6:12 PM CDT Hermelindo Butler MD LAB BLOOD ORDER ELANA Final Result [facility] [place] [address] * (ABNORMAL) CBC with auto differential (08/23/2024 6:04 PM CDT) WBC 8.5 3.8 - 9.9 K/cumm Hgb 11.8(L) 13.0 - 17.5 g/dL [facility] Hct 35.6(L) 38.9 - 50.3 % [facility] Plt 131(L) 150 - 400 K/cumm [facility] MPV 9.8 9.1 - 12.3 fL [facility] RBC 3.78(L) 4.30 - 5.80 M/cumm [facility] MCV 94.2 81.3 - 96.4 fL [facility] MCH 31.2 27.1 - 33.3 pg [facility] MCHC 33.1 32.3 - 35.7 g/dL [facility] RDW CV 15.2(H) 11.1 - 14.9 % [facility] RDW SD 51.2(H) 35.7 - 48.1 fL [facility] NRBC abs 0.00 0.00 - 0.01 K/cumm [facility] Blood 08/23/2024 6:04 PM CDT 08/23/2024 6:12 PM CDT Hermelindo Butler MD LAB BLOOD ORDER ELANA Final Result [facility] Department [place] [address] * (ABNORMAL) Uric acid (08/23/2024 6:04 PM CDT) [facility] Uric acid 9.5(H) 3.0 - 8.0 mg/dL Blood 08/23/2024 6:04 PM CDT 08/23/2024 6:13 PM CDT Hermelindo Butler MD LAB BLOOD ORDER ELANA Final Result Performing Organization Address City/[facility] Co de Phone Number [facility] [facility] [place] [address] * (ABNORMAL) Protein electrophoresis with reflex, serum with interpretation (08/23/2024 6:04 PM CDT) Pathologist [facility] Protein, sr 5.9(L) 6.2 - 8.2 g/dL Albumin 3.9 3.2 - 5.0 g/dL [facility] Alpha-1 globulin 0.4 0.2 - 0.4 g/dL [facility] Alpha-2 globulin 0.7 0.5 - 1.0 g/dL [facility] Beta-1 globulin 0.4 0.3 - 0.6 g/dL [facility] Beta-2 globulin 0.3 0.2 - 0.6 g/dL [facility] Gamma globulin 0.2(L) 0.5 - 1.7 g/dL [facility] SPEP interp Please see comment [facility] Comment: No apparent monoclonal peak Decreased gamma globulins Electrophoretic pattern appears similar to previous sample 08/04/24 See immunotyping for further information Reviewed and signed by Fernando Nunez MD, PhD 08/24/2024 Blood 08/23/2024 6:04 PM CDT 08/23/2024 6:13 PM CDT Hermelindo Butler MD LAB BLOOD ORDER ELANA Final Result Performing Organization Address City/[facility] Co de Phone Number [facility] [place] [address] * (ABNORMAL) Phosphorus (08/23/2024 6:04 PM CDT) Pathologist [facility] Phosphorus, pl 4.7(H) 2.3 - 4.5 mg/dL Blood 08/23/2024 6:04 PM CDT 08/23/2024 6:13 PM CDT Hermelindo Butler MD LAB BLOOD ORDER ELANA Final Result Performing Organization Address City/[facility] Co de Phone Number [facility] [place] [address] * Magnesium (08/23/2024 6:04 PM CDT) [facility] Magnesium 1.9 1.4 - 2.5 mg/dL Blood 08/23/2024 6:04 PM CDT 08/23/2024 6:13 PM CDT Hermelindo Butler MD LAB BLOOD ORDER ELANA Final Result Performing Organization Address City/[facility] Co de Phone Number [facility] [place] [address] * Lactate dehydrogenase (LD) (08/23/2024 6:04 PM CDT) Pathologist [facility] Lactate dehydrogenase (LDH) 198 100 - 250 Units/L Blood 08/23/2024 6:04 PM CDT 08/23/2024 6:13 PM CDT us Hermelindo Butler MD LAB BLOOD ORDER ELANA Final Result Performing Organization Address [facility] de Phone Number [facility] [place] [address] * (ABNORMAL) IgA (08/23/2024 6:04 PM CDT) Pathologist [facility] Immunoglobulin A <50(L) 70 - 400 mg/dL Blood 08/23/2024 6:04 PM CDT 08/23/2024 6:13 PM CDT us Hermelindo Butler MD LAB BLOOD ORDER ELANA Final Result Performing Organization Address [facility] de Phone Number [facility] Department [place] [address] * (ABNORMAL) IgM (08/23/2024 6:04 PM CDT) Pathologist [facility] Immunoglobulin M <25(L) 40 - 230 mg/dL Blood 08/23/2024 6:04 PM CDT 08/23/2024 6:13 PM CDT us Hermelindo Butler MD LAB BLOOD ORDER ELANA Final Result Performing Organization Address [facility] de Phone Number [facility] [place] [address] * (ABNORMAL) IgG (08/23/2024 6:04 PM CDT) Pathologist [facility] Immunoglobulin G <300(L) 700 - 1,600 mg/dL Blood 08/23/2024 6:04 PM CDT 08/23/2024 6:13 PM CDT us Hermelindo Butler MD LAB BLOOD ORDER ELANA Final Result [facility] Department [place] [address] * (ABNORMAL) Comprehensive metabolic panel (08/23/2024 6:04 PM CDT) Sodium 146(H) 135 - 145 mmol/L Potassium, pl 3.8 3.3 - 4.9 mmol/L [facility] Chloride 107 97 - 110 mmol/L [facility] CO2 26 22 - 32 mmol/L [facility] Anion gap 13 2 - 15 mmol/L [facility] BUN 58(H) 6 - 25 mg/dL [facility] Creatinine 3.37(H) 0.80 - 1.30 mg/dL [facility] Glucose 89 70 - 199 mg/dL [facility] Comment: Interpretive Data Fasting glucose >/= [...] 2022. Calcium 8.9 8.5 - 10.3 mg/dL [facility] Bilirubin, total 0.4 0.1 - 1.2 mg/dL [facility] Protein, pl 6.2(L) 6.5 - 8.5 g/dL [facility] Albumin 4.0 3.5 - 5.0 g/dL [facility] Alk phos 68 40 - 130 Units/L [facility] ALT 16 7 - 55 Units/L [facility] AST 12 10 - 50 Units/L [facility] Blood 08/23/2024 6:04 PM CDT 08/23/2024 6:13 PM CDT Hermelindo Butler MD LAB BLOOD ORDER ELANA Final Result [facility] Department [place] [address] * SCAN - LABS (08/20/2024) us Provider Scanning Final Result * SCAN - LABS (08/10/2024) us Provider Scanning Final Result * US Kidney Complete (08/06/2024 2:42 PM [employer]) Anatomical Region Laterality Modality Kidney N/A Ultrasound 08/06/2024 3:27 PM [employer] Impressions 08/06/2024 3:27 PM [employer] 1. Mild nephromegaly with mild to moderate hydronephrosis bilaterally. 2. Incomplete bladder emptying with post void bladder residual of 397 mL. Electronically signed by: Dylan Tinajero M.D. Narrative 08/06/2024 3:27 PM [employer] EXAMINATION: COMPLETE RENAL SONOGRAM HISTORY: Rising creatinine. [...] Urinalysis reflex to microscopic (08/06/2024 9:19 AM [employer]) Color, ur Straw Yellow Clarity, ur Clear Clear [facility] Specific gravity, ur 1.013 1.003 - 1.030 [facility] pH, urine 5.5 [facility] Comment: Interpretive Data U rine pH is affected by diet, medications, systemic acid-base disturbances, and renal tubular function. pH may affect urinary stone formation. For example, urine pH below 6.0 may help reduce the tendency for calcium phosphate stones and pH greater than 6.0 may reduce the tendency for uric acid stone formation. Source: [facility] Current Interpretive Data was last revised on 2017 Protein, ur ql Negative Negative [facility] Glucose, ur ql Negative Negative [facility] Ketones, ur Negative Negative [facility] Bilirubin, ur Negative Negative [facility] Blood, ur 3+(A) Negative [facility] Urobilinogen, ur <2.0 <2.0 mg/dL [facility] Nitrite, ur Negative Negative [facility] Leukocyte esterase, ur Trace(A) [facility] UA reflex comment Reflex to microscopic UA will be performed. [facility] Urine 08/06/2024 9:19 AM [employer] 08/06/2024 9:19 AM [employer] Lyndsey Fagan NP LAB URINE ORDERABLES [place] nicole Result [facility] Department [place] [address] * Protein / creatinine ratio, urine, random (08/06/2024 9:19 AM [employer]) [facility] Protein, ur, quant 7.9 mg/dL Comment: Interpretive Data No reference range established. Current interpretive data was last revised 2018. Creatinine Ur 77.4 mg/dL [facility] Comment: Interpretive Data No reference range established. Current interpretive data was last revised 2018. Protein/creatinin e ratio 102.1 0.0 - 180.0 mg/g CR [facility] Urine 08/06/2024 9:19 AM [employer] 08/06/2024 9:41 AM [employer] Lyndsey Fagan NP LAB URINE ORDERABLES [place] l Result Performing Organization Address [facility] de Phone Number [facility] Department [place] [address] * (ABNORMAL) Urinalysis, microscopic only (08/06/2024 9:19 AM [employer]) [facility] WBC, ur 6-10(A) 0 - 5 /HPF RBC, ur 21-50(A) 0 - 2 /HPF [facility] Bacteria, ur Trace(A) [facility] Mucous, ur Present(A) [facility] Urine 08/06/2024 9:19 AM [employer] 08/06/2024 9:19 AM [employer] Lyndsey Fagan [employer]ELOPER LAB URINE ORDERABLES [place] l Result Performing Organization Address City/[facility] Co de Phone Number [facility] Department [place] [address] * (ABNORMAL) eGFR (08/06/2024 7:43 AM [employer]) [facility] eGFR 31(L) >=60 mL/min/1. 73 m2 [...] last reviewed 2021. Blood 08/06/2024 7:43 AM [employer] 08/06/2024 7:52 AM [employer] us Hermelindo Butler MD LAB BLOOD ORDER ELANA Final Result [facility] Department [place] [address] * (ABNORMAL) Differential, auto (08/06/2024 7:43 AM [employer]) Neutrophil abs 5.4 1.5 - 6.5 K/cumm Comment:Testing performed by : [facility], [address] [place], [place] [phone] Lymphocyte abs 0.8 0.8 - 3.3 K/cumm [facility] Comment:Testing performed by : [facility], [address] [place] [phone] Monocyte abs 0.5 0.2 - 0.8 K/cumm [facility] Comment:Testing performed by : [facility], [address] [place] [phone] Eosinophil abs 0.7(H) 0.0 - 0.5 K/cumm [facility] Comment:Testing performed by : [facility], [address] [place] [phone] Basophil abs 0.0 0.0 - 0.1 K/cumm [facility] Comment:Testing performed by : [facility], [address] [place] [phone] Neutrophil pct 72.4 % [facility] Comment: Interpretive Data Percent cell count reference ranges are not reported, since discordance with absolute values may lead to misinterpretation of CBC data. Current Interpretive Data was last revised on 2017. Testing performed by: [facility], [address] [place] [phone] Lymphocyte pct 10.4 % [facility] Comment: Interpretive Data Percent cell count reference ranges are not reported, since discordance with absolute values may lead to misinterpretation of CBC data. Current Interpretive Data was last revised on 2017. Testing performed by: [facility], [address] [place] [phone] Monocyte pct 7.3 % [facility] Comment: Interpretive Data Percent cell count reference ranges are not reported, since discordance with absolute values may lead to misinterpretation of CBC data. Current Interpretive Data was last revised on 2017. Testing performed by: [facility], [address] [place] [phone] Eosinophil pct 9.4 % [facility] Comment: Interpretive Data Percent cell count reference ranges are not reported, since discordance with absolute values may lead to misinterpretation of CBC data. Current Interpretive Data was last revised on 2017. Testing performed by: [facility], [address] [place] [phone] Basophil pct 0.5 % [facility] Comment: Interpretive Data Percent cell count reference ranges are not reported, since discordance with absolute values may lead to misinterpretation of CBC data. Current Interpretive Data was last revised on 2017. Testing performed by: [facility], [address] [place] [phone] Blood 08/06/2024 7:43 AM [employer] 08/06/2024 7:51 AM [employer] Hermelindo Butler MD LAB BLOOD ORDER ELANA Final Result [facility] Department [place] [address] * (ABNORMAL) CBC with auto differential (08/06/2024 7:43 AM [employer]) WBC 7.5 3.8 - 9.9 K/cumm Comment:Testing performed by : [facility], [address] [place] [address] Hgb 13.7 13.0 - 17.5 g/dL [facility] Comment:Testing performed by : [facility], [address] [place] [address] Hct 40.6 38.9 - 50.3 % [facility] Comment:Testing performed by : [facility], [address] [place] [address] Plt 169 150 - 400 K/cumm [facility] Comment:Testing performed by : [facility], [address] [place] [address] MPV 7.5 6.8 - 10.4 fL [facility] Comment:Testing performed by : [facility], [address] [place] [address] RBC 4.37 4.30 - 5.80 M/cumm [facility] Comment:Testing performed by : [facility], [address] [place] [address] MCV 92.7 81.3 - 96.4 fL [facility] Comment:Testing performed by : [facility], [address] [place] [address] MCH 31.3 27.1 - 33.3 pg [facility] Comment:Testing performed by : [facility], [address] [place] [address] MCHC 33.8 32.3 - 35.7 g/dL [facility] Comment:Testing performed by : [facility], [address] [place] [address] RDW CV 16.5(H) 11.1 - 14.9 % [facility] Comment:Testing performed by : [facility], [address] [place] [phone] NRBC abs 0.00 0.00 - 0.01 K/cumm [facility] Comment:Testing performed by : [facility], [address] [place] [phone] Blood 08/06/2024 7:43 AM [employer] 08/06/2024 7:51 AM [employer] Hermelindo Butler MD LAB BLOOD ORDER ELANA Final Result Performing Organization Address [facility] Co de Phone Number [facility] [place] [address] * (ABNORMAL) PSA diagnostic (08/06/2024 7:43 AM [employer]) PSA-Total 6.28(H) <=6.20 ng/mL Comment: Interpretive Data [...] last revised 21. Blood 08/06/2024 7:43 AM [employer] 08/06/2024 7:52 AM [employer] Hermelindo Butler MD LAB BLOOD ORDER ELANA Final Result Performing Organization Address [facility] de Phone Number [facility] [place] [address] * Lactate dehydrogenase (LD) (08/06/2024 7:43 AM [employer]) Lactate dehydrogenase (LDH) 161 100 - 250 Units/L Blood 08/06/2024 7:43 AM [employer] 08/06/2024 7:52 AM [employer] us Hermelindo Butler MD LAB BLOOD ORDER ELANA Final Result [facility] Department [place] [address] * (ABNORMAL) Lipid panel (08/06/2024 7:43 AM [employer]) Cholesterol 128 30 - 199 mg/dL Comment: [...] revised on 2018. Triglycerides 149 <=149 mg/dL [facility] Comment: Interpretive Data Ages < [...] on 2018. HDL 38(L) >=40 mg/dL [facility] Comment: Interpretive Data Ages < [...] 2018. LDL, calculated 64 <=129 mg/dL [facility] Comment: Interpretive Data Ages < [...] revised on 2024. Non-HDL Cholesterol 90 mg/dL [facility] Comment: Interpretive Data Ages < or [...] last revised on 2018. Chol/HDL ratio 3 [facility] Blood 08/06/2024 7:43 AM [employer] 08/06/2024 7:52 AM [employer] Hermelindo Butler MD LAB BLOOD ORDER ELANA Final Result [facility] Department [place] [address] * (ABNORMAL) Comprehensive metabolic panel (08/06/2024 7:43 AM [employer]) Sodium 145 135 - 145 mmol/L Potassium, pl 4.2 3.3 - 4.9 mmol/L [facility] Chloride 108 97 - 110 mmol/L [facility] CO2 30 22 - 32 mmol/L [facility] Anion gap 7 2 - 15 mmol/L [facility] BUN 51(H) 6 - 25 mg/dL [facility] Creatinine 2.21(H) 0.80 - 1.30 mg/dL [facility] Glucose 113 70 - 199 mg/dL [facility] Comment: Interpretive Data Fasting glucose >/= [...] Calcium 9.2 8.5 - 10.3 mg/dL [facility] Bilirubin, total 0.5 0.1 - 1.2 mg/dL [facility] Protein, pl 6.2(L) 6.5 - 8.5 g/dL [facility] Albumin 4.1 3.5 - 5.0 g/dL [facility] Alk phos 61 40 - 130 Units/L [facility] ALT 15 7 - 55 Units/L [facility] AST 16 10 - 50 Units/L [facility] Blood 08/06/2024 7:43 AM [employer] 08/06/2024 7:52 AM [employer] Hermelindo Butler MD LAB BLOOD ORDER ELANA Final Result Performing Organization Address City/[facility] de Phone Number [facility] [place] [address] * aPTT (08/03/2024 9:21 AM [employer]) aPTT 31 28 - 38 sec Comment: Interpretive Data Heparin therapeutic range: 66.0 - 100.0 seconds. Range based on correlation with therapeutic heparin activity range of 0.3 - 0.7 Units/mL. Current interpretive data was last revised on 2023. Blood 08/03/2024 9:21 AM [employer] 08/03/2024 9:47 AM [employer] Hermelindo Butler MD LAB BLOOD ORDER ELANA Final Result Performing Organization Address [facility] [place] [address] * Protime-INR (08/03/2024 9:21 AM [employer]) PT 11.5 9.7 - 13.0 sec INR 1.06 0.90 - 1.20 [facility] Comment: Interpretive data Oral anticoagulant therapeutic ranges: Venous thromboembolism prophylaxis or treatment: 2.0-3.0 CARDIOLOGY Standard range: 2.0-3.0 High-intensity range: 2.5-3.5 Refer to indication-specific guidelines for appropriate target ranges for prosthetic heart valve replacement. Current interpretive data was last revised on 2019. Blood 08/03/2024 9:21 AM [employer] 08/03/2024 9:47 AM [employer] us Hermelindo Butler MD LAB BLOOD ORDER ELANA Final Result Performing Organization Address [facility] de Phone Number [facility] [place] [address] * Immunotyping, serum with interpretation (08/03/2024 7:40 AM [employer]) Pathologist [facility] Immunosubtraction Please see comment Comment: NO PARAPROTEIN DETECTED Reviewed and signed by Hermelindo Mcnulty MD 08/04/2024 Blood 08/03/2024 7:40 AM [employer] 08/03/2024 8:24 AM [employer] Hermelindo Butler MD LAB BLOOD ORDER ELANA Final Result Performing Organization Address City/[facility] Co de Phone Number [facility] [place] [address] * (ABNORMAL) eGFR (08/03/2024 7:40 AM [employer]) [facility] eGFR 37(L) >=60 mL/min/1. 73 m2 [...] last reviewed 2021. Blood 08/03/2024 7:40 AM [employer] 08/03/2024 7:49 AM [employer] Hermelindo Butler MD LAB BLOOD ORDER ELANA Final Result Performing Organization Address City/[facility]/ZIP Co de Phone Number [facility] Department [place] [address] * (ABNORMAL) Differential, auto (08/03/2024 7:40 AM [employer]) Neutrophil abs 5.6 1.5 - 6.5 K/cumm Comment:Testing performed by : [facility], [address] [place] [phone] Lymphocyte abs 0.9 0.8 - 3.3 K/cumm [facility] Comment:Testing performed by : [facility], [address] [place] [phone] Monocyte abs 0.6 0.2 - 0.8 K/cumm [facility] Comment:Testing performed by : [facility], [address] [place], [place] [id number] Eosinophil abs 0.8(H) 0.0 - 0.5 K/cumm [facility] Comment:Testing performed by : [facility], [address] [place] [phone] Basophil abs 0.0 0.0 - 0.1 K/cumm [facility] Comment:Testing performed by : [facility], [address] [place] [phone] Neutrophil pct 70.4 % [facility] Comment: Interpretive Data Percent cell count reference ranges are not reported, since discordance with absolute values may lead to misinterpretation of CBC data. Current Interpretive Data was last revised on 2017. Testing performed by: [facility], [address] [place] [phone] Lymphocyte pct 11.2 % [facility] Comment: Interpretive Data Percent cell count reference ranges are not reported, since discordance with absolute values may lead to misinterpretation of CBC data. Current Interpretive Data was last revised on 2017. Testing performed by: [facility], [address] [place] [phone] Monocyte pct 7.7 % [facility] Comment: Interpretive Data Percent cell count reference ranges are not reported, since discordance with absolute values may lead to misinterpretation of CBC data. Current Interpretive Data was last revised on 2017. Testing performed by: [facility], [address] [place] [address] [place] [phone] Eosinophil pct 10.1 % [facility] Comment: Interpretive Data Percent cell count reference ranges are not reported, since discordance with absolute values may lead to misinterpretation of CBC data. Current Interpretive Data was last revised on 2017. Testing performed by: [facility], [address] [place] [phone] Basophil pct 0.6 % [facility] Comment: Interpretive Data Percent cell count reference ranges are not reported, since discordance with absolute values may lead to misinterpretation of CBC data. Current Interpretive Data was last revised on 2017. Testing performed by: [facility], [address] [place] [phone] Blood 08/03/2024 7:40 AM [employer] 08/03/2024 7:47 AM [employer] Hermelindo Butler MD LAB BLOOD ORDER ELANA Final Result [facility] [place] [address] * (ABNORMAL) Immunoglobulin free light chains (08/03/2024 7:40 AM [employer]) Rock/Lambda ratio [facility] See Comment 0.26 - 1.65 Comment: Unable to calculate exact result. Interpretive Data The Binding Site FreeLite assay procedure was used. Results from different manufacturers or methods may not be comparable. Serial testing should be performed using the same methods and instrumentation. Current Interpretive Data was last revised on 2023. Rock free light chain BJH <0.06(L) 0.33 - [...] revised on 2023. Blood 08/03/2024 7:40 AM PROPELLER DRIVEN AIRPLANE MECHANIC 08/03/2024 8:24 AM PROPELLER DRIVEN AIRPLANE MECHANIC Hermelindo Butler MD LAB BLOOD ORDER ELANA Final Result [facility] [place] [address] * (ABNORMAL) CBC with auto differential (08/03/2024 7:40 AM PROPELLER DRIVEN AIRPLANE MECHANIC) WBC 7.9 3.8 - 9.9 K/cumm Comment:Testing performed by : [facility], [address] [place] [address] Hgb 13.7 13.0 - 17.5 g/dL CERNER BJ Comment:Testing performed by : [facility], [address] [place] [address] Hct 41.5 38.9 - 50.3 % CERNER BJ Comment:Testing performed by : [facility], [address] [place] [address] Plt 163 150 - 400 K/cumm CERNER BJ Comment:Testing performed by : [facility], [address] [place] [address] MPV 7.8 6.8 - 10.4 fL CERNER BJ Comment:Testing performed by : [facility], [address] [place] [address] RBC 4.50 4.30 - 5.80 M/cumm CERNER BJ Comment:Testing performed by : [facility], [address] [place] [address] MCV 92.1 81.3 - 96.4 fL CERNER BJ Comment:Testing performed by : [facility], [address] [place] [phone] MCH 30.4 27.1 - 33.3 pg MT SUAREZ Comment:Testing performed by : [facility], [address] [place], [place] [id number] MCHC 33.0 32.3 - 35.7 g/dL MT SUAREZ Comment:Testing performed by : [facility], [address] [place], [place] [phone] RDW CV 16.6(H) 11.1 - 14.9 % MT SUAREZ Comment:Testing performed by : [facility], [address] [place], [place] [phone] NRBC abs 0.00 0.00 - 0.01 K/cumm MT SUAREZ Comment:Testing performed by : [facility], [address] [place], [place] [phone] Blood 08/03/2024 7:40 AM PROPELLER DRIVEN AIRPLANE MECHANIC 08/03/2024 7:47 AM PROPELLER DRIVEN AIRPLANE MECHANIC Hermelindo Butler MD LAB BLOOD ORDER ELANA Final Result [facility] [place] [address] * (ABNORMAL) Protein electrophoresis with reflex, serum with interpretation (08/03/2024 7:40 AM PROPELLER DRIVEN AIRPLANE MECHANIC) Protein, sr 5.7(L) 6.2 - 8.2 g/dL Albumin 3.8 3.2 - 5.0 g/dL [facility] Alpha-1 globulin 0.3 0.2 - 0.4 g/dL [facility] Alpha-2 globulin 0.6 0.5 - 1.0 g/dL [facility] Beta-1 globulin 0.4 0.3 - 0.6 g/dL [facility] Beta-2 globulin 0.3 0.2 - 0.6 g/dL [facility] Gamma globulin 0.2(L) 0.5 - 1.7 g/dL [facility] SPEP interp Please see comment MT SUAREZ Comment: No apparent monoclonal peak Decreased gamma globulins Electrophoretic pattern appears similar to previous sample 07/14/24 *See immunotyping for further information Reviewed and signed by Hermelindo Mcnulty MD 08/04/2024 Blood 08/03/2024 7:40 AM PROPELLER DRIVEN AIRPLANE MECHANIC 08/03/2024 8:24 AM PROPELLER DRIVEN AIRPLANE MECHANIC Hermelindo Butler MD LAB BLOOD ORDER ELANA Final Result Performing Organization Address [facility] Co de Phone Number [facility] [place] [address] * Magnesium (08/03/2024 7:40 AM PROPELLER DRIVEN AIRPLANE MECHANIC) [facility] Magnesium 2.2 1.4 - 2.5 mg/dL Blood 08/03/2024 7:40 AM PROPELLER DRIVEN AIRPLANE MECHANIC 08/03/2024 9:36 AM PROPELLER DRIVEN AIRPLANE MECHANIC Hermelindo Butler MD LAB BLOOD ORDER ELANA Final Result Performing Organization Address [facility] de Phone Number [facility] [place] [address] * Lactate dehydrogenase (LD) (08/03/2024 7:40 AM PROPELLER DRIVEN AIRPLANE MECHANIC) [facility] Lactate dehydrogenase (LDH) 172 100 - 250 Units/L Blood 08/03/2024 7:40 AM PROPELLER DRIVEN AIRPLANE MECHANIC 08/03/2024 7:49 AM PROPELLER DRIVEN AIRPLANE MECHANIC Hermelindo Butler MD LAB BLOOD ORDER ELANA Final Result Performing Organization Address [facility] de Phone Number [facility] [place] [address] * (ABNORMAL) Hemoglobin A1c (08/03/2024 7:40 AM PROPELLER DRIVEN AIRPLANE MECHANIC) Hgb A1C 5.8(H) 4.0 - 5.6 % Estimated Average Glucose 120 mg/dL [facility] Comment: The ADA recommends reporting an estimated Average Glucose (eAG) with all Hemoglobin A1c results using the equation derived from a study of 507 normal and diabetic adults. Minority populations were underrepresented and children were not included. (Diabetes Care 2020; 43(S1): S66-S76). The eAG is not equivalent to a fasting glucose. Blood 08/03/2024 7:40 AM PROPELLER DRIVEN AIRPLANE MECHANIC 08/03/2024 7:49 AM PROPELLER DRIVEN AIRPLANE MECHANIC Lyndsey Fagan NP LAB BLOOD ORDERABLES Angeles l Result [facility] [place] [address] * Gamma GT (08/03/2024 7:40 AM PROPELLER DRIVEN AIRPLANE MECHANIC) GGT 23 10 - 50 Units/L Blood 08/03/2024 7:40 AM PROPELLER DRIVEN AIRPLANE MECHANIC 08/03/2024 9:36 AM PROPELLER DRIVEN AIRPLANE MECHANIC Hermelindo Butler MD LAB BLOOD ORDER ELANA Final Result Performing Organization Address [facility] Co de Phone Number [facility] [place] [address] * (ABNORMAL) IgA (08/03/2024 7:40 AM PROPELLER DRIVEN AIRPLANE MECHANIC) Immunoglobulin A <50(L) 70 - 400 mg/dL Blood 08/03/2024 7:40 AM PROPELLER DRIVEN AIRPLANE MECHANIC 08/03/2024 8:09 AM PROPELLER DRIVEN AIRPLANE MECHANIC Hermelindo Butler MD LAB BLOOD ORDER ELANA Final Result Performing Organization Address City/[facility]/ZIP Co de Phone Number [facility] [place] [address] * (ABNORMAL) IgM (08/03/2024 7:40 AM PROPELLER DRIVEN AIRPLANE MECHANIC) [facility] Immunoglobulin M <25(L) 40 - 230 mg/dL Blood 08/03/2024 7:40 AM PROPELLER DRIVEN AIRPLANE MECHANIC 08/03/2024 8:09 AM PROPELLER DRIVEN AIRPLANE MECHANIC Hermelindo Butler MD LAB BLOOD ORDER ELANA Final Result Performing Organization Address City/[facility] Co de Phone Number [facility] Department [place] [address] * (ABNORMAL) IgG (08/03/2024 7:40 AM PROPELLER DRIVEN AIRPLANE MECHANIC) [facility] Immunoglobulin G <300(L) 700 - 1,600 mg/dL Blood 08/03/2024 7:40 AM PROPELLER DRIVEN AIRPLANE MECHANIC 08/03/2024 8:09 AM PROPELLER DRIVEN AIRPLANE MECHANIC Hermelindo Butler MD LAB BLOOD ORDER ELANA Final Result Performing Organization Address [facility] de Phone Number [facility] Department [place] [address] * (ABNORMAL) Comprehensive metabolic panel (08/03/2024 7:40 AM PROPELLER DRIVEN AIRPLANE MECHANIC) [facility] Sodium 141 135 - 145 mmol/L Potassium, pl 4.0 3.3 - 4.9 mmol/L [facility] Chloride 104 97 - 110 mmol/L [facility] CO2 30 22 - 32 mmol/L [facility] Anion gap 7 2 - 15 mmol/L [facility] BUN 47(H) 6 - 25 mg/dL [facility] Creatinine 1.92(H) 0.80 - 1.30 mg/dL [facility] Glucose 116 70 - 199 mg/dL [facility] Comment: Interpretive Data Fasting glucose >/= [...] Calcium 9.2 8.5 - 10.3 mg/dL [facility] Bilirubin, total 0.7 0.1 - 1.2 mg/dL CERNER BJ Protein, pl 6.2(L) 6.5 - 8.5 g/dL [facility] Albumin 3.9 3.5 - 5.0 g/dL [facility] Alk phos 63 40 - 130 Units/L [facility] ALT 15 7 - 55 Units/L [facility] AST 17 10 - 50 Units/L CERNER BJ Blood 08/03/2024 7:40 AM PROPELLER DRIVEN AIRPLANE MECHANIC 08/03/2024 7:49 AM PROPELLER DRIVEN AIRPLANE MECHANIC Hermelindo Butler MD LAB BLOOD ORDER ELANA Final Result [facility] [place] [address] * (ABNORMAL) Urinalysis reflex to microscopic and culture Urine, clean voided (08/03/2024 7:30 AM PROPELLER DRIVEN AIRPLANE MECHANIC) Color, ur Straw Yellow Clarity, ur Clear Clear [facility] Specific gravity, ur 1.012 1.003 - 1.030 [facility] pH, urine 5.5 [facility] Comment: Interpretive Data U rine pH is affected by diet, medications, systemic acid-base disturbances, and renal tubular function. pH may affect urinary stone formation. For example, urine pH below 6.0 may help reduce the tendency for calcium phosphate stones and pH greater than 6.0 may reduce the tendency for uric acid stone formation. Source: [employer] Current Interpretive Data was last revised on 2017 Protein, ur ql Negative Negative CERNER BJ Glucose, ur ql Negative Negative [facility] Ketones, ur Negative Negative [facility] Bilirubin, ur Negative Negative [facility] Blood, ur 2+(A) Negative [facility] Urobilinogen, ur <2.0 <2.0 mg/dL [facility] Nitrite, ur Negative Negative [facility] Leukocyte esterase, ur Negative [facility] UA reflex comment Reflex to microscopic UA will be performed. [facility] Urine, clean voided 08/03/2024 7:30 AM PROPELLER DRIVEN AIRPLANE MECHANIC 08/03/2024 7:30 AM PROPELLER DRIVEN AIRPLANE MECHANIC Lyndsey Fagan LAB MICROBIOLOGY - GENERA L ORDERABLES Final Result Performing Organization Address [facility] de Phone Number [facility] Department [place] [address] * (ABNORMAL) Urinalysis, microscopic only (08/03/2024 7:30 AM PROPELLER DRIVEN AIRPLANE MECHANIC) WBC, ur 6-10(A) 0 - 5 /HPF RBC, ur 11-20(A) 0 - 2 /HPF [facility] Epithelial cells, squamous, ur 1-5 0 - 5 /HPF [facility] Bacteria, ur Trace(A) [facility] Culture Reflex Comment Reflex conditions for urine culture (WBC >10) not met. [facility] Urine, clean voided 08/03/2024 7:30 AM PROPELLER DRIVEN AIRPLANE MECHANIC 08/03/2024 7:30 AM PROPELLER DRIVEN AIRPLANE MECHANIC Lyndsey Fagan SYSTEM SUPPORT DEVELOPER LAB URINE ORDERABLES Angeles l Result Performing Organization Address [facility] Co de Phone Number [facility] Department [place] [address] * Urine culture Urine, clean voided (08/03/2024 7:30 AM PROPELLER DRIVEN AIRPLANE MECHANIC) Report Final Report: No growth Urine, clean voided 08/03/2024 7:30 AM PROPELLER DRIVEN AIRPLANE MECHANIC 08/03/2024 9:59 AM PROPELLER DRIVEN AIRPLANE MECHANIC Narrative [facility] - 08/04/2024 11:14 AM PROPELLER DRIVEN AIRPLANE MECHANIC Testing performed by [facility] Microbiology Laboratory ([phone]) us Hermelindo Butler MD LAB MICROBIOLOG Y - GENERAL ORDERABLES Final Result Performing Organization Address City/[facility] Co de Phone Number [facility] Department [place] [address] * Hepatitis C antibody (10/16/2021 9:50 AM CDT) Hep C Ab Nonreactive Nonreactive [facility] Comment:Antibodies to HCV no t detected. Does NOT exclude the possibility of recent exposure to HCV. Blood 10/16/2021 9:50 AM CDT 10/16/2021 11:22 AM CDT Hermelindo dupree MD LAB MICROBIOLOGY - GENERAL ORDERABLES Edited Result - Final Performing Organization Address [facility] de Phone Number [facility] [place] [address] from Last 3 Months or Most Recently Relevant to Health Maintenance Insurance MEDICARE [employer] SENIOR SUPPLEMENT MEDICARE [facility] SENIOR SUPPLEMENT MEDICARE AET SENIOR SUPPLEMENT Advance Directives For more information, please contact: [phone] Documents on File Type Date Recorded Patient Tray Line Supervisor Expl anation ADVANCE DIRECTIVE 11/29/2017 11:05 AM FOX R OF METALLURGICAL OR MATERIALS TECHNICIAN ADVANCE DIRECTIVE 11/12/2017 3:59 PM POWER OF METALLURGICAL OR MATERIALS TECHNICIAN * Full Code (Latest Code Status [...] 2:28 PM 05/31/2021 2:39 PM Care Teams Seasoning Sprayer Relationship Specialty Start Date End Date Jatin Gamble MD [address] [place] [address] PCP - General 10/07/16 Hermelindo Butler MD [address] [place], [place] [id number] Medical Oncologist/Hematologi Medical Oncology 12/02/17 Roberto Rojo MD [address] [place] [address] [facility] Oncology 12/02/17 Jatin Gamble MD [address] [place], [place] [id number] Referring Physician Internal Medicine 12/02/17 Lyndsey Fagan NP [address] [place] [address] Nurse Practitioner Medical Oncology 08/03/20 Erlin Servin MD [address] [place] [address] [place] [address] Consulting Physician Otolaryngology 10/04/22 [place] [address] [address] Consulting Physician Urology 05/28/23 Salvador Norris MD [facility] [id number] [place] [address] Consulting Physician Infectious Diseases 09/15/24 Miscellaneous, Not In File 09/15/24
--- OUTSIDE RECORDS SUMMARY | 2024-10-30 07:36 | XMS_ITS | Encounter Summary ---
Author Organization [facility] Healthcare Address [address] [place] [address] Care Team Providers Care Bi Lead Name Role Phone Jatin Gamble MD Primary Care Provider Hermelindo Butler MD Unavailable Roberto Rojo MD Unavailable Jatin Gamble MD Unavailable Garry Dukes MD Unavailable [phone] Lyndsey Fagan NP Unavailable Erlin Servin MD Unavailable Julian Valdez MD Unavailable Salvador Norris MD Unavailable Miscellaneous, Not In File Unavailable Unava ilable Encounter Details Date Type Department Care Team (Late st Contact Info) Description 04/29/2022 Community Orders [facility] EpicCare Link Jatin Gamble MD [address] [place] [address] Elevated prostate specific antigen (PSA) (Primary Dx) Social History Tobacco Use Types Packs/Day Years Used Date Smoking Tobacco: Never Smokeless Tobacco: Never Alcohol Use Standard Drinks/Week Comments No 0 (1 standard drink = 0.6 oz pur e alcohol) Sex and Gender Information Value Date Recorded Sex Assigned at Not on file 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 Gender Identity Not on file Sexual Orientation Not on file documented as of this encounter Plan of Treatment Upcoming Encounters Date Type Department Care Team (Latest Contact Info) Description 12/16/2024 10:15 AM CDT Hospital Encounter [facility] Operating Room [address] [place] [phone] [place] [address] [place] [phone] 12/16/2024 10:15 AM CDT - 12/16/2024 12:15 PM CDT Surgery [facility] Operating Room [address] [place] [phone] [place] [address] [place] [address] Cystoscopy, Bilateral Retrograde Pyelograms Scheduled Procedures Name [...] Diagnosis Elevated prostate specific antigen (PSA)- Primary Enlarged prostate with urinary obstruction Hypertrophy of prostate with urinary obstruction and other lower urinary tract symptoms (LUTS) Bladder stone Other calculus in bladder documented in this encounter Additional Health Concerns Infection Onset Date Last Indicated Resolved Time COVID: Suspected 12/16/2023 12/16/2023 12/16/2023 10:59 AM CDT Rhino/Enterovirus 12/16/2023 12/16/2023 12/23/2023 3:05 AM CDT documented as of this encounter Care Teams Bi Lead Relationship Specialty Start Date End Date Jatin Gamble MD [address] [place] [address] PCP - General 10/07/16 Hermelindo Butler MD [address] [place], [place] [phone] Medical Oncologist/Hematologi Medical Oncology 12/02/17 Roberto Rojo MD [address] [place] [address] Medical Oncologist/Hematologi Hematology and Oncology 12/02/17 Jatin Gambel MD [address] [place], [place] [phone] Referring Physician Internal Medicine 12/02/17 Garry Dukes MD [address] [place] [address] Referring Physician Urology 12/02/17 05/27/23 Lyndsey Fagan NP [address] [place] [address] Nurse Practitioner Medical Oncology 08/03/20 Erlin Servin MD [address] [place] [address] [place] [address] Consulting Physician Otolaryngology 10/04/22 [place] [address] [place] [address] Consulting Physician Urology 05/28/23 Salvador Norris MD [facility] [address] [place] [address] Consulting Physician Infectious Diseases 09/15/24 Miscellaneous, Not In File 09/15/24 documented as of this encounter
[2024-10-30 07:40] LABS: Add Urine Microscopic? YES; Appearance Urine Clear (Clear); Bilirubin Urine Negative (Negative); Blood Urine 1+ (Negative); Color Urine Light Yellow (Yellow); Glucose Urine UA Negative (Negative); Ketones Urine Negative (Negative); Leukocyte Esterase Ur Negative (Negative); Nitrate Urine Negative (Negative); Protein Urine Negative (Negative); Urobilinogen Urine 0.2 mg/dL (0.2-1.0)
[2024-10-30 07:45] LABS: Bacteria Urine Trace /hpf; RBC Urine 0-2 /hpf (0-2); WBC Urine None seen /hpf (0-3)
== END 2024-10-30 07:32 | disposition home or self-care (01) ==
LOC: CHSLAB 07:32
PROVIDERS: PCP Internal Medicine; Visit Provider Internal Medicine
DX: N39.0 Urinary tract infection, site not specified (principal)
CPT/HCPCS: 81001; 87086

== ENCOUNTER 2025-01-27 07:40 | Outpatient (CLI) | payer MEDICARE, SELFPAY ==
--- OUTSIDE RECORDS SUMMARY | 2021-08-03 09:00 | XMS_ITS | Continuity of Care Document ---
Author Organization [employer] Paul[employer] [facility] Address [address] [facility] [address] [place] [address] Phone Care Team Providers Care [place]chill Administrator Name Role Phone Cesar Vora MD, FACS Unavailable Unavailab le Allergies, Adverse Reactions, Alerts Substance Reaction Status Criticality No Known Allergies Active No Inform ation Medications Medication Instructions Dosage Effective Dates (start - stop) Status Comments famotidine 20 mg tablet take 1 tablet by oral route 2 times every day 20 MG - Active potassium chloride ER 10 mEq capsule,extended release take 2 capsule by oral route every day with food 20 MEQ - Active Bystolic 5 mg tablet take 1 tablet by oral route every day 5 MG - Active acyclovir 400 mg tablet take 2 tablet by oral route every 4 hours for 10 days while awake 800 MG - Active Pomalyst 1 mg capsule take 5 capsule by oral route every day on days 1 through 21 of a 28 day treatment cycle 5 MG - Active Pain Relief (with salicylamide) 162 mg-110 mg-152 mg-32.4 mg tablet take 1 tablet by oral route every 4 hours as needed - Active Darzalex Faspro 1,800 mg-30,000 unit/15 mL subcutaneous solution inject 15 milliliter by subcutaneous route every 4 weeks over approximately in the abdomen 15.00 milliliter - Active dexamethasone sodium phosphate (PF) 10 mg/mL injection syringe inject (10MG) by intravenous route x 1 dose, followed by 4 mg by intramuscular route every 6 hours untilsymptoms subside 10 MG - Active losartan 50 mg-hydrochlorothia zide 12.5 mg tablet take 1 tablet by oral route every day 1.00 tablet - Active B-100 Complex ER 100 mg tablet,extended release - Active [place] 5 mg-325 mg tablet take 1 tablet by oral route every 6 hours as needed for pain - Active diltiazem ER 120 mg capsule,extended release take 1 capsule by oral route every day 120 MG - No Longer Active Procedures Procedure Date No Charge Optomap Fundus Photos 022 Visual Field Examination(s) Office/outpatient Visit, New No Charge Refraction After Cataract Laser Surgery Eye Exam & Treatment After Cataract Laser Surgery No Charge Refraction No Charge Optomap Fundus Photos 017 Eye Exam & Treatment Remove Cataract, Insert Lens IOLMaster-Professional Remove Cataract, Insert Lens Eye Exam, New Patient No Charge Optomap Fundus Photos 015 Advance Directives Directive Yes / No Effective Date File Name No Information Encounters Encounter Description Practice Location Reason(s) For Visit Diagnoses Date Provider Providers Copied on Encounter Office/outpa tient Visit, [facility], [id number] [place] [address] [address], [place], [place], [id number], [place] tel:[phone] SEC [place] Eyelid infections (chief complaint) Episcleritis of left eyeOther vitreous opacities, bilateralOth er visual disturbances 2 [place] Cesar. [address] [place] [employer] [facility], [address], [place], [place], [address], [place]. tel:[phone] Specialist: Hermelindo Lopez MD, [address] [facility] [address], [place], [address]. tel:[phone] Provider: Vicky Ray OD, [address] [facility], [place], [address]. tel:[phone] [facility], [address] [place] [address], [place], [place], [address], [place] tel:[phone] SEC [place] Professional yag pc OS evaluation (chief complaint) Bilateral artificial lens implantOther secondary cataract, left eyeCyst of right eyelidPVD (posterior vitreous detachment), left eyeBilateral ocular hypertension Oct-1 8 Jose R Franco. [address] [facility], [address], [place], [place], [address], [place]. tel:[phone] Referring Provider: Michele Orellana OD A, [address] [place] [address] Eye [facility], [place], [address]. tel:[phone] [facility], [address] [place], [place] [address], [place], [place], [address], [place] tel:[phone] SEC Steven Sifuentes Yag PC Eval (chief complaint) No Information 7 Vielka Cesar. [address] [place], [place] [address], [address], [place], [place], [address], [place]. tel:[phone] Referring Provider: Michele Orellana OD A, [address] [place] [address], [place], [address]. tel:[phone] [employer] [email or web address], [address] [employer] [address], [place], [place], [address], [place] tel:[phone] Coybienvenidorosalio No Information 7 Vielka Cesar. [facility], [address], [place], [place], [address], [place]. tel:[phone] [employer] [facility], [facility] [employer] [address], [place], [place], [address], [place] tel:[phone] [facility] No Information 5 [place] Cesar. [facility], [address], [place], [place], [address], [place]. tel:[phone] Referring Provider: Michele Orellana OD A, [address] [place] [address], [place], [address]. tel:[phone] [employer] [email or web address], [address] [place] [address] [address], [place], [place], [address], [place] tel:[phone] SEC Steven N Bear No Information 5 Vielka Guerrero. [address] [place] [employer] [facility], [address], [place], [place], [address], [place]. tel:[phone] Referring Provider: Michele Acevedo, [address] [facility] Eye [facility], [place], [address]. tel:[phone] [facility], [address] [place] [address] [address], [place], [place], [address], [place] tel:[phone] [facility] No Information 5 Vielka Guerrero. [facility] [place] [employer] [facility], [address], [place], [place], [address], [place]. tel:[phone] Referring Provider: Michele Acevedo, [address] [facility], [place], [address]. tel:[phone] [facility], [address] [place] [address] [address], [place], [place], [address], [place] tel:[phone] SEC Steven N Bear Cataract Evaluation (chief complaint) No Information 5 Vielka Geurrero. [address] [place] [address] [employer] [facility], [address], [place], [place], [address], [place]. tel:[phone] Referring Provider: Michele Acevedo, [address] [place], [address]. tel:[phone] Family History Family Member Type Diagnosis Age At Onset Mother Problem (finding) diabetes melli tus in first degree relative Mother Problem (finding) glaucoma Payers Payer name Insurance type Covered libertarian ID Authoriza tion(s) [place] [id number] Aetna Mdcr Supp CI [id number] Social History Type Description Quantity Date Captured Comments Alcohol Use Details No Caffeine Use Details 1 cup per day Tobacco Use Status Never smoked tobacco 2021 Smoking Status Never smoker Sex Male Chief Complaint And Reason For Visit From encounter dated '08/03/2021 14:00'. Eyelid infections (chief complaint). Description: The 70 year old male presents for evaluation of Eyelid infections in the left eye. Pt reports on 07/28/2021 he was experiencing very swollen eyelids and his OS was red. If he looks to the left things are distorted. When this initially started, he states his eye was tender and sore. Saw ER on the following Friday and they diagnosed conjunctivitis and prescribed Tobradex TID OU, to this day the pt is still taking Tobradex TID OU. Pt complains aboutdizziness but is unsure if caused by his chemo therapy and/or his eye condition, and lots of tearing and decreased distance vision OU. He feels he also has something floating in OS. He also has bumpsaround his eyes. They don't bother him but he wants to know what they are. Reason For Referral Reason For Referral No Information Plan Of Treatment Date Type Action Status Patient Education Learning About YAG Lase r Capsulotomy completed History Of Present Illness Encounter Date Complaint History Of Prese nt Illness Eyelid infections The 70 year ol d male presents for evaluation of Eyelid infections in the left eye. Pt reports on 07/28/2021 he was experiencing very swollen eyelids and his OS was red. If he looks to the left things are distorted. When this initially started, he states his eye was tender and sore. Saw ER on the following Friday and they diagnosed conjunctivitis and prescribed Tobradex TID OU, to this day the pt is still taking Tobradex TID OU. Pt complains about dizziness but is unsure if caused by his chemo therapy and/or his eye condition, and lots of tearing and decreased distance vision OU. He feels he also has something floating in OS. He also has bumps around his eyes. They don't bother him but he wants to know what they are. yag pc OS evaluation The 67 year old male presents for a YAG PC OS evaluation per Dr. Orellana. Patient is pseudo ou with yag cap OD. Patient c/o it's like looking through wax paper OS x 3 months. Yag PC Eval The 65 year old male presents for Yag PC Eval in the right eye and left eye. Hx PCIOL OU, Opacifies Cap OU. Pt states his vision is not as clear as it used to be. Pt states he has limited his driving at night due to poor vision. Pt denies pain/discomfort OU, Pt using AFT's PRN. Pt is currently undergoing Radiation 5 days a week, 2 treatments left. Cataract Evaluation The 63 year old male presents for Cataract Evaluation. Patient c/o blurry v/a when watching television OU Pt feels out of balance. Patient c/o blurry v/a when trying to recognize peoples' faces from across the street OU. Patient denies any pain or discomfort at this time. Patient not taking any drops at this time. Functional Status Date Functional Assessmen t No Information Instructions Date Instruction Additional Infor lily Impression/Plan Impression/Plan Follow up - Follow u p with referring in 2-4 weeks Impression/Plan - PC F diagnosis discussed with the patient. PCF is the likely cause of the patients visual complaints. YAG PC OD understood for treatment, will proceed with laser treatment today. Pt should return to referring in 2-4 weeks. Letter generated and sent to Dr. Orellana Other secondary marc ract, right eye - Surgery advised; risks, benefits, alternatives discussed. Related to Other secondary cataract, right eye - sched CE OS 1st Related to Sen ile nuclear cataract - Cataracts account for the patient's complaints. Discussed all risks, benefits, procedures and recovery. Pt understands surgery is elective and can proceed when desired. Patient understands changing glasses will not improve vision. Patient desires to have surgery, recommend phacoemulsification with intraocular lens.IOL options discussed and pt is aware standard monofocal IOL will still require specs at near and for any remaining correction. Lifestyle IOL's discussed and pt is aware these are an out of pocket expense not covered by insurance.Explained the accuracy and effectiveness of any lens implant cannot be guaranteed and the need for glasses for some visual activities after cataract surgery is likely for most patients even when considering a lifestyle IOL. Pt understands he will experience anisometropia until OU are done.Letter generated and sent to Dr. Lapp. [place] with him. Related to Senile nuclear cataract Senile nuclear catar act - Surgery advised; risks, benefits, alternatives discussed. Related to Senile nuclear cataract Assessments Type Assessment Date assessment Episcleritis of left eye 2021 assessment Other vitreous opacities, bilate ral assessment Other visual disturbances Patient Care Teams Name Effective Dates (start - stop) Status Members No Information
--- OUTSIDE RECORDS SUMMARY | 2025-01-27 07:54 | XMS_ITS ---
Author Organization [facility] Address [address] [place] [address] Care Team Providers Care Formulation Chemist Name Role Phone Jatin Gamble MD Primary Care Provider [phone] Hermelindo Butler MD Unavailable Roberto Rojo MD Unavailable [phone] Jatin Gamble MD Unavailable [phone] Francoise Fagan NP Unavailable Erlin Servin MD Unavailable [phone] Julian Valdez MD Unavailable Salvador Norris MD Unavailable Miscellaneous, Not In File Unavailable Unava ilable Active Problems Patient Care Coordination No te Formatting of this note is d ifferent from the original. BMT Inpatient Care Coordination Overview Diagnosis [place] [address] Treatment Plan Clinical Trial [id number] Rahel Reason for Admission JOHN Transplant/IEC Planning [...] Medical Assistants Post-Discharge Follow-Up Living Situation/Distance from [facility] [place] (45 min) Caregiver Self, Lab/Transfusion Frequency Phone: Fax: Venous Access & Care implanted vascular device Local Oncologist Contact Phone: Fax: Post-Discharge Office Visit (H30) HIRAM 08/31 Miscellaneous Notes: Problem Noted Date Diagnosed Date Bacterial UTI 12/21/2024 Altered mental status 12/21/2024 Hx of lithotripsy 12/21/2024 Stage 3a chronic kidney disease 12/21/2024 Debility 12/21/2024 Anemia in stage 3a chronic kidney disease 2024 Neutrophilic leukocytosis 12/21/2024 Benign prostatic hyperplasia with lower urinary tract symptoms 12/21/2024 Enlarged prostate with urinary obstruction 10/27 Bladder stones 10/27/2024 Bacteremia due to Enterococcus 09/15/2024 Ureteral stone 09/11/2024 Oliguria 09/11/2024 Elevated serum creatinine 08/23/2024 Iron deficiency anemia 08/05/2023 Morbid (severe) obesity due to excess calories 0 07/17/2023 Hypogammaglobulinemia 12/25/2022 Chronic pansinusitis 05/22/2022 Assessment [...] is a risk of orbital injury and WOOD FINISHER injury which could result in blindness or [...] this. Assessment & Plan (07/09/2022 7:42 PM CEMENT PATCHER): I talked with him quite a bit [...] weeks. Assessment & Plan (05/26/2022 4:16 PM CEMENT PATCHER): He does have pretty significant sinusitis and [...] day. Assessment & Plan (05/26/2022 4:17 PM CEMENT PATCHER): It is very possible that his cough could be due to sinusitis also. Hopefully that will continue to improve as we treat. He understands. Immunocompromised 11/13/2021 Multiple myeloma not having achieved remission 0 10/28/2021 Cancer Staging:Clinical stage from 10/16/2021:RISS Stage II(Bodx-4-otaeuaidyprej (mg/L): 3.7, Albumin (g/dL): 4.2, ISS: Stage [...] and Dexamethasone in June 2021 Clinical trial [id number] initiated on 10/29/21; C46D1 08/03/24. BMT following [...] he got a TTE on 10/19 at [place] however unclear why not currently in the system - May need to repeat TTE prior to treatment if results unavailable - Continue OI ppx with acyclovir 400mg BID - Begin trial [id number], a Bispecific Antibody Targeting BCMA treatment - [...] he got a TTE on 10/19 at [place] however unclear why not currently in the system - May need to repeat TTE prior to treatment if results unavailable - Continue OI ppx with acyclovir 400mg BID - Begin trial [id number], a Bispecific Antibody Targeting BCMA treatment - [...] BID Assessment & Plan (05/31/2021 10:51 AM CEMENT PATCHER): Continue home pepcid, asx Renal mass 05/30/2021 Assessment & Plan (05/31/2021 10:51 AM CEMENT PATCHER): Admitted for observation after L renal mass [...] 07/17/2023 Assessment & Plan (05/31/2021 10:52 AM CEMENT PATCHER): Follows with oncology on daratumumab monotherapy -counts [...] blood in urine Follow up pathology from hjiwedcin-sdq-uiuzmfgw high-grade papillary urothelial carcinoma (grade 2) --follow [...] blood in urine Follow up pathology from zamvbemjf-exe-qjzsicdu high-grade papillary urothelial carcinoma (grade 2) --follow [...] See above for infection work up Resolved Benign essential HTN 11/15/2013 Assessment & Plan (08/29/2024 10:53 PM [...] supplementation Assessment & Plan (05/31/2021 10:51 AM CEMENT PATCHER): Stable on home losartan, nebivolol, triamterene-HCTZ 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/23/2013 Current Treatment and Therapy Plans - INPT/OUTPT - [facility] - MM - [id number] - Arm B - Dose Expansion Phase - TNB-383B Monotherapy* Plan Start Date:10/29/2021 Plan Provider:Hermelindo Butler MD Linked Problems Multiple myeloma in relapse (HCC) Treatment Medications Current Day (Day 1 , Cycle 51 - Planned for 01/25/2025) INV-[facility] (/TN [id number]-[id number]) Etentamig (TNB-383B/ABBV-383) IVPB in 50 mL (ANTI-LAG-3)INV-[facility] Etentamig (TNB-383B/ABBV-383) (/TNB-383B.0001)INV-[facility] sodium chloride 0.9 % INV-[facility] Etentamig (TNB-383B/ABBV-383) (IVSS-FREE FORMULATION) (/TNB-383B.0001) 40 mg in sodium chloride 0.9% 30 mL IVPBINV-[facility] sodium chloride 0.9 % flush IVPB 20 [...] not having achieved remission (HCC) Treatment Medications immune globulin (GAMUNEX-C,G AMMAKED) 10 % iron dextran (INFED) infusion* Plan Start Date:08/29/2023 [...] Automatic Entry Manual Entr y Fluoro Time 3 minutes 3 minutes 0 minutes Air kerma at the reference point (Ka,r) 89.2 mGy 8 9.2 mGy 0 mGy DLP 3,692 mGycm 3,692 [...]
--- OUTSIDE RECORDS SUMMARY | 2025-01-27 07:54 | XMS_ITS | Encounter Summary ---
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 Gender Identity Not on file Sexual Orientation [...] documented as of this encounter Care Teams Paedodontist Relationship Specialty Start Date End Date Jatin Gamble MD [address] [place] [address] PCP - General 10/07/16 Hermelindo Butler MD [address] [place] [address] Medical Oncologist/Hematologunm [facility] Medical Oncology 12/02/17 Roberto Rojo MD [facility] [address] [place] [address] Medical Oncologist/Hematologunm [facility] Hematology and Oncology 12/02/17 Jatin Gamble MD [address] [place] [address] Referring Physician Internal Medicine 12/02/17 Garry Dukes MD [address] [place] [address] Referring Physician Urology 12/02/17 05/27/23 Francoise Fagan NP [address] [place] [address] Nurse Practitioner Medical Oncology 08/03/20 Erlin Servin [place] [address] Consulting Physician Otolaryngology 10/04/22 [place] [address] [place] [address] Consulting Physician Urology 05/28/23 Salvador Norris MD [id number] [place] [address] Consulting Physician Infectious Diseases 09/15/24 Miscellaneous, Not In File 09/15/24 documented as of this encounter
--- OUTSIDE RECORDS SUMMARY | 2025-01-27 07:54 | XMS_ITS | Clinical Summary ---
Author Organization [facility] Address [address] [place] [address] Care Team Providers Care Production Team Member Name Role Phone Jatin Gamble MD Primary Care Provider Hermelindo Butler MD Unavailable Roberto Rojo MD Unavailable Jatin Gamble MD Unavailable [phone] Francoise Fagan NP Unavailable Erlin Servin MD Unavailable [phone] Julian Valdez MD Unavailable [phone] Salvador Norris MD Unavailable Miscellaneous, Not In [...] ROCHLOROTHIAZID E 37.5-25 mg per tabletIndicatio ns:hypertension Take 1 tablet/capsule by mouth every other day One tablet daily alternating with 1/2 tablet daily 9 Active HYDROcodone-li taminophen (NORCO) 10-325 mg per tabletIndicatio ns:Pain Take 0.5 tablets by mouth every 8 (eight) hours as needed for pain 120 tablet 1 Active losartan (COZAAR) 50 mg tablet Take 0.5 tablets (25 mg total) by mouth every morning 2 Active famotidine (PEPCID) 20 mg tablet Take 1 tablet (20 mg total) by mouth 2 (two) times a day Active Ventolin HFA 90 mcg/actuation inhalerIndicati ons:Multiple myeloma, remission status unspecified (HCC) Inhale 1 puff every 4 (four) hours as needed for wheezing or shortness of breath 5 Active acyclovir (ZOVIRAX) 400 mg tabletIndicatio ns:Multiple myeloma, remission status unspecified (HCC) Take 1 tablet (400 mg total) by mouth 2 (two) times a day 60 tablet 11 5 11/03/19 26 Active allopurinoL (ZYLOPRIM) 100 mg tablet Take 1 tablet (100 mg total) by mouth every morning Active nebivoloL (BYSTOLIC) 5 mg tablet Take 1 tablet (5 mg total) by mouth nightly Active triamterene-hyd roCHLOROthiazid e 37.5-25 mg per tablet/capsule Take 0.5 tablet/capsule by mouth every other day One tablet daily alternating with 1/2 tablet daily Active tamsulosin (FLOMAX) 0.4 mg extended release capsule Take 1 capsule (0.4 mg total) by mouth daily with dinner 30 capsule 5 Active levoFLOXacin (LEVAQUIN) 750 mg tabletIndicatio ns:Blood Stream/Endovasc ular Infection Take 1 tablet (750 mg total) by mouth planogrammer before breakfast for 12 doses 12 tablet 5 01/07/20 25 Active Problems Patient Care Coordination No te Formatting of this note is d ifferent from the original. BMT Inpatient Care Coordination Overview [place] [address] Treatment Plan Clinical Trial [id number] Tenebio Reason for Admission JOHN Transplant/IEC Planning [...] Medical Assistants Post-Discharge Follow-Up Living Situation/Distance from [place], [place] (45 min) Caregiver Self, Lab/Transfusion Frequency Phone: Fax: Venous Access & Care implanted vascular device Local Oncologist Contact Phone: Fax: Post-Discharge Office Visit (H30) KSG 08/31 Miscellaneous Notes: Problem Noted Date Diagnosed [...] is a risk of orbital injury and AIR ROUTE CONTROLLER injury which could result in blindness or [...] this. 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 Assessment & Plan (05/26/2022 4:16 PM BODY WORK AUTO TRIMMER): He does have pretty significant sinusitis and [...] day. Assessment & Plan (05/26/2022 4:17 PM BODY WORK AUTO TRIMMER): It is very possible that his cough could be due to sinusitis also. Hopefully that will continue to improve as we treat. He understands. Immunocompromised 11/13/2021 Multiple myeloma not having achieved remission 0 10/28/2021 Cancer Staging:Clinical stage from 10/16/2021:RISS Stage II(Csbg-7-rdmztyaobkctt (mg/L): 3.7, Albumin (g/dL): 4.2, ISS: Stage [...] and Dexamethasone in June 2021 Clinical trial [id number] initiated on 10/29/21; C46D1 08/03/24. BMT following [...] he got a TTE on 10/19 at [place] however unclear why not currently in the system - May need to repeat TTE prior to treatment if results unavailable - Continue OI ppx with acyclovir 400mg BID - Begin trial [id number], a Bispecific Antibody Targeting BCMA treatment - [...] he got a TTE on 10/19 at [place] however unclear why not currently in the system - May need to repeat TTE prior to treatment if results unavailable - Continue OI ppx with acyclovir 400mg BID - Begin trial [id number], a Bispecific Antibody Targeting BCMA treatment - [...] BID Assessment & Plan (05/31/2021 10:51 AM BODY WORK AUTO TRIMMER): Continue home pepcid, asx Renal mass 05/30/2021 Assessment & Plan (05/31/2021 10:51 AM BODY WORK AUTO TRIMMER): Admitted for observation after L renal mass [...] 07/17/2023 Assessment & Plan (05/31/2021 10:52 AM BODY WORK AUTO TRIMMER): Follows with oncology on daratumumab monotherapy -counts [...] removed and cauterized--cytology negative, now has 2-way bcekham, recs from urology to keep placed x1 week 11/12-Beckham placed-dawn blood in urine Follow up pathology from [id number] high-grade papillary urothelial carcinoma (grade 2) --follow [...] blood in urine Follow up pathology from [id number] high-grade papillary urothelial carcinoma (grade 2) --follow [...] supplementation Assessment & Plan (05/31/2021 10:51 AM BODY WORK AUTO TRIMMER): Stable on home losartan, nebivolol, triamterene-HCTZ Secondary [...] Encounters Date Type Department Care Team Description 01/24/2025 Orders Only [facility] Medicine Bone Marrow Transplant [facility] [address] [place] [address] Fadumo Tobar RN Multiple myeloma, remission status unspecified (HCC) (Primary Dx) 01/18/2025 9:00 AM CDT Infusion [facility] - Infusion [address] [facility] [address] [place] [address] Hypogammaglobulinemia (Primary Dx); Multiple myeloma, remission status unspecified (HCC); Multiple myeloma not having achieved remission (HCC) 01/18/2025 8:00 AM CDT Office Visit [facility] Medicine Bone Marrow Transplant [facility] [address] [phone] Francoise Fagan NP Multiple myeloma, remission status unspecified (HCC) (Primary Dx) 01/18/2025 7:00 AM CDT Lab [facility] [place] - Lab Collection [facility]0 [facility] Floor [address] [place] [address] Multiple myeloma, remission status unspecified (HCC) 01/12/2025 Telephone [facility] Bone Marrow Transplant [address] [place] [phone] Kassandra Martino RN 01/12/2025 Orders Only [facility] Bone Marrow Transplant [address] [place] [phone] Hermelindo Steward MD Multiple myeloma, remission status unspecified (HCC) (Primary Dx) 01/07/2025 Orders Only [facility] Bone Marrow Transplant [address] [place] [phone] Hermelindo Steward MD Multiple myeloma, remission status unspecified (HCC) (Primary Dx) 12/21/2024 1:05 PM CDT - 12/24/2024 6:53 PM CDT Hospital Encounter [address] [phone] Freddy Jiménez MD Gallion, Sabina Saakova, MD Berhil, Anis, MD Ahmad, Bazgha Imtiaz, DO Bacterial UTI (Primary Dx); Altered mental status, unspecified altered mental status type; Multiple myeloma, remission status unspecified (HCC); Illness, unspecified Discharge Disposition: Discharge to home or self care 12/16/2024 11:41 AM CDT Anesthesia Event [facility] Operating Room [address] [place] [phone] Michele Giraldo MD Jacobsen, Kyle G., MD 12/16/2024 11:00 AM CDT - 12/16/2024 1:00 PM CDT Surgery [facility] Operating Room [address] [place] [phone] Julian Valdez MD Cystoscopy, Bilateral Retrograde Pyelograms, 12/16/2024 9:03 AM CDT - 12/17/2024 2:57 PM CDT Hospital Encounter [address] [phone] Julian Valdez MD Discharge Disposition: Discharge to home or self care 12/01/2024 12:00 PM CDT Pre-Admission Testing [facility] Pre Anesthesia Testing [address] [place] [phone] 11/30/2024 9:30 AM CDT Infusion [facility] - Infusion [address] [place] [address] Multiple myeloma in relapse (HCC) (Primary Dx); Multiple myeloma in remission (HCC) 11/30/2024 8:00 AM CDT Office Visit [facility] Bone Marrow Transplant [address] [place] [phone] Francoise Fagan NP Multiple myeloma, remission status unspecified (HCC) (Primary Dx); Multiple myeloma in remission (HCC) 11/30/2024 7:30 AM CDT Clinical Support [facility] - Lab Collection [address] [place] [address] Floor 6 [place] [address] Multiple myeloma in relapse (HCC); Multiple myeloma, remission status unspecified (HCC) 11/30/2024 7:00 AM CDT Clinical Support [facility] Oncology Lab [address] [place] [address] Floor 6 [place] [address] Multiple myeloma in remission (HCC) 11/09/2024 9:30 AM CDT Infusion [facility] - Infusion [address] [place] [address] Floor 5 [place] [address] Multiple myeloma in relapse (HCC) (Primary Dx); Multiple myeloma in remission (HCC) 11/09/2024 8:00 AM CDT Office Visit [facility] Medicine Bone Marrow Transplant [address] [place] [phone] Francoise Fagan NP Multiple myeloma, remission status unspecified (HCC) 11/09/2024 7:00 AM CDT Clinical Support [facility] - Lab Collection [address] [place] [phone] Multiple myeloma in remission (HCC); Multiple myeloma in relapse (HCC) 11/09/2024 Orders Only [facility] Medicine Bone Marrow Transplant [address] [place] [phone] Hermelindo Steward MD Multiple myeloma, remission status unspecified (HCC) (Primary Dx) 11/09/2024 Orders Only [facility] Medicine Bone Marrow Transplant [address] [place] [phone] Hermelindo Steward MD 11/04/2024 Orders Only [facility] Medicine Bone Marrow Transplant [address] [place] [phone] Hermelindo Steward MD Multiple myeloma, remission status unspecified (HCC) (Primary Dx) 11/03/2024 Orders Only [facility] Medicine Bone Marrow Transplant [address] [place] [phone] Hermelindo Steward MD Multiple myeloma in remission (HCC) (Primary Dx); Multiple myeloma in relapse (HCC) 11/02/2024 9:30 AM CDT Office Visit [facility] Medicine Bone Marrow Transplant [address] [place] [phone] Francoise Fagan NP Multiple myeloma, remission status unspecified (HCC) (Primary Dx); Multiple myeloma in remission (HCC); Multiple myeloma in relapse (HCC) 11/02/2024 8:30 AM CDT Clinical Support [facility] Oncology Lab [address] [place] [phone] Multiple myeloma in remission (HCC) 11/02/2024 7:15 AM CDT Clinical Support [facility] - Lab Collection [address] [facility] Floor [address] [place] [address] Multiple myeloma in relapse (HCC); Multiple myeloma, remission status unspecified (HCC) from Last 3 Months Immunizations Immunization [...] Medical History Date Comments Hypertension Multiple myeloma GERD (gastroesophageal reflux disease) Sinusitis Lesion of bladder pre cancerous has office cystoscopy for f/u History of radiation therapy 2013 Personal history of chemotherapy has chemo every 21 days at [place] last tx 09/24/22 Cough patient states Lena [...] drink = 0.6 oz pur e alcohol) [facility] Utilities Answer Date Recorded In the past 12 months has e electric, gas, oil, or water company threatened to shut off services in your home? No 12/22/2024 Social Connection and Isolation Panel Answer Date Recorded In a typical week, how many times do you talk on the phone with family, friends, or neighbors? More than three times a week 12/22/2024 How often do you get togethe r with friends or relatives? More than three times a week 12/22/2024 How often do you attend chur ch or latter day services? More than 4 times per year 12/22/2024 Do you belong to any clubs o r organizations such as latter-day groups, unions, fraternal or athletic groups, or school groups? Yes 12/22/2024 How often do you attend meet ings of the clubs or organizations you belong to? More than 4 times per year 12/22/2024 Are you , , di vorced, , never , or living with a partner? 12/22/2024 AUDIT-C Answer Date Recorded Q1: How often do you have a drink containing alcohol? Never 12/01/2024 Q2: How many drinks containi ng alcohol do you have on a typical day when you are drinking? Patient does not drink Frequency of Binge Drinking Not on file 11/08 Overall Financial Resource Strain (CARDIA) Answe r Date Recorded How hard is it for you to pa y for the very basics like food, housing, medical care, and heating? Not hard at all 12/22/2024 Hunger Vital Sign Answer Date Recorded Within the past 12 months, y ou worried that your food would run out before you got the money to buy more. Never true 12/23/19 25 Within the past 12 months, t he food you bought just didn't last and you didn't have money to get more. Never true 12/22/2024 PRAPARE - Transportation Answer Date Re corded In the past 12 months, has l ack of transportation kept you from medical appointments or from getting medications? No 12/07 In the past 12 months, has l ack of transportation kept you from meetings, work, or from getting things needed for daily living? No 12/22/2024 Housing Stability Vital Sign Answer Patricio e Recorded In the last 12 months, was t here a time when you were not able to pay the mortgage or rent on time? No 12/22/2024 In the past 12 months, how m any times have you moved where you were living? 0 12/22/2024 At any time in the past 12 m [facility], were you homeless or living in a senior care (including now)? No 12/22/2024 Personal Safety Answer Date Recorded Have you ever been in or are you currently in a harmful physical or emotional relationship or is someone making you feel afraid or unsafe? 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 Gender Identity Not on file Sexual Orientation Not on file Obstetrics History Last Filed Vital Signs Vital Sign Reading Time Taken Comments Blood Pressure 153/88 01/18/2025 12:31 PM CDT Pulse 67 01/18/2025 12:31 PM CDT Temperature 36.8 C (98.2 F) 01/18/2025 12:31 PM CDT Respiratory Rate 16 01/18/2025 12:31 PM CDT Oxygen Saturation 100% 01/18/2025 12:31 PM CDT Inhaled Oxygen Concentration - - Weight 124.3 kg (274 lb) 01/18/2025 7:53 AM CDT Height 175.3 cm (5' 9) 12/21/2024 6:35 PM CDT Body Mass Index 40.46 12/21/2024 6:35 PM CDT Plan of Treatment Health Maintenance Due Date Last Done Comments Colon Cancer Screening-Colonoscopy 1950 Depression Screening 1950 Hepatitis B Screening 1970 Well Visit 65+ 2017 Covid-19 Vaccine (4 - 2023-2 5 season) 2024 06/13/2021, 07/05/2020, 06/07/2020 Influenza Vaccine (#1) 2025 , 03/08/2023, 03/08/2023, Additional history exists Fall Risk Assessment 12/24/2025 12/24/2024 DTaP/Tdap/Td Vaccine (3 - Td or Tdap) 06/21/2033 06/21/2023, 12/09/2011 Zoster Vaccine Completed 08/15/2018, 05/10, 02/28/2018 Pneumococcal vaccine 65+ Completed 021, 11/27/2018, 04/16/2015 Hepatitis C Screening Completed 10/16/2021 Prostate Cancer Screening-PSA Discontinued , 09/23/2023, 09/02/2023, Additional history exists Medical Devices Implanted Type Area Assembler Leather Goods Device Identifier Shelf Expiration Date Model / Serial / Lot Port Other - see comments Right: Chest Wall Description:Upon arrival to IR, not accessed [employer] Stent Ureteral Set Double Pigtail Tapered Tip Contour [id number] Hydroplus Coated [id number] - [id number] Implanted:Qty: 1 on 12/16/2024 by Julian Valdez MD at [facility] Left: Ureter [employer] 04/21/2027 [id number] / / [id number] Procedures Procedure Name Priority Date/Time Associated Diagnosis Comments EGFR Routine 01/18/2025 7:34 AM CDT Multiple myeloma, remission status unspecified (HCC) DIFFERENTIAL AUTO Routine 01/18/2025 7:3 4 AM CDT Multiple myeloma, remission status unspecified (HCC) CBC WITH AUTO DIFFERENTIAL Routine 01/18/2025 7:34 AM CDT Multiple myeloma, remission status unspecified (HCC) COMPREHENSIVE METABOLIC PANEL Routine 01/18/2025 7:34 AM CDT Multiple myeloma, remission status unspecified (HCC) IGA Routine 01/18/2025 7:34 AM CDT Multiple myeloma, remission status unspecified (HCC) IGG Routine 01/18/2025 7:34 AM CDT Multiple myeloma, remission status unspecified (HCC) IGM Routine 01/18/2025 7:34 AM CDT Multiple myeloma, remission status unspecified (HCC) IMMUNOGLOBULIN FREE LIGHT CHAINS Routine 01/18/2025 7:34 AM CDT Multiple myeloma, remission status unspecified (HCC) LACTATE DEHYDROGENASE Routine 01/18/2025 7:34 AM CDT Multiple myeloma, remission status unspecified (HCC) PROTEIN ELECTROPHORESIS, WITH REFLEX, SERUM Routine 01/18/2025 7:34 AM CDT Multiple myeloma, remission status unspecified (HCC) IMMUNOTYPING Routine 01/18/2025 7:34 AM CDT Multiple myeloma, remission status unspecified (HCC) EGFR Routine 12/24/2024 4:40 AM CDT DIFFERENTIAL AUTO Routine 12/24/2024 4:4 0 AM CDT CBC WITH AUTO DIFFERENTIAL Routine 12/24/2024 4:40 AM CDT BASIC METABOLIC PANEL Routine 12/24/2024 4:40 AM CDT EGFR Routine 12/23/2024 4:03 AM CDT DIFFERENTIAL AUTO Routine 12/23/2024 4:0 3 AM CDT CBC WITH AUTO DIFFERENTIAL Routine 12/23/2024 4:03 AM CDT BASIC METABOLIC PANEL Routine 12/23/2024 4:[address] KUB STONE WO CONTRAST IP Routine 12/22/2024 4:16 PM CDT BLOOD CULTURE Routine 12/22/2024 10:53 AM CDT BLOOD CULTURE Routine 12/22/2024 10:53 AM CDT ADD ON LAB TEST Add-On 12/22/2024 8:56 AM CDT HEMOGLOBIN A1C Routine 12/22/2024 5:55 AM CDT EGFR Routine 12/22/2024 5:55 AM CDT DIFFERENTIAL AUTO Routine 12/22/2024 5:5 5 AM CDT BASIC METABOLIC PANEL Routine 12/22/2024 5:55 AM CDT CBC WITH AUTO DIFFERENTIAL Routine 12/22/2024 5:55 AM CDT URINALYSIS, MICROSCOPIC ONLY STAT 12/21/2024 4:16 PM CDT URINE CULTURE STAT 12/21/2024 4:16 PM CDT URINALYSIS AND REFLEX TO MICROSCOPIC AND CULTURE STAT 12/21/2024 4:16 PM CDT BLOOD CULTURE Routine 12/21/2024 1:22 PM CDT BLOOD CULTURE Routine 12/21/2024 1:22 PM CDT EGFR STAT 12/21/2024 1:17 PM CDT DIFFERENTIAL AUTO STAT 12/21/2024 1:1 7 PM CDT SEPSIS LACTATE WITH REFLEX STAT 12/21/2024 1:17 PM CDT COMPREHENSIVE METABOLIC PANEL STAT 12/21/2024 1:17 PM CDT CBC WITH AUTO DIFFERENTIAL STAT 12/21/2024 1:17 PM CDT URINE CULTURE STAT 12/21/2024 1:17 PM CDT ECG 12-LEAD STAT 12/21/2024 1:13 PM CDT EGFR Routine 12/17/2024 8:02 AM CDT DIFFERENTIAL AUTO Routine 12/17/2024 8:0 2 AM CDT CBC WITH AUTO DIFFERENTIAL Routine 12/17/2024 8:02 AM CDT BASIC METABOLIC PANEL Routine 12/17/2024 8:02 AM CDT FL FLUOROSCOPY < 1 HOUR IP Routine 12/16/2024 4:06 PM CDT LA AN PROCEDURE PLACEHOLDER Routine 12/16/2024 12:02 PM CDT LA AN ELECTIVE ENDOTRACHEAL AIRWAY Routine 12/16/2024 12:02 PM CDT PLACEMENT STENT 12/16/2024 11:40 AM CDT Enlarged prostate with urinary obstruction Bladder stone CYSTOSCOPY HOLMIUM LASER LITHOTRIPSY BLADDER STONE 12/16/2024 11:40 AM CDT Enlarged prostate with urinary obstruction Bladder stone CYSTOSCOPY RETROGRADE PYELOGRAM - INSERTION URETERAL STENT 12/16/2024 11:40 AM CDT Enlarged prostate with urinary obstruction Bladder stone PROTIME-INR STAT 11/30/2024 7:31 AM CDT Multiple myeloma in relapse (HCC) APTT STAT 11/30/2024 7:31 AM CDT Multiple myeloma in relapse (HCC) EGFR STAT 11/30/2024 7:30 AM CDT Multiple myeloma in relapse (HCC) DIFFERENTIAL AUTO STAT 11/30/2024 7:3 0 AM CDT Multiple myeloma in relapse (HCC) IGA Routine 11/30/2024 7:30 AM CDT Multiple myeloma, remission status unspecified (HCC) IGG Routine 11/30/2024 7:30 AM CDT Multiple myeloma, remission status unspecified (HCC) IGM Routine 11/30/2024 7:30 AM CDT Multiple myeloma, remission status unspecified (HCC) IMMUNOGLOBULIN FREE LIGHT CHAINS Routine 11/30/2024 7:30 AM CDT Multiple myeloma, remission status unspecified (HCC) PROTEIN ELECTROPHORESIS, WITH REFLEX, SERUM Routine 11/30/2024 7:30 AM CDT Multiple myeloma, remission status unspecified (HCC) IMMUNOTYPING Routine 11/30/2024 7:30 AM CDT Multiple myeloma, remission status unspecified (HCC) CBC WITH AUTO DIFFERENTIAL STAT 11/30/2024 7:30 AM CDT Multiple myeloma in relapse (HCC) COMPREHENSIVE METABOLIC PANEL STAT 11/30/2024 7:30 AM CDT Multiple myeloma in relapse (HCC) MAGNESIUM STAT 11/30/2024 7:30 AM CDT Multiple myeloma in relapse (HCC) GAMMA GT STAT 11/30/2024 7:30 AM CDT Multiple myeloma in relapse (HCC) LACTATE DEHYDROGENASE Routine 11/30/2024 7:30 AM CDT Multiple myeloma in relapse (HCC) EGFR STAT 11/09/2024 7:35 AM CDT Multiple myeloma in relapse (HCC) DIFFERENTIAL AUTO STAT 11/09/2024 7:3 5 AM CDT Multiple myeloma in relapse (HCC) CBC WITH AUTO DIFFERENTIAL STAT 11/09/2024 7:35 AM CDT Multiple myeloma in relapse (HCC) COMPREHENSIVE METABOLIC PANEL STAT 11/09/2024 7:35 AM CDT Multiple myeloma in relapse (HCC) MAGNESIUM STAT 11/09/2024 7:35 AM CDT Multiple myeloma in relapse (HCC) GAMMA GT STAT 11/09/2024 7:35 AM CDT Multiple myeloma in relapse (HCC) PROTIME-INR STAT 11/09/2024 7:35 AM CDT Multiple myeloma in relapse (HCC) APTT STAT 11/09/2024 7:35 AM CDT Multiple myeloma in relapse (HCC) LACTATE DEHYDROGENASE Routine 11/09/2024 7:35 AM CDT Multiple myeloma in relapse (HCC) EGFR STAT 11/02/2024 7:36 AM CDT Multiple myeloma in relapse (HCC) DIFFERENTIAL AUTO STAT 11/02/2024 7:3 6 AM CDT Multiple myeloma in relapse (HCC) IGA Routine 11/02/2024 7:36 AM CDT Multiple myeloma, remission status unspecified (HCC) IGG Routine 11/02/2024 7:36 AM CDT Multiple myeloma, remission status unspecified (HCC) IGM Routine 11/02/2024 7:36 AM CDT Multiple myeloma, remission status unspecified (HCC) IMMUNOGLOBULIN FREE LIGHT CHAINS Routine 11/02/2024 7:36 AM CDT Multiple myeloma, remission status unspecified (HCC) PROTEIN ELECTROPHORESIS, WITH REFLEX, SERUM Routine 11/02/2024 7:36 AM CDT Multiple myeloma, remission status unspecified (HCC) IMMUNOTYPING Routine 11/02/2024 7:36 AM CDT Multiple myeloma, remission status unspecified (HCC) CBC WITH AUTO DIFFERENTIAL STAT 11/02/2024 7:36 AM CDT Multiple myeloma in relapse (HCC) COMPREHENSIVE METABOLIC PANEL STAT 11/02/2024 7:36 AM CDT Multiple myeloma in relapse (HCC) MAGNESIUM STAT 11/02/2024 7:36 AM CDT Multiple myeloma in relapse (HCC) GAMMA GT STAT 11/02/2024 7:36 AM CDT Multiple myeloma in relapse (HCC) PROTIME-INR STAT 11/02/2024 7:36 AM CDT Multiple myeloma in relapse (HCC) APTT STAT 11/02/2024 7:36 AM CDT Multiple myeloma in relapse (HCC) LACTATE DEHYDROGENASE Routine 11/02/2024 7:36 AM CDT Multiple myeloma in relapse (HCC) PSA DIAGNOSTIC Routine 08/06/2024 7:43 AM BODY WORK AUTO TRIMMER Multiple myeloma, remission status unspecified (HCC) HEPATITIS C ANTIBODY STAT 10/16/2021 9:50 AM CDT Multiple myeloma in relapse (HCC) from Last 3 Months or Most Recently Relevant to Health Maintenance Results * Immunotyping, serum with interpretation (01/18/2025 7:34 AM CDT) [facility] Immunosubtraction Please see comment Comment: NO PARAPROTEIN DETECTED Reviewed and signed by Ivan Sims MD, PhD 01/19/2025 Blood 01/18/2025 7:34 AM CDT 01/18/2025 8:21 AM CDT us Hermelindo Butler MD LAB BLOOD ORDER ELANA Final Result [facility] [place] [address] * (ABNORMAL) eGFR (01/18/2025 7:34 AM CDT) Pathologist [facility] eGFR 32(L) >=60 mL/min/1. 73 m2 Comment: Interpretive Data [...] interpretive data was last reviewed 2021. Blood 01/18/2025 7:34 AM CDT 01/18/2025 7:39 AM CDT us Hermelindo Butler MD LAB BLOOD ORDER ELANA Final Result [facility] Department [place] [address] * (ABNORMAL) Differential, auto (01/18/2025 7:34 AM CDT) Neutrophil abs 4.38 1.50 - 6.50 K/cumm Comment:Testing performed by : [facility], [address] [place] [phone] Lymphocyte abs 1.00 0.80 - 3.30 K/cumm MT [facility] Comment:Testing performed by : [facility], [address] [place] [phone] Monocyte abs 0.52 0.20 - 0.80 K/cumm [facility] Comment:Testing performed by : [facility], [address] [place] [id number] Eosinophil abs 0.66(H) 0.00 - 0.50 K/cumm [facility] Comment:Testing performed by : [facility], [address] [place] [id number] Basophil abs 0.03 0.00 - 0.10 K/cumm [facility] Comment:Testing performed by : [facility], [address] [place], [place] [id number] Neutrophil pct 66.5 % [facility] Comment: Interpretive Data Percent cell count reference ranges are not reported, since discordance with absolute values may lead to misinterpretation of CBC data. Current Interpretive Data was last revised on 2017. Testing performed by: [facility], [address] [place] [address] Lymphocyte pct 15.2 % [facility] Comment: Interpretive Data Percent cell count reference ranges are not reported, since discordance with absolute values may lead to misinterpretation of CBC data. Current Interpretive Data was last revised on 2017. Testing performed by: [facility], [address] [place] [address] Monocyte pct 7.9 % [facility] Comment: Interpretive Data Percent cell count reference ranges are not reported, since discordance with absolute values may lead to misinterpretation of CBC data. Current Interpretive Data was last revised on 2017. Testing performed by: [facility], [address] [place] [address] Eosinophil pct 10.0 % [facility] Comment: Interpretive Data Percent cell count reference ranges are not reported, since discordance with absolute values may lead to misinterpretation of CBC data. Current Interpretive Data was last revised on 2017. Testing performed by: [facility], [address] [place] [id number] Basophil pct 0.4 % [facility] Comment: Interpretive Data Percent cell count reference ranges are not reported, since discordance with absolute values may lead to misinterpretation of CBC data. Current Interpretive Data was last revised on 2017. Testing performed by: [facility], [address] [place] [address] Blood 01/18/2025 7:34 AM CDT 01/18/2025 7:38 AM CDT Hermelindo Butler MD LAB BLOOD ORDER ELANA Final Result [facility] Department [place] [address] * (ABNORMAL) Immunoglobulin free light chains (01/18/2025 7:34 AM CDT) Gautier/Lambda ratio [facility] See Comment 0.26 - 1.65 Comment: Unable to calculate exact result. Interpretive Data The Binding Site FreeLite assay procedure was used. Results from different manufacturers or methods may not be comparable. Serial testing should be performed using the same methods and instrumentation. Current Interpretive Data was last revised on 2023. Gautier free light chain [facility] <0.06(L) 0.33 - 1.94 mg/dL [facility] Comment: Interpretive Data The Binding Site FreeLite assay procedure was used. Results from different manufacturers or methods may not be comparable. Serial testing should be performed using the same methods and instrumentation. Current Interpretive Data was last revised on 2023. Lambda free light chain [facility] <0.14(L) 0.57 - 2.63 mg/dL [facility] Comment: Interpretive Data The Binding Site FreeLite assay procedure was used. Results from different manufacturers or methods may not be comparable. Serial testing should be performed using the same methods and instrumentation. Current Interpretive Data was last revised on 2023. Blood 01/18/2025 7:34 AM CDT 01/18/2025 8:21 AM CDT Hermelindo Butler MD LAB BLOOD ORDER ELANA Final Result [facility] Department [place] [address] * (ABNORMAL) CBC with auto differential (01/18/2025 7:34 AM CDT) WBC 6.59 3.80 - 9.90 K/cumm Comment:Testing performed by : [facility], [address] [place], [place] [id number] Hgb 11.8(L) 13.0 - 17.5 g/dL [facility] Comment:Testing performed by : [facility], [address] [place], [place] [id number] Hct 35.3(L) 38.9 - 50.3 % [facility] Comment:Testing performed by : [facility], [address] [place], [place] [id number] Plt 147(L) 150 - 400 K/cumm [facility] Comment:Testing performed by : [facility], [address] [place], [place] [phone] MPV 7.4 6.8 - 10.4 fL [facility] Comment:Testing performed by : [facility], [address] [place] [address] RBC 3.94(L) 4.30 - 5.80 M/cumm [facility] Comment:Testing performed by : [facility], [address] [place], [place] [phone] MCV 89.6 81.3 - 96.4 fL [facility] Comment:Testing performed by : [facility], [address] [place] [address] MCH 30.0 27.1 - 33.3 pg [facility] Comment:Testing performed by : [facility], [address] [place] [address] MCHC 33.5 32.3 - 35.7 g/dL [facility] Comment:Testing performed by : [facility], [address] [place], [place] [phone] RDW CV 16.9(H) 11.1 - 14.9 % [facility] Comment:Testing performed by : [facility], [address] [place] [address] NRBC abs 0.00 0.00 - 0.01 K/cumm [facility] Comment:Testing performed by : [facility], [address] [place] [phone] Blood 01/18/2025 7:34 AM CDT 01/18/2025 7:38 AM CDT Hermelindo Butler MD LAB BLOOD ORDER ELANA Final Result [facility] Department [place] [address] * (ABNORMAL) Protein electrophoresis with reflex, serum with interpretation (01/18/2025 7:34 AM CDT) Protein, sr 5.8(L) 6.2 - 8.2 g/dL Albumin 3.8 3.2 - 5.0 g/dL [facility] Alpha-1 globulin 0.4 0.2 - 0.4 g/dL [facility] Alpha-2 globulin 0.7 0.5 - 1.0 g/dL [facility] Beta-1 globulin 0.4 0.3 - 0.6 g/dL [facility] Beta-2 globulin 0.3 0.2 - 0.6 g/dL [facility] Gamma globulin 0.2(L) 0.5 - 1.7 g/dL [facility] SPEP interp Please see comment [facility] Comment: Possible abnormal restricted peak in Beta-2 region Decreased gamma globulins See immunotyping for further information Reviewed and signed by Ivan Sims MD, PhD 01/19/2025 Blood 01/18/2025 7:34 AM CDT 01/18/2025 8:21 AM CDT Hermelindo Butler MD LAB BLOOD ORDER ELANA Final Result [facility] Department [place] [address] * Lactate dehydrogenase (LD) (01/18/2025 7:34 AM CDT) Pathologist [facility] Lactate dehydrogenase (LDH) 134 100 - 250 Units/L Blood 01/18/2025 7:34 AM CDT 01/18/2025 7:39 AM CDT Hermelindo Butler MD LAB BLOOD ORDER ELANA Final Result Performing Organization Address City/[facility] Co de Phone Number [facility] Department [place] [address] * (ABNORMAL) IgA (01/18/2025 7:34 AM CDT) [facility] Immunoglobulin A <5(L) 70 - 400 mg/dL Blood 01/18/2025 7:34 AM CDT 01/18/2025 8:05 AM CDT Hermelindo Butler MD LAB BLOOD ORDER ELANA Final Result Performing Organization Address [facility] Co de Phone Number [facility] [place] [address] * IgM (01/18/2025 7:34 AM CDT) [facility] Immunoglobulin M 58 40 - 230 mg/dL Blood 01/18/2025 7:34 AM CDT 01/18/2025 8:05 AM CDT Hermelindo Butler MD LAB BLOOD ORDER ELANA Final Result Performing Organization Address City/[facility] de Phone Number [facility] [place] [address] * (ABNORMAL) IgG (01/18/2025 7:34 AM CDT) Pathologist [facility] Immunoglobulin G <300(L) 700 - 1,600 mg/dL Blood 01/18/2025 7:34 AM CDT 01/18/2025 8:05 AM CDT Hermelindo Butler MD LAB BLOOD ORDER ELANA Final Result [facility] Department [place] [address] * (ABNORMAL) Comprehensive metabolic panel (01/18/2025 7:34 AM CDT) Sodium 143 135 - 145 mmol/L Potassium, pl 4.3 3.3 - 4.9 mmol/L [facility] Chloride 107 97 - 110 mmol/L [facility] CO2 25 22 - 32 mmol/L [facility] Anion gap 11 2 - 15 mmol/L [facility] BUN 32(H) 6 - 25 mg/dL [facility] Creatinine 2.16(H) 0.80 - 1.30 mg/dL [facility] Glucose 112 70 - 199 mg/dL [facility] Comment: Interpretive Data Fasting glucose [...] 9.4 8.5 - 10.3 mg/dL [facility] Bilirubin, total 0.4 0.1 - 1.2 mg/dL [facility] Protein, pl 6.0(L) 6.5 - 8.5 g/dL [facility] Albumin 4.0 3.5 - 5.0 g/dL [facility] Alk phos 70 40 - 130 Units/L [facility] ALT 15 7 - 55 Units/L [facility] AST 15 10 - 50 Units/L [facility] Blood 01/18/2025 7:34 AM CDT 01/18/2025 7:39 AM CDT us Hermelindo Butler MD LAB BLOOD ORDER ELANA Final Result [facility] Department [place] [address] * (ABNORMAL) eGFR (12/24/2024 4:40 AM CDT) eGFR 52(L) >=60 mL/min/1. 73 [...] interpretive data was last reviewed 2021. Blood 12/24/2024 4:40 AM CDT 12/24/2024 6:35 AM CDT us Bazgha Frederick Ahmad DO LAB BLOOD ORDERABLES [place] l Result [facility] [address] Department [place] [address] * (ABNORMAL) Differential, auto (12/24/2024 4:40 AM CDT) Neutrophil abs 6.12 1.50 - 6.50 K/cumm Imm gran abs 0.05 0.00 - 0.10 K/cumm [facility] Lymphocyte abs 0.55(L) 0.80 - 3.30 K/cumm [facility] Monocyte abs 0.70 0.20 - 0.80 K/cumm [facility] Eosinophil abs 0.56(H) 0.00 - 0.50 K/cumm [facility] Basophil abs 0.03 0.00 - 0.10 K/cumm [facility] Neutrophil pct 76.4 % [facility] Comment: Interpretive Data Percent cell count reference ranges are not reported, since discordance with absolute values may lead to misinterpretation of CBC data. Current Interpretive Data was last revised on 2017. Imm gran pct 0.6 % [facility] Comment: Interpretive Data Percent cell count reference ranges are not reported, since discordance with absolute values may lead to misinterpretation of CBC data. Current Interpretive Data was last revised on 2017. Lymphocyte pct 6.9 % [facility] Comment: Interpretive Data Percent cell count reference ranges are not reported, since discordance with absolute values may lead to misinterpretation of CBC data. Current Interpretive Data was last revised on 2017. Monocyte pct 8.7 % [facility] Comment: Interpretive Data Percent cell count reference ranges are not reported, since discordance with absolute values may lead to misinterpretation of CBC data. Current Interpretive Data was last revised on 2017. Eosinophil pct 7.0 % [facility] Comment: Interpretive Data Percent cell count reference ranges are not reported, since discordance with absolute values may lead to misinterpretation of CBC data. Current Interpretive Data was last revised on 2017. Basophil pct 0.4 % [facility] Comment: Interpretive Data Percent cell count reference ranges are not reported, since discordance with absolute values may lead to misinterpretation of CBC data. Current Interpretive Data was last revised on 2017. Blood 12/24/2024 4:40 AM CDT 12/24/2024 6:35 AM CDT us Bazgha Frederick Ahmad DO LAB BLOOD ORDERABLES [place] l Result [facility] [address] Department [place] [address] * (ABNORMAL) CBC with auto differential (12/24/2024 4:40 AM CDT) [facility] WBC 8.01 3.80 - 9.90 K/cumm Hgb 12.0(L) 13.0 - 17.5 g/dL [facility] Hct 39.9 38.9 - 50.3 % [facility] Plt 203 150 - 400 K/cumm [facility] MPV 9.8 9.1 - 12.3 fL [facility] RBC 4.16(L) 4.30 - 5.80 M/cumm [facility] MCV 95.9 81.3 - 96.4 fL [facility] MCH 28.8 27.1 - 33.3 pg [facility] MCHC 30.1(L) 32.3 - 35.7 g/dL [facility] RDW CV 14.8 11.1 - 14.9 % [facility] RDW SD 52.1(H) 35.7 - 48.1 fL [facility] NRBC abs 0.00 0.00 - 0.01 K/cumm [facility] Blood 12/24/2024 4:40 AM CDT 12/24/2024 6:35 AM CDT Bazgha Frederick Ahmad DO LAB BLOOD ORDERABLES [place] l Result [facility] [address] Department [place] [address] * (ABNORMAL) Basic metabolic panel (12/24/2024 4:40 AM CDT) [facility] Sodium 142 135 - 145 mmol/L Potassium, pl 3.7 3.3 - 4.9 mmol/L [facility] Chloride 106 97 - 110 mmol/L [facility] CO2 23 22 - 32 mmol/L [facility] Anion gap 13 2 - 15 mmol/L [facility] BUN 23 6 - 25 mg/dL [facility] Creatinine 1.44(H) 0.80 - 1.30 mg/dL [facility] Glucose 105 70 - 199 mg/dL [facility] Comment: Interpretive Data Fasting glucose >/= [...] 2022. Calcium 8.8 8.5 - 10.3 mg/dL [facility] Blood 12/24/2024 4:40 AM CDT 12/24/2024 6:35 AM CDT Ada Mack Ahkenisha DO LAB BLOOD ORDERABLES [place] l Result [facility] [address] Department [place] [address] * (ABNORMAL) eGFR (12/23/2024 4:03 AM CDT) eGFR 45(L) >=60 mL/min/1. 73 [...] interpretive data was last reviewed 2021. Blood 12/23/2024 4:03 AM CDT 12/23/2024 4:23 AM CDT Bazgha Frederick Ahmad DO LAB BLOOD ORDERABLES [place] l Result [facility] [address] Department [place] [address] * (ABNORMAL) Differential, auto (12/23/2024 4:03 AM CDT) Neutrophil abs 6.98(H) 1.50 - 6.50 K/cumm Imm gran abs 0.07 0.00 - 0.10 K/cumm [facility] Lymphocyte abs 0.63(L) 0.80 - 3.30 K/cumm [facility] Monocyte abs 0.72 0.20 - 0.80 K/cumm [facility] Eosinophil abs 0.49 0.00 - 0.50 K/cumm [facility] Basophil abs 0.04 0.00 - 0.10 K/cumm [facility] Neutrophil pct 78.1 % [facility] Comment: Interpretive Data Percent cell count reference ranges are not reported, since discordance with absolute values may lead to misinterpretation of CBC data. Current Interpretive Data was last revised on 2017. Imm gran pct 0.8 % [facility] Comment: Interpretive Data Percent cell count reference ranges are not reported, since discordance with absolute values may lead to misinterpretation of CBC data. Current Interpretive Data was last revised on 2017. Lymphocyte pct 7.1 % [facility] Comment: Interpretive Data Percent cell count reference ranges are not reported, since discordance with absolute values may lead to misinterpretation of CBC data. Current Interpretive Data was last revised on 2017. Monocyte pct 8.1 % [facility] Comment: Interpretive Data Percent cell count reference ranges are not reported, since discordance with absolute values may lead to misinterpretation of CBC data. Current Interpretive Data was last revised on 2017. Eosinophil pct 5.5 % [facility] Comment: Interpretive Data Percent cell count reference ranges are not reported, since discordance with absolute values may lead to misinterpretation of CBC data. Current Interpretive Data was last revised on 2017. Basophil pct 0.4 % [facility] Comment: Interpretive Data Percent cell count reference ranges are not reported, since discordance with absolute values may lead to misinterpretation of CBC data. Current Interpretive Data was last revised on 2017. Blood 12/23/2024 4:03 AM CDT 12/23/2024 4:22 AM CDT us Aad Stuart DO LAB BLOOD ORDERABLES [place] nicole Result [facility] [address] Department [place] [address] * (ABNORMAL) CBC with auto differential (12/23/2024 4:03 AM CDT) WBC 8.93 3.80 - 9.90 K/cumm Hgb 11.7(L) 13.0 - 17.5 g/dL [facility] Hct 37.7(L) 38.9 - 50.3 % [facility] Plt 196 150 - 400 K/cumm [facility] MPV 9.7 9.1 - 12.3 fL [facility] RBC 3.95(L) 4.30 - 5.80 M/cumm [facility] MCV 95.4 81.3 - 96.4 fL [facility] MCH 29.6 27.1 - 33.3 pg [facility] MCHC 31.0(L) 32.3 - 35.7 g/dL [facility] RDW CV 14.9 11.1 - 14.9 % [facility] RDW SD 51.9(H) 35.7 - 48.1 fL [facility] NRBC abs 0.00 0.00 - 0.01 K/cumm [facility] Blood 12/23/2024 4:03 AM CDT 12/23/2024 4:22 AM CDT [facility] DoughertyFrederick Ahmad DO LAB BLOOD ORDERABLES [place] l Result [facility] [address] Department [place] [address] * (ABNORMAL) Basic metabolic panel (12/23/2024 4:03 AM CDT) Sodium 143 135 - 145 mmol/L Potassium, pl 3.6 3.3 - 4.9 mmol/L [facility] Chloride 107 97 - 110 mmol/L [facility] CO2 23 22 - 32 mmol/L [facility] Anion gap 13 2 - 15 mmol/L [facility] BUN 27(H) 6 - 25 mg/dL [facility] Creatinine 1.62(H) 0.80 - 1.30 mg/dL [facility] Glucose 119 70 - 199 mg/dL [facility] Comment: Interpretive Data Fasting glucose >/= [...] 2022. Calcium 8.8 8.5 - 10.3 mg/dL [facility] Blood 12/23/2024 4:03 AM CDT 12/23/2024 4:23 AM CDT Ada Doughertyiaz Ahmad DO LAB BLOOD ORDERABLES [place] l Result Performing Organization Address [facility]/ZIP Co de Phone Number [facility] [address] Department [place] [address] * CT KUB Stone WO Contrast (12/22/2024 4:16 PM CDT) Anatomical Region Laterality Modality Abdomen N/A Computed Tomogra phy 12/22/2024 6:14 PM CDT Impressions 12/22/2024 6:14 PM CDT 1. Left double pigtail ureteral stent in place with left collecting system decompressed. There is diffuse urothelial thickening of the entire path of the left ureter with infiltration adjacent fat uncertain etiology. Question reactive secondary to left ureteral stent versus possible left urinary tract infection. 2. Unchanged large bilateral renal cysts. Unchanged pedunculated calcified left renal mass and additional smaller calcified lesions within both kidneys. There is no urinary obstruction. 3. Bladder is decompressed by Beckham catheter with diffuse wall thickening and infiltration adjacent fat. There is enlarged prostate compressing posterior inferior bladder. Correlate for cystitis. 4. Unchanged cholelithiasis. Electronically signed by: Philly Nam M.D. Narrative 12/22/2024 6:[address] ABDOMEN AND PELVIS WITHOUT CONTRAST DATE: 12/22/2024 3:35 PM INDICATION: History of bladder stones s/p recent cystolitholapaxy with left ureteral stent placement. Now with UTI and bacteremia TECHNIQUE: Helical images of the abdomen and pelvis were performed in the axial plane without IV contrast. COMPARISON: 08/24/2024 FINDINGS: Visualized left and right lower lung clear. Heart size normal without significant pericardial thickening or effusion. CT Abdomen and Pelvis: Diffuse hepatic steatosis. Numerous calcified gallstones with within the dependent gallbladder and gallstones within the common duct or gallbladder neck also seen previously. Correlate for symptoms. Spleen, left adrenal gland and visualized pancreas unremarkable. Nodular low-density lesion right adrenal gland unchanged may represent adenoma or myelolipoma. Small hiatal hernia. Stomach is decompressed. No small bowel dilatation. Partially decompressed colon with retained air and fluid with diverticulosis. Normal appendix. No pericecal inflammation. Partially decompressed splenic flexure and descending colon and redundant sigmoid with diverticulosis without diverticulitis. Rectum decompressed. Calcification abdominal aorta and iliac arteries. Small retroperitoneal lymph nodes. Exophytic mass arising from left kidney demonstrate coarse calcification as seen previously. Additional small calcified cortical lesion anterior left kidney unchanged. Large left renal cyst unchanged. There is a left double pigtail ureteral stent in place with proximal pigtail within decompressed left upper collecting system. The left ureteral stent can be followed into the left posterior bladder within the diffusely thick wall left ureter with urothelial thickening and infiltration of the left periureteral fat. There is also thickening of peritoneal reflection left lateral pelvic sidewall along the path of the left ureter. There is a Beckham catheter balloon contained within decompressed diffusely thick wall bladder with the distal pigtail of the ureteral stent within the left posterior bladder. There is significant infiltration of the adipose tissue adjacent to decompressed bladder. There is heterogeneous enlarged prostate compressing posterior inferior bladder. The bladder stones within the bladder on prior study is not seen at this time and probably has been removed. Correlate for symptoms of cystitis. Large right renal cyst unchanged. There is calcification associated with a small cortical lesion anterior right kidney unchanged. Mild prominent right renal pelvis with right ureter small which can be followed to the right posterior bladder. No ascites. Small inguinal lymph nodes. Osteopenia with multilevel degenerative endplate changes and spondylosis lower thoracic and lumbar spine. Procedure Note Philly Nam MD - 12/22/2024 CT ABDOMEN AND PELVIS WITHOUT CONTRAST DATE: 12/22/2024 3:35 PM INDICATION: History of bladder stones s/p recent cystolitholapaxy with left ureteral stent placement. Now with UTI and bacteremia TECHNIQUE: Helical images of the abdomen and pelvis were performed in the axial plane without IV contrast. COMPARISON: 08/24/2024 FINDINGS: Visualized left and right lower lung clear. Heart size normal without significant pericardial thickening or effusion. CT Abdomen and Pelvis: Diffuse hepatic steatosis. Numerous calcified gallstones with within the dependent gallbladder and gallstones within the common duct or gallbladder neck also seen previously. Correlate for symptoms. Spleen, left adrenal gland and visualized pancreas unremarkable. Nodular low-density lesion right adrenal gland unchanged may represent adenoma or myelolipoma. Small hiatal hernia. Stomach is decompressed. No small bowel dilatation. Partially decompressed colon with retained air and fluid with diverticulosis. Normal appendix. No pericecal inflammation. Partially decompressed splenic flexure and descending colon and redundant sigmoid with diverticulosis without diverticulitis. Rectum decompressed. Calcification abdominal aorta and iliac arteries. Small retroperitoneal lymph nodes. Exophytic mass arising from left kidney demonstrate coarse calcification as seen previously. Additional small calcified cortical lesion anterior left kidney unchanged. Large left renal cyst unchanged. There is a left double pigtail ureteral stent in place with proximal pigtail within decompressed left upper collecting system. The left ureteral stent can be followed into the left posterior bladder within the diffusely thick wall left ureter with urothelial thickening and infiltration of the left periureteral fat. There is also thickening of peritoneal reflection left lateral pelvic sidewall along the path of the left ureter. There is a Beckham catheter balloon contained within decompressed diffusely thick wall bladder with the distal pigtail of the ureteral stent within the left posterior bladder. There is significant infiltration of the adipose tissue adjacent to decompressed bladder. There is heterogeneous enlarged prostate compressing posterior inferior bladder. The bladder stones within the bladder on prior study is not seen at this time and probably has been removed. Correlate for symptoms of cystitis. Large right renal cyst unchanged. There is calcification associated with a small cortical lesion anterior right kidney unchanged. Mild prominent right renal pelvis with right ureter small which can be followed to the right posterior bladder. No ascites. Small inguinal lymph nodes. Osteopenia with multilevel degenerative endplate changes and spondylosis lower thoracic and lumbar spine. IMPRESSION: 1. Left double pigtail ureteral stent in place with left collecting system decompressed. There is diffuse urothelial thickening of the entire path of the left ureter with infiltration adjacent fat uncertain etiology. Question reactive secondary to left ureteral stent versus possible left urinary tract infection. 2. Unchanged large bilateral renal cysts. Unchanged pedunculated calcified left renal mass and additional smaller calcified lesions within both kidneys. There is no urinary obstruction. 3. Bladder is decompressed by Beckham catheter with diffuse wall thickening and infiltration adjacent fat. There is enlarged prostate compressing posterior inferior bladder. Correlate for cystitis. 4. Unchanged cholelithiasis. Electronically signed by: Philly Nam M.D. Lianna Pierson NP IMG CT PROCEDURES Final R esult * Blood culture Blood (12/22/2024 10:53 AM CDT) Report Final Report: No growth Blood 12/22/2024 10:5 3 AM CDT 12/22/2024 11:14 AM CDT Camille AMOR [facility] - 12/27/2024 1:00 PM CDT From a different site than #1. Interpretive Data 1. Blood cultures are incubated and monitored continuously for 5 days (120 hours). The first negative report is issued within 24 hours of receipt in the laboratory. 2. All positive cultures are resulted and called to physicians/care providers as soon as they are detected. 3. A rapid molecular test for organism identification may be performed using the [employer] Blood Culture Identification panel. This assay detects microbial DNA in a blood culture broth. This assay has been cleared by the [facility] Food and Drug Administration and its performance characteristics have been verified by the [facility]. Interpretive data was last revised on July 11, 2022. [facility] [place] LAB MICROBIOLOGY - GENERA L ORDERABLES Final Result Performing Organization Address City/[facility]/ZIP Co de Phone Number [facility] [address] [place] [employer] [address] * Blood culture Blood (12/22/2024 10:53 AM CDT) Report Final Report: No growth Blood 12/22/2024 10:5 3 AM CDT 12/22/2024 11:14 AM CDT Narrative [facility] - 12/27/2024 1:00 PM CDT Interpretive Data 1. Blood cultures are incubated and monitored continuously for 5 days (120 hours). The first negative report is issued within 24 hours of receipt in the laboratory. 2. All positive cultures are resulted and called to physicians/care providers as soon as they are detected. 3. A rapid molecular test for organism identification may be performed using the [employer] Blood Culture Identification panel. This assay detects microbial DNA in a blood culture broth. This assay has been cleared by the [place] Food and Drug Administration and its performance characteristics have been verified by the [facility]. Interpretive data was last revised on July 11, 2022. [facility] - GENERA L ORDERABLES Final Result Performing Organization Address City/[facility]/ZIP Co de Phone Number [facility] [address] Department [employer] [place], [place] [id number] * Glycohemoglobin A1C - Add on lab test (12/22/2024 8:56 AM CDT) Acceptable Yes Blood 12/22/2024 8:56 AM CDT 12/22/2024 8:56 AM CDT Narrative [place] [facility] - 12/22/2024 8:57 AM CDT Name of Test->Glycohemoglobin A1C Ada Stuart DO LAB BLOOD ORDERABLES Angeles l Result [facility] [address] [place] [place] [address] * (ABNORMAL) eGFR (12/22/2024 5:55 AM CDT) eGFR 44(L) >=60 mL/min/1. 73 m2 Comment: Interpretive Data [...] interpretive data was last reviewed 2021. Blood 12/22/2024 5:55 AM CDT 12/22/2024 6:54 AM CDT us Imani Calzada MD LAB BLOOD ORDERABLES Final Resul t [facility] [address] Department [place] [address] * (ABNORMAL) Differential, auto (12/22/2024 5:55 AM CDT) Neutrophil abs 8.26(H) 1.50 - 6.50 K/cumm Imm gran abs 0.05 0.00 - 0.10 K/cumm [facility] Lymphocyte abs 0.68(L) 0.80 - 3.30 K/cumm [facility] Monocyte abs 0.95(H) 0.20 - 0.80 K/cumm [facility] Eosinophil abs 0.20 0.00 - 0.50 K/cumm [facility] Basophil abs 0.04 0.00 - 0.10 K/cumm [facility] Neutrophil pct 81.1 % [facility] Comment: Interpretive Data Percent cell count reference ranges are not reported, since discordance with absolute values may lead to misinterpretation of CBC data. Current Interpretive Data was last revised on 2017. Imm gran pct 0.5 % [facility] Comment: Interpretive Data Percent cell count reference ranges are not reported, since discordance with absolute values may lead to misinterpretation of CBC data. Current Interpretive Data was last revised on 2017. Lymphocyte pct 6.7 % [facility] Comment: Interpretive Data Percent cell count reference ranges are not reported, since discordance with absolute values may lead to misinterpretation of CBC data. Current Interpretive Data was last revised on 2017. Monocyte pct 9.3 % [facility] Comment: Interpretive Data Percent cell count reference ranges are not reported, since discordance with absolute values may lead to misinterpretation of CBC data. Current Interpretive Data was last revised on 2017. Eosinophil pct 2.0 % [facility] Comment: Interpretive Data Percent cell count reference ranges are not reported, since discordance with absolute values may lead to misinterpretation of CBC data. Current Interpretive Data was last revised on 2017. Basophil pct 0.4 % [facility] Comment: Interpretive Data Percent cell count reference ranges are not reported, since discordance with absolute values may lead to misinterpretation of CBC data. Current Interpretive Data was last revised on 2017. Blood 12/22/2024 5:55 AM CDT 12/22/2024 6:54 AM CDT Imani Calzada MD LAB BLOOD ORDERABLES Final Resul t Performing Organization Address City/[facility]/ZIP Co de Phone Number [facility] [address] Department [place] [address] * (ABNORMAL) CBC with auto differential (12/22/2024 5:55 AM CDT) Pathologist [facility] WBC 10.18(H) 3.80 - 9.90 K/cumm Hgb 11.6(L) 13.0 - 17.5 g/dL [facility] Hct 37.5(L) 38.9 - 50.3 % [facility] Plt 198 150 - 400 K/cumm [facility] Comment:Consistent with prev ious result. MPV 9.5 9.1 - 12.3 fL [facility] RBC 3.86(L) 4.30 - 5.80 M/cumm [facility] MCV 97.2(H) 81.3 - 96.4 fL [facility] MCH 30.1 27.1 - 33.3 pg [facility] MCHC 30.9(L) 32.3 - 35.7 g/dL [facility] RDW CV 15.2(H) 11.1 - 14.9 % [facility] RDW SD 53.5(H) 35.7 - 48.1 fL [facility] NRBC abs 0.00 0.00 - 0.01 K/cumm [facility] Blood 12/22/2024 5:55 AM CDT 12/22/2024 6:54 AM CDT Imani Calzada MD LAB BLOOD ORDERABLES Final Resul t Performing Organization Address City/[facility]/ZIP Co de Phone Number [facility] [address] Department [place] [address] * (ABNORMAL) Hemoglobin A1c (12/22/2024 5:55 AM CDT) Pathologist [facility] Hgb A1C 5.9(H) 4.0 - 5.6 % Estimated Average Glucose 123 mg/dL [facility] Comment: The ADA recommends reporting an estimated Average Glucose (eAG) with all Hemoglobin A1c results using the equation derived from a study of 507 normal and diabetic adults. Minority populations were underrepresented and children were not included. (Diabetes Care 31:4070-3026, 2008). The eAG is not equivalent to a fasting glucose. Blood 12/22/2024 5:55 AM CDT 12/22/2024 6:54 AM CDT us Bazgha Frederick Ahmad DO LAB BLOOD ORDERABLES [place] nicole Result [facility] [address] Department [place] [address] * (ABNORMAL) Basic metabolic panel (12/22/2024 5:55 AM CDT) [facility] Sodium 141 135 - 145 mmol/L Potassium, pl 3.7 3.3 - 4.9 mmol/L [facility] Chloride 107 97 - 110 mmol/L [facility] CO2 20(L) 22 - 32 mmol/L [facility] Anion gap 14 2 - 15 mmol/L [facility] BUN 30(H) 6 - 25 mg/dL [facility] Creatinine 1.65(H) 0.80 - 1.30 mg/dL [facility] Glucose 123 70 - 199 mg/dL [facility] Comment: Interpretive Data Fasting glucose >/= [...] 2022. Calcium 8.5 8.5 - 10.3 mg/dL [facility] Blood 12/22/2024 5:55 AM CDT 12/22/2024 6:54 AM CDT us Imani Calzada MD LAB BLOOD ORDERABLES Final Resul t [facility] [address] Department [place] [address] * (ABNORMAL) Urinalysis reflex to microscopic and culture Urine, bladder (12/21/2024 4:16 PM CDT) Color, ur Yellow Yellow Clarity, ur Turbid(A) Clear [facility] Specific gravity, ur 1.011 1.003 - 1.030 [facility] pH, urine 6.0 [facility] Comment: Interpretive Data U rine pH is affected by diet, medications, systemic acid-base disturbances, and renal tubular function. pH may affect urinary stone formation. For example, urine pH below 6.0 may help reduce the tendency for calcium phosphate stones and pH greater than 6.0 may reduce the tendency for uric acid stone formation. Source: [facility] Current Interpretive Data was last revised on 2017 Protein, ur ql 1+(A) Negative [facility] Glucose, ur ql Negative Negative [facility] Ketones, ur Negative Negative [facility] Bilirubin, ur Negative Negative [facility] Blood, ur 2+(A) Negative [facility] Urobilinogen, ur <2.0 <2.0 mg/dL [facility] Nitrite, ur Positive(A) Negative [facility] Leukocyte esterase, ur 4+(A) Negative [facility] UA reflex comment Reflex to microscopic UA will be performed. [facility] Urine, bladder 12/21/2024 4: 16 PM CDT 12/21/2024 4:32 PM CDT us Freddy Jiménez MD LAB MICROBIOLOGY - GEN ERAL ORDERABLES Final Result [facility] [address] Department [place] [address] * (ABNORMAL) Urinalysis, microscopic only (12/21/2024 4:16 PM CDT) WBC, ur >50(A) 0 - 5 /HPF RBC, ur 11-20(A) 0 - 2 /HPF [facility] Bacteria, ur 2+(A) [facility] Mucous, ur Present(A) [facility] Culture Reflex Comment Reflex to urine culture will be performed. [facility] Urine, bladder 12/21/2024 4: 16 PM CDT 12/21/2024 4:32 PM CDT us Freddy Jiménez MD LAB URINE ORDERABLES F inal Result [facility] [address] Department [place] [address] * (ABNORMAL) Urine culture Urine, bladder (12/21/2024 4:16 PM CDT) Report Final Report: 50,000 to less than 100,000 colonies/ml of Cronobacter species 50,000 to less than 100,000 colonies/ml of Klebsiella oxytoca/Raoultella ornithinolytica (.) Organism CRONOBACTER SPECIES [facility] Organism KLEBSIELLA OXYTOCA/RAOULTELLA ORNITHINOLYTICA [facility] Urine, bladder 12/21/2024 4: 16 PM CDT 12/21/2024 7:21 PM CDT Narrative [facility] - 12/24/2024 7:39 AM CDT Urine culture reflexed based upon urinalysis results. Organism Antibiotic Method Susceptibility Cronobacter species Amoxicillin with Clavulanic Acid (TORRES) INTERPRETATION Resistant Cronobacter species Cefazolin (TORRES) INTERPRETATION Resistant Cronobacter species Cefepime (TORRES) INTERPRETATION Susceptible Cronobacter species Ceftriaxone (TORRES) INTERPRETATION Resistant Cronobacter species Ciprofloxacin (TORRES) INTERPRETATION Susceptible Cronobacter species Gentamicin (TORRES) INTERPRETATION Susceptible Cronobacter species Levofloxacin (TORRES) INTERPRETATION Susceptible Cronobacter species Nitrofurantoin (TORRES) INTERPRETATIO N Resistant Cronobacter species Piperacillin/Tazobactam (TORRES) INTE RPRETATION Resistant Cronobacter species Trimethoprim with Sulfamethoxazole (TORRES) INTERPRETATION Susceptible Klebsiella oxytoca/Raoultella ornithinolytica Ampicillin with Sulbactam (TORRES) INTERPRETATION Susceptible Klebsiella oxytoca/Raoultella ornithinolytica Cefazolin (TORRES) INTERPRETATION Susceptible Klebsiella oxytoca/Raoultella ornithinolytica Ciprofloxacin (TORRES) INTERPRETATION Susceptible Klebsiella oxytoca/Raoultella ornithinolytica Gentamicin (TORRES) INTERPRETATION Susceptible Klebsiella oxytoca/Raoultella ornithinolytica Levofloxacin (TORRES) INTERPRETATION Susceptible Klebsiella oxytoca/Raoultella ornithinolytica Meropenem (TORRES) INTERPRETATION Susceptible Klebsiella oxytoca/Raoultella ornithinolytica Nitrofurantoin (TORRES) INTERPRETATION Resistant Klebsiella oxytoca/Raoultella ornithinolytica Trimethoprim with Sulfamethoxazole (TORRES) INTERPRETATION Susceptible us Freddy Jiménez MD LAB MICROBIOLOGY - GEN ERAL ORDERABLES Final Result Performing Organization Address City/[facility]/ZIP Co de Phone Number [facility] [address] Department [place] [address] * Blood culture Blood (12/21/2024 1:22 PM CDT) Report Final Report: No growth Blood 12/21/2024 1:22 PM CDT 12/21/2024 1:35 PM CDT Narrative [place] [facility] - 12/27/2024 7:01 AM CDT From a different site [...] organism identification may be performed using the [employer] Blood Culture Identification panel. This assay detects microbial DNA in a blood culture broth. This assay has been cleared by the [place] Food and Drug Administration and its performance characteristics have been verified by the [facility]. Interpretive data was last revised on July 11, 2022. us Christiano Bucio DO LAB MICROBIOLOGY - GENERAL ORDERABLES Final Result [facility] [address] Department [place] [address] * (ABNORMAL) Blood culture Blood (12/21/2024 1:22 PM CDT) Direct Specimen Exam Molecular Analysis: Enterobacterales detected by the [employer] Blood Culture Identification Panel. This test does not exclude the possibility of a mixed bacterial infection. Test result called to and read back by SEAN CANTOR RN on 12/22/2024 04:51:55 by [id number] Direct Specimen Exam Stain: Gram Negative Bacilli [facility] Report Final Report: Cronobacter species Klebsiella oxytoca/Raoultella ornithinolytica Pseudescherichia vulneris (.) [facility] Organism CRONOBACTER SPECIES [facility] Organism KLEBSIELLA OXYTOCA/RAOULTELLA ORNITHINOLYTICA [facility] Organism PSEUDESCHERICHIA VULNERIS [facility] Blood 12/21/2024 1:22 PM CDT 12/21/2024 1:35 PM CDT Narrative [facility] - 12/27/2024 8:45 AM CDT Collection->Peripheral Interpretive Data 1. Blood cultures are incubated and monitored continuously for 5 days (120 hours). The first negative report is issued within 24 hours of receipt in the laboratory. 2. All positive cultures are resulted and called to physicians/care providers as soon as they are detected. 3. A rapid molecular test for organism identification may be performed using the [employer] Blood Culture Identification panel. This assay detects microbial DNA in a blood culture broth. This assay has been cleared by the [place] Food and Drug Administration and its performance characteristics have been verified by the [facility]. Interpretive data was last revised on July 11, 2022. Organism Antibiotic Method Susceptibility Cronobacter species Amoxicillin with Clavulanic Acid (TORRES) INTERPRETATION Resistant Cronobacter species Cefazolin (TORRES) INTERPRETATION Resistant Cronobacter species Cefepime (TORRES) INTERPRETATION Susceptible Cronobacter species Ceftriaxone (TORRES) INTERPRETATION Resistant Cronobacter species Ciprofloxacin (TORRES) INTERPRETATION Susceptible Cronobacter species Gentamicin (TORRES) INTERPRETATION Susceptible Cronobacter species Levofloxacin (TORRES) INTERPRETATION Susceptible Cronobacter species Piperacillin/Tazobactam (TORRES) INTE RPRETATION Resistant Cronobacter species Trimethoprim with Sulfamethoxazole (TORRES) INTERPRETATION Susceptible Klebsiella oxytoca/Raoultella ornithinolytica Ampicillin with Sulbactam (TORRES) INTERPRETATION Susceptible Klebsiella oxytoca/Raoultella ornithinolytica Cefazolin (TORRES) INTERPRETATION Susceptible Klebsiella oxytoca/Raoultella ornithinolytica Ciprofloxacin (TORRES) INTERPRETATION Susceptible Klebsiella oxytoca/Raoultella ornithinolytica Gentamicin (TORRES) INTERPRETATION Susceptible Klebsiella oxytoca/Raoultella ornithinolytica Levofloxacin (TORRES) INTERPRETATION Susceptible Klebsiella oxytoca/Raoultella ornithinolytica Meropenem (TORRES) INTERPRETATION Susceptible Klebsiella oxytoca/Raoultella ornithinolytica Trimethoprim with Sulfamethoxazole (TORRES) INTERPRETATION Susceptible Pseudescherichia vulneris Ampicillin with Sulbactam (TORRES) INTERPRETATION Susceptible Pseudescherichia vulneris Cefazolin (TORRES) INTERPRETATION Susceptible Pseudescherichia vulneris Ciprofloxacin (TORRES) INTERPRETATION Susceptible Pseudescherichia vulneris Gentamicin (TORRES) INTERPRETATION Susceptible Pseudescherichia vulneris Levofloxacin (TORRES) INTERPRETATION Susceptible Pseudescherichia vulneris Trimethoprim with Sulfamethoxazole (TORRES) INTERPRETATION Susceptible Christiano Bucio DO LAB MICROBIOLOGY - GENERAL ORDERABLES Final Result [facility] [address] Department [place] [address] * Sepsis Lactate w/ Reflex (12/21/2024 1:17 PM CDT) [facility] Sepsis Lactate 1.8 0.7 - 2.0 mmol/L Blood 12/21/2024 1:17 PM CDT 12/21/2024 1:36 PM CDT Christiano Bucio DO LAB BLOOD ORDERABLES Final Result [facility] [address] Department of [employer] [place], [place] [id number] * (ABNORMAL) eGFR (12/21/2024 1:17 PM CDT) [facility] eGFR 41(L) >=60 mL/min/1. 73 m2 Comment: Interpretive Data [...] interpretive data was last reviewed 2021. Blood 12/21/2024 1:17 PM CDT 12/21/2024 1:57 PM CDT Christiano Bucio DO LAB BLOOD ORDERABLES Final Result [facility] [address] Department [place] [address] * (ABNORMAL) Differential, auto (12/21/2024 1:17 PM CDT) Neutrophil abs 11.79(H) 1.50 - 6.50 K/cumm Imm gran abs 0.06 0.00 - 0.10 K/cumm [facility] Lymphocyte abs 0.27(L) 0.80 - 3.30 K/cumm [facility] Monocyte abs 1.13(H) 0.20 - 0.80 K/cumm [facility] Eosinophil abs 0.06 0.00 - 0.50 K/cumm [facility] Basophil abs 0.04 0.00 - 0.10 K/cumm [facility] Neutrophil pct 88.4 % [facility] Comment: Interpretive Data Percent cell count reference ranges are not reported, since discordance with absolute values may lead to misinterpretation of CBC data. Current Interpretive Data was last revised on 2017. Imm gran pct 0.4 % [facility] Comment: Interpretive Data Percent cell count reference ranges are not reported, since discordance with absolute values may lead to misinterpretation of CBC data. Current Interpretive Data was last revised on 2017. Lymphocyte pct 2.0 % [facility] Comment: Interpretive Data Percent cell count reference ranges are not reported, since discordance with absolute values may lead to misinterpretation of CBC data. Current Interpretive Data was last revised on 2017. Monocyte pct 8.5 % [facility] Comment: Interpretive Data Percent cell count reference ranges are not reported, since discordance with absolute values may lead to misinterpretation of CBC data. Current Interpretive Data was last revised on 2017. Eosinophil pct 0.4 % [facility] Comment: Interpretive Data Percent cell count reference ranges are not reported, since discordance with absolute values may lead to misinterpretation of CBC data. Current Interpretive Data was last revised on 2017. Basophil pct 0.3 % [facility] Comment: Interpretive Data Percent cell count reference ranges are not reported, since discordance with absolute values may lead to misinterpretation of CBC data. Current Interpretive Data was last revised on 2017. Blood 12/21/2024 1:17 PM CDT 12/21/2024 1:57 PM CDT us Christiano Bucio DO LAB BLOOD ORDERABLES Final Result [facility] [address] Department [place] [address] * (ABNORMAL) CBC with auto differential (12/21/2024 1:17 PM CDT) WBC 13.35(H) 3.80 - 9.90 K/cumm Hgb 12.5(L) 13.0 - 17.5 g/dL [facility] Hct 39.3 38.9 - 50.3 % [facility] Plt 209 150 - 400 K/cumm [facility] MPV 9.2 9.1 - 12.3 fL [facility] RBC 4.16(L) 4.30 - 5.80 M/cumm [facility] MCV 94.5 81.3 - 96.4 fL [facility] MCH 30.0 27.1 - 33.3 pg [facility] MCHC 31.8(L) 32.3 - 35.7 g/dL [facility] RDW CV 14.8 11.1 - 14.9 % [facility] RDW SD 51.0(H) 35.7 - 48.1 fL [facility] NRBC abs 0.00 0.00 - 0.01 K/cumm [facility] Blood 12/21/2024 1:17 PM CDT 12/21/2024 1:57 PM CDT Christiano Bucio DO LAB BLOOD ORDERABLES Final Result [facility] [address] Department [place] [address] * (ABNORMAL) Urine culture Urine, bladder (12/21/2024 1:17 PM CDT) Report Final Report: 50,000 to less than 100,000 colonies/ml of Klebsiella (Enterobacter) aerogenes 50,000 to less than 100,000 colonies/ml of Cronobacter species Susceptibility reported on this organism on previous culture [id number] (.) Organism KLEBSIELLA (ENTEROBACTER) AEROGENES [facility] Organism CRONOBACTER SPECIES [facility] Urine, bladder 12/21/2024 1: 17 PM CDT 12/21/2024 1:57 PM CDT Narrative [facility] - 12/24/2024 7:42 AM CDT Indications for Culture:->Other (specify) Other Indication:->kidney stone Organism Antibiotic Method Susceptibility Klebsiella (Enterobacter) aerogenes Amoxicillin with Clavulanic Acid (TORRES) INTERPRETATION Resistant Klebsiella (Enterobacter) aerogenes Cefazolin (TORRES) INTERPRETATION Resistant Klebsiella (Enterobacter) aerogenes Cefepime (TORRES) INTERPRETATION Susceptible Klebsiella (Enterobacter) aerogenes Ceftriaxone (TORRES) INTERPRETATION Resistant Klebsiella (Enterobacter) aerogenes Ciprofloxacin (TORRES) INTERPRETATION Susceptible Klebsiella (Enterobacter) aerogenes Gentamicin (TORRES) INTERPRETATION Susceptible Klebsiella (Enterobacter) aerogenes Levofloxacin (TORRES) INTERPRETATION Susceptible Klebsiella (Enterobacter) aerogenes Nitrofurantoin (TORRES) INTERPRETATION Intermediate Klebsiella (Enterobacter) aerogenes Piperacillin/Tazobactam (TORRES) INTERPRETATION Resistant Klebsiella (Enterobacter) aerogenes Trimethoprim with Sulfamethoxazole (TORRES) INTERPRETATION Susceptible Christiano Bucio DO LAB MICROBIOLOGY - GENERAL ORDERABLES Final Result [facility] [address] Department [place] [address] * (ABNORMAL) Comprehensive metabolic panel (12/21/2024 1:17 PM CDT) Sodium 143 135 - 145 mmol/L Potassium, pl 3.8 3.3 - 4.9 mmol/L [facility] Chloride 106 97 - 110 mmol/L [facility] CO2 22 22 - 32 mmol/L [facility] Anion gap 15 2 - 15 mmol/L [facility] BUN 30(H) 6 - 25 mg/dL [facility] Creatinine 1.73(H) 0.80 - 1.30 mg/dL [facility] Glucose 120 70 - 199 mg/dL [facility] Comment: Interpretive Data Fasting glucose >/= [...] interpretive data was last revised 2022. Calcium 9.3 8.5 - 10.3 mg/dL [facility] Bilirubin, total 0.8 0.1 - 1.2 mg/dL [facility] Protein, pl 5.7(L) 6.5 - 8.5 g/dL [facility] Albumin 3.7 3.5 - 5.0 g/dL [facility] Alk phos 69 40 - 130 Units/L [facility] ALT 18 7 - 55 Units/L [facility] AST 22 10 - 50 Units/L [facility] Comment:Slightly Hemolyzed S pecimen Blood 12/21/2024 1:17 PM CDT 12/21/2024 1:57 PM CDT Christiano Bucio DO LAB BLOOD ORDERABLES Final Result Performing Organization Address [facility] Co de Phone Number [facility] [address] Department [place] [address] * ECG 12 lead (12/21/2024 1:13 PM CDT) 12/21/2024 1:13 PM CDT Narrative [facility] - 12/22/2024 2:06 PM CDT Vent Rate: 109 bpm RR Interval: 549 msec LA Interval: 139 msec QRS Duration: 104 msec QT Interval: 320 msec QTC Interval: 384 msec P-R-T [place]: 76 - -9 - 74 degrees IMPRESSION: SINUS TACHYCARDIA INCOMPLETE RIGHT BUNDLE-BRANCH BLOCK MODERATE ST DEPRESSION [0.05+ mV ST DEPRESSION] ABNORMAL ECG Electronically Signed By: Edin Eng MD, [facility] Christiano Bucio DO ECG ORDERABLES Final Resul t Performing Organization Address [facility] de Phone Number [facility] [employer] [facility] * (ABNORMAL) eGFR (12/17/2024 8:02 AM CDT) eGFR 47(L) >=60 mL/min/1. 73 m2 Comment: Interpretive Data [...] interpretive data was last reviewed 2021. Blood 12/17/2024 8:02 AM CDT 12/17/2024 8:09 AM CDT us Lianna Pierson NP LAB BLOOD ORDERABLES Angeles bonnie Result [facility] [address] Department [place] [address] * (ABNORMAL) Differential, auto (12/17/2024 8:02 AM CDT) Neutrophil abs 11.50(H) 1.50 - 6.50 K/cumm Imm gran abs 0.05 0.00 - 0.10 K/cumm [facility] Lymphocyte abs 0.72(L) 0.80 - 3.30 K/cumm [facility] Monocyte abs 0.92(H) 0.20 - 0.80 K/cumm [facility] Eosinophil abs 0.00 0.00 - 0.50 K/cumm [facility] Basophil abs 0.02 0.00 - 0.10 K/cumm [facility] Neutrophil pct 86.9 % [facility] Comment: Interpretive Data Percent cell count reference ranges are not reported, since discordance with absolute values may lead to misinterpretation of CBC data. Current Interpretive Data was last revised on 2017. Imm gran pct 0.4 % [facility] Comment: Interpretive Data Percent cell count reference ranges are not reported, since discordance with absolute values may lead to misinterpretation of CBC data. Current Interpretive Data was last revised on 2017. Lymphocyte pct 5.5 % [facility] Comment: Interpretive Data Percent cell count reference ranges are not reported, since discordance with absolute values may lead to misinterpretation of CBC data. Current Interpretive Data was last revised on 2017. Monocyte pct 7.0 % [facility] Comment: Interpretive Data Percent cell count reference ranges are not reported, since discordance with absolute values may lead to misinterpretation of CBC data. Current Interpretive Data was last revised on 2017. Eosinophil pct 0.0 % [facility] Comment: Interpretive Data Percent cell count reference ranges are not reported, since discordance with absolute values may lead to misinterpretation of CBC data. Current Interpretive Data was last revised on 2017. Basophil pct 0.2 % [facility] Comment: Interpretive Data Percent cell count reference ranges are not reported, since discordance with absolute values may lead to misinterpretation of CBC data. Current Interpretive Data was last revised on 2017. Blood 12/17/2024 8:02 AM CDT 12/17/2024 8:10 AM CDT us Lianna Pierson NP LAB BLOOD ORDERABLES Angeles nicole Result [facility] [address] Department [place] [address] * (ABNORMAL) CBC with auto differential (12/17/2024 8:02 AM CDT) WBC 13.21(H) 3.80 - 9.90 K/cumm Hgb 12.6(L) 13.0 - 17.5 g/dL [facility] Hct 39.6 38.9 - 50.3 % [facility] Plt 228 150 - 400 K/cumm [facility] MPV 9.4 9.1 - 12.3 fL [facility] RBC 4.13(L) 4.30 - 5.80 M/cumm [facility] MCV 95.9 81.3 - 96.4 fL [facility] MCH 30.5 27.1 - 33.3 pg [facility] MCHC 31.8(L) 32.3 - 35.7 g/dL [facility] RDW CV 14.6 11.1 - 14.9 % [facility] RDW SD 50.8(H) 35.7 - 48.1 fL [facility] NRBC abs 0.00 0.00 - 0.01 K/cumm [facility] Blood 12/17/2024 8:02 AM CDT 12/17/2024 8:10 AM CDT Lianna Pierson NP LAB BLOOD ORDERABLES Angeles l Result Performing Organization Address City/[facility]/ZIP Co de Phone Number [facility] [address] Department [place] [address] * (ABNORMAL) Basic metabolic panel (12/17/2024 8:02 AM CDT) [facility] Sodium 140 135 - 145 mmol/L Potassium, pl 4.3 3.3 - 4.9 mmol/L [facility] Chloride 101 97 - 110 mmol/L [facility] CO2 27 22 - 32 mmol/L [facility] Anion gap 12 2 - 15 mmol/L [facility] BUN 29(H) 6 - 25 mg/dL [facility] Creatinine 1.57(H) 0.80 - 1.30 mg/dL [facility] Glucose 135 70 - 199 mg/dL [facility] Comment: Interpretive Data Fasting glucose >/= [...] interpretive data was last revised 2022. Calcium 9.1 8.5 - 10.3 mg/dL [facility] Blood 12/17/2024 8:02 AM CDT 12/17/2024 8:09 AM CDT Lianna Pierson NP LAB BLOOD ORDERABLES Angeles l Result [facility] [address] Department [place] [address] * FL Fluoroscopy < 1 Hour (12/16/2024 4:06 PM CDT) N[facility]ative [facility] - 12/16/[facility]24 4:07 PM CDT The images from this study are not interpreted by Radiology. Please refer to the physician's procedure / OR operative note. us Julian Valdez MD IMG FLUOROSCOPY PROCEDURE S Final Result [facility] * LA AN ELECTIVE ENDOTRACHEAL AIRWAY, LA AN PROCEDURE PLACEHOLDER (12/16/2024 12:02 PM CDT) Narrative Freddy La III, CRNA - 12/16/2024 12:02 PM CDT Freddy La III, CRNA 12/16/2024 12:03 PM Airway Patient location: OR Urgency: elective Date/time: 12/16/2024 11:52 AM Indications for airway management: anesthesia Difficult airway: no Staff: Placed by: ANIMAL KILLER: Freddy La III, CRNA Emergent airway documentation: Risks and benefits discussed: yes Consent obtained: yes Consent given by: patient Airway prep: Preoxygenated: yes Patient position: sniffing Mask difficulty assessment: 2 - vent by mask + OA or adjuvant Sedation level during airway: GA Final airway details: Final airway type: endotracheal airway Tube type: ETT ETT size: 8.0 mm Cuffed: yes Technique used for successful ETT placement: video laryngoscopy Devices/Methods used in placement: stylet Insertion site: oral Blade type: Jossy Video blade type: Glidescope and Tidwell Blade size: 4 Cormack-Lehane (video): grade IIa - partial view of glottis Cuff volume: 8 mL Cuff inflated with: air ETT to lips: 22 cm Placement verified by: auscultation and CO2 detection Airway secured with: silk tape Number of attempts: 1 us Nnamdi Keyes MD ANESTHESIA ORDERABLES Edited Result - Final * (ABNORMAL) aPTT (11/30/2024 7:31 AM CDT) aPTT 26(L) 28 - 38 sec Comment: Interpretive Data Heparin therapeutic range: 66.0 - 100.0 seconds. Range based on correlation with therapeutic heparin activity range of 0.3 - 0.7 Units/mL. Current interpretive data was last revised on 2023. Blood 11/30/2024 7:31 AM CDT 11/30/2024 7:55 AM CDT Hermelindo Butler MD LAB BLOOD ORDER ELANA Final Result Performing Organization Address [facility] de Phone Number [facility] [place] [address] * Protime-INR (11/30/2024 7:31 AM CDT) [facility] PT 11.1 9.7 - 13.0 sec INR 1.03 0.90 - 1.20 [facility] Comment: Interpretive data Oral anticoagulant therapeutic ranges: Venous thromboembolism prophylaxis or treatment: 2.0-3.0 CARDIOLOGY Standard range: 2.0-3.0 High-intensity range: 2.5-3.5 Refer to indication-specific guidelines for appropriate target ranges for prosthetic heart valve replacement. Current interpretive data was last revised on 2019. Blood 11/30/2024 7:31 AM CDT 11/30/2024 7:55 AM CDT Hermelindo Butler MD LAB BLOOD ORDER ELANA Final Result Performing Organization Address [facility] de Phone Number [facility] [place] [address] * Immunotyping, serum with interpretation (11/30/2024 7:30 AM CDT) Pathologist [facility] Immunosubtraction Please see comment Comment: NO PARAPROTEIN DETECTED Reviewed and signed by Ivan Sims MD, PhD 12/01/2024 Blood 11/30/2024 7:30 AM CDT 11/30/2024 8:26 AM CDT Hermelindo Butler MD LAB BLOOD ORDER ELANA Final Result Performing Organization Address City/[facility]/ZIP Co de Phone Number [place] Ar[facility] Department [place] [address] * (ABNORMAL) eGFR (11/30/2024 7:30 AM CDT) Pathologist [facility] eGFR 41(L) >=60 mL/min/1. 73 m2 Comment: Interpretive Data [...] interpretive data was last reviewed 2021. Blood 11/30/2024 7:30 AM CDT 11/30/2024 7:35 AM CDT Hermelindo Butler MD LAB BLOOD ORDER ELANA Final Result [facility] Department [place] [address] * Differential, auto (11/30/2024 7:30 AM CDT) Neutrophil abs 5.94 1.50 - 6.50 K/cumm Comment:Testing performed by : [facility], [address] [place] [phone] Lymphocyte abs 0.94 0.80 - 3.30 K/cumm [facility] Comment:Testing performed by : [facility], [address] [place] [phone] Monocyte abs 0.65 0.20 - 0.80 K/cumm [facility] Comment:Testing performed by : [facility], [address] [place], [place] [id number] Eosinophil abs 0.31 0.00 - 0.50 K/cumm [facility] Comment:Testing performed by : [facility], [address] [place] [phone] Basophil abs 0.06 0.00 - 0.10 K/cumm [facility] Comment:Testing performed by : [facility], [address] [place], [place] [id number] Neutrophil pct 75.2 % [facility] Comment: Interpretive Data Percent cell count reference ranges are not reported, since discordance with absolute values may lead to misinterpretation of CBC data. Current Interpretive Data was last revised on 2017. Testing performed by: [facility], [address] [place] [phone] Lymphocyte pct 11.9 % [facility] Comment: Interpretive Data Percent cell count reference ranges are not reported, since discordance with absolute values may lead to misinterpretation of CBC data. Current Interpretive Data was last revised on 2017. Testing performed by: [facility], [address] [place] [phone] Monocyte pct 8.2 % [facility] Comment: Interpretive Data Percent cell count reference ranges are not reported, since discordance with absolute values may lead to misinterpretation of CBC data. Current Interpretive Data was last revised on 2017. Testing performed by: [facility], [address] [place] [phone] Eosinophil pct 4.0 % [facility] Comment: Interpretive Data Percent cell count reference ranges are not reported, since discordance with absolute values may lead to misinterpretation of CBC data. Current Interpretive Data was last revised on 2017. Testing performed by: [facility], [address] [place] [address] Basophil pct 0.8 % [facility] Comment: Interpretive Data Percent cell count reference ranges are not reported, since discordance with absolute values may lead to misinterpretation of CBC data. Current Interpretive Data was last revised on 2017. Testing performed by: [facility], [address] [place] [phone] Blood 11/30/2024 7:30 AM CDT 11/30/2024 7:35 AM CDT Hermelindo Butler MD LAB BLOOD ORDER ELANA Final Result [facility] Department [place] [address] * (ABNORMAL) Immunoglobulin free light chains (11/30/2024 7:30 AM CDT) Gautier/Lambda ratio [facility] See Comment 0.26 - 1.65 Comment: Unable to calculate exact result. Interpretive Data The Binding Site FreeLite assay procedure was used. Results from different manufacturers or methods may not be comparable. Serial testing should be performed using the same methods and instrumentation. Current Interpretive Data was last revised on 2023. Gautier free light chain [facility] <0.06(L) 0.33 - [...] Data was last revised on 2023. Blood 11/30/2024 7:30 AM CDT 11/30/2024 8:26 AM CDT Hermelindo Butler MD LAB BLOOD ORDER ELANA Final Result [place] [facility] Department [place] [address] * (ABNORMAL) CBC with auto differential (11/30/2024 7:30 AM CDT) WBC 7.90 3.80 - 9.90 K/cumm Comment:Testing performed by : [facility], [address] [place] [address] Hgb 12.6(L) 13.0 - 17.5 g/dL [facility] Comment:Testing performed by : [facility], [address] [place] [address] Hct 37.8(L) 38.9 - 50.3 % [facility] Comment:Testing performed by : [facility], [address] [place] [address] Plt 225 150 - 400 K/cumm [facility] Comment:Testing performed by : [facility], [address] [place] [address] MPV 6.9 6.8 - 10.4 fL [facility] Comment:Testing performed by : [facility], [address] [place] [address] RBC 4.16(L) 4.30 - 5.80 M/cumm [facility] Comment:Testing performed by : [facility], [address] [place] [address] MCV 90.8 81.3 - 96.4 fL [facility] Comment:Testing performed by : [facility], [address] [place] [address] MCH 30.3 27.1 - 33.3 pg [facility] Comment:Testing performed by : [facility], [address] [place] [address] [place] [phone] MCHC 33.4 32.3 - 35.7 g/dL [facility] Comment:Testing performed by : [facility], [address] [place], [place] [phone] RDW CV 15.1(H) 11.1 - 14.9 % [facility] Comment:Testing performed by : [facility], [address] [place] [phone] NRBC abs 0.00 0.00 - 0.01 K/cumm [facility] Comment:Testing performed by : [facility], [address] [place] [phone] Blood 11/30/2024 7:30 AM CDT 11/30/2024 7:35 AM CDT Hermelindo Butler MD LAB BLOOD ORDER ELANA Final Result [facility] Department [place] [address] * (ABNORMAL) Protein electrophoresis with reflex, serum with interpretation (11/30/2024 7:30 AM CDT) Protein, sr 6.0(L) 6.2 - 8.2 g/dL Albumin 3.8 3.2 - 5.0 g/dL [facility] Alpha-1 globulin 0.4 0.2 - 0.4 g/dL [facility] Alpha-2 globulin 0.8 0.5 - 1.0 g/dL [facility] Beta-1 globulin 0.4 0.3 - 0.6 g/dL [facility] Beta-2 globulin 0.3 0.2 - 0.6 g/dL [facility] Gamma globulin 0.3(L) 0.5 - 1.7 g/dL [facility] SPEP interp Please see comment [facility] Comment: No apparent monoclonal peak Decreased gamma globulins Electrophoretic pattern appears similar to previous sample 11/03/2024 See immunotyping for further information Reviewed and signed by Ivan Sims MD, PhD 12/01/2024 Blood 11/30/2024 7:30 AM CDT 11/30/2024 8:26 AM CDT Hermelindo Butler MD LAB BLOOD ORDER ELANA Final Result Performing Organization Address [facility] Co de Phone Number [facility] [place] [address] * Magnesium (11/30/2024 7:30 AM CDT) Magnesium 2.1 1.4 - 2.5 mg/dL Blood 11/30/2024 7:30 AM CDT 11/30/2024 7:35 AM CDT Hermelindo Butler MD LAB BLOOD ORDER ELANA Final Result Performing Organization Address [facility] de Phone Number [facility] [place] [address] * Lactate dehydrogenase (LD) (11/30/2024 7:30 AM CDT) Lactate dehydrogenase (LDH) 115 100 - 250 Units/L Blood 11/30/2024 7:30 AM CDT 11/30/2024 7:35 AM CDT Hermelindo Butler MD LAB BLOOD ORDER ELANA Final Result Performing Organization Address City/[facility] de Phone Number [facility] [place] [address] * Gamma GT (11/30/2024 7:30 AM CDT) GGT 32 10 - 50 Units/L Blood 11/30/2024 7:30 AM CDT 11/30/2024 7:35 AM CDT Hermelindo Butler MD LAB BLOOD ORDER ELANA Final Result Performing Organization Address City/[facility] de Phone Number [facility] [place] [address] * (ABNORMAL) IgA (11/30/2024 7:30 AM CDT) Immunoglobulin A <50(L) 70 - 400 mg/dL Blood 11/30/2024 7:30 AM CDT 11/30/2024 7:56 AM CDT Hermelindo Butler MD LAB BLOOD ORDER ELANA Final Result Performing Organization Address [facility] de Phone Number [facility] [place] [address] * (ABNORMAL) IgM (11/30/2024 7:30 AM CDT) Immunoglobulin M <25(L) 40 - 230 mg/dL Blood 11/30/2024 7:30 AM CDT 11/30/2024 7:56 AM CDT Hermelindo Butler MD LAB BLOOD ORDER ELANA Final Result Performing Organization Address [facility] de Phone Number [facility] Department [place] [address] * (ABNORMAL) IgG (11/30/2024 7:30 AM CDT) Immunoglobulin G <300(L) 700 - 1,600 mg/dL Blood 11/30/2024 7:30 AM CDT 11/30/2024 7:56 AM CDT Hermelindo Butler MD LAB BLOOD ORDER ELANA Final Result Performing Organization Address City/[facility]/ZIP Co de Phone Number [facility] Department [place] [address] * (ABNORMAL) Comprehensive metabolic panel (11/30/2024 7:30 AM CDT) Sodium 140 135 - 145 mmol/L Potassium, pl 4.0 3.3 - 4.9 mmol/L [facility] Chloride 103 97 - 110 mmol/L [facility] CO2 27 22 - 32 mmol/L [facility] Anion gap 10 2 - 15 mmol/L [facility] BUN 38(H) 6 - 25 mg/dL [facility] Creatinine 1.76(H) 0.80 - 1.30 mg/dL [facility] Glucose 123 70 - 199 mg/dL [facility] Comment: Interpretive Data Fasting glucose [...] 2022. Calcium 9.4 8.5 - 10.3 mg/dL [facility] Bilirubin, total 0.5 0.1 - 1.2 mg/dL [facility] Protein, pl 6.4(L) 6.5 - 8.5 g/dL [facility] Albumin 4.0 3.5 - 5.0 g/dL [facility] Alk phos 70 40 - 130 Units/L [facility] ALT 13 7 - 55 Units/L [facility] AST 14 10 - 50 Units/L [facility] Blood 11/30/2024 7:30 AM CDT 11/30/2024 7:35 AM CDT us Hermelindo Butler MD LAB BLOOD ORDER ELANA Final Result [facility] Department [place] [address] * (ABNORMAL) eGFR (11/09/2024 7:35 AM CDT) eGFR 40(L) >=60 mL/min/1. 73 [...] interpretive data was last reviewed 2021. Blood 11/09/2024 7:35 AM CDT 11/09/2024 7:46 AM CDT Hermelindo Butler MD LAB BLOOD ORDER ELANA Final Result [facility] Department [place] [address] * (ABNORMAL) Differential, auto (11/09/2024 7:35 AM CDT) Neutrophil abs 6.83(H) 1.50 - 6.50 K/cumm Comment:Testing performed by : [facility], [address] [place] [phone] Lymphocyte abs 0.77(L) 0.80 - 3.30 K/cumm [facility] Comment:Testing performed by : [facility], [address] [place] [address] Monocyte abs 0.62 0.20 - 0.80 K/cumm [facility] Comment:Testing performed by : [facility], [address] [place] [phone] Eosinophil abs 0.34 0.00 - 0.50 K/cumm [facility] Comment:Testing performed by : [facility], [address] [place] [phone] Basophil abs 0.04 0.00 - 0.10 K/cumm [facility] Comment:Testing performed by : [facility], [address] [place] [phone] Neutrophil pct 79.4 % [facility] Comment: Interpretive Data Percent cell count reference ranges are not reported, since discordance with absolute values may lead to misinterpretation of CBC data. Current Interpretive Data was last revised on 2017. Testing performed by: [facility], [address] [place] [phone] Lymphocyte pct 9.0 % [facility] Comment: Interpretive Data Percent cell count reference ranges are not reported, since discordance with absolute values may lead to misinterpretation of CBC data. Current Interpretive Data was last revised on 2017. Testing performed by: [facility], [address] [place] [phone] Monocyte pct 7.2 % [facility] Comment: Interpretive Data Percent cell count reference ranges are not reported, since discordance with absolute values may lead to misinterpretation of CBC data. Current Interpretive Data was last revised on 2017. Testing performed by: [facility], [address] [place] [phone] Eosinophil pct 3.9 % [facility] Comment: Interpretive Data Percent cell count reference ranges are not reported, since discordance with absolute values may lead to misinterpretation of CBC data. Current Interpretive Data was last revised on 2017. Testing performed by: [facility], [address] [place] [phone] Basophil pct 0.5 % [facility] Comment: Interpretive Data Percent cell count reference ranges are not reported, since discordance with absolute values may lead to misinterpretation of CBC data. Current Interpretive Data was last revised on 2017. Testing performed by: [facility], [address] [place] [address] Blood 11/09/2024 7:35 AM CDT 11/09/2024 7:43 AM CDT Hermelindo Butler MD LAB BLOOD ORDER ELANA Final Result [facility] Department [place] [address] * (ABNORMAL) CBC with auto differential (11/09/2024 7:35 AM CDT) WBC 8.60 3.80 - 9.90 K/cumm Comment:Testing performed by : [facility], [address] [place] [address] Hgb 12.5(L) 13.0 - 17.5 g/dL [facility] Comment:Testing performed by : [facility], [address] [place] [address] Hct 37.6(L) 38.9 - 50.3 % [facility] Comment:Testing performed by : [facility], [address] [place] [address] Plt 225 150 - 400 K/cumm [facility] Comment:Testing performed by : [facility], [address] [place] [address] MPV 7.0 6.8 - 10.4 fL [facility] Comment:Testing performed by : [facility], [address] [place] [address] RBC 4.03(L) 4.30 - 5.80 M/cumm [facility] Comment:Testing performed by : [facility], [address] [place] [address] MCV 93.2 81.3 - 96.[address] [facility] Comment:Testing performed by : [facility] [facility], [address] [place], [place] [id number] MCH 31.0 27.1 - 33.[address] [facility] Comment:Testing performed by : [facility], [address] [place] [address] MCHC 33.3 32.3 - 35.7 g/dL [facility] Comment:Testing performed by : [facility], [address] [place], [place] [id number] RDW CV 15.4(H) 11.1 - 14.9 % [facility] Comment:Testing performed by : [facility], [address] [place], [place] [id number] NRBC abs 0.00 0.00 - 0.01 K/cumm [facility] Comment:Testing performed by : [facility], [address] [place], [place] [id number] Blood 11/09/2024 7:35 AM CDT 11/09/2024 7:43 AM CDT Hermelindo Butler MD LAB BLOOD ORDER ELANA Final Result Performing Organization Address City/[facility] Co de Phone Number [facility] Department [place] [address] * aPTT (11/09/2024 7:35 AM CDT) [facility] aPTT 31 28 - 38 sec Comment: Interpretive Data Heparin therapeutic range: 66.0 - 100.0 seconds. Range based on correlation with therapeutic heparin activity range of 0.3 - 0.7 Units/mL. Current interpretive data was last revised on 2023. Blood 11/09/2024 7:35 AM CDT 11/09/2024 8:00 AM CDT Hermelindo Butler MD LAB BLOOD ORDER ELANA Final Result Performing Organization Address City/State/[facility] Co de Phone Number [facility] Department [place] [address] * Protime-INR (11/09/2024 7:35 AM CDT) [facility] PT 11.2 9.7 - 13.0 sec INR 1.04 0.90 - 1.20 [facility] Comment: Interpretive data Oral anticoagulant therapeutic ranges: Venous thromboembolism prophylaxis or treatment: 2.0-3.0 CARDIOLOGY Standard range: 2.0-3.0 High-intensity range: 2.5-3.5 Refer to indication-specific guidelines for appropriate target ranges for prosthetic heart valve replacement. Current interpretive data was last revised on 2019. Blood 11/09/2024 7:35 AM CDT 11/09/2024 8:00 AM CDT Hermelindo Butler MD LAB BLOOD ORDER ELANA Final Result [facility] Department [place] [address] * Magnesium (11/09/2024 7:35 AM CDT) [facility] Magnesium 2.1 1.4 - 2.5 mg/dL Blood 11/09/2024 7:35 AM CDT 11/09/2024 7:46 AM CDT Hermelindo Butler MD LAB BLOOD ORDER ELANA Final Result [facility] [place] [address] * Lactate dehydrogenase (LD) (11/09/2024 7:35 AM CDT) [facility] Lactate dehydrogenase (LDH) 130 100 - 250 Units/L Blood 11/09/2024 7:35 AM CDT 11/09/2024 7:46 AM CDT Hermelindo Butler MD LAB BLOOD ORDER ELANA Final Result Performing Organization Address City/[facility]/ZIP Co de Phone Number [facility] Department [place] [address] * Gamma GT (11/09/2024 7:35 AM CDT) Pathologist [facility] GGT 27 10 - 50 Units/L Blood 11/09/2024 7:35 AM CDT 11/09/2024 7:46 AM CDT Hermelindo Butler MD LAB BLOOD ORDER ELANA Final Result Performing Organization Address [facility] de Phone Number [facility] [place] [address] * (ABNORMAL) Comprehensive metabolic panel (11/09/2024 7:35 AM CDT) [facility] Sodium 141 135 - 145 mmol/L Potassium, pl 4.1 3.3 - 4.9 mmol/L [facility] Chloride 104 97 - 110 mmol/L [facility] CO2 27 22 - 32 mmol/L [facility] Anion gap 10 2 - 15 mmol/L [facility] BUN 31(H) 6 - 25 mg/dL [facility] Creatinine 1.78(H) 0.80 - 1.30 mg/dL [facility] Glucose 113 70 - 199 mg/dL [facility] Comment: Interpretive Data Fasting glucose [...] 2022. Calcium 9.4 8.5 - 10.3 mg/dL [facility] Bilirubin, total 0.5 0.1 - 1.2 mg/dL [facility] Protein, pl 6.3(L) 6.5 - 8.5 g/dL [facility] Albumin 3.9 3.5 - 5.0 g/dL [facility] Alk phos 69 40 - 130 Units/L [facility] ALT 13 7 - 55 Units/L [facility] AST 15 10 - 50 Units/L [facility] Blood 11/09/2024 7:35 AM CDT 11/09/2024 7:46 AM CDT Hermelindo Butler MD LAB BLOOD ORDER ELANA Final Result Performing Organization Address City/[facility] Co de Phone Number [facility] Department [place] [address] * Immunotyping, serum with interpretation (11/02/2024 7:36 AM CDT) Pathologist [facility] Immunosubtraction Please see comment Comment: NO PARAPROTEIN DETECTED Reviewed and signed by Fernando Nunez MD, PhD 11/03/2024 Blood 11/02/2024 7:36 AM CDT 11/02/2024 8:18 AM CDT Hermelindo Butler MD LAB BLOOD ORDER ELANA Final Result Performing Organization Address City/[facility] Co de Phone Number [facility] [place] [address] * (ABNORMAL) eGFR (11/02/2024 7:36 AM CDT) [facility] eGFR 45(L) >=60 mL/min/1. 73 m2 [...] interpretive data was last reviewed 2021. Blood 11/02/2024 7:36 AM CDT 11/02/2024 7:49 AM CDT Hermelindo Butler MD LAB BLOOD ORDER ELANA Final Result [facility] Department [place] [address] * Differential, auto (11/02/2024 7:36 AM CDT) Neutrophil abs 5.00 1.50 - 6.50 K/cumm Comment:Testing performed by : [facility], [address] [place], [place] [id number] Lymphocyte abs 0.90 0.80 - 3.30 K/cumm [facility] Comment:Testing performed by : [facility], [address] [place], [place] [id number] Monocyte abs 0.45 0.20 - 0.80 K/cumm [facility] Comment:Testing performed by : [facility], [address] [place], [place] [id number] Eosinophil abs 0.34 0.00 - 0.50 K/cumm [facility] Comment:Testing performed by : [facility], [address] [place], [place] [id number] Basophil abs 0.02 0.00 - 0.10 K/cumm [facility] Comment:Testing performed by : [facility], [address] [place] [phone] Neutrophil pct 74.5 % [facility] Comment: Interpretive Data Percent cell count reference ranges are not reported, since discordance with absolute values may lead to misinterpretation of CBC data. Current Interpretive Data was last revised on 2017. Testing performed by: [facility], [address] [place] [phone] Lymphocyte pct 13.4 % [facility] Comment: Interpretive Data Percent cell count reference ranges are not reported, since discordance with absolute values may lead to misinterpretation of CBC data. Current Interpretive Data was last revised on 2017. Testing performed by: [facility], [address] [place] [phone] Monocyte pct 6.7 % [facility] Comment: Interpretive Data Percent cell count reference ranges are not reported, since discordance with absolute values may lead to misinterpretation of CBC data. Current Interpretive Data was last revised on 2017. Testing performed by: [facility], [address] [place] [phone] Eosinophil pct 5.1 % [facility] Comment: Interpretive Data Percent cell count reference ranges are not reported, since discordance with absolute values may lead to misinterpretation of CBC data. Current Interpretive Data was last revised on 2017. Testing performed by: [facility], [address] [place] [phone] Basophil pct 0.3 % [facility] Comment: Interpretive Data Percent cell count reference ranges are not reported, since discordance with absolute values may lead to misinterpretation of CBC data. Current Interpretive Data was last revised on 2017. Testing performed by: [facility], [address] [place] [phone] Blood 11/02/2024 7:36 AM CDT 11/02/2024 7:47 AM CDT us Hermelindo Butler MD LAB BLOOD ORDER ELANA Final Result [facility] Department [place] [address] * (ABNORMAL) Immunoglobulin free light chains (11/02/2024 7:36 AM CDT) Pathologist [facility] Gautier/Lambda ratio [facility] See Comment 0.26 - 1.65 Comment: Unable to calculate exact result. Interpretive Data The Binding Site FreeLite assay procedure was used. Results from different manufacturers or methods may not be comparable. Serial testing should be performed using the same methods and instrumentation. Current Interpretive Data was last revised on 2023. Gautier free light chain [facility] <0.06(L) 0.33 - 1.94 mg/dL [facility] Comment: Interpretive Data The Binding Site FreeLite assay procedure was used. Results from different manufacturers or methods may not be comparable. Serial testing should be performed using the same methods and instrumentation. Current Interpretive Data was last revised on 2023. Lambda free light chain [facility] <0.14(L) 0.57 - 2.63 mg/dL [facility] Comment: Interpretive Data The Binding Site FreeLite assay procedure was used. Results from different manufacturers or methods may not be comparable. Serial testing should be performed using the same methods and instrumentation. Current Interpretive Data was last revised on 2023. Blood 11/02/2024 7:36 AM CDT 11/02/2024 8:18 AM CDT Hermelindo Butler MD LAB BLOOD ORDER ELANA Final Result [facility] Department [place] [address] * (ABNORMAL) CBC with auto differential (11/02/2024 7:36 AM CDT) Pathologist [facility] WBC 6.71 3.80 - 9.90 K/cumm Comment:Testing performed by : [facility], [address] [place] [phone] Hgb 12.3(L) 13.0 - 17.5 g/dL [facility] Comment:Testing performed by : [facility], [address] [place], [place] [phone] Hct 37.0(L) 38.9 - 50.3 % [facility] Comment:Testing performed by : [facility], [address] [place], [place] [id number] Plt 170 150 - 400 K/cumm [facility] Comment:Testing performed by : [facility], [address] [place], [place] [phone] MPV 7.4 6.8 - 10.4 fL [facility] Comment:Testing performed by : [facility], [address] [place], [place] [id number] RBC 3.95(L) 4.30 - 5.80 M/cumm [facility] Comment:Testing performed by : [facility], [address] [place], [place] [phone] MCV 93.8 81.3 - 96.4 fL [facility] Comment:Testing performed by : [facility], [address] [place], [place] [id number] MCH 31.2 27.1 - 33.3 pg [facility] Comment:Testing performed by : [facility], [address] [place], [place] [phone] MCHC 33.2 32.3 - 35.7 g/dL [facility] Comment:Testing performed by : [facility], [address] [place], [place] [phone] RDW CV 15.6(H) 11.1 - 14.9 % [facility] Comment:Testing performed by : [facility], [address] [place], [place] [phone] NRBC abs 0.00 0.00 - 0.01 K/cumm [facility] Comment:Testing performed by : [facility], [address] [place], [place] [phone] Blood 11/02/2024 7:36 AM CDT 11/02/2024 7:47 AM CDT Hermelindo Butler MD LAB BLOOD ORDER ELANA Final Result Performing Organization Address [facility] de Phone Number [facility] [place] [address] * aPTT (11/02/2024 7:36 AM CDT) aPTT 31 28 - 38 sec Comment: Interpretive Data Heparin therapeutic range: 66.0 - 100.0 seconds. Range based on correlation with therapeutic heparin activity range of 0.3 - 0.7 Units/mL. Current interpretive data was last revised on 2023. Blood 11/02/2024 7:36 AM CDT 11/02/2024 7:59 AM CDT Hermelindo Butler MD LAB BLOOD ORDER ELANA Final Result Performing Organization Address [facility] de Phone Number [facility] [place] [address] * Protime-INR (11/02/2024 7:36 AM CDT) PT 11.3 9.7 - 13.0 sec INR 1.05 0.90 - 1.20 [facility] Comment: Interpretive data Oral anticoagulant therapeutic ranges: Venous thromboembolism prophylaxis or treatment: 2.0-3.0 CARDIOLOGY Standard range: 2.0-3.0 High-intensity range: 2.5-3.5 Refer to indication-specific guidelines for appropriate target ranges for prosthetic heart valve replacement. Current interpretive data was last revised on 2019. Blood 11/02/2024 7:36 AM CDT 11/02/2024 7:59 AM CDT Hermelindo Butler MD LAB BLOOD ORDER ELANA Final Result Performing Organization Address City/[facility] de Phone Number [facility] [place] [address] * (ABNORMAL) Protein electrophoresis with reflex, serum with interpretation (11/02/2024 7:36 AM CDT) [facility] Protein, sr 6.1(L) 6.2 - 8.2 g/dL Albumin 3.8 3.2 - 5.0 g/dL [facility] Alpha-1 globulin 0.4 0.2 - 0.4 g/dL [facility] Alpha-2 globulin 0.8 0.5 - 1.0 g/dL [facility] Beta-1 globulin 0.4 0.3 - 0.6 g/dL [facility] Beta-2 globulin 0.3 0.2 - 0.6 g/dL [facility] Gamma globulin 0.4(L) 0.5 - 1.7 g/dL [facility] SPEP interp Please see comment [facility] Comment: No apparent monoclonal peak Decreased gamma globulins Electrophoretic pattern appears similar to previous sample 10/20/2024 See immunotyping for further information Reviewed and signed by Fernando Nunez MD, PhD 11/03/2024 Blood 11/02/2024 7:36 AM CDT 11/02/2024 8:18 AM CDT Hermelindo Butler MD LAB BLOOD ORDER ELANA Final Result Performing Organization Address City/[facility]/ZIP Co de Phone Number [facility] Department [place] [address] * Magnesium (11/02/2024 7:36 AM CDT) [facility] Magnesium 2.2 1.4 - 2.5 mg/dL Blood 11/02/2024 7:36 AM CDT 11/02/2024 7:49 AM CDT Hermelindo Butler MD LAB BLOOD ORDER ELANA Final Result [facility] Department [place] [address] * Lactate dehydrogenase (LD) (11/02/2024 7:36 AM CDT) [facility] Lactate dehydrogenase (LDH) 131 100 - 250 Units/L Blood 11/02/2024 7:36 AM CDT 11/02/2024 7:49 AM CDT Hermelindo Butler MD LAB BLOOD ORDER E[place] [address] * Gamma GT (11/02/2024 7:36 AM CDT) [facility] GGT 26 10 - 50 Units/L Blood 11/02/2024 7:36 AM CDT 11/02/2024 7:49 AM CDT Hermelindo Butler MD LAB BLOOD ORDER ELANA Final Result Performing Organization Address City/[facility] Co de Phone Number [facility] Department [place] [address] * (ABNORMAL) IgA (11/02/2024 7:36 AM CDT) [facility] Immunoglobulin A <50(L) 70 - 400 mg/dL Blood 11/02/2024 7:36 AM CDT 11/02/2024 8:32 AM CDT Hermelindo Butler MD LAB BLOOD ORDER ELANA Final Result Performing Organization Address City/[facility] Co de Phone Number [facility] [place] [address] * (ABNORMAL) IgM (11/02/2024 7:36 AM CDT) [facility] Immunoglobulin M <25(L) 40 - 230 mg/dL Blood 11/02/2024 7:36 AM CDT 11/02/2024 8:32 AM CDT Hermelindo Butler MD LAB BLOOD ORDER ELANA Final Result Performing Organization Address City/[facility] Co de Phone Number [facility] Department [place] [address] * (ABNORMAL) IgG (11/02/2024 7:36 AM CDT) Pathologist [facility] Immunoglobulin G 443(L) 700 - 1,600 mg/dL Blood 11/02/2024 7:36 AM CDT 11/02/2024 8:32 AM CDT Hermelindo Butler MD LAB BLOOD ORDER ELANA Final Result Performing Organization Address [facility] de Phone Number [facility] Department [place] [address] * (ABNORMAL) Comprehensive metabolic panel (11/02/2024 7:36 AM CDT) [facility] Sodium 141 135 - 145 mmol/L Potassium, pl 4.0 3.3 - 4.9 mmol/L [facility] Chloride 105 97 - 110 mmol/L [facility] CO2 27 22 - 32 mmol/L [facility] Anion gap 9 2 - 15 mmol/L [facility] BUN 30(H) 6 - 25 mg/dL [facility] Creatinine 1.61(H) 0.80 - 1.30 mg/dL [facility] Glucose 108 70 - 199 mg/dL [facility] Comment: Interpretive Data Fasting glucose [...] interpretive data was last revised 2022. Calcium 9.1 8.5 - 10.3 mg/dL [facility] Bilirubin, total 0.5 0.1 - 1.2 mg/dL [facility] Protein, pl 6.4(L) 6.5 - 8.5 g/dL [facility] Albumin 4.0 3.5 - 5.0 g/dL [facility] Alk phos 70 40 - 130 Units/L [facility] ALT 13 7 - 55 Units/L [facility] AST 16 10 - 50 Units/L [facility] Blood 11/02/2024 7:36 AM CDT 11/02/2024 7:49 AM CDT Hermelindo Butler MD LAB BLOOD ORDER ELANA Final Result [facility] Department [place] [address] * (ABNORMAL) PSA diagnostic (08/06/2024 7:43 AM BODY WORK AUTO TRIMMER) PSA-Total 6.28(H) <=6.20 ng/mL Comment: Interpretive Data [...] last revised 21. Blood 08/06/2024 7:43 AM BODY WORK AUTO TRIMMER 08/06/2024 7:52 AM BODY WORK AUTO TRIMMER Hermelindo Butler MD LAB BLOOD ORDER ELANA Final Result [facility] Manoj [facility] Department [place] [address] * Hepatitis C antibody (10/16/2021 9:50 AM CDT) Hep C Ab Nonreactive Nonreactive [facility] Comment:Antibodies to HCV no t detected. Does NOT exclude the possibility of recent exposure to HCV. Blood 10/16/2021 9:50 AM CDT 10/16/2021 11:22 AM CDT Hermelindo dupree MD LAB MICROBIOLOGY - GENERAL ORDERABLES Edited Result - Final Performing Organization Address [facility] Co de Phone Number [facility] Manoj [facility] Department [place] [address] from Last 3 Months or Most Recently Relevant to Health Maintenance Insurance MEDICARE AET[employer] SENIOR SUPPLEMENT MEDICARE AET SENIOR SUPPLEMENT MEDICARE AETNA SENIOR SUPPLEMENT Advance Directives For more information, please contact: [phone] Documents on File Type Date Recorded Patient Grinding Machine Operator Expl anation ADVANCE DIRECTIVE 11/29/2017 11:05 AM FOX R OF ROBOTYPE OPERATOR ADVANCE DIRECTIVE 11/12/2017 3:59 PM POWER OF ROBOTYPE OPERATOR * LIMITED - No CPR (Latest Code Status on File) Date Activated Date Inactivated Comments 12/22/2024 12:45 PM 12/24/2024 10:58 PM Question Answer Comments Provide aggressive medical m anagement before a full cardiopulmonary arrest occurs. Use antibiotics, IV Fluids, and medical treatment unless specifically selected below: No intubationNo cardioversion Discussed with the following attending physician: ada stuart * Full Code Date Activated Date Inactivated Comments 12/21/2024 6:45 PM 12/21/2024 6:48 PM * Full Code Date Activated Date Inactivated Comments 12/16/2024 5:16 PM 12/17/2024 6:57 PM * Full Code Date Activated Date Inactivated Comments 09/11/2024 1:51 AM 09/15/2024 9:22 PM * Full Code Date Activated Date Inactivated Comments 08/23/2024 11:41 PM 08/26/2024 9:04 PM Care Teams Production Team Member Relationship Specialty Start Date End Date Jatin Gamble MD [address] [place] [address] PCP - General 10/07/16 Hermelindo Butler MD [address] [place] [address] Medical Oncologist/Hematologi Medical Oncology 12/02/17 Roberto Rojo MD [address] [place] [address] Medical Oncologist[facility] H[facility] and Oncology 12/02/17 Jatin Gamble MD [address] [place] [address] Referring Physician Internal Medicine 12/02/17 Francoise Fagan NP [address] [place] [address] Nurse Practitioner Medical Oncology 08/03/20 Erlin Servin MD [address] [place] [address] Consulting Physician Otolaryngology 10/04/22 [place] [address] [place] [address] Consulting Physician Urology 05/28/23 Salvador Norris MD [id number] [place] [address] Consulting Physician Infectious Diseases 09/15/24 Miscellaneous, Not In File 09/15/24
--- OUTSIDE RECORDS SUMMARY | 2025-01-27 07:54 | XMS_ITS | Clinical Summary ---
Author Organization [facility] Address [address] [place] [address] Care Team Providers Care Ropewalk Rope Maker Name Role Phone Unavailable Primary Care Provider [...]
--- OUTSIDE RECORDS SUMMARY | 2025-01-27 07:55 | XMS_ITS | Encounter Summary ---
Author Organization [facility] Healthcare Address [address] [place] [address] Care Team Providers Care Shellfish Dredge Operator Name Role Phone Jatin Gamble MD Primary Care Provider Hermelindo Butler MD Unavailable Roberto Rojo MD Unavailable [phone] Jatin Gamble MD Unavailable [phone] Garry Dukes MD Unavailable [phone] Francoise Fagan NP Unavailable [phone] Erlin Servin MD Unavailable Julian Valdez MD Unavailable Salvador Norris MD Unavailable Miscellaneous, Not In File Unavailable Unava ilable Encounter Details Date Type Department Care Team (Late st Contact Info) Description 04/29/2022 Community Orders [facility] EpicCare Link Jatin Gamble MD [address] [place] [address] Elevated prostate specific antigen (PSA) (Primary Dx) Social History Tobacco Use Types Packs/Day Years Used Date Smoking Tobacco: Never Smokeless Tobacco: Never Alcohol Use Standard Drinks/Week Comments No 0 (1 standard drink = 0.6 oz pur e alcohol) Sex and Gender Information Value Date Recorded Sex Assigned at Not on file 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 Gender Identity Not on file Sexual Orientation [...] documented as of this encounter Care Teams Shellfish Dredge Operator Relationship Specialty Start Date End Date Jatin Gamble MD [address] [place] [address] PCP - General 10/07/16 Hermelindo Butler MD [address] [place] [address] [facility] 12/02/17 Roberto Rojo MD [address] [place] [id number] [facility] 12/02/17 Jatin Gamble MD [address] [place] [address] Referring Physician Internal Medicine 12/02/17 Garry Dukes MD [address] [place], [place] [id number] Referring Physician Urology 12/02/17 05/27/23 Francoise Fagan NP [address] [place], [place] [id number] Nurse Practitioner Medical Oncology 08/03/20 Erlin Servin MD [address] [place] [address] Consulting Physician Otolaryngology 10/04/22 [place] [address] [place] [address] Consulting Physician Urology 05/28/23 Salvador Norris MD [address] [place] [address] Consulting Physician Infectious Diseases 09/15/24 Miscellaneous, Not In File 09/15/24 documented as of this encounter
[2025-01-27 08:53] LABS: Alanine Aminotransferase 18 U/L (6-50); Albumin Level 4.0 g/dL (3.5-5.1); Alkaline Phosphatase 57 U/L (38-126); Anion Gap 8 mmol/L (4-12); Aspartate Amino Transferase 23 U/L (17-59); Bilirubin,Total 0.7 mg/dL (0.2-1.3); Blood Urea Nitrogen 48 mg/dL (9-20); Calcium 9.5 mg/dL (8.4-10.2); Carbon Dioxide 24 mmol/L (22-30); Chloride 108 mmol/L (98-107); Estimated Glomerular Filt Rate 30; Glucose 118 mg/dL (65-110); Osmolality Calculated 303 mOsm/kg (285-295); Potassium 4.5 mmol/L (3.4-5.0); Sodium 140 mmol/L (137-145); Total Protein 6.0 g/dL (6.3-8.2)
== END 2025-01-27 07:41 | disposition home or self-care (01) ==
PROVIDERS: PCP Internal Medicine; Visit Provider Urology
DX: R35.1 Nocturia (principal); C90.00 Multiple myeloma not having achieved remission
CPT/HCPCS: 36415; 80053; 87086

== ENCOUNTER 2025-04-07 09:20 | Outpatient (CLI) | payer MEDICARE, SELFPAY ==
--- OUTSIDE RECORDS SUMMARY | 2021-08-03 09:00 | XMS_ITS | Continuity of Care Document ---
Author Organization [employer] [facility] Address [address] [facility] [address] [place] [address] Phone Care Team Providers Care Medical Delivery Driver Name Role Phone Cesar Vora MD, FACS Unavailable Unavailab le Allergies, Adverse Reactions, Alerts Substance Reaction Status Criticality No Known Allergies Active No Inform ation Medications Medication Instructions Dosage Effective Dates (start - stop) Status Comments dexamethasone sodium phosphate (PF) 10 mg/mL injection syringe inject (10MG) by intravenous route x 1 dose, followed by 4 mg by intramuscular route every 6 hours untilsymptoms subside 10 MG - Active Darzalex Faspro 1,800 mg-30,000 unit/15 mL subcutaneous solution inject 15 milliliter by subcutaneous route every 4 weeks over approximately in the abdomen 15.00 milliliter - Active Pain Relief (with salicylamide) 162 mg-110 mg-152 mg-32.4 mg tablet take 1 tablet by oral route every 4 hours as needed - Active Pomalyst 1 mg capsule take 5 capsule by oral route every day on days 1 through 21 of a 28 day treatment cycle 5 MG - Active acyclovir 400 mg tablet take 2 tablet by oral route every 4 hours for 10 days while awake 800 MG - Active Bystolic 5 mg tablet take 1 tablet by oral route every day 5 MG - Active potassium chloride ER 10 mEq capsule,extended release take 2 capsule by oral route every day with food 20 MEQ - Active famotidine 20 mg tablet take 1 tablet by oral route 2 times every day 20 MG - Active [place] 5 mg-325 mg tablet take 1 tablet by oral route every 6 hours as needed for pain - Active B-100 Complex ER 100 mg tablet,extended release - Active losartan 50 mg-hydrochlorothia zide 12.5 mg tablet take 1 tablet by oral route every day 1.00 tablet - Active diltiazem ER 120 mg capsule,extended [...] Copied on Encounter Office/outpa tient Visit, [facility], [address], [place], [place], [address], [place] tel:[phone] SEC [place] Eyelid infections (chief complaint) Episcleritis of left eyeOther vitreous opacities, bilateralOth er visual disturbances 2 [place] Cesar. [address] [address] [employer] [facility], [address], [place], [place], [address], [place]. tel:[phone] Specialist: Hermelindo Lopez MD, [address] [facility] [address], [place], [address]. tel:[phone] Provider: Vicky Ray OD, [address] [facility], [place], [address]. tel:[phone] [facility], [address], [place], [place], [address], [place] tel:[phone] SEC [place] Professional yag pc OS evaluation (chief complaint) Bilateral artificial lens implantOther secondary cataract, left eyeCyst of right eyelidPVD (posterior vitreous detachment), left eyeBilateral ocular hypertension Oct-1 8 Jose R Franco. [address] [facility], [address], [place], [place], [address], [place]. tel:[phone] Referring Provider: Michele Orellana OD A, [address] [place] [address] Eye [facility], [place], [address]. tel:[phone] [facility] Center[facility] Center[facility], [address] [place], [place] [address], [place], [place], [address], [place] tel:[phone] SEC Steven Sifuentes Yag PC Eval (chief complaint) No Information 7 Vielka Cesar. [address] [place], [place] [address], [address], [place], [place], [address], [place]. tel:[phone] Referring Provider: Michele Orellana OD A, [address] [place] [address], [place], [address]. tel:[phone] [employer] [facility] Indiana[facility], [address] [employer], [place], [place], [address], [place] tel:[phone] SEC Steven Petrona Coybienvenidorosalio No Information 7 Vielka Cesar. [facility] [employer], [address], [place], [place], [address], [place]. tel:[phone] [employer] [facility], [facility] [employer] [address], [place], [place], [address], [place] tel:[phone] [facility] No Information 5 [place] Cesar. [facility] [employer], [address], [place], [place], [address], [place]. tel:[phone] Referring Provider: Michele Orellana OD A, [address] [place] [address], [place], [address]. tel:[phone] [employer] [facility] Indiana[facility], [address] [place] [address] [address], [place], [place], [address], [place] tel:[phone] SEC Steven N Bear No Information 5 Vielka Guerrero. [address] [address] [employer] [employer] [facility], [address], [place], [place], [address], [place]. tel:[phone] Referring Provider: Michele Acevedo, [address] [facility] Eye [facility], [place], [address]. tel:[phone] [facility], [address] [place] [address] [address], [place], [place], [address], [place] tel:[phone] [facility] No Information 5 Vielka Guerrero. [facility] [address] [employer] [facility], [address], [place], [place], [address], [place]. tel:[phone] Referring Provider: Michele Acevedo, [address] [facility], [place], [address]. tel:[phone] [facility], [address] [place] [address] [address], [place], [place], [address], [place] tel:[phone] SEC Steven N Bear Cataract Evaluation (chief complaint) No Information 5 Vielka Guerrero. [address] [place] [address] [employer] [facility], [address], [place], [place], [address], [place]. tel:[phone] Referring Provider: Michele Acevedo, [address] [place], [address]. tel:[phone] Family History Family Member Type Diagnosis Age At Onset Mother Problem (finding) diabetes melli tus in first degree relative Mother Problem (finding) glaucoma Payers Payer name Insurance type Covered libertarian ID Authoriza tion(s) [place] [id number] Aetna Mdcr Supp CI [id number] Social History Type Description Quantity Date Captured [...]
--- OUTSIDE RECORDS SUMMARY | 2025-04-07 10:01 | XMS_ITS | Encounter Summary ---
Author Organization [facility] Healthcare Address [address] [place] [address] Care Team Providers Care Spool Sorter Name Role Phone Jatin Gamble MD Primary Care Provider [phone] Hermelindo Butler MD Unavailable Roberto Rojo MD Unavailable [phone] Jatin Gamble MD Unavailable [phone] Garry Dukes MD Unavailable [phone] Francoise Fagan NP Unavailable [phone] Erlin Servin MD Unavailable [phone] Julian Valdez MD Unavailable [phone] Salvador Norris MD Unavailable Miscellaneous, Not In File Unavailable Unava ilable Encounter Details Date Type Department Care Team (Late st Contact Info) Description 11/22/2021 Documentation [facility] Case Management [address] [place] [address] Forrest Epstein RN Social History Tobacco Use Types Packs/Day Years Used Date Smoking Tobacco: Never Smokeless Tobacco: Never Alcohol Use Standard Drinks/Week Comments No 0 (1 standard drink = 0.6 oz pur e alcohol) Sex and Gender Information Value Date Recorded Sex Assigned at Not on file Legal Sex 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 MD DO [facility] Gender Identity Not on file Sexual Orientation [...] documented as of this encounter Care Teams Spool Sorter Relationship Specialty Start Date End Date Jatin Gamble MD [address] [place] [address] PCP - General 10/07/16 Hermelindo Butler MD [address] [place] [id number] [facility] 12/02/17 Roberto Rojo MD [address] [place] [address] [facility]cology 12/02/17 Jatin Gamble MD [address] [place] [address] Referring Physician Internal Medicine 12/02/17 Garry Dukes MD [address] [place] [address] Referring Physician Urology 12/02/17 05/27/23 Francoise Fagan NP [address] [place] [address] Nurse Practitioner Medical Oncology 08/03/20 Erlin Servin MD [address] [place] [address] Consulting Physician Otolaryngology 10/04/22 [place] [address] [place] [address] Consulting Physician Urology 05/28/23 Salvador Norris MD [id number] [place] [address] Consulting Physician Infectious Diseases 09/15/24 Miscellaneous, Not In File 09/15/24 documented as of this encounter
--- OUTSIDE RECORDS SUMMARY | 2025-04-07 10:01 | XMS_ITS | Encounter Summary ---
Author Organization [facility] Address [address] [place] [address] Phone Care Team Providers Care Home Care Scheduler Name Role Phone Jatin Gamble MD Primary Care Provider Hermelindo Butler MD Unavailable Roberto Rojo MD Unavailable Jatin Gamble MD Unavailable Garry Dukes MD Unavailable [phone] Francoise Fagan NP Unavailable [phone] Erlin Servin MD Unavailable Julian Valdez MD Unavailable [phone] Salvador Norris MD Unavailable Miscellaneous, Not In File Unavailable Unava ilable Encounter Details Date Type Department Care Team (Latest Contact Info) Description 10/16/2017 Orders Only [facility] CONVERSION Scanning, Provider Social History Tobacco Use Types Packs/Day Years Used Date Smoking Tobacco: Never Assessed Sex and Gender Information Value Date Recorded Sex Assigned at Not on file 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 Gender Identity Not on file Sexual Orientation [...] documented as of this encounter Care Teams Home Care Scheduler Relationship Specialty Start Date End Date Jatin Gamble MD [address] [place] [address] PCP - General 10/07/16 Hermelindo Butler MD [address] [place] [address] [facility] 12/02/17 Roberto Rojo MD [facility] [address] [place] [address] [facility] 12/02/17 Jatin Gamble MD [address] [place] [address] Referring Physician Internal Medicine 12/02/17 Garry Dukes MD [address] [place] [address] Referring Physician Urology 12/02/17 05/27/23 Francoise Fagan NP [address] [place] [address] Nurse Practitioner Medical Oncology 08/03/20 Erlin Servin MD [address] [place] [address] Consulting Physician Otolaryngology 10/04/22 [place] [address] [place] [address] Consulting Physician Urology 05/28/23 Salvador Norris MD [address] [place] [address] Consulting Physician Infectious Diseases 09/15/24 Miscellaneous, Not In File 09/15/24 documented as of this encounter
--- OUTSIDE RECORDS SUMMARY | 2025-04-07 10:01 | XMS_ITS | Clinical Summary ---
Author Organization [facility] Address [address] [place] [address] Care Team Providers Care Transmission Mechanic Name Role Phone Jatin Gamble MD Primary Care Provider [phone] Hermelindo Butler MD Unavailable Roberto Rojo MD Unavailable Jatin Gamble MD Unavailable [phone] Francoise Fagan NP Unavailable [phone] Erlin Servin MD Unavailable [phone] Julian Valdez MD Unavailable Salvador Norris MD Unavailable Miscellaneous, Not In File Unavailable Unava ilable Allergies Active Allergy Reactions Criticality Noted Date Comments Immune Globulin(Hum),Capr( Igg) Hives,Flushing (skin) Medium 01/03/2023 See significant event note 01/03/23 Hives developed during IVIG infusion on 10/19/24 Medications potassium chloride ER (KLOR-CON) 10 mEq CR tabletIndicatio ns:hypokalemia prevention Take 1 tablet/capsule (10 mEq total) by mouth every morning Takes with food 4 Active TRIAMTERENE-HYD ROCHLOROTHIAZID [...] 1 tablet (50 mg total) by mouth every morning 2 [...] daily alternating with 1/2 tablet daily Active Active Problems Patient Care Coordination No te Formatting of this note is d ifferent from the original. BMT Inpatient Care Coordination Overview Diagnosis [place] Floor [address] Treatment Plan Clinical Trial [id number] Ramesh Reason for Admission JOHN Transplant/IEC Planning [...] Medical Assistants Post-Discharge Follow-Up Living Situation/Distance from [place], [place] (45 min) Caregiver Self, Lab/Transfusion Frequency Phone: Fax: Venous Access & Care implanted vascular device Local Oncologist Contact Phone: Fax: Post-Discharge Office Visit (H30) [facility] 08/31 Miscellaneous Notes: Problem Noted Date Diagnosed Date Benign prostatic hyperplasia (BPH) with straining on urination 03/22/2025 Bacterial UTI 12/21/2024 Altered mental status 12/21/2024 [...] is a risk of orbital injury and PRODUCT INFO SPECIALIST injury which could result in blindness [...] this. Assessment & Plan (07/09/2022 7:42 PM SIMONIZER): I talked with him quite a bit [...] weeks. Assessment & Plan (05/26/2022 4:16 PM SIMONIZER): He does have pretty significant sinusitis and [...] day. Assessment & Plan (05/26/2022 4:17 PM SIMONIZER): It is very possible that his cough could be due to sinusitis also. Hopefully that will continue to improve as we treat. He understands. Immunocompromised 11/13/2021 Multiple myeloma not having achieved remission 0 10/28/2021 Cancer Staging:Clinical stage from 10/16/2021:RISS Stage II(Aytl-2-mrwauxnohdzsh (mg/L): 3.7, Albumin (g/dL): 4.2, ISS: Stage [...] and Dexamethasone in June 2021 Clinical trial [id number] initiated on 10/29/21; C46D1 08/03/24. BMT following [...] he got a TTE on 10/19 at [place] however unclear why not currently in the system - May need to repeat TTE prior to treatment if results unavailable - Continue OI ppx with acyclovir 400mg BID - Begin trial [id number], a Bispecific Antibody Targeting BCMA treatment - [...] he got a TTE on 10/19 at [place] however unclear why not currently in the system - May need to repeat TTE prior to treatment if results unavailable - Continue OI ppx with acyclovir 400mg BID - Begin trial [id number], a Bispecific Antibody Targeting BCMA treatment - [...] BID Assessment & Plan (05/31/2021 10:51 AM SIMONIZER): Continue home pepcid, asx Renal mass 05/30/2021 Assessment & Plan (05/31/2021 10:51 AM SIMONIZER): Admitted for observation after L renal mass [...] 07/17/2023 Assessment & Plan (05/31/2021 10:52 AM SIMONIZER): Follows with oncology on daratumumab monotherapy -counts [...] blood in urine Follow up pathology from mqshuzuqs-yhn-enervbxx high-grade papillary urothelial carcinoma (grade 2) --follow [...] blood in urine Follow up pathology from qgoplmapu-ejy-jxruqthq high-grade papillary urothelial carcinoma (grade 2) --follow [...] supplementation Assessment & Plan (05/31/2021 10:51 AM SIMONIZER): Stable on home losartan, nebivolol, triamterene-HCTZ Secondary [...] Encounters Date Type Department Care Team Description 03/22/2025 1:08 PM CDT Anesthesia Event [facility] Operating Room [address] [place] [phone] Bharat Parkinson MD Strand, Amanda Mcgee MD 03/22/2025 1:00 PM CDT - 03/22/2025 2:30 PM CDT Surgery [facility] Operating Room [address] [place] [phone] Julian Valdez MD Transurethral Resection of Prostate 03/22/2025 10:49 AM CDT - 03/24/2025 5:53 PM CDT Hospital Encounter [address] [phone] Julian Valdez MD Enlarged prostate with urinary obstruction Discharge Disposition: Discharge to home or self care 03/07/2025 10:15 AM CDT Pre-Admission Testing [facility] Pre Anesthesia Testing [address] [place] [phone] 01/27/2025 Orders Only [facility] Scanning, Provider 01/24/2025 Orders Only [facility] [address] [place] [phone] Fadumo Tobar RN Multiple myeloma, remission status unspecified (HCC) (Primary Dx) 01/18/2025 9:00 AM CDT Infusion [facility] In[facility] [address] [place] [phone] Hypogammaglobulinemia (Primary Dx); Multiple myeloma, remission status unspecified (HCC); Multiple myeloma not having achieved remission (HCC) 01/18/2025 8:00 AM CDT Office Visit [facility] [address] [place] [phone] Francoise Fagan NP Multiple myeloma, remission status unspecified (HCC) (Primary Dx) 01/18/2025 7:00 AM CDT Lab [facility] - Lab Collection [address] [place] [address] Multiple myeloma, remission status unspecified (HCC) 01/12/2025 Telephone [facility] [address] [place] [phone] Kassandra Martino RN 01/12/2025 Orders Only [facility] [address] [place] [phone] Hermelindo Steward MD Multiple myeloma, remission status unspecified (HCC) (Primary Dx) 01/07/2025 Orders Only [facility] [address] [place] [phone] Hermelindo Steward MD Multiple myeloma, remission status unspecified (HCC) (Primary Dx) from Last 3 Months Immunizations Immunization Administration [...] chemotherapy has chemo every 21 days at [facility] tx 09/24/22 Cough patient states [...] Not Answered Alcohol Use Standard Drinks/Week Comments Never 0 (1 standard drink = 0.6 oz pur e alcohol) Social Connection and Isolation Panel Answer Date Recorded In a typical week, how many times do you talk on the phone with family, friends, or neighbors? More than three times a week 12/22/2024 How often do you get togethe r with friends or relatives? More than three times a week 12/22/2024 How often do you attend chur ch or protestant services? More than 4 times per year 12/22/2024 Do you belong to any clubs o r organizations such as yazidi groups, unions, fraternal or athletic groups, or school groups? Yes 12/22/2024 How often do you attend meet ings of the clubs or organizations you belong to? More than 4 times per year 12/22/2024 Are you , , di vorced, , never , or living with a partner? 12/22/2024 Overall Financial Resource Strain (CARDIA) Answe r Date Recorded How hard is it for you to pa y for the very basics like food, housing, medical care, and heating? Not hard at all 12/22/2024 PRAPARE - Transportation Answer Date Re [...] any time in the past 12 m [facility], were you homeless or living in a senior care (including now)? No 12/22/2024 Social Connection and Isolation Panel Answer Date Recorded In a typical week, how many times do you talk on the phone with family, friends, or neighbors? More than three times a week 03/24/2025 How often do you get togethe r with friends or relatives? More than three times a week 03/24/2025 How often do you attend chur ch or protestant services? More than 4 times per year 03/24/2025 Do you belong to any clubs o r organizations such as yazidi groups, unions, fraternal or athletic groups, or school groups? Yes 03/24/2025 How often do you attend meet ings of the clubs or organizations you belong to? More than 4 times per year 03/24/2025 Are you , , di vorced, , never , or living with a partner? 03/24/2025 AUDIT-C Answer Date Recorded Q1: How often do you have a drink containing alcohol? Never 03/07/2025 Q2: How many drinks containi ng alcohol do you have on a typical day when you are drinking? Patient does not drink Q3: How often do you have si x or more drinks on one occasion? Never 03/07/2025 Overall Financial Resource Strain (CARDIA) Answe r Date Recorded How hard is it for you to pa y for the very basics like food, housing, medical care, and heating? Not very hard 03/24/2025 Hunger Vital Sign Answer Date Recorded Within the past 12 months, y ou worried that your food would run out before you got the money to buy more. Never true 03/24/20 25 Within the past 12 months, t he food you bought just didn't last and you didn't have money to get more. Never true 03/24/2025 PRAPARE - Transportation Answer Date Re corded In the past 12 months, has l ack of transportation kept you from medical appointments or from getting medications? No 03/09 In the past 12 months, has l ack of transportation kept you from meetings, work, or from getting things needed for daily living? No 03/24/2025 Housing Stability Vital Sign Answer Patricio e Recorded In the last 12 months, was t here a time when you were not able to pay the mortgage or rent on time? No 03/24/2025 In the past 12 months, how m any times have you moved where you were living? 0 03/24/2025 At any time in the past 12 m [facility], were you homeless or living in a senior care (including now)? No 03/24/2025 [facility] Utilities Answer Date Recorded In the past 12 months has th e electric, gas, oil, or water company threatened to shut off services in your home? No 03/24/2025 Personal Safety Answer Date Recorded Have you ever been in or are you currently in a harmful physical or emotional relationship or is someone making you feel afraid or unsafe? Denies 03/22/2025 Sex and Gender Information Value Date Recorded Sex Assigned at Not on file Legal Sex 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 SIMONIZER Gender Identity Not on file Sexual Orientation Not on file Obstetrics History Last Filed Vital Signs Vital Sign Reading Time Taken Comments Blood Pressure 136/73 03/24/2025 11:31 AM CDT Pulse 89 03/24/2025 11:31 AM CDT Temperature 37.2 C (99 F) 03/24/2025 11:31 AM CDT Respiratory Rate 16 03/24/2025 11:3 1 AM CDT Oxygen Saturation 98% 03/24/2025 11: 31 AM CDT Inhaled Oxygen Concentration - - Weight 125.2 kg (276 lb 0.3 oz) 025 11:37 AM CDT Height 172.7 cm (5' 8) 03/22/2025 11:3 7 AM CDT Body Mass Index 41.97 03/22/2025 11:37 AM CDT Plan of Treatment Health Maintenance Due Date Last Done Comments Colon Cancer Screening-Colonoscopy 1950 Depression Screening 1950 Hepatitis B Screening 1970 Well Visit 65+ 2017 Covid-19 Vaccine (4 - 2024-2 6 season) 2025 06/13/2021, 07/05/2020, 06/07/2020 Influenza Vaccine (#1) 2025 , 03/08/2023, 03/08/2023, Additional history exists Fall Risk Assessment 03/24/2026 03/24/2025 DTaP/Tdap/Td Vaccine (3 - Td or Tdap) 06/21/2033 06/21/2023, 12/09/2011 Zoster Vaccine Completed 08/15/2018, 05/10, 02/28/2018 Pneumococcal vaccine 65+ Completed 04/15/2021, 01/2015 Hepatitis C Screening Completed 10/16/2021 Prostate Cancer Screening-PSA Discontinued , 09/23/2023, 09/02/2023, Additional history exists Medical Devices Implanted Type Area Outside Laborer Device Identifier Shelf Expiration Date Model / Serial / Lot Port Other - see comments Right: Chest Wall Description:Upon arrival to , not accessed [facility] Stent Ureteral Set Double Pigtail Tapered Tip Contour [id number] Hydroplus Coated [id number] - [id number] Implanted:Qty: 1 on 03/22/2025 by Julian Valdez MD at [facility] Left: Ureter [employer] 11/18/2027 [id number] / / [id number] Explanted Type Area Outside Laborer Device Identifier Shelf Expiration Date Model / Serial / Lot [employer] Stent Ureteral Set Double Pigtail Tapered Tip Contour [id number] Hydroplus Coated [id number] - [id number] Implanted:Qty: 1 on 12/16/2024 by Julian Valdez MD at [facility] Explanted:Qty: 1 on 03/22/2025 by Julian Valdez MD at [facility] Left: Ureter [employer] 04/21/2027 [id number] / / [id number] Procedures Procedure Name Priority Date/Time Associated Diagnosis Comments EGFR Routine 03/24/2025 4:22 AM CDT BASIC METABOLIC PANEL Routine 03/24/2025 4:22 AM CDT CBC WITHOUT DIFFERENTIAL Routine 03/24/2025 4:22 AM CDT US KIDNEY COMPLETE IP Routine 03/23/2025 4: 21 PM CDT EGFR Routine 03/23/2025 10:32 AM CDT HEMOGLOBIN AND HEMATOCRIT Routine 03/23/2025 10:32 AM CDT BASIC METABOLIC PANEL Routine 03/23/2025 10:32 AM CDT SURGICAL PATHOLOGY Routine 03/22/2025 3: 12 PM CDT Enlarged prostate with urinary obstruction FL FLUOROSCOPY < 1 HOUR IP Routine 03/22/2025 1:53 PM CDT KS AN PROCEDURE PLACEHOLDER Routine 03/22/2025 1:45 PM CDT KS AN ELECTIVE ENDOTRACHEAL AIRWAY Routine 03/22/2025 1:45 PM CDT EXCHANGE STENT - URETERAL 03/22/2025 1:13 PM CDT Enlarged prostate with urinary obstruction CYSTOSCOPY/TRANSURETHR AL RESECTION OF PROSTATE 03/22/2025 1:13 PM CDT Enlarged prostate with urinary obstruction SCAN - LABS 01/27/2025 EGFR Routine 01/18/2025 7:34 AM CDT Multiple [...] CDT Multiple myeloma, remission status unspecified (HCC) PSA DIAGNOSTIC Routine 08/06/2024 7:43 AM SIMONIZER Multiple myeloma, remission status unspecified (HCC) HEPATITIS C ANTIBODY STAT 10/16/2021 9:50 AM CDT Multiple myeloma in relapse (HCC) from Last 3 Months or Most Recently Relevant to Health Maintenance Results * (ABNORMAL) eGFR (03/24/2025 4:22 AM CDT) eGFR 22(L) >=60 mL/min/1. 73 m2 Comment: Interpretive Data [...] interpretive data was last reviewed 2021. Blood 03/24/2025 4:22 AM CDT 03/24/2025 5:59 AM CDT Luigi NEUMANN LAB BLOOD ORDERABLES F inal Result [facility] [address] Department [place] [address] * (ABNORMAL) CBC without differential (03/24/2025 4:22 AM CDT) Pathologist [facility] WBC 9.82 3.80 - 9.90 K/cumm Hgb 8.8(L) 13.0 - 17.5 g/dL [facility] Hct 26.8(L) 38.9 - 50.3 % [facility] Plt 140(L) 150 - 400 K/cumm [facility] MPV 9.8 9.1 - 12.3 fL [facility] RBC 2.70(L) 4.30 - 5.80 M/cumm [facility] MCV 99.3(H) 81.3 - 96.4 fL [facility] MCH 32.6 27.1 - 33.3 pg [facility] MCHC 32.8 32.3 - 35.7 g/dL [facility] RDW CV 16.0(H) 11.1 - 14.9 % [facility] RDW SD 58.0(H) 35.7 - 48.1 fL [facility] NRBC abs 0.00 0.00 - 0.01 K/cumm [facility] Blood 03/24/2025 4:22 AM CDT 03/24/2025 5:59 AM CDT Luigi NEUMANN LAB BLOOD ORDERABLES F inal Result [facility] [address] Department [place] [address] * (ABNORMAL) Basic metabolic panel (03/24/2025 4:22 AM CDT) Sodium 143 135 - 145 mmol/L Potassium, pl 3.5 3.3 - 4.9 mmol/L [facility] Chloride 105 97 - 110 mmol/L [facility] CO2 25 22 - 32 mmol/L [facility] Anion gap 13 2 - 15 mmol/L [facility] BUN 43(H) 6 - 25 mg/dL [facility] Creatinine 2.95(H) 0.80 - 1.30 mg/dL [facility] Glucose 129 70 - 199 mg/dL [facility] Comment: Interpretive Data Fasting glucose >/= 126 [...] interpretive data was last revised 2022. Calcium 7.9(L) 8.5 - 10.3 mg/dL [facility] Blood 03/24/2025 4:22 AM CDT 03/24/2025 5:59 AM CDT us Luigi NEUMANN LAB BLOOD ORDERABLES F inal Result [facility] [address] Department [place] [address] * US Kidney Complete (03/23/2025 4:21 PM CDT) Anatomical Region Laterality Modality Kidney N/A Ultrasound 03/24/2025 6:44 AM CDT Impressions 03/24/2025 6:44 AM CDT 1. Moderate bilateral hydronephrosis. 2. Bilateral renal cysts. 3. Beckham catheter within a decompressed urinary bladder. Electronically signed by: Garry Chavarria M.D. Narrative 03/24/2025 6:44 AM CDT EXAM: US KIDNEY COMPLETE CLINICAL HISTORY: Chronic kidney disease, increase in Creatinine COMPARISON: CT KUB dated 12/22/2024. FINDINGS: Right kidney: The right kidney measures 12.6 x 6.0 x 5.0 cm. There is moderate right hydronephrosis. There is an 8.6 x 8.1 x 6.4 cm cyst in the lower pole of the right kidney. Left kidney: The left kidney measures 12.4 x 6.3 x 6.1 cm. There is moderate left hydronephrosis. There is a 6.1 x 5.8 x 5.0 cm cyst in the lower pole of the left kidney. Urinary bladder: There is a Beckham catheter within a decompressed urinary bladder. Procedure Note Garry Chavarria MD - 03/24/2025 EXAM: US KIDNEY COMPLETE CLINICAL HISTORY: Chronic kidney disease, increase in Creatinine COMPARISON: CT KUB dated 12/22/2024. FINDINGS: Right kidney: The right kidney measures 12.6 x 6.0 x 5.0 cm. There is moderate right hydronephrosis. There is an 8.6 x 8.1 x 6.4 cm cyst in the lower pole of the right kidney. Left kidney: The left kidney measures 12.4 x 6.3 x 6.1 cm. There is moderate left hydronephrosis. There is a 6.1 x 5.8 x 5.0 cm cyst in the lower pole of the left kidney. Urinary bladder: There is a Beckham catheter within a decompressed urinary bladder. IMPRESSION: 1. Moderate bilateral hydronephrosis. 2. Bilateral renal cysts. 3. Beckham catheter within a decompressed urinary bladder. Electronically signed by: aGrry Chavarria M.D. Kassandra Gonsalez NP IMG US PROCEDURES Final Res ult * (ABNORMAL) eGFR (03/23/2025 10:32 AM CDT) eGFR 20(L) >=60 mL/min/1. 73 [...] interpretive data was last reviewed 2021. Blood 03/23/2025 10:3 2 AM CDT 03/23/2025 10:55 AM CDT Julian Valdez MD LAB BLOOD ORDERABLES Angeles nicole Result Performing Organization Address [facility] Co de Phone Number [facility] [address] [place] [address] * (ABNORMAL) Hemoglobin and hematocrit (03/23/2025 10:32 AM CDT) [facility] Hgb 9.6(L) 13.0 - 17.5 g/dL Hct 29.0(L) 38.9 - 50.3 % [facility] Blood 03/23/2025 10:3 2 AM CDT 03/23/2025 10:55 AM CDT Julian Valdez MD LAB BLOOD ORDERABLES [place] nicole Result Performing Organization Address [facility] de Phone Number [facility] [address] Department [place] [address] * (ABNORMAL) Basic metabolic panel (03/23/2025 10:32 AM CDT) [facility] Sodium 143 135 - 145 mmol/L Potassium, pl 3.9 3.3 - 4.9 mmol/L [facility] Chloride 104 97 - 110 mmol/L [facility] CO2 23 22 - 32 mmol/L [facility] Anion gap 16(H) 2 - 15 mmol/L [facility] BUN 46(H) 6 - 25 mg/dL [facility] Creatinine 3.14(H) 0.80 - 1.30 mg/dL [facility] Glucose 132 70 - 199 mg/dL [facility] Comment: Interpretive Data Fasting glucose >/= 126 [...] 2022. Calcium 8.9 8.5 - 10.3 mg/dL [facility] Blood 03/23/2025 10:3 2 AM CDT 03/23/2025 10:55 AM CDT us Julian Valdez MD LAB BLOOD ORDERABLES Angeles l Result [facility] [address] Department of Laboratories [place], [place] [id number] * Surgical pathology (03/22/2025 3:12 PM CDT) Tissue (Prostate, transurethral resection) 03/22/2025 3:12 PM CDT Comment:Placed in formalin a t end of case Narrative [facility] - 03/24/2025 5:06 PM CDT [place] [address] [place], [place] [address] Tele: Lucrecia Woods MD - Implementation Advisor Note to Patients: This report may contain a detailed description of human tissue sent by a health care provider to the laboratory for pathologic evaluation. The content of this report is essential for diagnosis and may provide important critical findings. This information may be unfamiliar to patients to review without a medical professional present. It is advised that the patient review this report in the presence of a health care provider who can answer questions and explain the details. SURGICAL PATHOLOGY REPORT Patient Name: LALO BUFFY Mcgee JR. Address: [facility] [place] [address]- Gender: M : 1950 (Age: 74) Service: Surgery Location: [place] [address], Hospital #: [id number] Patient Type: [facility] Taken: 03/22/2025 Received 03/22/2025 Reported: 03/24/2025 Physician(s): MD Jatin Nguyen M.D. 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 Report Reviewed and Electronically Signed By Shirlene Hyde M.D. DIAGNOSIS COMMENT: The finding was relayed to Dr. Valdez via secure [employer] chat on 03/24/2026 at 5:05 p.m. SPECIMEN TYPE: A: PROSTATE CLINICAL IMPRESSION AND HISTORY: Enlarged prostate with urinary obstruction GROSS DESCRIPTION: Received in formalin labeled with [place] and prostate multiple childers irregular tissue fragments measuring 9.8 x 6.3 x 1.5 cm in aggregate and weighing 32 g in toto. Automatic Car Wash Attendant sections are submitted in [id number]. The remainder is submitted in [id number]. [facility]/03/22/2025 19:05 ,[facility] MICROSCOPIC DESCRIPTION: Microscopic examination supports the above captioned diagnosis. In four chips, there are haphazard, infiltrative-appearing glands with variably distinct nuclei and thermal distortion consistent with minimal adenocarcinoma. Immunohistochemical stains are applied to one of the four chips in order to confirm the morphologic impression given the absence of diffuse nucleomegaly in any of the foci. There is no reactivity with p63 or 34Be12 confirming the absence basal cells and the presence of invasion. P504S is negative. Clerical Data Follows A; 71577, 03847, 08343(2) REPORT IMAGES AND/OR SCANNED DOCUMENTS ONLY VIEWABLE IN PDF FORMAT The immunohistochemical test(s) cited in this report, if any, was developed and its performance characteristics determined by [facility] Pathology Department. It has not been cleared or approved by the U.S. Food and Drug Administration. The FDA has determined that such clearance or approval is not necessary. This test is used for clinical purposes. It should not be regarded as investigational or for research. [facility] Laboratory is certified under the Clinical Laboratory Improvement Amendments of 1988 (CLIA) as qualified to perform high complexity testing. Immunostains were performed on formalin-fixed paraffin embedded tissue using a polymer diaminobenzidine chromogen detection system. Antibodies used may include clone SP1 (rabbit monoclonal, estrogen receptor), clone 1E2 (rabbit monoclonal progesterone receptor), Ki-67 (rabbit monoclonal, 30-9), CD117 (rabbit polyclonal, c-kit), and anti-Her-2/marina (4B5) (rabbit monoclonal primary antibody). In the event that immunohistochemistry or special stains have been performed, attending physician has confirmed appropriateness of controls. Frozen section, operating room consultation, gross examination and dissection, and case sign out may have been performed in part or completely in the following laboratories: [facility], [address] [place] [id number] [place] [address], [address] [place] [address]. Julian Valdez MD LAB PATHOLOGY ORDERABLES Final Result Performing Organization Address City/[facility] Co de Phone Number PATHOLOGY [facility] Laboratory Receiving [address] [place] [id number] * [place] Fluoroscopy < 1 Hour (03/22/2025 1:53 PM CDT) Narrative RAD_PAC_[facility] - 03/22/2025 1:56 PM CDT The images from this study are not interpreted by Radiology. Please refer to the physician's procedure / OR operative note. Julian Valdez MD IMG FLUOROSCOPY PROCEDURE S Final Result Performing Organization Address [facility] Co de Phone Number [facility] * [place] AN ELECTIVE ENDOTRACHEAL AIRWAY, [place] AN PROCEDURE PLACEHOLDER (03/22/2025 1:45 PM CDT) Narrative Tiffany Deluca CRNA - 03/22/2025 1:45 PM CDT Tiffany Deluca CRNA 03/22/2025 1:46 PM Airway Patient location: OR Urgency: elective Indications for airway management: anesthesia Difficult airway: no Staff: Placed by: ROSI: Tiffany Deluca CRNA Emergent airway documentation: Risks and benefits discussed: yes Consent obtained: yes Consent given by: patient Airway prep: Preoxygenated: yes Patient position: sniffing Mask difficulty assessment: 2 - vent by mask + OA or adjuvant Spontaneous ventilation during airway: absent Sedation level during airway: GA Final airway details: Final airway type: endotracheal airway Tube type: ETT ETT size: 7.5 mm Cuffed: yes Technique used for successful ETT placement: video laryngoscopy Devices/Methods used in placement: intubating stylet Blade type: Jossy Video blade type: Glidescope Blade size: 3 Cormack-Lehane (video): grade IIa - partial view of glottis Cuff volume: 8 mL Cuff inflated with: air ETT to teeth: 19 cm Placement verified by: auscultation Airway secured with: silk tape Number of attempts: 1 Additional comments: Atraumatic intubation us Bharat Parkinson MD ANESTHESIA ORDERABLES Final Result * SCAN - LABS (01/27/2025) us Provider Scanning Edited Result - Final * Immunotyping, serum with interpretation (01/18/2025 7:34 AM CDT) Pathologist [facility] Immunosubtraction Please see comment Comment: NO PARAPROTEIN DETECTED Reviewed and signed by Ivan Sims MD, PhD 01/19/2025 Blood 01/18/2025 7:34 AM CDT 01/18/2025 8:21 AM CDT us Hermelindo Butler MD LAB BLOOD ORDER ELANA Final Result Performing Organization Address City/State/ZIP Co sc Phone Number [facility] [place] [address] * (ABNORMAL) eGFR (01/18/2025 7:34 AM CDT) Pathologist [facility] eGFR 32(L) >=60 mL/min/1. 73 m2 Comment: [...] MD LAB BLOOD ORDER ELANA Final Result [facility] [place] [address] * (ABNORMAL) Differential, auto (01/18/2025 7:34 AM CDT) Neutrophil abs 4.38 1.50 - 6.50 K/cumm Comment:Testing performed by : [facility], [address] [place], [place] [phone] Lymphocyte abs 1.00 0.80 - 3.30 K/cumm [facility] Comment:Testing performed by : [facility], [address] [place], [place] [phone] Monocyte abs 0.52 0.20 - 0.80 K/cumm [facility] Comment:Testing performed by : [facility], [address] [place] [address] Eosinophil abs 0.66(H) 0.00 - 0.50 K/cumm [facility] Comment:Testing performed by : [facility], [address] [place] [address] Basophil abs 0.03 0.00 - 0.10 K/cumm [facility] Comment:Testing performed by : [facility], [address] [place] [phone] Neutrophil pct 66.5 % [facility] Comment: Interpretive Data Percent cell count reference ranges are not reported, since discordance with absolute values may lead to misinterpretation of CBC data. Current Interpretive Data was last revised on 2017. Testing performed by: [facility], [address] [place] [phone] Lymphocyte pct 15.2 % [facility] Comment: Interpretive Data Percent cell count reference ranges are not reported, since discordance with absolute values may lead to misinterpretation of CBC data. Current Interpretive Data was last revised on 2017. Testing performed by: [facility], [address] [place] [phone] Monocyte pct 7.9 % [facility] Comment: Interpretive Data Percent cell count reference ranges are not reported, since discordance with absolute values may lead to misinterpretation of CBC data. Current Interpretive Data was last revised on 2017. Testing performed by: [facility], [address] [place] [phone] Eosinophil pct 10.0 % [facility] Comment: Interpretive Data Percent cell count reference ranges are not reported, since discordance with absolute values may lead to misinterpretation of CBC data. Current Interpretive Data was last revised on 2017. Testing performed by: [facility], [address] [place] [phone] Basophil pct 0.4 % [facility] Comment: Interpretive Data Percent cell count reference ranges are not reported, since discordance with absolute values may lead to misinterpretation of CBC data. Current Interpretive Data was last revised on 2017. Testing performed by: [facility], [address] [place] [phone] Blood 01/18/2025 7:34 AM CDT 01/18/2025 7:38 AM CDT us Hermelindo Butler MD LAB BLOOD ORDER ELANA Final Result [facility] Department [place] [address] * (ABNORMAL) Immunoglobulin free light chains (01/18/2025 7:34 AM CDT) Pathologist [facility] [place]/Lambda ratio [facility] See Comment 0.26 - 1.65 Comment: Unable to calculate exact result. Interpretive Data The Binding Site FreeLite assay procedure was used. Results from different manufacturers or methods may not be comparable. Serial testing should be performed using the same methods and instrumentation. Current Interpretive Data was last revised on 2023. [place] free light chain BJH <0.06(L) 0.33 - 1.94 mg/dL MT [facility] Comment: Interpretive Data The Binding Site FreeLite assay procedure was used. Results from different manufacturers or methods may not be comparable. Serial testing should be performed using the same methods and instrumentation. Current Interpretive Data was last revised on 2023. Lambda free light chain BJH <0.14(L) 0.57 - 2.63 mg/dL [facility] Comment: Interpretive Data The Binding Site FreeLite assay procedure was used. Results from different manufacturers or methods may not be comparable. Serial testing should be performed using the same methods and instrumentation. Current Interpretive Data was last revised on 2023. Blood 01/18/2025 7:34 AM CDT 01/18/2025 8:21 AM CDT Hermelindo Butler MD LAB BLOOD ORDER ELANA Final Result [facility] [place] [address] * (ABNORMAL) CBC with auto differential (01/18/2025 7:34 AM CDT) [facility] WBC 6.59 3.80 - 9.90 K/cumm Comment:Testing performed by : [facility], [address] [place] [phone] Hgb 11.8(L) 13.0 - 17.5 g/dL [facility] Comment:Testing performed by : [facility], [address] [place], [place] [phone] Hct 35.3(L) 38.9 - 50.3 % [facility] Comment:Testing performed by : [facility], [address] [place], [place] [phone] Plt 147(L) 150 - 400 K/cumm [facility] Comment:Testing performed by : [facility], [address] [place], [place] [phone] MPV 7.4 6.8 - 10.4 fL [facility] Comment:Testing performed by : [facility], [address] [place], [place] [phone] RBC 3.94(L) 4.30 - 5.80 M/cumm [facility] Comment:Testing performed by : [facility], [address] [place], [place] [phone] MCV 89.6 81.3 - 96.4 fL [facility] Comment:Testing performed by : [facility], [address] [place], [place] [phone] MCH 30.0 27.1 - 33.3 pg [facility] Comment:Testing performed by : [facility], [address] [place], [place] [phone] MCHC 33.5 32.3 - 35.7 g/dL [facility] Comment:Testing performed by : [facility], [address] [place], [place] [phone] RDW CV 16.9(H) 11.1 - 14.9 % [facility] Comment:Testing performed by : [facility], [address] [place], [place] [phone] NRBC abs 0.00 0.00 - 0.01 K/cumm [facility] Comment:Testing performed by : [facility], [address] [place], [place] [phone] Blood 01/18/2025 7:34 AM CDT 01/18/2025 7:38 AM CDT Hermelindo Butler MD LAB BLOOD ORDER ELANA Final Result Performing Organization Address City/[facility] Co de Phone Number [facility] Department [place] [address] * (ABNORMAL) Protein electrophoresis with reflex, serum with interpretation (01/18/2025 7:34 AM CDT) [facility] Protein, sr 5.8(L) 6.2 - 8.2 g/dL Albumin 3.8 3.2 - 5.0 g/dL [facility] Alpha-1 globulin 0.4 0.2 - 0.4 g/dL [facility] Alpha-2 globulin 0.7 0.5 - 1.0 g/dL [facility] Beta-1 globulin 0.4 0.3 - 0.6 g/dL [facility] Beta-2 globulin 0.3 0.2 - 0.6 g/dL [facility] Gamma globulin 0.2(L) 0.5 - 1.7 g/dL [facility] SPEP interp Please see comment [facility] Comment: Possible abnormal restricted peak in Beta-2 region Decreased gamma globulins See immunotyping for further information Reviewed and signed by Ivan Sims MD, PhD 01/19/2025 Blood 01/18/2025 7:34 AM CDT 01/18/2025 8:21 AM CDT Hermelindo Butler MD LAB BLOOD ORDER ELANA Final Result Performing Organization Address City/[facility]/ZIP Co de Phone Number [facility] Department [place] [address] * Lactate dehydrogenase (LD) (01/18/2025 7:34 AM CDT) [facility] Lactate dehydrogenase (LDH) 134 100 - 250 Units/L Blood 01/18/2025 7:34 AM CDT 01/18/2025 7:39 AM CDT Hermelindo Butler MD LAB BLOOD ORDER ELANA Final Result [facility] [place] [address] * (ABNORMAL) IgA (01/18/2025 7:34 AM CDT) Immunoglobulin A <5(L) 70 - 400 mg/dL Blood 01/18/2025 7:34 AM CDT 01/18/2025 8:05 AM CDT Hermelindo Butler MD LAB BLOOD ORDER ELANA Final Result Performing Organization Address [facility] Co de Phone Number [facility] [place] [address] * IgM (01/18/2025 7:34 AM CDT) Immunoglobulin M 58 40 - 230 mg/dL Blood 01/18/2025 7:34 AM CDT 01/18/2025 8:05 AM CDT Hermelindo Butler MD LAB BLOOD ORDER ELANA Final Result Performing Organization Address City/[facility] Co de Phone Number [facility] [place] [address] * (ABNORMAL) IgG (01/18/2025 7:34 AM CDT) Immunoglobulin G <300(L) 700 - 1,600 mg/dL Blood 01/18/2025 7:34 AM CDT 01/18/2025 8:05 AM CDT us Hermelindo Butler MD LAB BLOOD ORDER ELANA Final Result [facility] [place] [address] * (ABNORMAL) Comprehensive metabolic panel (01/18/2025 7:34 AM CDT) Sodium 143 135 - 145 mmol/L Potassium, pl 4.3 3.3 - 4.9 mmol/L [facility] Chloride 107 97 - 110 mmol/L [facility] CO2 25 22 - 32 mmol/L [facility] Anion gap 11 2 - 15 mmol/L [facility] BUN 32(H) 6 - 25 mg/dL [facility] Creatinine 2.16(H) 0.80 - 1.30 mg/dL [facility] Glucose 112 70 - 199 mg/dL [facility] Comment: Interpretive Data Fasting glucose [...] 2022. Calcium 9.4 8.5 - 10.3 mg/dL [facility] Bilirubin, total 0.4 0.1 - 1.2 mg/dL [facility] Protein, pl 6.0(L) 6.5 - 8.5 g/dL [facility] Albumin 4.0 3.5 - 5.0 g/dL [facility] Alk phos 70 40 - 130 Units/L [facility] ALT 15 7 - 55 Units/L [facility] AST 15 10 - 50 Units/L [facility] Blood 01/18/2025 7:34 AM CDT 01/18/2025 7:39 AM CDT us Hermelindo Butler MD LAB BLOOD ORDER ELANA Final Result [facility] [place] [address] * (ABNORMAL) PSA diagnostic (08/06/2024 7:43 AM SIMONIZER) PSA-Total 6.28(H) <=6.20 ng/mL Comment: Interpretive Data [...] last revised 21. Blood 08/06/2024 7:43 AM SIMONIZER 08/06/2024 7:52 AM SIMONIZER Hermelindo Butler MD LAB BLOOD ORDER ELANA Final Result Performing Organization Address [facility]/ZIP Co de Phone Number [facility] [place] [place] [address] * Hepatitis C antibody (10/16/2021 9:50 AM CDT) Pathologist [facility] Hep C Ab Nonreactive Nonreactive [facility] Comment:Antibodies to HCV no t detected. Does NOT exclude the possibility of recent exposure to HCV. 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 ADVANCE DIRECTIVE 11/29/2017 11:05 AM FOX R OF SENIOR MECHANICAL PROJECT MANAGER ADVANCE DIRECTIVE 11/12/2017 3:59 PM POWER OF SENIOR MECHANICAL PROJECT MANAGER * Full Code (Latest Code Status on File) Date Activated Date Inactivated Comments 03/22/2025 6:24 PM 03/24/2025 9:58 PM * LIMITED - No CPR Date Activated Date Inactivated Comments 12/22/2024 12:45 [...] Comments 09/11/2024 1:51 AM 09/15/2024 9:22 PM Care Teams Transmission Mechanic Relationship Specialty Start Date End Date Jatin Gamble MD [address] [place] [address] PCP - General 10/07/16 Hermelindo Butler MD [address] [place] [address] Medical Oncologist/Hematologi Medical Oncology 12/02/17 Roberto Rjoo MD [address] [address] Medical Oncologist/Hematologi Hematology and Oncology 12/02/17 Jatin Gamble MD [address] [place] [address] Referring Physician Internal Medicine 12/02/17 Francoise Fagan NP [address] [place] [address] Nurse Practitioner Medical Oncology 08/03/20 [place] [address] Consulting Physician Otolaryngology 10/04/22 [place] [address] [place] [address] Consulting Physician Urology 05/28/23 Salvador Norris MD [address] [place] [address] Consulting Physician Infectious Diseases 09/15/24 Miscellaneous, Not In File 09/15/24
--- OUTSIDE RECORDS SUMMARY | 2025-04-07 10:01 | XMS_ITS | Encounter Summary ---
Author Organization [facility] Address [address] [place] [address] Care Team Providers Care Professor Of Journalism Name Role Phone Jatin Gamble MD Primary Care Provider [phone] Hermelindo Butler MD Unavailable Roberto Rojo MD Unavailable [phone] Jatin Gamble MD Unavailable [phone] Garry Dukes MD Unavailable [phone] Francoise Fagan NP Unavailable [phone] Erlin Servin MD Unavailable [phone] Julian Valdez MD Unavailable [phone] Salvador Norris MD Unavailable Miscellaneous, Not In File Unavailable Unava ilable Encounter Details Date Type Department Care Team (Late st Contact Info) Description 04/29/2022 Community Orders [facility] EpicCare Link Jatin Gamble MD [address] [place] [address] Elevated prostate specific antigen (PSA) (Primary Dx) Social History Tobacco Use Types Packs/Day Years Used Date Smoking Tobacco: Never Smokeless Tobacco: Never Alcohol Use Standard Drinks/Week Comments No 0 (1 standard drink = 0.6 oz pur e alcohol) Sex and Gender Information Value Date Recorded Sex Assigned at Not on file Legal 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 Gender Identity Not on file Sexual [...] documented as of this encounter Care Teams Professor Of Journalism Relationship Specialty Start Date End Date Jatin Gamble MD [address] [place] [address] PCP - General 10/07/16 Hermelindo Butler MD [address] [place] [address] Medical [facility]cology 12/02/17 Roberto Rojo MD [address] [place] [id number] Medical Oncologist[facility] Hematology and Oncology 12/02/17 Jatin Gamble MD [address] [place] [address] Referring Physician Internal Medicine 12/02/17 Garry Dukes MD [address] [place], [place] [id number] Referring Physician Urology 12/02/17 05/27/23 Francoise Fagan NP [address] [place] [address] Nurse Practitioner Medical Oncology 08/03/20 Erlin Servin MD [address] [place] [address] Consulting Physician Otolaryngology 10/04/22 [place] [address] [place] [address] Consulting Physician Urology 05/28/23 Salvador Norris MD [address] [place] [address] Consulting Physician Infectious Diseases 09/15/24 Miscellaneous, Not In File 09/15/24 documented as of this encounter
--- OUTSIDE RECORDS SUMMARY | 2025-04-07 10:01 | XMS_ITS ---
Author Organization [facility] Address [address] [place] [address] Care Team Providers Care Regional Property Manager Name Role Phone Jatin Gamble MD Primary Care Provider [phone] Hermelindo Butler MD Unavailable Roberto Rojo MD Unavailable [phone] Jatin Gamble MD Unavailable [phone] Francoise Fagan NP Unavailable [phone] Erlin Servin MD Unavailable [phone] Julian Valdez MD Unavailable Salvador Norris MD Unavailable Miscellaneous, Not In File Unavailable Unava ilable Active Problems Patient Care Coordination No te Formatting of this note is d ifferent from the original. BMT Inpatient Care Coordination Overview Diagnosis [place] [address] Treatment Plan [id number] for [facility] JOHN Transplant/IEC Planning BMT/IEC [...] Medical Assistants Post-Discharge Follow-Up Living Situation/Distance from [facility] (45 min) Caregiver Self, [...] is a risk of orbital injury and FINANCIAL HEALTH COUNSELOR injury which could result in blindness or [...] this. Assessment & Plan (07/09/2022 7:42 PM MEDICAL CASH POSTER): I talked with him quite a bit [...] weeks. Assessment & Plan (05/26/2022 4:16 PM MEDICAL CASH POSTER): He does have pretty significant sinusitis and [...] day. Assessment & Plan (05/26/2022 4:17 PM MEDICAL CASH POSTER): It is very possible that his cough could be due to sinusitis also. Hopefully that will continue to improve as we treat. He understands. Immunocompromised 11/13/2021 Multiple myeloma not having achieved remission 0 10/28/2021 Cancer Staging:Clinical stage from 10/16/2021:RISS Stage II(Vnhu-6-psavpoazxxdpy (mg/L): 3.7, Albumin (g/dL): 4.2, ISS: Stage [...] and Dexamethasone in June 2021 Clinical trial [id number] initiated on 10/29/21; C46D1 08/03/24. BMT following [...] he got a TTE on 10/19 at [facility] however unclear why not currently in the system - May need to repeat TTE prior to treatment if results unavailable - Continue OI ppx with acyclovir 400mg BID - Begin trial [id number], a Bispecific Antibody Targeting BCMA treatment - [...] he got a TTE on 10/19 at [facility] however unclear why not currently in the system - May need to repeat TTE prior to treatment if results unavailable - Continue OI ppx with acyclovir 400mg BID - Begin trial [id number], a Bispecific Antibody Targeting BCMA treatment - [...] BID Assessment & Plan (05/31/2021 10:51 AM MEDICAL CASH POSTER): Continue home pepcid, asx Renal mass 05/30/2021 Assessment & Plan (05/31/2021 10:51 AM MEDICAL CASH POSTER): Admitted for observation after L renal mass [...] 07/17/2023 Assessment & Plan (05/31/2021 10:52 AM MEDICAL CASH POSTER): Follows with oncology on daratumumab monotherapy -counts [...] blood in urine Follow up pathology from [facility] high-grade papillary urothelial carcinoma (grade 2) --follow [...] --Chronic back pain prn oxy ---on hold 2 confusion--resumed now that confusion resolved --Acute confusion [...] blood in urine Follow up pathology from [facility] high-grade papillary urothelial carcinoma (grade 2) --follow [...] supplementation Assessment & Plan (05/31/2021 10:51 AM MEDICAL CASH POSTER): Stable on home losartan, nebivolol, triamterene-HCTZ 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/23/2013 Current Treatment and Therapy Plans - INPT/OUTPT - [facility] - MM - [id number] - Arm B - Dose Expansion Phase - TNB-383B Monotherapy* Plan Start Date:10/29/2021 Plan Provider:Hermelindo Butler MD Linked Problems Multiple myeloma in relapse (HCC) Treatment Medications Current Day (Day 1 , Cycle 51 - Planned for 01/25/2025) INV-[facility] (/TN B-383B.2024) Etentamig (TNB-383B/ABBV-383) IVPB in 50 mL (ANTI-LAG-3)INV-[facility] Etentamig (TNB-383B/ABBV-383) (/TNB-383B.2024)INV-[facility] sodium chloride 0.9 % INV-[facility] Etentamig (TNB-383B/ABBV-383) (IVSS-FREE FORMULATION) (/TNB383B.2024) 40 mg in sodium chloride 0.9% 30 mL IVPBINV-[facility] sodium chloride 0.9 % flush IVPB [...] Automatic Entry Manual Entr y Fluoro Time 3.188 minutes 3.188 minutes 0 minutes Air kerma at the reference point (Ka,r) 98.591 mGy 9 8.591 mGy 0 mGy DLP 3,692 mGycm 3,692 [...]
[2025-04-07 10:35] LABS: Anion Gap 8 mmol/L (4-12); Blood Urea Nitrogen 37 mg/dL (9-20); Calcium 9.3 mg/dL (8.4-10.2); Carbon Dioxide 28 mmol/L (22-30); Chloride 106 mmol/L (98-107); Estimated Glomerular Filt Rate 35; Glucose 115 mg/dL (65-110); Osmolality Calculated 303 mOsm/kg (285-295); Potassium 4.6 mmol/L (3.4-5.0); Sodium 142 mmol/L (137-145)
== END 2025-04-07 09:21 | disposition home or self-care (01) ==
LOC: CHSLAB 09:23
PROVIDERS: PCP Urology; Visit Provider Urology
DX: R33.9 Retention of urine, unspecified (principal)
CPT/HCPCS: 36415; 80048

== ENCOUNTER 2025-05-31 14:11 | Outpatient (CLI) | payer MEDICARE, SELFPAY ==
--- OUTSIDE RECORDS SUMMARY | 2025-04-28 03:00 | XMS_ITS ---
Author Organization [facility] Address [address] [place], [place] [address] Care Team Providers Care Adjunct Physical Education Instructor Name Role Phone DARLINE AN Unavailable [phone] Jatin Gamble Unavailable Unavailable Allergies No Known Allergies REASON FOR VISIT *General care, runs Gonzalez's Medications Medication SIG (Take, Route, Fr equency, Duration) Notes Start Date End Date Status Allopurinol Active [place] Active Famotidine Active Losartan Potassium A ctive Social History Tobacco Use: Social History Observation Description Date Details (start date - stop date) Never Smoker NA - NA Social History Drug/Alcohol: Social Info Question Answer Notes AUDIT-C (Standard) Did you have a drink containing alcohol in the past year? No Points 0 Interpretation Negative Tobacco Use: Social Info Question Answer Notes Tobacco Control (Standard) Tobacco use: Nonsmoker Vital Signs Height 69 in 04/28/2025 Weight 275 lbs 04/28/2025 BMI 40.61 kg/m2 04/28/2025 Height-cm 175.26 cm 04/28/2025 Weight-kg 124.74 kg 04/28/2025 Encounters Encounter Location Date Provider Diagnosis [address] [id number] 04/28/2025 DARLINE AN Type 2 diabetes mellitus with other circulatory complications E11.59 ; Tinea unguium B35.1 ; Pain in right foot M79.671 ; Pain in left foot M79.672 ; Localized edema R60.0 ; Acquired keratosis [keratoderma] palmaris et plantaris L85.1 ; Pain in right toe(s) M79.674 and Pain in left toe(s) M79.675 Assessments Encounter Date Diagnosis (ICD Code) Assessment Notes Treatment Notes Treatment Clinical Notes Section Notes 04/28/2025 Type 2 diabetes mellitus with other circulatory complications (ICD-10 - E11.59) Diabetic Foot Care: The patient was educated on diabetes and the lower extremity. The patient was instructed to check his feet daily to report any problems or signs of infection immediately. The patient was provided written information on Diabetic Foot Care as well as the Amputation Prevention Guide. 04/28/2025 Tinea unguium (ICD-10 - B35.1) NAIL DEBRIDEMENT: Nails 1-5 Bilateral were debrided extensively with nail nippers and emery board, reducing length and girth to pink healthy tissue with any subungual debris and necrotic tissue removed 04/28/2025 Pain in right foot (ICD-10 - M79.671) 04/28/2025 Pain in left foot (ICD-10 - M79.672) 04/28/2025 Localized edema (ICD-10 - R60.0) Edema Recommendations: Advised patient on edema treatment recommendations. Recommendation for periodic elevation of feet and lower legs through the day. Recommend support compression hose. Recommend dietary restrictions salt intake. Followup with family physician for potential diuretic management if needed. 04/28/2025 Acquired keratosis [keratoderma] palmaris et plantaris (ICD-10 - L85.1) Hyperkeratosis x 2: The skin was prepped with isopropyl alcohol. Using a 15-blade scalpel, the hyperkeratotic skin lesions were sharply debrided down to healthy appearing skin. 04/28/2025 Pain in right toe(s) (ICD-10 - M79.674) 04/28/2025 Pain in left toe(s) (ICD-10 - M79.675) Plan Of Treatment Treatment Notes Assessment Notes Type 2 diabetes mellitus wit h other circulatory complications Diabetic Foot Care: The patient was educated on diabetes and the lower extremity. The patient was instructed to check his feet daily to report any problems or signs of infection immediately. The patient was provided written information on Diabetic Foot Care as well as the Amputation Prevention Guide. Tinea unguium NAIL DEBRIDEMENT: Na ils 1-5 Bilateral were debrided extensively with nail nippers and emery board, reducing length and girth to pink healthy tissue with any subungual debris and necrotic tissue removed Localized edema Edema Recommendations: Advised patient on edema treatment recommendations. Recommendation for periodic elevation of feet and lower legs through the day. Recommend support compression hose. Recommend dietary restrictions salt intake. Followup with family physician for potential diuretic management if needed. Acquired keratosis [keratode rma] palmaris et plantaris Hyperkeratosis x 2: The skin was prepped with isopropyl alcohol. Using a 15-blade scalpel, the hyperkeratotic skin lesions were sharply debrided down to healthy appearing skin. Next Appt Details Follow Up: 1 Week, Reason: History and Physical Notes * HPI (History of Present Illness) Category Sub-Category Detail Notes Category Not es HPI General care Patient presents to the office for at risk foot care. Patient states that their nails are thickened, elongated and painful. Patient states that it is aggravated by shoe gear. Onset is gradual. Patient denies being diabetic., Patient denies taking blood thinners., Date last seen by Dr. Gamble was January 2025., Initials ab Examination Category Sub-Category Detail Notes Category Not es Constitutional Constitutional The patient is a wake, alert, well developed, well groomed and well nourished. Dermatologic Skin findings: bilateral, Skin is thin, atrophic and lacking pedal hair. Nail pathology: bilateral, digit 1, incurvation, discolored, with onychomycosis Hyperkeratotic Skin Lesion There is evid ence of hyperkeratotic skin lesions present on the, left lateral plantar foot Musculoskeletal Muscle Strength Muscle strength is 5/5 in regards to dorsiflexion, plantarflexion, inversion, and eversion in bilateral lower extremities. Neurologic Mulders sign: negative, bilateral Gross sensation Gross sensation is i ntact to light touch. Vascular Dorsalis pedis pulse: bilateral, 1/4 Posterior tibial pulse: bilaterally, 2/4 Capillary refill: bilaterally, less th an 3 seconds Edema: bilateral, pitting e carolin left, +3, right, +1 calves loose and nontender Progress Notes * Michele MAYDOB:[birth year] (74 yo M)Acc No.[id number]:04/28/2025 Progress Notes Patient: Michele Ly Provider: Lena AN :1950 A ge:74 Y S ex:Male Date:04/28/2025 Address:[address], [facility] Subjective: * Chief Complaints: * * General care, runs Gonzalez's * HPI: H PI: General care P darius presents to the office for at risk foot care. Patient states that their nails are thickened, elongated and painful. Patient states that it is aggravated by shoe gear. Onset is gradual. Patient denies being diabetic., Patient denies taking blood thinners., Date last seen by Dr. Gamble was January 2025., Initials ab. * ROS: G eneral / Constitutional: Patient denies c hills, fatigue, fever. P atient complains of p ain, weakness. M usculoskeletal: Patient complains of a rthritis. P eripheral Vascular: Patient complains of p ainful extremities, chronic edema.? S kin: Patient complains of d iscoloration, fungal nails, calluses and corns, nail changes. N eurologic: Patient denies p aralysis, Numbness. * Medical History: Acid reflux Kidney stones Neuropathy Cancer Leg/Feet cramps Bladder infections Medical History Verified * Surgical History: Turbinate Reduction 03/2025 Surgical History verified. * Hospitalization/Major Diagno stic Procedure: Denies Past Hospitalization. Hospitalization Verified. * Family History: N o Family History documented.. F amily History Verified.. * Social History: T obacco Use: T obacco Control (Standard) T obacco use: N onsmoker. D rug/Alcohol: A NITA-C (Standard) D id you have a drink containing alcohol in the past year? N o,?Points 0 , I nterpretation N egative. Social History Verified. * Medications: T akingLosartan Potassium Famotidine [place] Allopurinol Medication List reviewed and reconciled with the patientTaking Losartan Potassium Taking Famotidine Taking [place] Taking Allopurinol Medication List reviewed and reconciled with the patient * Allergies: N .K.D.A.yesAllergies Verified. Objective: * Vitals: S hoe Size: 9.5, Wt:275lbs, Wt-k.74 kg, Ht: 69 in, Ht-cm: 175.26 cm, BMI:40.61Index, Body Surface Area: 2.46. * Examination: C onstitutional: Constitutional T he patient is awake, alert, well developed, well groomed and well nourished.. D ermatologic: Skin findings: b ilateral, Skin is thin, atrophic and lacking pedal hair.. Nail pathology: b ilateral, digit 1, incurvation, discolored, with onychomycosis. Hyperkeratotic Skin Lesion T here is evidence of hyperkeratotic skin lesions present on the, left lateral plantar foot. M usculoskeletal: Muscle Strength M uscle strength is 5/5 in regards to dorsiflexion, plantarflexion, inversion, and eversion in bilateral lower extremities.. ? N eurologic: Mulders sign: n egative, bilateral. Gross sensation G ross sensation is intact to light touch..? V ascular: Dorsalis pedis pulse: b ilateral, 1/4. Posterior tibial pulse: b ilaterally, 2/4. Capillary refill: b ilaterally, less than 3 seconds. Edema: b ilateral, pitting edema left, +3, right, +1 calves loose and nontender. Assessment: * Assessment: 1. T inea unguium - B35.1 (Primary) 2 . T ype 2 diabetes mellitus with other circulatory complications - E11.59 3 . P ain in right foot - M79.671 ? 4 . P ain in left foot - M79.672 5 . L ocalized edema - R60.0 & #160; 6 . 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 P ain in left toe(s) - M79.675 ? Plan: * Treatment: 2. T ype 2 diabetes mellitus with other circulatory complications Notes: Diabetic Foot Care: The patient was educated on diabetes and the lower extremity. The patient was instructed to check his feet daily to report any problems or signs of infection immediately. The patient was provided written information on Diabetic Foot Care as well as the Amputation Prevention Guide. 3. L ocalized edema Notes: Edema Recommendations: Advised patient on edema treatment recommendations. Recommendation for periodic elevation of feet and lower legs through the day. Recommend support compression hose. Recommend dietary restrictions salt intake. Followup with family physician for potential diuretic management if needed. 4. A cquired keratosis [keratoderma] palmaris et plantaris Notes: Hyperkeratosis x 2: The skin was prepped with isopropyl alcohol. Using a 15-blade scalpel, the hyperkeratotic skin lesions were sharply debrided down to healthy appearing skin. * Follow Up: 1 Week Billing Information: * Visit Code: 52066 Office Visit, New Pt., Level 3. * Electronic signature of RITA AN DPM on 05/31/2025 at 02:15 PM CASING IN LINE FEEDER Sign off status: Pending * Provider: Lena AN Date: 06/28/2024 Generated for Adela singh/Jun/Mateusz on: 08/01/2024 02:15 PM CASING IN LINE FEEDER
--- NOTE | ~2025-05-31 | US_ITS ---
EXAMINATION:US venous doppler LE LT INDICATION:Left calf swelling and redness TECHNIQUE: Multiple grayscale, color flow and Doppler images of the left lower extremity deep venous systems were obtained and reviewed. COMPARISON:No prior studies for comparison. FINDINGS: The common femoral, superficial femoral and popliteal veins demonstrate normal respiratory variation, augmentation and compressibility. Color flow is also seen within the greater saphenous and profunda veins. The left posterior tibial and peroneal veins are not visualized due to edema and pa tient body habitus. IMPRESSION: 1: No lower extremity deep venous thrombosis. Limited study. Reviewed, dictated and finalized at location O. RAISING SPECIALIST
--- OUTSIDE RECORDS SUMMARY | 2025-05-31 14:15 | XMS_ITS | Encounter Summary ---
Author Organization [facility] Address [address] [place] [address] Phone Care Team Providers Care Scientific Programmer Name Role Phone Jatin Gamble MD Primary Care Provider Hermelindo Butler MD Unavailable Roberto Rojo MD Unavailable [phone] Jatin Gamble MD Unavailable [phone] Garry Dukes MD Unavailable [phone] Francoise Fagan NP Unavailable Erlin Servin MD Unavailable Julian Valdez MD Unavailable [phone] Salvador Norris MD Unavailable Miscellaneous, Not In File Unavailable Unava Joaquim Nichole MD Unavailable [phone] Encounter Details Date Type Department Care Team (Latest Contact Info) Description 10/16/2017 Orders Only [facility] CONVERSION Scanning, Provider Social History Tobacco Use Types Packs/Day Years Used Date Smoking Tobacco: Never Assessed Sex and Gender Information Value Date Recorded Sex Assigned at Not on file Legal 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 Gender Identity Not on file Sexual Orientation [...] documented as of this encounter Care Teams Scientific Programmer Relationship Specialty Start Date End Date Jatin Gamble MD [address] [place] [address] PCP - General 10/07/16 Hermelindo Butler MD [address] [place] [address] [facility] 12/02/17 Roberto Rojo MD [address] [place] [address] [facility] Oncology 12/02/17 Jatin Gamble MD [address] [place] [address] Referring Physician Internal Medicine 12/02/17 Garry Dukes MD [address] [place] [address] Referring Physician Urology 12/02/17 05/27/23 Francoise Fagan, MOTOR POOL CLERK [address] [place] [address] Nurse Practitioner Medical Oncology 08/03/20 Erlin Servin MD [address] [place] [address] Consulting Physician Otolaryngology 10/04/22 [place] [address] [place] [address] Consulting Physician Urology 05/28/23 Salvador Norris MD [address] [place] [address] Consulting Physician Infectious Diseases 09/15/24 Miscellaneous, Not In File 09/15/24 Joaquim Neff MD [address] [place], [place] [id number] Peoplesoft Analyst Nephrology 05/10/25 documented as of this encounter
--- OUTSIDE RECORDS SUMMARY | 2025-05-31 14:15 | XMS_ITS | Clinical Summary ---
Author Organization [facility] Address [address] [place] [address] Care Team Providers Care Hot Plate Plywood Press Operator Name Role Phone Unavailable Primary Care [...] Vaccines (1 of 2) 2002 COVID-19 Vaccine (1 - 2024-2 6 season) 2025 Influenza Adult (#1) 2025 RSV Immunization or 60+ Years (1 - 1-dose 75+ series) 12/12/2027 Hepatitis A Vaccines Aged Out No long er eligible based on patient's age to complete this topic Meningococcal B Vaccine Aged Out No l onger eligible based on patient's age to complete this topic Meningococcal Vaccine Aged Out No edgard karime eligible based on patient's age to complete this topic RSV Immunizations Under 20 Months Aged Out No longer eligible based on patient's age to complete this topic
--- OUTSIDE RECORDS SUMMARY | 2025-05-31 14:15 | XMS_ITS | Encounter Summary ---
Author Organization [facility] Address [address] [place] [address] Care Team Providers Care Credit Reporting Clerk Name Role Phone Jatin Gamble MD Primary Care Provider [phone] Hermelindo Butler MD Unavailable Roberto Rojo MD Unavailable [phone] Jatin Gamble MD Unavailable [phone] Garry Dukes MD Unavailable [phone] Francoise Fagan NP Unavailable [phone] Erlin Servin MD Unavailable [phone] Julian Valdez MD Unavailable Salvador Norris MD Unavailable Miscellaneous, Not In File Unavailable Unava ilJoaquim Bashir MD Unavailable [phone] Encounter Details Date Type Department Care Team (Late st Contact Info) Description 11/22/2021 Documentation [facility] [address] [place] [address] Forrest Epstein, RN Social History Tobacco Use Types Packs/Day Years Used Date Smoking Tobacco: Never Smokeless Tobacco: Never Alcohol Use Standard Drinks/Week Comments No 0 (1 standard drink = 0.6 oz pur e alcohol) Sex and Gender Information Value Date Recorded Sex Assigned at Not on file 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 Gender Identity Not on file Sexual Orientation [...] documented as of this encounter Care Teams Credit Reporting Clerk Relationship Specialty Start Date End Date Jatin Gamble MD [address] [place] [address] PCP - General 10/07/16 Hermelindo Butler MD [address] [place] [address] [facility] 12/02/17 Roberto Rojo MD [address] [place] [address] [facility] Oncology 12/02/17 Jatin Gamble MD [address] [place] [address] Referring Physician Internal Medicine 12/02/17 Garry Dukes MD [address] [place] [address] Referring Physician Urology 12/02/17 05/27/23 Francoise Fagan NP [address] [place] [address] Nurse Practitioner Medical Oncology 08/03/20 Erlin Servin MD [address] [place] [address] Consulting Physician Otolaryngology 10/04/22 [place] [address] [place] [address] Consulting Physician Urology 05/28/23 Salvador Norris MD [address] [place] [address] Consulting Physician Infectious Diseases 09/15/24 Miscellaneous, Not In File 09/15/24 Joaquim Neff MD [address] [place], [place] [id number] Upholstery Sewer Nephrology 05/10/25 documented as of this encounter
--- OUTSIDE RECORDS SUMMARY | 2025-05-31 14:15 | XMS_ITS ---
Author Organization [facility] Address [address] [place] [address] Care Team Providers Care Faith Healer Name Role Phone Jatin Gamble MD Primary Care Provider [phone] Hermelindo Butler MD Unavailable Roberto Rojo MD Unavailable [phone] Jatin Gamble MD Unavailable [phone] Francoise Fagan NP Unavailable [phone] Erlin Servin MD Unavailable [phone] Julian Valdez MD Unavailable Salvador Norris MD Unavailable Miscellaneous, Not In File Unavailable Unava ilable Joaquim Neff MD Unavailable [phone] Active Problems Patient Care Coordination No te Formatting of this note is d ifferent from the original. BMT Inpatient Care Coordination Overview Diagnosis [place] [address] Treatment Plan Clinical Trial [id number] Ramesh Reason for Admission JOHN Transplant/IEC Planning [...] Medical Assistants Post-Discharge Follow-Up Living Situation/Distance from [place], [place] (45 min) Caregiver Self, Lab/Transfusion Frequency [...] is a risk of orbital injury and SEWING MACHINE OPERATOR SEMIAUTOMATIC injury which could result in blindness or [...] this. Assessment & Plan (07/09/2022 7:42 PM HYDROGENATION STILL OPERATOR): I talked with him quite a bit [...] weeks. Assessment & Plan (05/26/2022 4:16 PM HYDROGENATION STILL OPERATOR): He does have pretty significant sinusitis and [...] day. Assessment & Plan (05/26/2022 4:17 PM HYDROGENATION STILL OPERATOR): It is very possible that his cough could be due to sinusitis also. Hopefully that will continue to improve as we treat. He understands. Immunocompromised 11/13/2021 Multiple myeloma not having achieved remission 0 10/28/2021 Cancer Staging:Clinical stage from 10/16/2021:RISS Stage II(Zsiv-5-lxhyunetbdris (mg/L): 3.7, Albumin (g/dL): 4.2, ISS: Stage [...] and Dexamethasone in June 2021 Clinical trial [id number] initiated on 10/29/21; C46D1 08/03/24. BMT following [...] he got a TTE on 10/19 at [facility] however unclear why not currently in the system - May need to repeat TTE prior to treatment if results unavailable - Continue OI ppx with acyclovir 400mg BID - Begin trial [id number], a Bispecific Antibody Targeting BCMA treatment - [...] he got a TTE on 10/19 at [facility] however unclear why not currently in the system - May need to repeat TTE prior to treatment if results unavailable - Continue OI ppx with acyclovir 400mg BID - Begin trial [id number], a Bispecific Antibody Targeting BCMA treatment - [...] BID Assessment & Plan (05/31/2021 10:51 AM HYDROGENATION STILL OPERATOR): Continue home pepcid, asx Renal mass 05/30/2021 Assessment & Plan (05/31/2021 10:51 AM HYDROGENATION STILL OPERATOR): Admitted for observation after L renal mass [...] 07/17/2023 Assessment & Plan (05/31/2021 10:52 AM HYDROGENATION STILL OPERATOR): Follows with oncology on daratumumab monotherapy -counts [...] blood in urine Follow up pathology from qtrusgsnz-oif-vsoldzob high-grade papillary urothelial carcinoma (grade 2) --follow [...] blood in urine Follow up pathology from wayrhyxgd-iwr-buzqbbkc high-grade papillary urothelial carcinoma (grade 2) --follow [...] supplementation Assessment & Plan (05/31/2021 10:51 AM HYDROGENATION STILL OPERATOR): Stable on home losartan, nebivolol, triamterene-HCTZ 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/23/2013 Current Treatment and Therapy Plans - INPT/OUTPT - [facility] - MM - LNP308O.0001 - Arm B - Dose Expansion Phase - TNB-383B Monotherapy* Plan Start Date:10/29/2021 Plan Provider:Hermelindo Butler MD Linked Problems Multiple myeloma in relapse (HCC) Treatment Medications Current Day (Day 1 , Cycle 51 - Planned for 01/25/2025) [facility] (/TN B-383B.0001) Etentamig (TNB-383B/ABBV-383) IVPB [facility]entam[facility] (TNB-383B/ABBV-383) (/TNB-383B.2024)[facility] sodium chloride 0.9 % [facility] Etentamig (TNB-383B/ABBV-383) (IVSS-FREE FORMULATION) (/TNB383B.2024) 40 mg [...]
--- OUTSIDE RECORDS SUMMARY | 2025-05-31 14:15 | XMS_ITS | Patient Health Record ---
Author Organization [facility] Address [address] [place], [place] [id number] Care Team Providers Care Spring Layer Name Role Phone DARLINE AN Unavailable [phone] Jatin Gamble Unavailable Unavailable Allergies No Known Allergies Reason For Referral No Information Medications Medication SIG (Take, Route, Fr equency, Duration) Notes Start Date End Date Status Allopurinol Active [place] Active Famotidine Active Losartan Potassium A ctive [...] Control (Standard) Tobacco use: Nonsmoker Vital Signs Height-cm 175.26 cm 04/28/2025 Weight-kg 124.74 kg 04/28/2025 Height 69 in 04/28/2025 Weight 275 lbs 04/28/2025 BMI 40.61 kg/m2 04/28/2025 Encounters Encounter Location Date Provider Diagnosis [address] [id number] 04/28/2025 DARLINE AN Type 2 diabetes mellitus [...] Notes Treatment Clinical Notes Section Notes 04/28/2025 Tinea unguium (ICD-10 - B35.1) NAIL DEBRIDEMENT: Nails 1-5 Bilateral were debrided extensively with nail nippers and emery board, reducing length and girth to pink healthy tissue with any subungual debris and necrotic tissue removed 04/28/2025 Type 2 diabetes mellitus with other circulatory complications (ICD-10 - E11.59) Diabetic Foot Care: The patient was educated on diabetes and the lower extremity. The patient was instructed to check his feet daily to report any problems or signs of infection immediately. The patient was provided written information on Diabetic Foot Care as well as the Amputation Prevention Guide. 04/28/2025 Pain in right foot (ICD-10 - [...] toe(s) (ICD-10 - M79.675) Plan Of Treatment No Information Insurance Providers Payer Name Payer Address Payer Phone Subscriber Number Group Number Insured Name Patient Relationship to Insured Coverage Start Date Coverage End Date Medicare Part B [place] [address] [place] [phone] [id number] Michele Hernandez Self - patient is the insured 1 [employer] [address] [address] [place], [place] [phone] [id number] Michele Hernandez Self - patient is the insured Medical (General) History Medical History History ICD Code acid reflux kidney stones neuropathy Cancer Leg/Feet cramps Bladder infections Surgical History Surgery Date(Month/Year) Turbinate Reduction 03/2025
--- OUTSIDE RECORDS SUMMARY | 2025-05-31 14:16 | XMS_ITS | Clinical Summary ---
Author Organization [facility] Address [address] [place] [address] Care Team Providers Care Manager Quality Compliance Name Role Phone Jatin Gamble MD Primary Care Provider [phone] Hermelindo Butler MD Unavailable Roberto Rojo MD Unavailable [phone] Jatin Gamble MD Unavailable [phone] Francoise Fagan NP Unavailable [phone] Erlin Servin MD Unavailable [phone] Julian Valdez MD Unavailable [phone] Salvador Norris MD Unavailable Miscellaneous, Not In File Unavailable Unava ilable Joaquim Neff MD Unavailable [phone] Allergies Active Allergy Reactions Criticality Noted Date [...] Inpatient Care Coordination Overview Diagnosis MM Floor [address] Treatment Plan [facility] [id number] [facility] Admission JOHN Transplant/IEC Planning [...] Medical Assistants Post-Discharge Follow-Up Living Situation/Distance from [place], [place] (45 min) Caregiver Self, Lab/Transfusion Frequency Phone: Fax: Venous Access & Care implanted vascular device Local Oncologist Contact Phone: Fax: Post-Discharge Office Visit (H30) [facility] [place] Miscellaneous Notes: Problem Noted Date Diagnosed [...] is a risk of orbital injury and IT APPLICATION DEVELOPMENT MANAGER injury which could result in blindness [...] this. Assessment & Plan (07/09/2022 7:42 PM NEUROSURGICAL PHYSICIAN ASSISTANT): I talked with him quite a bit [...] weeks. Assessment & Plan (05/26/2022 4:16 PM NEUROSURGICAL PHYSICIAN ASSISTANT): He does have pretty significant sinusitis and [...] day. Assessment & Plan (05/26/2022 4:17 PM NEUROSURGICAL PHYSICIAN ASSISTANT): It is very possible that his cough could be due to sinusitis also. Hopefully that will continue to improve as we treat. He understands. Immunocompromised 11/13/2021 Multiple myeloma not having achieved remission 0 10/28/2021 Cancer Staging:Clinical stage from 10/16/2021:RISS Stage II(Lzqo-1-dxpfwcpcwfipm (mg/L): 3.7, Albumin (g/dL): 4.2, ISS: Stage [...] and Dexamethasone in June 2021 Clinical trial [id number] initiated on 10/29/21; C46D1 08/03/24. BMT following [...] he got a TTE on 10/19 at [facility] however unclear why not currently in the system - May need to repeat TTE prior to treatment if results unavailable - Continue OI ppx with acyclovir 400mg BID - Begin trial [id number], a Bispecific Antibody Targeting BCMA treatment - [...] he got a TTE on 10/19 at [facility] however unclear why not currently in the system - May need to repeat TTE prior to treatment if results unavailable - Continue OI ppx with acyclovir 400mg BID - Begin trial [id number], a Bispecific Antibody Targeting BCMA treatment - [...] BID Assessment & Plan (05/31/2021 10:51 AM NEUROSURGICAL PHYSICIAN ASSISTANT): Continue home pepcid, asx Renal mass 05/30/2021 Assessment & Plan (05/31/2021 10:51 AM NEUROSURGICAL PHYSICIAN ASSISTANT): Admitted for observation after L renal mass [...] 07/17/2023 Assessment & Plan (05/31/2021 10:52 AM NEUROSURGICAL PHYSICIAN ASSISTANT): Follows with oncology on daratumumab monotherapy -counts [...] blood in urine Follow up pathology from ntohwqkxj-jxb-opzqsisq high-grade papillary urothelial carcinoma (grade 2) --follow [...] blood in urine Follow up pathology from rhotarrca-exk-hhlihdim high-grade papillary urothelial carcinoma (grade 2) --follow [...] supplementation Assessment & Plan (05/31/2021 10:51 AM NEUROSURGICAL PHYSICIAN ASSISTANT): Stable on home losartan, nebivolol, triamterene-HCTZ Secondary [...] Encounters Date Type Department Care Team Description 04/27/2025 9:50 AM NEUROSURGICAL PHYSICIAN ASSISTANT Office Visit [facility] Medicine Nephrology [facility] 5th [place] [address] [place] [address] Stage 3a chronic kidney disease (HCC) (Primary Dx); Benign prostatic hyperplasia without lower urinary tract symptoms; Primary hypertension; Renal osteodystrophy 04/19/2025 10:15 AM NEUROSURGICAL PHYSICIAN ASSISTANT Office Visit [facility] Medicine Bone Marrow Transplant [address] [facility] [address] [place] [address] Ligia in, Hermelindo Stone MD Multiple myeloma, remission status unspecified (HCC) (Primary Dx) 04/19/2025 9:15 AM NEUROSURGICAL PHYSICIAN ASSISTANT Clinical Support [facility] - Lab Collection [address] [facility] [address] [place] [address] Multiple myeloma, remission status unspecified (HCC) 04/18/2025 Telephone [facility] Medicine Scheduling [address] [place] [address] Francoise Santoro 03/22/2025 1:08 PM CDT Anesthesia Event [facility] Operating Room [address] [place] [phone] Bharat Parkinson MD Strand, Sarah B., MD 03/22/2025 1:00 PM CDT - 03/22/2025 2:30 PM CDT Surgery [facility] Operating Room [address] [place] [phone] Julian Valdez MD Transurethral Resection of Prostate 03/22/2025 10:49 AM CDT - 03/24/2025 5:53 PM CDT Hospital Encounter [address] [address] Julian Valdez MD Enlarged prostate with urinary obstruction Discharge Disposition: Discharge to home or self care 03/07/2025 10:15 AM CDT Pre-Admission Testing [facility] Pre Anesthesia Testing [address] [place] [phone] from Last 3 Months Immunizations Immunization Administration [...] chemotherapy has chemo every 21 days at [facility] tx 09/24/22 Cough patient states D r [...] often do you attend chur ch or restorationist services? More than 4 times per year [...] any time in the past 12 m [facility], were you homeless or living in a custodial (including now)? No 12/22/2024 Social Connection and Isolation Panel Answer Date Recorded In a typical week, how many times do you talk on the phone with family, friends, or neighbors? More than three times a week 03/24/2025 How often do you get togethe r with friends or relatives? More than three times a week 03/24/2025 How often do you attend chur or restorationist services? More than 4 times per year [...] any time in the past 12 m onths, were you homeless or living in a custodial (including now)? No 03/24/2025 [facility] Utilities Answer Date Recorded In [...] on file Legal Sex 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 NEUROSURGICAL PHYSICIAN ASSISTANT Gender Identity Not on file Sexual Orientation Not on file Last Filed Vital Signs Vital Sign Reading Time Taken Comments Blood Pressure 123/72 04/27/2025 9:48 AM NEUROSURGICAL PHYSICIAN ASSISTANT Pulse 66 04/27/2025 9:48 AM NEUROSURGICAL PHYSICIAN ASSISTANT Temperature 36.6 C (97.9 F) 04/19/2025 9:02 AM NEUROSURGICAL PHYSICIAN ASSISTANT Respiratory Rate 18 04/19/2025 9:02 AM NEUROSURGICAL PHYSICIAN ASSISTANT Oxygen Saturation 99% 04/27/2025 9:48 AM NEUROSURGICAL PHYSICIAN ASSISTANT Inhaled Oxygen Concentration - - Weight 126.1 kg (278 lb) 04/27/2025 9:48 AM NEUROSURGICAL PHYSICIAN ASSISTANT Height 172.7 cm (5' 8) 04/27/2025 9:48 AM NEUROSURGICAL PHYSICIAN ASSISTANT Body Mass Index 42.27 04/27/2025 9:48 AM NEUROSURGICAL PHYSICIAN ASSISTANT Plan of Treatment Health Maintenance Due Date [...] history exists Medical Devices Implanted Type Area Clinical Science Liaison Device Identifier Shelf Expiration Date Model / Serial / Lot Port Other - see comments Right: Chest Wall Description:Upon arrival to , not accessed [employer] Stent Ureteral Set Double Pigtail Tapered Tip Contour [id number] Hydroplus Coated [id number] - [id number] Implanted:Qty: 1 on 03/22/2025 by Julian Valdez MD at [facility] Left: Ureter [employer] 11/18/2027 [id number] / / [id number] Explanted Type Area Clinical Science Liaison Device Identifier Shelf Expiration Date Model / Serial / Lot [employer] Stent Ureteral Set Double Pigtail Tapered Tip Contour [id number] Hydroplus Coated [id number] - [id number] Implanted:Qty: 1 on 12/16/2024 by Julian Valdez MD at [facility] Explanted:Qty: 1 on 03/22/2025 by Julian Valdez MD at [facility] Left: Ureter [employer] 04/21/2027 [id number] / / [id number] Procedures Procedure Name Priority Date/Time Associated Diagnosis Comments DIFFERENTIAL AUTO Routine 04/19/2025 8:4 1 AM NEUROSURGICAL PHYSICIAN ASSISTANT Multiple myeloma, remission status unspecified (HCC) CBC WITH AUTO DIFFERENTIAL Routine 04/19/2025 8:41 AM NEUROSURGICAL PHYSICIAN ASSISTANT Multiple myeloma, remission status unspecified (HCC) IMMUNOGLOBULIN FREE LIGHT CHAINS Routine 04/19/2025 8:41 AM NEUROSURGICAL PHYSICIAN ASSISTANT Multiple myeloma, remission status unspecified (HCC) PROTEIN ELECTROPHORESIS, WITH REFLEX, SERUM Routine 04/19/2025 8:41 AM NEUROSURGICAL PHYSICIAN ASSISTANT Multiple myeloma, remission status unspecified (HCC) IMMUNOTYPING Routine 04/19/2025 8:41 AM NEUROSURGICAL PHYSICIAN ASSISTANT Multiple myeloma, remission status unspecified (HCC) EGFR Routine 04/19/2025 8:35 AM NEUROSURGICAL PHYSICIAN ASSISTANT Multiple myeloma, remission status unspecified (HCC) COMPREHENSIVE METABOLIC PANEL Routine 04/19/2025 8:35 AM NEUROSURGICAL PHYSICIAN ASSISTANT Multiple myeloma, remission status unspecified (HCC) IGA Routine 04/19/2025 8:35 AM NEUROSURGICAL PHYSICIAN ASSISTANT Multiple myeloma, remission status unspecified (HCC) IGG Routine 04/19/2025 8:35 AM NEUROSURGICAL PHYSICIAN ASSISTANT Multiple myeloma, remission status unspecified (HCC) IGM Routine 04/19/2025 8:35 AM NEUROSURGICAL PHYSICIAN ASSISTANT Multiple myeloma, remission status unspecified (HCC) LACTATE DEHYDROGENASE Routine 04/19/2025 8:35 AM NEUROSURGICAL PHYSICIAN ASSISTANT Multiple myeloma, remission status unspecified (HCC) EGFR Routine 03/24/2025 4:22 AM CDT BASIC [...] HOUR IP Routine 03/22/2025 1:53 PM CDT SD AN PROCEDURE PLACEHOLDER Routine 03/22/2025 1:45 PM CDT SD AN ELECTIVE ENDOTRACHEAL AIRWAY Routine 03/22/2025 1:45 PM CDT EXCHANGE STENT - URETERAL 03/22/2025 1:13 PM CDT Enlarged prostate with urinary obstruction CYSTOSCOPY/TRANSURETHR AL RESECTION OF PROSTATE 03/22/2025 1:13 PM CDT Enlarged prostate with urinary obstruction PSA DIAGNOSTIC Routine 08/06/2024 7:43 AM NEUROSURGICAL PHYSICIAN ASSISTANT Multiple myeloma, remission status unspecified (HCC) HEPATITIS C ANTIBODY STAT 10/16/2021 9:50 AM CDT Multiple myeloma in relapse (HCC) from Last 3 Months or Most Recently Relevant to Health Maintenance Results * Immunotyping, serum with interpretation (04/19/2025 8:41 AM NEUROSURGICAL PHYSICIAN ASSISTANT) Immunosubtraction Please see comment Comment: NO PARAPROTEIN DETECTED Reviewed and signed by Rufino Huff MD, PhD 04/20/2025 Blood 04/19/2025 8:41 AM NEUROSURGICAL PHYSICIAN ASSISTANT 04/19/2025 9:18 AM NEUROSURGICAL PHYSICIAN ASSISTANT us Hermelindo Butler MD LAB BLOOD ORDER ELANA Final Result [facility] [address] [place] [address] * Differential, auto (04/19/2025 8:41 AM NEUROSURGICAL PHYSICIAN ASSISTANT) Neutrophil abs 5.08 1.50 - 6.50 K/cumm Comment:Testing performed by : [facility], [address] [place] [phone] Lymphocyte abs 1.04 0.80 - 3.30 K/cumm [facility] Comment:Testing performed by : [facility], [address] [place] [address] Monocyte abs 0.56 0.20 - 0.80 K/cumm [facility] Comment:Testing performed by : [facility], [address] [place] [address] Eosinophil abs 0.38 0.00 - 0.50 K/cumm [facility] Comment:Testing performed by : [facility], [address] [place] [address] Basophil abs 0.04 0.00 - 0.10 K/cumm [facility] Comment:Testing performed by : [facility], [address] [place] [phone] Neutrophil pct 71.6 % [facility] Comment: Interpretive Data Percent cell count reference ranges are not reported, since discordance with absolute values may lead to misinterpretation of CBC data. Current Interpretive Data was last revised on 2017. Testing performed by: [facility], [address] [place] [phone] Lymphocyte pct 14.7 % [facility] Comment: Interpretive Data Percent cell count reference ranges are not reported, since discordance with absolute values may lead to misinterpretation of CBC data. Current Interpretive Data was last revised on 2017. Testing performed by: [facility], [address] [place], [place] [phone] Monocyte pct 7.9 % [facility] Comment: Interpretive Data Percent cell count reference ranges are not reported, since discordance with absolute values may lead to misinterpretation of CBC data. Current Interpretive Data was last revised on 2017. Testing performed by: [facility], [address] [place] [phone] Eosinophil pct 5.4 % [facility] Comment: Interpretive Data Percent cell count reference ranges are not reported, since discordance with absolute values may lead to misinterpretation of CBC data. Current Interpretive Data was last revised on 2017. Testing performed by: [facility], [address] [place] [phone] Basophil pct 0.5 % [facility] Comment: Interpretive Data Percent cell count reference ranges are not reported, since discordance with absolute values may lead to misinterpretation of CBC data. Current Interpretive Data was last revised on 2017. Testing performed by: [facility], [address] [place] [phone] Blood 04/19/2025 8:41 AM NEUROSURGICAL PHYSICIAN ASSISTANT 04/19/2025 8:47 AM NEUROSURGICAL PHYSICIAN ASSISTANT Hermelindo Butler MD LAB BLOOD ORDER ELANA Final Result [facility] [address] [place] [address] * (ABNORMAL) Immunoglobulin free light chains (04/19/2025 8:41 AM NEUROSURGICAL PHYSICIAN ASSISTANT) [place]/Lambda ratio BJ 0.59 0.26 - 1.65 Comment: Interpretive Data The Binding Site FreeLite assay procedure was used. Results from different manufacturers or methods may not be comparable. Serial testing should be performed using the same methods and instrumentation. Current Interpretive Data was last revised on 2023. [place] free light chain [facility] 0.10(L) 0.33 - 1.94 mg/dL [facility] Comment: Interpretive Data The Binding Site FreeLite assay procedure was used. Results from different manufacturers or methods may not be comparable. Serial testing should be performed using the same methods and instrumentation. Current Interpretive Data was last revised on 2023. Lambda free light chain [facility] 0.17(L) 0.57 - 2.63 mg/dL [facility] Comment: Interpretive Data The Binding Site FreeLite assay procedure was used. Results from different manufacturers or methods may not be comparable. Serial testing should be performed using the same methods and instrumentation. Current Interpretive Data was last revised on 2023. Blood 04/19/2025 8:41 AM NEUROSURGICAL PHYSICIAN ASSISTANT 04/19/2025 9:18 AM NEUROSURGICAL PHYSICIAN ASSISTANT Hermelindo Butler MD LAB BLOOD ORDER ELANA Final Result [facility] [address] [place] [address] * (ABNORMAL) CBC with auto differential (04/19/2025 8:41 AM NEUROSURGICAL PHYSICIAN ASSISTANT) WBC 7.10 3.80 - 9.90 K/cumm Comment:Testing performed by : [facility], [address] [place] [address] Hgb 10.2(L) 13.0 - 17.5 g/dL [facility] Comment:Testing performed by : [facility], [address] [place] [address] Hct 31.3(L) 38.9 - 50.3 % [facility] Comment:Testing performed by : [facility], [address] [place] [address] Plt 187 150 - 400 K/cumm [facility] Comment:Testing performed by : [facility], [address] [place] [address] MPV 6.9 6.8 - 10.[address] fL [facility] [facility] Comment:Testing performed by : [facility], [address] [place] [address] RBC 3.35(L) 4.30 - 5.80 M/cumm [facility] Comment:Testing performed by : [facility], [address] [place] [address] MCV 93.3 81.3 - 96.4 fL [facility] Comment:Testing performed by : [facility], [address] [place], [place] [phone] MCH 30.5 27.1 - 33.3 pg [facility] Comment:Testing performed by : [facility], [address] [place], [place] [phone] MCHC 32.7 32.3 - 35.7 g/dL [facility] Comment:Testing performed by : [facility], [address] [place], [place] [phone] RDW CV 15.4(H) 11.1 - 14.9 % [facility] Comment:Testing performed by : [facility], [address] [place], [place] [phone] NRBC abs 0.00 0.00 - 0.01 K/cumm [facility] Comment:Testing performed by : [facility], [address] [place] [phone] Blood 04/19/2025 8:41 AM NEUROSURGICAL PHYSICIAN ASSISTANT 04/19/2025 8:47 AM NEUROSURGICAL PHYSICIAN ASSISTANT Hermelindo Butler MD LAB BLOOD ORDER ELANA Final Result [facility] [address] [place] [address] * (ABNORMAL) Protein electrophoresis with reflex, serum with interpretation (04/19/2025 8:41 AM NEUROSURGICAL PHYSICIAN ASSISTANT) Protein, sr 5.9(L) 6.2 - 8.2 g/dL Albumin 3.8 3.2 - 5.0 g/dL [facility] Alpha-1 globulin 0.4 0.2 - 0.4 g/dL [facility] Alpha-2 globulin 0.8 0.5 - 1.0 g/dL [facility] Beta-1 globulin 0.5 0.3 - 0.6 g/dL [facility] Beta-2 globulin 0.3 0.2 - 0.6 g/dL [facility] Gamma globulin 0.2(L) 0.5 - 1.7 g/dL [facility] SPEP interp Please see comment [facility] Comment: No apparent monoclonal peak Decreased gamma globulins Electrophoretic pattern appears similar to previous sample 01/19/2025 See immunotyping for further information Reviewed and signed by Rufino Huff MD, PhD 04/20/2025 Blood 04/19/2025 8:41 AM NEUROSURGICAL PHYSICIAN ASSISTANT 04/19/2025 9:18 AM NEUROSURGICAL PHYSICIAN ASSISTANT Hermelindo Butler MD LAB BLOOD ORDER ELANA Final Result Performing Organization Address City/[facility]/ZIP Co de Phone Number [facility] [place] [address] * (ABNORMAL) eGFR (04/19/2025 8:35 AM NEUROSURGICAL PHYSICIAN ASSISTANT) eGFR 31(L) >=60 mL/min/1. 73 m2 Comment: [...] interpretive data was last reviewed 2021. Blood 04/19/2025 8:35 AM NEUROSURGICAL PHYSICIAN ASSISTANT 04/19/2025 8:49 AM NEUROSURGICAL PHYSICIAN ASSISTANT Hermelindo Butler MD LAB BLOOD ORDER ELANA Final Result Performing Organization Address City/[facility]/ZIP Co de Phone Number [facility] Department [place] [address] * Lactate dehydrogenase (LD) (04/19/2025 8:35 AM NEUROSURGICAL PHYSICIAN ASSISTANT) Pathologist [facility] Lactate dehydrogenase (LDH) 131 100 - 250 Units/L Blood 04/19/2025 8:35 AM NEUROSURGICAL PHYSICIAN ASSISTANT 04/19/2025 8:49 AM NEUROSURGICAL PHYSICIAN ASSISTANT Hermelindo Butler MD LAB BLOOD ORDER ELANA Final Result [facility] [place] [address] * (ABNORMAL) IgA (04/19/2025 8:35 AM NEUROSURGICAL PHYSICIAN ASSISTANT) [facility] Immunoglobulin A <5(L) 70 - 400 mg/dL Blood 04/19/2025 8:35 AM NEUROSURGICAL PHYSICIAN ASSISTANT 04/19/2025 9:06 AM NEUROSURGICAL PHYSICIAN ASSISTANT us Hermelindo Butler MD LAB BLOOD ORDER ELANA Final Result Performing Organization Address City/[facility]/ZIP Co de Phone Number [facility] Department [place] [address] * (ABNORMAL) IgM (04/19/2025 8:35 AM NEUROSURGICAL PHYSICIAN ASSISTANT) [facility] Immunoglobulin M <25(L) 40 - 230 mg/dL Blood 04/19/2025 8:35 AM NEUROSURGICAL PHYSICIAN ASSISTANT 04/19/2025 9:06 AM NEUROSURGICAL PHYSICIAN ASSISTANT Hermelindo Butler MD LAB BLOOD ORDER ELANA Final Result Performing Organization Address City/[facility]/ZIP Co de Phone Number [facility] [place] [address] * (ABNORMAL) IgG (04/19/2025 8:35 AM NEUROSURGICAL PHYSICIAN ASSISTANT) Immunoglobulin G <300(L) 700 - 1,600 mg/dL Blood 04/19/2025 8:35 AM NEUROSURGICAL PHYSICIAN ASSISTANT 04/19/2025 9:06 AM NEUROSURGICAL PHYSICIAN ASSISTANT Hermelindo Butler MD LAB BLOOD ORDER ELANA Final Result [facility] [address] [place] [address] * (ABNORMAL) Comprehensive metabolic panel (04/19/2025 8:35 AM NEUROSURGICAL PHYSICIAN ASSISTANT) Sodium 141 135 - 145 mmol/L Potassium, pl 4.3 3.3 - 4.9 mmol/L [facility] Chloride 106 97 - 110 mmol/L [facility] CO2 26 22 - 32 mmol/L [facility] Anion gap 9 2 - 15 mmol/L [facility] BUN 36(H) 6 - 25 mg/dL [facility] Creatinine 2.23(H) 0.80 - 1.30 mg/dL [facility] Glucose 125 70 - 199 mg/dL [facility] Comment: Interpretive Data Fasting glucose >/= [...] 2022. Calcium 9.4 8.5 - 10.3 mg/dL [facility] Bilirubin, total 0.4 0.1 - 1.2 mg/dL [facility] Protein, pl 6.2(L) 6.5 - 8.5 g/dL [facility] Albumin 4.0 3.5 - 5.0 g/dL [facility] Alk phos 77 40 - 130 Units/L [facility] ALT 14 7 - 55 Units/L [facility] AST 13 10 - 50 Units/L [facility] Blood 04/19/2025 8:35 AM NEUROSURGICAL PHYSICIAN ASSISTANT 04/19/2025 8:49 AM NEUROSURGICAL PHYSICIAN ASSISTANT us Hermelindo Butler MD LAB BLOOD ORDER ELANA Final Result Performing Organization Address City/[facility]/ZIP Co de Phone Number [facility] [address] [place] [address] * (ABNORMAL) eGFR (03/24/2025 4:22 AM CDT) [...] NEUMANN LAB BLOOD ORDERABLES F inal Result [facility] [address] [place] [address] * (ABNORMAL) CBC without differential (03/24/2025 4:22 AM CDT) WBC 9.82 3.80 - 9.90 K/cumm Hgb 8.8(L) 13.0 - 17.5 g/dL [facility] Hct 26.8(L) 38.9 - 50.3 % [facility] Plt 140(L) 150 - 400 K/cumm [facility] MPV 9.8 9.1 - 12.3 fL [facility] RBC 2.70(L) 4.30 - 5.80 M/cumm [facility] MCV 99.3(H) 81.3 - 96.4 fL [facility] MCH 32.6 27.1 - 33.3 pg [facility] MCHC 32.8 32.3 - 35.7 g/dL [facility] RDW CV 16.0(H) 11.1 - 14.9 % [facility] RDW SD 58.0(H) 35.7 - 48.1 fL [facility] NRBC abs 0.00 0.00 - 0.01 K/cumm [facility] Blood 03/24/2025 4:22 AM CDT 03/24/2025 5:59 AM CDT Luigi NEUMANN LAB BLOOD ORDERABLES F inal Result [facility] [address] [place] [address] * (ABNORMAL) Basic metabolic panel (03/24/2025 4:22 AM CDT) Pathologist [facility] Sodium 143 135 - 145 mmol/L Potassium, pl 3.5 3.3 - 4.9 mmol/L [facility] Chloride 105 97 - 110 mmol/L [facility] CO2 25 22 - 32 mmol/L [facility] Anion gap 13 2 - 15 mmol/L [facility] BUN 43(H) 6 - 25 mg/dL [facility] Creatinine 2.95(H) 0.80 - 1.30 mg/dL [facility] Glucose 129 70 - 199 mg/dL [facility] Comment: Interpretive Data Fasting glucose [...] 2022. Calcium 7.9(L) 8.5 - 10.3 mg/dL [facility] Blood 03/24/2025 4:22 AM CDT 03/24/2025 5:59 AM CDT Luigi NEUMANN LAB BLOOD ORDERABLES F inal Result [facility] [address] [place] [address] * [place] Kidney Complete (03/23/2025 4:21 PM [...] bladder. Electronically signed by: Garry Chavarria M.D. Kassandra Gonsalez NP IMG US [...] MD LAB BLOOD ORDERABLES Angeles l Result Performing Organization Address [facility] Co de Phone Number [facility] [address] [facility] [email or web address] [address] * (ABNORMAL) Hemoglobin and hematocrit (03/23/2025 10:32 AM CDT) Hgb 9.6(L) 13.0 - 17.5 g/dL Hct 29.0(L) 38.9 - 50.3 % [facility] Blood 03/23/2025 10:3 2 AM CDT 03/23/2025 10:55 AM CDT Julian Valdez MD LAB BLOOD ORDERABLES Angeles l Result Performing Organization Address [facility] de Phone Number [facility] [address] [facility] [place] [address] * (ABNORMAL) Basic metabolic panel (03/23/2025 10:32 AM CDT) Sodium 143 135 - 145 mmol/L Potassium, pl 3.9 3.3 - 4.9 mmol/L [facility] Chloride 104 97 - 110 mmol/L [facility] CO2 23 22 - 32 mmol/L [facility] Anion gap 16(H) 2 - 15 mmol/L [facility] BUN 46(H) 6 - 25 mg/dL [facility] Creatinine 3.14(H) 0.80 - 1.30 mg/dL [facility] Glucose 132 70 - 199 mg/dL [facility] Comment: Interpretive Data Fasting glucose [...] Calcium 8.9 8.5 - 10.3 mg/dL [facility] Blood 03/23/2025 10:3 2 AM CDT 03/23/2025 10:55 AM CDT us Julian Valdez MD LAB BLOOD ORDERABLES Angeles nicole Result [facility] [address] [place] [address] * Surgical pathology (03/22/2025 3:12 PM CDT) Tissue (Prostate, transurethral resection) 03/22/2025 3:12 PM CDT Comment:Placed in formalin a t end of case Narrative PATHOLOGY [facility] - 03/24/2025 5:06 PM CDT [place] [id number] [place], [place] [address] Tele: Lucrecia Woods MD - Music Engraver Note to Patients: This report may contain [...] the details. SURGICAL PATHOLOGY REPORT Patient Name: BUFFY VALLEDuke PITTMAN Address: [facility] [place] [address]- Gender: M : 1950 (Age: 74) Service: Surgery Location: [place] [address], Hospital #: [id number] Patient Type: [facility] Taken: 03/22/2025 Received 03/22/2025 Reported: 03/24/2025 Physician(s): MD Jatin Nguyen M.D. 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 Report Reviewed and Electronically Signed By Shirlene Hyde M.D. DIAGNOSIS COMMENT: The finding was relayed to Dr. Valdez via secure AskBot chat on 03/24/2026 at 5:05 p.m. SPECIMEN TYPE: A: PROSTATE CLINICAL IMPRESSION AND HISTORY: Enlarged prostate with urinary obstruction GROSS DESCRIPTION: Received in formalin labeled with [place] and prostate multiple childers irregular tissue fragments measuring 9.8 x 6.3 x 1.5 cm in aggregate and weighing 32 g in toto. [employer] sections are submitted in A1-A13. The remainder is submitted in A14-A20. [facility]/03/22/2025 19:05 ,[facility] MICROSCOPIC DESCRIPTION: Microscopic examination supports [...] P504S is negative. Clerical Data Follows A; 06546, 96785, 21148(2) REPORT IMAGES AND/OR SCANNED DOCUMENTS ONLY VIEWABLE IN PDF FORMAT The immunohistochemical test(s) cited in this report, if any, was developed and its performance characteristics determined by [facility] Pathology Department. It has not been cleared or approved by the U.S. Food and Drug Administration. The FDA has determined that such clearance or approval is not necessary. This test is used for clinical purposes. It should not be regarded as investigational or for research. [facility] Laboratory is certified under the Clinical [...] part or completely in the following laboratories: [facility], [address] [place] [address], [address] [place] [id number]. Julian Valdez MD LAB PATHOLOGY ORDERABLES Final Result Performing Organization Address [facility]/ZIP Co de Phone Number PATHOLOGY [facility] Laboratory Receiving [address] [place] [address] * [place] Fluoroscopy < 1 Hour (03/22/2025 1:53 PM CDT) Narrative [facility] - 03/22/2025 1:56 PM CDT The images from this study are not interpreted by Radiology. Please refer to the physician's procedure / OR operative note. Julian Valdez MD IMG FLUOROSCOPY PROCEDURE S Final Result Performing Organization Address [facility]/ZIP Co de Phone Number [facility] * SD AN ELECTIVE ENDOTRACHEAL AIRWAY, SD AN PROCEDURE PLACEHOLDER (03/22/2025 1:45 PM CDT) Tiffany Davis CRNA - 03/22/2025 1:45 PM CDT Tiffany Deluca CRNA 03/22/2025 1:46 PM Airway Patient location: OR Urgency: elective Indications for airway management: anesthesia Difficult airway: no Staff: Placed by: IN STORE DEMONSTRATOR: Tiffany Deluca CRNA Emergent airway documentation: Risks [...] of attempts: 1 Additional comments: Atraumatic intubation Bharat Parkinson MD ANESTHESIA ORDERABLES Final Result * (ABNORMAL) PSA diagnostic (08/06/2024 7:43 AM NEUROSURGICAL PHYSICIAN ASSISTANT) Pathologist [facility] PSA-Total 6.28(H) <=6.20 ng/mL Comment: Interpretive Data [...] last revised 21. Blood 08/06/2024 7:43 AM NEUROSURGICAL PHYSICIAN ASSISTANT 08/06/2024 7:52 AM NEUROSURGICAL PHYSICIAN ASSISTANT Hermelindo Butler MD LAB BLOOD ORDER ELANA Final Result [facility] [address] [place] [address] * Hepatitis C antibody (10/16/2021 9:50 AM CDT) Pathologist [facility] Hep C Ab Nonreactive Nonreactive [facility] Comment:Antibodies to HCV no t detected. Does NOT exclude the possibility of recent exposure to HCV. Blood 10/16/2021 9:50 AM CDT 10/16/2021 11:22 AM CDT Hermelindo dupree MD LAB MICROBIOLOGY - GENERAL ORDERABLES Edited Result - Final [facility] [address] [place] [address] from Last 3 Months or Most Recently Relevant to Health Maintenance Insurance MEDICARE [employer] SENIOR SUPPLEMENT MEDICARE AET SENIOR SUPPLEMENT MEDICARE AET[employer] SENIOR SUPPLEMENT Advance Directives For more information, please contact: [phone] Documents on File Type Date Recorded Patient [employer] Expl anation ADVANCE DIRECTIVE 11/29/2017 11:05 AM FOX R OF SOCIAL PROBLEMS SPECIALIST ADVANCE DIRECTIVE 11/12/2017 3:59 PM POWER OF SOCIAL PROBLEMS SPECIALIST * Full Code (Latest Code Status on [...] 1:51 AM 09/15/2024 9:22 PM Care Teams Manager Quality Compliance Relationship Specialty Start Date End Date Jatin Gamble MD [address] [place] [address] PCP - General 10/07/16 Hermelindo Butler MD [address] [place] [address] Medical Oncologist/Hematologi Medical Oncology 12/02/17 Roberto Rojo MD [address] [place] [address] Medical Oncologist/Hematologi Hematology and Oncology 12/02/17 Jatin Gamble MD [address] [place] [address] Referring Physician Internal Medicine 12/02/17 Francoise Fagan NP [address] [place] [address] Nurse Practitioner Medical Oncology 08/03/20 Erlin Servin MD [address] [place] [address] Consulting Physician Otolaryngology 10/04/22 [place] [address] [address] Consulting Physician Urology 05/28/23 Salvador Norris MD [address] [place] [address] Consulting Physician Infectious Diseases 09/15/24 Miscellaneous, Not In File 09/15/24 Joaquim Neff MD [address] [facility] [address] [place] [address] Presidential Support Specialist Nephrology 05/10/25
--- OUTSIDE RECORDS SUMMARY | 2025-05-31 14:16 | XMS_ITS | Encounter Summary ---
Author Organization [facility] Healthcare Address [address] [place] [address] Care Team Providers Care Volunteer Firefighter Name Role Phone Jatin Gamble MD Primary Care Provider [phone] Hermelindo Butler MD Unavailable Roberto Rojo MD Unavailable [phone] Jatin Gamble MD Unavailable [phone] Garry Dukes MD Unavailable [phone] Francoise Fagan NP Unavailable [phone] Erlin Servin MD Unavailable [phone] Julian Valdez MD Unavailable Salvador Norris MD Unavailable Miscellaneous, Not In File Unavailable Unava ilJoaquim Bashir MD Unavailable [phone] Encounter Details Date Type Department Care Team (Late st Contact Info) Description 04/29/2022 Community Orders [facility] EpicCare Link Jatin Gamble MD [address] [place] [address] Elevated prostate specific antigen (PSA) (Primary Dx) Social History Tobacco Use Types Packs/Day Years Used Date Smoking Tobacco: Never Smokeless Tobacco: Never Alcohol Use Standard Drinks/Week Comments No 0 (1 standard drink = 0.6 oz pur e alcohol) Sex and Gender Information Value Date Recorded Sex Assigned at Not on file Legal Sex 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 BOARD CERTIFIED ORTHODONTIST Gender Identity Not on file Sexual Orientation [...] documented as of this encounter Care Teams Volunteer Firefighter Relationship Specialty Start Date End Date Jatin Gamble MD [address] [place] [address] PCP - General 10/07/16 Hermelindo Butler MD [address] [place] [address] Medical Oncologist/Hematologi Medical Oncology 12/02/17 Roberto Rojo MD [address] [address] Medical Oncologist/Hematologi Hematology and Oncology 12/02/17 Jatin Gamble MD [address] [place] [address] Referring Physician Internal Medicine 12/02/17 Garry Dukes MD [address] [place] [address] Referring Physician Urology 12/02/17 05/27/23 Francoise Fagan NP [address] [place] [address] Nurse Practitioner Medical Oncology 08/03/20 Erlin Servin MD [address] [place] [address] Consulting Physician Otolaryngology 10/04/22 [place] [address] [address] Consulting Physician Urology 05/28/23 Salvador Norris MD [address] [place] [address] Consulting Physician Infectious Diseases 09/15/24 Miscellaneous, Not In File 09/15/24 Joaquim Neff MD [address] [place] [address] Account Service Representative Nephrology 05/10/25 documented as of this encounter
== END 2025-05-31 14:12 | disposition home or self-care (01) ==
LOC: CHSLAB 14:13
PROVIDERS: PCP Internal Medicine; Visit Provider Internal Medicine
DX: M79.89 Other specified soft tissue disorders (principal)
CPT/HCPCS: 93971

== ENCOUNTER 2025-06-01 07:39 | Outpatient (CLI) | payer MEDICARE, SELFPAY ==
--- OUTSIDE RECORDS SUMMARY | 2025-04-28 03:00 | XMS_ITS ---
Author Organization [facility] Address [address] [place], [place] [address] Care Team Providers Care It Engineer Name Role Phone DARLINE AN Unavailable [phone] Jatin Gamble Unavailable Unavailable Allergies No Known Allergies REASON FOR VISIT *General care, runs Gonzalez's Medications Medication SIG (Take, Route, Fr equency, Duration) Notes Start Date End Date Status Allopurinol Active [place] Active Famotidine Active Losartan Potassium A ctive [...] 04/28/2025 Encounters Encounter Location Date Provider Diagnosis [address] [id number] 04/28/2025 DARLINE AN Type 2 diabetes mellitus [...] * Michele MAYDOB:[birth year] (74 yo M)Acc No.[id number]:04/28/2025 Progress Notes Patient: Michele Ly Provider: Lena AN :1950 A ge:74 Y S ex:Male Date:04/28/2025 Address:[address], [facility] Subjective: * Chief Complaints: * [...] Verified. * Medications: T akingLosartan Potassium Famotidine [place] Allopurinol Medication List reviewed and reconciled with the patientTaking Losartan Potassium Taking Famotidine Taking [place] Taking Allopurinol Medication List reviewed and reconciled [...] 1 Week Billing Information: * Visit Code: 30893 Office Visit, New Pt., Level 3. * Electronic signature of RITA AN DPM on 06/01/2025 at 07:45 AM DATA INTEGRATION DEVELOPER Sign off status: Pending * Provider: Lena AN Date: 06/28/2024 Generated for Adela singh/Jun/Mateusz on: 08/02/2024 07:45 AM DATA INTEGRATION DEVELOPER
--- OUTSIDE RECORDS SUMMARY | 2025-06-01 07:45 | XMS_ITS | Patient Health Record ---
Author Organization [facility] Address [address] [place], [place] [address] Care Team Providers Care Claims Sorter Name Role Phone DARLINE AN Unavailable [phone] Jatin Gamble Unavailable Unavailable Allergies No Known Allergies Reason For Referral No Information Medications Medication SIG (Take, Route, Fr equency, Duration) Notes Start Date End Date Status Allopurinol Active [place] Active Famotidine Active Losartan Potassium A ctive [...] 04/28/2025 Encounters Encounter Location Date Provider Diagnosis [address] [id number] 04/28/2025 DARLINE AN Type 2 diabetes mellitus [...] Date Coverage End Date Medicare Part B [place] [address] [place] [phone] [id number] Michele Hernandez Self - patient is the insured 1 [employer] SENIOR SUPPLEMENTAL INS [address] [address] [place], [place] [phone] [id number] Michele Hernandez Self - patient is the insured Medical (General) History Medical History History ICD Code acid reflux kidney stones neuropathy Cancer Leg/Feet cramps Bladder infections Surgical History Surgery Date(Month/Year) Turbinate Reduction 03/2025
--- OUTSIDE RECORDS SUMMARY | 2025-06-01 07:45 | XMS_ITS | Encounter Summary ---
Author Organization [facility] Healthcare Address [address] [place] [address] Care Team Providers Care Forest Management Teacher Name Role Phone Jatin Gamble MD Primary Care Provider [phone] Hermelindo Butler MD Unavailable Roberto Rojo MD Unavailable [phone] Jatin Gamble MD Unavailable [phone] Garry Dukes MD Unavailable [phone] Francoise Fagan NP Unavailable [phone] Erlin Servin MD Unavailable [phone] Julian Valdez MD Unavailable Salvador Norris MD Unavailable Miscellaneous, Not In File Unavailable Unava ilJoaquim Bashir MD Unavailable [phone] Encounter Details Date Type Department Care Team (Late st Contact Info) Description 11/22/2021 Documentation [facility] Case Management [address] [place] [address] Forrest Epstein, RN Social History Tobacco Use Types Packs/Day Years Used Date Smoking Tobacco: Never Smokeless Tobacco: Never Alcohol Use Standard Drinks/Week Comments No 0 (1 standard drink = 0.6 oz pur e alcohol) Sex and Gender Information Value Date Recorded Sex Assigned at Not on file Legal Sex 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 SERVER Gender Identity Not on file Sexual Orientation [...] documented as of this encounter Care Teams Forest Management Teacher Relationship Specialty Start Date End Date Jatin Gamble MD [address] [place] [address] PCP - General 10/07/16 Hermelindo Butler MD [address] [place] [address] [facility] Oncology 12/02/17 Roberto Rojo MD [address] [place] [address] [facility] Hematology and Oncology 12/02/17 Jatin Gamble MD [address] [place] [address] Referring Physician Internal Medicine 12/02/17 Garry Dukes MD [address] [place] [address] Referring Physician Urology 12/02/17 05/27/23 Francoise Fagan NP [address] [place] [address] Nurse Practitioner Medical Oncology 08/03/20 Erlin Servin MD [address] [place] [address] Consulting Physician Otolaryngology 10/04/22 [place] [address] [place] [address] Consulting Physician Urology 05/28/23 Salvador Norris MD [address] [place] [address] Consulting Physician Infectious Diseases 09/15/24 Miscellaneous, Not In File 09/15/24 Joaquim Neff MD [address] [place], [place] [id number] Party Plan Sales Host/Hostess Nephrology 05/10/25 documented as of this encounter
--- OUTSIDE RECORDS SUMMARY | 2025-06-01 07:46 | XMS_ITS | Encounter Summary ---
Author Organization [facility] Address [address] [place] [address] Phone Care Team Providers Care Plate Finisher Name Role Phone Jatin Gamble MD Primary Care Provider [phone] Hermelindo Butler MD Unavailable Roberto Rojo MD Unavailable [phone] Jatin Gamble MD Unavailable [phone] Garry Dukes MD Unavailable [phone] Francoise Fagan NP Unavailable Erlin Servin MD Unavailable [phone] Julian Valdez MD Unavailable [phone] Salvador Norris MD Unavailable Miscellaneous, Not In File Unavailable Unava Joaquim Nichole MD Unavailable Encounter Details Date Type Department Care Team (Latest Contact Info) Description 10/16/2017 Orders Only [facility] CONVERSION Scanning, Provider Social History Tobacco Use Types Packs/Day Years Used Date Smoking Tobacco: Never Assessed Sex and Gender Information Value Date Recorded Sex Assigned at Not on file Legal Sex 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 Gender Identity Not on file Sexual [...] documented as of this encounter Care Teams Plate Finisher Relationship Specialty Start Date End Date Jatin Gamble MD [address] [place] [address] PCP - General 10/07/16 Hermelindo Butler MD [address] [place] [address] [facility] Medical Oncology 12/02/17 Roberto Rojo MD [address] [place] [address] [facility] Hematology and Oncology 12/02/17 Jatin Gamble MD [address] [place] [address] Referring Physician Internal Medicine 12/02/17 Garry Dukes MD [address] [place] [address] Referring Physician Urology 12/02/17 05/27/23 Francoise Fagan, SCREENING REPRESENTATIVE [address] [place] [address] Nurse Practitioner Medical Oncology 08/03/20 Erlin Servin MD [address] [place] [address] Consulting Physician Otolaryngology 10/04/22 [place] [address] [place] [address] Consulting Physician Urology 05/28/23 Salvador Norris MD [address] [place] [address] Consulting Physician Infectious Diseases 09/15/24 Miscellaneous, Not In File 09/15/24 Joaquim Neff MD [address] [place], [place] [address] Director Employee Safety And Health Nephrology 05/10/25 documented as of this encounter
--- OUTSIDE RECORDS SUMMARY | 2025-06-01 07:46 | XMS_ITS | Encounter Summary ---
Author Organization [facility] Healthcare Address [address] [place] [address] Care Team Providers Care Manager Zone Name Role Phone Jatin Gamble MD Primary Care Provider [phone] Hermelindo Butler MD Unavailable Roberto Rojo MD Unavailable [phone] Jatin Gamble MD Unavailable [phone] Garry Dukes MD Unavailable [phone] Francoise Fagan NP Unavailable [phone] Erlin Servin MD Unavailable [phone] Julian Valdez MD Unavailable [phone] Salvador Norris MD Unavailable Miscellaneous, Not In File Unavailable Unava ilJoaquim Bashir MD Unavailable [phone] Encounter Details Date Type Department Care Team (Late st Contact Info) Description 04/29/2022 Community Orders [facility] EpicCare Link Jatin Gamble MD [address] [place] [address] Elevated prostate specific antigen (PSA) (Primary Dx) Social History Tobacco Use Types Packs/Day Years Used Date Smoking Tobacco: Never Smokeless Tobacco: Never Alcohol Use Standard Drinks/Week Comments No 0 (1 standard drink = 0.6 oz pur e alcohol) Sex and Gender Information Value Date Recorded Sex Assigned at Not on file Legal Sex 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 IT SPECIALIST Gender Identity Not on file Sexual [...] documented as of this encounter Care Teams Manager Zone Relationship Specialty Start Date End Date Jatin Gamble MD [address] [place] [address] PCP - General 10/07/16 Hermelindo Butler MD [address] [place] [address] Medical Oncologist/Hematologi Medical Oncology 12/02/17 Roberto Rojo MD [address] [address] Medical Oncologist/Hematologi Hematology and Oncology 12/02/17 Jatin Gamble MD [address] [place] [address] Referring Physician Internal Medicine 12/02/17 Garry Dukes MD [address] [place] [address] Referring Physician Urology 12/02/17 05/27/23 Francoise Fagan NP [address] [place] [address] Nurse Practitioner Medical Oncology 08/03/20 Erlin Servin MD [address] [place] [address] Consulting Physician Otolaryngology 10/04/22 [place] [address] [address] Consulting Physician Urology 05/28/23 Salvador Norris MD [address] [place] [address] Consulting Physician Infectious Diseases 09/15/24 Miscellaneous, Not In File 09/15/24 Joaquim Neff MD [address] [place] [address] Ice Cream Vault Worker Nephrology 05/10/25 documented as of this encounter
--- OUTSIDE RECORDS SUMMARY | 2025-06-01 07:46 | XMS_ITS | Clinical Summary ---
Author Organization [facility] Address [address] [place] [address] Care Team Providers Care Folding Rules Printing Machine Operator Name Role Phone Unavailable Primary Care [...]
--- OUTSIDE RECORDS SUMMARY | 2025-06-01 07:46 | XMS_ITS | Clinical Summary ---
Author Organization [facility] Address [address] [place] [address] Care Team Providers Care Blunger Name Role Phone Jatin Gamble MD Primary Care Provider [phone] Hermelindo Butler MD Unavailable Roberto Rojo MD Unavailable [phone] Jatin Gamble MD Unavailable [phone] Francoise Fagan NP Unavailable [phone] Erlin Servin MD Unavailable [phone] Julian Valdez MD Unavailable Salvador Norris MD Unavailable Miscellaneous, Not In File Unavailable Unava ilable Joaquim Neff MD Unavailable [phone] Allergies Active Allergy Reactions Criticality Noted Date [...] Inpatient Care Coordination Overview Diagnosis MM Floor [address] Treatment Plan [facility] [id number] for Admission JOHN Transplant/IEC Planning BMT/IEC [...] Medical Assistants Post-Discharge Follow-Up Living Situation/Distance from [place], [place] (45 min) Caregiver Self, Lab/Transfusion Frequency [...] is a risk of orbital injury and LATIN AMERICAN STUDIES PROFESSOR injury which could result in blindness or [...] this. Assessment & Plan (07/09/2022 7:42 PM SOFTWARE QA SYSTEM SPECIALIST): I talked with him quite a [...] weeks. Assessment & Plan (05/26/2022 4:16 PM SOFTWARE QA SYSTEM SPECIALIST): He does have pretty significant sinusitis [...] day. Assessment & Plan (05/26/2022 4:17 PM SOFTWARE QA SYSTEM SPECIALIST): It is very possible that his cough could be due to sinusitis also. Hopefully that will continue to improve as we treat. He understands. Immunocompromised 11/13/2021 Multiple myeloma not having achieved remission 0 10/28/2021 Cancer Staging:Clinical stage from 10/16/2021:RISS Stage II(Eglb-4-lxoixqydzmavs (mg/L): 3.7, Albumin (g/dL): 4.2, ISS: Stage [...] and Dexamethasone in June 2021 Clinical trial [id number] initiated on 10/29/21; C46D1 08/03/24. BMT following [...] he got a TTE on 10/19 at [facility] however unclear why not currently in the system - May need to repeat TTE prior to treatment if results unavailable - Continue OI ppx with acyclovir 400mg BID - Begin trial [id number], a Bispecific Antibody Targeting BCMA treatment - [...] he got a TTE on 10/19 at [facility] however unclear why not currently in the system - May need to repeat TTE prior to treatment if results unavailable - Continue OI ppx with acyclovir 400mg BID - Begin trial [id number], a Bispecific Antibody Targeting BCMA treatment - [...] BID Assessment & Plan (05/31/2021 10:51 AM SOFTWARE QA SYSTEM SPECIALIST): Continue home pepcid, asx Renal mass 05/30/2021 Assessment & Plan (05/31/2021 10:51 AM SOFTWARE QA SYSTEM SPECIALIST): Admitted for observation after L renal [...] 07/17/2023 Assessment & Plan (05/31/2021 10:52 AM SOFTWARE QA SYSTEM SPECIALIST): Follows with oncology on daratumumab monotherapy [...] blood in urine Follow up pathology from bwemjjuar-rzy-cjgeyvpu high-grade papillary urothelial carcinoma (grade 2) --follow [...] blood in urine Follow up pathology from hirqgkqjo-wsb-wujjycdj high-grade papillary urothelial carcinoma (grade 2) --follow [...] supplementation Assessment & Plan (05/31/2021 10:51 AM SOFTWARE QA SYSTEM SPECIALIST): Stable on home losartan, nebivolol, triamterene-HCTZ [...] Department Care Team Description 04/27/2025 9:50 AM SOFTWARE QA SYSTEM SPECIALIST Office Visit [facility] Medicine Nephrology [facility] 5th [place] [address] [place] [address] Stage 3a chronic kidney disease (HCC) (Primary Dx); Benign prostatic hyperplasia without lower urinary tract symptoms; Primary hypertension; Renal osteodystrophy 04/19/2025 10:15 AM SOFTWARE QA SYSTEM SPECIALIST Office Visit [facility] Medicine Bone Marrow Transplant [address] [facility] [address] [place] [address] Ligia in, Hermelindo Stone MD Multiple myeloma, remission status unspecified (HCC) (Primary Dx) 04/19/2025 9:15 AM SOFTWARE QA SYSTEM SPECIALIST Clinical Support [facility] - Lab Collection [address] [facility] [address] [place] [address] Multiple myeloma, remission status unspecified (HCC) 04/18/2025 Telephone [facility] Medicine Scheduling [address] [place] [address] Francoise Santoro 03/22/2025 1:08 PM CDT Anesthesia Event [facility] Operating Room [address] [place] [id number] Bharat Parkinson MD Strand, Sarah B., MD 03/22/2025 1:00 PM CDT - 03/22/2025 2:30 PM CDT Surgery [facility] Operating Room [address] [place] [phone] Julian Valdez MD Transurethral Resection of Prostate 03/22/2025 10:49 AM CDT - 03/24/2025 5:53 PM CDT Hospital Encounter [address] [address] Julian Valdez MD Enlarged prostate with urinary obstruction Discharge Disposition: Discharge to home or self care 03/07/2025 10:15 AM CDT Pre-Admission Testing [facility] Pre Anesthesia Testing [address] [place] [phone] from Last 3 Months Immunizations Immunization [...] chemotherapy has chemo every 21 days at [facility] tx 09/24/22 Cough patient states D [...] often do you attend chur ch or restoration services? More than 4 times per year 12/22/2024 Do you belong to any clubs o r organizations such as anglican groups, unions, fraternal or athletic groups, or [...] any time in the past 12 m [facility], were you homeless or living in a jail (including now)? No 12/22/2024 Social Connection and Isolation Panel Answer Date Recorded In a typical week, how many times do you talk on the phone with family, friends, or neighbors? More than three times a week 03/24/2025 How often do you get togethe r with friends or relatives? More than three times a week 03/24/2025 How often do you attend chur or restoration services? More than 4 times per year 03/24/2025 Do you belong to any clubs o r organizations such as anglican groups, unions, fraternal or athletic groups, or [...] living in a jail (including now)? No 03/24/2025 [facility] Utilities Answer Date Recorded In the [...] on file Legal Sex 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 SOFTWARE QA SYSTEM SPECIALIST Gender Identity Not on file Sexual Orientation Not on file Last Filed Vital Signs Vital Sign Reading Time Taken Comments Blood Pressure 123/72 04/27/2025 9:48 AM SOFTWARE QA SYSTEM SPECIALIST Pulse 66 04/27/2025 9:48 AM SOFTWARE QA SYSTEM SPECIALIST Temperature 36.6 C (97.9 F) 04/19/2025 9:02 AM SOFTWARE QA SYSTEM SPECIALIST Respiratory Rate 18 04/19/2025 9:02 AM SOFTWARE QA SYSTEM SPECIALIST Oxygen Saturation 99% 04/27/2025 9:48 AM SOFTWARE QA SYSTEM SPECIALIST Inhaled Oxygen Concentration - - Weight 126.1 kg (278 lb) 04/27/2025 9:48 AM SOFTWARE QA SYSTEM SPECIALIST Height 172.7 cm (5' 8) 04/27/2025 9:48 AM SOFTWARE QA SYSTEM SPECIALIST Body Mass Index 42.27 04/27/2025 9:48 AM SOFTWARE QA SYSTEM SPECIALIST Plan of Treatment Health Maintenance Due Date [...] history exists Medical Devices Implanted Type Area Senior Oracle Applications Developer Device Identifier Shelf Expiration Date Model / Serial / Lot Port Other - see comments Right: Chest Wall Description:Upon arrival to , not accessed [employer] Stent Ureteral Set Double Pigtail Tapered Tip Contour [id number] Hydroplus Coated [id number] - [id number] Implanted:Qty: 1 on 03/22/2025 by Julian Valdez MD at [facility] Left: Ureter [employer] 11/18/2027 [id number] / / [id number] Explanted Type Area Senior Oracle Applications Developer Device Identifier Shelf Expiration Date Model / Serial / Lot [employer] Stent Ureteral Set Double Pigtail Tapered Tip Contour [id number] Hydroplus Coated [id number] - [id number] Implanted:Qty: 1 on 12/16/2024 by Julian Valdez MD at [facility] Explanted:Qty: 1 on 03/22/2025 by Julian Valdez MD at [facility] Left: Ureter [employer] 04/21/2027 [id number] / / [id number] Procedures Procedure Name Priority Date/Time Associated Diagnosis Comments DIFFERENTIAL AUTO Routine 04/19/2025 8:4 1 AM SOFTWARE QA SYSTEM SPECIALIST Multiple myeloma, remission status unspecified (HCC) CBC WITH AUTO DIFFERENTIAL Routine 04/19/2025 8:41 AM SOFTWARE QA SYSTEM SPECIALIST Multiple myeloma, remission status unspecified (HCC) IMMUNOGLOBULIN FREE LIGHT CHAINS Routine 04/19/2025 8:41 AM SOFTWARE QA SYSTEM SPECIALIST Multiple myeloma, remission status unspecified (HCC) PROTEIN ELECTROPHORESIS, WITH REFLEX, SERUM Routine 04/19/2025 8:41 AM SOFTWARE QA SYSTEM SPECIALIST Multiple myeloma, remission status unspecified (HCC) IMMUNOTYPING Routine 04/19/2025 8:41 AM SOFTWARE QA SYSTEM SPECIALIST Multiple myeloma, remission status unspecified (HCC) EGFR Routine 04/19/2025 8:35 AM SOFTWARE QA SYSTEM SPECIALIST Multiple myeloma, remission status unspecified (HCC) COMPREHENSIVE METABOLIC PANEL Routine 04/19/2025 8:35 AM SOFTWARE QA SYSTEM SPECIALIST Multiple myeloma, remission status unspecified (HCC) IGA Routine 04/19/2025 8:35 AM SOFTWARE QA SYSTEM SPECIALIST Multiple myeloma, remission status unspecified (HCC) IGG Routine 04/19/2025 8:35 AM SOFTWARE QA SYSTEM SPECIALIST Multiple myeloma, remission status unspecified (HCC) IGM Routine 04/19/2025 8:35 AM SOFTWARE QA SYSTEM SPECIALIST Multiple myeloma, remission status unspecified (HCC) LACTATE DEHYDROGENASE Routine 04/19/2025 8:35 AM SOFTWARE QA SYSTEM SPECIALIST Multiple myeloma, remission status unspecified (HCC) [...] HOUR IP Routine 03/22/2025 1:53 PM CDT IN AN PROCEDURE PLACEHOLDER Routine 03/22/2025 1:45 PM CDT IN AN ELECTIVE ENDOTRACHEAL AIRWAY Routine 03/22/2025 1:45 PM CDT EXCHANGE STENT - URETERAL 03/22/2025 1:13 PM CDT Enlarged prostate with urinary obstruction CYSTOSCOPY/TRANSURETHR AL RESECTION OF PROSTATE 03/22/2025 1:13 PM CDT Enlarged prostate with urinary obstruction PSA DIAGNOSTIC Routine 08/06/2024 7:43 AM SOFTWARE QA SYSTEM SPECIALIST Multiple myeloma, remission status unspecified (HCC) HEPATITIS C ANTIBODY STAT 10/16/2021 9:50 AM CDT Multiple myeloma in relapse (HCC) from Last 3 Months or Most Recently Relevant to Health Maintenance Results * Immunotyping, serum with interpretation (04/19/2025 8:41 AM SOFTWARE QA SYSTEM SPECIALIST) Immunosubtraction Please see comment Comment: NO PARAPROTEIN DETECTED Reviewed and signed by Rufino Huff MD, PhD 04/20/2025 Blood 04/19/2025 8:41 AM SOFTWARE QA SYSTEM SPECIALIST 04/19/2025 9:18 AM SOFTWARE QA SYSTEM SPECIALIST us Hermelindo Butler MD LAB BLOOD ORDER ELANA Final Result [facility] [address] [facility] Department [place] [address] * Differential, auto (04/19/2025 8:41 AM SOFTWARE QA SYSTEM SPECIALIST) Neutrophil abs 5.08 1.50 - 6.50 K/cumm Comment:Testing performed by : [facility], [address] [place] [phone] Lymphocyte abs 1.04 0.80 - 3.30 K/cumm [facility] Comment:Testing performed by : [facility], [address] [place] [phone] Monocyte abs 0.56 0.20 - 0.80 K/cumm [facility] Comment:Testing performed by : [facility], [address] [place] [phone] Eosinophil abs 0.38 0.00 - 0.50 K/cumm [facility] Comment:Testing performed by : [facility], [address] [place] [phone] Basophil abs 0.04 0.00 - 0.10 K/cumm [facility] Comment:Testing performed by : [facility], [address] [place] [phone] Neutrophil pct 71.6 % [facility] Comment: Interpretive Data Percent cell count reference ranges are not reported, since discordance with absolute values may lead to misinterpretation of CBC data. Current Interpretive Data was last revised on 2017. Testing performed by: [facility], [address] [place] [phone] Lymphocyte pct 14.7 % [facility] Comment: Interpretive Data Percent cell count reference ranges are not reported, since discordance with absolute values may lead to misinterpretation of CBC data. Current Interpretive Data was last revised on 2017. Testing performed by: [facility], [address] [place], [place] [phone] Monocyte pct 7.9 % [facility] Comment: Interpretive Data Percent cell count reference ranges are not reported, since discordance with absolute values may lead to misinterpretation of CBC data. Current Interpretive Data was last revised on 2017. Testing performed by: [facility], [address] [place] [phone] Eosinophil pct 5.4 % MT SUAREZ Comment: Interpretive Data Percent cell count reference ranges are not reported, since discordance with absolute values may lead to misinterpretation of CBC data. Current Interpretive Data was last revised on 2017. Testing performed by: [facility], [address] [place] [phone] Basophil pct 0.5 % MT SUARE[facility] Comment: Interpretive Data Percent cell count reference ranges are not reported, since discordance with absolute values may lead to misinterpretation of CBC data. Current Interpretive Data was last revised on 2017. Testing performed by: [facility], [address] [place] [phone] Blood 04/19/2025 8:41 AM SOFTWARE QA SYSTEM SPECIALIST 04/19/2025 8:47 AM SOFTWARE QA SYSTEM SPECIALIST Hermelindo Butler MD LAB BLOOD ORDER ELANA Final Result [facility] One [facility] Department [place] [address] * (ABNORMAL) Immunoglobulin free light chains (04/19/2025 8:41 AM SOFTWARE QA SYSTEM SPECIALIST) Descanso/Lambda ratio BJ 0.59 0.26 - 1.65 Comment: Interpretive Data The Binding Site FreeLite assay procedure was used. Results from different manufacturers or methods may not be comparable. Serial testing should be performed using the same methods and instrumentation. Current Interpretive Data was last revised on 2023. Descanso free light chain [facility] 0.10(L) 0.33 - [...] revised on 2023. Blood 04/19/2025 8:41 AM SOFTWARE QA SYSTEM SPECIALIST 04/19/2025 9:18 AM SOFTWARE QA SYSTEM SPECIALIST Hermelindo Butler MD LAB BLOOD ORDER ELANA Final Result [facility] Department [place] [address] * (ABNORMAL) CBC with auto differential (04/19/2025 8:41 AM SOFTWARE QA SYSTEM SPECIALIST) WBC 7.10 3.80 - 9.90 K/cumm Comment:Testing performed by : [facility], [address] [place] [address] Hgb 10.2(L) 13.0 - 17.5 g/dL [facility] Comment:Testing performed by : [facility], [address] [place] [address] Hct 31.3(L) 38.9 - 50.3 % [facility] Comment:Testing performed by : [facility], [address] [place] [address] Plt 187 150 - 400 K/cumm [facility] Comment:Testing performed by : [facility], [address] [place] [address] MPV 6.9 6.8 - 10.4 fL [facility] Comment:Testing performed by : [facility], [address] [place] [address] RBC 3.35(L) 4.30 - 5.80 M/cumm [facility] Comment:Testing performed by : [facility], [address] [place] [address] MCV 93.3 81.3 - 96.4 fL [facility] Comment:Testing performed by : [facility], [address] [place], [place] [phone] MCH 30.5 27.1 - 33.3 pg MT SUAREZ Comment:Testing performed by : [facility], [address] [place], [place] [phone] MCHC 32.7 32.3 - 35.7 g/dL MT SUAREZ Comment:Testing performed by : [facility], [address] [place], [place] [phone] RDW CV 15.4(H) 11.1 - 14.9 % MT SUAREZ Comment:Testing performed by : [facility], [address] [place], [place] [phone] NRBC abs 0.00 0.00 - 0.01 K/cumm MT SUAREZ Comment:Testing performed by : [facility], [address] [place] [phone] Blood 04/19/2025 8:41 AM SOFTWARE QA SYSTEM SPECIALIST 04/19/2025 8:47 AM SOFTWARE QA SYSTEM SPECIALIST Hermelindo Butler MD LAB BLOOD ORDER ELANA Final Result [facility] Department [place] [address] * (ABNORMAL) Protein electrophoresis with reflex, serum with interpretation (04/19/2025 8:41 AM SOFTWARE QA SYSTEM SPECIALIST) Protein, sr 5.9(L) 6.2 - 8.2 g/dL Albumin 3.8 3.2 - 5.0 g/dL [facility] Alpha-1 globulin 0.4 0.2 - 0.4 g/dL [facility] Alpha-2 globulin 0.8 0.5 - 1.0 g/dL [facility] Beta-1 globulin 0.5 0.3 - 0.6 g/dL [facility] Beta-2 globulin 0.3 0.2 - 0.6 g/dL [facility] Gamma globulin 0.2(L) 0.5 - 1.7 g/dL [facility] SPEP interp Please see comment [facility] Comment: No apparent monoclonal peak Decreased gamma globulins Electrophoretic pattern appears similar to previous sample 01/19/2025 See immunotyping for further information Reviewed and signed by Rufino Huff MD, PhD 04/20/2025 Blood 04/19/2025 8:41 AM SOFTWARE QA SYSTEM SPECIALIST 04/19/2025 9:18 AM SOFTWARE QA SYSTEM SPECIALIST Hermelindo Butler MD LAB BLOOD ORDER ELANA Final Result Performing Organization Address City/[facility]/ZIP Co de Phone Number [facility] Department [place] [address] * (ABNORMAL) eGFR (04/19/2025 8:35 AM SOFTWARE QA SYSTEM SPECIALIST) eGFR 31(L) >=60 mL/min/1. 73 m2 [...] last reviewed 2021. Blood 04/19/2025 8:35 AM SOFTWARE QA SYSTEM SPECIALIST 04/19/2025 8:49 AM SOFTWARE QA SYSTEM SPECIALIST Hermelindo Butler MD LAB BLOOD ORDER ELANA Final Result Performing Organization Address City/[facility]/ZIP Co de Phone Number [facility] Department [place] [address] * Lactate dehydrogenase (LD) (04/19/2025 8:35 AM SOFTWARE QA SYSTEM SPECIALIST) Pathologist [facility] [place] Lactate dehydrogenase (LDH) 131 100 - 250 Units/L Blood 04/19/2025 8:35 AM SOFTWARE QA SYSTEM SPECIALIST 04/19/2025 8:49 AM SOFTWARE QA SYSTEM SPECIALIST Hermelindo Butler MD LAB BLOOD ORDER ELANA Final Result [facility] [place] [address] * (ABNORMAL) IgA (04/19/2025 8:35 AM SOFTWARE QA SYSTEM SPECIALIST) [facility] Immunoglobulin A <5(L) 70 - 400 mg/dL Blood 04/19/2025 8:35 AM SOFTWARE QA SYSTEM SPECIALIST 04/19/2025 9:06 AM SOFTWARE QA SYSTEM SPECIALIST us Hermelindo Butler MD LAB BLOOD ORDER ELANA Final Result Performing Organization Address City/[facility]/ZIP Co de Phone Number [facility] Department [place] [address] * (ABNORMAL) IgM (04/19/2025 8:35 AM SOFTWARE QA SYSTEM SPECIALIST) [facility] Immunoglobulin M <25(L) 40 - 230 mg/dL Blood 04/19/2025 8:35 AM SOFTWARE QA SYSTEM SPECIALIST 04/19/2025 9:06 AM SOFTWARE QA SYSTEM SPECIALIST Hermelindo Butler MD LAB BLOOD ORDER ELANA Final Result Performing Organization Address City/[facility]/ZIP Co de Phone Number [facility] [place] [address] * (ABNORMAL) IgG (04/19/2025 8:35 AM SOFTWARE QA SYSTEM SPECIALIST) Immunoglobulin G <300(L) 700 - 1,600 mg/dL Blood 04/19/2025 8:35 AM SOFTWARE QA SYSTEM SPECIALIST 04/19/2025 9:06 AM SOFTWARE QA SYSTEM SPECIALIST Hermelindo Butler MD LAB BLOOD ORDER ELANA Final Result [facility] [address] [facility] Department [place] [address] * (ABNORMAL) Comprehensive metabolic panel (04/19/2025 8:35 AM SOFTWARE QA SYSTEM SPECIALIST) Sodium 141 135 - 145 mmol/L Potassium, pl 4.3 3.3 - 4.9 mmol/L [facility] Chloride 106 97 - 110 mmol/L [facility] CO2 26 22 - 32 mmol/L [facility] Anion gap 9 2 - 15 mmol/L [facility] BUN 36(H) 6 - 25 mg/dL [facility] Creatinine 2.23(H) 0.80 - 1.30 mg/dL [facility] Glucose 125 70 - 199 mg/dL [facility] Comment: Interpretive Data Fasting glucose >/= [...] 2022. Calcium 9.4 8.5 - 10.3 mg/dL [facility] Bilirubin, total 0.4 0.1 - 1.2 mg/dL [facility] Protein, pl 6.2(L) 6.5 - 8.5 g/dL [facility] Albumin 4.0 3.5 - 5.0 g/dL [facility] Alk phos 77 40 - 130 Units/L [facility] ALT 14 7 - 55 Units/L [facility] AST 13 10 - 50 Units/L [facility] Blood 04/19/2025 8:35 AM SOFTWARE QA SYSTEM SPECIALIST 04/19/2025 8:49 AM SOFTWARE QA SYSTEM SPECIALIST us Hermelindo Butler MD LAB BLOOD ORDER ELANA Final Result Performing Organization Address City/[facility]/ZIP Co de Phone Number [facility] One [facility] Department [place] [address] * (ABNORMAL) eGFR (03/24/2025 4:22 AM CDT) [...] NEUMANN LAB BLOOD ORDERABLES F inal Result [facility] [address] Department [place] [address] * (ABNORMAL) CBC without differential (03/24/2025 4:22 AM CDT) WBC 9.82 3.80 - 9.90 K/cumm Hgb 8.8(L) 13.0 - 17.5 g/dL [facility] Hct 26.8(L) 38.9 - 50.3 % [facility] Plt 140(L) 150 - 400 K/cumm [facility] MPV 9.8 9.1 - 12.3 fL [facility] RBC 2.70(L) 4.30 - 5.80 M/cumm [facility] MCV 99.3(H) 81.3 - 96.4 fL [facility] MCH 32.6 27.1 - 33.3 pg [facility] MCHC 32.8 32.3 - 35.7 g/dL [facility] RDW CV 16.0(H) 11.1 - 14.9 % [facility] RDW SD 58.0(H) 35.7 - 48.1 fL [facility] NRBC abs 0.00 0.00 - 0.01 K/cumm [facility] Blood 03/24/2025 4:22 AM CDT 03/24/2025 5:59 AM CDT Luigi NEUMANN LAB BLOOD ORDERABLES F inal Result [facility] [address] Department [place] [address] * (ABNORMAL) Basic metabolic panel (03/24/2025 4:22 AM CDT) Pathologist [facility] [place] Sodium 143 135 - 145 mmol/L Potassium, pl 3.5 3.3 - 4.9 mmol/L [facility] Chloride 105 97 - 110 mmol/L [facility] CO2 25 22 - 32 mmol/L [facility] Anion gap 13 2 - 15 mmol/L [facility] BUN 43(H) 6 - 25 mg/dL [facility] Creatinine 2.95(H) 0.80 - 1.30 mg/dL [facility] Glucose 129 70 - 199 mg/dL [facility] Comment: Interpretive Data Fasting glucose >/= 126 [...] 2022. Calcium 7.9(L) 8.5 - 10.3 mg/dL [facility] Blood 03/24/2025 4:22 AM CDT 03/24/2025 5:59 AM CDT Luigi NEUMANN LAB BLOOD ORDERABLES F inal Result [facility] [address] Department [place] [address] * [place] Kidney Complete (03/23/2025 4:21 PM [...] ORDERABLES [place] l Result Performing Organization Address [facility] Co de Phone Number [facility] [address] [facility] [place] [address] * (ABNORMAL) Hemoglobin and hematocrit (03/23/2025 10:32 AM CDT) Hgb 9.6(L) 13.0 - 17.5 g/dL Hct 29.0(L) 38.9 - 50.3 % [facility] Blood 03/23/2025 10:3 2 AM CDT 03/23/2025 10:55 AM CDT Julian Valdez MD LAB BLOOD ORDERABLES Angeles l Result Performing Organization Address [facility] de Phone Number [facility] [address] [facility] [place] [address] * (ABNORMAL) Basic metabolic panel (03/23/2025 10:32 AM CDT) Sodium 143 135 - 145 mmol/L Potassium, pl 3.9 3.3 - 4.9 mmol/L [facility] Chloride 104 97 - 110 mmol/L [facility] CO2 23 22 - 32 mmol/L [facility] Anion gap 16(H) 2 - 15 mmol/L [facility] BUN 46(H) 6 - 25 mg/dL [facility] Creatinine 3.14(H) 0.80 - 1.30 mg/dL [facility] Glucose 132 70 - 199 mg/dL [facility] Comment: Interpretive Data Fasting glucose >/= 126 [...] MD LAB BLOOD ORDERABLES Angeles nicole Result [facility] [address] Department [place] [address] * Surgical pathology (03/22/2025 3:12 PM CDT) Tissue (Prostate, transurethral resection) 03/22/2025 3:12 PM CDT Comment:Placed in formalin a t end of case Narrative PATHOLOGY [facility] - 03/24/2025 5:06 PM CDT [place] [id number] [place], [place] [address] Tele: Lucrecia Woods MD - Business Performance Manager Note to Patients: This report may contain [...] REPORT Patient Name: BUFFY VALLEDuke PITTMAN Address: [facility] [place] [address]- Gender: M : 1950 (Age: 74) Service: Surgery Location: [place] [address], Hospital #: [id number] Patient Type: [facility] INPATIENT Taken: 03/22/2025 Received 03/22/2025 Reported: 03/24/2025 Physician(s): MD Jatin Nguyen M.D. 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 Report Reviewed and Electronically Signed By Shirlene Hyde M.D. DIAGNOSIS COMMENT: The finding was relayed to Dr. Valdez via secure Elliptic chat on 03/24/2026 at 5:05 p.m. SPECIMEN TYPE: A: PROSTATE CLINICAL IMPRESSION AND HISTORY: Enlarged prostate with urinary obstruction GROSS DESCRIPTION: Received in formalin labeled with [place] and prostate multiple childers irregular tissue fragments measuring 9.8 x 6.3 x 1.5 cm in aggregate and weighing 32 g in toto. Biz[employer] Software Developer sections are submitted in A1-A13. The remainder is submitted in A14-A20. [facility]/03/22/2025 19:05 ,[facility] MICROSCOPIC DESCRIPTION: Microscopic examination supports [...] P504S is negative. Clerical Data Follows A; 84454, 27336, 55436(2) REPORT IMAGES AND/OR SCANNED DOCUMENTS ONLY VIEWABLE IN PDF FORMAT The immunohistochemical test(s) cited in this report, if any, was developed and its performance characteristics determined by [facility] Pathology Department. It has not been cleared or approved by the U.S. Food and Drug Administration. The FDA has determined that such clearance or approval is not necessary. This test is used for clinical purposes. It should not be regarded as investigational or for research. [facility] Laboratory is certified under the Clinical Laboratory [...] part or completely in the following laboratories: [facility], [address] [place] [address], [address] [place] [address]. Julian Valdez MD LAB PATHOLOGY ORDERABLES Final Result Performing Organization Address [facility]/ZIP Co de Phone Number PATHOLOGY [facility] Laboratory Receiving [address] [place] [address] * [place] Fluoroscopy < 1 Hour (03/22/2025 1:53 PM CDT) Narrative [facility] - 03/22/2025 1:56 PM CDT The images from this study are not interpreted by Radiology. Please refer to the physician's procedure / OR operative note. Julian Valdez MD IMG FLUOROSCOPY PROCEDURE S Final Result Performing Organization Address [facility]/ZIP Co de Phone Number [facility] * IN AN ELECTIVE ENDOTRACHEAL AIRWAY, IN AN PROCEDURE PLACEHOLDER (03/22/2025 1:45 PM CDT) Tiffany Davis CRNA - 03/22/2025 1:45 PM CDT Tiffany Deluca CRNA 03/22/2025 1:46 PM Airway Patient location: OR Urgency: elective Indications for airway management: anesthesia Difficult airway: no Staff: Placed by: ROTARY VENEER MACHINE OPERATOR: Tiffany Deluca CRNA Emergent airway documentation: Risks [...] * (ABNORMAL) PSA diagnostic (08/06/2024 7:43 AM SOFTWARE QA SYSTEM SPECIALIST) Pathologist [facility] [place] PSA-Total 6.28(H) [...] last revised 21. Blood 08/06/2024 7:43 AM SOFTWARE QA SYSTEM SPECIALIST 08/06/2024 7:52 AM SOFTWARE QA SYSTEM SPECIALIST Hermelindo Butler MD LAB BLOOD ORDER ELANA Final Result [facility] Department [place] [address] * Hepatitis C antibody (10/16/2021 9:50 AM CDT) Pathologist [facility] [place] Hep C Ab Nonreactive Nonreactive [facility] Comment:Antibodies to HCV no t detected. Does NOT exclude the possibility of recent exposure to HCV. Blood 10/16/2021 9:50 AM CDT 10/16/2021 11:22 AM CDT Hermelindo dupree MD LAB MICROBIOLOGY - GENERAL ORDERABLES Edited Result - Final [facility] Department [place] [address] from Last 3 Months or Most Recently Relevant to Health Maintenance Insurance MEDICARE AET[employer] SENIOR SUPPLEMENT MEDICARE AET SENIOR SUPPLEMENT MEDICARE AETNA SENIOR SUPPLEMENT Advance Directives For more information, please contact: [phone] Documents on File Type Date Recorded Patient Biztalk Software Developer Expl anation ADVANCE DIRECTIVE 11/29/2017 11:05 AM FOX R OF COMPUTER TECHNICIAN ADVANCE DIRECTIVE 11/12/2017 3:59 PM POWER OF COMPUTER TECHNICIAN * Full Code (Latest Code Status [...] 1:51 AM 09/15/2024 9:22 PM Care Teams Blunger Relationship Specialty Start Date End Date Jatin Gamble MD [address] [place] [address] PCP - General 10/07/16 Hermelindo Butler MD [address] [place] [address] Medical Oncologist/Hematologi Medical Oncology 12/02/17 Roberto Rojo MD [address] [place] [address] Medical Oncologist/Hematologi Hematology and Oncology 12/02/17 Jatin Gamble MD [address] [place] [address] Referring Physician Internal Medicine 12/02/17 Francoise Fagan NP [address] [place] [address] Nurse Practitioner Medical Oncology 08/03/20 Erlin Servin MD [address] [place] [address] Consulting Physician Otolaryngology 10/04/22 [place] [address] [address] Consulting Physician Urology 05/28/23 Salvador Norris MD [address] [place] [address] Consulting Physician Infectious Diseases 09/15/24 Miscellaneous, Not In File 09/15/24 Joaquim Neff MD [address] [facility] [address] [place] [address] Marine Equipment Engineer Nephrology 05/10/25
--- OUTSIDE RECORDS SUMMARY | 2025-06-01 07:46 | XMS_ITS ---
Author Organization [facility] Address [address] [place] [address] Care Team Providers Care Clinical Practitioner Name Role Phone Jatin Gamble MD Primary Care Provider [phone] Hermelindo Butler MD Unavailable Roberto Rojo MD Unavailable [phone] Jatin Gamble MD Unavailable [phone] Francoise Fagan NP Unavailable [phone] Erlin Servin MD Unavailable [phone] Julian Valdez MD Unavailable Salvador Norris MD Unavailable Miscellaneous, Not In File Unavailable Unava ilable Joaquim Neff MD Unavailable [phone] Active Problems Patient Care Coordination No te Formatting of this note is d ifferent from the original. BMT Inpatient Care Coordination Overview Diagnosis [place] [address] Treatment Plan Clinical Trial [id number] Ramesh Reason for Admission JOHN Transplant/IEC Planning [...] Medical Assistants Post-Discharge Follow-Up Living Situation/Distance from [place], [place] (45 min) Caregiver Self, Lab/Transfusion Frequency [...] is a risk of orbital injury and CREW CHIEF injury which could result in blindness or [...] this. Assessment & Plan (07/09/2022 7:42 PM CNC OPERATOR MACHINIST): I talked with him quite a bit [...] weeks. Assessment & Plan (05/26/2022 4:16 PM CNC OPERATOR MACHINIST): He does have pretty significant sinusitis and [...] day. Assessment & Plan (05/26/2022 4:17 PM CNC OPERATOR MACHINIST): It is very possible that his cough could be due to sinusitis also. Hopefully that will continue to improve as we treat. He understands. Immunocompromised 11/13/2021 Multiple myeloma not having achieved remission 0 10/28/2021 Cancer Staging:Clinical stage from 10/16/2021:RISS Stage II(Ojhi-7-skusvmjkrffel (mg/L): 3.7, Albumin (g/dL): 4.2, ISS: Stage [...] and Dexamethasone in June 2021 Clinical trial [id number] initiated on 10/29/21; C46D1 08/03/24. BMT following [...] he got a TTE on 10/19 at [place] however unclear why not currently in the system - May need to repeat TTE prior to treatment if results unavailable - Continue OI ppx with acyclovir 400mg BID - Begin trial [id number], a Bispecific Antibody Targeting BCMA treatment - [...] he got a TTE on 10/19 at [place] however unclear why not currently in the system - May need to repeat TTE prior to treatment if results unavailable - Continue OI ppx with acyclovir 400mg BID - Begin trial [id number], a Bispecific Antibody Targeting BCMA treatment - [...] BID Assessment & Plan (05/31/2021 10:51 AM CNC OPERATOR MACHINIST): Continue home pepcid, asx Renal mass 05/30/2021 Assessment & Plan (05/31/2021 10:51 AM CNC OPERATOR MACHINIST): Admitted for observation after L renal mass [...] 07/17/2023 Assessment & Plan (05/31/2021 10:52 AM CNC OPERATOR MACHINIST): Follows with oncology on daratumumab monotherapy -counts [...] blood in urine Follow up pathology from toodvrxof-xbh-twzdflfr high-grade papillary urothelial carcinoma (grade 2) --follow [...] blood in urine Follow up pathology from wygazfbet-rzx-qudrxwrf high-grade papillary urothelial carcinoma (grade 2) --follow [...] supplementation Assessment & Plan (05/31/2021 10:51 AM CNC OPERATOR MACHINIST): Stable on home losartan, nebivolol, triamterene-HCTZ 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/23/2013 Current Treatment and Therapy Plans - INPT/OUTPT - [facility] - MM - [id number] - Arm B - Dose Expansion Phase - TNB-383B Monotherapy* Plan Start Date:10/29/2021 Plan Provider:Hermelindo Butler MD Linked Problems Multiple myeloma in relapse (HCC) Treatment Medications Current Day (Day 1 , Cycle 51 - Planned for 01/25/2025) INV-[facility] (/TN B-383B.0001) Etentamig (TNB-383B/ABBV-383) IVPB [facility] (TNB-383B/ABBV-383) (/TNB-383B.2024)[facility] sodium chloride 0.9 % [facility] Etentamig (TNB-383B/ABBV-383) (IVSS-FREE FORMULATION) (/TNB383B.2024) 40 mg [...]
[2025-06-01 08:25] LABS: MALB Creatinine Ratio 118.5 mg/g (0-30)
[2025-06-01 09:29] LABS: Albumin Level 4.0 g/dL (3.5-5.1); Anion Gap 9 mmol/L (4-12); Blood Urea Nitrogen 44 mg/dL (9-20); Calcium 9.3 mg/dL (8.4-10.2); Carbon Dioxide 24 mmol/L (22-30); Chloride 107 mmol/L (98-107); Estimated Glomerular Filt Rate 35; Glucose 139 mg/dL (65-110); Osmolality Calculated 303 mOsm/kg (285-295); Potassium 4.0 mmol/L (3.4-5.0); Sodium 140 mmol/L (137-145)
[2025-06-02 07:08] LABS: eGFR 26 (>59)
== END 2025-06-01 07:40 | disposition home or self-care (01) ==
PROVIDERS: PCP Internal Medicine
DX: N18.31 Chronic kidney disease, stage 3a (principal)
CPT/HCPCS: 36415; 80069; 82043; 82610